=== PATIENT | male | born 1955 | race Caucasian/White ===

== ENCOUNTER 2022-09-25 19:50 | Outpatient (OUT) | payer OTHER, SELFPAY | END 2022-09-25 19:51 | disposition home or self-care (01) | LOC: SLEEP 19:50 | PROVIDERS: PCP Psychiatry & Neurology Neurology; Visit Provider Psychiatry & Neurology Neurology | DX: G47.33 Obstructive sleep apnea (adult) (pediatric) (principal) | CPT/HCPCS: 95811 ==

== ENCOUNTER 2023-04-11 09:25 | Outpatient (OUT) | payer MEDICARE, SELFPAY ==
--- NOTE | 2023-04-11 | XR_ITS ---
The [address] [address] Patient Name: ANAI PELAYO MRN: [id number] date: 1955 Sex: M Assigned Patient Location: Current Patient Location: Accession/Order Number: [id number] Exam Date: 04/11/2023 09:44 Report Date: 04/11/2023 11:04 At the request of: SALINA LEE Procedure: XR foot LT min 3V PROCEDURE: XR ankle LT min 3V, XR foot LT min 3V HISTORY: LEFT ANKLE PAIN , left foot pain COMPARISON: None FINDINGS: BONES:Small area of cortical lucency/destruction along lateral margin of lateral malleolus. No fracture or dislocation. 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 SOFT TISSUES:Soft tissue swelling and skin surface defect lateral to the lateral malleolus suggestive of ulceration. Soft tissue swelling/postsurgical changes overlying distal site of amputation. Atherosclerotic coronary artery disease. EFFUSION:None visible. OTHER: Negative. XR/XR foot LT min 3V IMPRESSION: 1. Soft tissue ulceration overlying the lateral malleolus with mild cortical destruction of the lateral malleolus suggesting osteomyelitis. Electronically authenticated by: ARLEN ALEXANDRA Date: 04/11/2023 11:04
--- NOTE | 2023-04-11 | XR_ITS ---
The [address] [address] Patient Name: ANAI PELAYO MRN: [id number] date: 1955 Sex: M Assigned Patient Location: Current Patient Location: Accession/Order Number: [id number] Exam Date: 04/11/2023 09:44 Report Date: 04/11/2023 11:04 At the request of: SALINA LEE Procedure: XR ankle LT min 3V PROCEDURE: XR ankle LT min 3V, XR foot LT min 3V HISTORY: LEFT ANKLE PAIN , left foot pain COMPARISON: None FINDINGS: BONES:Small area of cortical lucency/destruction along lateral margin of lateral malleolus. No fracture or dislocation. 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 SOFT TISSUES:Soft tissue swelling and skin surface defect lateral to the lateral malleolus suggestive of ulceration. Soft tissue swelling/postsurgical changes overlying distal site of amputation. Atherosclerotic coronary artery disease. EFFUSION:None visible. OTHER: Negative. XR/XR ankle LT min 3V IMPRESSION: 1. Soft tissue ulceration overlying the lateral malleolus with mild cortical destruction of the lateral malleolus suggesting osteomyelitis. Electronically authenticated by: ARLEN ALEXANDRA Date: 04/11/2023 11:04
== END 2023-04-11 09:26 | disposition home or self-care (01) ==
LOC: WC 09:26
PROVIDERS: PCP Psychiatry & Neurology Neurology; Visit Provider Podiatrist Foot & Ankle Surgery
DX: L89.523 Pressure ulcer of left ankle, stage 3 (principal)
CPT/HCPCS: 73610; 73630; A6213; G0463

== ENCOUNTER 2023-04-16 07:50 | Outpatient (OUT) | payer MEDICARE, SELFPAY ==
--- OUTSIDE RECORDS SUMMARY | 2023-04-16 07:56 | XMS_ITS | CCD ---
Author Name Unknown Address [address] [place] [address] Organization [facility] Care Team Providers Care Program Paraprofessional Name Role Phone IRAIS, DEON ESPINO Primary Care Unavailable Chirag Gutierrez DO Attending Un available UNIQUESDEON Consulting Unavailable YUHAS, DEON SRINIVAS Primary Care Unavailable Chirag Gutierrez DO Attending Un available YUHAS, DEON SRINIVAS Consulting Unavailable YUHAS, DEON SRINIVAS Primary Care Unavailable Chirag Gutierrez DO Attending Un available YUHAS, DEON SRINIVAS Primary Care Unavailable Chirag Gutierrez DO Attending Un available Pako Aguilar Unavailable Reddy Brandt Unavailable DO Deon Braxton Primary Care Provider DO Reddy Brandt Attending Provider DO Reddy Brandt Referring Provider CRISTINA Bailey Attending Provider DO Reddy Brandt Admit Provider [phone] NBA Hope Other Provider Unavailable NBA Ruiz Other Provider Unavailable NBA Sorensen Other Provider Unavailable NBA Jasso Other Provider Unavailable NBA Frederick Other Provider Unavailable NBA Parmar Other Provider Unavailable MD Fredi Mendez Other Provider KRUNAL Galvin Other Provider [phone] DO Julia Segura Other Provider MD Armando Hanks Other Provider DO Golden Whatley Other Provider MD Adi Feng Other Provider MD Letty Turpin Other Provider Polly ANP-BC Faviola Other Provider [phone] MD Brett Muñoz Other Provider MD Dennis Larson Other Provider MD Rodriguez Loera Other Provider MD Cuauhtemoc Ramos Other Provider MD Darien Maria Other Provider MD Stewart Lucio Other Provider MD Sonido Murillo Other Provider Reba, SYSTEM DISPATCHER-C Mai Vega Other Provider [phone] MD Christiano Evans Other Provider MD Isidro Antunez Other Provider MD Rosalind Coburn Other Provider MD Bill Osei Other Provider DO Lizbeth Mcbride Other Provider Al MD Fabio Fernandez Other Provider DO Kwesi Muhammad Other Provider KRUNAL Patel Other Provider DO Bin Carrera Other Provider MD Patti Taylor Other Provider NBA Munoz Other Provider Unavailable BALJEET LEONG Admitting UnavailBALJEET Moss Attending UnavailDR DEON Au Primary Care Unavailable DR DEON BRAXTON Primary Care Unavailable SALINA LEE Consulting Unavailable SALINA LEE Attending Unavailable SALINA LEE Admitting Unavailable ENMANUEL MCKAY Consulting Unavailable ENMANUEL MCKAY Attending Unavailable ENMANUEL MCKAY Admitting Unavailable YUKAI, DR CHAVARRIA Primary Care Unavailable BALJEET LEONG Consulting Unavailabl e CLOUNAERTYBALJEET Attending Unavailabl e CLOUNAERTYBALJEET Admitting Unavailabl e YUMARVAS, DR CHAVARRIA Primary Care Unavailable YUAKI, DR CHAVARRIA Primary Care Unavailable LEON, DR CLEMENTS Consulting Unavailable BLANK, DR CLEMENTS Attending Unavailable BLANK, DR CLEMENTS Admitting Unavailable CLOBALJEET SIERRA O Attending Unavailabl e CLOUNAERTYBALJEET Admitting Unavailabl e YUMARVAS, DR CHAVARRIA Primary Care Unavailable CLOMARIELA, BALJEET O Admitting Unavailabl e YUHAS, DR CHAVARRIA Primary Care Unavailable BALJEET LEONG O Attending Unavailabl e JESUS, SALINA Walker Attending Unavailable IRAIS, DR CHAVARRIA Primary Care Unavailable HIGHLARIS, SALINA Walker Consulting Unavailable JESUS, SALINA Walker Admitting Unavailable JESUS, SALINA Walker Attending Unavailable YUKAI, DR CHAVARRIA Primary Care Unavailable SALINA LEE Admitting Unavailable HIGHLARIS, SALINA Walker Attending Unavailable YUMARVAS, DR CHAVARRIA Primary Care Unavailable SALINA LEE Admitting Unavailable BALJEET LEONG Admitting Unavailabl e CLOUNAERTYBALJEET O Attending Unavailabl e JAZIEL, DR ANAI Edmond Consulting Unavailable IRAIS, DR CHAVARRIA Primary Care Unavailable BALJEET LEONG Consulting Unavailabl e YUMARVAS, DR CHAVARRIA Primary Care Unavailable SALINA LEE Attending Unavailable WEST, DR ANAI Edmond Consulting Unavailable SALINA LEE Admitting Unavailable SALINA LEE Consulting Unavailable BALJEET LEONG Attending Unavailabl e CLOBALJEET SIERRA Admitting Unavailabl e WEST, DR ANAI Edmond Consulting Unavailable IRAIS, DR CHAVARRIA Primary Care Unavailable BALJEET LEONG O Consulting Unavailabl e CLOUGHERTYBALJEET O Admitting Unavailabl e CLOUGHERTYBALJEET O Consulting Unavailabl e CLOUNAERTYBALJEET O Attending Unavailabl e YUMARVAS, DR CHAVARRIA Primary Care Unavailable CLOBALJEET SIERRA Attending Unavailabl e CLOBALJEET SIERRA Admitting Unavailabl e YUMARVAS, DR CHAVARRIA Primary Care Unavailable CLOBALJEET SIERRA O Attending Unavailabl e YUHAS, DR CHAVARRIA Primary Care Unavailable CLOBALJEET SIERRA O Admitting Unavailabl e YUHAS, DR CHAVARRIA Primary Care Unavailable HIGHLARIS, SALINA Walker Attending Unavailable HIGHLSALINA HURST Admitting Unavailable YUHAS, DR CHAVARRIA Primary Care Unavailable HIGHLANDERSALINA Attending Unavailable HIGHLSALINA HURST Admitting Unavailable CLOUNAERTY, BALJEET Payan Attending Unavailabl e CLOUNAERTYBALJEET O Admitting Unavailabl e YUMARVAS, DR CHAVARRIA Primary Care Unavailable CLOUGHERTY, BALJEET O Admitting Unavailabl e CLOUGHERTY, BALJEET O Attending Unavailabl e YUKAI, DR CHAVARRIA Primary Care Unavailable CLOUGHERTY, BALJEET O Admitting Unavailabl e CLOUGHERTY, BALJEET O Attending Unavailabl e IRAIS, DR CHAVARRIA Primary Care Unavailable IRAIS, DR CHAVARRIA Primary Care Unavailable HIGHLANDER, SALINA Walker Attending Unavailable HIGHLANDER, SALINA Walkre Admitting Unavailable HIGHLANDER, SALINA Walker Attending Unavailable SAN FIDEL, DR ANAI Edmond Consulting Unavailable HIGHLANDER, SALINA Walker Admitting Unavailable YUHAS, DR CHAVARRIA Primary Care Unavailable HIGHLANDER, SALINA Walker Consulting Unavailable HIGHLANDER, SALINA Walker Attending Unavailable HIGHLANDER, SALINA Walker Admitting Unavailable YUHAS, DR CHAVARRIA Primary Care Unavailable ZIER, DR ARLEN Patel Consulting Unavailable [facility]ATION[facility], SALINA Walker Consulting Unavailable HIGHLANDER, SALINA Walker Attending Unavailable HIGHLANDER, SALINA Walker Admitting Unavailable YUHAS, DR CHAVARRIA Primary Care Unavailable HIGHLANDER, SALINA Walker Attending Unavailable HIGHLSALINA HURST Admitting Unavailable YUHAS, DR CHAVARRIA Primary Care Unavailable [facility] AD[facility]IST[facility]ATION[facility], SALINA Walker Attending Unavailable YUMARVAS, DR CHAVARRIA Primary Care Unavailable HIGHLANDER, SALINA Walker Admitting Unavailable HIGHLANDER, SALINA Walker Attending Unavailable YUHAS, DR CHAVARRIA Primary Care Unavailable HIGHLANDER, SALINA Walker Consulting Unavailable [facility] ADMINISTRATION[facility]ER, SALINA Walker Admitting Unavailable CLOUNAERTY, BALJEET O Attending Unavailabl e CLOUNAERTYBALJEET Admitting Unavailabl e IRAIS, DR CHAVARRIA Primary Care Unavailable DANIAERTY, BALJEET O Admitting Unavailabl e CLOUGHERTY, BALJEET O Attending Unavailabl e YUKAI, DR CHAVARRIA Primary Care Unavailable CLOUGHERTY, BALJEET O Admitting Unavailabl e CLOUGHERTY, BALJEET O Attending Unavailabl e IRAIS, DR CHAVARRIA Primary Care Unavailable IRAIS, DR CHAVARRIA Primary Care Unavailable HIGHLANDER, SALINA Walker Attending Unavailable HIGHLARIS, SALINA Walker Admitting Unavailable CLOUGHERTY, DELONG O Admitting Unavailabl e CLOUGHERTY, DELONG O Attending Unavailabl e RIAIS, DR CHAVARRIA Primary Care Unavailable CLOMARIELA, BALJEET O Admitting Unavailabl e CLOUGHERTY, BALJEET O Attending Unavailabl e JAZIEL, DR ANAI Edmond Consulting Unavailable YUHAS, DR CHAVARRIA Primary Care Unavailable CLOUGHERTY, BALJEET Payan Consulting Unavailabl e HIGHLANDER, SALINA Walker Attending Unavailable HIGHLANDER, SALINA Walker Admitting Unavailable YUHAS, DR CHAVARRIA Primary Care Unavailable CLOUGHERTY, BALJEET Payan Attending Unavailabl e CLOUGHERTY, BALJEET O Admitting Unavailabl e YUHAS, DR CHAVARRIA Primary Care Unavailable HIGHLANDER, SALINA Walker Attending Unavailable YUHAS, DR CHAVARRIA Primary Care Unavailable HIGHLANDER, SALINA Walker Consulting Unavailable HIGHLANDER, SALINA Walker Admitting Unavailable MARINOTERRY Consulting Unavailable YUHAS, DR CHAVARRIA Primary Care Unavailable HIGHLANDER, SALINA Walker Attending Unavailable HIGHLANDER, SALINA Walker Admitting Unavailable YUHAS, DR CHAVARRIA Primary Care Unavailable CLOUGHERTY, BALJEET Payan Attending Unavailabl e CLOUGHERTY, BALJEET O Admitting Unavailabl e WEST, DR ANAI Edmond Consulting Unavailable CLOUGHERTY, DELONG O Consulting Unavailabl e CLOUGHERTY, BALJEET O Attending Unavailabl e CLOUGHERTY, BALJEET O Admitting Unavailabl e ZIEBER, DR ARLEN Patel Consulting Unavailable YUHAS, DR CHAVARRIA Primary Care Unavailable CLOUGHERTY, BALJEET O Consulting Unavailabl e HIGHLANDER, SALINA Walker Attending Unavailable HIGHLANDER, SALINA Walker Admitting Unavailable ZIEBER, DR ARLEN Patel Consulting Unavailable YUHAS, DR CHAVARRIA Primary Care Unavailable HIGHLANDER, SALINA Walker Consulting Unavailable HIGHLANDER, SALINA Walker Attending Unavailable HIGHLANDER, SALINA Walker Admitting Unavailable WEST, DR ANAI Edmond Consulting Unavailable YUHAS, DR CHAVARRIA Primary Care Unavailable HIGHLANDER, SALINA Walker Consulting Unavailable HIGHLANDER, SALINA Walker Attending Unavailable HIGHLANDER, SALINA Walker Admitting Unavailable YUHAS, DR CHAVARRIA Primary Care Unavailable HIGHLANDER, SALINA Walker Consulting Unavailable YUHAS, DR CHAVARRIA Primary Care Unavailable HIGHLANDER, SALINA Walker Attending Unavailable HIGHLANDER, SALINA Walker Admitting Unavailable WEST, DR ANAI Edmond Consulting Unavailable HIGHLANDERSALINA Consulting Unavailable YUHAS, DR CHAVARRIA Primary Care Unavailable HIGHLANDER, SALINA Walker Attending Unavailable HIGHLANDER, SALINA Walker Admitting Unavailable WEST, DR ANAI Edmond Consulting Unavailable HIGHLANDERSALINA Consulting Unavailable MIRZAANAI Unavailable YUHAS, DR CHAVARRIA Primary Care Unavailable HIGHLANDER, SALINA Walker Attending Unavailable HIGHLANDER, SALINA Walker Admitting Unavailable HIGHLANDER, SALINA Walker Attending Unavailable HIGHLANDER, SALINA Walker Admitting Unavailable YUHAS, DR CHAVARRIA Primary Care Unavailable HIGHLANDER, SALINA Walker Attending Unavailable HIGHLANDER, SALINA Walker Admitting Unavailable YUHAS, DR CHAVARRIA Primary Care Unavailable BALJEET LEONG Attending Unavailabl e CLOUGHERTY, BALJEET O Admitting Unavailabl e YUHAS, DR CHAVARRIA Primary Care Unavailable CLOUGHERTY, BALJEET O Attending Unavailabl e CLOUGHERTY, BALJEET O Admitting Unavailabl e YUHAS, DR CHAVARRIA Primary Care Unavailable CLOMARIELA, BALJEET O Attending Unavailabl e CLOUGHERTY, BALJEET O Admitting Unavailabl e YUHAS, DR CHAVARRIA Primary Care Unavailable DONALD BRADLEY Attending Unavailable KIRK, DONALD Admitting Unavailable YUHAS, DR CHAVARRIA Primary Care Unavailable DONALD BRADLEY Consulting Unavailable KLYM, CHARLES Consulting Unavailable FAWSHENA, H Attending Unavailable FATARA, H Admitting Unavailable YUHAS, DR CHAVARRIA Primary Care Unavailable BAUM, DR ALBER Rich Consulting Unavailable WEST, DR ANAI Edmond Consulting Unavailable ZIEBER, DR ARLEN Patel Consulting Unavailable SALOME, SANTOS Consulting Unavailable JESUS, SALINA Walker Consulting Unavailable AGUBOSIM, MICHELA Consulting Unavailable BIANCA, JORDI Consulting Unavailable SUZANNE, SHERINE Consulting Unavailable FATARA, H Consulting Unavailable SALINA LEE Procedure Practitioner Unava ilable FRENCH, MARIA E Consulting Unavailable WOODY, AMAR Consulting Unavailable YUHAS, DR CHAVARRIA Primary Care Unavailable HIGHLARIS, SALINA Walker Attending Unavailable SALINA LEE Consulting Unavailable SALINA LEE Admitting Unavailable SALINA LEE Attending Unavailable WEST, DR ANAI Edmond Consulting Unavailable YUHAS, DR CHAVARRIA Primary Care Unavailable SALINA LEE Admitting Unavailable SALINA LEE Consulting Unavailable BALJEET LEONG O Attending Unavailabl e CLOUGHERTYBALJEET O Admitting Unavailabl e YUHAS, DR CHAVARRIA Primary Care Unavailable BALJEET LEONG Attending Unavailabl e CLOUGHERTYBALJEET O Admitting Unavailabl e YUHAS, DR CHAVARRIA Primary Care Unavailable BALJEET LEONG O Attending Unavailabl e CLOUGHERTYBALJEET O Admitting Unavailabl e YUHAS, DR CHAVARRIA Primary Care Unavailable MD Ghanshyam Kaye Admit Provider MD Ghanshyam Kaye Attending Provider MD Bronwyn Alegre Other Provider ROHIT Palacios Emergency Provider Sebastian DO César Vega Emergency Provider Yumarvas, DO Chavarria Primary Care Provider DO Reddy Brandt A Attending Provider [phone] Yuhas, DO Deon Primary Care Provider [phone] DO Karly Reddy A Attending Provider [phone] Cortes, DO César Vega Emergency Provider [phone] Karly, Reddy A Admit Provider [phone] VargasGhanshyam Unavailable Yuhas, DO Chavarria Primary Care Provider [phone] DO Karly Reddy A Attending Provider Dung Serna Unavailable Dung Serna Admitting Unavailable Dung Serna Attending Unavailable [facility] Primary Care Unavailable Karly, Reddy A Attending Unavailable Karly, Reddy A Admitting Unavailable [facility] Primary Care Unavailable [facility] Primary Care Unavailable Karly, Reddy A Admitting Unavailable Karly, Reddy A Attending Unavailable Karly, Reddy A Attending Unavailable [facility] Primary Care Unavailable Karly, Reddy A Admitting Unavailable Karly, Reddy A Admitting Unavailable [facility] Primary Care Unavailable Karly, Reddy A Attending Unavailable Jessy Hope Consulting Unavailable Marci Ruiz Consulting Unavailable Aliza Sorensen Consulting Unavailable Tatiana Jasso Consulting Unavailable Radha Frederick Consulting Unavailable Jana Parmar Consulting Unavailable Andrea, Fredi K Consulting Unavailable Dialanival Drea M Consulting Unavailable Julia Segura Consulting Unavailable Armando Hanks Consulting Unavailable Golden Whatley Consulting UnavailAdi Cabrera Consulting Unavailable Letty Turpin Consulting Unavailable Faviola Matias Consulting Unavailable Brett Muñoz Consulting Unavailable Dennis Larson Consulting Unavailable Rodriguez Loera Consulting Unavailable Cuauhtemoc Ramos Consulting Unavailable Darien Maria Consulting Unavailable Stewart Lucio Consulting Unavailable Sonido Murillo Consulting Unavailable Mai Britton Consulting Unavailable Christiano Evans Consulting Unavailab le Tulio, Isidro Consulting Unavailable Almas, Rosalind Consulting Unavailable Farnaz, Bill Consulting Unavailable Lizbeth Mcbride Consulting Unavailable Al Katalina Sanchez, Fabio Consulting Unavailab le Jb, Kwesi R Consulting Unavailable Obika, Bre Consulting Unavailable Bin Carrera Consulting Unavailable Daromar, Obaydah M Consulting Unavailable Kassandra Munoz Consulting Unavailable Ghanshyam Kaye Admitting Unavailable [facility] Primary Care Unavailable Ghanshyam Kaye Attending Unavailable Jessy Hope Consulting Unavailable Marci Ruiz Consulting Unavailable Aliza Sorensen Consulting Unavailable Tatiana Jasso Consulting Unavailable Radha Frederick Consulting Unavailable Jana Parmar Consulting Unavailable Bronwyn Alegre Consulting Unavailable AndreaFredi Consulting Unavailable Drea Galvin Consulting Unavailable Julia Segura Consulting Unavailable Armando Hanks Consulting Unavailable Golden Whatley Consulting UnavailAdi Cabrera Consulting Unavailable Letty Turpin Consulting Unavailable Faviola Matias Consulting Unavailable Brett Muñoz Consulting Unavailable Dennis Larson Consulting Unavailable Rodriguez Loera Consulting Unavailable Cuauhtemoc Ramos Consulting Unavailable Darien Maria Consulting Unavailable Stewart Lucio Consulting Unavailable Sonido Murillo Consulting Unavailable Mai Britton Consulting Unavailable DoameChristiano de dios Consulting Unavailab le Tulio, Isidro Consulting Unavailable Almas, Rosalind Consulting Unavailable Farnaz, Bill Consulting Unavailable Lizbeth Mcbride Consulting Unavailable Al Katalina Sanchez, Fabio Consulting Unavailab orquidea Muhammad, Kwesi R Consulting Unavailable Obika, Bre Consulting Unavailable Bin Carrera Consulting Unavailable Daromar, Obaydah M Consulting Unavailable Munoz, Kassandra Consulting Unavailable [facility] Primary Care Unavailable Christiano Palacios Attending Unavailable Christiano Palacios Admitting Unavailable Reddy Brandt Attending Unavailable Reddy Brandt Admitting Unavailable [facility] Deon Primary Care Unavailable Reddy Brandt Admitting Unavailable [facility] Primary Care Unavailable Reddy Brandt Attending Unavailable YOVANNY CALHOUN Attending Unavailable YOVANNY CALHOUN Referring Unavailable YOVANNY CALHOUN Attending Unavailable YOVANNY CALHOUN Referring Unavailable DEON BRAXTON Primary Care Unavailable Deon Braxton DO Primary Care Provider TERRY LOCK Attending Unavailable DEON BRAXTON Referring Unavailable DEON BRAXTON Primary Care Unavailable Allergies Allergy Classification Reported Allergen(s) Allergy Type Date of Onset Reaction(s) Facility (18 sources) Chlorpheniramine; Translations: [chlorpheniramine] Drug Allergy 07-02-19 21 [facility] Repository (14 sources) Dextromethorphan; Translations: [dextromethorphan] Drug Allergy 10-19-19 22 Unknown Reaction [facility] Repository (20 sources) Doxycycline; Translations: [doxycycline] Drug Allergy 04-02-19 21 FELT LIKE A HEART ATTACK, Chest Pain [facility] Repository (17 sources) guaiFENesin; Translations: [guaiFENesin] Drug Allergy 04-14-19 16 [facility] Repository (17 sources) levoFLOXacin; Translations: [levoFLOXacin] Drug Allergy 04-02-19 21 Chest Pain [facility] Repository (18 sources) Phenylephrine; Translations: [phenylephrine] Drug Allergy 07-02-19 21 Unknown Reaction [facility] Repository (1 source) Tussionex [employer]; Translations: [Tussionex [employer]] Propensity to adverse reactions to drug (disorder) [facility] Repository (20 sources) Tussin Drug allergy [facility] [address] Other (15 sources) HYDROcodone; Translations: [hydrocodone] Drug Allergy 10-19-19 22 [facility] (4 sources) Chlorpheniramine / HYDROcodone; Translations: [TUSSIONEX] Drug Allergy [facility] Repository (4 sources) Dextromethorphan; Translations: [DEXTROMETHORPHAN HBR] Drug Allergy 10-18-19 23 Itching [facility] Repository (4 sources) [id number] INOPHEN; Translations: [[id number] MINOPHEN] Propensity to adverse reactions to drug (disorder) 02-04-20 22 [facility] Repository (2 sources) Chlorpheniramine / HYDROcodone Drug Allergy Itching [facility] Medications Current Medications Medication Drug Class(es) Dates Sig (Normalized) Sig (Original) acetaminophen 500 mg oral tablet (13 sources) Start: 10-27-2021 take 500 mg by mouth every four hours Acetaminophen Active 500 MG PO Q4H 100 October 26, 2021 11:00pm take 1 capsule by mouth every si x hours Acetaminophen 500 MG 1 capsule as needed Orally every 6 hrs Active [id number] 200 actuat albuterol 0.09 mg/actuat metered dose inhaler (20 sources) beta2-Adrenergic Agonist Start: 10-27-2021 take 1 puff(s) by inhalation once daily Albuterol Sulfate (Ventolin Hfa) 90 mcg/actuation Hfa Aerosol Inhaler Active 2 PUFF INHALATION Daily 05 01October 26, 2021 11:00pm Start: 10-14-2021 End: 10-27-2021 Albuterol Sulfate Discontinu ed 2 INH INHALATION Daily 2021 11:00pm October 27, 2021 8:20am albuterol (PROVE NTIL HFA;VENTOLIN HFA) 90 mcg/actuation inhaler Indications: bronchospasm prevention Inhale 2 puffs as needed Indications: bronchospasm prevention. 0 Active Albuterol Active albuterol 0.833 mg/ml / ipratropium bromide 0.167 mg/ml inhalation solution (2 sources) Anticholinergic, beta2-Adrenergic Agonist Start: 11-09-2022 ipratropium-albuteroL (DUONEB) 0.5 mg-3 mg(2.5 mg base)/3 mL nebulizer Indications: COPD with acute exacerbation ([facility]) USE 3 ML VIA NEBULIZER FOUR TIMES DAILY 1080 mL 1 11/09/2022 Active allopurinol 100 mg oral tablet (20 sources) Xanthine Oxidase Inhibitor Start: 03-23-2023 take 2 tablets by mouth in the morning allopurinoL (ZYLOPRIM) 100 mg tablet Indications: Hyperuricemia Take 2 tablets (200 mg total) by mouth in the morning. 180 tablet 1 03/23/2023 Active Start: 10-14-2021 End: 10-27-2021 take 100 mg by mouth once daily at bedtime Allopurinol Active 100 MG PO Daily at bedtime October 26, 2021 11:00pm apixaban 5 mg oral tablet (20 sources) Factor Xa Inhibitor Start: 10-14-2021 End: 10-27-2021 take 1 tablet by mouth in the morning, then take 1 tablet by mouth at bedtime apixaban (ELIQUIS) 5 mg tablet Take 1 tablet (5 mg total) by mouth in the morning and 1 tablet (5 mg total) before bedtime. 60 tablet 11 10/14/2021 Active atorvastatin 80 mg oral tablet (20 sources) HMG-CoA Reductase Inhibitor Start: 09-12-2022 take 1 tablet by mouth in the morning atorvastatin (LIPITOR) 80 mg tablet Indications: hyperlipidemia Take 1 tablet (80 mg total) by mouth in the morning. Indications: excessive fat in the blood. 90 tablet 1 09/12/2022 Active Start: 10-14-2021 End: 10-27-2021 take 80 mg by mouth once daily in the morning Atorvastatin Active 80 MG PO Every morning October 26, 2021 11:00pm benzonatate 200 mg oral capsule (2 sources) Non-narcotic Antitussive Start: 11-03-2022 take 1 capsule by mouth four times daily as needed for cough benzonatate (TESSALON PERLES) 200 mg capsule Indications: Chronic obstructive pulmonary disease, unspecified COPD type (CMS-HCC) Take 1 capsule (200 mg total) by mouth 4 (four) times a day as needed for cough. 20 capsule 0 11/03/2022 Active bumetanide 2 mg oral tablet (20 sources) Loop Diuretic Start: 02-18-2023 take 1 tablet by mouth once daily bumetanide (BUMEX) 2 mg tablet Indications: Chronic systolic congestive heart failure (CMS-HCC) TAKE 1 TABLET(2 MG) BY MOUTH DAILY 90 tablet 1 02/18/2023 Active Start: 10-27-2021 take 1 mg by mouth twice daily Bumetanide Active 1 MG PO Twice daily 60 October 26, 2021 11:00pm Start: 10-14-2021 End: 10-27-2021 take 2 mg by mouth twice daily Bumetanide Discontinued 2 MG PO Twice daily 2021 11:00pm October 27, 2021 8:20am take 1 tablet by michael th every twenty-four hours Bumetanide 1 MG 1 tablet Orally Once a day Active carvedilol 6.25 mg oral tablet (20 sources) alpha-Adrenergic Doreen, beta-Adrenergic Doreen Start: 06-12-2022 take 1 tablet by mouth in the morning, then take 1 tablet by mouth at bedtime carvediloL (COREG) 6.25 mg tablet Take 1 tablet (6.25 mg total) by mouth in the morning and 1 tablet (6.25 mg total) before bedtime. 180 tablet 3 06/12/2022 Active Start: 10-14-2021 End: 10-27-2021 take 6.25 mg by mouth twice daily Carvedilol Active 6. 25 MG PO Twice daily 60 October 26, 2021 11:00pm take 1 tablet by michael th at mealtime Carvedilol 12.5 MG 1 tablet with food Orally Active cholecalciferol 0.125 mg oral tablet (20 sources) Vitamin D Start: 10-27-2021 take 1 tablet by mouth twice daily Cholecalciferol (Vitamin D3) (Vitamin D3) 125 mcg (5,000 unit) Tablet Active 250 MCG PO Twice daily 120 October 26, 2021 11:00pm Start: 10-14-2021 End: 10-27-2021 take 250 ug by mouth twice daily Cholecalciferol (Vitamin D3) Discontinued 250 MCG PO Twice daily 2021 11:00pm October 27, 2021 8:20am cholecalciferol, vitamin D3, (VITAMIN D3) 5,000 units capsule Take by mouth daily. 250 mcg 0 Active take 1 tablet by michael th every twenty-four hours Vitamin D 25 MCG (1000 UT) 1 tablet Orally Once a day Active Co Q 10 10 MG (20 sources) Co Q 10 10 MG as directed Orally Active Coenzyme Q10 (9 sources) Start: 10-27-2021 Coenzyme Q10 A ctive 200 MG PO Every morning October 26, 2021 11:00pm Start: 10-27-2021 Coenzyme Q10 A ctive 200 MG PO Every morning October 27, 2021 12:00am collagenase 0.25 unt/mg topical ointment (2 sources) Collagen-specific Enzyme Start: 03-22-2023 End: 06-20-2023 collagenase (SantyL) ointment Apply 1 Application topically in the morning. 0 03/22/2023 06/20/2023 Active dapagliflozin 10 mg oral tablet (6 sources) Sodium-Glucose Cotransporter 2 Inhibitor Start: 10-26-2022 take 1 tablet by mouth in the morning dapagliflozin propanediol (FARXIGA) 10 mg tablet Indications: Chronic systolic congestive heart [place] [place] 1 tablet (10 mg total) by mouth in the morning. 90 tablet 1 10/26/2022 Active take 5 mg by mouth once daily FA RXIGA 5mg As directed P.O. Daily Active flash glucose sensor (FREESTYLE LELO 2 SENSOR) kit (2 sources) Start: 02-18-2023 flash glucose sensor (FREESTYLE LELO 2 SENSOR) kit Indications: Type 2 diabetes mellitus with diabetic neuropathic arthropathy, with long-term current use of insulin [place] [place] CHANGE EVERY 2 WEEKS DIRECTED 6 kit 3 02/18/2023 Active 60 actuat fluticasone propionate 0.232 mg/actuat / salmeterol xinafoate 0.014 mg/actuat dry powder inhaler (13 sources) Corticosteroid , beta2-Adrenerg ic Agonist Start: 10-27-2021 take 1 puff(s) by inhalation twice daily Fluticasone Propion-Salmeterol Active 1 PUFF INHALATION Twice daily October 26, 2021 11:00pm take 1 puff(s) by in halation twice daily Fluticasone-Salmeterol 232-14 MCG/ACT 1 puff Inhalation Twice a day Active Fluticasone Furoate-Vilanterol (Breo Ellipta) 200-25 mcg/dose Blister With Device (1 source) Start: 10-14-2021 Fluticasone Furoate-Vilanterol (Breo Ellipta) 200-25 mcg/dose Blister With Device Active 1 INH INHALATION Every morning October 14, 2021 12:00am gabapentin (3 sources) Anti-epile ptic Agent Gabapentin Active Insulin Aspart U-100 (Novolog Flexpen U-100 Insulin) 100 unit/mL (3 mL) Insulin Pen (18 sources) Start: 10-27-2021 inject 1 dose by subcutaneous injection once at mealtime Insulin Aspart U-100 (Novolog Flexpen U-100 Insulin) 100 unit/mL (3 mL) Insulin Pen Active 1 sliding scale dose SUBCUT 3X/Day with meals and bedtime October 26, 2021 11:00pm Start: 10-27-2021 Insulin Aspart U-100 (Novolog Flexpen U-100 Insulin) 100 unit/mL (3 mL) Insulin Pen Active 0 UNITS SUBCUT 3x/Day with meals and bedtime October 26, 2021 11:00pm Start: 10-27-2021 inject 1 dose by sub cutaneous injection once at mealtime Insulin Aspart U-100 (Novolog Flexpen U-100 Insulin) 100 unit/mL (3 mL) Insulin Pen Active 1 sliding scale dose SUBCUT 3X/Day with meals and bedtime October 27, 2021 12:00am Start: 10-27-2021 Insulin Aspart U-100 (Novolog Flexpen U-100 Insulin) 100 unit/mL (3 mL) Insulin Pen Active 0 UNITS SUBCUT 3x/Day with meals and bedtime October 27, 2021 12:00am 3 ml insulin detemir 100 unt/ml pen injector (13 sources) Insulin Analog Start: 10-27-2021 Insulin Detemi r U-100 (Levemir Flextouch U-100 Insuln) 100 unit/mL (3 mL) Insulin Pen Active 40 UNIT SUBCUT Daily at bedtime October 26, 2021 11:00pm Levemir 100 UNIT /ML as directed Subcutaneous Active Levemir 100 UNIT /ML as directed Subcutaneous Active insulin glargine 100 unt/ml injectable solution (20 sources) Insulin Analog Start: 11-09-2022 End: 04-13-2023 insulin glargine (LANTUS) 100 unit/mL injection Indications: type 2 diabetes mellitus Inject 0.7 mL (70 Units total) under the skin nightly Indications: type 2 diabetes mellitus. 60 mL 0 04/13/2023 Active insulin lispro 100 unt/ml injectable solution (2 sources) Insulin Analog Start: 03-22-2023 ADMELOG U-100 INSULIN LISPRO 100 unit/mL solution Indications: Type 2 diabetes mellitus with diabetic neuropathic arthropathy, with long-term current use of insulin [place] [place] Inject 15 Units under the skin in the morning and 15 Units at noon and 15 Units in the evening. Inject with meals. 0 03/22/2023 Active linezolid 600 mg oral tablet (2 sources) Oxazolidinone Antibacterial take 1 tablet by mouth in the morning, then take 1 tablet by mouth at bedtime linezolid (ZYVOX) 600 mg tablet Take 1 tablet (600 mg total) by mouth in the morning and 1 tablet (600 mg total) before bedtime. 0 Active losartan potassium 25 mg oral tablet (20 sources) Angiotensin 2 Receptor Doreen Start: 10-10-2022 take 1 tablet by mouth in the morning losartan (COZAAR) 25 mg tablet TAKE 1 TABLET(25 MG) BY MOUTH IN THE MORNING 90 tablet 0 10/10/2022 Active Start: 10-14-2021 End: 10-27-2021 take 25 mg by mouth once daily in the morning Losartan Active 25 MG PO Every morning October 26, 2021 11:00pm take 1 tablet by michael th every twenty-four hours magnesium oxide 400 mg oral tablet (20 sources) Start: 10-14-2021 End: 10-27-2021 take 400 mg by mouth once daily in the morning Magnesium Oxide Active 400 MG PO Every morning October 26, 2021 11:00pm multivitamin (THERAGRAN) tablet (2 sources) take 1 tablet by mouth in the morning multivitamin (THERAGRAN) tablet Take 1 tablet by mouth in the morning. 0 Active Multivitamin With Folic Acid (Thera) 400 mcg Tablet (9 sources) Start: 10-27-2021 take 1 tablet by mouth once daily in the morning Multivitamin With Folic Acid (Thera) 400 mcg Tablet Active 1 TAB PO Every morning October 26, 2021 11:00pm Start: 10-27-2021 take 1 tablet by michael th once daily in the morning Multivitamin With Folic Acid (Thera) 400 mcg Tablet Active 1 TAB PO Every morning October 27, 2021 12:00am Nitro Sublingual 0.4 0.4mg (4 sources) Nitro Sublingual 0.4 0.4mg 1 Sublingual Every 5min x3 Active nitroglycerin 0.4 mg sublingual tablet (20 sources) Nitrate Vasodilator Start: 07-06-19 End: 10-28-19 22 nitroglycerin (NITROSTAT) 0.[address] 1 tablet (0.4 mg total) under the tongue as needed for chest pain. 90 tablet 2 07/05/2020 Active oxyCODONE hydrochloride 5 mg oral tablet (9 sources) Opioid Agonist Start: 11-04-19 take 1 tablet by mouth every six hours Oxycodone (Roxicodone) 5 mg tablet Active 5 MG PO Q6H 30 November 03, 2021 Start: 11-03-2021 take 1 tablet by michael th every six hours Oxycodone (Roxicodone) 5 mg tablet Active 5 MG PO Q6H 30 November 03, 2021 Start: 11-03-2021 take 1 tablet by michael th every six hours Oxycodone (Roxicodone) 5 mg tablet Active 5 MG PO Q6H 30 November 03, 2021 Ozempic (11 sources) Ozempic Active predniSONE 5 mg oral tablet (20 sources) Start: 12-21-2022 take 1 tablet by mouth every other day predniSONE (DELTASONE) 5 mg tablet Indications: Sarcoidosis with granulomatous hepatitis Take 1 tablet (5 mg total) by mouth every other day. 45 tablet 1 12/21/2022 Active Start: 10-14-2021 End: 10-27-2021 take 5 mg by mouth every other day Prednisone Discontinued 5 MG PO Q2D 2021 11:00pm October 27, 2021 8:20am take 1 tablet by imchael th every twenty-four hours spironolactone 25 mg oral tablet (20 sources) Aldosterone Antagonist Start: 07-13-2022 take 1 tablet by mouth once daily spironolactone (ALDACTONE) 25 mg tablet Indications: Chronic systolic congestive heart failure (CMS-HCC) TAKE 1 TABLET(25 MG) BY MOUTH EVERY DAY 90 tablet 2 07/13/2022 Active Start: 10-14-2021 End: 10-27-2021 take 25 mg by mouth once daily in the morning Spironolactone Active 25 MG PO Every morning October 26, 2021 11:00pm vitamin b12 1 mg extended re lease oral tablet (1 source) Vitamin B12 take 1 tablet by michael th every twenty-four hours Vitamin B12 1000 MCG (20 sources) take 1 tablet by mouth once ninoska y take 1 tablet by mouth once ninoska y Vitamin B12 1000 MCG 1 tablet Orally Once a day Active Vitamin C 250 MG (7 sources) take 1 tablet by mouth once ninoska y take 1 tablet by mouth once ninoska y Vitamin C 250 MG 1 tablet Orally Once a day Active Vitamin D 25 MCG (1000 UT) (20 sources) take 1 tablet by michael th once daily Vitamin D 25 MCG (1000 UT) 1 tablet Orally Once a day Active Completed/Discontinued Medications Medication Drug Class(es) Dates Sig (Normalized) Sig (Original) alendronic acid 70 mg oral tablet (20 sources) Bisphosphonate take 1 tablet by mouth once daily Alendronate Sodium 70 MG 1 tablet 30 minutes before the first food, beverage or medicine of the day with plain water Orally Not-Taking/PRN ascorbic acid 500 mg oral tablet (20 sources) Vitamin C Start: 10-14-2021 End: 10-27-2021 take 1 tablet by mouth once daily Ascorbic Acid (Vitamin C) (Vitamin C) 500 mg Tablet Discontinued 500 MG PO Daily 2021 11:00pm October 27, 2021 8:20am take 1 tablet by mouth every twe nty-four hours aspirin 81 mg delayed release oral tablet (12 sources) Platelet Aggregation Inhibitor, Nonsteroidal Anti-inflammatory Drug Start: 10-14-2021 End: 10-27-2021 take 81 mg by mouth once daily at bedtime Aspirin Discontinued 81 MG PO Daily at bedtime 2021 11:00pm October 27, 2021 8:20am cephalexin 500 mg oral capsule (20 sources) Cephalosporin Antibacterial Start: 10-14-2021 End: 10-27-2021 take 500 mg by mouth once daily at bedtime Cephalexin Discontinued 500 MG PO Daily at bedtime 2021 11:00pm October 27, 2021 8:20am empagliflozin 10 mg oral tablet (20 sources) Sodium-Glucose Cotransporter 2 Inhibitor take 10 mg by mouth once daily as needed JARDIANCE 10 mg daily orally Not-Taking/PRN Fluticasone Furoate-Vilanterol (11 sources) Corticosteroid, beta2-Adrenergic Agonist Start: 10-14-2021 End: 10-27-2021 Fluticasone Furoate-Vilantero l (Breo Ellipta) 200-25 mcg/dose Blister With Device Discontinued 1 INH INHALATION Every morning 2021 11:00pm October 27, 2021 8:20am Start: 10-14-2021 End: 10-27-2021 Fluticasone Furoate-Vilanter ol (Breo Ellipta) 200-25 mcg/dose Blister With Device Discontinued 1 INH INHALATION Every morning October 14, 2021 12:00am October 27, 2021 9:20am Start: 10-07-2020 take 1 puff(s) by mo ut once daily fluticasone furoate-vilanteroL (BREO ELLIPTA) 200-25 mcg/dose blister with device Inhale 1 puff once daily. Rinse mouth with water and spit after every dose. 60 each 11 10/07/2020 Active insulin aspart, human (20 sources) Insulin Analog Start: 10-14-2021 End: 10-27-2021 inject 1 dose by subcutaneous injection four times daily Insulin Aspart U-100 Discontinued 0 sliding scale dose SUBCUT Four times daily 2021 11:00pm October 27, 2021 8:20am Start: 10-14-2021 End: 10-27-2021 inject 1 dose by subcutaneous injection four times daily Insulin Aspart U-100 Discontinued 0 sliding scale dose SUBCUT Four times daily October 14, 2021 12:00am October 27, 2021 9:20am Start: 10-14-2021 inject 1 dose by sub cutaneous injection four times daily Insulin Aspart U-100 Active 0 sliding scale dose SUBCUT Four times daily October 14, 2021 12:00am Start: 07-07-2013 NovoLOG 100 UN IT/ML ISS #3 Subcutaneous ac meals TID for 90 days Jul, Active Start: 07-07-2013 NovoLOG 100 UN IT/ML ISS #3 Subcutaneous ac meals TID for 90 days Jul, Active Insulin Glargine (Lantus U-100 Insulin) 100 unit/mL solution (10 sources) Start: 10-14-2021 End: 10-27-2021 inject 40 [IU] by subcutaneous injection once daily at bedtime Insulin Glargine (Lantus U-100 Insulin) 100 unit/mL solution Discontinued 40 UNIT SUBCUT Daily at bedtime 2021 11:00pm October 27, 2021 8:20am Start: 10-14-2021 End: 10-27-2021 inject 40 [IU] by subcutaneous injection once daily at bedtime Insulin Glargine (Lantus U-100 Insulin) 100 unit/mL solution Discontinued 40 UNIT SUBCUT Daily at bedtime October 14, 2021 12:00am October 27, 2021 9:20am Start: 10-14-2021 inject 40 [IU] by castano bcutaneous injection once daily at bedtime Insulin Glargine (Lantus U-100 Insulin) 100 unit/mL solution Active 40 UNIT SUBCUT Daily at bedtime October 14, 2021 12:00am Lisinopril (20 sources) Angiotensin Converting Enzyme Inhibitor Prinivil Not-Taking/PRN Prinivil Not-Rodger ing Prinivil Active meloxicam 15 mg oral tablet (20 sources) Nonsteroidal Anti-inflammatory Drug take 1 tablet by mouth every twenty-four hours Meloxicam 15 MG 1 tablet Orally Once a day Not-Taking/PRN Multivitamin preparation (14 sources) Start: 2021 End: 2021 take 1 tablet by mouth once daily in the morning Multivitamin Discontinued 1 TAB PO Every morning 2021 11:00pm October 27, 2021 8:20am Start: 10-14-2021 End: 10-27-2021 take 1 tablet by mouth once daily in the morning Multivitamin Discontinued 1 TAB PO Every morning October 14, 2021 12:00am October 27, 2021 9:20am Start: 10-14-2021 take 1 tablet by michael th once daily in the morning Multivitamin Active 1 TAB PO Every morning October 14, 2021 12:00am take 1 tablet by michael th once daily Multivitamin - 1 tablet Orally Once a day Active Ondansetron (20 sources) Serotonin-3 Receptor Antagonist Zofran Not-Taking/PRN Zofran Not-Takin g Zofran Active prasugrel 10 mg oral tablet (20 sources) P2Y12 Platelet Inhibitor take 10 mg by mouth once daily as needed effient 10 mg once a day po Not-Taking/PRN rivaroxaban 10 mg oral tablet (20 sources) Factor Xa Inhibitor Start: 2 End: 2 take 1 tablet by mouth once daily Rivaroxaban (Xarelto) 10 mg Tablet Discontinued 10 MG PO Daily October 17, 2021 11:00pm October 27, 2021 8:20am ubidecarenone 200 mg oral capsule (13 sources) Start: 2 End: 07-28-202 2 Coenzyme Q10 Discontinued 200 MG PO Every morning 2021 11:00pm October 27, 2021 8:20am coenzyme Q10 100 mg capsule Take 2 capsules (200 mg total) by mouth in the morning. 0 Active Co Q 10 10 MG as directed Orally Active Problems Active Problems Problem Classification Problem Date Documented Da te Episodic/Chronic Acquired foot deformities (1 source) Other hammer toe(s) (acquired), right foot; Translations: [OTHER HAMMER TOES ACQUIRED RT FOOT] Onset: 06-15-2021 Chronic Acute and unspecified renal failure (17 sources) Renal failure syndrome; Translations: [Unspecified kidney failure] Onset: 10-21-2021 10-22-2021 Chronic Chronic kidney disease (19 sources) Chronic kidney disease, unspecified; Translations: [Chronic kidney disease stage 3] Onset: 04-22-2020 10-22-2021 Chronic Chronic kidney disease (2 sources) Chronic kidney disease; Translations: [CHRONIC KIDNEY DISEASE STAGE 3B] Onset: 03-02-2021 Chronic obstructive pulmonary disease and bronchiectasis (3 sources) Chronic obstructive pulmonary disease, unspecified; Translations: [Chronic obstructive lung disease] Onset: 04-22-2020 04-22-2020 Chronic Conduction disorders (5 sources) Presence of automatic (implantable) cardiac defibrillator; Translations: [Cardiac defibrillator in situ] Onset: 09-06-2015 04-12-2023 Chronic Congestive heart failure; nonhypertensive (5 sources) Chronic systolic (congestive) heart failure; Translations: [Chronic systolic heart failure] Onset: 01-22-2020 04-12-2023 Chronic Coronary atherosclerosis and other heart disease (10 sources) Old myocardial infarction; Translations: [Atherosclerotic heart disease of [place] coronary artery without angina pectoris] Onset: 11-23-2017 04-12-2023 Chronic Diabetes mellitus with complications (20 sources) 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; Translations: [Type 2 diabetes mellitus with diabetic neuropathic arthropathy] Onset: 01-10-2019 Resolved: 05-17-2020 Chronic Diabetes mellitus without complication (20 sources) Type 2 diabetes mellitus; Translations: [Type 2 diabetes mellitus without complications] Onset: 06-07-2021 10-19-2021 Chronic Diabetes mellitus without complication (4 sources) Hyperglycemia, unspecified; Translations: [HYPERGLYCEMIA UNSPECIFIED] Onset: 08-26-2021 Episodic Diseases of white blood cells (1 source) Elevated white blood cell count, unspecified; Translations: [ELEVATED WHITE BLOOD CELL COUNT UNS] Onset: 09-05-2021 Chronic Disorders of lipid metabolism (20 sources) Hyperlipidemia; Translations: [Hyperlipidemia, unspecified] Onset: 09-25-2018 10-22-2021 Chronic Diverticulosis and diverticulitis (2 sources) Diverticulosis of large intestine; Translations: [Diverticulosis of large intestine without perforation or abscess without bleeding] Onset: 04-07-2020 04-07-2020 Chronic Esophageal disorders (2 sources) Gastro-esophageal reflux disease with esophagitis; Translations: [Gastroesophageal reflux disease with esophagitis without hemorrhage] Onset: 04-22-2020 04-22-2020 Chronic Essential hypertension (20 sources) Essential (primary) hypertension; Translations: [Hypertensive disorder] Onset: 04-12-2015 10-22-2021 Chronic Genitourinary symptoms and ill-defined conditions (20 sources) Albuminuria ; Translations: [Proteinuria, unspecified] Episodic Hypertension with complications and secondary hypertension (2 sources) Hypertensive heart and chronic kidney disease with heart failure and stage 1 through stage 4 chronic kidney disease, or unspecified chronic kidney disease; Translations: [Hypertensive chronic kidney disease with stage 1 through stage 4 chronic kidney disease, or unspecified chronic kidney disease] Onset: 02-08-2021 Chronic Immunity disorders (2 sources) Sarcoidosis; Translations: [Sarcoidosis, unspecified] Onset: 12-21-2017 12-28-2021 Chronic Mood disorders (1 source) Major depressive disorder, single episode, unspecified; Translations: [DAYDAY DEPRESS D/O SINGLE EPIS UNS] Onset: 06-06-2021 Chronic Open wounds of extremities (20 sources) Amputated below knee; Translations: [Complete traumatic amputation at level between knee and ankle, unspecified lower leg, initial encounter] Onset: 10-18-2021 10-19-2021 Chronic Osteoarthritis (5 sources) Primary osteoarthritis, right ankle and foot; Translations: [PRIMARY OSTEOARTHRITIS RT ANK FOOT] Onset: 06-06-2021 Chronic Other acquired deformities (1 source) Contracture, right ankle; Translations: [CONTRACTURE RIGHT ANKLE] Onset: 06-06-2021 Chronic Other aftercare (20 sources) Long-term current use of insulin; Translations: [terminal gauger (current) use of insulin] Episodic Other and ill-defined heart disease (3 sources) Mural thrombus of heart; Translations: [Intracardiac thrombosis, not elsewhere classified] Onset: 11-23-2017 04-12-2023 Chronic Other and ill-defined heart disease (1 source) Intracardiac thrombosis, not elsewhere classified; Translations: [Intracardiac thrombosis, not elsewhere classified] Onset: 06-18-2020 Chronic Other bone disease and musculoskeletal deformities (9 sources) Absence of lower limb; Translations: [Acquired absence of right leg below knee] Chronic Other bone disease and musculoskeletal deformities (2 sources) Acquired absence of right leg below knee Chronic Other bone disease and musculoskeletal deformities (3 sources) History of amputation of left foot; Translations: [Acquired absence of left foot] Chronic Other bone disease and musculoskeletal deformities (3 sources) History of amputation of right leg through tibia and fibula; Translations: [Acquired absence of right leg below knee] Chronic Other bone disease and musculoskeletal deformities (1 source) Acquired absence of left foot Chronic Other circulatory disease (1 source) Other specified peripheral vascular diseases; Translations: [OTH SPEC PERIPHERAL VASC DISEASES] Onset: 06-15-2021 Chronic Other connective tissue disease (6 sources) Arthrodesis status; Translations: [ARTHRODESIS STATUS] Onset: 04-14-2021 Resolved: 10-12-2021 Episodic Other ear and sense organ disorders (2 sources) Hearing loss; Translations: [Unspecified hearing loss, unspecified ear] Onset: 01-28-2020 01-28-2020 Chronic Other ear and sense organ disorders (2 sources) Sensorineural hearing loss, bilateral; Translations: [Sensorineural hearing loss, bilateral] Onset: 01-04-2022 01-04-2022 Chronic Other nervous system disorders (4 sources) Polyneuropathy; Translations: [Polyneuropathy, unspecified] Chronic Other nervous system disorders (1 source) Polyneuropathy, unspecified Chronic Other non-traumatic joint disorders (5 sources) Charcot's joint, right ankle and foot; Translations: [CHARCOTS JOINT RIGHT ANKLE AND F] Onset: 02-09-2021 Chronic Other non-traumatic joint disorders (1 source) Other specified arthritis, unspecified site; Translations: [OTHER SPECIFIED ARTHRITIS UNS SITE] Onset: 02-23-2022 Chronic Other non-traumatic joint disorders (6 sources) Pain in right ankle and joints of right foot; Translations: [PAIN IN RIGHT ANKLE] Onset: 08-31-2021 Resolved: 10-12-2021 Episodic Other nutritional; endocrine; and metabolic disorders (2 sources) 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; Translations: [Hypercalcemia] Onset: 04-22-2020 04-22-2020 Chronic Gissell-; endo-; and myocarditis; cardiomyopathy (except that caused by tuberculosis or sexually transmitted disease) (1 source) Cardiomyopathy in diseases classified elsewhere; Translations: [CARDIOMYOPATHY DZ CLASSIFIED ELSW] Onset: 03-02-2021 Chronic Residual codes; unclassified (1 source) Sleep apnea, unspecified; Translations: [SLEEP APNEA UNSPECIFIED] Onset: 03-02-2021 Chronic Residual codes; unclassified (11 sources) Obstructive sleep apnea syndrome; Translations: [Obstructive sleep apnea (adult) (pediatric)] Onset: 03-30-2016 10-22-2021 Chronic Residual codes; unclassified (8 sources) Obstructive sleep apnea (adult) (pediatric); Translations: [Obstructive sleep apnea (adult)(pediatric)] Onset: 10-21-2021 10-27-2021 Chronic Residual codes; unclassified (1 source) Dependence on other enabling machines and devices; Translations: [Dependence on other enabling machines and devices] Onset: 10-21-2021 Chronic Residual codes; unclassified (1 source) Edema, unspecified; Translations: [EDEMA UNSPECIFIED] Onset: 09-05-2021 Episodic Skin and subcutaneous tissue infections (15 sources) Cutaneous abscess, unspecified; Translations: [Cellulitis of right lower limb] Onset: 05-16-2021 Episodic Spondylosis; intervertebral disc disorders; other back problems (1 source) Spondylosis without myelopathy or radiculopathy, site unspecified; Translations: [SPONDYLS W/O MYELO-/RADICULOP UNS] Onset: 02-08-2021 Chronic Spondylosis; intervertebral disc disorders; other back problems (6 sources) Neck pain; Translations: [Cervicalgia] Onset: 10-05-2022 Episodic Unclassified (4 sources) Pressure-induced deep tissue damage of unspecified site; Translations: [PRESS-INDUC DEEP TIS DAMG UNSP SITE] Onset: 02-17-2021 Unclassified (1 source) CONTACT W/AND (SUSP) EXPOS COVID-19; Translations: [CONTACT W/AND (SUSP) EXPOS COVID-19] Onset: 02-08-2021 Unclassified (1 source) LOW BACK PAIN, UNSPECIFIED; Translations: [LOW BACK PAIN, UNSPECIFIED] Onset: 02-08-2021 Unclassified (1 source) Other chronic osteomyelitis, right tibia and fibula; Translations: [Other chronic osteomyelitis, right tibia and fibula] Onset: 05-03-2022 Unclassified (1 source) Disruption of external operation (surgical) wound, not elsewhere classified, initial encounter; Translations: [Disruption of external operation (surgical) wound, not elsewhere classified, initial encounter] Onset: 11-29-2021 Unclassified (1 source) Dehiscence of amputation stump; Translations: [Dehiscence of amputation stump] Onset: 11-03-2021 Unclassified (1 source) Encounter for preprocedural laboratory examination; Translations: [Encounter for preprocedural laboratory examination] Onset: 11-02-2021 Unclassified (1 source) Other acute osteomyelitis, right ankle and foot; Translations: [Other acute osteomyelitis, right ankle and foot] Onset: 10-21-2021 Unclassified (1 source) Pre-op Exam Onset: 04-12-2023 Past or Other Problems Problem Classification Problem Date Documented Date Episodic/Chronic Acquired foot deformities (1 source) Varus deformity, not elsewhere classified, right ankle; Translations: [VARUS DEFORMITY NEC RIGHT ANKLE] Onset: 06-06-2021 Episodic Acute myocardial infarction (5 sources) Acute myocardial infarction, unspecified; Translations: [Acute ST segment elevation myocardial infarction involving left anterior descending coronary artery] Onset: 04-02-2014 Resolved: 12-29-2021 12-28-2021 Chronic Administrative/social admission (17 sources) Other reduced mobility; Translations: [Impaired mobility and activities of daily living] Onset: 10-21-2021 10-22-2021 Episodic Bacterial infection; unspecified site (1 source) Personal history of Methicillin resistant Staphylococcus aureus infection; Translations: [PERS HX METHICILLIN RSIST STAPH INF] Onset: 03-02-2021 Episodic Chronic ulcer of skin (17 sources) Non-pressure 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 with fat layer exposed; Translations: [Pressure ulcer of right ankle, stage 1] Onset: 09-10-2019 Resolved: 10-29-2019 Chronic Complication of device; implant or graft (1 source) Other specified complication of internal orthopedic prosthetic devices, implants and grafts, initial encounter; Translations: [OTH COMP INTRL ORTHO PROS DEVC INIT] Onset: 03-02-2021 Episodic Complications of surgical procedures or medical care (20 sources) Other complications of procedures, not elsewhere classified, sequela; Translations: [Other complications of procedures, not elsewhere classified, subsequent encounter] Onset: 02-08-2021 Resolved: 12-14-2021 Episodic Esophageal disorders (2 sources) Esophageal mass; 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] Onset: 05-19-2020 05-19-2020 Episodic Infective arthritis and osteomyelitis (except that caused by tuberculosis or sexually transmitted disease) (20 sources) Osteomyelitis; Translations: [Osteomyelitis, unspecified] Onset: 01-10-2019 Resolved: 07-13-2022 Chronic Mood disorders (2 sources) Mood disorders Onset: 03-22-2023 03-22-2023 Mycoses (5 sources) Tinea unguium; Translations: [TINEA UNGUIUM] Onset: 05-03-2021 Episodic Open wounds of extremities (1 source) Unspecified open wound, right ankle, initial encounter; Translations: [UNS OPEN WOUND RIGHT ANKLE INITIAL] Onset: 01-18-2021 Episodic Other aftercare (1 source) 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; Translations: [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 CURRENT USE OF ASPIRIN] Onset: 03-02-2021 Episodic Other aftercare (1 source) alf (current) use of insulin; Translations: [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 CURRENT USE OF INSULIN] Onset: 03-02-2021 Episodic Other aftercare (1 source) Other assisted (current) drug therapy; Translations: [OTH 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 CURRENT DRUG THERAPY] Onset: 03-02-2021 Episodic Other aftercare (4 sources) Encounter for change or removal of nonsurgical wound dressing; Translations: [ENC CHG/REMOVAL NONSURG WOUND DRSG] Onset: 12-03-2020 Episodic Other aftercare (1 source) Encounter for removal of sutures Onset: 11-28-2021 Resolved: 11-28-2021 Episodic Other and unspecified benign neoplasm (2 sources) History of polyp of colon; Translations: [Personal history of colonic polyps] Onset: 03-19-2020 03-19-2020 Episodic Other and unspecified benign neoplasm (2 sources) Polyp of colon; Translations: [Polyp of colon] Onset: 04-07-2020 04-07-2020 Episodic Other connective tissue disease (5 sources) Pain in right foot; Translations: [PAIN IN RIGHT FOOT] Onset: 01-20-2021 Episodic Other connective tissue disease (1 source) Pain in right leg; Translations: [PAIN IN RIGHT LEG] Onset: 03-16-2021 Episodic Other ear and sense organ disorders (2 sources) Eczema of external auditory canal; Translations: [Acute eczematoid otitis externa, bilateral] Onset: 01-28-2020 Resolved: 12-28-2021 12-28-2021 Episodic Other ear and sense organ disorders (2 sources) Wax in ear canal; Translations: [Impacted cerumen, left ear] Onset: 01-28-2020 Resolved: 12-28-2021 12-28-2021 Episodic Other ear and sense organ disorders (2 sources) Lesion of external ear; Translations: [Disorder of left external ear, unspecified] Onset: 03-10-2020 Resolved: 12-28-2021 12-28-2021 Episodic Other skin disorders (1 source) Nail dystrophy; Translations: [NAIL DYSTROPHY] Onset: 06-15-2021 Episodic Residual codes; unclassified (15 sources) Other specified postprocedural states; Translations: [Other specified postprocedural states] Onset: 10-31-2021 Resolved: 12-14-2021 Episodic Residual codes; unclassified (1 source) Acquired absence of other specified parts of digestive tract; Translations: [ACQ ABSENCE OTH PART DIGESTV TRACT] Onset: 03-02-2021 Episodic Residual codes; unclassified (1 source) Other specified health status; Translations: [Other specified health status] Onset: 10-21-2021 Episodic Superficial injury; contusion (2 sources) Abrasion, right lower leg, initial encounter; Translations: [Blister (nonthermal), right foot, initial encounter] Onset: 02-04-2021 Episodic Results Test Name Value Interpretation Reference [facility] MR ANKLE LT W WO CONTon -0 MR ANKLE LT W WO CONT MR ANKLE LT W WO C ONT History: Skin ulcer with necrosis of muscle. Prior amputations. Diabetes. MRI Left Ankle Comparison: None Technique: Multiplanar multisequence imaging of the ankle was obtained with without contrast. Patient received ProHance. Findings: Abnormal signal is appreciated the lateral malleolus. There is an adjacent soft tissue wound. Following contrast administration enhancement in the lateral malleolus is appreciated. This is compatible with osteomyelitis. There is abnormal signal along the peroneal tendons however no convincing evidence of septic tenosynovitis. No disruption of the tendons is noted. The wound is adjacent to the attachment of the retinaculum. Marrow signal the distal tibia is satisfactory. No tendon rupture, high-grade tendinopathy or tenosynovitis is observed. 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 The remaining tarsal bones have appropriate marrow signal. . No evidence of bursitis. Impression: * Findings compatible with osteomyelitis involving the lateral malleolus. Adjacent wound is noted. Please see the above discussion. Surgical follow-up is required. Finalized by Mai Bennett MD on 04/05/2023 8:50 AM Normal [facility] XR cervical spine 2Von 10-05 XR cervical spine 2V [facility] [address] [place] [address] XRay Report Signed Patient: Anai Goodman MR#: [id number] : 1955 Acct:[id number] Age/Sex: 66 / M ADM Date: 10/05/22 Loc: D Room: Type: [facility] Attending Dr: Dung Serna MD Copies to: Dung Serna MD Ordering Provider: Dung Serna MD Date of Service: 10/05/22 XR/XR cervical spine 2V: M54.2 Lateral neutral, flexion and extension views of thecervical spine HISTORY: Bilateral hand pain for 6 months. COMPARISON: None POSTOPERATIVE CHANGES: None BONY ALIGNMENT: Minor C6-7 anterolisthesis. No hypermobility. FRACTURE: None DISC DEGENERATION: C6-7 and C7-T1 advanced spondylosis identified. Minor remaining cervical spondylosis present. FACETS: Multilevel facet degeneration. FORAMEN: Unremarkable DENS: Intact CRANIOCERVICAL JUNCTION: Unremarkable SOFT TISSUES: Unremarkable XR/XR cervical spine 2V IMPRESSION: No hypermobility. Minor C6-7 anterolisthesis. Extensive C6-7 and C7-T1 spondylosis and multilevel facet degeneration. Impression dictated by: Jose Sanabria M.D.10/05/2022 12:36 PM Dictation Location: [place] [address] Transcribed By: [facility] 10/05/22 1236 Dictated By: Jose Sanabria DO 10/05/22 1233 Signed By: 10/05/[address] [facility] Basic Metabolic Panelon 3 Anion gap [Moles/Vol] 12.0 mmol/L Normal 6.0-15.0 [facility] Comment on above: Performed By: #### C BC, BMP #### [facility] [address] Calcium [Mass/Vol] 10.0 mg/dL Normal 8.2-10.2 [facility] Comment on above: Performed By: #### C BC, BMP #### [facility] [address] [place] [address] [place] Chloride [Moles/Vol] 100 mmol/L Normal 95-114 [facility] Comment on above: Performed By: #### C BC, BMP #### [facility] [address] CO2 [Moles/Vol] 30.0 mmol/L Normal 22.0-30.0 [facility] Comment on above: Performed By: #### C BC, BMP #### [facility] [address] [place] [address] [place] Creatinine [Mass/Vol] 1.38 mg/dL High 0.64-1.[address] [facility] Comment on above: Performed By: #### C BC, BMP #### [facility] [address] [place] [address] [place] Creatinine Clr Calc Pharmacy 66.[address] [facility] Comment on above: Result Comment: PERF ORMED BY: [place] [address] PATHOLOGIST [employer] STATISTICAL PROGRAMMER SESAR YOST M.D. Performed By: #### C BC, BMP #### [address] Estimated GFR ( Christal > [address] [facility] Comment on above: Result Comment: GFR estimated reference range: According to KDOQI guidelines, <60 ml/min/1.73m2 is sufficient to diagnose a patient with chronic kidney disease. Performed By: #### C BC, BMP #### [address] Estimated GFR (Non- Am [address] [facility] Comment on above: Performed By: #### C BC, BMP #### [address] Glucose [Mass/Vol] 130 mg/dL High 70-100 [facility] Comment on above: Result Comment: [place] Glucose Reference Range is dependent on time and content of last meal. Glucose of more than 200 mg/dL in a nonstressed, ambulatory subject supports the diagnosis of Diabetes Mellitus. ADA recommended reference range Performed By: #### C BC, BMP #### [address] Potassium [Moles/Vol] 4.0 mmol/L Normal 3.5-5.[address] [facility] Comment on above: Performed By: #### C BC, BMP #### [address] Sodium [Moles/Vol] 138 mmol/L Normal 136-146 [facility] Comment on above: Performed By: #### C BC, BMP #### [address] Urea nitrogen [Mass/Vol] 22 mg/dL Normal 9-[address] [facility] Comment on above: Performed By: #### C BC, BMP #### [address] Basophils Auto (Bld) [#/Vol] Ordered By: Spenser Elaine on 11-29-2021 Basophils (Bld) [#/Vol] 0.0 10*3/uL 0.0-0.[address] [facility] Basophils/100 WBC Auto (Bld) Ordered By: Spenser Elaine on 11-29-2021 Basophils/100 WBC (Bld) 0.5 % . [facility] Blood hemoglobin measurement (mass/volume)Ordered By: Spenser Elaine on 11-29-2021 Hemoglobin (Bld) [Mass/Vol] 12.6 g/dL 13.0-17.[address] [facility] Blood leukocytes automated c ount (number/volume)Ordered By: Spenser Elaine on 11-29-2021 WBC (Bld) [#/Vol] 6.8 10*3/uL 4.5-11.0 [facility] COVID CepheidOrdered By: Junior Cortes on 11-29-2021 SARS-CoV-2 (COVID-19) Ab IA Ql Negative Negative [facility] Comment on above: This is a duplicate Cepheid Xpert Xpress CoV-2/Flu/RSV Plus RNA by RT-PCR result to be used for statistical tracking purpose only. SARS-CoV-2 (COVID-19) RNA MEREDITH+probe Ql (Unsp spec) [facility] COVID-19 / Flu A/B / RSV PCR on 11-29-2021 SARS-CoV-2 (COVID-19) RNA MEREDITH+probe Ql (Unsp spec) COVID-19 Cepheid Result Negative for SARS-CoV-2 RNA by RT-PCR Flu A Cepheid Result Negative for Flu A RNA by RT-PCR Flu B Cepheid Result Negative for Flu B RNA by RT-PCR RSV Cepheid Result Negative for RSV RNA by RT-PCR COVID19 Blank Space Reference: Negative COVID19 Blank Space Cepheid Disclaimer The Cepheid Xpert Xpress CoV-2/Flu/RSV Plus has Cepheid Disclaimer not been FDA cleared or approved; this test has Cepheid Disclaimer been authorized by FDA under an EUA for use by Cepheid Disclaimer authorized laboratories; this test has been Cepheid Disclaimer authorized only for the simultaneous qualitative Cepheid Disclaimer detection and differentiation of nucleic acids from Cepheid Disclaimer SARS-CoV-2, influenza A, influenza B, and Cepheid Disclaimer respiratory syncytial virus (RSV), and not for any Cepheid Disclaimer other viruses or pathogens; and this test is only Cepheid Disclaimer authorized for the duration of the declaration that Cepheid Disclaimer circumstances exist justifying the authorization of Cepheid Disclaimer emergency use of in vitro diagnostic tests for Cepheid Disclaimer detection and/or diagnosis of COVID-19 under Cepheid Disclaimer Section 564(b)(1) of the Act, 21 U.S.C. 360bbb- Cepheid Disclaimer 3(b)(1), unless the authorization is terminated or Cepheid Disclaimer revoked sooner. PERFORMED BY: [place] [address] PATHOLOGIST [employer] STATISTICAL PROGRAMMER SESAR YOST M.D. Normal [facility] Comment on above: Performed By: #### C OVID19 FLU RSV, CEPHEID NEG #### [facility] [address] [place], [place] [id number] [facility] Cepheid COVID PCR Negativeon 11-29-2021 SARS-CoV-2 (COVID-19) RNA MEREDITH+probe Ql (Unsp spec) Negative Normal Negative [facility] Comment on above: Result Comment: This is a duplicate Cepheid Xpert Xpress CoV-2/Flu/RSV Plus RNA by RT-PCR result to be used for statistical tracking purpose only. PERFORMED BY: [place] [address] PATHOLOGIST [employer] STATISTICAL PROGRAMMER SESAR YOST M.D. Performed By: #### C OVID19 FLU RSV, CEPHEID NEG #### [place] [id number] [facility] Complete Blood Count Auto Di ffon 11-29-2021 Basophils (Bld) [#/Vol] 0.0 10*3/uL Normal 0.0-0.[address] [facility] Comment on above: Result Comment: PERF ORMED BY: [place] [address] PATHOLOGIST [employer] STATISTICAL PROGRAMMER SESAR YOST M.D. Performed By: #### C BC, BMP #### [facility] [address] Basophils/100 WBC (Bld) 0.5 % Normal . [facility] Comment on above: Performed By: #### C BC, BMP #### [facility] [address] [place] [address] [place] Eosinophils (Bld) [#/Vol] 0.5 10*3/uL High 0.0-0.[address] [facility] Comment on above: Performed By: #### C BC, BMP #### [address] Eosinophils/100 WBC (Bld) 7.5 % Normal . [facility] Comment on above: Performed By: #### C BC, BMP #### [address] Erythrocyte distribution width (RBC) [Ratio] 15.7 % High 12.0-14.[address] [facility] Comment on above: Performed By: #### C BC, BMP #### [address] Hematocrit (Bld) [Volume fraction] 38.3 % Low 38.8-50.[address] [facility] Comment on above: Performed By: #### C BC, BMP #### [facility] [address] [place] [address] [place] Hemoglobin (Bld) [Mass/Vol] 12.6 g/dL Low 13.0-17.[address] [facility] Comment on above: Performed By: #### C BC, BMP #### [address] Lymphocytes (Bld) [#/Vol] 0.6 10*3/uL Low 1.00-4.[address] [facility] Comment on above: Performed By: #### C BC, BMP #### [facility] [address] [place] [address] [place] Lymphocytes/100 WBC (Bld) 9.0 % Normal . [facility] Comment on above: Performed By: #### C BC, BMP #### [facility] [address] [place] [id number] [facility] MCH (RBC) [Entitic mass] 27.6 pg Normal 27.5-35.[address] [facility] Comment on above: Performed By: #### C BC, BMP #### [facility] [address] MCV (RBC) [Entitic vol] 84.3 fL Normal 83.5-101 [facility] Comment on above: Performed By: #### C BC, BMP #### [facility] [address] Mean Corpuscular HGB Conc 32.8 g/dL Normal 32.5-35.[address] [facility] Comment on above: Performed By: #### C BC, BMP #### [facility] [address] [place] [address] [place] Monocytes (Bld) [#/Vol] 0.7 10*3/uL Normal 0.0-0.[address] [facility] Comment on above: Performed By: #### C BC, BMP #### [facility] [address] [place] [address] [place] Monocytes/100 WBC (Bld) 10.9 % Normal . [facility] Comment on above: Performed By: #### C BC, BMP #### [facility] [address] [place] [id number] [place] Neutrophils (Bld) [#/Vol] 4.9 10*3/uL Normal 1.8-7.[address] [facility] Comment on above: Performed By: #### C BC, BMP #### [facility] [address] [place] [id number] [place] Neutrophils/100 WBC (Bld) 72.1 % Normal . [facility] Comment on above: Performed By: #### C BC, BMP #### [facility] [address] [place] [address] [place] Nucleated RBC/100 WBC (Bld) [Ratio] 0.0 % Normal 0-0.[address] [facility] Comment on above: Performed By: #### C BC, BMP #### [facility] [address] Platelet mean volume (Bld) [Entitic vol] 9.3 fL Normal 6.6-10.[address] [facility] Comment on above: Performed By: #### C BC, BMP #### [facility] [address] [place] [address] [place] Platelets (Bld) [#/Vol] 142 10*3/uL Low 150-[address] [facility] Comment on above: Performed By: #### C BC, BMP #### [facility] [address] RBC (Bld) [#/Vol] 4.54 10*6/uL Normal 3.90-5.60 [facility] Comment on above: Performed By: #### C BC, BMP #### [facility] [address] [place] [address] [place] WBC (Bld) [#/Vol] 6.8 10*3/uL Normal 4.5-11.0 [facility] Comment on above: Performed By: #### C BC, BMP #### [address] Creatinine and Glomerular fi ltration rate.predicted panel (S/P/Bld)Ordered By: Spenser Elaine on 11-29-2021 Creatinine [Mass/Vol] 1.38 mg/dL 0.64-1.[address] [facility] ECG 12 lead ECGon 11-29-2021 ECG 12 lead ECG [facility] [address] [place] [address] Electrocardiograph Report Signed Patient: Anai Goodman MR#: [id number] : 1955 Acct:[id number] Age/Sex: 66 / M ADM Date: 11/29/21 Loc: Room: 1Z0331-4 Type: DIS IN Attending Dr: Reddy Brandt DO Ordering Provider: Spenser Elaine MD Date of Service: 11/29/21 ECG/ECG 12 lead ECG: preop Copies to: Test Reason : Blood Pressure : / mmHG Vent. Rate : 075 BPM Atrial Rate : 075 BPM P-R Int : 144 ms QRS Dur : 136 ms QT Int : 436 ms P-R-T Axes : 074 270 120 degrees QTc Int : 486 ms Sinus rhythm with occasional premature ventricular complexes Right bundle branch block Left anterior fascicular block Bifascicular block Septal infarct , age undetermined Abnormal ECG When compared with ECG of 10-OCT-2010 11:14, premature ventricular complexes are now present Left anterior fascicular block is now present Septal infarct is now present Confirmed by JOSE OVALLE DO ([id number]) on 11/29/2021 4:28:53 PM Referred By: Electronically Signed By:JOSE OVALLE DO Transcribed By: MUS Signed By Jose Ovalle DO 11/29 [address] [facility] Eosinophils Auto (Bld) [#/Vo l]Ordered By: Spenser Elaine on 11-29-2021 Eosinophils (Bld) [#/Vol] 0.5 10*3/uL 0.0-0.[address] [facility] Eosinophils/100 WBC Auto (Bl d)Ordered By: Spenser Elaine on 11-29-2021 Eosinophils/100 WBC (Bld) 7.5 % . [facility] Erythrocyte distribution wid th Auto (RBC) [Ratio]Ordered By: Spenser Elaine on 11-29-2021 Erythrocyte distribution width (RBC) [Ratio] 15.7 % 12.0-14.[address] [facility] Estimated glomerular filtrat ion rate (GFR) non- AmericanOrdered By: Spenser Elaine on 11-29-2021 GFR/1.73 sq M.predicted among non-blacks MDRD (S/P/Bld) [Vol rate/Area] 52 mL/Min [facility] Glucose Glucometer (BldC) [M ass/Vol]Ordered By: Reddy Brandt on 11-29-2021 Glucose [Mass/Vol] 141 mg/dL [facility] Comment on above: Random Glucose Refer ence Range is dependent on time and content of last meal. Glucose of more than 200 mg/dL in a nonstressed, ambulatory subject supports the diagnosis of Diabetes Mellitus. Glucose Poct Glucometerson 0 11-29-2021 Commemt1 Glu2: Cleaned Meter Normal [facility] Comment on above: Result Comment: PERF ORMED BY: [place] [address] PATHOLOGIST [employer] STATISTICAL PROGRAMMER SESAR YOST M.D. Performed By: #### C OVID19 FLU RSV, CEPHEID NEG #### [facility] [address] Glucose [Mass/Vol] 141 mg/dL Normal [facility] Comment on above: Result Comment: [place] om Glucose Reference Range is dependent on time and content of last meal. Glucose of more than 200 mg/dL in a nonstressed, ambulatory subject supports the diagnosis of Diabetes Mellitus. Performed By: #### C OVID19 FLU RSV, CEPHEID NEG #### [facility] [address] Hematocrit Auto (Bld) [Volum e fraction]Ordered By: Spenser Elaine on 11-29-2021 Hematocrit (Bld) [Volume fraction] 38.3 % 38.8-50.[address] [facility] Laboratory - Hematology and Cell countsOrdered By: Spenser Elaine on 11-29-2021 Nucleated RBC/100 WBC (Bld) [Ratio] 0.0 % 0-0.[address] [facility] - Microbiology an d Antimicrobial susceptibilityOrdered By: César Cortes on 11-29-2021 SARS-CoV-2 (COVID-19) RNA MEREDITH+probe Ql (Unsp spec) N/A [facility] Lymphocytes Auto (Bld) [#/Vo l]Ordered By: Spenser Elaine on 11-29-2021 Lymphocytes (Bld) [#/Vol] 0.6 10*3/uL 1.00-4.[address] [facility] Lymphocytes/100 WBC Auto (Bl d)Ordered By: Spenser Elaine on 11-29-2021 Lymphocytes/100 WBC (Bld) 9.0 % . [facility] MCH Auto (RBC) [Entitic mass ]Ordered By: Spenser Elaine on 11-29-2021 MCH (RBC) [Entitic mass] 27.6 pg 27.5-35.[address] [facility] MCHC Auto (RBC) [Mass/Vol]Or dered By: Spenser Elaine on 11-29-2021 MCHC (RBC) [Mass/Vol] 32.8 g/dL 32.5-35.6 [facility] MCV Auto (RBC) [Entitic vol] Ordered By: Spenser Elaine on 11-29-2021 MCV (RBC) [Entitic vol] 84.3 fL 83.5-101 [facility] Monocytes Auto (Bld) [#/Vol] Ordered By: Spenser Elaine on 11-29-2021 Monocytes (Bld) [#/Vol] 0.7 10*3/uL 0.0-0.[address] [facility] Monocytes/100 WBC Auto (Bld) Ordered By: Spenser Elaine on 11-29-2021 Monocytes/100 WBC (Bld) 10.9 % . [facility] Neutrophils Auto (Bld) [#/Vo l]Ordered By: Spenser Elaine on 11-29-2021 Neutrophils (Bld) [#/Vol] 4.9 10*3/uL 1.8-7.[address] [facility] Neutrophils/100 WBC Auto (Bl d)Ordered By: Spenser Elaine on 11-29-2021 Neutrophils/100 WBC (Bld) 72.1 % . [facility] No Panel InformationOrdered By: Reddy Brandt on 11-29-2021 Bedside Glucose Comment Glu2: cleaned meter [facility] No Panel InformationOrdered By: Spenser Elaine on 11-29-2021 Estimated GFR () > 60 mL/Min [facility] Comment on above: GFR estimated refere nce range: According to KDOQI guidelines, <60 ml/min/1.73m2 is sufficient to diagnose a patient with chronic kidney disease. Pharmacy Creatinine Clearance (Chem 66.[address] [facility] Platelet mean volume Auto (B ld) [Entitic vol]Ordered By: Spenser Elaine on 11-29-2021 Platelet mean volume (Bld) [Entitic vol] 9.3 fL 6.6-10.[address] [facility] Platelets Auto (Bld) [#/Vol] Ordered By: Spenser Elaine on 11-29-2021 Platelets (Bld) [#/Vol] 142 10*3/uL 150-[address] [facility] RBC Auto (Bld) [#/Vol]Ordere d By: Spenser Elaine on 11-29-2021 RBC (Bld) [#/Vol] 4.54 10*6/uL 3.90-5.60 [facility] Serum or plasma anion gap de terminationOrdered By: Spenser Elaine on 11-29-2021 Anion gap [Moles/Vol] 12.0 mmol/L 6.0-15.0 [facility] Serum or plasma calcium sergei urement (mass/volume)Ordered By: Spenser Elaine on 11-29-2021 Calcium [Mass/Vol] 10.0 mg/dL 8.2-10.2 [facility] Serum or plasma chloride zofia surement (moles/volume)Ordered By: Spenser Elaine on 11-29-2021 Chloride [Moles/Vol] 100 mmol/L 95-114 [facility] Serum or plasma glucose sergei urement (mass/volume)Ordered By: Spenser Elaine on 11-29-2021 Glucose [Mass/Vol] 130 mg/dL 70-100 [facility] Comment on above: ADA recommended refe rence range Random Glucose Reference Range is dependent on time and content of last meal. Glucose of more than 200 mg/dL in a nonstressed, ambulatory subject supports the diagnosis of Diabetes Mellitus. ADA recommended refe rence rangeRandom Glucose Reference Range is dependent on time and content of last meal. Glucose of more than 200 mg/dL in a nonstressed, ambulatory subject supports the diagnosis of Diabetes Mellitus. Serum or plasma potassium me asurement (moles/volume)Ordered By: Spenser Elaine on 11-29-2021 Potassium [Moles/Vol] 4.0 mmol/L 3.5-5.[address] [facility] Serum or plasma sodium measu rement (moles/volume)Ordered By: Spenser Elaine on 11-29-2021 Sodium [Moles/Vol] 138 mmol/L 136-146 [facility] Serum or plasma total carbon dioxide measurement (moles/volume)Ordered By: Spenser Elaine on 11-29-2021 CO2 [Moles/Vol] 30.0 mmol/L 22.0-30.0 [facility] Serum or plasma urea nitroge n measurement (mass/volume)Ordered By: Spenser Elaine on 11-29-2021 Urea nitrogen [Mass/Vol] 22 mg/dL 12-[address] [facility] Glucose Glucometer (BldC) [M ass/Vol]Ordered By: Reddy Brandt on 11-03-2021 Glucose [Mass/Vol] 174 mg/dL [facility] Comment on above: Random Glucose Refer ence Range is dependent on time and content of last meal. Glucose of more than 200 mg/dL in a nonstressed, ambulatory subject supports the diagnosis of Diabetes Mellitus. Glucose Poct Glucometerson 0 11-03-2021 Commemt1 Glu2: Cleaned Meter Normal [facility] Comment on above: Result Comment: PERF ORMED BY: [facility] [address] [place] [address] PATHOLOGIST [employer] STATISTICAL PROGRAMMER SESAR YOST M.D. Performed By: #### G LULS ####Point of Care testing, Glucose [Mass/Vol] 174 mg/dL Normal [facility] Comment on above: Result Comment: [place] Glucose Reference Range is dependent on time and content of last meal. Glucose of more than 200 mg/dL in a nonstressed, ambulatory subject supports the diagnosis of Diabetes Mellitus. Performed By: #### G LULS ####Point of Care testing, No Panel InformationOrdered By: Reddy Brandt on 11-03-2021 Bedside Glucose Comment Glu2: cleaned meter [facility] COVID-19 FRMCon 11-02-2021 SARS-CoV-2 (COVID-19) RNA MEREDITH+probe Ql (Unsp spec) Negative Normal Negative [facility] Comment on above: Order Comment: Healt hcare Worker?: N Result Comment: Testing for SARS-CoV-2 by RT-PCR This test was developed and its performance characteristics determined by [employer] ([place]) and validated at the [facility]. This test has not been FDA cleared or approved. This test has been authorized by FDA under an Emergency Use Authorization (EUA). This test has been validated in accordance with the FDA's Guidance Document (Policy for Diagnostics Testing in Laboratories Certified to Perform High Complexity Testing under CLIA prior to Emergency Use Authorization for Coronavirus Disease-2019 during the Public Health Emergency) issued on July 03, 2019. This test is only authorized for the duration of time the declaration that circumstances exist justifying the authorization of the emergency use of in vitro diagnostic tests for detection of SARS-CoV-2 virus and/or diagnosis of COVID-19 infection under section 564(b)(1) of the Act, 21 U.S.C. 360bbb-3(b)(1), unless the authorization is terminated or revoked sooner. PERFORMED BY: [place] [address] PATHOLOGIST [employer] STATISTICAL PROGRAMMER SESAR YOST M.D. Performed By: #### C OVID19 FLU RSV, CEPHEID NEG #### [address] COVID-19 Positive/NegativeOr dered By: Reddy Brandt on 11-02-2021 SARS-CoV-2 (COVID-19) N gene MEREDITH+probe Ql (Resp) Negative Negative [facility] Comment on above: Testing for SARS-CoV -2 by RT-PCR This test was developed and its performance characteristics determined by [employer] ([place]) and validated at the [facility]. This test has not been FDA cleared or approved. This test has been authorized by FDA under an Emergency Use Authorization (EUA). This test has been validated in accordance with the FDA's Guidance Document (Policy for Diagnostics Testing in Laboratories Certified to Perform High Complexity Testing under CLIA prior to Emergency Use Authorization for Coronavirus Disease-2019 during the Public Health Emergency) issued on July 03, 2019. This test is only authorized for the duration of time the declaration that circumstances exist justifying the authorization of the emergency use of in vitro diagnostic tests for detection of SARS-CoV-2 virus and/or diagnosis of COVID-19 infection under section 564(b)(1) of the Act, 21 U.S.C. 360bbb-3(b)(1), unless the authorization is terminated or revoked sooner. Testing for SARS-CoV -2 by RT-PCRThis test was developed and its performance characteristics determined by [employer] ([place]) and validated at the [facility]. This test has not been FDA cleared or approved. This test has been authorized by FDA under an Emergency Use Authorization (EUA). This test has been validated in accordance with the FDA's Guidance Document (Policy for Diagnostics Testing in Laboratories Certified to Perform High Complexity Testing under CLIA prior to Emergency Use Authorization for Coronavirus Disease-2019 during the Public Health Emergency) issued on July 03, 2019. This test is only authorized for the duration of time the declaration that circumstances exist justifying the authorization of the emergency use of in vitro diagnostic tests for detection of SARS-CoV-2 virus and/or diagnosis of COVID-19 infection under section 564(b)(1) of the Act, 21 U.S.C. 360bbb-3(b)(1), unless the authorization is terminated or revoked sooner. Glucose Glucometer (BldC) [M ass/Vol]Ordered By: Ghanshyam Kaye on 10-27-2021 Glucose [Mass/Vol] 166 mg/dL [facility] Comment on above: Random Glucose Refer ence Range is dependent on time and content of last meal. Glucose of more than 200 mg/dL in a nonstressed, ambulatory subject supports the diagnosis of Diabetes Mellitus. Glucose Poct Glucometerson 0 10-27-2021 Commemt1 Glu2: Cleaned Meter [facility] Comment on above: Result Comment: PERF ORMED BY: [facility] [address] [place] [address] PATHOLOGIST [employer] STATISTICAL PROGRAMMER SESAR YOST M.D. Performed By: #### G LULS ####Point of Care testing, Glucose [Mass/Vol] 166 mg/dL Normal [facility] Comment on above: Result Comment: [facility] Glucose Reference Range is dependent on time and content of last meal. Glucose of more than 200 mg/dL in a nonstressed, ambulatory subject supports the diagnosis of Diabetes Mellitus. Performed By: #### G LULS ####Point of Care testing, Commemt1 Glu2: Cleaned Meter [facility] Comment on above: Result Comment: PERF ORMED BY: [address] [place] [address] PATHOLOGIST [employer] STATISTICAL PROGRAMMER SESAR YOST M.D. Performed By: #### G LULS ####Point of Care testing, Glucose [Mass/Vol] 103 mg/dL Normal [facility] Comment on above: Result Comment: [place] om Glucose Reference Range is dependent on time and content of last meal. Glucose of more than 200 mg/dL in a nonstressed, ambulatory subject supports the diagnosis of Diabetes Mellitus. Performed By: #### G LULS ####Point of Care testing, No Panel InformationOrdered By: Ghanshyam Kaye on 10-27-2021 Bedside Glucose Comment Glu2: cleaned meter [facility] Glucose Poct Glucometerson 0 10-26-2021 Glucose [Mass/Vol] 257 mg/dL Normal [facility] Comment on above: Result Comment: [place] om Glucose Reference Range is dependent on time and content of last meal. Glucose of more than 200 mg/dL in a nonstressed, ambulatory subject supports the diagnosis of Diabetes Mellitus. PERFORMED BY: [place] [address] PATHOLOGIST [employer] STATISTICAL PROGRAMMER SESAR YOST M.D. Performed By: #### G LULS ####Point of Care testing, Commemt1 Glu2: Cleaned Meter [facility] Comment on above: Result Comment: PERF ORMED BY: [place] [address] PATHOLOGIST [employer] STATISTICAL PROGRAMMER SESAR YOST M.D. Performed By: #### A ERC #### [address] Glucose [Mass/Vol] 197 mg/dL Normal [facility] Comment on above: Result Comment: [place] om Glucose Reference Range is dependent on time and content of last meal. Glucose of more than 200 mg/dL in a nonstressed, ambulatory subject supports the diagnosis of Diabetes Mellitus. Performed By: #### A ERC #### [place] [address] [place] Commemt1 Glu2: Cleaned Meter Normal [facility] Comment on above: Result Comment: PERF ORMED BY: [place] [address] PATHOLOGIST [employer] STATISTICAL PROGRAMMER SESAR YOST M.D. Performed By: #### C OVID19 FLU RSV, CEPHEID NEG #### [facility] [address] Glucose [Mass/Vol] 144 mg/dL Normal [facility] Comment on above: Result Comment: [place] om Glucose Reference Range is dependent on time and content of last meal. Glucose of more than 200 mg/dL in a nonstressed, ambulatory subject supports the diagnosis of Diabetes Mellitus. Performed By: #### C OVID19 FLU RSV, CEPHEID NEG #### [address] Commemt1 Glu2: Cleaned Meter Normal [facility] Comment on above: Result Comment: PERF ORMED BY: [place] [address] PATHOLOGIST [employer] STATISTICAL PROGRAMMER SESAR YOST M.D. Performed By: #### C OVID19 FLU RSV, CEPHEID NEG #### [address] Glucose [Mass/Vol] 102 mg/dL Normal [facility] Comment on above: Result Comment: [place] om Glucose Reference Range is dependent on time and content of last meal. Glucose of more than 200 mg/dL in a nonstressed, ambulatory subject supports the diagnosis of Diabetes Mellitus. Performed By: #### C OVID19 FLU RSV, CEPHEID NEG #### [facility] [address] Basic Metabolic Panelon 07-2 Calcium [Mass/Vol] 9.1 mg/dL Normal 8.2-10.2 [facility] Comment on above: Performed By: #### A ERC #### [facility] [address] [place] [address] [place] Chloride [Moles/Vol] 102 mmol/L Normal 95-114 [facility] Comment on above: Performed By: #### A ERC #### [facility] [address] CO2 [Moles/Vol] 25.8 mmol/L Normal 22.0-30.0 [facility] Comment on above: Performed By: #### A ERC #### [facility] [address] Creatinine [Mass/Vol] 1.24 mg/dL Normal 0.64-1.[address] [facility] Comment on above: Performed By: #### A ERC #### [facility] [address] [place] [address] [place] Creatinine Clr Calc Pharmacy 60.[address] [facility] Comment on above: Result Comment: PERF ORMED BY: [place] [address] PATHOLOGIST [employer] STATISTICAL PROGRAMMER SESAR YOST M.D. Performed By: #### A ERC #### [facility] [address] Estimated GFR ( Christal > [address] [facility] Comment on above: Result Comment: GFR estimated reference range: According to KDOQI guidelines, <60 ml/min/1.73m2 is sufficient to diagnose a patient with chronic kidney disease. Performed By: #### A ERC #### [facility] [address] Estimated GFR (Non- Am [address] [facility] Comment on above: Performed By: #### A ERC #### [facility] [address] Glucose [Mass/Vol] 176 mg/dL High 70-100 [facility] Comment on above: Result Comment: [place] om Glucose Reference Range is dependent on time and content of last meal. Glucose of more than 200 mg/dL in a nonstressed, ambulatory subject supports the diagnosis of Diabetes Mellitus. ADA recommended reference range Performed By: #### A ERC #### [facility] [address] Potassium [Moles/Vol] 3.6 mmol/L Normal 3.5-5.[address] [facility] Comment on above: Performed By: #### A ERC #### [facility] [address] Sodium [Moles/Vol] 136 mmol/L Normal 136-146 [facility] Comment on above: Performed By: #### A ERC #### [facility] [address] Urea nitrogen [Mass/Vol] 32 mg/dL High 9-[address] [facility] Comment on above: Performed By: #### A ERC #### [facility] [address] Basophils Auto (Bld) [#/Vol] Ordered By: Chante Narayan on 10-25-2021 Basophils (Bld) [#/Vol] 0.0 10*3/uL 0.0-0.[address] [facility] Basophils/100 WBC Auto (Bld) Ordered By: Chante Narayan on 10-25-2021 Basophils/100 WBC (Bld) 0.3 % . [facility] Blood hemoglobin measurement (mass/volume)Ordered By: Chante Narayan on 10-25-2021 Hemoglobin (Bld) [Mass/Vol] 11.2 g/dL 13.0-17.[address] [facility] Blood leukocytes automated c ount (number/volume)Ordered By: Chante Narayan on 10-25-2021 WBC (Bld) [#/Vol] 5.7 10*3/uL 4.5-11.0 [facility] Complete Blood Count Auto Di ffon 10-25-2021 Basophils (Bld) [#/Vol] 0.0 10*3/uL Normal 0.0-0.[address] [facility] Comment on above: Result Comment: PERF ORMED BY: [place] [address] PATHOLOGIST [employer] STATISTICAL PROGRAMMER SESAR YOST M.D. Performed By: #### A ERC #### [facility] [address] Basophils/100 WBC (Bld) 0.3 % Normal . [facility] Comment on above: Performed By: #### A ERC #### [facility] [address] Eosinophils (Bld) [#/Vol] 0.4 10*3/uL Normal 0.0-0.[address] [facility] Comment on above: Performed By: #### A ERC #### [facility] [address] Eosinophils/100 WBC (Bld) 6.7 % Normal . [facility] Comment on above: Performed By: #### A ERC #### [address] Erythrocyte distribution width (RBC) [Ratio] 17.6 % High 12.0-14.[address] [facility] Comment on above: Performed By: #### A ERC #### [address] Hematocrit (Bld) [Volume fraction] 33.0 % Low 38.8-50.[address] [facility] Comment on above: Performed By: #### A ERC #### [address] Hemoglobin (Bld) [Mass/Vol] 11.2 g/dL Low 13.0-17.[address] [facility] Comment on above: Performed By: #### A ERC #### [address] Lymphocytes (Bld) [#/Vol] 0.5 10*3/uL Low 1.00-4.[address] [facility] Comment on above: Performed By: #### A ERC #### [address] Lymphocytes/100 WBC (Bld) 9.4 % Normal . [facility] Comment on above: Performed By: #### A ERC #### [address] MCH (RBC) [Entitic mass] 29.3 pg Normal 27.5-35.[address] [facility] Comment on above: Performed By: #### A ERC #### [address] [place] [address] [place] MCV (RBC) [Entitic vol] 86.7 fL Normal 83.5-101 [facility] Comment on above: Performed By: #### A ERC #### [facility] [address] Mean Corpuscular HGB Conc 33.8 g/dL Normal 32.5-35.[address] [facility] Comment on above: Performed By: #### A ERC #### [facility] [address] Monocytes (Bld) [#/Vol] 0.8 10*3/uL Normal 0.0-0.[address] [facility] Comment on above: Performed By: #### A ERC #### [address] Monocytes/100 WBC (Bld) 14.5 % Normal . [facility] Comment on above: Performed By: #### A ERC #### [address] Neutrophils (Bld) [#/Vol] 4.0 10*3/uL Normal 1.8-7.[address] [facility] Comment on above: Performed By: #### A ERC #### [address] Neutrophils/100 WBC (Bld) 69.1 % Normal . [facility] Comment on above: Performed By: #### A ERC #### [place] [address] [place] Nucleated RBC/100 WBC (Bld) [Ratio] 0.1 % Normal 0-0.[address] [facility] Comment on above: Performed By: #### A ERC #### [address] Platelet mean volume (Bld) [Entitic vol] 8.6 fL Normal 6.6-10.[address] [facility] Comment on above: Performed By: #### A ERC #### [place] [address] [place] Platelets (Bld) [#/Vol] 159 10*3/uL Normal 150-[address] [facility] Comment on above: Performed By: #### A ERC #### [facility] [address] RBC (Bld) [#/Vol] 3.81 10*6/uL Low 3.90-5.60 [facility] Comment on above: Performed By: #### A ERC #### [facility] [address] WBC (Bld) [#/Vol] 5.7 10*3/uL Normal 4.5-11.0 [facility] Comment on above: Performed By: #### A ERC #### [facility] [address] Creatinine and Glomerular fi ltration rate.predicted panel (S/P/Bld)Ordered By: Chante Narayan on 10-25-2021 Creatinine [Mass/Vol] 1.24 mg/dL 0.64-1.[address] [facility] Eosinophils Auto (Bld) [#/Vo l]Ordered By: Chante Narayan on 10-25-2021 Eosinophils (Bld) [#/Vol] 0.4 10*3/uL 0.0-0.[address] [facility] Eosinophils/100 WBC Auto (Bl d)Ordered By: Chante Narayan on 10-25-2021 Eosinophils/100 WBC (Bld) 6.7 % . [facility] Erythrocyte distribution wid th Auto (RBC) [Ratio]Ordered By: Chante Narayan on 10-25-2021 Erythrocyte distribution width (RBC) [Ratio] 17.6 % 12.0-14.[address] [facility] Estimated glomerular filtrat ion rate (GFR) non- AmericanOrdered By: Chante Narayan on 10-25-2021 GFR/1.73 sq M.predicted among non-blacks MDRD (S/P/Bld) [Vol rate/Area] 59 mL/Min [facility] Glucose Poct Glucometerson 0 10-25-2021 Glucose [Mass/Vol] 275 mg/dL Normal [facility] Comment on above: Result Comment: [place] Glucose Reference Range is dependent on time and content of last meal. Glucose of more than 200 mg/dL in a nonstressed, ambulatory subject supports the diagnosis of Diabetes Mellitus. PERFORMED BY: [place] [address] PATHOLOGIST [employer] STATISTICAL PROGRAMMER SESAR YOST M.D. Performed By: #### G LULS ####Point of Care testing, Glucose [Mass/Vol] 249 mg/dL Normal [facility] Comment on above: Result Comment: [place] Glucose Reference Range is dependent on time and content of last meal. Glucose of more than 200 mg/dL in a nonstressed, ambulatory subject supports the diagnosis of Diabetes Mellitus. PERFORMED BY: [place] [address] PATHOLOGIST [employer] STATISTICAL PROGRAMMER SESAR YOST M.D. Performed By: #### A ERC #### [address] Glucose [Mass/Vol] 160 mg/dL Normal [facility] Comment on above: Result Comment: [place] Glucose Reference Range is dependent on time and content of last meal. Glucose of more than 200 mg/dL in a nonstressed, ambulatory subject supports the diagnosis of Diabetes Mellitus. PERFORMED BY: [place] [address] PATHOLOGIST [employer] STATISTICAL PROGRAMMER SESAR YOST M.D. Performed By: #### G LULS ####Point of Care testing, Hematocrit Auto (Bld) [Volum e fraction]Ordered By: Chante Narayan on 10-25-2021 Hematocrit (Bld) [Volume fraction] 33.0 % 38.8-50.[address] [facility] Laboratory - Hematology and Cell countsOrdered By: Chante Narayan on 10-25-2021 Nucleated RBC/100 WBC (Bld) [Ratio] 0.1 % 0-0.[address] [facility] Lymphocytes Auto (Bld) [#/Vo l]Ordered By: Chante Narayan on 10-25-2021 Lymphocytes (Bld) [#/Vol] 0.5 10*3/uL 1.00-4.[address] [facility] Lymphocytes/100 WBC Auto (Bl d)Ordered By: Chante Narayan on 10-25-2021 Lymphocytes/100 WBC (Bld) 9.4 % . [facility] MCH Auto (RBC) [Entitic mass ]Ordered By: Chante Narayan on 10-25-2021 MCH (RBC) [Entitic mass] 29.3 pg 27.5-35.[address] [facility] MCHC Auto (RBC) [Mass/Vol]Or dered By: Chante Narayan on 10-25-2021 MCHC (RBC) [Mass/Vol] 33.8 g/dL 32.5-35.6 [facility] MCV Auto (RBC) [Entitic vol] Ordered By: Chante Narayan on 10-25-2021 MCV (RBC) [Entitic vol] 86.7 fL 83.5-101 [facility] Monocytes Auto (Bld) [#/Vol] Ordered By: Chante Narayan on 10-25-2021 Monocytes (Bld) [#/Vol] 0.8 10*3/uL 0.0-0.[address] [facility] Monocytes/100 WBC Auto (Bld) Ordered By: Chante Narayan on 10-25-2021 Monocytes/100 WBC (Bld) 14.5 % . [facility] Neutrophils Auto (Bld) [#/Vo l]Ordered By: Chante Narayan on 10-25-2021 Neutrophils (Bld) [#/Vol] 4.0 10*3/uL 1.8-7.[address] [facility] Neutrophils/100 WBC Auto (Bl d)Ordered By: Chante Narayan on 10-25-2021 Neutrophils/100 WBC (Bld) 69.1 % . [facility] No Panel InformationOrdered By: Chante Narayan on 10-25-2021 Estimated GFR () > 60 mL/Min [facility] Comment on above: GFR estimated refere nce range: According to KDOQI guidelines, <60 ml/min/1.73m2 is sufficient to diagnose a patient with chronic kidney disease. Pharmacy Creatinine Clearance (Chem 60.[address] [facility] Platelet mean volume Auto (B ld) [Entitic vol]Ordered By: Chante Narayan on 10-25-2021 Platelet mean volume (Bld) [Entitic vol] 8.6 fL 6.6-10.[address] [facility] Platelets Auto (Bld) [#/Vol] Ordered By: Chante Narayan on 10-25-2021 Platelets (Bld) [#/Vol] 159 10*3/uL 150-[address] [facility] RBC Auto (Bld) [#/Vol]Ordere d By: Chante Narayan on 10-25-2021 RBC (Bld) [#/Vol] 3.81 10*6/uL 3.90-5.60 [facility] Serum or plasma calcium sergei urement (mass/volume)Ordered By: Chante Narayan on 10-25-2021 Calcium [Mass/Vol] 9.1 mg/dL 8.2-10.2 [facility] Serum or plasma chloride zofia surement (moles/volume)Ordered By: Chante Narayan on 10-25-2021 Chloride [Moles/Vol] 102 mmol/L 95-114 [facility] Serum or plasma glucose sergei urement (mass/volume)Ordered By: Chante Narayan on 10-25-2021 Glucose [Mass/Vol] 176 mg/dL 70-100 [facility] Comment on above: ADA recommended refe rence range Random Glucose Reference Range is dependent on time and content of last meal. Glucose of more than 200 mg/dL in a nonstressed, ambulatory subject supports the diagnosis of Diabetes Mellitus. Serum or plasma potassium me asurement (moles/volume)Ordered By: Chante Narayan on 10-25-2021 Potassium [Moles/Vol] 3.6 mmol/L 3.5-5.[address] [facility] Serum or plasma sodium measu rement (moles/volume)Ordered By: Chante Narayan on 10-25-2021 Sodium [Moles/Vol] 136 mmol/L 136-146 [facility] Serum or plasma total carbon dioxide measurement (moles/volume)Ordered By: Chante Narayan on 10-25-2021 CO2 [Moles/Vol] 25.8 mmol/L 22.0-30.0 [facility] Serum or plasma urea nitroge n measurement (mass/volume)Ordered By: Chante Narayan on 10-25-2021 Urea nitrogen [Mass/Vol] 32 mg/dL 12-[address] [facility] Glucose Poct Glucometerson 0 10-24-2021 Glucose [Mass/Vol] 225 mg/dL Normal [facility] Comment on above: Result Comment: [place] om Glucose Reference Range is dependent on time and content of last meal. Glucose of more than 200 mg/dL in a nonstressed, ambulatory subject supports the diagnosis of Diabetes Mellitus. Performed By: #### A ERC #### [address] Commemt1 Glu2: Cleaned Meter Normal [facility] Comment on above: Result Comment: PERF ORMED BY: [place] [address] PATHOLOGIST [employer] STATISTICAL PROGRAMMER SESAR YOST M.D. Performed By: #### A ERC #### [address] Performed By: #### G LULS ####Point of Care testing, Glucose [Mass/Vol] 204 mg/dL Normal [facility] Comment on above: Result Comment: [place] Glucose Reference Range is dependent on time and content of last meal. Glucose of more than 200 mg/dL in a nonstressed, ambulatory subject supports the diagnosis of Diabetes Mellitus. Performed By: #### A ERC #### [facility] [address] [place] [address] Glucose [Mass/Vol] 164 mg/dL Normal [facility] Comment on above: Result Comment: [place] om Glucose Reference Range is dependent on time and content of last meal. Glucose of more than 200 mg/dL in a nonstressed, ambulatory subject supports the diagnosis of Diabetes Mellitus. Performed By: #### G LULS ####Point of Care testing, Glucose [Mass/Vol] 129 mg/dL Normal [facility] Comment on above: Result Comment: [place] om Glucose Reference Range is dependent on time and content of last meal. Glucose of more than 200 mg/dL in a nonstressed, ambulatory subject supports the diagnosis of Diabetes Mellitus. PERFORMED BY: [place] [address] PATHOLOGIST [employer]IST[employer] PROGRAM[employer] SESAR YOST M.D. Performed By: #### C OVID19 FLU RSV, CEPHEID NEG #### [place] [address] [place] Glucose Poct Glucometerson 0 10-23-2021 Commemt1 Glu2: Cleaned Meter [facility] Comment on above: Result Comment: PERF ORMED BY: [place] [address] PATHOLOGIST [employer]ISTICAL PROGRAMMER SESAR YOST M.D. Performed By: #### A ERC #### [address] Glucose [Mass/Vol] 256 mg/dL Normal [facility] Comment on above: Result Comment: [place] om Glucose Reference Range is dependent on time and content of last meal. Glucose of more than 200 mg/dL in a nonstressed, ambulatory subject supports the diagnosis of Diabetes Mellitus. Performed By: #### A ERC #### [address] Glucose [Mass/Vol] 255 mg/dL Normal [facility] Comment on above: Result Comment: [place] om Glucose Reference Range is dependent on time and content of last meal. Glucose of more than 200 mg/dL in a nonstressed, ambulatory subject supports the diagnosis of Diabetes Mellitus. PERFORMED BY: [place] [address] PATHOLOGIST [employer] STATISTICAL PROGRAMMER SESAR YOST M.D. Performed By: #### G LULS #### Point of Care testing , Commemt1 Glu2: Cleaned Meter [facility] Comment on above: Result Comment: PERF ORMED BY: [facility] [address] [place] [address] PATHOLOGIST [employer] STATISTICAL PROGRAMMER SESAR YOST M.D. Performed By: #### A ERC #### [place] [address] Glucose [Mass/Vol] 232 mg/dL Normal [facility] Comment on above: Result Comment: [place] om Glucose Reference Range is dependent on time and content of last meal. Glucose of more than 200 mg/dL in a nonstressed, ambulatory subject supports the diagnosis of Diabetes Mellitus. Performed By: #### A ERC #### [facility] [address] [place] [address] [place] Commemt1 Glu2: Cleaned Meter Normal [facility] Comment on above: Result Comment: PERF ORMED BY: [place] [address] PATHOLOGIST [employer] STATISTICAL PROGRAMMER SESAR YOST M.D. Performed By: #### C OVID19 FLU RSV, CEPHEID NEG #### [place] [address] [place] Glucose [Mass/Vol] 155 mg/dL Normal [facility] Comment on above: Result Comment: [place] Glucose Reference Range is dependent on time and content of last meal. Glucose of more than 200 mg/dL in a nonstressed, ambulatory subject supports the diagnosis of Diabetes Mellitus. Performed By: #### C OVID19 FLU RSV, CEPHEID NEG #### [address] Albumin [Mass/volume] in Ser um or PlasmaOrdered By: Chante Narayan on 10-22-2021 Albumin [Mass/Vol] 3.1 g/dL 3.2-5.5 [facility] Complete Blood Count Auto Di ffon 10-22-2021 Basophils (Bld) [#/Vol] 0.0 10*3/uL Normal 0.0-0.[address] [facility] Comment on above: Result Comment: PERF ORMED BY: [place] [address] PATHOLOGIST [employer] STATISTICAL PROGRAMMER SESAR YOST M.D. Performed By: #### C BC, BMP #### [place] [address] [place] Basophils/100 WBC (Bld) 0.6 % Normal . [facility] Comment on above: Performed By: #### C BC, BMP #### [facility] [address] Eosinophils (Bld) [#/Vol] 0.3 10*3/uL Normal 0.0-0.[address] [facility] Comment on above: Performed By: #### C BC, BMP #### [facility] [address] Eosinophils/100 WBC (Bld) 4.5 % Normal . [facility] Comment on above: Performed By: #### C BC, BMP #### [facility] [address] Erythrocyte distribution width (RBC) [Ratio] 17.8 % High 12.0-14.[address] [facility] Comment on above: Performed By: #### C BC, BMP #### [facility] [address] Hematocrit (Bld) [Volume fraction] 34.6 % Low 38.8-50.[address] [facility] Comment on above: Performed By: #### C BC, BMP #### [facility] [address] Hemoglobin (Bld) [Mass/Vol] 11.8 g/dL Low 13.0-17.[address] [facility] Comment on above: Performed By: #### C BC, BMP #### [facility] [address] [place] [address] [place] Lymphocytes (Bld) [#/Vol] 0.7 10*3/uL Low 1.00-4.[address] [facility] Comment on above: Performed By: #### C BC, BMP #### [facility] [address] [place] [address] [place] Lymphocytes/100 WBC (Bld) 10.0 % Normal . [facility] Comment on above: Performed By: #### C BC, BMP #### [facility] [address] MCH (RBC) [Entitic mass] 29.5 pg Normal 27.5-35.[address] [facility] Comment on above: Performed By: #### C BC, BMP #### [facility] [address] MCV (RBC) [Entitic vol] 86.7 fL Normal 83.5-101 [facility] Comment on above: Performed By: #### C BC, BMP #### [facility] [address] Mean Corpuscular HGB Conc 34.0 g/dL Normal 32.5-35.[address] [facility] Comment on above: Performed By: #### C BC, BMP #### [facility] [address] [place] [address] [place] Monocytes (Bld) [#/Vol] 1.0 10*3/uL High 0.0-0.[address] [facility] Comment on above: Performed By: #### C BC, BMP #### [facility] [address] [place] [address] [place] Monocytes/100 WBC (Bld) 14.8 % Normal . [facility] Comment on above: Performed By: #### C BC, BMP #### [facility] [address] [place] [address] [place] Neutrophils (Bld) [#/Vol] 4.6 10*3/uL Normal 1.8-7.[address] [facility] Comment on above: Performed By: #### C BC, BMP #### [facility] [address] [place] [address] [place] Neutrophils/100 WBC (Bld) 70.1 % Normal . [facility] Comment on above: Performed By: #### C BC, BMP #### [facility] [address] [place] [address] [place] Nucleated RBC/100 WBC (Bld) [Ratio] 0.0 % Normal 0-0.[address] [facility] Comment on above: Performed By: #### C BC, BMP #### [facility] [address] Platelet mean volume (Bld) [Entitic vol] 8.8 fL Normal 6.6-10.[address] [facility] Comment on above: Performed By: #### C BC, BMP #### [facility] [address] Platelets (Bld) [#/Vol] 148 10*3/uL Low 150-[address] [facility] Comment on above: Performed By: #### C BC, BMP #### [facility] [address] [place] [address] RBC (Bld) [#/Vol] 3.99 10*6/uL Normal 3.90-5.60 [facility] Comment on above: Performed By: #### C BC, BMP #### [address] WBC (Bld) [#/Vol] 6.6 10*3/uL Normal 4.5-11.0 [facility] Comment on above: Performed By: #### C BC, BMP #### [address] Comprehensive Metabolic Pane ray 10-22-2021 Albumin [Mass/Vol] 3.1 g/dL Low 3.2-5.5 [facility] Comment on above: Performed By: #### C BC, BMP #### [address] Albumin/Globulin [Mass ratio] 1.0 {ratio} Normal [facility] Comment on above: Performed By: #### C BC, BMP #### [address] ALP [Catalytic activity/Vol] 71 U/L Normal 32-[address] [facility] Comment on above: Performed By: #### C BC, BMP #### [facility] [address] [place] [address] ALT [Catalytic activity/Vol] 21 U/L Normal 10-[address] [facility] Comment on above: Performed By: #### C BC, BMP #### [address] AST [Catalytic activity/Vol] 23 U/L Normal 10-[address] [facility] Comment on above: Performed By: #### C BC, BMP #### [facility] [address] [place] [address] [place] Bilirubin [Mass/Vol] 1.0 mg/dL Normal 0.3-1.2 [facility] Comment on above: Performed By: #### C BC, BMP #### [facility] [address] [place] [id number] [place] Calcium [Mass/Vol] 9.3 mg/dL Normal 8.2-10.2 [facility] Comment on above: Performed By: #### C BC, BMP #### [facility] [address] [place] [address] [place] Chloride [Moles/Vol] 100 mmol/L Normal 95-114 [facility] Comment on above: Performed By: #### C BC, BMP #### [facility] [address] [place] [id number] [facility] CO2 [Moles/Vol] 29.2 mmol/L Normal 22.0-30.0 [facility] Comment on above: Performed By: #### C BC, BMP #### [facility] [address] [place] [address] [place] Creatinine [Mass/Vol] 1.32 mg/dL High 0.64-1.[address] [facility] Comment on above: Performed By: #### C BC, BMP #### [facility] [address] [place] [id number] [place] Creatinine Clr Calc Pharmacy 53.[address] [facility] Comment on above: Performed By: #### C BC, BMP #### [facility] [address] [place] [id number] [place] Estimated GFR ( Christal > [address] [facility] Comment on above: Result Comment: GFR estimated reference range: According to KDOQI guidelines, <60 ml/min/1.73m2 is sufficient to diagnose a patient with chronic kidney disease. Performed By: #### C BC, BMP #### [facility] [address] [place] [id number] [place] Estimated GFR (Non- Am [address] [facility] Comment on above: Performed By: #### C BC, BMP #### [facility] [address] Globulin (S) [Mass/Vol] 3.0 g/dL Normal [facility] Comment on above: Performed By: #### C BC, BMP #### [facility] [address] Glucose [Mass/Vol] 179 mg/dL High 70-100 [facility] Comment on above: Result Comment: [facility] Glucose Reference Range is dependent on time and content of last meal. Glucose of more than 200 mg/dL in a nonstressed, ambulatory subject supports the diagnosis of Diabetes Mellitus. ADA recommended reference range Performed By: #### C BC, BMP #### [address] Potassium [Moles/Vol] 3.5 mmol/L Normal 3.5-5.[address] [facility] Comment on above: Performed By: #### C BC, BMP #### [address] Protein [Mass/Vol] 6.1 g/dL Normal 6.1-7.9 [facility] Comment on above: Performed By: #### C BC, BMP #### [address] Sodium [Moles/Vol] 137 mmol/L Normal 136-146 [facility] Comment on above: Performed By: #### C BC, BMP #### [address] Urea nitrogen [Mass/Vol] 32 mg/dL High 12-[address] [facility] Comment on above: Performed By: #### C BC, BMP #### [address] Globulin Calc (S) [Mass/Vol] Ordered By: Chante Narayan on 10-22-2021 Globulin (S) [Mass/Vol] 3.0 g/dL [facility] Glucose Poct Glucometerson 0 10-22-2021 Glucose [Mass/Vol] 286 mg/dL Normal [facility] Comment on above: Result Comment: [place] om Glucose Reference Range is dependent on time and content of last meal. Glucose of more than 200 mg/dL in a nonstressed, ambulatory subject supports the diagnosis of Diabetes Mellitus. PERFORMED BY: [place] [address] PATHOLOGIST [employer] STATISTICAL PROGRAMMER SESAR YOST M.D. Performed By: #### G LULS #### Point of Care testing , Commemt1 Glu2: Cleaned Meter Normal [facility] Comment on above: Result Comment: PERF ORMED BY: [place] [address] PATHOLOGIST [employer] STATISTICAL PROGRAMMER SESAR YOST M.D. Performed By: #### A ERC #### [address] Glucose [Mass/Vol] 267 mg/dL Normal [facility] Comment on above: Result Comment: [place] om Glucose Reference Range is dependent on time and content of last meal. Glucose of more than 200 mg/dL in a nonstressed, ambulatory subject supports the diagnosis of Diabetes Mellitus. Performed By: #### A ERC #### [facility] [address] [place] [address] [place] Glucose [Mass/Vol] 226 mg/dL Normal [facility] Comment on above: Result Comment: [place] Glucose Reference Range is dependent on time and content of last meal. Glucose of more than 200 mg/dL in a nonstressed, ambulatory subject supports the diagnosis of Diabetes Mellitus. PERFORMED BY: [place] [address] PATHOLOGIST [employer] STATISTICAL PROGRAMMER SESAR YOST M.D. Performed By: #### C OVID19 FLU RSV, CEPHEID NEG #### [facility] [address] [place] [address] [place] Glucose [Mass/Vol] 175 mg/dL Normal [facility] Comment on above: Result Comment: [place] om Glucose Reference Range is dependent on time and content of last meal. Glucose of more than 200 mg/dL in a nonstressed, ambulatory subject supports the diagnosis of Diabetes Mellitus. PERFORMED BY: [place] [address] PATHOLOGIST [employer] STATISTICAL PROGRAMMER SESAR YOST M.D. Performed By: #### C OVID19 FLU RSV, CEPHEID NEG #### [address] [address] [place] Prealbuminon 10-22-2021 Prealbumin [Mass/Vol] 19.4 mg/dL Normal 18.0-38.[address] [facility] Comment on above: Result Comment: PERF ORMED BY: [place] [address] PATHOLOGIST [employer] STATISTICAL PROGRAMMER SESAR YOST M.D. Performed By: #### C BC, BMP #### [facility] [address] [place], [place] [id number] [facility] Protein [Mass/volume] in Ser um or PlasmaOrdered By: Chante Narayan on 10-22-2021 Protein [Mass/Vol] 6.1 g/dL 6.1-7.9 [facility] Serum or plasma alanine dasilva otransferase measurement without P-5'-P (enzymatic activiOrdered By: Chante Narayan on 10-22-2021 ALT No additional P-5'-P [Catalytic activity/Vol] 21 U/L 10-60 [facility] Serum or plasma albumin/glob ulin mass ratioOrdered By: Chante Narayan on 10-22-2021 Albumin/Globulin [Mass ratio] 1.0 {ratio} [facility] Serum or plasma alkaline bob sphatase measurement (enzymatic activity/volume)Ordered By: Chante Narayan on 10-22-2021 ALP [Catalytic activity/Vol] 71 U/L 32-[address] [facility] Serum or plasma aspartate am inotransferase measurement (enzymatic activity/volume)Ordered By: Chante Narayan on 10-22-2021 AST [Catalytic activity/Vol] 23 U/L 10-[address] [facility] Serum or plasma prealbumin m easurement (mass/volume)Ordered By: Chante Narayan on 10-22-2021 Prealbumin [Mass/Vol] 19.4 mg/dL 18.0-38.[address] [facility] Serum or plasma total biliru bin measurement (mass/volume)Ordered By: Chante Narayan on 10-22-2021 Bilirubin [Mass/Vol] 1.0 mg/dL 0.3-1.2 [facility] Bacteria identified Anaer cx Nom (Unsp spec)Ordered By: Reddy Brandt on 10-21-2021 Anaerobic microbial culture No Anaerobes Isolated [address] [facility] COVID-19 FRMCon 10-21-2021 SARS-CoV-2 (COVID-19) RNA MEREDITH+probe Ql (Unsp spec) Negative Normal Negative [facility] Comment on above: Order Comment: Comme nt Required for rehab admission Healthcare Worker?: N Result Comment: Testing for SARS-CoV-2 by RT-PCR This test was developed and its performance characteristics determined by [employer]) and validated at the [facility]. This test has not been FDA cleared or approved. This test has been authorized by FDA under an Emergency Use Authorization (EUA). This test has been validated in accordance with the FDA's Guidance Document (Policy for Diagnostics Testing in Laboratories Certified to Perform High Complexity Testing under CLIA prior to Emergency Use Authorization for Coronavirus Disease-2019 during the Public Health Emergency) issued on July 03, 2019. This test is only authorized for the duration of time the declaration that circumstances exist justifying the authorization of the emergency use of in vitro diagnostic tests for detection of SARS-CoV-2 virus and/or diagnosis of COVID-19 infection under section 564(b)(1) of the Act, 21 U.S.C. 360bbb-3(b)(1), unless the authorization is terminated or revoked sooner. PERFORMED BY: [facility] [address] [place] [address] PATHOLOGIST [employer] STATISTICAL PROGRAMMER SESAR YOST M.D. Performed By: #### C OVID19 FLU RSV, CEPHEID NEG #### [address] COVID-19 Positive/NegativeOr dered By: Reddy Brandt on 10-21-2021 SARS-CoV-2 (COVID-19) N gene MEREDITH+probe Ql (Resp) Negative Negative [facility] Comment on above: Testing for SARS-CoV -2 by RT-PCR This test was developed and its performance characteristics determined by [employer] ([place]) and validated at the [facility]. This test has not been FDA cleared or approved. This test has been authorized by FDA under an Emergency Use Authorization (EUA). This test has been validated in accordance with the FDA's Guidance Document (Policy for Diagnostics Testing in Laboratories Certified to Perform High Complexity Testing under CLIA prior to Emergency Use Authorization for Coronavirus Disease-2019 during the Public Health Emergency) issued on July 03, 2019. This test is only authorized for the duration of time the declaration that circumstances exist justifying the authorization of the emergency use of in vitro diagnostic tests for detection of SARS-CoV-2 virus and/or diagnosis of COVID-19 infection under section 564(b)(1) of the Act, 21 U.S.C. 360bbb-3(b)(1), unless the authorization is terminated or revoked sooner. Glucose Glucometer (BldC) [M ass/Vol]Ordered By: Reddy Brandt on 10-21-2021 Glucose [Mass/Vol] 298 mg/dL [facility] Comment on above: Random Glucose Refer ence Range is dependent on time and content of last meal. Glucose of more than 200 mg/dL in a nonstressed, ambulatory subject supports the diagnosis of Diabetes Mellitus. Glucose Poct Glucometerson 0 10-21-2021 Commemt1 Glu2: Cleaned Meter Normal [facility] Comment on above: Result Comment: PERF ORMED BY: [place] [address] PATHOLOGIST [employer] STATISTICAL PROGRAMMER SESAR YOST M.D. Performed By: #### C OVID19 FLU RSV, CEPHEID NEG #### [address] Glucose [Mass/Vol] 314 mg/dL Normal [facility] Comment on above: Result Comment: [place] Glucose Reference Range is dependent on time and content of last meal. Glucose of more than 200 mg/dL in a nonstressed, ambulatory subject supports the diagnosis of Diabetes Mellitus. Performed By: #### C OVID19 FLU RSV, CEPHEID NEG #### [place] [address] [place] Commemt1 Glu2: Cleaned Meter [facility] Comment on above: Result Comment: PERF ORMED BY: [place] [address] PATHOLOGIST [employer] STATISTICAL PROGRAMMER SESAR YOST M.D. Performed By: #### C OVID19 FLU RSV, CEPHEID NEG #### [address] Glucose [Mass/Vol] 298 mg/dL Normal [facility] Comment on above: Result Comment: [place] om Glucose Reference Range is dependent on time and content of last meal. Glucose of more than 200 mg/dL in a nonstressed, ambulatory subject supports the diagnosis of Diabetes Mellitus. Performed By: #### C OVID19 FLU RSV, CEPHEID NEG #### [address] Commemt1 [facility] Comment on above: Result Comment: Glu2 : WILL NOTIFY DR/RN Performed By: #### C OVID19 FLU RSV, CEPHEID NEG #### [place] [address] [place] Commemt2 Cleaned Meter [facility] Comment on above: Result Comment: PERF ORMED BY: [place] [address] PATHOLOGIST [employer] STATISTICAL PROGRAMMER SESAR YOST M.D. Performed By: #### C OVID19 FLU RSV, CEPHEID NEG #### [address] Glucose [Mass/Vol] 316 mg/dL Normal [facility] Comment on above: Result Comment: [place] Glucose Reference Range is dependent on time and content of last meal. Glucose of more than 200 mg/dL in a nonstressed, ambulatory subject supports the diagnosis of Diabetes Mellitus. Performed By: #### C OVID19 FLU RSV, CEPHEID NEG #### [place] [address] [place] Commemt1 Glu2: Cleaned Meter Normal [facility] Comment on above: Result Comment: PERF ORMED BY: [place] [address] PATHOLOGIST [employer] STATISTICAL PROGRAMMER SESAR YOST M.D. Performed By: #### C OVID19 FLU RSV, CEPHEID NEG #### [address] Glucose [Mass/Vol] 308 mg/dL Normal [facility] Comment on above: Result Comment: [place] Glucose Reference Range is dependent on time and content of last meal. Glucose of more than 200 mg/dL in a nonstressed, ambulatory subject supports the diagnosis of Diabetes Mellitus. Performed By: #### C OVID19 FLU RSV, CEPHEID NEG #### [address] Glucose [Mass/Vol] 240 mg/dL Normal [facility] Comment on above: Result Comment: [place] om Glucose Reference Range is dependent on time and content of last meal. Glucose of more than 200 mg/dL in a nonstressed, ambulatory subject supports the diagnosis of Diabetes Mellitus. PERFORMED BY: [place] [address] PATHOLOGIST [employer] STATISTICAL PROGRAMMER SESAR YOST M.D. Performed By: #### C BC, BMP #### [address] No Panel InformationOrdered By: Reddy Brandt on 10-21-2021 Bedside Glucose Comment Glu2: cleaned meter [facility] Bedside Glucose #2 Comment Cleaned meter [facility] Glucose Poct Glucometerson 0 10-20-2021 Glucose [Mass/Vol] 253 mg/dL Normal [facility] Comment on above: Result Comment: [place] om Glucose Reference Range is dependent on time and content of last meal. Glucose of more than 200 mg/dL in a nonstressed, ambulatory subject supports the diagnosis of Diabetes Mellitus. PERFORMED BY: [place] [address] PATHOLOGIST [employer] STATISTICAL PROGRAMMER SESAR YOST M.D. Performed By: #### C OVID19 FLU RSV, CEPHEID NEG #### [address] Glucose [Mass/Vol] 215 mg/dL Normal [facility] Comment on above: Result Comment: [place] om Glucose Reference Range is dependent on time and content of last meal. Glucose of more than 200 mg/dL in a nonstressed, ambulatory subject supports the diagnosis of Diabetes Mellitus. PERFORMED BY: [place] [address] PATHOLOGIST [employer] STATISTICAL PROGRAMMER SESAR YOST M.D. Performed By: #### C OVID19 FLU RSV, CEPHEID NEG #### [address] Glucose [Mass/Vol] 221 mg/dL Normal [facility] Comment on above: Result Comment: [place] Glucose Reference Range is dependent on time and content of last meal. Glucose of more than 200 mg/dL in a nonstressed, ambulatory subject supports the diagnosis of Diabetes Mellitus. PERFORMED BY: [place] [address] PATHOLOGIST [employer] STATISTICAL PROGRAMMER SESAR YOST M.D. Performed By: #### C BC, BMP #### [address] Glucose [Mass/Vol] 203 mg/dL Normal [facility] Comment on above: Result Comment: [place] Glucose Reference Range is dependent on time and content of last meal. Glucose of more than 200 mg/dL in a nonstressed, ambulatory subject supports the diagnosis of Diabetes Mellitus. PERFORMED BY: [place] [address] PATHOLOGIST [employer] STATISTICAL PROGRAMMER SESAR YOST M.D. Performed By: #### C OVID19 FLU RSV, CEPHEID NEG #### [address] ABO and Rh group post transf usion reaction Nom (Bld)Ordered By: Reddy Brandt on 10-19-2021 Microscopic observation Gram stain Nom (Unsp spec) [facility] Glucose Poct Glucometerson 0 10-19-2021 Glucose [Mass/Vol] 291 mg/dL Normal [facility] Comment on above: Result Comment: [place] om Glucose Reference Range is dependent on time and content of last meal. Glucose of more than 200 mg/dL in a nonstressed, ambulatory subject supports the diagnosis of Diabetes Mellitus. PERFORMED BY: [place] [address] PATHOLOGIST [employer] STATISTICAL PROGRAMMER SESAR YOST M.D. Performed By: #### A ERC #### [facility] [address] [place] [address] [place] Glucose [Mass/Vol] 271 mg/dL Normal [facility] Comment on above: Result Comment: [place] om Glucose Reference Range is dependent on time and content of last meal. Glucose of more than 200 mg/dL in a nonstressed, ambulatory subject supports the diagnosis of Diabetes Mellitus. PERFORMED BY: [place] [address] PATHOLOGIST [employer] STATISTICAL PROGRAMMER SESAR YOST M.D. Performed By: #### C BC, BMP #### [place] [address] [place] Glucose [Mass/Vol] 320 mg/dL Normal [facility] Comment on above: Result Comment: [place] Glucose Reference Range is dependent on time and content of last meal. Glucose of more than 200 mg/dL in a nonstressed, ambulatory subject supports the diagnosis of Diabetes Mellitus. PERFORMED BY: [place] [address] PATHOLOGIST [employer] STATISTICAL PROGRAMMER SESAR YOST M.D. Performed By: #### C OVID19 FLU RSV, CEPHEID NEG #### [facility] [address] [place] [address] [place] Glucose [Mass/Vol] 266 mg/dL Normal [facility] Comment on above: Result Comment: [place] om Glucose Reference Range is dependent on time and content of last meal. Glucose of more than 200 mg/dL in a nonstressed, ambulatory subject supports the diagnosis of Diabetes Mellitus. PERFORMED BY: [place] [address] PATHOLOGIST [employer] STATISTICAL PROGRAMMER SESAR YOST M.D. Performed By: #### C BC, BMP #### [facility] [address] [place] [address] Glucose [Mass/Vol] 294 mg/dL Normal [facility] Comment on above: Result Comment: [place] om Glucose Reference Range is dependent on time and content of last meal. Glucose of more than 200 mg/dL in a nonstressed, ambulatory subject supports the diagnosis of Diabetes Mellitus. PERFORMED BY: [place] [phone] PATHOLOGIST [employer] STATISTICAL PROGRAMMER SESAR YOST M.D. Performed By: #### C OVID19 FLU RSV, CEPHEID NEG #### [address] ABO/Rh Retypeon 10-18-2021 ABO/RH Recheck Result Negative [facility] Comment on above: Result Comment: PERF ORMED BY: [place] [phone] PATHOLOGIST [employer] STATISTICAL PROGRAMMER SESAR YOST M.D. Aerobic Cultureon 10-18-2021 Aerobic Culture Comment Right Tibia No Growth 2 Days Comment Right Tibia No Anaerobes Isolated 3 Days Comment Right Tibia Gram Stain Result No Bacteria Seen PERFORMED BY: [phone] PATHOLOGIST [employer] STATISTICAL PROGRAMMER SESAR YOST M.D. [facility] Comment on above: Performed By: #### A ERC #### [facility] [address] [place] [address] Glucose Poct Glucometerson 0 10-18-[address] [facility] Comment on above: Result Comment: Glu2 : Will Repeat Test PERFORMED BY: [place] [phone] PATHOLOGIST [employer] STATISTICAL PROGRAMMER SESAR YOST M.D. Performed By: #### G LULS #### Point of Care testing , Glucose [Mass/Vol] 451 mg/dL Off scale high [facility] Comment on above: Result Comment: [place] om Glucose Reference Range is dependent on time and content of last meal. Glucose of more than 200 mg/dL in a nonstressed, ambulatory subject supports the diagnosis of Diabetes Mellitus. Performed By: #### G HAMILTONLS #### Point of Care testing , Commemt1 Glu2: Cleaned Meter [facility] Comment on above: Result Comment: PERF ORMED BY: [place] [address] PATHOLOGIST [employer] STATISTICAL PROGRAMMER SESAR YOST M.D. Performed By: #### C BC, BMP #### [facility] [address] [place] [address] [place] Glucose [Mass/Vol] 258 mg/dL Normal [facility] Comment on above: Result Comment: [place] om Glucose Reference Range is dependent on time and content of last meal. Glucose of more than 200 mg/dL in a nonstressed, ambulatory subject supports the diagnosis of Diabetes Mellitus. Performed By: #### C BC, BMP #### [place] [address] [place] Glucose [Mass/Vol] 193 mg/dL Normal [facility] Comment on above: Result Comment: [place] om Glucose Reference Range is dependent on time and content of last meal. Glucose of more than 200 mg/dL in a nonstressed, ambulatory subject supports the diagnosis of Diabetes Mellitus. PERFORMED BY: [place] [address] PATHOLOGIST [employer] STATISTICAL PROGRAMMER SESAR YOST M.D. Performed By: #### G KAYLIN #### Point of Care testing , Commemt1 Glu2: Cleaned Meter [facility] Comment on above: Result Comment: PERF ORMED BY: [place] [address] PATHOLOGIST [employer] STATISTICAL PROGRAMMER SESAR YOST M.D. Performed By: #### C OVID19 FLU RSV, CEPHEID NEG #### [facility] [address] [place] [address] [place] Glucose [Mass/Vol] 231 mg/dL Normal [facility] Comment on above: Result Comment: [place] Glucose Reference Range is dependent on time and content of last meal. Glucose of more than 200 mg/dL in a nonstressed, ambulatory subject supports the diagnosis of Diabetes Mellitus. Performed By: #### C OVID19 FLU RSV, CEPHEID NEG #### [facility] [address] [place] [id number] [facility] Ray 10-18-2021 L - -------- Specimen: [id number] Received: 10/18/21 Status: SASHA León Num: [id number] Spec Type: Surgical Subm Dr: Reddy Brandt DO Tissues: A Extremity - Amputation, Non-Traumatic (RT LEG) Procedures: HARRISON Ascencio/8, Gross/Micro L5, Marychuy -------- Age/ Patient Sex Location Account Attending Physician -------- Anai Goodman 66/M 4N [id number] Reddy Brandt DO -------- SPEC NUM: [id number] RECD: 10/18/21 STATUS: SASHA LEÓN NUM: [id number] KARIME: 10/18/[address] [facility] [address]: Reddy Brandt DO ENTERED: 10/18/[address] [facility] [address]: BIA TYPE: Surgical DEPT: S ORDERED: HE Stain/8, Gross/Micro L5, Decal ORDERED: HE Stain/8, Gross/Micro L5, Decal Pathological Diagnosis Right leg, below knee amputation: - Skin with hyperkeratosis, acanthosis and underling chronic inflammation and granulation tissue. - Bone with chronic osteomyelitis. - Mild calcific atherosclerosis of blood vessels at resection margin. - Skin, soft tissue and bone resection margins appear viable; skeletal muscle with atrophic changes. Clinical Information Osteomyelitis Gross Description Received fresh in a plastic bag labeled with patient's name and number number and right leg , is a right below knee amputation. The right foot measures 25.5 in length by 9.5 cm in width and 8 cm in thickness. Five digits are present. The skin of the dorsal foot is brown variegated. At the lateral aspect there is a firm possibly ulcerated lesion measuring 1.1 x 1.0 cm. Addition as the posterior lateral aspect of the skin there is a brown cecum area measures 5.0 x 4.0 cm The lower leg measures 19 cm in length by 8 cm in diameter. The tibial bone stump is 1.5 cm above the anterior skin margin and the fibial bone stump is 8.8 cm above the soft tissue/ skin margins. The anterior tibia and posterior tibial artery margin appears patent. No significant atherosclerosis identified along the course. The soft tissue as the leg appears edematous. The bone underneath the skin lesion appears viable. q No other discrete lesions identified.representa tive sections are submitted in 8 -------- Specimen: [id number] Received: 10/18/21 Status: SASHA León Num: [id number] Spec Type: Surgical Subm Dr: Reddy Brandt DO Tissues: A Extremity - Amputation, Non-Traumatic (RT LEG) Procedures: HE Stain/8, Gross/Micro L5, Decal -------- Patient: Anai Goodman [id number] (Continued) -------- Specimen: [id number] Received: 10/18/21 (Continued) Gross Description (Continued) Signed (signature on file) Jorge Pastrana MD 10/23/21 1344 -------- Specimen: [id number] Received: 10/18/21 Status: SASHA León Num: [id number] Spec Type: Surgical Subm Dr: Reddy Brandt DO Tissues: A Extremity - Amputation, Non-Traumatic (RT LEG) Procedures: HE Stain/8, Gross/Micro L5, Decal -------- Patient: Anai Goodman [id number] (Continued) -------- Specimen: [id number] Received: 10/18/21 (Continued) Gross Description (Continued) cassettes as follows: A1 - Tibia bone marrow at the margin A2 - Tibial bone marrow at the margin A3 - Anterior tibial vascular margin A4 - Posterior tibial vascular margin A5 - Lateral foot skin lesions A6 - Bone underneath the skin lesion, decal A7 - Posterior tibial vasculature A8 - Skin soft tissue margin Microscopic Description Eight glass slides with H E stained material has been examined. The pathologist's interpretation is performed at [facility]. The microscopic findings support the above pathologic diagnosis. CPT Codes 15397, 90295 -------- -------- Specimen: [id number] Received: 10/18/21 Status: SASHA León Num: [id number] Spec Type: Surgical Subm Dr: Reddy Brandt, DO Tissues: A Extremity - Amputation, Non-Traumatic (RT LEG) Procedures: HE Stain/8, Gr (more content not included)... Normal [facility] Type and Screenon 10-18-2021 ABO and Rh group Nom (Bld) Blood group B Rh(D) negative Normal [facility] Comment on above: Result Comment: PERF ORMED BY: [facility] [address] [place] [address] PATHOLOGIST [employer] STATISTICAL PROGRAMMER SESAR YOST M.D. COVID-19 Positive/NegativeOr dered By: Reddy Brandt on 10-14-2021 SARS-CoV-2 (COVID-19) N gene MEREDITH+probe Ql (Resp) Negative Negative [facility] Comment on above: Testing for SARS-CoV -2 by RT-PCR This test was developed and its performance characteristics determined by [employer] ([place]) and validated at the [facility]. This test has not been FDA cleared or approved. This test has been authorized by FDA under an Emergency Use Authorization (EUA). This test has been validated in accordance with the FDA's Guidance Document (Policy for Diagnostics Testing in Laboratories Certified to Perform High Complexity Testing under CLIA prior to Emergency Use Authorization for Coronavirus Disease-2019 during the Public Health Emergency) issued on July 03, 2019. This test is only authorized for the duration of time the declaration that circumstances exist justifying the authorization of the emergency use of in vitro diagnostic tests for detection of SARS-CoV-2 virus and/or diagnosis of COVID-19 infection under section 564(b)(1) of the Act, 21 U.S.C. 360bbb-3(b)(1), unless the authorization is terminated or revoked sooner. Basophils Auto (Bld) [#/Vol] Ordered By: Reddy Brandt on 10-06-2021 Basophils (Bld) [#/Vol] 0.0 10*3/uL 0.0-0.[address] [facility] Basophils/100 WBC Auto (Bld) Ordered By: Reddy Brandt on 10-06-2021 Basophils/100 WBC (Bld) 0.6 % . [facility] Blood hemoglobin measurement (mass/volume)Ordered By: Reddy Brandt on 10-06-2021 Hemoglobin (Bld) [Mass/Vol] 13.7 g/dL 13.0-17.[address] [facility] Blood leukocytes automated c ount (number/volume)Ordered By: Reddy Brandt on 10-06-2021 WBC (Bld) [#/Vol] 7.8 10*3/uL 4.5-11.0 [facility] Creatinine and Glomerular fi ltration rate.predicted panel (S/P/Bld)Ordered By: Reddy Brandt on 10-06-2021 Creatinine [Mass/Vol] 1.76 mg/dL 0.64-1.[address] [facility] Eosinophils Auto (Bld) [#/Vo l]Ordered By: Reddy Brandt on 10-06-2021 Eosinophils (Bld) [#/Vol] 0.4 10*3/uL 0.0-0.[address] [facility] Eosinophils/100 WBC Auto (Bl d)Ordered By: Reddy Brandt on 10-06-2021 Eosinophils/100 WBC (Bld) 4.9 % . [facility] Erythrocyte distribution wid th Auto (RBC) [Ratio]Ordered By: Reddy Brandt on 10-06-2021 Erythrocyte distribution width (RBC) [Ratio] 18.8 % 12.0-14.[address] [facility] Erythrocyte sedimentation ra te by Photometric methodOrdered By: Reddy Brandt on 10-06-2021 ESR Photometric method (Bld) [Velocity] 21 mm/hr 0-[address] [facility] Estimated glomerular filtrat ion rate (GFR) non- AmericanOrdered By: Reddy Brandt on 10-06-2021 GFR/1.73 sq M.predicted among non-blacks MDRD (S/P/Bld) [Vol rate/Area] 39 mL/Min [facility] Glucose mean value [Mass/vol ume] in Blood Estimated from glycated hemoglobinOrdered By: Reddy Brandt on 10-06-2021 Average glucose Estimated from glycated hemoglobin (Bld) [Mass/Vol] 163 mg/dL [facility] Hematocrit Auto (Bld) [Volum e fraction]Ordered By: Reddy Brandt on 10-06-2021 Hematocrit (Bld) [Volume fraction] 41.1 % 38.8-50.[address] [facility] Hemoglobin A1c percentageOrd ered By: Reddy Brandt on 10-06-2021 HbA1c (Bld) [Mass fraction] 7.3 % 4.3-5.[address] [facility] Comment on above: Increased risk for d iabetes: 5.7 - 6.4 diabetes: >6.4 glycemic control for adults with diabetes: <7.0 Laboratory - Hematology and Cell countsOrdered By: Reddy Brandt on 10-06-2021 Nucleated RBC/100 WBC (Bld) [Ratio] 0.0 % 0-0.[address] [facility] Lymphocytes Auto (Bld) [#/Vo l]Ordered By: Reddy Brandt on 10-06-2021 Lymphocytes (Bld) [#/Vol] 0.8 10*3/uL 1.00-4.[address] [facility] Lymphocytes/100 WBC Auto (Bl d)Ordered By: Reddy Brandt on 10-06-2021 Lymphocytes/100 WBC (Bld) 10.9 % . [facility] MCH Auto (RBC) [Entitic mass ]Ordered By: Reddy Brandt on 10-06-2021 MCH (RBC) [Entitic mass] 28.8 pg 27.5-35.[address] [facility] MCHC Auto (RBC) [Mass/Vol]Or dered By: Reddy Brandt on 10-06-2021 MCHC (RBC) [Mass/Vol] 33.3 g/dL 32.5-35.6 [facility] MCV Auto (RBC) [Entitic vol] Ordered By: Reddy Brandt on 10-06-2021 MCV (RBC) [Entitic vol] 86.3 fL 83.5-101 [facility] Monocytes Auto (Bld) [#/Vol] Ordered By: Reddy Brandt on 10-06-2021 Monocytes (Bld) [#/Vol] 0.9 10*3/uL 0.0-0.[address] [facility] Monocytes/100 WBC Auto (Bld) Ordered By: Reddy Brandt on 10-06-2021 Monocytes/100 WBC (Bld) 11.8 % . [facility] Neutrophils Auto (Bld) [#/Vo l]Ordered By: Reddy Brandt on 10-06-2021 Neutrophils (Bld) [#/Vol] 5.6 10*3/uL 1.8-7.[address] [facility] Neutrophils/100 WBC Auto (Bl d)Ordered By: Reddy Brandt on 10-06-2021 Neutrophils/100 WBC (Bld) 71.8 % . [facility] No Panel InformationOrdered By: Reddy Brandt on 10-06-2021 Estimated GFR () 48 mL/Min [facility] Comment on above: GFR estimated refere nce range: According to KDOQI guidelines, <60 ml/min/1.73m2 is sufficient to diagnose a patient with chronic kidney disease. Pharmacy Creatinine Clearance (Chem N/A [facility] Platelet mean volume Auto (B ld) [Entitic vol]Ordered By: Reddy Brandt on 10-06-2021 Platelet mean volume (Bld) [Entitic vol] 9.1 fL 6.6-10.[address] [facility] Platelets Auto (Bld) [#/Vol] Ordered By: Reddy Brandt on 10-06-2021 Platelets (Bld) [#/Vol] 131 10*3/uL 150-[address] [facility] RBC Auto (Bld) [#/Vol]Ordere d By: Reddy Brandt on 10-06-2021 RBC (Bld) [#/Vol] 4.77 10*6/uL 3.90-5.60 [facility] Serum or plasma C reactive p rotein measurement (mass/volume)Ordered By: Reddy Brandt on 10-06-2021 CRP [Mass/Vol] 0.5 mg/dL 0.0-1.[address] [facility] Serum or plasma chloride zofia surement (moles/volume)Ordered By: Reddy Brandt on 10-06-2021 Chloride [Moles/Vol] 93 mmol/L 95-114 [facility] Serum or plasma potassium me asurement (moles/volume)Ordered By: Reddy Brandt on 10-06-2021 Potassium [Moles/Vol] 3.8 mmol/L 3.5-5.[address] [facility] Serum or plasma sodium measu rement (moles/volume)Ordered By: Reddy Brandt on 10-06-2021 Sodium [Moles/Vol] 139 mmol/L 136-146 [facility] Serum or plasma total carbon dioxide measurement (moles/volume)Ordered By: Reddy Brandt on 10-06-2021 CO2 [Moles/Vol] 31.4 mmol/L 22.0-30.0 [facility] Serum or plasma urea nitroge n measurement (mass/volume)Ordered By: Reddy Brandt on 10-06-2021 Urea nitrogen [Mass/Vol] 52 mg/dL 9- [facility] WOUND CULTUREon 09-12-2021 Bacteria identified Aer cx Nom (Unsp spec) Final report Normal [facility] Comment on above: Performed By: #### C XWND ####[facility] [address] [place] [address]Dr. Anjali Reagan Result 1 Mixed skin areli Normal [facility] Comment on above: Performed By: #### C XWND ####[facility] [address] [place] [phone] Reagan CBC AUTO DIFFon 09-09-2021 BASO # 0.0 103/ul Normal 0.0-0.1 [facility] Comment on above: Performed By: #### C BC ####[facility] Cc[address]xh[address] [place] [address]DrVeronica Reagan Basophils/100 WBC (Bld) 0.6 % Normal 0.2-2.0 [facility] Comment on above: Performed By: #### C BC ####[facility] [address]f60[address] [place] [address]DrVeronica Reagan EO # 0.3 103/ul Normal 0.0-0.7 [facility] Comment on above: Performed By: #### C BC ####[facility] Yxy[address]lrth3247 [place] [address]Dr. Anjali Tez Eosinophils/100 WBC (Bld) 4.1 % Normal 0.9-7.0 [facility] Comment on above: Performed By: #### C BC ####[facility] [address] [place], [place] [address]Dr. Anjali Reagan Erythrocyte distribution width (RBC) [Ratio] 16.1 % Critically high 11.0-15.0 [facility] Comment on above: Performed By: #### C BC ####[facility] [address] [place], [place] [address]Dr. Anjali Reagan Hematocrit (Bld) [Volume fraction] 38.3 % Critically low 42.0-54.0 [facility] Comment on above: Performed By: #### C BC ####[facility] [address] [place], [place] [address]Dr. Anjali Reagan Hemoglobin (Bld) [Mass/Vol] 12.0 g/dL Critically low 14.0-18.0 [facility] Comment on above: Performed By: #### C BC ####[facility] [address] [place], [place] [address]Dr. Anjali Reagan IG # 0.04 10e3/ul Critically high 0.00-0.03 [facility] Comment on above: Performed By: #### C BC ####[facility] Axc[address]soq[address] [place], [place] [address]Dr. Anjali Reagan IG % 0.6 % Critically high 0.0-0.5 [facility] Comment on above: Performed By: #### C BC ####[facility] [address] [place], [place] [address]DrVeronica Reagan LYMPH # 0.9 103/ul Critically low 1.2-3.8 [facility] Comment on above: Performed By: #### C BC ####[facility] [address] [place], [place] [address]DrVeronica Reagan Lymphocytes/100 WBC (Bld) 12.6 % Critically low 20.5-60.0 [facility] Comment on above: Performed By: #### C BC ####[facility] G[address] [place] [address]DrVeronica Reagan MANUAL DIFF REQ NO Normal [facility] Comment on above: Performed By: #### C BC ####[facility] [address]rkxort[address] [place] [address]DrVeronica Reagan MCH (RBC) [Entitic mass] 27.5 pg Normal 25.9-34.0 [facility] Comment on above: Performed By: #### C BC ####[facility] F[address] [place], [place] [address]DrVeronica Reagan MCHC (RBC) [Mass/Vol] 31.3 g/dL Normal 29.9-35.2 [facility] Comment on above: Performed By: #### C BC ####[facility] [address]xfos[address] [place], [place] [address]DrVeronica Reagan MCV (RBC) [Entitic vol] 87.6 fL Normal 80.0-94.0 [facility] Comment on above: Performed By: #### C BC ####[facility] [address] [place], [place] [address]DrVeronica Reagan MONO # 0.7 103/ul Normal 0.3-0.8 [facility] Comment on above: Performed By: #### C BC ####[facility] [address]ygcne[address] [place], [place] [address]DrVeronica Reagan Monocytes/100 WBC (Bld) 10.3 % Normal 1.7-12.0 [facility] Comment on above: Performed By: #### C BC ####[facility] [address] [place], [place] [address]DrVeronica Reagan NEUT # 5.1 103/ul Normal 1.4-6.5 [facility] Comment on above: Performed By: #### C BC ####[facility] [address] [place], [place] [address]DrVeronica Reagan Neutrophils/100 WBC (Bld) 71.8 % Normal 43.0-75.0 [facility] Comment on above: Performed By: #### C BC ####[facility] [address]csypv[address] [place], [place] [address]Dr. Anjali Reagan Platelet mean volume (Bld) [Entitic vol] 9.4 fL Critically low 9.5-13.5 [facility] Comment on above: Performed By: #### C BC ####[facility] [address]un[address] [place], [place] [address]Dr. Anjali Reagan PLT 249 103/ul Normal 150-450 [facility] Comment on above: Performed By: #### C BC ####[facility] [address] [place], [place] [address]Dr. Anjali Reagan RBC 4.37 106/ul Critically low 4.70-6.10 [facility] Comment on above: Performed By: #### C BC ####[facility] [address] [place], [place] [address]Dr. Anjali Reagan WBC 7.1 103/ul Normal 4.0-11.0 [facility] Comment on above: Performed By: #### C BC ####[facility] [address]ft[address] [place], [place] [address]Dr. Anjali Reagan CRPon 09-09-2021 CRP 1.9 mg/dL Critically high <=1.0 [facility] Comment on above: Performed By: #### C RP, CMP ####[facility] [address] [place], [place] [address]Dr. Anjali Reagan GRAM STAINon 09-09-2021 COMMENTS NO ORGANISMS OBSERVED Normal [facility] Comment on above: Performed By: #### G STAIN ####[facility] [address] [place], [place] [address]Dr. Anjali Tez DIPHTHEROIDS Normal [facility] Comment on above: Performed By: #### G STAIN ####[facility] [address] [place], [place] [address]Dr. Anjali Reagan EPITHELIALS Normal [facility] Comment on above: Performed By: #### G STAIN ####[facility] [address] [place] [phone]. Anjali Reagan FUNGAL ELEMENTS Normal [facility] Comment on above: Performed By: #### G STAIN ####[facility] [address] [place] [phone]. Anjali Reagan GRAM NEG BACILLI Normal [facility] Comment on above: Performed By: #### G STAIN ####[facility] [address] [place] [phone]. Anjali Reagan GRAM NEG DIPPLOCOCCI Normal [facility] Comment on above: Performed By: #### G STAIN ####[facility] [address] [place] [address]Dr. Anjali Reagan GRAM POS BACILLI Normal [facility] Comment on above: Performed By: #### G STAIN ####[facility] R[address] [place] [address]Dr. Anjali Reagan GRAM POSITIVE COCCI Normal [facility] Comment on above: Performed By: #### G STAIN ####[facility] [address]cosms[address] [place] [address]Dr. Anjali Reagan GRAM STAIN SOURCE Left foot lateral Normal [facility] Comment on above: Performed By: #### G STAIN ####[facility] [address]fs[address] [place] [address]Dr. Anjali Reagan GS_DIPTH Normal [facility] Comment on above: Performed By: #### G STAIN ####[facility] [address] [place], [place] [address]Dr. Anjali Reagan WBC RARE Normal [facility] Comment on above: Performed By: #### G STAIN ####[facility] [address] [place] [phone]. Anjali Reagan PROF 14(COMP METB)on 022 Albumin [Mass/Vol] 3.5 g/dL Normal 3.4-5.0 [facility] Comment on above: Performed By: #### C RP, CMP ####[facility] J[address] [place], [place] [address]Dr. Anjali Reagan Albumin/Globulin [Mass ratio] 0.8 {ratio} Normal [facility] Comment on above: Performed By: #### C RP, CMP ####[facility] [address] [place] [address]Dr. Anjali Reagan ALP [Catalytic activity/Vol] 136 U/L Critically high 46-116 [facility] Comment on above: Performed By: #### C RP, CMP ####[facility] [address] [place] [address]Dr. Anjali Reagan ALT [Catalytic activity/Vol] 34 U/L Normal 16-63 [facility] Comment on above: Performed By: #### C RP, CMP ####[facility] Q[address]hs[address] [place] [address]Dr. Anjali Reagan Anion gap [Moles/Vol] 12.9 mmol/L Normal [facility] Comment on above: Performed By: #### C RP, CMP ####[facility] [address] [place], [place] [address]Dr. Anjali Reagan AST [Catalytic activity/Vol] 27 U/L Normal 15-37 [facility] Comment on above: Performed By: #### C RP, CMP ####[facility] [address] [place], [place] [address]Dr. Anjali Reagan Bilirubin [Mass/Vol] 0.4 mg/dL Normal 0.2-1.0 [facility] Comment on above: Performed By: #### C RP, CMP ####[facility] Fyhmvdcghm40[address] [place] [address]Dr. Anjali Reagan Calcium [Mass/Vol] 9.7 mg/dL Normal 8.5-10.1 [facility] Comment on above: Performed By: #### C RP, CMP ####[facility] Rasjlinfvz[address] [place] [address]Dr. Anjali Reagan Chloride [Moles/Vol] 103 mmol/L Normal 98-107 [facility] Comment on above: Performed By: #### C RP, CMP ####[facility] Zcohqcumhb4595 [place] [address]Dr. Anjali Reagan CO2 [Moles/Vol] 28.9 mmol/L Normal 21.0-32.0 [facility] Comment on above: Performed By: #### C RP, CMP ####[facility] Rnuugoxoyk48[address] [place] [address]Dr. Anjali Reagan Creatinine [Mass/Vol] 1.57 mg/dL Critically high 0.70-1.30 [facility] Comment on above: Performed By: #### C RP, CMP ####[facility] Gmtdsiffkb9201 [place] [address]Dr. Anjali Reagan EGFR-AF TONGAN 54 mL/min/1.73m2 Critically low >=60 [facility] Comment on above: Performed By: #### C RP, CMP ####[facility] [address]hirh[address] [place], [place] [address]Dr. Anjali Reagan EGFR-NON AF TONGAN 45 mL/min/1.73m2 Critically low >=60 [facility] Comment on above: Performed By: #### C RP, CMP ####[facility] Beybernvdf[address] [place], [place] [address]Dr. Anjali Reagan Globulin (S) [Mass/Vol] 4.5 g/dL Normal [facility] Comment on above: Performed By: #### C RP, CMP ####[facility] Tgfhwspysr69[address] [place] [address]Dr. Anjali Reagan Glucose [Mass/Vol] 174 mg/dL Critically high 74-106 [facility] Comment on above: Performed By: #### C RP, CMP ####[facility] Syhottziir[address] [place] [address]Dr. Anjali Reagan Potassium [Moles/Vol] 4.8 mmol/L Normal 3.5-5.1 [facility] Comment on above: Performed By: #### C RP, CMP ####[facility] Vzpdempyke54[address] [place] [address]Dr. Anjali Reagan Protein [Mass/Vol] 8.0 g/dL Normal 6.4-8.2 [facility] Comment on above: Performed By: #### C RP, CMP ####[facility] Yoywhmqiwv9774 [place] [phone]. Anjali Tez Sodium [Moles/Vol] 140 mmol/L Normal 136-145 [facility] Comment on above: Performed By: #### C RP, CMP ####[facility] Logjzwhdur8949 [place] [phone]. Anjali Reagan Urea nitrogen [Mass/Vol] 34.0 mg/dL Critically high 7.0-18 .0 [facility] Comment on above: Performed By: #### C RP, CMP ####[facility] Njnkptmacg6091 [place] [phone]. Anjali Reagan Urea nitrogen/Creatinine [Mass ratio] 21.7 mg/mg Normal [facility] Comment on above: Performed By: #### C RP, CMP ####[facility] Ecqjxtagnz87[address] [place] [address]Dr. Anjali Reagan XR FOOT RT MIN 3 VIEWSon XR FOOT RT MIN 3 VIEWS Normal [facility] XR ANKLE RT MIN 3 VIEWSon XR ANKLE RT MIN 3 VIEWS Normal [facility] CULTURE BLOODon 08-26-2021 Microscopic examination of blood, culture Culture Observations: NO GROWTH AT 5 DAYS. Normal [facility] Comment on above: Performed By: #### B LDCX2 ####[facility] Nccntzvgqc1875 [place] [address]Dr. Biancaramona Tez Microscopic examination of blood, culture Culture Observations: NO GROWTH AT 5 DAYS. Normal [facility] Comment on above: Performed By: #### B LDCX1 ####[facility] Kabxrgcnql7845 [place] [phone]. Anjali Reagan PREALBUMINon 08-26-2021 Prealbumin [Mass/Vol] 14 mg/dL Normal - [facility] Comment on above: Performed By: #### P REALBL ####[facility] Cvdiynrubv26[address] [place] [address]Dr. Anjali Tez CBC W MANUAL DIFFon 08-25-19 ANISOCYTOSIS SLIGHT Normal [facility] Comment on above: Performed By: #### C BCMAN ####[facility] Ellxtchlmj5274 [place] [phone]. Yiramona Reagan ATYPICAL LYMPH # Normal [facility] Comment on above: Performed By: #### C BCMAN ####[facility] Ynpxojvojs6165 [place] [phone]. Yiramona Reagan ATYPICAL LYMPH % Normal [facility] Comment on above: Performed By: #### C BCMAN ####[facility] Zkhcjvungr08[address] [place] [address]Dr. Yilan Reagan BAND # Normal 0.0-0.3 [facility] Comment on above: Performed By: #### C BCMAN ####[facility] Pbrrlcsech6[address] [place] [address]Dr. Yilan Reagan BAND % Normal 0-5 [facility] Comment on above: Performed By: #### C BCFIONA ####[facility] Zlgkfmysoj[address] [place], [place] [address]Dr. Anjali Reagan BASOM # 0.00 103/ul Normal 0.00-0.10 [facility] Comment on above: Performed By: #### C BCFIONA ####[facility] Bnshvkkcdh6[address] [place] [address]Dr. Anjali Reagan BASOM % 0.0 % Critically low 0.2-2.0 [facility] Comment on above: Performed By: #### C BCFIONA ####[facility] Iewxjgvyuu5[address] [place] [address]Dr. Biancalan Reagan BLAST # Normal [facility] Comment on above: Performed By: #### C BCFIONA ####[facility] Gzcjiflrni4398 [place] [address]Dr. Biancalan Reagan BLAST % Normal [facility] Comment on above: Performed By: #### C BCMAN ####[facility] Kbzgpgormr4564 [place] [address]Dr. Anjali Reagan CORRECTED WBC Normal 4.0-11.0 [facility] Comment on above: Performed By: #### C BCFIONA ####[facility] [address]ch[address]qtso[address] [place], [place] [address]Dr. Anjali Reagan EOS # 0.34 103/ul Normal 0.00-0.70 [facility] Comment on above: Performed By: #### C CORI ####[facility] Vmlilvtplh7732 [place] [phone]. Anjali Reagan EOS% 3.0 % Normal 0.9-7.0 [facility] Comment on above: Performed By: #### C CORI ####[facility] Itxwlvexyy7888 [place] [phone]. Anjali Reagan HCT 36.2 % Critically low 42.0-54.0 [facility] Comment on above: Performed By: #### C CORI ####[facility] Jwgsujrjsa8229 [place] [address]Dr. Anjali Reagan HGB 11.8 g/dl Critically low 14.0-18.0 [facility] Comment on above: Performed By: #### Uzair PERSAUD ####[facility] Rafktwanyj36[address] [place] [address]Dr. Anjali Reagan LYMPHM # 1.03 103/ul Critically low 1.20-3.80 [facility] Comment on above: Performed By: #### Uzair PERSAUD ####[facility] Hsxttyqofn9695 [place] [phone]. Anjali Reagan LYMPHM% 9.0 % Critically low 20.5-60.0 [facility] Comment on above: Performed By: #### Uzair PERSAUD ####[facility] Pblwjkzbyy8103 [place] [phone]. Anjali Reagan MCH 28.0 pg Normal 25.9-34.0 [facility] Comment on above: Performed By: #### C CORI ####[facility] Sbnijjakjz8085 [place] [phone]. Anjali Reagan MCHC 32.6 g/dl Normal 29.9-35.2 [facility] Comment on above: Performed By: #### C CORI ####[facility] Atmnjddwkr1464 [place] [phone]. Anjali Reagan MCV 85.8 fL Normal 80.0-94.0 [facility] Comment on above: Performed By: #### C CORI ####[facility] Qinavodohe6103 [place] [phone]. Anjali Reagan METAMYELOCYTE # Normal [facility] Comment on above: Performed By: #### C CORI ####[facility] Vxokbnyzkx4859 [place], [place] [address]Im. Anjali Reagan METAMYELOCYTE % Normal [facility] Comment on above: Performed By: #### C CORI ####[facility] Qpgprgsawa2168 [place] [phone]. Anjali Reagan MONOM# 1.61 103/ul Critically high 0.30-0.80 [facility] Comment on above: Performed By: #### C CORI ####[facility] Ihcoxtxicm2565 [place] [phone]. Anjali Reagan MONOM% 14.0 % Critically high 1.7-12.0 [facility] Comment on above: Performed By: #### C CORI ####[facility] Etvqcupqmk7950 [place] [phone]. Anjali Reagan MPV 8.9 fL Critically low 9.5-13.5 [facility] Comment on above: Performed By: #### C CORI ####[facility] Qredebpuhi1420 [place] [phone]. Anjali Reagan MYELOCYTE # Normal [facility] Comment on above: Performed By: #### C CORI ####[facility] Gnacheuyxx4153 [place] [phone]. Anjali Reagan MYELOCYTE % Normal [facility] Comment on above: Performed By: #### C CORI ####[facility] Wsfixknalq0213 [place] [phone]. Anjali Reagan NRBC Normal [facility] Comment on above: Performed By: #### C CORI ####[facility] Qjvrkwoquz5270 [place] [phone]. Biancaramona Reagan PLT 263 103/ul Normal 150-450 [facility] Comment on above: Performed By: #### C CORI ####[facility] Bnhgoicvrq8548 [place], [place] [address]By. Anjali Tez RBC 4.22 106/ul Critically low 4.70-6.10 [facility] Comment on above: Performed By: #### C CORI ####[facility] Ffquafrlxn0358 [place], [place] [address]Mu. Anjali Tez RDW 16.0 % Critically high 11.0-15.0 [facility] Comment on above: Performed By: #### C CORI ####[facility] Rrdmataxce5710 [place], [place] [address]Vz. Anjali Tez SEG # 8.51 103/ul Critically high 1.40-6.50 [facility] Comment on above: Performed By: #### C CORI ####[facility] Efobkydelb0607 [place] [phone]. Anjali Reagan SEG % 74.0 % Normal 43.0-75.0 [facility] Comment on above: Performed By: #### C CORI ####[facility] Ihqixwnglx9558 [place], [place] [address]In. Biancaramona Tez WBC 11.5 103/ul Critically high 4.0-11.0 [facility] Comment on above: Performed By: #### Uzair PERSAUD ####[facility] Iwdqhzpnka6117 [place] [phone]. Anjali Reagan CRPon 08-24-2021 CRP 11.6 mg/dL Critically high <=1.0 [facility] Comment on above: Performed By: #### C RP, CMP ####[facility] Ywnueehxib1337 [place], [place] [address]Ne. Anjali Reagan PROF 14(COMP METB)on 022 Albumin [Mass/Vol] 3.2 g/dL Critically low 3.4-5.0 e [facility] Comment on above: Performed By: #### C RP, CMP ####[facility] Hkvlxzqaab4055 [place] [phone]. Anjali Reagan Albumin/Globulin [Mass ratio] 0.7 {ratio} Normal [facility] Comment on above: Performed By: #### C RP, CMP ####[facility] Cohcseszgb9821 [place] [address]Dr. Anjali Tez ALP [Catalytic activity/Vol] 107 U/L Normal 46-116 [facility] Comment on above: Performed By: #### C RP, CMP ####[facility] Jizwjleuly2410 [place] [address]Dr. Anjali Reagan ALT [Catalytic activity/Vol] 57 U/L Normal 16-63 [facility] Comment on above: Performed By: #### C RP, CMP ####[facility] Btyzsigayi4[address] [place], [place] [address]Dr. Anjali Reagan Anion gap [Moles/Vol] 13.7 mmol/L Normal [facility] Comment on above: Performed By: #### C RP, CMP ####[facility] Opjgtznapr05[address] [place], [place] [address]Dr. Anjali Reagan AST [Catalytic activity/Vol] 40 U/L Critically high 15-37 [facility] Comment on above: Performed By: #### C RP, CMP ####[facility] Pligviyvdt[address] [place], [place] [address]Dr. Anjali Reagan Bilirubin [Mass/Vol] 0.6 mg/dL Normal 0.2-1.0 [facility] Comment on above: Performed By: #### C RP, CMP ####[facility] Plbuhleojk7[address] [place], [place] [address]Dr. Anjali Reagan Calcium [Mass/Vol] 9.7 mg/dL Normal 8.5-10.1 [facility] Comment on above: Performed By: #### C RP, CMP ####[facility] Zqgyptvqmn52[address] [place], [place] [address]Dr. Anjali Reagan Chloride [Moles/Vol] 98 mmol/L Normal 98-107 [facility] Comment on above: Performed By: #### C RP, CMP ####[facility] Pcpzntblzg[address] [place], [place] [address]Dr. Yilan Reagan CO2 [Moles/Vol] 30.0 mmol/L Normal 21.0-32.0 [facility] Comment on above: Performed By: #### C RP, CMP ####[facility] Xsicpdhcuh8375 [place] [address]Dr. Anjali Reagan Creatinine [Mass/Vol] 1.73 mg/dL Critically high 0.70-1.30 [facility] Comment on above: Performed By: #### C RP, CMP ####[facility] Yjwiiewnmi79[address] [place], [place] [address]Dr. Anjali Reagan EGFR-AF TONGAN 49 mL/min/1.73m2 Critically low >=60 [facility] Comment on above: Performed By: #### C RP, CMP ####[facility] Cuuxkpttjj[address] [place], [place] [address]Dr. Anjali Reagan EGFR-NON AF TONGAN 40 mL/min/1.73m2 Critically low >=60 [facility] Comment on above: Performed By: #### C RP, CMP ####[facility] Iturpvljkv6232[address] [place], [place] [address]Dr. Anjali Reagan Globulin (S) [Mass/Vol] 4.7 g/dL Normal [facility] Comment on above: Performed By: #### C RP, CMP ####[facility] Mtqomdjckx39[address] [place], [place] [address]Dr. Anjali Reagan Glucose [Mass/Vol] 92 mg/dL Normal 74-106 [facility] Comment on above: Performed By: #### C RP, CMP ####[facility] Ffhddltgaa65[address] [place], [place] [address]Dr. Anjali Reagan Potassium [Moles/Vol] 3.7 mmol/L Normal 3.5-5.1 [facility] Comment on above: Performed By: #### C RP, CMP ####[facility] Jeluavomxh[address] [place], [place] [address]Dr. Anjali Reagan Protein [Mass/Vol] 7.9 g/dL Normal 6.4-8.2 [facility] Comment on above: Performed By: #### C RP, CMP ####[facility] Xbmqkvdnbq3947 [place] [phone]. Anjali Reagan Sodium [Moles/Vol] 138 mmol/L Normal 136-145 [facility] Comment on above: Performed By: #### C RP, CMP ####[facility] Brpv[address]edlo[address] [place], [place] [address]Dr. Anjali Reagan Urea nitrogen [Mass/Vol] 50.0 mg/dL Critically high 7.0-18 .0 [facility] Comment on above: Performed By: #### C RP, CMP ####[facility] Cihcvgbkoo4932 [place] [phone]. Anjali Reagan Urea nitrogen/Creatinine [Mass ratio] 28.9 mg/mg Normal [facility] Comment on above: Performed By: #### C RP, CMP ####[facility] Mzpgkg[address]ok[address] [place], [place] [address]Dr. Anjali Reagan SED RATE [facility] 2021 SED RATE 17 mm/hr Normal <=20 [facility] Comment on above: Performed By: #### S EDR ####[facility] [address]mwrnfvggl[address] [place], [place] [address]Dr. Anjali Reagan CBC (INCLUDES DIFF/PLT)on Basophils (Bld) [#/Vol] 0.034 10*3/uL Normal 0-200 [facility] Comment on above: Performed By: #### 6 399, 496, 718, 03739 #### [facility] [place] [address] Medical Services Coordinator: Juan Meraz MD Basophils/100 WBC (Bld) 0.3 % Normal [facility] Comment on above: Performed By: #### 6 399, 496, 718, 17506 #### [facility] [place] [address] Medical Services Coordinator: Juan Meraz MD Eosinophils (Bld) [#/Vol] 0.023 10*3/uL Normal 15-500 [facility] Comment on above: Performed By: #### 6 399, 496, 718, 88659 #### [facility] of [place] [address] Medical Services Coordinator: Juan Meraz MD Eosinophils/100 WBC (Bld) 0.2 % Normal [facility] Comment on above: Performed By: #### 6 399, 496, 718, 95519 #### [facility] of [place] [address] Medical Services Coordinator: Juan Meraz MD Erythrocyte distribution width (RBC) [Ratio] 15.6 % High 11.0-15.0 [facility] Comment on above: Performed By: #### 6 399, 496, 718, 24019 #### [facility] of [place] [address] Medical Services Coordinator: Juan Meraz MD Hematocrit (Bld) [Volume fraction] 38.9 % Normal 38.5-50.0 [facility] Comment on above: Performed By: #### 6 399, 496, 718, 15044 #### [facility] of [place] [address] Medical Services Coordinator: Juan Meraz MD Hemoglobin (Bld) [Mass/Vol] 12.7 g/dL Low 13.2-17.1 [facility] Comment on above: Performed By: #### 6 399, 496, 718, 88800 #### [facility] of [place] [address] Medical Services Coordinator: Juan Meraz MD Lymphocytes (Bld) [#/Vol] 0.531 10*3/uL Low 850-3900 [facility] Comment on above: Performed By: #### 6 399, 496, 718, 31316 #### [facility] of [place] [address] Medical Services Coordinator: Juan Meraz MD Lymphocytes/100 WBC (Bld) 4.7 % Normal [facility] Comment on above: Performed By: #### 6 399, 496, 718, 37455 #### [facility] of [address] [place] [address] Medical Services Coordinator: Juan Meraz MD MCH (RBC) [Entitic mass] 28.2 pg Normal 27.0-33.0 [facility] Comment on above: Performed By: #### 6 399, 496, 718, 79263 #### [facility] of [place] [address] Medical Services Coordinator: Juan Meraz MD MCHC (RBC) [Mass/Vol] 32.6 g/dL Normal 32.0-36.[address] [facility] Comment on above: Performed By: #### 6 399, 496, 718, 17177 #### [facility] of [place] [address] Medical Services Coordinator: Juan Meraz MD MCV (RBC) [Entitic vol] 86.4 fL Normal 80.0-100.0 [facility] Comment on above: Performed By: #### 6 399, 496, 718, 63713 #### [facility] of [place] [address] Medical Services Coordinator: Juan Meraz MD Monocytes (Bld) [#/Vol] 1.119 10*3/uL High 200-950 [facility] Comment on above: Performed By: #### 6 399, 496, 718, 28655 #### [facility] of [place] [address] Medical Services Coordinator: Juan Meraz MD Monocytes/100 WBC (Bld) 9.9 % Normal [facility] Comment on above: Performed By: #### 6 399, 496, 718, 63239 #### [facility] of [place] [address] Medical Services Coordinator: Juan Meraz MD Neutrophils (Bld) [#/Vol] 9.594 10*3/uL High 0607-5075 [facility] Comment on above: Performed By: #### 6 399, 496, 718, 53596 #### [facility] of [place] [address] [place] [address] Medical Services Coordinator: Juan Meraz MD Neutrophils/100 WBC (Bld) 84.9 % Normal [facility] Comment on above: Performed By: #### 6 399, 496, 718, 23741 #### [facility] [place] [address] Medical Services Coordinator: Juan Meraz MD Platelet mean volume (Bld) [Entitic vol] 10.1 fL Normal 7.5-12.5 [facility] Comment on above: Performed By: #### 6 399, 496, 718, 74595 #### [facility] [place] [address] Medical Services Coordinator: Juan Meraz MD Platelets (Bld) [#/Vol] 267 10*3/uL Normal 140-400 [facility] Comment on above: Performed By: #### 6 399, 496, 718, 94513 #### [facility] [place] [address] Medical Services Coordinator: Juan Meraz MD RBC (Bld) [#/Vol] 4.50 10*6/uL Normal 4.20-5.80 [facility] Comment on above: Performed By: #### 6 399, 496, 718, 54931 #### [facility] [place] [address] Medical Services Coordinator: Juan Meraz MD WBC (Bld) [#/Vol] 11.3 10*3/uL High 3.8-10.8 [facility] Comment on above: Performed By: #### 6 399, 496, 718, 70256 #### [facility] [place] [address] Medical Services Coordinator: Juan Meraz MD HEMOGLOBIN A1con 08-23-2021 HEMOGLOBIN A1c 7.7 % of total Hgb High <5.7 [facility] Comment on above: Result Comment: For someone without known diabetes, a hemoglobin A1c value of 6.5% or greater indicates that they may have diabetes and this should be confirmed with a follow-up test. For someone with known diabetes, a value <7% indicates that their diabetes is well controlled and a value greater than or equal to 7% indicates suboptimal control. A1c targets should be individualized based on duration of diabetes, age, comorbid conditions, and other considerations. Currently, no consensus exists regarding use of hemoglobin A1c for diagnosis of diabetes for children. Performed By: #### 6 399, 496, 718, 70082 #### [facility] [address], [address] [place] [address] Medical Services Coordinator: Juan Meraz MD PHOSPHATE ( PHOSPHORUS)on 08-23-2021 Phosphate [Mass/Vol] 3.7 mg/dL Normal 2.5-4.5 [facility] Comment on above: Order Comment: PATIE NT UNABLE TO VOID; ADVISED TO RETURN FOR COLLECTION. Performed By: #### 6 399, 496, 718, 13090 #### [facility] [address], [address] [place] [address] Medical Services Coordinator: Juan Meraz MD PTH, INTACT WITHOUT CALCIUMo n 08-23-2021 PARATHYROID HORMONE, INTACT 6 pg/mL Low 16-77 [facility] Comment on above: Result Comment: Interpretive Guide Intact PTH Calcium ------- Normal Parathyroid Normal Normal Hypoparathyroidism Low or Low Normal Low Hyperparathyroidism Primary Normal or High High Secondary High Normal or Low Tertiary High High Non-Parathyroid Hypercalcemia Low or Low Normal High Performed By: #### 6 399, 496, 718, 94732 #### [facility] [address], [address] [place], [place] [id number] Medical Services Coordinator: Juan Meraz MD VITAMIN D,25-OH,TOTAL,IAon 0 08-23-2021 VITAMIN D,25-OH,TOTAL,IA 55 ng/mL Normal 30-100 [facility] Comment on above: Result Comment: Nan min D Status 25-OH Vitamin D: Deficiency: <20 ng/mL Insufficiency: 20 - 29 ng/mL Optimal: > or = 30 ng/mL For 25-OH Vitamin D testing on patients on D2-supplementation and patients for whom quantitation of D2 and D3 fractions is required, the QuestAssureD(TM) 25-OH VIT D, (D2,D3), LC/MS/MS is recommended: order code 03823 (patients >2yrs). See Note 1 Note 1 For additional information, please refer to http://education.[employer]/faq/OOF463 (This link is being provided for informational/ educational purposes only.) Performed By: #### 6 399, 496, 718, 56047 #### [facility] [address] [facility], [address] [place] [address] Medical Services Coordinator: Juan Meraz MD CBC W MANUAL DIFFon 07-06-19 22 ATYPICAL LYMPH # Normal [facility] Comment on above: Performed By: #### C CORI ####[facility] Hqknubltyv7372 [place] [address]Dr. Biancalan Reagan ATYPICAL LYMPH % Normal [facility] Comment on above: Performed By: #### C CORI ####[facility] Axwhvrdovo8302 [place] [address]Dr. Yilan Reagan BAND # 0.1 103/ul Normal 0.0-0.3 [facility] Comment on above: Performed By: #### C SAUMYAMAN ####[facility] Lrbbeetxds0246 [place] [address]Dr. Yilan Reagan BAND % 1 % Normal 0-5 [facility] Comment on above: Performed By: #### C CORI ####[facility] Ckwguqcyby8974 [place] [address]Dr. Yilan Reagan BASOM # 0.00 103/ul Normal 0.00-0.10 [facility] Comment on above: Performed By: #### C CORI ####[facility] Jfbuxlymsj7160 [place] [address]Dr. Biancalan Reagan BASOM % 0.0 % Critically low 0.2-2.0 [facility] Comment on above: Performed By: #### C CORI ####[facility] [address] [place], [place] [address]Dr. Anjali Reagan BLAST # Normal [facility] Comment on above: Performed By: #### C BCFIONA ####[facility] Ztuxmzpwsq0741 [place] [phone]. Anjali Reagan BLAST % Normal [facility] Comment on above: Performed By: #### C BCFIONA ####[facility] Xvbyhkzckg0200 [place] [address]Dr. Anjali Reagan CORRECTED WBC Normal 4.0-11.0 [facility] Comment on above: Performed By: #### C CORI ####[facility] Pzjbqmglra5561 [place] [address]Dr. Anjali Reagan EOS # 0.16 103/ul Normal 0.00-0.70 [facility] Comment on above: Performed By: #### C CORI ####[facility] Mymlrijnld[address] [place], [place] [address]Dr. Anjali Reagan EOS% 2.0 % Normal 0.9-7.0 [facility] Comment on above: Performed By: #### C CORI ####[facility] Hvefferuok8374 [place] [address]Dr. Anjali Reagan HCT 35.3 % Critically low 42.0-54.0 [facility] Comment on above: Performed By: #### C CORI ####[facility] Ldqcuzibxc2986 [place] [address]Dr. Anjali Reagan HGB 11.4 g/dl Critically low 14.0-18.0 [facility] Comment on above: Performed By: #### C BCFIONA ####[facility] Ysjxqaukaj1552 [place] [address]Dr. Anjali Reagan LYMPHM # 0.70 103/ul Critically low 1.20-3.80 [facility] Comment on above: Performed By: #### C BCFIONA ####[facility] Lhzmikgbgy9746 [place] [address]Dr. Anjali Reagan LYMPHM% 9.0 % Critically low 20.5-60.0 [facility] Comment on above: Performed By: #### C CORI ####[facility] Irnvygrpet5677 [place], [place] [address]Ah. Anjali Reaagn MCH 27.5 pg Normal 25.9-34.0 [facility] Comment on above: Performed By: #### C CORI ####[facility] Borfxqlhce9597 [place], [place] [address]Dr. Anjali Reagan MCHC 32.3 g/dl Normal 29.9-35.2 [facility] Comment on above: Performed By: #### C CORI ####[facility] Lyfjojufsv5974 [place] [phone]. Anjali Reagan MCV 85.3 fL Normal 80.0-94.0 [facility] Comment on above: Performed By: #### C CORI ####[facility] Aifxidlbfi4143 [place] [phone]. Anjali Reagan METAMYELOCYTE # Normal [facility] Comment on above: Performed By: #### C CORI ####[facility] Jnsybymkbi0319 [place] [phone]. Anjali Reagan METAMYELOCYTE % Normal [facility] Comment on above: Performed By: #### C CORI ####[facility] Vungyruytr1836 [place] [phone]. Anjali Reagan MONOM# 1.09 103/ul Critically high 0.30-0.80 [facility] Comment on above: Performed By: #### C CORI ####[facility] Nasvqiedfs7380 [place] [phone]. Anjali Reagan MONOM% 14.0 % Critically high 1.7-12.0 [facility] Comment on above: Performed By: #### C CORI ####[facility] Bdsddovpdp8387 [place] [address]Dr. Anjali Reagan MPV 9.6 fL Normal 9.5-13.5 [facility] Comment on above: Performed By: #### C CORI ####[facility] Lrafuysrjo[address] [place], [place] [address]Dr. Anjali Reagan MYELOCYTE # Normal [facility] Comment on above: Performed By: #### C CORI ####[facility] Kylonwmawh0191 [place] [phone]. Anjali Reagan MYELOCYTE % Normal [facility] Comment on above: Performed By: #### C CORI ####[facility] Acmyybcfse3431 [place], [place] [address]Et. Anjali Reagan NRBC Normal [facility] Comment on above: Performed By: #### C CORI ####[facility] Nsarspmoul9507 [place] [phone]. Anjali Reagan PLT 119 103/ul Critically low 150-450 [facility] Comment on above: Performed By: #### C CORI ####[facility] Gxbsumpfah6681 [place] [phone]. Anjali Reagan RBC 4.14 106/ul Critically low 4.70-6.10 [facility] Comment on above: Performed By: #### C CORI ####[facility] Hojiodexnw[address] [place], [place] [address]Dr. Anjali Reagan RDW 16.1 % Critically high 11.0-15.0 [facility] Comment on above: Performed By: #### C CORI ####[facility] Gjcownboyo[address] [place], [place] [address]Dr. Anjali Reagan SEG # 5.77 103/ul Normal 1.40-6.50 [facility] Comment on above: Performed By: #### C CORI ####[facility] Rfpkjtrenz0660 [place] [phone]. Anjali Reagan SEG % 74.0 % Normal 43.0-75.0 [facility] Comment on above: Performed By: #### C CORI ####[facility] Vnjldadjox[address] [place], [place] [address]Dr. Anjali Reagan WBC 7.8 103/ul Normal 4.0-11.0 [facility] Comment on above: Performed By: #### C CORI ####[facility] Uzkszqhjda[address] [place], [place] [address]Dr. Anjali Reagan CRPon 07-05-2021 CRP [Mass/Vol] mg/L Critically high <=1.0 [facility] Comment on above: Performed By: #### C RP, BMP ####[facility] Jlsmurpfty8212 [place] [address]Dr. Anjali Reagan PROF CHEM 8 (BAS METB)on Anion gap [Moles/Vol] 10.1 mmol/L Normal [facility] Comment on above: Performed By: #### C RP, BMP ####[facility] Xhocvtohii6762 [place] [address]Dr. Anjali Reagan Calcium [Mass/Vol] 9.6 mg/dL Normal 8.5-10.1 [facility] Comment on above: Performed By: #### C RP, BMP ####[facility] Zazcftcdoh8751 [place] [address]Dr. Anjali Reagan Chloride [Moles/Vol] 100 mmol/L Normal 98-107 [facility] Comment on above: Performed By: #### C RP, BMP ####[facility] Horoawyite7474 [place] [address]Dr. Anjali Reagan CO2 [Moles/Vol] 30.4 mmol/L Critically high 22.0-30.0 [facility] Comment on above: Performed By: #### C RP, BMP ####[facility] Fndzghsezl[address] [place], [place] [address]Dr. Anjali Reagan Creatinine [Mass/Vol] 1.49 mg/dL Critically high 0.66-1.25 [facility] Comment on above: Performed By: #### C RP, BMP ####[facility] Xgtjefaonz0089 [place] [address]Dr. Anjali Reagan EGFR-AF TONGAN 58 mL/min/1.73m2 Critically low >=60 [facility] Comment on above: Performed By: #### C RP, BMP ####[facility] Zgzrevmawl678[address] [place], [place] [address]Dr. Anjali Reagan EGFR-NON AF TONGAN 48 mL/min/1.73m2 Critically low >=60 [facility] Comment on above: Performed By: #### C RP, BMP ####[facility] Jewtzggsao4249 [place] [phone]. Anjali Reagan Glucose [Mass/Vol] 191 mg/dL Critically high 74-106 [facility] Comment on above: Performed By: #### C RP, BMP ####[facility] Vyeyvnqfwv9499 [place] [phone]. Biancaramona Reagan Potassium [Moles/Vol] 4.5 mmol/L Normal 3.4-5.0 [facility] Comment on above: Performed By: #### C RP, BMP ####[facility] Srpmpydgiy9585 [place] [phone]. Biancaramona Reagan Sodium [Moles/Vol] 136 mmol/L Critically low 137-145 [facility] Comment on above: Performed By: #### C RP, BMP ####[facility] Mwabvbnjxk2876 [place] [phone]. Anjali Reagan Urea nitrogen [Mass/Vol] 33.0 mg/dL Critically high 7.0-18 .0 [facility] Comment on above: Performed By: #### C RP, BMP ####[facility] Enixszdiom3101 [place] [phone]. Biancaramona Tez Urea nitrogen/Creatinine [Mass ratio] 22.1 mg/mg Normal [facility] Comment on above: Performed By: #### C RP, BMP ####[facility] Khpcyhacfq5532 [place] [phone]. Biancaramona Tez SED RATE [place] F[place]ERGRENon 2021 SED RATE 26 mm/hr Critically high <=20 [facility] Comment on above: Performed By: #### S EDR ####[facility] Dfwrvtrbab9667[address] [place], [place] [address]Dr. Biancaramona Reagan XR ANKLE RT MIN 3 VIEWSon XR ANKLE RT MIN 3 VIEWS Normal [facility] CT ANKLE RT WO CONon 022 CT ANKLE RT WO CON Normal [facility] CULTURE OTHERon 05-19-2021 CULTURE OTHER Normal [facility] Comment on above: Performed By: #### O THCX ####[facility] Tyoyqpoude6928 [place] [phone]. Biancaramona Tez CULTURE ANAEROBICon 05-16-19 CULTURE ANAEROBIC Specimen Comments: RIGHT FOOT ABSCESS Culture Observations: NO GROWTH OF ANAEROBES AT 72 HOURS. Normal [facility] Comment on above: Performed By: #### A NACX ####[facility] Yzywchbwax0724 [place] [address]Dr. Anjali Reagan GRAM STAINon 05-16-2021 DIPHTHEROIDS Normal [facility] Comment on above: Performed By: #### G STAIN ####[facility] Liamevdqhb020[address] [place], [place] [address]Dr. Anjali Reagan EPITHELIALS Normal [facility] Comment on above: Performed By: #### G STAIN ####[facility] Wgnrhpauag[address] [place], [place] [address]Dr. Anjali Reagan FUNGAL ELEMENTS Normal [facility] Comment on above: Performed By: #### G STAIN ####[facility] Jslrzgwpat69[address] [place], [place] [address]Dr. Anjali Reagan GRAM NEG BACILLI MANY Normal [facility] Comment on above: Performed By: #### G STAIN ####[facility] Wdsifeycwh23[address] [place], [place] [address]Dr. Anjali Reagan GRAM NEG DIPPLOCOCCI Normal [facility] Comment on above: Performed By: #### G STAIN ####[facility] Mflcvrkpkt0368 [place] [address]Dr. Anjali Reagan GRAM POS BACILLI Normal [facility] Comment on above: Performed By: #### G STAIN ####[facility] Etmkmxkkej9[address] [place], [place] [address]Dr. Anjali Reagan GRAM POSITIVE COCCI Normal The [facility] Comment on above: Performed By: #### G STAIN ####[facility] Rriajunlkv6204 [place] [address]Dr. Anjali Reagan GRAM STAIN SOURCE RIGHT FOOT Normal [facility] Comment on above: Performed By: #### G STAIN ####[facility] Arvkwiilsx[address] [place], [place] [address]Dr. Anjali Tez GS_DIPTH Normal [facility] Comment on above: Performed By: #### G STAIN ####[facility] Pyfrewzyom4904 [place], [place] [address]Cf. Anjali Reagan WBC MANY Normal [facility] Comment on above: Performed By: #### G STAIN ####[facility] Dtlqjkawor8560 [place] [phone]. Anjali Reagan XR ANKLE RT MIN 3 VIEWSon XR ANKLE RT MIN 3 VIEWS Normal [facility] COMPREHENSIVE METABOLIC PANE Ray 04-16-2021 Albumin [Mass/Vol] 4.6 g/dL Normal 3.6-5.1 [facility] Comment on above: Performed By: #### 7 600, 496, 42035 #### [facility] [place] [address] Medical Services Coordinator: Juan Meraz MD Albumin/Globulin [Mass ratio] 1.7 {ratio} Normal 1.0-2.5 [facility] Comment on above: Performed By: #### 7 600, 496, 64179 #### [facility] [place] [address] Medical Services Coordinator: Juan Meraz MD ALP [Catalytic activity/Vol] 119 U/L Normal 35-144 [facility] Comment on above: Performed By: #### 7 600, 496, 64975 #### [facility] [place] [address] Medical Services Coordinator: Juan Meraz MD ALT [Catalytic activity/Vol] 19 U/L Normal 9-46 [facility] Comment on above: Performed By: #### 7 600, 496, 46943 #### [facility] [place] [address] Medical Services Coordinator: Juan Meraz MD AST [Catalytic activity/Vol] 20 U/L Normal 10-35 [facility] Comment on above: Performed By: #### 7 600, 496, 43566 #### [facility] [place] [address] [place] [address] Medical Services Coordinator: Juan Meraz MD Bilirubin [Mass/Vol] 0.6 mg/dL Normal 0.2-1.2 [facility] Comment on above: Performed By: #### 7 600, 496, 78985 #### [facility] [address], [address] [place] [address] Medical Services Coordinator: Juan Meraz MD Calcium [Mass/Vol] 9.9 mg/dL Normal 8.6-10.3 [facility] Comment on above: Performed By: #### 7 600, 496, 47433 #### [facility] [place] [address] Medical Services Coordinator: Juan Meraz MD Chloride [Moles/Vol] 102 mmol/L Normal 98-110 [facility] Comment on above: Performed By: #### 7 600, 496, 37644 #### [facility] [place] [address] Medical Services Coordinator: Juan Meraz MD CO2 [Moles/Vol] 28 mmol/L Normal 20-32 [facility] Comment on above: Performed By: #### 7 600, 496, 69370 #### [facility] [place] [address] Medical Services Coordinator: Juan Meraz MD Creatinine [Mass/Vol] 1.59 mg/dL High 0.70-1.[address] [facility] Comment on above: Result Comment: For patients >49 years of age, the reference limit for Creatinine is approximately 13% higher for people identified as -Mauritian. Performed By: #### 7 600, 496, 68066 #### [facility] [place] [address] Medical Services Coordinator: Juan Meraz MD eGFR NON-AFR. TONGAN 46 mL/min/1.73m2 Low > OR = 60 [facility] Comment on above: Performed By: #### 7 600, 496, 99023 #### [facility] [address] [place] [address] Medical Services Coordinator: Juan Meraz MD GFR/1.73 sq M.predicted among blacks MDRD (S/P/Bld) [Vol rate/Area] 53 mL/min/{1.73_m2} Low > OR = 60 [facility] Comment on above: Performed By: #### 7 600, 496, 61434 #### [facility] [place] [address] Medical Services Coordinator: Juan Meraz MD Globulin (S) [Mass/Vol] 2.7 g/dL Normal 1.9-3.7 [facility] Comment on above: Performed By: #### 7 600, 496, 23488 #### [facility] [place] [address] Medical Services Coordinator: Juan Meraz MD Glucose [Mass/Vol] 176 mg/dL High 65-139 [facility] Comment on above: Result Comment: Non-fasting reference interval For someone without known diabetes, a glucose value >125 mg/dL indicates that they may have diabetes and this should be confirmed with a follow-up test. Performed By: #### 7 600, 496, 15208 #### [facility] [place] [address] Medical Services Coordinator: Juan Meraz MD Potassium [Moles/Vol] 4.2 mmol/L Normal 3.5-5.[address] [facility] Comment on above: Performed By: #### 7 600, 496, 22143 #### [facility] [place] [address] Medical Services Coordinator: Juan Meraz MD Protein [Mass/Vol] 7.3 g/dL Normal 6.1-8.1 [facility] Comment on above: Performed By: #### 7 600, 496, 97714 #### [facility] [place] [address] Medical Services Coordinator: Juan Meraz MD Sodium [Moles/Vol] 138 mmol/L Normal 135-146 [facility] Comment on above: Performed By: #### 7 600, 496, 79073 #### [facility] [address], [address] [place] [address] Medical Services Coordinator: Juan Meraz MD Urea nitrogen [Mass/Vol] 48 mg/dL High 7-25 [facility] Comment on above: Performed By: #### 7 600, 496, 37942 #### [facility] [address], [address] [place] [address] Medical Services Coordinator: Juan Meraz MD Urea nitrogen/Creatinine [Mass ratio] 30 mg/mg High 6-22 [facility] Comment on above: Performed By: #### 7 600, 496, 39708 #### [facility] of [address], [address] [place] [address] Medical Services Coordinator: Juan Meraz MD HEMOGLOBIN A1con 04-16-2021 HEMOGLOBIN A1c 6.7 % of total Hgb High <5.7 [facility] Comment on above: Result Comment: For someone without known diabetes, a hemoglobin A1c value of 6.5% or greater indicates that they may have diabetes and this should be confirmed with a follow-up test. For someone with known diabetes, a value <7% indicates that their diabetes is well controlled and a value greater than or equal to 7% indicates suboptimal control. A1c targets should be individualized based on duration of diabetes, age, comorbid conditions, and other considerations. Currently, no consensus exists regarding use of hemoglobin A1c for diagnosis of diabetes for children. Performed By: #### 1 0165, 496, 905 #### [facility] [address], [address] [place] [address] Medical Services Coordinator: Juan Meraz MD LIPID PANEL, STANDARDon 04-02 Cholesterol [Mass/Vol] 108 mg/dL Normal <200 [facility] Comment on above: Order Comment: FASTI NG:NO FASTING: NO Performed By: #### 7 600, 496, 12246 #### [facility] [address], [address] [place] [address] Medical Services Coordinator: Juan Meraz MD Cholesterol in HDL [Mass/Vol] 47 mg/dL Normal > OR = 40 [facility] Comment on above: Order Comment: FASTI NG:NO FASTING: NO Performed By: #### 7 600, 496, 05082 #### [facility] [place] [address] Medical Services Coordinator: Juan Meraz MD Cholesterol in LDL [Mass/Vol] 42 mg/dL Normal [facility] Comment on above: Order Comment: FASTI NG:NO FASTING: NO Result Comment: Refe rence range: <100 Desirable range <100 mg/dL for primary prevention; <70 mg/dL for patients with CHD or diabetic patients with > or = 2 CHD risk factors. LDL-C is now calculated using the Holly calculation, which is a validated novel method providing better accuracy than the Friedewald equation in the estimation of LDL-C. Camden BAH et al. TABITHA. 2013;310(19): 9720-4710 (http://education.American Well.PhoRent/faq/FIL728) Performed By: #### 7 600, 496, 27401 #### [facility] [address], [address] [place] [address] Medical Services Coordinator: Juan Meraz MD Cholesterol.total/Choles terol in HDL [Mass ratio] 2.3 {ratio} Normal <5.0 [facility] Comment on above: Order Comment: FASTI NG:NO FASTING: NO Performed By: #### 7 600, 496, 48601 #### [facility] [place] [address] Medical Services Coordinator: Juan Meraz MD NON HDL CHOLESTEROL 61 mg/dL (calc) Normal <130 [facility] Comment on above: Order Comment: FASTI NG:NO FASTING: NO Result Comment: For patients with diabetes plus 1 major ASCVD risk factor, treating to a non-HDL-C goal of <100 mg/dL (LDL-C of <70 mg/dL) is considered a therapeutic option. Performed By: #### 7 600, 496, 76548 #### [facility] [address], [address] [place] [address] Medical Services Coordinator: Juan Meraz MD Triglyceride [Mass/Vol] 102 mg/dL Normal <150 [facility] Comment on above: Order Comment: FASTI NG:NO FASTING: NO Performed By: #### 7 600, 496, 72329 #### [facility] [address], [address] [place] [address] Medical Services Coordinator: Juan Meraz MD CT ANKLE RT WO CONon 022 CT ANKLE RT WO CON Normal [facility] XR ANKLE RT MIN 3 VIEWSon XR ANKLE RT MIN 3 VIEWS Normal [facility] ACID FAST SMEAR AND CXon Acid Fast Culture Negative Normal [facility] Comment on above: Result Comment: No a rj fast bacilli isolated after 6 weeks. Performed By: #### A FB ####[facility] Riloqsnnbh3054 [place] [address]Dr. Biancalan Reagan Acid Fast Smear Negative Normal [facility] Comment on above: Performed By: #### A FB ####[facility] Spnjcrxgms9[address] [place], [place] [address]Dr. Biancalan [employer] Specimen Processing Direct Inoculation [facility] Comment on above: Performed By: #### A FB ####[facility] Tpddcrzblc[address] [place], [place] [address]Dr. Yilan Reagan ACID FAST SMEAR AND CXon Acid Fast Culture Negative Normal [facility] Comment on above: Result Comment: No a rj fast bacilli isolated after 6 weeks. Performed By: #### A FB ####[facility] Evpliiiihc3417 [place] [address]Dr. Yilan Reagan Acid Fast Smear Negative Normal [facility] Comment on above: Performed By: #### A FB ####[facility] Vgxezanlmu0434[address] [place], [place] [address]Dr. Biancalan [employer] Specimen Processing Tissue Grinding [facility] Comment on above: Performed By: #### A FB ####[facility] Joadikxvzg5[address] [place], [place] [address]Dr. Biancalan [employer] Specimen Processing Direct Inoculation Normal [facility] Comment on above: Performed By: #### A FB ####[facility] Pcdlwqgpxu04[address] [place], [place] [address]Dr. Anjali Reagan FUNGAL CULTUREon 03-15-2021 Fungus (Mycology) Culture Final report Normal [facility] Comment on above: Performed By: #### C XFUN ####[facility] Nonyrrculr20[address] [place], [place] [address]Dr. Anjali Reagan Fungus Stain Final report Normal [facility] Comment on above: Performed By: #### C XFUN ####[facility] Pwzpbgnhdd8345[address] [place], [place] [address]Dr. Anjali Reagan Result 1 Comment Normal [facility] Comment on above: Result Comment: MIRIAN/ Calcofluor preparation: no fungus observed. Performed By: #### C XFUN ####[facility] Gvpxcczgtf045[address] [place], [place] [address]Dr. Anjali Reagan Result Comment: No y east or mold isolated after 4 weeks. FUNGAL CULTUREon 03-09-2021 Fungus (Mycology) Culture Final report [facility] Comment on above: Performed By: #### C XFUN ####[facility] Nyngimfkut6544[address] [place], [place] [address]Dr. Anjali Reagan Fungus Stain Final report Normal [facility] Comment on above: Performed By: #### C XFUN ####[facility] Iuodissqkr75[address] [place], [place] [address]Dr. Anjali Reagan Result 1 Comment Normal [facility] Comment on above: Result Comment: MIRIAN/ Calcofluor preparation: no fungus observed. Performed By: #### C XFUN ####[facility] Vzmgnqxmpy089[address] [place], [place] [address]Dr. Anjali Reagan Result Comment: No y east or mold isolated after 4 weeks. XR ANKLE RT MIN 3 VIEWSon XR ANKLE RT MIN 3 VIEWS Normal T he [facility] Otolaryngology Office/Clinic Noteon 02-28-2021 Otolaryngology Office/Clinic Note Chief Complaint 1 month flap repair to ear, repeat hearing test. History of Present Illness Anai is a pleasant 65 year old male who returns today for a 1 month p/o postauricular mastoid flap reconstruction of the ear and a repeat hearing test. Patient denies any issues or concerns at this time. They were unable to travel to [place] as he required another right ankle surgery. 01/19/21 Anai is a pleasant 65 year old male who returns today for a 1 week post op postauricular mastoid flap for reconstruction of the ear removal of basal cell carcinoma. Patient reports he has been able to keep his pain under control and feels good. Is also here status post audiogram and tympanogram. 01/12/21 Aani is a pleasant 65-year-old male who presents postop day 1 status post postauricular mastoid flap for reconstruction of the ear status post removal of basal cell carcinoma. Postop day 0 he had bleeding which was cauterized in our clinic and rebandaged. Today there is still some bleeding but much improved from previously. 12/15/20 Referred by pcp Irais to ENT for lesion left ear duration of 1 year. Concerned about BCC. Denies any pain or redness from the area. He is also having right ear pain and congestion today with difficulty hearing duration 6+ months. Previous ENT management by Dr. Freed. Previous pathology by physician in [place] about 1 year ago. PMHx of multiple surgeries in right foot. Review of Systems All ochoa are negative unless otherwise indicated by a Y Ears Ear pain Hearing loss Tinnitus Dizziness Skin Lesion Wound/Abrasion Swelling Drainage Facial Pain Physical Exam Vitals & Measurements T: 36.5 ?C (Temporal Artery) HT: 180 cm WT: 92 kg BMI: 28.4 Vitals reviewed and any abnormalities discussed with the patient General: No acute distress, alert and oriented ?3 Voice: Normal tone, volume, and projection noted. Head: Normocephalic atraumatic, no abnormal masses or lesions noted Eyes: Extraocular motion is intact bilaterally, pupils are equally reactive and round to light Ears: Left ear with postauricular mastoid flap with excellent viability and healing well. Overall this is healed very well and the patient is happy with the contour of his ear. The mastoid flap has sunken in and created contour posteriorly without any severe step-off. Microscopic exam reveals no obvious fluid in the middle ear space. I did place a myringotomy incision on the left to see if any fluid was there using a 27-gauge needle. No fluid was withdrawn. Nose: External nasal dorsum is straight. Anterior rhinoscopy reveals normal intranasal anatomy, a straight septum, and normal inferior turbinates bilaterally. Mouth: Dentition is good. Oral tongue has normal mobility and appears normal with no abnormal masses or lesions. Oropharynx: Tonsils are 1-2+. The posterior oropharynx shows no abnormal masses or lesions, Mirror: Not performed due to gag reflex. Neck: Neck is supple bilaterally. No thyromegaly. Laryngeal crepitus is normal. CV: Heart rate normal. Equal bilateral peripheral perfusion. Pulmonary: No audible wheezing, stridor, or stertor noted. Equal chest excursion noted bilaterally. Musculoskeletal: There is no evidence of temporomandibular joint disorders or inflammation of the muscles of mastication bilaterally. Heme/Lymph: There is no cervical lymphadenopathy noted. No visible bruising noted in the head and neck. Neuro: Cranial nerves II - XII are grossly normal with no focal deficits noted. January 19, 2021 audiogram and tympanogram showing moderate to severe sensorineural hearing loss bilaterally. Possible air-bone gap at 4000 Hz. Type B tympanograms bilaterally. With normal volumes. Word recognition scores 84% on the right and 80% on the left. January 19, 2021 procedure: Skin Debridement: The region was carefully cleansed/debrided using a combination of 4 x 4's and Q-tips soaked with half hydrogen peroxide and half saline. Care was taken to debride any dried blood, scabbing, or debri at the incision site. When indicated a single-tooth Adson and suture scissors were used to further cleanse/debride the wound. Topical Bactroban ointment was carefully placed on the wound. Sutures were removed as well. The wound edge of the distal flap had some mild few millimeter necrosis but I want this attached better to the scaphoid region. This was debrided and Steri-Strips used to reinforce this. January 12, 2021 procedure: Skin Debridement: The region was carefully cleansed/debrided using a combination of 4 x 4's and Q-tips soaked with half hydrogen peroxide and half saline. Care was taken to debride any dried blood, scabbing, or debride at the incision site. When indicated a single-tooth Adson and suture scissors were used to further cleanse/debride the wound. Topical Bactroban ointment was carefully placed on the wound. January 11, 2021 excision and preparation of surgical site and reconstruction of left auricular defect with postauricular m (more content not included)... Normal [facility] CBC W MANUAL DIFFon 02-13-20 21 ATYPICAL LYMPH # Normal [facility] Comment on above: Performed By: #### C CORI ####[facility] R[address]jopcoxz[address] [place] [address]Dr. Anjali Reagan ATYPICAL LYMPH % Normal [facility] Comment on above: Performed By: #### C CORI ####[facility] Wsapliuzap[address] [place], [place] [address]Dr. Anjali Reagan BAND # 0.3 103/ul Normal 0.0-0.3 [facility] Comment on above: Performed By: #### C CORI ####[facility] Tcuigrpwtn[address] [place], [place] [address]Dr. Anjali Reagan BAND % 4 % Normal 0-5 [facility] Comment on above: Performed By: #### C CORI ####[facility] Kiglkcaomi9[address] [place], [place] [address]Dr. Anjali Reagan BASOM # 0.00 103/ul Normal 0.00-0.10 [facility] Comment on above: Performed By: #### C CORI ####[facility] Lqclhzydqi47[address] [place], [place] [address]Dr. Anjali Reagan BASOM % 0.0 % Critically low 0.2-2.0 [facility] Comment on above: Performed By: #### C CORI ####[facility] Nzqwmiypmd[address] [place], [place] [address]Dr. Anjali Reagan BLAST # Normal [facility] Comment on above: Performed By: #### C CORI ####[facility] Hmgrudbnzh[address] [place], [place] [address]Dr. Biancalan Reagan BLAST % Normal [facility] Comment on above: Performed By: #### C CORI ####[facility] Xmcleposhw16[address] [place], [place] [address]Dr. Yilan Reagan CORRECTED WBC Normal 4.0-11.0 [facility] Comment on above: Performed By: #### C BCMAN ####[facility] Jebzyfshtz34[address] [place] [phone]. Anjali Reagan EOS # 0.28 103/ul Normal 0.00-0.70 [facility] Comment on above: Performed By: #### C BCMAN ####[facility] Wpusdmohgn7824 [place] [phone]. Anjali Reagan EOS% 4.0 % Normal 0.9-7.0 [facility] Comment on above: Performed By: #### C BCMAN ####[facility] Jpavvsqtgz0894 [place] [phone]. Anjali Reagan HCT 28.5 % Critically low 42.0-54.0 [facility] Comment on above: Performed By: #### C BCFIONA ####[facility] Mfntkgghhm24[address] [place] [address]Dr. Anjali Reagan HGB 8.6 g/dl Critically low 14.0-18.0 [facility] Comment on above: Performed By: #### C BCFIONA ####[facility] Eexdldwhzf7[address] [place] [phone]. Anjali Reagan HYPOCHROMASIA 3+ Normal [facility] Comment on above: Performed By: #### C BCFIONA ####[facility] Lngedqkthk8038 [place] [phone]. Anjali Reagan LYMPHM # 0.57 103/ul Critically low 1.20-3.80 [facility] Comment on above: Performed By: #### C BCFIONA ####[facility] Gztctxnyhh4838 [place] [phone]. Anjali Reagan LYMPHM% 8.0 % Critically low 20.5-60.0 [facility] Comment on above: Performed By: #### C BCMAN ####[facility] Wvxvtlrqvi6165 [place] [phone]. Anjali Reagan MCH 25.4 pg Critically low 25.9-34.0 [facility] Comment on above: Performed By: #### C CORI ####[facility] Cgtfqczcfn5011 [place] [phone]. Anjali Reagan MCHC 30.2 g/dl Normal 29.9-35.2 [facility] Comment on above: Performed By: #### C CORI ####[facility] Ydaiyeiryn4216 [place] [phone]. Anjali Reagan MCV 84.1 fL Normal 80.0-94.0 [facility] Comment on above: Performed By: #### C BCFIONA ####[facility] Tqfurdlrdm1916 [place] [phone]. Anjali Reagan METAMYELOCYTE # Normal [facility] Comment on above: Performed By: #### C CORI ####[facility] Zxqlyxptfa20[address] [place], [place] [address]Dr. Anjali Reagan METAMYELOCYTE % Normal [facility] Comment on above: Performed By: #### C CORI ####[facility] Dtvhquttwi[address] [place], [place] [address]Dr. Anjali Reagan MICROCYTOSIS 2+ Normal [facility] Comment on above: Performed By: #### C CORI ####[facility] Hnbdcyrlcr9166[address] [place], [place] [address]Dr. Anjali Reagan MONOM# 0.14 103/ul Critically low 0.30-0.80 [facility] Comment on above: Performed By: #### C CORI ####[facility] Riooylnfdt[address] [place], [place] [address]Dr. Anjali Reagan MONOM% 2.0 % Normal 1.7-12.0 [facility] Comment on above: Performed By: #### C CORI ####[facility] Iigkpcbgbd733[address] [place], [place] [address]Dr. Anjali Reagan MPV 9.3 fL Critically low 9.5-13.5 [facility] Comment on above: Performed By: #### C CORI ####[facility] Kxyyozegrc8592[address] [place], [place] [address]Dr. Anjali Reagan MYELOCYTE # Normal [facility] Comment on above: Performed By: #### C CORI ####[facility] Zrrggvpysl6094 [place] [phone]. Anjali Reagan MYELOCYTE % Normal [facility] Comment on above: Performed By: #### C CORI ####[facility] Aqtxgrgoil8968 [place] [phone]. Anjali Reagan NRBC 1 Normal [facility] Comment on above: Performed By: #### C CORI ####[facility] Zsrwdytjwf8[address] [place] [phone]. Anjali Reagan PLT 186 103/ul Normal 150-450 [facility] Comment on above: Performed By: #### C CORI ####[facility] Misipeowej[address] [place] [phone]. Anjali Reagan RBC 3.39 106/ul Critically low 4.70-6.10 [facility] Comment on above: Performed By: #### C CORI ####[facility] Cnczqnnphy3307 [place] [phone]. Anjali Reagan RDW 18.8 % Critically high 11.0-15.0 [facility] Comment on above: Performed By: #### C CORI ####[facility] Wbyfpztrec2368 [place] [phone]. Anjali Reagan SEG # 5.82 103/ul Normal 1.40-6.50 [facility] Comment on above: Performed By: #### C CORI ####[facility] Nseusaokts6604 [place] [phone]. Anjali Reagan SEG % 82.0 % Critically high 43.0-75.0 [facility] Comment on above: Performed By: #### C CORI ####[facility] Qxqwjqxttt[address] [place], [place] [address]Dr. Anjali Reagan WBC 7.1 103/ul Normal 4.0-11.0 [facility] Comment on above: Performed By: #### C CORI ####[facility] Eosobgidoh9[address] [place], [place] [address]Dr. Anjali Reagan POINT OF CARE GLUCOSEon 11-1 3-2021 Glucose [Mass/Vol] 175 mg/dL Critically high 74-106 [facility] Comment on above: Performed By: #### P OCGLUC ####[facility] Ulnqgzkkll4[address] [place] [address]Dr. Anjali Reagan PROF 14(COMP METB)on 02-12- 021 Albumin [Mass/Vol] 2.4 g/dL Critically low 3.5-5.0 [facility] Comment on above: Performed By: #### C MP ####[facility] Cimpurothj6[address] [place] [address]Dr. Anjali Reagan Albumin/Globulin [Mass ratio] 0.6 {ratio} Normal [facility] Comment on above: Performed By: #### C MP ####[facility] Nzniwadeur3103 [place] [address]Dr. Anjali Reagan ALP [Catalytic activity/Vol] 93 U/L Normal 38-126 [facility] Comment on above: Performed By: #### C MP ####[facility] Lfiicffewn7512[address] [place], [place] [address]Dr. Anjali Reagan ALT [Catalytic activity/Vol] 18 U/L Critically low 21-72 [facility] Comment on above: Performed By: #### C MP ####[facility] Vmuafmtowc1302 [place] [address]Dr. Anjali Reagan Anion gap [Moles/Vol] 12.5 mmol/L Normal [facility] Comment on above: Performed By: #### C MP ####[facility] Lzzpbtjbcd0923 [place] [address]Dr. Anjali Reagan AST [Catalytic activity/Vol] 30 U/L Normal 17-59 [facility] Comment on above: Performed By: #### C MP ####[facility] Xyjyzfeuwo9986 [place] [address]Dr. Anjali Reagan Bilirubin [Mass/Vol] 0.5 mg/dL Normal 0.2-1.3 [facility] Comment on above: Performed By: #### C MP ####[facility] Ihwodfnnhu98[address] [place], [place] [address]Dr. Anjali Reagan Calcium [Mass/Vol] 8.5 mg/dL Normal 8.4-10.2 [facility] Comment on above: Performed By: #### C MP ####[facility] Vdplxwovyf6953 [place] [address]Dr. Anjali Reagan Chloride [Moles/Vol] 103 mmol/L Normal 98-107 [facility] Comment on above: Performed By: #### C MP ####[facility] Ckgvbynlol3[address] [place], [place] [address]Dr. Anjali Reagan CO2 [Moles/Vol] 25.8 mmol/L Normal 22.0-30.0 [facility] Comment on above: Performed By: #### C MP ####[facility] Bmfisjwscu736[address] [place], [place] [address]Dr. Anjali Tez Creatinine [Mass/Vol] 1.09 mg/dL Normal 0.66-1.25 [facility] Comment on above: Performed By: #### C MP ####[facility] Xkkktbupfg2417[address] [place], [place] [address]Dr. Anjali Tez EGFR-AF TONGAN >60 Normal >=60 [facility] Comment on above: Performed By: #### C MP ####[facility] Pikhbguidc459[address] [place], [place] [address]Dr. Anjali Tez EGFR-NON AF TONGAN >60 Normal >=60 [facility] Comment on above: Performed By: #### C MP ####[facility] Sdonuevbne1053[address] [place], [place] [address]Dr. Anjali Tez Globulin (S) [Mass/Vol] 3.7 g/dL Normal [facility] Comment on above: Performed By: #### C MP ####[facility] Utmhmkdzft4394[address] [place], [place] [address]Dr. Biancaramona Tez Glucose [Mass/Vol] 165 mg/dL Critically high 74-106 [facility] Comment on above: Performed By: #### C MP ####[facility] Xjosczugax0409[address] [place], [place] [address]Dr. Anjali Reagan Potassium [Moles/Vol] 4.3 mmol/L Normal 3.4-5.0 [facility] Comment on above: Performed By: #### C MP ####[facility] Xclxfgercb4236[address] [place], [place] [address]Dr. Anjali Reagan Protein [Mass/Vol] 6.1 g/dL Normal 6.1-8.2 [facility] Comment on above: Performed By: #### C MP ####[facility] Chrhupxjkq2723[address] [place], [place] [address]Dr. Anjali Tez Sodium [Moles/Vol] 137 mmol/L Normal 137-145 [facility] Comment on above: Performed By: #### C MP ####[facility] Imwsekakyy33[address] [place], [place] [address]Dr. Anjali Tez Urea nitrogen [Mass/Vol] 24.0 mg/dL Critically high 9.0-20 .0 [facility] Comment on above: Performed By: #### C MP ####[facility] Hkjhglxegk7564[address] [place], [place] [address]Dr. Anjali Tez Urea nitrogen/Creatinine [Mass ratio] 22.0 mg/mg Normal [facility] Comment on above: Performed By: #### C MP ####[facility] Svqsgbqmsx457[address] [place], [place] [address]Dr. Anjali Tez ALBUMINon 02-11-2021 Albumin [Mass/Vol] 2.8 g/dL Critically low 3.5-5.0 [facility] Comment on above: Performed By: #### P REALB, ALB ####[facility] Eyrhugyspw7[address] [place], [place] [address]Dr. Anjali Tez CBC AUTO DIFFon 02-11-2021 BASO # 0.0 103/ul Normal 0.0-0.1 [facility] Comment on above: Performed By: #### C BC ####[facility] Rfjuxywdvt2563[address] [place], [place] [address]Dr. Biancaramona Reagan Basophils/100 WBC (Bld) 0.5 % Normal 0.2-2.0 [facility] Comment on above: Performed By: #### C BC ####[facility] Ephhszueqk4597 [place] [phone]. Anjali Reagan EO # 0.5 103/ul Normal 0.0-0.7 [facility] Comment on above: Performed By: #### C BC ####[facility] Fqnkalmofv2640 [place] [phone]. Anjali Reagan Eosinophils/100 WBC (Bld) 7.4 % Critically high 0.9-7.0 [facility] Comment on above: Performed By: #### C BC ####[facility] Xbcuqedhyw6916 [place] [address]Dr. Anjali Reagan Erythrocyte distribution width (RBC) [Ratio] 18.7 % Critically high 11.0-15.0 [facility] Comment on above: Performed By: #### C BC ####[facility] Aoylrnjwbm[address]97[address] [place], [place] [address]Dr. Anjali Reagan Hematocrit (Bld) [Volume fraction] 30.7 % Critically low 42.0-54.0 [facility] Comment on above: Performed By: #### C BC ####[facility] Cgkklveqdj1802 [place] [address]Dr. Anjali Reagan Hemoglobin (Bld) [Mass/Vol] 9.5 g/dL Critically low 14.0-18.0 [facility] Comment on above: Performed By: #### C BC ####[facility] Hbbgckkwnx07[address] [place] [address]Dr. Anjali Reagan IG # 0.05 10e3/ul Critically high 0.00-0.03 [facility] Comment on above: Performed By: #### C BC ####[facility] Yijqxfknvw034[address] [place] [address]Dr. Anjali Reagan IG % 0.8 % Critically high 0.0-0.5 [facility] Comment on above: Performed By: #### C BC ####[facility] Ncuwqxtsxi1221 [place] [address]Dr. Anjali Reagan LYMPH # 0.6 103/ul Critically low 1.2-3.8 [facility] Comment on above: Performed By: #### C BC ####[facility] Vjgczqjqvr6503 [place] [address]Dr. Biancaramona Reagan Lymphocytes/100 WBC (Bld) 8.5 % Critically low 20.5-60.0 [facility] Comment on above: Performed By: #### C BC ####[facility] Lhalstxknf8[address] [place] [address]Dr. Anjali Reagan MANUAL DIFF REQ NO Normal [facility] Comment on above: Performed By: #### C BC ####[facility] Uosrntphyo75[address] [place], [place] [address]Dr. Anjali Reagan MCH (RBC) [Entitic mass] 25.3 pg Critically low 25.9-34 .0 [facility] Comment on above: Performed By: #### C BC ####[facility] Athksqgiwv385[address] [place], [place] [address]Dr. Anjali Reagan MCHC (RBC) [Mass/Vol] 30.9 g/dL Normal 29.9-35.2 [facility] Comment on above: Performed By: #### C BC ####[facility] Xdfgfdhizc[address] [place], [place] [address]Dr. Anjali Reagan MCV (RBC) [Entitic vol] 81.6 fL Normal 80.0-94.0 [facility] Comment on above: Performed By: #### C BC ####[facility] Cjflnqhxku33[address] [place], [place] [address]Dr. Anjali Reagan MONO # 0.8 103/ul Normal 0.3-0.8 [facility] Comment on above: Performed By: #### C BC ####[facility] Fzwzcqrkit374[address] [place], [place] [address]Dr. Anjali Reagan Monocytes/100 WBC (Bld) 12.2 % Critically high 1.7-12. 0 [facility] Comment on above: Performed By: #### C BC ####[facility] Mfxpzpzzdi0[address] [place], [place] [address]Dr. Anjali Reagan NEUT # 4.6 103/ul Normal 1.4-6.5 [facility] Comment on above: Performed By: #### C BC ####[facility] Lzchvdcpgv8350 [place] [phone]. Anjali Reagan Neutrophils/100 WBC (Bld) 70.6 % Normal 43.0-75.0 [facility] Comment on above: Performed By: #### C BC ####[facility] Xjigqorduv9385 [place] [phone]. Anjali Reagan Platelet mean volume (Bld) [Entitic vol] 9.6 fL Normal 9.5-13.5 [facility] Comment on above: Performed By: #### C BC ####[facility] Wilnonpwzp6[address] [place] [phone]. Anjali Reagan PLT 205 103/ul Normal 150-450 [facility] Comment on above: Performed By: #### C BC ####[facility] Tmchzkozas5491 [place] [phone]. Anjali Reagan RBC 3.76 106/ul Critically low 4.70-6.10 [facility] Comment on above: Performed By: #### C BC ####[facility] Ydaclexljl2841 [place] [phone]. Anjali Reagan WBC 6.5 103/ul Normal 4.0-11.0 [facility] Comment on above: Performed By: #### C BC ####[facility] [address]tawytxtex[address] [place], [place] [address]Dr. Anjali Reagan CULTURE ANAEROBICon 02-12-20 21 CULTURE ANAEROBIC Specimen Comments: RIGHT ANKLE JOINT Culture Observations: NO GROWTH AT 72 HRS Normal [facility] Comment on above: Performed By: #### A NACX ####[facility] Uohbriqvtk15[address] [place] [phone]. Anjali Reagan CULTURE OTHERon 02-11-2021 CULTURE OTHER Specimen Comments: RIGHT ANKLE JOINT Culture Observations: NO GROWTH AT 72 HRS Normal [facility] Comment on above: Performed By: #### O THCX ####[facility] Paqqtxdxxb6716 [place] [phone]. Anjali Reagan GRAM STAINon 02-11-2021 COMMENTS NO ORGANISMS OBSERVED Normal [facility] Comment on above: Performed By: #### G STAIN ####[facility] Owonamhftt[address] [place] [address]Dr. Anjali Reagan DIPHTHEROIDS Normal [facility] Comment on above: Performed By: #### G STAIN ####[facility] Ugimdqjahe8972 [place] [address]Dr. Anjali Reagan EPITHELIALS Normal [facility] Comment on above: Performed By: #### G STAIN ####[facility] Wuoehspmzg9550 [place] [address]Dr. Anjali Reagan FUNGAL ELEMENTS Normal [facility] Comment on above: Performed By: #### G STAIN ####[facility] Nzdasvmhxl83[address] [place], [place] [address]Dr. Anjali Reagan GRAM NEG BACILLI Normal [facility] Comment on above: Performed By: #### G STAIN ####[facility] Whvjvnkssb5[address] [place], [place] [address]Dr. Anjali Reagan GRAM NEG DIPPLOCOCCI Normal [facility] Comment on above: Performed By: #### G STAIN ####[facility] Oizpgyjwvr816[address] [place], [place] [address]Dr. Anjali Reagan GRAM POS BACILLI Normal [facility] Comment on above: Performed By: #### G STAIN ####[facility] Gzfbiaiije9[address] [place], [place] [address]Dr. Anjali Reagan GRAM POSITIVE COCCI Normal [facility] Comment on above: Performed By: #### G STAIN ####[facility] Tnlfgpfyca64[address] [place], [place] [address]Dr. Anjali Reagan GRAM STAIN SOURCE Right ankle joint Normal [facility] Comment on above: Performed By: #### G STAIN ####[facility] Qsxmstvcah4129 [place] [address]Dr. Anjali Reagan GS_DIPTH Normal [facility] Comment on above: Performed By: #### G STAIN ####[facility] Raopfeneqn2[address] [place] [address]Dr. Anjali Reagan WBC FEW Normal [facility] Comment on above: Performed By: #### G STAIN ####[facility] Fxqtigixgj8012 [place] [address]Dr. Anjali Reagan POINT OF CARE GLUCOSEon 01-31 Glucose [Mass/Vol] 196 mg/dL Critically high 74-106 [facility] Comment on above: Performed By: #### P OCGLUC ####[facility] Zshsavynqu4248 [place] [address]Dr. Anjail Reagan Glucose [Mass/Vol] 176 mg/dL Critically high 74-106 [facility] Comment on above: Performed By: #### P OCGLUC ####[facility] Globhrghht36[address] [place] [address]Dr. Anjali Reagan PREALBUMINon 02-11-2021 Prealbumin [Mass/Vol] 17.8 mg/dL Normal 17.6-36.0 [facility] Comment on above: Performed By: #### P REALB, ALB ####[facility] Lrmihegbbk[address] [place], [place] [address]Dr. Anjali Reagan PROF 14(COMP METB)on 021 Albumin [Mass/Vol] 2.6 g/dL Critically low 3.5-5.0 [facility] Comment on above: Performed By: #### B MP, CMP ####[facility] Gijewuxkdo[address] [place], [place] [address]Dr. Anjali Reagan Albumin/Globulin [Mass ratio] 0.6 {ratio} Normal [facility] Comment on above: Performed By: #### B MP, CMP ####[facility] Pkrrthmqzw7[address] [place], [place] [address]Dr. Anjali Reagan ALP [Catalytic activity/Vol] 104 U/L Normal 38-126 [facility] Comment on above: Performed By: #### B MP, CMP ####[facility] Gyyzcrthdn017[address] [place], [place] [address]Dr. Anjali Reagan ALT [Catalytic activity/Vol] 17 U/L Critically low 21-72 [facility] Comment on above: Performed By: #### B MP, CMP ####[facility] Annkxjqfhv47[address] [place], [place] [address]Dr. Anjali Reagan AST [Catalytic activity/Vol] 26 U/L Normal 17-59 [facility] Comment on above: Performed By: #### B MP, CMP ####[facility] Tmglzdidla8[address] [place], [place] [address]Dr. Anjali Reagan Bilirubin [Mass/Vol] 0.5 mg/dL Normal 0.2-1.3 [facility] Comment on above: Performed By: #### B MP, CMP ####[facility] Zkajcfcrzi467[address] [place], [place] [address]Dr. Anjali Reagan Globulin (S) [Mass/Vol] 4.1 g/dL Normal [facility] Comment on above: Performed By: #### B MP, CMP ####[facility] Lauosomxfb019[address] [place], [place] [address]Dr. Anjali Reagan Protein [Mass/Vol] 6.7 g/dL Normal 6.1-8.2 [facility] Comment on above: Performed By: #### B MP, CMP ####[facility] Mkdavkrqrv4[address] [place], [place] [address]Dr. Anjali Reagan PROF CHEM 8 (BAS METB)on Anion gap [Moles/Vol] 11.3 mmol/L Normal [facility] Comment on above: Performed By: #### B MP, CMP ####[facility] Idntwnfrra37[address] [place], [place] [address]Dr. Anjali Reagan Calcium [Mass/Vol] 9.0 mg/dL Normal 8.4-10.2 [facility] Comment on above: Performed By: #### B MP, CMP ####[facility] Hsusdvbrgf[address] [place], [place] [address]Dr. Anjali Reagan Chloride [Moles/Vol] 101 mmol/L Normal 98-107 [facility] Comment on above: Performed By: #### B MP, CMP ####[facility] Etpnzujsvv10[address] [place], [place] [address]Dr. Anjali Reagan CO2 [Moles/Vol] 28.0 mmol/L Normal 22.0-30.0 [facility] Comment on above: Performed By: #### B MP, CMP ####[facility] Jujcjafnij67[address] [place] [phone]. Anjali Reagan Creatinine [Mass/Vol] 1.23 mg/dL Normal 0.66-1.25 [facility] Comment on above: Performed By: #### B MP, CMP ####[facility] Qssocjvzfq7146 [place] [phone]. Anjali Reagan EGFR-AF TONGAN >60 Normal >=60 [facility] Comment on above: Performed By: #### B MP, CMP ####[facility] Onpfmrovam2269 [place] [phone]. Anjali Reagan EGFR-NON AF TONGAN 59 mL/min/1.73m2 Critically low >=60 [facility] Comment on above: Performed By: #### B MP, CMP ####[facility] Owynngvwgg4733 [place] [phone]. Anjali Reagan Glucose [Mass/Vol] 109 mg/dL Critically high 74-106 [facility] Comment on above: Performed By: #### B MP, CMP ####[facility] Amohljhbaa1594 [place] [phone]. Anjali Reagan Potassium [Moles/Vol] 3.9 mmol/L Normal 3.4-5.0 [facility] Comment on above: Performed By: #### B MP, CMP ####[facility] Bbxodyaxlb[address] [place], [place] [address]Dr. Anjali Reagan Sodium [Moles/Vol] 136 mmol/L Critically low 137-145 [facility] Comment on above: Performed By: #### B MP, CMP ####[facility] Znuldcxfwg5916 [place] [phone]. Anjali Reagan Urea nitrogen [Mass/Vol] 32.0 mg/dL Critically high 9.0-20 .0 [facility] Comment on above: Performed By: #### B MP, CMP ####[facility] Jgpuhmmwul[address] [place], [place] [address]Dr. Biancaramona Reagan Urea nitrogen/Creatinine [Mass ratio] 26.0 mg/mg Normal [facility] Comment on above: Performed By: #### B MP, CMP ####[facility] Pdgqttaeut6910 [place] [phone]. Anjali Reagan VANCOMYCIN TROUGHon 02-12-20 VANCOMYCIN TROUGH 9.8 ug/ml Normal 5.0-20.0 [facility] Comment on above: Performed By: #### V ANCT ####[facility] Akxzjclpkt2969 [place] [phone]. Anjali Reagan XR ANKLE RT 2Von 02-11-2021 XR ANKLE RT 2V Normal [facility] XR FOOT RT MIN 3 VIEWSon XR FOOT RT MIN 3 VIEWS Normal Th [facility] CBC AUTO DIFFon 02-10-2021 BASO # 0.0 103/ul Normal 0.0-0.1 [facility] Comment on above: Performed By: #### C BC ####[facility] Lsdcuzyujw6247 [place] [address]Dr. Anjali Reagan Basophils/100 WBC (Bld) 0.3 % Normal 0.2-2.0 [facility] Comment on above: Performed By: #### C BC ####[facility] Vjqeuhnvff3411 [place] [address]Dr. Anjali Reagan EO # 0.2 103/ul Normal 0.0-0.7 [facility] Comment on above: Performed By: #### C BC ####[facility] Ohoynxwbpj6159 [place] [phone]. Anjali Reagan Eosinophils/100 WBC (Bld) 2.7 % Normal 0.9-7.0 [facility] Comment on above: Performed By: #### C BC ####[facility] Vwrupafjvx7732 [place] [phone] Reagan Erythrocyte distribution width (RBC) [Ratio] 18.8 % Critically high 11.0-15.0 [facility] Comment on above: Performed By: #### C BC ####[facility] Qgcegzcgdq9189 [place] [phone] Reagan Hematocrit (Bld) [Volume fraction] 31.6 % Critically low 42.0-54.0 [facility] Comment on above: Performed By: #### C BC ####[facility] Cprgmbgnuf3934 [place] [phone] Anjali Tez Hemoglobin (Bld) [Mass/Vol] 9.6 g/dL Critically low 14.0-18.0 [facility] Comment on above: Performed By: #### C BC ####[facility] Mjwsigurac5506 [place] [address]DrVeronica Valenzuelaramona Tez IG # 0.04 10e3/ul Critically high 0.00-0.03 [facility] Comment on above: Performed By: #### C BC ####[facility] Tedcnpckzv6792 [place] [address]DrVeronica Reagan IG % 0.6 % Critically high 0.0-0.5 [facility] Comment on above: Performed By: #### C BC ####[facility] Joeaeopvrr2841 [place] [address]DrVeronica Reagan LYMPH # 0.9 103/ul Critically low 1.2-3.8 [facility] Comment on above: Performed By: #### C BC ####[facility] Xmdfbojdat9244 [place] [address]DrVeronica Reagan Lymphocytes/100 WBC (Bld) 12.2 % Critically low 20.5-60.0 [facility] Comment on above: Performed By: #### C BC ####[facility] Peegsrixgl6498 [place] [address]DrVeronica Reagan MANUAL DIFF REQ NO Normal [facility] Comment on above: Performed By: #### C BC ####[facility] Otxlhdkdjb6174 [place] [phone] Reagan MCH (RBC) [Entitic mass] 24.7 pg Critically low 25.9-34 .0 [facility] Comment on above: Performed By: #### C BC ####[facility] Pnmqvwukcu5778 [place] [phone] Reagan MCHC (RBC) [Mass/Vol] 30.4 g/dL Normal 29.9-35.2 [facility] Comment on above: Performed By: #### C BC ####[facility] Vzuqmovsrw6662 [place] [address]DrVeronica Anjali Reagan MCV (RBC) [Entitic vol] 81.4 fL Normal 80.0-94.0 [facility] Comment on above: Performed By: #### C BC ####[facility] Xplkjvwmgn3534 [place] [address]DrVeronica Valenzuelaramona Tez MONO # 0.7 103/ul Normal 0.3-0.8 [facility] Comment on above: Performed By: #### C BC ####[facility] Ltjsisogvc4043 [place] [address]DrVeronica Reagan Monocytes/100 WBC (Bld) 9.9 % Normal 1.7-12.0 [facility] Comment on above: Performed By: #### C BC ####[facility] Wusacprdil[address] [place], [place] [address]Dr. Biancaramona Tez NEUT # 5.3 103/ul Normal 1.4-6.5 [facility] Comment on above: Performed By: #### C BC ####[facility] Ssnyzjfloe[address] [place], [place] [address]DrVeronica Biancaramona Reagan Neutrophils/100 WBC (Bld) 74.3 % Normal 43.0-75.0 [facility] Comment on above: Performed By: #### C BC ####[facility] Osuptdugkz5901 [place] [address]DrVeronica Reagan Platelet mean volume (Bld) [Entitic vol] 9.6 fL Normal 9.5-13.5 [facility] Comment on above: Performed By: #### C BC ####[facility] Jyyzsfpjdl4679 [place] [address]DrVeronica Reagan PLT 218 103/ul Normal 150-450 [facility] Comment on above: Performed By: #### C BC ####[facility] Qvbupbtwxx6704 [place] [phone] Reagan RBC 3.88 106/ul Critically low 4.70-6.10 [facility] Comment on above: Performed By: #### C BC ####[facility] Oryxvkdkby9302 [place] [address]Dr. Anjali Reagan WBC 7.1 103/ul Normal 4.0-11.0 [facility] Comment on above: Performed By: #### C BC ####[facility] Whaorwkfbz6437 [place] [address]Dr. Anjali Reagan POINT OF CARE GLUCOSEon 01-31 Glucose [Mass/Vol] 219 mg/dL Critically high 74-106 [facility] Comment on above: Performed By: #### P OCGLUC ####[facility] Fsqljjyixn0749 [place] [address]Dr. Anjali Reagan Glucose [Mass/Vol] 136 mg/dL Critically high 74-106 [facility] Comment on above: Performed By: #### P OCGLUC ####[facility] Hdrodrxlmt0593 [place] [address]Dr. Anjali Reagan Glucose [Mass/Vol] 119 mg/dL Critically high 74-106 [facility] Comment on above: Performed By: #### P OCGLUC ####[facility] Kyurmnnsvb7998 [place] [address]DrVeronica Reagan PROF 14(COMP METB)on 021 Albumin [Mass/Vol] 2.8 g/dL Critically low 3.5-5.0 [facility] Comment on above: Performed By: #### C ALEA, BMP ####[facility] Fbenpnwkms0153 [place] [address]Dr. Anjali Reagan Albumin/Globulin [Mass ratio] 0.7 {ratio} Normal [facility] Comment on above: Performed By: #### C ALEA, BMP ####[facility] Wvvjtedsfc8607 [place] [address]Dr. Anjali Reagan ALP [Catalytic activity/Vol] 109 U/L Normal 38-126 [facility] Comment on above: Performed By: #### C ALEA, BMP ####[facility] Vznracckdd8282 [place] [address]Dr. Anjali Reagan ALT [Catalytic activity/Vol] 23 U/L Normal 21-72 [facility] Comment on above: Performed By: #### C MP, BMP ####[facility] Abtvmdxpgc104[address] [place], [place] [address]Dr. Anjali Reagan AST [Catalytic activity/Vol] 24 U/L Normal 17-59 [facility] Comment on above: Performed By: #### C MP, BMP ####[facility] Wtvwdxuvap3873[address] [place], [place] [address]Dr. Anjali Reagan Bilirubin [Mass/Vol] 0.4 mg/dL Normal 0.2-1.3 [facility] Comment on above: Performed By: #### C ALEA, BMP ####[facility] Zguxnfpphh7072[address] [place], [place] [address]Dr. Anjali Reagan Globulin (S) [Mass/Vol] 4.1 g/dL Normal [facility] Comment on above: Performed By: #### C ALEA, BMP ####[facility] Tnqfghhycr39[address] [place], [place] [address]Dr. Anjali Reagan Protein [Mass/Vol] 6.9 g/dL Normal 6.1-8.2 [facility] Comment on above: Performed By: #### C MP, BMP ####[facility] Vnlrxxgmvy9257[address] [place], [place] [address]Dr. Anjali Reagan PROF CHEM 8 (BAS METB)on Anion gap [Moles/Vol] 13.0 mmol/L Normal [facility] Comment on above: Performed By: #### C MP, BMP ####[facility] Zghrbrwlfi8106[address] [place], [place] [address]Dr. Anjali Reagan Calcium [Mass/Vol] 9.4 mg/dL Normal 8.4-10.2 [facility] Comment on above: Performed By: #### C MP, BMP ####[facility] Dcxqzmvrrm2859[address] [place], [place] [address]Dr. Anjali Reagan Chloride [Moles/Vol] 104 mmol/L Normal 98-107 [facility] Comment on above: Performed By: #### C MP, BMP ####[facility] Ukcgqllndw1014 [place] [phone]. Anjali Reagan CO2 [Moles/Vol] 27.7 mmol/L Normal 22.0-30.0 [facility] Comment on above: Performed By: #### C MP, BMP ####[facility] Hdbdvhxyfx9694 [place] [address]Dr. Anjali Reagan Creatinine [Mass/Vol] 1.19 mg/dL Normal 0.66-1.25 [facility] Comment on above: Performed By: #### C MP, BMP ####[facility] Xayyribpmx9676 [place] [address]Dr. Anjali Reagan EGFR-AF TONGAN >60 Normal >=60 [facility] Comment on above: Performed By: #### C ALEA, BMP ####[facility] Ucielywhiu3216[address] [place], [place] [address]Dr. Anjali Reagan EGFR-NON AF TONGAN >60 Normal >=60 [facility] Comment on above: Performed By: #### C ALEA, BMP ####[facility] Ezasidcsxc2061 [place] [address]Dr. Anjali Reagan Glucose [Mass/Vol] 81 mg/dL Normal 74-106 [facility] Comment on above: Performed By: #### C ALEA, BMP ####[facility] Odkitmxeeg6744[address] [place], [place] [address]Dr. Anjali Reagan Potassium [Moles/Vol] 4.1 mmol/L Normal 3.4-5.0 [facility] Comment on above: Performed By: #### C MP, BMP ####[facility] Yockbkmztg0302 [place] [address]Dr. Anjali Reagan Sodium [Moles/Vol] 141 mmol/L Normal 137-145 [facility] Comment on above: Performed By: #### C MP, BMP ####[facility] Ymueovsnhn75[address] [place], [place] [address]Dr. Anjali Reagan Urea nitrogen [Mass/Vol] 41.0 mg/dL Critically high 9.0-20 .0 [facility] Comment on above: Performed By: #### C MP, BMP ####[facility] Zepgvywyro5153 [place] [address]Dr. Anjali Reagan Urea nitrogen/Creatinine [Mass ratio] 34.4 mg/mg Normal [facility] Comment on above: Performed By: #### C ALEA, BMP ####[facility] Xfoxmgrqrh7989 [place] [address]Dr. Anjali Reagan CBC W MANUAL DIFFon 02-10-20 21 ANISOCYTOSIS SLIGHT Normal [facility] Comment on above: Performed By: #### C BCMAN ####[facility] Vppkjzznmr4313 [place] [address]Dr. Anjali Reagan ATYPICAL LYMPH # Normal [facility] Comment on above: Performed By: #### C CORI ####[facility] Ecuondklsn70[address] [place], [place] [address]Dr. Anjali Reagan ATYPICAL LYMPH % Normal [facility] Comment on above: Performed By: #### C CORI ####[facility] Locpnbhntb0016[address] [place], [place] [address]Dr. Yilan Reagan BAND # Normal 0.0-0.3 [facility] Comment on above: Performed By: #### C CORI ####[facility] Yoknymfchy8516[address] [place], [place] [address]Dr. Yilan Reagan BAND % Normal 0-5 [facility] Comment on above: Performed By: #### C BCFIONA ####[facility] Efnobmklij3086[address] [place], [place] [address]Dr. Anjali Reagan BASOM # 0.00 103/ul Normal 0.00-0.10 [facility] Comment on above: Performed By: #### C SAUMYAMAN ####[facility] Ayouocfiem6156[address] [place], [place] [address]Dr. Anjali Reagan BASOM % 0.0 % Critically low 0.2-2.0 [facility] Comment on above: Performed By: #### C BCFIONA ####[facility] Gammdhivlt5[address] [place], [place] [address]Dr. Yilan Reagan BLAST # Normal [facility] Comment on above: Performed By: #### C CORI ####[facility] Bxqoijnxgv0778 [place] [phone]. Anjali Reagan BLAST % Normal [facility] Comment on above: Performed By: #### C CORI ####[facility] Saywrqjtav5136 [place] [phone]. Anjali Reagan CORRECTED WBC Normal 4.0-11.0 [facility] Comment on above: Performed By: #### C CORI ####[facility] Kjoamnufvf7175 [place] [phone]. Anjali Reagan EOS # 0.00 103/ul Normal 0.00-0.70 [facility] Comment on above: Performed By: #### C CORI ####[facility] Gczsbmohxc6971 [place] [address]Dr. Anjali Reagan EOS% 0.0 % Critically low 0.9-7.0 [facility] Comment on above: Performed By: #### C CORI ####[facility] Bifmhscuac9694 [place] [phone]. Anjali Reagan HCT 31.1 % Critically low 42.0-54.0 [facility] Comment on above: Performed By: #### C CORI ####[facility] Nmgrprkihl9355 [place] [phone]. Anjali Reagan HGB 9.6 g/dl Critically low 14.0-18.0 [facility] Comment on above: Performed By: #### C CORI ####[facility] Tjageijtga1898 [place] [phone]. Anjali Reagan LYMPHM # 0.73 103/ul Critically low 1.20-3.80 [facility] Comment on above: Performed By: #### C CORI ####[facility] Jsvycmspwk5000 [place] [phone]. Anjali Reagan LYMPHM% 7.0 % Critically low 20.5-60.0 [facility] Comment on above: Performed By: #### C CORI ####[facility] Efolsmjnlw[address] [place], [place] [address]Dr. Anjali Reagan MCH 25.1 pg Critically low 25.9-34.0 [facility] Comment on above: Performed By: #### C CORI ####[facility] Dlfqmlojtq5425 [place] [phone]. Anjali Reagan MCHC 30.9 g/dl Normal 29.9-35.2 [facility] Comment on above: Performed By: #### C CORI ####[facility] Iwyvomhdls0961 [place] [phone]. Anjali Reagan MCV 81.4 fL Normal 80.0-94.0 [facility] Comment on above: Performed By: #### C CORI ####[facility] Jcrlteurmj8225 [place] [phone]. Anjali Reagan METAMYELOCYTE # Normal [facility] Comment on above: Performed By: #### C CORI ####[facility] Kewqqthtld2892 [place] [phone]. Anjali Reagan METAMYELOCYTE % Normal [facility] Comment on above: Performed By: #### C CORI ####[facility] Azbpmyvjeh0074 [place] [phone]. Anjali Reagan MONOM# 0.31 103/ul Normal 0.30-0.80 [facility] Comment on above: Performed By: #### C CORI ####[facility] Vojyepdoyu1745 [place] [phone]. Anjali Reagan MONOM% 3.0 % Normal 1.7-12.0 [facility] Comment on above: Performed By: #### C CORI ####[facility] Ojlwebjmor8102 [place] [phone]. Anjali Reagan MPV 9.9 fL Normal 9.5-13.5 [facility] Comment on above: Performed By: #### C CORI ####[facility] Mafunwyiju3172 [place] [phone]. Anjali Reagan MYELOCYTE # Normal [facility] Comment on above: Performed By: #### C CORI ####[facility] Kpqbmrqfkl2117 [place] [phone]. Anjali Reagan MYELOCYTE % Normal [facility] Comment on above: Performed By: #### C CORI ####[facility] Mabovhrygt5932 [place] [phone]. Anjali Reagan NRBC Normal [facility] Comment on above: Performed By: #### C CORI ####[facility] Pcdmwfecfg0136 [place] [phone]. Anjali Reagan OVALOCYTES SLIGHT Normal [facility] Comment on above: Performed By: #### C CORI ####[facility] Gcntfipxds4920 [place] [phone]. Anjali Reagan PLT 211 103/ul Normal 150-450 [facility] Comment on above: Performed By: #### C CORI ####[facility] Zdxrwlpwsy6034 [place] [phone]. Anjali Reagan POIKILOCYTOSIS SLIGHT Normal [facility] Comment on above: Performed By: #### C CORI ####[facility] Cwfmeobgim[address] [place], [place] [address]Dr. Anjali Reagan RBC 3.82 106/ul Critically low 4.70-6.10 [facility] Comment on above: Performed By: #### C CORI ####[facility] Rzklscckef0518 [place] [phone]. Anjali Reagan RDW 18.4 % Critically high 11.0-15.0 [facility] Comment on above: Performed By: #### C CORI ####[facility] Sgsnodckgi0786 [place] [phone]. Anjali Reagan SEG # 9.36 103/ul Critically high 1.40-6.50 [facility] Comment on above: Performed By: #### C CORI ####[facility] Zkbzxtpmww4659 [place] [phone]. Anjali Reagan SEG % 90.0 % Critically high 43.0-75.0 [facility] Comment on above: Performed By: #### C CORI ####[facility] Uarrujoisf8396 [place] [address]Dr. Anjali Reagan WBC 10.4 103/ul Normal 4.0-11.0 [facility] Comment on above: Performed By: #### C BCMAN ####[facility] Jrzucsikjf5498 [place] [address]Dr. Anjali Reagan HEP B SURFACE ANTIGEN SCREEN on 02-09-2021 HBsAg Screen Negative Normal Negative [facility] Comment on above: Performed By: #### H BSANS ####[facility] Pfvqbrzthn[address] [place], [place] [address]Dr. Anjali Reagan HEPATITIS C ANTIBODYon 02-09 Hep C Virus Ab <0.1 Normal 0.0-0.9 [facility] Comment on above: Result Comment: Nega tive: < 0.8 Indeterminate: 0.8 - 0.9 Positive: > 0.9 . The CDC recommends that a positive HCV antibody result be followed up with a HCV Nucleic Acid Amplification test (943595). Performed By: #### H CV ####[facility] Goqhdxlgji4[address] [place], [place] [address]Dr. Anjali Reagan HIV 1 AND 2 WITH REFLEXon HIV Screen 4th Generation wRfx Non-Reactive Normal Non Reactive [facility] Comment on above: Performed By: #### H IV12 ####[facility] Oafzxpxtts4115 [place] [address]Dr. Anjali Reagan POINT OF CARE GLUCOSEon 01-31 Glucose [Mass/Vol] 170 mg/dL Critically high 74-106 [facility] Comment on above: Performed By: #### P OCGLUC ####[facility] Rcjaisnzpo6406 [place] [address]Dr. Anjali Reagan Glucose [Mass/Vol] 265 mg/dL Critically high 74-106 [facility] Comment on above: Performed By: #### P OCGLUC ####[facility] Kvhrvfrebm96[address] [place], [place] [address]Dr. Anjali Reagan Glucose [Mass/Vol] 319 mg/dL Critically high 74-106 [facility] Comment on above: Performed By: #### P OCGLUC ####[facility] Nkmmeedwls9000 [place] [address]Dr. Anjali Reagan PROF 14(COMP METB)on 021 Albumin [Mass/Vol] 2.8 g/dL Critically low 3.5-5.0 [facility] Comment on above: Performed By: #### C MP ####[facility] Qtagvlitfd1490 [place] [address]Dr. Anjali Reagan Albumin/Globulin [Mass ratio] 0.7 {ratio} Normal [facility] Comment on above: Performed By: #### C MP ####[facility] Otnubrkipl[address] [place], [place] [address]Dr. Anjali Reagan ALP [Catalytic activity/Vol] 117 U/L Normal 38-126 [facility] Comment on above: Performed By: #### C MP ####[facility] Vrzynmwpgo77[address] [place], [place] [address]Dr. Anjali Reagan ALT [Catalytic activity/Vol] 21 U/L Normal 21-72 [facility] Comment on above: Performed By: #### C MP ####[facility] Sgogumcjrt7554[address] [place], [place] [address]Dr. Anjali Reagan Anion gap [Moles/Vol] 13.0 mmol/L Normal [facility] Comment on above: Performed By: #### C MP ####[facility] Orljtubrbv6437[address] [place], [place] [address]Dr. Anjali Reagan AST [Catalytic activity/Vol] 21 U/L Normal 17-59 [facility] Comment on above: Performed By: #### C MP ####[facility] Yplveugmgd4978[address] [place], [place] [address]Dr. Anjali Reagan Bilirubin [Mass/Vol] 0.5 mg/dL Normal 0.2-1.3 [facility] Comment on above: Performed By: #### C MP ####[facility] Wudvmdpedz3342[address] [place], [place] [address]Dr. Anjali Reagan Calcium [Mass/Vol] 9.3 mg/dL Normal 8.4-10.2 [facility] Comment on above: Performed By: #### C MP ####[facility] Ehdtprgntb[address] [place] [address]Dr. Anjali Reagan Chloride [Moles/Vol] 100 mmol/L Normal 98-107 [facility] Comment on above: Performed By: #### C MP ####[facility] Nhinunllzk9312 [place] [phone]. Anjali Reagan CO2 [Moles/Vol] 27.5 mmol/L Normal 22.0-30.0 [facility] Comment on above: Performed By: #### C MP ####[facility] Pkpvfpupvg3784[address] [place], [place] [address]Dr. Anjali Reagan Creatinine [Mass/Vol] 1.49 mg/dL Critically high 0.66-1.25 [facility] Comment on above: Performed By: #### C MP ####[facility] Oyinxnfxfv1299[address] [place], [place] [address]Dr. Anjali Reagan EGFR-AF TONGAN 58 mL/min/1.73m2 Critically low >=60 [facility] Comment on above: Performed By: #### C MP ####[facility] Miorroiqmf1244[address] [place], [place] [address]Dr. Anjali Reagan EGFR-NON AF TONGAN 48 mL/min/1.73m2 Critically low >=60 [facility] Comment on above: Performed By: #### C MP ####[facility] Zugvqnidsx39[address] [place], [place] [address]Dr. Anjali Reagan Globulin (S) [Mass/Vol] 4.2 g/dL Normal [facility] Comment on above: Performed By: #### C MP ####[facility] Tifkveoopg9275[address] [place], [place] [address]Dr. Anjali Reagan Glucose [Mass/Vol] 276 mg/dL Critically high 74-106 [facility] Comment on above: Performed By: #### C MP ####[facility] Mefmnxisob75[address] [place], [place] [address]Dr. Anjali Reagan Potassium [Moles/Vol] 4.5 mmol/L Normal 3.4-5.0 [facility] Comment on above: Performed By: #### C MP ####[facility] Etrqgyszdo9478 [place] [phone]. Biancaramona Reagan Protein [Mass/Vol] 7.0 g/dL Normal 6.1-8.2 [facility] Comment on above: Performed By: #### C MP ####[facility] Hssiwymamc6612 [place] [phone]. Biancaramona Reagan Sodium [Moles/Vol] 136 mmol/L Critically low 137-145 [facility] Comment on above: Performed By: #### C MP ####[facility] Hgygawsdbv8053 [place] [address]Dr. Anjali Reagan Urea nitrogen [Mass/Vol] 42.0 mg/dL Critically high 9.0-20 .0 [facility] Comment on above: Performed By: #### C MP ####[facility] Cvxpuvlqgo[address] [place], [place] [address]Dr. Anjali Reagan Urea nitrogen/Creatinine [Mass ratio] 28.2 mg/mg Normal [facility] Comment on above: Performed By: #### C MP ####[facility] Qfcribehoo2269 [place] [address]Dr. Anjali Reagan RPR QUANTon 02-09-2021 Rapid Plasma Reagin, Quant Non-Reactive Normal NonRea<1:1 [facility] Comment on above: Performed By: #### R PRQ ####[facility] Yrwuuclyds2394[address] [place], [place] [address]Dr. Anjali Reagan XR ANKLE RT 2Von 02-09-2021 XR ANKLE RT 2V Normal [facility] XR TIB_FIB RT 2Von XR TIB_FIB RT 2V Normal [facility] CRPon 02-08-2021 CRP 3.2 mg/dL Critically high <=1.0 [facility] Comment on above: Performed By: #### C RP ####[facility] Harehgfusb8729[address] [place], [place] [address]Dr. Anjali Reagan CULTURE ANAEROBICon 02-09-20 21 CULTURE ANAEROBIC Specimen Comments: RIGHT FOOT IRRIGATION SWAB Culture Observations: NO GROWTH AT 72 HRS Normal [facility] Comment on above: Performed By: #### A NACX ####[facility] Nnhjnsahkq6579 [place], [place] [address]Fq. Yilan Reagan CULTURE ANAEROBIC Specimen Comments: RIGHT LEG REAMINGS Culture Observations: NO GROWTH OF ANAEROBES AT 72 HOURS. [facility] Comment on above: Performed By: #### A NACX ####[facility] Gsykvfyxhe8046 [place], [place] [address]Tu. Yilan Reagan CULTURE ANAEROBIC Culture Observations : NO GROWTH AT 72 HRS [facility] Comment on above: Performed By: #### A NACX ####[facility] Uqgnbctayq[address] [place] [address]. Yilan Reagan CULTURE ANAEROBIC Specimen Comments: RIGHT TIBIA BONE Culture Observations: NO GROWTH AT 72 HRS [facility] Comment on above: Performed By: #### A NACX ####[facility] Aelxwvgpli[address] [place], [place] [address]Dr. Yilan Reagan CULTURE ANAEROBIC Specimen Comments: RIGHT CALCANEOUS BONE Culture Observations: NO GROWTH OF ANAEROBES AT 72 HOURS. [facility] Comment on above: Performed By: #### A NACX ####[facility] Vzaojisvhy[address] [place], [place] [address]Dr. Yilan Reagan CULTURE ANAEROBIC Specimen Comments: RIGHT ANKLE ABSCESS Culture Observations: NO GROWTH AT 72 HRS [facility] Comment on above: Performed By: #### A NACX ####[facility] Wxonrdzxci7[address] [place], [place] [address]Dr. Yilan Reagan CULTURE OTHERon 02-08-2021 CULTURE OTHER Specimen Comments: RIGHT LEG REAMINGS Culture Observations: NORMAL SKIN ARELI. [facility] Comment on above: Performed By: #### O THCX ####[facility] Zumgrvuhgh8740 [place], [place] [address]Qx. Yilan Reagan CULTURE OTHER Specimen Comments: RIGHT FOOT IRRIGATION SWAB Culture Observations: NO GROWTH AT 72 HRS [facility] Comment on above: Performed By: #### O THCX ####[facility] Mgqstweobv[address] [place] [address]Kl. Yilan Reagan CULTURE OTHER Specimen Comments: RIGHT CALCANEOUS BONE Culture Observations: NORMAL SKIN ARELI. Normal [facility] Comment on above: Performed By: #### O THCX ####[facility] Tlaglmrsjy3146 [place] [phone]. Anjali Reagan CULTURE OTHER Specimen Comments: RIGHT TIBIA BONE Culture Observations: NO GROWTH AT 72 HRS Normal [facility] Comment on above: Performed By: #### O THCX ####[facility] Rotppsufro0155 [place] [phone]. Anjali Reagan CULTURE OTHER Specimen Comments: RIGHT TALUS BONE Culture Observations: NORMAL SKIN ARELI. Normal [facility] Comment on above: Performed By: #### O THCX ####[facility] Eryhktycpf5006 [place] [phone]. Anjali Reagan CULTURE OTHER Specimen Comments: RIGHT ANKLE ABSCESS Culture Observations: NO GROWTH AT 72 HRS Normal [facility] Comment on above: Performed By: #### O THCX ####[facility] Wxqkuzxfkj[address] [place], [place] [address]Dr. Anjali Reagan GRAM STAINon 02-08-2021 COMMENTS NO ORGANISMS OBSERVED Normal [facility] Comment on above: Performed By: #### G STAIN ####[facility] Erlgfuyyzr[address] [place], [place] [address]Dr. Anjali Reagan DIPHTHEROIDS Normal [facility] Comment on above: Performed By: #### G STAIN ####[facility] Wibvqnrptb9493 [place] [phone]. Anjali Reagan EPITHELIALS Normal [facility] Comment on above: Performed By: #### G STAIN ####[facility] Ixdshgfmdy5004 [place] [phone]. Anjali Reagan FUNGAL ELEMENTS Normal [facility] Comment on above: Performed By: #### G STAIN ####[facility] Mvjswsdawt[address] [place], [place] [address]Dr. Anjali Reagan GRAM NEG BACILLI Normal [facility] Comment on above: Performed By: #### G STAIN ####[facility] Kydporbfep[address] [place], [place] [address]Dr. Anjali Reagan GRAM NEG DIPPLOCOCCI Normal [facility] Comment on above: Performed By: #### G STAIN ####[facility] Jwjpbbqemw1863 [place] [address]Dr. Anjali Reagan GRAM POS BACILLI Normal [facility] Comment on above: Performed By: #### G STAIN ####[facility] Scspcuultw3835 [place] [address]Dr. Anjali Reagan GRAM POSITIVE COCCI Normal [facility] Comment on above: Performed By: #### G STAIN ####[facility] Btagkfnene3850 [place] [address]Dr. Anjali Reagan GRAM STAIN SOURCE RIGHT LEG REAMINGS Normal [facility] Comment on above: Performed By: #### G STAIN ####[facility] Alolnzcgss[address] [place], [place] [address]Dr. Anjali Reagan GRAM STAIN SOURCE RIGHT FOOT POST IRRIGATION SWAB Normal [facility] Comment on above: Performed By: #### G STAIN ####[facility] Bwdgixaxfo6[address] [place], [place] [address]Dr. Anjali Reagan GS_DIPTH Normal [facility] Comment on above: Performed By: #### G STAIN ####[facility] Jagmumotwl56[address] [place] [address]Dr. Anjali Reagan WBC MODERATE Normal [facility] Comment on above: Performed By: #### G STAIN ####[facility] Rjtlafavct[address] [place], [place] [address]Dr. Anjali Reagan WBC NONE SEEN Normal [facility] Comment on above: Performed By: #### G STAIN ####[facility] Pusnhesdty3[address] [place] [address]Dr. Anjali Reagan COMMENTS NO ORGANISMS OBSERVED Normal [facility] Comment on above: Performed By: #### G STAIN ####[facility] Icuppsirro1538[address] [place], [place] [address]Dr. Anjali Reagan DIPHTHEROIDS Normal [facility] Comment on above: Performed By: #### G STAIN ####[facility] Ymcupygpnf03[address] [place] [address]Dr. Anjali Reagan EPITHELIALS Normal [facility] Comment on above: Performed By: #### G STAIN ####[facility] Nswsjgxniu4910 [place] [phone]. Anjali Reagan FUNGAL ELEMENTS Normal [facility] Comment on above: Performed By: #### G STAIN ####[facility] Fmwvfgjwco3034 [place] [phone]. Anjali Reagan GRAM NEG BACILLI Normal [facility] Comment on above: Performed By: #### G STAIN ####[facility] Fadlnnlssv8706 [place] [address]Dr. Anjali Reagan GRAM NEG DIPPLOCOCCI Normal [facility] Comment on above: Performed By: #### G STAIN ####[facility] Yrdylnhqxe9338 [place] [address]Dr. Anjali Reagan GRAM POS BACILLI Normal [facility] Comment on above: Performed By: #### G STAIN ####[facility] Uafluqqnsh47[address] [place], [place] [address]Dr. Anjali Reagan GRAM POSITIVE COCCI Normal [facility] Comment on above: Performed By: #### G STAIN ####[facility] Uxmgkwqpeq7102 [place] [address]Dr. Anjali Reagan GRAM STAIN SOURCE RIGHT TIBIA BONE Normal [facility] Comment on above: Performed By: #### G STAIN ####[facility] Lrfggbprkp4253 [place] [address]Dr. Anjali Reagan GRAM STAIN SOURCE RIGHT CALCANEOUS BONE Normal [facility] Comment on above: Performed By: #### G STAIN ####[facility] Khzhjbywlk8457 [place] [address]Dr. Anjali Reagan GRAM STAIN SOURCE RIGHT TALUS BONE Normal [facility] Comment on above: Performed By: #### G STAIN ####[facility] Ezcfohrcrn3947 [place] [address]Dr. Anjali Reagan GS_DIPTH Normal [facility] Comment on above: Performed By: #### G STAIN ####[facility] Jwmwvuyqcl7648 [place] [address]Dr. Anjali Reagan WBC NONE SEEN Normal [facility] Comment on above: Performed By: #### G STAIN ####[facility] Mmcjdusndh9993 [place] [phone]. Anjali Reagan WBC FEW Normal [facility] Comment on above: Performed By: #### G STAIN ####[facility] Loxzdqwzvk8269 [place] [phone]. Anjali Reagan COMMENTS NO ORGANISMS OBSERVED Normal [facility] Comment on above: Performed By: #### G STAIN ####[facility] Rkkyjxercx2911 [place] [phone]. Anjali Reagan DIPHTHEROIDS Normal [facility] Comment on above: Performed By: #### G STAIN ####[facility] Mmzxsejegj5574 [place] [address]Dr. Anjali Reagan EPITHELIALS Normal [facility] Comment on above: Performed By: #### G STAIN ####[facility] Cwvkopxrgw15[address] [place], [place] [address]Dr. Anjali Reagan FUNGAL ELEMENTS Normal [facility] Comment on above: Performed By: #### G STAIN ####[facility] Hikjkcfekz2275[address] [place], [place] [address]Dr. Anjali Reagan GRAM NEG BACILLI Normal [facility] Comment on above: Performed By: #### G STAIN ####[facility] Kzetqngfnk3463[address] [place], [place] [address]Dr. Anjali Reagan GRAM NEG DIPPLOCOCCI Normal [facility] Comment on above: Performed By: #### G STAIN ####[facility] Veegrcalac8525 [place] [address]Dr. Anjali Reagan GRAM POS BACILLI Normal [facility] Comment on above: Performed By: #### G STAIN ####[facility] Phshcirlvf6056 [place] [address]Dr. Anjali Reagan GRAM POSITIVE COCCI Normal [facility] Comment on above: Performed By: #### G STAIN ####[facility] Baxcvdlljz0646 [place] [address]Dr. Anjali Reagan GRAM STAIN SOURCE RIGHT FOOT ABSCESS SWAB Normal [facility] Comment on above: Performed By: #### G STAIN ####[facility] Hjqwaefres3116 [place] [address]Dr. Anjali Reagan GS_DIPTH Normal [facility] Comment on above: Performed By: #### G STAIN ####[facility] Ejpbxlcmbn4926 [place] [address]Dr. Anjali Tze WBC RARE Normal [facility] Comment on above: Performed By: #### G STAIN ####[facility] Ckrbncrckl5047 [place] [phone]. Anjali Tez HIV 1/2 RAPID (EXPOSURE ONLY )on 02-08-2021 HIV AB Negative [facility] Comment on above: Performed By: #### R PDHIV ####[facility] Alxbtakodv033[address] [place], [place] [address]Dr. Anjali Reagan HIV AG Negative [facility] Comment on above: Performed By: #### R PDHIV ####[facility] Sdrryekhwl7644[address] [place], [place] [address]Dr. Biancaramona Tez INTERNAL CONTROLS Within Normal Limits Normal Wi thin Normal Limits [facility] Comment on above: Performed By: #### R PDHIV ####[facility] Ydbgwhnova[address] [place], [place] [address]Dr. Anjali Reagan RAPID HIV INFO SEE BELOW [facility] Comment on above: Result Comment: This test is used for the initial screening of the exposure source. Confirmation of all results will be obtained through reference lab testing. Performed By: #### R PDHIV ####[facility] Mnyihnzhif[address] [place], [place] [address]Dr. Biancaramona Tez POINT OF CARE GLUCOSEon 11-0 Glucose [Mass/Vol] 400 mg/dL Critically high 74-106 [facility] Comment on above: Performed By: #### P OCGLUC ####[facility] Vjrxoitadu4182[address] [place], [place] [address]Dr. Biancaramona Tez Glucose [Mass/Vol] 373 mg/dL Critically high 74-106 [facility] Comment on above: Performed By: #### P OCGLUC ####[facility] Bxcodooqhr0946[address] [place], [place] [address]Dr. Biancaramona Reagan Glucose [Mass/Vol] 159 mg/dL Critically high 74-106 [facility] Comment on above: Performed By: #### P OCGLUC ####[facility] Ocdqwrbzzu0777 [place] [address]Dr. Anjali Reagan Glucose [Mass/Vol] 160 mg/dL Critically high 74-106 [facility] Comment on above: Performed By: #### P OCGLUC ####[facility] Futcmotgca8415 [place] [address]Dr. Anjali Reagan SED RATE WESTERGRENon 2020 SED RATE 51 mm/hr Critically high <=20 [facility] Comment on above: Performed By: #### S EDR ####[facility] Pfcfdipcbm4[address] [place], [place] [address]Dr. Anjali Reagan CBC W MANUAL DIFFon 02-06-20 21 ATYPICAL LYMPH # Normal [facility] Comment on above: Performed By: #### C BCMAN ####[facility] Dwzpcayatp9[address] [place], [place] [address]Dr. Anjali Reagan ATYPICAL LYMPH % Normal [facility] Comment on above: Performed By: #### C BCMAN ####[facility] Daehxbhqjb9[address] [place], [place] [address]Dr. Anjali Reagan BAND # 0.2 103/ul Normal 0.0-0.3 [facility] Comment on above: Performed By: #### C BCMAN ####[facility] Ptpgebirxg664[address] [place], [place] [address]Dr. Anjali Reagan BAND % 3 % Normal 0-5 [facility] Comment on above: Performed By: #### C BCMAN ####[facility] Boveiftsvy4356[address] [place], [place] [address]Dr. Anjali Reagan BASOM # 0.07 103/ul Normal 0.00-0.10 [facility] Comment on above: Performed By: #### C BCMAN ####[facility] Iarkvvhrhh[address] [place], [place] [address]Dr. Anjali Reagan BASOM % 1.0 % Normal 0.2-2.0 [facility] Comment on above: Performed By: #### C BCMAN ####[facility] Arhsqwviot1399 [place], [place] [address]Yy. Anjali Reagan BLAST # Normal [facility] Comment on above: Performed By: #### C BCMAN ####[facility] Qkdgzgptry3183 [place] [phone]. Anjali Reagan BLAST % Normal [facility] Comment on above: Performed By: #### C BCMAN ####[facility] Qguclktjay6150 [place] [phone]. Anjali Reagan CORRECTED WBC Normal 4.0-11.0 [facility] Comment on above: Performed By: #### C BCMAN ####[facility] Zwwunqvztl3256 [place] [address]Dr. Anjali Reagan EOS # 0.57 103/ul Normal 0.00-0.70 [facility] Comment on above: Performed By: #### C BCFIONA ####[facility] Vzpdllwcqk7673 [place] [address]Dr. Anjali Reagan EOS% 8.0 % Critically high 0.9-7.0 [facility] Comment on above: Performed By: #### C BCMAN ####[facility] Wsuclcuaid4643 [place] [phone]. Anjali Reagan HCT 32.9 % Critically low 42.0-54.0 [facility] Comment on above: Performed By: #### C BCFIONA ####[facility] Kpvqasmddi6381 [place] [phone]. Anjali Reagan HGB 10.2 g/dl Critically low 14.0-18.0 [facility] Comment on above: Performed By: #### C BCMAN ####[facility] Ezsokrcgzi8397 [place] [phone]. Anjali Reagan LYMPHM # 0.78 103/ul Critically low 1.20-3.80 [facility] Comment on above: Performed By: #### C BCMAN ####[facility] Hrsyvywqbf1041 [place] [phone]. Anjali Reagan LYMPHM% 11.0 % Critically low 20.5-60.0 [facility] Comment on above: Performed By: #### C CORI ####[facility] Aygzavtodw0055 [place] [address]Dr. Anjali Reagan MCH 24.9 pg Critically low 25.9-34.0 [facility] Comment on above: Performed By: #### C CORI ####[facility] Bacuyysktw5328 [place] [phone]. Anjali Reagan MCHC 31.0 g/dl Normal 29.9-35.2 [facility] Comment on above: Performed By: #### C CORI ####[facility] Bjelryyqut2727 [place] [phone]. Anjali Reagan MCV 80.4 fL Normal 80.0-94.0 [facility] Comment on above: Performed By: #### C CORI ####[facility] Uxlljrovyh5[address] [place], [place] [address]Dr. Anjali Reagan METAMYELOCYTE # Normal [facility] Comment on above: Performed By: #### C CORI ####[facility] Dulhhhfdup8388 [place] [phone]. Anjali Reagan METAMYELOCYTE % Normal [facility] Comment on above: Performed By: #### C CORI ####[facility] Qwdvnzqqrh1925 [place] [address]Dr. Anjali Reagan MONOM# 0.57 103/ul Normal 0.30-0.80 [facility] Comment on above: Performed By: #### C CORI ####[facility] Qcvrottygd3645 [place] [phone]. Anjali Reagan MONOM% 8.0 % Normal 1.7-12.0 [facility] Comment on above: Performed By: #### C CORI ####[facility] Rewrhvqvxo1897 [place] [phone]. Anjali Reagan MPV 9.2 fL Critically low 9.5-13.5 [facility] Comment on above: Performed By: #### C CORI ####[facility] Abimbueirv9651 [place] [phone]. Anjali Reagan MYELOCYTE # Normal [facility] Comment on above: Performed By: #### C CORI ####[facility] Tjvhynojot3397 [place] [phone]. Anjali Reagan MYELOCYTE % Normal [facility] Comment on above: Performed By: #### C CORI ####[facility] Hahktkdaay5005 [place] [phone]. Anjali Reagan NRBC Normal [facility] Comment on above: Performed By: #### C CORI ####[facility] Apjlggpqjm4174 [place] [phone]. Anjali Reagan OVALOCYTES 1+ Normal [facility] Comment on above: Performed By: #### C CORI ####[facility] Frignpnqlm0790 [place] [phone]. Anjali Reagan PLT 209 103/ul Normal 150-450 [facility] Comment on above: Performed By: #### C CORI ####[facility] Bflwyqprqc2121 [place] [phone]. Anjali Reagan RBC 4.09 106/ul Critically low 4.70-6.10 [facility] Comment on above: Performed By: #### C CORI ####[facility] Wscpltfjyf8929 [place] [address]Dr. Anjali Reagan RDW 18.2 % Critically high 11.0-15.0 [facility] Comment on above: Performed By: #### C CORI ####[facility] [address]qscmcm[address] [place] [id number]. Anjali Reagan SEG # 4.90 103/ul Normal 1.40-6.50 [facility] Comment on above: Performed By: #### C CORI ####[facility] Kdwidvkaox6[address] [place] [id number]. Anjali Reagan SEG % 69.0 % Normal 43.0-75.0 [facility] Comment on above: Performed By: #### C CORI ####[facility] Boywtxlvvj[address] [place] [address]Dr. Anjali Reagan WBC 7.1 103/ul Normal 4.0-11.0 [facility] Comment on above: Performed By: #### C BCMAN ####[facility] Uvwifiwxmb[address] [place] [id number]. Anjali Reagan CT ABD/PELVIS WO CONon 02-05 CT ABD/PELVIS WO CON Normal [facility] Covid-19 PCR (CVDTB)on SARS-CoV-2 (COVID-19) RNA MEREDITH+probe Ql (Unsp spec) Not detected Normal NOT DETECTED [facility] Comment on above: Result Comment: This test is not yet approved or cleared by the [place] FDA. When there are no FDA-approved or cleared tests available, and other criteria are met, FDA can make tests available under an emergency access mechanism called an Emergency Use Authorization (EUA). The EUA for this test is supported by the Doctor Of Podiatry of Health and Human Service's (HHS's) declaration that circumstances exist to justify the emergency use of in vitro diagnostics for the detection and/or diagnosis of the virus that causes COVID-19. This EUA will remain in effect (meaning this test can be used) for the duration of the COVID-19 declaration justifying emergency of IVDs, unless it is terminated or revoked by FDA (after which the test may no longer be used).When diagnostic testing is negative, the possibility of a false negative should be considered inthe context of a patient's recent exposures and the presence of clinical signs and symptomsconsistent with SARS-CoV-2. Performed By: #### C VDTBH ####[facility] Frpxuvglyb35[address] [place] [phone]. Anjali Reagan ER URINE PROFILEon Bilirubin Ql (U) Negative Normal NEGATIVE [facility] Comment on above: Performed By: #### E RUR ####[facility] Xchsaticmo4952 [place] [phone] Biancaramona Reagan Clarity (U) CLEAR Normal CLEAR [facility] Comment on above: Performed By: #### E RUR ####[facility] Ocjvjyguih4[address] [place] [address]DrVeronica Reagan Color (U) LT. YELLOW Normal YELLOW [facility] Comment on above: Performed By: #### E RUR ####[facility] Hqiigmfq[address] [place], [place] [address]Dr. Anjali Reagan ERUAHD A micrscopic examination will be performed if indicated. Normal [facility] Comment on above: Performed By: #### E RUR ####[facility] Ecmsgjqstw[address] [place], [place] [address]Dr. Anjali Reagan Glucose Ql (U) Negative Normal NEGATIVE The [facility] Comment on above: Performed By: #### E RUR ####[facility] Vfbclhiaxd453[address] [place], [place] [address]Dr. Anjali Reagan Hemoglobin Ql (U) Negative Normal NEGATIVE [facility] Comment on above: Performed By: #### E RUR ####[facility] Ngiwojbgml4[address] [place], [place] [address]Dr. Anjali Reagan Ketones Ql (U) Negative Normal NEGATIVE [facility] Comment on above: Performed By: #### E RUR ####[facility] Cgrahoxqeu503[address] [place], [place] [address]Dr. Anjali Reagan LEUKOCYTES Negative Normal NEGATIVE [facility] Comment on above: Performed By: #### E RUR ####[facility] Tlhsemvhcs[address] [place], [place] [address]Dr. Anjali Reagan Nitrite Ql (U) Negative Normal NEGATIVE [facility] Comment on above: Performed By: #### E RUR ####[facility] Inneplwzee8202[address] [place], [place] [address]Dr. Anjali Reagan pH (U) 6.0 [pH] Normal 5-9 [facility] Comment on above: Performed By: #### E RUR ####[facility] Coqbkivcoo23[address] [place], [place] [address]Dr. Anjali Reagan SPEC GRAVITY 1.015 Normal 1.005-<=1.0 25 [facility] Comment on above: Performed By: #### E RUR ####[facility] Tdkkeecufj[address] [place], [place] [address]Dr. Anjali Reagan UA PROTEIN TRACE Normal NEGATIVE/ TRACE [facility] Comment on above: Performed By: #### E RUR ####[facility] Uqfeomicur[address] [place], [place] [address]Dr. Anjali Reagan UR MICRO IND NOT INDICATED Normal [facility] Comment on above: Performed By: #### E RUR ####[facility] Sineicarih[address] [place] [address]Dr. Anjali Reagan Urobilinogen Qn (U) 0.2 {Geremias'U}/dL Normal 0.2 - 1. 0 [facility] Comment on above: Performed By: #### E RUR ####[facility] Rjcxegtfkv[address] [place], [place] [address]DrVeronica Reagan PROF 14(COMP METB)on 021 Albumin [Mass/Vol] 2.8 g/dL Critically low 3.5-5.0 [facility] Comment on above: Performed By: #### C MP ####[facility] Ytczghywlp[address] [place], [place] [address]Dr. Anjali Reagan Albumin/Globulin [Mass ratio] 0.6 {ratio} Normal [facility] Comment on above: Performed By: #### C MP ####[facility] Bufuexnikw11[address] [place], [place] [address]Dr. Anjali Reagan ALP [Catalytic activity/Vol] 125 U/L Normal 38-126 [facility] Comment on above: Performed By: #### C MP ####[facility] Ildofzhagr2382[address] [place], [place] [address]Dr. Anjali Reagan ALT [Catalytic activity/Vol] 22 U/L Normal 21-72 [facility] Comment on above: Performed By: #### C MP ####[facility] Icelcpizuf1427[address] [place], [place] [address]Dr. Anjali Reagan Anion gap [Moles/Vol] 13.1 mmol/L Normal [facility] Comment on above: Performed By: #### C MP ####[facility] Pmwrwjkdrx6072[address] [place], [place] [address]Dr. Anjali Reagan AST [Catalytic activity/Vol] 26 U/L Normal 17-59 [facility] Comment on above: Performed By: #### C MP ####[facility] Gdsgocfcnb65[address] [place] [address]Dr. Anjali Tez Bilirubin [Mass/Vol] 0.8 mg/dL Normal 0.2-1.3 [facility] Comment on above: Performed By: #### C MP ####[facility] Hosleleqxr7489[address] [place], [place] [address]Dr. Anjali Tez Calcium [Mass/Vol] 9.2 mg/dL Normal 8.4-10.2 [facility] Comment on above: Performed By: #### C MP ####[facility] Ywlohzamvr2568[address] [place], [place] [address]Dr. Anjali Tez Chloride [Moles/Vol] 98 mmol/L Normal 98-107 [facility] Comment on above: Performed By: #### C MP ####[facility] Mdkqczuhga8615[address] [place], [place] [address]Dr. Anjali Tez CO2 [Moles/Vol] 28.7 mmol/L Normal 22.0-30.0 [facility] Comment on above: Performed By: #### C MP ####[facility] Pgjkrwvcdb0875[address] [place], [place] [address]Dr. Anjali Tez Creatinine [Mass/Vol] 1.62 mg/dL Critically high 0.66-1.25 [facility] Comment on above: Performed By: #### C MP ####[facility] Rzvqtuuptt37[address] [place], [place] [address]Dr. Anjali Tez EGFR-AF TONGAN 52 mL/min/1.73m2 Critically low >=60 [facility] Comment on above: Performed By: #### C MP ####[facility] Whigialssm[address] [place], [place] [address]Dr. Anjali Reagan EGFR-NON AF TONGAN 43 mL/min/1.73m2 Critically low >=60 [facility] Comment on above: Performed By: #### C MP ####[facility] Qjwibxvgtk3[address] [place], [place] [address]Dr. Anjali Reagan Globulin (S) [Mass/Vol] 4.6 g/dL Normal [facility] Comment on above: Performed By: #### C MP ####[facility] Thzpnvcmot8786[address] [place], [place] [address]Dr. Biancaramona Tez Glucose [Mass/Vol] 192 mg/dL Critically high 74-106 [facility] Comment on above: Performed By: #### C MP ####[facility] Yorcdhyoxy747[address] [place], [place] [address]Dr. Anjali Reagan Potassium [Moles/Vol] 4.8 mmol/L Normal 3.4-5.0 [facility] Comment on above: Performed By: #### C MP ####[facility] Usicxqeivi109[address] [place], [place] [address]Dr. Anjali Reagan Protein [Mass/Vol] 7.4 g/dL Normal 6.1-8.2 [facility] Comment on above: Performed By: #### C MP ####[facility] Kuqjnncavz0835[address] [place], [place] [address]Dr. Anjali Reagan Sodium [Moles/Vol] 135 mmol/L Critically low 137-145 [facility] Comment on above: Performed By: #### C MP ####[facility] Bcqxvwmdig[address] [place], [place] [address]Dr. Anjali Reagan Urea nitrogen [Mass/Vol] 40.0 mg/dL Critically high 9.0-20 .0 [facility] Comment on above: Performed By: #### C MP ####[facility] Jrnwjrhcox9114[address] [place], [place] [address]Dr. Anjali Reagan Urea nitrogen/Creatinine [Mass ratio] 24.7 mg/mg Normal [facility] Comment on above: Performed By: #### C MP ####[facility] Fcfybykenp36[address] [place], [place] [address]Dr. Anjali Reagan PROF CHEM 8 (BAS METB)on Anion gap [Moles/Vol] 13.4 mmol/L Normal [facility] Comment on above: Performed By: #### B MP ####[facility] Odamdrcxgy[address] [place], [place] [address]Dr. Anjali Reagan Calcium [Mass/Vol] 9.3 mg/dL Normal 8.4-10.2 [facility] Comment on above: Performed By: #### B MP ####[facility] [address]viauqqgki[address] [place] [address]Dr. Anjali Reagan Chloride [Moles/Vol] 98 mmol/L Normal 98-107 [facility] Comment on above: Performed By: #### B MP ####[facility] Prikuidefb2840 [place] [address]Dr. Anjali Reagan CO2 [Moles/Vol] 28.8 mmol/L Normal 22.0-30.0 [facility] Comment on above: Performed By: #### B MP ####[facility] Dcchlhcnfs[address] [place], [place] [address]Dr. Anjali Reagan Creatinine [Mass/Vol] 1.72 mg/dL Critically high 0.66-1.25 [facility] Comment on above: Performed By: #### B MP ####[facility] Mwfuleifww15[address] [place], [place] [address]Dr. Anjali Reagan EGFR-AF TONGAN 49 mL/min/1.73m2 Critically low >=60 [facility] Comment on above: Performed By: #### B MP ####[facility] Hfxpahsiuf[address] [place], [place] [address]Dr. Anjali Reagan EGFR-NON AF TONGAN 40 mL/min/1.73m2 Critically low >=60 [facility] Comment on above: Performed By: #### B MP ####[facility] [address]ygwchkqtr[address] [place] [address]Dr. Anjali Reagan Glucose [Mass/Vol] 204 mg/dL Critically high 74-106 [facility] Comment on above: Performed By: #### B MP ####[facility] Yyhmuuhcse[address] [place], [place] [address]Dr. Anjali Reagan Potassium [Moles/Vol] 4.2 mmol/L Normal 3.4-5.0 [facility] Comment on above: Performed By: #### B MP ####[facility] R[address]tkcpvvc35[address] [place], [place] [address]Op. Anjali Reagan Sodium [Moles/Vol] 136 mmol/L Critically low 137-145 [facility] Comment on above: Performed By: #### B MP ####[facility] Nfc[address]zmoxk8[address] [place], [place] [address]Qk. Anjali Reagan Urea nitrogen [Mass/Vol] 35.0 mg/dL Critically high 9.0-20 .0 [facility] Comment on above: Performed By: #### B MP ####[facility] C[address]fke[address] [place], [place] [address]Dj. Anjali Reagan Urea nitrogen/Creatinine [Mass ratio] 20.3 mg/mg Normal [facility] Comment on above: Performed By: #### B MP ####[facility] Tqcrcdtbtm13[address] [place], [place] [address]Vs. Anjali Reagan CT ANKLE RT WO CONon 021 CT ANKLE RT WO CON Normal [facility] XR ANKLE RT MIN 3 VIEWSon XR ANKLE RT MIN 3 VIEWS Normal [facility] XR ANKLE RT MIN 3 VIEWSon XR ANKLE RT MIN 3 VIEWS Normal [facility] Otolaryngology Office/Clinic Noteon 01-19-2021 Otolaryngology Office/Clinic Note Chief Complaint 1 week post op postauricular mastoid flap for reconstruction of the ear/BCC. History of Present Illness Anai is a pleasant 65 year old male who returns today for a 1 week post op postauricular mastoid flap for reconstruction of the ear removal of basal cell carcinoma. Patient reports he has been able to keep his pain under control and feels good. Is also here status post audiogram and tympanogram. 01/12/21 Anai is a pleasant 65-year-old male who presents postop day 1 status post postauricular mastoid flap for reconstruction of the ear status post removal of basal cell carcinoma. Postop day 0 he had bleeding which was cauterized in our clinic and rebandaged. Today there is still some bleeding but much improved from previously. 12/15/20 Referred by pcp Irais to ENT for lesion left ear duration of 1 year. Concerned about BCC. Denies any pain or redness from the area. He is also having right ear pain and congestion today with difficulty hearing duration 6+ months. Previous ENT management by Dr. Freed. Previous pathology by physician in [place] about 1 year ago. PMHx of multiple surgeries in right foot. Review of Systems All ochoa are negative unless otherwise indicated by a Y Skin Lesion--Y Wound/Abrasion Swelling Drainage Facial Pain Physical Exam Vitals & Measurements T: 36.9 ?C (Temporal Artery) HT: 182 cm WT: 92 kg WT: 92 kg (Dosing) BMI: 27.77 Vitals reviewed and any abnormalities discussed with the patient General: No acute distress, alert and oriented ?3 Voice: Normal tone, volume, and projection noted. Head: Normocephalic atraumatic, no abnormal masses or lesions noted Eyes: Extraocular motion is intact bilaterally, pupils are equally reactive and round to light Ears: Left ear with postauricular mastoid flap with excellent viability and healing well. Sutures clean dry and intact. Upon removal of sutures there appears to be some difficulty healing at the scaphoid fossa region of the attachment of the most distal portion of the flap this was debrided and Steri-Strips placed here for additional healing. Nose: External nasal dorsum is straight. Anterior rhinoscopy reveals normal intranasal anatomy, a straight septum, and normal inferior turbinates bilaterally. Mouth: Dentition is good. Oral tongue has normal mobility and appears normal with no abnormal masses or lesions. Oropharynx: Tonsils are 1-2+. The posterior oropharynx shows no abnormal masses or lesions, Mirror: Not performed due to gag reflex. Neck: Neck is supple bilaterally. No thyromegaly. Laryngeal crepitus is normal. CV: Heart rate normal. Equal bilateral peripheral perfusion. Pulmonary: No audible wheezing, stridor, or stertor noted. Equal chest excursion noted bilaterally. Musculoskeletal: There is no evidence of temporomandibular joint disorders or inflammation of the muscles of mastication bilaterally. Heme/Lymph: There is no cervical lymphadenopathy noted. No visible bruising noted in the head and neck. Neuro: Cranial nerves II - XII are grossly normal with no focal deficits noted. January 19, 2021 audiogram and tympanogram showing moderate to severe sensorineural hearing loss bilaterally. Possible air-bone gap at 4000 Hz. Type B tympanograms bilaterally. With normal volumes. Word recognition scores 84% on the right and 80% on the left. January 19, 2021 procedure: Skin Debridement: The region was carefully cleansed/debrided using a combination of 4 x 4's and Q-tips soaked with half hydrogen peroxide and half saline. Care was taken to debride any dried blood, scabbing, or debri at the incision site. When indicated a single-tooth Adson and suture scissors were used to further cleanse/debride the wound. Topical Bactroban ointment was carefully placed on the wound. Sutures were removed as well. The wound edge of the distal flap had some mild few millimeter necrosis but I want this attached better to the scaphoid region. This was debrided and Steri-Strips used to reinforce this. January 12, 2021 procedure: Skin Debridement: The region was carefully cleansed/debrided using a combination of 4 x 4's and Q-tips soaked with half hydrogen peroxide and half saline. Care was taken to debride any dried blood, scabbing, or debride at the incision site. When indicated a single-tooth Adson and suture scissors were used to further cleanse/debride the wound. Topical Bactroban ointment was carefully placed on the wound. January 11, 2021 excision and preparation of surgical site and reconstruction of left auricular defect with postauricular mastoid flap January 05, 2021 modified Mohs of left ear 01/12/21 Assessment/Plan 1. Postop check Postop day 1 status post left ear reconstruction with postauricular mastoid flap. This is excellent viability. There is no longer any significant bleeding from this wound. I do see some oozing which I expect. The wound was redressed today and I have him follow-up in 2 days to remove the pressure dressing. 2. Basal (more content not included)... Normal [facility] BASIC METABOLIC PANEL W/O CA on 01-15-2021 Chloride [Moles/Vol] 98 mmol/L Normal 98-110 [facility] Comment on above: Order Comment: FASTI NG:YESFASTING: YES Performed By: #### 1 5959, 349, 851 #### [facility] [address], [address] [place] [id number] Medical Services Coordinator: Juan Meraz MD CO2 [Moles/Vol] 26 mmol/L Normal 20-32 [facility] Comment on above: Order Comment: FASTI NG:YESFASTING: YES Performed By: #### 1 0165, 495, 905 #### [facility] [place] [address] Medical Services Coordinator: Juan Meraz MD Creatinine [Mass/Vol] 1.71 mg/dL High 0.70-1.[address] [facility] [address] [facility] Comment on above: Order Comment: FASTI NG:YESFASTING: YES Result Comment: For patients >49 years of age, the reference limit for Creatinine is approximately 13% higher for people identified as -Mauritian. Performed By: #### 1 0165, 858, 905 #### [facility] [place] [address] Medical Services Coordinator: Juan Meraz MD eGFR NON-AFR. TONGAN 42 mL/min/1.73m2 Low > OR = 60 [facility] Comment on above: Order Comment: FASTI NG:YESFASTING: YES Performed By: #### 1 016, 497, 905 #### [facility] [place] [address] Medical Services Coordinator: Juan Meraz MD GFR/1.73 sq M.predicted among blacks MDRD (S/P/Bld) [Vol rate/Area] 48 mL/min/{1.73_m2} Low > OR = 60 [facility] Comment on above: Order Comment: FASTI NG:YESFASTING: YES Performed By: #### 1 0165, 496, 905 #### [facility] [address], [address] [place] [address] Medical Services Coordinator: Juan Meraz MD Glucose [Mass/Vol] 186 mg/dL High 65-99 [facility] Comment on above: Order Comment: FASTI NG:YESFASTING: YES Result Comment: Fasting reference interval For someone without known diabetes, a glucose value >125 mg/dL indicates that they may have diabetes and this should be confirmed with a follow-up test. Performed By: #### 1 0165, 496, 905 #### [facility] [place] [address] Medical Services Coordinator: Juan Meraz MD Potassium [Moles/Vol] 4.3 mmol/L Normal 3.5-5.[address] [facility] [address] [facility] Comment on above: Order Comment: FASTI NG:YESFASTING: YES Performed By: #### 1 0165, 496, 905 #### [facility] [place] [address] Medical Services Coordinator: Juan Meraz MD Sodium [Moles/Vol] 137 mmol/L Normal 135-146 [facility] Comment on above: Order Comment: FASTI NG:YESFASTING: YES Performed By: #### 1 0165, 499, 905 #### [facility] [place] [address] Medical Services Coordinator: Juan Meraz MD Urea nitrogen [Mass/Vol] 34 mg/dL High 7-25 [facility] Comment on above: Order Comment: FASTI NG:YESFASTING: YES Performed By: #### 1 0165, 492, 905 #### [facility] [place] [address] Medical Services Coordinator: Juan Meraz MD Urea nitrogen/Creatinine [Mass ratio] 20 mg/mg Normal 6-22 [facility] Comment on above: Order Comment: FASTI NG:YESFASTING: YES Performed By: #### 1 0165, 494, 905 #### [facility] [place] [address] Medical Services Coordinator: Juan Meraz MD CBC (INCLUDES DIFF/PLT)on Basophils (Bld) [#/Vol] 0.026 10*3/uL Normal 0-200 [facility] Comment on above: Performed By: #### 1 0165, 496, 905 #### [facility] [place] [address] Medical Services Coordinator: Juan Meraz MD Basophils/100 WBC (Bld) 0.3 % Normal Q [facility] Comment on above: Performed By: #### 1 0165, 496, 905 #### [facility] of [place] [address] Medical Services Coordinator: Juan Meraz MD Eosinophils (Bld) [#/Vol] 0.202 10*3/uL Normal 15-500 [facility] Comment on above: Performed By: #### 1 0165, 496, 905 #### [facility] of [place] [address] Medical Services Coordinator: Juan Meraz MD Eosinophils/100 WBC (Bld) 2.3 % Normal [facility] Comment on above: Performed By: #### 1 0165, 496, 905 #### [facility] [place] [address] Medical Services Coordinator: Juan Meraz MD Erythrocyte distribution width (RBC) [Ratio] 15.7 % High 11.0-15.0 [facility] Comment on above: Performed By: #### 1 016, 496, 905 #### [facility] [place] [address] Medical Services Coordinator: Juan Meraz MD Hematocrit (Bld) [Volume fraction] 34.9 % Low 38.5-50.0 [facility] Comment on above: Performed By: #### 1 016, 490, 905 #### [facility] [place] [address] Medical Services Coordinator: Juan Meraz MD Hemoglobin (Bld) [Mass/Vol] 10.9 g/dL Low 13.2-17.1 [facility] Comment on above: Performed By: #### 1 0165, 496, 905 #### [facility] [place] [address] Medical Services Coordinator: Juan Meraz MD Lymphocytes (Bld) [#/Vol] 0.748 10*3/uL Low 850-3900 [facility] Comment on above: Performed By: #### 1 016, 496, 905 #### [facility] [place] [address] Medical Services Coordinator: Juan Meraz MD Lymphocytes/100 WBC (Bld) 8.5 % Normal [facility] Comment on above: Performed By: #### 1 5, 496, 905 #### [facility] [place] [address] Medical Services Coordinator: Juan Meraz MD MCH (RBC) [Entitic mass] 25.1 pg Low 27.0-33.0 [facility] Comment on above: Performed By: #### 1 Mikie5, 496, 905 #### [facility] [place] [address] Medical Services Coordinator: Juan Meraz MD MCHC (RBC) [Mass/Vol] 31.2 g/dL Low 32.0-36.[address] [facility] Comment on above: Performed By: #### 1 016, 496, 905 #### [facility] [place] [address] Medical Services Coordinator: Juan Meraz MD MCV (RBC) [Entitic vol] 80.4 fL Normal 80.0-100.0 Q [facility] Comment on above: Performed By: #### 1 164, 496, 905 #### [facility] [place] [address] Medical Services Coordinator: Juan Meraz MD Monocytes (Bld) [#/Vol] 0.889 10*3/uL Normal 200-950 [facility] Comment on above: Performed By: #### 1 016, 496, 905 #### [facility] [place] [address] Medical Services Coordinator: Juan Meraz MD Monocytes/100 WBC (Bld) 10.1 % Normal Q [facility] Comment on above: Performed By: #### 1 016, 496, 905 #### [facility] of [address], [address] [place] [address] Medical Services Coordinator: Juan Meraz MD Neutrophils (Bld) [#/Vol] 6.934 10*3/uL Normal 9166-4697 [facility] Comment on above: Performed By: #### 1 0165, 496, 905 #### [facility] [place] [address] Medical Services Coordinator: Juan Meraz MD Neutrophils/100 WBC (Bld) 78.8 % Normal [facility] Comment on above: Performed By: #### 1 0165, 496, 905 #### [facility] [place] [address] Medical Services Coordinator: Juan Meraz MD Platelet mean volume (Bld) [Entitic vol] 9.9 fL Normal 7.5-12.5 [facility] Comment on above: Performed By: #### 1 0165, 496, 905 #### [facility] [place] [address] Medical Services Coordinator: Juan Meraz MD Platelets (Bld) [#/Vol] 353 10*3/uL Normal 140-400 [facility] Comment on above: Performed By: #### 1 0165, 496, 905 #### [facility] [place] [address] Medical Services Coordinator: Juan Meraz MD RBC (Bld) [#/Vol] 4.34 10*6/uL Normal 4.20-5.80 [facility] Comment on above: Performed By: #### 1 0165, 496, 905 #### [facility] [place] [address] Medical Services Coordinator: Juan Meraz MD WBC (Bld) [#/Vol] 8.8 10*3/uL Normal 3.8-10.8 [facility] Comment on above: Performed By: #### 1 0165, 496, 905 #### [facility] [address] [place] [address] Medical Services Coordinator: Juan Meraz MD Otolaryngology Office/Clinic Noteon 01-14-2021 Otolaryngology Office/Clinic Note Chief Complaint Patient states I am here for a left ear post op History of Present Illness Anai is a pleasant 65-year-old male who presents postop day 3 status post postauricular mastoid flap for reconstruction of the ear status post removal of basal cell carcinoma. Postop day 0 he had bleeding which was cauterized in our clinic and rebandaged. He is having very minimal oozing from the area. He states that his pain is well controlled. Not having any difficulty taking the medications. Review of Systems General Cardiovascular EENMT Ear pain: Yes Gastrointestinal Genitourinary Hematologic/Lymphatic Musculoskeletal Neurological Psychiatric Respiratory Skin Physical Exam Vitals & Measurements HR: 88 (Peripheral) BP: 129/73 Vitals reviewed and any abnormalities discussed with the patient General: No acute distress, alert and oriented ?3 Voice: Normal tone, volume, and projection noted. Head: Normocephalic atraumatic, no abnormal masses or lesions noted Eyes: Extraocular motion is intact bilaterally, pupils are equally reactive and round to light Ears: Left ear with postauricular mastoid flap with excellent viability and healing well. There is no evidence of any loss of the flap. There is no active bleeding. Skin Debridement: The region was carefully cleansed/debrided using a combination of 4 x 4's and Q-tips soaked with half hydrogen peroxide and half saline. Care was taken to debride any dried blood, scabbing, or debri at the incision site. The Xeroform gauze was in place underneath the flap and this was removed today followed by reapplication of Xeroform and mupirocin underneath the flap. No outer dressing applied today.Topical Bactroban ointment was carefully placed on the wound. Patient tolerated this procedure well with no associated tenderness or pain. Additional Vitals BP Position/Location: Sitting, Left arm Assessment/Plan 1. Post-operative state Patient is healing very well at this time. We did not place a bandage over the ear today. Keep ear uncovered unless going out and about. Discussed with how to properly debride the area of any crusted blood with half hydrogen peroxide and half water using a Q-tip. They can also continue to apply mupirocin ointment. Follow-up next week with Dr. Gutierrez for suture removal and further evaluation. Still keep the area dry otherwise. They are in agreement with this plan and have no further questions at this time. 2. Basal cell carcinoma of left ear Medical Decision Making Chronic conditions NOT treated during this visit that affected my overall medical decision making: [] Treatment plans discussed but not opted for at this time: [] Prescribed medication that requires intensive monitoring for toxicity: [] I have reviewed the patient?s medication list for medication interactions/contrain dications and/or for upcoming procedures: [yes or no] Time Spent with the Patient I have personally spent [20] minutes on this date, directly related to today's patient visit, including pre and post visit work, for this date of service. Time listed does not include time spent on separately billable services. 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 Hyperlipidemia Hyperuricemia Ischemic congestive cardiomyopathy Neuropathy due to diabetes mellitus Obesity Obstructive sleep apnea syndrome Peripheral vascular disease Retinopathy due to diabetes mellitus Sarcoidosis Secondary hypercalcemia Type 2 diabetes mellitus Procedure/Surgical History amputation 2nd left toe with partial reconstruction amputation of left foot transmetatarsal cardiac cath COLONOSCOPY WITH BIOPSY colonoscopy with polypectomy debridement of bone to right foot EGD with biopsy fasciotomy of right foot Foot reconstruction FUSION OF FOOT BONES LAPAROSCOPIC CHOLECYSTECTOMY orthopedic surgery of right foot Excision (01/11/2021) Medications acetaminophen 500 mg oral tablet Albuterol (Eqv-ProAir HFA) 90 mcg/inh inhalation aerosol albuterol 2.5 mg/3 mL (0.083%) inhalation solution, 2.5 mg= 3 mL, NEB, Once alendronate 70 mg oral tablet allopurinol 100 mg oral tablet aspirin 81 mg oral delayed release tablet, 81 mg= 1 tabs, Oral, Daily atorvastatin 80 mg oral tablet Breo Ellipta 200 mcg-25 mcg/inh inhalation powder bumetanide 2 mg oral tablet carvedilol 12.5 mg oral tablet cholecalciferol 5000 intl units oral tablet, 125 mcg= 1 tabs, Oral, Daily famotidine 20 mg oral tablet fluticasone 50 mcg/inh nasal spray, 1 sprays, Nasal, qAM Hysept 0.25% topical solution influenza virus vaccine, inactivated 5+ years old, 0.5 mL, IM, Once ipratropium-albuterol 0.5 mg-2.5 mg/3 mLinhalation solution Keflex 500 mg oral caps (more content not included)... Normal [facility] Otolaryngology Office/Clinic Noteon 01-12-2021 Otolaryngology Office/Clinic Note History of Present Illness Anai is a pleasant 65-year-old male who presents postop day 1 status post postauricular mastoid flap for reconstruction of the ear status post removal of basal cell carcinoma. Postop day 0 he had bleeding which was cauterized in our clinic and rebandaged. Today there is still some bleeding but much improved from previously. 12/15/20 Referred by pcp Irais to ENT for lesion left ear duration of 1 year. Concerned about BCC. Denies any pain or redness from the area. He is also having right ear pain and congestion today with difficulty hearing duration 6+ months. Previous ENT management by Dr. Freed. Previous pathology by physician in [place] about 1 year ago. PMHx of multiple surgeries in right foot. Review of Systems General Cardiovascular EENMT Ear pain: YesGastrointestinal Genitourinary Hematologic/Lymphatic Musculoskeletal Neurological Psychiatric Respiratory Skin Lesion/change in moles: Yes Physical Exam Vitals & Measurements T: 36.8 ?C (Temporal Artery) HT: 182 cm WT: 92 kg BMI: 27.77 Vitals reviewed and any abnormalities discussed with the patient General: No acute distress, alert and oriented ?3 Voice: Normal tone, volume, and projection noted. Head: Normocephalic atraumatic, no abnormal masses or lesions noted Eyes: Extraocular motion is intact bilaterally, pupils are equally reactive and round to light Ears: Left ear with postauricular mastoid flap with excellent viability and healing well. There is no evidence of any loss of the flap. There is no obvious bleeding. The Xeroform gauze is still underneath the flap and intact with minimal oozing. Pressure dressing was then reapplied. Nose: External nasal dorsum is straight. Anterior rhinoscopy reveals normal intranasal anatomy, a straight septum, and normal inferior turbinates bilaterally. Mouth: Dentition is good. Oral tongue has normal mobility and appears normal with no abnormal masses or lesions. Oropharynx: Tonsils are 1-2+. The posterior oropharynx shows no abnormal masses or lesions, Mirror: Not performed due to gag reflex. Neck: Neck is supple bilaterally. No thyromegaly. Laryngeal crepitus is normal. CV: Heart rate normal. Equal bilateral peripheral perfusion. Pulmonary: No audible wheezing, stridor, or stertor noted. Equal chest excursion noted bilaterally. Musculoskeletal: There is no evidence of temporomandibular joint disorders or inflammation of the muscles of mastication bilaterally. Heme/Lymph: There is no cervical lymphadenopathy noted. No visible bruising noted in the head and neck. Neuro: Cranial nerves II - XII are grossly normal with no focal deficits noted. January 12, 2021 procedure: Skin Debridement: The region was carefully cleansed/debrided using a combination of 4 x 4's and Q-tips soaked with half hydrogen peroxide and half saline. Care was taken to debride any dried blood, scabbing, or debri at the incision site. When indicated a single-tooth Adson and suture scissors were used to further cleanse/debride the wound. Topical Bactroban ointment was carefully placed on the wound. January 11, 2021 excision and preparation of surgical site and reconstruction of left auricular defect with postauricular mastoid flap January 05, 2021 modified Mohs of left ear Additional Vitals No qualifying data available. Assessment/Plan 1. Postop check Postop day 1 status post left ear reconstruction with postauricular mastoid flap. This is excellent viability. There is no longer any significant bleeding from this wound. I do see some oozing which I expect. The wound was redressed today and I have him follow-up in 2 days to remove the pressure dressing. 2. Basal cell carcinoma of left ear Status post Mohs excision of basal cell carcinoma of the superior third of the ear postop day 1 status post reconstruction with postauricular mastoid flap. This was biopsy-proven basal cell carcinoma biopsied elsewhere a while ago. 3. Vasomotor rhinitis In addition the patient has vasomotor rhinitis and again I recommend saline rinses to the nose twice daily and Flonase 2 sprays each nostril daily. I also recommend ipratropium bromide to be taken 30 minutes before a meal to hopefully stop some of the vasomotor rhinitis symptoms that occur with eating. 4. ETD (eustachian tube dysfunction) 5. JAN (serous otitis media) Medical Decision Making Chronic conditions NOT treated during this visit that affected my overall medical decision making: [] Treatment plans discussed but not opted for at this time: [] Prescribed medication that requires intensive monitoring for toxicity: [] I have reviewed the patient?s medication list for medication interactions/contrain dications and/or for upcoming procedures: [yes or no] Time Spent with the Patient I have personally spent [] minutes on this date, directly related to today's patient visit, including pre and post visit work, for this date of service. Time listed does not include time spent on separately bill (more content not included)... Normal [facility] Operative Reporton Operative Report Date: January 11, 2021 Preoperative diagnosis: 1) control of bleeding postsurgical Postoperative diagnosis: Same Procedure(s): Bleeding status post left mastoid flap auricular reconstruction Surgeon: Chirag Gutierrez D.O. Anesthesia: Lidocaine 1% with epi 1 to 100,007 cc IV fluids: Not applicable Estimated blood loss: Minimal Complications: None Operative Indications: Anai is a very pleasant 65-year-old male who presents postop day 0 with bleeding status post left postauricular mastoid flap for auricular reconstruction status post Mohs excision of basal cell carcinoma. The bleeding began a few hours ago and was significant enough that we met him in the clinic for evaluation. We did see a significant amount of bleeding in the bandage. He denies any pain, nausea, vomiting, headache or dizziness. Operative Findings: Exploration of the wound appeared to be coming from wound edges with no major arterial source visualized. Multiple areas were cauterized after removal of all clot. Operative Specifics: After consent was obtained and all questions answered the patient was brought back to the operating suite and placed in the supine position. The flap was staged as a for stage reconstruction and we had access under the flap inferiorly and superiorly. The flap was gently retracted and examined. The wound was anesthetized with lidocaine 1% with epi 1-100,000. The blood clot was suctioned and we evaluated the full area meticulously using a 5 and 10 suction as well as Q-tips. We did see some pinpoint bleeding at the area of the skin edges and along the proximal portion of the flap which was carefully cauterized. The wound was meticulously examined and found to be free of any bleeding after evaluation and pinpoint cautery. We did replace antibiotic ointment in the wound as well as Xeroform gauze in the wound. In addition we reapplied a pressure dressing. We will reevaluate her patient tomorrow or sooner with any severe issues. 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 Anesthesia: General oral endotracheal IV fluids: Please see the anesthesia record Estimated blood loss: Minimal Complications: None Operative Indications: Anai is a pleasant 65-year-old male who presented with basal cell carcinoma of the left ear. After modified Mohs excision of this in the office margins were clear after 3 rounds of Mohs. He was left with a full-thickness defect involving the superior third of the ear portions of the cartilage remaining. We elected for a posterior mastoid flap which would be the first stage of his reconstruction. After discussion of the risks, benefits, and alternatives to surgery, the patient elected to undergo the above listed procedures. Operative Findings: Successful harvest of the postauricular mastoid flap with good blood supply from the postauricular artery maintained. Operative Specifics: After consent was obtained and all questions answered the patient was brought back to the operating suite and placed in the supine position. General endotracheal anesthesia was introduced per the Department of anesthesia. The area was marked and then anesthetized with lidocaine 1% with epi 1-200,000 off the field after cleansing first with an alcohol swab. The planned incision was marked involving the posterior aspect of the ear as well as mastoid region. The patient was prepped and draped in usual sterile fashion. Then excision and preparation of the surgical site began by freshening the wound edges anteriorly and along the helix and posteriorly using a 15 blade with removal of about 1 mm of tissue to freshen the wound edges and to receive the flap. Then using a 15 blade and tenotomy scissors as well as a Bovie the postauricular mastoid flap was developed. Care was taken to elevate the flap initially just above the perichondrium over the posterior aspect of the ear. We then transition to the subcutaneous plane in the mastoid region. The postauricular neurovascular bundles were preserved in this fashion. The flap was elevated so as to have minimal tension. The flap was also shaped in order to sew into the area of the defect essentially sewing the ear to this flap which would pull the ear back towards the head temporarily but this is the first stage. Initial rosado sutures were placed with 5-0 nylon and then interrupted sutures were performed with 5-0 fast. Care was taken to maintain the natural curvature of the helix and care was taken to have this fall in the scaphoid fossa as naturally as possible as we sewed this into place. The superior and inferior aspects of the flap were loosely tied to the remaining skin so as to minimize tension. This would be later divided in the second stage after 3 weeks. The patient was returned to the care of the anesthesiologist awoken and extubated. The patient tolerated this procedure well. Electronically signed by Chirag Gutierrez DO 01/11/21 09:28 EDT Normal [facility] POC Glucose Randomon 021 Glucose [Mass/Vol] 211 mg/dL High 70-99 [facility] Comment on above: Performed By: #### C [id number] ####[facility] [place] [address] 01-10-2021 Employed in healthcare? Unknown Normal [facility] Comment on above: Performed By: #### C [id number] ####[facility] [place] [address] Group care resident? Unknown Normal [facility] Comment on above: Performed By: #### C [id number] ####[place] [address] [place] [address] In ICU? No Normal [facility] Comment on above: Performed By: #### C [id number] ####[address] [address] status? Not Applicable Normal [facility] Comment on above: Performed By: #### C [id number] ####[address] [address] SARS-CoV-2 (COVID-19) RNA MEREDITH+probe Ql (Unsp spec) Normal Negative [facility] Comment on above: Result Comment: * Ne gative (Non-Reactive) * Negative results from patients with symptom onset outside of one to six days should be treated as presumptive. A false-negative test result may occur if the level of viral antigen in a sample is below the detection limit of the test or if the sample was collected or transported improperly; therefore, a negative test result does not eliminate the possibility of SARS-CoV-2 infection. Negative results should not be used as the sole basis for treatment or patient management decisions, including infection control decisions. Negative results should be considered in the context of a patient?s recent exposures, history and the presence of clinical signs and symptoms consistent with COVID-19. Negative ADDITIONAL INFORMATION: Testing performed on the [employer] using the SARS-CoV-2 Antigen test. Results are for the identification of SARS-CoV-2 nucleocapsid antigen. The VITROS SARS-CoV-2 Antigen test can detect both viable and non-viable SARS-CoV-2 material. The VITROS SARS-CoV-2 Antigen test performance depends on antigen load and may not correlate with other diagnostic methods performed on the same specimen. The performance of this test has not been evaluated for use in patients without signs and symptoms of respiratory infection. Test results should be considered in the context of all available clinical and diagnostic information, including patient history and other test results. In the [place], the VITROS SARS-CoV-2 Antigen test is only for use under the Food and Drug Administration?s Emergency Use Authorization. HCP Fact Sheet: https://www.fda.gov/media/849689/download Patient Fact Sheet: https://www.fda.gov/media/225941/download Performed By: #### C [id number] ####[place] [address] SARS-CoV-2 (COVID-19) RNA MEREDITH+probe Ql (Unsp spec) Unknown Normal [facility] Comment on above: Performed By: #### C [id number] ####[place] [address] Symptomatic as defined by CDC? Unknown Normal [facility] Comment on above: Performed By: #### C [id number] ####[address] [address] BASIC METABOLIC PANELon 10-0 Calcium [Mass/Vol] 9.6 mg/dL Normal 8.6-10.3 [facility] Comment on above: Performed By: #### 1 0165, 496, 905 #### [facility] [place] [address] Medical Services Coordinator: Juan Meraz MD Chloride [Moles/Vol] 100 mmol/L Normal 98-110 [facility] Comment on above: Performed By: #### 1 0165, 496, 905 #### [facility] [place] [address] Medical Services Coordinator: Juan Meraz MD CO2 [Moles/Vol] 30 mmol/L Normal 20-32 [facility] Comment on above: Performed By: #### 1 0165, 496, 905 #### [facility] [place] [address] Medical Services Coordinator: Juan Meraz MD Creatinine [Mass/Vol] 1.67 mg/dL High 0.70-1.[address] [facility] Comment on above: Result Comment: For patients >49 years of age, the reference limit for Creatinine is approximately 13% higher for people identified as -Mauritian. Performed By: #### 1 0165, 496, 905 #### [facility] [place] [address] Medical Services Coordinator: Juan Meraz MD eGFR NON-AFR. TONGAN 43 mL/min/1.73m2 Low > OR = 60 [facility] Comment on above: Performed By: #### 1 016, 496, 905 #### [facility] [place] [address] Medical Services Coordinator: Juan Meraz MD GFR/1.73 sq M.predicted among blacks MDRD (S/P/Bld) [Vol rate/Area] 50 mL/min/{1.73_m2} Low > OR = 60 [facility] Comment on above: Performed By: #### 1 016, 495, 905 #### [facility] [place] [address] Medical Services Coordinator: Juan Meraz MD Glucose [Mass/Vol] 124 mg/dL High 65-99 [facility] Comment on above: Result Comment: Fasting reference interval For someone without known diabetes, a glucose value between 100 and 125 mg/dL is consistent with prediabetes and should be confirmed with a follow-up test. Performed By: #### 1 164, 492, 905 #### [facility] [place] [address] Medical Services Coordinator: Juan Meraz MD Potassium [Moles/Vol] 4.7 mmol/L Normal 3.5-5.[address] [facility] Comment on above: Performed By: #### 1 0165, 496, 905 #### [facility] [place] [address] Medical Services Coordinator: Juan Meraz MD Sodium [Moles/Vol] 138 mmol/L Normal 135-146 [facility] Comment on above: Performed By: #### 1 0165, 496, 905 #### [facility] [address] [address] Medical Services Coordinator: Juan Meraz MD Urea nitrogen [Mass/Vol] 40 mg/dL High 7-25 [facility] Comment on above: Performed By: #### 1 0165, 496, 905 #### [facility] [place] [address], [address] [place] [address] Medical Services Coordinator: Juan Meraz MD Urea nitrogen/Creatinine [Mass ratio] 24 mg/mg High 6-22 [facility] Comment on above: Performed By: #### 1 0165, 496, 905 #### [facility] [address], [address] [place] [address] Medical Services Coordinator: Juan Meraz MD HEMOGLOBIN A1con 12-31-2020 HEMOGLOBIN A1c 7.2 % of total Hgb High <5.7 [facility] Comment on above: Result Comment: For someone without known diabetes, a hemoglobin A1c value of 6.5% or greater indicates that they may have diabetes and this should be confirmed with a follow-up test. For someone with known diabetes, a value <7% indicates that their diabetes is well controlled and a value greater than or equal to 7% indicates suboptimal control. A1c targets should be individualized based on duration of diabetes, age, comorbid conditions, and other considerations. Currently, no consensus exists regarding use of hemoglobin A1c for diagnosis of diabetes for children. Performed By: #### 1 0165, 496, 905 #### [facility] [address], [address] [place] [address] Medical Services Coordinator: Juan Meraz MD Provider Letteron 12-31-2020 Provider Letter [facility] Ear[facility] & Throat; Facial Plastic Surgery [address] [place] [address] P: [phone] F: [phone] [facility] Anai [id number] Date of Visit: 01/05/2021 ATTENTION MEDICAL RECORDS: We are requesting pathology report for biopsy of left ear done within the last 2 years for patient Anai Rdzlucy 59. Thank you, Muna [facility] Provider Letter [facility] Ear, Nose & Throat; Facial Plastic Surgery [address] [place], [place] [id number] P: [phone] F: [phone] Chirag Gutierrez DO, [facility] Re: Anai Rex1955 Date of Visit: 01/05/2021 ATTENTION MEDICAL RECORDS: We are requesting pathology report for biopsy of left ear done within the last 2 years for patient Anai Goodman. [facility] you, [facility] Provider Letter Pl[facility] Surgery [facility] Aest[facility] Nose & Throat; Facial Plastic Surgery [address] [place] [id number] P: [phone] F: [phone] Chirag Gutierrez DO, [facility] Deon Brito [address] [place] [address] [place] [address] Re: Anai Goodman1955 Date of Visit: 01/05/2021 Patient is a mutual patient, referred to us by your office for lesion of his left ear. We are in need of his previous pathology report for this, he returns to our office for biopsy of this lesion on 01/05/21. We would appreciate if you could please fax over this information prior to 01/05/21. Thank you, [facility] URIC ACIDon 12-31-2020 Urate [Mass/Vol] 10.3 mg/dL High 4.0-8.0 [facility] Comment on above: Order Comment: FASTI NG:YES FASTING: YES Result Comment: Ther apeutic target for gout patients: <6.0 mg/dL Performed By: #### 1 [id number] [phone] [phone] #### [facility] [address], [address] [place] [id number] Medical Services Coordinator: Juan Meraz MD Provider Letteron 12-17-2020 Provider Letter Deon Brito [address] [place] [address] Re: Anai Goodman Date of Visit: 12/15/2020 Dear Deon Braxton, I am referring Anai to your office for care. Attached your will find my notes and impressions from our visit. Deon Braxton DO Re:Anai Goodman 1955 Date of Visit: 12/15/2020 Dear Deon Braxton DO: I had the pleasure of evaluating patient, Anai Goodman, in the [facility] clinic on 12/15/2020. Attached you will find my office note with detailed assessments and recommendations. Thank you for allowing me to participate in the care of your kind patient. The patient was provided with discharge instructions, both written and verbal, and follow up has been arranged as stated in note. Please do not hesitate to contact our office with any questions. Sincerely, Chirag Gutierrez, DO [facility] [place] [address] Let me know if you have any questions or concerns. Sincerely, Tyesha Dunne Providers: The following document(s) were included in the letter: December 15, 2020 13:30:00 EDT - (12/15/2020) Office Visit Note Normal [facility] Otolaryngology Office/Clinic Noteon 12-15-2020 Otolaryngology Office/Clinic Note Chief Complaint lesion of left ear History of Present Illness Referred by pcp Irais to ENT for lesion left ear duration of 1 year. Concerned about BCC. Denies any pain or redness from the area. He is also having right ear pain and congestion today with difficulty hearing duration 6+ months. Previous ENT management by Dr. Freed. Previous pathology by physician in [place] about 1 year ago. PMHx of multiple surgeries in right foot. Review of Systems The patient's review of systems, past medical history/medications/a llergies were reviewed and discussed with the patient. GENERAL: No weakness, malaise HEENT: Positive per HPI CARDIOVASCULAR: No chest pain, palpitations RESPIRATORY: No shortness of breath, cough, wheezing, and pleuritic chest pain ABDOMEN/GI: No, nausea, vomiting MUSCULOSKELETAL: No joint pain or swelling SKIN: No rash, discoloration NEURO: No, numbness, tingling, and seizure Physical Exam Vitals & Measurements HT: 183 cm WT: 99.79 kg BMI: 29.8 Vitals reviewed and any abnormalities discussed with the patient General: No acute distress, alert and oriented ?3 Voice: Normal tone, volume, and projection noted. Head: Normocephalic atraumatic, no abnormal masses or lesions noted Eyes: Extraocular motion is intact bilaterally, pupils are equally reactive and round to light Ears: External ears and mastoids appear normal. Nose: External nasal dorsum is straight. Anterior rhinoscopy reveals normal intranasal anatomy, a straight septum, and normal inferior turbinates bilaterally. Mouth: Dentition is good. Oral tongue has normal mobility and appears normal with no abnormal masses or lesions. Oropharynx: Tonsils are 1-2+. The posterior oropharynx shows no abnormal masses or lesions, Mirror: Not performed due to gag reflex. Neck: Neck is supple bilaterally. No thyromegaly. Laryngeal crepitus is normal. CV: Heart rate normal. Equal bilateral peripheral perfusion. Pulmonary: No audible wheezing, stridor, or stertor noted. Equal chest excursion noted bilaterally. Musculoskeletal: There is no evidence of temporomandibular joint disorders or inflammation of the muscles of mastication bilaterally. Heme/Lymph: There is no cervical lymphadenopathy noted. No visible bruising noted in the head and neck. Neuro: Cranial nerves II - XII are grossly normal with no focal deficits noted. Additional Vitals No qualifying data available. Assessment/Plan 1. Basal cell carcinoma, Left ear Discussed Mohs procedure for further evaluation of left ear lesion. No pathology report today. 2. Vasomotor rhinitis 3. ETD (eustachian tube dysfunction) 4. Serous otitis media Discussed allergy protocol with ocean nasal spray. order ipratropium bromide TID. Order audiology. Orders: ipratropium nasal, 2 sprays, Nasal, TID, # 30 mL, 1 Refill(s), 12/18/20 14:00:00 EDT, Pharmacy: [id number] Medical Decision Making Chronic conditions NOT treated during this visit that affected my overall medical decision making: [] Treatment plans discussed but not opted for at this time: [] Prescribed medication that requires intensive monitoring for toxicity: [] I have reviewed the patient?s medication list for medication interactions/contrain dications and/or for upcoming procedures: [yes or no] Time Spent with the Patient I have personally spent 45 minutes on this date, directly related to today's patient visit, including pre and post visit work, for this date of service. Time listed does not include time spent on separately billable services. 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 Hyperlipidemia Hyperuricemia Ischemic congestive cardiomyopathy Neuropathy due to diabetes mellitus Obesity Obstructive sleep apnea syndrome Peripheral vascular disease Retinopathy due to diabetes mellitus Sarcoidosis Secondary hypercalcemia Type 2 diabetes mellitus Procedure/Surgical History amputation 2nd left toe with partial reconstruction amputation of left foot transmetatarsal cardiac cath COLONOSCOPY WITH BIOPSY colonoscopy with polypectomy debridement of bone to right foot EGD with biopsy fasciotomy of right foot Foot reconstruction FUSION OF FOOT BONES LAPAROSCOPIC CHOLECYSTECTOMY orthopedic surgery of right foot Medications acetaminophen 500 mg oral tablet Albuterol (Eqv-ProAir HFA) 90 mcg/inh inhalation aerosol alendronate 70 mg oral tablet allopurinol 100 mg oral tablet aspirin 81 mg oral delayed release tablet, 81 mg= 1 tabs, Oral, Daily atorvastatin 80 mg oral tablet Breo Ellipta 200 mcg-25 mcg/inh inhalation powder bumetanide 2 mg oral tablet carvedilol 12.5 mg oral tablet carvedilol 6.25 mg oral tablet cholecalciferol 5000 intl (more content not included)... Normal [facility] Otolaryngology Office/Clinic Note Chief Complaint BCC of auricle of ear History of Present Illness Referred by pcp Irais to ENT for lesion left ear duration of 1 year. Concerned about BCC. Denies any pain or redness from the area. He is also having right ear pain and congestion today with difficulty hearing duration 6+ months. Previous ENT management by Dr. Freed. Previous pathology by physician in [place] about 1 year ago. PMHx of multiple surgeries in right foot. Review of Systems The patient's review of systems, past medical history/medications/a llergies were reviewed and discussed with the patient. GENERAL: No weakness, malaise HEENT: Positive per HPI CARDIOVASCULAR: No chest pain, palpitations RESPIRATORY: No shortness of breath, cough, wheezing, and pleuritic chest pain ABDOMEN/GI: No, nausea, vomiting MUSCULOSKELETAL: No joint pain or swelling SKIN: No rash, discoloration NEURO: No, numbness, tingling, and seizure Physical Exam Vitals & Measurements HT: 183 cm WT: 99.79 kg BMI: 29.8 Vitals reviewed and any abnormalities discussed with the patient General: No acute distress, alert and oriented ?3 Voice: Normal tone, volume, and projection noted. Head: Normocephalic atraumatic, no abnormal masses or lesions noted Eyes: Extraocular motion is intact bilaterally, pupils are equally reactive and round to light Ears: External ears and mastoids appear normal. microscopic exam serous otitis media was known on the right. No significant amount of cerumen. No acute or chronic infections. I recommended an audiogram and tympanogram upon a follow-up evaluation. In the interim we will treat with Flonase 2 sprays each nostril daily. The rest of the physical exam was negative with the exception of findings on flexible laryngoscopy and of course the ulcerative lesion on the left ear. This ulcerative lesion in the left ear measures 1.3 cm in size. Nose: External nasal dorsum is straight. Anterior rhinoscopy reveals normal intranasal anatomy, a straight septum, and normal inferior turbinates bilaterally. Mouth: Dentition is good. Oral tongue has normal mobility and appears normal with no abnormal masses or lesions. Oropharynx: Tonsils are 1-2+. The posterior oropharynx shows no abnormal masses or lesions, Mirror: Not performed due to gag reflex. Neck: Neck is supple bilaterally. No thyromegaly. Laryngeal crepitus is normal. CV: Heart rate normal. Equal bilateral peripheral perfusion. Pulmonary: No audible wheezing, stridor, or stertor noted. Equal chest excursion noted bilaterally. Musculoskeletal: There is no evidence of temporomandibular joint disorders or inflammation of the muscles of mastication bilaterally. Heme/Lymph: There is no cervical lymphadenopathy noted. No visible bruising noted in the head and neck. Neuro: Cranial nerves II - XII are grossly normal with no focal deficits noted. Flexible laryngoscopy performed. Procedure: Flexible Nasolaryngoscopy Flexible nasal laryngoscopy was performed due to the patient's history of vasomotor rhinitis and cough after eating and inability to tolerate a mirror exam. Verbal informed consent was obtained from the patient prior to the procedure. A timeout procedure was performed. A 1:1 mixture of 4% lidocaine solution with Afrin nasal solution was instilled into the patient's right nasal cavity. A brief amount of time was allowed to elapse for nasal decongestion and anesthesia. The 4 mm flexible nasolaryngoscope was then carefully inserted into the patient's nasal cavity and used to examine all structures in the nasal cavity, nasopharynx, oropharynx, hypopharynx, and endolarynx, showing no masses or lesions the nasopharynx oropharynx hypopharynx. The true vocal folds move well with both abduction and abduction the airway is patent. I see some drainage along the posterior pharyngeal wall. No evidence of LPR.. The flexible nasal laryngoscope was removed from the patient without any complications. The patient tolerated the procedure well. Additional Vitals No qualifying data available. Assessment/Plan 1. Basal cell carcinoma, Left ear The patient has an ulcerative lesion on the helix of the left ear. This was biopsied 2 years ago and found to be basal cell carcinoma. Unfortunately no pathology report was available for my review. The patient is trying to get this pathology report to us. Our office is called the primary care physician multiple times and we are still awaiting reports. If we cannot obtain this we will need to obtain a second biopsy before we can move forward with any modified Mohs procedure. I discussed modified Mohs procedure with the patient in detail as well as potential reconstruction options. Photographs of his ear taken today. 2. ETD (eustachian tube dysfunction) 3. Vasomotor rhinitis In addition the patient has vasomotor rhinitis and again I recommend saline rinses to the nose twice daily and Flonase 2 sprays each nostril daily. I also recommend ipratropium bromide to be taken 30 minutes before a meal to (more content not included)... Normal [facility] XR ANKLE RT MIN 3 VIEWSon XR ANKLE RT MIN 3 VIEWS Normal [facility] XR FOOT RT MIN 3 VIEWSon XR FOOT RT MIN 3 VIEWS Normal [facility] XR FOOT RT MIN 3 VIEWSon XR FOOT RT MIN 3 VIEWS Normal [facility] XR FOOT RT MIN 3 VIEWSon XR FOOT RT MIN 3 VIEWS Normal [facility] Consultation Noteon 05-11-19 21 Consultation Note [id number]:127 Normal [facility] Vital Signs Date Time Vital Sign Value Performing Clinician Facility 04-12-2023 11:11-0500 Body height 182.9 cm Terry Leo ESCOBEDO Work Phone: [employer] 04-12-2023 11:11-0500 Body mass index (BMI) [Ratio] 28.89 kg/m2 Terry Leo ESCOBEDO Work Phone: [employer] 04-12-2023 11:11-0500 Body weight 96.62 kg Terry Leo ESCOBEDO Work Phone: [employer] 04-12-2023 11:11-0500 Diastolic blood pressure 74 mm[Hg] Terry ESCOBEDO Work Phone: [employer] 04-12-2023 11:11-0500 Heart rate 74 /min Terry Leo ESCOBEDO Work Phone: [employer] 04-12-2023 11:11-0500 SaO2% (BldA) [Mass fraction] 97 % Terry Lock AFNNY Work Phone: [employer] 04-12-2023 11:11-0500 Systolic blood pressure 126 mm[Hg] Terry Leo ESCOBEDO Work Phone: [employer] 12-05-2022 13:00-0400 Body height 177.8 cm Ghanshyam Kaye Other [address] Other 12-05-2022 13:00-0400 Diastolic blood pressure 70 mm[Hg] Ghanshyam Kaye Other [address] Other 12-05-2022 13:00-0400 SaO2% (BldA) [Mass fraction] 97 % Ghanshyam Kaye Other [address] Other 12-05-2022 13:00-0400 Systolic blood pressure 110 mm[Hg] Ghanshyam Kaye Other [address] Other 10-05-2022 10:00-0400 Body height 177.8 cm Dung Kareem Other [address] Other 10-05-2022 10:00-0400 Body mass index (BMI) [Ratio] 31.85 kg/m2 Dung Serna Other [address] Other 10-05-2022 10:00-0400 Body weight 100.7 kg Dung Serna Other [address] Other 10-05-2022 10:00-0400 Diastolic blood pressure 70 mm[Hg] Dung Serna Other [address] Other 10-05-2022 10:00-0400 Systolic blood pressure 118 mm[Hg] Dunghilario Serna Other [address] Other 06-02-2022 11:00-0500 Body height 177.8 cm Reddy Brandt Other [address] Other 06-02-2022 11:00-0500 Body mass index (BMI) [Ratio] 30.13 kg/m2 Reddy Brandt Other [address] Other 06-02-2022 11:00-0500 Body weight 95.26 kg Reddy Brandt Other [address] Other 03-15-2022 13:45-0500 Body height 177.8 cm Reddy Brandt Other [address] Other 03-15-2022 13:45-0500 Body mass index (BMI) [Ratio] 30.85 kg/m2 Reddy Brandt Other [address] Other 03-15-2022 13:45-0500 Body weight 97.52 kg Reddy Brandt Other [address] Other 02-07-2022 14:00-0500 Body height 177.8 cm Ghanshyam Kaye Other [address] Other 02-07-2022 14:00-0500 Body mass index (BMI) [Ratio] 30.85 kg/m2 Ghanshyam Kaye Other [address] Other 02-07-2022 14:00-0500 Body weight 97.52 kg Ghanshyam Kaye Other [address] Other 02-07-2022 14:00-0500 Diastolic blood pressure 72 mm[Hg] Ghanshyam Kaye Other [address] Other 02-07-2022 14:00-0500 SaO2% (BldA) [Mass fraction] 98 % Ghanshyam Shermaney Other [address] Other 02-07-2022 14:00-0500 Systolic blood pressure 118 mm[Hg] Ghanshyam Kaye Other [address] Other 11-29-2021 14:35-0400 Diastolic blood pressure 78 mm[Hg] DO Deon Cordovahas Work Phone: [facility] 11-29-2021 14:35-0400 Heart rate 75 /min DO Deon Yuhas Work Phone: [facility] 11-29-2021 14:35-0400 Respiratory rate 16 /min DO Deon Tashahas Work Phone: [facility] 11-29-2021 14:35-0400 SaO2% (BldA) [Mass fraction] 95 % DO Deon Ramoss Work Phone: [facility] 11-29-2021 14:35-0400 Systolic blood pressure 123 mm[Hg] DO Deon Cordovahas Work Phone: [facility] 11-29-2021 13:39-0400 Inhaled oxygen flow rate 8 L/min DO Deon Cordovahas Work Phone: [facility] 11-29-2021 13:24-0400 Body temperature 98.5 [degF] DO Deon Ramoss Work Phone: [facility] 11-29-2021 12:10-0400 Body height 182.88 cm DO Deon Ramoss Work Phone: [facility] 11-29-2021 12:10-0400 Body mass index (BMI) [Ratio] 30.5 kg/m2 DO Deon Ramoss Work Phone: [facility] 11-29-2021 12:10-0400 Body weight 102.05 kg DO Deon Ramoss Work Phone: [facility] 11-03-2021 10:41-0400 Diastolic blood pressure 66 mm[Hg] DO Deon Cordovahas Work Phone: [facility] 11-03-2021 10:41-0400 Heart rate 78 /min DO Deon Cordovahas Work Phone: [facility] 11-03-2021 10:41-0400 Respiratory rate 16 /min DO Deon Cordovahas Work Phone: [facility] 11-03-2021 10:41-0400 SaO2% (BldA) [Mass fraction] 97 % DO Deon Cordovahas Work Phone: [facility] 11-03-2021 10:41-0400 Systolic blood pressure 121 mm[Hg] DO Deon Yuhas Work Phone: [facility] 11-03-2021 09:41-0400 Body temperature 98 [degF] DO Deon Cordovahas Work Phone: [facility] 11-03-2021 09:11-0400 Inhaled oxygen flow rate 8 L/min DO Deon Cordovahas Work Phone: [facility] 11-03-2021 07:37-0400 Body height 182.88 cm DO Deon Cordovahas Work Phone: [facility] 11-03-2021 07:37-0400 Body mass index (BMI) [Ratio] 30.5 kg/m2 DO Deon Cordovahas Work Phone: [facility] 11-03-2021 07:37-0400 Body weight 102.05 kg DO Deon Cordovahas Work Phone: [facility] 11-01-2021 18:03-0400 Diastolic blood pressure 69 mm[Hg] DO Deon Cordovahas Work Phone: [facility] 11-01-2021 18:03-0400 Heart rate 71 /min DO Deon Cordovahas Work Phone: [facility] 11-01-2021 18:03-0400 Respiratory rate 16 /min DO Deon Ramoss Work Phone: [facility] 11-01-2021 18:03-0400 SaO2% (BldA) [Mass fraction] 99 % DO Deon Cordovahas Work Phone: [facility] 11-01-2021 18:03-0400 Systolic blood pressure 124 mm[Hg] DO Deon Tashahas Work Phone: [facility] 11-01-2021 16:21-0400 Body height 182.88 cm DO Deon Cordovahas Work Phone: [facility] 11-01-2021 16:21-0400 Body temperature 98 [degF] DO Deon Tashahas Work Phone: [facility] 11-01-2021 16:21-0400 Body weight 102.05 kg DO Deon Tashahas Work Phone: [facility] 10-31-2021 10:30-0400 Body height 177.8 cm Reddy Brandt Other [facility] Other 10-27-2021 05:00-0400 Body temperature 98.6 [degF] DO Deon Ramoss Work Phone: [facility] 10-27-2021 05:00-0400 Diastolic blood pressure 72 mm[Hg] DO Deon Cordovahas Work Phone: [facility] 10-27-2021 05:00-0400 Heart rate 70 /min DO Deon Cordovahas Work Phone: [facility] 10-27-2021 05:00-0400 Respiratory rate 16 /min DO Deon Ramoss Work Phone: [facility] 10-27-2021 05:00-0400 SaO2% (BldA) [Mass fraction] 98 % DO Deon Cordovahas Work Phone: [facility] 10-27-2021 05:00-0400 Systolic blood pressure 132 mm[Hg] DO Deon Cordovahas Work Phone: [facility] 10-24-2021 12:00-0400 Body height 182.88 cm DO Deon Cordovahas Work Phone: [facility] 10-23-2021 05:26-0400 Body weight 70.9 kg DO Deon Cordovahas Work Phone: [facility] 10-22-2021 04:14-0400 Inhaled oxygen concentration 21 % DO Deon Tashahas Work Phone: [facility] 10-21-2021 12:00-0400 Body temperature 98.1 [degF] DO Deon Tashahas Work Phone: [facility] 10-21-2021 12:00-0400 Diastolic blood pressure 73 mm[Hg] DO Deon Ramoss Work Phone: [facility] 10-21-2021 12:00-0400 Heart rate 76 /min DO Deon Ramoss Work Phone: [facility] 10-21-2021 12:00-0400 Respiratory rate 18 /min DO Deon Braxton Work Phone: [facility] 10-21-2021 12:00-0400 SaO2% (BldA) [Mass fraction] 95 % DO Deon Ramoss Work Phone: [facility] 10-21-2021 12:00-0400 Systolic blood pressure 128 mm[Hg] DO Deon Braxton Work Phone: [facility] 10-21-2021 06:00-0400 Body weight 99.9 kg DO Deon Braxton Work Phone: [facility] 10-21-2021 02:05-0400 Inhaled oxygen concentration 21 % DO Deon Braxton Work Phone: [facility] 10-19-2021 11:00-0400 Body height 182.88 cm DO Deon Braxton Work Phone: [facility] 10-18-2021 15:37-0400 Inhaled oxygen flow rate 6 L/min DO Deon Braxton Work Phone: [facility] 10-18-2021 13:19-0400 Body mass index (BMI) [Ratio] 29.8 kg/m2 DO Deon Ramoss Work Phone: [facility] 10-12-2021 10:00-0400 Body height 177.8 cm Reddy Brandt Other [address] Other 10-12-2021 10:00-0400 Body mass index (BMI) [Ratio] 32.28 kg/m2 Reddy Brandt Other [address] Other 10-12-2021 10:00-0400 Body weight 102.06 kg Reddy Brandt Other [address] Other 10-06-2021 14:15-0400 Body height 177.8 cm Pako Aguilar Other [address] Other 10-06-2021 14:15-0400 Body mass index (BMI) [Ratio] 32.28 kg/m2 Pako Aguilar Other [address] Other 10-06-2021 14:15-0400 Body temperature 97.3 [degF] Pako Aguilar Other [address] Other 10-06-2021 14:15-0400 Body weight 102.06 kg Pako Aguilar Other [address] Other 10-06-2021 14:15-0400 Diastolic blood pressure 73 mm[Hg] Pako Aguilar Other [address] Other 10-06-2021 14:15-0400 Systolic blood pressure 127 mm[Hg] Pako Aguilar Other [address] Other 09-08-2021 15:30-0400 Body height 177.8 cm Pako Aguilar Other [address] Other 09-08-2021 15:30-0400 Body temperature 98.1 [degF] Pako Aguilar Other [address] Other 09-08-2021 15:30-0400 Diastolic blood pressure 73 mm[Hg] Pako Aguilar Other [address] Other 09-08-2021 15:30-0400 Systolic blood pressure 149 mm[Hg] Pako Aguilar Other [address] Other Encounters Encounter Date Encounter Type Care Provider Facility Start: 04-13-2023 [facility] Comment on above: 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, with [place]term [place] [place] Start: 04-12-2023 End: 04-12-2023 ambulatory TERRY LOCK [facility] Start: 04-12-2023 Encounter for preprocedural cardiovascular examination TERRY LOCK [facility] Start: 04-12-2023 End: 04-12-2023 Office outpatient visit 25 minutes Terry Lock TECHNOLOGY [employer]ING [employer] Work Phone: [facility] Cardiology Comment on above: Preop cardiovascular exam (Primary Dx); Coronary artery disease involving [place] coronary artery of [place] heart without angina pectoris; Ischemic cardiomyopathy; Chronic systolic congestive heart failure [place] [place] Apical mural thrombus; Essential (primary) hypertension; Cardiac defibrillator in place- [employer]; Mixed hyperlipidemia Start: 04-12-2023 End: 04-12-2023 Patient encounter status Terry Lock TECHNOLOGY AND ENGINEERING TEACHER[employer] Work Phone: [employer] Work Phone: Start: 04-05-2023 End: 04-06-2023 ambulatory YOVANNY CALHOUN [facility] Start: 04-03-2023 End: 04-03-2023 ambulatory Dung Serna Other [address] Other Start: 04-03-2023 Telephone encounter Dung Serna [facility]surgery Start: 03-22-2023 End: 03-22-2023 ambulatory YOVANNY CALHOUN Not Available Start: 03-22-2023 End: 03-22-2023 ambulatory YOVANNY Michael CALHOUN Not Available Start: 03-07-2023 End: 03-07-2023 ambulatory YOVANNY CALHOUN Not Available Start: 01-11-2023 End: 01-11-2023 ambulatory Ghanshyam Kaye Other [address] Other Start: 01-11-2023 Telephone encounter Ghanshyam Kaye [facility] Start: 12-05-2022 End: 12-05-2022 ambulatory Ghanshyam Kaye Other [address] Other Start: 12-05-2022 Office outpatient vi sit 15 minutes Ghanshyam Kaye [facility] Start: 10-05-2022 Office outpatient ne w 30 minutes Dunghilario Serna [facility] Start: 10-05-2022 End: 10-05-2022 ambulatory Dung Serna [facility] Other Start: 08-02-2022 End: 08-02-2022 ambulatory Reddy Brandt Other [address] Other Start: 08-02-2022 Office outpatient vi sit 15 minutes Reddy Brandt [facility] Start: 06-02-2022 End: 06-02-2022 ambulatory Reddy Brandt Other [address] Other Start: 06-02-2022 Postop follow up vis it related to original px Reddy Brandt [facility] Start: 05-12-2022 End: 05-12-2022 ambulatory Reddy Brandt Other [address] Other Start: 05-12-2022 Telephone encounter Reddy Brandt [facility] Start: 05-03-2022 End: 05-03-2022 ambulatory Reddy Brandt Facility:[facility] Start: 05-03-2022 End: 05-03-2022 ambulatory DO Deon Braxton Work Phone: [facility] Work Phone: Start: 05-03-2022 End: 05-03-2022 Patient encounter procedure DO Deon Brxaton Work Phone: [facility]-[employer] [address] Start: 04-28-2022 End: 04-28-2022 ambulatory Reddy Brandt Other [address] Other Start: 04-28-2022 Office outpatient vi sit 15 minutes Reddy Brandt [facility] Start: 04-17-2022 End: 04-17-2022 ambulatory Reddy Brandt Other [address] Other Start: 04-17-2022 Telephone encounter Reddy Brandt [facility] Start: 04-12-2022 End: 04-12-2022 ambulatory Reddy Brandt Other [address] Other Start: 04-12-2022 Postop follow up vis it related to original px Reddy Karly [facility] Start: 03-15-2022 End: 03-15-2022 ambulatory Reddy Brandt Other [address] Other Start: 03-15-2022 Office outpatient vi sit 15 minutes Reddy Brandt [facility] Start: 02-07-2022 End: 02-07-2022 ambulatory Ghanshyam Kaye Other [address] Other Start: 02-07-2022 Office outpatient vi sit 15 minutes Ghanshyam Kaye [facility] Start: 02-03-2022 End: 02-03-2022 ambulatory Reddy Brandt Other [address] Other Start: 02-03-2022 Postop follow up vis it related to original px Reddy Karly [facility] Start: 01-24-2022 End: 01-24-2022 ambulatory Reddy Brandt Other [address] Other Start: 01-24-2022 Telephone encounter Reddy Gil [facility] Start: 01-20-2022 End: 01-20-2022 ambulatory Reddy Meehanley Other [address] Other Start: 01-20-2022 Postop follow up vis it related to original px Reddy Karly [facility] Start: 01-16-2022 End: 01-16-2022 ambulatory Reddy Meehanley Other [address] Other Start: 01-16-2022 Telephone encounter Reddy Gil [employer] Start: 01-06-2022 End: 01-06-2022 ambulatory Reddy Meehanley Other [address] Other Start: 01-06-2022 Postop follow up vis it related to original px Reddy Karly [facility] Start: 12-23-2021 End: 12-23-2021 ambulatory Reddy Brandt Other [address] Other Start: 12-23-2021 Postop follow up vis it related to original px Reddy Karly [facility] Start: 12-20-2021 End: 12-21-2021 ambulatory Reddy Perez Karly Facility:[facility] Start: 12-20-2021 End: 12-20-2021 Discharged Recurring DO Deon Braxton Work Phone: [facility]-Infusion Therapy - O/P Start: 12-14-2021 End: 12-14-2021 ambulatory Reddy Brandt Other [address] Other Start: 12-14-2021 Postop follow up vis it related to original px Reddy Karly [facility] Start: 12-12-2021 End: 12-12-2021 ambulatory Reddy Meehanley Other [address] Other Start: 12-12-2021 Telephone encounter Reddy Karly [facility] Start: 12-09-2021 End: 12-09-2021 ambulatory Reddy Brandt Other [address] Other Start: 12-09-2021 Postop follow up vis it related to original px Reddy Brandt [facility] Start: 11-29-2021 End: 11-29-2021 Evaluation and management of inpatient DO Deon Braxton Work Phone: [facility]-[address] [place] [address] Start: 11-29-2021 End: 11-29-2021 Admission to same day surgery center DO [facility]on [facility] Start: 11-28-2021 End: 11-28-2021 ambulatory Reddy Brandt Other [facility] Other Start: 11-28-2021 Postop follow up vis it related to original px Reddybryan Brandt [facility] Start: 11-21-2021 End: 11-21-2021 ambulatory Reddy Brandt Other [address] Other Start: 11-21-2021 Telephone encounter Reddy MOE [facility] Start: 11-03-2021 End: 11-03-2021 ambulatory Deon Braxton Facility:[facility] Start: 11-03-2021 End: 11-03-2021 Admission to same day surgery center DO Doen Braxton [facility] Start: 11-02-2021 End: 11-02-2021 ambulatory Reddy Perez Karly [facility] Other Start: 11-02-2021 Postop follow up vis it related to original px Reddy Karly [facility] Start: 11-02-2021 End: 11-02-2021 Patient encounter procedure DO Deon Braxton Work Phone: [facility] [facility] Start: 11-01-2021 End: 11-01-2021 Emergency department patient visit Deon Braxton Facility:[facility] Start: 11-01-2021 End: 11-01-2021 Emergency department patient visit DO Deon Ramoss Work Phone: [facility]Emergency [facility] Start: 11-01-2021 End: 11-01-2021 ambulatory Reddy Brandt Other [address] Other Start: 11-01-2021 Telephone encounter Reddy MOE G [facility] Start: 10-31-2021 End: 10-31-2021 ambulatory Reddy Brandt Other [address] Other Start: 10-31-2021 Postop follow up vis it related to original px Reddy Brandt [facility] Start: 10-21-2021 End: 10-27-2021 Evaluation and management of inpatient Ghanshyam Kaye Facility:[facility] Start: 10-21-2021 End: 10-27-2021 Evaluation and management of inpatient DO Deon Braxton Work Phone: [facility] [place] [facility] Start: 10-18-2021 End: 10-21-2021 Evaluation and management of inpatient Reddy Brandt Facility:[facility] Start: 10-18-2021 End: 10-21-2021 Evaluation and management of inpatient DO Deon Braxton Work Phone: [facility] Start: 10-14-2021 End: 10-14-2021 Patient encounter procedure DO Deon Ramoss Work Phone: [facility] Start: 10-12-2021 End: 10-12-2021 ambulatory Reddy Brandt Other [address] Other Start: 10-12-2021 Office outpatient vi sit 25 minutes Reddy Brandt [facility] Start: 10-10-2021 End: 10-10-2021 Patient encounter procedure DO Deon Braxton Work Phone: [facility]-MRI [facility] Start: 10-06-2021 End: 10-06-2021 Patient encounter procedure DO Deon Braxton Work Phone: [facility]-Lab [facility] Start: 10-06-2021 End: 10-06-2021 ambulatory Reddy Brandt Other [address] Other Start: 10-06-2021 Office outpatient vi sit 25 minutes Pako Aguilar [facility] Start: 10-06-2021 Telephone encounter Reddy [facility] Start: 09-29-2021 End: 09-29-2021 Patient encounter procedure DO Deon Braxton Work Phone: [facility]-Pacemaker Check Start: 09-26-2021 End: 09-26-2021 ambulatory Reddy Brandt Other [address] Other Start: 09-26-2021 Telephone encounter Reddy [facility] Start: 09-21-2021 End: 09-21-2021 Patient encounter procedure DO Deon Braxton Work Phone: [facility] Start: 09-21-2021 ambulatory SALINA LEE Faci lity:H1 Start: 09-09-2021 End: 09-10-[address] DEON BRAXTON Facility:[facility]1 Start: 09-09-2021 End: 09-10-2021 ambulatory SALINA LEE Facility:[facility] Start: 09-08-2021 End: 09-08-2021 ambulatory Pako Aguilar Other [address] Other Start: 09-08-2021 Office outpatient vi sit 25 minutes Pako Aguilar [facility] Start: 08-31-2021 End: 09-01-2021 ambulatory SALINA LEE Facility:[facility] Start: 08-26-2021 End: 08-27-2021 ambulatory SALINA LEE Facility:[facility] Start: 08-24-2021 End: 08-25-2021 ambulatory SALINA DOMINGOARIS Facility:[facility] Start: 08-10-2021 ambulatory SALINA LEE Faci lity:H1 Start: 07-05-2021 End: 07-06-2021 ambulatory ENMANUEL MCKAY Facility:[facility]1 Start: 06-06-2021 End: 06-07-2021 ambulatory DELONG O CLOUGHERTY Facility:[facility]1 Start: 06-06-2021 End: 06-07-2021 ambulatory DELONG O CLOUGHERTY Facility:[facility]1 Start: 06-03-2021 End: 06-04-2021 ambulatory DELONG O CLOUGHERTY Facility:[facility] Start: 05-31-2021 End: 06-01-2021 ambulatory DELONG O CLOUGHERTY Facility:[facility]1 Start: 05-26-2021 End: 05-27-2021 ambulatory DELONG O CLOUGHERTY Facility:[facility]1 Start: 05-23-2021 End: 05-24-2021 ambulatory DELONG O CLOUGHERTY Facility:[facility]1 Start: 05-19-2021 End: 05-20-2021 ambulatory DELONG O CLOUGHERTY Facility:[facility]1 Start: 05-18-2021 End: 05-19-2021 ambulatory DELONG O CLOUGHERTY Facility:[facility]1 Start: 05-17-2021 End: 05-18-2021 ambulatory DELONG O CLOUGHERTY Facility:[facility] Start: 05-16-2021 End: 05-16-2021 ambulatory DELONG O CLOUGHERTY Facility:[facility] Start: 05-16-2021 End: 05-17-2021 ambulatory DELONG O CLOUGHERTY Facility:[facility]1 Start: 05-13-2021 End: 05-14-2021 ambulatory DELONG O CLOUGHERTY Facility:[facility]1 Start: 05-09-2021 End: 05-10-2021 ambulatory DELONG O CLOUGHERTY Facility:[facility]1 Start: 05-03-2021 End: 05-04-2021 ambulatory DELONG O CLOUGHERTY Facility:[facility]1 Start: 04-29-2021 End: 04-30-2021 ambulatory DELONG O CLOUGHERTY Facility:[facility]1 Start: 04-25-2021 End: 04-26-2021 ambulatory DELONG O CLOUGHERTY Facility:[facility]1 Start: 04-19-2021 End: 04-20-2021 ambulatory DELONG O CLOUGHERTY Facility:[facility]1 Start: 04-15-2021 End: 04-16-2021 ambulatory DELONG O CLOUGHERTY Facility:[facility] Start: 04-14-2021 End: 04-15-2021 ambulatory DELONG O CLOUGHERTY Facility:[facility]1 Start: 04-11-2021 End: 04-12-2021 ambulatory DELONG O KAYLAUGHERTY Facility:H1 Start: 04-07-2021 End: 04-08-2021 ambulatory SALINA LEE Facility:[facility] Start: 04-04-2021 End: 04-05-[address] DEON BRAXTON Facility:[facility]1 Start: 03-31-2021 End: 04-01-2021 ambulatory BALJEET LEONG Facility:[facility] Start: 03-28-2021 End: 03-29-[address] DEON BRAXTON Facility:[facility]1 Start: 03-24-2021 End: 03-25-[address] DEON BRAXTON Facility:[facility]1 Start: 03-21-2021 End: 03-22-[address] DEON BRAXTON Facility:[facility]1 Start: 03-17-2021 End: 03-18-2021 ambulatory SALINA LEE Facility:[facility]1 Start: 03-10-2021 End: 03-11-2021 ambulatory SALINA LEE Facility:[facility]1 Start: 03-03-2021 End: 03-04-2021 ambulatory SALINA LEE Facility:[facility]1 Start: 02-28-2021 ambulatory DEON Ho lity:[facility] Start: 02-23-2021 End: 02-24-2021 ambulatory SALINA LEE Facility:[facility]1 Start: 02-22-2021 ambulatory DEON Ho lity:[facility] Start: 02-17-2021 End: 02-18-2021 ambulatory ASLINA LEE Facility:[facility]1 Start: 02-09-2021 Encounter for preprocedural laboratory examination SALINA LEE [facility] Start: 02-08-2021 End: 02-12-2021 Evaluation and management of inpatient SHAIKH Akiko CAMPUZANO Facility:[facility]1 Start: 02-05-2021 End: 02-05-2021 ambulatory DONALD BRADLEY Facility:[facility]1 Start: 02-02-2021 End: 02-03-2021 ambulatory SALINA LEE Facility:[facility] Start: 02-02-2021 End: 02-03-[address] DEON BRAXTON Facility:[facility]1 Start: 02-02-2021 End: 02-03-2021 Encounter for preprocedural laboratory examination DR DEON BRAXTON Facility:[facility]1 Start: 01-27-2021 End: 01-28-[address] DEON BRAXTON Facility:[facility]1 Start: 01-26-2021 End: 01-27-[address] DEON BRAXTON Facility:[facility]1 Start: 01-24-2021 End: 01-25-[address] DEON BRAXTON Facility:[facility]1 Start: 01-20-2021 End: 01-21-[address] DEON BRAXTON Facility:[facility]1 Start: 01-11-2021 End: 01-11-2021 ambulatory DEON BRAXTON Facility:[facility] Start: 01-10-2021 End: 01-11-2021 ambulatory DEON BRAXTON Facility:[facility] Start: 12-08-2020 End: 12-09-[address] DEON BRAXTON Facility:[facility]1 Start: 12-03-2020 End: 12-04-[address] DEON BRAXTON Facility:[facility]1 Start: 11-29-2020 End: 11-30-2020 ambulatory SALINA LEE Facility:[facility] Start: 11-25-2020 End: 11-26-2020 ambulatory SALINA LEE Facility:[facility] Start: 11-22-2020 End: 11-23-2020 ambulatory BALJEET LEONG Facility:[facility]1 Start: 11-18-2020 End: 11-19-2020 ambulatory BALJEET NAJERAERTY Facility:[facility]1 Start: 11-11-2020 End: 11-12-2020 ambulatory BALJEET NAJERAERTY Facility:[facility]1 Start: 11-04-2020 End: 11-05-2020 ambulatory SALINA LEE Facility:[facility] Procedures Date Procedure Procedure Detail Performing Clinician Start: 04-12-2023 Ecg routine ecg w/le ast 12 lds w/i&r Terry Lock TECHNOLOGY AND ENGINEERING TEACHER[employer] Work Phone: Start: 03-22-2023 Adult depression scr eening assessment Terry Lock TECHNOLOGY AND ENGINEERING TEACHER-[employer] Work Phone: Start: 12-29-2022 Diabetic retinal eye exam Terry Lock TECHNOLOGY AND ENGINEERING TEACHER-[employer] Work Phone: Start: 10-26-2022 Microalbumin [Mass/v olume] in Urine by Test strip Terry Lock TECHNOLOGY [facility] Work Phone: Start: 11-29-2021 Incision and drainag e of lower extremity DO Deon Braxton Work Phone: Start: 11-03-2021 Amputation of right lower limb DO Deon Braxton Work Phone: Start: 10-18-2021 Antibody screen Dung jones Comment on above: Result Comment: PERF ORMED BY: [place] [id number] [place] [address] PATHOLOGIST [employer] STATISTICAL PROGRAMMER SESAR YOST M.D. Start: 10-18-2021 Amputation of right lower limb DO Deon Braxton Work Phone: Start: 10-10-2021 MRI of lower leg DO Rylan Braxton Work Phone: Start: 09-21-2021 Plain X-ray of right tibia and right fibula DO Deon Braxton Work Phone: Start: 09-21-2021 X-ray of right knee DO Deon Braxton Work Phone: Start: 02-11-2021 Fusion of Right Tars al Joint with Internal Fixation Device, Open Approach BALJEET LEONG Start: 02-11-2021 Introduction of Othe r Anti-infective into Joints, Open Approach DELONG CLOMARIELA Start: 02-11-2021 Removal of Spacer fr om Right Ankle Joint, Percutaneous Approach BALJEET LEONG Start: 02-08-2021 Excision of Right Fi bula, Open Approach DELONG CLOMARIELA Start: 02-08-2021 Introduction of Othe r Anti-infective into Joints, Open Approach DELONG CLOMARIELA Start: 02-08-2021 Removal of Internal Fixation Device from Right Ankle Joint, Open Approach [facility] Aerobic microbial culture DO Deon Braxton Work Phone: Anaerobic microbial culture DO Deon Braxton Work Phone: History of amputatio n of foot Pako Aguilar Other Investigation of transfusion reaction DO Deon Braxton Work Phone: SARS-CoV-2, Influenz a & RSV (PCR) DO Deon Braxton Work Phone: Plan of Treatment Date Care Activity Detail Author Start: 01-13-2026 DTaP,Tdap and Td Vaccines (2 - Td or Tdap) DTaP,Tdap and Td Vaccines (2 - Td or Tdap) [facility] Start: 04-12-2024 Adult BMI Screening Adult BMI Screening [facility] Start: 04-12-2024 Tobacco Screening Tobacco Screening [facility] Start: 03-22-2024 Depression Screening Depression Screening [facility] Start: 03-22-2024 Fall Risk Screening Fall Risk Screening [facility] Start: 12-30-2023 Glaucoma screening Diabetic Ophthalmology Exam [facility] Start: 11-29-2023 End: 11-29-2023 Patient encounter procedure 11/29/2023 9:00 AM EDT Office Visit [facility] Internal Medicine - Family Medicine [address] [address] [facility] Internal Medicine - Family Medicine Start: 11-24-2023 Medicare Annual Wellness Visit Medicare Annual Wellness Visit [facility] Start: 10-27-2023 Diabetic foot examination Diabetic Foot Exam [facility] Start: 10-27-2023 Urine screening for protein Urine Microalbumin [facility] Start: 11-29-[address] [facility] Start: 11-29-[address] [facility] Start: 11-29-2021 Incision and drainage of lower extremity OR I&D Exploration Upper/Lower Extremity (Right) [facility] Start: 11-29-2021 End: 11-29-2021 Admission to same day surgery center Below knee amputation [facility] Start: 11-03-[address] [facility] Start: 11-03-[address] [facility] Start: 11-03-2021 Amputation of right lower limb OR Leg Amputation Above/Below (Right) [facility] Start: 11-03-2021 End: 11-03-2021 Admission to same day surgery center Departed Surgical Day Care [facility] Start: 11-02-2021 End: 11-02-2021 Patient encounter procedure Departed Clinical [facility]-Pre-Surgical Testing Start: 11-01-2021 End: 11-01-2021 Emergency department patient visit Departed Emergency [facility]-Emergency Room Start: 10-27-2021 [facility] Work Phone: Start: 10-21-2021 Hospital admission [facility] Work Phone: Start: 10-21-2021 Referral to clinical back panel padder [facility] Work Phone: Start: 10-21-2021 [facility] Work Phone: Start: 10-18-2021 Referral to clinical back panel padder [facility] Work Phone: Start: 10-18-2021 Detachment at Right Lower Leg, Mid, Open Approach Detachment at Right Lower Leg, Mid, Open Approach [facility] Start: 10-17-2021 [facility] Work Phone: Start: 10-14-1975 Adult BMI Follow Up Plan Adult BMI Follow Up Plan [facility] Patient Education [facility] Work Phone: Patient referral [facility] Work Phone: SARS-CoV-2 (COVID-19 ) N gene [Presence] in Respiratory specimen by MEREDITH with probe detection [facility] Work Phone: Immunizations Immunization Date Immunization Notes Care Provider Fa [facility] 03-12-2023 Covid-19,mrna, Lnp-s , Pf, 50mcg/0.5ml 12+ Terry Lock TECHNOLOGY AND ENGINEERING TEACHER-LISW Work Phone: [facility] 03-12-2023 Influenza Vaccine, Quadrivalent, Adjuvanted Terry Lock APRN-LISW Work Phone: [facility] 03-12-2023 RSV, mAb, nirsevimab-alip, 1 mL, to 24 months Terry Lock APRN-LISW Work Phone: [facility] 03-12-2023 RSV, recombinant, protein subunit RSVpreF, adjuvant reconstituted, 0.5 mL, PF Terry Lock TECHNOLOGY AND ENGINEERING TEACHER-LISW Work Phone: [facility] 06-14-2022 zoster vaccine recombinant Terry Lock TECHNOLOGY AND ENGINEERING TEACHER-LISW Work Phone: [facility] 04-15-2022 Covid-19, Mrna, Lnp- s, Bivalent, Pf, 50mcg/0.5ml or 25mcg/0.25ml Terry Lock TECHNOLOGY AND ENGINEERING TEACHER-LISW Work Phone: [facility] 04-15-2022 zoster vaccine recombinant Terry Lock TECHNOLOGY AND ENGINEERING TEACHER-[employer]ISW Work Phone: [facility] 04-11-2022 Influenza, High-dose , Quadrivalent Terry Lock TECHNOLOGY AND ENGINEERING TEACHER-LISW Work Phone: [facility] 03-01-2021 COVID-19 mRNA-1273 (Moderna) DO [facility] Work Phone: [facility] 03-01-2021 Seasonal, quadrivale nt, recombinant, injectable influenza vaccine, preservative free Terry Lock TECHNOLOGY AND ENGINEERING TEACHER-LISW Work Phone: [facility] 06-25-2020 COVID-19 mRNA-1273 (Moderna) DO [facility] Work Phone: [facility] 05-28-2020 COVID-19, mRNA, LNP- S, PF, 100mcg/0.5mL Dose Terry Lock TECHNOLOGY AND ENGINEERING TEACHER-LISW Work Phone: [facility] 05-25-2020 COVID-19, mRNA, LNP- S, PF, 100mcg/0.5mL Dose Terry Lock TECHNOLOGY AND ENGINEERING TEACHER-LISW Work Phone: [facility] 01-14-2020 influenza, seasonal, injectable Terry Lock TECHNOLOGY AND ENGINEERING TEACHER-LISW Work Phone: [facility] 12-30-2019 influenza, injectabl e, quadrivalent, preservative free Terry Lock TECHNOLOGY AND ENGINEERING TEACHER-[employer]ISW Work Phone: [facility] 04-07-2019 Influenza, injectabl e, Madin [place] Canine Kidney, preservative free, quadrivalent Terry Lock TECHNOLOGY AND ENGINEERING TEACHER-LISW Work Phone: [facility] 12-31-2018 pneumococcal conjuga te vaccine, 13 valent Terry Lock TECHNOLOGY AND ENGINEERING TEACHER-LISW Work Phone: [facility] 01-23-2018 influenza, injectabl e, quadrivalent, contains preservative Terry Lock APRN-LISW Work Phone: [facility] 01-23-2018 influenza, injectabl e, quadrivalent, preservative free Terry Lock TECHNOLOGY AND ENGINEERING TEACHER-LISW Work Phone: [facility] 02-05-2017 influenza, injectabl e, quadrivalent, preservative free Terry Lock TECHNOLOGY AND ENGINEERING TEACHER-LISW Work Phone: [facility] 02-05-2017 pneumococcal conjuga te vaccine, 13 valent Terry Lock APRN-LISW Work Phone: [facility] 01-14-2017 influenza, injectabl e, quadrivalent, contains preservative Terry Lock APRN-LISW Work Phone: [facility] 01-14-2016 tetanus toxoid, redu joseph diphtheria toxoid, and acellular pertussis vaccine, adsorbed Terry Lock TECHNOLOGY AND ENGINEERING TEACHER-LISW Work Phone: [facility] 01-02-2016 influenza virus vacc ine, unspecified formulation Terry Lock APRN-LISW Work Phone: [facility] 08-13-2015 zoster vaccine, live Terry Lock APRN-LISW Work Phone: [facility] 12-22-2014 influenza, seasonal, injectable, preservative free Terry Lock TECHNOLOGY AND ENGINEERING TEACHER-LISW Work Phone: [employer] 01-26-2014 pneumococcal conjuga te vaccine, 13 valent Terry Lock TECHNOLOGY AND ENGINEERING TEACHER-LISW [facility]2014 influenza, seasonal, injectable Terry Lock TECHNOLOGY AND ENGINEERING TEACHER-LISW [facility] 01-12-2014 Seasonal trivalent influenza vaccine, adjuvanted, preservative free Terry Lock TECHNOLOGY AND ENGINEERING TEACHER-LISW [facility] 09-17-2012 pneumococcal polysaccharide vaccine, 23 valent Terry Lock TECHNOLOGY AND ENGINEERING TEACHER-LISW Work Phone: [employer] 09-17-2012 pneumococcal vaccine , unspecified formulation Terry Lock TECHNOLOGY AND ENGINEERING TEACHER-LISW Work Phone: [facility] Payers Date Payer Category Payer Medicare [id number] 2023 Medicare ANTHEM MEDICARE ANTHEM MEDICARE ADVANTAGE [id number] 2023-Present [phone] [address] [place] [address] [id number] 2022 Medicare [id number] 2021 Medicare [id number] 2021 Self-pay [id number] 2021 Unknown 1959 Medicare [id number] 1957 Unknown [id number] 1957 Unknown [id number] [id number] 1957 Unknown [id number] [id number] 1957 Unknown [id number] [id number] 1957 Unknown [id number] [id number] 1957 Unknown [id number] [id number] 1957 Unknown [id number] 2.16.840.1.947691.3.579.2.593 1957 Unknown [id number] 2.16.840.1.583640.3.579.2.593 1957 Unknown [id number] 2.16.840.1.845113.3.579.2.593 1957 Unknown [id number] [id number] 1957 Unknown [id number] [id number] 1957 Unknown [id number] 2.16.840.1.191526.3.579.2.593 1957 Unknown [id number] [id number] 1957 Unknown [id number] 2.16.840.1.209097.3.579.2.593 1957 Unknown [id number] [id number] 1957 Unknown [id number] 2.16.840.1.457528.3.579.2.593 1955 Unknown [id number] 2.16.840.1.306560.3.579.2.593 1955 Unknown [id number] 2.16.840.1.243065.3.579.2.593 1957 Unknown [id number] 2.16.840.1.695934.3.579.2.593 1957 Unknown [id number] 2.16.840.1.650124.3.579.2.593 1957 Unknown [id number] 2.16.840.1.853242.3.579.2.593 1957 Unknown [id number] 2.16.840.1.717743.3.579.2.59 1957 Unknown [id number] 2.16.840.1.213155.3.579.2.59 1957 Unknown [id number] 2.16.840.1.065701.3.579.2.59 1957 Unknown [id number] 2.16.840.1.301396.3.579.2. 1957 Unknown [id number] 2.16.840.1.012033.3.579.2.593 1957 Unknown [id number] 2.16.840.1.583270.3.579.2.59 1957 Unknown [id number] 2.16.840.1.723887.3.579.2.593 1957 Unknown [id number] 2.16.840.1.687901.3.579.2.59 1957 Unknown [id number] 2.16.840.1.166126.3.579.2.593 1957 Unknown [id number] 2.16.840.1.553249.3.579.2. 1957 Unknown [id number] 2.16.840.1.110683.3.579.2.59 1957 Unknown [id number] 2.16.840.1.129352.3.579.2.59 1957 Unknown [id number] 2.16.840.1.615591.3.579.2.593 1957 Unknown [id number] 2.16.840.1.561377.3.579.2.59 1957 Unknown [id number] 2.16.840.1.387158.3.579.2.593 1957 Unknown [id number] 2.16.840.1.646178.3.579.2.59 1957 Unknown [id number] 2.16.840.1.715503.3.579.2.59 1957 Unknown [id number] 2.16.840.1.172461.3.579.2. 1957 Unknown [id number] 2.16.840.1.320692.3.579.2. 1957 Unknown [id number] 2.16.840.1.329722.3.579.2. 1957 Unknown [id number] 2.16.840.1.242513.3.579.2. 1957 Unknown [id number] 2.16.840.1.894630.3.579.2. 1957 Unknown [id number] 2.16.840.1.654755.3.579.2. 1957 Unknown [id number] 2.16.840.1.489799.3.579.2. 1957 Unknown [id number] 2.16.840.1.317677.3.579.2.59 1957 Unknown [id number] 2.16.840.1.734250.3.579.2. 1957 Unknown [id number] 2.16.840.1.970548.3.579.2.59 1957 Unknown [id number] 2.16.840.1.431067.3.579.2.593 1957 Unknown [id number] 2.16.840.1.256174.3.579.2.593 1957 Unknown [id number] 2.16.840.1.689239.3.579.2.593 1957 Unknown [id number] 2.16.840.1.564170.3.579.2.593 1957 Unknown [id number] 2.16.840.1.313105.3.579.2.593 1957 Unknown [id number] 2.16.840.1.552310.3.579.2.593 1957 Unknown [id number] 2.16.840.1.802813.3.579.2.593 1957 Unknown [id number] 2.16.840.1.458793.3.579.2.593 1957 Unknown [id number] 2.16.840.1.500044.3.579.2.593 1957 Unknown [id number] 2.16.840.1.637407.3.579.2.593 1957 Unknown [id number] 2.16.840.1.666885.3.579.2.593 1957 Unknown [id number] 2.16.840.1.896928.3.579.2.593 1957 Unknown [id number] 2.16.840.1.958887.3.579.2.593 1957 Unknown [id number] 2.16.840.1.371719.3.579.2.593 1957 Unknown [id number] 2.16.840.1.111206.3.579.2.1259 1957 Unknown [id number] 2.16.840.1.159333.3.579.2.1259 1957 Unknown [id number] 2.16.840.1.499022.3.579.2.1259 1957 Unknown [id number] 2.16.840.1.638315.3.579.2.1286 1957 Unknown [id number] 2.16.840.1.298269.3.579.2.1286 Unknown [facility] [id number] Unknown [facility] [id number] Unknown [id number] 2.16.840.1.553383.3.579.2.531 Unknown [id number] 2.16.840.1.786659.3.579.2.531 Unknown [id number] 2.16.840.1.861908.3.579.2.531 Unknown [id number] 2.16.840.1.873973.3.579.2.531 Unknown [id number] 2.16.840.1.778282.3.579.2.531 Unknown [id number] 2.16.840.1.435145.3.579.2.531 Unknown [id number] 2.16.840.1.333744.3.579.2.531 Unknown [id number] 2.16.840.1.021025.3.579.2.531 Unknown [id number] 2.16.840.1.196841.3.579.2.531 Social History Date Type Detail Facility Unknown if ever smoked [address] Other Start: 04-11-2022 End: 04-12-2023 Sex Assigned At [facility] Start: 10-19-2021 End: 01-18-2022 Tobacco smoking status NHIS Never smoked tobacco (finding) [facility] Start: 1955 Sex Assigned At Male [facility] Start: 01-18-2022 Tobacco use and exposure Smokeless tobacco non-user [facility] Start: 04-12-2023 Alcohol intake Current drinker of alcohol (finding) [facility] Start: 04-11-2022 End: 04-12-2023 History of Social function [facility] Do you belong to any clubs or organizations such as rastafarian groups, unions, fraternal or athletic groups, or school groups? No [facility] Are you now , , , , never or living with a partner? [facility] How often to you hav e a drink containing alcohol? 2-4 times a month [facility] How many standard dr inks containing alcohol do you have on a typical day? 1 or 2 [facility] How often do you hav e 6 or more drinks on 1 occasion? Never [facility] How hard is it for y ou to pay for the very basics like food, housing, medical care, and heating Somewhat hard [facility] Adolescent depressio n screening assessment 0 [facility] Do you feel stress - tense, restless, nervous, or anxious, or unable to sleep at night because your mind is troubled all the time - these days [OSQ] Not at all [facility] Start: 04-11-2022 Education 21 [facility] Start: 09-10-2019 Alcohol Comment social [facility] Start: 1955 Sex Assigned At Not on file [facility] Medical Equipment Procedure Code Equipment Code Equipment Origin al Text Equipment Identifier Dates Gft Hmn Tiss 250 mg Amniofill - [id number] - [id number] Start: 12-27-2018 Gft Sft Tis Matr istem - [id number] - [id number] Start: 01-27-2019 Tiss Grafix Prim e 3x4cm - [id number] - [id number] Start: 09-15-2019 Evera Mri Xt Vr Defibrillator [id number] Start: 07-13-2015 Sprint Quattro S ecure Mri [id number] Start: 07-13-2015 Tissue Epifix 2x 4 Cm - [id number] - [id number] Start: 12-27-2018 USE DIRECTED FOUR TIMES DAILY [id number] Start: 08-07-2022 Goals Date Patient Goal Desired Activity /State Personal health goal Comment on above: Formatting of this n ote might be different from the original. Evaluation of progress towards goal: Safe dc transition from hospital to home with family support. Resume with C. Personal health goal Comment on above: Formatting of this n ote might be different from the original. Evaluation of progress towards goal: Pt plans to discharge home with [facility]. Functional Status Date Assessment Result Facility 10-27-2021 Functional status Patient is Pro gressing Toward Baseline [facility] Work Phone: 10-21-2021 Functional status Patient is Pro gressing Toward Baseline [facility] Work Phone: 10-18-2021 Functional status Patient at Baseline [facility] Work Phone: Mental Status Date Assessment Result Facility 10-27-2021 Cognitive function Cognitive Sta tus Patient at Baseline [facility] Work Phone: 10-21-2021 Cognitive function Cognitive Sta tus Patient is Progressing Toward Baseline [facility] Work Phone: 10-18-2021 Cognitive function Cognitive Sta tus Patient at Baseline [facility] Work Phone: Clinical Notes 01-05-2021 to 04-12-2023 Terry Lock, KRUNAL-LISW - 04/12/2023 11:30 AM Sue High LPN - 04/12/2023 11:30 AM EST Note Date & Type Note Facility 04-12-2023 History of Present illness Narrative Anai Goodman Date of visit: 04/12/2023 Date of : 1955 Age: 67 y.o. Patient Active Problem List Diagnosis Cardiac defibrillator in place- Medtronic Essential (primary) hypertension Apical mural thrombus Ischemic cardiomyopathy Hyperlipemia Type 2 diabetes mellitus with diabetic neuropathic arthropathy, with long-term current use of insulin [place] Chronic systolic congestive heart failure [place] Coronary artery disease involving [place] coronary artery of [place] heart without angina pectoris Hearing loss Personal history of colonic polyps Colon polyps Diverticulosis large intestine w/o perforation or abscess w/o bleeding Chronic obstructive pulmonary disease [place] 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 Gastroesophageal reflux disease with esophagitis without hemorrhage Stage 3b chronic kidney disease [place] Subepithelial esophageal mass Sarcoidosis Diabetic retinopathy [place] Obstructive sleep apnea syndrome Diabetic neuropathy [place] Bilateral sensorineural hearing loss Unilateral complete AKA, right ([facility] Allergies Allergen Reactions Doxycycline Other reaction(s): Chest Pain Levofloxacin Other reaction(s): Chest Pain Chlorpheniramine Dextromethorphan Hbr Itching Idamscmue-On-Ijesxvxqmaozj Guaifenesin Other reaction(s): Itching of skin Hydrocodone Phenylephrine Tussionex Itching Current Outpatient Medications Medication Sig Dispense Refill ADMELOG U-100 INSULIN LISPRO 100 unit/mL solution Inject 15 Units under the skin in the morning and 15 Units at noon and 15 Units in the evening. Inject with meals. albuterol (PROVENTIL HFA;VENTOLIN HFA) 90 mcg/actuation inhaler Inhale 2 puffs as needed Indications: bronchospasm prevention. allopurinoL (ZYLOPRIM) 100 mg tablet Take 2 tablets (200 mg total) by mouth in the morning. 180 tablet 1 apixaban (ELIQUIS) 5 mg tablet Take 1 tablet (5 mg total) by mouth in the morning and 1 tablet (5 mg total) before bedtime. 60 tablet 11 ascorbic acid (VITAMIN C) 500 mg tablet Take 1 tablet (500 mg total) by mouth in the morning. aspirin 81 mg 1 tablet (81 mg total) in the morning. atorvastatin (LIPITOR) 80 mg tablet Take 1 tablet (80 mg total) by mouth in the morning. Indications: excessive fat in the blood. 90 tablet 1 bumetanide (BUMEX) 2 mg tablet TAKE 1 TABLET(2 MG) BY MOUTH DAILY (Patient taking differently: Take 0.5 tablets (1 mg total) by mouth 2 (two) times a day before meals.) 90 tablet 1 carvediloL (COREG) 6.25 mg tablet Take 1 tablet (6.25 mg total) by mouth in the morning and 1 tablet (6.25 mg total) before bedtime. 180 tablet 3 cholecalciferol, vitamin D3, (VITAMIN D3) 5,000 units capsule Take by mouth daily. 250 mcg coenzyme Q10 100 mg capsule Take 2 capsules (200 mg total) by mouth in the morning. dapagliflozin propanediol (FARXIGA) 10 mg tablet Take 1 tablet (10 mg total) by mouth in the morning. 90 tablet 1 flash glucose sensor ([employer] GeneticsSTYLE LELO 2 SENSOR) kit CHANGE EVERY 2 WEEKS DIRECTED 6 kit 3 fluticasone furoate-vilanteroL (BREO ELLIPTA) 200-25 mcg/dose blister with device Inhale 1 puff once daily. Rinse mouth with water and spit after every dose. 60 each 11 insulin glargine (LANTUS) 100 unit/mL injection Inject 0.7 mL (70 Units total) under the skin nightly Indications: type 2 diabetes mellitus. 40 mL 1 insulin syringe-needle U-100 1 mL 31 gauge x 5/16 syringe USE DIRECTED FOUR TIMES DAILY 400 each 1 ipratropium-albuteroL (DUONEB) 0.5 mg-3 mg(2.5 mg base)/3 mL nebulizer USE 3 ML VIA NEBULIZER FOUR TIMES DAILY 1080 mL 1 linezolid (ZYVOX) 600 mg tablet Take 1 tablet (600 mg total) by mouth in the morning and 1 tablet (600 mg total) before bedtime. losartan (COZAAR) 25 mg tablet TAKE 1 TABLET(25 MG) BY MOUTH IN THE MORNING 90 tablet 0 magnesium oxide (MAGOX) 400 mg tablet Take 1 tablet (400 mg total) by mouth in the morning. multivitamin (THERAGRAN) tablet Take 1 tablet by mouth in the morning. nitroglycerin (NITROSTAT) 0.[address] 1 tablet (0.4 mg total) under the tongue as needed for chest pain. 90 tablet 2 predniSONE (DELTASONE) 5 mg tablet Take 1 tablet (5 mg total) by mouth every other day. 45 tablet 1 spironolactone (ALDACTONE) 25 mg tablet TAKE 1 TABLET(25 MG) BY MOUTH EVERY DAY 90 tablet 2 benzonatate (TESSALON PERLES) 200 mg capsule Take 1 capsule (200 mg total) by mouth 4 (four) times a day as needed for cough. (Patient not taking: Reported on 04/12/2023) 20 capsule 0 collagenase (SantyL) ointment Apply 1 Application topically in the morning. (Patient not taking: Reported on 04/12/2023) No current facility-administered medications for this visit. Chief Complaint Patient presents with Pre-op Exam EST PT PRE OP DR FOOT SURG DR LEE History of Present Illness 67-year-old male presents today for preoperative cardiac risk stratification and clearance for foot surgery with Dr. Lee. Has past medical history of anterior STEMI 03/21/2015 with 5 stents to the LAD with peak troponin of 110. Chronic HFrEF, ischemic cardiomyopathy S/p ICD, diabetes mellitus, PVD with history of Charcot deformity of his right foot, extra cardiac sarcoid, history of LV apical thrombus - chronic/fixed, CKD, HTN, HLD. Last echocardiogram from 04/2020 showed LVEF of 30-35% with small mural fixed thrombus in the apex of left ventricle. Lipid panel from 03/22/2023 shows LDL - goal 34. At today's visit he tells me he is doing well. Has no anginal chest pains or exertional shortness of breath. Primary functional limitations are secondary to his right leg prosthesis. Still able to go up and down a flight of stairs, and ambulate well, just has to slow down due to his prosthetic. Blood pressure and heart rate are controlled. EKG in the office today shows sinus rhythm with PVCs, right bundle branch block which is not new. No acute ischemic changes when compared to 1 a couple years ago. Past Medical History: Diagnosis Date Acute ST elevation myocardial infarction (STEMI) involving left anterior descending (LAD) coronary artery ([facility]) 05/28/2015 Hyperlipidemia Interstitial lung disease ([facility]) Left ventricular failure [place] MRSA (methicillin resistant staph aureus) culture positive Peptic ulceration Presence of automatic (implantable) cardiac defibrillator ST elevation (STEMI) myocardial infarction [place] 2015 x 5 stents Stage 3b chronic kidney disease ([facility] 04/22/2020 Unilateral complete AKA, right ([facility] 03/31/2022 No data recorded No data recorded No data recorded Past Surgical History: Procedure Laterality Date ANKLE LIGAMENT RECONSTRUCTION Right 2020 APPLICATION AMNIOFILL Right 12/27/2018 Performed by Arlen Olguin DPM at [facility] APPLICATION WOUND VAC ( NOT done) Right 01/27/2019 Performed by Terry Hector DPM at [facility] CARDIAC DEFIBRILLATOR PLACEMENT 07/13/2015 Medtronic COLONOSCOPY N/A 04/07/2020 Performed by Deon Braxton DO at [facility] DEBRIDEMENT FOOT EXCISION RT FOOT ULCER, APPLICATION BIOLOGIC SKIN GRAFT RT FOOT, APPLICATION OF WOUND VAC RT FOOT Right 01/27/2019 Performed by Terry Hector DPM at [facility] DEBRIDEMENT FOOT WITH APPLICATION OF GRAFIX Right 09/15/2019 Performed by Terry Hector DPM at [facility] ESOPHAGOGASTRODUODENOSCOPY N/A 05/19/2020 Performed by Deon Braxton DO at [facility] EXCISION 5TH METATARSAL Right 12/30/2018 Performed by Terry Hector DPM at [facility] FINGER SURGERY FOOT SURGERY 07/2020 [facility] SURGERY Bilateral LAPAROSCOPIC CHOLECYSTECTOMY N/A 06/21/2020 Performed by Deon Justice MD at [facility] LENGTHENING TENDON RIGHT, PLANTAR FASCIOTOMY Right 09/15/2019 Performed by Terry Hector DPM at [facility] SKIN GRAFT LOWER EXTREMITY (APPLICATION OF BIOLOGIC SKIN GRAFT RT FOOT Right 01/27/2019 Performed by Terry Hector DPM at [facility] Family History Problem Relation Age of Onset Diabetes Mother Coronary artery disease Mother Sleep apnea Mother Heart disease Father Coronary artery disease Father Hypertension Father Diabetes Sister Hypertension Sister Sleep apnea Sister Social History Socioeconomic History Marital status: Spouse name: Not on file Number of children: Not on file Years of education: Not on file Highest education level: Some college, no degree Occupational History Not on file Tobacco Use Smoking status: Never Smokeless tobacco: Never Vaping Use Vaping Use: Never used Substance and Sexual Activity Alcohol use: Yes Comment: social Drug use: No Sexual activity: Defer Other Topics Concern Caffeine Use Yes Social History Narrative Not on file Social Determinants of Health Financial Resource Strain: Medium Risk (11/23/2022) Overall Financial Resource Strain (CARDIA) Difficulty of Paying Living Expenses: Somewhat hard Food Insecurity: No Food Insecurity (04/12/2023) Hunger Screening Food Insecurity - Worry: Never True Food Insecurity - Inability: Never True Transportation Needs: No Transportation Needs (04/11/2022) PRAPARE - Transportation Lack of Transportation (Medical): No Lack of Transportation (Non-Medical): No Physical Activity: Inactive (11/23/2022) Exercise Vital Sign Days of Exercise per Week: 0 days Minutes of Exercise per Session: 0 min Stress: No Stress Concern Present (04/11/2022) [place] [place] [employer] - Occupational Stress Questionnaire Feeling of Stress : Not at all Social Connections: Moderately Integrated (04/11/2022) Social Connection and Isolation Panel [NHANES] Frequency of Communication with Friends and Family: Twice a week Frequency of Social Gatherings with Friends and Family: Twice a week Attends Alevism Services: 1 to 4 times per year Active Member of Clubs or Organizations: No Attends Club or Organization Meetings: Never Marital Status: Interpersonal Safety: Not At Risk (04/11/2022) Humiliation, Afraid, Rape, and Kick questionnaire Fear of Current or Ex-Partner: No Emotionally Abused: No Physically Abused: No Sexually Abused: No Review of Systems Review of Systems Neurological: Positive for loss of balance. CARDIOVASCULAR: Please review HPI. Physical Examination General appearance: Alert, oriented and cooperative. In no acute distress. Skin: Warm and dry to touch. Neck: No JVD, No carotid bruit. Neck supple, trachea midline. Respiratory: Clear to auscultation bilaterally, no use of accessory muscles. Cardiovascular: RRR with normal S1 and S2 with no murmurs. Musculoskeletal: No peripheral edema. Neurologic: Oriented to time, person and place, affect appropriate. No focal/major motor defects noted. Psychiatric: Appropriate mood, memory and judgement. VITAL SIGNS: BP 126/74 (BP Site: Left Arm, BP Postition: Sitting) Pulse 74 Ht 182.9 cm (6') Wt 96.6 kg (213 lb) SpO2 97% BMI 28.89 kg/m Orders Placed or Reconciled This Encounter Medications magnesium oxide (MAGOX) 400 mg tablet Sig: Take 1 tablet (400 mg total) by mouth in the morning. linezolid (ZYVOX) 600 mg tablet Sig: Take 1 tablet (600 mg total) by mouth in the morning and 1 tablet (600 mg total) before bedtime. There are no discontinued medications. IMPRESSIONS/PLAN 1. Preop cardiovascular exam - POCT EKG / sinus rhythm PVCs. No acute ischemic changes. Known right bundle branch block -no anginal or exertional symptoms. Primary functional limitation secondary to leg prosthetic. -greater than 4 METS activity -given his moderate to severe LV dysfunction and known coronary disease, he is a high-risk patient for relatively low risk orthopedic surgery. Non prohibitive. Okay to hold aspirin 7 days prior, restart afterwards when cleared to do so. Okay to hold Eliquis 48 hours prior, restart afterwards when cleared to do so. Discussed the risk of cardiovascular event while off anti-platelet/NOAC therapy. Verbalized understanding 2. Coronary artery disease involving [place] coronary artery of [place] heart without angina pectoris -aspirin, statin, beta-doreen 3. Ischemic cardiomyopathy -carvedilol, losartan, Aldactone 4. Chronic systolic congestive heart failure (CMS-HCC) -compensated 5. Apical mural thrombus -small, fixed on echocardiogram 04/2020 -has been maintained on Eliquis therapy 5 mg b.i.d. 6. Essential (primary) hypertension -well controlled 7. Cardiac defibrillator in place- [employer] (List[employer])tronic -3.4 years of battery life as of 04/05/2023 -will need in office device check at next visit 8. Mixed hyperlipidemia -LDL at goal. Continue statin therapy Stable, doing well from a cardiovascular standpoint. No changes were made today. Continue current medications. Follow-up in 1 year with MD. Will need device check in office at that time. TODAYS ORDERS Orders Placed This Encounter Procedures POCT EKG FOLLOW UP Return in about 1 year (around 04/12/2024) for Next scheduled follow up. PCP: Deon Braxton Jr, DO Referring Physician: Deon Braxton DO [address] [place] [address] FANNY Owens 04/12/23 1145 Office note faxed to Dr Lee for clearance documented in this encounter [employer] 12-05-2022 Evaluation note Encounter Date Diagnosis Assessment Notes Dec, Charcot foot due to diabetes mellitus (ICD-10 - E11.610) Dec, Status post transmetatarsal amputation of left foot (ICD-10 - Z89.432) as above, RX written. Dec, Hx of right BKA (ICD-10 - Z89.511) [address] [facility] 07-06-2023 Evaluation note* Encounter Date Diagnosis Assessment Notes Treatment Notes Treatment Clinical Notes Sep, Cervical stenosis of spinal canal (ICD-10 - M48.02) I dependently reviewed the MRI of the cervical spine and the report is well as the EMG of the upper and lower extremity and reports There is very mild cord compression with no signal change at C3-4 there is abutment of the cord with possible slight deformation at the next 1 or 2 lower levels. The patient is not hyperreflexic he does not appear to be overtly myelopathic he has numerous other medical issues including an amputation of the right lower extremity and the left toes at this point I do not see evidence for surgical intervention with this patient had a long discussion with the family namely and patient regarding indication operation postop course risk and benefits they agree. I will see him again in 6 months. 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 We have been following his incision along as it has been slow to heal but he continues to improve. His incision has healed nicely and his stump is less of an issue now. He is getting fitted for his final prosthesis soon. I will plan to see him back at the 1 year anniversary July, Other specified postprocedural states (ICD-10 - Z98.890) Patient is progressing well. Formal therapy provided today for gait training and balance exercises. July, Disruption of external operation (surgical) wound, not elsewhere classified, subsequent encounter (ICD-10 - T81.31XD) [address] Other 03-03-2023 Evaluation note* Encounter Date Diagnosis Assessment Notes Treatment Notes Treatment Clinical Notes May, Other chronic osteomyelitis of right tibia (ICD-10 - M86.661) Anai returns today after right BKA I&D and repeat closure with incisional VAC application. We have been following his incision along as it has been slow to heal but he continues to improve. His incision is continued to progress and is of less concern at this point. It all appears healthy and benign at this time. He is having a pressure point on the anterior tibia with his prosthesis and he is getting this addressed with his prosthetists. I would continue to monitor this closely. I will plan to see him back in 2 months Anai is a 66-year-old male who returns almost 6 months status post right BKA wound revision/wound incisional VAC application. Patient has healed routinely and is progressing well. He does complain of pain at the location of prosthetists. He is advised to continue with physical therapy exercises at home. He may discontinue formal physical therapy at this time. Patient is following up at [facility] for changes to prosthetic. I did recommend use of a cane to help offload some weight which may reduce his pain. Patient voiced understanding and states no further questions at this time. May, Other specified postprocedural states (ICD-10 - Z98.890) May, Postoperative wound dehiscence, initial encounter (ICD-10 - T81.31XA) [address] Other 01-27-2023 Evaluation note* Encounter Date Diagnosis Assessment Notes Treatment Notes Treatment Clinical Notes Apr, Other chronic osteomyelitis of right tibia (ICD-10 - M86.661) Anai returns today after right BKA I&D and repeat closure with incisional VAC application. We have been following his incision along as it has been slow to heal but he continues to improve. His incision is continued to progress and is of less concern at this point. It all appears healthy and benign at this time. He did have a new ulcer forming on the anterior surface of the tibia where he is having some wear issues. Overall this looks benign and he is planning to see his prosthetists for some padding changes. He has been increasing his ambulation and his prosthesis wear. I would defer changes to the prosthetists at this time. I have asked him to maybe slow down a little bit to allow this to heal appropriately and decrease tension and stress on the skin in this area. I will plan to see him back in 2 months Patient returns with an erythematic abrasion at the site of prosthesis. I informed patient that he may continue with physical therapy. He may discontinue using Xeroform dressing and only cover with a band-aid. Patient is scheduled to see Rima for more adjustments to the prosthesis. I do not have any concern that there is infection present. Patient denies any fever, chills, or nausea. I recommend patient discontinue formal therapy, and he may work on exercises at home. Patient is to call for any worsening of condition. He voices understanding and states no further questions. Apr, Other specified postprocedural states (ICD-10 - Z98.890) Apr, Postoperative wound dehiscence, initial encounter (ICD-10 - T81.31XA) [address] Other 01-11-2023 Evaluation note* Encounter Date Diagnosis Assessment Notes Treatment Notes Treatment Clinical Notes Apr, Other chronic osteomyelitis of right tibia (ICD-10 - M86.661) Anai returns today after right BKA I&D and repeat closure with incisional VAC application. We have been following his incision along as it has been slow to heal but he continues to improve. He has nothing but dry eschar remaining on the wound. It all appears healthy and benign at this time. He has been increasing his ambulation and his prosthesis. Doing well overall and in good spirits. Does ask about driving. I will work on getting this set up with Dr. Kaye. I will plan to see him back in 2 months Anai returns today after right BKA I&D and repeat closure with incisional VAC application. He is doing well site appears well healed, no signs of infection noted. He has been improving ambulation with prosthesis. Advised to continue with physical therapy. There is some irritation present from prostetic, patient will see Rima for any adjustments that need to be made. We will continue to monitor. Follow up in 2 months time. Patient voices understanding and states no further questions. Apr, Other specified postprocedural states (ICD-10 - Z98.890) Apr, Postoperative wound dehiscence, initial encounter (ICD-10 - T81.31XA) [address] Other 12-14-2022 Evaluation note* Encounter Date Diagnosis Assessment Notes Treatment Notes Treatment Clinical Notes Mar, Other chronic osteomyelitis of right tibia (ICD-10 - M86.661) Anai returns today after right BKA I&D and repeat closure with incisional VAC application. We have been following his incision along as it has been slow to heal but he continues to improve. He has nothing but dry eschar remaining on the wound. It all appears healthy and benign at this time. He has been increasing his ambulation and his prosthesis. Doing well overall and in good spirits Patient is progressing well from surgery at this time. Continue progressing activity and wearing the prosthetic. Progress with physical therapy. May apply moisturizer to dry skin when leaving the site open to air. Call with questions/concern s. Mar, Other specified postprocedural states (ICD-10 - Z98.890) Mar, Postoperative wound dehiscence, initial encounter (ICD-10 - T81.31XA) [address] Other 11-08-2022 Evaluation note* Encounter Date Diagnosis Assessment Notes Treatment Notes Treatment Clinical Notes Jan, Right below-knee amputee (ICD-10 - Z89.511) Proceed with K3 level, transtibial prosthesis, preparatory. Diligent monitoring of residual limb. Stop wearing prosthesis immediately if wound should worsen, develop erythema, increased pain, etc. Wearing schedule. [address] Other 11-04-2022 Evaluation note* Encounter Date Diagnosis Assessment Notes Treatment Notes Treatment Clinical Notes Jan, Other chronic osteomyelitis of right tibia (ICD-10 - M86.661) Anai returns today after right BKA I&D and repeat closure with incisional VAC application. He is doing well. His incision appears benign today. We have been doing Xeroform daily and will continue this. I do want him to follow and wound care to monitor this area very closely. His eschar appears healthy today but this is an area where we have had multiple issues. He can continue to leave this open to air and we will continue to monitor this as it heals. I will see him back in 2 weeks for recheck Patient continues to progress. No signs of erythema or infection noted. Advised to continue with previous treatment plan. Patient voices understanding. Jan, Other specified postprocedural states (ICD-10 - Z98.890) Jan, Postoperative wound dehiscence, initial encounter (ICD-10 - T81.31XA) [address] Other 10-21-2022 Evaluation note* Encounter Date Diagnosis Assessment Notes Treatment Notes Treatment Clinical Notes Dec, Other chronic osteomyelitis of right tibia (ICD-10 - M86.661) Anai returns today after right BKA I&D and repeat closure with incisional VAC application. He is doing well. His incision appears benign today. We have removed his dressing and sutures today. We can leave the wound open to air at this time. He can wash with warm soapy water. I do want him to follow and wound care to monitor this area very closely. His eschar appears healthy today but this is an area where we have had multiple issues. He can continue to leave this open to air and we will continue to monitor this as it heals. I will see him back in 2 weeks for recheck Instructed patient to continue with non weight bearing. Discussed with patient he is able to start stump shrinking Dec, Other specified postprocedural states (ICD-10 - Z98.890) Dec, Postoperative wound dehiscence, initial encounter (ICD-10 - T81.31XA) [address] Other 10-07-2022 Evaluation note* Encounter Date Diagnosis Assessment Notes Treatment Notes Treatment Clinical Notes Dec, Other chronic osteomyelitis of right tibia (ICD-10 - M86.661) Anai returns today after right BKA I&D and repeat closure with incisional VAC application. He is doing well. His incision appears benign today. We have removed his dressing and sutures today. We can leave the wound open to air at this time. He can wash with warm soapy water. I do want him to follow and wound care to monitor this area very closely. His eschar appears healthy today but this is an area where we have had multiple issues. He can continue to leave this open to air and we will continue to monitor this as it heals. I will see him back in 2 weeks for recheck Patient progressing well from surgery. Advised of motion and strengthening exercises. Advised to keep pressure off of the area for the time being. Patient voiced understanding. We will refer back to wound care for chronic skin abrasion. Dec, Other specified postprocedural states (ICD-10 - Z98.890) Dec, Postoperative wound dehiscence, initial encounter (ICD-10 - T81.31XA) [address] Other 09-23-2022 Evaluation note* Encounter Date Diagnosis Assessment Notes Treatment Notes Treatment Clinical Notes Dec, Other chronic osteomyelitis of right tibia (ICD-10 - M86.661) Anai returns today after right BKA I&D and repeat closure with incisional VAC application. He is doing well. His incision appears benign today. We have removed his dressing and sutures today. We can leave the wound open to air at this time. He can wash with warm soapy water. I will see him back in 2 weeks for recheck Patient progressing well from surgery. Sutures still in place. There is slight erythema present. No drainage at the site. Advised on gentle motion and exercise. We will remove sutures today. Patient to continue with scooter and dressing while out. Advised it is okay to leave site open to air when at home. Patient voices understanding and states no further questions at this time. Dec, Other specified postprocedural states (ICD-10 - Z98.890) Dec, Postoperative wound dehiscence, initial encounter (ICD-10 - T81.31XA) [address] Other 09-14-2022 Evaluation note* Encounter Date Diagnosis Assessment Notes Treatment Notes Treatment Clinical Notes Dec, Other chronic osteomyelitis of right tibia (ICD-10 - M86.661) Anai returns today after right BKA I&D and repeat closure with incisional VAC application. He is doing well. His incision appears benign today. We have removed his incisional VAC which shows an essentially closed wound measuring 8 x 0.1 x 0.1 cm which we were still going to continue an incisional VAC for. We are getting this set up with wound care. We have placed Xeroform and 4 x 4's over the incision today and asked him to keep this on until we can get him into wound care. Once he is able to get the wound VAC on then we will plan to see him back in 1 week prior to his next wound VAC change so we can reassess the wound and remove sutures if able. We will plan to continue wound VAC for a minimum of 6 weeks with weekly changes as this wound continues to heal. Dec, Other specified postprocedural states (ICD-10 - Z98.890) Dec, Postoperative wound dehiscence, initial encounter (ICD-10 - T81.31XA) [address] Other 09-09-2022 Evaluation note* Encounter Date Diagnosis Assessment Notes Treatment Notes Treatment Clinical Notes Dec, Other chronic osteomyelitis of right tibia (ICD-10 - M86.661) Anai returns today after right BKA I&D and repeat closure with incisional VAC application. He is doing well. His incision appears benign today. We have reapplied his incisional wound VAC. At this time I want to get him in with wound care to start 1-2 times weekly incisional VAC changes at their recommendation. I will plan to see him back in 2 weeks for repeat check. He does have sutures in place which I will plan to leave in place until at least the next visit. Continue antibiotics per infectious disease. Faxed wound center information to [phone] and left a voicemail. Dec, Other specified postprocedural states (ICD-10 - Z98.890) Dec, Postoperative wound dehiscence, initial encounter (ICD-10 - T81.31XA) [address] Other 08-30-2022 History and physical note Author Reddy Brandt [facility] November 29, 2021 11:49am Note Date/Time November 29, 2021 11 :32am [facility] [address] [place] [address] Orthopedic Surgery H&P Signed Patient: Anai Goodman MR#: [id number] : 1955 Acct:[id number] Age/Sex: 66 / M Adm Date: 2 Loc: CT Room: Type: [facility] Attending Dr: Reddy Brandt DO Copies to: DO Reddy Rushing DO~ Date of Service: 11/29/2021 HPI History of Present Illness History of Present Illness: Anai is a 66-year-old male well-known to me from a right BKA for osteomyelitis who had wound dehiscence and revision BKA approximately month ago who presents to the ED with repeat wound dehiscence after a repeat fall. [facility] Vaccinated for COVID-19?: Yes Medical History (Updated 11/29/21 @ 11:48 by Reddy Brandt DO) Arthritis Asthma CKD (chronic kidney disease), stage III Coronary artery disease Diabetes mellitus, type 2 Gout Hyperlipidemia Hypertension Kidney failure Neuropathy GRACY on CPAP Skin cancer Surgical History AICD (automatic cardioverter/defibrillator) present History of cardiac catheterization stents x5 History of cholecystectomy History of foot surgery left , all toes removed History of orthopedic surgery ankle fusion History of orthopedic surgery right knee Hx of right BKA Family History Mother Diabetes mellitus type 1 Father Heart disease Social History Smoking Status: Never smoker Substance Use Type: Alcohol Substance Abuse Comment: Occasional alcohol Allergies & Medications Medications and Allergies Allergies chlorpheniramine [From Tussionex] Allergy (Verified 11/29/21 08:59) Hives dextromethorphan Allergy (Verified 11/29/21 08:59) Unknown Reaction doxycycline Allergy (Verified 11/29/21 08:59) Chest Pain hydrocodone [From Tussionex] Allergy (Verified 11/29/21 08:59) Hives levofloxacin Allergy (Verified 11/29/21 08:59) Chest Pain phenylephrine Allergy (Verified 11/29/21 08:59) Unknown Reaction guaifenesin Adverse Reaction (Verified 11/29/21 08:59) Itching Home Medications acetaminophen 500 mg tablet 500 mg PO Q4H PRN Pain 30 days #100 tabs 10/27/21 [Rx Confirmed 11/29/21] albuterol sulfate 90 mcg/actuation aerosol inhaler (Ventolin HFA) 2 puff inhalation DAILY PRN asthma 30 days #1 ea 10/27/21 [Rx Confirmed 11/29/21] allopurinol 100 mg tablet 100 mg PO QHS 30 days #30 tabs 10/27/21 [Rx Confirmed 11/29/21] apixaban 5 mg tablet (Eliquis) 5 mg PO BID #60 tabs 10/27/21 [Rx Confirmed 11/29/21] atorvastatin 80 mg tablet 80 mg PO QAM 30 days #30 tabs 10/27/21 [Rx Confirmed 11/29/21] bumetanide 1 mg tablet 1 mg PO BID 30 days #60 tabs 10/27/21 [Rx Confirmed 11/29/21] carvedilol 6.25 mg tablet 6.25 mg PO BID 30 days #60 tabs 10/27/21 [Rx Confirmed 11/29/21] cholecalciferol (vitamin D3) 125 mcg (5,000 unit) tablet (Vitamin D3) 250 mcg POBID 30 days #120 tabs 07/28/22 [Rx Confirmed 11/29/21] coenzyme Q10 200 mg PO QAM 30 days #30 tabs 10/27/21 [Rx Confirmed 11/29/21] fluticasone 232 mcg-salmeterol 14 mcg/actuation breath activated powdr 1 puff inhalation BID #1 ea 10/27/21 [Rx Confirmed 11/29/21] insulin aspart U-100 100 unit/mL (3 mL) subcutaneous pen (Novolog Flexpen U-100 Insulin aspart) 1 sliding scale dose subcut TID.WM.HS #15 mL 10/27/21 [Rx Confirmed 11/29/21] insulin aspart U-100 100 unit/mL (3 mL) subcutaneous pen (Novolog Flexpen U-100 Insulin aspart) See Protocol subcut TID.WITH.MEALS.HS #15 mL 10/27/21 [Rx Confirmed 11/29/21] insulin detemir U-100 100 unit/mL (3 mL) subcutaneous pen (Levemir FlexTouch U- 100 Insulin) 40 unit (0.4 mL) subcut QHS #3 mL 10/27/21 [Rx Confirmed 11/29/21] losartan 25 mg tablet 25 mg PO QAM 30 days #30 tabs 10/27/21 [Rx Confirmed 11/29/21] magnesium oxide 400 mg (241.3 mg magnesium) tablet 400 mg PO QAM 30 days #30 tabs 10/27/21 [Rx Confirmed 11/29/21] multivitamin with folic acid 400 mcg tablet (Thera) 1 tab PO QAM 30 days #30 tabs 10/27/21 [Rx Confirmed 11/29/21] nitroglycerin 0.4 mg sublingual tablet 0.4 mg sublingual DAILY PRN Chest Pain #0tabs 10/27/21 [Rx Confirmed 11/29/21] spironolactone 25 mg tablet 25 mg PO QAM 30 days #30 tabs 10/27/21 [Rx Confirmed 11/29/21] oxycodone 5 mg tablet (Roxicodone) 5 mg PO Q6H PRN pain 7 days #30 tabs 11/03/21[Rx Confirmed 11/29/21] Exam Physical Exam Vital Signs: Temp Pulse Resp BP Pulse Ox O2 Del Method 98.5 F 67 18 112/63 98 Room Air 11/29/21 09:04 11/29/21 09:04 11/29/21 09:04 11/29/21 09:05 11/29/21 09:04 11/29/21 09:04 Narrative: I lower extremities evaluated. There is a stellate area of dehiscence in the anterior central portion of the wound directly over the tibial cut. The medial and lateral portions of the incision are well-healed and benign. He has exposedsoft tissue and I can probe down to bone in the wound. There is some slow ooze active bleeding present. No purulence or signs of infection noted Results Lab Results Result Diagrams: 11/29/21 10:50 11/29/21 10:50 Labs: Laboratory Results - Last 48 hrs. 11/29/21 10:45: COVID-19 PCR Interp N/A All other labs are normal. Assessment/Plan (1) Wound dehiscence: Code(s): T81.30XA - Disruption of wound, unspecified, initial encounter (2) Below knee amputation: Code(s): S88.119A - Complete traumatic amputation at level between knee and ankle, unspecified lower leg, initial encounter Plan Anai is a 66-year-old male here for right BKA wound dehiscence. We will plan to take the OR for I&D and repeat closure of the wound the application. He is agreeable to this. He can be discharged home postoperatively. We will plan for follow-up in 1 week. At this juncture we have discussed the findings and diagnosis as well as reviewed appropriate imaging and performed interpretation of testing. Surgical intervention is recommended. Prior medical notes and history have been reviewed.Surgical versus non-operative management have been discussed in detail and non-operative management was given as an option. The risks of surgical intervention were given. Pre- operative optimization will be done prior to surgical procedure to limit gissell-operative risks. I have discussed the planned procedure, how and who performs the procedure, and the personnel involved. Cardiovascular, pulmonary, and other life threatening episodes can occur during surgery althoughthere is a low risk of these happening. Surgical risks including bleeding, neurovascular injury, wound closure problems and infection were discussed. Gissell-operative risks including infection, bleeding, wound healing problems, and need for further surgery were discussed. It was discussed that there is a possibilityof blood transfusion with any surgical procedure and the risks involved in receiving a blood transfusion. Possibility of, and need for, future bracing or DME use, physical or occupational therapy, mental therapy, rehabilitation, pain management and need for secondary procedures was discussed. I have warned against smoking and the use of tobacco products due to the risks associated withthem, in particular, poor healing. I have advised against the adjunct faculty for medical terminology use of narcotic pain medication. I have advised to follow all post-operative instructions in order to obtain the best outcome. Informed consent has been verbally affirmed and signed as indicated. Documented By: Reddy Brandt DO 11/29/21 1129 Signed By: <Electronically signed by Reddy Brandt DO> 11/29/21 1149 [facility] Work Phone: [phone]) 703-536208-29-2022 Evaluation note* Encounter Date Diagnosis Assessment Notes Treatment Notes Treatment Clinical Notes Oct, Other chronic osteomyelitis of right tibia (ICD-10 - M86.661) Anai returns today after right BKA I&D and repeat closure. He is doing well. His incision appears benign. We have remove sutures today and have placed Steri-Strips. We will allow him to work on knee range of motion at this time. Continue to protect the stump and can start stump shrinking. Plan for follow-up in 2 weeks for recheck and hopefully suture removal at that time. We will continue to be very cautious with the central portion of this wound. Continue his antibiotics. Follow-up in 3 weeks for wound check Sutures removed today under sterile conditions. Patient tolerated well with no adverse reactions. Steri strips placed over incision. May allow incision to get wet in clean running water, no caldwell/han/stre ams. Instructed patient to continue non weightbearing. Oct, Other specified postprocedural states (ICD-10 - Z98.890) Oct, Postoperative wound dehiscence, initial encounter (ICD-10 - T81.31XA) Oct, Encounter for remova l of sutures (ICD-10 - Z48.02) [address] Other 08-03-2022 Evaluation note* Encounter Date Diagnosis Assessment Notes Treatment Notes Treatment Clinical Notes Oct, Other chronic osteomyelitis of right tibia (ICD-10 - M86.661) Anai returns today after just being seen on Sunday with new right lower extremity issue after BKA. He has had wound dehiscence after accidental injury at home yesterday. I do recommend revision amputation and washout due to the size of the dehiscence. He is agreeable to this. We will get this set up. Plan for an I&D with revision amputation and possible wound VAC/incisional VAC application. Plan for follow-up 2 weeks postoperatively. Oct, Other specified postprocedural states (ICD-10 - Z98.890) Oct, Postoperative wound dehiscence, initial encounter (ICD-10 - T81.31XA) We will plan for revision amputation to allow for better closure of wound. May consider placing a wound vac at the time of surgery. Surgical procedure, risks, recovery and restrictions discussed in detail. Patient was in understanding and wishes to proceed. [address] Other 08-01-2022 Evaluation note* Encounter Date Diagnosis Assessment Notes Treatment Notes Treatment Clinical Notes Oct, Other chronic osteomyelitis of right tibia (ICD-10 - M86.661) Anai is here today now 2 weeks s/p right BKA for right foot osteomyelitis. He is doing well. He is returned home at this time. He has home health care seeing him. He has not been taking his antibiotics but I have asked him to resume those today. I would like for him to be on antibiotics 6 weeks postoperatively. At this time his examination is benign although he does still have some mild drainage. We will continue dressing changes with home health care. I will ask him to continue working on knee range of motion while maintaining knee extension while at rest. Okay to continue using scooter. Plan for follow-up in 2 weeks for suture removal. Patient instructed to reestart Cephalexin, work on daily ROM exercises. Oct, Other specified postprocedural states (ICD-10 - Z98.890) Oct, Other The patient has been involved in our cooperative treatment plan and agrees to move forward with treatment at this time. [address] Other 07-27-2022 Progress note Author Ghanshyam Kaye [facility] October 25, 2021 11:37pm Note Date/Time October 25, 2021 11:3 7pm [facility] [address] [place] [address] Physiatry(Rehab) Progress Note Signed Patient: Anai Goodman MR#: [id number] : 1955 Acct:[id number] Age/Sex: 66 / M Adm Date: 2 Loc: 5T Room: 9H7336-9 Type : ADM IN Attending Dr: Ghanshyam Kaye MD Copies to: ~ Date of Service: 10/25/2021 Subjective Subjective Narrative: Mr. Goodman is a 66 year old male who is [facility] for strengthening s/p planned right BKA. Patient's past medical history significant for DM type II, CAD, MT, s/p pacemaker/defibrillator insertion, CKD, osteomyelitis of the right tibia. He reports a history of traumatic injury to the right foot several years ago when he dropped several pallets onto his foot at work. He has had numerous surgeries with hardware placement in attempt to heal the fractures. He has beenreceiving chronic steroids and p.o. antibiotics. Unfortunately, all of them were unsuccessful and for the past 12 months he has been treated for osteomyelitis and chronic Charcot foot infection and was nonambulatory. The decision was made to perform right transtibial amputation. He underwent the above procedure performed by Dr. Perez on 10/17/2021. He is to remain nonweightbearing to the operative extremity until wound healing is complete. Postoperatively, patient's blood glucose has been elevated. Basal insulin dose was adjusted, now improving. Otherwise, unremarkable postop course. On exam, patient denies any significant pain or discomfort, states does not require pain medications at this time. Denies phantom pain in the stump. Operative site is unremarkable without signs of infection. He reports no GI or issues. His appetite is improving and he is drinking plenty of fluids. He is working with therapy and is able to ambulate short distances with a walker while remaining NWB to the right lower extremity. Preoperatively, he was independent with ADLs and a IADLs, used a knee scooter for household and community mobility. He lives with his in their one-storycondo with one-step to enter. Interval note: No acute events overnight. He's doing well Ok to use knee scooter for mobility if stays off operative site, weight bearing mostly through patella PAin controlled Reviewed at team meeting Progresses well in therapy. Ambulates 30+50 feet using wheeled walker and contact-guard assist. Contact-guard assist for sitting to standing, standby assist for side to side transfer. Exam Physical Exam Vital Signs: Temp Pulse Resp BP Pulse Ox O2 Del Method FiO2 98.2 F 76 15 116/68 98 Room Air 21 10/25/21 16:00 10/25/21 16:00 10/25/21 16:00 10/25/21 16:00 10/25/21 16:00 10/25/21 16:00 10/22/21 04:14 Objective Labs CBC & Chem 7: 10/25/21 06:07 10/25/21 06:07 Labs: Laboratory Results - last 24 hr 10/25/21 10/25/21 10/25/21 06:07 06:07 12:32 Corrected WBC 5.7 Uncorrected WBC Count 5.7 RBC 3.81 L Hgb 11.2 L Hct 33.0 L MCV 86.7 MCH 29.3 MCHC 33.8 RDW 17.6 H Plt Count 159 MPV 8.6 Neut % (Auto) 69.1 Lymph % (Auto) 9.4 [place] % (Auto) 14.5 Eos % (Auto) 6.7 Baso % (Auto) 0.3 Neut # (Auto) 4.0 Lymph # (Auto) 0.5 L [place] # (Auto) 0.8 Eos # (Auto) 0.4 Baso # (Auto) 0.0 Nucleated RBC % (auto) 0.1 PHA Creatinine Clear 60.35 Sodium 136 Potassium 3.6 Chloride 102 Carbon Dioxide 25.8 BUN 32 H Creatinine 1.24 Est GFR ( Amer) > 60 Est GFR (Non-Af Amer) 59 Glucose 176 H POC Glucose 160 Calcium 9.1 10/25/21 10/25/21 16:31 20:23 Corrected WBC Uncorrected WBC Count RBC Hgb Hct MCV MCH MCHC RDW Plt Count MPV Neut % (Auto) Lymph % (Auto) [place] % (Auto) Eos % (Auto) Baso % (Auto) Neut # (Auto) Lymph # (Auto) [place] # (Auto) Eos # (Auto) Baso # (Auto) Nucleated RBC % (auto) PHA Creatinine Clear Sodium Potassium Chloride Carbon Dioxide BUN Creatinine Est GFR ( Amer) Est GFR (Non-Af Amer) Glucose POC Glucose 249 275 Calcium Medications and Allergies Allergies and Active Meds: Allergies chlorpheniramine [From Tussionex] Allergy (Verified 10/18/21 11:48) Hives dextromethorphan Allergy (Verified 10/18/21 11:48) Unknown Reaction doxycycline Allergy (Verified 10/18/21 11:48) Chest Pain hydrocodone [From Tussionex] Allergy (Verified 10/18/21 11:48) Hives levofloxacin Allergy (Verified 10/18/21 11:48) Chest Pain phenylephrine Allergy (Verified 10/18/21 11:48) Unknown Reaction guaifenesin Adverse Reaction (Verified 10/18/21 11:48) Itching Active Medications Generic Name Dose Route Start Last Admin Trade Name Freq PRN Reason Stop Dose Admin Acetaminophen 500 mg 10/21/21 17:51 10/25/21 20:28 Acetaminophen 500 Mg Tablet PO 10/21/22 17:50 500 mg Q4H PRN Administration Pain Al Hydrox/Mg Hydrox/Simethicone 30 ml 10/21/21 17:51 Mag Hydrox/Al Hydrox/Simeth 30 Ml Udc PO 10/21/22 17:50 Q4H PRN Indigestion Albuterol 2 puff 10/21/21 15:50 Albuterol Hfa 60 Puff/8 Gram Inhaler INHALATION 10/21/22 15:49 DAILY PRN asthma Allopurinol 100 mg 10/21/21 22:00 10/25/21 20:28 Allopurinol 100 Mg Tablet PO 10/21/22 21:59 100 mg QHS CB Administration Atorvastatin Calcium 80 mg 10/22/21 09:00 10/25/21 08:07 Atorvastatin 80 Mg Tablet PO 10/22/22 08:59 80 mg QAM CB Administration Bisacodyl 10 mg 10/21/21 17:51 Bisacodyl 10 Mg Supp.Rect MI 10/21/22 17:50 DAILY PRN Constipation Bumetanide 1 mg 10/23/21 21:00 10/25/21 20:28 Bumetanide 1 Mg Tablet PO 10/23/22 20:59 1 mg BID CB Administration Carvedilol 6.25 mg 10/21/21 21:00 10/25/21 20:28 Carvedilol 6.25 Mg Tablet PO 10/21/22 20:59 6.25 mg BID CB Administration Docusate Sodium 100 mg 10/21/21 17:51 Docusate 100 Mg Capsule PO 10/21/22 17:50 BID PRN Constipation Docusate Sodium 283 mg 10/21/21 17:51 Docusate Enema 283 Mg/5 Ml Enema MI 10/21/22 17:50 DAILY PRN Constipation Insulin Aspart 0 units 10/21/21 17:00 10/25/21 20:27 Insulin Aspart 300 Units/3 Ml Insuln.Pen SUBCUT 10/21/22 16:59 7 units TID.WM.[employer] Administration Protocol Insulin Aspart 0 units 10/21/21 17:00 10/25/21 20:30 Insulin Aspart 300 Units/3 Ml Insuln.Pen SUBCUT 10/21/22 16:59 Not Given TID.WITH.MEALS.[employer] Protocol Insulin Detemir 40 units 10/21/21 22:00 10/25/21 20:28 Insulin Detemir 300 Units/3 Ml Insuln.Pen SUBCUT 10/21/22 21:59 40 units QHS CB Administration Lactulose 30 gm 10/21/21 17:51 Lactulose 20 Gm/30 Ml Udc PO 10/21/22 17:50 DAILY PRN Constipation Losartan Potassium 25 mg 10/22/21 09:00 10/25/21 08:08 Losartan 25 Mg Tablet PO 10/22/22 08:59 25 mg QAM [facility] Administration Magnesium Oxide 400 mg 10/22/21 09:00 10/25/21 08:07 Magnesium Oxide 400 Mg Tablet PO 10/22/22 08:59 400 mg QAM [facility] Administration Multivitamins 1 tab 10/22/21 09:00 10/25/21 08:08 Multivitamin 1 Tab Tablet PO 10/22/22 08:59 1 tab QAM CB Administration Nitroglycerin 0.4 mg 10/21/21 15:50 Nitroglycerin 0.4 Mg Tab.Subl SUBLINGUAL 10/21/22 15:49 DAILY PRN Chest Pain Rivaroxaban 10 mg 10/22/21 09:00 10/25/21 08:08 Rivaroxaban 10 Mg Tablet PO 10/22/22 08:59 10 mg DAILY CB Administration Fluticasone/Salmeterol 1 puff 10/21/21 21:00 10/25/21 20:31 Fluticasone/Salmeterol 232-14 Mcg 60 Puff Inhaler INHALATION 10/21/22 20:59 1 puff BID CB Administration Sennosides 2 tab 10/22/21 12:00 Sennosides 8.6 Mg Tablet PO 10/22/22 11:59 DAILY@12 PRN If no BM in 2 days Sodium Chloride 0 ml 10/21/21 17:51 Sodium Chloride 0.9 % 10 Ml Syringe IV-PUSH 10/21/22 17:50 PRN PRN Flush Spironolactone 25 mg 10/22/21 09:00 10/25/21 08:08 Spironolactone 25 Mg Tablet PO 10/22/22 08:59 25 mg QAM CB Administration Vitamin D 250 mcg 10/21/21 21:00 10/25/21 20:28 Cholecalciferol 125 Mcg (5,000 Units) Tablet PO 10/21/22 20:59 250 mcg BID CB Administration Assessment/Plan Assessment/Plan (1) Below knee amputation: Assessment/Problem Details: S/p planned right BKA on 10/17/2021. Incision without signs of postoperative infection. Pain is well controlled, denies any phantom pains. Code(s): S88.119A - Complete traumatic amputation at level between knee and ankle, unspecified lower leg, initial encounter Status: Acute (2) Type 2 diabetes mellitus: Assessment/Problem Details: On sliding scale and basal insulin coverage at baseline. Insulins were adjustedpostoperatively due to elevated blood glucose. Continue monitoring FSBS's closely Code(s): E11.9 - Type 2 diabetes mellitus without complications Status: Acute (3) Impaired mobility and activities of daily living: Assessment/Problem Details: PT/OT to evaluate and treat. Code(s): Z74.09 - Other reduced mobility; Z78.9 - Other specified health status Status: Acute (4) Kidney failure: Assessment/Problem Details: Most recent and creatinine is 1.32, BUN is 32. Unsure of patient's baseline. Can consult nephrology if needed. Code(s): N19 - Unspecified kidney failure Status: Acute (5) Hypertension: Assessment/Problem Details: Stable, continue current med treatment. Code(s): I10 - Essential (primary) hypertension Status: Acute (6) Hyperlipidemia: Code(s): E78.5 - Hyperlipidemia, unspecified Status: Acute Plan 66-year-old male s/p planned right BKA due to chronic osteomyelitis and infection of the foot. No significant postoperative complications. * Labs unremarkable * Progressing towards goals * FI tomorrow, plan for home * OK for knee scooter for mobility Patient education Pressure ulcer prophylaxis; encourage mobilization, frequent postural changes, pressure-relief techniques DVT prophylaxis: Continue home Xarelto Encourage deep breathing exercise incentive spirometry. Monitor bladder. Toileting schedule. Continue current bladder management, with scans as needed and CIC if needed. Start bowel care program every day to obtain continence, prevent ileus. Maintain fall precautions: Place call light within reach. Gait and balance retraining Functional training and self-care and home management, including activities of daily living and instrumental activities of daily living Provision of the necessary gait aids and functional adaptive equipment to enhance the patient's a functional nondenominational Ensure adequate nutrition and hydration Sleep: Denies any issues Pain: Denies any issues Discharge planning: Home with in 7 to 10 days. I spent greater than 25 minutes for services, including [id number] encounter with the patient, discussion of the case, plan of care, and exam; and [id number] activities, such as reviewing pertinent domestic travel consultant documentation, recent therapy notes, laboratory and radiology studies, and discussionof case with care team including nursing, case management coordinator, and therapists. More than 50 % of time was spent on patient/family counseling or coordination ofcare. Documented By: Ghanshyam Kaye MD 10/25/212333 Signed By: <Electronically signed by Ghanshyam Kaye MD> 10/25/212336 [facility] Work Phone: [phone]) 665-218107-26-2022 Progress note Author Ghanshyam Kaye [facility] October 25, 2021 10:20am Note Date/Time October 23, 2021 11:5 7am [facility] [address] [place] [address] Physiatry(Rehab) Progress Note Signed Patient: Anai Goodman MR#: [id number] : 1955 Acct:[id number] Age/Sex: 66 / M Adm Date: 2 Loc: Room: [address] [place] [address] Type : ADM IN Attending Dr: Ghanshyam Kaye MD Copies to: ~ <Chante Narayan APRN - Last Filed: 10/23/21 11:57> Date of Service: 10/23/2021 Subjective <Chante Narayan APRN - Last Filed: 10/23/21 11:57> Subjective Narrative: Mr. Goodman is a 66 year old male who is [facility] for strengthening s/p planned right BKA. Patient's past medical history significant for DM type II, CAD, MT, s/p pacemaker/defibrillator insertion, CKD, osteomyelitis of the right tibia. He reports a history of traumatic injury to the right foot several years ago when he dropped several pallets onto his foot at work. He has had numerous surgeries with hardware placement in attempt to heal the fractures. He has beenreceiving chronic steroids and p.o. antibiotics. Unfortunately, all of them were unsuccessful and for the past 12 months he has been treated for osteomyelitis and chronic Charcot foot infection and was nonambulatory. The decision was made to perform right transtibial amputation. He underwent the above procedure performed by Dr. Perez on 10/17/2021. He is to remain nonweightbearing to the operative extremity until wound healing is complete. Postoperatively, patient's blood glucose has been elevated. Basal insulin dose was adjusted, now improving. Otherwise, unremarkable postop course. On exam, patient denies any significant pain or discomfort, states does not require pain medications at this time. Denies phantom pain in the stump. Operative site is unremarkable without signs of infection. He reports no GI or issues. His appetite is improving and he is drinking plenty of fluids. He is working with therapy and is able to ambulate short distances with a walker while remaining NWB to the right lower extremity. Preoperatively, he was independent with ADLs and a IADLs, used a knee scooter for household and community mobility. He lives with his in their one-storycondo with one-step to enter. Interval note: No acute events overnight. Reports no operative/phantom pain and does not require any pain medication. Stump without drainage or edema. Appetite is adequate, he is drinking plenty of fluids. Reports no GI or issues. Asking about discharge, wants to talk to caseworker protective services about insurance coverage, but thinks he would be ready to go home Sunday or Sunday this week. Has an appointment with orthopedic surgeon this coming Sunday. Wants to makesure he can either reschedule or have Dr. Perez see him while on inpatient rehabunit. Progresses well in therapy. Ambulates 30+50 feet using wheeled walker and contact-guard assist. Contact-guard assist for sitting to standing, standby assist for side to side transfer. Review of Systems <Chante Narayan APRN - Last Filed: 10/23/21 11:57> Constitutional Constitutional: Denies chills, Denies fatigue, Denies fever(s) and Denies weakness Eyes Eyes: Reports system reviewed and no additional complaints, except as documented ENT Ears, Nose, Mouth, and Throat: Reports system reviewed and no additional complaints, except as documented Cardiovascular Cardiovascular: Reports system reviewed and no additional complaints, except as documented Respiratory Respiratory: Reports system reviewed and no additional complaints, except as documented Gastrointestinal Gastrointestinal: Reports system reviewed and no additional complaints, except as documented Genitourinary Genitourinary: Reports system reviewed and no additional complaints, except as documented Musculoskeletal Musculoskeletal: Reports system reviewed and no additional complaints, except asdocumented Integumentary/Breasts Skin/Breast: Reports system reviewed and no additional complaints, except as documented Neurologic Neurologic: Reports system reviewed and no additional complaints, except as documented and Denies weakness Psychiatric Psychiatric: Reports system reviewed and no additional complaints, except as documented Endocrine Endocrine: Reports system reviewed and no additional complaints, except as documented and Denies fatigue Allergic/Immunologic Allergic/Immunologic: Reports system reviewed and no additional complaints, except as documented Exam <Chante Narayan APRN - Last Filed: 10/23/21 11:57> Physical Exam Vital Signs: Temp Pulse Resp BP Pulse Ox O2 Del Method FiO2 97.4 F L 79 18 130/75 97 Room Air 21 10/23/21 05:00 10/22/21 14:26 10/23/21 05:00 10/23/21 05:00 10/23/21 05:00 10/23/21 07:30 10/22/21 04:14 Const General: cooperative, comfortable, no acute distress, well developed and well groomed Nutritional Appearance: average body habitus Orientation: alert, awake and oriented x3 HEENT Head: normal to inspection, normocephalic, atraumatic and no cyanosis of lips/distal nose Ears: hearing grossly normal bilaterally Face and sinus: normal facial exam Eyes General: appearance normal, both eyes and all related structures Pupils: PERRL EOM: EOM intact bilaterally Neck Neck: full ROM, no lymphadenopathy, trachea midline, supple and nontender Chest Chest palpation & inspection: normal inspection of the chest Resp Effort & Inspection: normal respiratory effort, able to speak in complete sentences, symmetric chest movement, no audible wheezes and no cough Auscultation: clear to auscultation bilaterally Cardio Jugular venous pressure: no JVD Palpation: normal PMI Rate: regular rate Rhythm: regular rhythm Heart Sounds: S1 normal and S2 normal GI Inspection: normal to inspection Palpation: soft, no hepatosplenomegaly and nontender Auscultation: normal bowel sounds General: deferred Musc Cervical Spine: normal cervical lordosis and cervical ROM normal Skin General: no rashes or lesions noted Other: Right BKA, dressing intact without drainage, no surrounding erythema/edema. Neuro General: patient alert, patient awake, patient oriented x3 and moves all extremities Cranial Nerves: CN's II-XII intact bilaterally Psych Appearance: grossly normal Mood: congruent mood Affect: normal affect Speech and Movement: speech and movement normal Attitude: cooperative Thought Process: normal Thought Content: normal Insight: insight good Judgment: judgment good Objective <Chante Narayan APRN - Last Filed: 10/23/21 11:57> Labs CBC & Chem 7: 10/25/21 06:07 10/25/21 06:07 Labs: Laboratory Results - last 24 hr 10/22/21 10/22/21 10/23/21 16:16 19:49 07:33 POC Glucose 267 286 155 POC Glucose Comment Glu2: cleaned meter Glu2: cleaned meter 10/23/21 11:22 POC Glucose 232 POC Glucose Comment Glu2: cleaned meter Medications and Allergies Allergies and Active Meds: Allergies chlorpheniramine [From Tussionex] Allergy (Verified 10/18/21 11:48) Hives dextromethorphan Allergy (Verified 10/18/21 11:48) Unknown Reaction doxycycline Allergy (Verified 10/18/21 11:48) Chest Pain hydrocodone [From Tussionex] Allergy (Verified 10/18/21 11:48) Hives levofloxacin Allergy (Verified 10/18/21 11:48) Chest Pain phenylephrine Allergy (Verified 10/18/21 11:48) Unknown Reaction guaifenesin Adverse Reaction (Verified 10/18/21 11:48) Itching Active Medications Generic Name Dose Route Start Last Admin Trade Name [place] PRN Reason Stop Dose Admin Acetaminophen 500 mg 10/21/21 17:51 Acetaminophen 500 Mg Tablet PO 10/21/22 17:50 Q4H PRN Pain Al Hydrox/Mg Hydrox/Simethicone 30 ml 10/21/21 17:51 Mag Hydrox/Al Hydrox/Simeth 30 Ml Udc PO 10/21/22 17:50 Q4H PRN Indigestion Albuterol 2 puff 10/21/21 15:50 Albuterol Hfa 60 Puff/8 Gram Inhaler INHALATION 10/21/22 15:49 DAILY PRN asthma Allopurinol 100 mg 10/21/21 22:00 10/22/21 20:27 Allopurinol 100 Mg Tablet PO 10/21/22 21:59 100 mg QHS CB Administration Atorvastatin Calcium 80 mg 10/22/21 09:00 10/23/21 09:07 Atorvastatin 80 Mg Tablet PO 10/22/22 08:59 80 mg QAM CB Administration Bisacodyl 10 mg 10/21/21 17:51 Bisacodyl 10 Mg Supp.Rect MI 10/21/22 17:50 DAILY PRN Constipation Bumetanide 2 mg 10/21/21 21:00 10/23/21 09:07 Bumetanide 2 Mg Tablet PO 10/21/22 20:59 2 mg BID CB Administration Carvedilol 6.25 mg 10/21/21 21:00 10/23/21 09:07 Carvedilol 6.25 Mg Tablet PO 10/21/22 20:59 6.25 mg BID CB Administration Docusate Sodium 100 mg 10/21/21 17:51 Docusate 100 Mg Capsule PO 10/21/22 17:50 BID PRN Constipation Docusate Sodium 283 mg 10/21/21 17:51 Docusate Enema 283 Mg/5 Ml Enema MI 10/21/22 17:50 DAILY PRN Constipation Insulin Aspart 0 units 10/21/21 17:00 10/23/21 09:05 Insulin Aspart 300 Units/3 Ml Insuln.Pen SUBCUT 10/21/22 16:59 1 units TID.WM.HS CB Administration Protocol Insulin Aspart 0 units 10/21/21 17:00 10/23/21 09:06 Insulin Aspart 300 Units/3 Ml Insuln.Pen SUBCUT 10/21/22 16:59 4 units TID.WITH.MEALS.[employer] Administration Protocol Insulin Detemir 40 units 10/21/21 22:00 10/22/21 20:27 Insulin Detemir 300 Units/3 Ml Insuln.Pen SUBCUT 10/21/22 21:59 40 units QHS CB Administration Lactulose 30 gm 10/21/21 17:51 Lactulose 20 Gm/30 Ml Udc PO 10/21/22 17:50 DAILY PRN Constipation Losartan Potassium 25 mg 10/22/21 09:00 10/23/21 09:07 Losartan 25 Mg Tablet PO 10/22/22 08:59 25 mg QAM CB Administration Magnesium Oxide 400 mg 10/22/21 09:00 10/23/21 09:07 Magnesium Oxide 400 Mg Tablet PO 10/22/22 08:59 400 mg QAM CB Administration Multivitamins 1 tab 10/22/21 09:00 10/23/21 09:07 Multivitamin 1 Tab Tablet PO 10/22/22 08:59 1 tab QAM CB Administration Nitroglycerin 0.4 mg 10/21/21 15:50 Nitroglycerin 0.4 Mg Tab.Subl SUBLINGUAL 10/21/22 15:49 DAILY PRN Chest Pain Rivaroxaban 10 mg 10/22/21 09:00 10/23/21 09:07 Rivaroxaban 10 Mg Tablet PO 10/22/22 08:59 10 mg DAILY CB Administration Fluticasone/Salmeterol 1 puff 10/21/21 21:00 10/23/21 04:59 Fluticasone/Salmeterol 232-14 Mcg 60 Puff Inhaler INHALATION 10/21/22 20:59 1 puff BID CB Administration Sennosides 2 tab 10/22/21 12:00 Sennosides 8.6 Mg Tablet PO 10/22/22 11:59 DAILY@12 PRN If no BM in 2 days Sodium Chloride 0 ml 10/21/21 17:51 Sodium Chloride 0.9 % 10 Ml Syringe IV-PUSH 10/21/22 17:50 PRN PRN Flush Spironolactone 25 mg 10/22/21 09:00 10/23/21 09:07 Spironolactone 25 Mg Tablet PO 10/22/22 08:59 25 mg QAM CB Administration Vitamin D 250 mcg 10/21/21 21:00 10/23/21 09:07 Cholecalciferol 125 Mcg (5,000 Units) Tablet PO 10/21/22 20:59 250 mcg BID CB Administration Assessment/Plan <Chante Narayan, TECHNOLOGY AND ENGINEERING TEACHER - Last Filed: 10/23/21 11:57> Assessment/Plan (1) Below knee amputation: Assessment/Problem Details: S/p planned right BKA on 10/17/2021. Incision without signs of postoperative infection. Pain is well controlled, denies any phantom pains. Code(s): S88.119A - Complete traumatic amputation at level between knee and ankle, unspecified lower leg, initial encounter Status: Acute (2) Type 2 diabetes mellitus: Assessment/Problem Details: On sliding scale and basal insulin coverage at baseline. Insulins were adjustedpostoperatively due to elevated blood glucose. Continue monitoring FSBS's closely Code(s): E11.9 - Type 2 diabetes mellitus without complications Status: Acute (3) Impaired mobility and activities of daily living: Assessment/Problem Details: PT/OT to evaluate and treat. Code(s): Z74.09 - Other reduced mobility; Z78.9 - Other specified health status Status: Acute (4) Kidney failure: Assessment/Problem Details: Most recent and creatinine is 1.32, BUN is 32. Unsure of patient's baseline. Can consult nephrology if needed. Code(s): N19 - Unspecified kidney failure Status: Acute (5) Hypertension: Assessment/Problem Details: Stable, continue current med treatment. Code(s): I10 - Essential (primary) hypertension Status: Acute (6) Hyperlipidemia: Code(s): E78.5 - Hyperlipidemia, unspecified Status: Acute Plan 66-year-old male s/p planned right BKA due to chronic osteomyelitis and infection of the foot. No significant postoperative complications. * He is doing reasonably well and is asking about discharge home. Can arrange an FI with on Sunday or Sunday this week. * Contact Dr. Brandt's office to either reschedule the appointment or have him see the patient while in rehab. * His vital signs are within normal limits, afebrile and denies chills. Patient education Pressure ulcer prophylaxis; encourage mobilization, frequent postural changes, pressure-relief techniques DVT prophylaxis: Continue home Xarelto Encourage deep breathing exercise incentive spirometry. Monitor bladder. Toileting schedule. Continue current bladder management, with scans as needed and CIC if needed. Start bowel care program every day to obtain continence, prevent ileus. Maintain fall precautions: Place call light within reach. Gait and balance retraining Functional training and self-care and home management, including activities of daily living and instrumental activities of daily living Provision of the necessary gait aids and functional adaptive equipment to enhance the patient's a functional nondenominational Ensure adequate nutrition and hydration Sleep: Denies any issues Pain: Denies any issues Discharge planning: Home with in 7 to 10 days. I spent greater than 15 minutes for services, including [id number] encounter with the patient, discussion of the case, plan of care, and exam; and [id number] activities, such as reviewing pertinent domestic travel consultant documentation, recent therapy notes, laboratory and radiology studies, and discussion of case with care team including physician, nursing, case management coordinator, and therapists. More than 50 % of time was spent on patient/family counseling or coordination ofcare. <Ghanshyam Kaye MD - Last Filed: 10/25/21 10:19> Assessment/Plan (1) Below knee amputation: (2) Type 2 diabetes mellitus: (3) Impaired mobility and activities of daily living: (4) Kidney failure: (5) Hypertension: (6) Hyperlipidemia: Plan: I reviewed the history and the relevant portions of the chart, including currentorders, allied health and domestic travel consultant notes, labs/imaging and plan of care as above. Documented By: Chante Narayan APRN 10/23/21 1 150 Signed By: <Electronically signed by KRUNAL Narayan> 10/23/21 1157 <Electronically signed by Ghanshyam Kaye MD> 10/25/21 1021 [facility] Work Phone: 1(326) 567-671807-26-2022 History and physical note Author Ghanshyam Kaye [facility] October 25, 2021 9:36am Note Date/Time October 22, 2021 9:59 am [facility] [address] [place] [address] Physiatry (Rehab) H&P Signed Patient: Anai Goodman MR#: [id number] : 1955 Acct:[id number] Age/Sex: 66 / M Adm Date: 2 Loc: Room: 5Q1246-8 Type : ADM IN Attending Dr: Ghanshyam Kaye MD Copies to: KRUNAL Mendez DO Joseph Riley, MD~ <Chante Narayan APRN - Last Filed: 10/22/21 10:24> Date of Service: 10/22/2021 HPI <Chante Narayan APRN - Last Filed: 10/22/21 10:24> The patient was seen and examined on: 10/21/21 History of Present Illness: Mr. Goodman is a 66 year old male who is admitted to [facility]hab for strengthening s/p planned right BKA. Patient's past medical history significant for DM type II, CAD, MT, s/p pacemaker/defibrillator insertion, CKD, osteomyelitis of the right tibia. He reports a history of traumatic injury to the right foot several years ago when he dropped several pallets onto his foot at work. He has had numerous surgeries with hardware placement in attempt to heal the fractures. He has beenreceiving chronic steroids and p.o. antibiotics. Unfortunately, all of them were unsuccessful and for the past 12 months he has been treated for osteomyelitis and chronic Charcot foot infection and was nonambulatory. The decision was made to perform right transtibial amputation. He underwent the above procedure performed by Dr. Perez on 10/17/2021. He is to remain nonweightbearing to the operative extremity until wound healing is complete. Postoperatively, patient's blood glucose has been elevated. Basal insulin dose was adjusted, now improving. Otherwise, unremarkable postop course. On exam, patient denies any significant pain or discomfort, states does not require pain medications at this time. Denies phantom pain in the stump. Operative site is unremarkable without signs of infection. He reports no GI or issues. His appetite is improving and he is drinking plenty of fluids. He is working with therapy and is able to ambulate short distances with a walker while remaining NWB to the right lower extremity. Preoperatively, he was independent with ADLs and a IADLs, used a knee scooter for household and community mobility. He lives with his in their one-storycondo with one-step to enter. PMFSH <Chante Narayan APRN - Last Filed: 10/22/21 10:24> Vaccinated for COVID-19?: Yes Medical History (Updated 10/22/21 @ 16:57 by ABDIRASHID Villatoro) Amputated toe of left foot x5 Arthritis Asthma CKD (chronic kidney disease), stage III Coronary artery disease Diabetes mellitus, type 2 Gout Hyperlipidemia Hypertension Kidney failure Neuropathy GRACY on CPAP Skin cancer Surgical History AICD (automatic cardioverter/defibrillator) present History of cardiac catheterization stents x5 History of cholecystectomy History of foot surgery History of orthopedic surgery ankle fusion History of orthopedic surgery right knee Family History Mother Diabetes mellitus type 1 Father Heart disease Social History Smoking Status: Never smoker Substance Use Type: None Review of Systems <Chante Narayan APRN - Last Filed: 10/22/21 10:24> Constitutional Constitutional: Denies chills, Denies fatigue, Denies fever(s) and Denies weakness Eyes Eyes: Reports system reviewed and no additional complaints, except as documented ENT Ears, Nose, Mouth, and Throat: Reports system reviewed and no additional complaints, except as documented Cardiovascular Cardiovascular: Reports system reviewed and no additional complaints, except as documented Respiratory Respiratory: Reports system reviewed and no additional complaints, except as documented Gastrointestinal Gastrointestinal: Reports system reviewed and no additional complaints, except as documented Genitourinary Genitourinary: Reports system reviewed and no additional complaints, except as documented Musculoskeletal Musculoskeletal: Reports system reviewed and no additional complaints, except asdocumented Integumentary/Breasts Skin/Breast: Reports system reviewed and no additional complaints, except as documented Neurologic Neurologic: Reports system reviewed and no additional complaints, except as documented Psychiatric Psychiatric: Reports system reviewed and no additional complaints, except as documented Endocrine Endocrine: Reports system reviewed and no additional complaints, except as documented Allergic/Immunologic Allergic/Immunologic: Reports system reviewed and no additional complaints, except as documented Meds <Chante Narayan APRN - Last Filed: 10/22/21 10:24> Medications and Allergies Allergies chlorpheniramine [From Tussionex] Allergy (Verified 10/18/21 11:48) Hives dextromethorphan Allergy (Verified 10/18/21 11:48) Unknown Reaction doxycycline Allergy (Verified 10/18/21 11:48) Chest Pain hydrocodone [From Tussionex] Allergy (Verified 10/18/21 11:48) Hives levofloxacin Allergy (Verified 10/18/21 11:48) Chest Pain phenylephrine Allergy (Verified 10/18/21 11:48) Unknown Reaction guaifenesin Adverse Reaction (Verified 10/18/21 11:48) Itching Home and Active Meds: Home Medications albuterol sulfate 90 mcg/actuation aerosol inhaler 2 inh inhalation DAILY PRN asthma 10/14/21 [History Confirmed 10/21/21] allopurinol 100 mg tablet 100 mg PO QHS 10/14/21 [History Confirmed 10/21/21] apixaban 5 mg tablet (Eliquis) 5 mg PO BID 10/14/21 [History Confirmed 10/21/21] ascorbic acid (vitamin C) 500 mg tablet (Vitamin C) 500 mg PO DAILY 10/14/21 [History Confirmed 10/21/21] aspirin 81 mg tablet,delayed release 81 mg PO QHS 10/14/21 [History Confirmed 10/21/21] atorvastatin 80 mg tablet 80 mg PO QAM 10/14/21 [History Confirmed 10/21/21] bumetanide 2 mg tablet 2 mg PO BID 10/14/21 [History Confirmed 10/21/21] carvedilol 6.25 mg tablet 6.25 mg PO BID 10/14/21 [History Confirmed 10/21/21] cephalexin 500 mg capsule 500 mg PO QHS 10/14/21 [History Confirmed 10/21/21] cholecalciferol (vitamin D3) 250 mcg (10,000 unit) capsule 250 mcg PO BID 10/14/21 [History Confirmed 10/21/21] coenzyme Q10 200 mg capsule 200 mg PO QAM 10/14/21 [History Confirmed 10/21/21] fluticasone furoate 200 mcg-vilanterol 25 mcg/dose inhalation powder (Breo Ellipta) 1 inh inhalation QAM 10/14/21 [History Confirmed 10/21/21] insulin aspart U-100 100 unit/mL subcutaneous solution See Protocol subcut QID 10/14/21 [History Confirmed 10/21/21] insulin glargine 100 unit/mL subcutaneous solution (Lantus U-100 Insulin) 40 unit subcut QHS 10/14/21 [History Confirmed 10/21/21] losartan 25 mg tablet 25 mg PO QAM 10/14/21 [History Confirmed 10/21/21] magnesium oxide 400 mg (241.3 mg magnesium) tablet 400 mg PO QAM 10/14/21 [History Confirmed 10/21/21] multivitamin 1 tab PO QAM 10/14/21 [History Confirmed 10/21/21] nitroglycerin 0.4 mg sublingual tablet 0.4 mg sublingual DAILY PRN Chest Pain 10/14/21 [History Confirmed 10/21/21] prednisone 5 mg tablet 5 mg PO Q2D 10/14/21 [History Confirmed 10/21/21] spironolactone 25 mg tablet 25 mg PO QAM 10/14/21 [History Confirmed 10/21/21] rivaroxaban 10 mg tablet (Xarelto) 10 mg PO DAILY 10/18/21 [History Confirmed 10/21/21] Active Medications Acetaminophen (Acetaminophen 500 Mg Tablet) 500 mg PO Q4H PRN PRN Reason: Pain Stop: 10/21/22 17:50 Al Hydrox/Mg Hydrox/Simethicone (Mag Hydrox/Al Hydrox/Simeth 30 Ml Udc) 30 ml PO Q4H PRN PRN Reason: Indigestion Stop: 10/21/22 17:50 Albuterol (Albuterol Hfa 60 Puff/8 Gram Inhaler) 2 puff INHALATION DAILY PRN PRN Reason: asthma Stop: 10/21/22 15:49 Allopurinol (Allopurinol 100 Mg Tablet) 100 mg PO QHS CB Stop: 10/21/22 21:59 Last Admin: 10/21/21 22:12 Dose: 100 mg Atorvastatin Calcium (Atorvastatin 80 Mg Tablet) 80 mg PO QAM CB Stop: 10/22/22 08:59 Last Admin: 10/22/21 08:05 Dose: 80 mg Bisacodyl (Bisacodyl 10 Mg Supp.Rect) 10 mg MI DAILY PRN PRN Reason: Constipation Stop: 10/21/22 17:50 Bumetanide (Bumetanide 2 Mg Tablet) 2 mg PO BID [facility] Stop: 10/21/22 20:59 Last Admin: 10/22/21 08:02 Dose: 2 mg Carvedilol (Carvedilol 6.25 Mg Tablet) 6.25 mg PO BID [facility] Stop: 10/21/22 20:59 Last Admin: 10/22/21 08:02 Dose: 6.25 mg Docusate Sodium (Docusate 100 Mg Capsule) 100 mg PO BID PRN PRN Reason: Constipation Stop: 10/21/22 17:50 Docusate Sodium (Docusate Enema 283 Mg/5 Ml Enema) 283 mg MI DAILY PRN PRN Reason: Constipation Stop: 10/21/22 17:50 Insulin Aspart (Insulin Aspart 300 Units/3 Ml Insuln.Pen) 0 units SUBCUT TID.[facility]; Protocol Stop: 10/21/22 16:59 Last Admin: 10/22/21 08:01 Dose: 1 units Insulin Aspart (Insulin Aspart 300 Units/3 Ml Insuln.Pen) 0 units SUBCUT TID.WITH.MEALS.[facility]; Protocol Stop: 10/21/22 16:59 Last Admin: 10/22/21 08:01 Dose: 4 units Insulin Detemir (Insulin Detemir 300 Units/3 Ml Insuln.Pen) 40 units SUBCUT [facility] Stop: 10/21/22 21:59 Last Admin: 10/21/21 22:02 Dose: 40 units Lactulose (Lactulose 20 Gm/30 Ml Udc) 30 gm PO DAILY PRN PRN Reason: Constipation Stop: 10/21/22 17:50 Losartan Potassium (Losartan 25 Mg Tablet) [facility] Stop: 10/22/22 08:59 Last Admin: 10/22/21 08:05 Dose: 25 mg Magnesium Oxide (Magnesium Oxide 400 Mg Tablet) 400 mg PO QAM [facility] Stop: 10/22/22 08:59 Last Admin: 10/22/21 08:05 Dose: 400 mg Multivitamins (Multivitamin 1 Tab Tablet) 1 tab PO QAM [facility] Stop: 10/22/22 08:59 Last Admin: 10/22/21 08:05 Dose: 1 tab Nitroglycerin (Nitroglycerin 0.4 Mg Tab.Subl) 0.4 mg SUBLINGUAL DAILY PRN PRN Reason: Chest Pain Stop: 10/21/22 15:49 Rivaroxaban (Rivaroxaban 10 Mg Tablet) 10 mg PO DAILY [facility] Stop: 10/22/22 08:59 Last Admin: 10/22/21 08:06 Dose: 10 mg Fluticasone/Salmeterol (Fluticasone/Salmeterol 232-14 Mcg 60 Puff Inhaler) 1 puff INHALATION BID [facility] Stop: 10/21/22 20:59 Last Admin: 10/22/21 05:10 Dose: 1 puff Sennosides (Sennosides 8.6 Mg Tablet) 2 tab PO DAILY@12 PRN PRN Reason: If no BM in 2 days Stop: 10/22/22 11:59 Sodium Chloride (Sodium Chloride 0.9 % 10 Ml Syringe) 0 ml IV-PUSH PRN PRN PRN Reason: Flush Stop: 10/21/22 17:50 Spironolactone (Spironolactone 25 Mg Tablet) 25 mg PO QAM [facility] Stop: 10/22/22 08:59 Last Admin: 10/22/21 08:05 Dose: 25 mg Vitamin D (Cholecalciferol 125 Mcg (5,000 Units) Tablet) 250 mcg PO BID [facility] Stop: 10/21/22 20:59 Last Admin: 10/22/21 08:02 Dose: 250 mcg Exam <Chante Narayan APRN - Last Filed: 10/22/21 10:24> Physical Exam Vital Signs: Temp Pulse Resp BP Pulse Ox O2 Del Method FiO2 97.5 F L 76 18 130/76 98 CPAP 21 10/22/21 05:00 10/22/21 05:00 10/22/21 05:00 10/22/21 05:00 10/22/21 05:00 10/22/21 05:00 10/22/21 04:14 Const General: cooperative, comfortable, no acute distress, well developed and well groomed Nutritional Appearance: average body habitus Orientation: alert, awake and oriented x3 HEENT Head: normal to inspection, normocephalic, atraumatic and no cyanosis of lips/distal nose Ears: hearing grossly normal bilaterally Face and sinus: normal facial exam Eyes General: appearance normal, both eyes and all related structures Pupils: PERRL EOM: EOM intact bilaterally Neck Neck: full ROM, no lymphadenopathy, trachea midline, supple and nontender Chest Chest palpation & inspection: normal inspection of the chest Resp Effort & Inspection: normal respiratory effort, able to speak in complete sentences, symmetric chest movement, no audible wheezes and no cough Auscultation: clear to auscultation bilaterally Cardio Jugular venous pressure: no JVD Palpation: normal PMI Rate: regular rate Rhythm: regular rhythm Heart Sounds: S1 normal and S2 normal Other: Implanted AICD to the left chest GI Inspection: normal to inspection Palpation: soft, no hepatosplenomegaly and nontender Auscultation: normal bowel sounds General: deferred Musc Cervical Spine: normal cervical lordosis and cervical ROM normal Skin General: no rashes or lesions noted Other: Right BKA, dressing intact without drainage, no surrounding erythema/edema. Neuro General: patient alert, patient awake, patient oriented x3 and moves all extremities Cranial Nerves: CN's II-XII intact bilaterally Psych Appearance: grossly normal Mood: congruent mood Affect: normal affect Speech and Movement: speech and movement normal Attitude: cooperative Thought Process: normal Thought Content: normal Insight: insight good Judgment: judgment good Results <Chante Narayan APRN - Last Filed: 10/22/21 10:24> Labs Labs: Laboratory Results - last 24 hr 10/21/21 10/22/21 10/22/21 20:20 05:59 06:19 Corrected WBC 6.6 Uncorrected WBC Count 6.6 RBC 3.99 Hgb 11.8 L Hct 34.6 L MCV 86.7 MCH 29.5 MCHC 34.0 RDW 17.8 H Plt Count 148 L MPV 8.8 Neut % (Auto) 70.1 Lymph % (Auto) 10.0 [place] % (Auto) 14.8 Eos % (Auto) 4.5 Baso % (Auto) 0.6 Neut # (Auto) 4.6 Lymph # (Auto) 0.7 L [place] # (Auto) 1.0 H Eos # (Auto) 0.3 Baso # (Auto) 0.0 Nucleated RBC % (auto) 0.0 PHA Creatinine Clear Sodium Potassium Chloride Carbon Dioxide BUN Creatinine Est GFR ( Amer) Est GFR (Non-Af Amer) Glucose POC Glucose 314 175 POC Glucose Comment Glu2: cleaned meter Calcium Total Bilirubin AST ALT Alkaline Phosphatase Total Protein Albumin Globulin Albumin/Globulin Ratio Prealbumin 10/22/21 06:19 Corrected WBC Uncorrected WBC Count RBC Hgb Hct MCV MCH MCHC RDW Plt Count MPV Neut % (Auto) Lymph % (Auto) [place] % (Auto) Eos % (Auto) Baso % (Auto) Neut # (Auto) Lymph # (Auto) [place] # (Auto) Eos # (Auto) Baso # (Auto) Nucleated RBC % (auto) PHA Creatinine Clear 53.74 Sodium 137 Potassium 3.5 Chloride 100 Carbon Dioxide 29.2 BUN 32 H Creatinine 1.32 H Est GFR ( Amer) > 60 Est GFR (Non-Af Amer) 55 Glucose 179 H POC Glucose POC Glucose Comment Calcium 9.3 Total Bilirubin 1.0 AST 23 ALT 21 Alkaline Phosphatase 71 Total Protein 6.1 Albumin 3.1 L Globulin 3.0 Albumin/Globulin Ratio 1.0 Prealbumin 19.4 Additional Results Results Comment: I reviewed clinical lab tests, radiology reports and obtained and summated medical records and have ordered follow up lab tests and imaging studies as needed for rehabilitation care. Functional Status <Chante Narayan APRN - Last Filed: 10/22/21 10:24> Prior Level of Function Narrative: Previously independent. Used a knee scooter for household and community mobility for the past several months. Current Level of Function Narrative: Able to ambulate short distances with a wheeled walker while remaining NWB to RLE. Independent with bed mobility. <Ghanshyam Kaye MD - Last Filed: 10/25/21 09:36> Individualized Plan of Care Plan of Care: Individualized Overall Plan of Care: Admit Date/Time: October 21, 2021 Expected LOS: 14 days Expected Discharge Destination: Home Rehabilitation [facility]: .4 Primary Diagnosis: Right BKA Patient?s/Family?s anticipated outcomes/personal goals: To have patient become more independent and to return home. Medical/ Functional Prognosis: Good Anticipated Functional Outcomes/Goals and Interventions: -Therapy Functional Outcome/Goal: Mobility/Locomotion: Patient likely to be modified independent with ambulation with assistive device. Anticipated interventions: Physician management, PT, Nutrition, Rehab Nursing - Therapy Functional Outcome/Goal: Self Care: Patient likely to be functionally modified independent for activities of daily living using assistive / adaptive equipment as needed. Anticipated interventions: Physician management, PT, OT, Nutrition, Rehab Nursing - Therapy Functional Outcome/Goal: Bladder/Bowel Management: Patient likely to be modified independent with bladder care and independent with bowel care. Anticipated interventions: Physician management, PT, OT, Nutrition, Rehab Nursing -Therapy Functional Outcome/Goal: Communication/Cognition: Patient will be able to communicate fully and be safe cognitively. Anticipated interventions: Physician management, PT, OT, Nutrition, Rehab Nursing -Therapy Functional Outcome/Goal: Patient will have adequate pain control less than 4/10 and understand how to take pain medications to achieve pain control. Anticipated interventions: Physician management, PT, OT, Nutrition, Rehab Nursing -Therapy Functional Outcome/Goal: Patient will improve endurance to be able to tolerate all daily self care activities and avocational activities. Anticipated interventions: Physician management, PT, OT, Nutrition, Rehab Nursing -Therapy Functional Outcome/Goal: Patient will understand and assimilate / integrate education regarding management of their medical conditions to maintainhealth and wellbeing. Anticipated interventions: Physician management, PT, OT, Nutrition, Rehab Nursing Required Therapy PT: 1.5 hour per day at least 5 days per week with additional therapy on as needed basis. Comments: PT to improve pt's strength, endurance, bed mobility, transfers (sit-stand), standing balance, gait quality on level surfaces and stairs, coordination and functional ADL skills. Will also work to improve pt's safety awareness during transfers and ambulation. OT: 1.5 hour per day at least 5 days per week with additional therapy on as needed basis. Comments: OT for basic ADL re-training (bathing, dressing, toileting, continence, grooming, feeding, transferring), to increase activity tolerance andfunctional mobility and to evaluate for adaptive and assistive devices. Will work to improve pt's endurance and educate pt on fall prevention and energy conservation techniques-pacing strategies and proper breathing techniques duringfunctional tasks. Other: Nutrition, Rehab nursing, Wound, P&O RATIONALE FOR IRF ADMISSION: Patient has both medical and functional complexities that require 24 hour daily monitoring and intervention from Business Continuity Analyst as well as other consulting physicians including internal medicine as well as 24 hour daily pollution control technician nursing - for medical safe / optimal management. Patient requires interdisciplinary therapy team rehabilitation care including OT, PT, SW, Psychology, Rehab Nursing, requires and can tolerate at least 3 hours of daily OT and PT therapy at least 5 days weekly. The following medical conditions significantly impact the rehabilitation process and are beingaddressed daily and can not be managed at home or in a lesser intense medical setting: Refer to above problem oriented plan of care Assessment/Plan <Chante Winternory, TECHNOLOGY AND ENGINEERING TEACHER - Last Filed: 10/22/21 10:24> (1) Below knee amputation: Assessment/Problem Details: S/p planned right BKA on 10/17/2021. Incision without signs of postoperative infection. Pain is well controlled, denies any phantom pains. Code(s): S88.119A - Complete traumatic amputation at level between knee and ankle, unspecified lower leg, initial encounter Status: Acute (2) Type 2 diabetes mellitus: Assessment/Problem Details: On sliding scale and basal insulin coverage at baseline. Insulins were adjustedpostoperatively due to elevated blood glucose. Continue monitoring FSBS's closely Code(s): E11.9 - Type 2 diabetes mellitus without complications Status: Acute (3) Impaired mobility and activities of daily living: Assessment/Problem Details: PT/OT to evaluate and treat. Code(s): Z74.09 - Other reduced mobility; Z78.9 - Other specified health status Status: Acute (4) Kidney failure: Assessment/Problem Details: Most recent and creatinine is 1.32, BUN is 32. Unsure of patient's baseline. Can consult nephrology if needed. Code(s): N19 - Unspecified kidney failure Status: Acute (5) Hypertension: Assessment/Problem Details: Stable, continue current med treatment. Code(s): I10 - Essential (primary) hypertension Status: Acute (6) Hyperlipidemia: Code(s): E78.5 - Hyperlipidemia, unspecified Status: Acute Plan 66-year-old male s/p planned right BKA due to chronic osteomyelitis and infection of the foot. No significant postoperative complications. * NWB to right lower extremity until surgical incision is healed, per Ortho orders. * Continue CPAP for obstructive sleep apnea * Continue home Xarelto * Continue monitoring blood glucose closely. Was elevated postoperatively and insulin was adjusted per hospitalist team. * Patient's pain is under control, he does not require any pain medications at this time. Continues to deny phantom pains. * Monitor surgical incision closely for any signs of infection. History of chronic Charcot foot infection and osteomyelitis to the affected extremity. Patient education Pressure ulcer prophylaxis; encourage mobilization, frequent postural changes, pressure-relief techniques DVT prophylaxis: Continue home Xarelto Encourage deep breathing exercise incentive spirometry. Monitor bladder. Toileting schedule. Continue current bladder management, with scans as needed and CIC if needed. Start bowel care program every day to obtain continence, prevent ileus. Maintain fall precautions: Place call light within reach. Gait and balance retraining Functional training and self-care and home management, including activities of daily living and instrumental activities of daily living Provision of the necessary gait aids and functional adaptive equipment to enhance the patient's a functional nondenominational Ensure adequate nutrition and hydration Sleep: Denies any issues Pain: Denies any issues Discharge planning: Home with in 7 to 10 days. I spent greater than 30 minutes for services, including [id number] encounter with the patient, discussion of the case, plan of care, and exam; and [id number] activities, such as reviewing pertinent domestic travel consultant documentation, recent therapy notes, laboratory and radiology studies, and discussion of case with care team including physician, nursing, case management coordinator, and therapists. More than 50 % of time was spent on patient/family counseling or coordination ofcare. <Ghanshyam Kaye MD - Last Filed: 10/25/21 09:36> (1) Below knee amputation: (2) Type 2 diabetes mellitus: (3) Impaired mobility and activities of daily living: (4) Kidney failure: (5) Hypertension: (6) Hyperlipidemia: Plan: I completed a substantive portion of this encounter, the medical decision makingportion of this note in its entirety, including Allied health note review, nursing note review, domestic travel consultant note review, discussion with nursing and case management, and more than 50% of my time was spent on counseling and coordination of care, time spent 50 minutes. The patient was seen and examined within 24 hours of rehabilitation admission. Patient was personally seen by me, Dr. Kaye, on the day of encounter, reviewed the history and the relevant portions of the chart, including current orders, allied health and domestic travel consultant notes, labs/imaging and performed rosado elements of exam and I formulated the plan of care and facilitated the medical decision making and confirmed the nurse practitioner note, as above Documented By: Chante Narayan APRN 10/22/21 0 949 Signed By: <Electronically signed by KRUNAL Narayan> 10/22/21 1024 <Electronically signed by Ghanshyam Kaye MD> 10/25/21 0936 [facility] Work Phone: [phone] Progress note Author Bronwyn Alegre [facility] October 23, 2021 3:11pm Note Date/Time October 23, 2021 3:11 pm [facility] [address] [place], [place] [id number] Hospitalist Progress Note Signed Patient: Anai Goodman MR#: [id number] : 1955 Acct:[id number] Age/Sex: 66 / M Adm Date: 2 Loc: Room: 8I2518-5 Type : ADM IN Attending Dr: Ghanshyam Kaye MD Copies to: ~ Date of Service: 10/23/2021 Subjective Subjective Narrative: 66-year-old male past medical history significant for hypertension, hyperlipidemia, CAD, AICD, GRACY on CPAP, DM, PVD CKD 3. Patient initially presented to the hospital electively October 17 for planned right transtibial below-knee amputation and right fibular osteotomy. History significant for traumatic injury to right lower extremity with ongoing complications and infection, decision made to perform amputation. Postoperative course uncomplicated other than some elevations of glucose 2/2 holding medications preoperatively, improved during stay. He was seen by therapy services and felt would benefit from further rehab before home-going, subsequently transferred to the acute inpatient rehab unit October 21. Hospitalist team placed on consultationfor medical comanagement of chronic conditions including diabetes and hypertension. Patient seen and examined. He is pleasant and offers no complaints. Essentially no pain at stump site. Denies chest pain or palpitations. No cough, dyspnea, or pain with inspiration. No abdominal pain or indigestion, constipation or diarrhea, nausea or vomiting. No dysuria or retention. No headache or dizziness. No fevers or chills. 10/23: Patient is doing well. He is lying in bed watching TV. His is at the bedside. No chest pain or palpitation. No abdominal pain, nausea, vomiting, diarrhea, dysuria hematuria Exam Physical Exam Vital Signs: Temp Pulse Resp BP Pulse Ox O2 Del Method FiO2 97.4 F L 79 18 130/75 97 Room Air 21 10/23/21 05:00 10/22/21 14:26 10/23/21 05:00 10/23/21 05:00 10/23/21 05:00 10/23/21 07:30 10/22/21 04:14 Narrative: Awake and oriented. No distress. Chest is clear, heart is regular. Abdomen issoft. Right below-knee amputation Objective Lab Results CBC & Chem 7: 10/22/21 06:19 10/22/21 06:19 Meds Allergies and Active Meds Allergies chlorpheniramine [From Tussionex] Allergy (Verified 10/18/21 11:48) Hives dextromethorphan Allergy (Verified 10/18/21 11:48) Unknown Reaction doxycycline Allergy (Verified 10/18/21 11:48) Chest Pain hydrocodone [From Tussionex] Allergy (Verified 10/18/21 11:48) Hives levofloxacin Allergy (Verified 10/18/21 11:48) Chest Pain phenylephrine Allergy (Verified 10/18/21 11:48) Unknown Reaction guaifenesin Adverse Reaction (Verified 10/18/21 11:48) Itching Active Meds: Active Medications Generic Name Dose Route Start Last Admin Trade Name Freq PRN Reason Stop Dose Admin Acetaminophen 500 mg 10/21/21 17:51 Acetaminophen 500 Mg Tablet PO 10/21/22 17:50 Q4H PRN Pain Al Hydrox/Mg Hydrox/Simethicone 30 ml 10/21/21 17:51 Mag Hydrox/Al Hydrox/Simeth 30 Ml Udc PO 10/21/22 17:50 Q4H PRN Indigestion Albuterol 2 puff 10/21/21 15:50 Albuterol Hfa 60 Puff/8 Gram Inhaler INHALATION 10/21/22 15:49 DAILY PRN asthma Allopurinol 100 mg 10/21/21 22:00 10/22/21 20:27 Allopurinol 100 Mg Tablet PO 10/21/22 21:59 100 mg QHS CB Administration Atorvastatin Calcium 80 mg 10/22/21 09:00 10/23/21 09:07 Atorvastatin 80 Mg Tablet PO 10/22/22 08:59 80 mg QAM CB Administration Bisacodyl 10 mg 10/21/21 17:51 Bisacodyl 10 Mg Supp.Rect MI 10/21/22 17:50 DAILY PRN Constipation Bumetanide 1 mg 10/23/21 21:00 Bumetanide 1 Mg Tablet PO 10/23/22 20:59 BID CB Carvedilol 6.25 mg 10/21/21 21:00 10/23/21 09:07 Carvedilol 6.25 Mg Tablet PO 10/21/22 20:59 6.25 mg BID CB Administration Docusate Sodium 100 mg 10/21/21 17:51 Docusate 100 Mg Capsule PO 10/21/22 17:50 BID PRN Constipation Docusate Sodium 283 mg 10/21/21 17:51 Docusate Enema 283 Mg/5 Ml Enema MI 10/21/22 17:50 DAILY PRN Constipation Insulin Aspart 0 units 10/21/21 17:00 10/23/21 13:13 Insulin Aspart 300 Units/3 Ml Insuln.Pen SUBCUT 10/21/22 16:59 2 units TID.WM.[employer] [facility] Administration Protocol Insulin Aspart 0 units 10/21/21 17:00 10/23/21 13:14 Insulin Aspart 300 Units/3 Ml Insuln.Pen SUBCUT 10/21/22 16:59 5 units TID.WITH.MEALS.[employer] Administration Protocol Insulin Detemir 40 units 10/21/21 22:00 10/22/21 20:27 Insulin Detemir 300 Units/3 Ml Insuln.Pen SUBCUT 10/21/22 21:59 40 units QHS CB Administration Lactulose 30 gm 10/21/21 17:51 Lactulose 20 Gm/30 Ml Udc PO 10/21/22 17:50 DAILY PRN Constipation Losartan Potassium 25 mg 10/22/21 09:00 10/23/21 09:07 Losartan 25 Mg Tablet PO 10/22/22 08:59 25 mg QAM [facility] Administration Magnesium Oxide 400 mg 10/22/21 09:00 10/23/21 09:07 Magnesium Oxide 400 Mg Tablet PO 10/22/22 08:59 400 mg QAM [facility] Administration Multivitamins 1 tab 10/22/21 09:00 10/23/21 09:07 Multivitamin 1 Tab Tablet PO 10/22/22 08:59 1 tab QAM [facility] Administration Nitroglycerin 0.4 mg 10/21/21 15:50 Nitroglycerin 0.4 Mg Tab.Subl SUBLINGUAL 10/21/22 15:49 DAILY PRN Chest Pain Rivaroxaban 10 mg 10/22/21 09:00 10/23/21 09:07 Rivaroxaban 10 Mg Tablet PO 10/22/22 08:59 10 mg DAILY CB Administration Fluticasone/Salmeterol 1 puff 10/21/21 21:00 10/23/21 04:59 Fluticasone/Salmeterol 232-14 Mcg 60 Puff Inhaler INHALATION 10/21/22 20:59 1 puff BID CB Administration Sennosides 2 tab 10/22/21 12:00 Sennosides 8.6 Mg Tablet PO 10/22/22 11:59 DAILY@12 PRN If no BM in 2 days Sodium Chloride 0 ml 10/21/21 17:51 Sodium Chloride 0.9 % 10 Ml Syringe IV-PUSH 10/21/22 17:50 PRN PRN Flush Spironolactone 25 mg 10/22/21 09:00 10/23/21 09:07 Spironolactone 25 Mg Tablet PO 10/22/22 08:59 25 mg QAM CB Administration Vitamin D 250 mcg 10/21/21 21:00 10/23/21 09:07 Cholecalciferol 125 Mcg (5,000 Units) Tablet PO 10/21/22 20:59 250 mcg BID CB Administration A&P - Hospitalist Assessment/Plan (1) Hypertension: (2) Hyperlipidemia: (3) Below knee amputation: (4) Type 2 diabetes mellitus: (5) GRACY on CPAP: (6) CKD (chronic kidney disease), stage III: Plan Right foot osteomyelitis s/p right transtibial below?knee amputation/right fibula osteotomy 10/17 -Further POC per PMR team for rehabilitative therapy postop, pain control and bowel regimen, DVT PPx rivaroxaban, surgical wound care -Please address any further questions concerns regarding postop status to orthopedic team. Patient was not on antibiotic after surgery. We will check with Dr. Perez to see if he would need to be on any. Dr. Perez is off this weekend. I will askednursing staff to check with him on Sunday Chronic conditions: 1.? HTN, HLD, CAD- atorvastatin, Bumetanide, Carvedilol, Losartan, Spironolactone 2.? GRACY on CPAP 3. D3TO-T4g 7.3, continue detemir, SSI 4. CKD 3?trend labs Thank you for consulting us to see this pt. I will be off service starting this evening. Case will be handled by one of my partners if needed. Pt is fairly stable at this time. We will follow pt on an as needed basis. Please call or alert hospitalist if pt develops any signs or symptoms that may require medical evaluation and or intervention. Please arrange for pt after discharge follow up appts with PCP and other specialists. I may or may not have addressed all of patient symptoms, abnormal labs and imaging during this hospitalization. Please ask patient to ask PCP and out patient providers to [facility] to follow up on illnesses, symptoms, abnormal findings that I have and have not addressed duringthis encounter and hospitalization in out patient setting. Documented By: Bronwyn Alegre MD 10/23/21 1509 Signed By: <Electronically signed by Bronwyn Alegre MD> 10/23/21 1516 [facility] Work Phone: [phone] Consult note Author Bronwyn Alegre [facility] October 23, 2021 7:04am Note Date/Time October 22, 2021 4:18 pm [facility] [address] [place] [address] Hospitalist Consult Note Signed Patient: Anai Goodman MR#: [id number] : 1955 Acct:[id number] Age/Sex: 66 / M Adm Date: 2 Loc: Room: [address] [place] [address] Type : ADM IN Attending Dr: Ghanshyam Kaye MD Copies to: DO Ghanshyam Rushing MD Lynn A Stackhouse, ANP-BC Bronwyn Alegre MD~ HPI DATE OF CONSULTATION: 10/22/21 REQUESTING PROVIDER: Ghanshyam Kaye Consult Narrative Reason for Consult: Diabetes, hypertension HPI: 66-year-old male past medical history significant for hypertension, hyperlipidemia, CAD, AICD, GRACY on CPAP, DM, PVD CKD 3. Patient initially presented to the hospital electively October 17 for planned right transtibial below-knee amputation and right fibular osteotomy. History significant for traumatic injury to right lower extremity with ongoing complications and infection, decision made to perform amputation. Postoperative course uncomplicated other than some elevations of glucose 2/2 holding medications preoperatively, improved during stay. He was seen by therapy services and felt would benefit from further rehab before home-going, subsequently transferred to the acute inpatient rehab unit October 21. Hospitalist team placed on consultationfor medical comanagement of chronic conditions including diabetes and hypertension. Patient seen and examined. He is pleasant and offers no complaints. Essentially no pain at stump site. Denies chest pain or palpitations. No cough, dyspnea, or pain with inspiration. No abdominal pain or indigestion, constipation or diarrhea, nausea or vomiting. No dysuria or retention. No headache or dizziness. No fevers or chills. Review of Systems Review of Systems All other systems reviewed & are negative unless noted below or in HPI [facility] Attestation Statement: The following information was validated with the patient. Vaccinated for COVID-19?: Yes Medical History (Updated 10/22/21 @ 16:57 by ABDIRASHID Villatoro) Amputated toe of left foot x5 Arthritis Asthma CKD (chronic kidney disease), stage III Coronary artery disease Diabetes mellitus, type 2 Gout Hyperlipidemia Hypertension Kidney failure Neuropathy GRACY on CPAP Skin cancer Surgical History AICD (automatic cardioverter/defibrillator) present History of cardiac catheterization stents x5 History of cholecystectomy History of foot surgery History of orthopedic surgery ankle fusion History of orthopedic surgery right knee Family History Mother Diabetes mellitus type 1 Father Heart disease Social History Smoking Status: Never smoker Substance Use Type: None Meds Medications and Allergies Allergies chlorpheniramine [From Tussionex] Allergy (Verified 10/18/21 11:48) Hives dextromethorphan Allergy (Verified 10/18/21 11:48) Unknown Reaction doxycycline Allergy (Verified 10/18/21 11:48) Chest Pain hydrocodone [From Tussionex] Allergy (Verified 10/18/21 11:48) Hives levofloxacin Allergy (Verified 10/18/21 11:48) Chest Pain phenylephrine Allergy (Verified 10/18/21 11:48) Unknown Reaction guaifenesin Adverse Reaction (Verified 10/18/21 11:48) Itching Home Medications albuterol sulfate 90 mcg/actuation aerosol inhaler 2 inh inhalation DAILY PRN asthma 10/14/21 [History Confirmed 10/21/21] allopurinol 100 mg tablet 100 mg PO QHS 10/14/21 [History Confirmed 10/21/21] apixaban 5 mg tablet (Eliquis) 5 mg PO BID 10/14/21 [History Confirmed 10/21/21] ascorbic acid (vitamin C) 500 mg tablet (Vitamin C) 500 mg PO DAILY 10/14/21 [History Confirmed 10/21/21] aspirin 81 mg tablet,delayed release 81 mg PO QHS 10/14/21 [History Confirmed 10/21/21] atorvastatin 80 mg tablet 80 mg PO QAM 10/14/21 [History Confirmed 10/21/21] bumetanide 2 mg tablet 2 mg PO BID 10/14/21 [History Confirmed 10/21/21] carvedilol 6.25 mg tablet 6.25 mg PO BID 10/14/21 [History Confirmed 10/21/21] cephalexin 500 mg capsule 500 mg PO QHS 10/14/21 [History Confirmed 10/21/21] cholecalciferol (vitamin D3) 250 mcg (10,000 unit) capsule 250 mcg PO BID 10/14/21 [History Confirmed 10/21/21] coenzyme Q10 200 mg capsule 200 mg PO QAM 10/14/21 [History Confirmed 10/21/21] fluticasone furoate 200 mcg-vilanterol 25 mcg/dose inhalation powder (Breo Ellipta) 1 inh inhalation QAM 10/14/21 [History Confirmed 10/21/21] insulin aspart U-100 100 unit/mL subcutaneous solution See Protocol subcut QID 10/14/21 [History Confirmed 10/21/21] insulin glargine 100 unit/mL subcutaneous solution (Lantus U-100 Insulin) 40 unit subcut QHS 10/14/21 [History Confirmed 10/21/21] losartan 25 mg tablet 25 mg PO QAM 10/14/21 [History Confirmed 10/21/21] magnesium oxide 400 mg (241.3 mg magnesium) tablet 400 mg PO QAM 10/14/21 [History Confirmed 10/21/21] multivitamin 1 tab PO QAM 10/14/21 [History Confirmed 10/21/21] nitroglycerin 0.4 mg sublingual tablet 0.4 mg sublingual DAILY PRN Chest Pain 10/14/21 [History Confirmed 10/21/21] prednisone 5 mg tablet 5 mg PO Q2D 10/14/21 [History Confirmed 10/21/21] spironolactone 25 mg tablet 25 mg PO QAM 10/14/21 [History Confirmed 10/21/21] rivaroxaban 10 mg tablet (Xarelto) 10 mg PO DAILY 10/18/21 [History Confirmed 10/21/21] Active Medications: Active Medications Generic Name Dose Route Start Last Admin Trade Name Freq PRN Reason Stop Dose Admin Acetaminophen 500 mg 10/21/21 17:51 Acetaminophen 500 Mg Tablet PO 10/21/22 17:50 Q4H PRN Pain Al Hydrox/Mg Hydrox/Simethicone 30 ml 10/21/21 17:51 Mag Hydrox/Al Hydrox/Simeth 30 Ml Udc PO 10/21/22 17:50 Q4H PRN Indigestion Albuterol 2 puff 10/21/21 15:50 Albuterol Hfa 60 Puff/8 Gram Inhaler INHALATION 10/21/22 15:49 DAILY PRN asthma Allopurinol 100 mg 10/21/21 22:00 10/21/21 22:12 Allopurinol 100 Mg Tablet PO 10/21/22 21:59 100 mg QHS CB Administration Atorvastatin Calcium 80 mg 10/22/21 09:00 10/22/21 08:05 Atorvastatin 80 Mg Tablet PO 10/22/22 08:59 80 mg QAM CB Administration Bisacodyl 10 mg 10/21/21 17:51 Bisacodyl 10 Mg Supp.Rect MI 10/21/22 17:50 DAILY PRN Constipation Bumetanide 2 mg 10/21/21 21:00 10/22/21 08:02 Bumetanide 2 Mg Tablet PO 10/21/22 20:59 2 mg BID CB Administration Carvedilol 6.25 mg 10/21/21 21:00 10/22/21 08:02 Carvedilol 6.25 Mg Tablet PO 10/21/22 20:59 6.25 mg BID CB Administration Docusate Sodium 100 mg 10/21/21 17:51 Docusate 100 Mg Capsule PO 10/21/22 17:50 BID PRN Constipation Docusate Sodium 283 mg 10/21/21 17:51 Docusate Enema 283 Mg/5 Ml Enema MI 10/21/22 17:50 DAILY PRN Constipation Insulin Aspart 0 units 10/21/21 17:00 10/22/21 12:45 Insulin Aspart 300 Units/3 Ml Insuln.Pen SUBCUT 10/21/22 16:59 2 units TID.WM. CB Administration Protocol Insulin Aspart 0 units 10/21/21 17:00 10/22/21 12:46 Insulin Aspart 300 Units/3 Ml Insuln.Pen SUBCUT 10/21/22 16:59 2 units TID.WITH.MEALS.[employer] Administration Protocol Insulin Detemir 40 units 10/21/21 22:00 10/21/21 22:02 Insulin Detemir 300 Units/3 Ml Insuln.Pen SUBCUT 10/21/22 21:59 40 units QHS CB Administration Lactulose 30 gm 10/21/21 17:51 Lactulose 20 Gm/30 Ml Udc PO 10/21/22 17:50 DAILY PRN Constipation Losartan Potassium 25 mg 10/22/21 09:00 10/22/21 08:05 Losartan 25 Mg Tablet PO 10/22/22 08:59 25 mg QAM CB Administration Magnesium Oxide 400 mg 10/22/21 09:00 10/22/21 08:05 Magnesium Oxide 400 Mg Tablet PO 10/22/22 08:59 400 mg QAM BC Administration Multivitamins 1 tab 10/22/21 09:00 10/22/21 08:05 Multivitamin 1 Tab Tablet PO 10/22/22 08:59 1 tab QAM CB Administration Nitroglycerin 0.4 mg 10/21/21 15:50 Nitroglycerin 0.4 Mg Tab.Subl SUBLINGUAL 10/21/22 15:49 DAILY PRN Chest Pain Rivaroxaban 10 mg 10/22/21 09:00 10/22/21 08:06 Rivaroxaban 10 Mg Tablet PO 10/22/22 08:59 10 mg DAILY CB Administration Fluticasone/Salmeterol 1 puff 10/21/21 21:00 10/22/21 05:10 Fluticasone/Salmeterol 232-14 Mcg 60 Puff Inhaler INHALATION 10/21/22 20:59 1 puff BID CB Administration Sennosides 2 tab 10/22/21 12:00 Sennosides 8.6 Mg Tablet PO 10/22/22 11:59 DAILY@12 PRN If no BM in 2 days Sodium Chloride 0 ml 10/21/21 17:51 Sodium Chloride 0.9 % 10 Ml Syringe IV-PUSH 10/21/22 17:50 PRN PRN Flush Spironolactone 25 mg 10/22/21 09:00 10/22/21 08:05 Spironolactone 25 Mg Tablet PO 10/22/22 08:59 25 mg QAM CB Administration Vitamin D 250 mcg 10/21/21 21:00 10/22/21 08:02 Cholecalciferol 125 Mcg (5,000 Units) Tablet PO 10/21/22 20:59 250 mcg BID CB Administration Exam Physical Exam Vital Signs: Temp Pulse Resp BP Pulse Ox O2 Del Method FiO2 98.4 F 79 12 124/66 98 Room Air 10/22/21 14:10/22/21 14:10/22/21 14:10/22/21 14:10/22/21 14:10/22/21 14:10/22/21 04:14 Narrative: CONST- alert, in chair, no acute distress HEAD- normocephalic and atraumatic EENT- sclera nonicteric and conjunctiva nonerythemic, moist oral mucosa, pharynxclear NECK- supple, no cervical lymphadenopathy CARDIAC- RRR no abnormal heart tones PULM- diminished without wheeze or rhonchi, RA, no accessory muscle use or coughnoted ABD- S/NT, NABS EXTREM- no edema LLE, left calf nontender SKIN- W/D, good turgor, right leg stump dressing in place MS- MAEx4 spontaneously with equal strength NEURO- A&Ox3, speech clear and tongue midline, equal facial symmetry PSYCH-mood and behavior appropriate Results Lab Results Labs: Laboratory Results - last 72 hr 10/22/21 11:25: POC Glucose 226 10/22/21 06:19: PHA Creatinine Clear 53.74, Sodium 137, Potassium 3.5, Chloride 100, Carbon Dioxide 29.2, BUN 32 H, Creatinine 1.32 H, Est GFR ( Amer) > 60, Est GFR (Non-Af Amer) 55, Glucose 179 H, Calcium 9.3, Total Bilirubin 1.0, AST 23, ALT 21, Alkaline Phosphatase 71, Total Protein 6.1, Albumin 3.1 L, Globulin 3.0, Albumin/Globulin Ratio 1.0, Prealbumin 19.4 10/22/21 06:19: Corrected WBC 6.6, Uncorrected WBC Count 6.6, RBC 3.99, Hgb 11.8L, Hct 34.6 L, MCV 86.7, MCH 29.5, MCHC 34.0, RDW 17.8 H, Plt Count 148 L, MPV 8.8, Neut % (Auto) 70.1, Lymph % (Auto) 10.0, [place] % (Auto) 14.8, Eos % (Auto) 4.5, Baso % (Auto) 0.6, Neut # (Auto) 4.6, Lymph # (Auto) 0.7 L, [place] # (Auto) 1.0 H, Eos # (Auto) 0.3, Baso # (Auto) 0.0, Nucleated RBC % (auto) 0.0 10/22/21 05:59: POC Glucose 175 10/21/21 20:20: POC Glucose 314, POC Glucose Comment Glu2: cleaned meter A&P - Hospitalist Assessment/Plan (1) Hypertension: (2) Hyperlipidemia: (3) Below knee amputation: (4) Type 2 diabetes mellitus: (5) GRACY on CPAP: (6) CKD (chronic kidney disease), stage III: Plan Right foot osteomyelitis s/p right transtibial below?knee amputation/right fibula osteotomy 10/17 -Further POC per PMR team for rehabilitative therapy postop, pain control and bowel regimen, DVT PPx rivaroxaban, surgical wound care -Please address any further questions concerns regarding postop status to orthopedic team. Chronic conditions: 1.? HTN, HLD, CAD- atorvastatin, Bumetanide, Carvedilol, Losartan, Spironolactone 2.? GRACY on CPAP 3. [id number] 7.3, continue detemir, SSI 4. CKD 3?trend labs Documented By: ABDIRASHID Olmedo 2 [id number] Signed By: <Electronically signed by ANP-SAUMYA Matias> 10/22/21 1658 <Electronically signed by Bronwyn Alegre MD> 10/23/21 0704 [facility] Work Phone: 1(842) 296-794307-22-2022 Progress note Author Rodriguez Loera [facility] October 21, 2021 8:37am Note Date/Time October 20, 2021 11:0 8am [facility] [address] [place] [address] Hospitalist Progress Note Signed Patient: Anai Goodman MR#: [id number] : 1955 Acct:[id number] Age/Sex: 66 / M Adm Date: 2 Loc: 4N Room: [address] [place] [address] Type : ADM IN Attending Dr: Reddy Brandt DO Copies to: ~ Date of Service: 10/20/2021 Subjective Subjective Narrative: Patient is seen and examined. He is up in the chair. Discharge planning has changed overnight and he has been accepted to rehab. He offers no complaints ofpain. Glucoses reviewed and improving Exam Physical Exam Vital Signs: Temp Pulse Resp BP Pulse Ox O2 Del Method O2 Flow Rate 98.0 F 72 12 152/78 H 96 Room Air 6 10/20/21 08:00 10/20/21 08:00 10/20/21 05:07 10/20/21 08:00 10/20/21 08:00 10/20/21 08:00 10/18/21 15:37 FiO2 21 10/20/21 05:07 Narrative: Alert, in chair, no distress at rest RRR no abnormal heart tones dimin without wheeze or rhonchi, RA S/NT, NABS no edema BLE, L calf nontender right leg stump dressing in place Objective Microbiology Results Microbiology 10/18/21 15:10 Leg,Right - Bone Aerobic Culture - Preliminary No Growth 1 Day 10/18/21 15:10 Leg,Right - Bone Anaerobic Culture - Preliminary No Anaerobes Isolated 1 Day 10/18/21 15:10 Leg,Right - Bone Gram Stain - Final Meds Allergies and Active Meds Allergies chlorpheniramine [From Tussionex] Allergy (Verified 10/18/21 11:48) Hives dextromethorphan Allergy (Verified 10/18/21 11:48) Unknown Reaction doxycycline Allergy (Verified 10/18/21 11:48) Chest Pain hydrocodone [From Tussionex] Allergy (Verified 10/18/21 11:48) Hives levofloxacin Allergy (Verified 10/18/21 11:48) Chest Pain phenylephrine Allergy (Verified 10/18/21 11:48) Unknown Reaction guaifenesin Adverse Reaction (Verified 10/18/21 11:48) Itching Active Meds: Active Medications Generic Name Dose Route Start Last Admin Trade Name Indioq PRN Reason Stop Dose Admin Acetaminophen 500 mg 10/18/21 17:24 10/20/21 09:43 Acetaminophen 500 Mg Tablet PO 10/21/21 17:23 Not Given Q6H CB Albuterol 2 puff 10/18/21 15:44 Albuterol Hfa 60 Puff/8 Gram Inhaler INHALATION 10/18/22 15:43 DAILY PRN asthma Ascorbic Acid 500 mg 10/18/21 08:00 10/20/21 09:42 Ascorbic Acid 500 Mg Tablet PO 10/18/22 07:59 500 mg BID.WITH.MEALS CB Administration Atorvastatin Calcium 80 mg 10/19/21 09:00 10/20/21 09:42 Atorvastatin 80 Mg Tablet PO 10/19/22 08:59 80 mg QAM CB Administration Bumetanide 2 mg 10/18/21 21:00 10/20/21 09:42 Bumetanide 2 Mg Tablet PO 10/18/22 20:59 2 mg BID CB Administration Carvedilol 6.25 mg 10/18/21 21:00 10/20/21 09:42 Carvedilol 6.25 Mg Tablet PO 10/18/22 20:59 6.25 mg BID CB Administration Cyclobenzaprine HCl 10 mg 10/18/21 07:25 10/19/21 17:52 Cyclobenzaprine 10 Mg Tablet PO 10/18/22 07:24 10 mg Q8HR PRN Administration Muscle Spasm Dextrose 0 gm 10/18/21 07:29 Dextrose 50% In Water 25 Gm/50 Ml Syringe IV-PUSH 10/18/22 07:28 PRN PRN Hypoglycemia Diphenhydramine HCl 25 mg 10/18/21 07:25 Diphenhydramine 25 Mg Capsule PO 10/18/22 07:24 QHS PRN Insomnia Diphenhydramine HCl 25 mg 10/18/21 07:25 Diphenhydramine 25 Mg Capsule PO 10/18/22 07:24 Q6H PRN Itching Docusate Sodium 100 mg 10/18/21 09:00 10/20/21 09:43 Docusate 100 Mg Capsule PO 10/18/22 08:59 100 mg BID CB Administration Glucose 0 gm 10/18/21 07:29 Dextrose 40% Gel 15 Gm Tube PO 10/18/22 07:28 PRN PRN Hypoglycemia Hydromorphone HCl 0.5 mg 10/18/21 07:25 Hydromorphone 0.5 Mg/0.5 Ml Syringe IV-PUSH Q2H PRN Pain Scale 7 - 10 Lactated Ringer's 1,000 mls @ 75 mls/hr 10/18/21 07:30 10/20/21 01:24 Lactated Ringers IV 10/18/22 07:29 Not Given .[id number] CB Insulin Aspart 0 units 10/18/21 08:00 10/20/21 09:47 Insulin Aspart 300 Units/3 Ml Insuln.Pen SUBCUT 10/18/22 07:59 2 units TID.WM.HS CB Administration Protocol Insulin Aspart 0 units 10/18/21 17:00 10/20/21 09:48 Insulin Aspart 300 Units/3 Ml Insuln.Pen SUBCUT 10/18/22 16:59 3 units TID.WM.HS CB Administration Insulin Detemir 40 units 10/18/21 22:00 10/19/21 21:59 Insulin Detemir 300 Units/3 Ml Insuln.Pen SUBCUT 10/18/22 21:59 40 units QHS CB Administration Losartan Potassium 25 mg 10/19/21 09:00 10/20/21 09:42 Losartan 25 Mg Tablet PO 10/19/22 08:59 25 mg QAM CB Administration Magnesium Oxide 400 mg 10/19/21 09:00 10/20/21 09:43 Magnesium Oxide 400 Mg Tablet PO 10/19/22 08:59 400 mg QAM CB Administration Multivitamins 1 tab 10/19/21 09:00 10/20/21 09:42 Multivitamin 1 Tab Tablet PO 10/19/22 08:59 1 tab QAM CB Administration Nitroglycerin 0.4 mg 10/18/21 15:44 Nitroglycerin 0.4 Mg Tab.Subl SUBLINGUAL 10/18/22 15:43 DAILY PRN Chest Pain Ondansetron HCl 4 mg 10/18/21 07:25 Ondansetron 4 Mg/2 Ml Vial IV-PUSH 10/18/22 07:24 Q6H PRN Nausea/Vomiting Oxycodone HCl 5 mg 10/18/21 07:25 10/19/21 21:58 Oxycodone Ir 5 Mg Tablet PO 5 mg Q4HR PRN Administration Pain Scale 1 - 5 Oxycodone HCl 10 mg 10/18/21 07:25 Oxycodone Ir 5 Mg Tablet PO Q4HR PRN Pain Scale 6 - 10 Rivaroxaban 10 mg 10/19/21 09:00 10/20/21 09:42 Rivaroxaban 10 Mg Tablet PO 10/19/22 08:59 10 mg DAILY CB Administration Fluticasone/Salmeterol 1 puff 10/19/21 09:00 10/20/21 08:42 Fluticasone/Salmeterol 232-14 Mcg 60 Puff Inhaler INHALATION 10/19/22 08:59 1 puff BID CB Administration Sodium Chloride 0 ml 10/18/21 14:00 10/20/21 06:21 Sodium Chloride 0.9 % 10 Ml Syringe IV-PUSH 10/18/22 13:59 Not Given QSHIFT CB Sodium Chloride 0 ml 10/18/21 11:24 Sodium Chloride 0.9 % 10 Ml Syringe IV-PUSH 10/18/22 11:23 PRN PRN Flush Sodium Chloride 0 ml 10/18/21 11:24 Sodium Chloride 0.9 % 10 Ml Syringe IV-PUSH 10/18/22 11:23 PRN PRN Flush Sodium Chloride 10 ml 10/18/21 12:06 Sodium Chloride 0.9 % 10 Ml Vial.Pf INJECTION 10/18/22 12:05 PRN PRN Promethazine Dilution Spironolactone 25 mg 10/19/21 09:00 10/20/21 09:42 Spironolactone 25 Mg Tablet PO 10/19/22 08:59 25 mg QAM CB Administration Tramadol HCl 50 mg 10/18/21 07:25 Tramadol 50 Mg Tablet PO 04/16/22 07:24 Q4H PRN Pain Scale 1 - 5 Vitamin D 250 mcg 10/18/21 21:00 10/20/21 09:42 Cholecalciferol 125 Mcg (5,000 Units) Tablet PO 10/18/22 20:59 250 mcg BID CB Administration A&P - Hospitalist Assessment/Plan (1) Type 2 diabetes mellitus: Plan Type 2 diabetes mellitus with postop hyperglycemia -Lantus, SSI ?7.3 A1c 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 Chronic conditions: 1. HTN, HLD, CAD- atorvastatin, Bumetanide, Carvedilol, Losartan, Spironolactone 2. GRACY on CPAP Documented By: ABDIRASHID Olmedo 2 [id number] Signed By: <Electronically signed by SATURNINO-SAUMYA Matias> 10/20/21 1342 <Electronically signed by Rodriguez Loera MD> 10/21/21 0837 [facility] Work Phone: [phone]) 613-345307-21-2022 Progress note Author Rodriguez Loera [facility] October 20, 2021 8:45am Note Date/Time October 19, 2021 11:2 8am [facility] [address] [place] [address] Hospitalist Progress Note Signed Patient: Anai Goodman MR#: [id number] : 1955 Acct:[id number] Age/Sex: 66 / M Adm Date: 2 Loc: 4 Room: 7M2127-9 Type : ADM IN Attending Dr: Reddy Brandt DO Copies to: ~ Date of Service: 10/19/2021 Subjective Subjective Narrative: Patient seen and examined. Feeling well, no pain at this time. Poor sleep overnight just from not being home. Good intake. No concerns, Exam Physical Exam Vital Signs: Temp Pulse Resp BP Pulse Ox O2 Del Method O2 Flow Rate 97.7 F 69 16 154/86 H 96 Room Air 6 10/19/21 08:00 10/19/21 08:00 10/19/21 08:00 10/19/21 08:00 10/19/21 08:00 10/19/21 08:24 10/18/21 15:37 FiO2 21 10/18/21 23:03 Narrative: Alert, in bed, no distress at rest RRR no abnormal heart tones dimin without wheeze or rhonchi, RA S/NT, NABS no edema BLE, L calf nontender right leg stump dressing in place Meds Allergies and Active Meds Allergies chlorpheniramine [From Tussionex] Allergy (Verified 10/18/21 11:48) Hives dextromethorphan Allergy (Verified 10/18/21 11:48) Unknown Reaction doxycycline Allergy (Verified 10/18/21 11:48) Chest Pain hydrocodone [From Tussionex] Allergy (Verified 10/18/21 11:48) Hives levofloxacin Allergy (Verified 10/18/21 11:48) Chest Pain phenylephrine Allergy (Verified 10/18/21 11:48) Unknown Reaction guaifenesin Adverse Reaction (Verified 10/18/21 11:48) Itching Active Meds: Active Medications Generic Name Dose Route Start Last Admin Trade Name Freq PRN Reason Stop Dose Admin Acetaminophen 500 mg 10/18/21 17:24 10/19/21 08:49 Acetaminophen 500 Mg Tablet PO 10/21/21 17:23 500 mg Q6H CB Administration Albuterol 2 puff 10/18/21 15:44 Albuterol Hfa 60 Puff/8 Gram Inhaler INHALATION 10/18/22 15:43 DAILY PRN asthma Ascorbic Acid 500 mg 10/18/21 08:00 10/19/21 10:02 Ascorbic Acid 500 Mg Tablet PO 10/18/22 07:59 500 mg BID.WITH.MEALS CB Administration Atorvastatin Calcium 80 mg 10/19/21 09:00 10/19/21 10:01 Atorvastatin 80 Mg Tablet PO 10/19/22 08:59 80 mg QAM CB Administration Bumetanide 2 mg 10/18/21 21:00 10/19/21 10:01 Bumetanide 2 Mg Tablet PO 10/18/22 20:59 2 mg BID CB Administration Carvedilol 6.25 mg 10/18/21 21:00 10/19/21 10:02 Carvedilol 6.25 Mg Tablet PO 10/18/22 20:59 6.25 mg BID CB Administration Cyclobenzaprine HCl 10 mg 10/18/21 07:25 Cyclobenzaprine 10 Mg Tablet PO 10/18/22 07:24 Q8HR PRN Muscle Spasm Dextrose 0 gm 10/18/21 07:29 Dextrose 50% In Water 25 Gm/50 Ml Syringe IV-PUSH 10/18/22 07:28 PRN PRN Hypoglycemia Diphenhydramine HCl 25 mg 10/18/21 07:25 Diphenhydramine 25 Mg Capsule PO 10/18/22 07:24 QHS PRN Insomnia Diphenhydramine HCl 25 mg 10/18/21 07:25 Diphenhydramine 25 Mg Capsule PO 10/18/22 07:24 Q6H PRN Itching Docusate Sodium 100 mg 10/18/21 09:00 10/19/21 10:02 Docusate 100 Mg Capsule PO 10/18/22 08:59 100 mg BID CB Administration Glucose 0 gm 10/18/21 07:29 Dextrose 40% Gel 15 Gm Tube PO 10/18/22 07:28 PRN PRN Hypoglycemia Hydromorphone HCl 0.5 mg 10/18/21 07:25 Hydromorphone 0.5 Mg/0.5 Ml Syringe IV-PUSH Q2H PRN Pain Scale 7 - 10 Lactated Ringer's 1,000 mls @ 75 mls/hr 10/18/21 07:30 10/18/21 17:18 Lactated Ringers IV 10/18/22 07:29 75 mls/hr .[id number] CB Administration Insulin Aspart 0 units 10/18/21 08:00 10/19/21 10:06 Insulin Aspart 300 Units/3 Ml Insuln.Pen SUBCUT 10/18/22 07:59 3 units TID.WM. CB Administration Protocol Insulin Aspart 0 units 10/18/21 17:00 10/19/21 10:06 Insulin Aspart 300 Units/3 Ml Insuln.Pen SUBCUT 10/18/22 16:59 2 units TID.WM.HS CB Administration Insulin Detemir 40 units 10/18/21 22:00 10/18/21 21:39 Insulin Detemir 300 Units/3 Ml Insuln.Pen SUBCUT 10/18/22 21:59 40 units QHS CB Administration Losartan Potassium 25 mg 10/19/21 09:00 10/19/21 10:02 Losartan 25 Mg Tablet PO 10/19/22 08:59 25 mg QAM CB Administration Magnesium Oxide 400 mg 10/19/21 09:00 10/19/21 10:02 Magnesium Oxide 400 Mg Tablet PO 10/19/22 08:59 400 mg QAM CB Administration Multivitamins 1 tab 10/19/21 09:00 10/19/21 10:02 Multivitamin 1 Tab Tablet PO 10/19/22 08:59 1 tab QAM CB Administration Nitroglycerin 0.4 mg 10/18/21 15:44 Nitroglycerin 0.4 Mg Tab.Subl SUBLINGUAL 10/18/22 15:43 DAILY PRN Chest Pain Ondansetron HCl 4 mg 10/18/21 07:25 Ondansetron 4 Mg/2 Ml Vial IV-PUSH 10/18/22 07:24 Q6H PRN Nausea/Vomiting Oxycodone HCl 5 mg 10/18/21 07:25 Oxycodone Ir 5 Mg Tablet PO Q4HR PRN Pain Scale 1 - 5 Oxycodone HCl 10 mg 10/18/21 07:25 Oxycodone Ir 5 Mg Tablet PO Q4HR PRN Pain Scale 6 - 10 Rivaroxaban 10 mg 10/19/21 09:00 10/19/21 10:01 Rivaroxaban 10 Mg Tablet PO 10/19/22 08:59 10 mg DAILY CB Administration Fluticasone/Salmeterol 1 puff 10/19/21 09:00 10/19/21 08:23 Fluticasone/Salmeterol 232-14 Mcg 60 Puff Inhaler INHALATION 10/19/22 08:59 1 puff BID CB Administration Sodium Chloride 0 ml 10/18/21 14:00 10/19/21 08:49 Sodium Chloride 0.9 % 10 Ml Syringe IV-PUSH 10/18/22 13:59 Not Given QSHIFT CB Sodium Chloride 0 ml 10/18/21 11:24 Sodium Chloride 0.9 % 10 Ml Syringe IV-PUSH 10/18/22 11:23 PRN PRN Flush Sodium Chloride 0 ml 10/18/21 11:24 Sodium Chloride 0.9 % 10 Ml Syringe IV-PUSH 10/18/22 11:23 PRN PRN Flush Sodium Chloride 10 ml 10/18/21 12:06 Sodium Chloride 0.9 % 10 Ml Vial.Pf INJECTION 10/18/22 12:05 PRN PRN Promethazine Dilution Spironolactone 25 mg 10/19/21 09:00 10/19/21 10:02 Spironolactone 25 Mg Tablet PO 10/19/22 08:59 25 mg QAM CB Administration Tramadol HCl 50 mg 10/18/21 07:25 Tramadol 50 Mg Tablet PO 04/16/22 07:24 Q4H PRN Pain Scale 1 - 5 Vitamin D 250 mcg 10/18/21 21:00 10/19/21 10:02 Cholecalciferol 125 Mcg (5,000 Units) Tablet PO 10/18/22 20:59 250 mcg BID CB Administration A&P - Hospitalist Assessment/Plan (1) Type 2 diabetes mellitus: Plan Type 2 diabetes mellitus with postop hyperglycemia -Lantus, SSI ?7.3 A1c 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 Chronic conditions: 1. HTN, HLD, CAD- atorvastatin, Bumetanide, Carvedilol, Losartan, Spironolactone 2. GRACY on CPAP Documented By: ABDIRASHID Olmedo 2 [id number] Signed By: <Electronically signed by ABDIRASHID Matias> 10/19/21 1440 <Electronically signed by Rodriguez Loera MD> 10/20/21 0845 [facility] Work Phone: [phone] 837-147907-20-2022 Progress note Author Reddy Brandt [facility] October 19, 2021 12:11pm Note Date/Time October 19, 2021 12:1 1pm [facility] [address] [place] [address] Orthopedic Progress Note Signed Patient: Anai Goodman MR#: [id number] : 1955 Acct:[id number] Age/Sex: 66 / M Adm Date: 2 Loc: Room: [address] [place] [address] Type : ADM IN Attending Dr: Reddy Brandt DO Copies to: ~ Date of Service: 10/19/2021 Subjective Subjective Interval History: Patient seen and evaluated at bedside. Doing well after right BKA. Pain well controlled. Eating well. No complaints. All questions answered. Overnight did have some elevated glucose findings for which internal medicine was consulted. Exam Physical Exam Vital Signs: Temp Pulse Resp BP Pulse Ox O2 Del Method O2 Flow Rate 97.8 F 79 18 151/74 H 96 Room Air 6 10/19/21 11:40 10/19/21 11:40 10/19/21 11:40 10/19/21 11:40 10/19/21 11:40 10/19/21 11:40 10/18/21 15:37 FiO2 21 10/18/21 23:03 Narrative: Patient seen evaluated on regular nursing floor. He is resting in supine position. He is comfortable and pleasant with a normal conversation. Right lower extremity is evaluated. His postoperative Kash wrap is benign and intact. He has no pain in the area. He can move the knee actively without difficulty. Calf is soft and compressible as is the thigh. Objective Labs Labs: Laboratory Results - last 24 hr 10/18/21 10/18/21 10/18/21 11:48 11:51 12:39 POC Glucose 231 POC Glucose Comment Glu2: cleaned meter Blood Type B Negative Blood Type Recheck B Negative Antibody Screen Negative 10/18/21 10/18/21 10/18/21 16:00 18:01 21:23 POC Glucose 193 258 451 H* POC Glucose Comment Glu2: cleaned meter Blood Type Blood Type Recheck Antibody Screen 10/19/21 10/19/21 10/19/21 02:12 08:26 11:37 POC Glucose 294 266 320 POC Glucose Comment Blood Type Blood Type Recheck Antibody Screen Assessment / Plan Assessment and plan (1) Type 2 diabetes mellitus: Plan: Did have some elevated glucose postsurgically. This is likely stress related. Internal medicine was consulted for evaluation. Appreciate input. Return to home dosing with sliding scale. Close monitoring Code(s): E11.9 - Type 2 diabetes mellitus without complications Status: Acute (2) Below knee amputation: Plan: POD #1 s/p right BKA for osteomyelitis of the right foot Maintain postoperative dressing Nonweightbearing right lower extremity, okay for scooter with knee weightbearing Pain control Okay to resume anticoagulation upon discharge Continue vitamin C Continue antibiotics per infectious disease Await intraoperative culture results Tight glucose control, appreciate hospitalist input Okay for discharge from orthopedic standpoint. Maintain postop dressing until follow-up. Follow-up in 1 week in office for wound check. We will plan for suture removal in 3 weeks to start the shrinking process of healthy. Call office with any questions or concerns Code(s): S88.119A - Complete traumatic amputation at level between knee and ankle, unspecified lower leg, initial encounter Status: Acute Documented By: Reddy Brandt DO 10/19/21 1208 Signed By: <Electronically signed by Reddy Brandt DO> 10/19/21 1211 [facility] Work Phone: 1(149) 268-395107-20-2022 Consult note Author Stewart Lucio [facility] October 19, 2021 1:42am Note Date/Time October 19, 2021 1:11 am [facility] [address] [place] [address] Hospitalist Consult Note Signed Patient: Anai Goodman MR#: [id number] : 1955 Acct:[id number] Age/Sex: 66 / M Adm Date: 2 Loc: Room: 8A5277-4 Type : ADM IN Attending Dr: Reddy Brandt DO Copies to: MD Deon Caban,DO Reddy Brandt, DO Bre Patel APRN~ HPI DATE OF CONSULTATION: 10/19/21 REQUESTING PROVIDER: Reddy Brandt Consult Narrative Reason for Consult: Diabetes HPI: Patient is a 66-year-old male with a PMHx of hypertension, type 2 diabetes, coronary artery disease, amputated toe of left foot, kidney failure, osteomyelitis of right tibia, status post, right transtibial below?knee amputation, right fibular osteotomy done by Dr. Perez on 10/17/2021. Patient seen and examined. Resting comfortably, right lower extremity dressing with Kash wrapintact. Denies chest pain or palpitation. No cough, dyspnea, or pain with inspiration. No abdominal pain or indigestion, constipation or diarrhea, nausea or vomiting. No dysuria or retention. No headache or dizziness. No fevers. The hospitalist team was consulted for medical management of type 2 diabetes andall other comorbidities. Review of Systems Review of Systems Review of systems: 10 point review of systems obtained, negative unless noted in the HPI below [facility] Attestation Statement: The following information was validated with the patient. Vaccinated for COVID-19?: Yes Medical History Amputated toe of left foot x5 Arthritis Asthma Coronary artery disease Diabetes mellitus, type 2 Gout Hyperlipidemia Hypertension Kidney failure Neuropathy GRACY on CPAP Skin cancer Surgical History AICD (automatic cardioverter/defibrillator) present History of cardiac catheterization stents x5 History of cholecystectomy History of foot surgery History of orthopedic surgery ankle fusion History of orthopedic surgery right knee Family History Mother Diabetes mellitus type 1 Father Heart disease Social History Smoking Status: Never smoker Substance Use Type: None Meds Medications and Allergies Allergies chlorpheniramine [From Tussionex] Allergy (Verified 10/18/21 11:48) Hives dextromethorphan Allergy (Verified 10/18/21 11:48) Unknown Reaction doxycycline Allergy (Verified 10/18/21 11:48) Chest Pain hydrocodone [From Tussionex] Allergy (Verified 10/18/21 11:48) Hives levofloxacin Allergy (Verified 10/18/21 11:48) Chest Pain phenylephrine Allergy (Verified 10/18/21 11:48) Unknown Reaction guaifenesin Adverse Reaction (Verified 10/18/21 11:48) Itching Home Medications albuterol sulfate 90 mcg/actuation aerosol inhaler 2 inh INHALATION DAILY PRN 10/14/21 [History Confirmed 10/18/21] allopurinol 100 mg tablet 100 mg PO QHS 10/14/21 [History Confirmed 10/18/21] apixaban 5 mg tablet (Eliquis) 5 mg PO BID 10/14/21 [History Confirmed 10/18/21] ascorbic acid (vitamin C) 500 mg tablet (Vitamin C) 500 mg PO DAILY 10/14/21 [History Confirmed 10/18/21] aspirin 81 mg tablet,delayed release 81 mg PO QHS 10/14/21 [History Confirmed 10/18/21] atorvastatin 80 mg tablet 80 mg PO QAM 10/14/21 [History Confirmed 10/18/21] bumetanide 2 mg tablet 2 mg PO BID 10/14/21 [History Confirmed 10/18/21] carvedilol 6.25 mg tablet 6.25 mg PO BID 10/14/21 [History Confirmed 10/18/21] cephalexin 500 mg capsule 500 mg PO QHS 10/14/21 [History Confirmed 10/18/21] cholecalciferol (vitamin D3) 250 mcg (10,000 unit) capsule 250 mcg PO BID 10/14/21 [History Confirmed 10/18/21] coenzyme Q10 200 mg capsule 200 mg PO QAM 10/14/21 [History Confirmed 10/18/21] fluticasone furoate 200 mcg-vilanterol 25 mcg/dose inhalation powder (Breo Ellipta) 1 inh INHALATION QAM 10/14/21 [History Confirmed 10/18/21] insulin aspart U-100 100 unit/mL subcutaneous solution See Protocol SUBCUT QID 10/14/21 [History Confirmed 10/18/21] insulin glargine 100 unit/mL subcutaneous solution (Lantus U-100 Insulin) 40 unit SUBCUT QHS 10/14/21 [History Confirmed 10/18/21] losartan 25 mg tablet 25 mg PO QAM 10/14/21 [History Confirmed 10/18/21] magnesium oxide 400 mg (241.3 mg magnesium) tablet 400 mg PO QAM 10/14/21 [History Confirmed 10/18/21] multivitamin 1 tab PO QAM 10/14/21 [History Confirmed 10/18/21] nitroglycerin 0.4 mg sublingual tablet 0.4 mg SUBLINGUAL DAILY PRN 10/14/21 [History Confirmed 10/18/21] prednisone 5 mg tablet 5 mg PO Q2D 10/14/21 [History Confirmed 10/18/21] spironolactone 25 mg tablet 25 mg PO QAM 10/14/21 [History Confirmed 10/18/21] rivaroxaban 10 mg tablet (Xarelto) 10 mg PO DAILY 10/18/21 [History Confirmed 10/18/21] Active Medications: Active Medications Generic Name Dose Route Start Last Admin Trade Name Freq PRN Reason Stop Dose Admin Acetaminophen 500 mg 10/18/21 17:24 10/18/21 23:38 Acetaminophen 500 Mg Tablet PO 10/21/21 17:23 Not Given Q6H CB Albuterol 2 puff 10/18/21 15:44 Albuterol Hfa 60 Puff/8 Gram Inhaler INHALATION 10/18/22 15:43 DAILY PRN asthma Ascorbic Acid 500 mg 10/18/21 08:00 10/18/21 17:19 Ascorbic Acid 500 Mg Tablet PO 10/18/22 07:59 500 mg BID.WITH.MEALS CB Administration Atorvastatin Calcium 80 mg 10/19/21 09:00 Atorvastatin 80 Mg Tablet PO 10/19/22 08:59 QAM CB Bumetanide 2 mg 10/18/21 21:00 10/18/21 21:38 Bumetanide 2 Mg Tablet PO 10/18/22 20:59 2 mg BID CB Administration Carvedilol 6.25 mg 10/18/21 21:00 10/18/21 21:37 Carvedilol 6.25 Mg Tablet PO 10/18/22 20:59 6.25 mg BID CB Administration Cyclobenzaprine HCl 10 mg 10/18/21 07:25 Cyclobenzaprine 10 Mg Tablet PO 10/18/22 07:24 Q8HR PRN Muscle Spasm Dextrose 0 gm 10/18/21 07:29 Dextrose 50% In Water 25 Gm/50 Ml Syringe IV-PUSH 10/18/22 07:28 PRN PRN Hypoglycemia Diphenhydramine HCl 25 mg 10/18/21 07:25 Diphenhydramine 25 Mg Capsule PO 10/18/22 07:24 QHS PRN Insomnia Diphenhydramine HCl 25 mg 10/18/21 07:25 Diphenhydramine 25 Mg Capsule PO 10/18/22 07:24 Q6H PRN Itching Docusate Sodium 100 mg 10/18/21 09:00 10/18/21 21:38 Docusate 100 Mg Capsule PO 10/18/22 08:59 100 mg BID CB Administration Glucose 0 gm 10/18/21 07:29 Dextrose 40% Gel 15 Gm Tube PO 10/18/22 07:28 PRN PRN Hypoglycemia Hydromorphone HCl 0.5 mg 10/18/21 07:25 Hydromorphone 0.5 Mg/0.5 Ml Syringe IV-PUSH Q2H PRN Pain Scale 7 - 10 Lactated Ringer's 1,000 mls @ 75 mls/hr 10/18/21 07:30 10/18/21 17:18 Lactated Ringers IV 10/18/22 07:29 75 mls/hr .[id number] CB Administration Cefazolin Sodium 1 gm in 50 mls @ 100 mls/hr 10/18/21 21:11 10/18/21 21:38 Ancef IV 10/19/21 05:40 100 mls/hr Q8H CB Administration Lactated Ringer's 1,000 mls @ 20 mls/hr 10/18/21 11:24 10/18/21 16:23 Lactated Ringers IV 10/19/21 11:23 20 mls/hr .Q24H ONE Infusion Insulin Aspart 0 units 10/18/21 08:00 10/18/21 21:38 Insulin Aspart 300 Units/3 Ml Insuln.Pen SUBCUT 10/18/22 07:59 6 units TID.WM.HS [facility] Administration Protocol Insulin Aspart 0 units 10/18/21 17:00 10/18/21 23:37 Insulin Aspart 300 Units/3 Ml Insuln.Pen SUBCUT 10/18/22 16:59 Not Given TID.WM.HS [facility] Insulin Detemir 40 units 10/18/21 22:00 10/18/21 21:39 Insulin Detemir 300 Units/3 Ml Insuln.Pen SUBCUT 10/18/22 21:59 40 units QHS [facility] Administration Losartan Potassium 25 mg 10/19/21 09:00 Losartan 25 Mg Tablet PO 10/19/22 08:59 QAM [facility] Magnesium Oxide 400 mg 10/19/21 09:00 Magnesium Oxide 400 Mg Tablet PO 10/19/22 08:59 QAM [facility] Multivitamins 1 tab 10/19/21 09:00 Multivitamin 1 Tab Tablet PO 10/19/22 08:59 QAM [facility] Nitroglycerin 0.4 mg 10/18/21 15:44 Nitroglycerin 0.4 Mg Tab.Subl SUBLINGUAL 10/18/22 15:43 DAILY PRN Chest Pain Ondansetron HCl 4 mg 10/18/21 07:25 Ondansetron 4 Mg/2 Ml Vial IV-PUSH 10/18/22 07:24 Q6H PRN Nausea/Vomiting Oxycodone HCl 5 mg 10/18/21 07:25 Oxycodone Ir 5 Mg Tablet PO Q4HR PRN Pain Scale 1 - 5 Oxycodone HCl 10 mg 10/18/21 07:25 Oxycodone Ir 5 Mg Tablet PO Q4HR PRN Pain Scale 6 - 10 Rivaroxaban 10 mg 10/19/21 09:00 Rivaroxaban 10 Mg Tablet PO 10/19/22 08:59 DAILY CB Fluticasone/Salmeterol 1 puff 10/19/21 09:00 Fluticasone/Salmeterol 232-14 Mcg 60 Puff Inhaler INHALATION 10/19/22 08:59 BID [facility] Sodium Chloride 0 ml 10/18/21 14:00 10/18/21 23:38 Sodium Chloride 0.9 % 10 Ml Syringe IV-PUSH 10/18/22 13:59 Not Given QSHIFT CB Sodium Chloride 0 ml 10/18/21 11:24 Sodium Chloride 0.9 % 10 Ml Syringe IV-PUSH 10/18/22 11:23 PRN PRN Flush Sodium Chloride 0 ml 10/18/21 11:24 Sodium Chloride 0.9 % 10 Ml Syringe IV-PUSH 10/18/22 11:23 PRN PRN Flush Sodium Chloride 10 ml 10/18/21 12:06 Sodium Chloride 0.9 % 10 Ml Vial.Pf INJECTION 10/18/22 12:05 PRN PRN Promethazine Dilution Spironolactone 25 mg 10/19/21 09:00 Spironolactone 25 Mg Tablet PO 10/19/22 08:59 QAM CB Tramadol HCl 50 mg 10/18/21 07:25 Tramadol 50 Mg Tablet PO 04/16/22 07:24 Q4H PRN Pain Scale 1 - 5 Vitamin D 250 mcg 10/18/21 21:00 10/18/21 21:37 Cholecalciferol 125 Mcg (5,000 Units) Tablet PO 10/18/22 20:59 250 mcg BID CB Administration Exam Physical Exam Vital Signs: Temp Pulse Resp BP Pulse Ox 97.6 F 76 19 109/66 97 10/18/21 16:45 10/18/21 23:03 10/18/21 23:03 10/18/21 19:00 10/18/21 23:03 Narrative: CONST- Appears well -developed and well nourished No acute distress. HEAD - Normocephalic and atraumatic EENT-Sclera nonicteric and conjunctive are nonerythemic, moist oral mucosa, pharynx clear NECK-Supple, no cervical lymphadenopathy CARDIAC-normal rate, regular rhythm, normal S1 & S2. PULM-diminished without wheeze or rhonchi, RA, no accessory muscle use or cough noted ABD - Soft. sounds are normal. No distention No tenderness EXTREM- Amputation to RLE. Dressing with kash-wrap intact. LLE transmetatarsal amputation. SKIN- W/D good turgo MS- MAEX4 spontaneously with equal with equal strength NEURO- A&Ox3 speech clear and tongue midline, equal facial symmetry no focal motor deficits PSYCH-Mood, affect and behavior appropriate Results Lab Results Labs: Laboratory Results - last 72 hr 10/18/21 21:23: POC Glucose 451 H*, POC Glucose Comment 10/18/21 18:01: POC Glucose 258, POC Glucose Comment Glu2: cleaned meter 10/18/21 16:00: POC Glucose 193 10/18/21 12:39: Blood Type Recheck B Negative 10/18/21 11:51: POC Glucose 231, POC Glucose Comment Glu2: cleaned meter 10/18/21 11:48: Blood Type B Negative, Antibody Screen Negative Microbiology Results Micro: 10/18/21 15:10 Aerobic Culture - Pending Leg,Right - Bone Anaerobic Culture - Pending Gram Stain - Pending A&P - Hospitalist Assessment/Plan (1) Type 2 diabetes mellitus: Plan Type 2 diabetes mellitus ?Blood sugars elevated postsurgery ?Lantus 40units started, agree with plan ?Accu-Cheks before meals and at bedtime, SSI ?Hypoglycemic protocol ?Check A1c *Right foot osteomyelitis *Status post right transtibial below?knee amputation/right fibula osteotomy ?Continue plan of care per Orthopedic surgery team. Chronic conditions: Type 2 diabetes/hypertension?on home medications managed by the primary team. I have personally seen and examined the patient, agree with the plan as outlinedabove Documented By: Bre Patel APRN 10/19/21 0101 Signed By: <Electronically signed by KRUNAL Patel> 10/19/21 0126 <Electronically signed by Stewart Lucio MD> 10/19/21 0142 [facility] Work Phone: [phone] Evaluation note* Encounter Date Diagnosis Assessment Notes Treatment Notes Treatment Clinical Notes Sep, Acute right ankle pain (ICD-10 - M25.571) Anai presents with right ankle osteomyelitis for discussion for BKA. At this juncture we have discussed the findings and diagnosis as well as personally reviewed appropriate imaging and performed interpretation of related testing and examination with the patient in office today. Prior medical notes from Dr. Lee and history have been reviewed. We have had a thorough discussion regarding below-knee amputation. At this point the patient is tired of dealing with a chronic infection and would like to move forward with the process of scheduling. We discussed the inherent risks involved in his surgery including risk of infection and failure to fully read osteomyelitis. We also specifically discussed phantom limb pain which could be ongoing postoperatively. Surgical complications were discussed as well which will be inherent to moving forward. We have reviewed his lab work today. We reviewed his MRI today. We have discussed the process of surgery, the postoperative course, and the risks involved with below-knee amputation. He is ready to proceed with surgery. We will schedule at this time and move forward if cleared At this juncture we have discussed the findings and diagnosis as well as reviewed appropriate imaging and performed interpretation of testing. Surgical intervention is recommended. Prior medical notes and history have been reviewed. Surgical versus non-operative management have been discussed in detail and non-operative management was given as an option. The risks of surgical intervention were given. Pre-operative optimization will be done prior to surgical procedure to limit gissell-operative risks. I have discussed the planned procedure, how and who performs the procedure, and the personnel involved. Cardiovascular, pulmonary, and other life threatening episodes can occur during surgery although there is a low risk of these happening. Surgical risks including bleeding, neurovascular injury, wound closure problems and infection were discussed. Gissell-operative risks including infection, bleeding, wound healing problems, and need for further surgery were discussed. It was discussed that there is a possibility of blood transfusion with any surgical procedure and the risks involved in receiving a blood transfusion. Possibility of, and need for, future bracing or DME use, physical or occupational therapy, mental therapy, rehabilitation, pain management and need for secondary procedures was discussed. I have warned against smoking and the use of tobacco products due to the risks associated with them, in particular, poor healing. I have advised against the assisted use of narcotic pain medication. I have advised to follow all post-operative instructions in order to obtain the best outcome. Informed consent has been verbally affirmed and signed as indicated. Plan for right lower extremity BKA. Observation admission postoperatively. Peripheral nerve blocks per anesthesia. Continue antibiotics per infectious disease. Preoperative Ancef to be given along with postoperative doses while inpatient. We will plan for follow-up 1 week postoperatively The patient has been involved in our cooperative treatment plan and agrees to move forward with treatment at this time. Reviewed MRI. Discussed the process of the BKA surgery in depth with the risks and benefits. Sep, S/P ankle fusion (ICD-10 - Z98.1) Sep, Other chronic osteomyelitis of right tibia (ICD-10 - M86.661) [facility] Other 07-07-2022 Evaluation note* Encounter Date Diagnosis Assessment Notes Treatment Notes Treatment Clinical Notes Sep, Other chronic osteomyelitis of right tibia (ICD-10 - M86.661) [facility] [address] Other 07-07-2022 Evaluation note* Encounter Date Diagnosis Assessment Notes Treatment Notes Treatment Clinical Notes Sep, Osteomyelitis of ankle and foot (ICD-10 - M86.9) With developing new situation where his decision to have amputation has been made he has been off Bactrim and Augmentin and is back on the Keflex waiting for MRI to be done and ultimately amputation to be scheduled. Patient has concerned that there is sitting on a time bomb but I explained that as long as he is seeing wound care twice a week and they do not see any progression of these wounds that likely it is not urgent. I did place a call to MRI to see if we can move up the scheduled imaging but patient does have a pacemaker and it has to be coordinated with the pacemaker clinic in order to place his pacemaker into MRI mode. Anyway deburr technician was very helpful and she is going to see which she can do. It was also noted that the original MRI order was for the left foot and they are going to reach out to orthopedics to try to obtain an MRI for the right foot which is the foot involved. For now he is maintained on the Keflex. Refill was given. Obviously if they have concerns or wound care is concerned that the infection is getting worse they are to call me WALT. [address] Other 06-09-2022 Evaluation note* Encounter Date Diagnosis Assessment Notes Treatment Notes Treatment Clinical Notes Aug, Osteomyelitis of ankle and foot (ICD-10 - M86.9) Patient with known chronic underlying osteomyelitis and internal hardware present. Previous cultures from the bone with Proteus and soft tissue with MRSA. He is currently on Bactrim and Augmentin. Has been on these now for 2 and half weeks. Feel we need follow-up on laboratory to ensure normalization of his CRP and to ensure that his creatinine has not been affected by the Bactrim therapy. Given this is an acute flareup on chronic osteomyelitis perhaps his original suppression Keflex was not enough recently. Therefore will await labs and based on labs will guide us on current antibiotic use. There is been no recent cultures however collected is the really nothing is to culture externally. Given his creatinine issues would likely plan Augmentin as ask choice of suppression as long as flareup does not occur. Since both Bactrim and Augmentin had started the same time it is hard to know if both of these resolve the infection or if really just one was needed. Therefore will await labs and call him with results with direction of likely stopping the Bactrim and decreasing the Augmentin to a suppressive dose at that time [address] Other 11-23-2021 NoteChief Complaint Basal cell carcinoma left ear scheduled for excision and preparation surgical site second stage andPE tube placement History of Present Illness PLANNED PROCEDURE: Excision and preparation of surgical site left ear second stage auricular reconstruction division and inset, possible full-thickness skin graft versus myocutaneous advancement flap, possible bilateral microscopic tympanostomies with PE tube placement DATE OF PROCEDURE: 03/03/2021 PATIENT : 1955 LOCATION OF PROCEDURE: [facility] SURGEON: Chirag Gutierrez DO INFORMED CONSENT: Obtained by and on file at [facility] CC: [Basal cell carcinoma left ear post reconstruction with postauricular mastoid flap HPI: 65 year old male complains of basal cell carcinoma left ear post reconstruction with postauricular mastoid flap. Dr. Gutierrez and the patient decided that the next best course of treatment would be a surgical intervention. Review of Systems The patient's review of systems, past medical history/medications/allergies were reviewed and discussed with the patient. GENERAL: No weakness, malaise HEENT: Positive per HPI CARDIOVASCULAR: No chest pain, palpitations RESPIRATORY: No shortness of breath, cough, wheezing, and pleuritic chest pain ABDOMEN/GI: No, nausea, vomiting MUSCULOSKELETAL: No joint pain or swelling SKIN: No rash, discoloration NEURO: No, numbness, tingling, and seizure Physical Exam T: 36.9 ?C (Temporal Artery) HT: 182 cm WT: 92 kg WT: 92 kg (Dosing) BMI: 27.77 Vitals reviewed and any abnormalities discussed with the patient General: No acute distress, alert and oriented ?3 Voice: Normal tone, volume, and projection noted. Head: Normocephalic atraumatic, no abnormal masses or lesions noted Eyes: Extraocular motion is intact bilaterally, pupils are equally reactive and round to light Ears: Left ear with postauricular mastoid flap with excellent viability and healing well. Sutures clean dry and intact. Upon removal of sutures there appears to be some difficulty healing at the scaphoid fossa region of the attachment of the most distal portion of the flap this was debrided and Steri- Strips placed here for additional healing. Nose: External nasal dorsum is straight. Anterior rhinoscopy reveals normal intranasal anatomy, a straight septum, and normal inferior turbinates bilaterally. Mouth: Dentition is good. Oral tongue has normal mobility and appears normal with no abnormal masses or lesions. Oropharynx: Tonsils are 1-2+. The posterior oropharynx shows no abnormal masses or lesions, Mirror: Not performed due to gag reflex. Neck: Neck is supple bilaterally. No thyromegaly. Laryngeal crepitus is normal. CV: Heart rate normal. Equal bilateral peripheral perfusion. Pulmonary: No audible wheezing, stridor, or stertor noted. Equal chest excursion noted bilaterally. Musculoskeletal: There is no evidence of temporomandibular joint disorders or inflammation of the muscles of mastication bilaterally. Heme/Lymph: There is no cervical lymphadenopathy noted. No visible bruising noted in the head and neck. Neuro: Cranial nerves II - XII are grossly normal with no focal deficits noted. January 19, 2021 audiogram and tympanogram showing moderate to severe sensorineural hearing loss bilaterally. Possible air-bone gap at 4000 Hz. Type B tympanograms bilaterally. With normal volumes. Word recognition scores 84% on the right and 80% on the left. January 19, 2021 procedure: Skin Debridement: The region was carefully cleansed/debrided using a combination of 4 x 4's and Q- tips soaked with half hydrogen peroxide and half saline. Care was taken to debride any dried blood, scabbing, or debri at the incision site. When indicated a single-tooth Adson and suture scissors were used to further cleanse/debride the wound. Topical Bactroban ointment was carefully placed on the wound. Sutures wereremoved as well. The wound edge of the distal flap had some mild few millimeter necrosis but I wantthis attached better to the scaphoid region. This was debrided and Steri-Strips used to reinforce this. January 12, 2021 procedure: Skin Debridement: The region was carefully cleansed/debrided using a combination of 4 x 4's and Q- tips soaked with half hydrogen peroxide and half saline. Care was taken to debride any dried blood, scabbing, or debride at the incision site. When indicated a single-tooth Adson and suture scissors were used to further cleanse/debride the wound. Topical Bactroban ointment was carefully placed on the wound. January 11, 2021 excision and preparation of surgical site and reconstruction of left auricular defect with postauricular mastoid flap January 05, 2021 modified Mohs of left ear [1] Additional Vitals No qualifying data available. Assessment/Plan 1. ETD (eustachian tube dysfunction) 2. JAN (serous otitis media) 3. Basal cell carcinoma, ear I would like to get a repeat audiogr (more content not included)...[facility]10-11-2021 NoteChief Complaint Open wound Left ear History of Present Illness PLANNED PROCEDURE: Excision and preparation of surgical site, complex plastics myocutaneous advancement flap tear of left ear defect DATE OF PROCEDURE: 01/11/2021 PATIENT : 1955 LOCATION OF PROCEDURE: [facility], SURGEON: Chirag Gutierrez DO INFORMED CONSENT: Obtained by and on file at [facility] CC: Basal cell carcinoma left ear HPI: 65 year old male complains of basal cell carcinoma left ear with previous Mohs procedure on 01/05/2021. Dr. Gutierrez and the patient decided that the next best course of treatment would be a surgicalintervention. Review of Systems The patient's review of systems, past medical history/medications/allergies were reviewed and discussed with the patient. GENERAL: No weakness, malaise HEENT: Positive per HPI CARDIOVASCULAR: No chest pain, palpitations RESPIRATORY: No shortness of breath, cough, wheezing, and pleuritic chest pain ABDOMEN/GI: No, nausea, vomiting MUSCULOSKELETAL: No joint pain or swelling SKIN: No rash, discoloration NEURO: No, numbness, tingling, and seizure Physical Exam Vitals reviewed and any abnormalities discussed with the patient General: No acute distress, alert and oriented ?3 Voice: Normal tone, volume, and projection noted. Head: Normocephalic atraumatic, no abnormal masses or lesions noted Eyes: Extraocular motion is intact bilaterally, pupils are equally reactive and round to light Ears: External ears and mastoids appear normal. microscopic exam serous otitis media was known on the right. No significant amount of cerumen. No acute or chronic infections. I recommended an audiogram and tympanogram upon a follow-up evaluation. In the interim we will treat with Flonase 2 sprays each nostril daily. The rest of the physical exam was negative with the exception of findings on flexible laryngoscopy and of course the ulcerative lesion on the left ear. This ulcerative lesion in theleft ear measures 1.3 cm in size. Nose: External nasal dorsum is straight. Anterior rhinoscopy reveals normal intranasal anatomy, a straight septum, and normal inferior turbinates bilaterally. Mouth: Dentition is good. Oral tongue has normal mobility and appears normal with no abnormal masses or lesions. Oropharynx: Tonsils are 1-2+. The posterior oropharynx shows no abnormal masses or lesions, Mirror: Not performed due to gag reflex. Neck: Neck is supple bilaterally. No thyromegaly. Laryngeal crepitus is normal. CV: Heart rate normal. Equal bilateral peripheral perfusion. Pulmonary: No audible wheezing, stridor, or stertor noted. Equal chest excursion noted bilaterally. Musculoskeletal: There is no evidence of temporomandibular joint disorders or inflammation of the muscles of mastication bilaterally. Heme/Lymph: There is no cervical lymphadenopathy noted. No visible bruising noted in the head and neck. Neuro: Cranial nerves II - XII are grossly normal with no focal deficits noted. [1] Additional Vitals No qualifying data available. Assessment/Plan 1. Basal cell carcinoma of left ear Patient has signed consents for the above stated procedure. All risks and benefits discussed. Patient will be scheduled. Further medical clearance from patient's primary care provider and/or specialists will be obtained based on risk stratification, exam findings, past medical history, and current medications. Basal cell carcinoma of left ear The patient has an ulcerative lesion on the helix of the left ear. This was biopsied 2 years ago and found to be basal cell carcinoma. Pathology report brought today confirming basal cell carcinoma. We proceeded with modified Mohs procedure as described above. Frozen sections noted to be negative after 3 rounds of Mohs. Reconstruction options reviewed with the patient in detail. 2. ETD (eustachian tube dysfunction) 3. JAN (serous otitis media) 4. Vasomotor rhinitis In addition the patient has vasomotor rhinitis and again I recommend saline rinses to the nose twice daily and Flonase 2 sprays each nostril daily. I also recommend ipratropium bromide to be taken 30minutes before a meal to hopefully stop some of the vasomotor rhinitis symptoms that occur with eating. 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 History of Present Illness Anai is a pleasant 65 year old male who returns today for a MOHs procedure to the left ear. 12/15/20 Referred by pcp Irais to ENT for lesion left ear duration of 1 year. Concerned about BCC. Denies any pain or redness from the area. He is also having right ear pain and congestion today with difficulty hearing duration 6+ months. Previous ENT management by Dr. Freed. Previous pathology by physician in [place] about 1 year ago. PMHx of multiple surgeries in right foot. Review of Systems All ochoa are negative unless otherwise indicated by a Y Skin Lesion--Y Wound/Abrasion Swelling Drainage Facial Pain Physical Exam Vitals & Measurements T: 36.5 ?C (Temporal Artery) HT: 180 cm WT: 94.2 kg WT: 94.2 kg (Dosing) BMI: 29.07 Vitals reviewed and any abnormalities discussed with the patient General: No acute distress, alert and oriented ?3 Voice: Normal tone, volume, and projection noted. Head: Normocephalic atraumatic, no abnormal masses or lesions noted Eyes: Extraocular motion is intact bilaterally, pupils are equally reactive and round to light Ears: External ears and mastoids appear normal. microscopic exam serous otitis media was known on the right. No significant amount of cerumen. No acute or chronic infections. I recommended an audiogram and tympanogram upon a follow-up evaluation. In the interim we will treat with Flonase 2 sprays each nostril daily. The rest of the physical exam was negative with the exception of findings on flexible laryngoscopy and of course the ulcerative lesion on the left ear. This ulcerative lesion in theleft ear measures 1.3 cm in size. Nose: External nasal dorsum is straight. Anterior rhinoscopy reveals normal intranasal anatomy, a straight septum, and normal inferior turbinates bilaterally. Mouth: Dentition is good. Oral tongue has normal mobility and appears normal with no abnormal masses or lesions. Oropharynx: Tonsils are 1-2+. The posterior oropharynx shows no abnormal masses or lesions, Mirror: Not performed due to gag reflex. Neck: Neck is supple bilaterally. No thyromegaly. Laryngeal crepitus is normal. CV: Heart rate normal. Equal bilateral peripheral perfusion. Pulmonary: No audible wheezing, stridor, or stertor noted. Equal chest excursion noted bilaterally. Musculoskeletal: There is no evidence of temporomandibular joint disorders or inflammation of the muscles of mastication bilaterally. Heme/Lymph: There is no cervical lymphadenopathy noted. No visible bruising noted in the head and neck. Neuro: Cranial nerves II - XII are grossly normal with no focal deficits noted. Flexible laryngoscopy performed. Procedure: Flexible Nasolaryngoscopy Flexible nasal laryngoscopy was performed due to the patient's history of vasomotor rhinitis and cough after eating and inability to tolerate a mirror exam. Verbal informed consent was obtained from the patient prior to the procedure. A timeout procedure was performed. A 1:1 mixture of 4% lidocaine solution with Afrin nasal solution was instilled into the patient's right nasal cavity. A brief amount of time was allowed to elapse for nasal decongestion and anesthesia. The 4 mm flexible nasolaryngoscope was then carefully inserted into the patient's nasal cavity and used to examine all structures in the nasal cavity, nasopharynx, oropharynx, hypopharynx, and endolarynx, showing no masses or lesions the nasopharynx oropharynx hypopharynx. The true vocal folds move well with both abduction and abduction the airway is patent. I see some drainage along the posterior pharyngeal wall. No evidence of LPR.. The flexible nasal laryngoscope was removed from the patient without any complications. The patient tolerated the procedure well. January 05, 2021 modified Mohs of left ear Indications for surgery: This patient presented to the [facility] with a chief concern of skin cancer. After pathologic confirmation of the nature of the lesion was determined, available treatment options as well as the risks and benefits of such therapies were reviewed in detail with the patient and her primary caregiver. This included a discussion of conventional excision, micrographic oriented histological excision with pathological examination the margins, radiation therapy and medical oncology evaluation. The patient desired surgical treatment plan and consented specifically for a micro-graphically oriented histological excision with pathologic examination of the margins. The risks and benefits of this procedure as well as its alternatives and rationale as detailed in theconsent forms were discussed with the patient and her primary caregiver and all questions were answered to the full satisfaction of the patient. The patient agreed with the plan and consented to proceed with the surgery. Operative narrative: The site was appropriately identified and corroborated preoperatively wit (more content not included)...[facility]10-06-2021 NoteClinical Information Procedure: Excision with frozen section left ear Pre-operative diagnosis: Basal cell carcinoma Outside pathology report from [facility] was received with accession number [id number]. SP Specimen A Skin of left ear, 12-3 margin B Skin of left ear, 3-6 margin C Skin of left ear, 6-9 margin D Skin of left ear, 9-12 margin E Skin of left ear, deep margin F Skin of left ear, permanent margin G Additional skin of left ear, 12-3 margin H Additional skin of left ear, 3-6 margin I Additional skin of left ear, 6-9 margin J Additional skin of left ear, 9-12 margin K Additional skin of left ear, permanent margin L Additional skin of left ear, 12-3 margin M Additional skin of left ear, 3-6 margin N Additional skin of left ear, 6-9 margin O Additional skin of left ear, 9-12 margin P Additional skin of left ear, permanent margin Gross Description Part B: Received fresh for frozen section labeled ?12-3 margin of left ear' is an elongated piece of light arellano skin without gross lesions measuring 0.8 x 0.1 x 0.1 cm. The specimen is entirely submitted for frozen section and subsequently submitted in cassette A1. Part B: Received fresh for frozen section labeled ?3-6 margin of left ear' is an elongated piece oflight arellano skin without gross lesions measuring 1.0 x 0.1 x 0.1 cm. The specimen is entirely submitted for frozen section and subsequently submitted in cassette B1. Part C: Received fresh for frozen section labeled ?6-9 margin of left ear' are two pieces of light arellano skin without gross lesions measuring 0.2 x 0.2 x 0.1 cm and 0.4 x 0.1 x 0.1 cm. The specimen is entirely submitted for frozen section and subsequently submitted in cassette C1. Part D: Received fresh for frozen section labeled ?9-12 margin of left ear' is an elongated piece of light arellano skin without gross lesions measuring 1.0 x 0.1 x 0.1 cm. The specimen is entirely submitted for frozen section and subsequently submitted in cassette D1. Part E: Received fresh for frozen section labeled ?deep margin of left ear' is an elongated piece of pink-arellano tissue measuring 0.4 x 0.2 x 0.1 cm. The specimen is entirely submitted for frozen section and subsequently submitted in cassette E1 Part F: Received in formalin labeled 'permanent margin of left ear' is an unorientated elongated piece of light arellano skin measuring 1.2 x 0.7 x 0.2 cm. There is an elongated light arellano lesion measuring0.8 cm in greatest dimension. The excision margin is painted with black ink. One side is additionally painted with yellow ink for reference. The center is entirely submitted in cassette F1. The ends are entirely submitted in cassette F2. Part G: Received fresh for frozen section labeled ?12-3 margin of left ear' are two elongated pieces of light arellano skin without gross lesions measuring 0.4 x 0.1 x 0.1 cm and 0.8 x 0.1 x 0.1 cm. The specimen is entirely submitted for frozen section and subsequently submitted in cassette G1. Part H: Received fresh for frozen section labeled ?3-6 margin of left ear' is an elongated piece oflight arellano skin without gross lesions measuring 0.9 x 0.2 x 0.1 cm. The specimen is entirely submitted for frozen section and subsequently submitted in cassette H1. Part I: Received fresh for frozen section labeled ?6-9 margin of left ear' are two elongated piecesof light arellano skin without gross lesions measuring 0.3 x 0.1 x 0.1 cm and 0.8 x 0.1 x 0.1 cm. The specimen is entirely submitted for frozen section and subsequently submitted in cassette I1. Part J: Received fresh for frozen section labeled ?9-12 margin of left ear' is an elongated piece of light arellano skin without gross lesions measuring 1.5 x 0.2 x 0.2 cm. The specimen is entirely submitted for frozen section and subsequently submitted in cassette J1. Part K: Received in formalin labeled 'permanent margin of left ear' is an elongated piece of light arellano skin measuring 1.8 x 1.0 x 0.2 cm. There is a central portion that is missing, which represents the previous biopsy site, measuring 1.3 x 1.0 x 0.2 cm. The excision margin is painted with black ink. One side is additionally painted with yellow ink for reference. The center fell apart upon sectioning. The center is entirely submitted in cassettes K1-K2. The ends are entirely submitted in cassette K3. Part L: Received fresh for frozen section labeled ?12-3 margin of left ear' is an elongated piece of light arellano skin without gross lesions measuring 2.0 x 0.2 x 0.2 cm. The specimen is entirely submitted for frozen section and subsequently submitted in cassette L1. Part M: Received fresh for frozen section labeled ?3-6 margin of left ear' is an elongated piece oflight arellano skin without gross lesions measuring 1.3 x 0.2 x 0.1 cm. The specimen is entirely submitted for frozen section and subsequently submitted in cassette M1. Part N: Received fresh for frozen section labeled ?6-9 margin of left ear' is are two elongated pieces of light arellano skin without gross lesi (more content not included)...[facility]:Performed By: #### SPR ####[facility] (DEFAULT)[id number] [place], [place] [address]Wztuxytdf summary Author Ghanshyam Kaye [facility] October 28, 2021 10:30am Note Date/Time October 27, 2021 1:34 pm [facility] [address] [place] [id number] Discharge Summary Signed Patient: Anai Goodman MR#: [id number] : 1955 Acct:[id number] Age/Sex: 66 / M Adm Date: 2 Loc: Room: 4A6278-[address]: Ghanshyam Kaye MD Copies to: KRUNAL Mendez,DO Ghanshyam Kaye MD~ Providers <Chante Narayan APRN - Last Filed: 10/27/21 13:34> Date of Discharge: 10/27/21 Discharging Provider: Chante Narayan Primary Care Provider: Deon Braxton Consults: 10/21/21 17:51 Consult to Adult Hospitalist Routine Consult to Dietitian Routine Consult to Occupational Therapy Routine Consult to Physical Therapy Routine Speech Admit Screen Routine <Ghanshyam Kaye MD - Last Filed: 10/28/21 10:30> Discharging Provider: Ghanshyam Kaye Primary Care Provider: Deon Braxton Discharge Diagnosis <Chante Narayan APRN - Last Filed: 10/27/21 13:34> (1) Below knee amputation: (2) Type 2 diabetes mellitus: (3) Impaired mobility and activities of daily living: (4) Kidney failure: (5) Hypertension: (6) Hyperlipidemia: Final Diagnosis Final Discharge Diagnosis: As above <Ghanshyam Kaye MD - Last Filed: 10/28/21 10:30> (1) Below knee amputation: (2) Type 2 diabetes mellitus: (3) Impaired mobility and activities of daily living: (4) Kidney failure: (5) Hypertension: (6) Hyperlipidemia: Summary <Chante Narayan APRN - Last Filed: 10/27/21 13:34> Hospital Course Hospital course: Mr. Goodman is a 66 year [facility] male [facility] right BKA. His past medical history significant for DM type II, CAD, MT, s/p pacemaker/defibrillator insertion, CKD, osteomyelitis of the right tibia. He reports a history of traumatic injury to the right foot several years ago when he dropped several pallets onto his foot at work. He has had numerous surgeries with hardware placement in attempt to heal the fractures. Unfortunately, all of the procedures were unsuccessful and for the past 12 months he has been treated for osteomyelitis and chronic Charcot foot infection,which left him nonambulatory. Ortho recommended transtibial BKA. He underwent the above listed procedure performed by Dr. Perez on 10/17/2021. Heis to remain nonweightbearing to the operative extremity until wound healing is complete. Postoperatively, patient's blood glucose control was suboptimal. Basal insulin dose was adjusted, currently FSBSs are stable. Postoperative pain is minimal, he denies any phantom pains. He progressed well in therapy. He is able to ambulate functional distances witha walker using nonoperative extremity. Patient is okay to use knee scooter for mobility as long as he puts no pressure on surgical incision. He was discharged home with and home health services. Patient's was on Xarelto while inpatient. Per [facility] , insurance co-pay would be over $120 for this medication. Patient was Eliquis per home regimen, will discontinue Xarelto and resume Eliquis per home dose. Condition Condition at Discharge: Stable Time Spent with Patient Time spent providing/coordinating discharge services (# min): 35 Specific discharge activities: Total time spent discharging this patient > 30 minutes Greater than 30 minutes spent preparing the patient for discharge including the following: Discussion of the hospital stay with patient and/or family Instructions for continuing care to all relevant caregivers Reviewing discharge plan with medical staff, social work, care management, and nursing staff Supervision of discharge paperwork, medication reconciliation, prescriptions, and outpatient appointments Prescribed necessary DME at discharge when indicated <Ghanshyam Kaye MD - Last Filed: 10/28/21 10:30> Hospital Course Hospital course: Mr. Goodman is a 66 year old male who was [facility] to [facility] rehab[facility] s/p planned right BKA. His past medical history significant for DM type II, CAD, MT, s/p pacemaker/defibrillator insertion, CKD, osteomyelitis of the right tibia. He reports a history of traumatic injury to the right foot several years ago when he dropped several pallets onto his foot at work. He has had numerous surgeries with hardware placement in attempt to heal the fractures. Unfortunately, all of the procedures were unsuccessful and for the past 12 months he has been treated for osteomyelitis and chronic Charcot foot infection,which left him nonambulatory. Ortho recommended transtibial BKA. He underwent the above listed procedure performed by Dr. Perez on 10/17/2021. Heis to remain nonweightbearing to the operative extremity until wound healing is complete. Postoperatively, patient's blood glucose control was suboptimal. Basal insulin dose was adjusted, currently FSBSs are stable. Postoperative pain is minimal, he denies any phantom pains. He progressed well in therapy. He is able to ambulate functional distances witha walker using nonoperative extremity. Patient is okay to use knee scooter for mobility as long as he puts no pressure on surgical incision. He was discharged home with and home health services. Patient's was on Xarelto while inpatient. Per [facility] pharmacy , insurance co-pay would be over$120 for this medication. Patient was Eliquis per home regimen, will discontinue Xarelto and resume Eliquis per home dose. Agree with above Status at Discharge Functional status at discharge: uses cane/walker Overall status at discharge: patient is progressing back to baseline Diagnostic Studies <Chante Narayan APRN - Last Filed: 10/27/21 13:34> Completed and Pending Studies Labs on day of discharge: 10/27/21 11:29: POC Glucose 166, POC Glucose Comment Glu2: cleaned meter 10/27/21 07:18: POC Glucose 103, POC Glucose Comment Glu2: cleaned meter 10/26/21 20:46: POC Glucose 257 10/26/21 16:29: POC Glucose 197, POC Glucose Comment Glu2: cleaned meter Exam <Chante Narayan APRN - Last Filed: 10/27/21 13:34> Physical Exam Vital Signs: Temp Pulse Resp BP Pulse Ox O2 Del Method FiO2 98.6 F 70 16 132/72 98 Room Air 21 10/27/21 05:00 10/27/21 05:00 10/27/21 05:00 10/27/21 05:00 10/27/21 05:00 10/27/21 07:30 10/22/21 04:14 Const General: cooperative, comfortable, no acute distress, well developed and well groomed Nutritional Appearance: average body habitus Orientation: alert, awake and oriented x3 HEENT Head: normal to inspection, normocephalic, atraumatic and no cyanosis of lips/distal nose Ears: hearing grossly normal bilaterally Face and sinus: normal facial exam Eyes General: appearance normal, both eyes and all related structures Pupils: PERRL EOM: EOM intact bilaterally Neck Neck: full ROM, no lymphadenopathy, trachea midline, supple and nontender Chest Chest palpation & inspection: normal inspection of the chest Resp Effort & Inspection: normal respiratory effort, able to speak in complete sentences, symmetric chest movement, no audible wheezes and no cough Auscultation: clear to auscultation bilaterally Cardio Jugular venous pressure: no JVD Palpation: normal PMI Rate: regular rate Rhythm: regular rhythm Heart Sounds: S1 normal and S2 normal GI Inspection: normal to inspection Palpation: soft, no hepatosplenomegaly and nontender Auscultation: normal bowel sounds General: deferred Musc Cervical Spine: normal cervical lordosis and cervical ROM normal Skin General: no rashes or lesions noted Other: Right BKA, dressing intact without drainage, no surrounding erythema/edema. Neuro General: patient alert, patient awake, patient oriented x3 and moves all extremities Cranial Nerves: CN's II-XII intact bilaterally Psych Appearance: grossly normal Mood: congruent mood Affect: normal affect Speech and Movement: speech and movement normal Attitude: cooperative Thought Process: normal Thought Content: normal Insight: insight good Judgment: judgment good Discharge Plan Discharge Plan Patient Disposition: Home Health Services Activity: Ambulate as Tolerated Comment: Non weight bearing to right lower extremity. Diet: Diabetic Comment: 2000 calories a day, carb consistent diet. Additional Instructions: -Code status: Full code. -Activity: Non-weight bearing to right lower extremity-ok for range of motion toright hip and knee as tolerated, keep leg straight as much as possible. No driving until cleared by physician, may ride in car. Per Dr. Brandt you may use your knee scooter as you need. Be careful putting too much weight on right lowerextremity as there is a risk that surgical site could open. -Diet: Diabetic, 2000 ADA, carb consistent diet. -Continue to check your fingerstick blood sugars before meals and at bedtime. Keep a log of your blood sugars to review with your primary care provider at your follow up appointment (see below for appointment details). -Right below the knee amputation surgical site: maintain dressing. If dressing falls off reapply a dry sterile dressing and kash wrap. If you develop any new pain, redness, fever >101, or new drainage to surigcal site, notify Dr. Brandt. -Continue to wear CPAP at bedtime, as you were at home prior. Your Home Health agency is [facility] ( ). They will usually contact you the day after discharge to schedule a day/time to meet with you at your home to establish care. You have been given prescriptions for new and/or needed medications. These prescriptions are for a one-time fill only, with no re-fills. For further re- fills going forward, you will need to address with your PCP at your follow up appointment, or by calling your PCP?s office prior to the prescriptions running out. NOTE: please call within 24 hours if you need to cancel or change any follow up appointments. Arrive early to all follow up appointments, bring current medication list, photo ID and any insurance card(s) to all future follow ups (listed below). Please remember to wear a mask to all appointments. If you develop any symptoms (cough, fever/chills, shortness of breath, sore throat, nausea/vomiting, etc.) please contact your provider's office to inform them prior to your appointment. Instructions: Amputation, [id number] (DC) Stand Alone Forms: Insulin Corrective Scale #3, Insulin Custom Scale 1:15 Prescriptions: New atorvastatin 80 mg Tablet 80 mg PO QAM 30 Days Qty: 30 0RF carvedilol 6.25 mg Tablet 6.25 mg PO BID 30 Days Qty: 60 0RF allopurinol 100 mg Tablet 100 mg PO QHS 30 Days Qty: 30 0RF bumetanide 1 mg Tablet 1 mg PO BID 30 Days Qty: 60 0RF albuterol sulfate [Ventolin HFA] 90 mcg/actuation Hfa Aerosol Inhaler 2 puff inhalation DAILY PRN (Reason: asthma) 30 Days Qty: 1 0RF cholecalciferol (vitamin D3) [Vitamin D3] 125 mcg (5,000 unit) Tablet 250 mcg PO BID 30 Days Qty: 120 0RF fluticasone propion-salmeterol 232-14 mcg/actuation Aerosol Powdr Breath Activated 1 puff inhalation BID Qty: 1 0RF Coenzyme Q10 200 mg PO QAM 30 Days Qty: 30 0RF Levemir FlexTouch U-100 Insuln 100 unit/mL (3 mL) Insulin Pen 40 unit subcut QHS Qty: 3 0RF magnesium oxide 400 mg (241.3 mg magnesium) Tablet 400 mg PO QAM 30 Days Qty: 30 0RF losartan 25 mg Tablet 25 mg PO QAM 30 Days Qty: 30 0RF nitroglycerin 0.4 mg Tablet, Sublingual 0.4 mg sublingual DAILY PRN (Reason: Chest Pain) Qty: 0 0RF multivitamin with folic acid [Thera] 400 mcg Tablet 1 tab PO QAM 30 Days Qty: 30 0RF acetaminophen 500 mg Tablet 500 mg PO Q4H PRN (Reason: Pain) 30 Days Qty: 100 0RF spironolactone 25 mg Tablet 25 mg PO QAM 30 Days Qty: 30 0RF insulin aspart U-100 [Novolog Flexpen U-100 Insulin] 100 unit/mL (3 mL) Insulin Pen 1 sliding scale dose subcut TID.WM.HS Qty: 15 0RF insulin aspart U-100 [Novolog Flexpen U-100 Insulin] 100 unit/mL (3 mL) Insulin Pen See Protocol subcut TID.WITH.MEALS.HS Qty: 15 0RF Protocol: Carb Coverage Insulin 1:15 gm CHO Protocol Text: *Carb coverage 1:15* Give 1 unit of rapid-acting insulin for every 15 gm of carbohydrates eaten atmeals Eliquis 5 mg tablet 5 mg PO BID Qty: 60 0RF Discontinued multivitamin Tablet 1 tab PO QAM atorvastatin 80 mg tablet 80 mg PO QAM Label Comments: TAKE 1 TABLET BY MOUTH EVERY DAY carvedilol 6.25 mg Tablet 6.25 mg PO BID insulin glargine [Lantus U-100 Insulin] 100 unit/mL solution 40 unit SUBCUT QHS Label Comments: ADMINISTER 40 UNITS UNDER THE SKIN EVERY DAY IN THE EVENING bumetanide 2 mg tablet 2 mg PO BID prednisone 5 mg tablet 5 mg PO Q2D Label Comments: TAKE 1 TABLET BY MOUTH EVERY OTHER DAY allopurinol 100 mg Tablet 100 mg PO QHS aspirin 81 mg Tablet,Delayed Release (Dr/Ec) 81 mg PO QHS spironolactone 25 mg tablet 25 mg PO QAM Label Comments: TAKE 1 TABLET BY MOUTH EVERY DAY magnesium oxide 400 mg (241.3 mg magnesium) tablet 400 mg PO QAM Label Comments: TAKE 1 TABLET BY MOUTH DAILY ascorbic acid (vitamin C) [Vitamin C] 500 mg Tablet 500 mg PO DAILY insulin aspart U-100 100 unit/mL solution See Protocol subcut QID Protocol: Carb Coverage Insulin 1:15 gm CHO Protocol Text: *Carb coverage 1:15* Give 1 unit of rapid-acting insulin for every 15 gm of carbohydrates eaten atmeals Label Comments: ADMINISTER 10 UNITS UNDER THE SKIN BEFORE MEALS NEEDED cephalexin 500 mg capsule 500 mg PO QHS Label Comments: TAKE 1 CAPSULE BY MOUTH EVERY DAY losartan 25 mg Tablet 25 mg PO QAM nitroglycerin 0.4 mg Tablet, Sublingual 0.4 mg sublingual DAILY PRN (Reason: Chest Pain) albuterol sulfate 90 mcg/actuation Hfa Aerosol Inhaler 2 inh INHALATION DAILY PRN (Reason: asthma) cholecalciferol (vitamin D3) 250 mcg (10,000 unit) capsule 250 mcg PO BID Label Comments: TAKE 1 CAPSULE BY MOUTH THREE TIMES DAILY coenzyme Q10 200 mg Capsule 200 mg PO QAM Eliquis 5 mg Tablet 5 mg PO BID Label Comments: Hasn't started taking yet, new medication fluticasone furoate-vilanterol [Breo Ellipta] 200-25 mcg/dose Blister With Device 1 inh INHALATION QAM Xarelto 10 mg Tablet 10 mg PO DAILY Other Ambulatory Orders: Initiate Home Health (Routine) Timeframe: 20211026 Location: Determined by Patient Ordered By: Ghanshyam Kaye Follow Up: Deon Braxton DO [Primary Care Provider] - 10/31/21 4:00 pm (-PCP.) Ghanshyam Kaye MD [Active Staff] - 12/06/21 1:00 pm (-Rehab Physician. for futureprosthesis.) Reddy Brandt DO [Active Staff] - 11/14/21 11:00 am (-Surgeon.) Documented By: Chante Narayan APRN 10/27/21 1 324 Signed By: <Electronically signed by KRUNAL Narayan> 10/27/21 1334 <Electronically signed by Ghanshyam Kaye MD> 10/28/21 1030 [facility] Work Phone: Evaluation noteNo [employer] [employer] Other Evaluation note* Diagnosis Onset Date Resolution Status Below knee amputation acute Type 2 diabetes mellitus acu te [facility] Work Phone: Evaluation note* Diagnosis Onset Date Resolution Status Below knee amputation acute Type 2 diabetes mellitus acu te Below knee amputation acute CKD (chronic kidney disease), stage III acute Hyperlipidemia acute Hypertension acute Impaired mobility and activities of daily living acute Kidney failure acute GRACY on CPAP acute Type 2 diabetes mellitus acu te Below knee amputation acute Dehiscence of wound of skin acute Wound dehiscence acute [facility] Work Phone: Evaluation note* Diagnosis Onset Date Resolution Status Below knee amputation acute Dehiscence of wound of skin acute Wound dehiscence acute [facility] Work Phone: Evaluation noteNo assessment information available [facility] Work Phone: Evaluation note* Diagnosis Preop cardiovascular exam- Primary Pre-operative cardiovascular examination Coronary artery disease involving [place] coronary artery of [place] heart without angina pectoris Ischemic cardiomyopathy Other specified forms of chronic ischemic heart disease Chronic systolic congestive heart failure ([facility]) Apical mural thrombus Essential (primary) hypertension Unspecified essential hypertension Cardiac defibrillator in place- Medtronic Automatic implantable cardiac defibrillator in situ Mixed hyperlipidemia [facility]* Diagnosis Type 2 diabetes mellitus with diabetic neuropathic arthropathy, with long-term current use of insulin ([facility]) documented in this encounter Indicative SoftwareHistory general Narrative - Reported* Type Description Date Medical History DM1 Medical History HTN Medical History HYPERLIPEDEMIA Surgical History LEFT FOOT SURGERY WITH REMOVAL OF ALL FIVE TOES Surgical History heart cath with 5 stents placem ent Hospitalization History MRSA 2011 Hospitalization History [facility] Other [facility] general Narrative - Reported* Type Description Date Medical History DM1 Medical History HTN Medical History HYPERLIPEDEMIA Surgical History LEFT FOOT SURGERY WITH REMOVAL OF ALL FIVE TOES Surgical History heart cath with 5 stents placem ent Surgical History right transtibial be low-knee amputation, right fibular osteotomy 10/17/21 Hospitalization History MRSA 2011 Hospitalization History [facility] Other [facility] general Narrative - Reported* Type Description Date Medical History DM1 Medical History HTN Medical History HYPERLIPEDEMIA Medical History gall bladder disease Medical History heart disease Medical History kidney disease Medical History defibrillator Medical History stent Surgical History LEFT FOOT SURGERY WITH REMOVAL OF ALL FIVE TOES Surgical History heart cath with 5 stents placem ent Surgical History right transtibial be low-knee amputation, right fibular osteotomy 10/17/21 Hospitalization History MRSA 2011 Hospitalization History Heart Hospitalization History see above surg. hx. [address] Other InstructionsNot on filedocumented in this encounter [facility] SystemInstructionsNot on filedocumented in this encounter [facility] Purpose Family History No Family History Records Found Relationship Condition Age at Onset Recorded Date/T tariq Not Specified Type 1 diabetes mellitus Unknown father Heart disease Unknown Advance Directives No Advanced Directives Records Found Advance Directive Response Recorded Date/ Time Advance Directives No May 11:42am Advance Directive Response Recorded Date/ Time Advance Directives No May 10:42am Latest Code Status on File Code Status Date Activated Date Inactivated Comments Full Code 06/17/2020 4:39 AM 06/22/2020 4:33 PM Code Status History Code Status Date Activated Date Inactivated Comments Full Code 04/22/2020 5:42 AM 04/23/2020 4:42 PM Full Code 12/28/2018 4:48 PM 01/03/2019 11:03 PM Chief Complaint and Reason for Visit Chief Complaint M25.571 mri clearance M25.571 M86.66 osteomyelitis of Right Tibia osteomyelitis of Right Tibia Reason for Visit Below knee amputatio n Type 2 diabetes mellitus Chief Complaint M25.571 mri clearance M25.571 M86.66 osteomyelitis of Right Tibia osteomyelitis of Right Tibia right bka R leg wound post op - Sent by Dr Chelsey Eugene Right Tibia rt leg blleding recent surgery Reason for Visit Below knee amputatio n Type 2 diabetes mellitus Below knee amputation CKD (chronic kidney disease), stage III Hyperlipidemia Hypertension Impaired mobility and activities of daily living Kidney failure GRACY on CPAP Type 2 diabetes mellitus Below knee amputation Dehiscence of wound of skin Wound dehiscence Chief Complaint mri clearance M25.571 M86.66 osteomyelitis of Right Tibia osteomyelitis of Right Tibia right bka R leg wound post op - Sent by Dr Chelsey Eugene Right Tibia rt leg blleding recent surgery M86.6,Z98.890, Reason for Visit Below knee amputatio n Type 2 diabetes mellitus Below knee amputation CKD (chronic kidney disease), stage III Hyperlipidemia Hypertension Impaired mobility and activities of daily living Kidney failure GRACY on CPAP Type 2 diabetes mellitus Below knee amputation Dehiscence of wound of skin Wound dehiscence Chief Complaint Pain Osteomylitis Right Tibia rt leg blleding recent surgery M86.6,Z98.890, Reason for Visit Below knee amputatio n Dehiscence of wound of skin Wound dehiscence Chief Complaint Community mobility d riving test Reason for Referral Reason abrasion of skin Diagnosis 1 Other chronic osteom yelitis of right tibia (M86.661) Referral Organization [facility] Referring Provider First Name Reddy Referring Provider Last Name Karly Referring Provider Specialty Orthopedic Surgery Referred Organization Unknown Facility Referred Provider Specialty Wound Care Referral Priority Routine Additional Source Comments (unrecognized sect ion and content) No Status Records FoundNo Status Records FoundNo Status Records FoundNo Status Records FoundNo Status Records FoundNo Status Records FoundNo Status Records FoundNo Status Records Found INFORMATION SOURCE (unrecogn ized section and content) DATE CREATED AUTHOR 05/12/2020 [facility] DATE CREATED AUTHOR AUTHOR'S ORGANIZ ATION 05/26/2021 [facility] DATE CREATED AUTHOR AUTHOR'S ORGANIZ ATION 08/23/2021 [facility] DATE CREATED AUTHOR AUTHOR'S ORGANIZ ATION 11/02/2021 [facility] DATE CREATED AUTHOR AUTHOR'S ORGANIZ ATION 10/17/2022 [facility] DATE CREATED AUTHOR AUTHOR'S ORGANIZ ATION 03/23/2023 [facility] DATE CREATED AUTHOR AUTHOR'S ORGANIZ ATION 04/08/2023 [facility] DATE CREATED AUTHOR AUTHOR'S ORGANIZ ATION 04/15/2023 [facility] REASON FOR VISIT (unrecogniz ed section and content) Reason Comments Pre-op Exam EST PT PRE OP DR MARIXA Brown SURG DR LEE Reason Onset Date Comments Med Refill 04/13/2023 Care Teams (unrecognized sec tion and content) Team Status: Inactive Member Role Status Dates Deon Braxton DO Primary Care Provider Active Reddy Brandt DO Attending Provider Active Team Status: Inactive Member Role Status Dates Deon Braxton DO Primary Care Provider Active Reddy Brandt DO Admit Provider, Attending Provide r Active Jessy Hope , NBA Other Provider Active Marci Ruiz , NBA Other Provider Active Aliza Sorensen , RN Other Provider Active Tatiana Jasso , RN Other Provider Active Radha Frederick , RN Other Provider Active Jana Parmar RN Other Provider Active Fredi Mendez MD Other Provider Active Drea Galvin APRN Other Provider Active Julia Segura , DO Other Provider Active Armando Hanks MD Other Provider Active Golden Whatley , DO Other Provider Active Adi Feng MD Other Provider Active Letty Turpin MD Other Provider Active Faviola Matias , ANP-BC Other Provider Active Brett Muñoz MD Other Provider Active Dennis Larson MD Other Provider Active Rodriguez Loera MD Other Provider Active Cuauhtemoc Ramos MD Other Provider Active Darien Maria MD Other Provider Active Stewart Lucio MD Other Provider Active Sonido Murillo MD Other Provider Active Mai Britton , SYSTEM DISPATCHER-C Other Provider Active Christiano Evans MD Other Provider Active Isidro Antunez MD Other Provider Active Rosalind Coburn MD Other Provider Active Bill Osei MD Other Provider Active Lizbeth Mcbride , DO Other Provider Active Fabio Sanchez MD Other Provider Active Kwesi Muhammad , DO Other Provider Active Bre Patel APRN Other Provider Active Bin Carrera , DO Other Provider Active Patti Taylor MD Other Provider Active Kassandra Munoz RN Other Provider Active Team Status: Inactive Member Role Status Dates Deon Braxton , DO Primary Care Provider Active Reddy Brandt , DO Referring Provider Active Darien Bailey , SYSTEM DISPATCHER-C Attending Provider Activ e Team Status: Active Member Role Status Dates Deon Braxton , DO Primary Care Provider Active Team Status: Inactive Member Role Status Hilda Braxton , DO Primary Care Provider Active Christiano Palacios PA-C Emergency Provider Active Team Status: Inactive Member Role Status Dates Deon Braxton , DO Primary Care Provider Active Ghanshyam Kaye MD Admit Provider, Attending Provider Chris Hope , NBA Other Provider Active Marci Ruiz , NBA Other Provider Active Aliza Sorensen , NBA Other Provider Active Tatiana Jasso , NBA Other Provider Active Radha Frederick RN Other Provider Active Jana Parmar , NBA Other Provider Active Bronwyn Alegre MD Other Provider Active Fredi Mendez MD Other Provider Active Drea Galvin APRN Other Provider Active Julia Segura , DO Other Provider Active Armando Hanks MD Other Provider Active Golden Whately , DO Other Provider Active Adi Feng MD Other Provider Active Letty Turpin MD Other Provider Active Faviola Matias , ANP-BC Other Provider Active Brett Muñoz MD Other Provider Active Dennis Larson MD Other Provider Active Rodriguez Loera MD Other Provider Active Cuauhtemoc Ramos MD Other Provider Active Darien Maria MD Other Provider Active Stewart Lucio MD Other Provider Active Sonido Murillo MD Other Provider Active Mai Britton , SYSTEM DISPATCHER-C Other Provider Active Christiano Evasn MD Other Provider Active Isidro Antunez MD Other Provider Active Rosalind Coburn MD Other Provider Active Bill Osei MD Other Provider Active Lizbeth Mcbride , DO Other Provider Active Fabio Sanchez MD Other Provider Active Kwesi Muhammad , DO Other Provider Active Bre Patel APRN Other Provider Active Bin Carrera , DO Other Provider Active Patti Taylor MD Other Provider Active Kassandra Munoz , NBA Other Provider Active Team Status: Inactive Member Role Status Dates Deon Braxton , DO Primary Care Provider Active César Cortes , DO Emergency Provider Active Reddy Brandt , DO Attending Provider Active Team Status: Inactive Member Role Status Dates Deon Braxton , DO Primary Care Provider Active César Cortes , DO Emergency Provider Active Reddy Brandt , DO Admit Provider, Attending Provide r Active Program Paraprofessional Relationship Specialty Start Date End Date Deon Braxton DO [address] [id number] PCP - General Internal Medicine 01/22/17 Program Paraprofessional Relationship Specialty Start Date End Date Deon Braxton DO [address] [place] [address] PCP - General Internal Medicine 01/22/17 Goals (unrecognized section and content) Goals may be documented in a n alternate section FOR RECORDS PERTAINING TO PATIENTS WHO ARE OR HAVE BEEN ENROLLED IN A CHEMICAL DEPENDENCY/SUBSTANCEABUSE PROGRAM, SOME INFORMATION MAY BE OMITTED. This clinical summary was aggregated from multiple sources. Caution should be exercised in using it in the provision of clinical care. This summary normalizes information from multiple sources, and as a consequence, information in this document may materially change the coding, format and clinical context of patient data. In addition, data may be omitted in some cases. CLINICAL DECISIONS SHOULD BE BASED ON THE PRIMARY CLINICAL RECORDS. [facility] [address]. provides no warranty or guarantee of the accuracy or completeness of information in this document.
--- NOTE | 2023-04-16 08:07 | XR_ITS ---
[facility] [place] [id number] Patient Name: ANAI PELAYO MRN: [id number] date: 1955 Sex: M Assigned Patient Location: [facility] Current Patient Location: [facility] Accession/Order Number: [id number] Exam Date: 04/16/2023 08:50 Report Date: 04/16/2023 09:06 At the request of: SALINA LEE Procedure: XR chest 2V EXAM: XR chest 2V HISTORY: Preop exam COMPARISON: Chest study dated 05/05/2020 TECHNIQUE: PA and lateral views of the chest were obtained. FINDINGS: Heart is within the upper limits of normal for size. Pacemaker seen on the left similar to prior study. No acute infiltrate or consolidations are seen. [id number] degenerative changes in the dorsal spine. Mild degenerative changes about the shoulders. XR/XR chest 2V IMPRESSION: No acute process seen in the chest. Electronically authenticated by: ALISE EPPERSON Date: 04/16/2023 09:06
[2023-04-16 09:01] LABS: Anion Gap 10.6; BUN Creatinine Ratio 25.6; Calcium 8.9 mg/dL (8.5-10.1); Carbon Dioxide 29.5 mmol/L (21.0-32.0); Chloride 104 mmol/L (98-107); Estimated GFR (African America 47 (>=60); Estimated GFR (Non-African Ame 39 (>=60); Glucose 169 mg/dL (74-106); Potassium 4.1 mmol/L (3.5-5.1); Sodium 140 mmol/L (136-145)
[2023-04-16 09:11] LABS: Basophils Percent Auto 0.4 % (0.2-2.0); Eosinophils Absolute Auto 0.3 10^3/uL (0.0-0.7); Eosinophils Percent Auto 5.1 % (0.9-7.0); Hematocrit 40.4 % (42.0-54.0); Hemoglobin 13.2 g/dL (14.0-18.0); Immature Granulocytes Abs Auto 0.02 10^3/uL (0.00-0.03); Immature Granulocytes Pct Auto 0.4 % (0.0-0.5); Lymphocytes Absolute Auto 0.8 10^3/uL (1.2-3.8); Lymphocytes Percent Auto 13.3 % (20.5-60.0); Mean Corpuscular HGB Conc 32.7 g/dL (29.9-35.2); Mean Corpuscular Hemoglobin 30.7 pg (25.9-34.0); Mean Platelet Volume 10.9 fL (9.5-13.5); Monocytes Absolute Auto 0.6 10^3/uL (0.3-0.8); Neutrophils Absolute Auto 3.9 10^3/uL (1.4-6.5); Neutrophils Percent Auto 69.8 % (43.0-75.0); Platelet Count 114 10^3/uL (150-450); Red Cell Distribution Width 15.6 % (11.0-15.0); White Blood Count 5.6 10^3/uL (4.0-11.0)
[2023-04-16 09:35] LABS: INR 1.07; Partial Thromboplastin Time 27.5 sec (22.3-36.2); Prothrombin Time 11.3 sec (9.0-11.6)
== END 2023-04-16 07:51 | disposition home or self-care (01) ==
LOC: PST 07:52
PROVIDERS: PCP Internal Medicine; Visit Provider Podiatrist Foot & Ankle Surgery
DX: Z01.812 Encounter for preprocedural laboratory examination (principal); L97.324 Non-pressure chronic ulcer of left ankle with necrosis of bone; M86.272 Subacute osteomyelitis, left ankle and foot; E11.9 Type 2 diabetes mellitus without complications; Z79.01 Long term (current) use of anticoagulants; I25.10 Atherosclerotic heart disease of native coronary artery without angina pectoris
CPT/HCPCS: 71046; 80048; 85025; 85610; 85730

== ENCOUNTER 2023-04-16 07:56 | Outpatient (OUT) | payer MEDICARE, SELFPAY ==
--- OUTSIDE RECORDS SUMMARY | 2023-04-16 07:59 | XMS_ITS | CCD ---
Author Name Unknown Address [address] [place] [address] Organization [facility] Care Team Providers Care Information Security Officer Name Role Phone IRAIS, DEON ESPINO Primary [...] Unavailable DO Deon Braxton Primary Care Provider [phone] DO Reddy Brandt Attending Provider DO Reddy Brandt Referring Provider [phone] CRISTINA Bailey Attending Provider DO Reddy Brandt Admit Provider NBA Hope Other Provider Unavailable NBA Ruiz Other Provider Unavailable NBA Sorensen Other Provider Unavailable NBA Jasso Other Provider Unavailable NBA Frederick Other Provider Unavailable NBA Parmar Other Provider Unavailable MD Fredi Mendez Other Provider KRUNAL Galvin Other Provider DO Julia Segura Other Provider [phone] MD Armando Hanks Other Provider DO Golden Whatley Other Provider MD Adi Feng Other Provider [phone] MD Letty Turpin Other Provider Polly ANP-BC Faviola Other Provider MD Brett Muñoz Other Provider MD Dennis Larson Other Provider MD Rodriguez Loera Other Provider MD Cuauhtemoc Ramos Other Provider MD Darien Maria Other Provider MD Stewart Lucio Other Provider MD Sonido Murillo Other Provider Reba, UKRA[employer]IAN [employer]CTOR-C Mai Vega Other Provider MD Christiano Evans Other Provider MD Isidro [...] e YUMARVAS, DR CHAVARRIA Primary Care Unavailable YUKAI, DR CHAVARRIA Primary Care Unavailable LEON, DR [...] Admitting Unavailable JESUS, SALINA Walker Attending Unavailable YUAKI, DR CHAVARRIA Primary Care Unavailable SALINA LEE [...] YUMARVAS, DR CHAVARRIA Primary Care Unavailable CLOBALJEET SIERAR Attending Unavailabl e CLOBALJEET SIERRA Admitting Unavailabl [...] Admitting Unavailable HIGHLANDER, SALINA Walker Attending Unavailable EL RITO, DR ANAI Edmond Consulting Unavailable HIGHLANDER, SALINA Walker Admitting Unavailable YUHAS, DR CHAVARRIA Primary Care Unavailable HIGHLANDER, SALINA Walker Consulting Unavailable HIGHLANDER, SALINA Walker Attending Unavailable HIGHLANDER, SALINA Walker Admitting Unavailable YUHAS, DR CHAVARRIA Primary Care Unavailable ZIER, DR ARLEN Patel Consulting Unavailable [facility] SAL[facility] Walker Consulting Unavailable HIGHLANDER, SALINA Walker Attending Unavailable HIGHLANDER, SALINA Walker Admitting Unavailable YUHAS, DR CHAVARRIA Primary Care Unavailable HIGHLANDER, SALINA Walker Attending Unavailable HIGHLSALINA HURST Admitting Unavailable YUHAS, DR CHAVARRIA Primary Care Unavailable [facility], SALINA Walker Attending Unavailable YUMARVAS, DR CHAVARRIA Primary Care Unavailable HIGHLANDER, SALINA Walker Admitting Unavailable HIGHLANDER, SALINA Walker Attending Unavailable YUHAS, DR CHAVARRIA Primary Care Unavailable HIGHLANDER, SALINA Walker Consulting Unavailable [facility], SALINA Walker Admitting Unavailable CLOUNAERTY, BALJEET O Attending Unavailabl e CLOUNAERTYBALJEET Admitting Unavailabl e IRAIS, DR CHAVARRIA Primary Care Unavailable ADNIAERTY, BALJEET O Admitting Unavailabl e CLOUGHERTY, BALJEET O Attending Unavailabl e YUKAI, DR CHAVARRIA Primary Care Unavailable CLOUGHERTY, BALJEET O Admitting Unavailabl e CLOUGHERTY, BALJEET O Attending Unavailabl e IRAIS, DR CHAVARRIA Primary Care Unavailable IRAIS, DR CHAVARRIA Primary Care Unavailable HIGHLANDER, SALINA Walker Attending Unavailable HIGHLARIS, SALINA Walker Admitting Unavailable CLOUGHERTY, DELONG O Admitting Unavailabl e CLOUGHERTY, DELONG O Attending Unavailabl e IRAIS, DR CHAVARRIA Primary Care Unavailable CLOMARIELA, BALJEET [...] Patel Consulting Unavailable SALOME, SANTOS Consulting Unavailable JEUSS, SALINA Walker Consulting Unavailable AGUBOSIM, MICHELA Consulting [...] Admit Provider MD Ghanshyam Kaye Attending Provider [phone] MD Bronwyn Alegre Other Provider ROHIT Palacios Emergency Provider [phone] Sebastian DO César Vega Emergency Provider Yumarvas, DO Chavarria Primary Care Provider DO Reddy Brandt A Attending Provider Yuhas, DO Deon Primary Care Provider [phone] DO Karly Reddy A Attending Provider Cortes, DO César Vega Emergency Provider [phone] Karly, Reddy A Admit Provider VargasGhanshyam Unavailable Yuhas, DO Chavarria Primary Care Provider DO Karly Reddy A Attending Provider [phone] Dung Serna Unavailable Dung Serna Admitting Unavailable Dung Serna Attending Unavailable [facility] Primary Care Unavailable Karly, Reddy A Attending Unavailable Karly, Reddy A Admitting Unavailable [facility] Primary Care Unavailable [facility] Primary Care Unavailable Karly, Reddy A Admitting Unavailable Karly, Reddy A Attending Unavailable Karly, Reddy A Attending Unavailable [facility] Primary Care Unavailable Karly, Reddy A Admitting Unavailable Karly, Reddy A Admitting Unavailable [facility] Primary Care Unavailable Karly, Reddy A [...] Munoz Consulting Unavailable Ghanshyam Kaye Admitting Unavailable [facility] Primary Care Unavailable Ghanshyam Kaye Attending [...] M Consulting Unavailable Munoz, Kassandra Consulting Unavailable [facility] Primary Care Unavailable Christiano Palacios Attending Unavailable Christiano Palacios Admitting Unavailable Reddy Brandt Attending Unavailable Reddy Brandt Admitting Unavailable [facility] Deon Primary Care Unavailable Reddy Brandt Admitting Unavailable [facility] Primary Care Unavailable Reddy Brandt Attending [...] Chlorpheniramine; Translations: [chlorpheniramine] Drug Allergy 07-02-19 21 [facility] Repository (14 sources) Dextromethorphan; Translations: [dextromethorphan] Drug Allergy 10-19-19 22 Unknown Reaction [facility] Repository (20 sources) Doxycycline; Translations: [doxycycline] Drug Allergy 04-02-19 21 FELT LIKE A HEART ATTACK, Chest Pain [facility] Repository (17 sources) guaiFENesin; Translations: [guaiFENesin] Drug Allergy 04-14-19 16 [facility] Repository (17 sources) levoFLOXacin; Translations: [levoFLOXacin] Drug Allergy 04-02-19 21 Chest Pain [facility] Repository (18 sources) Phenylephrine; Translations: [phenylephrine] Drug Allergy 07-02-19 21 Unknown Reaction [facility] Repository (1 source) Tussionex [employer]; Translations: [Tussionex [employer]] Propensity to adverse reactions to drug (disorder) [facility] Repository (20 sources) Tussin Drug allergy [facility] Other (15 sources) HYDROcodone; Translations: [hydrocodone] Drug Allergy 10-19-19 22 [facility] (4 sources) Chlorpheniramine / HYDROcodone; Translations: [TUSSIONEX] Drug Allergy [facility] Repository (4 sources) Dextromethorphan; Translations: [DEXTROMETHORPHAN HBR] Drug Allergy 10-18-19 23 Itching [facility] Repository (4 sources) UCTCMVUOX-PW-DJNIHA INOPHEN; Translations: [YPCDPWVWU-BC-BRIAM MINOPHEN] Propensity to adverse reactions to drug (disorder) 02-04-20 22 [facility] Repository (2 sources) Chlorpheniramine / HYDROcodone Drug Allergy Itching [facility] Medications Current Medications Medication Drug Class(es) Dates Sig (Normalized) Sig (Original) acetaminophen 500 mg oral tablet (13 sources) Start: 10-27-2021 take 500 mg by mouth every four hours Acetaminophen Active 500 MG PO Q4H 100 October 26, 2021 11:00pm take 1 capsule by mouth every si x hours Acetaminophen 500 MG 1 capsule as needed Orally every 6 hrs Active [id number] 200 actuat albuterol 0.09 mg/actuat metered dose [...] mL nebulizer Indications: COPD with acute exacerbation ([facility]) USE 3 ML VIA NEBULIZER FOUR TIMES [...] tablet Indications: Chronic systolic congestive heart failure ([facility]) Take 1 tablet (10 mg total) by [...] arthropathy, with long-term current use of insulin ([facility]) CHANGE EVERY 2 WEEKS DIRECTED 6 kit [...] arthropathy, with long-term current use of insulin ([facility]) Inject 15 Units under the skin in [...] tablet by michael th every twenty-four hours spironolactone 25 mg [...] myocardial infarction; Translations: [Atherosclerotic heart disease of [place] coronary artery without angina pectoris] Onset: 11-23-2017 [...] sources) Long-term current use of insulin; Translations: [director long term care (current) use of insulin] Episodic Other and [...] Onset: 01-18-2021 Episodic Other aftercare (1 source) director long term care (current) use of aspirin; Translations: [RESERVATION AGENT CURRENT USE OF ASPIRIN] Onset: 03-02-2021 Episodic Other aftercare (1 source) longterm (current) use of insulin; Translations: [RESERVATION AGENT CURRENT USE OF INSULIN] Onset: 03-02-2021 Episodic Other aftercare (1 source) Other assisted (current) drug therapy; Translations: [OTH RESERVATION AGENT CURRENT DRUG THERAPY] Onset: 03-02-2021 Episodic Other [...] Name Value Interpretation Reference Range [facility] MR ANKLE LT W WO CONTon -0 [...] Bennett MD on 04/05/2023 8:50 AM Normal [facility] XR cervical spine 2Von 10-05 XR cervical spine 2V [facility] Main [place] [address] [place] [address] XRay Report Signed Patient: Anai Goodman MR#: [id number] : 1955 Acct:[id number] Age/Sex: 66 / M ADM Date: 10/05/22 Loc: D Room: Type: [facility] Attending Dr: Dung Serna MD Copies to: [...] Jose Sanabria M.D.10/05/2022 12:36 PM Dictation Location: [place] [address] Transcribed By: [facility] 10/05/22 1236 Dictated By: Jose Sanabria DO 10/05/22 1233 Signed By: 10/05/22 1236 [facility] Basic Metabolic Panelon 3 Anion gap [Moles/Vol] 12.0 mmol/L Normal 6.0-15.0 [facility] Comment on above: Performed By: #### C BC, BMP #### [facility] [address] Calcium [Mass/Vol] 10.0 mg/dL Normal 8.2-10.2 [facility] Comment on above: Performed By: #### C BC, BMP #### [facility] [address] [place] [address] [place] Chloride [Moles/Vol] 100 mmol/L Normal 95-114 [facility] Comment on above: Performed By: #### C BC, BMP #### [facility] [address] CO2 [Moles/Vol] 30.0 mmol/L Normal 22.0-30.0 [facility] Comment on above: Performed By: #### C BC, BMP #### [facility] [address] [place] [address] [place] Creatinine [Mass/Vol] 1.38 mg/dL High 0.64-1.27 [facility] Comment on above: Performed By: #### C BC, BMP #### [facility] [address] [place] [address] [place] Creatinine Clr Calc Pharmacy 66.84 [facility] Comment on above: Result Comment: PERF ORMED BY: [place] [address] PATHOLOGIST BUTCHER SUPERVISOR SESAR YOST M.D. Performed By: #### C BC, BMP #### [address] Estimated GFR ( Christal > 60 [facility] Comment on above: Result Comment: GFR estimated reference range: According to KDOQI guidelines, <60 ml/min/1.73m2 is sufficient to diagnose a patient with chronic kidney disease. Performed By: #### C BC, BMP #### [address] Estimated GFR (Non- Am 52 [facility] Comment on above: Performed By: #### C BC, BMP #### [address] Glucose [Mass/Vol] 130 mg/dL High 70-100 [facility] Comment on above: Result Comment: [place] Glucose Reference Range is dependent on time and content of last meal. Glucose of more than 200 mg/dL in a nonstressed, ambulatory subject supports the diagnosis of Diabetes Mellitus. ADA recommended reference range Performed By: #### C BC, BMP #### [address] Potassium [Moles/Vol] 4.0 mmol/L Normal 3.5-5.1 [facility] Comment on above: Performed By: #### C BC, BMP #### [address] Sodium [Moles/Vol] 138 mmol/L Normal 136-146 [facility] Comment on above: Performed By: #### C BC, BMP #### [address] Urea nitrogen [Mass/Vol] 22 mg/dL Normal 9-23 [facility] Comment on above: Performed By: #### C BC, BMP #### [address] Basophils Auto (Bld) [#/Vol] Ordered By: Spenser Elaine on 11-29-2021 Basophils (Bld) [#/Vol] 0.0 10*3/uL 0.0-0.2 [facility] Basophils/100 WBC Auto (Bld) Ordered By: Spenser Elaine on 11-29-2021 Basophils/100 WBC (Bld) 0.5 % . F [facility] Blood hemoglobin measurement (mass/volume)Ordered By: Spenser Elaine on 11-29-2021 Hemoglobin (Bld) [Mass/Vol] 12.6 g/dL 13.0-17.0 [facility] Blood leukocytes automated c ount (number/volume)Ordered By: Spenser Elaine on 11-29-2021 WBC (Bld) [#/Vol] 6.8 10*3/uL 4.5-11.0 [facility] COVID CepheidOrdered By: Junior Cortes on 11-29-2021 SARS-CoV-2 (COVID-19) Ab IA Ql Negative Negative [facility] Comment on above: This is a duplicate Cepheid Xpert Xpress CoV-2/Flu/RSV Plus RNA by RT-PCR result to be used for statistical tracking purpose only. SARS-CoV-2 (COVID-19) RNA MEREDITH+probe Ql (Unsp spec) [facility] COVID-19 / Flu A/B / RSV [...] or Cepheid Disclaimer revoked sooner. PERFORMED BY: [place] [address] PATHOLOGIST BUTCHER SUPERVISOR SESAR YOST M.D. Normal [facility] Comment on above: Performed By: #### C OVID19 FLU RSV, CEPHEID NEG #### [facility] [address] [place], [place] [id number] [facility] Cepheid COVID PCR Negativeon 11-29-2021 SARS-CoV-2 (COVID-19) RNA MEREDITH+probe Ql (Unsp spec) Negative Normal Negative [facility] Comment on above: Result Comment: This is a duplicate Cepheid Xpert Xpress CoV-2/Flu/RSV Plus RNA by RT-PCR result to be used for statistical tracking purpose only. PERFORMED BY: [place] [address] PATHOLOGIST BUTCHER SUPERVISOR SESAR YOST M.D. Performed By: #### C OVID19 FLU RSV, CEPHEID NEG #### [place] [id number] [facility] Complete Blood Count Auto Di ffon 11-29-2021 Basophils (Bld) [#/Vol] 0.0 10*3/uL Normal 0.0-0.2 [facility] Comment on above: Result Comment: PERF ORMED BY: [place] [address] PATHOLOGIST BUTCHER SUPERVISOR SESAR YOST M.D. Performed By: #### C BC, BMP #### [facility] [address] Basophils/100 WBC (Bld) 0.5 % Normal . F [facility] Comment on above: Performed By: #### C BC, BMP #### [facility] [address] [place] [address] [place] Eosinophils (Bld) [#/Vol] 0.5 10*3/uL High 0.0-0.45 [facility] Comment on above: Performed By: #### C BC, BMP #### [address] Eosinophils/100 WBC (Bld) 7.5 % Normal . [facility] Comment on above: Performed By: #### C BC, BMP #### [address] Erythrocyte distribution width (RBC) [Ratio] 15.7 % High 12.0-14.8 [facility] Comment on above: Performed By: #### C BC, BMP #### [address] Hematocrit (Bld) [Volume fraction] 38.3 % Low 38.8-50.0 [facility] Comment on above: Performed By: #### C BC, BMP #### [facility] [address] [place] [address] [place] Hemoglobin (Bld) [Mass/Vol] 12.6 g/dL Low 13.0-17.0 [facility] Comment on above: Performed By: #### C BC, BMP #### [address] Lymphocytes (Bld) [#/Vol] 0.6 10*3/uL Low 1.00-4.8 [facility] Comment on above: Performed By: #### C BC, BMP #### [facility] [address] [place] [address] [place] Lymphocytes/100 WBC (Bld) 9.0 % Normal . [facility] Comment on above: Performed By: #### C BC, BMP #### [facility] [address] [place] [id number] [facility] MCH (RBC) [Entitic mass] 27.6 pg Normal 27.5-35.2 [facility] Comment on above: Performed By: #### C BC, BMP #### [facility] [address] MCV (RBC) [Entitic vol] 84.3 fL Normal 83.5-101 F [facility] Comment on above: Performed By: #### C BC, BMP #### [facility] [address] Mean Corpuscular HGB Conc 32.8 g/dL Normal 32.5-35.6 [facility] Comment on above: Performed By: #### C BC, BMP #### [facility] [address] [place] [address] [place] Monocytes (Bld) [#/Vol] 0.7 10*3/uL Normal 0.0-0.8 [facility] Comment on above: Performed By: #### C BC, BMP #### [facility] [address] [place] [address] [place] Monocytes/100 WBC (Bld) 10.9 % Normal . F [facility] Comment on above: Performed By: #### C BC, BMP #### [facility] [address] [place] [id number] [place] Neutrophils (Bld) [#/Vol] 4.9 10*3/uL Normal 1.8-7.7 [facility] Comment on above: Performed By: #### C BC, BMP #### [facility] [address] [place] [id number] [place] Neutrophils/100 WBC (Bld) 72.1 % Normal . [facility] Comment on above: Performed By: #### C BC, BMP #### [facility] [address] [place] [address] [place] Nucleated RBC/100 WBC (Bld) [Ratio] 0.0 % Normal 0-0.5 [facility] Comment on above: Performed By: #### C BC, BMP #### [facility] [address] Platelet mean volume (Bld) [Entitic vol] 9.3 fL Normal 6.6-10.1 [facility] Comment on above: Performed By: #### C BC, BMP #### [facility] [address] [place] [address] [place] Platelets (Bld) [#/Vol] 142 10*3/uL Low 150-450 [facility] Comment on above: Performed By: #### C BC, BMP #### [facility] [address] RBC (Bld) [#/Vol] 4.54 10*6/uL Normal 3.90-5.60 [facility] Comment on above: Performed By: #### C BC, BMP #### [facility] [address] [place] [address] [place] WBC (Bld) [#/Vol] 6.8 10*3/uL Normal 4.5-11.0 [facility] Comment on above: Performed By: #### C BC, BMP #### [address] Creatinine and Glomerular fi ltration rate.predicted panel (S/P/Bld)Ordered By: Spenser Elaine on 11-29-2021 Creatinine [Mass/Vol] 1.38 mg/dL 0.64-1.27 [facility] ECG 12 lead ECGon 11-29-2021 ECG 12 lead ECG [facility] Main [place] [address] [place] [address] Electrocardiograph Report Signed Patient: Anai Goodman MR#: [id number] : 1955 Acct:[id number] Age/Sex: 66 / M ADM Date: 11/29/21 Loc: Room: 1Y7032-9 Type: DIS IN Attending Dr: Reddy Brandt [...] By Jose Ovalle DO 11/29 1629 Normal [facility] Eosinophils Auto (Bld) [#/Vo l]Ordered By: Spenser Elaine on 11-29-2021 Eosinophils (Bld) [#/Vol] 0.5 10*3/uL 0.0-0.45 [facility] Eosinophils/100 WBC Auto (Bl d)Ordered By: Spenser Elaine on 11-29-2021 Eosinophils/100 WBC (Bld) 7.5 % . [facility] Erythrocyte distribution wid th Auto (RBC) [Ratio]Ordered By: Spenser Elaine on 11-29-2021 Erythrocyte distribution width (RBC) [Ratio] 15.7 % 12.0-14.8 [facility] Estimated glomerular filtrat ion rate (GFR) non- AmericanOrdered By: Spenser Elaine on 11-29-2021 GFR/1.73 sq M.predicted among non-blacks MDRD (S/P/Bld) [Vol rate/Area] 52 mL/Min [facility] Glucose Glucometer (BldC) [M ass/Vol]Ordered By: Reddy Brandt on 11-29-2021 Glucose [Mass/Vol] 141 mg/dL [facility] Comment on above: Random Glucose Refer ence Range is dependent on time and content of last meal. Glucose of more than 200 mg/dL in a nonstressed, ambulatory subject supports the diagnosis of Diabetes Mellitus. Glucose Poct Glucometerson 0 11-29-2021 Commemt1 Glu2: Cleaned Meter Normal [facility] Comment on above: Result Comment: PERF ORMED BY: [place] [address] PATHOLOGIST BUTCHER SUPERVISOR SESAR YOST M.D. Performed By: #### C OVID19 FLU RSV, CEPHEID NEG #### [facility] [address] Glucose [Mass/Vol] 141 mg/dL Normal [facility] Comment on above: Result Comment: [place] om Glucose Reference Range is dependent on time and content of last meal. Glucose of more than 200 mg/dL in a nonstressed, ambulatory subject supports the diagnosis of Diabetes Mellitus. Performed By: #### C OVID19 FLU RSV, CEPHEID NEG #### [facility] [address] Hematocrit Auto (Bld) [Volum e fraction]Ordered By: Spenser Elaine on 11-29-2021 Hematocrit (Bld) [Volume fraction] 38.3 % 38.8-50.0 [facility] - Hematology and Cell countsOrdered By: Spenser Elaine on 11-29-2021 Nucleated RBC/100 WBC (Bld) [Ratio] 0.0 % 0-0.5 [facility] - Microbiology an d Antimicrobial susceptibilityOrdered By: César Cortes on 11-29-2021 SARS-CoV-2 (COVID-19) RNA MEREDITH+probe Ql (Unsp spec) N/A [facility] Lymphocytes Auto (Bld) [#/Vo l]Ordered By: Spenser Elaine on 11-29-2021 Lymphocytes (Bld) [#/Vol] 0.6 10*3/uL 1.00-4.8 [facility] Lymphocytes/100 WBC Auto (Bl d)Ordered By: Spenser Elaine on 11-29-2021 Lymphocytes/100 WBC (Bld) 9.0 % . [facility] MCH Auto (RBC) [Entitic mass ]Ordered By: Spenser Elaine on 11-29-2021 MCH (RBC) [Entitic mass] 27.6 pg 27.5-35.2 [facility] MCHC Auto (RBC) [Mass/Vol]Or dered By: Spenser Elaine on 11-29-2021 MCHC (RBC) [Mass/Vol] 32.8 g/dL 32.5-35.6 Fir [facility] MCV Auto (RBC) [Entitic vol] Ordered By: Spenser Elaine on 11-29-2021 MCV (RBC) [Entitic vol] 84.3 fL 83.5-101 F [facility] Monocytes Auto (Bld) [#/Vol] Ordered By: Spenser Elaine on 11-29-2021 Monocytes (Bld) [#/Vol] 0.7 10*3/uL 0.0-0.8 [facility] Monocytes/100 WBC Auto (Bld) Ordered By: Spenser Elaine on 11-29-2021 Monocytes/100 WBC (Bld) 10.9 % . F [facility] Neutrophils Auto (Bld) [#/Vo l]Ordered By: Spenser Elaine on 11-29-2021 Neutrophils (Bld) [#/Vol] 4.9 10*3/uL 1.8-7.7 [facility] Neutrophils/100 WBC Auto (Bl d)Ordered By: Spenser Elaine on 11-29-2021 Neutrophils/100 WBC (Bld) 72.1 % . [facility] No Panel InformationOrdered By: Reddy Brandt on 11-29-2021 Bedside Glucose Comment Glu2: cleaned meter [facility] No Panel InformationOrdered By: Spenser Elaine on 11-29-2021 Estimated GFR () > 60 mL/Min [facility] Comment on above: GFR estimated refere nce range: According to KDOQI guidelines, <60 ml/min/1.73m2 is sufficient to diagnose a patient with chronic kidney disease. Pharmacy Creatinine Clearance (Chem 66.84 [facility] Platelet mean volume Auto (B ld) [Entitic vol]Ordered By: Spenser Elaine on 11-29-2021 Platelet mean volume (Bld) [Entitic vol] 9.3 fL 6.6-10.1 [facility] Platelets Auto (Bld) [#/Vol] Ordered By: Spenser Elaine on 11-29-2021 Platelets (Bld) [#/Vol] 142 10*3/uL 150-450 [facility] RBC Auto (Bld) [#/Vol]Ordere d By: Spenser Elaine on 11-29-2021 RBC (Bld) [#/Vol] 4.54 10*6/uL 3.90-5.60 [facility] Serum or plasma anion gap de terminationOrdered By: Spenser Elaine on 11-29-2021 Anion gap [Moles/Vol] 12.0 mmol/L 6.0-15.0 [facility] Serum or plasma calcium sergei urement (mass/volume)Ordered By: Spenser Elaine on 11-29-2021 Calcium [Mass/Vol] 10.0 mg/dL 8.2-10.2 [facility] Serum or plasma chloride zofia surement (moles/volume)Ordered By: Spenser Elaine on 11-29-2021 Chloride [Moles/Vol] 100 mmol/L 95-114 [facility] Serum or plasma glucose sergei urement (mass/volume)Ordered By: Spenser Elaine on 11-29-2021 Glucose [Mass/Vol] 130 mg/dL 70-100 [facility] Comment on above: ADA recommended refe rence [...] on 11-29-2021 Potassium [Moles/Vol] 4.0 mmol/L 3.5-5.1 [facility] Serum or plasma sodium measu rement (moles/volume)Ordered By: Spenser Elaine on 11-29-2021 Sodium [Moles/Vol] 138 mmol/L 136-146 [facility] Serum or plasma total carbon dioxide measurement (moles/volume)Ordered By: Spenser Elaine on 11-29-2021 CO2 [Moles/Vol] 30.0 mmol/L 22.0-30.0 [facility] Serum or plasma urea nitroge n measurement (mass/volume)Ordered By: Spenser Elaine on 11-29-2021 Urea nitrogen [Mass/Vol] 22 mg/dL 12-23 [facility] Glucose Glucometer (BldC) [M ass/Vol]Ordered By: Reddy Brandt on 11-03-2021 Glucose [Mass/Vol] 174 mg/dL [facility] Comment on above: Random Glucose Refer ence Range is dependent on time and content of last meal. Glucose of more than 200 mg/dL in a nonstressed, ambulatory subject supports the diagnosis of Diabetes Mellitus. Glucose Poct Glucometerson 0 11-03-2021 Commemt1 Glu2: Cleaned Meter Normal [facility] Comment on above: Result Comment: PERF ORMED BY: [facility] [address] [place] [address] PATHOLOGIST BUTCHER SUPERVISOR SESAR YOST M.D. Performed By: #### G LULS ####Point of Care testing, Glucose [Mass/Vol] 174 mg/dL Normal [facility] Comment on above: Result Comment: [place] Glucose Reference Range is dependent on time and content of last meal. Glucose of more than 200 mg/dL in a nonstressed, ambulatory subject supports the diagnosis of Diabetes Mellitus. Performed By: #### G LULS ####Point of Care testing, No Panel InformationOrdered By: Reddy Brandt on 11-03-2021 Bedside Glucose Comment Glu2: cleaned meter [facility] COVID-19 FRMCon 11-02-2021 SARS-CoV-2 (COVID-19) RNA MEREDITH+probe Ql (Unsp spec) Negative Normal Negative [facility] Comment on above: Order Comment: Healt hcare Worker?: N Result Comment: Testing for SARS-CoV-2 by RT-PCR This test was developed and its performance characteristics determined by [employer]) and validated at the [facility]. This test has not been FDA [...] is terminated or revoked sooner. PERFORMED BY: [place] [address] PATHOLOGIST BUTCHER SUPERVISOR SESAR YOST M.D. Performed By: #### C OVID19 FLU RSV, CEPHEID NEG #### [address] COVID-19 Positive/NegativeOr dered By: Reddy Brandt on 11-02-2021 SARS-CoV-2 (COVID-19) N gene MEREDITH+probe Ql (Resp) Negative Negative [facility] Comment on above: Testing for SARS-CoV -2 by RT-PCR This test was developed and its performance characteristics determined by [employer] ([employer]) and validated at the [facility]. This test has not been FDA [...] and its performance characteristics determined by [employer] ([employer]) and validated at the [facility]. This test has not been FDA [...] Kaye on 10-27-2021 Glucose [Mass/Vol] 166 mg/dL [facility] Comment on above: Random Glucose Refer ence Range is dependent on time and content of last meal. Glucose of more than 200 mg/dL in a nonstressed, ambulatory subject supports the diagnosis of Diabetes Mellitus. Glucose Poct Glucometerson 0 10-27-2021 Commemt1 Glu2: Cleaned Meter [facility] Comment on above: Result Comment: PERF ORMED BY: [facility] [address] [place] [address] PATHOLOGIST BUTCHER SUPERVISOR SESAR YOST M.D. Performed By: #### G LULS ####Point of Care testing, Glucose [Mass/Vol] 166 mg/dL Normal [facility] Comment on above: Result Comment: [facility] Glucose Reference Range is dependent on time and content of last meal. Glucose of more than 200 mg/dL in a nonstressed, ambulatory subject supports the diagnosis of Diabetes Mellitus. Performed By: #### G LULS ####Point of Care testing, Commemt1 Glu2: Cleaned Meter [facility] Comment on above: Result Comment: PERF ORMED BY: [address] [place] [address] PATHOLOGIST BUTCHER SUPERVISOR SESAR YOST M.D. Performed By: #### G LULS ####Point of Care testing, Glucose [Mass/Vol] 103 mg/dL Normal [facility] Comment on above: Result Comment: [place] Glucose Reference Range is dependent on time and content of last meal. Glucose of more than 200 mg/dL in a nonstressed, ambulatory subject supports the diagnosis of Diabetes Mellitus. Performed By: #### G LULS ####Point of Care testing, No Panel InformationOrdered By: Ghanshyam Kaye on 10-27-2021 Bedside Glucose Comment Glu2: cleaned meter [facility] Glucose Poct Glucometerson 0 10-26-2021 Glucose [Mass/Vol] 257 mg/dL Normal [facility] Comment on above: Result Comment: [place] om Glucose Reference Range is dependent on time and content of last meal. Glucose of more than 200 mg/dL in a nonstressed, ambulatory subject supports the diagnosis of Diabetes Mellitus. PERFORMED BY: [place] [address] PATHOLOGIST BUTCHER SUPERVISOR SESAR YOST M.D. Performed By: #### G LULS ####Point of Care testing, Commemt1 Glu2: Cleaned Meter [facility] Comment on above: Result Comment: PERF ORMED BY: [place] [address] PATHOLOGIST BUTCHER SUPERVISOR SESAR YOST M.D. Performed By: #### A ERC #### [address] Glucose [Mass/Vol] 197 mg/dL Normal [facility] Comment on above: Result Comment: [place] om Glucose Reference Range is dependent on time and content of last meal. Glucose of more than 200 mg/dL in a nonstressed, ambulatory subject supports the diagnosis of Diabetes Mellitus. Performed By: #### A ERC #### [place] [address] [place] Commemt1 Glu2: Cleaned Meter Normal [facility] Comment on above: Result Comment: PERF ORMED BY: [place] [address] PATHOLOGIST BUTCHER SUPERVISOR SESAR YOST M.D. Performed By: #### C OVID19 FLU RSV, CEPHEID NEG #### [facility] [address] Glucose [Mass/Vol] 144 mg/dL Normal [facility] Comment on above: Result Comment: [place] Glucose Reference Range is dependent on time and content of last meal. Glucose of more than 200 mg/dL in a nonstressed, ambulatory subject supports the diagnosis of Diabetes Mellitus. Performed By: #### C OVID19 FLU RSV, CEPHEID NEG #### [address] Commemt1 Glu2: Cleaned Meter Normal [facility] Comment on above: Result Comment: PERF ORMED BY: [place] [address] PATHOLOGIST BUTCHER SUPERVISOR SESAR YOST M.D. Performed By: #### C OVID19 FLU RSV, CEPHEID NEG #### [address] Glucose [Mass/Vol] 102 mg/dL Normal [facility] Comment on above: Result Comment: [place] Glucose Reference Range is dependent on time and content of last meal. Glucose of more than 200 mg/dL in a nonstressed, ambulatory subject supports the diagnosis of Diabetes Mellitus. Performed By: #### C OVID19 FLU RSV, CEPHEID NEG #### [facility] [address] Basic Metabolic Panelon 07-2 Calcium [Mass/Vol] 9.1 mg/dL Normal 8.2-10.2 [facility] Comment on above: Performed By: #### A ERC #### [facility] [address] [place] [address] [place] Chloride [Moles/Vol] 102 mmol/L Normal 95-114 [facility] Comment on above: Performed By: #### A ERC #### [facility] [address] CO2 [Moles/Vol] 25.8 mmol/L Normal 22.0-30.0 [facility] Comment on above: Performed By: #### A ERC #### [facility] [address] Creatinine [Mass/Vol] 1.24 mg/dL Normal 0.64-1.27 [facility] Comment on above: Performed By: #### A ERC #### [facility] [address] [place] [address] [place] Creatinine Clr Calc Pharmacy 60.35 [facility] Comment on above: Result Comment: PERF ORMED BY: [place] [address] PATHOLOGIST BUTCHER SUPERVISOR SESAR YOST M.D. Performed By: #### A ERC #### [facility] [address] Estimated GFR ( Christal > 60 [facility] Comment on above: Result Comment: GFR estimated reference range: According to KDOQI guidelines, <60 ml/min/1.73m2 is sufficient to diagnose a patient with chronic kidney disease. Performed By: #### A ERC #### [facility] [address] Estimated GFR (Non- Am 59 [facility] Comment on above: Performed By: #### A ERC #### [facility] [address] Glucose [Mass/Vol] 176 mg/dL High 70-100 [facility] Comment on above: Result Comment: [place] Glucose Reference Range is dependent on time and content of last meal. Glucose of more than 200 mg/dL in a nonstressed, ambulatory subject supports the diagnosis of Diabetes Mellitus. ADA recommended reference range Performed By: #### A ERC #### [facility] [address] Potassium [Moles/Vol] 3.6 mmol/L Normal 3.5-5.1 [facility] Comment on above: Performed By: #### A ERC #### [facility] [address] Sodium [Moles/Vol] 136 mmol/L Normal 136-146 [facility] Comment on above: Performed By: #### A ERC #### [facility] [address] Urea nitrogen [Mass/Vol] 32 mg/dL High 9-23 [facility] Comment on above: Performed By: #### A ERC #### [facility] [address] Basophils Auto (Bld) [#/Vol] Ordered By: Chante Narayan on 10-25-2021 Basophils (Bld) [#/Vol] 0.0 10*3/uL 0.0-0.2 [facility] Basophils/100 WBC Auto (Bld) Ordered By: Chante Narayan on 10-25-2021 Basophils/100 WBC (Bld) 0.3 % . F [facility] Blood hemoglobin measurement (mass/volume)Ordered By: Chante Narayan on 10-25-2021 Hemoglobin (Bld) [Mass/Vol] 11.2 g/dL 13.0-17.0 [facility] Blood leukocytes automated c ount (number/volume)Ordered By: Chanet Narayan on 10-25-2021 WBC (Bld) [#/Vol] 5.7 10*3/uL 4.5-11.0 [facility] Complete Blood Count Auto Di ffon 10-25-2021 Basophils (Bld) [#/Vol] 0.0 10*3/uL Normal 0.0-0.2 [facility] Comment on above: Result Comment: PERF ORMED BY: [place] [address] PATHOLOGIST BUTCHER SUPERVISOR SESAR YOST M.D. Performed By: #### A ERC #### [facility] [address] Basophils/100 WBC (Bld) 0.3 % Normal . F [facility] Comment on above: Performed By: #### A ERC #### [facility] [address] Eosinophils (Bld) [#/Vol] 0.4 10*3/uL Normal 0.0-0.45 [facility] Comment on above: Performed By: #### A ERC #### [facility] [address] Eosinophils/100 WBC (Bld) 6.7 % Normal . [facility] Comment on above: Performed By: #### A ERC #### [address] Erythrocyte distribution width (RBC) [Ratio] 17.6 % High 12.0-14.8 [facility] Comment on above: Performed By: #### A ERC #### [address] Hematocrit (Bld) [Volume fraction] 33.0 % Low 38.8-50.0 [facility] Comment on above: Performed By: #### A ERC #### [address] Hemoglobin (Bld) [Mass/Vol] 11.2 g/dL Low 13.0-17.0 [facility] Comment on above: Performed By: #### A ERC #### [address] Lymphocytes (Bld) [#/Vol] 0.5 10*3/uL Low 1.00-4.8 [facility] Comment on above: Performed By: #### A ERC #### [address] Lymphocytes/100 WBC (Bld) 9.4 % Normal . [facility] Comment on above: Performed By: #### A ERC #### [address] MCH (RBC) [Entitic mass] 29.3 pg Normal 27.5-35.2 [facility] Comment on above: Performed By: #### A ERC #### [address] [place] [address] [place] MCV (RBC) [Entitic vol] 86.7 fL Normal 83.5-101 F [facility] Comment on above: Performed By: #### A ERC #### [facility] [address] Mean Corpuscular HGB Conc 33.8 g/dL Normal 32.5-35.6 [facility] Comment on above: Performed By: #### A ERC #### [facility] [address] Monocytes (Bld) [#/Vol] 0.8 10*3/uL Normal 0.0-0.8 [facility] Comment on above: Performed By: #### A ERC #### [address] Monocytes/100 WBC (Bld) 14.5 % Normal . [facility] Comment on above: Performed By: #### A ERC #### [address] Neutrophils (Bld) [#/Vol] 4.0 10*3/uL Normal 1.8-7.7 [facility] Comment on above: Performed By: #### A ERC #### [address] Neutrophils/100 WBC (Bld) 69.1 % Normal . [facility] Comment on above: Performed By: #### A ERC #### [place] [address] [place] Nucleated RBC/100 WBC (Bld) [Ratio] 0.1 % Normal 0-0.5 [facility] Comment on above: Performed By: #### A ERC #### [address] Platelet mean volume (Bld) [Entitic vol] 8.6 fL Normal 6.6-10.1 [facility] Comment on above: Performed By: #### A ERC #### [place] [address] [place] Platelets (Bld) [#/Vol] 159 10*3/uL Normal 150-450 [facility] Comment on above: Performed By: #### A ERC #### [facility] [address] RBC (Bld) [#/Vol] 3.81 10*6/uL Low 3.90-5.60 [facility] Comment on above: Performed By: #### A ERC #### [facility] [address] WBC (Bld) [#/Vol] 5.7 10*3/uL Normal 4.5-11.0 [facility] Comment on above: Performed By: #### A ERC #### [facility] [address] Creatinine and Glomerular fi ltration rate.predicted panel (S/P/Bld)Ordered By: Chante Narayan on 10-25-2021 Creatinine [Mass/Vol] 1.24 mg/dL 0.64-1.27 [facility] Eosinophils Auto (Bld) [#/Vo l]Ordered By: Chante Narayan on 10-25-2021 Eosinophils (Bld) [#/Vol] 0.4 10*3/uL 0.0-0.45 [facility] Eosinophils/100 WBC Auto (Bl d)Ordered By: Chante Narayan on 10-25-2021 Eosinophils/100 WBC (Bld) 6.7 % . [facility] Erythrocyte distribution wid th Auto (RBC) [Ratio]Ordered By: Chante Narayan on 10-25-2021 Erythrocyte distribution width (RBC) [Ratio] 17.6 % 12.0-14.8 [facility] Estimated glomerular filtrat ion rate (GFR) non- AmericanOrdered By: Chante Narayan on 10-25-2021 GFR/1.73 sq M.predicted among non-blacks MDRD (S/P/Bld) [Vol rate/Area] 59 mL/Min [facility] Glucose Poct Glucometerson 0 10-25-2021 Glucose [Mass/Vol] 275 mg/dL Normal [facility] Comment on above: Result Comment: [place] Glucose Reference Range is dependent on time and content of last meal. Glucose of more than 200 mg/dL in a nonstressed, ambulatory subject supports the diagnosis of Diabetes Mellitus. PERFORMED BY: [place] [address] PATHOLOGIST BUTCHER SUPERVISOR SESAR YOST M.D. Performed By: #### G LULS ####Point of Care testing, Glucose [Mass/Vol] 249 mg/dL Normal [facility] Comment on above: Result Comment: [place] Glucose Reference Range is dependent on time and content of last meal. Glucose of more than 200 mg/dL in a nonstressed, ambulatory subject supports the diagnosis of Diabetes Mellitus. PERFORMED BY: [place] [address] PATHOLOGIST BUTCHER SUPERVISOR SESAR YOST M.D. Performed By: #### A ERC #### [address] Glucose [Mass/Vol] 160 mg/dL Normal [facility] Comment on above: Result Comment: [place] Glucose Reference Range is dependent on time and content of last meal. Glucose of more than 200 mg/dL in a nonstressed, ambulatory subject supports the diagnosis of Diabetes Mellitus. PERFORMED BY: [place] [address] PATHOLOGIST BUTCHER SUPERVISOR SESAR YOST M.D. Performed By: #### G LULS ####Point of Care testing, Hematocrit Auto (Bld) [Volum e fraction]Ordered By: Chante Narayan on 10-25-2021 Hematocrit (Bld) [Volume fraction] 33.0 % 38.8-50.0 [facility] - Hematology and Cell countsOrdered By: Chante Narayan on 10-25-2021 Nucleated RBC/100 WBC (Bld) [Ratio] 0.1 % 0-0.5 [facility] Lymphocytes Auto (Bld) [#/Vo l]Ordered By: Chante Narayan on 10-25-2021 Lymphocytes (Bld) [#/Vol] 0.5 10*3/uL 1.00-4.8 [facility] Lymphocytes/100 WBC Auto (Bl d)Ordered By: Chante Narayan on 10-25-2021 Lymphocytes/100 WBC (Bld) 9.4 % . [facility] MCH Auto (RBC) [Entitic mass ]Ordered By: Chante Narayan on 10-25-2021 MCH (RBC) [Entitic mass] 29.3 pg 27.5-35.2 [facility] MCHC Auto (RBC) [Mass/Vol]Or dered By: Chante Narayan on 10-25-2021 MCHC (RBC) [Mass/Vol] 33.8 g/dL 32.5-35.6 [facility] MCV Auto (RBC) [Entitic vol] Ordered By: Chante Narayan on 10-25-2021 MCV (RBC) [Entitic vol] 86.7 fL 83.5-101 F [facility] Monocytes Auto (Bld) [#/Vol] Ordered By: Chante Narayan on 10-25-2021 Monocytes (Bld) [#/Vol] 0.8 10*3/uL 0.0-0.8 [facility] Monocytes/100 WBC Auto (Bld) Ordered By: Chante Narayan on 10-25-2021 Monocytes/100 WBC (Bld) 14.5 % . F [facility] Neutrophils Auto (Bld) [#/Vo l]Ordered By: Chante Narayan on 10-25-2021 Neutrophils (Bld) [#/Vol] 4.0 10*3/uL 1.8-7.7 [facility] Neutrophils/100 WBC Auto (Bl d)Ordered By: Chante Narayan on 10-25-2021 Neutrophils/100 WBC (Bld) 69.1 % . [facility] No Panel InformationOrdered By: Chante Narayan on 10-25-2021 Estimated GFR () > 60 mL/Min [facility] Comment on above: GFR estimated refere nce range: According to KDOQI guidelines, <60 ml/min/1.73m2 is sufficient to diagnose a patient with chronic kidney disease. Pharmacy Creatinine Clearance (Chem 60.35 [facility] Platelet mean volume Auto (B ld) [Entitic vol]Ordered By: Chante Narayan on 10-25-2021 Platelet mean volume (Bld) [Entitic vol] 8.6 fL 6.6-10.1 [facility] Platelets Auto (Bld) [#/Vol] Ordered By: Chante Narayan on 10-25-2021 Platelets (Bld) [#/Vol] 159 10*3/uL 150-450 [facility] RBC Auto (Bld) [#/Vol]Ordere d By: Chante Narayan on 10-25-2021 RBC (Bld) [#/Vol] 3.81 10*6/uL 3.90-5.60 [facility] Serum or plasma calcium sergei urement (mass/volume)Ordered By: Chante Narayan on 10-25-2021 Calcium [Mass/Vol] 9.1 mg/dL 8.2-10.2 [facility] Serum or plasma chloride zofia surement (moles/volume)Ordered By: Chante Narayan on 10-25-2021 Chloride [Moles/Vol] 102 mmol/L 95-114 [facility] Serum or plasma glucose sergei urement (mass/volume)Ordered By: Chante Narayan on 10-25-2021 Glucose [Mass/Vol] 176 mg/dL 70-100 [facility] Comment on above: ADA recommended refe rence range Random Glucose Reference Range is dependent on time and content of last meal. Glucose of more than 200 mg/dL in a nonstressed, ambulatory subject supports the diagnosis of Diabetes Mellitus. Serum or plasma potassium me asurement (moles/volume)Ordered By: Chante Narayan on 10-25-2021 Potassium [Moles/Vol] 3.6 mmol/L 3.5-5.1 [facility] Serum or plasma sodium measu rement (moles/volume)Ordered By: Chante Narayan on 10-25-2021 Sodium [Moles/Vol] 136 mmol/L 136-146 [facility] Serum or plasma total carbon dioxide measurement (moles/volume)Ordered By: Chante Narayan on 10-25-2021 CO2 [Moles/Vol] 25.8 mmol/L 22.0-30.0 [facility] Serum or plasma urea nitroge n measurement (mass/volume)Ordered By: Chante Narayan on 10-25-2021 Urea nitrogen [Mass/Vol] 32 mg/dL 12-23 [facility] Glucose Poct Glucometerson 0 10-24-2021 Glucose [Mass/Vol] 225 mg/dL Normal [facility] Comment on above: Result Comment: [place] om Glucose Reference Range is dependent on time and content of last meal. Glucose of more than 200 mg/dL in a nonstressed, ambulatory subject supports the diagnosis of Diabetes Mellitus. Performed By: #### A ERC #### [address] Commemt1 Glu2: Cleaned Meter Normal [facility] Comment on above: Result Comment: PERF ORMED BY: [place] [address] PATHOLOGIST BUTCHER SUPERVISOR SESAR YOST M.D. Performed By: #### A ERC #### [address] Performed By: #### G LULS ####Point of Care testing, Glucose [Mass/Vol] 204 mg/dL Normal [facility] Comment on above: Result Comment: [place] Glucose Reference Range is dependent on time and content of last meal. Glucose of more than 200 mg/dL in a nonstressed, ambulatory subject supports the diagnosis of Diabetes Mellitus. Performed By: #### A ERC #### [facility] [address] [place] [address] Glucose [Mass/Vol] 164 mg/dL Normal [facility] Comment on above: Result Comment: [place] om Glucose Reference Range is dependent on time and content of last meal. Glucose of more than 200 mg/dL in a nonstressed, ambulatory subject supports the diagnosis of Diabetes Mellitus. Performed By: #### G LULS ####Point of Care testing, Glucose [Mass/Vol] 129 mg/dL Normal [facility] Comment on above: Result Comment: [place] om Glucose Reference Range is dependent on time and content of last meal. Glucose of more than 200 mg/dL in a nonstressed, ambulatory subject supports the diagnosis of Diabetes Mellitus. PERFORMED BY: [place] [address] PATHOLOGIST BUTCHER SUPERVISOR SESAR YOST M.D. Performed By: #### C OVID19 FLU RSV, CEPHEID NEG #### [place] [address] [place] Glucose Poct Glucometerson 0 10-23-2021 Commemt1 Glu2: Cleaned Meter [facility] Comment on above: Result Comment: PERF ORMED BY: [place] [address] PATHOLOGIST BUTCHER SUPERVISOR SESAR YOST M.D. Performed By: #### A ERC #### [address] Glucose [Mass/Vol] 256 mg/dL Normal [facility] Comment on above: Result Comment: [place] om Glucose Reference Range is dependent on time and content of last meal. Glucose of more than 200 mg/dL in a nonstressed, ambulatory subject supports the diagnosis of Diabetes Mellitus. Performed By: #### A ERC #### [address] Glucose [Mass/Vol] 255 mg/dL Normal [facility] Comment on above: Result Comment: [place] om Glucose Reference Range is dependent on time and content of last meal. Glucose of more than 200 mg/dL in a nonstressed, ambulatory subject supports the diagnosis of Diabetes Mellitus. PERFORMED BY: [place] [address] PATHOLOGIST BUTCHER SUPERVISOR SESAR YOST M.D. Performed By: #### G LULS #### Point of Care testing , Commemt1 Glu2: Cleaned Meter [facility] Comment on above: Result Comment: PERF ORMED BY: [facility] [address] [place] [address] PATHOLOGIST BUTCHER SUPERVISOR SESAR YOST M.D. Performed By: #### A ERC #### [place] [address] Glucose [Mass/Vol] 232 mg/dL Normal [facility] Comment on above: Result Comment: [place] om Glucose Reference Range is dependent on time and content of last meal. Glucose of more than 200 mg/dL in a nonstressed, ambulatory subject supports the diagnosis of Diabetes Mellitus. Performed By: #### A ERC #### [facility] [address] [place] [address] [place] Commemt1 Glu2: Cleaned Meter Normal [facility] Comment on above: Result Comment: PERF ORMED BY: [place] [address] PATHOLOGIST BUTCHER SUPERVISOR SESAR YOST M.D. Performed By: #### C OVID19 FLU RSV, CEPHEID NEG #### [place] [address] [place] Glucose [Mass/Vol] 155 mg/dL Normal [facility] Comment on above: Result Comment: [place] Glucose Reference Range is dependent on time and content of last meal. Glucose of more than 200 mg/dL in a nonstressed, ambulatory subject supports the diagnosis of Diabetes Mellitus. Performed By: #### C OVID19 FLU RSV, CEPHEID NEG #### [address] Albumin [Mass/volume] in Ser um or PlasmaOrdered By: Chante Narayan on 10-22-2021 Albumin [Mass/Vol] 3.1 g/dL 3.2-5.5 [facility] Complete Blood Count Auto Di ffon 10-22-2021 Basophils (Bld) [#/Vol] 0.0 10*3/uL Normal 0.0-0.2 [facility] Comment on above: Result Comment: PERF ORMED BY: [place] [address] PATHOLOGIST BUTCHER SUPERVISOR SESAR YOST M.D. Performed By: #### C BC, BMP #### [place] [address] [place] Basophils/100 WBC (Bld) 0.6 % Normal . F [facility] Comment on above: Performed By: #### C BC, BMP #### [facility] [address] Eosinophils (Bld) [#/Vol] 0.3 10*3/uL Normal 0.0-0.45 [facility] Comment on above: Performed By: #### C BC, BMP #### [facility] [address] Eosinophils/100 WBC (Bld) 4.5 % Normal . [facility] Comment on above: Performed By: #### C BC, BMP #### [facility] [address] Erythrocyte distribution width (RBC) [Ratio] 17.8 % High 12.0-14.8 [facility] Comment on above: Performed By: #### C BC, BMP #### [facility] [address] Hematocrit (Bld) [Volume fraction] 34.6 % Low 38.8-50.0 [facility] Comment on above: Performed By: #### C BC, BMP #### [facility] [address] Hemoglobin (Bld) [Mass/Vol] 11.8 g/dL Low 13.0-17.0 [facility] Comment on above: Performed By: #### C BC, BMP #### [facility] [address] [place] [address] [place] Lymphocytes (Bld) [#/Vol] 0.7 10*3/uL Low 1.00-4.8 [facility] Comment on above: Performed By: #### C BC, BMP #### [facility] [address] [place] [address] [place] Lymphocytes/100 WBC (Bld) 10.0 % Normal . [facility] Comment on above: Performed By: #### C BC, BMP #### [facility] [address] MCH (RBC) [Entitic mass] 29.5 pg Normal 27.5-35.2 [facility] Comment on above: Performed By: #### C BC, BMP #### [facility] [address] MCV (RBC) [Entitic vol] 86.7 fL Normal 83.5-101 F [facility] Comment on above: Performed By: #### C BC, BMP #### [facility] [address] Mean Corpuscular HGB Conc 34.0 g/dL Normal 32.5-35.6 [facility] Comment on above: Performed By: #### C BC, BMP #### [facility] [address] [place] [address] [place] Monocytes (Bld) [#/Vol] 1.0 10*3/uL High 0.0-0.8 [facility] Comment on above: Performed By: #### C BC, BMP #### [facility] [address] [place] [address] [place] Monocytes/100 WBC (Bld) 14.8 % Normal . F [facility] Comment on above: Performed By: #### C BC, BMP #### [facility] [address] [place] [address] [place] Neutrophils (Bld) [#/Vol] 4.6 10*3/uL Normal 1.8-7.7 [facility] Comment on above: Performed By: #### C BC, BMP #### [facility] [address] [place] [address] [place] Neutrophils/100 WBC (Bld) 70.1 % Normal . [facility] Comment on above: Performed By: #### C BC, BMP #### [facility] [address] [place] [address] [place] Nucleated RBC/100 WBC (Bld) [Ratio] 0.0 % Normal 0-0.5 [facility] Comment on above: Performed By: #### C BC, BMP #### [facility] [address] Platelet mean volume (Bld) [Entitic vol] 8.8 fL Normal 6.6-10.1 [facility] Comment on above: Performed By: #### C BC, BMP #### [facility] [address] Platelets (Bld) [#/Vol] 148 10*3/uL Low 150-450 [facility] Comment on above: Performed By: #### C BC, BMP #### [facility] [address] [place] [address] RBC (Bld) [#/Vol] 3.99 10*6/uL Normal 3.90-5.60 [facility] Comment on above: Performed By: #### C BC, BMP #### [address] WBC (Bld) [#/Vol] 6.6 10*3/uL Normal 4.5-11.0 [facility] Comment on above: Performed By: #### C BC, BMP #### [address] Comprehensive Metabolic Pane ray 10-22-2021 Albumin [Mass/Vol] 3.1 g/dL Low 3.2-5.5 [facility] Comment on above: Performed By: #### C BC, BMP #### [address] Albumin/Globulin [Mass ratio] 1.0 {ratio} Normal [facility] Comment on above: Performed By: #### C BC, BMP #### [address] ALP [Catalytic activity/Vol] 71 U/L Normal 32-92 [facility] Comment on above: Performed By: #### C BC, BMP #### [facility] [address] [place] [address] ALT [Catalytic activity/Vol] 21 U/L Normal 10-60 [facility] Comment on above: Performed By: #### C BC, BMP #### [address] AST [Catalytic activity/Vol] 23 U/L Normal 10-42 [facility] Comment on above: Performed By: #### C BC, BMP #### [facility] [address] [place] [address] [place] Bilirubin [Mass/Vol] 1.0 mg/dL Normal 0.3-1.2 [facility] Comment on above: Performed By: #### C BC, BMP #### [facility] [address] [place] [id number] [place] Calcium [Mass/Vol] 9.3 mg/dL Normal 8.2-10.2 [facility] Comment on above: Performed By: #### C BC, BMP #### [facility] [address] [place] [address] [place] Chloride [Moles/Vol] 100 mmol/L Normal 95-114 [facility] Comment on above: Performed By: #### C BC, BMP #### [facility] [address] [place] [id number] [facility] CO2 [Moles/Vol] 29.2 mmol/L Normal 22.0-30.0 [facility] Comment on above: Performed By: #### C BC, BMP #### [facility] [address] [place] [address] [place] Creatinine [Mass/Vol] 1.32 mg/dL High 0.64-1.27 [facility] Comment on above: Performed By: #### C BC, BMP #### [facility] [address] [place] [id number] [place] Creatinine Clr Calc Pharmacy 53.74 [facility] Comment on above: Performed By: #### C BC, BMP #### [facility] [address] [place] [id number] [place] Estimated GFR ( Christal > 60 [facility] Comment on above: Result Comment: GFR estimated reference range: According to KDOQI guidelines, <60 ml/min/1.73m2 is sufficient to diagnose a patient with chronic kidney disease. Performed By: #### C BC, BMP #### [facility] [address] [place] [id number] [place] Estimated GFR (Non- Am 55 [facility] Comment on above: Performed By: #### C BC, BMP #### [facility] [address] Globulin (S) [Mass/Vol] 3.0 g/dL Normal F [facility] Comment on above: Performed By: #### C BC, BMP #### [facility] [address] Glucose [Mass/Vol] 179 mg/dL High 70-100 [facility] Comment on above: Result Comment: [facility] Glucose Reference Range is dependent on time and content of last meal. Glucose of more than 200 mg/dL in a nonstressed, ambulatory subject supports the diagnosis of Diabetes Mellitus. ADA recommended reference range Performed By: #### C BC, BMP #### [address] Potassium [Moles/Vol] 3.5 mmol/L Normal 3.5-5.1 [facility] Comment on above: Performed By: #### C BC, BMP #### [address] Protein [Mass/Vol] 6.1 g/dL Normal 6.1-7.9 [facility] Comment on above: Performed By: #### C BC, BMP #### [address] Sodium [Moles/Vol] 137 mmol/L Normal 136-146 [facility] Comment on above: Performed By: #### C BC, BMP #### [address] Urea nitrogen [Mass/Vol] 32 mg/dL High 12-23 [facility] Comment on above: Performed By: #### C BC, BMP #### [address] Globulin Calc (S) [Mass/Vol] Ordered By: Chante Narayan on 10-22-2021 Globulin (S) [Mass/Vol] 3.0 g/dL F [facility] Glucose Poct Glucometerson 0 10-22-2021 Glucose [Mass/Vol] 286 mg/dL Normal [facility] Comment on above: Result Comment: [place] Glucose Reference Range is dependent on time and content of last meal. Glucose of more than 200 mg/dL in a nonstressed, ambulatory subject supports the diagnosis of Diabetes Mellitus. PERFORMED BY: [place] [address] PATHOLOGIST [employer]CHER SUPERVISOR SESAR YOST M.D. Performed By: #### G LULS #### Point of Care testing , Commemt1 Glu2: Cleaned Meter Normal [facility] Comment on above: Result Comment: PERF ORMED BY: [place] [address] PATHOLOGIST BUTCHER SUPERVISOR SESAR YOST M.D. Performed By: #### A ERC #### [address] Glucose [Mass/Vol] 267 mg/dL Normal [facility] Comment on above: Result Comment: [place] Glucose Reference Range is dependent on time and content of last meal. Glucose of more than 200 mg/dL in a nonstressed, ambulatory subject supports the diagnosis of Diabetes Mellitus. Performed By: #### A ERC #### [facility] [address] [place] [address] [place] Glucose [Mass/Vol] 226 mg/dL Normal [facility] Comment on above: Result Comment: [place] Glucose Reference Range is dependent on time and content of last meal. Glucose of more than 200 mg/dL in a nonstressed, ambulatory subject supports the diagnosis of Diabetes Mellitus. PERFORMED BY: [place] [address] PATHOLOGIST BUTCHER SUPERVISOR SESAR YOST M.D. Performed By: #### C OVID19 FLU RSV, CEPHEID NEG #### [facility] [address] [place] [address] [place] Glucose [Mass/Vol] 175 mg/dL Normal [facility] Comment on above: Result Comment: [place] Glucose Reference Range is dependent on time and content of last meal. Glucose of more than 200 mg/dL in a nonstressed, ambulatory subject supports the diagnosis of Diabetes Mellitus. PERFORMED BY: [place] [address] PATHOLOGIST BUTCHER SUPERVISOR SESAR YOST M.D. Performed By: #### C OVID19 FLU RSV, CEPHEID NEG #### [address] [address] [place] Prealbuminon 10-22-2021 Prealbumin [Mass/Vol] 19.4 mg/dL Normal 18.0-38.0 [facility] Comment on above: Result Comment: PERF ORMED BY: [place] [address] PATHOLOGIST BUTCHER SUPERVISOR SESAR YOST M.D. Performed By: #### C BC, BMP #### [facility] [address] [place], [place] [id number] [facility] Protein [Mass/volume] in Ser um or PlasmaOrdered By: Chante Narayan on 10-22-2021 Protein [Mass/Vol] 6.1 g/dL 6.1-7.9 [facility] Serum or plasma alanine dasilva otransferase measurement without P-5'-P (enzymatic activiOrdered By: Chante Narayan on 10-22-2021 ALT No additional P-5'-P [Catalytic activity/Vol] 21 U/L 10-60 [facility] Serum or plasma albumin/glob ulin mass ratioOrdered By: Chante Narayan on 10-22-2021 Albumin/Globulin [Mass ratio] 1.0 {ratio} [facility] Serum or plasma alkaline bob sphatase measurement (enzymatic activity/volume)Ordered By: Chante Narayan on 10-22-2021 ALP [Catalytic activity/Vol] 71 U/L 32-92 [facility] Serum or plasma aspartate am inotransferase measurement (enzymatic activity/volume)Ordered By: Chante Narayan on 10-22-2021 AST [Catalytic activity/Vol] 23 U/L 10-42 [facility] Serum or plasma prealbumin m easurement (mass/volume)Ordered By: Chante Narayan on 10-22-2021 Prealbumin [Mass/Vol] 19.4 mg/dL 18.0-38.0 [facility] Serum or plasma total biliru bin measurement (mass/volume)Ordered By: Chante Narayan on 10-22-2021 Bilirubin [Mass/Vol] 1.0 mg/dL 0.3-1.2 [facility] Bacteria identified Anaer cx Nom (Unsp spec)Ordered By: Reddy Brandt on 10-21-2021 Anaerobic microbial culture No Anaerobes Isolated 3 Days [facility] COVID-19 FRMCon 10-21-2021 SARS-CoV-2 (COVID-19) RNA MEREDITH+probe Ql (Unsp spec) Negative Normal Negative [facility] Comment on above: Order Comment: Comme nt Required for rehab admission Healthcare Worker?: N Result Comment: Testing for SARS-CoV-2 by RT-PCR This test was developed and its performance characteristics determined by [employer] and validated at the [facility]. This test has not been FDA [...] is terminated or revoked sooner. PERFORMED BY: [facility] [address] [place] [address] PATHOLOGIST BUTCHER SUPERVISOR SESAR YOST M.D. Performed By: #### C OVID19 FLU RSV, CEPHEID NEG #### [address] COVID-19 Positive/NegativeOr dered By: Reddy Brandt on 10-21-2021 SARS-CoV-2 (COVID-19) N gene MEREDITH+probe Ql (Resp) Negative Negative [facility] Comment on above: Testing for SARS-CoV -2 by RT-PCR This test was developed and its performance characteristics determined by [employer]) and validated at the [facility]. This test has not been FDA [...] Brandt on 10-21-2021 Glucose [Mass/Vol] 298 mg/dL [facility] Comment on above: Random Glucose Refer ence Range is dependent on time and content of last meal. Glucose of more than 200 mg/dL in a nonstressed, ambulatory subject supports the diagnosis of Diabetes Mellitus. Glucose Poct Glucometerson 0 10-21-2021 Commemt1 Glu2: Cleaned Meter Normal [facility] Comment on above: Result Comment: PERF ORMED BY: [place] [address] PATHOLOGIST BUTCHER SUPERVISOR SESAR YOST M.D. Performed By: #### C OVID19 FLU RSV, CEPHEID NEG #### [address] Glucose [Mass/Vol] 314 mg/dL Normal [facility] Comment on above: Result Comment: [place] Glucose Reference Range is dependent on time and content of last meal. Glucose of more than 200 mg/dL in a nonstressed, ambulatory subject supports the diagnosis of Diabetes Mellitus. Performed By: #### C OVID19 FLU RSV, CEPHEID NEG #### [place] [address] [place] Commemt1 Glu2: Cleaned Meter [facility] Comment on above: Result Comment: PERF ORMED BY: [place] [address] PATHOLOGIST BUTCHER SUPERVISOR SESAR YOST M.D. Performed By: #### C OVID19 FLU RSV, CEPHEID NEG #### [address] Glucose [Mass/Vol] 298 mg/dL Normal [facility] Comment on above: Result Comment: [place] [facility] Glucose Reference Range is dependent on time and content of last meal. Glucose of more than 200 mg/dL in a nonstressed, ambulatory subject supports the diagnosis of Diabetes Mellitus. Performed By: #### C OVID19 FLU RSV, CEPHEID NEG #### [address] Commemt1 [facility] Comment on above: Result Comment: Glu2 : WILL NOTIFY DR/RN Performed By: #### C OVID19 FLU RSV, CEPHEID NEG #### [place] [address] [place] Commemt2 Cleaned Meter [facility] Comment on above: Result Comment: PERF ORMED BY: [place] [address] PATHOLOGIST BUTCHER SUPERVISOR SESAR YOST M.D. Performed By: #### C OVID19 FLU RSV, CEPHEID NEG #### [address] Glucose [Mass/Vol] 316 mg/dL Normal [facility] Comment on above: Result Comment: [place] Glucose Reference Range is dependent on time and content of last meal. Glucose of more than 200 mg/dL in a nonstressed, ambulatory subject supports the diagnosis of Diabetes Mellitus. Performed By: #### C OVID19 FLU RSV, CEPHEID NEG #### [place] [address] [place] Commemt1 Glu2: Cleaned Meter Normal [facility] Comment on above: Result Comment: PERF ORMED BY: [place] [address] PATHOLOGIST BUTCHER SUPERVISOR SESAR YOST M.D. Performed By: #### C OVID19 FLU RSV, CEPHEID NEG #### [address] Glucose [Mass/Vol] 308 mg/dL Normal [facility] Comment on above: Result Comment: [place] Glucose Reference Range is dependent on time and content of last meal. Glucose of more than 200 mg/dL in a nonstressed, ambulatory subject supports the diagnosis of Diabetes Mellitus. Performed By: #### C OVID19 FLU RSV, CEPHEID NEG #### [address] Glucose [Mass/Vol] 240 mg/dL Normal [facility] Comment on above: Result Comment: [place] Glucose Reference Range is dependent on time and content of last meal. Glucose of more than 200 mg/dL in a nonstressed, ambulatory subject supports the diagnosis of Diabetes Mellitus. PERFORMED BY: [place] [address] PATHOLOGIST BUTCHER SUPERVISOR SESAR YOST M.D. Performed By: #### C BC, BMP #### [address] No Panel InformationOrdered By: Reddy Brandt on 10-21-2021 Bedside Glucose Comment Glu2: cleaned meter [facility] Bedside Glucose #2 Comment Cleaned meter [facility] Glucose Poct Glucometerson 0 10-20-2021 Glucose [Mass/Vol] 253 mg/dL Normal [facility] Comment on above: Result Comment: [place] Glucose Reference Range is dependent on time and content of last meal. Glucose of more than 200 mg/dL in a nonstressed, ambulatory subject supports the diagnosis of Diabetes Mellitus. PERFORMED BY: [place] [address] PATHOLOGIST BUTCHER SUPERVISOR SESAR YOST M.D. Performed By: #### C OVID19 FLU RSV, CEPHEID NEG #### [address] Glucose [Mass/Vol] 215 mg/dL Normal [facility] Comment on above: Result Comment: [place] Glucose Reference Range is dependent on time and content of last meal. Glucose of more than 200 mg/dL in a nonstressed, ambulatory subject supports the diagnosis of Diabetes Mellitus. PERFORMED BY: [place] [address] PATHOLOGIST BUTCHER SUPERVISOR SESAR YOST M.D. Performed By: #### C OVID19 FLU RSV, CEPHEID NEG #### [address] Glucose [Mass/Vol] 221 mg/dL Normal [facility] Comment on above: Result Comment: [place] Glucose Reference Range is dependent on time and content of last meal. Glucose of more than 200 mg/dL in a nonstressed, ambulatory subject supports the diagnosis of Diabetes Mellitus. PERFORMED BY: [place] [address] PATHOLOGIST BUTCHER SUPERVISOR SESAR YOST M.D. Performed By: #### C BC, BMP #### [address] Glucose [Mass/Vol] 203 mg/dL Normal [facility] Comment on above: Result Comment: [place] Glucose Reference Range is dependent on time and content of last meal. Glucose of more than 200 mg/dL in a nonstressed, ambulatory subject supports the diagnosis of Diabetes Mellitus. PERFORMED BY: [place] [address] PATHOLOGIST BUTCHER SUPERVISOR SESAR YOST M.D. Performed By: #### C OVID19 FLU RSV, CEPHEID NEG #### [address] ABO and Rh group post transf usion reaction Nom (Bld)Ordered By: Reddy Brandt on 10-19-2021 Microscopic observation Gram stain Nom (Unsp spec) [facility] Glucose Poct Glucometerson 0 10-19-2021 Glucose [Mass/Vol] 291 mg/dL Normal [facility] Comment on above: Result Comment: [place] Glucose Reference Range is dependent on time and content of last meal. Glucose of more than 200 mg/dL in a nonstressed, ambulatory subject supports the diagnosis of Diabetes Mellitus. PERFORMED BY: [place] [address] PATHOLOGIST BUTCHER SUPERVISOR SESAR YOST M.D. Performed By: #### A ERC #### [facility] [address] [place] [address] [place] Glucose [Mass/Vol] 271 mg/dL Normal [facility] Comment on above: Result Comment: [place] Glucose Reference Range is dependent on time and content of last meal. Glucose of more than 200 mg/dL in a nonstressed, ambulatory subject supports the diagnosis of Diabetes Mellitus. PERFORMED BY: [place] [address] PATHOLOGIST BUTCHER SUPERVISOR SESAR YOST M.D. Performed By: #### C BC, BMP #### [place] [address] [place] Glucose [Mass/Vol] 320 mg/dL Normal [facility] Comment on above: Result Comment: [place] Glucose Reference Range is dependent on time and content of last meal. Glucose of more than 200 mg/dL in a nonstressed, ambulatory subject supports the diagnosis of Diabetes Mellitus. PERFORMED BY: [place] [address] PATHOLOGIST BUTCHER SUPERVISOR SESAR YOST M.D. Performed By: #### C OVID19 FLU RSV, CEPHEID NEG #### [facility] [address] [place] [address] [place] Glucose [Mass/Vol] 266 mg/dL Normal [facility] Comment on above: Result Comment: [place] Glucose Reference Range is dependent on time and content of last meal. Glucose of more than 200 mg/dL in a nonstressed, ambulatory subject supports the diagnosis of Diabetes Mellitus. PERFORMED BY: [place] [address] PATHOLOGIST BUTCHER SUPERVISOR SESAR YOST M.D. Performed By: #### C BC, BMP #### [facility] [address] [place] [address] Glucose [Mass/Vol] 294 mg/dL Normal [facility] Comment on above: Result Comment: [place] Glucose Reference Range is dependent on time and content of last meal. Glucose of more than 200 mg/dL in a nonstressed, ambulatory subject supports the diagnosis of Diabetes Mellitus. PERFORMED BY: [place] [phone] PATHOLOGIST BUTCHER SUPERVISOR SESAR YOST M.D. Performed By: #### C OVID19 FLU RSV, CEPHEID NEG #### [address] ABO/Rh Retypeon 10-18-2021 ABO/RH Recheck Result Negative [facility] Comment on above: Result Comment: PERF ORMED BY: [place] [id number] PATHOLOGIST BUTCHER SUPERVISOR SESAR YOST M.D. Aerobic Cultureon 10-18-2021 Aerobic Culture Comment Right Tibia No Growth 2 Days Comment Right [place] No Anaerobes Isolated 3 Days Comment Right [place] Gram Stain Result No Bacteria Seen PERFORMED BY: [phone] PATHOLOGIST BUTCHER SUPERVISOR SESAR YOST M.D. [facility] Comment on above: Performed By: #### A ERC #### [facility] [address] [place] [address] Glucose Poct Glucometerson 0 10-18-2021 Commemt1 [facility] Comment on above: Result Comment: Glu2 : Will Repeat Test PERFORMED BY: [place] [phone] PATHOLOGIST BUTCHER SUPERVISOR SESAR YOST M.D. Performed By: #### G LULS #### Point of Care testing , Glucose [Mass/Vol] 451 mg/dL Off scale high [facility] Comment on above: Result Comment: [place] Glucose Reference Range is dependent on time and content of last meal. Glucose of more than 200 mg/dL in a nonstressed, ambulatory subject supports the diagnosis of Diabetes Mellitus. Performed By: #### G HAMILTONLS #### Point of Care testing , Commemt1 Glu2: Cleaned Meter [facility] Comment on above: Result Comment: PERF ORMED BY: [place] [address] PATHOLOGIST BUTCHER SUPERVISOR SESAR YOST M.D. Performed By: #### C BC, BMP #### [facility] [address] [place] [address] [place] Glucose [Mass/Vol] 258 mg/dL Normal [facility] Comment on above: Result Comment: [place] Glucose Reference Range is dependent on time and content of last meal. Glucose of more than 200 mg/dL in a nonstressed, ambulatory subject supports the diagnosis of Diabetes Mellitus. Performed By: #### C BC, BMP #### [place] [address] [place] Glucose [Mass/Vol] 193 mg/dL Normal [facility] Comment on above: Result Comment: [place] Glucose Reference Range is dependent on time and content of last meal. Glucose of more than 200 mg/dL in a nonstressed, ambulatory subject supports the diagnosis of Diabetes Mellitus. PERFORMED BY: [place] [address] PATHOLOGIST BUTCHER SUPERVISOR SESAR YOST M.D. Performed By: #### G KAYLIN #### Point of Care testing , Commemt1 Glu2: Cleaned Meter [facility] Comment on above: Result Comment: PERF ORMED BY: [place] [address] PATHOLOGIST BUTCHER SUPERVISOR SESAR YOST M.D. Performed By: #### C OVID19 FLU RSV, CEPHEID NEG #### [facility] [address] [place] [address] [place] Glucose [Mass/Vol] 231 mg/dL Normal [facility] Comment on above: Result Comment: [place] Glucose Reference Range is dependent on time and content of last meal. Glucose of more than 200 mg/dL in a nonstressed, ambulatory subject supports the diagnosis of Diabetes Mellitus. Performed By: #### C OVID19 FLU RSV, CEPHEID NEG #### [facility] [address] [place] [id number] [facility] Ray 10-18-2021 L - -------- Specimen: [id number] Received: 10/18/21 Status: SASHA León Num: [id number] Spec Type: Surgical Subm Dr: Reddy Brandt DO Tissues: A Extremity - Amputation, Non-Traumatic (RT LEG) Procedures: [place] Ascencio/8, Gross/Micro L5, Marychuy -------- Age/ Patient Sex Location Account Attending Physician -------- Anai Goodman 66/M 4N [id number] Reddy Brandt DO -------- SPEC NUM: [id number] RECD: 10/18/21 STATUS: SASHA LEÓN NUM: [id number] KARIME: 10/18/[address] [facility] [address]: Reddy Brandt DO ENTERED: 10/18/[address] [facility] [address]: BIA TYPE: Surgical DEPT: S ORDERED: [...] sections are submitted in 8 -------- Specimen: [id number] Received: 10/18/21 Status: SASHA León Num: [id number] Spec Type: Surgical Subm Dr: Reddy Brandt DO Tissues: A Extremity - Amputation, Non-Traumatic (RT LEG) Procedures: HE Stain/8, Gross/Micro L5, Decal -------- Patient: Anai Goodman [id number] (Continued) -------- Specimen: [id number] Received: 10/18/21 (Continued) Gross Description (Continued) Signed (signature on file) Jorge Pastrana MD 10/23/21 1344 -------- Specimen: [id number] Received: 10/18/21 Status: SASHA León Num: [id number] Spec Type: Surgical Subm Dr: Reddy Brandt DO Tissues: A Extremity - Amputation, Non-Traumatic (RT LEG) Procedures: HE Stain/8, Gross/Micro L5, Decal -------- Patient: Anai Goodman [id number] (Continued) -------- Specimen: [id number] Received: 10/18/21 (Continued) Gross Description (Continued) cassettes [...] examined. The pathologist's interpretation is performed at [facility]. The microscopic findings support the above pathologic diagnosis. CPT Codes 57057, 21343 -------- -------- Specimen: [id number] Received: 10/18/21 Status: SASHA León Num: [id number] Spec Type: Surgical Subm Dr: Reddy Brandt, DO Tissues: A Extremity - Amputation, Non-Traumatic (RT LEG) Procedures: HE Stain/8, Gr (more content not included)... Normal [facility] Type and Screenon 10-18-2021 ABO and Rh group Nom (Bld) Blood group B Rh(D) negative Normal [facility] Comment on above: Result Comment: PERF ORMED BY: [facility] [address] [place] [address] PATHOLOGIST BUTCHER SUPERVISOR SESAR YOST M.D. COVID-19 Positive/NegativeOr dered By: Reddy Brandt on 10-14-2021 SARS-CoV-2 (COVID-19) N gene MEREDITH+probe Ql (Resp) Negative Negative [facility] Comment on above: Testing for SARS-CoV -2 by RT-PCR This test was developed and its performance characteristics determined by [employer] and validated at the [facility]. This test has not been FDA [...] 10-06-2021 Basophils (Bld) [#/Vol] 0.0 10*3/uL 0.0-0.2 [facility] Basophils/100 WBC Auto (Bld) Ordered By: Reddy Brandt on 10-06-2021 Basophils/100 WBC (Bld) 0.6 % . F [facility] Blood hemoglobin measurement (mass/volume)Ordered By: Reddy Brandt on 10-06-2021 Hemoglobin (Bld) [Mass/Vol] 13.7 g/dL 13.0-17.0 [facility] Blood leukocytes automated c ount (number/volume)Ordered By: Reddy Brandt on 10-06-2021 WBC (Bld) [#/Vol] 7.8 10*3/uL 4.5-11.0 [facility] Creatinine and Glomerular fi ltration rate.predicted panel (S/P/Bld)Ordered By: Reddy Brandt on 10-06-2021 Creatinine [Mass/Vol] 1.76 mg/dL 0.64-1.27 [facility] Eosinophils Auto (Bld) [#/Vo l]Ordered By: Reddy Brandt on 10-06-2021 Eosinophils (Bld) [#/Vol] 0.4 10*3/uL 0.0-0.45 [facility] Eosinophils/100 WBC Auto (Bl d)Ordered By: Reddy Brandt on 10-06-2021 Eosinophils/100 WBC (Bld) 4.9 % . [facility] Erythrocyte distribution wid th Auto (RBC) [Ratio]Ordered By: Reddy Brandt on 10-06-2021 Erythrocyte distribution width (RBC) [Ratio] 18.8 % 12.0-14.8 [facility] Erythrocyte sedimentation ra te by Photometric methodOrdered By: Reddy Brandt on 10-06-2021 ESR Photometric method (Bld) [Velocity] 21 mm/hr 0-19 [facility] Estimated glomerular filtrat ion rate (GFR) non- AmericanOrdered By: Reddy Brandt on 10-06-2021 GFR/1.73 sq M.predicted among non-blacks MDRD (S/P/Bld) [Vol rate/Area] 39 mL/Min [facility] Glucose mean value [Mass/vol ume] in Blood Estimated from glycated hemoglobinOrdered By: Reddy Brandt on 10-06-2021 Average glucose Estimated from glycated hemoglobin (Bld) [Mass/Vol] 163 mg/dL [facility] Hematocrit Auto (Bld) [Volum e fraction]Ordered By: Reddy Brandt on 10-06-2021 Hematocrit (Bld) [Volume fraction] 41.1 % 38.8-50.0 [facility] Hemoglobin A1c percentageOrd ered By: Reddy Brandt on 10-06-2021 HbA1c (Bld) [Mass fraction] 7.3 % 4.3-5.6 [facility] Comment on above: Increased risk for d iabetes: 5.7 - 6.4 diabetes: >6.4 glycemic control for adults with diabetes: <7.0 Laboratory - Hematology and Cell countsOrdered By: Reddy Brandt on 10-06-2021 Nucleated RBC/100 WBC (Bld) [Ratio] 0.0 % 0-0.5 [facility] Lymphocytes Auto (Bld) [#/Vo l]Ordered By: Reddy Brandt on 10-06-2021 Lymphocytes (Bld) [#/Vol] 0.8 10*3/uL 1.00-4.8 [facility] Lymphocytes/100 WBC Auto (Bl d)Ordered By: Reddy Brandt on 10-06-2021 Lymphocytes/100 WBC (Bld) 10.9 % . [facility] MCH Auto (RBC) [Entitic mass ]Ordered By: Reddy Brandt on 10-06-2021 MCH (RBC) [Entitic mass] 28.8 pg 27.5-35.2 [facility] MCHC Auto (RBC) [Mass/Vol]Or dered By: Reddy Brandt on 10-06-2021 MCHC (RBC) [Mass/Vol] 33.3 g/dL 32.5-35.6 [facility] MCV Auto (RBC) [Entitic vol] Ordered By: Reddy Brandt on 10-06-2021 MCV (RBC) [Entitic vol] 86.3 fL 83.5-101 F [facility] Monocytes Auto (Bld) [#/Vol] Ordered By: Reddy Brandt on 10-06-2021 Monocytes (Bld) [#/Vol] 0.9 10*3/uL 0.0-0.8 [facility] Monocytes/100 WBC Auto (Bld) Ordered By: Reddy Brandt on 10-06-2021 Monocytes/100 WBC (Bld) 11.8 % . F [facility] Neutrophils Auto (Bld) [#/Vo l]Ordered By: Reddy Brandt on 10-06-2021 Neutrophils (Bld) [#/Vol] 5.6 10*3/uL 1.8-7.7 [facility] Neutrophils/100 WBC Auto (Bl d)Ordered By: Reddy Brandt on 10-06-2021 Neutrophils/100 WBC (Bld) 71.8 % . [facility] No Panel InformationOrdered By: Reddy Brandt on 10-06-2021 Estimated GFR () 48 mL/Min [facility] Comment on above: GFR estimated refere nce range: According to KDOQI guidelines, <60 ml/min/1.73m2 is sufficient to diagnose a patient with chronic kidney disease. Pharmacy Creatinine Clearance (Chem N/A [facility] Platelet mean volume Auto (B ld) [Entitic vol]Ordered By: Reddy Brandt on 10-06-2021 Platelet mean volume (Bld) [Entitic vol] 9.1 fL 6.6-10.1 [facility] Platelets Auto (Bld) [#/Vol] Ordered By: Reddy Brandt on 10-06-2021 Platelets (Bld) [#/Vol] 131 10*3/uL 150-450 [facility] RBC Auto (Bld) [#/Vol]Ordere d By: Reddy Brandt on 10-06-2021 RBC (Bld) [#/Vol] 4.77 10*6/uL 3.90-5.60 [facility] Serum or plasma C reactive p rotein measurement (mass/volume)Ordered By: Reddy Brandt on 10-06-2021 CRP [Mass/Vol] 0.5 mg/dL 0.0-1.0 [facility] Serum or plasma chloride zofia surement (moles/volume)Ordered By: Reddy Brandt on 10-06-2021 Chloride [Moles/Vol] 93 mmol/L 95-114 [facility] Serum or plasma potassium me asurement (moles/volume)Ordered By: Reddy Brandt on 10-06-2021 Potassium [Moles/Vol] 3.8 mmol/L 3.5-5.1 [facility] Serum or plasma sodium measu rement (moles/volume)Ordered By: Reddy Brandt on 10-06-2021 Sodium [Moles/Vol] 139 mmol/L 136-146 [facility] Serum or plasma total carbon dioxide measurement (moles/volume)Ordered By: Reddy Brandt on 10-06-2021 CO2 [Moles/Vol] 31.4 mmol/L 22.0-30.0 [facility] Serum or plasma urea nitroge n measurement (mass/volume)Ordered By: Reddy Brandt on 10-06-2021 Urea nitrogen [Mass/Vol] 52 mg/dL 9- [facility] WOUND CULTUREon 09-12-2021 Bacteria identified Aer cx Nom (Unsp spec) Final report Normal [facility] Comment on above: Performed By: #### C XWND ####[facility] [address] [place] [address]Dr. Anjali Reagan Result 1 Mixed skin areli Normal [facility] Comment on above: Performed By: #### C XWND ####[facility] Iwfftxuhtn[address] [place] [id number] Reagan CBC AUTO DIFFon 09-09-2021 BASO # 0.0 103/ul Normal 0.0-0.1 [facility] Comment on above: Performed By: #### C BC ####[facility] [address] [place] [address]DrVeronica Reagan Basophils/100 WBC (Bld) 0.6 % Normal 0.2-2.0 [facility] Comment on above: Performed By: #### C BC ####[facility] Hzhoavadhr26[address] [place] [address]DrVeronica Reagan EO # 0.3 103/ul Normal 0.0-0.7 [facility] Comment on above: Performed By: #### C BC ####[facility] [address]xiigbni[address] [place] [address]Dr. Anjali Tez Eosinophils/100 WBC (Bld) 4.1 % Normal 0.9-7.0 [facility] Comment on above: Performed By: #### C BC ####[facility] Amfdrrclpr[address] [place], [place] [address]Dr. Anjali Reagan Erythrocyte distribution width (RBC) [Ratio] 16.1 % Critically high 11.0-15.0 [facility] Comment on above: Performed By: #### C BC ####[facility] Fqlklucuzc[address] [place], [place] [address]Dr. Anjali Reagan Hematocrit (Bld) [Volume fraction] 38.3 % Critically low 42.0-54.0 [facility] Comment on above: Performed By: #### C BC ####[facility] Bbuppbhvas[address] [place], [place] [address]Dr. Anjali Reagan Hemoglobin (Bld) [Mass/Vol] 12.0 g/dL Critically low 14.0-18.0 [facility] Comment on above: Performed By: #### C BC ####[facility] S[address]zve[address] [place], [place] [address]Dr. Anjali Reagan IG # 0.04 10e3/ul Critically high 0.00-0.03 [facility] Comment on above: Performed By: #### C BC ####[facility] Luqicihjqe[address] [place], [place] [address]Dr. Anjali Reagan IG % 0.6 % Critically high 0.0-0.5 [facility] Comment on above: Performed By: #### C BC ####[facility] Yvdomskinj[address] [place], [place] [address]DrVeronica Reagan LYMPH # 0.9 103/ul Critically low 1.2-3.8 [facility] Comment on above: Performed By: #### C BC ####[facility] Frjmwkqvtp[address] [place], [place] [address]DrVeronica Reagan Lymphocytes/100 WBC (Bld) 12.6 % Critically low 20.5-60.0 [facility] Comment on above: Performed By: #### C BC ####[facility] [address] [place] [address]DrVeronica Reagan MANUAL DIFF REQ NO Normal [facility] Comment on above: Performed By: #### C BC ####[facility] Z[address]fmnhsuvp6[address] [place] [address]DrVeronica Reagan MCH (RBC) [Entitic mass] 27.5 pg Normal 25.9-34.0 [facility] Comment on above: Performed By: #### C BC ####[facility] Mifmvfmdqm[address] [place], [place] [address]DrVeronica Reagan MCHC (RBC) [Mass/Vol] 31.3 g/dL Normal 29.9-35.2 [facility] Comment on above: Performed By: #### C BC ####[facility] Ablwleewmk[address] [place], [place] [address]DrVeronica Reagan MCV (RBC) [Entitic vol] 87.6 fL Normal 80.0-94.0 [facility] Comment on above: Performed By: #### C BC ####[facility] Pqbyyjcywg[address] [place], [place] [address]DrVeronica Reagan MONO # 0.7 103/ul Normal 0.3-0.8 [facility] Comment on above: Performed By: #### C BC ####[facility] Npsuoxkazf[address] [place], [place] [address]DrVeronica Reagan Monocytes/100 WBC (Bld) 10.3 % Normal 1.7-12.0 [facility] Comment on above: Performed By: #### C BC ####[facility] Chqdphfhew[address] [place], [place] [address]DrVeronica Reagan NEUT # 5.1 103/ul Normal 1.4-6.5 [facility] Comment on above: Performed By: #### C BC ####[facility] Bboegdihrh[address] [place], [place] [address]DrVeronica Reagan Neutrophils/100 WBC (Bld) 71.8 % Normal 43.0-75.0 [facility] Comment on above: Performed By: #### C BC ####[facility] Htelyawlox[address] [place], [place] [address]Dr. Anjali Reagan Platelet mean volume (Bld) [Entitic vol] 9.4 fL Critically low 9.5-13.5 [facility] Comment on above: Performed By: #### C BC ####[facility] Nojdyjgsks[address] [place], [place] [address]Dr. Anjali Reagan PLT 249 103/ul Normal 150-450 [facility] Comment on above: Performed By: #### C BC ####[facility] Lbezyoiwmy[address] [place], [place] [address]Dr. Anjali Reagan RBC 4.37 106/ul Critically low 4.70-6.10 [facility] Comment on above: Performed By: #### C BC ####[facility] Hurkandvzc[address] [place], [place] [address]Dr. Anjali Reagan WBC 7.1 103/ul Normal 4.0-11.0 [facility] Comment on above: Performed By: #### C BC ####[facility] Omaeyfikmv[address] [place], [place] [address]Dr. Anjali Reagan CRPon 09-09-2021 CRP 1.9 mg/dL Critically high <=1.0 [facility] Comment on above: Performed By: #### C RP, CMP ####[facility] Afdpwttzjg[address] [place], [place] [address]Dr. Anjali Reagan GRAM STAINon 09-09-2021 COMMENTS NO ORGANISMS OBSERVED Normal [facility] Comment on above: Performed By: #### G STAIN ####[facility] Sxemigyozo[address] [place], [place] [address]Dr. Anjali Tez DIPHTHEROIDS Normal [facility] Comment on above: Performed By: #### G STAIN ####[facility] Vcsqboqamn[address] [place], [place] [address]Dr. Anjali Reagan EPITHELIALS Normal [facility] Comment on above: Performed By: #### G STAIN ####[facility] [address] [place] [id number]. Anjali Reagan FUNGAL ELEMENTS Normal [facility] Comment on above: Performed By: #### G STAIN ####[facility] Joyymejvwm[address] [place] [id number]. Anjali Reagan GRAM NEG BACILLI Normal [facility] Comment on above: Performed By: #### G STAIN ####[facility] Tzmsqjubwp0206 [place] [phone]. Anjali Reagan GRAM NEG DIPPLOCOCCI Normal [facility] Comment on above: Performed By: #### G STAIN ####[facility] N[address]raotsehc[address] [place] [address]Dr. Anjali Reagan GRAM POS BACILLI Normal [facility] Comment on above: Performed By: #### G STAIN ####[facility] [address] [place] [address]Dr. Anjali Reagan GRAM POSITIVE COCCI Normal [facility] Comment on above: Performed By: #### G STAIN ####[facility] [address]spv[address] [place] [address]Dr. Anjali Reagan GRAM STAIN SOURCE Left foot lateral Normal [facility] Comment on above: Performed By: #### G STAIN ####[facility] [address]ysdgheywp[address] [place] [address]Dr. Anjali Reagan GS_DIPTH Normal [facility] Comment on above: Performed By: #### G STAIN ####[facility] Nxflwbwpuw[address] [place], [place] [address]Dr. Anjali Reagan WBC RARE Normal [facility] Comment on above: Performed By: #### G STAIN ####[facility] Ivkdyltfby4[address] [place] [id number]. Anjali Reagan PROF 14(COMP METB)on 022 Albumin [Mass/Vol] 3.5 g/dL Normal 3.4-5.0 [facility] Comment on above: Performed By: #### C RP, CMP ####[facility] Umanyypsjf[address] [place], [place] [address]Dr. Anjali Reagan Albumin/Globulin [Mass ratio] 0.8 {ratio} Normal [facility] Comment on above: Performed By: #### C RP, CMP ####[facility] [address]ib[address] [place] [address]Dr. Anjali Reagan ALP [Catalytic activity/Vol] 136 U/L Critically high 46-116 [facility] Comment on above: Performed By: #### C RP, CMP ####[facility] Tayvuwkdsi[address] [place] [address]Dr. Anjali Reagan ALT [Catalytic activity/Vol] 34 U/L Normal 16-63 [facility] Comment on above: Performed By: #### C RP, CMP ####[facility] R[address]wrztrdf[address] [place] [address]Dr. Anjali Reagan Anion gap [Moles/Vol] 12.9 mmol/L Normal [facility] Comment on above: Performed By: #### C RP, CMP ####[facility] Tzbmenxvge[address] [place], [place] [address]Dr. Anjali Reagan AST [Catalytic activity/Vol] 27 U/L Normal 15-37 [facility] Comment on above: Performed By: #### C RP, CMP ####[facility] Pqybdfwzvw[address] [place], [place] [address]Dr. Anjali Reagan Bilirubin [Mass/Vol] 0.4 mg/dL Normal 0.2-1.0 [facility] Comment on above: Performed By: #### C RP, CMP ####[facility] [address]qva[address]okmx[address] [place] [address]Dr. Anjali Reagan Calcium [Mass/Vol] 9.7 mg/dL Normal 8.5-10.1 [facility] Comment on above: Performed By: #### C RP, CMP ####[facility] C[address]fpbqcaf[address] [place] [address]Dr. Anjali Reagan Chloride [Moles/Vol] 103 mmol/L Normal 98-107 [facility] Comment on above: Performed By: #### C RP, CMP ####[facility] Budkanpnwb4[address] [place] [address]Dr. Anjali Reagan CO2 [Moles/Vol] 28.9 mmol/L Normal 21.0-32.[address] [facility] Comment on above: Performed By: #### C RP, CMP ####[facility] Ctd[address]averp[address] [place] [address]Dr. Anjali Reagan Creatinine [Mass/Vol] 1.57 mg/dL Critically high 0.70-1.30 [facility] Comment on above: Performed By: #### C RP, CMP ####[facility] [address]qycb[address] [place] [address]Dr. Anjali Reagan EGFR-AF MONTSERRATIAN 54 mL/min/1.73m2 Critically low >=60 [facility] Comment on above: Performed By: #### C RP, CMP ####[facility] Gwjolpocix[address] [place], [place] [address]Dr. Anjali Reagan EGFR-NON AF MON[place]ERRATIAN 45 mL/min/1.73m2 Critically low >=60 [facility] Comment on above: Performed By: #### C RP, CMP ####[facility] Ieqvavjsam[address] [place], [place] [address]Dr. Anjali Reagan Globulin (S) [Mass/Vol] 4.5 g/dL Normal [facility] Comment on above: Performed By: #### C RP, CMP ####[facility] [address]ffwrdf[address] [place] [address]Dr. Anjali Reagan Glucose [Mass/Vol] 174 mg/dL Critically high 74-106 [facility] Comment on above: Performed By: #### C RP, CMP ####[facility] Umsgjwcnrr[address] [place] [address]Dr. Anjali Reagan Potassium [Moles/Vol] 4.8 mmol/L Normal 3.5-5.1 [facility] Comment on above: Performed By: #### C RP, CMP ####[facility] [address]kg[address] [place] [address]Dr. Anjali Reagan Protein [Mass/Vol] 8.0 g/dL Normal 6.4-8.2 [facility] Comment on above: Performed By: #### C RP, CMP ####[facility] [address]ofaueii[address] [place] [id number]. Anjali Tez Sodium [Moles/Vol] 140 mmol/L Normal 136-145 [facility] Comment on above: Performed By: #### C RP, CMP ####[facility] Uxxjalcxof9[address] [place] [id number]. Anjali Reagan Urea nitrogen [Mass/Vol] 34.0 mg/dL Critically high 7.0-18 .0 [facility] Comment on above: Performed By: #### C RP, CMP ####[facility] Yfaarxblyg2487 [place] [id number]. Anjali Reagan Urea nitrogen/Creatinine [Mass ratio] 21.7 mg/mg Normal [facility] Comment on above: Performed By: #### C RP, CMP ####[facility] [address]uhm[address] [place] [address]Dr. Anjali Reagan XR FOOT RT MIN 3 VIEWSon XR FOOT RT MIN 3 VIEWS Normal [facility] XR ANKLE RT MIN 3 VIEWSon XR ANKLE RT MIN 3 VIEWS Normal [facility] CULTURE BLOODon 08-26-2021 Microscopic examination of blood, culture Culture Observations: NO GROWTH AT 5 DAYS. Normal [facility] Comment on above: Performed By: #### B LDCX2 ####[facility] [address]znukj[address] [place] [address]Dr. Biancaramona Tez Microscopic examination of blood, culture Culture Observations: NO GROWTH AT 5 DAYS. Normal [facility] Comment on above: Performed By: #### B LDCX1 ####[facility] [address]jmhd[address]dz36[address] [place] [id number]. Anjali Reagan PREALBUMINon 08-26-2021 Prealbumin [Mass/Vol] 14 mg/dL Normal - [facility] Comment on above: Performed By: #### P REALBL ####[facility] Z[address]lwbvlx[address] [place] [address]Dr. Anjali Tez CBC W MANUAL DIFFon 08-25-19 ANISOCYTOSIS SLIGHT Normal [facility] Comment on above: Performed By: #### C BCMAN ####[facility] Yllmwvrdgk0273 [place] [id number]. Yiramona Reagan ATYPICAL LYMPH # Normal [facility] Comment on above: Performed By: #### C BCMAN ####[facility] Lgawwukq[address]q38[address] [place] [id number]. Yiramona Reagan ATYPICAL LYMPH % Normal [facility] Comment on above: Performed By: #### C BCMAN ####[facility] V[address]igtfkuqo[address] [place] [address]Dr. Yilan Reagan BAND # Normal 0.0-0.3 [facility] Comment on above: Performed By: #### C BCMAN ####[facility] [address]mypdxa[address] [place] [address]Dr. Yilan Reagan BAND % Normal 0-5 [facility] Comment on above: Performed By: #### C BCFIONA ####[facility] Zlkwxnaotz[address] [place], [place] [address]Dr. Anjali Reagan BASOM # 0.00 103/ul Normal 0.00-0.10 [facility] Comment on above: Performed By: #### C BCFIONA ####[facility] [address]qiftbxe27[address] [place] [address]Dr. Anjali Reagan BASOM % 0.0 % Critically low 0.2-2.0 [facility] Comment on above: Performed By: #### C BCFIONA ####[facility] [address]devl[address] [place] [address]Dr. Biancalan Reagan BLAST # Normal [facility] Comment on above: Performed By: #### C BCFIONA ####[facility] X[address]vye[address] [place] [address]Dr. Biancalan Reagan BLAST % Normal [facility] Comment on above: Performed By: #### C BCMAN ####[facility] Abxlcwsmsh75[address] [place] [address]Dr. Anjali Reagan CORRECTED WBC Normal 4.0-11.0 [facility] Comment on above: Performed By: #### C BCFIONA ####[facility] N[address]vuc[address]ob[address] [place], [place] [address]Dr. Anjali Reagan EOS # 0.34 103/ul Normal 0.00-0.70 [facility] Comment on above: Performed By: #### C CORI ####[facility] Kzcywqgqfu5155 [place] [id number]. Anjali Reagan EOS% 3.0 % Normal 0.9-7.0 [facility] Comment on above: Performed By: #### C CORI ####[facility] Vocyiuubzt8847 [place] [id number]. Anjali Reagan HCT 36.2 % Critically low 42.0-54.0 [facility] Comment on above: Performed By: #### C CORI ####[facility] Pu[address]xwvafu[address] [place] [address]Dr. Anjali Reagan HGB 11.8 g/dl Critically low 14.0-18.0 [facility] Comment on above: Performed By: #### Uzair PERSAUD ####[facility] [address]pjbi[address] [place] [address]Dr. Anjali Reagan LYMPHM # 1.03 103/ul Critically low 1.20-3.80 [facility] Comment on above: Performed By: #### Uzair PERSAUD ####[facility] Henkhkruxi[address] [place] [id number]. Anjali Reagan LYMPHM% 9.0 % Critically low 20.5-60.0 [facility] Comment on above: Performed By: #### Uzair PERSAUD ####[facility] Vidvqtdlnt2496 [place] [id number]. Anjali Reagan MCH 28.0 pg Normal 25.9-34.0 [facility] Comment on above: Performed By: #### C CORI ####[facility] Vnwvsfzoxn6[address] [place] [id number]. Anjali Reagan MCHC 32.6 g/dl Normal 29.9-35.2 [facility] Comment on above: Performed By: #### C CORI ####[facility] Kgmddgbtne2252 [place] [id number]. Anjali Reagan MCV 85.8 fL Normal 80.0-94.0 [facility] Comment on above: Performed By: #### C CORI ####[facility] Uydhmuvrjo76[address] [place] [id number]. Anjali Reagan METAMYELOCYTE # Normal [facility] Comment on above: Performed By: #### C CORI ####[facility] Wsbgzbhrgp0403 [place], [place] [address]La. Anjali Reagan METAMYELOCYTE % Normal [facility] Comment on above: Performed By: #### C CORI ####[facility] Rvydgzxcdj6241 [place] [id number]. Anjali Reagan MONOM# 1.61 103/ul Critically high 0.30-0.[address] [facility] Comment on above: Performed By: #### C CORI ####[facility] Ieoemdtbdm4026 [place] [id number]. Anjali Reagan MONOM% 14.0 % Critically high 1.7-12.0 [facility] Comment on above: Performed By: #### C CORI ####[facility] Frcrnhvzbh5129 [place] [id number]. Anjali Reagan MPV 8.9 fL Critically low 9.5-13.5 [facility] Comment on above: Performed By: #### C CORI ####[facility] Aztdapwiwr3894 [place] [id number]. Anjali Reagan MYELOCYTE # Normal [facility] Comment on above: Performed By: #### C CORI ####[facility] Uocpbbrgal6364 [place] [id number]. Anjali Reagan MYELOCYTE % Normal [facility] Comment on above: Performed By: #### C CORI ####[facility] Hhudbatrib3351 [place] [id number]. Anjali Reagan NRBC Normal [facility] Comment on above: Performed By: #### C CORI ####[facility] Ktranvwplg5662 [place] [id number]. Biancaramona Reagan PLT 263 103/ul Normal 150-450 [facility] Comment on above: Performed By: #### C CORI ####[facility] Eylgpwagte9763 [place], [place] [address]Lq. Anjali Tez RBC 4.22 106/ul Critically low 4.70-6.10 [facility] Comment on above: Performed By: #### C CORI ####[facility] Hdefiasdyq9947 [place], [place] [address]Ii. Anjali Tez RDW 16.0 % Critically high 11.0-15.0 [facility] Comment on above: Performed By: #### C CORI ####[facility] Lrzqnituxg2691 [place], [place] [address]Kk. Anjali Tez SEG # 8.51 103/ul Critically high 1.40-6.[address] [facility] Comment on above: Performed By: #### C CORI ####[facility] Rjfygltgef7361 [place] [id number]. Anjali Reagan SEG % 74.0 % Normal 43.0-75.0 [facility] Comment on above: Performed By: #### C CORI ####[facility] Rgekudqtqn2862 [place], [place] [address]Ss. Biancaramona Tez WBC 11.5 103/ul Critically high 4.0-11.[address] [facility] Comment on above: Performed By: #### Uzair PERSAUD ####[facility] Ayqwezxaff7900 [place] [id number]. Anjali Reagan CRPon 08-24-2021 CRP 11.6 mg/dL Critically high <=1.0 [facility] Comment on above: Performed By: #### C RP, CMP ####[facility] Zkprtfcanw3859 [place], [place] [address]Mr. Anjali Reagan PROF 14(COMP METB)on 022 Albumin [Mass/Vol] 3.2 g/dL Critically low 3.4-5.0 e [facility] Comment on above: Performed By: #### C RP, CMP ####[facility] Ulxhrbygyr2583 [place] [id number]. Anjali Reagan Albumin/Globulin [Mass ratio] 0.7 {ratio} Normal [facility] Comment on above: Performed By: #### C RP, CMP ####[facility] Dcsrjyjkcc7773 [place] [address]Dr. Anjali Tez ALP [Catalytic activity/Vol] 107 U/L Normal 46-116 [facility] Comment on above: Performed By: #### C RP, CMP ####[facility] Alcowluxfk8731 [place] [address]Dr. Anjali Reagan ALT [Catalytic activity/Vol] 57 U/L Normal 16-63 [facility] Comment on above: Performed By: #### C RP, CMP ####[facility] Njtyszudja[address] [place], [place] [address]Dr. Anjali Reagan Anion gap [Moles/Vol] 13.7 mmol/L Normal [facility] Comment on above: Performed By: #### C RP, CMP ####[facility] Mkbhofzice[address] [place], [place] [address]Dr. Anjali Reagan AST [Catalytic activity/Vol] 40 U/L Critically high 15-37 [facility] Comment on above: Performed By: #### C RP, CMP ####[facility] Buknwwlqok[address] [place], [place] [address]Dr. Anjali Reagan Bilirubin [Mass/Vol] 0.6 mg/dL Normal 0.2-1.0 [facility] Comment on above: Performed By: #### C RP, CMP ####[facility] Vvzhsnhlsw[address] [place], [place] [address]Dr. Anjali Reagan Calcium [Mass/Vol] 9.7 mg/dL Normal 8.5-10.1 [facility] Comment on above: Performed By: #### C RP, CMP ####[facility] Eichoatapr[address] [place], [place] [address]Dr. Anjali Reagan Chloride [Moles/Vol] 98 mmol/L Normal 98-107 [facility] Comment on above: Performed By: #### C RP, CMP ####[facility] Olvubrttqj[address] [place], [place] [address]Dr. Yilan Reaagn CO2 [Moles/Vol] 30.0 mmol/L Normal 21.0-32.[address] [facility] Comment on above: Performed By: #### C RP, CMP ####[facility] Vochcsrfpu2958 [place] [address]Dr. Anjali Reagan Creatinine [Mass/Vol] 1.73 mg/dL Critically high 0.70-1.30 [facility] Comment on above: Performed By: #### C RP, CMP ####[facility] Jcimqmshlt[address] [place], [place] [address]Dr. Anjali Reagan EGFR-AF MONTSERRATIAN 49 mL/min/1.73m2 Critically low >=60 [facility] Comment on above: Performed By: #### C RP, CMP ####[facility] Uqcwhsfmjt[address] [place], [place] [address]Dr. Anjali Reagan EGFR-NON AF MON[place]ERRATIAN 40 mL/min/1.73m2 Critically low >=60 [facility] Comment on above: Performed By: #### C RP, CMP ####[facility] Vjvquheaag[address] [place], [place] [address]Dr. Anjali Reagan Globulin (S) [Mass/Vol] 4.7 g/dL Normal [facility] Comment on above: Performed By: #### C RP, CMP ####[facility] Itmbbbxyfj982[address] [place], [place] [address]Dr. Anjali Reagan Glucose [Mass/Vol] 92 mg/dL Normal 74-106 [facility] Comment on above: Performed By: #### C RP, CMP ####[facility] Fviarhzjng[address] [place], [place] [address]Dr. Anjali Reagan Potassium [Moles/Vol] 3.7 mmol/L Normal 3.5-5.1 [facility] Comment on above: Performed By: #### C RP, CMP ####[facility] Hhnfsgzgsh[address] [place], [place] [address]Dr. Anjali Reagan Protein [Mass/Vol] 7.9 g/dL Normal 6.4-8.2 [facility] Comment on above: Performed By: #### C RP, CMP ####[facility] Yoxhzzodzq9324 [place] [id number]. Anjali Reagan Sodium [Moles/Vol] 138 mmol/L Normal 136-145 [facility] Comment on above: Performed By: #### C RP, CMP ####[facility] Pkhtmwhdbf[address] [place], [place] [address]Dr. Anjali Reagan Urea nitrogen [Mass/Vol] 50.0 mg/dL Critically high 7.0-18 .0 [facility] Comment on above: Performed By: #### C RP, CMP ####[facility] Xcidoqigse0711 [place] [id number]. Anjali Reagan Urea nitrogen/Creatinine [Mass ratio] 28.9 mg/mg Normal [facility] Comment on above: Performed By: #### C RP, CMP ####[facility] Hiiuxuimrl[address] [place], [place] [address]Dr. Anjali Reagan SED RATE [facility] 2021 SED RATE 17 mm/hr Normal <=20 [facility] Comment on above: Performed By: #### S EDR ####[facility] Wkgyyvbbrm[address] [place], [place] [address]Dr. Anjali Reagan CBC (INCLUDES DIFF/PLT)on Basophils (Bld) [#/Vol] 0.034 10*3/uL Normal 0-200 [facility] Comment on above: Performed By: #### 6 399, 496, 718, 18272 #### [facility] [place] [address] Associate Professor Of Criminal Justice: Juan Meraz MD Basophils/100 WBC (Bld) 0.3 % Normal [facility] Comment on above: Performed By: #### 6 399, 496, 718, 84684 #### [facility] [place] [address] Associate Professor Of Criminal Justice: Juan Meraz MD Eosinophils (Bld) [#/Vol] 0.023 10*3/uL Normal 15-500 [facility] Comment on above: Performed By: #### 6 399, 496, 718, 97714 #### [facility] of [place] [address] Associate Professor Of Criminal Justice: Juan Meraz MD Eosinophils/100 WBC (Bld) 0.2 % Normal [facility] Comment on above: Performed By: #### 6 399, 496, 718, 40626 #### [facility] of [place] [address] Associate Professor Of Criminal Justice: Juan Meraz MD Erythrocyte distribution width (RBC) [Ratio] 15.6 % High 11.0-15.0 [facility] Comment on above: Performed By: #### 6 399, 496, 718, 09722 #### [facility] of [place] [address] Associate Professor Of Criminal Justice: Juan Meraz MD Hematocrit (Bld) [Volume fraction] 38.9 % Normal 38.5-50.0 [facility] Comment on above: Performed By: #### 6 399, 496, 718, 95203 #### [facility] of [place] [address] Associate Professor Of Criminal Justice: Juan Meraz MD Hemoglobin (Bld) [Mass/Vol] 12.7 g/dL Low 13.2-17.1 [facility] Comment on above: Performed By: #### 6 399, 496, 718, 24773 #### [facility] of [place] [address] Associate Professor Of Criminal Justice: Juan Meraz MD Lymphocytes (Bld) [#/Vol] 0.531 10*3/uL Low 850-3900 [facility] Comment on above: Performed By: #### 6 399, 496, 718, 33992 #### [facility] of [place] [address] Associate Professor Of Criminal Justice: Juan Meraz MD Lymphocytes/100 WBC (Bld) 4.7 % Normal [facility] Comment on above: Performed By: #### 6 399, 496, 718, 25942 #### [facility] of [address] [place] [address] Associate Professor Of Criminal Justice: Juan Meraz MD MCH (RBC) [Entitic mass] 28.2 pg Normal 27.0-33.0 [facility] Comment on above: Performed By: #### 6 399, 496, 718, 28469 #### [facility] of [place] [address] Associate Professor Of Criminal Justice: Juan Meraz MD MCHC (RBC) [Mass/Vol] 32.6 g/dL Normal 32.0-36.[address] [facility] Comment on above: Performed By: #### 6 399, 496, 718, 98185 #### [facility] of [place] [address] Associate Professor Of Criminal Justice: Juan Meraz MD MCV (RBC) [Entitic vol] 86.4 fL Normal 80.0-100.0 [facility] Comment on above: Performed By: #### 6 399, 496, 718, 66473 #### [facility] of [place] [address] Associate Professor Of Criminal Justice: Juan Meraz MD Monocytes (Bld) [#/Vol] 1.119 10*3/uL High 200-950 [facility] Comment on above: Performed By: #### 6 399, 496, 718, 97924 #### [facility] of [place] [address] Associate Professor Of Criminal Justice: uJan Meraz MD Monocytes/100 WBC (Bld) 9.9 % Normal [facility] Comment on above: Performed By: #### 6 399, 496, 718, 52751 #### [facility] of [place] [address] Associate Professor Of Criminal Justice: Juan Meraz MD Neutrophils (Bld) [#/Vol] 9.594 10*3/uL High 6629-3734 [facility] Comment on above: Performed By: #### 6 399, 496, 718, 32815 #### [facility] of [place] [address] [place] [address] Associate Professor Of Criminal Justice: Juan Meraz MD Neutrophils/100 WBC (Bld) 84.9 % Normal [facility] Comment on above: Performed By: #### 6 399, 496, 718, 90401 #### [facility] [place] [address] Associate Professor Of Criminal Justice: Juan Meraz MD Platelet mean volume (Bld) [Entitic vol] 10.1 fL Normal 7.5-12.5 [facility] Comment on above: Performed By: #### 6 399, 496, 718, 20891 #### [facility] [place] [address] Associate Professor Of Criminal Justice: Juan Meraz MD Platelets (Bld) [#/Vol] 267 10*3/uL Normal 140-400 [facility] Comment on above: Performed By: #### 6 399, 496, 718, 57025 #### [facility] [place] [address] Associate Professor Of Criminal Justice: Juan Meraz MD RBC (Bld) [#/Vol] 4.50 10*6/uL Normal 4.20-5.80 [facility] Comment on above: Performed By: #### 6 399, 496, 718, 68508 #### [facility] [place] [address] Associate Professor Of Criminal Justice: Juan Meraz MD WBC (Bld) [#/Vol] 11.3 10*3/uL High 3.8-10.8 [facility] Comment on above: Performed By: #### 6 399, 496, 718, 38078 #### [facility] [place] [address] Associate Professor Of Criminal Justice: Juan Meraz MD HEMOGLOBIN A1con 08-23-2021 HEMOGLOBIN [...] Performed By: #### 6 399, 496, 718, 69884 #### [facility] [address], [address] [place] [address] Associate Professor Of Criminal Justice: Juan Meraz MD PHOSPHATE ( PHOSPHORUS)on 08-23-2021 Phosphate [Mass/Vol] 3.7 mg/dL Normal 2.5-4.5 [facility] Comment on above: Order Comment: PATIE NT UNABLE TO VOID; ADVISED TO RETURN FOR COLLECTION. Performed By: #### 6 399, 496, 718, 03083 #### [facility] [address], [address] [place] [address] Associate Professor Of Criminal Justice: Juan Meraz MD PTH, INTACT WITHOUT CALCIUMo [...] Performed By: #### 6 399, 496, 718, 90979 #### [facility] [address], [address] [place], [place] [address] Associate Professor Of Criminal Justice: Juan Meraz MD VITAMIN D,25-OH,TOTAL,IAon 0 08-23-2021 [...] D, (D2,D3), LC/MS/MS is recommended: order code [id number] (patients >2yrs). See Note 1 Note 1 For additional information, please refer to http://education.HazelTree/faq/NWX928 (This link is being provided for informational/ educational purposes only.) Performed By: #### 6 399, 496, 718, 67414 #### [facility] [address] [facility], [address] [place] [address] Associate Professor Of Criminal Justice: Juan Meraz MD CBC W MANUAL DIFFon 07-06-19 22 ATYPICAL LYMPH # Normal [facility] Comment on above: Performed By: #### C CORI ####[facility] Rfifjrcode6514 [place] [address]Dr. Biancalan Reagan ATYPICAL LYMPH % Normal [facility] Comment on above: Performed By: #### C CORI ####[facility] Fddtxgqzax0520 [place] [address]Dr. Yilan Reagan BAND # 0.1 103/ul Normal 0.0-0.3 [facility] Comment on above: Performed By: #### C SAUMYAMAN ####[facility] Jzaylinelh1864 [place] [address]Dr. Yilan Reagan BAND % 1 % Normal 0-5 [facility] Comment on above: Performed By: #### C CORI ####[facility] Hhggilrbur0141 [place] [address]Dr. Yilan Reagan BASOM # 0.00 103/ul Normal 0.00-0.10 [facility] Comment on above: Performed By: #### C CORI ####[facility] Zcqoegutrv0249 [place] [address]Dr. Biancalan Reagan BASOM % 0.0 % Critically low 0.2-2.0 [facility] Comment on above: Performed By: #### C CORI ####[facility] Timagfusle[address] [place], [place] [address]Dr. Anjali Reagan BLAST # Normal [facility] Comment on above: Performed By: #### C BCFIONA ####[facility] Lubexscche0447 [place] [id number]. Anjali Reagan BLAST % Normal [facility] Comment on above: Performed By: #### C BCFIONA ####[facility] Szjjasgjbi2094 [place] [address]Dr. Anjali Reagan CORRECTED WBC Normal 4.0-11.0 [facility] Comment on above: Performed By: #### C CORI ####[facility] Fevjizgahy0054 [place] [address]Dr. Anjali Reagan EOS # 0.16 103/ul Normal 0.00-0.70 [facility] Comment on above: Performed By: #### C CORI ####[facility] Wiwgyljedg[address] [place], [place] [address]Dr. Anjali Reagan EOS% 2.0 % Normal 0.9-7.0 [facility] Comment on above: Performed By: #### C CORI ####[facility] Bggfbgrasc0729 [place] [address]Dr. Anjali Reagan HCT 35.3 % Critically low 42.0-54.0 [facility] Comment on above: Performed By: #### C CORI ####[facility] Cqghojvfwj6859 [place] [address]Dr. Anjali Reagan HGB 11.4 g/dl Critically low 14.0-18.0 [facility] Comment on above: Performed By: #### C BCFIONA ####[facility] Iiclxlmhly8238 [place] [address]Dr. Anjali Reagan LYMPHM # 0.70 103/ul Critically low 1.20-3.80 [facility] Comment on above: Performed By: #### C BCFIONA ####[facility] Rightwalnz8771 [place] [address]Dr. Anjali Reagan LYMPHM% 9.0 % Critically low 20.5-60.0 [facility] Comment on above: Performed By: #### C CORI ####[facility] Bpeusdgwmn1821 [place], [place] [address]Sv. Anjali Reagan MCH 27.5 pg Normal 25.9-34.0 [facility] Comment on above: Performed By: #### C CORI ####[facility] Qbommxfpuj7575 [place], [place] [address]He. Anjali Reagan MCHC 32.3 g/dl Normal 29.9-35.2 [facility] Comment on above: Performed By: #### C CORI ####[facility] Wcquuizciw9742 [place] [id number]. Anjali Reagan MCV 85.3 fL Normal 80.0-94.0 [facility] Comment on above: Performed By: #### C CORI ####[facility] Jlggyswabr8372 [place] [id number]. Anjali Reagan METAMYELOCYTE # Normal [facility] Comment on above: Performed By: #### C CORI ####[facility] Yoxcxcylkh7103 [place] [id number]. Anjali Reagan METAMYELOCYTE % Normal [facility] Comment on above: Performed By: #### C CORI ####[facility] Kqauurnitv6612 [place] [address]Dr. Anjali Reagan MONOM# 1.09 103/ul Critically high 0.30-0.80 [facility] Comment on above: Performed By: #### C CORI ####[facility] Hlkakckcal1848 [place] [address]Dr. Anjali Reagan MONOM% 14.0 % Critically high 1.7-12.0 [facility] Comment on above: Performed By: #### C CORI ####[facility] Brcxmozvyh6090 [place] [address]Dr. Anjali Reagan MPV 9.6 fL Normal 9.5-13.5 [facility] Comment on above: Performed By: #### C CORI ####[facility] Tiayejrdmx[address] [place], [place] [address]Dr. Anjali Raegan MYELOCYTE # Normal [facility] Comment on above: Performed By: #### C CORI ####[facility] Leszrqmofe0919 [place] [id number]. Anjali Reagan MYELOCYTE % Normal [facility] Comment on above: Performed By: #### C CORI ####[facility] Uyjhzqkrmh8881 [place], [place] [address]Uc. Anjali Reagan NRBC Normal [facility] Comment on above: Performed By: #### C CORI ####[facility] Kyplrohfvo9581 [place] [id number]. Anjali Reagan PLT 119 103/ul Critically low 150-450 [facility] Comment on above: Performed By: #### C CORI ####[facility] Qcqlbjboxw3268 [place] [address]Dr. Anjali Reagan RBC 4.14 106/ul Critically low 4.70-6.10 [facility] Comment on above: Performed By: #### C CORI ####[facility] Fppnjqssyj[address] [place], [place] [address]Dr. Anjali Reagan RDW 16.1 % Critically high 11.0-15.0 [facility] Comment on above: Performed By: #### C CORI ####[facility] Oucanwjfvj[address] [place], [place] [address]Dr. Anjali Reagan SEG # 5.77 103/ul Normal 1.40-6.50 [facility] Comment on above: Performed By: #### C CORI ####[facility] Zlpkxvexeg8532 [place] [id number]. Anjali Reagan SEG % 74.0 % Normal 43.0-75.0 [facility] Comment on above: Performed By: #### C CORI ####[facility] Syqjzyrrqc[address] [place], [place] [address]Dr. Anjali Reagan WBC 7.8 103/ul Normal 4.0-11.0 [facility] Comment on above: Performed By: #### C CORI ####[facility] Sfptcnbnbu[address] [place], [place] [address]Dr. Anjali Reagan CRPon 07-05-2021 CRP [Mass/Vol] mg/L Critically high <=1.0 [facility] Comment on above: Performed By: #### C RP, BMP ####[facility] Swrpndmrwc8581 [place] [address]Dr. Anjali Reagan PROF CHEM 8 (BAS METB)on Anion gap [Moles/Vol] 10.1 mmol/L Normal [facility] Comment on above: Performed By: #### C RP, BMP ####[facility] Rqxhzraves9411 [place] [address]Dr. Anjali Reagan Calcium [Mass/Vol] 9.6 mg/dL Normal 8.5-10.1 [facility] Comment on above: Performed By: #### C RP, BMP ####[facility] Esyjjpgzki0896 [place] [address]Dr. Anjali Reagan Chloride [Moles/Vol] 100 mmol/L Normal 98-107 [facility] Comment on above: Performed By: #### C RP, BMP ####[facility] Htzyfcxebv5962 [place] [address]Dr. Anjali Reagan CO2 [Moles/Vol] 30.4 mmol/L Critically high 22.0-30.0 [facility] Comment on above: Performed By: #### C RP, BMP ####[facility] Owpdfiiyib[address] [place], [place] [address]Dr. Anjali Reagan Creatinine [Mass/Vol] 1.49 mg/dL Critically high 0.66-1.25 [facility] Comment on above: Performed By: #### C RP, BMP ####[facility] Mfvuwnwjlw9155 [place] [address]Dr. Anjali Reagan EGFR-AF MONTSERRATIAN 58 mL/min/1.73m2 Critically low >=60 [facility] Comment on above: Performed By: #### C RP, BMP ####[facility] Avcncruqov[address] [place], [place] [address]Dr. Anjali Reagan EGFR-NON AF MONTSERRATIAN 48 mL/min/1.73m2 Critically low >=60 [facility] Comment on above: Performed By: #### C RP, BMP ####[facility] Dvhtzpcdkw8440 [place] [id number]. Anjali Reagan Glucose [Mass/Vol] 191 mg/dL Critically high 74-106 [facility] Comment on above: Performed By: #### C RP, BMP ####[facility] Jwbrwaells1384 [place] [id number]. Biancaramona Reagan Potassium [Moles/Vol] 4.5 mmol/L Normal 3.4-5.0 [facility] Comment on above: Performed By: #### C RP, BMP ####[facility] Eqseevgdob8424 [place] [id number]. Biancaramona Reagan Sodium [Moles/Vol] 136 mmol/L Critically low 137-145 [facility] Comment on above: Performed By: #### C RP, BMP ####[facility] Unyjtyoluf0732 [place] [id number]. Anjali Reagan Urea nitrogen [Mass/Vol] 33.0 mg/dL Critically high 7.0-18 .0 [facility] Comment on above: Performed By: #### C RP, BMP ####[facility] Cttpuwppid5030 [place] [id number]. Biancaramona Tez Urea nitrogen/Creatinine [Mass ratio] 22.1 mg/mg Normal [facility] Comment on above: Performed By: #### C RP, BMP ####[facility] Dlyrblrznt4720 [place] [id number]. Biancaramona Tez SED RATE EL RITOERGRENon 2021 SED RATE 26 mm/hr Critically high <=20 [facility] Comment on above: Performed By: #### S EDR ####[facility] Jmsfixrqvn228[address] [place], [place] [address]Dr. Biancaramona Reagan XR ANKLE RT MIN 3 VIEWSon XR ANKLE RT MIN 3 VIEWS Normal [facility] CT ANKLE RT WO CONon 022 CT ANKLE RT WO CON Normal [facility] CULTURE OTHERon 05-19-2021 CULTURE OTHER Normal [facility] Comment on above: Performed By: #### O THCX ####[facility] Ocjrsohbtz0577 [place] [id number]. Biancaramona Tez CULTURE ANAEROBICon 05-16-19 CULTURE ANAEROBIC Specimen Comments: RIGHT FOOT ABSCESS Culture Observations: NO GROWTH OF ANAEROBES AT 72 HOURS. Normal [facility] Comment on above: Performed By: #### A NACX ####[facility] Sujawryzpt[address] [place] [address]Dr. Anjali Reagan GRAM STAINon 05-16-2021 DIPHTHEROIDS Normal [facility] Comment on above: Performed By: #### G STAIN ####[facility] Fkslqbutqd422[address] [place], [place] [address]Dr. Anjali Reagan EPITHELIALS Normal [facility] Comment on above: Performed By: #### G STAIN ####[facility] Dfabodwfrt487[address] [place], [place] [address]Dr. Anjali Reagan FUNGAL ELEMENTS Normal [facility] Comment on above: Performed By: #### G STAIN ####[facility] Mhpjloubbu510[address] [place], [place] [address]Dr. Anjali Reagan GRAM NEG BACILLI MANY Normal [facility] Comment on above: Performed By: #### G STAIN ####[facility] Byjjgvosas[address] [place], [place] [address]Dr. Anjali Reagan GRAM NEG DIPPLOCOCCI Normal [facility] Comment on above: Performed By: #### G STAIN ####[facility] Wlkufzwofy54[address] [place] [address]Dr. Anjali Reagan GRAM POS BACILLI Normal [facility] Comment on above: Performed By: #### G STAIN ####[facility] Wuvhccttvp[address] [place], [place] [address]Dr. Anjali Reagan GRAM POSITIVE COCCI Normal The [facility] Comment on above: Performed By: #### G STAIN ####[facility] Yxpmyxugpv49[address] [place] [address]Dr. Anjali Reagan GRAM STAIN SOURCE RIGHT FOOT Normal The [facility] Comment on above: Performed By: #### G STAIN ####[facility] Pypgxpckzk[address] [place], [place] [address]Dr. Anjali Tez GS_DIPTH Normal [facility] Comment on above: Performed By: #### G STAIN ####[facility] Rqdbmvwprn1539 [place], [place] [address]Jo. Anjali Reagan WBC MANY Normal [facility] Comment on above: Performed By: #### G STAIN ####[facility] Dugdafbxma0895 [place] [id number]. Anjali Reagan XR ANKLE RT MIN 3 VIEWSon XR ANKLE RT MIN 3 VIEWS Normal [facility] COMPREHENSIVE METABOLIC PANE Ray 04-16-2021 Albumin [Mass/Vol] 4.6 g/dL Normal 3.6-5.1 [facility] Comment on above: Performed By: #### 7 600, 496, 42897 #### [facility] [place] [address] Associate Professor Of Criminal Justice: Juan Meraz MD Albumin/Globulin [Mass ratio] 1.7 {ratio} Normal 1.0-2.5 [facility] Comment on above: Performed By: #### 7 600, 496, 57080 #### [facility] [place] [address] Associate Professor Of Criminal Justice: Juan Meraz MD ALP [Catalytic activity/Vol] 119 U/L Normal 35-144 [facility] Comment on above: Performed By: #### 7 600, 496, 74955 #### [facility] [place] [address] Associate Professor Of Criminal Justice: Juan Meraz MD ALT [Catalytic activity/Vol] 19 U/L Normal 9-46 [facility] Comment on above: Performed By: #### 7 600, 496, 67068 #### [facility] [place] [address] Associate Professor Of Criminal Justice: Juan Meraz MD AST [Catalytic activity/Vol] 20 U/L Normal 10-35 [facility] Comment on above: Performed By: #### 7 600, 496, 68390 #### [facility] [place] [address] [place] [address] Associate Professor Of Criminal Justice: Juan Meraz MD Bilirubin [Mass/Vol] 0.6 mg/dL Normal 0.2-1.2 [facility] Comment on above: Performed By: #### 7 600, 496, 92121 #### [facility] [address], [address] [place] [address] Associate Professor Of Criminal Justice: Juan Meraz MD Calcium [Mass/Vol] 9.9 mg/dL Normal 8.6-10.3 [facility] Comment on above: Performed By: #### 7 600, 496, 24747 #### [facility] [place] [address] Associate Professor Of Criminal Justice: Juan Meraz MD Chloride [Moles/Vol] 102 mmol/L Normal 98-110 [facility] Comment on above: Performed By: #### 7 600, 496, 01878 #### [facility] [place] [address] Associate Professor Of Criminal Justice: Juan Meraz MD CO2 [Moles/Vol] 28 mmol/L Normal 20-32 [facility] Comment on above: Performed By: #### 7 600, 496, 72661 #### [facility] [place] [address] Associate Professor Of Criminal Justice: Juan Meraz MD Creatinine [Mass/Vol] 1.59 mg/dL High 0.70-1.[address] [facility] Comment on above: Result Comment: For patients >49 years of age, the reference limit for Creatinine is approximately 13% higher for people identified as -Monegasque. Performed By: #### 7 600, 496, 74089 #### [facility] [place] [address] Associate Professor Of Criminal Justice: Juan Meraz MD eGFR NON-AFR. MONTSERRATIAN 46 mL/min/1.73m2 Low > OR = 60 [facility] Comment on above: Performed By: #### 7 600, 496, 51219 #### [facility] [address] [place] [address] Associate Professor Of Criminal Justice: Juan Meraz MD GFR/1.73 sq M.predicted among blacks MDRD (S/P/Bld) [Vol rate/Area] 53 mL/min/{1.73_m2} Low > OR = 60 [facility] Comment on above: Performed By: #### 7 600, 496, 78208 #### [facility] [place] [address] Associate Professor Of Criminal Justice: Juan Meraz MD Globulin (S) [Mass/Vol] 2.7 g/dL Normal 1.9-3.7 [facility] Comment on above: Performed By: #### 7 600, 496, 74548 #### [facility] [place] [address] Associate Professor Of Criminal Justice: Juan Meraz MD Glucose [Mass/Vol] 176 mg/dL High 65-139 [facility] Comment on above: Result Comment: Non-fasting reference interval For someone without known diabetes, a glucose value >125 mg/dL indicates that they may have diabetes and this should be confirmed with a follow-up test. Performed By: #### 7 600, 496, 79627 #### [facility] [place] [address] Associate Professor Of Criminal Justice: Juan Meraz MD Potassium [Moles/Vol] 4.2 mmol/L Normal 3.5-5.[address] [facility] Comment on above: Performed By: #### 7 600, 496, 34449 #### [facility] [place] [address] Associate Professor Of Criminal Justice: Juan Meraz MD Protein [Mass/Vol] 7.3 g/dL Normal 6.1-8.1 [facility] Comment on above: Performed By: #### 7 600, 496, 54080 #### [facility] [place] [address] Associate Professor Of Criminal Justice: Juan Meraz MD Sodium [Moles/Vol] 138 mmol/L Normal 135-146 [facility] Comment on above: Performed By: #### 7 600, 496, 36175 #### [facility] [address], [address] [place] [address] Associate Professor Of Criminal Justice: Juan Meraz MD Urea nitrogen [Mass/Vol] 48 mg/dL High 7-25 [facility] Comment on above: Performed By: #### 7 600, 496, 12327 #### [facility] [address], [address] [place] [address] Associate Professor Of Criminal Justice: Juan Meraz MD Urea nitrogen/Creatinine [Mass ratio] 30 mg/mg High 6-22 [facility] Comment on above: Performed By: #### 7 600, 496, 00078 #### [facility] of [address], [address] [place] [address] Associate Professor Of Criminal Justice: Juan Meraz MD HEMOGLOBIN A1con 04-16-2021 HEMOGLOBIN [...] 1 0165, 496, 905 #### [facility] [address], [address] [place] [address] Associate Professor Of Criminal Justice: Juan Meraz MD LIPID PANEL, STANDARDon 04-02 Cholesterol [Mass/Vol] 108 mg/dL Normal <200 [facility] Comment on above: Order Comment: FASTI NG:NO FASTING: NO Performed By: #### 7 600, 496, 63716 #### [facility] [address], [address] [place] [address] Associate Professor Of Criminal Justice: Juan Meraz MD Cholesterol in HDL [Mass/Vol] 47 mg/dL Normal > OR = 40 [facility] Comment on above: Order Comment: FASTI NG:NO FASTING: NO Performed By: #### 7 600, 496, 88257 #### [facility] [place] [address] Associate Professor Of Criminal Justice: Juan Meraz MD Cholesterol in LDL [Mass/Vol] [...] LDL-C. Cam[place] BAH et al. TABITHA. 2013;310(19): 8565-3700 ([email or web address]/[email or web address]) Performed By: #### 7 600, 496, 76882 #### [facility] [address], [address] [place] [address] Associate Professor Of Criminal Justice: Juan Meraz MD Cholesterol.total/Choles terol in HDL [Mass ratio] 2.3 {ratio} Normal <5.0 [facility] Comment on above: Order Comment: FASTI NG:NO FASTING: NO Performed By: #### 7 600, 496, 95308 #### [facility] [place] [address] Associate Professor Of Criminal Justice: Juan Meraz MD NON HDL CHOLESTEROL 61 mg/dL (calc) Normal <130 [facility] Comment on above: Order Comment: FASTI NG:NO FASTING: NO Result Comment: For patients with diabetes plus 1 major ASCVD risk factor, treating to a non-HDL-C goal of <100 mg/dL (LDL-C of <70 mg/dL) is considered a therapeutic option. Performed By: #### 7 600, 496, 79863 #### [facility] [address], [address] [place] [address] Associate Professor Of Criminal Justice: Juan Meraz MD Triglyceride [Mass/Vol] 102 mg/dL Normal <150 [facility] Comment on above: Order Comment: FASTI NG:NO FASTING: NO Performed By: #### 7 600, 496, 19307 #### [facility] [address], [address] [place] [address] Associate Professor Of Criminal Justice: Juan Meraz MD CT ANKLE RT WO CONon 022 CT ANKLE RT WO CON Normal [facility] XR ANKLE RT MIN 3 VIEWSon XR ANKLE RT MIN 3 VIEWS Normal [facility] ACID FAST SMEAR AND CXon Acid Fast Culture Negative Normal [facility] Comment on above: Result Comment: No a rj fast bacilli isolated after 6 weeks. Performed By: #### A FB ####[facility] [address]zriqg[address] [place] [address]Dr. Biancalan Reagan Acid Fast Smear Negative Normal [facility] Comment on above: Performed By: #### A FB ####[facility] Lzzkckiyhe[address] [place], [place] [address]Dr. Biancalan [employer] Specimen Processing Direct Inoculation [facility] Comment on above: Performed By: #### A FB ####[facility] Rcsbaajgtg34[address] [place], [place] [address]Dr. Yilan Reagan ACID FAST SMEAR AND CXon Acid Fast Culture Negative Normal [facility] Comment on above: Result Comment: No a rj fast bacilli isolated after 6 weeks. Performed By: #### A FB ####[facility] Mtdihnudjf13[address] [place] [address]Dr. Yilan Reagan Acid Fast Smear Negative Normal [facility] Comment on above: Performed By: #### A FB ####[facility] Anmpuhknsj8[address] [place], [place] [address]Dr. Biancalan [employer] Specimen Processing Tissue Grinding [facility] Comment on above: Performed By: #### A FB ####[facility] Nlsasccqto55[address] [place], [place] [address]Dr. Biancalan [employer] Specimen Processing Direct Inoculation Normal [facility] Comment on above: Performed By: #### A FB ####[facility] Uzedwlvjry[address] [place], [place] [address]Dr. Anjali Reagan FUNGAL CULTUREon 03-15-2021 Fungus (Mycology) Culture Final report Normal [facility] Comment on above: Performed By: #### C XFUN ####[facility] Keplyihjcq120[address] [place], [place] [address]Dr. Anjali Reagan Fungus Stain Final report Normal [facility] Comment on above: Performed By: #### C XFUN ####[facility] Dijyagjsrd474[address] [place], [place] [address]Dr. Anjali Reagan Result 1 Comment Normal [facility] Comment on above: Result Comment: MIRIAN/ Calcofluor preparation: no fungus observed. Performed By: #### C XFUN ####[facility] Zeixwnxtbr9[address] [place], [place] [address]Dr. Anjali Reagan Result Comment: No y east or mold isolated after 4 weeks. FUNGAL CULTUREon 03-09-2021 Fungus (Mycology) Culture Final report [facility] Comment on above: Performed By: #### C XFUN ####[facility] Cscnyvhvqj[address] [place], [place] [address]Dr. Anjali Reagan Fungus Stain Final report Normal [facility] Comment on above: Performed By: #### C XFUN ####[facility] Mizmppeeeb[address] [place], [place] [address]Dr. Anjali Reagan Result 1 Comment Normal [facility] Comment on above: Result Comment: MIRIAN/ Calcofluor preparation: no fungus observed. Performed By: #### C XFUN ####[facility] Yupvjjwmkq604[address] [place], [place] [address]Dr. Anjali Reagan Result Comment: No y east or mold isolated after 4 weeks. XR ANKLE RT MIN 3 VIEWSon XR ANKLE RT MIN 3 VIEWS Normal T he [facility] Otolaryngology Office/Clinic Noteon 02-28-2021 Otolaryngology Office/Clinic Note [...] time. They were unable to travel to [place] as he required another right ankle surgery. [...] Dr. Freed. Previous pathology by physician in [place] about 1 year ago. PMHx of multiple [...] postauricular m (more content not included)... Normal [facility] CBC W MANUAL DIFFon 02-13-20 21 ATYPICAL LYMPH # Normal [facility] Comment on above: Performed By: #### C CORI ####[facility] Sjurhwushg[address] [place] [address]Dr. Anjali Reagan ATYPICAL LYMPH % Normal [facility] Comment on above: Performed By: #### C CORI ####[facility] Znjfpnpdec[address] [place], [place] [address]Dr. Anjali Reagan BAND # 0.3 103/ul Normal 0.0-0.3 [facility] Comment on above: Performed By: #### C CORI ####[facility] Pcmbttbvzf[address] [place], [place] [address]Dr. Anjali Reagan BAND % 4 % Normal 0-5 [facility] Comment on above: Performed By: #### C CORI ####[facility] Joewjdieqo8[address] [place], [place] [address]Dr. Anjali Reagan BASOM # 0.00 103/ul Normal 0.00-0.10 [facility] Comment on above: Performed By: #### C CORI ####[facility] Rdezcrslnl43[address] [place], [place] [address]Dr. Anjali Reagan BASOM % 0.0 % Critically low 0.2-2.0 [facility] Comment on above: Performed By: #### C CORI ####[facility] Zkgcgzcgpq[address] [place], [place] [address]Dr. Anjali Reagan BLAST # Normal [facility] Comment on above: Performed By: #### C CORI ####[facility] Eyntnxzuap[address] [place], [place] [address]Dr. Biancalan Reagan BLAST % Normal [facility] Comment on above: Performed By: #### C CORI ####[facility] Smxsgnoscd[address] [place], [place] [address]Dr. Yilan Reagan CORRECTED WBC Normal 4.0-11.0 [facility] Comment on above: Performed By: #### C BCMAN ####[facility] Qdsangfzmo9378 [place] [id number]. Anjali Reagan EOS # 0.28 103/ul Normal 0.00-0.70 [facility] Comment on above: Performed By: #### C BCMAN ####[facility] Szcxeqmamq5261 [place] [id number]. Anjali Reagan EOS% 4.0 % Normal 0.9-7.0 [facility] Comment on above: Performed By: #### C BCMAN ####[facility] Eajcsmbste7861 [place] [id number]. Anjali Reagan HCT 28.5 % Critically low 42.0-54.0 [facility] Comment on above: Performed By: #### C BCFIONA ####[facility] Weivxnyvqh35[address] [place] [address]Dr. Anjali Reagan HGB 8.6 g/dl Critically low 14.0-18.0 [facility] Comment on above: Performed By: #### C BCFIONA ####[facility] Pnxpnaeohz6698 [place] [id number]. Anjali Reagan HYPOCHROMASIA 3+ Normal [facility] Comment on above: Performed By: #### C BCFIONA ####[facility] Djpbdnjdvt1106 [place] [address]Dr. Anjali Reagan LYMPHM # 0.57 103/ul Critically low 1.20-3.80 [facility] Comment on above: Performed By: #### C BCFIONA ####[facility] Auuduvywcl5830 [place] [address]Dr. Anjali Reagan LYMPHM% 8.0 % Critically low 20.5-60.0 [facility] Comment on above: Performed By: #### C BCMAN ####[facility] Qhxbnthrfg0770 [place] [id number]. Anjali Reagan MCH 25.4 pg Critically low 25.9-34.0 [facility] Comment on above: Performed By: #### C CORI ####[facility] Hcdlezyndb2143 [place] [id number]. Anjali Reagan MCHC 30.2 g/dl Normal 29.9-35.2 [facility] Comment on above: Performed By: #### C CORI ####[facility] Izfxbhjfdh2503 [place] [id number]. Anjali Reagan MCV 84.1 fL Normal 80.0-94.0 [facility] Comment on above: Performed By: #### C BCFIONA ####[facility] Ydedaqomxy7297 [place] [id number]. Anjali Reaagn METAMYELOCYTE # Normal [facility] Comment on above: Performed By: #### C CORI ####[facility] Amxclkkmce52[address] [place], [place] [address]Dr. Anjali Reagan METAMYELOCYTE % Normal [facility] Comment on above: Performed By: #### C CORI ####[facility] Evuyoafegv[address] [place], [place] [address]Dr. Anjali Reagan MICROCYTOSIS 2+ Normal [facility] Comment on above: Performed By: #### C CORI ####[facility] Isygnezfde7[address] [place], [place] [address]Dr. Anjali Reagan MONOM# 0.14 103/ul Critically low 0.30-0.80 [facility] Comment on above: Performed By: #### C CORI ####[facility] Tndazimhui[address] [place], [place] [address]Dr. Anjali Reagan MONOM% 2.0 % Normal 1.7-12.0 [facility] Comment on above: Performed By: #### C CORI ####[facility] Ogxmevmzib[address] [place], [place] [address]Dr. Anjali Reagan MPV 9.3 fL Critically low 9.5-13.5 [facility] Comment on above: Performed By: #### C CORI ####[facility] Suwlnlawbr[address] [place], [place] [address]Dr. Anjali Reagan MYELOCYTE # Normal [facility] Comment on above: Performed By: #### C CORI ####[facility] Lxvfnhzhcs7505 [place] [id number]. Anjali Reagan MYELOCYTE % Normal [facility] Comment on above: Performed By: #### C CORI ####[facility] Tpkaacrjrf6755 [place] [id number]. Anjali Reagan NRBC 1 Normal [facility] Comment on above: Performed By: #### C CORI ####[facility] Ntwfrkrrnm1563 [place] [id number]. Anjali Reagan PLT 186 103/ul Normal 150-450 [facility] Comment on above: Performed By: #### C CORI ####[facility] Abslvbzdwo4773 [place] [id number]. Anjali Reagan RBC 3.39 106/ul Critically low 4.70-6.10 [facility] Comment on above: Performed By: #### C CORI ####[facility] Imydvnvvas1838 [place] [id number]. Anjali Reagan RDW 18.8 % Critically high 11.0-15.0 [facility] Comment on above: Performed By: #### C CORI ####[facility] Qdbtcxyqdt8327 [place] [id number]. Anjali Reagan SEG # 5.82 103/ul Normal 1.40-6.50 [facility] Comment on above: Performed By: #### C CORI ####[facility] Lucfbvvkfp2256 [place] [id number]. Anjali Reagan SEG % 82.0 % Critically high 43.0-75.0 [facility] Comment on above: Performed By: #### C CORI ####[facility] Kgkhbwhyot[address] [place], [place] [address]Dr. Anjali Reagan WBC 7.1 103/ul Normal 4.0-11.0 [facility] Comment on above: Performed By: #### C CORI ####[facility] Ykkegymefv[address] [place], [place] [address]Dr. Anjali Reagan POINT OF CARE GLUCOSEon 11-1 3-2021 Glucose [Mass/Vol] 175 mg/dL Critically high 74-106 [facility] Comment on above: Performed By: #### P OCGLUC ####[facility] [address]um[address] [place] [address]Dr. Anjali Reagan PROF 14(COMP METB)on 02-12- 021 Albumin [Mass/Vol] 2.4 g/dL Critically low 3.5-5.0 [facility] Comment on above: Performed By: #### C MP ####[facility] Osfrfalshi[address] [place] [address]Dr. Anjali Reagan Albumin/Globulin [Mass ratio] 0.6 {ratio} Normal [facility] Comment on above: Performed By: #### C MP ####[facility] Ckdnkfirdi2[address] [place] [address]Dr. Anjali Reagan ALP [Catalytic activity/Vol] 93 U/L Normal 38-126 [facility] Comment on above: Performed By: #### C MP ####[facility] Mitiilpvnm[address] [place], [place] [address]Dr. Anjali Reagan ALT [Catalytic activity/Vol] 18 U/L Critically low 21-72 [facility] Comment on above: Performed By: #### C MP ####[facility] Trmngfqopu51[address] [place] [address]Dr. Anjali Reagan Anion gap [Moles/Vol] 12.5 mmol/L Normal [facility] Comment on above: Performed By: #### C MP ####[facility] Twdosmncmk[address] [place] [address]Dr. Anjali Reagan AST [Catalytic activity/Vol] 30 U/L Normal 17-59 [facility] Comment on above: Performed By: #### C MP ####[facility] Nqhqfrohuu24[address] [place] [address]Dr. Anjali Reagan Bilirubin [Mass/Vol] 0.5 mg/dL Normal 0.2-1.3 [facility] Comment on above: Performed By: #### C MP ####[facility] Avjjionaer[address] [place], [place] [id number]. Anjali Reagan Calcium [Mass/Vol] 8.5 mg/dL Normal 8.4-10.2 [facility] Comment on above: Performed By: #### C MP ####[facility] Joxajyjbaj[address] [place] [address]Dr. Anjali Reagan Chloride [Moles/Vol] 103 mmol/L Normal 98-107 [facility] Comment on above: Performed By: #### C MP ####[facility] Kkfsunwwby[address] [place], [place] [address]Dr. Anjali Reagan CO2 [Moles/Vol] 25.8 mmol/L Normal 22.0-30.0 [facility] Comment on above: Performed By: #### C MP ####[facility] Dzzejpbwot[address] [place], [place] [address]Dr. Anjali Tez Creatinine [Mass/Vol] 1.09 mg/dL Normal 0.66-1.25 [facility] Comment on above: Performed By: #### C MP ####[facility] Vpoxlxsven[address] [place], [place] [address]Dr. Anjali Tez EGFR-AF MONTSERRATIAN >60 Normal >=[address] [facility] Comment on above: Performed By: #### C MP ####[facility] Karolwdivz[address] [place], [place] [address]Dr. Anjali Tez EGFR-NON AF [place] >60 Normal >=60 [facility] Comment on above: Performed By: #### C MP ####[facility] Xgmobghafm43[address] [place], [place] [address]Dr. Anjali Tez Globulin (S) [Mass/Vol] 3.7 g/dL Normal [facility] Comment on above: Performed By: #### C MP ####[facility] Pfrleysnoc[address] [place], [place] [address]Dr. Biancaramona Tez Glucose [Mass/Vol] 165 mg/dL Critically high 74-106 [facility] Comment on above: Performed By: #### C MP ####[facility] Ieppwqvglg[address] [place], [place] [address]Dr. Anjali Reagan Potassium [Moles/Vol] 4.3 mmol/L Normal 3.4-5.0 [facility] Comment on above: Performed By: #### C MP ####[facility] Edufqlkold379[address] [place], [place] [address]Dr. Anjali Reagan Protein [Mass/Vol] 6.1 g/dL Normal 6.1-8.2 [facility] Comment on above: Performed By: #### C MP ####[facility] Pjezsuztjk[address] [place], [place] [address]Dr. Anjali Tez Sodium [Moles/Vol] 137 mmol/L Normal 137-145 [facility] Comment on above: Performed By: #### C MP ####[facility] Lcnvmkrces5513[address] [place], [place] [address]Dr. Anjali Tez Urea nitrogen [Mass/Vol] 24.0 mg/dL Critically high 9.0-20 .0 [facility] Comment on above: Performed By: #### C MP ####[facility] Xlzpehlckw005[address] [place], [place] [address]Dr. Anjali Tez Urea nitrogen/Creatinine [Mass ratio] 22.0 mg/mg Normal [facility] Comment on above: Performed By: #### C MP ####[facility] Bimglsmmyx85[address] [place], [place] [address]Dr. Anjali Tez ALBUMINon 02-11-2021 Albumin [Mass/Vol] 2.8 g/dL Critically low 3.5-5.0 [facility] Comment on above: Performed By: #### P REALB, ALB ####[facility] Beulfoksri[address] [place], [place] [address]Dr. Anjali Tez CBC AUTO DIFFon 02-11-2021 BASO # 0.0 103/ul Normal 0.0-0.1 [facility] Comment on above: Performed By: #### C BC ####[facility] Siiqndlnsr348[address] [place], [place] [address]Dr. Biancaramona Reagan Basophils/100 WBC (Bld) 0.5 % Normal 0.2-2.0 [facility] Comment on above: Performed By: #### C BC ####[facility] Ztefmenxkj89[address] [place] [id number]. Anjali Reagan EO # 0.5 103/ul Normal 0.0-0.7 [facility] Comment on above: Performed By: #### C BC ####[facility] Kcfggwgcyy4024 [place] [id number]. Anjali Reagan Eosinophils/100 WBC (Bld) 7.4 % Critically high 0.9-7.0 [facility] Comment on above: Performed By: #### C BC ####[facility] Zizqkilhlz10[address] [place] [address]Dr. Anjali Reagan Erythrocyte distribution width (RBC) [Ratio] 18.7 % Critically high 11.0-15.0 [facility] Comment on above: Performed By: #### C BC ####[facility] Xkldilfkxh[address] [place], [place] [address]Dr. Anjali Reagan Hematocrit (Bld) [Volume fraction] 30.7 % Critically low 42.0-54.0 [facility] Comment on above: Performed By: #### C BC ####[facility] Mbtgqxnqne46[address] [place] [address]Dr. Anjali Reagan Hemoglobin (Bld) [Mass/Vol] 9.5 g/dL Critically low 14.0-18.0 [facility] Comment on above: Performed By: #### C BC ####[facility] Lmtagxdxai34[address] [place] [address]Dr. Anjali Reagan IG # 0.05 10e3/ul Critically high 0.00-0.03 [facility] Comment on above: Performed By: #### C BC ####[facility] Wgfsolelnw8[address] [place] [address]Dr. Anjali Reagan IG % 0.8 % Critically high 0.0-0.5 [facility] Comment on above: Performed By: #### C BC ####[facility] Zqeaegxwam18[address] [place] [address]Dr. Anjali Reagan LYMPH # 0.6 103/ul Critically low 1.2-3.8 [facility] Comment on above: Performed By: #### C BC ####[facility] Mrrobvcctv9148 [place] [address]Dr. Biancaramona Reagan Lymphocytes/100 WBC (Bld) 8.5 % Critically low 20.5-60.0 [facility] Comment on above: Performed By: #### C BC ####[facility] Huanmcgywq16[address] [place] [address]Dr. Anjali Reagan MANUAL DIFF REQ NO Normal [facility] Comment on above: Performed By: #### C BC ####[facility] Lrqbbxguov064[address] [place], [place] [address]Dr. Anjali Reagan MCH (RBC) [Entitic mass] 25.3 pg Critically low 25.9-34 .0 [facility] Comment on above: Performed By: #### C BC ####[facility] Kiarahthsq264[address] [place], [place] [address]Dr. Anjali Reagan MCHC (RBC) [Mass/Vol] 30.9 g/dL Normal 29.9-35.2 [facility] Comment on above: Performed By: #### C BC ####[facility] Doadcrtvmb250[address] [place], [place] [address]Dr. Anjali Reagan MCV (RBC) [Entitic vol] 81.6 fL Normal 80.0-94.0 [facility] Comment on above: Performed By: #### C BC ####[facility] Lfzymvsfst[address] [place], [place] [address]Dr. Anjali Reagan MONO # 0.8 103/ul Normal 0.3-0.8 [facility] Comment on above: Performed By: #### C BC ####[facility] Yrduloycdh[address] [place], [place] [address]Dr. Anjali Reagan Monocytes/100 WBC (Bld) 12.2 % Critically high 1.7-12. 0 [facility] Comment on above: Performed By: #### C BC ####[facility] Mqbrnuzfvn[address] [place], [place] [address]Dr. Anjali Reagan NEUT # 4.6 103/ul Normal 1.4-6.5 [facility] Comment on above: Performed By: #### C BC ####[facility] Toqmbsdehe58[address] [place] [id number]. Anjali Reagan Neutrophils/100 WBC (Bld) 70.6 % Normal 43.0-75.0 [facility] Comment on above: Performed By: #### C BC ####[facility] Cohpznthsk23[address] [place] [id number]. Anjali Reagan Platelet mean volume (Bld) [Entitic vol] 9.6 fL Normal 9.5-13.5 [facility] Comment on above: Performed By: #### C BC ####[facility] Hcxmegvrqz8774 [place] [id number]. Anjali Reagan PLT 205 103/ul Normal 150-450 [facility] Comment on above: Performed By: #### C BC ####[facility] Rtypczjcbp1271 [place] [id number]. Anjali Reagan RBC 3.76 106/ul Critically low 4.70-6.10 [facility] Comment on above: Performed By: #### C BC ####[facility] Jezssyaaug6218 [place] [id number]. Anjali Reagan WBC 6.5 103/ul Normal 4.0-11.0 [facility] Comment on above: Performed By: #### C BC ####[facility] Tbduncivpi[address] [place], [place] [address]Dr. Anjali Reagan CULTURE ANAEROBICon 02-12-20 21 CULTURE ANAEROBIC Specimen Comments: RIGHT ANKLE JOINT Culture Observations: NO GROWTH AT 72 HRS Normal [facility] Comment on above: Performed By: #### A NACX ####[facility] Ozpptukagw12[address] [place] [id number]. Anjali Reagan CULTURE OTHERon 02-11-2021 CULTURE OTHER Specimen Comments: RIGHT ANKLE JOINT Culture Observations: NO GROWTH AT 72 HRS Normal [facility] Comment on above: Performed By: #### O THCX ####[facility] Aroklxbrky28[address] [place] [id number]. Anjali Reagan GRAM STAINon 02-11-2021 COMMENTS NO ORGANISMS OBSERVED Normal [facility] Comment on above: Performed By: #### G STAIN ####[facility] Taenqqezom[address] [place] [address]Dr. Anjali Reagan DIPHTHEROIDS Normal [facility] Comment on above: Performed By: #### G STAIN ####[facility] Uhinnqfutz[address] [place] [address]Dr. Anjali Reagan EPITHELIALS Normal [facility] Comment on above: Performed By: #### G STAIN ####[facility] Rzghkchfcc45[address] [place] [address]Dr. Anjali Reagan FUNGAL ELEMENTS Normal [facility] Comment on above: Performed By: #### G STAIN ####[facility] Bygzqvjlqa8[address] [place], [place] [address]Dr. Anjali Reagan GRAM NEG BACILLI Normal [facility] Comment on above: Performed By: #### G STAIN ####[facility] Acpplrisit337[address] [place], [place] [address]Dr. Anjali Reagan GRAM NEG DIPPLOCOCCI Normal [facility] Comment on above: Performed By: #### G STAIN ####[facility] Irsdkzujzr348[address] [place], [place] [address]Dr. Anjali Reagan GRAM POS BACILLI Normal [facility] Comment on above: Performed By: #### G STAIN ####[facility] Tfgzeykeve370[address] [place], [place] [address]Dr. Anjali Reagan GRAM POSITIVE COCCI Normal [facility] Comment on above: Performed By: #### G STAIN ####[facility] Iozevggbwj479[address] [place], [place] [address]Dr. Anjali Reagan GRAM STAIN SOURCE Right ankle joint Normal [facility] Comment on above: Performed By: #### G STAIN ####[facility] [address]iz[address]zdfgmk[address] [place] [address]Dr. Anjali Reagan GS_DIPTH Normal [facility] Comment on above: Performed By: #### G STAIN ####[facility] Fdbjfyqcsa04[address] [place] [address]Dr. Anjali Reagan WBC FEW Normal [facility] Comment on above: Performed By: #### G STAIN ####[facility] Eeadalvbjk34[address] [place] [address]Dr. Anjali Reagan POINT OF CARE GLUCOSEon 01-31 Glucose [Mass/Vol] 196 mg/dL Critically high 74-106 [facility] Comment on above: Performed By: #### P OCGLUC ####[facility] Okghnxpbiy46[address] [place] [address]Dr. Anjali Reagan Glucose [Mass/Vol] 176 mg/dL Critically high 74-106 [facility] Comment on above: Performed By: #### P OCGLUC ####[facility] Dxmnxktemh16[address] [place] [address]Dr. Anjali Reagan PREALBUMINon 02-11-2021 Prealbumin [Mass/Vol] 17.8 mg/dL Normal 17.6-36.0 [facility] Comment on above: Performed By: #### P REALB, ALB ####[facility] Khpxznymnr85[address] [place], [place] [address]Dr. Anjali Reagan PROF 14(COMP METB)on 021 Albumin [Mass/Vol] 2.6 g/dL Critically low 3.5-5.0 [facility] Comment on above: Performed By: #### B MP, CMP ####[facility] Zdptqkcmmn9[address] [place], [place] [address]Dr. Anjali Reagan Albumin/Globulin [Mass ratio] 0.6 {ratio} Normal [facility] Comment on above: Performed By: #### B MP, CMP ####[facility] Jvkmlcmnmn94[address] [place], [place] [address]Dr. Anjali Reagan ALP [Catalytic activity/Vol] 104 U/L Normal 38-126 [facility] Comment on above: Performed By: #### B MP, CMP ####[facility] Dwhcdqslpa204[address] [place], [place] [address]Dr. Anjali Reagan ALT [Catalytic activity/Vol] 17 U/L Critically low 21-72 [facility] Comment on above: Performed By: #### B MP, CMP ####[facility] Ofeacidzgv5[address] [place], [place] [address]Dr. Anjali Reagan AST [Catalytic activity/Vol] 26 U/L Normal 17-59 [facility] Comment on above: Performed By: #### B MP, CMP ####[facility] Ybysljhsly964[address] [place], [place] [address]Dr. Anjali Reagan Bilirubin [Mass/Vol] 0.5 mg/dL Normal 0.2-1.3 [facility] Comment on above: Performed By: #### B MP, CMP ####[facility] Haxubnbfph9[address] [place], [place] [address]Dr. Anjali Reagan Globulin (S) [Mass/Vol] 4.1 g/dL Normal [facility] Comment on above: Performed By: #### B MP, CMP ####[facility] Eplrjomobe900[address] [place], [place] [address]Dr. Anjali Reagan Protein [Mass/Vol] 6.7 g/dL Normal 6.1-8.2 [facility] Comment on above: Performed By: #### B MP, CMP ####[facility] Ckdyajyrfy7[address] [place], [place] [address]Dr. Anjali Reagan PROF CHEM 8 (BAS METB)on Anion gap [Moles/Vol] 11.3 mmol/L Normal [facility] Comment on above: Performed By: #### B MP, CMP ####[facility] Hrvahfowcj19[address] [place], [place] [address]Dr. Anjali Reagan Calcium [Mass/Vol] 9.0 mg/dL Normal 8.4-10.2 [facility] Comment on above: Performed By: #### B MP, CMP ####[facility] Phnphxjacl554[address] [place], [place] [address]Dr. Anjali Reagan Chloride [Moles/Vol] 101 mmol/L Normal 98-107 [facility] Comment on above: Performed By: #### B MP, CMP ####[facility] Tihytwzcbq9[address] [place], [place] [address]Dr. Anjali Reagan CO2 [Moles/Vol] 28.0 mmol/L Normal 22.0-30.[address] [facility] Comment on above: Performed By: #### B MP, CMP ####[facility] Eifkpsommi8915 [place] [id number]. Anjali Reagan Creatinine [Mass/Vol] 1.23 mg/dL Normal 0.66-1.25 [facility] Comment on above: Performed By: #### B MP, CMP ####[facility] Lusmscxujl6357 [place] [id number]. Anjali Reagan EGFR-AF [place] >60 Normal >=60 [facility] Comment on above: Performed By: #### B MP, CMP ####[facility] Qiahvmhqpw5071 [place] [id number]. Anjali Reagan EGFR-NON AF [place] 59 mL/min/1.73m2 Critically low >=60 [facility] Comment on above: Performed By: #### B MP, CMP ####[facility] Stotpegujq9727 [place] [id number]. Anjali Reagan Glucose [Mass/Vol] 109 mg/dL Critically high 74-106 [facility] Comment on above: Performed By: #### B MP, CMP ####[facility] Cbhetsvujw3889 [place] [id number]. Anjali Reagan Potassium [Moles/Vol] 3.9 mmol/L Normal 3.4-5.0 [facility] Comment on above: Performed By: #### B MP, CMP ####[facility] Ntxxzwntqq[address] [place], [place] [id number]. Anjali Reagan Sodium [Moles/Vol] 136 mmol/L Critically low 137-[address] [facility] Comment on above: Performed By: #### B MP, CMP ####[facility] Ziohcnzuhw3668 [place] [id number]. Anjali Reagan Urea nitrogen [Mass/Vol] 32.0 mg/dL Critically high 9.0-20 .0 [facility] Comment on above: Performed By: #### B MP, CMP ####[facility] Kpcgamqsud[address] [place], [place] [id number]. Biancaramona Reagan Urea nitrogen/Creatinine [Mass ratio] 26.0 mg/mg Normal [facility] Comment on above: Performed By: #### B MP, CMP ####[facility] Znistniarl4510 [place] [id number]. Anjali Reagan VANCOMYCIN TROUGHon 02-12-20 VANCOMYCIN TROUGH 9.8 ug/ml Normal 5.0-20.0 [facility] Comment on above: Performed By: #### V ANCT ####[facility] Bfwmtkxaaw2125 [place] [id number]. Anjali Reagan XR ANKLE RT 2Von 02-11-2021 XR ANKLE RT 2V Normal [facility] XR FOOT RT MIN 3 VIEWSon XR FOOT RT MIN 3 VIEWS Normal Th [facility] CBC AUTO DIFFon 02-10-2021 BASO # 0.0 103/ul Normal 0.0-0.1 [facility] Comment on above: Performed By: #### C BC ####[facility] Xabdyjgysv80[address] [place] [address]Dr. Anjali Reagan Basophils/100 WBC (Bld) 0.3 % Normal 0.2-2.0 [facility] Comment on above: Performed By: #### C BC ####[facility] Quiwleepbh6[address] [place] [address]Dr. Anjali Reagan EO # 0.2 103/ul Normal 0.0-0.7 [facility] Comment on above: Performed By: #### C BC ####[facility] Txtvfrcdjz8296 [place] [id number]. Anjali Reagan Eosinophils/100 WBC (Bld) 2.7 % Normal 0.9-7.0 [facility] Comment on above: Performed By: #### C BC ####[facility] Inblquqnhz8435 [place] [id number] Reagan Erythrocyte distribution width (RBC) [Ratio] 18.8 % Critically high 11.0-15.0 [facility] Comment on above: Performed By: #### C BC ####[facility] Cbebqurgve1459 [place] [id number] Reagan Hematocrit (Bld) [Volume fraction] 31.6 % Critically low 42.0-54.0 [facility] Comment on above: Performed By: #### C BC ####[facility] Itllvqnmia0400 [place] [id number] Anjali Tez Hemoglobin (Bld) [Mass/Vol] 9.6 g/dL Critically low 14.0-18.0 [facility] Comment on above: Performed By: #### C BC ####[facility] Wvaxuuwttw33[address] [place] [address]DrVeronica Valenzuelaramona Tez IG # 0.04 10e3/ul Critically high 0.00-0.03 [facility] Comment on above: Performed By: #### C BC ####[facility] Imswvkqinv[address] [place] [address]DrVeronica Reagan IG % 0.6 % Critically high 0.0-0.5 [facility] Comment on above: Performed By: #### C BC ####[facility] Mbgbsmozxk2551 [place] [address]DrVeronica Reagan LYMPH # 0.9 103/ul Critically low 1.2-3.8 [facility] Comment on above: Performed By: #### C BC ####[facility] Dmtmzmjyvm4[address] [place] [address]DrVeronica Reagan Lymphocytes/100 WBC (Bld) 12.2 % Critically low 20.5-60.0 [facility] Comment on above: Performed By: #### C BC ####[facility] Thluqmfegp15[address] [place] [address]DrVeronica Reagan MANUAL DIFF REQ NO Normal [facility] Comment on above: Performed By: #### C BC ####[facility] Vryxsmhwgh7791 [place] [id number] Reagan MCH (RBC) [Entitic mass] 24.7 pg Critically low 25.9-34 .0 [facility] Comment on above: Performed By: #### C BC ####[facility] Uonoiuguhi1143 [place] [id number] Reagan MCHC (RBC) [Mass/Vol] 30.4 g/dL Normal 29.9-35.2 [facility] Comment on above: Performed By: #### C BC ####[facility] Dcrbkzqyef9225 [place] [address]DrVeronica Anjali Reagan MCV (RBC) [Entitic vol] 81.4 fL Normal 80.0-94.0 [facility] Comment on above: Performed By: #### C BC ####[facility] Trqpyomtic7199 [place] [address]DrVeronica Valenzuelaramona Tez MONO # 0.7 103/ul Normal 0.3-0.8 [facility] Comment on above: Performed By: #### C BC ####[facility] Osjmpyivqc3752 [place] [address]DrVeronica Reagan Monocytes/100 WBC (Bld) 9.9 % Normal 1.7-12.0 [facility] Comment on above: Performed By: #### C BC ####[facility] [address]hsuuajeq[address] [place], [place] [address]Dr. Biancaramona Tez NEUT # 5.3 103/ul Normal 1.4-6.5 [facility] Comment on above: Performed By: #### C BC ####[facility] Kekgxcaxtl[address] [place], [place] [address]DrVeronica Biancaramona Reagan Neutrophils/100 WBC (Bld) 74.3 % Normal 43.0-75.0 [facility] Comment on above: Performed By: #### C BC ####[facility] Gnafnrthyw9621 [place] [address]DrVeronica Reagan Platelet mean volume (Bld) [Entitic vol] 9.6 fL Normal 9.5-13.5 [facility] Comment on above: Performed By: #### C BC ####[facility] Gwcbmuswgf8725 [place] [address]DrVeronica Reagan PLT 218 103/ul Normal 150-450 [facility] Comment on above: Performed By: #### C BC ####[facility] Qlseaelckz8128 [place] [id number] Reagan RBC 3.88 106/ul Critically low 4.70-6.10 [facility] Comment on above: Performed By: #### C BC ####[facility] Zozgzsqlku0573 [place] [address]Dr. Anjali eRagan WBC 7.1 103/ul Normal 4.0-11.0 [facility] Comment on above: Performed By: #### C BC ####[facility] Gsgsicspck34[address] [place] [address]Dr. Anjali Reagan POINT OF CARE GLUCOSEon 01-31 Glucose [Mass/Vol] 219 mg/dL Critically high 74-106 [facility] Comment on above: Performed By: #### P OCGLUC ####[facility] Ubdcwwvldm7207 [place] [address]Dr. Anjali Reagan Glucose [Mass/Vol] 136 mg/dL Critically high 74-106 [facility] Comment on above: Performed By: #### P OCGLUC ####[facility] Knpgmmvbxb2727 [place] [address]Dr. Anjali Reagan Glucose [Mass/Vol] 119 mg/dL Critically high 74-106 [facility] Comment on above: Performed By: #### P OCGLUC ####[facility] Xoyeebyehg[address] [place] [address]DrVeronica Reagan PROF 14(COMP METB)on 021 Albumin [Mass/Vol] 2.8 g/dL Critically low 3.5-5.0 [facility] Comment on above: Performed By: #### C ALEA, BMP ####[facility] Imajzyepim[address] [place] [address]Dr. Anjali Reagan Albumin/Globulin [Mass ratio] 0.7 {ratio} Normal [facility] Comment on above: Performed By: #### C ALEA, BMP ####[facility] Nlgdllqcvu9[address] [place] [address]Dr. Anjali Reagan ALP [Catalytic activity/Vol] 109 U/L Normal 38-126 [facility] Comment on above: Performed By: #### C ALEA, BMP ####[facility] Obyoxupkym[address] [place] [address]Dr. Anjali Reagan ALT [Catalytic activity/Vol] 23 U/L Normal 21-72 [facility] Comment on above: Performed By: #### C MP, BMP ####[facility] Jcgzankkji[address] [place], [place] [address]Dr. Anjali Reagan AST [Catalytic activity/Vol] 24 U/L Normal 17-59 [facility] Comment on above: Performed By: #### C MP, BMP ####[facility] Oadikzvaud[address] [place], [place] [address]Dr. Anjali Reagan Bilirubin [Mass/Vol] 0.4 mg/dL Normal 0.2-1.3 [facility] Comment on above: Performed By: #### C ALEA, BMP ####[facility] Nnquxrssgb107[address] [place], [place] [address]Dr. Anjali Reagan Globulin (S) [Mass/Vol] 4.1 g/dL Normal [facility] Comment on above: Performed By: #### C ALEA, BMP ####[facility] Uossbsjxgh[address] [place], [place] [address]Dr. Anjali Reagan Protein [Mass/Vol] 6.9 g/dL Normal 6.1-8.2 [facility] Comment on above: Performed By: #### C MP, BMP ####[facility] Yyqrlhicaf[address] [place], [place] [address]Dr. Anjali Reagan PROF CHEM 8 (BAS METB)on Anion gap [Moles/Vol] 13.0 mmol/L Normal [facility] Comment on above: Performed By: #### C MP, BMP ####[facility] Qwkwcrzzlq[address] [place], [place] [address]Dr. Anjali Reagan Calcium [Mass/Vol] 9.4 mg/dL Normal 8.4-10.2 [facility] Comment on above: Performed By: #### C MP, BMP ####[facility] Uhtmgaptmb193[address] [place], [place] [address]Dr. Anjali Reagan Chloride [Moles/Vol] 104 mmol/L Normal 98-107 [facility] Comment on above: Performed By: #### C MP, BMP ####[facility] Keqxzoybry55[address] [place] [id number]. Anjali Reagan CO2 [Moles/Vol] 27.7 mmol/L Normal 22.0-30.0 [facility] Comment on above: Performed By: #### C MP, BMP ####[facility] Hxwzsegzpk[address] [place] [address]Dr. Anjali Reagan Creatinine [Mass/Vol] 1.19 mg/dL Normal 0.66-1.25 [facility] Comment on above: Performed By: #### C MP, BMP ####[facility] Gimfrusewn[address] [place] [address]Dr. Anjali Reagan EGFR-AF MONTSERRATIAN >60 Normal >=60 [facility] Comment on above: Performed By: #### C ALEA, BMP ####[facility] Ovhxpitvup[address] [place], [place] [address]Dr. Anjali Reagan EGFR-NON AF MONTSERRATIAN >60 Normal >=60 [facility] Comment on above: Performed By: #### C ALEA, BMP ####[facility] [address]fa[address]qwomf[address] [place] [address]Dr. Anjali Reagan Glucose [Mass/Vol] 81 mg/dL Normal 74-106 [facility] Comment on above: Performed By: #### C ALEA, BMP ####[facility] Sguwiusfte[address] [place], [place] [address]Dr. Anjali Reagan Potassium [Moles/Vol] 4.1 mmol/L Normal 3.4-5.0 [facility] Comment on above: Performed By: #### C MP, BMP ####[facility] Egpxhgbuct37[address] [place] [address]Dr. Anjali Reagan Sodium [Moles/Vol] 141 mmol/L Normal 137-145 [facility] Comment on above: Performed By: #### C MP, BMP ####[facility] Xbzatjhpng079[address] [place], [place] [address]Dr. Anjali Reagan Urea nitrogen [Mass/Vol] 41.0 mg/dL Critically high 9.0-20 .0 [facility] Comment on above: Performed By: #### C MP, BMP ####[facility] Jtabvbxlbm39[address] [place] [address]Dr. Anjali Reagan Urea nitrogen/Creatinine [Mass ratio] 34.4 mg/mg Normal [facility] Comment on above: Performed By: #### C ALEA, BMP ####[facility] Ahtfnuvvkt[address] [place] [address]Dr. Anjali Reagan CBC W MANUAL DIFFon 02-10-20 21 ANISOCYTOSIS SLIGHT Normal [facility] Comment on above: Performed By: #### C BCMAN ####[facility] Iydcrzkjkn[address] [place] [address]Dr. Anjali Reagan ATYPICAL LYMPH # Normal [facility] Comment on above: Performed By: #### C CORI ####[facility] Rzodrpudqf[address] [place], [place] [address]Dr. Anjali Reagan ATYPICAL LYMPH % Normal [facility] Comment on above: Performed By: #### C CORI ####[facility] Xfkiowkshu656[address] [place], [place] [address]Dr. Yilan Reagan BAND # Normal 0.0-0.3 [facility] Comment on above: Performed By: #### C CORI ####[facility] Onzngpcbcz675[address] [place], [place] [address]Dr. Yilan Reagan BAND % Normal 0-5 [facility] Comment on above: Performed By: #### C BCFIONA ####[facility] Mnoyiynboi[address] [place], [place] [address]Dr. Anjali Reagan BASOM # 0.00 103/ul Normal 0.00-0.10 [facility] Comment on above: Performed By: #### C SAUMYAMAN ####[facility] Aqvhzfmqih[address] [place], [place] [address]Dr. Anjali Reagan BASOM % 0.0 % Critically low 0.2-2.0 [facility] Comment on above: Performed By: #### C BCFIONA ####[facility] Hulrzdcwim[address] [place], [place] [address]Dr. Yilan Reagan BLAST # Normal [facility] Comment on above: Performed By: #### C CORI ####[facility] Jrh[address]udhly93[address] [place] [id number]. Anjali Reagan BLAST % Normal [facility] Comment on above: Performed By: #### C CORI ####[facility] Qvcmgdcsoe3869 [place] [id number]. Anjali Reagan CORRECTED WBC Normal 4.0-11.0 [facility] Comment on above: Performed By: #### C CORI ####[facility] Bxzhzkkwha07[address] [place] [id number]. Anjali Reagan EOS # 0.00 103/ul Normal 0.00-0.70 [facility] Comment on above: Performed By: #### C CORI ####[facility] Vnzvurttze[address] [place] [address]Dr. Anjali Reagan EOS% 0.0 % Critically low 0.9-7.0 [facility] Comment on above: Performed By: #### C CORI ####[facility] Srqbpgtvat5772 [place] [id number]. Anjali Reagan HCT 31.1 % Critically low 42.0-54.0 [facility] Comment on above: Performed By: #### C CORI ####[facility] Dwsrrntoso1877 [place] [id number]. Anjali Reagan HGB 9.6 g/dl Critically low 14.0-18.0 [facility] Comment on above: Performed By: #### C CORI ####[facility] Fnslyvonvw4659 [place] [id number]. Anjali Reagan LYMPHM # 0.73 103/ul Critically low 1.20-3.80 [facility] Comment on above: Performed By: #### C CORI ####[facility] Sasojfarbw4365 [place] [id number]. Anjali Reagan LYMPHM% 7.0 % Critically low 20.5-60.0 [facility] Comment on above: Performed By: #### C CORI ####[facility] Gzjiikmhzk[address] [place], [place] [id number]. Anjali Reagan MCH 25.1 pg Critically low 25.9-34.0 [facility] Comment on above: Performed By: #### C CORI ####[facility] Oawxjtpugs0711 [place] [id number]. Anjali Reagan MCHC 30.9 g/dl Normal 29.9-35.2 [facility] Comment on above: Performed By: #### C CORI ####[facility] Hrnkzbkann0225 [place] [id number]. Anjali Reagan MCV 81.4 fL Normal 80.0-94.0 [facility] Comment on above: Performed By: #### C CORI ####[facility] Atrwidueks0287 [place] [id number]. Anjali Reagan METAMYELOCYTE # Normal [facility] Comment on above: Performed By: #### C CORI ####[facility] Lwkebrctoe2693 [place] [id number]. Anjali Reagan METAMYELOCYTE % Normal [facility] Comment on above: Performed By: #### C CORI ####[facility] Tddzeuhppw1146 [place] [id number]. Anjali Reagan MONOM# 0.31 103/ul Normal 0.30-0.80 [facility] Comment on above: Performed By: #### C CORI ####[facility] Ypvrqbhvjj0881 [place] [id number]. Anjali Reagan MONOM% 3.0 % Normal 1.7-12.0 [facility] Comment on above: Performed By: #### C CORI ####[facility] Cojfjmyxdj1358 [place] [id number]. Anjali Reagan MPV 9.9 fL Normal 9.5-13.5 [facility] Comment on above: Performed By: #### C CORI ####[facility] Terecccwbf2323 [place] [id number]. Anjali Reagan MYELOCYTE # Normal [facility] Comment on above: Performed By: #### C CORI ####[facility] Qcsrvkngsq2999 [place] [id number]. Anjali Reagan MYELOCYTE % Normal [facility] Comment on above: Performed By: #### C CORI ####[facility] Qhyfkxzfpc2593 [place] [id number]. Anjali Reagan NRBC Normal [facility] Comment on above: Performed By: #### C CORI ####[facility] Odfjfjpxwe7114 [place] [id number]. Anjali Reagan OVALOCYTES SLIGHT Normal [facility] Comment on above: Performed By: #### C CORI ####[facility] Enpjyetfur6475 [place] [id number]. Anjali Reagan PLT 211 103/ul Normal 150-450 [facility] Comment on above: Performed By: #### C CORI ####[facility] Eouhhezgde6207 [place] [id number]. Anjali Reagan POIKILOCYTOSIS SLIGHT Normal [facility] Comment on above: Performed By: #### C CORI ####[facility] Xiidrsnswi[address] [place], [place] [id number]. Anjali Reagan RBC 3.82 106/ul Critically low 4.70-6.10 [facility] Comment on above: Performed By: #### C CORI ####[facility] Pgleyrizfn8151 [place] [id number]. Anjali Reagan RDW 18.4 % Critically high 11.0-15.0 [facility] Comment on above: Performed By: #### C CORI ####[facility] Mgpdsxwxxu8097 [place] [id number]. Anjali Reagan SEG # 9.36 103/ul Critically high 1.40-6.50 [facility] Comment on above: Performed By: #### C CORI ####[facility] Ceqvkkxqdu9092 [place] [id number]. Anjali Reagan SEG % 90.0 % Critically high 43.0-75.0 [facility] Comment on above: Performed By: #### C CORI ####[facility] Nuwoofgkvr032[address] [place] [address]Dr. Anjali Reagan WBC 10.4 103/ul Normal 4.0-11.0 [facility] Comment on above: Performed By: #### C BCMAN ####[facility] Stegrbznfi[address] [place] [address]Dr. Anjali Reagan HEP B SURFACE ANTIGEN SCREEN on 02-09-2021 HBsAg Screen Negative Normal Negative [facility] Comment on above: Performed By: #### H BSANS ####[facility] Kncsydeoja[address] [place], [place] [address]Dr. Anjali Reagan HEPATITIS C ANTIBODYon 02-09 Hep C Virus Ab <0.1 Normal 0.0-0.9 [facility] Comment on above: Result Comment: Nega tive: < 0.8 Indeterminate: 0.8 - 0.9 Positive: > 0.9 . The CDC recommends that a positive HCV antibody result be followed up with a HCV Nucleic Acid Amplification test (362592). Performed By: #### H CV ####[facility] Pbkvqbcjej54[address] [place], [place] [address]Dr. Anjali Reagan HIV 1 AND 2 WITH REFLEXon HIV Screen 4th Generation wRfx Non-Reactive Normal Non Reactive [facility] Comment on above: Performed By: #### H IV12 ####[facility] Jianrpkxqi0[address] [place] [address]Dr. Anjali Reagan POINT OF CARE GLUCOSEon 01-31 Glucose [Mass/Vol] 170 mg/dL Critically high 74-106 [facility] Comment on above: Performed By: #### P OCGLUC ####[facility] Oahpatpmmm[address] [place] [address]Dr. Anjali Reagan Glucose [Mass/Vol] 265 mg/dL Critically high 74-106 [facility] Comment on above: Performed By: #### P OCGLUC ####[facility] Svpvccbape[address] [place], [place] [address]Dr. Anjali Reagan Glucose [Mass/Vol] 319 mg/dL Critically high 74-106 [facility] Comment on above: Performed By: #### P OCGLUC ####[facility] Uiqgjapyby47[address] [place] [address]Dr. Anjali Reagan PROF 14(COMP METB)on 021 Albumin [Mass/Vol] 2.8 g/dL Critically low 3.5-5.0 [facility] Comment on above: Performed By: #### C MP ####[facility] Hwwrafauzw1789 [place] [address]Dr. Anjali Reagan Albumin/Globulin [Mass ratio] 0.7 {ratio} Normal [facility] Comment on above: Performed By: #### C MP ####[facility] Nqwuqobaup[address] [place], [place] [address]Dr. Anjali Reagan ALP [Catalytic activity/Vol] 117 U/L Normal 38-126 [facility] Comment on above: Performed By: #### C MP ####[facility] Nuxcwkxzhq326[address] [place], [place] [address]Dr. Anjali Reagan ALT [Catalytic activity/Vol] 21 U/L Normal 21-72 [facility] Comment on above: Performed By: #### C MP ####[facility] Ghkfuuzyel235[address] [place], [place] [address]Dr. Anjali Reagan Anion gap [Moles/Vol] 13.0 mmol/L Normal [facility] Comment on above: Performed By: #### C MP ####[facility] Disickdiyy[address] [place], [place] [address]Dr. Anjali Reagan AST [Catalytic activity/Vol] 21 U/L Normal 17-59 [facility] Comment on above: Performed By: #### C MP ####[facility] Rlfpwnkwxj94[address] [place], [place] [address]Dr. Anjali Reagan Bilirubin [Mass/Vol] 0.5 mg/dL Normal 0.2-1.3 [facility] Comment on above: Performed By: #### C MP ####[facility] Eljtmlulvx857[address] [place], [place] [address]Dr. Anjali Reagan Calcium [Mass/Vol] 9.3 mg/dL Normal 8.4-10.2 [facility] Comment on above: Performed By: #### C MP ####[facility] Jwljouhjsz7862 [place] [address]Dr. Anjali Reagan Chloride [Moles/Vol] 100 mmol/L Normal 98-107 [facility] Comment on above: Performed By: #### C MP ####[facility] Nrkfxvjiwa7951 [place] [id number]. Anjali Reagan CO2 [Moles/Vol] 27.5 mmol/L Normal 22.0-30.[address] [facility] Comment on above: Performed By: #### C MP ####[facility] Yuvjnlxlie165[address] [place], [place] [address]Dr. Anjali Reagan Creatinine [Mass/Vol] 1.49 mg/dL Critically high 0.66-1.25 [facility] Comment on above: Performed By: #### C MP ####[facility] Rqkkvejbwc9[address] [place], [place] [address]Dr. Anjali Reagan EGFR-AF MONTSERRATIAN 58 mL/min/1.73m2 Critically low >=60 [facility] Comment on above: Performed By: #### C MP ####[facility] Xvwlqwazvf[address] [place], [place] [address]Dr. Anjali Reagan EGFR-NON AF [place]ERR[place]IAN 48 mL/min/1.73m2 Critically low >=60 [facility] Comment on above: Performed By: #### C MP ####[facility] Myedmrfzty45[address] [place], [place] [address]Dr. Anjali Reagan Globulin (S) [Mass/Vol] 4.2 g/dL Normal [facility] Comment on above: Performed By: #### C MP ####[facility] Owdeiftisx056[address] [place], [place] [address]Dr. Anjali Reagan Glucose [Mass/Vol] 276 mg/dL Critically high 74-106 [facility] Comment on above: Performed By: #### C MP ####[facility] Vlxcqczucv[address] [place], [place] [address]Dr. Anjali Reagan Potassium [Moles/Vol] 4.5 mmol/L Normal 3.4-5.0 [facility] Comment on above: Performed By: #### C MP ####[facility] Jbzjvnvryj3013 [place] [id number]. Biancaramona Reagan Protein [Mass/Vol] 7.0 g/dL Normal 6.1-8.2 [facility] Comment on above: Performed By: #### C MP ####[facility] Ndlpvqwesp3622 [place] [id number]. Biancaramona Reagan Sodium [Moles/Vol] 136 mmol/L Critically low 137-[address] [facility] Comment on above: Performed By: #### C MP ####[facility] Clwmuwsyqc8721 [place] [address]Dr. Anjali Reagan Urea nitrogen [Mass/Vol] 42.0 mg/dL Critically high 9.0-20 .0 [facility] Comment on above: Performed By: #### C MP ####[facility] Rdliurwzbl[address] [place], [place] [address]Dr. Anjali Reagan Urea nitrogen/Creatinine [Mass ratio] 28.2 mg/mg Normal [facility] Comment on above: Performed By: #### C MP ####[facility] Xzgrnemhxq9833 [place] [address]Dr. Anjali Reagan RPR QUANTon 02-09-2021 Rapid Plasma Reagin, Quant Non-Reactive Normal NonRea<1:1 [facility] Comment on above: Performed By: #### R PRQ ####[facility] Xdxsiapbvn[address] [place], [place] [address]Dr. Anjali Reagan XR ANKLE RT 2Von 02-09-2021 XR ANKLE RT 2V Normal [facility] XR TIB_FIB RT 2Von XR TIB_FIB RT 2V Normal [facility] CRPon 02-08-2021 CRP 3.2 mg/dL Critically high <=1.0 [facility] Comment on above: Performed By: #### C RP ####[facility] Brvcytexld[address] [place], [place] [address]Dr. Anjali Reagan CULTURE ANAEROBICon 02-09-20 21 CULTURE ANAEROBIC Specimen Comments: RIGHT FOOT IRRIGATION SWAB Culture Observations: NO GROWTH AT 72 HRS Normal [facility] Comment on above: Performed By: #### A NACX ####[facility] Bss[address]rzusu[address] [place], [place] [address]Oo. Yilan Reagan CULTURE ANAEROBIC Specimen Comments: RIGHT LEG REAMINGS Culture Observations: NO GROWTH OF ANAEROBES AT 72 HOURS. [facility] Comment on above: Performed By: #### A NACX ####[facility] Kprhrmssrr5315 [place], [place] [address]Xy. Yilan Reagan CULTURE ANAEROBIC Culture Observations : NO GROWTH AT 72 HRS [facility] Comment on above: Performed By: #### A NACX ####[facility] [address] [place] [id number]. Yilan Reagan CULTURE ANAEROBIC Specimen Comments: RIGHT TIBIA BONE Culture Observations: NO GROWTH AT 72 HRS [facility] Comment on above: Performed By: #### A NACX ####[facility] Tslawhvwpa[address] [place], [place] [id number]. Yilan Reagan CULTURE ANAEROBIC Specimen Comments: RIGHT CALCANEOUS BONE Culture Observations: NO GROWTH OF ANAEROBES AT 72 HOURS. [facility] Comment on above: Performed By: #### A NACX ####[facility] Jageubjayp[address] [place], [place] [address]Dr. Yilan Reagan CULTURE ANAEROBIC Specimen Comments: RIGHT ANKLE ABSCESS Culture Observations: NO GROWTH AT 72 HRS [facility] Comment on above: Performed By: #### A NACX ####[facility] Ambkcoycbb[address] [place], [place] [id number]. Yilan Reagan CULTURE OTHERon 02-08-2021 CULTURE OTHER Specimen Comments: RIGHT LEG REAMINGS Culture Observations: NORMAL SKIN ARELI. [facility] Comment on above: Performed By: #### O THCX ####[facility] Avzaapadoy[address] [place], [place] [address]Yx. Yilan Reagan CULTURE OTHER Specimen Comments: RIGHT FOOT IRRIGATION SWAB Culture Observations: NO GROWTH AT 72 HRS [facility] Comment on above: Performed By: #### O THCX ####[facility] [address] [place] [id number]. Yilan Reagan CULTURE OTHER Specimen Comments: RIGHT CALCANEOUS BONE Culture Observations: NORMAL SKIN ARELI. Normal [facility] Comment on above: Performed By: #### O THCX ####[facility] K[address]jheqvn65[address] [place] [id number]. Anjali Reagan CULTURE OTHER Specimen Comments: RIGHT TIBIA BONE Culture Observations: NO GROWTH AT 72 HRS Normal [facility] Comment on above: Performed By: #### O THCX ####[facility] Kpexkikgxj7432 [place] [id number]. Anjali Reagan CULTURE OTHER Specimen Comments: RIGHT TALUS BONE Culture Observations: NORMAL SKIN ARELI. Normal [facility] Comment on above: Performed By: #### O THCX ####[facility] Ivbmnpkyjt2435 [place] [id number]. Anjali Reagan CULTURE OTHER Specimen Comments: RIGHT ANKLE ABSCESS Culture Observations: NO GROWTH AT 72 HRS Normal [facility] Comment on above: Performed By: #### O THCX ####[facility] Flmvjtjrow[address] [place], [place] [id number]. Anjali Reagan GRAM STAINon 02-08-2021 COMMENTS NO ORGANISMS OBSERVED Normal [facility] Comment on above: Performed By: #### G STAIN ####[facility] Lexwkijkbp[address] [place], [place] [address]Dr. Anjali Reagan DIPHTHEROIDS Normal [facility] Comment on above: Performed By: #### G STAIN ####[facility] Kiqqququul69[address] [place] [id number]. Anjali Reagan EPITHELIALS Normal [facility] Comment on above: Performed By: #### G STAIN ####[facility] Rkizmsgskg9383 [place] [id number]. Anjali Reagan FUNGAL ELEMENTS Normal [facility] Comment on above: Performed By: #### G STAIN ####[facility] Usbihmrnxd8[address] [place], [place] [id number]. Anjali Reagan GRAM NEG BACILLI Normal [facility] Comment on above: Performed By: #### G STAIN ####[facility] Xxingcwvqy[address] [place], [place] [id number]. Anjali Reagan GRAM NEG DIPPLOCOCCI Normal [facility] Comment on above: Performed By: #### G STAIN ####[facility] Ghvwaicpsx39[address] [place] [address]Dr. Anjali Reagan GRAM POS BACILLI Normal [facility] Comment on above: Performed By: #### G STAIN ####[facility] Vxvetsesfm69[address] [place] [address]Dr. Anjali Reagan GRAM POSITIVE COCCI Normal The [facility] Comment on above: Performed By: #### G STAIN ####[facility] Byvcgeahfn32[address] [place] [address]Dr. Anjali Reagan GRAM STAIN SOURCE RIGHT LEG REAMINGS Normal [facility] Comment on above: Performed By: #### G STAIN ####[facility] Wyaevqddxq114[address] [place], [place] [address]Dr. Anjali Reagan GRAM STAIN SOURCE RIGHT FOOT POST IRRIGATION SWAB Normal [facility] Comment on above: Performed By: #### G STAIN ####[facility] Hndjlvwpwq[address] [place], [place] [address]Dr. Anjali Reagan GS_DIPTH Normal [facility] Comment on above: Performed By: #### G STAIN ####[facility] Xgqvkfnyad8701 [place] [address]Dr. Anjali Reagan WBC MODERATE Normal [facility] Comment on above: Performed By: #### G STAIN ####[facility] Egtggeqlib43[address] [place], [place] [address]Dr. Anjali Reagan WBC NONE SEEN Normal [facility] Comment on above: Performed By: #### G STAIN ####[facility] Znjaxgoggd86[address] [place] [address]Dr. Anjali Reagan COMMENTS NO ORGANISMS OBSERVED Normal [facility] Comment on above: Performed By: #### G STAIN ####[facility] Vmuzmxabox6[address] [place], [place] [address]Dr. Anjali Reagan DIPHTHEROIDS Normal [facility] Comment on above: Performed By: #### G STAIN ####[facility] Trthffvxlh7[address] [place] [address]Dr. Anjali Reagan EPITHELIALS Normal [facility] Comment on above: Performed By: #### G STAIN ####[facility] Qapccfgfoy9766 [place] [id number]. Anjali Reagan FUNGAL ELEMENTS Normal [facility] Comment on above: Performed By: #### G STAIN ####[facility] Swzyzgxdfh4600 [place] [id number]. Anjali Reagan GRAM NEG BACILLI Normal [facility] Comment on above: Performed By: #### G STAIN ####[facility] Jaoyxslfjv3096 [place] [address]Dr. Anjali Reagan GRAM NEG DIPPLOCOCCI Normal [facility] Comment on above: Performed By: #### G STAIN ####[facility] Hvdqwdbyex7153 [place] [address]Dr. Anjali Reagan GRAM POS BACILLI Normal [facility] Comment on above: Performed By: #### G STAIN ####[facility] Memgcppfbx[address] [place], [place] [address]Dr. Anjali Reagan GRAM POSITIVE COCCI Normal [facility] Comment on above: Performed By: #### G STAIN ####[facility] Lluglsfllq[address] [place] [address]Dr. Anjali Reagan GRAM STAIN SOURCE RIGHT TIBIA BONE Normal [facility] Comment on above: Performed By: #### G STAIN ####[facility] Dkurffvnwt8647 [place] [address]Dr. Anjali Reagan GRAM STAIN SOURCE RIGHT CALCANEOUS BONE Normal [facility] Comment on above: Performed By: #### G STAIN ####[facility] Guiqdbacbn5441 [place] [address]Dr. Anjali Reagan GRAM STAIN SOURCE RIGHT TALUS BONE Normal [facility] Comment on above: Performed By: #### G STAIN ####[facility] Swbcqmciqv6567 [place] [address]Dr. Anjali Reagan GS_DIPTH Normal [facility] Comment on above: Performed By: #### G STAIN ####[facility] Qubslyyrzd[address] [place] [address]Dr. Anjali Reagan WBC NONE SEEN Normal [facility] Comment on above: Performed By: #### G STAIN ####[facility] Hvqvozsxwl9135 [place] [id number]. Anjali Reagan WBC FEW Normal [facility] Comment on above: Performed By: #### G STAIN ####[facility] Xerxzmsxja9019 [place] [id number]. Anjali Reagan COMMENTS NO ORGANISMS OBSERVED Normal [facility] Comment on above: Performed By: #### G STAIN ####[facility] Tnctpkescu2639 [place] [phone]. Anjali Reagan DIPHTHEROIDS Normal [facility] Comment on above: Performed By: #### G STAIN ####[facility] Suoyqyxsqf8588 [place] [address]Dr. Anjali Reagan EPITHELIALS Normal [facility] Comment on above: Performed By: #### G STAIN ####[facility] Qzcyqhmigh449[address] [place], [place] [address]Dr. Anjali Reagan FUNGAL ELEMENTS Normal [facility] Comment on above: Performed By: #### G STAIN ####[facility] Lprsduzdqm612[address] [place], [place] [address]Dr. Anjali Reagan GRAM NEG BACILLI Normal [facility] Comment on above: Performed By: #### G STAIN ####[facility] Xnegbqsyvr376[address] [place], [place] [address]Dr. Anjali Reagan GRAM NEG DIPPLOCOCCI Normal [facility] Comment on above: Performed By: #### G STAIN ####[facility] Kekiclfvkw2565 [place] [address]Dr. Anjali Reagan GRAM POS BACILLI Normal [facility] Comment on above: Performed By: #### G STAIN ####[facility] Acqhdlbtmx7809 [place] [address]Dr. Anjali Reagan GRAM POSITIVE COCCI Normal [facility] Comment on above: Performed By: #### G STAIN ####[facility] Fkbmxmpqug4889 [place] [address]Dr. Anjali Reagan GRAM STAIN SOURCE RIGHT FOOT ABSCESS SWAB Normal [facility] Comment on above: Performed By: #### G STAIN ####[facility] Dwwgvqssos1254 [place] [address]Dr. Anjali Reagan GS_DIPTH Normal [facility] Comment on above: Performed By: #### G STAIN ####[facility] Jnzugajeld32[address] [place] [address]Dr. Anjali Tez WBC RARE Normal [facility] Comment on above: Performed By: #### G STAIN ####[facility] Muxgenewst4957 [place] [id number]. Anjali Tez HIV 1/2 RAPID (EXPOSURE ONLY )on 02-08-2021 HIV AB Negative [facility] Comment on above: Performed By: #### R PDHIV ####[facility] Pdxmhlgzhx18[address] [place], [place] [address]Dr. Anjali Reagan HIV AG Negative [facility] Comment on above: Performed By: #### R PDHIV ####[facility] Ycjwheiscz196207 [address] [place], [place] [address]Dr. Biancaramona Tez INTERNAL CONTROLS Within Normal Limits Normal Wi thin Normal Limits [facility] Comment on above: Performed By: #### R PDHIV ####[facility] Qfmjzhynhg938[address] [place], [place] [address]Dr. Anjali Reagan RAPID HIV INFO SEE BELOW [facility] Comment on above: Result Comment: This test is used for the initial screening of the exposure source. Confirmation of all results will be obtained through reference lab testing. Performed By: #### R PDHIV ####[facility] Xexveszlac[address] [place], [place] [address]Dr. Biancaramona Tez POINT OF CARE GLUCOSEon 11-0 Glucose [Mass/Vol] 400 mg/dL Critically high 74-106 [facility] Comment on above: Performed By: #### P OCGLUC ####[facility] Shzvfvhesz727[address] [place], [place] [address]Dr. Biancaramona Tez Glucose [Mass/Vol] 373 mg/dL Critically high 74-106 [facility] Comment on above: Performed By: #### P OCGLUC ####[facility] Jybsmgthrx217[address] [place], [place] [address]Dr. Biancaramona Reagan Glucose [Mass/Vol] 159 mg/dL Critically high 74-106 [facility] Comment on above: Performed By: #### P OCGLUC ####[facility] Bnigxnpiss[address] [place] [address]Dr. Anjali Reagan Glucose [Mass/Vol] 160 mg/dL Critically high 74-106 [facility] Comment on above: Performed By: #### P OCGLUC ####[facility] Ukkicfymnz0785 [place] [address]Dr. Anjali Reagan SED RATE WESTERGRENon 2020 SED RATE 51 mm/hr Critically high <=20 [facility] Comment on above: Performed By: #### S EDR ####[facility] Hhefeqphlu047[address] [place], [place] [address]Dr. Anjali Reagan CBC W MANUAL DIFFon 02-06-20 21 ATYPICAL LYMPH # Normal [facility] Comment on above: Performed By: #### C BCMAN ####[facility] Nrulyoyjnj077[address] [place], [place] [address]Dr. Anjali Reagan ATYPICAL LYMPH % Normal [facility] Comment on above: Performed By: #### C BCMAN ####[facility] Yrgqcwyyqh915[address] [place], [place] [address]Dr. Anjali Reagan BAND # 0.2 103/ul Normal 0.0-0.3 [facility] Comment on above: Performed By: #### C BCMAN ####[facility] Dmzjmfmihn[address] [place], [place] [address]Dr. Anjali Reagan BAND % 3 % Normal 0-5 [facility] Comment on above: Performed By: #### C BCMAN ####[facility] Mwqrrfekho9[address] [place], [place] [address]Dr. Anjali Reagan BASOM # 0.07 103/ul Normal 0.00-0.10 [facility] Comment on above: Performed By: #### C BCMAN ####[facility] Ilvunlloyi[address] [place], [place] [address]Dr. Anjali Reagan BASOM % 1.0 % Normal 0.2-2.0 [facility] Comment on above: Performed By: #### C BCMAN ####[facility] Ezkaoawwbx6652 [place], [place] [address]Ap. Anjali Reagan BLAST # Normal [facility] Comment on above: Performed By: #### C BCMAN ####[facility] Vynanxgkgf0421 [place] [id number]. Anjali Reagan BLAST % Normal [facility] Comment on above: Performed By: #### C BCMAN ####[facility] Eukgqyinoe7112 [place] [phone]. Anjali Reagan CORRECTED WBC Normal 4.0-11.0 [facility] Comment on above: Performed By: #### C BCMAN ####[facility] Digfaobhdc7135 [place] [address]Dr. Anjali Reagan EOS # 0.57 103/ul Normal 0.00-0.70 [facility] Comment on above: Performed By: #### C BCFIONA ####[facility] Koeztsfssg4094 [place] [address]Dr. Anjali Reagan EOS% 8.0 % Critically high 0.9-7.0 [facility] Comment on above: Performed By: #### C BCMAN ####[facility] Tqbstjcitm3509 [place] [id number]. Anjali Reagan HCT 32.9 % Critically low 42.0-54.0 [facility] Comment on above: Performed By: #### C BCFIONA ####[facility] Fqhbmxarsu6424 [place] [id number]. Anjali Reagan HGB 10.2 g/dl Critically low 14.0-18.0 [facility] Comment on above: Performed By: #### C BCMAN ####[facility] Wvevdotjgf8754 [place] [id number]. Anjali Reagan LYMPHM # 0.78 103/ul Critically low 1.20-3.80 [facility] Comment on above: Performed By: #### C BCMAN ####[facility] Sukvnptzfv6193 [place] [id number]. Anjali Reagan LYMPHM% 11.0 % Critically low 20.5-60.0 [facility] Comment on above: Performed By: #### C CORI ####[facility] Wqerdrwuil6883 [place] [address]Dr. Anjali Reagan MCH 24.9 pg Critically low 25.9-34.0 [facility] Comment on above: Performed By: #### C CORI ####[facility] Sborbwvbsd6730 [place] [id number]. Anjali Reagan MCHC 31.0 g/dl Normal 29.9-35.2 [facility] Comment on above: Performed By: #### C CORI ####[facility] Izxhbyecpv3049 [place] [id number]. Anjali Reagan MCV 80.4 fL Normal 80.0-94.0 [facility] Comment on above: Performed By: #### C CORI ####[facility] Vtgkzdcnyk[address] [place], [place] [address]Dr. Anjali Reagan METAMYELOCYTE # Normal [facility] Comment on above: Performed By: #### C CORI ####[facility] Aswfkpgmvu9008 [place] [id number]. Anjali Reagan METAMYELOCYTE % Normal [facility] Comment on above: Performed By: #### C CORI ####[facility] Ndudcycvcl5277 [place] [address]Dr. Anjali Reagan MONOM# 0.57 103/ul Normal 0.30-0.80 [facility] Comment on above: Performed By: #### C CORI ####[facility] Esatrvrycp6569 [place] [id number]. Anjali Reagan MONOM% 8.0 % Normal 1.7-12.0 [facility] Comment on above: Performed By: #### C CORI ####[facility] Jxohconbjs9339 [place] [id number]. Anjali Reagan MPV 9.2 fL Critically low 9.5-13.5 [facility] Comment on above: Performed By: #### C CORI ####[facility] Bmudgzuvzb3184 [place] [id number]. Anjali Reagan MYELOCYTE # Normal [facility] Comment on above: Performed By: #### C CORI ####[facility] Pkdbbsjqtt3692 [place] [id number]. Anjali Reagan MYELOCYTE % Normal [facility] Comment on above: Performed By: #### C CORI ####[facility] Clzzmhtfcj5198 [place] [id number]. Anjali Reagan NRBC Normal [facility] Comment on above: Performed By: #### C CORI ####[facility] Skpcanhjko6617 [place] [id number]. Anjali Reagan OVALOCYTES 1+ Normal [facility] Comment on above: Performed By: #### C CORI ####[facility] Cekvcjjdwk2157 [place] [id number]. Anjali Reagan PLT 209 103/ul Normal 150-450 [facility] Comment on above: Performed By: #### C CORI ####[facility] Hlmgpeoqpr9261 [place] [id number]. Anjali Reagan RBC 4.09 106/ul Critically low 4.70-6.10 [facility] Comment on above: Performed By: #### C CORI ####[facility] Fozbdntdot5747 [place] [address]Dr. Anjali Reagan RDW 18.2 % Critically high 11.0-15.0 [facility] Comment on above: Performed By: #### C CORI ####[facility] Bkuxoruauf5915 [place] [id number]. Anjali Reagan SEG # 4.90 103/ul Normal 1.40-6.50 [facility] Comment on above: Performed By: #### C CORI ####[facility] Qnjhcovvan3929 [place] [id number]. Anjali Reagan SEG % 69.0 % Normal 43.0-75.0 [facility] Comment on above: Performed By: #### C CORI ####[facility] Vurbyigtvn5242 [place] [address]Dr. Anjali Reagan WBC 7.1 103/ul Normal 4.0-11.0 [facility] Comment on above: Performed By: #### C BCMAN ####[facility] Xldnguqgrg9652 [place] [id number]. Anjali Reagan CT ABD/PELVIS WO CONon 02-05 CT ABD/PELVIS WO CON Normal [facility] Covid-19 PCR (CVDTB)on SARS-CoV-2 (COVID-19) RNA MEREDITH+probe Ql (Unsp spec) Not detected Normal NOT DETECTED [facility] Comment on above: Result Comment: This test is not yet approved or cleared by the [place] FDA. When there are no FDA-approved or cleared tests available, and other criteria are met, FDA can make tests available under an emergency access mechanism called an Emergency Use Authorization (EUA). The EUA for this test is supported by the Hand Folder of Health and Human Service's (HHS's) declaration [...] with SARS-CoV-2. Performed By: #### C VDTBH ####[facility] Tfuhvpsrqf0194 [place] [id number]. Anjali Reagan ER URINE PROFILEon Bilirubin Ql (U) Negative Normal NEGATIVE [facility] Comment on above: Performed By: #### E RUR ####[facility] Tbsktybdwj9130 [place] [id number] Biancaramona Reagan Clarity (U) CLEAR Normal CLEAR [facility] Comment on above: Performed By: #### E RUR ####[facility] Nsamdvcvyb3091 [place] [address]DrVeronica Reagan Color (U) LT. YELLOW Normal YELLOW [facility] Comment on above: Performed By: #### E RUR ####[facility] Vwwqfvkqev045[address] [place], [place] [address]Dr. Anjali Reagan ERUAHD A micrscopic examination will be performed if indicated. Normal [facility] Comment on above: Performed By: #### E RUR ####[facility] Wwayabpotf685[address] [place], [place] [address]Dr. Anjali Reagan Glucose Ql (U) Negative Normal NEGATIVE [facility] Comment on above: Performed By: #### E RUR ####[facility] Tvthlpycnt016[address] [place], [place] [address]Dr. Anjali Reagan Hemoglobin Ql (U) Negative Normal NEGATIVE [facility] Comment on above: Performed By: #### E RUR ####[facility] Koijzhlqod287[address] [place], [place] [address]Dr. Anjali Reagan Ketones Ql (U) Negative Normal NEGATIVE [facility] Comment on above: Performed By: #### E RUR ####[facility] Wnqnpcfahn9839[address] [place], [place] [address]Dr. Anjali Reagan LEUKOCYTES Negative Normal NEGATIVE [facility] Comment on above: Performed By: #### E RUR ####[facility] Laizygekth9[address] [place], [place] [address]Dr. Anjali Reagan Nitrite Ql (U) Negative Normal NEGATIVE [facility] Comment on above: Performed By: #### E RUR ####[facility] Mstoclomxc275[address] [place], [place] [address]Dr. Anjali Reagan pH (U) 6.0 [pH] Normal 5-9 [facility] Comment on above: Performed By: #### E RUR ####[facility] Wojzutcuff422[address] [place], [place] [address]Dr. Anjali Reagan SPEC GRAVITY 1.015 Normal 1.005-<=1.0 25 [facility] Comment on above: Performed By: #### E RUR ####[facility] Lzjlphsihw826[address] [place], [place] [address]Dr. Anjali Reagan UA PROTEIN TRACE Normal NEGATIVE/ TRACE [facility] Comment on above: Performed By: #### E RUR ####[facility] Bvyqsdokhv449[address] [place], [place] [address]Dr. Anjali Reagan UR MICRO IND NOT INDICATED Normal [facility] Comment on above: Performed By: #### E RUR ####[facility] Wzodfqhsqx8428 [place] [address]Dr. Anjali Reagan Urobilinogen Qn (U) 0.2 {Geremias'U}/dL Normal 0.2 - 1. 0 [facility] Comment on above: Performed By: #### E RUR ####[facility] Vvxfqteskt898[address] [place], [place] [address]DrVeronica Reagan PROF 14(COMP METB)on 021 Albumin [Mass/Vol] 2.8 g/dL Critically low 3.5-5.0 [facility] Comment on above: Performed By: #### C MP ####[facility] Fnugfometv070[address] [place], [place] [address]Dr. Anjali Reagan Albumin/Globulin [Mass ratio] 0.6 {ratio} Normal [facility] Comment on above: Performed By: #### C MP ####[facility] Gpcmbphxmf7[address] [place], [place] [address]Dr. Anjali Reagan ALP [Catalytic activity/Vol] 125 U/L Normal 38-126 [facility] Comment on above: Performed By: #### C MP ####[facility] Nwukwcktee105[address] [place], [place] [address]Dr. Anjali Reagan ALT [Catalytic activity/Vol] 22 U/L Normal 21-72 [facility] Comment on above: Performed By: #### C MP ####[facility] Wxaeifqaeb848[address] [place], [place] [address]Dr. Anjali Reagan Anion gap [Moles/Vol] 13.1 mmol/L Normal [facility] Comment on above: Performed By: #### C MP ####[facility] Ejijcwknva515[address] [place], [place] [address]Dr. Anjali Reagan AST [Catalytic activity/Vol] 26 U/L Normal 17-59 [facility] Comment on above: Performed By: #### C MP ####[facility] Vkxdqgpgxx5645 [place] [address]Dr. Anjali Tez Bilirubin [Mass/Vol] 0.8 mg/dL Normal 0.2-1.3 [facility] Comment on above: Performed By: #### C MP ####[facility] Yguysykgkp718[address] [place], [place] [address]Dr. Anjali Tez Calcium [Mass/Vol] 9.2 mg/dL Normal 8.4-10.2 [facility] Comment on above: Performed By: #### C MP ####[facility] Zesoyevfdp696[address] [place], [place] [address]Dr. Anjali eTz Chloride [Moles/Vol] 98 mmol/L Normal 98-107 [facility] Comment on above: Performed By: #### C MP ####[facility] Ukxkytzkpq124[address] [place], [place] [address]Dr. Anjali Tez CO2 [Moles/Vol] 28.7 mmol/L Normal 22.0-30.0 [facility] Comment on above: Performed By: #### C MP ####[facility] Rrkip[address] [place], [place] [address]Dr. Anjali Tez Creatinine [Mass/Vol] 1.62 mg/dL Critically high 0.66-1.25 [facility] Comment on above: Performed By: #### C MP ####[facility] Cnxzbrygym[address] [place], [place] [address]Dr. nAjali Tez EGFR-AF MONTSERRATIAN 52 mL/min/1.73m2 Critically low >=60 [facility] Comment on above: Performed By: #### C MP ####[facility] Nviqxlosxs[address] [place], [place] [address]Dr. Anjali Reagan EGFR-NON AF MONTSERRATIAN 43 mL/min/1.73m2 Critically low >=60 [facility] Comment on above: Performed By: #### C MP ####[facility] [address]qkeg[address]zay[address] [place], [place] [address]Dr. Anjali Reagan Globulin (S) [Mass/Vol] 4.6 g/dL Normal [facility] Comment on above: Performed By: #### C MP ####[facility] Klwhcpjdzr[address] [place], [place] [address]Dr. Biancaramona Tez Glucose [Mass/Vol] 192 mg/dL Critically high 74-106 [facility] Comment on above: Performed By: #### C MP ####[facility] Gdalnajspx[address] [place], [place] [address]Dr. Anjali Reagan Potassium [Moles/Vol] 4.8 mmol/L Normal 3.4-5.0 [facility] Comment on above: Performed By: #### C MP ####[facility] Dqadvzvrho[address] [place], [place] [address]Dr. Anjali Reagan Protein [Mass/Vol] 7.4 g/dL Normal 6.1-8.2 [facility] Comment on above: Performed By: #### C MP ####[facility] Evlpxdlqod[address] [place], [place] [address]Dr. Anjali Reagan Sodium [Moles/Vol] 135 mmol/L Critically low 137-145 [facility] Comment on above: Performed By: #### C MP ####[facility] Kmisancubg[address] [place], [place] [address]Dr. Anjali Reagan Urea nitrogen [Mass/Vol] 40.0 mg/dL Critically high 9.0-20 .0 [facility] Comment on above: Performed By: #### C MP ####[facility] Mnysojcquv[address] [place], [place] [address]Dr. Anjali Reagan Urea nitrogen/Creatinine [Mass ratio] 24.7 mg/mg Normal [facility] Comment on above: Performed By: #### C MP ####[facility] Styamwnupi64[address] [place], [place] [address]Dr. Anjali Reagan PROF CHEM 8 (BAS METB)on Anion gap [Moles/Vol] 13.4 mmol/L Normal [facility] Comment on above: Performed By: #### B MP ####[facility] Jfqrtddbuy8[address] [place], [place] [address]Dr. Anjali Reagan Calcium [Mass/Vol] 9.3 mg/dL Normal 8.4-10.2 [facility] Comment on above: Performed By: #### B MP ####[facility] [address] [place] [address]Dr. Anjali Reagan Chloride [Moles/Vol] 98 mmol/L Normal 98-107 [facility] Comment on above: Performed By: #### B MP ####[facility] [address] [place] [address]Dr. Anjali Reagan CO2 [Moles/Vol] 28.8 mmol/L Normal 22.0-30.0 [facility] Comment on above: Performed By: #### B MP ####[facility] Jfagnzpelw[address] [place], [place] [address]Dr. Anjali Reagan Creatinine [Mass/Vol] 1.72 mg/dL Critically high 0.66-1.25 [facility] Comment on above: Performed By: #### B MP ####[facility] Zdzknhbozh39[address] [place], [place] [address]Dr. Anjali Reagan EGFR-AF MONTSERRATIAN 49 mL/min/1.73m2 Critically low >=60 [facility] Comment on above: Performed By: #### B MP ####[facility] Bisqpaylzb[address] [place], [place] [address]Dr. Anjali Reagan EGFR-NON AF MONTSERRATIAN 40 mL/min/1.73m2 Critically low >=60 [facility] Comment on above: Performed By: #### B MP ####[facility] [address] [place] [address]Dr. Anjali Reagan Glucose [Mass/Vol] 204 mg/dL Critically high 74-106 [facility] Comment on above: Performed By: #### B MP ####[facility] Jhfxrujcaz[address] [place], [place] [address]Dr. Anjali Reagan Potassium [Moles/Vol] 4.2 mmol/L Normal 3.4-5.0 [facility] Comment on above: Performed By: #### B MP ####[facility] [address] [place], [place] [address]Ut. Anjali Reagan Sodium [Moles/Vol] 136 mmol/L Critically low 137-[address] [facility] Comment on above: Performed By: #### B MP ####[facility] R[address]wq13[address] [place], [place] [address]Gz. Anjali Reagan Urea nitrogen [Mass/Vol] 35.0 mg/dL Critically high 9.0-20 .0 [facility] Comment on above: Performed By: #### B MP ####[facility] S[address]ttk380[address] [place], [place] [address]Rr. Anjali Reagan Urea nitrogen/Creatinine [Mass ratio] 20.3 mg/mg Normal [facility] Comment on above: Performed By: #### B MP ####[facility] Yjmmtnehve7[address] [place], [place] [address]Oe. Anjali Reagan CT ANKLE RT WO CONon 021 CT ANKLE RT WO CON Normal [facility] XR ANKLE RT MIN 3 VIEWSon XR ANKLE RT MIN 3 VIEWS Normal [facility] XR ANKLE RT MIN 3 VIEWSon XR ANKLE RT MIN 3 VIEWS Normal [facility] Otolaryngology Office/Clinic Noteon 01-19-2021 Otolaryngology Office/Clinic [...] Dr. Freed. Previous pathology by physician in [place] about 1 year ago. PMHx of multiple [...] 2. Basal (more content not included)... Normal [facility] BASIC METABOLIC PANEL W/O CA on 01-15-2021 Chloride [Moles/Vol] 98 mmol/L Normal 98-110 [facility] Comment on above: Order Comment: FASTI NG:YESFASTING: YES Performed By: #### 1 5161, 887, 523 #### [facility] [address], [address] [place] [phone] Associate Professor Of Criminal Justice: Juan Meraz MD CO2 [Moles/Vol] 26 mmol/L Normal 20-32 [facility] Comment on above: Order Comment: FASTI NG:YESFASTING: YES Performed By: #### 1 0165, 497, 905 #### [facility] [place] [address] Associate Professor Of Criminal Justice: Juan Meraz MD Creatinine [Mass/Vol] 1.71 mg/dL High 0.70-1.[address] [facility] [address] [facility] Comment on above: Order Comment: FASTI NG:YESFASTING: YES Result Comment: For patients >49 years of age, the reference limit for Creatinine is approximately 13% higher for people identified as -Monegasque. Performed By: #### 1 0165, 936, 905 #### [facility] [place] [address] Associate Professor Of Criminal Justice: Juan Meraz MD eGFR NON-AFR. MONTSERRATIAN 42 mL/min/1.73m2 Low > OR = 60 [facility] Comment on above: Order Comment: FASTI NG:YESFASTING: YES Performed By: #### 1 016, 493, 905 #### [facility] [place] [address] Associate Professor Of Criminal Justice: Juan Meraz MD GFR/1.73 sq M.predicted among blacks MDRD (S/P/Bld) [Vol rate/Area] 48 mL/min/{1.73_m2} Low > OR = 60 [facility] Comment on above: Order Comment: FASTI NG:YESFASTING: YES Performed By: #### 1 0165, 496, 905 #### [facility] [address], [address] [place] [address] Associate Professor Of Criminal Justice: Juan Meraz MD Glucose [Mass/Vol] 186 mg/dL High 65-99 [facility] Comment on above: Order Comment: FASTI NG:YESFASTING: YES Result Comment: Fasting reference interval For someone without known diabetes, a glucose value >125 mg/dL indicates that they may have diabetes and this should be confirmed with a follow-up test. Performed By: #### 1 0165, 496, 905 #### [facility] [place] [address] Associate Professor Of Criminal Justice: Juan Meraz MD Potassium [Moles/Vol] 4.3 mmol/L Normal 3.5-5.[address] [facility] [address] [facility] Comment on above: Order Comment: FASTI NG:YESFASTING: YES Performed By: #### 1 0165, 496, 905 #### [facility] [place] [address] Associate Professor Of Criminal Justice: Juan Meraz MD Sodium [Moles/Vol] 137 mmol/L Normal 135-146 [facility] Comment on above: Order Comment: FASTI NG:YESFASTING: YES Performed By: #### 1 0165, 493, 905 #### [facility] [place] [address] Associate Professor Of Criminal Justice: Juan Meraz MD Urea nitrogen [Mass/Vol] 34 mg/dL High 7-25 [facility] Comment on above: Order Comment: FASTI NG:YESFASTING: YES Performed By: #### 1 0165, 49, 905 #### [facility] [place] [address] Associate Professor Of Criminal Justice: Juan Meraz MD Urea nitrogen/Creatinine [Mass ratio] 20 mg/mg Normal 6-22 [facility] Comment on above: Order Comment: FASTI NG:YESFASTING: YES Performed By: #### 1 0165, 493, 905 #### [facility] [place] [address] Associate Professor Of Criminal Justice: Juan Meraz MD CBC (INCLUDES DIFF/PLT)on Basophils (Bld) [#/Vol] 0.026 10*3/uL Normal 0-200 [facility] Comment on above: Performed By: #### 1 0165, 496, 905 #### [facility] [place] [address] Associate Professor Of Criminal Justice: Juan Meraz MD Basophils/100 WBC (Bld) 0.3 % Normal [facility] Comment on above: Performed By: #### 1 0165, 496, 905 #### [facility] of [place] [address] Associate Professor Of Criminal Justice: Juan Meraz MD Eosinophils (Bld) [#/Vol] 0.202 10*3/uL Normal 15-500 [facility] Comment on above: Performed By: #### 1 0165, 496, 905 #### [facility] of [place] [address] Associate Professor Of Criminal Justice: Juan Meraz MD Eosinophils/100 WBC (Bld) 2.3 % Normal [facility] Comment on above: Performed By: #### 1 0165, 496, 905 #### [facility] [place] [address] Associate Professor Of Criminal Justice: Juan Meraz MD Erythrocyte distribution width (RBC) [Ratio] 15.7 % High 11.0-15.0 [facility] Comment on above: Performed By: #### 1 016, 496, 905 #### [facility] [place] [address] Associate Professor Of Criminal Justice: Juan Meraz MD Hematocrit (Bld) [Volume fraction] 34.9 % Low 38.5-50.0 [facility] Comment on above: Performed By: #### 1 016, 490, 905 #### [facility] [place] [address] Associate Professor Of Criminal Justice: Juan Meraz MD Hemoglobin (Bld) [Mass/Vol] 10.9 g/dL Low 13.2-17.1 [facility] Comment on above: Performed By: #### 1 0165, 496, 905 #### [facility] [place] [address] Associate Professor Of Criminal Justice: Juan Meraz MD Lymphocytes (Bld) [#/Vol] 0.748 10*3/uL Low 850-3900 [facility] Comment on above: Performed By: #### 1 016, 496, 905 #### [facility] [place] [address] Associate Professor Of Criminal Justice: Juan Meraz MD Lymphocytes/100 WBC (Bld) 8.5 % Normal [facility] Comment on above: Performed By: #### 1 5, 496, 905 #### [facility] [place] [address] Associate Professor Of Criminal Justice: Juan Meraz MD MCH (RBC) [Entitic mass] 25.1 pg Low 27.0-33.0 [facility] Comment on above: Performed By: #### 1 Mikie5, 496, 905 #### [facility] [place] [address] Associate Professor Of Criminal Justice: Juan Meraz MD MCHC (RBC) [Mass/Vol] 31.2 g/dL Low 32.0-36.[address] [facility] Comment on above: Performed By: #### 1 016, 496, 905 #### [facility] [place] [address] Associate Professor Of Criminal Justice: Juan Meraz MD MCV (RBC) [Entitic vol] 80.4 fL Normal 80.0-100.0 [facility] Comment on above: Performed By: #### 1 164, 496, 905 #### [facility] [place] [address] Associate Professor Of Criminal Justice: Juan Meraz MD Monocytes (Bld) [#/Vol] 0.889 10*3/uL Normal 200-950 [facility] Comment on above: Performed By: #### 1 016, 496, 905 #### [facility] [place] [address] Associate Professor Of Criminal Justice: Juan Meraz MD Monocytes/100 WBC (Bld) 10.1 % Normal [facility] Comment on above: Performed By: #### 1 016, 496, 905 #### [facility] of [address], [address] [place] [address] Associate Professor Of Criminal Justice: Juan Meraz MD Neutrophils (Bld) [#/Vol] 6.934 10*3/uL Normal 2331-0816 [facility] Comment on above: Performed By: #### 1 0165, 496, 905 #### [facility] of [place] [address] Associate Professor Of Criminal Justice: Juan Meraz MD Neutrophils/100 WBC (Bld) 78.8 % Normal [facility] Comment on above: Performed By: #### 1 0165, 496, 905 #### [facility] of [place] [address] Associate Professor Of Criminal Justice: Juan Meraz MD Platelet mean volume (Bld) [Entitic vol] 9.9 fL Normal 7.5-12.5 [facility] Comment on above: Performed By: #### 1 0165, 496, 905 #### [facility] of [place] [address] Associate Professor Of Criminal Justice: Juan Meraz MD Platelets (Bld) [#/Vol] 353 10*3/uL Normal 140-400 [facility] Comment on above: Performed By: #### 1 0165, 496, 905 #### [facility] of [place] [address] Associate Professor Of Criminal Justice: Juan Meraz MD RBC (Bld) [#/Vol] 4.34 10*6/uL Normal 4.20-5.80 [facility] Comment on above: Performed By: #### 1 0165, 496, 905 #### [facility] of [place] [address] Associate Professor Of Criminal Justice: Juan Meraz MD WBC (Bld) [#/Vol] 8.8 10*3/uL Normal 3.8-10.8 [facility] Comment on above: Performed By: #### 1 0165, 496, 905 #### [facility] of [address] [place] [address] Associate Professor Of Criminal Justice: Juan Meraz MD Otolaryngology Office/Clinic Noteon 01-14-2021 [...] oral caps (more content not included)... Normal [facility] Otolaryngology Office/Clinic Noteon 01-12-2021 Otolaryngology Office/Clinic Note [...] Dr. Freed. Previous pathology by physician in [place] about 1 year ago. PMHx of multiple [...] separately bill (more content not included)... Normal [facility] Operative Reporton Operative Report Date: January 11, [...] Chirag Gutierrez DO 01/11/21 20:09 EDT Normal [facility] Operative Report Date: January 11, 2021 Preoperative [...] Chirag Gutierrez DO 01/11/21 09:28 EDT Normal [facility] POC Glucose Randomon 021 Glucose [Mass/Vol] 211 mg/dL High 70-99 [facility] Comment on above: Performed By: #### C [id number] ####[facility] [place] [address] 01-10-2021 Employed in healthcare? Unknown Normal [facility] Comment on above: Performed By: #### C D:[id number] ####[facility] [place] [address] Group care resident? Unknown Normal [facility] Comment on above: Performed By: #### C D:[id number] ####[place] [id number] [place] [address] In ICU? No Normal [facility] Comment on above: Performed By: #### C D:[id number] ####[address] [address] status? Not Applicable Normal [facility] Comment on above: Performed By: #### C D:[id number] ####[address] [address] SARS-CoV-2 (COVID-19) RNA MEREDITH+probe Ql (Unsp spec) Normal Negative [facility] Comment on above: Result Comment: * Ne [...] Negative ADDITIONAL INFORMATION: Testing performed on the [place]00 using the SARS-CoV-2 Antigen test. Results [...] Administration?s Emergency Use Authorization. HCP Fact Sheet: https://www.fda.gov/media/619413/download Patient Fact Sheet: https://www.fda.gov/media/084339/download Performed By: #### C D:[id number] ####[place] [address] SARS-CoV-2 (COVID-19) RNA MEREDITH+probe Ql (Unsp spec) Unknown Normal [facility] Comment on above: Performed By: #### C D:[id number] ####[place] [address] Symptomatic as defined by CDC? Unknown Normal [facility] Comment on above: Performed By: #### C [id number] ####[address] [address] BASIC METABOLIC PANELon 10-0 Calcium [Mass/Vol] 9.6 mg/dL Normal 8.6-10.3 [facility] Comment on above: Performed By: #### 1 0165, 496, 905 #### [facility] [place] [address] Associate Professor Of Criminal Justice: Juan Meraz MD Chloride [Moles/Vol] 100 mmol/L Normal 98-110 [facility] Comment on above: Performed By: #### 1 0165, 496, 905 #### [facility] [place] [address] Associate Professor Of Criminal Justice: Juan Meraz MD CO2 [Moles/Vol] 30 mmol/L Normal 20-32 [facility] Comment on above: Performed By: #### 1 0165, 496, 905 #### [facility] [place] [address] Associate Professor Of Criminal Justice: Juan Meraz MD Creatinine [Mass/Vol] 1.67 mg/dL High 0.70-1.[address] [facility] Comment on above: Result Comment: For patients >49 years of age, the reference limit for Creatinine is approximately 13% higher for people identified as -Monegasque. Performed By: #### 1 0165, 496, 905 #### [facility] [place] [address] Associate Professor Of Criminal Justice: Juan Meraz MD eGFR NON-AFR. MONTSERRATIAN 43 mL/min/1.73m2 Low > OR = 60 [facility] Comment on above: Performed By: #### 1 016, 496, 905 #### [facility] [place] [address] Associate Professor Of Criminal Justice: Juan Meraz MD GFR/1.73 sq M.predicted among blacks MDRD (S/P/Bld) [Vol rate/Area] 50 mL/min/{1.73_m2} Low > OR = 60 [facility] Comment on above: Performed By: #### 1 016, 491, 905 #### [facility] [place] [address] Associate Professor Of Criminal Justice: Juan Meraz MD Glucose [Mass/Vol] 124 mg/dL High 65-99 [facility] Comment on above: Result Comment: Fasting reference interval For someone without known diabetes, a glucose value between 100 and 125 mg/dL is consistent with prediabetes and should be confirmed with a follow-up test. Performed By: #### 1 164, 491, 905 #### [facility] [place] [address] Associate Professor Of Criminal Justice: Juan Meraz MD Potassium [Moles/Vol] 4.7 mmol/L Normal 3.5-5.[address] [facility] Comment on above: Performed By: #### 1 0165, 496, 905 #### [facility] [place] [address] Associate Professor Of Criminal Justice: Juan Meraz MD Sodium [Moles/Vol] 138 mmol/L Normal 135-146 [facility] Comment on above: Performed By: #### 1 0165, 496, 905 #### [facility] [address] [address] Associate Professor Of Criminal Justice: Juan Meraz MD Urea nitrogen [Mass/Vol] 40 mg/dL High 7-25 [facility] Comment on above: Performed By: #### 1 0165, 496, 905 #### [facility] [place] [address], [address] [place] [address] Associate Professor Of Criminal Justice: Juan Meraz MD Urea nitrogen/Creatinine [Mass ratio] 24 mg/mg High 6-22 [facility] Comment on above: Performed By: #### 1 0165, 496, 905 #### [facility] [address], [address] [place] [address] Associate Professor Of Criminal Justice: Juan Meraz MD HEMOGLOBIN A1con 12-31-2020 HEMOGLOBIN [...] 1 0165, 496, 905 #### [facility] [address], [address] [place] [address] Associate Professor Of Criminal Justice: Juan Meraz MD Provider Letteron 12-31-2020 Provider Letter [facility] Ear, Nose & Throat; Facial Plastic Surgery [address] [place] [address] P: [phone] F: [phone] [facility] Re: Anai Rex1955 Date of Visit: 01/05/2021 ATTENTION MEDICAL RECORDS: We are requesting pathology report for biopsy of left ear done within the last 2 years for patient Anai Rdzlucy 59. Thank you, [facility] Provider Letter [facility] Ear, Nose & Throat; Facial Plastic Surgery [address] [place] [address] P: [phone] F: [phone] Chirag Gutierrez DO, [facility] Re: Anai Rex1955 Date of Visit: 01/05/2021 ATTENTION MEDICAL RECORDS: We are requesting pathology report for biopsy of left ear done within the last 2 years for patient Anai Goodman. Thank you, [facility] Provider Letter [facility] Ear, Nose & Throat; Facial Plastic Surgery [address] [place] [address] P: [phone] F: [phone] Chirag Gutierrez DO, [facility] Deon Brito [address] [place] [address] [place] [address] Re: Anai Goodman1955 Date of Visit: 01/05/2021 Patient is a mutual patient, referred to us by your office for lesion of his left ear. We are in need of his previous pathology report for this, he returns to our office for biopsy of this lesion on 01/05/21. We would appreciate if you could please fax over this information prior to 01/05/21. Thank you, [facility] URIC ACIDon 12-31-2020 Urate [Mass/Vol] 10.3 mg/dL High 4.0-8.0 [facility] Comment on above: Order Comment: FASTI NG:YES FASTING: YES Result Comment: Ther apeutic target for gout patients: <6.0 mg/dL Performed By: #### 1 6050, 855, 534 #### [facility] [address], [address] [place] [phone] Associate Professor Of Criminal Justice: Juan Meraz MD Provider Letteron 12-17-2020 Provider Letter Deon Brito [address] [place] [address] Re: Anai Goodman Date of Visit: 12/15/2020 Dear Deon Braxton, I am referring Anai to your office for care. Attached your will find my notes and impressions from our visit. Deon Braxton DO Re:Aani Goodman 1955 Date of Visit: 12/15/2020 Dear Deon Braxton DO: I had the pleasure of evaluating patient, Anai Goodman, in the [facility] clinic on 12/15/2020. Attached you [...] Gutierrez, DO [facility] [place] [address] Let me know if you have any questions or concerns. Sincerely, Tyesha Dunne Providers: The following document(s) were included in the letter: December 15, 2020 13:30:00 EDT - (12/15/2020) Office Visit Note Normal [facility] Otolaryngology Office/Clinic Noteon 12-15-2020 Otolaryngology Office/Clinic Note [...] Dr. Freed. Previous pathology by physician in [place] about 1 year ago. PMHx of multiple [...] mL, 1 Refill(s), 12/18/20 14:00:00 EDT, Pharmacy: [id number] Medical Decision Making Chronic conditions NOT treated [...] 5000 intl (more content not included)... Normal [facility] Otolaryngology Office/Clinic Note Chief Complaint BCC of [...] Dr. Freed. Previous pathology by physician in [place] about 1 year ago. PMHx of multiple [...] meal to (more content not included)... Normal [facility] XR ANKLE RT MIN 3 VIEWSon XR ANKLE RT MIN 3 VIEWS Normal [facility] XR FOOT RT MIN 3 VIEWSon XR FOOT RT MIN 3 VIEWS Normal [facility] XR FOOT RT MIN 3 VIEWSon XR FOOT RT MIN 3 VIEWS Normal [facility] XR FOOT RT MIN 3 VIEWSon XR FOOT RT MIN 3 VIEWS Normal [facility] Consultation Noteon 05-11-19 21 Consultation Note [id number] Normal [facility] Vital Signs Date Time Vital Sign Value Performing Clinician Facility 04-12-2023 11:11-0500 Body height 182.9 cm Terry Leo ESCOBEDO Work Phone: [employer] 04-12-2023 11:11-0500 Body mass index (BMI) [Ratio] 28.89 kg/m2 Terry Leo ESCOBEDO Work Phone: [employer] 04-12-2023 11:11-0500 Body weight 96.62 kg Terry Leo ESCOBEDO Work Phone: [employer] 04-12-2023 11:11-0500 Diastolic blood pressure 74 mm[Hg] Terry ESCOBEDO Work Phone: [employer] 04-12-2023 11:11-0500 Heart rate 74 /min Terry Leo ESCOBEDO Work Phone: [employer] 04-12-2023 11:11-0500 SaO2% (BldA) [Mass fraction] 97 % Terry Lock FANNY Work Phone: [employer] 04-12-2023 11:11-0500 Systolic blood pressure 126 mm[Hg] Terry Leo SECOBEDO Work Phone: [employer] 12-05-2022 13:00-0400 Body height 177.8 cm Ghanshyam Kaye Other [employer] Other 12-05-2022 13:00-0400 Diastolic blood pressure 70 mm[Hg] Ghanshyam Kaye Other [employer] Other 12-05-2022 13:00-0400 SaO2% (BldA) [Mass fraction] 97 % Ghanshyam Kaye Other [employer] Other 12-05-2022 13:00-0400 Systolic blood pressure 110 mm[Hg] Ghanshyam Kaye Other [employer] Other 10-05-2022 10:00-0400 Body height 177.8 cm Dung Kareem Other [employer] Other 10-05-2022 10:00-0400 Body mass index (BMI) [Ratio] 31.85 kg/m2 Dung Serna Other [employer] Other 10-05-2022 10:00-0400 Body weight 100.7 kg Dung Serna Other [employer] Other 10-05-2022 10:00-0400 Diastolic blood pressure 70 mm[Hg] Dung Serna Other [employer] Other 10-05-2022 10:00-0400 Systolic blood pressure 118 mm[Hg] Dunghilario Serna Other [employer] Other 06-02-2022 11:00-0500 Body height 177.8 cm Reddy Brandt Other [employer] Other 06-02-2022 11:00-0500 Body mass index (BMI) [Ratio] 30.13 kg/m2 Reddy Brandt Other [employer] Other 06-02-2022 11:00-0500 Body weight 95.26 kg Reddy Brandt Other [employer] Other 03-15-2022 13:45-0500 Body height 177.8 cm Reddy Brandt Other [employer] Other 03-15-2022 13:45-0500 Body mass index (BMI) [Ratio] 30.85 kg/m2 Reddy Brandt Other [employer] Other 03-15-2022 13:45-0500 Body weight 97.52 kg Reddy Brandt Other [employer] Other 02-07-2022 14:00-0500 Body height 177.8 cm Ghanshyam Kaye Other [employer] Other 02-07-2022 14:00-0500 Body mass index (BMI) [Ratio] 30.85 kg/m2 Ghanshyam Kaye Other [employer] Other 02-07-2022 14:00-0500 Body weight 97.52 kg Ghanshyam Kaye Other [employer] Other 02-07-2022 14:00-0500 Diastolic blood pressure 72 mm[Hg] Ghanshyam Kaye Other [employer] Other 02-07-2022 14:00-0500 SaO2% (BldA) [Mass fraction] 98 % Ghanshyam Shermaney Other [employer] Other 02-07-2022 14:00-0500 Systolic blood pressure 118 mm[Hg] Ghanshyam Kaye Other [employer] Other 11-29-2021 14:35-0400 Diastolic blood pressure 78 mm[Hg] DO Deon Cordovahas Work Phone: [facility] 11-29-2021 14:35-0400 Heart rate 75 /min DO Deon Yuhas Work Phone: [facility] 11-29-2021 14:35-0400 Respiratory rate 16 /min DO Deon Tashahas Work Phone: [facility] 11-29-2021 14:35-0400 SaO2% (BldA) [Mass fraction] 95 % DO Deon Ramoss Work Phone: [facility] 11-29-2021 14:35-0400 Systolic blood pressure 123 mm[Hg] DO Deon Cordovahas Work Phone: [facility] 11-29-2021 13:39-0400 Inhaled oxygen flow rate 8 L/min DO Deon Cordovahas Work Phone: [facility] 11-29-2021 13:24-0400 Body temperature 98.5 [degF] DO Deon Ramoss Work Phone: [facility] 11-29-2021 12:10-0400 Body height 182.88 cm DO Deon Ramoss Work Phone: [facility] 11-29-2021 12:10-0400 Body mass index (BMI) [Ratio] 30.5 kg/m2 DO Deon Ramoss Work Phone: [facility] 11-29-2021 12:10-0400 Body weight 102.05 kg DO Deon Ramoss Work Phone: [facility] 11-03-2021 10:41-0400 Diastolic blood pressure 66 mm[Hg] DO Deon Cordovahas Work Phone: [facility] 11-03-2021 10:41-0400 Heart rate 78 /min DO Deon Cordovahas Work Phone: [facility] 11-03-2021 10:41-0400 Respiratory rate 16 /min DO Deon Cordovahas Work Phone: [facility] 11-03-2021 10:41-0400 SaO2% (BldA) [Mass fraction] 97 % DO Deon Cordovahas Work Phone: [facility] 11-03-2021 10:41-0400 Systolic blood pressure 121 mm[Hg] DO Deon Yuhas Work Phone: [facility] 11-03-2021 09:41-0400 Body temperature 98 [degF] DO Deon Cordovahas Work Phone: [facility] 11-03-2021 09:11-0400 Inhaled oxygen flow rate 8 L/min DO Deon Cordovahas Work Phone: [facility] 11-03-2021 07:37-0400 Body height 182.88 cm DO Deon Cordovahas Work Phone: [facility] 11-03-2021 07:37-0400 Body mass index (BMI) [Ratio] 30.5 kg/m2 DO Deon Cordovahas Work Phone: [facility] 11-03-2021 07:37-0400 Body weight 102.05 kg DO Deon Cordovahas Work Phone: [facility] 11-01-2021 18:03-0400 Diastolic blood pressure 69 mm[Hg] DO Deon Cordovahas Work Phone: [facility] 11-01-2021 18:03-0400 Heart rate 71 /min DO Deon Cordovahas Work Phone: [facility] 11-01-2021 18:03-0400 Respiratory rate 16 /min DO Deon Ramoss Work Phone: [facility] 11-01-2021 18:03-0400 SaO2% (BldA) [Mass fraction] 99 % DO Deon Cordovahas Work Phone: [facility] 11-01-2021 18:03-0400 Systolic blood pressure 124 mm[Hg] DO Deon Tashahas Work Phone: [facility] 11-01-2021 16:21-0400 Body height 182.88 cm DO Deon Cordovahas Work Phone: [facility] 11-01-2021 16:21-0400 Body temperature 98 [degF] DO Deon Tashahas Work Phone: [facility] 11-01-2021 16:21-0400 Body weight 102.05 kg DO Deon Tashahas Work Phone: [facility] 10-31-2021 10:30-0400 Body height 177.8 cm Reddy Brandt Other [facility] [employer] Other 10-27-2021 05:00-0400 Body temperature 98.6 [degF] DO Deon Ramoss Work Phone: [facility] 10-27-2021 05:00-0400 Diastolic blood pressure 72 mm[Hg] DO Deon Cordovahas Work Phone: [facility] 10-27-2021 05:00-0400 Heart rate 70 /min DO Deon Cordovahas Work Phone: [facility] 10-27-2021 05:00-0400 Respiratory rate 16 /min DO Deon Ramoss Work Phone: [facility] 10-27-2021 05:00-0400 SaO2% (BldA) [Mass fraction] 98 % DO Deon Cordovahas Work Phone: [facility] 10-27-2021 05:00-0400 Systolic blood pressure 132 mm[Hg] DO Deon Cordovahas Work Phone: [facility] 10-24-2021 12:00-0400 Body height 182.88 cm DO Deon Cordovahas Work Phone: [facility] 10-23-2021 05:26-0400 Body weight 70.9 kg DO Deon Cordovahas Work Phone: [facility] 10-22-2021 04:14-0400 Inhaled oxygen concentration 21 % DO Deon Tashahas Work Phone: [facility] 10-21-2021 12:00-0400 Body temperature 98.1 [degF] DO Deon Tashahas Work Phone: [facility] 10-21-2021 12:00-0400 Diastolic blood pressure 73 mm[Hg] DO Deon Ramoss Work Phone: [facility] 10-21-2021 12:00-0400 Heart rate 76 /min DO Deon Ramoss Work Phone: [facility] 10-21-2021 12:00-0400 Respiratory rate 18 /min DO Deon Braxton Work Phone: [facility] 10-21-2021 12:00-0400 SaO2% (BldA) [Mass fraction] 95 % DO Deon Ramoss Work Phone: [facility] 10-21-2021 12:00-0400 Systolic blood pressure 128 mm[Hg] DO Deon Braxton Work Phone: [facility] 10-21-2021 06:00-0400 Body weight 99.9 kg DO Deon Braxton Work Phone: [facility] 10-21-2021 02:05-0400 Inhaled oxygen concentration 21 % DO Deon Braxton Work Phone: [facility] 10-19-2021 11:00-0400 Body height 182.88 cm DO Deon Braxton Work Phone: [facility] 10-18-2021 15:37-0400 Inhaled oxygen flow rate 6 L/min DO Deon Braxton Work Phone: [facility] 10-18-2021 13:19-0400 Body mass index (BMI) [Ratio] 29.8 kg/m2 DO Deon Ramoss Work Phone: [facility] 10-12-2021 10:00-0400 Body height 177.8 cm Reddy Brandt Other [employer] Other 10-12-2021 10:00-0400 Body mass index (BMI) [Ratio] 32.28 kg/m2 Reddy Brandt Other [employer] Other 10-12-2021 10:00-0400 Body weight 102.06 kg Reddy Brandt Other [employer] Other 10-06-2021 14:15-0400 Body height 177.8 cm Pako Aguilar Other [employer] Other 10-06-2021 14:15-0400 Body mass index (BMI) [Ratio] 32.28 kg/m2 Pako Aguilar Other [employer] Other 10-06-2021 14:15-0400 Body temperature 97.3 [degF] Pako Aguilar Other [employer] Other 10-06-2021 14:15-0400 Body weight 102.06 kg Pako Aguilar Other [employer] Other 10-06-2021 14:15-0400 Diastolic blood pressure 73 mm[Hg] Pako Aguilar Other [employer] Other 10-06-2021 14:15-0400 Systolic blood pressure 127 mm[Hg] Pako Aguilar Other [employer] Other 09-08-2021 15:30-0400 Body height 177.8 cm Pako Aguilar Other [employer] Other 09-08-2021 15:30-0400 Body temperature 98.1 [degF] Pako Aguilar Other [employer] Other 09-08-2021 15:30-0400 Diastolic blood pressure 73 mm[Hg] Pako Aguilar Other [employer] Other 09-08-2021 15:30-0400 Systolic blood pressure 149 mm[Hg] Pako Aguilar Other [employer] Other Encounters Encounter Date Encounter Type Care Provider Facility Start: 04-13-2023 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 Card[facility] Comment on above: Preop cardiovascular exam (Primary Dx); Coronary artery disease involving ekuk coronary artery of ekuk heart without angina pectoris; Ischemic cardiomyopathy; Chronic systolic congestive heart failure ([facility]); Apical mural thrombus; Essential (primary) hypertension; Cardiac defibrillator in place- [employer]; Mixed hyperlipidemia Start: 04-12-2023 End: 04-12-2023 Patient encounter status Terry Lock ACID FILLER-ROAD TRAIN DRIVER Work Phone: [employer] Work Phone: Start: 04-05-2023 End: 04-06-2023 ambulatory YOVANNY CALHOUN [facility] Start: 04-03-2023 End: 04-03-2023 ambulatory Dung Serna Other [employer] Other Start: 04-03-2023 Telephone encounter Dung Serna [facility] Start: 03-22-2023 End: 03-22-2023 ambulatory YOVANNY CALHOUN Not Available Start: 03-22-2023 End: 03-22-2023 ambulatory YOVANNY Michael CALHOUN Not Available Start: 03-07-2023 End: 03-07-2023 ambulatory YOVANNY CALHOUN Not Available Start: 01-11-2023 End: 01-11-2023 ambulatory Ghanshyam Kaye Other [employer] Other Start: 01-11-2023 Telephone encounter Ghanshyam Kaye [facility] Start: 12-05-2022 End: 12-05-2022 ambulatory Ghanshyam Kaye Other [employer] Other Start: 12-05-2022 Office outpatient vi sit 15 minutes Ghanshyam Kaye [facility] Start: 10-05-2022 Office outpatient ne w 30 minutes Dunghilario Serna [facility] Start: 10-05-2022 End: 10-05-2022 ambulatory Dung Serna [facility] [employer] Other Start: 08-02-2022 End: 08-02-2022 ambulatory Reddy Brandt Other [employer] Other Start: 08-02-2022 Office outpatient vi sit 15 minutes Reddy Brandt [facility] Start: 06-02-2022 End: 06-02-2022 ambulatory Reddy Brandt Other [employer] Other Start: 06-02-2022 Postop follow up vis it related to original px Reddy Brandt [facility] Start: 05-12-2022 End: 05-12-2022 ambulatory Reddy Brandt Other [employer] Other Start: 05-12-2022 Telephone encounter Reddy Brandt [facility] Start: 05-03-2022 End: 05-03-2022 ambulatory Reddy Brandt Facility:[facility] Start: 05-03-2022 End: 05-03-2022 ambulatory DO Deon Braxton Work Phone: [facility] Work Phone: Start: 05-03-2022 End: 05-03-2022 Patient encounter procedure DO Deon Braxton Work Phone: [facility] Start: 04-28-2022 End: 04-28-2022 ambulatory Reddy Brandt Other [employer] Other Start: 04-28-2022 Office outpatient vi sit 15 minutes Reddy Brandt [facility] Start: 04-17-2022 End: 04-17-2022 ambulatory Reddy Brandt Other [employer] Other Start: 04-17-2022 Telephone encounter Reddy Brandt [facility] Start: 04-12-2022 End: 04-12-2022 ambulatory Reddy Brandt Other [employer] Other Start: 04-12-2022 Postop follow up vis it related to original px Reddy Karly [facility] Start: 03-15-2022 End: 03-15-2022 ambulatory Reddy Brandt Other [employer] Other Start: 03-15-2022 Office outpatient vi sit 15 minutes Reddy Brandt [facility] Start: 02-07-2022 End: 02-07-2022 ambulatory Ghanshyam Kaye Other [employer] Other Start: 02-07-2022 Office outpatient vi sit 15 minutes Ghanshyam Kaye [facility] Start: 02-03-2022 End: 02-03-2022 ambulatory Reddy Brandt Other [employer] Other Start: 02-03-2022 Postop follow up vis it related to original px Reddy Karly [facility] Start: 01-24-2022 End: 01-24-2022 ambulatory Reddy Brandt Other [employer] Other Start: 01-24-2022 Telephone encounter Reddy Gil [facility] Start: 01-20-2022 End: 01-20-2022 ambulatory Reddy Meehanley Other [employer] Other Start: 01-20-2022 Postop follow up vis it related to original px Reddy Karly [facility] Start: 01-16-2022 End: 01-16-2022 ambulatory Reddy Meehanley Other [employer] Other Start: 01-16-2022 Telephone encounter Reddy Gil [employer] Start: 01-06-2022 End: 01-06-2022 ambulatory Reddy Meehanley Other [employer] Other Start: 01-06-2022 Postop follow up vis it related to original px Reddy Karly [facility] Start: 12-23-2021 End: 12-23-2021 ambulatory Reddy Brandt Other [employer] Other Start: 12-23-2021 Postop follow up vis it related to original px Reddy Karly [facility] Start: 12-20-2021 End: 12-21-2021 ambulatory Reddy Perez Karly Facility:[facility] Start: 12-20-2021 End: 12-20-2021 Discharged Recurring DO Deon Braxton Work Phone: [facility]Infusion Therapy - O/P Start: 12-14-2021 End: 12-14-2021 ambulatory Reddy Brandt Other [employer] Other Start: 12-14-2021 Postop follow up vis it related to original px Reddy Karly [facility] Start: 12-12-2021 End: 12-12-2021 ambulatory Reddy Meehanley Other [employer] Other Start: 12-12-2021 Telephone encounter Reddy Karly FP [facility] Start: 12-09-2021 End: 12-09-2021 ambulatory Reddy Brandt Other [employer] Other Start: 12-09-2021 Postop follow up vis it related to original px Reddy Brandt [facility] Start: 11-29-2021 End: 11-29-2021 Evaluation and management of inpatient DO Deon Braxton Work Phone: [facility]-[address] [place] [address] Start: 11-29-2021 End: 11-29-2021 Admission to same day surgery center DO [facility]on [facility] [place] Start: 11-28-2021 End: 11-28-2021 ambulatory Reddy Brandt Other [facility] [employer] Other Start: 11-28-2021 Postop follow up vis it related to original px Reddybryan Brandt [facility] Start: 11-21-2021 End: 11-21-2021 ambulatory Reddy Brandt Other [employer] Other Start: 11-21-2021 Telephone encounter Reddy MOE [facility] Start: 11-03-2021 End: 11-03-2021 ambulatory Deon Braxton Facility:[facility] Start: 11-03-2021 End: 11-03-2021 Admission to same day surgery center DO Deon Braxton [facility] [place] Start: 11-02-2021 End: 11-02-2021 ambulatory Reddy Perez Karly [facility] [employer] Other Start: 11-02-2021 Postop follow up vis it related to original px Reddy Karly [facility] Start: 11-02-2021 End: 11-02-2021 Patient encounter procedure DO Deon Braxton Work Phone: [facility] Start: 11-01-2021 End: 11-01-2021 Emergency department patient visit Deon Braxton Facility:[facility] Start: 11-01-2021 End: 11-01-2021 Emergency department patient visit DO Deon Ramoss Work Phone: [facility] Start: 11-01-2021 End: 11-01-2021 ambulatory Reddy Brandt Other [employer] Other Start: 11-01-2021 Telephone encounter Reddy MOE G [facility] Start: 10-31-2021 End: 10-31-2021 ambulatory Reddy Brandt Other [employer] Other Start: 10-31-2021 Postop follow up vis it related to original px Reddy Brandt [facility] Start: 10-21-2021 End: 10-27-2021 Evaluation and management of inpatient Ghanshyam Kaye Facility:[facility] Start: 10-21-2021 End: 10-27-2021 Evaluation and management of inpatient DO Deon Braxton Work Phone: [facility] Start: 10-18-2021 End: 10-21-2021 Evaluation and management of inpatient Reddy Brandt Facility:[facility] Start: 10-18-2021 End: 10-21-2021 Evaluation and management of inpatient DO Deon Braxton Work Phone: [facility] Start: 10-14-2021 End: 10-14-2021 Patient encounter procedure DO Deon Ramoss Work Phone: [facility] Start: 10-12-2021 End: 10-12-2021 ambulatory Reddy Brandt Other [employer] Other Start: 10-12-2021 Office outpatient vi sit 25 minutes Reddy Brandt [facility] Start: 10-10-2021 End: 10-10-2021 Patient encounter procedure DO Deon Braxton Work Phone: [facility]MRI [place] Start: 10-06-2021 End: 10-06-2021 Patient encounter procedure DO Deon Braxton Work Phone: [facility] [place] Start: 10-06-2021 End: 10-06-2021 ambulatory Reddy Brandt Other [employer] Other Start: 10-06-2021 Office outpatient vi sit 25 minutes Pako Aguilar [facility] Start: 10-06-2021 Telephone encounter Reddy [facility] Start: 09-29-2021 End: 09-29-2021 Patient encounter procedure DO Deon Braxton Work Phone: [facility] Start: 09-26-2021 End: 09-26-2021 ambulatory Reddy Brandt Other [employer] Other Start: 09-26-2021 Telephone encounter Reddy [facility] Start: 09-21-2021 End: 09-21-2021 Patient encounter procedure DO Deon Braxton Work Phone: [facility] Start: 09-21-2021 ambulatory SALINA LEE Faci lity:[facility] Start: 09-09-2021 End: 09-10-[address] DEON BRAXTON Facility:[facility] Start: 09-09-2021 End: 09-10-2021 ambulatory SALINA LEE Facility:[facility] Start: 09-08-2021 End: 09-08-2021 ambulatory Pako Aguilar Other [employer] Other Start: 09-08-2021 Office outpatient vi sit [...] LEE Facility:[facility] Start: 02-28-2021 ambulatory DEON Ho lity:[facility] Start: 02-23-2021 End: 02-24-2021 ambulatory SALINA LEE Facility:[facility] Start: 02-22-2021 ambulatory DEON Ho lity:[facility] Start: 02-17-2021 End: 02-18-2021 ambulatory SALINA LEE Facility:[facility] Start: 02-09-2021 Encounter for preprocedural laboratory examination SALINA LEE [facility] Start: 02-08-2021 End: 02-12-2021 Evaluation and management [...] Start: 01-11-2021 End: 01-11-2021 ambulatory DEON BRAXTON Facility:[facility] Start: 01-10-2021 End: 01-11-2021 ambulatory DEON BRAXTON Facility:[facility] Start: 12-08-2020 End: 12-09-[address] DEON [...] w/le ast 12 lds w/i&r Terry Lock ACID FILLER-ROAD TRAIN DRIVER Work Phone: Start: 03-22-2023 Adult depression scr eening assessment Terry Lock ACID FILLER-ROAD TRAIN DRIVER Work Phone: Start: 12-29-2022 Diabetic retinal eye exam Terry Lock ACID FILLER-ROAD TRAIN DRIVER Work Phone: Start: 10-26-2022 Microalbumin [Mass/v olume] in Urine by Test strip [facility] Work [facility]: Start: 11-29-2021 Incision and drainag e of lower extremity DO Deon Braxton Work Phone: Start: 11-03-2021 Amputation of right lower limb DO Deon Braxton Work Phone: Start: 10-18-2021 Antibody screen Dung jones Comment on above: Result Comment: PERF ORMED BY: [place] [id number] [place] [address] PATHOLOGIST BUTCHER SUPERVISOR SESAR YOST M.D. Start: 10-18-2021 Amputation of [...] from Right Ankle Joint, Open Approach [facility] Aerobic microbial culture DO Deon Braxton Work [...] Td Vaccines (2 - Td or Tdap) [facility] Start: 04-12-2024 Adult BMI Screening Adult BMI Screening [facility] Start: 04-12-2024 Tobacco Screening Tobacco Screening [facility] Start: 03-22-2024 Depression Screening Depression Screening [facility] Start: 03-22-2024 Fall Risk Screening Fall Risk Screening [facility] Start: 12-30-2023 Glaucoma screening Diabetic Ophthalmology Exam [facility] Start: 11-29-2023 End: 11-29-2023 Patient encounter procedure 11/29/2023 9:00 AM EDT Office Visit [facility] - Family Medicine [address] [place] [id number] [facility] - [facility] Start: 11-24-2023 Medicare Annual Wellness Visit Medicare Annual Wellness Visit [facility] Start: 10-27-2023 Diabetic foot examination Diabetic Foot Exam [facility] Start: 10-27-2023 Urine screening for protein Urine Microalbumin [facility] Start: 11-29-2021 [facility] Start: 11-29-2021 [facility] Start: 11-29-2021 Incision and drainage of lower extremity OR I&D Exploration Upper/Lower Extremity (Right) [facility] Start: 11-29-2021 End: 11-29-2021 Admission to same day surgery center Below knee amputation [facility] [place] Start: 11-03-2021 [facility] Start: 11-03-2021 [facility] Start: 11-03-2021 Amputation of right lower limb OR Leg Amputation Above/Below (Right) [facility] Start: 11-03-2021 End: 11-03-2021 Admission to same day surgery center Departed Surgical Day Care [facility] [place] Start: 11-02-2021 End: 11-02-2021 Patient encounter procedure Departed Clinical [facility]-Pre-Surgical Testing Start: 11-01-2021 End: 11-01-2021 Emergency department patient visit Departed Emergency [facility]-Emergency Room Start: 10-27-2021 [facility] Work Phone: Start: 10-21-2021 Hospital admission [facility] Work Phone: Start: 10-21-2021 Referral to clinical field operations supervisor [facility] Work Phone: Start: 10-21-2021 [facility] Work Phone: Start: 10-18-2021 Referral to clinical field operations supervisor [facility] Work Phone: Start: 10-18-2021 Detachment at Right Lower Leg, Mid, Open Approach Detachment at Right Lower Leg, Mid, Open Approach [facility] Start: 10-17-2021 [facility] Work Phone: Start: 10-14-1975 Adult BMI Follow Up Plan Adult BMI Follow Up Plan [facility] Patient Education [facility] Work Phone: Patient referral [facility] Work Phone: SARS-CoV-2 (COVID-19 ) N gene [Presence] in Respiratory specimen by MEREDITH with probe detection [facility] Work Phone: Immunizations Immunization Date Immunization Notes Care Provider Fa [facility] 03-12-2023 Covid-19,mrna, Lnp-s , Pf, 50mcg/0.5ml 12+ Terry Lock ACID FILLER-ROAD TRAIN DRIVER Work Phone: [facility] 03-12-2023 Influenza Vaccine, Quadrivalent, Adjuvanted Terry Lock APRN-ROAD TRAIN DRIVER Work Phone: [facility] 03-12-2023 RSV, mAb, nirsevimab-alip, 1 mL, to 24 months Terry Lock APRN-ROAD TRAIN DRIVER Work Phone: [facility] 03-12-2023 RSV, recombinant, protein subunit RSVpreF, adjuvant reconstituted, 0.5 mL, PF Terry Lock ACID FILLER-ROAD TRAIN DRIVER Work Phone: [facility] 06-14-2022 zoster vaccine recombinant Terry Lock ACID FILLER-ROAD TRAIN DRIVER Work Phone: [facility] 04-15-2022 Covid-19, Mrna, Lnp- s, Bivalent, Pf, 50mcg/0.5ml or 25mcg/0.25ml Terry Lock ACID FILLER-ROAD TRAIN DRIVER Work Phone: [facility] 04-15-2022 zoster vaccine recombinant Terry Lock ACID FILLER-ROAD TRAIN DRIVER Work Phone: [facility] 04-11-2022 Influenza, High-dose , Quadrivalent Terry Lock ACID FILLER-ROAD TRAIN DRIVER Work Phone: [facility] [employer] 03-01-2021 COVID-19 mRNA-1273 (Moderna) DO [facility] Work Phone: [facility] 03-01-2021 Seasonal, quadrivale nt, recombinant, injectable influenza vaccine, preservative free Terry Lock ACID FILLER-ROAD TRAIN DRIVER Work Phone: [facility] 06-25-2020 COVID-19 mRNA-1273 (Moderna) DO [facility] Work Phone: [facility] 05-28-2020 COVID-19, mRNA, LNP- S, PF, 100mcg/0.5mL Dose Terry Lock ACID FILLER-ROAD TRAIN DRIVER Work Phone: [facility] 05-25-2020 COVID-19, mRNA, LNP- S, PF, 100mcg/0.5mL Dose Terry Lock ACID FILLER-ROAD TRAIN DRIVER Work Phone: [facility] 01-14-2020 influenza, seasonal, injectable Terry Lock ACID FILLER-ROAD TRAIN DRIVER Work Phone: [facility] 12-30-2019 influenza, injectabl e, quadrivalent, preservative free Terry Lock ACID FILLER-ROAD TRAIN DRIVER Work Phone: [facility] 04-07-2019 Influenza, injectabl e, [place] Canine Kidney, preservative free, quadrivalent Terry Lock ACID FILLER-ROAD TRAIN DRIVER Work Phone: [facility] 12-31-2018 pneumococcal conjuga te vaccine, 13 valent Terry Lock ACID FILLER-ROAD TRAIN DRIVER Work Phone: [facility] 01-23-2018 influenza, injectabl e, quadrivalent, contains preservative Terry Lock APRN-ROAD TRAIN DRIVER Work Phone: [facility] 01-23-2018 influenza, injectabl e, quadrivalent, preservative free Terry Lock ACID FILLER-ROAD TRAIN DRIVER Work Phone: [facility] 02-05-2017 influenza, injectabl e, quadrivalent, preservative free Terry Lock ACID FILLER-ROAD TRAIN DRIVER Work Phone: [facility] 02-05-2017 pneumococcal conjuga te vaccine, 13 valent Terry Lock APRN-ROAD TRAIN DRIVER Work Phone: [facility] 01-14-2017 influenza, injectabl e, quadrivalent, contains preservative Terry Lock APRN-ROAD TRAIN DRIVER Work Phone: [facility] 01-14-2016 tetanus toxoid, redu joseph diphtheria toxoid, and acellular pertussis vaccine, adsorbed Terry Lock ACID FILLER-ROAD TRAIN DRIVER Work Phone: [facility] 01-02-2016 influenza virus vacc ine, unspecified formulation Terry Lock APRN-ROAD TRAIN DRIVER Work Phone: [facility] 08-13-2015 zoster vaccine, live Terry Lock APRN-ROAD TRAIN DRIVER Work Phone: [facility] 12-22-2014 influenza, seasonal, injectable, preservative free Terry Lock ACID FILLER-ROAD TRAIN DRIVER Work Phone: [employer] 01-26-2014 pneumococcal conjuga te vaccine, 13 valent Terry Lock ACID FILLER-ROAD TRAIN DRIVER [facility] 01-12-2014 influenza, seasonal, injectable Terry Lock ACID FILLER-ROAD TRAIN DRIVER Work Phone[facility] 01-12-2014 Seasonal trivalent influenza vaccine, adjuvanted, preservative free Terry Lock ACID FILLER-ROAD TRAIN DRIVER Work Phone[facility] 09-17-2012 pneumococcal polysaccharide vaccine, 23 valent Terry Lock ACID FILLER-ROAD TRAIN DRIVER Work Phone: [employer] 09-17-2012 pneumococcal vaccine , unspecified formulation Terry Lock ACID FILLER-ROAD TRAIN DRIVER Work Phone: [facility] [employer] [facility] Payers Date Payer Category Payer Medicare [id number] 2023 Medicare ANTHEM MEDICARE ANTHEM MEDICARE ADVANTAGE [id number] 2023-Present [phone] [address] [place] [address] [id number]. [id number] 2022 Medicare [id number] 2021 Medicare [id number] 2021 Self-pay [id number] 2021 Unknown 1959 Medicare [id number] 2.16.840.1.951004.19 1957 Unknown [id number] 2.16.840.1.461570.3.579.2.196 1957 Unknown [id number] 2.16.840.1.145246.3.579.2.196 1957 Unknown [id number] 2.16.840.1.310295.3.579.2.196 1957 Unknown [id number] 2.16.840.1.976732.3.579.2.196 1957 Unknown [id number] 2.16.840.1.997557.3.579.2.593 1957 Unknown [id number] 2.16.840.1.685081.3.579.2.593 1957 Unknown [id number] 2.16.840.1.718660.3.579.2.593 1957 Unknown [id number] 2.16.840.1.234344.3.579.2.593 1957 Unknown [id number] 2.16.840.1.229294.3.579.2.593 1957 Unknown [id number] 2.16.840.1.487362.3.579.2.593 1957 Unknown [id number] 2.16.840.1.775079.3.579.2.593 1957 Unknown [id number] 2.16.840.1.460474.3.579.2.593 1957 Unknown [id number] 2.16.840.1.091549.3.579.2.593 1957 Unknown [id number] 2.16.840.1.019612.3.579.2.593 1957 Unknown [id number] 2.16.840.1.826059.3.579.2.593 1957 Unknown [id number] 2.16.840.1.700741.3.579.2.593 1957 Unknown [id number] 2.16.840.1.366111.3.579.2.593 1957 Unknown [id number] 2.16.840.1.242509.3.579.2.593 1957 Unknown [id number] 2.16.840.1.169899.3.579.2.593 1957 Unknown [id number] 2.16.840.1.693001.3.579.2.593 1957 Unknown [id number] 2.16.840.1.932145.3.579.2.593 1957 Unknown [id number] 2.16.840.1.362669.3.579.2.59 1957 Unknown [id number] 2.16.840.1.836256.3.579.2.59 1957 Unknown [id number] 2.16.840.1.915589.3.579.2.59 1957 Unknown [id number] 2.16.840.1.974503.3.579.2. 1957 Unknown [id number] 2.16.840.1.700671.3.579.2.593 1957 Unknown [id number] 2.16.840.1.305127.3.579.2.59 1957 Unknown [id number] 2.16.840.1.247266.3.579.2.593 1957 Unknown [id number] 2.16.840.1.741874.3.579.2.59 1957 Unknown [id number] 2.16.840.1.552054.3.579.2.593 1957 Unknown [id number] 2.16.840.1.686511.3.579.2. 1957 Unknown [id number] 2.16.840.1.741499.3.579.2.59 1957 Unknown [id number] 2.16.840.1.666700.3.579.2.59 1957 Unknown [id number] 2.16.840.1.345463.3.579.2.593 1957 Unknown [id number] 2.16.840.1.618938.3.579.2.59 1957 Unknown [id number] 2.16.840.1.128460.3.579.2.593 1957 Unknown [id number] 2.16.840.1.771368.3.579.2.59 1957 Unknown [id number] 2.16.840.1.670296.3.579.2.59 1957 Unknown [id number] 2.16.840.1.549771.3.579.2. 1957 Unknown [id number] 2.16.840.1.299320.3.579.2. 1957 Unknown [id number] 2.16.840.1.451871.3.579.2. 1957 Unknown [id number] 2.16.840.1.931148.3.579.2. 1957 Unknown [id number] 2.16.840.1.662774.3.579.2. 1957 Unknown [id number] 2.16.840.1.085920.3.579.2. 1957 Unknown [id number] 2.16.840.1.115233.3.579.2. 1957 Unknown [id number] 2.16.840.1.391665.3.579.2.59 1957 Unknown [id number] 2.16.840.1.452046.3.579.2. 1957 Unknown [id number] 2.16.840.1.750247.3.579.2.59 1957 Unknown [id number] 2.16.840.1.521944.3.579.2.593 1957 Unknown [id number] 2.16.840.1.532595.3.579.2.593 1957 Unknown [id number] 2.16.840.1.352986.3.579.2.593 1957 Unknown [id number] 2.16.840.1.343941.3.579.2.593 1957 Unknown [id number] 2.16.840.1.832189.3.579.2.593 1957 Unknown [id number] 2.16.840.1.335814.3.579.2.593 1957 Unknown [id number] 2.16.840.1.164165.3.579.2.593 1957 Unknown [id number] 2.16.840.1.123388.3.579.2.593 1957 Unknown [id number] 2.16.840.1.171013.3.579.2.593 1957 Unknown [id number] 2.16.840.1.873433.3.579.2.593 1957 Unknown [id number] 2.16.840.1.574959.3.579.2.593 1957 Unknown [id number] 2.16.840.1.951866.3.579.2.593 1957 Unknown [id number] 2.16.840.1.081704.3.579.2.593 1957 Unknown [id number] 2.16.840.1.149808.3.579.2.593 1957 Unknown [id number] 2.16.840.1.868481.3.579.2.1259 1957 Unknown [id number] 2.16.840.1.877272.3.579.2.1259 1957 Unknown [id number] 2.16.840.1.608315.3.579.2.1259 1957 Unknown [id number] 2.16.840.1.213244.3.579.2.1286 1957 Unknown [id number] 2.16.840.1.358431.3.579.2.1286 Unknown [facility] [id number] Unknown [facility] [id number] Unknown [id number] 2.16.840.1.696634.3.579.2.531 Unknown [id number] 2.16.840.1.401308.3.579.2.531 Unknown [id number] 2.16.840.1.288122.3.579.2.531 Unknown [id number] 2.16.840.1.909118.3.579.2.531 Unknown [id number] 2.16.840.1.798119.3.579.2.531 Unknown [id number] 2.16.840.1.117693.3.579.2.531 Unknown [id number] 2.16.840.1.412006.3.579.2.531 Unknown [id number] 2.16.840.1.528875.3.579.2.531 Unknown [id number] 2.16.840.1.432935.3.579.2.531 Social History Date Type Detail Facility Unknown if ever smoked [facility] Other Start: 04-11-2022 End: 04-12-2023 Sex Assigned At [facility] Start: 10-19-2021 End: 01-18-2022 Tobacco smoking status NHIS Never smoked tobacco (finding) [facility] Start: 1955 Sex Assigned At Male [facility] Start: 01-18-2022 Tobacco use and exposure Smokeless tobacco non-user [facility] Start: 04-12-2023 Alcohol intake Current drinker of alcohol (finding) [facility] Start: 04-11-2022 End: 04-12-2023 History of Social function [facility] Do you belong to any clubs or organizations such as mu-ism groups, unions, fraternal or athletic groups, or school groups? No [facility] Are you now , , , , never or living with a partner? [facility] How often to you hav e a drink containing alcohol? 2-4 times a month [facility] How many standard dr inks containing alcohol do you have on a typical day? 1 or 2 [facility] How often do you hav e 6 or more drinks on 1 occasion? Never [facility] How hard is it for y ou to pay for the very basics like food, housing, medical care, and heating Somewhat hard [facility] Adolescent depressio n screening assessment 0 [facility] Do you feel stress - tense, restless, nervous, or anxious, or unable to sleep at night because your mind is troubled all the time - these days [OSQ] Not at all [facility] Start: 04-11-[address] [facility] Start: 09-10-2019 Alcohol Comment social [facility] Start: 1955 Sex Assigned At Not on file [facility] Medical Equipment Procedure Code Equipment Code Equipment Origin al Text Equipment Identifier Dates Gft Hmn Tiss 250 mg Amniofill - [id number] - [id number] Start: 12-27-2018 Gft Sft Tis Matr istem - [id number] - [id number] Start: 01-27-2019 Tiss Grafix Prim e 3x4cm - [id number] - [id number] Start: 09-15-2019 Evera Mri Xt Vr Defibrillator [id number] Start: 07-13-2015 Sprint Quattro S ecure Mri [id number] Start: 07-13-2015 Tissue Epifix 2x 4 Cm - [id number] - [id number] Start: 12-27-2018 USE DIRECTED FOUR TIMES DAILY [id number] Start: 08-07-2022 Goals Date Patient Goal Desired [...] goal: Pt plans to [facility] with [facility]. Functional Status Date Assessment Result Facility 10-27-2021 Functional status Patient is Pro gressing Toward [facility] Work Phone: 10-21-2021 Functional status Patient is Pro gressing Toward [facility] Work Phone: 10-18-2021 Functional status Patient at Baseline [facility] Work Phone: Mental Status Date Assessment Result Facility 10-27-2021 Cognitive function Cognitive Sta tus Patient at [facility] Work Phone: 10-21-2021 Cognitive function Cognitive Sta tus Patient is Progressing Toward [facility] Work Phone: 10-18-2021 Cognitive function Cognitive Sta tus Patient at [facility] Work Phone: Clinical Notes 01-05-2021 to 04-12-2023 Terry Lock, KRUNAL-ROAD TRAIN DRIVER - 04/12/2023 11:30 AM Sue High LPN [...] arthropathy, with long-term current use of insulin ([facility]) Chronic systolic congestive heart failure ([facility]) Coronary artery disease involving ekuk coronary artery of ekuk heart without angina pectoris Hearing loss Personal history of colonic polyps Colon polyps Diverticulosis large intestine w/o perforation or abscess w/o bleeding Chronic obstructive pulmonary disease ([facility]) 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 Gastroesophageal reflux disease with esophagitis without hemorrhage Stage 3b chronic kidney disease ([facility]) Subepithelial esophageal mass Sarcoidosis Diabetic retinopathy ([facility]) Obstructive sleep apnea syndrome Diabetic neuropathy ([facility]) Bilateral sensorineural hearing loss Unilateral complete AKA, right ([facility]) Allergies Allergen Reactions Doxycycline Other reaction(s): Chest Pain Levofloxacin Other reaction(s): Chest Pain Chlorpheniramine Dextromethorphan Hbr Itching Muehrozup-Ln-Jdzvqlpsfsjyf Guaifenesin Other reaction(s): Itching of skin Hydrocodone [...] morning. 90 tablet 1 flash glucose sensor (Intuitive AutomataSTYLE LELO 2 SENSOR) kit CHANGE EVERY 2 [...] involving left anterior descending (LAD) coronary artery ([facility]) 05/28/2015 Hyperlipidemia Interstitial lung disease ([facility]) Left ventricular failure ([facility]) MRSA (methicillin resistant staph aureus) culture positive Peptic ulceration Presence of automatic (implantable) cardiac defibrillator ST elevation (STEMI) myocardial infarction ([facility]) 2015 x 5 stents Stage 3b chronic kidney disease ([facility]) 04/22/2020 Unilateral complete AKA, right ([facility]) 03/31/2022 No data recorded No data recorded No data recorded Past Surgical History: Procedure Laterality Date ANKLE LIGAMENT RECONSTRUCTION Right 2020 APPLICATION AMNIOFILL Right 12/27/2018 Performed by Arlen Olguin DPM at [facility] APPLICATION WOUND VAC ( NOT done) Right 01/27/2019 Performed by Terry Hector DPM at [facility] CARDIAC DEFIBRILLATOR PLACEMENT 07/13/2015 [employer] COLONOSCOPY N/A 04/07/2020 Performed by Deon Braxton DO at [facility] DEBRIDEMENT FOOT EXCISION RT FOOT ULCER, APPLICATION BIOLOGIC SKIN GRAFT RT FOOT, APPLICATION OF WOUND VAC RT FOOT Right 01/27/2019 Performed by Terry Hector DPM at [facility] DEBRIDEMENT FOOT WITH APPLICATION OF GRAFIX Right 09/15/2019 Performed by Terry Hector DPM at [facility] ESOPHAGOGASTRODUODENOSCOPY N/A 05/19/2020 Performed by Deon Braxton DO at [facility] EXCISION 5TH METATARSAL Right 12/30/2018 Performed by Terry Hector DPM at [facility] FINGER SURGERY FOOT SURGERY 07/2020 [facility] Bilateral LAPAROSCOPIC CHOLECYSTECTOMY N/A 06/21/2020 Performed by Deon Justice MD at [facility] LENGTHENING TENDON RIGHT, PLANTAR FASCIOTOMY Right 09/15/2019 Performed by Terry Hector DPM at [facility] SKIN GRAFT LOWER EXTREMITY (APPLICATION OF BIOLOGIC SKIN GRAFT RT FOOT Right 01/27/2019 Performed by Terry Hector DPM at [facility] Family History Problem Relation Age of Onset [...] min Stress: No Stress Concern Present (04/11/2022) [place] Citizen [place] of Occupational Health - Occupational Stress Questionnaire Feeling of Stress : Not at all Social Connections: Moderately Integrated (04/11/2022) Social Connection and Isolation Panel [NHANES] Frequency of Communication with Friends and Family: Twice a week Frequency of Social Gatherings with Friends and Family: Twice a week Attends Gnosticism Services: 1 to 4 times per year [...] Verbalized understanding 2. Coronary artery disease involving ekuk coronary artery of ekuk heart without angina pectoris -aspirin, statin, beta-doreen 3. Ischemic cardiomyopathy -carvedilol, losartan, Aldactone 4. Chronic systolic congestive heart failure (CMS-HCC) -compensated 5. Apical mural thrombus -small, fixed on echocardiogram 04/2020 -has been maintained on Eliquis therapy 5 mg b.i.d. 6. Essential (primary) hypertension -well controlled 7. Cardiac defibrillator in place- [employer] -3.4 years of battery life as of [...] for Next scheduled follow up. PCP: Deon Braxotn Jr, DO Referring Physician: Deon Braxton DO [address] [place] [address] FANNY Owens 04/12/23 1145 Office note faxed to Dr Lee for clearance documented in this encounter [employer] [employer] 12-05-2022 Evaluation note Encounter Date Diagnosis Assessment Notes Dec, Charcot foot due to diabetes mellitus (ICD-10 - E11.610) Dec, Status post transmetatarsal amputation of left foot (ICD-10 - Z89.432) as above, RX written. Dec, Hx of right BKA (ICD-10 - Z89.511) [facility] Other 07-06-2023 Evaluation note* Encounter Date Diagnosis [...] months. Sep, Peripheral polyneuropathy (ICD-10 - G62.9) [facility] Other 05-03-2023 Evaluation note* Encounter Date Diagnosis [...] elsewhere classified, subsequent encounter (ICD-10 - T81.31XD) [facility] Other 03-03-2023 Evaluation note* Encounter Date Diagnosis [...] this time. Patient is following up at [facility] for changes to prosthetic. I did recommend use of a cane to help offload some weight which may reduce his pain. Patient voiced understanding and states no further questions at this time. May, Other specified postprocedural states (ICD-10 - Z98.890) May, Postoperative wound dehiscence, initial encounter (ICD-10 - T81.31XA) [facility] Other 01-27-2023 Evaluation note* Encounter Date Diagnosis [...] wound dehiscence, initial encounter (ICD-10 - T81.31XA) [facility] Other 01-11-2023 Evaluation note* Encounter Date Diagnosis [...] wound dehiscence, initial encounter (ICD-10 - T81.31XA) [facility] Other 12-14-2022 Evaluation note* Encounter Date Diagnosis [...] wound dehiscence, initial encounter (ICD-10 - T81.31XA) [facility] Other 11-08-2022 Evaluation note* Encounter Date Diagnosis Assessment Notes Treatment Notes Treatment Clinical Notes Jan, Right below-knee amputee (ICD-10 - Z89.511) Proceed with K3 level, transtibial prosthesis, preparatory. Diligent monitoring of residual limb. Stop wearing prosthesis immediately if wound should worsen, develop erythema, increased pain, etc. Wearing schedule. [facility] Other 11-04-2022 Evaluation note* Encounter Date Diagnosis [...] wound dehiscence, initial encounter (ICD-10 - T81.31XA) [facility] Other 10-21-2022 Evaluation note* Encounter Date Diagnosis [...] wound dehiscence, initial encounter (ICD-10 - T81.31XA) [facility] Other 10-07-2022 Evaluation note* Encounter Date Diagnosis [...] wound dehiscence, initial encounter (ICD-10 - T81.31XA) [facility] Other 09-23-2022 Evaluation note* Encounter Date Diagnosis [...] wound dehiscence, initial encounter (ICD-10 - T81.31XA) [facility] Other 09-14-2022 Evaluation note* Encounter Date Diagnosis [...] wound dehiscence, initial encounter (ICD-10 - T81.31XA) [facility] Other 09-09-2022 Evaluation note* Encounter Date Diagnosis [...] infectious disease. Faxed wound center information to [phone] and left a voicemail. Dec, Other specified postprocedural states (ICD-10 - Z98.890) Dec, Postoperative wound dehiscence, initial encounter (ICD-10 - T81.31XA) [facility] Other 08-30-2022 History and physical note Author Reddy Brandt [facility] November 29, 2021 11:49am Note Date/Time November 29, 2021 11 :32am [facility] [address] [place] [address] Orthopedic Surgery H&P Signed Patient: Anai Goodman MR#: [id number] : 1955 Acct:[id number] Age/Sex: 66 / M Adm Date: 2 Loc: NE Room: Type: [facility] Attending Dr: Reddy Brandt DO Copies to: DO Reddy Rushing DO~ Date of Service: 11/29/2021 HPI History of Present Illness History of Present Illness: Anai is a 66-year-old male well-known to me from a right BKA for osteomyelitis who had wound dehiscence and revision BKA approximately month ago who presents to the ED with repeat wound dehiscence after a repeat fall. [facility] Vacc[facility] for [facility]-19?: Yes Medical History [...] poor healing. I have advised against the joint terminal attack controller use of narcotic pain medication. I have advised to follow all post-operative instructions in order to obtain the best outcome. Informed consent has been verbally affirmed and signed as indicated. Documented By: Reddy Brandt DO 11/29/21 1129 Signed By: <Electronically signed by eRddy Brandt DO> 11/29/21 1149 [facility] Work Phone: 1(688) 934-236908-29-2022 Evaluation note* Encounter Date Diagnosis Assessment Notes [...] remova l of sutures (ICD-10 - Z48.02) [facility] Other 08-03-2022 Evaluation note* Encounter Date Diagnosis [...] was in understanding and wishes to proceed. [facility] Other 08-01-2022 Evaluation note* Encounter Date Diagnosis [...] move forward with treatment at this time. [facility] Other 07-27-2022 Progress note Author Ghanshyam Kaye [facility] October 25, 2021 11:37pm Note Date/Time October 25, 2021 11:3 7pm [facility] [address] [place] [address] Physiatry(Rehab) Progress Note Signed Patient: Anai Goodman MR#: [id number] : 1955 Acct:[id number] Age/Sex: 66 / M Adm Date: 2 Loc: 5T Room: 9W8732-1 Type : ADM IN Attending Dr: Ghanshyam Kaye MD Copies to: ~ Date of Service: 10/25/2021 Subjective Subjective Narrative: Mr. Goodman is a 66 year old male who is admitted to [facility] inpatient rehab for strengthening s/p planned right BKA. Patient's past medical history significant for DM type II, CAD, HI, s/p pacemaker/defibrillator insertion, CKD, osteomyelitis of the [...] % (Auto) 69.1 Lymph % (Auto) 9.4 Borden % (Auto) 14.5 Eos % (Auto) 6.7 Baso % (Auto) 0.3 Neut # (Auto) 4.0 Lymph # (Auto) 0.5 L Borden # (Auto) 0.8 Eos # (Auto) 0.4 [...] MPV Neut % (Auto) Lymph % (Auto) Borden % (Auto) Eos % (Auto) Baso % (Auto) Neut # (Auto) Lymph # (Auto) Borden # (Auto) Eos # (Auto) Baso # [...] mg 10/21/21 17:51 Bisacodyl 10 Mg Supp.Rect ND 10/21/22 17:50 DAILY PRN Constipation Bumetanide 1 [...] 17:51 Docusate Enema 283 Mg/5 Ml Enema ND 10/21/22 17:50 DAILY PRN Constipation Insulin Aspart 0 units 10/21/21 17:00 10/25/21 20:27 Insulin Aspart 300 Units/3 Ml Insuln.Pen SUBCUT 10/21/22 16:59 7 units TID.WM.[facility] Administration Protocol Insulin Aspart 0 units 10/21/21 17:00 10/25/21 20:30 Insulin Aspart 300 Units/3 Ml Insuln.Pen SUBCUT 10/21/22 16:59 Not Given TID.WITH.MEALS.[facility] Protocol Insulin Detemir 40 units 10/21/21 22:00 10/25/21 20:28 Insulin Detemir 300 Units/3 Ml Insuln.Pen SUBCUT 10/21/22 21:59 40 units QHS CB Administration Lactulose 30 gm 10/21/21 17:51 Lactulose 20 Gm/30 Ml Udc PO 10/21/22 17:50 DAILY PRN Constipation Losartan Potassium 25 mg 10/22/21 09:00 10/25/21 08:08 Losartan 25 Mg Tablet PO 10/22/22 08:59 25 mg QAM [facility] Administration Magnesium Oxide 400 mg 10/22/21 09:00 10/25/21 08:07 Magnesium Oxide 400 Mg Tablet PO 10/22/22 08:59 400 mg QAM [facility] Administration Multivitamins 1 tab 10/22/21 09:00 10/25/21 [...] equipment to enhance the patient's a functional yazdanism Ensure adequate nutrition and hydration Sleep: Denies any issues Pain: Denies any issues Discharge planning: Home with in 7 to 10 days. I spent greater than 25 minutes for services, including ejqc-jv-gxxy encounter with the patient, discussion of the case, plan of care, and exam; and pjhetnj-xk-djem activities, such as reviewing pertinent immigration consultant documentation, recent therapy notes, laboratory and radiology studies, and discussionof case with care team including nursing, returned case inspector, and therapists. More than 50 % of time was spent on patient/family counseling or coordination ofcare. Documented By: Ghanshyam Kaye MD 10/25/212333 Signed By: <Electronically signed by Ghanshyam Kaye MD> 10/25/212336 [facility] Work Phone: [phone] [id number] Progress note Author Ghanshyam Kaye [facility] October 25, 2021 10:20am Note Date/Time October 23, 2021 11:5 7am [facility] [address] [place] [address] Physiatry(Rehab) Progress Note Signed Patient: Anai Goodman MR#: [id number] : 1955 Acct:[id number] Age/Sex: 66 / M Adm Date: 2 Loc: Room: [address] [place] [address] Type : ADM IN Attending Dr: Ghanshyam Kaye MD Copies to: ~ <Chante Narayan APRN - Last Filed: 10/23/21 11:57> Date of Service: 10/23/2021 Subjective <Chante Narayan APRN - Last Filed: 10/23/21 11:57> Subjective Narrative: Mr. Goodman is a 66 year old male who is admitted to [facility] inpatient rehab for strengthening s/p planned right BKA. Patient's past medical history significant for DM type II, CAD, HI, s/p pacemaker/defibrillator insertion, CKD, osteomyelitis of the [...] Asking about discharge, wants to talk to returned case inspector about insurance coverage, but thinks he would [...] Dose Route Start Last Admin Trade Name Melania PRN Reason Stop Dose Admin Acetaminophen 500 [...] mg 10/21/21 17:51 Bisacodyl 10 Mg Supp.Rect ND 10/21/22 17:50 DAILY PRN Constipation Bumetanide 2 [...] 17:51 Docusate Enema 283 Mg/5 Ml Enema ND 10/21/22 17:50 DAILY PRN Constipation Insulin Aspart 0 units 10/21/21 17:00 10/23/21 09:05 Insulin Aspart 300 Units/3 Ml Insuln.Pen SUBCUT 10/21/22 16:59 1 units TID.WM.HS CB Administration Protocol Insulin Aspart 0 units 10/21/21 17:00 10/23/21 09:06 Insulin Aspart 300 Units/3 Ml Insuln.Pen SUBCUT 10/21/22 16:59 4 units TID.WITH.MEALS.[facility] Administration Protocol Insulin Detemir 40 units 10/21/21 [...] mcg BID CB Administration Assessment/Plan <Chante Narayan, ACID FILLER - Last Filed: 10/23/21 11:57> Assessment/Plan (1) [...] equipment to enhance the patient's a functional yazdanism Ensure adequate nutrition and hydration Sleep: Denies any issues Pain: Denies any issues Discharge planning: Home with in 7 to 10 days. I spent greater than 15 minutes for services, including zfsp-es-vden encounter with the patient, discussion of the case, plan of care, and exam; and dlgjzuy-uc-xbbq activities, such as reviewing pertinent immigration consultant documentation, recent therapy notes, laboratory and radiology studies, and discussion of case with care team including physician, nursing, returned case inspector, and therapists. More than 50 % of [...] the chart, including currentorders, allied health and immigration consultant notes, labs/imaging and plan of care as above. Documented By: Chante Narayan APRN 10/23/21 1 150 Signed By: <Electronically signed by KRUNAL Narayan> 10/23/21 1157 <Electronically signed by Ghanshyam Kaye MD> 10/25/21 1023 [facility] Work Phone: 1(244) 997-329407-26-2022 History and physical note Author Ghanshyam Kaye [facility] October 25, 2021 9:36am Note Date/Time October 22, 2021 9:59 am [facility] [address] [place] [address] Physiatry (Rehab) H&P Signed Patient: Anai Goodman MR#: [id number] : 1955 Acct:[id number] Age/Sex: 66 / M Adm Date: 2 Loc: Room: 9L0406-2 Type : ADM IN Attending Dr: Ghanshyam Kaye MD Copies to: KRUNAL Mendez DO Joseph Riley, MD~ <Chante Narayan APRN - Last Filed: 10/22/21 10:24> Date of Service: 10/22/2021 HPI <Chante Narayan APRN - Last Filed: 10/22/21 10:24> The patient was seen and examined on: 10/21/21 History of Present Illness: Mr. Goodman is a 66 year old male who is admitted to [facility] inpatient rehab for strengthening s/p planned right BKA. Patient's past medical history significant for DM type II, CAD, HI, s/p pacemaker/defibrillator insertion, CKD, osteomyelitis of the [...] Bisacodyl (Bisacodyl 10 Mg Supp.Rect) 10 mg ND DAILY PRN PRN Reason: Constipation Stop: 10/21/22 17:50 Bumetanide (Bumetanide 2 Mg Tablet) 2 mg PO BID [facility] Stop: 10/21/22 20:59 Last Admin: 10/22/21 08:02 Dose: 2 mg Carvedilol (Carvedilol 6.25 Mg Tablet) 6.25 mg PO BID [facility] Stop: 10/21/22 20:59 Last Admin: 10/22/21 08:02 Dose: 6.25 mg Docusate Sodium (Docusate 100 Mg Capsule) 100 mg PO BID PRN PRN Reason: Constipation Stop: 10/21/22 17:50 Docusate Sodium (Docusate Enema 283 Mg/5 Ml Enema) 283 mg ND DAILY PRN PRN Reason: Constipation Stop: 10/21/22 17:50 Insulin Aspart (Insulin Aspart 300 Units/3 Ml Insuln.Pen) 0 units SUBCUT TID.WM.[facility]; Protocol Stop: 10/21/22 16:59 Last Admin: 10/22/21 08:01 Dose: 1 units Insulin Aspart (Insulin Aspart 300 Units/3 Ml Insuln.Pen) 0 units SUBCUT TID.WITH.MEALS.[facility]; Protocol Stop: 10/21/22 16:59 Last Admin: 10/22/21 08:01 Dose: 4 units Insulin Detemir (Insulin Detemir 300 Units/3 Ml Insuln.Pen) 40 units SUBCUT [facility] Stop: 10/21/22 21:59 Last Admin: 10/21/21 22:02 Dose: 40 units Lactulose (Lactulose 20 Gm/30 Ml Udc) 30 gm PO DAILY PRN PRN Reason: Constipation Stop: 10/21/22 17:50 Losartan Potassium (Losartan 25 Mg Tablet) [facility] [place] [place] Stop: 10/22/22 08:59 Last Admin: 10/22/21 08:05 Dose: 25 mg Magnesium Oxide (Magnesium Oxide 400 Mg Tablet) 400 mg PO QAM [facility] Stop: 10/22/22 08:59 Last Admin: 10/22/21 08:05 Dose: 400 mg Multivitamins (Multivitamin 1 Tab Tablet) 1 tab PO QAM [facility] Stop: 10/22/22 08:59 Last Admin: 10/22/21 08:05 Dose: 1 tab Nitroglycerin (Nitroglycerin 0.4 Mg Tab.Subl) 0.4 mg SUBLINGUAL DAILY PRN PRN Reason: Chest Pain Stop: 10/21/22 15:49 Rivaroxaban (Rivaroxaban 10 Mg Tablet) 10 mg PO DAILY [facility] Stop: 10/22/22 08:59 Last Admin: 10/22/21 08:06 Dose: 10 mg Fluticasone/Salmeterol (Fluticasone/Salmeterol 232-14 Mcg 60 Puff Inhaler) 1 puff INHALATION BID [facility] Stop: 10/21/22 20:59 Last Admin: 10/22/21 05:10 Dose: 1 puff Sennosides (Sennosides 8.6 Mg Tablet) 2 tab PO DAILY@12 PRN PRN Reason: If no BM in 2 days Stop: 10/22/22 11:59 Sodium Chloride (Sodium Chloride 0.9 % 10 Ml Syringe) 0 ml IV-PUSH PRN PRN PRN Reason: Flush Stop: 10/21/22 17:50 Spironolactone (Spironolactone 25 Mg Tablet) 25 mg PO QAM [facility] Stop: 10/22/22 08:59 Last Admin: 10/22/21 08:05 Dose: 25 mg Vitamin D (Cholecalciferol 125 Mcg (5,000 Units) Tablet) 250 mcg PO BID [facility] Stop: 10/21/22 20:59 Last Admin: 10/22/21 08:02 [...] % (Auto) 70.1 Lymph % (Auto) 10.0 Borden % (Auto) 14.8 Eos % (Auto) 4.5 Baso % (Auto) 0.6 Neut # (Auto) 4.6 Lymph # (Auto) 0.7 L Borden # (Auto) 1.0 H Eos # (Auto) [...] MPV Neut % (Auto) Lymph % (Auto) Borden % (Auto) Eos % (Auto) Baso % (Auto) Neut # (Auto) Lymph # (Auto) Borden # (Auto) Eos # (Auto) Baso # [...] 14 days Expected Discharge Destination: Home Rehabilitation [facility]: .4 Primary Diagnosis: Right BKA Patient?s/Family?s anticipated [...] 24 hour daily monitoring and intervention from Plating Foreman as well as other consulting physicians including internal medicine as well as 24 hour daily technical communication teacher nursing - for medical safe / optimal [...] oriented plan of care Assessment/Plan <Chante Winternory, ACID FILLER - Last Filed: 10/22/21 10:24> (1) Below [...] equipment to enhance the patient's a functional yazdanism Ensure adequate nutrition and hydration Sleep: Denies any issues Pain: Denies any issues Discharge planning: Home with in 7 to 10 days. I spent greater than 30 minutes for services, including ecwi-ot-enox encounter with the patient, discussion of the case, plan of care, and exam; and wknkjbw-ph-unmn activities, such as reviewing pertinent immigration consultant documentation, recent therapy notes, laboratory and radiology studies, and discussion of case with care team including physician, nursing, returned case inspector, and therapists. More than 50 % of [...] Allied health note review, nursing note review, immigration consultant note review, discussion with nursing and [...] chart, including current orders, allied health and immigration consultant notes, labs/imaging and performed rosado elements of exam and I formulated the plan of care and facilitated the medical decision making and confirmed the nurse practitioner note, as above Documented By: Chante Narayan APRN 10/22/21 0 949 Signed By: <Electronically signed by KRUNAL Narayan> 10/22/21 1024 <Electronically signed by Ghanshyam Kaye MD> 10/25/21 0936 [facility] Work Phone: 1(232) 618-595107-24-2022 Progress note Author Bronwyn Alegre [facility] October 23, 2021 3:11pm Note Date/Time October 23, 2021 3:11 pm [facility] [address] [place], [place] [id number] Hospitalist Progress Note Signed Patient: Anai Goodman MR#: [id number] : 1955 Acct:[id number] Age/Sex: 66 / M Adm Date: 2 Loc: Room: 1Q2648-0 Type : ADM IN Attending Dr: Ghanshyam [...] mg 10/21/21 17:51 Bisacodyl 10 Mg Supp.Rect ND 10/21/22 17:50 DAILY PRN Constipation Bumetanide 1 [...] 17:51 Docusate Enema 283 Mg/5 Ml Enema ND 10/21/22 17:50 DAILY PRN Constipation Insulin Aspart 0 units 10/21/21 17:00 10/23/21 13:13 Insulin Aspart 300 Units/3 Ml Insuln.Pen SUBCUT 10/21/22 16:59 2 units TID.WM.[facility] Administration Protocol Insulin Aspart 0 units 10/21/21 17:00 10/23/21 13:14 Insulin Aspart 300 Units/3 Ml Insuln.Pen SUBCUT 10/21/22 16:59 5 units TID.WITH.MEALS.[facility] Administration Protocol Insulin Detemir 40 units 10/21/21 22:00 10/22/21 20:27 Insulin Detemir 300 Units/3 Ml Insuln.Pen SUBCUT 10/21/22 21:59 40 units QHS CB Administration Lactulose 30 gm 10/21/21 17:51 Lactulose 20 Gm/30 Ml Udc PO 10/21/22 17:50 DAILY PRN Constipation Losartan Potassium 25 mg 10/22/21 09:00 10/23/21 09:07 Losartan 25 Mg Tablet PO 10/22/22 08:59 25 mg QAM [facility] Administration Magnesium Oxide 400 mg 10/22/21 09:00 10/23/21 09:07 Magnesium Oxide 400 Mg Tablet PO 10/22/22 08:59 400 mg QAM [facility] Administration Multivitamins 1 tab 10/22/21 09:00 10/23/21 09:07 Multivitamin 1 Tab Tablet PO 10/22/22 08:59 1 tab QAM [facility] Administration Nitroglycerin 0.4 mg 10/21/21 15:50 Nitroglycerin [...] Losartan, Spironolactone 2.? GRACY on CPAP 3. [id number] 7.3, continue detemir, SSI 4. CKD 3?trend [...] PCP and out patient providers to obtain [facility] record entirely to follow up on illnesses, symptoms, abnormal findings that I have and have not addressed duringthis encounter and hospitalization in out patient setting. Documented By: Bronwyn Alegre MD 10/23/21 1509 Signed By: <Electronically signed by Bronwyn Alegre MD> 10/23/21 1516 [facility] Work Phone: 1(722) 299-584207-24-2022 Consult note Author Bronwyn Alegre [facility] October 23, 2021 7:04am Note Date/Time October 22, 2021 4:18 pm [facility] [address] [place] [address] Hospitalist Consult Note Signed Patient: Anai Goodman MR#: [id number] : 1955 Acct:[id number] Age/Sex: 66 / M Adm Date: 2 Loc: Room: [address] [place] [address] Type : ADM IN Attending Dr: Ghanshyam Kaye MD Copies to: DO Ghanshyam Rushing MD Lynn A Stackhouse, ANP-BC Bronwyn Alegre MD~ HPI DATE OF CONSULTATION: 10/22/21 REQUESTING PROVIDER: Ghanshyam Kaye Consult Narrative Reason for Consult: Diabetes, hypertension HPI: 66-year-old male past medical history significant for hypertension, hyperlipidemia, CAD, AICD, GRCAY on CPAP, DM, PVD CKD 3. Patient [...] negative unless noted below or in HPI [facility] Attestation Statement: The following information was validated [...] mg 10/21/21 17:51 Bisacodyl 10 Mg Supp.Rect ND 10/21/22 17:50 DAILY PRN Constipation Bumetanide 2 [...] 17:51 Docusate Enema 283 Mg/5 Ml Enema ND 10/21/22 17:50 DAILY PRN Constipation Insulin Aspart 0 units 10/21/21 17:00 10/22/21 12:45 Insulin Aspart 300 Units/3 Ml Insuln.Pen SUBCUT 10/21/22 16:59 2 units TID.WM. CB Administration Protocol Insulin Aspart 0 units 10/21/21 17:00 10/22/21 12:46 Insulin Aspart 300 Units/3 Ml Insuln.Pen SUBCUT 10/21/22 16:59 2 units TID.WITH.MEALS.[facility] Administration Protocol Insulin Detemir 40 units 10/21/21 [...] CB Administration Multivitamins 1 tab 10/22/21 09:00 10/22/21 [...] % (Auto) 70.1, Lymph % (Auto) 10.0, Borden % (Auto) 14.8, Eos % (Auto) 4.5, Baso % (Auto) 0.6, Neut # (Auto) 4.6, Lymph # (Auto) 0.7 L, Borden # (Auto) 1.0 H, Eos # (Auto) [...] Losartan, Spironolactone 2.? GRACY on CPAP 3. [id number] 7.3, continue detemir, SSI 4. CKD 3?trend labs Documented By: ABDIRASHID Olmedo 2 1618 Signed By: <Electronically signed by ANP-SAUMYA Matias> 10/22/21 1658 <Electronically signed by Bronwyn Alegre MD> 10/23/21 0704 [facility] Work Phone: 1(164) 561-560307-22-2022 Progress note Author Rodrgiuez Loera [facility] October 21, 2021 8:37am Note Date/Time October 20, 2021 11:0 8am [facility] [address] [place] [address] Hospitalist Progress Note Signed Patient: Anai Goodman MR#: [id number] : 1955 Acct:[id number] Age/Sex: 66 / M Adm Date: 2 Loc: 4N Room: [address] [place] [address] Type : ADM IN Attending Dr: Reddy [...] Lactated Ringers IV 10/18/22 07:29 Not Given .[id number] CB Insulin Aspart 0 units 10/18/21 08:00 [...] signed by Rodriguez Loera MD> 10/21/21 0837 [facility] Work Phone: 1(683) 954-782307-21-2022 Progress note Author Rodriguez Loera [facility] October 20, 2021 8:45am Note Date/Time October 19, 2021 11:2 8am [facility] [address] [place] [address] Hospitalist Progress Note Signed Patient: Anai Goodman MR#: [id number] : 1955 Acct:[id number] Age/Sex: 66 / M Adm Date: 2 Loc: 4 Room: 9P8585-1 Type : ADM IN Attending Dr: Reddy [...] Lactated Ringers IV 10/18/22 07:29 75 mls/hr .[id number] BC Administration Insulin Aspart 0 units 10/18/21 08:00 [...] signed by Rodriguez Loera MD> 10/20/21 0845 [facility] Work Phone: 1(654) 845-614307-20-2022 Progress note Author Reddy Brandt [facility] October 19, 2021 12:11pm Note Date/Time October 19, 2021 12:1 1pm [facility] [address] [place] [address] Orthopedic Progress Note Signed Patient: Anai Goodman MR#: [id number] : 1955 Acct:[id number] Age/Sex: 66 / M Adm Date: 2 Loc: Room: [address] [place] [address] Type : ADM IN Attending Dr: Reddy [...] signed by Reddy Brandt DO> 10/19/21 1211 [facility] Work Phone: 1(380) 195-442107-20-2022 Consult note Author Stewart Lucio [facility] October 19, 2021 1:42am Note Date/Time October 19, 2021 1:11 am [facility] [address] [place] [address] Hospitalist Consult Note Signed Patient: Anai Goodman MR#: [id number] : 1955 Acct:[id number] Age/Sex: 66 / M Adm Date: 2 Loc: Room: 6Z1350-5 Type : ADM IN Attending Dr: Reddy [...] negative unless noted in the HPI below [facility] Attestation Statement: The following information was validated [...] Lactated Ringers IV 10/18/22 07:29 75 mls/hr .[id number] CB Administration Cefazolin Sodium 1 gm in [...] Insuln.Pen SUBCUT 10/18/22 07:59 6 units TID.WM.HS [facility] Administration Protocol Insulin Aspart 0 units 10/18/21 17:00 10/18/21 23:37 Insulin Aspart 300 Units/3 Ml Insuln.Pen SUBCUT 10/18/22 16:59 Not Given TID.WM.HS [facility] Insulin Detemir 40 units 10/18/21 22:00 10/18/21 21:39 Insulin Detemir 300 Units/3 Ml Insuln.Pen SUBCUT 10/18/22 21:59 40 units QHS [facility] Administration Losartan Potassium 25 mg 10/19/21 09:00 Losartan 25 Mg Tablet PO 10/19/22 08:59 QAM [facility] Magnesium Oxide 400 mg 10/19/21 09:00 Magnesium Oxide 400 Mg Tablet PO 10/19/22 08:59 QAM [facility] Multivitamins 1 tab 10/19/21 09:00 Multivitamin 1 Tab Tablet PO 10/19/22 08:59 QAM [facility] Nitroglycerin 0.4 mg 10/18/21 15:44 Nitroglycerin 0.4 [...] 60 Puff Inhaler INHALATION 10/19/22 08:59 BID [facility] Sodium Chloride 0 ml 10/18/21 14:00 10/18/21 [...] signed by Stewart Lucio MD> 10/19/21 0142 [facility] Work Phone: [phone]) 581-751907-13-2022 Evaluation note* Encounter Date Diagnosis Assessment Notes [...] osteomyelitis of right tibia (ICD-10 - M86.661) [employer] Other 07-07-2022 Evaluation note* Encounter Date Diagnosis Assessment Notes Treatment Notes Treatment Clinical Notes Sep, Other chronic osteomyelitis of right tibia (ICD-10 - M86.661) [employer] Other 07-07-2022 Evaluation note* Encounter Date Diagnosis [...] place his pacemaker into MRI mode. Anyway food technician was very helpful and she is [...] worse they are to call me WALT. [employer] Other 06-09-2022 Evaluation note* Encounter Date Diagnosis [...] to a suppressive dose at that time [employer] Other 11-23-2021 NoteChief Complaint Basal cell carcinoma [...] 03/03/2021 PATIENT : 1955 LOCATION OF PROCEDURE: [facility] SURGEON: Chirag Gutierrez DO INFORMED CONSENT: Obtained by and on file at [facility] CC: [Basal cell carcinoma left [...] get a repeat audiogr (more content not included)...[facility]10-11-2021 NoteChief Complaint Open wound Left ear History of Present Illness PLANNED PROCEDURE: Excision and preparation of surgical site, complex plastics myocutaneous advancement flap tear of left ear defect DATE OF PROCEDURE: 01/11/2021 PATIENT : 1955 LOCATION OF PROCEDURE: [facility], SURGEON: Chirag Gutierrez DO INFORMED CONSENT: Obtained by and on file at [facility] CC: Basal cell carcinoma left [...] reconstruction amputation of le (more content not included)...[facility] 01-05-2021 NoteChief Complaint MOHs procedure to left [...] Dr. Freed. Previous pathology by physician in [place] about 1 year ago. PMHx of multiple [...] This patient presented to the [facility] with a chief concern of skin cancer. [...] and corroborated preoperatively wit (more content not included)...[facility]10-06-2021 NoteClinical Information Procedure: Excision with frozen section left ear Pre-operative diagnosis: Basal cell carcinoma Outside pathology report from [facility] was received with accession number [id number]. SP Specimen A Skin of left ear, [...] left ear' are two elongated piecesof light raellano skin without gross lesions measuring 0.3 x [...] skin without gross lesi (more content not included)...[facility] CenterComment on above:Performed By: #### SPR ####[facility] (DEFAULT)[address] [place], [place] [address]Emmowqkbt summary Author Ghanshyam Kaye [facility] October 28, 2021 10:30am Note Date/Time October 27, 2021 1:34 pm [facility] [address] [place] [id number] Discharge Summary Signed Patient: Anai Goodman MR#: [id number] : 1955 Acct:[id number] Age/Sex: 66 / M Adm Date: 2 Loc: Room: 3E4332-[address]: Ghanshyam Kaye MD Copies to: [...] year old male who was admitted to [facility] inpatient rehabfor strengthening s/p planned right BKA. His past medical history significant for DM type II, CAD, HI, s/p pacemaker/defibrillator insertion, CKD, osteomyelitis of the [...] Patient's was on Xarelto while inpatient. Per [facility] pharmacy , insurance co-pay would be [...] year old male who was admitted to [facility] inpatient rehabfor strengthening s/p planned right BKA. His past medical history significant for DM type II, CAD, HI, s/p pacemaker/defibrillator insertion, CKD, osteomyelitis of the [...] Patient's was on Xarelto while inpatient. Per [facility] pharmacy , insurance co-pay would be [...] home prior. Your Home Health agency is [email or web address] ( ). They will usually contact you [...] them prior to your appointment. Instructions: Amputation, Zohbj-dpk-Lnfp (DC) Stand Alone Forms: Insulin Corrective Scale [...] signed by Ghanshyam Kaye MD> 10/28/21 1030 [facility] Work Phone: Evaluation noteNo emoquoMorris [employer] Other Evaluation note* Diagnosis Onset Date Resolution Status Below knee amputation acute Type 2 diabetes mellitus acu te [facility] Work Phone: Evaluation note* Diagnosis [...] wound of skin acute Wound dehiscence acute [facility] Work Phone: Evaluation note* Diagnosis Onset Date Resolution Status Below knee amputation acute Dehiscence of wound of skin acute Wound dehiscence acute [facility] Work Phone: Evaluation noteNo assessment information available [facility] Work Phone: Evaluation note* Diagnosis Preop cardiovascular exam- Primary Pre-operative cardiovascular examination Coronary artery disease involving ekuk coronary artery of ekuk heart without angina pectoris Ischemic cardiomyopathy Other specified forms of chronic ischemic heart disease Chronic systolic congestive heart failure ([facility]) Apical mural thrombus Essential (primary) hypertension Unspecified essential hypertension Cardiac defibrillator in place- [employer] Automatic implantable cardiac defibrillator in situ Mixed hyperlipidemia documented [facility] this encounter [facility] SystemEvaluation note* Diagnosis Type 2 diabetes mellitus with diabetic neuropathic arthropathy, with long-term current use of insulin ([facility]) documented in this encounter [employer] TherapeuticsHistory general Narrative - Reported* Type Description Date Medical History DM1 Medical History HTN Medical History HYPERLIPEDEMIA Surgical History LEFT FOOT SURGERY WITH REMOVAL OF ALL FIVE TOES Surgical History heart cath with 5 stents placem ent Hospitalization History MRSA 2011 Hospitalization History [employer] Other [employer] general Narrative - Reported* Type Description Date Medical History DM1 Medical History HTN Medical History HYPERLIPEDEMIA Surgical History LEFT FOOT SURGERY WITH REMOVAL OF ALL FIVE TOES Surgical History heart cath with 5 stents placem ent Surgical History right transtibial be low-knee amputation, right fibular osteotomy 10/17/21 Hospitalization History MRSA 2011 Hospitalization History [employer] Other [employer] general Narrative - Reported* Type Description Date [...] Heart Hospitalization History see above surg. hx. [employer] Other InstructionsNot on filedocumented in this encounter [facility] SystemInstructionsNot on filedocumented in this encounter [facility] CenterMissingLINK Summary Purpose Family History No Family History [...] yelitis of right tibia (M86.661) Referral Organization [facility] Referring Provider [...] section and content) DATE CREATED AUTHOR 05/12/2020 [facility] DATE CREATED AUTHOR AUTHOR'S ORGANIZ ATION 05/26/2021 [facility] DATE CREATED AUTHOR AUTHOR'S ORGANIZ ATION 08/23/2021 [facility] DATE CREATED AUTHOR AUTHOR'S ORGANIZ ATION 11/02/2021 [facility] DATE CREATED AUTHOR AUTHOR'S ORGANIZ ATION 10/17/2022 [facility] DATE CREATED AUTHOR AUTHOR'S ORGANIZ ATION 03/23/2023 [facility] DATE CREATED AUTHOR AUTHOR'S ORGANIZ ATION 04/08/[address] [facility] DATE CREATED AUTHOR AUTHOR'S ORGANIZ ATION 04/15/2023 [facility] REASON FOR VISIT (unrecogniz ed section and [...] Tatiana Jasso , RN Other Provider Active Rdaha Frederick , RN Other Provider Active Jana [...] MD Other Provider Active Mai Britton , [employer] INSTRUCTOR-C Other Provider Active Christiano Evans MD Other [...] DO Referring Provider Active Darien Bailey , [employer] INSTRUCTOR-C Attending Provider Activ e Team Status: Active [...] MD Other Provider Active Mai Britton , [employer] INSTRUCTOR-C Other Provider Active Christiano Evans MD Other [...] DO Admit Provider, Attending Provide r Active Information Security Officer Relationship Specialty Start Date End Date Deon Braxton DO [address] [id number] PCP - General Internal Medicine 01/22/17 Information Security Officer Relationship Specialty Start Date End Date Deon Braxton DO [address] [place] [address] PCP - General Internal Medicine 01/22/17 Goals [...] BE BASED ON THE PRIMARY CLINICAL RECORDS. [facility] [employer] [facility]. provides no warranty or guarantee of the accuracy or completeness of information in this document.
--- NOTE | 2023-04-16 09:31 | CA_ITS ---
[facility] Test Date: 2023-04-16 Pat Name: Caio Goodman Department: Room: - Gender: Male [employer] Senior Specialist: : 1955 Requested By: 2011 Order Number: [id number] Reading MD: ARACELI MULLINS Interpretive Statements biphasic doppler waveforms of the LLE PVR waveforms of the LLE with normal upstroke, amplitude and dicrotic notch Right: amputated RLE Left: - significant pressure gradient between DP and PT cuff - abnormal YULIANA Impression - amputated RLE - elevated left calf and DP indices, consistent with calcified, noncompressible arterial freeman, which may underestimate the degree of arterial disease - based on the doppler, PVR waveforms and recorded indices there is no hemodynamic impairment of the LLE at rest to the level of the DP cuff. - clinical correlation advised Electronically Signed On 04-17-2023 7:11:58 EST by ARACELI MULLINS
== END 2023-04-16 07:57 | disposition home or self-care (01) ==
LOC: CARD 07:56
PROVIDERS: PCP Internal Medicine; Visit Provider Podiatrist Foot & Ankle Surgery
DX: Z01.812 Encounter for preprocedural laboratory examination (principal); L97.324 Non-pressure chronic ulcer of left ankle with necrosis of bone; M86.272 Subacute osteomyelitis, left ankle and foot; E11.9 Type 2 diabetes mellitus without complications; Z79.01 Long term (current) use of anticoagulants; I25.10 Atherosclerotic heart disease of native coronary artery without angina pectoris; R09.89 Other specified symptoms and signs involving the circulatory and respiratory systems
CPT/HCPCS: 71046; 93923

== ENCOUNTER 2023-04-19 09:07 | Day surgery (SDC) | payer MEDICARE, SELFPAY ==
[2023-04-16 08:53] VITALS: BP 132/72; PULSE 84; RESP 16; TEMP 36.2; O2SAT 97; BMI 28.7
--- OUTSIDE RECORDS SUMMARY | 2023-04-19 09:27 | XMS_ITS | CCD ---
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 Role Phone DEON BRAXTON Primary Care Unavailable Chirag Gutierrez DO Attending [...] Unavailable DO Deon Braxton Primary Care Provider [phone] DO Reddy Brandt Attending Provider [phone] DO Reddy Brandt Referring Provider CRISTINA Bailey Attending Provider DO Reddy Brandt Admit Provider NBA Hope Other Provider Unavailable NBA Ruiz Other Provider Unavailable NBA Sorensen Other Provider Unavailable NBA Jasso Other Provider Unavailable NBA Frederick Other Provider Unavailable NBA Parmar Other Provider Unavailable MD Fredi Mendez Other Provider KRUNAL Galvin Other Provider DO Julia Segura Other Provider MD Armando Hanks Other Provider DO Golden Whatley Other Provider MD Adi Feng Other Provider [phone] MD Letty Turpin Other Provider Polly ANP-BC Faviola Other Provider MD Brett Muñoz Other Provider MD Dennis Larson Other Provider MD Rodriguez Loera Other Provider MD Cuauhtemoc Ramos Other Provider MD Darien Maria Other Provider MD Stewart Lucio Other Provider MD Sonido Murillo Other Provider Reba, [employer] 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 Walker Consulting Unavailable HIGHLANDER, SALINA Walker Attending Unavailable HIGHLANDER, SALINA Walker Admitting Unavailable YUHAS, DR CHAVARRIA Primary Care Unavailable HIGHLANDER, SALINA Walker Attending Unavailable HIGHLSALINA HURST Admitting Unavailable YUHAS, DR CHAVARRIA Primary Care Unavailable [facility], SAL[facility] Walker Attending Unavailable YUMARVAS, DR CHAVARRIA Primary Care Unavailable HIGHLANDER, SALINA Walker Admitting Unavailable HIGHLANDER, SALINA Walker Attending Unavailable YUHAS, DR CHAVARRIA Primary Care Unavailable HIGHLANDER, SALINA Walker Consulting Unavailable [facility], SALINA Walker Admitting Unavailable CLOUNAERTY, BALJEET [...] Provider Sebastian DO César Vega Emergency Provider [phone] Yumarvas, DO Chavarria Primary Care Provider [phone] DO Reddy Brandt A Attending Provider Yuhas, DO Deon Primary Care Provider [phone] DO Karly Reddy A Attending Provider [phone] Cortes, DO César Vega Emergency Provider Karly, Reddy A Admit Provider [phone] VargasGhanshyam Unavailable Yuhas, DO Chavarria Primary Care Provider [phone] DO Karly Reddy A Attending Provider Dung Serna Unavailable Dung Serna Admitting Unavailable Dung Serna Attending Unavailable [facility] Primary Care Unavailable Karly, Reddy A Attending Unavailable Karly, Reddy A Admitting Unavailable [facility] Primary Care Unavailable [facility] Primary Care Unavailable Karly, Reddy A Admitting Unavailable Karly, Reddy A Attending Unavailable Karly, Reddy A Attending Unavailable [facility] Primary Care Unavailable Karly, Reddy A Admitting Unavailable Karly, Reddy A Admitting Unavailable [facility] Primary Care Unavailable Karly, Reddy A Attending [...] Munoz Consulting Unavailable Ghanshyam Kaye Admitting Unavailable [facility] Primary Care Unavailable Ghanshyam Kaye Attending Unavailable [...] M Consulting Unavailable Munoz, Kassandra Consulting Unavailable [facility] Primary Care Unavailable Christiano Palacios Attending Unavailable Christiano Palacios Admitting Unavailable Reddy Brandt Attending Unavailable Reddy Brandt Admitting Unavailable [facility] Deon Primary Care Unavailable Reddy Brandt Admitting Unavailable [facility] Primary Care Unavailable Reddy Brandt Attending Unavailable [...] Chlorpheniramine; Translations: [chlorpheniramine] Drug Allergy 07-02-19 21 [facility] Repository (14 sources) Dextromethorphan; Translations: [dextromethorphan] Drug Allergy 10-19-19 22 Unknown Reaction [facility] Repository (20 sources) Doxycycline; Translations: [doxycycline] Drug Allergy 04-02-19 21 FELT LIKE A HEART ATTACK, Chest Pain [facility] Repository (17 sources) guaiFENesin; Translations: [guaiFENesin] Drug Allergy 04-14-19 16 [facility] Repository (17 sources) levoFLOXacin; Translations: [levoFLOXacin] Drug Allergy 04-02-19 21 Chest Pain [facility] Repository (18 sources) Phenylephrine; Translations: [phenylephrine] Drug Allergy 07-02-19 21 Unknown Reaction [facility] Repository (1 source) Tussionex [employer]; Translations: [Tussionex [employer]] Propensity to adverse reactions to drug (disorder) [facility] Repository (20 sources) Tussin Drug allergy [employer] ([employer]lipso) [employer] Other (15 sources) HYDROcodone; Translations: [hydrocodone] Drug Allergy 10-19-19 22 [facility] (4 sources) Chlorpheniramine / HYDROcodone; Translations: [TUSSIONEX] Drug Allergy [facility] Repository (4 sources) Dextromethorphan; Translations: [DEXTROMETHORPHAN HBR] Drug Allergy 10-18-19 23 Itching [facility] Repository (4 sources) [id number]-TH-UBVJCM INOPHEN; Translations: [PXKROCOHD-MX-VOGWH MINOPHEN] Propensity to adverse reactions to drug (disorder) 02-04-20 22 [facility] Repository (2 sources) Chlorpheniramine / HYDROcodone Drug Allergy Itching [facility] Medications Current Medications Medication Drug Class(es) Dates Sig (Normalized) Sig (Original) acetaminophen 500 mg oral tablet (13 sources) Start: 10-27-2021 take 500 mg by mouth every four hours Acetaminophen Active 500 MG PO Q4H 100 October 26, 2021 11:00pm take 1 capsule by mouth every si x hours Acetaminophen 500 MG 1 capsule as needed Orally every 6 hrs Active [id number] 200 actuat albuterol 0.09 mg/actuat metered dose [...] mL nebulizer Indications: COPD with acute exacerbation ([facility]) USE 3 ML VIA NEBULIZER [...] tablet Indications: Chronic systolic congestive heart failure ([facility]) Take 1 tablet (10 [...] arthropathy, with long-term current use of insulin ([facility]) CHANGE EVERY 2 WEEKS [...] arthropathy, with long-term current use of insulin ([facility]) Inject 15 Units under [...] myocardial infarction; Translations: [Atherosclerotic heart disease of [place] coronary artery without angina pectoris] Onset: 11-23-2017 [...] sources) Long-term current use of insulin; Translations: [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] Episodic Other and [...] Onset: 01-18-2021 Episodic Other aftercare (1 source) 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; Translations: [PROCESS HELPER CURRENT USE OF ASPIRIN] Onset: 03-02-2021 Episodic Other aftercare (1 source) [facility] (current) use of insulin; Translations: [PROCESS HELPER CURRENT USE OF INSULIN] Onset: 03-02-2021 Episodic Other aftercare (1 source) Other snf (current) drug therapy; Translations: [OTH PROCESS HELPER CURRENT DRUG THERAPY] Onset: 03-02-2021 Episodic Other [...] Name Value Interpretation Reference [facility] MR ANKLE LT W WO CONTon [...] Bennett MD on 04/05/2023 8:50 AM Normal [facility] XR cervical spine 2Von 10-05 XR cervical spine 2V [facility] [address] [place] [address] [place] [address] XRay Report Signed Patient: Anai Goodman MR#: [id number] : 1955 Acct:[id number] Age/Sex: 66 / M ADM Date: 10/05/22 Loc: D Room: Type: [facility] Attending Dr: Dung Serna MD Copies [...] Jose Sanabria M.D.10/05/2022 12:36 PM Dictation Location: [place] [address] Transcribed By: [facility] 10/05/22 1236 Dictated By: Jose Sanabria DO 10/05/22 1233 Signed By: 10/05/22 1236 [facility] Basic Metabolic Panelon 3 Anion gap [Moles/Vol] 12.0 mmol/L Normal 6.0-15.0 [facility] Comment on above: Performed By: #### C BC, BMP #### [facility] [address] Calcium [Mass/Vol] 10.0 mg/dL Normal 8.2-10.2 [facility] Comment on above: Performed By: #### C BC, BMP #### [facility] [address] [place] [address] [place] Chloride [Moles/Vol] 100 mmol/L Normal 95-114 [facility] Comment on above: Performed By: #### C BC, BMP #### [facility] [address] CO2 [Moles/Vol] 30.0 mmol/L Normal 22.0-30.0 [facility] Comment on above: Performed By: #### C BC, BMP #### [facility] [address] [place] [address] [place] Creatinine [Mass/Vol] 1.38 mg/dL High 0.64-1.27 [facility] Comment on above: Performed By: #### C BC, BMP #### [facility] [address] [place] [address] [place] Creatinine Clr Calc Pharmacy 66.84 [facility] Comment on above: Result Comment: PERF ORMED BY: [place] [address] PATHOLOGIST MESSAGE CLERK SESAR YOST M.D. Performed By: #### C BC, BMP #### [address] Estimated GFR ( Christal > 60 [facility] Comment on above: Result Comment: GFR estimated reference range: According to KDOQI guidelines, <60 ml/min/1.73m2 is sufficient to diagnose a patient with chronic kidney disease. Performed By: #### C BC, BMP #### [address] Estimated GFR (Non- Am 52 [facility] Comment on above: Performed By: #### C BC, BMP #### [address] Glucose [Mass/Vol] 130 mg/dL High 70-100 [facility] Comment on above: Result Comment: [place] Glucose Reference Range is dependent on time and content of last meal. Glucose of more than 200 mg/dL in a nonstressed, ambulatory subject supports the diagnosis of Diabetes Mellitus. ADA recommended reference range Performed By: #### C BC, BMP #### [address] Potassium [Moles/Vol] 4.0 mmol/L Normal 3.5-5.1 [facility] Comment on above: Performed By: #### C BC, BMP #### [address] Sodium [Moles/Vol] 138 mmol/L Normal 136-146 [facility] Comment on above: Performed By: #### C BC, BMP #### [address] Urea nitrogen [Mass/Vol] 22 mg/dL Normal 9-23 [facility] Comment on above: Performed By: #### C BC, BMP #### [address] Basophils Auto (Bld) [#/Vol] Ordered By: Spenser Elaine on 11-29-2021 Basophils (Bld) [#/Vol] 0.0 10*3/uL 0.0-0.2 [facility] Basophils/100 WBC Auto (Bld) Ordered By: Spenser Elaine on 11-29-2021 Basophils/100 WBC (Bld) 0.5 % . [facility] Blood hemoglobin measurement (mass/volume)Ordered By: Spenser Elaine on 11-29-2021 Hemoglobin (Bld) [Mass/Vol] 12.6 g/dL 13.0-17.0 [facility] Blood leukocytes automated c ount (number/volume)Ordered By: Spenser Elaine on 11-29-2021 WBC (Bld) [#/Vol] 6.8 10*3/uL 4.5-11.0 [facility] COVID CepheidOrdered By: Junior Cortes on 11-29-2021 SARS-CoV-2 (COVID-19) Ab IA Ql Negative Negative [facility] Comment on above: This is a duplicate Cepheid Xpert Xpress CoV-2/Flu/RSV Plus RNA by RT-PCR result to be used for statistical tracking purpose only. SARS-CoV-2 (COVID-19) RNA MEREDITH+probe Ql (Unsp spec) [facility] COVID-19 / Flu A/B / RSV PCR [...] or Cepheid Disclaimer revoked sooner. PERFORMED BY: [place] [address] PATHOLOGIST MESSAGE CLERK SESAR YOST M.D. Normal [facility] Comment on above: Performed By: #### C OVID19 FLU RSV, CEPHEID NEG #### [facility] [address] [place], [place] [id number] [facility] Cepheid COVID PCR Negativeon 11-29-2021 SARS-CoV-2 (COVID-19) RNA MEREDITH+probe Ql (Unsp spec) Negative Normal Negative [facility] Comment on above: Result Comment: This is a duplicate Cepheid Xpert Xpress CoV-2/Flu/RSV Plus RNA by RT-PCR result to be used for statistical tracking purpose only. PERFORMED BY: [place] [address] PATHOLOGIST MESSAGE CLERK SESAR YOST M.D. Performed By: #### C OVID19 FLU RSV, CEPHEID NEG #### [place] [id number] [facility] Complete Blood Count Auto Di ffon 11-29-2021 Basophils (Bld) [#/Vol] 0.0 10*3/uL Normal 0.0-0.2 [facility] Comment on above: Result Comment: PERF ORMED BY: [place] [address] PATHOLOGIST MESSAGE CLERK SESAR YOST M.D. Performed By: #### C BC, BMP #### [facility] [address] Basophils/100 WBC (Bld) 0.5 % Normal . [facility] Comment on above: Performed By: #### C BC, BMP #### [facility] [address] [place] [address] [place] Eosinophils (Bld) [#/Vol] 0.5 10*3/uL High 0.0-0.45 [facility] Comment on above: Performed By: #### C BC, BMP #### [address] Eosinophils/100 WBC (Bld) 7.5 % Normal . [facility] Comment on above: Performed By: #### C BC, BMP #### [address] Erythrocyte distribution width (RBC) [Ratio] 15.7 % High 12.0-14.8 [facility] Comment on above: Performed By: #### C BC, BMP #### [address] Hematocrit (Bld) [Volume fraction] 38.3 % Low 38.8-50.0 [facility] Comment on above: Performed By: #### C BC, BMP #### [facility] [address] [place] [address] [place] Hemoglobin (Bld) [Mass/Vol] 12.6 g/dL Low 13.0-17.0 [facility] Comment on above: Performed By: #### C BC, BMP #### [address] Lymphocytes (Bld) [#/Vol] 0.6 10*3/uL Low 1.00-4.8 [facility] Comment on above: Performed By: #### C BC, BMP #### [facility] [address] [place] [address] [place] Lymphocytes/100 WBC (Bld) 9.0 % Normal . [facility] Comment on above: Performed By: #### C BC, BMP #### [facility] [address] [place] [id number] [facility] MCH (RBC) [Entitic mass] 27.6 pg Normal 27.5-35.2 [facility] Comment on above: Performed By: #### C BC, BMP #### [facility] [address] MCV (RBC) [Entitic vol] 84.3 fL Normal 83.5-101 [facility] Comment on above: Performed By: #### C BC, BMP #### [facility] [address] Mean Corpuscular HGB Conc 32.8 g/dL Normal 32.5-35.6 [facility] Comment on above: Performed By: #### C BC, BMP #### [facility] [address] [place] [address] [place] Monocytes (Bld) [#/Vol] 0.7 10*3/uL Normal 0.0-0.8 [facility] Comment on above: Performed By: #### C BC, BMP #### [facility] [address] [place] [address] [place] Monocytes/100 WBC (Bld) 10.9 % Normal . [facility] Comment on above: Performed By: #### C BC, BMP #### [facility] [address] [place] [id number] [place] Neutrophils (Bld) [#/Vol] 4.9 10*3/uL Normal 1.8-7.7 [facility] Comment on above: Performed By: #### C BC, BMP #### [facility] [address] [place] [id number] [place] Neutrophils/100 WBC (Bld) 72.1 % Normal . [facility] Comment on above: Performed By: #### C BC, BMP #### [facility] [address] [place] [address] [place] Nucleated RBC/100 WBC (Bld) [Ratio] 0.0 % Normal 0-0.5 [facility] Comment on above: Performed By: #### C BC, BMP #### [facility] [address] Platelet mean volume (Bld) [Entitic vol] 9.3 fL Normal 6.6-10.1 [facility] Comment on above: Performed By: #### C BC, BMP #### [facility] [address] [place] [address] [place] Platelets (Bld) [#/Vol] 142 10*3/uL Low 150-450 [facility] Comment on above: Performed By: #### C BC, BMP #### [facility] [address] RBC (Bld) [#/Vol] 4.54 10*6/uL Normal 3.90-5.60 [facility] Comment on above: Performed By: #### C BC, BMP #### [facility] [address] [place] [address] [place] WBC (Bld) [#/Vol] 6.8 10*3/uL Normal 4.5-11.0 [facility] Comment on above: Performed By: #### C BC, BMP #### [address] Creatinine and Glomerular fi ltration rate.predicted panel (S/P/Bld)Ordered By: Spenser Elaine on 11-29-2021 Creatinine [Mass/Vol] 1.38 mg/dL 0.64-1.27 [facility] ECG 12 lead ECGon 11-29-2021 ECG 12 lead ECG [facility] [address] [place] [address] [place] [address] Electrocardiograph Report Signed Patient: Anai Goodman MR#: [id number] : 1955 Acct:[id number] Age/Sex: 66 / M ADM Date: 11/29/21 Loc: Room: 8Z5372-6 Type: DIS IN Attending Dr: Reddy Brandt [...] By Jose Ovalle DO 11/29 1629 Normal [facility] Eosinophils Auto (Bld) [#/Vo l]Ordered By: Spenser Elaine on 11-29-2021 Eosinophils (Bld) [#/Vol] 0.5 10*3/uL 0.0-0.45 [facility] Eosinophils/100 WBC Auto (Bl d)Ordered By: Spenser Elaine on 11-29-2021 Eosinophils/100 WBC (Bld) 7.5 % . [facility] Erythrocyte distribution wid th Auto (RBC) [Ratio]Ordered By: Spenser Elaine on 11-29-2021 Erythrocyte distribution width (RBC) [Ratio] 15.7 % 12.0-14.8 [facility] Estimated glomerular filtrat ion rate (GFR) non- AmericanOrdered By: Spenser Elaine on 11-29-2021 GFR/1.73 sq M.predicted among non-blacks MDRD (S/P/Bld) [Vol rate/Area] 52 mL/Min [facility] Glucose Glucometer (BldC) [M ass/Vol]Ordered By: Reddy Brandt on 11-29-2021 Glucose [Mass/Vol] 141 mg/dL [facility] Comment on above: Random Glucose Refer ence Range is dependent on time and content of last meal. Glucose of more than 200 mg/dL in a nonstressed, ambulatory subject supports the diagnosis of Diabetes Mellitus. Glucose Poct Glucometerson 0 11-29-2021 Commemt1 Glu2: Cleaned Meter Normal [facility] Comment on above: Result Comment: PERF ORMED BY: [place] [address] PATHOLOGIST MESSAGE CLERK SESAR YOST M.D. Performed By: #### C OVID19 FLU RSV, CEPHEID NEG #### [facility] [address] Glucose [Mass/Vol] 141 mg/dL Normal [facility] Comment on above: Result Comment: [place] om Glucose Reference Range is dependent on time and content of last meal. Glucose of more than 200 mg/dL in a nonstressed, ambulatory subject supports the diagnosis of Diabetes Mellitus. Performed By: #### C OVID19 FLU RSV, CEPHEID NEG #### [facility] [address] Hematocrit Auto (Bld) [Volum e fraction]Ordered By: Spenser Elaine on 11-29-2021 Hematocrit (Bld) [Volume fraction] 38.3 % 38.8-50.0 [facility] Laboratory - Hematology and Cell countsOrdered By: Spenser Elaine on 11-29-2021 Nucleated RBC/100 WBC (Bld) [Ratio] 0.0 % 0-0.5 [facility] Laboratory - Microbiology an d Antimicrobial susceptibilityOrdered By: César Cortes on 11-29-2021 SARS-CoV-2 (COVID-19) RNA MEREDITH+probe Ql (Unsp spec) N/A [facility] Lymphocytes Auto (Bld) [#/Vo l]Ordered By: Spenser Elaine on 11-29-2021 Lymphocytes (Bld) [#/Vol] 0.6 10*3/uL 1.00-4.8 [facility] Lymphocytes/100 WBC Auto (Bl d)Ordered By: Spenser Elaine on 11-29-2021 Lymphocytes/100 WBC (Bld) 9.0 % . [facility] MCH Auto (RBC) [Entitic mass ]Ordered By: Spenser Elaine on 11-29-2021 MCH (RBC) [Entitic mass] 27.6 pg 27.5-35.2 [facility] MCHC Auto (RBC) [Mass/Vol]Or dered By: Spenser Elaine on 11-29-2021 MCHC (RBC) [Mass/Vol] 32.8 g/dL 32.5-35.6 [facility] MCV Auto (RBC) [Entitic vol] Ordered By: Spenser Elaine on 11-29-2021 MCV (RBC) [Entitic vol] 84.3 fL 83.5-101 [facility] Monocytes Auto (Bld) [#/Vol] Ordered By: Spenser Elaine on 11-29-2021 Monocytes (Bld) [#/Vol] 0.7 10*3/uL 0.0-0.8 [facility] Monocytes/100 WBC Auto (Bld) Ordered By: Spenser Elaine on 11-29-2021 Monocytes/100 WBC (Bld) 10.9 % . [facility] Neutrophils Auto (Bld) [#/Vo l]Ordered By: Spenser Elaine on 11-29-2021 Neutrophils (Bld) [#/Vol] 4.9 10*3/uL 1.8-7.7 [facility] Neutrophils/100 WBC Auto (Bl d)Ordered By: Spenser Elaine on 11-29-2021 Neutrophils/100 WBC (Bld) 72.1 % . [facility] No Panel InformationOrdered By: Reddy Brandt on 11-29-2021 Bedside Glucose Comment Glu2: cleaned meter [facility] No Panel InformationOrdered By: Spenser Elaine on 11-29-2021 Estimated GFR () > 60 mL/Min [facility] Comment on above: GFR estimated refere nce range: According to KDOQI guidelines, <60 ml/min/1.73m2 is sufficient to diagnose a patient with chronic kidney disease. Pharmacy Creatinine Clearance (Chem 66.84 [facility] Platelet mean volume Auto (B ld) [Entitic vol]Ordered By: Spenser Elaine on 11-29-2021 Platelet mean volume (Bld) [Entitic vol] 9.3 fL 6.6-10.1 [facility] Platelets Auto (Bld) [#/Vol] Ordered By: Spenser Elaine on 11-29-2021 Platelets (Bld) [#/Vol] 142 10*3/uL 150-450 [facility] RBC Auto (Bld) [#/Vol]Ordere d By: Spenser Elaine on 11-29-2021 RBC (Bld) [#/Vol] 4.54 10*6/uL 3.90-5.60 [facility] Serum or plasma anion gap de terminationOrdered By: Spenser Elaine on 11-29-2021 Anion gap [Moles/Vol] 12.0 mmol/L 6.0-15.0 [facility] Serum or plasma calcium sergei urement (mass/volume)Ordered By: Spenser Elaine on 11-29-2021 Calcium [Mass/Vol] 10.0 mg/dL 8.2-10.2 [facility] Serum or plasma chloride zofia surement (moles/volume)Ordered By: Spenser Elaine on 11-29-2021 Chloride [Moles/Vol] 100 mmol/L 95-114 [facility] Serum or plasma glucose sergei urement (mass/volume)Ordered By: Spenser Elaine on 11-29-2021 Glucose [Mass/Vol] 130 mg/dL 70-100 [facility] Comment on above: ADA recommended refe [...] on 11-29-2021 Potassium [Moles/Vol] 4.0 mmol/L 3.5-5.1 [facility] Serum or plasma sodium measu rement (moles/volume)Ordered By: Spenser Elaine on 11-29-2021 Sodium [Moles/Vol] 138 mmol/L 136-146 [facility] Serum or plasma total carbon dioxide measurement (moles/volume)Ordered By: Spenser Elaine on 11-29-2021 CO2 [Moles/Vol] 30.0 mmol/L 22.0-30.0 [facility] Serum or plasma urea nitroge n measurement (mass/volume)Ordered By: Spenser Elaine on 11-29-2021 Urea nitrogen [Mass/Vol] 22 mg/dL 12-23 [facility] Glucose Glucometer (BldC) [M ass/Vol]Ordered By: Reddy Brandt on 11-03-2021 Glucose [Mass/Vol] 174 mg/dL [facility] Comment on above: Random Glucose Refer ence Range is dependent on time and content of last meal. Glucose of more than 200 mg/dL in a nonstressed, ambulatory subject supports the diagnosis of Diabetes Mellitus. Glucose Poct Glucometerson 0 11-03-2021 Commemt1 Glu2: Cleaned Meter Normal [facility] Comment on above: Result Comment: PERF ORMED BY: [facility] [address] [place] [address] PATHOLOGIST MESSAGE CLERK SESAR YOST M.D. Performed By: #### G LULS ####Point of Care testing, Glucose [Mass/Vol] 174 mg/dL Normal [facility] Comment on above: Result Comment: [place] Glucose Reference Range is dependent on time and content of last meal. Glucose of more than 200 mg/dL in a nonstressed, ambulatory subject supports the diagnosis of Diabetes Mellitus. Performed By: #### G LULS ####Point of Care testing, No Panel InformationOrdered By: Reddy Brandt on 11-03-2021 Bedside Glucose Comment Glu2: cleaned meter [facility] COVID-19 FRMCon 11-02-2021 SARS-CoV-2 (COVID-19) RNA MEREDITH+probe Ql (Unsp spec) Negative Normal Negative [facility] Comment on above: Order Comment: Healt hcare Worker?: N Result Comment: Testing for SARS-CoV-2 by RT-PCR This test was developed and its performance characteristics determined by [employer]) and validated at the The [facility]. This test has not been FDA cleared [...] is terminated or revoked sooner. PERFORMED BY: [place] [address] PATHOLOGIST MESSAGE CLERK SESAR YOST M.D. Performed By: #### C OVID19 FLU RSV, CEPHEID NEG #### [address] COVID-19 Positive/NegativeOr dered By: Reddy Brandt on 11-02-2021 SARS-CoV-2 (COVID-19) N gene MEREDITH+probe Ql (Resp) Negative Negative [facility] Comment on above: Testing for SARS-CoV -2 by RT-PCR This test was developed and its performance characteristics determined by [employer] ([employer]) and validated at the [facility]. This test has not been FDA cleared [...] and its performance characteristics determined by [employer] ([employer]) and validated at the [facility]. This test has not been FDA cleared [...] Kaye on 10-27-2021 Glucose [Mass/Vol] 166 mg/dL [facility] Comment on above: Random Glucose Refer ence Range is dependent on time and content of last meal. Glucose of more than 200 mg/dL in a nonstressed, ambulatory subject supports the diagnosis of Diabetes Mellitus. Glucose Poct Glucometerson 0 10-27-2021 Commemt1 Glu2: Cleaned Meter [facility] Comment on above: Result Comment: PERF ORMED BY: [facility] [address] [place] [address] PATHOLOGIST MESSAGE CLERK SESAR YOST M.D. Performed By: #### G LULS ####Point of Care testing, Glucose [Mass/Vol] 166 mg/dL Normal [facility] Comment on above: Result Comment: [facility] Glucose Reference Range is dependent on time and content of last meal. Glucose of more than 200 mg/dL in a nonstressed, ambulatory subject supports the diagnosis of Diabetes Mellitus. Performed By: #### G LULS ####Point of Care testing, Commemt1 Glu2: Cleaned Meter [facility] Comment on above: Result Comment: PERF ORMED BY: [address] [place] [address] PATHOLOGIST MESSAGE CLERK SESAR YOST M.D. Performed By: #### G LULS ####Point of Care testing, Glucose [Mass/Vol] 103 mg/dL Normal [facility] Comment on above: Result Comment: [place] [facility] Glucose Reference Range is dependent on time and content of last meal. Glucose of more than 200 mg/dL in a nonstressed, ambulatory subject supports the diagnosis of Diabetes Mellitus. Performed By: #### G LULS ####Point of Care testing, No Panel InformationOrdered By: Ghanshyam Kaye on 10-27-2021 Bedside Glucose Comment Glu2: cleaned meter [facility] Glucose Poct Glucometerson 0 10-26-2021 Glucose [Mass/Vol] 257 mg/dL Normal [facility] Comment on above: Result Comment: [place] [facility] Glucose Reference Range is dependent on time and content of last meal. Glucose of more than 200 mg/dL in a nonstressed, ambulatory subject supports the diagnosis of Diabetes Mellitus. PERFORMED BY: [place] [address] PATHOLOGIST MESSAGE CLERK SESAR YOST M.D. Performed By: #### G LULS ####Point of Care testing, Commemt1 Glu2: Cleaned Meter [facility] Comment on above: Result Comment: PERF ORMED BY: [place] [address] PATHOLOGIST MESSAGE CLERK SESAR YOST M.D. Performed By: #### A ERC #### [address] Glucose [Mass/Vol] 197 mg/dL Normal [facility] Comment on above: Result Comment: [place] [facility] Glucose Reference Range is dependent on time and content of last meal. Glucose of more than 200 mg/dL in a nonstressed, ambulatory subject supports the diagnosis of Diabetes Mellitus. Performed By: #### A ERC #### [place] [address] [place] Commemt1 Glu2: Cleaned Meter Normal [facility] Comment on above: Result Comment: PERF ORMED BY: [place] [address] PATHOLOGIST MESSAGE CLERK SESAR YOST M.D. Performed By: #### C OVID19 FLU RSV, CEPHEID NEG #### [facility] [address] Glucose [Mass/Vol] 144 mg/dL Normal [facility] Comment on above: Result Comment: [place] [facility] Glucose Reference Range is dependent on time and content of last meal. Glucose of more than 200 mg/dL in a nonstressed, ambulatory subject supports the diagnosis of Diabetes Mellitus. Performed By: #### C OVID19 FLU RSV, CEPHEID NEG #### [address] Commemt1 Glu2: Cleaned Meter Normal [facility] Comment on above: Result Comment: PERF ORMED BY: [place] [address] PATHOLOGIST MESSAGE CLERK SESAR YOST M.D. Performed By: #### C OVID19 FLU RSV, CEPHEID NEG #### [address] Glucose [Mass/Vol] 102 mg/dL Normal [facility] Comment on above: Result Comment: [place] [facility] Glucose Reference Range is dependent on time and content of last meal. Glucose of more than 200 mg/dL in a nonstressed, ambulatory subject supports the diagnosis of Diabetes Mellitus. Performed By: #### C OVID19 FLU RSV, CEPHEID NEG #### [facility] [address] Basic Metabolic Panelon 07-2 Calcium [Mass/Vol] 9.1 mg/dL Normal 8.2-10.2 [facility] Comment on above: Performed By: #### A ERC #### [facility] [address] [place] [address] [place] Chloride [Moles/Vol] 102 mmol/L Normal 95-114 [facility] Comment on above: Performed By: #### A ERC #### [facility] [address] CO2 [Moles/Vol] 25.8 mmol/L Normal 22.0-30.0 [facility] Comment on above: Performed By: #### A ERC #### [facility] [address] Creatinine [Mass/Vol] 1.24 mg/dL Normal 0.64-1.27 [facility] Comment on above: Performed By: #### A ERC #### [facility] [address] [place] [address] [place] Creatinine Clr Calc Pharmacy 60.35 [facility] Comment on above: Result Comment: PERF ORMED BY: [place] [address] PATHOLOGIST MESSAGE CLERK SESAR YOST M.D. Performed By: #### A ERC #### [facility] [address] Estimated GFR ( Christal > 60 [facility] Comment on above: Result Comment: GFR estimated reference range: According to KDOQI guidelines, <60 ml/min/1.73m2 is sufficient to diagnose a patient with chronic kidney disease. Performed By: #### A ERC #### [facility] [address] Estimated GFR (Non- Am 59 [facility] Comment on above: Performed By: #### A ERC #### [facility] [address] Glucose [Mass/Vol] 176 mg/dL High 70-100 [facility] Comment on above: Result Comment: [place] [facility] Glucose Reference Range is dependent on time and content of last meal. Glucose of more than 200 mg/dL in a nonstressed, ambulatory subject supports the diagnosis of Diabetes Mellitus. ADA recommended reference range Performed By: #### A ERC #### [facility] [address] Potassium [Moles/Vol] 3.6 mmol/L Normal 3.5-5.1 [facility] Comment on above: Performed By: #### A ERC #### [facility] [address] Sodium [Moles/Vol] 136 mmol/L Normal 136-146 [facility] Comment on above: Performed By: #### A ERC #### [facility] [address] Urea nitrogen [Mass/Vol] 32 mg/dL High 9-23 [facility] Comment on above: Performed By: #### A ERC #### [facility] [address] Basophils Auto (Bld) [#/Vol] Ordered By: Chante Narayan on 10-25-2021 Basophils (Bld) [#/Vol] 0.0 10*3/uL 0.0-0.2 [facility] Basophils/100 WBC Auto (Bld) Ordered By: Chante Narayan on 10-25-2021 Basophils/100 WBC (Bld) 0.3 % . [facility] Blood hemoglobin measurement (mass/volume)Ordered By: Chante Narayan on 10-25-2021 Hemoglobin (Bld) [Mass/Vol] 11.2 g/dL 13.0-17.0 [facility] Blood leukocytes automated c ount (number/volume)Ordered By: Chante Narayan on 10-25-2021 WBC (Bld) [#/Vol] 5.7 10*3/uL 4.5-11.0 [facility] Complete Blood Count Auto Di ffon 10-25-2021 Basophils (Bld) [#/Vol] 0.0 10*3/uL Normal 0.0-0.2 [facility] Comment on above: Result Comment: PERF ORMED BY: [place] [address] PATHOLOGIST MESSAGE CLERK SESAR YOST M.D. Performed By: #### A ERC #### [facility] [address] Basophils/100 WBC (Bld) 0.3 % Normal . [facility] Comment on above: Performed By: #### A ERC #### [facility] [address] Eosinophils (Bld) [#/Vol] 0.4 10*3/uL Normal 0.0-0.45 [facility] Comment on above: Performed By: #### A ERC #### [facility] [address] Eosinophils/100 WBC (Bld) 6.7 % Normal . [facility] Comment on above: Performed By: #### A ERC #### [address] Erythrocyte distribution width (RBC) [Ratio] 17.6 % High 12.0-14.8 [facility] Comment on above: Performed By: #### A ERC #### [address] Hematocrit (Bld) [Volume fraction] 33.0 % Low 38.8-50.0 [facility] Comment on above: Performed By: #### A ERC #### [address] Hemoglobin (Bld) [Mass/Vol] 11.2 g/dL Low 13.0-17.0 [facility] Comment on above: Performed By: #### A ERC #### [address] Lymphocytes (Bld) [#/Vol] 0.5 10*3/uL Low 1.00-4.8 [facility] Comment on above: Performed By: #### A ERC #### [address] Lymphocytes/100 WBC (Bld) 9.4 % Normal . [facility] Comment on above: Performed By: #### A ERC #### [address] MCH (RBC) [Entitic mass] 29.3 pg Normal 27.5-35.2 [facility] Comment on above: Performed By: #### A ERC #### [address] [place] [address] [place] MCV (RBC) [Entitic vol] 86.7 fL Normal 83.5-101 [facility] Comment on above: Performed By: #### A ERC #### [facility] [address] Mean Corpuscular HGB Conc 33.8 g/dL Normal 32.5-35.6 [facility] Comment on above: Performed By: #### A ERC #### [facility] [address] Monocytes (Bld) [#/Vol] 0.8 10*3/uL Normal 0.0-0.8 [facility] Comment on above: Performed By: #### A ERC #### [address] Monocytes/100 WBC (Bld) 14.5 % Normal . [facility] Comment on above: Performed By: #### A ERC #### [address] Neutrophils (Bld) [#/Vol] 4.0 10*3/uL Normal 1.8-7.7 [facility] Comment on above: Performed By: #### A ERC #### [address] Neutrophils/100 WBC (Bld) 69.1 % Normal . [facility] Comment on above: Performed By: #### A ERC #### [place] [address] [place] Nucleated RBC/100 WBC (Bld) [Ratio] 0.1 % Normal 0-0.5 [facility] Comment on above: Performed By: #### A ERC #### [address] Platelet mean volume (Bld) [Entitic vol] 8.6 fL Normal 6.6-10.1 [facility] Comment on above: Performed By: #### A ERC #### [place] [address] [place] Platelets (Bld) [#/Vol] 159 10*3/uL Normal 150-450 [facility] Comment on above: Performed By: #### A ERC #### [facility] [address] RBC (Bld) [#/Vol] 3.81 10*6/uL Low 3.90-5.60 [facility] Comment on above: Performed By: #### A ERC #### [facility] [address] WBC (Bld) [#/Vol] 5.7 10*3/uL Normal 4.5-11.0 [facility] Comment on above: Performed By: #### A ERC #### [facility] [address] Creatinine and Glomerular fi ltration rate.predicted panel (S/P/Bld)Ordered By: Chante Narayan on 10-25-2021 Creatinine [Mass/Vol] 1.24 mg/dL 0.64-1.27 [facility] Eosinophils Auto (Bld) [#/Vo l]Ordered By: Chante Narayan on 10-25-2021 Eosinophils (Bld) [#/Vol] 0.4 10*3/uL 0.0-0.45 [facility] Eosinophils/100 WBC Auto (Bl d)Ordered By: Chante Narayan on 10-25-2021 Eosinophils/100 WBC (Bld) 6.7 % . [facility] Erythrocyte distribution wid th Auto (RBC) [Ratio]Ordered By: Chante Narayan on 10-25-2021 Erythrocyte distribution width (RBC) [Ratio] 17.6 % 12.0-14.8 [facility] Estimated glomerular filtrat ion rate (GFR) non- AmericanOrdered By: Chante Narayan on 10-25-2021 GFR/1.73 sq M.predicted among non-blacks MDRD (S/P/Bld) [Vol rate/Area] 59 mL/Min [facility] Glucose Poct Glucometerson 0 10-25-2021 Glucose [Mass/Vol] 275 mg/dL Normal [facility] Comment on above: Result Comment: [place] Glucose Reference Range is dependent on time and content of last meal. Glucose of more than 200 mg/dL in a nonstressed, ambulatory subject supports the diagnosis of Diabetes Mellitus. PERFORMED BY: [place] [address] PATHOLOGIST MESSAGE CLERK SESAR YOST M.D. Performed By: #### G LULS ####Point of Care testing, Glucose [Mass/Vol] 249 mg/dL Normal [facility] Comment on above: Result Comment: [place] Glucose Reference Range is dependent on time and content of last meal. Glucose of more than 200 mg/dL in a nonstressed, ambulatory subject supports the diagnosis of Diabetes Mellitus. PERFORMED BY: [place] [address] PATHOLOGIST MESSAGE CLERK SESAR YOST M.D. Performed By: #### A ERC #### [address] Glucose [Mass/Vol] 160 mg/dL Normal [facility] Comment on above: Result Comment: [place] Glucose Reference Range is dependent on time and content of last meal. Glucose of more than 200 mg/dL in a nonstressed, ambulatory subject supports the diagnosis of Diabetes Mellitus. PERFORMED BY: [place] [address] PATHOLOGIST MESSAGE CLERK SESAR YOST M.D. Performed By: #### G LULS ####Point of Care testing, Hematocrit Auto (Bld) [Volum e fraction]Ordered By: Chante Narayan on 10-25-2021 Hematocrit (Bld) [Volume fraction] 33.0 % 38.8-50.0 [facility] Laboratory - Hematology and Cell countsOrdered By: Chante Narayan on 10-25-2021 Nucleated RBC/100 WBC (Bld) [Ratio] 0.1 % 0-0.5 [facility] Lymphocytes Auto (Bld) [#/Vo l]Ordered By: Chante Narayan on 10-25-2021 Lymphocytes (Bld) [#/Vol] 0.5 10*3/uL 1.00-4.8 [facility] Lymphocytes/100 WBC Auto (Bl d)Ordered By: Chante Narayan on 10-25-2021 Lymphocytes/100 WBC (Bld) 9.4 % . [facility] MCH Auto (RBC) [Entitic mass ]Ordered By: Chante Narayan on 10-25-2021 MCH (RBC) [Entitic mass] 29.3 pg 27.5-35.2 [facility] MCHC Auto (RBC) [Mass/Vol]Or dered By: Chante Narayan on 10-25-2021 MCHC (RBC) [Mass/Vol] 33.8 g/dL 32.5-35.6 [facility] MCV Auto (RBC) [Entitic vol] Ordered By: Chante Narayan on 10-25-2021 MCV (RBC) [Entitic vol] 86.7 fL 83.5-101 [facility] Monocytes Auto (Bld) [#/Vol] Ordered By: Chante Narayan on 10-25-2021 Monocytes (Bld) [#/Vol] 0.8 10*3/uL 0.0-0.8 [facility] Monocytes/100 WBC Auto (Bld) Ordered By: Chante Narayan on 10-25-2021 Monocytes/100 WBC (Bld) 14.5 % . [facility] Neutrophils Auto (Bld) [#/Vo l]Ordered By: Chante Narayan on 10-25-2021 Neutrophils (Bld) [#/Vol] 4.0 10*3/uL 1.8-7.7 [facility] Neutrophils/100 WBC Auto (Bl d)Ordered By: Chante Narayan on 10-25-2021 Neutrophils/100 WBC (Bld) 69.1 % . [facility] No Panel InformationOrdered By: Chante Narayan on 10-25-2021 Estimated GFR () > 60 mL/Min [facility] Comment on above: GFR estimated refere nce range: According to KDOQI guidelines, <60 ml/min/1.73m2 is sufficient to diagnose a patient with chronic kidney disease. Pharmacy Creatinine Clearance (Chem 60.35 [facility] Platelet mean volume Auto (B ld) [Entitic vol]Ordered By: Chante Narayan on 10-25-2021 Platelet mean volume (Bld) [Entitic vol] 8.6 fL 6.6-10.1 [facility] Platelets Auto (Bld) [#/Vol] Ordered By: Chante Narayan on 10-25-2021 Platelets (Bld) [#/Vol] 159 10*3/uL 150-450 [facility] RBC Auto (Bld) [#/Vol]Ordere d By: Chante Narayan on 10-25-2021 RBC (Bld) [#/Vol] 3.81 10*6/uL 3.90-5.60 [facility] Serum or plasma calcium sergei urement (mass/volume)Ordered By: Chante Narayan on 10-25-2021 Calcium [Mass/Vol] 9.1 mg/dL 8.2-10.2 [facility] Serum or plasma chloride zofia surement (moles/volume)Ordered By: Chante Narayan on 10-25-2021 Chloride [Moles/Vol] 102 mmol/L 95-114 [facility] Serum or plasma glucose sergei urement (mass/volume)Ordered By: Chante Narayan on 10-25-2021 Glucose [Mass/Vol] 176 mg/dL 70-100 [facility] Comment on above: ADA recommended refe rence range Random Glucose Reference Range is dependent on time and content of last meal. Glucose of more than 200 mg/dL in a nonstressed, ambulatory subject supports the diagnosis of Diabetes Mellitus. Serum or plasma potassium me asurement (moles/volume)Ordered By: Chante Narayan on 10-25-2021 Potassium [Moles/Vol] 3.6 mmol/L 3.5-5.1 [facility] Serum or plasma sodium measu rement (moles/volume)Ordered By: Chante Narayan on 10-25-2021 Sodium [Moles/Vol] 136 mmol/L 136-146 [facility] Serum or plasma total carbon dioxide measurement (moles/volume)Ordered By: Chante Narayan on 10-25-2021 CO2 [Moles/Vol] 25.8 mmol/L 22.0-30.0 [facility] Serum or plasma urea nitroge n measurement (mass/volume)Ordered By: Chante Narayan on 10-25-2021 Urea nitrogen [Mass/Vol] 32 mg/dL 12-23 [facility] Glucose Poct Glucometerson 0 10-24-2021 Glucose [Mass/Vol] 225 mg/dL Normal [facility] Comment on above: Result Comment: [place] [facility] Glucose Reference Range is dependent on time and content of last meal. Glucose of more than 200 mg/dL in a nonstressed, ambulatory subject supports the diagnosis of Diabetes Mellitus. Performed By: #### A ERC #### [address] Commemt1 Glu2: Cleaned Meter Normal [facility] Comment on above: Result Comment: PERF ORMED BY: [place] [address] PATHOLOGIST MESSAGE CLERK SESAR YOST M.D. Performed By: #### A ERC #### [address] Performed By: #### G LULS ####Point of Care testing, Glucose [Mass/Vol] 204 mg/dL Normal [facility] Comment on above: Result Comment: [place] Glucose Reference Range is dependent on time and content of last meal. Glucose of more than 200 mg/dL in a nonstressed, ambulatory subject supports the diagnosis of Diabetes Mellitus. Performed By: #### A ERC #### [facility] [address] [place] [address] Glucose [Mass/Vol] 164 mg/dL Normal [facility] Comment on above: Result Comment: [place] [facility] Glucose Reference Range is dependent on time and content of last meal. Glucose of more than 200 mg/dL in a nonstressed, ambulatory subject supports the diagnosis of Diabetes Mellitus. Performed By: #### G LULS ####Point of Care testing, Glucose [Mass/Vol] 129 mg/dL Normal [facility] Comment on above: Result Comment: [place] [facility] Glucose Reference Range is dependent on time and content of last meal. Glucose of more than 200 mg/dL in a nonstressed, ambulatory subject supports the diagnosis of Diabetes Mellitus. PERFORMED BY: [place] [address] PATHOLOGIST MESSAGE CLERK SESAR YOST M.D. Performed By: #### C OVID19 FLU RSV, CEPHEID NEG #### [place] [address] [place] Glucose Poct Glucometerson 0 10-23-2021 Commemt1 Glu2: Cleaned Meter [facility] Comment on above: Result Comment: PERF ORMED BY: [place] [address] PATHOLOGIST MESSAGE CLERK SESAR YOST M.D. Performed By: #### A ERC #### [address] Glucose [Mass/Vol] 256 mg/dL Normal [facility] Comment on above: Result Comment: [place] [facility] Glucose Reference Range is dependent on time and content of last meal. Glucose of more than 200 mg/dL in a nonstressed, ambulatory subject supports the diagnosis of Diabetes Mellitus. Performed By: #### A ERC #### [address] Glucose [Mass/Vol] 255 mg/dL Normal [facility] Comment on above: Result Comment: [place] [facility] Glucose Reference Range is dependent on time and content of last meal. Glucose of more than 200 mg/dL in a nonstressed, ambulatory subject supports the diagnosis of Diabetes Mellitus. PERFORMED BY: [place] [address] PATHOLOGIST MESSAGE CLERK SESAR YOST M.D. Performed By: #### G LULS #### Point of Care testing , Commemt1 Glu2: Cleaned Meter [facility] Comment on above: Result Comment: PERF ORMED BY: [facility] [address] [place] [address] PATHOLOGIST MESSAGE CLERK SESAR YOST M.D. Performed By: #### A ERC #### [place] [address] Glucose [Mass/Vol] 232 mg/dL Normal [facility] Comment on above: Result Comment: [place] [facility] Glucose Reference Range is dependent on time and content of last meal. Glucose of more than 200 mg/dL in a nonstressed, ambulatory subject supports the diagnosis of Diabetes Mellitus. Performed By: #### A ERC #### [facility] [address] [place] [address] [place] Commemt1 Glu2: Cleaned Meter Normal [facility] Comment on above: Result Comment: PERF ORMED BY: [place] [address] PATHOLOGIST MESSAGE CLERK SESAR YOST M.D. Performed By: #### C OVID19 FLU RSV, CEPHEID NEG #### [place] [address] [place] Glucose [Mass/Vol] 155 mg/dL Normal [facility] Comment on above: Result Comment: [place] [facility] Glucose Reference Range is dependent on time and content of last meal. Glucose of more than 200 mg/dL in a nonstressed, ambulatory subject supports the diagnosis of Diabetes Mellitus. Performed By: #### C OVID19 FLU RSV, CEPHEID NEG #### [address] Albumin [Mass/volume] in Ser um or PlasmaOrdered By: Chante Narayan on 10-22-2021 Albumin [Mass/Vol] 3.1 g/dL 3.2-5.5 [facility] Complete Blood Count Auto Di ffon 10-22-2021 Basophils (Bld) [#/Vol] 0.0 10*3/uL Normal 0.0-0.2 [facility] Comment on above: Result Comment: PERF ORMED BY: [place] [address] PATHOLOGIST MESSAGE CLERK SESAR YOST M.D. Performed By: #### C BC, BMP #### [place] [address] [place] Basophils/100 WBC (Bld) 0.6 % Normal . [facility] Comment on above: Performed By: #### C BC, BMP #### [facility] [address] Eosinophils (Bld) [#/Vol] 0.3 10*3/uL Normal 0.0-0.45 [facility] Comment on above: Performed By: #### C BC, BMP #### [facility] [address] Eosinophils/100 WBC (Bld) 4.5 % Normal . [facility] Comment on above: Performed By: #### C BC, BMP #### [facility] [address] Erythrocyte distribution width (RBC) [Ratio] 17.8 % High 12.0-14.8 [facility] Comment on above: Performed By: #### C BC, BMP #### [facility] [address] Hematocrit (Bld) [Volume fraction] 34.6 % Low 38.8-50.0 [facility] Comment on above: Performed By: #### C BC, BMP #### [facility] [address] Hemoglobin (Bld) [Mass/Vol] 11.8 g/dL Low 13.0-17.0 [facility] Comment on above: Performed By: #### C BC, BMP #### [facility] [address] [place] [address] [place] Lymphocytes (Bld) [#/Vol] 0.7 10*3/uL Low 1.00-4.8 [facility] Comment on above: Performed By: #### C BC, BMP #### [facility] [address] [place] [address] [place] Lymphocytes/100 WBC (Bld) 10.0 % Normal . [facility] Comment on above: Performed By: #### C BC, BMP #### [facility] [address] MCH (RBC) [Entitic mass] 29.5 pg Normal 27.5-35.2 [facility] Comment on above: Performed By: #### C BC, BMP #### [facility] [address] MCV (RBC) [Entitic vol] 86.7 fL Normal 83.5-101 [facility] Comment on above: Performed By: #### C BC, BMP #### [facility] [address] Mean Corpuscular HGB Conc 34.0 g/dL Normal 32.5-35.6 [facility] Comment on above: Performed By: #### C BC, BMP #### [facility] [address] [place] [address] [place] Monocytes (Bld) [#/Vol] 1.0 10*3/uL High 0.0-0.8 [facility] Comment on above: Performed By: #### C BC, BMP #### [facility] [address] [place] [address] [place] Monocytes/100 WBC (Bld) 14.8 % Normal . [facility] Comment on above: Performed By: #### C BC, BMP #### [facility] [address] [place] [address] [place] Neutrophils (Bld) [#/Vol] 4.6 10*3/uL Normal 1.8-7.7 [facility] Comment on above: Performed By: #### C BC, BMP #### [facility] [address] [place] [address] [place] Neutrophils/100 WBC (Bld) 70.1 % Normal . [facility] Comment on above: Performed By: #### C BC, BMP #### [facility] [address] [place] [address] [place] Nucleated RBC/100 WBC (Bld) [Ratio] 0.0 % Normal 0-0.5 [facility] Comment on above: Performed By: #### C BC, BMP #### [facility] [address] Platelet mean volume (Bld) [Entitic vol] 8.8 fL Normal 6.6-10.1 [facility] Comment on above: Performed By: #### C BC, BMP #### [facility] [address] Platelets (Bld) [#/Vol] 148 10*3/uL Low 150-450 [facility] Comment on above: Performed By: #### C BC, BMP #### [facility] [address] [place] [address] RBC (Bld) [#/Vol] 3.99 10*6/uL Normal 3.90-5.60 [facility] Comment on above: Performed By: #### C BC, BMP #### [address] WBC (Bld) [#/Vol] 6.6 10*3/uL Normal 4.5-11.0 [facility] Comment on above: Performed By: #### C BC, BMP #### [address] Comprehensive Metabolic Pane ray 10-22-2021 Albumin [Mass/Vol] 3.1 g/dL Low 3.2-5.5 [facility] Comment on above: Performed By: #### C BC, BMP #### [address] Albumin/Globulin [Mass ratio] 1.0 {ratio} Normal [facility] Comment on above: Performed By: #### C BC, BMP #### [address] ALP [Catalytic activity/Vol] 71 U/L Normal 32-92 [facility] Comment on above: Performed By: #### C BC, BMP #### [facility] [address] [place] [address] ALT [Catalytic activity/Vol] 21 U/L Normal 10-60 [facility] Comment on above: Performed By: #### C BC, BMP #### [address] AST [Catalytic activity/Vol] 23 U/L Normal 10-42 [facility] Comment on above: Performed By: #### C BC, BMP #### [facility] [address] [place] [address] [place] Bilirubin [Mass/Vol] 1.0 mg/dL Normal 0.3-1.2 [facility] Comment on above: Performed By: #### C BC, BMP #### [facility] [address] [place] [phone] [place] Calcium [Mass/Vol] 9.3 mg/dL Normal 8.2-10.2 [facility] Comment on above: Performed By: #### C BC, BMP #### [facility] [address] [place] [address] [place] Chloride [Moles/Vol] 100 mmol/L Normal 95-114 [facility] Comment on above: Performed By: #### C BC, BMP #### [facility] [address] [place] [phone] [facility] CO2 [Moles/Vol] 29.2 mmol/L Normal 22.0-30.0 [facility] Comment on above: Performed By: #### C BC, BMP #### [facility] [address] [place] [address] [place] Creatinine [Mass/Vol] 1.32 mg/dL High 0.64-1.27 [facility] Comment on above: Performed By: #### C BC, BMP #### [facility] [address] [place] [phone] [place] Creatinine Clr Calc Pharmacy 53.74 [facility] Comment on above: Performed By: #### C BC, BMP #### [facility] [address] [place] [phone] [place] Estimated GFR ( Christal > 60 [facility] Comment on above: Result Comment: GFR estimated reference range: According to KDOQI guidelines, <60 ml/min/1.73m2 is sufficient to diagnose a patient with chronic kidney disease. Performed By: #### C BC, BMP #### [facility] [address] [place] [phone] [place] Estimated GFR (Non- Am 55 [facility] Comment on above: Performed By: #### C BC, BMP #### [facility] [address] Globulin (S) [Mass/Vol] 3.0 g/dL Normal [facility] Comment on above: Performed By: #### C BC, BMP #### [facility] [address] Glucose [Mass/Vol] 179 mg/dL High 70-100 [facility] Comment on above: Result Comment: [facility] Glucose Reference Range is dependent on time and content of last meal. Glucose of more than 200 mg/dL in a nonstressed, ambulatory subject supports the diagnosis of Diabetes Mellitus. ADA recommended reference range Performed By: #### C BC, BMP #### [address] Potassium [Moles/Vol] 3.5 mmol/L Normal 3.5-5.1 [facility] Comment on above: Performed By: #### C BC, BMP #### [address] Protein [Mass/Vol] 6.1 g/dL Normal 6.1-7.9 [facility] Comment on above: Performed By: #### C BC, BMP #### [address] Sodium [Moles/Vol] 137 mmol/L Normal 136-146 [facility] Comment on above: Performed By: #### C BC, BMP #### [address] Urea nitrogen [Mass/Vol] 32 mg/dL High 12-23 [facility] Comment on above: Performed By: #### C BC, BMP #### [address] Globulin Calc (S) [Mass/Vol] Ordered By: Chante Narayan on 10-22-2021 Globulin (S) [Mass/Vol] 3.0 g/dL [facility] Glucose Poct Glucometerson 0 10-22-2021 Glucose [Mass/Vol] 286 mg/dL Normal [facility] Comment on above: Result Comment: [place] [facility] Glucose Reference Range is dependent on time and content of last meal. Glucose of more than 200 mg/dL in a nonstressed, ambulatory subject supports the diagnosis of Diabetes Mellitus. PERFORMED BY: [place] [address] PATHOLOGIST MESSAGE CLERK SESAR YOST M.D. Performed By: #### G LULS #### Point of Care testing , Commemt1 Glu2: Cleaned Meter Normal [facility] Comment on above: Result Comment: PERF ORMED BY: [place] [address] PATHOLOGIST MESSAGE CLERK SESAR YOST M.D. Performed By: #### A ERC #### [address] Glucose [Mass/Vol] 267 mg/dL Normal [facility] Comment on above: Result Comment: [place] [facility] Glucose Reference Range is dependent on time and content of last meal. Glucose of more than 200 mg/dL in a nonstressed, ambulatory subject supports the diagnosis of Diabetes Mellitus. Performed By: #### A ERC #### [facility] [address] [place] [address] [place] Glucose [Mass/Vol] 226 mg/dL Normal [facility] Comment on above: Result Comment: [place] [facility] Glucose Reference Range is dependent on time and content of last meal. Glucose of more than 200 mg/dL in a nonstressed, ambulatory subject supports the diagnosis of Diabetes Mellitus. PERFORMED BY: [place] [address] PATHOLOGIST MESSAGE CLERK SESAR YOST M.D. Performed By: #### C OVID19 FLU RSV, CEPHEID NEG #### [facility] [address] [place] [address] [place] Glucose [Mass/Vol] 175 mg/dL Normal [facility] Comment on above: Result Comment: [place] [facility] Glucose Reference Range is dependent on time and content of last meal. Glucose of more than 200 mg/dL in a nonstressed, ambulatory subject supports the diagnosis of Diabetes Mellitus. PERFORMED BY: [place] [address] PATHOLOGIST MESSAGE CLERK SESAR YOST M.D. Performed By: #### C OVID19 FLU RSV, CEPHEID NEG #### [address] [address] [place] Prealbuminon 10-22-2021 Prealbumin [Mass/Vol] 19.4 mg/dL Normal 18.0-38.0 [facility] Comment on above: Result Comment: PERF ORMED BY: [place] [address] PATHOLOGIST MESSAGE CLERK SESAR YOST M.D. Performed By: #### C BC, BMP #### [facility] [address] [place], [place] [id number] [facility] Protein [Mass/volume] in Ser um or PlasmaOrdered By: Chante Narayan on 10-22-2021 Protein [Mass/Vol] 6.1 g/dL 6.1-7.9 [facility] Serum or plasma alanine dasilva otransferase measurement without P-5'-P (enzymatic activiOrdered By: Chante Narayan on 10-22-2021 ALT No additional P-5'-P [Catalytic activity/Vol] 21 U/L 10-60 [facility] Serum or plasma albumin/glob ulin mass ratioOrdered By: Chante Narayan on 10-22-2021 Albumin/Globulin [Mass ratio] 1.0 {ratio} [facility] Serum or plasma alkaline bob sphatase measurement (enzymatic activity/volume)Ordered By: Chante Narayan on 10-22-2021 ALP [Catalytic activity/Vol] 71 U/L 32-92 [facility] Serum or plasma aspartate am inotransferase measurement (enzymatic activity/volume)Ordered By: Chante Narayan on 10-22-2021 AST [Catalytic activity/Vol] 23 U/L 10-42 [facility] Serum or plasma prealbumin m easurement (mass/volume)Ordered By: Chante Narayan on 10-22-2021 Prealbumin [Mass/Vol] 19.4 mg/dL 18.0-38.0 [facility] Serum or plasma total biliru bin measurement (mass/volume)Ordered By: Chante Narayan on 10-22-2021 Bilirubin [Mass/Vol] 1.0 mg/dL 0.3-1.2 [facility] Bacteria identified Anaer cx Nom (Unsp spec)Ordered By: Reddy Brandt on 10-21-2021 Anaerobic microbial culture No Anaerobes Isolated 3 Days [facility] COVID-19 FRMCon 10-21-2021 SARS-CoV-2 (COVID-19) RNA MEREDITH+probe Ql (Unsp spec) Negative Normal Negative [facility] Comment on above: Order Comment: Comme nt Required for rehab admission Healthcare Worker?: N Result Comment: Testing for SARS-CoV-2 by RT-PCR This test was developed and its performance characteristics determined by [employer]) and validated at the [facility]. This test has not been FDA cleared [...] is terminated or revoked sooner. PERFORMED BY: [facility] [address] [place] [address] PATHOLOGIST MESSAGE CLERK SESAR YOST M.D. Performed By: #### C OVID19 FLU RSV, CEPHEID NEG #### [address] COVID-19 Positive/NegativeOr dered By: Reddy Brandt on 10-21-2021 SARS-CoV-2 (COVID-19) N gene MEREDITH+probe Ql (Resp) Negative Negative [facility] Comment on above: Testing for SARS-CoV -2 by RT-PCR This test was developed and its performance characteristics determined by [employer] ([employer]) and validated at the [facility]. This test has not been FDA cleared [...] Brandt on 10-21-2021 Glucose [Mass/Vol] 298 mg/dL [facility] Comment on above: Random Glucose Refer ence Range is dependent on time and content of last meal. Glucose of more than 200 mg/dL in a nonstressed, ambulatory subject supports the diagnosis of Diabetes Mellitus. Glucose Poct Glucometerson 0 10-21-2021 Commemt1 Glu2: Cleaned Meter Normal [facility] Comment on above: Result Comment: PERF ORMED BY: [place] [address] PATHOLOGIST MESSAGE CLERK SESAR YOST M.D. Performed By: #### C OVID19 FLU RSV, CEPHEID NEG #### [address] Glucose [Mass/Vol] 314 mg/dL Normal [facility] Comment on above: Result Comment: [place] Glucose Reference Range is dependent on time and content of last meal. Glucose of more than 200 mg/dL in a nonstressed, ambulatory subject supports the diagnosis of Diabetes Mellitus. Performed By: #### C OVID19 FLU RSV, CEPHEID NEG #### [place] [address] [place] Commemt1 Glu2: Cleaned Meter [facility] Comment on above: Result Comment: PERF ORMED BY: [place] [address] PATHOLOGIST MESSAGE CLERK SESAR YOST M.D. Performed By: #### C OVID19 FLU RSV, CEPHEID NEG #### [address] Glucose [Mass/Vol] 298 mg/dL Normal [facility] Comment on above: Result Comment: [place] [facility] Glucose Reference Range is dependent on time and content of last meal. Glucose of more than 200 mg/dL in a nonstressed, ambulatory subject supports the diagnosis of Diabetes Mellitus. Performed By: #### C OVID19 FLU RSV, CEPHEID NEG #### [address] Commemt1 [facility] Comment on above: Result Comment: Glu2 : WILL NOTIFY DR/RN Performed By: #### C OVID19 FLU RSV, CEPHEID NEG #### [place] [address] [place] Commemt2 Cleaned Meter [facility] Comment on above: Result Comment: PERF ORMED BY: [place] [address] PATHOLOGIST MESSAGE CLERK SESAR YOST M.D. Performed By: #### C OVID19 FLU RSV, CEPHEID NEG #### [address] Glucose [Mass/Vol] 316 mg/dL Normal [facility] Comment on above: Result Comment: [place] [facility] Glucose Reference Range is dependent on time and content of last meal. Glucose of more than 200 mg/dL in a nonstressed, ambulatory subject supports the diagnosis of Diabetes Mellitus. Performed By: #### C OVID19 FLU RSV, CEPHEID NEG #### [place] [address] [place] Commemt1 Glu2: Cleaned Meter Normal [facility] Comment on above: Result Comment: PERF ORMED BY: [place] [address] PATHOLOGIST MESSAGE CLERK SESAR YOST M.D. Performed By: #### C OVID19 FLU RSV, CEPHEID NEG #### [address] Glucose [Mass/Vol] 308 mg/dL Normal [facility] Comment on above: Result Comment: [place] [facility] Glucose Reference Range is dependent on time and content of last meal. Glucose of more than 200 mg/dL in a nonstressed, ambulatory subject supports the diagnosis of Diabetes Mellitus. Performed By: #### C OVID19 FLU RSV, CEPHEID NEG #### [address] Glucose [Mass/Vol] 240 mg/dL Normal [facility] Comment on above: Result Comment: [place] [facility] Glucose Reference Range is dependent on time and content of last meal. Glucose of more than 200 mg/dL in a nonstressed, ambulatory subject supports the diagnosis of Diabetes Mellitus. PERFORMED BY: [place] [address] PATHOLOGIST MESSAGE CLERK SESAR YOST M.D. Performed By: #### C BC, BMP #### [address] No Panel InformationOrdered By: Reddy Brandt on 10-21-2021 Bedside Glucose Comment Glu2: cleaned meter [facility] Bedside Glucose #2 Comment Cleaned meter [facility] Glucose Poct Glucometerson 0 10-20-2021 Glucose [Mass/Vol] 253 mg/dL Normal [facility] Comment on above: Result Comment: [place] [facility] Glucose Reference Range is dependent on time and content of last meal. Glucose of more than 200 mg/dL in a nonstressed, ambulatory subject supports the diagnosis of Diabetes Mellitus. PERFORMED BY: [place] [address] PATHOLOGIST MESSAGE CLERK SESAR YOST M.D. Performed By: #### C OVID19 FLU RSV, CEPHEID NEG #### [address] Glucose [Mass/Vol] 215 mg/dL Normal [facility] Comment on above: Result Comment: [place] [facility] Glucose Reference Range is dependent on time and content of last meal. Glucose of more than 200 mg/dL in a nonstressed, ambulatory subject supports the diagnosis of Diabetes Mellitus. PERFORMED BY: [place] [address] PATHOLOGIST MESSAGE CLERK SESAR YOST M.D. Performed By: #### C OVID19 FLU RSV, CEPHEID NEG #### [address] Glucose [Mass/Vol] 221 mg/dL Normal [facility] Comment on above: Result Comment: [place] Glucose Reference Range is dependent on time and content of last meal. Glucose of more than 200 mg/dL in a nonstressed, ambulatory subject supports the diagnosis of Diabetes Mellitus. PERFORMED BY: [place] [address] PATHOLOGIST MESSAGE CLERK SESAR YOST M.D. Performed By: #### C BC, BMP #### [address] Glucose [Mass/Vol] 203 mg/dL Normal [facility] Comment on above: Result Comment: [place] Glucose Reference Range is dependent on time and content of last meal. Glucose of more than 200 mg/dL in a nonstressed, ambulatory subject supports the diagnosis of Diabetes Mellitus. PERFORMED BY: [place] [address] PATHOLOGIST MESSAGE CLERK SESAR YOST M.D. Performed By: #### C OVID19 FLU RSV, CEPHEID NEG #### [address] ABO and Rh group post transf usion reaction Nom (Bld)Ordered By: Reddy Brandt on 10-19-2021 Microscopic observation Gram stain Nom (Unsp spec) [facility] Glucose Poct Glucometerson 0 10-19-2021 Glucose [Mass/Vol] 291 mg/dL Normal [facility] Comment on above: Result Comment: [place] [facility] Glucose Reference Range is dependent on time and content of last meal. Glucose of more than 200 mg/dL in a nonstressed, ambulatory subject supports the diagnosis of Diabetes Mellitus. PERFORMED BY: [place] [address] PATHOLOGIST MESSAGE CLERK SESAR YOST M.D. Performed By: #### A ERC #### [facility] [address] [place] [address] [place] Glucose [Mass/Vol] 271 mg/dL Normal [facility] Comment on above: Result Comment: [place] [facility] Glucose Reference Range is dependent on time and content of last meal. Glucose of more than 200 mg/dL in a nonstressed, ambulatory subject supports the diagnosis of Diabetes Mellitus. PERFORMED BY: [place] [address] PATHOLOGIST MESSAGE CLERK SESAR YOST M.D. Performed By: #### C BC, BMP #### [place] [address] [place] Glucose [Mass/Vol] 320 mg/dL Normal [facility] Comment on above: Result Comment: [place] [facility] Glucose Reference Range is dependent on time and content of last meal. Glucose of more than 200 mg/dL in a nonstressed, ambulatory subject supports the diagnosis of Diabetes Mellitus. PERFORMED BY: [place] [address] PATHOLOGIST MESSAGE CLERK SESAR YOST M.D. Performed By: #### C OVID19 FLU RSV, CEPHEID NEG #### [facility] [address] [place] [address] [place] Glucose [Mass/Vol] 266 mg/dL Normal [facility] Comment on above: Result Comment: [place] [facility] Glucose Reference Range is dependent on time and content of last meal. Glucose of more than 200 mg/dL in a nonstressed, ambulatory subject supports the diagnosis of Diabetes Mellitus. PERFORMED BY: [place] [address] PATHOLOGIST MESSAGE CLERK SESAR YOST M.D. Performed By: #### C BC, BMP #### [facility] [address] [place] [address] Glucose [Mass/Vol] 294 mg/dL Normal [facility] Comment on above: Result Comment: [place] [facility] Glucose Reference Range is dependent on time and content of last meal. Glucose of more than 200 mg/dL in a nonstressed, ambulatory subject supports the diagnosis of Diabetes Mellitus. PERFORMED BY: [place] [phone] PATHOLOGIST MESSAGE CLERK SESAR YOST M.D. Performed By: #### C OVID19 FLU RSV, CEPHEID NEG #### [address] ABO/Rh Retypeon 10-18-2021 ABO/RH Recheck Result Negative [facility] Comment on above: Result Comment: PERF ORMED BY: [place] [id number] PATHOLOGIST MESSAGE CLERK SESAR YOST M.D. Aerobic Cultureon 10-18-2021 Aerobic Culture Comment Right Tibia No Growth 2 Days Comment Right Tibia No Anaerobes Isolated 3 Days Comment Right [place]ia Gram Stain Result No Bacteria Seen PERFORMED BY: [phone] PATHOLOGIST MESSAGE CLERK SESAR YOST M.D. [facility] Comment on above: Performed By: #### A ERC #### [facility] [address] [place] [address] Glucose Poct Glucometerson 0 10-18-2021 Commemt1 [facility] Comment on above: Result Comment: Glu2 : Will Repeat Test PERFORMED BY: [place] [phone] PATHOLOGIST MESSAGE CLERK SESAR YOST M.D. Performed By: #### G LULS #### Point of Care testing , Glucose [Mass/Vol] 451 mg/dL Off scale high [facility] Comment on above: Result Comment: [place] [facility] Glucose Reference Range is dependent on time and content of last meal. Glucose of more than 200 mg/dL in a nonstressed, ambulatory subject supports the diagnosis of Diabetes Mellitus. Performed By: #### G HAMILTONLS #### Point of Care testing , Commemt1 Glu2: Cleaned Meter [facility] Comment on above: Result Comment: PERF ORMED BY: [place] [address] PATHOLOGIST MESSAGE CLERK SESAR YOST M.D. Performed By: #### C BC, BMP #### [facility] [address] [place] [address] [place] Glucose [Mass/Vol] 258 mg/dL Normal [facility] Comment on above: Result Comment: [place] [facility] Glucose Reference Range is dependent on time and content of last meal. Glucose of more than 200 mg/dL in a nonstressed, ambulatory subject supports the diagnosis of Diabetes Mellitus. Performed By: #### C BC, BMP #### [place] [address] [place] Glucose [Mass/Vol] 193 mg/dL Normal [facility] Comment on above: Result Comment: [place] [facility] Glucose Reference Range is dependent on time and content of last meal. Glucose of more than 200 mg/dL in a nonstressed, ambulatory subject supports the diagnosis of Diabetes Mellitus. PERFORMED BY: [place] [address] PATHOLOGIST MESSAGE CLERK SESAR YOST M.D. Performed By: #### G KAYLIN #### Point of Care testing , Commemt1 Glu2: Cleaned Meter [facility] Comment on above: Result Comment: PERF ORMED BY: [place] [address] PATHOLOGIST MESSAGE CLERK SESAR YOST M.D. Performed By: #### C OVID19 FLU RSV, CEPHEID NEG #### [facility] [address] [place] [address] [place] Glucose [Mass/Vol] 231 mg/dL Normal [facility] Comment on above: Result Comment: [place] [facility] Glucose Reference Range is dependent on time and content of last meal. Glucose of more than 200 mg/dL in a nonstressed, ambulatory subject supports the diagnosis of Diabetes Mellitus. Performed By: #### C OVID19 FLU RSV, CEPHEID NEG #### [facility] [address] [place] [id number] [facility] Ray 10-18-2021 L - -------- Specimen: [id number] Received: 10/18/21 Status: SASHA León Num: [id number] Spec Type: Surgical Subm Dr: Reddy Brandt DO Tissues: A Extremity - Amputation, Non-Traumatic (RT LEG) Procedures: HARRISON Ascencio/8, Gross/Micro L5, Marychuy -------- Age/ Patient Sex Location Account Attending Physician -------- Anai Goodman 66/M 4N [id number] Reddy Brandt DO -------- SPEC NUM: [id number] RECD: 10/18/21 STATUS: SASHA LEÓN NUM: [id number] KARIME: 10/18/21 [facility] DR: Reddy Brandt DO ENTERED: 10/18/[address] [facility] [address]: BIA TYPE: Surgical DEPT: [...] sections are submitted in 8 -------- Specimen: [id number] Received: 10/18/21 Status: SASHA León Num: [id number] Spec Type: Surgical Subm Dr: Reddy Brandt DO Tissues: A Extremity - Amputation, Non-Traumatic (RT LEG) Procedures: HE Stain/8, Gross/Micro L5, Decal -------- Patient: Anai Goodman [id number] (Continued) -------- Specimen: [id number] Received: 10/18/21 (Continued) Gross Description (Continued) Signed (signature on file) Jorge Pastrana MD 10/23/21 1344 -------- Specimen: [id number] Received: 10/18/21 Status: SASHA León Num: [id number] Spec Type: Surgical Subm Dr: Reddy Brandt DO Tissues: A Extremity - Amputation, Non-Traumatic (RT LEG) Procedures: HE Stain/8, Gross/Micro L5, Decal -------- Patient: Anai Goodman [id number] (Continued) -------- Specimen: [id number] Received: 10/18/21 (Continued) Gross Description (Continued) cassettes [...] examined. The pathologist's interpretation is performed at [facility]. The microscopic findings support the above pathologic diagnosis. CPT Codes 62761, 73317 -------- -------- Specimen: [id number] Received: 10/18/21 Status: SASHA León Num: [id number] Spec Type: Surgical Subm Dr: Reddy Brandt, DO Tissues: A Extremity - Amputation, Non-Traumatic (RT LEG) Procedures: HE Stain/8, Gr (more content not included)... Normal [facility] Type and Screenon 10-18-2021 ABO and Rh group Nom (Bld) Blood group B Rh(D) negative Normal [facility] Comment on above: Result Comment: PERF ORMED BY: [facility] [address] [place] [address] PATHOLOGIST MESSAGE CLERK SESAR YOST M.D. COVID-19 Positive/NegativeOr dered By: Reddy Brandt on 10-14-2021 SARS-CoV-2 (COVID-19) N gene MEREDITH+probe Ql (Resp) Negative Negative [facility] Comment on above: Testing for SARS-CoV -2 by RT-PCR This test was developed and its performance characteristics determined by [employer] and validated at the [facility]. This test has not been FDA cleared [...] 10-06-2021 Basophils (Bld) [#/Vol] 0.0 10*3/uL 0.0-0.2 [facility] Basophils/100 WBC Auto (Bld) Ordered By: Reddy Brandt on 10-06-2021 Basophils/100 WBC (Bld) 0.6 % . [facility] Blood hemoglobin measurement (mass/volume)Ordered By: Reddy Brandt on 10-06-2021 Hemoglobin (Bld) [Mass/Vol] 13.7 g/dL 13.0-17.0 [facility] Blood leukocytes automated c ount (number/volume)Ordered By: Reddy Brandt on 10-06-2021 WBC (Bld) [#/Vol] 7.8 10*3/uL 4.5-11.0 [facility] Creatinine and Glomerular fi ltration rate.predicted panel (S/P/Bld)Ordered By: Reddy Brandt on 10-06-2021 Creatinine [Mass/Vol] 1.76 mg/dL 0.64-1.27 [facility] Eosinophils Auto (Bld) [#/Vo l]Ordered By: Reddy Brandt on 10-06-2021 Eosinophils (Bld) [#/Vol] 0.4 10*3/uL 0.0-0.45 [facility] Eosinophils/100 WBC Auto (Bl d)Ordered By: Reddy Brandt on 10-06-2021 Eosinophils/100 WBC (Bld) 4.9 % . [facility] Erythrocyte distribution wid th Auto (RBC) [Ratio]Ordered By: Reddy Brandt on 10-06-2021 Erythrocyte distribution width (RBC) [Ratio] 18.8 % 12.0-14.8 [facility] Erythrocyte sedimentation ra te by Photometric methodOrdered By: Reddy Brandt on 10-06-2021 ESR Photometric method (Bld) [Velocity] 21 mm/hr 0-19 [facility] Estimated glomerular filtrat ion rate (GFR) non- AmericanOrdered By: Reddy Brandt on 10-06-2021 GFR/1.73 sq M.predicted among non-blacks MDRD (S/P/Bld) [Vol rate/Area] 39 mL/Min [facility] Glucose mean value [Mass/vol ume] in Blood Estimated from glycated hemoglobinOrdered By: Reddy Brandt on 10-06-2021 Average glucose Estimated from glycated hemoglobin (Bld) [Mass/Vol] 163 mg/dL [facility] Hematocrit Auto (Bld) [Volum e fraction]Ordered By: Reddy Brandt on 10-06-2021 Hematocrit (Bld) [Volume fraction] 41.1 % 38.8-50.0 [facility] Hemoglobin A1c percentageOrd ered By: Reddy Brandt on 10-06-2021 HbA1c (Bld) [Mass fraction] 7.3 % 4.3-5.6 [facility] Comment on above: Increased risk for d iabetes: 5.7 - 6.4 diabetes: >6.4 glycemic control for adults with diabetes: <7.0 Laboratory - Hematology and Cell countsOrdered By: Reddy Brandt on 10-06-2021 Nucleated RBC/100 WBC (Bld) [Ratio] 0.0 % 0-0.5 [facility] Lymphocytes Auto (Bld) [#/Vo l]Ordered By: Reddy Brandt on 10-06-2021 Lymphocytes (Bld) [#/Vol] 0.8 10*3/uL 1.00-4.8 [facility] Lymphocytes/100 WBC Auto (Bl d)Ordered By: Reddy Brandt on 10-06-2021 Lymphocytes/100 WBC (Bld) 10.9 % . [facility] MCH Auto (RBC) [Entitic mass ]Ordered By: Reddy Brandt on 10-06-2021 MCH (RBC) [Entitic mass] 28.8 pg 27.5-35.2 [facility] MCHC Auto (RBC) [Mass/Vol]Or dered By: Reddy Brandt on 10-06-2021 MCHC (RBC) [Mass/Vol] 33.3 g/dL 32.5-35.6 [facility] MCV Auto (RBC) [Entitic vol] Ordered By: Reddy Brandt on 10-06-2021 MCV (RBC) [Entitic vol] 86.3 fL 83.5-101 [facility] Monocytes Auto (Bld) [#/Vol] Ordered By: Reddy Brandt on 10-06-2021 Monocytes (Bld) [#/Vol] 0.9 10*3/uL 0.0-0.8 [facility] Monocytes/100 WBC Auto (Bld) Ordered By: Reddy Brandt on 10-06-2021 Monocytes/100 WBC (Bld) 11.8 % . [facility] Neutrophils Auto (Bld) [#/Vo l]Ordered By: Reddy Brandt on 10-06-2021 Neutrophils (Bld) [#/Vol] 5.6 10*3/uL 1.8-7.7 [facility] Neutrophils/100 WBC Auto (Bl d)Ordered By: Reddy Brandt on 10-06-2021 Neutrophils/100 WBC (Bld) 71.8 % . [facility] No Panel InformationOrdered By: Reddy Brandt on 10-06-2021 Estimated GFR () 48 mL/Min [facility] Comment on above: GFR estimated refere nce range: According to KDOQI guidelines, <60 ml/min/1.73m2 is sufficient to diagnose a patient with chronic kidney disease. Pharmacy Creatinine Clearance (Chem N/A [facility] Platelet mean volume Auto (B ld) [Entitic vol]Ordered By: Reddy Brandt on 10-06-2021 Platelet mean volume (Bld) [Entitic vol] 9.1 fL 6.6-10.1 [facility] Platelets Auto (Bld) [#/Vol] Ordered By: Reddy Brandt on 10-06-2021 Platelets (Bld) [#/Vol] 131 10*3/uL 150-450 [facility] RBC Auto (Bld) [#/Vol]Ordere d By: Reddy Brandt on 10-06-2021 RBC (Bld) [#/Vol] 4.77 10*6/uL 3.90-5.60 [facility] Serum or plasma C reactive p rotein measurement (mass/volume)Ordered By: Reddy Brandt on 10-06-2021 CRP [Mass/Vol] 0.5 mg/dL 0.0-1.0 [facility] Serum or plasma chloride zofia surement (moles/volume)Ordered By: Reddy Brandt on 10-06-2021 Chloride [Moles/Vol] 93 mmol/L 95-114 [facility] Serum or plasma potassium me asurement (moles/volume)Ordered By: Reddy Brandt on 10-06-2021 Potassium [Moles/Vol] 3.8 mmol/L 3.5-5.1 [facility] Serum or plasma sodium measu rement (moles/volume)Ordered By: Reddy Brandt on 10-06-2021 Sodium [Moles/Vol] 139 mmol/L 136-146 [facility] Serum or plasma total carbon dioxide measurement (moles/volume)Ordered By: Reddy Brandt on 10-06-2021 CO2 [Moles/Vol] 31.4 mmol/L 22.0-30.0 [facility] Serum or plasma urea nitroge n measurement (mass/volume)Ordered By: Reddy Brandt on 10-06-2021 Urea nitrogen [Mass/Vol] 52 mg/dL 9- [facility] WOUND CULTUREon 09-12-2021 Bacteria identified Aer cx Nom (Unsp spec) Final report Normal [facility] Comment on above: Performed By: #### C XWND ####[facility] K[address]onm[address] [place] [address]Dr. Anjali Reagan Result 1 Mixed skin areli Normal [facility] Comment on above: Performed By: #### C XWND ####[facility] Aaqnkruifh6186 [place] [id number] Reagan CBC AUTO DIFFon 09-09-2021 BASO # 0.0 103/ul Normal 0.0-0.1 [facility] Comment on above: Performed By: #### C BC ####[facility] Fhjfnikwcf69[address] [place] [address]DrVeronica Reagan Basophils/100 WBC (Bld) 0.6 % Normal 0.2-2.0 [facility] Comment on above: Performed By: #### C BC ####[facility] Vvlnkgqdqs1435 [place] [address]DrVeronica Reagan EO # 0.3 103/ul Normal 0.0-0.7 [facility] Comment on above: Performed By: #### C BC ####[facility] Txyuvrztew6869 [place] [address]Dr. Anjali Tez Eosinophils/100 WBC (Bld) 4.1 % Normal 0.9-7.0 [facility] Comment on above: Performed By: #### C BC ####[facility] Ubuzgzknqk260[address] [place], [place] [address]Dr. Anjali Reagan Erythrocyte distribution width (RBC) [Ratio] 16.1 % Critically high 11.0-15.0 [facility] Comment on above: Performed By: #### C BC ####[facility] Sbvfdxlfln0019[address] [place], [place] [address]Dr. Anjali Reagan Hematocrit (Bld) [Volume fraction] 38.3 % Critically low 42.0-54.0 [facility] Comment on above: Performed By: #### C BC ####[facility] Sqpllapilh65[address] [place], [place] [address]Dr. Anjali Reagan Hemoglobin (Bld) [Mass/Vol] 12.0 g/dL Critically low 14.0-18.0 [facility] Comment on above: Performed By: #### C BC ####[facility] Loftirdaym7[address] [place], [place] [address]Dr. Anjali Reagan IG # 0.04 10e3/ul Critically high 0.00-0.03 [facility] Comment on above: Performed By: #### C BC ####[facility] Qnynrbedpj10[address] [place], [place] [address]Dr. Anjali Reagan IG % 0.6 % Critically high 0.0-0.5 [facility] Comment on above: Performed By: #### C BC ####[facility] Mepvckvkar9[address] [place], [place] [address]DrVeronica Reagan LYMPH # 0.9 103/ul Critically low 1.2-3.8 [facility] Comment on above: Performed By: #### C BC ####[facility] Uevsogckzk4727[address] [place], [place] [address]DrVeronica Reagan Lymphocytes/100 WBC (Bld) 12.6 % Critically low 20.5-60.0 [facility] Comment on above: Performed By: #### C BC ####[facility] Wwpkoddhgp8678 [place] [address]DrVeronica Reagan MANUAL DIFF REQ NO Normal [facility] Comment on above: Performed By: #### C BC ####[facility] Ezyxuhuxjy7027 [place] [address]DrVeronica Reagan MCH (RBC) [Entitic mass] 27.5 pg Normal 25.9-34.0 [facility] Comment on above: Performed By: #### C BC ####[facility] Frulkcztel4129[address] [place], [place] [address]DrVeronica Reagan MCHC (RBC) [Mass/Vol] 31.3 g/dL Normal 29.9-35.2 [facility] Comment on above: Performed By: #### C BC ####[facility] Kympqxeagj2569[address] [place], [place] [address]DrVeronica Reagan MCV (RBC) [Entitic vol] 87.6 fL Normal 80.0-94.0 [facility] Comment on above: Performed By: #### C BC ####[facility] Xobkhggyft7936[address] [place], [place] [address]DrVeronica Reagan MONO # 0.7 103/ul Normal 0.3-0.8 [facility] Comment on above: Performed By: #### C BC ####[facility] Oawxjpesrp9644[address] [place], [place] [address]DrVeronica Reagan Monocytes/100 WBC (Bld) 10.3 % Normal 1.7-12.0 [facility] Comment on above: Performed By: #### C BC ####[facility] Nrgmvlcfdo6185[address] [place], [place] [address]DrVeronica Reagan NEUT # 5.1 103/ul Normal 1.4-6.5 [facility] Comment on above: Performed By: #### C BC ####[facility] Bkwbldheek[address] [place], [place] [address]DrVeronica Reagan Neutrophils/100 WBC (Bld) 71.8 % Normal 43.0-75.0 [facility] Comment on above: Performed By: #### C BC ####[facility] Zzdjziwfev4365[address] [place], [place] [address]Dr. Anjali Reagan Platelet mean volume (Bld) [Entitic vol] 9.4 fL Critically low 9.5-13.5 [facility] Comment on above: Performed By: #### C BC ####[facility] Jtuxnzrxsi0819[address] [place], [place] [address]Dr. Anjali Reagan PLT 249 103/ul Normal 150-450 [facility] Comment on above: Performed By: #### C BC ####[facility] Ayftjfniqv432[address] [place], [place] [address]Dr. Anjali Reagan RBC 4.37 106/ul Critically low 4.70-6.10 [facility] Comment on above: Performed By: #### C BC ####[facility] Awcevkbvqv737[address] [place], [place] [address]Dr. Anjali Reagan WBC 7.1 103/ul Normal 4.0-11.0 [facility] Comment on above: Performed By: #### C BC ####[facility] Rxytnexylm8158[address] [place], [place] [address]Dr. Anjali Reagan CRPon 09-09-2021 CRP 1.9 mg/dL Critically high <=1.0 [facility] Comment on above: Performed By: #### C RP, CMP ####[facility] Ozugkltwaj3846[address] [place], [place] [address]Dr. nAjali Reagan GRAM STAINon 09-09-2021 COMMENTS NO ORGANISMS OBSERVED Normal [facility] Comment on above: Performed By: #### G STAIN ####[facility] Oahrarvmmx7258[address] [place], [place] [address]Dr. Anjali Tez DIPHTHEROIDS Normal [facility] Comment on above: Performed By: #### G STAIN ####[facility] Nhiubiqjbu7155[address] [place], [place] [address]Dr. Anjali Reagan EPITHELIALS Normal [facility] Comment on above: Performed By: #### G STAIN ####[facility] Lmcflfcqyt2374 [place] [phone]. Anjali Reagan FUNGAL ELEMENTS Normal [facility] Comment on above: Performed By: #### G STAIN ####[facility] Uolaqgqhyi0896 [place] [address]Dr. Anjali Reagan GRAM NEG BACILLI Normal [facility] Comment on above: Performed By: #### G STAIN ####[facility] Vrugekgczq5118 [place] [address]Dr. Anjali Reagan GRAM NEG DIPPLOCOCCI Normal [facility] Comment on above: Performed By: #### G STAIN ####[facility] Lqxzobbtyq5021 [place] [address]Dr. Anjali Reagan GRAM POS BACILLI Normal [facility] Comment on above: Performed By: #### G STAIN ####[facility] Bhtivuzrhn3665 [place] [address]Dr. Anjali Reagan GRAM POSITIVE COCCI Normal [facility] Comment on above: Performed By: #### G STAIN ####[facility] Wopqijmfxu0925 [place] [address]Dr. Anjali Reagan GRAM STAIN SOURCE Left foot lateral Normal [facility] Comment on above: Performed By: #### G STAIN ####[facility] Mquiphjokv0422 [place] [address]Dr. Anjali Reagan GS_DIPTH Normal [facility] Comment on above: Performed By: #### G STAIN ####[facility] Aaltekjtom90[address] [place], [place] [address]Dr. Anjali Reagan WBC RARE Normal [facility] Comment on above: Performed By: #### G STAIN ####[facility] Ocvukvqsek7608 [place] [address]Dr. Anjali Reagan PROF 14(COMP METB)on 022 Albumin [Mass/Vol] 3.5 g/dL Normal 3.4-5.0 [facility] Comment on above: Performed By: #### C RP, CMP ####[facility] Whalzbzild4857[address] [place], [place] [address]Dr. Anjali Reagan Albumin/Globulin [Mass ratio] 0.8 {ratio} Normal [facility] Comment on above: Performed By: #### C RP, CMP ####[facility] Skpseiario5652 [place] [address]Dr. Anjali Reagan ALP [Catalytic activity/Vol] 136 U/L Critically high 46-116 [facility] Comment on above: Performed By: #### C RP, CMP ####[facility] Roxodjzrdl82[address] [place] [address]Dr. Anjali Reagan ALT [Catalytic activity/Vol] 34 U/L Normal 16-63 [facility] Comment on above: Performed By: #### C RP, CMP ####[facility] Gqsjzlbjpx7827 [place] [address]Dr. Anjali Reagan Anion gap [Moles/Vol] 12.9 mmol/L Normal [facility] Comment on above: Performed By: #### C RP, CMP ####[facility] Hawzicaqfr5457[address] [place], [place] [address]Dr. Anjali Reagan AST [Catalytic activity/Vol] 27 U/L Normal 15-37 [facility] Comment on above: Performed By: #### C RP, CMP ####[facility] Pkmaovivot5[address] [place], [place] [address]Dr. Anjali Reagan Bilirubin [Mass/Vol] 0.4 mg/dL Normal 0.2-1.0 [facility] Comment on above: Performed By: #### C RP, CMP ####[facility] Lszkctsmtj4379 [place] [address]Dr. Anjali Reagan Calcium [Mass/Vol] 9.7 mg/dL Normal 8.5-10.1 [facility] Comment on above: Performed By: #### C RP, CMP ####[facility] Nealgwrigj1138 [place] [address]Dr. Anjali Reagan Chloride [Moles/Vol] 103 mmol/L Normal 98-107 [facility] Comment on above: Performed By: #### C RP, CMP ####[facility] Zakopvatac9[address] [place] [address]Dr. Anjali Reagan CO2 [Moles/Vol] 28.9 mmol/L Normal 21.0-32.0 [facility] Comment on above: Performed By: #### C RP, CMP ####[facility] Bnnqldquaa7474 [place] [address]Dr. Anjali Reagan Creatinine [Mass/Vol] 1.57 mg/dL Critically high 0.70-1.30 [facility] Comment on above: Performed By: #### C RP, CMP ####[facility] Yyoqfzdmsj5470 [place] [address]Dr. Anjali Reagan EGFR-AF CITIZEN OF [place] 54 mL/min/1.73m2 Critically low >=60 [facility] Comment on above: Performed By: #### C RP, CMP ####[facility] Bijbtlrjmb5525[address] [place], [place] [address]Dr. Anjali Reagan EGFR-NON AF CITIZEN OF [place] 45 mL/min/1.73m2 Critically low >=60 [facility] Comment on above: Performed By: #### C RP, CMP ####[facility] Wpoezedkaw13[address] [place], [place] [address]Dr. Anjali Reagan Globulin (S) [Mass/Vol] 4.5 g/dL Normal [facility] Comment on above: Performed By: #### C RP, CMP ####[facility] Dtrxxwaset3078 [place] [address]Dr. Anjali Reagan Glucose [Mass/Vol] 174 mg/dL Critically high 74-106 [facility] Comment on above: Performed By: #### C RP, CMP ####[facility] Kxaivkicod5036 [place] [address]Dr. Anjali Reagan Potassium [Moles/Vol] 4.8 mmol/L Normal 3.5-5.1 [facility] Comment on above: Performed By: #### C RP, CMP ####[facility] Atfzisalhm1470 [place] [address]Dr. Anjali Reagan Protein [Mass/Vol] 8.0 g/dL Normal 6.4-8.2 [facility] Comment on above: Performed By: #### C RP, CMP ####[facility] Eollamddwe3822 [place] [address]Dr. Anjali Tez Sodium [Moles/Vol] 140 mmol/L Normal 136-145 [facility] Comment on above: Performed By: #### C RP, CMP ####[facility] Aqoybfptzk0175 [place] [address]Dr. Anjali Reagan Urea nitrogen [Mass/Vol] 34.0 mg/dL Critically high 7.0-18 .0 [facility] Comment on above: Performed By: #### C RP, CMP ####[facility] Tjeqbvdiwj4046 [place] [phone]. Anjali Reagan Urea nitrogen/Creatinine [Mass ratio] 21.7 mg/mg Normal [facility] Comment on above: Performed By: #### C RP, CMP ####[facility] Gejxgcmbmn1821 [place] [address]Dr. Anjali Reagan XR FOOT RT MIN 3 VIEWSon XR FOOT RT MIN 3 VIEWS Normal [facility] XR ANKLE RT MIN 3 VIEWSon XR ANKLE RT MIN 3 VIEWS Normal [facility] CULTURE BLOODon 08-26-2021 Microscopic examination of blood, culture Culture Observations: NO GROWTH AT 5 DAYS. Normal [facility] Comment on above: Performed By: #### B LDCX2 ####[facility] Ejcouzdpjk[address] [place] [address]Dr. Biancaramona Tez Microscopic examination of blood, culture Culture Observations: NO GROWTH AT 5 DAYS. Normal [facility] Comment on above: Performed By: #### B LDCX1 ####[facility] Sxtobehkoh5947 [place] [phone]. Anjali Reagan PREALBUMINon 08-26-2021 Prealbumin [Mass/Vol] 14 mg/dL Normal - [facility] Comment on above: Performed By: #### P REALBL ####[facility] Kqcjynijjv[address] [place] [address]Dr. Anjali Tez CBC W MANUAL DIFFon 08-25-19 ANISOCYTOSIS SLIGHT Normal [facility] Comment on above: Performed By: #### C BCMAN ####[facility] Dkemxkymil1896 [place] [phone]. Yiramona Reagan ATYPICAL LYMPH # Normal [facility] Comment on above: Performed By: #### C BCMAN ####[facility] Uepshssbrm6001 [place] [address]Dr. Yiramona Reagan ATYPICAL LYMPH % Normal [facility] Comment on above: Performed By: #### C BCMAN ####[facility] Xdvpgdczkh1176 [place] [address]Dr. Yilan Reagan BAND # Normal 0.0-0.3 [facility] Comment on above: Performed By: #### C BCMAN ####[facility] Lhmuwhenno9563 [place] [address]Dr. Yilan Reagan BAND % Normal 0-5 [facility] Comment on above: Performed By: #### C BCFIONA ####[facility] Amdpqrzmol[address] [place], [place] [address]Dr. Anjali Reagan BASOM # 0.00 103/ul Normal 0.00-0.10 [facility] Comment on above: Performed By: #### C BCFIONA ####[facility] Hgxgfpvcsa8033 [place] [address]Dr. Anjali Reagan BASOM % 0.0 % Critically low 0.2-2.0 [facility] Comment on above: Performed By: #### C BCFIONA ####[facility] Chlmlgtawg5799 [place] [address]Dr. Biancalan Reagan BLAST # Normal [facility] Comment on above: Performed By: #### C BCFIONA ####[facility] Eqwtpvcfcx1395 [place] [address]Dr. Biancalan Reagan BLAST % Normal [facility] Comment on above: Performed By: #### C BCMAN ####[facility] Gfyjlqlhyo6690 [place] [address]Dr. Anjali Reagan CORRECTED WBC Normal 4.0-11.0 [facility] Comment on above: Performed By: #### C BCFIONA ####[facility] Jfdbkxyaxj35[address] [place], [place] [address]Dr. Anjali Reagan EOS # 0.34 103/ul Normal 0.00-0.70 [facility] Comment on above: Performed By: #### C CORI ####[facility] Wgxaydjcla8421 [place] [phone]. Anjali Reagan EOS% 3.0 % Normal 0.9-7.0 [facility] Comment on above: Performed By: #### C CORI ####[facility] Gvtnciezwp7537 [place] [address]Dr. Anjali Reagan HCT 36.2 % Critically low 42.0-54.0 [facility] Comment on above: Performed By: #### C CORI ####[facility] Hkzbxtcdgq7306 [place] [address]Dr. Anjali Reagan HGB 11.8 g/dl Critically low 14.0-18.0 [facility] Comment on above: Performed By: #### Uzair PERSAUD ####[facility] Zteakohgwb8246 [place] [address]Dr. Anjali Reagan LYMPHM # 1.03 103/ul Critically low 1.20-3.80 [facility] Comment on above: Performed By: #### Uzair PERSAUD ####[facility] Ezernehvub9044 [place] [address]Dr. Anjali Reagan LYMPHM% 9.0 % Critically low 20.5-60.0 [facility] Comment on above: Performed By: #### Uzair PERSAUD ####[facility] Ffvtqcduiv5667 [place] [address]Dr. Anjali Reagan MCH 28.0 pg Normal 25.9-34.0 [facility] Comment on above: Performed By: #### C CORI ####[facility] Rmkkwehttz2512 [place] [address]Dr. Anjali Reagan MCHC 32.6 g/dl Normal 29.9-35.2 [facility] Comment on above: Performed By: #### C CORI ####[facility] Opccwmihwd1601 [place] [address]Dr. Anjali Reagan MCV 85.8 fL Normal 80.0-94.0 [facility] Comment on above: Performed By: #### C CORI ####[facility] Dqvahoqdme4514 [place] [address]Dr. Anjali Reagan METAMYELOCYTE # Normal [facility] Comment on above: Performed By: #### C CORI ####[facility] Ekbopsqcfs1193 [place], [place] [address]Jb. Anjali Reagan METAMYELOCYTE % Normal [facility] Comment on above: Performed By: #### C CORI ####[facility] Zbfhlngfsk7988 [place] [address]Dr. Anjali Reagan MONOM# 1.61 103/ul Critically high 0.30-0.80 [facility] Comment on above: Performed By: #### C CORI ####[facility] Alqvkdyvpb6542 [place] [address]Dr. Anjali Reagan MONOM% 14.0 % Critically high 1.7-12.0 [facility] Comment on above: Performed By: #### C CORI ####[facility] Rhdywdscjp6335 [place] [address]Dr. Anjali Reagan MPV 8.9 fL Critically low 9.5-13.5 [facility] Comment on above: Performed By: #### C CORI ####[facility] Bywuzwkhms9414 [place] [address]Dr. Anjali Reagan MYELOCYTE # Normal [facility] Comment on above: Performed By: #### C CORI ####[facility] Metzaaxnen7550 [place] [address]Dr. Anjali Reagan MYELOCYTE % Normal [facility] Comment on above: Performed By: #### C CORI ####[facility] Bxzbbuhmvk2586 [place] [address]Dr. Anjali Reagan NRBC Normal [facility] Comment on above: Performed By: #### C CORI ####[facility] Ksxwvyyick3242 [place] [address]Dr. Biancaramona Reagan PLT 263 103/ul Normal 150-450 [facility] Comment on above: Performed By: #### C CORI ####[facility] Znhwjaghwm0875 [place], [place] [address]Nn. Anjali Tez RBC 4.22 106/ul Critically low 4.70-6.10 [facility] Comment on above: Performed By: #### C CORI ####[facility] Abtqxdufso4862 [place], [place] [address]Sr. Anjali Tez RDW 16.0 % Critically high 11.0-15.0 [facility] Comment on above: Performed By: #### C CORI ####[facility] Aurmqmealq1624 [place], [place] [address]Ez. Anjali Tez SEG # 8.51 103/ul Critically high 1.40-6.50 [facility] Comment on above: Performed By: #### C CORI ####[facility] Xxbntpjjvh5334 [place] [address]Dr. Anjali Reagan SEG % 74.0 % Normal 43.0-75.0 [facility] Comment on above: Performed By: #### C CORI ####[facility] Flbypnupty5935 [place], [place] [address]Jb. Biancaramona Tez WBC 11.5 103/ul Critically high 4.0-11.0 [facility] Comment on above: Performed By: #### Uzair PERSAUD ####[facility] Tyfdksrffh4499 [place] [address]Dr. Anjali Reagan CRPon 08-24-2021 CRP 11.6 mg/dL Critically high <=1.0 [facility] Comment on above: Performed By: #### C RP, CMP ####[facility] Kwwelibovx3407 [place], [place] [address]Vc. Anjali Reagan PROF 14(COMP METB)on 022 Albumin [Mass/Vol] 3.2 g/dL Critically low 3.4-5.0 e [facility] Comment on above: Performed By: #### C RP, CMP ####[facility] Iyqqpjxnwj6137 [place] [phone]. Anjali Reagan Albumin/Globulin [Mass ratio] 0.7 {ratio} Normal [facility] Comment on above: Performed By: #### C RP, CMP ####[facility] Ukywkdprzh1213 [place] [address]Dr. Anjali Tez ALP [Catalytic activity/Vol] 107 U/L Normal 46-116 [facility] Comment on above: Performed By: #### C RP, CMP ####[facility] Dqijoxdcuh1020 [place] [address]Dr. Anjali Reagan ALT [Catalytic activity/Vol] 57 U/L Normal 16-63 [facility] Comment on above: Performed By: #### C RP, CMP ####[facility] Zncxkdvxxy55[address] [place], [place] [address]Dr. Anjali Reagan Anion gap [Moles/Vol] 13.7 mmol/L Normal [facility] Comment on above: Performed By: #### C RP, CMP ####[facility] Tkzkmfwcty7317[address] [place], [place] [address]Dr. Anjali Reagan AST [Catalytic activity/Vol] 40 U/L Critically high 15-37 [facility] Comment on above: Performed By: #### C RP, CMP ####[facility] Bkuijbuyes5144[address] [place], [place] [address]Dr. Anjali Reagan Bilirubin [Mass/Vol] 0.6 mg/dL Normal 0.2-1.0 [facility] Comment on above: Performed By: #### C RP, CMP ####[facility] Bxmanzfnbg670[address] [place], [place] [address]Dr. Anjali Reagan Calcium [Mass/Vol] 9.7 mg/dL Normal 8.5-10.1 [facility] Comment on above: Performed By: #### C RP, CMP ####[facility] Qwgyzmmvwv95[address] [place], [place] [address]Dr. Anjali Reagan Chloride [Moles/Vol] 98 mmol/L Normal 98-107 [facility] Comment on above: Performed By: #### C RP, CMP ####[facility] Cfcoumrejx45[address] [place], [place] [address]Dr. Yilan Reagan CO2 [Moles/Vol] 30.0 mmol/L Normal 21.0-32.0 [facility] Comment on above: Performed By: #### C RP, CMP ####[facility] Wdehknwjjb6429 [place] [address]Dr. Anjali Reagan Creatinine [Mass/Vol] 1.73 mg/dL Critically high 0.70-1.30 [facility] Comment on above: Performed By: #### C RP, CMP ####[facility] Xjngjakqys67[address] [place], [place] [address]Dr. Anjali Reagan EGFR-AF CITIZEN OF [place] 49 mL/min/1.73m2 Critically low >=60 [facility] Comment on above: Performed By: #### C RP, CMP ####[facility] Sdogoqhnkn37[address] [place], [place] [address]Dr. Anjali Reagan EGFR-NON AF CITIZEN OF [place] 40 mL/min/1.73m2 Critically low >=60 [facility] Comment on above: Performed By: #### C RP, CMP ####[facility] Cgrwqdxijk30[address] [place], [place] [address]Dr. Anjali Reagan Globulin (S) [Mass/Vol] 4.7 g/dL Normal [facility] Comment on above: Performed By: #### C RP, CMP ####[facility] Eiuffvdnvq[address] [place], [place] [address]Dr. Anjali Reagan Glucose [Mass/Vol] 92 mg/dL Normal 74-106 [facility] Comment on above: Performed By: #### C RP, CMP ####[facility] Abesungqeh69[address] [place], [place] [address]Dr. Anjali Reagan Potassium [Moles/Vol] 3.7 mmol/L Normal 3.5-5.1 [facility] Comment on above: Performed By: #### C RP, CMP ####[facility] Kicilsuirw3566[address] [place], [place] [address]Dr. Anjali Reagan Protein [Mass/Vol] 7.9 g/dL Normal 6.4-8.2 [facility] Comment on above: Performed By: #### C RP, CMP ####[facility] Lmauooddtm2552 [place] [address]Dr. Anjali Reagan Sodium [Moles/Vol] 138 mmol/L Normal 136-145 [facility] Comment on above: Performed By: #### C RP, CMP ####[facility] Ftevugtnjf9[address] [place], [place] [address]Dr. Anjali Reagan Urea nitrogen [Mass/Vol] 50.0 mg/dL Critically high 7.0-18 .0 [facility] Comment on above: Performed By: #### C RP, CMP ####[facility] Yqwyprluxz0359 [place] [address]Dr. Anjali Reagan Urea nitrogen/Creatinine [Mass ratio] 28.9 mg/mg Normal [facility] Comment on above: Performed By: #### C RP, CMP ####[facility] Yyxszwammh450[address] [place], [place] [address]Dr. Anjali Reagan SED RATE [facility] 2021 SED RATE 17 mm/hr Normal <=20 [facility] Comment on above: Performed By: #### S EDR ####[facility] Itevecwasj88[address] [place], [place] [address]Dr. Anjali Reagan CBC (INCLUDES DIFF/PLT)on Basophils (Bld) [#/Vol] 0.034 10*3/uL Normal 0-200 [facility] Comment on above: Performed By: #### 6 399, 496, 718, 83701 #### [facility] [place] [address] Brick Tester: Juan Meraz MD Basophils/100 WBC (Bld) 0.3 % Normal [facility] Comment on above: Performed By: #### 6 399, 496, 718, 76847 #### [facility] [place] [address] Brick Tester: Juan Meraz MD Eosinophils (Bld) [#/Vol] 0.023 10*3/uL Normal 15-500 [facility] Comment on above: Performed By: #### 6 399, 496, 718, 81009 #### [facility] of [place] [address] Brick Tester: Juan Meraz MD Eosinophils/100 WBC (Bld) 0.2 % Normal [facility] Comment on above: Performed By: #### 6 399, 496, 718, 96651 #### [facility] of [place] [address] Brick Tester: Juan Meraz MD Erythrocyte distribution width (RBC) [Ratio] 15.6 % High 11.0-15.0 [facility] Comment on above: Performed By: #### 6 399, 496, 718, 77668 #### [facility] of [place] [address] Brick Tester: Juan Meraz MD Hematocrit (Bld) [Volume fraction] 38.9 % Normal 38.5-50.0 [facility] Comment on above: Performed By: #### 6 399, 496, 718, 99843 #### [facility] of [place] [address] Brick Tester: Juan Meraz MD Hemoglobin (Bld) [Mass/Vol] 12.7 g/dL Low 13.2-17.1 [facility] Comment on above: Performed By: #### 6 399, 496, 718, 12465 #### [facility] of [place] [address] Brick Tester: Juan Meraz MD Lymphocytes (Bld) [#/Vol] 0.531 10*3/uL Low 850-3900 [facility] Comment on above: Performed By: #### 6 399, 496, 718, 41505 #### [facility] of [place] [address] Brick Tester: Juan Meraz MD Lymphocytes/100 WBC (Bld) 4.7 % Normal [facility] Comment on above: Performed By: #### 6 399, 496, 718, 99991 #### [facility] of [address] [place] [address] Brick Tester: Juan Meraz MD MCH (RBC) [Entitic mass] 28.2 pg Normal 27.0-33.0 [facility] Comment on above: Performed By: #### 6 399, 496, 718, 35970 #### [facility] of [place] [address] Brick Tester: Juan Meraz MD MCHC (RBC) [Mass/Vol] 32.6 g/dL Normal 32.0-36.[address] [facility] Comment on above: Performed By: #### 6 399, 496, 718, 20993 #### [facility] of [place] [address] Brick Tester: Juan Meraz MD MCV (RBC) [Entitic vol] 86.4 fL Normal 80.0-100.0 [facility] Comment on above: Performed By: #### 6 399, 496, 718, 80070 #### [facility] of [place] [address] Brick Tester: Juan Meraz MD Monocytes (Bld) [#/Vol] 1.119 10*3/uL High 200-950 [facility] Comment on above: Performed By: #### 6 399, 496, 718, 71511 #### [facility] of [place] [address] Brick Tester: Juan Meraz MD Monocytes/100 WBC (Bld) 9.9 % Normal [facility] Comment on above: Performed By: #### 6 399, 496, 718, 97375 #### [facility] of [place] [address] Brick Tester: Juan Meraz MD Neutrophils (Bld) [#/Vol] 9.594 10*3/uL High 4307-8575 [facility] Comment on above: Performed By: #### 6 399, 496, 718, 39881 #### [facility] of [place] [address] [place] [address] Brick Tester: Juan Meraz MD Neutrophils/100 WBC (Bld) 84.9 % Normal [facility] Comment on above: Performed By: #### 6 399, 496, 718, 24004 #### [facility] [place] [address] Brick Tester: Juan Meraz MD Platelet mean volume (Bld) [Entitic vol] 10.1 fL Normal 7.5-12.5 [facility] Comment on above: Performed By: #### 6 399, 496, 718, 09995 #### [facility] [place] [address] Brick Tester: Juan Meraz MD Platelets (Bld) [#/Vol] 267 10*3/uL Normal 140-400 [facility] Comment on above: Performed By: #### 6 399, 496, 718, 01574 #### [facility] [place] [address] Brick Tester: Juan Meraz MD RBC (Bld) [#/Vol] 4.50 10*6/uL Normal 4.20-5.80 [facility] Comment on above: Performed By: #### 6 399, 496, 718, 08604 #### [facility] [place] [address] Brick Tester: Juan Meraz MD WBC (Bld) [#/Vol] 11.3 10*3/uL High 3.8-10.8 [facility] Comment on above: Performed By: #### 6 399, 496, 718, 42825 #### [facility] [place] [address] Brick Tester: Juan Meraz MD HEMOGLOBIN A1con 08-23-2021 HEMOGLOBIN [...] Performed By: #### 6 399, 496, 718, 10662 #### [facility] [address], [address] [place] [address] Brick Tester: Juan Meraz MD PHOSPHATE ( PHOSPHORUS)on 08-23-2021 Phosphate [Mass/Vol] 3.7 mg/dL Normal 2.5-4.5 [facility] Comment on above: Order Comment: PATIE NT UNABLE TO VOID; ADVISED TO RETURN FOR COLLECTION. Performed By: #### 6 399, 496, 718, 16312 #### [facility] [address], [address] [place] [address] Brick Tester: Juan Meraz MD PTH, INTACT WITHOUT CALCIUMo [...] Performed By: #### 6 399, 496, 718, 43607 #### [facility] [address], [address] [place], [place] [address] Brick Tester: Juan Meraz MD VITAMIN D,25-OH,TOTAL,IAon 0 08-23-2021 [...] D, (D2,D3), LC/MS/MS is recommended: order code 01793 (patients >2yrs). See Note 1 Note 1 For additional information, please refer to http://education.[employer]/faq/ZIM325 (This link is being provided for informational/ educational purposes only.) Performed By: #### 6 399, 496, 718, 09241 #### [facility] [address] [facility], [address] [place] [address] Brick Tester: Juan Meraz MD CBC W MANUAL DIFFon 07-06-19 22 ATYPICAL LYMPH # Normal [facility] Comment on above: Performed By: #### C CORI ####[facility] Kmudheeqlx30[address] [place] [address]Dr. Biancalan Reagan ATYPICAL LYMPH % Normal [facility] Comment on above: Performed By: #### C CORI ####[facility] Lgvvfapvjg6928 [place] [address]Dr. Yilan Reagan BAND # 0.1 103/ul Normal 0.0-0.3 [facility] Comment on above: Performed By: #### C SAUMYAMAN ####[facility] Shvlhfefqc4389 [place] [address]Dr. Yilan Reagan BAND % 1 % Normal 0-5 [facility] Comment on above: Performed By: #### C CORI ####[facility] Pxcpfefcbi8008 [place] [address]Dr. Yilan Eragan BASOM # 0.00 103/ul Normal 0.00-0.10 [facility] Comment on above: Performed By: #### C CORI ####[facility] Tbfkrvfldu3469 [place] [address]Dr. Biancalan Reagan BASOM % 0.0 % Critically low 0.2-2.0 [facility] Comment on above: Performed By: #### C CORI ####[facility] Vgtcahwjwz[address] [place], [place] [address]Dr. Anjali Reagan BLAST # Normal [facility] Comment on above: Performed By: #### C BCFIONA ####[facility] Wqtzympxem2830 [place] [address]Dr. Anjali Reagan BLAST % Normal [facility] Comment on above: Performed By: #### C BCFIONA ####[facility] Fmeznqqwkd0504 [place] [address]Dr. Anjali Reagan CORRECTED WBC Normal 4.0-11.0 [facility] Comment on above: Performed By: #### C CORI ####[facility] Vidoozagbg6142 [place] [address]Dr. Anjali Reagan EOS # 0.16 103/ul Normal 0.00-0.70 [facility] Comment on above: Performed By: #### C CORI ####[facility] Drmtoqadyx26[address] [place], [place] [address]Dr. Anjali Reagan EOS% 2.0 % Normal 0.9-7.0 [facility] Comment on above: Performed By: #### C CORI ####[facility] Ekvqkdjhkb9323 [place] [address]Dr. Anjali Reagan HCT 35.3 % Critically low 42.0-54.0 [facility] Comment on above: Performed By: #### C CORI ####[facility] Gmgkatdtrn8411 [place] [address]Dr. Anjali Reagan HGB 11.4 g/dl Critically low 14.0-18.0 [facility] Comment on above: Performed By: #### C BCFIONA ####[facility] Cltuggzryk9346 [place] [address]Dr. Anjali Reagan LYMPHM # 0.70 103/ul Critically low 1.20-3.80 [facility] Comment on above: Performed By: #### C BCFIONA ####[facility] Cbouadqvlz7216 [place] [address]Dr. Anjali Reagan LYMPHM% 9.0 % Critically low 20.5-60.0 [facility] Comment on above: Performed By: #### C CORI ####[facility] Pjvinjnixx2045 [place], [place] [address]Jg. Anjali Reagan MCH 27.5 pg Normal 25.9-34.0 [facility] Comment on above: Performed By: #### C CORI ####[facility] Vuecrkxmiq5592 [place], [place] [address]Sq. Anjali Reagan MCHC 32.3 g/dl Normal 29.9-35.2 [facility] Comment on above: Performed By: #### C CORI ####[facility] Vngkrpjubp7221 [place] [address]Dr. Anjali Reagan MCV 85.3 fL Normal 80.0-94.0 [facility] Comment on above: Performed By: #### C CORI ####[facility] Uzsybndjwb4652 [place] [address]Dr. Anjali Reagan METAMYELOCYTE # Normal [facility] Comment on above: Performed By: #### C CORI ####[facility] Yftshagbpg9657 [place] [address]Dr. Anjali Reagan METAMYELOCYTE % Normal [facility] Comment on above: Performed By: #### C CORI ####[facility] Qsmuwfxper4115 [place] [address]Dr. Anjali Reagan MONOM# 1.09 103/ul Critically high 0.30-0.80 [facility] Comment on above: Performed By: #### C CORI ####[facility] Liintxxtrd5430 [place] [address]Dr. Anjali Reagan MONOM% 14.0 % Critically high 1.7-12.0 [facility] Comment on above: Performed By: #### C CORI ####[facility] Koxsctdeva2535 [place] [address]Dr. Anjali Reagan MPV 9.6 fL Normal 9.5-13.5 [facility] Comment on above: Performed By: #### C CORI ####[facility] Zamavbrzmz[address] [place], [place] [address]Dr. Anjali Reagan MYELOCYTE # Normal [facility] Comment on above: Performed By: #### C CORI ####[facility] Ghwkuatfsb2849 [place] [address]Dr. Anjali Reagan MYELOCYTE % Normal [facility] Comment on above: Performed By: #### C CORI ####[facility] Gzrmhdejcw0315 [place], [place] [address]Tv. Anjali Reagan NRBC Normal [facility] Comment on above: Performed By: #### C CORI ####[facility] Igzfxnqqqn0833 [place] [address]Dr. Anjali Reagan PLT 119 103/ul Critically low 150-450 [facility] Comment on above: Performed By: #### C CORI ####[facility] Fivmaveknk2564 [place] [address]Dr. Anjali Reagan RBC 4.14 106/ul Critically low 4.70-6.10 [facility] Comment on above: Performed By: #### C CORI ####[facility] Abjecmdmcw[address] [place], [place] [address]Dr. Anjali Reagan RDW 16.1 % Critically high 11.0-15.0 [facility] Comment on above: Performed By: #### C CORI ####[facility] Cjbdzfapcf[address] [place], [place] [address]Dr. Anjali Reagan SEG # 5.77 103/ul Normal 1.40-6.50 [facility] Comment on above: Performed By: #### C CORI ####[facility] Xnyvdztfaa7033 [place] [address]Dr. Anjali Reagan SEG % 74.0 % Normal 43.0-75.0 [facility] Comment on above: Performed By: #### C CORI ####[facility] Akpdievjde823[address] [place], [place] [address]Dr. Anjali Reagan WBC 7.8 103/ul Normal 4.0-11.0 [facility] Comment on above: Performed By: #### C CORI ####[facility] Qyemcwgmmy04[address] [place], [place] [address]Dr. Anjali Reagan CRPon 07-05-2021 CRP [Mass/Vol] mg/L Critically high <=1.0 [facility] Comment on above: Performed By: #### C RP, BMP ####[facility] Brnvbmnfaz5461 [place] [address]Dr. Anjali Reagan PROF CHEM 8 (BAS METB)on Anion gap [Moles/Vol] 10.1 mmol/L Normal [facility] Comment on above: Performed By: #### C RP, BMP ####[facility] Fmcoyqleat5744 [place] [address]Dr. Anjali Reagan Calcium [Mass/Vol] 9.6 mg/dL Normal 8.5-10.1 [facility] Comment on above: Performed By: #### C RP, BMP ####[facility] Azmvccxrho1695 [place] [address]Dr. Anjali Reagan Chloride [Moles/Vol] 100 mmol/L Normal 98-107 [facility] Comment on above: Performed By: #### C RP, BMP ####[facility] Hjsbpowzmh2221 [place] [address]Dr. Anjali Reagan CO2 [Moles/Vol] 30.4 mmol/L Critically high 22.0-30.0 [facility] Comment on above: Performed By: #### C RP, BMP ####[facility] Qteheckwpu079[address] [place], [place] [address]Dr. Anjali Reagan Creatinine [Mass/Vol] 1.49 mg/dL Critically high 0.66-1.25 [facility] Comment on above: Performed By: #### C RP, BMP ####[facility] Uueahzgnbf0162 [place] [address]Dr. Anjali Reagan EGFR-AF CITIZEN OF [place] 58 mL/min/1.73m2 Critically low >=60 [facility] Comment on above: Performed By: #### C RP, BMP ####[facility] Lqimvkawyo67[address] [place], [place] [address]Dr. Anjali Reagan EGFR-NON AF CITIZEN OF [place] 48 mL/min/1.73m2 Critically low >=60 [facility] Comment on above: Performed By: #### C RP, BMP ####[facility] Vyckpshgcu5665 [place] [address]Dr. Anjali Reagan Glucose [Mass/Vol] 191 mg/dL Critically high 74-106 [facility] Comment on above: Performed By: #### C RP, BMP ####[facility] Pqxafsaovt0970 [place] [address]Dr. Biancaramona Reagan Potassium [Moles/Vol] 4.5 mmol/L Normal 3.4-5.0 [facility] Comment on above: Performed By: #### C RP, BMP ####[facility] Bfffnrvmbe8626 [place] [address]Dr. Biancaramona Reagan Sodium [Moles/Vol] 136 mmol/L Critically low 137-145 [facility] Comment on above: Performed By: #### C RP, BMP ####[facility] Iqidmjvcde0493 [place] [address]Dr. Anjali Reagan Urea nitrogen [Mass/Vol] 33.0 mg/dL Critically high 7.0-18 .0 [facility] Comment on above: Performed By: #### C RP, BMP ####[facility] Emxtbpxosq2287 [place] [address]Dr. Biancaramona Tez Urea nitrogen/Creatinine [Mass ratio] 22.1 mg/mg Normal [facility] Comment on above: Performed By: #### C RP, BMP ####[facility] Cmlpsjrwic5224 [place] [address]Dr. Biancaramona Tez SED RATE CARTHAGEERGRENon 2021 SED RATE 26 mm/hr Critically high <=20 [facility] Comment on above: Performed By: #### S EDR ####[facility] Ddbqzlfcps46[address] [place], [place] [address]Dr. Biancaramona Reagan XR ANKLE RT MIN 3 VIEWSon XR ANKLE RT MIN 3 VIEWS Normal [facility] CT ANKLE RT WO CONon 022 CT ANKLE RT WO CON Normal [facility] CULTURE OTHERon 05-19-2021 CULTURE OTHER Normal [facility] Comment on above: Performed By: #### O THCX ####[facility] Rvqhvlkhtg6692 [place] [address]Dr. Biancaramona Tez CULTURE ANAEROBICon 05-16-19 CULTURE ANAEROBIC Specimen Comments: RIGHT FOOT ABSCESS Culture Observations: NO GROWTH OF ANAEROBES AT 72 HOURS. Normal [facility] Comment on above: Performed By: #### A NACX ####[facility] Cyklsjklbk8902 [place] [address]Dr. Anjali Reagan GRAM STAINon 05-16-2021 DIPHTHEROIDS Normal [facility] Comment on above: Performed By: #### G STAIN ####[facility] Msssabcuxn7[address] [place], [place] [address]Dr. Anjali Reagan EPITHELIALS Normal [facility] Comment on above: Performed By: #### G STAIN ####[facility] Lljjpbfmbh65[address] [place], [place] [address]Dr. Anjali Reagan FUNGAL ELEMENTS Normal [facility] Comment on above: Performed By: #### G STAIN ####[facility] Njjvphqijj[address] [place], [place] [address]Dr. Anjali Reagan GRAM NEG BACILLI MANY Normal [facility] Comment on above: Performed By: #### G STAIN ####[facility] Obnzqgratp08[address] [place], [place] [address]Dr. Anjali Reagan GRAM NEG DIPPLOCOCCI Normal [facility] Comment on above: Performed By: #### G STAIN ####[facility] Cntncrnogu7513 [place] [address]Dr. Anjali Reagan GRAM POS BACILLI Normal [facility] Comment on above: Performed By: #### G STAIN ####[facility] Gkztnqiugn34[address] [place], [place] [address]Dr. Anjali Reagan GRAM POSITIVE COCCI Normal [facility] Comment on above: Performed By: #### G STAIN ####[facility] Tgpoemvocv1152 [place] [address]Dr. Anjali Reagan GRAM STAIN SOURCE RIGHT FOOT Normal [facility] Comment on above: Performed By: #### G STAIN ####[facility] Kmpfczyvfz[address] [place], [place] [address]Dr. Anjali Tez GS_DIPTH Normal [facility] Comment on above: Performed By: #### G STAIN ####[facility] Haxwosfuuz3918 [place], [place] [address]Lo. Anjali Reagan WBC MANY Normal [facility] Comment on above: Performed By: #### G STAIN ####[facility] Hduausckzw9706 [place] [address]Dr. Anjali Reagan XR ANKLE RT MIN 3 VIEWSon XR ANKLE RT MIN 3 VIEWS Normal [facility] COMPREHENSIVE METABOLIC PANE Ray 04-16-2021 Albumin [Mass/Vol] 4.6 g/dL Normal 3.6-5.1 [facility] Comment on above: Performed By: #### 7 600, 496, 63431 #### [facility] [place] [address] Brick Tester: Juan Meraz MD Albumin/Globulin [Mass ratio] 1.7 {ratio} Normal 1.0-2.5 [facility] Comment on above: Performed By: #### 7 600, 496, 00609 #### [facility] [place] [address] Brick Tester: Juan Meraz MD ALP [Catalytic activity/Vol] 119 U/L Normal 35-144 [facility] Comment on above: Performed By: #### 7 600, 496, 57260 #### [facility] [place] [address] Brick Tester: Juan Meraz MD ALT [Catalytic activity/Vol] 19 U/L Normal 9-46 [facility] Comment on above: Performed By: #### 7 600, 496, 88483 #### [facility] [place] [address] Brick Tester: Juan Meraz MD AST [Catalytic activity/Vol] 20 U/L Normal 10-35 [facility] Comment on above: Performed By: #### 7 600, 496, 40614 #### [facility] [place] [address] [facility] [address] Brick Tester: Juan Meraz MD Bilirubin [Mass/Vol] 0.6 mg/dL Normal 0.2-1.2 [facility] Comment on above: Performed By: #### 7 600, 496, 43633 #### [facility] [address], [address] [place] [address] Brick Tester: Juan Meraz MD Calcium [Mass/Vol] 9.9 mg/dL Normal 8.6-10.3 [facility] Comment on above: Performed By: #### 7 600, 496, 07758 #### [facility] [place] [address] Brick Tester: Juan Meraz MD Chloride [Moles/Vol] 102 mmol/L Normal 98-110 [facility] Comment on above: Performed By: #### 7 600, 496, 67171 #### [facility] [place] [address] Brick Tester: Juan Meraz MD CO2 [Moles/Vol] 28 mmol/L Normal 20-32 [facility] Comment on above: Performed By: #### 7 600, 496, 77882 #### [facility] [place] [address] Brick Tester: Juan Meraz MD Creatinine [Mass/Vol] 1.59 mg/dL High 0.70-1.[address] [facility] Comment on above: Result Comment: For patients >49 years of age, the reference limit for Creatinine is approximately 13% higher for people identified as -[place]ian. Performed By: #### 7 600, 496, 06946 #### [facility] [place] [address] Brick Tester: Juan Meraz MD eGFR NON-AFR. CITIZEN OF [place] 46 mL/min/1.73m2 Low > OR = 60 [facility] Comment on above: Performed By: #### 7 600, 496, 39618 #### [facility] [address] [place] [address] Brick Tester: Juan Meraz MD GFR/1.73 sq M.predicted among blacks MDRD (S/P/Bld) [Vol rate/Area] 53 mL/min/{1.73_m2} Low > OR = 60 [facility] Comment on above: Performed By: #### 7 600, 496, 36099 #### [facility] [place] [address] Brick Tester: Juan Meraz MD Globulin (S) [Mass/Vol] 2.7 g/dL Normal 1.9-3.7 [facility] Comment on above: Performed By: #### 7 600, 496, 76518 #### [facility] [place] [address] Brick Tester: Juan Meraz MD Glucose [Mass/Vol] 176 mg/dL High 65-139 [facility] Comment on above: Result Comment: Non-fasting reference interval For someone without known diabetes, a glucose value >125 mg/dL indicates that they may have diabetes and this should be confirmed with a follow-up test. Performed By: #### 7 600, 496, 18538 #### [facility] [place] [address] Brick Tester: Juan Meraz MD Potassium [Moles/Vol] 4.2 mmol/L Normal 3.5-5.[address] [facility] Comment on above: Performed By: #### 7 600, 496, 15389 #### [facility] [place] [address] Brick Tester: Juan Meraz MD Protein [Mass/Vol] 7.3 g/dL Normal 6.1-8.1 [facility] Comment on above: Performed By: #### 7 600, 496, 87994 #### [facility] [place] [address] Brick Tester: Juan Meraz MD Sodium [Moles/Vol] 138 mmol/L Normal 135-146 [facility] Comment on above: Performed By: #### 7 600, 496, 36788 #### [facility] [address], [address] [place] [address] Brick Tester: Juan Meraz MD Urea nitrogen [Mass/Vol] 48 mg/dL High 7-25 [facility] Comment on above: Performed By: #### 7 600, 496, 43880 #### [facility] [address], [address] [place] [address] Brick Tester: Juan Meraz MD Urea nitrogen/Creatinine [Mass ratio] 30 mg/mg High 6-22 [facility] Comment on above: Performed By: #### 7 600, 496, 60428 #### [facility] of [address], [address] [place] [address] Brick Tester: Juan Meraz MD HEMOGLOBIN A1con 04-16-2021 HEMOGLOBIN [...] 1 0165, 496, 905 #### [facility] [address], [address] [place] [address] Brick Tester: Juan Meraz MD LIPID PANEL, STANDARDon 04-02 Cholesterol [Mass/Vol] 108 mg/dL Normal <200 [facility] Comment on above: Order Comment: FASTI NG:NO FASTING: NO Performed By: #### 7 600, 496, 70798 #### [facility] [address], [address] [place] [address] Brick Tester: Juan Meraz MD Cholesterol in HDL [Mass/Vol] 47 mg/dL Normal > OR = 40 [facility] Comment on above: Order Comment: FASTI NG:NO FASTING: NO Performed By: #### 7 600, 496, 09070 #### [facility] [place] [address] Brick Tester: Juan Meraz MD Cholesterol in LDL [Mass/Vol] [...] LDL-C. Camden BAH et al. TABITHA. 2013;310(19): 8902-6385 (http://[email or web address].NextGreatPlace/faq/HWT876) Performed By: #### 7 600, 496, 90836 #### [facility] [address], [address] [place] [address] Brick Tester: Juan Meraz MD Cholesterol.total/Choles terol in HDL [Mass ratio] 2.3 {ratio} Normal <5.0 [facility] Comment on above: Order Comment: FASTI NG:NO FASTING: NO Performed By: #### 7 600, 496, 15189 #### [facility] [place] [address] Brick Tester: Juan Meraz MD NON HDL CHOLESTEROL 61 mg/dL (calc) Normal <130 [facility] Comment on above: Order Comment: FASTI NG:NO FASTING: NO Result Comment: For patients with diabetes plus 1 major ASCVD risk factor, treating to a non-HDL-C goal of <100 mg/dL (LDL-C of <70 mg/dL) is considered a therapeutic option. Performed By: #### 7 600, 496, [id number] #### [facility] [address], [address] [place] [address] Brick Tester: Juan Meraz MD Triglyceride [Mass/Vol] 102 mg/dL Normal <150 [facility] Comment on above: Order Comment: FASTI NG:NO FASTING: NO Performed By: #### 7 600, 496, 73790 #### [facility] [address], [address] [place] [address] Brick Tester: Juan Meraz MD CT ANKLE RT WO CONon 022 CT ANKLE RT WO CON Normal [facility] XR ANKLE RT MIN 3 VIEWSon XR ANKLE RT MIN 3 VIEWS Normal T [facility] ACID FAST SMEAR AND CXon Acid Fast Culture Negative Normal The [facility] Comment on above: Result Comment: No a rj fast bacilli isolated after 6 weeks. Performed By: #### A FB ####[facility] Jzuujonylj7172 [place] [address]Dr. Biancalan Reagan Acid Fast Smear Negative Normal [facility] Comment on above: Performed By: #### A FB ####[facility] Pnjnpfokpi7[address] [place], [place] [address]Dr. Biancalan [employer] Specimen Processing Direct Inoculation [facility] Comment on above: Performed By: #### A FB ####[facility] Kpckimhqyc0654[address] [place], [place] [address]Dr. Yilan Reagan ACID FAST SMEAR AND CXon Acid Fast Culture Negative Normal [facility] Comment on above: Result Comment: No a rj fast bacilli isolated after 6 weeks. Performed By: #### A FB ####[facility] Tgsnrvwxdh6119 [place] [address]Dr. Yilan Reagan Acid Fast Smear Negative Normal [facility] Comment on above: Performed By: #### A FB ####[facility] Qqxwplekxc0817[address] [place], [place] [address]Dr. Biancalan [employer] Specimen Processing Tissue Grinding [facility] Comment on above: Performed By: #### A FB ####[facility] Wtwkfjcmlp958[address] [place], [place] [address]Dr. Biancalan [employer] Specimen Processing Direct Inoculation Normal [facility] Comment on above: Performed By: #### A FB ####[facility] Ncoevtoscb4079[address] [place], [place] [address]Dr. Anjali Reagan FUNGAL CULTUREon 03-15-2021 Fungus (Mycology) Culture Final report Normal [facility] Comment on above: Performed By: #### C XFUN ####[facility] Xhxdjdjaex[address] [place], [place] [address]Dr. Anjali Reagan Fungus Stain Final report Normal [facility] Comment on above: Performed By: #### C XFUN ####[facility] Crsvdseggf5444[address] [place], [place] [address]Dr. Anjali Reagan Result 1 Comment Normal [facility] Comment on above: Result Comment: MIRIAN/ Calcofluor preparation: no fungus observed. Performed By: #### C XFUN ####[facility] Ajlzvgeyca5186[address] [place], [place] [address]Dr. Anjali Reagan Result Comment: No y east or mold isolated after 4 weeks. FUNGAL CULTUREon 03-09-2021 Fungus (Mycology) Culture Final report [facility] Comment on above: Performed By: #### C XFUN ####[facility] Hzpmxcsjgl1775[address] [place], [place] [address]Dr. Anjali Reagan Fungus Stain Final report Normal [facility] Comment on above: Performed By: #### C XFUN ####[facility] Jonwplbulv7965[address] [place], [place] [address]Dr. Anjali Reagan Result 1 Comment Normal [facility] Comment on above: Result Comment: MIRIAN/ Calcofluor preparation: no fungus observed. Performed By: #### C XFUN ####[facility] Vcrhdbjgld3565[address] [place], [place] [address]Dr. Anjali Reagan Result Comment: No y east or mold isolated after 4 weeks. XR ANKLE RT MIN 3 VIEWSon XR ANKLE RT MIN 3 VIEWS Normal T he [facility] Otolaryngology Office/Clinic Noteon 02-28-2021 Otolaryngology Office/Clinic [...] time. They were unable to travel to [place] as he required another right ankle surgery. [...] Dr. Freed. Previous pathology by physician in [place] about 1 year ago. PMHx of multiple [...] postauricular m (more content not included)... Normal [facility] CBC W MANUAL DIFFon 02-13-20 21 ATYPICAL LYMPH # Normal [facility] Comment on above: Performed By: #### C CORI ####[facility] Mdkrtccubh[address] [place] [address]Dr. Anjali Reagan ATYPICAL LYMPH % Normal [facility] Comment on above: Performed By: #### C CORI ####[facility] Xgrwzuzxyg4969[address] [place], [place] [address]Dr. Anjali Reagan BAND # 0.3 103/ul Normal 0.0-0.3 [facility] Comment on above: Performed By: #### C CORI ####[facility] Vzyjpljzuz70[address] [place], [place] [address]Dr. Anjali Reagan BAND % 4 % Normal 0-5 [facility] Comment on above: Performed By: #### C CORI ####[facility] Gupgtufwil3935[address] [place], [place] [address]Dr. Anjali Reagan BASOM # 0.00 103/ul Normal 0.00-0.10 [facility] Comment on above: Performed By: #### C CORI ####[facility] Twijckypbi[address] [place], [place] [address]Dr. Anjali Reagan BASOM % 0.0 % Critically low 0.2-2.0 [facility] Comment on above: Performed By: #### C CORI ####[facility] Vabcjypert[address] [place], [place] [address]Dr. Anjali Reagan BLAST # Normal [facility] Comment on above: Performed By: #### C CORI ####[facility] Bbgdwatkub3532[address] [place], [place] [address]Dr. Biancalan Reagan BLAST % Normal [facility] Comment on above: Performed By: #### C CORI ####[facility] Fwwpmxwgrb6829[address] [place], [place] [address]Dr. Yilan Reagan CORRECTED WBC Normal 4.0-11.0 The [facility] Comment on above: Performed By: #### C BCMAN ####[facility] Cqxnohbcuv1803 [place] [address]Dr. Anjali Reagan EOS # 0.28 103/ul Normal 0.00-0.70 [facility] Comment on above: Performed By: #### C BCMAN ####[facility] Nmfgmniqrw4580 [place] [address]Dr. Anjali Reagan EOS% 4.0 % Normal 0.9-7.0 [facility] Comment on above: Performed By: #### C BCMAN ####[facility] Cxvgrziyrp8209 [place] [address]Dr. Anjali Reagan HCT 28.5 % Critically low 42.0-54.0 [facility] Comment on above: Performed By: #### C BCFIONA ####[facility] Slqqtvkxsh2530 [place] [address]Dr. Anjali Reagan HGB 8.6 g/dl Critically low 14.0-18.0 [facility] Comment on above: Performed By: #### C BCFIONA ####[facility] Wtaelgtmlf0761 [place] [address]Dr. Anjali Reagan HYPOCHROMASIA 3+ Normal The [facility] Comment on above: Performed By: #### C BCFIONA ####[facility] Dydjlgntvv4383 [place] [address]Dr. Anjali Reagan LYMPHM # 0.57 103/ul Critically low 1.20-3.80 [facility] Comment on above: Performed By: #### C BCFIONA ####[facility] Khtcjhwkiz4707 [place] [address]Dr. Anjali Reagan LYMPHM% 8.0 % Critically low 20.5-60.0 [facility] Comment on above: Performed By: #### C BCMAN ####[facility] Qbjghfvewb6132 [place] [address]Dr. Anjali Reagan MCH 25.4 pg Critically low 25.9-34.0 [facility] Comment on above: Performed By: #### C CORI ####[facility] Yceptzgsbl2492 [place] [address]Dr. Anjali Reagan MCHC 30.2 g/dl Normal 29.9-35.2 [facility] Comment on above: Performed By: #### C CORI ####[facility] Rsivjsavuu3609 [place] [address]Dr. Anjali Reagan MCV 84.1 fL Normal 80.0-94.0 [facility] Comment on above: Performed By: #### C BCFIONA ####[facility] Bxevnjelnh5282 [place] [address]Dr. Anjali Reagna METAMYELOCYTE # Normal [facility] Comment on above: Performed By: #### C CORI ####[facility] Uwuoxmtwjc2177[address] [place], [place] [address]Dr. Anjali Reagan METAMYELOCYTE % Normal [facility] Comment on above: Performed By: #### C CORI ####[facility] Tuhkrlwzga[address] [place], [place] [address]Dr. Anjali Reagan MICROCYTOSIS 2+ Normal [facility] Comment on above: Performed By: #### C CORI ####[facility] Ilxfetfmdx1429[address] [place], [place] [address]Dr. Anjali Reagan MONOM# 0.14 103/ul Critically low 0.30-0.80 [facility] Comment on above: Performed By: #### C CORI ####[facility] Ghgalrmide1401[address] [place], [place] [address]Dr. Anjali Reagan MONOM% 2.0 % Normal 1.7-12.0 [facility] Comment on above: Performed By: #### C CORI ####[facility] Rzmjjyxjrm1118[address] [place], [place] [address]Dr. Anjali Reagan MPV 9.3 fL Critically low 9.5-13.5 [facility] Comment on above: Performed By: #### C CORI ####[facility] Spcnihftyd3965[address] [place], [place] [address]Dr. Anjali Reagan MYELOCYTE # Normal [facility] Comment on above: Performed By: #### C CORI ####[facility] Iezpyvkxfm1855 [place] [address]Dr. Anjali Reagan MYELOCYTE % Normal [facility] Comment on above: Performed By: #### C CORI ####[facility] Eouogakqfi5934 [place] [address]Dr. Anjali Reagan NRBC 1 Normal [facility] Comment on above: Performed By: #### C CORI ####[facility] Uomieisobv6155 [place] [address]Dr. Anjali Reagan PLT 186 103/ul Normal 150-450 [facility] Comment on above: Performed By: #### C CORI ####[facility] Nkfbegxjkg5259 [place] [address]Dr. Anjali Reagan RBC 3.39 106/ul Critically low 4.70-6.10 [facility] Comment on above: Performed By: #### C CORI ####[facility] Wodikjuksq2212 [place] [address]Dr. Anjali Reagan RDW 18.8 % Critically high 11.0-15.0 [facility] Comment on above: Performed By: #### C CORI ####[facility] Gzbfbtxxly6607 [place] [address]Dr. Anjali Reagan SEG # 5.82 103/ul Normal 1.40-6.50 [facility] Comment on above: Performed By: #### C CORI ####[facility] Mwnxgmqcna9424 [place] [address]Dr. Anjali Reagan SEG % 82.0 % Critically high 43.0-75.0 [facility] Comment on above: Performed By: #### C CORI ####[facility] Xrldmnwnma[address] [place], [place] [address]Dr. Anjali Reagan WBC 7.1 103/ul Normal 4.0-11.0 [facility] Comment on above: Performed By: #### C CORI ####[facility] Tzsguibyju2349[address] [place], [place] [address]Dr. Anjali Reagan POINT OF CARE GLUCOSEon 11-1 3-2021 Glucose [Mass/Vol] 175 mg/dL Critically high 74-106 [facility] Comment on above: Performed By: #### P OCGLUC ####[facility] Sewqslclse8405 [place] [address]Dr. Anjali Reagan PROF 14(COMP METB)on 02-12- 021 Albumin [Mass/Vol] 2.4 g/dL Critically low 3.5-5.0 [facility] Comment on above: Performed By: #### C MP ####[facility] Nobowhbpuh2461 [place] [address]Dr. Anjali Reagan Albumin/Globulin [Mass ratio] 0.6 {ratio} Normal [facility] Comment on above: Performed By: #### C MP ####[facility] Tsanlxfyty2259 [place] [address]Dr. Anjali eRagan ALP [Catalytic activity/Vol] 93 U/L Normal 38-126 [facility] Comment on above: Performed By: #### C MP ####[facility] Vuuidnrrld[address] [place], [place] [address]Dr. Anjali Reagan ALT [Catalytic activity/Vol] 18 U/L Critically low 21-72 [facility] Comment on above: Performed By: #### C MP ####[facility] Ciuaftvels1579 [place] [address]Dr. Anjali Reagan Anion gap [Moles/Vol] 12.5 mmol/L Normal [facility] Comment on above: Performed By: #### C MP ####[facility] Jobmbtlkad3316 [place] [address]Dr. Anjali Reagan AST [Catalytic activity/Vol] 30 U/L Normal 17-59 [facility] Comment on above: Performed By: #### C MP ####[facility] Tjaxkmjrtg2880 [place] [address]Dr. Anjali Reagan Bilirubin [Mass/Vol] 0.5 mg/dL Normal 0.2-1.3 [facility] Comment on above: Performed By: #### C MP ####[facility] Bqdodjgfpc106[address] [place], [place] [address]Dr. Anjali Reagan Calcium [Mass/Vol] 8.5 mg/dL Normal 8.4-10.2 [facility] Comment on above: Performed By: #### C MP ####[facility] Rsasqdwpxo9387 [place] [address]Dr. Anjali Reagan Chloride [Moles/Vol] 103 mmol/L Normal 98-107 [facility] Comment on above: Performed By: #### C MP ####[facility] Tixhybjhpw4942[address] [place], [place] [address]Dr. Anjali Reagan CO2 [Moles/Vol] 25.8 mmol/L Normal 22.0-30.0 [facility] Comment on above: Performed By: #### C MP ####[facility] Hcqnhmwmfq3525[address] [place], [place] [address]Dr. Anjali Tez Creatinine [Mass/Vol] 1.09 mg/dL Normal 0.66-1.25 [facility] Comment on above: Performed By: #### C MP ####[facility] Ksmqutpjap4154[address] [place], [place] [address]Dr. Anjali Tez EGFR-AF CITIZEN OF [place] >60 Normal >=60 [facility] Comment on above: Performed By: #### C MP ####[facility] Ymhbajktpt6839[address] [place], [place] [address]Dr. Anjali Tez EGFR-NON AF CITIZEN OF [place] >60 Normal >=60 [facility] Comment on above: Performed By: #### C MP ####[facility] Bbrfjshgyk490[address] [place], [place] [address]Dr. Anjali Tez Globulin (S) [Mass/Vol] 3.7 g/dL Normal [facility] Comment on above: Performed By: #### C MP ####[facility] Nziyfrrozp0422[address] [place], [place] [address]Dr. Biancaramona Tez Glucose [Mass/Vol] 165 mg/dL Critically high 74-106 [facility] Comment on above: Performed By: #### C MP ####[facility] Rpvttllblh1736[address] [place], [place] [address]Dr. Anjali Reagan Potassium [Moles/Vol] 4.3 mmol/L Normal 3.4-5.0 [facility] Comment on above: Performed By: #### C MP ####[facility] Luueyurzsc9694[address] [place], [place] [address]Dr. Anjali Reagan Protein [Mass/Vol] 6.1 g/dL Normal 6.1-8.2 [facility] Comment on above: Performed By: #### C MP ####[facility] Qdflpkgxyh254[address] [place], [place] [address]Dr. Anjali Tez Sodium [Moles/Vol] 137 mmol/L Normal 137-145 [facility] Comment on above: Performed By: #### C MP ####[facility] Vbplkoeueq1933[address] [place], [place] [address]Dr. Anjali Tez Urea nitrogen [Mass/Vol] 24.0 mg/dL Critically high 9.0-20 .0 [facility] Comment on above: Performed By: #### C MP ####[facility] Fheegjqprf462[address] [place], [place] [address]Dr. Anjali Tez Urea nitrogen/Creatinine [Mass ratio] 22.0 mg/mg Normal [facility] Comment on above: Performed By: #### C MP ####[facility] Asapetfivs1592[address] [place], [place] [address]Dr. Anjali Tez ALBUMINon 02-11-2021 Albumin [Mass/Vol] 2.8 g/dL Critically low 3.5-5.0 [facility] Comment on above: Performed By: #### P REALB, ALB ####[facility] Hwcymwemcc7633[address] [place], [place] [address]Dr. Anjali Tez CBC AUTO DIFFon 02-11-2021 BASO # 0.0 103/ul Normal 0.0-0.1 [facility] Comment on above: Performed By: #### C BC ####[facility] Wgflznjfhj5404[address] [place], [place] [address]Dr. Biancaramona Reagan Basophils/100 WBC (Bld) 0.5 % Normal 0.2-2.0 [facility] Comment on above: Performed By: #### C BC ####[facility] Nniqkwkclw5960 [place] [address]Dr. Anjali Reagan EO # 0.5 103/ul Normal 0.0-0.7 [facility] Comment on above: Performed By: #### C BC ####[facility] Svhbtrorkr9155 [place] [address]Dr. Anjali Reagan Eosinophils/100 WBC (Bld) 7.4 % Critically high 0.9-7.0 [facility] Comment on above: Performed By: #### C BC ####[facility] Rzmnkgtetc9935 [place] [address]Dr. Anjali Reagan Erythrocyte distribution width (RBC) [Ratio] 18.7 % Critically high 11.0-15.0 [facility] Comment on above: Performed By: #### C BC ####[facility] Ipszphtjac0592[address] [place], [place] [address]Dr. Anjali Reagan Hematocrit (Bld) [Volume fraction] 30.7 % Critically low 42.0-54.0 [facility] Comment on above: Performed By: #### C BC ####[facility] Ljzmjvajdu5443 [place] [address]Dr. Anjali Reagan Hemoglobin (Bld) [Mass/Vol] 9.5 g/dL Critically low 14.0-18.0 [facility] Comment on above: Performed By: #### C BC ####[facility] Isikrbmgdj0271 [place] [address]Dr. Anjali Reagan IG # 0.05 10e3/ul Critically high 0.00-0.03 [facility] Comment on above: Performed By: #### C BC ####[facility] Jhglpnejst9194 [place] [address]Dr. Anjali Reagan IG % 0.8 % Critically high 0.0-0.5 [facility] Comment on above: Performed By: #### C BC ####[facility] Pasrkrwvqk3997 [place] [address]Dr. Anjali Reagan LYMPH # 0.6 103/ul Critically low 1.2-3.8 [facility] Comment on above: Performed By: #### C BC ####[facility] Rzrcytqqjn3544 [place] [address]Dr. Biancaramona Reagan Lymphocytes/100 WBC (Bld) 8.5 % Critically low 20.5-60.0 [facility] Comment on above: Performed By: #### C BC ####[facility] Boodjkivfo1758 [place] [address]Dr. Anjali Reagan MANUAL DIFF REQ NO Normal [facility] Comment on above: Performed By: #### C BC ####[facility] Jkkhbqrppb5226[address] [place], [place] [address]Dr. Anjali Reagan MCH (RBC) [Entitic mass] 25.3 pg Critically low 25.9-34 .0 [facility] Comment on above: Performed By: #### C BC ####[facility] Nanuncgnyt7929[address] [place], [place] [address]Dr. Anjali Reagan MCHC (RBC) [Mass/Vol] 30.9 g/dL Normal 29.9-35.2 [facility] Comment on above: Performed By: #### C BC ####[facility] Ffawfhmukl35[address] [place], [place] [address]Dr. Anjali Reagan MCV (RBC) [Entitic vol] 81.6 fL Normal 80.0-94.0 [facility] Comment on above: Performed By: #### C BC ####[facility] Apgkmykujd3518[address] [place], [place] [address]Dr. Anjali Reagan MONO # 0.8 103/ul Normal 0.3-0.8 [facility] Comment on above: Performed By: #### C BC ####[facility] Pwktvnxarq4148[address] [place], [place] [address]Dr. Anjali Reagan Monocytes/100 WBC (Bld) 12.2 % Critically high 1.7-12. 0 [facility] Comment on above: Performed By: #### C BC ####[facility] Upmcqrseud8166[address] [place], [place] [address]Dr. Anjali Reagan NEUT # 4.6 103/ul Normal 1.4-6.5 [facility] Comment on above: Performed By: #### C BC ####[facility] Wjsesqapyb7621 [place] [address]Dr. Anjali Reagan Neutrophils/100 WBC (Bld) 70.6 % Normal 43.0-75.0 [facility] Comment on above: Performed By: #### C BC ####[facility] Lnbfvhjavk2152 [place] [address]Dr. Anjali Reagan Platelet mean volume (Bld) [Entitic vol] 9.6 fL Normal 9.5-13.5 [facility] Comment on above: Performed By: #### C BC ####[facility] Avhkczttrb1747 [place] [address]Dr. Anjali Reagan PLT 205 103/ul Normal 150-450 [facility] Comment on above: Performed By: #### C BC ####[facility] Rtdqtzwecn6839 [place] [address]Dr. Anjali Reagan RBC 3.76 106/ul Critically low 4.70-6.10 [facility] Comment on above: Performed By: #### C BC ####[facility] Oqvbvfpoul2976 [place] [address]Dr. Anjali Reagan WBC 6.5 103/ul Normal 4.0-11.0 [facility] Comment on above: Performed By: #### C BC ####[facility] Vtgxxlyulk10[address] [place], [place] [address]Dr. Anjali Reagan CULTURE ANAEROBICon 02-12-20 21 CULTURE ANAEROBIC Specimen Comments: RIGHT ANKLE JOINT Culture Observations: NO GROWTH AT 72 HRS Normal [facility] Comment on above: Performed By: #### A NACX ####[facility] Nwckmohugz7962 [place] [address]Dr. Anjali Reagan CULTURE OTHERon 02-11-2021 CULTURE OTHER Specimen Comments: RIGHT ANKLE JOINT Culture Observations: NO GROWTH AT 72 HRS Normal [facility] Comment on above: Performed By: #### O THCX ####[facility] Yybijeuhog8344 [place] [address]Dr. Anjali Reagan GRAM STAINon 02-11-2021 COMMENTS NO ORGANISMS OBSERVED Normal [facility] Comment on above: Performed By: #### G STAIN ####[facility] Ngyqukwzdq3581 [place] [address]Dr. Anjali Reagan DIPHTHEROIDS Normal [facility] Comment on above: Performed By: #### G STAIN ####[facility] Dchffaefbs9026 [place] [address]Dr. Anjali Reagan EPITHELIALS Normal [facility] Comment on above: Performed By: #### G STAIN ####[facility] Tlybfzpydf8465 [place] [address]Dr. Anjali Reagan FUNGAL ELEMENTS Normal [facility] Comment on above: Performed By: #### G STAIN ####[facility] Ddhdshmglv4[address] [place], [place] [address]Dr. Anjali Reagan GRAM NEG BACILLI Normal [facility] Comment on above: Performed By: #### G STAIN ####[facility] Svtxhmppvq0158[address] [place], [place] [address]Dr. Anjali Reagan GRAM NEG DIPPLOCOCCI Normal [facility] Comment on above: Performed By: #### G STAIN ####[facility] Gdrkkpdmwh003[address] [place], [place] [address]Dr. Anjali Reagan GRAM POS BACILLI Normal [facility] Comment on above: Performed By: #### G STAIN ####[facility] Lcrnepbbun7154[address] [place], [place] [address]Dr. Anjali Reagan GRAM POSITIVE COCCI Normal [facility] Comment on above: Performed By: #### G STAIN ####[facility] Kjlihcxudk55[address] [place], [place] [address]Dr. Anjali Reagan GRAM STAIN SOURCE Right ankle joint Normal [facility] Comment on above: Performed By: #### G STAIN ####[facility] Zbfwqjwsqe1409 [place] [address]Dr. Anjali Reagan GS_DIPTH Normal [facility] Comment on above: Performed By: #### G STAIN ####[facility] Pjkwtnauka7434 [place] [address]Dr. Anjali Reagan WBC FEW Normal [facility] Comment on above: Performed By: #### G STAIN ####[facility] Ddlckmluiy2492 [place] [address]Dr. Anjali Reagan POINT OF CARE GLUCOSEon 01-31 Glucose [Mass/Vol] 196 mg/dL Critically high 74-106 [facility] Comment on above: Performed By: #### P OCGLUC ####[facility] Fbrvddvstn7223 [place] [address]Dr. Anjali Reagan Glucose [Mass/Vol] 176 mg/dL Critically high 74-106 [facility] Comment on above: Performed By: #### P OCGLUC ####[facility] Nxmdejcjic0745 [place] [address]Dr. Anjali Reagan PREALBUMINon 02-11-2021 Prealbumin [Mass/Vol] 17.8 mg/dL Normal 17.6-36.0 [facility] Comment on above: Performed By: #### P REALB, ALB ####[facility] Tfbxdsaahj5869[address] [place], [place] [address]Dr. Anjali Reagan PROF 14(COMP METB)on 021 Albumin [Mass/Vol] 2.6 g/dL Critically low 3.5-5.0 [facility] Comment on above: Performed By: #### B MP, CMP ####[facility] Yzlakmqbwy7[address] [place], [place] [address]Dr. Anjali Reagan Albumin/Globulin [Mass ratio] 0.6 {ratio} Normal [facility] [facility] Comment on above: Performed By: #### B MP, CMP ####[facility] Fgjindsikt[address] [place], [place] [address]Dr. Anjali Reagan ALP [Catalytic activity/Vol] 104 U/L Normal 38-126 [facility] Comment on above: Performed By: #### B MP, CMP ####[facility] Vhdxethypc6[address] [place], [place] [address]Dr. Anjali Reagan ALT [Catalytic activity/Vol] 17 U/L Critically low 21-72 [facility] Comment on above: Performed By: #### B MP, CMP ####[facility] Ohdtopubwr1701[address] [place], [place] [address]Dr. Anjali Reagan AST [Catalytic activity/Vol] 26 U/L Normal 17-59 [facility] Comment on above: Performed By: #### B MP, CMP ####[facility] Rqscyawboo[address] [place], [place] [address]Dr. Anjali Reagan Bilirubin [Mass/Vol] 0.5 mg/dL Normal 0.2-1.3 [facility] Comment on above: Performed By: #### B MP, CMP ####[facility] Fbnydjrsfl5612[address] [place], [place] [address]Dr. Anjali Reagan Globulin (S) [Mass/Vol] 4.1 g/dL Normal T [facility] Comment on above: Performed By: #### B MP, CMP ####[facility] Bhdyukjxqy237[address] [place], [place] [address]Dr. Anjali Reagan Protein [Mass/Vol] 6.7 g/dL Normal 6.1-8.2 [facility] Comment on above: Performed By: #### B MP, CMP ####[facility] Pufplhdcua6859[address] [place], [place] [address]Dr. Anjali Reagan PROF CHEM 8 (BAS METB)on Anion gap [Moles/Vol] 11.3 mmol/L Normal [facility] Comment on above: Performed By: #### B MP, CMP ####[facility] Utexdpuedv1889[address] [place], [place] [address]Dr. Anjali Reagan Calcium [Mass/Vol] 9.0 mg/dL Normal 8.4-10.2 [facility] Comment on above: Performed By: #### B MP, CMP ####[facility] Euvuzcwczv1639[address] [place], [place] [address]Dr. Anjali Reagan Chloride [Moles/Vol] 101 mmol/L Normal 98-107 [facility] Comment on above: Performed By: #### B MP, CMP ####[facility] Vrypejqayn0153[address] [place], [place] [address]Dr. Anjali Reagan CO2 [Moles/Vol] 28.0 mmol/L Normal 22.0-30.0 [facility] Comment on above: Performed By: #### B MP, CMP ####[facility] Vgsregtbnt0607 [place] [address]Dr. Anjali Reagan Creatinine [Mass/Vol] 1.23 mg/dL Normal 0.66-1.25 [facility] Comment on above: Performed By: #### B MP, CMP ####[facility] Aeyvrlavwb1352 [place] [address]Dr. Anjali Reagan EGFR-AF CITIZEN OF [place] >60 Normal >=60 [facility] Comment on above: Performed By: #### B MP, CMP ####[facility] Czfufrmfgy4167 [place] [address]Dr. Anjali Reagan EGFR-NON AF CITIZEN OF [place] 59 mL/min/1.73m2 Critically low >=60 [facility] Comment on above: Performed By: #### B MP, CMP ####[facility] Xptclpbqdv8522 [place] [address]Dr. Anjali Reagan Glucose [Mass/Vol] 109 mg/dL Critically high 74-106 [facility] Comment on above: Performed By: #### B MP, CMP ####[facility] Oljnfsohog6263 [place] [address]Dr. Anjali Reagan Potassium [Moles/Vol] 3.9 mmol/L Normal 3.4-5.0 [facility] Comment on above: Performed By: #### B MP, CMP ####[facility] Uedxiyooce646[address] [place], [place] [address]Dr. Anjali Reagan Sodium [Moles/Vol] 136 mmol/L Critically low 137-145 [facility] Comment on above: Performed By: #### B MP, CMP ####[facility] Ucyuryjmpx0291 [place] [address]Dr. Anjali Reagan Urea nitrogen [Mass/Vol] 32.0 mg/dL Critically high 9.0-20 .0 [facility] Comment on above: Performed By: #### B MP, CMP ####[facility] Tignlcwpgz7434[address] [place], [place] [address]Dr. Biancaramona Reagan Urea nitrogen/Creatinine [Mass ratio] 26.0 mg/mg Normal [facility] Comment on above: Performed By: #### B MP, CMP ####[facility] Xtcsfvpwnj2721 [place] [address]Dr. Anjali Reagan VANCOMYCIN TROUGHon 02-12-20 VANCOMYCIN TROUGH 9.8 ug/ml Normal 5.0-20.0 [facility] Comment on above: Performed By: #### V ANCT ####[facility] Vhrjucxgex5708 [place] [address]Dr. Anjali Reagan XR ANKLE RT 2Von 02-11-2021 XR ANKLE RT 2V Normal [facility] XR FOOT RT MIN 3 VIEWSon XR FOOT RT MIN 3 VIEWS Normal [facility] CBC AUTO DIFFon 02-10-2021 BASO # 0.0 103/ul Normal 0.0-0.1 [facility] Comment on above: Performed By: #### C BC ####[facility] Blvwbhmytn6874 [place] [address]Dr. Anjali Reagan Basophils/100 WBC (Bld) 0.3 % Normal 0.2-2.0 [facility] Comment on above: Performed By: #### C BC ####[facility] Rbkvtbjkkn7609 [place] [address]Dr. Anjali Reagan EO # 0.2 103/ul Normal 0.0-0.7 [facility] Comment on above: Performed By: #### C BC ####[facility] Rqroulwlsl4682 [place] [address]Dr. Anjali Reagan Eosinophils/100 WBC (Bld) 2.7 % Normal 0.9-7.0 [facility] Comment on above: Performed By: #### C BC ####[facility] Dtetbsjxyf2945 [place] [address]DrVeronica Reagan Erythrocyte distribution width (RBC) [Ratio] 18.8 % Critically high 11.0-15.0 [facility] Comment on above: Performed By: #### C BC ####[facility] Eoxmzfkitl9990 [place] [address]DrVeronica Reagan Hematocrit (Bld) [Volume fraction] 31.6 % Critically low 42.0-54.0 [facility] Comment on above: Performed By: #### C BC ####[facility] Jgrvshdtwg8382 [place] [phone] Anjali Tez Hemoglobin (Bld) [Mass/Vol] 9.6 g/dL Critically low 14.0-18.0 [facility] Comment on above: Performed By: #### C BC ####[facility] Xgitoprfvj5970 [place] [address]DrVeronica Valenzuelaramona Tez IG # 0.04 10e3/ul Critically high 0.00-0.03 [facility] Comment on above: Performed By: #### C BC ####[facility] Eerkxehfps8053 [place] [address]DrVeronica Reagan IG % 0.6 % Critically high 0.0-0.5 [facility] Comment on above: Performed By: #### C BC ####[facility] Innkudbhtj0580 [place] [address]DrVeronica Reagan LYMPH # 0.9 103/ul Critically low 1.2-3.8 [facility] Comment on above: Performed By: #### C BC ####[facility] Civjaaqxtq0805 [place] [address]DrVeronica Reagan Lymphocytes/100 WBC (Bld) 12.2 % Critically low 20.5-60.0 [facility] Comment on above: Performed By: #### C BC ####[facility] Nnkiegrxnh5962 [place] [address]DrVeronica Reagan MANUAL DIFF REQ NO Normal [facility] Comment on above: Performed By: #### C BC ####[facility] Jjmpfmglvv9857 [place] [phone] Reagan MCH (RBC) [Entitic mass] 24.7 pg Critically low 25.9-34 .0 [facility] Comment on above: Performed By: #### C BC ####[facility] Hjwyqlhsmd8946 [place] [phone] Reagan MCHC (RBC) [Mass/Vol] 30.4 g/dL Normal 29.9-35.2 [facility] Comment on above: Performed By: #### C BC ####[facility] Agdyvgerlx9668 [place] [address]DrVeronica Anjali Reagan MCV (RBC) [Entitic vol] 81.4 fL Normal 80.0-94.0 [facility] Comment on above: Performed By: #### C BC ####[facility] Nlmxbnoois6351 [place] [address]DrVeronica Valenzuelaramona Tez MONO # 0.7 103/ul Normal 0.3-0.8 [facility] Comment on above: Performed By: #### C BC ####[facility] Blqxdwkjrp6066 [place] [address]DrVeronica Reagan Monocytes/100 WBC (Bld) 9.9 % Normal 1.7-12.0 [facility] Comment on above: Performed By: #### C BC ####[facility] Xelzdnngnk23[address] [place], [place] [address]Dr. Biancaramona Tez NEUT # 5.3 103/ul Normal 1.4-6.5 [facility] Comment on above: Performed By: #### C BC ####[facility] Zfqtorigjb838[address] [place], [place] [address]DrVeronica Biancaramona Reagan Neutrophils/100 WBC (Bld) 74.3 % Normal 43.0-75.0 [facility] Comment on above: Performed By: #### C BC ####[facility] Ctluxxhlnl4088 [place] [address]DrVeronica Reagan Platelet mean volume (Bld) [Entitic vol] 9.6 fL Normal 9.5-13.5 [facility] Comment on above: Performed By: #### C BC ####[facility] Oqnoqiohqw1015 [place] [address]DrVeronica Reagan PLT 218 103/ul Normal 150-450 [facility] Comment on above: Performed By: #### C BC ####[facility] Nkgdhzrogt5216 [place] [phone] Reagan RBC 3.88 106/ul Critically low 4.70-6.10 [facility] Comment on above: Performed By: #### C BC ####[facility] Tewlbksjkz8365 [place] [address]Dr. Anjali Reagan WBC 7.1 103/ul Normal 4.0-11.0 [facility] Comment on above: Performed By: #### C BC ####[facility] Alqlmxtaso7560 [place] [address]Dr. Anjali Reagan POINT OF CARE GLUCOSEon 01-31 Glucose [Mass/Vol] 219 mg/dL Critically high 74-106 [facility] Comment on above: Performed By: #### P OCGLUC ####[facility] Ftiwlrbkvj7201 [place] [address]Dr. Anjali Reagan Glucose [Mass/Vol] 136 mg/dL Critically high 74-106 [facility] Comment on above: Performed By: #### P OCGLUC ####[facility] Rbprfpxrtl1036 [place] [address]Dr. Anjali Reagan Glucose [Mass/Vol] 119 mg/dL Critically high 74-106 [facility] Comment on above: Performed By: #### P OCGLUC ####[facility] Itczjezlpu6816 [place] [address]DrVeronica Reagan PROF 14(COMP METB)on 021 Albumin [Mass/Vol] 2.8 g/dL Critically low 3.5-5.0 [facility] Comment on above: Performed By: #### C ALEA, BMP ####[facility] Rtosrpglqo6667 [place] [address]Dr. Anjali Reagan Albumin/Globulin [Mass ratio] 0.7 {ratio} Normal [facility] Comment on above: Performed By: #### C ALEA, BMP ####[facility] Gsilytlqxy6746 [place] [address]Dr. Anjali Reagan ALP [Catalytic activity/Vol] 109 U/L Normal 38-126 [facility] Comment on above: Performed By: #### C ALEA, BMP ####[facility] Wjzojgdvud5909 [place] [address]Dr. Anjali Reagan ALT [Catalytic activity/Vol] 23 U/L Normal 21-72 [facility] Comment on above: Performed By: #### C MP, BMP ####[facility] Laciipykfc4774[address] [place], [place] [address]Dr. Anjali Reagan AST [Catalytic activity/Vol] 24 U/L Normal 17-59 [facility] Comment on above: Performed By: #### C MP, BMP ####[facility] Xcqankynvc552316 [address] [place], [place] [address]Dr. Anjali Reagan Bilirubin [Mass/Vol] 0.4 mg/dL Normal 0.2-1.3 [facility] Comment on above: Performed By: #### C ALEA, BMP ####[facility] Vxzfsybvig501516 [address] [place], [place] [address]Dr. Anjali Reagan Globulin (S) [Mass/Vol] 4.1 g/dL Normal T [facility] Comment on above: Performed By: #### C ALEA, BMP ####[facility] Gcbkkqlaim957[address] [place], [place] [address]Dr. Anjali Reagan Protein [Mass/Vol] 6.9 g/dL Normal 6.1-8.2 [facility] Comment on above: Performed By: #### C MP, BMP ####[facility] Uvfxbpugyj812416 [address] [place], [place] [address]Dr. Anjali Reagan PROF CHEM 8 (BAS METB)on Anion gap [Moles/Vol] 13.0 mmol/L Normal [facility] Comment on above: Performed By: #### C MP, BMP ####[facility] Tqvwljpumk9812[address] [place], [place] [address]Dr. Anjali Reagan Calcium [Mass/Vol] 9.4 mg/dL Normal 8.4-10.2 [facility] Comment on above: Performed By: #### C MP, BMP ####[facility] Cxkreqqwlk316916 [address] [place], [place] [address]Dr. Anjali Reagan Chloride [Moles/Vol] 104 mmol/L Normal 98-107 [facility] Comment on above: Performed By: #### C MP, BMP ####[facility] Ueypsufazp5483 [place] [address]Dr. Anjali Reagan CO2 [Moles/Vol] 27.7 mmol/L Normal 22.0-30.0 [facility] Comment on above: Performed By: #### C MP, BMP ####[facility] Cdlgapimwv1671 [place] [address]Dr. Anjali Reagan Creatinine [Mass/Vol] 1.19 mg/dL Normal 0.66-1.25 [facility] Comment on above: Performed By: #### C MP, BMP ####[facility] Wgvfhqealy2465 [place] [address]Dr. Anjali Reagan EGFR-AF CITIZEN [place] >60 Normal >=60 [facility] Comment on above: Performed By: #### C ALEA, BMP ####[facility] Jxbxsjtuki9623[address] [place], [place] [address]Dr. Anjali Reagan EGFR-NON AF CITIZEN OF [place] >60 Normal >=60 [facility] Comment on above: Performed By: #### C ALEA, BMP ####[facility] Lsnzkrgkoi5813 [place] [address]Dr. Anjali Reagan Glucose [Mass/Vol] 81 mg/dL Normal 74-106 [facility] Comment on above: Performed By: #### C ALEA, BMP ####[facility] Gdzoxigynx08[address] [place], [place] [address]Dr. Anjali Reagan Potassium [Moles/Vol] 4.1 mmol/L Normal 3.4-5.0 [facility] Comment on above: Performed By: #### C MP, BMP ####[facility] Gjvvyeemup0212 [place] [address]Dr. Anjali Reagan Sodium [Moles/Vol] 141 mmol/L Normal 137-145 [facility] Comment on above: Performed By: #### C MP, BMP ####[facility] Rwdupcqauu934716 [address] [place], [place] [address]Dr. Anjali Reagan Urea nitrogen [Mass/Vol] 41.0 mg/dL Critically high 9.0-20 .0 [facility] Comment on above: Performed By: #### C MP, BMP ####[facility] Kzhkrridai4462 [place] [address]Dr. Anjali Reagan Urea nitrogen/Creatinine [Mass ratio] 34.4 mg/mg Normal [facility] Comment on above: Performed By: #### C ALEA, BMP ####[facility] Xoprrgksgs1160 [place] [address]Dr. Anjali Reagan CBC W MANUAL DIFFon 02-10-20 21 ANISOCYTOSIS SLIGHT Normal [facility] Comment on above: Performed By: #### C BCMAN ####[facility] Svmrrxhuqj8027 [place] [address]Dr. Anjali Reagan ATYPICAL LYMPH # Normal [facility] Comment on above: Performed By: #### C CORI ####[facility] Ljlsulqquz9273[address] [place], [place] [address]Dr. Anjali Reagan ATYPICAL LYMPH % Normal [facility] Comment on above: Performed By: #### C CORI ####[facility] Pqawptobqa1682[address] [place], [place] [address]Dr. Yilan Reagan BAND # Normal 0.0-0.3 [facility] Comment on above: Performed By: #### C CORI ####[facility] Izoinuqzmz46[address] [place], [place] [address]Dr. Yilan Reagan BAND % Normal 0-5 [facility] Comment on above: Performed By: #### C BCFIONA ####[facility] Vprjurjzxz946[address] [place], [place] [address]Dr. Anjali Reagan BASOM # 0.00 103/ul Normal 0.00-0.10 [facility] Comment on above: Performed By: #### C SAUMYAMAN ####[facility] Wswshlqlxe1895[address] [place], [place] [address]Dr. Anjali Reagan BASOM % 0.0 % Critically low 0.2-2.0 [facility] Comment on above: Performed By: #### C BCFIONA ####[facility] Utyalzcqyt032[address] [place], [place] [address]Dr. Yilan Reagan BLAST # Normal [facility] Comment on above: Performed By: #### C CORI ####[facility] Iteqnhiaah1341 [place] [address]Dr. Anjali Reagan BLAST % Normal [facility] Comment on above: Performed By: #### C CORI ####[facility] Ftbvdodncq3805 [place] [address]Dr. Anjali Reagan CORRECTED WBC Normal 4.0-11.0 [facility] Comment on above: Performed By: #### C CORI ####[facility] Lbmbcjiaxb0126 [place] [address]Dr. Anjali Reagan EOS # 0.00 103/ul Normal 0.00-0.70 [facility] Comment on above: Performed By: #### C CORI ####[facility] Boufwgzkyw1182 [place] [address]Dr. Anjali Reagan EOS% 0.0 % Critically low 0.9-7.0 [facility] Comment on above: Performed By: #### C CORI ####[facility] Eizpbmehhp5323 [place] [address]Dr. Anjali Reagan HCT 31.1 % Critically low 42.0-54.0 [facility] Comment on above: Performed By: #### C CORI ####[facility] Eyrknubiic4979 [place] [address]Dr. Anjali Reagan HGB 9.6 g/dl Critically low 14.0-18.0 [facility] Comment on above: Performed By: #### C CORI ####[facility] Zrxcxukxnk0042 [place] [address]Dr. Anjali Reagan LYMPHM # 0.73 103/ul Critically low 1.20-3.80 [facility] Comment on above: Performed By: #### C CORI ####[facility] Crviuydqcu2109 [place] [address]Dr. Anjali Reagan LYMPHM% 7.0 % Critically low 20.5-60.0 [facility] Comment on above: Performed By: #### C CORI ####[facility] Aoymusljnv69[address] [place], [place] [address]Dr. Anjali Reagan MCH 25.1 pg Critically low 25.9-34.0 [facility] Comment on above: Performed By: #### C CORI ####[facility] Miyvjdqyyc1576 [place] [address]Dr. Anjali Reagan MCHC 30.9 g/dl Normal 29.9-35.2 [facility] Comment on above: Performed By: #### C CORI ####[facility] Htmnxurjji0853 [place] [address]Dr. Anjali Reagan MCV 81.4 fL Normal 80.0-94.0 [facility] Comment on above: Performed By: #### C CORI ####[facility] Jbubjlxnuk0551 [place] [address]Dr. Anjali Reagan METAMYELOCYTE # Normal [facility] Comment on above: Performed By: #### C CORI ####[facility] Egspytyupz3641 [place] [address]Dr. Anjali Reagan METAMYELOCYTE % Normal [facility] Comment on above: Performed By: #### C CORI ####[facility] Ifjbaccjuu2538 [place] [address]Dr. Anjali Reagan MONOM# 0.31 103/ul Normal 0.30-0.80 [facility] Comment on above: Performed By: #### C CORI ####[facility] Jpguzafqpu9119 [place] [address]Dr. Anjali Reagan MONOM% 3.0 % Normal 1.7-12.0 [facility] Comment on above: Performed By: #### C CORI ####[facility] Lddaztrxjs3962 [place] [address]Dr. Anjali Reagan MPV 9.9 fL Normal 9.5-13.5 [facility] Comment on above: Performed By: #### C CORI ####[facility] Fvviswscdw8713 [place] [address]Dr. Anjali Reagan MYELOCYTE # Normal [facility] Comment on above: Performed By: #### C CORI ####[facility] Mfpwsjjpoa1357 [place] [address]Dr. Anjali Reagan MYELOCYTE % Normal [facility] Comment on above: Performed By: #### C CORI ####[facility] Odhfpmpdsk2351 [place] [address]Dr. Anjali Reagan NRBC Normal [facility] Comment on above: Performed By: #### C CORI ####[facility] Wzhqmbmxdr3539 [place] [address]Dr. Anjali Reagan OVALOCYTES SLIGHT Normal [facility] Comment on above: Performed By: #### C CORI ####[facility] Rtzfczmhut4697 [place] [address]Dr. Anjali Reagan PLT 211 103/ul Normal 150-450 [facility] Comment on above: Performed By: #### C CORI ####[facility] Idptcqzpkq9355 [place] [address]Dr. Anjali Reagan POIKILOCYTOSIS SLIGHT Normal [facility] Comment on above: Performed By: #### C CORI ####[facility] Iudgkrhwyx20[address] [place], [place] [address]Dr. Anjali Reagan RBC 3.82 106/ul Critically low 4.70-6.10 [facility] Comment on above: Performed By: #### C CORI ####[facility] Tjuyiempnl7314 [place] [address]Dr. Anjali Reagan RDW 18.4 % Critically high 11.0-15.0 [facility] Comment on above: Performed By: #### C CORI ####[facility] Gnvmsuaiuy0520 [place] [address]Dr. Anjali Reagan SEG # 9.36 103/ul Critically high 1.40-6.50 [facility] Comment on above: Performed By: #### C CORI ####[facility] Liffslclim4791 [place] [address]Dr. Anjali Reagan SEG % 90.0 % Critically high 43.0-75.0 [facility] Comment on above: Performed By: #### C CORI ####[facility] Rsfopjvikd6422 [place] [address]Dr. Anjali Reagan WBC 10.4 103/ul Normal 4.0-11.0 [facility] Comment on above: Performed By: #### C BCMAN ####[facility] Gukunbtlgf0460 [place] [address]Dr. Anjali Reagan HEP B SURFACE ANTIGEN SCREEN on 02-09-2021 HBsAg Screen Negative Normal Negative [facility] Comment on above: Performed By: #### H BSANS ####[facility] Pkyhumyruq6318[address] [place], [place] [address]Dr. Anjali Reagan HEPATITIS C ANTIBODYon 02-09 Hep C Virus Ab <0.1 Normal 0.0-0.9 [facility] Comment on above: Result Comment: Nega tive: < 0.8 Indeterminate: 0.8 - 0.9 Positive: > 0.9 . The CDC recommends that a positive HCV antibody result be followed up with a HCV Nucleic Acid Amplification test (548714). Performed By: #### H CV ####[facility] Ssepfdqlnp7706[address] [place], [place] [address]Dr. Anjali Reagan HIV 1 AND 2 WITH REFLEXon HIV Screen 4th Generation wRfx Non-Reactive Normal Non Reactive [facility] Comment on above: Performed By: #### H IV12 ####[facility] Ewjrylroaq3092 [place] [address]Dr. Anjali Reagan POINT OF CARE GLUCOSEon 01-31 Glucose [Mass/Vol] 170 mg/dL Critically high 74-106 [facility] Comment on above: Performed By: #### P OCGLUC ####[facility] Vbuxdmgbvs7872 [place] [address]Dr. Anjali Reagan Glucose [Mass/Vol] 265 mg/dL Critically high 74-106 [facility] Comment on above: Performed By: #### P OCGLUC ####[facility] Afxthzzgak4932[address] [place], [place] [address]Dr. Anjali Reagan Glucose [Mass/Vol] 319 mg/dL Critically high 74-106 [facility] Comment on above: Performed By: #### P OCGLUC ####[facility] Tjfufweqqj0625 [place] [address]Dr. Anjali Reagan PROF 14(COMP METB)on 021 Albumin [Mass/Vol] 2.8 g/dL Critically low 3.5-5.0 [facility] Comment on above: Performed By: #### C MP ####[facility] Ywepzvvxrz6526 [place] [address]Dr. Anjali Reagan Albumin/Globulin [Mass ratio] 0.7 {ratio} Normal [facility] Comment on above: Performed By: #### C MP ####[facility] Swhgaexyio1559[address] [place], [place] [address]Dr. Anjali Reagan ALP [Catalytic activity/Vol] 117 U/L Normal 38-126 [facility] Comment on above: Performed By: #### C MP ####[facility] Jizvsdmcxj6099[address] [place], [place] [address]Dr. Anjali Reagan ALT [Catalytic activity/Vol] 21 U/L Normal 21-72 [facility] Comment on above: Performed By: #### C MP ####[facility] Xnhchhyyqu2517[address] [place], [place] [address]Dr. Anjali Reagan Anion gap [Moles/Vol] 13.0 mmol/L Normal [facility] Comment on above: Performed By: #### C MP ####[facility] Ginozmmgda0264[address] [place], [place] [address]Dr. Anjali Reagan AST [Catalytic activity/Vol] 21 U/L Normal 17-59 [facility] Comment on above: Performed By: #### C MP ####[facility] Rmpxcplrbq6927[address] [place], [place] [address]Dr. Anjali Reagan Bilirubin [Mass/Vol] 0.5 mg/dL Normal 0.2-1.3 [facility] Comment on above: Performed By: #### C MP ####[facility] Gcvwztlsjm8232[address] [place], [place] [address]Dr. Anjali Reagan Calcium [Mass/Vol] 9.3 mg/dL Normal 8.4-10.2 [facility] Comment on above: Performed By: #### C MP ####[facility] Wwrjdschop8881 [place] [address]Dr. Anjali Reagan Chloride [Moles/Vol] 100 mmol/L Normal 98-107 [facility] Comment on above: Performed By: #### C MP ####[facility] Inrekzsfjv0729 [place] [address]Dr. Anjali Reagan CO2 [Moles/Vol] 27.5 mmol/L Normal 22.0-30.0 [facility] Comment on above: Performed By: #### C MP ####[facility] Fznlluvecm5434[address] [place], [place] [address]Dr. Anjali Reagan Creatinine [Mass/Vol] 1.49 mg/dL Critically high 0.66-1.25 [facility] Comment on above: Performed By: #### C MP ####[facility] Ajnllalpao1055[address] [place], [place] [address]Dr. Anjali Reagan EGFR-AF CITIZEN OF [place] 58 mL/min/1.73m2 Critically low >=60 [facility] Comment on above: Performed By: #### C MP ####[facility] Pdofammpko[address] [place], [place] [address]Dr. Anjali Reagan EGFR-NON AF CITIZEN OF [place] 48 mL/min/1.73m2 Critically low >=60 [facility] Comment on above: Performed By: #### C MP ####[facility] Eamcdkafyh26[address] [place], [place] [address]Dr. Anjali Reagan Globulin (S) [Mass/Vol] 4.2 g/dL Normal [facility] Comment on above: Performed By: #### C MP ####[facility] Aadekkzpez1499[address] [place], [place] [address]Dr. Anjali Reagan Glucose [Mass/Vol] 276 mg/dL Critically high 74-106 [facility] Comment on above: Performed By: #### C MP ####[facility] Telzeupdfz2979[address] [place], [place] [address]Dr. Anjali Reagan Potassium [Moles/Vol] 4.5 mmol/L Normal 3.4-5.0 [facility] Comment on above: Performed By: #### C MP ####[facility] Jxqykhvkmo8563 [place] [address]Dr. Biancaramona Reagan Protein [Mass/Vol] 7.0 g/dL Normal 6.1-8.2 [facility] Comment on above: Performed By: #### C MP ####[facility] Nlzbfeloua1965 [place] [address]Dr. Biancaramona Reagan Sodium [Moles/Vol] 136 mmol/L Critically low 137-145 [facility] Comment on above: Performed By: #### C MP ####[facility] Gsxjohqxdd8182 [place] [address]Dr. Anjali Reagan Urea nitrogen [Mass/Vol] 42.0 mg/dL Critically high 9.0-20 .0 [facility] Comment on above: Performed By: #### C MP ####[facility] Yiyfcgpgws6287[address] [place], [place] [address]Dr. Anjali Reagan Urea nitrogen/Creatinine [Mass ratio] 28.2 mg/mg Normal [facility] Comment on above: Performed By: #### C MP ####[facility] Iiggdbsmrw7810 [place] [address]Dr. Anjali Reagan RPR QUANTon 02-09-2021 Rapid Plasma Reagin, Quant Non-Reactive Normal NonRea<1:1 [facility] Comment on above: Performed By: #### R PRQ ####[facility] Svkkbciqkf4[address] [place], [place] [address]Dr. Anjali Reagan XR ANKLE RT 2Von 02-09-2021 XR ANKLE RT 2V Normal [facility] XR TIB_FIB RT 2Von XR TIB_FIB RT 2V Normal [facility] CRPon 02-08-2021 CRP 3.2 mg/dL Critically high <=1.0 [facility] Comment on above: Performed By: #### C RP ####[facility] Hsydpilhxm24[address] [place], [place] [address]Dr. Anjali Reagan CULTURE ANAEROBICon 02-09-20 21 CULTURE ANAEROBIC Specimen Comments: RIGHT FOOT IRRIGATION SWAB Culture Observations: NO GROWTH AT 72 HRS Normal [facility] Comment on above: Performed By: #### A NACX ####[facility] Kuxquckkeq1556 [place], [place] [address]Mq. Yilan Reagan CULTURE ANAEROBIC Specimen Comments: RIGHT LEG REAMINGS Culture Observations: NO GROWTH OF ANAEROBES AT 72 HOURS. [facility] Comment on above: Performed By: #### A NACX ####[facility] Amhsovpmft6367 [place], [place] [address]Oe. Yilan Reagan CULTURE ANAEROBIC Culture Observations : NO GROWTH AT 72 HRS [facility] Comment on above: Performed By: #### A NACX ####[facility] Lmuhamhtgr[address] [place] [address]Ok. Yilan Reagan CULTURE ANAEROBIC Specimen Comments: RIGHT TIBIA BONE Culture Observations: NO GROWTH AT 72 HRS [facility] Comment on above: Performed By: #### A NACX ####[facility] Apgsvegtdm125[address] [place], [place] [address]Dr. Yilan Reagan CULTURE ANAEROBIC Specimen Comments: RIGHT CALCANEOUS BONE Culture Observations: NO GROWTH OF ANAEROBES AT 72 HOURS. [facility] Comment on above: Performed By: #### A NACX ####[facility] Csiwjzkmpo[address] [place], [place] [address]Dr. Yilan Reagan CULTURE ANAEROBIC Specimen Comments: RIGHT ANKLE ABSCESS Culture Observations: NO GROWTH AT 72 HRS [facility] Comment on above: Performed By: #### A NACX ####[facility] Cjgngufasz276[address] [place], [place] [address]Dr. Yilan Reagan CULTURE OTHERon 02-08-2021 CULTURE OTHER Specimen Comments: RIGHT LEG REAMINGS Culture Observations: NORMAL SKIN ARELI. [facility] Comment on above: Performed By: #### O THCX ####[facility] Gwlqscwjbl7829 [place], [place] [address]Hz. Yilan Reagan CULTURE OTHER Specimen Comments: RIGHT FOOT IRRIGATION SWAB Culture Observations: NO GROWTH AT 72 HRS [facility] Comment on above: Performed By: #### O THCX ####[facility] Qjejnleuoi174[address] [place] [address]Ez. Yilan Reagan CULTURE OTHER Specimen Comments: RIGHT CALCANEOUS BONE Culture Observations: NORMAL SKIN ARELI. Normal [facility] Comment on above: Performed By: #### O THCX ####[facility] Soxwscbimd9268 [place] [address]Dr. Anjali Reagan CULTURE OTHER Specimen Comments: RIGHT TIBIA BONE Culture Observations: NO GROWTH AT 72 HRS Normal [facility] Comment on above: Performed By: #### O THCX ####[facility] Jmskaqwnqq9725 [place] [address]Dr. Anjali Reagan CULTURE OTHER Specimen Comments: RIGHT TALUS BONE Culture Observations: NORMAL SKIN ARELI. Normal [facility] Comment on above: Performed By: #### O THCX ####[facility] Hnzpibkawx8633 [place] [address]Dr. Anjali Reagan CULTURE OTHER Specimen Comments: RIGHT ANKLE ABSCESS Culture Observations: NO GROWTH AT 72 HRS Normal [facility] Comment on above: Performed By: #### O THCX ####[facility] Acibasycph415[address] [place], [place] [address]Dr. Anjali Reagan GRAM STAINon 02-08-2021 COMMENTS NO ORGANISMS OBSERVED Normal [facility] Comment on above: Performed By: #### G STAIN ####[facility] Dafbgqxcat0106[address] [place], [place] [address]Dr. Anjali Reagan DIPHTHEROIDS Normal [facility] Comment on above: Performed By: #### G STAIN ####[facility] Jdwvbejvsg7331 [place] [address]Dr. Anjali Reagan EPITHELIALS Normal [facility] Comment on above: Performed By: #### G STAIN ####[facility] Zilsrbvvfq1372 [place] [address]Dr. Anjali Reagan FUNGAL ELEMENTS Normal [facility] Comment on above: Performed By: #### G STAIN ####[facility] Prhcpymirk[address] [place], [place] [address]Dr. Anjali Reagan GRAM NEG BACILLI Normal [facility] Comment on above: Performed By: #### G STAIN ####[facility] Dzybuhcqsf147[address] [place], [place] [address]Dr. Anjali Reagan GRAM NEG DIPPLOCOCCI Normal [facility] Comment on above: Performed By: #### G STAIN ####[facility] Kwnyrjaeno2431 [place] [address]Dr. Anjali Reagan GRAM POS BACILLI Normal [facility] Comment on above: Performed By: #### G STAIN ####[facility] Lfrynaimdt9871 [place] [address]Dr. Anjali Reagan GRAM POSITIVE COCCI Normal [facility] Comment on above: Performed By: #### G STAIN ####[facility] Wcaftagenm0717 [place] [address]Dr. Anjali Reagan GRAM STAIN SOURCE RIGHT LEG REAMINGS Normal [facility] Comment on above: Performed By: #### G STAIN ####[facility] Iwylcntlxn9618[address] [place], [place] [address]Dr. Anjali Reagan GRAM STAIN SOURCE RIGHT FOOT POST IRRIGATION SWAB Normal [facility] Comment on above: Performed By: #### G STAIN ####[facility] Gmdvwjcezy2585[address] [place], [place] [address]Dr. Anjali Reagan GS_DIPTH Normal [facility] Comment on above: Performed By: #### G STAIN ####[facility] Uyoopgsscs6805 [place] [address]Dr. Anjali Reagan WBC MODERATE Normal [facility] Comment on above: Performed By: #### G STAIN ####[facility] Ufusoiuzsh450[address] [place], [place] [address]Dr. Anjali Reagan WBC NONE SEEN Normal [facility] Comment on above: Performed By: #### G STAIN ####[facility] Myeraihfnf9301 [place] [address]Dr. Anjali Reagan COMMENTS NO ORGANISMS OBSERVED Normal [facility] Comment on above: Performed By: #### G STAIN ####[facility] Xdegostlty3396[address] [place], [place] [address]Dr. Anjali Reagan DIPHTHEROIDS Normal [facility] Comment on above: Performed By: #### G STAIN ####[facility] Jljzhcvjvm0042 [place] [address]Dr. Anjali Reagan EPITHELIALS Normal [facility] Comment on above: Performed By: #### G STAIN ####[facility] Rwzbydazox7672 [place] [address]Dr. Anjali Reagan FUNGAL ELEMENTS Normal [facility] Comment on above: Performed By: #### G STAIN ####[facility] Crguxywybb0990 [place] [address]Dr. Anjali Reagan GRAM NEG BACILLI Normal [facility] Comment on above: Performed By: #### G STAIN ####[facility] Rwagsirroj7919 [place] [address]Dr. Anjali Reagan GRAM NEG DIPPLOCOCCI Normal [facility] Comment on above: Performed By: #### G STAIN ####[facility] Dbvpnlytha3400 [place] [address]Dr. Anjali Reagan GRAM POS BACILLI Normal [facility] Comment on above: Performed By: #### G STAIN ####[facility] Mnqkogrnjx6125[address] [place], [place] [address]Dr. Anjali Reagan GRAM POSITIVE COCCI Normal [facility] Comment on above: Performed By: #### G STAIN ####[facility] Fkgzjkwjau3409 [place] [address]Dr. Anjali Reagan GRAM STAIN SOURCE RIGHT TIBIA BONE Normal [facility] Comment on above: Performed By: #### G STAIN ####[facility] Erhcswsgxj0735 [place] [address]Dr. Anjali Reagan GRAM STAIN SOURCE RIGHT CALCANEOUS BONE Normal [facility] Comment on above: Performed By: #### G STAIN ####[facility] Hycrbxyikg4464 [place] [address]Dr. Anjali Reagan GRAM STAIN SOURCE RIGHT TALUS BONE Normal [facility] Comment on above: Performed By: #### G STAIN ####[facility] Lbxuorssha8768 [place] [address]Dr. Anjali Reagan GS_DIPTH Normal [facility] Comment on above: Performed By: #### G STAIN ####[facility] Jovuiprldi2700 [place] [address]Dr. Anjali Reagan WBC NONE SEEN Normal [facility] Comment on above: Performed By: #### G STAIN ####[facility] Mhesgpzkgs2369 [place] [address]Dr. Anjali Reagan WBC FEW Normal [facility] Comment on above: Performed By: #### G STAIN ####[facility] Brgvkezsxa6754 [place] [address]Dr. Anjali Reagan COMMENTS NO ORGANISMS OBSERVED Normal [facility] Comment on above: Performed By: #### G STAIN ####[facility] Vrygmzjvxt9447 [place] [address]Dr. Anjali Reagan DIPHTHEROIDS Normal [facility] Comment on above: Performed By: #### G STAIN ####[facility] Popylqyxgq4611 [place] [address]Dr. Anjali Reagan EPITHELIALS Normal [facility] Comment on above: Performed By: #### G STAIN ####[facility] Fysuobjlen7538[address] [place], [place] [address]Dr. Anjali Reagan FUNGAL ELEMENTS Normal [facility] Comment on above: Performed By: #### G STAIN ####[facility] Prkiycrhyb1544[address] [place], [place] [address]Dr. Anjali Reagan GRAM NEG BACILLI Normal [facility] Comment on above: Performed By: #### G STAIN ####[facility] Ozfvshmyss076[address] [place], [place] [address]Dr. Anjali Reagan GRAM NEG DIPPLOCOCCI Normal [facility] Comment on above: Performed By: #### G STAIN ####[facility] Htqvmmopkj0762 [place] [address]Dr. Anjali Reagan GRAM POS BACILLI Normal [facility] Comment on above: Performed By: #### G STAIN ####[facility] Acioigtowo3491 [place] [address]Dr. Anjali Reagan GRAM POSITIVE COCCI Normal [facility] Comment on above: Performed By: #### G STAIN ####[facility] Pfmwtthigc2366 [place] [address]Dr. Anjali Reagan GRAM STAIN SOURCE RIGHT FOOT ABSCESS SWAB Normal [facility] Comment on above: Performed By: #### G STAIN ####[facility] Uqimwzgekw7193 [place] [address]Dr. Anjali Reagan GS_DIPTH Normal [facility] Comment on above: Performed By: #### G STAIN ####[facility] Mqpqbzacpt0471 [place] [address]Dr. Anjali Tez WBC RARE Normal [facility] Comment on above: Performed By: #### G STAIN ####[facility] Pjndjydflz0928 [place] [phone]. Anjali Tez HIV 1/2 RAPID (EXPOSURE ONLY )on 02-08-2021 HIV AB Negative [facility] Comment on above: Performed By: #### R PDHIV ####[facility] Fubhkywlqk3789[address] [place], [place] [address]Dr. Anjali Reagan HIV AG Negative [facility] Comment on above: Performed By: #### R PDHIV ####[facility] Muykzjfshb026[address] [place], [place] [address]Dr. Biancaramona Tez INTERNAL CONTROLS Within Normal Limits Normal Wi thin Normal Limits [facility] Comment on above: Performed By: #### R PDHIV ####[facility] Rhvrifcfbb1201[address] [place], [place] [address]Dr. Anjali Reagan RAPID HIV INFO SEE BELOW [facility] Comment on above: Result Comment: This test is used for the initial screening of the exposure source. Confirmation of all results will be obtained through reference lab testing. Performed By: #### R PDHIV ####[facility] Cfcvsrrcev9958[address] [place], [place] [address]Dr. Biancaramona Tez POINT OF CARE GLUCOSEon 11-0 Glucose [Mass/Vol] 400 mg/dL Critically high 74-106 [facility] Comment on above: Performed By: #### P OCGLUC ####[facility] Cpzkrltsvy7318[address] [place], [place] [address]Dr. Biancaramona Tez Glucose [Mass/Vol] 373 mg/dL Critically high 74-106 [facility] Comment on above: Performed By: #### P OCGLUC ####[facility] Crgzpsknpl9698[address] [place], [place] [address]Dr. Biancaramona Reagan Glucose [Mass/Vol] 159 mg/dL Critically high 74-106 [facility] Comment on above: Performed By: #### P OCGLUC ####[facility] Gayqttxkit6766 [place] [address]Dr. Anjali Reagan Glucose [Mass/Vol] 160 mg/dL Critically high 74-106 [facility] Comment on above: Performed By: #### P OCGLUC ####[facility] Pqntfvfzni7256 [place] [address]Dr. Anjali Reagan SED RATE WESTERGRENon 2020 SED RATE 51 mm/hr Critically high <=20 [facility] Comment on above: Performed By: #### S EDR ####[facility] Lnrqqjewhi618916 [address] [place], [place] [address]Dr. Anjali Reagan CBC W MANUAL DIFFon 02-06-20 21 ATYPICAL LYMPH # Normal [facility] Comment on above: Performed By: #### C BCMAN ####[facility] Rbryhrpybg9565[address] [place], [place] [address]Dr. Anjali Reagan ATYPICAL LYMPH % Normal [facility] Comment on above: Performed By: #### C BCMAN ####[facility] Uxisfgeuxb93[address] [place], [place] [address]Dr. Anjali Reagan BAND # 0.2 103/ul Normal 0.0-0.3 [facility] Comment on above: Performed By: #### C BCMAN ####[facility] Fxepabmvob9419[address] [place], [place] [address]Dr. Anjali Reagan BAND % 3 % Normal 0-5 [facility] Comment on above: Performed By: #### C BCMAN ####[facility] Eqrumzwjhq613[address] [place], [place] [address]Dr. Anjali Reagan BASOM # 0.07 103/ul Normal 0.00-0.10 [facility] Comment on above: Performed By: #### C BCMAN ####[facility] Agpwegznpa5058[address] [place], [place] [address]Dr. Anjali Reagan BASOM % 1.0 % Normal 0.2-2.0 [facility] Comment on above: Performed By: #### C BCMAN ####[facility] Prmdcqnsrn4895 [place], [place] [address]Wg. Anjali Reagan BLAST # Normal [facility] Comment on above: Performed By: #### C BCMAN ####[facility] Vdzixgsnwu2319 [place] [address]Dr. Anjali Reagan BLAST % Normal [facility] Comment on above: Performed By: #### C BCMAN ####[facility] Lnkrczgghi6894 [place] [address]Dr. Anjali Reagan CORRECTED WBC Normal 4.0-11.0 [facility] Comment on above: Performed By: #### C BCMAN ####[facility] Strlkjnzzo4441 [place] [address]Dr. Anjali Reagan EOS # 0.57 103/ul Normal 0.00-0.70 [facility] Comment on above: Performed By: #### C BCFIONA ####[facility] Oeaymfpwfj8215 [place] [address]Dr. Anjali Reagan EOS% 8.0 % Critically high 0.9-7.0 [facility] Comment on above: Performed By: #### C BCMAN ####[facility] Hjrexyrxgt6661 [place] [address]Dr. Anjali Reagan HCT 32.9 % Critically low 42.0-54.0 [facility] Comment on above: Performed By: #### C BCFIONA ####[facility] Cvfhfsuelc4260 [place] [address]Dr. Anjali Reagan HGB 10.2 g/dl Critically low 14.0-18.0 [facility] Comment on above: Performed By: #### C BCMAN ####[facility] Pvsleipsci5272 [place] [address]Dr. Anjali Reagan LYMPHM # 0.78 103/ul Critically low 1.20-3.80 [facility] Comment on above: Performed By: #### C BCMAN ####[facility] Ysgokzynwu2017 [place] [address]Dr. Anjali Reagan LYMPHM% 11.0 % Critically low 20.5-60.0 [facility] Comment on above: Performed By: #### C CORI ####[facility] Ahraavrygi6798 [place] [address]Dr. Anjali Reagan MCH 24.9 pg Critically low 25.9-34.0 [facility] Comment on above: Performed By: #### C CORI ####[facility] Nqhfevyeac2604 [place] [address]Dr. Anjali Reagan MCHC 31.0 g/dl Normal 29.9-35.2 [facility] Comment on above: Performed By: #### C CORI ####[facility] Ruggqyqnrx0654 [place] [address]Dr. Anjali Reagan MCV 80.4 fL Normal 80.0-94.0 [facility] Comment on above: Performed By: #### C CORI ####[facility] Slrogsjvvr2469[address] [place], [place] [address]Dr. Anjali Reagan METAMYELOCYTE # Normal [facility] Comment on above: Performed By: #### C CORI ####[facility] Dlxtxjnnrn1181 [place] [address]Dr. Anjali Reagan METAMYELOCYTE % Normal [facility] Comment on above: Performed By: #### C CORI ####[facility] Pskztvmfbf2014 [place] [address]Dr. Anjali Reagan MONOM# 0.57 103/ul Normal 0.30-0.80 [facility] Comment on above: Performed By: #### C CORI ####[facility] Ztjomhbwrt4201 [place] [address]Dr. Anjali Reagan MONOM% 8.0 % Normal 1.7-12.0 [facility] Comment on above: Performed By: #### C CORI ####[facility] Unbsfbmmsk6366 [place] [address]Dr. Anjali Reagan MPV 9.2 fL Critically low 9.5-13.5 [facility] Comment on above: Performed By: #### C CORI ####[facility] Dckrjyqtnn4136 [place] [address]Dr. Anjali Reagan MYELOCYTE # Normal [facility] Comment on above: Performed By: #### C CORI ####[facility] Nuhulobbwb1440 [place] [address]Dr. Anjali Reagan MYELOCYTE % Normal [facility] Comment on above: Performed By: #### C CORI ####[facility] Iuzkxgtruo1265 [place] [address]Dr. Anjali Reagan NRBC Normal [facility] Comment on above: Performed By: #### C CORI ####[facility] Lvjwyjikum1708 [place] [address]Dr. Anjali Reagan OVALOCYTES 1+ Normal [facility] Comment on above: Performed By: #### C CORI ####[facility] Hhnamluonw3774 [place] [address]Dr. Anjali Reagan PLT 209 103/ul Normal 150-450 [facility] Comment on above: Performed By: #### C CORI ####[facility] Edxitmmwxy0424 [place] [address]Dr. Anjali Reagan RBC 4.09 106/ul Critically low 4.70-6.10 [facility] Comment on above: Performed By: #### C CORI ####[facility] Zsywmvpptf0908 [place] [address]Dr. Anjali Reagan RDW 18.2 % Critically high 11.0-15.0 [facility] Comment on above: Performed By: #### C CORI ####[facility] Vyitgplgnt7364 [place] [address]Dr. Anjali Reagan SEG # 4.90 103/ul Normal 1.40-6.50 [facility] Comment on above: Performed By: #### C CORI ####[facility] Wazmcfkrii2621 [place] [address]Dr. Anjali Reagan SEG % 69.0 % Normal 43.0-75.0 [facility] Comment on above: Performed By: #### C CORI ####[facility] Fwxmpvofxi3090 [place] [address]Dr. Anjali Reagan WBC 7.1 103/ul Normal 4.0-11.0 [facility] Comment on above: Performed By: #### C BCMAN ####[facility] Szlvutjttw9101 [place] [phone]. Anjali Reagan CT ABD/PELVIS WO CONon 02-05 CT ABD/PELVIS WO CON Normal [facility] Covid-19 PCR (CVDTB)on SARS-CoV-2 (COVID-19) RNA MEREDITH+probe Ql (Unsp spec) Not detected Normal NOT DETECTED [facility] Comment on above: Result Comment: This test is not yet approved or cleared by the [place] FDA. When there are no FDA-approved or cleared tests available, and other criteria are met, FDA can make tests available under an emergency access mechanism called an Emergency Use Authorization (EUA). The EUA for this test is supported by the Quality Reviewer of Health and Human Service's (HHS's) declaration [...] with SARS-CoV-2. Performed By: #### C VDTBH ####[facility] Pfbolsigaw7117 [place] [address]Dr. Anjali Reagan ER URINE PROFILEon Bilirubin Ql (U) Negative Normal NEGATIVE [facility] Comment on above: Performed By: #### E RUR ####[facility] Hoqpmzwids4486 [place] [phone] Biancaramona Reagan Clarity (U) CLEAR Normal CLEAR [facility] Comment on above: Performed By: #### E RUR ####[facility] Wbitkoebqk8065 [place] [address]DrVeronica Reagan Color (U) LT. YELLOW Normal YELLOW [facility] Comment on above: Performed By: #### E RUR ####[facility] Dqunupgedt2776[address] [place], [place] [address]Dr. Anjali Reagan ERUAHD A micrscopic examination will be performed if indicated. Normal [facility] Comment on above: Performed By: #### E RUR ####[facility] Plejnrdsmz8657[address] [place], [place] [address]Dr. Anjali Reagan Glucose Ql (U) Negative Normal NEGATIVE [facility] Comment on above: Performed By: #### E RUR ####[facility] Dlmjwvytir086[address] [place], [place] [address]Dr. Anjali Reagan Hemoglobin Ql (U) Negative Normal NEGATIVE [facility] Comment on above: Performed By: #### E RUR ####[facility] Lrpymetito3963[address] [place], [place] [address]Dr. Anjali Reagan Ketones Ql (U) Negative Normal NEGATIVE [facility] Comment on above: Performed By: #### E RUR ####[facility] Aveztbgusd0067[address] [place], [place] [address]Dr. Anjali Reagan LEUKOCYTES Negative Normal NEGATIVE [facility] Comment on above: Performed By: #### E RUR ####[facility] Qidjmiskwv740316 [address] [place], [place] [address]Dr. Anjali Reagan Nitrite Ql (U) Negative Normal NEGATIVE [facility] Comment on above: Performed By: #### E RUR ####[facility] Xxkmkskker915[address] [place], [place] [address]Dr. Anjali Reagan pH (U) 6.0 [pH] Normal 5-9 [facility] Comment on above: Performed By: #### E RUR ####[facility] Jiztnkwaxq2745[address] [place], [place] [address]Dr. Anjali Reagan SPEC GRAVITY 1.015 Normal 1.005-<=1.0 25 [facility] Comment on above: Performed By: #### E RUR ####[facility] Emwitdvfvs6424[address] [place], [place] [address]Dr. Anjali Reagan UA PROTEIN TRACE Normal NEGATIVE/ TRACE [facility] Comment on above: Performed By: #### E RUR ####[facility] Yloivxkgrg3435[address] [place], [place] [address]Dr. Anjali Reagan UR MICRO IND NOT INDICATED Normal [facility] Comment on above: Performed By: #### E RUR ####[facility] Cywyrwqsrp1829 [place] [address]Dr. Anjali Reagan Urobilinogen Qn (U) 0.2 {Geremias'U}/dL Normal 0.2 - 1. 0 [facility] Comment on above: Performed By: #### E RUR ####[facility] Eirviohysy9117[address] [place], [place] [address]DrVeronica Reagan PROF 14(COMP METB)on 021 Albumin [Mass/Vol] 2.8 g/dL Critically low 3.5-5.0 [facility] Comment on above: Performed By: #### C MP ####[facility] Ltoqhgsmrq404316 [address] [place], [place] [address]Dr. Anjali Reagan Albumin/Globulin [Mass ratio] 0.6 {ratio} Normal [facility] Comment on above: Performed By: #### C MP ####[facility] Nffgthixja12[address] [place], [place] [address]Dr. Anjali Reagan ALP [Catalytic activity/Vol] 125 U/L Normal 38-126 [facility] Comment on above: Performed By: #### C MP ####[facility] Vgijdekvup4619[address] [place], [place] [address]Dr. Anjali Reagan ALT [Catalytic activity/Vol] 22 U/L Normal 21-72 [facility] Comment on above: Performed By: #### C MP ####[facility] Rljexwhaqk575[address] [place], [place] [address]Dr. Anjali Reagan Anion gap [Moles/Vol] 13.1 mmol/L Normal [facility] Comment on above: Performed By: #### C MP ####[facility] Tqcvbqekxt3524[address] [place], [place] [address]Dr. Anjali Reagan AST [Catalytic activity/Vol] 26 U/L Normal 17-59 [facility] Comment on above: Performed By: #### C MP ####[facility] Knpfphumlm7184 [place] [address]Dr. Anjali Tez Bilirubin [Mass/Vol] 0.8 mg/dL Normal 0.2-1.3 [facility] Comment on above: Performed By: #### C MP ####[facility] Rfyekcywwx6978[address] [place], [place] [address]Dr. Anjali Tez Calcium [Mass/Vol] 9.2 mg/dL Normal 8.4-10.2 [facility] Comment on above: Performed By: #### C MP ####[facility] Emikxxrxez292816 [address] [place], [place] [address]Dr. Anjali Tez Chloride [Moles/Vol] 98 mmol/L Normal 98-107 [facility] Comment on above: Performed By: #### C MP ####[facility] Nrfessowuu1814[address] [place], [place] [address]Dr. Anjali Tez CO2 [Moles/Vol] 28.7 mmol/L Normal 22.0-30.0 [facility] Comment on above: Performed By: #### C MP ####[facility] Azkjxrdczw537216 [address] [place], [place] [address]Dr. Anjali Tez Creatinine [Mass/Vol] 1.62 mg/dL Critically high 0.66-1.25 [facility] Comment on above: Performed By: #### C MP ####[facility] Gxsknzimzt8012[address] [place], [place] [address]Dr. Anjali Tez EGFR-AF CITIZEN OF [place] 52 mL/min/1.73m2 Critically low >=60 [facility] Comment on above: Performed By: #### C MP ####[facility] Gbxevryuec4244[address] [place], [place] [address]Dr. Anjali Reagan EGFR-NON AF CITIZEN OF [place] 43 mL/min/1.73m2 Critically low >=60 [facility] Comment on above: Performed By: #### C MP ####[facility] Avdkgabpsn358016 [address] [place], [place] [address]Dr. Anjali Reagan Globulin (S) [Mass/Vol] 4.6 g/dL Normal [facility] Comment on above: Performed By: #### C MP ####[facility] Ejmfsrzars3596[address] [place], [place] [address]Dr. Biancaramona Tez Glucose [Mass/Vol] 192 mg/dL Critically high 74-106 [facility] Comment on above: Performed By: #### C MP ####[facility] Satuomaiao719716 [address] [place], [place] [address]Dr. Anjali Reagan Potassium [Moles/Vol] 4.8 mmol/L Normal 3.4-5.0 [facility] Comment on above: Performed By: #### C MP ####[facility] Ziujrrwkjd423[address] [place], [place] [address]Dr. Anjali Reagan Protein [Mass/Vol] 7.4 g/dL Normal 6.1-8.2 [facility] Comment on above: Performed By: #### C MP ####[facility] Jiwfrbbjqb3818[address] [place], [place] [address]Dr. Anjali Reagan Sodium [Moles/Vol] 135 mmol/L Critically low 137-145 [facility] Comment on above: Performed By: #### C MP ####[facility] Dvpzrefjfr065[address] [place], [place] [address]Dr. Anjali Reagan Urea nitrogen [Mass/Vol] 40.0 mg/dL Critically high 9.0-20 .0 [facility] Comment on above: Performed By: #### C MP ####[facility] Vkqwjztozm5936[address] [place], [place] [address]Dr. Anjali Reagan Urea nitrogen/Creatinine [Mass ratio] 24.7 mg/mg Normal [facility] Comment on above: Performed By: #### C MP ####[facility] Zmfkojyevd5676[address] [place], [place] [address]Dr. Anjali Reagan PROF CHEM 8 (BAS METB)on Anion gap [Moles/Vol] 13.4 mmol/L Normal [facility] Comment on above: Performed By: #### B MP ####[facility] Eadpdunczq[address] [place], [place] [address]Dr. Anjali Reagan Calcium [Mass/Vol] 9.3 mg/dL Normal 8.4-10.2 [facility] Comment on above: Performed By: #### B MP ####[facility] Rslmnbvwob8017 [place] [address]Dr. Anjali Reagan Chloride [Moles/Vol] 98 mmol/L Normal 98-107 [facility] Comment on above: Performed By: #### B MP ####[facility] Dgsnenjaqa3222 [place] [address]Dr. Anjali Reagan CO2 [Moles/Vol] 28.8 mmol/L Normal 22.0-30.0 [facility] Comment on above: Performed By: #### B MP ####[facility] Xddfhxvlns4325[address] [place], [place] [address]Dr. Anjali Reagan Creatinine [Mass/Vol] 1.72 mg/dL Critically high 0.66-1.25 [facility] Comment on above: Performed By: #### B MP ####[facility] Kafdidwpnj7919[address] [place], [place] [address]Dr. Anjali Reagan EGFR-AF CITIZEN OF [place] 49 mL/min/1.73m2 Critically low >=60 [facility] Comment on above: Performed By: #### B MP ####[facility] Mzfmbmozwh7247[address] [place], [place] [address]Dr. Anjali Reagan EGFR-NON AF CITIZEN OF [place] 40 mL/min/1.73m2 Critically low >=60 [facility] Comment on above: Performed By: #### B MP ####[facility] Omlzcvpkwz9[address] [place] [address]Dr. Anjali Reagan Glucose [Mass/Vol] 204 mg/dL Critically high 74-106 [facility] Comment on above: Performed By: #### B MP ####[facility] Qwptijtctf2395[address] [place], [place] [address]Dr. Anjali Reagan Potassium [Moles/Vol] 4.2 mmol/L Normal 3.4-5.0 [facility] Comment on above: Performed By: #### B MP ####[facility] Bzqwbovuap6020 [place], [place] [address]Ld. Anjali Reagan Sodium [Moles/Vol] 136 mmol/L Critically low 137-145 [facility] Comment on above: Performed By: #### B MP ####[facility] Uxfrqbkftv0826 [place], [place] [address]Jw. Anjali Reagan Urea nitrogen [Mass/Vol] 35.0 mg/dL Critically high 9.0-20 .0 [facility] Comment on above: Performed By: #### B MP ####[facility] Tvjbbcsfza3958 [place], [place] [address]Vw. Anjali Reagan Urea nitrogen/Creatinine [Mass ratio] 20.3 mg/mg Normal [facility] Comment on above: Performed By: #### B MP ####[facility] Hvwvvsylbi0605 [place], [place] [address]Co. Anjali Reagan CT ANKLE RT WO CONon 021 CT ANKLE RT WO CON Normal [facility] XR ANKLE RT MIN 3 VIEWSon XR ANKLE RT MIN 3 VIEWS Normal [facility] XR ANKLE RT MIN 3 VIEWSon XR ANKLE RT MIN 3 VIEWS Normal [facility] Otolaryngology Office/Clinic Noteon 01-19-2021 Otolaryngology Office/Clinic [...] Dr. Freed. Previous pathology by physician in [place] about 1 year ago. PMHx of multiple [...] 2. Basal (more content not included)... Normal [facility] BASIC METABOLIC PANEL W/O CA on 01-15-2021 Chloride [Moles/Vol] 98 mmol/L Normal 98-110 [facility] Comment on above: Order Comment: FASTI NG:YESFASTING: YES Performed By: #### 1 2861, 774, 041 #### [facility] [address], [address] [place] [address] Brick Tester: Juan Meraz MD CO2 [Moles/Vol] 26 mmol/L Normal 20-32 [facility] Comment on above: Order Comment: FASTI NG:YESFASTING: YES Performed By: #### 1 0165, 498, 905 #### [facility] [place] [address] Brick Tester: Juan Meraz MD Creatinine [Mass/Vol] 1.71 mg/dL High 0.70-1.25 [facility] Comment on above: Order Comment: FASTI NG:YESFASTING: YES Result Comment: For patients >49 years of age, the reference limit for Creatinine is approximately 13% higher for people identified as -[place]ian. Performed By: #### 1 0165, 117, 905 #### [facility] [place] [address] Brick Tester: Juan Meraz MD eGFR NON-AFR. CITIZEN OF [place] 42 mL/min/1.73m2 Low > OR = 60 [facility] Comment on above: Order Comment: FASTI NG:YESFASTING: YES Performed By: #### 1 016, 495, 905 #### [facility] [place] [address] Brick Tester: Juan Meraz MD GFR/1.73 sq M.predicted among blacks MDRD (S/P/Bld) [Vol rate/Area] 48 mL/min/{1.73_m2} Low > OR = 60 [facility] Comment on above: Order Comment: FASTI NG:YESFASTING: YES Performed By: #### 1 0165, 496, 905 #### [facility] [address], [address] [place] [address] Brick Tester: Juan Meraz MD Glucose [Mass/Vol] 186 mg/dL High 65-99 [facility] Comment on above: Order Comment: FASTI NG:YESFASTING: YES Result Comment: Fasting reference interval For someone without known diabetes, a glucose value >125 mg/dL indicates that they may have diabetes and this should be confirmed with a follow-up test. Performed By: #### 1 0165, 496, 905 #### [facility] [place] [address] Brick Tester: Juan Meraz MD Potassium [Moles/Vol] 4.3 mmol/L Normal 3.5-5.3 [facility] Comment on above: Order Comment: FASTI NG:YESFASTING: YES Performed By: #### 1 0165, 496, 905 #### [facility] [place] [address] Brick Tester: Juan Meraz MD Sodium [Moles/Vol] 137 mmol/L Normal 135-146 [facility] Comment on above: Order Comment: FASTI NG:YESFASTING: YES Performed By: #### 1 0165, 494, 905 #### [facility] [place] [address] Brick Tester: Juan Meraz MD Urea nitrogen [Mass/Vol] 34 mg/dL High 7-25 [facility] Comment on above: Order Comment: FASTI NG:YESFASTING: YES Performed By: #### 1 0165, 490, 905 #### [facility] [place] [address] Brick Tester: Juan Meraz MD Urea nitrogen/Creatinine [Mass ratio] 20 mg/mg Normal 6-22 [facility] Comment on above: Order Comment: FASTI NG:YESFASTING: YES Performed By: #### 1 0165, 491, 905 #### [facility] [place] [address] Brick Tester: Juan Meraz MD CBC (INCLUDES DIFF/PLT)on Basophils (Bld) [#/Vol] 0.026 10*3/uL Normal 0-200 [facility] Comment on above: Performed By: #### 1 0165, 496, 905 #### [facility] [place] [address] Brick Tester: Juan Meraz MD Basophils/100 WBC (Bld) 0.3 % Normal [facility] Comment on above: Performed By: #### 1 0165, 496, 905 #### [facility] of [place] [address] Brick Tester: Juan Meraz MD Eosinophils (Bld) [#/Vol] 0.202 10*3/uL Normal 15-500 [facility] Comment on above: Performed By: #### 1 0165, 496, 905 #### [facility] of [place] [address] Brick Tester: Juan Meraz MD Eosinophils/100 WBC (Bld) 2.3 % Normal [facility] Comment on above: Performed By: #### 1 0165, 496, 905 #### [facility] [place] [address] Brick Tester: Juan Meraz MD Erythrocyte distribution width (RBC) [Ratio] 15.7 % High 11.0-15.0 [facility] Comment on above: Performed By: #### 1 016, 496, 905 #### [facility] [place] [address] Brick Tester: Juan Meraz MD Hematocrit (Bld) [Volume fraction] 34.9 % Low 38.5-50.0 [facility] Comment on above: Performed By: #### 1 016, 493, 905 #### [facility] [place] [address] Brick Tester: Juan Meraz MD Hemoglobin (Bld) [Mass/Vol] 10.9 g/dL Low 13.2-17.1 [facility] Comment on above: Performed By: #### 1 0165, 496, 905 #### [facility] [place] [address] Brick Tester: Juan Meraz MD Lymphocytes (Bld) [#/Vol] 0.748 10*3/uL Low 850-3900 [facility] Comment on above: Performed By: #### 1 016, 496, 905 #### [facility] [place] [address] Brick Tester: Jaun Meraz MD Lymphocytes/100 WBC (Bld) 8.5 % Normal [facility] Comment on above: Performed By: #### 1 5, 496, 905 #### [facility] [place] [address] Brick Tester: Juan Meraz MD MCH (RBC) [Entitic mass] 25.1 pg Low 27.0-33.0 [facility] Comment on above: Performed By: #### 1 Mikie5, 496, 905 #### [facility] [place] [address] Brick Tester: Juan Meraz MD MCHC (RBC) [Mass/Vol] 31.2 g/dL Low 32.0-36.[address] [facility] Comment on above: Performed By: #### 1 016, 496, 905 #### [facility] [place] [address] Brick Tester: Juan Meraz MD MCV (RBC) [Entitic vol] 80.4 fL Normal 80.0-100.0 [facility] Comment on above: Performed By: #### 1 164, 496, 905 #### [facility] [place] [address] Brick Tester: Juan Meraz MD Monocytes (Bld) [#/Vol] 0.889 10*3/uL Normal 200-950 [facility] Comment on above: Performed By: #### 1 016, 496, 905 #### [facility] [place] [address] Brick Tester: Juan Meraz MD Monocytes/100 WBC (Bld) 10.1 % Normal [facility] Comment on above: Performed By: #### 1 016, 496, 905 #### [facility] of [address], [address] [place] [address] Brick Tester: Juan Meraz MD Neutrophils (Bld) [#/Vol] 6.934 10*3/uL Normal 3604-6202 [facility] Comment on above: Performed By: #### 1 0165, 496, 905 #### [facility] of [place] [address] Brick Tester: Juan Meraz MD Neutrophils/100 WBC (Bld) 78.8 % Normal [facility] Comment on above: Performed By: #### 1 0165, 496, 905 #### [facility] of [place] [address] Brick Tester: Juan Meraz MD Platelet mean volume (Bld) [Entitic vol] 9.9 fL Normal 7.5-12.5 [facility] Comment on above: Performed By: #### 1 0165, 496, 905 #### [facility] of [place] [address] Brick Tester: Juan Meraz MD Platelets (Bld) [#/Vol] 353 10*3/uL Normal 140-400 [facility] Comment on above: Performed By: #### 1 0165, 496, 905 #### [facility] of [place] [address] Brick Tester: Juan Meraz MD RBC (Bld) [#/Vol] 4.34 10*6/uL Normal 4.20-5.80 [facility] Comment on above: Performed By: #### 1 0165, 496, 905 #### [facility] of [place] [address] Brick Tester: Juan Meraz MD WBC (Bld) [#/Vol] 8.8 10*3/uL Normal 3.8-10.8 [facility] Comment on above: Performed By: #### 1 0165, 496, 905 #### [facility] of [address] [place] [address] Brick Tester: Juan Meraz MD Otolaryngology Office/Clinic Noteon 01-14-2021 [...] oral caps (more content not included)... Normal [facility] Otolaryngology Office/Clinic Noteon 01-12-2021 Otolaryngology Office/Clinic [...] Dr. Freed. Previous pathology by physician in [place] about 1 year ago. PMHx of multiple [...] separately bill (more content not included)... Normal [facility] Operative Reporton Operative Report Date: January [...] Chirag Gutierrez DO 01/11/21 20:09 EDT Normal [facility] Operative Report Date: January 11, 2021 [...] Chirag Gutierrez DO 01/11/21 09:28 EDT Normal [facility] POC Glucose Randomon 021 Glucose [Mass/Vol] 211 mg/dL High 70-[address] [facility] Comment on above: Performed By: #### C [id number] ####[facility] [place] [address] 01-10-2021 Employed in healthcare? Unknown Normal [facility] Comment on above: Performed By: #### C [id number] ####[facility] [place] [address] Group care resident? Unknown Normal [facility] Comment on above: Performed By: #### C D:[id number] ####[place] [address] [place] [address] In ICU? No Normal [facility] Comment on above: Performed By: #### C D:[id number] ####[address] [address] status? Not Applicable Normal [facility] Comment on above: Performed By: #### C D:[id number] ####[address] [address] SARS-CoV-2 (COVID-19) RNA MEREDITH+probe Ql (Unsp spec) Normal Negative [facility] Comment on above: Result Comment: * [...] Negative ADDITIONAL INFORMATION: Testing performed on the [employer] 3600 using the SARS-CoV-2 Antigen test. Results [...] Administration?s Emergency Use Authorization. HCP Fact Sheet: https://www.fda.gov/media/133226/download Patient Fact Sheet: https://www.fda.gov/media/250498/download Performed By: #### C D:[id number] ####[place] [address] SARS-CoV-2 (COVID-19) RNA MEREDITH+probe Ql (Unsp spec) Unknown Normal [facility] Comment on above: Performed By: #### C D:[id number] ####[place] [address] Symptomatic as defined by CDC? Unknown Normal [facility] Comment on above: Performed By: #### C D:[id number] ####[address] [address] BASIC METABOLIC PANELon 10-0 Calcium [Mass/Vol] 9.6 mg/dL Normal 8.6-10.3 [facility] Comment on above: Performed By: #### 1 0165, 496, 905 #### [facility] [place] [address] Brick Tester: Juan Meraz MD Chloride [Moles/Vol] 100 mmol/L Normal 98-110 [facility] Comment on above: Performed By: #### 1 0165, 496, 905 #### [facility] [place] [address] Brick Tester: Juan Meraz MD CO2 [Moles/Vol] 30 mmol/L Normal 20-32 [facility] Comment on above: Performed By: #### 1 0165, 496, 905 #### [facility] [place] [address] Brick Tester: Juan Meraz MD Creatinine [Mass/Vol] 1.67 mg/dL High 0.70-1.[address] [facility] Comment on above: Result Comment: For patients >49 years of age, the reference limit for Creatinine is approximately 13% higher for people identified as -[place]ian. Performed By: #### 1 0165, 496, 905 #### [facility] [place] [address] Brick Tester: Juan Meraz MD eGFR NON-AFR. CITIZEN OF [place] 43 mL/min/1.73m2 Low > OR = 60 [facility] Comment on above: Performed By: #### 1 016, 496, 905 #### [facility] [place] [address] Brick Tester: Juan Meraz MD GFR/1.73 sq M.predicted among blacks MDRD (S/P/Bld) [Vol rate/Area] 50 mL/min/{1.73_m2} Low > OR = 60 [facility] Comment on above: Performed By: #### 1 016, 492, 905 #### [facility] [place] [address] Brick Tester: Juan Meraz MD Glucose [Mass/Vol] 124 mg/dL High 65-99 [facility] Comment on above: Result Comment: Fasting reference interval For someone without known diabetes, a glucose value between 100 and 125 mg/dL is consistent with prediabetes and should be confirmed with a follow-up test. Performed By: #### 1 164, 493, 905 #### [facility] [place] [address] Brick Tester: Juan Meraz MD Potassium [Moles/Vol] 4.7 mmol/L Normal 3.5-5.3 [facility] Comment on above: Performed By: #### 1 0165, 496, 905 #### [facility] [place] [address] Brick Tester: Juan Meraz MD Sodium [Moles/Vol] 138 mmol/L Normal 135-146 [facility] Comment on above: Performed By: #### 1 0165, 496, 905 #### [facility] [address] [address] Brick Tester: Juan Meraz MD Urea nitrogen [Mass/Vol] 40 mg/dL High 7-25 [facility] Comment on above: Performed By: #### 1 0165, 496, 905 #### [facility] [place] [address], [address] [place] [address] Brick Tester: Juan Meraz MD Urea nitrogen/Creatinine [Mass ratio] 24 mg/mg High 6-22 [facility] Comment on above: Performed By: #### 1 0165, 496, 905 #### [facility] [address], [address] [place] [address] Brick Tester: Juan Meraz MD HEMOGLOBIN A1con 12-31-2020 HEMOGLOBIN [...] 1 0165, 496, 905 #### [facility] [address], [address] [place] [address] Brick Tester: Juan Meraz MD Provider Letteron 12-31-2020 Provider Letter [facility] Ear, Nose & Throat; Facial Plastic Surgery [address] [place] [address] P: [phone] F: [phone] [facility] Re: Anai Rex1955 Date of Visit: 01/05/2021 ATTENTION MEDICAL RECORDS: We are requesting pathology report for biopsy of left ear done within the last 2 years for patient Anai Rdzlucy 59. Thank you, M[facility] Provider Letter [facility] Ear, Nose & Throat; Facial Plastic Surgery [address] [place] [address] P: [phone] F: [phone] Chirag Gutierrez DO, [facility] Re: Anai Rex1955 Date of Visit: 01/05/2021 ATTENTION MEDICAL RECORDS: We are requesting pathology report for biopsy of left ear done within the last 2 years for patient Anai Goodman. Thank you, [facility] Provider Letter [facility] Ear, [facility] & Throat; Facial Plastic Surgery [address] [place] [address] P: [phone] F: [phone] Chirag Gutierrez DO, [facility] Deon Brito [address] [place] [address] [place] [address] Re: Anai Goodman1955 Date of Visit: 01/05/2021 Patient is a mutual patient, referred to us by your office for lesion of his left ear. We are in need of his previous pathology report for this, he returns to our office for biopsy of this lesion on 01/05/21. We would appreciate if you could please fax over this information prior to 01/05/21. Thank you, [facility] URIC ACIDon 12-31-2020 Urate [Mass/Vol] 10.3 mg/dL High 4.0-8.0 [facility] Comment on above: Order Comment: FASTI NG:YES FASTING: YES Result Comment: Ther apeutic target for gout patients: <6.0 mg/dL Performed By: #### 1 0961, 688, 969 #### [facility] [address], [address] [place] [address] Brick Tester: Juan Meraz MD Provider Letteron 12-17-2020 Provider Letter Deon Brito [address] [place] [place] [address] Re: Anai Goodman Date of Visit: 12/15/2020 Dear Deon Braxton, I am referring Anai to your office for care. Attached your will find my notes and impressions from our visit. Deon Braxton DO Re:Anai Goodman 1955 Date of Visit: 12/15/2020 Dear Deon Braxton DO: I had the pleasure of evaluating patient, Anai Goodman, in the [facility] clinic on 12/15/2020. Attached you will find [...] Gutierrez, DO [facility] [place] [address] Let me know if you have any questions or concerns. Sincerely, Tyesha Dunne Providers: The following document(s) were included in the letter: December 15, 2020 13:30:00 EDT - (12/15/2020) Office Visit Note Normal [facility] Otolaryngology Office/Clinic Noteon 12-15-2020 Otolaryngology Office/Clinic [...] Dr. Freed. Previous pathology by physician in [place] about 1 year ago. PMHx of multiple [...] mL, 1 Refill(s), 12/18/20 14:00:00 EDT, Pharmacy: [id number] Medical Decision Making Chronic conditions NOT treated [...] 5000 intl (more content not included)... Normal [facility] Otolaryngology Office/Clinic Note Chief Complaint BCC [...] Dr. Freed. Previous pathology by physician in [place] about 1 year ago. PMHx of multiple [...] meal to (more content not included)... Normal [facility] XR ANKLE RT MIN 3 VIEWSon XR ANKLE RT MIN 3 VIEWS Normal [facility] XR FOOT RT MIN 3 VIEWSon XR FOOT RT MIN 3 VIEWS Normal [facility] XR FOOT RT MIN 3 VIEWSon XR FOOT RT MIN 3 VIEWS Normal [facility] XR FOOT RT MIN 3 VIEWSon XR FOOT RT MIN 3 VIEWS Normal [facility] Consultation Noteon 05-11-19 21 Consultation Note [id number]:127 Normal [facility] Vital Signs Date Time Vital Sign Value Performing Clinician Facility 04-12-2023 11:11-0500 Body height 182.9 cm Terry Leo ESCOBEDO Work Phone: [employer] 04-12-2023 11:11-0500 Body mass index (BMI) [Ratio] 28.89 kg/m2 Terry Leo ESCOBEDO Work Phone: [employer] 04-12-2023 11:11-0500 Body weight 96.62 kg Terry Leo ESCOBEDO Work Phone: [employer] 04-12-2023 11:11-0500 Diastolic blood pressure 74 mm[Hg] Terry ESCOBEDO Work Phone: [employer] 04-12-2023 11:11-0500 Heart rate 74 /min Terry Leo ESCOBEDO Work Phone: [employer] 04-12-2023 11:11-0500 SaO2% (BldA) [Mass fraction] 97 % Terry Lock FANNY Work Phone: [employer] 04-12-2023 11:11-0500 Systolic blood pressure 126 mm[Hg] Terry Leo ESCOBEDO Work Phone: [employer] 12-05-2022 13:00-0400 Body height 177.8 cm Ghanshyam Kaye Other [employer] Other 12-05-2022 13:00-0400 Diastolic blood pressure 70 mm[Hg] Ghanshyam Kaye Other [employer] Other 12-05-2022 13:00-0400 SaO2% (BldA) [Mass fraction] 97 % Ghanshyam Kaye Other [employer] Other 12-05-2022 13:00-0400 Systolic blood pressure 110 mm[Hg] Ghanshyam Kaye Other [employer] Other 10-05-2022 10:00-0400 Body height 177.8 cm Dung Kareem Other [employer] Other 10-05-2022 10:00-0400 Body mass index (BMI) [Ratio] 31.85 kg/m2 Dung Serna Other [employer] Other 10-05-2022 10:00-0400 Body weight 100.7 kg Dung Serna Other [employer] Other 10-05-2022 10:00-0400 Diastolic blood pressure 70 mm[Hg] Dung Serna Other [employer] Other 10-05-2022 10:00-0400 Systolic blood pressure 118 mm[Hg] Dunghilario Serna Other [employer] Other 06-02-2022 11:00-0500 Body height 177.8 cm Reddy Brandt Other [employer] Other 06-02-2022 11:00-0500 Body mass index (BMI) [Ratio] 30.13 kg/m2 Reddy Brandt Other [employer] Other 06-02-2022 11:00-0500 Body weight 95.26 kg Reddy Brandt Other [employer] Other 03-15-2022 13:45-0500 Body height 177.8 cm Reddy Brandt Other [employer] Other 03-15-2022 13:45-0500 Body mass index (BMI) [Ratio] 30.85 kg/m2 Reddy Brandt Other [employer] Other 03-15-2022 13:45-0500 Body weight 97.52 kg Reddy Brandt Other [employer] Other 02-07-2022 14:00-0500 Body height 177.8 cm Ghanshyam Kaye Other [employer] Other 02-07-2022 14:00-0500 Body mass index (BMI) [Ratio] 30.85 kg/m2 Ghanshaym Kaye Other [employer] Other 02-07-2022 14:00-0500 Body weight 97.52 kg Ghanshyam Kaye Other [employer] Other 02-07-2022 14:00-0500 Diastolic blood pressure 72 mm[Hg] Ghanshyam Kaye Other [employer] Other 02-07-2022 14:00-0500 SaO2% (BldA) [Mass fraction] 98 % Ghanshyam Shermaney Other [employer] Other 02-07-2022 14:00-0500 Systolic blood pressure 118 mm[Hg] Ghanshyam Kaye Other [employer] Other 11-29-2021 14:35-0400 Diastolic blood pressure 78 mm[Hg] DO Deon Cordovahas Work Phone: [facility] 11-29-2021 14:35-0400 Heart rate 75 /min DO Deon Yuhas Work Phone: [facility] 11-29-2021 14:35-0400 Respiratory rate 16 /min DO Deon Tashahas Work Phone: [facility] 11-29-2021 14:35-0400 SaO2% (BldA) [Mass fraction] 95 % DO Deon Ramoss Work Phone: [facility] 11-29-2021 14:35-0400 Systolic blood pressure 123 mm[Hg] DO Deon Cordovahas Work Phone: [facility] 11-29-2021 13:39-0400 Inhaled oxygen flow rate 8 L/min DO Deon Cordovahas Work Phone: [facility] 11-29-2021 13:24-0400 Body temperature 98.5 [degF] DO Deon Ramoss Work Phone: [facility] 11-29-2021 12:10-0400 Body height 182.88 cm DO Deon Ramoss Work Phone: [facility] 11-29-2021 12:10-0400 Body mass index (BMI) [Ratio] 30.5 kg/m2 DO Deon Ramoss Work Phone: [facility] 11-29-2021 12:10-0400 Body weight 102.05 kg DO Deon Ramoss Work Phone: [facility] 11-03-2021 10:41-0400 Diastolic blood pressure 66 mm[Hg] DO Deon Cordovahas Work Phone: [facility] 11-03-2021 10:41-0400 Heart rate 78 /min DO Deon Cordovahas Work Phone: [facility] 11-03-2021 10:41-0400 Respiratory rate 16 /min DO Deon Cordovahas Work Phone: [facility] 11-03-2021 10:41-0400 SaO2% (BldA) [Mass fraction] 97 % DO Deon Cordovahas Work Phone: [facility] 11-03-2021 10:41-0400 Systolic blood pressure 121 mm[Hg] DO Deon Yuhas Work Phone: [facility] 11-03-2021 09:41-0400 Body temperature 98 [degF] DO Deon Cordovahas Work Phone: [facility] 11-03-2021 09:11-0400 Inhaled oxygen flow rate 8 L/min DO Deon Cordovahas Work Phone: [facility] 11-03-2021 07:37-0400 Body height 182.88 cm DO Deon Cordovahas Work Phone: [facility] 11-03-2021 07:37-0400 Body mass index (BMI) [Ratio] 30.5 kg/m2 DO Deon Cordovahas Work Phone: [facility] 11-03-2021 07:37-0400 Body weight 102.05 kg DO Deon Cordovahas Work Phone: [facility] 11-01-2021 18:03-0400 Diastolic blood pressure 69 mm[Hg] DO Deon Cordovahas Work Phone: [facility] 11-01-2021 18:03-0400 Heart rate 71 /min DO Deon Cordovahas Work Phone: [facility] 11-01-2021 18:03-0400 Respiratory rate 16 /min DO Deon Ramoss Work Phone: [facility] 11-01-2021 18:03-0400 SaO2% (BldA) [Mass fraction] 99 % DO Deon Cordovahas Work Phone: [facility] 11-01-2021 18:03-0400 Systolic blood pressure 124 mm[Hg] DO Deon Tashahas Work Phone: [facility] 11-01-2021 16:21-0400 Body height 182.88 cm DO Deon Cordovahas Work Phone: [facility] 11-01-2021 16:21-0400 Body temperature 98 [degF] DO Deon Tashahas Work Phone: [facility] 11-01-2021 16:21-0400 Body weight 102.05 kg DO Deon Tashahas Work Phone: [facility] 10-31-2021 10:30-0400 Body height 177.8 cm Reddy Brandt Other [facility] [employer] Other 10-27-2021 05:00-0400 Body temperature 98.6 [degF] DO Deon Ramoss Work Phone: [facility] 10-27-2021 05:00-0400 Diastolic blood pressure 72 mm[Hg] DO Deon Cordovahas Work Phone: [facility] 10-27-2021 05:00-0400 Heart rate 70 /min DO Deon Cordovahas Work Phone: [facility] 10-27-2021 05:00-0400 Respiratory rate 16 /min DO Deon Ramoss Work Phone: [facility] 10-27-2021 05:00-0400 SaO2% (BldA) [Mass fraction] 98 % DO Deon Cordovahas Work Phone: [facility] 10-27-2021 05:00-0400 Systolic blood pressure 132 mm[Hg] DO Deon Cordovahas Work Phone: [facility] 10-24-2021 12:00-0400 Body height 182.88 cm DO Deon Cordovahas Work Phone: [facility] 10-23-2021 05:26-0400 Body weight 70.9 kg DO Deon Cordovahas Work Phone: [facility] 10-22-2021 04:14-0400 Inhaled oxygen concentration 21 % DO Deon Tashahas Work Phone: [facility] 10-21-2021 12:00-0400 Body temperature 98.1 [degF] DO Deon Tashahas Work Phone: [facility] 10-21-2021 12:00-0400 Diastolic blood pressure 73 mm[Hg] DO Deon Ramoss Work Phone: [facility] 10-21-2021 12:00-0400 Heart rate 76 /min DO Deon Ramoss Work Phone: [facility] 10-21-2021 12:00-0400 Respiratory rate 18 /min DO Deon Braxton Work Phone: [facility] 10-21-2021 12:00-0400 SaO2% (BldA) [Mass fraction] 95 % DO Deon Ramoss Work Phone: [facility] 10-21-2021 12:00-0400 Systolic blood pressure 128 mm[Hg] DO Deon Braxton Work Phone: [facility] 10-21-2021 06:00-0400 Body weight 99.9 kg DO Deon Braxton Work Phone: [facility] 10-21-2021 02:05-0400 Inhaled oxygen concentration 21 % DO Deon Braxton Work Phone: [facility] 10-19-2021 11:00-0400 Body height 182.88 cm DO Deon Braxton Work Phone: [facility] 10-18-2021 15:37-0400 Inhaled oxygen flow rate 6 L/min DO Deon Braxton Work Phone: [facility] 10-18-2021 13:19-0400 Body mass index (BMI) [Ratio] 29.8 kg/m2 DO Deon Ramoss Work Phone: [facility] 10-12-2021 10:00-0400 Body height 177.8 cm Reddy Brandt Other [employer] Other 10-12-2021 10:00-0400 Body mass index (BMI) [Ratio] 32.28 kg/m2 Reddy Brandt Other [employer] Other 10-12-2021 10:00-0400 Body weight 102.06 kg Reddy Brandt Other [employer] Other 10-06-2021 14:15-0400 Body height 177.8 cm Pako Aguilar Other [employer] Other 10-06-2021 14:15-0400 Body mass index (BMI) [Ratio] 32.28 kg/m2 Pako Aguilar Other [employer] Other 10-06-2021 14:15-0400 Body temperature 97.3 [degF] Pako Aguilar Other [employer] Other 10-06-2021 14:15-0400 Body weight 102.06 kg Pako Aguilar Other [employer] Other 10-06-2021 14:15-0400 Diastolic blood pressure 73 mm[Hg] Pako Aguilar Other [employer] Other 10-06-2021 14:15-0400 Systolic blood pressure 127 mm[Hg] Pako Aguilar Other [employer] Other 09-08-2021 15:30-0400 Body height 177.8 cm Pako Aguilar Other [employer] Other 09-08-2021 15:30-0400 Body temperature 98.1 [degF] Pako Aguilar Other [employer] Other 09-08-2021 15:30-0400 Diastolic blood pressure 73 mm[Hg] Pako Aguilar Other [employer] Other 09-08-2021 15:30-0400 Systolic blood pressure 149 mm[Hg] Pako Aguilar Other [employer] Other Encounters Encounter Date Encounter Type Care Provider Facility Start: 04-13-2023 [facility] Comment on above: 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, with long-term current use of insulin ([facility]) Start: 04-12-2023 End: 04-12-2023 ambulatory TERRY LOCK [facility] Start: 04-12-2023 Encounter for preprocedural cardiovascular examination TERRY LOCK [facility] Start: 04-12-2023 End: 04-12-2023 Office outpatient visit 25 minutes Terry Lock ASSISTANT ACCOUNT MANAGER-METER TESTER POLYPHASE Work Phone: [facility] Comment on above: Preop cardiovascular exam (Primary Dx); Coronary artery disease involving big sandy coronary artery of big sandy heart without angina pectoris; Ischemic cardiomyopathy; Chronic systolic congestive heart failure ([facility]); Apical mural thrombus; Essential (primary) hypertension; Cardiac defibrillator in place- [employer]; Mixed hyperlipidemia Start: 04-12-2023 End: 04-12-2023 Patient encounter status Terry Lock ASSISTANT ACCOUNT MANAGER-METER TESTER POLYPHASE Work Phone: [employer] Work Phone: Start: 04-05-2023 End: 04-06-2023 ambulatory YOVANNY CALHOUN [facility] Start: 04-03-2023 End: 04-03-2023 ambulatory Dung Serna Other [employer] Other Start: 04-03-2023 Telephone encounter Dung Serna [facility] Start: 03-22-2023 End: 03-22-2023 ambulatory YOVANNY CALHOUN Not Available Start: 03-22-2023 End: 03-22-2023 ambulatory YOVANNY Michael CALHOUN Not Available Start: 03-07-2023 End: 03-07-2023 ambulatory YOVANNY CALHOUN Not Available Start: 01-11-2023 End: 01-11-2023 ambulatory Ghanshyam Kaye Other [employer] Other Start: 01-11-2023 Telephone encounter Ghanshyam Kaye [facility] Start: 12-05-2022 End: 12-05-2022 ambulatory Ghanshyam Kaye Other [employer] Other Start: 12-05-2022 Office outpatient vi sit 15 minutes Ghanshyam Kaye [facility] Start: 10-05-2022 Office outpatient ne w 30 minutes Dunghilario Serna [facility] Start: 10-05-2022 End: 10-05-2022 ambulatory Dung Serna [facility] [employer] Other Start: 08-02-2022 End: 08-02-2022 ambulatory Reddy Brandt Other [employer] Other Start: 08-02-2022 Office outpatient vi sit 15 minutes Reddy Brandt [facility] Start: 06-02-2022 End: 06-02-2022 ambulatory Reddy Brandt Other [employer] Other Start: 06-02-2022 Postop follow up vis it related to original px Reddy Brandt [facility] Start: 05-12-2022 End: 05-12-2022 ambulatory Reddy Brandt Other [employer] Other Start: 05-12-2022 Telephone encounter Reddy Brandt [facility] Start: 05-03-2022 End: 05-03-2022 ambulatory Reddy Brandt Facility:[facility] Start: 05-03-2022 End: 05-03-2022 ambulatory DO Deon Braxton Work Phone: [facility] Work Phone: Start: 05-03-2022 End: 05-03-2022 Patient encounter procedure DO Deon Braxton Work Phone: [facility] [address] Start: 04-28-2022 End: 04-28-2022 ambulatory Reddy Brandt Other [employer] Other Start: 04-28-2022 Office outpatient vi sit 15 minutes Reddy Brandt [facility] Start: 04-17-2022 End: 04-17-2022 ambulatory Reddy Brandt Other [employer] Other Start: 04-17-2022 Telephone encounter Reddy Brandt [facility] Start: 04-12-2022 End: 04-12-2022 ambulatory Reddy Brandt Other [employer] Other Start: 04-12-2022 Postop follow up vis it related to original px Reddy Karly [facility] Start: 03-15-2022 End: 03-15-2022 ambulatory Reddy Brandt Other [employer] Other Start: 03-15-2022 Office outpatient vi sit 15 minutes Reddy Brandt [facility] Start: 02-07-2022 End: 02-07-2022 ambulatory Ghanshyam Kaye Other [employer] Other Start: 02-07-2022 Office outpatient vi sit 15 minutes Ghanshyam Kaye [facility] Start: 02-03-2022 End: 02-03-2022 ambulatory Reddy Brandt Other [employer] Other Start: 02-03-2022 Postop follow up vis it related to original px Reddy Karly [facility] Start: 01-24-2022 End: 01-24-2022 ambulatory Reddy Brandt Other [employer] Other Start: 01-24-2022 Telephone encounter Reddy Gil [facility] Start: 01-20-2022 End: 01-20-2022 ambulatory Reddy Meehanley Other [employer] Other Start: 01-20-2022 Postop follow up vis it related to original px Reddy Karly [facility] Start: 01-16-2022 End: 01-16-2022 ambulatory Reddy Meehanley Other [employer] Other Start: 01-16-2022 Telephone encounter Reddy Gil Senior Product Development Scientist Start: 01-06-2022 End: 01-06-2022 ambulatory Reddy Meehanley Other [employer] Other Start: 01-06-2022 Postop follow up vis it related to original px Reddy Karly [facility] Start: 12-23-2021 End: 12-23-2021 ambulatory Reddy Brandt Other [employer] Other Start: 12-23-2021 Postop follow up vis it related to original px Reddy Karly [facility] Start: 12-20-2021 End: 12-21-2021 ambulatory Reddy Perez Karly Facility:[facility] Start: 12-20-2021 End: 12-20-2021 Discharged Recurring DO Deon Braxton Work Phone: [facility]-Infusion Therapy - O/P Start: 12-14-2021 End: 12-14-2021 ambulatory Reddy Brandt Other [employer] Other Start: 12-14-2021 Postop follow up vis it related to original px Reddy Karly [facility] Start: 12-12-2021 End: 12-12-2021 ambulatory Reddy Meehanley Other [employer] Other Start: 12-12-2021 Telephone encounter Reddy Karly [facility] Start: 12-09-2021 End: 12-09-2021 ambulatory Reddy Brandt Other [employer] Other Start: 12-09-2021 Postop follow up vis it related to original px Redyd Brandt [facility] Start: 11-29-2021 End: 11-29-2021 Evaluation and management of inpatient DO Deon Braxton Work Phone: [facility]-[address] [place] [address] Start: 11-29-2021 End: 11-29-2021 Admission to same day surgery center DO [facility]on Braxton [facility] [place] [facility] [place] Start: 11-28-2021 End: 11-28-2021 ambulatory Reddy Brandt Other [facility] [employer] Other Start: 11-28-2021 Postop follow up vis it related to original px Reddybryan Brandt [facility] Start: 11-21-2021 End: 11-21-2021 ambulatory Reddy Brandt Other [employer] Other Start: 11-21-2021 Telephone encounter Reddy MOE [facility] Start: 11-03-2021 End: 11-03-2021 ambulatory Deon Braxton Facility:[facility] Start: 11-03-2021 End: 11-03-2021 Admission to same day surgery center DO Deon Braxton [facility] [place] [facility] [place] Start: 11-02-2021 End: 11-02-2021 ambulatory Reddy Perez Karly [facility] [employer] Other Start: 11-02-2021 Postop follow up vis it related to original px Reddy Karly [facility] Start: 11-02-2021 End: 11-02-2021 Patient encounter procedure DO Deon Braxton Work Phone: [facility] Start: 11-01-2021 End: 11-01-2021 Emergency department patient visit Deon Braxton Facility:[facility] Start: 11-01-2021 End: 11-01-2021 Emergency department patient visit DO Deon Ramoss Work Phone: [facility]gency [facility] Start: 11-01-2021 End: 11-01-2021 ambulatory Reddy Brandt Other [employer] Other Start: 11-01-2021 Telephone encounter Reddy MOE [facility] Start: 10-31-2021 End: 10-31-2021 ambulatory Reddy Brandt Other [employer] Other Start: 10-31-2021 Postop follow up vis it related to original px Reddy Brandt [facility] Start: 10-21-2021 End: 10-27-2021 Evaluation and management of inpatient Ghanshyam Kaye Facility:[facility] Start: 10-21-2021 End: 10-27-2021 Evaluation and management of inpatient DO Deon Braxton Work Phone: [facility] Start: 10-18-2021 End: 10-21-2021 Evaluation and management of inpatient Reddy Brandt Facility:[facility] Start: 10-18-2021 End: 10-21-2021 Evaluation and management of inpatient DO Deon Braxton Work Phone: [facility] Start: 10-14-2021 End: 10-14-2021 Patient encounter procedure DO Deon Ramoss Work Phone: [facility] Start: 10-12-2021 End: 10-12-2021 ambulatory Reddy Brandt Other [employer] Other Start: 10-12-2021 Office outpatient vi sit 25 minutes Reddy Brandt [facility] Start: 10-10-2021 End: 10-10-2021 Patient encounter procedure DO Deon Braxton Work Phone: [facility]MRI [facility] [place] Start: 10-06-2021 End: 10-06-2021 Patient encounter procedure DO Deon Braxton Work Phone: [facility]-Lab [facility] [place] Start: 10-06-2021 End: 10-06-2021 ambulatory Reddy Brandt Other [employer] Other Start: 10-06-2021 Office outpatient vi sit 25 minutes Pako Aguilar [facility] Start: 10-06-2021 Telephone encounter Reddy [facility] Start: 09-29-2021 End: 09-29-2021 Patient encounter procedure DO Deon Braxton Work Phone: [facility]-Pacemaker Check Start: 09-26-2021 End: 09-26-2021 ambulatory Reddy Brandt Other [employer] Other Start: 09-26-2021 Telephone encounter Reddy [facility] Start: 09-21-2021 End: 09-21-2021 Patient encounter procedure DO Deon Braxton Work Phone: [facility] Start: 09-21-2021 ambulatory SALINA LEE Faci lity:[facility] Start: 09-09-2021 End: 09-10-[address] DEON BRAXTON Facility:[facility] Start: 09-09-2021 End: 09-10-2021 ambulatory SALINA LEE Facility:[facility] Start: 09-08-2021 End: 09-08-2021 ambulatory Pako Aguilar Other [employer] Other Start: 09-08-2021 Office outpatient vi sit [...] LEE Facility:[facility] Start: 02-28-2021 ambulatory DEON Ho lity:[facility] Start: 02-23-2021 End: 02-24-2021 ambulatory SALINA LEE Facility:[facility] Start: 02-22-2021 ambulatory DEON Ho lity:[facility] Start: 02-17-2021 End: 02-18-2021 ambulatory SALINA LEE Facility:[facility] Start: 02-09-2021 Encounter for preprocedural laboratory examination SALINA LEE [facility] Start: 02-08-2021 End: 02-12-2021 Evaluation and [...] Start: 01-11-2021 End: 01-11-2021 ambulatory DEON BRAXTON Facility:[facility] Start: 01-10-2021 End: 01-11-2021 ambulatory DEON BRAXTON Facility:[facility] Start: 12-08-2020 End: 12-09-[address] DEON [...] w/le ast 12 lds w/i&r Terry Lock ASSISTANT ACCOUNT MANAGER-METER TESTER POLYPHASE Work Phone: Start: 03-22-2023 Adult depression scr eening assessment Terry Lock ASSISTANT ACCOUNT MANAGER-METER TESTER [employer]YPHASE Work Phone: Start: 12-29-2022 Diabetic retinal eye exam Terry Lock ASSISTANT ACCOUNT MANAGER-METER TESTER POLYPHASE Work Phone: Start: 10-26-2022 Microalbumin [Mass/v olume] in Urine by Test strip Terry Lock ASSISTANT [facility]OUNT [facility] Work Phone: Start: 11-29-2021 Incision and drainag e of lower extremity DO Deon Braxton Work Phone: Start: 11-03-2021 Amputation of right lower limb DO Deon Braxton Work Phone: Start: 10-18-2021 Antibody screen Dung jones Comment on above: Result Comment: PERF ORMED BY: [place] [id number] [place] [address] PATHOLOGIST MESSAGE CLERK SESAR YOST M.D. Start: 10-18-2021 Amputation of [...] from Right Ankle Joint, Open Approach [facility] Aerobic microbial culture DO Deon Braxton Work [...] Td Vaccines (2 - Td or Tdap) [facility] Start: 04-12-2024 Adult BMI Screening Adult BMI Screening [facility] Start: 04-12-2024 Tobacco Screening Tobacco Screening [facility] Start: 03-22-2024 Depression Screening Depression Screening [facility] Start: 03-22-2024 Fall Risk Screening Fall Risk Screening [facility] Start: 12-30-2023 Glaucoma screening Diabetic Ophthalmology Exam [facility] Start: 11-29-2023 End: 11-29-2023 Patient encounter procedure 11/29/2023 9:00 AM EDT Office Visit [facility] Internal Medicine - Family Medicine [address] [facility] [place] [address] [facility] - Family Medicine Start: 11-24-2023 Medicare Annual Wellness Visit Medicare Annual Wellness Visit [facility] Start: 10-27-2023 Diabetic foot examination Diabetic Foot Exam [facility] Start: 10-27-2023 Urine screening for protein Urine Microalbumin [facility] Start: 11-29-2021 [facility] Start: 11-29-2021 [facility] Start: 11-29-2021 Incision and drainage of lower extremity OR I&D Exploration Upper/Lower Extremity (Right) [facility] Start: 11-29-2021 End: 11-29-2021 Admission to same day surgery center Below knee amputation [facility] [place] Start: 11-03-2021 [facility] Start: 11-03-2021 [facility] Start: 11-03-2021 Amputation of right lower limb OR Leg Amputation Above/Below (Right) [facility] Start: 11-03-2021 End: 11-03-2021 Admission to same day surgery center Departed Surgical Day Care [facility] [place] Start: 11-02-2021 End: 11-02-2021 Patient encounter procedure Departed Clinical [facility]-Pre-Surgical Testing Start: 11-01-2021 End: 11-01-2021 Emergency department patient visit Departed Emergency [facility]gency [facility] Start: 10-27-2021 [facility] Work Phone: Start: 10-21-2021 Hospital admission [facility] Work Phone: Start: 10-21-2021 Referral to clinical cloth cutter [facility] Work Phone: Start: 10-21-2021 [facility] Work Phone: Start: 10-18-2021 Referral to clinical cloth cutter [facility] Work Phone: Start: 10-18-2021 Detachment at Right Lower Leg, Mid, Open Approach Detachment at Right Lower Leg, Mid, Open Approach [facility] Start: 10-17-2021 [facility] Work Phone: Start: 10-14-1975 Adult BMI Follow Up Plan Adult BMI Follow Up Plan [facility] Patient Education [facility] Work Phone: Patient referral [facility] Work Phone: SARS-CoV-2 (COVID-19 ) N gene [Presence] in Respiratory specimen by MEREDITH with probe detection [facility] Work Phone: Immunizations Immunization Date Immunization Notes Care Provider Fa [facility] 03-12-2023 Covid-19,mrna, Lnp-s , Pf, 50mcg/0.5ml 12+ Terry Lock ASSISTANT ACCOUNT MANAGER-METER TESTER POLYPHASE Work Phone: [facility] 03-12-2023 Influenza Vaccine, Quadrivalent, Adjuvanted Terry Lock APRN-METER TESTER POLYPHASE Work Phone: [facility] 03-12-2023 RSV, mAb, nirsevimab-alip, 1 mL, to 24 months Terry Lock APRN-METER TESTER POLYPHASE Work Phone: [facility] 03-12-2023 RSV, recombinant, protein subunit RSVpreF, adjuvant reconstituted, 0.5 mL, PF Terry Lock ASSISTANT ACCOUNT MANAGER-METER TESTER POLYPHASE Work Phone: [facility] 06-14-2022 zoster vaccine recombinant Terry Lock ASSISTANT ACCOUNT MANAGER-METER TESTER POLYPHASE Work Phone: [facility] 04-15-2022 Covid-19, Mrna, Lnp- s, Bivalent, Pf, 50mcg/0.5ml or 25mcg/0.25ml Terry Lock ASSISTANT ACCOUNT MANAGER-METER TESTER POLYPHASE Work Phone: [facility] 04-15-2022 zoster vaccine recombinant Terry Lock ASSISTANT ACCOUNT MANAGER-METER TESTER POLYPHASE Work Phone: [facility] 04-11-2022 Influenza, High-dose , Quadrivalent Terry Lock ASSISTANT ACCOUNT MANAGER-METER TESTER POLYPHASE Work Phone: [facility] 03-01-2021 COVID-19 mRNA-1273 (Moderna) DO [facility] Work Phone: [facility] 03-01-2021 Seasonal, quadrivale nt, recombinant, injectable influenza vaccine, preservative free Terry Lock ASSISTANT ACCOUNT MANAGER-METER TESTER POLYPHASE Work Phone: [facility] 06-25-2020 COVID-19 mRNA-1273 (Moderna) DO [facility] Work Phone: [facility] 05-28-2020 COVID-19, mRNA, LNP- S, PF, 100mcg/0.5mL Dose Terry Lock ASSISTANT ACCOUNT MANAGER-METER TESTER POLYPHASE Work Phone: [facility] 05-25-2020 COVID-19, mRNA, LNP- S, PF, 100mcg/0.5mL Dose Terry Lock ASSISTANT ACCOUNT MANAGER-METER TESTER POLYPHASE Work Phone: [facility] 01-14-2020 influenza, seasonal, injectable Terry Lock ASSISTANT ACCOUNT MANAGER-METER TESTER POLYPHASE Work Phone: [facility] 12-30-2019 influenza, injectabl e, quadrivalent, preservative free Terry Lock ASSISTANT ACCOUNT MANAGER-METER TESTER POLYPHASE Work Phone: [facility] 04-07-2019 Influenza, injectabl e, [facility] [place] Canine Kidney, preservative free, quadrivalent Terry Lock ASSISTANT ACCOUNT MANAGER-METER TESTER POLYPHASE Work Phone: [facility] 12-31-2018 pneumococcal conjuga te vaccine, 13 valent Terry Lock ASSISTANT ACCOUNT MANAGER-METER TESTER POLYPHASE Work Phone: [facility] 01-23-2018 influenza, injectabl e, quadrivalent, contains preservative Terry Lock APRN-METER TESTER POLYPHASE Work Phone: [facility] 01-23-2018 influenza, injectabl e, quadrivalent, preservative free Terry Lock ASSISTANT ACCOUNT MANAGER-METER TESTER POLYPHASE Work Phone: [facility] 02-05-2017 influenza, injectabl e, quadrivalent, preservative free Terry Lock ASSISTANT ACCOUNT MANAGER-METER TESTER POLYPHASE Work Phone: [facility] 02-05-2017 pneumococcal conjuga te vaccine, 13 valent Terry Lock APRN-METER TESTER POLYPHASE Work Phone: [facility] 01-14-2017 influenza, injectabl e, quadrivalent, contains preservative Terry Lock APRN-METER TESTER POLYPHASE Work Phone: [facility] 01-14-2016 tetanus toxoid, redu joseph diphtheria toxoid, and acellular pertussis vaccine, adsorbed Terry Lock ASSISTANT ACCOUNT MANAGER-METER TESTER POLYPHASE Work Phone: [facility] 01-02-2016 influenza virus vacc ine, unspecified formulation Terry Lock APRN-METER TESTER POLYPHASE Work Phone: [facility] 08-13-2015 zoster vaccine, live Terry Lock APRN-METER TESTER POLYPHASE Work Phone: [facility] 12-22-2014 influenza, seasonal, injectable, preservative free Terry Lock ASSISTANT ACCOUNT MANAGER-METER TESTER POLYPHASE Work Phone: [facility] 01-26-2014 pneumococcal conjuga te vaccine, 13 valent Terry Lock ASSISTANT ACCOUNT MANAGER-METER TESTER POLYPHASE [facility] 01-12-2014 influenza, seasonal, injectable Terry Lock ASSISTANT ACCOUNT MANAGER-METER TESTER POLYPHASE [facility] Phone: [facility] 01-12-2014 Seasonal trivalent influenza vaccine, adjuvanted, preservative free Terry Lock ASSISTANT ACCOUNT MANAGER-METER TESTER POLYPHASE Work Phone: [facility] 09-17-2012 pneumococcal polysaccharide vaccine, 23 valent Terry Lock ASSISTANT ACCOUNT MANAGER-METER TESTER POLYPHASE Work Phone: [employer] 09-17-2012 pneumococcal vaccine , unspecified formulation Terry Lock ASSISTANT ACCOUNT MANAGER-METER TESTER POLYPHASE Work Phone: [facility] [employer] [facility] Payers Date Payer Category Payer Medicare [id number] 2023 Medicare ANTHEM MEDICARE ANTHEM MEDICARE ADVANTAGE [id number] 2023-Present [phone] [address] [place] [address] [id number]. [id number] 2022 Medicare [id number] 2021 Medicare [id number] 2021 Self-pay [id number] 2021 Unknown 1959 Medicare [id number] 2.16.840.1.438982.19 1957 Unknown [id number] 2.16.840.1.803135.3.579.2.196 1957 Unknown [id number] 2.16.840.1.409415.3.579.2.196 1957 Unknown [id number] 2.16.840.1.164948.3.579.2.196 1957 Unknown [id number] 2.16.840.1.108078.3.579.2.196 1957 Unknown [id number] 2.16.840.1.454139.3.579.2.593 1957 Unknown [id number] 2.16.840.1.332344.3.579.2.593 1957 Unknown [id number] 2.16.840.1.918542.3.579.2.593 1957 Unknown [id number] 2.16.840.1.348775.3.579.2.593 1957 Unknown [id number] 2.16.840.1.849536.3.579.2.593 1957 Unknown [id number] 2.16.840.1.327543.3.579.2.593 1957 Unknown [id number] 2.16.840.1.982315.3.579.2.593 1957 Unknown [id number] 2.16.840.1.287095.3.579.2.593 1957 Unknown [id number] 2.16.840.1.556629.3.579.2.593 1957 Unknown [id number] 2.16.840.1.951775.3.579.2.593 1957 Unknown [id number] 2.16.840.1.626194.3.579.2.593 1957 Unknown [id number] 2.16.840.1.865233.3.579.2.593 1957 Unknown [id number] 2.16.840.1.130196.3.579.2.593 1957 Unknown [id number] 2.16.840.1.187847.3.579.2.593 1957 Unknown [id number] 2.16.840.1.861667.3.579.2.593 1957 Unknown [id number] 2.16.840.1.214754.3.579.2.593 1957 Unknown [id number] 2.16.840.1.111006.3.579.2.593 1957 Unknown [id number] 2.16.840.1.061065.3.579.2.59 1957 Unknown [id number] 2.16.840.1.437767.3.579.2.59 1957 Unknown [id number] 2.16.840.1.245683.3.579.2.59 1957 Unknown [id number] 2.16.840.1.937127.3.579.2. 1957 Unknown [id number] 2.16.840.1.390276.3.579.2.593 1957 Unknown [id number] 2.16.840.1.738242.3.579.2.59 1957 Unknown [id number] 2.16.840.1.142918.3.579.2.593 1957 Unknown [id number] 2.16.840.1.934394.3.579.2.59 1957 Unknown [id number] 2.16.840.1.132955.3.579.2.593 1957 Unknown [id number] 2.16.840.1.947654.3.579.2. 1957 Unknown [id number] 2.16.840.1.677404.3.579.2.59 1957 Unknown [id number] 2.16.840.1.113716.3.579.2.59 1957 Unknown [id number] 2.16.840.1.728556.3.579.2.593 1957 Unknown [id number] 2.16.840.1.594643.3.579.2.59 1957 Unknown [id number] 2.16.840.1.291992.3.579.2.593 1957 Unknown [id number] 2.16.840.1.085936.3.579.2.59 1957 Unknown [id number] 2.16.840.1.657485.3.579.2.59 1957 Unknown [id number] 2.16.840.1.517269.3.579.2. 1957 Unknown [id number] 2.16.840.1.347375.3.579.2. 1957 Unknown [id number] 2.16.840.1.529230.3.579.2. 1957 Unknown [id number] 2.16.840.1.598122.3.579.2. 1957 Unknown [id number] 2.16.840.1.755059.3.579.2. 1957 Unknown [id number] 2.16.840.1.999842.3.579.2. 1957 Unknown [id number] 2.16.840.1.320321.3.579.2. 1957 Unknown [id number] 2.16.840.1.894468.3.579.2.59 1957 Unknown [id number] 2.16.840.1.878019.3.579.2. 1957 Unknown [id number] 2.16.840.1.464549.3.579.2.59 1957 Unknown [id number] 2.16.840.1.376664.3.579.2.593 1957 Unknown [id number] 2.16.840.1.196408.3.579.2.593 1957 Unknown [id number] 2.16.840.1.363304.3.579.2.593 1957 Unknown [id number] 2.16.840.1.939670.3.579.2.593 1957 Unknown [id number] 2.16.840.1.037103.3.579.2.593 1957 Unknown [id number] 2.16.840.1.163969.3.579.2.593 1957 Unknown [id number] 2.16.840.1.515111.3.579.2.593 1957 Unknown [id number] 2.16.840.1.725200.3.579.2.593 1957 Unknown [id number] 2.16.840.1.248306.3.579.2.593 1957 Unknown [id number] 2.16.840.1.474756.3.579.2.593 1957 Unknown [id number] 2.16.840.1.166912.3.579.2.593 1957 Unknown [id number] 2.16.840.1.493288.3.579.2.593 1957 Unknown [id number] 2.16.840.1.682039.3.579.2.593 1957 Unknown [id number] 2.16.840.1.128408.3.579.2.593 1957 Unknown [id number] 2.16.840.1.137913.3.579.2.1259 1957 Unknown [id number] 2.16.840.1.624686.3.579.2.1259 1957 Unknown [id number] 2.16.840.1.282658.3.579.2.1259 1957 Unknown [id number] 2.16.840.1.409161.3.579.2.1286 1957 Unknown [id number] 2.16.840.1.216183.3.579.2.1286 Unknown [facility] [id number] Unknown [facility] [id number] Unknown [id number] 2.16.840.1.601595.3.579.2.531 Unknown [id number] 2.16.840.1.185512.3.579.2.531 Unknown [id number] 2.16.840.1.465419.3.579.2.531 Unknown [id number] 2.16.840.1.330592.3.579.2.531 Unknown [id number] 2.16.840.1.075673.3.579.2.531 Unknown [id number] 2.16.840.1.283083.3.579.2.531 Unknown [id number] 2.16.840.1.867443.3.579.2.531 Unknown [id number] 2.16.840.1.077441.3.579.2.531 Unknown [id number] 2.16.840.1.693986.3.579.2.531 Social History Date Type Detail Facility Unknown if ever smoked [facility] [employer] Other Start: 04-11-2022 End: 04-12-2023 Sex Assigned At [facility] Start: 10-19-2021 End: 01-18-2022 Tobacco smoking status NHIS Never smoked tobacco (finding) [facility] Start: 1955 Sex Assigned At Male [facility] Start: 01-18-2022 Tobacco use and exposure Smokeless tobacco non-user [facility] Start: 04-12-2023 Alcohol intake Current drinker of alcohol (finding) [facility] Start: 04-11-2022 End: 04-12-2023 History of Social function [facility] Do you belong to any clubs or organizations such as gnosticism groups, unions, fraternal or athletic groups, or school groups? No [facility] Are you now , , , , never or living with a partner? [facility] How often to you hav e a drink containing alcohol? 2-4 times a month [facility] How many standard dr inks containing alcohol do you have on a typical day? 1 or 2 [facility] How often do you hav e 6 or more drinks on 1 occasion? Never [facility] How hard is it for y ou to pay for the very basics like food, housing, medical care, and heating Somewhat hard [facility] Adolescent depressio n screening assessment 0 [facility] Do you feel stress - tense, restless, nervous, or anxious, or unable to sleep at night because your mind is troubled all the time - these days [OSQ] Not at all [facility] Start: 04-11-2022 Education 21 [facility] Start: 09-10-2019 Alcohol Comment social [facility] Start: 1955 Sex Assigned At Not on file [facility] Medical Equipment Procedure Code Equipment Code Equipment Origin al Text Equipment Identifier Dates Gft Hmn Tiss 250 mg Amniofill - [id number] - [id number] Start: 12-27-2018 Gft Sft Tis Matr istem - [id number] - [id number] Start: 01-27-2019 Tiss Grafix Prim e 3x4cm - [id number] - [id number] Start: 09-15-2019 Evera Mri Xt Vr Defibrillator [id number] Start: 07-13-2015 Sprint Quattro S ecure Mri [id number] Start: 07-13-2015 Tissue Epifix 2x 4 Cm - [id number] - [id number] Start: 12-27-2018 USE DIRECTED FOUR TIMES DAILY [id number] Start: 08-07-2022 Goals Date Patient Goal Desired [...] goal: Pt plans to discharge home with [facility]. Functional Status Date Assessment Result Facility 10-27-2021 Functional status Patient is Pro gressing Toward Baseline [facility] Work Phone: 10-21-2021 Functional status Patient is Pro gressing Toward Baseline [facility] Work Phone: 10-18-2021 Functional status Patient at Baseline [facility] Work Phone: Mental Status Date Assessment Result Facility 10-27-2021 Cognitive function Cognitive Sta tus Patient at Baseline [facility] Work Phone: 10-21-2021 Cognitive function Cognitive Sta tus Patient is Progressing Toward Baseline [facility] Work Phone: 10-18-2021 Cognitive function Cognitive Sta tus Patient at Baseline [facility] Work Phone: Clinical Notes 01-05-2021 to 04-12-2023 Terry Lock, KRUNAL-METER TESTER POLYPHASE - 04/12/2023 11:30 AM Sue High LPN [...] arthropathy, with long-term current use of insulin ([facility]) Chronic systolic congestive heart failure ([facility]) Coronary artery disease involving big sandy coronary artery of big sandy heart without angina pectoris Hearing loss Personal history of colonic polyps Colon polyps Diverticulosis large intestine w/o perforation or abscess w/o bleeding Chronic obstructive pulmonary disease ([facility]) 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 Gastroesophageal reflux disease with esophagitis without hemorrhage Stage 3b chronic kidney disease ([facility]) Subepithelial esophageal mass Sarcoidosis Diabetic retinopathy ([facility]) Obstructive sleep apnea syndrome Diabetic neuropathy ([facility]) Bilateral sensorineural hearing loss Unilateral complete AKA, right ([facility]) Allergies Allergen Reactions Doxycycline Other reaction(s): Chest Pain Levofloxacin Other reaction(s): Chest Pain Chlorpheniramine Dextromethorphan Hbr Itching Wkbaewgii-Nx-Yaaceoosyiuaw Guaifenesin Other reaction(s): Itching of skin Hydrocodone [...] morning. 90 tablet 1 flash glucose sensor (HotelQuicklySTYLE LELO 2 SENSOR) kit CHANGE EVERY 2 [...] involving left anterior descending (LAD) coronary artery ([facility]) 05/28/2015 Hyperlipidemia Interstitial lung disease ([facility]) Left ventricular failure ([facility]) MRSA (methicillin resistant staph aureus) culture positive Peptic ulceration Presence of automatic (implantable) cardiac defibrillator ST elevation (STEMI) myocardial infarction ([facility]) 2015 x 5 stents Stage 3b chronic kidney disease ([facility]) 04/22/2020 Unilateral complete AKA, right ([facility]) 03/31/2022 No data recorded No data recorded No data recorded Past Surgical History: Procedure Laterality Date ANKLE LIGAMENT RECONSTRUCTION Right 2020 APPLICATION AMNIOFILL Right 12/27/2018 Performed by Arlen Olguin DPM at [facility] APPLICATION WOUND VAC ( NOT done) Right 01/27/2019 Performed by Terry Hector DPM at [facility] CARDIAC DEFIBRILLATOR PLACEMENT 07/13/2015 [employer] COLONOSCOPY N/A 04/07/2020 Performed by Deon Braxton DO at [facility] DEBRIDEMENT FOOT EXCISION RT FOOT ULCER, APPLICATION BIOLOGIC SKIN GRAFT RT FOOT, APPLICATION OF WOUND VAC RT FOOT Right 01/27/2019 Performed by Terry Hector DPM at [facility] DEBRIDEMENT FOOT WITH APPLICATION OF GRAFIX Right 09/15/2019 Performed by Terry Hector DPM at [facility] ESOPHAGOGASTRODUODENOSCOPY N/A 05/19/2020 Performed by Deon Braxton DO at [facility] EXCISION 5TH METATARSAL Right 12/30/2018 Performed by Terry Hector DPM at [facility] FINGER SURGERY FOOT SURGERY 07/2020 [facility] Bilateral LAPAROSCOPIC CHOLECYSTECTOMY N/A 06/21/2020 Performed by Deon Justice MD at [facility] LENGTHENING TENDON RIGHT, PLANTAR FASCIOTOMY Right 09/15/2019 Performed by Terry Hector DPM at [facility] SKIN GRAFT LOWER EXTREMITY (APPLICATION OF BIOLOGIC SKIN GRAFT RT FOOT Right 01/27/2019 Performed by Terry Hector DPM at [facility] Family History Problem Relation [...] min Stress: No Stress Concern Present (04/11/2022) [place] [employer] - Occupational Stress Questionnaire Feeling of Stress : Not at all Social Connections: Moderately Integrated (04/11/2022) Social Connection and Isolation Panel [NHANES] Frequency of Communication with Friends and Family: Twice a week Frequency of Social Gatherings with Friends and Family: Twice a week Attends [employer] Services: 1 to 4 times per year [...] Verbalized understanding 2. Coronary artery disease involving big sandy coronary artery of big sandy heart without angina pectoris -aspirin, statin, beta-doreen 3. Ischemic cardiomyopathy -carvedilol, losartan, Aldactone 4. Chronic systolic congestive heart failure (CMS-HCC) -compensated 5. Apical mural thrombus -small, fixed on echocardiogram 04/2020 -has been maintained on Eliquis therapy 5 mg b.i.d. 6. Essential (primary) hypertension -well controlled 7. Cardiac defibrillator in place- [employer] -3.4 years of battery life as of [...] Referring Physician: Deon Braxton DO [address] [place] [address] FANNY Owens 04/12/23 1145 Office note faxed to Dr Lee for clearance documented in this encounter [facility] 12-05-2022 Evaluation note Encounter Date Diagnosis Assessment Notes Dec, Charcot foot due to diabetes mellitus (ICD-10 - E11.610) Dec, Status post transmetatarsal amputation of left foot (ICD-10 - Z89.432) as above, RX written. Dec, Hx of right BKA (ICD-10 - Z89.511) [facility] Other 07-06-2023 Evaluation note* Encounter Date Diagnosis [...] months. Sep, Peripheral polyneuropathy (ICD-10 - G62.9) [facility] Other 05-03-2023 Evaluation note* Encounter Date Diagnosis [...] elsewhere classified, subsequent encounter (ICD-10 - T81.31XD) [facility] Other 03-03-2023 Evaluation note* Encounter Date Diagnosis [...] this time. Patient is following up at [facility] for changes to prosthetic. I did recommend use of a cane to help offload some weight which may reduce his pain. Patient voiced understanding and states no further questions at this time. May, Other specified postprocedural states (ICD-10 - Z98.890) May, Postoperative wound dehiscence, initial encounter (ICD-10 - T81.31XA) [facility] Other 01-27-2023 Evaluation note* Encounter Date Diagnosis [...] wound dehiscence, initial encounter (ICD-10 - T81.31XA) [facility] Other 01-11-2023 Evaluation note* Encounter Date Diagnosis [...] wound dehiscence, initial encounter (ICD-10 - T81.31XA) [facility] Other 12-14-2022 Evaluation note* Encounter Date Diagnosis [...] wound dehiscence, initial encounter (ICD-10 - T81.31XA) [facility] Other 11-08-2022 Evaluation note* Encounter Date Diagnosis Assessment Notes Treatment Notes Treatment Clinical Notes Jan, Right below-knee amputee (ICD-10 - Z89.511) Proceed with K3 level, transtibial prosthesis, preparatory. Diligent monitoring of residual limb. Stop wearing prosthesis immediately if wound should worsen, develop erythema, increased pain, etc. Wearing schedule. [facility] Other 11-04-2022 Evaluation note* Encounter Date Diagnosis [...] wound dehiscence, initial encounter (ICD-10 - T81.31XA) [facility] Other 10-21-2022 Evaluation note* Encounter Date Diagnosis [...] wound dehiscence, initial encounter (ICD-10 - T81.31XA) [facility] Other 10-07-2022 Evaluation note* Encounter Date Diagnosis [...] wound dehiscence, initial encounter (ICD-10 - T81.31XA) [facility] Other 09-23-2022 Evaluation note* Encounter Date Diagnosis [...] wound dehiscence, initial encounter (ICD-10 - T81.31XA) [facility] Other 09-14-2022 Evaluation note* Encounter Date Diagnosis [...] wound dehiscence, initial encounter (ICD-10 - T81.31XA) [facility] Other 09-09-2022 Evaluation note* Encounter Date Diagnosis [...] infectious disease. Faxed wound center information to [phone] and left a voicemail. Dec, Other specified postprocedural states (ICD-10 - Z98.890) Dec, Postoperative wound dehiscence, initial encounter (ICD-10 - T81.31XA) [facility] Other 08-30-2022 History and physical note Author Reddy Brandt [facility] November 29, 2021 11:49am Note Date/Time November 29, 2021 11 :32am [facility] [address] [place] [address] Orthopedic Surgery H&P Signed Patient: Anai Goodman MR#: [id number] : 1955 Acct:[id number] Age/Sex: 66 / M Adm Date: 2 Loc: DE Room: Type: [facility] Attending Dr: Reddy Brandt DO Copies to: DO Reddy Rushing DO~ Date of Service: 11/29/2021 HPI History of Present Illness History of Present Illness: Anai is a 66-year-old male well-known to me from a right BKA for osteomyelitis who had wound dehiscence and revision BKA approximately month ago who presents to the ED with repeat wound dehiscence after a repeat fall. [facility] Vaccinated for COVID-19?: Yes Medical History (Updated [...] poor healing. 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 I have advised to follow all post-operative instructions in order to obtain the best outcome. Informed consent has been verbally affirmed and signed as indicated. Documented By: Reddy Brandt DO 11/29/21 1129 Signed By: <Electronically signed by Reddy Brandt DO> 11/29/[address] [facility] Work Phone: [phone]) 853-483908-29-2022 Evaluation note* Encounter Date Diagnosis Assessment Notes [...] remova l of sutures (ICD-10 - Z48.02) [facility] Other 08-03-2022 Evaluation note* Encounter Date Diagnosis [...] was in understanding and wishes to proceed. [facility] Other 08-01-2022 Evaluation note* Encounter Date Diagnosis [...] move forward with treatment at this time. [facility] Other 07-27-2022 Progress note Author Ghanshyam Kaye [facility] October 25, 2021 11:37pm Note Date/Time October 25, 2021 11:3 7pm [facility] [address] [place] [address] Physiatry(Rehab) Progress Note Signed Patient: Anai Goodman MR#: [id number] : 1955 Acct:[id number] Age/Sex: 66 / M Adm Date: 2 Loc: 5T Room: 6K8464-7 Type : ADM IN Attending Dr: Ghanshyam Kaye MD Copies to: ~ Date of Service: 10/25/2021 Subjective Subjective Narrative: Mr. Goodman is a 66 year old male who is admitted to [facility] inpatient rehab for strengthening s/p planned right BKA. Patient's past medical history significant for DM type II, CAD, NV, s/p pacemaker/defibrillator insertion, CKD, osteomyelitis of the [...] % (Auto) 69.1 Lymph % (Auto) 9.4 Lassen % (Auto) 14.5 Eos % (Auto) 6.7 Baso % (Auto) 0.3 Neut # (Auto) 4.0 Lymph # (Auto) 0.5 L Lassen # (Auto) 0.8 Eos # (Auto) 0.4 [...] MPV Neut % (Auto) Lymph % (Auto) Lassen % (Auto) Eos % (Auto) Baso % (Auto) Neut # (Auto) Lymph # (Auto) Lassen # (Auto) Eos # (Auto) Baso # [...] mg 10/21/21 17:51 Bisacodyl [address] 10/21/22 17:50 DAILY PRN Constipation Bumetanide 1 [...] 17:51 Docusate Enema 283 Mg/[address] 10/21/22 17:50 DAILY PRN Constipation Insulin Aspart 0 units 10/21/21 17:00 10/25/21 20:27 Insulin Aspart 300 Units/3 Ml Insuln.Pen SUBCUT 10/21/22 16:59 7 units TID.WM.[facility] Administration Protocol Insulin Aspart 0 units 10/21/21 17:00 10/25/21 20:30 Insulin Aspart 300 Units/3 Ml Insuln.Pen SUBCUT 10/21/22 16:59 Not Given TID.WITH.MEALS.[facility] Protocol Insulin Detemir 40 units 10/21/21 22:00 10/25/21 20:28 Insulin Detemir 300 Units/3 Ml Insuln.Pen SUBCUT 10/21/22 21:59 40 units QHS CB Administration Lactulose 30 gm 10/21/21 17:51 Lactulose 20 Gm/30 Ml Udc PO 10/21/22 17:50 DAILY PRN Constipation Losartan Potassium 25 mg 10/22/21 09:00 10/25/21 08:08 Losartan 25 Mg Tablet PO 10/22/22 08:59 25 mg QAM [facility] Administration Magnesium Oxide 400 mg 10/22/21 09:00 10/25/21 08:07 Magnesium Oxide 400 Mg Tablet PO 10/22/22 08:59 400 mg QAM [facility] Administration Multivitamins 1 tab 10/22/21 09:00 10/25/21 [...] equipment to enhance the patient's a functional alevism Ensure adequate nutrition and hydration Sleep: Denies any issues Pain: Denies any issues Discharge planning: Home with in 7 to 10 days. I spent greater than 25 minutes for services, including [id number] encounter with the patient, discussion of the case, plan of care, and exam; and [id number] activities, such as reviewing pertinent oracle database consultant documentation, recent therapy notes, laboratory and radiology studies, and discussionof case with care team including nursing, adult protective caseworker, and therapists. More than 50 % of time was spent on patient/family counseling or coordination ofcare. Documented By: Ghanshyam Kaye MD 10/25/212333 Signed By: <Electronically signed by Ghanshyam Kaye MD> 10/25/212336 [facility] Work Phone: 1([phone]) 223-287507-26-2022 Progress note Author Ghanshyam Kaye [facility] October 25, 2021 10:20am Note Date/Time October 23, 2021 11:5 7am [facility] [address] [place] [address] Physiatry(Rehab) Progress Note Signed Patient: Anai Goodman MR#: [id number] : 1955 Acct:[id number] Age/Sex: 66 / M Adm Date: 2 Loc: Room: [address] [place] [address] Type : ADM IN Attending Dr: Ghanshyam Kaye MD Copies to: ~ <Chante Narayan APRN - Last Filed: 10/23/21 11:57> Date of Service: 10/23/2021 Subjective <Chante Narayan APRN - Last Filed: 10/23/21 11:57> Subjective Narrative: Mr. Goodman is a 66 year old male who is admitted to [facility] inpatient rehab for strengthening s/p planned right BKA. Patient's past medical history significant for DM type II, CAD, NV, s/p pacemaker/defibrillator insertion, CKD, osteomyelitis of the [...] Asking about discharge, wants to talk to case technician about insurance coverage, but thinks he would [...] mg 10/21/21 17:51 Bisacodyl [address] 10/21/22 17:50 DAILY PRN Constipation Bumetanide 2 [...] 17:51 Docusate Enema 283 Mg/[address] 10/21/22 17:50 DAILY PRN Constipation Insulin Aspart 0 units 10/21/21 17:00 10/23/21 09:05 Insulin Aspart 300 Units/3 Ml Insuln.Pen SUBCUT 10/21/22 16:59 1 units TID.WM.HS CB Administration Protocol Insulin Aspart 0 units 10/21/21 17:00 10/23/21 09:06 Insulin Aspart 300 Units/3 Ml Insuln.Pen SUBCUT 10/21/22 16:59 4 units TID.WITH.MEALS.[facility] Administration Protocol Insulin Detemir 40 units 10/21/21 [...] mcg BID CB Administration Assessment/Plan <Chante Narayan, ASSISTANT ACCOUNT MANAGER - Last Filed: 10/23/21 11:57> Assessment/Plan (1) [...] equipment to enhance the patient's a functional alevism Ensure adequate nutrition and hydration Sleep: Denies any issues Pain: Denies any issues Discharge planning: Home with in 7 to 10 days. I spent greater than 15 minutes for services, including gfcp-ee-nybs encounter with the patient, discussion of the case, plan of care, and exam; and xunsfih-je-xegt activities, such as reviewing pertinent oracle database consultant documentation, recent therapy notes, laboratory and radiology studies, and discussion of case with care team including physician, nursing, adult protective caseworker, and therapists. More than 50 % of [...] the chart, including currentorders, allied health and oracle database consultant notes, labs/imaging and plan of care as above. Documented By: Chante Narayan APRN 10/23/21 1 150 Signed By: <Electronically signed by KRUNAL Narayan> 10/23/21 1157 <Electronically signed by Ghanshyam Kaye MD> 10/25/[address] [facility] Work Phone: 1([phone]) 225-521807-26-2022 History and physical note Author Ghanshyam Kaye [facility] October 25, 2021 9:36am Note Date/Time October 22, 2021 9:59 am [facility] [address] [place] [address] Physiatry (Rehab) H&P Signed Patient: Anai Goodman MR#: [id number] : 1955 Acct:[id number] Age/Sex: 66 / M Adm Date: 2 Loc: Room: 4T3347-7 Type : ADM IN Attending Dr: Ghanshyam Kaye MD Copies to: KRUNAL Mendez DO Joseph Riley, MD~ <Chante Narayan APRN - Last Filed: 10/22/21 10:24> Date of Service: 10/22/2021 HPI <Chante Narayan APRN - Last Filed: 10/22/21 10:24> The patient was seen and examined on: 10/21/21 History of Present Illness: Mr. Goodman is a 66 year old male who is admitted to [facility] inpatient rehab for strengthening s/p planned right BKA. Patient's past medical history significant for DM type II, CAD, NV, s/p pacemaker/defibrillator insertion, CKD, osteomyelitis of the [...] Bisacodyl (Bisacodyl 10 Mg Supp.Rect) [address] DAILY PRN PRN Reason: Constipation Stop: 10/21/22 17:50 Bumetanide (Bumetanide 2 Mg Tablet) 2 mg PO BID [facility] Stop: 10/21/22 20:59 Last Admin: 10/22/21 08:02 Dose: 2 mg Carvedilol (Carvedilol 6.25 Mg Tablet) 6.25 mg PO BID [facility] Stop: 10/21/22 20:59 Last Admin: 10/22/21 08:02 Dose: 6.25 mg Docusate Sodium (Docusate 100 Mg Capsule) 100 mg PO BID PRN PRN Reason: Constipation Stop: 10/21/22 17:50 Docusate Sodium (Docusate Enema 283 Mg/5 Ml Enema) [address] DAILY PRN PRN Reason: Constipation Stop: 10/21/22 17:50 Insulin Aspart (Insulin Aspart 300 Units/3 Ml Insuln.Pen) 0 units SUBCUT TID.WM.[facility]; Protocol Stop: 10/21/22 16:59 Last Admin: 10/22/21 08:01 Dose: 1 units Insulin Aspart (Insulin Aspart 300 Units/3 Ml Insuln.Pen) 0 units SUBCUT TID.WITH.MEALS.[facility]; Protocol Stop: 10/21/22 16:59 Last Admin: 10/22/21 08:01 Dose: 4 units Insulin Detemir (Insulin Detemir 300 Units/3 Ml Insuln.Pen) 40 units SUBCUT [facility] Stop: 10/21/22 21:59 Last Admin: 10/21/21 22:02 Dose: 40 units Lactulose (Lactulose 20 Gm/30 Ml Udc) 30 gm PO DAILY PRN PRN Reason: Constipation Stop: 10/21/22 17:50 Losartan Potassium (Losartan 25 Mg Tablet) [facility] [place]: 10/22/22 08:59 Last Admin: 10/22/21 08:05 Dose: 25 mg Magnesium Oxide (Magnesium Oxide 400 Mg Tablet) 400 mg PO QAM [facility] Stop: 10/22/22 08:59 Last Admin: 10/22/21 08:05 Dose: 400 mg Multivitamins (Multivitamin 1 Tab Tablet) 1 tab PO QAM [facility] Stop: 10/22/22 08:59 Last Admin: 10/22/21 08:05 Dose: 1 tab Nitroglycerin (Nitroglycerin 0.4 Mg Tab.Subl) 0.4 mg SUBLINGUAL DAILY PRN PRN Reason: Chest Pain Stop: 10/21/22 15:49 Rivaroxaban (Rivaroxaban 10 Mg Tablet) 10 mg PO DAILY [facility] Stop: 10/22/22 08:59 Last Admin: 10/22/21 08:06 Dose: 10 mg Fluticasone/Salmeterol (Fluticasone/Salmeterol 232-14 Mcg 60 Puff Inhaler) 1 puff INHALATION BID [facility] Stop: 10/21/22 20:59 Last Admin: 10/22/21 05:10 Dose: 1 puff Sennosides (Sennosides 8.6 Mg Tablet) 2 tab PO DAILY@12 PRN PRN Reason: If no BM in 2 days Stop: 10/22/22 11:59 Sodium Chloride (Sodium Chloride 0.9 % 10 Ml Syringe) 0 ml IV-PUSH PRN PRN PRN Reason: Flush Stop: 10/21/22 17:50 Spironolactone (Spironolactone 25 Mg Tablet) 25 mg PO QAM [facility] Stop: 10/22/22 08:59 Last Admin: 10/22/21 08:05 Dose: 25 mg Vitamin D (Cholecalciferol 125 Mcg (5,000 Units) Tablet) 250 mcg PO BID [facility] Stop: 10/21/22 20:59 Last Admin: 10/22/21 08:02 [...] % (Auto) 70.1 Lymph % (Auto) 10.0 Lassen % (Auto) 14.8 Eos % (Auto) 4.5 Baso % (Auto) 0.6 Neut # (Auto) 4.6 Lymph # (Auto) 0.7 L Lassen # (Auto) 1.0 H Eos # (Auto) [...] MPV Neut % (Auto) Lymph % (Auto) Lassen % (Auto) Eos % (Auto) Baso % (Auto) Neut # (Auto) Lymph # (Auto) Lassen # (Auto) Eos # (Auto) Baso # [...] 14 days Expected Discharge Destination: Home Rehabilitation [facility]: .4 Primary Diagnosis: Right BKA Patient?s/Family?s [...] 24 hour daily monitoring and intervention from Clerk General Office as well as other consulting physicians including internal medicine as well as 24 hour daily linemarker nursing - for medical safe / optimal [...] oriented plan of care Assessment/Plan <Chante Winternory, ASSISTANT ACCOUNT MANAGER - Last Filed: 10/22/21 10:24> (1) Below [...] equipment to enhance the patient's a functional alevism Ensure adequate nutrition and hydration Sleep: Denies any issues Pain: Denies any issues Discharge planning: Home with in 7 to 10 days. I spent greater than 30 minutes for services, including idwv-gw-ovhk encounter with the patient, discussion of the case, plan of care, and exam; and lbtoslj-io-tjal activities, such as reviewing pertinent oracle database consultant documentation, recent therapy notes, laboratory and radiology studies, and discussion of case with care team including physician, nursing, adult protective caseworker, and therapists. More than 50 % of [...] Allied health note review, nursing note review, oracle database consultant note review, discussion with nursing and [...] chart, including current orders, allied health and oracle database consultant notes, labs/imaging and performed rosado elements of exam and I formulated the plan of care and facilitated the medical decision making and confirmed the nurse practitioner note, as above Documented By: Chante Narayan APRN 10/22/21 0 949 Signed By: <Electronically signed by KRUNAL Narayan> 10/22/21 1024 <Electronically signed by Ghanshyam Kaye MD> 10/25/[address] [facility] Work Phone: 1(446) 348-208007-24-2022 Progress note Author Bronwyn Alegre [facility] October 23, 2021 3:11pm Note Date/Time October 23, 2021 3:11 pm [facility] [address] [place], [place] [id number] Hospitalist Progress Note Signed Patient: Anai Goodman MR#: [id number] : 1955 Acct:[id number] Age/Sex: 66 / M Adm Date: 2 Loc: Room: 6Q8443-9 Type : ADM IN Attending Dr: Ghanshyam [...] mg 10/21/21 17:51 Bisacodyl [address] 10/21/22 17:50 DAILY PRN Constipation Bumetanide 1 [...] 17:51 Docusate Enema 283 Mg/[address] 10/21/22 17:50 DAILY PRN Constipation Insulin Aspart 0 units 10/21/21 17:00 10/23/21 13:13 Insulin Aspart 300 Units/3 Ml Insuln.Pen SUBCUT 10/21/22 16:59 2 units TID.WM.[facility] Administration Protocol Insulin Aspart 0 units 10/21/21 17:00 10/23/21 13:14 Insulin Aspart 300 Units/3 Ml Insuln.Pen SUBCUT 10/21/22 16:59 5 units TID.WITH.MEALS.[facility] Administration Protocol Insulin Detemir 40 units 10/21/21 22:00 10/22/21 20:27 Insulin Detemir 300 Units/3 Ml Insuln.Pen SUBCUT 10/21/22 21:59 40 units QHS CB Administration Lactulose 30 gm 10/21/21 17:51 Lactulose 20 Gm/30 Ml Udc PO 10/21/22 17:50 DAILY PRN Constipation Losartan Potassium 25 mg 10/22/21 09:00 10/23/21 09:07 Losartan 25 Mg Tablet PO 10/22/22 08:59 25 mg QAM [facility] Administration Magnesium Oxide 400 mg 10/22/21 09:00 10/23/21 09:07 Magnesium Oxide 400 Mg Tablet PO 10/22/22 08:59 400 mg QAM [facility] Administration Multivitamins 1 tab 10/22/21 09:00 10/23/21 09:07 Multivitamin 1 Tab Tablet PO 10/22/22 08:59 1 tab QAM [facility] Administration Nitroglycerin 0.4 mg 10/21/21 15:50 Nitroglycerin [...] Losartan, Spironolactone 2.? GRACY on CPAP 3. [id number]-W5l 7.3, continue detemir, SSI 4. CKD 3?trend [...] PCP and out patient providers to obtain [facility] record entirely to follow up on illnesses, symptoms, abnormal findings that I have and have not addressed duringthis encounter and hospitalization in out patient setting. Documented By: Bronwyn Alegre MD 10/23/21 1509 Signed By: <Electronically signed by Bronwyn Alegre MD> 10/23/[address] [facility] Work Phone: 1([phone]) 338-841707-24-2022 Consult note Author Bronwyn Alegre [facility] October 23, 2021 7:04am Note Date/Time October 22, 2021 4:18 pm [facility] [address] [place] [address] Hospitalist Consult Note Signed Patient: Anai Goodman MR#: [id number] : 1955 Acct:[id number] Age/Sex: 66 / M Adm Date: 2 Loc: Room: [address] [place] [address] Type : ADM IN Attending Dr: Ghanshyam [...] negative unless noted below or in HPI [facility] Attestation Statement: The following information was [...] mg 10/21/21 17:51 Bisacodyl [address] 10/21/22 17:50 DAILY PRN Constipation Bumetanide 2 [...] 17:51 Docusate Enema 283 Mg/[address] 10/21/22 17:50 DAILY PRN Constipation Insulin Aspart 0 units 10/21/21 17:00 10/22/21 12:45 Insulin Aspart 300 Units/3 Ml Insuln.Pen SUBCUT 10/21/22 16:59 2 units TID.WM. CB Administration Protocol Insulin Aspart 0 units 10/21/21 17:00 10/22/21 12:46 Insulin Aspart 300 Units/3 Ml Insuln.Pen SUBCUT 10/21/22 16:59 2 units TID.WITH.MEALS.[facility] Administration Protocol Insulin Detemir 40 units 10/21/21 22:00 10/21/21 22:02 Insulin Detemir 300 Units/3 Ml Insuln.Pen SUBCUT 10/21/22 21:59 40 units QHS BC Administration Lactulose 30 gm 10/21/21 17:51 Lactulose [...] % (Auto) 70.1, Lymph % (Auto) 10.0, Lassen % (Auto) 14.8, Eos % (Auto) 4.5, Baso % (Auto) 0.6, Neut # (Auto) 4.6, Lymph # (Auto) 0.7 L, Lassen # (Auto) 1.0 H, Eos # (Auto) [...] Losartan, Spironolactone 2.? GRACY on CPAP 3. [id number] 7.3, continue detemir, SSI 4. CKD 3?trend labs Documented By: ABDIRASHID Olmedo 2 1618 Signed By: <Electronically signed by ANP-SAUMYA Matias> 10/22/21 1658 <Electronically signed by Bronwyn Alegre MD> 10/23/21 0704 [facility] Work Phone: 1(262) 982-560207-22-2022 Progress note Author Rodriguez Loera [facility] October 21, 2021 8:37am Note Date/Time October 20, 2021 11:0 8am [facility] [address] [place] [address] Hospitalist Progress Note Signed Patient: Anai Goodman MR#: [id number] : 1955 Acct:[id number] Age/Sex: 66 / M Adm Date: 2 Loc: 4N Room: [address] [place] [address] Type : ADM IN Attending Dr: Reddy [...] Lactated Ringers IV 10/18/22 07:29 Not Given .[id number] CB Insulin Aspart 0 units 10/18/21 08:00 [...] signed by Rodriguez Loera MD> 10/21/21 0837 [facility] Work Phone: 1(127) 733-249307-21-2022 Progress note Author Rodriguez Loera [facility] October 20, 2021 8:45am Note Date/Time October 19, 2021 11:2 8am [facility] [address] [place] [address] Hospitalist Progress Note Signed Patient: Anai Goodman MR#: [id number] : 1955 Acct:[id number] Age/Sex: 66 / M Adm Date: 2 Loc: 4 Room: 2G5336-2 Type : ADM IN Attending Dr: Reddy [...] Lactated Ringers IV 10/18/22 07:29 75 mls/hr .[id number] CB Administration Insulin Aspart 0 units 10/18/21 [...] signed by Rodriguez Loera MD> 10/20/21 0845 [facility] Work Phone: 1(944) 750-348107-20-2022 Progress note Author Reddy Brandt [facility] October 19, 2021 12:11pm Note Date/Time October 19, 2021 12:1 1pm [facility] [address] [place] [address] Orthopedic Progress Note Signed Patient: Anai Goodman MR#: [id number] : 1955 Acct:[id number] Age/Sex: 66 / M Adm Date: 2 Loc: Room: [address] [place] [address] Type : ADM IN Attending Dr: Reddy [...] signed by Reddy Brandt DO> 10/19/[address] [facility] Work Phone: 1(286) 316-281207-20-2022 Consult note Author Stewart Lucio [facility] October 19, 2021 1:42am Note Date/Time October 19, 2021 1:11 am [facility] [address] [place] [address] Hospitalist Consult Note Signed Patient: Aani Goodman MR#: [id number] : 1955 Acct:[id number] Age/Sex: 66 / M Adm Date: 2 Loc: Room: 4A3687-2 Type : ADM IN Attending Dr: Reddy [...] negative unless noted in the HPI below [facility] Attestation Statement: The following information was [...] Lactated Ringers IV 10/18/22 07:29 75 mls/hr .[id number] CB Administration Cefazolin Sodium 1 gm in [...] Insuln.Pen SUBCUT 10/18/22 07:59 6 units TID.WM.HS [facility] Administration Protocol Insulin Aspart 0 units 10/18/21 17:00 10/18/21 23:37 Insulin Aspart 300 Units/3 Ml Insuln.Pen SUBCUT 10/18/22 16:59 Not Given TID.WM.HS [facility] Insulin Detemir 40 units 10/18/21 22:00 10/18/21 21:39 Insulin Detemir 300 Units/3 Ml Insuln.Pen SUBCUT 10/18/22 21:59 40 units QHS [facility] Administration Losartan Potassium 25 mg 10/19/21 09:00 Losartan 25 Mg Tablet PO 10/19/22 08:59 QAM [facility] Magnesium Oxide 400 mg 10/19/21 09:00 Magnesium Oxide 400 Mg Tablet PO 10/19/22 08:59 QAM [facility] Multivitamins 1 tab 10/19/21 09:00 Multivitamin 1 Tab Tablet PO 10/19/22 08:59 QAM [facility] Nitroglycerin 0.4 mg 10/18/21 15:44 Nitroglycerin 0.4 [...] 60 Puff Inhaler INHALATION 10/19/22 08:59 BID [facility] Sodium Chloride 0 ml 10/18/21 14:00 10/18/21 [...] signed by Stewart Lucio MD> 10/19/[address] [facility] Work Phone: 1(678) 833-948607-13-2022 Evaluation note* Encounter Date Diagnosis Assessment Notes [...] poor healing. I have advised against the snf use of narcotic pain medication. I have [...] osteomyelitis of right tibia (ICD-10 - M86.661) [employer] Other 07-07-2022 Evaluation note* Encounter Date Diagnosis Assessment Notes Treatment Notes Treatment Clinical Notes Sep, Other chronic osteomyelitis of right tibia (ICD-10 - M86.661) [employer] Other 07-07-2022 Evaluation note* Encounter Date Diagnosis [...] place his pacemaker into MRI mode. Anyway control systems technician was very helpful and she is [...] worse they are to call me WALT. [employer] Other 06-09-2022 Evaluation note* Encounter Date Diagnosis [...] to a suppressive dose at that time [employer] Other 11-23-2021 NoteChief Complaint Basal cell carcinoma [...] 03/03/2021 PATIENT : 1955 LOCATION OF PROCEDURE: [facility] SURGEON: Chirag Gutierrez DO INFORMED CONSENT: Obtained by and on file at [facility] CC: [Basal cell carcinoma left ear post [...] get a repeat audiogr (more content not included)...[facility]10-11-2021 NoteChief Complaint Open wound Left ear History of Present Illness PLANNED PROCEDURE: Excision and preparation of surgical site, complex plastics myocutaneous advancement flap tear of left ear defect DATE OF PROCEDURE: 01/11/2021 PATIENT : 1955 LOCATION OF PROCEDURE: [facility], SURGEON: Chirag Gutierrez DO INFORMED CONSENT: Obtained by and on file at [facility] CC: Basal cell carcinoma left ear HPI: [...] reconstruction amputation of le (more content not included)...[facility] 01-05-2021 NoteChief Complaint MOHs procedure to [...] Dr. Freed. Previous pathology by physician in [place] about 1 year ago. PMHx of multiple [...] This patient presented to the [facility] with a chief concern of skin cancer. [...] and corroborated preoperatively wit (more content not included)...[facility]10-06-2021 NoteClinical Information Procedure: Excision with frozen section left ear Pre-operative diagnosis: Basal cell carcinoma Outside pathology report from [facility] was received with accession number [id number]. SP Specimen A Skin of left ear, [...] skin without gross lesi (more content not included)...[facility] on above:Performed By: #### SPR ####[facility] (DEFAULT)[address] [place], [place] [address]Tmktwxlei summary Author Ghanshyam Kaye [facility] October 28, 2021 10:30am Note Date/Time October 27, 2021 1:34 pm [facility] [address] [place] [address] Discharge Summary Signed Patient: Anai Goodman MR#: [id number] : 1955 Acct:[id number] Age/Sex: 66 / M Adm Date: 2 Loc: Room: 0U0395-[address]: Ghanshyam Kaye MD Copies to: [...] year old male who was admitted to [facility] rehab[facility] strengthening s/p planned right BKA. His past medical history significant for DM type II, CAD, NV, s/p pacemaker/defibrillator insertion, CKD, osteomyelitis of the [...] Patient's was on Xarelto while inpatient. Per [facility] pharmacy , insurance co-pay would be over [...] year old male who was admitted to [facility] inpatient rehabfor strengthening s/p planned right BKA. His past medical history significant for DM type II, CAD, NV, s/p pacemaker/defibrillator insertion, CKD, osteomyelitis of the [...] Patient's was on Xarelto while inpatient. Per [facility] pharmacy , insurance co-pay would be over$120 [...] home prior. Your Home Health agency is [facility] ( ). They will usually contact you [...] them prior to your appointment. Instructions: Amputation, Bmupe-qjm-Rmeh (DC) Stand Alone Forms: Insulin Corrective Scale [...] signed by Ghanshyam Kaye MD> 10/28/21 1030 [facility] Work Phone: Evaluation noteNo [employer] Other Evaluation note* Diagnosis Onset Date Resolution Status Below knee amputation acute Type 2 diabetes mellitus acu te [facility] Work Phone: Evaluation note* Diagnosis [...] wound of skin acute Wound dehiscence acute [facility] Work Phone: Evaluation note* Diagnosis Onset Date Resolution Status Below knee amputation acute Dehiscence of wound of skin acute Wound dehiscence acute [facility] Work Phone: Evaluation noteNo assessment information available [facility] Work Phone: Evaluation note* Diagnosis Preop cardiovascular exam- Primary Pre-operative cardiovascular examination Coronary artery disease involving big sandy coronary artery of big sandy heart without angina pectoris Ischemic cardiomyopathy Other specified forms of chronic ischemic heart disease Chronic systolic congestive heart failure ([facility]) Apical mural thrombus Essential (primary) hypertension Unspecified essential hypertension Cardiac defibrillator in place- [employer] Automatic implantable cardiac defibrillator in situ Mixed hyperlipidemia documented in this encounter [facility] Interactive Simulations SystemEvaluation note* Diagnosis Type 2 diabetes mellitus with diabetic neuropathic arthropathy, with long-term current use of insulin ([facility]) documented in this encounter [employer] SystemsHistory general Narrative - Reported* Type Description Date Medical History DM1 Medical History HTN Medical History HYPERLIPEDEMIA Surgical History LEFT FOOT SURGERY WITH REMOVAL OF ALL FIVE TOES Surgical History heart cath with 5 stents placem ent Hospitalization History MRSA 2011 Hospitalization History [employer] Other Histuar general Narrative - Reported* Type Description Date Medical History DM1 Medical History HTN Medical History HYPERLIPEDEMIA Surgical History LEFT FOOT SURGERY WITH REMOVAL OF ALL FIVE TOES Surgical History heart cath with 5 stents placem ent Surgical History right transtibial be low-knee amputation, right fibular osteotomy 10/17/21 Hospitalization History MRSA 2011 Hospitalization History [facility] Other Hisglzi general Narrative - Reported* Type Description Date [...] Heart Hospitalization History see above surg. hx. [employer] Other InstructionsNot on filedocumented in this encounter [facility]Bo[facility] Interactive Simulations SystemInstructionsNot on filedocumented in this encounter [facility]Accept [facility] Summary Purpose Family History No Family History [...] yelitis of right tibia (M86.661) Referral Organization [facility] Referring Provider First Name [...] section and content) DATE CREATED AUTHOR 05/12/2020 [facility] DATE CREATED AUTHOR AUTHOR'S ORGANIZ ATION 05/26/2021 [facility] DATE CREATED AUTHOR AUTHOR'S ORGANIZ ATION 08/23/2021 [facility] DATE CREATED AUTHOR AUTHOR'S ORGANIZ ATION 11/02/2021 [facility] DATE CREATED AUTHOR AUTHOR'S ORGANIZ ATION 10/17/2022 [facility] DATE CREATED AUTHOR AUTHOR'S ORGANIZ ATION 03/23/2023 [facility] DATE CREATED AUTHOR AUTHOR'S ORGANIZ ATION 04/08/2023 [facility] DATE CREATED AUTHOR AUTHOR'S ORGANIZ ATION 04/15/2023 [facility] REASON FOR VISIT (unrecogniz ed section [...] MD Other Provider Active Mai Britton , EQUAL EMPLOYMENT OPPORTUNITY OFFICER-C Other Provider Active Christiano Evans MD Other [...] DO Referring Provider Active Darien Bailey , EQUAL EMPLOYMENT OPPORTUNITY OFFICER-C Attending Provider Activ e Team Status: Active [...] MD Other Provider Active Mai Britton , [employer] EM[employer]PPORT[employer]ITY OFFICER-C Other Provider Active Christiano Evans MD Other [...] DO Admit Provider, Attending Provide r Active As[employer] 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 [facility] [employer] [facility]. provides no warranty or guarantee of the accuracy or completeness of information in this document.
[2023-04-19 09:29] VITALS: BMI 29.2
[2023-04-19] MEDS: LACTATED RINGER'S SOLUTION 1,000 ML 50 ML IV (09:45)
[2023-04-19] MEDS: CEFAZOLIN SODIUM/DEXTROSE,ISO 2 GM/50 ML PIGGYBACK IV (11:17)
--- NOTE | 2023-04-19 11:26 | PM.ORONB ---
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 Hilton. Patient has had lateral ankle ulcer with presumed osteomyelitis for roughly a month. He does have history of right below-knee amputation which is done so for diabetic ulceration associated with infection. Slight local wound care his ulcer has not improved and MRI was concerning for osteomyelitis of the fibula. Due to his high risk for need for amputation I recommended surgical debridement with bone biopsy and possible allogenic skin substitute. Patient was educated of potential risks and benefits as well as that patient has multiple risk factors made him extremely complicated and the high risk for perioperative complication. All questions were answered to satisfaction. Intraoperative findings: wound over lateral left fibula measured 2.8 x 2.2 x 0.3 cm. The wound base was fibrogranular which probed to bone. Lateral cortical bone was relatively soft compared to the anterior and posterior cortex. All compromised and questionable bone was excised. Procedure in detail: Patient was identified in pre op and consent was reviewed. Correct side and site were identified and marked. Pre-op antibiotics were started. Patient was brought to OR suite and place on table in a supine position. General anesthesia was administered. Tourniquet applied. Operative extremity was prepped and draped in usual sterile fashion. Formal time-out was performed and the foot/ankle. Tourniquet was not inflated. the wound was excised in a 3-1 ellipse. Further dissection fully exposed the lateral fibular malleolus. An osteotome was used to remove the lateral cortex which was somewhat soft and osteopenic. All questionable tissue including bone was excised with osteotome, rongeurs and curettes. once all involved bone and a questionable bone was removed a pop or rasp was used to contour the fibula and further debride. Underlying bone was of normal quality and color. Surgical site was irrigated copiously. Then a clean rongeur was used to obtain a specimen from the fibula. the incision was then extended proximally and distally and meticulously undermined allowing the wound to be closed in a single layer without tension. Hemostasis was controlled on the field with pressure and elevation. Adaptic was then placed over the incision followed by black granular foam and wound VAC drape. A hole was cut into the drape and track pad was applied using the Prevena plus system. Suction was obtained at 125mmHg. multiple layers of cast padding were placed from the forefoot to the popliteal fossa followed by a layer Ezra wraps then an additional layer of cast padding and additional Ezra wraps. Capillary refill was brisk following the procedure the patient tolerated the procedure and anesthesia well. He was transported to recovery room with vital signs stable and brisk capillary refill to forefoot. postoperative plan: Discharge home under family's care Post op instructions provided verbally and written prescription(s) were placed in chart WBAT operative foot/ankle Keep dressing c/d/i and wound vac intact until f/u Follow-up in 4-7 days Implants: none Anesthesia: MAC and regional Surgeon: Heraclio Hernandez Pipeline Superintendent Division: Kenan Sethi Estimated blood loss (mL): 25 Pathology: other (bone from fibula) Condition: stable Disposition: PACU
[2023-04-19 13:08] VITALS: BP 133/67; PULSE 70; RESP 15; TEMP 36.2; O2SAT 97
--- NOTE | 2023-04-19 13:14 | XR_ITS ---
The [address] [address] Patient Name: ANAI PELAYO MRN: [id number] date: 1955 Sex: M Assigned Patient Location: [facility] Current Patient Location: Accession/Order Number: [id number] Exam Date: 04/19/2023 13:20 Report Date: 04/19/2023 14:02 At the request of: TREVA ZHAO Procedure: XR ankle LT min 3V EXAM: XR ankle LT min 3V HISTORY: postop xr pacu COMPARISON: 04/11/2023 TECHNIQUE: 3 views of the left ankle were obtained. FINDINGS: The study is significantly limited by the posterior mold. There is no apparent acute fracture or dislocation. The mortise is intact. A small focal erosion is seen along the lateral aspect of the distal fibula. Evaluation of the soft tissues for superficial also is limited. Diffuse soft tissue swelling laterally is noted. XR/XR ankle LT min 3V IMPRESSION: The study is limited by the posterior mold. Subtle erosion of the distal fibula laterally is again noted. Soft tissue swelling laterally is present. There is no evidence of an acute fracture or dislocation at this time. Electronically authenticated by: SALINA PATTEN Date: 04/19/2023 14:02
[2023-04-19 13:15] VITALS: BP 144/81; PULSE 73; RESP 20; O2SAT 98
== END 2023-04-19 13:45 | disposition home or self-care (01) ==
PROVIDERS: PCP Internal Medicine; Visit Provider Podiatrist Foot & Ankle Surgery
PROC: (CPT 11044; principal; 2023-04-19 10:10)
DX: L89.523 Pressure ulcer of left ankle, stage 3 (principal); I25.10 Atherosclerotic heart disease of native coronary artery without angina pectoris; I25.5 Ischemic cardiomyopathy; I50.22 Chronic systolic (congestive) heart failure; I51.3 Intracardiac thrombosis, not elsewhere classified; Z95.810 Presence of automatic (implantable) cardiac defibrillator; Z79.899 Other long term (current) drug therapy; Z79.01 Long term (current) use of anticoagulants; Z79.4 Long term (current) use of insulin; Z95.5 Presence of coronary angioplasty implant and graft; Z79.82 Long term (current) use of aspirin; I25.2 Old myocardial infarction; F32.A Depression, unspecified; E78.00 Pure hypercholesterolemia, unspecified; Z89.511 Acquired absence of right leg below knee; E11.610 Type 2 diabetes mellitus with diabetic neuropathic arthropathy; Z86.010 Personal history of colon polyps; J44.9 Chronic obstructive pulmonary disease, unspecified; K21.9 Gastro-esophageal reflux disease without esophagitis; N18.32 Chronic kidney disease, stage 3b; I13.0 Hypertensive heart and chronic kidney disease with heart failure and stage 1 through stage 4 chronic kidney disease, or unspecified chronic kidney disease; E11.319 Type 2 diabetes mellitus with unspecified diabetic retinopathy without macular edema; E11.51 Type 2 diabetes mellitus with diabetic peripheral angiopathy without gangrene; G47.33 Obstructive sleep apnea (adult) (pediatric); H90.3 Sensorineural hearing loss, bilateral
CPT/HCPCS: 11044; 36415; 73610; 88304; 88311; 97605; J0690; J2250; J2704; Q4197

== ENCOUNTER 2023-04-23 10:10 | Outpatient (OUT) | payer MEDICARE, SELFPAY | END 2023-04-23 10:11 | disposition home or self-care (01) | LOC: WC 10:10 | PROVIDERS: PCP Internal Medicine; Visit Provider Physician Assistant | DX: L89.523 Pressure ulcer of left ankle, stage 3 (principal) | CPT/HCPCS: 29445; A6213 ==

== ENCOUNTER 2023-05-01 09:31 | Outpatient (OUT) | payer MEDICARE, SELFPAY ==
--- OUTSIDE RECORDS SUMMARY | 2023-05-01 09:36 | XMS_ITS | CCD ---
Author Name Unknown Address [address] [facility] [address] [place] [address] Organization [facility] Care Team Providers Care Director Of Finance Name Role Phone DEON BRAXTON Primary Care Unavailable Chirag Gutierrez DO Attending Un available DEON BRAXTON Consulting Unavailable DEON BRAXTON Primary Care Unavailable Chirag Gutierrez DO Attending Un available DEON BRAXTON Consulting Unavailable DEON BRAXTON Primary Care Unavailable Chirag Gutierrez DO Attending Un available DEON BRAXTON Primary Care Unavailable Chirag Gutierrez [...] Other Provider MD Armando Hanks Other Provider [phone] DO Golden Whatley Other Provider MD Adi Feng Other Provider [phone] MD Letty Turpin Other Provider [phone] Polly ANP-BC Faviola Other Provider MD Brett Muñoz Other Provider [phone] MD Dennis Larson Other Provider MD Rodriguez Loera Other Provider MD Cuauhtemoc Ramos Other Provider MD Darien Maria Other Provider MD Stewart Lucio Other Provider MD Sonido Murillo Other Provider Reba, DRY PRESS OPERATOR HELPER-C Mai Vega Other Provider MD Christiano Evans [...] Unavailable DR DEON BRAXTON Primary Care Unavailable SALIAN LEE Consulting Unavailable SALINA LEE Attending Unavailable SALINA LEE Admitting Unavailable ENMANUEL MCKAY Consulting Unavailable ENMANUEL MCKAY Attending Unavailable ENMANUEL MCKAY Admitting Unavailable YUDONNA, DR CHAVARRIA Primary Care Unavailable BALJEET LEONG Consulting Unavailabl e CLOBALJEET SIERRA Attending Unavailabl e CLOUGHERTYBALJEET Admitting Unavailabl e YUHAS, DR CHAVARRIA Primary Care Unavailable YUDONNA, DR CHAVARRIA Primary Care Unavailable LEON, DR CLEMENTS Consulting Unavailable BLANK, DR CLEMENTS Attending Unavailable BLANK, DR CLEMENTS Admitting Unavailable CLOBALJEET SIERRA Attending Unavailabl e CLOUGHERTYBALJEET Admitting Unavailabl e YUHAS, DR CHAVARRIA Primary Care Unavailable BALJEET LEONG Admitting Unavailabl e YUHAS, DR CHAVARRIA Primary Care Unavailable BALJEET LEONG Attending Unavailabl e JESUS, SALINA Walker Attending Unavailable IRAIS, DR CHAVARRIA Primary Care Unavailable JESUS, SALINA Walker Consulting Unavailable SALINA LEE Admitting Unavailable JESUS, SALINA Walker Attending Unavailable IRAIS, DR CHAVARRIA Primary Care Unavailable SALINA LEE Admitting Unavailable JESUS, SALINA Walker Attending Unavailable YUDONNA, DR CHAVARRIA Primary Care Unavailable SALINA LEE Admitting Unavailable BALJEET LEONG Admitting Unavailabl e CLOUNAERTYBALJEET Attending Unavailabl e JAZIEL, DR ANAI Edmond Consulting Unavailable IRAIS, DR CHAVARRIA Primary Care Unavailable BALJEET LEONG Consulting Unavailabl e YUKEEGANS, DR CHAVARRIA Primary Care Unavailable SALINA LEE Attending Unavailable JAZIEL, DR ANAI Edmond Consulting Unavailable SALINA LEE Admitting Unavailable SALINA LEE Consulting Unavailable BALJEET LEONG Attending Unavailabl e BALJEET LEONG Admitting Unavailabl e WEST, DR ANAI Edmond Consulting Unavailable IRAIS, DR CHAVARRIA Primary Care Unavailable BALJEET LEONG O Consulting Unavailabl e CLOUGHERTYBALJEET Admitting Unavailabl e CLOUGHBALJEET DE JESUS O Consulting Unavailabl e CLOBALJEET SIERRA O Attending Unavailabl e YUDONNA, DR CHAVARRIA Primary Care Unavailable BALJEET LEONG Attending Unavailabl e CLOUGHERTYBALJEET O Admitting Unavailabl e YUHAS, DR CHAVARRIA Primary Care Unavailable BALJEET LEONG O Attending Unavailabl e YUKEEGANS, DR CHAVARRIA Primary Care Unavailable BALJEET LEONG O Admitting Unavailabl e YUHAS, DR CHAVARRIA Primary Care Unavailable HIGHLSALINA HURST Attending Unavailable HIGHLANDER, PETER D Admitting Unavailable YUHAS, DR CHAVARRIA Primary Care Unavailable [facility] Attending Unavailable SALINA LEE Admitting Unavailable CLOUNAERTYBALJEET Attending Unavailabl e CLOUGHERTYBALJEET Admitting Unavailabl e YUKEEGANS, DR CHAVARRIA Primary Care Unavailable CLOUNAERTY, BALJEET O Admitting Unavailabl e CLOUGHERTY, BALJEET O Attending Unavailabl e YUDONNA, DR CHAVARRIA Primary Care Unavailable CLOUGHERTY, BALJEET O Admitting Unavailabl e CLOUGHERTY, BALJEET O Attending Unavailabl e YUDONNA, DR CHAVARRIA Primary Care Unavailable YUDONNA, DR CHAVARRIA Primary Care Unavailable [facility], SALINA Walker Attending Unavailable [facility], SALINA Walker Admitting Unavailable HIGHLANDER, SALINA Walker Attending Unavailable TIETON, DR ANAI Edmond Consulting Unavailable [facility], SALINA Walker Admitting Unavailable YUHAS, DR CHAVARRIA Primary Care Unavailable [facility] Consulting Unavailable [facility] HURST Attending Unavailable [facility] HURST Admitting Unavailable YUHAS, DR CHAVARRIA Primary Care Unavailable ZIER, DR ARLEN Patel Consulting Unavailable [facility] Consulting Unavailable [facility] Attending Unavailable [facility] HURST Admitting Unavailable YUHAS, DR CHAVARRIA Primary Care Unavailable [facility], SALINA Walker Attending Unavailable [facility] HURST Admitting Unavailable YUHAS, DR CHAVARRIA Primary Care Unavailable [facility], SALINA Walker Attending Unavailable YUHAS, DR CHAVARRIA Primary Care Unavailable [facility], SALINA Walker Admitting Unavailable HIGHLANDER, SALINA Walker Attending Unavailable YUHAS, DR CHAVARRIA Primary Care Unavailable [facility] Consulting Unavailable [facility] Admitting Unavailable CLOUNAERTY, BALJEET Payan Attending Unavailabl e CLOBALJEET SIERRA Admitting Unavailabl e YUDONNA, DR CHAVARRIA Primary Care Unavailable CLOUNAERTYBALJEET O Admitting Unavailabl e CLOUGHERTY, BALJEET O Attending Unavailabl e YUDONNA, DR CHAVARRIA Primary Care Unavailable CLOUGHLIZA, BALJEET O Admitting Unavailabl e CLOUGHERTY, BALJEET O Attending Unavailabl e YUDONNA, DR CHAVARRIA Primary Care Unavailable YUDONNA, DR CHAVARRIA Primary Care Unavailable [facility] Attending Unavailable SALINA LEE Admitting Unavailable CLOUGHERTY, BALJEET O Admitting Unavailabl e CLOUGHERTY, BALJEET O Attending Unavailabl e YUDONNA, DR CHAVARRIA Primary Care Unavailable CLOUGHERTY, BALJEET O Admitting Unavailabl e CLOUGHERTYPARISDELONG O Attending Unavailabl e WEST, DR ANAI Edmond Consulting Unavailable YUHAS, DR CHAVARRIA Primary Care Unavailable CLOUNAERTY, BALJEET Payan Consulting Unavailabl e HIGHLANDERSALINA Attending Unavailable HIGHLARIS, SALINA Walker Admitting Unavailable YUHAS, DR CHAVARRIA Primary Care Unavailable CLOUGHERTY, BALJEET Payan Attending Unavailabl e CLOUGHERTY, BALJEET O Admitting Unavailabl e YUHAS, DR CHAVARRIA Primary Care Unavailable HIGHLANDER, SALINA Walker Attending Unavailable YUHAS, DR CHAVARRIA Primary Care Unavailable HIGHLANDERSALINA Consulting Unavailable HIGHLANDERSALINA Admitting Unavailable MARINOTERRY Osman Consulting Unavailable YUHAS, DR CHAVARRIA Primary Care Unavailable HIGHLANDER, SALINA Walker Attending Unavailable HIGHLARIS, SALINA Walker Admitting Unavailable YUHAS, DR CHAVARRIA Primary Care Unavailable CLOUNAERTY, BALJEET Payan Attending Unavailabl e CLOUGHERTY, BALJEET O Admitting Unavailabl e WEST, DR ANAI Edmond Consulting Unavailable CLOUGHERTY, BALJEET O Consulting Unavailabl e CLOUGHERTY, BALJEET Payan Attending Unavailabl e CLOUGHERTY, BALJEET O Admitting Unavailabl e ZIEBER, DR ARLEN Patel Consulting Unavailable YUHAS, DR CHAVARRIA Primary Care Unavailable CLOUGHERTY, BALJEET Payan Consulting Unavailabl e HIGHLANDER, SALINA Walker Attending Unavailable HIGHLANDER, SALINA Walker Admitting Unavailable ZIEBER, DR ARLEN Patel Consulting Unavailable YUHAS, DR CHAVARRIA Primary Care Unavailable HIGHLANDERSALINA Consulting Unavailable HIGHLANDER, SALINA Walker Attending Unavailable HIGHLANDER, SALINA Walker Admitting Unavailable WEST, DR ANAI Edmond Consulting Unavailable YUHAS, DR CHAVARRIA Primary Care Unavailable HIGHLANDERSALINA Consulting Unavailable JESUS, SALINA Walker Attending Unavailable HIGHLANDER, SALINA Walker Admitting Unavailable YUHAS, DR CHAVARRIA Primary Care Unavailable HIGHLANDERSALINA Consulting Unavailable YUHAS, DR CHAVARRIA Primary Care Unavailable HIGHLANDERSALINA Attending Unavailable HIGHLANDERSALINA Admitting Unavailable WEST, DR ANAI Edmond Consulting Unavailable HIGHLANDERSALINA Consulting Unavailable YUHAS, DR CHAVARRIA Primary Care Unavailable HIGHLANDER, SALINA Walker Attending Unavailable HIGHLANDER, SALINA Walker Admitting Unavailable WEST, DR ANAI Edmond Consulting Unavailable HIGHLANDERSALINA Consulting Unavailable ANAI MIRZA Unavailable YUHAS, DR CHAVARRIA Primary Care Unavailable HIGHLARIS, SALINA Walker Attending Unavailable HIGHLARIS, SALINA Walker Admitting Unavailable HIGHLANDER, SALINA Walker Attending Unavailable HIGHLANDER, SALINA Walker Admitting Unavailable YUHAS, DR CHAVARRIA Primary Care Unavailable HIGHLANDERSALINA Attending Unavailable SALINA LEE Admitting Unavailable YUHAS, DR CHAVARRIA Primary Care Unavailable BALJEET LEONG Attending Unavailabl e CLOUGHERTYBALJEET O Admitting Unavailabl e YUHAS, DR CHAVARRIA Primary Care Unavailable CLOUNAERTY, BALJEET O Attending Unavailabl e CLOUGHERTY, BALJEET O Admitting Unavailabl e YUHAS, DR CHAVARRIA Primary Care Unavailable BALJEET LEONG Attending Unavailabl e CLOUGHERTYBALJEET O Admitting Unavailabl e YUHAS, DR CHAVARRIA Primary Care Unavailable KIRK, DONALD Attending Unavailable KIKR, DONALD Admitting Unavailable YUHAS, DR CHAVARRIA Primary Care Unavailable DONALD BRADLEY Consulting Unavailable KLYM, CHARLES Consulting Unavailable SHAIKH CAMPUZANO H Attending Unavailable SHAIKH CAMPUZANO H Admitting Unavailable YUHAS, DR CHAVARRIA Primary Care Unavailable BAUM, DR ALBER Rich Consulting Unavailable WEST, DR ANAI Edmond Consulting Unavailable ZIEBER, DR ARLEN Patel Consulting Unavailable SANTOS MCMAHON Consulting Unavailable SALINA LEE Consulting Unavailable AGUBOSIM, MICHELA Consulting Unavailable BIANCA, JORDI Consulting Unavailable SUZANNE, SHERINE Consulting Unavailable JUSTEN, DIAZ H Consulting Unavailable SALINA LEE Procedure Practitioner Unava ericable MARIA E BRASWELL Consulting Unavailable WOODY, AMAR Consulting Unavailable YUDONNA, DR CHAVARRIA Primary Care Unavailable SALINA LEE Attending Unavailable SALINA LEE Consulting Unavailable SALINA LEE Admitting Unavailable SALINA LEE Attending Unavailable WEST, DR ANAI Edmond Consulting Unavailable YUHAS, DR CHAVARRIA Primary Care Unavailable SALINA LEE Admitting Unavailable SALINA LEE Consulting Unavailable BALJEET LEONG Attending Unavailabl e CLOUGHERTYBALJEET [...] Alegre Other Provider ROHIT [place] Emergency Provider DO César Cortes Emergency Provider DO Deon Braxton Primary Care Provider DO Reddy Brandt Attending Provider RichardsDO Chavarria Primary Care Provider [phone] DO Reddy Brandt Attending Provider DO César Cortes Emergency Provider DO Reddy Brandt Admit Provider Ghanshyam Kaye Unavailable DO Deon Braxton Primary Care Provider DO Reddy Brandt Attending Provider Dung Serna Unavailable YOVANNY CALHOUN Attending Unavailable YOVANNY CALHOUN Referring Unavailable YOVANNY CALHOUN Attending Unavailable YOVANNY CALHOUN Referring Unavailable DEON BRAXTON Primary Care Unavailable Deon Braxton DO Primary Care Provider [phone] TERRY LOCK Attending Unavailable DEON BRAXTON Referring Unavailable DEON BRAXTON Primary Care Unavailable DO Deon Braxton Primary Care Provider [phone] ERIKA Lee Attending Provider Deon Braxton Primary Care Unavailable Salina Lee Admitting Unavailable Salina Lee Attending Unavailable Deon Braxton Primary Care Unavailable Reddy Brandt Admitting Unavailable Reddy Brandt Attending Unavailable Dung Serna Admitting Unavailable Dung Serna Attending Unavailable Deon Braxton Primary Care Unavailable Allergies Allergy Classification Reported Allergen(s) Allergy Type Date of Onset Reaction(s) Facility (19 sources) Chlorpheniramine; Translations: [chlorpheniramine] Drug Allergy 07-02-19 21 Hives [facility] Repository (15 sources) Dextromethorphan; Translations: [dextromethorphan] Drug Allergy 10-19-19 22 Unknown Reaction [facility] Repository (20 sources) Doxycycline; Translations: [doxycycline] Drug Allergy 04-02-19 21 FELT LIKE A HEART ATTACK, Chest Pain [facility] Repository (18 sources) guaiFENesin; Translations: [guaiFENesin] Drug Allergy 04-14-19 16 hives [facility] Repository (18 sources) levoFLOXacin; Translations: [levoFLOXacin] Drug Allergy 04-02-19 21 Chest Pain [facility] Repository (19 sources) Phenylephrine; Translations: [phenylephrine] Drug Allergy 07-02-19 21 Unknown Reaction [facility] Repository (1 source) Tussionex [employer]; Translations: [Tussionex [employer]] Propensity to adverse reactions to drug (disorder) [facility] Repository (20 sources) Tussin Drug allergy [facility] Other (16 sources) HYDROcodone; Translations: [HYDROCODONE] Drug Allergy 10-19-19 22 [facility] (4 sources) Chlorpheniramine / HYDROcodone; Translations: [TUSSIONEX] Drug Allergy [facility] Repository (4 sources) Dextromethorphan; Translations: [DEXTROMETHORPHAN HBR] Drug Allergy 10-18-19 Itching [facility] Repository (4 sources) [id number] INOPHEN; Translations: [[id number] MINOPHEN] Propensity to adverse reactions to drug (disorder) 02-04-20 [facility] Repository (2 sources) Chlorpheniramine / HYDROcodone Drug Allergy Itching [facility] Medications Current Medications Medication Drug Class(es) Dates Sig (Normalized) Sig (Original) acetaminophen 500 mg oral tablet (14 sources) Start: 10-27-2021 take 500 mg by mouth every four hours Acetaminophen Active 500 MG PO Q4H 100 30 October 26, 2021 11:00pm take 1 capsule by mouth every si x hours Acetaminophen 500 MG 1 capsule as needed Orally every 6 hrs Active [id number] 200 actuat albuterol 0.09 mg/actuat metered dose [...] mL nebulizer Indications: COPD with acute exacerbation ([facility]) USE 3 ML VIA NEBULIZER FOUR TIMES [...] End: 10-27-2021 take 1 tablet by mouth twice daily Apixaban (Eliquis) 5 mg tablet Active 5 MG PO Twice daily 60 October 26, 2021 11:00pm atorvastatin 80 mg oral tablet (20 sources) HMG-CoA Reductase Inhibitor Start: 10-14-2021 End: 10-27-2021 take 1 tablet by mouth in the morning atorvastatin (LIPITOR) 80 mg tablet Indications: hyperlipidemia Take 1 tablet (80 mg total) by mouth in the morning. Indications: excessive fat in the blood. 90 tablet 1 09/12/2022 Active benzonatate 200 mg oral capsule (2 sources) [...] (20 sources) alpha-Adrenergic Doreen, beta-Adrenergic Doreen Start: 10-14-2021 End: 10-27-2021 take 1 tablet by mouth in the morning, then take 1 tablet by mouth at bedtime carvediloL (COREG) 6.25 mg tablet Take 1 tablet (6.25 mg total) by mouth in the morning and 1 tablet (6.25 mg total) before bedtime. 180 tablet 3 06/12/2022 Active take 1 tablet by mouth at [place] Carvedilol 12.5 MG 1 tablet with food [...] MG as directed Orally Active Coenzyme Q10 (10 sources) Start: 10-27-2021 Coenzyme Q10 A ctive [...] tablet Indications: Chronic systolic congestive heart failure ([facility]) Take 1 tablet (10 mg total) by [...] arthropathy, with long-term current use of insulin ([facility]) CHANGE EVERY 2 WEEKS DIRECTED 6 kit 3 02/18/2023 Active 60 actuat fluticasone propionate 0.232 mg/actuat / salmeterol xinafoate 0.014 mg/actuat dry powder inhaler (14 sources) Corticosteroid , beta2-Adrenerg ic Agonist Start: [...] Insulin) 100 unit/mL (3 mL) Insulin Pen (20 sources) Start: 10-27-2021 inject 1 dose by [...] ml insulin detemir 100 unt/ml pen injector (14 sources) Insulin Analog Start: 10-27-2021 Insulin Detemi [...] arthropathy, with long-term current use of insulin ([facility]) Inject 15 Units under the skin in [...] (20 sources) Angiotensin 2 Receptor Doreen Start: 10-14-2021 End: 10-27-2021 take 1 tablet by mouth in the morning losartan (COZAAR) 25 mg tablet TAKE 1 TABLET(25 MG) BY MOUTH IN THE MORNING 90 tablet 0 10/10/2022 Active take 1 tablet by mouth every twe nty-four hours magnesium oxide 400 mg oral tablet (20 sources) Start: 10-14-2021 End: 10-27-2021 take 400 mg by mouth once daily in the morning Magnesium Oxide Active 400 MG PO Every morning 30 30 October 26, 2021 11:00pm multivitamin (THERAGRAN) tablet (2 sources) take 1 tablet by mouth in the morning multivitamin (THERAGRAN) tablet Take 1 tablet by mouth in the morning. 0 Active Multivitamin With Folic Acid (Thera) 400 mcg Tablet (10 sources) Start: 10-27-2021 take 1 tablet by [...] 0.4mg 1 Sublingual Every 5min x3 Active oxyCODONE hydrochloride 5 mg oral tablet (10 sources) Opioid Agonist Start: 11-03-2021 take 1 tablet by mouth every six [...] oral tablet (20 sources) Aldosterone Antagonist Start: 10-14-2021 End: 10-27-2021 take 1 tablet by mouth once daily spironolactone (ALDACTONE) 25 mg tablet Indications: Chronic systolic congestive heart failure (CMS-HCC) TAKE 1 TABLET(25 MG) BY MOUTH EVERY DAY 90 tablet 2 07/13/2022 Active vitamin b12 1 mg extended release oral tablet (1 source) Vitamin B12 take 1 tablet by mouth every twenty-four hours Vitamin B12 1000 MCG (20 sources) take 1 tablet by mouth once daily take 1 tablet by mouth once ninoska [...] aspirin 81 mg delayed release oral tablet (13 sources) Platelet Aggregation Inhibitor, Nonsteroidal Anti-inflammatory Drug [...] 10 mg daily orally Not-Taking/PRN Fluticasone Furoate-Vilanterol (12 sources) Corticosteroid, beta2-Adrenergic Agonist Start: 10-14-2021 End: [...] and spit after every dose. 60 each 10/07/2020 Active insulin aspart, human (20 sources) [...] Glargine (Lantus U-100 Insulin) 100 unit/mL solution (11 sources) Start: 10-14-2021 End: 10-27-2021 inject 40 [...] Orally Once a day Not-Taking/PRN Multivitamin preparation (15 sources) Start: 2021 End: 2021 take 1 [...] 1 tablet Orally Once a day Active nitroglycerin 0.4 mg sublingual tablet (20 sources) Nitrate Vasodilator Start: 07-05-2020 End: 10-27-2021 take 0.4 mg under the tongue once daily Nitroglycerin Discontinued 0.4 MG SUBLINGUAL Daily 2021 11:00pm October 27, 2021 8:20am Ondansetron (20 sources) Serotonin-3 Receptor Antagonist Zofran [...] 2021 8:20am ubidecarenone 200 mg oral capsule (14 sources) Start: 2 End: 2 Coenzyme Q10 Discontinued 200 MG PO [...] Renal failure syndrome; Translations: [Unspecified kidney failure] 10-22-2021 Chronic Administrative/social admission (17 sources) Other reduced mobility; Translations: [Impaired mobility and activities of daily living] 10-22-2021 Episodic Chronic kidney disease (20 sources) Chronic kidney disease, unspecified; Translations: [Chronic kidney disease stage 3] Onset: 04-22-2020 10-22-2021 Chronic Chronic kidney disease (1 source) Chronic kidney disease; Translations: [CHRONIC KIDNEY DISEASE STAGE 3B] Onset: 03-02-2021 Chronic obstructive pulmonary disease and bronchiectasis (3 sources) Chronic obstructive pulmonary disease, unspecified; Translations: [Chronic obstructive lung disease] Onset: 04-22-2020 04-22-2020 Chronic Complications of surgical procedures or medical care (20 sources) Other complications of procedures, not elsewhere classified, sequela; Translations: [Other complications of procedures, not elsewhere classified, subsequent encounter] Onset: 02-08-2021 Resolved: 12-14-2021 Episodic Conduction disorders (5 sources) Presence of automatic (implantable) cardiac defibrillator; Translations: [Cardiac defibrillator in situ] Onset: 09-06-2015 04-12-2023 Chronic Congestive heart failure; nonhypertensive (5 sources) Chronic systolic (congestive) heart failure; Translations: [Chronic systolic heart failure] Onset: 01-22-2020 04-12-2023 Chronic Coronary atherosclerosis and other heart disease (10 sources) Old myocardial infarction; Translations: [Atherosclerotic heart disease of [place] coronary artery without angina pectoris] Onset: 11-23-2017 [...] ankle, unspecified lower leg, initial encounter] Onset: 03-31-2022 10-19-2021 Chronic Osteoarthritis (5 sources) Primary osteoarthritis, right ankle and foot; Translations: [PRIMARY OSTEOARTHRITIS RT ANK FOOT] Onset: 06-06-2021 Chronic Other acquired deformities (1 source) Contracture, right ankle; Translations: [CONTRACTURE RIGHT ANKLE] Onset: 06-06-2021 Chronic Other aftercare (20 sources) Long-term current use of insulin; Translations: [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 insulin] Episodic Other and [...] Translations: [OTHER SPECIFIED ARTHRITIS UNS SITE] Onset: 05-25-2021 Chronic Other non-traumatic joint disorders (6 sources) [...] UNSPECIFIED] Onset: 03-02-2021 Chronic Residual codes; unclassified (12 sources) Obstructive sleep apnea syndrome; Translations: [Obstructive sleep apnea (adult) (pediatric)] Onset: 03-30-2016 10-22-2021 Chronic Residual codes; unclassified (7 sources) Obstructive sleep apnea (adult) (pediatric); Translations: [Obstructive sleep apnea (adult)(pediatric)] 10-27-2021 Chronic Residual codes; unclassified (14 sources) Other specified postprocedural states Onset: 10-31-2021 Resolved: 12-14-2021 Episodic Residual codes; unclassified (1 source) Edema, unspecified; Translations: [EDEMA UNSPECIFIED] Onset: 09-05-2021 Episodic Skin and subcutaneous tissue infections (15 sources) Cutaneous abscess, unspecified; Translations: [Cellulitis of right lower limb] Onset: 05-16-2021 Episodic Spondylosis; intervertebral disc disorders; other back problems (1 source) Spondylosis without myelopathy or radiculopathy, site unspecified; Translations: [SPONDYLS W/O MYELO-/RADICULOP UNS] Onset: 02-08-2021 Chronic Unclassified (4 sources) Pressure-induced deep tissue damage of unspecified site; Translations: [PRESS-INDUC DEEP TIS DAMG UNSP SITE] Onset: 02-17-2021 Unclassified (1 source) CONTACT W/AND (SUSP) EXPOS COVID-19; Translations: [CONTACT W/AND (SUSP) EXPOS COVID-19] Onset: 02-08-2021 Unclassified (1 source) LOW BACK PAIN, UNSPECIFIED; Translations: [LOW BACK PAIN, UNSPECIFIED] Onset: 02-08-2021 Unclassified (1 source) Pre-op Exam Onset: 04-12-2023 Unclassified (1 source) Other chronic osteomyelitis, right tibia and fibula; Translations: [Other chronic osteomyelitis, right tibia and fibula] Onset: 05-03-2022 Past or Other Problems Problem Classification Problem Date Documented Date Episodic/Chronic Acquired foot deformities (1 source) Varus deformity, not elsewhere classified, right ankle; Translations: [VARUS DEFORMITY NEC RIGHT ANKLE] Onset: 06-06-2021 Episodic Acute myocardial infarction (5 sources) Acute myocardial infarction, unspecified; Translations: [Acute ST segment elevation myocardial infarction involving left anterior descending coronary artery] Onset: 04-02-2014 Resolved: 12-29-2021 12-28-2021 Chronic Bacterial infection; unspecified site (1 source) Personal [...] ORTHO PROS DEVC INIT] Onset: 03-02-2021 Episodic Esophageal disorders (2 sources) Esophageal mass; [...] 01-18-2021 Episodic Other aftercare (1 source) 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; Translations: [SENIOR CARE CURRENT USE OF ASPIRIN] Onset: 03-02-2021 Episodic Other aftercare (1 source) halfway (current) use of insulin; Translations: [SENIOR CARE CURRENT USE OF INSULIN] Onset: 03-02-2021 Episodic Other aftercare (1 source) Other long term care social worker (current) drug therapy; Translations: [[facility] CURRENT DRUG THERAPY] Onset: 03-02-2021 Episodic Other [...] DYSTROPHY] Onset: 06-15-2021 Episodic Residual codes; unclassified (1 source) Acquired absence of other specified parts of digestive tract; Translations: [ACQ ABSENCE OTH PART DIGESTV TRACT] Onset: 03-02-2021 Episodic Spondylosis; intervertebral disc disorders; other back problems (6 sources) Neck pain; Translations: [Cervicalgia] Onset: 10-05-2022 Episodic Superficial injury; contusion (2 sources) Abrasion, right lower leg, initial encounter; Translations: [Blister (nonthermal), right foot, initial encounter] Onset: 02-04-2021 Episodic Results Test Name Value Interpretation Reference Range Facility [facility] 04-19-2023 L Specimen: [id number] Received: 04/20/23 Status: SASHA León Num: [id number] Spec Type: Surgical Subm Dr: Salina Lee DPM, MS Tissues: A Bone Fragments - Other than Path Fracture (LT LATERAL MALLEOLUS) Procedures: HE, Gross/Micro L3, Decalcification Age/ Patient Sex Location Account Attending Physician Anai Goodman 67/M LABELL [id number] Salina Lee DPM, MS SPEC NUM: [id number] RECD: 04/20/23 STATUS: SASHA LEÓN NUM: [id number] KARIME: 04/19/[address]: Salina Lee DPM, MS ENTERED: 04/20/23-1312 [facility] DR: Pernell,Lab SPEC TYPE: Surgical DEPT: ROSA M RILEY ORDERED: HARRISON, Gross/Micro L3, Decalcification ORDERED: HARRISON, Gross/Micro L3, Decalcification Pathological Diagnosis Left lateral malleolus, resection: Regenerative bone changes. No evidence of osteomyelitis. Clinical Information Nonpressure ulcer left ankle, osteomyelitis left ankle Gross Description Received in formalin labeled with the patient's name, date of and left lateral malleolus is a 3.2 x 2.5 x 0.3 cm aggregate of arellano-mann bony fragments, which are entirely submitted following decalcification.. Entirely submitted in one cassette labeled A1. CPT Codes 82007, 41860 -------- -------- Specimen: [id number] Received: 04/20/23 Status: SASHA León Num: [id number] Spec Type: Surgical Subm Dr: Salina Lee DPM, MS Tissues: A Bone Fragments - Other than Path Fracture (LT LATERAL MALLEOLUS) Procedures: Octavio TERRY/Micro L3, Decalcification -------- Patient: Anai Goodman [id number] (Continued) -------- Signed (signature on file) Aniket Krishnamurthy MD 04/23/232202 [facility] POCT EKGon 04-12-2023 [facility] MR ANKLE LT W WO CONTon - MR ANKLE LT W WO CONT MR [...] Bennett MD on 04/05/2023 8:50 AM Normal [facility] XR cervical spine 2Von 10-05 XR cervical spine 2V [facility] [place] [address] XRay Report Signed Patient: Anai Goodman MR#: [id number] : 1955 Acct:[id number] Age/Sex: 66 / M ADM Date: 10/05/22 Loc: XD Room: Type: [facility] Attending Dr: Dung Serna MD Copies to: [...] Jose Sanabria M.D.10/05/2022 12:36 PM Dictation Location: [place] [address] Transcribed By: [facility] 10/05/22 1236 Dictated By: Jose Sanabria DO 10/05/22 1233 Signed By: 10/05/22 1236 Normal [facility] Basophils Auto (Bld) [#/Vol] Ordered By: Spenser Elaine on 11-29-2021 Basophils (Bld) [#/Vol] 0.0 10*3/uL 0.0-0.2 [facility] Basophils/100 WBC Auto (Bld) Ordered By: Spenser Elaine on 11-29-2021 Basophils/100 WBC (Bld) 0.5 % . F [facility] Blood hemoglobin measurement (mass/volume)Ordered By: Spenser Elaine on 11-29-2021 Hemoglobin (Bld) [Mass/Vol] 12.6 g/dL 13.0-17.0 [facility] Blood leukocytes automated c ount (number/volume)Ordered By: Spenser Elaine on 11-29-2021 WBC (Bld) [#/Vol] 6.8 10*3/uL 4.5-11.0 [facility] COVID CepheidOrdered By: Junior sotelo Sebastian on 11-29-2021 SARS-CoV-2 (COVID-19) Ab IA Ql Negative Negative [facility] Comment on above: This is a duplicate Cepheid Xpert Xpress CoV-2/Flu/RSV Plus RNA by RT-PCR result to be used for statistical tracking purpose only. SARS-CoV-2 (COVID-19) RNA MEREDITH+probe Ql (Unsp spec) [facility] Creatinine and Glomerular fi ltration rate.predicted panel (S/P/Bld)Ordered By: Spenser Elaine on 11-29-2021 Creatinine [Mass/Vol] 1.38 mg/dL 0.64-1.27 [facility] Eosinophils Auto (Bld) [#/Vo l]Ordered By: Spenser Elaine on 11-29-2021 Eosinophils (Bld) [#/Vol] 0.5 10*3/uL 0.0-0.45 [facility] Eosinophils/100 WBC Auto (Bl d)Ordered By: Spenser Elaine on 11-29-2021 Eosinophils/100 WBC (Bld) 7.5 % . [facility] Erythrocyte distribution wid th Auto (RBC) [Ratio]Ordered By: Spenser Elaine on 11-29-2021 Erythrocyte distribution width (RBC) [Ratio] 15.7 % 12.0-14.8 [facility] Estimated glomerular filtrat ion rate (GFR) non- AmericanOrdered By: Spenser Elaine on 11-29-2021 GFR/1.73 sq M.predicted among non-blacks MDRD (S/P/Bld) [Vol rate/Area] 52 mL/Min [facility] Glucose Glucometer (BldC) [M ass/Vol]Ordered By: Reddy Brandt on 11-29-2021 Glucose [Mass/Vol] 141 mg/dL [facility] Comment on above: Random Glucose Refer ence Range is dependent on time and content of last meal. Glucose of more than 200 mg/dL in a nonstressed, ambulatory subject supports the diagnosis of Diabetes Mellitus. Hematocrit Auto (Bld) [Volum e fraction]Ordered By: Spenser Elaine on 11-29-2021 Hematocrit (Bld) [Volume fraction] 38.3 % 38.8-50.0 [facility] Laboratory - Hematology and Cell countsOrdered By: Spenser Elaine on 11-29-2021 Nucleated RBC/100 WBC (Bld) [Ratio] 0.0 % 0-0.5 [facility] Laboratory - Microbiology an d Antimicrobial susceptibilityOrdered By: César Cortes on 11-29-2021 SARS-CoV-2 (COVID-19) RNA MEREDITH+probe Ql (Unsp spec) N/A [facility] Lymphocytes Auto (Bld) [#/Vo l]Ordered By: Spenser Elaine on 11-29-2021 Lymphocytes (Bld) [#/Vol] 0.6 10*3/uL 1.00-4.8 [facility] Lymphocytes/100 WBC Auto (Bl d)Ordered By: Spenser Elaine on 11-29-2021 Lymphocytes/100 WBC (Bld) 9.0 % . [facility] MCH Auto (RBC) [Entitic mass ]Ordered By: Spenser Elaine on 11-29-2021 MCH (RBC) [Entitic mass] 27.6 pg 27.5-35.2 [facility] MCHC Auto (RBC) [Mass/Vol]Or dered By: Spenser Elaine on 11-29-2021 MCHC (RBC) [Mass/Vol] 32.8 g/dL 32.5-35.6 [facility] MCV Auto (RBC) [Entitic vol] Ordered By: Spenser Elaine on 11-29-2021 MCV (RBC) [Entitic vol] 84.3 fL 83.5-101 F [facility] Monocytes Auto (Bld) [#/Vol] Ordered By: Spenser Elaine on 11-29-2021 Monocytes (Bld) [#/Vol] 0.7 10*3/uL 0.0-0.8 [facility] Monocytes/100 WBC Auto (Bld) Ordered By: Spenser Elaine on 11-29-2021 Monocytes/100 WBC (Bld) 10.9 % . [facility] Neutrophils Auto (Bld) [#/Vo l]Ordered By: Spenser Elaine on 11-29-2021 Neutrophils (Bld) [#/Vol] 4.9 10*3/uL 1.8-7.7 [facility] Neutrophils/100 WBC Auto (Bl d)Ordered By: Spenser Elaine on 11-29-2021 Neutrophils/100 WBC (Bld) 72.1 % . [facility] No Panel InformationOrdered By: Reddy Brandt on 11-29-2021 Bedside Glucose Comment Glu2: cleaned meter [facility] No Panel InformationOrdered By: Spenser Elaine on 11-29-2021 Estimated GFR () > 60 mL/Min [facility] Comment on above: GFR estimated refere nce range: According to KDOQI guidelines, <60 ml/min/1.73m2 is sufficient to diagnose a patient with chronic kidney disease. Pharmacy Creatinine Clearance (Chem 66.84 [facility] Platelet mean volume Auto (B ld) [Entitic vol]Ordered By: Spenser Elaine on 11-29-2021 Platelet mean volume (Bld) [Entitic vol] 9.3 fL 6.6-10.1 [facility] Platelets Auto (Bld) [#/Vol] Ordered By: Spenser Elaine on 11-29-2021 Platelets (Bld) [#/Vol] 142 10*3/uL 150-450 [facility] RBC Auto (Bld) [#/Vol]Ordere d By: Spenser Elaine on 11-29-2021 RBC (Bld) [#/Vol] 4.54 10*6/uL 3.90-5.60 [facility] Serum or plasma anion gap de terminationOrdered By: Spenser Elaine on 11-29-2021 Anion gap [Moles/Vol] 12.0 mmol/L 6.0-15.0 [facility] Serum or plasma calcium sergei urement (mass/volume)Ordered By: Spenser Elaine on 11-29-2021 Calcium [Mass/Vol] 10.0 mg/dL 8.2-10.2 [facility] Serum or plasma chloride zofia surement (moles/volume)Ordered By: Spenser Elaine on 11-29-2021 Chloride [Moles/Vol] 100 mmol/L 95-114 [facility] Serum or plasma glucose sergei urement (mass/volume)Ordered By: Spenser Elaine on 11-29-2021 Glucose [Mass/Vol] 130 mg/dL 70-100 [facility] Comment on above: ADA recommended refe [...] on 11-29-2021 Potassium [Moles/Vol] 4.0 mmol/L 3.5-5.1 [facility] Serum or plasma sodium measu rement (moles/volume)Ordered By: Spenser Elaine on 11-29-2021 Sodium [Moles/Vol] 138 mmol/L 136-146 [facility] Serum or plasma total carbon dioxide measurement (moles/volume)Ordered By: Spenser Elaine on 11-29-2021 CO2 [Moles/Vol] 30.0 mmol/L 22.0-30.0 [facility] Serum or plasma urea nitroge n measurement (mass/volume)Ordered By: Spenser Elaine on 11-29-2021 Urea nitrogen [Mass/Vol] 22 mg/dL 9-23 [facility] Glucose Glucometer (BldC) [M ass/Vol]Ordered By: Reddy Brandt on 11-03-2021 Glucose [Mass/Vol] 174 mg/dL [facility] Comment on above: Random Glucose Refer ence Range is dependent on time and content of last meal. Glucose of more than 200 mg/dL in a nonstressed, ambulatory subject supports the diagnosis of Diabetes Mellitus. No Panel InformationOrdered By: Reddy Brandt on 11-03-2021 Bedside Glucose Comment Glu2: cleaned meter [facility] COVID-19 Positive/NegativeOr dered By: Reddy Brandt on 11-02-2021 SARS-CoV-2 (COVID-19) N gene MEREDITH+probe Ql (Resp) Negative Negative [facility] Comment on above: Testing for SARS-CoV -2 by RT-PCR This test was developed and its performance characteristics determined by [employer]) and validated at the [facility]. This test has not been FDA [...] developed and its performance characteristics determined by [employer]) and validated at the [facility]. This test has not been FDA [...] Kaye on 10-27-2021 Glucose [Mass/Vol] 166 mg/dL [facility] Comment on above: Random Glucose Refer ence Range is dependent on time and content of last meal. Glucose of more than 200 mg/dL in a nonstressed, ambulatory subject supports the diagnosis of Diabetes Mellitus. No Panel InformationOrdered By: Ghanshyam Kaye on 10-27-2021 Bedside Glucose Comment Glu2: cleaned meter [facility] Basophils Auto (Bld) [#/Vol] Ordered By: Chante Narayan on 10-25-2021 Basophils (Bld) [#/Vol] 0.0 10*3/uL 0.0-0.2 [facility] Basophils/100 WBC Auto (Bld) Ordered By: Chante Narayan on 10-25-2021 Basophils/100 WBC (Bld) 0.3 % . F [facility] Blood hemoglobin measurement (mass/volume)Ordered By: Chante Narayan on 10-25-2021 Hemoglobin (Bld) [Mass/Vol] 11.2 g/dL 13.0-17.0 [facility] Blood leukocytes automated c ount (number/volume)Ordered By: Chante Narayan on 10-25-2021 WBC (Bld) [#/Vol] 5.7 10*3/uL 4.5-11.0 [facility] Creatinine and Glomerular fi ltration rate.predicted panel (S/P/Bld)Ordered By: Chante Narayan on 10-25-2021 Creatinine [Mass/Vol] 1.24 mg/dL 0.64-1.27 [facility] Eosinophils Auto (Bld) [#/Vo l]Ordered By: Chante Narayan on 10-25-2021 Eosinophils (Bld) [#/Vol] 0.4 10*3/uL 0.0-0.45 [facility] Eosinophils/100 WBC Auto (Bl d)Ordered By: Chante Narayan on 10-25-2021 Eosinophils/100 WBC (Bld) 6.7 % . [facility] Erythrocyte distribution wid th Auto (RBC) [Ratio]Ordered By: Chante Narayan on 10-25-2021 Erythrocyte distribution width (RBC) [Ratio] 17.6 % 12.0-14.8 [facility] Estimated glomerular filtrat ion rate (GFR) non- AmericanOrdered By: Chante Narayan on 10-25-2021 GFR/1.73 sq M.predicted among non-blacks MDRD (S/P/Bld) [Vol rate/Area] 59 mL/Min [facility] Hematocrit Auto (Bld) [Volum e fraction]Ordered By: Chante Narayan on 10-25-2021 Hematocrit (Bld) [Volume fraction] 33.0 % 38.8-50.0 [facility] Laboratory - Hematology and Cell countsOrdered By: Chante Narayan on 10-25-2021 Nucleated RBC/100 WBC (Bld) [Ratio] 0.1 % 0-0.5 [facility] Lymphocytes Auto (Bld) [#/Vo l]Ordered By: Chante Narayan on 10-25-2021 Lymphocytes (Bld) [#/Vol] 0.5 10*3/uL 1.00-4.8 [facility] Lymphocytes/100 WBC Auto (Bl d)Ordered By: Chante Narayan on 10-25-2021 Lymphocytes/100 WBC (Bld) 9.4 % . [facility] MCH Auto (RBC) [Entitic mass ]Ordered By: Chante Narayan on 10-25-2021 MCH (RBC) [Entitic mass] 29.3 pg 27.5-35.2 [facility] MCHC Auto (RBC) [Mass/Vol]Or dered By: Chante Narayan on 10-25-2021 MCHC (RBC) [Mass/Vol] 33.8 g/dL 32.5-35.6 [facility] MCV Auto (RBC) [Entitic vol] Ordered By: Chante Narayan on 10-25-2021 MCV (RBC) [Entitic vol] 86.7 fL 83.5-101 F [facility] Monocytes Auto (Bld) [#/Vol] Ordered By: Chante Narayan on 10-25-2021 Monocytes (Bld) [#/Vol] 0.8 10*3/uL 0.0-0.8 [facility] Monocytes/100 WBC Auto (Bld) Ordered By: Chante Narayan on 10-25-2021 Monocytes/100 WBC (Bld) 14.5 % . [facility] Neutrophils Auto (Bld) [#/Vo l]Ordered By: Chante Narayan on 10-25-2021 Neutrophils (Bld) [#/Vol] 4.0 10*3/uL 1.8-7.7 [facility] Neutrophils/100 WBC Auto (Bl d)Ordered By: Chante Narayan on 10-25-2021 Neutrophils/100 WBC (Bld) 69.1 % . [facility] No Panel InformationOrdered By: Chante Narayan on 10-25-2021 Estimated GFR () > 60 mL/Min [facility] Comment on above: GFR estimated refere nce range: According to KDOQI guidelines, <60 ml/min/1.73m2 is sufficient to diagnose a patient with chronic kidney disease. Pharmacy Creatinine Clearance (Chem 60.35 [facility] Platelet mean volume Auto (B ld) [Entitic vol]Ordered By: Chante Narayan on 10-25-2021 Platelet mean volume (Bld) [Entitic vol] 8.6 fL 6.6-10.1 [facility] Platelets Auto (Bld) [#/Vol] Ordered By: Chante Narayan on 10-25-2021 Platelets (Bld) [#/Vol] 159 10*3/uL 150-450 [facility] RBC Auto (Bld) [#/Vol]Ordere d By: Chante Narayan on 10-25-2021 RBC (Bld) [#/Vol] 3.81 10*6/uL 3.90-5.60 [facility] Serum or plasma calcium sergei urement (mass/volume)Ordered By: Chante Narayan on 10-25-2021 Calcium [Mass/Vol] 9.1 mg/dL 8.2-10.2 [facility] Serum or plasma chloride zofia surement (moles/volume)Ordered By: Chante Narayan on 10-25-2021 Chloride [Moles/Vol] 102 mmol/L 95-114 [facility] Serum or plasma glucose sergei urement (mass/volume)Ordered By: Chante Narayan on 10-25-2021 Glucose [Mass/Vol] 176 mg/dL 70-100 [facility] Comment on above: ADA recommended refe rence range Random Glucose Reference Range is dependent on time and content of last meal. Glucose of more than 200 mg/dL in a nonstressed, ambulatory subject supports the diagnosis of Diabetes Mellitus. Serum or plasma potassium me asurement (moles/volume)Ordered By: Chante Narayan on 10-25-2021 Potassium [Moles/Vol] 3.6 mmol/L 3.5-5.1 [facility] Serum or plasma sodium measu rement (moles/volume)Ordered By: Chante Narayan on 10-25-2021 Sodium [Moles/Vol] 136 mmol/L 136-146 [facility] Serum or plasma total carbon dioxide measurement (moles/volume)Ordered By: Chante Narayan on 10-25-2021 CO2 [Moles/Vol] 25.8 mmol/L 22.0-30.0 [facility] Serum or plasma urea nitroge n measurement (mass/volume)Ordered By: Chante Narayan on 10-25-2021 Urea nitrogen [Mass/Vol] 32 mg/dL 12-23 [facility] Albumin [Mass/volume] in Ser um or PlasmaOrdered By: Chante Narayan 10-22-2021 Albumin [Mass/Vol] 3.1 g/dL 3.2-5.5 [facility] Globulin Calc (S) [Mass/Vol] Ordered By: Chante Narayan 10-22-2021 Globulin (S) [Mass/Vol] 3.0 g/dL [facility] Protein [Mass/volume] in Ser um or PlasmaOrdered By: Chante Narayan 10-22-2021 Protein [Mass/Vol] 6.1 g/dL 6.1-7.9 [facility] Serum or plasma alanine dasilva otransferase measurement without P-5'-P (enzymatic activiOrdered By: Chante Narayan on 10-22-2021 ALT No additional P-5'-P [Catalytic activity/Vol] 21 U/L 10-60 [facility] Serum or plasma albumin/glob ulin mass ratioOrdered By: Chante Narayan on 10-22-2021 Albumin/Globulin [Mass ratio] 1.0 {ratio} [facility] Serum or plasma alkaline bob sphatase measurement (enzymatic activity/volume)Ordered By: Chante Narayan on 10-22-2021 ALP [Catalytic activity/Vol] 71 U/L 32-92 [facility] Serum or plasma aspartate am inotransferase measurement (enzymatic activity/volume)Ordered By: Chante Narayan on 10-22-2021 AST [Catalytic activity/Vol] 23 U/L 10-42 [facility] Serum or plasma prealbumin m easurement (mass/volume)Ordered By: Chante Narayan on 10-22-2021 Prealbumin [Mass/Vol] 19.4 mg/dL 18.0-38.0 [facility] Serum or plasma total biliru bin measurement (mass/volume)Ordered By: Chante Narayan on 10-22-2021 Bilirubin [Mass/Vol] 1.0 mg/dL 0.3-1.2 [facility] Bacteria identified Anaer cx Nom (Unsp spec)Ordered By: Reddy Brandt on 10-21-2021 Anaerobic microbial culture No Anaerobes Isolated 3 Days [facility] COVID-19 Positive/NegativeOr dered By: Reddy Brandt on 10-21-2021 SARS-CoV-2 (COVID-19) N gene MEREDITH+probe Ql (Resp) Negative Negative [facility] Comment on above: Testing for SARS-CoV -2 by RT-PCR This test was developed and its performance characteristics determined by [employer] and validated at the [facility]. This test has not been FDA [...] Brandt on 10-21-2021 Glucose [Mass/Vol] 298 mg/dL [facility] Comment on above: Random Glucose Refer ence Range is dependent on time and content of last meal. Glucose of more than 200 mg/dL in a nonstressed, ambulatory subject supports the diagnosis of Diabetes Mellitus. No Panel InformationOrdered By: Reddy Brandt on 10-21-2021 Bedside Glucose Comment Glu2: cleaned meter [facility] Bedside Glucose #2 Comment Cleaned meter [facility] ABO and Rh group post transf usion reaction Nom (Bld)Ordered By: Reddy Brandt on 10-19-2021 Microscopic observation Gram stain Nom (Unsp spec) [facility] COVID-19 Positive/NegativeOr dered By: Reddy Brandt on 10-14-2021 SARS-CoV-2 (COVID-19) N gene MEREDITH+probe Ql (Resp) Negative Negative [facility] Comment on above: Testing for SARS-CoV -2 by RT-PCR This test was developed and its performance characteristics determined by [employer] and validated at the [facility]. This test has not been FDA [...] 10-06-2021 Basophils (Bld) [#/Vol] 0.0 10*3/uL 0.0-0.2 [facility] Basophils/100 WBC Auto (Bld) Ordered By: Reddy Brandt on 10-06-2021 Basophils/100 WBC (Bld) 0.6 % . [facility] Blood hemoglobin measurement (mass/volume)Ordered By: Reddy Brandt on 10-06-2021 Hemoglobin (Bld) [Mass/Vol] 13.7 g/dL 13.0-17.0 [facility] Blood leukocytes automated c ount (number/volume)Ordered By: Reddy Brandt on 10-06-2021 WBC (Bld) [#/Vol] 7.8 10*3/uL 4.5-11.0 [facility] Creatinine and Glomerular fi ltration rate.predicted panel (S/P/Bld)Ordered By: Reddy Brandt on 10-06-2021 Creatinine [Mass/Vol] 1.76 mg/dL 0.64-1.27 [facility] Eosinophils Auto (Bld) [#/Vo l]Ordered By: Reddy Brandt on 10-06-2021 Eosinophils (Bld) [#/Vol] 0.4 10*3/uL 0.0-0.45 [facility] Eosinophils/100 WBC Auto (Bl d)Ordered By: Reddy Brandt on 10-06-2021 Eosinophils/100 WBC (Bld) 4.9 % . [facility] Erythrocyte distribution wid th Auto (RBC) [Ratio]Ordered By: Reddy Brandt on 10-06-2021 Erythrocyte distribution width (RBC) [Ratio] 18.8 % 12.0-14.8 [facility] Erythrocyte sedimentation ra te by Photometric methodOrdered By: Reddy Brandt on 10-06-2021 ESR Photometric method (Bld) [Velocity] 21 mm/hr 0-19 [facility] Estimated glomerular filtrat ion rate (GFR) non- AmericanOrdered By: Reddy Brandt on 10-06-2021 GFR/1.73 sq M.predicted among non-blacks MDRD (S/P/Bld) [Vol rate/Area] 39 mL/Min [facility] Glucose mean value [Mass/vol ume] in Blood Estimated from glycated hemoglobinOrdered By: Reddy Brandt on 10-06-2021 Average glucose Estimated from glycated hemoglobin (Bld) [Mass/Vol] 163 mg/dL [facility] Hematocrit Auto (Bld) [Volum e fraction]Ordered By: Reddy Brandt on 10-06-2021 Hematocrit (Bld) [Volume fraction] 41.1 % 38.8-50.0 [facility] Hemoglobin A1c percentageOrd ered By: Reddy Brandt on 10-06-2021 HbA1c (Bld) [Mass fraction] 7.3 % 4.3-5.6 [facility] Comment on above: Increased risk for d iabetes: 5.7 - 6.4 diabetes: >6.4 glycemic control for adults with diabetes: <7.0 Laboratory - Hematology and Cell countsOrdered By: Reddy Brandt on 10-06-2021 Nucleated RBC/100 WBC (Bld) [Ratio] 0.0 % 0-0.5 [facility] Lymphocytes Auto (Bld) [#/Vo l]Ordered By: Reddy Brandt on 10-06-2021 Lymphocytes (Bld) [#/Vol] 0.8 10*3/uL 1.00-4.8 [facility] Lymphocytes/100 WBC Auto (Bl d)Ordered By: Reddy Brandt on 10-06-2021 Lymphocytes/100 WBC (Bld) 10.9 % . [facility] MCH Auto (RBC) [Entitic mass ]Ordered By: Reddy Brandt on 10-06-2021 MCH (RBC) [Entitic mass] 28.8 pg 27.5-35.2 [facility] MCHC Auto (RBC) [Mass/Vol]Or dered By: Reddy Brandt on 10-06-2021 MCHC (RBC) [Mass/Vol] 33.3 g/dL 32.5-35.6 [facility] MCV Auto (RBC) [Entitic vol] Ordered By: Reddy Brandt on 10-06-2021 MCV (RBC) [Entitic vol] 86.3 fL 83.5-101 [facility] Monocytes Auto (Bld) [#/Vol] Ordered By: Reddy Brandt on 10-06-2021 Monocytes (Bld) [#/Vol] 0.9 10*3/uL 0.0-0.8 [facility] Monocytes/100 WBC Auto (Bld) Ordered By: Reddy Brandt on 10-06-2021 Monocytes/100 WBC (Bld) 11.8 % . [facility] Neutrophils Auto (Bld) [#/Vo l]Ordered By: Reddy Brandt on 10-06-2021 Neutrophils (Bld) [#/Vol] 5.6 10*3/uL 1.8-7.7 [facility] Neutrophils/100 WBC Auto (Bl d)Ordered By: Reddy Brandt on 10-06-2021 Neutrophils/100 WBC (Bld) 71.8 % . [facility] No Panel InformationOrdered By: Reddy Brandt on 10-06-2021 Estimated GFR () 48 mL/Min [facility] Comment on above: GFR estimated refere nce range: According to KDOQI guidelines, <60 ml/min/1.73m2 is sufficient to diagnose a patient with chronic kidney disease. Pharmacy Creatinine Clearance (Chem N/A [facility] Platelet mean volume Auto (B ld) [Entitic vol]Ordered By: Reddy Brandt on 10-06-2021 Platelet mean volume (Bld) [Entitic vol] 9.1 fL 6.6-10.1 [facility] Platelets Auto (Bld) [#/Vol] Ordered By: Reddy Brandt on 10-06-2021 Platelets (Bld) [#/Vol] 131 10*3/uL 150-450 [facility] RBC Auto (Bld) [#/Vol]Ordere d By: Reddy Brandt on 10-06-2021 RBC (Bld) [#/Vol] 4.77 10*6/uL 3.90-5.60 [facility] Serum or plasma C reactive p rotein measurement (mass/volume)Ordered By: Reddy Brandt on 10-06-2021 CRP [Mass/Vol] 0.5 mg/dL 0.0-1.0 [facility] Serum or plasma chloride zofia surement (moles/volume)Ordered By: Reddy Brandt on 10-06-2021 Chloride [Moles/Vol] 93 mmol/L 95-114 [facility] Serum or plasma potassium me asurement (moles/volume)Ordered By: Reddy Brandt on 10-06-2021 Potassium [Moles/Vol] 3.8 mmol/L 3.5-5.1 [facility] Serum or plasma sodium measu rement (moles/volume)Ordered By: Reddy Brandt on 10-06-2021 Sodium [Moles/Vol] 139 mmol/L 136-146 [facility] Serum or plasma total carbon dioxide measurement (moles/volume)Ordered By: Reddy Brandt on 10-06-2021 CO2 [Moles/Vol] 31.4 mmol/L 22.0-30.0 [facility] Serum or plasma urea nitroge n measurement (mass/volume)Ordered By: Reddy Brandt on 10-06-2021 Urea nitrogen [Mass/Vol] 52 mg/dL 12-23 [facility] WOUND CULTUREon 09-12-2021 Bacteria identified Aer cx Nom (Unsp spec) Final report Normal [facility] Comment on above: Performed By: #### C XWND ####[facility] Beqtcbcqdw[address] [place], [place] [address]DrVeronica Reagan Result 1 Mixed skin areli Normal [facility] Comment on above: Performed By: #### C XWND ####[facility] Wvatkedqlu22[address] [place], [place] [address]DrVeronica Reagan CBC AUTO DIFFon 09-09-2021 BASO # 0.0 103/ul Normal 0.0-0.1 [facility] Comment on above: Performed By: #### C BC ####[facility] Afyzmjipjq[address] [place], [place] [address]DrVeronica Reagan Basophils/100 WBC (Bld) 0.6 % Normal 0.2-2.0 [facility] Comment on above: Performed By: #### C BC ####[facility] Xsrqniosdu95[address] [place], [place] [address]DrVeronica Reagan EO # 0.3 103/ul Normal 0.0-0.7 [facility] Comment on above: Performed By: #### C BC ####[facility] Diwwukzlrr[address] [place], [place] [address]Dr. Anjali Reagan Eosinophils/100 WBC (Bld) 4.1 % Normal 0.9-7.0 The [facility] Comment on above: Performed By: #### C BC ####[facility] Iepcefpxft2114 [place] [address]Dr. Anjali Reagan Erythrocyte distribution width (RBC) [Ratio] 16.1 % Critically high 11.0-15.0 The [facility] Comment on above: Performed By: #### C BC ####[facility] Qxrflqyytm4361 [place] [address]Dr. Anjali Reagan Hematocrit (Bld) [Volume fraction] 38.3 % Critically low 42.0-54.0 The [facility] Comment on above: Performed By: #### C BC ####[facility] Enlwgnrjkj5912 [place] [address]Dr. Anjali Reagan Hemoglobin (Bld) [Mass/Vol] 12.0 g/dL Critically low 14.0-18.0 The [facility] Comment on above: Performed By: #### C BC ####[facility] Vrcfawgktl0304 [place] [address]Dr. Anjali Reagan IG # 0.04 10e3/ul Critically high 0.00-0.03 [facility] Comment on above: Performed By: #### C BC ####[facility] Xitbiynomp1373 [place] [address]Dr. Anjali Reagan IG % 0.6 % Critically high 0.0-0.5 [facility] Comment on above: Performed By: #### C BC ####[facility] Ryfytsswwb5356 [place] [address]Dr. Anjali Reagan LYMPH # 0.9 103/ul Critically low 1.2-3.8 [facility] Comment on above: Performed By: #### C BC ####[facility] Qfnvpatteb7081 [place] [address]Dr. Anjali Reagan Lymphocytes/100 WBC (Bld) 12.6 % Critically low 20.5-60.0 The [facility] Comment on above: Performed By: #### C BC ####[facility] Ynwhrgvgau3533 [place] [phone]. Anjail Reagan MANUAL DIFF REQ NO Normal [facility] Comment on above: Performed By: #### C BC ####[facility] Xvdaufdnhy9899 [place] [phone]. Anjali Reagan MCH (RBC) [Entitic mass] 27.5 pg Normal 25.9-34.0 [facility] Comment on above: Performed By: #### C BC ####[facility] Qgkwsuycdg3209 [place] [address]Dr. Anjali Reagan MCHC (RBC) [Mass/Vol] 31.3 g/dL Normal 29.9-35.2 [facility] Comment on above: Performed By: #### C BC ####[facility] Iglddsgktw5063 [place] [address]Dr. Anjali Tez MCV (RBC) [Entitic vol] 87.6 fL Normal 80.0-94.0 [facility] Comment on above: Performed By: #### C BC ####[facility] Qffdagqqtc3279 [place] [phone]. Anjali Tez MONO # 0.7 103/ul Normal 0.3-0.8 [facility] Comment on above: Performed By: #### C BC ####[facility] Nrworkfjgt5841 [place] [phone]. Biancaramona Reagan Monocytes/100 WBC (Bld) 10.3 % Normal 1.7-12.0 [facility] Comment on above: Performed By: #### C BC ####[facility] Iltrjdqbwd4919 [place] [phone]. Biancaramona Tez NEUT # 5.1 103/ul Normal 1.4-6.5 [facility] Comment on above: Performed By: #### C BC ####[facility] Xkzmbhsmcr8532 [place] [phone]. Anjali Reagan Neutrophils/100 WBC (Bld) 71.8 % Normal 43.0-75.0 [facility] Comment on above: Performed By: #### C BC ####[facility] Ogmuuuxywa9590 [place] [phone]. Anjali Reagan Platelet mean volume (Bld) [Entitic vol] 9.4 fL Critically low 9.5-13.5 The [facility] Comment on above: Performed By: #### C BC ####[facility] Qtgegsqsia5671 [place] [phone]. Anjali Reagan PLT 249 103/ul Normal 150-450 The [facility] Comment on above: Performed By: #### C BC ####[facility] Ujxaofkfij8893 [place] [address]Dr. Anjali Reagan RBC 4.37 106/ul Critically low 4.70-6.10 [facility] Comment on above: Performed By: #### C BC ####[facility] Ewlmjfnrwn7981 [place] [address]Dr. Anjali Reagan WBC 7.1 103/ul Normal 4.0-11.0 The [facility] Comment on above: Performed By: #### C BC ####[facility] Gkjomdxkoh2711 [place] [address]Dr. Anjali Tez CRPon 09-09-2021 CRP 1.9 mg/dL Critically high <=1.0 [facility] Comment on above: Performed By: #### C RP, CMP ####[facility] Qcfgmdsjun523[address] [place], [place] [address]Dr. Anjali Tez GRAM STAINon 09-09-2021 COMMENTS NO ORGANISMS OBSERVED Normal The [facility] Comment on above: Performed By: #### G STAIN ####[facility] Ifqztkigvr0198 [place] [address]Dr. Anjali Reagan DIPHTHEROIDS Normal The [facility] Comment on above: Performed By: #### G STAIN ####[facility] Yasxccajqs669[address] [place], [place] [address]Dr. Anjali Reagan EPITHELIALS Normal The [facility] Comment on above: Performed By: #### G STAIN ####[facility] Vaxhgwpzvj7453 [place] [address]Dr. Anjali Reagan FUNGAL ELEMENTS Normal [facility] Comment on above: Performed By: #### G STAIN ####[facility] Nsxbtxuaso4006 [place] [address]Dr. Anjali Reagan GRAM NEG BACILLI Normal [facility] Comment on above: Performed By: #### G STAIN ####[facility] Dupqfsrsxh6896 [place] [address]Dr. Anjali Reagan GRAM NEG DIPPLOCOCCI Normal The [facility] Comment on above: Performed By: #### G STAIN ####[facility] Jxwxgbhwbv7268 [place] [address]Dr. Anjali Reagan GRAM POS BACILLI Normal [facility] Comment on above: Performed By: #### G STAIN ####[facility] Zzrmjjzrqa6875[address] [place], [place] [address]Dr. Anjali Reagan GRAM POSITIVE COCCI Normal [facility] Comment on above: Performed By: #### G STAIN ####[facility] Tgfhitpblo1360[address] [place], [place] [address]Dr. Anjali Reagan GRAM STAIN SOURCE Left foot lateral Normal [facility] Comment on above: Performed By: #### G STAIN ####[facility] Wcnytagldj0028[address] [place], [place] [address]Dr. Anjali Reagan GS_DIPTH Normal The [facility] Comment on above: Performed By: #### G STAIN ####[facility] Mweautsqao8617[address] [place], [place] [address]Dr. Anjali Reagan WBC RARE Normal The [facility] Comment on above: Performed By: #### G STAIN ####[facility] Jtgiiiwjmz7465[address] [place], [place] [address]Dr. Anjali Reagan PROF 14(COMP METB)on 022 Albumin [Mass/Vol] 3.5 g/dL Normal 3.4-5.0 [facility] Comment on above: Performed By: #### C RP, CMP ####[facility] Greazyjkgy8977[address] [place], [place] [address]Dr. Anjali Reagan Albumin/Globulin [Mass ratio] 0.8 {ratio} Normal [facility] Comment on above: Performed By: #### C RP, CMP ####[facility] Pksjwelczw7381 [place] [address]Dr. Anjali Reagan ALP [Catalytic activity/Vol] 136 U/L Critically high 46-116 [facility] Comment on above: Performed By: #### C RP, CMP ####[facility] Duozerpipq5757 [place] [address]Dr. Anjali Reagan ALT [Catalytic activity/Vol] 34 U/L Normal 16-63 [facility] Comment on above: Performed By: #### C RP, CMP ####[facility] Knowbpxfjj2127[address] [place], [place] [address]Dr. Anjali Reagan Anion gap [Moles/Vol] 12.9 mmol/L Normal Th e [facility] Comment on above: Performed By: #### C RP, CMP ####[facility] Jpfwwenxix3864[address] [place], [place] [address]Dr. Anjali Reagan AST [Catalytic activity/Vol] 27 U/L Normal 15-37 [facility] Comment on above: Performed By: #### C RP, CMP ####[facility] Esjjcndiaf6556[address] [place], [place] [address]Dr. Anjali Reagan Bilirubin [Mass/Vol] 0.4 mg/dL Normal 0.2-1.0 The [facility] Comment on above: Performed By: #### C RP, CMP ####[facility] Nwelabuzii9503[address] [place], [place] [address]Dr. Anjali Reagan Calcium [Mass/Vol] 9.7 mg/dL Normal 8.5-10.1 [facility] Comment on above: Performed By: #### C RP, CMP ####[facility] Lrnlcrlmac7020[address] [place], [place] [address]Dr. Anjali Reagan Chloride [Moles/Vol] 103 mmol/L Normal 98-107 The [facility] Comment on above: Performed By: #### C RP, CMP ####[facility] Ojfswehndx3515[address] [place], [place] [address]Dr. Anjali Reagan CO2 [Moles/Vol] 28.9 mmol/L Normal 21.0-32.0 [facility] Comment on above: Performed By: #### C RP, CMP ####[facility] Hvsdbnwhmf9060 [place] [phone]. Anjali Reagan Creatinine [Mass/Vol] 1.57 mg/dL Critically high 0.70-1.30 [facility] Comment on above: Performed By: #### C RP, CMP ####[facility] Pazkewjxsu9601[address] [place], [place] [address]Dr. Anjali Reagan EGFR-AF RWANDAN 54 mL/min/1.73m2 Critically low >=60 [facility] Comment on above: Performed By: #### C RP, CMP ####[facility] Ounlnqmacd727[address] [place], [place] [address]Dr. Anjali Reagan EGFR-NON AF RWANDAN 45 mL/min/1.73m2 Critically low >=60 [facility] Comment on above: Performed By: #### C RP, CMP ####[facility] Hqnnnugnso6089[address] [place], [place] [address]Dr. Anjali Reagan Globulin (S) [Mass/Vol] 4.5 g/dL Normal [facility] Comment on above: Performed By: #### C RP, CMP ####[facility] Dnuuycigax9306[address] [place], [place] [address]Dr. Anjali Reagan Glucose [Mass/Vol] 174 mg/dL Critically high 74-106 [facility] Comment on above: Performed By: #### C RP, CMP ####[facility] Dwyaktrsei5104[address] [place], [place] [address]Dr. Anjali Reagan Potassium [Moles/Vol] 4.8 mmol/L Normal 3.5-5.1 [facility] Comment on above: Performed By: #### C RP, CMP ####[facility] Vghzpktnbd593[address] [place], [place] [address]Dr. Anjali Reagan Protein [Mass/Vol] 8.0 g/dL Normal 6.4-8.2 [facility] Comment on above: Performed By: #### C RP, CMP ####[facility] Hwgiegkjuh5512[address] [place], [place] [address]Dr. Anjali Reagan Sodium [Moles/Vol] 140 mmol/L Normal 136-145 [facility] Comment on above: Performed By: #### C RP, CMP ####[facility] Qorfmncelx1844 [place] [phone]. Anjali Reagan Urea nitrogen [Mass/Vol] 34.0 mg/dL Critically high 7.0-18 .0 [facility] Comment on above: Performed By: #### C RP, CMP ####[facility] Zzuwgrowdi0900 [place] [phone]. Anjali Reagan Urea nitrogen/Creatinine [Mass ratio] 21.7 mg/mg Normal [facility] Comment on above: Performed By: #### C RP, CMP ####[facility] Swltfacwfa1053 [place] [phone]. Anjali Reagan XR FOOT RT MIN 3 VIEWSon XR FOOT RT MIN 3 VIEWS Normal Th [facility] XR ANKLE RT MIN 3 VIEWSon XR ANKLE RT MIN 3 VIEWS Normal T he [facility] CULTURE BLOODon 08-26-2021 Microscopic examination of blood, culture Culture Observations: NO GROWTH AT 5 DAYS. Normal [facility] Comment on above: Performed By: #### B LDCX2 ####[facility] Ncrvtboumb6735[address] [place], [place] [address]Dr. Anjali Reagan Microscopic examination of blood, culture Culture Observations: NO GROWTH AT 5 DAYS. Normal [facility] Comment on above: Performed By: #### B LDCX1 ####[facility] Lgyomseiad2956 [place] [address]Dr. Anjali Reagan PREALBUMINon 08-26-2021 Prealbumin [Mass/Vol] 14 mg/dL Normal [facility] Comment on above: Performed By: #### P REALBL ####[facility] Padjljuxfh[address] [place], [place] [address]Dr. Anjali Reagan CBC W MANUAL DIFFon 08-25-19 ANISOCYTOSIS SLIGHT Normal [facility] Comment on above: Performed By: #### Uzari PERSAUD ####[facility] Odwiomguqq2588 [place] [address]Dr. Anjali Reagan ATYPICAL LYMPH # Normal [facility] Comment on above: Performed By: #### C CORI ####[facility] Nuxgcakmpf3028 [place] [address]Dr. Yiramona Reagan ATYPICAL LYMPH % Normal [facility] Comment on above: Performed By: #### C CORI ####[facility] Snnrbngdnk9092 [place] [address]Dr. Yilan Reagan BAND # Normal 0.0-0.3 [facility] Comment on above: Performed By: #### C CORI ####[facility] Ugzofsoodi6207 [place] [address]Dr. Yilan Reagan BAND % Normal 0-5 [facility] Comment on above: Performed By: #### C CORI ####[facility] Gpbsxadthn3[address] [place], [place] [address]Dr. Yilan Reagan BASOM # 0.00 103/ul Normal 0.00-0.10 [facility] Comment on above: Performed By: #### C CORI ####[facility] Qgpsmeqhcu9206[address] [place], [place] [address]Dr. Yilan Reagan BASOM % 0.0 % Critically low 0.2-2.0 [facility] Comment on above: Performed By: #### C CORI ####[facility] Amiicglkqb670[address] [place], [place] [address]Dr. Yilan Reagan BLAST # Normal [facility] Comment on above: Performed By: #### C CORI ####[facility] Ihretsxkwr0427[address] [place], [place] [address]Dr. Yilan Reagan BLAST % Normal [facility] Comment on above: Performed By: #### C CORI ####[facility] Nufcetsedw1053 [place] [address]Dr. Anjali Reagan CORRECTED WBC Normal 4.0-11.0 [facility] Comment on above: Performed By: #### C CORI ####[facility] Effddthyhe5045[address] [place], [place] [address]Dr. Yilan Reagan EOS # 0.34 103/ul Normal 0.00-0.70 [facility] Comment on above: Performed By: #### C CORI ####[facility] Eknkyihxxj6800 [place], [place] [address]Bc. Anjali Reagan EOS% 3.0 % Normal 0.9-7.0 [facility] Comment on above: Performed By: #### C CORI ####[facility] Lzbqhfelxn9273 [place], [place] [address]Yu. Anjali Reagan HCT 36.2 % Critically low 42.0-54.0 [facility] Comment on above: Performed By: #### C CORI ####[facility] Mzshqtlurt1999 [place], [place] [address]Ug. Anjali Reagan HGB 11.8 g/dl Critically low 14.0-18.0 [facility] Comment on above: Performed By: #### C CORI ####[facility] Kulrketfnp9005 [place] [phone]. Anjali Reagan LYMPHM # 1.03 103/ul Critically low 1.20-3.80 [facility] Comment on above: Performed By: #### C CORI ####[facility] Wyxeqyally3086 [place] [phone]. Anjali Reagan LYMPHM% 9.0 % Critically low 20.5-60.0 [facility] Comment on above: Performed By: #### C CORI ####[facility] Lykygjknrg6432 [place] [phone]. Anjali Reagan MCH 28.0 pg Normal 25.9-34.0 The [facility] Comment on above: Performed By: #### C CORI ####[facility] Kmtlbojytc6315 [place], [place] [address]Ur. Anjali Reagan MCHC 32.6 g/dl Normal 29.9-35.2 [facility] Comment on above: Performed By: #### C CORI ####[facility] Vxiqxljwci3702 [place] [phone]. Anjali Reagan MCV 85.8 fL Normal 80.0-94.0 [facility] Comment on above: Performed By: #### C CORI ####[facility] Btwopoqryy2496 [place] [phone]. Anjali Reagan METAMYELOCYTE # Normal [facility] Comment on above: Performed By: #### C BCMAN ####[facility] Qjhtxsidhd4615 [place] [phone]. Anjali Reagan METAMYELOCYTE % Normal [facility] Comment on above: Performed By: #### C BCFIONA ####[facility] Ffkuafdnct7674 [place] [phone]. Anjali Reagan MONOM# 1.61 103/ul Critically high 0.30-0.80 [facility] Comment on above: Performed By: #### C CORI ####[facility] Ornzwnhelo3439 [place] [phone]. Anjali Reagan MONOM% 14.0 % Critically high 1.7-12.0 [facility] Comment on above: Performed By: #### C CORI ####[facility] Tybwhrcpsq8101 [place] [phone]. Anjali Reagan MPV 8.9 fL Critically low 9.5-13.5 [facility] Comment on above: Performed By: #### C CORI ####[facility] Ynxsyqbvft5143 [place] [phone]. Anjali Reagan MYELOCYTE # Normal [facility] Comment on above: Performed By: #### C CORI ####[facility] Ayyudqbaho2662 [place] [phone]. Anjali Reagan MYELOCYTE % Normal [facility] Comment on above: Performed By: #### C BCFIONA ####[facility] Vytivtohvc3464 [place] [phone]. Anjali Reagan NRBC Normal [facility] Comment on above: Performed By: #### C CORI ####[facility] Ybjzlhgjdd1902 [place] [phone]. Anjali Reagan PLT 263 103/ul Normal 150-450 [facility] Comment on above: Performed By: #### C CORI ####[facility] Inszrapqlv6660 [place] [phone]. Anjali Reagan RBC 4.22 106/ul Critically low 4.70-6.10 [facility] Comment on above: Performed By: #### Uzair PERSAUD ####[facility] Ackkdoljen1881 [place] [address]Dr. Anjali Reagan RDW 16.0 % Critically high 11.0-15.0 [facility] Comment on above: Performed By: #### Uzair PERSAUD ####[facility] Qlijouhqco9233 [place] [address]Dr. Anjali Reagan SEG # 8.51 103/ul Critically high 1.40-6.50 [facility] Comment on above: Performed By: #### Uzair PERSAUD ####[facility] Cvactbevzc4644 [place] [address]Dr. Anjali Tez SEG % 74.0 % Normal 43.0-75.0 [facility] Comment on above: Performed By: #### Uzair PERSAUD ####[facility] Rydaozwukn4226 [place] [address]Dr. Anjali Tez WBC 11.5 103/ul Critically high 4.0-11.0 [facility] Comment on above: Performed By: #### Uzair PERSAUD ####[facility] Haooytcgeq277[address] [place], [place] [address]DrVeronica Anjali Tez CRPon 08-24-2021 CRP 11.6 mg/dL Critically high <=1.0 [facility] Comment on above: Performed By: #### C RP, CMP ####[facility] Rymolhdmfy0[address] [place], [place] [address]DrVeronica Reagan PROF 14(COMP METB)on 022 Albumin [Mass/Vol] 3.2 g/dL Critically low 3.4-5.0 [facility] Comment on above: Performed By: #### C RP, CMP ####[facility] Gexxmpvvxe0944 [place] [address]Dr. Anjali Reagan Albumin/Globulin [Mass ratio] 0.7 {ratio} Normal [facility] Comment on above: Performed By: #### C RP, CMP ####[facility] Rgeisznmiu3562 [place] [address]Dr. Anjali Reagan ALP [Catalytic activity/Vol] 107 U/L Normal 46-116 [facility] Comment on above: Performed By: #### C RP, CMP ####[facility] Zxunloqyhq7344[address] [place], [place] [address]Dr. Anjali Reagan ALT [Catalytic activity/Vol] 57 U/L Normal 16-63 [facility] Comment on above: Performed By: #### C RP, CMP ####[facility] Beieemlvxp589[address] [place], [place] [address]Dr. Anjali Reagan Anion gap [Moles/Vol] 13.7 mmol/L Normal [facility] Comment on above: Performed By: #### C RP, CMP ####[facility] Zwasvfmjwx7358[address] [place], [place] [address]Dr. Anjali Reagan AST [Catalytic activity/Vol] 40 U/L Critically high 15-37 [facility] Comment on above: Performed By: #### C RP, CMP ####[facility] Rydsufljec7996[address] [place], [place] [address]Dr. Anjali Reagan Bilirubin [Mass/Vol] 0.6 mg/dL Normal 0.2-1.0 [facility] Comment on above: Performed By: #### C RP, CMP ####[facility] Qvpnswrcmu028[address] [place], [place] [address]Dr. Anjali Reagan Calcium [Mass/Vol] 9.7 mg/dL Normal 8.5-10.1 [facility] Comment on above: Performed By: #### C RP, CMP ####[facility] Mbkmchjnic7767[address] [place], [place] [address]Dr. Anjali Reagan Chloride [Moles/Vol] 98 mmol/L Normal 98-107 [facility] Comment on above: Performed By: #### C RP, CMP ####[facility] Guxgwbnrhc6512[address] [place], [place] [address]Dr. Anjali Reagan CO2 [Moles/Vol] 30.0 mmol/L Normal 21.0-32.0 [facility] Comment on above: Performed By: #### C RP, CMP ####[facility] Ayrtoctnit5242 [place] [phone]. Anjali Reagan Creatinine [Mass/Vol] 1.73 mg/dL Critically high 0.70-1.30 [facility] Comment on above: Performed By: #### C RP, CMP ####[facility] Lqzrpkalkw[address] [place], [place] [address]Dr. Anjali Reagan EGFR-AF RWANDAN 49 mL/min/1.73m2 Critically low >=60 [facility] Comment on above: Performed By: #### C RP, CMP ####[facility] Uxcjwuuxfr[address] [place], [place] [address]Dr. Anjali Reagan EGFR-NON AF RWANDAN 40 mL/min/1.73m2 Critically low >=60 [facility] Comment on above: Performed By: #### C RP, CMP ####[facility] Bqprwmwvwl9967[address] [place], [place] [address]Dr. Anjali Reagan Globulin (S) [Mass/Vol] 4.7 g/dL Normal [facility] Comment on above: Performed By: #### C RP, CMP ####[facility] Pzpezhsgnz0083[address] [place], [place] [address]Dr. Anjali Reagan Glucose [Mass/Vol] 92 mg/dL Normal 74-106 [facility] Comment on above: Performed By: #### C RP, CMP ####[facility] Uoapwtwmsw8794[address] [place], [place] [address]Dr. Anjali Reagan Potassium [Moles/Vol] 3.7 mmol/L Normal 3.5-5.1 [facility] Comment on above: Performed By: #### C RP, CMP ####[facility] Byrfnplkjz[address] [place], [place] [address]Dr. Anjali Reagan Protein [Mass/Vol] 7.9 g/dL Normal 6.4-8.2 [facility] Comment on above: Performed By: #### C RP, CMP ####[facility] Jpjikjuabx36[address] [place], [place] [address]Dr. Anjali Reagan Sodium [Moles/Vol] 138 mmol/L Normal 136-145 [facility] Comment on above: Performed By: #### C RP, CMP ####[facility] Sjyochwqiv4566 [place], [place] [address]Mr. Anjali Reagan Urea nitrogen [Mass/Vol] 50.0 mg/dL Critically high 7.0-18 .0 [facility] Comment on above: Performed By: #### C RP, CMP ####[facility] Bmzrtfy[address]y94[address] [place], [place] [address]Ij. Anjali Reagan Urea nitrogen/Creatinine [Mass ratio] 28.9 mg/mg Normal [facility] Comment on above: Performed By: #### C RP, CMP ####[facility] Kvxuasriox3855 [place], [place] [address]Ik. Anjali Reagan SED RATE [facility] 2021 SED RATE 17 mm/hr Normal <=20 [facility] Comment on above: Performed By: #### S EDR ####[facility] Wooiohypes1934 [place] [id number]. Anjali Reagan CBC (INCLUDES DIFF/PLT)on Basophils (Bld) [#/Vol] 0.034 10*3/uL Normal 0-200 [facility] Comment on above: Performed By: #### 6 399, 496, 718, 98672 #### [facility] [place] [address] Crm Business Analyst: Juan Meraz MD Basophils/100 WBC (Bld) 0.3 % Normal [facility] Comment on above: Performed By: #### 6 399, 496, 718, 60646 #### [facility] [place] [address] Crm Business Analyst: Juan Meraz MD Eosinophils (Bld) [#/Vol] 0.023 10*3/uL Normal 15-500 [facility] Comment on above: Performed By: #### 6 399, 496, 718, 08980 #### [facility] [place] [address] Crm Business Analyst: Juan Meraz MD Eosinophils/100 WBC (Bld) 0.2 % Normal [facility] Comment on above: Performed By: #### 6 399, 496, 718, 84803 #### [facility] of [place] [address] Crm Business Analyst: Juan Meraz MD Erythrocyte distribution width (RBC) [Ratio] 15.6 % High 11.0-15.0 [facility] Comment on above: Performed By: #### 6 399, 496, 718, 09003 #### [facility] of [place] [address] Crm Business Analyst: Juan Meraz MD Hematocrit (Bld) [Volume fraction] 38.9 % Normal 38.5-50.0 [facility] Comment on above: Performed By: #### 6 399, 496, 718, 94203 #### [facility] of [place] [address] Crm Business Analyst: Juan Meraz MD Hemoglobin (Bld) [Mass/Vol] 12.7 g/dL Low 13.2-17.1 [facility] Comment on above: Performed By: #### 6 399, 496, 718, 17825 #### [facility] of [place] [address] Crm Business Analyst: Juan Meraz MD Lymphocytes (Bld) [#/Vol] 0.531 10*3/uL Low 850-3900 [facility] Comment on above: Performed By: #### 6 399, 496, 718, 00721 #### [facility] [place] [address] Crm Business Analyst: Juan Meraz MD Lymphocytes/100 WBC (Bld) 4.7 % Normal [facility] Comment on above: Performed By: #### 6 399, 496, 718, 73854 #### [facility] of [place] [address] Crm Business Analyst: Juan Meraz MD MCH (RBC) [Entitic mass] 28.2 pg Normal 27.0-33.0 [facility] Comment on above: Performed By: #### 6 399, 496, 718, 67379 #### [facility] of [place] [address] Crm Business Analyst: Juan Meraz MD MCHC (RBC) [Mass/Vol] 32.6 g/dL Normal 32.0-36.[address] [facility] Comment on above: Performed By: #### 6 399, 496, 718, 10311 #### [facility] of [place] [address] Crm Business Analyst: Juan Meraz MD MCV (RBC) [Entitic vol] 86.4 fL Normal 80.0-100.0 [facility] Comment on above: Performed By: #### 6 399, 496, 718, 21685 #### [facility] of [place] [address] Crm Business Analyst: Juan Meraz MD Monocytes (Bld) [#/Vol] 1.119 10*3/uL High 200-950 [facility] Comment on above: Performed By: #### 6 399, 496, 718, 40104 #### [facility] [place] [address] Crm Business Analyst: Juan Meraz MD Monocytes/100 WBC (Bld) 9.9 % Normal [facility] Comment on above: Performed By: #### 6 399, 496, 718, 83363 #### [facility] [place] [address] Crm Business Analyst: Juan Meraz MD Neutrophils (Bld) [#/Vol] 9.594 10*3/uL High 8166-7001 [facility] Comment on above: Performed By: #### 6 399, 496, 718, 79894 #### [facility] of [place] [address] Crm Business Analyst: Juan Meraz MD Neutrophils/100 WBC (Bld) 84.9 % Normal [facility] Comment on above: Performed By: #### 6 399, 496, 718, 00979 #### [facility] [place] [address] Crm Business Analyst: Juan Meraz MD Platelet mean volume (Bld) [Entitic vol] 10.1 fL Normal 7.5-12.5 [facility] Comment on above: Performed By: #### 6 399, 496, 718, 92958 #### [facility] [place] [address] Crm Business Analyst: Juan Meraz MD Platelets (Bld) [#/Vol] 267 10*3/uL Normal 140-400 [facility] Comment on above: Performed By: #### 6 399, 496, 718, 60433 #### [facility] [place] [address] Crm Business Analyst: Juan Meraz MD RBC (Bld) [#/Vol] 4.50 10*6/uL Normal 4.20-5.80 [facility] Comment on above: Performed By: #### 6 399, 496, 718, 93376 #### [facility] [place] [address] Crm Business Analyst: Juan Meraz MD WBC (Bld) [#/Vol] 11.3 10*3/uL High 3.8-10.8 [facility] Comment on above: Performed By: #### 6 399, 496, 718, 66212 #### [facility] [place] [address] Crm Business Analyst: Juan Meraz MD HEMOGLOBIN A1con 08-23-2021 HEMOGLOBIN [...] Performed By: #### 6 399, 496, 718, 29998 #### [facility] [address], [address] [place] [address] Crm Business Analyst: Juan Meraz MD PHOSPHATE ( PHOSPHORUS)on 08-23-2021 Phosphate [Mass/Vol] 3.7 mg/dL Normal 2.5-4.5 [facility] Comment on above: Order Comment: PATIE NT UNABLE TO VOID; ADVISED TO RETURN FOR COLLECTION. Performed By: #### 6 399, 496, 718, 96364 #### [facility] [address], [address] [place] [address] Crm Business Analyst: Juan Meraz MD PTH, INTACT WITHOUT CALCIUMo [...] Performed By: #### 6 399, 496, 718, 90115 #### [facility] [address], [address] [place] [address] Crm Business Analyst: Juan Meraz MD VITAMIN D,25-OH,TOTAL,IAon 0 08-23-2021 [...] D, (D2,D3), LC/MS/MS is recommended: order code 15467 (patients >2yrs). See Note 1 Note 1 For additional information, please refer to http://education.Getonic/faq/SNM578 (This link is being provided for informational/ educational purposes only.) Performed By: #### 6 399, 496, 718, 83665 #### [facility] [address] [facility], [address] [place] [address] Crm Business Analyst: Juan Meraz MD CBC W MANUAL DIFFon 07-06-19 22 ATYPICAL LYMPH # Normal [facility] Comment on above: Performed By: #### C BCMAN ####[facility] Yonybeziij[address] [place] [address]Dr. Yilan Reagan ATYPICAL LYMPH % Normal [facility] Comment on above: Performed By: #### C BCMAN ####[facility] Lnuaqztcpl0739 [place] [address]Dr. Yilan Reagan BAND # 0.1 103/ul Normal 0.0-0.3 [facility] Comment on above: Performed By: #### C BCMAN ####[facility] Ofcbjhaesf9543 [place] [address]Dr. Yilan Reagan BAND % 1 % Normal 0-5 [facility] Comment on above: Performed By: #### C BCMAN ####[facility] Oqyptyscdm1449 [place] [address]Dr. Yilan Reagan BASOM # 0.00 103/ul Normal 0.00-0.10 The [facility] Comment on above: Performed By: #### C BCMAN ####[facility] Fcyjtetncn4697 [place] [address]Dr. Yilan Reagan BASOM % 0.0 % Critically low 0.2-2.0 [facility] Comment on above: Performed By: #### C BCMAN ####[facility] Fjjjbptsrb8000 [place] [address]Dr. Yilan Reagan BLAST # Normal The [facility] Comment on above: Performed By: #### C BCMAN ####[facility] Lavvzwamtt4890 [place] [id number]. Anjali Reagan BLAST % Normal The [facility] Comment on above: Performed By: #### C BCFIONA ####[facility] Mizbzfoehg6642 [place] [address]Dr. Anjali Reagan CORRECTED WBC Normal 4.0-11.0 [facility] Comment on above: Performed By: #### C BCFIONA ####[facility] Fuuugdbgks0250 [place] [address]Dr. Anjali Reagan EOS # 0.16 103/ul Normal 0.00-0.70 The [facility] Comment on above: Performed By: #### C CORI ####[facility] Jybulmrmuj7164 [place] [address]Dr. Anjali Reagan EOS% 2.0 % Normal 0.9-7.0 The [facility] Comment on above: Performed By: #### C CORI ####[facility] Obczuatnyk3281 [place] [address]Dr. Anjali Reagan HCT 35.3 % Critically low 42.0-54.0 [facility] Comment on above: Performed By: #### C CORI ####[facility] Vbqypujkbm5176 [place] [address]Dr. Anjali Reagan HGB 11.4 g/dl Critically low 14.0-18.0 [facility] Comment on above: Performed By: #### C BCFIONA ####[facility] Jsqjfyvjde7035 [place] [address]Dr. Anjali Reagan LYMPHM # 0.70 103/ul Critically low 1.20-3.80 [facility] Comment on above: Performed By: #### C BCFIONA ####[facility] Betbbljswo8753 [place] [address]Dr. Anjali Reagan LYMPHM% 9.0 % Critically low 20.5-60.0 [facility] Comment on above: Performed By: #### C BCFIONA ####[facility] Muuhgbtyeu8893 [place] [address]Dr. Anjali Reagan MCH 27.5 pg Normal 25.9-34.0 The [facility] Comment on above: Performed By: #### C CORI ####[facility] Gvvpywkwjg1873 [place] [address]Dr. Anjali Reagan MCHC 32.3 g/dl Normal 29.9-35.2 The [facility] Comment on above: Performed By: #### C CORI ####[facility] Ydffpxahcb0900 [place] [address]Dr. Anjali Reagan MCV 85.3 fL Normal 80.0-94.0 The [facility] Comment on above: Performed By: #### C BCFIONA ####[facility] Epgvbmmrtw5763 [place] [phone]. Anjali Reagan METAMYELOCYTE # Normal [facility] Comment on above: Performed By: #### C CORI ####[facility] Dmnsthfeea2906 [place] [address]Dr. Anjali Reagan METAMYELOCYTE % Normal [facility] Comment on above: Performed By: #### C CORI ####[facility] [address] [place], [place] [address]Dr. Anjali Reagan MONOM# 1.09 103/ul Critically high 0.30-0.80 [facility] Comment on above: Performed By: #### C CORI ####[facility] Ktgqbnypnn5152 [place] [address]Dr. Anjali Reagan MONOM% 14.0 % Critically high 1.7-12.0 [facility] Comment on above: Performed By: #### C CORI ####[facility] Kuqejssqbv7652 [place] [address]Dr. Anjali Reagan MPV 9.6 fL Normal 9.5-13.5 The [facility] Comment on above: Performed By: #### C CORI ####[facility] Obluqznumb6436 [place] [address]Dr. Anjali Reagan MYELOCYTE # Normal The [facility] Comment on above: Performed By: #### C CORI ####[facility] Fbsiwvptwk0579 [place] [phone]. Yilan Reagan MYELOCYTE % Normal The [facility] Comment on above: Performed By: #### C BCMAN ####[facility] Jhfrkwaogl7827 [place], [place] [address]Tt. Anjali Reagan NRBC Normal The [facility] Comment on above: Performed By: #### C BCMAN ####[facility] Htxhedxzqp6829 [place], [place] [address]Vm. Anjali Reagan PLT 119 103/ul Critically low 150-450 [facility] Comment on above: Performed By: #### C BCMAN ####[facility] Npckkmncdm5239 [place], [place] [address]Ib. Anjali Reagan RBC 4.14 106/ul Critically low 4.70-6.10 [facility] Comment on above: Performed By: #### C SAUMYAMAN ####[facility] Dsksycketx8602 [place], [place] [address]Dy. Anjali Reagan RDW 16.1 % Critically high 11.0-15.0 [facility] Comment on above: Performed By: #### C BCMAN ####[facility] Lcslwjpywi6492 [place], [place] [address]Rs. Anjali Reagan SEG # 5.77 103/ul Normal 1.40-6.50 [facility] Comment on above: Performed By: #### C BCMAN ####[facility] Tabklbrfwo0135 [place], [place] [address]Wr. Anjali Reagan SEG % 74.0 % Normal 43.0-75.0 [facility] Comment on above: Performed By: #### C BCMAN ####[facility] Lmpgmgvdgk4993 [place], [place] [address]Gi. Anjali Reagan WBC 7.8 103/ul Normal 4.0-11.0 [facility] Comment on above: Performed By: #### C BCMAN ####[facility] Taoswpfrkz7304 [place] [phone]. Anjali Reagan CRPon 07-05-2021 CRP [Mass/Vol] mg/L Critically high <=1.0 [facility] Comment on above: Performed By: #### C RP, BMP ####[facility] Yrbfjgwjvk2310 [place] [address]Dr. Anjali Reagan PROF CHEM 8 (BAS METB)on Anion gap [Moles/Vol] 10.1 mmol/L Normal [facility] Comment on above: Performed By: #### C RP, BMP ####[facility] Wotyatwfwx8252 [place] [address]Dr. Biancaramona Tez Calcium [Mass/Vol] 9.6 mg/dL Normal 8.5-10.1 [facility] Comment on above: Performed By: #### C RP, BMP ####[facility] Zdguxiwvbw[address] [place], [place] [address]Dr. Anjali Reagan Chloride [Moles/Vol] 100 mmol/L Normal 98-107 [facility] Comment on above: Performed By: #### C RP, BMP ####[facility] Iehtnnwrgh[address] [place], [place] [address]Dr. Anjali Reagan CO2 [Moles/Vol] 30.4 mmol/L Critically high 22.0-30.0 [facility] Comment on above: Performed By: #### C RP, BMP ####[facility] Lwdwimxlrk[address] [place], [place] [address]Dr. Anjali Reagan Creatinine [Mass/Vol] 1.49 mg/dL Critically high 0.66-1.25 [facility] Comment on above: Performed By: #### C RP, BMP ####[facility] Kprqgqlhhw[address] [place], [place] [address]Dr. Anjali Reagan EGFR-AF RWANDAN 58 mL/min/1.73m2 Critically low >=60 The [facility] Comment on above: Performed By: #### C RP, BMP ####[facility] Aeeonxumni[address] [place], [place] [address]Dr. Anjali Reagan EGFR-NON AF RWANDAN 48 mL/min/1.73m2 Critically low >=60 [facility] Comment on above: Performed By: #### C RP, BMP ####[facility] Ifmnqekppw[address] [place], [place] [address]Dr. Anjali Reagan Glucose [Mass/Vol] 191 mg/dL Critically high 74-106 [facility] Comment on above: Performed By: #### C RP, BMP ####[facility] Czygwdtlly5253 [place] [address]Dr. Anjali Reagan Potassium [Moles/Vol] 4.5 mmol/L Normal 3.4-5.0 [facility] Comment on above: Performed By: #### C RP, BMP ####[facility] Yudzphvbzz[address] [place], [place] [address]Dr. Anjali Reagan Sodium [Moles/Vol] 136 mmol/L Critically low 137-145 [facility] Comment on above: Performed By: #### C RP, BMP ####[facility] Axeyhpqovu60[address] [place], [place] [address]Dr. Anjali Reagan Urea nitrogen [Mass/Vol] 33.0 mg/dL Critically high 7.0-18 .0 [facility] Comment on above: Performed By: #### C RP, BMP ####[facility] Nhohuesqiv7[address] [place], [place] [address]Dr. Anjali Reagan Urea nitrogen/Creatinine [Mass ratio] 22.1 mg/mg Normal [facility] Comment on above: Performed By: #### C RP, BMP ####[facility] Mzvahsocgb[address] [place], [place] [address]Dr. Anjali Reagan [facility] 26 mm/hr Critically high <=20 [facility] Comment on above: Performed By: #### S EDR ####[facility] Stagrevzbp[address] [place], [place] [address]Dr. Anjali Reagan XR ANKLE RT MIN 3 VIEWSon XR ANKLE RT MIN 3 VIEWS Normal [facility] CT ANKLE RT WO CONon 022 CT ANKLE RT WO CON Normal [facility] CULTURE OTHERon 05-19-2021 CULTURE OTHER Normal [facility] Comment on above: Performed By: #### O THCX ####[facility] Hyjhjceyqa[address] [place], [place] [address]Dr. Anjali Reagan CULTURE ANAEROBICon 02-14-20 22 CULTURE ANAEROBIC Specimen Comments: RIGHT FOOT ABSCESS Culture Observations: NO GROWTH OF ANAEROBES AT 72 HOURS. Normal The [facility] Comment on above: Performed By: #### A NACX ####[facility] Jqtepihboa4373 [place] [address]Dr. Anjali Reagan GRAM STAINon 05-16-2021 DIPHTHEROIDS Normal [facility] Comment on above: Performed By: #### G STAIN ####[facility] Inlwntvqui95[address] [place], [place] [address]Dr. Anjali Reagan EPITHELIALS Normal The [facility] Comment on above: Performed By: #### G STAIN ####[facility] Kkbxzdmhud[address] [place], [place] [address]Dr. Anjali Reagan FUNGAL ELEMENTS Normal [facility] Comment on above: Performed By: #### G STAIN ####[facility] Kccxracfng8[address] [place], [place] [address]Dr. Anjali Reagan GRAM NEG BACILLI MANY Normal The [facility] Comment on above: Performed By: #### G STAIN ####[facility] Ugkogqgack7[address] [place], [place] [address]Dr. Anjali Reagan GRAM NEG DIPPLOCOCCI Normal The [facility] Comment on above: Performed By: #### G STAIN ####[facility] [address]zjwkleaih[address] [place], [place] [address]Dr. Anjali Reagan GRAM POS BACILLI Normal [facility] Comment on above: Performed By: #### G STAIN ####[facility] Moumdcwtyp0[address] [place], [place] [address]Dr. Anjali Reagan GRAM POSITIVE COCCI Normal [facility] Comment on above: Performed By: #### G STAIN ####[facility] Ruoflmyqrq0604 [place] [address]Dr. Anjali Reagan GRAM STAIN SOURCE RIGHT FOOT Normal The [facility] Comment on above: Performed By: #### G STAIN ####[facility] Tyawczgyyg[address] [place], [place] [address]Dr. Anjali Reagan GS_DIPTH Normal [facility] Comment on above: Performed By: #### G STAIN ####[facility] Lfhpaflrda1084 [place], [place] [address]Ek. Anjali Reagan WBC MANY Normal [facility] Comment on above: Performed By: #### G STAIN ####[facility] Ugzhkgfwsc6505 [place], [place] [address]Sr. Anjali Reagan XR ANKLE RT MIN 3 VIEWSon XR ANKLE RT MIN 3 VIEWS Normal T he [facility] COMPREHENSIVE METABOLIC PANE Ray 04-16-2021 Albumin [Mass/Vol] 4.6 g/dL Normal 3.6-5.1 [facility] Comment on above: Performed By: #### 7 600, 496, 93867 #### [facility] [place] [address] Crm Business Analyst: Juan Meraz MD Albumin/Globulin [Mass ratio] 1.7 {ratio} Normal 1.0-2.5 [facility] Comment on above: Performed By: #### 7 600, 496, 91577 #### [facility] [place] [address] Crm Business Analyst: Juan Meraz MD ALP [Catalytic activity/Vol] 119 U/L Normal 35-144 [facility] Comment on above: Performed By: #### 7 600, 496, 29210 #### [facility] [place] [address] Crm Business Analyst: Juan Meraz MD ALT [Catalytic activity/Vol] 19 U/L Normal 9-46 [facility] Comment on above: Performed By: #### 7 600, 496, 07317 #### [facility] [place] [address] Crm Business Analyst: Juan Meraz MD AST [Catalytic activity/Vol] 20 U/L Normal 10-35 [facility] Comment on above: Performed By: #### 7 600, 496, 83909 #### [facility] [place] [address] Crm Business Analyst: Juan Meraz MD Bilirubin [Mass/Vol] 0.6 mg/dL Normal 0.2-1.2 [facility] Comment on above: Performed By: #### 7 600, 496, 00223 #### [facility] [place] [address] Crm Business Analyst: Juan Meraz MD Calcium [Mass/Vol] 9.9 mg/dL Normal 8.6-10.3 [facility] Comment on above: Performed By: #### 7 600, 496, 10679 #### [facility] [place] [address] Crm Business Analyst: Juan Meraz MD Chloride [Moles/Vol] 102 mmol/L Normal 98-110 [facility] Comment on above: Performed By: #### 7 600, 496, 71746 #### [facility] [place] [address] Crm Business Analyst: Juan Meraz MD CO2 [Moles/Vol] 28 mmol/L Normal 20-32 [facility] Comment on above: Performed By: #### 7 600, 496, 39819 #### [facility] [place] [address] Crm Business Analyst: Juan Meraz MD Creatinine [Mass/Vol] 1.59 mg/dL High 0.70-1.[address] [facility] Comment on above: Result Comment: For patients >49 years of age, the reference limit for Creatinine is approximately 13% higher for people identified as -Nigerian. Performed By: #### 7 600, 496, 67437 #### [facility] [place] [address] Crm Business Analyst: Juan Meraz MD eGFR NON-AFR. RWANDAN 46 mL/min/1.73m2 Low > OR = 60 [facility] Comment on above: Performed By: #### 7 600, 496, 55212 #### [facility] [place] [address] Crm Business Analyst: Juan Meraz MD GFR/1.73 sq M.predicted among blacks MDRD (S/P/Bld) [Vol rate/Area] 53 mL/min/{1.73_m2} Low > OR = 60 [facility] Comment on above: Performed By: #### 7 600, 496, 26966 #### [facility] [place] [address] Crm Business Analyst: Juan Meraz MD Globulin (S) [Mass/Vol] 2.7 g/dL Normal 1.9-3.7 [facility] Comment on above: Performed By: #### 7 600, 496, 97328 #### [facility] [address], [address] [place] [address] Crm Business Analyst: Juan Meraz MD Glucose [Mass/Vol] 176 mg/dL High 65-139 [facility] Comment on above: Result Comment: Non-fasting reference interval For someone without known diabetes, a glucose value >125 mg/dL indicates that they may have diabetes and this should be confirmed with a follow-up test. Performed By: #### 7 600, 496, 58535 #### [facility] [address], [address] [place] [address] Crm Business Analyst: Juan Meraz MD Potassium [Moles/Vol] 4.2 mmol/L Normal 3.5-5.[address] [facility] Comment on above: Performed By: #### 7 600, 496, 26739 #### [facility] [place] [address] Crm Business Analyst: Juan Meraz MD Protein [Mass/Vol] 7.3 g/dL Normal 6.1-8.1 [facility] Comment on above: Performed By: #### 7 600, 496, 43242 #### [facility] [place] [address] Crm Business Analyst: Juan Meraz MD Sodium [Moles/Vol] 138 mmol/L Normal 135-146 [facility] Comment on above: Performed By: #### 7 600, 496, 55265 #### [facility] [address], [address] [place] [address] Crm Business Analyst: Juan Meraz MD Urea nitrogen [Mass/Vol] 48 mg/dL High 7- [facility] Comment on above: Performed By: #### 7 600, 496, 70620 #### [facility] [address], [address] [place] [address] Crm Business Analyst: Juan Meraz MD Urea nitrogen/Creatinine [Mass ratio] 30 mg/mg High 6- [facility] Comment on above: Performed By: #### 7 600, 496, 48898 #### [facility] [address], [address] [place] [address] Crm Business Analyst: Juan Meraz MD HEMOGLOBIN A1con 04-16-2021 HEMOGLOBIN [...] 1 0165, 496, 905 #### [facility] [address], [address] [place] [address] Crm Business Analyst: Juan Meraz MD LIPID PANEL, STANDARDon 04-02 Cholesterol [Mass/Vol] 108 mg/dL Normal <200 [facility] Comment on above: Order Comment: FASTI NG:NO FASTING: NO Performed By: #### 7 600, 496, 95111 #### [facility] [address], [address] [place] [address] Crm Business Analyst: Juan Meraz MD Cholesterol in HDL [Mass/Vol] 47 mg/dL Normal > OR = 40 [facility] Comment on above: Order Comment: FASTI NG:NO FASTING: NO Performed By: #### 7 600, 496, 38721 #### [facility] [place] [address], [address] [place] [address] Crm Business Analyst: Juan Meraz MD Cholesterol in LDL [Mass/Vol] [...] equation in the estimation of LDL-C. Camden SS et al. TABITHA. 2013;310(19): 6438-2247 (http://education.Venddo.com.Motivapps/faq/PET902) Performed By: #### 7 600, 496, 48914 #### [facility] [place] [address] Crm Business Analyst: Juan Meraz MD Cholesterol.total/Choles terol in HDL [Mass ratio] 2.3 {ratio} Normal <5.0 [facility] Comment on above: Order Comment: FASTI NG:NO FASTING: NO Performed By: #### 7 600, 496, 51763 #### [facility] [place] [place] [address] [employer] Business Analyst: Juan Meraz MD NON HDL CHOLESTEROL 61 mg/dL (calc) Normal <130 [facility] Comment on above: Order Comment: FASTI NG:NO FASTING: NO Result Comment: For patients with diabetes plus 1 major ASCVD risk factor, treating to a non-HDL-C goal of <100 mg/dL (LDL-C of <70 mg/dL) is considered a therapeutic option. Performed By: #### 7 600, 496, 15091 #### [facility] [place] [address] [employer] Business Analyst: Juan Meraz MD Triglyceride [Mass/Vol] 102 mg/dL Normal <150 [facility] Comment on above: Order Comment: FASTI NG:NO FASTING: NO Performed By: #### 7 600, 496, 84765 #### [facility] [address], [address] [place] [address] [employer] Business Analyst: Juan Meraz MD CT ANKLE RT WO CONon 022 CT ANKLE RT WO CON Normal [facility] XR ANKLE RT MIN 3 VIEWSon XR ANKLE RT MIN 3 VIEWS Normal T [facility] ACID FAST SMEAR AND CXon Acid Fast Culture Negative Normal [facility] Comment on above: Result Comment: No a jr fast bacilli isolated after 6 weeks. Performed By: #### A FB ####[facility] Khcywkoobu2873 [place] [address]Dr. Biancalan Reagan Acid Fast Smear Negative Normal [facility] Comment on above: Performed By: #### A FB ####[facility] Edetkbnvej[address] [place], [place] [id number]. Anjali [employer]imen Processing Direct Inoculation [facility] Comment on above: Performed By: #### A FB ####[facility] Labhxdzzcd9201[address] [place], [place] [id number]. Anjali Reagan ACID FAST SMEAR AND CXon Acid Fast Culture Negative Normal [facility] Comment on above: Result Comment: No a rj fast bacilli isolated after 6 weeks. Performed By: #### A FB ####[facility] Salwubgxqr346[address] [place], [place] [id number]. Biancalan Reagan Acid Fast Smear Negative Normal [facility] Comment on above: Performed By: #### A FB ####[facility] Xyxnqvtccm215[address] [place], [place] [address]Dr. Anjali [employer] Specimen Processing Tissue Grinding [facility] Comment on above: Performed By: #### A FB ####[facility] Wcwvormbzi357[address] [place], [place] [address]Dr. Biancalan [employer] Specimen Processing Direct Inoc[facility] Comment on above: Performed By: #### A FB ####[facility] Ijdhdvguwm4[address] [place], [place] [address]Dr. Anjali Reagan FUNGAL CULTUREon 03-15-2021 Fungus (Mycology) Culture Final report Normal [facility] Comment on above: Performed By: #### C XFUN ####[facility] Nxgphqcgwm45[address] [place], [place] [address]Dr. Anjali Reagan Fungus Stain Final report Normal [facility] Comment on above: Performed By: #### C XFUN ####[facility] Blrmdvdtlb544632 [address] [place], [place] [address]Dr. Anjali Reagan Result 1 Comment Normal [facility] Comment on above: Result Comment: MIRIAN/ Calcofluor preparation: no fungus observed. Performed By: #### C XFUN ####[facility] Dqxduxxdqe3977[address] [place], [place] [address]Dr. Anjali Reagan Result Comment: No y east or mold isolated after 4 weeks. FUNGAL CULTUREon 03-09-2021 Fungus (Mycology) Culture Final report Normal [facility] Comment on above: Performed By: #### C XFUN ####[facility] Akvublgsbo7016[address] [place], [place] [address]Dr. Anjali Reagan Fungus Stain Final report Normal [facility] Comment on above: Performed By: #### C XFUN ####[facility] Nteelupaje9603[address] [place], [place] [address]Dr. Anjali Reagan Result 1 Comment Normal [facility] Comment on above: Result Comment: MIRIAN/ Calcofluor preparation: no fungus observed. Performed By: #### C XFUN ####[facility] Fblshxpkka3713[address] [place], [place] [address]Dr. Anjali Reagan Result Comment: No y east or mold isolated after 4 weeks. XR ANKLE RT MIN 3 VIEWSon XR ANKLE RT MIN 3 VIEWS Normal T he [facility] Otolaryngology Office/Clinic Noteon 02-28-2021 Otolaryngology Office/Clinic [...] time. They were unable to travel to [place] as he required another right ankle surgery. [...] Dr. Freed. Previous pathology by physician in [place] about 1 year ago. PMHx of multiple [...] postauricular m (more content not included)... Normal [facility] CBC W MANUAL DIFFon 02-13-20 21 ATYPICAL LYMPH # Normal [facility] Comment on above: Performed By: #### C CORI ####[facility] Yzpaevkjba1540 [place] [address]Dr. Anjali Reagan ATYPICAL LYMPH % Normal [facility] Comment on above: Performed By: #### C CORI ####[facility] Iygpgandqa5459 [place] [address]Dr. Anjali Reagan BAND # 0.3 103/ul Normal 0.0-0.3 [facility] Comment on above: Performed By: #### C CORI ####[facility] Figiearigv8312 [place] [address]Dr. Anjali Reagan BAND % 4 % Normal 0-5 [facility] Comment on above: Performed By: #### C CORI ####[facility] Ptyjkgldep4511[address] [place], [place] [address]Dr. Anjali Reagan BASOM # 0.00 103/ul Normal 0.00-0.10 [facility] Comment on above: Performed By: #### C CORI ####[facility] Vtlcehwvrm8612[address] [place], [place] [address]Dr. Anjali Reagan BASOM % 0.0 % Critically low 0.2-2.0 [facility] Comment on above: Performed By: #### C CORI ####[facility] Mddghbwsku1729 [place] [address]Dr. Anjali Reagan BLAST # Normal [facility] Comment on above: Performed By: #### C CORI ####[facility] Basxsftyjj7577 [place] [address]Dr. Anjali Reagan BLAST % Normal [facility] Comment on above: Performed By: #### C CORI ####[facility] Yefyadjfur9003[address] [place], [place] [address]Dr. Anjali Reagan CORRECTED WBC Normal 4.0-11.0 [facility] Comment on above: Performed By: #### C CORI ####[facility] Usfxbreksu961732 [address] [place], [place] [address]Dr. Anjali Reagan EOS # 0.28 103/ul Normal 0.00-0.70 [facility] Comment on above: Performed By: #### C CORI ####[facility] Rbazjizrnc3455 [place] [phone]. Anjali Reagan EOS% 4.0 % Normal 0.9-7.0 [facility] Comment on above: Performed By: #### C CORI ####[facility] Lxfqktuvhk9966 [place] [phone]. Anjali Reagan HCT 28.5 % Critically low 42.0-54.0 [facility] Comment on above: Performed By: #### C CORI ####[facility] Kalvqnjuom7306 [place] [address]Dr. Anjali Reagan HGB 8.6 g/dl Critically low 14.0-18.0 [facility] Comment on above: Performed By: #### C CORI ####[facility] Veggajrzzl27[address] [place], [place] [address]Dr. Anjali Reagan HYPOCHROMASIA 3+ Normal [facility] Comment on above: Performed By: #### C CORI ####[facility] Scmajdeswa904632 [address] [place], [place] [address]Dr. Anjali Reagan LYMPHM # 0.57 103/ul Critically low 1.20-3.80 [facility] Comment on above: Performed By: #### C CORI ####[facility] Znukmisfuu1063[address] [place], [place] [address]Dr. Anjali Reagan LYMPHM% 8.0 % Critically low 20.5-60.0 [facility] Comment on above: Performed By: #### C CORI ####[facility] Wlhpvixxqu770[address] [place], [place] [address]Dr. Anjali Reagan MCH 25.4 pg Critically low 25.9-34.0 [facility] Comment on above: Performed By: #### C CORI ####[facility] Ulfxgfdoaz9518 [place] [phone]. Anjali Reagan MCHC 30.2 g/dl Normal 29.9-35.2 [facility] Comment on above: Performed By: #### C CORI ####[facility] Llfbpeqieg6533 [place] [address]Dr. Anjali Reagan MCV 84.1 fL Normal 80.0-94.0 [facility] Comment on above: Performed By: #### C CORI ####[facility] Bjqlrskkyd0965 [place] [phone]. Anjali Reagan METAMYELOCYTE # Normal [facility] Comment on above: Performed By: #### C CORI ####[facility] Jxhobnreqv9826[address] [place], [place] [address]Dr. Anjali Reagan METAMYELOCYTE % Normal [facility] Comment on above: Performed By: #### C CORI ####[facility] Hsypehpizh225[address] [place], [place] [address]Dr. Anjali Reagan MICROCYTOSIS 2+ Normal [facility] Comment on above: Performed By: #### C CORI ####[facility] Kzedtnygao5946[address] [place], [place] [address]Dr. Anjali Reagan MONOM# 0.14 103/ul Critically low 0.30-0.80 [facility] Comment on above: Performed By: #### C CORI ####[facility] Tdxqeitjal6204[address] [place], [place] [address]Dr. Anjali Reagan MONOM% 2.0 % Normal 1.7-12.0 [facility] Comment on above: Performed By: #### C CORI ####[facility] Kfhsrnvzbt9019[address] [place], [place] [address]Dr. Anjali Reagan MPV 9.3 fL Critically low 9.5-13.5 [facility] Comment on above: Performed By: #### C CORI ####[facility] Irkytfoxnx4455[address] [place], [place] [address]Dr. Anjali Reagan MYELOCYTE # Normal [facility] Comment on above: Performed By: #### C CORI ####[facility] Dggiauqknj549[address] [place], [place] [address]Dr. Yilan Reagan MYELOCYTE % Normal [facility] Comment on above: Performed By: #### C CORI ####[facility] Lyvmonjqsr6282 [place] [phone]. Anjali Reagan NRBC 1 Normal [facility] Comment on above: Performed By: #### C CORI ####[facility] Pyckfwayzs1320 [place], [place] [address]Qn. Anjali Reagan PLT 186 103/ul Normal 150-450 [facility] Comment on above: Performed By: #### C CORI ####[facility] Xmqzyxneii6132 [place], [place] [address]Yq. Anjali Reagan RBC 3.39 106/ul Critically low 4.70-6.10 [facility] Comment on above: Performed By: #### C CORI ####[facility] Rwfevmvwaw8453 [place] [phone]. Anjali Reagan RDW 18.8 % Critically high 11.0-15.0 [facility] Comment on above: Performed By: #### C CORI ####[facility] Svjdikrxdc9048 [place] [phone]. Anjali Reagan SEG # 5.82 103/ul Normal 1.40-6.50 [facility] Comment on above: Performed By: #### C CORI ####[facility] Ihdvdaydrn2491 [place] [phone]. Anjali Reagan SEG % 82.0 % Critically high 43.0-75.0 [facility] Comment on above: Performed By: #### C CORI ####[facility] Gdutxdieer8350 [place] [phone]. Anjali Reagan WBC 7.1 103/ul Normal 4.0-11.0 [facility] Comment on above: Performed By: #### C CORI ####[facility] Wxsotnwhqm5951 [place] [phone]. Anjali Reagan POINT OF CARE GLUCOSEon 11- Glucose [Mass/Vol] 175 mg/dL Critically high 74-106 T [facility] Comment on above: Performed By: #### P OCGLUC ####[facility] Nntxzntjnf3293 [place] [address]Dr. Anjali Reagan PROF 14(COMP METB)on 021 Albumin [Mass/Vol] 2.4 g/dL Critically low 3.5-5.0 [facility] Comment on above: Performed By: #### C MP ####[facility] Czxlzfspdn6658 [place] [address]Dr. Anjali Reagan Albumin/Globulin [Mass ratio] 0.6 {ratio} Normal [facility] Comment on above: Performed By: #### C MP ####[facility] Aujkpgtctx8669[address] [place], [place] [address]Dr. Anjali Reagan ALP [Catalytic activity/Vol] 93 U/L Normal 38-126 [facility] Comment on above: Performed By: #### C MP ####[facility] Ytdpyldewr3079[address] [place], [place] [address]Dr. Anjali Reagan ALT [Catalytic activity/Vol] 18 U/L Critically low 21-72 [facility] Comment on above: Performed By: #### C MP ####[facility] Dndnwiaeba419932 [address] [place], [place] [address]Dr. Anjali Reagan Anion gap [Moles/Vol] 12.5 mmol/L Normal [facility] Comment on above: Performed By: #### C MP ####[facility] Yjdsuuczle8180[address] [place], [place] [address]Dr. Anjali Reagan AST [Catalytic activity/Vol] 30 U/L Normal 17-59 [facility] Comment on above: Performed By: #### C MP ####[facility] Ytvwtvetpb8553[address] [place], [place] [address]Dr. Anjali Reagan Bilirubin [Mass/Vol] 0.5 mg/dL Normal 0.2-1.3 [facility] Comment on above: Performed By: #### C MP ####[facility] Inmqzkytrl567132 [address] [place], [place] [address]Dr. Anjali Reagan Calcium [Mass/Vol] 8.5 mg/dL Normal 8.4-10.2 [facility] Comment on above: Performed By: #### C MP ####[facility] Nhphlgdghq3575 [place] [address]Dr. Anjali Reagan Chloride [Moles/Vol] 103 mmol/L Normal 98-107 [facility] Comment on above: Performed By: #### C MP ####[facility] Ccekqbdvrh2490 [place] [phone]. Anjali Reagan CO2 [Moles/Vol] 25.8 mmol/L Normal 22.0-30.0 [facility] Comment on above: Performed By: #### C MP ####[facility] Aeakveopwp2738 [place] [address]Dr. Anjali Reagan Creatinine [Mass/Vol] 1.09 mg/dL Normal 0.66-1.25 [facility] Comment on above: Performed By: #### C MP ####[facility] Urbtqoofwc1914[address] [place], [place] [address]Dr. Anjali Reagan EGFR-AF RWANDAN >60 Normal >=60 [facility] Comment on above: Performed By: #### C MP ####[facility] Rainmuyckf9282 [place] [address]Dr. Anjali Reagan EGFR-NON AF RWANDAN >60 Normal >=60 [facility] Comment on above: Performed By: #### C MP ####[facility] Depuyylryv136132 [address] [place], [place] [address]Dr. Anjali Reagan Globulin (S) [Mass/Vol] 3.7 g/dL Normal [facility] Comment on above: Performed By: #### C MP ####[facility] Fiyunyireq1140 [place] [address]Dr. Anjali Reagan Glucose [Mass/Vol] 165 mg/dL Critically high 74-106 [facility] Comment on above: Performed By: #### C MP ####[facility] Ukjfiagvlh034132 [address] [place], [place] [address]Dr. Anjali Reagan Potassium [Moles/Vol] 4.3 mmol/L Normal 3.4-5.0 [facility] Comment on above: Performed By: #### C MP ####[facility] Xwijnlcwln5961 [place] [address]Dr. Anjali Reagan Protein [Mass/Vol] 6.1 g/dL Normal 6.1-8.2 [facility] Comment on above: Performed By: #### C MP ####[facility] Otjhpvujeq4771 [place] [address]Dr. Anjali Reagan Sodium [Moles/Vol] 137 mmol/L Normal 137-145 [facility] Comment on above: Performed By: #### C MP ####[facility] Pvvetpxwve8315[address] [place], [place] [address]Dr. Anjali Tez Urea nitrogen [Mass/Vol] 24.0 mg/dL Critically high 9.0-20 .0 [facility] Comment on above: Performed By: #### C MP ####[facility] Klxuyfsevm4613[address] [place], [place] [address]Dr. Anjali Reagan Urea nitrogen/Creatinine [Mass ratio] 22.0 mg/mg Normal [facility] Comment on above: Performed By: #### C MP ####[facility] Ugbspnsmqk573632 [address] [place], [place] [address]Dr. Anjali Tez ALBUMINon 02-11-2021 Albumin [Mass/Vol] 2.8 g/dL Critically low 3.5-5.0 [facility] Comment on above: Performed By: #### P REALB, ALB ####[facility] Gphpgobnjl5249[address] [place], [place] [address]Dr. Anjali Tez CBC AUTO DIFFon 02-11-2021 BASO # 0.0 103/ul Normal 0.0-0.1 [facility] Comment on above: Performed By: #### C BC ####[facility] Cbjymziwzt5087[address] [place], [place] [address]Dr. Biancaramona Reagan Basophils/100 WBC (Bld) 0.5 % Normal 0.2-2.0 [facility] Comment on above: Performed By: #### C BC ####[facility] Dnzjnqoxwu256832 [address] [place], [place] [address]Dr. Anjali Reagan EO # 0.5 103/ul Normal 0.0-0.7 [facility] Comment on above: Performed By: #### C BC ####[facility] Xkvndorlte2325 [place] [phone]. Anjali Reagan Eosinophils/100 WBC (Bld) 7.4 % Critically high 0.9-7.0 [facility] Comment on above: Performed By: #### C BC ####[facility] Jvpxyzoblz9140 [place] [phone]. Anjali Reagan Erythrocyte distribution width (RBC) [Ratio] 18.7 % Critically high 11.0-15.0 [facility] Comment on above: Performed By: #### C BC ####[facility] Euzcxkeroo8345 [place] [address]Dr. Anjali Reagan Hematocrit (Bld) [Volume fraction] 30.7 % Critically low 42.0-54.0 [facility] Comment on above: Performed By: #### C BC ####[facility] Xxfnkhyqic9398[address] [place], [place] [address]Dr. Anjali Reagan Hemoglobin (Bld) [Mass/Vol] 9.5 g/dL Critically low 14.0-18.0 [facility] Comment on above: Performed By: #### C BC ####[facility] Pnoqnpehze3016[address] [place], [place] [address]Dr. Anjali Reagan IG # 0.05 10e3/ul Critically high 0.00-0.03 [facility] Comment on above: Performed By: #### C BC ####[facility] Vskhydwcgr067232 [address] [place], [place] [address]Dr. Anjali Reagan IG % 0.8 % Critically high 0.0-0.5 [facility] Comment on above: Performed By: #### C BC ####[facility] Etfvqfeyzn5612[address] [place], [place] [address]Dr. Anjali Reagan LYMPH # 0.6 103/ul Critically low 1.2-3.8 [facility] Comment on above: Performed By: #### C BC ####[facility] Jizltidksk23[address] [place], [place] [address]Dr. Anjali Reagan Lymphocytes/100 WBC (Bld) 8.5 % Critically low 20.5-60.0 [facility] Comment on above: Performed By: #### C BC ####[facility] Ffmjleigca5348 [place] [address]DrVeronica Reagan MANUAL DIFF REQ NO Normal [facility] Comment on above: Performed By: #### C BC ####[facility] Kwpxqcaxzr6508 [place] [phone]. Anjali Reagan MCH (RBC) [Entitic mass] 25.3 pg Critically low 25.9-34 .0 [facility] Comment on above: Performed By: #### C BC ####[facility] Nhfcqhcibr8018 [place] [address]Dr. Anjali Reagan MCHC (RBC) [Mass/Vol] 30.9 g/dL Normal 29.9-35.2 [facility] Comment on above: Performed By: #### C BC ####[facility] Ldwlhjhqsw8783[address] [place], [place] [address]Dr. Anjali Reagan MCV (RBC) [Entitic vol] 81.6 fL Normal 80.0-94.0 [facility] Comment on above: Performed By: #### C BC ####[facility] Xbytefzdbj087132 [address] [place], [place] [address]DrVeronica Reagan MONO # 0.8 103/ul Normal 0.3-0.8 [facility] Comment on above: Performed By: #### C BC ####[facility] Eyahfgtphe312832 [address] [place], [place] [address]DrVeronica Reagan Monocytes/100 WBC (Bld) 12.2 % Critically high 1.7-12. 0 [facility] Comment on above: Performed By: #### C BC ####[facility] Btxldqsesl8630[address] [place], [place] [address]DrVeronica Reagan NEUT # 4.6 103/ul Normal 1.4-6.5 [facility] Comment on above: Performed By: #### C BC ####[facility] Bykuvxjgoe5711[address] [place], [place] [address]DrVeronica Reagan Neutrophils/100 WBC (Bld) 70.6 % Normal 43.0-75.0 [facility] Comment on above: Performed By: #### C BC ####[facility] Mwvjbxlnyb3068 [place] [address]Dr. Anjali Reagan Platelet mean volume (Bld) [Entitic vol] 9.6 fL Normal 9.5-13.5 [facility] Comment on above: Performed By: #### C BC ####[facility] Tfvreoomzd2346 [place] [phone]. Anjali Tez PLT 205 103/ul Normal 150-450 [facility] Comment on above: Performed By: #### C BC ####[facility] Cinlcvtykj4644 [place] [phone]. Biancaramona Tez RBC 3.76 106/ul Critically low 4.70-6.10 [facility] Comment on above: Performed By: #### C BC ####[facility] Oprbqvqrov3501 [place] [address]Dr. Anjali Reagan WBC 6.5 103/ul Normal 4.0-11.0 [facility] Comment on above: Performed By: #### C BC ####[facility] Twjixxuwfn447[address] [place], [place] [address]Dr. Anjali Tez CULTURE ANAEROBICon 02-12-20 21 CULTURE ANAEROBIC Specimen Comments: RIGHT ANKLE JOINT Culture Observations: NO GROWTH AT 72 HRS Normal [facility] Comment on above: Performed By: #### A NACX ####[facility] Xffubchynk2342[address] [place], [place] [address]Dr. Biancaramona Tez CULTURE OTHERon 02-11-2021 CULTURE OTHER Specimen Comments: RIGHT ANKLE JOINT Culture Observations: NO GROWTH AT 72 HRS Normal [facility] Comment on above: Performed By: #### O THCX ####[facility] Oudfalqmpb7180[address] [place], [place] [address]Dr. Anjali Tez GRAM STAINon 02-11-2021 COMMENTS NO ORGANISMS OBSERVED Normal [facility] Comment on above: Performed By: #### G STAIN ####[facility] Oqommhdvwa9926[address] [place], [place] [address]Dr. Anjali Reagan DIPHTHEROIDS Normal [facility] Comment on above: Performed By: #### G STAIN ####[facility] Glbpzahiec3658 [place] [address]Dr. Anjali Reagan EPITHELIALS Normal [facility] Comment on above: Performed By: #### G STAIN ####[facility] Bphrfqaluc0432 [place] [address]Dr. Anjali Reagan FUNGAL ELEMENTS Normal [facility] Comment on above: Performed By: #### G STAIN ####[facility] Uewoftgnjp2504 [place] [address]Dr. Anjali Reagan GRAM NEG BACILLI Normal [facility] Comment on above: Performed By: #### G STAIN ####[facility] Mephbedtvz9112[address] [place], [place] [address]Dr. Anjali Reagan GRAM NEG DIPPLOCOCCI Normal [facility] Comment on above: Performed By: #### G STAIN ####[facility] Lsleopvcfb2315[address] [place], [place] [address]Dr. Anjali Reagan GRAM POS BACILLI Normal [facility] Comment on above: Performed By: #### G STAIN ####[facility] Ozfatnlkhi7424[address] [place], [place] [address]Dr. Anjali Reagan GRAM POSITIVE COCCI Normal [facility] Comment on above: Performed By: #### G STAIN ####[facility] Hmcqadjkpd55[address] [place], [place] [address]Dr. Anjali Reagan GRAM STAIN SOURCE Right ankle joint Normal [facility] Comment on above: Performed By: #### G STAIN ####[facility] Dbjrmipwaw9818 [place] [address]Dr. Anjali Reagan GS_DIPTH Normal [facility] Comment on above: Performed By: #### G STAIN ####[facility] Bsdqibuotx242[address] [place], [place] [address]Dr. Anjali Reagan WBC FEW Normal [facility] Comment on above: Performed By: #### G STAIN ####[facility] Zenhbexnnj8782[address] [place], [place] [address]Dr. Anjali Reagan POINT OF CARE GLUCOSEon 11 Glucose [Mass/Vol] 196 mg/dL Critically high 74-106 [facility] [facility] Comment on above: Performed By: #### P OCGLUC ####[facility] Vmsmssaxqw[address] [place], [place] [address]Dr. Anjali Reagan Glucose [Mass/Vol] 176 mg/dL Critically high 74-106 [facility] Comment on above: Performed By: #### P OCGLUC ####[facility] Rbglaarzeq[address] [place], [place] [address]Dr. Anjali Reagan PREALBUMINon 02-11-2021 Prealbumin [Mass/Vol] 17.8 mg/dL Normal 17.6-36.0 [facility] Comment on above: Performed By: #### P REALB, ALB ####[facility] Cazlrpeonj6[address] [place], [place] [address]Dr. Anjali Reagan PROF 14(COMP METB)on 021 Albumin [Mass/Vol] 2.6 g/dL Critically low 3.5-5.0 [facility] Comment on above: Performed By: #### B MP, CMP ####[facility] Iymrbcgggi3536[address] [place], [place] [address]Dr. Anjali Reagan Albumin/Globulin [Mass ratio] 0.6 {ratio} Normal [facility] Comment on above: Performed By: #### B MP, CMP ####[facility] Oyjyqweako6[address] [place], [place] [address]Dr. Anjali Reagan ALP [Catalytic activity/Vol] 104 U/L Normal 38-126 [facility] Comment on above: Performed By: #### B MP, CMP ####[facility] Fkmpgzhocp56[address] [place], [place] [address]Dr. Anjali Reagan ALT [Catalytic activity/Vol] 17 U/L Critically low 21-72 [facility] Comment on above: Performed By: #### B MP, CMP ####[facility] Iqvydbdrzj73[address] [place], [place] [address]Dr. Anjali Reagan AST [Catalytic activity/Vol] 26 U/L Normal 17-59 [facility] Comment on above: Performed By: #### B MP, CMP ####[facility] Ongvbnxxrp8[address] [place] [address]Dr. Anjali Reagan Bilirubin [Mass/Vol] 0.5 mg/dL Normal 0.2-1.3 [facility] Comment on above: Performed By: #### B MP, CMP ####[facility] Qkqidovnca[address] [place], [place] [address]Dr. Anjali Reagan Globulin (S) [Mass/Vol] 4.1 g/dL Normal T [facility] Comment on above: Performed By: #### B MP, CMP ####[facility] Auvfsqugcm245[address] [place], [place] [address]Dr. Anjali Reagan Protein [Mass/Vol] 6.7 g/dL Normal 6.1-8.2 [facility] Comment on above: Performed By: #### B MP, CMP ####[facility] Kqcaqnrovn8[address] [place], [place] [address]Dr. Anjali Reagan PROF CHEM 8 (BAS METB)on Anion gap [Moles/Vol] 11.3 mmol/L Normal [facility] Comment on above: Performed By: #### B MP, CMP ####[facility] Stuzdbhytb[address] [place], [place] [address]Dr. Anjali Reagan Calcium [Mass/Vol] 9.0 mg/dL Normal 8.4-10.2 [facility] Comment on above: Performed By: #### B MP, CMP ####[facility] Waavoeihsq5363[address] [place], [place] [address]Dr. Anjali Reagan Chloride [Moles/Vol] 101 mmol/L Normal 98-107 [facility] Comment on above: Performed By: #### B MP, CMP ####[facility] Izdbexxidg8278[address] [place], [place] [address]Dr. Anjali Reagan CO2 [Moles/Vol] 28.0 mmol/L Normal 22.0-30.0 [facility] Comment on above: Performed By: #### B MP, CMP ####[facility] Wbaqxtnfyo7[address] [place], [place] [address]Dr. Anjali Reagan Creatinine [Mass/Vol] 1.23 mg/dL Normal 0.66-1.25 [facility] Comment on above: Performed By: #### B MP, CMP ####[facility] [address]iqigkwyv[address] [place] [address]Dr. Biancaramona Tez EGFR-AF RWANDAN >60 Normal >=60 [facility] Comment on above: Performed By: #### B MP, CMP ####[facility] Jtzbdxdqrr4099 [place] [id number]. Biancaramona Tez EGFR-NON AF RWANDAN 59 mL/min/1.73m2 Critically low >=60 [facility] Comment on above: Performed By: #### B MP, CMP ####[facility] Vxdeaurbgm1589[address] [place], [place] [address]Dr. Anjali Reagan Glucose [Mass/Vol] 109 mg/dL Critically high 74-106 T [facility] Comment on above: Performed By: #### B MP, CMP ####[facility] Mkqqqivsbk9583[address] [place], [place] [address]Dr. Anjali Reagan Potassium [Moles/Vol] 3.9 mmol/L Normal 3.4-5.0 [facility] Comment on above: Performed By: #### B ALEA, CMP ####[facility] Yrejfpibdj2856[address] [place], [place] [address]Dr. Anjali Reagan Sodium [Moles/Vol] 136 mmol/L Critically low 137-145 [facility] Comment on above: Performed By: #### B MP, CMP ####[facility] Ohnyuwhcjt5[address] [place], [place] [address]Dr. Anjali Reagan Urea nitrogen [Mass/Vol] 32.0 mg/dL Critically high 9.0-20 .0 [facility] Comment on above: Performed By: #### B MP, CMP ####[facility] Ullpksoywt3224[address] [place], [place] [address]Dr. Anjali Reagan Urea nitrogen/Creatinine [Mass ratio] 26.0 mg/mg Normal [facility] Comment on above: Performed By: #### B MP, CMP ####[facility] Sigdxmslsv4923[address] [place], [place] [address]Dr. Anjali Reagan VANCOMYCIN TROUGHon 11-12-20 21 VANCOMYCIN TROUGH 9.8 ug/ml Normal 5.0-20.0 [facility] Comment on above: Performed By: #### V ANCT ####[facility] Hoqmihlnwr2186[address] [place], [place] [address]Dr. Anjali Reagan XR ANKLE RT 2Von 02-11-2021 XR ANKLE RT 2V Normal [facility] XR FOOT RT MIN 3 VIEWSon XR FOOT RT MIN 3 VIEWS Normal [facility] CBC AUTO DIFFon 02-10-2021 BASO # 0.0 103/ul Normal 0.0-0.1 [facility] Comment on above: Performed By: #### C BC ####[facility] Ylpmerutor8101[address] [place], [place] [address]DrVeronica Reagan Basophils/100 WBC (Bld) 0.3 % Normal 0.2-2.0 [facility] Comment on above: Performed By: #### C BC ####[facility] Tfblpkjaiw8373[address] [place], [place] [address]Dr. Anjali Raegan EO # 0.2 103/ul Normal 0.0-0.7 [facility] Comment on above: Performed By: #### C BC ####[facility] Hjbqrynjcb1989[address] [place], [place] [address]DrVeronica Reagan Eosinophils/100 WBC (Bld) 2.7 % Normal 0.9-7.0 [facility] Comment on above: Performed By: #### C BC ####[facility] Qdkebhwtrv[address] [place] [phone] Reagan Erythrocyte distribution width (RBC) [Ratio] 18.8 % Critically high 11.0-15.0 [facility] Comment on above: Performed By: #### C BC ####[facility] Bhhcpeqfvo8399[address] [place], [place] [address]DrVeronica Reagan Hematocrit (Bld) [Volume fraction] 31.6 % Critically low 42.0-54.0 [facility] Comment on above: Performed By: #### C BC ####[facility] Lmnisnilwg9528[address] [place], [place] [address]Dr. Anjali Reagan Hemoglobin (Bld) [Mass/Vol] 9.6 g/dL Critically low 14.0-18.0 [facility] Comment on above: Performed By: #### C BC ####[facility] Wbafuffqwb2603 [place] [address]DrVeronica Reagan IG # 0.04 10e3/ul Critically high 0.00-0.03 [facility] Comment on above: Performed By: #### C BC ####[facility] Cmmjugifqw7216 [place] [address]DrVeronica Reagan IG % 0.6 % Critically high 0.0-0.5 [facility] Comment on above: Performed By: #### C BC ####[facility] Jvjznjgghk7289[address] [place], [place] [address]DrVeronica Reagan LYMPH # 0.9 103/ul Critically low 1.2-3.8 [facility] Comment on above: Performed By: #### C BC ####[facility] Onoxujmujr2588[address] [place], [place] [address]DrVeronica Reagan Lymphocytes/100 WBC (Bld) 12.2 % Critically low 20.5-60.0 [facility] Comment on above: Performed By: #### C BC ####[facility] Pjhhyebtri7464[address] [place], [place] [address]DrVeronica Reagan MANUAL DIFF REQ NO Normal [facility] Comment on above: Performed By: #### C BC ####[facility] Pkhluzsjfp7208[address] [place], [place] [address]DrVeronica Reagan MCH (RBC) [Entitic mass] 24.7 pg Critically low 25.9-34 .0 [facility] Comment on above: Performed By: #### C BC ####[facility] Rmtncwfnql7712[address] [place], [place] [address]DrVeronica Reagan MCHC (RBC) [Mass/Vol] 30.4 g/dL Normal 29.9-35.2 [facility] Comment on above: Performed By: #### C BC ####[facility] Ghpmtxmkmr1990[address] [place], [place] [address]Dr. Anjali Tez MCV (RBC) [Entitic vol] 81.4 fL Normal 80.0-94.0 [facility] Comment on above: Performed By: #### C BC ####[facility] Exaelqyknu75[address] [place] [address]Dr. Anjali Reagan MONO # 0.7 103/ul Normal 0.3-0.8 [facility] Comment on above: Performed By: #### C BC ####[facility] Djqoqndhvh2079 [place] [address]Dr. Biancaramona Reagan Monocytes/100 WBC (Bld) 9.9 % Normal 1.7-12.0 [facility] Comment on above: Performed By: #### C BC ####[facility] Vkhggdtszx[address] [place], [place] [address]Dr. Biancaramona Tez NEUT # 5.3 103/ul Normal 1.4-6.5 [facility] Comment on above: Performed By: #### C BC ####[facility] Dfpkyevtld9063[address] [place], [place] [address]Dr. Biancaramona Reagan Neutrophils/100 WBC (Bld) 74.3 % Normal 43.0-75.0 [facility] Comment on above: Performed By: #### C BC ####[facility] Yxmspinust0142[address] [place], [place] [address]Dr. Anjali Tez Platelet mean volume (Bld) [Entitic vol] 9.6 fL Normal 9.5-13.5 [facility] Comment on above: Performed By: #### C BC ####[facility] Ejixrwuyra86[address] [place] [address]Dr. Biancaramona Tez PLT 218 103/ul Normal 150-450 [facility] Comment on above: Performed By: #### C BC ####[facility] Irmindxzjv1946 [place] [phone]. Biancaramona Tez RBC 3.88 106/ul Critically low 4.70-6.10 [facility] Comment on above: Performed By: #### C BC ####[facility] Slyfifeyvq4617[address] [place], [place] [address]Dr. Anjali Reagan WBC 7.1 103/ul Normal 4.0-11.0 [facility] Comment on above: Performed By: #### C BC ####[facility] Fhktgmljue2419 [place] [address]Dr. Anjali Reagan POINT OF CARE GLUCOSEon 01-31 Glucose [Mass/Vol] 219 mg/dL Critically high 74-106 [facility] Comment on above: Performed By: #### P OCGLUC ####[facility] Bhrhybemez23[address] [place] [address]Dr. Anjali Reagan Glucose [Mass/Vol] 136 mg/dL Critically high 74-106 [facility] Comment on above: Performed By: #### P OCGLUC ####[facility] Tafhefylxb4896 [place] [address]Dr. Anjali Reagan Glucose [Mass/Vol] 119 mg/dL Critically high 74-106 [facility] Comment on above: Performed By: #### P OCGLUC ####[facility] Shkikdbbjh8653 [place] [address]Dr. Anjali Reagan PROF 14(COMP METB)on 021 Albumin [Mass/Vol] 2.8 g/dL Critically low 3.5-5.0 [facility] Comment on above: Performed By: #### C MP, BMP ####[facility] Ezlehaxirv7676 [place] [address]Dr. Anjali Reagan Albumin/Globulin [Mass ratio] 0.7 {ratio} Normal [facility] Comment on above: Performed By: #### C MP, BMP ####[facility] Vstlqqhqrk6236 [place] [address]Dr. Biancaramona Reagan ALP [Catalytic activity/Vol] 109 U/L Normal 38-126 [facility] Comment on above: Performed By: #### C MP, BMP ####[facility] Khdjmnmefa1659 [place] [address]Dr. Anjali Reagan ALT [Catalytic activity/Vol] 23 U/L Normal 21-72 [facility] Comment on above: Performed By: #### C MP, BMP ####[facility] Ukywzxobrr4533 [place] [address]Dr. Anjali Reagan AST [Catalytic activity/Vol] 24 U/L Normal 17-59 [facility] Comment on above: Performed By: #### C MP, BMP ####[facility] Cpphzujpvv2786 [place] [address]Dr. Anjali Reagan Bilirubin [Mass/Vol] 0.4 mg/dL Normal 0.2-1.3 [facility] Comment on above: Performed By: #### C MP, BMP ####[facility] Afqrubepal5[address] [place], [place] [address]Dr. Anjali Reagan Globulin (S) [Mass/Vol] 4.1 g/dL Normal T [facility] Comment on above: Performed By: #### C MP, BMP ####[facility] Aqelclkcmd6[address] [place], [place] [address]Dr. Anjali Reagan Protein [Mass/Vol] 6.9 g/dL Normal 6.1-8.2 [facility] Comment on above: Performed By: #### C MP, BMP ####[facility] Fokxxzhsrs7826[address] [place], [place] [address]Dr. Anjali Reagan PROF CHEM 8 (BAS METB)on Anion gap [Moles/Vol] 13.0 mmol/L Normal [facility] Comment on above: Performed By: #### C MP, BMP ####[facility] Kyhvcdeqzj85[address] [place], [place] [address]Dr. Anjali Reagan Calcium [Mass/Vol] 9.4 mg/dL Normal 8.4-10.2 [facility] Comment on above: Performed By: #### C MP, BMP ####[facility] Mxefmpoodc9360[address] [place], [place] [address]Dr. Anjali Reagan Chloride [Moles/Vol] 104 mmol/L Normal 98-107 [facility] Comment on above: Performed By: #### C MP, BMP ####[facility] Khlwabgkfw79[address] [place], [place] [address]Dr. Anjali Reagan CO2 [Moles/Vol] 27.7 mmol/L Normal 22.0-30.0 [facility] Comment on above: Performed By: #### C MP, BMP ####[facility] Mryoylstxb2200 [place] [phone]. Anjali Reagan Creatinine [Mass/Vol] 1.19 mg/dL Normal 0.66-1.25 [facility] Comment on above: Performed By: #### C MP, BMP ####[facility] Anbovdecda5283 [place] [phone]. Anjali Reagan EGFR-AF RWANDAN >60 Normal >=60 [facility] Comment on above: Performed By: #### C MP, BMP ####[facility] Yviojgqdpo2879 [place] [phone]. Anjali Reagan EGFR-NON AF RWANDAN >60 Normal >=60 [facility] Comment on above: Performed By: #### C MP, BMP ####[facility] Ixobzuuped1158 [place] [phone]. Anjali Reagan Glucose [Mass/Vol] 81 mg/dL Normal 74-106 [facility] Comment on above: Performed By: #### C MP, BMP ####[facility] Ggxtiutmyx2205 [place] [phone]. Anjali Reagan Potassium [Moles/Vol] 4.1 mmol/L Normal 3.4-5.0 [facility] Comment on above: Performed By: #### C MP, BMP ####[facility] Xjtzsmyabm8003 [place] [phone]. Anjali Reagan Sodium [Moles/Vol] 141 mmol/L Normal 137-145 [facility] Comment on above: Performed By: #### C MP, BMP ####[facility] Usjwcdmkwh1506 [place] [phone]. Anjali Reagan Urea nitrogen [Mass/Vol] 41.0 mg/dL Critically high 9.0-20 .0 [facility] Comment on above: Performed By: #### C MP, BMP ####[facility] Mqnbxvrrfa6805 [place] [phone]. Anjali Reagan Urea nitrogen/Creatinine [Mass ratio] 34.4 mg/mg Normal [facility] Comment on above: Performed By: #### C MP, BMP ####[facility] Nrxeqffmsq364[address] [place], [place] [address]Dr. Anjali Reagan CBC W MANUAL DIFFon 02-10-20 21 ANISOCYTOSIS SLIGHT Normal [facility] Comment on above: Performed By: #### C BCMAN ####[facility] Sohflmzlcx74[address] [place], [place] [address]Dr. Anjali Reagan ATYPICAL LYMPH # Normal [facility] Comment on above: Performed By: #### C BCMAN ####[facility] Xaeiccuunj6764[address] [place], [place] [address]Dr. Anjali Reagan ATYPICAL LYMPH % Normal [facility] Comment on above: Performed By: #### C SAUMYAMAN ####[facility] Spnuxgyefx8533[address] [place], [place] [address]Dr. Anjali Reagan BAND # Normal 0.0-0.3 [facility] Comment on above: Performed By: #### C SAUMAYMAN ####[facility] Womwhjjcut0[address] [place], [place] [address]Dr. Anjali Reagan BAND % Normal 0-5 [facility] Comment on above: Performed By: #### C SAUMYAMAN ####[facility] Aaqarfqvii9913[address] [place], [place] [address]Dr. Anjali Reagan BASOM # 0.00 103/ul Normal 0.00-0.10 [facility] Comment on above: Performed By: #### C CORI ####[facility] Aergvscavm[address] [place], [place] [address]Dr. Anjali Reagan BASOM % 0.0 % Critically low 0.2-2.0 [facility] Comment on above: Performed By: #### C BCMAN ####[facility] Enlbdofwvl7453[address] [place], [place] [address]Dr. Anjali Reagan BLAST # Normal [facility] Comment on above: Performed By: #### C CORI ####[facility] Fwuyovoanf9[address] [place], [place] [address]Dr. Anjali Reagan BLAST % Normal [facility] Comment on above: Performed By: #### C CORI ####[facility] Qrehljolxl0048 [place], [place] [address]Ud. Anjali Reagan CORRECTED WBC Normal 4.0-11.0 [facility] Comment on above: Performed By: #### C CORI ####[facility] Qzncnhpaeo1017 [place], [place] [address]Hm. Anjali Reagan EOS # 0.00 103/ul Normal 0.00-0.70 [facility] Comment on above: Performed By: #### C CORI ####[facility] Aallkjguoe6831 [place], [place] [address]Dg. Anjali Reagan EOS% 0.0 % Critically low 0.9-7.0 [facility] Comment on above: Performed By: #### C CORI ####[facility] Eicigqnccm6037 [place], [place] [address]Wp. Anjali Reagan HCT 31.1 % Critically low 42.0-54.0 [facility] Comment on above: Performed By: #### C CORI ####[facility] Dqhynfmsyf3204 [place], [place] [address]Hl. Anjali Reagan HGB 9.6 g/dl Critically low 14.0-18.0 [facility] Comment on above: Performed By: #### C CORI ####[facility] Rddhqudcia1446 [place], [place] [address]Eq. Anjali Reagan LYMPHM # 0.73 103/ul Critically low 1.20-3.80 [facility] Comment on above: Performed By: #### C CORI ####[facility] Qpfprrmkbb5894 [place], [place] [address]Zm. Anjali Reagan LYMPHM% 7.0 % Critically low 20.5-60.0 [facility] Comment on above: Performed By: #### C CORI ####[facility] Neutdrjztx4728 [place], [place] [address]Wo. Anjali Reagan MCH 25.1 pg Critically low 25.9-34.0 [facility] Comment on above: Performed By: #### C CORI ####[facility] Gfdmhfisje5722 [place] [phone]. Anjali Reagan MCHC 30.9 g/dl Normal 29.9-35.2 [facility] Comment on above: Performed By: #### C CORI ####[facility] Hdbrggfcxq2046 [place] [phone]. Anjali Reagan MCV 81.4 fL Normal 80.0-94.0 [facility] Comment on above: Performed By: #### C CORI ####[facility] Haymwavcac2901 [place] [phone]. Anjali Reagan METAMYELOCYTE # Normal [facility] Comment on above: Performed By: #### C CORI ####[facility] Gxozsnrlrv1615 [place] [phone]. Anjali Reagan METAMYELOCYTE % Normal [facility] Comment on above: Performed By: #### C CORI ####[facility] Gsozvvwlip6933 [place] [phone]. Anjali Reagan MONOM# 0.31 103/ul Normal 0.30-0.80 [facility] Comment on above: Performed By: #### Uzair PERSAUD ####[facility] Uonpfocifg7920 [place] [phone]. Anjali Reagan MONOM% 3.0 % Normal 1.7-12.0 [facility] Comment on above: Performed By: #### Uzair PERSAUD ####[facility] Ihveanmqbg0338 [place] [phone]. Anjali Reagan MPV 9.9 fL Normal 9.5-13.5 [facility] Comment on above: Performed By: #### C CORI ####[facility] Lmaliaiuag0072 [place] [phone]. Anjali Reagan MYELOCYTE # Normal [facility] Comment on above: Performed By: #### C CORI ####[facility] Tyghczaoqz1024 [place] [phone]. Anjali Reagan MYELOCYTE % Normal [facility] Comment on above: Performed By: #### C CORI ####[facility] Kdumgwtvkf1380 [place], [place] [address]Wb. Anjali Reagan NRBC Normal [facility] Comment on above: Performed By: #### C BCFIONA ####[facility] Fdwrljrzav8460 [place], [place] [address]Wg. Anjali Reagan OVALOCYTES SLIGHT Normal [facility] Comment on above: Performed By: #### C BCFIONA ####[facility] Wppcijpoyy0499 [place], [place] [address]Vr. Anjali Reagan PLT 211 103/ul Normal 150-450 [facility] Comment on above: Performed By: #### C CORI ####[facility] Qpajweznbu0747 [place] [phone]. Anjali Reagan POIKILOCYTOSIS SLIGHT Normal [facility] Comment on above: Performed By: #### C CORI ####[facility] Njqpkirgas2463 [place] [phone]. Anjali Reagan RBC 3.82 106/ul Critically low 4.70-6.10 [facility] Comment on above: Performed By: #### C CORI ####[facility] Gowyrbbwza3699 [place] [phone]. Anjali Reagan RDW 18.4 % Critically high 11.0-15.0 [facility] Comment on above: Performed By: #### C CORI ####[facility] Azgvebvvqs5391 [place] [phone]. Anjali Reagan SEG # 9.36 103/ul Critically high 1.40-6.50 [facility] Comment on above: Performed By: #### C CORI ####[facility] Edvuizncau8534 [place] [phone]. Anjali Reagan SEG % 90.0 % Critically high 43.0-75.0 [facility] Comment on above: Performed By: #### C BCFIONA ####[facility] Bhefnhwqkp1719 [place] [phone]. Anjali Reagan WBC 10.4 103/ul Normal 4.0-11.0 [facility] Comment on above: Performed By: #### C CORI ####[facility] Jbjlzyobbj9813 [place] [address]Dr. Anjali Reagan HEP B SURFACE ANTIGEN SCREEN on 02-09-2021 HBsAg Screen Negative Normal Negative [facility] Comment on above: Performed By: #### H BSANS ####[facility] Mdqmgrxsqf0247 [place] [address]Dr. Anjali Reagan HEPATITIS C ANTIBODYon 02-09 Hep C Virus Ab <0.1 Normal 0.0-0.9 [facility] Comment on above: Result Comment: Nega tive: < 0.8 Indeterminate: 0.8 - 0.9 Positive: > 0.9 . The CDC recommends that a positive HCV antibody result be followed up with a HCV Nucleic Acid Amplification test (941154). Performed By: #### H CV ####[facility] Dzyjlupawq[address] [place], [place] [address]Dr. Biancaramona Reagan HIV 1 AND 2 WITH REFLEXon HIV Screen 4th Generation wRfx Non-Reactive Normal Non Reactive [facility] Comment on above: Performed By: #### H IV12 ####[facility] Zgvnzoxsom45[address] [place], [place] [address]Dr. Anjali Reagan POINT OF CARE GLUCOSEon 01-31 Glucose [Mass/Vol] 170 mg/dL Critically high 74-106 [facility] Comment on above: Performed By: #### P OCGLUC ####[facility] Bdknmpvngm20[address] [place], [place] [address]Dr. Anjali Reagan Glucose [Mass/Vol] 265 mg/dL Critically high 74-106 [facility] Comment on above: Performed By: #### P OCGLUC ####[facility] [address] [place], [place] [address]Dr. Anjali Reagan Glucose [Mass/Vol] 319 mg/dL Critically high 74-106 [facility] Comment on above: Performed By: #### P OCGLUC ####[facility] Ljojhfvfpi[address] [place], [place] [address]Dr. Anjali Reagan PROF 14(COMP METB)on 021 Albumin [Mass/Vol] 2.8 g/dL Critically low 3.5-5.0 [facility] Comment on above: Performed By: #### C MP ####[facility] Yirzhfncwz2413 [place] [address]Dr. Anjali Tez Albumin/Globulin [Mass ratio] 0.7 {ratio} Normal [facility] Comment on above: Performed By: #### C MP ####[facility] Nwplqyphuo1131 [place] [address]Dr. Biancaramona Reagan ALP [Catalytic activity/Vol] 117 U/L Normal 38-126 [facility] Comment on above: Performed By: #### C MP ####[facility] Gvrkxqrqah4[address] [place], [place] [address]Dr. Anjali Reagan ALT [Catalytic activity/Vol] 21 U/L Normal 21-72 [facility] Comment on above: Performed By: #### C MP ####[facility] Neurrlmpth2415 [place] [address]Dr. Anjali Reagan Anion gap [Moles/Vol] 13.0 mmol/L Normal [facility] Comment on above: Performed By: #### C MP ####[facility] Hrbyrazwgx64[address] [place], [place] [address]Dr. Anjali Reagan AST [Catalytic activity/Vol] 21 U/L Normal 17-59 [facility] Comment on above: Performed By: #### C MP ####[facility] Egcxxodhbt47[address] [place], [place] [address]Dr. Anjali Reagan Bilirubin [Mass/Vol] 0.5 mg/dL Normal 0.2-1.3 [facility] Comment on above: Performed By: #### C MP ####[facility] Tpumutwlap6703 [place] [address]Dr. Anjali Reagan Calcium [Mass/Vol] 9.3 mg/dL Normal 8.4-10.2 [facility] Comment on above: Performed By: #### C MP ####[facility] Mrpyykistl8432[address] [place], [place] [address]Dr. Anjali Reagan Chloride [Moles/Vol] 100 mmol/L Normal 98-107 [facility] Comment on above: Performed By: #### C MP ####[facility] Vmkvoqsmnw2598 [place] [phone]. Anjali Reagan CO2 [Moles/Vol] 27.5 mmol/L Normal 22.0-30.0 [facility] Comment on above: Performed By: #### C MP ####[facility] Yjjtrbufsb1955 [place] [phone]. Anjali Tez Creatinine [Mass/Vol] 1.49 mg/dL Critically high 0.66-1.25 [facility] Comment on above: Performed By: #### C MP ####[facility] Gdbwljcmmq4023 [place] [phone]. Anjali Tez EGFR-AF RWANDAN 58 mL/min/1.73m2 Critically low >=60 [facility] Comment on above: Performed By: #### C MP ####[facility] Bplexesmku8242 [place] [address]Dr. Biancaramona Tez EGFR-NON AF RWANDAN 48 mL/min/1.73m2 Critically low >=60 [facility] Comment on above: Performed By: #### C MP ####[facility] Jvldnqrwxt9187 [place] [address]Dr. Anjali Tez Globulin (S) [Mass/Vol] 4.2 g/dL Normal [facility] Comment on above: Performed By: #### C MP ####[facility] Bdpmadndgb3579 [place] [address]Dr. Anjali Reagan Glucose [Mass/Vol] 276 mg/dL Critically high 74-106 [facility] Comment on above: Performed By: #### C MP ####[facility] Dtcjjelqpk4954 [place] [phone]. Anjali Tez Potassium [Moles/Vol] 4.5 mmol/L Normal 3.4-5.0 [facility] Comment on above: Performed By: #### C MP ####[facility] Fqcpmkpkyu6086 [place] [phone]. Anjali Reagan Protein [Mass/Vol] 7.0 g/dL Normal 6.1-8.2 [facility] Comment on above: Performed By: #### C MP ####[facility] Hrzvlfvcsl1692 [place] [address]Dr. Anjali Reagan Sodium [Moles/Vol] 136 mmol/L Critically low 137-145 [facility] Comment on above: Performed By: #### C MP ####[facility] Hwkrvcmzcz7345 [place] [phone]. Biancaramona Tez Urea nitrogen [Mass/Vol] 42.0 mg/dL Critically high 9.0-20 .0 [facility] Comment on above: Performed By: #### C MP ####[facility] Qgkzirhrqf29[address] [place], [place] [address]Dr. Anjali Reagan Urea nitrogen/Creatinine [Mass ratio] 28.2 mg/mg Normal [facility] Comment on above: Performed By: #### C MP ####[facility] Cmejgqevnv4[address] [place], [place] [address]Dr. Biancaramona Tez RPR QUANTon 02-09-2021 Rapid Plasma Reagin, Quant Non-Reactive Normal NonRea<1:1 [facility] Comment on above: Performed By: #### R PRQ ####[facility] Gvxjuqrexr1484[address] [place], [place] [address]Dr. Biancaramona Tez XR ANKLE RT 2Von 02-09-2021 XR ANKLE RT 2V Normal [facility] XR TIB_FIB RT 2Von 1 XR TIB_FIB RT 2V Normal [facility] CRPon 02-08-2021 CRP 3.2 mg/dL Critically high <=1.0 [facility] Comment on above: Performed By: #### C RP ####[facility] Rpurprlrnz2594[address] [place], [place] [address]Dr. Anjali Reagan CULTURE ANAEROBICon 02-09-20 21 CULTURE ANAEROBIC Specimen Comments: RIGHT FOOT IRRIGATION SWAB Culture Observations: NO GROWTH AT 72 HRS Normal [facility] Comment on above: Performed By: #### A NACX ####[facility] Zmygazehmm26[address] [place], [place] [address]Dr. Yilan Reagan CULTURE ANAEROBIC Specimen Comments: RIGHT LEG REAMINGS Culture Observations: NO GROWTH OF ANAEROBES AT 72 HOURS. [facility] Comment on above: Performed By: #### A NACX ####[facility] Pfvlemabwv[address] [place], [place] [id number]. Yilan Reagan CULTURE ANAEROBIC Culture Observations : NO GROWTH AT 72 HRS [facility] Comment on above: Performed By: #### A NACX ####[facility] Jmtaufhety309[address] [place], [place] [id number]. Yilan Reagan CULTURE ANAEROBIC Specimen Comments: RIGHT TIBIA BONE Culture Observations: NO GROWTH AT 72 HRS [facility] Comment on above: Performed By: #### A NACX ####[facility] Pohuoalviq5296[address] [place], [place] [address]Dr. Yilan Reagan CULTURE ANAEROBIC Specimen Comments: RIGHT CALCANEOUS BONE Culture Observations: NO GROWTH OF ANAEROBES AT 72 HOURS. [facility] Comment on above: Performed By: #### A NACX ####[facility] Pshdpvvofj9644[address] [place], [place] [address]Dr. Yilan Reagan CULTURE ANAEROBIC Specimen Comments: RIGHT ANKLE ABSCESS Culture Observations: NO GROWTH AT 72 HRS [facility] Comment on above: Performed By: #### A NACX ####[facility] Sgadpmagay5706[address] [place], [place] [address]Dr. Yilan Reagan CULTURE OTHERon 02-08-2021 CULTURE OTHER Specimen Comments: RIGHT LEG REAMINGS Culture Observations: NORMAL SKIN ARELI. [facility] Comment on above: Performed By: #### O THCX ####[facility] Yemrzaccsm3[address] [place], [place] [address]Dr. Yilan Reagan CULTURE OTHER Specimen Comments: RIGHT FOOT IRRIGATION SWAB Culture Observations: NO GROWTH AT 72 HRS [facility] Comment on above: Performed By: #### O THCX ####[facility] Omrjxkmbuz88[address] [place], [place] [address]Dr. Yilan Reagan CULTURE OTHER Specimen Comments: RIGHT CALCANEOUS BONE Culture Observations: NORMAL SKIN ARELI. [facility] Comment on above: Performed By: #### O THCX ####[facility] Nnjbhrktzt[address] [place], [place] [address]Dr. Anjali Reagan CULTURE OTHER Specimen Comments: RIGHT TIBIA BONE Culture Observations: NO GROWTH AT 72 HRS Normal [facility] Comment on above: Performed By: #### O THCX ####[facility] Npwsxinxdf1921 [place], [place] [address]Sn. Anjali Reagan CULTURE OTHER Specimen Comments: RIGHT TALUS BONE Culture Observations: NORMAL SKIN ARELI. Normal [facility] Comment on above: Performed By: #### O THCX ####[facility] Oobstxsozg0542 [place] [phone]. Anjali Reagan CULTURE OTHER Specimen Comments: RIGHT ANKLE ABSCESS Culture Observations: NO GROWTH AT 72 HRS Normal [facility] Comment on above: Performed By: #### O THCX ####[facility] Ohxcrhlxnm0377 [place] [phone]. Anjali Reagan GRAM STAINon 02-08-2021 COMMENTS NO ORGANISMS OBSERVED Normal [facility] Comment on above: Performed By: #### G STAIN ####[facility] Lgwymfsiyb6857 [place] [address]Dr. Anjali Reagan DIPHTHEROIDS Normal [facility] Comment on above: Performed By: #### G STAIN ####[facility] Lwkgwfotop8076 [place] [address]Dr. Anjali Reagan EPITHELIALS Normal [facility] Comment on above: Performed By: #### G STAIN ####[facility] Nvwcisvmpb1678 [place] [phone]. Anjali Reagan FUNGAL ELEMENTS Normal [facility] Comment on above: Performed By: #### G STAIN ####[facility] Oxgjjwycon7094 [place] [phone]. Anjali Reagan GRAM NEG BACILLI Normal [facility] Comment on above: Performed By: #### G STAIN ####[facility] Efilkzpwum6999 [place] [phone]. Anjali Reagan GRAM NEG DIPPLOCOCCI Normal [facility] Comment on above: Performed By: #### G STAIN ####[facility] Cfqamwmepi4703 [place] [phone]. Anjali Reagan GRAM POS BACILLI Normal [facility] Comment on above: Performed By: #### G STAIN ####[facility] Cglyxahzxh4931 [place] [address]Dr. Anjali Reagan GRAM POSITIVE COCCI Normal [facility] Comment on above: Performed By: #### G STAIN ####[facility] Qxqyetqeqj8085 [place] [phone]. Anjali Reagan GRAM STAIN SOURCE RIGHT LEG REAMINGS Normal [facility] Comment on above: Performed By: #### G STAIN ####[facility] Eqdewfgovo8263 [place] [address]Dr. Anjali Reagan GRAM STAIN SOURCE RIGHT FOOT POST IRRIGATION SWAB Normal [facility] Comment on above: Performed By: #### G STAIN ####[facility] Xfeuuiecbe3685 [place] [address]Dr. Anjali Reagan GS_DIPTH Normal [facility] Comment on above: Performed By: #### G STAIN ####[facility] Csvhrasmon14[address] [place], [place] [address]Dr. Anjali Reagan WBC MODERATE Normal [facility] Comment on above: Performed By: #### G STAIN ####[facility] Baeyibacho9565 [place] [address]Dr. Anjali Reagan WBC NONE SEEN Normal [facility] Comment on above: Performed By: #### G STAIN ####[facility] Tvgrhicawl5222 [place] [address]Dr. Anjali Reagan COMMENTS NO ORGANISMS OBSERVED Normal [facility] Comment on above: Performed By: #### G STAIN ####[facility] Oixudjrfao1341 [place] [address]Dr. Anjali Reagan DIPHTHEROIDS Normal [facility] Comment on above: Performed By: #### G STAIN ####[facility] [address]jpttbxmao24[address] [place], [place] [address]Dr. Anjali Reagan EPITHELIALS Normal [facility] Comment on above: Performed By: #### G STAIN ####[facility] Dmfsnrhxjk1452 [place] [address]Dr. Anjali Reagan FUNGAL ELEMENTS Normal [facility] Comment on above: Performed By: #### G STAIN ####[facility] Sflcndcbqx1989 [place] [address]Dr. Anjali Reagan GRAM NEG BACILLI Normal [facility] Comment on above: Performed By: #### G STAIN ####[facility] Bhacibsftk2707 [place] [address]Dr. Anjali Reagan GRAM NEG DIPPLOCOCCI Normal [facility] Comment on above: Performed By: #### G STAIN ####[facility] Duxloufrcn4779 [place] [address]Dr. Anjali Reagan GRAM POS BACILLI Normal [facility] Comment on above: Performed By: #### G STAIN ####[facility] Xeeoxdxsob6112[address] [place], [place] [address]Dr. Anjali Reagan GRAM POSITIVE COCCI Normal [facility] Comment on above: Performed By: #### G STAIN ####[facility] Qnenolkpzd4870[address] [place], [place] [address]Dr. Anjali Reagan GRAM STAIN SOURCE RIGHT TIBIA BONE Normal [facility] Comment on above: Performed By: #### G STAIN ####[facility] Dzqmdavkpb4674 [place] [address]Dr. Anjali Reagan GRAM STAIN SOURCE RIGHT CALCANEOUS BONE Normal [facility] Comment on above: Performed By: #### G STAIN ####[facility] Xapuxzqlqk6399 [place] [address]Dr. Anjali Reagan GRAM STAIN SOURCE RIGHT TALUS BONE Normal [facility] Comment on above: Performed By: #### G STAIN ####[facility] Mijbunryvh5518 [place] [address]Dr. Anjali Reagan GS_DIPTH Normal [facility] Comment on above: Performed By: #### G STAIN ####[facility] Ptksrljjig4845[address] [place], [place] [address]Dr. Anjali Reagan WBC NONE SEEN Normal [facility] Comment on above: Performed By: #### G STAIN ####[facility] Fwmnqvsnsh2459 [place] [address]Dr. Anjali Reagan WBC FEW Normal [facility] Comment on above: Performed By: #### G STAIN ####[facility] Qkmajoaudd9186 [place] [phone]. Anjali Reagan COMMENTS NO ORGANISMS OBSERVED Normal [facility] Comment on above: Performed By: #### G STAIN ####[facility] Dspbwzvvyr0076 [place] [phone]. Anjali Reagan DIPHTHEROIDS Normal [facility] Comment on above: Performed By: #### G STAIN ####[facility] Srkrlgkeio4927 [place] [address]Dr. Anjali Reagan EPITHELIALS Normal [facility] Comment on above: Performed By: #### G STAIN ####[facility] Mrawavudxy9207 [place] [address]Dr. Anjali Reagan FUNGAL ELEMENTS Normal [facility] Comment on above: Performed By: #### G STAIN ####[facility] Uupavxnfgc192[address] [place], [place] [address]Dr. Anjali Reagan GRAM NEG BACILLI Normal [facility] Comment on above: Performed By: #### G STAIN ####[facility] Egdshdjdyy8025[address] [place], [place] [address]Dr. Anjali Reagan GRAM NEG DIPPLOCOCCI Normal [facility] Comment on above: Performed By: #### G STAIN ####[facility] Mpwrcvnqam4963 [place] [address]Dr. Anjali Reagan GRAM POS BACILLI Normal [facility] Comment on above: Performed By: #### G STAIN ####[facility] Cdqpuxkvtq7007 [place] [address]Dr. Anjali Reagan GRAM POSITIVE COCCI Normal [facility] Comment on above: Performed By: #### G STAIN ####[facility] Kuxyyqfisy3744 [place] [address]Dr. Anjali Reagan GRAM STAIN SOURCE RIGHT FOOT ABSCESS SWAB Normal [facility] Comment on above: Performed By: #### G STAIN ####[facility] Oufrszbltv5130 [place] [address]Dr. Anjali Reagan GS_DIPTH Normal [facility] Comment on above: Performed By: #### G STAIN ####[facility] Viuhrqaoqr4900 [place] [phone]. Anjali Reagan WBC RARE Normal [facility] Comment on above: Performed By: #### G STAIN ####[facility] Ogunljpsww[address] [place], [place] [id number]. Anjali Reagan HIV 1/2 RAPID (EXPOSURE ONLY )on 02-08-2021 HIV AB Negative Normal [facility] Comment on above: Performed By: #### R PDHIV ####[facility] Uptzebfjcp0735 [place] [phone]. Anjali Reagan HIV AG Negative Normal [facility] Comment on above: Performed By: #### R PDHIV ####[facility] Nucwbqbmei2812[address] [place], [place] [address]Dr. Anjali Reagan INTERNAL CONTROLS Within Normal Limits Normal Wi thin Normal Limits [facility] Comment on above: Performed By: #### R PDHIV ####[facility] Iusngoefot020[address] [place], [place] [address]Dr. Anjali Reagan RAPID HIV INFO SEE BELOW Normal [facility] Comment on above: Result Comment: This test is used for the initial screening of the exposure source. Confirmation of all results will be obtained through reference lab testing. Performed By: #### R PDHIV ####[facility] Aifctugpfb4403[address] [place], [place] [address]Dr. Anjali Reagan POINT OF CARE GLUCOSEon 11-0 Glucose [Mass/Vol] 400 mg/dL Critically high 74-106 [facility] Comment on above: Performed By: #### P OCGLUC ####[facility] Jhrdvcfpku7513 [place] [phone]. Anjali Reagan Glucose [Mass/Vol] 373 mg/dL Critically high 74-106 [facility] Comment on above: Performed By: #### P OCGLUC ####[facility] Hmgotkujxw0427[address] [place], [place] [address]Dr. Anjali Reagan Glucose [Mass/Vol] 159 mg/dL Critically high 74-106 [facility] Comment on above: Performed By: #### P OCGLUC ####[facility] Csdkhgoxeb7586[address] [place], [place] [address]Dr. Anjali Reagan Glucose [Mass/Vol] 160 mg/dL Critically high 74-106 [facility] Comment on above: Performed By: #### P OCGLUC ####[facility] Wkynqtjhao6926[address] [place], [place] [address]Dr. Anjali Reagan SED RATE WESTERGRENon 2020 SED RATE 51 mm/hr Critically high <=20 [facility] Comment on above: Performed By: #### S EDR ####[facility] Trgvkmwsci6404 [place] [address]Dr. Anjali Reagan CBC W MANUAL DIFFon 02-06-20 21 ATYPICAL LYMPH # Normal [facility] Comment on above: Performed By: #### C BCMAN ####[facility] Tygsohwgxy8240[address] [place], [place] [address]Dr. Anjali Reagan ATYPICAL LYMPH % Normal [facility] Comment on above: Performed By: #### C BCMAN ####[facility] Vxyfmhosry4478[address] [place], [place] [address]Dr. Anjali Reagan BAND # 0.2 103/ul Normal 0.0-0.3 [facility] Comment on above: Performed By: #### C BCMAN ####[facility] Feinwmwwea2398[address] [place], [place] [address]Dr. Anjali Reagan BAND % 3 % Normal 0-5 [facility] Comment on above: Performed By: #### C BCMAN ####[facility] Frqordpqem8649[address] [place], [place] [address]Dr. Anjali Reagan BASOM # 0.07 103/ul Normal 0.00-0.10 [facility] Comment on above: Performed By: #### C BCMAN ####[facility] Fvqrgydlur0696[address] [place], [place] [address]Dr. Anjali Reagan BASOM % 1.0 % Normal 0.2-2.0 [facility] Comment on above: Performed By: #### C BCMAN ####[facility] Swizfdhbzu035[address] [place], [place] [address]Dr. Anjali Reagan BLAST # Normal [facility] Comment on above: Performed By: #### C BCMAN ####[facility] Gzzrbhbbqh1267 [place] [phone]. Anjali Reagan BLAST % Normal [facility] Comment on above: Performed By: #### C CORI ####[facility] Oowukmlqcn2159 [place] [phone]. Anjali Reagan CORRECTED WBC Normal 4.0-11.0 [facility] Comment on above: Performed By: #### C CORI ####[facility] Jijuulazvw7526 [place] [phone]. Anjali Reagan EOS # 0.57 103/ul Normal 0.00-0.70 [facility] Comment on above: Performed By: #### C CORI ####[facility] Cszybdwziq3179 [place] [address]Dr. Anjali Reagan EOS% 8.0 % Critically high 0.9-7.0 [facility] Comment on above: Performed By: #### C CORI ####[facility] Yumfobmctb9191 [place] [phone]. Anjali Reagan HCT 32.9 % Critically low 42.0-54.0 [facility] Comment on above: Performed By: #### C CORI ####[facility] Pahlwkyjym6738 [place] [phone]. Anjali Reagan HGB 10.2 g/dl Critically low 14.0-18.0 [facility] Comment on above: Performed By: #### C CORI ####[facility] Ehepxkeoyy4853 [place] [phone]. Anjali Reagan LYMPHM # 0.78 103/ul Critically low 1.20-3.80 [facility] Comment on above: Performed By: #### C CORI ####[facility] Wrliogkrdv4349 [place] [phone]. Anjali Reagan LYMPHM% 11.0 % Critically low 20.5-60.0 [facility] Comment on above: Performed By: #### C CORI ####[facility] Ueksrdundk[address] [place], [place] [address]Dr. Anjali Reagan MCH 24.9 pg Critically low 25.9-34.0 [facility] Comment on above: Performed By: #### C CORI ####[facility] Qqujcqlqoh0269 [place] [phone]. Anjali Reagan MCHC 31.0 g/dl Normal 29.9-35.2 [facility] Comment on above: Performed By: #### C CORI ####[facility] Byctnreqxs2969 [place] [phone]. Anjali Reagan MCV 80.4 fL Normal 80.0-94.0 [facility] Comment on above: Performed By: #### C CORI ####[facility] Mikvfdjszd4140 [place] [address]Dr. Anjali Reagan METAMYELOCYTE # Normal [facility] Comment on above: Performed By: #### C CORI ####[facility] Nfubhisdqx8003 [place] [phone]. Anjali Reagan METAMYELOCYTE % Normal [facility] Comment on above: Performed By: #### C CORI ####[facility] Rskzmsnutj6586 [place] [phone]. Anjali Reagan MONOM# 0.57 103/ul Normal 0.30-0.80 [facility] Comment on above: Performed By: #### C CORI ####[facility] Whrpctarme7892 [place] [phone]. Anjali Reagan MONOM% 8.0 % Normal 1.7-12.0 [facility] Comment on above: Performed By: #### C CORI ####[facility] Tutpnrcypi3653 [place] [phone]. Anjali Reagan MPV 9.2 fL Critically low 9.5-13.5 [facility] Comment on above: Performed By: #### C CORI ####[facility] Ntlsghxpcd6907 [place] [phone]. Anjali Reagan MYELOCYTE # Normal [facility] Comment on above: Performed By: #### C CORI ####[facility] Linrdyskfm8285 [place], [place] [address]Cu. Anjali Reagan MYELOCYTE % Normal [facility] Comment on above: Performed By: #### C CORI ####[facility] Quxuywtxoo9480 [place] [phone]. Anjali Reagan NRBC Normal [facility] Comment on above: Performed By: #### C CORI ####[facility] Inpkouiazg7660 [place] [phone]. Anjali Reagan OVALOCYTES 1+ Normal [facility] Comment on above: Performed By: #### C CORI ####[facility] Wxtlqzyszp5526 [place] [phone]. Anjali Reagan PLT 209 103/ul Normal 150-450 [facility] Comment on above: Performed By: #### C CORI ####[facility] Vcalbrpotf6823 [place] [phone]. Anjali Reagan RBC 4.09 106/ul Critically low 4.70-6.10 [facility] Comment on above: Performed By: #### C CORI ####[facility] Ajaljzhhyd1485 [place] [phone]. Anjali Reagan RDW 18.2 % Critically high 11.0-15.0 [facility] Comment on above: Performed By: #### [employer] PERSAUD ####[facility] M[address]iswazak[address] [place] [id number]. Anjali Reagan SEG # 4.90 103/ul Normal 1.40-6.50 [facility] Comment on above: Performed By: #### C CORI ####[facility] Iqeqeslebq[address] [place] [id number]. Anjali Reagan SEG % 69.0 % Normal 43.0-75.0 [facility] Comment on above: Performed By: #### C CORI ####[facility] Wbqccbqzjf6184 [place] [id number]. Anjali Reagan WBC 7.1 103/ul Normal 4.0-11.0 [facility] Comment on above: Performed By: #### C CORI ####[facility] Hkrrojyvzf[address] [place] [id number]. Anjali Reagan CT ABD/PELVIS WO CONon 02-05 CT ABD/PELVIS WO CON Normal [facility] Covid-19 PCR (CVDTB)on SARS-CoV-2 (COVID-19) RNA MEREDITH+probe Ql (Unsp spec) Not detected Normal NOT DETECTED [facility] Comment on above: Result Comment: This test is not yet approved or cleared by the [place] FDA. When there are no FDA-approved or cleared tests available, and other criteria are met, FDA can make tests available under an emergency access mechanism called an Emergency Use Authorization (EUA). The EUA for this test is supported by the Party Supply Specialist of Health and Human Service's (HHS's) declaration [...] symptomsconsistent with SARS-CoV-2. Performed By: #### C VDTB ####[facility] [address]ap[address] [place] [address]Dr. Anjali Reagan ER URINE PROFILEon Bilirubin Ql (U) Negative Normal NEGATIVE The [facility] Comment on above: Performed By: #### E RUR ####[facility] Anjrzcdsmm22[address] [place] [address]Dr. Anjali Reagan Clarity (U) CLEAR Normal CLEAR [facility] Comment on above: Performed By: #### E RUR ####[facility] Tkosmulmfx[address] [place] [address]Dr. Anjali Reagan Color (U) LT. YELLOW Normal YELLOW [facility] Comment on above: Performed By: #### E RUR ####[facility] Bonaubmvat[address] [place] [address]Dr. Anjali Tez TAAHD A micrscopic examination will be performed if indicated. Normal [facility] Comment on above: Performed By: #### E RUR ####[facility] Amfrpbewzj[address] [place], [place] [address]Dr. Anjali Reagan Glucose Ql (U) Negative Normal NEGATIVE The [facility] Comment on above: Performed By: #### E RUR ####[facility] Elguscnyfa92[address] [place], [place] [address]Dr. Anjali Reagan Hemoglobin Ql (U) Negative Normal NEGATIVE The [facility] Comment on above: Performed By: #### E RUR ####[facility] Tmexnypdgy[address] [place], [place] [address]Dr. Anjali Tez Ketones Ql (U) Negative Normal NEGATIVE The [facility] Comment on above: Performed By: #### E RUR ####[facility] [address]yrmjzvydv[address] [place], [place] [address]Dr. Anjali Tez LEUKOCYTES Negative Normal NEGATIVE [facility] Comment on above: Performed By: #### E RUR ####[facility] Ezjxjdumii35[address] [place], [place] [address]Dr. Anjali Reagan Nitrite Ql (U) Negative Normal NEGATIVE The [facility] Comment on above: Performed By: #### E RUR ####[facility] Hrmhulcgoe464[address] [place], [place] [address]Dr. Biancaramona Tez pH (U) 6.0 [pH] Normal 5-9 [facility] Comment on above: Performed By: #### E RUR ####[facility] Fwhqsxusvk16[address] [place], [place] [address]Dr. Biancaramona Tez SPEC GRAVITY 1.015 Normal 1.005-<=1.0 25 [facility] Comment on above: Performed By: #### E RUR ####[facility] Utxtmwnhtr40[address] [place], [place] [address]Dr. Anjali Reagan UA PROTEIN TRACE Normal NEGATIVE/ TRACE [facility] Comment on above: Performed By: #### E RUR ####[facility] Dnbyfdknqt[address] [place] [address]Dr. Anjali Reagan UR MICRO IND NOT INDICATED Normal [facility] Comment on above: Performed By: #### E RUR ####[facility] Rlqzloihpy26[address] [place], [place] [address]Dr. Anjali Reagan Urobilinogen Qn (U) 0.2 {Geremias'U}/dL Normal 0.2 - 1. 0 [facility] Comment on above: Performed By: #### E RUR ####[facility] Amopzqflqt4[address] [place], [place] [address]Dr. Anjali Reagan PROF 14(COMP METB)on 021 Albumin [Mass/Vol] 2.8 g/dL Critically low 3.5-5.0 [facility] Comment on above: Performed By: #### C MP ####[facility] Skueswkrpr50[address] [place], [place] [address]Dr. Anjali Reagan Albumin/Globulin [Mass ratio] 0.6 {ratio} Normal [facility] Comment on above: Performed By: #### C MP ####[facility] Xhqbkkopzz57[address] [place], [place] [address]Dr. Anjali Reagan ALP [Catalytic activity/Vol] 125 U/L Normal 38-126 [facility] Comment on above: Performed By: #### C MP ####[facility] Xtodsghvmd13[address] [place], [place] [address]Dr. Anjali Reagan ALT [Catalytic activity/Vol] 22 U/L Normal 21-72 [facility] Comment on above: Performed By: #### C MP ####[facility] Solvoheumf3196[address] [place], [place] [address]Dr. Anjali Reagan Anion gap [Moles/Vol] 13.1 mmol/L Normal [facility] Comment on above: Performed By: #### C MP ####[facility] Ammtpdadvj8235[address] [place], [place] [address]Dr. Anjali Reagan AST [Catalytic activity/Vol] 26 U/L Normal 17-59 [facility] Comment on above: Performed By: #### C MP ####[facility] Njutipwltt8[address] [place] [address]Dr. Anjali Reagan Bilirubin [Mass/Vol] 0.8 mg/dL Normal 0.2-1.3 [facility] Comment on above: Performed By: #### C MP ####[facility] Uijwpiolfj26[address] [place], [place] [address]Dr. Anjali Reagan Calcium [Mass/Vol] 9.2 mg/dL Normal 8.4-10.2 [facility] Comment on above: Performed By: #### C MP ####[facility] Pccvbjdidq44[address] [place], [place] [address]Dr. Anjali Reagan Chloride [Moles/Vol] 98 mmol/L Normal 98-107 [facility] Comment on above: Performed By: #### C MP ####[facility] Rdgmhfesod28[address] [place], [place] [address]Dr. Anjali Reagan CO2 [Moles/Vol] 28.7 mmol/L Normal 22.0-30.0 [facility] Comment on above: Performed By: #### C MP ####[facility] Qwvhuesunn1443[address] [place], [place] [address]Dr. Anjali Reagan Creatinine [Mass/Vol] 1.62 mg/dL Critically high 0.66-1.25 [facility] Comment on above: Performed By: #### C MP ####[facility] Hqxxasuxkf[address] [place], [place] [address]Dr. Anjali Tez EGFR-AF RWANDAN 52 mL/min/1.73m2 Critically low >=60 [facility] Comment on above: Performed By: #### C MP ####[facility] Vsjwvekefh[address] [place], [place] [address]Dr. Anjali Tez EGFR-NON AF RWANDAN 43 mL/min/1.73m2 Critically low >=60 [facility] Comment on above: Performed By: #### C MP ####[facility] Itkdwnuqzl[address] [place], [place] [address]Dr. Anjali Tez Globulin (S) [Mass/Vol] 4.6 g/dL Normal T [facility] Comment on above: Performed By: #### C MP ####[facility] Rleejhymbb8313 [place] [address]Dr. Anjali Reagan Glucose [Mass/Vol] 192 mg/dL Critically high 74-106 T [facility] Comment on above: Performed By: #### C MP ####[facility] Yxxccgfiim2205 [place] [address]Dr. Biancaramona Reagan Potassium [Moles/Vol] 4.8 mmol/L Normal 3.4-5.0 [facility] Comment on above: Performed By: #### C MP ####[facility] Fnfdiqmgpd9656 [place] [address]Dr. Anjali Tez Protein [Mass/Vol] 7.4 g/dL Normal 6.1-8.2 [facility] Comment on above: Performed By: #### C MP ####[facility] Rnzqkxaguy[address] [place], [place] [address]Dr. Anjali Reagan Sodium [Moles/Vol] 135 mmol/L Critically low 137-145 [facility] Comment on above: Performed By: #### C MP ####[facility] Hsnbvplsvh23[address] [place], [place] [address]Dr. Biancaramona Reagan Urea nitrogen [Mass/Vol] 40.0 mg/dL Critically high 9.0-20 .0 [facility] Comment on above: Performed By: #### C MP ####[facility] Bpzebpqpes69[address] [place], [place] [address]Dr. Anjali Reagan Urea nitrogen/Creatinine [Mass ratio] 24.7 mg/mg Normal [facility] Comment on above: Performed By: #### C MP ####[facility] Lxukubwyeb50[address] [place] [address]Dr. Biancaramona Reagan PROF CHEM 8 (BAS METB)on Anion gap [Moles/Vol] 13.4 mmol/L Normal [facility] Comment on above: Performed By: #### B MP ####[facility] Rbqighuxob39[address] [place], [place] [address]Dr. Anjali Reagan Calcium [Mass/Vol] 9.3 mg/dL Normal 8.4-10.2 [facility] Comment on above: Performed By: #### B MP ####[facility] Lbnwpabvhh1422 [place] [address]Dr. Anjali Reagan Chloride [Moles/Vol] 98 mmol/L Normal 98-107 [facility] Comment on above: Performed By: #### B MP ####[facility] Gwntemyybw0066[address] [place], [place] [address]Dr. Anjali Tez CO2 [Moles/Vol] 28.8 mmol/L Normal 22.0-30.0 [facility] Comment on above: Performed By: #### B MP ####[facility] Rpafmtiovo17[address] [place], [place] [address]Dr. Anjali Tez Creatinine [Mass/Vol] 1.72 mg/dL Critically high 0.66-1.25 [facility] Comment on above: Performed By: #### B MP ####[facility] Hasdcfegzw1218[address] [place], [place] [address]Dr. Anjali Reagan EGFR-AF RWANDAN 49 mL/min/1.73m2 Critically low >=60 [facility] Comment on above: Performed By: #### B MP ####[facility] Zjvrnlftyf14[address] [place], [place] [address]Dr. Biancaramona Tez EGFR-NON AF RWANDAN 40 mL/min/1.73m2 Critically low >=60 [facility] Comment on above: Performed By: #### B MP ####[facility] Eyewhhbdbm7[address] [place], [place] [address]Dr. Anjali Reagan Glucose [Mass/Vol] 204 mg/dL Critically high 74-106 [facility] Comment on above: Performed By: #### B MP ####[facility] Bmybdcezqb12[address] [place], [place] [address]Dr. Anjali Reagan Potassium [Moles/Vol] 4.2 mmol/L Normal 3.4-5.0 [facility] Comment on above: Performed By: #### B MP ####[facility] Coyzybnnip7[address] [place], [place] [address]Dr. Anjali Reagan Sodium [Moles/Vol] 136 mmol/L Critically low 137-145 Th [facility] Comment on above: Performed By: #### B MP ####[facility] Tgwlffkacb6582 [place], [place] [address]Zx. Anjali Reagan Urea nitrogen [Mass/Vol] 35.0 mg/dL Critically high 9.0-20 .0 [facility] Comment on above: Performed By: #### B MP ####[facility] Xwmakrmnwx1741 [place], [place] [address]Jo. Anjlai Reagan Urea nitrogen/Creatinine [Mass ratio] 20.3 mg/mg Normal [facility] Comment on above: Performed By: #### B MP ####[facility] Yirrtzdwrg0310 [place], [place] [address]Ba. Anjali Reagan CT ANKLE RT WO CONon 021 CT ANKLE RT WO CON Normal [facility] XR ANKLE RT MIN 3 VIEWSon XR ANKLE RT MIN 3 VIEWS Normal [facility] XR ANKLE RT MIN 3 VIEWSon XR ANKLE RT MIN 3 VIEWS Normal [facility] Otolaryngology Office/Clinic Noteon 01-19-2021 Ot[address]aryngology [...] Dr. Freed. Previous pathology by physician in [place] about 1 year ago. PMHx of multiple [...] FASTI NG:YESFASTING: YES Performed By: #### 1 0868, 590, 654 #### [facility] [address], [address] [place] [phone] Crm Business Analyst: Juan Meraz MD CO2 [Moles/Vol] 26 mmol/L Normal 20-32 [facility] Comment on above: Order Comment: FASTI NG:YESFASTING: YES Performed By: #### 1 0165, 490, 905 #### [facility] [address], [address] [place] [address] Crm Business Analyst: Juan Meraz MD Creatinine [Mass/Vol] 1.71 mg/dL High 0.70-1.25 [facility] Comment on above: Order Comment: FASTI NG:YESFASTING: YES Result Comment: For patients >49 years of age, the reference limit for Creatinine is approximately 13% higher for people identified as -Nigerian. Performed By: #### 1 016, 495, 905 #### [facility] [address], [address] [place] [address] Crm Business Analyst: Juan Meraz MD eGFR NON-AFR. RWANDAN 42 mL/min/1.73m2 Low > OR = 60 [facility] Comment on above: Order Comment: FASTI NG:YESFASTING: YES Performed By: #### 1 164, 620, 901 #### [facility] [place] [address] Crm Business Analyst: Juan Meraz MD GFR/1.73 sq M.predicted among blacks MDRD (S/P/Bld) [Vol rate/Area] 48 mL/min/{1.73_m2} Low > OR = 60 [facility] Comment on above: Order Comment: FASTI NG:YESFASTING: YES Performed By: #### 1 016, 319, 905 #### [facility] [place] [address] Crm Business Analyst: Juan Meraz MD Glucose [Mass/Vol] 186 mg/dL High 65-99 [facility] Comment on above: Order Comment: FASTI NG:YESFASTING: YES Result Comment: Fasting reference interval For someone without known diabetes, a glucose value >125 mg/dL indicates that they may have diabetes and this should be confirmed with a follow-up test. Performed By: #### 1 016, 498, 905 #### [facility] [place] [address] Crm Business Analyst: Juan Meraz MD Potassium [Moles/Vol] 4.3 mmol/L Normal 3.5-5.[address] [facility] Comment on above: Order Comment: FASTI NG:YESFASTING: YES Performed By: #### 1 0165, 496, 905 #### [facility] [place] [address] Crm Business Analyst: Juan Meraz MD Sodium [Moles/Vol] 137 mmol/L Normal 135-146 [facility] Comment on above: Order Comment: FASTI NG:YESFASTING: YES Performed By: #### 1 0165, 496, 905 #### [facility] [place] [address] Crm Business Analyst: Juan Meraz MD Urea nitrogen [Mass/Vol] 34 mg/dL High 7-25 [facility] Comment on above: Order Comment: FASTI NG:YESFASTING: YES Performed By: #### 1 0165, 496, 905 #### [facility] [place] [address] Crm Business Analyst: Juan Meraz MD Urea nitrogen/Creatinine [Mass ratio] 20 mg/mg Normal 6-22 [facility] Comment on above: Order Comment: FASTI NG:YESFASTING: YES Performed By: #### 1 0165, 496, 905 #### [facility] [place] [address] Crm Business Analyst: Juan Meraz MD CBC (INCLUDES DIFF/PLT)on Basophils (Bld) [#/Vol] 0.026 10*3/uL Normal 0-200 [facility] Comment on above: Performed By: #### 1 0165, 496, 905 #### [facility] [place] [address] Crm Business Analyst: Juan Meraz MD Basophils/100 WBC (Bld) 0.3 % Normal [facility] Comment on above: Performed By: #### 1 0165, 496, 905 #### [facility] [address] [place] [address] Crm Business Analyst: Juan Meraz MD Eosinophils (Bld) [#/Vol] 0.202 10*3/uL Normal 15-500 [facility] Comment on above: Performed By: #### 1 0165, 496, 905 #### [facility] of [place] [address] Crm Business Analyst: Juan Meraz MD Eosinophils/100 WBC (Bld) 2.3 % Normal [facility] Comment on above: Performed By: #### 1 0165, 496, 905 #### [facility] [place] [address] Crm Business Analyst: Juan Meraz MD Erythrocyte distribution width (RBC) [Ratio] 15.7 % High 11.0-15.0 [facility] Comment on above: Performed By: #### 1 0165, 496, 905 #### [facility] [place] [address] Crm Business Analyst: Juan Meraz MD Hematocrit (Bld) [Volume fraction] 34.9 % Low 38.5-50.0 [facility] Comment on above: Performed By: #### 1 016, 496, 905 #### [facility] [place] [address] Crm Business Analyst: Juan Meraz MD Hemoglobin (Bld) [Mass/Vol] 10.9 g/dL Low 13.2-17.1 [facility] Comment on above: Performed By: #### 1 016, 496, 905 #### [facility] [place] [address] Crm Business Analyst: Juan Meraz MD Lymphocytes (Bld) [#/Vol] 0.748 10*3/uL Low 850-3900 [facility] Comment on above: Performed By: #### 1 016, 496, 905 #### [facility] [place] [address] Crm Business Analyst: Juan Meraz MD Lymphocytes/100 WBC (Bld) 8.5 % Normal [facility] Comment on above: Performed By: #### 1 0165, 496, 905 #### [facility] [place] [address] Crm Business Analyst: Juan Meraz MD MCH (RBC) [Entitic mass] 25.1 pg Low 27.0-33.0 [facility] Comment on above: Performed By: #### 1 0165, 496, 905 #### [facility] [place] [address] Crm Business Analyst: Juan Meraz MD MCHC (RBC) [Mass/Vol] 31.2 g/dL Low 32.0-36.[address] [facility] Comment on above: Performed By: #### 1 0165, 496, 905 #### [facility] [place] [address] Crm Business Analyst: Juan Meraz MD MCV (RBC) [Entitic vol] 80.4 fL Normal 80.0-100.0 [facility] Comment on above: Performed By: #### 1 0165, 496, 905 #### [facility] [place] [address] Crm Business Analyst: Juan Meraz MD Monocytes (Bld) [#/Vol] 0.889 10*3/uL Normal 200-950 [facility] Comment on above: Performed By: #### 1 016, 496, 905 #### [facility] [place] [address] Crm Business Analyst: Juan Meraz MD Monocytes/100 WBC (Bld) 10.1 % Normal [facility] Comment on above: Performed By: #### 1 0165, 496, 905 #### [facility] [place] [address] Crm Business Analyst: Juan Meraz MD Neutrophils (Bld) [#/Vol] 6.934 10*3/uL Normal 2393-6849 [facility] Comment on above: Performed By: #### 1 0165, 496, 905 #### [facility] [place] [address] Crm Business Analyst: Juan Meraz MD Neutrophils/100 WBC (Bld) 78.8 % Normal [facility] Comment on above: Performed By: #### 1 0165, 496, 905 #### [facility] [place] [address] Crm Business Analyst: Juan Meraz MD Platelet mean volume (Bld) [Entitic vol] 9.9 fL Normal 7.5-12.5 [facility] Comment on above: Performed By: #### 1 0165, 496, 905 #### [facility] [place] [address] Crm Business Analyst: Juan Meraz MD Platelets (Bld) [#/Vol] 353 10*3/uL Normal 140-400 [facility] Comment on above: Performed By: #### 1 0165, 496, 905 #### [facility] [place] [address] Crm Business Analyst: Juan Meraz MD RBC (Bld) [#/Vol] 4.34 10*6/uL Normal 4.20-5.80 [facility] Comment on above: Performed By: #### 1 0165, 496, 905 #### [facility] [place] [address] Crm Business Analyst: Juan Meraz MD WBC (Bld) [#/Vol] 8.8 10*3/uL Normal 3.8-10.8 [facility] Comment on above: Performed By: #### 1 0165, 496, 905 #### [facility] [place] [address] Crm Business Analyst: Juan Meraz MD Otolaryngology Office/Clinic Noteon 01-14-2021 [...] Dr. Freed. Previous pathology by physician in [place] about 1 year ago. PMHx of multiple [...] blood loss: Minimal Complications: None Operative Indications: Aani is a very pleasant 65-year-old male who [...] with any severe issues. Electronically signed by Matt URENA Manojvince Romeo 01/11/21 20:09 EDT Normal [facility] [...] tolerated this procedure well. Electronically signed by Matt URENA Chirag Ousmane 01/11/21 09:28 EDT Normal [facility] POC Glucose Randomon 021 Glucose [Mass/Vol] 211 mg/dL High 70-99 [facility] Comment on above: Performed By: #### C D:[id number] ####[address] 01-10-2021 Employed in healthcare? Unknown Normal [facility] Comment on above: Performed By: #### C D:[id number] ####[address] [address] Group care resident? Unknown Normal [facility] Comment on above: Performed By: #### C D:[id number] ####[address] [place] [address] In ICU? No Normal [facility] Comment on above: Performed By: #### C D:[id number] ####[address] [place] [address] status? Not Applicable Normal [facility] Comment on above: Performed By: #### C D:[id number] ####[address] [address] SARS-CoV-2 (COVID-19) RNA MEREDITH+probe Ql (Unsp spec) [...] Negative ADDITIONAL INFORMATION: Testing performed on the [employer] 3600 using the SARS-CoV-2 Antigen test. Results are for the identification of SARS-CoV-2 nucleocapsid antigen. The [employer] SARS-CoV-2 Antigen test can detect both viable [...] Administration?s Emergency Use Authorization. HCP Fact Sheet: https://www.fda.gov/media/159434/download Patient Fact Sheet: https://www.fda.gov/media/067075/download Performed By: #### C D:[id number] ####[place] [address] SARS-CoV-2 (COVID-19) RNA MEREDITH+probe Ql (Unsp spec) Unknown Normal [facility] Comment on above: Performed By: #### C D:[id number] ####[place] [address] Symptomatic as defined by CDC? Unknown Normal [facility] Comment on above: Performed By: #### C D:[id number] ####[place] [address] BASIC METABOLIC PANELon 10-0 Calcium [Mass/Vol] 9.6 mg/dL Normal 8.6-10.3 [facility] Comment on above: Performed By: #### 1 0165, 496, 905 #### [facility] [place] [address] Crm Business Analyst: Juan Meraz MD Chloride [Moles/Vol] 100 mmol/L Normal 98-110 [facility] Comment on above: Performed By: #### 1 0165, 490, 905 #### [facility] [place] [address] Crm Business Analyst: Juan Meraz MD CO2 [Moles/Vol] 30 mmol/L Normal 20-32 [facility] Comment on above: Performed By: #### 1 0165, 496, 905 #### [facility] [place] [address] Crm Business Analyst: Juan Meraz MD Creatinine [Mass/Vol] 1.67 mg/dL High 0.70-1.[address] [facility] Comment on above: Result Comment: For patients >49 years of age, the reference limit for Creatinine is approximately 13% higher for people identified as -Nigerian. Performed By: #### 1 0165, 497, 905 #### [facility] [address] [place] [address] Crm Business Analyst: Juan Meraz MD eGFR NON-AFR. RWANDAN 43 mL/min/1.73m2 Low > OR = 60 [facility] Comment on above: Performed By: #### 1 0165, 498, 905 #### [facility] [place] [address] Crm Business Analyst: Juan Meraz MD GFR/1.73 sq M.predicted among blacks MDRD (S/P/Bld) [Vol rate/Area] 50 mL/min/{1.73_m2} Low > OR = 60 [facility] Comment on above: Performed By: #### 1 0165, 494, 905 #### [facility] [place] [address] Crm Business Analyst: Juan Meraz MD Glucose [Mass/Vol] 124 mg/dL High 65-99 [facility] Comment on above: Result Comment: Fasting reference interval For someone without known diabetes, a glucose value between 100 and 125 mg/dL is consistent with prediabetes and should be confirmed with a follow-up test. Performed By: #### 1 0165, 497, 905 #### [facility] [place] [address] Crm Business Analyst: Juan Meraz MD Potassium [Moles/Vol] 4.7 mmol/L Normal 3.5-5.[address] [facility] Comment on above: Performed By: #### 1 0165, 494, 905 #### [facility] [place] [address] Crm Business Analyst: Juan Meraz MD Sodium [Moles/Vol] 138 mmol/L Normal 135-146 [facility] Comment on above: Performed By: #### 1 0165, 493, 905 #### [facility] [place] [address] Crm Business Analyst: Juan Meraz MD Urea nitrogen [Mass/Vol] 40 mg/dL High 7-25 [facility] Comment on above: Performed By: #### 1 0165, 496, 905 #### [facility] [address], [address] [place], [place] [id number] Crm Business Analyst: Juan Meraz MD Urea nitrogen/Creatinine [Mass ratio] 24 mg/mg High 6- [facility] Comment on above: Performed By: #### 1 0165, 496, 905 #### [facility] [address], [address] [place] [address] Crm Business Analyst: Juan Meraz MD HEMOGLOBIN A1con 12-31-2020 HEMOGLOBIN [...] 1 0165, 496, 905 #### [facility] [address], [address] [place], [place] [id number] Crm Business Analyst: Juan Meraz MD Provider Letteron 12-31-2020 Provider Letter [facility] Ear, Nose & Throat; Facial Plastic Surgery [address] [place] [address] P: [phone] F: [phone] Chirag Gutierrez DO, [facility] Re: Anai [id number] Date of Visit: 01/05/2021 ATTENTION MEDICAL RECORDS: We are requesting pathology report for biopsy of left ear done within the last 2 years for patient Anai Goodman 59. Thank you, M[facility] Provider Letter [facility] Ear, Nose & Throat; Facial Plastic Surgery [address] [place] [address] P: [phone] F: [phone] Chirag Gutierrez DO, [facility] Re: Anai [id number] Date of Visit: 01/05/2021 ATTENTION MEDICAL RECORDS: We are requesting pathology report for biopsy of left ear done within the last 2 years for patient Anai Goodman. [facility] you, [facility] Provider Letter [facility] Ear, Nose & Throat; Facial Plastic Surgery [address] [place] [address] P: [phone] F: [phone] Chirag Gutierrez DO [facility] Deon Brito [address] [place] [address] [place] [address] Re: Anai [id number] Date of Visit: 01/05/2021 Patient is a mutual patient, referred to us by your office for lesion of his left ear. We are in need of his previous pathology report for this, he returns to our office for biopsy of this lesion on 01/05/21. We would appreciate if you could please fax over this information prior to 01/05/21. Thank you, [facility] URIC ACIDon 12-31-2020 Urate [Mass/Vol] 10.3 mg/dL High 4.0-8.0 [facility] Comment on above: Order Comment: FASTI NG:YES FASTING: YES Result Comment: Ther apeutic target for gout patients: <6.0 mg/dL Performed By: #### 1 [id number], 075, 122 #### [facility] [address], [address] [place] [id number] Crm Business Analyst: Juan Meraz MD Provider Letteron 12-17-2020 Provider Letter Deon Brito [address] [place] [address] [place] [address] Re: Anai Goodman Date of Visit: 12/15/2020 Dear Deon Braxton, I am referring Anai to your office for care. Attached your will find my notes and impressions from our visit. Deon Braxton DO Re:Anai Goodman 1955 Date of Visit: 12/15/2020 Dear Deon Braxton DO: I had the pleasure of evaluating patient, Anai Goodman, in the [facility] clinic on 12/15/2020. Attached you will [...] Gutierrez, DO [facility] [place] [address] Let me know if you have any [...] Dr. Freed. Previous pathology by physician in [place] about 1 year ago. PMHx of multiple [...] mL, 1 Refill(s), 12/18/20 14:00:00 EDT, [id number] Medical Decision Making Chronic conditions NOT treated [...] Dr. Freed. Previous pathology by physician in [place] about 1 year ago. PMHx of multiple [...] XR ANKLE RT MIN 3 VIEWS Normal [facility] XR FOOT RT MIN 3 VIEWSon XR FOOT RT MIN 3 VIEWS Normal [facility] XR FOOT RT MIN 3 VIEWSon XR FOOT RT MIN 3 VIEWS Normal [facility] XR FOOT RT MIN 3 VIEWSon XR FOOT RT MIN 3 VIEWS Normal [facility] Consultation Noteon 05-11-19 21 Consultation Note [id number] .[id number]:127 Normal [facility] Vital Signs Date Time Vital Sign Value Performing Clinician Facility 04-12-2023 11:11-0500 Body height 182.9 cm Terry Lock INTERIOR DESIGN COORDINATOR-BUILDING TRADES TEACHER [facility] 04-12-2023 11:11-0500 Body mass index (BMI) [Ratio] 28.89 kg/m2 Terry Lock APRN-BUILDING TRADES TEACHER Work Phone: [facility] 04-12-2023 11:11-0500 Body weight 96.62 kg Terry Lock APRN-BUILDING TRADES TEACHER Work Phone: [facility] 04-12-2023 11:11-0500 Diastolic blood pressure 74 mm[Hg] Terry Lock APRN-BUILDING TRADES TEACHER Work [facility]: [facility] 04-12-2023 11:11-0500 Heart rate 74 /min Terry Lock APRN-BUILDING TRADES TEACHER [facility] 04-12-2023 11:11-0500 SaO2% (BldA) [Mass fraction] 97 % Terry Lock APRN-BUILDING TRADES TEACHER Work [facility]: [facility] 04-12-2023 11:11-0500 Systolic blood pressure 126 mm[Hg] Terry Lock APRN-BUILDING TRADES TEACHER Work Phone: [facility] 12-05-2022 13:00-0400 Body height 177.8 cm Ghanshyam Kaye Other [facility] Other 12-05-2022 13:00-0400 Diastolic blood pressure 70 mm[Hg] Ghanshyam Kaye Other [facility] Other 12-05-2022 13:00-0400 SaO2% (BldA) [Mass fraction] 97 % Ghanshyam Kaye Other [facility] Other 12-05-2022 13:00-0400 Systolic blood pressure 110 mm[Hg] Ghanshyam Kaye Other [facility] Other 10-05-2022 10:00-0400 Body height 177.8 cm Dung Serna Other [facility] Other 10-05-2022 10:00-0400 Body mass index (BMI) [Ratio] 31.85 kg/m2 Dung Serna Other [facility] Other 10-05-2022 10:00-0400 Body weight 100.7 kg Dung Serna Other [facility] Other 10-05-2022 10:00-0400 Diastolic blood pressure 70 mm[Hg] Dung Serna Other [facility] Other 10-05-2022 10:00-0400 Systolic blood pressure 118 mm[Hg] Dung Serna Other [facility] Other 06-02-2022 11:00-0500 Body height 177.8 cm Reddy Brandt Other [facility] Other 06-02-2022 11:00-0500 Body mass index (BMI) [Ratio] 30.13 kg/m2 Reddy Brandt Other [facility] Other 06-02-2022 11:00-0500 Body weight 95.26 kg Reddy Karly Other [facility] Other 03-15-2022 13:45-0500 Body height 177.8 cm Reddy Karly Other [facility] Other 03-15-2022 13:45-0500 Body mass index (BMI) [Ratio] 30.85 kg/m2 Reddy Karly Other [facility] Other 03-15-2022 13:45-0500 Body weight 97.52 kg Reddy Brandt Other [facility] Other 02-07-2022 14:00-0500 Body height 177.8 cm Ghanshyam Kaye Other [facility] Other 02-07-2022 14:00-0500 Body mass index (BMI) [Ratio] 30.85 kg/m2 Ghanshyam Kaye Other [facility] Other 02-07-2022 14:00-0500 Body weight 97.52 kg Ghanshyam Kaye Other [facility] Other 02-07-2022 14:00-0500 Diastolic blood pressure 72 mm[Hg] Ghanshyam Shermaney Other [facility] Other 02-07-2022 14:00-0500 SaO2% (BldA) [Mass fraction] 98 % Ghanshyam Kaye Other [facility] Other 02-07-2022 14:00-0500 Systolic blood pressure 118 mm[Hg] Ghanshyam Kaye Other [facility] Other 11-29-2021 14:35-0400 Diastolic blood pressure 78 mm[Hg] DO Deon Cordovahas Work Phone: [facility] 11-29-2021 14:35-0400 Heart rate 75 /min DO Deon Yuhas Work Phone: [facility] 11-29-2021 14:35-0400 Respiratory rate 16 /min DO Deon Yuhas Work Phone: [facility] 11-29-2021 14:35-0400 SaO2% (BldA) [Mass fraction] 95 % DO Deon Tashahas Work Phone: [facility] 11-29-2021 14:35-0400 Systolic blood pressure 123 mm[Hg] DO Deon Cordovahas Work Phone: [facility] 11-29-2021 13:39-0400 Inhaled oxygen flow rate 8 L/min DO Deon Tashahas Work Phone: [facility] 11-29-2021 13:24-0400 Body temperature 98.5 [degF] DO Deon Cordovahas Work Phone: [facility] 11-29-2021 12:10-0400 Body height 182.88 cm DO Deon Cordovahas Work Phone: [facility] 11-29-2021 12:10-0400 Body mass index (BMI) [Ratio] 30.5 kg/m2 DO Deon Cordovahas Work Phone: [facility] 11-29-2021 12:10-0400 Body weight 102.05 kg DO Deon Cordovahas Work Phone: [facility] 11-03-2021 10:41-0400 Diastolic blood pressure 66 mm[Hg] DO Deon Cordovahas Work Phone: [facility] 11-03-2021 10:41-0400 Heart rate 78 /min DO Deon Cordovahas Work Phone: [facility] 11-03-2021 10:41-0400 Respiratory rate 16 /min DO Deon Cordovahas Work Phone: [facility] 11-03-2021 10:41-0400 SaO2% (BldA) [Mass fraction] 97 % DO Deon Tashahas Work Phone: [facility] 11-03-2021 10:41-0400 Systolic blood pressure 121 mm[Hg] DO Deon Tashahas Work Phone: [facility] 11-03-2021 09:41-0400 Body temperature 98 [degF] DO Deon Tashahas Work Phone: [facility] 11-03-2021 09:11-0400 Inhaled oxygen flow rate 8 L/min DO Deon Cordovahas Work Phone: [facility] 11-03-2021 07:37-0400 Body height 182.88 cm DO Deon Yuhas Work Phone: [facility] 11-03-2021 07:37-0400 Body mass index (BMI) [Ratio] 30.5 kg/m2 DO Deon Yuhas Work Phone: [facility] 11-03-2021 07:37-0400 Body weight 102.05 kg DO Deon Yuhas Work Phone: [facility] 11-01-2021 18:03-0400 Diastolic blood pressure 69 mm[Hg] DO Deon Tashahas Work Phone: [facility] 11-01-2021 18:03-0400 Heart rate 71 /min DO Deon Tashahas Work Phone: [facility] 11-01-2021 18:03-0400 Respiratory rate 16 /min DO Deon Tashahas Work Phone: [facility] 11-01-2021 18:03-0400 SaO2% (BldA) [Mass fraction] 99 % DO Deon Tashahas Work Phone: [facility] 11-01-2021 18:03-0400 Systolic blood pressure 124 mm[Hg] DO Deon Tashahas Work Phone: [facility] 11-01-2021 16:21-0400 Body height 182.88 cm DO Deon Tashahas Work Phone: [facility] 11-01-2021 16:21-0400 Body temperature 98 [degF] DO Deon Yuhas Work Phone: [facility] 11-01-2021 16:21-0400 Body weight 102.05 kg DO Deon Yuhas Work Phone: [facility] 10-31-2021 10:30-0400 Body height 177.8 cm Reddy Brandt Other [facility] Other 10-27-2021 05:00-0400 Body temperature 98.6 [degF] DO Deon Tashahas Work Phone: [facility] 10-27-2021 05:00-0400 Diastolic blood pressure 72 mm[Hg] DO Deon Yuhas Work Phone: [facility] 10-27-2021 05:00-0400 Heart rate 70 /min DO Deon Yuhas Work Phone: [facility] 10-27-2021 05:00-0400 Respiratory rate 16 /min DO Deon Cordovahas Work Phone: [facility] 10-27-2021 05:00-0400 SaO2% (BldA) [Mass fraction] 98 % DO Deon Tashahas Work Phone: [facility] 10-27-2021 05:00-0400 Systolic blood pressure 132 mm[Hg] DO Deon Tashahas Work Phone: [facility] 10-24-2021 12:00-0400 Body height 182.88 cm DO Deon Cordovahas Work Phone: [facility] 10-23-2021 05:26-0400 Body weight 70.9 kg DO Deon Yuhas Work Phone: [facility] 10-22-2021 04:14-0400 Inhaled oxygen concentration 21 % DO Deon Yuhas Work Phone: [facility] 10-21-2021 12:00-0400 Body temperature 98.1 [degF] DO Deon Yuhas Work Phone: [facility] 10-21-2021 12:00-0400 Diastolic blood pressure 73 mm[Hg] DO Deon Yuhas Work Phone: [facility] 10-21-2021 12:00-0400 Heart rate 76 /min DO Deon Ramoss Work Phone: [facility] 10-21-2021 12:00-0400 Respiratory rate 18 /min DO Deon Braxton Work Phone: [facility] 10-21-2021 12:00-0400 SaO2% (BldA) [Mass fraction] 95 % DO Deon Braxton Work Phone: [facility] 10-21-2021 12:00-0400 Systolic blood pressure 128 mm[Hg] DO Deon Ramoss Work Phone: [facility] 10-21-2021 06:00-0400 Body weight 99.9 kg DO Deon Braxton Work Phone: [facility] 10-21-2021 02:05-0400 Inhaled oxygen concentration 21 % DO Deon Braxton Work Phone: [facility] 10-19-2021 11:00-0400 Body height 182.88 cm DO Deon Braxton Work Phone: [facility] 10-18-2021 15:37-0400 Inhaled oxygen flow rate 6 L/min DO Deon Braxton Work Phone: [facility] 10-18-2021 13:19-0400 Body mass index (BMI) [Ratio] 29.8 kg/m2 DO Deon Braxton Work Phone: [facility] 10-12-2021 10:00-0400 Body height 177.8 cm Reddy Brandt Other [facility] Other 10-12-2021 10:00-0400 Body mass index (BMI) [Ratio] 32.28 kg/m2 Reddy Brandt Other [facility] Other 10-12-2021 10:00-0400 Body weight 102.06 kg Reddy Brandt Other [facility] Other 10-06-2021 14:15-0400 Body height 177.8 cm Pako Aguilar Other [facility] Other 10-06-2021 14:15-0400 Body mass index (BMI) [Ratio] 32.28 kg/m2 Pako Aguilar Other [facility] Other 10-06-2021 14:15-0400 Body temperature 97.3 [degF] Pako Aguilar Other [facility] Other 10-06-2021 14:15-0400 Body weight 102.06 kg Pako Aguilar Other [facility] Other 10-06-2021 14:15-0400 Diastolic blood pressure 73 mm[Hg] Pako Leon Other [facility] Other 10-06-2021 14:15-0400 Systolic blood pressure 127 mm[Hg] Pako Leon Other [facility] Other 09-08-2021 15:30-0400 Body height 177.8 cm Pako Aguilar Other [facility] Other 09-08-2021 15:30-0400 Body temperature 98.1 [degF] Pako Aguilar Other [facility] Other 09-08-2021 15:30-0400 Diastolic blood pressure 73 mm[Hg] Pako Aguilar Other [facility] Other 09-08-2021 15:30-0400 Systolic blood pressure 149 mm[Hg] Pako Aguilar Other [facility] Other Encounters Encounter Date Encounter Type Care Provider Facility Start: 04-19-2023 End: 04-19-2023 ambulatory Deon Braxton Facility:[facility] Start: 04-19-2023 End: 04-19-2023 ambulatory DO Deon Braxton Work Phone: [facility] Work Phone: Start: 04-19-2023 End: 04-19-2023 Departed Referred DO Deon Braxton Work Phone: [facility]-LAB [facility] Start: 04-13-2023 Stevie london[facility] - [facility] Comment on above: 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, with long-term current use of insulin [place] Start: 04-12-2023 End: 04-12-2023 ambulatory TERRY LOCK [facility] Start: 04-12-2023 Encounter for preprocedural cardiovascular examination TERRY LOCK [facility] Start: 04-12-2023 End: 04-12-2023 Office outpatient visit 25 minutes Terry Lock APRN-BUILDING TRADES TEACHER Work Phone: [facility] Comment on above: Preop cardiovascular exam (Primary Dx); Coronary artery disease involving [place] coronary artery of [place] heart without angina pectoris; Ischemic cardiomyopathy; Chronic systolic congestive heart failure ([facility] Apical mural thrombus; Essential (primary) hypertension; Cardiac defibrillator in place- [employer]; Mixed hyperlipidemia Start: 04-12-2023 End: 04-12-2023 Patient encounter status Terry Leo INTERIOR DESIGN COORDINATOR-BUILDING TRADES TEACHER Work Phone: [facility] Work Phone: Start: 04-05-2023 End: 04-06-2023 ambulatory YOVANNY CALHOUN [facility] Start: 04-03-2023 End: 04-03-2023 ambulatory Dung Serna Other [facility] Other Start: 04-03-2023 Telephone encounter Dung Serna [facility] Neurosurgery Start: 03-22-2023 End: 03-22-2023 ambulatory YOVANNY CALHOUN Not Available Start: 03-22-2023 End: 03-22-2023 ambulatory YOVANNY CALHOUN Not Available Start: 03-07-2023 End: 03-07-2023 ambulatory YOVANNY CALHOUN Not Available Start: 01-11-2023 End: 01-11-2023 ambulatory Ghanshyam Kaye Other [facility] Other Start: 01-11-2023 Telephone encounter Ghanshyam Vargas [facility] Pain Management Start: 12-05-2022 End: 12-05-2022 ambulatory Ghanshyam Vargas Other [facility] Other Start: 12-05-2022 Office outpatient vi sit 15 minutes Ghanshyam Kaye [facility] Rehab and Spine Start: 10-05-2022 Office outpatient ne w 30 minutes Dung Serna [facility] Neurosurgery Start: 10-05-2022 End: 10-05-2022 ambulatory Dung E Kareem [facility] Other Start: 08-02-2022 End: 08-02-2022 ambulatory Reddy Brandt Other [facility] Other Start: 08-02-2022 Office outpatient vi sit 15 minutes Reddy Brandt [facility] Start: 06-02-2022 End: 06-02-2022 ambulatory Reddy Brandt Other [facility] Other Start: 06-02-2022 Postop follow up vis it related to original px Reddy Brandt [facility] Start: 05-12-2022 End: 05-12-2022 ambulatory Reddy Brandt Other [facility] Other Start: 05-12-2022 Telephone encounter Reddy Brandt [facility] Start: 05-03-2022 End: 05-03-2022 ambulatory Deon Braxton Facility:[facility] Start: 05-03-2022 End: 05-03-2022 ambulatory DO Deon Braxton Work Phone: [facility] Work Phone: Start: 05-03-2022 End: 05-03-2022 Patient encounter procedure DO Deon Braxton Work Phone: [facility]-[address] Start: 04-28-2022 End: 04-28-2022 ambulatory Reddy Brandt Other [facility] Other Start: 04-28-2022 Office outpatient vi sit 15 minutes Reddy Brandt [facility] Start: 04-17-2022 End: 04-17-2022 ambulatory Reddy Brandt Other [facility] Other Start: 04-17-2022 Telephone encounter Reddy Brandt [facility] Start: 04-12-2022 End: 04-12-2022 ambulatory Reddy Brandt Other [facility] Other Start: 04-12-2022 Postop follow up vis it related to original px Reddy Brandt [facility] Start: 03-15-2022 End: 03-15-2022 ambulatory Reddy Brandt Other [facility] Other Start: 03-15-2022 Office outpatient vi sit 15 minutes Reddy Brandt [facility] Start: 02-07-2022 End: 02-07-2022 ambulatory Ghanshyam Kaye Other [facility] Other Start: 02-07-2022 Office outpatient vi sit 15 minutes Ghanshyam Kaye [facility] Start: 02-03-2022 End: 02-03-2022 ambulatory Reddy Brandt Other [facility] Other Start: 02-03-2022 Postop follow up vis it related to original px Reddy Karly [facility] Start: 01-24-2022 End: 01-24-2022 ambulatory Reddy Brandt Other [facility] Other Start: 01-24-2022 Telephone encounter Reddy Gil [facility] Start: 01-20-2022 End: 01-20-2022 ambulatory Reddy Meehanley Other [facility] Other Start: 01-20-2022 Postop follow up vis it related to original px Reddy Karly [facility] Start: 01-16-2022 End: 01-16-2022 ambulatory Reddy Brandt Other [facility] Other Start: 01-16-2022 Telephone encounter Reddy Gil [facility] Start: 01-06-2022 End: 01-06-2022 ambulatory Reddy Brandt Other [facility] Other Start: 01-06-2022 Postop follow up vis it related to original px Reddy Karly [facility] Start: 12-23-2021 End: 12-23-2021 ambulatory Reddy Brandt Other [facility] Other Start: 12-23-2021 Postop follow up vis it related to original px Reddy Karly [facility] Start: 12-20-2021 End: 12-20-2021 Discharged Recurring DO Deon Braxton Work Phone: [facility]-Infusion Therapy - O/P Start: 12-14-2021 End: 12-14-2021 ambulatory Reddy Brandt Other [facility] Other Start: 12-14-2021 Postop follow up vis it related to original px Reddy Karly [facility] Start: 12-12-2021 End: 12-12-2021 ambulatory Reddy Brandt Other [facility] Other Start: 12-12-2021 Telephone encounter Reddy MOE [facility] Start: 12-09-2021 End: 12-09-2021 ambulatory Reddy Brandt Other [facility] Other Start: 12-09-2021 Postop follow up vis it related to original px Reddy Brandt [facility] Start: 11-29-2021 End: 11-29-2021 Evaluation and management of inpatient DO Deon Braxton Work Phone: [address] Start: 11-29-2021 End: 11-29-2021 Admission to same day surgery center DO Deon Tashadonna [facility] [place] [facility] Start: 11-28-2021 End: 11-28-2021 ambulatory Reddy Brandt Other [facility] Other Start: 11-28-2021 Postop follow up vis it related to original px Reddy Brandt [facility] Start: 11-21-2021 End: 11-21-2021 ambulatory Reddy Brandt Other [facility] Other Start: 11-21-2021 Telephone encounter Reddy MOE G [facility] Start: 11-03-2021 End: 11-03-2021 Admission to same day surgery center DO Deon Braxton [facility] [place] [facility] Start: 11-02-2021 End: 11-02-2021 ambulatory Reddy Brandt Other [facility] Other Start: 11-02-2021 Postop follow up vis it related to original px Reddy Karly [facility] Start: 11-02-2021 End: 11-02-2021 Patient encounter procedure DO Deon Braxton Work Phone: [facility]-Pre-Surgical Testing Start: 11-01-2021 End: 11-01-2021 Emergency department patient visit DO Deon Braxton Work Phone: [facility]-Emergency Room Start: 11-01-2021 End: 11-01-2021 ambulatory Reddy Brandt Other [facility] Other Start: 11-01-2021 Telephone encounter Reddy Brandt [facility] Start: 10-31-2021 End: 10-31-2021 ambulatory Reddy Brandt Other [facility] Other Start: 10-31-2021 Postop follow up vis it related to original px Reddy Brandt [facility] Start: 10-21-2021 End: 10-27-2021 Evaluation and management of inpatient DO Deon Braxton Work Phone: [facility] Start: 10-18-2021 End: 10-21-2021 Evaluation and management of inpatient DO Deon Braxton Work Phone: [facility]-4 [facility] Start: 10-14-2021 End: 10-14-2021 Patient encounter procedure DO Deon Braxton Work Phone: [facility]-Pre-Surgical Testing Start: 10-12-2021 End: 10-12-2021 ambulatory Reddy Brandt Other [facility] Other Start: 10-12-2021 Office outpatient vi sit 25 minutes Reddy Brandt [facility] Start: 10-10-2021 End: 10-10-2021 Patient encounter procedure DO Deon Ramoss Work Phone: [facility]-MRI [facility] [place] Start: 10-06-2021 End: 10-06-2021 Patient encounter procedure DO Deon Richards Work Phone: [facility]-Lab [facility] Start: 10-06-2021 End: 10-06-2021 ambulatory Reddy Brandt Other [facility] Other Start: 10-06-2021 Office outpatient vi sit 25 minutes Pako Aguilar [facility] Start: 10-06-2021 Telephone encounter Reddy [facility] Start: 09-29-2021 End: 09-29-2021 Patient encounter procedure DO Deon Braxton Work Phone: [facility]-Pacemaker Check Start: 09-26-2021 End: 09-26-2021 ambulatory Reddy Brandt Other [facility] Other Start: 09-26-2021 Telephone encounter Reddy [facility] Start: 09-21-2021 End: 09-21-2021 Patient encounter procedure DO Deon Braxton Work Phone: [facility]Ray [facility] Start: 09-21-2021 ambulatory SALINA LEE Faci lity:[facility] Start: 09-09-2021 End: 09-10-[address] DEON BRAXTON Facility:[facility] Start: 09-09-2021 End: 09-10-2021 ambulatory SALINA LEE Facility:[facility] Start: 09-08-2021 End: 09-08-2021 ambulatory Pako Aguilar Other [facility] Other Start: 09-08-2021 Office outpatient vi sit 25 minutes Pako Aguilar [facility] Start: 08-31-2021 End: 09-01-2021 ambulatory SALINA LEE Facility:[facility] Start: 08-26-2021 End: 08-27-2021 ambulatory SALINA LEE Facility:[facility] Start: 08-24-2021 End: 08-25-2021 ambulatory SALINA LEE Facility:[facility] Start: 08-10-2021 ambulatory SALINA LEE Faci lity:[facility] Start: 07-05-2021 End: 07-06-2021 ambulatory AMAR WOODY Facility:[facility] Start: 06-06-2021 End: 06-07-2021 ambulatory DELONG [...] [place] Facility:[facility] Start: 04-11-2021 End: 04-12-2021 ambulatory BALJEET LEONG Facility:[facility] Start: 04-07-2021 End: 04-08-2021 ambulatory SALINA [...] SALINA LEE Facility:[facility] Start: 02-28-2021 ambulatory DEON PAKAKILA Ho lity:[facility] Start: 02-23-2021 End: 02-24-2021 ambulatory SALINA LEE Facility:[facility] Start: 02-22-2021 ambulatory DEON PAKAKILA Ho lity:[facility] Start: 02-17-2021 End: 02-18-2021 ambulatory SALINA LEE Facility:[facility] Start: 02-09-2021 Encounter for preprocedural laboratory examination SALINA LEE [facility] Start: 02-08-2021 End: 02-12-2021 Evaluation and management [...] Start: 01-11-2021 End: 01-11-2021 ambulatory DEON BRAXTON Facility:[facility] Start: 01-10-2021 End: 01-11-2021 ambulatory DEON BRAXTON Facility:[facility] Start: 12-08-2020 End: 12-09-[address] DEON BRAXTON Facility:[facility] Start: 12-03-2020 End: 12-04-[address] DEON BRAXTON Facility:[facility] Start: 11-29-2020 End: 11-30-2020 ambulatory SALINA LEE Facility:[facility] Start: 11-25-2020 End: 11-26-2020 ambulatory SALINA LEE Facility:[facility] Start: 11-22-2020 End: 11-23-2020 ambulatory BALJEET LEONG Facility:H1 Start: 11-18-2020 End: 11-19-2020 ambulatory BALJEET LEONG Facility:H1 Start: 11-11-2020 End: 11-12-2020 ambulatory BALJEET LEONG Facility:H1 Start: 11-04-2020 End: 11-05-2020 ambulatory SALINA LEE Facility:H1 Procedures Date Procedure Procedure Detail Performing Clinician Start: 04-12-2023 Ecg routine ecg w/le ast 12 lds w/i&r Terry Lock APRN-BUILDING TRADES TEACHER Work Phone: Start: 03-22-2023 Adult depression scr eening assessment Terry Lock INTERIOR DESIGN COORDINATOR-BUILDING TRADES TEACHER Work Phone: Start: 12-29-2022 Diabetic retinal eye exam Terry Lock APRN-BUILDING TRADES TEACHER Work Phone: Start: 10-26-2022 Microalbumin [Mass/v olume] in Urine by Test strip Terry Lock INTERIOR DESIGN COORDINATOR-BUILDING TRADES TEACHER Work Phone: Start: 11-29-2021 Incision and drainag e of lower extremity DO Deon Braxton Work Phone: Start: 11-03-2021 Amputation of right lower limb DO Deon Braxton Work Phone: Start: 10-18-2021 Amputation of right lower limb DO Deon Braxton Work Phone: Start: 10-10-2021 MRI of lower leg DO Rylan Braxton Work Phone: Start: 09-21-2021 Plain X-ray of right tibia and right fibula DO Deon Braxton Work Phone: Start: 09-21-2021 X-ray of right knee DO Deon Braxton Work Phone: Start: 02-11-2021 Fusion of Right Tars al Joint with Internal Fixation Device, Open Approach [facility] Start: 02-11-2021 Introduction of Othe r Anti-infective into Joints, Open Approach [facility] Start: 02-11-2021 Removal of Spacer fr om Right Ankle Joint, Percutaneous Approach [facility] Start: 02-08-2021 Excision of Right Fi bula, Open Approach [facility] Start: 02-08-2021 Introduction of Othe r Anti-infective into Joints, Open Approach [facility] Start: 02-08-2021 Removal of Internal Fixation Device from Right Ankle Joint, Open Approach [facility] Aerobic microbial culture DO Deon Braxton Work [...] Td Vaccines (2 - Td or Tdap) [facility] Start: 04-12-2024 Adult BMI Screening Adult BMI Screening [facility] Start: 04-12-2024 Tobacco Screening Tobacco Screening [facility] Start: 03-22-2024 Depression Screening Depression Screening [facility] Start: 03-22-2024 Fall Risk Screening Fall Risk Screening [facility] Start: 12-30-2023 Glaucoma screening Diabetic Ophthalmology Exam [facility] Start: 11-29-2023 End: 11-29-2023 Patient encounter procedure 11/29/2023 9:00 AM EDT Office Visit [facility] [address] [place] [address] [facility] Start: 11-24-2023 Medicare Annual Wellness Visit Medicare Annual Wellness Visit [facility] Start: 10-27-2023 Diabetic foot examination Diabetic Foot Exam [facility] Start: 10-27-2023 Urine screening for protein Urine Microalbumin [facility] Start: 11-29-2021 [facility] Start: 11-29-2021 [facility] Start: 11-29-2021 Incision and drainage of lower extremity OR I&D Exploration Upper/Lower Extremity (Right) [facility] Start: 11-29-2021 End: 11-29-2021 Admission to same day surgery center Below knee amputation [facility] Start: 11-03-2021 [facility] Start: 11-03-2021 [facility] Start: 11-03-2021 Amputation of right lower limb OR Leg Amputation Above/Below (Right) [facility] Start: 11-03-2021 End: 11-03-2021 Admission to same day surgery center Departed Surgical Day Care [facility] Start: 11-02-2021 End: 11-02-2021 Patient encounter procedure Departed Clinical [facility] Start: 11-01-2021 End: 11-01-2021 Emergency department patient visit Departed Emergency [facility] Start: 10-27-2021 [facility] Work Phone: Start: 10-21-2021 Hospital admission [facility] Work Phone: Start: 10-21-2021 Referral to clinical agricultural equipment operator [facility] Work Phone: Start: 10-21-2021 [facility] Work Phone: Start: 10-18-2021 Referral to clinical agricultural equipment operator [facility] Work Phone: Start: 10-18-2021 Detachment at Right Lower Leg, Mid, Open Approach Detachment at Right Lower Leg, Mid, Open Approach [facility] Start: 10-17-2021 [facility] Work Phone: Start: 10-14-1975 Adult BMI Follow Up Plan Adult BMI Follow Up Plan [facility] Patient Education [facility] Work Phone: Patient referral [facility] Work Phone: SARS-CoV-2 (COVID-19 ) N gene [Presence] in Respiratory specimen by MEREDITH with probe detection [facility] Work Phone: Immunizations Immunization Date Immunization Notes Care Provider Fa bijal 03-12-2023 Covid-19,mrna, Lnp-s , Pf, 50mcg/0.5ml 12+ Terry Lock INTERIOR DESIGN COORDINATOR-BUILDING TRADES TEACHER Work Phone: [facility] 03-12-2023 Influenza Vaccine, Quadrivalent, Adjuvanted Terry Lock INTERIOR DESIGN COORDINATOR-BUILDING TRADES TEACHER Work Phone: [facility] 03-12-2023 RSV, mAb, nirsevimab-alip, 1 mL, to 24 months Terry Lock INTERIOR DESIGN COORDINATOR-BUILDING TRADES TEACHER Work Phone: [facility] 03-12-2023 RSV, recombinant, protein subunit RSVpreF, adjuvant reconstituted, 0.5 mL, PF Terry Lock INTERIOR DESIGN COORDINATOR-BUILDING TRADES TEACHER Work Phone: [facility] 06-14-2022 zoster vaccine recombinant Terry Lock INTERIOR DESIGN COORDINATOR-BUILDING TRADES TEACHER Work Phone: [facility] 04-15-2022 Covid-19, Mrna, Lnp- s, Bivalent, Pf, 50mcg/0.5ml or 25mcg/0.25ml Terry Lock INTERIOR DESIGN COORDINATOR-BUILDING TRADES TEACHER Work Phone: [facility] 04-15-2022 zoster vaccine recombinant Terry Lock INTERIOR DESIGN COORDINATOR-BUILDING TRADES TEACHER Work Phone: [facility] 04-11-2022 Influenza, High-dose , Quadrivalent Terry Leo INTERIOR DESIGN COORDINATOR-BUILDING TRADES TEACHER Work Phone: [facility] 03-01-2021 COVID-19 mRNA-1273 (Moderna) DO Deon Cordovava [facility] Work Phone: [facility] 03-01-2021 Seasonal, quadrivale nt, recombinant, injectable influenza vaccine, preservative free Terry Lock INTERIOR DESIGN COORDINATOR-BUILDING TRADES TEACHER Work Phone: [facility] 06-25-2020 COVID-19 mRNA-1273 (Moderna) DO Deon Cordovava [facility] Work Phone: [facility] 05-28-2020 COVID-19, mRNA, LNP- S, PF, 100mcg/0.5mL Dose Terry Lock INTERIOR DESIGN COORDINATOR-BUILDING TRADES TEACHER Work Phone: [facility] 05-25-2020 COVID-19, mRNA, LNP- S, PF, 100mcg/0.5mL Dose Terry Lock INTERIOR DESIGN COORDINATOR-BUILDING TRADES TEACHER Work Phone: [facility] 01-14-2020 influenza, seasonal, injectable Terry Leo INTERIOR DESIGN COORDINATOR-BUILDING TRADES TEACHER Work Phone: [facility] 12-30-2019 influenza, injectabl e, quadrivalent, preservative free Terry Lock INTERIOR DESIGN COORDINATOR-BUILDING TRADES TEACHER Work Phone: [facility] 04-07-2019 Influenza, injectabl e, Madin Yumiko Canine Kidney, preservative free, quadrivalent Terry Lock INTERIOR DESIGN COORDINATOR-BUILDING TRADES TEACHER Work Phone: [facility] 12-31-2018 pneumococcal conjuga te vaccine, 13 valent Terry Lock INTERIOR DESIGN COORDINATOR-BUILDING TRADES TEACHER Work Phone: [facility] 01-23-2018 influenza, injectabl e, quadrivalent, contains preservative Terry Lock INTERIOR DESIGN COORDINATOR-BUILDING TRADES TEACHER Work Phone: [facility] 01-23-2018 influenza, injectabl e, quadrivalent, preservative free eTrry Lock INTERIOR DESIGN COORDINATOR-BUILDING TRADES TEACHER Work Phone: [facility] 02-05-2017 influenza, injectabl e, quadrivalent, preservative free Terry Lock INTERIOR DESIGN COORDINATOR-BUILDING TRADES TEACHER Work Phone: [facility] 02-05-2017 pneumococcal conjuga te vaccine, 13 valent Terry Lock INTERIOR DESIGN COORDINATOR-BUILDING TRADES TEACHER Work Phone: [facility] 01-14-2017 influenza, injectabl e, quadrivalent, contains preservative Teryr Lock INTERIOR DESIGN COORDINATOR-BUILDING TRADES TEACHER Work Phone: [facility] 01-14-2016 tetanus toxoid, redu joseph diphtheria toxoid, and acellular pertussis vaccine, adsorbed Terry Lock INTERIOR DESIGN COORDINATOR-BUILDING TRADES TEACHER Work Phone: [facility] 01-02-2016 influenza virus vacc ine, unspecified formulation Terry Lock INTERIOR DESIGN COORDINATOR-BUILDING TRADES TEACHER Work Phone: [facility] 08-13-2015 zoster vaccine, live Terry Lock INTERIOR DESIGN COORDINATOR-BUILDING TRADES TEACHER Work Phone: [facility] 12-22-2014 influenza, seasonal, injectable, preservative free Terry Lock INTERIOR DESIGN COORDINATOR-BUILDING TRADES TEACHER Work Phone: [facility] 01-26-2014 pneumococcal conjuga te vaccine, 13 valent Terry Lock INTERIOR DESIGN COORDINATOR-BUILDING TRADES TEACHER Work Phone: [facility] 01-12-2014 influenza, seasonal, injectable Terry Lock INTERIOR DESIGN COORDINATOR-BUILDING TRADES TEACHER Work Phone: [facility] 01-12-2014 Seasonal trivalent influenza vaccine, adjuvanted, preservative free Terry Lock INTERIOR DESIGN COORDINATOR-BUILDING TRADES TEACHER Work Phone: [facility] 09-17-2012 pneumococcal polysaccharide vaccine, 23 valent Terry Lock INTERIOR DESIGN COORDINATOR-BUILDING TRADES TEACHER Work Phone: [facility] 09-17-2012 pneumococcal vaccine , unspecified formulation Terry Lock INTERIOR DESIGN COORDINATOR-BUILDING TRADES TEACHER Work Phone: [facility] Payers Date Payer Category Payer Medicare [id number] 2023 Medicare [facility] MED[facility]ARE [facility] MEDICARE ADVANTAGE [id number] 2023-Present [phone] [address] [place] [address] [id number] 2022 Self-pay [id number] 2022 Medicare [id number] 2021 Unknown 1959 Medicare [id number] 2.16.840.1.889074.19 1957 Unknown [id number] 2.840.1.724271.3.579.2.196 1957 Unknown [id number] 2.840.1.881774.3.579.2.196 1957 Unknown [id number] 2.840.1.001549.3.579.2.196 1957 Unknown [id number] 2.16.840.1.807509.3.579.2.196 1957 Unknown [id number] 2.16.840.1.536010.3.579.2.593 1957 Unknown [id number] 2.16.840.1.031525.3.579.2.593 1957 Unknown [id number] 2.16.840.1.338914.3.579.2.593 1957 Unknown [id number] 2.16.840.1.131278.3.579.2.593 1957 Unknown [id number] 2.16.840.1.978093.3.579.2.593 1957 Unknown [id number] 2.16.840.1.775344.3.579.2.593 1957 Unknown [id number] 2.16.840.1.777661.3.579.2.593 1957 Unknown [id number] 2.16.840.1.958814.3.579.2.593 1957 Unknown [id number] 2.16.840.1.832731.3.579.2.593 1957 Unknown [id number] 2.16.840.1.481714.3.579.2.59 1957 Unknown [id number] 2.16.840.1.709825.3.579.2.593 1957 Unknown [id number] 2.16.840.1.234204.3.579.2.593 1957 Unknown [id number] 2.16.840.1.715535.3.579.2.593 1957 Unknown [id number] 2.16.840.1.268247.3.579.2.59 1957 Unknown [id number] 2.16.840.1.676972.3.579.2.593 1957 Unknown [id number] 2.16.840.1.567086.3.579.2.593 1957 Unknown [id number] 2.16.840.1.530160.3.579.2.593 1957 Unknown [id number] 2.16.840.1.057329.3.579.2.59 1957 Unknown [id number] 2.16.840.1.723775.3.579.2.593 1957 Unknown [id number] 2.16.840.1.922102.3.579.2.593 1957 Unknown [id number] 2.16.840.1.886262.3.579.2.593 1957 Unknown [id number] 2.16.840.1.547371.3.579.2.593 1957 Unknown [id number] 2.16.840.1.695165.3.579.2.593 1957 Unknown [id number] 2.16.840.1.695151.3.579.2.593 1957 Unknown [id number] 2.16.840.1.375928.3.579.2.59 1957 Unknown [id number] 2.16.840.1.833597.3.579.2.59 1957 Unknown [id number] 2.16.840.1.429024.3.579.2.59 1957 Unknown [id number] 2.16.840.1.788608.3.579.2.593 1957 Unknown [id number] 2.16.840.1.255058.3.579.2.593 1957 Unknown [id number] 2.16.840.1.429956.3.579.2.59 1957 Unknown [id number] 2.16.840.1.884621.3.579.2.593 1957 Unknown [id number] 2.16.840.1.941329.3.579.2.59 1957 Unknown [id number] 2.16.840.1.489236.3.579.2.593 1957 Unknown [id number] 2.16.840.1.997394.3.579.2.593 1957 Unknown [id number] 2.16.840.1.425534.3.579.2.593 1957 Unknown [id number] 2.16.840.1.953959.3.579.2.593 1957 Unknown [id number] 2.16.840.1.252665.3.579.2.59 1957 Unknown [id number] 2.16.840.1.832777.3.579.2.593 1957 Unknown [id number] 2.16.840.1.498706.3.579.2.59 1957 Unknown [id number] 2.16.840.1.513315.3.579.2.59 1957 Unknown [id number] 2.16.840.1.216720.3.579.2.59 1957 Unknown [id number] 2.16.840.1.066387.3.579.2.59 1957 Unknown [id number] 2.16.840.1.681925.3.579.2. 1957 Unknown [id number] 2.16.840.1.906168.3.579.2.593 1957 Unknown [id number] 2.16.840.1.309308.3.579.2.59 1957 Unknown [id number] 2.16.840.1.762949.3.579.2.593 1957 Unknown [id number] 2.16.840.1.493510.3.579.2.59 1957 Unknown [id number] 2.16.840.1.238804.3.579.2.593 1957 Unknown [id number] 2.16.840.1.199098.3.579.2.593 1957 Unknown [id number] 2.16.840.1.893158.3.579.2.593 1957 Unknown [id number] 2.16.840.1.787877.3.579.2.593 1957 Unknown [id number] 2.16.840.1.155849.3.579.2.593 1957 Unknown [id number] 2.16.840.1.741685.3.579.2.593 1957 Unknown [id number] 2.16.840.1.616747.3.579.2.593 1957 Unknown [id number] 2.16.840.1.765800.3.579.2.593 1957 Unknown [id number] 2.16.840.1.642586.3.579.2.593 1957 Unknown [id number] 2.16.840.1.170612.3.579.2.593 1957 Unknown [id number] 2.16.840.1.963581.3.579.2.593 1957 Unknown [id number] 2.16.840.1.563975.3.579.2.1259 1957 Unknown [id number] 2.16.840.1.525484.3.579.2.1259 1957 Unknown [id number] 2.16.840.1.344391.3.579.2.1259 1957 Unknown [id number] 2.16.840.1.875754.3.579.2.1286 1957 Unknown [id number] 2.16.840.1.453280.3.579.2.1286 Unknown MMO [id number] Unknown [facility] [id number] Unknown [id number] 2.16.840.1.010391.3.579.2.531 Unknown [id number] 2.16.840.1.661668.3.579.2.531 Unknown [id number] 2.16.840.1.772264.3.579.2.531 Social History Date Type Detail Facility Unknown if ever smoked [facility] Start: 04-11-2022 End: 04-12-2023 Sex Assigned At [facility] Start: 10-19-2021 End: 11-29-2021 Tobacco smoking status NHIS Never smoked tobacco (finding) [facility] Start: 1955 Sex Assigned At Male [facility] Start: 01-18-2022 Tobacco use and exposure Smokeless tobacco non-user [facility] Start: 04-12-2023 Alcohol intake Current drinker of alcohol (finding) [facility] Start: 04-11-2022 End: 04-12-2023 History of Social function [facility] Do you belong to any clubs or organizations such as orthodox groups, unions, fraternal or athletic groups, or school groups? No [facility] Are you now , , , , never or living with a partner? [facility] How often to you hav e a drink containing alcohol? 2-4 times a month [facility] How many standard dr inks containing alcohol do you have on a typical day? 1 or 2 [facility] How often do you hav e 6 or more drinks on 1 occasion? Never [facility] How hard is it for y ou to pay for the very basics like food, housing, medical care, and heating Somewhat hard [facility] Adolescent depressio n screening assessment 0 [facility] Do you feel stress - tense, restless, nervous, or anxious, or unable to sleep at night because your mind is troubled all the time - these days [OSQ] Not at all [facility] Start: 04-11-2022 Education 21 [facility] Start: 09-10-2019 Alcohol Comment social [facility] Start: 1955 Sex Assigned At Not on file [facility] Medical Equipment Procedure Code Equipment Code Equipment Origin al Text Equipment Identifier Dates Gft Hmn Tiss 250 mg Amniofill - [id number] - [id number] Start: 12-27-2018 Gft Sft Tis Matr istem - [id number] - [id number] Start: 01-27-2019 Tiss Grafix Prim e 3x4cm - [id number] - [id number] Start: 09-15-2019 Evera Mri Xt Vr Defibrillator [id number] Start: 07-13-2015 Sprint Quattro S ecure Mri [id number] Start: 07-13-2015 Tissue Epifix 2x 4 Cm - [id number] - [id number] Start: 12-27-2018 USE DIRECTED FOUR TIMES DAILY [id number] Start: 08-07-2022 Goals Date Patient Goal Desired Activity /State Personal health goal Comment on above: Formatting of this n ote might be different from the original. Evaluation of progress towards goal: Safe dc transition from hospital to home with family support. Resume with [facility]. Personal health goal Comment on above: Formatting of this n ote might be different from the original. Evaluation of progress towards goal: Pt plans to discharge home with [facility]. Functional Status Date Assessment Result Facility 10-27-2021 Functional status Patient is Pro gressing Toward Baseline [facility] Work Phone: 10-21-2021 Functional status Patient is Pro gressing Toward Baseline [facility] Work Phone: 10-18-2021 Functional status Patient at Baseline [facility] Work Phone: Mental Status Date Assessment Result Facility 10-27-2021 Cognitive function Cognitive Sta tus Patient at Baseline [facility] Work Phone: 10-21-2021 Cognitive function Cognitive Sta tus Patient is Progressing Toward Baseline [facility] Work Phone: 10-18-2021 Cognitive function Cognitive Sta tus Patient at Baseline [facility] Work Phone: Clinical Notes 01-05-2021 to 04-12-2023 Terry Lock, INTERIOR DESIGN COORDINATOR-BUILDING TRADES TEACHER - 04/12/2023 11:30 AM Sue High, CARBON DIOXIDE OPERATOR - 04/12/2023 11:30 AM EST Note Date & Type Note Facility 04-12-2023 History of Present illness Narrative Anai Goodman Date of visit: 04/12/2023 Date of : 1955 Age: 67 y.o. Patient Active Problem List Diagnosis Cardiac defibrillator in place- Medtronic Essential (primary) hypertension Apical mural thrombus Ischemic cardiomyopathy Hyperlipemia Type 2 diabetes mellitus with diabetic neuropathic arthropathy, with long-term current use of insulin ([facility]) Chronic systolic congestive heart failure ([facility]) Coronary artery disease involving [place] coronary artery of [place] heart without angina pectoris Hearing loss Personal history of colonic polyps Colon polyps Diverticulosis large intestine w/o perforation or abscess w/o bleeding Chronic obstructive pulmonary disease ([facility]) 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 Gastroesophageal reflux disease with esophagitis without hemorrhage Stage 3b chronic kidney disease ([facility]) Subepithelial esophageal mass Sarcoidosis Diabetic retinopathy ([facility]) Obstructive sleep apnea syndrome Diabetic neuropathy ([facility]) Bilateral sensorineural hearing loss Unilateral complete AKA, right ([facility]) Allergies Allergen Reactions Doxycycline Other reaction(s): Chest Pain Levofloxacin Other reaction(s): Chest Pain Chlorpheniramine Dextromethorphan Hbr Itching Mbydkjodu-Lh-Bsguuwxpmssbm Guaifenesin Other reaction(s): Itching of skin Hydrocodone [...] morning. 90 tablet 1 flash glucose sensor (FREESTYLE LELO 2 SENSOR) kit CHANGE EVERY 2 [...] involving left anterior descending (LAD) coronary artery ([facility]) 05/28/2015 Hyperlipidemia Interstitial lung disease ([facility]) Left ventricular failure ([facility]) MRSA (methicillin resistant staph aureus) culture positive Peptic ulceration Presence of automatic (implantable) cardiac defibrillator ST elevation (STEMI) myocardial infarction ([facility]) 2014 x 5 stents Stage 3b chronic kidney disease ([facility]) 04/22/2020 Unilateral complete AKA, right ([facility]) 03/31/2022 No data recorded No data recorded No data recorded Past Surgical History: Procedure Laterality Date ANKLE LIGAMENT RECONSTRUCTION Right 2020 APPLICATION AMNIOFILL Right 12/27/2018 Performed by Arlen Olguin DPM at [facility] APPLICATION WOUND VAC ( NOT done) Right 01/27/2019 Performed by Terry Hector DPM at [facility] CARDIAC DEFIBRILLATOR PLACEMENT 07/13/2015 Medtronic COLONOSCOPY N/A 04/07/2020 Performed by Deon Braxton DO at [facility] DEBRIDEMENT FOOT EXCISION RT FOOT ULCER, APPLICATION BIOLOGIC SKIN GRAFT RT FOOT, APPLICATION OF WOUND VAC RT FOOT Right 01/27/2019 Performed by Terry Hector DPM at [facility] DEBRIDEMENT FOOT WITH APPLICATION OF GRAFIX Right 09/15/2019 Performed by Terry Hector DPM at [facility] ESOPHAGOGASTRODUODENOSCOPY N/A 05/19/2020 Performed by Deon Braxton DO at [facility] EXCISION 5TH METATARSAL Right 12/30/2018 Performed by Terry Hector DPM at [facility] FINGER SURGERY FOOT SURGERY 07/2020 [facility] Bilateral LAPAROSCOPIC CHOLECYSTECTOMY N/A 06/21/2020 Performed by Deon Justice MD at [facility] LENGTHENING TENDON RIGHT, PLANTAR FASCIOTOMY Right 09/15/2019 Performed by Terry Hector DPM at [facility] SKIN GRAFT LOWER EXTREMITY (APPLICATION OF BIOLOGIC SKIN GRAFT RT FOOT Right 01/27/2019 Performed by Terry Hector DPM at [facility] Family History Problem Relation Age of [...] min Stress: No Stress Concern Present (04/11/2022) [employer] - Occupational Stress Questionnaire Feeling of Stress : Not at all Social Connections: Moderately Integrated (04/11/2022) Social Connection and Isolation Panel [NHANES] Frequency of Communication with Friends and Family: Twice a week Frequency of Social Gatherings with Friends and Family: Twice a week Attends Taoist Services: 1 to 4 times per year [...] Verbalized understanding 2. Coronary artery disease involving [place] coronary artery of [place] heart without angina pectoris -aspirin, statin, beta-doreen 3. Ischemic cardiomyopathy -carvedilol, losartan, Aldactone 4. Chronic systolic congestive heart failure (CMS-HCC) -compensated 5. Apical mural thrombus -small, fixed on echocardiogram 04/2020 -has been maintained on Eliquis therapy 5 mg b.i.d. 6. Essential (primary) hypertension -well controlled 7. Cardiac defibrillator in place- Medtronic -3.4 years of battery life as of [...] Referring Physician: Deon Braxton DO [address] [place] [address] FANNY Owens 04/12/23 1145 Office note faxed to Dr Lee for clearance documented in this encounter [facility]-05-2023 Evaluation note Encounter Date Diagnosis Assessment Notes Dec, Charcot foot due to diabetes mellitus (ICD-10 - E11.610) Dec, Status post transmetatarsal amputation of left foot (ICD-10 - Z89.432) as above, RX written. Dec, Hx of right BKA (ICD-10 - Z89.511) [facility] 07-06-2023 Evaluation note* Encounter Date Diagnosis [...] months. Sep, Peripheral polyneuropathy (ICD-10 - G62.9) [facility] 05-03-2023 Evaluation note* Encounter Date Diagnosis [...] elsewhere classified, subsequent encounter (ICD-10 - T81.31XD) [facility] 03-03-2023 Evaluation note* Encounter Date Diagnosis [...] this time. Patient is following up at [facility] for changes to prosthetic. I did recommend use of a cane to help offload some weight which may reduce his pain. Patient voiced understanding and states no further questions at this time. May, Other specified postprocedural states (ICD-10 - Z98.890) May, Postoperative wound dehiscence, initial encounter (ICD-10 - T81.31XA) [facility] 01-27-2023 Evaluation note* Encounter Date Diagnosis [...] wound dehiscence, initial encounter (ICD-10 - T81.31XA) [facility] 01-11-2023 Evaluation note* Encounter Date Diagnosis [...] wound dehiscence, initial encounter (ICD-10 - T81.31XA) [facility] Other 12-14-2022 Evaluation note* Encounter Date Diagnosis [...] wound dehiscence, initial encounter (ICD-10 - T81.31XA) [facility] Other 11-08-2022 Evaluation note* Encounter Date Diagnosis Assessment Notes Treatment Notes Treatment Clinical Notes Jan, Right below-knee amputee (ICD-10 - Z89.511) Proceed with K3 level, transtibial prosthesis, preparatory. Diligent monitoring of residual limb. Stop wearing prosthesis immediately if wound should worsen, develop erythema, increased pain, etc. Wearing schedule. [facility] Other 11-04-2022 Evaluation note* Encounter Date Diagnosis [...] wound dehiscence, initial encounter (ICD-10 - T81.31XA) [facility] Other 10-21-2022 Evaluation note* Encounter Date Diagnosis [...] wound dehiscence, initial encounter (ICD-10 - T81.31XA) [facility] Other 10-07-2022 Evaluation note* Encounter Date Diagnosis [...] wound dehiscence, initial encounter (ICD-10 - T81.31XA) [facility] Other 09-23-2022 Evaluation note* Encounter Date Diagnosis [...] wound dehiscence, initial encounter (ICD-10 - T81.31XA) [facility] Other 09-14-2022 Evaluation note* Encounter Date Diagnosis [...] wound dehiscence, initial encounter (ICD-10 - T81.31XA) [facility] Other 09-09-2022 Evaluation note* Encounter Date Diagnosis [...] infectious disease. Faxed wound center information to [phone] and left a voicemail. Dec, Other specified postprocedural states (ICD-10 - Z98.890) Dec, Postoperative wound dehiscence, initial encounter (ICD-10 - T81.31XA) [facility] Other 08-30-2022 History and physical note Author Reddy Brandt [facility] November 29, 2021 11:49am Note Date/Time November 29, 2021 11 :32am [facility] [address] [place] [address] Orthopedic Surgery H&P Signed Patient: Anai Goodman MR#: [id number] : 1955 Acct:[id number] Age/Sex: 66 / M Adm Date: 2 Loc: ID Room: Type: [facility] Attending Dr: Reddy Brandt DO Copies to: DO Reddy Rushing DO~ Date of Service: 11/29/2021 HPI History of Present Illness History of Present Illness: Anai is a 66-year-old male well-known to me from a right BKA for osteomyelitis who had wound dehiscence and revision BKA approximately month ago who presents to the ED with repeat wound dehiscence after a repeat fall. PMFSH Vaccinated for COVID-19?: Yes Medical History (Updated [...] 250 mcg POBID 30 days #120 tabs 10/27/21 [Rx Confirmed 11/29/21] coenzyme Q10 200 mg [...] poor healing. I have advised against the long term care social worker use of narcotic pain medication. I have advised to follow all post-operative instructions in order to obtain the best outcome. Informed consent has been verbally affirmed and signed as indicated. Documented By: Reddy Brandt DO 11/29/21 1129 Signed By: <Electronically signed by Reddy Brandt DO> 11/29/21 1140 [facility] Work Phone: 1(189) 862-823308-29-2022 Evaluation note* Encounter Date Diagnosis Assessment Notes [...] remova l of sutures (ICD-10 - Z48.02) [facility] Other 08-03-2022 Evaluation note* Encounter Date Diagnosis [...] was in understanding and wishes to proceed. [facility] Other 08-01-2022 Evaluation note* Encounter Date Diagnosis [...] move forward with treatment at this time. [facility] Other 07-27-2022 Progress note Author Ghanshyam Kaye [facility] October 25, 2021 11:37pm Note Date/Time October 25, 2021 11:3 7pm [facility] [address] [place] [address] Physiatry(Rehab) Progress Note Signed Patient: Anai Goodman MR#: [id number] : 1955 Acct:[id number] Age/Sex: 66 / M Adm Date: 2 Loc: Room: 2E0497-4 Type : ADM IN Attending Dr: Ghanshyam Kaye MD Copies to: ~ Date of Service: 10/25/2021 Subjective Subjective Narrative: Mr. Goodman is a 66 year old male who is admitted to [facility] inpatient rehab for strengthening s/p planned right BKA. Patient's past medical history significant for DM type II, CAD, [place], s/p pacemaker/defibrillator insertion, CKD, osteomyelitis of the [...] % (Auto) 69.1 Lymph % (Auto) 9.4 [place] % (Auto) 14.5 Eos % (Auto) 6.7 Baso % (Auto) 0.3 Neut # (Auto) 4.0 Lymph # (Auto) 0.5 L [place] # (Auto) 0.8 Eos # (Auto) 0.4 [...] MPV Neut % (Auto) Lymph % (Auto) [place] % (Auto) Eos % (Auto) Baso % (Auto) Neut # (Auto) Lymph # (Auto) [place] # (Auto) Eos # (Auto) Baso # [...] Tablet PO 10/21/22 21:59 100 mg QHS [facility] Administration Atorvastatin Calcium 80 mg 10/22/21 09:00 10/25/21 08:07 Atorvastatin 80 Mg Tablet PO 10/22/22 08:59 80 mg QAM [facility] Administration Bisacodyl 10 mg 10/21/21 17:51 Bisacodyl 10 Mg Supp.Rect VT 10/21/22 17:50 DAILY PRN Constipation Bumetanide 1 mg 10/23/21 21:00 10/25/21 20:28 Bumetanide 1 Mg Tablet PO 10/23/22 20:59 1 mg BID CB Administration Carvedilol 6.25 mg 10/21/21 21:00 10/25/21 20:28 Carvedilol 6.25 Mg Tablet PO 10/21/22 20:59 6.25 mg BID [facility] Administration Docusate Sodium 100 mg 10/21/21 17:51 Docusate 100 Mg Capsule PO 10/21/22 17:50 BID PRN Constipation Docusate Sodium 283 mg 10/21/21 17:51 Docusate Enema 283 Mg/5 Ml Enema VT 10/21/22 17:50 DAILY PRN Constipation Insulin Aspart 0 units 10/21/21 17:00 10/25/21 20:27 Insulin Aspart 300 Units/3 Ml Insuln.Pen SUBCUT 10/21/22 16:59 7 units TID.WM.[facility] Administration Protocol Insulin Aspart 0 units 10/21/21 17:00 10/25/21 20:30 Insulin Aspart 300 Units/3 Ml Insuln.Pen SUBCUT 10/21/22 16:59 Not Given TID.WITH.MEALS.[facility] Protocol Insulin Detemir 40 units 10/21/21 22:00 10/25/21 20:28 Insulin Detemir 300 Units/3 Ml Insuln.Pen SUBCUT 10/21/22 21:59 40 [facility] Administration Lactulose 30 gm 10/21/21 17:51 Lactulose 20 Gm/30 Ml Udc PO 10/21/22 17:50 DAILY PRN Constipation Losartan Potassium 25 mg 10/22/21 09:00 10/25/21 08:08 Losartan 25 Mg Tablet PO 10/22/22 08:59 25 mg QAM CB Administration Magnesium Oxide 400 mg 10/22/21 09:00 10/25/21 08:07 Magnesium Oxide 400 Mg Tablet PO 10/22/22 08:59 400 mg QAM CB Administration Multivitamins 1 tab 10/22/21 09:00 10/25/21 [...] equipment to enhance the patient's a functional adventist Ensure adequate nutrition and hydration Sleep: Denies any issues Pain: Denies any issues Discharge planning: Home with in 7 to 10 days. I spent greater than 25 minutes for services, including teyd-ok-ljzm encounter with the patient, discussion of the case, plan of care, and exam; and suqdamh-ku-frzm activities, such as reviewing pertinent store sales consultant documentation, recent therapy notes, laboratory and radiology studies, and discussionof case with care team including nursing, showcase trimmer, and therapists. More than 50 % of time was spent on patient/family counseling or coordination ofcare. Documented By: Ghanshyam Kaye MD 10/25/212333 Signed By: <Electronically signed by Ghanshyam Kaye MD> 10/25/212336 [facility] Work Phone: 1(587) 721-914807-26-2022 Progress note Author Ghanshyam Kaye [facility] October 25, 2021 10:20am Note Date/Time October 23, 2021 11:5 7am [facility] [address] [place] [address] Physiatry(Rehab) Progress Note Signed Patient: Anai Goodman MR#: [id number] : 1955 Acct:[id number] Age/Sex: 66 / M Adm Date: 2 Loc: Room: 4U0311-6 Type : ADM IN Attending Dr: Ghanshyam Kaye MD Copies to: ~ <Chante Narayan APRN - Last Filed: 10/23/21 11:57> Date of Service: 10/23/2021 Subjective <Chante Narayan APRN - Last Filed: 10/23/21 11:57> Subjective Narrative: Mr. Goodman is a 66 year old male who is admitted to [facility] inpatient rehab for strengthening s/p planned right BKA. Patient's past medical history significant for DM type II, CAD, [place], s/p pacemaker/defibrillator insertion, CKD, osteomyelitis of the [...] to side transfer. Review of Systems <Chante Narayan, INTERIOR DESIGN COORDINATOR - Last Filed: 10/23/21 11:57> Constitutional Constitutional: [...] mg 10/21/21 17:51 Bisacodyl 10 Mg Supp.Rect VT 10/21/22 17:50 DAILY PRN Constipation Bumetanide 2 [...] 17:51 Docusate Enema 283 Mg/5 Ml Enema VT 10/21/22 17:50 DAILY PRN Constipation Insulin Aspart 0 units 10/21/21 17:00 10/23/21 09:05 Insulin Aspart 300 Units/3 Ml Insuln.Pen SUBCUT 10/21/22 16:59 1 units TID.WM.[facility] Administration Protocol Insulin Aspart 0 units 10/21/21 17:00 10/23/21 09:06 Insulin Aspart 300 Units/3 Ml Insuln.Pen SUBCUT 10/21/22 16:59 4 units TID.WITH.MEALS.[facility] Administration Protocol Insulin Detemir 40 units 10/21/21 22:00 10/22/21 20:27 Insulin Detemir 300 Units/3 Ml Insuln.Pen SUBCUT 10/21/22 21:59 40 units QHS CB Administration Lactulose 30 gm 10/21/21 17:51 Lactulose 20 Gm/30 Ml Udc PO 10/21/22 17:50 DAILY PRN Constipation Losartan Potassium 25 mg 10/22/21 09:00 10/23/21 09:07 Losartan 25 Mg Tablet PO 10/22/22 08:59 25 mg QAM [facility] Administration Magnesium Oxide 400 mg 10/22/21 09:00 10/23/21 09:07 Magnesium Oxide 400 Mg Tablet PO 10/22/22 08:59 400 mg QAM [facility] Administration Multivitamins 1 tab 10/22/21 09:00 10/23/21 09:07 Multivitamin 1 Tab Tablet PO 10/22/22 08:59 1 tab QAM [facility] Administration Nitroglycerin 0.4 mg 10/21/21 15:50 [...] mcg BID CB Administration Assessment/Plan <Chante Narayan, INTERIOR DESIGN COORDINATOR - Last Filed: 10/23/21 11:57> Assessment/Plan (1) [...] equipment to enhance the patient's a functional adventist Ensure adequate nutrition and hydration Sleep: Denies any issues Pain: Denies any issues Discharge planning: Home with in 7 to 10 days. I spent greater than 15 minutes for services, including oord-io-blfo encounter with the patient, discussion of the case, plan of care, and exam; and jxlqppe-zm-sauh activities, such as reviewing pertinent store sales consultant documentation, recent therapy notes, laboratory and radiology studies, and discussion of case with care team including physician, nursing, showcase trimmer, and therapists. More than 50 % of [...] the chart, including currentorders, allied health and store sales consultant notes, labs/imaging and plan of care as above. Documented By: Chante Narayan APRN 10/23/21 1 150 Signed By: <Electronically signed by KRUNAL Narayan> 10/23/21 1157 <Electronically signed by Ghanshyam Kaye MD> 10/25/21 1026 [facility] Work Phone: 1(709) 848-469407-26-2022 History and physical note Author Ghanshyam Kaye [facility] October 25, 2021 9:36am Note Date/Time October 22, 2021 9:59 am [facility] [address] [place] [address] Physiatry (Rehab) H&P Signed Patient: Anai Goodman MR#: [id number] : 1955 Acct:[id number] Age/Sex: 66 / M Adm Date: 2 Loc: Room: [address] [place] [address] Type : ADM IN Attending Dr: Ghanshyam Kaye MD Copies to: KRUNAL Mendez DO Joseph Riley, MD~ <Chante Narayan APRN - Last Filed: 10/22/21 10:24> Date of Service: 10/22/2021 HPI <Chante Narayan APRN - Last Filed: 10/22/21 10:24> The patient was seen and examined on: 10/21/21 History of Present Illness: Mr. Goodman is a 66 year old male who is admitted to [facility] inpatient rehab for strengthening s/p planned right BKA. Patient's past medical history significant for DM type II, CAD, [place], s/p pacemaker/defibrillator insertion, CKD, osteomyelitis of the [...] additional complaints, except as documented Meds <Chante Narayan, INTERIOR DESIGN COORDINATOR - Last Filed: 10/22/21 10:24> Medications and [...] 100 Mg Tablet) 100 mg PO QHS [facility] Stop: 10/21/22 21:59 Last Admin: 10/21/21 22:12 Dose: 100 mg Atorvastatin Calcium (Atorvastatin 80 Mg Tablet) 80 mg PO QAM [facility] Stop: 10/22/22 08:59 Last Admin: 10/22/21 08:05 Dose: 80 mg Bisacodyl (Bisacodyl 10 Mg Supp.Rect) 10 mg VT DAILY PRN PRN Reason: Constipation Stop: 10/21/22 17:50 Bumetanide (Bumetanide 2 Mg Tablet) 2 mg PO BID [facility] Stop: 10/21/22 20:59 Last Admin: 10/22/21 08:02 Dose: 2 mg Carvedilol (Carvedilol 6.25 Mg Tablet) 6.25 mg PO BID [facility] Stop: 10/21/22 20:59 Last Admin: 10/22/21 08:02 Dose: 6.25 mg Docusate Sodium (Docusate 100 Mg Capsule) 100 mg PO BID PRN PRN Reason: Constipation Stop: 10/21/22 17:50 Docusate Sodium (Docusate Enema 283 Mg/5 Ml Enema) 283 mg VT DAILY PRN PRN Reason: Constipation Stop: 10/21/22 17:50 Insulin Aspart (Insulin Aspart 300 Units/3 Ml Insuln.Pen) 0 units SUBCUT TID.WM.[facility]; Protocol Stop: 10/21/22 16:59 Last Admin: 10/22/21 08:01 Dose: 1 units Insulin Aspart (Insulin Aspart 300 Units/3 Ml Insuln.Pen) 0 units SUBCUT TID.WITH.MEALS.[facility]; Protocol Stop: 10/21/22 16:59 Last Admin: 10/22/21 08:01 Dose: 4 units Insulin Detemir (Insulin Detemir 300 Units/3 Ml Insuln.Pen) 40 [facility] Stop: 10/21/22 21:59 Last Admin: 10/21/21 22:02 Dose: 40 units Lactulose (Lactulose 20 Gm/30 Ml Udc) 30 gm PO DAILY PRN PRN Reason: Constipation Stop: 10/21/22 17:50 Losartan Potassium (Losartan 25 Mg Tablet) 25 mg PO QAM [facility] Stop: 10/22/22 08:59 Last Admin: 10/22/21 08:05 Dose: 25 mg Magnesium Oxide (Magnesium Oxide 400 Mg Tablet) 400 mg PO QAM [facility] Stop: 10/22/22 08:59 Last Admin: 10/22/21 08:05 Dose: 400 mg Multivitamins (Multivitamin 1 Tab Tablet) 1 tab PO QAM [facility] Stop: 10/22/22 08:59 Last Admin: 10/22/21 08:05 Dose: 1 tab Nitroglycerin (Nitroglycerin 0.4 Mg Tab.Subl) 0.4 mg SUBLINGUAL DAILY PRN PRN Reason: Chest Pain Stop: 10/21/22 15:49 Rivaroxaban (Rivaroxaban 10 Mg Tablet) 10 mg PO DAILY [facility] Stop: 10/22/22 08:59 Last Admin: 10/22/21 08:06 Dose: 10 mg Fluticasone/Salmeterol (Fluticasone/Salmeterol 232-14 Mcg 60 Puff Inhaler) 1 puff INHALATION BID [facility] Stop: 10/21/22 20:59 Last Admin: 10/22/21 05:10 Dose: 1 puff Sennosides (Sennosides 8.6 Mg Tablet) 2 tab PO DAILY@12 PRN PRN Reason: If no BM in 2 days Stop: 10/22/22 11:59 Sodium Chloride (Sodium Chloride 0.9 % 10 Ml Syringe) 0 ml IV-PUSH PRN PRN PRN Reason: Flush Stop: 10/21/22 17:50 Spironolactone (Spironolactone 25 Mg Tablet) [facility] Stop: 10/22/22 08:59 Last Admin: 10/22/21 08:05 Dose: 25 mg Vitamin D (Cholecalciferol 125 Mcg (5,000 Units) Tablet) 250 mcg PO BID [facility] Stop: 10/21/22 20:59 Last Admin: 10/22/21 [...] % (Auto) 70.1 Lymph % (Auto) 10.0 [place] % (Auto) 14.8 Eos % (Auto) 4.5 Baso % (Auto) 0.6 Neut # (Auto) 4.6 Lymph # (Auto) 0.7 L [place] # (Auto) 1.0 H Eos # (Auto) [...] MPV Neut % (Auto) Lymph % (Auto) [place] % (Auto) Eos % (Auto) Baso % (Auto) Neut # (Auto) Lymph # (Auto) [place] # (Auto) Eos # (Auto) Baso # [...] 14 days Expected Discharge Destination: Home Rehabilitation [facility]: 05.4 Primary Diagnosis: Right BKA Patient?s/Family?s anticipated outcomes/personal [...] 24 hour daily monitoring and intervention from Motor Vehicle Dispatcher as well as other consulting physicians including internal medicine as well as 24 hour daily sales advisor nursing - for medical safe / optimal [...] problem oriented plan of care Assessment/Plan <Chante Narayan APRN - Last Filed: 10/22/21 10:24> (1) Below [...] equipment to enhance the patient's a functional adventist Ensure adequate nutrition and hydration Sleep: Denies any issues Pain: Denies any issues Discharge planning: Home with in 7 to 10 days. I spent greater than 30 minutes for services, including pljl-cs-ulyo encounter with the patient, discussion of the case, plan of care, and exam; and tuximsv-ef-ayoh activities, such as reviewing pertinent store sales consultant documentation, recent therapy notes, laboratory and radiology studies, and discussion of case with care team including physician, nursing, showcase trimmer, and therapists. More than 50 % of [...] Allied health note review, nursing note review, store sales consultant note review, discussion with nursing and [...] chart, including current orders, allied health and store sales consultant notes, labs/imaging and performed rosado elements of exam and I formulated the plan of care and facilitated the medical decision making and confirmed the nurse practitioner note, as above Documented By: Chante Narayan APRN 10/22/21 0 949 Signed By: <Electronically signed by KRUNAL Narayan> 10/22/21 1024 <Electronically signed by Ghanshyam Kaye MD> 10/25/21 0936 [facility] Work Phone: 1(627) 265-732607-24-2022 Progress note Author Bronwyn Alegre [facility] October 23, 2021 3:11pm Note Date/Time October 23, 2021 3:11 pm [facility] [address] [place] [address] Hospitalist Progress Note Signed Patient: Anai Goodman MR#: [id number] : 1955 Acct:[id number] Age/Sex: 66 / M Adm Date: 2 Loc: Room: [address] [place] [address] Type : ADM IN Attending Dr: Ghanshyam [...] Tablet PO 10/22/22 08:59 80 mg QAM [facility] Administration Bisacodyl 10 mg 10/21/21 17:51 Bisacodyl 10 Mg Supp.Rect VT 10/21/22 17:50 DAILY PRN Constipation Bumetanide 1 mg 10/23/21 21:00 Bumetanide 1 Mg Tablet PO 10/23/22 20:59 BID BC Carvedilol 6.25 mg 10/21/21 21:00 10/23/21 09:07 Carvedilol 6.25 Mg Tablet PO 10/21/22 20:59 6.25 mg BID [facility] Administration Docusate Sodium 100 mg 10/21/21 17:51 Docusate 100 Mg Capsule PO 10/21/22 17:50 BID PRN Constipation Docusate Sodium 283 mg 10/21/21 17:51 Docusate Enema 283 Mg/5 Ml Enema VT 10/21/22 17:50 DAILY PRN Constipation Insulin Aspart 0 units 10/21/21 17:00 10/23/21 13:13 Insulin Aspart 300 Units/3 Ml Insuln.Pen SUBCUT 10/21/22 16:59 2 units TID.WM.[facility] Administration Protocol Insulin Aspart 0 units 10/21/21 17:00 10/23/21 13:14 Insulin Aspart 300 Units/3 Ml Insuln.Pen SUBCUT 10/21/22 16:59 5 units TID.WITH.MEALS.[facility] Administration Protocol Insulin Detemir 40 units 10/21/21 [...] Losartan, Spironolactone 2.? GRACY on CPAP 3. V4FL-T3l 7.3, continue detemir, SSI 4. CKD 3?trend [...] PCP and out patient providers to obtain [facility] record entirely to follow up on illnesses, symptoms, abnormal findings that I have and have not addressed duringthis encounter and hospitalization in out patient setting. Documented By: Bronwyn Alegre MD 10/23/21 1509 Signed By: <Electronically signed by Bronwyn Alegre MD> 10/23/21 1511 [facility] Work Phone: [phone]) 795-251907-24-2022 Consult note Author Bronwyn Alegre [facility] October 23, 2021 7:04am Note Date/Time October 22, 2021 4:18 pm [facility] [address] [place] [address] Hospitalist Consult Note Signed Patient: Anai Goodman MR#: [id number] : 1955 Acct:[id number] Age/Sex: 66 / M Adm Date: 2 Loc: Room: [address] [place] [address] Type : ADM IN Attending Dr: Ghanshyam Kaye MD Copies to: DO Ghanshyam Rushing MD Lynn A Stackhouse ANP-BC Bronwyn Alegre MD~ HPI DATE OF [...] negative unless noted below or in HPI [facility] Attestation Statement: The following information was validated with the patient. Vaccinated for COVID-19?: Yes Medical History (Updated 10/22/21 @ 16:57 by SATURNINO Villatoro-BC) Amputated toe of left foot x5 Arthritis [...] mg 10/21/21 17:51 Bisacodyl 10 Mg Supp.Rect VT 10/21/22 17:50 DAILY PRN Constipation Bumetanide 2 mg 10/21/21 21:00 10/22/21 08:02 Bumetanide 2 Mg Tablet PO 10/21/22 20:59 2 mg BID [facility] Administration Carvedilol 6.25 mg 10/21/21 21:00 10/22/21 08:02 Carvedilol 6.25 Mg Tablet PO 10/21/22 20:59 6.25 mg BID [facility] Administration Docusate Sodium 100 mg 10/21/21 17:51 Docusate 100 Mg Capsule PO 10/21/22 17:50 BID PRN Constipation Docusate Sodium 283 mg 10/21/21 17:51 Docusate Enema 283 Mg/5 Ml Enema VT 10/21/22 17:50 DAILY PRN Constipation Insulin Aspart 0 units 10/21/21 17:00 10/22/21 12:45 Insulin Aspart 300 Units/3 Ml Insuln.Pen SUBCUT 10/21/22 16:59 2 units TID.WM.[facility] Administration Protocol Insulin Aspart 0 units 10/21/21 17:00 10/22/21 12:46 Insulin Aspart 300 Units/3 Ml Insuln.Pen SUBCUT 10/21/22 16:59 2 units TID.WITH.MEALS.[facility] Administration Protocol Insulin Detemir 40 units 10/21/21 22:00 10/21/21 22:02 Insulin Detemir 300 Units/3 Ml Insuln.Pen SUBCUT 10/21/22 21:59 40 [facility] Administration Lactulose 30 gm 10/21/21 17:51 Lactulose 20 Gm/30 Ml Udc PO 10/21/22 17:50 DAILY PRN Constipation Losartan Potassium 25 mg 10/22/21 09:00 10/22/21 08:05 Losartan 25 Mg Tablet PO 10/22/22 08:59 25 mg QAM [facility] Administration Magnesium Oxide 400 mg 10/22/21 09:00 10/22/21 08:05 Magnesium Oxide 400 Mg Tablet PO 10/22/22 08:59 400 mg QAM [facility] Administration Multivitamins 1 tab 10/22/21 09:00 10/22/21 08:05 Multivitamin 1 Tab Tablet PO 10/22/22 08:59 1 tab QAM [facility] Administration Nitroglycerin 0.4 mg 10/21/21 15:50 [...] 79 12 124/66 98 Room Air 10/22/21 14:26 10/22/21 14:26 10/22/21 14:26 10/22/21 14:26 10/22/21 14:26 10/22/21 14:10/22/21 04:14 Narrative: CONST- alert, in chair, [...] % (Auto) 70.1, Lymph % (Auto) 10.0, [place] % (Auto) 14.8, Eos % (Auto) 4.5, Baso % (Auto) 0.6, Neut # (Auto) 4.6, Lymph # (Auto) 0.7 L, [place] # (Auto) 1.0 H, Eos # (Auto) [...] Losartan, Spironolactone 2.? GRACY on CPAP 3. S0XT-E5g 7.3, continue detemir, SSI 4. CKD 3?trend labs Documented By: ABDIRASHID Olmedo 2 1618 Signed By: <Electronically signed by ABDIRASHID Matias> 10/22/21 1658 <Electronically signed by Bronwyn Alegre MD> 10/23/21 0704 [facility] Work Phone: 1(683) 283-429807-22-2022 Progress note Author Rodriguez Loera [facility] October 21, 2021 8:37am Note Date/Time October 20, 2021 11:0 8am [facility] [address] [place] [address] Hospitalist Progress Note Signed Patient: Anai Goodman MR#: [id number] : 1955 Acct:[id number] Age/Sex: 66 / M Adm Date: 2 Loc: 4 Room: [address] [place] [address] Type : ADM IN Attending Dr: Reddy [...] Lactated Ringers IV 10/18/22 07:29 Not Given .[id number] [facility] Insulin Aspart 0 units 10/18/21 08:00 10/20/21 09:47 Insulin Aspart 300 Units/3 Ml Insuln.Pen SUBCUT 10/18/22 07:59 2 units TID.WM.[facility] Administration Protocol Insulin Aspart 0 units 10/18/21 17:00 10/20/21 09:48 Insulin Aspart 300 Units/3 Ml Insuln.Pen SUBCUT 10/18/22 16:59 3 units TID.WM.[facility] Administration Insulin Detemir 40 units 10/18/21 22:00 [...] 2 1108 Signed By: <Electronically signed by ABDIRASHID Matias> 10/20/21 1342 <Electronically signed by Rodriguez Loera MD> 10/21/21 0837 [facility] Work Phone: 1(654) 749-906307-21-2022 Progress note Author Rodriguez Loera [facility] October 20, 2021 8:45am Note Date/Time October 19, 2021 11:2 8am [facility] [address] [place] [address] Hospitalist Progress Note Signed Patient: Anai Goodman MR#: [id number] : 1955 Acct:[id number] Age/Sex: 66 / M Adm Date: 2 Loc: 4N Room: [address] [place] [address] Type : ADM IN Attending Dr: Reddy [...] Lactated Ringers IV 10/18/22 07:29 75 mls/hr .[id number] CB Administration Insulin Aspart 0 units 10/18/21 08:00 10/19/21 10:06 Insulin Aspart 300 Units/3 Ml Insuln.Pen SUBCUT 10/18/22 07:59 3 units TID.WM.[facility] Administration Protocol Insulin Aspart [...] 2 1128 Signed By: <Electronically signed by ANP-SAUMYA Matias> 10/19/21 1440 <Electronically signed by Rodriguez Loera MD> 10/20/21 0845 [facility] Work Phone: 1(895) 133-405907-20-2022 Progress note Author Reddy Brandt [facility] October 19, 2021 12:11pm Note Date/Time October 19, 2021 12:1 1pm [facility] [address] [place] [address] Orthopedic Progress Note Signed Patient: Anai Goodman MR#: [id number] : 1955 Acct:[id number] Age/Sex: 66 / M Adm Date: 2 Loc: 4N Room: 8D2441-1 Type : ADM IN Attending Dr: Reddy [...] signed by Reddy Brandt DO> 10/19/21 1211 [facility] Work Phone: 1(694) 487-758307-20-2022 Consult note Author Stewart Lucio [facility] October 19, 2021 1:42am Note Date/Time October 19, 2021 1:11 am [facility] [address] [place] [address] Hospitalist Consult Note Signed Patient: Anai Goodman MR#: [id number] : 1955 Acct:[id number] Age/Sex: 66 / M Adm Date: 2 Loc: Room: [address] [place] [address] Type : ADM IN Attending Dr: Reddy Brandt DO Copies to: MD Deon Caban,DO Bre Huerta, INTERIOR DESIGN COORDINATOR~ HPI DATE OF CONSULTATION: 10/19/21 REQUESTING PROVIDER: [...] negative unless noted in the HPI below [facility] Attestation Statement: The following information was validated [...] Lactated Ringers IV 10/18/22 07:29 75 mls/hr .[id number] CB Administration Cefazolin Sodium 1 gm in [...] Ml Insuln.Pen SUBCUT 10/18/22 07:59 6 units TID.[facility] Administration Protocol Insulin Aspart 0 units 10/18/21 17:00 10/18/21 23:37 Insulin Aspart 300 Units/3 Ml Insuln.Pen SUBCUT 10/18/22 16:59 Not Given TID.[facility] Insulin Detemir 40 units 10/18/21 22:00 10/18/21 21:39 Insulin Detemir 300 Units/3 Ml Insuln.Pen SUBCUT 10/18/22 21:59 40 units QHS CB Administration Losartan Potassium 25 mg 10/19/21 09:00 Losartan 25 Mg Tablet PO 10/19/22 08:59 QAM [facility] Magnesium Oxide 400 mg 10/19/21 09:00 Magnesium Oxide 400 Mg Tablet PO 10/19/22 08:59 QAM [facility] Multivitamins 1 tab 10/19/21 09:00 Multivitamin 1 Tab Tablet PO 10/19/22 08:59 QAM [facility] Nitroglycerin 0.4 mg 10/18/21 15:44 Nitroglycerin [...] 60 Puff Inhaler INHALATION 10/19/22 08:59 BID CB Sodium Chloride 0 ml 10/18/21 14:00 10/18/21 [...] signed by Stewart Lucio MD> 10/19/21 0142 [facility] Work Phone: 1(222) 172-481807-13-2022 Evaluation note* Encounter Date Diagnosis Assessment Notes [...] poor healing. I have advised against the long term care social worker use of narcotic pain medication. I have [...] osteomyelitis of right tibia (ICD-10 - M86.661) [facility] Other 07-07-2022 Evaluation note* Encounter Date Diagnosis Assessment Notes Treatment Notes Treatment Clinical Notes Sep, Other chronic osteomyelitis of right tibia (ICD-10 - M86.661) [facility] Other 07-07-2022 Evaluation note* Encounter Date Diagnosis [...] place his pacemaker into MRI mode. Anyway parts identification technician was very helpful and she is [...] worse they are to call me WALT. [facility] Other 06-09-2022 Evaluation note* Encounter Date Diagnosis [...] to a suppressive dose at that time [facility] Other 11-23-2021 NoteChief Complaint Basal cell carcinoma [...] 03/03/2021 PATIENT : 1955 LOCATION OF PROCEDURE: [facility] SURGEON: Chirag Gutierrez DO INFORMED CONSENT: Obtained by and on file at [facility] CC: [Basal cell carcinoma left ear [...] 01/11/2021 PATIENT : 1955 LOCATION OF PROCEDURE: [facility], SURGEON: Chirag Gutierrez DO INFORMED CONSENT: Obtained by and on file at [facility] CC: Basal cell carcinoma left ear [...] Dr. Freed. Previous pathology by physician in [place] about 1 year ago. PMHx of multiple [...] This patient presented to the [facility] with a chief concern of skin [...] Basal cell carcinoma Outside pathology report from [facility] was received with accession number [id number]. SP Specimen A Skin of left ear, [...] D: Received fresh for frozen section labeled ?-12 margin of left ear' is an elongated [...] Medical CenterComment on above:Performed By: #### SPR ####[facility] (DEFAULT)[address] [place], [place] [address]Ljpwzlqes summary Author Ghanshyam Kaye [facility] October 28, 2021 10:30am Note Date/Time October 27, 2021 1:34 pm [facility] [address] [place] [address] Discharge Summary Signed Patient: Anai Goodman MR#: [id number] : 1955 Acct:[id number] Age/Sex: 66 / M Adm Date: 2 Loc: Room: [address] [place] [address]: Ghanshyam Kaye MD Copies to: [...] 10/27/21 13:34> Hospital Course Hospital course: Mr. Godoman is a 66 year old male who was [facility] s/p planned right BKA. His past medical history significant for DM type II, CAD, [place], s/p pacemaker/defibrillator insertion, CKD, osteomyelitis of the [...] Patient's was on Xarelto while inpatient. Per [facility] pharmacy , insurance co-pay would be over [...] year old male who was admitted to [facility] s/p planned right BKA. His past medical history significant for DM type II, CAD, [place], s/p pacemaker/defibrillator insertion, CKD, osteomyelitis of the [...] Patient's was on Xarelto while inpatient. Per [facility] pharmacy , insurance co-pay would be over$120 [...] home prior. Your Home Health agency is [email or web address] ( ). They will usually contact you [...] them prior to your appointment. Instructions: Amputation, Pafdc-fmo-Gihp (DC) Stand Alone Forms: Insulin Corrective Scale [...] signed by Ghanshyam Kaye MD> 10/28/21 1030 [facility] Work Phone: Evaluation noteNo InformationNort [place] ([employer]) Other Evaluation note* Diagnosis Onset Date Resolution Status Below knee amputation acute Type 2 diabetes mellitus acu te [facility] Work Phone: evaluation note* Diagnosis Onset Date Resolution Status Below [...] wound of skin acute Wound dehiscence acute [facility] Work Phone: evaluation note* Diagnosis Onset Date Resolution Status Below knee amputation acute Dehiscence of wound of skin acute Wound dehiscence acute [facility] Work Phone: Evaluation noteNo assessment information available [facility] Work Phone: [email or web address] note* Diagnosis Preop cardiovascular exam- Primary Pre-operative cardiovascular examination Coronary artery disease involving [place] coronary artery of [place] heart without angina pectoris Ischemic cardiomyopathy Other specified forms of chronic ischemic heart disease Chronic systolic congestive heart failure (CMS-HCC) Apical mural thrombus Essential (primary) hypertension Unspecified essential hypertension Cardiac defibrillator in place- [employer]tronic Automatic implantable cardiac defibrillator in situ Mixed hyperlipidemia [facility] Diagnosis Type 2 diabetes mellitus with diabetic neuropathic arthropathy, with long-term current use of insulin (CMS-HCC) [facility] N[facility]ative - Reported* Type Description Date Medical History DM1 Medical History HTN Medical History HYPERLIPEDEMIA Surgical History LEFT FOOT SURGERY WITH REMOVAL OF ALL FIVE TOES Surgical History heart cath with 5 stents placem ent Hospitalization History MRSA 2011 Hospitalization History [employer] Other [facility] general Narrative - Reported* Type Description Date Medical History DM1 Medical History HTN Medical History HYPERLIPEDEMIA Surgical History LEFT FOOT SURGERY WITH REMOVAL OF ALL FIVE TOES Surgical History heart cath with 5 stents placem ent Surgical History right transtibial be low-knee amputation, right fibular osteotomy 10/17/21 Hospitalization History MRSA 2011 Hospitalization History [employer] Other [employer] general Narrative - Reported* Type Description Date [...] Heart Hospitalization History see above surg. hx. [facility] Other InstructionsNot on filedocumented in this encounter [employer] SystemInstructionsNot on filedocumented in this encounter [email or web address] Summary Purpose Family History No Family History [...] wound post op - Sent by Dr Barbosa Osteomylidarrell Right Tibia rt leg blleding recent surgery [...] wound post op - Sent by Dr Barbosa Ostegabylidarrell Right Tibia rt leg blleding recent surgery [...] Chief Complaint Community mobility d riving test Chief Complaint Unknown Reason for Referral Reason abrasion of skin Diagnosis 1 Other chronic osteom yelitis of right tibia (M86.661) Referral Organization [facility] Referring Provider First Name Reddy [...] section and content) DATE CREATED AUTHOR 05/12/2020 [facility] DATE CREATED AUTHOR AUTHOR'S ORGANIZ ATION 05/26/2021 [facility] DATE CREATED AUTHOR AUTHOR'S ORGANIZ ATION 08/23/2021 [facility] DATE CREATED AUTHOR AUTHOR'S ORGANIZ ATION 11/02/2021 [facility] DATE CREATED AUTHOR AUTHOR'S ORGANIZ ATION 03/23/2023 [facility] EPIC DATE CREATED AUTHOR AUTHOR'S ORGANIZ ATION 04/08/[address] [facility] DATE CREATED AUTHOR AUTHOR'S ORGANIZ ATION 04/15/2023 [facility] DATE CREATED AUTHOR AUTHOR'S ORGANIZ ATION 04/24/[address] [facility] REASON FOR VISIT (unrecogniz ed section and content) Reason Comments Pre-op Exam EST PT PRE OP DR MARIXA Brown SURG DR LEE Reason Onset Date Comments Med Refill 04/13/2023 Care Teams (unrecognized sec tion and content) Team Status: Inactive Member Role Status Dates Deon Braxton , DO Primary Care Provider Active Reddy Brandt , DO Attending Provider Active Team Status: Inactive Member Role Status Dates Deon Braxton , DO Primary Care Provider Active Reddy Brandt , DO Admit Provider, Attending Provide r Active Jessy Hope , NBA Other Provider Active Marci Ruiz , NBA Other Provider Active Aliza Sorensen , NBA Other Provider Active Tatiana Jasso , NBA Other Provider Active Radha Frederick RN Other Provider Active Jana Parmar , NBA Other Provider Active Fredi Mendez MD Other Provider Active Drea Galvin APRN Other Provider Active Julia Segura , Other Provider Active Armando Hanks MD Other [...] MD Other Provider Active Mai Britton , ISI-C Other Provider Active Christiano Evans MD Other Provider Active Isidro Antunez MD Other Provider Active Rosalind Coburn MD Other Provider Active Bill Osei MD Other Provider Active Lizbeth Mcbride , DO Other Provider Active Fabio Sanchez MD Other Provider Active Kwesi Muhammad , DO Other Provider Active Bre Obika , INTERIOR DESIGN COORDINATOR Other Provider Active Bin Carrera , DO Other Provider Active Patti Taylor MD Other Provider Active Kassandra Munoz , RN Other Provider Active Team Status: Inactive Member Role Status Dates Deon Braxton , DO Primary Care Provider Active Reddy Brandt , DO Referring Provider Active Darien Bailey , DRY PRESS OPERATOR HELPER-C Attending Provider Activ e Team Status: Active Member Role Status Dates Deon Braxton , DO Primary Care Provider Active Team Status: Inactive Member Role Status Dates Deon Braxton , DO Primary Care Provider Active Christiano Palacios PA-C Emergency Provider Active Team Status: Inactive Member Role Status Dates Deon Ramosanival , DO Primary Care Provider Active Ghanshyam Kaye MD Admit Provider, Attending Provider A ctive Jessy Hope , NBA Other Provider Active Marci Ruiz , NBA Other Provider Active Aliza Sorensen , NBA Other Provider Active Tatiana Jasso , NBA Other Provider Active Radha Frederick RN Other Provider Active Jana Parmar , NBA Other Provider Active Bronwyn Alegre MD Other Provider Active Fredi Mendez MD Other Provider Active Drea Galvin , INTERIOR DESIGN COORDINATOR Other Provider Active Julia Segura , DO [...] MD Other Provider Active Mai Britton , DRY PRESS OPERATOR HELPER-C Other Provider Active Christiano Evans MD Other Provider Active Isidro Antunez MD Other Provider Active Rosalind Coburn MD Other Provider Active Bill Osei MD Other Provider Active Lizbeth Mcbride , DO Other Provider Active Fabio Sanchez MD Other Provider Active Kwesi Muhammad , DO Other Provider Active Bre Patel , INTERIOR DESIGN COORDINATOR Other Provider Active Bin Carrera , DO [...] DO Admit Provider, Attending Provide r Active Director Of Finance Relationship Specialty Start Date End Date Deon Braxton, [address] [place] [address] PCP - General Internal Medicine 01/22/17 Director Of Finance Relationship Specialty Start Date End Date Deon Braxton DO [address] [place] [address] PCP - General Internal Medicine 01/22/17 Team Status: Inactive Member Role Status Dates Deon Braxton , Primary Care Provider Active Sta rt: April 19, 2023 End: April 19, 2023 Salina Lee DPM MS Attending Provider Active Start: April 19, 2023 End: April 19, 2023 Goals (unrecognized section and content) Goals may [...] BE BASED ON THE PRIMARY CLINICAL RECORDS. Activity [facility]. provides no warranty or guarantee of the accuracy or completeness of information in this document.
== END 2023-05-01 09:32 | disposition home or self-care (01) ==
LOC: WC 09:31
PROVIDERS: PCP Internal Medicine; Visit Provider Podiatrist Foot & Ankle Surgery
DX: L89.523 Pressure ulcer of left ankle, stage 3 (principal)
CPT/HCPCS: 29445

== ENCOUNTER 2023-05-08 10:56 | Outpatient (OUT) | payer MEDICARE, SELFPAY ==
--- OUTSIDE RECORDS SUMMARY | 2023-05-08 11:18 | XMS_ITS | CCD ---
Author Name Unknown Address [address] [place] [address] Organization [facility] Care Team Providers Care Ip Architect Name Role Phone DEON BRAXTON Primary Care [...] Care Provider DO Reddy Brandt Attending Provider [phone] DO Reddy Brandt Referring Provider CRISTINA Bailey Attending Provider DO Reddy Brandt Admit Provider [phone] NBA Hope Other Provider Unavailable NBA Ruiz Other Provider Unavailable NBA Sorensen Other Provider Unavailable NBA Jasso Other Provider Unavailable NBA Frederick Other Provider Unavailable NBA Parmar Other Provider Unavailable MD Fredi Mendez Other Provider KRUNAL Galvin Other Provider DO Julia Segura Other Provider [phone] MD Armando Hanks Other Provider [phone] DO Golden Whatley Other Provider MD Adi Feng Other Provider MD Letty Turpin Other Provider [phone] Polly, ANP-BC Faviola Other Provider MD Brett Muñoz Other Provider MD Dennis Larson Other Provider MD Rodriguez Loera Other Provider MD Cuauhtemoc Ramos Other Provider MD Darien Maria Other Provider MD Stewart Lucio Other Provider MD Sonido Murillo Other Provider Reba, AIR CARRIER MAINTENANCE INSPECTOR-C Mai Vega Other Provider MD Christiano Evans Other Provider MD Isidro Antunez Other Provider MD Rosalind Coburn Other Provider MD Bill Osei Other Provider DO Lizbeth Mcbride Other Provider Al MD Fabio Fernandez Other Provider DO Kwesi Muhammad Other Provider KRUNAL Patel Other Provider DO Bin Carrera Other Provider [phone] MD Patti Taylor Other Provider NBA Munoz Other Provider Unavailable BALJEET LEONG Admitting UnavailBALJEET Moss Attending UnavailDR DEON Au Primary Care Unavailable DR DEON BRAXTON Primary Care Unavailable SALINA LEE Consulting Unavailable SALINA LEE Attending Unavailable SALINA LEE Admitting Unavailable WOODYENMANUEL CORDOVA Consulting Unavailable ENMANUEL MCKAY Attending Unavailable ENMANUEL MCKAY Admitting Unavailable YUDONNA, DR CHAVARRIA Primary Care Unavailable BALJEET LEONG Consulting Unavailabl e CLOUNAERTYBALJEET Attending Unavailabl e CLOUGHERTYBALJEET Admitting Unavailabl [...] Care Unavailable HIGHLARIS, SALINA Walker Consulting Unavailable SALINA LEE Admitting Unavailable JESUS, SALINA Walker Attending Unavailable IRAIS, DR CHAVRARIA Primary Care Unavailable HIGHLSALINA HURST Admitting Unavailable HIGHLARIS, SALINA Walker Attending Unavailable YUKEEGANS, DR CHAVARRIA Primary Care Unavailable HIGHLSALINA HURST Admitting Unavailable BALJEET LEONG Admitting Unavailabl e CLOBALJEET SIERRA Attending Unavailabl e JAZIEL, DR ANAI Edmond Consulting Unavailable IRAIS, DR CHAVARRIA Primary Care Unavailable BALJEET LEONG Consulting Unavailabl e YUKEEGANS, DR CHAVARRIA Primary Care Unavailable JESUS, SALINA Walker Attending Unavailable JAZIEL, DR ANAI Edmond Consulting Unavailable SALINA LEE Admitting Unavailable SALINA LEE Consulting Unavailable BALJEET LEONG Attending Unavailabl e BALJEET LEONG Admitting Unavailabl e WEST, DR ANAI Edmond Consulting Unavailable IRAIS, DR CHAVARRIA Primary Care Unavailable BALJEET LEONG O Consulting Unavailabl e CLOUGHERTYBALJEET Admitting Unavailabl e CLOBALJEET SIERRA O Consulting Unavailabl e CLOBALJEET SIERRA Attending Unavailabl e YUDONNA, DR CHAVARRIA Primary Care Unavailable BALJEET LEONG Attending Unavailabl e CLOUGHERTYBALJEET O Admitting Unavailabl e YUHAS, DR CHAVARRIA Primary Care Unavailable BALJEET LEONG Attending Unavailabl e YUKEEGANS, DR CHAVARRIA Primary Care Unavailable BALJEET LEONG O Admitting Unavailabl e YUHAS, DR CHAVARRIA Primary Care Unavailable HIGHLANDER, SALINA Walker Attending Unavailable HIGHLANDERSALINA Admitting Unavailable YUHAS, DR CHAVARRIA Primary Care Unavailable [facility] Walker Attending Unavailable HIGHLSALINA HURST Admitting Unavailable CLOUNAERTYBALJEET Attending Unavailabl e CLOUGHERTYBALJEET O Admitting Unavailabl e YUKEEGANS, DR CHAVARRIA Primary Care Unavailable CLOUGHERTY, BALJEET O Admitting Unavailabl e CLOUGHERTY, BALJEET O Attending Unavailabl e YUKEEGANS, DR CHAVARRIA Primary Care Unavailable CLOUGHERTY, BALJEET O Admitting Unavailabl e CLOUGHERTY, BALJEET O Attending Unavailabl e YUDONNA, DR CHAVARRIA Primary Care Unavailable YUDONNA, DR CHAVARRIA Primary Care Unavailable [facility], SALINA Walker Attending Unavailable [facility], SALINA Walker Admitting Unavailable HIGHLANDER, SALINA Walker Attending Unavailable STERLING, DR ANAI Edmond Consulting Unavailable [facility], SALINA Walker Admitting Unavailable YUHAS, DR CHAVARRIA Primary Care Unavailable [facility] Consulting Unavailable [facility], SALINA Walker Attending Unavailable [facility], SALINA Walker Admitting Unavailable YUHAS, DR CHAVARRIA Primary Care Unavailable ZIER, DR ARLEN Patel Consulting Unavailable [facility] Consulting Unavailable [facility] Attending Unavailable HIGHLANDERSALINA Admitting Unavailable YUHAS, DR CHAVARRIA Primary Care Unavailable [facility], SALINA Walker Attending Unavailable [facility] Admitting Unavailable YUHAS, DR CHAVARRIA Primary Care Unavailable [facility], SALINA Walker Attending Unavailable YUHAS, DR CHAVARRIA Primary Care Unavailable HIGHLANDER, SALINA Walker Admitting Unavailable HIGHLANDER, SALINA Walker Attending Unavailable YUHAS, DR CHAVARRIA Primary Care Unavailable [facility], SALINA Walker Consulting Unavailable [facility] Admitting Unavailable CLOUNAERTY, BALJEET O Attending Unavailabl e CLOUNAERTYBALJEET Admitting Unavailabl e YUDONNA, DR CHAVARRIA Primary Care Unavailable CLOUNAERTY, BALJEET O Admitting Unavailabl e CLOUGHERTY, BALJEET O Attending Unavailabl e YUDONNA, DR CHAVARRIA Primary Care Unavailable CLOUGHERTY, BALJEET O Admitting Unavailabl e CLOUGHERTY, BALJEET O Attending Unavailabl e YUKEEGANS, DR CHAVARRIA Primary Care Unavailable YUHAS, DR CHAVARRIA Primary Care Unavailable HIGHLANDERSALINA Attending Unavailable SALINA LEE Admitting Unavailable CLOUGHERTY, BALJEET O Admitting Unavailabl e CLOUGHERTY, BALJEET O Attending Unavailabl e YUKEEGANS, DR CHAVARRIA Primary Care Unavailable CLOUGHERTY, DELONG O Admitting Unavailabl e CLOUGHERTY, DELONG O Attending Unavailabl e WEST, DR ANAI Edmond Consulting Unavailable YUHAS, DR CHAVARRIA Primary Care Unavailable CLOUNAERTYBALJEET Consulting Unavailabl e HIGHLANDER, SALINA Walker Attending Unavailable HIGHLARIS, SALINA Walker Admitting Unavailable YUHAS, DR CHAVARRIA Primary Care Unavailable CLOUGHERTY, BALJEET Payan Attending Unavailabl e CLOUGHERTY, BALJEET O Admitting Unavailabl e YUHAS, DR CHAVARRIA Primary Care Unavailable HIGHLANDER, SALINA Walker Attending Unavailable YUHAS, DR CHAVARRIA Primary Care Unavailable HIGHLANDER, SALINA Walker Consulting Unavailable HIGHLANDERSALINA Admitting Unavailable MARINOTERRY Osman Consulting Unavailable YUHAS, DR CHAVARRIA Primary Care Unavailable HIGHLANDER, SALINA Walker Attending Unavailable HIGHLARIS, SALINA Walker Admitting Unavailable YUHAS, DR CHAVARRIA Primary Care Unavailable CLOUNAERTYBALJEET Attending Unavailabl e CLOUGHERTY, BALJEET O Admitting Unavailabl e WEST, DR ANAI Edmond Consulting Unavailable CLOUNAERTY, BALJEET O Consulting Unavailabl e CLOUGHERTY, BALJEET Payan Attending Unavailabl e CLOUGHERTY, BALJEET O Admitting Unavailabl e ZIEBER, DR ARLEN Patel Consulting Unavailable YUHAS, DR CHAVARRIA Primary Care Unavailable CLOUGHERTYBALJEET O Consulting Unavailabl e HIGHLANDER, SALINA Walker [...] Care Unavailable HIGHLANDER, SALINA Walker Attending Unavailable SALINA LEE Admitting Unavailable YUHAS, [...] Primary Care Unavailable KIRK, DONALD Attending Unavailable KIRK, DONALD Admitting Unavailable YUHAS, DR CHAVARRIA Primary Care Unavailable DONALD BRADLEY Consulting Unavailable KLYM, CHARLES Consulting Unavailable SHAIKH CAMPUZANO H Attending Unavailable SHAIKH CAMPUZANO H Admitting Unavailable YUHAS, DR CHAVARRIA Primary Care Unavailable BAUM, DR ALBER Rich Consulting Unavailable WEST, DR ANAI Edmond Consulting Unavailable ZIEBANTONIO, DR ARLEN Patel Consulting Unavailable SANTOS MCMAHON Consulting Unavailable SALINA LEE Consulting Unavailable AGUBOSIM, MICHELA Consulting Unavailable BIANCA, JORDI Consulting Unavailable SUZANNE, SHERINE Consulting Unavailable JUSTEN, DIAZ H Consulting Unavailable SALINA LEE Procedure Practitioner Unava ericable MARIA E BRASWELL Consulting Unavailable WOODY AMAR Consulting Unavailable YUKEEGANS, DR CHAVARRIA Primary Care Unavailable SALINA [...] Admit Provider MD Ghanshyam Kaye Attending Provider [phone] MD Bronwyn Alegre Other Provider ROHIT Palacios Emergency Provider DO César Cortes Emergency Provider DO Deon Braxton Primary Care Provider DO Reddy Brandt Attending Provider RichardsDO Chavarria Primary Care Provider [phone] DO Reddy Brandt Attending Provider DO César Cortes Emergency Provider DO Reddy Brandt Admit Provider Ghanshyam Kaye Unavailable DO Deon Braxton Primary Care Provider DO Reddy Brandt Attending Provider Dung Serna Unavailable YOVANNY CALHOUN Attending Unavailable YOVANNY CALHOUN Referring Unavailable YOVANNY CALHOUN Attending Unavailable YOVANNY CALHOUN Referring Unavailable DEON BRAXTON Primary Care Unavailable Deon Braxton DO Primary Care Provider [phone] TERRY LOCK Attending Unavailable DEON BRAXTON Referring Unavailable DEON BRAXTON Primary Care Unavailable DO Deon Braxton Primary Care Provider ERIKA Lee Attending Provider Deon Braxton Primary Care Unavailable Salina Lee Admitting Unavailable Salina Lee Attending Unavailable Deno Braxton Primary Care Unavailable Reddy Brandt Admitting Unavailable Reddy Brandt Attending Unavailable Dung Serna Admitting Unavailable Dung Serna Attending Unavailable Deon Braxton Primary Care Unavailable Allergies Allergy Classification Reported Allergen(s) Allergy Type Date of Onset Reaction(s) Facility (19 sources) Chlorpheniramine; Translations: [chlorpheniramine] Drug Allergy 07-02-19 21 Hives [facility]ository (15 sources) Dextromethorphan; Translations: [dextromethorphan] Drug Allergy 10-19-19 22 Unknown Reaction [facility] Repository (20 sources) Doxycycline; Translations: [doxycycline] Drug Allergy 04-02-19 21 FELT LIKE A HEART ATTACK, Chest Pain [facility] Repository (18 sources) guaiFENesin; Translations: [guaiFENesin] Drug Allergy 04-14-19 16 hives [facility] Repository (18 sources) levoFLOXacin; Translations: [levoFLOXacin] Drug Allergy 04-02-19 21 Chest Pain [facility] Repository (19 sources) Phenylephrine; Translations: [phenylephrine] Drug Allergy 07-02-19 21 Unknown Reaction [facility] Repository (1 source) Tussionex [employer]; Translations: [Tussionex [employer]] Propensity to adverse reactions to drug (disorder) [facility] Repository (20 sources) Tussin Drug allergy Fenergo Kuailex[facility] Other (16 sources) HYDROcodone; Translations: [HYDROCODONE] Drug Allergy 10-19-19 [facility] (4 sources) Chlorpheniramine / HYDROcodone; Translations: [TUSSIONEX] Drug Allergy [facility] Repository (4 sources) Dextromethorphan; Translations: [DEXTROMETHORPHAN HBR] Drug Allergy 10-18-19 Itching [facility] Repository (4 sources) FBZEIIPSF-JS-BIROSE INOPHEN; Translations: [GVOLFVQFB-YO-CVZXR MINOPHEN] Propensity to adverse reactions to drug (disorder) 02-04-20 [facility] Repository (2 sources) Chlorpheniramine / HYDROcodone [facility] Current Medications Medication [...] as needed Orally every 6 hrs Active [id number] 200 actuat albuterol 0.09 mg/actuat metered dose [...] mL nebulizer Indications: COPD with acute exacerbation ([facility]) USE 3 ML VIA NEBULIZER FOUR TIMES [...] take 1 tablet by mouth at mealti ri Carvedilol 12.5 MG 1 tablet with food [...] tablet Indications: Chronic systolic congestive heart failure ([facility]) Take 1 tablet (10 mg total) by [...] arthropathy, with long-term current use of insulin ([facility]) CHANGE EVERY 2 WEEKS DIRECTED 6 kit [...] arthropathy, with long-term current use of insulin ([facility]) Inject 15 Units under the skin in [...] myocardial infarction; 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] Onset: 11-23-2017 [...] Long-term current use of insulin; Translations: [director banking (current) use of insulin] Episodic Other and [...] 01-18-2021 Episodic Other aftercare (1 source) director banking (current) use of aspirin; Translations: [INTERMEDIATE CURRENT USE OF ASPIRIN] Onset: 03-02-2021 Episodic Other aftercare (1 source) longterm (current) use of insulin; Translations: [INTERMEDIATE CURRENT USE OF INSULIN] Onset: 03-02-2021 Episodic Other aftercare (1 source) Other imaging scheduler (current) drug therapy; Translations: [[employer] MANAGER CURRENT DRUG THERAPY] Onset: 03-02-2021 Episodic Other [...] Test Name Value Interpretation Reference Range Facility [facility] 04-19-2023 L Specimen: [id number] Received: 04/20/23 Status: SASHA León Num: [id number] Spec Type: Surgical Subm Dr: Salina Lee DPM, MS Tissues: A Bone Fragments - Other than Path Fracture (LT LATERAL MALLEOLUS) Procedures: HE, Gross/Micro L3, Decalcification Age/ Patient Sex Location Account Attending Physician Anai Goodman 67/M LABELL [id number] Salina Lee DPM, MS SPEC NUM: [id number] RECD: 04/20/23 STATUS: SASHA LEÓN NUM: [id number] KARIME: 04/19/[address]: RYLAND EngM, MS ENTERED: 04/20/23-[address] [facility] [address]: Pernell,Lab SPEC TYPE: Surgical DEPT: [...] in one cassette labeled A1. CPT Codes 79644, 62097 -------- -------- Specimen: [id number] Received: 04/20/23 Status: SASHA León Num: [id number] Spec Type: Surgical Subm Dr: Salina Lee DPM, MS Tissues: A Bone Fragments - Other than Path Fracture (LT LATERAL MALLEOLUS) Procedures: Octavio TERRY/Micro L3, Decalcification -------- Patient: Anai Goodman [id number] (Continued) -------- Signed (signature on file) Aniket Krishnamurthy MD 04/23/232202 [facility] POCT EKGon 04-12-2023 [facility] MR ANKLE LT W WO CONTon - [...] Bennett MD on 04/05/2023 8:50 AM Normal [facility] XR cervical spine 2Von 10-05 XR cervical spine 2V [facility] [place] [address] XRay Report Signed Patient: Anai Goodman MR#: [id number] : 1955 Acct:[id number] Age/Sex: 66 / M ADM Date: 10/05/22 Loc: XD Room: Type: [facility] Attending Dr: Dung Serna MD Copies [...] Jose Sanabria M.D.10/05/2022 12:36 PM Dictation Location: [place] [address] Transcribed By: [facility] 10/05/22 1236 Dictated By: Jose Sanabria DO 10/05/22 1233 Signed By: 10/05/22 1236 Normal [facility] Basophils Auto (Bld) [#/Vol] Ordered By: Spenser Elaine on 11-29-2021 Basophils (Bld) [#/Vol] 0.0 10*3/uL 0.0-0.2 [facility] Basophils/100 WBC Auto (Bld) Ordered By: Spenser Elaine on 11-29-2021 Basophils/100 WBC (Bld) 0.5 % . F [facility] Blood hemoglobin measurement (mass/volume)Ordered By: Spenser Elaine on 11-29-2021 Hemoglobin (Bld) [Mass/Vol] 12.6 g/dL 13.0-17.0 [facility] Blood leukocytes automated c ount (number/volume)Ordered By: Spenser Elaine on 11-29-2021 WBC (Bld) [#/Vol] 6.8 10*3/uL 4.5-11.0 [facility] COVID CepheidOrdered By: Junior sotelo Sebastian on 11-29-2021 SARS-CoV-2 (COVID-19) Ab IA Ql Negative Negative [facility] Comment on above: This is a duplicate CepElectron Databaseid Xpert Xpress CoV-2/Flu/RSV Plus RNA by RT-PCR result to be used for statistical tracking purpose only. SARS-CoV-2 (COVID-19) RNA MEREDITH+probe Ql (Unsp spec) [facility] Creatinine and Glomerular fi ltration rate.predicted panel (S/P/Bld)Ordered By: Spenser Elaine on 11-29-2021 Creatinine [Mass/Vol] 1.38 mg/dL 0.64-1.27 [facility] Eosinophils Auto (Bld) [#/Vo l]Ordered By: Spenser Elaine on 11-29-2021 Eosinophils (Bld) [#/Vol] 0.5 10*3/uL 0.0-0.45 [facility] Eosinophils/100 WBC Auto (Bl d)Ordered By: Spenser Elaine on 11-29-2021 Eosinophils/100 WBC (Bld) 7.5 % . [facility] Erythrocyte distribution wid th Auto (RBC) [Ratio]Ordered By: Spenser Elaine on 11-29-2021 Erythrocyte distribution width (RBC) [Ratio] 15.7 % 12.0-14.8 [facility] Estimated glomerular filtrat ion rate (GFR) non- AmericanOrdered By: Spenser Elaine on 11-29-2021 GFR/1.73 sq M.predicted among non-blacks MDRD (S/P/Bld) [Vol rate/Area] 52 mL/Min [facility] Glucose Glucometer (BldC) [M ass/Vol]Ordered By: Reddy Brandt on 11-29-2021 Glucose [Mass/Vol] 141 mg/dL [facility] Comment on above: Random Glucose Refer ence Range is dependent on time and content of last meal. Glucose of more than 200 mg/dL in a nonstressed, ambulatory subject supports the diagnosis of Diabetes Mellitus. Hematocrit Auto (Bld) [Volum e fraction]Ordered By: Spenser Elaine on 11-29-2021 Hematocrit (Bld) [Volume fraction] 38.3 % 38.8-50.0 [facility] Laboratory - Hematology and Cell countsOrdered By: Spenser Elaine on 11-29-2021 Nucleated RBC/100 WBC (Bld) [Ratio] 0.0 % 0-0.5 [facility] Laboratory - Microbiology an d Antimicrobial susceptibilityOrdered By: César Cortes on 11-29-2021 SARS-CoV-2 (COVID-19) RNA MEREDITH+probe Ql (Unsp spec) N/A [facility] Lymphocytes Auto (Bld) [#/Vo l]Ordered By: Spenser Elaine on 11-29-2021 Lymphocytes (Bld) [#/Vol] 0.6 10*3/uL 1.00-4.8 [facility] Lymphocytes/100 WBC Auto (Bl d)Ordered By: Spenser Elaine on 11-29-2021 Lymphocytes/100 WBC (Bld) 9.0 % . [facility] MCH Auto (RBC) [Entitic mass ]Ordered By: Spenser Elaine on 11-29-2021 MCH (RBC) [Entitic mass] 27.6 pg 27.5-35.2 [facility] MCHC Auto (RBC) [Mass/Vol]Or dered By: Spenser Elaine on 11-29-2021 MCHC (RBC) [Mass/Vol] 32.8 g/dL 32.5-35.6 [facility] MCV Auto (RBC) [Entitic vol] Ordered By: Spenser Elaine on 11-29-2021 MCV (RBC) [Entitic vol] 84.3 fL 83.5-101 F [facility] Monocytes Auto (Bld) [#/Vol] Ordered By: Spenser Elaine on 11-29-2021 Monocytes (Bld) [#/Vol] 0.7 10*3/uL 0.0-0.8 [facility] Monocytes/100 WBC Auto (Bld) Ordered By: Spenser Elaine on 11-29-2021 Monocytes/100 WBC (Bld) 10.9 % . [facility] Neutrophils Auto (Bld) [#/Vo l]Ordered By: Spenser Elaine on 11-29-2021 Neutrophils (Bld) [#/Vol] 4.9 10*3/uL 1.8-7.7 [facility] Neutrophils/100 WBC Auto (Bl d)Ordered By: Spenser Elaine on 11-29-2021 Neutrophils/100 WBC (Bld) 72.1 % . [facility] No Panel InformationOrdered By: Reddy Brandt on 11-29-2021 Bedside Glucose Comment Glu2: cleaned meter [facility] No Panel InformationOrdered By: Spenser Elanie on 11-29-2021 Estimated GFR () > 60 mL/Min [facility] Comment on above: GFR estimated refere nce range: According to KDOQI guidelines, <60 ml/min/1.73m2 is sufficient to diagnose a patient with chronic kidney disease. Pharmacy Creatinine Clearance (Chem 66.84 [facility] Platelet mean volume Auto (B ld) [Entitic vol]Ordered By: Spenser Elaine on 11-29-2021 Platelet mean volume (Bld) [Entitic vol] 9.3 fL 6.6-10.1 [facility] Platelets Auto (Bld) [#/Vol] Ordered By: Spenser Elaine on 11-29-2021 Platelets (Bld) [#/Vol] 142 10*3/uL 150-450 [facility] RBC Auto (Bld) [#/Vol]Ordere d By: Spenser Elaine on 11-29-2021 RBC (Bld) [#/Vol] 4.54 10*6/uL 3.90-5.60 [facility] Serum or plasma anion gap de terminationOrdered By: Spenser Elaine on 11-29-2021 Anion gap [Moles/Vol] 12.0 mmol/L 6.0-15.0 [facility] Serum or plasma calcium sergei urement (mass/volume)Ordered By: Spenser Elaine on 11-29-2021 Calcium [Mass/Vol] 10.0 mg/dL 8.2-10.2 [facility] Serum or plasma chloride zofia surement (moles/volume)Ordered By: Spenser Elaine on 11-29-2021 Chloride [Moles/Vol] 100 mmol/L 95-114 [facility] Serum or plasma glucose sergei urement (mass/volume)Ordered By: Spenser Elaine on 11-29-2021 Glucose [Mass/Vol] 130 mg/dL 70-100 [facility] Comment on above: ADA recommended refe [...] on 11-29-2021 Potassium [Moles/Vol] 4.0 mmol/L 3.5-5.1 [facility] Serum or plasma sodium measu rement (moles/volume)Ordered By: Spenser Elaine on 11-29-2021 Sodium [Moles/Vol] 138 mmol/L 136-146 [facility] Serum or plasma total carbon dioxide measurement (moles/volume)Ordered By: Spenser Elaine on 11-29-2021 CO2 [Moles/Vol] 30.0 mmol/L 22.0-30.0 [facility] Serum or plasma urea nitroge n measurement (mass/volume)Ordered By: Spenser Elaine on 11-29-2021 Urea nitrogen [Mass/Vol] 22 mg/dL 9-23 [facility] Glucose Glucometer (BldC) [M ass/Vol]Ordered By: Reddy Brandt on 11-03-2021 Glucose [Mass/Vol] 174 mg/dL [facility] Comment on above: Random Glucose Refer ence Range is dependent on time and content of last meal. Glucose of more than 200 mg/dL in a nonstressed, ambulatory subject supports the diagnosis of Diabetes Mellitus. No Panel InformationOrdered By: Reddy Brandt on 11-03-2021 Bedside Glucose Comment Glu2: cleaned meter [facility] COVID-19 Positive/NegativeOr dered By: Reddy Brandt on 11-02-2021 SARS-CoV-2 (COVID-19) N gene MEREDITH+probe Ql (Resp) Negative Negative [facility] Comment on above: Testing for SARS-CoV -2 by RT-PCR This test was developed and its performance characteristics determined by [employer] (BD) and validated at the [facility]. This test has not been FDA [...] developed and its performance characteristics determined by [employer] (BD) and validated at the [facility]. This test has not been FDA [...] Kaye on 10-27-2021 Glucose [Mass/Vol] 166 mg/dL [facility] Comment on above: Random Glucose Refer ence Range is dependent on time and content of last meal. Glucose of more than 200 mg/dL in a nonstressed, ambulatory subject supports the diagnosis of Diabetes Mellitus. No Panel InformationOrdered By: Ghanshyam Kaye on 10-27-2021 Bedside Glucose Comment Glu2: cleaned meter [facility] Basophils Auto (Bld) [#/Vol] Ordered By: Chante Narayan on 10-25-2021 Basophils (Bld) [#/Vol] 0.0 10*3/uL 0.0-0.2 [facility] Basophils/100 WBC Auto (Bld) Ordered By: Chante Narayan on 10-25-2021 Basophils/100 WBC (Bld) 0.3 % . F [facility] Blood hemoglobin measurement (mass/volume)Ordered By: Chante Narayan on 10-25-2021 Hemoglobin (Bld) [Mass/Vol] 11.2 g/dL 13.0-17.0 [facility] Blood leukocytes automated c ount (number/volume)Ordered By: Chante Narayan on 10-25-2021 WBC (Bld) [#/Vol] 5.7 10*3/uL 4.5-11.0 [facility] Creatinine and Glomerular fi ltration rate.predicted panel (S/P/Bld)Ordered By: Chante Narayan on 10-25-2021 Creatinine [Mass/Vol] 1.24 mg/dL 0.64-1.27 [facility] Eosinophils Auto (Bld) [#/Vo l]Ordered By: Chante Narayan on 10-25-2021 Eosinophils (Bld) [#/Vol] 0.4 10*3/uL 0.0-0.45 [facility] Eosinophils/100 WBC Auto (Bl d)Ordered By: Chante Narayan on 10-25-2021 Eosinophils/100 WBC (Bld) 6.7 % . [facility] Erythrocyte distribution wid th Auto (RBC) [Ratio]Ordered By: Chante Narayan on 10-25-2021 Erythrocyte distribution width (RBC) [Ratio] 17.6 % 12.0-14.8 [facility] Estimated glomerular filtrat ion rate (GFR) non- AmericanOrdered By: Chante Narayan on 10-25-2021 GFR/1.73 sq M.predicted among non-blacks MDRD (S/P/Bld) [Vol rate/Area] 59 mL/Min [facility] Hematocrit Auto (Bld) [Volum e fraction]Ordered By: Chante Narayan on 10-25-2021 Hematocrit (Bld) [Volume fraction] 33.0 % 38.8-50.0 [facility] Laboratory - Hematology and Cell countsOrdered By: Chante Narayan on 10-25-2021 Nucleated RBC/100 WBC (Bld) [Ratio] 0.1 % 0-0.5 [facility] Lymphocytes Auto (Bld) [#/Vo l]Ordered By: Chante Narayan on 10-25-2021 Lymphocytes (Bld) [#/Vol] 0.5 10*3/uL 1.00-4.8 [facility] Lymphocytes/100 WBC Auto (Bl d)Ordered By: Chante Narayan on 10-25-2021 Lymphocytes/100 WBC (Bld) 9.4 % . [facility] MCH Auto (RBC) [Entitic mass ]Ordered By: Chante Narayan on 10-25-2021 MCH (RBC) [Entitic mass] 29.3 pg 27.5-35.2 [facility] MCHC Auto (RBC) [Mass/Vol]Or dered By: Chante Narayan on 10-25-2021 MCHC (RBC) [Mass/Vol] 33.8 g/dL 32.5-35.6 [facility] MCV Auto (RBC) [Entitic vol] Ordered By: Chante Narayan on 10-25-2021 MCV (RBC) [Entitic vol] 86.7 fL 83.5-101 F [facility] Monocytes Auto (Bld) [#/Vol] Ordered By: Chante Narayan on 10-25-2021 Monocytes (Bld) [#/Vol] 0.8 10*3/uL 0.0-0.8 [facility] Monocytes/100 WBC Auto (Bld) Ordered By: Chante Narayan on 10-25-2021 Monocytes/100 WBC (Bld) 14.5 % . [facility] Neutrophils Auto (Bld) [#/Vo l]Ordered By: Chante Narayan on 10-25-2021 Neutrophils (Bld) [#/Vol] 4.0 10*3/uL 1.8-7.7 [facility] Neutrophils/100 WBC Auto (Bl d)Ordered By: Chante Narayan on 10-25-2021 Neutrophils/100 WBC (Bld) 69.1 % . [facility] No Panel InformationOrdered By: Chante Narayan on 10-25-2021 Estimated GFR () > 60 mL/Min [facility] Comment on above: GFR estimated refere nce range: According to KDOQI guidelines, <60 ml/min/1.73m2 is sufficient to diagnose a patient with chronic kidney disease. Pharmacy Creatinine Clearance (Chem 60.35 [facility] Platelet mean volume Auto (B ld) [Entitic vol]Ordered By: Chante Narayan on 10-25-2021 Platelet mean volume (Bld) [Entitic vol] 8.6 fL 6.6-10.1 [facility] Platelets Auto (Bld) [#/Vol] Ordered By: Chante Narayan on 10-25-2021 Platelets (Bld) [#/Vol] 159 10*3/uL 150-450 [facility] RBC Auto (Bld) [#/Vol]Ordere d By: Chante Narayan on 10-25-2021 RBC (Bld) [#/Vol] 3.81 10*6/uL 3.90-5.60 [facility] Serum or plasma calcium sergei urement (mass/volume)Ordered By: Chante Narayan on 10-25-2021 Calcium [Mass/Vol] 9.1 mg/dL 8.2-10.2 [facility] Serum or plasma chloride zofia surement (moles/volume)Ordered By: Chante Narayan on 10-25-2021 Chloride [Moles/Vol] 102 mmol/L 95-114 [facility] Serum or plasma glucose sergei urement (mass/volume)Ordered By: Chante Narayan on 10-25-2021 Glucose [Mass/Vol] 176 mg/dL 70-100 [facility] Comment on above: ADA recommended refe rence range Random Glucose Reference Range is dependent on time and content of last meal. Glucose of more than 200 mg/dL in a nonstressed, ambulatory subject supports the diagnosis of Diabetes Mellitus. Serum or plasma potassium me asurement (moles/volume)Ordered By: Chante Narayan on 10-25-2021 Potassium [Moles/Vol] 3.6 mmol/L 3.5-5.1 [facility] Serum or plasma sodium measu rement (moles/volume)Ordered By: Chante Narayan on 10-25-2021 Sodium [Moles/Vol] 136 mmol/L 136-146 [facility] Serum or plasma total carbon dioxide measurement (moles/volume)Ordered By: Chante Narayan on 10-25-2021 CO2 [Moles/Vol] 25.8 mmol/L 22.0-30.0 [facility] Serum or plasma urea nitroge n measurement (mass/volume)Ordered By: Chante Narayan on 10-25-2021 Urea nitrogen [Mass/Vol] 32 mg/dL 12-23 [facility] Albumin [Mass/volume] in Ser um or PlasmaOrdered By: Chante Narayan 10-22-2021 Albumin [Mass/Vol] 3.1 g/dL 3.2-5.5 [facility] Globulin Calc (S) [Mass/Vol] Ordered By: Chante Narayan 10-22-2021 Globulin (S) [Mass/Vol] 3.0 g/dL [facility] Protein [Mass/volume] in Ser um or PlasmaOrdered By: Chante Narayan 10-22-2021 Protein [Mass/Vol] 6.1 g/dL 6.1-7.9 [facility] Serum or plasma alanine dasilva otransferase measurement without P-5'-P (enzymatic activiOrdered By: Chante Narayan on 10-22-2021 ALT No additional P-5'-P [Catalytic activity/Vol] 21 U/L 10-60 [facility] Serum or plasma albumin/glob ulin mass ratioOrdered By: Chante Narayan 10-22-2021 Albumin/Globulin [Mass ratio] 1.0 {ratio} [facility] Serum or plasma alkaline bob sphatase measurement (enzymatic activity/volume)Ordered By: Chante Narayan on 10-22-2021 ALP [Catalytic activity/Vol] 71 U/L 32-92 [facility] Serum or plasma aspartate am inotransferase measurement (enzymatic activity/volume)Ordered By: Chante Narayan on 10-22-2021 AST [Catalytic activity/Vol] 23 U/L 10-42 [facility] Serum or plasma prealbumin m easurement (mass/volume)Ordered By: Chante Narayan on 10-22-2021 Prealbumin [Mass/Vol] 19.4 mg/dL 18.0-38.0 [facility] Serum or plasma total biliru bin measurement (mass/volume)Ordered By: Chante Narayan on 10-22-2021 Bilirubin [Mass/Vol] 1.0 mg/dL 0.3-1.2 [facility] Bacteria identified Anaer cx Nom (Unsp spec)Ordered By: Reddy Brandt on 10-21-2021 Anaerobic microbial culture No Anaerobes Isolated 3 Days [facility] COVID-19 Positive/NegativeOr dered By: Reddy Brandt on 10-21-2021 SARS-CoV-2 (COVID-19) N gene MEREDITH+probe Ql (Resp) Negative Negative [facility] Comment on above: Testing for SARS-CoV -2 by RT-PCR This test was developed and its performance characteristics determined by [employer] ([employer]) and validated at the [facility]. This test has not been FDA [...] Brandt on 10-21-2021 Glucose [Mass/Vol] 298 mg/dL [facility] Comment on above: Random Glucose Refer ence Range is dependent on time and content of last meal. Glucose of more than 200 mg/dL in a nonstressed, ambulatory subject supports the diagnosis of Diabetes Mellitus. No Panel InformationOrdered By: Reddy Brandt on 10-21-2021 Bedside Glucose Comment Glu2: cleaned meter [facility] Bedside Glucose #2 Comment Cleaned meter [facility] ABO and Rh group post transf usion reaction Nom (Bld)Ordered By: Reddy Brandt on 10-19-2021 Microscopic observation Gram stain Nom (Unsp spec) [facility] COVID-19 Positive/NegativeOr dered By: Reddy Brandt on 10-14-2021 SARS-CoV-2 (COVID-19) N gene MEREDITH+probe Ql (Resp) Negative Negative [facility] Comment on above: Testing for SARS-CoV -2 by RT-PCR This test was developed and its performance characteristics determined by [employer] ([employer]) and validated at the [facility]. This test has not been FDA [...] (Bld) [#/Vol] 0.0 10*3/uL 0.0-0.2 [facility] Basophils/100 WBC Auto (Bld) Ordered By: Reddy Brandt on 10-06-2021 Basophils/100 WBC (Bld) 0.6 % . [facility] Blood hemoglobin measurement (mass/volume)Ordered By: Reddy Brandt on 10-06-2021 Hemoglobin (Bld) [Mass/Vol] 13.7 g/dL 13.0-17.0 [facility] Blood leukocytes automated c ount (number/volume)Ordered By: Reddy Brandt on 10-06-2021 WBC (Bld) [#/Vol] 7.8 10*3/uL 4.5-11.0 [facility] Creatinine and Glomerular fi ltration rate.predicted panel (S/P/Bld)Ordered By: Reddy Brandt on 10-06-2021 Creatinine [Mass/Vol] 1.76 mg/dL 0.64-1.27 [facility] Eosinophils Auto (Bld) [#/Vo l]Ordered By: Reddy Brandt on 10-06-2021 Eosinophils (Bld) [#/Vol] 0.4 10*3/uL 0.0-0.45 [facility] Eosinophils/100 WBC Auto (Bl d)Ordered By: Reddy Brandt on 10-06-2021 Eosinophils/100 WBC (Bld) 4.9 % . [facility] Erythrocyte distribution wid th Auto (RBC) [Ratio]Ordered By: Reddy Brandt on 10-06-2021 Erythrocyte distribution width (RBC) [Ratio] 18.8 % 12.0-14.8 [facility] Erythrocyte sedimentation ra te by Photometric methodOrdered By: Reddy Brandt on 10-06-2021 ESR Photometric method (Bld) [Velocity] 21 mm/hr 0-19 [facility] Estimated glomerular filtrat ion rate (GFR) non- AmericanOrdered By: Reddy Brandt on 10-06-2021 GFR/1.73 sq M.predicted among non-blacks MDRD (S/P/Bld) [Vol rate/Area] 39 mL/Min [facility] Glucose mean value [Mass/vol ume] in Blood Estimated from glycated hemoglobinOrdered By: Reddy Brandt on 10-06-2021 Average glucose Estimated from glycated hemoglobin (Bld) [Mass/Vol] 163 mg/dL [facility] Hematocrit Auto (Bld) [Volum e fraction]Ordered By: Reddy Brandt on 10-06-2021 Hematocrit (Bld) [Volume fraction] 41.1 % 38.8-50.0 [facility] Hemoglobin A1c percentageOrd ered By: Reddy Brandt on 10-06-2021 HbA1c (Bld) [Mass fraction] 7.3 % 4.3-5.6 [facility] Comment on above: Increased risk for d iabetes: 5.7 - 6.4 diabetes: >6.4 glycemic control for adults with diabetes: <7.0 Laboratory - Hematology and Cell countsOrdered By: Reddy Brandt on 10-06-2021 Nucleated RBC/100 WBC (Bld) [Ratio] 0.0 % 0-0.5 [facility] Lymphocytes Auto (Bld) [#/Vo l]Ordered By: Reddy Brandt on 10-06-2021 Lymphocytes (Bld) [#/Vol] 0.8 10*3/uL 1.00-4.8 [facility] Lymphocytes/100 WBC Auto (Bl d)Ordered By: Reddy Brandt on 10-06-2021 Lymphocytes/100 WBC (Bld) 10.9 % . [facility] MCH Auto (RBC) [Entitic mass ]Ordered By: Reddy Brandt on 10-06-2021 MCH (RBC) [Entitic mass] 28.8 pg 27.5-35.2 [facility] MCHC Auto (RBC) [Mass/Vol]Or dered By: Reddy Brandt on 10-06-2021 MCHC (RBC) [Mass/Vol] 33.3 g/dL 32.5-35.6 [facility] MCV Auto (RBC) [Entitic vol] Ordered By: Reddy Brandt on 10-06-2021 MCV (RBC) [Entitic vol] 86.3 fL 83.5-101 [facility] Monocytes Auto (Bld) [#/Vol] Ordered By: Reddy Brandt on 10-06-2021 Monocytes (Bld) [#/Vol] 0.9 10*3/uL 0.0-0.8 [facility] Monocytes/100 WBC Auto (Bld) Ordered By: Reddy Brandt on 10-06-2021 Monocytes/100 WBC (Bld) 11.8 % . [facility] Neutrophils Auto (Bld) [#/Vo l]Ordered By: Reddy Brandt on 10-06-2021 Neutrophils (Bld) [#/Vol] 5.6 10*3/uL 1.8-7.7 [facility] Neutrophils/100 WBC Auto (Bl d)Ordered By: Reddy Brandt on 10-06-2021 Neutrophils/100 WBC (Bld) 71.8 % . [facility] No Panel InformationOrdered By: Reddy Brandt on 10-06-2021 Estimated GFR () 48 mL/Min [facility] Comment on above: GFR estimated refere nce range: According to KDOQI guidelines, <60 ml/min/1.73m2 is sufficient to diagnose a patient with chronic kidney disease. Pharmacy Creatinine Clearance (Chem N/A [facility] Platelet mean volume Auto (B ld) [Entitic vol]Ordered By: Reddy Brandt on 10-06-2021 Platelet mean volume (Bld) [Entitic vol] 9.1 fL 6.6-10.1 [facility] Platelets Auto (Bld) [#/Vol] Ordered By: Reddy Brandt on 10-06-2021 Platelets (Bld) [#/Vol] 131 10*3/uL 150-450 [facility] RBC Auto (Bld) [#/Vol]Ordere d By: Reddy Brandt on 10-06-2021 RBC (Bld) [#/Vol] 4.77 10*6/uL 3.90-5.60 [facility] Serum or plasma C reactive p rotein measurement (mass/volume)Ordered By: Reddy Brandt on 10-06-2021 CRP [Mass/Vol] 0.5 mg/dL 0.0-1.0 [facility] Serum or plasma chloride zofia surement (moles/volume)Ordered By: eRddy Brandt on 10-06-2021 Chloride [Moles/Vol] 93 mmol/L 95-114 [facility] Serum or plasma potassium me asurement (moles/volume)Ordered By: Reddy Brandt on 10-06-2021 Potassium [Moles/Vol] 3.8 mmol/L 3.5-5.1 [facility] Serum or plasma sodium measu rement (moles/volume)Ordered By: Reddy Brandt on 10-06-2021 Sodium [Moles/Vol] 139 mmol/L 136-146 [facility] Serum or plasma total carbon dioxide measurement (moles/volume)Ordered By: Reddy Brandt on 10-06-2021 CO2 [Moles/Vol] 31.4 mmol/L 22.0-30.0 [facility] Serum or plasma urea nitroge n measurement (mass/volume)Ordered By: Reddy Brandt on 10-06-2021 Urea nitrogen [Mass/Vol] 52 mg/dL 12-23 [facility] WOUND CULTUREon 09-12-2021 Bacteria identified Aer cx Nom (Unsp spec) Final report Normal [facility] Comment on above: Performed By: #### C XWND ####[facility] [address] [place], [place] [address]Dr. Anjali Reagan Result 1 Mixed skin areli Normal [facility] Comment on above: Performed By: #### C XWND ####[facility] [address] [place], [place] [address]Dr. Anjali Reagan CBC AUTO DIFFon 09-09-2021 BASO # 0.0 103/ul Normal 0.0-0.1 [facility] Comment on above: Performed By: #### C BC ####[facility] X[address] [place], [place] [address]Dr. Anjali Reagan Basophils/100 WBC (Bld) 0.6 % Normal 0.2-2.0 [facility] Comment on above: Performed By: #### C BC ####[facility] U[address]wxiruf[address] [place], [place] [address]Dr. Anjali Reagan EO # 0.3 103/ul Normal 0.0-0.7 [facility] Comment on above: Performed By: #### C BC ####[facility] Byx[address]ue[address] [place], [place] [address]Dr. Anjali Reagan Eosinophils/100 WBC (Bld) 4.1 % Normal 0.9-7.0 [facility] Comment on above: Performed By: #### C BC ####[facility] [address] [place] [address]Dr. Anjali Reagan Erythrocyte distribution width (RBC) [Ratio] 16.1 % Critically high 11.0-15.0 [facility] Comment on above: Performed By: #### C BC ####[facility] [address] [place] [address]Dr. Anjali Reagan Hematocrit (Bld) [Volume fraction] 38.3 % Critically low 42.0-54.0 [facility] Comment on above: Performed By: #### C BC ####[facility] [address] [place] [address]Dr. Anjali Reagan Hemoglobin (Bld) [Mass/Vol] 12.0 g/dL Critically low 14.0-18.0 [facility] Comment on above: Performed By: #### C BC ####[facility] [address] [place] [address]Dr. Anjali Reagan IG # 0.04 10e3/ul Critically high 0.00-0.03 [facility] Comment on above: Performed By: #### C BC ####[facility] [address] [place] [address]Dr. Anjali Reagan IG % 0.6 % Critically high 0.0-0.5 [facility] Comment on above: Performed By: #### C BC ####[facility] [address] [place] [address]Dr. Anjali Reagan LYMPH # 0.9 103/ul Critically low 1.2-3.8 [facility] Comment on above: Performed By: #### C BC ####[facility] [address] [place] [address]Dr. Anjali Reagan Lymphocytes/100 WBC (Bld) 12.6 % Critically low 20.5-60.0 [facility] Comment on above: Performed By: #### C BC ####[facility] [address] [place] [phone]. Anjali Reagan MANUAL DIFF REQ NO Normal [facility] Comment on above: Performed By: #### C BC ####[facility] [address] [place] [phone]. Anjali Reagan MCH (RBC) [Entitic mass] 27.5 pg Normal 25.9-34.0 [facility] Comment on above: Performed By: #### C BC ####[facility] [address] [place] [phone]. Anjali Reagan MCHC (RBC) [Mass/Vol] 31.3 g/dL Normal 29.9-35.2 [facility] Comment on above: Performed By: #### C BC ####[facility] [address] [place] [address]Dr. Anjali Tez MCV (RBC) [Entitic vol] 87.6 fL Normal 80.0-94.0 [facility] Comment on above: Performed By: #### C BC ####[facility] [address] [place] [phone]. Anjali Tez MONO # 0.7 103/ul Normal 0.3-0.8 [facility] Comment on above: Performed By: #### C BC ####[facility] X[address] [place] [phone]. Biancaramona Reagan Monocytes/100 WBC (Bld) 10.3 % Normal 1.7-12.0 [facility] Comment on above: Performed By: #### C BC ####[facility] [address] [place] [phone]. Biancaramona Reagan NEUT # 5.1 103/ul Normal 1.4-6.5 [facility] Comment on above: Performed By: #### C BC ####[facility] [address] [place] [phone]. Anjali Reagan Neutrophils/100 WBC (Bld) 71.8 % Normal 43.0-75.0 [facility] Comment on above: Performed By: #### C BC ####[facility] [address] [place] [phone]. Anjali Reagan Platelet mean volume (Bld) [Entitic vol] 9.4 fL Critically low 9.5-13.5 [facility] Comment on above: Performed By: #### C BC ####[facility] [address] [place] [phone]. Anjali Reagan PLT 249 103/ul Normal 150-450 [facility] Comment on above: Performed By: #### C BC ####[facility] [address]vacylf[address] [place] [address]Dr. Anjali Reagan RBC 4.37 106/ul Critically low 4.70-6.10 [facility] Comment on above: Performed By: #### C BC ####[facility] [address] [place] [address]Dr. Anjali Reagan WBC 7.1 103/ul Normal 4.0-11.0 [facility] Comment on above: Performed By: #### C BC ####[facility] [address]ozrx[address] [place] [address]Dr. Anjali Tez CRPon 09-09-2021 CRP 1.9 mg/dL Critically high <=1.0 [facility] Comment on above: Performed By: #### C RP, CMP ####[facility] [address]we[address] [place], [place] [address]Dr. Anjali Tez GRAM STAINon 09-09-2021 COMMENTS NO ORGANISMS OBSERVED Normal [facility] Comment on above: Performed By: #### G STAIN ####[facility] [address] [place] [address]Dr. Anjali Reagan DIPHTHEROIDS Normal [facility] Comment on above: Performed By: #### G STAIN ####[facility] [address] [place], [place] [address]Dr. Anjali Reagan EPITHELIALS Normal [facility] Comment on above: Performed By: #### G STAIN ####[facility] [address] [place] [address]Dr. Anjali Reagan FUNGAL ELEMENTS Normal [facility] Comment on above: Performed By: #### G STAIN ####[facility] [address] [place] [address]Dr. Anjali Reagan GRAM NEG BACILLI Normal [facility] Comment on above: Performed By: #### G STAIN ####[facility] [address]mb[address] [place] [address]Dr. Anjali Reagan GRAM NEG DIPPLOCOCCI Normal [facility] Comment on above: Performed By: #### G STAIN ####[facility] X[address] [place] [address]Dr. Anjali Reagan GRAM POS BACILLI Normal [facility] Comment on above: Performed By: #### G STAIN ####[facility] [address] [place], [place] [address]Dr. Anjali Reagan GRAM POSITIVE COCCI Normal [facility] Comment on above: Performed By: #### G STAIN ####[facility] Nzgnt[address] [place], [place] [address]Dr. Anjali Reagan GRAM STAIN SOURCE Left foot lateral Normal [facility] Comment on above: Performed By: #### G STAIN ####[facility] [address] [place], [place] [address]Dr. Anjali Reagan GS_DIPTH Normal [facility] Comment on above: Performed By: #### G STAIN ####[facility] Qiuussoelg[address] [place], [place] [address]Dr. Anjali Reagan WBC RARE Normal [facility] Comment on above: Performed By: #### G STAIN ####[facility] Hebpqhvurg[address] [place], [place] [address]Dr. Anjali Reagan PROF 14(COMP METB)on 022 Albumin [Mass/Vol] 3.5 g/dL Normal 3.4-5.0 [facility] Comment on above: Performed By: #### C RP, CMP ####[facility] [address]zs[address] [place], [place] [address]Dr. Anjali Reagan Albumin/Globulin [Mass ratio] 0.8 {ratio} Normal [facility] Comment on above: Performed By: #### C RP, CMP ####[facility] [address]cis[address] [place] [address]Dr. Anjali Reagan ALP [Catalytic activity/Vol] 136 U/L Critically high 46-116 [facility] Comment on above: Performed By: #### C RP, CMP ####[facility] [address]wr[address]mmgfv[address] [place] [address]Dr. Anjali Reagan ALT [Catalytic activity/Vol] 34 U/L Normal 16-63 [facility] Comment on above: Performed By: #### C RP, CMP ####[facility] [address]so[address] [place], [place] [address]Dr. Anjali Reagan Anion gap [Moles/Vol] 12.9 mmol/L Normal [facility] Comment on above: Performed By: #### C RP, CMP ####[facility] Ix[address]wgpr[address] [place], [place] [address]Dr. Anjali Reagan AST [Catalytic activity/Vol] 27 U/L Normal 15-37 [facility] Comment on above: Performed By: #### C RP, CMP ####[facility] Xwqgxzieuj[address] [place], [place] [address]Dr. Anjali Reagan Bilirubin [Mass/Vol] 0.4 mg/dL Normal 0.2-1.0 [facility] Comment on above: Performed By: #### C RP, CMP ####[facility] Nscp[address]fhbx[address] [place], [place] [address]Dr. Anjali Reagan Calcium [Mass/Vol] 9.7 mg/dL Normal 8.5-10.1 [facility] Comment on above: Performed By: #### C RP, CMP ####[facility] K[address]qwwjlztf[address] [place], [place] [address]Dr. Anjali Reagan Chloride [Moles/Vol] 103 mmol/L Normal 98-107 [facility] Comment on above: Performed By: #### C RP, CMP ####[facility] Npfxjbswgw[address] [place], [place] [address]Dr. Anjali Reagan CO2 [Moles/Vol] 28.9 mmol/L Normal 21.0-32.[address] [facility] Comment on above: Performed By: #### C RP, CMP ####[facility] [address] [place] [phone]. Anjali Reagan Creatinine [Mass/Vol] 1.57 mg/dL Critically high 0.70-1.30 [facility] Comment on above: Performed By: #### C RP, CMP ####[facility] [address] [place] [phone]. Anjali Reagan EGFR-AF MACANESE 54 mL/min/1.73m2 Critically low >=60 [facility] Comment on above: Performed By: #### C RP, CMP ####[facility] [address] [place], [place] [address]Dr. Anjali Reagan EGFR-NON AF MACANESE 45 mL/min/1.73m2 Critically low >=60 [facility] Comment on above: Performed By: #### C RP, CMP ####[facility] Hz[address]iedslrt[address] [place], [place] [address]Dr. Anjali Reagan Globulin (S) [Mass/Vol] 4.5 g/dL Normal [facility] Comment on above: Performed By: #### C RP, CMP ####[facility] V[address]zez[address] [place], [place] [address]Dr. Anjali Reagan Glucose [Mass/Vol] 174 mg/dL Critically high 74-106 [facility] Comment on above: Performed By: #### C RP, CMP ####[facility] Aas[address] [place], [place] [address]Dr. Anjali Reagan Potassium [Moles/Vol] 4.8 mmol/L Normal 3.5-5.1 [facility] Comment on above: Performed By: #### C RP, CMP ####[facility] [address] [place], [place] [address]Dr. Anjali Reagan Protein [Mass/Vol] 8.0 g/dL Normal 6.4-8.2 [facility] Comment on above: Performed By: #### C RP, CMP ####[facility] [address]atgszs[address] [place], [place] [address]Dr. Anjali Reagan Sodium [Moles/Vol] 140 mmol/L Normal 136-145 [facility] Comment on above: Performed By: #### C RP, CMP ####[facility] [address] [place] [phone]. Anjali Reagan Urea nitrogen [Mass/Vol] 34.0 mg/dL Critically high 7.0-18 .0 [facility] Comment on above: Performed By: #### C RP, CMP ####[facility] [facility] Ahcs[address]fkyg[address] [place] [id number]. Anjali Reagan Urea nitrogen/Creatinine [Mass ratio] 21.7 mg/mg Normal [facility] Comment on above: Performed By: #### C RP, CMP ####[facility] Vpwmumkeqo20[address] [place] [phone]. Anjali Reagan XR FOOT RT MIN 3 VIEWSon XR FOOT RT MIN 3 VIEWS Normal [facility] XR ANKLE RT MIN 3 VIEWSon XR ANKLE RT MIN 3 VIEWS Normal [facility] CULTURE BLOODon 08-26-2021 Microscopic examination of blood, culture Culture Observations: NO GROWTH AT 5 DAYS. Normal [facility] Comment on above: Performed By: #### B LDCX2 ####[facility] Ffnujyfq[address] [place], [place] [address]Dr. Anjali Reagan Microscopic examination of blood, culture Culture Observations: NO GROWTH AT 5 DAYS. Normal [facility] Comment on above: Performed By: #### B LDCX1 ####[facility] Ujhwiqjkbg[address] [place] [address]Dr. Anjali Reagan PREALBUMINon 08-26-2021 Prealbumin [Mass/Vol] 14 mg/dL Normal [facility] Comment on above: Performed By: #### P REALBL ####[facility] Dqqsqwlmvb[address] [place], [place] [id number]. Anjali Reagan CBC W MANUAL DIFFon 08-25-19 ANISOCYTOSIS SLIGHT Normal [facility] Comment on above: Performed By: #### C BCMAN ####[facility] Cojkjmfuyl62[address] [place] [phone]. Anjali Reagan ATYPICAL LYMPH # Normal [facility] Comment on above: Performed By: #### C BCMAN ####[facility] Ewyrescsnn7513 [place] [address]Dr. Anjali Reagan ATYPICAL LYMPH % Normal [facility] Comment on above: Performed By: #### C CORI ####[facility] Canksmzdcf0968 [place] [address]Dr. Yilan Reagan BAND # Normal 0.0-0.3 [facility] Comment on above: Performed By: #### C CORI ####[facility] Cgielgyetw6409 [place] [address]Dr. Yilan Reagan BAND % Normal 0-5 [facility] Comment on above: Performed By: #### C CORI ####[facility] Qvjzxvjbgi[address] [place], [place] [address]Dr. Yilan Reagan BASOM # 0.00 103/ul Normal 0.00-0.10 [facility] Comment on above: Performed By: #### C CORI ####[facility] Qxmflewqut8[address] [place], [place] [address]Dr. Yiramona Reagan BASOM % 0.0 % Critically low 0.2-2.0 [facility] Comment on above: Performed By: #### C CORI ####[facility] Ppibgzhaef[address] [place], [place] [address]Dr. Yilan Reagan BLAST # Normal [facility] Comment on above: Performed By: #### C CORI ####[facility] Xrtafwgyuw[address] [place], [place] [address]Dr. Yilan Reagan BLAST % Normal [facility] Comment on above: Performed By: #### C CORI ####[facility] Pgnfnifhhy5[address] [place] [address]Dr. Anjali Reagan CORRECTED WBC Normal 4.0-11.[address] [facility] Comment on above: Performed By: #### C CORI ####[facility] Kgxdgszwfd[address] [place], [place] [address]Dr. Yilan Reagan EOS # 0.34 103/ul Normal 0.00-0.70 [facility] Comment on above: Performed By: #### C CORI ####[facility] Ixyaqyrboe2129 [place], [place] [address]Av. Anjali Reagan EOS% 3.0 % Normal 0.9-7.0 [facility] Comment on above: Performed By: #### C CORI ####[facility] Hpsqxevqdq2287 [place], [place] [address]Xv. Anjali Reagan HCT 36.2 % Critically low 42.0-54.0 [facility] Comment on above: Performed By: #### C CORI ####[facility] Yjzchkejqj1842 [place], [place] [address]Iu. Anjali Reagan HGB 11.8 g/dl Critically low 14.0-18.0 [facility] Comment on above: Performed By: #### C CORI ####[facility] Rjmycjftrf2397 [place] [phone]. Anjali Reagan LYMPHM # 1.03 103/ul Critically low 1.20-3.80 [facility] Comment on above: Performed By: #### C CORI ####[facility] Uyumegpghs7256 [place], [place] [address]Jl. Anjali Reagan LYMPHM% 9.0 % Critically low 20.5-60.0 [facility] Comment on above: Performed By: #### C CORI ####[facility] Ogfpymxnhf1824 [place], [place] [address]Vc. Anjali eRagan MCH 28.0 pg Normal 25.9-34.0 [facility] Comment on above: Performed By: #### C CORI ####[facility] Scrytsyjnv8106 [place], [place] [address]Sg. Anjali Reagan MCHC 32.6 g/dl Normal 29.9-35.2 [facility] Comment on above: Performed By: #### C CORI ####[facility] Fgsfguaneg0823 [place], [place] [address]Go. Anjali Reagan MCV 85.8 fL Normal 80.0-94.0 [facility] Comment on above: Performed By: #### C CORI ####[facility] Bphndnqmef14[address] [place] [phone]. Anjali Reagan METAMYELOCYTE # Normal [facility] Comment on above: Performed By: #### C BCMAN ####[facility] Yokxuhozfu3417 [place] [phone]. Anjali Reagan METAMYELOCYTE % Normal [facility] Comment on above: Performed By: #### C BCMAN ####[facility] Ozfmtexdvu5899 [place] [phone]. Anjali Reagan MONOM# 1.61 103/ul Critically high 0.30-0.80 [facility] Comment on above: Performed By: #### C CORI ####[facility] Jggehlamxx0704 [place] [phone]. Anjali Reagan MONOM% 14.0 % Critically high 1.7-12.0 [facility] Comment on above: Performed By: #### C CORI ####[facility] Hjdctzhupm7934 [place] [phone]. Anjali Reagan MPV 8.9 fL Critically low 9.5-13.5 [facility] Comment on above: Performed By: #### C CORI ####[facility] Jsintsaajy2991 [place] [phone]. Anjali Reagan MYELOCYTE # Normal [facility] Comment on above: Performed By: #### C CORI ####[facility] Kuxjasacyc0317 [place] [phone]. Anjali Reagan MYELOCYTE % Normal [facility] Comment on above: Performed By: #### C BCFIONA ####[facility] Dnroifhara3439 [place] [phone]. Anjali Reagan NRBC Normal [facility] Comment on above: Performed By: #### C CORI ####[facility] Llmwhkderi7558 [place] [phone]. Anjali Reagan PLT 263 103/ul Normal 150-450 [facility] Comment on above: Performed By: #### C BCFIONA ####[facility] Edikssgerg9170 [place] [phone]. Anjali Tez RBC 4.22 106/ul Critically low 4.70-6.10 [facility] Comment on above: Performed By: #### Uzair PERSAUD ####[facility] Wpqofexfdu3408 [place] [address]Dr. Anjali Reagan RDW 16.0 % Critically high 11.0-15.0 [facility] Comment on above: Performed By: #### Uzair PERSAUD ####[facility] Lbdvkjaxap0913 [place] [address]Dr. Anjali Tez SEG # 8.51 103/ul Critically high 1.40-6.50 [facility] Comment on above: Performed By: #### Uzair PERSAUD ####[facility] Hepmfnzzqq9708 [place] [address]Dr. Anjali Tez SEG % 74.0 % Normal 43.0-75.0 [facility] Comment on above: Performed By: #### Uzair PERSAUD ####[facility] Blfyzcrize4837 [place] [address]Dr. Anjali Tez WBC 11.5 103/ul Critically high 4.0-11.0 [facility] Comment on above: Performed By: #### Uzair PERSAUD ####[facility] Fxhyogwzaj[address] [place], [place] [address]DrVeronica Anjali Tez CRPon 08-24-2021 CRP 11.6 mg/dL Critically high <=1.0 [facility] Comment on above: Performed By: #### C RP, CMP ####[facility] Taoedtomwq[address] [place], [place] [address]DrVeronica Reagan PROF 14(COMP METB)on 022 Albumin [Mass/Vol] 3.2 g/dL Critically low 3.4-5.0 [facility] Comment on above: Performed By: #### C RP, CMP ####[facility] Klgpaoozyg3355 [place] [address]Dr. Anjali Reagan Albumin/Globulin [Mass ratio] 0.7 {ratio} Normal [facility] Comment on above: Performed By: #### C RP, CMP ####[facility] Plkashoxaa6739 [place] [address]Dr. Anjali Reagan ALP [Catalytic activity/Vol] 107 U/L Normal 46-116 [facility] Comment on above: Performed By: #### C RP, CMP ####[facility] Cidgelkcxe[address] [place], [place] [address]Dr. Anjali Reagan ALT [Catalytic activity/Vol] 57 U/L Normal 16-63 [facility] Comment on above: Performed By: #### C RP, CMP ####[facility] Hzkcioeuvo5884 [place] [address]Dr. Anjali Reagan Anion gap [Moles/Vol] 13.7 mmol/L Normal [facility] Comment on above: Performed By: #### C RP, CMP ####[facility] Guhjtqyhpn7[address] [place], [place] [address]Dr. Anjali Reagan AST [Catalytic activity/Vol] 40 U/L Critically high 15-37 [facility] Comment on above: Performed By: #### C RP, CMP ####[facility] Samssrhgxk725[address] [place], [place] [address]Dr. Anjali Reagan Bilirubin [Mass/Vol] 0.6 mg/dL Normal 0.2-1.0 [facility] Comment on above: Performed By: #### C RP, CMP ####[facility] Cwtdeukkmt726[address] [place], [place] [address]Dr. Anjali Reagan Calcium [Mass/Vol] 9.7 mg/dL Normal 8.5-10.1 [facility] Comment on above: Performed By: #### C RP, CMP ####[facility] Viadlflhif8126 [place] [address]Dr. Anjali Reagan Chloride [Moles/Vol] 98 mmol/L Normal 98-107 [facility] Comment on above: Performed By: #### C RP, CMP ####[facility] Blchrekfru6609 [place] [address]Dr. Anjali Reagan CO2 [Moles/Vol] 30.0 mmol/L Normal 21.0-32.0 [facility] Comment on above: Performed By: #### C RP, CMP ####[facility] Wgztkgwgpe2665 [place] [phone]. Anjali Reagan Creatinine [Mass/Vol] 1.73 mg/dL Critically high 0.70-1.30 [facility] Comment on above: Performed By: #### C RP, CMP ####[facility] Kdenkktoiw[address] [place], [place] [address]Dr. Anjali Reagan EGFR-AF MACANESE 49 mL/min/1.73m2 Critically low >=60 [facility] Comment on above: Performed By: #### C RP, CMP ####[facility] Rcsaauxylg75[address] [place], [place] [address]Dr. Anjali Reagan EGFR-NON AF MACANESE 40 mL/min/1.73m2 Critically low >=60 [facility] Comment on above: Performed By: #### C RP, CMP ####[facility] Aevpekdwke[address] [place], [place] [address]Dr. Anjali Reagan Globulin (S) [Mass/Vol] 4.7 g/dL Normal [facility] Comment on above: Performed By: #### C RP, CMP ####[facility] Lrsbswqtbn7[address] [place], [place] [address]Dr. Anjali Reagan Glucose [Mass/Vol] 92 mg/dL Normal 74-106 [facility] Comment on above: Performed By: #### C RP, CMP ####[facility] Ubkntpqfiw250[address] [place], [place] [address]Dr. Anjali Reagan Potassium [Moles/Vol] 3.7 mmol/L Normal 3.5-5.1 [facility] Comment on above: Performed By: #### C RP, CMP ####[facility] Gvrgxtvece[address] [place], [place] [address]Dr. Anjali Reagan Protein [Mass/Vol] 7.9 g/dL Normal 6.4-8.2 [facility] Comment on above: Performed By: #### C RP, CMP ####[facility] Lvrnfupcct8[address] [place], [place] [address]Dr. Anjali Reagan Sodium [Moles/Vol] 138 mmol/L Normal 136-145 [facility] Comment on above: Performed By: #### C RP, CMP ####[facility] Dtpcbwjeuk0512 [place], [place] [address]Yl. Anjali Reagan Urea nitrogen [Mass/Vol] 50.0 mg/dL Critically high 7.0-18 .0 [facility] Comment on above: Performed By: #### C RP, CMP ####[facility] Ryepebmppu4196 [place], [place] [address]Ye. Anjali Reagan Urea nitrogen/Creatinine [Mass ratio] 28.9 mg/mg Normal [facility] Comment on above: Performed By: #### C RP, CMP ####[facility] Rqnvpmauke6638 [place], [place] [address]Jl. Anjali Reagan [facility] 17 mm/hr Normal <=20 [facility] Comment on above: Performed By: #### S EDR ####[facility] Medwdlzbpd8602 [place] [phone]. Anjali Reagan CBC (INCLUDES DIFF/PLT)on Basophils (Bld) [#/Vol] 0.034 10*3/uL Normal 0-200 [facility] Comment on above: Performed By: #### 6 399, 496, 718, 89167 #### [facility] [place] [address] Performance Specialist: Juan Meraz MD Basophils/100 WBC (Bld) 0.3 % Normal [facility] Comment on above: Performed By: #### 6 399, 496, 718, 20045 #### [facility] [place] [address] Performance Specialist: Juan Meraz MD Eosinophils (Bld) [#/Vol] 0.023 10*3/uL Normal 15-500 [facility] Comment on above: Performed By: #### 6 399, 496, 718, 71398 #### [facility] [address], [address] [place] [address] Performance Specialist: Juan Meraz MD Eosinophils/100 WBC (Bld) 0.2 % Normal [facility] Comment on above: Performed By: #### 6 399, 496, 718, 33820 #### [facility] of [place] [address] Performance Specialist: Juan Meraz MD Erythrocyte distribution width (RBC) [Ratio] 15.6 % High 11.0-15.0 [facility] Comment on above: Performed By: #### 6 399, 496, 718, 93208 #### [facility] of [place] [address] Performance Specialist: Juan Meraz MD Hematocrit (Bld) [Volume fraction] 38.9 % Normal 38.5-50.0 [facility] Comment on above: Performed By: #### 6 399, 496, 718, 67704 #### [facility] [place] [address] Performance Specialist: Juan Meraz MD Hemoglobin (Bld) [Mass/Vol] 12.7 g/dL Low 13.2-17.1 [facility] Comment on above: Performed By: #### 6 399, 496, 718, 99249 #### [facility] [place] [address] Performance Specialist: Juan Meraz MD Lymphocytes (Bld) [#/Vol] 0.531 10*3/uL Low 850-3900 [facility] Comment on above: Performed By: #### 6 399, 496, 718, 62372 #### [facility] [place] [address] Performance Specialist: Juan Meraz MD Lymphocytes/100 WBC (Bld) 4.7 % Normal [facility] Comment on above: Performed By: #### 6 399, 496, 718, 09399 #### [facility] [place] [address] Performance Specialist: Juan Meraz MD MCH (RBC) [Entitic mass] 28.2 pg Normal 27.0-33.0 [facility] Comment on above: Performed By: #### 6 399, 496, 718, 09863 #### [facility] [place] [address] Performance Specialist: Juan Meraz MD MCHC (RBC) [Mass/Vol] 32.6 g/dL Normal 32.0-36.[address] [facility] Comment on above: Performed By: #### 6 399, 496, 718, 57230 #### [facility] [place] [address] Performance Specialist: Juan Meraz MD MCV (RBC) [Entitic vol] 86.4 fL Normal 80.0-100.0 [facility] Comment on above: Performed By: #### 6 399, 496, 718, 16284 #### [facility] [place] [address] Performance Specialist: Juan Meraz MD Monocytes (Bld) [#/Vol] 1.119 10*3/uL High 200-950 [facility] Comment on above: Performed By: #### 6 399, 496, 718, 05178 #### [facility] [place] [address] Performance Specialist: Juan Meraz MD Monocytes/100 WBC (Bld) 9.9 % Normal [facility] Comment on above: Performed By: #### 6 399, 496, 718, 50527 #### [facility] [place] [address] Performance Specialist: Juan Meraz MD Neutrophils (Bld) [#/Vol] 9.594 10*3/uL High 6474-0126 [facility] Comment on above: Performed By: #### 6 399, 496, 718, 60735 #### [facility] [place] [address] Performance Specialist: Juan Meraz MD Neutrophils/100 WBC (Bld) 84.9 % Normal [facility] Comment on above: Performed By: #### 6 399, 496, 718, 30135 #### [facility] [place] [address] Performance Specialist: Juan Meraz MD Platelet mean volume (Bld) [Entitic vol] 10.1 fL Normal 7.5-12.5 [facility] Comment on above: Performed By: #### 6 399, 496, 718, 05206 #### [facility] [place] [address] Performance Specialist: Juan Meraz MD Platelets (Bld) [#/Vol] 267 10*3/uL Normal 140-400 [facility] Comment on above: Performed By: #### 6 399, 496, 718, 81811 #### [facility] [place] [address] Performance Specialist: Juan Meraz MD RBC (Bld) [#/Vol] 4.50 10*6/uL Normal 4.20-5.80 [facility] Comment on above: Performed By: #### 6 399, 496, 718, 16203 #### [facility] [place] [address] Performance Specialist: Juan Meraz MD WBC (Bld) [#/Vol] 11.3 10*3/uL High 3.8-10.8 [facility] Comment on above: Performed By: #### 6 399, 496, 718, 36736 #### [facility] [place] [address] Performance Specialist: Juan Meraz MD HEMOGLOBIN A1con 08-23-2021 HEMOGLOBIN [...] Performed By: #### 6 399, 496, 718, 52757 #### [facility] [address], [address] [place] [address] Performance Specialist: Juan Meraz MD PHOSPHATE ( PHOSPHORUS)on 08-23-2021 Phosphate [Mass/Vol] 3.7 mg/dL Normal 2.5-4.5 [facility] Comment on above: Order Comment: PATIE NT UNABLE TO VOID; ADVISED TO RETURN FOR COLLECTION. Performed By: #### 6 399, 496, 718, 90993 #### [facility] [address], [address] [place] [address] Performance Specialist: Juan Meraz MD PTH, INTACT WITHOUT CALCIUMo [...] Performed By: #### 6 399, 496, 718, 45030 #### [facility] [address], [address] [place] [address] Performance Specialist: Juan Meraz MD VITAMIN D,25-OH,TOTAL,IAon 0 08-23-2021 [...] D, (D2,D3), LC/MS/MS is recommended: order code 89487 (patients >2yrs). See Note 1 Note 1 For additional information, please refer to http://education.[employer]/faq/HDS239 (This link is being provided for informational/ educational purposes only.) Performed By: #### 6 399, 496, 718, 19183 #### [facility] [address] [facility], [address] [place] [address] Performance Specialist: Juan Meraz MD CBC W MANUAL DIFFon 07-06-19 22 ATYPICAL LYMPH # Normal [facility] Comment on above: Performed By: #### C SAUMYAMAN ####[facility] Ohbszohuse67[address] [place] [address]Dr. Biancalan Reagan ATYPICAL LYMPH % Normal [facility] Comment on above: Performed By: #### C BCMAN ####[facility] Rosekbcvwg80[address] [place] [address]Dr. Yilan Reagan BAND # 0.1 103/ul Normal 0.0-0.3 [facility] Comment on above: Performed By: #### C BCMAN ####[facility] Zmwdkahoqt1884 [place] [address]Dr. Yilan Reagan BAND % 1 % Normal 0-5 [facility] Comment on above: Performed By: #### C BCMAN ####[facility] Rttnbqtudg6871 [place] [address]Dr. Yilan Reagan BASOM # 0.00 103/ul Normal 0.00-0.10 [facility] Comment on above: Performed By: #### C BCMAN ####[facility] Kuzozlxbms8431 [place] [address]Dr. Yilan Reagan BASOM % 0.0 % Critically low 0.2-2.0 [facility] Comment on above: Performed By: #### C BCMAN ####[facility] Vrmhncrpxd6038 [place] [address]Dr. Yilan Reagan BLAST # Normal [facility] Comment on above: Performed By: #### C BCMAN ####[facility] Hcsakohfkf3613 [place], [place] [address]Fh. Anjali Reagan BLAST % Normal [facility] Comment on above: Performed By: #### C CORI ####[facility] Gtagwkpvcf0586 [place] [phone]. Anjali Reagan CORRECTED WBC Normal 4.0-11.[address] [facility] Comment on above: Performed By: #### C CORI ####[facility] Rjihdtxske9800 [place] [phone]. Anjali Reagan EOS # 0.16 103/ul Normal 0.00-0.70 [facility] Comment on above: Performed By: #### C CORI ####[facility] Shxubdpero2421 [place] [address]Dr. Anjali Reagan EOS% 2.0 % Normal 0.9-7.0 [facility] Comment on above: Performed By: #### C CORI ####[facility] Bnzsrwuhsu8580 [place] [phone]. Anjali Reagan HCT 35.3 % Critically low 42.0-54.0 [facility] Comment on above: Performed By: #### C CORI ####[facility] Ytrhdbioly8778 [place] [id number]. Anjali Reagan HGB 11.4 g/dl Critically low 14.0-18.0 [facility] Comment on above: Performed By: #### C CORI ####[facility] Heaebhoclo9498 [place] [id number]. Ajnali Reagan LYMPHM # 0.70 103/ul Critically low 1.20-3.80 [facility] Comment on above: Performed By: #### C CORI ####[facility] Yidgwumnou1293 [place] [id number]. Anjali Reagan LYMPHM% 9.0 % Critically low 20.5-60.0 [facility] Comment on above: Performed By: #### C CORI ####[facility] Jlkdjskqph7621 [place] [phone]. Anjali Reagan MCH 27.5 pg Normal 25.9-34.0 [facility] Comment on above: Performed By: #### C CORI ####[facility] Gsuempjqzc7557 [place] [phone]. Anjali Reagna MCHC 32.3 g/dl Normal 29.9-35.2 [facility] Comment on above: Performed By: #### C CORI ####[facility] Sfznnlwyup7993 [place] [phone]. Anjali Reagan MCV 85.3 fL Normal 80.0-94.0 [facility] Comment on above: Performed By: #### C CORI ####[facility] Jomlfcwnim4206 [place] [id number]. Anjali Reagan METAMYELOCYTE # Normal [facility] Comment on above: Performed By: #### C CORI ####[facility] Smvohncgud6741 [place] [phone]. Anjali Reagan METAMYELOCYTE % Normal [facility] Comment on above: Performed By: #### C CORI ####[facility] Yllmtspjxw[address] [place], [place] [address]Dr. Anjali Reagan MONOM# 1.09 103/ul Critically high 0.30-0.80 [facility] Comment on above: Performed By: #### C CORI ####[facility] Kqtqlfqenl3494 [place] [id number]. Anjali Reaagn MONOM% 14.0 % Critically high 1.7-12.0 [facility] Comment on above: Performed By: #### C CORI ####[facility] Wfwyaghlnf2252 [place] [id number]. Anjali Reagan MPV 9.6 fL Normal 9.5-13.5 [facility] Comment on above: Performed By: #### C CORI ####[facility] Xlgyccreet8047 [place] [id number]. Anjali Reagan MYELOCYTE # Normal [facility] Comment on above: Performed By: #### C CORI ####[facility] Coybylasim2446 [place] [phone]. Anjali Reagan MYELOCYTE % Normal [facility] Comment on above: Performed By: #### C BCMAN ####[facility] Upsidcznhy6353 [place], [place] [address]Pu. Anjali Reagan NRBC Normal [facility] Comment on above: Performed By: #### C BCMAN ####[facility] Xdsgdmnsyx6599 [place], [place] [address]Mi. Anjali Reagan PLT 119 103/ul Critically low 150-450 [facility] Comment on above: Performed By: #### C BCMAN ####[facility] Dlnqgxtglj3635 [place], [place] [address]Yt. Anjali Reagan RBC 4.14 106/ul Critically low 4.70-6.10 [facility] Comment on above: Performed By: #### C BCMAN ####[facility] Lcxioqnrxj7687 [place], [place] [address]Mc. Anjali Reagan RDW 16.1 % Critically high 11.0-15.0 [facility] Comment on above: Performed By: #### C BCMAN ####[facility] Ywfxdcltze9953 [place], [place] [address]Vg. Anjali Reagan SEG # 5.77 103/ul Normal 1.40-6.50 [facility] Comment on above: Performed By: #### C BCMAN ####[facility] Domfxeezfs5070 [place], [place] [address]Up. Anjali Reagan SEG % 74.0 % Normal 43.0-75.0 [facility] Comment on above: Performed By: #### C BCMAN ####[facility] Chqzrfuoop0373 [place], [place] [address]Zp. Anjali Reagan WBC 7.8 103/ul Normal 4.0-11.0 [facility] Comment on above: Performed By: #### C BCMAN ####[facility] Qscewvhuzb0051 [place] [phone]. Anjali Reagan CRPon 07-05-2021 CRP [Mass/Vol] mg/L Critically high <=1.0 [facility] Comment on above: Performed By: #### C RP, BMP ####[facility] Bgvcfcvhok0646 [place] [address]Dr. Anjali Reagan PROF CHEM 8 (BAS METB)on Anion gap [Moles/Vol] 10.1 mmol/L Normal [facility] Comment on above: Performed By: #### C RP, BMP ####[facility] Ankwnxurtf4524 [place] [address]Dr. Anjali Tez Calcium [Mass/Vol] 9.6 mg/dL Normal 8.5-10.1 [facility] Comment on above: Performed By: #### C RP, BMP ####[facility] Lgmgoshebe[address] [place], [place] [address]Dr. Anjali Reagan Chloride [Moles/Vol] 100 mmol/L Normal 98-107 [facility] Comment on above: Performed By: #### C RP, BMP ####[facility] Qgiocqljkg[address] [place], [place] [address]Dr. Anjali Reagan CO2 [Moles/Vol] 30.4 mmol/L Critically high 22.0-30.0 [facility] Comment on above: Performed By: #### C RP, BMP ####[facility] Itgdyrwaze57[address] [place], [place] [address]Dr. Biancaramona Tez Creatinine [Mass/Vol] 1.49 mg/dL Critically high 0.66-1.25 [facility] Comment on above: Performed By: #### C RP, BMP ####[facility] Vqmhwmfeje25[address] [place], [place] [address]Dr. Anjali Reagan EGFR-AF MACANESE 58 mL/min/1.73m2 Critically low >=60 [facility] Comment on above: Performed By: #### C RP, BMP ####[facility] Idcuopbrtd406[address] [place], [place] [address]Dr. Anjali Reagan EGFR-NON AF MACANESE 48 mL/min/1.73m2 Critically low >=60 [facility] Comment on above: Performed By: #### C RP, BMP ####[facility] Enrgtogdvu7429[address] [place], [place] [address]Dr. Anjali Reagan Glucose [Mass/Vol] 191 mg/dL Critically high 74-106 [facility] Comment on above: Performed By: #### C RP, BMP ####[facility] [address]qsawdj6[address] [place] [address]Dr. Anjali Reagan Potassium [Moles/Vol] 4.5 mmol/L Normal 3.4-5.0 [facility] Comment on above: Performed By: #### C RP, BMP ####[facility] Zabmcmocrb458[address] [place], [place] [address]Dr. Anjali Reagan Sodium [Moles/Vol] 136 mmol/L Critically low 137-145 [facility] Comment on above: Performed By: #### C RP, BMP ####[facility] Vouzljrbvi797[address] [place], [place] [address]Dr. Anjali Reagan Urea nitrogen [Mass/Vol] 33.0 mg/dL Critically high 7.0-18 .0 [facility] Comment on above: Performed By: #### C RP, BMP ####[facility] Bytrjvkcat138[address] [place], [place] [address]Dr. Anjali Reagan Urea nitrogen/Creatinine [Mass ratio] 22.1 mg/mg Normal [facility] Comment on above: Performed By: #### C RP, BMP ####[facility] Ekkzkstbdt009[address] [place], [place] [address]Dr. Anjali Reagan SED RATE [facility] 2021 SED RATE 26 mm/hr Critically high <=20 [facility] Comment on above: Performed By: #### S EDR ####[facility] Fzmnqwezyw67[address] [place], [place] [address]Dr. Anjali Reagan XR ANKLE RT MIN 3 VIEWSon XR ANKLE RT MIN 3 VIEWS Normal [facility] CT ANKLE RT WO CONon 022 CT ANKLE RT WO CON Normal [facility] CULTURE OTHERon 05-19-2021 CULTURE OTHER Normal [facility] Comment on above: Performed By: #### O THCX ####[facility] Ekmrodwgyt59[address] [place], [place] [address]Dr. Biancaramona Reagan CULTURE ANAEROBICon 05-16-19 CULTURE ANAEROBIC Specimen Comments: RIGHT FOOT ABSCESS Culture Observations: NO GROWTH OF ANAEROBES AT 72 HOURS. Normal [facility] Comment on above: Performed By: #### A NACX ####[facility] [address]bsiaxiwuy[address] [place] [address]Dr. Anjali Reagan GRAM STAINon 05-16-2021 DIPHTHEROIDS Normal [facility] Comment on above: Performed By: #### G STAIN ####[facility] Gnargxudtf5110[address] [place], [place] [address]Dr. Anjali Reagan EPITHELIALS Normal [facility] Comment on above: Performed By: #### G STAIN ####[facility] Yqicohoxoa020[address] [place], [place] [address]Dr. Anjali Reagan FUNGAL ELEMENTS Normal [facility] Comment on above: Performed By: #### G STAIN ####[facility] Smvsclydgi174[address] [place], [place] [address]Dr. Anjali Reagan GRAM NEG BACILLI MANY Normal [facility] Comment on above: Performed By: #### G STAIN ####[facility] Uedsfebxru335[address] [place], [place] [address]Dr. Anjali Reagan GRAM NEG DIPPLOCOCCI Normal [facility] Comment on above: Performed By: #### G STAIN ####[facility] Kpcafgckgt456[address] [place], [place] [address]Dr. Anjali Reagan GRAM POS BACILLI Normal [facility] Comment on above: Performed By: #### G STAIN ####[facility] Stksjpptlv[address] [place], [place] [address]Dr. Anjali Reagan GRAM POSITIVE COCCI Normal [facility] Comment on above: Performed By: #### G STAIN ####[facility] Oxokknzcie[address] [place] [address]Dr. Anjali Reagan GRAM STAIN SOURCE RIGHT FOOT Normal [facility] Comment on above: Performed By: #### G STAIN ####[facility] Nsmfwtdpmx6827[address] [place], [place] [address]Dr. Anjali Reagan GS_DIPTH Normal [facility] Comment on above: Performed By: #### G STAIN ####[facility] [address] [place], [place] [address]Vb. Anjali Reagan WBC MANY Normal [facility] Comment on above: Performed By: #### G STAIN ####[facility] Mluszqqpnp4117 [place], [place] [address]Hp. Anjali Reagan XR ANKLE RT MIN 3 VIEWSon XR ANKLE RT MIN 3 VIEWS Normal [facility] COMPREHENSIVE METABOLIC PANE Ray 04-16-2021 Albumin [Mass/Vol] 4.6 g/dL Normal 3.6-5.1 [facility] Comment on above: Performed By: #### 7 600, 496, 81686 #### [facility] [place] [address] Performance Specialist: Juan Meraz MD Albumin/Globulin [Mass ratio] 1.7 {ratio} Normal 1.0-2.5 [facility] Comment on above: Performed By: #### 7 600, 496, 56223 #### [facility] [place] [address] Performance Specialist: Juan Meraz MD ALP [Catalytic activity/Vol] 119 U/L Normal 35-144 [facility] Comment on above: Performed By: #### 7 600, 496, 35004 #### [facility] [place] [address] Performance Specialist: Juan Meraz MD ALT [Catalytic activity/Vol] 19 U/L Normal 9-46 [facility] Comment on above: Performed By: #### 7 600, 496, 45841 #### [facility] [place] [address] Performance Specialist: Juan Meraz MD AST [Catalytic activity/Vol] 20 U/L Normal 10-35 [facility] Comment on above: Performed By: #### 7 600, 496, 08885 #### [facility] [place] [address] Performance Specialist: Juan Meraz MD Bilirubin [Mass/Vol] 0.6 mg/dL Normal 0.2-1.2 [facility] Comment on above: Performed By: #### 7 600, 496, 45953 #### [facility] [place] [address] Performance Specialist: Juan Meraz MD Calcium [Mass/Vol] 9.9 mg/dL Normal 8.6-10.3 [facility] Comment on above: Performed By: #### 7 600, 496, 48523 #### [facility] [place] [address] Performance Specialist: Juan Meraz MD Chloride [Moles/Vol] 102 mmol/L Normal 98-110 [facility] Comment on above: Performed By: #### 7 600, 496, 05553 #### [facility] [place] [address] Performance Specialist: Juan Meraz MD CO2 [Moles/Vol] 28 mmol/L Normal 20-32 [facility] Comment on above: Performed By: #### 7 600, 496, 07606 #### [facility] [place] [address] Performance Specialist: Juan Meraz MD Creatinine [Mass/Vol] 1.59 mg/dL High 0.70-1.[address] [facility] Comment on above: Result Comment: For patients >49 years of age, the reference limit for Creatinine is approximately 13% higher for people identified as -Lithuanian. Performed By: #### 7 600, 496, 66527 #### [facility] [place] [address] Performance Specialist: Juan Meraz MD eGFR NON-AFR. MACANESE 46 mL/min/1.73m2 Low > OR = 60 [facility] Comment on above: Performed By: #### 7 600, 496, 86641 #### [facility] [place] [address] Performance Specialist: Juan Meraz MD GFR/1.73 sq M.predicted among blacks MDRD (S/P/Bld) [Vol rate/Area] 53 mL/min/{1.73_m2} Low > OR = 60 [facility] Comment on above: Performed By: #### 7 600, 496, 95568 #### [facility] [place] [address] Performance Specialist: Juan Meraz MD Globulin (S) [Mass/Vol] 2.7 g/dL Normal 1.9-3.7 [facility] Comment on above: Performed By: #### 7 600, 496, 68042 #### [facility] [place] [address] Performance Specialist: Juan Meraz MD Glucose [Mass/Vol] 176 mg/dL High 65-139 [facility] Comment on above: Result Comment: Non-fasting reference interval For someone without known diabetes, a glucose value >125 mg/dL indicates that they may have diabetes and this should be confirmed with a follow-up test. Performed By: #### 7 600, 496, 77893 #### [facility] [address], [address] [place] [address] Performance Specialist: Juan Meraz MD Potassium [Moles/Vol] 4.2 mmol/L Normal 3.5-5.[address] [facility] Comment on above: Performed By: #### 7 600, 496, 12614 #### [facility] [place] [address] Performance Specialist: Juan Meraz MD Protein [Mass/Vol] 7.3 g/dL Normal 6.1-8.1 [facility] Comment on above: Performed By: #### 7 600, 496, 49955 #### [facility] [place] [address] Performance Specialist: Juan Meraz MD Sodium [Moles/Vol] 138 mmol/L Normal 135-146 [facility] Comment on above: Performed By: #### 7 600, 496, 27205 #### [facility] [place] [address] Performance Specialist: Juan Meraz MD Urea nitrogen [Mass/Vol] 48 mg/dL High 7- [facility] Comment on above: Performed By: #### 7 600, 496, 78511 #### [facility] [address], [address] [place] [address] Performance Specialist: Juan Meraz MD Urea nitrogen/Creatinine [Mass ratio] 30 mg/mg High 6- [facility] Comment on above: Performed By: #### 7 600, 496, 66230 #### [facility] [address], [address] [place] [address] Performance Specialist: Juan Meraz MD HEMOGLOBIN A1con 04-16-2021 HEMOGLOBIN [...] children. Performed By: #### 1 0165, 496, 965 #### [facility] [address], [address] [place] [address] Performance Specialist: Juan Meraz MD LIPID PANEL, STANDARDon 04-02 Cholesterol [Mass/Vol] 108 mg/dL Normal <200 [facility] Comment on above: Order Comment: FASTI NG:NO FASTING: NO Performed By: #### 7 600, 496, 04779 #### [facility] [address], [address] [place] [address] Performance Specialist: Juan Meraz MD Cholesterol in HDL [Mass/Vol] 47 mg/dL Normal > OR = 40 [facility] Comment on above: Order Comment: FASTI NG:NO FASTING: NO Performed By: #### 7 600, 496, 76069 #### [facility] [place] [address] Performance Specialist: Juan Meraz MD Cholesterol in LDL [Mass/Vol] [...] LDL-C. Camden SS et al. TABITHA. 2013;310(19): 0697-5557 (http://education.Ikonopedia.ExpertFile/faq/YSI288) Performed By: #### 7 600, 496, 65439 #### [facility] [place] [address] Performance Specialist: Juan Meraz MD Cholesterol.total/Choles terol in HDL [Mass ratio] 2.3 {ratio} Normal <5.0 [facility] Comment on above: Order Comment: FASTI NG:NO FASTING: NO Performed By: #### 7 600, 496, 36980 #### [facility] [place] [address] Performance Specialist: Juan Meraz MD NON HDL CHOLESTEROL 61 mg/dL (calc) Normal <130 [facility] Comment on above: Order Comment: FASTI NG:NO FASTING: NO Result Comment: For patients with diabetes plus 1 major ASCVD risk factor, treating to a non-HDL-C goal of <100 mg/dL (LDL-C of <70 mg/dL) is considered a therapeutic option. Performed By: #### 7 600, 496, 47212 #### [facility] [place] [address] Performance Specialist: Juan Meraz MD Triglyceride [Mass/Vol] 102 mg/dL Normal <150 [facility] Comment on above: Order Comment: FASTI NG:NO FASTING: NO Performed By: #### 7 600, 496, 37037 #### [facility] [address], [address] [place] [address] Performance Specialist: Juan Meraz MD CT ANKLE RT WO CONon 022 CT ANKLE RT WO CON Normal [facility] XR ANKLE RT MIN 3 VIEWSon XR ANKLE RT MIN 3 VIEWS Normal [facility] ACID FAST SMEAR AND CXon Acid Fast Culture Negative Normal [facility] Comment on above: Result Comment: No a rj fast bacilli isolated after 6 weeks. Performed By: #### A FB ####[facility] [address]cl[address] [place] [address]Dr. Biancalan Reagan Acid Fast Smear Negative Normal [facility] Comment on above: Performed By: #### A FB ####[facility] Plcxfojnqj[address] [place], [place] [address]Dr. Biancalan [employer] Specimen Processing Direct Inoculation [facility] Comment on above: Performed By: #### A FB ####[facility] Kmdwdnvfar[address] [place], [place] [address]Dr. Anjali Reaagn ACID FAST SMEAR AND CXon Acid Fast Culture Negative [facility] Comment on above: Result Comment: No a rj fast bacilli isolated after 6 weeks. Performed By: #### A FB ####[facility] Ubhrhifwaj[address] [place], [place] [address]Dr. Biancalan Reagan Acid Fast Smear Negative Normal [facility] Comment on above: Performed By: #### A FB ####[facility] Xtwtrosono[address] [place], [place] [address]Dr. Anjali [employer] Specimen Processing Tissue Grinding [facility] Comment on above: Performed By: #### A FB ####[facility] Vptjwjirac[address] [place], [place] [address]Dr. Biancalan [employer] Specimen Processing Direct Inoculation [facility] Comment on above: Performed By: #### A FB ####[facility] Whphlxlfxe96[address] [place], [place] [address]Dr. Anjali Reagan FUNGAL CULTUREon 03-15-2021 Fungus (Mycology) Culture Final report Normal [facility] Comment on above: Performed By: #### C XFUN ####[facility] Fzeravkvcq[address] [place], [place] [address]Dr. Anjali Reagan Fungus Stain Final report Normal [facility] Comment on above: Performed By: #### C XFUN ####[facility] Hbqmjcsvdg539[address] [place], [place] [address]Dr. Anjali Reagan Result 1 Comment Normal [facility] Comment on above: Result Comment: MIRIAN/ Calcofluor preparation: no fungus observed. Performed By: #### C XFUN ####[facility] Ndnagoxdtp023[address] [place], [place] [address]Dr. Anjali Reagan Result Comment: No y east or mold isolated after 4 weeks. FUNGAL CULTUREon 03-09-2021 Fungus (Mycology) Culture Final report Normal [facility] Comment on above: Performed By: #### C XFUN ####[facility] Jlzfsznyog[address] [place], [place] [address]Dr. Anjali Reagan Fungus Stain Final report Normal [facility] Comment on above: Performed By: #### C XFUN ####[facility] Jgrovquxoz[address] [place], [place] [address]Dr. Anjali Reagan Result 1 Comment Normal [facility] Comment on above: Result Comment: MIRIAN/ Calcofluor preparation: no fungus observed. Performed By: #### C XFUN ####[facility] Wmqlltcdnv170[address] [place], [place] [address]Dr. Anjali Reagan Result Comment: No y east or mold isolated after 4 weeks. XR ANKLE RT MIN 3 VIEWSon XR ANKLE RT MIN 3 VIEWS Normal [facility] Otol[facility]ology Office/Clinic Noteon 02-28-2021 Otolaryngology Office/Clinic [...] time. They were unable to travel to [place] as he required another right ankle surgery. [...] Dr. Freed. Previous pathology by physician in [place] about 1 year ago. PMHx of multiple [...] postauricular m (more content not included)... Normal [facility] CBC W MANUAL DIFFon 02-13-20 21 ATYPICAL LYMPH # Normal [facility] Comment on above: Performed By: #### C CORI ####[facility] V[address]moqe[address] [place] [address]Dr. Anjali Reagan ATYPICAL LYMPH % Normal [facility] Comment on above: Performed By: #### C CORI ####[facility] Lmzwmlfocy6084 [place] [address]Dr. Anjali Reagan BAND # 0.3 103/ul Normal 0.0-0.3 [facility] Comment on above: Performed By: #### C CORI ####[facility] Uljfsenkky[address] [place], [place] [address]Dr. Anjali Reagan BAND % 4 % Normal 0-5 [facility] Comment on above: Performed By: #### C CORI ####[facility] Dwruuxbmkd029[address] [place], [place] [address]Dr. Anjali Reagan BASOM # 0.00 103/ul Normal 0.00-0.10 [facility] Comment on above: Performed By: #### C CORI ####[facility] Zmxxkwptlo[address] [place], [place] [address]Dr. Anjali Reagan BASOM % 0.0 % Critically low 0.2-2.0 [facility] Comment on above: Performed By: #### C CORI ####[facility] Dvnqcmbgor464[address] [place], [place] [address]Dr. Anjali Reagan BLAST # Normal [facility] Comment on above: Performed By: #### C CORI ####[facility] Haxmjkxpbh[address] [place], [place] [address]Dr. Anjali Reagan BLAST % Normal [facility] Comment on above: Performed By: #### C CORI ####[facility] Pjazzmjioo976[address] [place], [place] [address]Dr. Anjali Reagan CORRECTED WBC Normal 4.0-11.[address] [facility] Comment on above: Performed By: #### C CORI ####[facility] Kysiulgsnh185[address] [place], [place] [address]Dr. Anjali Reagan EOS # 0.28 103/ul Normal 0.00-0.70 [facility] Comment on above: Performed By: #### C CORI ####[facility] [address]qmpxf4[address] [place], [place] [address]Rf. Anjali Reagan EOS% 4.0 % Normal 0.9-7.0 [facility] Comment on above: Performed By: #### C CORI ####[facility] Ovtnxreion[address] [place] [id number]. Anjali Reagan HCT 28.5 % Critically low 42.0-54.0 [facility] Comment on above: Performed By: #### C CORI ####[facility] Aivybsoeoq6186 [place] [phone]. Anjali Reagan HGB 8.6 g/dl Critically low 14.0-18.0 [facility] Comment on above: Performed By: #### C CORI ####[facility] Jtolmdajki3409 [place] [address]Dr. Anjali Reagan HYPOCHROMASIA 3+ Normal [facility] Comment on above: Performed By: #### C CORI ####[facility] Exxgqsblbj5424 [place] [phone]. Anjali Reagan LYMPHM # 0.57 103/ul Critically low 1.20-3.80 [facility] Comment on above: Performed By: #### C CORI ####[facility] Ckduqclktc2567 [place] [phone]. Anjali Reagan LYMPHM% 8.0 % Critically low 20.5-60.0 [facility] Comment on above: Performed By: #### C CORI ####[facility] Oiwhtotftb8279 [place] [phone]. Anjali Reagan MCH 25.4 pg Critically low 25.9-34.0 [facility] Comment on above: Performed By: #### C CORI ####[facility] Guxymirjqx3748 [place] [phone]. Anjali Reagan MCHC 30.2 g/dl Normal 29.9-35.2 [facility] Comment on above: Performed By: #### C CORI ####[facility] Uhepviiogc5409 [place] [address]Dr. Anjali Reagan MCV 84.1 fL Normal 80.0-94.0 [facility] Comment on above: Performed By: #### C CORI ####[facility] Wxlvgetija7598 [place] [phone]. Anjali Reagan METAMYELOCYTE # Normal [facility] Comment on above: Performed By: #### C CORI ####[facility] Arrzhfcwhs[address] [place], [place] [address]Dr. Anjali Reagan METAMYELOCYTE % Normal [facility] Comment on above: Performed By: #### C CORI ####[facility] Vskmbrsday404[address] [place], [place] [address]Dr. Anjali Reagan MICROCYTOSIS 2+ Normal [facility] Comment on above: Performed By: #### C CORI ####[facility] Nivgklbije08[address] [place], [place] [address]Dr. Anjali Reagan MONOM# 0.14 103/ul Critically low 0.30-0.80 [facility] Comment on above: Performed By: #### C CORI ####[facility] Vfiuybqllf794[address] [place], [place] [address]Dr. Anjali Reagan MONOM% 2.0 % Normal 1.7-12.0 [facility] Comment on above: Performed By: #### C CORI ####[facility] Ywomkgbskw729[address] [place], [place] [address]Dr. Anjali Reagan MPV 9.3 fL Critically low 9.5-13.5 [facility] Comment on above: Performed By: #### C CORI ####[facility] Snxvfowlmd397[address] [place], [place] [address]Dr. Anjali Reagan MYELOCYTE # Normal [facility] Comment on above: Performed By: #### C CORI ####[facility] Jvwsxqxhgg7[address] [place], [place] [address]Dr. Yilan Reagan MYELOCYTE % Normal [facility] Comment on above: Performed By: #### C CORI ####[facility] Offolbgfpx9918 [place] [phone]. Anjali Reagan NRBC 1 Normal [facility] Comment on above: Performed By: #### C CORI ####[facility] Rfcownsvuf7531 [place] [phone]. Anjali Reagan PLT 186 103/ul Normal 150-450 [facility] Comment on above: Performed By: #### C CORI ####[facility] Uvfhfvkbgt6944 [place] [phone]. Anjali Reagan RBC 3.39 106/ul Critically low 4.70-6.10 [facility] Comment on above: Performed By: #### C CORI ####[facility] Pbcdxzasxa8977 [place] [phone]. Anjali Reagan RDW 18.8 % Critically high 11.0-15.0 [facility] Comment on above: Performed By: #### C CORI ####[facility] Ndnbohumfv9001 [place] [phone]. Anjali Reagan SEG # 5.82 103/ul Normal 1.40-6.50 [facility] Comment on above: Performed By: #### C CORI ####[facility] Cyrptalhlc1532 [place] [phone]. Anjali Reagan SEG % 82.0 % Critically high 43.0-75.0 [facility] Comment on above: Performed By: #### C CORI ####[facility] Idcwmzkmel7527 [place] [phone]. Anjali Reagan WBC 7.1 103/ul Normal 4.0-11.0 [facility] Comment on above: Performed By: #### C CORI ####[facility] Jhaqgwpujm0334 [place] [phone]. Anjali Reagan POINT OF CARE GLUCOSEon 11 Glucose [Mass/Vol] 175 mg/dL Critically high 74-106 [facility] Comment on above: Performed By: #### P OCGLUC ####[facility] Tndnpucgib0208 [place] [address]Dr. Anjali Reagan PROF 14(COMP METB)on 021 Albumin [Mass/Vol] 2.4 g/dL Critically low 3.5-5.0 [facility] Comment on above: Performed By: #### C MP ####[facility] Tupcxifvqz2867 [place] [address]Dr. Anjali Reagan Albumin/Globulin [Mass ratio] 0.6 {ratio} Normal [facility] Comment on above: Performed By: #### C MP ####[facility] Mcjuntrprp[address] [place], [place] [address]Dr. Anjali Reagan ALP [Catalytic activity/Vol] 93 U/L Normal 38-126 [facility] Comment on above: Performed By: #### C MP ####[facility] Nizkyqegcg622[address] [place], [place] [address]Dr. Anjali Reagan ALT [Catalytic activity/Vol] 18 U/L Critically low 21-72 [facility] Comment on above: Performed By: #### C MP ####[facility] Cpeyyefvhn[address] [place], [place] [address]Dr. Anjali Reagan Anion gap [Moles/Vol] 12.5 mmol/L Normal [facility] Comment on above: Performed By: #### C MP ####[facility] Cuvafgtfqu[address] [place], [place] [address]Dr. Anjali Reagan AST [Catalytic activity/Vol] 30 U/L Normal 17-59 [facility] Comment on above: Performed By: #### C MP ####[facility] Egdgljigfk93[address] [place], [place] [address]Dr. Anjali Reagan Bilirubin [Mass/Vol] 0.5 mg/dL Normal 0.2-1.3 [facility] Comment on above: Performed By: #### C MP ####[facility] Yjugzfqzkk9[address] [place], [place] [address]Dr. Anjali Reagan Calcium [Mass/Vol] 8.5 mg/dL Normal 8.4-10.2 [facility] Comment on above: Performed By: #### C MP ####[facility] Bubangtjff[address] [place] [address]Dr. Anjali Reagan Chloride [Moles/Vol] 103 mmol/L Normal 98-107 [facility] Comment on above: Performed By: #### C MP ####[facility] Hstxvkxwhu7309 [place] [address]Dr. Anjali Reagan CO2 [Moles/Vol] 25.8 mmol/L Normal 22.0-30.[address] [facility] Comment on above: Performed By: #### C MP ####[facility] Dydymiqnai3577 [place] [address]Dr. Anjali Reagan Creatinine [Mass/Vol] 1.09 mg/dL Normal 0.66-1.25 [facility] Comment on above: Performed By: #### C MP ####[facility] [address]jvrlmdh[address] [place] [place], [place] [address]Dr. Anjali Reagan EGFR-AF MACANESE >60 Normal >=[address] [facility] Comment on above: Performed By: #### C MP ####[facility] Nsgomypzbc[address] [place], [place] [address]Dr. Anjali Reagan EGFR-NON AF MACANESE >60 Normal >=60 [facility] Comment on above: Performed By: #### C MP ####[facility] Tuxrhspxpo263[address] [place], [place] [address]Dr. Anjali Reagan Globulin (S) [Mass/Vol] 3.7 g/dL Normal [facility] Comment on above: Performed By: #### C MP ####[facility] Sdsvgbtyba595[address] [place], [place] [address]Dr. Anjali Reagan Glucose [Mass/Vol] 165 mg/dL Critically high 74-106 [facility] Comment on above: Performed By: #### C MP ####[facility] Afuftbcppe0800[address] [place], [place] [address]Dr. Anjali Reagan Potassium [Moles/Vol] 4.3 mmol/L Normal 3.4-5.0 [facility] Comment on above: Performed By: #### C MP ####[facility] [address]hw[address] [place] [address]Dr. Anjali Reagan Protein [Mass/Vol] 6.1 g/dL Normal 6.1-8.2 [facility] Comment on above: Performed By: #### C MP ####[facility] Icprsrpfmp68[address] [place] [address]Dr. Anjali Tez Sodium [Moles/Vol] 137 mmol/L Normal 137-[address] [facility] Comment on above: Performed By: #### C MP ####[facility] Opcnqsrwiq7[address] [place], [place] [address]Dr. Anjali Tez Urea nitrogen [Mass/Vol] 24.0 mg/dL Critically high 9.0-20 .0 [facility] Comment on above: Performed By: #### C MP ####[facility] Iyhbxacyrc439[address] [place], [place] [address]Dr. Anjali Reagan Urea nitrogen/Creatinine [Mass ratio] 22.0 mg/mg Normal [facility] Comment on above: Performed By: #### C MP ####[facility] Rrxjvlcsoa783[address] [place], [place] [address]Dr. Anjali Tez ALBUMINon 02-11-2021 Albumin [Mass/Vol] 2.8 g/dL Critically low 3.5-5.0 [facility] Comment on above: Performed By: #### P REALB, ALB ####[facility] Xqerwkpynw124[address] [place], [place] [address]Dr. Anjali Tez CBC AUTO DIFFon 02-11-2021 BASO # 0.0 103/ul Normal 0.0-0.1 [facility] Comment on above: Performed By: #### C BC ####[facility] Ngngkxwypk915[address] [place], [place] [address]Dr. Biancaramona Reagan Basophils/100 WBC (Bld) 0.5 % Normal 0.2-2.0 [facility] Comment on above: Performed By: #### C BC ####[facility] Hdihnwpqmc4445[address] [place], [place] [address]Dr. Anjali Reagan EO # 0.5 103/ul Normal 0.0-0.7 [facility] Comment on above: Performed By: #### C BC ####[facility] Jnxfrpcoxc65[address] [place] [phone]. Anjali Reagan Eosinophils/100 WBC (Bld) 7.4 % Critically high 0.9-7.0 [facility] Comment on above: Performed By: #### C BC ####[facility] Rpoloopnbc0547 [place] [phone]. Anjali Reagan Erythrocyte distribution width (RBC) [Ratio] 18.7 % Critically high 11.0-15.0 [facility] Comment on above: Performed By: #### C BC ####[facility] Ycciusdzde35[address] [place] [address]Dr. Anjali Reagan Hematocrit (Bld) [Volume fraction] 30.7 % Critically low 42.0-54.0 [facility] Comment on above: Performed By: #### C BC ####[facility] Zwuxdstudz3301[address] [place], [place] [address]Dr. Anjali Reagan Hemoglobin (Bld) [Mass/Vol] 9.5 g/dL Critically low 14.0-18.0 [facility] Comment on above: Performed By: #### C BC ####[facility] Vpkimwadpp185[address] [place], [place] [address]Dr. Anjali Reagan IG # 0.05 10e3/ul Critically high 0.00-0.03 [facility] Comment on above: Performed By: #### C BC ####[facility] Thikpxlqzi4526[address] [place], [place] [address]Dr. Anjali Reagan IG % 0.8 % Critically high 0.0-0.5 [facility] Comment on above: Performed By: #### C BC ####[facility] Rblxsbpxgy298257 [address] [place], [place] [address]Dr. Anjali Reagan LYMPH # 0.6 103/ul Critically low 1.2-3.8 [facility] Comment on above: Performed By: #### C BC ####[facility] Maerocussy44[address] [place] [phone]. Anjali Reagan Lymphocytes/100 WBC (Bld) 8.5 % Critically low 20.5-60.0 [facility] Comment on above: Performed By: #### C BC ####[facility] Zneqwzljbb2225 [place] [address]DrVeronica Reagan MANUAL DIFF REQ NO Normal [facility] Comment on above: Performed By: #### C BC ####[facility] Hzvdbhnqba9182 [place] [phone]. Anjali Reagan MCH (RBC) [Entitic mass] 25.3 pg Critically low 25.9-34 .0 [facility] Comment on above: Performed By: #### C BC ####[facility] Jtlfmjodow38[address] [place] [address]Dr. Anjali Reagan MCHC (RBC) [Mass/Vol] 30.9 g/dL Normal 29.9-35.2 [facility] Comment on above: Performed By: #### C BC ####[facility] Tgnolevhhc2933[address] [place], [place] [address]Dr. Anjali Reagan MCV (RBC) [Entitic vol] 81.6 fL Normal 80.0-94.0 [facility] Comment on above: Performed By: #### C BC ####[facility] Rtcxflkuub3439[address] [place], [place] [address]DrVeronica Reagan MONO # 0.8 103/ul Normal 0.3-0.8 [facility] Comment on above: Performed By: #### C BC ####[facility] Plzaqxflqv527[address] [place], [place] [address]DrVeronica Reagan Monocytes/100 WBC (Bld) 12.2 % Critically high 1.7-12. 0 [facility] Comment on above: Performed By: #### C BC ####[facility] Hgsfibkxcy668[address] [place], [place] [address]DrVeronica Reagan NEUT # 4.6 103/ul Normal 1.4-6.5 [facility] Comment on above: Performed By: #### C BC ####[facility] Azphdykfvx6917[address] [place], [place] [address]DrVeronica Reagan Neutrophils/100 WBC (Bld) 70.6 % Normal 43.0-75.0 [facility] Comment on above: Performed By: #### C BC ####[facility] Zaosbihoay6406 [place] [phone]. Anjali Reagan Platelet mean volume (Bld) [Entitic vol] 9.6 fL Normal 9.5-13.5 [facility] Comment on above: Performed By: #### C BC ####[facility] Pynfhiuxfr9168 [place] [phone]. Anjali Tez PLT 205 103/ul Normal 150-450 [facility] Comment on above: Performed By: #### C BC ####[facility] Exnuatgwjx2344 [place] [phone]. Biancaramona Tez RBC 3.76 106/ul Critically low 4.70-6.10 [facility] Comment on above: Performed By: #### C BC ####[facility] Srxaiaegmd0052 [place] [phone]. Anjali Reagan WBC 6.5 103/ul Normal 4.0-11.0 [facility] Comment on above: Performed By: #### C BC ####[facility] Rktbtimfzc722[address] [place], [place] [id number]. Anjali Tez CULTURE ANAEROBICon 02-12-20 21 CULTURE ANAEROBIC Specimen Comments: RIGHT ANKLE JOINT Culture Observations: NO GROWTH AT 72 HRS Normal [facility] Comment on above: Performed By: #### A NACX ####[facility] Atxgspxcvj040[address] [place], [place] [id number]. Biancaramona Tez CULTURE OTHERon 02-11-2021 CULTURE OTHER Specimen Comments: RIGHT ANKLE JOINT Culture Observations: NO GROWTH AT 72 HRS Normal [facility] Comment on above: Performed By: #### O THCX ####[facility] Rmihytsozq525[address] [place], [place] [address]Dr. Anjali Reagan GRAM STAINon 02-11-2021 COMMENTS NO ORGANISMS OBSERVED Normal [facility] Comment on above: Performed By: #### G STAIN ####[facility] Cfhkhjhvic9518[address] [place], [place] [address]Dr. Anjali Reagan DIPHTHEROIDS Normal [facility] Comment on above: Performed By: #### G STAIN ####[facility] Yttzhjjnhd67[address] [place] [address]Dr. Anjali Reagan EPITHELIALS Normal [facility] Comment on above: Performed By: #### G STAIN ####[facility] Dzvmidhxms4875 [place] [address]Dr. Anjali Reagan FUNGAL ELEMENTS Normal [facility] Comment on above: Performed By: #### G STAIN ####[facility] Deezhkpxpc9586 [place] [address]Dr. Anjali Reagan GRAM NEG BACILLI Normal [facility] Comment on above: Performed By: #### G STAIN ####[facility] Xgvejjwtqe70[address] [place], [place] [address]Dr. Anjali Reagan GRAM NEG DIPPLOCOCCI Normal [facility] Comment on above: Performed By: #### G STAIN ####[facility] Ersnbztfub759[address] [place], [place] [address]Dr. Anjali Reagan GRAM POS BACILLI Normal [facility] Comment on above: Performed By: #### G STAIN ####[facility] Uoqlynkyko889[address] [place], [place] [address]Dr. Anjali Reagan GRAM POSITIVE COCCI Normal [facility] Comment on above: Performed By: #### G STAIN ####[facility] Bzwbwqrkyz45[address] [place], [place] [address]Dr. Anjali Reagan GRAM STAIN SOURCE Right ankle joint Normal [facility] Comment on above: Performed By: #### G STAIN ####[facility] Fqqjhvdjgt2823 [place] [address]Dr. Anjali Reagan GS_DIPTH Normal [facility] Comment on above: Performed By: #### G STAIN ####[facility] Txpvodsaxa1164[address] [place], [place] [address]Dr. Anjali Reagan WBC FEW Normal [facility] Comment on above: Performed By: #### G STAIN ####[facility] Lldnbmipsc665[address] [place], [place] [address]Dr. Anjali Reagan POINT OF CARE GLUCOSEon 01-31 Glucose [Mass/Vol] 196 mg/dL Critically high 74-106 [facility] Comment on above: Performed By: #### P OCGLUC ####[facility] Rdhvcolafy7465[address] [place], [place] [address]Dr. Anjali Reagan Glucose [Mass/Vol] 176 mg/dL Critically high 74-106 [facility] Comment on above: Performed By: #### P OCGLUC ####[facility] Llinwvdswl096[address] [place], [place] [address]Dr. Anjali Reagan PREALBUMINon 02-11-2021 Prealbumin [Mass/Vol] 17.8 mg/dL Normal 17.6-36.0 [facility] Comment on above: Performed By: #### P REALB, ALB ####[facility] Hnzmgkuouf445[address] [place], [place] [address]Dr. Anjali Reagan PROF 14(COMP METB)on 021 Albumin [Mass/Vol] 2.6 g/dL Critically low 3.5-5.0 [facility] Comment on above: Performed By: #### B MP, CMP ####[facility] Irxfhlypyi5030[address] [place], [place] [address]Dr. Anjali Reagan Albumin/Globulin [Mass ratio] 0.6 {ratio} Normal [facility] Comment on above: Performed By: #### B MP, CMP ####[facility] Sghrntwygl460[address] [place], [place] [address]Dr. Anjali Reagan ALP [Catalytic activity/Vol] 104 U/L Normal 38-126 [facility] Comment on above: Performed By: #### B MP, CMP ####[facility] Thwzevogca7[address] [place], [place] [address]Dr. Anjali Reagan ALT [Catalytic activity/Vol] 17 U/L Critically low 21-72 [facility] Comment on above: Performed By: #### B MP, CMP ####[facility] Kpspjkahlk679257 [address] [place], [place] [address]Dr. Anjali Reagan AST [Catalytic activity/Vol] 26 U/L Normal 17-59 [facility] Comment on above: Performed By: #### B MP, CMP ####[facility] Qanjdhpxko8609 [place] [address]Dr. Anjali Reagan Bilirubin [Mass/Vol] 0.5 mg/dL Normal 0.2-1.3 [facility] Comment on above: Performed By: #### B MP, CMP ####[facility] Qykhgbcblt134[address] [place], [place] [address]Dr. Anjali Reagan Globulin (S) [Mass/Vol] 4.1 g/dL Normal [facility] Comment on above: Performed By: #### B MP, CMP ####[facility] Gqtswqzzed0700[address] [place], [place] [address]Dr. Anjali Reagan Protein [Mass/Vol] 6.7 g/dL Normal 6.1-8.[address] [facility] Comment on above: Performed By: #### B MP, CMP ####[facility] Ybhrigcbsi580[address] [place], [place] [address]Dr. Anjali Reagan PROF CHEM 8 (BAS METB)on Anion gap [Moles/Vol] 11.3 mmol/L Normal [facility] Comment on above: Performed By: #### B MP, CMP ####[facility] Srxwtxxsod278[address] [place], [place] [address]Dr. Anjali Reagan Calcium [Mass/Vol] 9.0 mg/dL Normal 8.4-10.2 [facility] Comment on above: Performed By: #### B MP, CMP ####[facility] Askzsgzrcg320[address] [place], [place] [address]Dr. Anjali Reagan Chloride [Moles/Vol] 101 mmol/L Normal 98-107 [facility] Comment on above: Performed By: #### B MP, CMP ####[facility] Dilpguerzb504257 [address] [place], [place] [address]Dr. Anjali Reagan CO2 [Moles/Vol] 28.0 mmol/L Normal 22.0-30.0 [facility] Comment on above: Performed By: #### B MP, CMP ####[facility] Acsaplrigj9601[address] [place], [place] [address]Dr. Anjali Reagan Creatinine [Mass/Vol] 1.23 mg/dL Normal 0.66-1.25 [facility] Comment on above: Performed By: #### B MP, CMP ####[facility] Fqwrmyfmzm24[address] [place] [address]Dr. Anjali Reagan EGFR-AF MACANESE >60 Normal >=60 [facility] Comment on above: Performed By: #### B MP, CMP ####[facility] Vtnldzkoci1606 [place] [phone]. Anjali Reagan EGFR-NON AF MACANESE 59 mL/min/1.73m2 Critically low >=60 [facility] Comment on above: Performed By: #### B MP, CMP ####[facility] Wivgblazki3211[address] [place], [place] [address]Dr. Anjali Reagan Glucose [Mass/Vol] 109 mg/dL Critically high 74-106 [facility] Comment on above: Performed By: #### B MP, CMP ####[facility] Mgewxbxnrp012257 [address] [place], [place] [address]Dr. Anjali Reagan Potassium [Moles/Vol] 3.9 mmol/L Normal 3.4-5.0 [facility] Comment on above: Performed By: #### B MP, CMP ####[facility] Wlzhnxmdkc855[address] [place], [place] [address]Dr. Anjali Reagan Sodium [Moles/Vol] 136 mmol/L Critically low 137-145 [facility] Comment on above: Performed By: #### B MP, CMP ####[facility] Nwgpkgimon6729[address] [place], [place] [address]Dr. Anjali Reagan Urea nitrogen [Mass/Vol] 32.0 mg/dL Critically high 9.0-20 .0 [facility] Comment on above: Performed By: #### B MP, CMP ####[facility] Dgwddfqjzs764657 [address] [place], [place] [address]Dr. Anjali Reagan Urea nitrogen/Creatinine [Mass ratio] 26.0 mg/mg Normal [facility] Comment on above: Performed By: #### B MP, CMP ####[facility] Bxutefbhih534[address] [place], [place] [address]Dr. Anjali Reagan VANCOMYCIN TROUGHon 11-12-20 21 VANCOMYCIN TROUGH 9.8 ug/ml Normal 5.0-20.0 [facility] Comment on above: Performed By: #### V ANCT ####[facility] Pgfijoftvz046[address] [place], [place] [address]Dr. Anjali Reagan XR ANKLE RT 2Von 02-11-2021 XR ANKLE RT 2V Normal [facility] XR FOOT RT MIN 3 VIEWSon XR FOOT RT MIN 3 VIEWS Normal [facility] CBC AUTO DIFFon 02-10-2021 BASO # 0.0 103/ul Normal 0.0-0.1 [facility] Comment on above: Performed By: #### C BC ####[facility] Mvmckoqjzf080[address] [place], [place] [address]DrVeronica Reagan Basophils/100 WBC (Bld) 0.3 % Normal 0.2-2.0 [facility] Comment on above: Performed By: #### C BC ####[facility] Fmfgrwzmyd229057 [address] [place], [place] [address]DrVeronica Reagan EO # 0.2 103/ul Normal 0.0-0.7 [facility] Comment on above: Performed By: #### C BC ####[facility] Yzfjwkbdxa836[address] [place], [place] [address]DrVeronica Reagan Eosinophils/100 WBC (Bld) 2.7 % Normal 0.9-7.0 [facility] Comment on above: Performed By: #### C BC ####[facility] Zptalbmjfg6215 [place] [address]DrVeronica Reagan Erythrocyte distribution width (RBC) [Ratio] 18.8 % Critically high 11.0-15.0 [facility] Comment on above: Performed By: #### C BC ####[facility] Yvmbszclna737[address] [place], [place] [address]DrVeronica Reagan Hematocrit (Bld) [Volume fraction] 31.6 % Critically low 42.0-54.0 [facility] Comment on above: Performed By: #### C BC ####[facility] Lfzfostifs094[address] [place], [place] [address]DrVeronica Reagan Hemoglobin (Bld) [Mass/Vol] 9.6 g/dL Critically low 14.0-18.0 [facility] Comment on above: Performed By: #### C BC ####[facility] Wdevxarmox3318 [place] [address]Dr. Biancaramona Reagan IG # 0.04 10e3/ul Critically high 0.00-0.03 [facility] Comment on above: Performed By: #### C BC ####[facility] Wqgpdknxao8470 [place] [address]Dr. Anjali Reagan IG % 0.6 % Critically high 0.0-0.5 [facility] Comment on above: Performed By: #### C BC ####[facility] Fipcbtbwxv8810[address] [place], [place] [address]Dr. Anjali Reagan LYMPH # 0.9 103/ul Critically low 1.2-3.8 [facility] Comment on above: Performed By: #### C BC ####[facility] Xpcrdsvgrj518[address] [place], [place] [address]Dr. Anjali Reagan Lymphocytes/100 WBC (Bld) 12.2 % Critically low 20.5-60.0 [facility] Comment on above: Performed By: #### C BC ####[facility] Strqzdmgic489[address] [place], [place] [address]Dr. Anjali Reagan MANUAL DIFF REQ NO Normal [facility] Comment on above: Performed By: #### C BC ####[facility] Hitrjaswre555[address] [place], [place] [address]Dr. Anjali Tez MCH (RBC) [Entitic mass] 24.7 pg Critically low 25.9-34 .0 [facility] Comment on above: Performed By: #### C BC ####[facility] Ptaufqcvxe215[address] [place], [place] [address]Dr. Biancaramona Tez MCHC (RBC) [Mass/Vol] 30.4 g/dL Normal 29.9-35.2 [facility] Comment on above: Performed By: #### C BC ####[facility] Rmxpqfltim026[address] [place], [place] [address]Dr. Anjail Tez MCV (RBC) [Entitic vol] 81.4 fL Normal 80.0-94.0 [facility] Comment on above: Performed By: #### C BC ####[facility] Xuxdiflexh0506 [place] [address]Dr. Anjali Tez MONO # 0.7 103/ul Normal 0.3-0.8 [facility] Comment on above: Performed By: #### C BC ####[facility] Otgvzwbjqp2633 [place] [address]Dr. Anjali Reagan Monocytes/100 WBC (Bld) 9.9 % Normal 1.7-12.0 [facility] Comment on above: Performed By: #### C BC ####[facility] Lvsiibpqgh1140[address] [place], [place] [address]Dr. Biancaramona Tez NEUT # 5.3 103/ul Normal 1.4-6.5 [facility] Comment on above: Performed By: #### C BC ####[facility] Hejrvphsoy68[address] [place], [place] [address]Dr. Biancaramona Reagan Neutrophils/100 WBC (Bld) 74.3 % Normal 43.0-75.0 [facility] Comment on above: Performed By: #### C BC ####[facility] Cnrwnmqoha194[address] [place], [place] [address]Dr. Anjali Reagan Platelet mean volume (Bld) [Entitic vol] 9.6 fL Normal 9.5-13.5 [facility] Comment on above: Performed By: #### C BC ####[facility] Ucfilxxgcy4543 [place] [address]Dr. Anjali Reagan PLT 218 103/ul Normal 150-450 [facility] Comment on above: Performed By: #### C BC ####[facility] Lyzvzfmgfy6610 [place] [address]Dr. Anjali Reagan RBC 3.88 106/ul Critically low 4.70-6.10 [facility] Comment on above: Performed By: #### C BC ####[facility] Rkmnhjkmro649[address] [place], [place] [address]Dr. Anjali Reagan WBC 7.1 103/ul Normal 4.0-11.0 [facility] Comment on above: Performed By: #### C BC ####[facility] Loopwhvpxc9[address] [place] [address]Dr. Anjali Reagan POINT OF CARE GLUCOSEon 01-31 Glucose [Mass/Vol] 219 mg/dL Critically high 74-106 [facility] Comment on above: Performed By: #### P OCGLUC ####[facility] Evpzgfsguc5261 [place] [address]Dr. Anjali Reagan Glucose [Mass/Vol] 136 mg/dL Critically high 74-106 [facility] Comment on above: Performed By: #### P OCGLUC ####[facility] Eeqagtjkph6686 [place] [address]Dr. Anjali Reagan Glucose [Mass/Vol] 119 mg/dL Critically high 74-106 [facility] Comment on above: Performed By: #### P OCGLUC ####[facility] Nhsbszonot5541 [place] [address]Dr. Anjali Reagan PROF 14(COMP METB)on 021 Albumin [Mass/Vol] 2.8 g/dL Critically low 3.5-5.0 [facility] Comment on above: Performed By: #### C MP, BMP ####[facility] Atgzpknhgq8574 [place] [address]Dr. Anjali Reagan Albumin/Globulin [Mass ratio] 0.7 {ratio} Normal [facility] Comment on above: Performed By: #### C MP, BMP ####[facility] Lchfdtwztf3754 [place] [address]Dr. Anjali Reagan ALP [Catalytic activity/Vol] 109 U/L Normal 38-126 [facility] Comment on above: Performed By: #### C MP, BMP ####[facility] Qteapajjoc7097 [place] [address]Dr. Anjali Reagan ALT [Catalytic activity/Vol] 23 U/L Normal 21-72 [facility] Comment on above: Performed By: #### C MP, BMP ####[facility] Ctaqwuqgba8014 [place] [address]Dr. Anjali Reagan AST [Catalytic activity/Vol] 24 U/L Normal 17-59 [facility] Comment on above: Performed By: #### C MP, BMP ####[facility] Iurqvoieub4196 [place] [address]Dr. Anjali Reagan Bilirubin [Mass/Vol] 0.4 mg/dL Normal 0.2-1.3 [facility] Comment on above: Performed By: #### C MP, BMP ####[facility] Qkqctccbvf376[address] [place], [place] [address]Dr. Anjali Reagan Globulin (S) [Mass/Vol] 4.1 g/dL Normal [facility] Comment on above: Performed By: #### C MP, BMP ####[facility] Gmfkxhgzyr57[address] [place], [place] [address]Dr. Anjali Reagan Protein [Mass/Vol] 6.9 g/dL Normal 6.1-8.2 [facility] Comment on above: Performed By: #### C MP, BMP ####[facility] Fafbarhjsy590[address] [place], [place] [address]Dr. Anjali Reagan PROF CHEM 8 (BAS METB)on Anion gap [Moles/Vol] 13.0 mmol/L Normal [facility] Comment on above: Performed By: #### C MP, BMP ####[facility] Ohpiwxshfw09[address] [place], [place] [address]Dr. Anjali Reagan Calcium [Mass/Vol] 9.4 mg/dL Normal 8.4-10.2 [facility] Comment on above: Performed By: #### C MP, BMP ####[facility] Svdhvmhzku9[address] [place], [place] [address]Dr. Anjali Reagan Chloride [Moles/Vol] 104 mmol/L Normal 98-107 [facility] Comment on above: Performed By: #### C MP, BMP ####[facility] Dxiktlhgad8216[address] [place], [place] [address]Dr. Anjali Reagan CO2 [Moles/Vol] 27.7 mmol/L Normal 22.0-30.0 [facility] Comment on above: Performed By: #### C MP, BMP ####[facility] Obfjdqnznr3045 [place] [phone]. Anjali Reagan Creatinine [Mass/Vol] 1.19 mg/dL Normal 0.66-1.25 [facility] Comment on above: Performed By: #### C MP, BMP ####[facility] Cntwpzpbci0571 [place] [phone]. Anjali Reagan EGFR-AF MACANESE >60 Normal >=[address] [facility] Comment on above: Performed By: #### C MP, BMP ####[facility] Ymsvsbbscg8974 [place] [phone]. Anjali Reagan EGFR-NON AF MACANESE >60 Normal >=60 [facility] Comment on above: Performed By: #### C MP, BMP ####[facility] Rlyxnuwtbc4075 [place] [phone]. Anjali Reagan Glucose [Mass/Vol] 81 mg/dL Normal 74-106 [facility] Comment on above: Performed By: #### C MP, BMP ####[facility] Nkeyagfznb[address] [place] [id number]. Anjali Reagan Potassium [Moles/Vol] 4.1 mmol/L Normal 3.4-5.0 [facility] Comment on above: Performed By: #### C MP, BMP ####[facility] Ynbyvlsznj4953 [place] [id number]. Anjali Reagan Sodium [Moles/Vol] 141 mmol/L Normal 137-[address] [facility] Comment on above: Performed By: #### C MP, BMP ####[facility] Vtjzlyarnv9722 [place] [id number]. Anjali Reagan Urea nitrogen [Mass/Vol] 41.0 mg/dL Critically high 9.0-20 .0 [facility] Comment on above: Performed By: #### C MP, BMP ####[facility] Uqgilckyvp0528 [place] [id number]. Anjali Reagan Urea nitrogen/Creatinine [Mass ratio] 34.4 mg/mg Normal [facility] Comment on above: Performed By: #### C MP, BMP ####[facility] Bcfihijtho4158 [place] [address]Dr. Anjali Reagan CBC W MANUAL DIFFon 02-10-20 21 ANISOCYTOSIS SLIGHT Normal [facility] Comment on above: Performed By: #### C BCMAN ####[facility] Kziueivdcr4960 [place] [address]Dr. Anjali Reagan ATYPICAL LYMPH # Normal [facility] Comment on above: Performed By: #### C BCMAN ####[facility] Ngccbsvwbr[address] [place], [place] [address]Dr. Anjali Reagan ATYPICAL LYMPH % Normal [facility] Comment on above: Performed By: #### C CORI ####[facility] Yulogxvjzq55[address] [place], [place] [address]Dr. Anjali Reagan BAND # Normal 0.0-0.3 [facility] Comment on above: Performed By: #### C CORI ####[facility] Andrptcejy53[address] [place], [place] [address]Dr. Anjali Reagan BAND % Normal 0-5 [facility] Comment on above: Performed By: #### C CORI ####[facility] Dckywffupb08[address] [place], [place] [address]Dr. Anjali Reagan BASOM # 0.00 103/ul Normal 0.00-0.10 [facility] Comment on above: Performed By: #### C CORI ####[facility] Gbxedtbxjd634[address] [place], [place] [address]Dr. Anjali Reagan BASOM % 0.0 % Critically low 0.2-2.0 [facility] Comment on above: Performed By: #### C BCFIONA ####[facility] Cjrmujztyv427[address] [place], [place] [address]Dr. Anjali Reagan BLAST # Normal [facility] Comment on above: Performed By: #### C CORI ####[facility] Vomkrqzxwn624[address] [place], [place] [address]Dr. Anjali Reagan BLAST % Normal [facility] Comment on above: Performed By: #### C CORI ####[facility] Nzwpascejn5125 [place], [place] [address]Re. Anjali Reagan CORRECTED WBC Normal 4.0-11.0 [facility] Comment on above: Performed By: #### C CORI ####[facility] Gxfleqktfp9491 [place], [place] [address]Rd. Anjali Reagan EOS # 0.00 103/ul Normal 0.00-0.70 [facility] Comment on above: Performed By: #### C CORI ####[facility] Vbikeoqjkz8693 [place], [place] [address]Ks. Anjali Reagan EOS% 0.0 % Critically low 0.9-7.0 [facility] Comment on above: Performed By: #### C CORI ####[facility] Wpsedumwhy5587 [place], [place] [address]Nm. Anjali Reagan HCT 31.1 % Critically low 42.0-54.0 [facility] Comment on above: Performed By: #### C CORI ####[facility] Kqyoioyynw2175 [place], [place] [address]Tq. Anjali Reagan HGB 9.6 g/dl Critically low 14.0-18.0 [facility] Comment on above: Performed By: #### C CORI ####[facility] Zylnodipgq2909 [place], [place] [address]Ll. Anjali Reagan LYMPHM # 0.73 103/ul Critically low 1.20-3.80 [facility] Comment on above: Performed By: #### C CORI ####[facility] Tqorepxdvx5976 [place], [place] [address]Pr. Anjail Reagan LYMPHM% 7.0 % Critically low 20.5-60.0 [facility] Comment on above: Performed By: #### C CORI ####[facility] Ptysxkmwyr0875 [place], [place] [address]Is. Anjali Reagan MCH 25.1 pg Critically low 25.9-34.0 [facility] Comment on above: Performed By: #### C CORI ####[facility] Dxqixdcbpc0848 [place] [id number]. Anjali Reagan MCHC 30.9 g/dl Normal 29.9-35.2 [facility] Comment on above: Performed By: #### C CORI ####[facility] Wctwsjevay1292 [place] [id number]. Anjali Reagan MCV 81.4 fL Normal 80.0-94.0 [facility] Comment on above: Performed By: #### C CORI ####[facility] Qzcjbpbjeq9963 [place] [id number]. Anjali Reagan METAMYELOCYTE # Normal [facility] Comment on above: Performed By: #### C CORI ####[facility] Hvnijaitvg0638 [place] [id number]. Anjali Reagan METAMYELOCYTE % Normal [facility] Comment on above: Performed By: #### C CORI ####[facility] Fknxuivwhb430[address] [place], [place] [address]Dr. Anjali Reagan MONOM# 0.31 103/ul Normal 0.30-0.80 [facility] Comment on above: Performed By: #### C CORI ####[facility] Xrbysushse1948 [place] [address]Dr. Anjali Reagan MONOM% 3.0 % Normal 1.7-12.0 [facility] Comment on above: Performed By: #### Uzair PERSAUD ####[facility] Lqysspiqsv7762 [place] [id number]. Anjali Reagan MPV 9.9 fL Normal 9.5-13.5 [facility] Comment on above: Performed By: #### C CORI ####[facility] Lxeoryteqj2247 [place] [id number]. Anjali Reagan MYELOCYTE # Normal [facility] Comment on above: Performed By: #### C CORI ####[facility] Jvarhwmmbq9994 [place] [id number]. Anjali Reagan MYELOCYTE % Normal [facility] Comment on above: Performed By: #### C CORI ####[facility] Mkmjwzxnsm9093 [place], [place] [address]Lt. Anjali Reagan NRBC Normal [facility] Comment on above: Performed By: #### C CORI ####[facility] Wbbryyowhw1041 [place], [place] [address]Pv. Anjali Reagan OVALOCYTES SLIGHT Normal [facility] Comment on above: Performed By: #### C CORI ####[facility] Caougqgfmp4293 [place], [place] [address]Gm. Anjali Reagan PLT 211 103/ul Normal 150-450 [facility] Comment on above: Performed By: #### C CORI ####[facility] Jyornmofeh4093 [place] [id number]. Anjali Reagan POIKILOCYTOSIS SLIGHT Normal [facility] Comment on above: Performed By: #### C COIR ####[facility] Spmeyhqrgt6637 [place], [place] [address]Gv. Anjali Reagan RBC 3.82 106/ul Critically low 4.70-6.10 [facility] Comment on above: Performed By: #### C CORI ####[facility] Kjifwnxpla4132 [place] [id number]. Anjali Reagan RDW 18.4 % Critically high 11.0-15.0 [facility] Comment on above: Performed By: #### C CORI ####[facility] Mmkjkqszxj4489 [place] [id number]. Anjali Reagan SEG # 9.36 103/ul Critically high 1.40-6.[address] [facility] Comment on above: Performed By: #### C CORI ####[facility] Qqqaxetdyz8197 [place], [place] [address]Fx. Anjali Raegan SEG % 90.0 % Critically high 43.0-75.0 [facility] Comment on above: Performed By: #### C CORI ####[facility] Rpfpkzgkdd1210 [place], [place] [address]Ni. Anjali Reagan WBC 10.4 103/ul Normal 4.0-11.0 [facility] Comment on above: Performed By: #### C CORI ####[facility] Mgcaczexvz9719 [place] [address]Dr. Anjali Reagan HEP B SURFACE ANTIGEN SCREEN on 02-09-2021 HBsAg Screen Negative Normal Negative [facility] Comment on above: Performed By: #### H BSANS ####[facility] Cajznaidea9[address] [place], [place] [address]Dr. Anjali Reagan HEPATITIS C ANTIBODYon 02-09 Hep C Virus Ab <0.1 Normal 0.0-0.9 [facility] Comment on above: Result Comment: Nega tive: < 0.8 Indeterminate: 0.8 - 0.9 Positive: > 0.9 . The CDC recommends that a positive HCV antibody result be followed up with a HCV Nucleic Acid Amplification test (657949). Performed By: #### H CV ####[facility] Bmkkqfzlak009[address] [place], [place] [address]Dr. Anjlai Reagan HIV 1 AND 2 WITH REFLEXon HIV Screen 4th Generation wRfx Non-Reactive Normal Non Reactive [facility] Comment on above: Performed By: #### H IV12 ####[facility] Ippzeiczxt418[address] [place], [place] [address]Dr. Anjali Reagan POINT OF CARE GLUCOSEon 01-31 Glucose [Mass/Vol] 170 mg/dL Critically high 74-106 [facility] Comment on above: Performed By: #### P OCGLUC ####[facility] Evxbooxmeh489357 [address] [place], [place] [address]Dr. Biancaramona Reagan Glucose [Mass/Vol] 265 mg/dL Critically high 74-106 [facility] Comment on above: Performed By: #### P OCGLUC ####[facility] Mzakjytkly6[address] [place], [place] [address]Dr. Anjali Reagan Glucose [Mass/Vol] 319 mg/dL Critically high 74-106 [facility] Comment on above: Performed By: #### P OCGLUC ####[facility] Vcsveywkje683257 [address] [place], [place] [address]Dr. Anjali Reagan PROF 14(COMP METB)on 11-10-2 021 Albumin [Mass/Vol] 2.8 g/dL Critically low 3.5-5.0 [facility] Comment on above: Performed By: #### C MP ####[facility] Dhhowueulr3896 [place] [address]Dr. Anjali Tez Albumin/Globulin [Mass ratio] 0.7 {ratio} Normal [facility] Comment on above: Performed By: #### C MP ####[facility] Ojfotllmtq3972 [place] [address]Dr. Anjali Tez ALP [Catalytic activity/Vol] 117 U/L Normal 38-126 [facility] Comment on above: Performed By: #### C MP ####[facility] Wperpamiyx100[address] [place], [place] [address]Dr. Anjali Reagan ALT [Catalytic activity/Vol] 21 U/L Normal 21-72 [facility] Comment on above: Performed By: #### C MP ####[facility] Esivxsiwmh480[address] [place], [place] [address]Dr. Anjali Reagan Anion gap [Moles/Vol] 13.0 mmol/L Normal [facility] Comment on above: Performed By: #### C MP ####[facility] Mqcisttoxo1615[address] [place], [place] [address]Dr. Biancaramona Reagan AST [Catalytic activity/Vol] 21 U/L Normal 17-59 [facility] Comment on above: Performed By: #### C MP ####[facility] Nhgkcaoehq712[address] [place], [place] [address]Dr. Anjali Reagan Bilirubin [Mass/Vol] 0.5 mg/dL Normal 0.2-1.3 [facility] Comment on above: Performed By: #### C MP ####[facility] Apawvxxktl880[address] [place], [place] [address]Dr. Anjali Reagan Calcium [Mass/Vol] 9.3 mg/dL Normal 8.4-10.2 [facility] Comment on above: Performed By: #### C MP ####[facility] Fpsqtyolwm5411 [place] [address]Dr. Anjali Reagan Chloride [Moles/Vol] 100 mmol/L Normal 98-107 [facility] Comment on above: Performed By: #### C MP ####[facility] Dpggneksks8107 [place] [phone]. Anjali Reagan CO2 [Moles/Vol] 27.5 mmol/L Normal 22.0-30.0 [facility] Comment on above: Performed By: #### C MP ####[facility] Zdhdtvfdec2813 [place] [phone]. Anjali Tez Creatinine [Mass/Vol] 1.49 mg/dL Critically high 0.66-1.25 [facility] Comment on above: Performed By: #### C MP ####[facility] Mufurlkeiu5109 [place] [address]Dr. Anjali Tez EGFR-AF MACANESE 58 mL/min/1.73m2 Critically low >=60 [facility] Comment on above: Performed By: #### C MP ####[facility] Isdigslfhr6275 [place] [address]Dr. Anjali Tez EGFR-NON AF MACANESE 48 mL/min/1.73m2 Critically low >=60 [facility] Comment on above: Performed By: #### C MP ####[facility] Mwpltrdrfg208[address] [place], [place] [address]Dr. Anjali Tez Globulin (S) [Mass/Vol] 4.2 g/dL Normal [facility] Comment on above: Performed By: #### C MP ####[facility] Aeulxtpojg4589 [place] [address]Dr. Biancaramona Tez Glucose [Mass/Vol] 276 mg/dL Critically high 74-106 [facility] Comment on above: Performed By: #### C MP ####[facility] Czxcsxpsqo3131 [place] [id number]. Anjali Tez Potassium [Moles/Vol] 4.5 mmol/L Normal 3.4-5.0 [facility] Comment on above: Performed By: #### C MP ####[facility] Iprnbqmfur9127 [place] [phone]. Biancaramona Reagan Protein [Mass/Vol] 7.0 g/dL Normal 6.1-8.2 [facility] Comment on above: Performed By: #### C MP ####[facility] Dztibyvzmr3888 [place] [address]Dr. Biancaramona Tez Sodium [Moles/Vol] 136 mmol/L Critically low 137-145 [facility] Comment on above: Performed By: #### C MP ####[facility] Ylidoqfhny2772 [place] [address]Dr. Anjali Reagan Urea nitrogen [Mass/Vol] 42.0 mg/dL Critically high 9.0-20 .0 [facility] Comment on above: Performed By: #### C MP ####[facility] Qlztrjjodn850[address] [place], [place] [address]Dr. Anjali Reagan Urea nitrogen/Creatinine [Mass ratio] 28.2 mg/mg Normal [facility] Comment on above: Performed By: #### C MP ####[facility] Jkqwhmmpbd895357 [address] [place], [place] [address]Dr. Anjali Reagan RPR QUANTon 02-09-2021 Rapid Plasma Reagin, Quant Non-Reactive Normal NonRea<1:1 [facility] Comment on above: Performed By: #### R PRQ ####[facility] Xazcynbgwe685157 [address] [place], [place] [address]Dr. Anjali Reagan XR ANKLE RT 2Von 02-09-2021 XR ANKLE RT 2V Normal [facility] XR TIB_FIB RT 2Von 1 XR TIB_FIB RT 2V Normal [facility] CRPon 02-08-2021 CRP 3.2 mg/dL Critically high <=1.0 [facility] Comment on above: Performed By: #### C RP ####[facility] Nhqtboygqx717[address] [place], [place] [address]Dr. Anjali Reagan CULTURE ANAEROBICon 02-09-20 21 CULTURE ANAEROBIC Specimen Comments: RIGHT FOOT IRRIGATION SWAB Culture Observations: NO GROWTH AT 72 HRS Normal [facility] Comment on above: Performed By: #### A NACX ####[facility] Avymqknzzl082057 [address] [place], [place] [address]Dr. Yilan Reagan CULTURE ANAEROBIC Specimen Comments: RIGHT LEG REAMINGS Culture Observations: NO GROWTH OF ANAEROBES AT 72 HOURS. [facility] Comment on above: Performed By: #### A NACX ####[facility] Zhzoaaqqtr264257 [address] [place], [place] [address]Dr. Yilan Reagan CULTURE ANAEROBIC Culture Observations : NO GROWTH AT 72 HRS [facility] Comment on above: Performed By: #### A NACX ####[facility] Dlljddevqk412157 [address] [place], [place] [address]Dr. Yilan Reagan CULTURE ANAEROBIC Specimen Comments: RIGHT TIBIA BONE Culture Observations: NO GROWTH AT 72 HRS [facility] Comment on above: Performed By: #### A NACX ####[facility] Aztslxctaq437[address] [place], [place] [address]Dr. Yilan Reagan CULTURE ANAEROBIC Specimen Comments: RIGHT CALCANEOUS BONE Culture Observations: NO GROWTH OF ANAEROBES AT 72 HOURS. [facility] Comment on above: Performed By: #### A NACX ####[facility] Aarbfnsojr1138[address] [place], [place] [address]Dr. Yilan Reagan CULTURE ANAEROBIC Specimen Comments: RIGHT ANKLE ABSCESS Culture Observations: NO GROWTH AT 72 HRS [facility] Comment on above: Performed By: #### A NACX ####[facility] Osnbqhitdt260[address] [place], [place] [address]Dr. Yilan Reagan CULTURE OTHERon 02-08-2021 CULTURE OTHER Specimen Comments: RIGHT LEG REAMINGS Culture Observations: NORMAL SKIN ARELI. [facility] Comment on above: Performed By: #### O THCX ####[facility] Vwlvfycwjz8616[address] [place], [place] [address]Dr. Yilan Reagan CULTURE OTHER Specimen Comments: RIGHT FOOT IRRIGATION SWAB Culture Observations: NO GROWTH AT 72 HRS [facility] Comment on above: Performed By: #### O THCX ####[facility] Jevqcwvymn909[address] [place], [place] [address]Dr. Yilan Reagan CULTURE OTHER Specimen Comments: RIGHT CALCANEOUS BONE Culture Observations: NORMAL SKIN ARELI. [facility] Comment on above: Performed By: #### O THCX ####[facility] Bplnpoqhrq195[address] [place], [place] [address]Dr. Anjali Reagan CULTURE OTHER Specimen Comments: RIGHT TIBIA BONE Culture Observations: NO GROWTH AT 72 HRS Normal [facility] Comment on above: Performed By: #### O THCX ####[facility] Zacrgclnai6569 [place] [phone]. Anjali Reagan CULTURE OTHER Specimen Comments: RIGHT TALUS BONE Culture Observations: NORMAL SKIN ARELI. Normal [facility] Comment on above: Performed By: #### O THCX ####[facility] Ztytgnnpdl4331 [place] [phone]. Anjali Reagan CULTURE OTHER Specimen Comments: RIGHT ANKLE ABSCESS Culture Observations: NO GROWTH AT 72 HRS Normal [facility] Comment on above: Performed By: #### O THCX ####[facility] Fpjfkvszjy[address] [place], [place] [address]Dr. Anjali Reagan GRAM STAINon 02-08-2021 COMMENTS NO ORGANISMS OBSERVED Normal [facility] Comment on above: Performed By: #### G STAIN ####[facility] Mbbontyvot7539[address] [place], [place] [address]Dr. Anjali Reagan DIPHTHEROIDS Normal [facility] Comment on above: Performed By: #### G STAIN ####[facility] Ryytquddjq6518[address] [place], [place] [address]Dr. Anjali Reagan EPITHELIALS Normal [facility] Comment on above: Performed By: #### G STAIN ####[facility] Mqgxvnzcbm9493 [place] [id number]. Anjali Reagan FUNGAL ELEMENTS Normal [facility] Comment on above: Performed By: #### G STAIN ####[facility] Ielidrnlac4150 [place] [id number]. Anjali Reagan GRAM NEG BACILLI Normal [facility] Comment on above: Performed By: #### G STAIN ####[facility] Dmmmaodmtk015[address] [place], [place] [address]Dr. Anjali Reagan GRAM NEG DIPPLOCOCCI Normal [facility] Comment on above: Performed By: #### G STAIN ####[facility] Nltwznwdqf004[address] [place], [place] [address]Dr. Anjali Reagan GRAM POS BACILLI Normal [facility] Comment on above: Performed By: #### G STAIN ####[facility] Tjkzwrovdj9277 [place] [address]Dr. Anjali Reagan GRAM POSITIVE COCCI Normal [facility] Comment on above: Performed By: #### G STAIN ####[facility] Seqicucsak0856 [place] [address]Dr. Anjali Reagan GRAM STAIN SOURCE RIGHT LEG REAMINGS Normal [facility] Comment on above: Performed By: #### G STAIN ####[facility] Projjvfxno3504 [place] [address]Dr. Anjali Reagan GRAM STAIN SOURCE RIGHT FOOT POST IRRIGATION SWAB Normal [facility] Comment on above: Performed By: #### G STAIN ####[facility] Dtmuvhkrvs6010 [place] [address]Dr. Anjali Reagan GS_DIPTH Normal [facility] Comment on above: Performed By: #### G STAIN ####[facility] Jzhalfxoog147[address] [place], [place] [address]Dr. Anjali Reagan WBC MODERATE Normal [facility] Comment on above: Performed By: #### G STAIN ####[facility] Xmwobynkct877[address] [place], [place] [address]Dr. Anjali Reagan WBC NONE SEEN Normal [facility] Comment on above: Performed By: #### G STAIN ####[facility] Laxwvdxzhw8320 [place] [address]Dr. Anjali Reagan COMMENTS NO ORGANISMS OBSERVED Normal [facility] Comment on above: Performed By: #### G STAIN ####[facility] Kvddzjjwjy1346 [place] [address]Dr. Anjali Reagan DIPHTHEROIDS Normal [facility] Comment on above: Performed By: #### G STAIN ####[facility] Hoxaecquou05[address] [place], [place] [address]Dr. Anjali Reagan EPITHELIALS Normal [facility] Comment on above: Performed By: #### G STAIN ####[facility] Tlgftiasgp4798 [place] [address]Dr. Anjali Reagan FUNGAL ELEMENTS Normal [facility] Comment on above: Performed By: #### G STAIN ####[facility] Rzsrxjijdd1127 [place] [address]Dr. Anjali Reagan GRAM NEG BACILLI Normal [facility] Comment on above: Performed By: #### G STAIN ####[facility] Locyixpgem8979 [place] [address]Dr. Anjali Reagan GRAM NEG DIPPLOCOCCI Normal [facility] Comment on above: Performed By: #### G STAIN ####[facility] Cfzvapzvnl0989 [place] [address]Dr. Anjali Reagan GRAM POS BACILLI Normal [facility] Comment on above: Performed By: #### G STAIN ####[facility] Orvfzqfivh615[address] [place], [place] [address]Dr. Anjali Reagan GRAM POSITIVE COCCI Normal [facility] Comment on above: Performed By: #### G STAIN ####[facility] Qngmlcryeu701[address] [place], [place] [address]Dr. Anjali Reagan GRAM STAIN SOURCE RIGHT TIBIA BONE Normal [facility] Comment on above: Performed By: #### G STAIN ####[facility] Osswctorrs6602 [place] [address]Dr. Anjali Reagan GRAM STAIN SOURCE RIGHT CALCANEOUS BONE Normal [facility] Comment on above: Performed By: #### G STAIN ####[facility] Dyfhmxzwni3785[address] [place], [place] [address]Dr. Anjali Reagan GRAM STAIN SOURCE RIGHT TALUS BONE Normal [facility] Comment on above: Performed By: #### G STAIN ####[facility] Jdsqbxispu7097 [place] [address]Dr. Anjali Reagan GS_DIPTH Normal [facility] Comment on above: Performed By: #### G STAIN ####[facility] Njmscchhrt025[address] [place], [place] [address]Dr. Anjali Reagan WBC NONE SEEN Normal [facility] Comment on above: Performed By: #### G STAIN ####[facility] Xbupzkvfdv3307 [place] [address]Dr. Anjali Reagan WBC FEW Normal [facility] Comment on above: Performed By: #### G STAIN ####[facility] Ututhriibb6507 [place] [id number]. Anjali Reagan COMMENTS NO ORGANISMS OBSERVED Normal [facility] Comment on above: Performed By: #### G STAIN ####[facility] Pnrivkfcol5632 [place] [id number]. Anjali Reagan DIPHTHEROIDS Normal [facility] Comment on above: Performed By: #### G STAIN ####[facility] Xbjycvwgqs5033 [place] [address]Dr. Anjali Reagan EPITHELIALS Normal [facility] Comment on above: Performed By: #### G STAIN ####[facility] Zlbrjeejgq617[address] [place], [place] [address]Dr. Anjali Reagan FUNGAL ELEMENTS Normal [facility] Comment on above: Performed By: #### G STAIN ####[facility] Rczbudsjxt32[address] [place], [place] [address]Dr. Anjali Reagan GRAM NEG BACILLI Normal [facility] Comment on above: Performed By: #### G STAIN ####[facility] Ryfpunsnij504[address] [place], [place] [address]Dr. Anjali Reagan GRAM NEG DIPPLOCOCCI Normal [facility] Comment on above: Performed By: #### G STAIN ####[facility] Fnozkiynzj29[address] [place], [place] [address]Dr. Anjali Reagan GRAM POS BACILLI Normal [facility] Comment on above: Performed By: #### G STAIN ####[facility] Kbmosiwfix110[address] [place], [place] [address]Dr. Anjali Reagan GRAM POSITIVE COCCI Normal [facility] Comment on above: Performed By: #### G STAIN ####[facility] Jyidqplpwz1555 [place] [address]Dr. Anjali Reagan GRAM STAIN SOURCE RIGHT FOOT ABSCESS SWAB Normal [facility] Comment on above: Performed By: #### G STAIN ####[facility] Bczcidhklk[address] [place], [place] [address]Dr. Anjali Reagan GS_DIPTH Normal [facility] Comment on above: Performed By: #### G STAIN ####[facility] Edkeaadffy6841 [place] [phone]. Anjali Reagan WBC RARE Normal [facility] Comment on above: Performed By: #### G STAIN ####[facility] Nkbkywgdds211[address] [place], [place] [address]Dr. Anjali Reagan HIV 1/2 RAPID (EXPOSURE ONLY )on 02-08-2021 HIV AB Negative Normal [facility] Comment on above: Performed By: #### R PDHIV ####[facility] Dcrbefgfdv[address] [place], [place] [address]Dr. Anjali Reagan HIV AG Negative Normal [facility] Comment on above: Performed By: #### R PDHIV ####[facility] Pieruqjevh227[address] [place], [place] [address]Dr. Anjali Reagan INTERNAL CONTROLS Within Normal Limits Normal Wi thin Normal Limits [facility] Comment on above: Performed By: #### R PDHIV ####[facility] Hvguczduqj[address] [place], [place] [address]Dr. Anjali Reagan RAPID HIV INFO SEE BELOW Normal [facility] Comment on above: Result Comment: This test is used for the initial screening of the exposure source. Confirmation of all results will be obtained through reference lab testing. Performed By: #### R PDHIV ####[facility] Puhidumqcx[address] [place], [place] [address]Dr. Anjali Reagan POINT OF CARE GLUCOSEon 11-0 Glucose [Mass/Vol] 400 mg/dL Critically high 74-106 [facility] Comment on above: Performed By: #### P OCGLUC ####[facility] Ovtdfxumzv[address] [place], [place] [address]Dr. Anjali Reagan Glucose [Mass/Vol] 373 mg/dL Critically high 74-106 [facility] Comment on above: Performed By: #### P OCGLUC ####[facility] Pbnqtlnxeg[address] [place], [place] [address]Dr. Anjali Reagan Glucose [Mass/Vol] 159 mg/dL Critically high 74-106 [facility] Comment on above: Performed By: #### P OCGLUC ####[facility] Ybsdmflwvs[address] [place], [place] [address]Dr. Anjali Reagan Glucose [Mass/Vol] 160 mg/dL Critically high 74-106 [facility] Comment on above: Performed By: #### P OCGLUC ####[facility] Vkdocjzszt5328 [place] [address]Dr. Anjali Reagan SED RATE WESTERGRENon 2020 SED RATE 51 mm/hr Critically high <=20 [facility] Comment on above: Performed By: #### S EDR ####[facility] Ivuansjdvk6856 [place] [address]Dr. Anjali Reagan CBC W MANUAL DIFFon 02-06-20 21 ATYPICAL LYMPH # Normal [facility] Comment on above: Performed By: #### C BCMAN ####[facility] Lgujchkdkd3821 [place] [address]Dr. Anjali Reagan ATYPICAL LYMPH % Normal [facility] Comment on above: Performed By: #### C BCMAN ####[facility] Wknpyxmczi5817 [place] [address]Dr. Anjali Reagan BAND # 0.2 103/ul Normal 0.0-0.3 [facility] Comment on above: Performed By: #### C BCMAN ####[facility] Ybjxqesoyy[address] [place], [place] [address]Dr. Anjali Reagan BAND % 3 % Normal 0-5 [facility] Comment on above: Performed By: #### C BCMAN ####[facility] Mvcvvarqsv7812 [place] [address]Dr. Anjali Reagan BASOM # 0.07 103/ul Normal 0.00-0.10 [facility] Comment on above: Performed By: #### C BCMAN ####[facility] Upigknrftf4299 [place] [address]Dr. Anjali Reagan BASOM % 1.0 % Normal 0.2-2.0 [facility] Comment on above: Performed By: #### C BCMAN ####[facility] Ygjvxoaiez6424 [place] [address]Dr. Anjali Reagan BLAST # Normal [facility] Comment on above: Performed By: #### C CORI ####[facility] Egsejkeiqx8244 [place] [id number]. Anjali Reagan BLAST % Normal [facility] Comment on above: Performed By: #### C CORI ####[facility] Mpamhbcuuq8187 [place] [phone]. Anjali Reagan CORRECTED WBC Normal 4.0-11.[address] [facility] Comment on above: Performed By: #### C CORI ####[facility] Hfbamnlsnq3735 [place] [phone]. Anjali Reagan EOS # 0.57 103/ul Normal 0.00-0.70 [facility] Comment on above: Performed By: #### C CORI ####[facility] Spryhxkbmo2053 [place] [address]Dr. Anjali Reagan EOS% 8.0 % Critically high 0.9-7.0 [facility] Comment on above: Performed By: #### C CORI ####[facility] Klwquieyfv3586 [place] [address]Dr. Anjali Reagan HCT 32.9 % Critically low 42.0-54.0 [facility] Comment on above: Performed By: #### C CORI ####[facility] Vwsxwbhsja8852 [place] [address]Dr. Anjali Reagan HGB 10.2 g/dl Critically low 14.0-18.0 [facility] Comment on above: Performed By: #### C CORI ####[facility] Oumervwvbo2037 [place] [phone]. Anjali Reagan LYMPHM # 0.78 103/ul Critically low 1.20-3.80 [facility] Comment on above: Performed By: #### C CORI ####[facility] Aynvlzfxrr6512 [place] [phone]. Anjali Reagan LYMPHM% 11.0 % Critically low 20.5-60.0 [facility] Comment on above: Performed By: #### C CORI ####[facility] Gyrmsefoaz[address] [place], [place] [address]Dr. Anjali Reagan MCH 24.9 pg Critically low 25.9-34.0 [facility] Comment on above: Performed By: #### C CORI ####[facility] Dftatlkjqv3769 [place] [phone]. Anjali Reagan MCHC 31.0 g/dl Normal 29.9-35.2 [facility] Comment on above: Performed By: #### C CORI ####[facility] Ejuwjvmxjd5477 [place] [phone]. Anjali Reagan MCV 80.4 fL Normal 80.0-94.0 [facility] Comment on above: Performed By: #### C BCFIONA ####[facility] Lzmehdobvs5129 [place] [address]Dr. Anjali Reagan METAMYELOCYTE # Normal [facility] Comment on above: Performed By: #### C CORI ####[facility] Nicmtmhvpu5901 [place] [address]Dr. Anjali Reagan METAMYELOCYTE % Normal [facility] Comment on above: Performed By: #### C CORI ####[facility] Avbohdunds5061 [place] [address]Dr. Anjali eRagan MONOM# 0.57 103/ul Normal 0.30-0.80 [facility] Comment on above: Performed By: #### C CORI ####[facility] Xmccplyvnk5100 [place] [address]Dr. Anjali Reagan MONOM% 8.0 % Normal 1.7-12.0 [facility] Comment on above: Performed By: #### C CORI ####[facility] Qyimzspttk2497 [place] [phone]. Anjali Reagan MPV 9.2 fL Critically low 9.5-13.5 [facility] Comment on above: Performed By: #### C CORI ####[facility] Lqkmnqipzq1414 [place] [phone]. Anjali Reagan MYELOCYTE # Normal [facility] Comment on above: Performed By: #### C CORI ####[facility] Bwpxwzejjq4573 [place], [place] [address]Rn. Anjali Reagan MYELOCYTE % Normal [facility] Comment on above: Performed By: #### C CORI ####[facility] Vqrgniewjh5492 [place] [phone]. Anjali Reagan NRBC Normal [facility] Comment on above: Performed By: #### C CORI ####[facility] Oqwyemupud8541 [place] [phone]. Anjali Reagan OVALOCYTES 1+ Normal [facility] Comment on above: Performed By: #### C CORI ####[facility] Fxcdkdqiek1416 [place] [phone]. Anjali Reagan PLT 209 103/ul Normal 150-450 [facility] Comment on above: Performed By: #### C CORI ####[facility] Kzzlgyaaka1891 [place] [phone]. Anjali Reagan RBC 4.09 106/ul Critically low 4.70-6.10 [facility] Comment on above: Performed By: #### C CORI ####[facility] Ugdaheiast8827 [place] [phone]. Anjali Reagan RDW 18.2 % Critically high 11.0-15.0 [facility] Comment on above: Performed By: #### Uzair PERSAUD ####[facility] Xilpztcpyi7371 [place] [phone]. Anjali Reagan SEG # 4.90 103/ul Normal 1.40-6.50 [facility] Comment on above: Performed By: #### C CORI ####[facility] Tzgresoefy4553 [place] [phone]. Anjali Reagan SEG % 69.0 % Normal 43.0-75.0 [facility] Comment on above: Performed By: #### C CORI ####[facility] Hyhuaehclv0865 [place] [phone]. Anjali Reagan WBC 7.1 103/ul Normal 4.0-11.0 [facility] Comment on above: Performed By: #### C CORI ####[facility] Tgypcfwoeu7782 [place] [address]Dr. Anjali Reagan CT ABD/PELVIS WO CONon 02-05 CT ABD/PELVIS WO CON Normal [facility] Covid-19 PCR (CVDTB)on SARS-CoV-2 (COVID-19) RNA MEREDITH+probe Ql (Unsp spec) Not detected Normal NOT DETECTED [facility] Comment on above: Result Comment: This test is not yet approved or cleared by the [place] FDA. When there are no FDA-approved or cleared tests available, and other criteria are met, FDA can make tests available under an emergency access mechanism called an Emergency Use Authorization (EUA). The EUA for this test is supported by the [employer] Supervisor of Health and Human Service's (HHS's) declaration [...] with SARS-CoV-2. Performed By: #### C VDTB ####[facility] Ndwlkidtud7755 [place] [address]Dr. Anjali Reagan ER URINE PROFILEon Bilirubin Ql (U) Negative Normal NEGATIVE The [facility] Comment on above: Performed By: #### E RUR ####[facility] Gdhmzafunt6061 [place] [address]Dr. Anjali Reagan Clarity (U) CLEAR Normal CLEAR [facility] Comment on above: Performed By: #### E RUR ####[facility] Mofuqrrjmq[address] [place], [place] [address]Dr. Anjali Reagan Color (U) LT. YELLOW Normal YELLOW [facility] Comment on above: Performed By: #### E RUR ####[facility] Rumudpxdyl1912 [place] [address]Dr. Biancaramona TAAHD A micrscopic examination will be performed if indicated. Normal [facility] Comment on above: Performed By: #### E RUR ####[facility] Ecubdiybdb[address] [place], [place] [address]Dr. Anjali Reagan Glucose Ql (U) Negative Normal NEGATIVE [facility] Comment on above: Performed By: #### E RUR ####[facility] Acxxyhjbsc711[address] [place], [place] [address]Dr. Anjali Reagan Hemoglobin Ql (U) Negative Normal NEGATIVE [facility] Comment on above: Performed By: #### E RUR ####[facility] Calyfydhbl994[address] [place], [place] [address]Dr. Anjali eTz Ketones Ql (U) Negative Normal NEGATIVE [facility] Comment on above: Performed By: #### E RUR ####[facility] Wwsekpwgxd1740[address] [place], [place] [address]Dr. Anjali Reagan LEUKOCYTES Negative Normal NEGATIVE [facility] Comment on above: Performed By: #### E RUR ####[facility] Yhnubugvxv594[address] [place], [place] [address]Dr. Anjali Tez Nitrite Ql (U) Negative Normal NEGATIVE [facility] Comment on above: Performed By: #### E RUR ####[facility] Sjexblxsxg195[address] [place], [place] [address]Dr. Anjali Reagan pH (U) 6.0 [pH] Normal 5-9 [facility] Comment on above: Performed By: #### E RUR ####[facility] Ukxzltadfe860[address] [place], [place] [address]Dr. Anjali Reagan SPEC GRAVITY 1.015 Normal 1.005-<=1.0 25 [facility] Comment on above: Performed By: #### E RUR ####[facility] Lpvoqgimgw098[address] [place], [place] [address]Dr. Anjali Reagan UA PROTEIN TRACE Normal NEGATIVE/ TRACE [facility] Comment on above: Performed By: #### E RUR ####[facility] Whcybmtqaa1415 [place] [address]Dr. Anjali Reagan UR MICRO IND NOT INDICATED Normal [facility] Comment on above: Performed By: #### E RUR ####[facility] Fnjtgfnuxm7933 [place] [address]Dr. Anjali Reagan Urobilinogen Qn (U) 0.2 {Geremias'U}/dL Normal 0.2 - 1. 0 [facility] Comment on above: Performed By: #### E RUR ####[facility] Ttdbdatiqq229[address] [place], [place] [address]Dr. Anjali Reagan PROF 14(COMP METB)on 021 Albumin [Mass/Vol] 2.8 g/dL Critically low 3.5-5.0 [facility] Comment on above: Performed By: #### C MP ####[facility] Ufeidmzkzo05[address] [place], [place] [address]Dr. Anjali Reagan Albumin/Globulin [Mass ratio] 0.6 {ratio} Normal [facility] Comment on above: Performed By: #### C MP ####[facility] Panxwofrmo3240[address] [place], [place] [address]Dr. Anjali Reagan ALP [Catalytic activity/Vol] 125 U/L Normal 38-126 [facility] Comment on above: Performed By: #### C MP ####[facility] Jiqpgkbvlt577[address] [place], [place] [address]Dr. Anjali Reagan ALT [Catalytic activity/Vol] 22 U/L Normal 21-72 [facility] Comment on above: Performed By: #### C MP ####[facility] Rxopjonucy4795[address] [place], [place] [address]Dr. Anjali Reagan Anion gap [Moles/Vol] 13.1 mmol/L Normal [facility] Comment on above: Performed By: #### C MP ####[facility] Zmkyayluoy528[address] [place], [place] [address]Dr. Anjali Reagan AST [Catalytic activity/Vol] 26 U/L Normal 17-59 [facility] Comment on above: Performed By: #### C MP ####[facility] Gwmbgmozfj959[address] [place], [place] [address]Dr. Anjali Reagan Bilirubin [Mass/Vol] 0.8 mg/dL Normal 0.2-1.3 [facility] Comment on above: Performed By: #### C MP ####[facility] Rxxljufrir5430[address] [place], [place] [address]Dr. Anjali Reagan Calcium [Mass/Vol] 9.2 mg/dL Normal 8.4-10.2 [facility] Comment on above: Performed By: #### C MP ####[facility] Cryixnhczz396[address] [place], [place] [address]Dr. Anjali Reagan Chloride [Moles/Vol] 98 mmol/L Normal 98-107 [facility] Comment on above: Performed By: #### C MP ####[facility] Ydhljmerqp3239[address] [place], [place] [address]Dr. Anjali Reagan CO2 [Moles/Vol] 28.7 mmol/L Normal 22.0-30.[address] [facility] Comment on above: Performed By: #### C MP ####[facility] Xtwpzagoyy256[address] [place], [place] [address]Dr. Anjali Reagan Creatinine [Mass/Vol] 1.62 mg/dL Critically high 0.66-1.25 [facility] Comment on above: Performed By: #### C MP ####[facility] Qdojeerdtj7524[address] [place], [place] [address]Dr. Anjali Reagan EGFR-AF MACANESE 52 mL/min/1.73m2 Critically low >=60 [facility] Comment on above: Performed By: #### C MP ####[facility] Odqspzkgzv0523[address] [place], [place] [address]Dr. Anjali Tez EGFR-NON AF MACANESE 43 mL/min/1.73m2 Critically low >=60 [facility] Comment on above: Performed By: #### C MP ####[facility] Fqkzolnjkw587[address] [place], [place] [address]Dr. Anjali Tez Globulin (S) [Mass/Vol] 4.6 g/dL Normal [facility] Comment on above: Performed By: #### C MP ####[facility] Ejwpmbwpmo4531 [place] [phone]. Anjali Reagan Glucose [Mass/Vol] 192 mg/dL Critically high 74-106 [facility] Comment on above: Performed By: #### C MP ####[facility] Fwlddgncym0416 [place] [address]Dr. Biancaramona Reagan Potassium [Moles/Vol] 4.8 mmol/L Normal 3.4-5.0 [facility] Comment on above: Performed By: #### C MP ####[facility] Ihrekepevb5872 [place] [address]Dr. Biancaramona Reagan Protein [Mass/Vol] 7.4 g/dL Normal 6.1-8.2 [facility] Comment on above: Performed By: #### C MP ####[facility] Zqpcjpzhzv96[address] [place], [place] [address]Dr. Anjali Reagan Sodium [Moles/Vol] 135 mmol/L Critically low 137-145 [facility] Comment on above: Performed By: #### C MP ####[facility] Zdrrmfpwct655[address] [place], [place] [address]Dr. Biancaramona Reagan Urea nitrogen [Mass/Vol] 40.0 mg/dL Critically high 9.0-20 .0 [facility] Comment on above: Performed By: #### C MP ####[facility] Nzfbvohose8218[address] [place], [place] [address]Dr. Anjali Reagan Urea nitrogen/Creatinine [Mass ratio] 24.7 mg/mg Normal [facility] Comment on above: Performed By: #### C MP ####[facility] Dzeslundfo0260 [place] [address]Dr. Anjali Reagan PROF CHEM 8 (BAS METB)on Anion gap [Moles/Vol] 13.4 mmol/L Normal [facility] Comment on above: Performed By: #### B MP ####[facility] Rbtjdbthel[address] [place], [place] [id number]. Anjali Reagan Calcium [Mass/Vol] 9.3 mg/dL Normal 8.4-10.2 [facility] Comment on above: Performed By: #### B MP ####[facility] Smycvlsfni0605 [place] [address]Dr. Anjali Reagan Chloride [Moles/Vol] 98 mmol/L Normal 98-107 [facility] Comment on above: Performed By: #### B MP ####[facility] Knogmatvcs9657 [place] [address]Dr. Anjali Reagan CO2 [Moles/Vol] 28.8 mmol/L Normal 22.0-30.0 [facility] Comment on above: Performed By: #### B MP ####[facility] Zadzifsmxv9717[address] [place], [place] [address]Dr. Anjali Reagan Creatinine [Mass/Vol] 1.72 mg/dL Critically high 0.66-1.25 [facility] Comment on above: Performed By: #### B MP ####[facility] Fqlssenwfv914[address] [place], [place] [address]Dr. Biancaramona Tez EGFR-AF MACANESE 49 mL/min/1.73m2 Critically low >=60 [facility] Comment on above: Performed By: #### B MP ####[facility] Zdnyhrbiuv55[address] [place], [place] [address]Dr. Biancaramona Tez EGFR-NON AF MACANESE 40 mL/min/1.73m2 Critically low >=60 [facility] Comment on above: Performed By: #### B MP ####[facility] Awyhhgjiir840[address] [place], [place] [address]Dr. Biancaramona Tez Glucose [Mass/Vol] 204 mg/dL Critically high 74-106 [facility] Comment on above: Performed By: #### B MP ####[facility] Hziuxdnfzw[address] [place], [place] [address]Dr. Anjali Reagan Potassium [Moles/Vol] 4.2 mmol/L Normal 3.4-5.0 [facility] Comment on above: Performed By: #### B MP ####[facility] Bhovhwtdfd7[address] [place], [place] [address]Dr. Anjali Reagan Sodium [Moles/Vol] 136 mmol/L Critically low 137-145 [facility] Comment on above: Performed By: #### B MP ####[facility] Xylzcbkmxv3132 [place], [place] [address]Gq. Anjali Reagan Urea nitrogen [Mass/Vol] 35.0 mg/dL Critically high 9.0-20 .0 [facility] Comment on above: Performed By: #### B MP ####[facility] Cjnfxlfiet1510 [place], [place] [address]Yh. Anjali Reagan Urea nitrogen/Creatinine [Mass ratio] 20.3 mg/mg Normal [facility] Comment on above: Performed By: #### B MP ####[facility] Wyggnwqsvl3922 [place], [place] [address]Pq. Anjali Reagan CT ANKLE RT WO CONon 021 CT ANKLE RT WO CON Normal [facility] XR ANKLE RT MIN 3 VIEWSon XR ANKLE RT MIN 3 VIEWS Normal [facility] XR ANKLE RT MIN 3 VIEWSon XR ANKLE RT MIN 3 VIEWS Normal [facility] Otolaryngology Office/Clinic Noteon 01-19-2021 Otolaryngology Office/Clinic Note [...] Dr. Freed. Previous pathology by physician in [place] about 1 year ago. PMHx of multiple [...] 2. Basal (more content not included)... Normal [facility] BASIC METABOLIC PANEL W/O CA on 01-15-2021 Chloride [Moles/Vol] 98 mmol/L Normal 98-110 [facility] Comment on above: Order Comment: FASTI NG:YESFASTING: YES Performed By: #### 1 2109, 908, 410 #### [facility] [address], [address] [place] [phone] Performance Specialist: Juan Meraz MD CO2 [Moles/Vol] 26 mmol/L Normal 20-32 [facility] Comment on above: Order Comment: FASTI NG:YESFASTING: YES Performed By: #### 1 0165, 495, 905 #### [facility] [address], [address] [place] [address] Performance Specialist: Juan Meraz MD Creatinine [Mass/Vol] 1.71 mg/dL High 0.70-1.25 [facility] Comment on above: Order Comment: FASTI NG:YESFASTING: YES Result Comment: For patients >49 years of age, the reference limit for Creatinine is approximately 13% higher for people identified as -Lithuanian. Performed By: #### 1 016, 496, 905 #### [facility] [address], [address] [place] [address] Performance Specialist: Juan Meraz MD eGFR NON-AFR. MACANESE 42 mL/min/1.73m2 Low > OR = 60 [facility] Comment on above: Order Comment: FASTI NG:YESFASTING: YES Performed By: #### 1 164, 173, 905 #### [facility] [place] [address] Performance Specialist: Juan Meraz MD GFR/1.73 sq M.predicted among blacks MDRD (S/P/Bld) [Vol rate/Area] 48 mL/min/{1.73_m2} Low > OR = 60 [facility] Comment on above: Order Comment: FASTI NG:YESFASTING: YES Performed By: #### 1 164, 499, 905 #### [facility] [place] [address] Performance Specialist: Juan Meraz MD Glucose [Mass/Vol] 186 mg/dL High 65-99 [facility] Comment on above: Order Comment: FASTI NG:YESFASTING: YES Result Comment: Fasting reference interval For someone without known diabetes, a glucose value >125 mg/dL indicates that they may have diabetes and this should be confirmed with a follow-up test. Performed By: #### 1 016, 492, 905 #### [facility] [place] [address] Performance Specialist: Juan Meraz MD Potassium [Moles/Vol] 4.3 mmol/L Normal 3.5-5.3 [facility] Comment on above: Order Comment: FASTI NG:YESFASTING: YES Performed By: #### 1 0165, 496, 905 #### [facility] [place] [address] Performance Specialist: Juan Meraz MD Sodium [Moles/Vol] 137 mmol/L Normal 135-146 [facility] Comment on above: Order Comment: FASTI NG:YESFASTING: YES Performed By: #### 1 0165, 496, 905 #### [facility] [place] [address] Performance Specialist: Juan Meraz MD Urea nitrogen [Mass/Vol] 34 mg/dL High 7-25 [facility] Comment on above: Order Comment: FASTI NG:YESFASTING: YES Performed By: #### 1 0165, 496, 905 #### [facility] [place] [address] Performance Specialist: Juan Meraz MD Urea nitrogen/Creatinine [Mass ratio] 20 mg/mg Normal 6-22 [facility] Comment on above: Order Comment: FASTI NG:YESFASTING: YES Performed By: #### 1 0165, 496, 905 #### [facility] [place] [address] Performance Specialist: Juan Meraz MD CBC (INCLUDES DIFF/PLT)on Basophils (Bld) [#/Vol] 0.026 10*3/uL Normal 0-200 [facility] Comment on above: Performed By: #### 1 0165, 496, 905 #### [facility] [place] [address] Performance Specialist: Juan Meraz MD Basophils/100 WBC (Bld) 0.3 % Normal [facility] Comment on above: Performed By: #### 1 0165, 496, 905 #### [facility] [address] [place] [address] Performance Specialist: Juan Meraz MD Eosinophils (Bld) [#/Vol] 0.202 10*3/uL Normal 15-500 [facility] Comment on above: Performed By: #### 1 0165, 496, 905 #### [facility] of [place] [address] Performance Specialist: Juan Meraz MD Eosinophils/100 WBC (Bld) 2.3 % Normal [facility] Comment on above: Performed By: #### 1 0165, 496, 905 #### [facility] [place] [address] Performance Specialist: uJan Meraz MD Erythrocyte distribution width (RBC) [Ratio] 15.7 % High 11.0-15.0 [facility] Comment on above: Performed By: #### 1 0165, 496, 905 #### [facility] [place] [address] Performance Specialist: Juan Meraz MD Hematocrit (Bld) [Volume fraction] 34.9 % Low 38.5-50.0 [facility] Comment on above: Performed By: #### 1 016, 496, 905 #### [facility] [place] [address] Performance Specialist: Juan Meraz MD Hemoglobin (Bld) [Mass/Vol] 10.9 g/dL Low 13.2-17.1 [facility] Comment on above: Performed By: #### 1 016, 496, 905 #### [facility] [place] [address] Performance Specialist: Juan Meraz MD Lymphocytes (Bld) [#/Vol] 0.748 10*3/uL Low 850-3900 [facility] Comment on above: Performed By: #### 1 016, 496, 905 #### [facility] [place] [address] Performance Specialist: Juan Meraz MD Lymphocytes/100 WBC (Bld) 8.5 % Normal [facility] Comment on above: Performed By: #### 1 0165, 496, 905 #### [facility] [place] [address] Performance Specialist: Juan Meraz MD MCH (RBC) [Entitic mass] 25.1 pg Low 27.0-33.0 [facility] Comment on above: Performed By: #### 1 0165, 496, 905 #### [facility] [place] [address] Performance Specialist: Juan Meraz MD MCHC (RBC) [Mass/Vol] 31.2 g/dL Low 32.0-36.[address] [facility] Comment on above: Performed By: #### 1 0165, 496, 905 #### [facility] [place] [address] Performance Specialist: Juan Meraz MD MCV (RBC) [Entitic vol] 80.4 fL Normal 80.0-100.0 [facility] Comment on above: Performed By: #### 1 0165, 496, 905 #### [facility] [place] [address] Performance Specialist: Juan Meraz MD Monocytes (Bld) [#/Vol] 0.889 10*3/uL Normal 200-950 [facility] Comment on above: Performed By: #### 1 016, 496, 905 #### [facility] [place] [address] Performance Specialist: Juan Meraz MD Monocytes/100 WBC (Bld) 10.1 % Normal [facility] Comment on above: Performed By: #### 1 0165, 496, 905 #### [facility] [place] [address] Performance Specialist: Juan Meraz MD Neutrophils (Bld) [#/Vol] 6.934 10*3/uL Normal 5880-7560 [facility] Comment on above: Performed By: #### 1 0165, 496, 905 #### [facility] of [place] [address] Performance Specialist: Juan Meraz MD Neutrophils/100 WBC (Bld) 78.8 % Normal [facility] Comment on above: Performed By: #### 1 0165, 496, 905 #### [facility] of [place] [address] Performance Specialist: Juan Meraz MD Platelet mean volume (Bld) [Entitic vol] 9.9 fL Normal 7.5-12.5 [facility] Comment on above: Performed By: #### 1 0165, 496, 905 #### [facility] of [place] [address] Performance Specialist: Juan Meraz MD Platelets (Bld) [#/Vol] 353 10*3/uL Normal 140-400 [facility] Comment on above: Performed By: #### 1 0165, 496, 905 #### [facility] [place] [address] Performance Specialist: Juan Meraz MD RBC (Bld) [#/Vol] 4.34 10*6/uL Normal 4.20-5.80 [facility] Comment on above: Performed By: #### 1 0165, 496, 905 #### [facility] [place] [address] Performance Specialist: Juan Meraz MD WBC (Bld) [#/Vol] 8.8 10*3/uL Normal 3.8-10.8 [facility] Comment on above: Performed By: #### 1 0165, 496, 905 #### [facility] of [place] [address] Performance Specialist: Juan Meraz MD Otolaryngology Office/Clinic Noteon 01-14-2021 [...] oral caps (more content not included)... Normal [facility] Otolaryngology Office/Clinic Noteon 01-12-2021 Otolaryngology Office/Clinic Note [...] Dr. Freed. Previous pathology by physician in [place] about 1 year ago. PMHx of multiple [...] separately bill (more content not included)... Normal [facility] Operative Reporton Operative Report Date: January 11, [...] severe issues. Electronically signed by Matt URENA Chirag Ousmane 01/11/21 20:09 EDT Normal [facility] Operative Report Date: January 11, 2021 Preoperative [...] URENA Chirag Ousmane 01/11/21 09:28 EDT Normal [facility] POC Glucose Randomon 021 Glucose [Mass/Vol] 211 mg/dL High 70-99 [facility] Comment on above: Performed By: #### C D:[id number] ####[address] 01-10-2021 Employed in healthcare? Unknown Normal B [facility] Comment on above: Performed By: #### C D:[id number] ####[address] [address] Group care resident? Unknown Normal [facility] Comment on above: Performed By: #### C D:[id number] ####[address] [address] In ICU? No Normal [facility] Comment on above: Performed By: #### C D:[id number] ####[place] [id number] [place] [address] status? Not Applicable Normal [facility] Comment on above: Performed By: #### C D:[id number] ####[address] [address] SARS-CoV-2 (COVID-19) RNA MEREDITH+probe Ql (Unsp spec) Normal Negative [facility] Comment on above: Result Comment: * Ne [...] Negative ADDITIONAL INFORMATION: Testing performed on the Evitis 3600 using the SARS-CoV-2 Antigen test. Results are for the identification of SARS-CoV-2 nucleocapsid antigen. [facility] SARS-CoV-2 Antigen test can detect both viable [...] Administration?s Emergency Use Authorization. HCP Fact Sheet: https://www.fda.gov/media/720086/download Patient Fact Sheet: https://www.fda.gov/media/486962/download Performed By: #### C D:[id number] ####[place] [address] SARS-CoV-2 (COVID-19) RNA MEREDITH+probe Ql (Unsp spec) Unknown Normal [facility] Comment on above: Performed By: #### C [id number] ####[place] [address] Symptomatic as defined by CDC? Unknown Normal [facility] Comment on above: Performed By: #### C [id number] ####[place] [address] BASIC METABOLIC PANELon 10-0 Calcium [Mass/Vol] 9.6 mg/dL Normal 8.6-10.3 [facility] Comment on above: Performed By: #### 1 0165, 496, 905 #### [facility] [place] [address] Performance Specialist: Juan Meraz MD Chloride [Moles/Vol] 100 mmol/L Normal 98-110 [facility] Comment on above: Performed By: #### 1 0165, 497, 905 #### [facility] [place] [address] Performance Specialist: Juan Meraz MD CO2 [Moles/Vol] 30 mmol/L Normal 20-32 [facility] Comment on above: Performed By: #### 1 0165, 498, 905 #### [facility] [place] [address] Performance Specialist: Juan Meraz MD Creatinine [Mass/Vol] 1.67 mg/dL High 0.70-1.[address] [facility] Comment on above: Result Comment: For patients >49 years of age, the reference limit for Creatinine is approximately 13% higher for people identified as -Lithuanian. Performed By: #### 1 0165, 49, 905 #### [facility] [address] [place] [address] Performance Specialist: Juan Meraz MD eGFR NON-AFR. MACANESE 43 mL/min/1.73m2 Low > OR = 60 [facility] Comment on above: Performed By: #### 1 0165, 493, 905 #### [facility] [place] [address] Performance Specialist: Juan Meraz MD GFR/1.73 sq M.predicted among blacks MDRD (S/P/Bld) [Vol rate/Area] 50 mL/min/{1.73_m2} Low > OR = 60 [facility] Comment on above: Performed By: #### 1 0165, 492, 905 #### [facility] [place] [address] Performance Specialist: Juan Meraz MD Glucose [Mass/Vol] 124 mg/dL High 65-99 [facility] Comment on above: Result Comment: Fasting reference interval For someone without known diabetes, a glucose value between 100 and 125 mg/dL is consistent with prediabetes and should be confirmed with a follow-up test. Performed By: #### 1 016, 49, 905 #### [facility] [place] [address] Performance Specialist: Juan Meraz MD Potassium [Moles/Vol] 4.7 mmol/L Normal 3.5-5.[address] [facility] Comment on above: Performed By: #### 1 0165, 490, 905 #### [facility] [place] [address] Performance Specialist: Juan Meraz MD Sodium [Moles/Vol] 138 mmol/L Normal 135-146 [facility] Comment on above: Performed By: #### 1 0165, 495, 905 #### [facility] [place] [address] Performance Specialist: Juan Meraz MD Urea nitrogen [Mass/Vol] 40 mg/dL High 7-25 [facility] Comment on above: Performed By: #### 1 0165, 496, 905 #### [facility] [address], [address] [place] [address] Performance Specialist: Juan Meraz MD Urea nitrogen/Creatinine [Mass ratio] 24 mg/mg High - [facility] Comment on above: Performed By: #### 1 0165, 496, 905 #### [facility] [address], [address] [place] [address] Performance Specialist: Juan Meraz MD HEMOGLOBIN A1con 12-31-2020 HEMOGLOBIN [...] 1 0165, 496, 905 #### [facility] [address], [address] [place] [address] Performance Specialist: Juan Meraz MD Provider Letteron 12-31-2020 Provider Letter [facility] Ear, Nose & Throat; Facial Plastic Surgery [address] [place] [address] P: [phone] F: [phone] Chirag Gutierrez DO, [facility] Re: Anai [id number] Date of Visit: 01/05/2021 ATTENTION MEDICAL RECORDS: We are requesting pathology report for biopsy of left ear done within the last 2 years for patient Anai Goodman 59. Thank you, [facility] Provider Letter [facility] Ear, Nose & Throat; Facial Plastic Surgery [address] [place] [address] P: [phone] F: [phone] Chirag Gutierrez DO, [facility] Re: Anai [id number] Date of Visit: 01/05/2021 ATTENTION MEDICAL RECORDS: We are requesting pathology report for biopsy of left ear done within the last 2 years for patient Anai Goodman. [facility], [facility] Provider Letter [facility] Ear, Nose & Throat; Facial Plastic Surgery [address] [facility], [place] [address] P: [phone] F: [phone] Chirag Gutierrez DO [facility] Deon Brito [address] [place] [address] [place] [address] Re: Anai [id number] Date of Visit: 01/05/2021 Patient is a mutual patient, referred to us by your office for lesion of his left ear. We are in need of his previous pathology report for this, he returns to our office for biopsy of this lesion on 01/05/21. We would appreciate if you could please fax over this information prior to 01/05/21. Thank you, [facility] URIC ACIDon 12-31-2020 Urate [Mass/Vol] 10.3 mg/dL High 4.0-8.0 [facility] Comment on above: Order Comment: FASTI NG:YES FASTING: YES Result Comment: Ther apeutic target for gout patients: <6.0 mg/dL Performed By: #### 1 0574, 748, 008 #### [facility] [address], [address] [place] [address] Performance Specialist: Juan Meraz MD Provider Letteron 12-17-2020 Provider Letter Deon Brito [address] [address] Re: Anai Goodman Date of Visit: 12/15/2020 Dear Deon Braxton, I am referring Anai to your office for care. Attached your will find my notes and impressions from our visit. Deon Braxton DO Re:Anai Goodman 1955 Date of Visit: 12/15/2020 Dear Deon Braxton DO: I had the pleasure of evaluating patient, Anai Goodman, in the [facility] clinic on 12/15/2020. Attached you [...] Gutierrez, DO [facility] [place] [address] Let me know if you have any questions or concerns. Sincerely, Tyesha Dunne Providers: The following document(s) were included in the letter: December 15, 2020 13:30:00 EDT - (12/15/2020) Office Visit Note Normal [facility] Otolaryngology Office/Clinic Noteon 12-15-2020 Otolaryngology Office/Clinic Note [...] Dr. Freed. Previous pathology by physician in [place] about 1 year ago. PMHx of multiple [...] mL, 1 Refill(s), 12/18/20 14:00:00 EDT, [id number] Medical Decision Making Chronic conditions NOT treated [...] 5000 intl (more content not included)... Normal [facility] Otolaryngology Office/Clinic Note Chief Complaint BCC of [...] Dr. Freed. Previous pathology by physician in [place] about 1 year ago. PMHx of multiple [...] meal to (more content not included)... Normal [facility] XR ANKLE RT MIN 3 VIEWSon XR ANKLE RT MIN 3 VIEWS Normal [facility] XR FOOT RT MIN 3 VIEWSon XR FOOT RT MIN 3 VIEWS Normal [facility] XR FOOT RT MIN 3 VIEWSon XR FOOT RT MIN 3 VIEWS Normal [facility] XR FOOT RT MIN 3 VIEWSon XR FOOT RT MIN 3 VIEWS Normal [facility] Consultation Noteon 05-11-19 21 Consultation Note [id number]:[id number] Normal [facility] Vital Signs Date Time Vital Sign Value Performing Clinician Facility 04-12-2023 11:11-0500 Body height 182.9 cm Terry Lock KRUNAL-VEHICLE REFINISHER Work Phone: [facility] [employer] 04-12-2023 11:11-0500 Body mass index (BMI) [Ratio] 28.89 kg/m2 Terry Lock KRUNAL-VEHICLE REFINISHER [facility] 04-12-2023 11:11-0500 Body weight 96.62 kg Terry Lock KRUNAL-VEHICLE REFINISHER [facility] 04-12-2023 11:11-0500 Diastolic blood pressure 74 mm[Hg] Terry Lock BOX PACKER-VEHICLE REFINISHER [facility] 04-12-2023 11:11-0500 Heart rate 74 /min Terry Lock BOX PACKER-VEHICLE REFINISHER [facility] 04-12-2023 11:11-0500 SaO2% (BldA) [Mass fraction] 97 % Terry Lock APRN-VEHICLE REFINISHER Work Phone: [employer] 04-12-2023 11:11-0500 Systolic blood pressure 126 mm[Hg] Terry Lock APRN-VEHICLE REFINISHER Work Phone: [employer] 12-05-2022 13:00-0400 Body height 177.8 cm Ghanshyam Kaye Other [facility] Other 12-05-2022 13:00-0400 Diastolic blood pressure 70 mm[Hg] Ghanshyam Kaye Other [facility] Other 12-05-2022 13:00-0400 SaO2% (BldA) [Mass fraction] 97 % Ghanshyam Kaye Other [facility] Other 12-05-2022 13:00-0400 Systolic blood pressure 110 mm[Hg] Ghanshyam Kaye Other [facility] Other 10-05-2022 10:00-0400 Body height 177.8 cm Dung Serna Other [facility] Other 10-05-2022 10:00-0400 Body mass index (BMI) [Ratio] 31.85 kg/m2 Dung Serna Other [facility] Other 10-05-2022 10:00-0400 Body weight 100.7 kg Dung Serna Other [facility] Other 10-05-2022 10:00-0400 Diastolic blood pressure 70 mm[Hg] Dung Kareem Other [facility] Other 10-05-2022 10:00-0400 Systolic blood pressure 118 mm[Hg] Dung Serna Other [facility] Other 06-02-2022 11:00-0500 Body height 177.8 cm Reddy Brandt Other [facility] Other 06-02-2022 11:00-0500 Body mass index (BMI) [Ratio] 30.13 kg/m2 Reddy Brandt Other [facility] Other 06-02-2022 11:00-0500 Body weight 95.26 kg Reddy Brandt Other [facility] Other 03-15-2022 13:45-0500 Body height 177.8 cm Reddy Karly Other [facility] Other 03-15-2022 13:45-0500 Body mass index (BMI) [Ratio] 30.85 kg/m2 Reddy Karly Other [facility] Other 03-15-2022 13:45-0500 Body weight 97.52 kg Reddy Brandt Other [facility] Other 02-07-2022 14:00-0500 Body height 177.8 cm Ghanshyam Kaye Other [facility] Other 02-07-2022 14:00-0500 Body mass index (BMI) [Ratio] 30.85 kg/m2 Ghanshyam Kaye Other [facility] Other 02-07-2022 14:00-0500 Body weight 97.52 kg Ghanshyam Kaye Other [facility] Other 02-07-2022 14:00-0500 Diastolic blood pressure 72 mm[Hg] Ghanshyam Shermaney Other [facility] Other 02-07-2022 14:00-0500 SaO2% (BldA) [Mass fraction] 98 % Ghanshyam Kaye Other [facility] Other 02-07-2022 14:00-0500 Systolic blood pressure 118 mm[Hg] Ghanshyam Kaye Other [facility] Other 11-29-2021 14:35-0400 Diastolic blood pressure 78 mm[Hg] DO Deon Tashahas Work Phone: [facility] 11-29-2021 14:35-0400 Heart rate 75 /min DO Deon Yuhas Work Phone: [facility] 11-29-2021 14:35-0400 Respiratory rate 16 /min DO Deon Yuhas Work Phone: [facility] 11-29-2021 14:35-0400 SaO2% (BldA) [Mass fraction] 95 % DO Deon Tashahas Work Phone: [facility] 11-29-2021 14:35-0400 Systolic blood pressure 123 mm[Hg] DO Deon Cordovahas Work Phone: [facility] 11-29-2021 13:39-0400 Inhaled oxygen flow rate 8 L/min DO Deon Cordovahas Work Phone: [facility] 11-29-2021 13:24-0400 Body temperature 98.5 [degF] DO Deon Cordovahas Work Phone: [facility] 11-29-2021 12:10-0400 Body height 182.88 cm DO Deon Cordovahas Work Phone: [facility] 11-29-2021 12:10-0400 Body mass index (BMI) [Ratio] 30.5 kg/m2 DO Deon Cordovahas Work Phone: [facility] 11-29-2021 12:10-0400 Body weight 102.05 kg DO Deon Ramoss Work Phone: [facility] 11-03-2021 10:41-0400 Diastolic blood pressure 66 mm[Hg] DO Deon Cordovahas Work Phone: [facility] 11-03-2021 10:41-0400 Heart rate 78 /min DO Deon Cordovahas Work Phone: [facility] 11-03-2021 10:41-0400 Respiratory rate 16 /min DO Deon Cordovahas Work Phone: [facility] 11-03-2021 10:41-0400 SaO2% (BldA) [Mass fraction] 97 % DO Deon Tashahas Work Phone: [facility] 11-03-2021 10:41-0400 Systolic blood pressure 121 mm[Hg] DO Deon Tashahas Work Phone: [facility] 11-03-2021 09:41-0400 Body temperature 98 [degF] DO Deon Tashahas Work Phone: [facility] 11-03-2021 09:11-0400 Inhaled oxygen flow rate 8 L/min DO Deon Cordovahas Work Phone: [facility] 11-03-2021 07:37-0400 Body height 182.88 cm DO Deon Tashahas Work Phone: [facility] 11-03-2021 07:37-0400 Body mass index (BMI) [Ratio] 30.5 kg/m2 DO Deno Tashahas Work Phone: [facility] 11-03-2021 07:37-0400 Body weight 102.05 kg DO Deon Tashahas Work Phone: [facility] 11-01-2021 18:03-0400 Diastolic blood pressure 69 mm[Hg] DO Deon Cordovahas Work Phone: [facility] 11-01-2021 18:03-0400 Heart rate 71 /min DO Deon Cordovahas Work Phone: [facility] 11-01-2021 18:03-0400 Respiratory rate 16 /min DO Deon Cordovahas Work Phone: [facility] 11-01-2021 18:03-0400 SaO2% (BldA) [Mass fraction] 99 % DO Deon Cordovahas Work Phone: [facility] 11-01-2021 18:03-0400 Systolic blood pressure 124 mm[Hg] DO Deon Tashahas Work Phone: [facility] 11-01-2021 16:21-0400 Body height 182.88 cm DO Deon Tashahas Work Phone: [facility] 11-01-2021 16:21-0400 Body temperature 98 [degF] DO Deon Yuhas Work Phone: [facility] 11-01-2021 16:21-0400 Body weight 102.05 kg DO Deon Yuhas Work Phone: [facility] 10-31-2021 10:30-0400 Body height 177.8 cm Reddy Brandt Other [facility] [employer] Other 10-27-2021 05:00-0400 Body temperature 98.6 [degF] DO Deon Cordovahas Work Phone: [facility] 10-27-2021 05:00-0400 Diastolic blood pressure 72 mm[Hg] DO Deon Yuhas Work Phone: [facility] 10-27-2021 05:00-0400 Heart rate 70 /min DO Deon Yuhas Work Phone: [facility] 10-27-2021 05:00-0400 Respiratory rate 16 /min DO Deon Cordovahas Work Phone: [facility] 10-27-2021 05:00-0400 SaO2% (BldA) [Mass fraction] 98 % DO Deon Tashahas Work Phone: [facility] 10-27-2021 05:00-0400 Systolic blood pressure 132 mm[Hg] DO Deon Tashahas Work Phone: [facility] 10-24-2021 12:00-0400 Body height 182.88 cm DO Deon Cordovahas Work Phone: [facility] 10-23-2021 05:26-0400 Body weight 70.9 kg DO Deon Yuhas Work Phone: [facility] 10-22-2021 04:14-0400 Inhaled oxygen concentration 21 % DO Deon Yuhas Work Phone: [facility] 10-21-2021 12:00-0400 Body temperature 98.1 [degF] DO Deon Yuhas Work Phone: [facility] 10-21-2021 12:00-0400 Diastolic blood pressure 73 mm[Hg] DO Deon Yuhas Work Phone: [facility] 10-21-2021 12:00-0400 Heart rate 76 /min DO Deon Ramoss Work Phone: [facility] 10-21-2021 12:00-0400 Respiratory rate 18 /min DO Deon Braxton Work Phone: [facility] 10-21-2021 12:00-0400 SaO2% (BldA) [Mass fraction] 95 % DO Deon Braxton Work Phone: [facility] 10-21-2021 12:00-0400 Systolic blood pressure 128 mm[Hg] DO Deon Ramoss Work Phone: [facility] 10-21-2021 06:00-0400 Body weight 99.9 kg DO Deon Braxton Work Phone: [facility] 10-21-2021 02:05-0400 Inhaled oxygen concentration 21 % DO Deon Braxton Work Phone: [facility] 10-19-2021 11:00-0400 Body height 182.88 cm DO Deon Braxton Work Phone: [facility] 10-18-2021 15:37-0400 Inhaled oxygen flow rate 6 L/min DO Deon Braxton Work Phone: [facility] 10-18-2021 13:19-0400 Body mass index (BMI) [Ratio] 29.8 kg/m2 DO Deon Braxton Work Phone: [facility] 10-12-2021 10:00-0400 Body height 177.8 cm Reddy Brandt Other [facility] Other 10-12-2021 10:00-0400 Body mass index (BMI) [Ratio] 32.28 kg/m2 Reddy Brandt Other [facility] Other 10-12-2021 10:00-0400 Body weight 102.06 kg Reddy Brandt Other [facility] Other 10-06-2021 14:15-0400 Body height 177.8 cm Pako Aguilar Other [facility] Other 10-06-2021 14:15-0400 Body mass index (BMI) [Ratio] 32.28 kg/m2 Pako Aguilar Other [facility] Other 10-06-2021 14:15-0400 Body temperature 97.3 [degF] Pako Aguilar Other [facility] Other 10-06-2021 14:15-0400 Body weight 102.06 kg Pako Aguilar Other [facility] Other 10-06-2021 14:15-0400 Diastolic blood pressure 73 mm[Hg] Pako Leon Other [facility] Other 10-06-2021 14:15-0400 Systolic blood pressure 127 mm[Hg] Pako Leon Other [facility] Other 09-08-2021 15:30-0400 Body height 177.8 cm Pako Aguilar Other [facility] Other 09-08-2021 15:30-0400 Body temperature 98.1 [degF] Pako Aguilar Other [facility] Other 09-08-2021 15:30-0400 Diastolic blood pressure 73 mm[Hg] Pako Aguilar Other [facility] Other 09-08-2021 15:30-0400 Systolic blood pressure 149 mm[Hg] Pako Aguilar Other [facility] Other Encounters Encounter Date Encounter Type Care Provider Facility Start: 04-19-2023 End: 04-19-2023 ambulatory Deon Braxton Facility:[facility] Start: 04-19-2023 End: 04-19-2023 ambulatory DO Deon Braxton Work Phone: [facility] Work Phone: Start: 04-19-2023 End: 04-19-2023 Departed Referred DO Deon Braxton Work Phone: [facility] Start: 04-13-2023 Stevie londono [facility] Comment on above: 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, with long-term current use of insulin ([facility]) Start: 04-12-2023 End: 04-12-2023 ambulatory TERRY LOCK [facility] Start: 04-12-2023 Encounter for preprocedural cardiovascular examination TERRY LOCK [facility] Start: 04-12-2023 End: 04-12-2023 Office outpatient visit 25 minutes Terry Lock APRN-VEHICLE REFINISHER Work Phone: [facility] Comment on above: Preop cardiovascular exam (Primary Dx); Coronary artery disease involving pilot station coronary artery of pilot station heart without angina pectoris; Ischemic cardiomyopathy; Chronic systolic congestive heart failure ([facility]); Apical mural thrombus; Essential (primary) hypertension; Cardiac defibrillator in place- [employer]; Mixed hyperlipidemia Start: 04-12-2023 End: 04-12-2023 Patient encounter status Terry Leo BOX PACKER-VEHICLE REFINISHER Work Phone: [employer] Work Phone: Start: 04-05-2023 End: 04-06-2023 ambulatory YOVANNY CALHOUN [facility] Start: 04-03-2023 End: 04-03-2023 ambulatory Dung Serna Other [facility] Other Start: 04-03-2023 Telephone encounter Dung Serna [facility] Start: 03-22-2023 End: 03-22-2023 ambulatory YOVANNY CALHUON Not Available Start: 03-22-2023 End: 03-22-2023 ambulatory YOVANNY CALHOUN Not Available Start: 03-07-2023 End: 03-07-2023 ambulatory YOVANNY CALHOUN Not Available Start: 01-11-2023 End: 01-11-2023 ambulatory Ghanshyam Kaye Other [facility] Other Start: 01-11-2023 Telephone encounter Ghanshyam Vargas [facility] Start: 12-05-2022 End: 12-05-2022 ambulatory Ghanshyam Kaye Other [facility] Other Start: 12-05-2022 Office outpatient vi sit 15 minutes Ghanshyam Kaye [facility] Start: 10-05-2022 Office outpatient ne w 30 minutes Dung Serna [facility] Neurosurgery Start: 10-05-2022 End: 10-05-2022 ambulatory Dung E Kareem [facility] Other Start: 08-02-2022 End: 08-02-2022 ambulatory Reddy Brandt Other [facility] Other Start: 08-02-2022 Office outpatient vi sit 15 minutes Reddy Brandt [facility] Start: 06-02-2022 End: 06-02-2022 ambulatory Reddy Brandt Other [facility] Other Start: 06-02-2022 Postop follow up vis it related to original px Reddy Brandt [facility] Start: 05-12-2022 End: 05-12-2022 ambulatory Reddy Brandt Other [facility] Other Start: 05-12-2022 Telephone encounter Reddy Brandt [facility] Start: 05-03-2022 End: 05-03-2022 ambulatory Deon Braxton Facility:[facility] Start: 05-03-2022 End: 05-03-2022 ambulatory DO Deon Braxton Work Phone: [facility] Work Phone: Start: 05-03-2022 End: 05-03-2022 Patient encounter procedure DO Deon Braxton Work Phone: [facility]-Adult Day Care [address] Start: 04-28-2022 End: 04-28-2022 ambulatory Reddy Brandt Other [facility] Other Start: 04-28-2022 Office outpatient vi sit 15 minutes Reddy Brandt [facility] Start: 04-17-2022 End: 04-17-2022 ambulatory Reddy Brandt Other [facility] Other Start: 04-17-2022 Telephone encounter Reddy Brandt FP [facility] Start: 04-12-2022 End: 04-12-2022 ambulatory Reddy Brandt Other [facility] Other Start: 04-12-2022 Postop follow up vis it related to original px Reddy Brandt [facility] Start: 03-15-2022 End: 03-15-2022 ambulatory Reddy Brandt Other [facility] Other Start: 03-15-2022 Office outpatient vi sit 15 minutes Reddy Brandt [facility] Start: 02-07-2022 End: 02-07-2022 ambulatory Ghanshyam Kaye Other [facility] Other Start: 02-07-2022 Office outpatient vi sit 15 minutes Ghanshyam Kaye [facility] Start: 02-03-2022 End: 02-03-2022 ambulatory Reddy Brandt Other [facility] Other Start: 02-03-2022 Postop follow up vis it related to original px Reddy Karly [facility] Start: 01-24-2022 End: 01-24-2022 ambulatory Reddy Brandt Other [facility] Other Start: 01-24-2022 Telephone encounter Reddy Gil [facility] Start: 01-20-2022 End: 01-20-2022 ambulatory Reddy Meehanley Other [facility] Other Start: 01-20-2022 Postop follow up vis it related to original px Reddy Karly [facility] Start: 01-16-2022 End: 01-16-2022 ambulatory Reddy Brandt Other [facility] Other Start: 01-16-2022 Telephone encounter Reddy [facility] Start: 01-06-2022 End: 01-06-2022 ambulatory Reddy Brandt Other [facility] Other Start: 01-06-2022 Postop follow up vis it related to original px Reddy Karly [facility] Start: 12-23-2021 End: 12-23-2021 ambulatory Reddy Brandt Other [facility] Other Start: 12-23-2021 Postop follow up vis it related to original px Reddy Karly [facility] Start: 12-20-2021 End: 12-20-2021 Discharged Recurring DO Deon Braxton Work Phone: [facility]-Infusion Therapy - O/P Start: 12-14-2021 End: 12-14-2021 ambulatory Reddy Brandt Other [facility] Other Start: 12-14-2021 Postop follow up vis it related to original px Reddy Karly [facility] Start: 12-12-2021 End: 12-12-2021 ambulatory Reddybryan Brandt Other [facility] Other Start: 12-12-2021 Telephone encounter Reddy MOE [facility] Start: 12-09-2021 End: 12-09-2021 ambulatory Reddy Brandt Other [facility] Other Start: 12-09-2021 Postop follow up vis it related to original px Reddy Brandt [facility] Start: 11-29-2021 End: 11-29-2021 Evaluation and management of inpatient DO Deon Tashadonna Work Phone: [address] Start: 11-29-2021 End: 11-29-2021 Admission to same day surgery center DO Deon [facility]ashadonna [facility] [place] [facility] [place] Start: 11-28-2021 End: 11-28-2021 ambulatory Reddy Brandt Other [facility] Other Start: 11-28-2021 Postop follow up vis it related to original px Reddy Brandt [facility] Start: 11-21-2021 End: 11-21-2021 ambulatory Reddy Brandt Other [facility] Other Start: 11-21-2021 Telephone encounter Reddy MOE [facility] Start: 11-03-2021 End: 11-03-2021 Admission to same day surgery center DO Deon Braxton [facility] [place] [facility] [place] Start: 11-02-2021 End: 11-02-2021 ambulatory Reddy Brandt Other [facility] Other Start: 11-02-2021 Postop follow up vis it related to original px Reddy Karly [facility] Start: 11-02-2021 End: 11-02-2021 Patient encounter procedure DO Deon Braxton Work Phone: [facility]-Pre-Surgical Testing Start: 11-01-2021 End: 11-01-2021 Emergency department patient visit DO Deon Braxton Work Phone: [facility]-Emergency Room Start: 11-01-2021 End: 11-01-2021 ambulatory Reddy Brandt Other [facility] Other Start: 11-01-2021 Telephone encounter Reddy MOE [facility] Start: 10-31-2021 End: 10-31-2021 ambulatory Reddy Brandt Other [facility] Other Start: 10-31-2021 Postop follow up vis it related to original px Reddy Brandt [facility] Start: 10-21-2021 End: 10-27-2021 Evaluation and management of inpatient DO Deon Braxton Work Phone: [facility] Start: 10-18-2021 End: 10-21-2021 Evaluation and management of inpatient DO Deon Braxton Work Phone: [facility] Start: 10-14-2021 End: 10-14-2021 Patient encounter procedure DO Deon Braxton Work Phone: [facility]-Pre-Surgical Testing Start: 10-12-2021 End: 10-12-2021 ambulatory Reddy Brandt Other [facility] Other Start: 10-12-2021 Office outpatient vi sit 25 minutes Reddy Brandt [facility] Start: 10-10-2021 End: 10-10-2021 Patient encounter procedure DO Deon Braxton Work Phone: [facility]-MRI [facility] [place] Start: 10-06-2021 End: 10-06-2021 Patient encounter procedure DO Deon Braxton Work Phone: [facility]-Lab [facility] [place] Start: 10-06-2021 End: 10-06-2021 ambulatory Reddy Brandt Other [facility] Other Start: 10-06-2021 Office outpatient vi sit 25 minutes Pako Aguilar [facility] Start: 10-06-2021 Telephone encounter [facility] Start: 09-29-2021 End: 09-29-2021 Patient encounter procedure DO Deon Braxton Work Phone: [facility]-Pacemaker Check Start: 09-26-2021 End: 09-26-2021 ambulatory Reddy Brandt Other [facility] Other Start: 09-26-2021 Telephone encounter [facility] Start: 09-21-2021 End: 09-21-2021 Patient encounter procedure DO Deon Braxton Work Phone: [facility] Start: 09-21-2021 ambulatory SALINA LEE Faci lity:[facility]1 Start: 09-09-2021 End: 09-10-[address] DEON BRAXTON Facility:[facility] Start: 09-09-2021 End: 09-10-2021 ambulatory SALINA LEE Facility:[facility] Start: 09-08-2021 End: 09-08-2021 ambulatory Pako Aguilar Other [facility] Other Start: 09-08-2021 Office outpatient vi sit [...] LEE Facility:[facility] Start: 02-28-2021 [facility] Start: 02-23-2021 End: 02-24-2021 ambulatory SALINA LEE Facility:[facility] Start: 02-22-2021 ambulatory DEON PAKAKILA Ho lity:[facility] Start: 02-17-2021 End: 02-18-2021 ambulatory SALINA LEE Facility:[facility] Start: 02-09-2021 Encounter for preprocedural laboratory examination SALINA LEE [facility] Start: 02-08-2021 End: 02-12-2021 Evaluation and [...] Start: 01-11-2021 End: 01-11-2021 ambulatory DEON BRAXTON Facility:[facility] Start: 01-10-2021 End: 01-11-2021 ambulatory DEON BRAXTON Facility:[facility] Start: 12-08-2020 End: 12-09-[address] DEON BRAXTON Facility:[facility] Start: 12-03-2020 End: 12-04-[address] DEON BRAXTON Facility:[facility] Start: 11-29-2020 End: 11-30-2020 ambulatory SALINA LEE Facility:[facility] Start: 11-25-2020 End: 11-26-2020 ambulatory SALINA Walker [facility] Facility:[facility] Start: 11-22-2020 End: 11-23-2020 ambulatory BALJEET LEONG Facility:[facility] Start: 11-18-2020 End: 11-19-2020 ambulatory BALJEET LEONG Facility:[facility] Start: 11-11-2020 End: 11-12-2020 ambulatory BALJEET LEONG Facility:[facility] Start: 11-04-2020 End: 11-05-2020 ambulatory SALINA LEE Facility:[facility] Procedures Date Procedure Procedure Detail Performing Clinician Start: 04-12-2023 Ecg routine ecg w/le ast 12 lds w/i&r Terry Lock APRN-VEHICLE REFINISHER Work Phone: Start: 03-22-2023 Adult depression scr eening assessment Terry Lock APRN-VEHICLE REFINISHER Work Phone: Start: 12-29-2022 Diabetic retinal eye exam Terry Lock APRN-VEHICLE REFINISHER Work Phone: Start: 10-26-2022 Microalbumin [Mass/v olume] in Urine by Test strip Terry Lock BOX PACKER-VEHICLE REFINISHER Work Phone: Start: 11-29-2021 Incision and drainag [...] Joint with Internal Fixation Device, Open Approach [facility] Start: 02-11-2021 Introduction of Othe r Anti-infective into Joints, Open Approach [facility] Start: 02-11-2021 Removal of Spacer fr om Right Ankle Joint, Percutaneous Approach [facility] Start: 02-08-2021 Excision of Right Fi bula, Open Approach [facility] Start: 02-08-2021 Introduction of Othe r Anti-infective into Joints, Open Approach [facility] Start: 02-08-2021 Removal of Internal Fixation Device from Right Ankle Joint, Open Approach [facility] Aerobic microbial culture DO Deon Braxton [...] Td Vaccines (2 - Td or Tdap) [facility] Start: 04-12-2024 Adult BMI Screening Adult BMI Screening [facility] Start: 04-12-2024 Tobacco Screening Tobacco Screening [facility] Start: 03-22-2024 Depression Screening Depression Screening [facility] Start: 03-22-2024 Fall Risk Screening Fall Risk Screening [facility] Start: 12-30-2023 Glaucoma screening Diabetic Ophthalmology Exam [facility] Start: 11-29-2023 End: 11-29-2023 Patient encounter procedure 11/29/2023 9:00 AM EDT Office Visit [facility] - Family Medicine [address] [place] [address] [facility] - [facility] Start: 11-24-2023 Medicare Annual Wellness Visit Medicare Annual Wellness Visit [facility] Start: 10-27-2023 Diabetic foot examination Diabetic Foot Exam [facility] Start: 10-27-2023 Urine screening for protein Urine Microalbumin [facility] Start: 11-29-2021 [facility] Start: 11-29-2021 [facility] Start: 11-29-2021 Incision and drainage of lower extremity OR I&D Exploration Upper/Lower Extremity (Right) [facility] Start: 11-29-2021 End: 11-29-2021 Admission to same day surgery center Below knee amputation [facility]-Surgery Center [facility] [place] Start: 11-03-2021 [facility] Start: 11-03-2021 [facility] Start: 11-03-2021 Amputation of right lower limb OR Leg Amputation Above/Below (Right) [facility] Start: 11-03-2021 End: 11-03-2021 Admission to same day surgery center Departed Surgical Day Care [facility]-Surgery Center [place] Start: 11-02-2021 End: 11-02-2021 Patient encounter procedure Departed Clinical [facility]-Pre-Surgical Testing Start: 11-01-2021 End: 11-01-2021 Emergency department patient visit Departed Emergency [facility]-Emergency Room Start: 10-27-2021 [facility] Work Phone: Start: 10-21-2021 Hospital admission [facility] Work Phone: Start: 10-21-2021 Referral to clinical litigation associate [facility] Work Phone: Start: 10-21-2021 [facility] Work Phone: Start: 10-18-2021 Referral to clinical litigation associate [facility] Work Phone: Start: 10-18-2021 Detachment at Right Lower Leg, Mid, Open Approach Detachment at Right Lower Leg, Mid, Open Approach [facility] Start: 10-17-2021 [facility] Work Phone: Start: 10-14-1975 Adult BMI Follow Up Plan Adult BMI Follow Up Plan [facility] Patient Education [facility] Work Phone: Patient referral [facility] Work Phone: SARS-CoV-2 (COVID-19 ) N gene [Presence] in Respiratory specimen by MEREDITH with probe detection [facility] Work Phone: Immunizations Immunization Date Immunization Notes Care Provider Fa bijal 03-12-2023 Covid-19,mrna, Lnp-s , Pf, 50mcg/0.5ml 12+ Terry Lock BOX PACKER-VEHICLE REFINISHER Work Phone: [facility] 03-12-2023 Influenza Vaccine, Quadrivalent, Adjuvanted Terry Lock BOX PACKER-VEHICLE REFINISHER Work Phone: [facility] 03-12-2023 RSV, mAb, nirsevimab-alip, 1 mL, to 24 months Terry Lock BOX PACKER-VEHICLE REFINISHER Work Phone: [facility] 03-12-2023 RSV, recombinant, protein subunit RSVpreF, adjuvant reconstituted, 0.5 mL, PF Terry Lock BOX PACKER-VEHICLE REFINISHER Work Phone: [facility] 06-14-2022 zoster vaccine recombinant Terry Lock BOX PACKER-VEHICLE REFINISHER Work Phone: [facility] 04-15-2022 Covid-19, Mrna, Lnp- s, Bivalent, Pf, 50mcg/0.5ml or 25mcg/0.25ml Terry Lock BOX PACKER-VEHICLE REFINISHER Work Phone: [facility] 04-15-2022 zoster vaccine recombinant Terry Lock BOX PACKER-VEHICLE REFINISHER Work Phone: [facility] 04-11-2022 Influenza, High-dose , Quadrivalent Terry Leo BOX PACKER-VEHICLE REFINISHER Work Phone: [facility] 03-01-2021 COVID-19 mRNA[facility]1273 (Moderna) [facility] Work [facility]: [facility] 03-01-2021 Seasonal, quadrivale nt, recombinant, injectable influenza vaccine, preservative free Terry Lock BOX PACKER-VEHICLE REFINISHER Work Phone: [facility] 06-25-2020 COVID-19 mRNA-1273 (Moderna) [facility] Work Phone: [facility] 05-28-2020 COVID-19, mRNA, LNP- S, PF, 100mcg/0.5mL Dose Terry Lock BOX PACKER-VEHICLE REFINISHER Work Phone: [facility] 05-25-2020 COVID-19, mRNA, LNP- S, PF, 100mcg/0.5mL Dose Terry Lock BOX PACKER-VEHICLE REFINISHER Work Phone: [facility] 01-14-2020 influenza, seasonal, injectable Terry Leo BOX PACKER-VEHICLE REFINISHER Work Phone: [facility] 12-30-2019 influenza, injectabl e, quadrivalent, preservative free Terry Lock BOX PACKER-VEHICLE REFINISHER Work Phone: [facility] 04-07-2019 Influenza, injectabl e, Madin Yumiko Canine Kidney, preservative free, quadrivalent Terry Lock BOX PACKER-VEHICLE REFINISHER Work Phone: [facility] 12-31-2018 pneumococcal conjuga te vaccine, 13 valent Terry Lock BOX PACKER-VEHICLE REFINISHER Work Phone: [facility] 01-23-2018 influenza, injectabl e, quadrivalent, contains preservative Terry Lock BOX PACKER-VEHICLE REFINISHER Work Phone: [facility] 01-23-2018 influenza, injectabl e, quadrivalent, preservative free Terry Lock BOX PACKER-VEHICLE REFINISHER Work Phone: [facility] 02-05-2017 influenza, injectabl e, quadrivalent, preservative free Terry Lock BOX PACKER-VEHICLE REFINISHER Work Phone: [facility] 02-05-2017 pneumococcal conjuga te vaccine, 13 valent Terry Lock BOX PACKER-VEHICLE REFINISHER Work Phone: [facility] 01-14-2017 influenza, injectabl e, quadrivalent, contains preservative Terry Lock BOX PACKER-VEHICLE REFINISHER Work Phone: [facility] 01-14-2016 tetanus toxoid, redu joseph diphtheria toxoid, and acellular pertussis vaccine, adsorbed Terry Lock BOX PACKER-VEHICLE REFINISHER Work Phone: [facility] 01-02-2016 influenza virus vacc ine, unspecified formulation Terry Lock BOX PACKER-VEHICLE REFINISHER Work Phone: [facility] 08-13-2015 zoster vaccine, live Terry Lock BOX PACKER-VEHICLE REFINISHER Work Phone: [facility] 12-22-2014 influenza, seasonal, injectable, preservative free Terry Lock BOX PACKER-VEHICLE REFINISHER Work Phone: [facility] 01-26-2014 pneumococcal conjuga te vaccine, 13 valent Terry Lock BOX PACKER-VEHICLE REFINISHER Work Phone: [facility] 01-12-2014 influenza, seasonal, injectable Terry Lock BOX PACKER-VEHICLE REFINISHER Work Phone: [facility] 01-12-2014 Seasonal trivalent influenza vaccine, adjuvanted, preservative free Terry Lock BOX PACKER-VEHICLE REFINISHER Work Phone: [employer] 09-17-2012 pneumococcal polysaccharide vaccine, 23 valent Terry Lock BOX PACKER-VEHICLE REFINISHER Work Phone: [employer] 09-17-2012 pneumococcal vaccine , unspecified formulation Terry Lock BOX PACKER-VEHICLE REFINISHER Work Phone: [employer] Payers Date Payer Category Payer Medicare [id number] 2023 Medicare [facility] ADV[facility] [id number] 2023-[facility] [phone] [address] [place] [address] [id number]. [id number] 2022 Self-pay [id number] 2022 Medicare [id number] 2021 Unknown 1959 Medicare [id number] 2.16.840.1.678243.19 1957 Unknown [id number] 2.840.1.082429.3.579.2.196 1957 Unknown [id number] 2.840.1.254681.3.579.2.196 1957 Unknown [id number] 2.840.1.517797.3.579.2.196 1957 Unknown [id number] 2.16840.1.131174.3.579.2.196 1957 Unknown [id number] 2.16.840.1.484960.3.579.2.593 1957 Unknown [id number] 2.16.840.1.944390.3.579.2.593 1957 Unknown [id number] 2.16.840.1.749506.3.579.2.593 1957 Unknown [id number] 2.16.840.1.253778.3.579.2.593 1957 Unknown [id number] 2.16.840.1.397310.3.579.2.593 1957 Unknown [id number] 2.16.840.1.468715.3.579.2.593 1957 Unknown [id number] 2.16.840.1.402360.3.579.2.593 1957 Unknown [id number] 2.16.840.1.887995.3.579.2.593 1957 Unknown [id number] 2.16.840.1.817999.3.579.2.593 1957 Unknown [id number] 2.16.840.1.456567.3.579.2.59 1957 Unknown [id number] 2.16.840.1.797228.3.579.2.593 1957 Unknown [id number] 2.16.840.1.440471.3.579.2.593 1957 Unknown [id number] 2.16.840.1.903885.3.579.2.593 1957 Unknown [id number] 2.16.840.1.970934.3.579.2.593 1957 Unknown [id number] 2.16.840.1.429001.3.579.2.593 1957 Unknown [id number] 2.16.840.1.161338.3.579.2.593 1957 Unknown [id number] 2.16.840.1.306521.3.579.2.593 1957 Unknown [id number] 2.16.840.1.253005.3.579.2.59 1957 Unknown [id number] 2.16.840.1.634434.3.579.2.593 1957 Unknown [id number] 2.16.840.1.646703.3.579.2.593 1957 Unknown [id number] 2.16.840.1.810158.3.579.2.593 1957 Unknown [id number] 2.16.840.1.039842.3.579.2.59 1957 Unknown [id number] 2.16.840.1.425684.3.579.2.593 1957 Unknown [id number] 2.16.840.1.952640.3.579.2. 1957 Unknown [id number] 2.16.840.1.752309.3.579.2. 1957 Unknown [id number] 2.16.840.1.198974.3.579.2.59 1957 Unknown [id number] 2.16.840.1.687164.3.579.2. 1957 Unknown [id number] 2.16.840.1.443522.3.579.2.593 1957 Unknown [id number] 2.16.840.1.434996.3.579.2.593 1957 Unknown [id number] 2.16.840.1.787677.3.579.2.59 1957 Unknown [id number] 2.16.840.1.213882.3.579.2.593 1957 Unknown [id number] 2.16.840.1.709015.3.579.2.59 1957 Unknown [id number] 2.16.840.1.249066.3.579.2.593 1957 Unknown [id number] 2.16.840.1.333055.3.579.2.593 1957 Unknown [id number] 2.16.840.1.263373.3.579.2.593 1957 Unknown [id number] 2.16.840.1.780105.3.579.2.593 1957 Unknown [id number] 2.16.840.1.637797.3.579.2.59 1957 Unknown [id number] 2.16.840.1.016975.3.579.2.593 1957 Unknown [id number] 2.16.840.1.677893.3.579.2. 1957 Unknown [id number] 2.16.840.1.768069.3.579.2.593 1957 Unknown [id number] 2.840.1.705972.3.579.2.59 1957 Unknown [id number] 2.16.840.1.752491.3.579.2.59 1957 Unknown [id number] 2.840.1.042195.3.579.2.59 1957 Unknown [id number] 2.16.840.1.748377.3.579.2.593 1957 Unknown [id number] 2.16.840.1.572944.3.579.2.593 1957 Unknown [id number] 2.16.840.1.986906.3.579.2.593 1957 Unknown [id number] 2.16.840.1.258725.3.579.2.59 1957 Unknown [id number] 2.16.840.1.775306.3.579.2.593 1957 Unknown [id number] 2.16.840.1.947220.3.579.2.593 1957 Unknown [id number] 2.16.840.1.702547.3.579.2.593 1957 Unknown [id number] 2.16.840.1.807954.3.579.2.593 1957 Unknown [id number] 2.16.840.1.767733.3.579.2.593 1957 Unknown [id number] 2.16.840.1.048995.3.579.2.593 1957 Unknown [id number] 2.16.840.1.136365.3.579.2.593 1957 Unknown [id number] 2.16.840.1.374957.3.579.2.593 1957 Unknown [id number] 2.16.840.1.679819.3.579.2.593 1957 Unknown [id number] 2.16.840.1.969705.3.579.2.593 1957 Unknown [id number] 2.16.840.1.859592.3.579.2.593 1957 Unknown [id number] 2.16.840.1.771604.3.579.2.1259 1957 Unknown [id number] 2.16.840.1.312569.3.579.2.1259 1957 Unknown [id number] 2.16.840.1.973677.3.579.2.1259 1957 Unknown [id number] 2.16.840.1.048163.3.579.2.1286 1957 Unknown [id number] 2.16.840.1.816729.3.579.2.1286 Unknown MMO [id number] Unknown [facility] [id number] Unknown [id number] 2.16.840.1.315429.3.579.2.531 Unknown [id number] 2.16.840.1.354116.3.579.2.531 Unknown [id number] 2.16.840.1.963731.3.579.2.531 Social History Date Type Detail Facility Unknown if ever smoked [facility] Start: 04-11-2022 End: 04-12-2023 Sex Assigned At [facility] Start: 10-19-2021 End: 11-29-2021 Tobacco smoking status NHIS Never smoked tobacco (finding) [facility] Start: 1955 Sex Assigned At Male [facility] Start: 01-18-2022 Tobacco use and exposure Smokeless tobacco non-user [facility] Start: 04-12-2023 Alcohol intake Current drinker of alcohol (finding) [facility] Start: 04-11-2022 End: 04-12-2023 History of Social function [facility] Do you belong to any clubs or organizations such as yarsani groups, unions, fraternal or athletic groups, or school groups? No [facility] Are you now , , , , never or living with a partner? [facility] How often to you hav e a drink containing alcohol? 2-4 times a month [facility] How many standard dr inks containing alcohol do you have on a typical day? 1 or 2 [facility] How often do you hav e 6 or more drinks on 1 occasion? Never [facility] How hard is it for y ou to pay for the very basics like food, housing, medical care, and heating Somewhat hard [facility] Adolescent depressio n screening assessment 0 [facility] Do you feel stress - tense, restless, nervous, or anxious, or unable to sleep at night because your mind is troubled all the time - these days [OSQ] Not at all [facility] Start: 01-10-2023 Education [employer] Start: 09-10-2019 Alcohol Comment social [employer] Start: 1955 Sex Assigned At Not on file [facility] Medical Equipment Procedure Code Equipment Code Equipment Origin al Text Equipment Identifier Dates Gft Hmn Tiss 250 mg Amniofill - [id number] - [id number] Start: 12-27-2018 Gft Sft Tis Matr istem - [id number] - [id number] Start: 01-27-2019 Tiss Grafix Prim e 3x4cm - [id number] - [id number] Start: 09-15-2019 Evera Mri Xt Vr Defibrillator [id number] Start: 07-13-2015 Sprint Quattro S ecure Mri [id number] Start: 07-13-2015 Tissue Epifix 2x 4 Cm - [id number] - [id number] Start: 12-27-2018 USE DIRECTED FOUR TIMES DAILY [id number] Start: 08-07-2022 Goals Date Patient Goal Desired Activity /State Personal health goal Comment on above: Formatting of this n ote might be different from the original. Evaluation of progress towards goal: Safe dc transition from hospital to home with family support. Resume with [facility]. Personal health goal Comment on above: Formatting of this n ote might be different from the original. Evaluation of progress towards goal: Pt plans to discharge home with [facility]. Functional Status Date Assessment Result Facility 10-27-2021 Functional status Patient is Pro gressing Toward Baseline [facility] Work Phone: 10-21-2021 Functional status Patient is Pro gressing Toward Baseline [facility] Work Phone: 10-18-2021 Functional status Patient at Baseline [facility] Work Phone: Mental Status Date Assessment Result Facility 10-27-2021 Cognitive function Cognitive Sta tus Patient at Baseline [facility] Work Phone: 10-21-2021 Cognitive function Cognitive Sta tus Patient is Progressing Toward Baseline [facility] Work Phone: 10-18-2021 Cognitive function Cognitive Sta tus Patient at Baseline [facility] Work Phone: Clinical Notes 01-05-2021 to 04-12-2023 Terry Lock, BOX PACKER-VEHICLE REFINISHER - 04/12/2023 11:30 AM Sue High, BALLOON MAKER - 04/12/2023 11:30 AM EST Note Date & Type Note Facility 04-12-2023 History of Present illness Narrative Anai Goodman Date of visit: 04/12/2023 Date of : 1955 Age: 67 y.o. Patient Active Problem List Diagnosis Cardiac defibrillator in place- Medtronic Essential (primary) hypertension Apical mural thrombus Ischemic cardiomyopathy Hyperlipemia Type 2 diabetes mellitus with diabetic neuropathic arthropathy, with long-term current use of insulin ([facility]) Chronic systolic congestive heart failure ([facility]) Coronary artery disease involving pilot station coronary artery of pilot station heart without angina pectoris Hearing loss Personal history of colonic polyps Colon polyps Diverticulosis large intestine w/o perforation or abscess w/o bleeding Chronic obstructive pulmonary disease ([facility]) 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 Gastroesophageal reflux disease with esophagitis without hemorrhage Stage 3b chronic kidney disease ([facility]) Subepithelial esophageal mass Sarcoidosis Diabetic retinopathy ([facility]) Obstructive sleep apnea syndrome Diabetic neuropathy ([facility]) Bilateral sensorineural hearing loss Unilateral complete AKA, right ([facility]) Allergies Allergen Reactions Doxycycline Other reaction(s): Chest Pain Levofloxacin Other reaction(s): Chest Pain Chlorpheniramine Dextromethorphan Hbr Itching Btoihwxnu-Bc-Uohjlsfcycsiq Guaifenesin Other reaction(s): Itching of skin Hydrocodone [...] involving left anterior descending (LAD) coronary artery ([facility]) 05/28/2015 Hyperlipidemia Interstitial lung disease ([facility]) Left ventricular failure ([facility]) MRSA (methicillin resistant staph aureus) culture positive Peptic ulceration Presence of automatic (implantable) cardiac defibrillator ST elevation (STEMI) myocardial infarction ([facility]) 2014 x 5 stents Stage 3b chronic kidney disease ([facility]) 04/22/2020 Unilateral complete AKA, right ([facility]) 03/31/2022 No data recorded No data recorded No data recorded Past Surgical History: Procedure Laterality Date ANKLE LIGAMENT RECONSTRUCTION Right 2020 APPLICATION AMNIOFILL Right 12/27/2018 Performed by Arlen Olguin DPM at [facility] APPLICATION WOUND VAC ( NOT done) Right 01/27/2019 Performed by Terry Hector DPM at [facility] CARDIAC DEFIBRILLATOR PLACEMENT 07/13/2015 [employer] COLONOSCOPY N/A 04/07/2020 Performed by Deon Braxton DO at [facility] DEBRIDEMENT FOOT EXCISION RT FOOT ULCER, APPLICATION BIOLOGIC SKIN GRAFT RT FOOT, APPLICATION OF WOUND VAC RT FOOT Right 01/27/2019 Performed by Terry Hector DPM at [facility] DEBRIDEMENT FOOT WITH APPLICATION OF GRAFIX Right 09/15/2019 Performed by Terry Hector DPM at [facility] ESOPHAGOGASTRODUODENOSCOPY N/A 05/19/2020 Performed by Deon Braxton DO at [facility] EXCISION 5TH METATARSAL Right 12/30/2018 Performed by Terry Hector DPM at [facility] FOOT SURGERY 07/2020 [facility] Bilateral LAPAROSCOPIC CHOLECYSTECTOMY N/A 06/21/2020 Performed by Deon Justice MD at [facility] LENGTHENING TENDON RIGHT, PLANTAR FASCIOTOMY Right 09/15/2019 Performed by Terry Hector DPM at [facility] SKIN GRAFT LOWER EXTREMITY (APPLICATION OF BIOLOGIC SKIN GRAFT RT FOOT Right 01/27/2019 Performed by Terry Hector DPM at [facility] Family History Problem Relation Age of [...] min Stress: No Stress Concern Present (04/11/2022) [employer] [place] [employer] - Occupational Stress Questionnaire Feeling of Stress : Not at all Social Connections: Moderately Integrated (04/11/2022) Social Connection and Isolation Panel [NHANES] Frequency of Communication with Friends and Family: Twice a week Frequency of Social Gatherings with Friends and Family: Twice a week Attends Mu-Ism Services: 1 to 4 times per year [...] Verbalized understanding 2. Coronary artery disease involving pilot station coronary artery of pilot station heart without angina pectoris -aspirin, statin, beta-doreen 3. Ischemic cardiomyopathy -carvedilol, losartan, Aldactone 4. Chronic systolic congestive heart failure (CMS-HCC) -compensated 5. Apical mural thrombus -small, fixed on echocardiogram 04/2020 -has been maintained on Eliquis therapy 5 mg b.i.d. 6. Essential (primary) hypertension -well controlled 7. Cardiac defibrillator in place- [employer] -3.4 years of battery life as of [...] Referring Physician: Deon Braxton DO [address] [place] [address] FANNY Owens 04/12/23 1145 Office note faxed to Dr Lee for clearance [facility] this [facility] Evaluation note Encounter Date Diagnosis Assessment Notes Dec, Charcot foot due to diabetes mellitus (ICD-10 - E11.610) Dec, Status post transmetatarsal amputation of left foot (ICD-10 - Z89.432) as above, RX written. Dec, Hx of right BKA (ICD-10 - Z89.511) [facility] Other 07-06-2023 Evaluation note* Encounter Date Diagnosis [...] months. Sep, Peripheral polyneuropathy (ICD-10 - G62.9) [facility] Other 05-03-2023 Evaluation note* Encounter Date Diagnosis [...] elsewhere classified, subsequent encounter (ICD-10 - T81.31XD) [facility] Other 03-03-2023 Evaluation note* Encounter Date Diagnosis [...] this time. Patient is following up at [facility] for changes to prosthetic. I did recommend use of a cane to help offload some weight which may reduce his pain. Patient voiced understanding and states no further questions at this time. May, Other specified postprocedural states (ICD-10 - Z98.890) May, Postoperative wound dehiscence, initial encounter (ICD-10 - T81.31XA) [facility] Other 01-27-2023 Evaluation note* Encounter Date Diagnosis [...] wound dehiscence, initial encounter (ICD-10 - T81.31XA) [facility] Other 01-11-2023 Evaluation note* Encounter Date Diagnosis [...] wound dehiscence, initial encounter (ICD-10 - T81.31XA) [facility] Other 12-14-2022 Evaluation note* Encounter Date Diagnosis [...] wound dehiscence, initial encounter (ICD-10 - T81.31XA) [facility] Other 11-08-2022 Evaluation note* Encounter Date Diagnosis Assessment Notes Treatment Notes Treatment Clinical Notes Jan, Right below-knee amputee (ICD-10 - Z89.511) Proceed with K3 level, transtibial prosthesis, preparatory. Diligent monitoring of residual limb. Stop wearing prosthesis immediately if wound should worsen, develop erythema, increased pain, etc. Wearing schedule. [facility] Other 11-04-2022 Evaluation note* Encounter Date Diagnosis [...] wound dehiscence, initial encounter (ICD-10 - T81.31XA) [facility] Other 10-21-2022 Evaluation note* Encounter Date Diagnosis [...] wound dehiscence, initial encounter (ICD-10 - T81.31XA) [facility] Other 10-07-2022 Evaluation note* Encounter Date Diagnosis [...] wound dehiscence, initial encounter (ICD-10 - T81.31XA) [facility] Other 09-23-2022 Evaluation note* Encounter Date Diagnosis [...] wound dehiscence, initial encounter (ICD-10 - T81.31XA) [facility] Other 09-14-2022 Evaluation note* Encounter Date Diagnosis [...] wound dehiscence, initial encounter (ICD-10 - T81.31XA) [facility] Other 09-09-2022 Evaluation note* Encounter Date Diagnosis [...] infectious disease. Faxed wound center information to [phone] and left a voicemail. Dec, Other specified postprocedural states (ICD-10 - Z98.890) Dec, Postoperative wound dehiscence, initial encounter (ICD-10 - T81.31XA) [facility] Other 08-30-2022 History and physical note Author Reddy Brandt [facility] November 29, 2021 11:49am Note Date/Time November 29, 2021 11 :32am [facility] [address] [place] [address] Orthopedic Surgery H&P Signed Patient: Anai Goodman MR#: [id number] : 1955 Acct:[id number] Age/Sex: 66 / M Adm Date: 2 Loc: IN Room: Type: [facility] Attending Dr: Reddy Brandt DO Copies to: [...] poor healing. I have advised against the imaging scheduler use of narcotic pain medication. I have advised to follow all post-operative instructions in order to obtain the best outcome. Informed consent has been verbally affirmed and signed as indicated. Documented By: Reddy Brandt DO 11/29/21 1129 Signed By: <Electronically signed by Reddy Brandt DO> 11/29/21 1146 [facility] Work Phone: 1(786) 399-113608-29-2022 Evaluation note* Encounter Date Diagnosis Assessment Notes [...] remova l of sutures (ICD-10 - Z48.02) [facility] Other 08-03-2022 Evaluation note* Encounter Date Diagnosis [...] was in understanding and wishes to proceed. [facility] Other 08-01-2022 Evaluation note* Encounter Date Diagnosis [...] move forward with treatment at this time. [facility] Other 07-27-2022 Progress note Author Ghanshyam Kaye [facility] October 25, 2021 11:37pm Note Date/Time October 25, 2021 11:3 7pm [facility] [address] [place] [address] Physiatry(Rehab) Progress Note Signed Patient: Anai Goodman MR#: [id number] : 1955 Acct:[id number] Age/Sex: 66 / M Adm Date: 2 Loc: Room: 8Y5657-0 Type : ADM IN Attending Dr: Ghanshyam Kaye MD Copies to: ~ Date of Service: 10/25/2021 Subjective Subjective Narrative: Mr. Goodman is a 66 year old male who is admitted to [facility] inpatient rehab for strengthening s/p planned right BKA. Patient's past medical history significant for DM type II, CAD, [place], s/p pacemaker/defibrillator insertion, CKD, osteomyelitis of the [...] % (Auto) 69.1 Lymph % (Auto) 9.4 Faulk % (Auto) 14.5 Eos % (Auto) 6.7 Baso % (Auto) 0.3 Neut # (Auto) 4.0 Lymph # (Auto) 0.5 L Faulk # (Auto) 0.8 Eos # (Auto) 0.4 [...] MPV Neut % (Auto) Lymph % (Auto) Faulk % (Auto) Eos % (Auto) Baso % (Auto) Neut # (Auto) Lymph # (Auto) Faulk # (Auto) Eos # (Auto) Baso # [...] Tablet PO 10/21/22 21:59 100 mg QHS [facility] Administration Atorvastatin Calcium 80 mg 10/22/21 09:00 10/25/21 08:07 Atorvastatin 80 Mg Tablet PO 10/22/22 08:59 80 mg QAM CB Administration Bisacodyl 10 mg 10/21/21 17:51 Bisacodyl 10 Mg Supp.Rect SD 10/21/22 17:50 DAILY PRN Constipation Bumetanide 1 [...] 17:51 Docusate Enema 283 Mg/5 Ml Enema SD 10/21/22 17:50 DAILY PRN Constipation Insulin Aspart 0 units 10/21/21 17:00 10/25/21 20:27 Insulin Aspart 300 Units/3 Ml Insuln.Pen SUBCUT 10/21/22 16:59 7 units TID.WM.[facility] Administration Protocol Insulin Aspart 0 units 10/21/21 17:00 10/25/21 20:30 Insulin Aspart 300 Units/3 Ml Insuln.Pen SUBCUT 10/21/22 16:59 Not Given TID.WITH.MEALS.[facility] Protocol Insulin Detemir 40 units 10/21/21 22:00 10/25/21 20:28 Insulin Detemir 300 Units/3 Ml Insuln.Pen SUBCUT 10/21/22 21:59 40 [facility] Administration Lactulose 30 gm 10/21/21 17:51 Lactulose [...] equipment to enhance the patient's a functional yarsani Ensure adequate nutrition and hydration Sleep: Denies any issues Pain: Denies any issues Discharge planning: Home with in 7 to 10 days. I spent greater than 25 minutes for services, including vbxi-my-leln encounter with the patient, discussion of the case, plan of care, and exam; and acsaeag-nl-nbfg activities, such as reviewing pertinent x ray consultant documentation, recent therapy notes, laboratory and radiology studies, and discussionof case with care team including nursing, case sealer, and therapists. More than 50 % of time was spent on patient/family counseling or coordination ofcare. Documented By: Ghanshyam Kaye MD 10/25/212333 Signed By: <Electronically signed by Ghanshyam Kaye MD> 10/25/212336 [facility] Work Phone: 1(172) 469-300807-26-2022 Progress note Author Ghanshyam Kaye [facility] October 25, 2021 10:20am Note Date/Time October 23, 2021 11:5 7am [facility] [address] [place] [address] Physiatry(Rehab) Progress Note Signed Patient: Anai Goodman MR#: [id number] : 1955 Acct:[id number] Age/Sex: 66 / M Adm Date: 2 Loc: Room: 2N5581-3 Type : ADM IN Attending Dr: Ghanshyam Kaye MD Copies to: ~ <Chante Narayan APRN - Last Filed: 10/23/21 11:57> Date of Service: 10/23/2021 Subjective <Chante Narayan APRN - Last Filed: 10/23/21 11:57> Subjective Narrative: Mr. Goodman is a 66 year old male who is admitted to [facility] inpatient rehab for strengthening s/p planned right BKA. Patient's past medical history significant for DM type II, CAD, [place], s/p pacemaker/defibrillator insertion, CKD, osteomyelitis of the [...] about discharge, wants to talk to case folder about insurance coverage, but thinks he would [...] side transfer. Review of Systems <Chante Narayan, KRUNAL - Last Filed: 10/23/21 11:57> Constitutional Constitutional: [...] mg 10/21/21 17:51 Bisacodyl 10 Mg Supp.Rect SD 10/21/22 17:50 DAILY PRN Constipation Bumetanide 2 [...] 17:51 Docusate Enema 283 Mg/5 Ml Enema SD 10/21/22 17:50 DAILY PRN Constipation Insulin Aspart 0 units 10/21/21 17:00 10/23/21 09:05 Insulin Aspart 300 Units/3 Ml Insuln.Pen SUBCUT 10/21/22 16:59 1 units TID.WM.[facility] Administration Protocol Insulin Aspart 0 units 10/21/21 17:00 10/23/21 09:06 Insulin Aspart 300 Units/3 Ml Insuln.Pen SUBCUT 10/21/22 16:59 4 units TID.WITH.MEALS.[facility] Administration Protocol Insulin Detemir 40 units 10/21/21 22:00 10/22/21 20:27 Insulin Detemir 300 Units/3 Ml Insuln.Pen SUBCUT 10/21/22 21:59 40 units QHS [facility] Administration Lactulose 30 gm 10/21/21 17:51 Lactulose 20 Gm/30 Ml Udc PO 10/21/22 17:50 DAILY PRN Constipation Losartan Potassium 25 mg 10/22/21 09:00 10/23/21 09:07 Losartan 25 Mg Tablet PO 10/22/22 08:59 25 mg QAM [facility] Administration Magnesium Oxide 400 mg 10/22/21 09:00 10/23/21 09:07 Magnesium Oxide 400 Mg Tablet PO 10/22/22 08:59 400 mg QAM [facility] Administration Multivitamins 1 tab 10/22/21 09:00 10/23/21 09:07 Multivitamin 1 Tab Tablet PO 10/22/22 08:59 1 tab QAM [facility] Administration Nitroglycerin 0.4 mg 10/21/21 15:50 Nitroglycerin 0.4 Mg Tab.Subl SUBLINGUAL 07/22/23 15:49 DAILY PRN Chest Pain Rivaroxaban 10 [...] mcg BID CB Administration Assessment/Plan <Chante Narayan, KRUNAL - Last Filed: 10/23/21 11:57> Assessment/Plan (1) [...] equipment to enhance the patient's a functional yarsani Ensure adequate nutrition and hydration Sleep: Denies any issues Pain: Denies any issues Discharge planning: Home with in 7 to 10 days. I spent greater than 15 minutes for services, including pgmn-by-yoqm encounter with the patient, discussion of the case, plan of care, and exam; and bdtbsms-vr-xmzf activities, such as reviewing pertinent x ray consultant documentation, recent therapy notes, laboratory and radiology studies, and discussion of case with care team including physician, nursing, case sealer, and therapists. More than 50 % of [...] the chart, including currentorders, allied health and x ray consultant notes, labs/imaging and plan of care as above. Documented By: Chante Narayan APRN 10/23/21 1 150 Signed By: <Electronically signed by KRUNAL Narayan> 10/23/21 1157 <Electronically signed by Ghanshyam Kaye MD> 10/25/21 1020 [facility] Work Phone: 1(994) 647-127907-26-2022 History and physical note Author Ghanshyam Kaye [facility] October 25, 2021 9:36am Note Date/Time October 22, 2021 9:59 am [facility] [address] [place] [address] Physiatry (Rehab) H&P Signed Patient: Anai Goodman MR#: [id number] : 1955 Acct:[id number] Age/Sex: 66 / M Adm Date: 2 Loc: Room: [address] [place] [address] Type : ADM IN Attending Dr: Ghanshyam Kaye MD Copies to: KRUNAL Mendez DO Joseph Riley, MD~ <Chante Narayan APRN - Last Filed: 10/22/21 10:24> Date of Service: 10/22/2021 HPI <Chante Narayan APRN - Last Filed: 10/22/21 10:24> The patient was seen and examined on: 10/21/21 History of Present Illness: Mr. Goodman is a 66 year old male who is admitted to [facility] inpatient rehab for strengthening s/p planned right BKA. Patient's past medical history significant for DM type II, CAD, [place], s/p pacemaker/defibrillator insertion, CKD, osteomyelitis of the [...] History (Updated 10/22/21 @ 16:57 by SATURNINO Villatoro-SAUMYA) Amputated toe of left foot x5 Arthritis [...] complaints, except as documented Meds <Chante Narayan, BOX PACKER - Last Filed: 10/22/21 10:24> Medications and Allergies Allergies chlorpheniramine [From ssionex] Allergy (Verified 10/18/21 11:48) Hives dextromethorphan Allergy [...] 100 Mg Tablet) 100 mg PO QHS [facility] Stop: 10/21/22 21:59 Last Admin: 10/21/21 22:12 Dose: 100 mg Atorvastatin Calcium (Atorvastatin 80 Mg Tablet) 80 mg PO QAM [facility] Stop: 10/22/22 08:59 Last Admin: 10/22/21 08:05 Dose: 80 mg Bisacodyl (Bisacodyl 10 Mg Supp.Rect) 10 mg SD DAILY PRN PRN Reason: Constipation Stop: 10/21/22 17:50 Bumetanide (Bumetanide 2 Mg Tablet) 2 mg PO BID [facility] Stop: 10/21/22 20:59 Last Admin: 10/22/21 08:02 Dose: 2 mg Carvedilol (Carvedilol 6.25 Mg Tablet) 6.25 mg PO BID [facility] Stop: 10/21/22 20:59 Last Admin: 10/22/21 08:02 Dose: 6.25 mg Docusate Sodium (Docusate 100 Mg Capsule) 100 mg PO BID PRN PRN Reason: Constipation Stop: 10/21/22 17:50 Docusate Sodium (Docusate Enema 283 Mg/5 Ml Enema) 283 mg SD DAILY PRN PRN Reason: Constipation Stop: 10/21/22 17:50 Insulin Aspart (Insulin Aspart 300 Units/3 Ml Insuln.Pen) 0 units SUBCUT TID.WM.[facility]; Protocol Stop: 10/21/22 16:59 Last Admin: 10/22/21 08:01 Dose: 1 units Insulin Aspart (Insulin Aspart 300 Units/3 Ml Insuln.Pen) 0 units SUBCUT TID.WITH.MEALS.[facility]; Protocol Stop: 10/21/22 16:59 Last Admin: 10/22/21 08:01 Dose: 4 units Insulin Detemir (Insulin Detemir 300 Units/3 Ml Insuln.Pen) 40 units SUBCUT [facility] Stop: 10/21/22 21:59 Last Admin: 10/21/21 22:02 Dose: 40 units Lactulose (Lactulose 20 Gm/30 Ml Udc) 30 gm PO DAILY PRN PRN Reason: Constipation Stop: 10/21/22 17:50 Losartan Potassium (Losartan 25 Mg Tablet) 25 mg PO QAM [facility] Stop: 10/22/22 08:59 Last Admin: 10/22/21 08:05 Dose: 25 mg Magnesium Oxide (Magnesium Oxide 400 Mg Tablet) 400 mg PO QAM [facility] Stop: 10/22/22 08:59 Last Admin: 10/22/21 08:05 Dose: 400 mg Multivitamins (Multivitamin 1 Tab Tablet) 1 tab PO QAM [facility] Stop: 10/22/22 08:59 Last Admin: 10/22/21 08:05 Dose: 1 tab Nitroglycerin (Nitroglycerin 0.4 Mg Tab.Subl) 0.4 mg SUBLINGUAL DAILY PRN PRN Reason: Chest Pain Stop: 10/21/22 15:49 Rivaroxaban (Rivaroxaban 10 Mg Tablet) 10 mg PO DAILY [facility] Stop: 10/22/22 08:59 Last Admin: 10/22/21 08:06 Dose: 10 mg Fluticasone/Salmeterol (Fluticasone/Salmeterol 232-14 Mcg 60 Puff Inhaler) 1 puff INHALATION BID [facility] Stop: 10/21/22 20:59 Last Admin: 10/22/21 05:10 Dose: 1 puff Sennosides (Sennosides 8.6 Mg Tablet) 2 tab PO DAILY@12 PRN PRN Reason: If no BM in 2 days Stop: 10/22/22 11:59 Sodium Chloride (Sodium Chloride 0.9 % 10 Ml Syringe) 0 ml IV-PUSH PRN PRN PRN Reason: Flush Stop: 10/21/22 17:50 Spironolactone (Spironolactone 25 Mg Tablet) 25 mg PO [facility] Stop: 10/22/22 08:59 Last Admin: 10/22/21 08:05 Dose: 25 mg Vitamin D (Cholecalciferol 125 Mcg (5,000 Units) Tablet) 250 mcg PO BID [facility] Stop: 10/21/22 20:59 Last Admin: [...] good Judgment: judgment good Results <Chante Narayan BOX PACKER - Last Filed: 10/22/21 10:24> Labs Labs: Laboratory Results - last 24 hr 10/21/21 10/22/21 10/22/21 20:20 05:59 06:19 Corrected WBC 6.6 Uncorrected WBC Count 6.6 RBC 3.99 Hgb 11.8 L Hct 34.6 L MCV 86.7 MCH 29.5 MCHC 34.0 RDW 17.8 H Plt Count 148 L MPV 8.8 Neut % (Auto) 70.1 Lymph % (Auto) 10.0 Faulk % (Auto) 14.8 Eos % (Auto) 4.5 Baso % (Auto) 0.6 Neut # (Auto) 4.6 Lymph # (Auto) 0.7 L Faulk # (Auto) 1.0 H Eos # (Auto) [...] MPV Neut % (Auto) Lymph % (Auto) Faulk % (Auto) Eos % (Auto) Baso % (Auto) Neut # (Auto) Lymph # (Auto) Faulk # (Auto) Eos # (Auto) Baso # [...] 14 days Expected Discharge Destination: Home Rehabilitation [facility]: 05.4 Primary Diagnosis: Right BKA Patient?s/Family?s anticipated [...] 24 hour daily monitoring and intervention from Programs Manager as well as other consulting physicians including internal medicine as well as 24 hour daily spring coiling machine setter nursing - for medical safe / optimal [...] equipment to enhance the patient's a functional yarsani Ensure adequate nutrition and hydration Sleep: Denies any issues Pain: Denies any issues Discharge planning: Home with in 7 to 10 days. I spent greater than 30 minutes for services, including zimq-am-dzsx encounter with the patient, discussion of the case, plan of care, and exam; and qsglahf-ur-rnaj activities, such as reviewing pertinent x ray consultant documentation, recent therapy notes, laboratory and radiology studies, and discussion of case with care team including physician, nursing, case sealer, and therapists. More than 50 % of [...] Allied health note review, nursing note review, x ray consultant note review, discussion with nursing and [...] chart, including current orders, allied health and x ray consultant notes, labs/imaging and performed rosado elements of exam and I formulated the plan of care and facilitated the medical decision making and confirmed the nurse practitioner note, as above Documented By: Chante Narayan APRN 10/22/21 0 949 Signed By: <Electronically signed by KRUNAL Narayan> 10/22/21 1024 <Electronically signed by Ghanshyam Kaye MD> 10/25/21 0936 [facility] Work Phone: 1(555) 182-182407-24-2022 Progress note Author Bronwyn Alegre [facility] October 23, 2021 3:11pm Note Date/Time October 23, 2021 3:11 pm [facility] [address] [place] [address] Hospitalist Progress Note Signed Patient: Anai Goodman MR#: [id number] : 1955 Acct:[id number] Age/Sex: 66 / M Adm Date: 2 Loc: Room: [address] [place] [address] Type : ADM IN Attending Dr: Ghanshyam [...] Tablet PO 10/21/22 21:59 100 mg QHS [facility] Administration Atorvastatin Calcium 80 mg 10/22/21 09:00 10/23/21 09:07 Atorvastatin 80 Mg Tablet PO 10/22/22 08:59 80 mg QAM [facility] Administration Bisacodyl 10 mg 10/21/21 17:51 Bisacodyl 10 Mg Supp.Rect SD 10/21/22 17:50 DAILY PRN Constipation Bumetanide 1 mg 10/23/21 21:00 Bumetanide 1 Mg Tablet PO 10/23/22 20:59 BID CB Carvedilol 6.25 mg 10/21/21 21:00 10/23/21 09:07 Carvedilol 6.25 Mg Tablet PO 10/21/22 20:59 6.25 mg BID [facility] Administration Docusate Sodium 100 mg 10/21/21 17:51 Docusate 100 Mg Capsule PO 10/21/22 17:50 BID PRN Constipation Docusate Sodium 283 mg 10/21/21 17:51 Docusate Enema 283 Mg/5 Ml Enema SD 10/21/22 17:50 DAILY PRN Constipation Insulin Aspart 0 units 10/21/21 17:00 10/23/21 13:13 Insulin Aspart 300 Units/3 Ml Insuln.Pen SUBCUT 10/21/22 16:59 2 units TID.WM.[facility] Administration Protocol Insulin Aspart 0 units 10/21/21 17:00 10/23/21 13:14 Insulin Aspart 300 Units/3 Ml Insuln.Pen SUBCUT 10/21/22 16:59 5 units TID.WITH.MEALS.[facility] Administration Protocol Insulin Detemir 40 units 10/21/21 [...] Losartan, Spironolactone 2.? GRACY on CPAP 3. C5EF-K0f 7.3, continue detemir, SSI 4. CKD 3?trend [...] PCP and out patient providers to obtain [facility] record entirely to follow up on illnesses, symptoms, abnormal findings that I have and have not addressed duringthis encounter and hospitalization in out patient setting. Documented By: Bronwyn Alegre MD 10/23/21 1509 Signed By: <Electronically signed by Bronwyn Alegre MD> 10/23/21 1519 [facility] Work Phone: [phone] 879-210107-24-2022 Consult note Author Bronwyn Alegre [facility] October 23, 2021 7:04am Note Date/Time October 22, 2021 4:18 pm [facility] [address] [place] [address] Hospitalist Consult Note Signed Patient: Anai Goodman MR#: [id number] : 1955 Acct:[id number] Age/Sex: 66 / M Adm Date: 2 Loc: Room: 0V4151-0 Type : ADM IN Attending Dr: Ghanshyam [...] negative unless noted below or in HPI [facility] Attestation Statement: The following information was validated [...] mg 10/21/21 17:51 Bisacodyl 10 Mg Supp.Rect SD 10/21/22 17:50 DAILY PRN Constipation Bumetanide 2 mg 10/21/21 21:00 10/22/21 08:02 Bumetanide 2 Mg Tablet PO 10/21/22 20:59 2 mg BID CB Administration Carvedilol 6.25 mg 10/21/21 21:00 10/22/21 08:02 Carvedilol 6.25 Mg Tablet PO 10/21/22 20:59 6.25 mg BID [facility] Administration Docusate Sodium 100 mg 10/21/21 17:51 Docusate 100 Mg Capsule PO 10/21/22 17:50 BID PRN Constipation Docusate Sodium 283 mg 10/21/21 17:51 Docusate Enema 283 Mg/5 Ml Enema SD 10/21/22 17:50 DAILY PRN Constipation Insulin Aspart 0 units 10/21/21 17:00 10/22/21 12:45 Insulin Aspart 300 Units/3 Ml Insuln.Pen SUBCUT 10/21/22 16:59 2 units TID.WM.[facility] Administration Protocol Insulin Aspart 0 units 10/21/21 17:00 10/22/21 12:46 Insulin Aspart 300 Units/3 Ml Insuln.Pen SUBCUT 10/21/22 16:59 2 units TID.WITH.MEALS.[facility] Administration Protocol Insulin Detemir 40 units 10/21/21 22:00 10/21/21 22:02 Insulin Detemir 300 Units/3 Ml Insuln.Pen SUBCUT 10/21/22 21:59 40 units QHS [facility] Administration Lactulose 30 gm 10/21/21 17:51 Lactulose 20 Gm/30 Ml Udc PO 10/21/22 17:50 DAILY PRN Constipation Losartan Potassium 25 mg 10/22/21 09:00 10/22/21 08:05 Losartan 25 Mg Tablet PO 10/22/22 08:59 25 mg QAM [facility] Administration Magnesium Oxide 400 mg 10/22/21 09:00 10/22/21 08:05 Magnesium Oxide 400 Mg Tablet PO 10/22/22 08:59 400 mg QAM [facility] Administration Multivitamins 1 tab 10/22/21 09:00 10/22/21 08:05 Multivitamin 1 Tab Tablet PO 10/22/22 08:59 1 tab QAM [facility] Administration Nitroglycerin 0.4 mg 10/21/21 [...] % (Auto) 70.1, Lymph % (Auto) 10.0, Faulk % (Auto) 14.8, Eos % (Auto) 4.5, Baso % (Auto) 0.6, Neut # (Auto) 4.6, Lymph # (Auto) 0.7 L, Faulk # (Auto) 1.0 H, Eos # (Auto) [...] Losartan, Spironolactone 2.? GRACY on CPAP 3. Q7MD-L5k 7.3, continue detemir, SSI 4. CKD 3?trend labs Documented By: ABDIRASHID Olmedo 2 1618 Signed By: <Electronically signed by ABDIRASHID Matias> 10/22/21 1658 <Electronically signed by Bronwyn Alegre MD> 10/23/21 0704 [facility] Work Phone: 1(691) 271-547507-22-2022 Progress note Author Rodriguez Loera [facility] October 21, 2021 8:37am Note Date/Time October 20, 2021 11:0 8am [facility] [address] [place] [address] Hospitalist Progress Note Signed Patient: Anai Goodman MR#: [id number] : 1955 Acct:[id number] Age/Sex: 66 / M Adm Date: 2 Loc: 4 Room: [address] [place] [address] Type : ADM IN Attending Dr: Reddy [...] Lactated Ringers IV 10/18/22 07:29 Not Given .[id number] CB Insulin Aspart 0 units 10/18/21 08:00 10/20/21 09:47 Insulin Aspart 300 Units/3 Ml Insuln.Pen SUBCUT 10/18/22 07:59 2 units TID.WM.[facility] Administration Protocol Insulin Aspart 0 units 10/18/21 17:00 10/20/21 09:48 Insulin Aspart 300 Units/3 Ml Insuln.Pen SUBCUT 10/18/22 16:59 3 units TID.WM.[facility] Administration Insulin Detemir 40 units 10/18/21 22:00 [...] signed by Rodriguez Loera MD> 10/21/21 0837 [facility] Work Phone: 1(311) 515-921307-21-2022 Progress note Author Rodriguez Loera [facility] October 20, 2021 8:45am Note Date/Time October 19, 2021 11:2 8am [facility] [address] [place] [address] Hospitalist Progress Note Signed Patient: Anai Goodman MR#: [id number] : 1955 Acct:[id number] Age/Sex: 66 / M Adm Date: 2 Loc: 4N Room: [address] [place] [address] Type : ADM IN Attending Dr: Reddy [...] Lactated Ringers IV 10/18/22 07:29 75 mls/hr .[id number] CB Administration Insulin Aspart 0 units 10/18/21 [...] signed by Rodriguez Loera MD> 10/20/21 0845 [facility] Work Phone: 1(771) 429-713807-20-2022 Progress note Author Reddy Brandt [facility] October 19, 2021 12:11pm Note Date/Time October 19, 2021 12:1 1pm [facility] [address] [place] [address] Orthopedic Progress Note Signed Patient: Anai Goodman MR#: [id number] : 1955 Acct:[id number] Age/Sex: 66 / M Adm Date: 2 Loc: 4N Room: 3T2549-8 Type : ADM IN Attending Dr: Reddy [...] signed by Reddy Brandt DO> 10/19/21 1211 [facility] Work Phone: 1(622) 145-836207-20-2022 Consult note Author Stewart Lucio [facility] October 19, 2021 1:42am Note Date/Time October 19, 2021 1:11 am [facility] [address] [place] [address] Hospitalist Consult Note Signed Patient: Anai Goodman MR#: [id number] : 1955 Acct:[id number] Age/Sex: 66 / M Adm Date: 2 Loc: Room: [address] [place] [address] Type : ADM IN Attending Dr: Reddy Brandt DO Copies to: MD Deon Caban,DO Reddy Brandt, DO Bre Patel, KRUNAL~ HPI DATE OF CONSULTATION: 10/19/21 REQUESTING PROVIDER: [...] negative unless noted in the HPI below [facility] Attestation Statement: The following information was validated [...] Lactated Ringers IV 10/18/22 07:29 75 mls/hr .[id number] CB Administration Cefazolin Sodium 1 gm in [...] Ml Insuln.Pen SUBCUT 10/18/22 07:59 6 units TID.WM.[facility] Administration Protocol Insulin Aspart 0 units 10/18/21 17:00 10/18/21 23:37 Insulin Aspart 300 Units/3 Ml Insuln.Pen SUBCUT 10/18/22 16:59 Not Given TID.WM.[facility] Insulin Detemir 40 units 10/18/21 22:00 10/18/21 21:39 Insulin Detemir 300 Units/3 Ml Insuln.Pen SUBCUT 10/18/22 21:59 40 units QHS CB Administration Losartan Potassium 25 mg 10/19/21 09:00 Losartan 25 Mg Tablet PO 10/19/22 08:59 QAM [facility] Magnesium Oxide 400 mg 10/19/21 09:00 Magnesium Oxide 400 Mg Tablet PO 10/19/22 08:59 QAM [facility] Multivitamins 1 tab 10/19/21 09:00 Multivitamin 1 Tab Tablet PO 10/19/22 08:59 QAM [facility] Nitroglycerin 0.4 mg 10/18/21 15:44 [...] signed by Stewart Lucio MD> 10/19/21 0142 [facility] Work Phone: [phone]) 607-271507-13-2022 Evaluation note* Encounter Date Diagnosis Assessment Notes Treatment Notes Treatment Clinical Notes Sep, Acute right ankle pain (ICD-10 - M25.571) Aani presents with right ankle osteomyelitis for discussion [...] poor healing. I have advised against the imaging scheduler use of narcotic pain medication. I have [...] osteomyelitis of right tibia (ICD-10 - M86.661) [facility] Other 07-07-2022 Evaluation note* Encounter Date Diagnosis Assessment Notes Treatment Notes Treatment Clinical Notes Sep, Other chronic osteomyelitis of right tibia (ICD-10 - M86.661) [facility] Other 07-07-2022 Evaluation note* Encounter Date Diagnosis [...] place his pacemaker into MRI mode. Anyway electric meter technician was very helpful and she is [...] worse they are to call me WALT. [facility] Other 06-09-2022 Evaluation note* Encounter Date Diagnosis [...] to a suppressive dose at that time [facility] Other 11-23-2021 NoteChief Complaint Basal cell carcinoma [...] 03/03/2021 PATIENT : 1955 LOCATION OF PROCEDURE: [facility] SURGEON: Chirag Gutierrez DO INFORMED CONSENT: Obtained by and on file at [facility] CC: [Basal cell carcinoma left [...] get a repeat audiogr (more content not included)...[facility]10-11-2021 NoteChief Complaint Open wound Left ear History of Present Illness PLANNED PROCEDURE: Excision and preparation of surgical site, complex plastics myocutaneous advancement flap tear of left ear defect DATE OF PROCEDURE: 01/11/2021 PATIENT : 1955 LOCATION OF PROCEDURE: [facility], SURGEON: Chirag Gutierrez DO INFORMED CONSENT: Obtained by and on file at [facility] CC: Basal cell carcinoma left [...] reconstruction amputation of le (more content not included)...[facility] 01-05-2021 NoteChief Complaint MOHs procedure to left [...] Dr. Freed. Previous pathology by physician in [place] about 1 year ago. PMHx of multiple [...] This patient presented to the [facility] with a chief concern of skin cancer. [...] and corroborated preoperatively wit (more content not included)...[facility]10-06-2021 NoteClinical Information Procedure: Excision with frozen section left ear Pre-operative diagnosis: Basal cell carcinoma Outside pathology report from [facility] was received with accession number [id number]. SP Specimen A Skin of left ear, [...] skin without gross lesi (more content not included)...[facility] on above:Performed By: #### SPR ####[facility] (DEFAULT)[address] [place], [place] [address]Vqtiodsyg summary Author Ghanshyam Kaye [facility] October 28, 2021 10:30am Note Date/Time October 27, 2021 1:34 pm [facility] [address] [place] [address] Discharge Summary Signed Patient: Anai Goodman MR#: [id number] : 1955 Acct:[id number] Age/Sex: 66 / M Adm Date: 2 Loc: Room: [address] [place] [address]: Ghanshyam Kaye MD Copies to: [...] year old male who was admitted [facility] s/p planned right BKA. His past medical history significant for DM type II, CAD, [place], s/p pacemaker/defibrillator insertion, CKD, osteomyelitis of the [...] Patient's was on Xarelto while inpatient. Per [facility] pharmacy , insurance co-pay would be over [...] year old male who was admitted to [facility] inpatient [facility]hab[facility] s/p planned right BKA. His past medical history significant for DM type II, CAD, [place], s/p pacemaker/defibrillator insertion, CKD, osteomyelitis of the [...] Patient's was on Xarelto while inpatient. Per [facility] pharmacy , insurance co-pay would be over$120 [...] home prior. Your Home Health agency is [employer] ( ). They will usually contact you [...] them prior to your appointment. Instructions: Amputation, Sqqjz-nhx-Vlia (DC) Stand Alone Forms: Insulin Corrective Scale [...] signed by Ghanshyam Kaye MD> 10/28/21 1030 [facility] Work Phone: evaluation noteNo InformationNort [place] [employer] Other Evaluation note* Diagnosis Onset Date Resolution Status Below knee amputation acute Type 2 diabetes mellitus acu te [facility] Work Phone: evaluation note* Diagnosis Onset [...] wound of skin acute Wound dehiscence acute [facility] Work Phone: evaluation note* Diagnosis Onset Date Resolution Status Below knee amputation acute Dehiscence of wound of skin acute Wound dehiscence acute [facility] Work Phone: Evaluation noteNo assessment information available [facility] Work Phone: evalupckxp note* Diagnosis Preop cardiovascular exam- Primary Pre-operative cardiovascular examination Coronary artery disease involving pilot station coronary artery of pilot station heart without angina pectoris Ischemic cardiomyopathy Other [...] ent Hospitalization History MRSA 2011 Hospitalization History [facility] Other History general Narrative - Reported* Type Description Date Medical History DM1 Medical History HTN Medical History HYPERLIPEDEMIA Surgical History LEFT FOOT SURGERY WITH REMOVAL OF ALL FIVE TOES Surgical History heart cath with 5 stents placem ent Surgical History right transtibial be low-knee amputation, right fibular osteotomy 10/17/21 Hospitalization History MRSA 2011 Hospitalization History [facility] Other History general Narrative - Reported* Type Description Date [...] Heart Hospitalization History see above surg. hx. [facility] Other InstructionsNot on filedocumented in this encounter [employer] SystemInstructionsNot on filedocumented in this encounter [employer] Summary Purpose Family History No Family History [...] post op - Sent by Dr Chelsey Avitiaomylidarrell Right Tibia rt leg blleding recent surgery [...] yelitis of right tibia (M86.661) Referral Organization [facility] Referring Provider First [...] and content) DATE CREATED AUTHOR 05/12/2020 [facility] DATE CREATED AUTHOR AUTHOR'S ORGANIZ ATION 05/26/2021 [facility] DATE CREATED AUTHOR AUTHOR'S ORGANIZ ATION 08/23/2021 [facility] DATE CREATED AUTHOR AUTHOR'S ORGANIZ ATION 11/02/2021 [facility] DATE CREATED AUTHOR AUTHOR'S ORGANIZ ATION 03/23/2023 [facility] DATE CREATED AUTHOR AUTHOR'S ORGANIZ ATION 04/08/2023 [facility] DATE CREATED AUTHOR AUTHOR'S ORGANIZ ATION 04/15/2023 [facility] DATE CREATED AUTHOR AUTHOR'S ORGANIZ ATION 04/24/2023 [facility] REASON FOR VISIT (unrecogniz ed section [...] DO Other Provider Active Bre Obika , BOX PACKER Other Provider Active Bin Carrera , DO Other Provider Active Patti Taylor MD Other Provider Active Kassandra Munoz , RN Other Provider Active Team Status: Inactive Member Role Status Dates Deon Braxton , DO Primary Care Provider Active Reddy Brandt , DO Referring Provider Active Darien Bailey , AIR CARRIER MAINTENANCE INSPECTOR-C Attending Provider Activ e Team Status: Active Member Role Status Dates Deon Braxton , DO Primary Care Provider Active Team Status: Inactive Member Role Status Dates Deon Ramosanival , DO Primary Care Provider Active Christiano [...] MD Other Provider Active Mai Britton , AIR CARRIER MAINTENANCE INSPECTOR-C Other Provider Active Christiano Evans MD Other Provider Active Isidro Antunez MD Other Provider Active Rosalind Coburn MD Other Provider Active Bill Osei MD Other Provider Active Lizbeth Mcbride , DO Other Provider Active Fabio Sanchez MD Other Provider Active Kwesi Muhammad , DO Other Provider Active Bre Patel , BOX PACKER Other Provider Active Bin Carrera , DO [...] DO Admit Provider, Attending Provide r Active Ip Architect Relationship Specialty Start Date End Date Deon Braxton, [address] [place] [address] PCP - General Internal Medicine 01/22/17 Ip Architect Relationship Specialty Start Date End Date Deon Braxton DO [address] [place] [address] PCP - General Internal Medicine 01/22/17 Team [...] BE BASED ON THE PRIMARY CLINICAL RECORDS. [employer] provides no warranty or guarantee of the accuracy or completeness of information in this document.
== END 2023-05-08 10:57 | disposition home or self-care (01) ==
LOC: WC 10:57
PROVIDERS: PCP Internal Medicine; Visit Provider Podiatrist Foot & Ankle Surgery
DX: L89.523 Pressure ulcer of left ankle, stage 3 (principal)
CPT/HCPCS: G0463

== ENCOUNTER 2023-05-10 09:54 | Outpatient (OUT) | payer MEDICARE, SELFPAY | END 2023-05-10 09:55 | disposition home or self-care (01) | LOC: WC 09:54 | PROVIDERS: PCP Internal Medicine; Visit Provider Podiatrist Foot & Ankle Surgery | DX: L89.523 Pressure ulcer of left ankle, stage 3 (principal) | CPT/HCPCS: A6213; G0463 ==

== ENCOUNTER 2023-05-14 15:05 | Outpatient (OUT) | payer MEDICARE, SELFPAY | END 2023-05-14 15:06 | disposition home or self-care (01) | LOC: WC 15:06 | PROVIDERS: PCP Internal Medicine; Visit Provider Physician Assistant | DX: L89.523 Pressure ulcer of left ankle, stage 3 (principal) | CPT/HCPCS: G0463 ==

== ENCOUNTER 2023-05-17 14:06 | Outpatient (OUT) | payer MEDICARE, SELFPAY ==
--- OUTSIDE RECORDS SUMMARY | 2023-05-17 14:18 | XMS_ITS | CCD ---
Author Name Unknown Address [address] [place] [address] Organization [facility] Care Team Providers Care Senior [employer] Name Role Phone IRAIS DEON SRINIVAS Primary Care Unavailable Chirag Gutierrez DO Attending Un available RICHARDSDEON Consulting Unavailable YUHAS, DEON SRINIVAS Primary Care Unavailable Chirag Gutierrez DO Attending Un available YUHAS, DEON SRINIVAS Consulting Unavailable YUHAS, DEON SRINIVAS Primary Care Unavailable Cihrag Gutierrez DO Attending Un available YUHAS, DEON SRINIVAS Primary Care Unavailable Chirag Gutierrez DO Attending Un available Pako Aguilar Unavailable Reddy Brandt Unavailable DO Deon Braxton Primary Care Provider [phone] DO Reddy Brandt Attending Provider DO Reddy Brandt Referring Provider [phone] CRISTINA Bailey Attending Provider DO Reddy Brandt Admit Provider NBA Hope Other Provider Unavailable NBA Ruiz Other Provider Unavailable NBA Sorensen Other Provider Unavailable NBA Jasso Other Provider Unavailable NBA Frederick Other Provider Unavailable NBA Parmar Other Provider Unavailable MD Fredi Mendez Other Provider KRUNAL Galvin Other Provider DO Julia Segura Other Provider MD Armando Hanks Other Provider [phone] DO Golden Whatley Other Provider MD Adi Feng Other Provider MD Letty Turpin Other Provider Polly ANP-BC Faviola Other Provider MD Brett Muñoz Other Provider [phone] MD Dennis Larson Other Provider MD Rodriguez Loera Other Provider MD Cuauhtemoc Ramos Other Provider MD Darien Maria Other Provider MD Stewart Lucio Other Provider MD Sonido Murillo Other Provider Reba, CONTENT PUBLISHER-C Mai Vega Other Provider MD Christiano Evans [...] DR DEON BRAXTON Primary Care Unavailable SALINA ELE Consulting Unavailable SALINA LEE Attending Unavailable SALINA LEE Admitting Unavailable ENMANUEL MCKAY Consulting Unavailable ENMANUEL MCKAY Attending Unavailable ENMANUEL MCKAY Admitting Unavailable YUDONNA, DR CHAVARRIA Primary Care Unavailable BALJEET LEONG Consulting Unavailabl e CLOUNAERTYBALJEET Attending Unavailabl e CLOUGHERTYBALJEET Admitting Unavailabl e YUMARVAS, DR CHAVARRIA Primary Care Unavailable YUDONNA, DR CHAVARRIA Primary Care Unavailable LEON, DR CLEMENTS Consulting Unavailable BLANK, DR CLEMENTS Attending Unavailable BLANK, DR CLEMENTS Admitting Unavailable CLOBALJEET SIERRA O Attending Unavailabl e CLOBALJEET SIERRA Admitting Unavailabl e YUMARVAS, DR CHAVARRIA Primary Care Unavailable CLOMARIELA, BALJEET O Admitting Unavailabl e YUHAS, DR CHAVARRIA Primary Care Unavailable BALJEET LEONG O Attending Unavailabl e JESUS, SALINA Walker Attending Unavailable IRAIS, DR CHAVARRIA Primary Care Unavailable JESUS, SALINA Walker Consulting Unavailable JESUS, SALINA Walker Admitting Unavailable JESUS, SALINA Walker Attending Unavailable IRAIS, DR CHAVARRIA Primary Care Unavailable SALINA LEE Admitting Unavailable JESUS, SALINA Walker Attending Unavailable YUMARVAS, DR CHAVARRIA Primary Care Unavailable SALINA LEE Admitting Unavailable BALJEET LEONG Admitting Unavailabl e CLOBALJEET SIERRA O Attending Unavailabl e JAZIEL, DR ANAI [...] Care Unavailable BALJEET LEONG Consulting Unavailabl e CLOUGHERTYBALJEET O Admitting Unavailabl e CLOUGHERTYBALJEET O Consulting Unavailabl e CLOUGHERTYBALJEET O Attending Unavailabl e YUMARVAS, DR CHAVARRIA Primary Care Unavailable CLOBALJEET SIERRA Attending Unavailabl e CLOUGHERTYBALJEET Admitting Unavailabl e YUMARVAS, DR CHAVARRIA Primary Care Unavailable CLOBALJEET SIERRA O Attending Unavailabl e YUHAS, DR CHAVARRIA Primary Care Unavailable CLOBALJEET SIERRA O Admitting Unavailabl e YUHAS, DR CHAVARRIA Primary Care Unavailable JESUS, SALINA Walker Attending Unavailable SALINA LEE Admitting Unavailable YUHAS, DR CHAVARRIA Primary Care Unavailable HIGHLANDER, SALINA Walker Attending Unavailable HIGHLSALINA HURST Admitting Unavailable CLOUNAERTYBALJEET Attending Unavailabl e CLOUNAERTYBALJEET Admitting Unavailabl e YUMARVAS, DR CHAVARRIA Primary Care Unavailable CLOUGHERTY, DELONG O Admitting Unavailabl e CLOUGHERTY, BALJEET O Attending Unavailabl e YUDONNA, DR CHAVARRIA Primary Care Unavailable CLOUNAERTY, BALJEET O Admitting Unavailabl e CLOUGHERTY, BALJEET O Attending Unavailabl e IRAIS, DR CHAVARRIA Primary Care Unavailable YUDONNA, DR CHAVARRIA Primary Care Unavailable HIGHLANDER, SALINA Walker Attending Unavailable HIGHLARIS, SALINA Walker Admitting Unavailable HIGHLANDER, SALINA Walker Attending Unavailable EVANSTON, DR ANAI Edmond Consulting Unavailable HIGHLANDER, SALINA Walker Admitting Unavailable YUHAS, DR CHAVARRIA Primary Care Unavailable HIGHLANDER, SALINA Walker Consulting Unavailable HIGHLANDER, SALINA Walker Attending Unavailable HIGHLARIS, SALINA Walker Admitting Unavailable YUHAS, DR CHAVARRIA Primary Care Unavailable ZIER, DR ARLEN Patel Consulting Unavailable [facility], SALINA Walker Consulting Unavailable HIGHLANDER, SALINA Walker Attending Unavailable HIGHLANDER, SALINA Walker Admitting Unavailable YUHAS, DR CHAVARRIA Primary Care Unavailable HIGHLANDER, SALINA Walker Attending Unavailable HIGHLSALINA HURST Admitting Unavailable YUHAS, DR CHAVARRIA Primary Care Unavailable [facility], SALINA Walker Attending Unavailable YUMARVAS, DR CHAVARRIA Primary Care Unavailable HIGHLANDER, SALINA Walker Admitting Unavailable HIGHLANDER, SALINA Walker Attending Unavailable YUHAS, DR CHAVARRIA Primary Care Unavailable HIGHLANDER, SALINA Walker Consulting Unavailable [facility], SALINA Walker Admitting Unavailable CLOUNAERTY, BALJEET O Attending Unavailabl e CLOUNAERTYBALJEET Admitting Unavailabl e IRAIS, DR CHAVARRIA Primary Care Unavailable CLOUNAERTY, BALJEET O Admitting Unavailabl e CLOUGHERTY, BALJEET O Attending Unavailabl e YUDONNA, DR CHAVARRIA Primary Care Unavailable CLOUNAERTY, BALJEET O Admitting Unavailabl e CLOUGHERTY, BALJEET O Attending Unavailabl e YUDONNA, DR CHAVARRIA Primary Care Unavailable YUDONNA, DR CHAVARRIA Primary Care Unavailable HIGHLANDER, SALINA [...] Primary Care Unavailable DONALD BRADLEY Consulting Unavailable KLYM CHARLES Consulting Unavailable FATARA, H Attending Unavailable JUSTEN, H Admitting Unavailable YUHAS, DR CHAVARRIA Primary Care Unavailable BAUM, DR ALBER Rich Consulting Unavailable WEST, DR ANAI Edmond Consulting Unavailable AGUSTÍNEBANTONIO, DR ARLEN Patel Consulting Unavailable SALOME, SANTOS Consulting Unavailable JESUS, SALINA Walker Consulting Unavailable AGUBOSIM, MICHELA Consulting Unavailable JORDI VALENZUELA Consulting Unavailable SUZANNESHERINE Consulting Unavailable JUSTEN, H Consulting Unavailable SALINA LEE Procedure Practitioner Unava ilable MARIA E BRASWELL Consulting Unavailable WOODY, AMAR Consulting Unavailable YUMARVAS, DR CHAVARRIA Primary Care Unavailable HIGHLARIS, SALINA Walker Attending Unavailable HIGHLSALINA HURST Consulting Unavailable SALINA LEE Admitting Unavailable HIGHLSALINA HURST Attending Unavailable WEST, DR ANAI Edmond Consulting Unavailable YUMARVAS, DR CHAVARRIA Primary Care Unavailable SALINA LEE Admitting Unavailable SALINA LEE Consulting Unavailable BALJEET LEONG O Attending Unavailabl e CLOUGHERTYBALJEET Admitting Unavailabl e [...] Care Provider DO Reddy Brandt Attending Provider [phone] RichardsDO Chavarria Primary Care Provider DO Reddy Brandt Attending Provider DO César Cortes Emergency Provider DO Reddy Brandt Admit Provider [phone] Ghanshyam Kaye Unavailable DO Deon Braxton Primary Care Provider [phone] DO Reddy Brandt Attending Provider Dung Serna Unavailable YOVANNY CALHOUN Attending Unavailable YOVANNY CALHOUN Referring Unavailable YOVANNY CALHOUN Attending Unavailable YOVANNY CALHOUN Referring Unavailable DEON BRAXTON Primary Care Unavailable Deon Braxton DO Primary Care Provider TERRY LOCK Attending Unavailable DEON BRAXTON Referring Unavailable DEON BRAXTON Primary Care Unavailable DO Deon Braxton Primary Care Provider [phone] ERIKA Lee Attending Provider Dung Serna Admitting Unavailable Dung Serna Attending Unavailable Deon Braxton Primary Care Unavailable Salina Lee Attending Unavailable Deon Braxton Primary Care Unavailable Salina Lee Admitting Unavailable Allergies Allergy Classification Reported Allergen(s) Allergy Type Date of Onset Reaction(s) Facility (20 sources) Chlorpheniramine; Translations: [chlorpheniramine] Drug Allergy 07-02-19 21 Hives [facility] Repository (15 sources) Dextromethorphan; Translations: [dextromethorphan] Drug Allergy 10-19-19 22 Unknown Reaction [facility] Repository (20 sources) Doxycycline; Translations: [doxycycline] Drug Allergy 04-02-19 21 FELT LIKE A HEART ATTACK, Chest Pain [facility] Repository (20 sources) guaiFENesin; Translations: [guaiFENesin] Drug Allergy 04-14-19 16 [facility] Repository (20 sources) levoFLOXacin; Translations: [levoFLOXacin] Drug Allergy 04-02-19 21 Chest Pain [facility] Repository (20 sources) Phenylephrine; Translations: [phenylephrine] Drug Allergy 07-02-19 21 Unknown Reaction [facility] Repository (1 source) Tussionex [employer]; Translations: [Tussionex [employer]] Propensity to adverse reactions to drug (disorder) [facility] Repository (20 sources) Tussin Drug allergy [employer] Other (19 sources) HYDROcodone; Translations: [HYDROCODONE] Drug Allergy 10-19-19 22 [facility] (4 sources) Chlorpheniramine / HYDROcodone; Translations: [TUSSIONEX] Drug Allergy [facility] Repository (7 sources) Dextromethorphan; Translations: [DEXTROMETHORPHAN HBR] Drug Allergy 10-18-19 23 Itching [facility] Repository (7 sources) [id number] INOPHEN; Translations: [[id number] MINOPHEN] Propensity to adverse reactions to drug (disorder) 02-04-20 [facility] Repository (5 sources) Chlorpheniramine / HYDROcodone Drug Allergy Itching [facility] (1 source) carbetapentane Drug Allergy 12-06-19 23 [facility] Repository Medications Current Medications Medication Drug Class(es) Dates Sig (Normalized) Sig (Original) acetaminophen 500 mg oral tablet (14 sources) Start: 10-27-2021 take 500 mg by mouth every four hours Acetaminophen Active 500 MG PO Q4H 100 October 26, 2021 11:00pm take 1 capsule by mouth every si x hours Acetaminophen 500 MG 1 capsule as needed Orally every 6 hrs Active [id number] 200 actuat albuterol 0.09 mg/actuat metered dose inhaler (20 sources) beta2-Adrenergic Agonist Start: 10-27-2021 take 1 puff(s) by inhalation once daily Albuterol Sulfate (Ventolin Hfa) 90 mcg/actuation Hfa Aerosol Inhaler Active 2 PUFF INHALATION Daily 1 October 26, 2021 11:00pm Start: 10-14-2021 End: 10-27-2021 Albuterol Sulfate Discontinu ed 2 INH INHALATION Daily 2021 11:00pm October 27, 2021 8:20am albuterol (PROVE NTIL HFA;VENTOLIN HFA) 90 mcg/actuation inhaler Indications: bronchospasm prevention Inhale 2 puffs as needed Indications: bronchospasm prevention. 0 Active Albuterol Active albuterol 0.833 mg/ml / ipratropium bromide 0.167 mg/ml inhalation solution (5 sources) Anticholinergic, beta2-Adrenergic Agonist Start: 11-09-2022 ipratropium-albuteroL (DUONEB) 0.5 mg-3 mg(2.5 mg base)/3 mL nebulizer Indications: COPD with acute exacerbation ([facility]) USE 3 ML VIA NEBULIZER [...] (5 mg total) before bedtime. 60 tablet 10/14/2021 Active atorvastatin 80 mg oral tablet (20 sources) HMG-CoA Reductase Inhibitor Start: 05-13-2023 take 1 tablet by mouth in the morning atorvastatin (LIPITOR) 80 mg tablet Indications: Pure hypercholesterolemia TAKE 1 TABLET(80 MG) BY MOUTH IN THE MORNING 90 tablet 1 05/13/2023 Active Start: 09-12-2022 End: 05-13-2023 take 1 tablet by mouth in the morning atorvastatin (LIPITOR) 80 mg tablet Indications: hyperlipidemia Take 1 tablet (80 mg total) by mouth in the morning. Indications: excessive fat in the blood. 90 tablet 1 09/12/2022 05/13/2023 Discontinued Start: 10-14-2021 End: 10-27-2021 take 1 tablet by mouth in the morning atorvastatin (LIPITOR) 80 mg tablet Indications: hyperlipidemia Take 1 tablet (80 mg total) by mouth in the morning. Indications: excessive fat in the blood. 90 tablet 1 09/12/2022 Active benzonatate 200 mg oral capsule (5 sources) Non-narcotic Antitussive Start: 11-03-2022 take 1 [...] Active 1 MG PO Twice daily 60 30 October 26, 2021 11:00pm Start: 10-14-2021 End: 10-27-2021 take 2 mg by mouth twice daily Bumetanide Discontinued 2 MG PO Twice daily 2021 11:00pm October 27, 2021 8:20am take 1 tablet by michael th every twenty-four hours Bumetanide 1 MG 1 tablet Orally Once a day Active carvedilol 6.25 mg oral tablet (20 sources) alpha-Adrenergic Doreen, beta-Adrenergic Doreen Start: 06-12-2022 End: 05-14-2023 take 1 tablet by mouth at bedtime carvediloL (COREG) 6.25 mg tablet TAKE 1 TABLET(6.25 MG) BY MOUTH IN THE MORNING AND AT BEDTIME 180 tablet 3 05/14/2023 Active Start: 10-14-2021 End: 10-27-2021 take 1 tablet by mouth in the morning, then take 1 tablet by mouth at bedtime carvediloL (COREG) 6.25 mg tablet Take 1 tablet (6.25 mg total) by mouth in the morning and 1 tablet (6.25 mg total) before bedtime. 180 tablet 3 06/12/2022 Active take 1 tablet by michael th at mealtime Carvedilol 12.5 MG 1 tablet with food Orally Active cholecalciferol 0.125 mg oral tablet (20 sources) Vitamin D Start: 10-27-2021 take 1 tablet by mouth twice daily Cholecalciferol (Vitamin D3) (Vitamin D3) 125 mcg (5,000 unit) Tablet Active 250 MCG PO Twice daily October 26, 2021 11:00pm Start: 10-14-2021 End: [...] 2021 12:00am collagenase 0.25 unt/mg topical ointment (5 sources) Collagen-specific Enzyme Start: 03-22-2023 End: 06-20-2023 collagenase (SantyL) ointment Apply 1 Application topically in the morning. 0 03/22/2023 06/20/2023 Active dapagliflozin 10 mg oral tablet (9 sources) Sodium-Glucose Cotransporter 2 Inhibitor Start: 10-26-2022 take 1 tablet by mouth in the morning dapagliflozin propanediol (FARXIGA) 10 mg tablet Indications: Chronic systolic congestive heart failure (CMS-HCC) Take 1 tablet (10 mg total) by mouth in the morning. 90 tablet 1 10/26/2022 Active take 5 mg by mouth once daily FA RXIGA 5mg As directed P.O. Daily Active flash glucose sensor (FREESTYLE LELO 2 SENSOR) kit (5 sources) Start: 02-18-2023 flash glucose sensor (FREESTYLE LELO 2 SENSOR) kit Indications: Type 2 diabetes mellitus with diabetic neuropathic arthropathy, with long-term current use of insulin ([facility]) CHANGE EVERY 2 WEEKS DIRECTED 6 kit [...] Active insulin lispro 100 unt/ml injectable solution (5 sources) Insulin Analog Start: 03-22-2023 ADMELOG U-100 INSULIN LISPRO 100 unit/mL solution Indications: Type 2 diabetes mellitus with diabetic neuropathic arthropathy, with long-term current use of insulin ([facility]) Inject 15 Units under the skin in the morning and 15 Units at noon and 15 Units in the evening. Inject with meals. 0 03/22/2023 Active linezolid 600 mg oral tablet (5 sources) Oxazolidinone Antibacterial take 1 tablet by mouth in the morning, then take 1 tablet by mouth at bedtime linezolid (ZYVOX) 600 mg tablet Take 1 tablet (600 mg total) by mouth in the morning and 1 tablet (600 mg total) before bedtime. 0 Active losartan potassium 25 mg oral tablet (20 sources) Angiotensin 2 Receptor Doreen Start: 10-10-2022 End: 05-14-2023 take 1 tablet by mouth in the morning losartan (COZAAR) 25 mg tablet Indications: Chronic systolic congestive heart failure (CMS-HCC) Take 1 tablet (25 mg total) by mouth in the morning. 90 tablet 3 05/14/2023 Active Start: 10-14-2021 End: 10-27-2021 take 1 tablet by mouth in the morning losartan (COZAAR) 25 mg tablet TAKE 1 TABLET(25 MG) BY MOUTH IN THE MORNING 90 tablet 0 10/10/2022 Active take 1 tablet by michael th every twenty-four hours magnesium oxide 400 mg oral tablet (20 sources) Start: 10-14-2021 End: 10-27-2021 take 400 mg by mouth once daily in the morning Magnesium Oxide Active 400 MG PO Every morning October 26, 2021 11:00pm multivitamin (THERAGRAN) tablet (5 sources) take 1 tablet by mouth in [...] oral tablet (10 sources) Opioid Agonist Start: 11-04-19 take 1 tablet by mouth every six hours Oxycodone (Roxicodone) 5 mg tablet Active 5 MG PO Q6H 30 7 [place] 4th, 2022 Start: 11-03-2021 take 1 tablet by michael [...] tablet (20 sources) Aldosterone Antagonist Start: 07-13-2022 End: 05-14-2023 take 1 tablet by mouth in the morning spironolactone (ALDACTONE) 25 mg tablet Indications: Chronic systolic congestive heart failure (CMS-HCC) Take 1 tablet (25 mg total) by mouth in the morning. 90 tablet 3 05/14/2023 Active Start: 10-14-2021 End: 10-27-2021 take 1 tablet by mouth once daily spironolactone (ALDACTONE) 25 mg tablet Indications: Chronic systolic congestive heart failure (CMS-HCC) TAKE 1 TABLET(25 MG) BY MOUTH EVERY DAY 90 tablet 2 07/13/2022 Active vitamin b12 1 mg extended re lease [...] aspirin 81 mg delayed release oral tablet (16 sources) Platelet Aggregation Inhibitor, Nonsteroidal Anti-inflammatory Drug [...] 10 mg daily orally Not-Taking/PRN Fluticasone Furoate-Vilanterol (15 sources) Corticosteroid, beta2-Adrenergic Agonist Start: 10-14-2021 End: [...] 9:20am Start: 10-07-2020 take 1 puff(s) by [facility] once daily fluticasone furoate-vilanteroL (BREO ELLIPTA) 200-25 [...] 2021 8:20am ubidecarenone 200 mg oral capsule (17 sources) Start: 2 End: 2 Coenzyme Q10 [...] 03-02-2021 Chronic obstructive pulmonary disease and bronchiectasis (6 sources) Chronic obstructive pulmonary disease, unspecified; Translations: [Chronic obstructive lung disease] Onset: 04-22-2020 04-22-2020 Chronic Complications of surgical procedures or medical care (20 sources) Other complications of procedures, not elsewhere classified, sequela; Translations: [Other complications of procedures, not elsewhere classified, subsequent encounter] Onset: 02-08-2021 Resolved: 12-14-2021 Episodic Conduction disorders (8 sources) Presence of automatic (implantable) cardiac defibrillator; Translations: [Cardiac defibrillator in situ] Onset: 09-06-2015 04-12-2023 Chronic Congestive heart failure; nonhypertensive (9 sources) Chronic systolic (congestive) heart failure; Translations: [Chronic systolic heart failure] Onset: 01-22-2020 04-12-2023 Chronic Coronary atherosclerosis and other heart disease (16 sources) Old myocardial infarction; Translations: [Atherosclerotic heart disease of knik coronary artery without angina pectoris] Onset: 11-23-2017 [...] Onset: 09-25-2018 10-22-2021 Chronic Diverticulosis and diverticulitis (5 sources) Diverticulosis of large intestine; Translations: [Diverticulosis of large intestine without perforation or abscess without bleeding] Onset: 04-07-2020 04-07-2020 Chronic Esophageal disorders (5 sources) Gastro-esophageal reflux disease with esophagitis; Translations: [...] kidney disease] Onset: 02-08-2021 Chronic Immunity disorders (5 sources) Sarcoidosis; Translations: [Sarcoidosis, unspecified] Onset: 12-21-2017 [...] sources) Long-term current use of insulin; Translations: [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 insulin] Episodic Other and ill-defined heart disease (6 sources) Mural thrombus of heart; Translations: [Intracardiac [...] Episodic Other ear and sense organ disorders (5 sources) Hearing loss; Translations: [Unspecified hearing loss, unspecified ear] Onset: 01-28-2020 01-28-2020 Chronic Other ear and sense organ disorders (5 sources) Sensorineural hearing loss, bilateral; Translations: [Sensorineural [...] Episodic Other nutritional; endocrine; and metabolic disorders (5 sources) 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; Translations: [Hypercalcemia] Onset: 04-22-2020 04-22-2020 Chronic Gissell-; endo-; and myocarditis; cardiomyopathy (except that caused by tuberculosis or sexually transmitted disease) (1 source) Cardiomyopathy in diseases classified elsewhere; Translations: [CARDIOMYOPATHY DZ CLASSIFIED ELSW] Onset: 03-02-2021 Chronic Residual codes; unclassified (1 source) Sleep apnea, unspecified; Translations: [SLEEP APNEA UNSPECIFIED] Onset: 03-02-2021 Chronic Residual codes; unclassified (15 sources) Obstructive sleep apnea syndrome; Translations: [Obstructive [...] ANKLE] Onset: 06-06-2021 Episodic Acute myocardial infarction (11 sources) Acute myocardial infarction, unspecified; Translations: [Acute ST segment elevation myocardial infarction involving left anterior descending coronary artery] Onset: 04-02-2014 Resolved: 12-29-2021 12-28-2021 Chronic Bacterial infection; unspecified site (1 source) Personal history of Methicillin resistant Staphylococcus aureus infection; Translations: [PERS HX METHICILLIN RSIST STAPH INF] Onset: 03-02-2021 Episodic Chronic ulcer of skin (20 sources) Non-pressure 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 with fat layer exposed; Translations: [Pressure ulcer of right ankle, stage 1] Onset: 09-10-2019 Resolved: 10-29-2019 Chronic Complication of device; implant or graft (1 source) Other specified complication of internal orthopedic prosthetic devices, implants and grafts, initial encounter; Translations: [OTH COMP INTRL ORTHO PROS DEVC INIT] Onset: 03-02-2021 Episodic Esophageal disorders (5 sources) Esophageal mass; 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] Onset: 05-19-2020 05-19-2020 Episodic Infective arthritis and osteomyelitis (except that caused by tuberculosis or sexually transmitted disease) (20 sources) Osteomyelitis; Translations: [Osteomyelitis, unspecified] Onset: 01-10-2019 Resolved: 07-13-2022 Chronic Mood disorders (5 sources) Mood disorders Onset: 03-22-2023 03-22-2023 Mycoses (5 sources) Tinea unguium; Translations: [TINEA UNGUIUM] Onset: 05-03-2021 Episodic Open wounds of extremities (1 source) Unspecified open wound, right ankle, initial encounter; Translations: [UNS OPEN WOUND RIGHT ANKLE INITIAL] Onset: 01-18-2021 Episodic Other aftercare (1 source) 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; Translations: [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 FURNACE OPERATOR CURRENT USE OF ASPIRIN] Onset: 03-02-2021 Episodic Other aftercare (1 source) [facility] (current) use of insulin; Translations: [REDUCTION FURNACE OPERATOR CURRENT USE OF INSULIN] Onset: 03-02-2021 Episodic Other aftercare (1 source) 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 [employer] (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) drug therapy; Translations: [OTH PENITENTIARY CURRENT DRUG THERAPY] Onset: 03-02-2021 Episodic Other aftercare (4 sources) Encounter for change or removal of nonsurgical wound dressing; Translations: [ENC CHG/REMOVAL NONSURG WOUND DRSG] Onset: 12-03-2020 Episodic Other aftercare (1 source) Encounter for removal of sutures Onset: 11-28-2021 Resolved: 11-28-2021 Episodic Other and unspecified benign neoplasm (5 sources) History of polyp of colon; Translations: [Personal history of colonic polyps] Onset: 03-19-2020 03-19-2020 Episodic Other and unspecified benign neoplasm (5 sources) Polyp of colon; Translations: [Polyp of colon] Onset: 04-07-2020 04-07-2020 Episodic Other connective tissue disease (5 sources) Pain in right foot; Translations: [PAIN IN RIGHT FOOT] Onset: 01-20-2021 Episodic Other connective tissue disease (1 source) Pain in right leg; Translations: [PAIN IN RIGHT LEG] Onset: 03-16-2021 Episodic Other ear and sense organ disorders (5 sources) Eczema of external auditory canal; Translations: [Acute eczematoid otitis externa, bilateral] Onset: 01-28-2020 Resolved: 12-28-2021 12-28-2021 Episodic Other ear and sense organ disorders (5 sources) Wax in ear canal; Translations: [Impacted cerumen, left ear] Onset: 01-28-2020 Resolved: 12-28-2021 12-28-2021 Episodic Other ear and sense organ disorders (5 sources) Lesion of external ear; Translations: [Disorder [...] Test Name Value Interpretation Reference Range Facility [facility] 04-19-2023 L Specimen: [id number] Received: 04/20/23 Status: MINEKevin Matta Num: [id number] Spec Type: Surgical Subm Dr: Salina Lee DPM, MS Tissues: A Bone Fragments - Other than Path Fracture (LT LATERAL MALLEOLUS) Procedures: HE, Gross/Micro L3, Decalcification Age/ Patient Sex Location Account Attending Physician Anai Goodman 67/M LABELL [id number] Salina Lee DPM, MS SPEC NUM: [id number] RECD: 04/20/23 STATUS: SASHA ROMELIA NUM: [id number] KARIME: 04/19/[address]: Salina Lee DPM, MS ENTERED: 04/20/[address]: Gin Gimenez SPEC TYPE: Surgical DEPT: ROSA M RILEY ORDERED: HE, Gross/Micro L3, Decalcification ORDERED: HE, Gross/Micro L3, Decalcification Pathological Diagnosis Left lateral [...] in one cassette labeled A1. CPT Codes 83013, 32341 -------- -------- Specimen: [id number] Received: 04/20/23 Status: SASHA Matta Num: [id number] Spec Type: Surgical Subm Dr: Salina Lee,ERIKA, MS Tissues: A Bone Fragments - Other than Path Fracture (LT LATERAL MALLEOLUS) Procedures: HARRISON Gross/Josey L3, Decalcification -------- Patient: Anai Goodman [id number] (Continued) -------- Signed (signature on file) Aniket Krishnamurthy MD 04/23/232202 [facility] POCT Karlos 04-12-2023 [facility] MR ANKLE LT W WO CONTon 01-0 MR ANKLE LT W WO CONT MR [...] Bennett MD on 04/05/2023 8:50 AM Normal [facility] XR cervical spine 2Von 10-05 XR cervical spine 2V [facility] [place] [place] [address] [place] [address] XRay Report Signed Patient: Anai Goodman MR#: [id number] : 1955 Acct:[id number] Age/Sex: 66 / M ADM Date: 10/05/22 Loc: XD Room: Type: [facility] Attending Dr: Dung Serna MD Copies [...] Jose Sanabria M.D.10/05/2022 12:36 PM Dictation Location: [place] [address] Transcribed By: BLANCA 10/05/22 1236 Dictated By: Jose Sanabria DO 10/05/22 1233 Signed By: 10/05/22 1236 Normal [facility] Basophils Auto (Bld) [#/Vol] Ordered By: Spenser Elaine on 11-29-2021 Basophils (Bld) [#/Vol] 0.0 10*3/uL 0.0-0.2 [facility] Basophils/100 WBC Auto (Bld) Ordered By: Spenser Elaine on 11-29-2021 Basophils/100 WBC (Bld) 0.5 % . [facility] Blood hemoglobin measurement (mass/volume)Ordered By: Spenser Elaine on 11-29-2021 Hemoglobin (Bld) [Mass/Vol] 12.6 g/dL 13.0-17.0 [facility] Blood leukocytes automated c ount (number/volume)Ordered By: Spenser Elaine on 11-29-2021 WBC (Bld) [#/Vol] 6.8 10*3/uL 4.5-11.0 [facility] COVID CepheidOrdered By: Junior Cortes on 11-29-2021 SARS-CoV-2 (COVID-19) Ab IA Ql Negative Negative [facility] Comment on above: This is a duplicate CepG2 Microsystem[employer] Xpert Xpress CoV-2/Flu/RSV Plus RNA by RT-PCR result to be used for statistical tracking purpose only. SARS-CoV-2 (COVID-19) RNA MEREDITH+probe Ql (Unsp spec) [facility] Creatinine and Glomerular fi ltration rate.predicted panel (S/P/Bld)Ordered By: Spenser Elaine on 11-29-2021 Creatinine [Mass/Vol] 1.38 mg/dL 0.64-1.27 [facility] Eosinophils Auto (Bld) [#/Vo l]Ordered By: Spenser Elaine on 11-29-2021 Eosinophils (Bld) [#/Vol] 0.5 10*3/uL 0.0-0.45 [facility] Eosinophils/100 WBC Auto (Bl d)Ordered By: Spenser Elaine on 11-29-2021 Eosinophils/100 WBC (Bld) 7.5 % . [facility] Erythrocyte distribution wid th Auto (RBC) [Ratio]Ordered By: Spenser Elaine on 11-29-2021 Erythrocyte distribution width (RBC) [Ratio] 15.7 % 12.0-14.8 [facility] Estimated glomerular filtrat ion rate (GFR) non- AmericanOrdered By: Spenser Elaine on 11-29-2021 GFR/1.73 sq M.predicted among non-blacks MDRD (S/P/Bld) [Vol rate/Area] 52 mL/Min [facility] Glucose Glucometer (dC) [M ass/Vol]Ordered By: Reddy Brandt on 11-29-2021 Glucose [Mass/Vol] 141 mg/dL [facility] Comment on above: Random Glucose Refer ence Range is dependent on time and content of last meal. Glucose of more than 200 mg/dL in a nonstressed, ambulatory subject supports the diagnosis of Diabetes Mellitus. Hematocrit Auto (Bld) [Volum e fraction]Ordered By: Spenser Elaine on 11-29-2021 Hematocrit (Bld) [Volume fraction] 38.3 % 38.8-50.0 [facility] Laboratory - Hematology and Cell countsOrdered By: Spenser Elaine on 11-29-2021 Nucleated RBC/100 WBC (Bld) [Ratio] 0.0 % 0-0.5 [facility] - Microbiology an d Antimicrobial susceptibilityOrdered By: César Cortes on 11-29-2021 SARS-CoV-2 (COVID-19) RNA MEREDITH+probe Ql (Unsp spec) N/A [facility] Lymphocytes Auto (Bld) [#/Vo l]Ordered By: Spenser Elaine on 11-29-2021 Lymphocytes (Bld) [#/Vol] 0.6 10*3/uL 1.00-4.8 [facility] Lymphocytes/100 WBC Auto (Bl d)Ordered By: Spenser Elaine on 11-29-2021 Lymphocytes/100 WBC (Bld) 9.0 % . [facility] MCH Auto (RBC) [Entitic mass ]Ordered By: Spenser Elaine on 11-29-2021 MCH (RBC) [Entitic mass] 27.6 pg 27.5-35.2 [facility] MCHC Auto (RBC) [Mass/Vol]Or dered By: Spenser Elaine on 11-29-2021 MCHC (RBC) [Mass/Vol] 32.8 g/dL 32.5-35.6 [facility] MCV Auto (RBC) [Entitic vol] Ordered By: Spenser Elaine on 11-29-2021 MCV (RBC) [Entitic vol] 84.3 fL 83.5-101 [facility] Monocytes Auto (Bld) [#/Vol] Ordered By: Spenser Elaine on 11-29-2021 Monocytes (Bld) [#/Vol] 0.7 10*3/uL 0.0-0.8 [facility] Monocytes/100 WBC Auto (Bld) Ordered By: Spenser Elaine on 11-29-2021 Monocytes/100 WBC (Bld) 10.9 % . [facility] Neutrophils Auto (Bld) [#/Vo l]Ordered By: Spenser Elaine on 11-29-2021 Neutrophils (Bld) [#/Vol] 4.9 10*3/uL 1.8-7.7 [facility] Neutrophils/100 WBC Auto (Bl d)Ordered By: Spenser Elaine on 11-29-2021 Neutrophils/100 WBC (Bld) 72.1 % . [facility] No Panel InformationOrdered By: Reddy Brandt on 11-29-2021 Bedside Glucose Comment Glu2: cleaned meter [facility] No Panel InformationOrdered By: Spenser Elaine on 11-29-2021 Estimated GFR () > 60 mL/Min [facility] Comment on above: GFR estimated refere nce range: According to KDOQI guidelines, <60 ml/min/1.73m2 is sufficient to diagnose a patient with chronic kidney disease. Pharmacy Creatinine Clearance (Chem 66.84 [facility] Platelet mean volume Auto (B ld) [Entitic vol]Ordered By: Spenser Elaine on 11-29-2021 Platelet mean volume (Bld) [Entitic vol] 9.3 fL 6.6-10.1 [facility] Platelets Auto (Bld) [#/Vol] Ordered By: Spenser Elaine on 11-29-2021 Platelets (Bld) [#/Vol] 142 10*3/uL 150-450 [facility] RBC Auto (Bld) [#/Vol]Ordere d By: Spenser Elaine on 11-29-2021 RBC (Bld) [#/Vol] 4.54 10*6/uL 3.90-5.60 [facility] Serum or plasma anion gap de terminationOrdered By: Spenser Elaine on 11-29-2021 Anion gap [Moles/Vol] 12.0 mmol/L 6.0-15.0 [facility] Serum or plasma calcium sergei urement (mass/volume)Ordered By: Spenser Elaine on 11-29-2021 Calcium [Mass/Vol] 10.0 mg/dL 8.2-10.2 [facility] Serum or plasma chloride zofia surement (moles/volume)Ordered By: Spenser Elaine on 11-29-2021 Chloride [Moles/Vol] 100 mmol/L 95-114 [facility] Serum or plasma glucose sergei urement (mass/volume)Ordered By: Spenser Elaine on 11-29-2021 Glucose [Mass/Vol] 130 mg/dL 70-100 [facility] Comment on above: ADA recommended refe [...] on 11-29-2021 Potassium [Moles/Vol] 4.0 mmol/L 3.5-5.1 [facility] Serum or plasma sodium measu rement (moles/volume)Ordered By: Spenser Elaine on 11-29-2021 Sodium [Moles/Vol] 138 mmol/L 136-146 [facility] Serum or plasma total carbon dioxide measurement (moles/volume)Ordered By: Spenser Elaine on 11-29-2021 CO2 [Moles/Vol] 30.0 mmol/L 22.0-30.0 [facility] Serum or plasma urea nitroge n measurement (mass/volume)Ordered By: Spenser Elaine on 11-29-2021 Urea nitrogen [Mass/Vol] 22 mg/dL 12-23 [facility] Glucose Glucometer (BldC) [M ass/Vol]Ordered By: Reddy Brandt on 11-03-2021 Glucose [Mass/Vol] 174 mg/dL [facility] Comment on above: Random Glucose Refer ence Range is dependent on time and content of last meal. Glucose of more than 200 mg/dL in a nonstressed, ambulatory subject supports the diagnosis of Diabetes Mellitus. No Panel InformationOrdered By: Reddy Brandt on 11-03-2021 Bedside Glucose Comment Glu2: cleaned meter [facility] COVID-19 Positive/NegativeOr dered By: Reddy Brandt on 11-02-2021 SARS-CoV-2 (COVID-19) N gene MEREDITH+probe Ql (Resp) Negative Negative [facility] Comment on above: Testing for SARS-CoV -2 by RT-PCR This test was developed and its performance characteristics determined by [employer] ([employer]) and validated at the [facility]. This test has not been FDA [...] characteristics determined by [employer] ([employer]) and validated at the [facility]. This test has not been FDA [...] Kaye on 10-27-2021 Glucose [Mass/Vol] 166 mg/dL [facility] Comment on above: Random Glucose Refer ence Range is dependent on time and content of last meal. Glucose of more than 200 mg/dL in a nonstressed, ambulatory subject supports the diagnosis of Diabetes Mellitus. No Panel InformationOrdered By: Ghanshyam Kaye on 10-27-2021 Bedside Glucose Comment Glu2: cleaned meter [facility] Basophils Auto (Bld) [#/Vol] Ordered By: Chante Narayan on 10-25-2021 Basophils (Bld) [#/Vol] 0.0 10*3/uL 0.0-0.2 [facility] Basophils/100 WBC Auto (Bld) Ordered By: Chante Narayan on 10-25-2021 Basophils/100 WBC (Bld) 0.3 % . [facility] Blood hemoglobin measurement (mass/volume)Ordered By: Chante Narayan on 10-25-2021 Hemoglobin (Bld) [Mass/Vol] 11.2 g/dL 13.0-17.0 [facility] Blood leukocytes automated c ount (number/volume)Ordered By: Chante Narayan on 10-25-2021 WBC (Bld) [#/Vol] 5.7 10*3/uL 4.5-11.0 [facility] Creatinine and Glomerular fi ltration rate.predicted panel (S/P/Bld)Ordered By: Chante Narayan on 10-25-2021 Creatinine [Mass/Vol] 1.24 mg/dL 0.64-1.27 [facility] Eosinophils Auto (Bld) [#/Vo l]Ordered By: Chante Narayan on 10-25-2021 Eosinophils (Bld) [#/Vol] 0.4 10*3/uL 0.0-0.45 [facility] Eosinophils/100 WBC Auto (Bl d)Ordered By: Chante Narayan on 10-25-2021 Eosinophils/100 WBC (Bld) 6.7 % . [facility] Erythrocyte distribution wid th Auto (RBC) [Ratio]Ordered By: Chante Narayan on 10-25-2021 Erythrocyte distribution width (RBC) [Ratio] 17.6 % 12.0-14.8 [facility] Estimated glomerular filtrat ion rate (GFR) non- AmericanOrdered By: Chante Narayan on 10-25-2021 GFR/1.73 sq M.predicted among non-blacks MDRD (S/P/Bld) [Vol rate/Area] 59 mL/Min [facility] Hematocrit Auto (Bld) [Volum e fraction]Ordered By: Chante Narayan on 10-25-2021 Hematocrit (Bld) [Volume fraction] 33.0 % 38.8-50.0 [facility] Laboratory - Hematology and Cell countsOrdered By: Chante Narayan on 10-25-2021 Nucleated RBC/100 WBC (Bld) [Ratio] 0.1 % 0-0.5 [facility] Lymphocytes Auto (Bld) [#/Vo l]Ordered By: Chante Narayan on 10-25-2021 Lymphocytes (Bld) [#/Vol] 0.5 10*3/uL 1.00-4.8 [facility] Lymphocytes/100 WBC Auto (Bl d)Ordered By: Chante Narayan on 10-25-2021 Lymphocytes/100 WBC (Bld) 9.4 % . [facility] MCH Auto (RBC) [Entitic mass ]Ordered By: Chante Narayan on 10-25-2021 MCH (RBC) [Entitic mass] 29.3 pg 27.5-35.2 [facility] MCHC Auto (RBC) [Mass/Vol]Or dered By: Chante Narayan on 10-25-2021 MCHC (RBC) [Mass/Vol] 33.8 g/dL 32.5-35.6 [facility] MCV Auto (RBC) [Entitic vol] Ordered By: Chante Narayan on 10-25-2021 MCV (RBC) [Entitic vol] 86.7 fL 83.5-101 [facility] Monocytes Auto (Bld) [#/Vol] Ordered By: Chante Narayan on 10-25-2021 Monocytes (Bld) [#/Vol] 0.8 10*3/uL 0.0-0.8 [facility] Monocytes/100 WBC Auto (Bld) Ordered By: Chante Narayan on 10-25-2021 Monocytes/100 WBC (Bld) 14.5 % . [facility] Neutrophils Auto (Bld) [#/Vo l]Ordered By: Chante Narayan on 10-25-2021 Neutrophils (Bld) [#/Vol] 4.0 10*3/uL 1.8-7.7 [facility] Neutrophils/100 WBC Auto (Bl d)Ordered By: Chante Narayan on 10-25-2021 Neutrophils/100 WBC (Bld) 69.1 % . [facility] No Panel InformationOrdered By: Chante Narayan on 10-25-2021 Estimated GFR () > 60 mL/Min [facility] Comment on above: GFR estimated refere nce range: According to KDOQI guidelines, <60 ml/min/1.73m2 is sufficient to diagnose a patient with chronic kidney disease. Pharmacy Creatinine Clearance (Chem 60.35 [facility] Platelet mean volume Auto (B ld) [Entitic vol]Ordered By: Chante Narayan on 10-25-2021 Platelet mean volume (Bld) [Entitic vol] 8.6 fL 6.6-10.1 [facility] Platelets Auto (Bld) [#/Vol] Ordered By: Chante Narayan on 10-25-2021 Platelets (Bld) [#/Vol] 159 10*3/uL 150-450 [facility] RBC Auto (Bld) [#/Vol]Ordere d By: Chante Narayan on 10-25-2021 RBC (Bld) [#/Vol] 3.81 10*6/uL 3.90-5.60 [facility] Serum or plasma calcium sergei urement (mass/volume)Ordered By: Chante Narayan on 10-25-2021 Calcium [Mass/Vol] 9.1 mg/dL 8.2-10.2 [facility] Serum or plasma chloride zofia surement (moles/volume)Ordered By: Chante Narayan on 10-25-2021 Chloride [Moles/Vol] 102 mmol/L 95-114 [facility] Serum or plasma glucose sergei urement (mass/volume)Ordered By: Chante Narayan on 10-25-2021 Glucose [Mass/Vol] 176 mg/dL 70-100 [facility] Comment on above: ADA recommended refe rence range Random Glucose Reference Range is dependent on time and content of last meal. Glucose of more than 200 mg/dL in a nonstressed, ambulatory subject supports the diagnosis of Diabetes Mellitus. Serum or plasma potassium me asurement (moles/volume)Ordered By: Chante Narayan on 10-25-2021 Potassium [Moles/Vol] 3.6 mmol/L 3.5-5.1 [facility] Serum or plasma sodium measu rement (moles/volume)Ordered By: Chante Narayan on 10-25-2021 Sodium [Moles/Vol] 136 mmol/L 136-146 [facility] Serum or plasma total carbon dioxide measurement (moles/volume)Ordered By: Chante Narayan on 10-25-2021 CO2 [Moles/Vol] 25.8 mmol/L 22.0-30.0 [facility] Serum or plasma urea nitroge n measurement (mass/volume)Ordered By: Chante Narayan on 10-25-2021 Urea nitrogen [Mass/Vol] 32 mg/dL 12-23 [facility] Albumin [Mass/volume] in Ser um or PlasmaOrdered By: Chante Narayan on 10-22-2021 Albumin [Mass/Vol] 3.1 g/dL 3.2-5.5 [facility] Globulin Calc (S) [Mass/Vol] Ordered By: Chante Narayan on 10-22-2021 Globulin (S) [Mass/Vol] 3.0 g/dL [facility] Protein [Mass/volume] in Ser um or PlasmaOrdered By: Chante Narayan on 10-22-2021 Protein [Mass/Vol] 6.1 g/dL 6.1-7.9 [facility] Serum or plasma alanine dasilva otransferase measurement without P-5'-P (enzymatic activiOrdered By: Chante Narayan on 10-22-2021 ALT No additional P-5'-P [Catalytic activity/Vol] 21 U/L 10-60 [facility] Serum or plasma albumin/glob ulin mass ratioOrdered By: Chante Narayan 10-22-2021 Albumin/Globulin [Mass ratio] 1.0 {ratio} [facility] Serum or plasma alkaline bob sphatase measurement (enzymatic activity/volume)Ordered By: Chante Narayan on 10-22-2021 ALP [Catalytic activity/Vol] 71 U/L 32-92 [facility] Serum or plasma aspartate am inotransferase measurement (enzymatic activity/volume)Ordered By: Chante Narayan on 10-22-2021 AST [Catalytic activity/Vol] 23 U/L 10-42 [facility] Serum or plasma prealbumin m easurement (mass/volume)Ordered By: Chanet Narayan 10-22-2021 Prealbumin [Mass/Vol] 19.4 mg/dL 18.0-38.0 [facility] Serum or plasma total biliru bin measurement (mass/volume)Ordered By: Chante Narayan 10-22-2021 Bilirubin [Mass/Vol] 1.0 mg/dL 0.3-1.2 [facility] Bacteria identified Anaer cx Nom (Unsp spec)Ordered By: Reddy Brandt on 10-21-2021 Anaerobic microbial culture No Anaerobes Isolated 3 Days [facility] COVID-19 Positive/NegativeOr dered By: Reddy Brandt on 10-21-2021 SARS-CoV-2 (COVID-19) N gene MEREDITH+probe Ql (Resp) Negative Negative [facility] Comment on above: Testing for SARS-CoV -2 by RT-PCR This test was developed and its performance characteristics determined by [employer] ([employer]) and validated at the [facility]. This test has not been FDA [...] Brandt on 10-21-2021 Glucose [Mass/Vol] 298 mg/dL [facility] Comment on above: Random Glucose Refer ence Range is dependent on time and content of last meal. Glucose of more than 200 mg/dL in a nonstressed, ambulatory subject supports the diagnosis of Diabetes Mellitus. No Panel InformationOrdered By: Reddy Brandt on 10-21-2021 Bedside Glucose Comment Glu2: cleaned meter [facility] Bedside Glucose #2 Comment Cleaned meter [facility] ABO and Rh group post transf usion reaction Nom (Bld)Ordered By: Reddy Brandt on 10-19-2021 Microscopic observation Gram stain Nom (Unsp spec) [facility] COVID-19 Positive/NegativeOr dered By: Reddy Brandt on 10-14-2021 SARS-CoV-2 (COVID-19) N gene MEREDITH+probe Ql (Resp) Negative Negative [facility] Comment on above: Testing for SARS-CoV -2 by RT-PCR This test was developed and its performance characteristics determined by [employer] ([employer]) and validated at the [facility]. This test has not been FDA [...] 10-06-2021 Basophils (Bld) [#/Vol] 0.0 10*3/uL 0.0-0.2 [facility] Basophils/100 WBC Auto (Bld) Ordered By: Reddy Brandt on 10-06-2021 Basophils/100 WBC (Bld) 0.6 % . [facility] Blood hemoglobin measurement (mass/volume)Ordered By: Reddy Brandt on 10-06-2021 Hemoglobin (Bld) [Mass/Vol] 13.7 g/dL 13.0-17.0 [facility] Blood leukocytes automated c ount (number/volume)Ordered By: Reddy Brandt on 10-06-2021 WBC (Bld) [#/Vol] 7.8 10*3/uL 4.5-11.0 [facility] Creatinine and Glomerular fi ltration rate.predicted panel (S/P/Bld)Ordered By: Reddy Brandt on 10-06-2021 Creatinine [Mass/Vol] 1.76 mg/dL 0.64-1.27 [facility] Eosinophils Auto (Bld) [#/Vo l]Ordered By: Reddy Brandt on 10-06-2021 Eosinophils (Bld) [#/Vol] 0.4 10*3/uL 0.0-0.45 [facility] Eosinophils/100 WBC Auto (Bl d)Ordered By: Reddy Brandt on 10-06-2021 Eosinophils/100 WBC (Bld) 4.9 % . [facility] Erythrocyte distribution wid th Auto (RBC) [Ratio]Ordered By: Reddy Brandt on 10-06-2021 Erythrocyte distribution width (RBC) [Ratio] 18.8 % 12.0-14.8 [facility] Erythrocyte sedimentation ra te by Photometric methodOrdered By: Reddy Brandt on 10-06-2021 ESR Photometric method (Bld) [Velocity] 21 mm/hr 0-19 [facility] Estimated glomerular filtrat ion rate (GFR) non- AmericanOrdered By: Reddy Brandt on 10-06-2021 GFR/1.73 sq M.predicted among non-blacks MDRD (S/P/Bld) [Vol rate/Area] 39 mL/Min [facility] Glucose mean value [Mass/vol ume] in Blood Estimated from glycated hemoglobinOrdered By: Reddy Brandt on 10-06-2021 Average glucose Estimated from glycated hemoglobin (Bld) [Mass/Vol] 163 mg/dL [facility] Hematocrit Auto (Bld) [Volum e fraction]Ordered By: Reddy Brandt on 10-06-2021 Hematocrit (Bld) [Volume fraction] 41.1 % 38.8-50.0 [facility] Hemoglobin A1c percentageOrd ered By: Reddy Brandt on 10-06-2021 HbA1c (Bld) [Mass fraction] 7.3 % 4.3-5.6 [facility] Comment on above: Increased risk for d iabetes: 5.7 - 6.4 diabetes: >6.4 glycemic control for adults with diabetes: <7.0 Laboratory - Hematology and Cell countsOrdered By: Reddy Brandt on 10-06-2021 Nucleated RBC/100 WBC (Bld) [Ratio] 0.0 % 0-0.5 [facility] Lymphocytes Auto (Bld) [#/Vo l]Ordered By: Reddy Brandt on 10-06-2021 Lymphocytes (Bld) [#/Vol] 0.8 10*3/uL 1.00-4.8 [facility] Lymphocytes/100 WBC Auto (Bl d)Ordered By: Reddy Brandt on 10-06-2021 Lymphocytes/100 WBC (Bld) 10.9 % . [facility] MCH Auto (RBC) [Entitic mass ]Ordered By: Reddy Brandt on 10-06-2021 MCH (RBC) [Entitic mass] 28.8 pg 27.5-35.2 [facility] MCHC Auto (RBC) [Mass/Vol]Or dered By: Reddy Brandt on 10-06-2021 MCHC (RBC) [Mass/Vol] 33.3 g/dL 32.5-35.6 [facility] MCV Auto (RBC) [Entitic vol] Ordered By: Reddy Brandt on 10-06-2021 MCV (RBC) [Entitic vol] 86.3 fL 83.5-101 [facility] Monocytes Auto (Bld) [#/Vol] Ordered By: Reddy Brandt on 10-06-2021 Monocytes (Bld) [#/Vol] 0.9 10*3/uL 0.0-0.8 [facility] Monocytes/100 WBC Auto (Bld) Ordered By: Reddy Brandt on 10-06-2021 Monocytes/100 WBC (Bld) 11.8 % . [facility] Neutrophils Auto (Bld) [#/Vo l]Ordered By: Reddy Brandt on 10-06-2021 Neutrophils (Bld) [#/Vol] 5.6 10*3/uL 1.8-7.7 [facility] Neutrophils/100 WBC Auto (Bl d)Ordered By: Reddy Brandt on 10-06-2021 Neutrophils/100 WBC (Bld) 71.8 % . [facility] No Panel InformationOrdered By: Reddy Brandt on 10-06-2021 Estimated GFR () 48 mL/Min [facility] Comment on above: GFR estimated refere nce range: According to KDOQI guidelines, <60 ml/min/1.73m2 is sufficient to diagnose a patient with chronic kidney disease. Pharmacy Creatinine Clearance (Chem N/A [facility] Platelet mean volume Auto (B ld) [Entitic vol]Ordered By: Reddy Brandt on 10-06-2021 Platelet mean volume (Bld) [Entitic vol] 9.1 fL 6.6-10.1 [facility] Platelets Auto (Bld) [#/Vol] Ordered By: Reddy Brandt on 10-06-2021 Platelets (Bld) [#/Vol] 131 10*3/uL 150-450 [facility] RBC Auto (Bld) [#/Vol]Ordere d By: Reddy Brandt on 10-06-2021 RBC (Bld) [#/Vol] 4.77 10*6/uL 3.90-5.60 [facility] Serum or plasma C reactive p rotein measurement (mass/volume)Ordered By: Reddy Brandt on 10-06-2021 CRP [Mass/Vol] 0.5 mg/dL 0.0-1.0 [facility] Serum or plasma chloride zofia surement (moles/volume)Ordered By: Reddy Brandt on 10-06-2021 Chloride [Moles/Vol] 93 mmol/L 95-114 [facility] Serum or plasma potassium me asurement (moles/volume)Ordered By: Reddy Brandt on 10-06-2021 Potassium [Moles/Vol] 3.8 mmol/L 3.5-5.1 [facility] Serum or plasma sodium measu rement (moles/volume)Ordered By: Reddy Brandt on 10-06-2021 Sodium [Moles/Vol] 139 mmol/L 136-146 [facility] Serum or plasma total carbon dioxide measurement (moles/volume)Ordered By: Reddy Brandt on 10-06-2021 CO2 [Moles/Vol] 31.4 mmol/L 22.0-30.0 [facility] Serum or plasma urea nitroge n measurement (mass/volume)Ordered By: Reddy Brandt on 10-06-2021 Urea nitrogen [Mass/Vol] 52 mg/dL 9-23 [facility] WOUND CULTUREon 09-12-2021 Bacteria identified Aer cx Nom (Unsp spec) Final report Normal [facility] Comment on above: Performed By: #### C XWND ####[facility] [id number] [place] [id number]. Biancaramona Tez Result 1 Mixed skin areli Normal [facility] Comment on above: Performed By: #### C XWND ####[facility] [id number] [place] [address]Dr. Biancaramona Reagan CBC AUTO DIFFon 09-09-2021 BASO # 0.0 103/ul Normal 0.0-0.1 [facility] Comment on above: Performed By: #### C BC ####[facility] [id number] [place], [place] [address]Dr. Anjali Reagan Basophils/100 WBC (Bld) 0.6 % Normal 0.2-2.0 [facility] Comment on above: Performed By: #### C BC ####[facility] [address] [place], [place] [address]Dr. Anjali Reagan EO # 0.3 103/ul Normal 0.0-0.7 [facility] Comment on above: Performed By: #### C BC ####[facility] [address] [place], [place] [address]Dr. Anjali Reagan Eosinophils/100 WBC (Bld) 4.1 % Normal 0.9-7.0 [facility] Comment on above: Performed By: #### C BC ####[facility] [id number] [place], [place] [address]Dr. Anjali Reagan Erythrocyte distribution width (RBC) [Ratio] 16.1 % Critically high 11.0-15.0 [facility] Comment on above: Performed By: #### C BC ####[facility] [address] [place], [place] [address]Dr. Anjali Reagan Hematocrit (Bld) [Volume fraction] 38.3 % Critically low 42.0-54.0 [facility] [facility] Comment on above: Performed By: #### C BC ####[facility] Yxrearvfot34[address] [place] [address]Dr. Anjali Reagan Hemoglobin (Bld) [Mass/Vol] 12.0 g/dL Critically low 14.0-18.0 The [facility] Comment on above: Performed By: #### C BC ####[facility] Ekhximsizu[address] [place] [id number]. Anjali Reagan IG # 0.04 10e3/ul Critically high 0.00-0.03 [facility] Comment on above: Performed By: #### C BC ####[facility] Pkfzwizfki29[address] [place] [address]Dr. Anjali Reagan IG % 0.6 % Critically high 0.0-0.5 The [facility] Comment on above: Performed By: #### C BC ####[facility] Fumxhcgmpy[address] [place], [place] [address]Dr. Anjali Reagan LYMPH # 0.9 103/ul Critically low 1.2-3.8 The [facility] Comment on above: Performed By: #### C BC ####[facility] Ehcotttsan5[address] [place] [address]Dr. Anjali Reagan Lymphocytes/100 WBC (Bld) 12.6 % Critically low 20.5-60.0 The [facility] Comment on above: Performed By: #### C BC ####[facility] Yfidofqkec15[address] [place] [address]Dr. Anjali Reagan MANUAL DIFF REQ NO Normal The [facility] Comment on above: Performed By: #### C BC ####[facility] Brpsblutgv4214 [place] [address]Dr. Anjali Reagan MCH (RBC) [Entitic mass] 27.5 pg Normal 25.9-34.0 The [facility] Comment on above: Performed By: #### C BC ####[facility] Epfmcdzuaj17[address] [place], [place] [address]Dr. Anjali Reagan MCHC (RBC) [Mass/Vol] 31.3 g/dL Normal 29.9-35.2 The [facility] Comment on above: Performed By: #### C BC ####[facility] Ahfovxyogl0366 [place] [id number]. Anjali Reagan MCV (RBC) [Entitic vol] 87.6 fL Normal 80.0-94.0 [facility] Comment on above: Performed By: #### C BC ####[facility] Kpixxxyizh5495 [place] [phone]. Anjali Reagan MONO # 0.7 103/ul Normal 0.3-0.8 [facility] Comment on above: Performed By: #### C BC ####[facility] Fnmeglbfnp8804 [place] [phone]. Anjali Reagan Monocytes/100 WBC (Bld) 10.3 % Normal 1.7-12.0 [facility] Comment on above: Performed By: #### C BC ####[facility] Dwbewfrsiq334[address] [place], [place] [address]Dr. Anjali Reagan NEUT # 5.1 103/ul Normal 1.4-6.5 [facility] Comment on above: Performed By: #### C BC ####[facility] Omukfemray19[address] [place] [address]Dr. Anjali Reagan Neutrophils/100 WBC (Bld) 71.8 % Normal 43.0-75.0 [facility] Comment on above: Performed By: #### C BC ####[facility] Jxbwbyqchy6047 [place] [phone]. Anjali Reagan Platelet mean volume (Bld) [Entitic vol] 9.4 fL Critically low 9.5-13.5 [facility] Comment on above: Performed By: #### C BC ####[facility] Wbqxgebjbm2530 [place] [phone]. Anjali Reagan PLT 249 103/ul Normal 150-450 The [facility] Comment on above: Performed By: #### C BC ####[facility] Nsiukpyctx9179 [place] [phone]. Anjali Reagan RBC 4.37 106/ul Critically low 4.70-6.10 The [facility] Comment on above: Performed By: #### C BC ####[facility] Nuapzkbtoc8755 [place] [phone]. Anjali Reagan WBC 7.1 103/ul Normal 4.0-11.0 The [facility] Comment on above: Performed By: #### C BC ####[facility] Rsipqpxjis8790 [place] [address]Dr. Anjali Reagan CRPon 09-09-2021 CRP 1.9 mg/dL Critically high <=1.0 The [facility] Comment on above: Performed By: #### C RP, CMP ####[facility] Zmafemakpx5804 [place] [phone]. Anjali Reagan GRAM STAINon 09-09-2021 COMMENTS NO ORGANISMS OBSERVED Normal The [facility] Comment on above: Performed By: #### G STAIN ####[facility] Pzpphkkwtm9[address] [place] [address]Dr. Anjali Reagan DIPHTHEROIDS Normal The [facility] Comment on above: Performed By: #### G STAIN ####[facility] Zyumdxfmcl8[address] [place], [place] [address]Dr. Anjali Reagan EPITHELIALS Normal The [facility] Comment on above: Performed By: #### G STAIN ####[facility] Cwqhdqmzfv12[address] [place], [place] [address]Dr. Anjali Reagan FUNGAL ELEMENTS Normal The [facility] Comment on above: Performed By: #### G STAIN ####[facility] Ubbmkrixbt2887 [place] [address]Dr. Anjali Reagan GRAM NEG BACILLI Normal The [facility] Comment on above: Performed By: #### G STAIN ####[facility] Wzskblcumd2406 [place] [address]Dr. Anjali Reagan GRAM NEG DIPPLOCOCCI Normal The [facility] Comment on above: Performed By: #### G STAIN ####[facility] Uvufyggibh35[address] [place], [place] [address]Dr. Anjali Reagan GRAM POS BACILLI Normal The [facility] Comment on above: Performed By: #### G STAIN ####[facility] Rjfwxmyvuu[address] [place], [place] [address]Dr. Anjali Reagan GRAM POSITIVE COCCI Normal The [facility] Comment on above: Performed By: #### G STAIN ####[facility] Tdudjgycpa6384 [place] [address]Dr. Anjali Reagan GRAM STAIN SOURCE Left foot lateral Normal [facility] Comment on above: Performed By: #### G STAIN ####[facility] Wauaernncg26[address] [place] [address]Dr. Anjali Reagan GS_DIPTH Normal [facility] Comment on above: Performed By: #### G STAIN ####[facility] Fjewhluake58[address] [place] [address]Dr. Anjali Reagan WBC RARE Normal [facility] Comment on above: Performed By: #### G STAIN ####[facility] Yhcfaqnqzv0893 [place] [address]Dr. Anjali Reagan PROF 14(COMP METB)on 022 Albumin [Mass/Vol] 3.5 g/dL Normal 3.4-5.0 [facility] Comment on above: Performed By: #### C RP, CMP ####[facility] Owyhhmxnaq34[address] [place], [place] [address]Dr. Anjali Reagan Albumin/Globulin [Mass ratio] 0.8 {ratio} Normal [facility] Comment on above: Performed By: #### C RP, CMP ####[facility] Msuqpmzyvb5549 [place] [address]Dr. Anjali Reagan ALP [Catalytic activity/Vol] 136 U/L Critically high 46-116 [facility] Comment on above: Performed By: #### C RP, CMP ####[facility] Eafrvdvqvu1182 [place] [address]Dr. Anjali Reagan ALT [Catalytic activity/Vol] 34 U/L Normal 16-63 [facility] Comment on above: Performed By: #### C RP, CMP ####[facility] Kmmglgidte5914 [place] [address]Dr. Anjali Reagan Anion gap [Moles/Vol] 12.9 mmol/L Normal [facility] Comment on above: Performed By: #### C RP, CMP ####[facility] Zuftxonhdh8843 [place] [address]Dr. Anjali Reagan AST [Catalytic activity/Vol] 27 U/L Normal 15-37 The [facility] Comment on above: Performed By: #### C RP, CMP ####[facility] Dvlsntnhvn350[address] [place], [place] [address]Dr. Anjali Reagan Bilirubin [Mass/Vol] 0.4 mg/dL Normal 0.2-1.0 [facility] Comment on above: Performed By: #### C RP, CMP ####[facility] Wabqonryfn8[address] [place], [place] [address]Dr. Anjali Reagan Calcium [Mass/Vol] 9.7 mg/dL Normal 8.5-10.1 [facility] Comment on above: Performed By: #### C RP, CMP ####[facility] Dhlvvrkczw96[address] [place], [place] [address]Dr. Anjali Reagan Chloride [Moles/Vol] 103 mmol/L Normal 98-107 The [facility] Comment on above: Performed By: #### C RP, CMP ####[facility] Nzogbqgoik8267[address] [place], [place] [address]Dr. Anjali Reagan CO2 [Moles/Vol] 28.9 mmol/L Normal 21.0-32.0 The [facility] Comment on above: Performed By: #### C RP, CMP ####[facility] Zsqrgakael05[address] [place], [place] [address]Dr. Anjali Reagan Creatinine [Mass/Vol] 1.57 mg/dL Critically high 0.70-1.30 The [facility] Comment on above: Performed By: #### C RP, CMP ####[facility] Vkjupnwbto35[address] [place], [place] [address]Dr. Anjali Reagan EGFR-AF EAST [place] 54 mL/min/1.73m2 Critically low >=60 The [facility] Comment on above: Performed By: #### C RP, CMP ####[facility] Kuuiygrzbp0569[address] [place], [place] [address]Dr. Anjali Reagan EGFR-NON AF [place] 45 mL/min/1.73m2 Critically low >=60 The [facility] Comment on above: Performed By: #### C RP, CMP ####[facility] Hvfiktouol6486 [place] [phone]. Anjali Reagan Globulin (S) [Mass/Vol] 4.5 g/dL Normal [facility] Comment on above: Performed By: #### C RP, CMP ####[facility] Yixvkrhehu0205 [place] [phone]. Anjali Reagan Glucose [Mass/Vol] 174 mg/dL Critically high 74-106 [facility] Comment on above: Performed By: #### C RP, CMP ####[facility] Ldnicfdpxb1078 [place] [address]Dr. Anjali Reagan Potassium [Moles/Vol] 4.8 mmol/L Normal 3.5-5.1 [facility] Comment on above: Performed By: #### C RP, CMP ####[facility] Jkvqfykehw022[address] [place], [place] [address]Dr. Anjali Reagan Protein [Mass/Vol] 8.0 g/dL Normal 6.4-8.2 [facility] Comment on above: Performed By: #### C RP, CMP ####[facility] Bgepiopfya0[address] [place], [place] [address]Dr. Anjali Reagan Sodium [Moles/Vol] 140 mmol/L Normal 136-145 [facility] Comment on above: Performed By: #### C RP, CMP ####[facility] Zbigxsyxjq0588[address] [place], [place] [address]Dr. Anjali Reagan Urea nitrogen [Mass/Vol] 34.0 mg/dL Critically high 7.0-18 .0 [facility] Comment on above: Performed By: #### C RP, CMP ####[facility] Xcvmzjbycw[address] [place], [place] [address]Dr. Anjali Reagan Urea nitrogen/Creatinine [Mass ratio] 21.7 mg/mg Normal [facility] Comment on above: Performed By: #### C RP, CMP ####[facility] Dospyzlxqz0830[address] [place], [place] [address]Dr. Anjali Reagan XR FOOT RT MIN 3 VIEWSon XR FOOT RT MIN 3 VIEWS Normal Th e [facility] XR ANKLE RT MIN 3 VIEWSon XR ANKLE RT MIN 3 VIEWS Normal T he [facility] CULTURE BLOODon 08-26-2021 Microscopic examination of blood, culture Culture Observations: NO GROWTH AT 5 DAYS. Normal The [facility] Comment on above: Performed By: #### B LDCX2 ####[facility] Abygqpliyc99[address] [place], [place] [address]Dr. Anjali Reagan Microscopic examination of blood, culture Culture Observations: NO GROWTH AT 5 DAYS. Normal The [facility] Comment on above: Performed By: #### B LDCX1 ####[facility] Icowymruob[address] [place] [address]Dr. Anjali Reagan PREALBUMINon 08-26-2021 Prealbumin [Mass/Vol] 14 mg/dL Normal 10-36 [facility] Comment on above: Performed By: #### P REALBL ####[facility] Omyciqybrc[address] [place], [place] [address]Dr. Anjali Reagan CBC W MANUAL DIFFon 08-25-19 22 ANISOCYTOSIS SLIGHT Normal [facility] Comment on above: Performed By: #### C SAUMYAMAN ####[facility] Mywmplchlj64[address] [place], [place] [address]Dr. Anjali Reagan ATYPICAL LYMPH # Normal [facility] Comment on above: Performed By: #### C BCMAN ####[facility] Rndwdmjmqj8633 [place] [address]Dr. Anjali Reagan ATYPICAL LYMPH % Normal The [facility] Comment on above: Performed By: #### C BCMAN ####[facility] Jrssaarjkf2938 [place] [address]Dr. Anjali Reagan BAND # Normal 0.0-0.3 [facility] Comment on above: Performed By: #### C BCMAN ####[facility] Pjtyztywag[address] [place], [place] [address]Dr. Anjali Reagan BAND % Normal 0-5 The [facility] Comment on above: Performed By: #### C BCMAN ####[facility] Qaiervbiwr45[address] [place], [place] [address]Dr. Anjali Reagan BASOM # 0.00 103/ul Normal 0.00-0.10 The [facility] Comment on above: Performed By: #### C BCMAN ####[facility] Yorybreeiv2760 [place] [address]Dr. Anjali Reagan BASOM % 0.0 % Critically low 0.2-2.0 The [facility] Comment on above: Performed By: #### C BCMAN ####[facility] Alzmosbour9610 [place] [address]Dr. Anjali Reagan BLAST # Normal [facility] Comment on above: Performed By: #### C BCFIONA ####[facility] Cdlbflbuap97[address] [place], [place] [address]Dr. Anjali Reagan BLAST % Normal The [facility] Comment on above: Performed By: #### C BCFIONA ####[facility] Lgvenwuyup32[address] [place], [place] [address]Dr. Anjali Reagan CORRECTED WBC Normal 4.0-11.0 The [facility] Comment on above: Performed By: #### C BCFIONA ####[facility] Yidtgiwzti68[address] [place], [place] [address]Dr. Anjali Reagan EOS # 0.34 103/ul Normal 0.00-0.70 The [facility] Comment on above: Performed By: #### C BCFIONA ####[facility] Dlcurfkfhz85[address] [place], [place] [address]Dr. Anjali Reagan EOS% 3.0 % Normal 0.9-7.0 The [facility] Comment on above: Performed By: #### C BCMAN ####[facility] Nrmriixzhx84[address] [place], [place] [address]Dr. Anjali Reagan HCT 36.2 % Critically low 42.0-54.0 The [facility] Comment on above: Performed By: #### C BCMAN ####[facility] Umpvodpmvn18[address] [place], [place] [address]Dr. Anjali Reagan HGB 11.8 g/dl Critically low 14.0-18.0 The [facility] Comment on above: Performed By: #### C BCFIONA ####[facility] Nhprbwvspy4404 [place], [place] [address]Gv. Anjali Reagan LYMPHM # 1.03 103/ul Critically low 1.20-3.80 The [facility] Comment on above: Performed By: #### C CORI ####[facility] Rkeqczxaxj9268 [place], [place] [address]Hf. Anjali Reagan LYMPHM% 9.0 % Critically low 20.5-60.0 The [facility] Comment on above: Performed By: #### C CORI ####[facility] Cgpiwfopus6538 [place], [place] [address]Nl. Anjali Reagan MCH 28.0 pg Normal 25.9-34.0 The [facility] Comment on above: Performed By: #### C CORI ####[facility] Lergqxnwor1320 [place], [place] [address]Yz. Anjali Reagan MCHC 32.6 g/dl Normal 29.9-35.2 The [facility] Comment on above: Performed By: #### C CORI ####[facility] Gvinuuzzry2904 [place] [id number]. Anjali Reagan MCV 85.8 fL Normal 80.0-94.0 The [facility] Comment on above: Performed By: #### C CORI ####[facility] Uljejsatyv1036 [place], [place] [address]Ek. Anjali Reagan METAMYELOCYTE # Normal [facility] Comment on above: Performed By: #### C CORI ####[facility] Zvrewruuuq5817 [place], [place] [address]Xg. Anjali Reagan METAMYELOCYTE % Normal [facility] Comment on above: Performed By: #### C CORI ####[facility] Rxyyeumnxc7367 [place], [place] [address]Uw. Anjali Reagan MONOM# 1.61 103/ul Critically high 0.30-0.80 The [facility] Comment on above: Performed By: #### C CORI ####[facility] Sssohbnrax8120 [place], [place] [address]Qq. Anjali Reagan MONOM% 14.0 % Critically high 1.7-12.0 [facility] Comment on above: Performed By: #### C CORI ####[facility] Pudcyilpjy4346 [place] [id number]. Anjail Reagan MPV 8.9 fL Critically low 9.5-13.5 [facility] Comment on above: Performed By: #### C CORI ####[facility] Rmclhuhnyz6306 [place] [id number]. Anjali Reagan MYELOCYTE # Normal The [facility] Comment on above: Performed By: #### C CORI ####[facility] Kvclanhrpc0330 [place], [place] [address]Yk. Anjali Reagan MYELOCYTE % Normal The [facility] Comment on above: Performed By: #### C CORI ####[facility] Ukfeyrmtxb8705 [place] [id number]. Anjali Reagan NRBC Normal [facility] Comment on above: Performed By: #### C CORI ####[facility] Xrxbecgvpo7599 [place] [id number]. Anjali Reagan PLT 263 103/ul Normal 150-450 The [facility] Comment on above: Performed By: #### C CORI ####[facility] Itsesyvdmf5109 [place] [id number]. Anjali Reagan RBC 4.22 106/ul Critically low 4.70-6.10 The [facility] Comment on above: Performed By: #### C CORI ####[facility] Tljetrihqj0185 [place] [id number]. Anjali Reagan RDW 16.0 % Critically high 11.0-15.0 [facility] Comment on above: Performed By: #### C CORI ####[facility] Ocdcnqtupd7337 [place] [id number]. Anjali Reagan SEG # 8.51 103/ul Critically high 1.40-6.50 The [facility] Comment on above: Performed By: #### C CORI ####[facility] Udyzsbywhd6242 [place] [id number]. Anjali Reagan SEG % 74.0 % Normal 43.0-75.0 [facility] Comment on above: Performed By: #### C BCMAN ####[facility] Dpqjovvubi9134 [place] [address]Dr. Anjali Reagan WBC 11.5 103/ul Critically high 4.0-11.0 [facility] Comment on above: Performed By: #### C BCMAN ####[facility] Cgsbrglmgi0740 [place] [address]Dr. Anjali Reagan CRPon 08-24-2021 CRP 11.6 mg/dL Critically high <=1.0 [facility] Comment on above: Performed By: #### C RP, CMP ####[facility] Nnwxhgnjes2469[address] [place], [place] [address]Dr. Anjali Reagan PROF 14(COMP METB)on 022 Albumin [Mass/Vol] 3.2 g/dL Critically low 3.4-5.0 [facility] Comment on above: Performed By: #### C RP, CMP ####[facility] Nycvkaevaw3[address] [place], [place] [address]Dr. Anjali Reagan Albumin/Globulin [Mass ratio] 0.7 {ratio} Normal [facility] Comment on above: Performed By: #### C RP, CMP ####[facility] Pppvycpuqu[address] [place], [place] [address]Dr. Anjali Reagan ALP [Catalytic activity/Vol] 107 U/L Normal 46-116 [facility] Comment on above: Performed By: #### C RP, CMP ####[facility] Aciwypaboo2662 [place] [address]Dr. Anjali Reagan ALT [Catalytic activity/Vol] 57 U/L Normal 16-63 [facility] Comment on above: Performed By: #### C RP, CMP ####[facility] Xievquapih0781 [place] [address]Dr. Anjali Reagan Anion gap [Moles/Vol] 13.7 mmol/L Normal [facility] Comment on above: Performed By: #### C RP, CMP ####[facility] Xxdtfcwvdf54[address] [place], [place] [address]Dr. Anjali Reagan AST [Catalytic activity/Vol] 40 U/L Critically high 15-37 The [facility] Comment on above: Performed By: #### C RP, CMP ####[facility] Uqylvmqefu7807 [place] [address]Dr. Anjali Reagan Bilirubin [Mass/Vol] 0.6 mg/dL Normal 0.2-1.0 [facility] Comment on above: Performed By: #### C RP, CMP ####[facility] Dtjqriojlq2067[address] [place], [place] [address]Dr. Anjali Reagan Calcium [Mass/Vol] 9.7 mg/dL Normal 8.5-10.1 [facility] Comment on above: Performed By: #### C RP, CMP ####[facility] Rbuucbcsgy99[address] [place], [place] [address]Dr. Anjali Reagan Chloride [Moles/Vol] 98 mmol/L Normal 98-107 [facility] Comment on above: Performed By: #### C RP, CMP ####[facility] Qnvbtullot3699[address] [place], [place] [address]Dr. Anjali Reagan CO2 [Moles/Vol] 30.0 mmol/L Normal 21.0-32.0 The [facility] Comment on above: Performed By: #### C RP, CMP ####[facility] Yxvcrnnikx0[address] [place], [place] [address]Dr. Anjali Reagan Creatinine [Mass/Vol] 1.73 mg/dL Critically high 0.70-1.30 The [facility] Comment on above: Performed By: #### C RP, CMP ####[facility] Lsfzenbust58[address] [place], [place] [address]Dr. Anjali Reagan EGFR-AF E[place] 49 mL/min/1.73m2 Critically low >=60 The [facility] Comment on above: Performed By: #### C RP, CMP ####[facility] Xpyvkepkvo68[address] [place], [place] [address]Dr. Anjali Reagan EGFR-NON AF [place] 40 mL/min/1.73m2 Critically low >=60 The [facility] Comment on above: Performed By: #### C RP, CMP ####[facility] Dwmcloqdza8573 [place] [id number]. Anjali Reagan Globulin (S) [Mass/Vol] 4.7 g/dL Normal [facility] Comment on above: Performed By: #### C RP, CMP ####[facility] Ltodkfxspy1574 [place] [id number]. Anjali Reagan Glucose [Mass/Vol] 92 mg/dL Normal 74-106 The [facility] Comment on above: Performed By: #### C RP, CMP ####[facility] Xfeeyfywbf4402 [place] [address]Dr. Anjali Reagan Potassium [Moles/Vol] 3.7 mmol/L Normal 3.5-5.1 [facility] Comment on above: Performed By: #### C RP, CMP ####[facility] Ppdugillcx[address] [place], [place] [address]Dr. Anjali Reagan Protein [Mass/Vol] 7.9 g/dL Normal 6.4-8.2 [facility] Comment on above: Performed By: #### C RP, CMP ####[facility] Slrolvnjsw6[address] [place], [place] [address]Dr. Anjali Reagan Sodium [Moles/Vol] 138 mmol/L Normal 136-145 [facility] Comment on above: Performed By: #### C RP, CMP ####[facility] Bfgmyvdxrs[address] [place], [place] [address]Dr. Anjali Reagan Urea nitrogen [Mass/Vol] 50.0 mg/dL Critically high 7.0-18 .0 [facility] Comment on above: Performed By: #### C RP, CMP ####[facility] Xgnjsrgkty[address] [place], [place] [address]Dr. Anjali Reagan Urea nitrogen/Creatinine [Mass ratio] 28.9 mg/mg Normal [facility] Comment on above: Performed By: #### C RP, CMP ####[facility] Sgjvmgjulb0616 [place] [address]Dr. Anjali Reagan SED RATE [facility] 2021 SED RATE 17 mm/hr Normal <=20 [facility] Comment on above: Performed By: #### S EDR ####[facility] Wpksmuwuww7650 [place], [place] [address]UxVeronica Reagan CBC (INCLUDES DIFF/PLT)on Basophils (Bld) [#/Vol] 0.034 10*3/uL Normal 0-200 [facility] Comment on above: Performed By: #### 6 399, 496, 718, 01711 #### [facility] [place] [address] [employer] Operator: Juan Meraz MD Basophils/100 WBC (Bld) 0.3 % Normal [facility] Comment on above: Performed By: #### 6 399, 496, 718, 53575 #### [facility] [place] [address] [employer] [employer] Operator: Juan Meraz MD Eosinophils (Bld) [#/Vol] 0.023 10*3/uL Normal 15-500 [facility] Comment on above: Performed By: #### 6 399, 496, 718, 36627 #### [facility] [place] [address] [employer] Operator: Jaun Meraz MD Eosinophils/100 WBC (Bld) 0.2 % Normal [facility] Comment on above: Performed By: #### 6 399, 496, 718, 49793 #### [facility] [place] [address] [employer] Operator: Juan Meraz MD Erythrocyte distribution width (RBC) [Ratio] 15.6 % High 11.0-15.0 [facility] Comment on above: Performed By: #### 6 399, 496, 718, 11685 #### [facility] [place] [address] [employer]: Juan Meraz MD Hematocrit (Bld) [Volume fraction] 38.9 % Normal 38.5-50.0 [facility] Comment on above: Performed By: #### 6 399, 496, 718, 34099 #### [facility] [place] [address] [employer] Operator: Juan Meraz MD Hemoglobin (Bld) [Mass/Vol] 12.7 g/dL Low 13.2-17.1 [facility] Comment on above: Performed By: #### 6 399, 496, 718, 39425 #### [facility] [place] [address] [employer] [employer] Operator: Juan Meraz MD Lymphocytes (Bld) [#/Vol] 0.531 10*3/uL Low 850-3900 [facility] Comment on above: Performed By: #### 6 399, 496, 718, 68055 #### [facility] [place] [address] [employer] [employer] Operator: Juan Meraz MD Lymphocytes/100 WBC (Bld) 4.7 % Normal [facility] Comment on above: Performed By: #### 6 399, 496, 718, 19543 #### [facility] [place] [address] [address] [employer] Operator: Juan Meraz MD MCH (RBC) [Entitic mass] 28.2 pg Normal 27.0-33.0 [facility] Comment on above: Performed By: #### 6 399, 496, 718, 59494 #### [facility] [place] [address] [address] [employer] Operator: Juan Meraz MD MCHC (RBC) [Mass/Vol] 32.6 g/dL Normal 32.0-36.[address] [facility] Comment on above: Performed By: #### 6 399, 496, 718, 49988 #### [facility] [place] [address] [employer] [employer] Operator: Juan Meraz MD MCV (RBC) [Entitic vol] 86.4 fL Normal 80.0-100.0 [facility] Comment on above: Performed By: #### 6 399, 496, 718, 28628 #### [facility] [address], [address] [place] [address] [employer]: Juan Meraz MD Monocytes (Bld) [#/Vol] 1.119 10*3/uL High 200-950 [facility] Comment on above: Performed By: #### 6 399, 496, 718, 19449 #### [facility] [address], [address] [place] [address] [employer]: Juan Meraz MD Monocytes/100 WBC (Bld) 9.9 % Normal [facility] Comment on above: Performed By: #### 6 399, 496, 718, 32638 #### [facility] [place] [address] [address] [employer] Operator: Juan Meraz MD Neutrophils (Bld) [#/Vol] 9.594 10*3/uL High 5827-5098 [facility] Comment on above: Performed By: #### 6 399, 496, 718, 24053 #### [facility] [place] [address] [address] [employer] Operator: Juan Meraz MD Neutrophils/100 WBC (Bld) 84.9 % Normal [facility] Comment on above: Performed By: #### 6 399, 496, 718, 93166 #### [facility] [place] [address] [address] [employer] Operator: Juan Meraz MD Platelet mean volume (Bld) [Entitic vol] 10.1 fL Normal 7.5-12.5 [facility] Comment on above: Performed By: #### 6 399, 496, 718, 80158 #### [facility] [place] [address] [address] [employer] Operator: Juan Meraz MD Platelets (Bld) [#/Vol] 267 10*3/uL Normal 140-400 [facility] Comment on above: Performed By: #### 6 399, 496, 718, 92380 #### [facility] [address], [address] [place] [address] [employer]: Juan Meraz MD RBC (Bld) [#/Vol] 4.50 10*6/uL Normal 4.20-5.80 [facility] Comment on above: Performed By: #### 6 399, 496, 718, 16420 #### [facility] [address], [address] [place] [address] [employer]: Juan Meraz MD WBC (Bld) [#/Vol] 11.3 10*3/uL High 3.8-10.8 [facility] Comment on above: Performed By: #### 6 399, 496, 718, 99665 #### [facility] [address], [address] [place] [address] [employer]: Juan Meraz MD HEMOGLOBIN A1con 08-23-2021 HEMOGLOBIN [...] Performed By: #### 6 399, 496, 718, 63068 #### [facility] [address], [address] [place] [address] [employer]: Juan Meraz MD PHOSPHATE ( PHOSPHORUS)on 08-23-2021 Phosphate [Mass/Vol] 3.7 mg/dL Normal 2.5-4.5 [facility] Comment on above: Order Comment: PATIE NT UNABLE TO VOID; ADVISED TO RETURN FOR COLLECTION. Performed By: #### 6 399, 496, 718, 73145 #### [facility] [address], [address] [place], [place] [address] [employer] Operator: Juan Meraz MD PTH, INTACT WITHOUT CALCIUMo [...] Performed By: #### 6 399, 496, 718, 58425 #### [facility] [address], [address] [place] [address] [employer] Operator: Juan Meraz MD VITAMIN D,25-OH,TOTAL,IAon 0 08-23-2021 [...] D, (D2,D3), LC/MS/MS is recommended: order code 34486 (patients >2yrs). See Note 1 Note 1 For additional information, please refer to http://education.ClearEdge3D/faq/VKX263 (This link is being provided for informational/ educational purposes only.) Performed By: #### 6 399, 496, 718, 71997 #### [facility] [address], [address] [place] [address] [employer]: Juan Meraz MD CBC W MANUAL DIFFon 07-06-19 22 ATYPICAL LYMPH # Normal [facility] Comment on above: Performed By: #### C FIONA ####[facility] [address] [place] [address]DrVeronica Reagan ATYPICAL LYMPH % Normal [facility] Comment on above: Performed By: #### C BCFIONA ####[facility] [address]rihhgogrx55[address] [place] [id number]. Anjali Reagan BAND # 0.1 103/ul Normal 0.0-0.3 [facility] Comment on above: Performed By: #### C BCFIONA ####[facility] [address]rm[address]xyevf[address] [place] [address]Dr. Anjali Reagan BAND % 1 % Normal 0-5 [facility] Comment on above: Performed By: #### C BCFIONA ####[facility] Udynmnqqjk[address] [place] [address]Dr. Yiramona Reagan BASOM # 0.00 103/ul Normal 0.00-0.10 [facility] Comment on above: Performed By: #### C CORI ####[facility] [address]dlwfw[address] [place] [address]Dr. Anjali Reagan BASOM % 0.0 % Critically low 0.2-2.0 [facility] Comment on above: Performed By: #### C CORI ####[facility] [address]itwrxvs[address] [place] [address]Dr. Yiramona Reagan BLAST # Normal [facility] Comment on above: Performed By: #### C CORI ####[facility] [address]ooqjaybdy[address] [place] [address]Dr. Anjali Reagan BLAST % Normal [facility] Comment on above: Performed By: #### C CORI ####[facility] Luyvgstbdg5[address] [place] [address]Dr. Anjali Reagan CORRECTED WBC Normal 4.0-11.0 [facility] Comment on above: Performed By: #### C CORI ####[facility] [address] [place], [place] [address]Dr. Anjali Reagan EOS # 0.16 103/ul Normal 0.00-0.70 [facility] Comment on above: Performed By: #### C BCFIONA ####[facility] I[address]kcjx[address] [place], [place] [address]Dr. Anjali Reagan EOS% 2.0 % Normal 0.9-7.0 [facility] Comment on above: Performed By: #### C CORI ####[facility] [address]qczqacptu[address] [place] [id number]. Anjali Reagan HCT 35.3 % Critically low 42.0-54.0 [facility] Comment on above: Performed By: #### C CORI ####[facility] Drrfbdskii97[address] [place] [address]Dr. Anjali Reagan HGB 11.4 g/dl Critically low 14.0-18.0 [facility] Comment on above: Performed By: #### C CORI ####[facility] [address]ieyulgtv37[address] [place] [address]Dr. Anjali Reagan LYMPHM # 0.70 103/ul Critically low 1.20-3.80 [facility] Comment on above: Performed By: #### C CORI ####[facility] Wnacsyxgns7069 [place] [address]Dr. Anjali Reagan LYMPHM% 9.0 % Critically low 20.5-60.0 [facility] Comment on above: Performed By: #### C CORI ####[facility] Bdcwkhuvdy1538 [place] [address]Dr. Anjali Reagan MCH 27.5 pg Normal 25.9-34.0 [facility] Comment on above: Performed By: #### C CORI ####[facility] Nzqkccwbar4035 [place] [address]Dr. Anjali Reagan MCHC 32.3 g/dl Normal 29.9-35.2 [facility] Comment on above: Performed By: #### C CORI ####[facility] Icnxkobqby9109 [place] [address]Dr. Anjali Reagan MCV 85.3 fL Normal 80.0-94.0 [facility] Comment on above: Performed By: #### C CORI ####[facility] Czhzciueid3[address] [place] [address]Dr. Anjali Reagan METAMYELOCYTE # Normal [facility] Comment on above: Performed By: #### C CORI ####[facility] Rtrdcydeei4[address] [place], [place] [address]Bz. Anjali Reagan METAMYELOCYTE % Normal [facility] Comment on above: Performed By: #### C CORI ####[facility] Kybbrksvjk[address] [place] [id number]. Anjali Reagan MONOM# 1.09 103/ul Critically high 0.30-0.80 [facility] Comment on above: Performed By: #### C CORI ####[facility] Xpkemmfclk6873 [place] [address]Dr. Anjali Reagan MONOM% 14.0 % Critically high 1.7-12.0 [facility] Comment on above: Performed By: #### C CORI ####[facility] Syflounbbd6798 [place] [address]Dr. Anjali Reagan MPV 9.6 fL Normal 9.5-13.5 [facility] Comment on above: Performed By: #### C CORI ####[facility] Litcnzrscl3035 [place] [address]Dr. Anjali Reagan MYELOCYTE # Normal [facility] Comment on above: Performed By: #### C CORI ####[facility] Yonezqyuni2686 [place] [id number]. Anjali Reagan MYELOCYTE % Normal [facility] Comment on above: Performed By: #### C CORI ####[facility] Jwkwmrpyxy9229 [place] [address]Dr. Anjali Reagan NRBC Normal [facility] Comment on above: Performed By: #### C CORI ####[facility] Zlmsglpnjh4317 [place] [address]Dr. Anjali Reagan PLT 119 103/ul Critically low 150-450 The [facility] Comment on above: Performed By: #### C CORI ####[facility] Rbbtipicab2583 [place] [address]Dr. Anjali Reagan RBC 4.14 106/ul Critically low 4.70-6.10 [facility] Comment on above: Performed By: #### C CORI ####[facility] Mrrfbgkccz7622 [place], [place] [address]Yn. Anjali Reagan RDW 16.1 % Critically high 11.0-15.0 [facility] Comment on above: Performed By: #### C BCMAN ####[facility] Yvapyggsoc6168 [place], [place] [address]Ed. Anjali Reagan SEG # 5.77 103/ul Normal 1.40-6.50 [facility] Comment on above: Performed By: #### C BCMAN ####[facility] Awufzsohig6650 [place] [id number]. Anjali Reagan SEG % 74.0 % Normal 43.0-75.0 [facility] Comment on above: Performed By: #### C BCMAN ####[facility] Rymdjhmfmk3224 [place] [phone]. Anjali Tez WBC 7.8 103/ul Normal 4.0-11.0 [facility] Comment on above: Performed By: #### C BCMAN ####[facility] Cardodymue8472 [place] [phone]. Anjali Tez CRPon 07-05-2021 CRP [Mass/Vol] mg/L Critically high <=1.0 [facility] Comment on above: Performed By: #### C RP, BMP ####[facility] Vwatusvdai7102 [place] [id number]. Biancaramona Reagan PROF CHEM 8 (BAS METB)on Anion gap [Moles/Vol] 10.1 mmol/L Normal [facility] Comment on above: Performed By: #### C RP, BMP ####[facility] Aluasewztj3021 [place] [id number]. Anjali Tez Calcium [Mass/Vol] 9.6 mg/dL Normal 8.5-10.1 [facility] Comment on above: Performed By: #### C RP, BMP ####[facility] Vtvjwpiunm2400 [place] [phone]. Anjali Tez Chloride [Moles/Vol] 100 mmol/L Normal 98-107 [facility] Comment on above: Performed By: #### C RP, BMP ####[facility] Ihpznqlhqu8319 [place] [address]Dr. Anjali Reagan CO2 [Moles/Vol] 30.4 mmol/L Critically high 22.0-30.0 [facility] Comment on above: Performed By: #### C RP, BMP ####[facility] Dltroombdu8395 [place] [address]Dr. Anjali Reagan Creatinine [Mass/Vol] 1.49 mg/dL Critically high 0.66-1.25 [facility] Comment on above: Performed By: #### C RP, BMP ####[facility] Oerkyrgsix[address] [place], [place] [address]Dr. Anjali Reagan EGFR-AF EAST [place] 58 mL/min/1.73m2 Critically low >=60 [facility] Comment on above: Performed By: #### C RP, BMP ####[facility] Cufmbbbxhh[address] [place], [place] [address]Dr. Anjali Reagan EGFR-NON AF [place] 48 mL/min/1.73m2 Critically low >=60 [facility] Comment on above: Performed By: #### C RP, BMP ####[facility] Bngrbfseyn[address] [place], [place] [address]Dr. Anjali Reagan Glucose [Mass/Vol] 191 mg/dL Critically high 74-106 [facility] Comment on above: Performed By: #### C RP, BMP ####[facility] Feprifmmxs[address] [place], [place] [address]Dr. Anjali Reagan Potassium [Moles/Vol] 4.5 mmol/L Normal 3.4-5.0 [facility] Comment on above: Performed By: #### C RP, BMP ####[facility] Oopeslcqdf[address] [place], [place] [address]Dr. Anjali Reagan Sodium [Moles/Vol] 136 mmol/L Critically low 137-145 [facility] Comment on above: Performed By: #### C RP, BMP ####[facility] Bfmmqaafhm[address] [place], [place] [address]Dr. Anjali Reagan Urea nitrogen [Mass/Vol] 33.0 mg/dL Critically high 7.0-18 .0 [facility] Comment on above: Performed By: #### C RP, BMP ####[facility] Scjjbiudoz2855 [place] [id number]. Anjali Reagan Urea nitrogen/Creatinine [Mass ratio] 22.1 mg/mg Normal [facility] Comment on above: Performed By: #### C RP, BMP ####[facility] Mnpzjyuaus1941 [place] [phone]. Biancaramona Reagan SED RATE [facility] CLINICRENon 2021 SED RATE 26 mm/hr Critically high <=20 [facility] Comment on above: Performed By: #### S EDR ####[facility] Aafeisluns[address] [place] [address]Dr. Biancaramona Reagan XR ANKLE RT MIN 3 VIEWSon XR ANKLE RT MIN 3 VIEWS Normal T [facility] CT ANKLE RT WO CONon 022 CT ANKLE RT WO CON Normal [facility] CULTURE OTHERon 05-19-2021 CULTURE OTHER Normal [facility] Comment on above: Performed By: #### O THCX ####[facility] [address]wzbaboo[address] [place], [place] [address]Dr. Anjali Reagan CULTURE ANAEROBICon 05-16-19 22 CULTURE ANAEROBIC Specimen Comments: RIGHT FOOT ABSCESS Culture Observations: NO GROWTH OF ANAEROBES AT 72 HOURS. Normal [facility] Comment on above: Performed By: #### A NACX ####[facility] Jgtlcgrgvg8927 [place] [address]Dr. Anjali Reagan GRAM STAINon 05-16-2021 DIPHTHEROIDS Normal [facility] Comment on above: Performed By: #### G STAIN ####[facility] S[address]veafrvdt[address] [place], [place] [address]Dr. Anjali Reagan EPITHELIALS Normal [facility] Comment on above: Performed By: #### G STAIN ####[facility] Imtkcwfuqz[address] [place], [place] [address]Dr. Anjali Reagan FUNGAL ELEMENTS Normal [facility] Comment on above: Performed By: #### G STAIN ####[facility] Llrdhdzkkr8870 [place] [address]Dr. Anjali Reagan GRAM NEG BACILLI MANY Normal [facility] Comment on above: Performed By: #### G STAIN ####[facility] Zubkeldjyq19[address] [place] [address]Dr. Anjali Reagan GRAM NEG DIPPLOCOCCI Normal [facility] Comment on above: Performed By: #### G STAIN ####[facility] Pkpdvtxtgr0386 [place] [address]Dr. Anjali Reagan GRAM POS BACILLI Normal [facility] Comment on above: Performed By: #### G STAIN ####[facility] Qgiiztqduc0756 [place] [address]Dr. Anjali Reagan GRAM POSITIVE COCCI Normal The [facility] Comment on above: Performed By: #### G STAIN ####[facility] Woonarkkxz5[address] [place] [address]Dr. Anjali Reagan GRAM STAIN SOURCE RIGHT FOOT Normal The [facility] Comment on above: Performed By: #### G STAIN ####[facility] Bxgwtbhtgw3434 [place] [address]Dr. Anjali Reagan GS_DIPTH Normal [facility] Comment on above: Performed By: #### G STAIN ####[facility] Fuqyfnefhp8368 [place] [address]Dr. Anjali Reagan WBC MANY Normal [facility] Comment on above: Performed By: #### G STAIN ####[facility] [address]ms[address]zztq[address] [place], [place] [address]Dr. Anjali Reagan XR ANKLE RT MIN 3 VIEWSon XR ANKLE RT MIN 3 VIEWS Normal [facility] COMPREHENSIVE METABOLIC PANE Ray 04-16-2021 Albumin [Mass/Vol] 4.6 g/dL Normal 3.6-5.1 [facility] Comment on above: Performed By: #### 7 600, 496, 98334 #### [facility] [address] [place] [address], [address] [place] [address] [employer]: Juan Meraz MD Albumin/Globulin [Mass ratio] 1.7 {ratio} Normal 1.0-2.5 [facility] Comment on above: Performed By: #### 7 600, 496, 64583 #### [facility] [place] [address] [address] [employer] Operator: Juan Meraz MD ALP [Catalytic activity/Vol] 119 U/L Normal 35-144 [facility] Comment on above: Performed By: #### 7 600, 496, 19157 #### [facility] [place] [address] [address] [employer] Operator: Juan Meraz MD ALT [Catalytic activity/Vol] 19 U/L Normal 9-46 [facility] Comment on above: Performed By: #### 7 600, 496, 09258 #### [facility] [place] [address] [employer] [employer] Operator: Juan Meraz MD AST [Catalytic activity/Vol] 20 U/L Normal 10-35 [facility] Comment on above: Performed By: #### 7 600, 496, 84467 #### [facility] [place] [address] [address] [employer] Operator: Juan Meraz MD Bilirubin [Mass/Vol] 0.6 mg/dL Normal 0.2-1.2 [facility] Comment on above: Performed By: #### 7 600, 496, 53837 #### [facility] [place] [address] [address] [employer] Operator: Juan Meraz MD Calcium [Mass/Vol] 9.9 mg/dL Normal 8.6-10.3 [facility] Comment on above: Performed By: #### 7 600, 496, 55359 #### [facility] [place] [address] [address] [employer] Operator: Juan Meraz MD Chloride [Moles/Vol] 102 mmol/L Normal 98-110 [facility] Comment on above: Performed By: #### 7 600, 496, 61118 #### [facility] [address], [address] [place] [address] [employer]: Juan Meraz MD CO2 [Moles/Vol] 28 mmol/L Normal 20-32 [facility] Comment on above: Performed By: #### 7 600, 496, 09101 #### [facility] [place] [address] [employer] [employer] Operator: Juan Meraz MD Creatinine [Mass/Vol] 1.59 mg/dL High 0.70-1.[address] [facility] Comment on above: Result Comment: For patients >49 years of age, the reference limit for Creatinine is approximately 13% higher for people identified as -Ethiopian. Performed By: #### 7 600, 496, 17667 #### [facility] [place] [address] [employer] [employer] Operator: Juan Meraz MD eGFR NON-AFR. [place] 46 mL/min/1.73m2 Low > OR = 60 [facility] Comment on above: Performed By: #### 7 600, 496, 14329 #### [facility] [place] [address] [employer] [employer] Operator: Juan Meraz MD GFR/1.73 sq M.predicted among blacks MDRD (S/P/Bld) [Vol rate/Area] 53 mL/min/{1.73_m2} Low > OR = 60 [facility] Comment on above: Performed By: #### 7 600, 496, 60388 #### [facility] [place] [address] [employer] [employer] Operator: Juan Meraz MD Globulin (S) [Mass/Vol] 2.7 g/dL Normal 1.9-3.7 [facility] Comment on above: Performed By: #### 7 600, 496, 20945 #### [facility] [place] [address] [employer] [employer] Operator: Juan Meraz MD Glucose [Mass/Vol] 176 mg/dL High 65-139 [facility] Comment on above: Result Comment: Non-fasting reference interval For someone without known diabetes, a glucose value >125 mg/dL indicates that they may have diabetes and this should be confirmed with a follow-up test. Performed By: #### 7 600, 496, 68885 #### [facility] [place] [address] [employer] Operator: Juan Meraz MD Potassium [Moles/Vol] 4.2 mmol/L Normal 3.5-5.[address] [facility] [address] [facility] Comment on above: Performed By: #### 7 600, 496, 16181 #### [facility] [place] [address] [employer] Operator: Juan Meraz MD Protein [Mass/Vol] 7.3 g/dL Normal 6.1-8.1 [facility] Comment on above: Performed By: #### 7 600, 496, 55743 #### [facility] [place] [address] [employer] Operator: Juan Meraz MD Sodium [Moles/Vol] 138 mmol/L Normal 135-146 [facility] Comment on above: Performed By: #### 7 600, 496, 21529 #### [facility] [place] [address] [employer] Operator: Juan Meraz MD Urea nitrogen [Mass/Vol] 48 mg/dL High 7- [facility] Comment on above: Performed By: #### 7 600, 496, 98422 #### [facility] [place] [address] [employer] Operator: Juan Meraz MD Urea nitrogen/Creatinine [Mass ratio] 30 mg/mg High 6- [facility] Comment on above: Performed By: #### 7 600, 496, 99444 #### [facility] [place] [address] [employer] Operator: Juan Meraz MD HEMOGLOBIN A1con 04-16-2021 HEMOGLOBIN [...] 1 0165, 496, 905 #### [facility] [address], [address] [place] [address] [employer]: Juan Meraz MD LIPID PANEL, [facility] 04-02 Cholesterol [Mass/Vol] 108 mg/dL Normal <200 [facility] Comment on above: Order Comment: FASTI NG:NO FASTING: NO Performed By: #### 7 600, 496, 60682 #### [facility] [address], [address] [place] [address] [employer]: Juan Meraz MD Cholesterol in HDL [Mass/Vol] 47 mg/dL Normal > OR = 40 [facility] Comment on above: Order Comment: FASTI NG:NO FASTING: NO Performed By: #### 7 600, 496, 32419 #### [facility] [address], [address] [place] [address] [employer]: Juan Meraz MD Cholesterol in LDL [Mass/Vol] [...] LDL-C. [place] BAH et al. TABITHA. 2013;310(19): 3575-0467 (http://education.Comply365.Priceonomics/faq/KJA341) Performed By: #### 7 600, 496, 64438 #### [facility] [address], [address] [place] [address] [employer]: Juan Meraz MD Cholesterol.total/Choles terol in HDL [Mass ratio] 2.3 {ratio} Normal <5.0 [facility] Comment on above: Order Comment: FASTI NG:NO FASTING: NO Performed By: #### 7 600, 496, 00694 #### [facility] [address], [address] [place] [address] [employer]: Juan Meraz MD NON HDL CHOLESTEROL 61 mg/dL (calc) Normal <130 [facility] Comment on above: Order Comment: FASTI NG:NO FASTING: NO Result Comment: For patients with diabetes plus 1 major ASCVD risk factor, treating to a non-HDL-C goal of <100 mg/dL (LDL-C of <70 mg/dL) is considered a therapeutic option. Performed By: #### 7 600, 496, 28864 #### [facility] [address], [address] [place] [address] [employer]: Juan Meraz MD Triglyceride [Mass/Vol] 102 mg/dL Normal <150 [facility] Comment on above: Order Comment: FASTI NG:NO FASTING: NO Performed By: #### 7 600, 496, 22890 #### [facility] [address], [address] [place] [address] [employer] Operator: Juan Meraz MD CT ANKLE RT WO CONon 022 CT ANKLE RT WO CON Normal [facility] XR ANKLE RT MIN 3 VIEWSon XR ANKLE RT MIN 3 VIEWS Normal T [facility] ACID FAST SMEAR AND CXon Acid Fast Culture Negative Normal The [facility] Comment on above: Result Comment: No a rj fast bacilli isolated after 6 weeks. Performed By: #### A FB ####[facility] Usagkjdlzg9[address] [place] [id number] Reaagn Acid Fast Smear Negative Normal [facility] Comment on above: Performed By: #### A FB ####[facility] Raxkkrtoux[address] [place], [place] [address]Nj. Anjali [employer] Specimen Processing Direct Inoculation Normal [facility] Comment on above: Performed By: #### A FB ####[facility] Dppojudcrd4975 [place], [place] [address]Tk. Anjali Reagan ACID FAST SMEAR AND CXon Acid Fast Culture Negative Normal [facility] Comment on above: Result Comment: No a rj fast bacilli isolated after 6 weeks. Performed By: #### A FB ####[facility] [address] [place] [id number]. Anjali Reagan Acid Fast Smear Negative [facility] Comment on above: Performed By: #### A FB ####[facility] Lqdsomluoz[address] [place], [place] [address]Dr. Anjali [employer] Specimen Processing Tissue Grinding [facility] Comment on above: Performed By: #### A FB ####[facility] Ggvqrfntsp[address] [place], [place] [address]Dr. Anjali [employer] Specimen Processing Direct Inoculation [facility] Comment on above: Performed By: #### A FB ####[facility] Mnbnbpueoa[address] [place], [place] [address]Dr. Anjali Tez FUNGAL CULTUREon 03-15-2021 Fungus (Mycology) Culture Final report Normal [facility] Comment on above: Performed By: #### C XFUN ####[facility] Lwxkmdgpfx[address] [place], [place] [id number]. Anjali Reagan Fungus Stain Final report Normal The [facility] Comment on above: Performed By: #### C XFUN ####[facility] Nilanrbaqn[address] [place], [place] [address]Dr. Anjali Reagan Result 1 Comment Normal The [facility] Comment on above: Result Comment: MIRIAN/ Calcofluor preparation: no fungus observed. Performed By: #### C XFUN ####[facility] Ninkjznwhp[address] [place], [place] [address]Dr. Anjali Reagan Result Comment: No y east or mold isolated after 4 weeks. FUNGAL CULTUREon 03-09-2021 Fungus (Mycology) Culture Final report Normal [facility] Comment on above: Performed By: #### C XFUN ####[facility] Jyswhrbzxy0956 [place], [place] [address]As. Anjali Reagan Fungus Stain Final report Normal [facility] Comment on above: Performed By: #### C XFUN ####[facility] Nfgdwnzcue5963 [place], [place] [address]Lr. Anjali Reagan Result 1 Comment Normal [facility] Comment on above: Result Comment: MIRIAN/ Calcofluor preparation: no fungus observed. Performed By: #### C XFUN ####[facility] Zdffwbsmnd0413 [place], [place] [address]Sh. Anjali Reagan Result Comment: No y east or mold isolated after 4 weeks. XR ANKLE RT MIN 3 VIEWSon XR ANKLE RT MIN 3 VIEWS Normal T he [facility] Otolaryngology Office/Clinic Noteon 02-28-2021 Otolaryngology Office/Clinic Note [...] time. They were unable to travel to [place] as he required another right ankle surgery. [...] Dr. Freed. Previous pathology by physician in [place] about 1 year ago. PMHx of multiple [...] postauricular m (more content not included)... Normal [facility] CBC W MANUAL DIFFon 02-13-20 21 ATYPICAL LYMPH # Normal The [facility] Comment on above: Performed By: #### C CORI ####[facility] Liyqsdqbbz13[address] [place] [id number]. Biancalan Reagan ATYPICAL LYMPH % Normal [facility] Comment on above: Performed By: #### C CORI ####[facility] Vtzrubbfed3363 [place] [phone]. Yilan Reagan BAND # 0.3 103/ul Normal 0.0-0.3 The [facility] Comment on above: Performed By: #### C CORI ####[facility] Vfcpvtplbx9150 [place] [phone]. Yilan Reagan BAND % 4 % Normal 0-5 The [facility] Comment on above: Performed By: #### C BCMAN ####[facility] Zuayxogoqs1245 [place] [phone]. Anjali Reagan BASOM # 0.00 103/ul Normal 0.00-0.10 The [facility] Comment on above: Performed By: #### C BCFIONA ####[facility] Lwaansaolm5068 [place] [phone]. Anjali Reagan BASOM % 0.0 % Critically low 0.2-2.0 The [facility] Comment on above: Performed By: #### C BCMAN ####[facility] Elvlxynxoh[address] [place] [address]Dr. Anjali Reagan BLAST # Normal [facility] Comment on above: Performed By: #### C BCFIONA ####[facility] Umhgpdrujv38[address] [place] [address]Dr. Anjali Reagan BLAST % Normal The [facility] Comment on above: Performed By: #### C CORI ####[facility] Zekdkbrxsz1867 [place] [address]Dr. Anjali Reagan CORRECTED WBC Normal 4.0-11.0 The [facility] Comment on above: Performed By: #### C BCFIONA ####[facility] Bnfsemjmie34[address] [place], [place] [address]Dr. Anjali Reagan EOS # 0.28 103/ul Normal 0.00-0.70 The [facility] Comment on above: Performed By: #### C BCFIONA ####[facility] Rtvpssiznq9854 [place] [address]Dr. Anjali Reagan EOS% 4.0 % Normal 0.9-7.0 The [facility] Comment on above: Performed By: #### C BCFIONA ####[facility] Unfwmtbspy6[address] [place] [address]Dr. Anjali Reagan HCT 28.5 % Critically low 42.0-54.0 The [facility] Comment on above: Performed By: #### C CORI ####[facility] Sygwpyseqf[address] [place], [place] [address]Dr. Anjali Reagan HGB 8.6 g/dl Critically low 14.0-18.0 The [facility] Comment on above: Performed By: #### C CORI ####[facility] Ndmhavdtpm2690 [place] [phone]. Anjali Reagan HYPOCHROMASIA 3+ Normal The [facility] Comment on above: Performed By: #### C CORI ####[facility] Auincyezyk8229 [place] [phone]. Anjali Reagan LYMPHM # 0.57 103/ul Critically low 1.20-3.80 The [facility] Comment on above: Performed By: #### C CORI ####[facility] Yqgocdmlsc2538 [place] [phone]. Anjali Reagan LYMPHM% 8.0 % Critically low 20.5-60.0 [facility] Comment on above: Performed By: #### C CORI ####[facility] Emydmjzwvu9993 [place] [phone]. Anjali Reagan MCH 25.4 pg Critically low 25.9-34.0 [facility] Comment on above: Performed By: #### C CORI ####[facility] Xvqkatjtge[address] [place], [place] [address]Dr. Anjali Reagan MCHC 30.2 g/dl Normal 29.9-35.2 [facility] Comment on above: Performed By: #### C CORI ####[facility] Jveugnoquj6286 [place] [phone]. Anajli Reagan MCV 84.1 fL Normal 80.0-94.0 The [facility] Comment on above: Performed By: #### C CORI ####[facility] Vfgdoqbzqa2684 [place] [phone]. Anjali Reagan METAMYELOCYTE # Normal The [facility] Comment on above: Performed By: #### C CORI ####[facility] Hdcrccuyeg3296 [place] [phone]. Anjali Reagan METAMYELOCYTE % Normal The [facility] Comment on above: Performed By: #### C CORI ####[facility] Yshrwlgopg9685 [place] [phone]. Anjali Reagan MICROCYTOSIS 2+ Normal The [facility] Comment on above: Performed By: #### C CORI ####[facility] Kbxtsmgwhr4878 [place] [phone]. Anjali Reagan MONOM# 0.14 103/ul Critically low 0.30-0.80 The [facility] Comment on above: Performed By: #### C CORI ####[facility] Knclauuzcs22[address] [place] [phone]. Anjali Reagan MONOM% 2.0 % Normal 1.7-12.0 [facility] Comment on above: Performed By: #### C CORI ####[facility] Itrpnhczmw2[address] [place] [address]Dr. Anjali Reagan MPV 9.3 fL Critically low 9.5-13.5 [facility] Comment on above: Performed By: #### C CORI ####[facility] Rfsywirwou9[address] [place] [address]Dr. Anjali Reagan MYELOCYTE # Normal [facility] Comment on above: Performed By: #### C CORI ####[facility] Bubrgohdli3243 [place] [phone]. Anjali Reagan MYELOCYTE % Normal The [facility] Comment on above: Performed By: #### C CORI ####[facility] Kzixsbloro87[address] [place] [address]Dr. Anjali Reagan NRBC 1 Normal The [facility] Comment on above: Performed By: #### C CORI ####[facility] Qwyilnpvkd4159 [place] [phone]. Anjali Reagan PLT 186 103/ul Normal 150-450 The [facility] Comment on above: Performed By: #### C CORI ####[facility] Cyvwuicoxf0330 [place] [phone]. Anjali Reagan RBC 3.39 106/ul Critically low 4.70-6.10 The [facility] Comment on above: Performed By: #### C BCMAN ####[facility] Opagjpyvde9173 [place], [place] [address]Fs. Biancaramona Tez RDW 18.8 % Critically high 11.0-15.0 [facility] Comment on above: Performed By: #### C SAUMYAMAN ####[facility] Zqqxgbexxr9032 [place], [place] [address]Tz. Biancaramona Reagan SEG # 5.82 103/ul Normal 1.40-6.50 [facility] Comment on above: Performed By: #### C BCMAN ####[facility] Owqzesakgc3490 [place] [phone]. Anjali Reagan SEG % 82.0 % Critically high 43.0-75.0 [facility] Comment on above: Performed By: #### C CORI ####[facility] Lixosrlccf6537 [place] [phone]. Anjali Reagan WBC 7.1 103/ul Normal 4.0-11.0 [facility] Comment on above: Performed By: #### C CORI ####[facility] Xrncbhrnht8397 [place] [phone]. Anjali Reagan POINT OF CARE GLUCOSEon 01-31 Glucose [Mass/Vol] 175 mg/dL Critically high 74-106 [facility] Comment on above: Performed By: #### P OCGLUC ####[facility] Onolvjrpme4548 [place] [phone] Reagan PROF 14(COMP METB)on 021 Albumin [Mass/Vol] 2.4 g/dL Critically low 3.5-5.0 [facility] Comment on above: Performed By: #### C MP ####[facility] Vwjyvglyzc0114 [place] [id number]. Anjali Reagan Albumin/Globulin [Mass ratio] 0.6 {ratio} Normal [facility] Comment on above: Performed By: #### C MP ####[facility] Jmzdngwqah7742 [place] [phone]. Anjali Reagan ALP [Catalytic activity/Vol] 93 U/L Normal 38-126 [facility] Comment on above: Performed By: #### C MP ####[facility] Etmozvufsk0055 [place] [phone]. Anjali Reagan ALT [Catalytic activity/Vol] 18 U/L Critically low 21-72 [facility] Comment on above: Performed By: #### C MP ####[facility] Jjdratcgzl1928 [place] [phone]. Anjali Reagan Anion gap [Moles/Vol] 12.5 mmol/L Normal Th e [facility] Comment on above: Performed By: #### C MP ####[facility] Eaycnirgek3191 [place] [address]Dr. Anjali Reagan AST [Catalytic activity/Vol] 30 U/L Normal 17-59 [facility] Comment on above: Performed By: #### C MP ####[facility] Nittlybjhz0[address] [place], [place] [address]Dr. Anjali Tez Bilirubin [Mass/Vol] 0.5 mg/dL Normal 0.2-1.3 [facility] Comment on above: Performed By: #### C MP ####[facility] Qzamethlzm1216[address] [place], [place] [address]Dr. Anjali Tez Calcium [Mass/Vol] 8.5 mg/dL Normal 8.4-10.2 [facility] Comment on above: Performed By: #### C MP ####[facility] Jfdjnvtqsk4[address] [place], [place] [address]Dr. Anjali Reagan Chloride [Moles/Vol] 103 mmol/L Normal 98-107 The [facility] Comment on above: Performed By: #### C MP ####[facility] Muieyhkpqo4[address] [place], [place] [address]Dr. Anjali Reagan CO2 [Moles/Vol] 25.8 mmol/L Normal 22.0-30.0 The [facility] Comment on above: Performed By: #### C MP ####[facility] Jjbqlqfzsl94[address] [place], [place] [address]Dr. Anjali Tez Creatinine [Mass/Vol] 1.09 mg/dL Normal 0.66-1.25 [facility] Comment on above: Performed By: #### C MP ####[facility] Chzwacfvud7018 [place] [phone]. Anjali Reagan EGFR-AF [place] >60 Normal >=60 [facility] Comment on above: Performed By: #### C MP ####[facility] Fbpkabactj2350 [place] [phone]. Anjali Reagan EGFR-NON AF [place] >60 Normal >=60 [facility] Comment on above: Performed By: #### C MP ####[facility] Cbhcibmtgg8628 [place] [address]Dr. Anjali Reagan Globulin (S) [Mass/Vol] 3.7 g/dL Normal [facility] Comment on above: Performed By: #### C MP ####[facility] Mjjgzjatxn1709 [place] [address]Dr. Anjali Reagan Glucose [Mass/Vol] 165 mg/dL Critically high 74-106 [facility] Comment on above: Performed By: #### C MP ####[facility] Ioxntuxset0[address] [place], [place] [address]Dr. Anjali Reagan Potassium [Moles/Vol] 4.3 mmol/L Normal 3.4-5.0 [facility] Comment on above: Performed By: #### C MP ####[facility] Hhjixjzbkf3[address] [place], [place] [address]Dr. Anjali Reagan Protein [Mass/Vol] 6.1 g/dL Normal 6.1-8.2 [facility] Comment on above: Performed By: #### C MP ####[facility] Jfcvbmdirv5989 [place] [address]Dr. Anjali Reagan Sodium [Moles/Vol] 137 mmol/L Normal 137-145 [facility] Comment on above: Performed By: #### C MP ####[facility] Kgyqbmimon8072[address] [place], [place] [address]Dr. Anjali Reagan Urea nitrogen [Mass/Vol] 24.0 mg/dL Critically high 9.0-20 .0 [facility] Comment on above: Performed By: #### C MP ####[facility] Olkieeplhl6531 [place] [address]Dr. Anjali Reagan Urea nitrogen/Creatinine [Mass ratio] 22.0 mg/mg Normal [facility] Comment on above: Performed By: #### C MP ####[facility] Gygnhazomb9[address] [place], [place] [address]Dr. Anjali Tez ALBUMINon 02-11-2021 Albumin [Mass/Vol] 2.8 g/dL Critically low 3.5-5.0 [facility] Comment on above: Performed By: #### P REALB, ALB ####[facility] Eohyggdqft37[address] [place], [place] [address]Dr. Anjali Tez CBC AUTO DIFFon 02-11-2021 BASO # 0.0 103/ul Normal 0.0-0.1 [facility] Comment on above: Performed By: #### C BC ####[facility] Vsdczotzso09[address] [place], [place] [address]Dr. Anjali Reagan Basophils/100 WBC (Bld) 0.5 % Normal 0.2-2.0 [facility] Comment on above: Performed By: #### C BC ####[facility] Fftfzyylcu5325[address] [place], [place] [address]Dr. Anjali Reagan EO # 0.5 103/ul Normal 0.0-0.7 [facility] Comment on above: Performed By: #### C BC ####[facility] Xhjmibxjlh209[address] [place], [place] [address]Dr. Anjali Reagan Eosinophils/100 WBC (Bld) 7.4 % Critically high 0.9-7.0 [facility] Comment on above: Performed By: #### C BC ####[facility] Gkcvxjeniw4[address] [place], [place] [address]Dr. Anjali Reagan Erythrocyte distribution width (RBC) [Ratio] 18.7 % Critically high 11.0-15.0 [facility] Comment on above: Performed By: #### C BC ####[facility] Zyazmetvpx32[address] [place], [place] [address]Dr. Anjali Reagan Hematocrit (Bld) [Volume fraction] 30.7 % Critically low 42.0-54.0 [facility] Comment on above: Performed By: #### C BC ####[facility] Gmnfxqovnn9734 [place] [address]Dr. Anjali Tez Hemoglobin (Bld) [Mass/Vol] 9.5 g/dL Critically low 14.0-18.0 [facility] Comment on above: Performed By: #### C BC ####[facility] Lposzjjzyb9573 [place] [address]DrVeronica Reagan IG # 0.05 10e3/ul Critically high 0.00-0.03 [facility] Comment on above: Performed By: #### C BC ####[facility] Ovhzjijeki9899 [place] [address]DrVeronica Reagan IG % 0.8 % Critically high 0.0-0.5 [facility] Comment on above: Performed By: #### C BC ####[facility] Sqpdbwucdc8151 [place] [address]DrVeronica Reagan LYMPH # 0.6 103/ul Critically low 1.2-3.8 [facility] Comment on above: Performed By: #### C BC ####[facility] Wfkedoqcpn6071 [place] [address]DrVeronica Reagan Lymphocytes/100 WBC (Bld) 8.5 % Critically low 20.5-60.0 [facility] Comment on above: Performed By: #### C BC ####[facility] Mjrwaquqcy2042 [place] [address]DrVeronica Reagan MANUAL DIFF REQ NO Normal [facility] Comment on above: Performed By: #### C BC ####[facility] Ztfajrlydy9606 [place] [phone]. Anjali Reagan MCH (RBC) [Entitic mass] 25.3 pg Critically low 25.9-34 .0 [facility] Comment on above: Performed By: #### C BC ####[facility] Zleleospxo7253 [place] [address]Dr. Anjali Reagan MCHC (RBC) [Mass/Vol] 30.9 g/dL Normal 29.9-35.2 [facility] Comment on above: Performed By: #### C BC ####[facility] Yjrowoqtqm1498 [place] [address]DrVeronica Anjali Tez MCV (RBC) [Entitic vol] 81.6 fL Normal 80.0-94.0 [facility] Comment on above: Performed By: #### C BC ####[facility] Rwvwttkken0254 [place] [phone] Valenzuelaramona Tez MONO # 0.8 103/ul Normal 0.3-0.8 [facility] Comment on above: Performed By: #### C BC ####[facility] Fywykpxmba4823 [place] [address]Dr. Anjali Reagan Monocytes/100 WBC (Bld) 12.2 % Critically high 1.7-12. 0 [facility] Comment on above: Performed By: #### C BC ####[facility] Alqsqqfpkq7[address] [place], [place] [address]Dr. Biancaramona Tez NEUT # 4.6 103/ul Normal 1.4-6.5 [facility] Comment on above: Performed By: #### C BC ####[facility] Ddhnkysumy7609 [place] [address]Dr. Biancaramona Reagan Neutrophils/100 WBC (Bld) 70.6 % Normal 43.0-75.0 The [facility] Comment on above: Performed By: #### C BC ####[facility] Sfmtyavznp8818 [place] [phone] Reagan Platelet mean volume (Bld) [Entitic vol] 9.6 fL Normal 9.5-13.5 [facility] Comment on above: Performed By: #### C BC ####[facility] Faefwaqzro8278 [place] [phone]. Anjali Reagan PLT 205 103/ul Normal 150-450 [facility] Comment on above: Performed By: #### C BC ####[facility] Ebuxhnrduk6960 [place] [phone]. Anjali Reagan RBC 3.76 106/ul Critically low 4.70-6.10 [facility] Comment on above: Performed By: #### C BC ####[facility] Ozzpieryza4376 [place] [id number]. Anjali Reagan WBC 6.5 103/ul Normal 4.0-11.0 [facility] Comment on above: Performed By: #### C BC ####[facility] Xfjkybmsqp4256 [place] [phone]. Biancaramona Tez CULTURE ANAEROBICon 02-12-20 21 CULTURE ANAEROBIC Specimen Comments: RIGHT ANKLE JOINT Culture Observations: NO GROWTH AT 72 HRS Normal [facility] Comment on above: Performed By: #### A NACX ####[facility] Brtrmwhgov[address] [place], [place] [address]Dr. Biancaramona Tez CULTURE OTHERon 02-11-2021 CULTURE OTHER Specimen Comments: RIGHT ANKLE JOINT Culture Observations: NO GROWTH AT 72 HRS Normal [facility] Comment on above: Performed By: #### O THCX ####[facility] Cjhqbwwkjs[address] [place], [place] [address]Dr. Anjali Reagan GRAM STAINon 02-11-2021 COMMENTS NO ORGANISMS OBSERVED Normal The [facility] Comment on above: Performed By: #### G STAIN ####[facility] Ofaxcgwfby15[address] [place], [place] [address]Dr. Anjali Reagan DIPHTHEROIDS Normal The [facility] Comment on above: Performed By: #### G STAIN ####[facility] Wwpgkzfiot62[address] [place], [place] [address]Dr. Anjali Reagan EPITHELIALS Normal The [facility] Comment on above: Performed By: #### G STAIN ####[facility] Iurjurmeia7773 [place] [id number]. Anjali Reagan FUNGAL ELEMENTS Normal [facility] Comment on above: Performed By: #### G STAIN ####[facility] Kwwieikemp[address] [place], [place] [address]Dr. Anjali Reagan GRAM NEG BACILLI Normal [facility] Comment on above: Performed By: #### G STAIN ####[facility] Qyfqheuvbn24[address] [place], [place] [address]Dr. Anjali Reagan GRAM NEG DIPPLOCOCCI Normal The [facility] Comment on above: Performed By: #### G STAIN ####[facility] Ibfcevkwpv2357 [place] [address]Dr. Anjali Reagan GRAM POS BACILLI Normal [facility] Comment on above: Performed By: #### G STAIN ####[facility] Hpgaavunbz5108 [place] [address]Dr. Anjali Reagan GRAM POSITIVE COCCI Normal [facility] Comment on above: Performed By: #### G STAIN ####[facility] Gqvrtmquyz7[address] [place], [place] [address]Dr. Anjali Reagan GRAM STAIN SOURCE Right ankle joint Normal [facility] Comment on above: Performed By: #### G STAIN ####[facility] Swhhgthflw8[address] [place], [place] [address]Dr. Anjali Reagan GS_DIPTH Normal [facility] Comment on above: Performed By: #### G STAIN ####[facility] Iqfqzjsazn22[address] [place], [place] [address]Dr. Anjali Reagan WBC FEW Normal [facility] Comment on above: Performed By: #### G STAIN ####[facility] Yhbgadrfvy18[address] [place], [place] [address]Dr. Anjali Reagan POINT OF CARE GLUCOSEon 01-31 Glucose [Mass/Vol] 196 mg/dL Critically high 74-106 [facility] Comment on above: Performed By: #### P OCGLUC ####[facility] Etiksnmnpb85[address] [place], [place] [address]Dr. Anjali Reagan Glucose [Mass/Vol] 176 mg/dL Critically high 74-106 [facility] Comment on above: Performed By: #### P OCGLUC ####[facility] Earowlpbvz[address] [place], [place] [address]Dr. Anjali Reagan PREALBUMINon 02-11-2021 Prealbumin [Mass/Vol] 17.8 mg/dL Normal 17.6-36.0 [facility] Comment on above: Performed By: #### P REALB, ALB ####[facility] Jzczslgaud[address] [place], [place] [address]Dr. Anjali Reagan PROF 14(COMP METB)on 021 Albumin [Mass/Vol] 2.6 g/dL Critically low 3.5-5.0 [facility] Comment on above: Performed By: #### B MP, CMP ####[facility] Iovkkapgon2148 [place] [id number]. Anjali Reagan Albumin/Globulin [Mass ratio] 0.6 {ratio} Normal [facility] Comment on above: Performed By: #### B MP, CMP ####[facility] Hcaqknrftg7549 [place] [id number]. Anjali Reagan ALP [Catalytic activity/Vol] 104 U/L Normal 38-126 [facility] Comment on above: Performed By: #### B ALEA, CMP ####[facility] Lzzlvfmtgw5573 [place] [id number]. Anjali Reagan ALT [Catalytic activity/Vol] 17 U/L Critically low 21-72 [facility] Comment on above: Performed By: #### B ALEA, CMP ####[facility] Xscacpzeqx0434 [place] [id number]. Anjali Reagan AST [Catalytic activity/Vol] 26 U/L Normal 17-59 [facility] Comment on above: Performed By: #### B MP, CMP ####[facility] Ffwuubfuan5188 [place] [id number]. Anjali Reagan Bilirubin [Mass/Vol] 0.5 mg/dL Normal 0.2-1.3 [facility] Comment on above: Performed By: #### B MP, CMP ####[facility] Ojvrkspxsf2351 [place] [id number]. Anjali Reagan Globulin (S) [Mass/Vol] 4.1 g/dL Normal [facility] Comment on above: Performed By: #### B MP, CMP ####[facility] Mllevkjoli1833 [place] [id number]. Anjali Reagan Protein [Mass/Vol] 6.7 g/dL Normal 6.1-8.2 [facility] Comment on above: Performed By: #### B MP, CMP ####[facility] V[address]yyvnvw9[address] [place] [id number]. Anjali Reagan PROF CHEM 8 (BAS METB)on Anion gap [Moles/Vol] 11.3 mmol/L Normal [facility] Comment on above: Performed By: #### B MP, CMP ####[facility] Dlkwczugkt88[address] [place] [id number]. Anjali Reagan Calcium [Mass/Vol] 9.0 mg/dL Normal 8.4-10.2 [facility] Comment on above: Performed By: #### B MP, CMP ####[facility] Htogswxehk58[address] [place], [place] [address]Dr. Anjali Reagan Chloride [Moles/Vol] 101 mmol/L Normal 98-107 [facility] Comment on above: Performed By: #### B MP, CMP ####[facility] Tfngpvvkoy9[address] [place], [place] [address]Dr. Anjali Reagan CO2 [Moles/Vol] 28.0 mmol/L Normal 22.0-30.0 [facility] Comment on above: Performed By: #### B MP, CMP ####[facility] Prsmwjsptg2506[address] [place], [place] [address]Dr. Anjali Reagan Creatinine [Mass/Vol] 1.23 mg/dL Normal 0.66-1.25 [facility] Comment on above: Performed By: #### B MP, CMP ####[facility] Vvnbklvdap97[address] [place], [place] [address]Dr. Anjali Reagan EGFR-AF EAST [place] >60 Normal >=60 [facility] Comment on above: Performed By: #### B MP, CMP ####[facility] Jcyhbksnpy[address] [place], [place] [id number]. Anjali Reagan EGFR-NON AF [place] 59 mL/min/1.73m2 Critically low >=60 [facility] Comment on above: Performed By: #### B MP, CMP ####[facility] Prodsenppr[address] [place], [place] [address]Dr. Anjali Reagan Glucose [Mass/Vol] 109 mg/dL Critically high 74-106 [facility] Comment on above: Performed By: #### B MP, CMP ####[facility] Gwrjlgwkbv[address] [place] [address]Dr. Biancaramona Tez Potassium [Moles/Vol] 3.9 mmol/L Normal 3.4-5.0 [facility] Comment on above: Performed By: #### B MP, CMP ####[facility] Xtpqrflkco6479[address] [place], [place] [address]Dr. Anjali Reagan Sodium [Moles/Vol] 136 mmol/L Critically low 137-145 [facility] Comment on above: Performed By: #### B MP, CMP ####[facility] Ermcwbkkvw8318[address] [place], [place] [address]Dr. Anjali Reagan Urea nitrogen [Mass/Vol] 32.0 mg/dL Critically high 9.0-20 .0 [facility] Comment on above: Performed By: #### B MP, CMP ####[facility] Ltpwyespfl8989[address] [place], [place] [address]Dr. Anjali Reagan Urea nitrogen/Creatinine [Mass ratio] 26.0 mg/mg Normal [facility] Comment on above: Performed By: #### B MP, CMP ####[facility] Olfabvekxt1850[address] [place], [place] [address]Dr. Anjali Reagan VANCOMYCIN TROUGHon 02-12-20 21 VANCOMYCIN TROUGH 9.8 ug/ml Normal 5.0-20.0 [facility] Comment on above: Performed By: #### V ANCT ####[facility] Zrmvejkxcx6789[address] [place], [place] [address]Dr. Biancaramona Tez XR ANKLE RT 2Von 02-11-2021 XR ANKLE RT 2V Normal [facility] XR FOOT RT MIN 3 VIEWSon XR FOOT RT MIN 3 VIEWS Normal [facility] CBC AUTO DIFFon 02-10-2021 BASO # 0.0 103/ul Normal 0.0-0.1 [facility] Comment on above: Performed By: #### C BC ####[facility] Yfdhaniepy7484[address] [place], [place] [address]Dr. Anjali Reagan Basophils/100 WBC (Bld) 0.3 % Normal 0.2-2.0 [facility] Comment on above: Performed By: #### C BC ####[facility] Zzfxohrghy[address] [place] [address]DrVeronica Reagan EO # 0.2 103/ul Normal 0.0-0.7 [facility] Comment on above: Performed By: #### C BC ####[facility] Zdpabduwdx372[address] [place], [place] [address]DrVeronica Reagan Eosinophils/100 WBC (Bld) 2.7 % Normal 0.9-7.0 [facility] Comment on above: Performed By: #### C BC ####[facility] Crhsctibcf8637[address] [place], [place] [address]DrVeronica Reagan Erythrocyte distribution width (RBC) [Ratio] 18.8 % Critically high 11.0-15.0 [facility] Comment on above: Performed By: #### C BC ####[facility] Boenqghodh2738[address] [place], [place] [address]DrVeronica Reagan Hematocrit (Bld) [Volume fraction] 31.6 % Critically low 42.0-54.0 [facility] Comment on above: Performed By: #### C BC ####[facility] Hxkaqsmnaz1920[address] [place], [place] [address]DrVeronica Reagan Hemoglobin (Bld) [Mass/Vol] 9.6 g/dL Critically low 14.0-18.0 [facility] Comment on above: Performed By: #### C BC ####[facility] Wljgrqlzow8277[address] [place], [place] [address]DrVeronica Reagan IG # 0.04 10e3/ul Critically high 0.00-0.03 [facility] Comment on above: Performed By: #### C BC ####[facility] Mytiumxtjt7509[address] [place], [place] [address]DrVeronica Reagan IG % 0.6 % Critically high 0.0-0.5 [facility] Comment on above: Performed By: #### C BC ####[facility] Ldpdqebccz2925[address] [place], [place] [address]Dr. Anjali Reagan LYMPH # 0.9 103/ul Critically low 1.2-3.8 [facility] Comment on above: Performed By: #### C BC ####[facility] Cflhcalcun[address] [place] [address]Dr. Anjali Reagan Lymphocytes/100 WBC (Bld) 12.2 % Critically low 20.5-60.0 [facility] Comment on above: Performed By: #### C BC ####[facility] Bunhzimits[address] [place] [address]Dr. Anjali Reagan MANUAL DIFF REQ NO Normal [facility] Comment on above: Performed By: #### C BC ####[facility] Zcdqblnluw9660 [place] [address]Dr. Anjali Reagan MCH (RBC) [Entitic mass] 24.7 pg Critically low 25.9-34 .0 [facility] Comment on above: Performed By: #### C BC ####[facility] Exlagamdst44[address] [place], [place] [address]Dr. Anjali Reagan MCHC (RBC) [Mass/Vol] 30.4 g/dL Normal 29.9-35.2 [facility] Comment on above: Performed By: #### C BC ####[facility] Fxwabxrsgl23[address] [place], [place] [address]Dr. Anjali Reagan MCV (RBC) [Entitic vol] 81.4 fL Normal 80.0-94.0 [facility] Comment on above: Performed By: #### C BC ####[facility] Fqberluxdb4486[address] [place], [place] [address]DrVeronica Reagan MONO # 0.7 103/ul Normal 0.3-0.8 [facility] Comment on above: Performed By: #### C BC ####[facility] Hnykwtdhuq8043[address] [place], [place] [address]Dr. Anjali Reagan Monocytes/100 WBC (Bld) 9.9 % Normal 1.7-12.0 [facility] Comment on above: Performed By: #### C BC ####[facility] Snymugonin05[address] [place], [place] [address]Dr. Anjali Reagan NEUT # 5.3 103/ul Normal 1.4-6.5 [facility] Comment on above: Performed By: #### C BC ####[facility] Jxqurhvqry57[address] [place] [phone]. Anjali Reagan Neutrophils/100 WBC (Bld) 74.3 % Normal 43.0-75.0 [facility] Comment on above: Performed By: #### C BC ####[facility] Dleucsmsrc[address] [place] [address]Dr. Anjali Reagan Platelet mean volume (Bld) [Entitic vol] 9.6 fL Normal 9.5-13.5 [facility] Comment on above: Performed By: #### C BC ####[facility] Odintgfanf[address] [place] [address]Dr. Anjali Reagan PLT 218 103/ul Normal 150-450 [facility] Comment on above: Performed By: #### C BC ####[facility] Vbnvofydul96[address] [place] [address]Dr. Anjali Reagan RBC 3.88 106/ul Critically low 4.70-6.10 [facility] Comment on above: Performed By: #### C BC ####[facility] Ketqkrmegv6[address] [place] [address]Dr. Anjali Reagan WBC 7.1 103/ul Normal 4.0-11.0 [facility] Comment on above: Performed By: #### C BC ####[facility] Saufzjdlgp14[address] [place] [address]Dr. Anjali Reagan POINT OF CARE GLUCOSEon 11- Glucose [Mass/Vol] 219 mg/dL Critically high 74-106 [facility] Comment on above: Performed By: #### P OCGLUC ####[facility] Zzbsboggla6[address] [place] [address]Dr. Anjali Reagan Glucose [Mass/Vol] 136 mg/dL Critically high 74-106 [facility] Comment on above: Performed By: #### P OCGLUC ####[facility] Elndridyrw24[address] [place] [address]Dr. Biancaramona Reagan Glucose [Mass/Vol] 119 mg/dL Critically high 74-106 [facility] Comment on above: Performed By: #### P OCGLUC ####[facility] Dgkqqpedsc25[address] [place] [address]Dr. Anjali Reagan PROF 14(COMP METB)on 021 Albumin [Mass/Vol] 2.8 g/dL Critically low 3.5-5.0 [facility] Comment on above: Performed By: #### C MP, BMP ####[facility] Ajaraxxksy15[address] [place] [address]Dr. Anjali Reagan Albumin/Globulin [Mass ratio] 0.7 {ratio} Normal [facility] Comment on above: Performed By: #### C MP, BMP ####[facility] Rtuwdrbhye70[address] [place], [place] [address]Dr. Anjali Reagan ALP [Catalytic activity/Vol] 109 U/L Normal 38-126 [facility] Comment on above: Performed By: #### C MP, BMP ####[facility] Dkedwfltyz24[address] [place], [place] [address]Dr. Biancaramona Tez ALT [Catalytic activity/Vol] 23 U/L Normal 21-72 [facility] Comment on above: Performed By: #### C MP, BMP ####[facility] Pbimhzsssp38[address] [place] [address]Dr. Biancaramona Tez AST [Catalytic activity/Vol] 24 U/L Normal 17-59 [facility] Comment on above: Performed By: #### C MP, BMP ####[facility] Jsrflqldnt7243[address] [place], [place] [address]Dr. Anjali Reagan Bilirubin [Mass/Vol] 0.4 mg/dL Normal 0.2-1.3 [facility] Comment on above: Performed By: #### C MP, BMP ####[facility] Cexzvhahqv4736 [place] [address]Dr. Anjali Reagan Globulin (S) [Mass/Vol] 4.1 g/dL Normal [facility] Comment on above: Performed By: #### C MP, BMP ####[facility] Dgnwsrjlkf1855 [place] [address]Dr. Anjali Reagan Protein [Mass/Vol] 6.9 g/dL Normal 6.1-8.2 [facility] Comment on above: Performed By: #### C MP, BMP ####[facility] Inlnurdnlr4133 [place] [address]Dr. Anjali Reagan PROF CHEM 8 (BAS METB)on Anion gap [Moles/Vol] 13.0 mmol/L Normal [facility] Comment on above: Performed By: #### C MP, BMP ####[facility] Gprmghzhdf3066[address] [place], [place] [address]Dr. Anjali Reagan Calcium [Mass/Vol] 9.4 mg/dL Normal 8.4-10.2 [facility] Comment on above: Performed By: #### C MP, BMP ####[facility] Rvzaikzsam40[address] [place], [place] [address]Dr. Anjali Reagan Chloride [Moles/Vol] 104 mmol/L Normal 98-107 [facility] Comment on above: Performed By: #### C MP, BMP ####[facility] Taxkzdbgae2547[address] [place], [place] [address]Dr. Anjali Reagan CO2 [Moles/Vol] 27.7 mmol/L Normal 22.0-30.0 [facility] Comment on above: Performed By: #### C MP, BMP ####[facility] Hghwqxgkkp4102[address] [place], [place] [address]Dr. Anjali Reagan Creatinine [Mass/Vol] 1.19 mg/dL Normal 0.66-1.25 [facility] Comment on above: Performed By: #### C MP, BMP ####[facility] Poblfdmelk218[address] [place], [place] [address]Dr. Anjali Reagan EGFR-AF [place] >60 Normal >=60 [facility] Comment on above: Performed By: #### C MP, BMP ####[facility] Ubipzhzcbb8790[address] [place], [place] [address]Dr. Biancaramona Tez EGFR-NON AF [place] >60 Normal >=60 [facility] Comment on above: Performed By: #### C MP, BMP ####[facility] Qdevnvbryq5985 [place] [address]Dr. Anjali Reagan Glucose [Mass/Vol] 81 mg/dL Normal 74-106 [facility] Comment on above: Performed By: #### C MP, BMP ####[facility] Clwzghzlhc9057 [place] [address]Dr. Biancaramona Tez Potassium [Moles/Vol] 4.1 mmol/L Normal 3.4-5.0 [facility] Comment on above: Performed By: #### C MP, BMP ####[facility] Gbluzqxvxx43[address] [place] [address]Dr. Biancaramona Tez Sodium [Moles/Vol] 141 mmol/L Normal 137-145 [facility] Comment on above: Performed By: #### C MP, BMP ####[facility] Cmsuplcdxe7608[address] [place], [place] [address]Dr. Anjali Reagan Urea nitrogen [Mass/Vol] 41.0 mg/dL Critically high 9.0-20 .0 [facility] Comment on above: Performed By: #### C MP, BMP ####[facility] Pqgzzjaitn[address] [place], [place] [address]Dr. Anjali Reagan Urea nitrogen/Creatinine [Mass ratio] 34.4 mg/mg Normal [facility] Comment on above: Performed By: #### C MP, BMP ####[facility] Itwwcgohqi7550[address] [place], [place] [address]Dr. Anjali Reagan CBC W MANUAL DIFFon 02-10-20 21 ANISOCYTOSIS SLIGHT Normal [facility] Comment on above: Performed By: #### C BCMAN ####[facility] Suvjskxynh[address] [place], [place] [address]Dr. Anjali Reagan ATYPICAL LYMPH # Normal [facility] Comment on above: Performed By: #### C BCMAN ####[facility] Aewmmuqbda[address] [place] [address]Dr. Anjali Reagan ATYPICAL LYMPH % Normal [facility] Comment on above: Performed By: #### C SAUMYAMAN ####[facility] Wfcgpforcw8144 [place] [phone]. Yilan Reagan BAND # Normal 0.0-0.3 [facility] Comment on above: Performed By: #### C BCMAN ####[facility] Bcflllinbh4[address] [place] [address]Dr. Yilan Reagan BAND % Normal 0-5 [facility] Comment on above: Performed By: #### C BCFIONA ####[facility] Sjveauduzv8616 [place] [address]Dr. Yilan Reagan BASOM # 0.00 103/ul Normal 0.00-0.10 [facility] Comment on above: Performed By: #### C CORI ####[facility] Ucjywpqsjj48[address] [place], [place] [address]Dr. Yilan Reagan BASOM % 0.0 % Critically low 0.2-2.0 The [facility] Comment on above: Performed By: #### C CORI ####[facility] Gkfxdtepum[address] [place], [place] [address]Dr. Yilan Reagan BLAST # Normal [facility] Comment on above: Performed By: #### C CORI ####[facility] Zloeogiakl44[address] [place], [place] [address]Dr. Yilan Reagan BLAST % Normal [facility] Comment on above: Performed By: #### C CORI ####[facility] Xrergamtxh45[address] [place], [place] [address]Dr. Yilan Reagan CORRECTED WBC Normal 4.0-11.0 [facility] Comment on above: Performed By: #### C BCFIONA ####[facility] Duxolsqymt7[address] [place] [address]Dr. Yilan Reagan EOS # 0.00 103/ul Normal 0.00-0.70 [facility] Comment on above: Performed By: #### C BCFIONA ####[facility] Ycwejopxof04[address] [place], [place] [address]Dr. Yilan Reagan EOS% 0.0 % Critically low 0.9-7.0 The [facility] Comment on above: Performed By: #### C CORI ####[facility] Mhnilvdcmr1442 [place], [place] [address]Gg. Anjali Reagan HCT 31.1 % Critically low 42.0-54.0 The [facility] Comment on above: Performed By: #### C CORI ####[facility] Fjoipebohs0014 [place], [place] [address]Ka. Anjali Reagan HGB 9.6 g/dl Critically low 14.0-18.0 The [facility] Comment on above: Performed By: #### C CORI ####[facility] Atahwzilds5970 [place], [place] [address]Fz. Anjali Reagan LYMPHM # 0.73 103/ul Critically low 1.20-3.80 [facility] Comment on above: Performed By: #### C CORI ####[facility] Fbntefttsp6553 [place], [place] [address]Pk. Anjali Reagan LYMPHM% 7.0 % Critically low 20.5-60.0 The [facility] Comment on above: Performed By: #### C CORI ####[facility] Rgeqvbwjws2778 [place], [place] [address]Kh. Anjali Reagan MCH 25.1 pg Critically low 25.9-34.0 The [facility] Comment on above: Performed By: #### C CORI ####[facility] Wsbyxxvznk7495 [place], [place] [address]Gi. Anjali Reagan MCHC 30.9 g/dl Normal 29.9-35.2 [facility] Comment on above: Performed By: #### C CORI ####[facility] Pzykcbzxiq9171 [place], [place] [address]Pb. Anjali Reagan MCV 81.4 fL Normal 80.0-94.0 [facility] Comment on above: Performed By: #### C CORI ####[facility] Nywpmeuufg9451 [place], [place] [address]Oi. Anjali Reagan METAMYELOCYTE # Normal [facility] Comment on above: Performed By: #### C CORI ####[facility] Zvfkdxovor5610 [place] [phone]. Anjali Reagan METAMYELOCYTE % Normal [facility] Comment on above: Performed By: #### C BCFIONA ####[facility] Pmoqcjvjdi4641 [place] [phone]. Anjali Reagan MONOM# 0.31 103/ul Normal 0.30-0.80 [facility] Comment on above: Performed By: #### C BCFIONA ####[facility] Dnevtoynez9450 [place] [phone]. Anjali Reagan MONOM% 3.0 % Normal 1.7-12.0 [facility] Comment on above: Performed By: #### C CORI ####[facility] Wsgmuatycx1614 [place] [phone]. Anjali Reagan MPV 9.9 fL Normal 9.5-13.5 [facility] Comment on above: Performed By: #### C CORI ####[facility] [address]vh[address]wn[address] [place], [place] [address]Dr. Anjali Reagan MYELOCYTE # Normal [facility] Comment on above: Performed By: #### C CORI ####[facility] Xxndbdrquk[address] [place], [place] [address]Dr. Anjali Reagan MYELOCYTE % Normal [facility] Comment on above: Performed By: #### C CORI ####[facility] Locawocntm[address] [place], [place] [address]Dr. Anjali Reagan NRBC Normal [facility] Comment on above: Performed By: #### C BCFIONA ####[facility] Jheuivhzty9038 [place] [phone]. Anjali Reagan OVALOCYTES SLIGHT Normal [facility] Comment on above: Performed By: #### C CORI ####[facility] Znomhhrgai[address] [place], [place] [address]Dr. Anjali Reagan PLT 211 103/ul Normal 150-450 [facility] Comment on above: Performed By: #### C CORI ####[facility] Axxwobrhcf6523 [place] [phone]. Biancaramona Reagan POIKILOCYTOSIS SLIGHT Normal The [facility] Comment on above: Performed By: #### C CORI ####[facility] Lkuyjlmlou9069 [place], [place] [address]Ol. Anjali Reagan RBC 3.82 106/ul Critically low 4.70-6.10 [facility] Comment on above: Performed By: #### C CORI ####[facility] Jpaaotqnpu2962 [place], [place] [address]Hm. Anjali Reagan RDW 18.4 % Critically high 11.0-15.0 [facility] Comment on above: Performed By: #### C CORI ####[facility] Wetawrgvcf3441 [place], [place] [address]De. Anjali Reagan SEG # 9.36 103/ul Critically high 1.40-6.50 [facility] Comment on above: Performed By: #### C CORI ####[facility] Yrlmhlkjsc2617 [place] [phone]. Anjali Reagan SEG % 90.0 % Critically high 43.0-75.0 [facility] Comment on above: Performed By: #### C CORI ####[facility] Fxwfrvixue6746 [place], [place] [address]Nt. Anjali Reagan WBC 10.4 103/ul Normal 4.0-11.0 [facility] Comment on above: Performed By: #### C CORI ####[facility] Bjdfbzxlmn6148 [place] [phone]. Anjali Reagan HEP B SURFACE ANTIGEN SCREEN on 02-09-2021 HBsAg Screen Negative Normal Negative [facility] Comment on above: Performed By: #### H BSANS ####[facility] Titnvakpiw5972 [place] [phone]. Anjali Reagan HEPATITIS C ANTIBODYon 02-09 Hep C Virus Ab <0.1 Normal 0.0-0.9 [facility] Comment on above: Result Comment: Nega tive: < 0.8 Indeterminate: 0.8 - 0.9 Positive: > 0.9 . The CDC recommends that a positive HCV antibody result be followed up with a HCV Nucleic Acid Amplification test (149869). Performed By: #### H CV ####[facility] Zxjbxpfwea8[address] [place] [address]Dr. Anjali Reagan HIV 1 AND 2 WITH REFLEXon HIV Screen 4th Generation wRfx Non-Reactive Normal Non Reactive [facility] Comment on above: Performed By: #### H IV12 ####[facility] Bpiipbqprx3565 [place] [address]Dr. Anjali Reagan POINT OF CARE GLUCOSEon 01-31 Glucose [Mass/Vol] 170 mg/dL Critically high 74-106 [facility] Comment on above: Performed By: #### P OCGLUC ####[facility] Kxexrtgeti55[address] [place], [place] [address]Dr. Biancaramona Reagan Glucose [Mass/Vol] 265 mg/dL Critically high -106 [facility] Comment on above: Performed By: #### P OCGLUC ####[facility] Qfsdzzpbjq9148[address] [place], [place] [address]Dr. Anjali Reagan Glucose [Mass/Vol] 319 mg/dL Critically high -106 [facility] Comment on above: Performed By: #### P OCGLUC ####[facility] Cstsjycvyu[address] [place], [place] [address]Dr. Anjali Reagan PROF 14(COMP METB)on 021 Albumin [Mass/Vol] 2.8 g/dL Critically low 3.5-5.0 [facility] Comment on above: Performed By: #### C MP ####[facility] Zhgaizyhhe[address] [place], [place] [address]Dr. Anjali Reagan Albumin/Globulin [Mass ratio] 0.7 {ratio} Normal [facility] Comment on above: Performed By: #### C MP ####[facility] Akvporqsem9[address] [place], [place] [address]Dr. Anjali Reagan ALP [Catalytic activity/Vol] 117 U/L Normal 38-126 [facility] Comment on above: Performed By: #### C MP ####[facility] Bxuoroducw39[address] [place], [place] [address]Dr. Anjali Reagan ALT [Catalytic activity/Vol] 21 U/L Normal 21-72 [facility] Comment on above: Performed By: #### C MP ####[facility] Scagaxjtwq1589 [place] [id number]. Anjali Reagan Anion gap [Moles/Vol] 13.0 mmol/L Normal Th e [facility] Comment on above: Performed By: #### C MP ####[facility] Fkqndtmfhi0737 [place] [id number]. Anjali Reagan AST [Catalytic activity/Vol] 21 U/L Normal 17-59 [facility] Comment on above: Performed By: #### C MP ####[facility] Sypvyuvqiu7011 [place] [phone]. Anjali Tez Bilirubin [Mass/Vol] 0.5 mg/dL Normal 0.2-1.3 [facility] Comment on above: Performed By: #### C MP ####[facility] Imevwrcvtu7913 [place] [phone]. Anjali Tez Calcium [Mass/Vol] 9.3 mg/dL Normal 8.4-10.2 [facility] Comment on above: Performed By: #### C MP ####[facility] Psqobvavpg2565 [place] [phone]. Anjali Tez Chloride [Moles/Vol] 100 mmol/L Normal 98-107 [facility] Comment on above: Performed By: #### C MP ####[facility] Tdhqagngqj5681 [place] [phone]. Anjali Tez CO2 [Moles/Vol] 27.5 mmol/L Normal 22.0-30.0 [facility] Comment on above: Performed By: #### C MP ####[facility] Oabssgxdgh7175 [place] [phone]. Anjali Tez Creatinine [Mass/Vol] 1.49 mg/dL Critically high 0.66-1.25 [facility] Comment on above: Performed By: #### C MP ####[facility] Xjffduawsm38[address] [place] [id number]. Anjali Tez EGFR-AF [place] 58 mL/min/1.73m2 Critically low >=60 [facility] Comment on above: Performed By: #### C MP ####[facility] Nmcudsccqj1132 [place] [id number]. Anjali Reagan EGFR-NON AF [place] 48 mL/min/1.73m2 Critically low >=60 [facility] Comment on above: Performed By: #### C MP ####[facility] Xjuzlelczb4772 [place] [id number]. Anjali Reagan Globulin (S) [Mass/Vol] 4.2 g/dL Normal [facility] Comment on above: Performed By: #### C MP ####[facility] Ddqeshxphp4553 [place] [phone]. Anjali Reagan Glucose [Mass/Vol] 276 mg/dL Critically high 74-106 [facility] Comment on above: Performed By: #### C MP ####[facility] Adrwmwxber5061 [place] [phone]. Anjali Tez Potassium [Moles/Vol] 4.5 mmol/L Normal 3.4-5.0 [facility] Comment on above: Performed By: #### C MP ####[facility] Gdenabbemr[address] [place], [place] [address]Dr. Anjali Tez Protein [Mass/Vol] 7.0 g/dL Normal 6.1-8.2 [facility] Comment on above: Performed By: #### C MP ####[facility] Titzhiddqj[address] [place] [address]Dr. Anjali Reagan Sodium [Moles/Vol] 136 mmol/L Critically low 137-145 [facility] Comment on above: Performed By: #### C MP ####[facility] Hgepwzecag9657 [place] [id number]. Anjali Tez Urea nitrogen [Mass/Vol] 42.0 mg/dL Critically high 9.0-20 .0 [facility] Comment on above: Performed By: #### C MP ####[facility] Chghqqqqul[address] [place], [place] [address]Dr. Biancaramona Tez Urea nitrogen/Creatinine [Mass ratio] 28.2 mg/mg Normal [facility] Comment on above: Performed By: #### C MP ####[facility] Xflisppymn5986 [place] [address]Dr. Biancaramona Reagan RPR QUANTon 02-09-2021 Rapid Plasma Reagin, Quant Non-Reactive Normal NonRea<1:1 [facility] Comment on above: Performed By: #### R PRQ ####[facility] Ltwetylpex[address] [place], [place] [address]Dr. Biancaramona Tez XR ANKLE RT 2Von 02-09-2021 XR ANKLE RT 2V Normal The [facility] XR TIB_FIB RT 2Von XR TIB_FIB RT 2V Normal The [facility] CRPon 02-08-2021 CRP 3.2 mg/dL Critically high <=1.0 The [facility] Comment on above: Performed By: #### C RP ####[facility] Kdihgbvotr8[address] [place], [place] [address]Dr. Biancaramona Tez CULTURE ANAEROBICon 02-09-20 21 CULTURE ANAEROBIC Specimen Comments: RIGHT FOOT IRRIGATION SWAB Culture Observations: NO GROWTH AT 72 HRS Normal [facility] Comment on above: Performed By: #### A NACX ####[facility] Pgjeetzcbs05[address] [place], [place] [address]Dr. Biancaramona Reagan CULTURE ANAEROBIC Specimen Comments: RIGHT LEG REAMINGS Culture Observations: NO GROWTH OF ANAEROBES AT 72 HOURS. Normal [facility] Comment on above: Performed By: #### A NACX ####[facility] Fwuwpavmkt85[address] [place], [place] [address]Dr. Anjali Reagan CULTURE ANAEROBIC Culture Observations : NO GROWTH AT 72 HRS Normal The [facility] Comment on above: Performed By: #### A NACX ####[facility] Fdhinqqhqu3989[address] [place], [place] [address]Dr. Anjali Reagan CULTURE ANAEROBIC Specimen Comments: RIGHT TIBIA BONE Culture Observations: NO GROWTH AT 72 HRS Normal [facility] Comment on above: Performed By: #### A NACX ####[facility] Xanxodrrcb9711[address] [place], [place] [address]Dr. Yilan Reagan CULTURE ANAEROBIC Specimen Comments: RIGHT CALCANEOUS BONE Culture Observations: NO GROWTH OF ANAEROBES AT 72 HOURS. Normal [facility] Comment on above: Performed By: #### A NACX ####[facility] Wdwihkuifu912[address] [place], [place] [address]Dr. Yilan Reagan CULTURE ANAEROBIC Specimen Comments: RIGHT ANKLE ABSCESS Culture Observations: NO GROWTH AT 72 HRS [facility] Comment on above: Performed By: #### A NACX ####[facility] Kpxtquuesw164[address] [place], [place] [address]Dr. Yilan Reagan CULTURE OTHERon 02-08-2021 CULTURE OTHER Specimen Comments: RIGHT LEG REAMINGS Culture Observations: NORMAL SKIN ARELI. [facility] Comment on above: Performed By: #### O THCX ####[facility] Xdstgabpyi3456[address] [place], [place] [address]Dr. Yilan Reagan CULTURE OTHER Specimen Comments: RIGHT FOOT IRRIGATION SWAB Culture Observations: NO GROWTH AT 72 HRS [facility] Comment on above: Performed By: #### O THCX ####[facility] Ijtjrpmqso287[address] [place], [place] [address]Dr. Yilan Reagan CULTURE OTHER Specimen Comments: RIGHT CALCANEOUS BONE Culture Observations: NORMAL SKIN ARELI. [facility] Comment on above: Performed By: #### O THCX ####[facility] Tducfxzbfh8399[address] [place], [place] [address]Dr. Yilan Reagan CULTURE OTHER Specimen Comments: RIGHT TIBIA BONE Culture Observations: NO GROWTH AT 72 HRS [facility] Comment on above: Performed By: #### O THCX ####[facility] Vvsoqvxpqn9[address] [place], [place] [address]Dr. Yilan Reagan CULTURE OTHER Specimen Comments: RIGHT TALUS BONE Culture Observations: NORMAL SKIN ARELI. [facility] Comment on above: Performed By: #### O THCX ####[facility] Qrrwdrfyav25[address] [place], [place] [address]Dr. Yilan Reagan CULTURE OTHER Specimen Comments: RIGHT ANKLE ABSCESS Culture Observations: NO GROWTH AT 72 HRS [facility] Comment on above: Performed By: #### O THCX ####[facility] Kkwdsinebo317[address] [place], [place] [address]Dr. Anjali Reagan GRAM STAINon 02-08-2021 COMMENTS NO ORGANISMS OBSERVED Normal The [facility] Comment on above: Performed By: #### G STAIN ####[facility] Uuqecropxv0[address] [place] [address]Dr. Anjali Reagan DIPHTHEROIDS Normal The [facility] Comment on above: Performed By: #### G STAIN ####[facility] Ltflkaypsg1802 [place] [address]Dr. Anjali Reagan EPITHELIALS Normal The [facility] Comment on above: Performed By: #### G STAIN ####[facility] Cpcqmenpnu549[address] [place] [address]Dr. Anjali Reagan FUNGAL ELEMENTS Normal The [facility] Comment on above: Performed By: #### G STAIN ####[facility] Oswdjribav8[address] [place], [place] [address]Dr. Anjali Reagan GRAM NEG BACILLI Normal The [facility] Comment on above: Performed By: #### G STAIN ####[facility] Gnfsdkczqf30[address] [place], [place] [address]Dr. Anjali Reagan GRAM NEG DIPPLOCOCCI Normal The [facility] Comment on above: Performed By: #### G STAIN ####[facility] Xvwspsoxyw0[address] [place], [place] [address]Dr. Anjali Reagan GRAM POS BACILLI Normal The [facility] Comment on above: Performed By: #### G STAIN ####[facility] Vyxitsmiuw68[address] [place], [place] [address]Dr. Anjali Reagan GRAM POSITIVE COCCI Normal The [facility] Comment on above: Performed By: #### G STAIN ####[facility] Dzjqrhbpre80[address] [place] [address]Dr. Anjali Reagan GRAM STAIN SOURCE RIGHT LEG REAMINGS Normal The [facility] Comment on above: Performed By: #### G STAIN ####[facility] Qtedvufrmq29[address] [place], [place] [address]Dr. Anjali Reagan GRAM STAIN SOURCE RIGHT FOOT POST IRRIGATION SWAB Normal [facility] Comment on above: Performed By: #### G STAIN ####[facility] Dqkhispfob69[address] [place], [place] [address]Dr. Anjali Reagan GS_DIPTH Normal [facility] Comment on above: Performed By: #### G STAIN ####[facility] Rfwmutvski69[address] [place] [address]Dr. Anjali Reagan WBC MODERATE Normal [facility] Comment on above: Performed By: #### G STAIN ####[facility] Ewnpfvqlnp60[address] [place] [address]Dr. Anjali Reagan WBC NONE SEEN Normal [facility] Comment on above: Performed By: #### G STAIN ####[facility] Oklcxykrbq79[address] [place] [address]Dr. Anjali Reagan COMMENTS NO ORGANISMS OBSERVED Normal [facility] Comment on above: Performed By: #### G STAIN ####[facility] Oynmrkldjv[address] [place] [address]Dr. Anjali Reagan DIPHTHEROIDS Normal [facility] Comment on above: Performed By: #### G STAIN ####[facility] Ezmpegtwnb9[address] [place] [address]Dr. Anjali Reagan EPITHELIALS Normal [facility] Comment on above: Performed By: #### G STAIN ####[facility] Wphtivszkk7636 [place] [address]Dr. Anjali Reagan FUNGAL ELEMENTS Normal The [facility] Comment on above: Performed By: #### G STAIN ####[facility] Vhdajqcpzi9467 [place] [address]Dr. Anjali Reagan GRAM NEG BACILLI Normal The [facility] Comment on above: Performed By: #### G STAIN ####[facility] Xvtrkezpnr4507 [place] [address]Dr. Anjali Reagan GRAM NEG DIPPLOCOCCI Normal The [facility] Comment on above: Performed By: #### G STAIN ####[facility] Luzbgjkois85[address] [place] [address]Dr. Anjali Reagan GRAM POS BACILLI Normal [facility] Comment on above: Performed By: #### G STAIN ####[facility] Cowlpnmliq500[address] [place] [address]Dr. Anjali Reagan GRAM POSITIVE COCCI Normal The [facility] Comment on above: Performed By: #### G STAIN ####[facility] Uyoaqjtxtw8734 [place] [phone]. Anjali Reagan GRAM STAIN SOURCE RIGHT TIBIA BONE Normal [facility] Comment on above: Performed By: #### G STAIN ####[facility] Zgulbymbqz6113 [place] [phone]. Anjali Reagan GRAM STAIN SOURCE RIGHT CALCANEOUS BONE Normal [facility] Comment on above: Performed By: #### G STAIN ####[facility] Ffwqvdlsbq2121 [place] [address]Dr. Anjali Reagan GRAM STAIN SOURCE RIGHT TALUS BONE Normal [facility] Comment on above: Performed By: #### G STAIN ####[facility] Glpqkebqzt6060 [place] [address]Dr. Anjali Reagan GS_DIPTH Normal [facility] Comment on above: Performed By: #### G STAIN ####[facility] Xtzqqdbydo2043 [place] [address]Dr. Anjali Reagan WBC NONE SEEN Normal [facility] Comment on above: Performed By: #### G STAIN ####[facility] Nglydvmamn2498 [place] [address]Dr. Anjali Reagan WBC FEW Normal [facility] Comment on above: Performed By: #### G STAIN ####[facility] Qlfjigszud6028 [place] [address]Dr. Anjali Reagan COMMENTS NO ORGANISMS OBSERVED Normal [facility] Comment on above: Performed By: #### G STAIN ####[facility] Puszrvxndq2228 [place] [address]Dr. Anjali Reagan DIPHTHEROIDS Normal [facility] Comment on above: Performed By: #### G STAIN ####[facility] Fpwtmlduju0666 [place] [address]Dr. Anjali Reagan EPITHELIALS Normal [facility] Comment on above: Performed By: #### G STAIN ####[facility] Rdpmcoskvh1602 [place] [address]Dr. Anjali Reagan FUNGAL ELEMENTS Normal The [facility] Comment on above: Performed By: #### G STAIN ####[facility] Aqglqjsqbt3428 [place] [phone]. Anjali Reagan GRAM NEG BACILLI Normal [facility] Comment on above: Performed By: #### G STAIN ####[facility] Txijaessnj5622 [place] [address]Dr. Anjali Reagan GRAM NEG DIPPLOCOCCI Normal [facility] Comment on above: Performed By: #### G STAIN ####[facility] Slbpgohvwm9502 [place] [address]Dr. Anjali Reagan GRAM POS BACILLI Normal [facility] Comment on above: Performed By: #### G STAIN ####[facility] Bgmozzsqxy169[address] [place], [place] [address]Dr. Anjali Reagan GRAM POSITIVE COCCI Normal The [facility] Comment on above: Performed By: #### G STAIN ####[facility] Danwvxufli59[address] [place], [place] [address]Dr. Anjali Reagan GRAM STAIN SOURCE RIGHT FOOT ABSCESS SWAB Normal [facility] Comment on above: Performed By: #### G STAIN ####[facility] Aycvnhllop2499 [place] [address]Dr. Anjali Reagan GS_DIPTH Normal [facility] Comment on above: Performed By: #### G STAIN ####[facility] Gmykfxjsly6114 [place] [address]Dr. Anjali Reagan WBC RARE Normal [facility] Comment on above: Performed By: #### G STAIN ####[facility] Jrmfeoxaux7201[address] [place], [place] [address]Dr. Anjali Reagan HIV 1/2 RAPID (EXPOSURE ONLY )on 02-08-2021 HIV AB Negative Normal [facility] Comment on above: Performed By: #### R PDHIV ####[facility] Hgvvnodccx99[address] [place], [place] [address]Dr. Anjali Reagan HIV AG Negative Normal [facility] Comment on above: Performed By: #### R PDHIV ####[facility] Cvhncdsbcw966[address] [place], [place] [address]Dr. Anjali Reagan INTERNAL CONTROLS Within Normal Limits Normal Wi thin Normal Limits [facility] Comment on above: Performed By: #### R PDHIV ####[facility] Jutdrxeggk3796 [place] [address]Dr. Anjali Reagan RAPID HIV INFO SEE BELOW Normal [facility] Comment on above: Result Comment: This test is used for the initial screening of the exposure source. Confirmation of all results will be obtained through reference lab testing. Performed By: #### R PDHIV ####[facility] Jpoleyygdr8905 [place] [address]Dr. Anjali Reagan POINT OF CARE GLUCOSEon 11-0 Glucose [Mass/Vol] 400 mg/dL Critically high 74-106 [facility] Comment on above: Performed By: #### P OCGLUC ####[facility] Svrcqwtofj[address] [place], [place] [address]Dr. Anjali Reagan Glucose [Mass/Vol] 373 mg/dL Critically high 74-106 [facility] Comment on above: Performed By: #### P OCGLUC ####[facility] Wlgikpgqek3536[address] [place], [place] [address]Dr. Anjali Reagan Glucose [Mass/Vol] 159 mg/dL Critically high 74-106 [facility] Comment on above: Performed By: #### P OCGLUC ####[facility] Uoucelqlez[address] [place], [place] [address]Dr. Anjali Reagan Glucose [Mass/Vol] 160 mg/dL Critically high 74-106 [facility] Comment on above: Performed By: #### P OCGLUC ####[facility] Kzeiffavqz9537[address] [place], [place] [address]Dr. Anjali Reagan SED RATE WESTERGRENon 2020 SED RATE 51 mm/hr Critically high <=20 [facility] Comment on above: Performed By: #### S EDR ####[facility] Mbvstanzkh4273[address] [place], [place] [address]Dr. Anjali Reagan CBC W MANUAL DIFFon 02-06-20 21 ATYPICAL LYMPH # Normal [facility] Comment on above: Performed By: #### C BCMAN ####[facility] Hylxbyynrg[address] [place], [place] [address]Dr. Anjali Reagan ATYPICAL LYMPH % Normal [facility] Comment on above: Performed By: #### C BCMAN ####[facility] Qvmlxvyxcq1972 [place] [id number]. Yilan Reagan BAND # 0.2 103/ul Normal 0.0-0.3 [facility] Comment on above: Performed By: #### C BCMAN ####[facility] Azcbtaqtmj6873 [place] [address]Dr. Yilan Reagan BAND % 3 % Normal 0-5 [facility] Comment on above: Performed By: #### C BCMAN ####[facility] Wrpjgnmxrn3980 [place] [address]Dr. Yiramona Reagan BASOM # 0.07 103/ul Normal 0.00-0.10 [facility] Comment on above: Performed By: #### C BCMAN ####[facility] Hdplkipfav8[address] [place], [place] [address]Dr. Yiramona Reagan BASOM % 1.0 % Normal 0.2-2.0 [facility] Comment on above: Performed By: #### C BCMAN ####[facility] Cthndjjbxt9769 [place] [address]Dr. Yilan Reagan BLAST # Normal [facility] Comment on above: Performed By: #### C BCFIONA ####[facility] Xhdvoetkqx9910 [place] [address]Dr. Yilan Reagan BLAST % Normal [facility] Comment on above: Performed By: #### C BCFIONA ####[facility] Ovqsuhhltb3675 [place] [phone]. Anjali Reagan CORRECTED WBC Normal 4.0-11.0 The [facility] Comment on above: Performed By: #### C BCMAN ####[facility] Xykayjioqc[address] [place], [place] [address]Dr. Yilan Reagan EOS # 0.57 103/ul Normal 0.00-0.70 [facility] Comment on above: Performed By: #### C BCMAN ####[facility] Yharoanosw18[address] [place], [place] [address]Dr. Anjali Reagan EOS% 8.0 % Critically high 0.9-7.0 The [facility] Comment on above: Performed By: #### C CORI ####[facility] Bnmvkbteue9623 [place] [phone]. Anjali Reagan HCT 32.9 % Critically low 42.0-54.0 The [facility] Comment on above: Performed By: #### C CORI ####[facility] Njjawaeihh6472 [place] [phone]. Anjali Reagan HGB 10.2 g/dl Critically low 14.0-18.0 The [facility] Comment on above: Performed By: #### C CORI ####[facility] Mmucttkqtx5560 [place] [address]Dr. Anjali Reagan LYMPHM # 0.78 103/ul Critically low 1.20-3.80 [facility] Comment on above: Performed By: #### C CORI ####[facility] Rwwztlylxf4310 [place] [address]Dr. Anjali Reagan LYMPHM% 11.0 % Critically low 20.5-60.0 The [facility] Comment on above: Performed By: #### C CORI ####[facility] Truaebhovb1813 [place] [address]Dr. Anjali Reagan MCH 24.9 pg Critically low 25.9-34.0 The [facility] Comment on above: Performed By: #### C CORI ####[facility] Ttpsisgdac6150 [place] [phone]. Anjali Reagan MCHC 31.0 g/dl Normal 29.9-35.2 [facility] Comment on above: Performed By: #### C CORI ####[facility] [address]znuibxlb[address] [place], [place] [address]Dr. Anjali Reagan MCV 80.4 fL Normal 80.0-94.0 [facility] Comment on above: Performed By: #### C CORI ####[facility] Cuhqpgztka7241 [place] [phone]. Anjali Reagan METAMYELOCYTE # Normal The [facility] Comment on above: Performed By: #### C CORI ####[facility] Cmmrploskb9164 [place] [phone]. Anjali Reagan METAMYELOCYTE % Normal [facility] Comment on above: Performed By: #### C CORI ####[facility] Crusjppqey0776 [place] [phone]. Anjali Reagan MONOM# 0.57 103/ul Normal 0.30-0.80 [facility] Comment on above: Performed By: #### C CORI ####[facility] Apvqrygcsi4344 [place] [phone]. Anjali Reagan MONOM% 8.0 % Normal 1.7-12.0 [facility] Comment on above: Performed By: #### C CORI ####[facility] Iwfhrruqoz5119 [place] [address]Dr. Anjali Tez MPV 9.2 fL Critically low 9.5-13.5 [facility] Comment on above: Performed By: #### C CORI ####[facility] Nzuqbllavf55[address] [place] [address]Dr. Anjali Reagan MYELOCYTE # Normal [facility] Comment on above: Performed By: #### C CORI ####[facility] Bokdtebxpu9727 [place] [phone]. Anjali Reagan MYELOCYTE % Normal [facility] Comment on above: Performed By: #### Uzair PERSAUD ####[facility] Ciokaixszl3802 [place] [address]Dr. Anjali Reagan NRBC Normal [facility] Comment on above: Performed By: #### Uzair PERSAUD ####[facility] Wlgfyhjjab0883 [place] [address]Dr. Anjlai Tez OVALOCYTES 1+ Normal [facility] Comment on above: Performed By: #### C CORI ####[facility] Oqmjkjyqvb4417 [place] [phone]. Anjali Reagan PLT 209 103/ul Normal 150-450 [facility] Comment on above: Performed By: #### C CORI ####[facility] Twragwbwfl7429 [place], [place] [address]Km. Anjali Reagan RBC 4.09 106/ul Critically low 4.70-6.10 [facility] Comment on above: Performed By: #### C CORI ####[facility] Rgmkcwobwu2579 [place], [place] [address]Km. Anjali Reagan RDW 18.2 % Critically high 11.0-15.0 [facility] Comment on above: Performed By: #### C CORI ####[facility] Wkbmdwjfrs3233 [place], [place] [address]Kz. Anjali Reagan SEG # 4.90 103/ul Normal 1.40-6.50 [facility] Comment on above: Performed By: #### C CORI ####[facility] Uldjivjsln6888 [place], [place] [address]Cq. Anjali Reagan SEG % 69.0 % Normal 43.0-75.0 [facility] Comment on above: Performed By: #### C CORI ####[facility] Ciuukjaili6140 [place], [place] [address]Pi. Anjali Reagan WBC 7.1 103/ul Normal 4.0-11.0 [facility] Comment on above: Performed By: #### C CORI ####[facility] Micaiuatse5950 [place], [place] [address]Bt. Anjali Reagan CT ABD/PELVIS WO CONon 02-05 CT ABD/PELVIS WO CON Normal [facility] Covid-19 PCR (CVDTBH)on SARS-CoV-2 (COVID-19) RNA MEREDITH+probe Ql (Unsp spec) Not detected Normal NOT DETECTED [facility] Comment on above: Result Comment: This test is not yet approved or cleared by the [place] FDA. When there are no FDA-approved or cleared tests available, and other criteria are met, FDA can make tests available under an emergency access mechanism called an Emergency Use Authorization (EUA). The EUA for this test is supported by the [employer] of Health and Human Service's (HHS's) declaration [...] with SARS-CoV-2. Performed By: #### C VDTB ####[facility] Xelswtlvmx[address] [place], [place] [address]Dr. Anjali Reagan ER URINE PROFILEon 1 Bilirubin Ql (U) Negative Normal NEGATIVE The [facility] Comment on above: Performed By: #### E RUR ####[facility] Pecboahsgi24[address] [place], [place] [address]Dr. Anjali Reagan Clarity (U) CLEAR Normal CLEAR [facility] Comment on above: Performed By: #### E RUR ####[facility] Uxcsphnbgs[address] [place], [place] [address]Dr. Anjali Reagan Color (U) LT. YELLOW Normal YELLOW [facility] Comment on above: Performed By: #### E RUR ####[facility] Axvdlhknyu55[address] [place], [place] [address]Dr. Anjali Reagan ERUAHD A micrscopic examination will be performed if indicated. Normal [facility] Comment on above: Performed By: #### E RUR ####[facility] Ktvbhuangg[address] [place], [place] [address]Dr. Anjali Reagan Glucose Ql (U) Negative Normal NEGATIVE The [facility] Comment on above: Performed By: #### E RUR ####[facility] Gqoritwxmr79[address] [place], [place] [address]Dr. Anjali Reagan Hemoglobin Ql (U) Negative Normal NEGATIVE The [facility] Comment on above: Performed By: #### E RUR ####[facility] Cydmawtelv38[address] [place], [place] [address]Dr. Anjali Reagan Ketones Ql (U) Negative Normal NEGATIVE The [facility] Comment on above: Performed By: #### E RUR ####[facility] Hnilwmjpbl9213 [place] [address]Dr. Anjali Reagan LEUKOCYTES Negative Normal NEGATIVE [facility] Comment on above: Performed By: #### E RUR ####[facility] [address] [place] [address]Dr. Anjali Reagan Nitrite Ql (U) Negative Normal NEGATIVE The [facility] Comment on above: Performed By: #### E RUR ####[facility] [address] [place] [address]Dr. Anjali Reagan pH (U) 6.0 [pH] Normal 5-9 [facility] Comment on above: Performed By: #### E RUR ####[facility] W[address]bc[address] [place], [place] [address]Dr. Anjali Reagan SPEC GRAVITY 1.015 Normal 1.005-<=1.[address] [place] [address] Comment on above: Performed By: #### E RUR ####[facility] Xbqyidzngf[address] [place], [place] [address]Dr. Anjali Reagan UA PROTEIN TRACE Normal NEGATIVE/ TRACE The [facility] Comment on above: Performed By: #### E RUR ####[facility] Owwkgmlkgh[address] [place], [place] [address]Dr. Anjali Reagan UR MICRO IND NOT INDICATED Normal The [facility] Comment on above: Performed By: #### E RUR ####[facility] Dhxwbknhfc[address] [place], [place] [address]Dr. Anjali Reagan Urobilinogen Qn (U) 0.2 {Geremias'U}/dL Normal 0.2 - 1. 0 [facility] Comment on above: Performed By: #### E RUR ####[facility] Xkcvmwrbye[address] [place], [place] [address]DrVeronica Reagan PROF 14(COMP METB)on 021 Albumin [Mass/Vol] 2.8 g/dL Critically low 3.5-5.0 [facility] Comment on above: Performed By: #### C MP ####[facility] [address] [place] [id number]. Anjali Reagan Albumin/Globulin [Mass ratio] 0.6 {ratio} Normal [facility] Comment on above: Performed By: #### C MP ####[facility] [address] [place] [phone]. Anjali Reagan ALP [Catalytic activity/Vol] 125 U/L Normal 38-126 [facility] Comment on above: Performed By: #### C MP ####[facility] Huewzjogpv[address] [place], [place] [address]Dr. Anjali Tez ALT [Catalytic activity/Vol] 22 U/L Normal 21-72 [facility] Comment on above: Performed By: #### C MP ####[facility] Jznntejxov[address] [place], [place] [address]Dr. Anjali Tez Anion gap [Moles/Vol] 13.1 mmol/L Normal [facility] Comment on above: Performed By: #### C MP ####[facility] Pazesbkgjd[address] [place], [place] [address]Dr. Anjali Tez AST [Catalytic activity/Vol] 26 U/L Normal 17-59 [facility] Comment on above: Performed By: #### C MP ####[facility] T[address]tuvxdky[address] [place], [place] [address]Dr. Anjali Tez Bilirubin [Mass/Vol] 0.8 mg/dL Normal 0.2-1.3 [facility] Comment on above: Performed By: #### C MP ####[facility] [address]hz[address] [place], [place] [address]Dr. Anjali Tez Calcium [Mass/Vol] 9.2 mg/dL Normal 8.4-10.2 [facility] Comment on above: Performed By: #### C MP ####[facility] Duphmpporx55[address] [place], [place] [address]Dr. Biancaramona Tez Chloride [Moles/Vol] 98 mmol/L Normal 98-107 [facility] Comment on above: Performed By: #### C MP ####[facility] [address] [place] [address]Dr. Anjali Reagan CO2 [Moles/Vol] 28.7 mmol/L Normal 22.0-30.0 [facility] Comment on above: Performed By: #### C MP ####[facility] [address] [place] [address]Dr. Anjali Reagan Creatinine [Mass/Vol] 1.62 mg/dL Critically high 0.66-1.25 [facility] Comment on above: Performed By: #### C MP ####[facility] Vgauhabtmt[address] [place], [place] [address]Dr. Anjali Reagan EGFR-AF [place] 52 mL/min/1.73m2 Critically low >=60 [facility] Comment on above: Performed By: #### C MP ####[facility] Fjsdnybvhe[address] [place], [place] [address]Dr. Anjali Reagan EGFR-NON AF [place] 43 mL/min/1.73m2 Critically low >=60 [facility] Comment on above: Performed By: #### C MP ####[facility] Llnbrsikfg[address] [place], [place] [address]Dr. Anjali Reagan Globulin (S) [Mass/Vol] 4.6 g/dL Normal [facility] Comment on above: Performed By: #### C MP ####[facility] Siwyepsxcg2225[address] [place], [place] [address]Dr. Anjali Reagan Glucose [Mass/Vol] 192 mg/dL Critically high 74-106 [facility] Comment on above: Performed By: #### C MP ####[facility] Toepwdfvqq[address] [place], [place] [address]Dr. Anjali Reagan Potassium [Moles/Vol] 4.8 mmol/L Normal 3.4-5.0 [facility] Comment on above: Performed By: #### C MP ####[facility] Daaxvvmkyx6[address] [place], [place] [address]Dr. Anjali Reagan Protein [Mass/Vol] 7.4 g/dL Normal 6.1-8.2 [facility] Comment on above: Performed By: #### C MP ####[facility] [address] [place] [id number]. Anjali Reagan Sodium [Moles/Vol] 135 mmol/L Critically low 137-145 [facility] Comment on above: Performed By: #### C MP ####[facility] [address] [place] [address]Dr. Anjali Reagan Urea nitrogen [Mass/Vol] 40.0 mg/dL Critically high 9.0-20 .0 [facility] Comment on above: Performed By: #### C MP ####[facility] [address]hecpbl[address] [place], [place] [address]Dr. Anjali Reagan Urea nitrogen/Creatinine [Mass ratio] 24.7 mg/mg Normal [facility] Comment on above: Performed By: #### C MP ####[facility] Nplsdflchv[address] [place], [place] [address]Dr. Anjali Reagan PROF CHEM 8 (BAS METB)on Anion gap [Moles/Vol] 13.4 mmol/L Normal [facility] Comment on above: Performed By: #### B MP ####[facility] [address] [place] [address]Dr. Anjali Reagan Calcium [Mass/Vol] 9.3 mg/dL Normal 8.4-10.2 [facility] Comment on above: Performed By: #### B MP ####[facility] Nrkwrggfgv[address] [place], [place] [address]Dr. Anjali Reagan Chloride [Moles/Vol] 98 mmol/L Normal 98-107 [facility] Comment on above: Performed By: #### B MP ####[facility] [address] [place] [phone]. Anjali Reagan CO2 [Moles/Vol] 28.8 mmol/L Normal 22.0-30.0 [facility] Comment on above: Performed By: #### B MP ####[facility] [address] [place], [place] [address]Dr. Anjali Reagan Creatinine [Mass/Vol] 1.72 mg/dL Critically high 0.66-1.25 [facility] Comment on above: Performed By: #### B MP ####[facility] [address] [place] [phone]. Anjali Reagan EGFR-AF [place] 49 mL/min/1.73m2 Critically low >=60 [facility] Comment on above: Performed By: #### B MP ####[facility] [address] [place] [id number]. Anjali Reagan EGFR-NON AF [place] 40 mL/min/1.73m2 Critically low >=60 [facility] Comment on above: Performed By: #### B MP ####[facility] R[address]jlery[address] [place] [phone]. Anjali Reagan Glucose [Mass/Vol] 204 mg/dL Critically high 74-106 [facility] Comment on above: Performed By: #### B MP ####[facility] [address] [place] [address]Dr. Anjali Reagan Potassium [Moles/Vol] 4.2 mmol/L Normal 3.4-5.0 [facility] Comment on above: Performed By: #### B MP ####[facility] [address] [place], [place] [address]Dr. Anjali Reagan Sodium [Moles/Vol] 136 mmol/L Critically low 137-145 [facility] Comment on above: Performed By: #### B MP ####[facility] Vxof[address]qi[address] [place], [place] [address]Dr. Anjali Reagan Urea nitrogen [Mass/Vol] 35.0 mg/dL Critically high 9.0-20 .0 [facility] Comment on above: Performed By: #### B MP ####[facility] [address] [place] [id number]. Anjali Reagan Urea nitrogen/Creatinine [Mass ratio] 20.3 mg/mg Normal [facility] Comment on above: Performed By: #### B MP ####[facility] T[address]xby[address] [place] [id number]. Anjali Reagan CT ANKLE RT WO CONon 021 CT ANKLE RT WO CON Normal [facility] XR ANKLE RT MIN 3 VIEWSon XR ANKLE RT MIN 3 VIEWS Normal [facility] XR ANKLE RT MIN 3 VIEWSon XR ANKLE RT MIN 3 VIEWS Normal T [facility] Otolaryngology Office/Clinic Noteon 01-19-2021 Otolaryngology Office/Clinic [...] Dr. Freed. Previous pathology by physician in [place] about 1 year ago. PMHx of multiple [...] 2. Basal (more content not included)... Normal [facility] BASIC METABOLIC PANEL W/O CA on 01-15-2021 Chloride [Moles/Vol] 98 mmol/L Normal 98-110 [facility] Comment on above: Order Comment: FASTI NG:YESFASTING: YES Performed By: #### 1 0169, 304, 236 #### [facility] [address], [address] [place] [address] [employer]: Juan Meraz MD CO2 [Moles/Vol] 26 mmol/L Normal 20-32 [facility] Comment on above: Order Comment: FASTI NG:YESFASTING: YES Performed By: #### 1 0167, 354, 236 #### [facility] [address], [address] [place] [address] [employer]: Juan Meraz MD Creatinine [Mass/Vol] 1.71 mg/dL High 0.70-1.[address] [facility] [address] [facility] [address] [facility] Comment on above: Order Comment: FASTI NG:YESFASTING: YES Result Comment: For patients >49 years of age, the reference limit for Creatinine is approximately 13% higher for people identified as -Ethiopian. Performed By: #### 1 0161, 569, 875 #### [facility] [address], [address] [place] [address] [employer]: uJan Meraz MD eGFR NON-AFR. [place] 42 mL/min/1.73m2 Low > OR = 60 [facility] Comment on above: Order Comment: FASTI NG:YESFASTING: YES Performed By: #### 1 0165, 496, 905 #### [facility] [place] [address] [employer]: Juan Meraz MD GFR/1.73 sq M.predicted among blacks MDRD (S/P/Bld) [Vol rate/Area] 48 mL/min/{1.73_m2} Low > OR = 60 [facility] Comment on above: Order Comment: FASTI NG:YESFASTING: YES Performed By: #### 1 0165, 496, 905 #### [facility] [place] [address] [employer]: Juan Meraz MD Glucose [Mass/Vol] 186 mg/dL High 65-99 [facility] Comment on above: Order Comment: FASTI NG:YESFASTING: YES Result Comment: Fasting reference interval For someone without known diabetes, a glucose value >125 mg/dL indicates that they may have diabetes and this should be confirmed with a follow-up test. Performed By: #### 1 0165, 495, 905 #### [facility] [place] [address] [employer]: Juan Meraz MD Potassium [Moles/Vol] 4.3 mmol/L Normal 3.5-5.[address] [facility] [address] [facility] Comment on above: Order Comment: FASTI NG:YESFASTING: YES Performed By: #### 1 0165, 496, 905 #### [facility] [address], [address] [place] [address] [employer]: Juan Meraz MD Sodium [Moles/Vol] 137 mmol/L Normal 135-146 [facility] Comment on above: Order Comment: FASTI NG:YESFASTING: YES Performed By: #### 1 0165, 496, 905 #### [facility] [place] [address] [employer]: Juan Meraz MD Urea nitrogen [Mass/Vol] 34 mg/dL High 7-25 [facility] Comment on above: Order Comment: FASTI NG:YESFASTING: YES Performed By: #### 1 0165, 496, 905 #### [facility] [place] [address] [employer]: Juan Meraz MD Urea nitrogen/Creatinine [Mass ratio] 20 mg/mg Normal 6-22 [facility] Comment on above: Order Comment: FASTI NG:YESFASTING: YES Performed By: #### 1 0165, 496, 905 #### [facility] [place] [address] [employer]: Juan Meraz MD CBC (INCLUDES DIFF/PLT)on Basophils (Bld) [#/Vol] 0.026 10*3/uL Normal 0-200 [facility] Comment on above: Performed By: #### 1 0165, 496, 905 #### [facility] [place] [address] [employer]: Juan Meraz MD Basophils/100 WBC (Bld) 0.3 % Normal [facility] Comment on above: Performed By: #### 1 0165, 496, 905 #### [facility] [place] [address] [employer]: Juan Meraz MD Eosinophils (Bld) [#/Vol] 0.202 10*3/uL Normal 15-500 [facility] Comment on above: Performed By: #### 1 0165, 496, 905 #### [facility] [place] [address] [employer]: Juan Meraz MD Eosinophils/100 WBC (Bld) 2.3 % Normal [facility] Comment on above: Performed By: #### 1 0165, 496, 905 #### [facility] [place] [address] [employer]: Juan Meraz MD Erythrocyte distribution width (RBC) [Ratio] 15.7 % High 11.0-15.0 [facility] Comment on above: Performed By: #### 1 5, 496, 905 #### [facility] [place] [address] [employer]: Juan Meraz MD Hematocrit (Bld) [Volume fraction] 34.9 % Low 38.5-50.0 [facility] Comment on above: Performed By: #### 1 0165, 496, 905 #### [facility] [place] [address] [employer]: Juan Meraz MD Hemoglobin (Bld) [Mass/Vol] 10.9 g/dL Low 13.2-17.1 [facility] Comment on above: Performed By: #### 1 164, 496, 905 #### [facility] [place] [address] [employer]: Juan Meraz MD Lymphocytes (Bld) [#/Vol] 0.748 10*3/uL Low 850-3900 [facility] Comment on above: Performed By: #### 1 164, 496, 905 #### [facility] [place] [address] [employer]: Juan Meraz MD Lymphocytes/100 WBC (Bld) 8.5 % Normal [facility] Comment on above: Performed By: #### 1 0165, 49, 905 #### [facility] [place] [address] [employer]: Juan Meraz MD MCH (RBC) [Entitic mass] 25.1 pg Low 27.0-33.0 [facility] Comment on above: Performed By: #### 1 016, 497, 905 #### [facility] of [place] [address] [employer]: Juan Meraz MD MCHC (RBC) [Mass/Vol] 31.2 g/dL Low 32.0-36.[address] [facility] Comment on above: Performed By: #### 1 0165, 496, 905 #### [facility] [place] [address] [employer]: Juan Meraz MD MCV (RBC) [Entitic vol] 80.4 fL Normal 80.0-100.0 [facility] Comment on above: Performed By: #### 1 0165, 496, 905 #### [facility] [place] [address] [employer]: Juan Meraz MD Monocytes (Bld) [#/Vol] 0.889 10*3/uL Normal 200-950 [facility] Comment on above: Performed By: #### 1 0165, 496, 905 #### [facility] [place] [address] [employer]: Juan Meraz MD Monocytes/100 WBC (Bld) 10.1 % Normal [facility] Comment on above: Performed By: #### 1 0165, 496, 905 #### [facility] [place] [address] [employer]: Juan Meraz MD Neutrophils (Bld) [#/Vol] 6.934 10*3/uL Normal 2035-4738 [facility] Comment on above: Performed By: #### 1 0165, 496, 905 #### [facility] [place] [address] [employer]: Juan Meraz MD Neutrophils/100 WBC (Bld) 78.8 % Normal [facility] Comment on above: Performed By: #### 1 0165, 496, 905 #### [facility] [place] [address] [employer]: Juan Meraz MD Platelet mean volume (Bld) [Entitic vol] 9.9 fL Normal 7.5-12.5 [facility] Comment on above: Performed By: #### 1 0165, 496, 905 #### [facility] of [address], [address] [place] [address] [employer]: Juan Meraz MD Platelets (Bld) [#/Vol] 353 10*3/uL Normal 140-400 [facility] Comment on above: Performed By: #### 1 0165, 496, 905 #### [facility] of [address], [address] [place] [address] [employer]: Juan Meraz MD RBC (Bld) [#/Vol] 4.34 10*6/uL Normal 4.20-5.80 [facility] Comment on above: Performed By: #### 1 0165, 496, 905 #### [facility] of [address], [address] [place] [address] [employer]: Juan Meraz MD WBC (Bld) [#/Vol] 8.8 10*3/uL Normal 3.8-10.8 [facility] Comment on above: Performed By: #### 1 0165, 496, 905 #### [facility] of [address], [address] [place] [address] [employer]: Juan Meraz MD Otolaryngology Office/Clinic Noteon 01-14-2021 [...] oral caps (more content not included)... Normal [facility] Otolaryngology Office/Clinic Noteon 01-12-2021 Otolaryngology [...] Dr. Freed. Previous pathology by physician in [place] about 1 year ago. PMHx of multiple [...] separately bill (more content not included)... Normal [facility] Operative Reporton Operative Report Date: January 11, 2021 Preoperative diagnosis: 1) control of bleeding postsurgical Postoperative diagnosis: Same Procedure(s): Bleeding status post left mastoid flap auricular reconstruction Surgeon: Vincent McGinniss, D.O. Anesthesia: Lidocaine 1% with epi 1 [...] by Chirag Gutierrez DO 01/11/21 20:[address] [facility] Operative Report Date: January 11, 2021 [...] this procedure well. Electronically signed by Matt Chirag Romeo 01/11/21 09:28 EDT Normal [facility] POC Glucose Randomon 021 Glucose [Mass/Vol] 211 mg/dL High 70-99 [facility] Comment on above: Performed By: #### C [id number] ####[place] [address] CoV2 [facility] 01-10-2021 Employed in healthcare? Unknown Normal B [facility] Comment on above: Performed By: #### C [id number] ####[place] [address] Group care resident? Unknown Normal [facility] Comment on above: Performed By: #### C [id number] ####[place] [address] In ICU? No Normal [facility] Comment on above: Performed By: #### C [id number] ####[place] [address] status? Not Applicable [facility] Comment on above: Performed By: #### C [id number] ####[place] [address] SARS-CoV-2 (COVID-19) RNA MEREDITH+probe Ql (Unsp spec) Normal Negative [facility] Comment on above: Result [...] Negative ADDITIONAL INFORMATION: Testing performed on the [employer] using the SARS-CoV-2 Antigen test. Results are for the identification of SARS-CoV-2 nucleocapsid antigen. The [employer] SARS-CoV-2 Antigen test can detect both viable and non-viable SARS-CoV-2 material. The [employer] SARS-CoV-2 Antigen test performance depends on antigen [...] test results. In the [place], the [employer] SARS-CoV-2 Antigen test is only for use under the Food and Drug Administration?s Emergency Use Authorization. HCP Fact Sheet: https://www.fda.gov/media/134192/download Patient Fact Sheet: https://www.fda.gov/media/399071/download Performed By: #### C [id number] ####[place] [id number] SARS-CoV-2 (COVID-19) RNA MEREDITH+probe Ql (Unsp spec) Unknown Normal [facility] Comment on above: Performed By: #### C [id number] ####[place] [address] [place] [address] Symptomatic as defined by CDC? Unknown Normal [facility] Comment on above: Performed By: #### C [id number] ####[place] [address] [address] [place] [address] BASIC METABOLIC PANELon 10-0 Calcium [Mass/Vol] 9.6 mg/dL Normal 8.6-10.3 [facility] Comment on above: Performed By: #### 1 0165, 496, 905 #### [facility] [place] [address] [employer]: Juan Meraz MD Chloride [Moles/Vol] 100 mmol/L Normal 98-110 [facility] Comment on above: Performed By: #### 1 0165, 496, 905 #### [facility] [place] [address] [employer]: Juan Meraz MD CO2 [Moles/Vol] 30 mmol/L Normal 20-32 [facility] Comment on above: Performed By: #### 1 0165, 496, 905 #### [facility] [place] [address] [employer]: Juan Meraz MD Creatinine [Mass/Vol] 1.67 mg/dL High 0.70-1.[address] [facility] Comment on above: Result Comment: For patients >49 years of age, the reference limit for Creatinine is approximately 13% higher for people identified as -Ethiopian. Performed By: #### 1 0165, 495, 905 #### [facility] [place] [address] [employer]: Juan Meraz MD eGFR NON-AFR. [place] 43 mL/min/1.73m2 Low > OR = 60 [facility] Comment on above: Performed By: #### 1 016, 496, 905 #### [facility] [place] [address] [employer]: Juan Meraz MD GFR/1.73 sq M.predicted among blacks MDRD (S/P/Bld) [Vol rate/Area] 50 mL/min/{1.73_m2} Low > OR = 60 [facility] Comment on above: Performed By: #### 1 0165, 494, 905 #### [place] [address] [employer]: Juan Meraz MD Glucose [Mass/Vol] 124 mg/dL High 65-99 [facility] Comment on above: Result Comment: Fasting reference interval For someone without known diabetes, a glucose value between 100 and 125 mg/dL is consistent with prediabetes and should be confirmed with a follow-up test. Performed By: #### 1 0165, 496, 905 #### [facility] [address], [address] [place] [address] [employer]: Juan Meraz MD Potassium [Moles/Vol] 4.7 mmol/L Normal 3.5-5.[address] [facility] [address] [facility] [address] [facility] Comment on above: Performed By: #### 1 0165, 496, 905 #### [facility] [place] [address] [employer]: Juan Meraz MD Sodium [Moles/Vol] 138 mmol/L Normal 135-146 [facility] Comment on above: Performed By: #### 1 0165, 496, 905 #### [facility] [place] [address] [employer]: Juan Meraz MD Urea nitrogen [Mass/Vol] 40 mg/dL High 7-25 [facility] Comment on above: Performed By: #### 1 0165, 496, 905 #### [facility] [place] [address] [employer]: Juan Meraz MD Urea nitrogen/Creatinine [Mass ratio] 24 mg/mg High 6-22 [facility] Comment on above: Performed By: #### 1 0165, 496, 905 #### [facility] [place] [address] [employer] Operator: Juan Meraz MD HEMOGLOBIN A1con 12-31-2020 HEMOGLOBIN [...] 1 0165, 496, 905 #### [facility] [address], [address] [place] [address] [employer]: Juan Meraz MD Provider Letteron 12-31-2020 Provider Letter Plastic Surgery & Aesthetics [facility]; Facial Plastic Surgery [address] [place] [address] P: [phone] F: [phone] Chiarg Gutierrez DO [facility] Re: Anai Goodman1955 Date of Visit: 01/05/2021 ATTENTION MEDICAL RECORDS: We are requesting pathology report for biopsy of left ear done within the last 2 years for patient Anai Goodman 59. Thank you, ChiragEwa [facility] Provider Letter Plastic Surgery & Aesthetics [facility]; Facial Plastic Surgery [address] [place] [address] P: [phone] F: [phone] Chirag Gutierrez DO [facility] Re: Anai Goodman1955 Date of Visit: 01/05/2021 ATTENTION MEDICAL RECORDS: We are requesting pathology report for biopsy of left ear done within the last 2 years for patient Anai Goodman. Thank you, ChiragEwa [facility] Provider Letter Plastic Surgery & Aesthetics [facility]; Facial Plastic Surgery [address] [place] [address] P: [phone] F: [phone] Chirag Gutierrez DO [address] [address] Re: Anai Goodman1955 Date of Visit: 01/05/2021 Patient is a mutual patient, referred to us by your office for lesion of his left ear. We are in need of his previous pathology report for this, he returns to our office for biopsy of this lesion on 01/05/21. We would appreciate if you could please fax over this information prior to 01/05/21. Thank you, Muna Normal [facility] URIC ACIDon 12-31-2020 Urate [Mass/Vol] 10.3 mg/dL High 4.0-8.0 [facility] Comment on above: Order Comment: FASTI NG:YES FASTING: YES Result Comment: Ther apeutic target for gout patients: <6.0 mg/dL Performed By: #### 1 0165, 496, 905 #### [facility] [address], [address] [place] [address] Bushing Press Operator: Juan Meraz MD Provider Letteron 12-17-2020 Provider Letter Deon Brito [address] [place] [id number] Re: Anai Goodman Date of Visit: 12/15/2020 Dear Deon Braxton, I am referring Anai to your office for care. Attached your will find my notes and impressions from our visit. Deon Braxton DO Re:Anai Goodman 1955 Date of Visit: 12/15/2020 Dear Deon Braxton DO: I had the pleasure of evaluating patient, Anai Goodman, in the [facility] on 12/15/2020. Attached you will find [...] Gutierrez, DO [facility] [address] [address] Let me know if you have any questions or concerns. Sincerely, Tyesha Saenz Uzair Dunne Providers: The following document(s) were included in the letter: December 15, 2020 13:30:00 EDT - (12/15/2020) Office Visit Note Normal [facility] Otolaryngology Office/Clinic Noteon 12-15-2020 Otolaryngology [...] Dr. Freed. Previous pathology by physician in [place] about 1 year ago. PMHx of multiple [...] mL, 1 Refill(s), 12/18/20 14:00:00 EDT, Pharmacy: [facility] #[id number] Medical Decision Making Chronic conditions NOT treated [...] 5000 intl (more content not included)... Normal [facility] Otolaryngology Office/Clinic Note Chief Complaint [...] Dr. Freed. Previous pathology by physician in [place] about 1 year ago. PMHx of multiple [...] meal to (more content not included)... Normal [facility] XR ANKLE RT MIN 3 VIEWSon XR ANKLE RT MIN 3 VIEWS Normal [facility] XR FOOT RT MIN 3 VIEWSon XR FOOT RT MIN 3 VIEWS Normal [facility] XR FOOT RT MIN 3 VIEWSon XR FOOT RT MIN 3 VIEWS Normal [facility] XR FOOT RT MIN 3 VIEWSon XR FOOT RT MIN 3 VIEWS Normal [facility] Consultation Noteon 05-11-19 21 Consultation Note [id number] .[id number]:[id number] Normal [facility] Vital Signs Date Time Vital Sign Value Performing Clinician Facility 04-12-2023 11:11-0500 Body height 182.9 cm Terry ESCOBEDO Work Phone: [facility] 04-12-2023 11:11-0500 Body mass index (BMI) [Ratio] 28.89 kg/m2 Terry ESCOBEDO Work Phone: [facility] 04-12-2023 11:11-0500 Body weight 96.62 kg Terry ESCOBEDO Work Phone: [facility] 04-12-2023 11:11-0500 Diastolic blood pressure 74 mm[Hg] Terry ESCOBEDO Work Phone: [facility] 04-12-2023 11:11-0500 Heart rate 74 /min Terry Lock APRN-WINE STEWARD Work Phone: [facility] 04-12-2023 11:11-0500 SaO2% (BldA) [Mass fraction] 97 % Terry Lock APRN-WINE STEWARD Work Phone: [facility] 04-12-2023 11:11-0500 Systolic blood pressure 126 mm[Hg] Terry Lock ONLINE AFFILIATE MARKETING MANAGER-WINE STEWARD Work Phone: [facility] 12-05-2022 13:00-0400 Body height 177.8 cm Ghanshyam Kaye Other [facility] Other 12-05-2022 13:00-0400 Diastolic blood pressure 70 mm[Hg] Ghanshyam Kaye Other [facility] Other 12-05-2022 13:00-0400 SaO2% (BldA) [Mass fraction] 97 % Ghanshyam Kaye Other [facility] Other 12-05-2022 13:00-0400 Systolic blood pressure 110 mm[Hg] Ghanshyam Kaye Other [facility] Other 10-05-2022 10:00-0400 Body height 177.8 cm Dung Serna Other [facility] Other 10-05-2022 10:00-0400 Body mass index (BMI) [Ratio] 31.85 kg/m2 Dung Serna Other [facility] Other 10-05-2022 10:00-0400 Body weight 100.7 kg Dung Serna Other [facility] Other 10-05-2022 10:00-0400 Diastolic blood pressure 70 mm[Hg] Dung Serna Other [facility] Other 10-05-2022 10:00-0400 Systolic blood pressure 118 mm[Hg] Dung Serna Other [facility] Other 06-02-2022 11:00-0500 Body height 177.8 cm Reddy Brandt Other [facility] Other 06-02-2022 11:00-0500 Body mass index (BMI) [Ratio] 30.13 kg/m2 Reddy Karly Other [facility] Other 06-02-2022 11:00-0500 Body weight 95.26 kg Reddy Meehanley Other [facility] Other 03-15-2022 13:45-0500 Body height 177.8 cm Reddy Brandt Other [facility] Other 03-15-2022 13:45-0500 Body mass index (BMI) [Ratio] 30.85 kg/m2 Reddy Karly Other [facility] Other 03-15-2022 13:45-0500 Body weight 97.52 kg Reddy Karly Other [facility] Other 02-07-2022 14:00-0500 Body height 177.8 cm Ghanshyam Kaye Other [facility] Other 02-07-2022 14:00-0500 Body mass index (BMI) [Ratio] 30.85 kg/m2 Ghanshyam Kaye Other [facility] Other 02-07-2022 14:00-0500 Body weight 97.52 kg Ghanshyam Kaye Other [facility] Other 02-07-2022 14:00-0500 Diastolic blood pressure 72 mm[Hg] Ghanshyam Kaye Other [facility] [employer] Other 02-07-2022 14:00-0500 SaO2% (BldA) [Mass fraction] 98 % Ghanshyam Kaye Other [facility] Other 02-07-2022 14:00-0500 Systolic blood pressure 118 mm[Hg] Ghanshyam Kaye Other [facility] Other 11-29-2021 14:35-0400 Diastolic blood pressure 78 mm[Hg] DO Deon Ramoss Work Phone: [facility] 11-29-2021 14:35-0400 Heart rate 75 /min DO Deon Cordovahas Work Phone: [facility] 11-29-2021 14:35-0400 Respiratory rate 16 /min DO Deon Cordovahas Work Phone: [facility] 11-29-2021 14:35-0400 SaO2% (BldA) [Mass fraction] 95 % DO Deon Cordovahas Work Phone: [facility] 11-29-2021 14:35-0400 Systolic blood pressure 123 mm[Hg] DO Deon Cordovahas Work Phone: [facility] 11-29-2021 13:39-0400 Inhaled oxygen flow rate 8 L/min DO Deon Tashahas Work Phone: [facility] 11-29-2021 13:24-0400 Body temperature 98.5 [degF] DO Deon Tashahas Work Phone: [facility] 11-29-2021 12:10-0400 Body height 182.88 cm DO Deon Tashahas Work Phone: [facility] 11-29-2021 12:10-0400 Body mass index (BMI) [Ratio] 30.5 kg/m2 DO Deon Ramoss Work Phone: [facility] 11-29-2021 12:10-0400 Body weight 102.05 kg DO Deon Ramoss Work Phone: [facility] 11-03-2021 10:41-0400 Diastolic blood pressure 66 mm[Hg] DO Deon Ramoss Work Phone: [facility] 11-03-2021 10:41-0400 Heart rate 78 /min DO Deon Ramoss Work Phone: [facility] 11-03-2021 10:41-0400 Respiratory rate 16 /min DO Deon Ramoss Work Phone: [facility] 11-03-2021 10:41-0400 SaO2% (BldA) [Mass fraction] 97 % DO Deon Ramoss Work Phone: [facility] 11-03-2021 10:41-0400 Systolic blood pressure 121 mm[Hg] DO Deon Ramoss Work Phone: [facility] 11-03-2021 09:41-0400 Body temperature 98 [degF] DO Deon Ramoss Work Phone: [facility] 11-03-2021 09:11-0400 Inhaled oxygen flow rate 8 L/min DO Deon Ramoss Work Phone: [facility] 11-03-2021 07:37-0400 Body height 182.88 cm DO Deon Ramoss Work Phone: [facility] 11-03-2021 07:37-0400 Body mass index (BMI) [Ratio] 30.5 kg/m2 DO Deon Ramoss Work Phone: [facility] 11-03-2021 07:37-0400 Body weight 102.05 kg DO Deon Ramoss Work Phone: [facility] 11-01-2021 18:03-0400 Diastolic blood pressure 69 mm[Hg] DO Deon Yuhas Work Phone: [facility] 11-01-2021 18:03-0400 Heart rate 71 /min DO Deon Yuhas Work Phone: [facility] 11-01-2021 18:03-0400 Respiratory rate 16 /min DO Deon Yuhas Work Phone: [facility] 11-01-2021 18:03-0400 SaO2% (BldA) [Mass fraction] 99 % DO Deon Yuhas Work Phone: [facility] 11-01-2021 18:03-0400 Systolic blood pressure 124 mm[Hg] DO Deon Yuhas Work Phone: [facility] 11-01-2021 16:21-0400 Body height 182.88 cm DO Deon Yuhas Work Phone: [facility] 11-01-2021 16:21-0400 Body temperature 98 [degF] DO Deon Tashahas Work Phone: [facility] 11-01-2021 16:21-0400 Body weight 102.05 kg DO Deon Yuhas Work Phone: [facility] 10-31-2021 10:30-0400 Body height 177.8 cm Reddy Brandt Other [facility] [employer] Other 10-27-2021 05:00-0400 Body temperature 98.6 [degF] DO Deon Yuhas Work Phone: [facility] 10-27-2021 05:00-0400 Diastolic blood pressure 72 mm[Hg] DO Deon Yuhas Work Phone: [facility] 10-27-2021 05:00-0400 Heart rate 70 /min DO Deon Yuhas Work Phone: [facility] 10-27-2021 05:00-0400 Respiratory rate 16 /min DO Deon Cordovahas Work Phone: [facility] 10-27-2021 05:00-0400 SaO2% (BldA) [Mass fraction] 98 % DO Deon Tashahas Work Phone: [facility] 10-27-2021 05:00-0400 Systolic blood pressure 132 mm[Hg] DO Deon Tashahas Work Phone: [facility] 10-24-2021 12:00-0400 Body height 182.88 cm DO Deon Ramoss Work Phone: [facility] 10-23-2021 05:26-0400 Body weight 70.9 kg DO Deon Cordovahas Work Phone: [facility] 10-22-2021 04:14-0400 Inhaled oxygen concentration 21 % DO Deon Cordovahas Work Phone: [facility] 10-21-2021 12:00-0400 Body temperature 98.1 [degF] DO Deon Cordovahas Work Phone: [facility] 10-21-2021 12:00-0400 Diastolic blood pressure 73 mm[Hg] DO Deon Cordovahas Work Phone: [facility] 10-21-2021 12:00-0400 Heart rate 76 /min DO Deon Cordovahas Work Phone: [facility] 10-21-2021 12:00-0400 Respiratory rate 18 /min DO Deon Cordovahas Work Phone: [facility] 10-21-2021 12:00-0400 SaO2% (BldA) [Mass fraction] 95 % DO Deon Tashahas Work Phone: [facility] 10-21-2021 12:00-0400 Systolic blood pressure 128 mm[Hg] DO Deon Cordovahas Work Phone: [facility] 10-21-2021 06:00-0400 Body weight 99.9 kg DO Deon Braxton Work Phone: [facility] 10-21-2021 02:05-0400 Inhaled oxygen concentration 21 % DO Deon Braxton Work Phone: [facility] 10-19-2021 11:00-0400 Body height 182.88 cm DO Deon Braxton Work Phone: [facility] 10-18-2021 15:37-0400 Inhaled oxygen flow rate 6 L/min DO Deon Braxton Work Phone: [facility] 10-18-2021 13:19-0400 Body mass index (BMI) [Ratio] 29.8 kg/m2 DO Deon Braxton Work Phone: [facility] 10-12-2021 10:00-0400 Body height 177.8 cm Reddy Brandt Other [facility] Other 10-12-2021 10:00-0400 Body mass index (BMI) [Ratio] 32.28 kg/m2 Reddy Brandt Other [facility] Other 10-12-2021 10:00-0400 Body weight 102.06 kg Reddy Brandt Other [facility] Other 10-06-2021 14:15-0400 Body height 177.8 cm Pako Aguilar Other [facility] Other 10-06-2021 14:15-0400 Body mass index (BMI) [Ratio] 32.28 kg/m2 Pako Aguilar Other [facility] Other 10-06-2021 14:15-0400 Body temperature 97.3 [degF] Pako Aguilar Other [facility] Other 10-06-2021 14:15-0400 Body weight 102.06 kg Pako Aguilar Other [facility] Other 10-06-2021 14:15-0400 Diastolic blood pressure 73 mm[Hg] Pako Aguilar Other [facility] Other 10-06-2021 14:15-0400 Systolic blood pressure 127 mm[Hg] Pako Leon Other [facility] Other 09-08-2021 15:30-0400 Body height 177.8 cm Pako Leon Other [facility] Other 09-08-2021 15:30-0400 Body temperature 98.1 [degF] Pako Leon Other [facility] Other 09-08-2021 15:30-0400 Diastolic blood pressure 73 mm[Hg] Pako Aguilar Other [facility] Other 09-08-2021 15:30-0400 Systolic blood pressure 149 mm[Hg] Pako Aguilar Other [facility] Other Encounters Encounter Date Encounter Type Care Provider Facility Start: 05-12-2023 Refill Deon Payan Work Phone: [facility] Comment on above: Pure hypercholestero lemia Med Refill Start: 04-19-2023 End: 04-19-2023 ambulatory Salina Lee Facility:[facility] Start: 04-19-2023 End: 04-19-2023 ambulatory DO Deon Braxton Work Phone: [facility] Work Phone: Start: 04-19-2023 End: 04-19-2023 Departed Referred DO Deon Yuhas Work Phone: [facility] Start: 04-13-2023 [facility] Comment on above: 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, with long-term current use of insulin ([facility]) Start: 04-12-2023 End: 04-12-2023 ambulatory [facility] Start: 04-12-2023 Encounter for prepro cedural cardiovascular examination [facility] Start: 04-12-2023 End: 04-12-2023 Office outpatient visit 25 minutes Terry Lock ONLINE AFFILIATE MARKETING MANAGER-WINE STEWARD [facility] Comment on above: Preop cardiovascular exam (Primary Dx); Coronary artery disease involving knik coronary artery of knik heart without angina pectoris; Ischemic cardiomyopathy; Chronic systolic congestive heart failure ([facility]); Apical mural thrombus; Essential (primary) hypertension; Cardiac defibrillator in place- [employer]; Mixed hyperlipidemia Start: 04-12-2023 End: 04-12-2023 Patient encounter status Terry Lock ONLINE AFFILIATE MARKETING MANAGER-WINE STEWARD Work Phone: [facility] Work Phone: Start: 04-05-2023 End: 04-06-2023 ambulatory YOVANNY CALHOUN [facility] Start: 04-03-2023 End: 04-03-2023 ambulatory Dung Serna Other [facility] Other Start: 04-03-2023 Telephone encounter Dung Serna [facility] Neurosurgery Start: 03-22-2023 End: 03-22-2023 ambulatory YOVANNY WILLISE Not Available Start: 03-22-2023 End: 03-22-2023 ambulatory YOVANNY Michael WILLISE Not Available Start: 03-07-2023 End: 03-07-2023 ambulatory YOVANNY WILLISE Not Available Start: 01-11-2023 End: 01-11-2023 ambulatory Ghanshyam Kaye Other [facility] [employer] Other Start: 01-11-2023 Telephone encounter Ghanshyam Kaye [facility] Pain Management Start: 12-05-2022 End: 12-05-2022 ambulatory Ghanshyam Kaye Other [facility] Other Start: 12-05-2022 Office outpatient vi sit 15 minutes Ghanshyam Kaye [facility] Re[facility] Spine Start: 10-05-2022 Office outpatient ne w 30 minutes Dung Serna [facility] Neurosurgery Start: 10-05-2022 End: 10-05-2022 ambulatory Dung Rich Serna [employer] Other Start: 08-02-2022 End: 08-02-2022 ambulatory Reddy Brandt Other [facility] Other Start: 08-02-2022 Office outpatient vi sit 15 minutes Reddy Brandt [facility] Start: 06-02-2022 End: 06-02-2022 ambulatory Reddy Brandt Other [facility] Other Start: 06-02-2022 Postop follow up vis it related to original px Reddy Brandt [facility] Start: 05-12-2022 End: 05-12-2022 ambulatory Reddy Brandt Other [facility] Other Start: 05-12-2022 Telephone encounter Reddy Brandt [facility] Start: 05-03-2022 End: 05-03-2022 ambulatory DO Deon Braxton Work Phone: [facility] Work Phone: Start: 05-03-2022 End: 05-03-2022 Patient encounter procedure DO Deon Braxton Work Phone: [facility] [address] Start: 04-28-2022 End: 04-28-2022 ambulatory Reddy Brandt Other [facility] Other Start: 04-28-2022 Office outpatient vi sit 15 minutes Reddy Brandt [facility] Start: 04-17-2022 End: 04-17-2022 ambulatory Reddy Brandt Other [facility] Other Start: 04-17-2022 Telephone encounter Reddy Brandt [facility] Start: 04-12-2022 End: 04-12-2022 ambulatory Reddy Brandt Other [facility] Other Start: 04-12-2022 Postop follow up vis it related to original px Reddy Karly [facility] Start: 03-15-2022 End: 03-15-2022 ambulatory Reddy Brandt Other [facility] Other Start: 03-15-2022 Office outpatient vi sit 15 minutes Reddy Brandt [facility] Start: 02-07-2022 End: 02-07-2022 ambulatory Ghanshyam Kaye Other [facility] Other Start: 02-07-2022 Office outpatient vi sit 15 minutes Ghanshyam Kaye [facility] Start: 02-03-2022 End: 02-03-2022 ambulatory Reddy Brandt Other [facility] Other Start: 02-03-2022 Postop follow up vis it related to original px Reddy Karly [facility] Start: 01-24-2022 End: 01-24-2022 ambulatory Reddy Brandt Other [facility] Other Start: 01-24-2022 Telephone encounter Reddy Brandt [facility] Start: 01-20-2022 End: 01-20-2022 ambulatory Reddy Brandt Other [facility] Other Start: 01-20-2022 Postop follow up vis it related to original px Reddy Karly [facility] Start: 01-16-2022 End: 01-16-2022 ambulatory Reddy Brandt Other [facility] Other Start: 01-16-2022 Telephone encounter Reddy [facility] Start: 01-06-2022 End: 01-06-2022 ambulatory Reddy Brandt Other [facility] Other Start: 01-06-2022 Postop follow up vis it related to original px Reddy Karly [facility] Start: 12-23-2021 End: 12-23-2021 ambulatory Reddy Brandt Other [facility] Other Start: 12-23-2021 Postop follow up vis it related to original px Reddy Karly [facility] Start: 12-20-2021 End: 12-20-2021 Discharged Recurring DO Deon Tashadonna Work Phone: [facility]-Infusion Therapy - O/P Start: 12-14-2021 End: 12-14-2021 ambulatory Reddy Brandt Other [facility] Other Start: 12-14-2021 Postop follow up vis it related to original px Reddy Brandt [facility] Start: 12-12-2021 End: 12-12-2021 ambulatory Reddy Brandt Other [facility] Other Start: 12-12-2021 Telephone encounter Reddy Gil [facility] Start: 12-09-2021 End: 12-09-2021 ambulatory Reddy Brandt Other [facility] Other Start: 12-09-2021 Postop follow up vis it related to original px Reddy Karly [facility] Start: 11-29-2021 End: 11-29-2021 Evaluation and management of inpatient DO Deon Yuhas Work Phone: [facility] Start: 11-29-2021 End: 11-29-2021 Admission to same day surgery center DO Deon Braxton Work Phone: [facility]-Surgery [facility] Start: 11-28-2021 End: 11-28-2021 ambulatory Reddy Brandt Other [facility] [employer] Other Start: 11-28-2021 Postop follow up vis it related to original px Reddy Karly [facility] Start: 11-21-2021 End: 11-21-2021 ambulatory Reddy Brandt Other [facility] [employer] Other Start: 11-21-2021 Telephone encounter Reddy Gil [facility] Start: 11-03-2021 End: 11-03-2021 Admission to same day surgery center DO [facility]xton [facility] Start: 11-02-2021 End: 11-02-2021 ambulatory Reddy Brandt Other [facility] [employer] Other Start: 11-02-2021 Postop follow up vis it related to original px Reddy Karly [facility] Start: 11-02-2021 End: 11-02-2021 Patient encounter procedure DO Deon Braxton Work Phone: [facility]-Pre-Surgical Testing Start: 11-01-2021 End: 11-01-2021 Emergency department patient visit DO Deon Braxton Work Phone: [facility]-Emergency Room Start: 11-01-2021 End: 11-01-2021 ambulatory Reddy Brandt Other [facility] [employer] Other Start: 11-01-2021 Telephone encounter Reddy MOE [facility] Start: 10-31-2021 End: 10-31-2021 ambulatory Reddy Brandt Other [facility] Other Start: 10-31-2021 Postop follow up vis it related to original px Reddy Brandt [facility] Start: 10-21-2021 End: 10-27-2021 Evaluation and management of inpatient DO Deon Braxton Work Phone: [facility] Start: 10-18-2021 End: 10-21-2021 Evaluation and management of inpatient DO Deon Braxton Work Phone: [facility] Start: 10-14-2021 End: 10-14-2021 Patient encounter procedure DO Deon Braxton Work Phone: [facility]-Pre-Surgical Testing Start: 10-12-2021 End: 10-12-2021 ambulatory Reddy Brandt Other [facility] Other Start: 10-12-2021 Office outpatient vi sit 25 minutes Reddy Brandt [facility] Start: 10-10-2021 End: 10-10-2021 Patient encounter procedure DO Deon Braxton Work Phone: [facility]MRI [facility] [place] Start: 10-06-2021 End: 10-06-2021 Patient encounter procedure DO Deon Braxton Work Phone: [facility] [place] Start: 10-06-2021 End: 10-06-2021 ambulatory Reddy Brandt Other [facility] Other Start: 10-06-2021 Office outpatient vi sit 25 minutes Pako ROSENBERG Infect[facility] Start: 10-06-2021 Telephone encounter Reddy MOE [facility] Start: 09-29-2021 End: 09-29-2021 Patient encounter procedure DO Deon Braxton Work Phone: [facility]-Pacemaker Check Start: 09-26-2021 End: 09-26-2021 ambulatory Reddy Brandt Other [facility] Other Start: 09-26-2021 [facility] Start: 09-21-2021 End: 09-21-2021 Patient encounter procedure DO Deon Braxton Work Phone: [facility] Start: 09-21-2021 ambulatory SALINA LEE Faci lity:[facility]1 Start: 09-09-2021 End: 09-10-[address] DEON BRAXTON Facility:[facility] Start: 09-09-2021 End: 09-10-2021 ambulatory SALINA LEE Facility:[facility] Start: 09-08-2021 End: 09-08-2021 ambulatory Pako Aguilar Other [facility] Other Start: 09-08-2021 Office outpatient vi sit 25 minutes Pako Aguilar [facility] Start: 08-31-2021 End: 09-01-2021 ambulatory SALINA DOMINGOARIS Facility:[facility] Start: 08-26-2021 End: 08-27-2021 ambulatory SALINA D CHAYOARIS Facility:[facility] Start: 08-24-2021 End: 08-25-2021 ambulatory SALINA D CHAYOARIS Facility:[facility] Start: 08-10-2021 ambulatory SALINA DOMINGOARIS Faci lity:H1 Start: 07-05-2021 End: 07-06-2021 ambulatory [...] [place] Facility:[facility] Start: 04-25-2021 End: 04-26-2021 ambulatory DEOLNG O [place] Facility:[facility] Start: 04-19-2021 End: 04-20-2021 ambulatory DELONG O [place] Facility:[facility] Start: 04-15-2021 End: 04-16-2021 ambulatory DELONG O [place] Facility:[facility] Start: 04-14-2021 End: 04-15-2021 ambulatory DELONG O [place] Facility:[facility]1 Start: 04-11-2021 End: 04-12-2021 ambulatory DELONG O [place] Facility:[facility] Start: 04-07-2021 End: 04-08-2021 ambulatory SALINA LEE Facility:[facility] Start: 04-04-2021 End: 04-05-[address] DEON BRAXTON Facility:[facility] Start: 03-31-2021 End: 04-01-2021 ambulatory DELONG O [place] Facility:[facility] Start: 03-28-2021 End: 03-29-[address] DEON BRAXTON Facility:[facility] Start: 03-24-2021 End: 03-25-[address] DEON BRAXTON Facility:[facility]1 Start: 03-21-2021 End: 03-22-[address] DEON BRAXTON Facility:[facility] Start: 03-17-2021 End: 03-18-2021 ambulatory SALINA DOMINGOARIS Facility:[facility] Start: 03-10-2021 End: 03-11-2021 [facility] Start: 03-03-2021 End: 03-04-2021 ambulatory SALINA Walker [facility] Facility:H1 Start: 02-28-2021 ambulatory DEON BRAXTON Faccathi lity:[facility] Start: 02-23-2021 End: 02-24-2021 ambulatory SALINA Walker [facility] Facility:H1 Start: 02-22-2021 ambulatory DEON Ho lity:[facility] Start: 02-17-2021 End: 02-18-2021 ambulatory SALINA Walker [facility] Facility:H1 Start: 02-09-2021 Encounter for prepro cedural laboratory examination SALINA Walker [facility] Start: 02-08-2021 End: 02-12-2021 Evaluation and management of inpatient SHAIKH Akiko JUSTEN Facility:[facility]1 Start: 02-05-2021 End: 02-05-2021 ambulatory DONALD BRADLEY Facility:[facility] Start: 02-02-2021 End: 02-03-2021 ambulatory SALINA LEE Facility:[facility] Start: 02-02-2021 End: 02-03-[address] DEON RBAXTON Facility:[facility] Start: 02-02-2021 End: 02-03-2021 Encounter for preprocedural laboratory examination DR DEON BRAXTON Facility:[facility]1 Start: 01-27-2021 End: 01-28-[address] DEON BRAXTON Facility:[facility] Start: 01-26-2021 End: 01-27-[address] DEON BRAXTON Facility:[facility] Start: 01-24-2021 End: 01-25-[address] DEON BRAXTON Facility:[facility] Start: 01-20-2021 End: 01-21-[address] DEON BRAXTON Facility:[facility]1 Start: 01-11-2021 End: 01-11-2021 ambulatory DEON BRAXTON Facility:[facility] Start: 01-10-2021 End: 01-11-2021 ambulatory DEON BRAXTON Facility:[facility] Start: 12-08-2020 End: 12-09-[address] DEON BRAXTON Facility:[facility]1 Start: 12-03-2020 End: 12-04-[address] DEON BRAXTON Facility:[facility] Start: 11-29-2020 End: 11-30-2020 [facility] Start: 11-25-2020 End: 11-26-2020 ambulatory SALINA Walker [facility] Facility:H1 Start: 11-22-2020 End: 11-23-2020 ambulatory DELONG O [place] Facility:[facility]1 Start: 11-18-2020 End: 11-19-2020 ambulatory DELONG O [place] Facility:[facility]1 Start: 11-11-2020 End: 11-12-2020 ambulatory DELONG O [place] Facility:[facility]1 Start: 11-04-2020 End: 11-05-2020 ambulatory SALINA Walker [facility] Facility:H1 Procedures Date Procedure Procedure Detail Performing Clinician Start: 04-12-2023 Ecg routine ecg w/le ast 12 lds w/i&r Terry Leo ONLINE AFFILIATE MARKETING MANAGERToyTalkWINE STEWARD Work Phone: Start: 03-22-2023 Adult depression scr eening assessment Terry Lock ONLINE AFFILIATE MARKETING MANAGER-[employer] Work Phone: Start: 12-29-2022 Diabetic retinal eye exam Terry Lock ONLINE AFFILIATE MARKETING MANAGER-[employer] Work Phone: Start: 10-26-2022 Microalbumin [Mass/v olume] in Urine by Test strip Terry Lock ONLINE AFFILIATE MARKETING MANAGER-[employer] Work Phone: Start: 11-29-2021 Incision and drainag e of lower extremity DO Deon Tashadonna Work Phone: Start: 11-03-2021 Amputation of right lower limb DO Deon Braxton Work Phone: Start: 10-18-2021 Amputation of right lower limb DO Deon Braxton Work Phone: Start: 10-10-2021 MRI of lower leg DO Rylan Braxton Work Phone: Start: 09-21-2021 Plain X-ray of right tibia and right fibula DO [employer] Phone: Start: 09-21-2021 X-ray of right knee DO [employer] Phone: Start: 02-11-2021 Fusion of Right Tars al Joint with Internal Fixation Device, Open Approach [facility] Start: 02-11-2021 Introduction of Othe r Anti-infective into Joints, Open Approach [facility] Start: 02-11-2021 Removal of Spacer fr om Right Ankle Joint, Percutaneous Approach [facility] Start: 02-08-2021 Excision of Right Fi bula, Open Approach [facility] Start: 02-08-2021 Introduction of Othe r Anti-infective into Joints, Open Approach [facility] Start: 02-08-2021 Removal of Internal Fixation Device from Right Ankle Joint, Open Approach [facility] Aerobic microbial culture DO [employer] Phone: Anaerobic microbial culture DO [employer] Phone: History of amputatio n of foot Pako Aguilar Other Investigation of transfusion reaction DO [employer] Phone: SARS-CoV-2, Influenz a & RSV (PCR) DO [employer] Phone: Plan of Treatment Date Care Activity Detail Author Start: 01-13-2026 DTaP,Tdap and Td Vaccines (2 - Td or Tdap) DTaP,Tdap and Td Vaccines (2 - Td or Tdap) [facility] [employer] Start: 04-12-2024 Adult BMI Screening Adult BMI Screening [facility] Start: 04-12-2024 Tobacco Screening Tobacco Screening [facility] Start: 03-22-2024 [facility] Start: 03-22-2024 Fall Risk Screening Fall Risk Screening [facility] Start: 12-30-2023 Glaucoma screening Diabetic Ophthalmology Exam [facility] Start: 11-29-2023 End: 11-29-2023 Patient encounter procedure 11/29/2023 9:00 AM EDT Office Visit [facility] Internal [facility] - Family Medicine [address] [place] [address] [facility] Start: 11-24-2023 Medicare Annual Wellness Visit Medicare Annual Wellness Visit [facility] Start: 10-27-2023 Diabetic foot examination Diabetic Foot Exam [facility] Start: 10-27-2023 Urine screening for protein Urine Microalbumin [facility] Start: 11-29-2021 [facility] Start: 11-29-2021 [facility] Start: 11-29-2021 Incision and drainage of lower extremity OR I&D Exploration Upper/Lower Extremity (Right) [facility] Start: 11-29-2021 End: 11-29-2021 Admission to same day surgery center Below knee amputation [facility] [place] Start: 11-03-2021 [facility] Start: 11-03-2021 [facility] Start: 11-03-2021 Amputation of right lower limb OR Leg Amputation Above/Below (Right) [facility] Start: 11-03-2021 End: 11-03-2021 Admission to same day surgery center Departed Surgical Day Care [facility] [place] Start: 11-02-2021 End: 11-02-2021 Patient encounter procedure Departed Clinical [facility] Start: 11-01-2021 End: 11-01-2021 Emergency department patient visit Departed Emergency [facility] Start: 10-27-2021 [facility] Work Phone: Start: 10-21-2021 Hospital admission [facility] Work Phone: Start: 10-21-2021 Referral to clinical strike off machine operator [facility] Work Phone: Start: 10-21-2021 [facility] Work Phone: Start: 10-18-2021 Referral to clinical strike off machine operator [facility] Work Phone: Start: 10-18-2021 Detachment at Right Lower Leg, Mid, Open Approach Detachment at Right Lower Leg, Mid, Open Approach [facility] Start: 10-17-2021 [facility] Work Phone: Start: 10-14-1975 Adult BMI Follow Up Plan Adult BMI Follow Up Plan [facility] Patient Education [facility] Work Phone: Patient referral [facility] Work Phone: SARS-CoV-2 (COVID-19 ) N gene [Presence] in Respiratory specimen by MEREDITH with probe detection [facility] Work Phone: Immunizations Immunization Date Immunization Notes Care Provider Fa cili 03-12-2023 Covid-19,mrna, Lnp-s , Pf, 50mcg/0.5ml 12+ Terry Lock ONLINE AFFILIATE MARKETING MANAGER[employer] Work Phone: [facility] 03-12-2023 Influenza Vaccine, Quadrivalent, Adjuvanted Terry Lock ONLINE AFFILIATE MARKETING MANAGER[employer] Work Phone: [facility] 03-12-2023 RSV, mAb, nirsevimab-alip, 1 mL, to 24 months Terry Lock ONLINE AFFILIATE MARKETING MANAGER[employer] Work Phone: [facility] 03-12-2023 RSV, recombinant, protein subunit RSVpreF, adjuvant reconstituted, 0.5 mL, PF Terry Lock ONLINE AFFILIATE MARKETING MANAGER[employer] Work Phone: [facility] 06-14-2022 zoster vaccine recombinant Terry Lock ONLINE AFFILIATE MARKETING MANAGER[employer] Work Phone: [facility] 04-15-2022 Covid-19, Mrna, Lnp- s, Bivalent, Pf, 50mcg/0.5ml or 25mcg/0.25ml Terry Lock ONLINE AFFILIATE MARKETING MANAGER[employer] Work Phone: [facility] 04-15-2022 zoster vaccine recombinant Terry Lock ONLINE AFFILIATE MARKETING MANAGER[employer] Work Phone: [facility] 04-11-2022 Influenza, High-dose , Quadrivalent Terry Lock ONLINE AFFILIATE MARKETING MANAGER[employer] Work Phone: [facility] 03-01-2021 COVID-19 mRNA-1273 (Moderna) DO Deon Braxton Work Phone: [facility] 03-01-2021 Seasonal, quadrivale nt, recombinant, injectable influenza vaccine, preservative free Terry Lock ONLINE AFFILIATE MARKETING MANAGER-[employer] Work Phone: [facility] 06-25-2020 COVID-19 mRNA-1273 (Moderna) DO Deon Braxton Work Phone: [facility] 05-28-2020 COVID-19, mRNA, LNP- S, PF, 100mcg/0.5mL Dose Terry Lock ONLINE AFFILIATE MARKETING MANAGER[employer] Work Phone: [facility] 05-25-2020 COVID-19, mRNA, LNP- S, PF, 100mcg/0.5mL Dose Terry Lock ONLINE AFFILIATE MARKETING MANAGER[employer] Work Phone: [facility] 01-14-2020 influenza, seasonal, injectable Terry Lock ONLINE AFFILIATE MARKETING MANAGER[employer] Work Phone: [facility] 12-30-2019 influenza, injectabl e, quadrivalent, preservative free Terry Lock ONLINE AFFILIATE MARKETING MANAGER[employer] Work Phone: [facility] 04-07-2019 Influenza, injectabl e, Madin Yumiko Canine Kidney, preservative free, quadrivalent Terry Lock ONLINE AFFILIATE MARKETING MANAGER[employer] Work Phone: [facility] 12-31-2018 pneumococcal conjuga te vaccine, 13 valent Terry Lock ONLINE AFFILIATE MARKETING MANAGER[employer] Work Phone: [facility] 01-23-2018 influenza, injectabl e, quadrivalent, contains preservative Terry Lock ONLINE AFFILIATE MARKETING MANAGER[employer] Work Phone: [facility] 01-23-2018 influenza, injectabl e, quadrivalent, preservative free Terry Lock ONLINE AFFILIATE MARKETING MANAGER[employer] Work Phone: [facility] 02-05-2017 influenza, injectabl e, quadrivalent, preservative free Terry Lock ONLINE AFFILIATE MARKETING MANAGER[employer] Work Phone: [facility] 02-05-2017 pneumococcal conjuga te vaccine, 13 valent Terry Lock ONLINE AFFILIATE MARKETING MANAGER[employer] Work Phone: [facility] 01-14-2017 influenza, injectabl e, quadrivalent, contains preservative Terry Lock ONLINE AFFILIATE MARKETING MANAGER[employer] Work Phone: [facility] 01-14-2016 tetanus toxoid, redu joseph diphtheria toxoid, and acellular pertussis vaccine, adsorbed Terry Lock ONLINE AFFILIATE MARKETING MANAGER[employer] Work Phone: [facility] 01-02-2016 influenza virus vacc ine, unspecified formulation Terry Lock ONLINE AFFILIATE MARKETING MANAGER[employer] Work Phone: [facility] 08-13-2015 zoster vaccine, live Terry Lock ONLINE AFFILIATE MARKETING MANAGER[employer] Work Phone: [facility] 12-22-2014 influenza, seasonal, injectable, preservative free Terry Lock ONLINE AFFILIATE MARKETING MANAGER[employer] Work Phone: [facility] 01-26-2014 pneumococcal conjuga te vaccine, 13 valent Terry Lock ONLINE AFFILIATE MARKETING MANAGER[employer] Work Phone: [facility] 01-12-2014 influenza, seasonal, injectable Terry Lock ONLINE AFFILIATE MARKETING MANAGER[employer] Work Phone: [facility] 01-12-2014 Seasonal trivalent influenza vaccine, adjuvanted, preservative free Terry Lock ONLINE AFFILIATE MARKETING MANAGER[employer] Work Phone: [facility] 09-17-2012 pneumococcal polysaccharide vaccine, 23 valent Terry Lock ONLINE AFFILIATE MARKETING MANAGER[employer] Work Phone: [facility] 09-17-2012 pneumococcal vaccine , unspecified formulation Terry Lock ONLINE AFFILIATE MARKETING MANAGER[employer] Work Phone: [facility] Payers Date Payer Category Payer Medicare [id number] 2023 Medicare [facility] MEDICARE [facility] MEDICARE ADVANTAGE [id number] 2023-[facility] [phone] [address] [place] [address] [id number]. [id number] 2022 Self-pay [id number] 2022 Medicare [id number] 2021 Unknown 1959 Medicare [id number] 2.16.840.1.807565.19 1957 Unknown [id number] 2.16.840.1.645176.3.579.2.196 1957 Unknown [id number] 2.16.840.1.314525.3.579.2.196 1957 Unknown [id number] 2.16.840.1.155268.3.579.2.196 1957 Unknown [id number] 2.16.840.1.304507.3.579.2.196 1957 Unknown [id number] 2.16.840.1.137741.3.579.2.593 1957 Unknown [id number] 2.16.840.1.547898.3.579.2.593 1957 Unknown [id number] 2.16.840.1.085387.3.579.2.593 1957 Unknown [id number] 2.16.840.1.977388.3.579.2.593 1957 Unknown [id number] 2.16.840.1.201867.3.579.2.593 1957 Unknown [id number] 2.16.840.1.533652.3.579.2.593 1957 Unknown [id number] 2.16.840.1.604376.3.579.2.593 1957 Unknown [id number] 2.16.840.1.319582.3.579.2.593 1957 Unknown [id number] 2.16.840.1.313014.3.579.2.593 1957 Unknown [id number] 2.16.840.1.368194.3.579.2.593 1957 Unknown [id number] 2.16.840.1.021127.3.579.2.593 1957 Unknown [id number] 2.16.840.1.582822.3.579.2.59 1957 Unknown [id number] 2.16.840.1.547061.3.579.2.59 1957 Unknown [id number] 2.16.840.1.276966.3.579.2.593 1957 Unknown [id number] 2.16.840.1.964933.3.579.2. 1957 Unknown [id number] 2.16.840.1.001485.3.579.2.593 1957 Unknown [id number] 2.16.840.1.222997.3.579.2. 1957 Unknown [id number] 2.16.840.1.395183.3.579.2.593 1957 Unknown [id number] 2.16.840.1.653546.3.579.2.59 1957 Unknown [id number] 2.16.840.1.339760.3.579.2.593 1957 Unknown [id number] 2.16.840.1.835244.3.579.2.593 1957 Unknown [id number] 2.16.840.1.682577.3.579.2.593 1957 Unknown [id number] 2.16.840.1.574960.3.579.2.59 1957 Unknown [id number] 2.16.840.1.096397.3.579.2.593 1957 Unknown [id number] 2.16.840.1.887415.3.579.2.59 1957 Unknown [id number] 2.16.840.1.612400.3.579.2.593 1957 Unknown [id number] 2.16.840.1.357467.3.579.2.59 1957 Unknown [id number] 2.16.840.1.286020.3.579.2.59 1957 Unknown [id number] 2.16.840.1.807688.3.579.2. 1957 Unknown [id number] 2.16.840.1.681165.3.579.2. 1957 Unknown [id number] 2.16.840.1.274145.3.579.2. 1957 Unknown [id number] 2.16.840.1.660165.3.579.2. 1957 Unknown [id number] 2.16.840.1.949546.3.579.2.59 1957 Unknown [id number] 2.16.840.1.912007.3.579.2.59 1957 Unknown [id number] 2.16.840.1.515347.3.579.2.59 1957 Unknown [id number] 2.16.840.1.545239.3.579.2.59 1957 Unknown [id number] 2.16.840.1.842882.3.579.2.59 1957 Unknown [id number] 2.16.840.1.454044.3.579.2.593 1957 Unknown [id number] 2.16.840.1.669356.3.579.2.593 1957 Unknown [id number] 2.16.840.1.431077.3.579.2.593 1957 Unknown [id number] 2.16.840.1.229177.3.579.2.593 1957 Unknown [id number] 2.16.840.1.773947.3.579.2.593 1957 Unknown [id number] 2.16.840.1.079474.3.579.2.593 1957 Unknown [id number] 2.16.840.1.773812.3.579.2.59 1957 Unknown [id number] 2.16.840.1.183688.3.579.2.593 1957 Unknown [id number] 2.16.840.1.021316.3.579.2.59 1957 Unknown [id number] 2.16.840.1.072842.3.579.2.593 1957 Unknown [id number] 2.16.840.1.271856.3.579.2.59 1957 Unknown [id number] 2.16.840.1.381794.3.579.2.593 1957 Unknown [id number] 2.16.840.1.666779.3.579.2.593 1957 Unknown [id number] 2.16.840.1.964534.3.579.2.593 1957 Unknown [id number] 2.16.840.1.169275.3.579.2.593 1957 Unknown [id number] 2.16.840.1.037933.3.579.2.593 1957 Unknown [id number] 2.16.840.1.645212.3.579.2.598 Unknown [id number] 2.16.840.1.719330.3.579.2.593 1957 Unknown [id number] 2.16.840.1.712683.3.579.2.593 1957 Unknown [id number] 2.16.840.1.259318.3.579.2.593 1957 Unknown [id number] 2.16.840.1.109956.3.579.2.593 1957 Unknown [id number] 2.16.840.1.520831.3.579.2.1259 1957 Unknown [id number] 2.16.840.1.743562.3.579.2.1259 1957 Unknown [id number] 2.16.840.1.974900.3.579.2.1259 1957 Unknown [id number] 2.16.840.1.737441.3.579.2.1286 1957 Unknown [id number] 2.16.840.1.487922.3.579.2.1286 Unknown [facility] [id number] Unknown [id number] Unknown [id number] 2.16.840.1.325043.3.579.2.531 Unknown [id number] 2.16.840.1.914125.3.579.2.531 Social History Date Type Detail Facility Unknown if ever smoked [facility] Other Start: 04-11-2022 End: 04-12-2023 Sex Assigned At [facility] Start: 10-19-2021 End: 01-18-2022 Tobacco smoking status NHIS Never smoked tobacco (finding) [facility] Start: 1955 Sex Assigned At Male [facility] Start: 01-18-2022 Tobacco use and exposure Smokeless tobacco non-user [facility] Start: 04-12-2023 Alcohol intake Current drinker of alcohol (finding) [facility] Start: 04-11-2022 End: 04-12-2023 History of Social function [facility] Do you belong to any clubs or organizations such as advent groups, unions, fraternal or athletic groups, or school groups? No [facility] Are you now , , , , never or living with a partner? [facility] How often to you hav e a [...] housing, medical care, and heating Somewhat hard [facility] Adolescent depressio n screening assessment 0 [facility] Do you feel stress - tense, restless, nervous, or anxious, or unable to sleep at night because your mind is troubled all the time - these days [OSQ] Not at all [facility] Start: 04-11-2022 Education 21 [facility] [employer] [facility] Start: 09-10-2019 Alcohol Comment social [facility] Start: 1955 Sex Assigned At Not on file [facility] [facility] Medical Equipment Procedure Code Equipment Code Equipment Origin al Text Equipment Identifier Dates Gft Hmn Tiss 250 mg Amniofill - [id number] - [id number] Start: 12-27-2018 Gft Sft Tis Matr istem - [id number] - [id number] Start: 01-27-2019 Tiss Grafix Prim e 3x4cm - [id number] - [id number] Start: 09-15-2019 Evera Mri Xt Vr Defibrillator [id number] Start: 07-13-2015 Sprint Quattro S ecure Mri [id number] Start: 07-13-2015 Tissue Epifix 2x 4 Cm - [id number] - [id number] Start: 12-27-2018 USE DIRECTED FOUR TIMES DAILY [id number] Start: 08-07-2022 Goals Date Patient Goal Desired [...] goal: Pt plans to discharge home with PH. Functional Status Date Assessment Result Facility 10-27-2021 Functional status Patient is Pro gressing Toward Baseline [facility] Work Phone: 10-21-2021 Functional status Patient is Pro gressing Toward Baseline [facility] Work Phone: 10-18-2021 Functional status Patient at Baseline [facility] Work Phone: Mental Status Date Assessment Result Facility 10-27-2021 Cognitive function Cognitive Sta tus Patient at Baseline [facility] Work Phone: 10-21-2021 Cognitive function Cognitive Sta tus Patient is Progressing Toward Baseline [facility] Work Phone: 10-18-2021 Cognitive function Cognitive Sta tus Patient at Baseline [facility] Work Phone: Clinical Notes 01-05-2021 to 04-12-2023 Terry Lock, ONLINE AFFILIATE MARKETING MANAGER-[facility] - 04/12/2023 11:30 AM Sue High LPN [...] arthropathy, with long-term current use of insulin ([facility]) Chronic systolic congestive heart failure ([facility]) Coronary artery disease involving knik coronary artery of knik heart without angina pectoris Hearing loss Personal history of colonic polyps Colon polyps Diverticulosis large intestine w/o perforation or abscess w/o bleeding Chronic obstructive pulmonary disease ([facility]) 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 Gastroesophageal reflux disease with esophagitis without hemorrhage Stage 3b chronic kidney disease ([facility]) Subepithelial esophageal mass Sarcoidosis Diabetic retinopathy ([facility]) Obstructive sleep apnea syndrome Diabetic neuropathy ([facility]) Bilateral sensorineural hearing loss Unilateral complete AKA, right ([facility]) Allergies Allergen Reactions Doxycycline Other reaction(s): Chest Pain Levofloxacin Other reaction(s): Chest Pain Chlorpheniramine Dextromethorphan Hbr Itching Agboceexr-Eg-Uabbldpjwrfsy Guaifenesin Other reaction(s): Itching of skin Hydrocodone [...] involving left anterior descending (LAD) coronary artery ([facility]) 05/28/2015 Hyperlipidemia Interstitial lung disease ([facility]) Left ventricular failure ([facility]) MRSA (methicillin resistant staph aureus) culture positive Peptic ulceration Presence of automatic (implantable) cardiac defibrillator ST elevation (STEMI) myocardial infarction ([facility]) 2015 x 5 stents Stage 3b chronic kidney disease ([facility]) 04/22/2020 Unilateral complete AKA, right ([facility]) 03/31/2022 No data recorded No data recorded No data recorded Past Surgical History: Procedure Laterality Date ANKLE LIGAMENT RECONSTRUCTION Right 2020 APPLICATION AMNIOFILL Right 12/27/2018 Performed by Arlen Olguin DPM at [facility] APPLICATION WOUND VAC ( NOT done) Right 01/27/2019 Performed by Terry Hector DPM at [facility] CARDIAC DEFIBRILLATOR PLACEMENT 07/13/2015 [employer] COLONOSCOPY N/A 04/07/2020 Performed by Deon Braxton DO at [facility] DEBRIDEMENT FOOT EXCISION RT FOOT ULCER, APPLICATION BIOLOGIC SKIN GRAFT RT FOOT, APPLICATION OF WOUND VAC RT FOOT Right 01/27/2019 Performed by Terry Hector DPM at [facility] DEBRIDEMENT FOOT WITH APPLICATION OF GRAFIX Right 09/15/2019 Performed by Terry Hector DPM at [facility] ESOPHAGOGASTRODUODENOSCOPY N/A 05/19/2020 Performed by Deon Braxton DO at [facility] EXCISION 5TH METATARSAL Right 12/30/2018 Performed by Terry Hector DPM at [facility] FINGER SURGERY FOOT SURGERY 07/2020 [facility] Bilateral LAPAROSCOPIC CHOLECYSTECTOMY N/A 06/21/2020 Performed by Deon Justice MD at [facility] LENGTHENING TENDON RIGHT, PLANTAR FASCIOTOMY Right 09/15/2019 Performed by Terry Hector DPM at [facility] SKIN GRAFT LOWER EXTREMITY (APPLICATION OF BIOLOGIC SKIN GRAFT RT FOOT Right 01/27/2019 Performed by Terry Hector DPM at [facility] Family History Problem Relation [...] min Stress: No Stress Concern Present (04/11/2022) [employer] [place] [employer] - Occupational Stress Questionnaire Feeling of Stress : Not at all Social Connections: Moderately Integrated (04/11/2022) Social Connection and Isolation Panel [NHANES] Frequency of Communication with Friends and Family: Twice a week Frequency of Social Gatherings with Friends and Family: Twice a week Attends [employer] Services: 1 to 4 times per year [...] Verbalized understanding 2. Coronary artery disease involving knik coronary artery of knik heart without angina pectoris -aspirin, statin, beta-doreen [...] Referring Physician: Deon Braxton DO [address] [place] [address] FANNY Owens 04/12/23 1145 Office note faxed to Dr Lee for clearance documented in this encounter [facility] [employer] 12-05-2022 Evaluation note Encounter Date Diagnosis Assessment Notes Dec, Charcot foot due to diabetes mellitus (ICD-10 - E11.610) Dec, Status post transmetatarsal amputation of left foot (ICD-10 - Z89.432) as above, RX written. Dec, Hx of right BKA (ICD-10 - Z89.511) [facility] Other 07-06-2023 Evaluation note* Encounter Date Diagnosis [...] months. Sep, Peripheral polyneuropathy (ICD-10 - G62.9) [facility] Other 05-03-2023 Evaluation note* Encounter Date Diagnosis [...] elsewhere classified, subsequent encounter (ICD-10 - T81.31XD) [facility] Other 03-03-2023 Evaluation note* Encounter Date Diagnosis [...] this time. Patient is following up at [facility] for changes to prosthetic. I did recommend use of a cane to help offload some weight which may reduce his pain. Patient voiced understanding and states no further questions at this time. May, Other specified postprocedural states (ICD-10 - Z98.890) May, Postoperative wound dehiscence, initial encounter (ICD-10 - T81.31XA) [facility] Other 01-27-2023 Evaluation note* Encounter Date Diagnosis [...] wound dehiscence, initial encounter (ICD-10 - T81.31XA) [facility] Other 01-11-2023 Evaluation note* Encounter Date Diagnosis [...] wound dehiscence, initial encounter (ICD-10 - T81.31XA) [facility] Other 12-14-2022 Evaluation note* Encounter Date Diagnosis [...] wound dehiscence, initial encounter (ICD-10 - T81.31XA) [facility] Other 11-08-2022 Evaluation note* Encounter Date Diagnosis Assessment Notes Treatment Notes Treatment Clinical Notes Jan, Right below-knee amputee (ICD-10 - Z89.511) Proceed with K3 level, transtibial prosthesis, preparatory. Diligent monitoring of residual limb. Stop wearing prosthesis immediately if wound should worsen, develop erythema, increased pain, etc. Wearing schedule. [facility] Other 11-04-2022 Evaluation note* Encounter Date Diagnosis [...] wound dehiscence, initial encounter (ICD-10 - T81.31XA) [facility] Other 10-21-2022 Evaluation note* Encounter Date Diagnosis [...] wound dehiscence, initial encounter (ICD-10 - T81.31XA) [facility] Other 10-07-2022 Evaluation note* Encounter Date Diagnosis [...] wound dehiscence, initial encounter (ICD-10 - T81.31XA) [facility] Other 09-23-2022 Evaluation note* Encounter Date Diagnosis [...] wound dehiscence, initial encounter (ICD-10 - T81.31XA) sliceX Other 09-14-2022 Evaluation note* Encounter Date Diagnosis [...] wound dehiscence, initial encounter (ICD-10 - T81.31XA) sliceX Other 09-09-2022 Evaluation note* Encounter Date Diagnosis [...] infectious disease. Faxed wound center information to [phone] and left a voicemail. Dec, Other specified postprocedural states (ICD-10 - Z98.890) Dec, Postoperative wound dehiscence, initial encounter (ICD-10 - T81.31XA) sliceX Other 08-30-2022 History and physical note Author [facility] November 29, 2021 11:49am Note Date/Time November 29, 2021 11 :32am [facility] [address] [place] [address] Orthopedic Surgery H&P Signed Patient: Anai Goodman MR#: [id number] : 1955 Acct:[id number] Age/Sex: 66 / M Adm Date: 2 Loc: [place] Room: Type: [facility] Attending Dr: Reddy Brandt DO Copies to: [...] poor healing. I have advised against the mcc use of narcotic pain medication. I have advised to follow all post-operative instructions in order to obtain the best outcome. Informed consent has been verbally affirmed and signed as indicated. Documented By: Reddy Brandt DO 11/29/21 1129 Signed By: <Electronically signed by Reddy Brandt DO> 11/29/21 1145 [facility] Work Phone: [phone]) 626-851208-29-2022 Evaluation note* Encounter Date Diagnosis Assessment Notes [...] remova l of sutures (ICD-10 - Z48.02) sliceX Other 08-03-2022 Evaluation note* Encounter Date Diagnosis [...] was in understanding and wishes to proceed. sliceX Other 08-01-2022 Evaluation note* Encounter Date Diagnosis [...] move forward with treatment at this time. sliceX Other 07-27-2022 Progress note Author [facility] October 25, 2021 11:37pm Note Date/Time October 25, 2021 11:3 7[facility] [address] [place] [address] Physiatry(Rehab) Progress Note Signed Patient: Anai Goodman MR#: [id number] : 1955 Acct:[id number] Age/Sex: 66 / M Adm Date: 2 Loc: Room: [address] [place] [address] Type : ADM IN Attending Dr: Ghanshyam Kaye MD Copies to: ~ Date of Service: 10/25/2021 Subjective Subjective Narrative: Mr. Goodman is a 66 year old male who is admitted to [facility] for strengthening s/p planned right BKA. Patient's past medical history significant for DM type II, CAD, AL, s/p pacemaker/defibrillator insertion, CKD, osteomyelitis of the [...] % (Auto) 69.1 Lymph % (Auto) 9.4 [place] % (Auto) 14.5 Eos % (Auto) 6.7 Baso % (Auto) 0.3 Neut # (Auto) 4.0 Lymph # (Auto) 0.5 L [place] # (Auto) 0.8 Eos # (Auto) 0.4 [...] MPV Neut % (Auto) Lymph % (Auto) [place] % (Auto) Eos % (Auto) Baso % (Auto) Neut # (Auto) Lymph # (Auto) [place] # (Auto) Eos # (Auto) Baso # [...] mg 10/21/21 17:51 Bisacodyl 10 Mg Supp.Rect MO 10/21/22 17:50 DAILY PRN Constipation Bumetanide 1 [...] 17:51 Docusate Enema 283 Mg/5 Ml Enema MO 10/21/22 17:50 DAILY PRN Constipation Insulin Aspart 0 units 10/21/21 17:00 10/25/21 20:27 Insulin Aspart 300 Units/3 Ml Insuln.Pen SUBCUT 10/21/22 16:59 7 units TID.WM.[facility] Administration Protocol Insulin Aspart 0 units 10/21/21 17:00 10/25/21 20:30 Insulin Aspart 300 Units/3 Ml Insuln.Pen SUBCUT 10/21/22 16:59 Not Given TID.WITH.MEALS.[facility] Protocol Insulin Detemir 40 units 10/21/21 22:00 10/25/21 20:28 Insulin Detemir 300 Units/3 Ml Insuln.Pen SUBCUT 10/21/22 21:59 40 units QHS CB Administration Lactulose 30 gm 10/21/21 17:51 Lactulose 20 Gm/30 Ml Udc PO 10/21/22 17:50 DAILY PRN Constipation Losartan Potassium 25 mg 10/22/21 09:00 10/25/21 08:08 Losartan 25 Mg Tablet PO 10/22/22 08:59 25 mg QAM [facility] Administration Magnesium Oxide 400 mg 10/22/21 09:00 10/25/21 08:07 Magnesium Oxide 400 Mg Tablet PO 10/22/22 08:59 400 mg QAM [facility] Administration Multivitamins 1 tab 10/22/21 09:00 10/25/21 08:08 Multivitamin 1 Tab Tablet PO 10/22/22 08:59 1 tab QAM [facility] Administration Nitroglycerin 0.4 mg 10/21/21 15:50 Nitroglycerin [...] equipment to enhance the patient's a functional jewish Ensure adequate nutrition and hydration Sleep: Denies any issues Pain: Denies any issues Discharge planning: Home with in 7 to 10 days. I spent greater than 25 minutes for services, including vkgf-zy-efby encounter with the patient, discussion of the case, plan of care, and exam; and uwhfaxt-vi-qtzp activities, such as reviewing pertinent internet marketing consultant documentation, recent therapy notes, laboratory and radiology studies, and discussionof case with care team including nursing, family service caseworker, and therapists. More than 50 % of time was spent on patient/family counseling or coordination ofcare. Documented By: Ghanshyam Kaye MD 10/25/212333 Signed By: <Electronically signed by Ghanshyam Kaye MD> 10/25/212336 [facility] Work Phone: 1(224) 805-550407-26-2022 Progress note Author [facility] October 25, 2021 10:20am Note Date/Time October 23, 2021 11:5 7am [facility] [address] [place] [address] Physiatry(Rehab) Progress Note Signed Patient: Anai Goodman MR#: [id number] : 1955 Acct:[id number] Age/Sex: 66 / M Adm Date: 2 Loc: Room: [address] [place] [address] Type : ADM IN Attending Dr: Ghanshyam Kaye MD Copies to: ~ <Chante Narayan APRN - Last Filed: 10/23/21 11:57> Date of Service: 10/23/2021 Subjective <Chante Narayan APRN - Last Filed: 10/23/21 11:57> Subjective Narrative: Mr. Goodman is a 66 year old male who is admitted to [facility] inpatient rehab for strengthening s/p planned right BKA. Patient's past medical history significant for DM type II, CAD, AL, s/p pacemaker/defibrillator insertion, CKD, osteomyelitis of the [...] Asking about discharge, wants to talk to corrections caseworker about insurance coverage, but thinks he would be ready to go home Amanda or Sunday this week. Has an appointment [...] mg 10/21/21 17:51 Bisacodyl 10 Mg Supp.Rect MO 10/21/22 17:50 DAILY PRN Constipation Bumetanide 2 [...] 17:51 Docusate Enema 283 Mg/5 Ml Enema MO 10/21/22 17:50 DAILY PRN Constipation Insulin Aspart 0 units 10/21/21 17:00 10/23/21 09:05 Insulin Aspart 300 Units/3 Ml Insuln.Pen SUBCUT 10/21/22 16:59 1 units TID.WM. CB Administration Protocol Insulin Aspart 0 units 10/21/21 17:00 10/23/21 09:06 Insulin Aspart 300 Units/3 Ml Insuln.Pen SUBCUT 10/21/22 16:59 4 units TID.WITH.MEALS.[facility] Administration Protocol Insulin Detemir 40 units [...] 20:59 250 mcg BID CB Administration Assessment/Plan <Chantejayden Narayan APRN - Last Filed: 10/23/21 11:57> Assessment/Plan (1) [...] equipment to enhance the patient's a functional jewish Ensure adequate nutrition and hydration Sleep: Denies any issues Pain: Denies any issues Discharge planning: Home with in 7 to 10 days. I spent greater than 15 minutes for services, including mwnn-bp-rdgn encounter with the patient, discussion of the case, plan of care, and exam; and yewbjqe-qv-jrfz activities, such as reviewing pertinent internet marketing consultant documentation, recent therapy notes, laboratory and radiology studies, and discussion of case with care team including physician, nursing, family service caseworker, and therapists. More than 50 % [...] the chart, including currentorders, allied health and internet marketing consultant notes, labs/imaging and plan of care as above. Documented By: Chante Narayan APRN 10/23/21 1 150 Signed By: <Electronically signed by KRUNAL Narayan> 10/23/21 1157 <Electronically signed by Ghanshyam Kaye MD> 10/25/21 4693 [facility] Work Phone: 1(150) 994-885907-26-2022 History and physical note Author [facility] October 25, 2021 9:36am Note Date/Time October 22, 2021 9:59 am [facility] [address] [place] [address] Physiatry (Rehab) H&P Signed Patient: Anai Goodman MR#: [id number] : 1955 Acct:[id number] Age/Sex: 66 / M Adm Date: 2 Loc: Room: 2A8020-8 Type : ADM IN Attending Dr: Ghanshyam Kaye MD Copies to: KRUNAL Mendez DO Joseph Riley, MD~ <Chante Narayan APRN - Last Filed: 10/22/21 10:24> Date of Service: 10/22/2021 HPI <Chante Narayan APRN - Last Filed: 10/22/21 10:24> The patient was seen and examined on: 10/21/21 History of Present Illness: Mr. Goodman is a 66 year old male who is admitted to [facility] rehab for strengthening s/p planned right BKA. Patient's past medical history significant for DM type II, CAD, AL, s/p pacemaker/defibrillator insertion, CKD, osteomyelitis of the [...] Bisacodyl (Bisacodyl 10 Mg Supp.Rect) 10 mg MO DAILY PRN PRN Reason: Constipation Stop: 10/21/22 17:50 Bumetanide (Bumetanide 2 Mg Tablet) 2 mg PO BID [facility] Stop: 10/21/22 20:59 Last Admin: 10/22/21 08:02 Dose: 2 mg Carvedilol (Carvedilol 6.25 Mg Tablet) 6.25 mg PO BID [facility] Stop: 10/21/22 20:59 Last Admin: 10/22/21 08:02 Dose: 6.25 mg Docusate Sodium (Docusate 100 Mg Capsule) 100 mg PO BID PRN PRN Reason: Constipation Stop: 10/21/22 17:50 Docusate Sodium (Docusate Enema 283 Mg/5 Ml Enema) 283 mg MO DAILY PRN PRN Reason: Constipation Stop: 10/21/22 17:50 Insulin Aspart (Insulin Aspart 300 Units/3 Ml Insuln.Pen) 0 units SUBCUT TID.WM.[facility]; Protocol Stop: 10/21/22 16:59 Last Admin: 10/22/21 08:01 Dose: 1 units Insulin Aspart (Insulin Aspart 300 Units/3 Ml Insuln.Pen) 0 units SUBCUT TID.WITH.MEALS.[facility]; Protocol Stop: 10/21/22 16:59 Last Admin: 10/22/21 08:01 Dose: 4 units Insulin Detemir (Insulin Detemir 300 Units/3 Ml Insuln.Pen) 40 units SUBCUT [facility] Stop: 10/21/22 21:59 Last Admin: 10/21/21 22:02 Dose: 40 units Lactulose (Lactulose 20 Gm/30 Ml Udc) 30 gm PO DAILY PRN PRN Reason: Constipation Stop: 10/21/22 17:50 Losartan Potassium (Losartan 25 Mg Tablet) 25 mg PO QAM [facility] Stop: 10/22/22 08:59 Last Admin: 10/22/21 08:05 Dose: 25 mg Magnesium Oxide (Magnesium Oxide 400 Mg Tablet) 400 mg PO [facility] Stop: 10/22/22 08:59 Last Admin: 10/22/21 08:05 Dose: 400 mg Multivitamins (Multivitamin 1 Tab Tablet) [facility] Stop: 10/22/22 08:59 Last Admin: 10/22/21 08:05 Dose: 1 tab Nitroglycerin (Nitroglycerin 0.4 Mg Tab.Subl) 0.4 mg SUBLINGUAL DAILY PRN PRN Reason: Chest Pain Stop: 10/21/22 15:49 Rivaroxaban (Rivaroxaban 10 Mg Tablet) 10 mg PO DAILY [facility] Stop: 10/22/22 08:59 Last Admin: 10/22/21 08:06 Dose: 10 mg Fluticasone/Salmeterol (Fluticasone/Salmeterol 232-14 Mcg 60 Puff Inhaler) 1 puff INHALATION BID [facility] Stop: 10/21/22 20:59 Last Admin: 10/22/21 05:10 Dose: 1 puff Sennosides (Sennosides 8.6 Mg Tablet) 2 tab PO DAILY@12 PRN PRN Reason: If no BM in 2 days Stop: 10/22/22 11:59 Sodium Chloride (Sodium Chloride 0.9 % 10 Ml Syringe) 0 ml IV-PUSH PRN PRN PRN Reason: Flush Stop: 10/21/22 17:50 Spironolactone (Spironolactone 25 Mg Tablet) 25 mg PO QAM [facility] Stop: 10/22/22 08:59 Last Admin: 10/22/21 08:05 Dose: 25 mg Vitamin D (Cholecalciferol 125 Mcg (5,000 Units) Tablet) 250 mcg PO BID [facility] Stop: 10/21/22 20:59 Last Admin: 10/22/21 08:02 [...] insight good Judgment: judgment good Results <Chante Narayan, KRUNAL - Last Filed: 10/22/21 10:24> Labs Labs: Laboratory Results - last 24 hr 10/21/21 10/22/21 10/22/21 20:20 05:59 06:19 Corrected WBC 6.6 Uncorrected WBC Count 6.6 RBC 3.99 Hgb 11.8 L Hct 34.6 L MCV 86.7 MCH 29.5 MCHC 34.0 RDW 17.8 H Plt Count 148 L MPV 8.8 Neut % (Auto) 70.1 Lymph % (Auto) 10.0 [place] % (Auto) 14.8 Eos % (Auto) 4.5 Baso % (Auto) 0.6 Neut # (Auto) 4.6 Lymph # (Auto) 0.7 L [place] # (Auto) 1.0 H Eos # (Auto) [...] MPV Neut % (Auto) Lymph % (Auto) [place] % (Auto) Eos % (Auto) Baso % (Auto) Neut # (Auto) Lymph # (Auto) [place] # (Auto) Eos # (Auto) Baso # [...] 14 days Expected Discharge Destination: Home Rehabilitation IGC: 05.4 Primary Diagnosis: Right BKA Patient?s/Family?s anticipated [...] 24 hour daily monitoring and intervention from De Icer Element Winder as well as other consulting physicians including internal medicine as well as 24 hour daily operations project manager nursing - for medical safe / optimal [...] equipment to enhance the patient's a functional jewish Ensure adequate nutrition and hydration Sleep: Denies any issues Pain: Denies any issues Discharge planning: Home with in 7 to 10 days. I spent greater than 30 minutes for services, including zcva-wv-yimb encounter with the patient, discussion of the case, plan of care, and exam; and xxbupop-kh-ihof activities, such as reviewing pertinent internet marketing consultant documentation, recent therapy notes, laboratory and radiology studies, and discussion of case with care team including physician, nursing, family service caseworker, and therapists. More than 50 % [...] Allied health note review, nursing note review, internet marketing consultant note review, discussion with nursing and [...] chart, including current orders, allied health and internet marketing consultant notes, labs/imaging and performed rosado elements of exam and I formulated the plan of care and facilitated the medical decision making and confirmed the nurse practitioner note, as above Documented By: Chante Narayan APRN 10/22/21 0 949 Signed By: <Electronically signed by KRUNAL Narayan> 10/22/21 1024 <Electronically signed by Ghanshyam Kaye MD> 10/25/21 0936 [facility] Work Phone: 1(433) 292-923207-24-2022 Progress note Author [facility] October 23, 2021 3:11pm Note Date/Time October 23, 2021 3:11 pm [facility] [address] [place], [place] [id number] Hospitalist Progress Note Signed Patient: Anai Goodman MR#: [id number] : 1955 Acct:[id number] Age/Sex: 66 / M Adm Date: 2 Loc: Room: 7Z4543-6 Type : ADM IN Attending Dr: Ghanshyam [...] Allergies and Active Meds Allergies chlorpheniramine [From ssionex] Allergy (Verified 10/18/21 [...] mg 10/21/21 17:51 Bisacodyl 10 Mg Supp.Rect MO 10/21/22 17:50 DAILY PRN Constipation Bumetanide 1 [...] 17:51 Docusate Enema 283 Mg/5 Ml Enema MO 10/21/22 17:50 DAILY PRN Constipation Insulin Aspart 0 units 10/21/21 17:00 10/23/21 13:13 Insulin Aspart 300 Units/3 Ml Insuln.Pen SUBCUT 10/21/22 16:59 2 units TID.WM.[facility] Administration Protocol Insulin Aspart 0 units 10/21/21 17:00 10/23/21 13:14 Insulin Aspart 300 Units/3 Ml Insuln.Pen SUBCUT 10/21/22 16:59 5 units TID.WITH.MEALS.[facility] Administration Protocol Insulin Detemir 40 units 10/21/21 22:00 10/22/21 20:27 Insulin Detemir 300 Units/3 Ml Insuln.Pen SUBCUT 10/21/22 21:59 40 units QHS [facility] Administration Lactulose 30 gm 10/21/21 17:51 Lactulose 20 Gm/30 Ml Udc PO 10/21/22 17:50 DAILY PRN Constipation Losartan Potassium 25 mg 10/22/21 09:00 10/23/21 09:07 Losartan 25 Mg Tablet PO 10/22/22 08:59 [facility] Administration Magnesium Oxide 400 mg 10/22/21 09:00 10/23/21 09:07 Magnesium Oxide 400 Mg Tablet PO 10/22/22 08:59 400 mg QAM [facility] Administration Multivitamins 1 tab 10/22/21 09:00 10/23/21 09:07 Multivitamin 1 Tab Tablet PO 10/22/22 08:59 1 tab QAM [facility] Administration Nitroglycerin 0.4 mg 10/21/21 15:50 Nitroglycerin [...] Losartan, Spironolactone 2.? GRACY on CPAP 3. [id number]-R5v 7.3, continue detemir, SSI 4. CKD 3?trend [...] PCP and out patient providers to obtain [facility] record entirely to follow up on illnesses, symptoms, abnormal findings that I have and have not addressed duringthis encounter and hospitalization in out patient setting. Documented By: Bronwyn Alegre MD 10/23/21 1509 Signed By: <Electronically signed by Bronwyn Alegre MD> 10/23/21 1510 [facility] Work Phone: 1(912) 277-796707-24-2022 Consult note Author [facility] October 23, 2021 7:04am Note Date/Time October 22, 2021 4:18 pm [facility] [address] [place] [address] Hospitalist Consult Note Signed Patient: Anai Goodman MR#: [id number] : 1955 Acct:[id number] Age/Sex: 66 / M Adm Date: 2 Loc: Room: 9G3187-8 Type : ADM IN Attending Dr: Ghanshyam [...] negative unless noted below or in HPI [facility] Attestation Statement: The following information was [...] mg 10/21/21 17:51 Bisacodyl 10 Mg Supp.Rect MO 10/21/22 17:50 DAILY PRN Constipation Bumetanide 2 [...] 17:51 Docusate Enema 283 Mg/5 Ml Enema MO 10/21/22 17:50 DAILY PRN Constipation Insulin Aspart 0 units 10/21/21 17:00 10/22/21 12:45 Insulin Aspart 300 Units/3 Ml Insuln.Pen SUBCUT 10/21/22 16:59 2 units TID.WM. CB Administration Protocol Insulin Aspart 0 units 10/21/21 17:00 10/22/21 12:46 Insulin Aspart 300 Units/3 Ml Insuln.Pen SUBCUT 10/21/22 16:59 2 units TID.WITH.MEALS. CB Administration Protocol Insulin Detemir 40 units 10/21/21 [...] % (Auto) 70.1, Lymph % (Auto) 10.0, [place] % (Auto) 14.8, Eos % (Auto) 4.5, Baso % (Auto) 0.6, Neut # (Auto) 4.6, Lymph # (Auto) 0.7 L, [place] # (Auto) 1.0 H, Eos # (Auto) [...] Losartan, Spironolactone 2.? GRACY on CPAP 3. [id number] 7.3, continue detemir, SSI 4. CKD 3?trend labs Documented By: ABDIRASHID Olmedo 2 1618 Signed By: <Electronically signed by ABDIRASHID Matias> 10/22/21 1658 <Electronically signed by Bronwyn Alegre MD> 10/23/21 0704 [facility] Work Phone: 1(542) 323-911807-22-2022 Progress note Author [facility] October 21, 2021 8:37am Note Date/Time October 20, 2021 11:0 8am [facility] [address] [place] [address] Hospitalist Progress Note Signed Patient: Anai Goodman MR#: [id number] : 1955 Acct:[id number] Age/Sex: 66 / M Adm Date: 2 Loc: Room: [address] [place] [address] Type : ADM IN Attending Dr: Reddy [...] Lactated Ringers IV 10/18/22 07:29 Not Given .[id number] CB Insulin Aspart 0 units 10/18/21 08:00 [...] signed by Rodriguez Loera MD> 10/21/21 0837 [facility] Work Phone: 1(138) 199-664207-21-2022 Progress note Author [facility] October 20, 2021 8:45am Note Date/Time October 19, 2021 11:2 8am [facility] [address] [place] [address] Hospitalist Progress Note Signed Patient: Anai Goodman MR#: [id number] : 1955 Acct:[id number] Age/Sex: 66 / M Adm Date: 2 Loc: Room: [address] [place] [address] Type : ADM IN Attending Dr: Reddy [...] Lactated Ringers IV 10/18/22 07:29 75 mls/hr .[id number] CB Administration Insulin Aspart 0 units 10/18/21 [...] Syringe IV-PUSH 10/18/22 13:59 Not Given QSHIFT BC Sodium Chloride 0 ml 10/18/21 11:24 Sodium [...] signed by Rodriguez Loera MD> 10/20/21 0845 [facility] Work Phone: 1(639) 937-412607-20-2022 Progress note Author [facility] October 19, 2021 12:11pm Note Date/Time October 19, 2021 12:1 1pm [facility] [address] [place] [address] Orthopedic Progress Note Signed Patient: Anai Goodman MR#: [id number] : 1955 Acct:[id number] Age/Sex: 66 / M Adm Date: 2 Loc: 4N Room: [address] [place] [address] Type : ADM IN Attending Dr: Reddy [...] signed by Reddy Brandt DO> 10/19/21 1211 [facility] Work Phone: 1(561) 296-598807-20-2022 Consult note Author [facility] October 19, 2021 1:42am Note Date/Time October 19, 2021 1:11 am [facility] [address] [place] [address] Hospitalist Consult Note Signed Patient: Anai Goodman MR#: [id number] : 1955 Acct:[id number] Age/Sex: 66 / M Adm Date: 2 Loc: 4N Room: [address] [place] [address] Type : ADM IN Attending Dr: Reddy [...] negative unless noted in the HPI below [facility] Attestation Statement: The following information was [...] Lactated Ringers IV 10/18/22 07:29 75 mls/hr .[id number] CB Administration Cefazolin Sodium 1 gm in [...] Insuln.Pen SUBCUT 10/18/22 07:59 6 units TID.WM.HS [facility] Administration Protocol Insulin Aspart 0 units 10/18/21 17:00 10/18/21 23:37 Insulin Aspart 300 Units/3 Ml Insuln.Pen SUBCUT 10/18/22 16:59 Not Given TID.WM.HS [facility] Insulin Detemir 40 units 10/18/21 22:00 10/18/21 21:39 Insulin Detemir 300 Units/3 Ml Insuln.Pen SUBCUT 10/18/22 21:59 40 units QHS CB Administration Losartan Potassium 25 mg 10/19/21 09:00 Losartan 25 Mg Tablet PO 10/19/22 08:59 QAM [facility] Magnesium Oxide 400 mg 10/19/21 09:00 Magnesium Oxide 400 Mg Tablet PO 10/19/22 08:59 QAM [facility] Multivitamins 1 tab 10/19/21 09:00 Multivitamin 1 Tab Tablet PO 10/19/22 08:59 QAM [facility] Nitroglycerin 0.4 mg 10/18/21 15:44 Nitroglycerin 0.4 [...] signed by Stewart Lucio MD> 10/19/21 0142 [facility] Work Phone: 1([phone]) 293-693607-13-2022 Evaluation note* Encounter Date Diagnosis Assessment Notes [...] poor healing. 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 I have [...] Sep, S/P ankle fusion (ICD-10 - Z98.1) 13 Sep, 2021 Other chronic osteomyelitis of right tibia (ICD-10 - M86.661) sliceX Other 07-07-2022 Evaluation note* Encounter Date Diagnosis Assessment Notes Treatment Notes Treatment Clinical Notes Sep, Other chronic osteomyelitis of right tibia (ICD-10 - M86.661) sliceX Other 07-07-2022 Evaluation note* Encounter Date Diagnosis [...] place his pacemaker into MRI mode. Anyway geology technician was very helpful and she is [...] worse they are to call me [facility]. sliceX Other 06-09-2022 Evaluation note* Encounter Date Diagnosis [...] to a suppressive dose at that time sliceX Other 11-23-2021 NoteChief Complaint Basal cell carcinoma [...] 03/03/2021 PATIENT : 1955 LOCATION OF PROCEDURE: [facility] SURGEON: Chirag Gutierrez DO INFORMED CONSENT: Obtained by and on file at [facility] CC: [Basal cell carcinoma left ear post [...] get a repeat audiogr (more content not included)...[facility]10-11-2021 NoteChief Complaint Open wound Left ear History of Present Illness PLANNED PROCEDURE: Excision and preparation of surgical site, complex plastics myocutaneous advancement flap tear of left ear defect DATE OF PROCEDURE: 01/11/2021 PATIENT : 1955 LOCATION OF PROCEDURE: [facility], SURGEON: Chirag Gutierrez DO INFORMED CONSENT: Obtained by and on file at [facility] CC: Basal cell carcinoma left ear HPI: [...] reconstruction amputation of le (more content not included)...[facility] 01-05-2021 NoteChief Complaint MOHs procedure [...] Dr. Freed. Previous pathology by physician in [place] about 1 year ago. PMHx of multiple [...] This patient presented to the [facility] with a chief concern of skin [...] and corroborated preoperatively wit (more content not included)...[facility]10-06-2021 NoteClinical Information Procedure: Excision with frozen section left ear Pre-operative diagnosis: Basal cell carcinoma Outside pathology report from [facility] was received with accession number [id number]. SP Specimen A Skin of left ear, [...] skin without gross lesi (more content not included)...[facility]:Performed By: #### SPR ####[facility] (DEFAULT)[address] [place], [place] [address]Empvkcmfn summary Author [facility] October 28, 2021 10:30am Note Date/Time October 27, 2021 1:34 pm [facility] [address] [place] [address] Discharge Summary Signed Patient: Anai Goodman MR#: [id number] : 1955 Acct:[id number] Age/Sex: 66 / M Adm Date: 2 Loc: Room: 4Y4236-[address]: Ghanshyam Kaye MD Copies to: [...] Primary Care Provider: Deon Braxton Discharge Diagnosis <hCante Narayan APRN - Last Filed: 10/27/21 13:34> [...] year old [facility] who [facility]p planned right BKA. His past medical history significant for DM type II, CAD, AL, s/p pacemaker/defibrillator insertion, CKD, osteomyelitis of the [...] Patient's was on Xarelto while inpatient. Per [facility] , insurance co-pay would be over [...] year old male who was [facility] s/p planned right BKA. His past medical history significant for DM type II, CAD, AL, s/p pacemaker/defibrillator insertion, CKD, osteomyelitis of the [...] Patient's was on Xarelto while inpatient. Per [facility] , insurance co-pay would be over$120 [...] home prior. Your Home Health agency is [facility] ( ). They will usually contact you [...] them prior to your appointment. Instructions: Amputation, Cotcy-oiu-Qese (DC) Stand Alone Forms: Insulin Corrective Scale [...] signed by Ghanshyam Kaye MD> 10/28/21 1030 [facility] Work Phone: Evaluation noteNo [facility] [employer] Other Evaluation note* Diagnosis Onset Date Resolution Status Below knee amputation acute Type 2 diabetes mellitus acu te [facility] Work Phone: Evaluation note* [...] wound of skin acute Wound dehiscence acute [facility] Work Phone: evaluation note* Diagnosis Onset Date Resolution Status Below knee amputation acute Dehiscence of wound of skin acute Wound dehiscence acute [facility] Work Phone: Evaluation noteNo assessment information available [facility] Work Phone: evaluation note* Diagnosis Preop cardiovascular exam- Primary Pre-operative cardiovascular examination Coronary artery disease involving knik coronary artery of knik heart without angina pectoris Ischemic cardiomyopathy Other specified forms of chronic ischemic heart disease Chronic systolic congestive heart failure ([facility]) Apical mural thrombus Essential (primary) hypertension Unspecified essential hypertension Cardiac defibrillator in place- [employer] Automatic implantable cardiac defibrillator in situ Mixed hyperlipidemia [facility] [employer] SystemEvaluation note* Diagnosis Type 2 diabetes mellitus with diabetic neuropathic arthropathy, with long-term current use of insulin ([facility]) [facility] Diagnosis Pure hypercholesterolemia documented in this encounter [facility] [employer] SystemEvaluation note* Diagnosis Chronic systolic congestive heart failure ([facility]) documented in this encounter [facility] [employer] SystemHistory general Narrative - Reported* Type Description Date Medical History DM1 Medical History HTN Medical History HYPERLIPEDEMIA Surgical History LEFT FOOT SURGERY WITH REMOVAL OF ALL FIVE TOES Surgical History heart cath with 5 [address] placem ent Hospitalization History MRSA 2011 Hospitalization History [facility] Other [facility] general Narrative - Reported* Type Description Date Medical History DM1 Medical History HTN Medical History HYPERLIPEDEMIA Surgical History LEFT FOOT SURGERY WITH REMOVAL OF ALL FIVE TOES Surgical History heart cath with 5 stents placem ent Surgical History right transtibial be low-knee amputation, right fibular osteotomy 10/17/21 Hospitalization History MRSA 2011 Hospitalization History [facility] Other Hisxaiy general Narrative - Reported* Type Description Date [...] Heart Hospitalization History see above surg. hx. sliceX Other InstructionsNot on filedocumented in this encounter [facility] SystemInstructionsNot on filedocumented in this encounter [facility] SystemInstructionsNot on filedocumented in this encounter [facility] SystemInstructionsNot on filedocumented in this encounter [employer] System Summary Purpose Family History Relationship Condition Age at Onset Recorded Date/T tariq Not Specified Type 1 diabetes mellitus Unknown father Heart disease Unknown Advance Directives Advance Directive Response Recorded Date/ Time Advance [...] post op - Sent by Dr Barbosa Osteomylitis Right Tibia rt leg blleding recent [...] yelitis of right tibia (M86.661) Referral Organization [facility] Referring Provider First Name Reddy [...] section and content) DATE CREATED AUTHOR 05/12/2020 [facility] DATE CREATED AUTHOR AUTHOR'S ORGANIZ ATION 05/26/2021 [facility] DATE CREATED AUTHOR AUTHOR'S ORGANIZ ATION 08/23/2021 [facility] DATE CREATED AUTHOR AUTHOR'S ORGANIZ ATION 11/02/2021 [facility] DATE CREATED AUTHOR AUTHOR'S ORGANIZ ATION 03/23/2023 [facility] DATE CREATED AUTHOR AUTHOR'S ORGANIZ ATION [facility]/08/20[facility] DATE CREATED AUTHOR AUTHOR'S ORGANIZ ATION [facility]20[facility] DATE CREATED AUTHOR AUTHOR'S ORGANIZ ATION 05/11/2023 [place] REASON FOR VISIT (unrecogniz ed section and content) Reason Comments Pre-op Exam EST PT PRE OP DR MARIXA Brown SURG DR LEE Reason Onset Date Comments Med Refill 04/13/2023 Reason Comments Med Refill Care Teams (unrecognized sec tion and content) Team Status: Inactive Member Role Status Dates Deon Braxton , DO Primary Care Provider Active Reddy Brandt , DO Attending Provider Active Team Status: Inactive Member Role Status Dates Deon Braxton , DO Primary Care Provider Active Reddy Brandt , DO Admit Provider, Attending Provide r Active Jessy Hope , RN Other Provider Active Marci Ruiz , RN Other Provider Active Aliza Sorensen , RN Other Provider Active Tatiana Jasso , NBA Other Provider Active Rahda Frederick , NBA Other Provider Active Jana Parmar , NBA Other Provider Active Fredi Mendez MD Other Provider Active Drea Galvin ONLINE AFFILIATE MARKETING MANAGER Other Provider Active Julia Segura , DO [...] Murillo MD Other Provider Active Mai Britton CONTENT PUBLISHER-C Other Provider Active Christiano Evans MD Other Provider Active Isidro Antunez MD Other Provider Active Rosalind Coburn MD Other Provider Active Bill Osei MD Other Provider Active Lizbteh Mcbride , DO Other Provider Active Fabio Sanchez MD Other Provider Active Kwesi Muhammad , DO Other Provider Active Bre Patel APRN Other Provider Active Bin Carrera , DO Other Provider Active Patti Taylor MD Other Provider Active Kassandra Munoz , NBA Other Provider Active Team Status: Inactive Member Role Status Deon Braxton , DO Primary Care Provider Active Reddy Brandt , DO Referring Provider Active Darien Bailey , CONTENT PUBLISHER-C Attending Provider Activ e Team Status: Active Member Role Status Deon Braxton , DO Primary Care Provider Active Team Status: Inactive Member Role Status Deon Braxton , DO Primary Care Provider Active Christiano J Palacios , PA-C Emergency Provider Active Team Status: Inactive Member Role Status Dates Deon Braxton , DO Primary Care Provider Active Ghanshyam Kaye MD Admit Provider, Attending Provider A ctive Jessy Hope , RN Other Provider Active Marci Ruiz , RN Other Provider Active Aliza Sorensen , RN Other Provider Active Tatiana Jasso , RN Other Provider Active Radha Frederick , NBA Other Provider Active Jana Parmar , NBA Other Provider Active Bronwyn Alegre MD Other Provider Active Fredi Mendez MD Other Provider Active Drea Galvin APRN Other Provider Active Julia Segura , DO Other Provider Active Armando Hanks MD Other Provider Active Golden Whatley , DO Other Provider Active Adi Feng MD Other Provider Active Letty Turpin MD Other Provider Active Faviola Matias , ANP- Other Provider Active Brett Muñoz MD Other Provider Active Dennis Larson MD Other Provider Active Rodriguez Loera MD Other Provider Active Cuauhtemoc Ramos MD Other Provider Active Darien Maria MD Other Provider Active Stewart Lucio MD Other Provider Active Sonido Murillo MD Other Provider Active Mai Britton , CONTENT PUBLISHER-C Other Provider Active Christiano Evans MD Other [...] DO Admit Provider, Attending Provide r Active Senior [employer] Relationship Specialty Start Date End Date Deon Braxton, [place] [facility] [place] [address] PCP - General Internal Medicine 01/22/17 Senior [employer] Relationship Specialty Start Date End Date Deon Braxton [address] [place] [address] PCP - General Internal Medicine 01/22/17 Team Status: Inactive Member Role Status Dates Deon Braxton DO Primary Care Provider Active Sta rt: April 19, 2023 End: April 19, 2023 Salina Lee DPM MS Attending Provider Active Start: April 19, 2023 End: April 19, 2023 Senior [employer] Relationship Specialty Start Date End Date RichardDeon florian [address] [place] [address] PCP - General Internal Medicine 01/22/17 Senior [employer] Relationship Specialty Start Date End Date TashaDeon thompson [address] [place] [address] PCP - General Internal Medicine 01/22/17 Goals [...] BE BASED ON THE PRIMARY CLINICAL RECORDS. [employer] provides no warranty or guarantee of the accuracy or completeness of information in this document.
== END 2023-05-17 14:07 | disposition home or self-care (01) ==
LOC: WC 14:06
PROVIDERS: PCP Internal Medicine; Visit Provider Podiatrist Foot & Ankle Surgery
DX: L89.523 Pressure ulcer of left ankle, stage 3 (principal)
CPT/HCPCS: G0463

== ENCOUNTER 2023-05-22 12:59 | Outpatient (OUT) | payer MEDICARE, SELFPAY | END 2023-05-22 13:00 | disposition home or self-care (01) | LOC: WC 12:59 | PROVIDERS: PCP Internal Medicine; Visit Provider Podiatrist Foot & Ankle Surgery | DX: L89.523 Pressure ulcer of left ankle, stage 3 (principal) | CPT/HCPCS: 11042 ==

== ENCOUNTER 2023-06-12 15:44 | Outpatient (OUT) | payer MEDICARE, SELFPAY | END 2023-06-12 15:45 | disposition home or self-care (01) | LOC: WC 15:44 | PROVIDERS: PCP Internal Medicine; Visit Provider Physician Assistant | DX: L89.523 Pressure ulcer of left ankle, stage 3 (principal); L89.892 Pressure ulcer of other site, stage 2 | CPT/HCPCS: A6213; G0463 ==

== ENCOUNTER 2023-06-18 11:44 | Outpatient (OUT) | payer MEDICARE, SELFPAY ==
--- NOTE | 2023-06-18 | XR_ITS ---
The [address] [address] Patient Name: ANAI PELAYO MRN: [id number] date: 1955 Sex: M Assigned Patient Location: Current Patient Location: Accession/Order Number: [id number] Exam Date: 06/18/2023 11:47 Report Date: 06/18/2023 13:41 At the request of: SUMMER GAINES Procedure: XR knee RT 2V PROCEDURE: XR knee RT 2V COMPARISON: None. HISTORY: RIGHT KNEE PAIN FINDINGS: BONES:Remote amputation along the proximal diaphysis of the tibia and fibula. Severe degenerative changes of the knee with jzcr-dq-wdoc articulation the medial compartment. SOFT TISSUES:1.2 x 0.4 cm area of air density lateral to the fibular head EFFUSION:None visible. OTHER: Call results initiated through operations. XR/XR knee RT 2V IMPRESSION: Possible subcutaneous air lateral to the fibular head, clinically correlate to exclude gas-forming organism Electronically authenticated by: ANAI SHERIFF Date: 06/18/2023 13:41
== END 2023-06-18 11:45 | disposition home or self-care (01) ==
LOC: WC 11:44
PROVIDERS: PCP Internal Medicine; Visit Provider Physician Assistant
DX: E11.622 Type 2 diabetes mellitus with other skin ulcer (principal); L97.818 Non-pressure chronic ulcer of other part of right lower leg with other specified severity; M25.561 Pain in right knee; M17.11 Unilateral primary osteoarthritis, right knee
CPT/HCPCS: 10061; 73560; A6213

== ENCOUNTER 2023-06-18 16:34 | Outpatient (REF) | payer MEDICARE, SELFPAY | END 2023-06-18 16:35 | disposition home or self-care (01) | LOC: LAB 16:34 | PROVIDERS: PCP Internal Medicine; Visit Provider Physician Assistant | DX: L02.415 Cutaneous abscess of right lower limb (principal) | CPT/HCPCS: 87070; 87150; 87186 ==

== ENCOUNTER 2023-06-20 09:40 | Outpatient (OUT) | payer MEDICARE, SELFPAY | END 2023-06-20 09:41 | disposition home or self-care (01) | LOC: WC 09:40 | PROVIDERS: PCP Internal Medicine; Visit Provider Podiatrist Foot & Ankle Surgery | DX: E11.622 Type 2 diabetes mellitus with other skin ulcer (principal); L97.818 Non-pressure chronic ulcer of other part of right lower leg with other specified severity | CPT/HCPCS: A6213; G0463 ==

== ENCOUNTER 2023-06-20 09:52 | Inpatient (IN) | payer MEDICARE, SELFPAY ==
[2023-06-20] VITALS (27 sets, daily range): BP systolic 121–145; BP diastolic 64–92; PULSE 71–77; RESP 14–24; TEMP 36.4–36.8; O2SAT 93–99; BMI 29.2; BMI 26.4
--- NOTE | 2023-06-20 10:00 | XR_ITS ---
The [address] [address] Patient Name: ANAI PELAYO MRN: [id number] date: 1955 Sex: M Assigned Patient Location: ER Current Patient Location: Accession/Order Number: [id number] Exam Date: 06/20/2023 10:35 Report Date: 06/20/2023 11:00 At the request of: CECILY SALAZAR Procedure: XR knee RT 2V EXAM: XR knee RT 2V HISTORY: Draining abscess, previous BKA COMPARISON: Right knee series dated 06/18/2023. TECHNIQUE: AP and crosstable lateral views of the right knee performed. FINDINGS: The bony structures are osteopenic. There is a stable hfujl-vpe-ntna amputation. The hypertrophic bone along the inferior aspect of the tibia is stable. There is no fracture. There is no osseous destruction, osseous erosion or periostitis. There are no definite findings of acute osteomyelitis. There is increased prominence of the soft tissues along the inferior aspect of the amputation which may be secondary to the infectious process described in the clinical information. There is a persistent small gas shadow within the subcutaneous tissues lateral to the fibular head. There is chondrocalcinosis at the knee. There are tricompartmental degenerative changes, moderately severe along the medial compartment of the femoral-tibial articulation and moderate at the lateral compartment of the femoral-tibial and patellofemoral articulations. There is no joint effusion at the knee. There are multivessel atheromatous calcifications. XR/XR knee RT 2V IMPRESSION: There is a stable kwnxb-fna-sytj amputation. The hypertrophic bone along the inferior aspect of the tibia is stable. There is no fracture. There is no osseous destruction, osseous erosion or periostitis. There are no definite findings of acute osteomyelitis. There is increased prominence of the soft tissues along the inferior aspect of the amputation which may be secondary to the infectious process described in the clinical information. There is a persistent small gas shadow within the subcutaneous tissues lateral to the fibular head. Electronically authenticated by: SALINA HUFF Date: 06/20/2023 11:00
--- NOTE | 2023-06-20 10:03 | ED.WOUNDLAC1 ---
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 He has a draining abscess on his right lower leg laterally below his knee. He had previous BKA. No fever or vomiting. Related Data Home Medications ?Medication ?Instructions ?Recorded ?Confirmed albuterol sulfate 90 mcg/actuation 2 inh inhalation Q6H PRN shortness 04/16/23 04/19/23 aerosol inhaler (ProAir HFA) of breath or wheezing allopurinol 100 mg tablet 200 mg PO DAILY 04/16/23 04/19/23 apixaban 5 mg tablet (Eliquis) 5 mg PO BID 04/16/23 04/19/23 ascorbic acid (vitamin C) 500 mg 500 mg PO DAILY 04/16/23 04/19/23 capsule aspirin 81 mg tablet,delayed 81 mg PO DAILY 04/16/23 04/19/23 release (Adult Aspirin Regimen) atorvastatin 80 mg tablet 80 mg PO DAILY 04/16/23 04/19/23 bumetanide 2 mg tablet 1 mg PO BID 04/16/23 04/19/23 carvedilol 6.25 mg tablet 6.25 mg PO BID 04/16/23 04/19/23 cholecalciferol (vitamin D3) 125 5,000 unit PO DAILY 04/16/23 04/19/23 mcg (5,000 unit) capsule coQ10 (ubiquinol) 100 mg capsule 100 mg PO DAILY 04/16/23 04/19/23 (Qunol Cory CoQ10) dapagliflozin propanediol 10 mg 10 mg PO DAILY 04/16/23 04/19/23 tablet (Farxiga) fluticasone furoate 200 1 inh inhalation DAILY 04/16/23 04/16/23 mcg-vilanterol 25 mcg/dose inhalation powder (Breo Ellipta) insulin (unknown name) 04/16/23 losartan 25 mg tablet (Cozaar) 25 mg PO DAILY 04/16/23 04/19/23 magnesium oxide 400 mg PO DAILY 04/16/23 04/19/23 multivitamin (Daily Multi-Vitamin 1 tab PO DAILY 04/16/23 04/19/23 tablet) nitroglycerin 0.4 mg sublingual 0.4 mg sublingual Q5M 04/16/23 04/19/23 tablet (Nitrostat) prednisone 5 mg tablet 5 mg PO .COMPLEX 04/16/23 04/19/23 spironolactone 25 mg tablet 25 mg PO DAILY 04/16/23 04/19/23 Previous Rx's ?Medication ?Instructions ?Recorded ondansetron 4 mg disintegrating 4 mg PO Q8H PRN nausea and 04/19/23 tablet vomiting 5 days #15 tabs oxycodone-acetaminophen 5 mg-325 1 tab PO Q8H PRN pain 7 days #21 04/19/23 mg tablet (Percocet) tabs sulfamethoxazole 800 1 tab PO BID 14 days #28 tabs 04/24/23 mg-trimethoprim 160 mg tablet Allergies Allergy/AdvReac Type Severity Reaction Status Date / Time chlorpheniramine Allergy Hives Verified 06/20/23 12:02 dextromethorphan Allergy Hives Verified 06/20/23 12:02 doxycycline Allergy Verified 06/20/23 12:02 hydrocodone [From Tussionex] Allergy Hives Verified 06/20/23 12:02 levofloxacin Allergy Chest Pain Verified 06/20/23 12:02 Review of Systems ROS Narrative A ten point review of systems is negative except as noted above. [facility] Medical History (Updated 06/20/23 @ 11:21 by Vijay Fitzpatrick MD) Arthritis ?M19.90 - Unspecified osteoarthritis, unspecified site (ICD-10) MRSA (methicillin resistant Staphylococcus aureus) ?A49.02 - Methicillin resistant Staphylococcus aureus infection, unspecified site (ICD-10) Peptic ulcer ?K27.9 - Peptic ulcer, site unspecified, unspecified as acute or chronic, without hemorrhage or perforation (ICD-10) Skin cancer ?C44.90 - Unspecified malignant neoplasm of skin, unspecified (ICD-10) Bronchitis ?J40 - Bronchitis, not specified as acute or chronic (ICD-10) Seizures ?R56.9 - Unspecified convulsions (ICD-10) Myocardial infarction (2015) ?I21.9 - Acute myocardial infarction, unspecified (ICD-10) Above knee amputation of right lower extremity ?S78.111A - Complete traumatic amputation at level between right hip and knee, initial encounter (ICD-10) Osteomyelitis ?M86.9 - Osteomyelitis, unspecified (ICD-10) Chronic ulcer of left ankle ?L97.329 - Non-pressure chronic ulcer of left ankle with unspecified severity (ICD-10) Diabetic neuropathy ?E11.40 - Type 2 diabetes mellitus with diabetic neuropathy, unspecified (ICD-10) Sleep apnea ?G47.30 - Sleep apnea, unspecified (ICD-10) Diabetic retinopathy ?E11.319 - Type 2 diabetes mellitus with unspecified diabetic retinopathy without macular edema (ICD-10) 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 - Other specified disease of esophagus (ICD-10) Chronic kidney disease ?N18.9 - Chronic kidney disease, unspecified (ICD-10) GERD (gastroesophageal reflux disease) ?K21.9 - Gastro-esophageal reflux disease without esophagitis (ICD-10) Hypercalcemia ?E83.52 - Hypercalcemia (ICD-10) Sarcoidosis ?D86.9 - Sarcoidosis, unspecified (ICD-10) COPD (chronic obstructive pulmonary disease) ?J44.9 - Chronic obstructive pulmonary disease, unspecified (ICD-10) Diverticulosis ?K57.90 - Diverticulosis of intestine, part unspecified, without perforation or abscess without bleeding (ICD-10) Colon polyp ?K63.5 - Polyp of colon (ICD-10) Hearing loss ?H91.90 - Unspecified hearing loss, unspecified ear (ICD-10) CAD (coronary artery disease) ?I25.10 - Atherosclerotic heart disease of [place] coronary artery without angina pectoris (ICD-10) Chronic systolic (congestive) heart failure ?I50.22 - Chronic systolic (congestive) heart failure (ICD-10) Diabetes ?E11.9 - Type 2 diabetes mellitus without complications (ICD-10) Hyperlipemia ?E78.5 - Hyperlipidemia, unspecified (ICD-10) Ischemic cardiomyopathy ?I25.5 - Ischemic cardiomyopathy (ICD-10) Apical mural thrombus ?I51.3 - Intracardiac thrombosis, not elsewhere classified (ICD-10) Hypertension ?I10 - Essential (primary) hypertension (ICD-10) Cardiac defibrillator in place ?Z95.810 - Presence of automatic (implantable) cardiac defibrillator (ICD-10) Surgical History (Updated 04/16/23 @ 09:14 by Terese Puga NP) H/O foot surgery ?Z98.890 - Other specified postprocedural states (ICD-10) History of excision of lesion ?Z98.890 - Other specified postprocedural states (ICD-10) ?Z87.2 - Personal history of diseases of the skin and subcutaneous tissue (ICD-10) History of cardiac catheterization ?Z98.890 - Other specified postprocedural states (ICD-10) History of heart artery stent ?Z95.5 - Presence of coronary angioplasty implant and graft (ICD-10) History of cholecystectomy ?Z90.49 - Acquired absence of other specified parts of digestive tract (ICD-10) History of arthroscopy of knee ?Z98.890 - Other specified postprocedural states (ICD-10) History of foot surgery ?Z98.890 - Other specified postprocedural states (ICD-10) H/O hand surgery ?Z98.890 - Other specified postprocedural states (ICD-10) History of colonoscopy ?Z98.890 - Other specified postprocedural states (ICD-10) History of esophagogastroduodenoscopy (EGD) ?Z98.890 - Other specified postprocedural states (ICD-10) History of ankle surgery ?Z98.890 - Other specified postprocedural states (ICD-10) Family History (Updated 04/16/23 @ 08:29 by Terese Puga NP) Other Family history of diabetes mellitus Family history of hypertension Heart disease Social History (Updated 04/19/23 @ 09:22 by Chey Conde) Within the past year, how often did you have a drink containing alcohol: monthly or less Smoking status: Never smoker Non-prescribed substance use: denies use Previous occupational history: retired Highest level of school completed/degree received: high school graduate Exam Narrative Exam Narrative: Nurses note and vital signs reviewed and patient is not hypoxic. General: The patient appears well and in no apparent distress. Patient is resting comfortably on cart. Skin: Warm, dry, no pallor noted. There is no rash noted. Head: Normocephalic, atraumatic Eye: Normal conjunctiva, no drainage Ears, Nose, Mouth, and Throat: oral mucosa is moist. Nares patent. Cardiovascular: Regular Rate and Rhythm Respiratory: Patient is in no distress, no accessory muscle use, lungs are clear to auscultation, no wheezing, rales or rhonchi Back: non-tender GI: Soft and nontender Musculoskeletal: He has had previous right BKA. Below the knee and above the stump laterally he has a draining open area with erythema. Neurological: A&O, normal speech, hard of hearing Psychiatric: Cooperative Constitutional Vital Signs, click to edit/add: Last Vital Signs Temp 97.8 F 06/20/23 10:26 Pulse 71 06/20/23 10:26 Resp 14 06/20/23 10:34 BP 124/74 06/20/23 10:26 Pulse Ox 96 06/20/23 10:34 O2 Del Method Room Air 06/20/23 10:34 Course Vital Signs Vital signs: Vital Signs Temperature 97.5 F L 06/20/23 10:00 Pulse Rate 76 06/20/23 10:00 Respiratory Rate 24 06/20/23 10:00 Blood Pressure 124/64 06/20/23 10:00 Pulse Oximetry 98 06/20/23 10:00 Temperature 97.8 F 06/20/23 10:26 Pulse Rate 71 06/20/23 10:26 Respiratory Rate 14 06/20/23 10:34 Blood Pressure 124/74 06/20/23 10:26 Pulse Oximetry 96 06/20/23 10:34 Oxygen Delivery Method Room Air 06/20/23 10:34 MDM - Wound/Laceration MDM Narrative Medical decision making narrative: Workup is nonspecific. The patient is being admitted for surgical drainage tomorrow. He was given IV vancomycin and Zosyn. Differential Diagnosis Differential diagnosis: Likely abscess and other (Cellulitis) Lab Data Attestation: I reviewed the patient's lab results. Labs: Lab Results 06/20/23 Range/Units 10:05 WBC 9.2 (4.0-11.0) 10^3/uL RBC 4.30 L (4.70-6.10) 10^6/uL Hgb 13.3 L (14.0-18.0) g/dL Hct 40.4 L (42.0-54.0) % MCV 94.0 (80.0-94.0) fL MCH 30.9 (25.9-34.0) pg MCHC 32.9 (29.9-35.2) g/dL RDW 14.4 (11.0-15.0) % Plt Count 140 L (150-450) 10^3/uL MPV 11.3 (9.5-13.5) fL Neut % (Auto) 77.7 H (43.0-75.0) % Lymph % (Auto) 6.1 L (20.5-60.0) % [place] % (Auto) 12.7 H (1.7-12.0) % Eos % (Auto) 3.0 (0.9-7.0) % Baso % (Auto) 0.3 (0.2-2.0) % Neut # (Auto) 7.1 H (1.4-6.5) 10^3/uL Lymph # (Auto) 0.6 L (1.2-3.8) 10^3/uL [place] # (Auto) 1.2 H (0.3-0.8) 10^3/uL Eos # (Auto) 0.3 (0.0-0.7) 10^3/uL Baso # (Auto) 0.0 (0.0-0.1) 10^3/uL Abs Immat Gran (auto) 0.02 (0.00-0.03) 10^3/uL Imm/Tot Granulo (auto) 0.2 (0.0-0.5) % ESR 55 H (<=20) mm/hr Sodium 137 (136-145) mmol/L Potassium 3.9 (3.5-5.1) mmol/L Chloride 99 (98-107) mmol/L Carbon Dioxide 25.9 (21.0-32.0) mmol/L Anion Gap 16.0 BUN 47.0 H (7.0-18.0) mg/dL Creatinine 2.23 H (0.70-1.30) mg/dL Est GFR ( Amer) 36 L (>=60) Est GFR (Non-Af Amer) 30 L (>=60) BUN/Creatinine Ratio 21.1 Glucose 138 H (74-106) mg/dL Lactate 1.4 (0.4-2.0) mmol/L Calcium 9.1 (8.5-10.1) mg/dL C-Reactive Protein 15.90 H (<=0.50) mg/dL Procalcitonin 0.16 (0.00-0.50) ng/mL Imaging Data Right knee: Radiologist's impression: ITS Impressions Knee X-Ray 06/20/23 10:00 IMPRESSION: There is a stable tpnzw-zgh-hvlg amputation. The hypertrophic bone along the inferior aspect of the tibia is stable. There is no fracture. There is no osseous destruction, osseous erosion or periostitis. There are no definite findings of acute osteomyelitis. There is increased prominence of the soft tissues along the inferior aspect of the amputation which may be secondary to the infectious process described in the clinical information. There is a persistent small gas shadow within the subcutaneous tissues lateral to the fibular head. Electronically authenticated by: SALINA HUFF Date: 06/20/2023 11:00 Discharge Plan Discharge Chief Complaint: Wound/Laceration Clinical Impression: Abscess Patient Disposition: Admitted As Inpatient Time of Disposition Decision: 11:21 Condition: Good
[2023-06-20 10:35] LABS: Basophils Percent Auto 0.3 % (0.2-2.0); Eosinophils Absolute Auto 0.3 10^3/uL (0.0-0.7); Hematocrit 40.4 % (42.0-54.0); Hemoglobin 13.3 g/dL (14.0-18.0); Immature Granulocytes Abs Auto 0.02 10^3/uL (0.00-0.03); Immature Granulocytes Pct Auto 0.2 % (0.0-0.5); Lymphocytes Absolute Auto 0.6 10^3/uL (1.2-3.8); Lymphocytes Percent Auto 6.1 % (20.5-60.0); Mean Corpuscular HGB Conc 32.9 g/dL (29.9-35.2); Mean Corpuscular Hemoglobin 30.9 pg (25.9-34.0); Mean Platelet Volume 11.3 fL (9.5-13.5); Monocytes Absolute Auto 1.2 10^3/uL (0.3-0.8); Monocytes Percent Auto 12.7 % (1.7-12.0); Neutrophils Absolute Auto 7.1 10^3/uL (1.4-6.5); Neutrophils Percent Auto 77.7 % (43.0-75.0); Platelet Count 140 10^3/uL (150-450); Red Cell Distribution Width 14.4 % (11.0-15.0); White Blood Count 9.2 10^3/uL (4.0-11.0)
[2023-06-20 10:47] LABS: BUN Creatinine Ratio 21.1; Calcium 9.1 mg/dL (8.5-10.1); Carbon Dioxide 25.9 mmol/L (21.0-32.0); Chloride 99 mmol/L (98-107); Estimated GFR (African America 36 (>=60); Estimated GFR (Non-African Ame 30 (>=60); Glucose 138 mg/dL (74-106); Potassium 3.9 mmol/L (3.5-5.1); Sodium 137 mmol/L (136-145)
[2023-06-20 10:49] LABS: Erythrocyte Sedimentation Rate 55 mm/hr (<=20)
[2023-06-20 10:59] LABS: Lactate/Lactic Acid 1.4 mmol/L (0.4-2.0)
[2023-06-20 11:13] LABS: PROCALCITONIN 0.16 ng/mL (0.00-0.50)
[2023-06-20] MEDS: PIPERACILLIN SODIUM/TAZOBACTAM 3.375 GM in 0.9 % SODIUM CHLORIDE 50 ML IV ×2 (12:20→20:20)
--- NOTE | 2023-06-20 13:26 | P.HP_ITS ---
<Statement entered by Josh Watt MD - 06/20/23 17:20> Patient not seen or examined and only seen by [employer]. Sent to ER from podiatry with abscess. Started antibiotics and plan OR in am. Resumed home medication and echo ordered. Diagnosis: 1. Abscess 2. ROSALINO 3. DM2 with hyperglycemia 4. HTN 5. COPD 6. Chronic HFrEF 7. CAD 8. CKD 3a HPI H&P: HPI History of Present Illness Chief complaint: R LEG ABSCESS Narrative: 06/20/23 1255 This is a 67-year-old male patient with a complicated past medical history as outlined below including poorly controlled DM2, CAD s/p CT and stent placement in 2014, remote history of left forefoot amputation, right BKA in 2021, among others; who presented to the ED from Dr Hernandez's office after being seen for a diabetic ulcer on his right BKA stump. The patient first noted tender area on his right lateral stump approximately 1 week ago. When the pain became severe he presented to Dr Hernandez's office for evaluation 2 days ago. The wound was lanced at that time and the patient was placed on antibiotics. He had a follow- up visit today and was sent to the ED by Dr Hernandez as he plans to perform a a more complete I&D in the operating room tomorrow morning. Workup in the ED revealed mild ROSALINO on CKD 3A, elevated CRP (15.9) and ESR (55). No leukocytosis or electrolyte abnormalities were identified and a procalcitonin was WNL (0.16). An x-ray of the knee was negative for definitive acute osteomyelitis, but changes consistent with an abscess were noted. Wound and blood cultures were obtained in the ED and the patient was initiated on IVPB vancomycin and Zosyn. He is admitted to the hospitalist service in observation. At the time of my exam the patient is resting comfortably in bed. The periwound area is tender with palpation, but the patient otherwise denies pain. He has significant diabetic neuropathy of the left lower extremity, and some to the right lower extremity as well. He denies chest pain, shortness of breath, N/V/D, or any other acute complaint. He is still on Eliquis for remote history of cardiac stent placement. We will hold Eliquis and aspirin for now pending surgical procedure. We will obtain an echo, CXR, and an EKG for preoperative evaluation. Opioid HPI Opioid Management Most Recent Opioid Data: Last Pain Assessment 04/19/23 13:45 Last ORT Total Score 0 06/20/23 12:54 Last ORT Risk Category Low Risk 06/20/23 12:54 Review of Systems ROS Status of ROS 10 or more systems reviewed and unremark able except as noted in history and below [facility] Medical History (Updated 06/20/23 @ 13:52 by Kalpana Sarkar NP) Below-knee amputation of right lower extremity ?S88.111A - Complete traumatic amputation at level between knee and ankle, right lower leg, initial encounter (ICD-10) Arthritis ?M19.90 - Unspecified osteoarthritis, unspecified site (ICD-10) MRSA (methicillin resistant Staphylococcus aureus) ?A49.02 - Methicillin resistant Staphylococcus aureus infection, unspecified site (ICD-10) Peptic ulcer ?K27.9 - Peptic ulcer, site unspecified, unspecified as acute or chronic, without hemorrhage or perforation (ICD-10) Skin cancer ?C44.90 - Unspecified malignant neoplasm of skin, unspecified (ICD-10) Bronchitis ?J40 - Bronchitis, not specified as acute or chronic (ICD-10) Seizures ?R56.9 - Unspecified convulsions (ICD-10) Myocardial infarction (2015) ?I21.9 - Acute myocardial infarction, unspecified (ICD-10) Osteomyelitis ?M86.9 - Osteomyelitis, unspecified (ICD-10) Chronic ulcer of left ankle ?L97.329 - Non-pressure chronic ulcer of left ankle with unspecified severity (ICD-10) Diabetic neuropathy ?E11.40 - Type 2 diabetes mellitus with diabetic neuropathy, unspecified (ICD-10) Sleep apnea ?G47.30 - Sleep apnea, unspecified (ICD-10) Diabetic retinopathy ?E11.319 - Type 2 diabetes mellitus with unspecified diabetic retinopathy without macular edema (ICD-10) 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 - Other specified disease of esophagus (ICD-10) Chronic kidney disease ?N18.9 - Chronic kidney disease, unspecified (ICD-10) GERD (gastroesophageal reflux disease) ?K21.9 - Gastro-esophageal reflux disease without esophagitis (ICD-10) Hypercalcemia ?E83.52 - Hypercalcemia (ICD-10) Sarcoidosis ?D86.9 - Sarcoidosis, unspecified (ICD-10) COPD (chronic obstructive pulmonary disease) ?J44.9 - Chronic obstructive pulmonary disease, unspecified (ICD-10) Diverticulosis ?K57.90 - Diverticulosis of intestine, part unspecified, without perforation or abscess without bleeding (ICD-10) Colon polyp ?K63.5 - Polyp of colon (ICD-10) Hearing loss ?H91.90 - Unspecified hearing loss, unspecified ear (ICD-10) CAD (coronary artery disease) ?I25.10 - Atherosclerotic heart disease of [place] coronary artery without angina pectoris (ICD-10) Chronic systolic (congestive) heart failure ?I50.22 - Chronic systolic (congestive) heart failure (ICD-10) Diabetes ?E11.9 - Type 2 diabetes mellitus without complications (ICD-10) Hyperlipemia ?E78.5 - Hyperlipidemia, unspecified (ICD-10) Ischemic cardiomyopathy ?I25.5 - Ischemic cardiomyopathy (ICD-10) Apical mural thrombus ?I51.3 - Intracardiac thrombosis, not elsewhere classified (ICD-10) Hypertension ?I10 - Essential (primary) hypertension (ICD-10) Cardiac defibrillator in place ?Z95.810 - Presence of automatic (implantable) cardiac defibrillator (ICD-10) Surgical History (Updated 04/16/23 @ 09:14 by Terese Puga NP) H/O foot surgery ?Z98.890 - Other specified postprocedural states (ICD-10) History of excision of lesion ?Z98.890 - Other specified postprocedural states (ICD-10) ?Z87.2 - Personal history of diseases of the skin and subcutaneous tissue (ICD-10) History of cardiac catheterization ?Z98.890 - Other specified postprocedural states (ICD-10) History of heart artery stent ?Z95.5 - Presence of coronary angioplasty implant and graft (ICD-10) History of cholecystectomy ?Z90.49 - Acquired absence of other specified parts of digestive tract (ICD- 10) History of arthroscopy of knee ?Z98.890 - Other specified postprocedural states (ICD-10) History of foot surgery ?Z98.890 - Other specified postprocedural states (ICD-10) H/O hand surgery ?Z98.890 - Other specified postprocedural states (ICD-10) History of colonoscopy ?Z98.890 - Other specified postprocedural states (ICD-10) History of esophagogastroduodenoscopy (EGD) ?Z98.890 - Other specified postprocedural states (ICD-10) History of ankle surgery ?Z98.890 - Other specified postprocedural states (ICD-10) Family History (Updated 06/20/23 @ 12:47 by Janna Headley) Mother Family history of CHF (congestive heart failure) Family history of diabetes mellitus Family history of hypertension Heart disease Father Family history of hypertension Social History (Updated 06/20/23 @ 12:48 by Janna Headley) Within the past year, how often did you have a drink containing alcohol: monthly or less Within the past year, how many standard drinks containing alcohol did you have on a typical day: 1 or 2 Within the past year, how often did you have six or more drinks on one occasion: never Total score: 0 Score interpretation: A score less than 4 is consistent with normal alcohol consumption. Smoking status: Never smoker Non-prescribed substance use: denies use Previous occupational history: retired Highest level of school completed/degree received: high school graduate Are you now , , , , never or living with a partner: In a typical week, how many times do you talk on the telephone with family, friends, or neighbors: 3 or more times per week How often do you get together with friends or relatives: 3 or more times per week How often do you attend gnosticist or rastafarian services: 4 or more times per year Do you belong to any clubs or organizations such as gnosticist groups unions, fraternal or athletic groups, or school groups: no Total score: 3 Score interpretation: A score of greater than or equal to 2 indicates the lowest level of social isolation. Little interest or pleasure in doing things: not at all Feeling down, depressed, or hopeless: not at all Feel stressed/tense/nervous/anxious/difficulty sleeping: not at all Do you think of yourself as: straight/heterosexual Gender Identity: male Meds Home Medications and Allergies Home Medications ?Medication ?Instructions ?Recorded ?Confirmed ?Type albuterol sulfate 90 mcg/actuation 2 inh inhalation Q6H PRN shortness 04/16/23 06/20/23 History aerosol inhaler (ProAir HFA) of breath or wheezing allopurinol 100 mg tablet 200 mg PO DAILY 04/16/23 06/20/23 History apixaban 5 mg tablet (Eliquis) 5 mg PO BID 04/16/23 06/20/23 History ascorbic acid (vitamin C) 500 mg 500 mg PO DAILY 04/16/23 06/20/23 History capsule aspirin 81 mg tablet,delayed 81 mg PO DAILY 04/16/23 06/20/23 History release (Adult Aspirin Regimen) atorvastatin 80 mg tablet 80 mg PO DAILY 04/16/23 06/20/23 History bumetanide 2 mg tablet 1 mg PO BID 04/16/23 06/20/23 History carvedilol 6.25 mg tablet 6.25 mg PO BID 04/16/23 06/20/23 History cholecalciferol (vitamin D3) 125 5,000 unit PO DAILY 04/16/23 06/20/23 History mcg (5,000 unit) capsule coQ10 (ubiquinol) 100 mg capsule 100 mg PO DAILY 04/16/23 06/20/23 History (Qunol Cory CoQ10) dapagliflozin propanediol 10 mg 10 mg PO DAILY 04/16/23 06/20/23 History tablet (Farxiga) fluticasone furoate 200 1 inh inhalation DAILY PRN 04/16/23 06/20/23 History mcg-vilanterol 25 mcg/dose increased sob inhalation powder (Breo Ellipta) losartan 25 mg tablet (Cozaar) 25 mg PO DAILY 04/16/23 06/20/23 History magnesium oxide 400 mg PO DAILY 04/16/23 06/20/23 History multivitamin (Daily Multi-Vitamin 1 tab PO DAILY 04/16/23 06/20/23 History tablet) nitroglycerin 0.4 mg sublingual 0.4 mg sublingual Q5M 04/16/23 06/20/23 History tablet (Nitrostat) prednisone 5 mg tablet 5 mg PO .COMPLEX 04/16/23 06/20/23 History spironolactone 25 mg tablet 25 mg PO DAILY 04/16/23 06/20/23 History ondansetron 4 mg disintegrating 4 mg PO Q8H PRN nausea and 04/19/23 06/20/23 Rx tablet vomiting 5 days #15 tabs oxycodone-acetaminophen 5 mg-325 1 tab PO Q8H PRN pain 7 days #21 04/19/23 06/20/23 Rx mg tablet (Percocet) tabs duloxetine 30 mg capsule,delayed 30 mg PO DAILY 06/20/23 06/20/23 History release insulin glargine 100 unit/mL subcut .qhs 06/20/23 History subcutaneous solution (Lantus U-100 Insulin) insulin lispro 100 unit/mL subcut TID 06/20/23 History subcutaneous half-unit pen Allergies Allergy/AdvReac Type Severity Reaction Status Date / Time chlorpheniramine Allergy Hives Verified 06/20/23 12:02 dextromethorphan Allergy Hives Verified 06/20/23 12:02 doxycycline Allergy Verified 06/20/23 12:02 hydrocodone [From Tussionex] Allergy Hives Verified 06/20/23 12:02 levofloxacin Allergy Chest Pain Verified 06/20/23 12:02 Exam Constitutional Vital Signs, click to edit/add: Last Vital Signs Temp 97.9 F 06/20/23 12:54 Pulse 73 06/20/23 12:54 Resp 16 06/20/23 12:54 BP 131/74 06/20/23 12:54 Pulse Ox 96 06/20/23 12:54 O2 Del Method Room Air 06/20/23 12:54 Common normals: no apparent distress, oriented x3, alert and well nourished General appearance: cooperative Orientation/consciousness: Yes awake HENMT Common normals: normocephalic, head/scalp atraumatic, external nose normal and moist oral mucous membranes Eye Common normals: PERRL, EOMs intact bilaterally, conjunctivae normal and no scleral icterus Alignment: alignment normal Eyelid: eyelids normal Neck & C-Spine Common normals: full ROM, supple and no JVD Chest Common normals: inspection of chest normal Chest: symmetrical chest wall rise Respiratory Common normals: normal respiratory effort, no retractions, no use of accessory muscles and clear to auscultation bilaterally Effort & inspection: able to speak in complete sentences Cardio Common normals: no JVD, regular rate, regular rhythm, S1 normal heart sound, S2 normal heart sound, no gallops, no clicks, no rub and peripheral pulses 2+ throughout GI Common normals: Normal to inspection, nondistended, normoactive bowel sounds present, soft to palpation, non-tender, no hepatosplenomegaly, no masses and no bruits Bladder/kidney exam: bladder normal to palpation Extremity Common normals: normal capillary refill and no pedal edema General: normal exam except as noted; no clubbing and no cyanosis Right lower extremity: lower leg (BKA stump wound-purulent drainage) Left lower extremity: ankle joint (Well healed prior ulceration) and foot and digits (s/p forefoot amp) Neuro [place] Coma Scale: GCS not evaluated Common normals: CN's II-XII intact bilaterally, moves all extremities and no focal motor deficits Speech: speech normal Motor exam: strength 5/5 throughout Psych Common normals: mental status grossly normal, thought process normal, affect normal and activity/motor behavior normal Results Labs Labs: Short CBC 06/20/23 Range/Units 10:05 WBC 9.2 (4.0-11.0) 10^3/uL Hgb 13.3 L (14.0-18.0) g/dL Hct 40.4 L (42.0-54.0) % Plt Count 140 L (150-450) 10^3/uL BMP 06/20/23 10:05 Sodium 137 Potassium 3.9 Chloride 99 Carbon Dioxide 25.9 BUN 47.0 H Creatinine 2.23 H Glucose 138 H Calcium 9.1 Pulse Oximetry Attestation: I have reviewed the pertinent pulse oximetry results. Imaging R Knee XR: Attestation: I have reviewed the pertinent imaging results. Radiologist's impression: IMPRESSION: There is a stable [id number] amputation. The hypertrophic bone along the inferior aspect of the tibia is stable. There is no fracture. There is no osseous destruction, osseous erosion or periostitis. There are no definite findings of acute osteomyelitis. There is increased prominence of the soft tissues along the inferior aspect of the amputation which may be secondary to the infectious process described in the clinical information. There is a persistent small gas shadow within the subcutaneous tissues lateral to the fibular head. Assessment and Plan Assessment and Plan (1) Abscess: Assessment and Plan: Acute * Adm observation * Consult podiatry - we appreciate Dr Garcia assistance with this pt's care * I&D in the OR planned for tomorrow * NPO at midnight * Hold home Eliquis & ASA pending surgical intervention * CXR, EKG, 2D Echo for preop evaluation * IVPB Zosyn and Vanco w/ pharmacy to dose * Afebrile, stable BP and mentation, no leukocytosis * Low clinical suspicion for sepsis * Wound cultures obtained in the ED - pending * Blood cultures x 2 obtained in the ED - pending * CBC, CMP daily. ESR, CRP in AM (2) Acute kidney injury superimposed on CKD: Assessment and Plan: Acute * Suspect baseline CKD3a per previous lab results in April * BUN 45, Cr 1.76, GFR 39 * Current ROSALINO w/ Cr 2.23, GFR 30 * Hold home renal toxic meds including bumex, spironolactone, farxiga, and losartan for now * Gentle IVF (in setting of Systolic HF) at 75 ml/hr * CMP in AM to monitor (3) Diabetes: Assessment and Plan: Chronic * Continue home lantus 40 un at [facility] pharmacy substitution per formulary * ACHS glucometer checks * Med SSI glucose correction - low threshold to increase to high dose pending clinical course * Med CC diet * A1C in AM (4) Below-knee amputation of right lower extremity: Assessment and Plan: Chronic * BKA in 2021 * See abscess above * Pt is ambulatory w/ prosthesis or with knee scooter (5) Diabetic neuropathy: Assessment and Plan: Chronic * Stable at baseline * Not on gabapentin at home (6) COPD (chronic obstructive pulmonary disease): Assessment and Plan: Chronic * Continue home PRN Albuterol HFA and q48hr prednisone * Low threshold to add steroid stress dosing in a steroid dependent pt pending clinical course (7) CAD (coronary artery disease): Assessment and Plan: Chronic * s/p CT 2014 w/ stent placement * Pt has been on Eliquis since stents were placed * Hold eliquis & ASA for now pending surgical intervention * Hold home ARB d/t ROSALINO * Continue home statin and BB (8) Chronic systolic (congestive) heart failure: Assessment and Plan: Chronic * Hold home Bumex for now d/t ROSALINO * Resume when clinically indicated * Pt appears euvolemic at time of admission * 2D Echo for preop eval now * Gentle IVF d/t ROSALINO and NPO status at midnight * Daily weights, strict I&O (9) Hypertension: Assessment and Plan: Chronic * Hold home losartan d/t ROSALINO * Continue home Coreg * Consider holding if hypotension develops in a steroid dependent pt * PRN IV Hydralazine for uncontrolled HTN
--- NOTE | 2023-06-20 13:50 | ECG_ITS ---
The [facility] Test Date: 2023-06-20 Pat Name: ANAI PELAYO Department: Room: [facility] Gender: Male Assessment Specialist: : 1955 Requested By: DEON BRAXTON Order Number: [id number] Reading MD: ARACELI MULLINS Measurements Intervals [place] Rate: 74 P: 46 WV: 160 QRS: -68 QRSD: 149 T: 65 QT: 438 QTc: 487 Interpretive Statements SINUS RHYTHM RIGHT BUNDLE BRANCH BLOCK LEFT ANTERIOR FASCICULAR BLOCK POSSIBLE ANTERIOR MYOCARDIAL INFARCTION OF INDETERMINATE AGE Chronic, nonspecific ST/T wave changes when compared to tracing from 07/02/20 Electronically Signed On 06-21-2023 6:50:14 EDT by ARACELI MULLINS
--- NOTE | 2023-06-20 13:50 | XR_ITS ---
The [address] [address] Patient Name: ANAI PELAYO MRN: [id number] date: 1955 Sex: M Assigned Patient Location: MS Current Patient Location: Accession/Order Number: [id number] Exam Date: 06/20/2023 14:11 Report Date: 06/20/2023 14:43 At the request of: NENITA CHICAS Procedure: XR chest 1V EXAM: XR chest 1V at 1330 hours HISTORY: preop eval COMPARISON: 04/16/2023 TECHNIQUE: AP upright portable chest x-ray FINDINGS: The heart is mildly enlarged with some prominence of the central pulmonary vasculature. No acute infiltrate, effusion or pneumothorax is identified. The left-sided pacemaker remains in place. The osseous structures are grossly intact. XR/XR chest 1V IMPRESSION: Cardiac enlargement without evidence of overt cardiac decompensation. A focal infiltrate is not identified. The overall appearance of the chest is unchanged. Electronically authenticated by: SALINA PATTEN Date: 06/20/2023 14:43
--- NOTE | 2023-06-20 13:50 | CA_ITS ---
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 DESCRIPTION: COMPLETE ECHOCARDIOGRAM Real-time transthoracic echocardiography with 2D, M-mode, spectral and color flow Doppler performed. QUALITY: Technical quality was good. 73 , 200#, BP 131/74 LEFT VENTRICLE: Mild dilatation. Proximal septal hypertrophy (sigmoid septum). LV EF: Global left ventricular systolic function is moderately reduced; visually estimated ejection fraction is 30 to 35%. Unable to assess regional wall motion abnormalities. DIASTOLIC: Grade II diastolic dysfunction. ATRIAL SEPTUM: Visually appears intact. LEFT ATRIUM: Moderate dilatation. RIGHT ATRIUM: Mild dilatation. RIGHT VENTRICLE: Normal chamber size. Normal systolic function. Pacer wire present. TRICUSPID VALVE: Normal mobility and thickness. No stenosis with mild regurgitation. Doppler studies reveal mildly (35-45) elevated right sided pressures. RVSP 45 mmHg MITRAL VALVE: Normal mobility and thickness. No evidence of mitral valve stenosis. There is no mitral annular calcification. Trivial mitral regurgitation. AORTIC VALVE: Normal trileaflet appearance. No visible sclerosis. Normal leaflet mobility. No evidence of aortic valve stenosis. No aortic regurgitation. AORTIC ROOT: Normal diameter and appearance. PULMONIC VALVE: Normal thickness and mobility. No stenosis. No regurgitation. PERICARDIUM: No evidence of pericardial effusion. IVC: IVC is dilated (2.5 cm) with no collapse. CONCLUSION: 1. Global left ventricular systolic function is moderately reduced; visually estimated ejection fraction is 30 to 35% 2. Normal right ventricular size and systolic function 3. Biatrial enlargement 4. Grade 2 diastolic dysfunction 5. Mild tricuspid regurgitation 6. Mildly elevated right ventricular systolic pressure; RVSP 45 mmHg 7. Valves are poorly seen; no significant valvular abnormalities Adult Echocardiography Procedure Report Left Ventricle LVEDD (3.7 - 5.6 cm): 6.18 cm LVESD (2.2 - 4.0 cm): 5.22 cm LVIVS thickness (0.6 - 1.2 cm): 1.24 cm LVPW thickness (0.5 - 1.0 cm): 0.84 cm e': 0.08 m/s E - e': 8.14 LVOT Max Gradient: 3.13 mm[Hg] LVOT Area (cm2): 0.88 m/s Peak Velocity (LVOT): 0.88 m/s Mean Velocity (LVOT): 0.60 m/s LVOT Diameter 2.72 cm Left Atrium Left Atrium Systolic Dimension: 3.29 cm Mitral Valve MV E to A Ratio: 0.68 Mitral Valve A-Wave Peak Velocity: 0.95 m/s Mitral Valve E-Wave Peak Velocity: 0.65 m/s Right Ventricle Aorta AO Root Diam: 4.12 cm Aortic Valve AoV Area (Peak Stas): 4.52 cm2, 4.52 cm2 AoV Area (VTI): 4.48 cm2, 4.48 cm2 Peak Velocity(Antegrade Flow): 1.14 m/s Peak Gradient(Antegrade Flow): 5.21 mm[Hg] Mean Velocity(Antegrade Flow): 0.81 m/s Mean Gradient(Antegrade Flow): 2.90 mm[Hg] Velocity Time Integral: 22.81 cm Tricuspid Valve Peak Velocity (Regurgitant Flow): 2.72 m/s, 2.41 m/s Pulmonic Valve Peak Velocity: 0.92 m/s Peak Gradient: 4.60 mm[Hg], 2.35 mm[Hg] Right Atrium Dictated by: Reshma Rojas M.D. on 06/21/2023 at 10:06 Approved by: Reshma Rojas M.D. on 06/21/2023 at 10:09
--- NOTE | 2023-06-20 14:30 | SWNOTE1 ---
Medicare Outpatient Observation Notice reviewed and discussed with patient. Pt. verbalized understanding and signed the form. Original given to patient and copy placed in patient?s chart. Pt lives at home with hi , she was not in room at the time. Pt does have a knee scooter in the room. SW did notice during conversation, pt is a little hard of hearing. Pt voiced no dc needs at this time. Plan is for I&D tomorrow on his left leg, he does have BKA on left leg. SW to check back tomorrow for needs after I&D.
[2023-06-20] MEDS: VANCOMYCIN HCL 1,500 MG in 0.9 % SODIUM CHLORIDE 500 ML 250 MG IV (14:46)
[2023-06-20] MEDS: PREDNISONE 5 MG TABLET PO (14:47)
[2023-06-20] MEDS: 0.9 % SODIUM CHLORIDE 1,000 ML 75 ML IV (14:47)
[2023-06-20] MEDS: OXYCODONE HCL 5 MG TABLET 10 MG PO (14:47)
--- NOTE | 2023-06-20 15:54 | PC.NURSE ---
The wound surrounding discolorazation is 4 cm wide and 5 cm long. The open area is 1cm long and 0.5cm wide.
[2023-06-20 16:13] LABS: Glucometer 244 mg/dL (74-106)
--- NOTE | 2023-06-20 16:16 | DIETREC ---
Recommend 2000 kcal CCD diet and 30 mL PRO-stat BID.
[2023-06-20] MEDS: INSULIN ASPART 300 UNIT/3 ML PEN SUBQ ×2 (16:22→21:23)
[2023-06-20 16:42] LABS: Troponin I High Sensitivity 29.2 pg/mL (4.0-76.1)
[2023-06-20] MEDS: CARVEDILOL 6.25 MG TABLET PO (20:19)
[2023-06-20] MEDS: PROSTAT 15 GM PROTEIN/100 CAL 30 ML LIQUID PACKET PO (20:19)
[2023-06-20] MEDS: ATORVASTATIN CALCIUM 40 MG TABLET 80 MG PO (20:19)
[2023-06-20 20:23] LABS: Glucometer 210 mg/dL (74-106)
[2023-06-20] MEDS: INSULIN DETEMIR 300 UNIT/3 ML INSULN.PEN 40 UNIT SUBQ (21:24)
[2023-06-21] VITALS (18 sets, daily range): BP systolic 120–149; BP diastolic 61–79; PULSE 61–69; RESP 13–24; TEMP 36–36.9; O2SAT 94–98
[2023-06-21] MEDS: PIPERACILLIN SODIUM/TAZOBACTAM 3.375 GM in 0.9 % SODIUM CHLORIDE 50 ML IV (03:59)
[2023-06-21] MEDS: 0.9 % SODIUM CHLORIDE 1,000 ML 75 ML IV (03:59)
[2023-06-21 04:59] LABS: Basophils Percent Auto 0.2 % (0.2-2.0); Eosinophils Absolute Auto 0.2 10^3/uL (0.0-0.7); Hematocrit 38.2 % (42.0-54.0); Hemoglobin 12.3 g/dL (14.0-18.0); Immature Granulocytes Abs Auto 0.03 10^3/uL (0.00-0.03); Immature Granulocytes Pct Auto 0.4 % (0.0-0.5); Lymphocytes Absolute Auto 0.6 10^3/uL (1.2-3.8); Lymphocytes Percent Auto 7.3 % (20.5-60.0); Mean Corpuscular HGB Conc 32.2 g/dL (29.9-35.2); Mean Corpuscular Hemoglobin 30.1 pg (25.9-34.0); Mean Corpuscular Volume 93.6 fL (80.0-94.0); Mean Platelet Volume 10.9 fL (9.5-13.5); Monocytes Absolute Auto 0.9 10^3/uL (0.3-0.8); Monocytes Percent Auto 11.2 % (1.7-12.0); Neutrophils Absolute Auto 6.3 10^3/uL (1.4-6.5); Neutrophils Percent Auto 77.9 % (43.0-75.0); Platelet Count 148 10^3/uL (150-450); Red Blood Count 4.08 10^6/uL (4.70-6.10); White Blood Count 8.1 10^3/uL (4.0-11.0)
[2023-06-21 05:09] LABS: Estimated Average Glucose 103 mg/dL; Glycohemoglobin A1C 5.2 % (4.5-6.2)
[2023-06-21 05:11] LABS: C Reactive Protein 10.84 mg/dL (<=0.50)
[2023-06-21 05:12] LABS: Alanine Aminotransferase 28 U/L (16-63); Albumin Globulin Ratio 0.8; Albumin Level 2.8 g/dL (3.4-5.0); Alkaline Phosphatase 70 U/L (46-116); Anion Gap 14.6; Aspartate Amino Transferase 25 U/L (15-37); BUN Creatinine Ratio 19.6; Bilirubin Total 0.7 mg/dL (0.2-1.0); Calcium 8.7 mg/dL (8.5-10.1); Carbon Dioxide 24.5 mmol/L (21.0-32.0); Chloride 104 mmol/L (98-107); Estimated GFR (African America 50 (>=60); Estimated GFR (Non-African Ame 41 (>=60); Globulin 3.7 g/dL; Glucose 143 mg/dL (74-106); Potassium 4.1 mmol/L (3.5-5.1); Sodium 139 mmol/L (136-145); Total Protein 6.5 g/dL (6.4-8.2)
[2023-06-21 07:22] LABS: Glucometer 129 mg/dL (74-106)
[2023-06-21 07:23] LABS: Erythrocyte Sedimentation Rate 52 mm/hr (<=20)
[2023-06-21] MEDS: MAGNESIUM OXIDE 400 MG TABLET PO (09:13)
[2023-06-21] MEDS: ALLOPURINOL 100 MG TABLET 200 MG PO (09:13)
[2023-06-21] MEDS: CARVEDILOL 6.25 MG TABLET PO ×2 (09:13→21:54)
--- OUTSIDE RECORDS SUMMARY | 2023-06-21 09:13 | XMS_ITS | CCD ---
Author Organization [facility] Care Team Providers Care Lock Technician Name Role Phone DEON BRAXTON Primary Care Unavailable Chirag Gutierrez DO Attending Un available SHINHASDEON Consulting Unavailable YUHAS, DEON SRINIVAS Primary Care Unavailable McGinChirag maloney DO Attending Un available YUHAS, DEON ESPINO Consulting Unavailable YUHAS, DEON SRINIVAS Primary Care Unavailable McGChirag donald DO Attending Un available YUHAS, DEON SRIINVAS Primary Care Unavailable Chirag Gutierrez DO Attending Un available Pako Aguilar Unavailable Reddy Brandt Unavailable DO Deon Braxton Primary Care Provider [phone] DO Reddy Brandt Attending Provider [phone] DO Reddy Brandt Referring Provider CRISTINA Bailey Attending Provider DO Reddy Brnadt Admit Provider [phone] NBA Hope Other Provider Unavailable NBA Ruiz Other Provider Unavailable NBA Sorensen Other Provider Unavailable NBA Jasso Other Provider Unavailable NBA Frederick Other Provider Unavailable Agata RN Jana Other Provider Unavailable MD Fredi Mendez Other Provider KRUNAL Galvin Other Provider [phone] DO Julia Segura Other Provider MD [...] Other Provider MD Sonido Murillo Other Provider Reba SALES CORRESPONDENT-C Mai Vega Other Provider MD Christiano Evans Other Provider MD Isidro Antunez Other Provider MD Rosalind Coburn Other Provider MD Bill Osei Other Provider DO Lizbeth Mcbride Other Provider Al MD Fabio Fernandez Other Provider DO Kwesi Muhammad Other Provider KRUNAL Patel Other Provider DO Bin Carrera Other Provider [phone] MD Patti Taylor Other Provider NBA Munoz Other Provider Unavailable BALJEET LEONG Admitting UnavailBALJEET Moss Attending UnavailDR DEON Au Primary Care Unavailable DR DEON BRAXTON Primary Care Unavailable SALINA LEE Consulting Unavailable SALINA LEE Attending Unavailable SALINA LEE Admitting Unavailable ENMANUEL MCKAY Consulting Unavailable ENMANUEL MCKAY Attending Unavailable ENMANUEL MCKAY Admitting Unavailable DR DEON BRAXTON Primary Care Unavailable BALJEET LEONG Consulting Unavailabl e CLOUGHERTYBALJEET Attending Unavailabl e CLOUGHERTYBALJEET Admitting Unavailabl e YUMARVAS, DR CHAVARRIA Primary Care Unavailable IRAIS, DR CHAVARRIA Primary Care Unavailable LEON, DR CLEMENTS Consulting Unavailable BLANK, DR CLEMENTS Attending Unavailable BLANK, DR CLEMENTS Admitting Unavailable CLOMARIELA, BALJEET O Attending Unavailabl e CLOUNAERTYBALJEET Admitting [...] LEONG Admitting Unavailabl e CLOUNAERTYBALJEET Attending Unavailabl hilario SHERIFF, DR ANAI Edmond Consulting Unavailable IRAIS, DR CHAVARRIA Primary Care Unavailable BALJEET LEONG Consulting Unavailabl e YUMARVAS, DR CHAVARRIA Primary Care Unavailable JESUS, SALINA Walker Attending Unavailable JAZIEL, DR ANAI Edmond Consulting Unavailable SALINA LEE Admitting Unavailable SALINA LEE Consulting Unavailable BALJEET LEONG Attending Unavailabl e CLOUNAERTYBALJEET O Admitting Unavailabl e WEST, DR ANAI Edmond Consulting Unavailable IRAIS, DR CHAVARRIA Primary Care Unavailable BALJEET LEONG O Consulting Unavailabl e CLOUGHERTYBALJEET O Admitting Unavailabl e CLOUGHERTYBALJEET O Consulting Unavailabl e CLOUGHERTYBALJEET O Attending Unavailabl e YUDONNA, DR CHAVARRIA Primary Care Unavailable CLOBALJEET SIERRA Attending Unavailabl e CLOUNAERTYBALJEET O Admitting Unavailabl e YUHAS, DR CHAVARRIA Primary Care Unavailable CLOBALJEET SIERRA O Attending Unavailabl e YUHAS, DR CHAVARRIA Primary Care Unavailable CLOBALJEET SIERRA O Admitting Unavailabl e YUHAS, DR CHAVARRIA Primary Care Unavailable SALINA LEE Attending Unavailable SALINA LEE Admitting Unavailable YUDONNA, DR CHAVARRIA Primary Care Unavailable SALINA LEE Attending Unavailable HIGHLARIS, PETER D Admitting Unavailable CLOUGHERTY, BALJEET Payan Attending Unavailabl e CLOUNAERTYBALJEET Admitting Unavailabl e YUDONNA, DR CHAVARRIA Primary Care Unavailable CLOUGHERTY, BALJEET O Admitting Unavailabl e CLOUGHERTY, BALJEET O Attending Unavailabl e YUMARVAS, DR CHAVARRIA Primary Care Unavailable CLOUGHERTY, DELONG O Admitting Unavailabl e CLOUGHERTY, BALJEET O Attending Unavailabl e IRAIS, DR CHAVARRIA Primary Care Unavailable IRAIS, DR CHAVARRIA Primary Care Unavailable [facility] SALINA Walker Attending Unavailable HIGHLARIS, SALINA Walker Admitting Unavailable HIGHLARIS, SALINA Walker Attending Unavailable SANDUSKY, DR ANAI Edmond Consulting Unavailable HIGHLSALINA HURST Admitting Unavailable YUHAS, DR CHAVARRIA Primary Care Unavailable HIGHLANDERSALINA Consulting Unavailable JESUS, SALINA Walker Attending Unavailable HIGHLARIS, SALINA Walker Admitting Unavailable YUHAS, DR CHAVARRIA Primary Care Unavailable ZIAVI, DR ARLEN Patel Consulting Unavailable HIGHLSALINA HURST Consulting Unavailable HIGHLARIS, SALINA Walker Attending Unavailable SALINA LEE Admitting Unavailable YUHAS, DR CHAVARRIA Primary Care Unavailable HIGHLSALINA HURST Attending Unavailable HIGHLSALINA HURST Admitting Unavailable YUHAS, DR CHAVARRIA Primary Care Unavailable [facility], SALINA Walker Attending Unavailable YUDONNA, DR CHAVARRIA Primary Care Unavailable HIGHLARIS, SALINA Walker Admitting Unavailable HIGHLARIS, SALINA Walker Attending Unavailable YUHAS, DR CHAVARRIA Primary Care Unavailable [facility] Consulting Unavailable [facility] HURST Admitting Unavailable CLOUGHERTY, BALJEET O Attending Unavailabl e CLOUNAERTYBALJEET Admitting Unavailabl e IRAIS, DR CHAVARRIA Primary Care Unavailable CLOUNAERTY, BALJEET Payan Admitting Unavailabl e CLOUGHERTY, BALJEET O Attending Unavailabl e IRAIS, DR CHAVARRIA Primary Care Unavailable CLOUGHERTY, BALJEET O Admitting Unavailabl e CLOUGHERTY, BALJEET O Attending Unavailabl e IRAIS, DR CHAVARRIA Primary Care Unavailable IRAIS, DR CHAVARRIA Primary Care Unavailable SALINA LEE Attending Unavailable SALINA LEE Admitting Unavailable CLOUGHERTY, DELONG O Admitting Unavailabl e CLOUGHERTY, DELONG O Attending Unavailabl e IRAIS, DR CHAVARRIA Primary Care Unavailable CLOUGHERTY, DELONG O Admitting Unavailabl e SALO, BALJEET O Attending Unavailabl hilario SHERIFF, DR ANAI Edmond Consulting Unavailable IRAIS, DR CHAVARRIA Primary Care Unavailable CLOUGHERTYBALJEET Consulting Unavailabl e HIGHLANDER, SALINA Walker Attending [...] YUHAS, DR CHAVARRIA Primary Care Unavailable CLOUGHERTY, DELONG O Attending Unavailabl e CLOUGHERTY, BALJEET O [...] BRADLEY Consulting Unavailable KLYM, CHARLES Consulting Unavailable FAWWAD, DIAZ H Attending Unavailable FAWWAD, DIAZ H Admitting Unavailable YUHAS, DR CHAVARRIA Primary Care Unavailable BAUTISTA, DR ALBER Rich Consulting Unavailable WEST, DR ANAI Edmond Consulting Unavailable ZIEBER, DR ARLEN Patel Consulting Unavailable SALOME, SANTSO Consulting Unavailable HIGHLARIS, SALINA Walker Consulting Unavailable AGUBOSIM, MICHELA Consulting Unavailable BIANCA, JORDI Consulting Unavailable SUZANNE, SHERINE Consulting Unavailable FAWSHENA, DIAZ H Consulting Unavailable JESUS, SALINA Walker Procedure Practitioner Unava ilable MARIA E BRASWELL Consulting Unavailable WOODY, AMAR Consulting Unavailable YUHARitesh, DR CHAVARRIA Primary Care Unavailable JESUS, SALINA Walker Attending Unavailable JESUS, SALINA Walker Consulting Unavailable SALINA LEE Admitting Unavailable HIGHLARIS, SALINA Walker Attending Unavailable WEST, DR AANI Edmond Consulting Unavailable YUHAS, DR CHAVARRIA Primary Care Unavailable SALINA LEE Admitting Unavailable SALINA LEE Consulting Unavailable BALJEET LEONG O Attending Unavailabl e CLOUGHERTY, BALJEET O Admitting Unavailabl e YUHAS, DR CHAVARRIA Primary Care Unavailable SALO, BALJEET O Attending Unavailabl e CLOUGHERTY, BALJEET O Admitting Unavailabl e YUHAS, DR CHAVARRIA Primary Care Unavailable CLOMARIELA, BALJEET O Attending Unavailabl e CLOUGHERTY, BALJEET O Admitting Unavailabl e YUHAS, DR CHAVARRIA Primary Care Unavailable MD Ghanshyam Kaye Admit Provider MD Ghanshyam Kaye Attending Provider [phone] MD Bronwyn Alegre Other Provider ROHIT Palacios Emergency Provider [phone] DO César Cortes Emergency Provider Yumarvas, DO Deon Primary Care Provider DO Reddy Brandt Attending Provider Yuhas, DO Deon Primary Care Provider DO Reddy Brandt Attending Provider DO César Cortes Emergency Provider DO Reddy Brandt Admit Provider [phone] Ghanshyam Kaye Unavailable Yuhas, DO Deon Primary Care Provider DO Reddy Brandt Attending Provider Dung Serna Unavailable YOVANNY CALHOUN Attending Unavailable YOVANNY CALHOUN Referring Unavailable YOVANNY CALHOUN Attending Unavailable YOVANNY CALHOUN Referring Unavailable DEON BRAXTON Primary Care Unavailable Deon Braxton DO Primary Care Provider TERRY LOCK Attending Unavailable DEON BRAXTON Referring Unavailable DEON BRAXTON Primary Care Unavailable DO Deon Braxton Primary Care Provider ERIKA Lee Attending Provider [phone] Dung Serna Admitting Unavailable Dung Serna Attending Unavailable Deon Braxton Primary Care Unavailable Salina Lee Attending Unavailable Deon Braxton Primary Care Unavailable Salina Lee Admitting Unavailable Allergies Allergy Classification Reported Allergen(s) Allergy Type Date of Onset Reaction(s) Facility (20 sources) Chlorpheniramine; Translations: [chlorpheniramine] Drug Allergy 07-02-19 21 [facility] Repository (15 sources) Dextromethorphan; Translations: [dextromethorphan] Drug Allergy 10-19-19 22 Unknown Reaction [facility] Repository (20 sources) Doxycycline; Translations: [doxycycline] Drug Allergy 04-02-19 21 FELT LIKE A HEART ATTACK, Chest Pain [facility] Repository (20 sources) guaiFENesin; Translations: [guaiFENesin] Drug Allergy 04-14-19 16 [facility] Repository (20 sources) levoFLOXacin; Translations: [levoFLOXacin] Drug Allergy 04-02-19 21 Chest Pain [facility] Repository (20 sources) Phenylephrine; Translations: [phenylephrine] Drug Allergy 07-02-19 21 Unknown Reaction [facility] Repository (1 source) Tussionex [employer]; Translations: [Tussionex [employer]] Propensity to adverse reactions to drug (disorder) [facility] Repository (20 sources) Tussin Drug allergy [facility] [employer] Other (20 sources) HYDROcodone; Translations: [HYDROCODONE] Drug Allergy 10-19-19 22 [facility] (4 sources) Chlorpheniramine / HYDROcodone; Translations: [TUSSIONEX] Drug Allergy [facility] Repository (9 sources) Dextromethorphan; Translations: [DEXTROMETHORPHAN HBR] Drug Allergy 10-18-19 23 Itching [facility] Repository (9 sources) [id number] INOPHEN; Translations: [[id number]-[id number] MINOPHEN] Propensity to adverse reactions to drug (disorder) 02-04-20 [facility] Repository (7 sources) Chlorpheniramine / HYDROcodone Drug Allergy Itching [facility] (1 source) carbetapentane Drug Allergy 12-06-19 23 [facility] Repository Medications Current Medications Medication Drug Class(es) Dates Sig (Normalized) Sig (Original) acetaminophen 500 mg oral tablet (14 sources) Start: 10-27-2021 take 500 mg by mouth every four hours Acetaminophen Active 500 MG PO Q4H 100 October 26, 2021 11:00pm take 1 capsule by mouth every si x hours Acetaminophen 500 MG 1 capsule as needed Orally every 6 hrs Active [id number] 200 actuat albuterol 0.09 mg/actuat metered dose [...] / ipratropium bromide 0.167 mg/ml inhalation solution (7 sources) Anticholinergic, beta2-Adrenergic Agonist Start: 11-09-2022 ipratropium-albuteroL (DUONEB) 0.5 mg-3 mg(2.5 mg base)/3 mL nebulizer Indications: COPD with acute exacerbation ([facility]) USE 3 ML VIA NEBULIZER FOUR [...] (20 sources) HMG-CoA Reductase Inhibitor Start: 09-12-2022 End: 05-13-2023 take 1 tablet by mouth in the morning atorvastatin (LIPITOR) 80 mg tablet Indications: Pure hypercholesterolemia TAKE 1 TABLET(80 MG) BY MOUTH IN THE MORNING 90 tablet 1 05/13/2023 Active Start: 10-14-2021 End: 10-27-2021 take 1 tablet by mouth in the morning atorvastatin (LIPITOR) 80 mg tablet Indications: hyperlipidemia Take 1 tablet (80 mg total) by mouth in the morning. Indications: excessive fat in the blood. 90 tablet 1 09/12/2022 Active benzonatate 200 mg oral capsule (7 sources) Non-narcotic Antitussive Start: 11-03-2022 take 1 [...] 2021 12:00am collagenase 0.25 unt/mg topical ointment (7 sources) Collagen-specific Enzyme Start: 03-22-2023 End: 06-20-2023 collagenase (SantyL) ointment Apply 1 Application topically in the morning. 0 03/22/2023 06/20/2023 Active dapagliflozin 10 mg oral tablet (11 sources) Sodium-Glucose Cotransporter 2 Inhibitor Start: 10-26-2022 take 1 tablet by mouth in the morning dapagliflozin propanediol (FARXIGA) 10 mg tablet Indications: Chronic systolic congestive heart failure (CMS-HCC) Take 1 tablet (10 mg total) by mouth in the morning. 90 tablet 1 10/26/2022 Active take 5 mg by mouth once daily FA RXIGA 5mg As directed P.O. Daily Active flash glucose sensor (FREESTYLE LLEO 2 SENSOR) kit (7 sources) Start: 02-18-2023 flash glucose sensor (FREESTYLE LELO 2 SENSOR) kit Indications: Type 2 diabetes mellitus with diabetic neuropathic arthropathy, with long-term current use of insulin ([facility] CHANGE EVERY 2 WEEKS DIRECTED 6 kit [...] diabetes mellitus. 60 mL 0 04/13/2023 Active 0.5 unt doses 3 ml insulin lispro 100 unt/ml pen injector (8 sources) Insulin Analog Start: 06-04-2023 insulin lispro (HumaLOG CONTRERAS) 100 unit/mL insulin pen, half-unit Indications: Type 2 diabetes mellitus with diabetic neuropathic arthropathy, with long-term current use of insulin ([facility]) Inject 15 Units under the skin in the morning and 15 Units at noon and 15 Units in the evening. Inject with meals. 30 mL 1 06/04/2023 Active Start: 03-22-2023 ADMELOG U-100 INSULIN LISPRO 100 unit/mL solution Indications: Type 2 diabetes mellitus with diabetic neuropathic arthropathy, with long-term current use of insulin ([facility]) Inject 15 Units under the skin in the morning and 15 Units at noon and 15 Units in the evening. Inject with meals. 0 03/22/2023 Active linezolid 600 mg oral tablet (7 sources) Oxazolidinone Antibacterial take 1 tablet by mouth in the morning, then take 1 tablet by mouth at bedtime linezolid (ZYVOX) 600 mg tablet Take 1 tablet (600 mg total) by mouth in the morning and 1 tablet (600 mg total) before bedtime. 0 Active losartan potassium 25 mg oral tablet (20 sources) Angiotensin 2 Receptor Doreen Start: 3 End: 4 take 1 tablet by mouth in the [...] October 26, 2021 11:00pm multivitamin (THERAGRAN) tablet (7 sources) take 1 tablet by mouth in [...] sources) Nitrate Vasodilator Start: 07-06-19 End: 10-28-19 nitroglycerin (NITROSTAT) 0.[address] [...] mg oral tablet (20 sources) Start: 12-21-2022 End: 06-02-2023 take 1 tablet by mouth every other day predniSONE (DELTASONE) 5 mg tablet Indications: Sarcoidosis with granulomatous hepatitis Take 1 tablet (5 mg total) by mouth every other day. 45 tablet 1 06/02/2023 Active Start: 10-14-2021 End: 10-27-2021 take 5 [...] aspirin 81 mg delayed release oral tablet (18 sources) Platelet Aggregation Inhibitor, Nonsteroidal Anti-inflammatory Drug [...] 10 mg daily orally Not-Taking/PRN Fluticasone Furoate-Vilanterol (17 sources) Corticosteroid, beta2-Adrenergic Agonist Start: 10-14-2021 End: [...] Start: 10-07-2020 take 1 puff(s) by mo uth once daily fluticasone furoate-vilanteroL (BREO ELLIPTA) 200-25 [...] 2021 8:20am ubidecarenone 200 mg oral capsule (19 sources) Start: 2 End: 2 Coenzyme Q10 [...] 03-02-2021 Chronic obstructive pulmonary disease and bronchiectasis (8 sources) Chronic obstructive pulmonary disease, unspecified; Translations: [Chronic obstructive lung disease] Onset: 04-22-2020 04-22-2020 Chronic Complications of surgical procedures or medical care (20 sources) Other complications of procedures, not elsewhere classified, sequela; Translations: [Other complications of procedures, not elsewhere classified, subsequent encounter] Onset: 02-08-2021 Resolved: 12-14-2021 Episodic Conduction disorders (10 sources) Presence of automatic (implantable) cardiac defibrillator; Translations: [Cardiac defibrillator in situ] Onset: 09-06-2015 04-12-2023 Chronic Congestive heart failure; nonhypertensive (11 sources) Chronic systolic (congestive) heart failure; Translations: [Chronic systolic heart failure] Onset: 01-22-2020 04-12-2023 Chronic Coronary atherosclerosis and other heart disease (20 sources) Old myocardial infarction; Translations: [Atherosclerotic heart disease of [place] coronary artery without angina pectoris] Onset: 11-23-2017 [...] Onset: 09-25-2018 10-22-2021 Chronic Diverticulosis and diverticulitis (7 sources) Diverticulosis of large intestine; Translations: [Diverticulosis of large intestine without perforation or abscess without bleeding] Onset: 04-07-2020 04-07-2020 Chronic Esophageal disorders (7 sources) Gastro-esophageal reflux disease with esophagitis; Translations: [...] kidney disease] Onset: 02-08-2021 Chronic Immunity disorders (8 sources) Sarcoidosis; Translations: [Sarcoidosis, unspecified] Onset: 12-21-2017 [...] sources) Long-term current use of insulin; Translations: [MCC (current) use of insulin] Episodic Other and ill-defined heart disease (8 sources) Mural thrombus of heart; Translations: [Intracardiac [...] Episodic Other ear and sense organ disorders (7 sources) Hearing loss; Translations: [Unspecified hearing loss, unspecified ear] Onset: 01-28-2020 01-28-2020 Chronic Other ear and sense organ disorders (7 sources) Sensorineural hearing loss, bilateral; Translations: [Sensorineural [...] Episodic Other nutritional; endocrine; and metabolic disorders (7 sources) 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; Translations: [Hypercalcemia] Onset: 04-22-2020 04-22-2020 Chronic Gissell-; endo-; and myocarditis; cardiomyopathy (except that caused by tuberculosis or sexually transmitted disease) (1 source) Cardiomyopathy in diseases classified elsewhere; Translations: [CARDIOMYOPATHY DZ CLASSIFIED ELSW] Onset: 03-02-2021 Chronic Residual codes; unclassified (1 source) Sleep apnea, unspecified; Translations: [SLEEP APNEA UNSPECIFIED] Onset: 03-02-2021 Chronic Residual codes; unclassified (17 sources) Obstructive sleep apnea syndrome; Translations: [Obstructive [...] ANKLE] Onset: 06-06-2021 Episodic Acute myocardial infarction (15 sources) Acute myocardial infarction, unspecified; Translations: [Acute [...] DEVC INIT] Onset: 03-02-2021 Episodic Esophageal disorders (7 sources) Esophageal mass; 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] Onset: 05-19-2020 05-19-2020 Episodic Infective arthritis and osteomyelitis (except that caused by tuberculosis or sexually transmitted disease) (20 sources) Osteomyelitis; Translations: [Osteomyelitis, unspecified] Onset: 01-10-2019 Resolved: 07-13-2022 Chronic Mood disorders (7 sources) Mood disorders Onset: 03-22-2023 03-22-2023 Mycoses (5 sources) Tinea unguium; Translations: [TINEA UNGUIUM] Onset: 05-03-2021 Episodic Open wounds of extremities (1 source) Unspecified open wound, right ankle, initial encounter; Translations: [UNS OPEN WOUND RIGHT ANKLE INITIAL] Onset: 01-18-2021 Episodic Other aftercare (1 source) 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; Translations: [CORRECTION CURRENT USE OF ASPIRIN] Onset: 03-02-2021 Episodic Other aftercare (1 source) MCC (current) use of insulin; Translations: [CORRECTION CURRENT USE OF INSULIN] Onset: 03-02-2021 Episodic Other aftercare (1 source) Other marine oil terminal 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 (current) drug therapy; Translations: [OTH FAMILY DEVELOPMENT EXTENSION SPECIALIST CURRENT DRUG THERAPY] Onset: 03-02-2021 Episodic Other aftercare (4 sources) Encounter for change or removal of nonsurgical wound dressing; Translations: [ENC CHG/REMOVAL NONSURG WOUND DRSG] Onset: 12-03-2020 Episodic Other aftercare (1 source) Encounter for removal of sutures Onset: 11-28-2021 Resolved: 11-28-2021 Episodic Other and unspecified benign neoplasm (7 sources) History of polyp of colon; Translations: [Personal history of colonic polyps] Onset: 03-19-2020 03-19-2020 Episodic Other and unspecified benign neoplasm (7 sources) Polyp of colon; Translations: [Polyp of colon] Onset: 04-07-2020 04-07-2020 Episodic Other connective tissue disease (5 sources) Pain in right foot; Translations: [PAIN IN RIGHT FOOT] Onset: 01-20-2021 Episodic Other connective tissue disease (1 source) Pain in right leg; Translations: [PAIN IN RIGHT LEG] Onset: 03-16-2021 Episodic Other ear and sense organ disorders (7 sources) Eczema of external auditory canal; Translations: [Acute eczematoid otitis externa, bilateral] Onset: 01-28-2020 Resolved: 12-28-2021 12-28-2021 Episodic Other ear and sense organ disorders (7 sources) Wax in ear canal; Translations: [Impacted cerumen, left ear] Onset: 01-28-2020 Resolved: 12-28-2021 12-28-2021 Episodic Other ear and sense organ disorders (7 sources) Lesion of external ear; Translations: [Disorder [...] Test Name Value Interpretation Reference Range Facility [facility] 04-19-2023 L Specimen: [id number] Received: 04/20/23 Status: SASHA Matta Num: [id number] Spec Type: Surgical Subm Dr: Salina Lee DPM, MS Tissues: A Bone Fragments - Other than Path Fracture (LT LATERAL MALLEOLUS) Procedures: HE, Gross/Micro L3, Decalcification Age/ Patient Sex Location Account Attending Physician Anai Goodman 67/M LABELL [id number] Salina Lee DPM, MS SPEC NUM: [id number] RECD: 04/20/23 STATUS: SASHA PULIDOSandy NUM: [id number] KARIME: 04/19/[address]: Salina Lee DPM, [...] in one cassette labeled A1. CPT Codes 51100, 54141 -------- -------- Specimen: [id number] Received: 04/20/23 Status: SASHA Matta Num: [id number] Spec Type: Surgical Subm Dr: Salina Lee,ERIKA, MS Tissues: A Bone Fragments - Other than Path Fracture (LT LATERAL MALLEOLUS) Procedures: HARRISON Gross/Josey L3, Decalcification -------- Patient: Anai Goodman [id number] (Continued) -------- Signed (signature on file) Aniket Krishnamurthy MD 04/23/[address] [facility] POCT EKGon 04-12-2023 [facility] MR ANKLE LT W WO CONTon [...] Mai Bennett MD on 04/05/2023 8:50 AM [facility] XR cervical spine 2Von 10-05 XR cervical spine 2V [facility] [place] [address] [place] [address] XRay Report Signed Patient: Anai Goodman MR#: [id number] : 1955 Acct:[id number] Age/Sex: 66 / M ADM Date: 10/05/22 Loc: XD Room: Type: [facility] Attending Dr: Dung Serna MD Copies [...] Jose Sanabria M.D.10/05/2022 12:36 PM Dictation Location: [place] [address] Transcribed By: [facility] 10/05/22 1236 Dictated By: Jose Sanabria DO 10/05/22 1233 Signed By: 10/05/22 1236 Normal [facility] Basophils Auto (Bld) [#/Vol] Ordered By: Spenser Elaine on 11-29-2021 Basophils (Bld) [#/Vol] 0.0 10*3/uL 0.0-0.2 [facility] Basophils/100 WBC Auto (Bld) Ordered By: Spenser Elaine on 11-29-2021 Basophils/100 WBC (Bld) 0.5 % . F [facility] Blood hemoglobin measurement (mass/volume)Ordered By: Spenser Elaine on 11-29-2021 Hemoglobin (Bld) [Mass/Vol] 12.6 g/dL 13.0-17.0 [facility] Blood leukocytes automated c ount (number/volume)Ordered By: Spenser Elaine on 11-29-2021 WBC (Bld) [#/Vol] 6.8 10*3/uL 4.5-11.0 [facility] COVID CepheidOrdered By: Junior Cortes on 11-29-2021 SARS-CoV-2 (COVID-19) Ab IA Ql Negative Negative [facility] Comment on above: This is a duplicate Cepheid Xpert Xpress CoV-2/Flu/RSV Plus RNA by RT-PCR result to be used for statistical tracking purpose only. SARS-CoV-2 (COVID-19) RNA MEREDITH+probe Ql (Unsp spec) [facility] [facility] Creat[facility] and Glomerular fi ltration rate.predicted panel (S/P/Bld)Ordered By: Spenser Elaine on 11-29-2021 Creatinine [Mass/Vol] 1.38 mg/dL 0.64-1.27 [facility] Eosinophils Auto (Bld) [#/Vo l]Ordered By: Spenser Chele on 11-29-2021 Eosinophils (Bld) [#/Vol] 0.5 10*3/uL 0.0-0.45 [facility] Eosinophils/100 WBC Auto (Bl d)Ordered By: Spenser Elaine on 11-29-2021 Eosinophils/100 WBC (Bld) 7.5 % . [facility] Erythrocyte distribution wid th Auto (RBC) [Ratio]Ordered By: Spenser Elaine on 11-29-2021 Erythrocyte distribution width (RBC) [Ratio] 15.7 % 12.0-14.8 [facility] Estimated glomerular filtrat ion rate (GFR) non- AmericanOrdered By: Spenser Elaine on 11-29-2021 GFR/1.73 sq M.predicted among non-blacks MDRD (S/P/Bld) [Vol rate/Area] 52 mL/Min [facility] Glucose Glucometer (BldC) [M ass/Vol]Ordered By: Reddy Brandt on 11-29-2021 Glucose [Mass/Vol] 141 mg/dL [facility] Comment on above: Random Glucose Refer ence Range is dependent on time and content of last meal. Glucose of more than 200 mg/dL in a nonstressed, ambulatory subject supports the diagnosis of Diabetes Mellitus. Hematocrit Auto (Bld) [Volum e fraction]Ordered By: Spenser Elaine on 11-29-2021 Hematocrit (Bld) [Volume fraction] 38.3 % 38.8-50.0 [facility] Laboratory - Hematology and Cell countsOrdered By: Spenser Elaine on 11-29-2021 Nucleated RBC/100 WBC (Bld) [Ratio] 0.0 % 0-0.5 [facility] Laboratory - Microbiology an d Antimicrobial susceptibilityOrdered By: César Cortes on 11-29-2021 SARS-CoV-2 (COVID-19) RNA MEREDITH+probe Ql (Unsp spec) N/A [facility] Lymphocytes Auto (Bld) [#/Vo l]Ordered By: Spenser Elaine on 11-29-2021 Lymphocytes (Bld) [#/Vol] 0.6 10*3/uL 1.00-4.8 [facility] Lymphocytes/100 WBC Auto (Bl d)Ordered By: Spenser Elaine on 11-29-2021 Lymphocytes/100 WBC (Bld) 9.0 % . [facility] MCH Auto (RBC) [Entitic mass ]Ordered By: pSenser Elaine on 11-29-2021 MCH (RBC) [Entitic mass] 27.6 pg 27.5-35.2 [facility] MCHC Auto (RBC) [Mass/Vol]Or dered By: Spenser Elaine on 11-29-2021 MCHC (RBC) [Mass/Vol] 32.8 g/dL 32.5-35.6 [facility] MCV Auto (RBC) [Entitic vol] Ordered By: Spenser Elaine on 11-29-2021 MCV (RBC) [Entitic vol] 84.3 fL 83.5-101 [facility] Monocytes Auto (Bld) [#/Vol] Ordered By: Spenser Elaine on 11-29-2021 Monocytes (Bld) [#/Vol] 0.7 10*3/uL 0.0-0.8 [facility] Monocytes/100 WBC Auto (Bld) Ordered By: Spenser Elaine on 11-29-2021 Monocytes/100 WBC (Bld) 10.9 % . [facility] Neutrophils Auto (Bld) [#/Vo l]Ordered By: Spenser Elaine on 11-29-2021 Neutrophils (Bld) [#/Vol] 4.9 10*3/uL 1.8-7.7 [facility] Neutrophils/100 WBC Auto (Bl d)Ordered By: Spenser Elaine on 11-29-2021 Neutrophils/100 WBC (Bld) 72.1 % . [facility] No Panel InformationOrdered By: Reddy Brandt on 11-29-2021 Bedside Glucose Comment Glu2: cleaned meter [facility] No Panel InformationOrdered By: Spenser Elaine on 11-29-2021 Estimated GFR () > 60 mL/Min [facility] Comment on above: GFR estimated refere nce range: According to KDOQI guidelines, <60 ml/min/1.73m2 is sufficient to diagnose a patient with chronic kidney disease. Pharmacy Creatinine Clearance (Chem 66.84 [facility] Platelet mean volume Auto (B ld) [Entitic vol]Ordered By: Spenser Elaine on 11-29-2021 Platelet mean volume (Bld) [Entitic vol] 9.3 fL 6.6-10.1 [facility] Platelets Auto (Bld) [#/Vol] Ordered By: Spenser Elaine on 11-29-2021 Platelets (Bld) [#/Vol] 142 10*3/uL 150-450 [facility] RBC Auto (Bld) [#/Vol]Ordere d By: Spenser Elaine on 11-29-2021 RBC (Bld) [#/Vol] 4.54 10*6/uL 3.90-5.[address] [facility] Serum or plasma anion gap de terminationOrdered By: Spenser Elaine on 11-29-2021 Anion gap [Moles/Vol] 12.0 mmol/L 6.0-15.0 [facility] Serum or plasma calcium sergei urement (mass/volume)Ordered By: Spenser Elaine on 11-29-2021 Calcium [Mass/Vol] 10.0 mg/dL 8.2-10.2 [facility] Serum or plasma chloride zofia surement (moles/volume)Ordered By: Spenser Elaine on 11-29-2021 Chloride [Moles/Vol] 100 mmol/L 95-114 [facility] Serum or plasma glucose sergei urement (mass/volume)Ordered By: Spenser Elaine on 11-29-2021 Glucose [Mass/Vol] 130 mg/dL 70-100 [facility] Comment on above: ADA recommended refe [...] on 11-29-2021 Sodium [Moles/Vol] 138 mmol/L 136-146 [facility] Serum or plasma total carbon dioxide measurement (moles/volume)Ordered By: Spenser Elaine on 11-29-2021 CO2 [Moles/Vol] 30.0 mmol/L 22.0-30.0 [facility] Serum or plasma urea nitroge n measurement (mass/volume)Ordered By: Spenser Elaine on 11-29-2021 Urea nitrogen [Mass/Vol] 22 mg/dL 9-23 [facility] Glucose Glucometer (BldC) [M ass/Vol]Ordered By: Reddy Brandt on 11-03-2021 Glucose [Mass/Vol] 174 mg/dL [facility] Comment on above: Random Glucose Refer ence Range is dependent on time and content of last meal. Glucose of more than 200 mg/dL in a nonstressed, ambulatory subject supports the diagnosis of Diabetes Mellitus. No Panel InformationOrdered By: Reddy Brandt on 11-03-2021 Bedside Glucose Comment Glu2: cleaned meter [facility] COVID-19 Positive/NegativeOr dered By: Reddy Brandt on 11-02-2021 SARS-CoV-2 (COVID-19) N gene MEREDITH+probe Ql (Resp) Negative Negative [facility] Comment on above: Testing for SARS-CoV -2 by RT-PCR This test was developed and its performance characteristics determined by [employer] and validated at the [facility]. This test has not been FDA [...] characteristics determined by [employer] and validated at the [facility]. This test has not been FDA [...] Kaye on 10-27-2021 Glucose [Mass/Vol] 166 mg/dL [facility] Comment on above: Random Glucose Refer ence Range is dependent on time and content of last meal. Glucose of more than 200 mg/dL in a nonstressed, ambulatory subject supports the diagnosis of Diabetes Mellitus. No Panel InformationOrdered By: Ghanshyam Kaye on 10-27-2021 Bedside Glucose Comment Glu2: cleaned meter [facility] Basophils Auto (Bld) [#/Vol] Ordered By: Chante Narayan on 10-25-2021 Basophils (Bld) [#/Vol] 0.0 10*3/uL 0.0-0.2 [facility] Basophils/100 WBC Auto (Bld) Ordered By: Chante Narayan on 10-25-2021 Basophils/100 WBC (Bld) 0.3 % . [facility] Blood hemoglobin measurement (mass/volume)Ordered By: Chante Narayan on 10-25-2021 Hemoglobin (Bld) [Mass/Vol] 11.2 g/dL 13.0-17.0 [facility] Blood leukocytes automated c ount (number/volume)Ordered By: Chante Narayan on 10-25-2021 WBC (Bld) [#/Vol] 5.7 10*3/uL 4.5-11.0 [facility] Creatinine and Glomerular fi ltration rate.predicted panel (S/P/Bld)Ordered By: Chante Nraayan on 10-25-2021 Creatinine [Mass/Vol] 1.24 mg/dL 0.64-1.27 [facility] Eosinophils Auto (Bld) [#/Vo l]Ordered By: Chante Narayan on 10-25-2021 Eosinophils (Bld) [#/Vol] 0.4 10*3/uL 0.0-0.45 [facility] Eosinophils/100 WBC Auto (Bl d)Ordered By: Chante Narayan on 10-25-2021 Eosinophils/100 WBC (Bld) 6.7 % . [facility] Erythrocyte distribution wid th Auto (RBC) [Ratio]Ordered By: Chante Narayan on 10-25-2021 Erythrocyte distribution width (RBC) [Ratio] 17.6 % 12.0-14.8 [facility] Estimated glomerular filtrat ion rate (GFR) non- AmericanOrdered By: Chante Narayan on 10-25-2021 GFR/1.73 sq M.predicted among non-blacks MDRD (S/P/Bld) [Vol rate/Area] 59 mL/Min [facility] Hematocrit Auto (Bld) [Volum e fraction]Ordered By: Chante Narayan on 10-25-2021 Hematocrit (Bld) [Volume fraction] 33.0 % 38.8-50.0 [facility] Laboratory - Hematology and Cell countsOrdered By: Chante Narayan on 10-25-2021 Nucleated RBC/100 WBC (Bld) [Ratio] 0.1 % 0-0.5 [facility] Lymphocytes Auto (Bld) [#/Vo l]Ordered By: Chatne Narayan on 10-25-2021 Lymphocytes (Bld) [#/Vol] 0.5 10*3/uL 1.00-4.8 [facility] Lymphocytes/100 WBC Auto (Bl d)Ordered By: Chante Narayan on 10-25-2021 Lymphocytes/100 WBC (Bld) 9.4 % . [facility] MCH Auto (RBC) [Entitic mass ]Ordered By: Chante Narayan on 10-25-2021 MCH (RBC) [Entitic mass] 29.3 pg 27.5-35.2 [facility] MCHC Auto (RBC) [Mass/Vol]Or dered By: Chante Narayan on 10-25-2021 MCHC (RBC) [Mass/Vol] 33.8 g/dL 32.5-35.6 [facility] MCV Auto (RBC) [Entitic vol] Ordered By: Chante Narayan on 10-25-2021 MCV (RBC) [Entitic vol] 86.7 fL 83.5-101 [facility] Monocytes Auto (Bld) [#/Vol] Ordered By: Chante Narayan on 10-25-2021 Monocytes (Bld) [#/Vol] 0.8 10*3/uL 0.0-0.8 [facility] Monocytes/100 WBC Auto (Bld) Ordered By: Chante Narayan on 10-25-2021 Monocytes/100 WBC (Bld) 14.5 % . [facility] Neutrophils Auto (Bld) [#/Vo l]Ordered By: Chante Narayan on 10-25-2021 Neutrophils (Bld) [#/Vol] 4.0 10*3/uL 1.8-7.7 [facility] Neutrophils/100 WBC Auto (Bl d)Ordered By: Chante Narayan on 10-25-2021 Neutrophils/100 WBC (Bld) 69.1 % . [facility] No Panel InformationOrdered By: Chante Narayan on 10-25-2021 Estimated GFR () > 60 mL/Min [facility] Comment on above: GFR estimated refere nce range: According to KDOQI guidelines, <60 ml/min/1.73m2 is sufficient to diagnose a patient with chronic kidney disease. Pharmacy Creatinine Clearance (Chem 60.35 [facility] Platelet mean volume Auto (B ld) [Entitic vol]Ordered By: Chante Narayan on 10-25-2021 Platelet mean volume (Bld) [Entitic vol] 8.6 fL 6.6-10.1 [facility] Platelets Auto (Bld) [#/Vol] Ordered By: Chante Narayan on 10-25-2021 Platelets (Bld) [#/Vol] 159 10*3/uL 150-450 [facility] RBC Auto (Bld) [#/Vol]Ordere d By: Chante Narayan on 10-25-2021 RBC (Bld) [#/Vol] 3.81 10*6/uL 3.90-5.[address] [facility] Serum or plasma calcium sergei urement (mass/volume)Ordered By: Chante Narayan on 10-25-2021 Calcium [Mass/Vol] 9.1 mg/dL 8.2-10.2 [facility] Serum or plasma chloride zofia surement (moles/volume)Ordered By: Chante Narayan on 10-25-2021 Chloride [Moles/Vol] 102 mmol/L 95-114 [facility] Serum or plasma glucose sergei urement (mass/volume)Ordered By: Chante Narayan on 10-25-2021 Glucose [Mass/Vol] 176 mg/dL 70-100 [facility] Comment on above: ADA recommended refe [...] on 10-25-2021 Sodium [Moles/Vol] 136 mmol/L 136-146 [facility] Serum or plasma total carbon dioxide measurement (moles/volume)Ordered By: Chante Narayan on 10-25-2021 CO2 [Moles/Vol] 25.8 mmol/L 22.0-30.0 [facility] Serum or plasma urea nitroge n measurement (mass/volume)Ordered By: Chante Narayan on 10-25-2021 Urea nitrogen [Mass/Vol] 32 mg/dL 12-23 [facility] Albumin [Mass/volume] in Ser um or PlasmaOrdered By: Chante Narayan on 10-22-2021 Albumin [Mass/Vol] 3.1 g/dL 3.2-5.5 [facility] Globulin Calc (S) [Mass/Vol] Ordered By: Chante Narayan on 10-22-2021 Globulin (S) [Mass/Vol] 3.0 g/dL [facility] Protein [Mass/volume] in Ser um or PlasmaOrdered By: Chante Narayan on 10-22-2021 Protein [Mass/Vol] 6.1 g/dL 6.1-7.9 [facility] Serum or plasma alanine dasilva otransferase measurement without P-5'-P (enzymatic activiOrdered By: Chante Narayan on 10-22-2021 ALT No additional P-5'-P [Catalytic activity/Vol] 21 U/L 10-60 [facility] Serum or plasma albumin/glob ulin mass ratioOrdered By: Chante Narayan on 10-22-2021 Albumin/Globulin [Mass ratio] 1.0 {ratio} [facility] Serum or plasma alkaline bob sphatase measurement (enzymatic activity/volume)Ordered By: Chante Narayan on 10-22-2021 ALP [Catalytic activity/Vol] 71 U/L 32-92 [facility] Serum or plasma aspartate am inotransferase measurement (enzymatic activity/volume)Ordered By: Chante Narayan on 10-22-2021 AST [Catalytic activity/Vol] 23 U/L 10-42 [facility] Serum or plasma prealbumin m easurement (mass/volume)Ordered By: Chante Narayan on 10-22-2021 Prealbumin [Mass/Vol] 19.4 mg/dL 18.0-38.0 [facility] Serum or plasma total biliru bin measurement (mass/volume)Ordered By: Chante Narayan on 10-22-2021 Bilirubin [Mass/Vol] 1.0 mg/dL 0.3-1.2 [facility] Bacteria identified Anaer cx Nom (Unsp spec)Ordered By: Reddy Brandt on 10-21-2021 Anaerobic microbial culture No Anaerobes Isolated 3 Days [facility] COVID-19 Positive/NegativeOr dered By: Reddy Brandt on 10-21-2021 SARS-CoV-2 (COVID-19) N gene MEREDITH+probe Ql (Resp) Negative Negative [facility] Comment on above: Testing for SARS-CoV -2 by RT-PCR This test was developed and its performance characteristics determined by [employer] and validated at the [facility]. This test has not been FDA [...] Brandt on 10-21-2021 Glucose [Mass/Vol] 298 mg/dL [facility] Comment on above: Random Glucose Refer ence Range is dependent on time and content of last meal. Glucose of more than 200 mg/dL in a nonstressed, ambulatory subject supports the diagnosis of Diabetes Mellitus. No Panel InformationOrdered By: Reddy Brandt on 10-21-2021 Bedside Glucose Comment Glu2: cleaned meter [facility] Bedside Glucose #2 Comment Cleaned meter [facility] ABO and Rh group post transf usion reaction Nom (Bld)Ordered By: Reddy Brandt on 10-19-2021 Microscopic observation Gram stain Nom (Unsp spec) [facility] COVID-19 Positive/NegativeOr dered By: Reddy Brandt on 10-14-2021 SARS-CoV-2 (COVID-19) N gene MEREDITH+probe Ql (Resp) Negative Negative [facility] Comment on above: Testing for SARS-CoV -2 by RT-PCR This test was developed and its performance characteristics determined by [employer] ([employer] and validated at the [facility]. This test has not been FDA [...] 10-06-2021 Basophils (Bld) [#/Vol] 0.0 10*3/uL 0.0-0.2 [facility] Basophils/100 WBC Auto (Bld) Ordered By: Reddy Brandt on 10-06-2021 Basophils/100 WBC (Bld) 0.6 % . [facility] Blood hemoglobin measurement (mass/volume)Ordered By: Reddy Brandt on 10-06-2021 Hemoglobin (Bld) [Mass/Vol] 13.7 g/dL 13.0-17.0 [facility] Blood leukocytes automated c ount (number/volume)Ordered By: Reddy Brandt on 10-06-2021 WBC (Bld) [#/Vol] 7.8 10*3/uL 4.5-11.0 [facility] Creatinine and Glomerular fi ltration rate.predicted panel (S/P/Bld)Ordered By: Reddy Brandt on 10-06-2021 Creatinine [Mass/Vol] 1.76 mg/dL 0.64-1.27 [facility] Eosinophils Auto (Bld) [#/Vo l]Ordered By: Reddy Brandt on 10-06-2021 Eosinophils (Bld) [#/Vol] 0.4 10*3/uL 0.0-0.45 [facility] Eosinophils/100 WBC Auto (Bl d)Ordered By: Reddy Brandt on 10-06-2021 Eosinophils/100 WBC (Bld) 4.9 % . [facility] Erythrocyte distribution wid th Auto (RBC) [Ratio]Ordered By: Reddy Brandt on 10-06-2021 Erythrocyte distribution width (RBC) [Ratio] 18.8 % 12.0-14.8 [facility] Erythrocyte sedimentation ra te by Photometric methodOrdered By: Reddy Brandt on 10-06-2021 ESR Photometric method (Bld) [Velocity] 21 mm/hr 0-19 [facility] Estimated glomerular filtrat ion rate (GFR) non- AmericanOrdered By: Reddy Brandt on 10-06-2021 GFR/1.73 sq M.predicted among non-blacks MDRD (S/P/Bld) [Vol rate/Area] 39 mL/Min [facility] Glucose mean value [Mass/vol ume] in Blood Estimated from glycated hemoglobinOrdered By: Reddy Brandt on 10-06-2021 Average glucose Estimated from glycated hemoglobin (Bld) [Mass/Vol] 163 mg/dL [facility] Hematocrit Auto (Bld) [Volum e fraction]Ordered By: Reddy Brandt on 10-06-2021 Hematocrit (Bld) [Volume fraction] 41.1 % 38.8-50.0 [facility] Hemoglobin A1c percentageOrd ered By: Reddy Brandt on 10-06-2021 HbA1c (Bld) [Mass fraction] 7.3 % 4.3-5.6 [facility] Comment on above: Increased risk for d iabetes: 5.7 - 6.4 diabetes: >6.4 glycemic control for adults with diabetes: <7.0 Laboratory - Hematology and Cell countsOrdered By: Reddy Brandt on 10-06-2021 Nucleated RBC/100 WBC (Bld) [Ratio] 0.0 % 0-0.5 [facility] Lymphocytes Auto (Bld) [#/Vo l]Ordered By: Reddy Brandt on 10-06-2021 Lymphocytes (Bld) [#/Vol] 0.8 10*3/uL 1.00-4.8 [facility] Lymphocytes/100 WBC Auto (Bl d)Ordered By: Reddy Brandt on 10-06-2021 Lymphocytes/100 WBC (Bld) 10.9 % . [facility] MCH Auto (RBC) [Entitic mass ]Ordered By: Reddy Brandt on 10-06-2021 MCH (RBC) [Entitic mass] 28.8 pg 27.5-35.2 [facility] MCHC Auto (RBC) [Mass/Vol]Or dered By: Reddy Brandt on 10-06-2021 MCHC (RBC) [Mass/Vol] 33.3 g/dL 32.5-35.6 [facility] MCV Auto (RBC) [Entitic vol] Ordered By: Reddy Brandt on 10-06-2021 MCV (RBC) [Entitic vol] 86.3 fL 83.5-101 [facility] Monocytes Auto (Bld) [#/Vol] Ordered By: Reddy Brandt on 10-06-2021 Monocytes (Bld) [#/Vol] 0.9 10*3/uL 0.0-0.8 [facility] Monocytes/100 WBC Auto (Bld) Ordered By: Reddy Brandt on 10-06-2021 Monocytes/100 WBC (Bld) 11.8 % . [facility] Neutrophils Auto (Bld) [#/Vo l]Ordered By: Reddy Brandt on 10-06-2021 Neutrophils (Bld) [#/Vol] 5.6 10*3/uL 1.8-7.7 [facility] Neutrophils/100 WBC Auto (Bl d)Ordered By: Reddy Brandt on 10-06-2021 Neutrophils/100 WBC (Bld) 71.8 % . [facility] No Panel InformationOrdered By: Reddy Brandt on 10-06-2021 Estimated GFR () 48 mL/Min [facility] Comment on above: GFR estimated refere nce range: According to KDOQI guidelines, <60 ml/min/1.73m2 is sufficient to diagnose a patient with chronic kidney disease. Pharmacy Creatinine Clearance (Chem N/A [facility] Platelet mean volume Auto (B ld) [Entitic vol]Ordered By: Reddy Brandt on 10-06-2021 Platelet mean volume (Bld) [Entitic vol] 9.1 fL 6.6-10.1 [facility] Platelets Auto (Bld) [#/Vol] Ordered By: Reddy Brandt on 10-06-2021 Platelets (Bld) [#/Vol] 131 10*3/uL 150-450 [facility] RBC Auto (Bld) [#/Vol]Ordere d By: Reddy Brandt on 10-06-2021 RBC (Bld) [#/Vol] 4.77 10*6/uL 3.90-5.[address] [facility] Serum or plasma C reactive p rotein measurement (mass/volume)Ordered By: Reddy Brandt on 10-06-2021 CRP [Mass/Vol] 0.5 mg/dL 0.0-1.0 [facility] Serum or plasma chloride zofia surement (moles/volume)Ordered By: Reddy Brandt on 10-06-2021 Chloride [Moles/Vol] 93 mmol/L 95-114 [facility] Serum or plasma potassium me asurement (moles/volume)Ordered By: Reddy Brandt on 10-06-2021 Potassium [Moles/Vol] 3.8 mmol/L 3.5-5.1 [facility] Serum or plasma sodium measu rement (moles/volume)Ordered By: Reddy Brandt on 10-06-2021 Sodium [Moles/Vol] 139 mmol/L 136-146 [facility] Serum or plasma total carbon dioxide measurement (moles/volume)Ordered By: Reddy Brandt on 10-06-2021 CO2 [Moles/Vol] 31.4 mmol/L 22.0-30.0 [facility] Serum or plasma urea nitroge n measurement (mass/volume)Ordered By: Reddy Brnadt on 10-06-2021 Urea nitrogen [Mass/Vol] 52 mg/dL 12-23 [facility] WOUND CULTUREon 09-12-2021 Bacteria identified Aer cx Nom (Unsp spec) Final report Normal [facility] Comment on above: Performed By: #### C XWND ####[facility] [address] [place] [address]Dr. Anjali Reagan Result 1 Mixed skin areli Normal [facility] Comment on above: Performed By: #### C XWND ####[facility] [address] [place] [address]Dr. Anjali Reagan CBC AUTO DIFFon 09-09-2021 BASO # 0.0 103/ul Normal 0.0-0.1 [facility] Comment on above: Performed By: #### C BC ####[facility] [address] [place], [place] [address]Dr. Anjali Reagan Basophils/100 WBC (Bld) 0.6 % Normal 0.2-2.0 [facility] Comment on above: Performed By: #### C BC ####[facility] [address] [place], [place] [address]Dr. Anjali Reagan EO # 0.3 103/ul Normal 0.0-0.7 [facility] Comment on above: Performed By: #### C BC ####[facility] [address] [place], [place] [address]Dr. Anjali Reagan Eosinophils/100 WBC (Bld) 4.1 % Normal 0.9-7.0 [facility] Comment on above: Performed By: #### C BC ####[facility] [address] [place], [place] [address]Dr. Anjali Reagan Erythrocyte distribution width (RBC) [Ratio] 16.1 % Critically high 11.0-15.0 [facility] Comment on above: Performed By: #### C BC ####[facility] [address] [place], [place] [address]Dr. Anjali Reagan Hematocrit (Bld) [Volume fraction] 38.3 % Critically low 42.0-54.0 [facility] Comment on above: Performed By: #### C BC ####[facility] [address] [place] [address]Dr. Anjali Reagan Hemoglobin (Bld) [Mass/Vol] 12.0 g/dL Critically low 14.0-18.0 [facility] Comment on above: Performed By: #### C BC ####[facility] [address] [place] [address]Dr. Anjali Reagan IG # 0.04 10e3/ul Critically high 0.00-0.03 [facility] Comment on above: Performed By: #### C BC ####[facility] [address] [place] [address]Dr. Anjali Reagan IG % 0.6 % Critically high 0.0-0.5 [facility] Comment on above: Performed By: #### C BC ####[facility] [address] [place] [address]Dr. Anjali Reagan LYMPH # 0.9 103/ul Critically low 1.2-3.8 [facility] Comment on above: Performed By: #### C BC ####[facility] [address] [place] [address]Dr. Anjali Reagan Lymphocytes/100 WBC (Bld) 12.6 % Critically low 20.5-60.0 [facility] Comment on above: Performed By: #### C BC ####[facility] [address] [place] [address]Dr. Anjali Tez MANUAL DIFF REQ NO Normal [facility] Comment on above: Performed By: #### C BC ####[facility] [address] [place] [address]Dr. Anjali Reagan MCH (RBC) [Entitic mass] 27.5 pg Normal 25.9-34.0 [facility] Comment on above: Performed By: #### C BC ####[facility] [address] [place] [address]Dr. Anjali Tez MCHC (RBC) [Mass/Vol] 31.3 g/dL Normal 29.9-35.2 [facility] Comment on above: Performed By: #### C BC ####[facility] [address] [place] [id number]. Anjali Reagan MCV (RBC) [Entitic vol] 87.6 fL Normal 80.0-94.0 [facility] Comment on above: Performed By: #### C BC ####[facility] Bjhnphkhtf8[address] [place] [id number]. Anjali Reagan MONO # 0.7 103/ul Normal 0.3-0.8 [facility] Comment on above: Performed By: #### C BC ####[facility] Leavnzfjih19[address] [place] [address]Dr. Anjali Tez Monocytes/100 WBC (Bld) 10.3 % Normal 1.7-12.0 [facility] Comment on above: Performed By: #### C BC ####[facility] Ebpqcouoxg[address] [place], [place] [address]Dr. Anjali Reagan NEUT # 5.1 103/ul Normal 1.4-6.5 [facility] Comment on above: Performed By: #### C BC ####[facility] Wlbbxwfadt0889 [place] [id number]. Anjali Tez Neutrophils/100 WBC (Bld) 71.8 % Normal 43.0-75.0 [facility] Comment on above: Performed By: #### C BC ####[facility] Dqurqmsuox3434 [place] [address]Dr. Anjali Tez Platelet mean volume (Bld) [Entitic vol] 9.4 fL Critically low 9.5-13.5 [facility] Comment on above: Performed By: #### C BC ####[facility] Fjym[address]up[address] [place], [place] [id number]. Anjali Tez PLT 249 103/ul Normal 150-450 The [facility] Comment on above: Performed By: #### C BC ####[facility] Gfsqcpahfr8310 [place] [phone]. Biancaramona Tez RBC 4.37 106/ul Critically low 4.70-6.10 The [facility] Comment on above: Performed By: #### C BC ####[facility] Wytctdtjbx3150 [place] [id number]. Anjali Reagan WBC 7.1 103/ul Normal 4.0-11.0 The [facility] Comment on above: Performed By: #### C BC ####[facility] Jqeizpbrqb7568 [place] [phone]. Anjali Reagan CRPon 09-09-2021 CRP 1.9 mg/dL Critically high <=1.0 The [facility] Comment on above: Performed By: #### C RP, CMP ####[facility] Qtafrsaqgx5638 [place] [phone]. Biancaramona Reagan GRAM STAINon 09-09-2021 COMMENTS NO ORGANISMS OBSERVED Normal The [facility] Comment on above: Performed By: #### G STAIN ####[facility] B[address]ijjuhpqs[address] [place], [place] [address]Dr. Anjali Reagan DIPHTHEROIDS Normal The [facility] Comment on above: Performed By: #### G STAIN ####[facility] Ehkwhrtskc4997 [place] [address]Dr. Anjali Reagan EPITHELIALS Normal The [facility] Comment on above: Performed By: #### G STAIN ####[facility] Ztxppbswpl0578 [place] [address]Dr. Anjali Reagan FUNGAL ELEMENTS Normal The [facility] Comment on above: Performed By: #### G STAIN ####[facility] Jnbwqwtmrr[address] [place], [place] [address]Dr. Anjali Reagan GRAM NEG BACILLI Normal The [facility] Comment on above: Performed By: #### G STAIN ####[facility] Fpssfdyrhh3352 [place] [phone]. Anjali Reagan GRAM NEG DIPPLOCOCCI Normal The [facility] Comment on above: Performed By: #### G STAIN ####[facility] Cdlrmwzxqz4961 [place] [phone]. Anjali Reagan GRAM POS BACILLI Normal The [facility] Comment on above: Performed By: #### G STAIN ####[facility] Gsiukvhepp5526 [place] [phone]. Anjali Reagan GRAM POSITIVE COCCI Normal [facility] Comment on above: Performed By: #### G STAIN ####[facility] Jboqxmoyfw9012 [place] [address]Dr. Anjali Reagan GRAM STAIN SOURCE Left foot lateral Normal [facility] Comment on above: Performed By: #### G STAIN ####[facility] Gkmwgokqje2146 [place] [address]Dr. Anjali eRagan GS_DIPTH Normal [facility] Comment on above: Performed By: #### G STAIN ####[facility] Pqshcjhuzw5525 [place] [address]Dr. Anjali Reagan WBC RARE [facility] Comment on above: Performed By: #### G STAIN ####[facility] Wjnqkqudap4263 [place] [address]Dr. Anjali Reagan PROF 14(COMP METB)on 022 Albumin [Mass/Vol] 3.5 g/dL Normal 3.4-5.0 [facility] Comment on above: Performed By: #### C RP, CMP ####[facility] Dsyuqznjtt2645 [place] [address]Dr. Anjali Reagan Albumin/Globulin [Mass ratio] 0.8 {ratio} [facility] Comment on above: Performed By: #### C RP, CMP ####[facility] Iizsmhyzbt3170 [place] [address]Dr. Anjali Reagan ALP [Catalytic activity/Vol] 136 U/L Critically high 46-116 [facility] Comment on above: Performed By: #### C RP, CMP ####[facility] Zhqkonwxnv9979 [place] [address]Dr. Anjali Reagan ALT [Catalytic activity/Vol] 34 U/L Normal 16-63 [facility] Comment on above: Performed By: #### C RP, CMP ####[facility] Shoklxunck2340 [place] [address]Dr. Anjali Reagan Anion gap [Moles/Vol] 12.9 mmol/L Normal [facility] Comment on above: Performed By: #### C RP, CMP ####[facility] Hajqjqsvck8268 [place] [phone]. Anjali Reagan AST [Catalytic activity/Vol] 27 U/L Normal 15-37 [facility] Comment on above: Performed By: #### C RP, CMP ####[facility] Xxvupvhiwa6789 [place] [address]Dr. Anjali Reagan Bilirubin [Mass/Vol] 0.4 mg/dL Normal 0.2-1.0 [facility] Comment on above: Performed By: #### C RP, CMP ####[facility] Iyeooaqjok4[address] [place], [place] [address]Dr. Anjali Reagan Calcium [Mass/Vol] 9.7 mg/dL Normal 8.5-10.1 [facility] Comment on above: Performed By: #### C RP, CMP ####[facility] Tioossziis[address] [place], [place] [address]Dr. Anjali Reagan Chloride [Moles/Vol] 103 mmol/L Normal 98-107 The [facility] Comment on above: Performed By: #### C RP, CMP ####[facility] Pdzeotnegr5810[address] [place], [place] [address]Dr. Anjali Reagan CO2 [Moles/Vol] 28.9 mmol/L Normal 21.0-32.0 The [facility] Comment on above: Performed By: #### C RP, CMP ####[facility] Rixazbkhpt7[address] [place], [place] [address]Dr. Anjali Reagan Creatinine [Mass/Vol] 1.57 mg/dL Critically high 0.70-1.30 [facility] Comment on above: Performed By: #### C RP, CMP ####[facility] Jvduhkcnon3[address] [place], [place] [address]Dr. Anjali Reagan EGFR-AF FRENCH 54 mL/min/1.73m2 Critically low >=60 The [facility] Comment on above: Performed By: #### C RP, CMP ####[facility] Psnuqmmbhs[address] [place], [place] [address]Dr. Anjali Reagan EGFR-NON AF FRENCH 45 mL/min/1.73m2 Critically low >=60 The [facility] Comment on above: Performed By: #### C RP, CMP ####[facility] Orngtprnpm8005 [place] [address]Dr. Anjali Reagan Globulin (S) [Mass/Vol] 4.5 g/dL Normal [facility] Comment on above: Performed By: #### C RP, CMP ####[facility] Edupphjxgx8401[address] [place], [place] [address]Dr. Anjali Reagan Glucose [Mass/Vol] 174 mg/dL Critically high 74-106 [facility] Comment on above: Performed By: #### C RP, CMP ####[facility] Xghdwaeuqi5[address] [place], [place] [address]Dr. Anjali Reagan Potassium [Moles/Vol] 4.8 mmol/L Normal 3.5-5.1 The [facility] Comment on above: Performed By: #### C RP, CMP ####[facility] Mrfaznikmz2550[address] [place], [place] [address]Dr. Anjali Reagan Protein [Mass/Vol] 8.0 g/dL Normal 6.4-8.2 [facility] Comment on above: Performed By: #### C RP, CMP ####[facility] Cgbjmisler84[address] [place], [place] [address]Dr. Anjali Reagan Sodium [Moles/Vol] 140 mmol/L Normal 136-145 [facility] Comment on above: Performed By: #### C RP, CMP ####[facility] Euixwpxugt14[address] [place], [place] [address]Dr. Anjali Reagan Urea nitrogen [Mass/Vol] 34.0 mg/dL Critically high 7.0-18 .0 [facility] Comment on above: Performed By: #### C RP, CMP ####[facility] Hefkcqblmf940[address] [place], [place] [address]Dr. Anjali Reagan Urea nitrogen/Creatinine [Mass ratio] 21.7 mg/mg Normal [facility] Comment on above: Performed By: #### C RP, CMP ####[facility] Gyzvzjzork[address] [place], [place] [address]Dr. Biancaramona Tez XR FOOT RT MIN 3 VIEWSon XR FOOT RT MIN 3 VIEWS Normal Th e [facility] XR ANKLE RT MIN 3 VIEWSon XR ANKLE RT MIN 3 VIEWS Normal T he [facility] CULTURE BLOODon 08-26-2021 Microscopic examination of blood, culture Culture Observations: NO GROWTH AT 5 DAYS. Normal The [facility] Comment on above: Performed By: #### B LDCX2 ####[facility] Afkrwxtlaz489[address] [place], [place] [address]Dr. Biancaramona Tez Microscopic examination of blood, culture Culture Observations: NO GROWTH AT 5 DAYS. Normal The [facility] Comment on above: Performed By: #### B LDCX1 ####[facility] Jfjfzkzixr[address] [place], [place] [address]Dr. Biancaramona Tez PREALBUMINon 08-26-2021 Prealbumin [Mass/Vol] 14 mg/dL Normal 10-36 The [facility] Comment on above: Performed By: #### P REALBL ####[facility] Zcvzdlwiao14[address] [place], [place] [address]Dr. Anjali Tez CBC W MANUAL DIFFon 08-25-19 ANISOCYTOSIS SLIGHT Normal [facility] Comment on above: Performed By: #### C BCMAN ####[facility] Lovnhrfvau7[address] [place], [place] [address]Dr. Biancaramona Tez ATYPICAL LYMPH # Normal The [facility] Comment on above: Performed By: #### C BCMAN ####[facility] Umnhwjolht[address] [place], [place] [address]Dr. Anjali Reagan ATYPICAL LYMPH % Normal The [facility] Comment on above: Performed By: #### C BCMAN ####[facility] Pdnkbsiore6[address] [place], [place] [address]Dr. Anjali Reagan BAND # Normal 0.0-0.3 The [facility] Comment on above: Performed By: #### C BCMAN ####[facility] Onuyxdyjys99[address] [place], [place] [address]Dr. Anjali Reagan BAND % Normal 0-5 The [facility] Comment on above: Performed By: #### C BCMAN ####[facility] Dmoqjueoki5947 [place], [place] [address]Wa. Anjali Reagan BASOM # 0.00 103/ul Normal 0.00-0.10 The [facility] Comment on above: Performed By: #### C BCMAN ####[facility] Bdqzxspjar4846 [place] [phone]. Anjali Reagan BASOM % 0.0 % Critically low 0.2-2.0 The [facility] Comment on above: Performed By: #### C BCMAN ####[facility] Rmcovhxdni5648 [place] [phone]. Anjali Reagan BLAST # Normal The [facility] Comment on above: Performed By: #### C BCFIONA ####[facility] Wejupxoyqu7962 [place] [phone]. Anjali Reagan BLAST % Normal The [facility] Comment on above: Performed By: #### C BCFIONA ####[facility] Ieqizlobza9926 [place] [phone]. Anjali Reagan CORRECTED WBC Normal 4.0-11.0 The [facility] Comment on above: Performed By: #### C BCFIONA ####[facility] Wjnnmdfyna9284 [place] [phone]. Anjali Reagan EOS # 0.34 103/ul Normal 0.00-0.70 The [facility] Comment on above: Performed By: #### C BCFIONA ####[facility] Xmhhgxgwjr1718 [place] [address]Dr. Anjali Reagan EOS% 3.0 % Normal 0.9-7.0 The [facility] Comment on above: Performed By: #### C BCMAN ####[facility] Yqvcvbfawf4007 [place] [phone]. Anjali Reagan HCT 36.2 % Critically low 42.0-54.0 The [facility] Comment on above: Performed By: #### C BCMAN ####[facility] Vxzstqkdam9041 [place] [phone]. Anjali Reagan HGB 11.8 g/dl Critically low 14.0-18.0 The [facility] Comment on above: Performed By: #### C CORI ####[facility] Yubdrridly1417 [place] [phone]. Anjali Reagan LYMPHM # 1.03 103/ul Critically low 1.20-3.80 The [facility] Comment on above: Performed By: #### C CORI ####[facility] Rdzvwrkmrg6971 [place] [phone]. Anjali Reagan LYMPHM% 9.0 % Critically low 20.5-60.0 [facility] Comment on above: Performed By: #### C CORI ####[facility] Pyvmsvpnue8666 [place] [phone]. Anjali Reagan MCH 28.0 pg Normal 25.9-34.0 [facility] Comment on above: Performed By: #### C CORI ####[facility] Vzrtlipyzv4614 [place] [address]Dr. Anjali Reagan MCHC 32.6 g/dl Normal 29.9-35.2 [facility] Comment on above: Performed By: #### C CORI ####[facility] Vkvixvsfix5999 [place] [id number]. Anjali Reagan MCV 85.8 fL Normal 80.0-94.0 [facility] Comment on above: Performed By: #### C CORI ####[facility] Njazjgppvf3449 [place] [id number]. Anjali Reagan METAMYELOCYTE # Normal The [facility] Comment on above: Performed By: #### C CORI ####[facility] Omurhapwdg7662 [place] [id number]. Anjali Reagan METAMYELOCYTE % Normal The [facility] Comment on above: Performed By: #### C CORI ####[facility] Rfopbzysbb8434 [place] [phone]. Anjali Reagan MONOM# 1.61 103/ul Critically high 0.30-0.80 [facility] Comment on above: Performed By: #### C CORI ####[facility] Xfehntuawo8362 [place] [id number]. Anjali Reagan MONOM% 14.0 % Critically high 1.7-12.0 The [facility] Comment on above: Performed By: #### C CORI ####[facility] Eumiwrlbvl6970 [place] [phone]. Anjali Reagan MPV 8.9 fL Critically low 9.5-13.5 The [facility] Comment on above: Performed By: #### C BCFIONA ####[facility] Mvyivfjjug2234 [place] [phone]. Anjali Reagan MYELOCYTE # Normal The [facility] Comment on above: Performed By: #### C CORI ####[facility] Jlhesmrzgo0706 [place] [phone]. Anjali Reagan MYELOCYTE % Normal The [facility] Comment on above: Performed By: #### C CORI ####[facility] Uvvduzbfgi3236 [place] [phone]. Anjali Reagan NRBC Normal The [facility] Comment on above: Performed By: #### C CORI ####[facility] Nxvnoofhmh1059 [place] [phone]. Anjali Reagan PLT 263 103/ul Normal 150-450 The [facility] Comment on above: Performed By: #### C CORI ####[facility] Rmndipngwr1336 [place] [phone]. Anjali Reagan RBC 4.22 106/ul Critically low 4.70-6.10 The [facility] Comment on above: Performed By: #### C BCFIONA ####[facility] Dwikwrlymm2585 [place] [phone]. Anjali Reagan RDW 16.0 % Critically high 11.0-15.0 The [facility] Comment on above: Performed By: #### C CORI ####[facility] Ybpbvsrfid8711 [place] [phone]. Anjali Reagan SEG # 8.51 103/ul Critically high 1.40-6.50 The [facility] Comment on above: Performed By: #### C CORI ####[facility] Syaantbjmd5106 [place] [phone]. Anjali Reagna SEG % 74.0 % Normal 43.0-75.0 [facility] Comment on above: Performed By: #### C CORI ####[facility] Vcuxmffqmk4655 [place] [phone]. Binacaramona Reagan WBC 11.5 103/ul Critically high 4.0-11.0 The [facility] Comment on above: Performed By: #### Uzair PERSAUD ####[facility] Raorjjlbbq0099 [place] [address]Dr. Biancaramona Tez CRPon 08-24-2021 CRP 11.6 mg/dL Critically high <=1.0 [facility] Comment on above: Performed By: #### C RP, CMP ####[facility] Cyikfnfeqi8488 [place] [address]Dr. Anjali Reagan PROF 14(COMP METB)on 022 Albumin [Mass/Vol] 3.2 g/dL Critically low 3.4-5.0 [facility] Comment on above: Performed By: #### C RP, CMP ####[facility] Cbgjbayjfi6575 [place] [address]Dr. Anjali Reagan Albumin/Globulin [Mass ratio] 0.7 {ratio} Normal [facility] Comment on above: Performed By: #### C RP, CMP ####[facility] Nvsbaafcnh3071 [place] [address]Dr. Anjali Reagan ALP [Catalytic activity/Vol] 107 U/L Normal 46-116 The [facility] Comment on above: Performed By: #### C RP, CMP ####[facility] Vxyjxdiriz1055 [place] [address]Dr. Anjali Reagan ALT [Catalytic activity/Vol] 57 U/L Normal 16-63 [facility] Comment on above: Performed By: #### C RP, CMP ####[facility] Djtxjnzdbq3342 [place] [address]Dr. Anjali Reagan Anion gap [Moles/Vol] 13.7 mmol/L Normal [facility] Comment on above: Performed By: #### C RP, CMP ####[facility] Etpzdwsqvu4420 [place] [phone]. Anjali Reagan AST [Catalytic activity/Vol] 40 U/L Critically high 15-37 [facility] Comment on above: Performed By: #### C RP, CMP ####[facility] Nnsjmrhogo8744 [place] [phone]. Anjali Reagan Bilirubin [Mass/Vol] 0.6 mg/dL Normal 0.2-1.0 [facility] Comment on above: Performed By: #### C RP, CMP ####[facility] Xedcamfnui3631 [place] [phone]. Anjali Reagan Calcium [Mass/Vol] 9.7 mg/dL Normal 8.5-10.1 [facility] Comment on above: Performed By: #### C RP, CMP ####[facility] Hgjlorhpnq[address] [place], [place] [address]Dr. Anjali Reagan Chloride [Moles/Vol] 98 mmol/L Normal 98-107 [facility] Comment on above: Performed By: #### C RP, CMP ####[facility] Fvfavcsqtc416[address] [place], [place] [address]Dr. Anjali Reagan CO2 [Moles/Vol] 30.0 mmol/L Normal 21.0-32.0 The [facility] Comment on above: Performed By: #### C RP, CMP ####[facility] Uslohovkgo29[address] [place], [place] [address]Dr. Anjali Reagan Creatinine [Mass/Vol] 1.73 mg/dL Critically high 0.70-1.30 [facility] Comment on above: Performed By: #### C RP, CMP ####[facility] Zbcxzufokp[address] [place], [place] [address]Dr. Anjali Reagan EGFR-AF FRENCH 49 mL/min/1.73m2 Critically low >=60 The [facility] Comment on above: Performed By: #### C RP, CMP ####[facility] Pnmgkspilr[address] [place], [place] [address]Dr. Anjali Reagan EGFR-NON AF FRENCH 40 mL/min/1.73m2 Critically low >=60 [facility] Comment on above: Performed By: #### C RP, CMP ####[facility] Aoiwnhwppd9547 [place] [address]Dr. Anjali Reagan Globulin (S) [Mass/Vol] 4.7 g/dL Normal T [facility] Comment on above: Performed By: #### C RP, CMP ####[facility] Qcsbyamklb5426[address] [place], [place] [address]Dr. Anjali Reagan Glucose [Mass/Vol] 92 mg/dL Normal 74-106 [facility] Comment on above: Performed By: #### C RP, CMP ####[facility] Jnsrxmqclv0064[address] [place], [place] [address]Dr. Anjali Reagan Potassium [Moles/Vol] 3.7 mmol/L Normal 3.5-5.1 [facility] Comment on above: Performed By: #### C RP, CMP ####[facility] Tljxyhutvd0044[address] [place], [place] [address]Dr. Biancaramona Reagan Protein [Mass/Vol] 7.9 g/dL Normal 6.4-8.2 [facility] Comment on above: Performed By: #### C RP, CMP ####[facility] Xbcvplegij4077[address] [place], [place] [address]Dr. Anjali Reagan Sodium [Moles/Vol] 138 mmol/L Normal 136-145 [facility] Comment on above: Performed By: #### C RP, CMP ####[facility] Jidvjjcykq101[address] [place], [place] [address]Dr. Anjali Reagan Urea nitrogen [Mass/Vol] 50.0 mg/dL Critically high 7.0-18 .0 [facility] Comment on above: Performed By: #### C RP, CMP ####[facility] Rvxqmfgwby13[address] [place], [place] [address]Dr. Anjali Reagan Urea nitrogen/Creatinine [Mass ratio] 28.9 mg/mg Normal [facility] Comment on above: Performed By: #### C RP, CMP ####[facility] Svkfrgdxgn05[address] [place], [place] [address]Dr. Anjali Reagan [facility] 17 mm/hr Normal <=20 The [facility] Comment on above: Performed By: #### S EDR ####[facility] Fnkmlksmer8883 [place], [place] [address]Lr. Anjali Reagan CBC (INCLUDES DIFF/PLT)on Basophils (Bld) [#/Vol] 0.034 10*3/uL Normal 0-200 [facility] Comment on above: Performed By: #### 6 399, 496, 718, 98699 #### [facility] of [address], [address] [place] [address] Candle Cutter: Juan Meraz MD Basophils/100 WBC (Bld) 0.3 % Normal [facility] Comment on above: Performed By: #### 6 399, 496, 718, [id number] #### [facility] [address], [address] [place] [address] Candle Cutter: Juan Meraz MD Eosinophils (Bld) [#/Vol] 0.023 10*3/uL Normal 15-500 [facility] Comment on above: Performed By: #### 6 399, 496, 718, 32952 #### [facility] of [place] [address] Candle Cutter: Juan Meraz MD Eosinophils/100 WBC (Bld) 0.2 % Normal [facility] Comment on above: Performed By: #### 6 399, 496, 718, 49485 #### [facility] of [place] [address] Candle Cutter: Juan Meraz MD Erythrocyte distribution width (RBC) [Ratio] 15.6 % High 11.0-15.0 [facility] Comment on above: Performed By: #### 6 399, 496, 718, 98493 #### [facility] of [place] [address] Candle Cutter: Juan Meraz MD Hematocrit (Bld) [Volume fraction] 38.9 % Normal 38.5-50.0 [facility] Comment on above: Performed By: #### 6 399, 496, 718, 58578 #### [facility] [place] [address] Candle Cutter: Juan Meraz MD Hemoglobin (Bld) [Mass/Vol] 12.7 g/dL Low 13.2-17.1 [facility] Comment on above: Performed By: #### 6 399, 496, 718, 78829 #### [facility] [place] [address] Candle Cutter: Juan Meraz MD Lymphocytes (Bld) [#/Vol] 0.531 10*3/uL Low 850-3900 [facility] Comment on above: Performed By: #### 6 399, 496, 718, 58028 #### [facility] [place] [address] Candle Cutter: Juan Meraz MD Lymphocytes/100 WBC (Bld) 4.7 % Normal [facility] Comment on above: Performed By: #### 6 399, 496, 718, 84777 #### [facility] [place] [address] Candle Cutter: Juan Meraz MD MCH (RBC) [Entitic mass] 28.2 pg Normal 27.0-33.0 [facility] Comment on above: Performed By: #### 6 399, 496, 718, 49038 #### [facility] [place] [address] Candle Cutter: Juan Meraz MD MCHC (RBC) [Mass/Vol] 32.6 g/dL Normal 32.0-36.[address] [facility] Comment on above: Performed By: #### 6 399, 496, 718, 54676 #### [facility] [place] [address] Candle Cutter: Juan Meraz MD MCV (RBC) [Entitic vol] 86.4 fL Normal 80.0-100.0 [facility] Comment on above: Performed By: #### 6 399, 496, 718, 24930 #### [facility] [place] [address] Candle Cutter: Juan Meraz MD Monocytes (Bld) [#/Vol] 1.119 10*3/uL High 200-950 [facility] Comment on above: Performed By: #### 6 399, 496, 718, 82985 #### [facility] [place] [address] Candle Cutter: Juan Meraz MD Monocytes/100 WBC (Bld) 9.9 % Normal [facility] Comment on above: Performed By: #### 6 399, 496, 718, 17144 #### [facility] [place] [address] Candle Cutter: Juan Meraz MD Neutrophils (Bld) [#/Vol] 9.594 10*3/uL High 0146-8067 [facility] Comment on above: Performed By: #### 6 399, 496, 718, 78732 #### [facility] [place] [address] Candle Cutter: Juan Meraz MD Neutrophils/100 WBC (Bld) 84.9 % Normal [facility] Comment on above: Performed By: #### 6 399, 496, 718, 21103 #### [facility] [place] [address] Candle Cutter: Juan Meraz MD Platelet mean volume (Bld) [Entitic vol] 10.1 fL Normal 7.5-12.5 [facility] Comment on above: Performed By: #### 6 399, 496, 718, 25415 #### [facility] [place] [address] Candle Cutter: Juan Meraz MD Platelets (Bld) [#/Vol] 267 10*3/uL Normal 140-400 [facility] Comment on above: Performed By: #### 6 399, 496, 718, 10181 #### [facility] [address], [address] [place] [address] Candle Cutter: Juan Meraz MD RBC (Bld) [#/Vol] 4.50 10*6/uL Normal 4.20-5.80 [facility] Comment on above: Performed By: #### 6 399, 496, 718, 29212 #### [facility] [address], [address] [place] [address] Candle Cutter: Juan Meraz MD WBC (Bld) [#/Vol] 11.3 10*3/uL High 3.8-10.8 [facility] Comment on above: Performed By: #### 6 399, 496, 718, 79868 #### [facility] [place] [address] Candle Cutter: Juan Meraz MD HEMOGLOBIN A1con 08-23-2021 HEMOGLOBIN [...] Performed By: #### 6 399, 496, 718, 46240 #### [facility] [address], [address] [place] [address] Candle Cutter: Juan Meraz MD PHOSPHATE ( PHOSPHORUS)on 08-23-2021 Phosphate [Mass/Vol] 3.7 mg/dL Normal 2.5-4.5 [facility] Comment on above: Order Comment: PATIE NT UNABLE TO VOID; ADVISED TO RETURN FOR COLLECTION. Performed By: #### 6 399, 496, 718, 63289 #### [facility] [address], [address] [place] [address] Candle Cutter: Juan Meraz MD PTH, INTACT WITHOUT CALCIUMo [...] Performed By: #### 6 399, 496, 718, 98785 #### [facility] [address], [address] [place] [address] Candle Cutter: Juan Meraz MD VITAMIN D,25-OH,TOTAL,IAon 0 08-23-2021 [...] D, (D2,D3), LC/MS/MS is recommended: order code 85566 (patients >2yrs). See Note 1 Note 1 For additional information, please refer to http://education.IIZI group.Zep Solar/faq/MSY492 (This link is being provided for informational/ educational purposes only.) Performed By: #### 6 399, 496, 718, 39833 #### [facility] [address], [address] [place] [address] Candle Cutter: Juan Meraz MD CBC W MANUAL DIFFon 07-06-19 22 ATYPICAL LYMPH # Normal [facility] Comment on above: Performed By: #### C [employer] [facility] [employer] ####[facility] Qfrorddojm7[address] [place] [id number]. Anjali Reagan ATYPICAL LYMPH % Normal [facility] Comment on above: Performed By: #### C CORI ####[facility] [address] [place] [address]Dr. Yilan Reagan BAND # 0.1 103/ul Normal 0.0-0.3 [facility] Comment on above: Performed By: #### C BCFIONA ####[facility] Yehjiggxdj[address] [place] [address]Dr. Yilan Reagan BAND % 1 % Normal 0-5 [facility] Comment on above: Performed By: #### C CORI ####[facility] [address] [place], [place] [address]Dr. Anjali Reagan BASOM # 0.00 103/ul Normal 0.00-0.10 [facility] Comment on above: Performed By: #### C CORI ####[facility] Orbjtziktj[address] [place], [place] [address]Dr. Yiramona Reagan BASOM % 0.0 % Critically low 0.2-2.0 [facility] Comment on above: Performed By: #### C CORI ####[facility] [address]vkwx[address] [place], [place] [address]Dr. Yiramona Reagan BLAST # Normal [facility] Comment on above: Performed By: #### C CORI ####[facility] Jzsmqcnhqz[address] [place] [address]Dr. Anjali Reagan BLAST % Normal [facility] Comment on above: Performed By: #### C CORI ####[facility] Bxrsxtf[address] [place] [address]Dr. Anjali Reagan CORRECTED WBC Normal 4.0-11.0 The [facility] Comment on above: Performed By: #### C CORI ####[facility] Mkyzaclote[address] [place] [address]Dr. Biancalan Reagan EOS # 0.16 103/ul Normal 0.00-0.70 [facility] Comment on above: Performed By: #### C CORI ####[facility] Qwlmsoeagf4660 [place], [place] [address]Oq. Anjali Reagan EOS% 2.0 % Normal 0.9-7.0 [facility] Comment on above: Performed By: #### C CORI ####[facility] Vrbnsecjwe7723 [place], [place] [address]Do. Anjali Reagan HCT 35.3 % Critically low 42.0-54.0 [facility] Comment on above: Performed By: #### C CORI ####[facility] Megtmtykvv4632 [place], [place] [address]Mp. Anjali Reagan HGB 11.4 g/dl Critically low 14.0-18.0 [facility] Comment on above: Performed By: #### C CORI ####[facility] Jvnsqyoqdd3130 [place] [id number]. Anjali Reagan LYMPHM # 0.70 103/ul Critically low 1.20-3.80 The [facility] Comment on above: Performed By: #### C CORI ####[facility] Rcsaiiphkh6687 [place] [id number]. Anjali Reagan LYMPHM% 9.0 % Critically low 20.5-60.0 [facility] Comment on above: Performed By: #### C CORI ####[facility] Jbayzbuhzz3170 [place] [id number]. Anjali Reagan MCH 27.5 pg Normal 25.9-34.0 [facility] Comment on above: Performed By: #### C CORI ####[facility] Pmhiopmoxw44[address] [place] [id number]. Anjali Reagan MCHC 32.3 g/dl Normal 29.9-35.2 [facility] Comment on above: Performed By: #### C CORI ####[facility] Nmmgiogbuq2519 [place] [id number]. Anjali Reagan MCV 85.3 fL Normal 80.0-94.0 [facility] Comment on above: Performed By: #### C CORI ####[facility] Yxirjclanc9591 [place] [id number]. Anjali Reagan METAMYELOCYTE # Normal The [facility] Comment on above: Performed By: #### C CORI ####[facility] Fabxifsxza2314 [place], [place] [address]Ih. Anjali Reagan METAMYELOCYTE % Normal The [facility] Comment on above: Performed By: #### C CORI ####[facility] Lsxyeiyhan1615 [place] [phone]. Anjali Reagan MONOM# 1.09 103/ul Critically high 0.30-0.80 [facility] Comment on above: Performed By: #### C CORI ####[facility] Xqkgukvupq8078 [place] [phone]. Anjali Reagan MONOM% 14.0 % Critically high 1.7-12.0 [facility] Comment on above: Performed By: #### C CORI ####[facility] Jwqxkezxph1786 [place] [phone]. Anjali Reagan MPV 9.6 fL Normal 9.5-13.5 [facility] Comment on above: Performed By: #### C CORI ####[facility] Ojhontoejp4740 [place] [phone]. Anjali Reagan MYELOCYTE # Normal The [facility] Comment on above: Performed By: #### C CORI ####[facility] Vkdrtschzj8124 [place] [phone]. Anjali Reagan MYELOCYTE % Normal [facility] Comment on above: Performed By: #### C CORI ####[facility] Qjbxrmdctc6931 [place] [phone]. Anjali Reagan NRBC Normal [facility] Comment on above: Performed By: #### C CORI ####[facility] Dqhqzukzox8088 [place] [phone]. Anjali Reagan PLT 119 103/ul Critically low 150-450 [facility] Comment on above: Performed By: #### C CORI ####[facility] Rxonlptoka0041 [place] [id number]. Anjali Reagan RBC 4.14 106/ul Critically low 4.70-6.10 [facility] Comment on above: Performed By: #### C BCMAN ####[facility] Zrmdgsvmju6562 [place] [address]Dr. Anjali Reagan RDW 16.1 % Critically high 11.0-15.0 [facility] Comment on above: Performed By: #### C BCMAN ####[facility] Bsefqwihzx0503 [place] [address]Dr. Anjali Reagan SEG # 5.77 103/ul Normal 1.40-6.50 [facility] Comment on above: Performed By: #### C SAUMYAMAN ####[facility] Ypftyqasfw6280 [place] [address]Dr. Anjali Tez SEG % 74.0 % Normal 43.0-75.0 [facility] Comment on above: Performed By: #### C SAUMYAMAN ####[facility] Jyzrqjasst[address] [place], [place] [address]Dr. Anjali Tez WBC 7.8 103/ul Normal 4.0-11.0 [facility] Comment on above: Performed By: #### C CORI ####[facility] Zinujsrcsv[address] [place], [place] [address]Dr. Anjali Tez CRPon 07-05-2021 CRP [Mass/Vol] mg/L Critically high <=1.0 [facility] Comment on above: Performed By: #### C RP, BMP ####[facility] Yplcggdkcy[address] [place], [place] [address]Dr. Biancaramona Reagan PROF CHEM 8 (BAS METB)on Anion gap [Moles/Vol] 10.1 mmol/L Normal [facility] Comment on above: Performed By: #### C RP, BMP ####[facility] Hiiemtobtp[address] [place], [place] [address]Dr. Anjali Tez Calcium [Mass/Vol] 9.6 mg/dL Normal 8.5-10.1 [facility] Comment on above: Performed By: #### C RP, BMP ####[facility] Xdzpsrhl[address] [place], [place] [id number]. Anjali Reagan Chloride [Moles/Vol] 100 mmol/L Normal 98-107 [facility] Comment on above: Performed By: #### C RP, BMP ####[facility] Cvzczetvfi[address] [place], [place] [address]Dr. Anjali Reagan CO2 [Moles/Vol] 30.4 mmol/L Critically high 22.0-30.0 [facility] Comment on above: Performed By: #### C RP, BMP ####[facility] Xufmeflgua[address] [place], [place] [address]Dr. Anjali Reagan Creatinine [Mass/Vol] 1.49 mg/dL Critically high 0.66-1.25 [facility] Comment on above: Performed By: #### C RP, BMP ####[facility] Cymnbdbnat[address] [place], [place] [address]Dr. Anjali Reagan EGFR-AF FRENCH 58 mL/min/1.73m2 Critically low >=60 [facility] Comment on above: Performed By: #### C RP, BMP ####[facility] Rbwppokypm[address] [place], [place] [address]Dr. Anjali Reagan EGFR-NON AF FRENCH 48 mL/min/1.73m2 Critically low >=60 [facility] Comment on above: Performed By: #### C RP, BMP ####[facility] Esqrxeooft8714 [place] [address]Dr. Anjali Reagan Glucose [Mass/Vol] 191 mg/dL Critically high 74-106 [facility] Comment on above: Performed By: #### C RP, BMP ####[facility] Bswoxzpfuz7107 [place] [address]Dr. Anjali Reaagn Potassium [Moles/Vol] 4.5 mmol/L Normal 3.4-5.0 [facility] Comment on above: Performed By: #### C RP, BMP ####[facility] Bwbmlgbpff[address] [place], [place] [address]Dr. Anjali Reagan Sodium [Moles/Vol] 136 mmol/L Critically low 137-145 [facility] Comment on above: Performed By: #### C RP, BMP ####[facility] Ddfddpazlx0395 [place], [place] [address]Sh. Anjali Reagan Urea nitrogen [Mass/Vol] 33.0 mg/dL Critically high 7.0-18 .0 [facility] Comment on above: Performed By: #### C RP, BMP ####[facility] Ftanxqsdvq8908 [place] [phone]. Biancaramona Tez Urea nitrogen/Creatinine [Mass ratio] 22.1 mg/mg [facility] Comment on above: Performed By: #### C RP, BMP ####[facility] Gcyzgerwur3092 [place] [phone]. Biancaramona Tez SED RATE WESTERGRENon 2021 SED RATE 26 mm/hr Critically high <=20 [facility] Comment on above: Performed By: #### S EDR ####[facility] Pmphqjqfhu8864 [place] [phone]. Biancaramona Reagan XR ANKLE RT MIN 3 VIEWSon XR ANKLE RT MIN 3 VIEWS Normal [facility] CT ANKLE RT WO CONon 022 CT ANKLE RT WO CON Normal [facility] CULTURE OTHERon 05-19-2021 CULTURE OTHER Normal [facility] Comment on above: Performed By: #### O THCX ####[facility] W[address]ju[address] [place], [place] [id number]. Anjali Reagan CULTURE ANAEROBICon 05-16-19 22 CULTURE ANAEROBIC Specimen Comments: RIGHT FOOT ABSCESS Culture Observations: NO GROWTH OF ANAEROBES AT 72 HOURS. Normal [facility] Comment on above: Performed By: #### A NACX ####[facility] Axkmlpsldp6270 [place] [phone]. Biancaramona Tez GRAM STAINon 05-16-2021 DIPHTHEROIDS [facility] Comment on above: Performed By: #### G STAIN ####[facility] U[address]iggf[address] [place], [place] [id number]. Anjali Reagan EPITHELIALS [facility] Comment on above: Performed By: #### G STAIN ####[facility] Fesvvxsbic6006 [place] [address]Dr. Anjali Reagan FUNGAL ELEMENTS Normal The [facility] Comment on above: Performed By: #### G STAIN ####[facility] Lfvlyvqcgd8672 [place] [address]Dr. Anjali Reagan GRAM NEG BACILLI MANY Normal [facility] Comment on above: Performed By: #### G STAIN ####[facility] Eeqyzbjgpe2966 [place] [address]Dr. Anjali Reagan GRAM NEG DIPPLOCOCCI Normal [facility] Comment on above: Performed By: #### G STAIN ####[facility] Panqojaoue[address] [place], [place] [address]Dr. Anjali Reagan GRAM POS BACILLI Normal [facility] Comment on above: Performed By: #### G STAIN ####[facility] Ugacphysgq64[address] [place], [place] [address]Dr. Anjali Reagan GRAM POSITIVE COCCI Normal The [facility] Comment on above: Performed By: #### G STAIN ####[facility] Y[address]ijfzmzvf[address] [place], [place] [address]Dr. Anjali Reagan GRAM STAIN SOURCE RIGHT FOOT Normal [facility] Comment on above: Performed By: #### G STAIN ####[facility] [address]aalbarqwk[address] [place], [place] [address]Dr. Anjali Reagan GS_DIPTH Normal [facility] Comment on above: Performed By: #### G STAIN ####[facility] Subtqlixfw[address] [place], [place] [address]Dr. Anjali Reagan WBC MANY Normal [facility] Comment on above: Performed By: #### G STAIN ####[facility] Zdrqsgntkt[address] [place], [place] [address]Dr. Anjali Reagan XR ANKLE RT MIN 3 VIEWSon XR ANKLE RT MIN 3 VIEWS Normal [facility] COMPREHENSIVE METABOLIC PANE Ray 04-16-2021 Albumin [Mass/Vol] 4.6 g/dL Normal 3.6-5.1 [facility] Comment on above: Performed By: #### 7 600, 496, 93149 #### [facility] [address], [address] [place] [address] Candle Cutter: Juan Meraz MD Albumin/Globulin [Mass ratio] 1.7 {ratio} Normal 1.0-2.5 [facility] Comment on above: Performed By: #### 7 600, 496, 59910 #### [facility] [place] [address] Candle Cutter: Juan Meraz MD ALP [Catalytic activity/Vol] 119 U/L Normal 35-144 [facility] Comment on above: Performed By: #### 7 600, 496, 27255 #### [facility] of [place] [address] Candle Cutter: Juan Meraz MD ALT [Catalytic activity/Vol] 19 U/L Normal 9-46 [facility] Comment on above: Performed By: #### 7 600, 496, 12653 #### [facility] [place] [address] Candle Cutter: Juan Meraz MD AST [Catalytic activity/Vol] 20 U/L Normal 10-35 [facility] Comment on above: Performed By: #### 7 600, 496, 31932 #### [facility] [place] [address] Candle Cutter: Juan Meraz MD Bilirubin [Mass/Vol] 0.6 mg/dL Normal 0.2-1.2 [facility] Comment on above: Performed By: #### 7 600, 496, 93545 #### [facility] [place] [address] Candle Cutter: Juan Meraz MD Calcium [Mass/Vol] 9.9 mg/dL Normal 8.6-10.3 [facility] Comment on above: Performed By: #### 7 600, 496, 72524 #### [facility] [place] [address] Candle Cutter: Juan Meraz MD Chloride [Moles/Vol] 102 mmol/L Normal 98-110 [facility] Comment on above: Performed By: #### 7 600, 496, 64182 #### [facility] [place] [address] Candle Cutter: Juan Meraz MD CO2 [Moles/Vol] 28 mmol/L Normal 20-32 [facility] Comment on above: Performed By: #### 7 600, 496, 92616 #### [facility] [place] [address] Candle Cutter: Juan Meraz MD Creatinine [Mass/Vol] 1.59 mg/dL High 0.70-1.[address] [facility] Comment on above: Result Comment: For patients >49 years of age, the reference limit for Creatinine is approximately 13% higher for people identified as -Malagasy. Performed By: #### 7 600, 496, 01946 #### [facility] [address], [address] [place] [address] Candle Cutter: Juan Meraz MD eGFR NON-AFR. FRENCH 46 mL/min/1.73m2 Low > OR = 60 [facility] Comment on above: Performed By: #### 7 600, 496, 21448 #### [facility] [place] [address] Candle Cutter: Juan Meraz MD GFR/1.73 sq M.predicted among blacks MDRD (S/P/Bld) [Vol rate/Area] 53 mL/min/{1.73_m2} Low > OR = 60 [facility] Comment on above: Performed By: #### 7 600, 496, 26195 #### [facility] of [address], [address] [place] [address] Candle Cutter: Juan Meraz MD Globulin (S) [Mass/Vol] 2.7 g/dL Normal 1.9-3.7 [facility] Comment on above: Performed By: #### 7 600, 496, 51225 #### [facility] [place] [address] Candle Cutter: Juan Mreaz MD Glucose [Mass/Vol] 176 mg/dL High 65-139 [facility] Comment on above: Result Comment: Non-fasting reference interval For someone without known diabetes, a glucose value >125 mg/dL indicates that they may have diabetes and this should be confirmed with a follow-up test. Performed By: #### 7 600, 496, 62672 #### [facility] [place] [address] Candle Cutter: Juan Meraz MD Potassium [Moles/Vol] 4.2 mmol/L Normal 3.5-5.[address] [facility] Comment on above: Performed By: #### 7 600, 496, 56888 #### [facility] [place] [address] Candle Cutter: Juan Meraz MD Protein [Mass/Vol] 7.3 g/dL Normal 6.1-8.1 [facility] Comment on above: Performed By: #### 7 600, 496, 81550 #### [facility] [place] [address] Candle Cutter: Juan Meraz MD Sodium [Moles/Vol] 138 mmol/L Normal 135-146 [facility] Comment on above: Performed By: #### 7 600, 496, 21705 #### [facility] [place] [address] Candle Cutter: Juan Meraz MD Urea nitrogen [Mass/Vol] 48 mg/dL High - [facility] Comment on above: Performed By: #### 7 600, 496, 79124 #### [facility] [place] [address] Candle Cutter: Juan Meraz MD Urea nitrogen/Creatinine [Mass ratio] 30 mg/mg High - [facility] Comment on above: Performed By: #### 7 600, 496, 91867 #### [facility] [place] [address] Candle Cutter: Juan Meraz MD HEMOGLOBIN A1con 04-16-2021 HEMOGLOBIN [...] 1 0165, 496, 905 #### [facility] [address] [place] [address] Candle Cutter: Juan Meraz MD LIPID PANEL, STANDARDon 04-02 Cholesterol [Mass/Vol] 108 mg/dL Normal <200 [facility] Comment on above: Order Comment: FASTI NG:NO FASTING: NO Performed By: #### 7 600, 496, 02693 #### [facility] [address], [address] [place] [address] Candle Cutter: Juan Meraz MD Cholesterol in HDL [Mass/Vol] 47 mg/dL Normal > OR = 40 [facility] Comment on above: Order Comment: FASTI NG:NO FASTING: NO Performed By: #### 7 600, 496, 37585 #### [facility] [address], [address] [place] [address] Candle Cutter: Juan Meraz MD Cholesterol in LDL [Mass/Vol] [...] LDL-C. Cam[place] BAH et al. TABITHA. 2013;310(19): 6725-0016 (http://education.IIZI group.[employer]ep Solar/faq/PLU288) Performed By: #### 7 600, 496, 42767 #### [facility] [address], [address] [place] [address] Candle Cutter: Juan Meraz MD Cholesterol.total/Choles terol in HDL [Mass ratio] 2.3 {ratio} Normal <5.0 [facility] Comment on above: Order Comment: FASTI NG:NO FASTING: NO Performed By: #### 7 600, 496, 03181 #### [facility] [address], [address] [place] [address] Candle Cutter: Juan Meraz MD NON HDL CHOLESTEROL 61 mg/dL (calc) Normal <130 [facility] Comment on above: Order Comment: FASTI NG:NO FASTING: NO Result Comment: For patients with diabetes plus 1 major ASCVD risk factor, treating to a non-HDL-C goal of <100 mg/dL (LDL-C of <70 mg/dL) is considered a therapeutic option. Performed By: #### 7 600, 496, 72093 #### [facility] [address], [address] [place] [address] Candle Cutter: Juan Meraz MD Triglyceride [Mass/Vol] 102 mg/dL Normal <150 [facility] Comment on above: Order Comment: FASTI NG:NO FASTING: NO Performed By: #### 7 [phone], [phone], [phone] #### [facility] [address], [address] [place] [address] Candle Cutter: Juan Meraz MD CT ANKLE RT WO CONon 022 CT ANKLE RT WO CON Normal [facility] XR ANKLE RT MIN 3 VIEWSon XR ANKLE RT MIN 3 VIEWS Normal T [facility] ACID FAST SMEAR AND CXon Acid Fast Culture Negative Normal [facility] Comment on above: Result Comment: No a rj fast bacilli isolated after 6 weeks. Performed By: #### A FB ####[facility] Dskkajewmw1913 [place] [phone]. Biancaramona Reagan Acid Fast Smear Negative Normal [facility] Comment on above: Performed By: #### A FB ####[facility] Ipicjdv[address] [place], [place] [id number]. Anjali [employer] Specimen Processing Direct Inoculation Normal [facility] Comment on above: Performed By: #### A FB ####[facility] Mlcljwnpgh[address] [place], [place] [id number]. Anjali Reagan ACID FAST SMEAR AND CXon Acid Fast Culture Negative Normal [facility] Comment on above: Result Comment: No a rj fast bacilli isolated after 6 weeks. Performed By: #### A FB ####[facility] Mnzlklkrpb[address] [place], [place] [address]Dr. Biancaramona Reagan Acid Fast Smear Negative Normal [facility] Comment on above: Performed By: #### A FB ####[facility] Cbntkvxyhg67[address] [place], [place] [address]Dr. Anjali [employer] Specimen Processing Tissue Grinding [facility] Comment on above: Performed By: #### A FB ####[facility] Lldtyalvgb[address] [place], [place] [address]Dr. Anjali [employer] Specimen Processing Direct Inoculation [facility] Comment on above: Performed By: #### A FB ####[facility] Mtptvgumlx[address] [place], [place] [address]Dr. Anjali Reagan FUNGAL CULTUREon 03-15-2021 Fungus (Mycology) Culture Final report [facility] Comment on above: Performed By: #### C XFUN ####[facility] Wrucmvwacl[address] [place], [place] [address]Dr. Anjali Reagan Fungus Stain Final report Normal [facility] Comment on above: Performed By: #### C XFUN ####[facility] Joghuogxyc[address] [place], [place] [address]Dr. Anjali Reagan Result 1 Comment Normal [facility] Comment on above: Result Comment: MIRIAN/ Calcofluor preparation: no fungus observed. Performed By: #### C XFUN ####[facility] Ongzvxhkxs0847 [place], [place] [address]Vu. Anjali Reagan Result Comment: No y east or mold isolated after 4 weeks. FUNGAL CULTUREon 03-09-2021 Fungus (Mycology) Culture Final report Normal [facility] Comment on above: Performed By: #### C XFUN ####[facility] Ummlbnbwch7505 [place], [place] [address]Yj. Biancaramona Reagan Fungus Stain Final report Normal [facility] Comment on above: Performed By: #### C XFUN ####[facility] Udjchlnqil3999 [place], [place] [address]Bl. Biancaramona Reagan Result 1 Comment Normal [facility] Comment on above: Result Comment: MIRIAN/ Calcofluor preparation: no fungus observed. Performed By: #### C XFUN ####[facility] Hihngjvryc1924 [place], [place] [address]Lo. Anjali Reagan Result Comment: No y east or mold isolated after 4 weeks. XR ANKLE RT MIN 3 VIEWSon XR ANKLE RT MIN 3 VIEWS Normal T he [facility] Otolaryngology Office/Clinic Noteon 02-28-2021 Otolaryngology Office/Clinic [...] time. They were unable to travel to [place] as he required another right ankle surgery. [...] Dr. Freed. Previous pathology by physician in [place] about 1 year ago. PMHx of multiple [...] postauricular m (more content not included)... Normal [facility] CBC W MANUAL DIFFon 02-13-20 21 ATYPICAL LYMPH # Normal [facility] Comment on above: Performed By: #### C CORI ####[facility] Ejnkspxair4756 [place], [place] [address]Tm. Anjali Reagan ATYPICAL LYMPH % Normal [facility] Comment on above: Performed By: #### C CORI ####[facility] Pzezlpxuax1647 [place], [place] [address]GkVeronica Reagan BAND # 0.3 103/ul Normal 0.0-0.3 [facility] Comment on above: Performed By: #### C CORI ####[facility] Btzspacwfy5442 [place] [phone]. Anjali Reagan BAND % 4 % Normal 0-5 [facility] Comment on above: Performed By: #### C BCFIONA ####[facility] Bjedklexte5681 [place] [phone]. Anjali Reagan BASOM # 0.00 103/ul Normal 0.00-0.10 [facility] Comment on above: Performed By: #### C BCFIONA ####[facility] Htbosrhjig8780 [place] [address]Dr. Anjali Reagan BASOM % 0.0 % Critically low 0.2-2.0 [facility] Comment on above: Performed By: #### C BCFIONA ####[facility] Ljkcrecnze6[address] [place], [place] [address]Dr. Anjali Reagan BLAST # Normal [facility] Comment on above: Performed By: #### C CORI ####[facility] Yvchlmgsgq9[address] [place], [place] [address]Dr. Yiramona Reagan BLAST % Normal [facility] Comment on above: Performed By: #### C CORI ####[facility] Ejshvtpmyk08[address] [place], [place] [address]Dr. Anjali Reagan CORRECTED WBC Normal 4.0-11.0 The [facility] Comment on above: Performed By: #### C CORI ####[facility] Mramyvjiwn1818 [place] [address]Dr. Anjali Reagan EOS # 0.28 103/ul Normal 0.00-0.70 [facility] Comment on above: Performed By: #### C BCFIONA ####[facility] Ttvqwbhaqs8993 [place] [address]Dr. Anjali Reagan EOS% 4.0 % Normal 0.9-7.0 [facility] Comment on above: Performed By: #### C BCFIONA ####[facility] Zfhvuyaydh9138 [place] [address]Dr. Anjali Reagan HCT 28.5 % Critically low 42.0-54.0 [facility] Comment on above: Performed By: #### C BCFIONA ####[facility] Zkbynjtymi2815 [place], [place] [address]Uk. Anjali Reagan HGB 8.6 g/dl Critically low 14.0-18.0 [facility] Comment on above: Performed By: #### C CORI ####[facility] Paxdeygtun1515 [place], [place] [address]Bm. Anjali Reagan HYPOCHROMASIA 3+ Normal [facility] Comment on above: Performed By: #### C CORI ####[facility] Arsacmcyvd5582 [place], [place] [address]Zu. Anjali Reagan LYMPHM # 0.57 103/ul Critically low 1.20-3.80 The [facility] Comment on above: Performed By: #### C CORI ####[facility] Svhlyqbolf1040 [place] [phone]. Anjali Reagan LYMPHM% 8.0 % Critically low 20.5-60.0 [facility] Comment on above: Performed By: #### C CORI ####[facility] Qtpsalzpxo5735 [place] [phone]. Anjali Reagan MCH 25.4 pg Critically low 25.9-34.0 [facility] Comment on above: Performed By: #### C CORI ####[facility] Mzmhpzeypz5807 [place] [phone]. Anjali Reagan MCHC 30.2 g/dl Normal 29.9-35.2 [facility] Comment on above: Performed By: #### C CORI ####[facility] Cvhffpiqvs0806 [place], [place] [address]Mb. Anjali Reagan MCV 84.1 fL Normal 80.0-94.0 [facility] Comment on above: Performed By: #### C CORI ####[facility] Iqiweqnclk6952 [place] [phone]. Anjali Reagan METAMYELOCYTE # Normal The [facility] Comment on above: Performed By: #### C CORI ####[facility] Ifmypagxqg0108 [place] [phone]. Anjali Reagan METAMYELOCYTE % Normal [facility] Comment on above: Performed By: #### C CORI ####[facility] Tepfvmvsex5231 [place] [phone]. Anjali Reagan MICROCYTOSIS 2+ Normal [facility] Comment on above: Performed By: #### C CORI ####[facility] Jgzmfhxrvy9765 [place], [place] [address]Wr. Anjali Reagan MONOM# 0.14 103/ul Critically low 0.30-0.80 [facility] Comment on above: Performed By: #### C CORI ####[facility] Beueygdexk6412 [place], [place] [address]En. Anjali Reagan MONOM% 2.0 % Normal 1.7-12.0 [facility] Comment on above: Performed By: #### C CORI ####[facility] Wcntvaykqg2626 [place] [phone]. Anjali Reagan MPV 9.3 fL Critically low 9.5-13.5 [facility] Comment on above: Performed By: #### C CORI ####[facility] Pzhthmrlen1728 [place] [phone]. Anjali Reagan MYELOCYTE # Normal [facility] Comment on above: Performed By: #### C CORI ####[facility] Hdbvsxnirq6243 [place], [place] [address]Yg. Anjali Reagan MYELOCYTE % Normal [facility] Comment on above: Performed By: #### C CORI ####[facility] Otdcomjnxp4264 [place] [phone]. Anjali Reagan NRBC 1 Normal [facility] Comment on above: Performed By: #### C CORI ####[facility] Nawszyupkt9044 [place] [phone]. Anjali Reagan PLT 186 103/ul Normal 150-450 [facility] Comment on above: Performed By: #### C CORI ####[facility] Cjsbwugpiv7663 [place] [phone]. Anjali Reagan RBC 3.39 106/ul Critically low 4.70-6.10 [facility] Comment on above: Performed By: #### C BCMAN ####[facility] Hnhlzgiewl8290 [place] [phone] Reagan RDW 18.8 % Critically high 11.0-15.0 [facility] Comment on above: Performed By: #### C BCMAN ####[facility] Iscdklzajj2739 [place] [address]DrVeronica Reagan SEG # 5.82 103/ul Normal 1.40-6.50 [facility] Comment on above: Performed By: #### C BCMAN ####[facility] Exdtwebale2503 [place] [address]DrVeronica Reagan SEG % 82.0 % Critically high 43.0-75.0 [facility] Comment on above: Performed By: #### C BCMAN ####[facility] Ahfzydkqxn8434 [place] [address]DrVeronica Reagan WBC 7.1 103/ul Normal 4.0-11.0 [facility] Comment on above: Performed By: #### C CORI ####[facility] Xeyznethmm0487 [place] [address]Dr. Anjali Reagan POINT OF CARE GLUCOSEon 01-31 Glucose [Mass/Vol] 175 mg/dL Critically high 74-[address] [facility] Comment on above: Performed By: #### P OCGLUC ####[facility] Jkrstrvfag2717 [place] [address]Dr. Anjali Reagan PROF 14(COMP METB)on 021 Albumin [Mass/Vol] 2.4 g/dL Critically low 3.5-5.0 [facility] Comment on above: Performed By: #### C MP ####[facility] Cnemigqpgm6943 [place] [address]DrVeronica Reagan Albumin/Globulin [Mass ratio] 0.6 {ratio} Normal [facility] Comment on above: Performed By: #### C MP ####[facility] Zjktyftbly3239 [place] [address]Dr. Anjali Reagan ALP [Catalytic activity/Vol] 93 U/L Normal 38-126 [facility] Comment on above: Performed By: #### C MP ####[facility] Sxrkxaashs5639 [place] [address]Dr. Anjali Tez ALT [Catalytic activity/Vol] 18 U/L Critically low 21-72 [facility] Comment on above: Performed By: #### C MP ####[facility] Uvkhocihyq61[address] [place], [place] [address]Dr. Anjali Tez Anion gap [Moles/Vol] 12.5 mmol/L Normal Th [facility] Comment on above: Performed By: #### C MP ####[facility] Xkbmginjdm467[address] [place], [place] [address]Dr. Anjali Tez AST [Catalytic activity/Vol] 30 U/L Normal 17-59 [facility] Comment on above: Performed By: #### C MP ####[facility] Qxnjwunzup7717[address] [place], [place] [address]Dr. Anjali Tez Bilirubin [Mass/Vol] 0.5 mg/dL Normal 0.2-1.3 [facility] Comment on above: Performed By: #### C MP ####[facility] Jfxjjajblb224[address] [place], [place] [address]Dr. Anjali Tez Calcium [Mass/Vol] 8.5 mg/dL Normal 8.4-10.2 [facility] Comment on above: Performed By: #### C MP ####[facility] Ikcumlkash199[address] [place], [place] [address]Dr. Anjali Tez Chloride [Moles/Vol] 103 mmol/L Normal 98-107 [facility] Comment on above: Performed By: #### C MP ####[facility] Qlbvnltlfq299[address] [place], [place] [address]Dr. Anjali Reagan CO2 [Moles/Vol] 25.8 mmol/L Normal 22.0-30.0 [facility] Comment on above: Performed By: #### C MP ####[facility] Gyabnwyzna101[address] [place], [place] [address]Dr. Biancaramona Reagan Creatinine [Mass/Vol] 1.09 mg/dL Normal 0.66-1.25 [facility] Comment on above: Performed By: #### C MP ####[facility] Eoafqasnkt7085 [place] [address]Dr. Anjali Reagan EGFR-AF FRENCH >60 Normal >=60 [facility] Comment on above: Performed By: #### C MP ####[facility] Nquhmhftml1333 [place] [phone]. Anjali Reagan EGFR-NON AF FRENCH >60 Normal >=60 [facility] Comment on above: Performed By: #### C MP ####[facility] Hbmvxkgclv6931 [place] [address]Dr. Anjali Reagan Globulin (S) [Mass/Vol] 3.7 g/dL Normal [facility] Comment on above: Performed By: #### C MP ####[facility] Xgaombqbut6347 [place] [address]Dr. Anjali Reagan Glucose [Mass/Vol] 165 mg/dL Critically high 74-106 [facility] Comment on above: Performed By: #### C MP ####[facility] Kpgmrgmnws7648 [place] [address]Dr. Anjali Reagan Potassium [Moles/Vol] 4.3 mmol/L Normal 3.4-5.0 [facility] Comment on above: Performed By: #### C MP ####[facility] Xdzbwiyhqo3763 [place] [address]Dr. Anjali Reagan Protein [Mass/Vol] 6.1 g/dL Normal 6.1-8.2 [facility] Comment on above: Performed By: #### C MP ####[facility] Serojwafqe9825 [place] [address]Dr. Anjali Reagan Sodium [Moles/Vol] 137 mmol/L Normal 137-145 [facility] Comment on above: Performed By: #### C MP ####[facility] Valuyqvcoe4671 [place] [address]Dr. Anjali Reagan Urea nitrogen [Mass/Vol] 24.0 mg/dL Critically high 9.0-20 .0 [facility] Comment on above: Performed By: #### C MP ####[facility] Qqaycccpdf4551 [place] [address]Dr. Anjali Reagan Urea nitrogen/Creatinine [Mass ratio] 22.0 mg/mg Normal [facility] Comment on above: Performed By: #### C MP ####[facility] Ifxkoyeghd3460[address] [place], [place] [address]Dr. Anjali Reagan ALBUMINon 02-11-2021 Albumin [Mass/Vol] 2.8 g/dL Critically low 3.5-5.0 Th [facility] Comment on above: Performed By: #### P REALB, ALB ####[facility] Daofvurcrq0966[address] [place], [place] [address]Dr. Anjali Reagan CBC AUTO DIFFon 02-11-2021 BASO # 0.0 103/ul Normal 0.0-0.1 [facility] Comment on above: Performed By: #### C BC ####[facility] Yhlwaramzo04[address] [place], [place] [address]Dr. Anjali Tez Basophils/100 WBC (Bld) 0.5 % Normal 0.2-2.0 [facility] Comment on above: Performed By: #### C BC ####[facility] Khpfdrswjq3658[address] [place], [place] [address]Dr. Anjali Reagan EO # 0.5 103/ul Normal 0.0-0.7 [facility] Comment on above: Performed By: #### C BC ####[facility] Mikkdzgghv7317[address] [place], [place] [address]Dr. Anjali Tez Eosinophils/100 WBC (Bld) 7.4 % Critically high 0.9-7.0 [facility] Comment on above: Performed By: #### C BC ####[facility] Fshsnlosmn2014[address] [place], [place] [address]Dr. Anjali Reagan Erythrocyte distribution width (RBC) [Ratio] 18.7 % Critically high 11.0-15.0 [facility] Comment on above: Performed By: #### C BC ####[facility] Pwxckyqrsm[address] [place] [address]. Anjali Reagan Hematocrit (Bld) [Volume fraction] 30.7 % Critically low 42.0-54.0 [facility] Comment on above: Performed By: #### C BC ####[facility] Kqvniixwdt4038 [place] [address]Dr. Anjali Tez Hemoglobin (Bld) [Mass/Vol] 9.5 g/dL Critically low 14.0-18.0 [facility] Comment on above: Performed By: #### C BC ####[facility] Puefvhzopa3062 [place] [address]Dr. Anjali Reagan IG # 0.05 10e3/ul Critically high 0.00-0.03 [facility] Comment on above: Performed By: #### C BC ####[facility] Erktntuqcp4327 [place] [address]Dr. Anjali Reagan IG % 0.8 % Critically high 0.0-0.5 The [facility] Comment on above: Performed By: #### C BC ####[facility] Ffmqwouqxe9583 [place] [address]DrVeronica Reagan LYMPH # 0.6 103/ul Critically low 1.2-3.8 [facility] Comment on above: Performed By: #### C BC ####[facility] Thgcplrsuh4742 [place] [address]DrVeronica Reagan Lymphocytes/100 WBC (Bld) 8.5 % Critically low 20.5-60.0 [facility] Comment on above: Performed By: #### C BC ####[facility] Apicrrikec8813 [place] [address]DrVeronica Reagan MANUAL DIFF REQ NO Normal The [facility] Comment on above: Performed By: #### C BC ####[facility] Ijyrkbxkjs9408 [place] [address]DrVeronica Biancaramona Reagan MCH (RBC) [Entitic mass] 25.3 pg Critically low 25.9-34 .0 [facility] Comment on above: Performed By: #### C BC ####[facility] Hqpqcqaptt05[address] [place], [place] [address]Dr. Anjali Reagan MCHC (RBC) [Mass/Vol] 30.9 g/dL Normal 29.9-35.2 [facility] Comment on above: Performed By: #### C BC ####[facility] Ldjyamydlt2590 [place] [phone]. Anjali Reagan MCV (RBC) [Entitic vol] 81.6 fL Normal 80.0-94.0 [facility] Comment on above: Performed By: #### C BC ####[facility] Zctufjzmow5308 [place] [phone]. Anjali Tez MONO # 0.8 103/ul Normal 0.3-0.8 [facility] Comment on above: Performed By: #### C BC ####[facility] Lnmsyujoti0617 [place] [address]Dr. Anjali Tez Monocytes/100 WBC (Bld) 12.2 % Critically high 1.7-12. 0 [facility] Comment on above: Performed By: #### C BC ####[facility] Vnwekkrnss3278 [place] [phone]. Anjali Reagan NEUT # 4.6 103/ul Normal 1.4-6.5 [facility] Comment on above: Performed By: #### C BC ####[facility] Lnuwatohfa4378 [place] [phone]. Anjali Tez Neutrophils/100 WBC (Bld) 70.6 % Normal 43.0-75.0 [facility] Comment on above: Performed By: #### C BC ####[facility] Ggtxnoujpj3004 [place] [phone]. Anjali Reagan Platelet mean volume (Bld) [Entitic vol] 9.6 fL Normal 9.5-13.5 [facility] Comment on above: Performed By: #### C BC ####[facility] Yvfnagfinj3521 [place] [phone]. Anjali Tez PLT 205 103/ul Normal 150-450 [facility] Comment on above: Performed By: #### C BC ####[facility] Xpojtfjkib3535 [place] [phone]. Anjali Reagan RBC 3.76 106/ul Critically low 4.70-6.10 The [facility] Comment on above: Performed By: #### C BC ####[facility] Dhdomftkcj5477 [place] [phone]. Anjali Reagan WBC 6.5 103/ul Normal 4.0-11.0 [facility] Comment on above: Performed By: #### C BC ####[facility] Rvyzndwbeo9[address] [place], [place] [address]Dr. Anjali Reagan CULTURE ANAEROBICon 02-12-20 CULTURE ANAEROBIC Specimen Comments: RIGHT ANKLE JOINT Culture Observations: NO GROWTH AT 72 HRS Normal [facility] Comment on above: Performed By: #### A NACX ####[facility] Ofeawvorvl9411[address] [place], [place] [address]Dr. Anjali Reagan CULTURE OTHERon 02-11-2021 CULTURE OTHER Specimen Comments: RIGHT ANKLE JOINT Culture Observations: NO GROWTH AT 72 HRS Normal [facility] Comment on above: Performed By: #### O THCX ####[facility] Ejnbzownlj6169[address] [place], [place] [address]Dr. Anjali Reagan GRAM STAINon 02-11-2021 COMMENTS NO ORGANISMS OBSERVED Normal [facility] Comment on above: Performed By: #### G STAIN ####[facility] Yrnqvmpreo7212[address] [place], [place] [address]Dr. Biancaramona Tez DIPHTHEROIDS Normal [facility] Comment on above: Performed By: #### G STAIN ####[facility] Zrpglsneki3414[address] [place], [place] [address]Dr. Anjali Reagan EPITHELIALS Normal [facility] Comment on above: Performed By: #### G STAIN ####[facility] Auxmucvgpr7080[address] [place], [place] [address]Dr. Anjali Reagan FUNGAL ELEMENTS Normal The [facility] Comment on above: Performed By: #### G STAIN ####[facility] Nelziivvpe8627[address] [place], [place] [address]Dr. Anjali Reagan GRAM NEG BACILLI Normal [facility] Comment on above: Performed By: #### G STAIN ####[facility] Hkgrupwcge9341 [place] [address]Dr. Anjali Reagan GRAM NEG DIPPLOCOCCI Normal [facility] Comment on above: Performed By: #### G STAIN ####[facility] [address] [place] [address]Dr. Biancaramona Tez GRAM POS BACILLI Normal [facility] Comment on above: Performed By: #### G STAIN ####[facility] Ngldsdhoax896[address] [place], [place] [address]Dr. Anjali Reagan GRAM POSITIVE COCCI Normal [facility] Comment on above: Performed By: #### G STAIN ####[facility] Yqyqfvtquw1940[address] [place], [place] [address]Dr. Anajli Reagan GRAM STAIN SOURCE Right ankle joint Normal [facility] Comment on above: Performed By: #### G STAIN ####[facility] Lorjbzvypk2566[address] [place], [place] [address]Dr. Anjali Reagan GS_DIPTH Normal [facility] Comment on above: Performed By: #### G STAIN ####[facility] Nphmfswmqs3155[address] [place], [place] [address]Dr. Anjali Reagan WBC FEW Normal [facility] Comment on above: Performed By: #### G STAIN ####[facility] Vpqqeezkhx328250 [address] [place], [place] [address]Dr. Biancaramona Reagan POINT OF CARE GLUCOSEon 01-31 Glucose [Mass/Vol] 196 mg/dL Critically high 74-106 [facility] Comment on above: Performed By: #### P OCGLUC ####[facility] Lquweiwdad188550 [address] [place], [place] [address]Dr. Anjali Reagan Glucose [Mass/Vol] 176 mg/dL Critically high 74-106 [facility] Comment on above: Performed By: #### P OCGLUC ####[facility] Qnubaeagmh8266[address] [place], [place] [address]Dr. Anjali Reagan PREALBUMINon 02-11-2021 Prealbumin [Mass/Vol] 17.8 mg/dL Normal 17.6-36.0 [facility] Comment on above: Performed By: #### P REALB, ALB ####[facility] Eosazrnoar[address] [place] [address]Dr. Anjali Reagan PROF 14(COMP METB)on 021 Albumin [Mass/Vol] 2.6 g/dL Critically low 3.5-5.0 [facility] Comment on above: Performed By: #### B MP, CMP ####[facility] Oflrqejare44[address] [place] [address]Dr. Anjali Reagan Albumin/Globulin [Mass ratio] 0.6 {ratio} Normal [facility] Comment on above: Performed By: #### B MP, CMP ####[facility] Hkskxtbnql1998[address] [place], [place] [address]Dr. Anjali Reagan ALP [Catalytic activity/Vol] 104 U/L Normal 38-126 [facility] Comment on above: Performed By: #### B MP, CMP ####[facility] Vokgyqnwzb032850 [address] [place], [place] [address]Dr. Anjali Reagan ALT [Catalytic activity/Vol] 17 U/L Critically low 21-72 [facility] Comment on above: Performed By: #### B MP, CMP ####[facility] Pyxjmboyzr832[address] [place], [place] [address]Dr. Anjali Reagan AST [Catalytic activity/Vol] 26 U/L Normal 17-59 [facility] Comment on above: Performed By: #### B MP, CMP ####[facility] Equrnrixwj669750 [address] [place], [place] [address]Dr. Anjali Reagan Bilirubin [Mass/Vol] 0.5 mg/dL Normal 0.2-1.3 [facility] Comment on above: Performed By: #### B MP, CMP ####[facility] Hpzxznibvj7334 [place] [address]Dr. Anjali Reagan Globulin (S) [Mass/Vol] 4.1 g/dL Normal [facility] Comment on above: Performed By: #### B MP, CMP ####[facility] Rjutoellgb7363 [place] [address]Dr. Anjali Reagan Protein [Mass/Vol] 6.7 g/dL Normal 6.1-8.2 [facility] Comment on above: Performed By: #### B MP, CMP ####[facility] Jtkkunopwv7268[address] [place], [place] [address]Dr. Anjali Reagan PROF CHEM 8 (BAS METB)on Anion gap [Moles/Vol] 11.3 mmol/L Normal [facility] Comment on above: Performed By: #### B MP, CMP ####[facility] Vdbghcpsut668550 [address] [place], [place] [address]Dr. Anjali Reagan Calcium [Mass/Vol] 9.0 mg/dL Normal 8.4-10.2 [facility] Comment on above: Performed By: #### B ALEA, CMP ####[facility] Tgcmcuimbw588850 [address] [place], [place] [address]Dr. Anjali Reagan Chloride [Moles/Vol] 101 mmol/L Normal 98-107 [facility] Comment on above: Performed By: #### B ALEA, CMP ####[facility] Paguqfgcnk974750 [address] [place], [place] [address]Dr. Anjali Reagan CO2 [Moles/Vol] 28.0 mmol/L Normal 22.0-30.0 [facility] Comment on above: Performed By: #### B ALEA, CMP ####[facility] Djmjwkfcta979050 [address] [place], [place] [address]Dr. Anjali Reagan Creatinine [Mass/Vol] 1.23 mg/dL Normal 0.66-1.25 [facility] Comment on above: Performed By: #### Grace COSBY, CMP ####[facility] Uinlxhqbrm385450 [address] [place], [place] [address]Dr. Anjali Reagan EGFR-AF FRENCH >60 Normal >=60 [facility] Comment on above: Performed By: #### B MP, CMP ####[facility] Kovgdllepj0129[address] [place], [place] [address]Dr. Anjali Reagan EGFR-NON AF FRENCH 59 mL/min/1.73m2 Critically low >=60 [facility] Comment on above: Performed By: #### B ALEA, CMP ####[facility] Bkooduioqh02[address] [place], [place] [id number]. Anjali Reagan Glucose [Mass/Vol] 109 mg/dL Critically high 74-[address] [facility] Comment on above: Performed By: #### B MP, CMP ####[facility] Lrqrfivlkk732050 [address] [place], [place] [address]Dr. Anjali Reagan Potassium [Moles/Vol] 3.9 mmol/L Normal 3.4-5.0 [facility] Comment on above: Performed By: #### B MP, CMP ####[facility] Tndtekmcdc699[address] [place], [place] [address]Dr. Anjali Reagan Sodium [Moles/Vol] 136 mmol/L Critically low 137-145 [facility] Comment on above: Performed By: #### B MP, CMP ####[facility] Cxnomyxtvc4266[address] [place], [place] [address]Dr. Anjali Reagan Urea nitrogen [Mass/Vol] 32.0 mg/dL Critically high 9.0-20 .0 [facility] Comment on above: Performed By: #### B MP, CMP ####[facility] Wgbqsoonmp8155[address] [place], [place] [address]Dr. Anjali Reagan Urea nitrogen/Creatinine [Mass ratio] 26.0 mg/mg Normal [facility] Comment on above: Performed By: #### B MP, CMP ####[facility] Epzqvslkxz686750 [address] [place], [place] [address]Dr. Anjali Reagan VANCOMYCIN TROUGHon 02-12-20 VANCOMYCIN TROUGH 9.8 ug/ml Normal 5.0-20.0 [facility] Comment on above: Performed By: #### V ANCT ####[facility] Tuwbzrreng7928[address] [place], [place] [address]Dr. Anjali Reagan XR ANKLE RT 2Von 02-11-2021 XR ANKLE RT 2V Normal [facility] XR FOOT RT MIN 3 VIEWSon XR FOOT RT MIN 3 VIEWS Normal [facility] CBC AUTO DIFFon 02-10-2021 BASO # 0.0 103/ul Normal 0.0-0.1 [facility] Comment on above: Performed By: #### C BC ####[facility] Kphaidylmw7[address] [place] [id number]. Anjali Reagan Basophils/100 WBC (Bld) 0.3 % Normal 0.2-2.0 [facility] Comment on above: Performed By: #### C BC ####[facility] Lltgykkqos48[address] [place] [id number]. Anjali Reagan EO # 0.2 103/ul Normal 0.0-0.7 [facility] Comment on above: Performed By: #### C BC ####[facility] Qymzoqtppp024[address] [place], [place] [id number]. Anjlai Reagan Eosinophils/100 WBC (Bld) 2.7 % Normal 0.9-7.0 [facility] Comment on above: Performed By: #### C BC ####[facility] Iokbcrnige158250 [address] [place], [place] [address]Dr. Anjali Reagan Erythrocyte distribution width (RBC) [Ratio] 18.8 % Critically high 11.0-15.0 [facility] Comment on above: Performed By: #### C BC ####[facility] Tol[address]ukdc[address] [place] [address]Dr. Anjali Reagan Hematocrit (Bld) [Volume fraction] 31.6 % Critically low 42.0-54.0 [facility] Comment on above: Performed By: #### C BC ####[facility] Kqfjjeanga40[address] [place] [id number]. Anjali Reagan Hemoglobin (Bld) [Mass/Vol] 9.6 g/dL Critically low 14.0-18.0 [facility] Comment on above: Performed By: #### C BC ####[facility] Dyutmqsljf60[address] [place] [id number]. Anjali Reagan IG # 0.04 10e3/ul Critically high 0.00-0.03 [facility] Comment on above: Performed By: #### C BC ####[facility] Gneilvkrjt13[address] [place] [id number]. Anjali Reagan IG % 0.6 % Critically high 0.0-0.5 [facility] Comment on above: Performed By: #### C BC ####[facility] Kngdatcjqq0735 [place] [phone]. Biancaramona Tez LYMPH # 0.9 103/ul Critically low 1.2-3.8 [facility] Comment on above: Performed By: #### C BC ####[facility] Aibcasrfmu4[address] [place] [phone]. Anjali Reagan Lymphocytes/100 WBC (Bld) 12.2 % Critically low 20.5-60.0 [facility] Comment on above: Performed By: #### C BC ####[facility] I[address]ykopitp[address] [place] [phone]. Anjali Reagan MANUAL DIFF REQ NO Normal [facility] Comment on above: Performed By: #### C BC ####[facility] Yusadghbsw44[address] [place] [phone]. Anjali Reagan MCH (RBC) [Entitic mass] 24.7 pg Critically low 25.9-34 .0 [facility] Comment on above: Performed By: #### C BC ####[facility] Jpwtogswwp3280 [place] [phone]. Anjali Reagan MCHC (RBC) [Mass/Vol] 30.4 g/dL Normal 29.9-35.2 [facility] Comment on above: Performed By: #### C BC ####[facility] Mtywrcydcr4846 [place] [phone]. Anjali Reagan MCV (RBC) [Entitic vol] 81.4 fL Normal 80.0-94.0 [facility] Comment on above: Performed By: #### C BC ####[facility] Cwbykaordu7727 [place] [phone]. Anjali Reagan MONO # 0.7 103/ul Normal 0.3-0.8 [facility] Comment on above: Performed By: #### C BC ####[facility] Cyqsvaredj8846 [place] [phone]. Anjali Reagan Monocytes/100 WBC (Bld) 9.9 % Normal 1.7-12.0 [facility] Comment on above: Performed By: #### C BC ####[facility] Zfrysdtaak7147 [place] [phone]. Anjali Reagan NEUT # 5.3 103/ul Normal 1.4-6.5 [facility] Comment on above: Performed By: #### C BC ####[facility] Bddzwczfqf8513 [place] [phone]. Anjali Reagan Neutrophils/100 WBC (Bld) 74.3 % Normal 43.0-75.0 [facility] Comment on above: Performed By: #### C BC ####[facility] Bmthsnrzad3896 [place] [phone]. Anjali Reagan Platelet mean volume (Bld) [Entitic vol] 9.6 fL Normal 9.5-13.5 [facility] Comment on above: Performed By: #### C BC ####[facility] Iqiwlgtyqs7101 [place] [address]Dr. Anjali Reagan PLT 218 103/ul Normal 150-450 [facility] Comment on above: Performed By: #### C BC ####[facility] Dskbjguvsz4398 [place] [phone]. Anjali Reagan RBC 3.88 106/ul Critically low 4.70-6.10 [facility] Comment on above: Performed By: #### C BC ####[facility] Hcwjjruwpv7856 [place] [phone]. Anjali Reagan WBC 7.1 103/ul Normal 4.0-11.0 [facility] Comment on above: Performed By: #### C BC ####[facility] Zcehehbacq3632 [place] [phone]. Anjali Reagan POINT OF CARE GLUCOSEon 01-31 Glucose [Mass/Vol] 219 mg/dL Critically high 74-106 [facility] Comment on above: Performed By: #### P OCGLUC ####[facility] Dausnnvkbn2658 [place] [address]Dr. Anjali Reagan Glucose [Mass/Vol] 136 mg/dL Critically high 74-106 [facility] Comment on above: Performed By: #### P OCGLUC ####[facility] Nalnvtagmv3218 [place] [address]Dr. Anjali Reagan Glucose [Mass/Vol] 119 mg/dL Critically high 74-[address] [facility] Comment on above: Performed By: #### P OCGLUC ####[facility] Qhfqtwxiir2417 [place] [address]Dr. Anjali Reagan PROF 14(COMP METB)on 021 Albumin [Mass/Vol] 2.8 g/dL Critically low 3.5-5.0 Th [facility] Comment on above: Performed By: #### C MP, BMP ####[facility] Etnxmxtseh3030 [place] [address]Dr. Anjali Reagan Albumin/Globulin [Mass ratio] 0.7 {ratio} Normal [facility] Comment on above: Performed By: #### C MP, BMP ####[facility] Mwzzasxskx6079 [place] [address]Dr. Anjali Reagan ALP [Catalytic activity/Vol] 109 U/L Normal 38-126 [facility] Comment on above: Performed By: #### C MP, BMP ####[facility] Ffmiinuxfo8843 [place] [address]Dr. Anjali Reagan ALT [Catalytic activity/Vol] 23 U/L Normal 21-72 [facility] Comment on above: Performed By: #### C MP, BMP ####[facility] Renatbcbqx3217 [place] [address]Dr. Anjali Reagan AST [Catalytic activity/Vol] 24 U/L Normal 17-59 [facility] Comment on above: Performed By: #### C MP, BMP ####[facility] Taahmpntrb[address] [place] [address]Dr. Anjali Reagan Bilirubin [Mass/Vol] 0.4 mg/dL Normal 0.2-1.3 [facility] Comment on above: Performed By: #### C MP, BMP ####[facility] Hmtfwlthwj8550 [place] [address]Dr. Anjali Reagan Globulin (S) [Mass/Vol] 4.1 g/dL Normal T [facility] Comment on above: Performed By: #### C ALEA, BMP ####[facility] Izosowzien4326[address] [place], [place] [address]Dr. Anjali Reagan Protein [Mass/Vol] 6.9 g/dL Normal 6.1-8.2 [facility] Comment on above: Performed By: #### C MP, BMP ####[facility] Mkaymeiogg1679[address] [place], [place] [address]Dr. Anjali Reagan PROF CHEM 8 (BAS METB)on Anion gap [Moles/Vol] 13.0 mmol/L Normal [facility] Comment on above: Performed By: #### C ALEA, BMP ####[facility] Ycwvweacqu7016[address] [place], [place] [address]Dr. Anjali Reagan Calcium [Mass/Vol] 9.4 mg/dL Normal 8.4-10.2 [facility] Comment on above: Performed By: #### C ALEA, BMP ####[facility] Jdgkjhlgex4527[address] [place], [place] [address]Dr. Anjali Reagan Chloride [Moles/Vol] 104 mmol/L Normal 98-107 [facility] Comment on above: Performed By: #### C ALEA, BMP ####[facility] Veeezszsjv1779[address] [place], [place] [address]Dr. Anjali Reagan CO2 [Moles/Vol] 27.7 mmol/L Normal 22.0-30.0 [facility] Comment on above: Performed By: #### C ALEA, BMP ####[facility] Bupnyuoevq4535[address] [place], [place] [address]Dr. Anjali Reagan Creatinine [Mass/Vol] 1.19 mg/dL Normal 0.66-1.25 [facility] Comment on above: Performed By: #### C ALEA, BMP ####[facility] Jhdlkmtgkv4[address] [place], [place] [address]Dr. Anjali Reagan EGFR-AF FRENCH >60 Normal >=60 [facility] Comment on above: Performed By: #### C ALEA, BMP ####[facility] Rcwdmctggq1997 [place] [address]Dr. Anjali Reagan EGFR-NON AF FRENCH >60 Normal >=60 [facility] Comment on above: Performed By: #### C ALEA, BMP ####[facility] Zwjcyfmcdr1364[address] [place], [place] [address]Dr. Anjali Tez Glucose [Mass/Vol] 81 mg/dL Normal 74-106 [facility] Comment on above: Performed By: #### C ALEA, BMP ####[facility] Geqrvjibey5016[address] [place], [place] [address]Dr. Anjali Tez Potassium [Moles/Vol] 4.1 mmol/L Normal 3.4-5.0 [facility] Comment on above: Performed By: #### C ALEA, BMP ####[facility] Slnheoovcd088[address] [place], [place] [address]Dr. Anjali Reagan Sodium [Moles/Vol] 141 mmol/L Normal 137-145 [facility] Comment on above: Performed By: #### C ALEA, BMP ####[facility] Srrbdspqpm8[address] [place], [place] [address]Dr. Anjali Tez Urea nitrogen [Mass/Vol] 41.0 mg/dL Critically high 9.0-20 .0 [facility] Comment on above: Performed By: #### Uzair COSBY, BMP ####[facility] Serjkyifpv659[address] [place], [place] [address]Dr. Anjali Reagan Urea nitrogen/Creatinine [Mass ratio] 34.4 mg/mg Normal [facility] Comment on above: Performed By: #### Uzair COSBY, BMP ####[facility] Xqylgjdtqf8014[address] [place], [place] [address]Dr. Biancaramona Tez CBC W MANUAL DIFFon 02-10-20 ANISOCYTOSIS SLIGHT Normal [facility] Comment on above: Performed By: #### Uzair PERSAUD ####[facility] Pevecxhtqh2950[address] [place], [place] [address]Dr. Anjali Reagan ATYPICAL LYMPH # Normal [facility] Comment on above: Performed By: #### Uzair PERSAUD ####[facility] Plscluzppy[address] [place], [place] [address]Dr. Yilan Reagan ATYPICAL LYMPH % Normal [facility] Comment on above: Performed By: #### C BCMAN ####[facility] Qiapxqgmfd1668 [place] [phone]. Yilan Reagan BAND # Normal 0.0-0.3 [facility] Comment on above: Performed By: #### C BCMAN ####[facility] Evswaxoigo4750 [place] [phone]. Yilan Reagan BAND % Normal 0-5 [facility] Comment on above: Performed By: #### C BCMAN ####[facility] Blcmngmzku5375 [place] [phone]. Yilan Reagan BASOM # 0.00 103/ul Normal 0.00-0.10 [facility] Comment on above: Performed By: #### C BCMAN ####[facility] Zzfxkfmyut2621 [place] [address]Dr. Yiramona Reagan BASOM % 0.0 % Critically low 0.2-2.0 [facility] Comment on above: Performed By: #### C BCMAN ####[facility] Trlwxpallo3841 [place] [phone]. Yilan Reagan BLAST # Normal [facility] Comment on above: Performed By: #### C BCMAN ####[facility] Qsmtilsths8772 [place] [phone]. Yilan Reagan BLAST % Normal [facility] Comment on above: Performed By: #### C BCMAN ####[facility] Xhmdeyxaza3055 [place] [phone]. Yilan Reagan CORRECTED WBC Normal 4.0-11.0 [facility] Comment on above: Performed By: #### C BCMAN ####[facility] Unobbxisaa4735 [place] [address]Dr. Yilan Reagan EOS # 0.00 103/ul Normal 0.00-0.70 [facility] Comment on above: Performed By: #### C BCMAN ####[facility] Pmskkoitio05[address] [place], [place] [address]Dr. Yilan Reagan EOS% 0.0 % Critically low 0.9-7.0 [facility] Comment on above: Performed By: #### C CORI ####[facility] Hrjbwpoptu1569 [place] [phone]. Anjali Reagan HCT 31.1 % Critically low 42.0-54.0 [facility] Comment on above: Performed By: #### C CORI ####[facility] Jbhaejnudo0766 [place] [phone]. Anjali Reagan HGB 9.6 g/dl Critically low 14.0-18.0 [facility] Comment on above: Performed By: #### C CORI ####[facility] Jfcachcllu0997 [place] [phone]. Anjali Reagan LYMPHM # 0.73 103/ul Critically low 1.20-3.80 [facility] Comment on above: Performed By: #### C CORI ####[facility] Lsuupujkjc7432 [place] [id number]. Anjali Reagan LYMPHM% 7.0 % Critically low 20.5-60.0 [facility] Comment on above: Performed By: #### C CORI ####[facility] Zriaiaommg2680 [place] [id number]. Anjali Reagan MCH 25.1 pg Critically low 25.9-34.0 [facility] Comment on above: Performed By: #### Uzair PERSAUD ####[facility] Npiawahyqj9706 [place] [id number]. Anjali Reagan MCHC 30.9 g/dl Normal 29.9-35.2 [facility] Comment on above: Performed By: #### C CORI ####[facility] Nbuenapuvg5549 [place] [phone]. Anjali Reagan MCV 81.4 fL Normal 80.0-94.0 [facility] Comment on above: Performed By: #### C CORI ####[facility] Bfyrwrokic6370 [place] [phone]. Anjali Reagan METAMYELOCYTE # Normal The [facility] Comment on above: Performed By: #### C CORI ####[facility] Wwixvhwewn1392 [place] [phone]. Anjali Reagan METAMYELOCYTE % Normal The [facility] Comment on above: Performed By: #### C CORI ####[facility] Htfylcvyfm4212 [place] [phone]. Anjali Reagan MONOM# 0.31 103/ul Normal 0.30-0.80 [facility] Comment on above: Performed By: #### C CORI ####[facility] Mgblgvgeks6148 [place] [phone]. Anjali Reagan MONOM% 3.0 % Normal 1.7-12.0 [facility] Comment on above: Performed By: #### C CORI ####[facility] Bnqmbidimf9346 [place] [phone]. Anjali Reagan MPV 9.9 fL Normal 9.5-13.5 [facility] Comment on above: Performed By: #### Uzair PERSAUD ####[facility] Olgzpudcjs3032 [place] [phone]. Anjali Reagan MYELOCYTE # Normal [facility] Comment on above: Performed By: #### Uzair PERSAUD ####[facility] Ypxodezmdz[address] [place], [place] [id number]. Anjali Reagan MYELOCYTE % Normal [facility] Comment on above: Performed By: #### Uzair PERSAUD ####[facility] Xsrlkqlndd8628 [place] [phone]. Anjlai Reagan NRBC Normal [facility] Comment on above: Performed By: #### Uzair PERSAUD ####[facility] Cbikpfogxc5809 [place] [phone]. Anjali Reagan OVALOCYTES SLIGHT Normal [facility] [facility] Comment on above: Performed By: #### C CORI ####[facility] Bgurinhxzm9343 [place] [phone]. Anjali Reagan PLT 211 103/ul Normal 150-450 The [facility] Comment on above: Performed By: #### Uzair PERSAUD ####[facility] Cohtkntqxs[address] [place], [place] [id number]. Anjali Reagan POIKILOCYTOSIS SLIGHT Normal The [facility] Comment on above: Performed By: #### C CORI ####[facility] Yvyqpysbcn5866 [place] [phone]. Anjali Reagan RBC 3.82 106/ul Critically low 4.70-6.10 The [facility] Comment on above: Performed By: #### C CORI ####[facility] Dqtumnaain3399 [place] [phone]. Anjali Reagan RDW 18.4 % Critically high 11.0-15.0 The [facility] Comment on above: Performed By: #### C CORI ####[facility] Vyzkjpnwhd4351 [place] [address]Dr. Anjali Reagan SEG # 9.36 103/ul Critically high 1.40-6.50 [facility] Comment on above: Performed By: #### C CORI ####[facility] Sqcshmxhgi9043 [place] [phone]. Anjali Reagan SEG % 90.0 % Critically high 43.0-75.0 The [facility] Comment on above: Performed By: #### C CORI ####[facility] Zgqgocinws5618 [place] [address]Dr. Anjali Reagan WBC 10.4 103/ul Normal 4.0-11.0 [facility] Comment on above: Performed By: #### Uzair PERSAUD ####[facility] Pwhoxcyyjd6456 [place] [phone]. Anjali Reagan HEP B SURFACE ANTIGEN SCREEN on 02-09-2021 HBsAg Screen Negative Normal Negative The [facility] Comment on above: Performed By: #### H CHINA ####[facility] Kqzpmlgyja9823 [place] [address]Dr. Anjali Reagan HEPATITIS C ANTIBODYon 02-09 Hep C Virus Ab <0.1 Normal 0.0-0.9 The [facility] Comment on above: Result Comment: Nega tive: < 0.8 Indeterminate: 0.8 - 0.9 Positive: > 0.9 . The CDC recommends that a positive HCV antibody result be followed up with a HCV Nucleic Acid Amplification test (934112). Performed By: #### H CV ####[facility] Xkglkfvqgq1024 [place] [address]Dr. Anjali Reagan HIV 1 AND 2 WITH REFLEXon HIV Screen 4th Generation wRfx Non-Reactive Normal Non Reactive [facility] Comment on above: Performed By: #### H IV12 ####[facility] Hcnptzvrte[address] [place], [place] [address]Dr. Anjali Reagan POINT OF CARE GLUCOSEon 01-31 Glucose [Mass/Vol] 170 mg/dL Critically high 74-106 [facility] Comment on above: Performed By: #### P OCGLUC ####[facility] Cuckmupiwo[address] [place], [place] [address]Dr. Anjali Reagan Glucose [Mass/Vol] 265 mg/dL Critically high -106 [facility] Comment on above: Performed By: #### P OCGLUC ####[facility] Vizeaneuce8612 [place] [address]Dr. Anjali Reagan Glucose [Mass/Vol] 319 mg/dL Critically high -106 [facility] Comment on above: Performed By: #### P OCGLUC ####[facility] Eehgyfyqqb44[address] [place], [place] [address]Dr. Anjali Reagan PROF 14(COMP METB)on 021 Albumin [Mass/Vol] 2.8 g/dL Critically low 3.5-5.0 [facility] Comment on above: Performed By: #### C MP ####[facility] Yihpygpfgq4225 [place] [address]Dr. Anjali Reagan Albumin/Globulin [Mass ratio] 0.7 {ratio} Normal [facility] Comment on above: Performed By: #### C MP ####[facility] Xsvctrcjyr8289 [place] [address]Dr. Anjali Reagan ALP [Catalytic activity/Vol] 117 U/L Normal 38-126 [facility] Comment on above: Performed By: #### C MP ####[facility] Lgwvmxmnnr6459 [place] [phone]. Anjali Reagan ALT [Catalytic activity/Vol] 21 U/L Normal 21-72 The [facility] Comment on above: Performed By: #### C MP ####[facility] Fijvrrbhha2014 [place] [address]Dr. Anjali Reagan Anion gap [Moles/Vol] 13.0 mmol/L Normal Th [facility] Comment on above: Performed By: #### C MP ####[facility] Qfsurgskdg7974 [place] [address]Dr. Anjali Reagan AST [Catalytic activity/Vol] 21 U/L Normal 17-59 The [facility] Comment on above: Performed By: #### C MP ####[facility] Ctmecsbnws99[address] [place], [place] [address]Dr. Anjali Reagan Bilirubin [Mass/Vol] 0.5 mg/dL Normal 0.2-1.3 The [facility] Comment on above: Performed By: #### C MP ####[facility] Rpneexvgwi17[address] [place], [place] [address]Dr. Anjali Reagan Calcium [Mass/Vol] 9.3 mg/dL Normal 8.4-10.2 [facility] Comment on above: Performed By: #### C MP ####[facility] Gmfqyzsjxc634[address] [place], [place] [address]Dr. Anjali Reagan Chloride [Moles/Vol] 100 mmol/L Normal 98-107 The [facility] Comment on above: Performed By: #### C MP ####[facility] Gvqalkckwh7561 [place] [address]Dr. Anjali Reagan CO2 [Moles/Vol] 27.5 mmol/L Normal 22.0-30.0 The [facility] Comment on above: Performed By: #### C MP ####[facility] Tsadooliqt1346[address] [place], [place] [address]Dr. Anjali Reagan Creatinine [Mass/Vol] 1.49 mg/dL Critically high 0.66-1.25 [facility] Comment on above: Performed By: #### C MP ####[facility] Tjaqlisbxg9053 [place] [phone]. Anjali Reagan EGFR-AF FRENCH 58 mL/min/1.73m2 Critically low >=60 [facility] Comment on above: Performed By: #### C MP ####[facility] Rxnwjbcgjc0662 [place] [address]Dr. Anjali Reagan EGFR-NON AF FRENCH 48 mL/min/1.73m2 Critically low >=60 [facility] Comment on above: Performed By: #### C MP ####[facility] Wkozcfhrno7158 [place] [address]Dr. Anjali Reagan Globulin (S) [Mass/Vol] 4.2 g/dL Normal [facility] Comment on above: Performed By: #### C MP ####[facility] Mibmwpujyq28[address] [place], [place] [address]Dr. Anjali Reagan Glucose [Mass/Vol] 276 mg/dL Critically high 74-106 [facility] Comment on above: Performed By: #### C MP ####[facility] Ljmztllnbd07[address] [place], [place] [address]Dr. Anjali Reagan Potassium [Moles/Vol] 4.5 mmol/L Normal 3.4-5.0 [facility] Comment on above: Performed By: #### C MP ####[facility] Gqaoejyquo035[address] [place], [place] [address]Dr. Anjali Reagan Protein [Mass/Vol] 7.0 g/dL Normal 6.1-8.2 [facility] Comment on above: Performed By: #### C MP ####[facility] Ddnyhpwtog0768 [place] [address]Dr. Anjali Reagan Sodium [Moles/Vol] 136 mmol/L Critically low 137-145 [facility] Comment on above: Performed By: #### C MP ####[facility] Bjgmbiimgh7[address] [place], [place] [address]Dr. Anjali Reagan Urea nitrogen [Mass/Vol] 42.0 mg/dL Critically high 9.0-20 .0 [facility] Comment on above: Performed By: #### C MP ####[facility] Sroatyxenm7026 [place] [phone]. Anjali Reagan Urea nitrogen/Creatinine [Mass ratio] 28.2 mg/mg Normal The [facility] Comment on above: Performed By: #### C MP ####[facility] Gggnkrwcwl2838 [place] [phone]. Anjali Reagan RPR QUANTon 02-09-2021 Rapid Plasma Reagin, Quant Non-Reactive Normal NonRea<1:1 The [facility] Comment on above: Performed By: #### R PRQ ####[facility] [address]qkupcckuz[address] [place], [place] [phone]. Anjali Reagan XR ANKLE RT 2Von 02-09-2021 XR ANKLE RT 2V Normal The [facility] XR TIB_FIB RT 2Von XR TIB_FIB RT 2V Normal The [facility] CRPon 02-08-2021 CRP 3.2 mg/dL Critically high <=1.0 The [facility] Comment on above: Performed By: #### C RP ####[facility] Lmyjveyvuv[address] [place], [place] [phone]. Anjali Reagan CULTURE ANAEROBICon 02-09-20 21 CULTURE ANAEROBIC Specimen Comments: RIGHT FOOT IRRIGATION SWAB Culture Observations: NO GROWTH AT 72 HRS Normal [facility] Comment on above: Performed By: #### A NACX ####[facility] Envxdrvvdm[address] [place], [place] [phone]. Anjali Reagan CULTURE ANAEROBIC Specimen Comments: RIGHT LEG REAMINGS Culture Observations: NO GROWTH OF ANAEROBES AT 72 HOURS. Normal The [facility] Comment on above: Performed By: #### A NACX ####[facility] Opgpclggeb8269 [place] [phone]. Anjali Reagan CULTURE ANAEROBIC Culture Observations : NO GROWTH AT 72 HRS Normal [facility] Comment on above: Performed By: #### A NACX ####[facility] Adzxnlwjcl9[address] [place], [place] [address]Dr. Anjali Reagan CULTURE ANAEROBIC Specimen Comments: RIGHT TIBIA BONE Culture Observations: NO GROWTH AT 72 HRS Normal [facility] Comment on above: Performed By: #### A NACX ####[facility] [address] [place] [address]k. Yilan Reagan CULTURE ANAEROBIC Specimen Comments: RIGHT CALCANEOUS BONE Culture Observations: NO GROWTH OF ANAEROBES AT 72 HOURS. [facility] Comment on above: Performed By: #### A NACX ####[facility] N[address]nsayreof[address] [place] [address]My. Yilan Reagan CULTURE ANAEROBIC Specimen Comments: RIGHT ANKLE ABSCESS Culture Observations: NO GROWTH AT 72 HRS [facility] Comment on above: Performed By: #### A NACX ####[facility] Zidvqtxjbk[address] [place], [place] [address]Dr. Yilan Reagan CULTURE OTHERon 02-08-2021 CULTURE OTHER Specimen Comments: RIGHT LEG REAMINGS Culture Observations: NORMAL SKIN ARELI. [facility] Comment on above: Performed By: #### O THCX ####[facility] Fnagyojijx18[address] [place], [place] [address]Dr. Yilan Reagan CULTURE OTHER Specimen Comments: RIGHT FOOT IRRIGATION SWAB Culture Observations: NO GROWTH AT 72 HRS [facility] Comment on above: Performed By: #### O THCX ####[facility] Guch[address] [place], [place] [address]Dr. Yilan Reagan CULTURE OTHER Specimen Comments: RIGHT CALCANEOUS BONE Culture Observations: NORMAL SKIN ARELI. [facility] Comment on above: Performed By: #### O THCX ####[facility] Bbmsonjfvr20[address] [place], [place] [phone]. Yilan Reagan CULTURE OTHER Specimen Comments: RIGHT TIBIA BONE Culture Observations: NO GROWTH AT 72 HRS [facility] Comment on above: Performed By: #### O THCX ####[facility] [address] [place] [address]Uv. Yilan Reagan CULTURE OTHER Specimen Comments: RIGHT TALUS BONE Culture Observations: NORMAL SKIN ARELI. [facility] Comment on above: Performed By: #### O THCX ####[facility] [address]qkemie[address] [place] [address]v. Yilan Reagan CULTURE OTHER Specimen Comments: RIGHT ANKLE ABSCESS Culture Observations: NO GROWTH AT 72 HRS [facility] Comment on above: Performed By: #### O THCX ####[facility] Bxynryhjjm1241 [place] [address]Dr. Anjali Reagan GRAM STAINon 02-08-2021 COMMENTS NO ORGANISMS OBSERVED Normal The [facility] Comment on above: Performed By: #### G STAIN ####[facility] Zpedumqesb9069 [place] [address]Dr. Anjali Reagan DIPHTHEROIDS Normal The [facility] Comment on above: Performed By: #### G STAIN ####[facility] Kilkioeeui1812 [place] [address]Dr. Anjali Reagan EPITHELIALS Normal The [facility] Comment on above: Performed By: #### G STAIN ####[facility] G[address]qyoznrrp[address] [place], [place] [address]Dr. Anjali eRagan FUNGAL ELEMENTS Normal The [facility] Comment on above: Performed By: #### G STAIN ####[facility] Medcpnatar00[address] [place], [place] [address]Dr. Anjali Reagan GRAM NEG BACILLI Normal The [facility] Comment on above: Performed By: #### G STAIN ####[facility] Fwqcbnjfbv9[address] [place], [place] [address]Dr. Anjlai Reagan GRAM NEG DIPPLOCOCCI Normal The [facility] Comment on above: Performed By: #### G STAIN ####[facility] Rlhkenpwpt7194 [place] [address]Dr. Anjali Reagan GRAM POS BACILLI Normal The [facility] Comment on above: Performed By: #### G STAIN ####[facility] Eaycylssev9670 [place] [address]Dr. Anjali Reagan GRAM POSITIVE COCCI Normal The [facility] Comment on above: Performed By: #### G STAIN ####[facility] Lcsivlbmae[address] [place], [place] [address]Dr. Anjali Reagan GRAM STAIN SOURCE RIGHT LEG REAMINGS Normal The [facility] Comment on above: Performed By: #### G STAIN ####[facility] Gmphzvdyuz5337 [place] [address]Dr. Anjali Reagan GRAM STAIN SOURCE RIGHT FOOT POST IRRIGATION SWAB Normal The [facility] Comment on above: Performed By: #### G STAIN ####[facility] Jdytlvqqog3953 [place] [address]Dr. Anjali Reagan GS_DIPTH Normal The [facility] Comment on above: Performed By: #### G STAIN ####[facility] Utrupyuzlb7602 [place] [phone]. Anjali Reagan WBC MODERATE Normal The [facility] Comment on above: Performed By: #### G STAIN ####[facility] Jvqonoeljt7880 [place] [address]Dr. Anjali Reagan WBC NONE SEEN Normal The [facility] Comment on above: Performed By: #### G STAIN ####[facility] Qbaimlgrjh8824 [place] [address]Dr. Anjali Reagan COMMENTS NO ORGANISMS OBSERVED Normal The [facility] Comment on above: Performed By: #### G STAIN ####[facility] Keisuttgfk2246 [place] [address]Dr. Anjali Reagan DIPHTHEROIDS Normal The [facility] Comment on above: Performed By: #### G STAIN ####[facility] Grhujnegeu6545 [place] [address]Dr. Anjali Reagan EPITHELIALS Normal The [facility] Comment on above: Performed By: #### G STAIN ####[facility] Xitwdanjqf7422 [place] [address]Dr. Anjali Reagan FUNGAL ELEMENTS Normal The [facility] Comment on above: Performed By: #### G STAIN ####[facility] Bdendhxjsh0446 [place] [address]Dr. Anjali Reagan GRAM NEG BACILLI Normal The [facility] Comment on above: Performed By: #### G STAIN ####[facility] Dznydxsedz0810 [place] [address]Dr. Anjali Reagan GRAM NEG DIPPLOCOCCI Normal The [facility] Comment on above: Performed By: #### G STAIN ####[facility] Cgjkrvbsna8391 [place] [address]Dr. Anjali Reagan GRAM POS BACILLI Normal The [facility] Comment on above: Performed By: #### G STAIN ####[facility] Hxohkxjucs7909 [place] [phone]. Anjali Reagan GRAM POSITIVE COCCI Normal [facility] Comment on above: Performed By: #### G STAIN ####[facility] Hyifkepoaj0622 [place] [address]Dr. Anjali Reagan GRAM STAIN SOURCE RIGHT TIBIA BONE Normal [facility] Comment on above: Performed By: #### G STAIN ####[facility] Ylnbulfupg3319 [place] [address]Dr. Anjali Reagan GRAM STAIN SOURCE RIGHT CALCANEOUS BONE Normal The [facility] Comment on above: Performed By: #### G STAIN ####[facility] Vjsedmmdpv0741 [place] [address]Dr. Anjali Reagan GRAM STAIN SOURCE RIGHT TALUS BONE Normal [facility] Comment on above: Performed By: #### G STAIN ####[facility] Duifaeqwam7796 [place] [address]Dr. Anjali Reagan GS_DIPTH Normal [facility] Comment on above: Performed By: #### G STAIN ####[facility] Vzjuqnwxqk7383 [place] [address]Dr. Anjali Reagan WBC NONE SEEN Normal [facility] Comment on above: Performed By: #### G STAIN ####[facility] Vzikrzhzpj0651 [place] [address]Dr. Anjali Reagan WBC FEW Normal The [facility] Comment on above: Performed By: #### G STAIN ####[facility] Pnuhmxmrvn4277 [place] [address]Dr. Anjali Reagan COMMENTS NO ORGANISMS OBSERVED Normal The [facility] Comment on above: Performed By: #### G STAIN ####[facility] Anjejoccxk4099 [place] [address]Dr. Anjali Reagan DIPHTHEROIDS Normal The [facility] Comment on above: Performed By: #### G STAIN ####[facility] Ziguatdaqx9007 [place] [address]Dr. Anjali Reagan EPITHELIALS Normal The [facility] Comment on above: Performed By: #### G STAIN ####[facility] Egxdpmjudq3446 [place] [address]Dr. Anjali Reagan FUNGAL ELEMENTS Normal The [facility] Comment on above: Performed By: #### G STAIN ####[facility] Cisjmrevtk[address] [place], [place] [address]Dr. Anjali Reagan GRAM NEG BACILLI Normal The [facility] Comment on above: Performed By: #### G STAIN ####[facility] Rotnmqfvcp6034[address] [place], [place] [address]Dr. Anjali Reagan GRAM NEG DIPPLOCOCCI Normal The [facility] Comment on above: Performed By: #### G STAIN ####[facility] Gjqreyolnp235250 [address] [place], [place] [address]Dr. Anjali Reagan GRAM POS BACILLI Normal The [facility] Comment on above: Performed By: #### G STAIN ####[facility] Refgqamdcf912850 [address] [place], [place] [address]Dr. Anjali Reagan GRAM POSITIVE COCCI Normal The [facility] Comment on above: Performed By: #### G STAIN ####[facility] Xtnbqswnjj4490[address] [place], [place] [address]Dr. Anjali Reagan GRAM STAIN SOURCE RIGHT FOOT ABSCESS SWAB Normal The [facility] Comment on above: Performed By: #### G STAIN ####[facility] Dxrlcjfbhi7[address] [place], [place] [address]Dr. Anjali Reagan GS_DIPTH Normal The [facility] Comment on above: Performed By: #### G STAIN ####[facility] Gdyfutvxvg704[address] [place], [place] [address]Dr. Anjali Reagan WBC RARE Normal The [facility] Comment on above: Performed By: #### G STAIN ####[facility] Dmrwgytzav9[address] [place], [place] [address]Dr. Anjali Reagan HIV 1/2 RAPID (EXPOSURE ONLY )on 02-08-2021 HIV AB Negative Normal [facility] Comment on above: Performed By: #### R PDHIV ####[facility] Ytukodexfv4[address] [place], [place] [address]Dr. Anjali Reagan HIV AG Negative Normal The [facility] Comment on above: Performed By: #### R PDHIV ####[facility] Fquakepdlo4725 [place] [phone]. Anjali Reagan INTERNAL CONTROLS Within Normal Limits Normal Wi thin Normal Limits [facility] Comment on above: Performed By: #### R PDHIV ####[facility] Sxoceodioo3479 [place] [address]Dr. Anjali Reagan RAPID HIV INFO SEE BELOW Normal [facility] Comment on above: Result Comment: This test is used for the initial screening of the exposure source. Confirmation of all results will be obtained through reference lab testing. Performed By: #### R PDHIV ####[facility] Owkfwfrzjm8535 [place] [address]Dr. Anjali Reagan POINT OF CARE GLUCOSEon Glucose [Mass/Vol] 400 mg/dL Critically high [address] [place] [address] Comment on above: Performed By: #### P OCGLUC ####[facility] Unfzxghcrg528[address] [place], [place] [address]Dr. Anjali Reagan Glucose [Mass/Vol] 373 mg/dL Critically high [address] [place] [address] Comment on above: Performed By: #### P OCGLUC ####[facility] Uvakbrnnbq3882 [place] [address]Dr. Anjali Reagan Glucose [Mass/Vol] 159 mg/dL Critically high [address] [place] [address] Comment on above: Performed By: #### P OCGLUC ####[facility] Ujvccyejdf[address] [place], [place] [address]Dr. Anjali Reagan Glucose [Mass/Vol] 160 mg/dL Critically high -[address] [place] [address] Comment on above: Performed By: #### P OCGLUC ####[facility] Qserznloyi5357 [place] [address]Dr. Anjali Reagan SED RATE WESTERGRENon 2020 SED RATE 51 mm/hr Critically high <=20 [facility] Comment on above: Performed By: #### S EDR ####[facility] Erfafhcqjt5813 [place] [address]Dr. Anjali Reagan CBC W MANUAL DIFFon 02-06-20 21 ATYPICAL LYMPH # Normal [facility] Comment on above: Performed By: #### C CORI ####[facility] Bautuumnrl0568 [place] [phone]. Yilan Reagan ATYPICAL LYMPH % Normal The [facility] Comment on above: Performed By: #### C BCFIONA ####[facility] Seoofwamvl8184 [place] [phone]. Yilan Reagan BAND # 0.2 103/ul Normal 0.0-0.3 The [facility] Comment on above: Performed By: #### C BCFIONA ####[facility] Lzvfcdflhc2450 [place] [address]Dr. Yilan Reagan BAND % 3 % Normal 0-5 The [facility] Comment on above: Performed By: #### C CORI ####[facility] Krliwqwhls9450 [place] [address]Dr. Yilan Reagan BASOM # 0.07 103/ul Normal 0.00-0.10 The [facility] Comment on above: Performed By: #### C CORI ####[facility] Xxfncmeurm[address] [place], [place] [address]Dr. Yiramona Reagan BASOM % 1.0 % Normal 0.2-2.0 The [facility] Comment on above: Performed By: #### C CORI ####[facility] Pklwppvevt2594 [place] [address]Dr. Yilan Reagan BLAST # Normal The [facility] Comment on above: Performed By: #### C CORI ####[facility] Wkhwdqimqo010[address] [place], [place] [address]Dr. Yilan Reagan BLAST % Normal The [facility] Comment on above: Performed By: #### C CORI ####[facility] Mwwhzbkfcu4635 [place] [address]Dr. Biancalan Reagan CORRECTED WBC Normal 4.0-11.0 The [facility] Comment on above: Performed By: #### C CORI ####[facility] Cdohbvngsk6265 [place] [id number]. Yilan Reagan EOS # 0.57 103/ul Normal 0.00-0.70 The [facility] Comment on above: Performed By: #### C CORI ####[facility] Movcazqvxi9375 [place], [place] [address]Pl. Anjali Reagan EOS% 8.0 % Critically high 0.9-7.0 The [facility] Comment on above: Performed By: #### C CORI ####[facility] Ohnrqqawzb5782 [place], [place] [address]Og. Anjali Reagan HCT 32.9 % Critically low 42.0-54.0 The [facility] Comment on above: Performed By: #### C CORI ####[facility] Ggnmsowshz9228 [place], [place] [address]Nz. Anjali Reagan HGB 10.2 g/dl Critically low 14.0-18.0 [facility] Comment on above: Performed By: #### C CORI ####[facility] Wbinzcuvsh0844 [place], [place] [address]Ek. Anjali Reagan LYMPHM # 0.78 103/ul Critically low 1.20-3.80 The [facility] Comment on above: Performed By: #### C CORI ####[facility] Ktabbrhmmr6771 [place], [place] [address]Um. Anjali Reagan LYMPHM% 11.0 % Critically low 20.5-60.0 The [facility] Comment on above: Performed By: #### Uzair PERSAUD ####[facility] Ficuepxbrs0223 [place], [place] [address]Xr. Anjali Reagan MCH 24.9 pg Critically low 25.9-34.0 The [facility] Comment on above: Performed By: #### C CORI ####[facility] Pazavshnpj6998 [place], [place] [address]Gc. Anjali Reagan MCHC 31.0 g/dl Normal 29.9-35.2 The [facility] Comment on above: Performed By: #### C CORI ####[facility] Kjivntdoaz8469 [place], [place] [address]Ol. Anjali Reagan MCV 80.4 fL Normal 80.0-94.0 The [facility] Comment on above: Performed By: #### C CORI ####[facility] Ciahuucujs7886 [place], [place] [address]Et. Anjali Reagan METAMYELOCYTE # Normal The [facility] Comment on above: Performed By: #### C CORI ####[facility] Qmaafgrejf0287 [place] [id number]. Anjali Reagan METAMYELOCYTE % Normal The [facility] Comment on above: Performed By: #### C CORI ####[facility] Xfobxgnfvj5729 [place] [id number]. Anjali Reagan MONOM# 0.57 103/ul Normal 0.30-0.80 [facility] Comment on above: Performed By: #### C CORI ####[facility] Hhclprfbvf3060 [place] [id number]. Anjali Reagan MONOM% 8.0 % Normal 1.7-12.0 [facility] Comment on above: Performed By: #### C CORI ####[facility] Naxkeqqpkd5852 [place] [phone]. Anjali Reagan MPV 9.2 fL Critically low 9.5-13.5 [facility] Comment on above: Performed By: #### Uzair PERSAUD ####[facility] [address] [place], [place] [id number]. Anjali Reagan MYELOCYTE # Normal The [facility] Comment on above: Performed By: #### Uzair PERSAUD ####[facility] Plrgnrobkx9306 [place] [id number]. Biancaramona Reagan MYELOCYTE % Normal The [facility] Comment on above: Performed By: #### Uzair PERSAUD ####[facility] Obunxpjjbf2341 [place] [phone]. Biancaramona Tez NRBC Normal The [facility] Comment on above: Performed By: #### C CORI ####[facility] Zrdgtzjwhz3034 [place] [phone]. Anjali Reagan OVALOCYTES 1+ Normal The [facility] Comment on above: Performed By: #### Uzair PERSAUD ####[facility] Czltgokmzw1058 [place] [phone]. Anjali Reagan PLT 209 103/ul Normal 150-450 The [facility] Comment on above: Performed By: #### Uzair PERSAUD ####[facility] Qyzietcanp7836 [place], [place] [address]Ks. Anjali Reagan RBC 4.09 106/ul Critically low 4.70-6.10 The [facility] Comment on above: Performed By: #### Uzair PERSAUD ####[facility] Mrbxbdvkhy9354 [place] [phone]. Anjali Reagan RDW 18.2 % Critically high 11.0-15.0 The [facility] Comment on above: Performed By: #### Uzair PERSAUD ####[facility] Zgobsdmrsm5125 [place] [phone]. Anjali Reagan SEG # 4.90 103/ul Normal 1.40-6.50 [facility] Comment on above: Performed By: #### Uzair PERSAUD ####[facility] Zvafofpobu2783 [place] [id number]. Anjali Reagan SEG % 69.0 % Normal 43.0-75.0 The [facility] Comment on above: Performed By: #### Uzair PERSAUD ####[facility] Xoaelbbjbq9933 [place] [phone]. Anjali Reagan WBC 7.1 103/ul Normal 4.0-11.0 The [facility] Comment on above: Performed By: #### Uzair PERSAUD ####[facility] Udnvqpykln2377 [place] [phone]. Anjali Reagan CT ABD/PELVIS WO CONon 02-05 CT ABD/PELVIS WO CON Normal The [facility] Covid-19 PCR ([facility])on SARS-CoV-2 (COVID-19) RNA MEREDITH+probe Ql (Unsp spec) Not detected Normal NOT DETECTED The [facility] Comment on above: Result Comment: This test is not yet approved or cleared by the [place] FDA. When there are no FDA-approved or cleared tests available, and other criteria are met, FDA can make tests available under an emergency access mechanism called an Emergency Use Authorization (EUA). The EUA for this test is supported by the [place] of Health and Human Service's (HHS's) declaration [...] with SARS-CoV-2. Performed By: #### C VDTB ####[facility] Umimeebxrz955[address] [place], [place] [address]Dr. Anjali Reagan ER URINE PROFILEon 1 Bilirubin Ql (U) Negative Normal NEGATIVE The [facility] Comment on above: Performed By: #### E RUR ####[facility] Sogcfxeiox7669[address] [place], [place] [address]Dr. Anjali Reagan Clarity (U) CLEAR Normal CLEAR The [facility] Comment on above: Performed By: #### E RUR ####[facility] Dfntzkkclw4523[address] [place], [place] [address]Dr. Anjali Reagan Color (U) LT. YELLOW Normal YELLOW The [facility] Comment on above: Performed By: #### E RUR ####[facility] Vhvjzxldet38[address] [place], [place] [address]Dr. Anjali Reagan ERUAHD A micrscopic examination will be performed if indicated. Normal The [facility] Comment on above: Performed By: #### E RUR ####[facility] Byulezfivh3037[address] [place], [place] [address]Dr. Anjali Reagan Glucose Ql (U) Negative Normal NEGATIVE The [facility] Comment on above: Performed By: #### E RUR ####[facility] Xxhxyloryf3150[address] [place], [place] [address]Dr. Anjali Reagan Hemoglobin Ql (U) Negative Normal NEGATIVE The [facility] Comment on above: Performed By: #### E RUR ####[facility] Hujgctshhk8589 [place] [address]Dr. Anjali Reagan Ketones Ql (U) Negative Normal NEGATIVE The [facility] Comment on above: Performed By: #### E RUR ####[facility] Cixruesfhe4848 [place] [address]Dr. Biancaramona Tez LEUKOCYTES Negative Normal NEGATIVE The [facility] Comment on above: Performed By: #### E RUR ####[facility] Mxwwugnfbk545[address] [place], [place] [address]Dr. Anjali Reagan Nitrite Ql (U) Negative Normal NEGATIVE The [facility] Comment on above: Performed By: #### E RUR ####[facility] Gaerqwxhxi1028[address] [place], [place] [address]Dr. Anjali Reagan pH (U) 6.0 [pH] Normal 5-9 [facility] Comment on above: Performed By: #### E RUR ####[facility] Wtaoyptiiz7920[address] [place], [place] [address]Dr. Anjali Reagan SPEC GRAVITY 1.015 Normal 1.005-<=1.0 25 [facility] Comment on above: Performed By: #### E RUR ####[facility] Txxairppjm4594[address] [place], [place] [address]Dr. Anjali Reagan UA PROTEIN TRACE Normal NEGATIVE/ TRACE [facility] Comment on above: Performed By: #### E RUR ####[facility] Visvylluyo1356[address] [place], [place] [address]Dr. Anjali Reagan UR MICRO IND NOT INDICATED Normal The [facility] Comment on above: Performed By: #### E RUR ####[facility] Zvkqxfnnsb980350 [address] [place], [place] [address]Dr. Anjali Reagan Urobilinogen Qn (U) 0.2 {Geremias'U}/dL Normal 0.2 - 1. 0 [facility] Comment on above: Performed By: #### E RUR ####[facility] Zjqohtdrds9070[address] [place], [place] [address]Dr. Anjali Reagan PROF 14(COMP METB)on 021 Albumin [Mass/Vol] 2.8 g/dL Critically low 3.5-5.0 [facility] Comment on above: Performed By: #### C MP ####[facility] Wmwxpvjzfb7982 [place] [address]Dr. Anjali Tez Albumin/Globulin [Mass ratio] 0.6 {ratio} Normal [facility] Comment on above: Performed By: #### C MP ####[facility] Jbygxrqote8404 [place] [address]Dr. Anjali Tez ALP [Catalytic activity/Vol] 125 U/L Normal 38-126 [facility] Comment on above: Performed By: #### C MP ####[facility] Bygjavopnf490[address] [place], [place] [address]Dr. Anjali Tez ALT [Catalytic activity/Vol] 22 U/L Normal 21-72 [facility] Comment on above: Performed By: #### C MP ####[facility] Qnaiusabun462250 [address] [place], [place] [address]Dr. Biancaramona Tez Anion gap [Moles/Vol] 13.1 mmol/L Normal [facility] Comment on above: Performed By: #### C MP ####[facility] Wqhpbwwtde705[address] [place], [place] [address]Dr. Anjali Tez AST [Catalytic activity/Vol] 26 U/L Normal 17-59 [facility] Comment on above: Performed By: #### C MP ####[facility] Kzualxxvwg954250 [address] [place], [place] [address]Dr. Biancaramona Tez Bilirubin [Mass/Vol] 0.8 mg/dL Normal 0.2-1.3 [facility] Comment on above: Performed By: #### C MP ####[facility] Hcbnumgbwy545[address] [place], [place] [address]Dr. Anjali Tez Calcium [Mass/Vol] 9.2 mg/dL Normal 8.4-10.2 [facility] Comment on above: Performed By: #### C MP ####[facility] Rdvvuwetzk948850 [address] [place], [place] [address]Dr. Anjali Reagan Chloride [Moles/Vol] 98 mmol/L Normal 98-107 [facility] Comment on above: Performed By: #### C MP ####[facility] Aeyuowmxha5672 [place] [phone]. Anjali Reagan CO2 [Moles/Vol] 28.7 mmol/L Normal 22.0-30.0 [facility] Comment on above: Performed By: #### C MP ####[facility] Kmrcidyhpj9574 [place] [phone]. Anjali Reagan Creatinine [Mass/Vol] 1.62 mg/dL Critically high 0.66-1.25 [facility] Comment on above: Performed By: #### C MP ####[facility] Xbrndoybds2439 [place] [phone]. Anjali Reagan EGFR-AF FRENCH 52 mL/min/1.73m2 Critically low >=60 [facility] Comment on above: Performed By: #### C MP ####[facility] Nqrqopxiaw5927 [place] [address]Dr. Anjali Reagan EGFR-NON AF FRENCH 43 mL/min/1.73m2 Critically low >=60 [facility] Comment on above: Performed By: #### C MP ####[facility] Hgtynlpsen7796 [place] [address]Dr. Anjali Reagan Globulin (S) [Mass/Vol] 4.6 g/dL Normal [facility] Comment on above: Performed By: #### C MP ####[facility] Lobncomten1503 [place] [address]Dr. Anjali Reagan Glucose [Mass/Vol] 192 mg/dL Critically high 74-106 [facility] Comment on above: Performed By: #### C MP ####[facility] Kkiwmycibq9202 [place] [phone]. Anjali Reagan Potassium [Moles/Vol] 4.8 mmol/L Normal 3.4-5.0 [facility] Comment on above: Performed By: #### C MP ####[facility] Wyxbbzwhax7456 [place] [phone]. Anjali Reagan Protein [Mass/Vol] 7.4 g/dL Normal 6.1-8.2 [facility] Comment on above: Performed By: #### C MP ####[facility] Hrmsfurcwm7612 [place] [address]Dr. Anjali Reagan Sodium [Moles/Vol] 135 mmol/L Critically low 137-145 [facility] Comment on above: Performed By: #### C MP ####[facility] Oqyuufhgws6712[address] [place], [place] [address]Dr. Anjali Reagan Urea nitrogen [Mass/Vol] 40.0 mg/dL Critically high 9.0-20 .0 [facility] Comment on above: Performed By: #### C MP ####[facility] Skqiamoxmq0825[address] [place], [place] [address]Dr. Anjali Reagan Urea nitrogen/Creatinine [Mass ratio] 24.7 mg/mg Normal [facility] Comment on above: Performed By: #### C MP ####[facility] Ymavrtywxv3398[address] [place], [place] [address]Dr. Anjali Reagan PROF CHEM 8 (BAS METB)on Anion gap [Moles/Vol] 13.4 mmol/L Normal [facility] Comment on above: Performed By: #### B MP ####[facility] Klmzernrrd704250 [address] [place], [place] [address]Dr. Anjali Reagan Calcium [Mass/Vol] 9.3 mg/dL Normal 8.4-10.2 [facility] Comment on above: Performed By: #### B MP ####[facility] Pletaxexgu5860[address] [place], [place] [address]Dr. Anjali Reagan Chloride [Moles/Vol] 98 mmol/L Normal 98-107 [facility] Comment on above: Performed By: #### B MP ####[facility] Yfgxuktxpb3320[address] [place], [place] [address]Dr. Anjali Reagan CO2 [Moles/Vol] 28.8 mmol/L Normal 22.0-30.0 [facility] Comment on above: Performed By: #### B MP ####[facility] Iyhhpqzdyn7249[address] [place], [place] [address]Dr. Anjali Reagan Creatinine [Mass/Vol] 1.72 mg/dL Critically high 0.66-1.25 [facility] Comment on above: Performed By: #### B MP ####[facility] Jrzxukshli6145[address] [place], [place] [address]Dr. Anjali Reagan EGFR-AF FRENCH 49 mL/min/1.73m2 Critically low >=60 [facility] Comment on above: Performed By: #### B MP ####[facility] Bzhoftktta659[address] [place], [place] [address]Dr. Anjali Reagan EGFR-NON AF FRENCH 40 mL/min/1.73m2 Critically low >=60 [facility] Comment on above: Performed By: #### B MP ####[facility] Jgipmwakom4270[address] [place], [place] [address]Dr. Anjali Reagan Glucose [Mass/Vol] 204 mg/dL Critically high 74-[address] [facility] Comment on above: Performed By: #### B MP ####[facility] Rdymgqhlwn140150 [address] [place], [place] [address]Dr. Anjali Reagan Potassium [Moles/Vol] 4.2 mmol/L Normal 3.4-5.0 [facility] Comment on above: Performed By: #### B MP ####[facility] Gocwbpdupy7250[address] [place], [place] [address]Dr. Anjali Reagan Sodium [Moles/Vol] 136 mmol/L Critically low 137-145 Th [facility] Comment on above: Performed By: #### B MP ####[facility] Wobxxhozza775[address] [place], [place] [address]Dr. Anjali Reagan Urea nitrogen [Mass/Vol] 35.0 mg/dL Critically high 9.0-20 .0 [facility] Comment on above: Performed By: #### B MP ####[facility] Osvgxuktbb288[address] [place], [place] [address]Dr. Anjali Reagan Urea nitrogen/Creatinine [Mass ratio] 20.3 mg/mg Normal [facility] Comment on above: Performed By: #### B MP ####[facility] Iadkaazrkx9899[address] [place], [place] [address]Dr. Anjali Reagan CT ANKLE RT WO CONon 10-27-[address] ANKLE RT WO CON Normal The [facility] XR ANKLE RT MIN 3 VIEWSon XR ANKLE RT MIN 3 VIEWS Normal T [facility] XR ANKLE RT MIN 3 VIEWSon XR ANKLE RT MIN 3 VIEWS Normal T [facility] Otolaryngology Office/Clinic Noteon 01-19-2021 Otolaryngology Office/Clinic [...] Dr. Freed. Previous pathology by physician in [place] about 1 year ago. PMHx of multiple [...] 2. Basal (more content not included)... Normal [facility] BASIC METABOLIC PANEL W/O CA on 01-15-2021 Chloride [Moles/Vol] 98 mmol/L Normal 98-110 Ques t [facility] Comment on above: Order Comment: FASTI NG:YESFASTING: YES Performed By: #### 1 0165, 688, 620 #### [facility] [address], [address] [place] [address] Candle Cutter: Juan Meraz MD CO2 [Moles/Vol] 26 mmol/L Normal 20-32 [facility] Comment on above: Order Comment: FASTI NG:YESFASTING: YES Performed By: #### 1 0165, 334, 176 #### [facility] [address], [address] [place] [address] Candle Cutter: Juan Meraz MD Creatinine [Mass/Vol] 1.71 mg/dL High 0.70-1.[address] [facility] Comment on above: Order Comment: FASTI NG:YESFASTING: YES Result Comment: For patients >49 years of age, the reference limit for Creatinine is approximately 13% higher for people identified as -Malagasy. Performed By: #### 1 0165, 492, 905 #### [facility] [address], [address] [place] [address] Candle Cutter: Juan Meraz MD eGFR NON-AFR. FRENCH 42 mL/min/1.73m2 Low > OR = 60 [facility] Comment on above: Order Comment: FASTI NG:YESFASTING: YES Performed By: #### 1 0165, 496, 905 #### [facility] [place] [address] Candle Cutter: Juan Meraz MD GFR/1.73 sq M.predicted among blacks MDRD (S/P/Bld) [Vol rate/Area] 48 mL/min/{1.73_m2} Low > OR = 60 [facility] Comment on above: Order Comment: FASTI NG:YESFASTING: YES Performed By: #### 1 0165, 496, 905 #### [facility] [place] [address] Candle Cutter: Juan Meraz MD Glucose [Mass/Vol] 186 mg/dL High 65-99 [facility] Comment on above: Order Comment: FASTI NG:YESFASTING: YES Result Comment: Fasting reference interval For someone without known diabetes, a glucose value >125 mg/dL indicates that they may have diabetes and this should be confirmed with a follow-up test. Performed By: #### 1 0165, 497, 905 #### [facility] [place] [address] Candle Cutter: Juan Meraz MD Potassium [Moles/Vol] 4.3 mmol/L Normal 3.5-5.[address] [facility] Comment on above: Order Comment: FASTI NG:YESFASTING: YES Performed By: #### 1 0165, 499, 905 #### [facility] [place] [address] Candle Cutter: Juan Meraz MD Sodium [Moles/Vol] 137 mmol/L Normal 135-146 [facility] Comment on above: Order Comment: FASTI NG:YESFASTING: YES Performed By: #### 1 0165, 496, 905 #### [facility] [address] Candle Cutter: Juan Meraz MD Urea nitrogen [Mass/Vol] 34 mg/dL High 7-25 [facility] Comment on above: Order Comment: FASTI NG:YESFASTING: YES Performed By: #### 1 0165, 496, 905 #### [facility] [place] [address] Candle Cutter: Juan Meraz MD Urea nitrogen/Creatinine [Mass ratio] 20 mg/mg Normal 6-22 [facility] Comment on above: Order Comment: FASTI NG:YESFASTING: YES Performed By: #### 1 0165, 496, 905 #### [facility] of [place] [address] Candle Cutter: Juan Meraz MD CBC (INCLUDES DIFF/PLT)on Basophils (Bld) [#/Vol] 0.026 10*3/uL Normal 0-200 [facility] Comment on above: Performed By: #### 1 0165, 496, 905 #### [facility] of [place] [address] Candle Cutter: Juan Meraz MD Basophils/100 WBC (Bld) 0.3 % Normal Q [facility] Comment on above: Performed By: #### 1 0165, 496, 905 #### [facility] [place] [address] Candle Cutter: Juan Meraz MD Eosinophils (Bld) [#/Vol] 0.202 10*3/uL Normal 15-500 [facility] Comment on above: Performed By: #### 1 0165, 496, 905 #### [facility] [place] [address] Candle Cutter: Juan Meraz MD Eosinophils/100 WBC (Bld) 2.3 % Normal [facility] Comment on above: Performed By: #### 1 0165, 496, 905 #### [place] [address] Candle Cutter: Juan Meraz MD Erythrocyte distribution width (RBC) [Ratio] 15.7 % High 11.0-15.0 [facility] Comment on above: Performed By: #### 1 016, 496, 905 #### [facility] [place] [address] Candle Cutter: Juan Meraz MD Hematocrit (Bld) [Volume fraction] 34.9 % Low 38.5-50.0 [facility] Comment on above: Performed By: #### 1 164, 496, 905 #### [facility] [place] [address] Candle Cutter: Juan Meraz MD Hemoglobin (Bld) [Mass/Vol] 10.9 g/dL Low 13.2-17.1 [facility] Comment on above: Performed By: #### 1 164, 495, 905 #### [facility] [place] [address] Candle Cutter: Juan Meraz MD Lymphocytes (Bld) [#/Vol] 0.748 10*3/uL Low 850-3900 [facility] Comment on above: Performed By: #### 1 016, 497, 905 #### [facility] [place] [address] Candle Cutter: Juan Meraz MD Lymphocytes/100 WBC (Bld) 8.5 % Normal [facility] Comment on above: Performed By: #### 1 016, 497, 905 #### [facility] [place] [address] Candle Cutter: Juan Meraz MD MCH (RBC) [Entitic mass] 25.1 pg Low 27.0-33.0 [facility] Comment on above: Performed By: #### 1 016, 494, 905 #### [facility] [place] [address] Candle Cutter: Juan Meraz MD MCHC (RBC) [Mass/Vol] 31.2 g/dL Low 32.0-36.[address] [facility] Comment on above: Performed By: #### 1 0165, 496, 905 #### [facility] [place] [address] Candle Cutter: Juan Meraz MD MCV (RBC) [Entitic vol] 80.4 fL Normal 80.0-100.0 Q [facility] Comment on above: Performed By: #### 1 0165, 496, 905 #### [facility] [place] [address] Candle Cutter: Juan Meraz MD Monocytes (Bld) [#/Vol] 0.889 10*3/uL Normal 200-950 [facility] Comment on above: Performed By: #### 1 0165, 496, 905 #### [facility] [place] [address] Candle Cutter: Juan Meraz MD Monocytes/100 WBC (Bld) 10.1 % Normal [facility] Comment on above: Performed By: #### 1 0165, 496, 905 #### [facility] [place] [address] Candle Cutter: Juan Meraz MD Neutrophils (Bld) [#/Vol] 6.934 10*3/uL Normal 4362-1481 [facility] Comment on above: Performed By: #### 1 0165, 496, 905 #### [facility] [place] [address] Candle Cutter: Juan Meraz MD Neutrophils/100 WBC (Bld) 78.8 % Normal [facility] Comment on above: Performed By: #### 1 0165, 496, 905 #### [facility] [place] [address] Candle Cutter: Juan Meraz MD Platelet mean volume (Bld) [Entitic vol] 9.9 fL Normal 7.5-12.5 [facility] Comment on above: Performed By: #### 1 0165, 496, 905 #### [facility] [place] [address] Candle Cutter: Juan Meraz MD Platelets (Bld) [#/Vol] 353 10*3/uL Normal 140-400 [facility] Comment on above: Performed By: #### 1 0165, 496, 905 #### [facility] [place] [address] Candle Cutter: Juan Meraz MD RBC (Bld) [#/Vol] 4.34 10*6/uL Normal 4.20-5.80 [facility] Comment on above: Performed By: #### 1 0165, 496, 905 #### [facility] [place] [address] Candle Cutter: Juan Meraz MD WBC (Bld) [#/Vol] 8.8 10*3/uL Normal 3.8-10.8 [facility] Comment on above: Performed By: #### 1 0165, 496, 905 #### [facility] [place] [address] Candle Cutter: Juan Meraz MD Otolaryngology Office/Clinic Noteon 01-14-2021 [...] oral caps (more content not included)... Normal [facility] Otolaryngology Office/Clinic Noteon 01-12-2021 Otolaryngology Office/Clinic [...] Dr. Freed. Previous pathology by physician in [place] about 1 year ago. PMHx of multiple [...] separately bill (more content not included)... Normal [facility] Operative Reporton Operative Report Date: January [...] URENA Manojvince Romeo 01/11/21 20:09 EDT Normal [facility] Operative Report Date: January 11, 2021 [...] well. Electronically signed by Matt URENA Chirag Romeo 01/11/21 09:28 EDT [facility] POC Glucose Randomon 021 Glucose [Mass/Vol] 211 mg/dL High 70-99 [facility] Comment on above: Performed By: #### C D:[id number] ####[place] [address] CoV2 Agon 01-10-2021 Employed in healthcare? Unknown Normal B [facility] Comment on above: Performed By: #### C D:[id number] ####[place] [address] Group care resident? Unknown Normal [facility] Comment on above: Performed By: #### C D:[id number] ####[place] [address] In ICU? No Normal [facility] Comment on above: Performed By: #### C D:[id number] ####[place] [id number] status? Not Applicable [facility] Comment on above: Performed By: #### C D:[id number] ####[place] [address] SARS-CoV-2 (COVID-19) RNA MEREDITH+probe Ql (Unsp spec) Normal Negative [facility] Comment on above: Result Comment: * [...] Negative ADDITIONAL INFORMATION: Testing performed on the [employer] 3600 using the SARS-CoV-2 Antigen test. Results are for the identification of SARS-CoV-2 nucleocapsid antigen. The WesabeS SARS-CoV-2 Antigen test can detect both viable and non-viable SARS-CoV-2 material. The WesabeS SARS-CoV-2 Antigen test performance depends on antigen [...] test results. In the [place], the WesabeS SARS-CoV-2 Antigen test is only for use under the Food and Drug Administration?s Emergency Use Authorization. HCP Fact Sheet: https://www.fda.gov/media/608317/download Patient Fact Sheet: https://www.fda.gov/media/140582/download Performed By: #### C D:[id number] ####[address] [address] SARS-CoV-2 (COVID-19) RNA MEREDITH+probe Ql (Unsp spec) Unknown Normal [facility] Comment on above: Performed By: #### C D:[id number] ####[address] [address] Symptomatic as defined by CDC? Unknown Normal [facility] Comment on above: Performed By: #### C D:[id number] ####[address] [place] [address] BASIC METABOLIC PANELon 10-0 Calcium [Mass/Vol] 9.6 mg/dL Normal 8.6-10.3 [facility] Comment on above: Performed By: #### 1 0165, 496, 905 #### [facility] [address], [address] [place] [address] Candle Cutter: Juan Meraz MD Chloride [Moles/Vol] 100 mmol/L Normal 98-110 [facility] Comment on above: Performed By: #### 1 0165, 496, 905 #### [facility] [place] [address] Candle Cutter: Juan Meraz MD CO2 [Moles/Vol] 30 mmol/L Normal 20-32 [facility] Comment on above: Performed By: #### 1 Mikie5, 496, 905 #### [facility] [address], [address] [place] [address] Candle Cutter: Juan Meraz MD Creatinine [Mass/Vol] 1.67 mg/dL High 0.70-1.[address] [facility] Comment on above: Result Comment: For patients >49 years of age, the reference limit for Creatinine is approximately 13% higher for people identified as -Malagasy. Performed By: #### 1 016, 493, 905 #### [facility] [place] [address] Candle Cutter: Juan Meraz MD eGFR NON-AFR. FRENCH 43 mL/min/1.73m2 Low > OR = 60 [facility] Comment on above: Performed By: #### 1 016, 496, 905 #### [facility] [place] [address] Candle Cutter: Juan Meraz MD GFR/1.73 sq M.predicted among blacks MDRD (S/P/Bld) [Vol rate/Area] 50 mL/min/{1.73_m2} Low > OR = 60 [facility] Comment on above: Performed By: #### 1 016, 496, 905 #### [facility] [place] [address] Candle Cutter: Juan Meraz MD Glucose [Mass/Vol] 124 mg/dL High 65-99 [facility] Comment on above: Result Comment: Fasting reference interval For someone without known diabetes, a glucose value between 100 and 125 mg/dL is consistent with prediabetes and should be confirmed with a follow-up test. Performed By: #### 1 0165, 496, 905 #### [facility] [place] [address] Candle Cutter: Juan Meraz MD Potassium [Moles/Vol] 4.7 mmol/L Normal 3.5-5.[address] [facility] [facility] Comment on above: Performed By: #### 1 016, 496, 905 #### [facility] [place] [address] Candle Cutter: Juan Meraz MD Sodium [Moles/Vol] 138 mmol/L Normal 135-146 [facility] Comment on above: Performed By: #### 1 0165, 496, 905 #### [facility] [place] [address] Candle Cutter: Juan Meraz MD Urea nitrogen [Mass/Vol] 40 mg/dL High 7-25 [facility] Comment on above: Performed By: #### 1 0165, 496, 905 #### [facility] [place] [address] Candle Cutter: Juan Meraz MD Urea nitrogen/Creatinine [Mass ratio] 24 mg/mg High 6-22 [facility] Comment on above: Performed By: #### 1 0165, 496, 905 #### [facility] [place] [address] Candle Cutter: Juan Meraz MD HEMOGLOBIN A1con 12-31-2020 HEMOGLOBIN [...] 1 0165, 496, 905 #### [facility] [address], [address] [place] [address] Candle Cutter: Juan Meraz MD Provider Letteron 12-31-2020 Provider Letter [facility] Th[facility]; Facial Plastic Surgery [address] [place], [place] [id number] P: [phone] F: [phone] Chirag Gutierrez DO, FAOCO [facility] Re: Anai [id number] Date of Visit: 01/05/2021 ATTENTION MEDICAL RECORDS: We are requesting pathology report for biopsy of left ear done within the last 2 years for patient Anai Goodman 59. Thank you, ChiragEwa [facility] Provider Letter [facility]; Facial Plastic Surgery [address] [place] [address] P: [phone] F: [phone] Chirag Gutierrez DO [facility] Re: Anai Rex1955 Date of Visit: 01/05/2021 ATTENTION MEDICAL RECORDS: We are requesting pathology report for biopsy of left ear done within the last 2 years for patient Anai Goodman. Thank you, ChiragEwa [facility] Provider Letter [facility]; Facial Plastic Surgery [address] [place] [address] P: [phone] F: [phone] Chirag Gutierrez DO, FAOCO Deon Brito [address] [place] [address] Re: Anai Goodman1955 Date of Visit: 01/05/2021 [...] prior to 01/05/21. Thank you, Muna Normal [facility] URIC ACIDon 12-31-2020 Urate [Mass/Vol] 10.3 mg/dL High 4.0-8.0 [facility] Comment on above: Order Comment: FASTI NG:YES FASTING: YES Result Comment: Ther apeutic target for gout patients: <6.0 mg/dL Performed By: #### 1 0165, 496, 905 #### [facility] [address], [address] [place] [id number] Candle Cutter: Juan Meraz MD Provider Letteron 12-17-2020 Provider Letter Deon Brito [address] [place] [address] Re: Anai Rdzlucy Date of Visit: 12/15/2020 Dear Deon Braxton, I am referring Anai to your office for care. Attached your will find my notes and impressions from our visit. Deon Braxton DO Re:Anai Goodman 1955 Date of Visit: 12/15/2020 Dear Deon Braxton DO: I had the pleasure of evaluating patient, Anai Goodman, in the [facility] clinic on 12/15/2020. Attached you will [...] our office with any questions. Sincerely, Chirag Gutierrez DO [facility] [address] [address] Let me know if you have any questions or concerns. Sincerely, Tyesha Dunne Providers: The following document(s) were included in the letter: December 15, 2020 13:30:00 EDT - (12/15/2020) Office Visit Note Normal [facility] Otolaryngology Office/Clinic Noteon 12-15-2020 Otolaryngology Office/Clinic [...] Dr. Freed. Previous pathology by physician in [place] about 1 year ago. PMHx of multiple [...] mL, 1 Refill(s), 12/18/20 14:00:00 EDT, Pharmacy: [id number] Medical Decision Making Chronic conditions NOT treated [...] 5000 intl (more content not included)... Normal [facility] Otolaryngology Office/Clinic Note Chief Complaint BCC [...] Dr. Freed. Previous pathology by physician in [place] about 1 year ago. PMHx of multiple [...] meal to (more content not included)... Normal [facility] XR ANKLE RT MIN 3 VIEWSon XR ANKLE RT MIN 3 VIEWS Normal [facility] XR FOOT RT MIN 3 VIEWSon XR FOOT RT MIN 3 VIEWS Normal [facility] XR FOOT RT MIN 3 VIEWSon XR FOOT RT MIN 3 VIEWS Normal [facility] XR FOOT RT MIN 3 VIEWSon XR FOOT RT MIN 3 VIEWS Normal [facility] Consultation Noteon 05-11-19 Consultation Note [id number]:[id number] Normal [facility] Vital Signs Date Time Vital Sign Value Performing Clinician Facility 04-12-2023 11:11050 Body height 182.9 cm Terry ESCOBEDO Work Phone: [facility] 04-12-2023 11:11050 Body mass index (BMI) [Ratio] 28.89 kg/m2 Terry ESCOBEDO Work Phone: [facility] 04-12-2023 11:11-050 Body weight 96.62 kg Terry ESCOBEDO Work Phone: [facility] 04-12-2023 11:11-050 Diastolic blood pressure 74 mm[Hg] Terry ESCOBEDO Work Phone: [facility] 04-12-2023 11:11-0500 Heart rate 74 /min Terry Lock [employer] Work Phone: [facility] 04-12-2023 11:11-0500 SaO2% (BldA) [Mass fraction] 97 % Terry Lock [employer] Work Phone: [facility] 04-12-2023 11:11-0500 Systolic blood pressure 126 mm[Hg] Terry Lock [employer] Work Phone: [facility] 12-05-2022 13:00-0400 Body height 177.8 cm Ghanshyam Kaye Other [facility] Other 12-05-2022 13:00-0400 Diastolic blood pressure 70 mm[Hg] Ghanshyam Kaye Other [facility] Other 12-05-2022 13:00-0400 SaO2% (BldA) [Mass fraction] 97 % Ghanshyam Kaye Other [facility] Other 12-05-2022 13:00-0400 Systolic blood pressure 110 mm[Hg] Ghanshyam Kaye Other [facility] Other 10-05-2022 10:00-0400 Body height 177.8 cm Dung Serna Other [facility] Other 10-05-2022 10:00-0400 Body mass index (BMI) [Ratio] 31.85 kg/m2 Dung Serna Other [facility] Other 10-05-2022 10:00-0400 Body weight 100.7 kg Dung Serna Other [facility] Other 10-05-2022 10:00-0400 Diastolic blood pressure 70 mm[Hg] Dung Serna Other [facility] Other 10-05-2022 10:00-0400 Systolic blood pressure 118 mm[Hg] Dung Serna Other [facility] Other 06-02-2022 11:00-0500 Body height 177.8 cm Reddy Brandt Other [facility] Other 06-02-2022 11:00-0500 Body mass index (BMI) [Ratio] 30.13 kg/m2 Reddy Brandt Other [facility] Other 06-02-2022 11:00-0500 Body weight 95.26 kg Reddy Brandt Other [facility] Other 03-15-2022 13:45-0500 Body height 177.8 cm Reddy Brandt Other [facility] Other 03-15-2022 13:45-0500 Body mass index (BMI) [Ratio] 30.85 kg/m2 Reddy Brandt Other [facility] Other 03-15-2022 13:45-0500 Body weight 97.52 kg Reddy Meehanley Other [facility] Other 02-07-2022 14:00-0500 Body height 177.8 cm Ghanshyam Kaye Other [facility] Other 02-07-2022 14:00-0500 Body mass index (BMI) [Ratio] 30.85 kg/m2 Ghanshyam Kaye Other [facility] Other 02-07-2022 14:00-0500 Body weight 97.52 kg Ghanshyam Kaye Other [facility] [employer] Other 02-07-2022 14:00-0500 Diastolic blood pressure 72 mm[Hg] Ghanshyam Kaye Other [facility] Other 02-07-2022 14:00-0500 SaO2% (BldA) [Mass fraction] 98 % Ghanshyam Kaye Other [facility] Other 02-07-2022 14:00-0500 Systolic blood pressure 118 mm[Hg] Ghanshyam Kaye Other [facility] Other 11-29-2021 14:35-0400 Diastolic blood pressure 78 mm[Hg] DO Deon [employer] Work Phone: [facility] 11-29-2021 14:35-0400 Heart rate 75 /min DO Sw[employer] Work Phone: [facility] 11-29-2021 14:35-0400 Respiratory rate 16 /min DO Swivlhas Work Phone: [facility] 11-29-2021 14:35-0400 SaO2% (BldA) [Mass fraction] 95 % DO Deon [employer] Work Phone: [facility] 11-29-2021 14:35-0400 Systolic blood pressure 123 mm[Hg] DO Deno [employer] Work Phone: [facility] 11-29-2021 13:39-0400 Inhaled oxygen flow rate 8 L/min DO Deon [employer] Work Phone: [facility] 11-29-2021 13:24-0400 Body temperature 98.5 [degF] DO Deon [employer] Work Phone: [facility] 11-29-2021 12:10-0400 Body height 182.88 cm DO Deon [employer] Work Phone: [facility] 11-29-2021 12:10-0400 Body mass index (BMI) [Ratio] 30.5 kg/m2 DO Deon Cordovahas Work Phone: [facility] 11-29-2021 12:10-0400 Body weight 102.05 kg DO Deon Shinhas Work Phone: [facility] 11-03-2021 10:41-0400 Diastolic blood pressure 66 mm[Hg] DO Deon Shinhas Work Phone: [facility] 11-03-2021 10:41-0400 Heart rate 78 /min DO Deon Cordovahas Work Phone: [facility] 11-03-2021 10:41-0400 Respiratory rate 16 /min DO Deon Ramoss Work Phone: [facility] 11-03-2021 10:41-0400 SaO2% (BldA) [Mass fraction] 97 % DO Deon Cordovahas Work Phone: [facility] 11-03-2021 10:41-0400 Systolic blood pressure 121 mm[Hg] DO Deon Cordovahas Work Phone: [facility] 11-03-2021 09:41-0400 Body temperature 98 [degF] DO Deon Ramoss Work Phone: [facility] 11-03-2021 09:11-0400 Inhaled oxygen flow rate 8 L/min DO Deon Cordovahas Work Phone: [facility] 11-03-2021 07:37-0400 Body height 182.88 cm DO Deon Cordovahas Work Phone: [facility] 11-03-2021 07:37-0400 Body mass index (BMI) [Ratio] 30.5 kg/m2 DO Deon Shinhas Work Phone: [facility] 11-03-2021 07:37-0400 Body weight 102.05 kg DO Deon Yuhas Work Phone: [facility] 11-01-2021 18:03-0400 Diastolic blood pressure 69 mm[Hg] DO Deon Yuhas Work Phone: [facility] 11-01-2021 18:03-0400 Heart rate 71 /min DO Deon Yuhas Work Phone: [facility] 11-01-2021 18:03-0400 Respiratory rate 16 /min DO Deon Yuhas Work Phone: [facility] 11-01-2021 18:03-0400 SaO2% (BldA) [Mass fraction] 99 % DO Deon Yuhas Work Phone: [facility] 11-01-2021 18:03-0400 Systolic blood pressure 124 mm[Hg] DO Deon Yuhas Work Phone: [facility] 11-01-2021 16:21-0400 Body height 182.88 cm DO Deon Yuhas Work Phone: [facility] 11-01-2021 16:21-0400 Body temperature 98 [degF] DO Deon Yuhas Work Phone: [facility] 11-01-2021 16:21-0400 Body weight 102.05 kg DO Deon Yuhas Work Phone: [facility] 10-31-2021 10:30-0400 Body height 177.8 cm Reddy Brandt Other [facility] [employer] Other 10-27-2021 05:00-0400 Body temperature 98.6 [degF] DO Deon Yuhas Work Phone: [facility] 10-27-2021 05:00-0400 Diastolic blood pressure 72 mm[Hg] DO Deon Yuhas Work Phone: [facility] 10-27-2021 05:00-0400 Heart rate 70 /min DO Deon Yuhas Work Phone: [facility] 10-27-2021 05:00-0400 Respiratory rate 16 /min DO Deon Yuhas Work Phone: [facility] 10-27-2021 05:00-0400 SaO2% (BldA) [Mass fraction] 98 % DO Deon Shinhas Work Phone: [facility] 10-27-2021 05:00-0400 Systolic blood pressure 132 mm[Hg] DO Deon Shinhas Work Phone: [facility] 10-24-2021 12:00-0400 Body height 182.88 cm DO Deon Cordovahas Work Phone: [facility] 10-23-2021 05:26-0400 Body weight 70.9 kg DO Deon Cordovahas Work Phone: [facility] 10-22-2021 04:14-0400 Inhaled oxygen concentration 21 % DO Deon Cordovahas Work Phone: [facility] 10-21-2021 12:00-0400 Body temperature 98.1 [degF] DO Deon Cordovahas Work Phone: [facility] 10-21-2021 12:00-0400 Diastolic blood pressure 73 mm[Hg] DO Deon Cordovahas Work Phone: [facility] 10-21-2021 12:00-0400 Heart rate 76 /min DO Deon Shinhas Work Phone: [facility] 10-21-2021 12:00-0400 Respiratory rate 18 /min DO Deon Shinhas Work Phone: [facility] 10-21-2021 12:00-0400 SaO2% (BldA) [Mass fraction] 95 % DO Deon Shinhas Work Phone: [facility] 10-21-2021 12:00-0400 Systolic blood pressure 128 mm[Hg] DO Deon Shinhas Work Phone: [facility] 10-21-2021 06:00-0400 Body weight 99.9 kg DO Deon Braxton Work Phone: [facility] 10-21-2021 02:05-0400 Inhaled oxygen concentration 21 % DO Deon Braxton Work Phone: [facility] 10-19-2021 11:00-0400 Body height 182.88 cm DO Deon Braxton Work Phone: [facility] 10-18-2021 15:37-0400 Inhaled oxygen flow rate 6 L/min DO Deon Braxton Work Phone: [facility] 10-18-2021 13:19-0400 Body mass index (BMI) [Ratio] 29.8 kg/m2 DO Deon Braxton Work Phone: [facility] 10-12-2021 10:00-0400 Body height 177.8 cm Reddy Brandt Other [facility] [employer] Other 10-12-2021 10:00-0400 Body mass index (BMI) [Ratio] 32.28 kg/m2 Reddy Karly Other [facility] Other 10-12-2021 10:00-0400 Body weight 102.06 kg Reddy Brandt Other [facility] Other 10-06-2021 14:15-0400 Body height 177.8 cm Pako Aguilar Other [facility] Other 10-06-2021 14:15-0400 Body mass index (BMI) [Ratio] 32.28 kg/m2 Pako Aguilar Other [facility] Other 10-06-2021 14:15-0400 Body temperature 97.3 [degF] Pako Aguilar Other [facility] Other 10-06-2021 14:15-0400 Body weight 102.06 kg Pako Aguilar Other [facility] Other 10-06-2021 14:15-0400 Diastolic blood pressure 73 mm[Hg] Pako Aguilar Other [facility] Other 10-06-2021 14:15-0400 Systolic blood pressure 127 mm[Hg] Pako Aguilar Other [facility] Other 09-08-2021 15:30-0400 Body height 177.8 cm Pako Aguilar Other [facility] Other 09-08-2021 15:30-0400 Body temperature 98.1 [degF] Pako Aguilar Other [facility] Other 09-08-2021 15:30-0400 Diastolic blood pressure 73 mm[Hg] Pako Aguilar Other [facility] Other 09-08-2021 15:30-0400 Systolic blood pressure 149 mm[Hg] Pako Leon Other [facility] Other Encounters Encounter Date Encounter Type Care Provider Facility Start: 06-01-2023 Refill Deon Payan Work Phone: [facility] Comment on above: Sarcoidosis with gra nulomatous hepatitis Start: 06-01-2023 Refill Deon Payan Work Phone: [facility] Comment on above: 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, with long-term current use of insulin ([facility] Start: 05-12-2023 Refill Deon Payan Work Phone: [facility] Comment on above: Pure hypercholestero lemia Med Refill Start: 04-19-2023 End: 04-19-2023 ambulatory Salina Aaron Jesus Facility:[facility] Start: 04-19-2023 End: 04-19-2023 ambulatory DO Deon Braxton Work Phone: [facility] Work Phone: Start: 04-19-2023 End: 04-19-2023 Departed Referred DO Deon Braxton Work Phone: [facility] Start: 04-13-2023 Refill Kaylene Peter CMA [facility] Comment on above: 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, with long-term current use of insulin ([facility]) Start: 04-12-2023 End: 04-12-2023 ambulatory TERRY LOCK [facility] Start: 04-12-2023 Encounter for prepro cedural cardiovascular examination [facility] Start: 04-12-2023 End: 04-12-2023 Office outpatient visit 25 minutes Terry Lock APRN-[employer] Work Phone: [facility] Comment on above: Preop cardiovascular exam (Primary Dx); Coronary artery disease involving [place] coronary artery of [place] heart without angina pectoris; Ischemic cardiomyopathy; Chronic systolic congestive heart failure ([facility] Apical mural thrombus; Essential (primary) hypertension; Cardiac defibrillator in place- [employer]; Mixed hyperlipidemia Start: 04-12-2023 End: 04-12-2023 Patient encounter status Terryraisa Lock [employer]EL[employer] Work Phone: [facility] Work Phone: Start: 04-05-2023 End: 04-06-2023 ambulatory YOVANNY CALHOUN [facility] Start: 04-03-2023 End: 04-03-2023 ambulatory Dung Serna Other [facility] Other Start: 04-03-2023 Telephone encounter Dung Serna [facility] Neurosurgery Start: 03-22-2023 End: 03-22-2023 ambulatory YOVANNY CALHOUN Not Available Start: 03-22-2023 End: 03-22-2023 ambulatory YOVANNY WILLISE Not Available Start: 03-07-2023 End: 03-07-2023 ambulatory YOVANNY CALHOUN Not Available Start: 01-11-2023 End: 01-11-2023 ambulatory Ghanshyam Kaye Other [facility] Other Start: 01-11-2023 Telephone encounter Ghanshyam Kaye [facility] Pain Management Start: 12-05-2022 End: 12-05-2022 ambulatory Ghanshyam Kaye Other [facility] Other Start: 12-05-2022 Office outpatient vi sit 15 minutes Ghanshyam Kaye [facility] Rehab and Spine Start: 10-05-2022 Office outpatient ne w 30 minutes Dung Serna [facility] Neurosurgery Start: 10-05-2022 End: 10-05-2022 ambulatory Dung Hilario Kareem [facility] Other Start: 08-02-2022 End: 08-02-2022 ambulatory Reddy Brandt Other [facility] Other Start: 08-02-2022 Office outpatient vi sit 15 minutes Reddy Brandt [facility] Start: 06-02-2022 End: 06-02-2022 ambulatory Reddy Brandt Other [facility] Other Start: 06-02-2022 Postop follow up vis it related to original px Reddy Brandt [facility] Start: 05-12-2022 End: 05-12-2022 ambulatory Reddy Brandt Other [facility] Other Start: 05-12-2022 Telephone encounter Reddy Brandt [facility] Start: 05-03-2022 End: 05-03-2022 ambulatory DO Deon Braxton Work Phone: [facility] Work Phone: Start: 05-03-2022 End: 05-03-2022 Patient encounter procedure DO Deon Braxton Work Phone: [facility]-Senior [employer] Consultant [address] Start: 04-28-2022 End: 04-28-2022 ambulatory Reddy Brandt Other [employer] Other Start: 04-28-2022 Office outpatient vi sit 15 minutes Reddy Brandt [facility] Start: 04-17-2022 End: 04-17-2022 ambulatory Reddy Brandt Other [employer] Other Start: 04-17-2022 Telephone encounter Reddy Brandt [facility] Start: 04-12-2022 End: 04-12-2022 ambulatory Reddy Brandt Other [employer] Other Start: 04-12-2022 Postop follow up vis it related to original px Reddy Brandt [facility] Start: 03-15-2022 End: 03-15-2022 ambulatory Reddy Brandt Other [employer] Other Start: 03-15-2022 Office outpatient vi sit 15 minutes Reddy Brandt [facility] Start: 02-07-2022 End: 02-07-2022 ambulatory Ghanshyam Kaye Other [employer] Other Start: 02-07-2022 Office outpatient vi sit 15 minutes Ghanshyam Kaye [facility] Start: 02-03-2022 End: 02-03-2022 ambulatory Reddy Brandt Other [employer] Other Start: 02-03-2022 Postop follow up vis it related to original px Reddy Karly [facility] Start: 01-24-2022 End: 01-24-2022 ambulatory Reddy Karly Other [employer] Other Start: 01-24-2022 Telephone encounter Reddy Gil [facility] Start: 01-20-2022 End: 01-20-2022 ambulatory Reddy Brandt Other [employer] Other Start: 01-20-2022 Postop follow up vis it related to original px Reddy Karly [facility] Start: 01-16-2022 End: 01-16-2022 ambulatory Reddy Karly Other [employer] Other Start: 01-16-2022 Telephone encounter Reddy Gil [employer] Start: 01-06-2022 End: 01-06-2022 ambulatory Reddy Brandt Other [employer] Other Start: 01-06-2022 Postop follow up vis it related to original px Reddy Karly [facility] Start: 12-23-2021 End: 12-23-2021 ambulatory Reddy Meehanley Other [employer] Other Start: 12-23-2021 Postop follow up vis it related to original px Reddy Karly [facility] Start: 12-20-2021 End: 12-20-2021 Discharged Recurring DO Deon Braxton Work Phone: [facility]-Infusion Therapy - O/P Start: 12-14-2021 End: 12-14-2021 ambulatory Reddy Meehanley Other [employer] Other Start: 12-14-2021 Postop follow up vis it related to original px Reddy Karly [facility] Start: 12-12-2021 End: 12-12-2021 ambulatory Reddy Brandt Other [facility] [employer] Other Start: 12-12-2021 Telephone encounter Reddy MOE [facility] Start: 12-09-2021 End: 12-09-2021 ambulatory Reddy Brandt Other [place] [employer] Other Start: 12-09-2021 Postop follow up vis it related to original px Reddy Brandt [facility] Start: 11-29-2021 End: 11-29-2021 Evaluation and management of inpatient DO Deon Ramoss Work Phone: [address] Start: 11-29-2021 End: 11-29-2021 Admission to same day surgery center DO [facility]uhas [facility] [place] [address] Start: 11-28-2021 End: 11-28-2021 ambulatory Reddy Brandt Other [facility] [employer] Other Start: 11-28-2021 Postop follow up vis it related to original px Reddy Brandt [facility] Start: 11-21-2021 End: 11-21-2021 ambulatory Reddy Brandt Other [facility] [employer] Other Start: 11-21-2021 Telephone encounter Reddy MOE [facility] Start: 11-03-2021 End: 11-03-2021 Admission to same day surgery center DO Deon [facility]uhas [facility] [place] [facility] Start: 11-02-2021 End: 11-02-2021 ambulatory Reddy Brandt Other [place] [employer] Other Start: 11-02-2021 Postop follow up vis it related to original px Reddy rBandt [facility] Start: 11-02-2021 End: 11-02-2021 Patient encounter procedure DO Deon Yuhas Work Phone: [facility]-Pre-Surgical Testing Start: 11-01-2021 End: 11-01-2021 Emergency department patient visit DO Deon Braxton Work Phone: [facility]-Emergency Room Start: 11-01-2021 End: 11-01-2021 ambulatory Reddy Brandt Other [employer] Other Start: 11-01-2021 Telephone encounter Reddy Brandt [facility] Start: 10-31-2021 End: 10-31-2021 ambulatory Reddy Brandt Other [employer] Other Start: 10-31-2021 Postop follow up vis it related to original px Reddy Brandt [facility] Start: 10-21-2021 End: 10-27-2021 Evaluation and management of inpatient DO Deon Braxton Work Phone: [facility] Start: 10-18-2021 End: 10-21-2021 Evaluation and management of inpatient DO Deon Braxton Work Phone: [facility] Start: 10-14-2021 End: 10-14-2021 Patient encounter procedure DO Deon Braxton Work Phone: [facility]-Pre-Surgical Testing Start: 10-12-2021 End: 10-12-2021 ambulatory Reddy Brandt Other [place] [employer] Other Start: 10-12-2021 Office outpatient vi sit 25 minutes Reddy Brandt [facility] Start: 10-10-2021 End: 10-10-2021 Patient encounter procedure DO Deon Braxton Work Phone: [facility]-MRI [address] Start: 10-06-2021 End: 10-06-2021 Patient encounter procedure DO Deon Braxton Work Phone: [facility]-Lab [address] Start: 10-06-2021 End: 10-06-2021 ambulatory Reddy Brandt Other [employer] Other Start: 10-06-2021 Office outpatient vi sit 25 minutes Pako Aguilar [facility] Start: 10-06-2021 Telephone encounter [facility] Start: 09-29-2021 End: 09-29-2021 Patient encounter procedure DO Deon Shindonna Work Phone: [facility]-Pacemaker Check Start: 09-26-2021 End: 09-26-2021 ambulatory Reddy Brandt Other [employer] Other Start: 09-26-2021 Telephone encounter [facility] Start: 09-21-2021 End: 09-21-2021 Patient encounter procedure DO Deon Braxton Work Phone: [facility] Start: 09-21-2021 ambulatory SALINA LEE Faci lity:H1 Start: 09-09-2021 End: 09-10-[address] DEON BRAXTON Facility:H1 Start: 09-09-2021 End: 09-10-2021 ambulatory SALINA LEE Facility:[facility]1 Start: 09-08-2021 End: 09-08-2021 ambulatory Pako Aguilar Other [employer] Other Start: 09-08-2021 Office outpatient vi sit [...] SALINA LEE Facility:[facility]1 Start: 02-28-2021 ambulatory DEON BRAXTON [facility] lity:[facility] Start: 02-23-2021 End: 02-24-2021 ambulatory SALINA LEE Facility:H1 Start: 02-22-2021 ambulatory [facility] SRINIVAS BRAXTON [facility] Start: 02-17-2021 End: 02-18-2021 ambulatory SALINA LEE Facility:H1 Start: 02-09-2021 Encounter for prepro cedural laboratory examination SALINA LEE [facility] Start: 02-08-2021 End: 02-12-2021 Evaluation and management of inpatient SHAIKH Akiko WEBSTERSHENA Facility:H1 Start: 02-05-2021 End: 02-05-2021 ambulatory DONALD [...] End: 01-11-2021 ambulatory DEON BRAXTON Facility:[facility] Start: 01-10-2021 End: 01-11-2021 ambulatory DEON BRAXTON Facility:[facility] Start: 12-08-2020 End: 12-09-[address] EDON BRAXTON Facility:H1 Start: 12-03-2020 End: 12-04-[address] DEON BRAXTON Facility:[facility]1 Start: 11-29-2020 End: 11-30-2020 ambulatory SALINA LEE Facility:[facility]1 Start: 11-25-2020 End: 11-26-2020 ambulatory SALINA [facility] Facility:[facility] Start: 11-22-2020 End: 11-23-2020 ambulatory BALJEET LEONG Facility:H1 Start: 11-18-2020 End: 11-19-2020 ambulatory BALJEET LEONG Facility:H1 Start: 11-11-2020 End: 11-12-2020 ambulatory BALJEET LEONG Facility:H1 Start: 11-04-2020 End: 11-05-2020 ambulatory SALINA LEE Facility:H1 Procedures Date Procedure Procedure Detail Performing Clinician Start: 05-24-2023 Diabetic retinal eye exam Deon Braxton DO Work Phone: Start: 04-12-2023 Ecg routine ecg w/le ast 12 lds w/i&r Terry Lock APRN-[employer] Work Phone: Start: 03-22-2023 Adult depression scr eening assessment Terry Lock CORPORATE DEVELOPMENT INTERN-[employer] Work Phone: Start: 12-29-2022 Diabetic retinal eye exam Terry Lock CORPORATE DEVELOPMENT INTERN[employer] Work Phone: Start: 10-26-2022 Microalbumin [Mass/v olume] in Urine by Test strip Terry Lock CORPORATE DEVELOPMENT INTERN[employer] Work Phone: Start: 11-29-2021 Incision and drainag [...] with Internal Fixation Device, Open Approach DELONG [facility] Start: 02-11-2021 Introduction of Othe r Anti-infective into Joints, Open Approach DELONG [facility] Start: 02-11-2021 Removal of Spacer fr om Right Ankle Joint, Percutaneous Approach [facility] Start: 02-08-2021 Excision of Right Fi bula, Open Approach DELONG [facility] Start: 02-08-2021 Introduction of Othe r Anti-infective into Joints, Open Approach DELONG [facility] Start: 02-08-2021 Removal of Internal Fixation Device from Right Ankle Joint, Open Approach [facility] Aerobic microbial culture DO Deon Braxton Work Phone: Anaerobic microbial culture DO Deon Braxton Work Phone: History of amputatio n of foot Pako Leon Other Investigation of transfusion reaction DO Deon Braxton Work Phone: SARS-CoV-2, Influenz a & RSV (PCR) DO Deon Braxton Work Phone: Plan of Treatment Date Care Activity Detail Author Start: 01-13-2026 DTaP,Tdap and Td Vaccines (2 - Td or Tdap) DTaP,Tdap and Td Vaccines (2 - Td or Tdap) [facility] Start: 05-24-2024 Glaucoma screening Diabetic Ophthalmology Exam [facility] Start: 04-12-2024 Adult BMI Screening Adult BMI Screening [facility] Start: 04-12-2024 Tobacco Screening Tobacco Screening [facility] Start: 03-22-2024 Depression Screening Depression Screening [facility] Start: 03-22-2024 Fall Risk Screening Fall Risk Screening [facility] Start: 12-30-2023 Glaucoma screening Diabetic Ophthalmology Exam [facility] Start: 11-29-2023 End: 11-29-2023 Patient encounter procedure 11/29/2023 9:00 AM EDT Office Visit [facility] [address] [place] [address] [facility] Start: 11-24-2023 Medicare Annual Wellness Visit Medicare Annual Wellness Visit [facility] Start: 10-27-2023 Diabetic foot examination Diabetic Foot Exam [facility] Start: 10-27-2023 Urine screening for protein Urine Microalbumin [facility] Start: 11-29-2021 [facility] Start: 11-29-2021 [facility] Start: 11-29-2021 Incision and drainage of lower extremity OR I&D Exploration Upper/Lower Extremity (Right) [facility] Start: 11-29-2021 End: 11-29-2021 Admission to same day surgery center Below knee amputation [facility] [address] Start: 11-03-2021 [facility] Start: 11-03-2021 [facility] Start: 11-03-2021 Amputation of right lower limb OR Leg Amputation Above/Below (Right) [facility] Start: 11-03-2021 End: 11-03-2021 Admission to same day surgery center Departed Surgical Day Care [facility] [address] Start: 11-02-2021 End: 11-02-2021 Patient encounter procedure Departed Clinical [facility]-Pre-Surgical Testing Start: 11-01-2021 End: 11-01-2021 Emergency department patient visit Departed Emergency [facility]-Emergency Room Start: 10-27-2021 [facility] Work Phone: Start: 10-21-2021 Hospital admission [facility] Work Phone: Start: 10-21-2021 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 [facility] Work Phone: Start: 10-21-2021 [facility] Work Phone: Start: 10-18-2021 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 [facility] Work Phone: Start: 10-18-2021 Detachment at Right Lower Leg, Mid, Open Approach Detachment at Right Lower Leg, Mid, Open Approach [facility] Start: 10-17-2021 [facility] Work Phone: Start: 10-14-1975 Adult BMI Follow Up Plan Adult BMI Follow Up Plan [facility] Patient Education [facility] Work Phone: Patient referral [facility] Work Phone: SARS-CoV-2 (COVID-19 ) N gene [Presence] in Respiratory specimen by MEREDITH with probe detection [facility] Work Phone: Immunizations Immunization Date Immunization Notes Care Provider Fa cili 03-12-2023 Covid-19,mrna, Lnp-s , Pf, 50mcg/0.5ml 12+ Terry Lock CORPORATE DEVELOPMENT INTERN[employer] Work Phone: [facility] 03-12-2023 Influenza Vaccine, Quadrivalent, Adjuvanted Terry Lock CORPORATE DEVELOPMENT INTERN[employer] Work Phone: [facility] 03-12-2023 RSV, mAb, nirsevimab-alip, 1 mL, to 24 months Terry Lock CORPORATE DEVELOPMENT INTERN[employer] Work Phone: [facility] 03-12-2023 RSV, recombinant, protein subunit RSVpreF, adjuvant reconstituted, 0.5 mL, PF Terry Lock CORPORATE DEVELOPMENT INTERN[employer] Work Phone: [facility] 06-14-2022 zoster vaccine recombinant Terry Lock CORPORATE DEVELOPMENT INTERN[employer] Work Phone: [facility] 04-15-2022 Covid-19, Mrna, Lnp- s, Bivalent, Pf, 50mcg/0.5ml or 25mcg/0.25ml Terry Lock CORPORATE DEVELOPMENT INTERN[employer] Work Phone: [facility] 04-15-2022 zoster vaccine recombinant Terry Lock CORPORATE DEVELOPMENT INTERN[employer] Work Phone: [facility] 04-11-2022 Influenza, High-dose , Quadrivalent Terry Lock CORPORATE DEVELOPMENT INTERN[employer] Work Phone: [facility] 03-01-2021 COVID-19 mRNA-1273 (Moderna) DO Deon [email or web address] Work Phone: [facility] 03-01-2021 Seasonal, quadrivale nt, recombinant, injectable influenza vaccine, preservative free Terry Lock CORPORATE DEVELOPMENT INTERN[employer] Work Phone: [facility] 06-25-2020 COVID-19 mRNA-1273 (Moderna) DO Deon [email or web address] Work Phone: [facility] 05-28-2020 COVID-19, mRNA, LNP- S, PF, 100mcg/0.5mL Dose Terry Lock CORPORATE DEVELOPMENT INTERN[employer] Work Phone: [facility] 05-25-2020 COVID-19, mRNA, LNP- S, PF, 100mcg/0.5mL Dose Terry Lock CORPORATE DEVELOPMENT INTERN[employer] Work Phone: [facility] 01-14-2020 influenza, seasonal, injectable Terry Leo CORPORATE DEVELOPMENT INTERN[employer] Work Phone: [facility] 12-30-2019 influenza, injectabl e, quadrivalent, preservative free Terry Leo CORPORATE DEVELOPMENT INTERN[employer] Work Phone: [facility] 04-07-2019 Influenza, injectabl e, Madin Eunice Canine Kidney, preservative free, quadrivalent Terry Leo CORPORATE DEVELOPMENT INTERN[employer] Work Phone: [facility] 12-31-2018 pneumococcal conjuga te vaccine, 13 valent Terry Leo CORPORATE DEVELOPMENT INTERN[employer] Work Phone: [facility] 01-23-2018 influenza, injectabl e, quadrivalent, contains preservative Terry Leo CORPORATE DEVELOPMENT INTERN[employer] Work Phone: [facility] 01-23-2018 influenza, injectabl e, quadrivalent, preservative free Terry Leo CORPORATE DEVELOPMENT INTERN[employer] Work Phone: [facility] 02-05-2017 influenza, injectabl e, quadrivalent, preservative free Terry Leo CORPORATE DEVELOPMENT INTERN[employer] Work Phone: [facility] 02-05-2017 pneumococcal conjuga te vaccine, 13 valent Terryraisa Lock CORPORATE DEVELOPMENT INTERN[employer] Work Phone: [facility] 01-14-2017 influenza, injectabl e, quadrivalent, contains preservative Terry Leo CORPORATE DEVELOPMENT INTERN[employer] Work Phone: [facility] 01-14-2016 tetanus toxoid, redu joseph diphtheria toxoid, and acellular pertussis vaccine, adsorbed Terryraisa Lock CORPORATE DEVELOPMENT INTERN[employer] Work Phone: [facility] 01-02-2016 influenza virus vacc ine, unspecified formulation Terry Lock CORPORATE DEVELOPMENT INTERN[employer] Work Phone: [facility] 08-13-2015 zoster vaccine, live Terry Lock CORPORATE DEVELOPMENT INTERN[employer] Work Phone: [facility] 12-22-2014 influenza, seasonal, injectable, preservative free Terry Lock CORPORATE DEVELOPMENT INTERN[employer] Work Phone: [facility] 01-26-2014 pneumococcal conjuga te vaccine, 13 valent Terry Lock CORPORATE DEVELOPMENT INTERN[employer] Work Phone: [facility] 01-12-2014 influenza, seasonal, injectable Terry Lock CORPORATE DEVELOPMENT INTERN[employer] Work Phone: [facility] 01-12-2014 Seasonal trivalent influenza vaccine, adjuvanted, preservative free Terry Lock CORPORATE DEVELOPMENT INTERN[employer] [facility]2012 pneumococcal polysaccharide vaccine, 23 valent Terry Lock CORPORATE DEVELOPMENT INTERN[employer] [facility] 09-17-2012 pneumococcal vaccine , unspecified formulation Terry Lock CORPORATE DEVELOPMENT INTERN-[employer] Work Phone: [facility] Payers Date Payer Category Payer Medicare [id number] 2023 Medicare ANTHEM MEDICARE ANTHEM MEDICARE ADVANTAGE [id number] 2023-[facility] [phone] [address] [place] [address] [id number]. [id number] 2022 Self-pay [id number] 2022 Medicare [id number] 2021 Unknown 1959 Medicare [id number] [id number] 1957 Unknown [id number] 2.840.1.805598.3.579.2.196 1957 Unknown [id number] 2.840.1.855754.3.579.2.196 1957 Unknown [id number] 2.840.1.345153.3.579.2.196 1957 Unknown [id number] 2.16840.1.228768.3.579.2.196 1957 Unknown [id number] 2.840.1.405754.3.579.2.593 1957 Unknown [id number] 2.840.1.572439.3.579.2.593 1957 Unknown [id number] 2.16.840.1.574198.3.579.2.593 1957 Unknown [id number] 2.16.840.1.711165.3.579.2.593 1957 Unknown [id number] 2.16.840.1.509039.3.579.2.593 1957 Unknown [id number] 2.16.840.1.243278.3.579.2.59 1957 Unknown [id number] 2.16.840.1.874904.3.579.2.59 1957 Unknown [id number] 2.16.840.1.232669.3.579.2.593 1957 Unknown [id number] 2.16.840.1.566013.3.579.2.59 1957 Unknown [id number] 2.16.840.1.364251.3.579.2.593 1957 Unknown [id number] 2.16.840.1.042612.3.579.2.593 1957 Unknown [id number] 2.16.840.1.697990.3.579.2.593 1957 Unknown [id number] 2.16.840.1.846948.3.579.2.593 1957 Unknown [id number] 2.16.840.1.102790.3.579.2.593 1957 Unknown [id number] 2.16.840.1.271929.3.579.2.593 1957 Unknown [id number] 2.16.840.1.008705.3.579.2.593 1957 Unknown [id number] 2.16.840.1.512113.3.579.2.593 1957 Unknown [id number] 2.16.840.1.712028.3.579.2.593 1957 Unknown [id number] 2.16.840.1.052347.3.579.2.593 1957 Unknown [id number] 2.16.840.1.027221.3.579.2.593 1957 Unknown [id number] 2.16.840.1.973834.3.579.2.59 1957 Unknown [id number] 2.16.840.1.348200.3.579.2.59 1957 Unknown [id number] 2.16.840.1.853544.3.579.2. 1957 Unknown [id number] 2.16.840.1.205161.3.579.2. 1957 Unknown [id number] 2.16.840.1.060789.3.579.2. 1957 Unknown [id number] 2.16.840.1.630047.3.579.2. 1957 Unknown [id number] 2.16.840.1.264249.3.579.2. 1957 Unknown [id number] 2.16.840.1.496085.3.579.2. 1957 Unknown [id number] 2.16.840.1.550267.3.579.2. 1957 Unknown [id number] 2.16.840.1.801058.3.579.2.59 1957 Unknown [id number] 2.16.840.1.328140.3.579.2.59 1957 Unknown [id number] 2.16.840.1.552578.3.579.2.59 1957 Unknown [id number] 2.16.840.1.169480.3.579.2.593 1957 Unknown [id number] 2.16.840.1.214616.3.579.2.593 1957 Unknown [id number] 2.16.840.1.658547.3.579.2.593 1957 Unknown [id number] 2.16.840.1.466344.3.579.2.593 1957 Unknown [id number] 2.16.840.1.133210.3.579.2.593 1957 Unknown [id number] 2.16.840.1.910215.3.579.2.59 1957 Unknown [id number] 2.16.840.1.828803.3.579.2.593 1957 Unknown [id number] 2.16.840.1.794263.3.579.2. 1957 Unknown [id number] 2.16.840.1.958180.3.579.2.593 1957 Unknown [id number] 2.16.840.1.198635.3.579.2.59 1957 Unknown [id number] 2.16.840.1.449595.3.579.2.593 1957 Unknown [id number] 2.16.840.1.500764.3.579.2.593 1957 Unknown [id number] 2.16.840.1.354875.3.579.2.593 1957 Unknown [id number] 2.16.840.1.357081.3.579.2.593 1957 Unknown [id number] 2.16.840.1.231139.3.579.2.593 1957 Unknown [id number] 2.16.840.1.085774.3.579.2.59 1957 Unknown [id number] 2.16.840.1.225276.3.579.2.593 1957 Unknown [id number] 2.16.840.1.249254.3.579.2.593 1957 Unknown [id number] 2.16.840.1.984303.3.579.2.593 1957 Unknown [id number] 2.16.840.1.804732.3.579.2.593 1957 Unknown [id number] 2.16.840.1.668335.3.579.2.593 1957 Unknown [id number] 2.16.840.1.988577.3.579.2.593 1957 Unknown [id number] 2.16.840.1.221077.3.579.2.593 1957 Unknown [id number] 2.16.840.1.459504.3.579.2.593 1957 Unknown [id number] 2.16.840.1.179579.3.579.2.593 1957 Unknown [id number] 2.16.840.1.460895.3.579.2.593 1957 Unknown [id number] 2.16.840.1.128647.3.579.2.1259 1957 Unknown [id number] 2.16.840.1.339029.3.579.2.1259 1957 Unknown [id number] 2.16.840.1.481138.3.579.2.1259 1957 Unknown [id number] 2.16.840.1.598913.3.579.2.1286 1957 Unknown [id number] 2.16.840.1.570752.3.579.2.1286 Unknown [facility] [id number] Unknown [facility] [id number] Unknown [id number] 2.16.840.1.270862.3.579.2.531 Unknown [id number] 2.16.840.1.699643.3.579.2.531 Social History Date Type Detail Facility Unknown if ever smoked [employer] Other Start: 04-11-2022 End: 04-12-2023 Sex Assigned At [facility] [employer] [facility] Start: 10-19-2021 End: 01-18-2022 Tobacco smoking status NHIS Never smoked tobacco (finding) [facility] Start: 1955 Sex Assigned At Male [facility] Start: 01-18-2022 Tobacco use and exposure Smokeless tobacco non-user [facility] Start: 04-12-2023 Alcohol intake Current drinker of alcohol (finding) [facility] Start: 04-11-2022 End: 04-12-2023 History of Social function [facility] Do you belong to any clubs or organizations such as presybeterian groups, unions, fraternal or athletic groups, or school groups? No [facility] Are you now , , , , never or living with a partner? [facility] How often to you hav e a drink containing alcohol? 2-4 times a month [facility] How many standard dr inks containing alcohol do you have on a typical day? 1 or 2 [facility] How often do you hav e 6 or more drinks on 1 occasion? Never [facility] How hard is it for y ou to pay for the very basics like food, housing, medical care, and heating Somewhat hard [facility] Adolescent depressio n screening assessment 0 [facility] Do you feel stress - tense, restless, nervous, or anxious, or unable to sleep at night because your mind is troubled all the time - these days [OSQ] Not at all [facility] Start: 04-11-2022 Education 21 [employer] [facility] [employer] Start: 09-10-2019 Alcohol Comment social [facility] Start: 1955 Sex Assigned At Not on file [employer] [facility] Medical Equipment Procedure Code Equipment Code Equipment Origin al Text Equipment Identifier Dates Gft Hmn Tiss 250 mg Amniofill - [id number] - [id number] Start: 12-27-2018 Gft Sft Tis Matr istem - [id number] - [id number] Start: 01-27-2019 Tiss Grafix Prim e 3x4cm - [id number] - [id number] Start: 09-15-2019 Evera Mri Xt Vr Defibrillator [id number] Start: 07-13-2015 Sprint Quattro S ecure Mri [id number] Start: 07-13-2015 Tissue Epifix 2x 4 Cm - [id number] - [id number] Start: 12-27-2018 USE DIRECTED FOUR TIMES DAILY [id number] Start: 08-07-2022 Goals Date Patient Goal Desired Activity /State Personal health goal Comment on above: Formatting of this n ote might be different from the original. Evaluation of progress towards goal: Safe dc transition from hospital to home with family support. Resume with [facility]. Personal health goal Comment on above: Formatting of this n ote might be different from the original. Evaluation of progress towards goal: Pt plans to discharge home with [facility]. Functional Status Date Assessment Result Facility 10-27-2021 Functional status Patient is Pro gressing Toward Baseline [facility] Work Phone: 10-21-2021 Functional status Patient is Pro gressing Toward Baseline [facility] Work Phone: 10-18-2021 Functional status Patient at Baseline [facility] Work Phone: Mental Status Date Assessment Result Facility 10-27-2021 Cognitive function Cognitive Sta tus Patient at Baseline [facility] Work Phone: 10-21-2021 Cognitive function Cognitive Sta tus Patient is Progressing Toward Baseline [facility] Work Phone: 10-18-2021 Cognitive function Cognitive Sta tus Patient at Baseline [facility] Work Phone: Clinical Notes 01-05-2021 to 04-12-2023 Terry Lock, CORPORATE DEVELOPMENT INTERN-[employer] - 04/12/2023 11:30 AM Sue High, VICE PRESIDENT NETWORK DEVELOPMENT - 04/12/2023 11:30 AM EST Note Date & Type Note Facility 04-12-2023 History of Present illness Narrative Anai Goodman Date of visit: 04/12/2023 Date of : 1955 Age: 67 y.o. Patient Active Problem List Diagnosis Cardiac defibrillator in place- [employer]tr[employer] Essential (primary) hypertension Apical mural thrombus Ischemic cardiomyopathy Hyperlipemia Type 2 diabetes mellitus with diabetic neuropathic arthropathy, with long-term current use of insulin ([facility] Chronic systolic congestive heart failure ([facility]) Coronary artery disease involving [place] coronary artery of [place] heart without angina pectoris Hearing loss Personal history of colonic polyps Colon polyps Diverticulosis large intestine w/o perforation or abscess w/o bleeding Chronic obstructive pulmonary disease ([facility]) 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 Gastroesophageal reflux disease with esophagitis without hemorrhage Stage 3b chronic kidney disease ([facility]) Subepithelial esophageal mass Sarcoidosis Diabetic retinopathy ([facility]) Obstructive sleep apnea syndrome Diabetic neuropathy ([facility]) Bilateral sensorineural hearing loss Unilateral complete AKA, right ([facility]) Allergies Allergen Reactions Doxycycline Other reaction(s): Chest Pain Levofloxacin Other reaction(s): Chest Pain Chlorpheniramine Dextromethorphan Hbr Itching Blcavunrs-Mg-Qmpvgsabnhwvv Guaifenesin Other reaction(s): Itching of skin Hydrocodone [...] involving left anterior descending (LAD) coronary artery ([facility]) 05/28/2015 Hyperlipidemia Interstitial lung disease ([facility]) Left ventricular failure ([facility]) MRSA (methicillin resistant staph aureus) culture positive Peptic ulceration Presence of automatic (implantable) cardiac defibrillator ST elevation (STEMI) myocardial infarction ([facility]) 2014 x 5 stents Stage 3b chronic kidney disease ([facility]) 04/22/2020 Unilateral complete AKA, right ([facility]) 03/31/2022 No data recorded No data recorded No data recorded Past Surgical History: Procedure Laterality Date ANKLE LIGAMENT RECONSTRUCTION Right 2020 APPLICATION AMNIOFILL Right 12/27/2018 Performed by Arlen Olguin DPM at [facility] APPLICATION WOUND VAC ( NOT done) Right 01/27/2019 Performed by Terry Hector DPM at [facility] CARDIAC DEFIBRILLATOR PLACEMENT 07/13/2015 [employer] COLONOSCOPY N/A 04/07/2020 Performed by Deon Braxton DO at [facility] DEBRIDEMENT FOOT EXCISION RT FOOT ULCER, APPLICATION BIOLOGIC SKIN GRAFT RT FOOT, APPLICATION OF WOUND VAC RT FOOT Right 01/27/2019 Performed by Terry Hector DPM at [facility] DEBRIDEMENT FOOT WITH APPLICATION OF GRAFIX Right 09/15/2019 Performed by Terry Hector DPM at [facility] ESOPHAGOGASTRODUODENOSCOPY N/A 05/19/2020 Performed by Deon Braxton DO at [facility] EXCISION 5TH METATARSAL Right 12/30/2018 Performed by Terry Hector DPM at [facility] FINGER SURGERY FOOT SURGERY 07/2020 [facility] Bilateral LAPAROSCOPIC CHOLECYSTECTOMY N/A 06/21/2020 Performed by Deon Justice MD at [facility] LENGTHENING TENDON RIGHT, PLANTAR FASCIOTOMY Right 09/15/2019 Performed by Terry Hector DPM at [facility] SKIN GRAFT LOWER EXTREMITY (APPLICATION OF BIOLOGIC SKIN GRAFT RT FOOT Right 01/27/2019 Performed by Terry Hector DPM at [facility] Family History Problem Relation Age [...] min Stress: No Stress Concern Present (04/11/2022) [employer] - Occupational Stress Questionnaire Feeling of Stress : Not at all Social Connections: Moderately Integrated (04/11/2022) Social Connection and Isolation Panel [NHANES] Frequency of Communication with Friends and Family: Twice a week Frequency of Social Gatherings with Friends and Family: Twice a week Attends Je[employer] Services: 1 to 4 times per year [...] Verbalized understanding 2. Coronary artery disease involving [place] coronary artery of [place] heart without angina pectoris -aspirin, statin, beta-doreen [...] Referring Physician: Deon Braxton DO [address] [place] [address] FANNY Owens 04/12/23 1145 Office note faxed to Dr Lee for clearance [facility] Evaluation note Encounter Date Diagnosis Assessment Notes Dec, Charcot foot due to diabetes mellitus (ICD-10 - E11.610) Dec, Status post transmetatarsal amputation of left foot (ICD-10 - Z89.432) as above, RX written. Dec, Hx of right BKA (ICD-10 - Z89.511) [facility] Other 07-06-2023 Evaluation note* Encounter Date Diagnosis [...] months. Sep, Peripheral polyneuropathy (ICD-10 - G62.9) [facility] Other 05-03-2023 Evaluation note* Encounter Date Diagnosis [...] elsewhere classified, subsequent encounter (ICD-10 - T81.31XD) [facility] Other 03-03-2023 Evaluation note* Encounter Date Diagnosis [...] this time. Patient is following up at [facility] for changes to prosthetic. I did recommend use of a cane to help offload some weight which may reduce his pain. Patient voiced understanding and states no further questions at this time. May, Other specified postprocedural states (ICD-10 - Z98.890) May, Postoperative wound dehiscence, initial encounter (ICD-10 - T81.31XA) [facility] Other 01-27-2023 Evaluation note* Encounter Date Diagnosis [...] wound dehiscence, initial encounter (ICD-10 - T81.31XA) [facility] Other 01-11-2023 Evaluation note* Encounter Date Diagnosis [...] wound dehiscence, initial encounter (ICD-10 - T81.31XA) [facility] Other 12-14-2022 Evaluation note* Encounter Date Diagnosis [...] wound dehiscence, initial encounter (ICD-10 - T81.31XA) [facility] Other 11-08-2022 Evaluation note* Encounter Date Diagnosis Assessment Notes Treatment Notes Treatment Clinical Notes Jan, Right below-knee amputee (ICD-10 - Z89.511) Proceed with K3 level, transtibial prosthesis, preparatory. Diligent monitoring of residual limb. Stop wearing prosthesis immediately if wound should worsen, develop erythema, increased pain, etc. Wearing schedule. [facility] Other 11-04-2022 Evaluation note* Encounter Date Diagnosis [...] wound dehiscence, initial encounter (ICD-10 - T81.31XA) [facility] Other 10-21-2022 Evaluation note* Encounter Date Diagnosis [...] wound dehiscence, initial encounter (ICD-10 - T81.31XA) [facility] Other 10-07-2022 Evaluation note* Encounter Date Diagnosis [...] wound dehiscence, initial encounter (ICD-10 - T81.31XA) [facility] Other 09-23-2022 Evaluation note* Encounter Date Diagnosis [...] wound dehiscence, initial encounter (ICD-10 - T81.31XA) [facility] Other 09-14-2022 Evaluation note* Encounter Date Diagnosis [...] wound dehiscence, initial encounter (ICD-10 - T81.31XA) [facility] Other 09-09-2022 Evaluation note* Encounter Date Diagnosis [...] infectious disease. Faxed wound center information to [phone] and left a voicemail. Dec, Other specified postprocedural states (ICD-10 - Z98.890) Dec, Postoperative wound dehiscence, initial encounter (ICD-10 - T81.31XA) [facility] Other 08-30-2022 History and physical note Author Reddy Brandt [facility] November 29, 2021 11:49am Note Date/Time November 29, 2021 11 :32am [facility] [address] [place] [address] Orthopedic Surgery H&P Signed Patient: Anai Goodman MR#: [id number] : 1955 Acct:[id number] Age/Sex: 66 / M Adm Date: 08/30/2 2 Loc: [place] Room: Type: [facility] Attending Dr: Reddy Brandt DO [...] DAILY PRN asthma 30 days #1 ea 07/28/22 [Rx Confirmed 11/29/21] allopurinol 100 mg tablet [...] wound closure problems and infection were discussed. Gisesll-operative risks including infection, bleeding, wound healing problems, [...] poor healing. 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 I have advised to follow all post-operative instructions in order to obtain the best outcome. Informed consent has been verbally affirmed and signed as indicated. Documented By: Reddy Brandt DO 11/29/21 112 Signed By: <Electronically signed by Reddy Brandt DO> 11/29/21 1148 [facility] Work Phone: 1(184) 163-739908-29-2022 Evaluation note* Encounter Date Diagnosis Assessment Notes [...] remova l of sutures (ICD-10 - Z48.02) [facility] Other 08-03-2022 Evaluation note* Encounter Date Diagnosis [...] was in understanding and wishes to proceed. [facility] Other 08-01-2022 Evaluation note* Encounter Date Diagnosis [...] move forward with treatment at this time. [facility] Other 07-27-2022 Progress note Author Ghanshyam Kaye [facility] October 25, 2021 11:37pm Note Date/Time October 25, 2021 11:3 7pm [facility] [address] [place] [address] Physiatry(Rehab) Progress Note Signed Patient: Anai Goodman MR#: [id number] : 1955 Acct:[id number] Age/Sex: 66 / M Adm Date: 2 Loc: Room: 1X5803-4 Type : ADM IN Attending Dr: Ghanshyam Kaye MD Copies to: ~ Date of Service: 10/25/2021 Subjective Subjective Narrative: Mr. Goodman is a 66 year old male who is admitted to [facility] inpatient rehab for strengthening s/p planned right BKA. Patient's past medical history significant for DM type II, CAD, NM, s/p pacemaker/defibrillator insertion, CKD, osteomyelitis of the [...] % (Auto) 69.1 Lymph % (Auto) 9.4 Jerauld % (Auto) 14.5 Eos % (Auto) 6.7 Baso % (Auto) 0.3 Neut # (Auto) 4.0 Lymph # (Auto) 0.5 L Jerauld # (Auto) 0.8 Eos # (Auto) 0.4 [...] MPV Neut % (Auto) Lymph % (Auto) Jerauld % (Auto) Eos % (Auto) Baso % (Auto) Neut # (Auto) Lymph # (Auto) Jerauld # (Auto) Eos # (Auto) Baso # [...] Tablet PO 10/21/22 21:59 100 mg QHS [facility] Administration Atorvastatin Calcium 80 mg 10/22/21 09:00 10/25/21 08:07 Atorvastatin 80 Mg Tablet PO 10/22/22 08:59 80 mg QAM [facility] Administration Bisacodyl 10 mg 10/21/21 17:51 Bisacodyl 10 Mg Supp.Rect SC 10/21/22 17:50 DAILY PRN Constipation Bumetanide 1 [...] 17:51 Docusate Enema 283 Mg/5 Ml Enema SC 10/21/22 17:50 DAILY PRN Constipation Insulin Aspart 0 units 10/21/21 17:00 10/25/21 20:27 Insulin Aspart 300 Units/3 Ml Insuln.Pen SUBCUT 10/21/22 16:59 7 units TID.WM.[facility] Administration Protocol Insulin Aspart 0 units 10/21/21 17:00 10/25/21 20:30 Insulin Aspart 300 Units/3 Ml Insuln.Pen SUBCUT 10/21/22 16:59 Not Given TID.WITH.MEALS.[facility] Protocol Insulin Detemir 40 units 10/21/21 22:00 10/25/21 20:28 Insulin Detemir 300 Units/3 Ml Insuln.Pen SUBCUT 10/21/22 21:59 [facility] Administration Lactulose 30 gm 10/21/21 [...] equipment to enhance the patient's a functional restorationist Ensure adequate nutrition and hydration Sleep: Denies any issues Pain: Denies any issues Discharge planning: Home with in 7 to 10 days. I spent greater than 25 minutes for services, including jqrv-cz-spft encounter with the patient, discussion of the case, plan of care, and exam; and eckchzq-ej-kvrk activities, such as reviewing pertinent exchange underwriting consultant documentation, recent therapy notes, laboratory and radiology studies, and discussionof case with care team including nursing, case reviewer, and therapists. More than 50 % of time was spent on patient/family counseling or coordination ofcare. Documented By: Ghanshyam Kaye MD 10/25/212333 Signed By: <Electronically signed by Ghanshyam Kaye MD> 10/25/212336 [facility] Work Phone: 1(846) 575-344407-26-2022 Progress note Author Ghanshyam Kaye [facility] October 25, 2021 10:20am Note Date/Time October 23, 2021 11:5 7am [facility] [address] [place] [address] Physiatry(Rehab) Progress Note Signed Patient: Anai Goodman MR#: [id number] : 1955 Acct:[id number] Age/Sex: 66 / M Adm Date: 2 Loc: Room: 6D1763-8 Type : ADM IN Attending Dr: Ghanshyam Kaye MD Copies to: ~ <Chante Narayan APRN - Last Filed: 10/23/21 11:57> Date of Service: 10/23/2021 Subjective <Chante Narayan APRN - Last Filed: 10/23/21 11:57> Subjective Narrative: Mr. Goodman is a 66 year old male who is admitted to [facility] inpatient rehab for strengthening s/p planned right BKA. Patient's past medical history significant for DM type II, CAD, NM, s/p pacemaker/defibrillator insertion, CKD, osteomyelitis of the [...] Asking about discharge, wants to talk to family independence case manager about insurance coverage, but thinks he would [...] mg 10/21/21 17:51 Bisacodyl 10 Mg Supp.Rect SC 10/21/22 17:50 DAILY PRN Constipation Bumetanide 2 mg 10/21/21 21:00 07/24/22 09:07 Bumetanide 2 Mg Tablet PO 10/21/22 20:59 2 mg BID CB Administration Carvedilol 6.25 mg 10/21/21 21:00 10/23/21 09:07 Carvedilol 6.25 Mg Tablet PO 10/21/22 20:59 6.25 mg BID CB Administration Docusate Sodium 100 mg 10/21/21 17:51 Docusate 100 Mg Capsule PO 10/21/22 17:50 BID PRN Constipation Docusate Sodium 283 mg 10/21/21 17:51 Docusate Enema 283 Mg/5 Ml Enema SC 10/21/22 17:50 DAILY PRN Constipation Insulin Aspart 0 units 10/21/21 17:00 10/23/21 09:05 Insulin Aspart 300 Units/3 Ml Insuln.Pen SUBCUT 10/21/22 16:59 1 units TID.WM.[facility] Administration Protocol Insulin Aspart 0 units 10/21/21 17:00 10/23/21 09:06 Insulin Aspart 300 Units/3 Ml Insuln.Pen SUBCUT 10/21/22 16:59 4 units TID.WITH.MEALS.[facility] Administration Protocol Insulin Detemir 40 units 10/21/21 22:00 10/22/21 20:27 Insulin Detemir 300 Units/3 Ml Insuln.Pen SUBCUT 10/21/22 21:59 40 units QHS [facility] Administration Lactulose 30 gm 10/21/21 17:51 Lactulose 20 Gm/30 Ml Udc PO 10/21/22 17:50 DAILY PRN Constipation Losartan Potassium 25 mg 10/22/21 09:00 10/23/21 09:07 Losartan 25 Mg Tablet PO 10/22/22 08:59 25 mg QAM [facility] Administration Magnesium Oxide 400 mg 10/22/21 09:00 10/23/21 09:07 Magnesium Oxide 400 Mg Tablet PO 10/22/22 08:59 400 mg QAM [facility] Administration Multivitamins 1 tab 10/22/21 09:00 10/23/21 09:07 Multivitamin 1 Tab Tablet PO 10/22/22 08:59 1 tab QAM [facility] Administration Nitroglycerin 0.4 mg 10/21/21 15:50 Nitroglycerin [...] equipment to enhance the patient's a functional restorationist Ensure adequate nutrition and hydration Sleep: Denies any issues Pain: Denies any issues Discharge planning: Home with in 7 to 10 days. I spent greater than 15 minutes for services, including fipo-qh-quht encounter with the patient, discussion of the case, plan of care, and exam; and msiiqss-wy-usxh activities, such as reviewing pertinent exchange underwriting consultant documentation, recent therapy notes, laboratory and radiology studies, and discussion of case with care team including physician, nursing, case reviewer, and therapists. More than 50 % of [...] the chart, including currentorders, allied health and exchange underwriting consultant notes, labs/imaging and plan of care as above. Documented By: Chante Narayan APRN 10/23/21 1 150 Signed By: <Electronically signed by KRUNAL Narayan> 10/23/21 1157 <Electronically signed by Ghanshyam Kaye MD> 10/25/21 1020 [facility] Work Phone: 1(509) 977-266207-26-2022 History and physical note Author Ghanshyam Kaye [facility] October 25, 2021 9:36am Note Date/Time October 22, 2021 9:59 am [facility] [address] [place] [address] Physiatry (Rehab) H&P Signed Patient: Anai Goodman MR#: [id number] : 1955 Acct:[id number] Age/Sex: 66 / M Adm Date: 2 Loc: Room: [address] [place] [address] Type : ADM IN Attending Dr: Ghanshyam Kaye MD Copies to: KRUNAL Mendez DO Joseph Riley, MD~ <Chante Narayan APRN - Last Filed: 10/22/21 10:24> Date of Service: 10/22/2021 HPI <Chante Narayan APRN - Last Filed: 10/22/21 10:24> The patient was seen and examined on: 10/21/21 History of Present Illness: Mr. Goodman is a 66 year old male who is admitted to [facility] inpatient rehab for strengthening s/p planned right BKA. Patient's past medical history significant for DM type II, CAD, NM, s/p pacemaker/defibrillator insertion, CKD, osteomyelitis of the [...] complaints, except as documented Meds <Chante Narayan, KRUNAL - Last Filed: 10/22/21 10:24> Medications and [...] 100 Mg Tablet) 100 mg PO QHS [facility] Stop: 10/21/22 21:59 Last Admin: 10/21/21 22:12 Dose: 100 mg Atorvastatin Calcium (Atorvastatin 80 Mg Tablet) 80 mg PO QAM [facility] Stop: 10/22/22 08:59 Last Admin: 10/22/21 08:05 Dose: 80 mg Bisacodyl (Bisacodyl 10 Mg Supp.Rect) 10 mg SC DAILY PRN PRN Reason: Constipation Stop: 10/21/22 17:50 Bumetanide (Bumetanide 2 Mg Tablet) 2 mg PO BID [facility] Stop: 10/21/22 20:59 Last Admin: 10/22/21 08:02 Dose: 2 mg Carvedilol (Carvedilol 6.25 Mg Tablet) 6.25 mg PO BID [facility] Stop: 10/21/22 20:59 Last Admin: 10/22/21 08:02 Dose: 6.25 mg Docusate Sodium (Docusate 100 Mg Capsule) 100 mg PO BID PRN PRN Reason: Constipation Stop: 10/21/22 17:50 Docusate Sodium (Docusate Enema 283 Mg/5 Ml Enema) 283 mg SC DAILY PRN PRN Reason: Constipation Stop: 10/21/22 17:50 Insulin Aspart (Insulin Aspart 300 Units/3 Ml Insuln.Pen) 0 units SUBCUT TID.WM.[facility]; Protocol Stop: 10/21/22 16:59 Last Admin: 10/22/21 08:01 Dose: 1 units Insulin Aspart (Insulin Aspart 300 Units/3 Ml Insuln.Pen) 0 units SUBCUT TID.WITH.MEALS.[facility]; Protocol Stop: 10/21/22 16:59 Last Admin: 10/22/21 08:01 Dose: 4 units Insulin Detemir (Insulin Detemir 300 Units/3 Ml Insuln.Pen) [facility] Stop: 10/21/22 21:59 Last Admin: 10/21/21 22:02 Dose: 40 units Lactulose (Lactulose 20 Gm/30 Ml Udc) 30 gm PO DAILY PRN PRN Reason: Constipation Stop: 10/21/22 17:50 Losartan Potassium (Losartan 25 Mg Tablet) 25 mg PO QAM [facility] Stop: 10/22/22 08:59 Last Admin: 10/22/21 08:05 Dose: 25 mg Magnesium Oxide (Magnesium Oxide 400 Mg Tablet) 400 mg PO QAM [facility] Stop: 10/22/22 08:59 Last Admin: 10/22/21 08:05 Dose: 400 mg Multivitamins (Multivitamin 1 Tab Tablet) 1 tab PO QAM [facility] Stop: 10/22/22 08:59 Last Admin: 10/22/21 08:05 Dose: 1 tab Nitroglycerin (Nitroglycerin 0.4 Mg Tab.Subl) 0.4 mg SUBLINGUAL DAILY PRN PRN Reason: Chest Pain Stop: 10/21/22 15:49 Rivaroxaban (Rivaroxaban 10 Mg Tablet) 10 mg PO DAILY [facility] Stop: 10/22/22 08:59 Last Admin: 10/22/21 08:06 Dose: 10 mg Fluticasone/Salmeterol (Fluticasone/Salmeterol 232-14 Mcg 60 Puff Inhaler) 1 puff INHALATION BID [facility] Stop: 10/21/22 20:59 Last Admin: 10/22/21 05:10 Dose: 1 puff Sennosides (Sennosides 8.6 Mg Tablet) 2 tab PO DAILY@12 PRN PRN Reason: If no BM in 2 days Stop: 10/22/22 11:59 Sodium Chloride (Sodium Chloride 0.9 % 10 Ml Syringe) 0 ml IV-PUSH PRN PRN PRN Reason: Flush Stop: 10/21/22 17:50 Spironolactone (Spironolactone 25 Mg Tablet) [facility] Stop: 10/22/22 08:59 Last Admin: 10/22/21 08:05 Dose: 25 mg Vitamin D (Cholecalciferol 125 Mcg (5,000 Units) Tablet) 250 mcg PO BID [facility] Stop: 10/21/22 20:59 Last Admin: 10/22/21 08:02 [...] good Judgment: judgment good Results <Chante Narayan CORPORATE DEVELOPMENT INTERN - Last Filed: 10/22/21 10:24> Labs Labs: Laboratory Results - last 24 hr 10/21/21 10/22/21 10/22/21 20:20 05:59 06:19 Corrected WBC 6.6 Uncorrected WBC Count 6.6 RBC 3.99 Hgb 11.8 L Hct 34.6 L MCV 86.7 MCH 29.5 MCHC 34.0 RDW 17.8 H Plt Count 148 L MPV 8.8 Neut % (Auto) 70.1 Lymph % (Auto) 10.0 Jerauld % (Auto) 14.8 Eos % (Auto) 4.5 Baso % (Auto) 0.6 Neut # (Auto) 4.6 Lymph # (Auto) 0.7 L Jerauld # (Auto) 1.0 H Eos # (Auto) [...] MPV Neut % (Auto) Lymph % (Auto) Jerauld % (Auto) Eos % (Auto) Baso % (Auto) Neut # (Auto) Lymph # (Auto) Jerauld # (Auto) Eos # (Auto) Baso # [...] 14 days Expected Discharge Destination: Home Rehabilitation [facility]: 05.4 Primary Diagnosis: Right BKA Patient?s/Family?s [...] 24 hour daily monitoring and intervention from [facility] as well as other consulting physicians including internal medicine as well as 24 hour daily senior medical writer nursing - for medical safe / optimal [...] equipment to enhance the patient's a functional restorationist Ensure adequate nutrition and hydration Sleep: Denies any issues Pain: Denies any issues Discharge planning: Home with in 7 to 10 days. I spent greater than 30 minutes for services, including jqrj-ny-orju encounter with the patient, discussion of the case, plan of care, and exam; and frujkcw-ge-mgmq activities, such as reviewing pertinent exchange underwriting consultant documentation, recent therapy notes, laboratory and radiology studies, and discussion of case with care team including physician, nursing, case reviewer, and therapists. More than 50 % of [...] Allied health note review, nursing note review, exchange underwriting consultant note review, discussion with nursing and [...] chart, including current orders, allied health and exchange underwriting consultant notes, labs/imaging and performed rosado elements of exam and I formulated the plan of care and facilitated the medical decision making and confirmed the nurse practitioner note, as above Documented By: Chante Narayan APRN 10/22/21 0 949 Signed By: <Electronically signed by KRUNAL Naaryan> 10/22/21 1024 <Electronically signed by Ghanshyam Kaye MD> 10/25/21 0936 [facility] Work Phone: 1(970) 356-539407-24-2022 Progress note Author Bronwyn Alegre [facility] October 23, 2021 3:11pm Note Date/Time October 23, 2021 3:11 pm [facility] [address] [place] [address] Hospitalist Progress Note Signed Patient: Anai Goodman MR#: [id number] : 1955 Acct:[id number] Age/Sex: 66 / M Adm Date: 2 Loc: Room: [address] [place] [address] Type : ADM IN Attending Dr: Ghanshyam [...] Tablet PO 10/22/22 08:59 80 mg QAM [facility] Administration Bisacodyl 10 mg 10/21/21 17:51 Bisacodyl 10 Mg Supp.Rect SC 10/21/22 17:50 DAILY PRN Constipation Bumetanide 1 mg 10/23/21 21:00 Bumetanide 1 Mg Tablet PO 10/23/22 20:59 BID CB Carvedilol 6.25 mg 10/21/21 21:00 10/23/21 09:07 Carvedilol 6.25 Mg Tablet PO 10/21/22 20:59 6.25 mg BID [facility] [facility] Administration Docusate Sodium 100 mg 10/21/21 17:51 Docusate 100 Mg Capsule PO 10/21/22 17:50 BID PRN Constipation Docusate Sodium 283 mg 10/21/21 17:51 Docusate Enema 283 Mg/5 Ml Enema SC 10/21/22 17:50 DAILY PRN Constipation Insulin Aspart 0 units 10/21/21 17:00 10/23/21 13:13 Insulin Aspart 300 Units/3 Ml Insuln.Pen SUBCUT 10/21/22 16:59 2 units TID.WM.[facility] Administration Protocol Insulin Aspart 0 units 10/21/21 17:00 10/23/21 13:14 Insulin Aspart 300 Units/3 Ml Insuln.Pen SUBCUT 10/21/22 16:59 5 units TID.WITH.MEALS.[facility] Administration Protocol Insulin Detemir 40 units 10/21/21 22:00 10/22/21 20:27 Insulin Detemir 300 Units/3 Ml Insuln.Pen SUBCUT 10/21/22 21:59 40 units QHS [facility] Administration Lactulose 30 gm 10/21/21 17:51 Lactulose [...] Losartan, Spironolactone 2.? GRACY on CPAP 3. [id number] 7.3, continue detemir, SSI 4. CKD 3?trend [...] PCP and out patient providers to obtain [facility] record entirely to follow up on illnesses, symptoms, abnormal findings that I have and have not addressed duringthis encounter and hospitalization in out patient setting. Documented By: Bronwyn Alegre MD 10/23/21 1509 Signed By: <Electronically signed by Bronwyn Alegre MD> 10/23/21 1510 [facility] Work Phone: 1(727) 418-311707-24-2022 Consult note Author Bronwyn Alegre [facility] October 23, 2021 7:04am Note Date/Time October 22, 2021 4:18 pm [facility] [address] [place] [address] Hospitalist Consult Note Signed Patient: Anai Goodman MR#: [id number] : 1955 Acct:[id number] Age/Sex: 66 / M Adm Date: 07/22/2 2 Loc: Room: 6B0077-1 Type : ADM IN Attending Dr: Ghanshyam [...] negative unless noted below or in HPI [facility] Attestation Statement: The following information was validated [...] mg 10/21/21 17:51 Bisacodyl 10 Mg Supp.Rect SC 10/21/22 17:50 DAILY PRN Constipation Bumetanide 2 mg 10/21/21 21:00 10/22/21 08:02 Bumetanide 2 Mg Tablet PO 10/21/22 20:59 2 mg BID CB Administration Carvedilol 6.25 mg 10/21/21 21:00 10/22/21 08:02 Carvedilol 6.25 Mg Tablet PO 10/21/22 20:59 6.25 mg BID [facility] Administration Docusate Sodium 100 mg 10/21/21 17:51 Docusate 100 Mg Capsule PO 10/21/22 17:50 BID PRN Constipation Docusate Sodium 283 mg 10/21/21 17:51 Docusate Enema 283 Mg/5 Ml Enema SC 10/21/22 17:50 DAILY PRN Constipation Insulin Aspart 0 units 10/21/21 17:00 10/22/21 12:45 Insulin Aspart 300 Units/3 Ml Insuln.Pen SUBCUT 10/21/22 16:59 2 units TID.WM.[facility] Administration Protocol Insulin Aspart 0 units 10/21/21 17:00 10/22/21 12:46 Insulin Aspart 300 Units/3 Ml Insuln.Pen SUBCUT 10/21/22 16:59 2 units TID.WITH.MEALS.[facility] Administration Protocol Insulin Detemir 40 units 10/21/21 22:00 10/21/21 22:02 Insulin Detemir 300 Units/3 Ml Insuln.Pen SUBCUT 10/21/22 21:59 40 units QHS [facility] Administration Lactulose 30 gm 10/21/21 17:51 Lactulose 20 Gm/30 Ml Udc PO 10/21/22 17:50 DAILY PRN Constipation Losartan Potassium 25 mg 10/22/21 09:00 10/22/21 08:05 Losartan 25 Mg Tablet PO 10/22/22 08:59 25 mg QAM [facility] Administration Magnesium Oxide 400 mg 10/22/21 09:00 10/22/21 08:05 Magnesium Oxide 400 Mg Tablet PO 10/22/22 08:59 400 mg QAM [facility] Administration Multivitamins 1 tab 10/22/21 09:00 10/22/21 08:05 Multivitamin 1 Tab Tablet PO 10/22/22 08:59 1 tab QAM [facility] Administration Nitroglycerin 0.4 mg 10/21/21 15:50 Nitroglycerin [...] 14:26 10/22/21 14:26 10/22/21 14:26 10/22/21 14:10/22/21 14:10/22/21 04:14 Narrative: CONST- alert, in [...] % (Auto) 70.1, Lymph % (Auto) 10.0, Jerauld % (Auto) 14.8, Eos % (Auto) 4.5, Baso % (Auto) 0.6, Neut # (Auto) 4.6, Lymph # (Auto) 0.7 L, Jerauld # (Auto) 1.0 H, Eos # (Auto) [...] Losartan, Spironolactone 2.? GRACY on CPAP 3. M6VQ-M3b 7.3, continue detemir, SSI 4. CKD 3?trend labs Documented By: ABDIRASHID Olmedo 2 1618 Signed By: <Electronically signed by ABDIRASHID Matias> 10/22/21 1658 <Electronically signed by Bronwyn Alegre MD> 10/23/21 0704 [facility] Work Phone: 1(637) 320-893407-22-2022 Progress note Author Rodriguez Loera [facility] October 21, 2021 8:37am Note Date/Time October 20, 2021 11:0 8am [facility] [address] [place] [address] Hospitalist Progress Note Signed Patient: Anai Goodman MR#: [id number] : 1955 Acct:[id number] Age/Sex: 66 / M Adm Date: 2 Loc: Room: [address] [place] [address] Type : ADM IN Attending Dr: Reddy [...] Lactated Ringers IV 10/18/22 07:29 Not Given .[id number] CB Insulin Aspart 0 units 10/18/21 08:00 10/20/21 09:47 Insulin Aspart 300 Units/3 Ml Insuln.Pen SUBCUT 10/18/22 07:59 2 units TID.WM.[facility] Administration Protocol Insulin Aspart 0 units 10/18/21 17:00 10/20/21 09:48 Insulin Aspart 300 Units/3 Ml Insuln.Pen SUBCUT 10/18/22 16:59 3 units TID.WM.[facility] Administration Insulin Detemir 40 units 10/18/21 22:00 [...] signed by Rodriguez Loera MD> 10/21/21 0837 [facility] Work Phone: 1(546) 190-883207-21-2022 Progress note Author Rodriguez Loera [facility] October 20, 2021 8:45am Note Date/Time October 19, 2021 11:2 8am [facility] [address] [place] [address] Hospitalist Progress Note Signed Patient: Anai Goodman MR#: [id number] : 1955 Acct:[id number] Age/Sex: 66 / M Adm Date: 2 Loc: 4N Room: [address] [place] [address] Type : ADM IN Attending Dr: Reddy [...] Lactated Ringers IV 10/18/22 07:29 75 mls/hr .[id number] CB Administration Insulin Aspart 0 units 10/18/21 [...] signed by Rodriguez Loera MD> 10/20/21 0845 [facility] Work Phone: 1(963) 185-321007-20-2022 Progress note Author Reddy Brandt [facility] October 19, 2021 12:11pm Note Date/Time October 19, 2021 12:1 1pm [facility] [address] [place] [address] Orthopedic Progress Note Signed Patient: Anai Goodman MR#: [id number] : 1955 Acct:[id number] Age/Sex: 66 / M Adm Date: 2 Loc: 4N Room: 5E1341-8 Type : ADM IN Attending Dr: Reddy [...] signed by Reddy Brandt DO> 10/19/21 1211 [facility] Work Phone: 1(213) 772-318007-20-2022 Consult note Author Stewart Lucio [facility] October 19, 2021 1:42am Note Date/Time October 19, 2021 1:11 am [facility] [address] [place] [address] Hospitalist Consult Note Signed Patient: Anai Goodman MR#: [id number] : 1955 Acct:[id number] Age/Sex: 66 / M Adm Date: 2 Loc: Room: [address] [place] [address] Type : ADM IN Attending Dr: Reddy Brandt DO Copies to: MD Deon Caban,DO Bre Huerta, CORPORATE DEVELOPMENT INTERN~ HPI DATE OF CONSULTATION: 10/19/21 REQUESTING PROVIDER: [...] negative unless noted in the HPI below [facility] Attestation Statement: The following information was validated [...] Lactated Ringers IV 10/18/22 07:29 75 mls/hr .[id number] CB Administration Cefazolin Sodium 1 gm in [...] Ml Insuln.Pen SUBCUT 10/18/22 07:59 6 units TID.WM.[facility] Administration Protocol Insulin Aspart 0 units 10/18/21 17:00 10/18/21 23:37 Insulin Aspart 300 Units/3 Ml Insuln.Pen SUBCUT 10/18/22 16:59 Not Given TID.WM.[facility] Insulin Detemir 40 units 10/18/21 22:00 10/18/21 21:39 Insulin Detemir 300 Units/3 Ml Insuln.Pen SUBCUT 10/18/22 21:59 40 units QHS CB Administration Losartan Potassium 25 mg 10/19/21 09:00 Losartan 25 Mg Tablet PO 10/19/22 08:59 QAM [facility] Magnesium Oxide 400 mg 10/19/21 09:00 Magnesium Oxide 400 Mg Tablet PO 10/19/22 08:59 QAM [facility] Multivitamins 1 tab 10/19/21 09:00 Multivitamin 1 Tab Tablet PO 10/19/22 08:59 QAM [facility] Nitroglycerin 0.4 mg 10/18/21 15:44 Nitroglycerin 0.4 [...] signed by Stewart Lucio MD> 10/19/21 0142 [facility] Work Phone: [phone]) [phone] Evaluation note* Encounter Date Diagnosis Assessment Notes [...] poor healing. 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 I have [...] osteomyelitis of right tibia (ICD-10 - M86.661) [facility] Other 07-07-2022 Evaluation note* Encounter Date Diagnosis Assessment Notes Treatment Notes Treatment Clinical Notes Sep, Other chronic osteomyelitis of right tibia (ICD-10 - M86.661) [facility] Other 07-07-2022 Evaluation note* Encounter Date Diagnosis [...] place his pacemaker into MRI mode. Anyway sterile process tech was very helpful and she is going [...] worse they are to call me WALT. [facility] Other 06-09-2022 Evaluation note* Encounter Date Diagnosis [...] to a suppressive dose at that time [facility] Other 11-23-2021 NoteChief Complaint Basal cell carcinoma [...] 03/03/2021 PATIENT : 1955 LOCATION OF PROCEDURE: [facility] SURGEON: Chirag Gutierrez DO INFORMED CONSENT: Obtained by and on file at [facility] CC: [Basal cell carcinoma left ear [...] get a repeat audiogr (more content not included)...[facility]10-11-2021 NoteChief Complaint Open wound Left ear History of Present Illness PLANNED PROCEDURE: Excision and preparation of surgical site, complex plastics myocutaneous advancement flap tear of left ear defect DATE OF PROCEDURE: 01/11/2021 PATIENT : 1955 LOCATION OF PROCEDURE: [facility], SURGEON: Chirag Gutierrez DO INFORMED CONSENT: Obtained by and on file at [facility] CC: Basal cell carcinoma left ear [...] reconstruction amputation of le (more content not included)...[facility] 01-05-2021 NoteChief Complaint MOHs procedure to [...] Dr. Freed. Previous pathology by physician in [place] about 1 year ago. PMHx of multiple [...] This patient presented to the [facility] with a chief concern of skin [...] and corroborated preoperatively wit (more content not included)...[facility]10-06-2021 NoteClinical Information Procedure: Excision with frozen section left ear Pre-operative diagnosis: Basal cell carcinoma Outside pathology report from [facility] was received with accession number [id number]. SP Specimen A Skin of left ear, [...] skin without gross lesi (more content not included)...[facility]:Performed By: #### SPR ####[facility] (DEFAULT)[address] [place], [place] [address]Dwgpcfses summary Author Ghanshyam Kaye [facility] October 28, 2021 10:30am Note Date/Time October 27, 2021 1:34 pm [facility] [address] [place] [address] Discharge Summary Signed Patient: Anai Goodman MR#: [id number] : 1955 Acct:[id number] Age/Sex: 66 / M Adm Date: 2 Loc: Room: [address] [place] [address]: Ghanshyam Kaye MD Copies to: [...] failure: (5) Hypertension: (6) Hyperlipidemia: Summary <Chante KRUNAL Narayan - Last Filed: 10/27/21 13:34> Hospital Course Hospital course: Mr. Goodman is a 66 year old male who was admitted to [facility] rehab[facility] strengthening s/p planned right BKA. His past medical history significant for DM type II, CAD, NM, s/p pacemaker/defibrillator insertion, CKD, osteomyelitis of the [...] Patient's was on Xarelto while inpatient. Per [facility] pharmacy , insurance co-pay [...] year old male who was admitted to [facility] inpatient rehabfor strengthening s/p planned right BKA. His past medical history significant for DM type II, CAD, NM, s/p pacemaker/defibrillator insertion, CKD, osteomyelitis of the [...] Patient's was on Xarelto while inpatient. Per [facility] pharmacy , insurance co-pay [...] home prior. Your Home Health agency is [facility] ( ). They will usually contact you [...] them prior to your appointment. Instructions: Amputation, Lpzus-tso-Umhl (DC) Stand Alone Forms: Insulin Corrective Scale [...] signed by Ghanshyam Kaye MD> 10/28/21 1030 [facility] Work Phone: evaluation noteNo InformationNort [employer] Other Evaluation note* Diagnosis Onset Date Resolution Status Below knee amputation acute Type 2 diabetes mellitus acu te [facility] Work Phone: Evaluation note* Diagnosis Onset [...] wound of skin acute Wound dehiscence acute [facility] Work Phone: Evaluation note* Diagnosis Onset Date Resolution Status Below knee amputation acute Dehiscence of wound of skin acute Wound dehiscence acute [facility] Work Phone: Evaluation noteNo assessment information available [facility] Work Phone: Evaluvhwwm note* Diagnosis Preop cardiovascular exam- Primary Pre-operative cardiovascular examination Coronary artery disease involving [place] coronary artery of [place] heart without angina pectoris Ischemic cardiomyopathy Other specified forms of chronic ischemic heart disease Chronic systolic congestive heart failure ([facility]) Apical mural thrombus Essential (primary) hypertension Unspecified essential hypertension Cardiac defibrillator in place- [employer]onic Automatic implantable cardiac defibrillator in situ Mixed hyperlipidemia documented in this encounter [facility]* Diagnosis Type 2 diabetes mellitus with diabetic neuropathic arthropathy, with long-term current use of insulin ([facility]) documented in [facility] encounter [facility]* Diagnosis Pure hypercholesterolemia documented in this encounter [facility]* Diagnosis Chronic systolic congestive heart failure (CMS-HCC) documented in this encounter [facility] [employer] SystemEvaluation note* Diagnosis Sarcoidosis with granulomatous hepatitis [facility] [employer] System[facility]* Diagnosis Type 2 diabetes mellitus with diabetic neuropathic arthropathy, with long-term current use of insulin (CMS-HCC) [facility] [employer] SystemHistory general Narrative - Reported* Type Description Date Medical History DM1 Medical History HTN Medical History HYPERLIPEDEMIA Surgical History LEFT FOOT SURGERY WITH REMOVAL OF ALL FIVE TOES Surgical History heart cath with 5 stents placem ent Hospitalization History MRSA 2011 Hospitalization History [email or web address]. 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 hx. [facility] Other InstructionsNot on filedocumented in this encounter [facility] this [facility] filedocumented in this encounter [facility] filedocumented in this encounter [facility] filedocumented in this encounter [facility] Summary Purpose Family History Relationship Condition [...] yelitis of right tibia (M86.661) Referral Organization [facility] Referring Provider First Name Reddy [...] section and content) DATE CREATED AUTHOR 05/12/2020 [facility] DATE CREATED AUTHOR AUTHOR'S ORGANIZ ATION 05/26/2021 [facility] DATE CREATED AUTHOR AUTHOR'S ORGANIZ ATION 08/23/2021 [facility] DATE CREATED AUTHOR AUTHOR'S ORGANIZ ATION 11/02/2021 [facility] DATE CREATED AUTHOR AUTHOR'S ORGANIZ ATION 03/23/2023 [facility] DATE CREATED AUTHOR AUTHOR'S ORGANIZ ATION 04/08/2023 [facility] DATE CREATED AUTHOR AUTHOR'S ORGANIZ ATION 04/15/2023 [facility] DATE CREATED AUTHOR AUTHOR'S ORGANIZ ATION 05/11/2023 [facility] REASON FOR VISIT (unrecogniz ed section and content) Reason Comments Pre-op Exam EST PT PRE OP DR MARIXA Brown SURG DR LEE Reason Onset Date Comments Med Refill 04/13/2023 Reason Comments Med Refill Reason Onset Date Comments Med Refill 06/01/2023 Care Teams (unrecognized sec tion and content) Team Status: Inactive Member Role Status Dates Deon Braxton DO Primary Care Provider Active Reddy Brandt DO Attending Provider Active Team Status: Inactive Member Role Status Dates Deon Braxton DO Primary Care Provider Active Reddy Brandt DO Admit Provider, Attending Provide r Active Jessy Hope , NBA Other Provider Active Marci Ruiz , RN Other Provider Active Aliza Sorensen , RN Other Provider Active Tatiana Jasso , RN Other Provider Active Radha Frederick , RN Other Provider Active Jana Parmar , [...] MD Other Provider Active Mai Britton , SALES CORRESPONDENT-C Other Provider Active Christiano Evans MD Other [...] DO Referring Provider Active Darien Bailey , SALES CORRESPONDENT-C Attending Provider Activ e Team Status: Active [...] , NBA Other Provider Active Radha Frederick , NBA Other Provider Active Jana Parmar , NBA Other Provider Active Bronwyn Alegre MD Other Provider Active Fredi Mendez MD Other Provider Active Drea Galvin , CORPORATE DEVELOPMENT INTERN Other Provider Active Julia Segura , DO [...] Active Sonido Murillo MD Other Provider Active CRISTINA Natarajan Other Provider Active Christiano Evans MD Other [...] DO Admit Provider, Attending Provide r Active Lock Technician Relationship Specialty Start Date End Date Deon Braxton DO [address] [place] [address] PCP - General Internal Medicine 01/22/17 Lock Technician Relationship Specialty Start Date End Date Deon Braxton DO [address] [place] [address] PCP - General Internal Medicine 01/22/17 Team Status: Inactive Member Role Status Dates Deon Braxton DO Primary Care Provider Active Sta rt: April 19, 2023 End: April 19, 2023 Salina Lee DPM MS Attending Provider Active Start: April 19, 2023 End: April 19, 2023 Lock Technician Relationship Specialty Start Date End Date Deon Braxton DO [address] [place] [address] PCP - General Internal Medicine 01/22/17 Lock Technician Relationship Specialty Start Date End Date Deon BraxtonDO [address] [place] [address] PCP - General Internal Medicine 01/22/17 Lock Technician Relationship Specialty Start Date End Date Deon Braxton DO [place] [address] [place] [address] PCP - General Internal Medicine 01/22/17 Goals [...] BE BASED ON THE PRIMARY CLINICAL RECORDS. [facility] [facility]. provides no warranty or guarantee of the accuracy or completeness of information in this document.
[2023-06-21] MEDS: OXYCODONE HCL/ACETAMINOPHEN 5MG/325MG 1 TAB PO ×2 (09:18→21:56)
--- NOTE | 2023-06-21 09:59 | P.PN_ITS ---
<Statement entered by Josh Watt MD - 06/21/23 11:14> Patient seen and examined, agree with assessment and plan below. Patient doing well. Pain tolerable. On antibiotics. Will go to OR later this am. Diagnosis: 1. Abscess 2. ROSALINO 3. DM2 with hyperglycemia 4. HTN 5. COPD 6. Chronic HFrEF 7. CAD 8. CKD 3a Progress Note: Subjective Subjective Interval history: 06/21/23 0905 The pt is lying in bed sleeping on my arrival to the room. He awakens easily to voice. He reports moderate pain to his RLE stump at site of the abscess. Surgical I&D in the OR is planned for later this afternoon. Pre-op eval is unremarkable. Old OH on EKG is consistent with known hx and troponin is WNL. CXR reveals NAD. 2D Echo reveals HFrEF w/ moderately reduced LVEF of 30-35%, biatrial enlargement, grade 2 diastolic dysfunction, no significant valvular abnormalities but valves are poorly visualized. He is a high cardiac surgical risk (Jefe revised cardiac index >11%), but is stable for surgery at this time. Possible discharge later today pending post op course and podiatry plan of care. Exam Constitutional Vital Signs, click to edit/add: Last Vital Signs Temp 98.1 F 06/21/23 08:31 Pulse 67 06/21/23 08:31 Resp 18 06/21/23 08:31 BP 143/65 H 06/21/23 08:31 Pulse Ox 96 06/21/23 08:31 O2 Del Method Room Air 06/21/23 08:31 Common normals: no apparent distress, oriented x3 and alert General appearance: cooperative Orientation/consciousness: Yes awake HENMN Common normals: normocephalic, head/scalp atraumatic and hearing grossly normal bilaterally Eye Common normals: PERRL, EOMs intact bilaterally, conjunctivae normal and no scleral icterus General eye: normal appearance of both eyes Chest Common normals: inspection of chest normal Chest: symmetrical chest wall rise Respiratory Common normals: normal respiratory effort, no use of accessory muscles and clear to auscultation bilaterally Effort & inspection: able to speak in complete sentences Cardio Common normals: regular rate, regular rhythm, S1 normal heart sound, no murmurs and peripheral pulses 2+ throughout Heart sounds: S2 abnormal (Split) GI Common normals: Normal to inspection, nondistended, normoactive bowel sounds present, soft to palpation, non-tender and no hepatosplenomegaly Bladder/kidney exam: bladder normal to palpation Extremity Common normals: normal to inspection and no calf tenderness General: no clubbing, no cyanosis and no edema Right lower extremity: lower leg (BKA stump w/ lateral abscess, minimal drng, purplish discoloration) Left lower extremity: foot and digits (L forefoot amputation) Neuro Common normals: CN's II-XII intact bilaterally, moves all extremities, no focal motor deficits and no sensory deficits noted Sensory exam: sensory level loss detected (BLE below knees to toes-chronic neuropathy) Psych Common normals: mental status grossly normal Progress Note: Objective Labs Labs: Short CBC 06/20/23 06/21/23 Range/Units 10:05 04:18 WBC 9.2 8.1 (4.0-11.0) 10^3/uL Hgb 13.3 L 12.3 L (14.0-18.0) g/dL Hct 40.4 L 38.2 L (42.0-54.0) % Plt Count 140 L 148 L (150-450) 10^3/uL BMP 06/20/23 06/21/23 10:05 04:18 Sodium 137 139 Potassium 3.9 4.1 Chloride 99 104 Carbon Dioxide 25.9 24.5 BUN 47.0 H 33.0 H Creatinine 2.23 H 1.68 H Glucose 138 H 143 H Calcium 9.1 8.7 Liver Function 06/21/23 Range/Units 04:18 Total Bilirubin 0.7 (0.2-1.0) mg/dL AST 25 (15-37) U/L ALT 28 (16-63) U/L Alkaline Phosphatase 70 (46-116) U/L Albumin 2.8 L (3.4-5.0) g/dL Imaging 2D Echo: Attestation: I have reviewed the pertinent imaging results. Radiologist's impression: CONCLUSION: 1. Global left ventricular systolic function is moderately reduced; visually estimated ejection fraction is 30 to 35% 2. Normal right ventricular size and systolic function 3. Biatrial enlargement 4. Grade 2 diastolic dysfunction 5. Mild tricuspid regurgitation 6. Mildly elevated right ventricular systolic pressure; RVSP 45 mmHg 7. Valves are poorly seen; no significant valvular abnormalities Chest x-ray: Attestation: I have reviewed the pertinent imaging results. Radiologist's impression: IMPRESSION: Cardiac enlargement without evidence of overt cardiac decompensation. A focal infiltrate is not identified. The overall appearance of the chest is unchanged. Progress Note: A&P Assessment and Plan (1) Abscess: Assessment and Plan: Acute * Consult podiatry - we appreciate Dr Garcia assistance with this pt's care * I&D in the OR later this morning * NPO for surgery * Hold home Eliquis & ASA pending surgical intervention * CXR, EKG, 2D Echo for preop evaluation - mostly unremarkable/unchanged from baseline. Mod HFrEF w/ LVEF 30-35%. * High cardiac surgical risk (>11%) but stable for surgery * Continue IVPB Zosyn and Vanco w/ pharmacy to dose * BC x 2 obtained in ED - pending * Blood cultures x 2 obtained in the ED - pending * ESR and CRP improving * Afebrile, stable BP and mentation, no leukocytosis * Low clinical suspicion for sepsis * Possible discharge later today pending post op course and podiatry plan of care * CBC, CMP daily until discharge. (2) Acute kidney injury superimposed on CKD: Assessment and Plan: Acute * Resolved * BUN 33, Cr 1.68, GFR 41 * Suspect baseline CKD3a per previous lab results in April * BUN 45, Cr 1.76, GFR 39 * Continue to hold home renal toxic meds including spironolactone, farxiga, and losartan for now. Plan to resume at discharge * Resume Bumex post op today * Saline lock IVF (in setting of Systolic HF) after surgery * Amino acid supplement BID to promote healing * CMP daily until discharge (3) Diabetes: Assessment and Plan: Chronic * Continue home lantus 40 un at [facility] pharmacy substitution per formulary * ACHS glucometer checks * Med SSI glucose correction - low threshold to increase to high dose pending clinical course * High CC diet per dietary recommendation * A1C 5.2 - adequate baseline BS control (4) Below-knee amputation of right lower extremity: Assessment and Plan: Chronic * BKA in 2021 * See abscess above * Pt is ambulatory w/ prosthesis or with knee scooter (5) Diabetic neuropathy: Assessment and Plan: Chronic * Stable at baseline * Not on gabapentin at home (6) COPD (chronic obstructive pulmonary disease): Assessment and Plan: Chronic * Continue home PRN Albuterol HFA and q48hr prednisone * Low threshold to add steroid stress dosing in a steroid dependent pt pending clinical course (7) CAD (coronary artery disease): Assessment and Plan: Chronic * s/p OH 2014 w/ stent placement * Pt has been on Eliquis since stents were placed * Hold eliquis & ASA for now pending surgical intervention * Plan to resume in AM if OK w/ podiatry * Continue to hold home ARB d/t ROSALINO - resume at d/c * Continue home statin and BB (8) Chronic systolic (congestive) heart failure: Assessment and Plan: Chronic * Hold home Bumex for now d/t ROSALINO * Resume when clinically indicated * Pt appears euvolemic at time of admission * 2D Echo for preop eval now * Gentle IVF d/t ROSALINO and NPO status at midnight * Daily weights, strict I&O (9) Hypertension: Assessment and Plan: Chronic * Hold home losartan d/t ROSALINO * Continue home Coreg * Consider holding if hypotension develops in a steroid dependent pt * BP well controlled on Coreg alone for now * PRN IV Hydralazine for uncontrolled HTN
--- NOTE | 2023-06-21 09:59 | PM.PN ---
Progress Note: Subjective Subjective Interval history: 06/21/23 0905 The pt is lying in bed sleeping on my arrival to the room. He awakens easily to voice. He reports moderate pain to his RLE stump at site of the abscess. Surgical I&D in the OR is planned for later this afternoon. Pre-op eval is unremarkable. Old CA on EKG is consistent with known hx and troponin is WNL. CXR reveals NAD. 2D Echo reveals HFrEF w/ moderately reduced LVEF of 30-35%, biatrial enlargement, grade 2 diastolic dysfunction, no significant valvular abnormalities but valves are poorly visualized. He is a high cardiac surgical risk (Jefe revised cardiac index >11%), but is stable for surgery at this time. Possible discharge later today pending post op course and podiatry plan of care. Exam Constitutional Vital Signs, click to edit/add: Last Vital Signs Temp 98.1 F 06/21/23 08:31 Pulse 67 06/21/23 08:31 Resp 18 06/21/23 08:31 BP 143/65 H 06/21/23 08:31 Pulse Ox 96 06/21/23 08:31 O2 Del Method Room Air 06/21/23 08:31 Common normals: no apparent distress, oriented x3 and alert General appearance: cooperative Orientation/consciousness: Yes awake HENMT Common normals: normocephalic, head/scalp atraumatic and hearing grossly normal bilaterally Eye Common normals: PERRL, EOMs intact bilaterally, conjunctivae normal and no scleral icterus General eye: normal appearance of both eyes Chest Common normals: inspection of chest normal Chest: symmetrical chest wall rise Respiratory Common normals: normal respiratory effort, no use of accessory muscles and clear to auscultation bilaterally Effort & inspection: able to speak in complete sentences Cardio Common normals: regular rate, regular rhythm, S1 normal heart sound, no murmurs and peripheral pulses 2+ throughout Heart sounds: S2 abnormal (Split) GI Common normals: Normal to inspection, nondistended, normoactive bowel sounds present, soft to palpation, non-tender and no hepatosplenomegaly Bladder/kidney exam: bladder normal to palpation Extremity Common normals: normal to inspection and no calf tenderness General: no clubbing, no cyanosis and no edema Right lower extremity: lower leg (BKA stump w/ lateral abscess, minimal drng, purplish discoloration) Left lower extremity: foot and digits (L forefoot amputation) Neuro Common normals: CN's II-XII intact bilaterally, moves all extremities, no focal motor deficits and no sensory deficits noted Sensory exam: sensory level loss detected (BLE below knees to toes-chronic neuropathy) Psych Common normals: mental status grossly normal Progress Note: Objective Labs Labs: Short CBC 06/20/23 06/21/23 Range/Units 10:05 04:18 WBC 9.2 8.1 (4.0-11.0) 10^3/uL Hgb 13.3 L 12.3 L (14.0-18.0) g/dL Hct 40.4 L 38.2 L (42.0-54.0) % Plt Count 140 L 148 L (150-450) 10^3/uL BMP 06/20/23 06/21/23 10:05 04:18 Sodium 137 139 Potassium 3.9 4.1 Chloride 99 104 Carbon Dioxide 25.9 24.5 BUN 47.0 H 33.0 H Creatinine 2.23 H 1.68 H Glucose 138 H 143 H Calcium 9.1 8.7 Liver Function 06/21/23 Range/Units 04:18 Total Bilirubin 0.7 (0.2-1.0) mg/dL AST 25 (15-37) U/L ALT 28 (16-63) U/L Alkaline Phosphatase 70 (46-116) U/L Albumin 2.8 L (3.4-5.0) g/dL Imaging 2D Echo: Attestation: I have reviewed the pertinent imaging results. Radiologist's impression: CONCLUSION: 1. Global left ventricular systolic function is moderately reduced; visually estimated ejection fraction is 30 to 35% 2. Normal right ventricular size and systolic function 3. Biatrial enlargement 4. Grade 2 diastolic dysfunction 5. Mild tricuspid regurgitation 6. Mildly elevated right ventricular systolic pressure; RVSP 45 mmHg 7. Valves are poorly seen; no significant valvular abnormalities Chest x-ray: Attestation: I have reviewed the pertinent imaging results. Radiologist's impression: IMPRESSION: Cardiac enlargement without evidence of overt cardiac decompensation. A focal infiltrate is not identified. The overall appearance of the chest is unchanged. Progress Note: A&P Assessment and Plan (1) Abscess: Assessment and Plan: Acute Consult podiatry - we appreciate Dr Garcia assistance with this pt's care I&D in the OR later this morning NPO for surgery Hold home Eliquis & ASA pending surgical intervention CXR, EKG, 2D Echo for preop evaluation - mostly unremarkable/unchanged from baseline. Mod HFrEF w/ LVEF 30-35%. High cardiac surgical risk (>11%) but stable for surgery Continue IVPB Zosyn and Vanco w/ pharmacy to dose BC x 2 obtained in ED - pending Blood cultures x 2 obtained in the ED - pending ESR and CRP improving Afebrile, stable BP and mentation, no leukocytosis Low clinical suspicion for sepsis Possible discharge later today pending post op course and podiatry plan of care CBC, CMP daily until discharge. (2) Acute kidney injury superimposed on CKD: Assessment and Plan: Acute Resolved BUN 33, Cr 1.68, GFR 41 Suspect baseline CKD3a per previous lab results in April BUN 45, Cr 1.76, GFR 39 Continue to hold home renal toxic meds including spironolactone, farxiga, and losartan for now. Plan to resume at discharge Resume Bumex post op today Saline lock IVF (in setting of Systolic HF) after surgery Amino acid supplement BID to promote healing CMP daily until discharge (3) Diabetes: Assessment and Plan: Chronic Continue home lantus 40 un at [facility] pharmacy substitution per formulary ACHS glucometer checks Med SSI glucose correction - low threshold to increase to high dose pending clinical course High CC diet per dietary recommendation A1C 5.2 - adequate baseline BS control (4) Below-knee amputation of right lower extremity: Assessment and Plan: Chronic BKA in 2021 See abscess above Pt is ambulatory w/ prosthesis or with knee scooter (5) Diabetic neuropathy: Assessment and Plan: Chronic Stable at baseline Not on gabapentin at home (6) COPD (chronic obstructive pulmonary disease): Assessment and Plan: Chronic Continue home PRN Albuterol HFA and q48hr prednisone Low threshold to add steroid stress dosing in a steroid dependent pt pending clinical course (7) CAD (coronary artery disease): Assessment and Plan: Chronic s/p CA 2014 w/ stent placement Pt has been on Eliquis since stents were placed Hold eliquis & ASA for now pending surgical intervention Plan to resume in AM if OK w/ podiatry Continue to hold home ARB d/t ROSALINO - resume at d/c Continue home statin and BB (8) Chronic systolic (congestive) heart failure: Assessment and Plan: Chronic Hold home Bumex for now d/t ROSALINO Resume when clinically indicated Pt appears euvolemic at time of admission 2D Echo for preop eval now Gentle IVF d/t ROSALINO and NPO status at midnight Daily weights, strict I&O (9) Hypertension: Assessment and Plan: Chronic Hold home losartan d/t ROSALINO Continue home Coreg Consider holding if hypotension develops in a steroid dependent pt BP well controlled on Coreg alone for now PRN IV Hydralazine for uncontrolled HTN
[2023-06-21] MEDS: DULOXETINE HCL 30 MG CAPSULE.DR PO (10:00)
[2023-06-21] MEDS: LACTATED RINGER'S SOLUTION 1,000 ML 50 ML IV (10:01)
[2023-06-21 10:20] LABS: Glucometer 143 mg/dL (74-106)
--- NOTE | 2023-06-21 10:30 | CM.NOTE ---
Rounds made with Dr. Watt, pt will go to OR today for I&D with David. Dr. Watt will await further recommendations from David.
[2023-06-21] MEDS: LIDOCAINE HCL 1% 100 MG/10 ML MDV INJ (14:01)
--- NOTE | 2023-06-21 14:02 | PM.ORONB ---
Brief Operative Note Date of procedure: 06/21/23 Pre-op diagnosis: Right leg abscess Post-op diagnosis: same as pre-op Procedure: PROCEDURES PERFORMED: incision and drainage of right leg abscess & application of wound VAC as part of staged procedure INTRAOPERATIVE FINDINGS: Preoperative wound measurements: 1.2 x 0.9 x 0.6 cm approximately 5 mL of purulence noted superficial to deep fascia. No bone exposure. PROCEDURE IN DETAIL: Patient was identified in pre op and consent was reviewed. Correct side and site were identified and marked. Pre-op antibiotics were started. Patient was brought to OR suite and place on table in a supine position. General anesthesia was administered. Tourniquet applied but was not inflated during the procedure. Operative extremity was prepped and draped in usual sterile fashion. Formal time-out was performed. Utilizing a scalpel, the wound on the lateral leg was excised to healthy granular tissue then extended proximally and distally. purulence was evacuated and a culture was obtained. Debridement was then performed with a scalpel/forceps and with curettes excising all nonviable and questionable tissue. Blunt dissection with a hemostat was performed to ensure no additional purulence or necrotic tissue was present. After full excision the surgical site was irrigated with 3 L of copious sterile saline. Wound VAC was applied with black foam and set at 125 mmHg with Veraflow setting. A dry sterile dressing was then applied. Patient tolerated the procedure and anesthesia well transferred to the recovery room with vital signs stable. POSTOPERATIVE PLAN: transfer to medical surgical unit continue IV antibiotics and may be able to alter given pansensitive staph from cultures obtained on 06/17 Maintain VAC at current settings NWB right leg Plan to keep him over the weekend for repeat debridement and possible closure on Sunday Anesthesia: ROEL Surgeon: Heraclio Hernandez Shell Molding Roller Blast Operator: Kenan Sethi Estimated blood loss (mL): 25 Tourniquet time (min): 0 Pathology: other (tissue swab) Condition: stable Disposition: PACU
[2023-06-21] MEDS: BUPIVACAINE HCL 0.5% PF 50 MG/10 ML VIAL INJ (14:23)
[2023-06-21 14:51] LABS: Glucometer 130 mg/dL (74-106)
[2023-06-21] MEDS: BUMETANIDE 1 MG TABLET PO ×2 (16:10→21:54)
[2023-06-21 16:18] LABS: Glucometer 135 mg/dL (74-106)
[2023-06-21] MEDS: CEFTRIAXONE 1,000 MG in 0.9 % SODIUM CHLORIDE 50 ML 100 MG IV (17:22)
[2023-06-21] MEDS: OXYCODONE HCL 5 MG TABLET 10 MG PO (19:00)
[2023-06-21] MEDS: INSULIN ASPART 300 UNIT/3 ML PEN SUBQ (21:53)
[2023-06-21] MEDS: INSULIN DETEMIR 300 UNIT/3 ML INSULN.PEN 40 UNIT SUBQ (21:53)
[2023-06-21] MEDS: PROSTAT 15 GM PROTEIN/100 CAL 30 ML LIQUID PACKET PO (21:54)
[2023-06-21] MEDS: ATORVASTATIN CALCIUM 40 MG TABLET 80 MG PO (21:54)
[2023-06-21 21:57] LABS: Glucometer 159 mg/dL (74-106)
[2023-06-22 04:00] VITALS: BP 150/79; PULSE 70; RESP 16; TEMP 36.6; O2SAT 96
[2023-06-22 04:31] LABS: Hematocrit 38.5 % (42.0-54.0); Hemoglobin 12.7 g/dL (14.0-18.0); Mean Corpuscular Hemoglobin 31.1 pg (25.9-34.0); Mean Corpuscular Volume 94.1 fL (80.0-94.0); Mean Platelet Volume 10.1 fL (9.5-13.5); Platelet Count 142 10^3/uL (150-450); Red Blood Count 4.09 10^6/uL (4.70-6.10); Red Cell Distribution Width 13.9 % (11.0-15.0); White Blood Count 5.8 10^3/uL (4.0-11.0)
[2023-06-22 04:52] LABS: Alanine Aminotransferase 32 U/L (16-63); Albumin Globulin Ratio 0.8; Albumin Level 2.7 g/dL (3.4-5.0); Alkaline Phosphatase 62 U/L (46-116); Anion Gap 8.7; Aspartate Amino Transferase 28 U/L (15-37); BUN Creatinine Ratio 19.4; Bilirubin Total 0.8 mg/dL (0.2-1.0); Calcium 8.7 mg/dL (8.5-10.1); Carbon Dioxide 30.4 mmol/L (21.0-32.0); Chloride 104 mmol/L (98-107); Estimated GFR (African America >60 (>=60); Estimated GFR (Non-African Ame 56 (>=60); Globulin 3.6 g/dL; Glucose 104 mg/dL (74-106); Potassium 4.1 mmol/L (3.5-5.1); Sodium 139 mmol/L (136-145); Total Protein 6.3 g/dL (6.4-8.2)
[2023-06-22 05:02] LABS: Atypical Lymphocytes Abs Man 0.29; Band Neutrophils Absolute 0.1 10^3/uL (0.0-0.3); Eosinophils Absolute Manual 0.11 10^3/uL (0.00-0.70); Monocytes Absolute Manual 0.58 10^3/uL (0.30-0.80); Segmented Neut Absolute Manual 4.35 10^3/uL (1.4-6.5); Toxic Granulation 4+
[2023-06-22 07:57] VITALS: BP 140/86; PULSE 68; RESP 18; TEMP 36.4; O2SAT 95
--- NOTE | 2023-06-22 08:36 | PM.PN ---
Progress Note: Subjective Subjective Interval history: Patient seen resting comfortably at bedside this a.m. POD #1 s/p right leg I&D with application of wound VAC DOS 06/21/2023. Patient states pain in the site of the abscesses mild and improved from prior surgery. VAC with good seal and minimal drainage in canister. Denies any acute events overnight, maintaining nonweightbearing to the right lower extremity. Denies any other acute lower extremity complaints and denies any constitutional symptoms at time of visit. Exam Narrative Exam Narrative: RLE dressing left CDI. VAC with good seal maintained suction at 125 intermittent with vera flow setting. No erythema edema or ecchymosis proximal to dressing. No hypersensitivity, no palpatory tenderness upon exam. Arm soft compressible no pain with compression of the stump or thigh. Constitutional Vital Signs, click to edit/add: Last Vital Signs Temp 97.6 F 06/22/23 07:57 Pulse 68 06/22/23 07:57 Resp 18 06/22/23 07:57 BP 140/86 06/22/23 07:57 Pulse Ox 95 06/22/23 07:57 O2 Del Method Room Air 06/22/23 07:57 Progress Note: Objective Labs Labs: Short CBC 06/22/23 Range/Units 04:13 WBC 5.8 (4.0-11.0) 10^3/uL Hgb 12.7 L (14.0-18.0) g/dL Hct 38.5 L (42.0-54.0) % Plt Count 142 L (150-450) 10^3/uL BMP 06/22/23 04:13 Sodium 139 Potassium 4.1 Chloride 104 Carbon Dioxide 30.4 BUN 25.0 H Creatinine 1.29 Glucose 104 Calcium 8.7 Liver Function 06/22/23 Range/Units 04:13 Total Bilirubin 0.8 (0.2-1.0) mg/dL AST 28 (15-37) U/L ALT 32 (16-63) U/L Alkaline Phosphatase 62 (46-116) U/L Albumin 2.7 L (3.4-5.0) g/dL Progress Note: A&P Assessment and Plan (1) Abscess: (2) Acute kidney injury superimposed on CKD: (3) Diabetes: (4) Hypertension: (5) COPD (chronic obstructive pulmonary disease): (6) Chronic systolic (congestive) heart failure: (7) CAD (coronary artery disease): (8) Stage 3a chronic kidney disease (CKD): Plan Patient examined and evaluated. All findings discussed with patient and all questions answered by satisfaction. Pertinent labs and imaging reviewed. RLE dressing and VAC left CDI. Maintain 125 intermittent vera flow settings. Maintain nonweightbearing to the right lower extremity, may use the knee scooter on the right side for ambulation. Pain control with p.o. oxycodone. Currently on IV Rocephin given pansensitive Staph aureus on prior in office culture. IntraOp cultures pending. Plan for course of IV antibiotics over the weekend and return to the OR Sunday for repeat washout and delayed primary closure. Patient understanding and agreeable. Rest per primary, please call questions or concerns.
[2023-06-22] MEDS: PROSTAT 15 GM PROTEIN/100 CAL 30 ML LIQUID PACKET PO ×2 (08:37→21:48)
[2023-06-22] MEDS: ALLOPURINOL 100 MG TABLET 200 MG PO (08:37)
[2023-06-22 08:38] VITALS: BP 140/86
[2023-06-22] MEDS: MAGNESIUM OXIDE 400 MG TABLET PO (08:38)
[2023-06-22] MEDS: CARVEDILOL 6.25 MG TABLET PO ×2 (08:38→21:49)
[2023-06-22] MEDS: DULOXETINE HCL 30 MG CAPSULE.DR PO (08:38)
[2023-06-22] MEDS: PREDNISONE 5 MG TABLET PO (08:38)
[2023-06-22] MEDS: BUMETANIDE 1 MG TABLET PO ×2 (08:38→21:48)
--- NOTE | 2023-06-22 10:37 | PM.PN ---
Progress Note: Subjective Subjective Interval history: Patient feels well today. Pain controlled with medication. Able to get around room without difficulty and maintain NWB. Afebrile and normal WBC. Normal appetite and no emesis or diarrhea. No chest pain or palpitations. No SOB or cough. No LE edema. Exam Constitutional Vital Signs, click to edit/add: Last Vital Signs Temp 97.6 F 06/22/23 07:57 Pulse 68 06/22/23 07:57 Resp 18 06/22/23 07:57 BP 140/86 06/22/23 08:38 Pulse Ox 95 06/22/23 07:57 O2 Del Method Room Air 06/22/23 07:57 Documenting provider has reviewed patient's vital signs: yes Common normals: no apparent distress, oriented x3 and alert HENMT Common normals: normocephalic Eye Common normals: PERRL and EOMs intact bilaterally Respiratory Common normals: normal respiratory effort and clear to auscultation bilaterally Cardio Common normals: regular rate, regular rhythm, no gallops, no murmurs and no rub GI Common normals: Normal to inspection, nondistended, normoactive bowel sounds present and non-tender Extremity Common normals: no pedal edema Progress Note: Objective Labs Labs: Short CBC 06/22/23 Range/Units 04:13 WBC 5.8 (4.0-11.0) 10^3/uL Hgb 12.7 L (14.0-18.0) g/dL Hct 38.5 L (42.0-54.0) % Plt Count 142 L (150-450) 10^3/uL BMP 06/22/23 04:13 Sodium 139 Potassium 4.1 Chloride 104 Carbon Dioxide 30.4 BUN 25.0 H Creatinine 1.29 Glucose 104 Calcium 8.7 Liver Function 06/22/23 Range/Units 04:13 Total Bilirubin 0.8 (0.2-1.0) mg/dL AST 28 (15-37) U/L ALT 32 (16-63) U/L Alkaline Phosphatase 62 (46-116) U/L Albumin 2.7 L (3.4-5.0) g/dL Progress Note: A&P Assessment and Plan (1) Abscess: (2) Acute kidney injury superimposed on CKD: (3) Diabetes: (4) Hypertension: (5) COPD (chronic obstructive pulmonary disease): (6) Chronic systolic (congestive) heart failure: (7) CAD (coronary artery disease): (8) Stage 3a chronic kidney disease (CKD): Plan Patient stable this am. Wound culture from office showed abscess due to MSSA and changed to IV rocephin yesterday. Continue PT for weakness. Continue IV antibiotics. Monitor labs and vitals. Podiatry plans on return to OR 06/24.
--- NOTE | 2023-06-22 11:16 | CM.NOTE ---
Rounds made with Dr. Watt, pt denies needs. Wound vac continues and pt will go back for wound closure on Sunday.
[2023-06-22 11:18] LABS: Glucometer 155 mg/dL (74-106)
[2023-06-22] MEDS: INSULIN ASPART 300 UNIT/3 ML PEN SUBQ ×3 (11:20→21:49)
[2023-06-22 14:27] VITALS: BP 139/77; PULSE 74; RESP 18; TEMP 36.7; O2SAT 96
[2023-06-22] MEDS: OXYCODONE HCL/ACETAMINOPHEN 5MG/325MG 1 TAB PO (14:34)
--- NOTE | 2023-06-22 15:23 | CM.NOTE ---
Important Message From Medicare discussed with pt, pt verbalizes understanding and signs paper. Original given to pt and copy placed in pt's chart.
[2023-06-22 16:28] LABS: Glucometer 187 mg/dL (74-106)
[2023-06-22] MEDS: CEFTRIAXONE 1,000 MG in 0.9 % SODIUM CHLORIDE 50 ML 100 MG IV (17:11)
[2023-06-22] MEDS: SODIUM HYPOCHLORITE HALF STRENGTH (0.25%) 473 ML BOTTLE 30 ML TOPICAL (17:25)
[2023-06-22 20:21] VITALS: BP 133/77; PULSE 71; RESP 16; TEMP 36.7; O2SAT 96
[2023-06-22 20:54] LABS: Glucometer 162 mg/dL (74-106)
[2023-06-22] MEDS: ATORVASTATIN CALCIUM 40 MG TABLET 80 MG PO (21:48)
[2023-06-22] MEDS: INSULIN DETEMIR 300 UNIT/3 ML INSULN.PEN 40 UNIT SUBQ (21:49)
--- NOTE | 2023-06-22 22:38 | RESP.RT ---
Pt denies need for PRN breathing tx. No respiratory distress noted.
[2023-06-22 22:39] VITALS: O2SAT 96
[2023-06-23] VITALS (9 sets, daily range): BP systolic 118–162; BP diastolic 66–79; PULSE 63–72; RESP 16–22; TEMP 36.3–36.8; O2SAT 94–96
[2023-06-23 05:16] LABS: Basophils Percent Auto 0.5 % (0.2-2.0); Eosinophils Absolute Auto 0.4 10^3/uL (0.0-0.7); Eosinophils Percent Auto 5.8 % (0.9-7.0); Hematocrit 40.4 % (42.0-54.0); Hemoglobin 13.4 g/dL (14.0-18.0); Immature Granulocytes Abs Auto 0.02 10^3/uL (0.00-0.03); Immature Granulocytes Pct Auto 0.3 % (0.0-0.5); Lymphocytes Absolute Auto 0.8 10^3/uL (1.2-3.8); Mean Corpuscular HGB Conc 33.2 g/dL (29.9-35.2); Mean Corpuscular Hemoglobin 30.5 pg (25.9-34.0); Mean Platelet Volume 10.5 fL (9.5-13.5); Monocytes Absolute Auto 0.9 10^3/uL (0.3-0.8); Monocytes Percent Auto 13.1 % (1.7-12.0); Neutrophils Absolute Auto 4.5 10^3/uL (1.4-6.5); Neutrophils Percent Auto 68.3 % (43.0-75.0); Platelet Count 165 10^3/uL (150-450); Red Blood Count 4.39 10^6/uL (4.70-6.10); Red Cell Distribution Width 13.7 % (11.0-15.0); White Blood Count 6.6 10^3/uL (4.0-11.0)
[2023-06-23 05:32] LABS: Alanine Aminotransferase 31 U/L (16-63); Albumin Globulin Ratio 0.7; Albumin Level 2.7 g/dL (3.4-5.0); Alkaline Phosphatase 66 U/L (46-116); Anion Gap 9.4; Aspartate Amino Transferase 23 U/L (15-37); BUN Creatinine Ratio 24.8; Bilirubin Total 0.6 mg/dL (0.2-1.0); Calcium 8.8 mg/dL (8.5-10.1); Carbon Dioxide 29.2 mmol/L (21.0-32.0); Chloride 103 mmol/L (98-107); Estimated GFR (African America >60 (>=60); Estimated GFR (Non-African Ame >60 (>=60); Globulin 3.7 g/dL; Glucose 122 mg/dL (74-106); Potassium 3.6 mmol/L (3.5-5.1); Sodium 138 mmol/L (136-145); Total Protein 6.4 g/dL (6.4-8.2)
[2023-06-23 07:48] LABS: Glucometer 118 mg/dL (74-106)
--- NOTE | 2023-06-23 08:15 | PM.PN ---
Progress Note: Subjective Subjective Interval history: patient feeling well and improved as compared to preoperative status. Pain has diminished over his infection site. There is issues with wound VAC therefore was discontinued and replaced with wet-to-dry dressings. Patient has no complaints Exam Narrative Exam Narrative: dressing to right BKA stump is clean dry and intact. No POP Patient is able to flex and extend the knee without discomfort Constitutional Vital Signs, click to edit/add: Last Vital Signs Temp 97.6 F 06/23/23 04:44 Pulse 63 06/23/23 04:44 Resp 16 06/23/23 04:44 BP 118/67 06/23/23 04:44 Pulse Ox 94 L 06/23/23 04:44 O2 Del Method Room Air 06/23/23 04:44 Progress Note: Objective Labs Labs: Short CBC 06/23/23 Range/Units 04:30 WBC 6.6 (4.0-11.0) 10^3/uL Hgb 13.4 L (14.0-18.0) g/dL Hct 40.4 L (42.0-54.0) % Plt Count 165 (150-450) 10^3/uL BMP 06/23/23 04:30 Sodium 138 Potassium 3.6 Chloride 103 Carbon Dioxide 29.2 BUN 28.0 H Creatinine 1.13 Glucose 122 H Calcium 8.8 Liver Function 06/23/23 Range/Units 04:30 Total Bilirubin 0.6 (0.2-1.0) mg/dL AST 23 (15-37) U/L ALT 31 (16-63) U/L Alkaline Phosphatase 66 (46-116) U/L Albumin 2.7 L (3.4-5.0) g/dL Progress Note: A&P Assessment and Plan (1) Abscess: Assessment and Plan: patient's inflammatory markers are downtrending and WBC remains WNL vitals also remained stable over the last twenty-four hours Cultures from surgery pending however cultures obtained on 06/17 & 06/19 (in my office) resulted in staph aureus Currently on Rocephin and tolerating well (2) Acute kidney injury superimposed on CKD: (3) Diabetes: (4) Hypertension: (5) COPD (chronic obstructive pulmonary disease): (6) Chronic systolic (congestive) heart failure: (7) CAD (coronary artery disease): (8) Stage 3a chronic kidney disease (CKD): Plan patient seen at bedside and Dr. Barrera notified of plan Patient may be out of bed to chair and to the bathroom Plan for repeat debridement and hopeful delayed primary closure on Sunday Then patient will likely be discharged home on by mouth antibiotics on Sunday Please call with updates
--- NOTE | 2023-06-23 09:05 | PM.PN ---
Progress Note: Subjective Subjective Interval history: Patient denies any current issues or concerns this morning. slight headache but did get good rest, no fevers or chills. pain is controlled. POD #2 s/p right leg I&D Exam Narrative Exam Narrative: General: Patient is alert, and oriented to person, place and time with normal affect, proper hygiene Heart: Normal rate and rhythm, no murmurs/rubs/gallops Lungs: no audible wheezes, crackles and normal breath sounds all lung ochoa Abdomen: Normal audible bowel sounds, no distension, No palpable masses, no organomegaly, no rebound/guarding/ or rigidity Musculoskeletal: right AKA, with dressing c/d/i Constitutional Vital Signs, click to edit/add: Last Vital Signs Temp 97.4 F L 06/23/23 08:38 Pulse 66 06/23/23 08:38 Resp 18 06/23/23 08:38 BP 130/76 06/23/23 08:38 Pulse Ox 96 06/23/23 08:38 O2 Del Method Room Air 06/23/23 08:38 Progress Note: Objective Labs Labs: Short CBC 06/23/23 Range/Units 04:30 WBC 6.6 (4.0-11.0) 10^3/uL Hgb 13.4 L (14.0-18.0) g/dL Hct 40.4 L (42.0-54.0) % Plt Count 165 (150-450) 10^3/uL BMP 06/23/23 04:30 Sodium 138 Potassium 3.6 Chloride 103 Carbon Dioxide 29.2 BUN 28.0 H Creatinine 1.13 Glucose 122 H Calcium 8.8 Liver Function 06/23/23 Range/Units 04:30 Total Bilirubin 0.6 (0.2-1.0) mg/dL AST 23 (15-37) U/L ALT 31 (16-63) U/L Alkaline Phosphatase 66 (46-116) U/L Albumin 2.7 L (3.4-5.0) g/dL Progress Note: A&P Assessment and Plan (1) Abscess: Assessment and Plan: from staph Aureus from wound culture, continue rocephin, normal wbc's plan for IV antibiotics and take back to OR on sunday. 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 - Type 2 diabetes mellitus with other skin complications; Z79.4 - nursing home (current) use of insulin (4) Hypertension: Assessment and Plan: continue home meds Qualifiers: Hypertension type: primary hypertension Qualified Code(s): I10 - Essential (primary) hypertension (5) COPD (chronic obstructive pulmonary disease): Assessment and Plan: no acute exacerbation, continue home meds Qualifiers: COPD type: unspecified COPD Qualified Code(s): J44.9 - Chronic obstructive pulmonary disease, unspecified (6) Chronic systolic (congestive) heart failure: Assessment and Plan: no signs of fluid overload, continue home meds (7) CAD (coronary artery disease): Assessment and Plan: continue aspirin and atorvastatin (8) Stage 3a chronic kidney disease (CKD): Plan patient is a full code continue IV antibiotics, return to OR Sunday and hopeful discharge after that
[2023-06-23] MEDS: SODIUM HYPOCHLORITE HALF STRENGTH (0.25%) 473 ML BOTTLE 30 ML TOPICAL (09:44)
[2023-06-23] MEDS: DULOXETINE HCL 30 MG CAPSULE.DR PO (09:47)
[2023-06-23] MEDS: MAGNESIUM OXIDE 400 MG TABLET PO (09:47)
[2023-06-23] MEDS: BUMETANIDE 1 MG TABLET PO ×2 (09:47→20:39)
[2023-06-23] MEDS: ALLOPURINOL 100 MG TABLET 200 MG PO (09:47)
[2023-06-23] MEDS: CARVEDILOL 6.25 MG TABLET PO ×2 (09:47→20:40)
[2023-06-23] MEDS: PROSTAT 15 GM PROTEIN/100 CAL 30 ML LIQUID PACKET PO ×2 (09:47→20:39)
[2023-06-23 11:28] LABS: Glucometer 178 mg/dL (74-106)
[2023-06-23] MEDS: INSULIN ASPART 300 UNIT/3 ML PEN SUBQ ×2 (11:52→22:33)
[2023-06-23] MEDS: OXYCODONE HCL/ACETAMINOPHEN 5MG/325MG 1 TAB PO (12:36)
[2023-06-23 15:10] LABS: Glucometer 136 mg/dL (74-106)
[2023-06-23 16:31] LABS: Vancomycin Trough 1.5 ug/mL (5.0-20.0)
[2023-06-23 16:34] LABS: Glucometer 148 mg/dL (74-106)
[2023-06-23] MEDS: 0.9 % SODIUM CHLORIDE 250 ML 10 ML IV (17:25)
[2023-06-23] MEDS: CEFTRIAXONE 1,000 MG in 0.9 % SODIUM CHLORIDE 50 ML 100 MG IV (17:25)
--- NOTE | 2023-06-23 19:45 | RESP.RT ---
No PRN breathing tx given. Pt resting with eyes closed. No respiratory distress noted.
[2023-06-23 20:16] LABS: Glucometer 212 mg/dL (74-106)
[2023-06-23] MEDS: ATORVASTATIN CALCIUM 40 MG TABLET 80 MG PO (20:39)
[2023-06-23] MEDS: OXYCODONE HCL 5 MG TABLET 10 MG PO (20:39)
[2023-06-23] MEDS: INSULIN DETEMIR 300 UNIT/3 ML INSULN.PEN 40 UNIT SUBQ (22:34)
[2023-06-24] VITALS (8 sets, daily range): BP systolic 123–154; BP diastolic 71–86; PULSE 68–74; RESP 16–20; TEMP 36.5–36.8; O2SAT 95–96
[2023-06-24 05:23] LABS: Basophils Percent Auto 0.6 % (0.2-2.0); Eosinophils Absolute Auto 0.5 10^3/uL (0.0-0.7); Eosinophils Percent Auto 7.3 % (0.9-7.0); Hematocrit 42.5 % (42.0-54.0); Hemoglobin 13.8 g/dL (14.0-18.0); Immature Granulocytes Abs Auto 0.04 10^3/uL (0.00-0.03); Immature Granulocytes Pct Auto 0.6 % (0.0-0.5); Lymphocytes Percent Auto 13.7 % (20.5-60.0); Mean Corpuscular HGB Conc 32.5 g/dL (29.9-35.2); Mean Corpuscular Hemoglobin 30.1 pg (25.9-34.0); Mean Corpuscular Volume 92.6 fL (80.0-94.0); Mean Platelet Volume 9.9 fL (9.5-13.5); Monocytes Absolute Auto 0.8 10^3/uL (0.3-0.8); Monocytes Percent Auto 10.9 % (1.7-12.0); Neutrophils Absolute Auto 4.7 10^3/uL (1.4-6.5); Neutrophils Percent Auto 66.9 % (43.0-75.0); Platelet Count 169 10^3/uL (150-450); Red Blood Count 4.59 10^6/uL (4.70-6.10); Red Cell Distribution Width 13.7 % (11.0-15.0); White Blood Count 7.1 10^3/uL (4.0-11.0)
[2023-06-24 05:43] LABS: Alanine Aminotransferase 39 U/L (16-63); Albumin Globulin Ratio 0.7; Albumin Level 2.8 g/dL (3.4-5.0); Alkaline Phosphatase 70 U/L (46-116); Anion Gap 13.3; Aspartate Amino Transferase 31 U/L (15-37); BUN Creatinine Ratio 23.8; Bilirubin Total 0.6 mg/dL (0.2-1.0); Calcium 8.8 mg/dL (8.5-10.1); Carbon Dioxide 29.4 mmol/L (21.0-32.0); Chloride 103 mmol/L (98-107); Estimated GFR (African America >60 (>=60); Estimated GFR (Non-African Ame 55 (>=60); Globulin 3.9 g/dL; Glucose 84 mg/dL (74-106); Potassium 3.7 mmol/L (3.5-5.1); Sodium 142 mmol/L (136-145); Total Protein 6.7 g/dL (6.4-8.2)
--- NOTE | 2023-06-24 08:29 | P.PN_ITS ---
Progress Note: Subjective Subjective Interval history: Patient denies any current issues or concerns this morning. no fevers or chills. pain is controlled. POD #3 s/p right leg I&D, staph on rocephin Exam Narrative Exam Narrative: General: Patient is alert, and oriented to person, place and time with normal affect, proper hygiene Heart: Normal rate and rhythm, no murmurs/rubs/gallops Lungs: no audible wheezes, crackles and normal breath sounds all lung ochoa Abdomen: Normal audible bowel sounds, no distension, No palpable masses, no organomegaly, no rebound/guarding/ or rigidity Musculoskeletal: right AKA, with dressing c/d/i Constitutional Vital Signs, click to edit/add: Last Vital Signs Temp 97.7 F 06/24/23 07:53 Pulse 68 06/24/23 07:53 Resp 16 06/24/23 07:53 BP 123/76 06/24/23 07:53 Pulse Ox 95 06/24/23 07:53 O2 Del Method Room Air 06/24/23 07:53 Progress Note: Objective Labs Labs: Short CBC 06/24/23 Range/Units 04:36 WBC 7.1 (4.0-11.0) 10^3/uL Hgb 13.8 L (14.0-18.0) g/dL Hct 42.5 (42.0-54.0) % Plt Count 169 (150-450) 10^3/uL BMP 06/24/23 04:36 Sodium 142 Potassium 3.7 Chloride 103 Carbon Dioxide 29.4 BUN 31.0 H Creatinine 1.30 Glucose 84 Calcium 8.8 Liver Function 06/24/23 Range/Units 04:36 Total Bilirubin 0.6 (0.2-1.0) mg/dL AST 31 (15-37) U/L ALT 39 (16-63) U/L Alkaline Phosphatase 70 (46-116) U/L Albumin 2.8 L (3.4-5.0) g/dL Progress Note: A&P Assessment and Plan (1) Abscess: Assessment and Plan: from staph Aureus from wound culture, continue rocephin, normal wbc's plan for IV antibiotics and take back to OR (2) Acute kidney injury superimposed on CKD: Assessment and Plan: resolved, cr 1.13 (3) Diabetes: Assessment and Plan: continue insulin Qualifiers: Diabetes mellitus complication detail: with other skin complication Diabetes mellitus complication status: with skin complications Diabetes mellitus intermediate insulin use: with intermediate use Diabetes mellitus type: type 2 Qualified Code(s): E11.628 - Type 2 diabetes mellitus with other skin complications; Z79.4 - nursing home (current) use of insulin (4) Hypertension: Assessment and Plan: continue home meds Qualifiers: Hypertension type: primary hypertension Qualified Code(s): I10 - Essent ial (primary) hypertension (5) COPD (chronic obstructive pulmonary disease): Assessment and Plan: no acute exacerbation, continue home meds Qualifiers: COPD type: unspecified COPD Qualified Code(s): J44.9 - Chronic obst ructive pulmonary disease, unspecified (6) Chronic systolic (congestive) heart failure: Assessment and Plan: no signs of fluid overload, continue home meds (7) CAD (coronary artery disease): Assessment and Plan: continue aspirin and atorvastatin (8) Stage 3a chronic kidney disease (CKD): Plan patient is a full code continue IV antibiotics, return to OR 06/25/23 and hopeful discharge after that
[2023-06-24] MEDS: SODIUM HYPOCHLORITE HALF STRENGTH (0.25%) 473 ML BOTTLE 30 ML TOPICAL (09:08)
[2023-06-24] MEDS: PROSTAT 15 GM PROTEIN/100 CAL 30 ML LIQUID PACKET PO ×2 (09:11→20:28)
[2023-06-24] MEDS: MAGNESIUM OXIDE 400 MG TABLET PO (09:11)
[2023-06-24] MEDS: ALLOPURINOL 100 MG TABLET 200 MG PO (09:11)
[2023-06-24] MEDS: DULOXETINE HCL 30 MG CAPSULE.DR PO (09:11)
[2023-06-24] MEDS: BUMETANIDE 1 MG TABLET PO ×2 (09:11→20:28)
[2023-06-24] MEDS: CARVEDILOL 6.25 MG TABLET PO ×2 (09:11→20:28)
[2023-06-24] MEDS: PREDNISONE 5 MG TABLET PO (09:12)
--- NOTE | 2023-06-24 10:54 | PM.PN ---
Progress Note: Subjective Subjective Interval history: PATIENT DOING WELL and has no complaints. Exam Narrative Exam Narrative: dressing to rightBKA stump is clean dry and intact. No pain on palpation. Constitutional Vital Signs, click to edit/add: Last Vital Signs Temp 97.7 F 06/24/23 07:53 Pulse 68 06/24/23 07:53 Resp 16 06/24/23 07:53 BP 123/76 06/24/23 07:53 Pulse Ox 95 06/24/23 07:53 O2 Del Method Room Air 06/24/23 07:53 Progress Note: Objective Labs Labs: Short CBC 06/24/23 Range/Units 04:36 WBC 7.1 (4.0-11.0) 10^3/uL Hgb 13.8 L (14.0-18.0) g/dL Hct 42.5 (42.0-54.0) % Plt Count 169 (150-450) 10^3/uL BMP 06/24/23 04:36 Sodium 142 Potassium 3.7 Chloride 103 Carbon Dioxide 29.4 BUN 31.0 H Creatinine 1.30 Glucose 84 Calcium 8.8 Liver Function 06/24/23 Range/Units 04:36 Total Bilirubin 0.6 (0.2-1.0) mg/dL AST 31 (15-37) U/L ALT 39 (16-63) U/L Alkaline Phosphatase 70 (46-116) U/L Albumin 2.8 L (3.4-5.0) g/dL Progress Note: A&P Assessment and Plan (1) Abscess: (2) Acute kidney injury superimposed on CKD: (3) Diabetes: Qualifiers: Diabetes mellitus 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 Diabetes mellitus complication status: with skin complications Diabetes mellitus complication detail: with other skin complication Qualified Code(s): E11.628 - Type 2 diabetes mellitus with other skin complications; Z79.4 - retirement (current) use of insulin (4) Hypertension: Qualifiers: Hypertension type: primary hypertension Qualified Code(s): I10 - Essential (primary) hypertension (5) COPD (chronic obstructive pulmonary disease): Qualifiers: COPD type: unspecified COPD Qualified Code(s): J44.9 - Chronic obstructive pulmonary disease, unspecified (6) Chronic systolic (congestive) heart failure: (7) CAD (coronary artery disease): (8) Stage 3a chronic kidney disease (CKD): Plan patient scheduled for repeat I and D versus closure tomorrow Nothing by mouth after midnight Hopeful discharge Sunday Continue current antibiotics Will follow
[2023-06-24 11:05] LABS: Glucometer 145 mg/dL (74-106)
[2023-06-24] MEDS: INSULIN ASPART 300 UNIT/3 ML PEN SUBQ ×3 (11:07→21:33)
[2023-06-24 15:57] LABS: Glucometer 199 mg/dL (74-106)
[2023-06-24] MEDS: CEFTRIAXONE 1,000 MG in 0.9 % SODIUM CHLORIDE 50 ML 100 MG IV (17:22)
[2023-06-24 20:01] LABS: Glucometer 225 mg/dL (74-106)
[2023-06-24] MEDS: ATORVASTATIN CALCIUM 40 MG TABLET 80 MG PO (20:28)
[2023-06-24] MEDS: INSULIN DETEMIR 300 UNIT/3 ML INSULN.PEN 40 UNIT SUBQ (21:34)
[2023-06-25] VITALS (19 sets, daily range): BP systolic 105–150; BP diastolic 62–87; PULSE 64–75; RESP 12–19; TEMP 36.5–36.8; O2SAT 94–99
[2023-06-25 05:38] LABS: Basophils Percent Auto 0.6 % (0.2-2.0); Eosinophils Absolute Auto 0.4 10^3/uL (0.0-0.7); Hematocrit 42.7 % (42.0-54.0); Hemoglobin 14.1 g/dL (14.0-18.0); Immature Granulocytes Abs Auto 0.04 10^3/uL (0.00-0.03); Immature Granulocytes Pct Auto 0.6 % (0.0-0.5); Lymphocytes Absolute Auto 0.9 10^3/uL (1.2-3.8); Lymphocytes Percent Auto 12.6 % (20.5-60.0); Mean Corpuscular Hemoglobin 30.3 pg (25.9-34.0); Mean Corpuscular Volume 91.8 fL (80.0-94.0); Mean Platelet Volume 10.1 fL (9.5-13.5); Monocytes Absolute Auto 0.7 10^3/uL (0.3-0.8); Monocytes Percent Auto 9.3 % (1.7-12.0); Neutrophils Absolute Auto 5.2 10^3/uL (1.4-6.5); Neutrophils Percent Auto 71.9 % (43.0-75.0); Platelet Count 193 10^3/uL (150-450); Red Blood Count 4.65 10^6/uL (4.70-6.10); Red Cell Distribution Width 13.8 % (11.0-15.0); White Blood Count 7.2 10^3/uL (4.0-11.0)
[2023-06-25 05:58] LABS: Alanine Aminotransferase 40 U/L (16-63); Albumin Globulin Ratio 0.7; Albumin Level 2.9 g/dL (3.4-5.0); Alkaline Phosphatase 76 U/L (46-116); Anion Gap 15.3; Aspartate Amino Transferase 29 U/L (15-37); BUN Creatinine Ratio 24.3; Bilirubin Total 0.5 mg/dL (0.2-1.0); Calcium 8.9 mg/dL (8.5-10.1); Carbon Dioxide 27.2 mmol/L (21.0-32.0); Chloride 103 mmol/L (98-107); Estimated GFR (African America >60 (>=60); Estimated GFR (Non-African Ame 51 (>=60); Glucose 89 mg/dL (74-106); Potassium 3.5 mmol/L (3.5-5.1); Sodium 142 mmol/L (136-145); Total Protein 6.9 g/dL (6.4-8.2)
[2023-06-25 07:33] LABS: Glucometer 79 mg/dL (74-106)
[2023-06-25] MEDS: CARVEDILOL 6.25 MG TABLET PO ×2 (08:22→20:15)
--- NOTE | 2023-06-25 08:23 | PM.PN ---
Progress Note: Subjective Subjective Interval history: Patient denies any current issues or concerns this morning. no fevers or chills. pain is controlled. Post op from I&D with closure this morning. no other concerns at this time. Exam Narrative Exam Narrative: General: Patient is alert, and oriented to person, place and time with normal affect, proper hygiene Heart: Normal rate and rhythm, no murmurs/rubs/gallops Lungs: no audible wheezes, crackles and normal breath sounds all lung ochoa Abdomen: Normal audible bowel sounds, no distension, No palpable masses, no organomegaly, no rebound/guarding/ or rigidity Musculoskeletal: right BKA, with dressing c/d/i Constitutional Vital Signs, click to edit/add: Last Vital Signs Temp 97.7 F 06/25/23 04:42 Pulse 65 06/25/23 07:47 Resp 18 06/25/23 04:42 BP 108/62 06/25/23 07:47 Pulse Ox 97 06/25/23 07:47 O2 Del Method Room Air 06/25/23 07:47 Progress Note: Objective Labs Labs: Short CBC 06/25/23 Range/Units 04:30 WBC 7.2 (4.0-11.0) 10^3/uL Hgb 14.1 (14.0-18.0) g/dL Hct 42.7 (42.0-54.0) % Plt Count 193 (150-450) 10^3/uL BMP 06/25/23 04:30 Sodium 142 Potassium 3.5 Chloride 103 Carbon Dioxide 27.2 BUN 34.0 H Creatinine 1.40 H Glucose 89 Calcium 8.9 Liver Function 06/25/23 Range/Units 04:30 Total Bilirubin 0.5 (0.2-1.0) mg/dL AST 29 (15-37) U/L ALT 40 (16-63) U/L Alkaline Phosphatase 76 (46-116) U/L Albumin 2.9 L (3.4-5.0) g/dL Progress Note: A&P Assessment and Plan (1) Abscess: Assessment and Plan: from staph Aureus from wound culture, continue rocephin, normal wbc's plan for oral Augmentin tomorrow (2) Acute kidney injury superimposed on CKD: Assessment and Plan: resolved (3) Diabetes: Assessment and Plan: continue insulin, relating to #1 Qualifiers: Diabetes mellitus complication detail: with other skin complication Diabetes mellitus complication status: with skin complications Diabetes mellitus skilled nursing insulin use: with skilled nursing use Diabetes mellitus type: type 2 Qualified Code(s): E11.628 - Type 2 diabetes mellitus with other skin complications; Z79.4 - longterm (current) use of insulin (4) Hypertension: Assessment and Plan: continue home meds Qualifiers: Hypertension type: primary hypertension Qualified Code(s): I10 - Essential (primary) hypertension (5) COPD (chronic obstructive pulmonary disease): Assessment and Plan: no acute exacerbation, continue home meds Qualifiers: COPD type: unspecified COPD Qualified Code(s): J44.9 - Chronic obstructive pulmonary disease, unspecified (6) Chronic systolic (congestive) heart failure: Assessment and Plan: no signs of fluid overload, continue home meds (7) CAD (coronary artery disease): Assessment and Plan: continue aspirin and atorvastatin (8) Stage 3a chronic kidney disease (CKD): Plan patient is a full code continue IV antibiotics, discharge home tomorrow on
[2023-06-25] MEDS: LACTATED RINGER'S SOLUTION 1,000 ML 50 ML IV (08:52)
--- NOTE | 2023-06-25 09:20 | PC.NURSE ---
Left for OR at 0910
[2023-06-25] MEDS: LIDOCAINE HCL 1% 100 MG/10 ML MDV INJ (11:07)
[2023-06-25] MEDS: BUPIVACAINE HCL 0.5% PF 50 MG/10 ML VIAL INJ (11:08)
--- NOTE | 2023-06-25 11:29 | PM.ORONB ---
Brief Operative Note Date of procedure: 06/25/23 Pre-op diagnosis: right leg abscess, & wound Post-op diagnosis: same as pre-op Procedure: PROCEDURES PERFORMED: delayed primary closure of right leg wound INTRAOPERATIVE FINDINGS: Preoperative wound measurements 4.5 x 0.4 x 1.0 cm. wound was healthy and granular with no signs of infection. Wound edges bled appropriately. No bone exposure but wound was down to level of muscle PROCEDURE IN DETAIL: Patient was identified in pre op and consent was reviewed. Correct side and site were identified and marked. Pre-op antibiotics were started. Patient was brought to OR suite and place on table in a supine position. General anesthesia was administered. Operative extremity was prepped and draped in usual sterile fashion. Formal time-out was performed. Utilizing a scalpel, the wound on the right lateral leg was excised to healthy granular tissue. wound did involve muscle and extend past the deep fascia but no bone was exposed. All aspects the wound were curetted until one hundred percent healthy granular tissue. No evidence of pus or soft tissue necrosis. the wound was irrigated with 3 L normal saline on pulse lavage. Vancomycin powder was then placed into the wound. the wound did track proximally 1 cm however this as well as the remaining wound was able to be closed completely with skin suture. A dry sterile dressing consisting of Xeroform on the incisions followed by 4 x 4 gauze, Kerlix and Ezra wrap were applied. Patient tolerated the procedure and anesthesia well transferred to the recovery room with vital signs stable. POSTOPERATIVE PLAN: transfer to medical surgical unit nonweightbearing and patient should avoid using his prosthesis until the wound is healed Patient will be likely discharged home tomorrow on oral antibiotics Follow-up in wound center within a week from discharge Anesthesia: ROEL Surgeon: Heraclio Hernandez Estimated blood loss (mL): 25 Tourniquet time (min): 0 Pathology: none sent Condition: stable Disposition: PACU
[2023-06-25] MEDS: VANCOMYCIN HCL 500 MG VIAL 1000 MG TOPICAL (11:36)
--- NOTE | 2023-06-25 11:36 | CM.NOTE ---
Rounds made with Dr. Barrera, pt is still in OR. Dr. Barrera will discuss plan of care with Dr. Hernandez after surgery.
--- NOTE | 2023-06-25 11:46 | CM.NOTE ---
2nd Notice for Important Message From Medicare discussed with pt, pt denies any questions or concerns.
[2023-06-25 12:00] LABS: Glucometer 98 mg/dL (74-106)
[2023-06-25] MEDS: OXYCODONE HCL 5 MG TABLET 10 MG PO ×2 (12:06→20:14)
--- NOTE | 2023-06-25 12:11 | PC.NURSE ---
patient returned from surgery at 11:55, vital signs will be taken every 15 minutes
--- NOTE | 2023-06-25 14:38 | DIETREC ---
Pt w/sx wound and infection. Recommend 2000 kcal CCD diet; continue 30 mL PRO-stat BID; add 1 packet Boby BID. Ordered by physician 06/25/23.
[2023-06-25 16:24] LABS: Glucometer 131 mg/dL (74-106)
[2023-06-25] MEDS: 0.9 % SODIUM CHLORIDE 250 ML 10 ML IV (16:29)
[2023-06-25] MEDS: CEFTRIAXONE 1,000 MG in 0.9 % SODIUM CHLORIDE 50 ML 100 MG IV (16:32)
[2023-06-25 19:55] LABS: Glucometer 180 mg/dL (74-106)
[2023-06-25] MEDS: PROSTAT 15 GM PROTEIN/100 CAL 30 ML LIQUID PACKET PO (20:14)
[2023-06-25] MEDS: ATORVASTATIN CALCIUM 40 MG TABLET 80 MG PO (20:14)
[2023-06-25] MEDS: JUVEN PACKET 1 PACKET PO (20:14)
[2023-06-25] MEDS: BUMETANIDE 1 MG TABLET PO (20:14)
[2023-06-25] MEDS: INSULIN DETEMIR 300 UNIT/3 ML INSULN.PEN 40 UNIT SUBQ (20:18)
[2023-06-25] MEDS: INSULIN ASPART 300 UNIT/3 ML PEN SUBQ (20:18)
[2023-06-26 04:08] VITALS: TEMP 36.8
[2023-06-26 04:09] VITALS: BP 124/70; PULSE 82; RESP 20; TEMP 36.6; O2SAT 96
[2023-06-26 05:07] LABS: C-Reactive Protein, Cardiac 9.28 mg/L (0.00-3.00)
[2023-06-26 07:49] LABS: Glucometer 72 mg/dL (74-106)
[2023-06-26 08:00] VITALS: RESP 16
[2023-06-26] MEDS: JUVEN PACKET 1 PACKET PO (08:10)
[2023-06-26] MEDS: PROSTAT 15 GM PROTEIN/100 CAL 30 ML LIQUID PACKET PO (08:10)
[2023-06-26] MEDS: MAGNESIUM OXIDE 400 MG TABLET PO (08:12)
[2023-06-26 08:13] VITALS: BP 143/78
[2023-06-26] MEDS: DULOXETINE HCL 30 MG CAPSULE.DR PO (08:13)
[2023-06-26] MEDS: BUMETANIDE 1 MG TABLET PO (08:13)
[2023-06-26] MEDS: CARVEDILOL 6.25 MG TABLET PO (08:15)
[2023-06-26] MEDS: ALLOPURINOL 100 MG TABLET 200 MG PO (08:15)
[2023-06-26] MEDS: PREDNISONE 5 MG TABLET PO (08:15)
[2023-06-26 08:18] VITALS: BP 143/78; PULSE 69; RESP 16; TEMP 36.6; O2SAT 97
[2023-06-26 09:09] LABS: Basophils Percent Auto 0.4 % (0.2-2.0); Eosinophils Absolute Auto 0.5 10^3/uL (0.0-0.7); Eosinophils Percent Auto 7.2 % (0.9-7.0); Hematocrit 46.4 % (42.0-54.0); Hemoglobin 14.9 g/dL (14.0-18.0); Immature Granulocytes Abs Auto 0.03 10^3/uL (0.00-0.03); Immature Granulocytes Pct Auto 0.4 % (0.0-0.5); Lymphocytes Absolute Auto 0.7 10^3/uL (1.2-3.8); Lymphocytes Percent Auto 10.8 % (20.5-60.0); Mean Corpuscular HGB Conc 32.1 g/dL (29.9-35.2); Mean Corpuscular Hemoglobin 30.1 pg (25.9-34.0); Mean Corpuscular Volume 93.7 fL (80.0-94.0); Mean Platelet Volume 9.9 fL (9.5-13.5); Monocytes Absolute Auto 0.6 10^3/uL (0.3-0.8); Monocytes Percent Auto 8.6 % (1.7-12.0); Neutrophils Percent Auto 72.6 % (43.0-75.0); Platelet Count 182 10^3/uL (150-450); Red Blood Count 4.95 10^6/uL (4.70-6.10); Red Cell Distribution Width 13.9 % (11.0-15.0); White Blood Count 6.8 10^3/uL (4.0-11.0)
[2023-06-26 09:51] LABS: Alanine Aminotransferase 47 U/L (16-63); Albumin Globulin Ratio 0.8; Albumin Level 3.3 g/dL (3.4-5.0); Alkaline Phosphatase 86 U/L (46-116); Anion Gap 16.9; Aspartate Amino Transferase 35 U/L (15-37); BUN Creatinine Ratio 27.2; Bilirubin Total 0.6 mg/dL (0.2-1.0); Calcium 9.1 mg/dL (8.5-10.1); Carbon Dioxide 26.1 mmol/L (21.0-32.0); Chloride 101 mmol/L (98-107); Estimated GFR (African America >60 (>=60); Estimated GFR (Non-African Ame 58 (>=60); Globulin 4.2 g/dL; Glucose 146 mg/dL (74-106); Sodium 140 mmol/L (136-145); Total Protein 7.5 g/dL (6.4-8.2)
--- NOTE | 2023-06-26 09:58 | SWNOTE1 ---
SW received message from case management and pt will need home health, skilled nurse for potential wound care/dressing changes. At this time dressing is supposed to be clean dry and intact until follow up. Dr. Barrera reaching out to Dr. Hernandez to see if there is any other dressing changes. [facility]KO sent referral to [facility].
--- NOTE | 2023-06-26 10:06 | SWNOTE1 ---
Pt did not have a preference on home health company. Referral included face sheet, ED note, H&P, all operative notes, progress note from hospitalist, and progress note from Dr. Hernandez.
--- NOTE | 2023-06-26 10:10 | CM.NOTE ---
Rounds made with Dr. Barrera, pt will discharge to home today. Discussed with pt discharge planning and HH services for dressing changes. Pt is in agreement to HH services. Pt does not have a preference.
--- NOTE | 2023-06-26 10:41 | P.PN_ITS ---
Progress Note: Subjective Subjective Interval history: Patient examined evaluated bedside this a.m. resting comfortably. POD #1 s/p repeat irrigation and debridement with delayed primary closure right leg DOS 06/25/2023. He denies any acute events overnight. States is having moderate pain directly to the incision site of the right leg controlled with p.o. meds. States he feels well overall and denies any other acute lower extremity complaints and denies any constitutional symptoms at time of visit. Exam Narrative Exam Narrative: R BKA w/ RLE dressing left CDI. No strikethrough. No erythema edema or ecchymosis proximal to RLE stump dressing. No pain with palpation of popliteal fossa or thigh compression. Constitutional Vital Signs, click to edit/add: Last Vital Signs Temp 97.9 F 06/26/23 08:18 Pulse 69 06/26/23 08:18 Resp 16 06/26/23 08:18 BP 143/78 H 06/26/23 08:18 Pulse Ox 97 06/26/23 08:18 O2 Del Method Room Air 06/26/23 08:18 Progress Note: Objective Labs Labs: Short CBC 06/26/23 Range/Units 08:47 WBC 6.8 (4.0-11.0) 10^3/uL Hgb 14.9 (14.0-18.0) g/dL Hct 46.4 (42.0-54.0) % Plt Count 182 (150-450) 10^3/uL BMP 06/26/23 08:47 Sodium 140 Potassium 4.0 Chloride 101 Carbon Dioxide 26.1 BUN 34.0 H Creatinine 1.25 Glucose 146 H Calcium 9.1 Liver Function 06/26/23 Range/Units 08:47 Total Bilirubin 0.6 (0.2-1.0) mg/dL AST 35 (15-37) U/L ALT 47 (16-63) U/L Alkaline Phosphatase 86 (46-116) U/L Albumin 3.3 L (3.4-5.0) g/dL Progress Note: A&P Assessment and Plan (1) Abscess: (2) Acute kidney injury superimposed on CKD: (3) Diabetes: Qualifiers: Diabetes mellitus type: type 2 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 Diabetes mellitus complication status: with skin complications Diabetes mellitus complication detail: with other skin complication Qualified Code(s): E11.628 - Type 2 diabetes mellitus with other skin complications; 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 All findings discussed with patient and all questions answered by satisfaction. Pertinent labs and imaging reviewed. RLE dressing Left CDI until follow-up. Maintain nonweightbearing to the right lower extremity, may use the knee scooter on the right side for ambulation. Pain control with p.o. oxycodone. IntraOp cultures with pansensitive staph, currently on IV the Rocephin, plan for DC on p.o. Augmentin. Stable to DC from podiatry's perspective with follow-up in the wound center within 1 week of DC. Pain medication and antibiotics sent to patient's pharmacy on file. Rest per primary, please call with questions or concerns.
[2023-06-26 10:54] LABS: Glucometer 206 mg/dL (74-106)
--- NOTE | 2023-06-26 11:11 | P.DS_ITS ---
<Statement entered by Cara Barrera DO - 06/26/23 16:10> This documentation has been reviewed and approved. I also seen and evaluated patient at the time of discharge and agree with the above findings and discharge. 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 mellitus 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 marine oil terminal insulin use: with 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 marine oil terminal use Diabetes mellitus type: type 2 Qualified Code(s): 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 - Type 2 diabetes mellitus with other skin complications; Z79.4 - detention (current) use of insulin (4) Hypertension: Qualifiers: Hypertension type: primary hypertension Qualified Code(s): I10 - Essential (primary) hypertension (5) COPD (chronic obstructive pulmonary disease): Qualifiers: COPD type: unspecified COPD Qualified Code(s): J44.9 - Chronic obstructive pulmonary disease, unspecified (6) Chronic systolic (congestive) heart failure: (7) CAD (coronary artery disease): (8) Stage 3a chronic kidney disease (CKD): DS: Summary Hospital Course Hospital Course: The patient was admitted with a nonhealing diabetic abscess of his right BKA stump. He was initially treated with IVPB Zosyn and Vanco pending wound culture results. Dr Hernandez, valving machine operator and grain origination specialist, was consulted. The patient was taken to the OR for a deep I&D on 06/21/2023. A wound VAC was placed and closure was delayed after surgery. Antibiotics were de-escalated to Rocephin based on cultures obtained in Dr Hernandez's office prior to admission that revealed pansensitive staph. The patient was returned to the OR on 06/25/2023 for a repeat I&D and closure of the wound. The patient did well postoperatively. He is being discharged home in stable condition on Augmentin for 14 more days per the final wound cultures obtained intraoperatively that are growing pansensitive Staph aureus. Home health services have been obtained after discharge for residential assistance with monitoring the wound and dressing changes. The patient should follow-up with Dr Hernandez in 1-2 weeks. He should remain nonweightbearing and avoid using his prosthesis until given clearance by Dr Hernandez. Time Spent with Patient Time attestation: Total time spent providing and/or coordinating discharge services: Time spent: greater than 30 minutes Specific discharge activities: Physical exam, discussion of discharge plan, questions answered. Exam Constitutional Vital Signs, click to edit/add: Last Vital Signs Temp 97.9 F 06/26/23 08:18 Pulse 69 06/26/23 08:18 Resp 16 06/26/23 08:18 BP 143/78 H 06/26/23 08:18 Pulse Ox 97 06/26/23 08:18 O2 Del Method Room Air 06/26/23 08:18 Common normals: no apparent distress, oriented x3 and alert General appearance: cooperative Orientation/consciousness: Yes awake HENMT Common normals: normocephalic and head/scalp atraumatic Eye Common normals: PERRL, EOMs intact bilaterally, conjunctivae normal and no scleral icterus Neck & C-Spine Common normals: no JVD Respiratory Common normals: normal respiratory effort, no use of accessory muscles and clear to auscultation bilaterally Effort & inspection: able to speak in complete sentences and symmetric chest movement Cardio Common normals: no JVD, regular rate, regular rhythm, S1 normal heart sound, S2 normal heart sound, no murmurs and peripheral pulses 2+ throughout GI Common normals: Normal to inspection, nondistended, normoactive bowel sounds present, soft to palpation and non-tender Palpation: soft Bladder/kidney exam: bladder normal to palpation Extremity Common normals: full ROM and normal capillary refill General: no clubbing and no cyanosis Right lower extremity: knee joint (Remote BKA. Dressing to R stump D&I) Left lower extremity: foot and digits (L forefoot amp) Neuro Common normals: moves all extremities, no focal motor deficits and no sensory deficits noted Speech: speech normal Psych Common normals: mental status grossly normal and activity/motor behavior normal DS: Data Data Completed and Pending Labs on day of discharge: Labs from last 24 hours 06/26/23 06/26/23 06/26/23 10:53 08:47 07:49 WBC 6.8 RBC 4.95 Hgb 14.9 Hct 46.4 MCV 93.7 MCH 30.1 MCHC 32.1 RDW 13.9 Plt Count 182 MPV 9.9 Neut % (Auto) 72.6 Lymph % (Auto) 10.8 L [place] % (Auto) 8.6 Eos % (Auto) 7.2 H Baso % (Auto) 0.4 Neut # (Auto) 5.0 Lymph # (Auto) 0.7 L [place] # (Auto) 0.6 Eos # (Auto) 0.5 Baso # (Auto) 0.0 Abs Immat Gran (auto) 0.03 Imm/Tot Granulo (auto) 0.4 Sodium 140 Potassium 4.0 Chloride 101 Carbon Dioxide 26.1 Anion Gap 16.9 BUN 34.0 H Creatinine 1.25 Est GFR ( Amer) >60 Est GFR (Non-Af Amer) 58 L BUN/Creatinine Ratio 27.2 Glucose 146 H Calcium 9.1 Total Bilirubin 0.6 AST 35 ALT 47 Alkaline Phosphatase 86 C-React Prot High Sens Total Protein 7.5 Albumin 3.3 L Globulin 4.2 Albumin/Globulin Ratio 0.8 POC Glucose 206 H 72 L 06/25/23 06/25/23 06/25/23 19:49 16:19 11:59 WBC RBC Hgb Hct MCV MCH MCHC RDW Plt Count MPV Neut % (Auto) Lymph % (Auto) [place] % (Auto) Eos % (Auto) Baso % (Auto) Neut # (Auto) Lymph # (Auto) [place] # (Auto) Eos # (Auto) Baso # (Auto) Abs Immat Gran (auto) Imm/Tot Granulo (auto) Sodium Potassium Chloride Carbon Dioxide Anion Gap BUN Creatinine Est GFR ( Amer) Est GFR (Non-Af Amer) BUN/Creatinine Ratio Glucose Calcium Total Bilirubin AST ALT Alkaline Phosphatase C-React Prot High Sens Total Protein Albumin Globulin Albumin/Globulin Ratio POC Glucose 180 H 131 H 98 06/25/23 09:50 WBC RBC Hgb Hct MCV MCH MCHC RDW Plt Count MPV Neut % (Auto) Lymph % (Auto) [place] % (Auto) Eos % (Auto) Baso % (Auto) Neut # (Auto) Lymph # (Auto) [place] # (Auto) Eos # (Auto) Baso # (Auto) Abs Immat Gran (auto) Imm/Tot Granulo (auto) Sodium Potassium Chloride Carbon Dioxide Anion Gap BUN Creatinine Est GFR ( Amer) Est GFR (Non-Af Amer) BUN/Creatinine Ratio Glucose Calcium Total Bilirubin AST ALT Alkaline Phosphatase C-React Prot High Sens 9.28 H Total Protein Albumin Globulin Albumin/Globulin Ratio POC Glucose Preliminary micro results at discharge 06/21/23 14:10 - Preliminary Leg Right Discharge Plan Discharge Disposition: Home Health Service Condition: Good Discharge Medications: New tramadol 50 mg tablet 50 mg PO Q6H PRN (Reason: pain) 7 Days Qty: 28 0RF amoxicillin-pot clavulanate [Augmentin] 500-125 mg tablet 1 tab PO BID 14 Days Qty: 28 0RF Continued albuterol sulfate [ProAir HFA] 90 mcg/actuation HFA aerosol inhaler 2 inh inhalation Q6H PRN (Reason: shortness of breath or wheezing) allopurinol 100 mg tablet 200 mg PO DAILY ascorbic acid (vitamin C) 500 mg capsule 500 mg PO DAILY aspirin [Adult Aspirin Regimen] 81 mg tablet,delayed release (DR/EC) 81 mg PO DAILY atorvastatin 80 mg tablet 80 mg PO DAILY bumetanide 2 mg tablet 1 mg PO BID carvedilol 6.25 mg tablet 6.25 mg PO BID Rx Instructions: must administer with a meal/food cholecalciferol (vitamin D3) 125 mcg (5,000 unit) capsule 5,000 unit PO DAILY coQ10 (ubiquinol) [Qunol Cory CoQ10] 100 mg capsule 100 mg PO DAILY dapagliflozin propanediol [Farxiga] 10 mg tablet 10 mg PO DAILY fluticasone furoate-vilanterol [Breo Ellipta] 200-25 mcg/dose blister with device 1 inh inhalation DAILY PRN (Reason: increased sob) losartan [Cozaar] 25 mg tablet 25 mg PO DAILY magnesium oxide 400 mg magnesium capsule 400 mg PO DAILY multivitamin [Daily Multi-Vitamin] Tablet 1 tab PO DAILY nitroglycerin [Nitrostat] 0.4 mg tablet, sublingual 0.4 mg sublingual Q5M Rx Instructions: do not exceed 3 doses per episode prednisone 5 mg tablet 5 mg PO .COMPLEX Rx Instructions: 5 mg orally Every other day; spironolactone 25 mg tablet 25 mg PO DAILY duloxetine 30 mg capsule,delayed release(DR/EC) 30 mg PO DAILY insulin lispro 100 unit/mL insulin pen, half-unit 15 unit SUBCUT TIDWM Rx Instructions: WITH MEALS insulin glargine [Lantus U-100 Insulin] 100 unit/mL solution 40 unit SUBCUT .qhs Print Language: Setswana Patient Instructions: Amoxicillin (By mouth), Tramadol (By mouth), Abscess (ED) Activity Restrictions/Additional Instructions: - Dressing changes per Home Health nursing QOD: Xeroform, dry sterile gauze, ABD, Kerlix and Ezra wrap for compression. Call Dr Hernandez's office with any concerns - NWB to RLE. 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 Phone number is [phone]. They should contact within 48 hours to schedule first visit. Forms: Portal Instructions Follow Up Appointments: July 02 @ 1pm at [facility] [address] Horacio Gimenez [phone] Discharge Date/Time: 06/26/23 13:25
--- NOTE | 2023-06-26 15:00 | SWNOTE1 ---
[facility] is able to accept, will need to learn dressing changes. FLAKO verified with that can do dressing changes, he voiced yes. FLAKO sent CRF, dc med rec, and podiatry note from today to [facility].
--- NOTE | 2023-06-27 16:15 | CM.DCFOLLOWU ---
Person spoke with: patient How are you feeling? well How is your pain? no pain Did you understand your discharge instructions? yes Do you have any questions about your discharge instructions? no Were you given any prescriptions at discharge? yes Were you able to get your prescriptions filled? yes Do you understand how to take your medications as ordered? yes Do you have any questions about your follow up appointment and do you plan to keep your follow up appointment? no questions, follow up on 07/03/23 with wound center and [facility] has been to home Is there anything else that you would like to discuss? no Questions/Comments/Concerns/Other: N/A
== END 2023-06-26 13:25 | disposition home health service (06) | DRG 623 ==
LOC: ER 11:21 → MS 06-21 08:36
PROVIDERS: Family Medicine; Nurse Practitioner; Podiatrist Foot & Ankle Surgery; Admitting Provider Family Medicine; Emergency Provider Emergency Medicine; PCP Internal Medicine; Visit Provider Family Medicine
PROC: 0JBN0ZZ Excision of Right Lower Leg Subcutaneous Tissue and Fascia, Open Approach (ICD-10-PCS; principal; 2023-06-21 11:00)
PROC: 0JQN0ZZ Repair Right Lower Leg Subcutaneous Tissue and Fascia, Open Approach (ICD-10-PCS; principal; 2023-06-25 09:35)
DX: E11.628 Type 2 diabetes mellitus with other skin complications (principal); I13.0 Hypertensive heart and chronic kidney disease with heart failure and stage 1 through stage 4 chronic kidney disease, or unspecified chronic kidney disease; I50.22 Chronic systolic (congestive) heart failure; L02.415 Cutaneous abscess of right lower limb; L97.818 Non-pressure chronic ulcer of other part of right lower leg with other specified severity; N17.9 Acute kidney failure, unspecified; B95.61 Methicillin susceptible Staphylococcus aureus infection as the cause of diseases classified elsewhere; E11.40 Type 2 diabetes mellitus with diabetic neuropathy, unspecified; E11.22 Type 2 diabetes mellitus with diabetic chronic kidney disease; E11.65 Type 2 diabetes mellitus with hyperglycemia; N18.31 Chronic kidney disease, stage 3a; I25.10 Atherosclerotic heart disease of native coronary artery without angina pectoris; J44.9 Chronic obstructive pulmonary disease, unspecified; I25.2 Old myocardial infarction; Z86.14 Personal history of Methicillin resistant Staphylococcus aureus infection; Z79.4 Long term (current) use of insulin; Z79.01 Long term (current) use of anticoagulants; Z79.82 Long term (current) use of aspirin; Z79.52 Long term (current) use of systemic steroids; Z79.899 Other long term (current) drug therapy; Z88.1 Allergy status to other antibiotic agents; Z88.5 Allergy status to narcotic agent; Z88.8 Allergy status to other drugs, medicaments and biological substances; Z95.810 Presence of automatic (implantable) cardiac defibrillator; Z95.5 Presence of coronary angioplasty implant and graft; Z89.511 Acquired absence of right leg below knee; E11.622 Type 2 diabetes mellitus with other skin ulcer; M25.561 Pain in right knee; M17.11 Unilateral primary osteoarthritis, right knee
CPT/HCPCS: 10061; 36415; 71045; 73560; 80048; 80053; 80202; 82948; 83036; 83605; 84145; 84484; 85007; 85025; 85027; 85652; 86140; 87040; 87070; 87076; 87102; 87116; 87150; 87186; 87206; 93005; 93306; 96365; 96366; 96367; 96376; 97605; 99285; 99999; A6213; A9272; G0378; G0463; J2704; J3370

== ENCOUNTER 2023-07-03 13:29 | Outpatient (OUT) | payer MEDICARE, SELFPAY | END 2023-07-03 13:30 | disposition home or self-care (01) | LOC: WC 13:29 | PROVIDERS: PCP Internal Medicine; Visit Provider Podiatrist Foot & Ankle Surgery | DX: E11.622 Type 2 diabetes mellitus with other skin ulcer (principal); L97.818 Non-pressure chronic ulcer of other part of right lower leg with other specified severity | CPT/HCPCS: A6213; G0463 ==

== ENCOUNTER 2023-07-10 15:54 | Outpatient (OUT) | payer MEDICARE, SELFPAY | END 2023-07-10 15:55 | disposition home or self-care (01) | LOC: WC 15:54 | PROVIDERS: PCP Internal Medicine; Visit Provider Podiatrist Foot & Ankle Surgery | DX: E11.622 Type 2 diabetes mellitus with other skin ulcer (principal); L97.818 Non-pressure chronic ulcer of other part of right lower leg with other specified severity | CPT/HCPCS: A6213; G0463 ==

== ENCOUNTER 2023-07-24 15:56 | Outpatient (OUT) | payer MEDICARE, SELFPAY | END 2023-07-24 15:57 | disposition home or self-care (01) | LOC: WC 15:56 | PROVIDERS: PCP Internal Medicine; Visit Provider Podiatrist Foot & Ankle Surgery | DX: E11.622 Type 2 diabetes mellitus with other skin ulcer (principal); L97.818 Non-pressure chronic ulcer of other part of right lower leg with other specified severity; M71.071 Abscess of bursa, right ankle and foot; B96.89 Other specified bacterial agents as the cause of diseases classified elsewhere | CPT/HCPCS: A6213; G0463 ==

== ENCOUNTER 2023-08-07 15:40 | Outpatient (OUT) | payer MEDICARE, SELFPAY | END 2023-08-07 15:41 | disposition home or self-care (01) | LOC: WC 15:40 | PROVIDERS: PCP Internal Medicine; Visit Provider Podiatrist Foot & Ankle Surgery | DX: L60.3 Nail dystrophy (principal); E11.69 Type 2 diabetes mellitus with other specified complication; B35.1 Tinea unguium; M20.41 Other hammer toe(s) (acquired), right foot; L03.818 Cellulitis of other sites | CPT/HCPCS: G0463 ==

== ENCOUNTER 2023-08-27 10:30 | Inpatient (IN) | payer MEDICARE, SELFPAY ==
[2023-08-27] VITALS (49 sets, daily range): BP systolic 101–135; BP diastolic 58–81; PULSE 78–98; TEMP 36.8–38.7; O2SAT 90–97; BMI 29.8; BMI 30.4
--- OUTSIDE RECORDS SUMMARY | 2023-08-27 10:42 | XMS_ITS | CCD ---
Author Organization [facility] Inform ion Partnership [facility] Care Team Providers [facility] Display Builder Name Role Phone DEON BRAXTON Primary Care [...] Attending Provider DO Reddy Brandt Referring Provider [phone] CRISTINA Bailey Attending Provider DO Reddy Brandt Admit Provider NBA Hope Other Provider Unavailable NBA Ruiz Other Provider Unavailable NBA Sorensen Other Provider Unavailable NBA Jasso Other Provider Unavailable NBA Frederick Other Provider Unavailable NBA Parmar Other Provider Unavailable MD Fredi Mendez Other Provider KRUNAL Galvin Other Provider [phone] DO Julia Segura Other Provider MD Armando Hanks Other Provider [phone] DO Golden Whatley Other Provider MD Adi Feng Other Provider MD Letty Turpin Other Provider [phone] Polly ANP- Faviola Other Provider [phone] MD Brett Muñoz Other Provider MD Dennis Larson Other Provider MD Rodriguez Loera Other Provider MD Cuauhtemoc Ramos Other Provider MD Darien Maria Other Provider MD Stewart Lucio Other Provider MD Sonido Murillo Other Provider Reba, METAL RIVETER-C Mai Vega Other Provider MD Christiano Evans Other Provider MD Isidro Antunez Other Provider MD Rosalind Coburn Other Provider MD Bill Osei Other Provider DO Lizbeth Mcbride Other Provider Al MD Fabio Fernandez Other Provider DO Kwesi Muhammad Other Provider KRUNAL Patel Other Provider DO Bin Carrera Other Provider MD Patti Taylor Other Provider [phone] NBA Munoz Other Provider Unavailable BALJEET LEONG Admitting UnavailBALJEET Moss Attending UnavailDR DEON Au Primary Care Unavailable DR DEON BRAXTON Primary Care Unavailable SALINA LEE Consulting Unavailable SALINA LEE Attending Unavailable SALINA LEE Admitting Unavailable WOODY, AMAR Consulting Unavailable WOODY, AMAR Attending Unavailable ENMANUEL MCKAY Admitting Unavailable IRAIS, DR CHAVARRIA Primary Care Unavailable BALJEET LEONG Consulting Unavailabl e CLOUNAERTYBALJEET Attending Unavailabl e CLOUNAERTYBALJEET Admitting Unavailabl e YUMARVAS, DR CHAVARRIA Primary Care Unavailable YUDONNA, DR CHAVARRIA Primary Care Unavailable LEON, DR CLEMENTS Consulting Unavailable BLANK, DR CLEMENTS Attending Unavailable BLANK, DR CLEMENTS Admitting Unavailable CLOBALJEET SIERRA O Attending Unavailabl e CLOUGHERTYBALJEET Admitting Unavailabl e YUMARVAS, DR CHAVARRIA Primary Care Unavailable SALO, BALJEET Payan Admitting Unavailabl e YUHAS, DR CHAVARRIA Primary Care Unavailable BALJEET LEONG Attending Unavailabl e SALINA LEE Attending Unavailable IRAIS, DR CHAVARRIA Primary Care Unavailable SALINA LEE Consulting Unavailable SALINA LEE Admitting Unavailable SALINA LEE Attending Unavailable IRAIS, DR CHAVARRIA Primary Care Unavailable SALINA LEE Admitting Unavailable JESUS, SALINA Walker Attending Unavailable IRAIS, DR CHAVARRIA Primary Care Unavailable SALINA LEE Admitting Unavailable BALJEET LEONG Admitting Unavailabl e CLOBALJEET SIERRA Attending Unavailabl clarissa SHERIFF, DR ANAI Edmond Consulting Unavailable IRAIS, DR CHAVARRIA Primary Care Unavailable BALJEET LEONG Consulting Unavailabl e YUMARVAS, DR CHAVARRIA Primary Care Unavailable SALINA LEE Attending Unavailable JAZIEL, DR ANAI Emdond Consulting Unavailable SALINA LEE Admitting Unavailable SALINA LEE Consulting Unavailable BALJEET LEONG Attending Unavailabl e BALJEET LEONG Admitting Unavailabl e JAZIEL, DR ANAI Edmond Consulting Unavailable IRAIS, DR CHAVARRIA Primary Care Unavailable BALJEET LEONG O Consulting Unavailabl e CLOUGHERTYBALJEET O Admitting Unavailabl e CLOBALJEET SIERRA O Consulting Unavailabl e CLOBALJEET SIERRA Attending Unavailabl e IRAIS, DR CHAVARRIA Primary Care Unavailable BALJEET LEONG Attending Unavailabl e CLOUGHERTYBALJEET O Admitting Unavailabl e YUHAS, DR CHAVARRIA Primary Care Unavailable BALJEET LEONG Attending Unavailabl e IRAIS, DR CHAVARRIA Primary Care Unavailable BALJEET LEONG Admitting Unavailabl e YUHAS, DR CHAVARRIA Primary Care Unavailable JESUS, SALINA Walker Attending Unavailable SALINA LEE Admitting Unavailable YUHAS, DR CHAVARRIA Primary Care Unavailable [facility] Walker Attending Unavailable HIGHLANDERSALINA Admitting Unavailable CLOUNAERTYBALJEET Attending Unavailabl e CLOBALJEET SIERRA Admitting Unavailabl e YUDONNA, DR CHAVARRIA Primary Care Unavailable CLOMARIELA, BALJEET O Admitting Unavailabl e CLOUGHERTY, BALJEET O Attending Unavailabl e YUDONNA, DR CHAVARRIA Primary Care Unavailable CLOMARIELA, BALJEET O Admitting Unavailabl e CLOUGHERTY, BALJEET O Attending Unavailabl e IRAIS, DR CHAVARRIA Primary Care Unavailable YUMARVAS, DR CHAVARRIA Primary Care Unavailable [facility], SALINA Walker Attending Unavailable [facility], SALINA Walker Admitting Unavailable [facility], SALINA Walker Attending Unavailable SANBORNTON, DR ANAI Edmond Consulting Unavailable [facility], SALINA Walker Admitting Unavailable YUHAS, DR CHAVARRIA Primary Care Unavailable [facility], SALINA Walker Consulting Unavailable [facility], SALINA Walker Attending Unavailable [facility], SALINA Walker Admitting Unavailable YUHAS, DR CHAVARRIA Primary Care Unavailable ZIER, DR ARLEN Patel Consulting Unavailable [facility], SALINA Walker Consulting Unavailable [facility], SALINA Walker Attending Unavailable [facility] Admitting Unavailable YUHAS, DR CHAVARRIA Primary Care Unavailable [facility], SALINA Walker Attending Unavailable [facility] Admitting Unavailable YUHAS, DR CHAVARRIA Primary Care Unavailable [facility], SALINA Walker Attending Unavailable YUHAS, DR CHAVARRIA Primary Care Unavailable [facility], SALINA Walker Admitting Unavailable HIGHLANDER, SALINA Walker Attending Unavailable YUHAS, DR CHAVARRIA Primary Care Unavailable [facility], SALINA Walker Consulting Unavailable [facility], SALINA Walker Admitting Unavailable BALJEET LEONG Attending Unavailabl e CLOBALJEET SIERRA Admitting Unavailabl e YUDONNA, DR CHAVARRIA Primary Care Unavailable CLOBALJEET SIERRA Admitting Unavailabl e CLOUGHERTYBALJEET Attending Unavailabl e YUDONNA, DR CHAVARRIA Primary Care Unavailable CLOBALJEET SIERRA Admitting Unavailabl e CLOUGHERTYBALJEET O Attending Unavailabl e YUDONNA, DR CHAVARRIA Primary Care Unavailable IRAIS, DR CHAVARRIA Primary Care Unavailable [facility], SALINA Walker Attending Unavailable HIGHLANDERSALINA Admitting Unavailable CLOMARIELA, BALJEET O Admitting Unavailabl e CLOUGHERTY, BALJEET O Attending Unavailabl e YUDONNA, DR CHAVARRIA Primary Care Unavailable CLOBALJEET SIERRA O Admitting Unavailabl e CLOUGHERTY, BALJEET O Attending Unavailabl e WEST, DR ANAI [...] BALJEET O Consulting Unavailabl e CLOUGHERTY, BALJEET O [...] DR CHAVARRIA Primary Care Unavailable CLOMARIELA, BALJEET Payan Attending Unavailabl e CLOUGHERTY, BALJEET [...] Unavailable ZIEBER, DR ARLEN Patel Consulting Unavailable SALMOE, SANTOS Consulting Unavailable SALINA LEE Consulting Unavailable AGUBOSIM, MICHELA Consulting Unavailable JORDI VALENZUELA Consulting Unavailable SUZANNE, SHERINE Consulting Unavailable JUSTEN, [...] Unavailable CLOBALJEET SIERRA Attending Unavailabl e CLOUGHERTYBALJEET O Admitting Unavailabl e YUHAS, DR CHAVARRIA Primary Care Unavailable CLOBALJEET SIERRA O Attending Unavailabl e CLOUGH[place], BALJEET O Admitting Unavailabl e YUHAS, DR CHAVARRIA Primary Care Unavailable MD Ghanshyam Kaye Admit Provider MD Ghanshyam Kaye Attending Provider MD Bronwyn Alegre Other Provider ROHIT Palacios Emergency Provider DO César Cortes Emergency Provider [phone] Yumarvas, DO Deon Primary Care Provider DO Reddy Brandt Attending Provider [phone] Yuhas, DO Deon Primary Care Provider DO Reddy Brandt A Attending Provider DO César Cortes Emergency Provider DO Reddy Brandt Admit Provider Ghanshyam Kaye Unavailable Yuhas, DO Deon Primary Care Provider DO Reddy Brandt Attending Provider Dung Serna Unavailable YOVANNY CALHOUN Attending Unavailable YOVANNY CALHOUN Referring Unavailable YUHAS, DEON L Primary Care Unavailable Yuhas DODeon Primary Care Provider [phone] TERRY LOCK Attending Unavailable YUHAS, DEON L Referring Unavailable YUHAS, DEON L Primary Care Unavailable Yuhas, DO Deon Primary Care Provider [phone] ERIKA Lee Attending Provider Salina Lee Attending Unavailable Salina Lee Admitting Unavailable Irais, Deon Primary Care Unavailable Richards, Deon Primary Care Unavailable Dung Serna Attending Unavailable Dung Serna Admitting Unavailable ZOEY CORNELIUS Attending Unavailable DEBI DICKSON Attending Unavailable YOVANNY CALHOUN Attending Unavailable DEBI DICKSON Attending Unavailable ZOEY CORNELIUS Attending Unavailable YOVANNY CALHOUN Referring Unavailable YUHAS, DEON L Attending Unavailable YUHAS, DEON L Referring Unavailable YUHAS, DEON L Primary Care Unavailable YUHAS, DEON L Attending Unavailable YUHAS, DEON L Referring Unavailable YUHAS, DEON L Primary Care Unavailable YUHAS, DEON L Referring Unavailable YUHAS, DEON L Primary Care Unavailable YUHAS, DEON L Referring Unavailable YUHAS, DEON L Primary Care Unavailable Allergies Allergy Classification Reported Allergen(s) Allergy Type Date of Onset Reaction(s) Facility (20 sources) Chlorpheniramine; Translations: [chlorpheniramine] Drug Allergy 07-02-[address] [facility] Repository (15 sources) Dextromethorphan; Translations: [dextromethorphan] Drug Allergy 10-19-19 22 Unknown Reaction [facility] Repository (20 sources) Doxycycline; Translations: [doxycycline] Drug Allergy 04-02-19 21 FELT LIKE A HEART ATTACK, Chest Pain [facility] Repository (20 sources) guaiFENesin; Translations: [guaiFENesin] Drug Allergy 04-14-19 16 [facility] Repository (20 sources) levoFLOXacin; Translations: [levoFLOXacin] Drug Allergy 04-02-19 21 Chest Pain [facility] Repository (20 sources) Phenylephrine; Translations: [phenylephrine] Drug Allergy 07-02-19 21 Unknown Reaction [facility] Repository (1 source) Tussionex [employer]; Translations: [Tussionex [employer]] Propensity to adverse reactions to drug (disorder) [facility] Repository (20 sources) Tussin Drug allergy [facility] [employer] Other (20 sources) HYDROcodone; Translations: [HYDROCODONE] Drug Allergy 10-19-19 22 [facility] (6 sources) Chlorpheniramine / HYDROcodone; Translations: [TUSSIONEX] Drug Allergy [facility] Repository (11 sources) Dextromethorphan; Translations: [DEXTROMETHORPHAN HBR] Drug Allergy 10-18-19 23 Itching [facility] Repository (11 sources) DVISYFTVV-NJ-KJBQYR INOPHEN; Translations: [PSGHHHSTN-HK-ZAXSC MINOPHEN] Propensity to adverse reactions to drug (disorder) 02-04-20 [facility] Repository (7 sources) Chlorpheniramine / HYDROcodone Drug Allergy [facility] (1 source) carbetapentane Drug Allergy 12-06-19 23 [facility] Repository Medications Current Medications Medication Drug Class(es) Dates Sig (Normalized) Sig (Original) acetaminophen 500 mg oral tablet (14 sources) Start: 10-27-2021 take 500 mg by mouth every four hours Acetaminophen Active 500 MG PO Q4H 100 October 26, 2021 11:00pm take 1 capsule by mouth every si x hours Acetaminophen 500 MG 1 capsule as needed Orally every 6 hrs Active [id number] 200 actuat albuterol 0.09 mg/actuat metered dose [...] mL nebulizer Indications: COPD with acute exacerbation ([facility] USE 3 ML VIA NEBULIZER FOUR TIMES [...] tablet Indications: Chronic systolic congestive heart failure ([facility]) Take 1 tablet (10 mg total) by mouth in the morning. 90 tablet 1 10/26/2022 Active take 5 mg by mouth once daily FA RXIGA 5mg As directed P.O. Daily Active flash glucose sensor (FREESTYLE LELO 2 SENSOR) kit (7 sources) Start: 02-18-2023 flash glucose sensor (FREESTYLE LELO 2 SENSOR) kit Indications: Type 2 diabetes mellitus with diabetic neuropathic arthropathy, with long-term current use of insulin ([facility]) CHANGE EVERY 2 WEEKS DIRECTED 6 kit [...] arthropathy, with long-term current use of insulin ([facility]) Inject 15 Units under the skin in the morning and 15 Units at noon and 15 Units in the evening. Inject with meals. 30 mL 1 06/04/2023 Active Start: 03-22-2023 ADMELOG U-100 INSULIN LISPRO 100 unit/mL solution Indications: Type 2 diabetes mellitus with diabetic neuropathic arthropathy, with long-term current use of insulin ([facility]) Inject 15 Units under the skin in [...] tablet Indications: Chronic systolic congestive heart failure ([facility]) Take 1 tablet (25 mg total) by [...] 9:20am Start: 10-07-2020 take 1 puff(s) by [facility] once daily fluticasone furoate-vilanteroL (BREO ELLIPTA) 200-25 [...] Translations: [CHRONIC KIDNEY DISEASE STAGE 3B] Onset: 04-22-2020 Chronic obstructive pulmonary disease and bronchiectasis (9 sources) Chronic obstructive pulmonary disease, unspecified; Translations: [Chronic obstructive lung disease] Onset: 04-22-2020 04-22-2020 Chronic Chronic ulcer of skin (20 sources) Non-pressure 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 with fat layer exposed; Translations: [Pressure ulcer of right ankle, stage 1] Onset: 09-10-2019 Resolved: 10-29-2019 Chronic Complications of surgical procedures or medical care (20 sources) Other complications of procedures, not elsewhere classified, sequela; Translations: [Other complications of procedures, not elsewhere classified, subsequent encounter] Onset: 02-08-2021 Resolved: 12-14-2021 Episodic Conduction disorders (10 sources) Presence of automatic (implantable) cardiac defibrillator; Translations: [Cardiac defibrillator in situ] Onset: 09-06-2015 04-12-2023 Chronic Congestive heart failure; nonhypertensive (12 sources) Chronic systolic (congestive) heart failure; Translations: [Chronic systolic heart failure] Onset: 01-22-2020 04-12-2023 Chronic Coronary atherosclerosis and other heart disease (20 sources) Old myocardial infarction; Translations: [Atherosclerotic heart disease of lime coronary artery without angina pectoris] Onset: 11-23-2017 [...] kidney disease] Onset: 02-08-2021 Chronic Immunity disorders (9 sources) Sarcoidosis; Translations: [Sarcoidosis, unspecified] Onset: 12-21-2017 12-28-2021 Chronic Infective arthritis and osteomyelitis (except that caused by tuberculosis or sexually transmitted disease) (20 sources) Osteomyelitis; Translations: [Osteomyelitis, unspecified] Onset: 01-10-2019 Resolved: 07-13-2022 Chronic Mood disorders (1 source) Major depressive [...] sources) Long-term current use of insulin; Translations: [intermediate (current) use of insulin] Episodic Other and [...] musculoskeletal deformities (2 sources) Acquired absence of left foot; Translations: [Acquired absence of left foot] Onset: 08-02-2023 Chronic Other circulatory disease (1 source) Other [...] [Polyneuropathy, unspecified] Chronic Other nervous system disorders (2 sources) Polyneuropathy, unspecified; Translations: [Polyneuropathy, unspecified] Onset: 03-22-2023 Chronic Other non-traumatic joint disorders (5 sources) [...] METHICILLIN RSIST STAPH INF] Onset: 03-02-2021 Episodic Complication of device; implant or graft (1 source) Other specified complication of internal orthopedic prosthetic devices, implants and grafts, initial encounter; Translations: [OTH COMP INTRL ORTHO PROS DEVC INIT] Onset: 03-02-2021 Episodic Esophageal disorders (7 sources) Esophageal mass; 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] Onset: 05-19-2020 05-19-2020 Episodic Mood disorders (7 sources) Mood disorders Onset: 03-22-2023 03-22-2023 Mycoses (5 sources) Tinea unguium; Translations: [TINEA UNGUIUM] Onset: 05-03-2021 Episodic Open wounds of extremities (1 source) Unspecified open wound, right ankle, initial encounter; Translations: [UNS OPEN WOUND RIGHT ANKLE INITIAL] Onset: 01-18-2021 Episodic Other aftercare (1 source) intermediate (current) use of aspirin; Translations: [JAIL CURRENT USE OF ASPIRIN] Onset: 03-02-2021 Episodic Other aftercare (3 sources) assistant 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 manager (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) use of insulin; Translations: [JAIL CURRENT USE OF INSULIN] Onset: 04-22-2020 Episodic Other aftercare (1 source) Other oysterman (current) drug therapy; Translations: [OTH JAIL CURRENT DRUG THERAPY] Onset: 03-02-2021 Episodic Other [...] Onset: 03-10-2020 Resolved: 12-28-2021 12-28-2021 Episodic Other nutritional; endocrine; and metabolic disorders (2 sources) Hyperuricemia without signs of inflammatory arthritis and tophaceous disease; Translations: [Hyperuricemia without signs of inflammatory arthritis and tophaceous disease] Onset: 03-22-2023 Episodic Other skin disorders (1 source) Nail [...] Test Name Value Interpretation Reference Range Facility COMPREHENSIVE METABOLIC PANE Ray 08-02-2023 Albumin [Mass/Vol] 4.3 g/dL Normal 3.2-5.3 [facility] Comment on above: Performed By: #### [place], [address]-2, HA1C #### [facility] ([id number]) [address], [address] [place] [address] ALP [Catalytic activity/Vol] 85 U/L Normal 39-130 [facility] Comment on above: Performed By: #### Uzair COSBY, 00198-0, HA1C #### [facility] ([id number]) [address], [address] [place] [address] ALT [Catalytic activity/Vol] 31 U/L Normal 0-40 [facility] Comment on above: Performed By: #### Uzair COSBY, 45292-2, HA1C #### [facility] ([id number]) [address], [address] [place] [address] Anion gap [Moles/Vol] 8 mmol/L Normal 5-15 [facility] Comment on above: Performed By: #### Uzair COSBY, 10822-4, HA1C #### [facility] ([id number]) [address], [address] [place] [address] AST [Catalytic activity/Vol] 29 U/L Normal 0-41 [facility] Comment on above: Performed By: #### Uzair COSBY, 46660-9, HA1C #### [facility] ([id number]) [address], [address] [place] [address] Bilirubin [Mass/Vol] 0.9 mg/dL Normal 0.3-1.2 [facility] Comment on above: Performed By: #### Uzair COSBY, 14987-7, HA1C #### [facility] ([id number]) [address], [address] [place] [address] Calcium [Mass/Vol] 9.7 mg/dL Normal 8.5-10.5 [facility] Comment on above: Performed By: #### Uzair COSBY, 40625-6, HA1C #### [facility] ([id number]) [address], [address] [place] [address] Chloride [Moles/Vol] 103 mmol/L Normal 98-109 [facility] Comment on above: Performed By: #### C ALEA, 28369-1, HA1C #### [facility] ([id number]) [address], [address] [place] [address] CO2 [Moles/Vol] 31 mmol/L Normal 22-32 [facility] Comment on above: Performed By: #### C ALEA, 11855-6, HA1C #### [facility] ([id number]) [address], [address] [place] [address] Creatinine [Mass/Vol] 1.35 mg/dL High 0.60-1.30 [facility] Comment on above: Result Comment: METH OD TRACEABLE TO IDMS STANDARD Performed By: #### C ALEA, 41814-0, MARVA1C #### [facility] ([id number]) [address], [address] [place] [address] GFR/1.73 sq M.predicted among non-blacks MDRD (S/P/Bld) [Vol rate/Area] 58 mL/min/{1.73_m2} Low >59 [facility] Comment on above: Result Comment: Reported eGFR is based on the CKD-EPI 2020 equation that does not use a race coefficient. Performed By: #### C ALEA, 69038-4, MARVA1C #### [facility] ([id number]) [address], [address] [place] [address] Glucose [Mass/Vol] 135 mg/dL High 65-99 [facility] Comment on above: Performed By: #### C ALEA, 87279-3, HA1C #### [facility] ([id number]) [address], [address] [place] [address] Potassium [Moles/Vol] 4.3 mmol/L Normal 3.5-5.0 [facility] Comment on above: Performed By: #### C ALEA, 88294-0, HA1C #### [facility] ([id number]) [address], [address] [place] [address] Protein [Mass/Vol] 6.9 g/dL Normal 6.0-8.0 [facility] Comment on above: Performed By: #### Uzair COSBY, 89898-1, MARVA1C #### [facility] ([id number]) [address], [address] [place] [address] Sodium [Moles/Vol] 142 mmol/L Normal 134-146 [facility] Comment on above: Performed By: #### Uzair COSBY 62172-3, HA1C #### [facility] ([id number]) [address], [address] [place] [address] Urea nitrogen [Mass/Vol] 31 mg/dL High 5-27 [facility] Comment on above: Performed By: #### Uzair COSBY 72192-8, HA1C #### [facility] ([id number]) [address], [address] [place] [address] HGB A1C (GLYCO-HGB)on 2023 Glucose [Mass/Vol] 114 mg/dL Normal [facility] Comment on above: Performed By: #### Uzair COSBY, 25705-6, MARVA1C #### [facility] ([id number]) [address], [facility] [address] [place] [address] HbA1c (Bld) [Mass fraction] 5.6 % Normal 4.4-5.6 [facility] Comment on above: Result Comment: NOTE ADA Guidelines Result HgbA1c Normal : less than 5.7 % Prediabetes : 5.7 % to 6.4 % Diabetes : > 6.4 % Use with caution in patients with abnormal hemoglobin variants as the half-life of red blood cells and in vivo glycation rates are affected. Performed By: #### Uzair COSBY, 58568-7, HA1C #### [facility] ([id number]) [address], [address] [place] [address] Lipid 1996 panelon 4 Cholesterol [Mass/Vol] 88 mg/dL Low 150-200 [facility] Comment on above: Performed By: #### Uzair COSBY, 25334-1, ALANNAH #### [facility] ([id number]) [address], [address] [place] [address] Cholesterol in HDL [Mass/Vol] 38 mg/dL Low >39 [facility] Comment on above: Result Comment: HDL <40 mg/dL - High Risk HDL > or = 40mg/dL- Desirable HDL >60 mg/dL - Negative Risk Performed By: #### Uzair COSBY, 43658-6, HASanti #### [facility] ([id number]) [address], [address] [place] [address] Cholesterol in LDL [Mass/Vol] 33 mg/dL Normal <130 [facility] Comment on above: Result Comment: LDL <100 mg/dL - Desirable LDL >160 mg/dL - High Risk Performed By: #### Uzair COSBY, 60201-8, HA1C #### [facility] ([id number]) [address], [address] [place] [address] Cholesterol in VLDL [Mass/Vol] 17 mg/dL Normal 0-30 [facility] Comment on above: Performed By: #### Uzair COSBY, 69312-4, ALANNAH #### [facility] ([id number]) [address], [address] [place] [address] CHOLESTEROL:HDL 2.3 Normal 1.0-5.0 [facility] Comment on above: Performed By: #### C ALEA, 87336-8, HA1C #### [facility] ([id number]) [address], [address] [place] [address] Triglyceride [Mass/Vol] 83 mg/dL Normal 27-150 [facility] Comment on above: Performed By: #### C ALEA, 51665-9, HA1C #### [facility] ([id number]) [address], [address] [place] [address] MICROALBUMIN - ALBUMIN:CREAT ININE URINE RATIOon 08-02-2023 ALB/CREAT RATIO 400.0 mg/g creat High 0.0-30.0 [facility] Comment on above: Performed By: #### M ALBU #### [facility] ([id number]) [address], [address] [place] [address] Albumin DL <= 20 mg/L (U) [Mass/Vol] 29.5 mg/dL High 0.0-1.9 [facility] Comment on above: Performed By: #### M ALBU #### [facility] ([id number]) 0 [facility], [address] [place] [address] URINE CREAT 73.75 mg/dL Normal [facility] Comment on above: Performed By: #### M ALBU #### [facility] ([id number]) 0 [facility], [address] [place] [address] 15[address] Ray 04-19-2023 L Specimen: [id number] Received: 04/20/23 Status: SOUT Req Num: [id number] Spec Type: Surgical Subm Dr: Salina Lee DPM, MS Tissues: A Bone Fragments - Other than Path Fracture (LT LATERAL MALLEOLUS) Procedures: HE, Gross/Micro L3, Decalcification Age/ Patient Sex Location Account Attending Physician Anai Goodman 67/M LABELL [id number] Salina Lee DPM, MS SPEC NUM: [id number] RECD: 04/20/23 STATUS: SASHA PULIDOSandy NUM: [id number] KARIME: 04/19/23-[address]: Sailna Lee DPM, MS ENTERED: 04/20/[address] [facility] [address]: Gin Gimenez SPEC TYPE: Surgical DEPT: [...] in one cassette labeled A1. CPT Codes 07129, 98452 -------- -------- Specimen: [id number] Received: 04/20/23 Status: MINEKevin Matta Num: [id number] Spec Type: Surgical Subm Dr: Salina Lee DPM, MS Tissues: A Bone Fragments - Other than Path Fracture (LT LATERAL MALLEOLUS) Procedures: HARRISON, Gross/Micro L3, Decalcification -------- Patient: Anai Goodman [id number] (Continued) -------- Signed (signature on file) Aniket Krishnamurthy MD 04/23/232202 [facility] POCT EKGon 04-12-2023 [facility] MR ANKLE LT W WO CONTon MR ANKLE LT W WO CONT MR [...] Bennett MD on 04/05/2023 8:50 AM Normal [facility] CBC AND AUTO DIFFon 03-22-20 ABSOLUTE BASOPHIL 0.0 X10E9/L Normal 0.0-0.2 [facility] Comment on above: Performed By: #### C BCA, CMP, 98504-9, 3083- #### [facility] ([id number]) [address], [address] [place] [address] ABSOLUTE NEUTROPHIL 8.3 X10E9/L High 1.5-6.6 [facility] Comment on above: Performed By: #### C BCA, CMP, 55335-8, 3083- #### [facility] ([id number]) [address], [address] [place] [address] Basophils/100 WBC (Bld) 0.3 % Normal [facility] Comment on above: Performed By: #### C BCA, CMP, , 3083-04 #### [facility] ([id number]) [address], [address] [place] [address] Eosinophils (Bld) [#/Vol] 0.4 10*3/uL Normal 0.0-0.4 [facility] Comment on above: Performed By: #### C BCA, CMP, 90754-8, 3083-04 #### [facility] ([id number]) [address], [address] [place] [address] Eosinophils/100 WBC (Bld) 4.0 % Normal [facility] Comment on above: Performed By: #### C BCA, CMP, 80958-0, 3083-04 #### [facility] ([id number]) [address], [address] [place] [address] Erythrocyte distribution width (RBC) [Ratio] 14.5 % Normal 11.5-15.0 [facility] Comment on above: Performed By: #### C BCA, CMP, 20967-4, 3083- #### [facility] ([id number]) [address] [address] [place] [address] Hematocrit (Bld) [Volume fraction] 45.0 % Normal 39-49 [facility] Comment on above: Performed By: #### C BCA, CMP, 21160-5, 3083- #### [facility] ([id number]) [address] [address] [place] [address] Hemoglobin (Bld) [Mass/Vol] 15.2 g/dL Normal 13.0-17.0 [facility] Comment on above: Performed By: #### C BCA, CMP, 38614-1, 3083-04 #### [facility] ([id number]) [address] [address] [place] [address] Lymphocytes (Bld) [#/Vol] 0.8 10*3/uL Low 1.0-3.5 [facility] Comment on above: Performed By: #### C BCA, CMP, 60689-2, 3083-04 #### [facility] ([id number]) [address] [address] [place] [address] Lymphocytes/100 WBC (Bld) 8.1 % Normal [facility] Comment on above: Performed By: #### C BCA, CMP, 44222-8, 3083-04 #### [facility] ([id number]) [address], [address] [place] [address] MCH (RBC) [Entitic mass] 30.6 pg Normal 27-34 [facility] Comment on above: Performed By: #### C BCA, CMP, 08118-1, 3083- #### [facility] ([id number]) [address], [address] [place] [address] MCHC (RBC) [Mass/Vol] 33.7 g/dL Normal 32-36 [facility] Comment on above: Performed By: #### C BCA, CMP, 15066-2, 3083-04 #### [facility] ([id number]) [address], [address] [place] [address] MCV (RBC) [Entitic vol] 91 fL Normal 80-100 [facility] Comment on above: Performed By: #### C BCA, CMP, 10790-9, 3083-04 #### [facility] ([id number]) [address], [address] [place] [address] Monocytes (Bld) [#/Vol] 0.8 10*3/uL Normal 0-0.9 [facility] Comment on above: Performed By: #### C BCA, CMP, 42944-8, 3083-04 #### [facility] ([id number]) [address], [address] [place] [address] Monocytes/100 WBC (Bld) 7.5 % Normal [facility] Comment on above: Performed By: #### C BCA, CMP, , 3083-04 #### [facility] ([id number]) [address], [address] [place] [address] Neutrophils/100 WBC (Bld) 80.1 % Normal [facility] Comment on above: Performed By: #### Uzair BCA, CMP, 05918-5, 3083-04 #### [facility] ([id number]) [address], [address] [place] [address] Platelet mean volume (Bld) [Entitic vol] 9.0 fL Normal 7-12 [facility] Comment on above: Performed By: #### C BCA, CMP, 32733-1, 3083- #### [facility] ([id number]) [address], [address] [place] [address] Platelets (Bld) [#/Vol] 205 10*3/uL Normal 150-450 [facility] Comment on above: Performed By: #### C BCA, CMP, 79970-7, 308- #### [facility] ([id number]) [address], [address] [place] [address] RBC COUNT 4.95 X10E12/L Normal 4.10-5.70 [facility] Comment on above: Performed By: #### C BCA, CMP, 08904-8, 308- #### [facility] ([id number]) [address], [address] [place] [address] WBC (Bld) [#/Vol] 10.4 10*3/uL Normal 4.0-11.0 [facility] Comment on above: Performed By: #### C BCA, CMP, 60454-2, 3083- #### [facility] ([id number]) [address], [address] [place] [address] COMPREHENSIVE METABOLIC PANE [facility] 03-22-2023 Albumin [Mass/Vol] 4.3 g/dL Normal 3.2-5.3 [facility] Comment on above: Performed By: #### C BCA, CMP, 54391-0, 3083- #### [facility] ([id number]) [address], [address] [place] [address] ALP [Catalytic activity/Vol] 91 U/L Normal 39-130 [facility] Comment on above: Performed By: #### C BCA, CMP, 39896-1, 3083- #### [facility] ([id number]) [address], [address] [place] [address] ALT [Catalytic activity/Vol] 36 U/L Normal 0-40 [facility] Comment on above: Performed By: #### C BCA, CMP, 76806-9, 308-1 #### [facility] ([id number]) [address], [address] [place] [address] Anion gap [Moles/Vol] 7 mmol/L Normal 5-15 [facility] Comment on above: Performed By: #### C BCA, CMP, 26102-1, 3083- #### [facility] ([id number]) [address], [address] [place] [address] AST [Catalytic activity/Vol] 32 U/L Normal 0-41 [facility] Comment on above: Performed By: #### C BCA, CMP, 80127-5, 3083- #### [facility] ([id number]) [address], [address] [place] [address] Bilirubin [Mass/Vol] 0.8 mg/dL Normal 0.3-1.2 [facility] Comment on above: Performed By: #### C BCA, CMP, 22300-1, 3083- #### [facility] ([id number]) [address], [address] [place] [address] Calcium [Mass/Vol] 10.2 mg/dL Normal 8.5-10.5 [facility] Comment on above: Performed By: #### C BCA, CMP, 91066-1, 3083- #### [facility] ([id number]) [address], [address] [place] [address] Chloride [Moles/Vol] 96 mmol/L Low 98-109 [facility] Comment on above: Performed By: #### C BCA, CMP, 29517-9, 3083- #### [facility] ([id number]) [address], [address] [place] [address] CO2 [Moles/Vol] 33 mmol/L High 22-32 [facility] Comment on above: Performed By: #### C BCA, CMP, 42007-5, 3083- #### [facility] ([id number]) [address], [address] [place] [address] Creatinine [Mass/Vol] 1.61 mg/dL High 0.60-1.30 [facility] Comment on above: Result Comment: METH OD TRACEABLE TO IDMS STANDARD Performed By: #### C JAYDON, CMP, , 3083-04 #### [facility] ([id number]) [address], [address] [place] [address] GFR/1.73 sq M.predicted among non-blacks MDRD (S/P/Bld) [Vol rate/Area] 47 mL/min/{1.73_m2} Low >59 [facility] Comment on above: Result Comment: Reported eGFR is based on the CKD-EPI 2020 equation that does not use a race coefficient. Performed By: #### C JAYDON CMP, , 3083-04 #### [facility] ([id number]) [address], [address] [place] [address] Glucose [Mass/Vol] 77 mg/dL Normal 65-99 [facility] Comment on above: Performed By: #### C JAYDON, CMP, , 3083-04 #### [facility] ([id number]) [address] [address] [place] [address] Potassium [Moles/Vol] 4.4 mmol/L Normal 3.5-5.0 [facility] Comment on above: Performed By: #### C BCA, CMP, , 3083-04 #### [facility] ([id number]) [address] [address] [place] [address] Protein [Mass/Vol] 7.6 g/dL Normal 6.0-8.0 [facility] Comment on above: Performed By: #### C BCA, CMP, 15488-2, 3083-04 #### [facility] ([id number]) [address], [address] [place] [address] Sodium [Moles/Vol] 136 mmol/L Normal 134-146 [facility] Comment on above: Performed By: #### C BCA, CMP, 95694-2, 3083-04 #### [facility] ([id number]) [address], [address] [place] [address] Urea nitrogen [Mass/Vol] 37 mg/dL High 5-27 [facility] Comment on above: Performed By: #### C CARMINE INTERIANO, 38502-4, 3083- #### [facility] ([id number]) [address], [address] [place] [address] HGB A1C (GLYCO-HGB)on 2022 Glucose [Mass/Vol] 143 mg/dL Normal [facility] Comment on above: Performed By: #### C CARMINE INTERIANO, , 3083-04 #### [facility] ([id number]) [address], [address] [place] [address] HbA1c (Bld) [Mass fraction] 6.6 % High 4.4-5.6 [facility] Comment on above: Result Comment: NOTE ADA Guidelines Result HgbA1c Normal : less than 5.7 % Prediabetes : 5.7 % to 6.4 % Diabetes : > 6.4 % Use with caution in patients with abnormal hemoglobin variants as the half-life of red blood cells and in vivo glycation rates are affected. Performed By: #### C CARMINE INTERIANO, , 3083-04 #### [facility] ([id number]) [address], [address] [place] [address] Lipid 1996 panelon 3 Cholesterol [Mass/Vol] 85 mg/dL Low 150-200 [facility] Comment on above: Performed By: #### C CARMINE INTERIANO, , 3083-04 #### [facility] ([id number]) [address], [address] [place] [address] Cholesterol in HDL [Mass/Vol] 36 mg/dL Low >39 [facility] Comment on above: Result Comment: HDL <40 mg/dL - High Risk HDL > or = 40mg/dL- Desirable HDL >60 mg/dL - Negative Risk Performed By: #### C BCA, CMP, 15744-2, 3084-1 #### [facility] ([id number]) [address], [address] [place] [address] Cholesterol in LDL [Mass/Vol] 34 mg/dL Normal <130 [facility] Comment on above: Result Comment: LDL <100 mg/dL - Desirable LDL >160 mg/dL - High Risk Performed By: #### C BCA, CMP, 87281-2, 3083-1 #### [facility] ([id number]) [address], [address] [place] [address] Cholesterol in VLDL [Mass/Vol] 15 mg/dL Normal 0-30 [facility] Comment on above: Performed By: #### C BCA, CMP, 77551-5, 308-1 #### [facility] ([id number]) [address], [address] [place] [address] CHOLESTEROL:HDL 2.4 Normal 1.0-5.0 [facility] Comment on above: Performed By: #### C BCA, CMP, 41876-5, 3084-1 #### [facility] ([id number]) [address], [address] [place] [address] Triglyceride [Mass/Vol] 75 mg/dL Normal 27-150 [facility] Comment on above: Performed By: #### C BCA, CMP, 81161-6, 3084-1 #### [facility] ([id number]) [address] [place] [address] URIC ACIDon 03-22-2023 Urate [Mass/Vol] 8.0 mg/dL High 2.6-7.2 [facility] Comment on above: Performed By: #### C BCA, CMP, 94903-1, 3084-1 #### [facility] ([id number]) [address] [place] [address] XR cervical spine 2Von 10-05 XR cervical spine 2V [facility] [address] [place] [address] [place] [address] XRay Report Signed Patient: Anai Goodman MR#: [id number] : 1955 Acct:[id number] Age/Sex: 66 / M ADM Date: 10/05/22 Loc: XD Room: Type: [facility] Attending Dr: Dung eSrna MD Copies to: Dung Serna MD Ordering [...] Jose Sanabria M.D.10/05/2022 12:36 PM Dictation Location: [place] [address] Transcribed By: [facility] 10/05/22 1236 Dictated By: Jose Sanabria DO 10/05/22 1233 Signed By: 10/05/22 1236 Normal [facility] Basophils Auto (Bld) [#/Vol] Ordered By: Spenser Elaine on 11-29-2021 Basophils (Bld) [#/Vol] 0.0 10*3/uL 0.0-0.2 [facility] Basophils/100 WBC Auto (Bld) Ordered By: Spenser Elaine on 11-29-2021 Basophils/100 WBC (Bld) 0.5 % . F [facility] Blood hemoglobin measurement (mass/volume)Ordered By: Spenser Elaine on 11-29-2021 Hemoglobin (Bld) [Mass/Vol] 12.6 g/dL 13.0-17.0 [facility] Blood leukocytes automated c ount (number/volume)Ordered By: Spenser Elaine on 11-29-2021 WBC (Bld) [#/Vol] 6.8 10*3/uL 4.5-11.0 [facility] COVID CepheidOrdered By: Junior Cortes on 11-29-2021 SARS-CoV-2 (COVID-19) Ab IA Ql Negative Negative [facility] Comment on above: This is a duplicate [employer] Xpert Xpress CoV-2/Flu/RSV Plus RNA by RT-PCR result to be used for statistical tracking purpose only. SARS-CoV-2 (COVID-19) RNA MEREDITH+probe Ql (Unsp spec) [facility] Creatinine and Glomerular fi ltration rate.predicted panel (S/P/Bld)Ordered By: Spenser Elaine on 11-29-2021 Creatinine [Mass/Vol] 1.38 mg/dL 0.64-1.27 [facility] Eosinophils Auto (Bld) [#/Vo l]Ordered By: Spenser Elaine on 11-29-2021 Eosinophils (Bld) [#/Vol] 0.5 10*3/uL 0.0-0.45 [facility] Eosinophils/100 WBC Auto (Bl d)Ordered By: Spenser Elaine on 11-29-2021 Eosinophils/100 WBC (Bld) 7.5 % . [facility] Erythrocyte distribution wid th Auto (RBC) [Ratio]Ordered By: Spenser Elaine on 11-29-2021 Erythrocyte distribution width (RBC) [Ratio] 15.7 % 12.0-14.8 [facility] Estimated glomerular filtrat ion rate (GFR) non- AmericanOrdered By: Spenser Elaine on 11-29-2021 GFR/1.73 sq M.predicted among non-blacks MDRD (S/P/Bld) [Vol rate/Area] 52 mL/Min [facility] Glucose Glucometer (BldC) [M ass/Vol]Ordered By: Reddy Brandt on 11-29-2021 Glucose [Mass/Vol] 141 mg/dL [facility] Comment on above: Random Glucose Refer ence Range is dependent on time and content of last meal. Glucose of more than 200 mg/dL in a nonstressed, ambulatory subject supports the diagnosis of Diabetes Mellitus. Hematocrit Auto (Bld) [Volum e fraction]Ordered By: Spenser Elaine on 11-29-2021 Hematocrit (Bld) [Volume fraction] 38.3 % 38.8-50.0 [facility] - Hematology and Cell countsOrdered By: Spenser Elaine on 11-29-2021 Nucleated RBC/100 WBC (Bld) [Ratio] 0.0 % 0-0.5 [facility] - Microbiology an d Antimicrobial susceptibilityOrdered By: César Cortes on 11-29-2021 SARS-CoV-2 (COVID-19) RNA MEREDITH+probe Ql (Unsp spec) N/A [facility] Lymphocytes Auto (Bld) [#/Vo l]Ordered By: Spenser Elaine on 11-29-2021 Lymphocytes (Bld) [#/Vol] 0.6 10*3/uL 1.00-4.8 [facility] Lymphocytes/100 WBC Auto (Bl d)Ordered By: Spenser Elaine on 11-29-2021 Lymphocytes/100 WBC (Bld) 9.0 % . [facility] MCH Auto (RBC) [Entitic mass ]Ordered By: Spenser Elaine on 11-29-2021 MCH (RBC) [Entitic mass] 27.6 pg 27.5-35.2 [facility] MCHC Auto (RBC) [Mass/Vol]Or dered By: Spenser Elaine on 11-29-2021 MCHC (RBC) [Mass/Vol] 32.8 g/dL 32.5-35.6 [facility] MCV Auto (RBC) [Entitic vol] Ordered By: Spenser Elaine on 11-29-2021 MCV (RBC) [Entitic vol] 84.3 fL 83.5-101 F [facility] Monocytes Auto (Bld) [#/Vol] Ordered By: Spenser Elaine on 11-29-2021 Monocytes (Bld) [#/Vol] 0.7 10*3/uL 0.0-0.8 [facility] Monocytes/100 WBC Auto (Bld) Ordered By: Spenser Elaine on 11-29-2021 Monocytes/100 WBC (Bld) 10.9 % . F [facility] Neutrophils Auto (Bld) [#/Vo l]Ordered By: Spenser Elaine on 11-29-2021 Neutrophils (Bld) [#/Vol] 4.9 10*3/uL 1.8-7.7 [facility] Neutrophils/100 WBC Auto (Bl d)Ordered By: Spenser Elaine on 11-29-2021 Neutrophils/100 WBC (Bld) 72.1 % . [facility] No Panel InformationOrdered By: Reddy Brandt on 11-29-2021 Bedside Glucose Comment Glu2: cleaned meter [facility] No Panel InformationOrdered By: Spenser Elaine on 11-29-2021 Estimated GFR () > 60 mL/Min [facility] Comment on above: GFR estimated refere nce range: According to KDOQI guidelines, <60 ml/min/1.73m2 is sufficient to diagnose a patient with chronic kidney disease. Pharmacy Creatinine Clearance (Chem 66.84 [facility] Platelet mean volume Auto (B ld) [Entitic vol]Ordered By: Spenser Elaine on 11-29-2021 Platelet mean volume (Bld) [Entitic vol] 9.3 fL 6.6-10.1 [facility] Platelets Auto (Bld) [#/Vol] Ordered By: Spenser Elaine on 11-29-2021 Platelets (Bld) [#/Vol] 142 10*3/uL 150-450 [facility] RBC Auto (Bld) [#/Vol]Ordere d By: Spenser Elaine on 11-29-2021 RBC (Bld) [#/Vol] 4.54 10*6/uL 3.90-5.60 [facility] Serum or plasma anion gap de terminationOrdered By: Spenser Elaine on 11-29-2021 Anion gap [Moles/Vol] 12.0 mmol/L 6.0-15.0 [facility] Serum or plasma calcium sergei urement (mass/volume)Ordered By: Spenser Elaine on 11-29-2021 Calcium [Mass/Vol] 10.0 mg/dL 8.2-10.2 [facility] Serum or plasma chloride zofia surement (moles/volume)Ordered By: Spenser Elaine on 11-29-2021 Chloride [Moles/Vol] 100 mmol/L 95-114 [facility] Serum or plasma glucose sergei urement (mass/volume)Ordered By: Spenser Elaine on 11-29-2021 Glucose [Mass/Vol] 130 mg/dL 70-100 [facility] Comment on above: ADA recommended refe [...] on 11-29-2021 Potassium [Moles/Vol] 4.0 mmol/L 3.5-5.1 [facility] Serum or plasma sodium measu rement (moles/volume)Ordered By: pSenser Elaine on 11-29-2021 Sodium [Moles/Vol] 138 mmol/L 136-146 [facility] Serum or plasma total carbon dioxide measurement (moles/volume)Ordered By: Spenser Elaine on 11-29-2021 CO2 [Moles/Vol] 30.0 mmol/L 22.0-30.0 [facility] Serum or plasma urea nitroge n measurement (mass/volume)Ordered By: Spenser Elaine on 11-29-2021 Urea nitrogen [Mass/Vol] 22 mg/dL 9-23 [facility] Glucose Glucometer (BldC) [M ass/Vol]Ordered By: Reddy Brandt on 11-03-2021 Glucose [Mass/Vol] 174 mg/dL [facility] Comment on above: Random Glucose Refer ence Range is dependent on time and content of last meal. Glucose of more than 200 mg/dL in a nonstressed, ambulatory subject supports the diagnosis of Diabetes Mellitus. No Panel InformationOrdered By: Reddy Brandt on 11-03-2021 Bedside Glucose Comment Glu2: cleaned meter [facility] COVID-19 Positive/NegativeOr dered By: Reddy Brandt on 11-02-2021 SARS-CoV-2 (COVID-19) N gene MEREDITH+probe Ql (Resp) Negative Negative [facility] Comment on above: Testing for SARS-CoV -2 by RT-PCR This test was developed and its performance characteristics determined by [employer]) and validated at the [facility]. This test has not been FDA [...] developed and its performance characteristics determined by [employer] ([employer]) and validated at the [facility]. This test has not been FDA [...] Kaye on 10-27-2021 Glucose [Mass/Vol] 166 mg/dL [facility] Comment on above: Random Glucose Refer ence Range is dependent on time and content of last meal. Glucose of more than 200 mg/dL in a nonstressed, ambulatory subject supports the diagnosis of Diabetes Mellitus. No Panel InformationOrdered By: Ghanshyam Kaye on 10-27-2021 Bedside Glucose Comment Glu2: cleaned meter [facility] Basophils Auto (Bld) [#/Vol] Ordered By: Chante Narayan on 10-25-2021 Basophils (Bld) [#/Vol] 0.0 10*3/uL 0.0-0.2 [facility] Basophils/100 WBC Auto (Bld) Ordered By: Chante Narayan on 10-25-2021 Basophils/100 WBC (Bld) 0.3 % . F [facility] Blood hemoglobin measurement (mass/volume)Ordered By: Chante Narayan on 10-25-2021 Hemoglobin (Bld) [Mass/Vol] 11.2 g/dL 13.0-17.0 [facility] Blood leukocytes automated c ount (number/volume)Ordered By: Chante Narayan on 10-25-2021 WBC (Bld) [#/Vol] 5.7 10*3/uL 4.5-11.0 [facility] Creatinine and Glomerular fi ltration rate.predicted panel (S/P/Bld)Ordered By: Chante Narayan on 10-25-2021 Creatinine [Mass/Vol] 1.24 mg/dL 0.64-1.27 [facility] Eosinophils Auto (Bld) [#/Vo l]Ordered By: Chante Narayan on 10-25-2021 Eosinophils (Bld) [#/Vol] 0.4 10*3/uL 0.0-0.45 [facility] Eosinophils/100 WBC Auto (Bl d)Ordered By: Chante Narayan on 10-25-2021 Eosinophils/100 WBC (Bld) 6.7 % . [facility] Erythrocyte distribution wid th Auto (RBC) [Ratio]Ordered By: Chante Narayan on 10-25-2021 Erythrocyte distribution width (RBC) [Ratio] 17.6 % 12.0-14.8 [facility] Estimated glomerular filtrat ion rate (GFR) non- AmericanOrdered By: Chante Narayan on 10-25-2021 GFR/1.73 sq M.predicted among non-blacks MDRD (S/P/Bld) [Vol rate/Area] 59 mL/Min [facility] Hematocrit Auto (Bld) [Volum e fraction]Ordered By: Chante Narayan on 10-25-2021 Hematocrit (Bld) [Volume fraction] 33.0 % 38.8-50.0 [facility] - Hematology and Cell countsOrdered By: Chante Narayan on 10-25-2021 Nucleated RBC/100 WBC (Bld) [Ratio] 0.1 % 0-0.5 [facility] Lymphocytes Auto (Bld) [#/Vo l]Ordered By: Chante Narayan on 10-25-2021 Lymphocytes (Bld) [#/Vol] 0.5 10*3/uL 1.00-4.8 [facility] Lymphocytes/100 WBC Auto (Bl d)Ordered By: Chante Narayan on 10-25-2021 Lymphocytes/100 WBC (Bld) 9.4 % . [facility] MCH Auto (RBC) [Entitic mass ]Ordered By: Chante Narayan on 10-25-2021 MCH (RBC) [Entitic mass] 29.3 pg 27.5-35.2 [facility] MCHC Auto (RBC) [Mass/Vol]Or dered By: Chante Narayan on 10-25-2021 MCHC (RBC) [Mass/Vol] 33.8 g/dL 32.5-35.6 [facility] MCV Auto (RBC) [Entitic vol] Ordered By: Chante Narayan on 10-25-2021 MCV (RBC) [Entitic vol] 86.7 fL 83.5-101 F [facility] Monocytes Auto (Bld) [#/Vol] Ordered By: Chante Narayan on 10-25-2021 Monocytes (Bld) [#/Vol] 0.8 10*3/uL 0.0-0.8 [facility] Monocytes/100 WBC Auto (Bld) Ordered By: Chante Narayan on 10-25-2021 Monocytes/100 WBC (Bld) 14.5 % . [facility] Neutrophils Auto (Bld) [#/Vo l]Ordered By: Chante Narayan on 10-25-2021 Neutrophils (Bld) [#/Vol] 4.0 10*3/uL 1.8-7.7 [facility] Neutrophils/100 WBC Auto (Bl d)Ordered By: Chante Narayan on 10-25-2021 Neutrophils/100 WBC (Bld) 69.1 % . [facility] No Panel InformationOrdered By: Chante Narayan on 10-25-2021 Estimated GFR () > 60 mL/Min [facility] Comment on above: GFR estimated refere nce range: According to KDOQI guidelines, <60 ml/min/1.73m2 is sufficient to diagnose a patient with chronic kidney disease. Pharmacy Creatinine Clearance (Chem 60.35 [facility] Platelet mean volume Auto (B ld) [Entitic vol]Ordered By: Chante Narayan on 10-25-2021 Platelet mean volume (Bld) [Entitic vol] 8.6 fL 6.6-10.1 [facility] Platelets Auto (Bld) [#/Vol] Ordered By: Chante Narayan on 10-25-2021 Platelets (Bld) [#/Vol] 159 10*3/uL 150-450 [facility] RBC Auto (Bld) [#/Vol]Ordere d By: Chante Narayan on 10-25-2021 RBC (Bld) [#/Vol] 3.81 10*6/uL 3.90-5.60 [facility] Serum or plasma calcium sergei urement (mass/volume)Ordered By: Chante Narayan on 10-25-2021 Calcium [Mass/Vol] 9.1 mg/dL 8.2-10.2 [facility] Serum or plasma chloride zofia surement (moles/volume)Ordered By: Chante Narayan on 10-25-2021 Chloride [Moles/Vol] 102 mmol/L 95-114 [facility] Serum or plasma glucose sergei urement (mass/volume)Ordered By: Chante Narayan on 10-25-2021 Glucose [Mass/Vol] 176 mg/dL 70-100 [facility] Comment on above: ADA recommended refe rence range Random Glucose Reference Range is dependent on time and content of last meal. Glucose of more than 200 mg/dL in a nonstressed, ambulatory subject supports the diagnosis of Diabetes Mellitus. Serum or plasma potassium me asurement (moles/volume)Ordered By: Chante Narayan on 10-25-2021 Potassium [Moles/Vol] 3.6 mmol/L 3.5-5.1 [facility] Serum or plasma sodium measu rement (moles/volume)Ordered By: Chante Narayan on 10-25-2021 Sodium [Moles/Vol] 136 mmol/L 136-146 [facility] Serum or plasma total carbon dioxide measurement (moles/volume)Ordered By: Chante Narayan on 10-25-2021 CO2 [Moles/Vol] 25.8 mmol/L 22.0-30.0 [facility] Serum or plasma urea nitroge n measurement (mass/volume)Ordered By: Chante Narayan on 10-25-2021 Urea nitrogen [Mass/Vol] 32 mg/dL 12-23 [facility] Albumin [Mass/volume] in Ser um or PlasmaOrdered By: Chante Narayan on 10-22-2021 Albumin [Mass/Vol] 3.1 g/dL 3.2-5.5 [facility] Globulin Calc (S) [Mass/Vol] Ordered By: Chante Narayan on 10-22-2021 Globulin (S) [Mass/Vol] 3.0 g/dL [facility] Protein [Mass/volume] in Ser um or PlasmaOrdered By: Chante Narayan on 10-22-2021 Protein [Mass/Vol] 6.1 g/dL 6.1-7.9 [facility] Serum or plasma alanine dasilva otransferase measurement without P-5'-P (enzymatic activiOrdered By: Chante Narayan on 10-22-2021 ALT No additional P-5'-P [Catalytic activity/Vol] 21 U/L 10-60 [facility] Serum or plasma albumin/glob ulin mass ratioOrdered By: Chante Narayan on 10-22-2021 Albumin/Globulin [Mass ratio] 1.0 {ratio} [facility] Serum or plasma alkaline bob sphatase measurement (enzymatic activity/volume)Ordered By: Chante Narayan on 10-22-2021 ALP [Catalytic activity/Vol] 71 U/L 32-92 [facility] Serum or plasma aspartate am inotransferase measurement (enzymatic activity/volume)Ordered By: Chante Narayan on 10-22-2021 AST [Catalytic activity/Vol] 23 U/L 10-42 [facility] Serum or plasma prealbumin m easurement (mass/volume)Ordered By: Chante Narayan on 10-22-2021 Prealbumin [Mass/Vol] 19.4 mg/dL 18.0-38.0 [facility] Serum or plasma total biliru bin measurement (mass/volume)Ordered By: Chante Narayan on 10-22-2021 Bilirubin [Mass/Vol] 1.0 mg/dL 0.3-1.2 [facility] Bacteria identified Anaer cx Nom (Unsp spec)Ordered By: Reddy Brandt on 10-21-2021 Anaerobic microbial culture No Anaerobes Isolated 3 Days [facility] COVID-19 Positive/NegativeOr dered By: Reddy Brandt on 10-21-2021 SARS-CoV-2 (COVID-19) N gene MEREDITH+probe Ql (Resp) Negative Negative [facility] Comment on above: Testing for SARS-CoV -2 by RT-PCR This test was developed and its performance characteristics determined by [employer] ([employer]) and validated at the [facility]. This test has not been FDA [...] Brandt on 10-21-2021 Glucose [Mass/Vol] 298 mg/dL [facility] Comment on above: Random Glucose Refer ence Range is dependent on time and content of last meal. Glucose of more than 200 mg/dL in a nonstressed, ambulatory subject supports the diagnosis of Diabetes Mellitus. No Panel InformationOrdered By: Reddy Brandt on 10-21-2021 Bedside Glucose Comment Glu2: cleaned meter [facility] Bedside Glucose #2 Comment Cleaned meter [facility] ABO and Rh group post transf usion reaction Nom (Bld)Ordered By: Reddy Brandt on 10-19-2021 Microscopic observation Gram stain Nom (Unsp spec) [facility] COVID-19 Positive/NegativeOr dered By: Reddy Brandt on 10-14-2021 SARS-CoV-2 (COVID-19) N gene MEREDITH+probe Ql (Resp) Negative Negative [facility] Comment on above: Testing for SARS-CoV -2 by RT-PCR This test was developed and its performance characteristics determined by [employer] ([employer]) and validated at the [facility]. This test has not been FDA [...] 10-06-2021 Basophils (Bld) [#/Vol] 0.0 10*3/uL 0.0-0.2 [facility] Basophils/100 WBC Auto (Bld) Ordered By: Reddy Brandt on 10-06-2021 Basophils/100 WBC (Bld) 0.6 % . [facility] Blood hemoglobin measurement (mass/volume)Ordered By: Reddy Brandt on 10-06-2021 Hemoglobin (Bld) [Mass/Vol] 13.7 g/dL 13.0-17.0 [facility] Blood leukocytes automated c ount (number/volume)Ordered By: Reddy Brandt on 10-06-2021 WBC (Bld) [#/Vol] 7.8 10*3/uL 4.5-11.0 [facility] Creatinine and Glomerular fi ltration rate.predicted panel (S/P/Bld)Ordered By: Reddy Brandt on 10-06-2021 Creatinine [Mass/Vol] 1.76 mg/dL 0.64-1.27 [facility] Eosinophils Auto (Bld) [#/Vo l]Ordered By: Reddy Brandt on 10-06-2021 Eosinophils (Bld) [#/Vol] 0.4 10*3/uL 0.0-0.45 [facility] Eosinophils/100 WBC Auto (Bl d)Ordered By: Reddy Brandt on 10-06-2021 Eosinophils/100 WBC (Bld) 4.9 % . [facility] Erythrocyte distribution wid th Auto (RBC) [Ratio]Ordered By: Reddy Brandt on 10-06-2021 Erythrocyte distribution width (RBC) [Ratio] 18.8 % 12.0-14.8 [facility] Erythrocyte sedimentation ra te by Photometric methodOrdered By: Reddy Brandt on 10-06-2021 ESR Photometric method (Bld) [Velocity] 21 mm/hr 0-19 [facility] Estimated glomerular filtrat ion rate (GFR) non- AmericanOrdered By: Reddy Brandt on 10-06-2021 GFR/1.73 sq M.predicted among non-blacks MDRD (S/P/Bld) [Vol rate/Area] 39 mL/Min [facility] Glucose mean value [Mass/vol ume] in Blood Estimated from glycated hemoglobinOrdered By: Reddy Brandt on 10-06-2021 Average glucose Estimated from glycated hemoglobin (Bld) [Mass/Vol] 163 mg/dL [facility] Hematocrit Auto (Bld) [Volum e fraction]Ordered By: Reddy Brandt on 10-06-2021 Hematocrit (Bld) [Volume fraction] 41.1 % 38.8-50.0 [facility] Hemoglobin A1c percentageOrd ered By: Reddy Brandt on 10-06-2021 HbA1c (Bld) [Mass fraction] 7.3 % 4.3-5.6 [facility] Comment on above: Increased risk for d iabetes: 5.7 - 6.4 diabetes: >6.4 glycemic control for adults with diabetes: <7.0 Laboratory - Hematology and Cell countsOrdered By: Reddy Brandt on 10-06-2021 Nucleated RBC/100 WBC (Bld) [Ratio] 0.0 % 0-0.5 [facility] Lymphocytes Auto (Bld) [#/Vo l]Ordered By: Reddy Brandt on 10-06-2021 Lymphocytes (Bld) [#/Vol] 0.8 10*3/uL 1.00-4.8 [facility] Lymphocytes/100 WBC Auto (Bl d)Ordered By: Reddy Brandt on 10-06-2021 Lymphocytes/100 WBC (Bld) 10.9 % . [facility] MCH Auto (RBC) [Entitic mass ]Ordered By: Reddy Brandt on 10-06-2021 MCH (RBC) [Entitic mass] 28.8 pg 27.5-35.2 [facility] MCHC Auto (RBC) [Mass/Vol]Or dered By: Reddy Brandt on 10-06-2021 MCHC (RBC) [Mass/Vol] 33.3 g/dL 32.5-35.6 [facility] MCV Auto (RBC) [Entitic vol] Ordered By: Reddy Brandt on 10-06-2021 MCV (RBC) [Entitic vol] 86.3 fL 83.5-101 [facility] Monocytes Auto (Bld) [#/Vol] Ordered By: Reddy Brandt on 10-06-2021 Monocytes (Bld) [#/Vol] 0.9 10*3/uL 0.0-0.8 [facility] Monocytes/100 WBC Auto (Bld) Ordered By: Reddy Brandt on 10-06-2021 Monocytes/100 WBC (Bld) 11.8 % . [facility] Neutrophils Auto (Bld) [#/Vo l]Ordered By: Reddy Brandt on 10-06-2021 Neutrophils (Bld) [#/Vol] 5.6 10*3/uL 1.8-7.7 [facility] Neutrophils/100 WBC Auto (Bl d)Ordered By: Reddy Brandt on 10-06-2021 Neutrophils/100 WBC (Bld) 71.8 % . [facility] No Panel InformationOrdered By: Reddy Brandt on 10-06-2021 Estimated GFR () 48 mL/Min [facility] Comment on above: GFR estimated refere nce range: According to KDOQI guidelines, <60 ml/min/1.73m2 is sufficient to diagnose a patient with chronic kidney disease. Pharmacy Creatinine Clearance (Chem N/A [facility] Platelet mean volume Auto (B ld) [Entitic vol]Ordered By: Reddy Brandt on 10-06-2021 Platelet mean volume (Bld) [Entitic vol] 9.1 fL 6.6-10.1 [facility] Platelets Auto (Bld) [#/Vol] Ordered By: Reddy Brandt on 10-06-2021 Platelets (Bld) [#/Vol] 131 10*3/uL 150-450 [facility] RBC Auto (Bld) [#/Vol]Ordere d By: Reddy Brandt on 10-06-2021 RBC (Bld) [#/Vol] 4.77 10*6/uL 3.90-5.60 [facility] Serum or plasma C reactive p rotein measurement (mass/volume)Ordered By: Reddy Brandt on 10-06-2021 CRP [Mass/Vol] 0.5 mg/dL 0.0-1.0 [facility] Serum or plasma chloride zofia surement (moles/volume)Ordered By: Reddy Brandt on 10-06-2021 Chloride [Moles/Vol] 93 mmol/L 95-114 [facility] Serum or plasma potassium me asurement (moles/volume)Ordered By: Reddy Brandt on 10-06-2021 Potassium [Moles/Vol] 3.8 mmol/L 3.5-5.1 [facility] Serum or plasma sodium measu rement (moles/volume)Ordered By: Reddy Brandt on 10-06-2021 Sodium [Moles/Vol] 139 mmol/L 136-146 [facility] Serum or plasma total carbon dioxide measurement (moles/volume)Ordered By: Reddy Brandt on 10-06-2021 CO2 [Moles/Vol] 31.4 mmol/L 22.0-30.0 [facility] Serum or plasma urea nitroge n measurement (mass/volume)Ordered By: Reddy Brandt on 10-06-2021 Urea nitrogen [Mass/Vol] 52 mg/dL 9-23 [facility] WOUND CULTUREon 09-12-2021 Bacteria identified Aer cx Nom (Unsp spec) Final report Normal [facility] Comment on above: Performed By: #### C XWND ####[facility] [address] [place] [address]Dr. Anjali Reagan Result 1 Mixed skin areli Normal [facility] Comment on above: Performed By: #### C XWND ####[facility] [address] [place] [address]DrVeronica Reagan CBC AUTO DIFFon 09-09-2021 BASO # 0.0 103/ul Normal 0.0-0.1 [facility] Comment on above: Performed By: #### C BC ####[facility] [address] [place] [id number]. Anjali Reagan Basophils/100 WBC (Bld) 0.6 % Normal 0.2-2.0 [facility] Comment on above: Performed By: #### C BC ####[facility] [address] [place] [id number]. Anjali Reagan EO # 0.3 103/ul Normal 0.0-0.7 [facility] Comment on above: Performed By: #### C BC ####[facility] [address] [place] [address]Dr. Anjali Reagan Eosinophils/100 WBC (Bld) 4.1 % Normal 0.9-7.0 [facility] Comment on above: Performed By: #### C BC ####[facility] [address] [place], [place] [address]Dr. Anjali Reagan Erythrocyte distribution width (RBC) [Ratio] 16.1 % Critically high 11.0-15.0 [facility] Comment on above: Performed By: #### C BC ####[facility] [address] [place], [place] [id number]. Anjali Reagan Hematocrit (Bld) [Volume fraction] 38.3 % Critically low 42.0-54.0 [facility] Comment on above: Performed By: #### C BC ####[facility] [address] [place], [place] [address]Dr. Anjali Reagan Hemoglobin (Bld) [Mass/Vol] 12.0 g/dL Critically low 14.0-18.0 [facility] Comment on above: Performed By: #### C BC ####[facility] Qt[address] [place], [place] [address]Dr. Anjali Reagan IG # 0.04 10e3/ul Critically high 0.00-0.03 [facility] Comment on above: Performed By: #### C BC ####[facility] [address] [place], [place] [address]Dr. Anjali Reagan IG % 0.6 % Critically high 0.0-0.5 [facility] Comment on above: Performed By: #### C BC ####[facility] [address] [place] [id number]. Anjali Reagan LYMPH # 0.9 103/ul Critically low 1.2-3.8 [facility] Comment on above: Performed By: #### C BC ####[facility] [address] [place] [id number]. Anjali Reagan Lymphocytes/100 WBC (Bld) 12.6 % Critically low 20.5-60.0 [facility] Comment on above: Performed By: #### C BC ####[facility] [address] [place] [id number]. Anjali Reagan MANUAL DIFF REQ NO Normal [facility] Comment on above: Performed By: #### C BC ####[facility] [address] [place] [id number]. Anjali Reagan MCH (RBC) [Entitic mass] 27.5 pg Normal 25.9-34.0 [facility] Comment on above: Performed By: #### C BC ####[facility] [address] [place] [id number]. Anjali Reagan MCHC (RBC) [Mass/Vol] 31.3 g/dL Normal 29.9-35.2 [facility] Comment on above: Performed By: #### C BC ####[facility] [address] [place] [id number] Reagan MCV (RBC) [Entitic vol] 87.6 fL Normal 80.0-94.0 [facility] Comment on above: Performed By: #### C BC ####[facility] [address] [place] [id number] Reagan MONO # 0.7 103/ul Normal 0.3-0.8 [facility] Comment on above: Performed By: #### C BC ####[facility] [address] [place] [id number]. Anjali Reagan Monocytes/100 WBC (Bld) 10.3 % Normal 1.7-12.0 [facility] Comment on above: Performed By: #### C BC ####[facility] [address] [place] [id number]. Anjali Reagan NEUT # 5.1 103/ul Normal 1.4-6.5 [facility] Comment on above: Performed By: #### C BC ####[facility] [address] [place] [id number]. Anjali Reagan Neutrophils/100 WBC (Bld) 71.8 % Normal 43.0-75.0 [facility] Comment on above: Performed By: #### C BC ####[facility] [address] [place] [id number]. Anjali Reagan Platelet mean volume (Bld) [Entitic vol] 9.4 fL Critically low 9.5-13.5 [facility] Comment on above: Performed By: #### C BC ####[facility] [address] [place] [id number]. Anjali Reagan PLT 249 103/ul Normal 150-450 [facility] Comment on above: Performed By: #### C BC ####[facility] Dav[address]cvpow[address] [place] [id number]. Anjali Reagan RBC 4.37 106/ul Critically low 4.70-6.10 [facility] Comment on above: Performed By: #### C BC ####[facility] Cpvxioonom27[address] [place] [id number]. Anjali Reagan WBC 7.1 103/ul Normal 4.0-11.0 [facility] Comment on above: Performed By: #### C BC ####[facility] K[address] [place] [id number]. Anjali Reagan CRPon 09-09-2021 CRP 1.9 mg/dL Critically high <=1.0 [facility] Comment on above: Performed By: #### C RP, CMP ####[facility] [address] [place] [phone]. Anjali Reagan GRAM STAINon 09-09-2021 COMMENTS NO ORGANISMS OBSERVED Normal [facility] Comment on above: Performed By: #### G STAIN ####[facility] [address]ms[address] [place] [address]Dr. Anjali Reagan DIPHTHEROIDS Normal [facility] Comment on above: Performed By: #### G STAIN ####[facility] [address] [place] [address]Dr. Anjali Reagan EPITHELIALS Normal [facility] Comment on above: Performed By: #### G STAIN ####[facility] [address] [place] [address]Dr. Anjali Reagan FUNGAL ELEMENTS Normal [facility] Comment on above: Performed By: #### G STAIN ####[facility] [address] [place], [place] [address]Dr. Anjali Reagan GRAM NEG BACILLI Normal [facility] Comment on above: Performed By: #### G STAIN ####[facility] [address] [place], [place] [address]Dr. Anjali Reagan GRAM NEG DIPPLOCOCCI Normal [facility] Comment on above: Performed By: #### G STAIN ####[facility] [address] [place], [place] [address]Dr. Anjali Reagan GRAM POS BACILLI Normal [facility] Comment on above: Performed By: #### G STAIN ####[facility] [address]leptoxocz[address] [place] [address]Dr. Anjali Reagan GRAM POSITIVE COCCI Normal [facility] Comment on above: Performed By: #### G STAIN ####[facility] [address] [place] [address]Dr. Anjali Reagan GRAM STAIN SOURCE Left foot lateral Normal [facility] Comment on above: Performed By: #### G STAIN ####[facility] [address]wcwhv6[address] [place] [address]Dr. Anjali Reagan GS_DIPTH Normal [facility] Comment on above: Performed By: #### G STAIN ####[facility] [address] [place] [address]Dr. Anjali Reagan WBC RARE Normal [facility] Comment on above: Performed By: #### G STAIN ####[facility] Qogmz[address]zwnf[address] [place] [phone]. Anjali Reagan PROF 14(COMP METB)on 022 Albumin [Mass/Vol] 3.5 g/dL Normal 3.4-5.0 [facility] Comment on above: Performed By: #### C RP, CMP ####[facility] [address]ib[address] [place] [id number]. Anjali Reagan Albumin/Globulin [Mass ratio] 0.8 {ratio} Normal [facility] Comment on above: Performed By: #### C RP, CMP ####[facility] [address]cj[address] [place] [address]Dr. Anjali Reagan ALP [Catalytic activity/Vol] 136 U/L Critically high 46-116 [facility] Comment on above: Performed By: #### C RP, CMP ####[facility] X[address]wd[address] [place] [address]Dr. Anjali Reagan ALT [Catalytic activity/Vol] 34 U/L Normal 16-63 [facility] Comment on above: Performed By: #### C RP, CMP ####[facility] [address]hpwtj[address] [place] [address]Dr. Anjali Reagan Anion gap [Moles/Vol] 12.9 mmol/L Normal [facility] Comment on above: Performed By: #### C RP, CMP ####[facility] [address]ojw[address] [place] [address]Dr. Anjali Reagan AST [Catalytic activity/Vol] 27 U/L Normal 15-37 [facility] Comment on above: Performed By: #### C RP, CMP ####[facility] Q[address]ytaintja[address] [place] [address]Dr. Anjali Reagan Bilirubin [Mass/Vol] 0.4 mg/dL Normal 0.2-1.0 [facility] Comment on above: Performed By: #### C RP, CMP ####[facility] [address] [place] [address]Dr. Anjali Reagan Calcium [Mass/Vol] 9.7 mg/dL Normal 8.5-10.1 [facility] Comment on above: Performed By: #### C RP, CMP ####[facility] [address]lsr[address] [place] [address]Dr. Anjali Reagan Chloride [Moles/Vol] 103 mmol/L Normal 98-107 [facility] Comment on above: Performed By: #### C RP, CMP ####[facility] [address] [place], [place] [address]Dr. Anjali Reagan CO2 [Moles/Vol] 28.9 mmol/L Normal 21.0-32.0 [facility] Comment on above: Performed By: #### C RP, CMP ####[facility] Dade[address] [place], [place] [address]Dr. Anjali Reagan Creatinine [Mass/Vol] 1.57 mg/dL Critically high 0.70-1.30 [facility] Comment on above: Performed By: #### C RP, CMP ####[facility] Jwiz[address]nii[address] [place], [place] [address]Dr. Anjali Tez EGFR-AF SAMOAN 54 mL/min/1.73m2 Critically low >=60 [facility] Comment on above: Performed By: #### C RP, CMP ####[facility] To[address] [place], [place] [address]Dr. Anjali Reagan EGFR-NON AF SAMOAN 45 mL/min/1.73m2 Critically low >=60 [facility] Comment on above: Performed By: #### C RP, CMP ####[facility] [address]crnwok[address] [place], [place] [address]Dr. Anjali Reagan Globulin (S) [Mass/Vol] 4.5 g/dL Normal [facility] Comment on above: Performed By: #### C RP, CMP ####[facility] Xksbupwhqu[address] [place], [place] [address]Dr. Anjali Tez Glucose [Mass/Vol] 174 mg/dL Critically high 74-106 [facility] Comment on above: Performed By: #### C RP, CMP ####[facility] Ith[address]cex[address] [place], [place] [address]Dr. Anjali Reagan Potassium [Moles/Vol] 4.8 mmol/L Normal 3.5-5.1 [facility] Comment on above: Performed By: #### C RP, CMP ####[facility] [address]drz[address] [place] [address]Dr. Anjali Reagan Protein [Mass/Vol] 8.0 g/dL Normal 6.4-8.2 [facility] Comment on above: Performed By: #### C RP, CMP ####[facility] [address] [place], [place] [address]Dr. Anjali Reagan Sodium [Moles/Vol] 140 mmol/L Normal 136-145 [facility] Comment on above: Performed By: #### C RP, CMP ####[facility] [address] [place], [place] [address]Dr. Anjali Reagan Urea nitrogen [Mass/Vol] 34.0 mg/dL Critically high 7.0-18 .0 [facility] Comment on above: Performed By: #### C RP, CMP ####[facility] [address] [place], [place] [address]Dr. Anjali Reagan Urea nitrogen/Creatinine [Mass ratio] 21.7 mg/mg Normal [facility] Comment on above: Performed By: #### C RP, CMP ####[facility] Qvgfckaifo[address] [place], [place] [address]Dr. Anjali Reagan XR FOOT RT MIN 3 VIEWSon XR FOOT RT MIN [address] [facility] XR ANKLE RT MIN 3 VIEWSon XR ANKLE RT MIN 3 VIEWS Normal [facility] CULTURE BLOODon 08-26-2021 Microscopic examination of blood, culture Culture Observations: NO GROWTH AT 5 DAYS. Normal [facility] Comment on above: Performed By: #### B LDCX2 ####[facility] Tkzzeakoaq[address] [place], [place] [address]Dr. Anjali Reagan Microscopic examination of blood, culture Culture Observations: NO GROWTH AT 5 DAYS. Normal [facility] Comment on above: Performed By: #### B LDCX1 ####[facility] Aujgblajfo[address] [place], [place] [address]Dr. Anjali Reagan PREALBUMINon 08-26-2021 Prealbumin [Mass/Vol] 14 mg/dL Normal 10-36 [facility] Comment on above: Performed By: #### P REALBL ####[facility] Lfgpvgwsip523[address] [place], [place] [address]Dr. Anjali Reagan CBC W MANUAL DIFFon 08-25-19 ANISOCYTOSIS SLIGHT Normal [facility] Comment on above: Performed By: #### C BCFIONA ####[facility] Blfcgvlpwx1176 [place] [address]Dr. Anjali Reagan ATYPICAL LYMPH # Normal [facility] Comment on above: Performed By: #### C CORI ####[facility] Mlehyujwqg7[address] [place], [place] [address]Dr. Anjali Reagan ATYPICAL LYMPH % Normal [facility] Comment on above: Performed By: #### C CORI ####[facility] Zsjsvghmac414[address] [place], [place] [address]Dr. Anjali Reagan BAND # Normal 0.0-0.3 [facility] Comment on above: Performed By: #### C CORI ####[facility] Ugdurfcexr585[address] [place], [place] [address]Dr. Anjali Reagan BAND % Normal 0-5 [facility] Comment on above: Performed By: #### C CORI ####[facility] Ospyrndybi[address] [place], [place] [address]Dr. Anjali Reagan BASOM # 0.00 103/ul Normal 0.00-0.10 [facility] Comment on above: Performed By: #### C CORI ####[facility] Elzldonoyb[address] [place], [place] [address]Dr. Anjali Reagan BASOM % 0.0 % Critically low 0.2-2.0 [facility] Comment on above: Performed By: #### C CORI ####[facility] Vyxlvfmtpi0085 [place] [address]Dr. Anjali Reagan BLAST # Normal [facility] Comment on above: Performed By: #### C CORI ####[facility] Eonckjgnyc[address] [place], [place] [address]Dr. Anjali Reagan BLAST % Normal [facility] Comment on above: Performed By: #### C CORI ####[facility] Wbzwiknigr9691 [place] [id number]. Anjali Reagan CORRECTED WBC Normal 4.0-11.0 [facility] Comment on above: Performed By: #### C BCFIONA ####[facility] Zxdncyfqoq6710 [place] [address]Dr. Anjali Reagan EOS # 0.34 103/ul Normal 0.00-0.70 [facility] Comment on above: Performed By: #### C CORI ####[facility] Lynhsdoucc2431 [place] [address]Dr. Anjali Reagan EOS% 3.0 % Normal 0.9-7.0 [facility] Comment on above: Performed By: #### C CORI ####[facility] Anwqebqtyp0444 [place] [address]Dr. Anjali Reagan HCT 36.2 % Critically low 42.0-54.0 [facility] Comment on above: Performed By: #### C CORI ####[facility] Qjxynfzbid5032 [place] [address]Dr. Anjali Reagan HGB 11.8 g/dl Critically low 14.0-18.0 [facility] Comment on above: Performed By: #### C CORI ####[facility] Jzvxlkqbnq8216 [place] [address]Dr. Anjali Reagan LYMPHM # 1.03 103/ul Critically low 1.20-3.80 [facility] Comment on above: Performed By: #### C CORI ####[facility] Rewgxdaabj3680 [place] [address]Dr. Anjali Reagan LYMPHM% 9.0 % Critically low 20.5-60.0 [facility] Comment on above: Performed By: #### C CORI ####[facility] Qqynvfiiov2006 [place] [address]Dr. Anjali Reagan MCH 28.0 pg Normal 25.9-34.0 [facility] Comment on above: Performed By: #### C CORI ####[facility] Zlqobvuhrz0551 [place] [address]Dr. Anjali Reagan MCHC 32.6 g/dl Normal 29.9-35.2 [facility] Comment on above: Performed By: #### C CORI ####[facility] Jzkioiusnm8224 [place] [address]Dr. Anjali Reagan MCV 85.8 fL Normal 80.0-94.0 [facility] Comment on above: Performed By: #### C CORI ####[facility] Okymeitbwh0806 [place] [address]Dr. Anjali Reagan METAMYELOCYTE # Normal [facility] Comment on above: Performed By: #### C CORI ####[facility] Anchsnpdzm9367 [place] [address]Dr. Anjali Reagan METAMYELOCYTE % Normal [facility] Comment on above: Performed By: #### Uzair PERSAUD ####[facility] Dnaenavzqu9668 [place] [address]Dr. Anjali Reagan MONOM# 1.61 103/ul Critically high 0.30-0.80 [facility] Comment on above: Performed By: #### C CORI ####[facility] Ebrpcysyfn9231 [place] [address]Dr. Anjali Reagan MONOM% 14.0 % Critically high 1.7-12.0 [facility] Comment on above: Performed By: #### C CORI ####[facility] Okixkqaqze3757 [place] [address]Dr. Anjali Reagan MPV 8.9 fL Critically low 9.5-13.5 [facility] Comment on above: Performed By: #### C CORI ####[facility] Pqxdppynnz2619 [place] [address]Dr. Anjali Reagan MYELOCYTE # Normal [facility] Comment on above: Performed By: #### C CORI ####[facility] Usosmozois4987 [place] [address]Dr. Anjali Reagan MYELOCYTE % Normal [facility] Comment on above: Performed By: #### C CORI ####[facility] Jlehchwqko5849 [place], [place] [address]Ls. Anjali Reagan NRBC Normal [facility] Comment on above: Performed By: #### C CORI ####[facility] Cbpnuvgjjw5935 [place], [place] [address]Pv. Anjali Reagan PLT 263 103/ul Normal 150-450 [facility] Comment on above: Performed By: #### C CORI ####[facility] Ojggbibide1941 [place], [place] [address]Ys. Anjali Reagan RBC 4.22 106/ul Critically low 4.70-6.10 [facility] Comment on above: Performed By: #### C CORI ####[facility] Aqowsmwgcm1674 [place], [place] [address]Yw. Anjali Reagan RDW 16.0 % Critically high 11.0-15.0 [facility] Comment on above: Performed By: #### C CORI ####[facility] Xplxmgkmce6118 [place], [place] [address]Iv. Anjali Reagan SEG # 8.51 103/ul Critically high 1.40-6.50 [facility] Comment on above: Performed By: #### C CORI ####[facility] Ibgkaecbyq3192 [place], [place] [address]Pu. Anjali Reagan SEG % 74.0 % Normal 43.0-75.0 [facility] Comment on above: Performed By: #### C CORI ####[facility] Npiaeqvydz7618 [place], [place] [address]Rc. Anjali Reagan WBC 11.5 103/ul Critically high 4.0-11.0 [facility] Comment on above: Performed By: #### C CORI ####[facility] Qtrbmofrou5477 [place] [address]Dr. Anjali Reagan CRPon 08-24-2021 CRP 11.6 mg/dL Critically high <=1.0 [facility] Comment on above: Performed By: #### C RP, CMP ####[facility] Tgmhcujfqh5093 [place] [address]Dr. Anjali Reagan PROF 14(COMP METB)on 022 Albumin [Mass/Vol] 3.2 g/dL Critically low 3.4-5.[address] [facility] Comment on above: Performed By: #### C RP, CMP ####[facility] Hyyqfgflxg0788 [place] [address]Dr. Anjali Reagan Albumin/Globulin [Mass ratio] 0.7 {ratio} Normal [facility] Comment on above: Performed By: #### C RP, CMP ####[facility] Xfwelkogfc9975 [place] [address]Dr. Anjali Reagan ALP [Catalytic activity/Vol] 107 U/L Normal 46-116 [facility] Comment on above: Performed By: #### C RP, CMP ####[facility] Okypmtpkvk8389 [place] [address]Dr. Anjali Reagan ALT [Catalytic activity/Vol] 57 U/L Normal 16-63 [facility] Comment on above: Performed By: #### C RP, CMP ####[facility] Yrozotpmzt4680 [place] [address]Dr. Anjali Reagan Anion gap [Moles/Vol] 13.7 mmol/L Normal [facility] Comment on above: Performed By: #### C RP, CMP ####[facility] Qltoxndcza2583 [place] [address]Dr. Anjali Reagan AST [Catalytic activity/Vol] 40 U/L Critically high 15-37 [facility] Comment on above: Performed By: #### C RP, CMP ####[facility] Zxgiqnbvph6342 [place] [address]Dr. Anjali Reagan Bilirubin [Mass/Vol] 0.6 mg/dL Normal 0.2-1.0 [facility] Comment on above: Performed By: #### C RP, CMP ####[facility] Ahmyrivoox9664 [place] [address]Dr. Anjali Reagan Calcium [Mass/Vol] 9.7 mg/dL Normal 8.5-10.1 [facility] Comment on above: Performed By: #### C RP, CMP ####[facility] Mmngssgqvx8536 [place] [address]Dr. Anjali Reagan Chloride [Moles/Vol] 98 mmol/L Normal 98-107 [facility] Comment on above: Performed By: #### C RP, CMP ####[facility] Cjtuiyldnm[address] [place], [place] [address]Dr. Anjali Reagan CO2 [Moles/Vol] 30.0 mmol/L Normal 21.0-32.0 [facility] Comment on above: Performed By: #### C RP, CMP ####[facility] Uxskmhuwox[address] [place], [place] [address]Dr. Anjali Reagan Creatinine [Mass/Vol] 1.73 mg/dL Critically high 0.70-1.30 [facility] Comment on above: Performed By: #### C RP, CMP ####[facility] Ajgfwmgzdi69750[address] [place], [place] [address]Dr. Anjali Reagan EGFR-AF SAMOAN 49 mL/min/1.73m2 Critically low >=60 [facility] Comment on above: Performed By: #### C RP, CMP ####[facility] Bonoazikqf167[address] [place], [place] [address]Dr. Anjali Reagan EGFR-NON AF SAMOAN 40 mL/min/1.73m2 Critically low >=60 [facility] Comment on above: Performed By: #### C RP, CMP ####[facility] Ifldzdgfrc013[address] [place], [place] [address]Dr. Anjali Reagan Globulin (S) [Mass/Vol] 4.7 g/dL Normal [facility] Comment on above: Performed By: #### C RP, CMP ####[facility] Pfabhypnuo3527[address] [place], [place] [address]Dr. Anjali Reagan Glucose [Mass/Vol] 92 mg/dL Normal 74-106 [facility] Comment on above: Performed By: #### C RP, CMP ####[facility] Ihcewgbbbx066[address] [place], [place] [address]Dr. Anjali Reagan Potassium [Moles/Vol] 3.7 mmol/L Normal 3.5-5.1 [facility] Comment on above: Performed By: #### C RP, CMP ####[facility] Lmizllecaw[address] [place], [place] [address]Dr. Anjali Reagan Protein [Mass/Vol] 7.9 g/dL Normal 6.4-8.2 [facility] Comment on above: Performed By: #### C RP, CMP ####[facility] Njgvvlqbwi[address] [place], [place] [address]Dr. Anjali Reagan Sodium [Moles/Vol] 138 mmol/L Normal 136-145 [facility] Comment on above: Performed By: #### C RP, CMP ####[facility] Gvzrnpsmha[address] [place], [place] [address]Dr. Anjali Reagan Urea nitrogen [Mass/Vol] 50.0 mg/dL Critically high 7.0-18 .0 [facility] Comment on above: Performed By: #### C RP, CMP ####[facility] Mxrtdvxmwq64[address] [place], [place] [address]Dr. Anjali Reagan Urea nitrogen/Creatinine [Mass ratio] 28.9 mg/mg Normal [facility] Comment on above: Performed By: #### C RP, CMP ####[facility] Bapknnlnib[address] [place], [place] [address]Dr. Anjali Reagan SED RATE [facility] 2021 SED RATE 17 mm/hr Normal <=20 [facility] Comment on above: Performed By: #### S EDR ####[facility] Oznqkqkhqk[address] [place], [place] [address]Dr. Anjali Reagan CBC (INCLUDES DIFF/PLT)on Basophils (Bld) [#/Vol] 0.034 10*3/uL Normal 0-200 [facility] Comment on above: Performed By: #### 6 399, 496, 718, 41479 #### [facility] [address] [place] [address], [address] [place] [address] [employer]: Juan Meraz MD Basophils/100 WBC (Bld) 0.3 % Normal [facility] Comment on above: Performed By: #### 6 399, 496, 718, 09544 #### [facility] of [place] [address] [employer]: Juan Meraz MD Eosinophils (Bld) [#/Vol] 0.023 10*3/uL Normal 15-500 [facility] Comment on above: Performed By: #### 6 399, 496, 718, 87634 #### [facility] of [place] [address] [employer]: Juan Meraz MD Eosinophils/100 WBC (Bld) 0.2 % Normal [facility] Comment on above: Performed By: #### 6 399, 496, 718, 34293 #### [facility] of [place] [address] [employer]: Juan Meraz MD Erythrocyte distribution width (RBC) [Ratio] 15.6 % High 11.0-15.0 [facility] Comment on above: Performed By: #### 6 399, 496, 718, 62110 #### [facility] of [place] [address] [employer]: Juan Meraz MD Hematocrit (Bld) [Volume fraction] 38.9 % Normal 38.5-50.0 [facility] Comment on above: Performed By: #### 6 399, 496, 718, 33337 #### [facility] of [place] [address] [employer]: Juna Meraz MD Hemoglobin (Bld) [Mass/Vol] 12.7 g/dL Low 13.2-17.1 [facility] Comment on above: Performed By: #### 6 399, 496, 718, 06902 #### [facility] of [place] [address] [employer]: Juan Meraz MD Lymphocytes (Bld) [#/Vol] 0.531 10*3/uL Low 850-3900 [facility] Comment on above: Performed By: #### 6 399, 496, 718, 94820 #### [facility] [place] [address] [employer]: Juan Meraz MD Lymphocytes/100 WBC (Bld) 4.7 % Normal [facility] Comment on above: Performed By: #### 6 399, 496, 718, 06137 #### [facility] of [place] [address] [employer]: Juan Meraz MD MCH (RBC) [Entitic mass] 28.2 pg Normal 27.0-33.0 [facility] Comment on above: Performed By: #### 6 399, 496, 718, 16473 #### [facility] of [place] [address] [employer]: Juan Meraz MD MCHC (RBC) [Mass/Vol] 32.6 g/dL Normal 32.0-36.[address] [facility] Comment on above: Performed By: #### 6 399, 496, 718, 49632 #### [facility] [place] [address] [employer]: Juan Meraz MD MCV (RBC) [Entitic vol] 86.4 fL Normal 80.0-100.0 [facility] Comment on above: Performed By: #### 6 399, 496, 718, 12758 #### [facility] [place] [address] [employer]: Juan Meraz MD Monocytes (Bld) [#/Vol] 1.119 10*3/uL High 200-950 [facility] Comment on above: Performed By: #### 6 399, 496, 718, 71604 #### [facility] [place] [address] [employer]: Juan Meraz MD Monocytes/100 WBC (Bld) 9.9 % Normal [facility] Comment on above: Performed By: #### 6 399, 496, 718, 60973 #### [facility] of [address], [address] [place] [address] [employer]: Juan Meraz MD Neutrophils (Bld) [#/Vol] 9.594 10*3/uL High 2241-7689 [facility] Comment on above: Performed By: #### 6 399, 496, 718, 51657 #### [facility] of [address], [address] [place] [address] [employer]: Juan Meraz MD Neutrophils/100 WBC (Bld) 84.9 % Normal [facility] Comment on above: Performed By: #### 6 399, 496, 718, 60899 #### [facility] [place] [address] [employer]: Juan Meraz MD Platelet mean volume (Bld) [Entitic vol] 10.1 fL Normal 7.5-12.5 [facility] Comment on above: Performed By: #### 6 399, 496, 718, 42467 #### [facility] of [place] [address] [employer]: Juan Meraz MD Platelets (Bld) [#/Vol] 267 10*3/uL Normal 140-400 [facility] Comment on above: Performed By: #### 6 399, 496, 718, 20173 #### [facility] of [place] [address] [employer]: Juan Meraz MD RBC (Bld) [#/Vol] 4.50 10*6/uL Normal 4.20-5.80 [facility] Comment on above: Performed By: #### 6 399, 496, 718, 58507 #### [facility] of [place] [address] [employer]: Juan Meraz MD WBC (Bld) [#/Vol] 11.3 10*3/uL High 3.8-10.8 [facility] Comment on above: Performed By: #### 6 399, 496, 718, 19252 #### [facility] [place] [address] [employer]: Juan Meraz MD HEMOGLOBIN A1con 08-23-2021 HEMOGLOBIN [...] Performed By: #### 6 399, 496, 718, 49507 #### [facility] [place] [address] [employer]: Juan Meraz MD PHOSPHATE ( PHOSPHORUS)on 08-23-2021 Phosphate [Mass/Vol] 3.7 mg/dL Normal 2.5-4.5 [facility] Comment on above: Order Comment: PATIE NT UNABLE TO VOID; ADVISED TO RETURN FOR COLLECTION. Performed By: #### 6 399, 496, 718, 69564 #### [facility] [place] [address] [employer]: Juan Meraz MD PTH, INTACT WITHOUT CALCIUMo n 08-23-2021 PARATHYROID HORMONE, INTACT 6 pg/mL Low 16- [facility] Comment on above: Result Comment: Interpretive Guide Intact PTH Calcium ------- Normal Parathyroid Normal Normal Hypoparathyroidism Low or Low Normal Low Hyperparathyroidism Primary Normal or High High Secondary High Normal or Low Tertiary High High Non-Parathyroid Hypercalcemia Low or Low Normal High Performed By: #### 6 399, 496, 718, 52879 #### [facility] [address] [place] [address] [employer]: Juan Meraz MD VITAMIN D,25-OH,TOTAL,IAon 0 08-23-2021 [...] D, (D2,D3), LC/MS/MS is recommended: order code 17086 (patients >2yrs). See Note 1 Note 1 For additional information, please refer to http://education.[employer]/faq/ZBK283 (This link is being provided for informational/ educational purposes only.) Performed By: #### 6 399, 496, 718, 18322 #### [facility] [address], [address] [place] [address] [employer]: Juan Meraz MD CBC W MANUAL DIFFon 07-06-19 22 ATYPICAL LYMPH # Normal [facility] Comment on above: Performed By: #### Uzair PERSAUD ####[facility] Qjrpguzwdf0861 [place] [address]Dr. Biancaramona Reagan ATYPICAL LYMPH % Normal [facility] Comment on above: Performed By: #### Uzair PERSAUD ####[facility] Yezhvnqfpm0023 [place] [address]Dr. Yilan Reagan BAND # 0.1 103/ul Normal 0.0-0.3 [facility] Comment on above: Performed By: #### Uzair PERSAUD ####[facility] Hwnsvcvjcl6440 [place] [address]Dr. Biancalan Reagan BAND % 1 % Normal 0-5 [facility] Comment on above: Performed By: #### Uzair PERSAUD ####[facility] Hczgkalwdw6753 [place] [address]Dr. Biancalan Reagan BASOM # 0.00 103/ul Normal 0.00-0.10 [facility] Comment on above: Performed By: #### C BCFIONA ####[facility] Pwwkjuvpnw0030 [place] [address]Dr. Anjali Reagan BASOM % 0.0 % Critically low 0.2-2.0 [facility] Comment on above: Performed By: #### C BCFIONA ####[facility] Cmunexdbgy4484 [place] [address]Dr. Anjali Reagan BLAST # Normal [facility] Comment on above: Performed By: #### C BCFIONA ####[facility] Mdbcajjtxn4992 [place] [address]Dr. Anjali Reagan BLAST % Normal [facility] Comment on above: Performed By: #### C BCFIONA ####[facility] Wfxwkhwsfs166[address] [place], [place] [address]Dr. Anjali Reagan CORRECTED WBC Normal 4.0-11.0 [facility] Comment on above: Performed By: #### C BCFIONA ####[facility] Hjdowgpucx814[address] [place], [place] [address]Dr. Anjali Reagan EOS # 0.16 103/ul Normal 0.00-0.70 [facility] Comment on above: Performed By: #### C BCFIONA ####[facility] Ikswsgqlau376[address] [place], [place] [address]Dr. Anjali Reagan EOS% 2.0 % Normal 0.9-7.0 [facility] Comment on above: Performed By: #### C BCFIONA ####[facility] Uabavdrvxj374[address] [place], [place] [address]Dr. Anjali Reagan HCT 35.3 % Critically low 42.0-54.0 [facility] Comment on above: Performed By: #### C BCMAN ####[facility] Zhdcszetsq156[address] [place], [place] [address]Dr. Anjali Reagan HGB 11.4 g/dl Critically low 14.0-18.0 [facility] Comment on above: Performed By: #### C BCFIONA ####[facility] C[address] [place] [address]Hy. Anjali Reagan LYMPHM # 0.70 103/ul Critically low 1.20-3.80 [facility] Comment on above: Performed By: #### C CORI ####[facility] Krwzwpkhry4637 [place] [address]Dr. Anjali Reagan LYMPHM% 9.0 % Critically low 20.5-60.0 [facility] Comment on above: Performed By: #### C CORI ####[facility] Jvbcxliwql2340 [place] [address]Dr. Anjali Reagan MCH 27.5 pg Normal 25.9-34.0 [facility] Comment on above: Performed By: #### C CORI ####[facility] Teisylogep613[address] [place], [place] [address]Dr. Anjali Reagan MCHC 32.3 g/dl Normal 29.9-35.2 [facility] Comment on above: Performed By: #### C CORI ####[facility] Lmsqgvdnvx105[address] [place], [place] [address]Dr. Anjali Reagan MCV 85.3 fL Normal 80.0-94.0 [facility] Comment on above: Performed By: #### C CORI ####[facility] Kmmkjkfuuv[address] [place], [place] [address]Dr. Anjali Reagan METAMYELOCYTE # Normal [facility] Comment on above: Performed By: #### C CORI ####[facility] Wslrsveltq6005 [place] [id number]. Anjali Reagan METAMYELOCYTE % Normal [facility] [facility] Comment on above: Performed By: #### C CORI ####[facility] Nqdarvksid6217 [place] [id number]. Anjali Reagan MONOM# 1.09 103/ul Critically high 0.30-0.80 [facility] Comment on above: Performed By: #### C CORI ####[facility] Hbppikhjdn1559 [place] [id number]. Anjali Reagan MONOM% 14.0 % Critically high 1.7-12.0 [facility] Comment on above: Performed By: #### C CORI ####[facility] Upwwyjlrpi7030 [place], [place] [address]Cg. Anjali Reagan MPV 9.6 fL Normal 9.5-13.5 [facility] Comment on above: Performed By: #### C CORI ####[facility] Mjcjqwhujy9509 [place], [place] [address]Rk. Anjali Reagan MYELOCYTE # Normal [facility] Comment on above: Performed By: #### C CORI ####[facility] Yqypxkppur6589 [place], [place] [address]El. Anjali Reagan MYELOCYTE % Normal [facility] Comment on above: Performed By: #### C CORI ####[facility] Zhhaidnfsb7326 [place] [id number]. Anjali Reagan NRBC Normal [facility] Comment on above: Performed By: #### C CORI ####[facility] Cxjxbqdwln2561 [place] [address]Dr. Anjali Reagan PLT 119 103/ul Critically low 150-450 [facility] Comment on above: Performed By: #### C CORI ####[facility] Biqcygrbcf1985 [place] [address]Dr. Anjali Reagan RBC 4.14 106/ul Critically low 4.70-6.10 [facility] Comment on above: Performed By: #### C CORI ####[facility] Foyhnaihnz7597 [place] [address]Dr. Anjali Reagan RDW 16.1 % Critically high 11.0-15.0 [facility] Comment on above: Performed By: #### C CORI ####[facility] Ovvmerhvkw6812 [place] [address]Dr. Anjali Reagan SEG # 5.77 103/ul Normal 1.40-6.50 [facility] Comment on above: Performed By: #### C CORI ####[facility] Dqqegzzbts3801 [place] [address]Dr. Anjali Reagan SEG % 74.0 % Normal 43.0-75.0 The [facility] Comment on above: Performed By: #### C CORI ####[facility] Hgptvoiayz5393 [place] [address]Dr. Biancaramona Tez WBC 7.8 103/ul Normal 4.0-11.0 [facility] Comment on above: Performed By: #### C CORI ####[facility] Iagtnisedk7646 [place] [address]Dr. Anjali Reagan CRPon 07-05-2021 CRP [Mass/Vol] mg/L Critically high <=1.0 [facility] Comment on above: Performed By: #### C RP, BMP ####[facility] Otvbnfagti[address] [place], [place] [address]Dr. Anjali Reagan PROF CHEM 8 (BAS METB)on Anion gap [Moles/Vol] 10.1 mmol/L Normal [facility] Comment on above: Performed By: #### C RP, BMP ####[facility] Lvzhfyrmub[address] [place], [place] [address]Dr. Anjali Reagan Calcium [Mass/Vol] 9.6 mg/dL Normal 8.5-10.1 [facility] Comment on above: Performed By: #### C RP, BMP ####[facility] Xgtfukvpmd[address] [place], [place] [address]Dr. Anjali Reagan Chloride [Moles/Vol] 100 mmol/L Normal 98-107 [facility] Comment on above: Performed By: #### C RP, BMP ####[facility] Gmlfneqwbl[address] [place], [place] [address]Dr. Anjali Reagan CO2 [Moles/Vol] 30.4 mmol/L Critically high 22.0-30.0 [facility] Comment on above: Performed By: #### C RP, BMP ####[facility] Inelftqmtq[address] [place], [place] [address]Dr. Anjali Reagan Creatinine [Mass/Vol] 1.49 mg/dL Critically high 0.66-1.25 [facility] Comment on above: Performed By: #### C RP, BMP ####[facility] Aposmhysxc9488 [place] [id number]. Anjali Reagan EGFR-AF SAMOAN 58 mL/min/1.73m2 Critically low >=60 [facility] Comment on above: Performed By: #### C RP, BMP ####[facility] Mnhlamxbye39[address] [place], [place] [address]Dr. Anjali Reagan EGFR-NON AF SAMOAN 48 mL/min/1.73m2 Critically low >=60 [facility] Comment on above: Performed By: #### C RP, BMP ####[facility] Ultdjilkyh3512 [place] [address]Dr. Anjali Reagan Glucose [Mass/Vol] 191 mg/dL Critically high 74-106 [facility] Comment on above: Performed By: #### C RP, BMP ####[facility] Xioreeqpmq197[address] [place], [place] [address]Dr. Biancaramona Reagan Potassium [Moles/Vol] 4.5 mmol/L Normal 3.4-5.0 [facility] Comment on above: Performed By: #### C RP, BMP ####[facility] Fzjjzxxbit3342 [place] [address]Dr. Anjali Reagan Sodium [Moles/Vol] 136 mmol/L Critically low 137-145 [facility] Comment on above: Performed By: #### C RP, BMP ####[facility] Amqwecsbem2294 [place] [address]Dr. Anjali Reagan Urea nitrogen [Mass/Vol] 33.0 mg/dL Critically high 7.0-18 .0 [facility] Comment on above: Performed By: #### C RP, BMP ####[facility] Lvgfgodgyt5674 [place] [address]Dr. Anjali Reagan Urea nitrogen/Creatinine [Mass ratio] 22.1 mg/mg Normal [facility] Comment on above: Performed By: #### C RP, BMP ####[facility] Fapkmhbmor9[address] [place], [place] [address]Dr. Anjali Reagan SED RATE [facility] 2021 SED RATE 26 mm/hr Critically high <=20 [facility] Comment on above: Performed By: #### S EDR ####[facility] Hgxgpjgqtk4613 [place] [phone]. Anjali Reagan XR ANKLE RT MIN 3 VIEWSon XR ANKLE RT MIN 3 VIEWS Normal T he [facility] CT ANKLE RT WO CONon 022 CT ANKLE RT WO CON Normal [facility] CULTURE OTHERon 05-19-2021 CULTURE OTHER Normal [facility] Comment on above: Performed By: #### O THCX ####[facility] Tgcdphzjby6997 [place] [address]Dr. Biancaramona Reagan CULTURE ANAEROBICon 05-16-19 22 CULTURE ANAEROBIC Specimen Comments: RIGHT FOOT ABSCESS Culture Observations: NO GROWTH OF ANAEROBES AT 72 HOURS. Normal [facility] Comment on above: Performed By: #### A NACX ####[facility] Hacbsvwypz[address] [place], [place] [address]Dr. Anjali Reagan GRAM STAINon 05-16-2021 DIPHTHEROIDS Normal [facility] Comment on above: Performed By: #### G STAIN ####[facility] Iaeaxoqykl0328 [place] [address]Dr. Anjali Reagan EPITHELIALS Normal [facility] Comment on above: Performed By: #### G STAIN ####[facility] Psgaiuihbb6532 [place] [address]Dr. Anjali Reagan FUNGAL ELEMENTS Normal [facility] Comment on above: Performed By: #### G STAIN ####[facility] Knynmkjfcg0114 [place] [address]Dr. Anjali Reagan GRAM NEG BACILLI MANY Normal [facility] Comment on above: Performed By: #### G STAIN ####[facility] Adozgquwfs0091 [place] [address]Dr. Anjali Reagan GRAM NEG DIPPLOCOCCI Normal [facility] Comment on above: Performed By: #### G STAIN ####[facility] Lxoysqvbvd4540 [place] [address]Dr. Anjali Reagan GRAM POS BACILLI Normal [facility] Comment on above: Performed By: #### G STAIN ####[facility] Qhiopoohiv5691 [place], [place] [address]Dg. Anjali Reagan GRAM POSITIVE COCCI Normal [facility] Comment on above: Performed By: #### G STAIN ####[facility] Xdrjzxuvig1996 [place], [place] [address]Sf. Anjali Reagan GRAM STAIN SOURCE RIGHT FOOT Normal [facility] Comment on above: Performed By: #### G STAIN ####[facility] Uxrwkuchkj2199 [place], [place] [address]Vy. Anjali Reagan GS_DIPTH Normal [facility] Comment on above: Performed By: #### G STAIN ####[facility] Udsrayvmkm5630 [place], [place] [address]Iq. Anjali Reagan WBC MANY Normal [facility] Comment on above: Performed By: #### G STAIN ####[facility] Xnhzmnunoj1719 [place], [place] [address]Ov. Anjali Reagan XR ANKLE RT MIN 3 VIEWSon XR ANKLE RT MIN 3 VIEWS Normal T [facility] COMPREHENSIVE METABOLIC PANE Ray 04-16-2021 Albumin [Mass/Vol] 4.6 g/dL Normal 3.6-5.1 [facility] Comment on above: Performed By: #### 7 600, 496, 47993 #### [facility] [place] [address] [employer]: Juan Meraz MD Albumin/Globulin [Mass ratio] 1.7 {ratio} Normal 1.0-2.5 [facility] Comment on above: Performed By: #### 7 600, 496, 16076 #### [facility] [place] [address] [employer]: Juan Meraz MD ALP [Catalytic activity/Vol] 119 U/L Normal 35-144 [facility] Comment on above: Performed By: #### 7 600, 496, 09399 #### [facility] [place] [address] [employer]: Juan Meraz MD ALT [Catalytic activity/Vol] 19 U/L Normal 9-46 [facility] Comment on above: Performed By: #### 7 600, 496, 58717 #### [facility] [place] [address] [employer]: Juan Meraz MD AST [Catalytic activity/Vol] 20 U/L Normal 10-35 [facility] Comment on above: Performed By: #### 7 600, 496, 08435 #### [facility] [place] [address] [employer]: Juan Meraz MD Bilirubin [Mass/Vol] 0.6 mg/dL Normal 0.2-1.2 [facility] Comment on above: Performed By: #### 7 600, 496, 24435 #### [facility] [place] [address] [employer]: Juan Meraz MD Calcium [Mass/Vol] 9.9 mg/dL Normal 8.6-10.3 [facility] Comment on above: Performed By: #### 7 600, 496, 18019 #### [facility] [place] [address] [employer]: Juan Meraz MD Chloride [Moles/Vol] 102 mmol/L Normal 98-110 [facility] Comment on above: Performed By: #### 7 600, 496, 02482 #### [facility] [place] [address] [employer]: Juan Meraz MD CO2 [Moles/Vol] 28 mmol/L Normal 20-32 [facility] Comment on above: Performed By: #### 7 600, 496, 00330 #### [facility] [place] [address] [employer]: Juan Meraz MD Creatinine [Mass/Vol] 1.59 mg/dL High 0.70-1.[address] [facility] Comment on above: Result Comment: For patients >49 years of age, the reference limit for Creatinine is approximately 13% higher for people identified as -[place]. Performed By: #### 7 600, 496, 24598 #### [facility] [address], [address] [place] [address] [employer]: Juan Meraz MD eGFR NON-AFR. SAMOAN 46 mL/min/1.73m2 Low > OR = 60 [facility] Comment on above: Performed By: #### 7 600, 496, 22333 #### [facility] [address], [address] [place] [address] [employer]: Juan Meraz MD GFR/1.73 sq M.predicted among blacks MDRD (S/P/Bld) [Vol rate/Area] 53 mL/min/{1.73_m2} Low > OR = 60 [facility] Comment on above: Performed By: #### 7 600, 496, 74199 #### [facility] [address], [address] [place] [address] [employer]: Juan Meraz MD Globulin (S) [Mass/Vol] 2.7 g/dL Normal 1.9-3.7 [facility] Comment on above: Performed By: #### 7 600, 496, 45888 #### [facility] [place] [address] [employer]: Juan Meraz MD Glucose [Mass/Vol] 176 mg/dL High 65-139 [facility] Comment on above: Result Comment: Non-fasting reference interval For someone without known diabetes, a glucose value >125 mg/dL indicates that they may have diabetes and this should be confirmed with a follow-up test. Performed By: #### 7 600, 496, 02100 #### [facility] [address], [address] [place] [address] [employer]: Juan Meraz MD Potassium [Moles/Vol] 4.2 mmol/L Normal 3.5-5.[address] [facility] Comment on above: Performed By: #### 7 600, 496, 78598 #### [facility] [place] [address] [employer]: Juan Meraz MD Protein [Mass/Vol] 7.3 g/dL Normal 6.1-8.1 [facility] Comment on above: Performed By: #### 7 600, 496, 49909 #### [facility] [address], [address] [place] [address] [employer]: Juan Meraz MD Sodium [Moles/Vol] 138 mmol/L Normal 135-146 [facility] Comment on above: Performed By: #### 7 600, 496, 16013 #### [facility] of [address], [address] [place] [address] [employer]: Juan Meraz MD Urea nitrogen [Mass/Vol] 48 mg/dL High 7- [facility] Comment on above: Performed By: #### 7 600, 496, 26562 #### [facility] [address], [address] [place] [address] [employer]: Juan Meraz MD Urea nitrogen/Creatinine [Mass ratio] 30 mg/mg High 6- [facility] Comment on above: Performed By: #### 7 600, 496, 97085 #### [facility] of [address], [address] [place] [address] [employer]: Juan Meraz MD HEMOGLOBIN A1con 04-16-2021 HEMOGLOBIN [...] 1 0165, 496, 905 #### [facility] [address], [address] [place] [address] [employer]: Juan Meraz MD LIPID PANEL, [facility] 04-02 Cholesterol [Mass/Vol] 108 mg/dL Normal <200 [facility] Comment on above: Order Comment: FASTI NG:NO FASTING: NO Performed By: #### 7 600, 496, 02532 #### [facility] [address], [address] [place] [address] [employer]: Juan Meraz MD Cholesterol in HDL [Mass/Vol] 47 mg/dL Normal > OR = 40 [facility] Comment on above: Order Comment: FASTI NG:NO FASTING: NO Performed By: #### 7 600, 496, 03896 #### [facility] [address], [address] [place] [address] [employer]: Juan Meraz MD Cholesterol in LDL [Mass/Vol] [...] LDL-C. Camden SS et al. TABITHA. 2013;310(19): 4104-0362 (http://education.[employer].Qiro/faq/JXK547) Performed By: #### 7 600, 496, 14548 #### [facility] [address], [address] [place] [address] [employer]: Juan Meraz MD Cholesterol.total/Choles terol in HDL [Mass ratio] 2.3 {ratio} Normal <5.0 [facility] Comment on above: Order Comment: FASTI NG:NO FASTING: NO Performed By: #### 7 600, 496, 40744 #### [facility] [address], [address] [place] [address] [employer]: Juan Meraz MD NON HDL CHOLESTEROL 61 mg/dL (calc) Normal <130 [facility] Comment on above: Order Comment: FASTI NG:NO FASTING: NO Result Comment: For patients with diabetes plus 1 major ASCVD risk factor, treating to a non-HDL-C goal of <100 mg/dL (LDL-C of <70 mg/dL) is considered a therapeutic option. Performed By: #### 7 600, 496, 29605 #### [facility] [address] [place] [address], [address] [place] [address] [employer]: Juan Meraz MD Triglyceride [Mass/Vol] 102 mg/dL Normal <150 [facility] Comment on above: Order Comment: FASTI NG:NO FASTING: NO Performed By: #### 7 600, 496, 12923 #### [facility] [address], [address] [place] [address] [employer]: Juan Meraz MD CT ANKLE RT WO CONon 022 CT ANKLE RT WO CON Normal [facility] XR ANKLE RT MIN 3 VIEWSon XR ANKLE RT MIN 3 VIEWS Normal T [facility] ACID FAST SMEAR AND CXon Acid Fast Culture Negative Normal [facility] Comment on above: Result Comment: No a rj fast bacilli isolated after 6 weeks. Performed By: #### A FB ####[facility] Wsfbsvwbvq[address] [place], [place] [address]Dr. Anjali Reagan Acid Fast Smear Negative Normal [facility] Comment on above: Performed By: #### A FB ####[facility] Rkqeptlobg[address] [place], [place] [address]Dr. Anjali [employer] Specimen Processing Direct Inoculation Normal [facility] Comment on above: Performed By: #### A FB ####[facility] Uogdnysfbu7963 [place] [address]Dr. Anjali Reagan ACID FAST SMEAR AND CXon Acid Fast Culture Negative Normal [facility] Comment on above: Result Comment: No a rj fast bacilli isolated after 6 weeks. Performed By: #### A FB ####[facility] Gfiebquxes6753 [place] [address]Dr. Anjali Reagan Acid Fast Smear Negative Normal [facility] Comment on above: Performed By: #### A FB ####[facility] Fgbzenedhw1702 [place] [address]Dr. Anjali [employer] Specimen Processing Tissue Grinding Normal [facility] Comment on above: Performed By: #### A FB ####[facility] Sfownztgop2041 [place] [address]Dr. Anjali [employer] Specimen Processing Direct Inoculation Normal [facility] Comment on above: Performed By: #### A FB ####[facility] [address] [place], [place] [address]Dr. Anjali Reagan FUNGAL CULTUREon 03-15-2021 Fungus (Mycology) Culture Final report [facility] Comment on above: Performed By: #### C XFUN ####[facility] Jlabrguhvt235[address] [place], [place] [address]Dr. Anjali Reagan Fungus Stain Final report [facility] Comment on above: Performed By: #### C XFUN ####[facility] Unjj[address]znvk[address] [place], [place] [address]Dr. Anjali Reagan Result 1 Comment [facility] Comment on above: Result Comment: MIRIAN/ Calcofluor preparation: no fungus observed. Performed By: #### C XFUN ####[facility] Ugvmlezzmx[address] [place], [place] [address]Dr. Anjali Reagan Result Comment: No y east or mold isolated after 4 weeks. FUNGAL CULTUREon 03-09-2021 Fungus (Mycology) Culture Final report [facility] Comment on above: Performed By: #### C XFUN ####[facility] Tirqqspyrx[address] [place], [place] [address]Dr. Anjali Reagan Fungus Stain Final report Normal [facility] Comment on above: Performed By: #### C XFUN ####[facility] Inmgddvfph[address] [place], [place] [address]Dr. Anjali Reagan Result 1 Comment Normal [facility] Comment on above: Result Comment: MIRIAN/ Calcofluor preparation: no fungus observed. Performed By: #### C XFUN ####[facility] Ctijysxahh8712 [place], [place] [address]IpVeronica Reagan Result Comment: No y east or mold isolated after 4 weeks. XR ANKLE RT MIN 3 VIEWSon XR ANKLE RT MIN 3 VIEWS Normal T [facility] Otolaryngology Office/Clinic Noteon 02-28-2021 Otolaryngology Office/Clinic [...] time. They were unable to travel to [place] as he required another right ankle surgery. [...] Dr. Freed. Previous pathology by physician in [place] about 1 year ago. PMHx of multiple [...] postauricular m (more content not included)... Normal [facility] CBC W MANUAL DIFFon 02-13-20 21 ATYPICAL LYMPH # Normal [facility] Comment on above: Performed By: #### C CORI ####[facility] Dnfytbyheb[address] [place], [place] [address]Dr. Anjali Reagan ATYPICAL LYMPH % Normal [facility] Comment on above: Performed By: #### C CORI ####[facility] Cblsoczhvo[address] [place], [place] [address]Dr. Anjali Reagan BAND # 0.3 103/ul Normal 0.0-0.3 [facility] Comment on above: Performed By: #### C CORI ####[facility] Kueblftssw[address] [place], [place] [address]Dr. Anjali Reagan BAND % 4 % Normal 0-5 [facility] Comment on above: Performed By: #### C CORI ####[facility] Stezjhuwpp[address] [place], [place] [address]Dr. Anjali Reagan BASOM # 0.00 103/ul Normal 0.00-0.10 [facility] Comment on above: Performed By: #### C CORI ####[facility] Avzhxdqbgu214[address] [place], [place] [address]Dr. Anjali Reagan BASOM % 0.0 % Critically low 0.2-2.0 [facility] Comment on above: Performed By: #### C CORI ####[facility] Tjljqykegs[address] [place], [place] [address]Dr. Anjali Reagan BLAST # Normal [facility] Comment on above: Performed By: #### C CORI ####[facility] Trdpbsiuoy0447 [place] [address]Dr. Anjali Reagan BLAST % Normal [facility] Comment on above: Performed By: #### C CORI ####[facility] Bjdclgafcq4523 [place] [address]Dr. Anjali Reagan CORRECTED WBC Normal 4.0-11.0 [facility] Comment on above: Performed By: #### C CORI ####[facility] Goxwnlctqw7615 [place] [address]Dr. Anjali Reagan EOS # 0.28 103/ul Normal 0.00-0.70 [facility] Comment on above: Performed By: #### C CORI ####[facility] Sqaxjcbpvi[address] [place], [place] [address]Dr. Anjali Reagan EOS% 4.0 % Normal 0.9-7.0 [facility] Comment on above: Performed By: #### C CORI ####[facility] Xkjmbdercr8[address] [place], [place] [address]Dr. Anjali Reagan HCT 28.5 % Critically low 42.0-54.0 [facility] Comment on above: Performed By: #### C CORI ####[facility] Smkwvdbdmv[address] [place], [place] [address]Dr. Anjali Reagan HGB 8.6 g/dl Critically low 14.0-18.0 [facility] Comment on above: Performed By: #### C CORI ####[facility] Eizrcxfrcr[address] [place], [place] [address]Dr. Anjali Reagan HYPOCHROMASIA 3+ Normal [facility] Comment on above: Performed By: #### C CORI ####[facility] Xzopkffrjx[address] [place], [place] [address]Dr. Anjali Reagan LYMPHM # 0.57 103/ul Critically low 1.20-3.80 [facility] Comment on above: Performed By: #### C CORI ####[facility] Kslmqthjal9240 [place] [address]Dr. Anjali Reagan LYMPHM% 8.0 % Critically low 20.5-60.0 [facility] Comment on above: Performed By: #### C CORI ####[facility] Ldajtzpwvj5759 [place] [address]Dr. Anjali Reagan MCH 25.4 pg Critically low 25.9-34.0 [facility] Comment on above: Performed By: #### C CORI ####[facility] Mfkfivlpns6982 [place] [address]Dr. Anjali Reagan MCHC 30.2 g/dl Normal 29.9-35.2 [facility] Comment on above: Performed By: #### C CORI ####[facility] Gthsuekwgd4315 [place] [address]Dr. Anjali Reagan MCV 84.1 fL Normal 80.0-94.0 [facility] Comment on above: Performed By: #### C CORI ####[facility] Cgqlntwfva210[address] [place], [place] [address]Dr. Anjali Reagan METAMYELOCYTE # Normal [facility] Comment on above: Performed By: #### C CORI ####[facility] Jlfadbjgmc8[address] [place], [place] [address]Dr. Anjali Reagan METAMYELOCYTE % Normal [facility] Comment on above: Performed By: #### C CORI ####[facility] Aavbfevsfy5066 [place] [id number]. Anjali Reagan MICROCYTOSIS 2+ Normal [facility] Comment on above: Performed By: #### C CORI ####[facility] Ouhqsfnntp8753 [place] [id number]. Anjali Reagan MONOM# 0.14 103/ul Critically low 0.30-0.80 [facility] Comment on above: Performed By: #### C CORI ####[facility] Ewxzzwpajl1180 [place] [id number]. Anjali Reagan MONOM% 2.0 % Normal 1.7-12.0 [facility] Comment on above: Performed By: #### C CORI ####[facility] Vgaolrhwbq5299 [place], [place] [address]Rq. Anjali Reagan MPV 9.3 fL Critically low 9.5-13.5 [facility] Comment on above: Performed By: #### C CORI ####[facility] Vzgqxmahyo2714 [place], [place] [address]Ha. Anjali Reagan MYELOCYTE # Normal [facility] Comment on above: Performed By: #### C CORI ####[facility] Jwlytmjlhn6695 [place], [place] [address]Ay. Anjali Reagan MYELOCYTE % Normal [facility] Comment on above: Performed By: #### C CORI ####[facility] Llirmkbnqb6912 [place] [id number]. Anjail Reagan NRBC 1 Normal [facility] Comment on above: Performed By: #### C CORI ####[facility] Ghidfxrqmo3066 [place] [id number]. Anjali Reagan PLT 186 103/ul Normal 150-450 [facility] Comment on above: Performed By: #### C CORI ####[facility] Dvbrzoziro6945 [place] [id number]. Anjali Raegan RBC 3.39 106/ul Critically low 4.70-6.10 [facility] Comment on above: Performed By: #### C CORI ####[facility] Uzuvpniynf9518 [place] [id number]. Anjali Reagan RDW 18.8 % Critically high 11.0-15.0 [facility] Comment on above: Performed By: #### C CORI ####[facility] Drzgcvopjc3799 [place] [id number]. Anjali Reagan SEG # 5.82 103/ul Normal 1.40-6.50 [facility] Comment on above: Performed By: #### C CORI ####[facility] Ynjprngngm1086 [place] [id number]. Anjali Reagan SEG % 82.0 % Critically high 43.0-75.0 [facility] Comment on above: Performed By: #### C BCMAN ####[facility] Inlmtqquxp8918 [place] [address]Dr. Anjali Reagan WBC 7.1 103/ul Normal 4.0-11.0 [facility] Comment on above: Performed By: #### C BCMAN ####[facility] Bthxnyfqqh2256 [place] [address]Dr. Anjali Reagan POINT OF CARE GLUCOSEon 01-31 Glucose [Mass/Vol] 175 mg/dL Critically high 74-106 [facility] Comment on above: Performed By: #### P OCGLUC ####[facility] Gytrgvyfnx689[address] [place], [place] [address]Dr. Anjali Reagan PROF 14(COMP METB)on 021 Albumin [Mass/Vol] 2.4 g/dL Critically low 3.5-5.[address] [facility] Comment on above: Performed By: #### C MP ####[facility] Rpjptvvxco756[address] [place], [place] [address]Dr. Anjali Reagan Albumin/Globulin [Mass ratio] 0.6 {ratio} Normal [facility] Comment on above: Performed By: #### C MP ####[facility] Oftphupkgw818[address] [place], [place] [address]Dr. Anjali Reagan ALP [Catalytic activity/Vol] 93 U/L Normal 38-126 [facility] Comment on above: Performed By: #### C MP ####[facility] Sypuicwfpu04110[address] [place], [place] [address]Dr. Anjali Reagan ALT [Catalytic activity/Vol] 18 U/L Critically low 21-72 [facility] Comment on above: Performed By: #### C MP ####[facility] Plnjozdhfm476508 [address] [place], [place] [address]Dr. Anjali Reagan Anion gap [Moles/Vol] 12.5 mmol/L Normal [facility] Comment on above: Performed By: #### C MP ####[facility] Kfqfsmpbbp3915[address] [place], [place] [address]Dr. Anjali Reagan AST [Catalytic activity/Vol] 30 U/L Normal 17-59 [facility] Comment on above: Performed By: #### C MP ####[facility] Ipcfxefavn1728 [place] [address]Dr. Biancaramona Tez Bilirubin [Mass/Vol] 0.5 mg/dL Normal 0.2-1.3 [facility] Comment on above: Performed By: #### C MP ####[facility] Nhwarcplgp0101[address] [place], [place] [address]Dr. Biancaramona Tez Calcium [Mass/Vol] 8.5 mg/dL Normal 8.4-10.2 [facility] Comment on above: Performed By: #### C MP ####[facility] Ykkjlypsdp0525[address] [place], [place] [address]Dr. Biancaramona Tez Chloride [Moles/Vol] 103 mmol/L Normal 98-107 [facility] Comment on above: Performed By: #### C MP ####[facility] Gwuebheynb934[address] [place], [place] [address]Dr. Anjali Tez CO2 [Moles/Vol] 25.8 mmol/L Normal 22.0-30.0 [facility] Comment on above: Performed By: #### C MP ####[facility] Ajawevftst962[address] [place], [place] [address]Dr. Anjali Tez Creatinine [Mass/Vol] 1.09 mg/dL Normal 0.66-1.25 [facility] Comment on above: Performed By: #### C MP ####[facility] Zrxhnxlbff249[address] [place], [place] [address]Dr. Biancaramona Tez EGFR-AF SAMOAN >60 Normal >=60 [facility] Comment on above: Performed By: #### C MP ####[facility] Lpzrjpqalw243208 [address] [place], [place] [address]Dr. Anjali Reagan EGFR-NON AF SAMOAN >60 Normal >=60 [facility] Comment on above: Performed By: #### C MP ####[facility] Avbihuebeg517[address] [place], [place] [address]Dr. Anjali Reagan Globulin (S) [Mass/Vol] 3.7 g/dL Normal [facility] Comment on above: Performed By: #### C MP ####[facility] Dkeqzgjbqa6773 [place] [address]Dr. Anjali Reagan Glucose [Mass/Vol] 165 mg/dL Critically high 74-106 [facility] Comment on above: Performed By: #### C MP ####[facility] Swnyngiyxt0257 [place] [address]Dr. Anjali Reagan Potassium [Moles/Vol] 4.3 mmol/L Normal 3.4-5.0 [facility] Comment on above: Performed By: #### C MP ####[facility] Lmoxpegsod9969 [place] [address]Dr. Anjali Reagan Protein [Mass/Vol] 6.1 g/dL Normal 6.1-8.2 [facility] Comment on above: Performed By: #### C MP ####[facility] Mypplvmgrs588[address] [place], [place] [address]Dr. Anjali Reagan Sodium [Moles/Vol] 137 mmol/L Normal 137-145 [facility] Comment on above: Performed By: #### C MP ####[facility] Yqgaoxabvw0827[address] [place], [place] [address]Dr. Anjali Reagan Urea nitrogen [Mass/Vol] 24.0 mg/dL Critically high 9.0-20 .0 [facility] Comment on above: Performed By: #### C MP ####[facility] Szlssvxufi3793 [place] [address]Dr. Anjali Reagan Urea nitrogen/Creatinine [Mass ratio] 22.0 mg/mg Normal [facility] Comment on above: Performed By: #### C MP ####[facility] Glacgpsdis909[address] [place], [place] [address]Dr. Anjali Tez ALBUMINon 02-11-2021 Albumin [Mass/Vol] 2.8 g/dL Critically low 3.5-5.[address] [facility] Comment on above: Performed By: #### P REALB, ALB ####[facility] Vnwbfugnvz126[address] [place], [place] [address]Dr. Anjali Tez CBC AUTO DIFFon 02-11-2021 BASO # 0.0 103/ul Normal 0.0-0.1 [facility] Comment on above: Performed By: #### C BC ####[facility] Abmuvladud199[address] [place], [place] [address]Dr. Anjali Reagan Basophils/100 WBC (Bld) 0.5 % Normal 0.2-2.0 [facility] Comment on above: Performed By: #### C BC ####[facility] Yohwekjsuz785[address] [place], [place] [address]Dr. Anjali Reagan EO # 0.5 103/ul Normal 0.0-0.7 [facility] Comment on above: Performed By: #### C BC ####[facility] Vtbgcujnuc495[address] [place], [place] [address]Dr. Anjali Tez Eosinophils/100 WBC (Bld) 7.4 % Critically high 0.9-7.0 [facility] Comment on above: Performed By: #### C BC ####[facility] Fljajknubt446[address] [place], [place] [address]Dr. Anjali Reagan Erythrocyte distribution width (RBC) [Ratio] 18.7 % Critically high 11.0-15.0 [facility] Comment on above: Performed By: #### C BC ####[facility] Vhebrxfsdk144[address] [place], [place] [address]Dr. Anjali Reagan Hematocrit (Bld) [Volume fraction] 30.7 % Critically low 42.0-54.0 [facility] Comment on above: Performed By: #### C BC ####[facility] Pdqahbqzua912[address] [place], [place] [address]Dr. Anjali Reagan Hemoglobin (Bld) [Mass/Vol] 9.5 g/dL Critically low 14.0-18.0 [facility] Comment on above: Performed By: #### C BC ####[facility] Xpwglmfrok64[address] [place], [place] [address]Dr. Anjali Reagan IG # 0.05 10e3/ul Critically high 0.00-0.03 [facility] Comment on above: Performed By: #### C BC ####[facility] Vesgzlelhx8558 [place] [id number]. Anjali Reagan IG % 0.8 % Critically high 0.0-0.5 [facility] Comment on above: Performed By: #### C BC ####[facility] Iioggcnnrj9166 [place] [address]Dr. Anjali Reagan LYMPH # 0.6 103/ul Critically low 1.2-3.8 [facility] Comment on above: Performed By: #### C BC ####[facility] Lcpirrpfum0863 [place] [address]Dr. Anjali Tez Lymphocytes/100 WBC (Bld) 8.5 % Critically low 20.5-60.0 [facility] Comment on above: Performed By: #### C BC ####[facility] Rwjbrbkply8303 [place] [address]Dr. Biancaramona Reagan MANUAL DIFF REQ NO Normal [facility] Comment on above: Performed By: #### C BC ####[facility] Bdzcabwjrz2325 [place] [address]Dr. Anjali Reagan MCH (RBC) [Entitic mass] 25.3 pg Critically low 25.9-34 .0 [facility] Comment on above: Performed By: #### C BC ####[facility] Rggutbrynh307[address] [place], [place] [address]Dr. Anjali Reagan MCHC (RBC) [Mass/Vol] 30.9 g/dL Normal 29.9-35.2 [facility] Comment on above: Performed By: #### C BC ####[facility] Ypsadxxhhk9098 [place] [address]Dr. Anjali Reagan MCV (RBC) [Entitic vol] 81.6 fL Normal 80.0-94.0 [facility] Comment on above: Performed By: #### C BC ####[facility] Kgcbvsnpyf006[address] [place], [place] [address]Dr. Anjali Reagan MONO # 0.8 103/ul Normal 0.3-0.8 [facility] Comment on above: Performed By: #### C BC ####[facility] Srktafilwj4475 [place] [id number]. Anjali Reagan Monocytes/100 WBC (Bld) 12.2 % Critically high 1.7-12. 0 [facility] Comment on above: Performed By: #### C BC ####[facility] Cezmhmhvzn5593 [place] [id number]. Anjali Reagan NEUT # 4.6 103/ul Normal 1.4-6.5 [facility] Comment on above: Performed By: #### C BC ####[facility] Zdrrxjfzoe9836 [place] [id number]. Anjali Reagan Neutrophils/100 WBC (Bld) 70.6 % Normal 43.0-75.0 [facility] Comment on above: Performed By: #### C BC ####[facility] Nsktnzzlfw7553 [place] [address]Dr. Anjali Reagan Platelet mean volume (Bld) [Entitic vol] 9.6 fL Normal 9.5-13.5 [facility] Comment on above: Performed By: #### C BC ####[facility] Zxdhncueuy0550 [place] [address]Dr. Anjali Reagan PLT 205 103/ul Normal 150-450 [facility] Comment on above: Performed By: #### C BC ####[facility] Hcqwohitxm4213 [place] [id number]. Anjali Reagan RBC 3.76 106/ul Critically low 4.70-6.10 [facility] Comment on above: Performed By: #### C BC ####[facility] Menecsyyft1609 [place] [address]Dr. Anjali Reagan WBC 6.5 103/ul Normal 4.0-11.0 [facility] Comment on above: Performed By: #### C BC ####[facility] Vdftyqrvgw3230 [place] [id number]. Anjali Reagan CULTURE ANAEROBICon 02-12-20 21 CULTURE ANAEROBIC Specimen Comments: RIGHT ANKLE JOINT Culture Observations: NO GROWTH AT 72 HRS Normal [facility] Comment on above: Performed By: #### A NACX ####[facility] Pajoxkhazr8125 [place] [id number]. Biancaramona Tez CULTURE OTHERon 02-11-2021 CULTURE OTHER Specimen Comments: RIGHT ANKLE JOINT Culture Observations: NO GROWTH AT 72 HRS Normal [facility] Comment on above: Performed By: #### O THCX ####[facility] Egbbozmryb2487 [place] [phone]. Anjali Reagan GRAM STAINon 02-11-2021 COMMENTS NO ORGANISMS OBSERVED Normal [facility] Comment on above: Performed By: #### G STAIN ####[facility] Cpquxbgvbd800[address] [place], [place] [address]Dr. Anjali Reagan DIPHTHEROIDS Normal [facility] Comment on above: Performed By: #### G STAIN ####[facility] Nccertkvbl564[address] [place], [place] [address]Dr. Anjali Reagan EPITHELIALS Normal [facility] Comment on above: Performed By: #### G STAIN ####[facility] Vytxosktzj742[address] [place], [place] [address]Dr. Anjali Reagan FUNGAL ELEMENTS Normal [facility] Comment on above: Performed By: #### G STAIN ####[facility] Vyeabravha045[address] [place], [place] [address]Dr. Anjali Reagan GRAM NEG BACILLI Normal [facility] Comment on above: Performed By: #### G STAIN ####[facility] Xshtckbzcq19[address] [place], [place] [address]Dr. Anjali Reagan GRAM NEG DIPPLOCOCCI Normal [facility] Comment on above: Performed By: #### G STAIN ####[facility] Mqniawuwmv55450[address] [place], [place] [address]Dr. Anjali Reagan GRAM POS BACILLI Normal [facility] Comment on above: Performed By: #### G STAIN ####[facility] Qleeixxopv526[address] [place], [place] [address]Dr. Anjali Reagan GRAM POSITIVE COCCI Normal [facility] Comment on above: Performed By: #### G STAIN ####[facility] Sdedpewpkp505[address] [place], [place] [address]Dr. Anjali Reagan GRAM STAIN SOURCE Right ankle joint Normal [facility] Comment on above: Performed By: #### G STAIN ####[facility] Tippmivfvl2526 [place] [address]Dr. Anjali Reagan GS_DIPTH Normal [facility] Comment on above: Performed By: #### G STAIN ####[facility] Pvhcumegzv9229 [place] [address]Dr. Anjali Reagan WBC FEW Normal [facility] Comment on above: Performed By: #### G STAIN ####[facility] Ryphzamwkg6605 [place] [address]Dr. Anjali Reagan POINT OF CARE GLUCOSEon 01-31 Glucose [Mass/Vol] 196 mg/dL Critically high 74-106 [facility] Comment on above: Performed By: #### P OCGLUC ####[facility] Xqrgvtswcu1303 [place] [address]Dr. Anjali Reagan Glucose [Mass/Vol] 176 mg/dL Critically high 74-106 [facility] Comment on above: Performed By: #### P OCGLUC ####[facility] Cxsednalnj3243 [place] [address]Dr. Anjali Reagan PREALBUMINon 02-11-2021 Prealbumin [Mass/Vol] 17.8 mg/dL Normal 17.6-36.0 [facility] Comment on above: Performed By: #### P REALB, ALB ####[facility] Zmupijwdmp3307 [place] [address]Dr. Anjali Reagan PROF 14(COMP METB)on 021 Albumin [Mass/Vol] 2.6 g/dL Critically low 3.5-5.[address] [facility] Comment on above: Performed By: #### B MP, CMP ####[facility] Lisvoivpwe5421 [place] [address]Dr. Anjali Reagan Albumin/Globulin [Mass ratio] 0.6 {ratio} Normal [facility] Comment on above: Performed By: #### B MP, CMP ####[facility] Zdfktjdtgb3467 [place] [address]Dr. Anjali Reagan ALP [Catalytic activity/Vol] 104 U/L Normal 38-126 [facility] Comment on above: Performed By: #### B MP, CMP ####[facility] Pbehhfuzve4403 [place] [address]Dr. Anjali Reagan ALT [Catalytic activity/Vol] 17 U/L Critically low 21-72 [facility] Comment on above: Performed By: #### B MP, CMP ####[facility] Ujrsapfdft21[address] [place], [place] [address]Dr. Anjali Reagan AST [Catalytic activity/Vol] 26 U/L Normal 17-59 [facility] Comment on above: Performed By: #### B MP, CMP ####[facility] Iqtddcoyyf822[address] [place], [place] [address]Dr. Anjali Reagan Bilirubin [Mass/Vol] 0.5 mg/dL Normal 0.2-1.3 [facility] Comment on above: Performed By: #### B MP, CMP ####[facility] Ceccaxijpy889[address] [place], [place] [address]Dr. Anjali Reagan Globulin (S) [Mass/Vol] 4.1 g/dL Normal T [facility] Comment on above: Performed By: #### B MP, CMP ####[facility] Lmhfhltvik24[address] [place], [place] [address]Dr. Anjali Reagan Protein [Mass/Vol] 6.7 g/dL Normal 6.1-8.2 [facility] Comment on above: Performed By: #### B MP, CMP ####[facility] Ieoogytzuz[address] [place], [place] [address]Dr. Anjali Reagan PROF CHEM 8 (BAS METB)on Anion gap [Moles/Vol] 11.3 mmol/L Normal [facility] Comment on above: Performed By: #### B MP, CMP ####[facility] Qbkfexwrde701[address] [place], [place] [address]Dr. Anjali Reagan Calcium [Mass/Vol] 9.0 mg/dL Normal 8.4-10.2 [facility] Comment on above: Performed By: #### B MP, CMP ####[facility] Icrbzbixno517[address] [place], [place] [address]Dr. Anjali Reagan Chloride [Moles/Vol] 101 mmol/L Normal 98-107 [facility] Comment on above: Performed By: #### B MP, CMP ####[facility] Uduwnhkwpr968[address] [place], [place] [address]Dr. Anjali Reagan CO2 [Moles/Vol] 28.0 mmol/L Normal 22.0-30.0 [facility] Comment on above: Performed By: #### B MP, CMP ####[facility] Qphzmtmwoq5317[address] [place], [place] [address]Dr. Anjali Reagan Creatinine [Mass/Vol] 1.23 mg/dL Normal 0.66-1.25 [facility] Comment on above: Performed By: #### B ALEA, CMP ####[facility] Wcjpvfjqpw037[address] [place], [place] [address]Dr. Anjali Reagan EGFR-AF SAMOAN >60 Normal >=60 [facility] Comment on above: Performed By: #### Grace COSBY, CMP ####[facility] Wxocwwwfkp801[address] [place], [place] [address]Dr. Anjali Reagan EGFR-NON AF SAMOAN 59 mL/min/1.73m2 Critically low >=60 [facility] Comment on above: Performed By: #### Grace COSBY, CMP ####[facility] Djjmsptuww064[address] [place], [place] [address]Dr. Anjali Reagan Glucose [Mass/Vol] 109 mg/dL Critically high 74-106 [facility] Comment on above: Performed By: #### B ALEA, CMP ####[facility] Levddvislc[address] [place], [place] [address]Dr. Anjali Tez Potassium [Moles/Vol] 3.9 mmol/L Normal 3.4-5.0 [facility] Comment on above: Performed By: #### B MP, CMP ####[facility] Fptnpijtqd496[address] [place], [place] [address]Dr. Biancaramona Reagan Sodium [Moles/Vol] 136 mmol/L Critically low 137-145 [facility] Comment on above: Performed By: #### B ALEA, CMP ####[facility] Drputwsirf7746 [place] [address]Dr. Anjali Reagan Urea nitrogen [Mass/Vol] 32.0 mg/dL Critically high 9.0-20 .0 [facility] Comment on above: Performed By: #### B MP, CMP ####[facility] Tjpnew[address]em[address] [place], [place] [address]Dr. Anjali Reagan Urea nitrogen/Creatinine [Mass ratio] 26.0 mg/mg Normal [facility] Comment on above: Performed By: #### B MP, CMP ####[facility] Rjifwdztce[address] [place], [place] [address]Dr. Anjali Reagan VANCOMYCIN TROUGHon 02-12-20 VANCOMYCIN TROUGH 9.8 ug/ml Normal 5.0-20.0 [facility] Comment on above: Performed By: #### V ANCT ####[facility] Xlowdaubmn1916[address] [place], [place] [address]Dr. Anjali Tez XR ANKLE RT 2Von 02-11-2021 XR ANKLE RT 2V Normal [facility] XR FOOT RT MIN 3 VIEWSon XR FOOT RT MIN [address] [facility] CBC AUTO DIFFon 02-10-2021 BASO # 0.0 103/ul Normal 0.0-0.1 [facility] Comment on above: Performed By: #### C BC ####[facility] Chloweteyf[address] [place], [place] [address]Dr. Anjali Tez Basophils/100 WBC (Bld) 0.3 % Normal 0.2-2.0 [facility] Comment on above: Performed By: #### C BC ####[facility] Jewroogwod4427 [place] [address]Dr. Anjali Tez EO # 0.2 103/ul Normal 0.0-0.7 [facility] Comment on above: Performed By: #### C BC ####[facility] Zqjzqutlhx[address] [place], [place] [address]Dr. Anjali Tez Eosinophils/100 WBC (Bld) 2.7 % Normal 0.9-7.0 [facility] Comment on above: Performed By: #### C BC ####[facility] Nqvxfcjnca7535 [place] [address]Dr. Anjali Reagan Erythrocyte distribution width (RBC) [Ratio] 18.8 % Critically high 11.0-15.0 [facility] Comment on above: Performed By: #### C BC ####[facility] Vfvxrhwbgv7[address] [place] [address]Dr. Anjali Reagan Hematocrit (Bld) [Volume fraction] 31.6 % Critically low 42.0-54.0 [facility] Comment on above: Performed By: #### C BC ####[facility] Ribhprijlv32[address] [place] [address]Dr. Anjali Reagan Hemoglobin (Bld) [Mass/Vol] 9.6 g/dL Critically low 14.0-18.0 [facility] Comment on above: Performed By: #### C BC ####[facility] Zglvzsvp[address] [place], [place] [address]Dr. Anjali Reagan IG # 0.04 10e3/ul Critically high 0.00-0.03 [facility] Comment on above: Performed By: #### C BC ####[facility] Rwxaemtidn025[address] [place], [place] [address]Dr. Anjali Reagan IG % 0.6 % Critically high 0.0-0.5 [facility] Comment on above: Performed By: #### C BC ####[facility] Wevxyompos[address] [place], [place] [address]Dr. Anjali Reagan LYMPH # 0.9 103/ul Critically low 1.2-3.8 [facility] Comment on above: Performed By: #### C BC ####[facility] Kvmnnhzqyu2548 [place] [address]Dr. Anjali Reagan Lymphocytes/100 WBC (Bld) 12.2 % Critically low 20.5-60.0 [facility] Comment on above: Performed By: #### C BC ####[facility] Pludkdcomr[address] [place], [place] [address]Dr. Anjali Reagan MANUAL DIFF REQ NO Normal [facility] Comment on above: Performed By: #### C BC ####[facility] Gsmmhqtxjx4927 [place] [id number]. Anjali Tez MCH (RBC) [Entitic mass] 24.7 pg Critically low 25.9-34 .0 [facility] Comment on above: Performed By: #### C BC ####[facility] Vagachysdp1186 [place] [address]Dr. Anjali Tez MCHC (RBC) [Mass/Vol] 30.4 g/dL Normal 29.9-35.2 [facility] Comment on above: Performed By: #### C BC ####[facility] Oqdgaycpod6425 [place] [address]Dr. Anjali Reagan MCV (RBC) [Entitic vol] 81.4 fL Normal 80.0-94.0 [facility] Comment on above: Performed By: #### C BC ####[facility] Bmcedsimjo[address] [place], [place] [address]Dr. Anjali Reagan MONO # 0.7 103/ul Normal 0.3-0.8 [facility] Comment on above: Performed By: #### C BC ####[facility] Cfwtjnkbaf40[address] [place], [place] [address]Dr. Anjali Reagan Monocytes/100 WBC (Bld) 9.9 % Normal 1.7-12.0 [facility] Comment on above: Performed By: #### C BC ####[facility] Pvtmveucyz[address] [place], [place] [address]Dr. Anjali Reagan NEUT # 5.3 103/ul Normal 1.4-6.5 [facility] Comment on above: Performed By: #### C BC ####[facility] Nhsocqgdyx[address] [place], [place] [address]Dr. Anjali Reagan Neutrophils/100 WBC (Bld) 74.3 % Normal 43.0-75.0 [facility] Comment on above: Performed By: #### C BC ####[facility] Nftnzrbfkz575[address] [place], [place] [address]Dr. Anjali Reagan Platelet mean volume (Bld) [Entitic vol] 9.6 fL Normal 9.5-13.5 [facility] Comment on above: Performed By: #### C BC ####[facility] Cdavzxotfk7307 [place] [id number]. Anjali Reagan PLT 218 103/ul Normal 150-450 [facility] Comment on above: Performed By: #### C BC ####[facility] Njsaqliraz3113 [place], [place] [address]Vb. Biancaramona Reagan RBC 3.88 106/ul Critically low 4.70-6.10 [facility] Comment on above: Performed By: #### C BC ####[facility] Pjjqzgveuq7966 [place] [id number]. Anjali Reagan WBC 7.1 103/ul Normal 4.0-11.0 [facility] Comment on above: Performed By: #### C BC ####[facility] Nskzzgeaov0429 [place] [address]Dr. Anjali Reagan POINT OF CARE GLUCOSEon 01-31 Glucose [Mass/Vol] 219 mg/dL Critically high 74-106 [facility] Comment on above: Performed By: #### P OCGLUC ####[facility] Dznpscuali1605 [place] [address]Dr. Anjali Reagan Glucose [Mass/Vol] 136 mg/dL Critically high 74-106 [facility] Comment on above: Performed By: #### P OCGLUC ####[facility] Qgwhyzsvdy1880 [place] [id number]. Anjali Reagan Glucose [Mass/Vol] 119 mg/dL Critically high 74-106 [facility] Comment on above: Performed By: #### P OCGLUC ####[facility] Bynjtpxetx0931 [place] [phone]. Anjali Reagan PROF 14(COMP METB)on 021 Albumin [Mass/Vol] 2.8 g/dL Critically low 3.5-5.0 [facility] Comment on above: Performed By: #### C MP, BMP ####[facility] Qffqolvutv7002 [place] [address]Dr. Anjali Reagan Albumin/Globulin [Mass ratio] 0.7 {ratio} Normal [facility] Comment on above: Performed By: #### C MP, BMP ####[facility] Roiybmjnle5622 [place] [address]Dr. Anjali Reagan ALP [Catalytic activity/Vol] 109 U/L Normal 38-126 [facility] Comment on above: Performed By: #### C MP, BMP ####[facility] Vidkfukogy[address] [place], [place] [address]Dr. Anjali Reagan ALT [Catalytic activity/Vol] 23 U/L Normal 21-72 [facility] Comment on above: Performed By: #### C MP, BMP ####[facility] Okpxjantsc086[address] [place], [place] [address]Dr. Anjali Reagan AST [Catalytic activity/Vol] 24 U/L Normal 17-59 [facility] Comment on above: Performed By: #### C MP, BMP ####[facility] Ymywqibulw[address]24[address] [place], [place] [address]Dr. Anjali Reagan Bilirubin [Mass/Vol] 0.4 mg/dL Normal 0.2-1.3 [facility] Comment on above: Performed By: #### C MP, BMP ####[facility] Ahofehvhry311[address] [place], [place] [address]Dr. Anjali Reagan Globulin (S) [Mass/Vol] 4.1 g/dL Normal [facility] Comment on above: Performed By: #### C MP, BMP ####[facility] Zemaihidrj9[address] [place], [place] [address]Dr. Anjali Reagan Protein [Mass/Vol] 6.9 g/dL Normal 6.1-8.2 [facility] Comment on above: Performed By: #### C MP, BMP ####[facility] Fxkgeiazol90350[address] [place], [place] [address]Dr. Anjali Reagan PROF CHEM 8 (BAS METB)on Anion gap [Moles/Vol] 13.0 mmol/L Normal [facility] Comment on above: Performed By: #### C MP, BMP ####[facility] Ddmvuqfzmk075[address] [place], [place] [address]Dr. Anjali Reagan Calcium [Mass/Vol] 9.4 mg/dL Normal 8.4-10.2 [facility] Comment on above: Performed By: #### C ALEA, BMP ####[facility] Kfwitlykqe2707 [place] [address]Dr. Anjali Reagan Chloride [Moles/Vol] 104 mmol/L Normal 98-107 [facility] Comment on above: Performed By: #### C ALEA, BMP ####[facility] Jytftyjqos3792 [place] [address]Dr. Anjali Reagan CO2 [Moles/Vol] 27.7 mmol/L Normal 22.0-30.0 [facility] Comment on above: Performed By: #### C ALEA, BMP ####[facility] Wkfftjsiyf468[address] [place], [place] [address]Dr. Anjali Reagan Creatinine [Mass/Vol] 1.19 mg/dL Normal 0.66-1.25 [facility] Comment on above: Performed By: #### C ALEA, BMP ####[facility] Ulbuinnoxy217708 [address] [place], [place] [address]Dr. Anjali Reagan EGFR-AF SAMOAN >60 Normal >=60 [facility] Comment on above: Performed By: #### C ALEA, BMP ####[facility] Gbmgqurqlv55[address] [place], [place] [address]Dr. Anjali Reagan EGFR-NON AF SAMOAN >60 Normal >=60 [facility] Comment on above: Performed By: #### C ALEA, BMP ####[facility] Pugjbsnpgt29[address] [place], [place] [address]Dr. Anjali Reagan Glucose [Mass/Vol] 81 mg/dL Normal 74-106 [facility] Comment on above: Performed By: #### C ALEA, BMP ####[facility] Aqwkkdzfcx398[address] [place], [place] [address]Dr. Anjali Reagan Potassium [Moles/Vol] 4.1 mmol/L Normal 3.4-5.0 [facility] Comment on above: Performed By: #### C ALEA, BMP ####[facility] Jjazllapal5[address] [place], [place] [address]Dr. Anjali Reagan Sodium [Moles/Vol] 141 mmol/L Normal 137-145 [facility] Comment on above: Performed By: #### C ALEA, BMP ####[facility] Ewvxaqhzgo60[address] [place], [place] [address]Dr. Anjali Reagan Urea nitrogen [Mass/Vol] 41.0 mg/dL Critically high 9.0-20 .0 [facility] Comment on above: Performed By: #### C ALEA, BMP ####[facility] Ekxcgpynco4716[address] [place], [place] [address]Dr. Anjali Tez Urea nitrogen/Creatinine [Mass ratio] 34.4 mg/mg Normal [facility] Comment on above: Performed By: #### C ALEA, BMP ####[facility] Slomuqygpi739[address] [place], [place] [address]Dr. Anjali Tez CBC W MANUAL DIFFon 02-10-20 21 ANISOCYTOSIS SLIGHT Normal [facility] Comment on above: Performed By: #### C CORI ####[facility] Mthnvivudv7[address] [place], [place] [address]Dr. Anjali Tez ATYPICAL LYMPH # Normal [facility] Comment on above: Performed By: #### Uzair PERSAUD ####[facility] Fxcnlepesl[address] [place], [place] [address]Dr. Anjali Reagan ATYPICAL LYMPH % Normal [facility] Comment on above: Performed By: #### Uzair PERSAUD ####[facility] Swugsbxyoi099[address] [place], [place] [address]Dr. Anjali Reagan BAND # Normal 0.0-0.3 [facility] Comment on above: Performed By: #### C CORI ####[facility] Jewmuxykhv3516[address] [place], [place] [address]Dr. Anjali Reagan BAND % Normal 0-5 [facility] Comment on above: Performed By: #### C CORI ####[facility] Tfhefzzsea[address] [place], [place] [address]Dr. Anjali Reagan BASOM # 0.00 103/ul Normal 0.00-0.10 [facility] Comment on above: Performed By: #### C CORI ####[facility] Xpmqbxwpgn4407 [place] [id number]. Anjali Reagan BASOM % 0.0 % Critically low 0.2-2.0 [facility] Comment on above: Performed By: #### C BCMAN ####[facility] Yvbbgjvplj6664 [place], [place] [address]Zs. Anjali Reagan BLAST # Normal [facility] Comment on above: Performed By: #### C BCFIONA ####[facility] Oihnjpchqd6506 [place] [address]Dr. Anjali Reagan BLAST % Normal [facility] Comment on above: Performed By: #### C BCFIONA ####[facility] Qvpctpbjma3557 [place] [address]Dr. Anjali Reagan CORRECTED WBC Normal 4.0-11.0 [facility] Comment on above: Performed By: #### C CORI ####[facility] Oalgwmorzu6690 [place] [address]Dr. Anjali Reagan EOS # 0.00 103/ul Normal 0.00-0.70 [facility] Comment on above: Performed By: #### C BCFIONA ####[facility] Wigbikzbow6775 [place] [address]Dr. Anjali Reagan EOS% 0.0 % Critically low 0.9-7.0 [facility] Comment on above: Performed By: #### C CORI ####[facility] Lrwxyofuao5765 [place] [address]Dr. Anjali Reagan HCT 31.1 % Critically low 42.0-54.0 [facility] Comment on above: Performed By: #### C BCFIONA ####[facility] Lclxgkinyu1271 [place] [address]Dr. Anjali Reagan HGB 9.6 g/dl Critically low 14.0-18.0 [facility] Comment on above: Performed By: #### C BCFIONA ####[facility] Tuauysuvkl5477 [place] [address]Dr. Anjali Reagan LYMPHM # 0.73 103/ul Critically low 1.20-3.80 [facility] Comment on above: Performed By: #### C CORI ####[facility] Cqhllsmuek2846 [place] [address]Dr. Anjali Reagan LYMPHM% 7.0 % Critically low 20.5-60.0 [facility] Comment on above: Performed By: #### C CORI ####[facility] Mdphfwtkal7577 [place] [address]Dr. Anjali Reagan MCH 25.1 pg Critically low 25.9-34.0 [facility] Comment on above: Performed By: #### C CORI ####[facility] Muijmkmwkl2752 [place] [address]Dr. Anjali Reagan MCHC 30.9 g/dl Normal 29.9-35.2 [facility] Comment on above: Performed By: #### C CORI ####[facility] Ciqffllkut[address] [place], [place] [address]Dr. Anjali Reagan MCV 81.4 fL Normal 80.0-94.0 [facility] Comment on above: Performed By: #### C CORI ####[facility] Vpvshoovrh[address] [place], [place] [address]Dr. Anjali Reagan METAMYELOCYTE # Normal [facility] Comment on above: Performed By: #### C CORI ####[facility] Vmufbbhtdh8081 [place] [address]Dr. Anjali Reagan METAMYELOCYTE % Normal [facility] Comment on above: Performed By: #### C CORI ####[facility] Sgqyhcvlpd4426 [place] [address]Dr. Anjali Reagan MONOM# 0.31 103/ul Normal 0.30-0.80 [facility] Comment on above: Performed By: #### C CORI ####[facility] Kwvbpfhqrp2527 [place] [address]Dr. Anjali Reagan MONOM% 3.0 % Normal 1.7-12.0 [facility] Comment on above: Performed By: #### C CORI ####[facility] Fnlcciqxdj8207 [place] [address]Dr. Anjali Reagan MPV 9.9 fL Normal 9.5-13.5 [facility] Comment on above: Performed By: #### C CORI ####[facility] Injlmtrlwq4288 [place] [address]Dr. Anjali Reagan MYELOCYTE # Normal [facility] Comment on above: Performed By: #### C CORI ####[facility] Vnquklykfs1614 [place] [address]Dr. Anjali Reagan MYELOCYTE % Normal [facility] Comment on above: Performed By: #### C CORI ####[facility] Nyvbnqqxsn0645 [place] [address]Dr. Anjali Reagan NRBC Normal [facility] Comment on above: Performed By: #### C CORI ####[facility] Xhelfugwqu7821 [place] [id number]. Anjali Reagan OVALOCYTES SLIGHT Normal [facility] Comment on above: Performed By: #### C CORI ####[facility] Ajjnqwynrj5612 [place] [address]Dr. Anjali Reagan PLT 211 103/ul Normal 150-450 [facility] Comment on above: Performed By: #### C CORI ####[facility] Yegwrullun6007 [place] [address]Dr. Anjali Reagan POIKILOCYTOSIS SLIGHT Normal [facility] Comment on above: Performed By: #### C CORI ####[facility] Wyvbkymrof7608 [place] [address]Dr. Anjali Reagan RBC 3.82 106/ul Critically low 4.70-6.10 [facility] Comment on above: Performed By: #### C CORI ####[facility] Drejosmpre3311 [place] [address]Dr. Anjali Reagan RDW 18.4 % Critically high 11.0-15.0 [facility] Comment on above: Performed By: #### C CORI ####[facility] Jrgaixriyl504[address] [place], [place] [address]Dr. Anjali Reagan SEG # 9.36 103/ul Critically high 1.40-6.50 [facility] Comment on above: Performed By: #### C SAUMYAMAN ####[facility] Wcarwpllvv1643 [place] [address]Dr. Anjali Reagan SEG % 90.0 % Critically high 43.0-75.0 [facility] Comment on above: Performed By: #### C CORI ####[facility] Mcztwjkhbh7309 [place] [address]Dr. Anjali Reagan WBC 10.4 103/ul Normal 4.0-11.0 [facility] Comment on above: Performed By: #### C CORI ####[facility] Srwhqxbnyr1750 [place] [address]Dr. Anjali Reagan HEP B SURFACE ANTIGEN SCREEN on 02-09-2021 HBsAg Screen Negative Normal Negative [facility] Comment on above: Performed By: #### H BSANS ####[facility] Ljyajwvdjv5960 [place] [address]Dr. Anjali Reagan HEPATITIS C ANTIBODYon 02-09 Hep C Virus Ab <0.1 Normal 0.0-0.9 [facility] Comment on above: Result Comment: Nega tive: < 0.8 Indeterminate: 0.8 - 0.9 Positive: > 0.9 . The CDC recommends that a positive HCV antibody result be followed up with a HCV Nucleic Acid Amplification test (104352). Performed By: #### H CV ####[facility] Uszdkkfdsx9667 [place] [address]Dr. Anjali Reagan HIV 1 AND 2 WITH REFLEXon HIV Screen 4th Generation wRfx Non-Reactive Normal Non Reactive [facility] Comment on above: Performed By: #### H IV12 ####[facility] Uodagkkhrn1878 [place] [address]Dr. Anjali Reagan POINT OF CARE GLUCOSEon 01-31 Glucose [Mass/Vol] 170 mg/dL Critically high 74-106 [facility] Comment on above: Performed By: #### P OCGLUC ####[facility] Msjhfwtvtk2537 [place] [address]Dr. Anjali Tez Glucose [Mass/Vol] 265 mg/dL Critically high 74-106 [facility] Comment on above: Performed By: #### P OCGLUC ####[facility] Wayqteumcq5712 [place] [address]Dr. Anjali Reagan Glucose [Mass/Vol] 319 mg/dL Critically high 74-106 [facility] Comment on above: Performed By: #### P OCGLUC ####[facility] Stwvkqxvwp4567 [place] [address]Dr. Anjali Reagan PROF 14(COMP METB)on 021 Albumin [Mass/Vol] 2.8 g/dL Critically low 3.5-5.0 [facility] Comment on above: Performed By: #### C MP ####[facility] Rahhfrhzow2795 [place] [address]Dr. Anjali Reagan Albumin/Globulin [Mass ratio] 0.7 {ratio} Normal [facility] Comment on above: Performed By: #### C MP ####[facility] Pmermjssac0893 [place] [address]Dr. Biancaramona Reagan ALP [Catalytic activity/Vol] 117 U/L Normal 38-126 [facility] Comment on above: Performed By: #### C MP ####[facility] Hsqjtmokqi3687 [place] [address]Dr. Anjali Reagan ALT [Catalytic activity/Vol] 21 U/L Normal 21-72 [facility] Comment on above: Performed By: #### C MP ####[facility] Guoxttsdie3502 [place] [address]Dr. Anjali Reagan Anion gap [Moles/Vol] 13.0 mmol/L Normal [facility] Comment on above: Performed By: #### C MP ####[facility] Mvektmymbm8120 [place] [address]Dr. Anjali Reagan AST [Catalytic activity/Vol] 21 U/L Normal 17-59 [facility] Comment on above: Performed By: #### C MP ####[facility] Tohmzdeeol2315 [place] [address]Dr. Anjali Reagan Bilirubin [Mass/Vol] 0.5 mg/dL Normal 0.2-1.3 [facility] Comment on above: Performed By: #### C MP ####[facility] Mnqcgmpmqc9[address] [place], [place] [address]Dr. Anjali Reagan Calcium [Mass/Vol] 9.3 mg/dL Normal 8.4-10.2 [facility] Comment on above: Performed By: #### C MP ####[facility] Zwvzcsrtke[address] [place], [place] [address]Dr. Anjali Reagan Chloride [Moles/Vol] 100 mmol/L Normal 98-107 [facility] Comment on above: Performed By: #### C MP ####[facility] Rmxrfdewgt857[address] [place], [place] [address]Dr. Anjali Reagan CO2 [Moles/Vol] 27.5 mmol/L Normal 22.0-30.0 [facility] Comment on above: Performed By: #### C MP ####[facility] Ksripiknyf04[address] [place], [place] [address]Dr. Anjali Reagan Creatinine [Mass/Vol] 1.49 mg/dL Critically high 0.66-1.25 [facility] Comment on above: Performed By: #### C MP ####[facility] Ahcdnmarhh5[address] [place], [place] [address]Dr. Anjali Reagan EGFR-AF SAMOAN 58 mL/min/1.73m2 Critically low >=60 [facility] Comment on above: Performed By: #### C MP ####[facility] Dwcicwgrtq434[address] [place], [place] [address]Dr. Anjali Tez EGFR-NON AF SAMOAN 48 mL/min/1.73m2 Critically low >=60 [facility] Comment on above: Performed By: #### C MP ####[facility] Chjjrkytbl[address] [place], [place] [address]Dr. Anjali Tez Globulin (S) [Mass/Vol] 4.2 g/dL Normal T [facility] Comment on above: Performed By: #### C MP ####[facility] [address]tt[address] [place], [place] [address]Dr. Anjali Reagan Glucose [Mass/Vol] 276 mg/dL Critically high 74-106 T [facility] Comment on above: Performed By: #### C MP ####[facility] Kzbrmwuhhy6525 [place] [address]Dr. Anjali Reagan Potassium [Moles/Vol] 4.5 mmol/L Normal 3.4-5.0 [facility] Comment on above: Performed By: #### C MP ####[facility] Fsdbrfpgjt5983 [place] [address]Dr. Anjali Reagan Protein [Mass/Vol] 7.0 g/dL Normal 6.1-8.2 [facility] Comment on above: Performed By: #### C MP ####[facility] Rfxkjimhoj473[address] [place], [place] [address]Dr. Anjali Reagan Sodium [Moles/Vol] 136 mmol/L Critically low 137-[address] [facility] Comment on above: Performed By: #### C MP ####[facility] Vwaduuyzbr[address] [place], [place] [address]Dr. Anjali Reagan Urea nitrogen [Mass/Vol] 42.0 mg/dL Critically high 9.0-20 .0 [facility] Comment on above: Performed By: #### C MP ####[facility] Xrfvpfpmlo[address] [place], [place] [address]Dr. Anjali Reagan Urea nitrogen/Creatinine [Mass ratio] 28.2 mg/mg Normal [facility] Comment on above: Performed By: #### C MP ####[facility] Muixoxkfgh[address] [place] [address]Dr. Anjali Reagan RPR QUANTon 02-09-2021 Rapid Plasma Reagin, Quant Non-Reactive Normal NonRea<1:1 [facility] Comment on above: Performed By: #### R PRQ ####[facility] Lhupwgpzep[address] [place] [address]Dr. Anjali Reagan XR ANKLE RT 2Von 02-09-2021 XR ANKLE RT 2V Normal [facility] XR TIB_FIB RT 2Von 11-10-202 1 XR TIB_FIB RT 2V Normal [facility] CRPon 02-08-2021 CRP 3.2 mg/dL Critically high <=1.0 [facility] Comment on above: Performed By: #### C RP ####[facility] Folmwrepmg8109 [place] [id number]. Anjali Reagan CULTURE ANAEROBICon 02-09-20 21 CULTURE ANAEROBIC Specimen Comments: RIGHT FOOT IRRIGATION SWAB Culture Observations: NO GROWTH AT 72 HRS Normal [facility] Comment on above: Performed By: #### A NACX ####[facility] Gyajcfblix4181 [place] [id number]. Yilan Reagan CULTURE ANAEROBIC Specimen Comments: RIGHT LEG REAMINGS Culture Observations: NO GROWTH OF ANAEROBES AT 72 HOURS. Normal [facility] Comment on above: Performed By: #### A NACX ####[facility] Jqkxbwevxl[address] [place], [place] [address]Dr. Yilan Reagan CULTURE ANAEROBIC Culture Observations : NO GROWTH AT 72 HRS [facility] Comment on above: Performed By: #### A NACX ####[facility] Ngdsnxtltx[address] [place], [place] [address]Dr. Yilan Reagan CULTURE ANAEROBIC Specimen Comments: RIGHT TIBIA BONE Culture Observations: NO GROWTH AT 72 HRS [facility] Comment on above: Performed By: #### A NACX ####[facility] Lixynsshuy[address] [place], [place] [address]Dr. Yilan Reagan CULTURE ANAEROBIC Specimen Comments: RIGHT CALCANEOUS BONE Culture Observations: NO GROWTH OF ANAEROBES AT 72 HOURS. Normal [facility] Comment on above: Performed By: #### A NACX ####[facility] Clvvfrtnev9825 [place] [phone]. Yilan Reagan CULTURE ANAEROBIC Specimen Comments: RIGHT ANKLE ABSCESS Culture Observations: NO GROWTH AT 72 HRS [facility] Comment on above: Performed By: #### A NACX ####[facility] Mibxlxvsba5000 [place] [phone]. Biancalan Reaagn CULTURE OTHERon 02-08-2021 CULTURE OTHER Specimen Comments: RIGHT LEG REAMINGS Culture Observations: NORMAL SKIN ARELI. Normal [facility] Comment on above: Performed By: #### O THCX ####[facility] Fxaewyuric8890 [place], [place] [address]Ln. Yilan Reagan CULTURE OTHER Specimen Comments: RIGHT FOOT IRRIGATION SWAB Culture Observations: NO GROWTH AT 72 HRS [facility] Comment on above: Performed By: #### O THCX ####[facility] Rbqngzyybf4222 [place], [place] [address]Gc. Yilan Reagan CULTURE OTHER Specimen Comments: RIGHT CALCANEOUS BONE Culture Observations: NORMAL SKIN ARELI. Normal [facility] Comment on above: Performed By: #### O THCX ####[facility] Uuazdzjkcz4397 [place], [place] [address]Bl. Yilan Reagan CULTURE OTHER Specimen Comments: RIGHT TIBIA BONE Culture Observations: NO GROWTH AT 72 HRS [facility] Comment on above: Performed By: #### O THCX ####[facility] Tnerdrvhpr2712 [place] [id number]. Yilan Reagan CULTURE OTHER Specimen Comments: RIGHT TALUS BONE Culture Observations: NORMAL SKIN ARELI. Normal [facility] Comment on above: Performed By: #### O THCX ####[facility] Uym[address]wpeesa[address] [place], [place] [address]Dr. Yilan Reagan CULTURE OTHER Specimen Comments: RIGHT ANKLE ABSCESS Culture Observations: NO GROWTH AT 72 HRS [facility] Comment on above: Performed By: #### O THCX ####[facility] Lelyromjjj2343 [place] [id number]. Anjali Reagan GRAM STAINon 02-08-2021 COMMENTS NO ORGANISMS OBSERVED Normal [facility] Comment on above: Performed By: #### G STAIN ####[facility] Hrvgyhjfwm0422 [place] [phone]. Anjali Reagan DIPHTHEROIDS Normal [facility] Comment on above: Performed By: #### G STAIN ####[facility] Lhkpsihahe[address] [place], [place] [address]Dr. Anjali Reagan EPITHELIALS Normal [facility] Comment on above: Performed By: #### G STAIN ####[facility] Slnhrwpefv[address] [place], [place] [address]Dr. Anjali Reagan FUNGAL ELEMENTS Normal [facility] Comment on above: Performed By: #### G STAIN ####[facility] Vvrlmvlnny3674 [place] [address]Dr. Anjali Reagan GRAM NEG BACILLI Normal [facility] Comment on above: Performed By: #### G STAIN ####[facility] Jaiyqmqgsi4290 [place] [address]Dr. Anjali Reagan GRAM NEG DIPPLOCOCCI Normal [facility] Comment on above: Performed By: #### G STAIN ####[facility] Omkrnxtait9076 [place] [address]Dr. Anjali Reagan GRAM POS BACILLI Normal [facility] Comment on above: Performed By: #### G STAIN ####[facility] Ycoiitbtvg[address] [place], [place] [address]Dr. Anjali Reagan GRAM POSITIVE COCCI Normal [facility] Comment on above: Performed By: #### G STAIN ####[facility] Thosflqrfu326[address] [place], [place] [address]Dr. Anjali Reagan GRAM STAIN SOURCE RIGHT LEG REAMINGS Normal [facility] Comment on above: Performed By: #### G STAIN ####[facility] Bnkgatfdly[address] [place], [place] [address]Dr. Anjali Reagan GRAM STAIN SOURCE RIGHT FOOT POST IRRIGATION SWAB Normal [facility] Comment on above: Performed By: #### G STAIN ####[facility] Ujvlkpvmqi[address] [place], [place] [address]Dr. Anjali Reagan GS_DIPTH Normal [facility] Comment on above: Performed By: #### G STAIN ####[facility] Lhatqawvjd7290 [place] [address]Dr. Anjali Reagan WBC MODERATE Normal [facility] Comment on above: Performed By: #### G STAIN ####[facility] Ugbuuigxed794[address] [place], [place] [address]Dr. Anjali Reagan WBC NONE SEEN Normal [facility] Comment on above: Performed By: #### G STAIN ####[facility] Tcieuwbdxd025[address] [place], [place] [address]Dr. Anjali Reagan COMMENTS NO ORGANISMS OBSERVED Normal [facility] Comment on above: Performed By: #### G STAIN ####[facility] Jwjwlqrhwd2315 [place] [address]Dr. Anjali Reagan DIPHTHEROIDS Normal [facility] Comment on above: Performed By: #### G STAIN ####[facility] Opsngztuby4416 [place] [phone]. Anjali Reagan EPITHELIALS Normal [facility] Comment on above: Performed By: #### G STAIN ####[facility] Krpwheooha[address] [place] [address]Dr. Anjali Reagan FUNGAL ELEMENTS Normal [facility] Comment on above: Performed By: #### G STAIN ####[facility] Lswpimdhba[address] [place], [place] [address]Dr. Anjali Reagan GRAM NEG BACILLI Normal [facility] Comment on above: Performed By: #### G STAIN ####[facility] Lziyasuepk[address] [place], [place] [address]Dr. Anjali Reagan GRAM NEG DIPPLOCOCCI Normal [facility] Comment on above: Performed By: #### G STAIN ####[facility] Ocxhgfppqc9956 [place] [address]Dr. Anjali Reagan GRAM POS BACILLI Normal [facility] Comment on above: Performed By: #### G STAIN ####[facility] Ddnukqolzs6949 [place] [address]Dr. Anjali Reagan GRAM POSITIVE COCCI Normal [facility] Comment on above: Performed By: #### G STAIN ####[facility] Zzjbyegneo0304 [place] [address]Dr. Anjali Reagan GRAM STAIN SOURCE RIGHT TIBIA BONE Normal [facility] Comment on above: Performed By: #### G STAIN ####[facility] Gfgdbasrlt0632 [place] [address]Dr. Anjali Reagan GRAM STAIN SOURCE RIGHT CALCANEOUS BONE Normal [facility] Comment on above: Performed By: #### G STAIN ####[facility] Wfszdummfg0538 [place] [address]Dr. Anjali Reagan GRAM STAIN SOURCE RIGHT TALUS BONE Normal [facility] Comment on above: Performed By: #### G STAIN ####[facility] Uyotjranqg3170 [place] [phone]. Anjali Regaan GS_DIPTH Normal [facility] Comment on above: Performed By: #### G STAIN ####[facility] Grjbopkerr1130 [place] [address]Dr. Anjali Reagan WBC NONE SEEN Normal [facility] Comment on above: Performed By: #### G STAIN ####[facility] Byueqkdqvn6977 [place] [address]Dr. Anjali Reagan WBC FEW Normal [facility] Comment on above: Performed By: #### G STAIN ####[facility] Dqjtexadlz4710 [place] [address]Dr. Anjali Reagan COMMENTS NO ORGANISMS OBSERVED Normal [facility] Comment on above: Performed By: #### G STAIN ####[facility] Tnnfdzxwwo[address] [place], [place] [address]Dr. Anjali Reagan DIPHTHEROIDS Normal [facility] Comment on above: Performed By: #### G STAIN ####[facility] Lihvfmyomp[address] [place], [place] [address]Dr. Anjali Reagan EPITHELIALS Normal [facility] Comment on above: Performed By: #### G STAIN ####[facility] Lggoanehac[address] [place], [place] [address]Dr. Anjali Reagan FUNGAL ELEMENTS Normal [facility] Comment on above: Performed By: #### G STAIN ####[facility] [address]ae[address] [place], [place] [address]Dr. Anjali Reagan GRAM NEG BACILLI Normal [facility] Comment on above: Performed By: #### G STAIN ####[facility] Ywdrwkmqlb4686 [place] [address]Dr. Anjali Reagan GRAM NEG DIPPLOCOCCI Normal [facility] Comment on above: Performed By: #### G STAIN ####[facility] Xkrnqjxdbc5484 [place] [address]Dr. Anjali Reagan GRAM POS BACILLI Normal [facility] Comment on above: Performed By: #### G STAIN ####[facility] Ltcidycawz2823 [place] [address]Dr. Anjali Reagan GRAM POSITIVE COCCI Normal [facility] Comment on above: Performed By: #### G STAIN ####[facility] Cvmdrlgpfi7681 [place] [address]Dr. Anjali Reagan GRAM STAIN SOURCE RIGHT FOOT ABSCESS SWAB Normal [facility] Comment on above: Performed By: #### G STAIN ####[facility] Glivdysbkr4507 [place] [address]Dr. Anjali Reagan GS_DIPTH Normal [facility] Comment on above: Performed By: #### G STAIN ####[facility] Umylewoscc5589 [place] [address]Dr. Anjali Reagan WBC RARE [facility] Comment on above: Performed By: #### G STAIN ####[facility] Qhkytxayne[address] [place] [address]Dr. Anjali Reagan HIV 1/2 RAPID (EXPOSURE ONLY )on 02-08-2021 HIV AB Negative [facility] Comment on above: Performed By: #### R PDHIV ####[facility] Xomiixlvys6501 [place] [address]Dr. Anjali Reagan HIV AG Negative [facility] Comment on above: Performed By: #### R PDHIV ####[facility] Wqtdfyaift3953 [place] [address]Dr. Anjali Reagan INTERNAL CONTROLS Within Normal Limits Normal Wi thin Normal Limits [facility] Comment on above: Performed By: #### R PDHIV ####[facility] Lvdzkfjtsb4712 [place] [address]Dr. Anjali Reagan RAPID HIV INFO SEE BELOW Normal [facility] Comment on above: Result Comment: This test is used for the initial screening of the exposure source. Confirmation of all results will be obtained through reference lab testing. Performed By: #### R PDHIV ####[facility] Ogdpfifdby5948 [place] [address]Dr. Anjali Reagan POINT OF CARE GLUCOSEon 11-0 Glucose [Mass/Vol] 400 mg/dL Critically high 74-106 [facility] Comment on above: Performed By: #### P OCGLUC ####[facility] Sjooceogdb4108 [place] [phone]. Anjali Reagan Glucose [Mass/Vol] 373 mg/dL Critically high -106 [facility] Comment on above: Performed By: #### P OCGLUC ####[facility] Tuqgccjejv6069 [place] [address]Dr. Anjali Reagan Glucose [Mass/Vol] 159 mg/dL Critically high 74-106 [facility] Comment on above: Performed By: #### P OCGLUC ####[facility] Bzjlzxolpa7558 [place] [address]Dr. Anjali Reagan Glucose [Mass/Vol] 160 mg/dL Critically high -106 [facility] Comment on above: Performed By: #### P OCGLUC ####[facility] Psylucqgrr7975 [place] [address]Dr. Anjali Reagan [facility] SED RATE 51 mm/hr Critically high <=20 [facility] Comment on above: Performed By: #### S EDR ####[facility] Gdqdndlkuy9626 [place] [address]Dr. Anjali Reagan CBC W MANUAL DIFFon 02-06-20 21 ATYPICAL LYMPH # Normal [facility] Comment on above: Performed By: #### C BCMAN ####[facility] Oszfamkeae9[address] [place] [address]Dr. Anjali Reagan ATYPICAL LYMPH % Normal [facility] Comment on above: Performed By: #### C BCMAN ####[facility] Uxizkwkflb3511 [place] [address]Dr. Biancalan Reagan BAND # 0.2 103/ul Normal 0.0-0.3 [facility] Comment on above: Performed By: #### C BCMAN ####[facility] Ndefzmfqzf2231 [place] [address]Dr. Anjali Reagan BAND % 3 % Normal 0-5 [facility] Comment on above: Performed By: #### C BCMAN ####[facility] Jnvwqqrskt2753 [place] [address]Dr. Anjali Reagan BASOM # 0.07 103/ul Normal 0.00-0.10 [facility] Comment on above: Performed By: #### C BCMAN ####[facility] Rbrtfqwvwl0420 [place] [address]Dr. Anjali Reagan BASOM % 1.0 % Normal 0.2-2.0 [facility] Comment on above: Performed By: #### C BCMAN ####[facility] Lqfyqvgbmt7550 [place] [address]Dr. Anjali Reagan BLAST # Normal [facility] Comment on above: Performed By: #### C BCFIONA ####[facility] Hufdlpvzph7330 [place] [address]Dr. Anjali Reagan BLAST % Normal [facility] Comment on above: Performed By: #### C CORI ####[facility] Cosxxsyxga[address] [place], [place] [address]Dr. Anjali Reagan CORRECTED WBC Normal 4.0-11.0 [facility] Comment on above: Performed By: #### C CORI ####[facility] Uutveslvpe1817 [place] [address]Dr. Anjali Reagan EOS # 0.57 103/ul Normal 0.00-0.70 [facility] Comment on above: Performed By: #### C CORI ####[facility] Yaefxjngvl7877 [place] [address]Dr. Anjali Reagan EOS% 8.0 % Critically high 0.9-7.0 [facility] Comment on above: Performed By: #### C BCFIONA ####[facility] Bymuoeeftp7116 [place] [address]Dr. Anjali Reagan HCT 32.9 % Critically low 42.0-54.0 [facility] Comment on above: Performed By: #### C BCMAN ####[facility] Velgdncibm8462 [place] [address]Dr. Anjali Reagan HGB 10.2 g/dl Critically low 14.0-18.0 [facility] Comment on above: Performed By: #### C CORI ####[facility] Ebqbtxfhub4651 [place], [place] [address]Yx. Anjali Reagan LYMPHM # 0.78 103/ul Critically low 1.20-3.80 [facility] Comment on above: Performed By: #### C CORI ####[facility] Omwswvotys7723 [place] [address]Dr. Anjali Reagan LYMPHM% 11.0 % Critically low 20.5-60.0 [facility] Comment on above: Performed By: #### C CORI ####[facility] Wqxuhlrxsl4212 [place] [address]Dr. Anjali Reagan MCH 24.9 pg Critically low 25.9-34.0 [facility] Comment on above: Performed By: #### Uzair PERSAUD ####[facility] Qvbqcerarc4975 [place] [address]Dr. Anjali Reagan MCHC 31.0 g/dl Normal 29.9-35.2 [facility] Comment on above: Performed By: #### Uzair PERSAUD ####[facility] Hmhkfzkbqq9354 [place] [address]Dr. Anjali Reagan MCV 80.4 fL Normal 80.0-94.0 [facility] Comment on above: Performed By: #### Uzair PERSAUD ####[facility] Xtookgefax[address] [place], [place] [address]Dr. Anjali Reagan METAMYELOCYTE # Normal [facility] Comment on above: Performed By: #### Uzair PERSAUD ####[facility] Pbqzuqlqhq9695 [place] [address]Dr. Anjali Reagan METAMYELOCYTE % Normal [facility] Comment on above: Performed By: #### Uzair PERSAUD ####[facility] Apzbxkfect[address] [place], [place] [address]Dr. Anjali Reagan MONOM# 0.57 103/ul Normal 0.30-0.80 [facility] Comment on above: Performed By: #### Uzair PERSAUD ####[facility] Uritstkoat[address] [place], [place] [address]Dr. Anjali Reagan MONOM% 8.0 % Normal 1.7-12.0 [facility] Comment on above: Performed By: #### C CORI ####[facility] Dunryzdqmq4222 [place] [address]Dr. Anjali Tez MPV 9.2 fL Critically low 9.5-13.5 [facility] Comment on above: Performed By: #### C CORI ####[facility] Zioffxdwmv7320 [place] [address]Dr. Anjali Reagan MYELOCYTE # Normal [facility] Comment on above: Performed By: #### C CORI ####[facility] Vqsycprqdj2205 [place] [address]Dr. Anjali Reagan MYELOCYTE % Normal [facility] Comment on above: Performed By: #### C CORI ####[facility] Iljgwulbbi1393 [place] [address]Dr. Anjali Reagan NRBC Normal [facility] Comment on above: Performed By: #### C CORI ####[facility] Xgdthswyis0810 [place] [address]Dr. Biancaramona Reagan OVALOCYTES 1+ Normal [facility] Comment on above: Performed By: #### C CORI ####[facility] Pkdadpnlxc9377 [place] [address]Dr. Anjali Tez PLT 209 103/ul Normal 150-450 [facility] Comment on above: Performed By: #### C CORI ####[facility] Ihmuyoqkcj9699 [place] [address]Dr. Biancaramona Tez RBC 4.09 106/ul Critically low 4.70-6.10 [facility] Comment on above: Performed By: #### C CORI ####[facility] Mnnfjeoyao0107 [place] [address]Dr. Anjali Reagan RDW 18.2 % Critically high 11.0-15.0 [facility] Comment on above: Performed By: #### C CORI ####[facility] Ididxkfwaw5402 [place] [phone]. Anjali Reagan SEG # 4.90 103/ul Normal 1.40-6.50 [facility] Comment on above: Performed By: #### C SAUMYAFIONA ####[facility] Xfggpqumpq7880 [place], [place] [address]Sc. Anjali Reagan SEG % 69.0 % Normal 43.0-75.0 [facility] Comment on above: Performed By: #### C SAUMYAFIONA ####[facility] Izfoiftqzg6393 [place], [place] [address]Sy. Anjali Reagan WBC 7.1 103/ul Normal 4.0-11.0 [facility] Comment on above: Performed By: #### C SAUMYAFIONA ####[facility] Ayyomchdio5223 [place], [place] [address]Ay. Anjali Reagan CT ABD/PELVIS WO CONon 02-05 CT ABD/PELVIS WO CON Normal [facility]on SARS-CoV-2 (COVID-19) RNA MEREDITH+probe Ql (Unsp spec) Not detected Normal NOT DETECTED [facility] Comment on above: Result Comment: This test is not yet approved or cleared by the [place] FDA. When there are no FDA-approved or cleared tests available, and other criteria are met, FDA can make tests available under an emergency access mechanism called an Emergency Use Authorization (EUA). The EUA for this test is supported by the [place] of Health and Human Service's (HHS's) declaration [...] with SARS-CoV-2. Performed By: #### C VDTB ####[facility] Aaygkjhazs6079 [place], [place] [address]Pr. Anjali Reagan ER URINE PROFILEon 1 Bilirubin Ql (U) Negative Normal NEGATIVE [facility] Comment on above: Performed By: #### E RUR ####[facility] Axzoxllxof[address] [place], [place] [address]Dr. Anjali Reagan Clarity (U) CLEAR Normal CLEAR [facility] Comment on above: Performed By: #### E RUR ####[facility] Glbnmhfvza[address] [place], [place] [address]Dr. Anjali Reagan Color (U) LT. YELLOW Normal YELLOW [facility] Comment on above: Performed By: #### E RUR ####[facility] Msivlksmrg[address] [place], [place] [address]Dr. Biancaramona Reagan ERUAHD A micrscopic examination will be performed if indicated. Normal The [facility] [facility] Comment on above: Performed By: #### E RUR ####[facility] Qzubfqhqrf[address] [place], [place] [address]Dr. Anjali Reagan Glucose Ql (U) Negative Normal NEGATIVE [facility] Comment on above: Performed By: #### E RUR ####[facility] Gxdhonyxok[address] [place], [place] [address]Dr. Anjali Reagan Hemoglobin Ql (U) Negative Normal NEGATIVE [facility] Comment on above: Performed By: #### E RUR ####[facility] Vsettezysl[address] [place], [place] [address]Dr. Anjali Reagan Ketones Ql (U) Negative Normal NEGATIVE [facility] Comment on above: Performed By: #### E RUR ####[facility] Zftivbsyqj73[address] [place], [place] [address]Dr. Anjali Reagan LEUKOCYTES Negative Normal NEGATIVE [facility] Comment on above: Performed By: #### E RUR ####[facility] Dektwoxqxe176[address] [place], [place] [address]Dr. Biancaramona Tez Nitrite Ql (U) Negative Normal NEGATIVE [facility] Comment on above: Performed By: #### E RUR ####[facility] Lzznzqicgz473[address] [place], [place] [address]Dr. Biancaramona Reagan pH (U) 6.0 [pH] Normal 5-9 [facility] Comment on above: Performed By: #### E RUR ####[facility] [address]ev[address]kkj6[address] [place] [address]Dr. Anjali Reagan SPEC GRAVITY 1.015 Normal 1.005-<=1.0 25 [facility] Comment on above: Performed By: #### E RUR ####[facility] Lgthcgikrl0975 [place] [address]Dr. Anjali Reagan UA PROTEIN TRACE Normal NEGATIVE/ TRACE [facility] Comment on above: Performed By: #### E RUR ####[facility] Vkorqdfhci0526 [place] [address]Dr. Anjali Reagan UR MICRO IND NOT INDICATED Normal [facility] Comment on above: Performed By: #### E RUR ####[facility] Nvaenjstxo4998 [place] [address]Dr. Anjali Reagan Urobilinogen Qn (U) 0.2 {Geremias'U}/dL Normal 0.2 - 1. 0 [facility] Comment on above: Performed By: #### E RUR ####[facility] Ljtnulbput[address] [place], [place] [address]DrVeronica Reagan PROF 14(COMP METB)on 021 Albumin [Mass/Vol] 2.8 g/dL Critically low 3.5-5.0 [facility] Comment on above: Performed By: #### C MP ####[facility] Wrilayedri[address] [place], [place] [address]Dr. Anjali Reagan Albumin/Globulin [Mass ratio] 0.6 {ratio} Normal [facility] Comment on above: Performed By: #### C MP ####[facility] Vowbmxtrfj3874 [place] [address]Dr. Anjali Reagan ALP [Catalytic activity/Vol] 125 U/L Normal 38-126 [facility] Comment on above: Performed By: #### C MP ####[facility] Wasocsrbzf3083 [place] [address]Dr. Anjali Reagan ALT [Catalytic activity/Vol] 22 U/L Normal 21-72 [facility] Comment on above: Performed By: #### C MP ####[facility] Lutyrhuyfj3505 [place] [id number]. Anjali Reagan Anion gap [Moles/Vol] 13.1 mmol/L Normal Th e [facility] Comment on above: Performed By: #### C MP ####[facility] Acavmfdmez1244 [place] [id number]. Anjali Tez AST [Catalytic activity/Vol] 26 U/L Normal 17-59 [facility] Comment on above: Performed By: #### C MP ####[facility] Havevauhuq3279 [place] [id number]. Biancaramona Tez Bilirubin [Mass/Vol] 0.8 mg/dL Normal 0.2-1.3 [facility] Comment on above: Performed By: #### C MP ####[facility] Kiksmkjcab5854 [place] [address]Dr. Anjali Reagan Calcium [Mass/Vol] 9.2 mg/dL Normal 8.4-10.2 [facility] Comment on above: Performed By: #### C MP ####[facility] Cquejlsxds5400 [place] [id number]. Anjali Reagan Chloride [Moles/Vol] 98 mmol/L Normal 98-107 [facility] Comment on above: Performed By: #### C MP ####[facility] Qqkymstydi6636 [place] [phone]. Anjali Reagan CO2 [Moles/Vol] 28.7 mmol/L Normal 22.0-30.0 The [facility] Comment on above: Performed By: #### C MP ####[facility] Xrmznzzaoq7029 [place] [id number]. Anjali Reagan Creatinine [Mass/Vol] 1.62 mg/dL Critically high 0.66-1.25 [facility] Comment on above: Performed By: #### C MP ####[facility] Enptfdxqpi5269 [place] [address]Dr. Anjali Reagan EGFR-AF SAMOAN 52 mL/min/1.73m2 Critically low >=60 [facility] Comment on above: Performed By: #### C MP ####[facility] Lakhatwsky4933 [place] [address]Dr. Anjali Reagan EGFR-NON AF SAMOAN 43 mL/min/1.73m2 Critically low >=60 [facility] Comment on above: Performed By: #### C MP ####[facility] Qtoyqfzqdd9962 [place] [phone]. Anjali Reagan Globulin (S) [Mass/Vol] 4.6 g/dL Normal [facility] Comment on above: Performed By: #### C MP ####[facility] Mqxrjfwclb2865 [place] [phone]. Anjali Reagan Glucose [Mass/Vol] 192 mg/dL Critically high 74-106 [facility] Comment on above: Performed By: #### C MP ####[facility] Ajgofhxxjj5839 [place] [phone]. Anjali Reagan Potassium [Moles/Vol] 4.8 mmol/L Normal 3.4-5.0 [facility] Comment on above: Performed By: #### C MP ####[facility] Cpqrpmcvas0534 [place] [phone]. Anjali Reagan Protein [Mass/Vol] 7.4 g/dL Normal 6.1-8.2 [facility] Comment on above: Performed By: #### C MP ####[facility] Ofpsebpora3369 [place] [address]Dr. Anjali Reagan Sodium [Moles/Vol] 135 mmol/L Critically low 137-[address] [facility] Comment on above: Performed By: #### C MP ####[facility] Zgfyqsgrar8555 [place] [address]Dr. Anjali Reagan Urea nitrogen [Mass/Vol] 40.0 mg/dL Critically high 9.0-20 .0 [facility] Comment on above: Performed By: #### C MP ####[facility] Hbxmyfvzzi3656 [place] [id number]. Anjali Reagan Urea nitrogen/Creatinine [Mass ratio] 24.7 mg/mg Normal [facility] Comment on above: Performed By: #### C MP ####[facility] Bhvvilzzxq4179 [place] [address]Dr. Anjali Reagan PROF CHEM 8 (BAS METB)on Anion gap [Moles/Vol] 13.4 mmol/L Normal [facility] Comment on above: Performed By: #### B MP ####[facility] Visfxjnhrq354[address] [place], [place] [address]Dr. Anjali Reagan Calcium [Mass/Vol] 9.3 mg/dL Normal 8.4-10.2 [facility] Comment on above: Performed By: #### B MP ####[facility] Msvukxotmk345[address] [place], [place] [address]Dr. Anjali Reagan Chloride [Moles/Vol] 98 mmol/L Normal 98-107 [facility] Comment on above: Performed By: #### B MP ####[facility] Idibsuewpi975[address] [place], [place] [address]Dr. Anjali Reagan CO2 [Moles/Vol] 28.8 mmol/L Normal 22.0-30.0 [facility] Comment on above: Performed By: #### B MP ####[facility] Aqmlbmykbq268[address] [place], [place] [address]Dr. Anjali Reagan Creatinine [Mass/Vol] 1.72 mg/dL Critically high 0.66-1.25 [facility] Comment on above: Performed By: #### B MP ####[facility] Sulxbjkzwt[address] [place], [place] [address]Dr. Anjali Reagan EGFR-AF SAMOAN 49 mL/min/1.73m2 Critically low >=60 [facility] Comment on above: Performed By: #### B MP ####[facility] Sarjruiiig8[address] [place], [place] [address]Dr. Anjali Reagan EGFR-NON AF SAMOAN 40 mL/min/1.73m2 Critically low >=60 [facility] Comment on above: Performed By: #### B MP ####[facility] Owoehwtznp[address] [place], [place] [address]Dr. Anjali Reagan Glucose [Mass/Vol] 204 mg/dL Critically high 74-106 [facility] Comment on above: Performed By: #### B MP ####[facility] Gscxianzwl4074 [place] [address]Dr. Anjali Reagan Potassium [Moles/Vol] 4.2 mmol/L Normal 3.4-5.0 [facility] Comment on above: Performed By: #### B MP ####[facility] Vubkwnklpk2212 [place] [address]Dr. Anjali Tez Sodium [Moles/Vol] 136 mmol/L Critically low 137-145 [facility] Comment on above: Performed By: #### B MP ####[facility] Cyvnabvxrh8479 [place] [address]Dr. Anjali Reagan Urea nitrogen [Mass/Vol] 35.0 mg/dL Critically high 9.0-20 .0 [facility] Comment on above: Performed By: #### B MP ####[facility] Vhxfvnfmap1168 [place] [address]Dr. Anjali Tez Urea nitrogen/Creatinine [Mass ratio] 20.3 mg/mg Normal [facility] Comment on above: Performed By: #### B MP ####[facility] Zeewbqhwkl185[address] [place], [place] [address]Dr. Anjali Reagan CT ANKLE RT WO CONon 021 CT ANKLE RT WO CON Normal [facility] XR ANKLE RT MIN 3 VIEWSon XR ANKLE RT MIN 3 VIEWS Normal [facility] XR ANKLE RT MIN 3 VIEWSon XR ANKLE RT MIN 3 VIEWS Normal [facility] Otolaryngology Office/Clinic Noteon 01-19-2021 Otolaryngology Office/Clinic Note [...] Dr. Freed. Previous pathology by physician in [place] about 1 year ago. PMHx of multiple [...] 2. Basal (more content not included)... Normal [facility] BASIC METABOLIC PANEL W/O CA on 01-15-2021 Chloride [Moles/Vol] 98 mmol/L Normal 98-110 [facility] Comment on above: Order Comment: FASTI NG:YESFASTING: YES Performed By: #### 1 0165, 496, 905 #### [facility] [address], [address] [place] [address] [employer]: Juan Meraz MD CO2 [Moles/Vol] 26 mmol/L Normal 20-32 [facility] Comment on above: Order Comment: FASTI NG:YESFASTING: YES Performed By: #### 1 0165, 496, 905 #### [facility] [address], [address] [place] [address] [employer]: Juan Mearz MD Creatinine [Mass/Vol] 1.71 mg/dL High 0.70-1.[address] [facility] Comment on above: Order Comment: FASTI NG:YESFASTING: YES Result Comment: For patients >49 years of age, the reference limit for Creatinine is approximately 13% higher for people identified as -[place]. Performed By: #### 1 0165, 496, 905 #### [facility] [address], [address] [place] [address] [employer]: Juan Meraz MD eGFR NON-AFR. SAMOAN 42 mL/min/1.73m2 Low > OR = 60 [facility] Comment on above: Order Comment: FASTI NG:YESFASTING: YES Performed By: #### 1 0165, 496, 905 #### [facility] [address], [address] [place] [address] [employer]: Juan Meraz MD GFR/1.73 sq M.predicted among blacks MDRD (S/P/Bld) [Vol rate/Area] 48 mL/min/{1.73_m2} Low > OR = 60 [facility] Comment on above: Order Comment: FASTI NG:YESFASTING: YES Performed By: #### 1 0165, 496, 905 #### [facility] [place] [address] [place] [address] [employer]: Juan Meraz MD Glucose [Mass/Vol] 186 mg/dL High 65-99 [facility] Comment on above: Order Comment: FASTI NG:YESFASTING: YES Result Comment: Fasting reference interval For someone without known diabetes, a glucose value >125 mg/dL indicates that they may have diabetes and this should be confirmed with a follow-up test. Performed By: #### 1 0165, 496, 905 #### [facility] [place] [address] [employer]: Juan Meraz MD Potassium [Moles/Vol] 4.3 mmol/L Normal 3.5-5.3 [facility] Comment on above: Order Comment: FASTI NG:YESFASTING: YES Performed By: #### 1 0165, 496, 905 #### [facility] [place] [address] [employer]: Juan Meraz MD Sodium [Moles/Vol] 137 mmol/L Normal 135-146 [facility] Comment on above: Order Comment: FASTI NG:YESFASTING: YES Performed By: #### 1 0165, 496, 905 #### [facility] [place] [address] [employer]: Juan Meraz MD Urea nitrogen [Mass/Vol] 34 mg/dL High 7-25 [facility] Comment on above: Order Comment: FASTI NG:YESFASTING: YES Performed By: #### 1 0165, 496, 905 #### [facility] [place] [address] [employer]: Juan Meraz MD Urea nitrogen/Creatinine [Mass ratio] 20 mg/mg Normal 6-22 [facility] Comment on above: Order Comment: FASTI NG:YESFASTING: YES Performed By: #### 1 0165, 496, 905 #### [facility] [place] [address] [employer]: Juan Meraz MD CBC (INCLUDES DIFF/PLT)on Basophils (Bld) [#/Vol] 0.026 10*3/uL Normal 0-200 [facility] Comment on above: Performed By: #### 1 0165, 496, 905 #### [facility] [place] [address] [employer]: Juan Meraz MD Basophils/100 WBC (Bld) 0.3 % Normal [facility] Comment on above: Performed By: #### 1 0165, 496, 905 #### [facility] [place] [address] [employer]: Juan Meraz MD Eosinophils (Bld) [#/Vol] 0.202 10*3/uL Normal 15-500 [facility] Comment on above: Performed By: #### 1 0165, 496, 905 #### [facility] [place] [address] [employer]: Juan Meraz MD Eosinophils/100 WBC (Bld) 2.3 % Normal [facility] Comment on above: Performed By: #### 1 0165, 496, 905 #### [facility] [place] [address] [employer]: Juan Meraz MD Erythrocyte distribution width (RBC) [Ratio] 15.7 % High 11.0-15.0 [facility] Comment on above: Performed By: #### 1 0165, 496, 905 #### [facility] [place] [address] [employer]: Juan Meraz MD Hematocrit (Bld) [Volume fraction] 34.9 % Low 38.5-50.0 [facility] Comment on above: Performed By: #### 1 0165, 496, 905 #### [facility] [place] [address] [employer]: Juan Meraz MD Hemoglobin (Bld) [Mass/Vol] 10.9 g/dL Low 13.2-17.1 [facility] Comment on above: Performed By: #### 1 164, 496, 905 #### [facility] [place] [address] [employer]: Juan Meraz MD Lymphocytes (Bld) [#/Vol] 0.748 10*3/uL Low 850-3900 [facility] Comment on above: Performed By: #### 1 164, 496, 905 #### [facility] [place] [address] [employer]: Juan Meraz MD Lymphocytes/100 WBC (Bld) 8.5 % Normal [facility] Comment on above: Performed By: #### 1 164, 496, 905 #### [facility] [place] [address] [employer]: Juan Meraz MD MCH (RBC) [Entitic mass] 25.1 pg Low 27.0-33.0 [facility] Comment on above: Performed By: #### 1 164, 495, 905 #### [facility] [place] [address] [employer]: Juan Meraz MD MCHC (RBC) [Mass/Vol] 31.2 g/dL Low 32.0-36.[address] [facility] Comment on above: Performed By: #### 1 164, 49, 905 #### [facility] [place] [address] [employer]: Juan Meraz MD MCV (RBC) [Entitic vol] 80.4 fL Normal 80.0-100.0 [facility] Comment on above: Performed By: #### 1 164, 497, 905 #### [facility] [place] [address] [employer]: Juan Meraz MD Monocytes (Bld) [#/Vol] 0.889 10*3/uL Normal 200-950 [facility] Comment on above: Performed By: #### 1 0165, 496, 905 #### [facility] [place] [address] [employer]: Juan Meraz MD Monocytes/100 WBC (Bld) 10.1 % Normal [facility] Comment on above: Performed By: #### 1 0165, 496, 905 #### [facility] [place] [address] [employer]: Juan Meraz MD Neutrophils (Bld) [#/Vol] 6.934 10*3/uL Normal 3031-0291 [facility] Comment on above: Performed By: #### 1 0165, 496, 905 #### [facility] [place] [address] [employer]: Juan Meraz MD Neutrophils/100 WBC (Bld) 78.8 % Normal [facility] Comment on above: Performed By: #### 1 0165, 496, 905 #### [facility] [place] [address] [employer]: Juan Meraz MD Platelet mean volume (Bld) [Entitic vol] 9.9 fL Normal 7.5-12.5 [facility] Comment on above: Performed By: #### 1 0165, 496, 905 #### [facility] [place] [address] [employer]: Juan Meraz MD Platelets (Bld) [#/Vol] 353 10*3/uL Normal 140-400 [facility] Comment on above: Performed By: #### 1 0165, 496, 905 #### [facility] [place] [address] [employer]: Juan Meraz MD RBC (Bld) [#/Vol] 4.34 10*6/uL Normal 4.20-5.80 [facility] Comment on above: Performed By: #### 1 0165, 496, 905 #### [facility] [address], [address] [place] [address] [employer]: Juan Meraz MD WBC (Bld) [#/Vol] 8.8 10*3/uL Normal 3.8-10.8 [facility] Comment on above: Performed By: #### 1 0165, 496, 905 #### [facility] [address], [address] [place] [address] [employer]: Juan Meraz MD Otolaryngology Office/Clinic Noteon 01-14-2021 [...] oral caps (more content not included)... Normal [facility] Otolaryngology Office/Clinic Noteon 01-12-2021 Otolaryngology [...] Dr. Freed. Previous pathology by physician in [place] about 1 year ago. PMHx of multiple [...] separately bill (more content not included)... Normal [facility] Operative Reporton Operative Report Date: [...] Chirag Gutierrez DO 01/11/21 20:09 EDT Normal [facility] Operative Report Date: January 11, [...] Chirag Gutierrez DO 01/11/21 09:28 EDT Normal [facility] POC Glucose Randomon 021 Glucose [Mass/Vol] 211 mg/dL High 70-99 [facility] Comment on above: Performed By: #### C D:[id number] ####[address] [address] CoV2 Agon 01-10-2021 Employed in healthcare? Unknown Normal [facility] Comment on above: Performed By: #### C D:[id number] ####[address] [address] Group care resident? Unknown Normal [facility] Comment on above: Performed By: #### C D:[id number] ####[place] [id number] In ICU? No Normal [facility] Comment on above: Performed By: #### C D:[id number] ####[address] [address] status? Not Applicable Normal [facility] Comment on above: Performed By: #### C D:[id number] ####[address] [address] SARS-CoV-2 (COVID-19) RNA MEREDITH+probe Ql (Unsp spec) Normal Negative [facility] Comment on above: Result Comment: [...] Negative ADDITIONAL INFORMATION: Testing performed on the [employer]00 using the SARS-CoV-2 Antigen test. Results are for the identification of SARS-CoV-2 nucleocapsid antigen. The Edfa3lyS SARS-CoV-2 Antigen test can detect both viable [...] Administration?s Emergency Use Authorization. HCP Fact Sheet: https://www.fda.gov/media/396533/download Patient Fact Sheet: https://www.fda.gov/media/964122/download Performed By: #### C D:[id number] ####[place] [address] SARS-CoV-2 (COVID-19) RNA MEREDITH+probe Ql (Unsp spec) Unknown Normal [facility] Comment on above: Performed By: #### C D:[id number] ####[place] [address] Symptomatic as defined by CDC? Unknown Normal [facility] Comment on above: Performed By: #### C D:[id number] ####[place] [id number] BASIC METABOLIC PANELon 10-0 Calcium [Mass/Vol] 9.6 mg/dL Normal 8.6-10.3 [facility] Comment on above: Performed By: #### 1 0165, 323, 755 #### [facility] [address] [employer]: Juan Meraz MD Chloride [Moles/Vol] 100 mmol/L Normal 98-110 [facility] Comment on above: Performed By: #### 1 0165, 041, 444 #### [facility] [address] [employer]: Juan Meraz MD CO2 [Moles/Vol] 30 mmol/L Normal 20-32 [facility] Comment on above: Performed By: #### 1 0165, 491, 905 #### [facility] [place] [address] [employer]: Juan Meraz MD Creatinine [Mass/Vol] 1.67 mg/dL High 0.70-1.[address] [facility] Comment on above: Result Comment: For patients >49 years of age, the reference limit for Creatinine is approximately 13% higher for people identified as -[place]. Performed By: #### 1 0165, 494, 905 #### [facility] [place] [address] [employer]: Juan Meraz MD eGFR NON-AFR. SAMOAN 43 mL/min/1.73m2 Low > OR = 60 [facility] Comment on above: Performed By: #### 1 016, 49, 905 #### [facility] [place] [address] [employer]: Juan Meraz MD GFR/1.73 sq M.predicted among blacks MDRD (S/P/Bld) [Vol rate/Area] 50 mL/min/{1.73_m2} Low > OR = 60 [facility] Comment on above: Performed By: #### 1 016, 49, 905 #### [facility] [place] [address] [employer]: Juan Meraz MD Glucose [Mass/Vol] 124 mg/dL High 65-99 [facility] Comment on above: Result Comment: Fasting reference interval For someone without known diabetes, a glucose value between 100 and 125 mg/dL is consistent with prediabetes and should be confirmed with a follow-up test. Performed By: #### 1 0165, 493, 905 #### [facility] [place] [address] [employer]: Juan Meraz MD Potassium [Moles/Vol] 4.7 mmol/L Normal 3.5-5.[address] [facility] Comment on above: Performed By: #### 1 0165, 496, 905 #### [facility] [address], [address] [place] [address] [employer]: Juan Meraz MD Sodium [Moles/Vol] 138 mmol/L Normal 135-146 [facility] Comment on above: Performed By: #### 1 0165, 496, 905 #### [facility] [address], [address] [place] [address] [employer]: Juan Meraz MD Urea nitrogen [Mass/Vol] 40 mg/dL High 7-25 [facility] Comment on above: Performed By: #### 1 0165, 496, 905 #### [facility] [address], [address] [place] [address] [employer]: Juan Meraz MD Urea nitrogen/Creatinine [Mass ratio] 24 mg/mg High 6-22 [facility] Comment on above: Performed By: #### 1 0165, 496, 905 #### [facility] [address], [address] [place] [address] [employer]: Juan Meraz MD HEMOGLOBIN A1con 12-31-2020 HEMOGLOBIN [...] 1 0165, 496, 905 #### [facility] [address], [address] [place] [address] [employer]: Juan Meraz MD Provider Letteron 12-31-2020 Provider Letter [facility]; Facial Plastic Surgery [address] [place], [place] [address] P: [phone] F: [phone] Chirag Gutierrez DO, [facility] Re: Anai [id number] Date of Visit: 01/05/2021 ATTENTION MEDICAL RECORDS: We are requesting pathology report for biopsy of left ear done within the last 2 years for patient Anai Goodman 59. Thank you, ChiragEwa [facility] Provider Letter [facility]; Facial Plastic Surgery [address] [place], [place] [address] P: [phone] F: [phone] Chirag Gutierrez DO, [facility] Re: Anai [id number] Date of Visit: 01/05/2021 ATTENTION MEDICAL RECORDS: We are requesting pathology report for biopsy of left ear done within the last 2 years for patient Anai Goodman. Thank you, ChiragTyler [facility] HospitalcaesarWIOra [facility] Provider Letter [facility]; Facial Plastic Surgery [address] [place], [place] [address] P: [phone] F: [phone] Chirag Gutierrez DO[address] [address] Re: Anai Rex1955 Date of Visit: 01/05/2021 Patient is a mutual patient, referred to us by your office for lesion of his left ear. We are in need of his previous pathology report for this, he returns to our office for biopsy of this lesion on 01/05/21. We would appreciate if you could please fax over this information prior to 01/05/21. Thank you, [facility] URIC ACIDon 12-31-2020 Urate [Mass/Vol] 10.3 mg/dL High 4.0-8.0 [facility] Comment on above: Order Comment: FASTI NG:YES FASTING: YES Result Comment: Ther apeutic target for gout patients: <6.0 mg/dL Performed By: #### 1 [id number], [phone] [phone] #### [facility] [address], [address] [place] [address] [employer] Kiln Placer: Juan Meraz MD Provider Letteron 12-17-2020 Provider Letter Deon Brito [address] [place] [id number] Re: Anai Rdzrosalinewillievarun Date of Visit: 12/15/2020 Dear Deon Braxton, I am referring Anai to your office for care. Attached your will find my notes and impressions from our visit. Deon Braxton DO Re:Demetrivarun Anai 1955 Date of Visit: 12/15/2020 Dear Deon Braxton DO: I had the pleasure of evaluating patient, Anai Goodman, in the [facility] clinic on 12/15/2020. Attached you will [...] Gutierrez, DO [facility] [address] [address] Let me know if you have any questions or concerns. Sincerely, Tyesha Dunne Providers: The following document(s) were included in the letter: December 15, 2020 13:30:00 EDT - (12/15/2020) Office Visit Note Normal [facility] Otolaryngology Office/Clinic Noteon 12-15-2020 Otolaryngology [...] Dr. Freed. Previous pathology by physician in [place] about 1 year ago. PMHx of multiple [...] mL, 1 Refill(s), 12/18/20 14:00:00 EDT, [id number] Medical Decision Making Chronic conditions NOT treated [...] 5000 intl (more content not included)... Normal [facility] Otolaryngology Office/Clinic Note Chief Complaint [...] Dr. Freed. Previous pathology by physician in [place] about 1 year ago. PMHx of multiple [...] meal to (more content not included)... Normal [facility] XR ANKLE RT MIN 3 VIEWSon XR ANKLE RT MIN 3 VIEWS Normal [facility] XR FOOT RT MIN 3 VIEWSon XR FOOT RT MIN [address] [facility] XR FOOT RT MIN 3 VIEWSon XR FOOT RT MIN [address] [facility] XR FOOT RT MIN 3 VIEWSon XR FOOT RT MIN [address] [facility] Consultation Noteon 05-11-19 Consultation Note [id number]:127 Normal [facility] Vital Signs Date Time Vital Sign Value Performing Clinician Facility 04-12-2023 11:11-0500 Body height 182.9 cm Terry ESCOBEDO Work Phone: [facility] 04-12-2023 11:11-0500 Body mass index (BMI) [Ratio] 28.89 kg/m2 Terry ESCOBEDO Work Phone: [facility] 04-12-2023 11:11-0500 Body weight 96.62 kg [facility] [facility] 04-12-2023 11:11-0500 Diastolic blood pressure 74 mm[Hg] Terry ESCOBEDO Work Phone: [facility] 04-12-2023 11:11-0500 Heart rate 74 /min Terry ESCOBEDO Work Phone: [facility] 04-12-2023 11:11-0500 SaO2% (BldA) [Mass fraction] 97 % [facility] 04-12-2023 11:11-0500 Systolic blood pressure 126 mm[Hg] Terry ESCOBEDO Work Phone: [facility] 12-05-2022 13:00-0400 Body height 177.8 cm Ghanshyam Kaye Other [employer] Other 12-05-2022 13:00-0400 Diastolic blood pressure 70 mm[Hg] Ghanshyam Kaye Other [employer] Other 12-05-2022 13:00-0400 SaO2% (BldA) [Mass fraction] 97 % Ghanshyam Kaye Other [employer] Other 12-05-2022 13:00-0400 Systolic blood pressure 110 mm[Hg] Ghanshyam Kaye Other [employer] Other 10-05-2022 10:00-0400 Body height 177.8 cm Dung Serna Other [employer] Other 10-05-2022 10:00-0400 Body mass index (BMI) [Ratio] 31.85 kg/m2 Dung Serna Other [employer] Other 10-05-2022 10:00-0400 Body weight 100.7 kg Dung Serna Other [employer] Other 10-05-2022 10:00-0400 Diastolic blood pressure 70 mm[Hg] Dung Serna Other [employer] Other 10-05-2022 10:00-0400 Systolic blood pressure 118 mm[Hg] Dung Serna Other [employer] Other 06-02-2022 11:00-0500 Body height 177.8 cm Reddy Brandt Other [employer] Other 06-02-2022 11:00-0500 Body mass index (BMI) [Ratio] 30.13 kg/m2 Reddy Brandt Other [employer] Other 06-02-2022 11:00-0500 Body weight 95.26 kg Reddy Brandt Other [employer] Other 03-15-2022 13:45-0500 Body height 177.8 cm Reddy Brandt Other [employer] Other 03-15-2022 13:45-0500 Body mass index (BMI) [Ratio] 30.85 kg/m2 Reddy Brandt Other [employer] Other 03-15-2022 13:45-0500 Body weight 97.52 kg Reddy Brandt Other [employer] Other 02-07-2022 14:00-0500 Body height 177.8 cm Ghanshyam Kaye Other [employer] Other 02-07-2022 14:00-0500 Body mass index (BMI) [Ratio] 30.85 kg/m2 Ghanshyam Kaye Other [employer] Other 02-07-2022 14:00-0500 Body weight 97.52 kg Ghanshyam Kaye Other [employer] Other 02-07-2022 14:00-0500 Diastolic blood pressure 72 mm[Hg] Ghanshyam Kaye Other [employer] Other 02-07-2022 14:00-0500 SaO2% (BldA) [Mass fraction] 98 % Ghanshyam Kaye Other [employer] Other 02-07-2022 14:00-0500 Systolic blood pressure 118 mm[Hg] Ghanshyam Kaey Other [employer] Other 11-29-2021 14:35-0400 Diastolic blood pressure 78 mm[Hg] DO Deon Cordovahas Work Phone: [facility] 11-29-2021 14:35-0400 Heart rate 75 /min DO Deon Tashahas Work Phone: [facility] 11-29-2021 14:35-0400 Respiratory rate 16 /min DO Deon Cordovahas Work Phone: [facility] 11-29-2021 14:35-0400 SaO2% (BldA) [Mass fraction] 95 % DO Deon Cordovahas Work Phone: [facility] 11-29-2021 14:35-0400 Systolic blood pressure 123 mm[Hg] DO Deon Cordovahas Work Phone: [facility] 11-29-2021 13:39-0400 Inhaled oxygen flow rate 8 L/min DO Deon Cordovahas Work Phone: [facility] 11-29-2021 13:24-0400 Body temperature 98.5 [degF] DO Deon Cordovahas Work Phone: [facility] 11-29-2021 12:10-0400 Body height 182.88 cm DO Deon Cordovahas Work Phone: [facility] 11-29-2021 12:10-0400 Body mass index (BMI) [Ratio] 30.5 kg/m2 DO Deon Cordovahas Work Phone: [facility] 11-29-2021 12:10-0400 Body weight 102.05 kg DO Deon Cordovahas Work Phone: [facility] 11-03-2021 10:41-0400 Diastolic blood pressure 66 mm[Hg] DO Deon Tashahas Work Phone: [facility] 11-03-2021 10:41-0400 Heart rate 78 /min DO Deon Cordovahas Work Phone: [facility] 11-03-2021 10:41-0400 Respiratory rate 16 /min DO Deon Cordovahas Work Phone: [facility] 11-03-2021 10:41-0400 SaO2% (BldA) [Mass fraction] 97 % DO Deon Cordovahas Work Phone: [facility] 11-03-2021 10:41-0400 Systolic blood pressure 121 mm[Hg] DO Deon Cordovahas Work Phone: [facility] 11-03-2021 09:41-0400 Body temperature 98 [degF] DO Deon Ramoss Work Phone: [facility] 11-03-2021 09:11-0400 Inhaled oxygen flow rate 8 L/min DO Deon Cordovahas Work Phone: [facility] 11-03-2021 07:37-0400 Body height 182.88 cm DO Deon Ramoss Work Phone: [facility] 11-03-2021 07:37-0400 Body mass index (BMI) [Ratio] 30.5 kg/m2 DO Deon Ramoss Work Phone: [facility] 11-03-2021 07:37-0400 Body weight 102.05 kg DO Deon Ramoss Work Phone: [facility] 11-01-2021 18:03-0400 Diastolic blood pressure 69 mm[Hg] DO Deon Rmaoss Work Phone: [facility] 11-01-2021 18:03-0400 Heart rate 71 /min DO Deon Cordovahas Work Phone: [facility] 11-01-2021 18:03-0400 Respiratory rate 16 /min DO Deon Cordovahas Work Phone: [facility] 11-01-2021 18:03-0400 SaO2% (BldA) [Mass fraction] 99 % DO Deon Cordovahas Work Phone: [facility] 11-01-2021 18:03-0400 Systolic blood pressure 124 mm[Hg] DO Deon Yuhas Work Phone: [facility] 11-01-2021 16:21-0400 Body height 182.88 cm DO Deon Yuhas Work Phone: [facility] 11-01-2021 16:21-0400 Body temperature 98 [degF] DO Deon Yuhas Work Phone: [facility] 11-01-2021 16:21-0400 Body weight 102.05 kg DO Deon Yuhas Work Phone: [facility] 10-31-2021 10:30-0400 Body height 177.8 cm Reddy Karly Other [facility] [employer] Other 10-27-2021 05:00-0400 Body temperature 98.6 [degF] DO Deon Cordovahas Work Phone: [facility] 10-27-2021 05:00-0400 Diastolic blood pressure 72 mm[Hg] DO Deon Tashahas Work Phone: [facility] 10-27-2021 05:00-0400 Heart rate 70 /min DO Deon Tashahas Work Phone: [facility] 10-27-2021 05:00-0400 Respiratory rate 16 /min DO Deon Cordovahas Work Phone: [facility] 10-27-2021 05:00-0400 SaO2% (BldA) [Mass fraction] 98 % DO Deon Yuhas Work Phone: [facility] 10-27-2021 05:00-0400 Systolic blood pressure 132 mm[Hg] DO Deon Yuhas Work Phone: [facility] 10-24-2021 12:00-0400 Body height 182.88 cm DO Deon Yuhas Work Phone: [facility] 10-23-2021 05:26-0400 Body weight 70.9 kg DO Deon Tashahas Work Phone: [facility] 10-22-2021 04:14-0400 Inhaled oxygen concentration 21 % DO Deon Yuhas Work Phone: [facility] 10-21-2021 12:00-0400 Body temperature 98.1 [degF] DO Deon Tashahas Work Phone: [facility] 10-21-2021 12:00-0400 Diastolic blood pressure 73 mm[Hg] DO Deon Tashahas Work Phone: [facility] 10-21-2021 12:00-0400 Heart rate 76 /min DO Deon Tashahas Work Phone: [facility] 10-21-2021 12:00-0400 Respiratory rate 18 /min DO Deon Cordovahas Work Phone: [facility] 10-21-2021 12:00-0400 SaO2% (BldA) [Mass fraction] 95 % DO Deon Cordovahas Work Phone: [facility] 10-21-2021 12:00-0400 Systolic blood pressure 128 mm[Hg] DO Deon Tashahas Work Phone: [facility] 10-21-2021 06:00-0400 Body weight 99.9 kg DO Deon Cordovahas Work Phone: [facility] 10-21-2021 02:05-0400 Inhaled oxygen concentration 21 % DO Deon Tashahas Work Phone: [facility] 10-19-2021 11:00-0400 Body height 182.88 cm DO Deon Yuhas Work Phone: [facility] 10-18-2021 15:37-0400 Inhaled oxygen flow rate 6 L/min DO Deon Tashahas Work Phone: [facility] 10-18-2021 13:19-0400 Body mass index (BMI) [Ratio] 29.8 kg/m2 DO Deon Braxton Work Phone: [facility] 10-12-2021 10:00-0400 Body height 177.8 cm Reddy Karly Other [employer] Other 10-12-2021 10:00-0400 Body mass index (BMI) [Ratio] 32.28 kg/m2 Reddy Karly Other [employer] Other 10-12-2021 10:00-0400 Body weight 102.06 kg Reddy Karly Other [employer] Other 10-06-2021 14:15-0400 Body height 177.8 cm Pako Aguilar Other [employer] Other 10-06-2021 14:15-0400 Body mass index (BMI) [Ratio] 32.28 kg/m2 Pako Aguilar Other [employer] Other 10-06-2021 14:15-0400 Body temperature 97.3 [degF] Pako Aguilar Other [employer] Other 10-06-2021 14:15-0400 Body weight 102.06 kg Pako Aguilar Other [employer] Other 10-06-2021 14:15-0400 Diastolic blood pressure 73 mm[Hg] Pako Aguilar Other [employer] Other 10-06-2021 14:15-0400 Systolic blood pressure 127 mm[Hg] Pako Aguilar Other [employer] Other 09-08-2021 15:30-0400 Body height 177.8 cm Pako Aguilar Other [employer] Other 09-08-2021 15:30-0400 Body temperature 98.1 [degF] Pako Aguilar Other [employer] Other 09-08-2021 15:30-0400 Diastolic blood pressure 73 mm[Hg] Pako Aguilar Other [employer] Other 09-08-2021 15:30-0400 Systolic blood pressure 149 mm[Hg] Pako Aguilar Other [employer] Other Encounters Encounter Date Encounter Type Care Provider Facility Start: 08-02-2023 End: 08-03-2023 ambulatory [facility] Start: 08-02-2023 End: 08-02-2023 ambulatory [facility] Start: 08-01-2023 End: 08-01-2023 ambulatory ZOEY A ADRYAN Not Available Start: 07-11-2023 End: 07-11-2023 ambulatory DEBI H TIMMIS Not Available Start: 07-03-2023 End: 07-03-2023 ambulatory DEBI H TIMMIS Not Available Start: 06-27-2023 End: 06-27-2023 ambulatory ZOEY A ADRYAN Not Available Start: 06-01-2023 Refill Deon Walker O Work Phone: [facility] Comment on above: Sarcoidosis with gra nulomatous hepatitis Start: 06-01-2023 Refill Deon Braxton D O Work Phone: [facility] Comment on above: 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, with long-term current use of insulin ([facility]) Start: 05-12-2023 Refill Deon Braxton D O Work Phone: [facility] Comment on above: Pure hypercholestero lemia Med Refill Start: 04-19-2023 End: 04-19-2023 ambulatory Salina Lee Facility:[facility] Start: 04-19-2023 End: 04-19-2023 ambulatory DO Deon Braxton Work Phone: [facility] Work Phone: Start: 04-19-2023 End: 04-19-2023 Departed Referred DO Deon Braxton Work Phone: [facility] Start: 04-13-2023 Refill Kaylene Peter CMA [facility] Comment on above: 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, with long-term current use of insulin ([facility]) Start: 04-12-2023 End: 04-12-2023 ambulatory TERRY LOCK [facility] Start: 04-12-2023 Encounter for prepro cedural cardiovascular examination TERRY LOCK [facility] Start: 04-12-2023 End: 04-12-2023 Office outpatient visit 25 minutes Terry Lock RESEARCH AND DEVELOPMENT DIRECTOR-ROCKET ENGINE MECHANIC Work Phone: [facility] Comment on above: Preop cardiovascular exam (Primary Dx); Coronary artery disease involving lime coronary artery of lime heart without angina pectoris; Ischemic cardiomyopathy; Chronic systolic congestive heart failure ([facility]); Apical mural thrombus; Essential (primary) hypertension; Cardiac defibrillator in place- [employer]; Mixed hyperlipidemia Start: 04-12-2023 End: 04-12-2023 Patient encounter status Terry Lock RESEARCH AND DEVELOPMENT DIRECTOR-ROCKET ENGINE MECHANIC Work Phone: [facility] [employer] Work Phone: Start: 04-05-2023 End: 04-06-2023 ambulatory YOVANNY CALHOUN [facility] Start: 04-03-2023 End: 04-03-2023 ambulatory Dung Serna Other [facility] [employer] Other Start: 04-03-2023 Telephone encounter Dung Serna [facility] Start: 03-22-2023 End: 03-23-2023 ambulatory [facility] Start: 03-22-2023 End: 03-22-2023 ambulatory YOVANNY CALHOUN Not Available Start: 03-22-2023 End: 03-22-2023 ambulatory YOVANNY CALHOUN Not Available Start: 03-22-2023 End: 03-22-2023 ambulatory [facility] Start: 03-07-2023 End: 03-07-2023 ambulatory ZOEY CORNELIUS Not Available Start: 01-11-2023 End: 01-11-2023 ambulatory Ghanshyam Kaye Other [employer] Other Start: 01-11-2023 Telephone encounter Ghanshyam Vargas [facility] Start: 12-05-2022 End: 12-05-2022 ambulatory Ghanshyam Shermaney Other [employer] Other Start: 12-05-2022 Office outpatient vi sit 15 minutes Ghanshyam Kaye [facility] Start: 10-05-2022 Office outpatient ne w 30 minutes Dung Serna [facility] Start: 10-05-2022 End: 10-05-2022 ambulatory [facility] [employer] Other Start: 08-02-2022 End: 08-02-2022 ambulatory Reddy Brandt Other [employer] Other Start: 08-02-2022 Office outpatient vi sit 15 minutes Reddy Brandt [facility] Start: 06-02-2022 End: 06-02-2022 ambulatory Reddy Brandt Other [employer] Other Start: 06-02-2022 Postop follow up vis it related to original px Reddy Brandt [facility] Start: 05-12-2022 End: 05-12-2022 ambulatory Reddy Brandt Other [employer] Other Start: 05-12-2022 Telephone encounter Reddy MOE G [facility] Start: 05-03-2022 End: 05-03-2022 ambulatory DO Deon Braxton Work Phone: [facility] Work Phone: Start: 05-03-2022 End: 05-03-2022 Patient encounter procedure DO Deon Braxton Work Phone: [facility]-Patient [facility] [address] Start: 04-28-2022 End: 04-28-2022 ambulatory Reddy Brandt Other [employer] Other Start: 04-28-2022 Office outpatient vi sit 15 minutes Reddy Brandt [facility] Start: 04-17-2022 End: 04-17-2022 ambulatory Reddy Brandt Other [employer] Other Start: 04-17-2022 Telephone encounter Reddy MOE G [facility] Start: 04-12-2022 End: 04-12-2022 ambulatory Reddy Brandt Other [employer] Other Start: 04-12-2022 Postop follow up vis it related to original px Reddy Brandt [facility] Start: 03-15-2022 End: 03-15-2022 ambulatory Reddy Brandt Other [employer] Other Start: 03-15-2022 Office outpatient vi sit 15 minutes Reddy Brandt [facility] Start: 02-07-2022 End: 02-07-2022 ambulatory Ghanshyam Kaye Other [employer] Other Start: 02-07-2022 Office outpatient vi sit 15 minutes Ghanshyam Kaye [facility] Start: 02-03-2022 End: 02-03-2022 ambulatory Reddy Brandt Other [employer] Other Start: 02-03-2022 Postop follow up vis it related to original px Reddy Karly [facility] Start: 01-24-2022 End: 01-24-2022 ambulatory Reddy Meehanley Other [employer] Other Start: 01-24-2022 Telephone encounter Reddy Gil [facility] Start: 01-20-2022 End: 01-20-2022 ambulatory Reddy Meehanley Other [employer] Other Start: 01-20-2022 Postop follow up vis it related to original px Reddy Karly [facility] Start: 01-16-2022 End: 01-16-2022 ambulatory Reddy Brandt Other [employer] Other Start: 01-16-2022 Telephone encounter Reddy Gil Mail Processing Equipment Mechanic Start: 01-06-2022 End: 01-06-2022 ambulatory Reddy Brandt Other [employer] Other Start: 01-06-2022 Postop follow up vis it related to original px Reddy Karly [facility] Start: 12-23-2021 End: 12-23-2021 ambulatory Reddy Brandt Other [employer] Other Start: 12-23-2021 Postop follow up vis it related to original px Reddy Karly [facility] Start: 12-20-2021 End: 12-20-2021 Discharged Recurring DO Deon Braxton Work Phone: [facility]-Infusion Therapy - O/P Start: 12-14-2021 End: 12-14-2021 ambulatory Reddy Brandt Other [employer] Other Start: 12-14-2021 Postop follow up vis it related to original px Reddy Karly [facility] Start: 12-12-2021 End: 12-12-2021 ambulatory Reddy Brandt Other [employer] Other Start: 12-12-2021 Telephone encounter Reddy Brandt ABHI G [facility] Start: 12-09-2021 End: 12-09-2021 ambulatory Reddy Brandt Other [employer] Other Start: 12-09-2021 Postop follow up vis it related to original px Reddy Brandt [facility] Start: 11-29-2021 End: 11-29-2021 Evaluation and management of inpatient DO Deon Tashadonna Work Phone: [address] Start: 11-29-2021 End: 11-29-2021 Admission to same day surgery center DO Deon [facility]adonna [facility] [place] Start: 11-28-2021 End: 11-28-2021 ambulatory Reddybryan Brandt Other [facility] [employer] Other Start: 11-28-2021 Postop follow up vis it related to original px Reddy Brandt [facility] Start: 11-21-2021 End: 11-21-2021 ambulatory Reddy Brandt Other [employer] Other Start: 11-21-2021 Telephone encounter Reddy MOE G [facility] Start: 11-03-2021 End: 11-03-2021 Admission to same day surgery center DO Deon Braxton [facility] [place] Start: 11-02-2021 End: 11-02-2021 ambulatory Reddy Brandt Other [employer] Other Start: 11-02-2021 Postop follow up vis it related to original px Reddy Brandt [facility] Start: 11-02-2021 End: 11-02-2021 Patient encounter procedure DO Deon Braxton Work Phone: [facility]-Pre-Surgical Testing Start: 11-01-2021 End: 11-01-2021 Emergency department patient visit DO Deon Braxton Work Phone: [facility]-Emergency Room Start: 11-01-2021 End: 11-01-2021 ambulatory Reddy Brandt Other [employer] Other Start: 11-01-2021 Telephone encounter Reddy Brandt [facility] Start: 10-31-2021 End: 10-31-2021 ambulatory Reddy Brandt Other [employer] Other Start: 10-31-2021 Postop follow up vis it related to original px Reddy Brandt [facility] Start: 10-21-2021 End: 10-27-2021 Evaluation and management of inpatient DO Deon Braxton Work Phone: [facility] [place] [facility] Start: 10-18-2021 End: 10-21-2021 Evaluation and management of inpatient DO Deon Braxton Work Phone: [facility] Start: 10-14-2021 End: 10-14-2021 Patient encounter procedure DO Deon Braxton Work Phone: [facility]-Pre-Surgical Testing Start: 10-12-2021 End: 10-12-2021 ambulatory Reddy Brandt Other [employer] Other Start: 10-12-2021 Office outpatient vi sit 25 minutes Reddy Brandt [facility] Start: 10-10-2021 End: 10-10-2021 Patient encounter procedure DO Deon Ramoss Work Phone: [facility]-MRI [facility] [place] Start: 10-06-2021 End: 10-06-2021 Patient encounter procedure DO Deon Braxton Work Phone: [facility]-Lab [facility] [place] Start: 10-06-2021 End: 10-06-2021 ambulatory Reddy Brandt Other [employer] Other Start: 10-06-2021 Office outpatient vi sit 25 minutes Pako Aguilar [facility] Start: 10-06-2021 Telephone encounter Reddy [facility] Start: 09-29-2021 End: 09-29-2021 Patient encounter procedure DO Deon Braxton Work Phone: [facility]-Pacemaker Check Start: 09-26-2021 End: 09-26-2021 ambulatory Reddy Brandt Other [employer] Other Start: 09-26-2021 [facility] Start: 09-21-2021 End: 09-21-2021 Patient encounter procedure DO Deon Braxton Work Phone: [facility] Start: 09-21-2021 ambulatory SALINA LEE Faci lity:[facility] Start: 09-09-2021 End: 09-10-[address] DEON BRAXTON Facility:[facility] Start: 09-09-2021 End: 09-10-2021 ambulatory SALINA LEE Facility:[facility] Start: 09-08-2021 End: 09-08-2021 ambulatory Pako Aguilar Other [employer] Other Start: 09-08-2021 Office outpatient vi sit [...] [place] Facility:[facility] Start: 04-14-2021 End: 04-15-2021 ambulatory BALJEET LEONG Facility:[facility] Start: 04-11-2021 End: 04-12-2021 ambulatory BALJEET [...] LEE Facility:[facility] Start: 02-28-2021 ambulatory DEON Ho lity:[facility] Start: 02-23-2021 End: 02-24-2021 ambulatory SALINA LEE Facility:[facility] Start: 02-22-2021 ambulatory DEON Ho lity:[facility] Start: 02-17-2021 End: 02-18-2021 ambulatory SALINA LEE Facility:[facility] Start: 02-09-2021 Encounter for prepro cedural laboratory examination SALINA LEE [facility] Start: 02-08-2021 End: 02-12-2021 Evaluation and [...] Start: 01-11-2021 End: 01-11-2021 ambulatory DEON BRAXTON Facility:[facility] Start: 01-10-2021 End: 01-11-2021 ambulatory DEON BRAXTON Facility:[facility] Start: 12-08-2020 End: 12-09-[address] DEON BRAXTON Facility:[facility] Start: 12-03-2020 End: 12-04-[address] DEON BRAXTON Facility:[facility] Start: 11-29-2020 End: 11-30-2020 ambulatory SALINA Walker [facility] Facility:[facility] Start: 11-25-2020 End: 11-26-2020 ambulatory [facility] [facility] Facility:H1 Start: 11-22-2020 End: 11-23-2020 ambulatory BALJEET LEONG Facility:H1 Start: 11-18-2020 End: 11-19-2020 ambulatory BALJEET LEONG Facility:H1 Start: 11-11-2020 End: 11-12-2020 ambulatory BALJEET LEONG Facility:H1 Start: 11-04-2020 End: 11-05-2020 ambulatory SALINA Walker [facility] Facility:H1 Procedures Date Procedure Procedure Detail Performing Clinician Start: 05-24-2023 Diabetic retinal eye exam Deon Braxton DO Work Phone: Start: 04-12-2023 Ecg routine ecg w/le ast 12 lds w/i&r Terry Lock RESEARCH AND DEVELOPMENT DIRECTOR-ROCKET ENGINE MECHANIC Work Phone: Start: 03-22-2023 Adult depression scr eening assessment Terry Lock RESEARCH AND DEVELOPMENT DIRECTOR-ROCKET ENGINE MECHANIC Work Phone: Start: 12-29-2022 Diabetic retinal eye exam Terry Lock RESEARCH AND DEVELOPMENT DIRECTOR-ROCKET ENGINE MECHANIC Work Phone: Start: 10-26-2022 Microalbumin [Mass/v olume] in Urine by Test strip Terry Lock RESEARCH AND DEVELOPMENT DIRECTOR-ROCKET ENGINE MECHANIC Work Phone: Start: 11-29-2021 Incision and drainag [...] Joint with Internal Fixation Device, Open Approach [facility] Start: 02-11-2021 Introduction of Othe r Anti-infective into Joints, Open Approach [facility] Start: 02-11-2021 Removal of Spacer fr om Right Ankle Joint, Percutaneous Approach [facility] Start: 02-08-2021 Excision of Right Fi bula, Open Approach [facility] Start: 02-08-2021 Introduction of Othe r Anti-infective into Joints, Open Approach [facility] Start: 02-08-2021 Removal of Internal Fixation Device from Right Ankle Joint, Open Approach [facility] Aerobic microbial culture DO Deon Braxton [...] Td Vaccines (2 - Td or Tdap) [facility] Start: 05-24-2024 Glaucoma screening Diabetic Ophthalmology Exam [facility] Start: 04-12-2024 Adult BMI Screening Adult BMI Screening [facility] Start: 04-12-2024 Tobacco Screening Tobacco Screening [facility] Start: 03-22-2024 Depression Screening Depression Screening [facility] Start: 03-22-2024 Fall Risk Screening Fall Risk Screening [facility] Start: 12-30-2023 Glaucoma screening Diabetic Ophthalmology Exam [facility] Start: 11-29-2023 End: 11-29-2023 Patient encounter procedure 11/29/2023 9:00 AM EDT Office Visit [facility] Internal [facility] - Family Medicine [facility] [place] [address] [facility] - [facility] Start: 11-24-2023 Medicare Annual Wellness Visit Medicare Annual Wellness Visit [facility] Start: 10-27-2023 Diabetic foot examination Diabetic Foot Exam [facility] Start: 10-27-2023 Urine screening for protein Urine Microalbumin [facility] Start: 11-29-2021 [facility] Start: 11-29-2021 [facility] Start: 11-29-2021 Incision and drainage of lower extremity OR I&D Exploration Upper/Lower Extremity (Right) [facility] Start: 11-29-2021 End: 11-29-2021 [facility] Start: 11-03-2021 [facility] Start: 11-03-2021 [facility] Start: 11-03-2021 Amputation of right lower limb OR Leg Amputation Above/Below (Right) [facility] Start: 11-03-2021 End: 11-03-2021 Admission to same day surgery center [facility] Start: 11-02-2021 End: 11-02-2021 Patient encounter procedure Departed Clinical [facility] Jun-Rno-Ffntcqbv Testing Start: 11-01-2021 End: 11-01-2021 Emergency department patient visit Departed Emergency [facility] Start: 10-27-2021 [facility] Work Phone: Start: 10-21-2021 Hospital admission [facility] Work Phone: Start: 10-21-2021 Referral to clinical pastry cook apprentice [facility] Work Phone: Start: 10-21-2021 [facility] Work Phone: Start: 10-18-2021 Referral to clinical pastry cook apprentice [facility] Work Phone: Start: 10-18-2021 Detachment at Right Lower Leg, Mid, Open Approach Detachment at Right Lower Leg, Mid, Open Approach [facility] Start: 10-17-2021 [facility] Work Phone: Start: 10-14-1975 Adult BMI Follow Up Plan Adult BMI Follow Up Plan [facility] Patient Education [facility] Work Phone: Patient referral [facility] Work Phone: SARS-CoV-2 (COVID-19 ) N gene [Presence] in Respiratory specimen by MEREDITH with probe detection [facility] Work Phone: Immunizations Immunization Date Immunization Notes Care Provider Fa cili 03-12-2023 Covid-19,mrna, Lnp-s , Pf, 50mcg/0.5ml 12+ Terry Lock RESEARCH AND DEVELOPMENT DIRECTOR-ROCKET ENGINE MECHANIC Work Phone: [facility] 03-12-2023 Influenza Vaccine, Quadrivalent, Adjuvanted Terry Lock RESEARCH AND DEVELOPMENT DIRECTOR-ROCKET ENGINE MECHANIC Work Phone: [facility] 03-12-2023 RSV, mAb, nirsevimab-alip, 1 mL, to 24 months Terry Lock RESEARCH AND DEVELOPMENT DIRECTOR-ROCKET ENGINE MECHANIC Work Phone: [facility] 03-12-2023 RSV, recombinant, protein subunit RSVpreF, adjuvant reconstituted, 0.5 mL, PF Terry Leo RESEARCH AND DEVELOPMENT DIRECTOR-ROCKET ENGINE MECHANIC Work Phone: [facility] 06-14-2022 zoster vaccine recombinant Terry Leo RESEARCH AND DEVELOPMENT DIRECTOR-ROCKET ENGINE MECHANIC Work Phone: [facility] 04-15-2022 Covid-19, Mrna, Lnp- s, Bivalent, Pf, 50mcg/0.5ml or 25mcg/0.25ml Terry Lock RESEARCH AND DEVELOPMENT DIRECTOR-ROCKET ENGINE MECHANIC Work Phone: [facility] 04-15-2022 zoster vaccine recombinant Terry Leo RESEARCH AND DEVELOPMENT DIRECTOR-ROCKET ENGINE MECHANIC Work Phone: [facility] 04-11-2022 Influenza, High-dose , Quadrivalent Terry Lock RESEARCH AND DEVELOPMENT DIRECTOR-ROCKET ENGINE MECHANIC Work Phone: [facility] 03-01-2021 COVID-19 mRNA-1273 (Moderna) DO [facility] Work Phone: [facility] 03-01-2021 Seasonal, quadrivale nt, recombinant, injectable influenza vaccine, preservative free Terryraisa Lock RESEARCH AND DEVELOPMENT DIRECTOR-ROCKET ENGINE MECHANIC Work Phone: [facility] 06-25-2020 COVID-19 mRNA-1273 (Moderna) DO [facility] Work Phone: [facility] 05-28-2020 COVID-19, mRNA, LNP- S, PF, 100mcg/0.5mL Dose Terry Lock RESEARCH AND DEVELOPMENT DIRECTOR-ROCKET ENGINE MECHANIC Work Phone: [facility] 05-25-2020 COVID-19, mRNA, LNP- S, PF, 100mcg/0.5mL Dose Terry Lock RESEARCH AND DEVELOPMENT DIRECTOR-ROCKET ENGINE MECHANIC Work Phone: [facility] 01-14-2020 influenza, seasonal, injectable Terry Lock RESEARCH AND DEVELOPMENT DIRECTOR-ROCKET ENGINE MECHANIC Work Phone: [facility] 12-30-2019 influenza, injectabl e, quadrivalent, preservative free Terry Lock RESEARCH AND DEVELOPMENT DIRECTOR-ROCKET ENGINE MECHANIC Work Phone: [facility] 04-07-2019 Influenza, injectabl e, Madin Yumiko Canine Kidney, preservative free, quadrivalent Terryraisa Lock RESEARCH AND DEVELOPMENT DIRECTOR-ROCKET ENGINE MECHANIC Work Phone: [facility] 12-31-2018 pneumococcal conjuga te vaccine, 13 valent Terry Lock RESEARCH AND DEVELOPMENT DIRECTOR-ROCKET ENGINE MECHANIC Work Phone: [facility] 01-23-2018 influenza, injectabl e, quadrivalent, contains preservative Terry Lock RESEARCH AND DEVELOPMENT DIRECTOR-ROCKET ENGINE MECHANIC Work Phone: [facility] 01-23-2018 influenza, injectabl e, quadrivalent, preservative free Treryraisa Lock RESEARCH AND DEVELOPMENT DIRECTOR-ROCKET ENGINE MECHANIC Work Phone: [facility] 02-05-2017 influenza, injectabl e, quadrivalent, preservative free Terry Lock RESEARCH AND DEVELOPMENT DIRECTOR-ROCKET ENGINE MECHANIC Work Phone: [facility] 02-05-2017 pneumococcal conjuga te vaccine, 13 valent Terry Lock RESEARCH AND DEVELOPMENT DIRECTOR-ROCKET ENGINE MECHANIC Work Phone: [facility] 01-14-2017 influenza, injectabl e, quadrivalent, contains preservative Terry Lock RESEARCH AND DEVELOPMENT DIRECTOR-ROCKET ENGINE MECHANIC Work Phone: [facility] 01-14-2016 tetanus toxoid, redu joseph diphtheria toxoid, and acellular pertussis vaccine, adsorbed Terry Lock APRN-ROCKET ENGINE MECHANIC Work Phone: [facility] 01-02-2016 influenza virus vacc ine, unspecified formulation Terry Lock RESEARCH AND DEVELOPMENT DIRECTOR-ROCKET ENGINE MECHANIC Work Phone: [facility] 08-13-2015 zoster vaccine, live Terry Lock RESEARCH AND DEVELOPMENT DIRECTOR-ROCKET ENGINE MECHANIC Work Phone: [facility] 12-22-2014 influenza, seasonal, injectable, preservative free Terry Lock RESEARCH AND DEVELOPMENT DIRECTOR-ROCKET ENGINE MECHANIC Work Phone: [facility] 01-26-2014 pneumococcal conjuga te vaccine, 13 valent Terry Lock RESEARCH AND DEVELOPMENT DIRECTOR-ROCKET ENGINE MECHANIC Work Phone: [facility] 01-12-2014 influenza, seasonal, injectable Terry Lock APRN-ROCKET ENGINE MECHANIC Work Phone: [facility] 01-12-2014 Seasonal trivalent influenza vaccine, adjuvanted, preservative free Terry Lock RESEARCH AND DEVELOPMENT DIRECTOR-ROCKET ENGINE MECHANIC Work Phone: [facility] 09-17-2012 pneumococcal polysaccharide vaccine, 23 valent Terry Lock RESEARCH AND DEVELOPMENT DIRECTOR-ROCKET ENGINE MECHANIC Work Phone: [facility] 09-17-2012 pneumococcal vaccine , unspecified formulation Terry Lock RESEARCH AND DEVELOPMENT DIRECTOR-ROCKET ENGINE MECHANIC Work Phone: [facility] Payers Date Payer Category Payer Medicare [id number] 2023 Medicare ANTHEM MEDICARE ANTHEM MEDICARE ADVANTAGE [id number] 2023-[facility] [phone] [address] [place] [address] [id number]. [id number] 2022 Self-pay [id number] 2022 Medicare [id number] 2021 Unknown 1957 Unknown [id number] 2.840.1.579251.3.579.2.196 1957 Unknown [id number] 2.840.1.133323.3.579.2.196 1957 Unknown [id number] 2.840.1.774506.3.579.2.196 1957 Unknown [id number] 2.16840.1.919003.3.579.2.196 1957 Unknown [id number] 2.840.1.608341.3.579.2.593 1957 Unknown [id number] 2.840.1.736619.3.579.2.593 1957 Unknown [id number] 2.16.840.1.835625.3.579.2.593 1957 Unknown [id number] 2.16.840.1.521194.3.579.2.593 1957 Unknown [id number] 2.16.840.1.168366.3.579.2.593 1957 Unknown [id number] 2.16.840.1.274711.3.579.2.59 1957 Unknown [id number] 2.16.840.1.797576.3.579.2.59 1957 Unknown [id number] 2.16.840.1.988774.3.579.2.59 1957 Unknown [id number] 2.16.840.1.795800.3.579.2. 1957 Unknown [id number] 2.16.840.1.613767.3.579.2.593 1957 Unknown [id number] 2.16.840.1.278396.3.579.2.593 1957 Unknown [id number] 2.16.840.1.051801.3.579.2.593 1957 Unknown [id number] 2.16.840.1.692745.3.579.2.59 1957 Unknown [id number] 2.16.840.1.110297.3.579.2.593 1957 Unknown [id number] 2.16.840.1.390007.3.579.2.593 1957 Unknown [id number] 2.16.840.1.480261.3.579.2.593 1957 Unknown [id number] 2.16.840.1.162270.3.579.2.593 1957 Unknown [id number] 2.16.840.1.973506.3.579.2.593 1957 Unknown [id number] 2.16.840.1.261249.3.579.2.593 1957 Unknown [id number] 2.16.840.1.046991.3.579.2.593 1957 Unknown [id number] 2.16.840.1.808464.3.579.2.59 1957 Unknown [id number] 2.16.840.1.707051.3.579.2.593 1957 Unknown [id number] 2.16.840.1.637389.3.579.2. 1957 Unknown [id number] 2.16.840.1.249499.3.579.2. 1957 Unknown [id number] 2.16.840.1.045820.3.579.2. 1957 Unknown [id number] 2.16.840.1.559378.3.579.2. 1957 Unknown [id number] 2.16.840.1.706109.3.579.2.3 1957 Unknown [id number] 2.16.840.1.565869.3.579.2. 1957 Unknown [id number] 2.16.840.1.629565.3.579.2. 1957 Unknown [id number] 2.16.840.1.551359.3.579.2.593 1957 Unknown [id number] 2.16.840.1.673699.3.579.2.59 1957 Unknown [id number] 2.16.840.1.761782.3.579.2.593 1957 Unknown [id number] 2.16.840.1.194664.3.579.2.593 1957 Unknown [id number] 2.16.840.1.494338.3.579.2.593 1957 Unknown [id number] 2.16.840.1.472343.3.579.2.593 1957 Unknown [id number] 2.16.840.1.401435.3.579.2.593 1957 Unknown [id number] 2.16.840.1.254481.3.579.2.593 1957 Unknown [id number] 2.16.840.1.799415.3.579.2.59 1957 Unknown [id number] 2.16.840.1.621310.3.579.2.593 1957 Unknown [id number] 2.16.840.1.241677.3.579.2. 1957 Unknown [id number] 2.16.840.1.985949.3.579.2.593 1957 Unknown [id number] 2.16.840.1.075597.3.579.2.59 1957 Unknown [id number] 2.16.840.1.005811.3.579.2.593 1957 Unknown [id number] 2.16.840.1.126249.3.579.2.593 1957 Unknown [id number] 2.16.840.1.513591.3.579.2.593 1957 Unknown [id number] 2.16.840.1.555702.3.579.2.59 1957 Unknown [id number] 2.16.840.1.768211.3.579.2.593 1957 Unknown [id number] 2.16.840.1.099699.3.579.2.59 1957 Unknown [id number] 2.16.840.1.529723.3.579.2.593 1957 Unknown [id number] 2.16.840.1.198903.3.579.2.593 1957 Unknown [id number] 2.16.840.1.047792.3.579.2.593 1957 Unknown [id number] 2.16.840.1.532980.3.579.2.59 1957 Unknown [id number] 2.16.840.1.811750.3.579.2.59 1957 Unknown [id number] 2.16.840.1.956370.3.579.2.59 1957 Unknown [id number] 2.16.840.1.052377.3.579.2.59 1957 Unknown [id number] 2.16.840.1.731769.3.579.2.59 1957 Unknown [id number] 2.16.840.1.769340.3.579.2.59 1957 Unknown [id number] 2.16.840.1.743160.3.579.2.593 1957 Unknown [id number] 2.16.840.1.552688.3.579.2.1286 1957 Unknown [id number] 2.16.840.1.855990.3.579.2.1286 1957 Unknown [id number] 2.16.840.1.892356.3.579.2.1259 1957 Unknown [id number] 2.16.840.1.090261.3.579.2.1259 1957 Unknown [id number] 2.16.840.1.702651.3.579.2.1259 1957 Unknown [id number] 2.16.840.1.598066.3.579.2.1259 1957 Unknown [id number] 2.16.840.1.972543.3.579.2.1259 1957 Unknown [id number] 2.16.840.1.030364.3.579.2.1259 1957 Unknown [id number] 2.16.840.1.988892.3.579.2.1259 1957 Unknown [id number] 2.16.840.1.063243.3.579.2.1286 1957 Unknown [id number] 2.16.840.1.126479.3.579.2.1286 1957 Unknown [id number] 2.16.840.1.828831.3.579.2.1286 1957 Unknown [id number] 2.16.840.1.044878.3.579.2.1286 Medicare [id number] 2.16.840.1.997754.19 Unknown MMO [id number] Unknown [id number] Unknown [id number] 2.16.840.1.202582.3.579.2.531 Unknown [id number] 2.16.840.1.817847.3.579.2.531 Social History Date Type Detail Facility Unknown if ever smoked [facility] Start: 04-11-2022 End: 04-12-2023 Sex Assigned At [facility] Start: 10-19-2021 End: 01-18-2022 Tobacco smoking status NHIS Never smoked tobacco (finding) [facility] Start: 1955 Sex Assigned At Male [facility] Start: 01-18-2022 Tobacco use and exposure Smokeless tobacco non-user [facility] Start: 04-12-2023 Alcohol intake Current drinker of alcohol (finding) [facility] Start: 04-11-2022 End: 04-12-2023 History of Social function [facility] Do you belong to any clubs or organizations such as moravian groups, unions, fraternal or athletic groups, or school groups? No [facility] Are you now , , , , never or living with a partner? [facility] How often to you hav e a drink containing alcohol? 2-4 times a month [facility] How many standard dr inks containing alcohol do you have on a typical day? 1 or 2 [facility] How often do you hav e 6 or more drinks on 1 occasion? Never [facility] How hard is it for y ou to pay for the very basics like food, housing, medical care, and heating Somewhat hard [facility] Adolescent depressio n screening assessment 0 [facility] Do you feel stress - tense, restless, nervous, or anxious, or unable to sleep at night because your mind is troubled all the time - these days [OSQ] Not at all [facility] Start: 04-11-2022 Education 21 [facility] Start: 09-10-2019 Alcohol Comment social [facility] Start: 1955 Sex Assigned At Not on file [facility] Medical Equipment Procedure Code Equipment Code Equipment Origin al Text Equipment Identifier Dates Gft Hmn Tiss 250 mg Amniofill - [id number] - [id number] Start: 12-27-2018 Gft Sft Tis Matr istem - [id number] - [id number] Start: 01-27-2019 Tiss Grafix Prim e 3x4cm - [id number] - [id number] Start: 09-15-2019 Evera Mri Xt Vr Defibrillator [id number] Start: 07-13-2015 Sprint Quattro S ecure Mri [id number] Start: 07-13-2015 Tissue Epifix 2x 4 Cm - [id number] - [id number] Start: 12-27-2018 USE DIRECTED FOUR TIMES DAILY [id number] Start: 08-07-2022 Goals Date Patient Goal Desired [...] status Patient is Pro gressing Toward Baseline [facility] Work Phone: 10-21-2021 Functional status Patient is Pro gressing Toward Baseline [facility] Work Phone: 10-18-2021 Functional status Patient at Baseline [facility] Work Phone: Mental Status Date Assessment Result Facility 10-27-2021 Cognitive function Cognitive Sta tus Patient at Baseline [facility] Work Phone: 10-21-2021 Cognitive function Cognitive Sta tus Patient is Progressing Toward Baseline [facility] Work Phone: 10-18-2021 Cognitive function Cognitive Sta tus Patient at Baseline [facility] Work Phone: Clinical Notes 01-05-2021 to 04-12-2023 Terry Lock, [facility] - 04/12/2023 11:30 AM Sue High LPN [...] arthropathy, with long-term current use of insulin ([facility] Chronic systolic congestive heart failure ([facility]) Coronary artery disease involving lime coronary artery of lime heart without angina pectoris Hearing loss Personal history of colonic polyps Colon polyps Diverticulosis large intestine w/o perforation or abscess w/o bleeding Chronic obstructive pulmonary disease ([facility]) 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 Gastroesophageal reflux disease with esophagitis without hemorrhage Stage 3b chronic kidney disease ([facility]) Subepithelial esophageal mass Sarcoidosis Diabetic retinopathy ([facility]) Obstructive sleep apnea syndrome Diabetic neuropathy ([facility]) Bilateral sensorineural hearing loss Unilateral complete AKA, right ([facility]) Allergies Allergen Reactions Doxycycline Other reaction(s): Chest Pain Levofloxacin Other reaction(s): Chest Pain Chlorpheniramine Dextromethorphan Hbr Itching Wzwxryiys-Mh-Pxvblebpscdps Guaifenesin Other reaction(s): Itching of skin Hydrocodone [...] involving left anterior descending (LAD) coronary artery ([facility]) 05/28/2015 Hyperlipidemia Interstitial lung disease ([facility]) Left ventricular failure ([facility]) MRSA (methicillin resistant staph aureus) culture positive Peptic ulceration Presence of automatic (implantable) cardiac defibrillator ST elevation (STEMI) myocardial infarction ([facility]) 2015 x 5 stents Stage 3b chronic kidney disease ([facility]) 04/22/2020 Unilateral complete AKA, right ([facility]) 03/31/2022 No data recorded No data recorded No data recorded Past Surgical History: Procedure Laterality Date ANKLE LIGAMENT RECONSTRUCTION Right 2020 APPLICATION AMNIOFILL Right 12/27/2018 Performed by Arlen Olguin DPM at [facility] APPLICATION WOUND VAC ( NOT done) Right 01/27/2019 Performed by Terry Hector DPM at [facility] CARDIAC DEFIBRILLATOR PLACEMENT 07/13/2015 [employer] COLONOSCOPY N/A 04/07/2020 Performed by Deon Braxton DO at [facility] DEBRIDEMENT FOOT EXCISION RT FOOT ULCER, APPLICATION BIOLOGIC SKIN GRAFT RT FOOT, APPLICATION OF WOUND VAC RT FOOT Right 01/27/2019 Performed by Terry Hector DPM at [facility] DEBRIDEMENT FOOT WITH APPLICATION OF GRAFIX Right 09/15/2019 Performed by Terry Hector DPM at [facility] ESOPHAGOGASTRODUODENOSCOPY N/A 05/19/2020 Performed by Deon Braxton DO at [facility] EXCISION 5TH METATARSAL Right 12/30/2018 Performed by Terry Hector DPM at [facility] FINGER SURGERY FOOT SURGERY 07/2020 [facility] Bilateral LAPAROSCOPIC CHOLECYSTECTOMY N/A 06/21/2020 Performed by Deon Justice MD at [facility] LENGTHENING TENDON RIGHT, PLANTAR FASCIOTOMY Right 09/15/2019 Performed by Terry Hector DPM at [facility] SKIN GRAFT LOWER EXTREMITY (APPLICATION OF BIOLOGIC SKIN GRAFT RT FOOT Right 01/27/2019 Performed by Terry Hector DPM at [facility] Family History Problem Relation Age of [...] min Stress: No Stress Concern Present (04/11/2022) [employer] [place] [employer] - Occupational Stress Questionnaire Feeling of Stress : Not at all Social Connections: Moderately Integrated (04/11/2022) Social Connection and Isolation Panel [NHANES] Frequency of Communication with Friends and Family: Twice a week Frequency of Social Gatherings with Friends and Family: Twice a week Attends Baptism Services: 1 to 4 times per year [...] Verbalized understanding 2. Coronary artery disease involving lime coronary artery of lime heart without angina pectoris -aspirin, statin, beta-doreen 3. Ischemic cardiomyopathy -carvedilol, losartan, Aldactone 4. Chronic systolic congestive heart failure (CMS-HCC) -compensated 5. Apical mural thrombus -small, fixed on echocardiogram 04/2020 -has been maintained on Eliquis therapy 5 mg b.i.d. 6. Essential (primary) hypertension -well controlled 7. Cardiac defibrillator in place- Docebo -3.4 years of battery life as of 04/05/2023 -will need in office device check at next visit 8. Mixed hyperlipidemia -LDL at goal. Continue statin therapy Stable, doing well from a cardiovascular standpoint. No changes were made today. Continue current medications. Follow-up in 1 year with . Will need device check in office at that time. TODAYS ORDERS Orders Placed This Encounter Procedures POCT EKG FOLLOW UP Return in about 1 year (around 04/12/2024) for Next scheduled follow up. PCP: Deon Braxton Jr, DO Referring Physician: Deon Braxton DO [address] [place] [address] FANNY Owens 04/12/23 1145 Office note faxed to Dr Lee for clearance [facility] Evaluation note Encounter Date Diagnosis Assessment Notes Dec, Charcot foot due to diabetes mellitus (ICD-10 - E11.610) Dec, Status post transmetatarsal amputation of left foot (ICD-10 - Z89.432) as above, RX written. Dec, Hx of right BKA (ICD-10 - Z89.511) [facility] 07-06-2023 Evaluation note* Encounter Date Diagnosis [...] months. Sep, Peripheral polyneuropathy (ICD-10 - G62.9) [facility] 05-03-2023 Evaluation note* Encounter Date Diagnosis [...] elsewhere classified, subsequent encounter (ICD-10 - T81.31XD) [facility] 03-03-2023 Evaluation note* Encounter Date Diagnosis [...] this time. Patient is following up at [facility] for changes to prosthetic. I did recommend use of a cane to help offload some weight which may reduce his pain. Patient voiced understanding and states no further questions at this time. May, Other specified postprocedural states (ICD-10 - Z98.890) May, Postoperative wound dehiscence, initial encounter (ICD-10 - T81.31XA) [facility] 01-27-2023 Evaluation note* Encounter Date Diagnosis [...] a band-aid. [facility]. I [...] wound dehiscence, initial encounter (ICD-10 - T81.31XA) [facility] 01-11-2023 Evaluation note* Encounter Date Diagnosis [...] wound dehiscence, initial encounter (ICD-10 - T81.31XA) [facility] 12-14-2022 Evaluation note* Encounter Date Diagnosis [...] wound dehiscence, initial encounter (ICD-10 - T81.31XA) [facility] Other 11-08-2022 Evaluation note* Encounter Date Diagnosis Assessment Notes Treatment Notes Treatment Clinical Notes Jan, Right below-knee amputee (ICD-10 - Z89.511) Proceed with K3 level, transtibial prosthesis, preparatory. Diligent monitoring of residual limb. Stop wearing prosthesis immediately if wound should worsen, develop erythema, increased pain, etc. Wearing schedule. [facility] Other 11-04-2022 Evaluation note* Encounter Date Diagnosis [...] wound dehiscence, initial encounter (ICD-10 - T81.31XA) [facility] Other 10-21-2022 Evaluation note* Encounter Date Diagnosis [...] wound dehiscence, initial encounter (ICD-10 - T81.31XA) [facility] Other 10-07-2022 Evaluation note* Encounter Date Diagnosis [...] wound dehiscence, initial encounter (ICD-10 - T81.31XA) [facility] Other 09-23-2022 Evaluation note* Encounter Date Diagnosis [...] wound dehiscence, initial encounter (ICD-10 - T81.31XA) [facility] Other 09-14-2022 Evaluation note* Encounter Date Diagnosis [...] wound dehiscence, initial encounter (ICD-10 - T81.31XA) [facility] Other 09-09-2022 Evaluation note* Encounter Date Diagnosis [...] infectious disease. Faxed wound center information to [phone] and left a voicemail. Dec, Other specified postprocedural states (ICD-10 - Z98.890) Dec, Postoperative wound dehiscence, initial encounter (ICD-10 - T81.31XA) [facility] Other 08-30-2022 History and physical note Author Reddy Brandt [facility] November 29, 2021 11:49am Note Date/Time November 29, 2021 11 :32am [facility] [address] [place] [address] Orthopedic Surgery H&P Signed Patient: Anai Goodman MR#: [id number] : 1955 Acct:[id number] Age/Sex: 66 / M Adm Date: 2 Loc: PA Room: Type: [facility] Attending Dr: Reddy Brandt DO Copies [...] poor healing. I have advised against the oysterman use of narcotic pain medication. I have advised to follow all post-operative instructions in order to obtain the best outcome. Informed consent has been verbally affirmed and signed as indicated. Documented By: Reddy Brandt DO 11/29/21 1129 Signed By: <Electronically signed by Reddy Brandt DO> 11/29/21 1149 [facility] Work Phone: 1(808) 813-862008-29-2022 Evaluation note* Encounter Date Diagnosis Assessment Notes [...] remova l of sutures (ICD-10 - Z48.02) [facility] Other 08-03-2022 Evaluation note* Encounter Date Diagnosis [...] was in understanding and wishes to proceed. [facility] Other 08-01-2022 Evaluation note* Encounter Date Diagnosis [...] move forward with treatment at this time. [facility] Other 07-27-2022 Progress note Author Ghanshyam Kaye [facility] October 25, 2021 11:37pm Note Date/Time October 25, 2021 11:3 7pm [facility] [address] [place] [address] Physiatry(Rehab) Progress Note Signed Patient: Anai Goodman MR#: [id number] : 1955 Acct:[id number] Age/Sex: 66 / M Adm Date: 2 Loc: Room: 5U8002-3 Type : ADM IN Attending Dr: Ghanshyam Kaye MD Copies to: ~ Date of Service: 10/25/2021 Subjective Subjective Narrative: Mr. Goodman is a 66 year old male who is admitted to [facility] inpatient rehab for strengthening s/p planned right BKA. Patient's past medical history significant for DM type II, CAD, IN, s/p pacemaker/defibrillator insertion, CKD, osteomyelitis of the [...] % (Auto) 69.1 Lymph % (Auto) 9.4 Winn % (Auto) 14.5 Eos % (Auto) 6.7 Baso % (Auto) 0.3 Neut # (Auto) 4.0 Lymph # (Auto) 0.5 L Winn # (Auto) 0.8 Eos # (Auto) 0.4 [...] MPV Neut % (Auto) Lymph % (Auto) Winn % (Auto) Eos % (Auto) Baso % (Auto) Neut # (Auto) Lymph # (Auto) Winn # (Auto) Eos # (Auto) Baso # [...] mg 10/21/21 17:51 Bisacodyl 10 Mg Supp.Rect OH 10/21/22 17:50 DAILY PRN Constipation Bumetanide 1 [...] 17:51 Docusate Enema 283 Mg/5 Ml Enema OH 10/21/22 17:50 DAILY PRN Constipation Insulin Aspart 0 units 10/21/21 17:00 10/25/21 20:27 Insulin Aspart 300 Units/3 Ml Insuln.Pen SUBCUT 10/21/22 16:59 7 units TID.WM.[facility] Administration Protocol Insulin Aspart 0 units 10/21/21 17:00 10/25/21 20:30 Insulin Aspart 300 Units/3 Ml Insuln.Pen SUBCUT 10/21/22 16:59 Not Given TID.WITH.MEALS.[facility] Protocol Insulin Detemir 40 units 10/21/21 22:00 10/25/21 20:28 Insulin Detemir 300 Units/3 Ml Insuln.Pen SUBCUT 10/21/22 21:59 40 units QHS CB Administration Lactulose 30 gm 10/21/21 17:51 Lactulose 20 Gm/30 Ml Udc PO 10/21/22 17:50 DAILY PRN Constipation Losartan Potassium 25 mg 10/22/21 09:00 10/25/21 08:08 Losartan 25 Mg Tablet PO 10/22/22 08:59 25 mg QAM [facility] Administration Magnesium Oxide 400 mg 10/22/21 09:00 10/25/21 08:07 Magnesium Oxide 400 Mg Tablet PO 10/22/22 08:59 400 mg QAM [facility] Administration Multivitamins 1 tab 10/22/21 09:00 [...] equipment to enhance the patient's a functional amish Ensure adequate nutrition and hydration Sleep: Denies any issues Pain: Denies any issues Discharge planning: Home with in 7 to 10 days. I spent greater than 25 minutes for services, including wvzq-bg-xvct encounter with the patient, discussion of the case, plan of care, and exam; and rjdpepr-yb-miyq activities, such as reviewing pertinent health consultant documentation, recent therapy notes, laboratory and radiology studies, and discussionof case with care team including nursing, showcase trimmer, and therapists. More than 50 % of time was spent on patient/family counseling or coordination ofcare. Documented By: Ghanshyam Kaye MD 10/25/212333 Signed By: <Electronically signed by Ghanshyam Kaye MD> 10/25/212336 [facility] Work Phone: 1(232) 364-654007-26-2022 Progress note Author Ghanshyam Kaye [facility] October 25, 2021 10:20am Note Date/Time October 23, 2021 11:5 7am [facility] [address] [place] [address] Physiatry(Rehab) Progress Note Signed Patient: Anai Goodman MR#: [id number] : 1955 Acct:[id number] Age/Sex: 66 / M Adm Date: 2 Loc: Room: [address] [place] [address] Type : ADM IN Attending Dr: Ghanshyam Kaye MD Copies to: ~ <Chante Narayan APRN - Last Filed: 10/23/21 11:57> Date of Service: 10/23/2021 Subjective <Chante KRUNAL Narayan - Last Filed: 10/23/21 11:57> Subjective Narrative: Mr. Goodman is a 66 year old male who is admitted to [facility] inpatient rehab for strengthening s/p planned right BKA. Patient's past medical history significant for DM type II, CAD, IN, s/p pacemaker/defibrillator insertion, CKD, osteomyelitis of the [...] Asking about discharge, wants to talk to behavioral health case manager about insurance coverage, but thinks [...] additional complaints, except as documented Exam <Chante aNrayan APRN - Last Filed: 10/23/21 11:57> Physical [...] insight good Judgment: judgment good Objective <Chante Narayan, RESEARCH AND DEVELOPMENT DIRECTOR - Last Filed: 10/23/21 11:57> Labs CBC [...] mg 10/21/21 17:51 Bisacodyl 10 Mg Supp.Rect OH 10/21/22 17:50 DAILY PRN Constipation Bumetanide 2 [...] 17:51 Docusate Enema 283 Mg/5 Ml Enema OH 10/21/22 17:50 DAILY PRN Constipation Insulin Aspart 0 units 10/21/21 17:00 10/23/21 09:05 Insulin Aspart 300 Units/3 Ml Insuln.Pen SUBCUT 10/21/22 16:59 1 units TID.WM.HS CB Administration Protocol Insulin Aspart 0 units 10/21/21 17:00 10/23/21 09:06 Insulin Aspart 300 Units/3 Ml Insuln.Pen SUBCUT 10/21/22 16:59 4 units TID.WITH.MEALS.HS CB Administration Protocol Insulin Detemir 40 units [...] mcg BID CB Administration Assessment/Plan <Chante Narayan, RESEARCH AND DEVELOPMENT DIRECTOR - Last Filed: 10/23/21 11:57> Assessment/Plan (1) [...] equipment to enhance the patient's a functional amish Ensure adequate nutrition and hydration Sleep: Denies any issues Pain: Denies any issues Discharge planning: Home with in 7 to 10 days. I spent greater than 15 minutes for services, including yetb-db-pkoz encounter with the patient, discussion of the case, plan of care, and exam; and mrlftsk-ut-ksal activities, such as reviewing pertinent health consultant documentation, recent therapy notes, laboratory and [...] the chart, including currentorders, allied health and health consultant notes, labs/imaging and plan of care as above. Documented By: Chante Narayan APRN 10/23/21 1 150 Signed By: <Electronically signed by KRUNAL Narayan> 10/23/21 1157 <Electronically signed by Ghanshyam Kaye MD> 10/25/21 1020 [facility] Work Phone: 1(778) 466-633407-26-2022 History and physical note Author Ghanshyam Kaye [facility] October 25, 2021 9:36am Note Date/Time October 22, 2021 9:59 am [facility] [address] [place] [address] Physiatry (Rehab) H&P Signed Patient: Anai Goodman MR#: [id number] : 1955 Acct:[id number] Age/Sex: 66 / M Adm Date: 2 Loc: Room: 1N0673-3 Type : ADM IN Attending Dr: Ghanshyam Kaye MD Copies to: KRUNAL Mendez DO Joseph Riley, MD~ <Chante Narayan APRN - Last Filed: 10/22/21 10:24> Date of Service: 10/22/2021 HPI <Chante Narayan APRN - Last Filed: 10/22/21 10:24> The patient was seen and examined on: 10/21/21 History of Present Illness: Mr. Goodman is a 66 year old male who is admitted to [facility] inpatient rehab for strengthening s/p planned right BKA. Patient's past medical history significant for DM type II, CAD, IN, s/p pacemaker/defibrillator insertion, CKD, osteomyelitis of the [...] 100 Mg Tablet) 100 mg PO QHS [facility] Stop: 10/21/22 21:59 Last Admin: 10/21/21 22:12 Dose: 100 mg Atorvastatin Calcium (Atorvastatin 80 Mg Tablet) 80 mg PO QAM [facility] Stop: 10/22/22 08:59 Last Admin: 10/22/21 08:05 Dose: 80 mg Bisacodyl (Bisacodyl 10 Mg Supp.Rect) 10 mg OH DAILY PRN PRN Reason: Constipation Stop: 10/21/22 17:50 Bumetanide (Bumetanide 2 Mg Tablet) 2 mg PO BID [facility] Stop: 10/21/22 20:59 Last Admin: 10/22/21 08:02 Dose: 2 mg Carvedilol (Carvedilol 6.25 Mg Tablet) 6.25 mg PO BID [facility] Stop: 10/21/22 20:59 Last Admin: 10/22/21 08:02 Dose: 6.25 mg Docusate Sodium (Docusate 100 Mg Capsule) 100 mg PO BID PRN PRN Reason: Constipation Stop: 10/21/22 17:50 Docusate Sodium (Docusate Enema 283 Mg/5 Ml Enema) 283 mg OH DAILY PRN PRN Reason: Constipation Stop: 10/21/22 17:50 Insulin Aspart (Insulin Aspart 300 Units/3 Ml Insuln.Pen) 0 units SUBCUT TID.WM.[facility]; Protocol Stop: 10/21/22 16:59 Last Admin: 10/22/21 08:01 Dose: 1 units Insulin Aspart (Insulin Aspart 300 Units/3 Ml Insuln.Pen) 0 units SUBCUT TID.WITH.MEALS.[facility]; Protocol Stop: 10/21/22 16:59 Last Admin: 10/22/21 08:01 Dose: 4 units Insulin Detemir (Insulin Detemir 300 Units/3 Ml Insuln.Pen) 40 units SUBCUT QSCH Stop: 10/21/22 21:59 Last Admin: 10/21/21 22:02 Dose: 40 units Lactulose (Lactulose 20 Gm/30 Ml Udc) 30 gm PO DAILY PRN PRN Reason: Constipation Stop: 10/21/22 17:50 Losartan Potassium (Losartan 25 Mg Tablet) 25 mg PO QAM [facility] Stop: 10/22/22 08:59 Last Admin: 10/22/21 08:05 Dose: 25 mg Magnesium Oxide (Magnesium Oxide 400 Mg Tablet) 400 mg PO QAM [facility] Stop: 10/22/22 08:59 Last Admin: 10/22/21 08:05 Dose: 400 mg Multivitamins (Multivitamin 1 Tab Tablet) 1 tab PO QAM [facility] Stop: 10/22/22 08:59 Last Admin: 10/22/21 08:05 Dose: 1 tab Nitroglycerin (Nitroglycerin 0.4 Mg Tab.Subl) 0.4 mg SUBLINGUAL DAILY PRN PRN Reason: Chest Pain Stop: 10/21/22 15:49 Rivaroxaban (Rivaroxaban 10 Mg Tablet) 10 mg PO DAILY [facility] Stop: 10/22/22 08:59 Last Admin: 10/22/21 08:06 Dose: 10 mg Fluticasone/Salmeterol (Fluticasone/Salmeterol 232-14 Mcg 60 Puff Inhaler) 1 puff INHALATION BID [facility] Stop: 10/21/22 20:59 Last Admin: 10/22/21 05:10 Dose: 1 puff Sennosides (Sennosides 8.6 Mg Tablet) 2 tab PO DAILY@12 PRN PRN Reason: If no BM in 2 days Stop: 10/22/22 11:59 Sodium Chloride (Sodium Chloride 0.9 % 10 Ml Syringe) 0 ml IV-PUSH PRN PRN PRN Reason: Flush Stop: 10/21/22 17:50 Spironolactone (Spironolactone 25 Mg Tablet) 25 mg PO QAM [facility] Stop: 10/22/22 08:59 Last Admin: 10/22/21 08:05 Dose: 25 mg Vitamin D (Cholecalciferol 125 Mcg (5,000 Units) Tablet) 250 mcg PO BID [facility] Stop: 10/21/22 20:59 Last Admin: 10/22/21 [...] % (Auto) 70.1 Lymph % (Auto) 10.0 Winn % (Auto) 14.8 Eos % (Auto) 4.5 Baso % (Auto) 0.6 Neut # (Auto) 4.6 Lymph # (Auto) 0.7 L Winn # (Auto) 1.0 H Eos # (Auto) [...] MPV Neut % (Auto) Lymph % (Auto) Winn % (Auto) Eos % (Auto) Baso % (Auto) Neut # (Auto) Lymph # (Auto) Winn # (Auto) Eos # (Auto) Baso # [...] 24 hour daily monitoring and intervention from Technician Plant And Maintenance as well as other consulting physicians including internal medicine as well as 24 hour daily psychiatric attendant nursing - for medical safe / optimal [...] problem oriented plan of care Assessment/Plan <Chante Narayan, RESEARCH AND DEVELOPMENT DIRECTOR - Last Filed: 10/22/21 10:24> (1) Below [...] equipment to enhance the patient's a functional amish Ensure adequate nutrition and hydration Sleep: Denies any issues Pain: Denies any issues Discharge planning: Home with in 7 to 10 days. I spent greater than 30 minutes for services, including xjtu-jk-avvn encounter with the patient, discussion of the case, plan of care, and exam; and sdghgei-he-vndn activities, such as reviewing pertinent health consultant documentation, recent therapy notes, laboratory and [...] Allied health note review, nursing note review, health consultant note review, discussion with nursing and [...] chart, including current orders, allied health and health consultant notes, labs/imaging and performed rosado elements of exam and I formulated the plan of care and facilitated the medical decision making and confirmed the nurse practitioner note, as above Documented By: Chante Narayan APRN 10/22/21 0 949 Signed By: <Electronically signed by KRUNAL Narayan> 10/22/21 1024 <Electronically signed by Ghanshyam Kaye MD> 10/25/21 0516 [facility] Work Phone: 1(204) 308-358507-24-2022 Progress note Author Bronwyn Alegre [facility] October 23, 2021 3:11pm Note Date/Time October 23, 2021 3:11 pm [facility] [address] [place] [address] Hospitalist Progress Note Signed Patient: Anai Goodman MR#: [id number] : 1955 Acct:[id number] Age/Sex: 66 / M Adm Date: 2 Loc: Room: 2Y3204-9 Type : ADM IN Attending Dr: Ghanshyam [...] mg 10/21/21 17:51 Bisacodyl 10 Mg Supp.Rect [place] 10/21/22 17:50 DAILY PRN Constipation Bumetanide 1 [...] 17:51 Docusate Enema 283 Mg/5 Ml Enema OH 10/21/22 17:50 DAILY PRN Constipation Insulin Aspart 0 units 10/21/21 17:00 10/23/21 13:13 Insulin Aspart 300 Units/3 Ml Insuln.Pen SUBCUT 10/21/22 16:59 2 units TID.WM. CB Administration Protocol Insulin Aspart 0 units 10/21/21 17:00 10/23/21 13:14 Insulin Aspart 300 Units/3 Ml Insuln.Pen SUBCUT 10/21/22 16:59 5 units TID.WITH.MEALS. CB Administration Protocol Insulin Detemir [...] Losartan, Spironolactone 2.? GRACY on CPAP 3. [id number] 7.3, continue detemir, SSI 4. CKD 3?trend [...] PCP and out patient providers to obtain [facility] record entirely to follow up on illnesses, symptoms, abnormal findings that I have and have not addressed duringthis encounter and hospitalization in out patient setting. Documented By: Bronwyn Alegre MD 10/23/21 1509 Signed By: <Electronically signed by Bronwyn Alegre MD> 10/23/21 1515 [facility] Work Phone: 1(213) 508-233707-24-2022 Consult note Author Bronwyn Alegre [facility] October 23, 2021 7:04am Note Date/Time October 22, 2021 4:18 pm [facility] [address] [place] [address] Hospitalist Consult Note Signed Patient: Anai Goodman MR#: [id number] : 1955 Acct:[id number] Age/Sex: 66 / M Adm Date: 2 Loc: Room: [address] [place] [address] Type : ADM IN Attending Dr: Ghanshyam [...] negative unless noted below or in HPI [facility] Attestation Statement: The following information was validated [...] mg 10/21/21 17:51 Bisacodyl 10 Mg Supp.Rect [place] 10/21/22 17:50 DAILY PRN Constipation Bumetanide 2 [...] 17:51 Docusate Enema 283 Mg/5 Ml Enema OH 10/21/22 17:50 DAILY PRN Constipation Insulin Aspart 0 units 10/21/21 17:00 10/22/21 12:45 Insulin Aspart 300 Units/3 Ml Insuln.Pen SUBCUT 10/21/22 16:59 2 units TID.WM. CB Administration Protocol Insulin Aspart 0 units 10/21/21 17:00 10/22/21 12:46 Insulin Aspart 300 Units/3 Ml Insuln.Pen SUBCUT 10/21/22 16:59 2 units TID.WITH.MEALS.[facility] Administration Protocol Insulin Detemir 40 units [...] % (Auto) 70.1, Lymph % (Auto) 10.0, Winn % (Auto) 14.8, Eos % (Auto) 4.5, Baso % (Auto) 0.6, Neut # (Auto) 4.6, Lymph # (Auto) 0.7 L, Winn # (Auto) 1.0 H, Eos # (Auto) [...] Losartan, Spironolactone 2.? GRACY on CPAP 3. [id number] 7.3, continue detemir, SSI 4. CKD 3?trend labs Documented By: ABDIRASHID Olmedo 2 1618 Signed By: <Electronically signed by ANP-SAUMYA Matias> 10/22/21 1658 <Electronically signed by Bronwyn Alegre MD> 10/23/21 0704 [facility] Work Phone: 1(379) 103-162007-22-2022 Progress note Author Rodriguez Loera [facility] October 21, 2021 8:37am Note Date/Time October 20, 2021 11:0 8am [facility] [address] [place] [address] Hospitalist Progress Note Signed Patient: Anai Goodman MR#: [id number] : 1955 Acct:[id number] Age/Sex: 66 / M Adm Date: 2 Loc: 4N Room: 5X8499-0 Type : ADM IN Attending Dr: Reddy [...] Lactated Ringers IV 10/18/22 07:29 Not Given .[id number] CB Insulin Aspart 0 units 10/18/21 08:00 [...] Mg Tablet PO 10/19/22 08:59 25 mg QA CB Administration Magnesium Oxide 400 mg 10/19/21 [...] signed by Rodriguez Loera MD> 10/21/21 0837 [facility] Work Phone: 1(473) 288-383807-21-2022 Progress note Author Rodriguez Loera [facility] October 20, 2021 8:45am Note Date/Time October 19, 2021 11:2 8am [facility] [address] [place] [address] Hospitalist Progress Note Signed Patient: Anai Goodman MR#: [id number] : 1955 Acct:[id number] Age/Sex: 66 / M Adm Date: 2 Loc: 4 Room: [address] [place] [address] Type : ADM IN Attending Dr: Reddy [...] Lactated Ringers IV 10/18/22 07:29 75 mls/hr .[id number] CB Administration Insulin Aspart 0 units 10/18/21 [...] signed by Rodriguez Loera MD> 10/20/21 0845 [facility] Work Phone: 1(873) 894-334207-20-2022 Progress note Author Reddy Brandt [facility] October 19, 2021 12:11pm Note Date/Time October 19, 2021 12:1 1pm [facility] [address] [place] [address] Orthopedic Progress Note Signed Patient: Anai Goodman MR#: [id number] : 1955 Acct:[id number] Age/Sex: 66 / M Adm Date: 2 Loc: 4N Room: [address] [place] [address] Type : ADM IN Attending Dr: Reddy [...] signed by Reddy Brandt DO> 10/19/21 1211 [facility] Work Phone: 1(425) 660-145107-20-2022 Consult note Author Stewart Lucio [facility] October 19, 2021 1:42am Note Date/Time October 19, 2021 1:11 am [facility] [address] [place] [address] Hospitalist Consult Note Signed Patient: Anai Goodman MR#: [id number] : 1955 Acct:[id number] Age/Sex: 66 / M Adm Date: 2 Loc: 4 Room: [address] [place] [address] Type : ADM IN Attending Dr: Reddy [...] negative unless noted in the HPI below [facility] Attestation Statement: The following information was validated [...] Tablet PO 10/18/22 07:59 500 mg BID.WITH.MEALS [facility] Administration Atorvastatin Calcium 80 mg 10/19/21 09:00 [...] Lactated Ringers IV 10/18/22 07:29 75 mls/hr .[id number] CB Administration Cefazolin Sodium 1 gm in [...] 10/18/22 07:59 6 units TID.WM.HS [facility] Administration Protocol Insulin Aspart 0 units 10/18/21 17:00 10/18/21 23:37 Insulin Aspart 300 Units/3 Ml Insuln.Pen SUBCUT 10/18/22 16:59 Not Given TID.WM.HS [facility] Insulin Detemir 40 units 10/18/21 22:00 10/18/21 21:39 Insulin Detemir 300 Units/3 Ml Insuln.Pen SUBCUT 10/18/22 21:59 40 units QHS [facility] Administration Losartan Potassium 25 mg 10/19/21 09:00 Losartan 25 Mg Tablet PO 10/19/22 08:59 QAM [facility] Magnesium Oxide 400 mg 10/19/21 09:00 Magnesium Oxide 400 Mg Tablet PO 10/19/22 [facility] 1 tab 10/19/21 09:00 Multivitamin 1 Tab Tablet PO 10/19/22 08:59 QAM [facility] Nitroglycerin 0.4 mg 10/18/21 15:44 Nitroglycerin [...] 10 Mg Tablet PO 10/19/22 08:59 DAILY [facility] Fluticasone/Salmeterol 1 puff 10/19/21 09:00 Fluticasone/Salmeterol 232-14 Mcg 60 Puff Inhaler INHALATION 10/19/22 08:59 BID [facility] Sodium Chloride 0 ml 10/18/21 14:00 10/18/21 [...] Tablet PO 10/18/22 20:59 250 mcg BID [facility] Administration Exam Physical Exam Vital Signs: Temp [...] signed by Stewart Lucio MD> 10/19/21 0142 [facility] Work Phone: 1(866) 497-770007-13-2022 Evaluation note* Encounter Date Diagnosis Assessment Notes [...] poor healing. I have advised against the long-term use of narcotic pain medication. I have [...] osteomyelitis of right tibia (ICD-10 - M86.661) [facility] Other 07-07-2022 Evaluation note* Encounter Date Diagnosis Assessment Notes Treatment Notes Treatment Clinical Notes Sep, Other chronic osteomyelitis of right tibia (ICD-10 - M86.661) [facility] Other 07-07-2022 Evaluation note* Encounter Date Diagnosis [...] place his pacemaker into MRI mode. Anyway soil field technician was very helpful and she is [...] worse they are to call me [facility]. [facility] Other 06-09-2022 Evaluation note* Encounter Date Diagnosis [...] to a suppressive dose at that time [facility] Other 11-23-2021 NoteChief Complaint Basal cell carcinoma [...] 03/03/2021 PATIENT : 1955 LOCATION OF PROCEDURE: [facility] SURGEON: Chirag Gutierrez DO INFORMED CONSENT: Obtained by and on file at [facility] CC: [Basal cell carcinoma left ear [...] get a repeat audiogr (more content not included)...[facility]10-11-2021 NoteChief Complaint Open wound Left ear History of Present Illness PLANNED PROCEDURE: Excision and preparation of surgical site, complex plastics myocutaneous advancement flap tear of left ear defect DATE OF PROCEDURE: 01/11/2021 PATIENT : 1955 LOCATION OF PROCEDURE: [facility], SURGEON: Chirag Gutierrez DO INFORMED CONSENT: Obtained by and on file at [facility] CC: Basal cell carcinoma left ear [...] reconstruction amputation of le (more content not included)...[facility] 01-05-2021 NoteChief Complaint MOHs procedure [...] Dr. Freed. Previous pathology by physician in [place] about 1 year ago. PMHx of multiple [...] This patient presented to the [facility] with a chief concern of skin cancer. [...] and corroborated preoperatively wit (more content not included)...[facility]10-06-2021 NoteClinical Information Procedure: Excision with frozen section left ear Pre-operative diagnosis: Basal cell carcinoma Outside pathology report from [facility] was received with accession number [id number]. SP Specimen A Skin of left ear, [...] skin without gross lesi (more content not included)...[facility]:Performed By: #### SPR ####[facility] (DEFAULT)[address] [place], [place] [address]Kfzdncgov summary Author Ghanshyam Kaye [facility] October 28, 2021 10:30am Note Date/Time October 27, 2021 1:34 pm [facility] [address] [place] [address] Discharge Summary Signed Patient: Anai Goodman MR#: [id number] : 1955 Acct:[id number] Age/Sex: 66 / M Adm Date: 2 Loc: Room: 2D8938-[address]: Ghanshyam Kaye MD Copies to: [...] year old male who [facility] s/p planned right BKA. His past medical history significant for DM type II, CAD, [place], s/p pacemaker/defibrillator insertion, CKD, osteomyelitis of the [...] Patient's was on Xarelto while inpatient. Per [facility] pharmacy , insurance co-pay would be over [...] year old male who was admitted to [facility]hab[facility] s/p planned right BKA. His past medical history significant for DM type II, CAD, [place], s/p pacemaker/defibrillator insertion, CKD, osteomyelitis of the [...] Patient's was on Xarelto while inpatient. Per [facility] , insurance co-pay would be over$120 [...] home prior. Your Home Health agency is [facility] ( ). They will usually contact you [...] them prior to your appointment. Instructions: Amputation, Ihmoz-aeg-Shsu (DC) Stand Alone Forms: Insulin Corrective Scale [...] by Ghanshyam Kaye MD> 10/28/21 1030 [facility] Work Phone: Evaluation noteNo [employer] Other Evaluation note* Diagnosis Onset Date Resolution Status Below knee amputation acute Type 2 diabetes mellitus acu te [facility] Work Phone: Evaluation note* Diagnosis Onset Date [...] wound of skin acute Wound dehiscence acute [facility] Work Phone: evaluation note* Diagnosis Onset Date Resolution Status Below knee amputation acute Dehiscence of wound of skin acute Wound dehiscence acute [facility] Work Phone: evaluation noteNo assessment information available [facility] Work Phone: evaluation note* Diagnosis Preop cardiovascular exam- Primary Pre-operative cardiovascular examination Coronary artery disease involving lime coronary artery of lime heart without angina pectoris Ischemic cardiomyopathy Other specified forms of chronic ischemic heart disease Chronic systolic congestive heart failure ([facility]) Apical mural thrombus Essential (primary) hypertension Unspecified essential hypertension Cardiac defibrillator in place- [employer]tr[employer] Automatic implantable cardiac defibrillator in situ Mixed hyperlipidemia documented in this encounter [facility] SystemEvaluation note* Diagnosis Type 2 diabetes mellitus with diabetic neuropathic arthropathy, with long-term current use of insulin ([facility]) documented in this encounter [facility] SystemEvaluation note* Diagnosis Pure hypercholesterolemia [facility] Diagnosis Chronic systolic congestive heart failure ([facility]-HCC) [facility] [employer] [facility]* Diagnosis Sarcoidosis with granulomatous hepatitis documented in this encounter [facility] SystemEvaluation note* Diagnosis Type 2 diabetes mellitus with diabetic neuropathic arthropathy, with long-term current use of insulin ([facility]) documented in this encounter [facility] SystemHistory general Narrative - Reported* Type Description Date Medical History DM1 Medical History HTN Medical History HYPERLIPEDEMIA Surgical History LEFT FOOT SURGERY WITH REMOVAL OF ALL FIVE TOES Surgical History heart cath with [address] placem ent Hospitalization History MRSA 2011 Hospitalization History AG&P Other History general Narrative - Reported* Type Description Date Medical History DM1 Medical History HTN Medical History HYPERLIPEDEMIA Surgical History LEFT FOOT SURGERY WITH REMOVAL OF ALL FIVE TOES Surgical History heart cath with 5 stents placem ent Surgical History 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 hx. [employer] Other InstructionsNot on filedocumented in this encounter [facility] this [facility] Summary Purpose Family History No Family History [...] yelitis of right tibia (M86.661) Referral Organization [facility] Referring Provider First [...] and content) DATE CREATED AUTHOR 05/12/2020 [facility] DATE CREATED AUTHOR AUTHOR'S ORGANIZ ATION 05/26/2021 [facility] DATE CREATED AUTHOR AUTHOR'S ORGANIZ ATION 08/23/2021 [facility] DATE CREATED AUTHOR AUTHOR'S ORGANIZ ATION 11/02/2021 [facility] DATE CREATED AUTHOR AUTHOR'S ORGANIZ ATION 04/08/[address] [facility] DATE CREATED AUTHOR AUTHOR'S ORGANIZ ATION [facility]/15/20[facility] DATE CREATED AUTHOR AUTHOR'S ORGANIZ ATION 06/29/2023 [facility] DATE CREATED AUTHOR AUTHOR'S ORGANIZ ATION 08/03/2023 [facility] DATE CREATED AUTHOR AUTHOR'S ORGANIZ ATION 08/03/2023 [facility] DATE CREATED AUTHOR AUTHOR'S ORGANIZ ATION 08/04/2023 [facility] REASON FOR VISIT (unrecogniz ed section and content) Reason Comments Pre-op Exam EST PT PRE OP DR MARIXA Brown SURG DR LEE Reason Onset Date Comments Med Refill 04/13/2023 Reason Comments Med Refill Reason Onset Date Comments Med Refill 06/01/2023 Care Teams (unrecognized sec tion and content) Team Status: Inactive Member Role Status Dates Deon Braxton , Primary Care Provider Active Reddy Brandt DO Attending Provider Active Team Status: Inactive Member Role Status Dates Deon Braxton , Primary Care Provider Active Reddy Brandt , [...] MD Other Provider Active Golden Whatley , Other Provider Active Adi Feng MD Other Provider Active Letty Turpin MD Other Provider Active Faviola Matias , ANP-BC Other Provider Active Brtet Muñoz MD Other Provider Active Dennis Larson MD Other Provider Active Rodriguez Loera MD Other Provider Active Cuauhtemoc Ramos MD Other Provider Active Darien Maria MD Other Provider Active Stewart Lucio MD Other Provider Active Sonido Murillo MD Other Provider Active Mai Britton NP-C Other Provider Active Christiano Evans MD Other Provider Active Isidro Antunez MD Other Provider Active Rosalind Coburn MD Other Provider Active Bill Osei MD Other Provider Active Lizbeth Mcbride , DO Other Provider Active Fabio Sanchez MD Other Provider Active Kwesi Muhammad , DO Other Provider Active Bre Patel , RESEARCH AND DEVELOPMENT DIRECTOR Other Provider Active Bin Carrera , DO Other Provider Active Patti Taylor MD Other Provider Active Kassandra Munoz , RN Other Provider Active Team Status: Inactive Member Role Status Dates Deon Braxton , DO Primary Care Provider Active Reddy Brandt , DO Referring Provider Active Darien Bailey , METAL RIVETER-C Attending Provider Activ e Team Status: Active [...] MD Other Provider Active Drea Galvin , RESEARCH AND DEVELOPMENT DIRECTOR Other Provider Active Julia Segura , DO [...] MD Other Provider Active Mai Britton , METAL RIVETER-C Other Provider Active Christiano Evans MD Other Provider Active Isidro Antunez MD Other Provider Active Rosalind Coburn MD Other Provider Active Bill Osei MD Other Provider Active Lizbeth Mcbride , DO Other Provider Active Fabio Sanchez MD Other Provider Active Kwesilogan Muhammad , DO Other Provider Active Bre Jorge , RESEARCH AND DEVELOPMENT DIRECTOR Other Provider Active Bin Carrera , DO Other Provider Active Patti Taylor MD Other Provider Active Kassandra Munoz , NBA Other Provider Active Team Status: Inactive Member Role Status Dates Deon Cordovadonna , DO Primary Care Provider Active César Cortes , DO Emergency Provider Active Reddy Brandt , DO Attending Provider Active Team Status: Inactive Member Role Status Dates Deon Cordovadonna , DO Primary Care Provider Active César Cortes , DO Emergency Provider Active Reddy Brandt , DO Admit Provider, Attending Provide r Active [employer] Relationship Specialty Start Date End Date Deon Braxton, DO [address] [place] [address] PCP - General Internal Medicine 01/22/17 [employer] Relationship Specialty Start Date End Date TashaDeon thompson DO [address] [place] [address] PCP - General Internal Medicine 01/22/17 Team Status: Inactive Member Role Status Dates Deon Braxton DO Primary Care Provider Active Sta rt: April 19, 2023 End: April 19, 2023 Salina Lee DPM MS Attending Provider Active Start: April 19, 2023 End: April 19, 2023 [employer] Relationship Specialty Start Date End Date TashaDeon thompson DO [address] [place] [address] PCP - General Internal Medicine 01/22/17 [employer] Relationship Specialty Start Date End Date TashaDeon thompson DO [address] [place] [address] PCP - General Internal Medicine 01/22/17 [employer] Relationship Specialty Start Date End Date RichardDeon florian DO [address] [place] [address] (work) PCP - General Internal Medicine 01/22/17 Goals [...] BE BASED ON THE PRIMARY CLINICAL RECORDS. [employer] [facility]. provides no warranty or guarantee of the accuracy or completeness of information in this document.
--- NOTE | 2023-08-27 10:57 | XR_ITS ---
The [address] [address] Patient Name: ANAI PELAYO MRN: [id number] date: 1955 Sex: M Assigned Patient Location: ED.MAIN Current Patient Location: ER Accession/Order Number: [id number] Exam Date: 08/27/2023 11:35 Report Date: 08/27/2023 13:00 At the request of: BRUNO LIMON Procedure: XR ankle LT min 3V EXAM: XR ankle LT min 3V 08/27/2023. COMPARISON STUDY: Left ankle 04/19/2023. HISTORY: Infection. FINDINGS: Frontal, oblique, and lateral views for 3 views obtained. XR/XR ankle LT min 3V IMPRESSION: 1. Soft tissue swelling and subcutaneous edematous changes about the distal calf, ankle, and foot noted. On the lateral image there are changes from transmetatarsal amputation noted. No convincing evidence of an acute fracture or dislocation. 2. Mild hypertrophic osseous change involving medial and lateral malleoli from remote avulsion injury. There is mild chronic elevation of the periosteum about the distal tibia and fibula which appears chronic and is unchanged. 3. Atherosclerosis with peripheral vascular arterial disease. 4. Multilevel arthritic changes at the midfoot more so than hindfoot are noted. Electronically authenticated by: GREG MCFARLANE Date: 08/27/2023 13:00
[2023-08-27 11:05] LABS: Glucometer 221 mg/dL (74-106)
[2023-08-27] MEDS: 0.9 % SODIUM CHLORIDE 1,000 ML 1000 ML IV (11:07)
[2023-08-27] MEDS: PIPERACILLIN SODIUM/TAZOBACTAM 4.5 GM in 0.9 % SODIUM CHLORIDE 50 ML IV (11:09)
[2023-08-27] MEDS: ONDANSETRON PF 4 MG/2 ML VIAL IV (11:11)
[2023-08-27 11:15] LABS: Basophils Percent Auto 0.1 % (0.2-2.0); Eosinophils Percent Auto 0.1 % (0.9-7.0); Hematocrit 40.4 % (42.0-54.0); Hemoglobin 13.3 g/dL (14.0-18.0); Immature Granulocytes Abs Auto 0.06 10^3/uL (0.00-0.03); Immature Granulocytes Pct Auto 0.4 % (0.0-0.5); Lymphocytes Absolute Auto 0.5 10^3/uL (1.2-3.8); Lymphocytes Percent Auto 3.3 % (20.5-60.0); Mean Corpuscular HGB Conc 32.9 g/dL (29.9-35.2); Mean Corpuscular Hemoglobin 29.4 pg (25.9-34.0); Mean Corpuscular Volume 89.4 fL (80.0-94.0); Mean Platelet Volume 10.2 fL (9.5-13.5); Neutrophils Absolute Auto 12.5 10^3/uL (1.4-6.5); Neutrophils Percent Auto 83.1 % (43.0-75.0); Platelet Count 163 10^3/uL (150-450); Red Blood Count 4.52 10^6/uL (4.70-6.10); Red Cell Distribution Width 14.5 % (11.0-15.0); White Blood Count 15.1 10^3/uL (4.0-11.0)
[2023-08-27 11:31] LABS: Alanine Aminotransferase 58 U/L (16-63); Albumin Globulin Ratio 0.6; Albumin Level 2.8 g/dL (3.4-5.0); Alkaline Phosphatase 93 U/L (46-116); Anion Gap 16.1; Aspartate Amino Transferase 73 U/L (15-37); BUN Creatinine Ratio 28.8; Bilirubin Total 1.6 mg/dL (0.2-1.0); Calcium 9.1 mg/dL (8.5-10.1); Carbon Dioxide 24.6 mmol/L (21.0-32.0); Chloride 96 mmol/L (98-107); Estimated GFR (African America 36 (>=60); Estimated GFR (Non-African Ame 30 (>=60); Globulin 4.9 g/dL; Glucose 230 mg/dL (74-106); Potassium 3.7 mmol/L (3.5-5.1); Sodium 133 mmol/L (136-145); Total Protein 7.7 g/dL (6.4-8.2)
[2023-08-27 11:35] LABS: Lactate/Lactic Acid 2.4 mmol/L (0.4-2.0)
--- NOTE | 2023-08-27 11:49 | ED_ITS ---
HPI HPI - General Adult General Chief complaint: Extremity Injury, Lower Stated complaint: LOWER LEFT EXTREMITY SWELLING, HIGH BLOOD SUGAR Time Seen by Provider: 08/27/23 10:52 Source: patient Mode of arrival: Wheelchair Limitations: physical limitation History of Present Illness HPI narrative: Patient coming to the ER with a left ankle pain and signs of generalized weakness and tiredness and nausea, that started almost 4 days ago, this started after he was moving some wood in the house and apparently he does not remember what happened but he remember after 1 day the patient started having redness that is growing more in the last 24 hours The patient is tired and weak Some decrease in p.o. intake as well The patient is diabetic with a history of a amputation of the distal half of the foot on the left side Related Data Home Medications ?Medication ?Instructions ?Recorded ?Confirmed albuterol sulfate 90 mcg/actuation 2 inh inhalation Q6H PRN shortness 04/16/23 08/27/23 aerosol inhaler (ProAir HFA) of breath or wheezing allopurinol 100 mg tablet 200 mg PO DAILY 04/16/23 08/27/23 ascorbic acid (vitamin C) 500 mg 500 mg PO DAILY 04/16/23 08/27/23 capsule aspirin 81 mg tablet,delayed 81 mg PO DAILY 04/16/23 08/27/23 release (Adult Aspirin Regimen) atorvastatin 80 mg tablet 80 mg PO DAILY 04/16/23 08/27/23 bumetanide 2 mg tablet 1 mg PO BID 04/16/23 08/27/23 carvedilol 6.25 mg tablet 6.25 mg PO BID 04/16/23 08/27/23 cholecalciferol (vitamin D3) 125 5,000 unit PO DAILY 04/16/23 08/27/23 mcg (5,000 unit) capsule coQ10 (ubiquinol) 100 mg capsule 100 mg PO DAILY 04/16/23 08/27/23 (Qunol Cory CoQ10) dapagliflozin propanediol 10 mg 10 mg PO DAILY 04/16/23 08/27/23 tablet (Farxiga) fluticasone furoate 200 1 inh inhalation DAILY PRN 04/16/23 08/27/23 mcg-vilanterol 25 mcg/dose increased sob inhalation powder (Breo Ellipta) losartan 25 mg tablet (Cozaar) 25 mg PO DAILY 04/16/23 08/27/23 magnesium oxide 400 mg PO DAILY 04/16/23 08/27/23 multivitamin (Daily Multi-Vitamin 1 tab PO DAILY 04/16/23 08/27/23 tablet) nitroglycerin 0.4 mg sublingual 0.4 mg sublingual Q5M 04/16/23 08/27/23 tablet (Nitrostat) prednisone 5 mg tablet 5 mg PO .COMPLEX 04/16/23 08/27/23 spironolactone 25 mg tablet 25 mg PO DAILY 04/16/23 08/27/23 duloxetine 30 mg capsule,delayed 30 mg PO DAILY 06/20/23 08/27/23 release insulin glargine 100 unit/mL 40 unit subcut .qhs 06/20/23 08/27/23 subcutaneous solution (Lantus U-100 Insulin) insulin lispro 100 unit/mL 15 unit subcut TIDWM 06/20/23 08/27/23 subcutaneous half-unit pen Previous Rx's ?Medication ?Instructions ?Recorded amoxicillin 500 mg-potassium 1 tab PO BID 14 days #28 tabs 06/26/23 clavulanate 125 mg tablet (Augmentin) tramadol 50 mg tablet 50 mg PO Q6H PRN pain 7 days #28 06/26/23 tabs Allergies Allergy/AdvReac Type Severity Reaction Status Date / Time chlorpheniramine Allergy Hives Verified 08/27/23 10:44 dextromethorphan Allergy Hives Verified 08/27/23 10:44 doxycycline Allergy Verified 08/27/23 10:44 hydrocodone [From Tussionex] Allergy Hives Verified 08/27/23 10:44 levofloxacin Allergy Chest Pain Verified 08/27/23 10:44 Opioid HPI Opioid Management Most Recent Opioid Data: Last Pain Scale 5 08/27/23 13:05 Last MAR Pain Assessment 08/27/23 13:05 Last ORT Total Score 0 06/20/23 12:54 Last ORT Risk Category Low Risk 06/20/23 12:54 Review of Systems ROS Status of ROS 10 or more systems reviewed and unremark able except as noted in history and below [facility] Medical History (Updated 08/27/23 @ 13:10 by Isabell Bryson MD) Below-knee amputation of right lower extremity ?S88.111A - Complete traumatic amputation at level between knee and ankle, right lower leg, initial encounter (ICD-10) Arthritis ?M19.90 - Unspecified osteoarthritis, unspecified site (ICD-10) MRSA (methicillin resistant Staphylococcus aureus) ?A49.02 - Methicillin resistant Staphylococcus aureus infection, unspecified site (ICD-10) Peptic ulcer ?K27.9 - Peptic ulcer, site unspecified, unspecified as acute or chronic, without hemorrhage or perforation (ICD-10) Skin cancer ?C44.90 - Unspecified malignant neoplasm of skin, unspecified (ICD-10) Bronchitis ?J40 - Bronchitis, not specified as acute or chronic (ICD-10) Seizures ?R56.9 - Unspecified convulsions (ICD-10) Myocardial infarction (2015) ?I21.9 - Acute myocardial infarction, unspecified (ICD-10) Osteomyelitis ?M86.9 - Osteomyelitis, unspecified (ICD-10) Chronic ulcer of left ankle ?L97.329 - Non-pressure chronic ulcer of left ankle with unspecified severity (ICD-10) Diabetic neuropathy ?E11.40 - Type 2 diabetes mellitus with diabetic neuropathy, unspecified (ICD-10) Sleep apnea ?G47.30 - Sleep apnea, unspecified (ICD-10) Diabetic retinopathy ?E11.319 - Type 2 diabetes mellitus with unspecified diabetic retinopathy without macular edema (ICD-10) 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E78.5 - Hyperlipidemia, unspecified (ICD-10) Ischemic cardiomyopathy ?I25.5 - Ischemic cardiomyopathy (ICD-10) Apical mural thrombus ?I51.3 - Intracardiac thrombosis, not elsewhere classified (ICD-10) Cardiac defibrillator in place ?Z95.810 - Presence of automatic (implantable) cardiac defibrillator (ICD-10) Surgical History (Updated 04/16/23 @ 09:14 by Terese Puga NP) H/O foot surgery ?Z98.890 - Other specified postprocedural states (ICD-10) History of excision of lesion ?Z98.890 - Other specified postprocedural states (ICD-10) ?Z87.2 - Personal history of diseases of the skin and subcutaneous tissue (ICD-10) History of cardiac catheterization ?Z98.890 - Other specified postprocedural states (ICD-10) History of heart artery stent ?Z95.5 - Presence of coronary angioplasty implant and graft (ICD-10) History of cholecystectomy ?Z90.49 - Acquired absence of other specified parts of digestive tract (ICD- 10) History of arthroscopy of knee ?Z98.890 - Other specified postprocedural states (ICD-10) History of foot surgery ?Z98.890 - Other specified postprocedural states (ICD-10) H/O hand surgery ?Z98.890 - Other specified postprocedural states (ICD-10) History of colonoscopy ?Z98.890 - Other specified postprocedural states (ICD-10) History of esophagogastroduodenoscopy (EGD) ?Z98.890 - Other specified postprocedural states (ICD-10) History of ankle surgery ?Z98.890 - Other specified postprocedural states (ICD-10) Family History (Updated 06/20/23 @ 12:47 by Janna Headley) Mother Family history of CHF (congestive heart failure) Family history of diabetes mellitus Family history of hypertension Heart disease Father Family history of hypertension Social History (Updated 06/20/23 @ 12:48 by Janna Headley) Within the past year, how often did you have a drink containing alcohol: monthly or less Within the past year, how many standard drinks containing alcohol did you have on a typical day: 1 or 2 Within the past year, how often did you have six or more drinks on one occasion: never Total score: 0 Score interpretation: A score less than 4 is consistent with normal alcohol consumption. Smoking status: Never smoker Non-prescribed substance use: denies use Previous occupational history: retired Highest level of school completed/degree received: high school graduate Are you now , , , , never or living with a partner: In a typical week, how many times do you talk on the telephone with family, friends, or neighbors: 3 or more times per week How often do you get together with friends or relatives: 3 or more times per week How often do you attend anglican or sabianist services: 4 or more times per year Do you belong to any clubs or organizations such as anglican groups unions, fraternal or athletic groups, or school groups: no Total score: 3 Score interpretation: A score of greater than or equal to 2 indicates the lowest level of social isolation. Little interest or pleasure in doing things: not at all Feeling down, depressed, or hopeless: not at all Feel stressed/tense/nervous/anxious/difficulty sleeping: not at all Do you think of yourself as: straight/heterosexual Gender Identity: male Exam Narrative Exam Narrative: Nurses notes and vital signs reviewed and patient is not hypoxic. General: Well-appearing and in no apparent distress. Skin: Warm, dry, no pallor noted. No rash. Head: Normocephalic, atraumatic. Neck: Supple, non-tender. Eye: Pupils are equal, round and EOMI. No scleral icterus. Ears, Nose, Mouth, and Throat: TM are clear, no nasal mucosal hypertrophy. Oral mucosa is moist, no posterior oropharynx erythema, uvula is mid-line Cardiovascular: Regular Rate and Rhythm without murmur, gallop or rub. Respiratory: No accessory muscle use or respiratory distress. Lungs are clear to auscultation, no wheezing, rales or rhonchi Chest Wall: no tenderness Back: No midline thoracic or lumbar vertebral tenderness. No CVA tenderness Musculoskeletal: The patient have a right leg prosthetic under the knee. And he also have a left foot distal half amputation with a healing wound, on the medial aspect of the left ankle the patient have a area of redness measuring almost 12 x 7 cm triangular in shape with mild hotness and mild tenderness and no vascular injury detected GI: Abdomen is soft, non-distended. Normal bowel sounds. No masses appreciated. No tenderness to palpation. No rebound, guarding, or rigidity noted. Neurological: A&O x4. No cranial nerve dysfunction observed. No truncal ataxia. Moves all extremities. Sensation intact. Psychiatric: Cooperative and interactive. Normal mood and affect. Constitutional Vital Signs, click to edit/add: Last Vital Signs Temp 98.6 F 08/27/23 10:39 Pulse 95 H 08/27/23 10:39 Resp 24 H 08/27/23 10:39 BP 128/69 08/27/23 13:00 Pulse Ox 96 08/27/23 13:00 O2 Del Method Room Air 08/27/23 10:39 Course Vital Signs Vital signs: Vital Signs Temperature 98.6 F 08/27/23 10:39 Pulse Rate 95 H 08/27/23 10:39 Respiratory Rate 24 H 08/27/23 10:39 Blood Pressure 134/81 08/27/23 10:39 Pulse Oximetry 96 08/27/23 10:39 Oxygen Delivery Method Room Air 08/27/23 10:39 Temperature 98.6 F 08/27/23 10:39 Pulse Rate 95 H 08/27/23 10:39 Respiratory Rate 24 H 08/27/23 10:39 Blood Pressure 128/69 08/27/23 13:00 Pulse Oximetry 96 08/27/23 13:00 Oxygen Delivery Method Room Air 08/27/23 10:39 Medical Decision Making MDM Narrative Medical decision making narrative: Upon presentation the patient was started on sepsis protocol management blood culture was obtained as well as a CBC chemistry Patient was started on Zosyn and the patient lactic acid came elevated and I added the vancomycin as well as a fluid according to the protocol of sepsis with almost 2900 cc of normal saline to be given to the patient The patient blood workup shows a leukocytosis of 15 in addition to an elevation of the creatinine to 2.2 First lactic acid 2.4 The patient x-ray showed no acute significant pathology patient extension service specialist is Dr. Hernandez The patient case was discussed with Dr. Barrera and she agreed with above-mentioned plan Lab Data Labs: Lab Results 08/27/23 08/27/23 Range/Units 10:55 11:03 WBC 15.1 H (4.0-11.0) 10^3/uL RBC 4.52 L (4.70-6.10) 10^6/uL Hgb 13.3 L (14.0-18.0) g/dL Hct 40.4 L (42.0-54.0) % MCV 89.4 (80.0-94.0) fL MCH 29.4 (25.9-34.0) pg MCHC 32.9 (29.9-35.2) g/dL RDW 14.5 (11.0-15.0) % Plt Count 163 (150-450) 10^3/uL MPV 10.2 (9.5-13.5) fL Neut % (Auto) 83.1 H (43.0-75.0) % Lymph % (Auto) 3.3 L (20.5-60.0) % [place] % (Auto) 13.0 H (1.7-12.0) % Eos % (Auto) 0.1 L (0.9-7.0) % Baso % (Auto) 0.1 L (0.2-2.0) % Neut # (Auto) 12.5 H (1.4-6.5) 10^3/uL Lymph # (Auto) 0.5 L (1.2-3.8) 10^3/uL [place] # (Auto) 2.0 H (0.3-0.8) 10^3/uL Eos # (Auto) 0.0 (0.0-0.7) 10^3/uL Baso # (Auto) 0.0 (0.0-0.1) 10^3/uL Abs Immat Gran (auto) 0.06 H (0.00-0.03) 10^3/uL Imm/Tot Granulo (auto) 0.4 (0.0-0.5) % Sodium 133 L (136-145) mmol/L Potassium 3.7 (3.5-5.1) mmol/L Chloride 96 L (98-107) mmol/L Carbon Dioxide 24.6 (21.0-32.0) mmol/L Anion Gap 16.1 BUN 64.0 H (7.0-18.0) mg/dL Creatinine 2.22 H (0.70-1.30) mg/dL Est GFR ( Amer) 36 L (>=60) Est GFR (Non-Af Amer) 30 L (>=60) BUN/Creatinine Ratio 28.8 Glucose 230 H (74-106) mg/dL Lactate 2.4 H* (0.4-2.0) mmol/L Calcium 9.1 (8.5-10.1) mg/dL Total Bilirubin 1.6 H (0.2-1.0) mg/dL AST 73 H (15-37) U/L ALT 58 (16-63) U/L Alkaline Phosphatase 93 (46-116) U/L Total Protein 7.7 (6.4-8.2) g/dL Albumin 2.8 L (3.4-5.0) g/dL Globulin 4.9 g/dL Albumin/Globulin Ratio 0.6 POC Glucose 221 H (74-106) mg/dL Discharge Plan Discharge Chief Complaint: Extremity Injury, Lower Clinical Impression: Acute kidney failure Qualifiers: Acute renal failure type: unspecified Qualified Code(s): N17.9 - Acute kidney failure, unspecified Cellulitis Qualifiers: Site of cellulitis: extremity Site of cellulitis of extremity: lower extremity Laterality: left Qualified Code(s): L03.116 - Cellulitis of left lower limb Sepsis Qualifiers: Sepsis type: sepsis due to unspecified organism Sepsis acute organ dysfunction status: with acute organ dysfunction Severe sepsis acute organ dysfunction type: acute renal failure Acute renal failure type: unspecified Severe sepsis shock status: without septic shock Qualified Code(s): A41.9 - Sepsis, unspecified organism Patient Disposition: Admitted As Inpatient Time of Disposition Decision: 13:10
[2023-08-27] MEDS: VANCOMYCIN HCL 1,000 MG in 0.9 % SODIUM CHLORIDE 250 ML 250 MG IV (11:57)
[2023-08-27] MEDS: TRAMADOL HCL 50 MG TABLET PO ×2 (13:05→20:02)
[2023-08-27] MEDS: 0.9 % SODIUM CHLORIDE 3,000 ML 997.899999999999977 ML IV (13:07)
--- NOTE | 2023-08-27 13:32 | P.HP_ITS ---
HPI H&P: HPI History of Present Illness Chief complaint: LOWER LEFT EXTREMITY SWELLING, SEPSIS, (L) LEG RASHAAD Narrative: This is a 67-year-old male patient with a complicated past medical including poorly controlled DM2, CAD s/p NE and stent placement in 2014, remote history of left forefoot amputation, right BKA in 2021 with recent admission 2 months ago for stump abscess, Chronic systolic heart failure with ICD, COPD, GERD, CKD 3 A, who presented to the ER today with pain and redness of the left ankle. He has also been weak and sugars have remained high. Also with some nausea so not much oral intake. Denies fevers, but notes increased redness 4-5 days. He denies chest pain, SOB, recent illnesses. In the ER patient had elevated WBC's of 15.1 with Cr elevation of 2.22, glucose 230, anion gap 16, lactate 2.4., normal temp and normal BP. ankle X-ray showed soft tissue swelling, and edematous changes only. Patient was given fluid resuscitation per sepsis protocol despite having an EF 30%, patient had about 2L of fluids. Patient was given Vancomycin and Zosyn and admitted to hospitalist service for sepsis secondary to left ankle cellulitis. Opioid HPI Opioid Management Most Recent Opioid Data: Last Pain Scale 5 08/27/23 13:05 Last MAR Pain Assessment 08/27/23 13:05 Last ORT Total Score 0 08/27/23 13:49 Last ORT Risk Category Low Risk 08/27/23 13:49 Review of Systems ROS Narrative ROS: a complete review of systems were reviewed with patient and are positive as below or listed in History of Chief Complaint. General: no fever, chills, night sweats Head: no headache, trauma, visual changes, nausea or vomiting Skin: no reported rashes, itching or sores Eyes: no blurriness of vision Ears: no reported hearing loss, vertigo, earache, or tinnitus Throat: no sore throat, hoarseness, swelling of neck, or tongue pain Heart: no chest pain Lungs: no shortness of breath or cough GI: no diarrhea but vomiting/nausea Urinary: no urinary urgency, frequency or pain Neuro: no numbness or tingling HEM: no bleeding issues or bruising ENDO: no thyroid problems Psych: no anxiety or depression [facility] Medical History Below-knee amputation of right lower extremity ?S88.111A - Complete traumatic amputation at level between knee and ankle, right lower leg, initial encounter (ICD-10) Arthritis ?M19.90 - Unspecified osteoarthritis, unspecified site (ICD-10) MRSA (methicillin resistant Staphylococcus aureus) ?A49.02 - Methicillin resistant Staphylococcus aureus infection, unspecified site (ICD-10) Peptic ulcer ?K27.9 - Peptic ulcer, site unspecified, unspecified as acute or chronic, without hemorrhage or perforation (ICD-10) Skin cancer ?C44.90 - Unspecified malignant neoplasm of skin, unspecified (ICD-10) Bronchitis ?J40 - Bronchitis, not specified as acute or chronic (ICD-10) Seizures ?R56.9 - Unspecified convulsions (ICD-10) Myocardial infarction (2015) ?I21.9 - Acute myocardial infarction, unspecified (ICD-10) Osteomyelitis ?M86.9 - Osteomyelitis, unspecified (ICD-10) Chronic ulcer of left ankle ?L97.329 - Non-pressure chronic ulcer of left ankle with unspecified severity (ICD-10) Diabetic neuropathy ?E11.40 - Type 2 diabetes mellitus with diabetic neuropathy, unspecified (ICD-10) Sleep apnea ?G47.30 - Sleep apnea, unspecified (ICD-10) Diabetic retinopathy ?E11.319 - Type 2 diabetes mellitus with unspecified diabetic retinopathy without macular edema (ICD-10) 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E78.5 - Hyperlipidemia, unspecified (ICD-10) Ischemic cardiomyopathy ?I25.5 - Ischemic cardiomyopathy (ICD-10) Apical mural thrombus ?I51.3 - Intracardiac thrombosis, not elsewhere classified (ICD-10) Cardiac defibrillator in place ?Z95.810 - Presence of automatic (implantable) cardiac defibrillator (ICD-10) Surgical History H/O foot surgery ?Z98.890 - Other specified postprocedural states (ICD-10) History of excision of lesion ?Z98.890 - Other specified postprocedural states (ICD-10) ?Z87.2 - Personal history of diseases of the skin and subcutaneous tissue (ICD-10) History of cardiac catheterization ?Z98.890 - Other specified postprocedural states (ICD-10) History of heart artery stent ?Z95.5 - Presence of coronary angioplasty implant and graft (ICD-10) History of cholecystectomy ?Z90.49 - Acquired absence of other specified parts of digestive tract (ICD- 10) History of arthroscopy of knee ?Z98.890 - Other specified postprocedural states (ICD-10) History of foot surgery ?Z98.890 - Other specified postprocedural states (ICD-10) H/O hand surgery ?Z98.890 - Other specified postprocedural states (ICD-10) History of colonoscopy ?Z98.890 - Other specified postprocedural states (ICD-10) History of esophagogastroduodenoscopy (EGD) ?Z98.890 - Other specified postprocedural states (ICD-10) History of ankle surgery ?Z98.890 - Other specified postprocedural states (ICD-10) Family History Mother Family history of CHF (congestive heart failure) Family history of diabetes mellitus Family history of hypertension Heart disease Father Family history of hypertension Social History Within the past year, how often did you have a drink containing alcohol: monthly or less Within the past year, how many standard drinks containing alcohol did you have on a typical day: 1 or 2 Within the past year, how often did you have six or more drinks on one occasion: never Total score: 0 Score interpretation: A score less than 4 is consistent with normal alcohol consumption. Smoking status: Never smoker Non-prescribed substance use: denies use Previous occupational history: retired Highest level of school completed/degree received: high school graduate Are you now , , , , never or living with a partner: In a typical week, how many times do you talk on the telephone with family, friends, or neighbors: 3 or more times per week How often do you get together with friends or relatives: 3 or more times per week How often do you attend temple or judaism services: 4 or more times per year Do you belong to any clubs or organizations such as temple groups unions, [employer] or athletic groups, or school groups: no Total score: 3 Score interpretation: A score of greater than or equal to 2 indicates the lowest level of social isolation. Little interest or pleasure in doing things: not at all Feeling down, depressed, or hopeless: not at all Feel stressed/tense/nervous/anxious/difficulty sleeping: not at all Do you think of yourself as: straight/heterosexual Gender Identity: male Meds Home Medications and Allergies Home Medications ?Medication ?Instructions ?Recorded ?Confirmed ?Type albuterol sulfate 90 mcg/actuation 2 inh inhalation Q6H PRN shortness 04/16/23 08/27/23 History aerosol inhaler (ProAir HFA) of breath or wheezing allopurinol 100 mg tablet 200 mg PO DAILY 04/16/23 08/27/23 History ascorbic acid (vitamin C) 500 mg 500 mg PO DAILY 04/16/23 08/27/23 History capsule aspirin 81 mg tablet,delayed 81 mg PO DAILY 04/16/23 08/27/23 History release (Adult Aspirin Regimen) atorvastatin 80 mg tablet 80 mg PO DAILY 04/16/23 08/27/23 History bumetanide 2 mg tablet 1 mg PO BID 04/16/23 08/27/23 History carvedilol 6.25 mg tablet 6.25 mg PO BID 04/16/23 08/27/23 History cholecalciferol (vitamin D3) 125 5,000 unit PO DAILY 04/16/23 08/27/23 History mcg (5,000 unit) capsule coQ10 (ubiquinol) 100 mg capsule 100 mg PO DAILY 04/16/23 08/27/23 History (Qunol Cory CoQ10) dapagliflozin propanediol 10 mg 10 mg PO DAILY 04/16/23 08/27/23 History tablet (Farxiga) fluticasone furoate 200 1 inh inhalation DAILY PRN 04/16/23 08/27/23 History mcg-vilanterol 25 mcg/dose increased sob inhalation powder (Breo Ellipta) losartan 25 mg tablet (Cozaar) 25 mg PO DAILY 04/16/23 08/27/23 History magnesium oxide 400 mg PO DAILY 04/16/23 08/27/23 History multivitamin (Daily Multi-Vitamin 1 tab PO DAILY 04/16/23 08/27/23 History tablet) nitroglycerin 0.4 mg sublingual 0.4 mg sublingual Q5M 04/16/23 08/27/23 History tablet (Nitrostat) prednisone 5 mg tablet 5 mg PO .COMPLEX 04/16/23 08/27/23 History spironolactone 25 mg tablet 25 mg PO DAILY 04/16/23 08/27/23 History duloxetine 30 mg capsule,delayed 30 mg PO DAILY 06/20/23 08/27/23 History release insulin glargine 100 unit/mL 40 unit subcut .qhs 06/20/23 08/27/23 History subcutaneous solution (Lantus U-100 Insulin) insulin lispro 100 unit/mL 15 unit subcut TIDWM 06/20/23 08/27/23 History subcutaneous half-unit pen amoxicillin 500 mg-potassium 1 tab PO BID 14 days #28 tabs 06/26/23 08/27/23 Rx clavulanate 125 mg tablet (Augmentin) tramadol 50 mg tablet 50 mg PO Q6H PRN pain 7 days #28 06/26/23 08/27/23 Rx tabs Allergies Allergy/AdvReac Type Severity Reaction Status Date / Time chlorpheniramine Allergy Hives Verified 08/27/23 10:44 dextromethorphan Allergy Hives Verified 08/27/23 10:44 doxycycline Allergy Verified 08/27/23 10:44 hydrocodone [From Tussionex] Allergy Hives Verified 08/27/23 10:44 levofloxacin Allergy Chest Pain Verified 08/27/23 10:44 Exam Narrative Exam Narrative: General: Patient is alert, and oriented to person, place and time with normal affect, proper hygiene Skin: see MS exam Head: atraumatic, acephalic Eyes: PERRLA, no nystagmus present, conjunctiva clear, no scleral icterus Ears: normal Tympanic Membrane, normal gross auditory acuity Nose: symmetric, no discharge, no maxillary or frontal sinus tenderness Mouth/Throat: no erythema, exudate, or tonsillar enlargement, normal dentition Neck: no masses palpated, normal thyroid, no JVD or audible carotid bruits Heart: Normal rate and rhythm, no murmurs/rubs/gallops Lungs: no audible wheezes, crackles and normal breath sounds all lung ochoa Abdomen: Normal audible bowel sounds, no distension, No palpable masses, no organomegaly, no rebound/guarding/ or rigidity Musculoskeletal: right BKA, left lower ext shows: erythema over the medial malleolus, does not include toes or heel Neuro: CN II-X grossly intac Constitutional Vital Signs, click to edit/add: Last Vital Signs Temp 98.6 F 08/27/23 10:39 Pulse 95 H 08/27/23 10:39 Resp 24 H 08/27/23 10:39 BP 128/69 08/27/23 13:00 Pulse Ox 97 08/27/23 13:20 O2 Del Method Room Air 08/27/23 10:39 Results Labs Labs: Short CBC 08/27/23 Range/Units 10:55 WBC 15.1 H (4.0-11.0) 10^3/uL Hgb 13.3 L (14.0-18.0) g/dL Hct 40.4 L (42.0-54.0) % Plt Count 163 (150-450) 10^3/uL BMP 08/27/23 10:55 Sodium 133 L Potassium 3.7 Chloride 96 L Carbon Dioxide 24.6 BUN 64.0 H Creatinine 2.22 H Glucose 230 H Calcium 9.1 Liver Function 08/27/23 Range/Units 10:55 Total Bilirubin 1.6 H (0.2-1.0) mg/dL AST 73 H (15-37) U/L ALT 58 (16-63) U/L Alkaline Phosphatase 93 (46-116) U/L Albumin 2.8 L (3.4-5.0) g/dL Assessment and Plan Assessment and Plan (1) Severe sepsis with acute organ dysfunction: Assessment and Plan: with renal failure. Lacate 2.4, recheck, given fluids but did not receive full fluid bolus due to patient having heart failure. blood cultures, urine and wound culture pending. Leukocytosis at 15, start Zosyn and Linezolid, given history of MRSA (2) Cellulitis: Assessment and Plan: check ESR, CRP; continue zosyn and linezolid, consult podiatry for any further recs Qualifiers: Laterality: left Site of cellulitis: extremity Site of cellulitis of extremity: lower extremity Qualified Code(s): L03.116 - Cellulitis of left lower limb (3) Acute kidney failure: Assessment and Plan: secondary to #1, also with known CKD, gentle fluid hydration and renally dosing medications. avoiding Vancomycin Qualifiers: Acute renal failure type: unspecified Qualified Code(s): N17.9 - Acute kidney failure, unspecified (4) Diabetes: Assessment and Plan: continue SSI, restart long acting insulin. normal anion gap, no appearance of DKA, recheck ha1c in the morning. Qualifiers: Diabetes mellitus complication detail: with other skin complication Diabetes mellitus complication status: with skin complications Diabetes mellitus ocean transportation intermediary insulin use: with ocean transportation intermediary use Diabetes mellitus type: type 2 Qualified Code(s): E11.628 - Type 2 diabetes mellitus with other skin complications; Z79.4 - [facility] (current) use of insulin (5) Hypertension: Assessment and Plan: stable. continue home medications. Qualifiers: Hypertension type: primary hypertension Qualified Code(s): I10 - Essential (primary) hypertension (6) COPD (chronic obstructive pulmonary disease): Assessment and Plan: no acute exacerbation. continue inhalers. Qualifiers: COPD type: unspecified COPD Qualified Code(s): J44.9 - Chronic obstructive pulmonary disease, unspecified (7) Chronic systolic (congestive) heart failure: Assessment and Plan: monitor with caution given so much fluids in ER, check proBNP in the morning, echo from june 2023, showed EF 30-35% (8) CAD (coronary artery disease): Assessment and Plan: continue home medications Qualifiers: [place] vs. transplanted heart: [place] heart (9) Stage 3a chronic kidney disease (CKD): Plan patient is a full code Heparin for Dvt prophlaxis patient is placed in inpatient status and expected to cross 2 midnights for medically necessary care given severe sepsis and concern for decompensation.
--- OUTSIDE RECORDS SUMMARY | 2023-08-27 13:39 | XMS_ITS | CCD ---
Author Organization [facility] Inform ion Partnership [facility] [place] [facility] Care Team Providers Care Business Editor Name Role Phone DEON BRAXTON Primary Care [...] Unavailable DO Deon Braxton Primary Care Provider [phone] DO Reddy Brandt Attending Provider DO Reddy Brandt Referring Provider [phone] CRISTINA Bailey Attending Provider DO Reddy Brandt Admit Provider NBA Hope Other Provider Unavailable NBA Ruiz Other Provider Unavailable NBA Sorensen Other Provider Unavailable NBA Jasso Other Provider Unavailable NBA Frederick Other Provider Unavailable NBA Parmar Other Provider Unavailable MD Fredi Mendez Other Provider KRUNAL Galvin Other Provider [phone] DO Julia Segura Other Provider [phone] MD Armando Hanks Other Provider DO Golden Whatley Other Provider MD Adi Feng Other Provider MD Letty Turpin Other Provider [phone] Polly ANP- Faviola Other Provider MD Brett Muñoz Other Provider MD Dennis Larson Other Provider MD Rodriguez Loera Other Provider MD Cuauhtemoc Ramos Other Provider MD Darien Maria Other Provider MD Stewart Lucio Other Provider MD Sonido Murillo Other Provider Reba, TOBACCO CLOTH RECLAIMER-C Mai Vega Other Provider MD Christiano Evans Other Provider MD Isidro Antunez Other Provider MD Rosalind Coburn Other Provider MD Bill Osei Other Provider DO Lizbeth Mcbride Other Provider Al MD Fabio Fernandez Other Provider DO Kwesi Muhammad Other Provider [phone] KRUNAL Patel Other Provider DO Bin Carrera Other Provider MD Patti Taylor Other Provider [phone] NBA Munoz Other Provider Unavailable BALJEET LEONG [...] CHAVARRIA Primary Care Un[facility] Walker Attending Unavailable HIGHLANDERSALINA Admitting Unavailable CLOUNAERTYBALJEET Attending Unavailabl e CLOBALJEET SIERRA Admitting Unavailabl e YUDONNA, DR CHAVARRIA Primary Care Unavailable CLOMARIELA, BALJEET O Admitting Unavailabl e CLOUGHERTY, BALJEET O Attending Unavailabl e YUDONNA, DR CHAVARRIA Primary Care Unavailable CLOMARIELA, BALJEET O Admitting Unavailabl e CLOUGHERTY, BALJEET O Attending Unavailabl e IRAIS, DR CHAVRARIA Primary Care Unavailable YUMARVAS, DR CHAVARRIA Primary Care Unavailable [facility], SALINA Walker Attending Unavailable [facility], SALINA Walker Admitting Unavailable [facility] SALINA Walker Attending Unavailable ATLANTA, DR ANAI Edomnd Consulting Unavailable [facility] SALINA Walker Admitting Unavailable YUHAS, DR CHAVARRIA Primary Care Unavailable [facility], SALINA Walker Consulting Unavailable [facility] SALINA Walker Attending Unavailable [facility], SALINA Walker Admitting Unavailable YUHAS, DR CHAVARRIA Primary Care Unavailable ZIER, DR ARLEN Patel Consulting Unavailable [facility], SALINA Walker Consulting Unavailable [facility] SALINA Walker Attending Unavailable [facility] Admitting Unavailable YUHAS, DR CHAVARRIA Primary Care Unavailable [facility], SALINA Walker Attending [facility]available [facility] Admitting Unavailable YUHAS, DR CHAVARRIA Primary Care Unavailable [facility], SALINA Walker Attending Unavailable YUHAS, DR CHAVARRIA Primary Care Unavailable [facility] SALINA Walker Admitting Unavailable HIGHLANDER, SALINA Walker Attending Unavailable YUHAS, DR CHAVARRIA Primary Care Unavailable [facility], SALINA Walker Consulting Unavailable [facility] SALINA Walker Admitting Unavailable BALJEET LEONG Attending Unavailabl e CLOBALJEET SIERRA Admitting Unavailabl e YUDONNA, DR CHAVARRIA Primary Care Unavailable CLOBALJEET SIERRA Admitting Unavailabl e CLOUGHERTYBALJEET Attending Unavailabl e YUDONNA, DR CHAVARRIA Primary Care Unavailable CLOBALJEET SIERRA Admitting Unavailabl e CLOUGHERTYBALJEET O Attending Unavailabl e YUDONNA, DR CHAVARRIA Primary Care Unavailable IRAIS, DR CHAVARRIA Primary Care Unavailable [facility] SALINA Walker Attending Unavailable HIGHLANDERSALINA Admitting [...] Unavailable YUHAS, DR CHAVARRIA Primary Care Unavailable CLOUANERTYBALJEET Attending Unavailabl e CLOUGHERTY, BALJEET O Admitting [...] Patel Consulting Unavailable SALOME, SANTOS Consulting Unavailable SALINA LEE Consulting Unavailable [...] Admit Provider MD Ghanshyam Kaye Attending Provider [phone] MD Bronwyn Alegre Other Provider ROHIT Palacios Emergency Provider DO César Cortes Emergency Provider Yumarvas, DO Deon Primary Care Provider [phone] DO Reddy Brandt Attending Provider [phone] Yuhas, DO Deon Primary Care Provider DO Reddy Brandt A Attending Provider DO César Cortes Emergency Provider [phone] DO Reddy Brandt Admit Provider Ghanshyam Kaye Unavailable Yuhas, DO Deon Primary Care Provider DO Reddy Brandt Attending Provider Dung Serna Unavailable YOVANNY CALHOUN Attending Unavailable YOVANNY CALHOUN Referring Unavailable YUHAS, DEON L Primary Care Unavailable Yuhas DODeon Primary Care Provider TERRY LOCK Attending Unavailable YUHAS, DEON L Referring Unavailable YUHAS, DEON L Primary Care Unavailable Yuhas, DO Deon Primary Care Provider [phone] ERIKA Lee Attending Provider Salina Lee Attending [...] Chlorpheniramine; Translations: [chlorpheniramine] Drug Allergy 07-02-19 21 [facility] Repository (15 sources) Dextromethorphan; Translations: [dextromethorphan] Drug Allergy 10-19-19 22 Unknown Reaction [facility] Repository (20 sources) Doxycycline; Translations: [doxycycline] Drug Allergy 04-02-19 21 FELT LIKE A HEART ATTACK, Chest Pain [facility] Repository (20 sources) guaiFENesin; Translations: [guaiFENesin] Drug Allergy 04-14-19 16 [facility] Repository (20 sources) levoFLOXacin; Translations: [levoFLOXacin] Drug Allergy 04-02-19 21 Chest Pain [facility] Repository (20 sources) Phenylephrine; Translations: [phenylephrine] Drug Allergy 07-02-19 21 Unknown Reaction [facility] Repository (1 source) Tussionex [employer]; Translations: [Tussionex [employer]] Propensity to adverse reactions to drug (disorder) [facility] Repository (20 sources) Tussin Drug allergy [facility] Other (20 sources) HYDROcodone; Translations: [HYDROCODONE] Drug Allergy 10-19-19 22 [facility] (6 sources) Chlorpheniramine / HYDROcodone; Translations: [TUSSIONEX] Drug Allergy [facility] Repository (11 sources) Dextromethorphan; Translations: [DEXTROMETHORPHAN HBR] Drug Allergy 10-18-19 23 Itching [facility] Repository (11 sources) NRKGEIDLM-GI-SAUYZN INOPHEN; Translations: [UZGCNCMJN-DV-BHHIN MINOPHEN] Propensity to adverse reactions to drug (disorder) 02-04-20 [facility] Repository (7 sources) Chlorpheniramine / HYDROcodone Drug Allergy [facility] (1 source) carbetapentane Drug Allergy 12-06-19 23 [facility] Repository Medications Current Medications Medication Drug Class(es) Dates Sig (Normalized) Sig (Original) acetaminophen 500 mg oral tablet (14 sources) Start: 10-27-2021 take 500 mg by mouth every four hours Acetaminophen Active 500 MG PO Q4H 100 October 26, 2021 11:00pm take 1 capsule by mouth every si x hours Acetaminophen 500 MG 1 capsule as needed Orally every 6 hrs Active [id number] 200 actuat albuterol 0.09 mg/actuat metered dose [...] mL nebulizer Indications: COPD with acute exacerbation ([facility]) USE 3 ML VIA NEBULIZER FOUR TIMES [...] 3 06/12/2022 Active take 1 tablet by mihcael th at mealtime Carvedilol 12.5 MG 1 [...] Indications: Chronic systolic congestive heart failure ([facility]) Take 1 tablet (10 mg total) by [...] arthropathy, with long-term current use of insulin ([facility]) CHANGE EVERY 2 WEEKS DIRECTED 6 kit [...] arthropathy, with long-term current use of insulin ([facility]) Inject 15 Units under the skin in the morning and 15 Units at noon and 15 Units in the evening. Inject with meals. 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] Onset: 11-23-2017 [...] sources) Long-term current use of insulin; Translations: [longterm (current) use of insulin] Episodic Other and [...] Onset: 01-18-2021 Episodic Other aftercare (1 source) longterm (current) use of aspirin; Translations: [CUSTODIAL CURRENT USE OF ASPIRIN] Onset: 03-02-2021 Episodic Other aftercare (3 sources) 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; Translations: [CUSTODIAL CURRENT USE OF INSULIN] Onset: 04-22-2020 Episodic Other aftercare (1 source) Other buttermaker (current) drug therapy; Translations: [OTH CUSTODIAL CURRENT DRUG THERAPY] Onset: 03-02-2021 Episodic Other [...] 08-02-2023 Albumin [Mass/Vol] 4.3 g/dL Normal 3.2-5.3 [facility] Comment on above: Performed By: #### [place], [address]0868-1, HA1C #### [facility] ([id number]) [address] [place] [address] ALP [Catalytic activity/Vol] 85 U/L Normal 39-130 [facility] Comment on above: Performed By: #### Uzair COSBY, 18248-0, HA1C #### [facility] ([id number]) [address], [address] [place] [address] ALT [Catalytic activity/Vol] 31 U/L Normal 0-40 [facility] Comment on above: Performed By: #### Uzair COSBY, 41298-7, HA1C #### [facility] ([id number]) [address], [address] [place] [address] Anion gap [Moles/Vol] 8 mmol/L Normal 5-15 [facility] Comment on above: Performed By: #### Uzair COSBY, 37488-1, HA1C #### [facility] ([id number]) [address], [address] [place] [address] AST [Catalytic activity/Vol] 29 U/L Normal 0-41 [facility] Comment on above: Performed By: #### Uzair COSBY, 01011-8, HA1C #### [facility] ([id number]) [address], [address] [place] [address] Bilirubin [Mass/Vol] 0.9 mg/dL Normal 0.3-1.[address] [facility] Comment on above: Performed By: #### Uzair COSBY, 05623-2, HA1C #### [facility] ([id number]) [address], [address] [place] [address] Calcium [Mass/Vol] 9.7 mg/dL Normal 8.5-10.5 [facility] Comment on above: Performed By: #### Uzair COSBY, 87729-9, HA1C #### [facility] ([id number]) [address], [address] [place] [address] Chloride [Moles/Vol] 103 mmol/L Normal 98-[address] [facility] Comment on above: Performed By: #### C ALEA, 05797-4, HA1C #### [facility] ([id number]) [address], [address] [place] [address] CO2 [Moles/Vol] 31 mmol/L Normal 22-32 [facility] Comment on above: Performed By: #### C ALEA, 01730-4, HA1C #### [facility] ([id number]) [address], [address] [place] [address] Creatinine [Mass/Vol] 1.35 mg/dL High 0.60-1.30 [facility] Comment on above: Result Comment: METH OD TRACEABLE TO IDMS STANDARD Performed By: #### C ALEA, 20915-3, MARVA1C #### [facility] ([id number]) [address], [address] [place] [address] GFR/1.73 sq M.predicted among non-blacks MDRD (S/P/Bld) [Vol rate/Area] 58 mL/min/{1.73_m2} Low >59 [facility] Comment on above: Result Comment: Reported eGFR is based on the CKD-EPI 2020 equation that does not use a race coefficient. Performed By: #### C ALEA, 39795-0, MARVA1C #### [facility] ([id number]) [address], [address] [place] [address] Glucose [Mass/Vol] 135 mg/dL High 65-99 [facility] Comment on above: Performed By: #### C ALEA, 74449-1, HA1C #### [facility] ([id number]) [address], [address] [place] [address] Potassium [Moles/Vol] 4.3 mmol/L Normal 3.5-5.0 [facility] Comment on above: Performed By: #### C ALEA, 26328-8, HA1C #### [facility] ([id number]) [address], [address] [place] [address] Protein [Mass/Vol] 6.9 g/dL Normal 6.0-8.0 [facility] Comment on above: Performed By: #### Uzair COSBY, 95307-3, MARVA1C #### [facility] ([id number]) [address], [facility] [address] [place] [address] Sodium [Moles/Vol] 142 mmol/L Normal 134-146 [facility] Comment on above: Performed By: #### Uzair COSBY 20629-3, HA1C #### [facility] ([id number]) [address], [facility] [address] [place] [address] Urea nitrogen [Mass/Vol] 31 mg/dL High 5-27 [facility] Comment on above: Performed By: #### Uzair COSBY 34075-5, HA1C #### [facility] ([id number]) [address], [address] [place] [address] HGB A1C (GLYCO-HGB)on 2023 Glucose [Mass/Vol] 114 mg/dL Normal [facility] Comment on above: Performed By: #### Uzair COSBY, 09315-6, MARVA1C #### [facility] ([id number]) [address], [facility] [address] [place] [address] HbA1c (Bld) [Mass fraction] 5.6 % Normal 4.4-5.6 [facility] Comment on above: Result Comment: NOTE ADA Guidelines Result HgbA1c Normal : less than 5.7 % Prediabetes : 5.7 % to 6.4 % Diabetes : > 6.4 % Use with caution in patients with abnormal hemoglobin variants as the half-life of red blood cells and in vivo glycation rates are affected. Performed By: #### Uzair COSBY, 09106-3, HA1C #### [facility] ([id number]) [address], [address] [place] [address] Lipid 1996 panelon 4 Cholesterol [Mass/Vol] 88 mg/dL Low 150-200 [facility] Comment on above: Performed By: #### Uzair COSBY, 79846-9, ALANNAH #### [facility] ([id number]) [address], [address] [place] [address] Cholesterol in HDL [Mass/Vol] 38 mg/dL Low >39 [facility] Comment on above: Result Comment: HDL <40 mg/dL - High Risk HDL > or = 40mg/dL- Desirable HDL >60 mg/dL - Negative Risk Performed By: #### Uzair COSBY, 25655-2, HASanti #### [facility] ([id number]) [address], [address] [place] [address] Cholesterol in LDL [Mass/Vol] 33 mg/dL Normal <130 [facility] Comment on above: Result Comment: LDL <100 mg/dL - Desirable LDL >160 mg/dL - High Risk Performed By: #### Uzair COSBY, 36458-6, HA1C #### [facility] ([id number]) [address], [address] [place] [address] Cholesterol in VLDL [Mass/Vol] 17 mg/dL Normal 0-30 [facility] Comment on above: Performed By: #### Uzair COSBY, 20695-3, ALANNAH #### [facility] ([id number]) [address], [address] [place] [address] CHOLESTEROL:HDL 2.3 Normal 1.0-5.0 [facility] Comment on above: Performed By: #### C ALEA, 61100-2, HA1C #### [facility] ([id number]) [address] [place] [address] Triglyceride [Mass/Vol] 83 mg/dL Normal 27-150 [facility] Comment on above: Performed By: #### C ALEA, 79149-0, HA1C #### [facility] ([id number]) [address] [place] [address] MICROALBUMIN - ALBUMIN:CREAT ININE URINE RATIOon 08-02-2023 ALB/CREAT RATIO 400.0 mg/g creat High 0.0-30.0 [facility] Comment on above: Performed By: #### M ALBU #### [facility] ([id number]) [address] [facility], [address] [place] [address] Albumin DL <= 20 mg/L (U) [Mass/Vol] 29.5 mg/dL High 0.0-1.9 [facility] Comment on above: Performed By: #### M ALBU #### [facility] ([id number]) [address] [facility], [address] [place] [address] URINE CREAT 73.75 mg/dL Normal [facility] Comment on above: Performed By: #### M ALBU #### [facility] ([id number]) [address], [address] [place] [address] Ray 04-19-2023 L Specimen: [id number] Received: 04/20/23 Status: SOUT Req Num: [id number] Spec Type: Surgical Subm Dr: Salina Lee DPM, MS Tissues: A Bone Fragments - Other than Path Fracture (LT LATERAL MALLEOLUS) Procedures: HE, Gross/Micro L3, Decalcification Age/ Patient Sex Location Account Attending Physician Anai Goodman 67/M LABELL [id number] Salina Lee DPM, MS SPEC NUM: [id number] RECD: 04/20/23 STATUS: SASHA PULIDOSandy NUM: [id number] KARIME: 04/19/23-[address]: Salina Lee DPM, MS ENTERED: 04/20/[address] [facility] [address]: Gin Gimenez SPEC TYPE: Surgical DEPT: [...] in one cassette labeled A1. CPT Codes 34579, 56534 -------- -------- Specimen: [id number] Received: 04/20/23 Status: MINEKevin Matta Num: [id number] Spec Type: Surgical Subm Dr: Salina Lee DPM, MS Tissues: A Bone Fragments - Other than Path Fracture (LT LATERAL MALLEOLUS) Procedures: HARRISON, Gross/Micro L3, Decalcification -------- Patient: Anai Goodman [id number] (Continued) -------- Signed (signature on file) Aniket Krishnamurthy MD 04/23/232202 [facility] POCT EKGon 04-12-2023 [facility] MR ANKLE LT W WO CONTon MR [...] Bennett MD on 04/05/2023 8:50 AM Normal [facility] CBC AND AUTO DIFFon 03-22-20 ABSOLUTE BASOPHIL 0.0 X10E9/L Normal 0.0-0.2 [facility] Comment on above: Performed By: #### C BCA, CMP, 03723-5, 3083- #### [facility] ([id number]) [address], [address] [place] [address] ABSOLUTE NEUTROPHIL 8.3 X10E9/L High 1.5-6.[address] [facility] Comment on above: Performed By: #### C BCA, CMP, 46406-0, 3083- #### [facility] ([id number]) [address], [address] [place] [address] Basophils/100 WBC (Bld) 0.3 % Normal [facility] Comment on above: Performed By: #### C BCA, CMP, , 3083-04 #### [facility] ([id number]) [address], [address] [place] [address] Eosinophils (Bld) [#/Vol] 0.4 10*3/uL Normal 0.0-0.4 [facility] Comment on above: Performed By: #### C BCA, CMP, 20001-1, 3083-04 #### [facility] ([id number]) [address], [address] [place] [address] Eosinophils/100 WBC (Bld) 4.0 % Normal [facility] Comment on above: Performed By: #### C BCA, CMP, 55220-1, 3083-04 #### [facility] ([id number]) [address], [address] [place] [address] Erythrocyte distribution width (RBC) [Ratio] 14.5 % Normal 11.5-15.0 [facility] Comment on above: Performed By: #### C BCA, CMP, 97224-3, 3083- #### [facility] ([id number]) [address] [address] [place] [address] Hematocrit (Bld) [Volume fraction] 45.0 % Normal 39-49 [facility] Comment on above: Performed By: #### C BCA, CMP, 02537-9, 3083- #### [facility] ([id number]) [address] [address] [place] [address] Hemoglobin (Bld) [Mass/Vol] 15.2 g/dL Normal 13.0-17.0 [facility] Comment on above: Performed By: #### C BCA, CMP, 70669-8, 3083-04 #### [facility] ([id number]) [address] [address] [place] [address] Lymphocytes (Bld) [#/Vol] 0.8 10*3/uL Low 1.0-3.5 [facility] Comment on above: Performed By: #### C BCA, CMP, 16208-4, 3083-04 #### [facility] ([id number]) [address] [address] [place] [address] Lymphocytes/100 WBC (Bld) 8.1 % Normal [facility] Comment on above: Performed By: #### C BCA, CMP, 85149-1, 3083-04 #### [facility] ([id number]) [address], [address] [place] [address] MCH (RBC) [Entitic mass] 30.6 pg Normal 27-34 [facility] Comment on above: Performed By: #### C BCA, CMP, 78466-8, 3083- #### [facility] ([id number]) [address], [address] [place] [address] MCHC (RBC) [Mass/Vol] 33.7 g/dL Normal 32-36 [facility] Comment on above: Performed By: #### C BCA, CMP, 31517-1, 3083-04 #### [facility] ([id number]) [address], [address] [place] [address] MCV (RBC) [Entitic vol] 91 fL Normal 80-100 [facility] Comment on above: Performed By: #### C BCA, CMP, 49025-6, 3083-04 #### [facility] ([id number]) [address], [address] [place] [address] Monocytes (Bld) [#/Vol] 0.8 10*3/uL Normal 0-0.9 [facility] Comment on above: Performed By: #### C BCA, CMP, 25236-3, 3083-04 #### [facility] ([id number]) [address], [address] [place] [address] Monocytes/100 WBC (Bld) 7.5 % Normal [facility] Comment on above: Performed By: #### C BCA, CMP, , 3083-04 #### [facility] ([id number]) [address], [address] [place] [address] Neutrophils/100 WBC (Bld) 80.1 % Normal [facility] Comment on above: Performed By: #### Uzair BCA, CMP, 14292-2, 3083-04 #### [facility] ([id number]) [address], [address] [place] [address] Platelet mean volume (Bld) [Entitic vol] 9.0 fL Normal 7-12 [facility] Comment on above: Performed By: #### C BCA, CMP, 24543-6, 3083- #### [facility] ([id number]) [address], [address] [place] [address] Platelets (Bld) [#/Vol] 205 10*3/uL Normal 150-450 [facility] Comment on above: Performed By: #### C BCA, CMP, 72200-7, 308- #### [facility] ([id number]) [address], [address] [place] [address] RBC COUNT 4.95 X10E12/L Normal 4.10-5.70 [facility] Comment on above: Performed By: #### C BCA, CMP, 69254-2, 308- #### [facility] ([id number]) [address], [address] [place] [address] WBC (Bld) [#/Vol] 10.4 10*3/uL Normal 4.0-11.0 [facility] Comment on above: Performed By: #### C BCA, CMP, 20682-9, 3083- #### [facility] ([id number]) [address] [place] [address] COMPREHENSIVE METABOLIC PANE [facility] 03-22-2023 Albumin [Mass/Vol] 4.3 g/dL Normal 3.2-5.3 [facility] Comment on above: Performed By: #### C BCA, CMP, 97179-5, 3083- #### [facility] ([id number]) [address], [address] [place] [address] ALP [Catalytic activity/Vol] 91 U/L Normal 39-130 [facility] Comment on above: Performed By: #### C BCA, CMP, 90701-8, 3083- #### [facility] ([id number]) [address], [address] [place] [address] ALT [Catalytic activity/Vol] 36 U/L Normal 0-40 [facility] Comment on above: Performed By: #### C BCA, CMP, 90738-5, 308-1 #### [facility] ([id number]) [address] [address] [place] [address] Anion gap [Moles/Vol] 7 mmol/L Normal 5-15 [facility] Comment on above: Performed By: #### C BCA, CMP, 52241-2, 3083- #### [facility] ([id number]) [address], [address] [place] [address] AST [Catalytic activity/Vol] 32 U/L Normal 0-41 [facility] Comment on above: Performed By: #### C BCA, CMP, 53562-8, 3083- #### [facility] ([id number]) [address], [address] [place] [address] Bilirubin [Mass/Vol] 0.8 mg/dL Normal 0.3-1.[address] [facility] Comment on above: Performed By: #### C BCA, CMP, 86722-6, 3083- #### [facility] ([id number]) [address], [address] [place] [address] Calcium [Mass/Vol] 10.2 mg/dL Normal 8.5-10.5 [facility] Comment on above: Performed By: #### C BCA, CMP, 55585-7, 3083- #### [facility] ([id number]) [address], [address] [place] [address] Chloride [Moles/Vol] 96 mmol/L Low 98-[address] [facility] Comment on above: Performed By: #### C BCA, CMP, 27170-5, 3083- #### [facility] ([id number]) [address], [address] [place] [address] CO2 [Moles/Vol] 33 mmol/L High 22-32 [facility] Comment on above: Performed By: #### C BCA, CMP, 40100-3, 3083- #### [facility] ([id number]) [address], [address] [place] [address] Creatinine [Mass/Vol] 1.61 mg/dL High 0.60-1.30 [facility] Comment on above: Result Comment: METH OD TRACEABLE TO IDMS STANDARD Performed By: #### C JAYDON, CMP, , 3083-04 #### [facility] ([id number]) [address], [address] [place] [address] GFR/1.73 sq M.predicted among non-blacks MDRD (S/P/Bld) [Vol rate/Area] 47 mL/min/{1.73_m2} Low >59 [facility] Comment on above: Result Comment: Reported eGFR is based on the CKD-EPI 2020 equation that does not use a race coefficient. Performed By: #### C JAYDON CMP, , 3083-04 #### [facility] ([id number]) [address], [address] [place] [address] Glucose [Mass/Vol] 77 mg/dL Normal 65-99 [facility] Comment on above: Performed By: #### C JAYDON, CMP, , 3083-04 #### [facility] ([id number]) [address] [address] [place] [address] Potassium [Moles/Vol] 4.4 mmol/L Normal 3.5-5.0 [facility] Comment on above: Performed By: #### C BCA, CMP, , 3083-04 #### [facility] ([id number]) [address] [address] [place] [address] Protein [Mass/Vol] 7.6 g/dL Normal 6.0-8.0 [facility] Comment on above: Performed By: #### C BCA, CMP, 60918-1, 3083-04 #### [facility] ([id number]) [address], [address] [place] [address] Sodium [Moles/Vol] 136 mmol/L Normal 134-146 [facility] Comment on above: Performed By: #### C BCA, CMP, 86172-8, 3083-04 #### [facility] ([id number]) [address], [address] [place] [address] Urea nitrogen [Mass/Vol] 37 mg/dL High 5-27 [facility] Comment on above: Performed By: #### C CARMINE INTERIANO, 15001-5, 3083- #### [facility] ([id number]) [address], [address] [place] [address] HGB A1C (GLYCO-HGB)on 2022 Glucose [Mass/Vol] 143 mg/dL Normal [facility] Comment on above: Performed By: #### C CARMINE INTERIANO, , 3083-04 #### [facility] ([id number]) [address], [address] [place] [address] HbA1c (Bld) [Mass fraction] 6.6 % High 4.4-5.6 [facility] Comment on above: Result Comment: NOTE ADA Guidelines Result HgbA1c Normal : less than 5.7 % Prediabetes : 5.7 % to 6.4 % Diabetes : > 6.4 % Use with caution in patients with abnormal hemoglobin variants as the half-life of red blood cells and in vivo glycation rates are affected. Performed By: #### C CARMINE INTERIANO, , 3083-04 #### [facility] ([id number]) [address], [address] [place] [address] Lipid 1996 panelon 3 Cholesterol [Mass/Vol] 85 mg/dL Low 150-200 [facility] Comment on above: Performed By: #### C CARMINE INTERIANO, , 3083-04 #### [facility] ([id number]) [address], [address] [place] [address] Cholesterol in HDL [Mass/Vol] 36 mg/dL Low >39 [facility] Comment on above: Result Comment: HDL <40 mg/dL - High Risk HDL > or = 40mg/dL- Desirable HDL >60 mg/dL - Negative Risk Performed By: #### C BCA, CMP, 47062-3, 3084-1 #### [facility] ([id number]) [address], [address] [place] [address] Cholesterol in LDL [Mass/Vol] 34 mg/dL Normal <130 [facility] Comment on above: Result Comment: LDL <100 mg/dL - Desirable LDL >160 mg/dL - High Risk Performed By: #### C BCA, CMP, 64520-5, 3083-1 #### [facility] ([id number]) [address], [address] [place] [address] Cholesterol in VLDL [Mass/Vol] 15 mg/dL Normal 0-30 [facility] Comment on above: Performed By: #### C BCA, CMP, 52086-0, 308-1 #### [facility] ([id number]) [address], [address] [place] [address] CHOLESTEROL:HDL 2.4 Normal 1.0-5.0 [facility] Comment on above: Performed By: #### C BCA, CMP, 72559-2, 3084-1 #### [facility] ([id number]) [address], [address] [place] [address] Triglyceride [Mass/Vol] 75 mg/dL Normal 27-150 [facility] Comment on above: Performed By: #### C BCA, CMP, 53239-3, 3084-1 #### [facility] ([id number]) [address] [place] [address] URIC ACIDon 03-22-2023 Urate [Mass/Vol] 8.0 mg/dL High 2.6-7.2 [facility] Comment on above: Performed By: #### C BCA, CMP, 21168-3, 3084-1 #### [facility] ([id number]) [address] [place] [address] XR cervical spine 2Von 10-05 XR cervical spine 2V [facility] [place] [address] [place] [address] XRay Report Signed Patient: Anai [place] MR#: [id number] : 1955 Acct:[id number] Age/Sex: 66 / M ADM Date: 10/05/22 Loc: XD Room: Type: [facility] Attending Dr: Dung Serna MD Copies to: [...] Jose Sanabria M.D.10/05/2022 12:36 PM Dictation Location: [place] [address] Transcribed By: [facility] 10/05/22 1236 Dictated By: Jose Sanabria DO 10/05/22 1233 Signed By: 10/05/22 1236 Normal [facility] Basophils Auto (Bld) [#/Vol] Ordered By: Spenser Elaine on 11-29-2021 Basophils (Bld) [#/Vol] 0.0 10*3/uL 0.0-0.2 [facility] Basophils/100 WBC Auto (Bld) Ordered By: Spenser Elaine on 11-29-2021 Basophils/100 WBC (Bld) 0.5 % . [facility] Blood hemoglobin measurement (mass/volume)Ordered By: Spenser Elaine on 11-29-2021 Hemoglobin (Bld) [Mass/Vol] 12.6 g/dL 13.0-17.0 [facility] Blood leukocytes automated c ount (number/volume)Ordered By: Spenser Elaine on 11-29-2021 WBC (Bld) [#/Vol] 6.8 10*3/uL 4.5-11.0 [facility] COVID CepheidOrdered By: Junior Cortes on 11-29-2021 SARS-CoV-2 (COVID-19) Ab IA Ql Negative Negative [facility] Comment on above: This is a duplicate GVISP 1 Xpert Xpress CoV-2/Flu/RSV Plus RNA by RT-PCR result to be used for statistical tracking purpose only. SARS-CoV-2 (COVID-19) RNA MEREDITH+probe Ql (Unsp spec) [facility] Creatinine and Glomerular fi ltration rate.predicted panel (S/P/Bld)Ordered By: Spenser Elaine on 11-29-2021 Creatinine [Mass/Vol] 1.38 mg/dL 0.64-1.27 [facility] Eosinophils Auto (Bld) [#/Vo l]Ordered By: Spenser Elaine on 11-29-2021 Eosinophils (Bld) [#/Vol] 0.5 10*3/uL 0.0-0.45 [facility] Eosinophils/100 WBC Auto (Bl d)Ordered By: Spenser Elaine on 11-29-2021 Eosinophils/100 WBC (Bld) 7.5 % . [facility] Erythrocyte distribution wid th Auto (RBC) [Ratio]Ordered By: Spenser Elaine on 11-29-2021 Erythrocyte distribution width (RBC) [Ratio] 15.7 % 12.0-14.8 [facility] Estimated glomerular filtrat ion rate (GFR) non- AmericanOrdered By: Spenser Elaine on 11-29-2021 GFR/1.73 sq M.predicted among non-blacks MDRD (S/P/Bld) [Vol rate/Area] 52 mL/Min [facility] Glucose Glucometer (BldC) [M ass/Vol]Ordered By: Reddy Brandt on 11-29-2021 Glucose [Mass/Vol] 141 mg/dL [facility] Comment on above: Random Glucose Refer ence Range is dependent on time and content of last meal. Glucose of more than 200 mg/dL in a nonstressed, ambulatory subject supports the diagnosis of Diabetes Mellitus. Hematocrit Auto (Bld) [Volum e fraction]Ordered By: Spenser Elaine on 11-29-2021 Hematocrit (Bld) [Volume fraction] 38.3 % 38.8-50.0 [facility] Laboratory - Hematology and Cell countsOrdered By: Spenser Elaine on 11-29-2021 Nucleated RBC/100 WBC (Bld) [Ratio] 0.0 % 0-0.5 [facility] - Microbiology an d Antimicrobial susceptibilityOrdered By: César Cortes on 11-29-2021 SARS-CoV-2 (COVID-19) RNA MEREDITH+probe Ql (Unsp spec) N/A [facility] Lymphocytes Auto (Bld) [#/Vo l]Ordered By: Spenser Elaine on 11-29-2021 Lymphocytes (Bld) [#/Vol] 0.6 10*3/uL 1.00-4.8 [facility] Lymphocytes/100 WBC Auto (Bl d)Ordered By: Spenser Elaine on 11-29-2021 Lymphocytes/100 WBC (Bld) 9.0 % . [facility] MCH Auto (RBC) [Entitic mass ]Ordered By: Spenser Elaine on 11-29-2021 MCH (RBC) [Entitic mass] 27.6 pg 27.5-35.2 [facility] MCHC Auto (RBC) [Mass/Vol]Or dered By: Spenser Elaine on 11-29-2021 MCHC (RBC) [Mass/Vol] 32.8 g/dL 32.5-35.6 [facility] MCV Auto (RBC) [Entitic vol] Ordered By: Spenser Elaine on 11-29-2021 MCV (RBC) [Entitic vol] 84.3 fL 83.5-101 [facility] Monocytes Auto (Bld) [#/Vol] Ordered By: Spenser Elaine on 11-29-2021 Monocytes (Bld) [#/Vol] 0.7 10*3/uL 0.0-0.8 [facility] Monocytes/100 WBC Auto (Bld) Ordered By: Spenser Elaine on 11-29-2021 Monocytes/100 WBC (Bld) 10.9 % . [facility] Neutrophils Auto (Bld) [#/Vo l]Ordered By: Spenser Elaine on 11-29-2021 Neutrophils (Bld) [#/Vol] 4.9 10*3/uL 1.8-7.7 [facility] Neutrophils/100 WBC Auto (Bl d)Ordered By: Spenser Elaine on 11-29-2021 Neutrophils/100 WBC (Bld) 72.1 % . [facility] No Panel InformationOrdered By: Reddy Brandt on 11-29-2021 Bedside Glucose Comment Glu2: cleaned meter [facility] No Panel InformationOrdered By: Spenser Elaine on 11-29-2021 Estimated GFR () > 60 mL/Min [facility] Comment on above: GFR estimated refere nce range: According to KDOQI guidelines, <60 ml/min/1.73m2 is sufficient to diagnose a patient with chronic kidney disease. Pharmacy Creatinine Clearance (Chem 66.84 [facility] Platelet mean volume Auto (B ld) [Entitic vol]Ordered By: Spenser Elaine on 11-29-2021 Platelet mean volume (Bld) [Entitic vol] 9.3 fL 6.6-10.1 [facility] Platelets Auto (Bld) [#/Vol] Ordered By: Spenser Elaine on 11-29-2021 Platelets (Bld) [#/Vol] 142 10*3/uL 150-450 [facility] RBC Auto (Bld) [#/Vol]Ordere d By: Spenser Elaine on 11-29-2021 RBC (Bld) [#/Vol] 4.54 10*6/uL 3.90-5.60 [facility] Serum or plasma anion gap de terminationOrdered By: Spenser Elaine on 11-29-2021 Anion gap [Moles/Vol] 12.0 mmol/L 6.0-15.[address] [facility] Serum or plasma calcium sergei urement (mass/volume)Ordered By: Spenser Elaine on 11-29-2021 Calcium [Mass/Vol] 10.0 mg/dL 8.2-10.2 [facility] Serum or plasma chloride zofia surement (moles/volume)Ordered By: Spenser Elaine on 11-29-2021 Chloride [Moles/Vol] 100 mmol/L 95-114 [facility] Serum or plasma glucose sergei urement (mass/volume)Ordered By: Spenser Elaine on 11-29-2021 Glucose [Mass/Vol] 130 mg/dL 70-100 [facility] [...] on 11-29-2021 Potassium [Moles/Vol] 4.0 mmol/L 3.5-5.1 [facility] Serum or plasma sodium measu rement (moles/volume)Ordered By: Spenser Elaine on 11-29-2021 Sodium [Moles/Vol] 138 mmol/L 136-146 [facility] Serum or plasma total carbon dioxide measurement (moles/volume)Ordered By: Spenser Elaine on 11-29-2021 CO2 [Moles/Vol] 30.0 mmol/L 22.0-30.0 [facility] Serum or plasma urea nitroge n measurement (mass/volume)Ordered By: Spenser Elaine on 11-29-2021 Urea nitrogen [Mass/Vol] 22 mg/dL 9-23 [facility] Glucose Glucometer (BldC) [M ass/Vol]Ordered By: Reddy Brandt on 11-03-2021 Glucose [Mass/Vol] 174 mg/dL [facility] Comment on above: Random Glucose Refer ence Range is dependent on time and content of last meal. Glucose of more than 200 mg/dL in a nonstressed, ambulatory subject supports the diagnosis of Diabetes Mellitus. No Panel InformationOrdered By: Reddy Brandt on 11-03-2021 Bedside Glucose Comment Glu2: cleaned meter [facility] COVID-19 Positive/NegativeOr dered By: Reddy Brandt on 11-02-2021 SARS-CoV-2 (COVID-19) N gene MEREDITH+probe Ql (Resp) Negative Negative [facility] Comment on above: Testing for SARS-CoV -2 by RT-PCR This test was developed and its performance characteristics determined by [employer] ([employer]) and validated at the [facility]. This test has not been FDA [...] developed and its performance characteristics determined by [employer]) and validated at the [facility]. This test has not been FDA [...] Kaye on 10-27-2021 Glucose [Mass/Vol] 166 mg/dL [facility] Comment on above: Random Glucose Refer ence Range is dependent on time and content of last meal. Glucose of more than 200 mg/dL in a nonstressed, ambulatory subject supports the diagnosis of Diabetes Mellitus. No Panel InformationOrdered By: Ghanshyam Kaye on 10-27-2021 Bedside Glucose Comment Glu2: cleaned meter [facility] Basophils Auto (Bld) [#/Vol] Ordered By: Chante Narayan on 10-25-2021 Basophils (Bld) [#/Vol] 0.0 10*3/uL 0.0-0.2 [facility] Basophils/100 WBC Auto (Bld) Ordered By: Chante Narayan on 10-25-2021 Basophils/100 WBC (Bld) 0.3 % . [facility] Blood hemoglobin measurement (mass/volume)Ordered By: Chante Narayan on 10-25-2021 Hemoglobin (Bld) [Mass/Vol] 11.2 g/dL 13.0-17.0 [facility] Blood leukocytes automated c ount (number/volume)Ordered By: Chante Narayan on 10-25-2021 WBC (Bld) [#/Vol] 5.7 10*3/uL 4.5-11.0 [facility] Creatinine and Glomerular fi ltration rate.predicted panel (S/P/Bld)Ordered By: Chante Narayan on 10-25-2021 Creatinine [Mass/Vol] 1.24 mg/dL 0.64-1.27 [facility] Eosinophils Auto (Bld) [#/Vo l]Ordered By: Chante Narayan on 10-25-2021 Eosinophils (Bld) [#/Vol] 0.4 10*3/uL 0.0-0.45 [facility] Eosinophils/100 WBC Auto (Bl d)Ordered By: Chante Narayan on 10-25-2021 Eosinophils/100 WBC (Bld) 6.7 % . [facility] Erythrocyte distribution wid th Auto (RBC) [Ratio]Ordered By: Chante Narayan on 10-25-2021 Erythrocyte distribution width (RBC) [Ratio] 17.6 % 12.0-14.8 [facility] Estimated glomerular filtrat ion rate (GFR) non- AmericanOrdered By: Chante Narayan on 10-25-2021 GFR/1.73 sq M.predicted among non-blacks MDRD (S/P/Bld) [Vol rate/Area] 59 mL/Min [facility] Hematocrit Auto (Bld) [Volum e fraction]Ordered By: Chante Narayan on 10-25-2021 Hematocrit (Bld) [Volume fraction] 33.0 % 38.8-50.0 [facility] Laboratory - Hematology and Cell countsOrdered By: Chante Narayan on 10-25-2021 Nucleated RBC/100 WBC (Bld) [Ratio] 0.1 % 0-0.5 [facility] Lymphocytes Auto (Bld) [#/Vo l]Ordered By: Chante Narayan on 10-25-2021 Lymphocytes (Bld) [#/Vol] 0.5 10*3/uL 1.00-4.8 [facility] Lymphocytes/100 WBC Auto (Bl d)Ordered By: Chante Narayan on 10-25-2021 Lymphocytes/100 WBC (Bld) 9.4 % . [facility] MCH Auto (RBC) [Entitic mass ]Ordered By: Chante Narayan on 10-25-2021 MCH (RBC) [Entitic mass] 29.3 pg 27.5-35.2 [facility] MCHC Auto (RBC) [Mass/Vol]Or dered By: Chante Narayan on 10-25-2021 MCHC (RBC) [Mass/Vol] 33.8 g/dL 32.5-35.6 [facility] MCV Auto (RBC) [Entitic vol] Ordered By: Chante Narayan on 10-25-2021 MCV (RBC) [Entitic vol] 86.7 fL 83.5-101 [facility] Monocytes Auto (Bld) [#/Vol] Ordered By: Chante Narayan on 10-25-2021 Monocytes (Bld) [#/Vol] 0.8 10*3/uL 0.0-0.8 [facility] Monocytes/100 WBC Auto (Bld) Ordered By: Chante Narayan on 10-25-2021 Monocytes/100 WBC (Bld) 14.5 % . [facility] Neutrophils Auto (Bld) [#/Vo l]Ordered By: Chante Narayan on 10-25-2021 Neutrophils (Bld) [#/Vol] 4.0 10*3/uL 1.8-7.7 [facility] Neutrophils/100 WBC Auto (Bl d)Ordered By: Chante Narayan on 10-25-2021 Neutrophils/100 WBC (Bld) 69.1 % . [facility] No Panel InformationOrdered By: Chante Narayan on 10-25-2021 Estimated GFR () > 60 mL/Min [facility] Comment on above: GFR estimated refere nce range: According to KDOQI guidelines, <60 ml/min/1.73m2 is sufficient to diagnose a patient with chronic kidney disease. Pharmacy Creatinine Clearance (Chem 60.35 [facility] Platelet mean volume Auto (B ld) [Entitic vol]Ordered By: Chante Narayan on 10-25-2021 Platelet mean volume (Bld) [Entitic vol] 8.6 fL 6.6-10.1 [facility] Platelets Auto (Bld) [#/Vol] Ordered By: Chante Narayan on 10-25-2021 Platelets (Bld) [#/Vol] 159 10*3/uL 150-450 [facility] RBC Auto (Bld) [#/Vol]Ordere d By: Chante Narayan on 10-25-2021 RBC (Bld) [#/Vol] 3.81 10*6/uL 3.90-5.60 [facility] Serum or plasma calcium sergei urement (mass/volume)Ordered By: Chante Narayan on 10-25-2021 Calcium [Mass/Vol] 9.1 mg/dL 8.2-10.2 [facility] Serum or plasma chloride zofia surement (moles/volume)Ordered By: Chante Narayan on 10-25-2021 Chloride [Moles/Vol] 102 mmol/L 95-114 [facility] Serum or plasma glucose sergei urement (mass/volume)Ordered By: Chante Narayan on 10-25-2021 Glucose [Mass/Vol] 176 mg/dL 70-100 [facility] Comment on above: ADA recommended refe rence range Random Glucose Reference Range is dependent on time and content of last meal. Glucose of more than 200 mg/dL in a nonstressed, ambulatory subject supports the diagnosis of Diabetes Mellitus. Serum or plasma potassium me asurement (moles/volume)Ordered By: Chante Narayan on 10-25-2021 Potassium [Moles/Vol] 3.6 mmol/L 3.5-5.1 [facility] Serum or plasma sodium measu rement (moles/volume)Ordered By: Chante Narayan on 10-25-2021 Sodium [Moles/Vol] 136 mmol/L 136-146 [facility] Serum or plasma total carbon dioxide measurement (moles/volume)Ordered By: Chante Narayan on 10-25-2021 CO2 [Moles/Vol] 25.8 mmol/L 22.0-30.0 [facility] Serum or plasma urea nitroge n measurement (mass/volume)Ordered By: Chante Narayan on 10-25-2021 Urea nitrogen [Mass/Vol] 32 mg/dL 12-23 [facility] Albumin [Mass/volume] in Ser um or PlasmaOrdered By: Chante Narayan on 10-22-2021 Albumin [Mass/Vol] 3.1 g/dL 3.2-5.5 [facility] Globulin Calc (S) [Mass/Vol] Ordered By: Chante Narayan on 10-22-2021 Globulin (S) [Mass/Vol] 3.0 g/dL [facility] Protein [Mass/volume] in Ser um or PlasmaOrdered By: Chante Narayan on 10-22-2021 Protein [Mass/Vol] 6.1 g/dL 6.1-7.9 [facility] Serum or plasma alanine dasilva otransferase measurement without P-5'-P (enzymatic activiOrdered By: Chante Narayan on 10-22-2021 ALT No additional P-5'-P [Catalytic activity/Vol] 21 U/L 10-60 [facility] Serum or plasma albumin/glob ulin mass ratioOrdered By: Chante Narayan on 10-22-2021 Albumin/Globulin [Mass ratio] 1.0 {ratio} [facility] Serum or plasma alkaline bob sphatase measurement (enzymatic activity/volume)Ordered By: Chanet Narayan on 10-22-2021 ALP [Catalytic activity/Vol] 71 U/L 32-92 [facility] Serum or plasma aspartate am inotransferase measurement (enzymatic activity/volume)Ordered By: Chante Narayan on 10-22-2021 AST [Catalytic activity/Vol] 23 U/L 10-42 [facility] Serum or plasma prealbumin m easurement (mass/volume)Ordered By: Chante Narayan on 10-22-2021 Prealbumin [Mass/Vol] 19.4 mg/dL 18.0-38.0 [facility] Serum or plasma total biliru bin measurement (mass/volume)Ordered By: Chante Narayan on 10-22-2021 Bilirubin [Mass/Vol] 1.0 mg/dL 0.3-1.2 [facility] Bacteria identified Anaer cx Nom (Unsp spec)Ordered By: Reddy Brandt on 10-21-2021 Anaerobic microbial culture No Anaerobes Isolated 3 Days [facility] COVID-19 Positive/NegativeOr dered By: Reddy Brandt on 10-21-2021 SARS-CoV-2 (COVID-19) N gene MEREDITH+probe Ql (Resp) Negative Negative [facility] Comment on above: Testing for SARS-CoV -2 by RT-PCR This test was developed and its performance characteristics determined by [employer] ([employer]) and validated at the [facility]. This test has not been FDA [...] Brandt on 10-21-2021 Glucose [Mass/Vol] 298 mg/dL [facility] Comment on above: Random Glucose Refer ence Range is dependent on time and content of last meal. Glucose of more than 200 mg/dL in a nonstressed, ambulatory subject supports the diagnosis of Diabetes Mellitus. No Panel InformationOrdered By: Reddy Brandt on 10-21-2021 Bedside Glucose Comment Glu2: cleaned meter [facility] Bedside Glucose #2 Comment Cleaned meter [facility] ABO and Rh group post transf usion reaction Nom (Bld)Ordered By: Reddy Brandt on 10-19-2021 Microscopic observation Gram stain Nom (Unsp spec) [facility] COVID-19 Positive/NegativeOr dered By: Reddy Brandt on 10-14-2021 SARS-CoV-2 (COVID-19) N gene MEREDITH+probe Ql (Resp) Negative Negative [facility] Comment on above: Testing for SARS-CoV -2 by RT-PCR This test was developed and its performance characteristics determined by [employer] ([employer]) and validated at the [facility]. This test has not been FDA [...] (Bld) [#/Vol] 0.0 10*3/uL 0.0-0.2 [facility] Basophils/100 WBC Auto (Bld) Ordered By: Reddy Brandt on 10-06-2021 Basophils/100 WBC (Bld) 0.6 % . [facility] Blood hemoglobin measurement (mass/volume)Ordered By: Reddy Brandt on 10-06-2021 Hemoglobin (Bld) [Mass/Vol] 13.7 g/dL 13.0-17.0 [facility] Blood leukocytes automated c ount (number/volume)Ordered By: Reddy Brandt on 10-06-2021 WBC (Bld) [#/Vol] 7.8 10*3/uL 4.5-11.0 [facility] Creatinine and Glomerular fi ltration rate.predicted panel (S/P/Bld)Ordered By: Reddy Brandt on 10-06-2021 Creatinine [Mass/Vol] 1.76 mg/dL 0.64-1.27 [facility] Eosinophils Auto (Bld) [#/Vo l]Ordered By: Redyd Brandt on 10-06-2021 Eosinophils (Bld) [#/Vol] 0.4 10*3/uL 0.0-0.45 [facility] Eosinophils/100 WBC Auto (Bl d)Ordered By: Reddy Brandt on 10-06-2021 Eosinophils/100 WBC (Bld) 4.9 % . [facility] Erythrocyte distribution wid th Auto (RBC) [Ratio]Ordered By: Reddy Brandt on 10-06-2021 Erythrocyte distribution width (RBC) [Ratio] 18.8 % 12.0-14.8 [facility] Erythrocyte sedimentation ra te by Photometric methodOrdered By: Reddy Brandt on 10-06-2021 ESR Photometric method (Bld) [Velocity] 21 mm/hr 0-19 [facility] Estimated glomerular filtrat ion rate (GFR) non- AmericanOrdered By: Reddy Brandt on 10-06-2021 GFR/1.73 sq M.predicted among non-blacks MDRD (S/P/Bld) [Vol rate/Area] 39 mL/Min [facility] Glucose mean value [Mass/vol ume] in Blood Estimated from glycated hemoglobinOrdered By: Reddy Brandt on 10-06-2021 Average glucose Estimated from glycated hemoglobin (Bld) [Mass/Vol] 163 mg/dL [facility] Hematocrit Auto (Bld) [Volum e fraction]Ordered By: Reddy Brandt on 10-06-2021 Hematocrit (Bld) [Volume fraction] 41.1 % 38.8-50.0 [facility] Hemoglobin A1c percentageOrd ered By: Reddy Brandt on 10-06-2021 HbA1c (Bld) [Mass fraction] 7.3 % 4.3-5.6 [facility] Comment on above: Increased risk for d iabetes: 5.7 - 6.4 diabetes: >6.4 glycemic control for adults with diabetes: <7.0 Laboratory - Hematology and Cell countsOrdered By: Reddy Brandt on 10-06-2021 Nucleated RBC/100 WBC (Bld) [Ratio] 0.0 % 0-0.5 [facility] Lymphocytes Auto (Bld) [#/Vo l]Ordered By: Reddy Brandt on 10-06-2021 Lymphocytes (Bld) [#/Vol] 0.8 10*3/uL 1.00-4.8 [facility] Lymphocytes/100 WBC Auto (Bl d)Ordered By: Reddy Brandt on 10-06-2021 Lymphocytes/100 WBC (Bld) 10.9 % . [facility] MCH Auto (RBC) [Entitic mass ]Ordered By: Reddy Brandt on 10-06-2021 MCH (RBC) [Entitic mass] 28.8 pg 27.5-35.2 [facility] MCHC Auto (RBC) [Mass/Vol]Or dered By: Reddy Brandt on 10-06-2021 MCHC (RBC) [Mass/Vol] 33.3 g/dL 32.5-35.6 [facility] MCV Auto (RBC) [Entitic vol] Ordered By: Reddy Brandt on 10-06-2021 MCV (RBC) [Entitic vol] 86.3 fL 83.5-101 F [facility] Monocytes Auto (Bld) [#/Vol] Ordered By: Reddy Brandt on 10-06-2021 Monocytes (Bld) [#/Vol] 0.9 10*3/uL 0.0-0.8 [facility] Monocytes/100 WBC Auto (Bld) Ordered By: Reddy Brandt on 10-06-2021 Monocytes/100 WBC (Bld) 11.8 % . F [facility] Neutrophils Auto (Bld) [#/Vo l]Ordered By: Reddy Brandt on 10-06-2021 Neutrophils (Bld) [#/Vol] 5.6 10*3/uL 1.8-7.7 [facility] Neutrophils/100 WBC Auto (Bl d)Ordered By: Reddy Brandt on 10-06-2021 Neutrophils/100 WBC (Bld) 71.8 % . [facility] No Panel InformationOrdered By: Reddy Brandt on 10-06-2021 Estimated GFR () 48 mL/Min [facility] Comment on above: GFR estimated refere nce range: According to KDOQI guidelines, <60 ml/min/1.73m2 is sufficient to diagnose a patient with chronic kidney disease. Pharmacy Creatinine Clearance (Chem N/A [facility] Platelet mean volume Auto (B ld) [Entitic vol]Ordered By: Reddy Brandt on 10-06-2021 Platelet mean volume (Bld) [Entitic vol] 9.1 fL 6.6-10.1 [facility] Platelets Auto (Bld) [#/Vol] Ordered By: Reddy Brandt on 10-06-2021 Platelets (Bld) [#/Vol] 131 10*3/uL 150-450 [facility] RBC Auto (Bld) [#/Vol]Ordere d By: Reddy Brandt on 10-06-2021 RBC (Bld) [#/Vol] 4.77 10*6/uL 3.90-5.60 [facility] Serum or plasma C reactive p rotein measurement (mass/volume)Ordered By: Reddy Brandt on 10-06-2021 CRP [Mass/Vol] 0.5 mg/dL 0.0-1.0 [facility] Serum or plasma chloride zofia surement (moles/volume)Ordered By: Reddy Brandt on 10-06-2021 Chloride [Moles/Vol] 93 mmol/L 95-114 [facility] Serum or plasma potassium me asurement (moles/volume)Ordered By: Reddy Brandt on 10-06-2021 Potassium [Moles/Vol] 3.8 mmol/L 3.5-5.1 [facility] Serum or plasma sodium measu rement (moles/volume)Ordered By: Reddy Brandt on 10-06-2021 Sodium [Moles/Vol] 139 mmol/L 136-146 [facility] Serum or plasma total carbon dioxide measurement (moles/volume)Ordered By: Reddy Brandt on 10-06-2021 CO2 [Moles/Vol] 31.4 mmol/L 22.0-30.0 [facility] Serum or plasma urea nitroge n measurement (mass/volume)Ordered By: Reddy Brandt on 10-06-2021 Urea nitrogen [Mass/Vol] 52 mg/dL 9-23 [facility] WOUND CULTUREon 09-12-2021 Bacteria identified Aer cx Nom (Unsp spec) Final report Normal [facility] Comment on above: Performed By: #### C XWND ####[facility] [address] [place] [address]Dr. Anjali Reagan Result 1 Mixed skin areli Normal [facility] Comment on above: Performed By: #### C XWND ####[facility] Gbqdqqazio[address] [place] [address]DrVeronica Reagan CBC AUTO DIFFon 09-09-2021 BASO # 0.0 103/ul Normal 0.0-0.1 [facility] Comment on above: Performed By: #### C BC ####[facility] Ltwb[address]itfo[address] [place] [id number]. Anjali Reagan Basophils/100 WBC (Bld) 0.6 % Normal 0.2-2.0 [facility] Comment on above: Performed By: #### C BC ####[facility] Vbhdtoliit9220 [place] [id number]. Anjali Reagan EO # 0.3 103/ul Normal 0.0-0.7 [facility] Comment on above: Performed By: #### C BC ####[facility] Uoaimipbfj32[address] [place] [address]Dr. Anjali Reagan Eosinophils/100 WBC (Bld) 4.1 % Normal 0.9-7.0 [facility] Comment on above: Performed By: #### C BC ####[facility] Fxlmzgrueq[address] [place], [place] [address]Dr. Anjali Reagan Erythrocyte distribution width (RBC) [Ratio] 16.1 % Critically high 11.0-15.0 [facility] Comment on above: Performed By: #### C BC ####[facility] [address] [place], [place] [id number]. Anjali Reagan Hematocrit (Bld) [Volume fraction] 38.3 % Critically low 42.0-54.0 [facility] Comment on above: Performed By: #### C BC ####[facility] R[address]mxuak[address] [place], [place] [address]Dr. Anjali Reagan Hemoglobin (Bld) [Mass/Vol] 12.0 g/dL Critically low 14.0-18.0 [facility] Comment on above: Performed By: #### C BC ####[facility] Wqkdnjfcvu[address] [place], [place] [address]Dr. Anjali Reagan IG # 0.04 10e3/ul Critically high 0.00-0.[address] [facility] Comment on above: Performed By: #### C BC ####[facility] V[address] [place], [place] [address]Dr. Anjali Reagan IG % 0.6 % Critically high 0.0-0.5 [facility] Comment on above: Performed By: #### C BC ####[facility] Qvmbmbxwrb5747 [place] [id number]. Anjali Reagan LYMPH # 0.9 103/ul Critically low 1.2-3.8 [facility] Comment on above: Performed By: #### C BC ####[facility] [address]oc[address]vx[address] [place] [id number]. Anjali Reagan Lymphocytes/100 WBC (Bld) 12.6 % Critically low 20.5-60.0 [facility] Comment on above: Performed By: #### C BC ####[facility] [address]zjoibivun24[address] [place] [id number]. Anjali Reagan MANUAL DIFF REQ NO Normal [facility] Comment on above: Performed By: #### C BC ####[facility] Huwexcueeg[address] [place] [phone]. Anjali Reagan MCH (RBC) [Entitic mass] 27.5 pg Normal 25.9-34.0 [facility] Comment on above: Performed By: #### C BC ####[facility] Lkeyqqkwus3154 [place] [phone]. Anjali Reagan MCHC (RBC) [Mass/Vol] 31.3 g/dL Normal 29.9-35.2 [facility] Comment on above: Performed By: #### C BC ####[facility] [address]nykpbgkea7275 [place] [phone] Reagan MCV (RBC) [Entitic vol] 87.6 fL Normal 80.0-94.0 [facility] Comment on above: Performed By: #### C BC ####[facility] Wqpuehoylx9643 [place] [phone] Reagan MONO # 0.7 103/ul Normal 0.3-0.8 [facility] Comment on above: Performed By: #### C BC ####[facility] Btuzoolqlw0263 [place] [phone]. Anjali Reagan Monocytes/100 WBC (Bld) 10.3 % Normal 1.7-12.0 [facility] Comment on above: Performed By: #### C BC ####[facility] Yfeywmclix0528 [place] [phone]. Anjali Reagan NEUT # 5.1 103/ul Normal 1.4-6.5 [facility] Comment on above: Performed By: #### C BC ####[facility] Xvaydbhmmk5122 [place] [phone]. Anjali Reagan Neutrophils/100 WBC (Bld) 71.8 % Normal 43.0-75.0 [facility] Comment on above: Performed By: #### C BC ####[facility] Nmelpvcgpf4057 [place] [phone]. Anjali Reagan Platelet mean volume (Bld) [Entitic vol] 9.4 fL Critically low 9.5-13.5 [facility] Comment on above: Performed By: #### C BC ####[facility] Jygzabfxog7139 [place] [phone]. Anjali Reagan PLT 249 103/ul Normal 150-450 [facility] Comment on above: Performed By: #### C BC ####[facility] Ioczsxhavl7637 [place] [phone]. Anjali Reagan RBC 4.37 106/ul Critically low 4.70-6.10 [facility] Comment on above: Performed By: #### C BC ####[facility] Aedrukmyiq25[address] [place] [phone]. Anjali Reagan WBC 7.1 103/ul Normal 4.0-11.0 [facility] Comment on above: Performed By: #### C BC ####[facility] Pswwhzviyt6730 [place] [phone]. Anjali Reagan CRPon 09-09-2021 CRP 1.9 mg/dL Critically high <=1.0 [facility] Comment on above: Performed By: #### C RP, CMP ####[facility] Odprqnfwlw13[address] [place] [phone]. Anjali Reagan GRAM STAINon 09-09-2021 COMMENTS NO ORGANISMS OBSERVED Normal [facility] Comment on above: Performed By: #### G STAIN ####[facility] Brqrizrpbr8004 [place] [address]Dr. Anjali Reagan DIPHTHEROIDS Normal [facility] Comment on above: Performed By: #### G STAIN ####[facility] Usfeykjrzh79[address] [place] [address]Dr. Anjali Reagan EPITHELIALS Normal [facility] Comment on above: Performed By: #### G STAIN ####[facility] Abvevofrhm3978 [place] [address]Dr. Anjali Reagan FUNGAL ELEMENTS Normal [facility] Comment on above: Performed By: #### G STAIN ####[facility] Allfvxxxen[address] [place], [place] [address]Dr. Anjail Reagan GRAM NEG BACILLI Normal [facility] Comment on above: Performed By: #### G STAIN ####[facility] Ohemjqllbo[address] [place], [place] [address]Dr. Anjali Reagan GRAM NEG DIPPLOCOCCI Normal [facility] Comment on above: Performed By: #### G STAIN ####[facility] Sopgowjwjy[address] [place], [place] [address]Dr. Anjali Reagan GRAM POS BACILLI Normal [facility] Comment on above: Performed By: #### G STAIN ####[facility] Rsoldixfxv2200 [place] [address]Dr. Anjali Reagan GRAM POSITIVE COCCI Normal [facility] Comment on above: Performed By: #### G STAIN ####[facility] Cqaxdqzccy9844 [place] [address]Dr. Anjali Reagan GRAM STAIN SOURCE Left foot lateral Normal [facility] Comment on above: Performed By: #### G STAIN ####[facility] Kkspqdeanv4255 [place] [address]Dr. Anjali Reagan GS_DIPTH Normal [facility] Comment on above: Performed By: #### G STAIN ####[facility] Jutjxzigzt8279 [place] [address]Dr. Anjali Reagan WBC RARE Normal [facility] Comment on above: Performed By: #### G STAIN ####[facility] Amlxrwvpml9145 [place] [phone]. Anjali Reagan PROF 14(COMP METB)on 022 Albumin [Mass/Vol] 3.5 g/dL Normal 3.4-5.0 [facility] Comment on above: Performed By: #### C RP, CMP ####[facility] Iqiddnfgzk7796 [place] [phone]. Anjali Reagan Albumin/Globulin [Mass ratio] 0.8 {ratio} Normal [facility] Comment on above: Performed By: #### C RP, CMP ####[facility] Glxueazdgp8205 [place] [address]Dr. Anjali Reagan ALP [Catalytic activity/Vol] 136 U/L Critically high 46-116 [facility] Comment on above: Performed By: #### C RP, CMP ####[facility] Brhehzguqq9818 [place] [address]Dr. Anjali Reagan ALT [Catalytic activity/Vol] 34 U/L Normal 16-63 [facility] Comment on above: Performed By: #### C RP, CMP ####[facility] Ptbtijussl7589 [place] [address]Dr. Anjali Reagan Anion gap [Moles/Vol] 12.9 mmol/L Normal [facility] Comment on above: Performed By: #### C RP, CMP ####[facility] Bxsuswevjh5785 [place] [address]Dr. Anjali Reagan AST [Catalytic activity/Vol] 27 U/L Normal 15-37 [facility] Comment on above: Performed By: #### C RP, CMP ####[facility] Cxqbcbyvls1230 [place] [address]Dr. Anjali Reagan Bilirubin [Mass/Vol] 0.4 mg/dL Normal 0.2-1.0 [facility] Comment on above: Performed By: #### C RP, CMP ####[facility] Lyaybhnwzz8319 [place] [address]Dr. Anjali Reagan Calcium [Mass/Vol] 9.7 mg/dL Normal 8.5-10.1 [facility] Comment on above: Performed By: #### C RP, CMP ####[facility] Yniqiiyuhz6699 [place] [address]Dr. Anjali Reagan Chloride [Moles/Vol] 103 mmol/L Normal 98-107 [facility] Comment on above: Performed By: #### C RP, CMP ####[facility] Tblhaftjsj[address] [place], [place] [address]Dr. Anjali Reagan CO2 [Moles/Vol] 28.9 mmol/L Normal 21.0-32.0 [facility] Comment on above: Performed By: #### C RP, CMP ####[facility] Guohgyncay[address] [place], [place] [address]Dr. Anjali Reagan Creatinine [Mass/Vol] 1.57 mg/dL Critically high 0.70-1.30 [facility] Comment on above: Performed By: #### C RP, CMP ####[facility] Ptutxxtujc[address] [place], [place] [address]Dr. Anjali Tez EGFR-AF ENGLISH 54 mL/min/1.73m2 Critically low >=60 [facility] Comment on above: Performed By: #### C RP, CMP ####[facility] Bmndjopqhl[address] [place], [place] [address]Dr. Anjali Reagan EGFR-NON AF ENGLISH 45 mL/min/1.73m2 Critically low >=60 [facility] Comment on above: Performed By: #### C RP, CMP ####[facility] Tkasstslja[address] [place], [place] [address]Dr. Anjali Reagan Globulin (S) [Mass/Vol] 4.5 g/dL Normal [facility] Comment on above: Performed By: #### C RP, CMP ####[facility] Cugadevbpc[address] [place], [place] [address]Dr. Anjali Tez Glucose [Mass/Vol] 174 mg/dL Critically high 74-106 [facility] Comment on above: Performed By: #### C RP, CMP ####[facility] Nlbdnhspzm[address] [place], [place] [address]Dr. Anjali Reagan Potassium [Moles/Vol] 4.8 mmol/L Normal 3.5-5.1 [facility] Comment on above: Performed By: #### C RP, CMP ####[facility] Vtrrvgxjxx1535 [place] [address]Dr. Anjali Reagan Protein [Mass/Vol] 8.0 g/dL Normal 6.4-8.2 [facility] Comment on above: Performed By: #### C RP, CMP ####[facility] Kpsdtwacvy[address] [place], [place] [address]Dr. Anjali Reagan Sodium [Moles/Vol] 140 mmol/L Normal 136-145 [facility] Comment on above: Performed By: #### C RP, CMP ####[facility] Mihitbmfdk[address] [place], [place] [address]Dr. Anjali Reagan Urea nitrogen [Mass/Vol] 34.0 mg/dL Critically high 7.0-18 .0 [facility] Comment on above: Performed By: #### C RP, CMP ####[facility] Uvhhfkvgag[address] [place], [place] [address]Dr. Anjali Reagan Urea nitrogen/Creatinine [Mass ratio] 21.7 mg/mg Normal [facility] Comment on above: Performed By: #### C RP, CMP ####[facility] Zeuxkqaotv[address] [place], [place] [address]Dr. Anjali Reagan XR FOOT RT MIN 3 VIEWSon XR FOOT RT MIN 3 VIEWS Normal [facility] XR ANKLE RT MIN 3 VIEWSon XR ANKLE RT MIN 3 VIEWS Normal [facility] CULTURE BLOODon 08-26-2021 Microscopic examination of blood, culture Culture Observations: NO GROWTH AT 5 DAYS. Normal [facility] Comment on above: Performed By: #### B LDCX2 ####[facility] Tumjlznobk[address] [place], [place] [address]Dr. Anjali Reagan Microscopic examination of blood, culture Culture Observations: NO GROWTH AT 5 DAYS. Normal [facility] Comment on above: Performed By: #### B LDCX1 ####[facility] [address]wlkznhcwy[address] [place], [place] [address]Dr. Anjali Reagan PREALBUMINon 08-26-2021 Prealbumin [Mass/Vol] 14 mg/dL Normal 10-36 [facility] Comment on above: Performed By: #### P REALBL ####[facility] Wnaugqgpdi[address] [place], [place] [address]Dr. Anjali Reagan CBC W MANUAL DIFFon 08-25-19 ANISOCYTOSIS SLIGHT Normal [facility] Comment on above: Performed By: #### C BCFIONA ####[facility] Coknjtsmit[address]67 [place] [address]Dr. Anjali Reagan ATYPICAL LYMPH # Normal [facility] Comment on above: Performed By: #### C CORI ####[facility] Glrabgglix[address] [place], [place] [address]Dr. Anjali Reagan ATYPICAL LYMPH % Normal [facility] Comment on above: Performed By: #### C CORI ####[facility] Pfuswbcxmf[address] [place], [place] [address]Dr. Anjali Reagan BAND # Normal 0.0-0.3 [facility] Comment on above: Performed By: #### C CORI ####[facility] Lmenegeaqg[address] [place], [place] [address]Dr. Anjali Reagan BAND % Normal 0-5 [facility] Comment on above: Performed By: #### C CORI ####[facility] Ozwkiymjaa[address] [place], [place] [address]Dr. Anjali Reagan BASOM # 0.00 103/ul Normal 0.00-0.10 [facility] Comment on above: Performed By: #### C CORI ####[facility] [address]ms[address]fsi[address] [place], [place] [address]Dr. Anjali Reagan BASOM % 0.0 % Critically low 0.2-2.0 [facility] Comment on above: Performed By: #### C CORI ####[facility] Yusnrprsyl1737 [place] [address]Dr. Anjali Reagan BLAST # Normal [facility] Comment on above: Performed By: #### C CORI ####[facility] Bhemeaelan[address] [place], [place] [address]Dr. Anjali Reagan BLAST % Normal [facility] Comment on above: Performed By: #### C CORI ####[facility] Iftopicbbv5514 [place] [phone]. Anjali Reagan CORRECTED WBC Normal 4.0-11.0 [facility] Comment on above: Performed By: #### C BCFIONA ####[facility] Rklkwjpehm1106 [place] [phone]. Anjali Reagan EOS # 0.34 103/ul Normal 0.00-0.70 [facility] Comment on above: Performed By: #### C CORI ####[facility] Ztzakdzqmh33[address] [place] [address]Dr. Anjali Reagan EOS% 3.0 % Normal 0.9-7.0 [facility] Comment on above: Performed By: #### C CORI ####[facility] Lnjnmalqhg[address]66 [place] [address]Dr. Anjali Reagan HCT 36.2 % Critically low 42.0-54.0 [facility] Comment on above: Performed By: #### C CORI ####[facility] Sswprrcaay6941 [place] [address]Dr. Anjali Reagan HGB 11.8 g/dl Critically low 14.0-18.0 [facility] Comment on above: Performed By: #### C CORI ####[facility] Gvlgaozzob0184 [place] [phone]. Anjali Reagan LYMPHM # 1.03 103/ul Critically low 1.20-3.80 [facility] Comment on above: Performed By: #### C CORI ####[facility] Ekzbpbyycu[address] [place] [id number]. Anjali Reagan LYMPHM% 9.0 % Critically low 20.5-60.0 [facility] Comment on above: Performed By: #### C CORI ####[facility] Fptmfgnzap0311 [place] [phone]. Anjali Reagan MCH 28.0 pg Normal 25.9-34.0 [facility] Comment on above: Performed By: #### C CORI ####[facility] Kfbuspuwth9349 [place] [phone]. Anjali Reagan MCHC 32.6 g/dl Normal 29.9-35.2 [facility] Comment on above: Performed By: #### C CORI ####[facility] Vkjbzpobyh8623 [place] [phone]. Anjali Reagan MCV 85.8 fL Normal 80.0-94.0 [facility] Comment on above: Performed By: #### C CORI ####[facility] Bxqfuatkuu9490 [place] [phone]. Anjali Reagan METAMYELOCYTE # Normal [facility] Comment on above: Performed By: #### C CORI ####[facility] Ahvnmjaizi2987 [place] [phone]. Anjali Reagan METAMYELOCYTE % Normal [facility] Comment on above: Performed By: #### Uzair PERSAUD ####[facility] Hbpdxwyxii4491 [place] [phone]. Anjali Reagan MONOM# 1.61 103/ul Critically high 0.30-0.80 [facility] Comment on above: Performed By: #### C CORI ####[facility] Ceicryqndj5548 [place] [phone]. Anjali Reagan MONOM% 14.0 % Critically high 1.7-12.0 [facility] Comment on above: Performed By: #### C CORI ####[facility] Cvtpjmpyae1725 [place] [phone]. Anjali Reagan MPV 8.9 fL Critically low 9.5-13.5 [facility] Comment on above: Performed By: #### C CORI ####[facility] Wcjunprurt7849 [place] [phone]. Anjali Reagan MYELOCYTE # Normal [facility] Comment on above: Performed By: #### C CORI ####[facility] Bsegbqzelv5548 [place] [phone]. Anjali Reagan MYELOCYTE % Normal [facility] Comment on above: Performed By: #### C CORI ####[facility] Ssvqcjzlje74[address] [place], [place] [address]Rw. Anjali Reagan NRBC Normal [facility] Comment on above: Performed By: #### C CORI ####[facility] Zwbvadawth3990 [place], [place] [address]Sn. Anjali Reagan PLT 263 103/ul Normal 150-450 [facility] Comment on above: Performed By: #### C CORI ####[facility] Kveqjnhund5581 [place], [place] [address]Iz. Anjali Reagan RBC 4.22 106/ul Critically low 4.70-6.10 [facility] Comment on above: Performed By: #### C CORI ####[facility] Leqcjmugyq9543 [place], [place] [address]Mv. Anjali Reagan RDW 16.0 % Critically high 11.0-15.0 [facility] Comment on above: Performed By: #### C CORI ####[facility] Pgdfqkjirs9954 [place], [place] [address]Yw. Anjali Reagan SEG # 8.51 103/ul Critically high 1.40-6.50 [facility] Comment on above: Performed By: #### C CORI ####[facility] Ywylwxopia0067 [place], [place] [address]Dt. Anjali Reagan SEG % 74.0 % Normal 43.0-75.0 [facility] Comment on above: Performed By: #### C CORI ####[facility] Yjlauihbtt3340 [place], [place] [address]Bn. Anjali Reagan WBC 11.5 103/ul Critically high 4.0-11.0 [facility] Comment on above: Performed By: #### C CORI ####[facility] Vztllxntov1614 [place] [phone]. Anjali Reagan CRPon 08-24-2021 CRP 11.6 mg/dL Critically high <=1.0 [facility] Comment on above: Performed By: #### C RP, CMP ####[facility] [facility] Jgbbrtqbsm[address] [place] [address]Dr. Anjali Reagan PROF 14(COMP METB)on 022 Albumin [Mass/Vol] 3.2 g/dL Critically low 3.4-5.0 [facility] Comment on above: Performed By: #### C RP, CMP ####[facility] Wrbgmcjidy5[address] [place] [address]Dr. Anjali Reagan Albumin/Globulin [Mass ratio] 0.7 {ratio} Normal [facility] Comment on above: Performed By: #### C RP, CMP ####[facility] Skbsnaphro8[address] [place] [address]Dr. Anjali Reagan ALP [Catalytic activity/Vol] 107 U/L Normal 46-116 [facility] Comment on above: Performed By: #### C RP, CMP ####[facility] Zxlanakttp1180 [place] [address]Dr. Anjali Reagan ALT [Catalytic activity/Vol] 57 U/L Normal 16-63 [facility] Comment on above: Performed By: #### C RP, CMP ####[facility] Iyrjmnbswe5514 [place] [address]Dr. Anjali Reagan Anion gap [Moles/Vol] 13.7 mmol/L Normal [facility] Comment on above: Performed By: #### C RP, CMP ####[facility] Yuswriwvqc2805 [place] [address]Dr. Anjali Reagan AST [Catalytic activity/Vol] 40 U/L Critically high 15-37 [facility] Comment on above: Performed By: #### C RP, CMP ####[facility] Aquxedtkbw6339 [place] [address]Dr. Anjali Reagan Bilirubin [Mass/Vol] 0.6 mg/dL Normal 0.2-1.0 [facility] Comment on above: Performed By: #### C RP, CMP ####[facility] Xvalkhnibp2[address] [place] [address]Dr. Anjali Reagan Calcium [Mass/Vol] 9.7 mg/dL Normal 8.5-10.1 [facility] Comment on above: Performed By: #### C RP, CMP ####[facility] Ljuppvafir9407 [place] [address]Dr. Anjali Reagan Chloride [Moles/Vol] 98 mmol/L Normal 98-107 [facility] Comment on above: Performed By: #### C RP, CMP ####[facility] Cqhpgfegtn[address] [place], [place] [address]Dr. Anjali Reagan CO2 [Moles/Vol] 30.0 mmol/L Normal 21.0-32.0 [facility] Comment on above: Performed By: #### C RP, CMP ####[facility] Aubgqmdter9[address] [place], [place] [address]Dr. Anjali Reagan Creatinine [Mass/Vol] 1.73 mg/dL Critically high 0.70-1.30 [facility] Comment on above: Performed By: #### C RP, CMP ####[facility] Hksnkmdtpj5[address] [place], [place] [address]Dr. Anjali Reagan EGFR-AF ENGLISH 49 mL/min/1.73m2 Critically low >=60 [facility] Comment on above: Performed By: #### C RP, CMP ####[facility] Glntxzxobo348[address] [place], [place] [address]Dr. Anjali Reagan EGFR-NON AF ENGLISH 40 mL/min/1.73m2 Critically low >=60 [facility] Comment on above: Performed By: #### C RP, CMP ####[facility] Swbojqvjxr[address] [place], [place] [address]Dr. Anjali Reagan Globulin (S) [Mass/Vol] 4.7 g/dL Normal [facility] Comment on above: Performed By: #### C RP, CMP ####[facility] Ywjcrjkajc[address] [place], [place] [address]Dr. Anjali Reagan Glucose [Mass/Vol] 92 mg/dL Normal 74-106 [facility] Comment on above: Performed By: #### C RP, CMP ####[facility] Qvtzzmejse594[address] [place], [place] [address]Dr. Anjali Reagan Potassium [Moles/Vol] 3.7 mmol/L Normal 3.5-5.1 [facility] Comment on above: Performed By: #### C RP, CMP ####[facility] Ohrbucueoa[address] [place], [place] [address]Dr. Anjali Reagan Protein [Mass/Vol] 7.9 g/dL Normal 6.4-8.2 [facility] Comment on above: Performed By: #### C RP, CMP ####[facility] Klibzyozrz[address] [place], [place] [address]Dr. Anjali Reagan Sodium [Moles/Vol] 138 mmol/L Normal 136-145 [facility] Comment on above: Performed By: #### C RP, CMP ####[facility] Aejoqtoiug[address] [place], [place] [address]Dr. Anjali Reagan Urea nitrogen [Mass/Vol] 50.0 mg/dL Critically high 7.0-18 .0 [facility] Comment on above: Performed By: #### C RP, CMP ####[facility] Rkxlpijyih[address] [place], [place] [address]Dr. Anjali Reagan Urea nitrogen/Creatinine [Mass ratio] 28.9 mg/mg Normal [facility] Comment on above: Performed By: #### C RP, CMP ####[facility] Sfsetkuryu[address] [place], [place] [address]Dr. Anjali Reagan SED RATE [facility] 2021 SED RATE 17 mm/hr Normal <=20 [facility] Comment on above: Performed By: #### S EDR ####[facility] Djierdlbmk[address] [place], [place] [address]Dr. Anjali Reagan CBC (INCLUDES DIFF/PLT)on Basophils (Bld) [#/Vol] 0.034 10*3/uL Normal 0-200 [facility] Comment on above: Performed By: #### 6 399, 496, 718, 69932 #### [facility] [address] [place] [address], [address] [place] [address] Line Analyst: Juan Meraz MD Basophils/100 WBC (Bld) 0.3 % Normal [facility] Comment on above: Performed By: #### 6 399, 496, 718, 56322 #### [facility] of [place] [address] Line Analyst: Juan Meraz MD Eosinophils (Bld) [#/Vol] 0.023 10*3/uL Normal 15-500 [facility] Comment on above: Performed By: #### 6 399, 496, 718, 06691 #### [facility] [place] [address] Line Analyst: Juan Meraz MD Eosinophils/100 WBC (Bld) 0.2 % Normal [facility] Comment on above: Performed By: #### 6 399, 496, 718, 63442 #### [facility] [place] [address] Line Analyst: Juan Meraz MD Erythrocyte distribution width (RBC) [Ratio] 15.6 % High 11.0-15.0 [facility] Comment on above: Performed By: #### 6 399, 496, 718, 84528 #### [facility] [place] [address] Line Analyst: Juan Meraz MD Hematocrit (Bld) [Volume fraction] 38.9 % Normal 38.5-50.0 [facility] Comment on above: Performed By: #### 6 399, 496, 718, 44975 #### [facility] [place] [address] Line Analyst: Juan Meraz MD Hemoglobin (Bld) [Mass/Vol] 12.7 g/dL Low 13.2-17.1 [facility] Comment on above: Performed By: #### 6 399, 496, 718, 95413 #### [facility] [place] [address] Line Analyst: Juan Meraz MD Lymphocytes (Bld) [#/Vol] 0.531 10*3/uL Low 850-3900 [facility] Comment on above: Performed By: #### 6 399, 496, 718, 93982 #### [facility] [place] [address] Line Analyst: Juan Meraz MD Lymphocytes/100 WBC (Bld) 4.7 % Normal [facility] Comment on above: Performed By: #### 6 399, 496, 718, 09282 #### [facility] [place] [address] Line Analyst: Juan Meraz MD MCH (RBC) [Entitic mass] 28.2 pg Normal 27.0-33.0 [facility] Comment on above: Performed By: #### 6 399, 496, 718, 92427 #### [facility] [place] [address] Line Analyst: Juan Meraz MD MCHC (RBC) [Mass/Vol] 32.6 g/dL Normal 32.0-36.[address] [facility] Comment on above: Performed By: #### 6 399, 496, 718, 11794 #### [facility] [place] [address] Line Analyst: Juan Meraz MD MCV (RBC) [Entitic vol] 86.4 fL Normal 80.0-100.0 [facility] Comment on above: Performed By: #### 6 399, 496, 718, 24414 #### [facility] [place] [address] Line Analyst: Juan Meraz MD Monocytes (Bld) [#/Vol] 1.119 10*3/uL High 200-950 [facility] Comment on above: Performed By: #### 6 399, 496, 718, 45163 #### [facility] [place] [address] Line Analyst: Juan Meraz MD Monocytes/100 WBC (Bld) 9.9 % Normal [facility] Comment on above: Performed By: #### 6 399, 496, 718, 49561 #### [facility] of [address], [address] [place] [address] Line Analyst: Juan Meraz MD Neutrophils (Bld) [#/Vol] 9.594 10*3/uL High 1141-4785 [facility] Comment on above: Performed By: #### 6 399, 496, 718, 64424 #### [facility] of [address], [address] [place] [address] Line Analyst: Juan Meraz MD Neutrophils/100 WBC (Bld) 84.9 % Normal [facility] Comment on above: Performed By: #### 6 399, 496, 718, 92568 #### [facility] [place] [address] Line Analyst: Juan Meraz MD Platelet mean volume (Bld) [Entitic vol] 10.1 fL Normal 7.5-12.5 [facility] Comment on above: Performed By: #### 6 399, 496, 718, 74601 #### [facility] [place] [address] Line Analyst: Juan Meraz MD Platelets (Bld) [#/Vol] 267 10*3/uL Normal 140-400 [facility] Comment on above: Performed By: #### 6 399, 496, 718, 20140 #### [facility] [place] [address] Line Analyst: Juan Meraz MD RBC (Bld) [#/Vol] 4.50 10*6/uL Normal 4.20-5.80 [facility] Comment on above: Performed By: #### 6 399, 496, 718, 99625 #### [facility] [place] [address] Line Analyst: Juan Meraz MD WBC (Bld) [#/Vol] 11.3 10*3/uL High 3.8-10.8 [facility] Comment on above: Performed By: #### 6 399, 496, 718, 98333 #### [facility] [place] [address] Line Analyst: Juan Meraz MD HEMOGLOBIN A1con 08-23-2021 [...] Performed By: #### 6 399, 496, 718, 34299 #### [facility] [place] [address] Line Analyst: Juan Meraz MD PHOSPHATE ( PHOSPHORUS)on 08-23-2021 Phosphate [Mass/Vol] 3.7 mg/dL Normal 2.5-4.5 [facility] Comment on above: Order Comment: PATIE NT UNABLE TO VOID; ADVISED TO RETURN FOR COLLECTION. Performed By: #### 6 399, 496, 718, 47343 #### [facility] [place] [address] Line Analyst: Juan Meraz MD PTH, INTACT WITHOUT [...] Performed By: #### 6 399, 496, 718, 04063 #### [facility] [address] [place] [address] Line Analyst: Juan Meraz MD VITAMIN D,25-OH,TOTAL,IAon 0 [...] D, (D2,D3), LC/MS/MS is recommended: order code 40130 (patients >2yrs). See Note 1 Note 1 For additional information, please refer to http://education.ChipX/faq/PLM787 (This link is being provided for informational/ educational purposes only.) Performed By: #### 6 399, 496, 718, 07890 #### [facility] [address], [address] [place] [address] Line Analyst: Juan Meraz MD CBC W MANUAL DIFFon 07-06-19 22 ATYPICAL LYMPH # Normal [facility] Comment on above: Performed By: #### Uzair PERSAUD ####[facility] Xylhmmznrg1518 [place] [address]Dr. Biancaramona Reagan ATYPICAL LYMPH % Normal [facility] Comment on above: Performed By: #### Uzair PERSAUD ####[facility] Ywznoehnks3675 [place] [address]Dr. Yilan Reagan BAND # 0.1 103/ul Normal 0.0-0.3 [facility] Comment on above: Performed By: #### Uzair PERSAUD ####[facility] Qmfopnplqp4612 [place] [address]Dr. Biancalan Reagan BAND % 1 % Normal 0-5 [facility] Comment on above: Performed By: #### Uzair PERSAUD ####[facility] Asirdaryhc0567 [place] [address]Dr. Biancalan Reagan BASOM # 0.00 103/ul Normal 0.00-0.10 [facility] Comment on above: Performed By: #### C BCFIONA ####[facility] Ugsdojexgy33[address] [place] [address]Dr. Anjali Reagan BASOM % 0.0 % Critically low 0.2-2.0 The [facility] Comment on above: Performed By: #### C BCFIONA ####[facility] Himwwtmhgq8365 [place] [address]Dr. Anjali Reagan BLAST # Normal [facility] Comment on above: Performed By: #### C BCFIONA ####[facility] Wcdqsdgkhb8083 [place] [address]Dr. Anjali Reagan BLAST % Normal [facility] Comment on above: Performed By: #### C BCFIONA ####[facility] Sockjetaql[address] [place], [place] [address]Dr. Anjali Reagan CORRECTED WBC Normal 4.0-11.0 The [facility] Comment on above: Performed By: #### C BCFIONA ####[facility] Osjbgatmba[address] [place], [place] [address]Dr. Anjali Reagan EOS # 0.16 103/ul Normal 0.00-0.70 [facility] Comment on above: Performed By: #### C BCFIONA ####[facility] Lmwiblkhif064[address] [place], [place] [address]Dr. Anjali Reagan EOS% 2.0 % Normal 0.9-7.0 [facility] Comment on above: Performed By: #### C BCFIONA ####[facility] Dsiokuaclb[address] [place], [place] [address]Dr. Anjali Reagan HCT 35.3 % Critically low 42.0-54.0 The [facility] Comment on above: Performed By: #### C BCMAN ####[facility] Ptctwwqxwa[address] [place], [place] [address]Dr. Anjali Reagan HGB 11.4 g/dl Critically low 14.0-18.0 [facility] Comment on above: Performed By: #### C BCFIONA ####[facility] X[address] [place] [address]Lv. Anjali Reagan LYMPHM # 0.70 103/ul Critically low 1.20-3.80 The [facility] Comment on above: Performed By: #### C CORI ####[facility] Qhowqgqnbw0896 [place] [address]Dr. Anjali Reagan LYMPHM% 9.0 % Critically low 20.5-60.0 The [facility] Comment on above: Performed By: #### C CORI ####[facility] Eruuvjfxvd0989 [place] [address]Dr. Anjali Reagan MCH 27.5 pg Normal 25.9-34.0 [facility] Comment on above: Performed By: #### C CORI ####[facility] Vgreiiedhv[address] [place], [place] [address]Dr. Anjali Reagan MCHC 32.3 g/dl Normal 29.9-35.2 [facility] Comment on above: Performed By: #### C CORI ####[facility] Bdbhbqpjlm[address] [place], [place] [address]Dr. Anjali Reagan MCV 85.3 fL Normal 80.0-94.0 [facility] Comment on above: Performed By: #### C CORI ####[facility] Cnsrxlqkev[address] [place], [place] [address]Dr. Anjali Reagan METAMYELOCYTE # Normal [facility] Comment on above: Performed By: #### C CORI ####[facility] Boiyfixhxa7865 [place] [address]Dr. Anjali Reagan METAMYELOCYTE % Normal [facility] Comment on above: Performed By: #### C CORI ####[facility] Zaekreplem1661 [place] [address]Dr. Anjali Reagan MONOM# 1.09 103/ul Critically high 0.30-0.80 [facility] Comment on above: Performed By: #### C CORI ####[facility] Kyzmzzpjmt7438 [place] [address]Dr. Anjali Reagan MONOM% 14.0 % Critically high 1.7-12.0 [facility] Comment on above: Performed By: #### C CORI ####[facility] Swwetvtguf3646 [place], [place] [address]Ic. Anjali Reagan MPV 9.6 fL Normal 9.5-13.5 The [facility] Comment on above: Performed By: #### C CORI ####[facility] Qozkstydsa8933 [place], [place] [address]Nm. Anjali Reagan MYELOCYTE # Normal [facility] Comment on above: Performed By: #### C CORI ####[facility] Fijubeqzkz6600 [place], [place] [address]Qn. Anjali Reagan MYELOCYTE % Normal [facility] Comment on above: Performed By: #### C CORI ####[facility] Qaqhnfucuo3259 [place] [address]Dr. Anjali Reagan NRBC Normal [facility] Comment on above: Performed By: #### C CORI ####[facility] Syaduhzyzd4013 [place] [address]Dr. Anjali Reagan PLT 119 103/ul Critically low 150-450 [facility] Comment on above: Performed By: #### C CORI ####[facility] Botrzxkhhs3193 [place] [address]Dr. Anjali Reagan RBC 4.14 106/ul Critically low 4.70-6.10 The [facility] Comment on above: Performed By: #### C CORI ####[facility] Kqbbtudhct0720 [place] [address]Dr. Anjali Reagan RDW 16.1 % Critically high 11.0-15.0 The [facility] Comment on above: Performed By: #### C CORI ####[facility] Jtkrxopgyg1677 [place] [address]Dr. Anjali Reagan SEG # 5.77 103/ul Normal 1.40-6.50 [facility] Comment on above: Performed By: #### C CORI ####[facility] Pzlpjglqno4825 [place] [address]Dr. Anjali Reagan SEG % 74.0 % Normal 43.0-75.0 The [facility] Comment on above: Performed By: #### C CORI ####[facility] Dqorngytez1600 [place] [address]Dr. Biancaramona Tez WBC 7.8 103/ul Normal 4.0-11.0 [facility] Comment on above: Performed By: #### C CORI ####[facility] Zlzigvyjhf3666 [place] [address]Dr. Anjali Reagan CRPon 07-05-2021 CRP [Mass/Vol] mg/L Critically high <=1.0 [facility] Comment on above: Performed By: #### C RP, BMP ####[facility] Fqcntumlvm[address] [place], [place] [address]Dr. Anjali Reagan PROF CHEM 8 (BAS METB)on Anion gap [Moles/Vol] 10.1 mmol/L Normal [facility] Comment on above: Performed By: #### C RP, BMP ####[facility] Eqhfqfcfuo[address] [place], [place] [address]Dr. Anjali Reagan Calcium [Mass/Vol] 9.6 mg/dL Normal 8.5-10.1 [facility] Comment on above: Performed By: #### C RP, BMP ####[facility] Nqoaozfuyr[address] [place], [place] [address]Dr. Anjali Reagan Chloride [Moles/Vol] 100 mmol/L Normal 98-107 [facility] Comment on above: Performed By: #### C RP, BMP ####[facility] Dcbfsrxzne[address] [place], [place] [address]Dr. Anjali Reagan CO2 [Moles/Vol] 30.4 mmol/L Critically high 22.0-30.0 [facility] Comment on above: Performed By: #### C RP, BMP ####[facility] Oeavuwcgam[address] [place], [place] [address]Dr. Anjali Reagan Creatinine [Mass/Vol] 1.49 mg/dL Critically high 0.66-1.25 [facility] Comment on above: Performed By: #### C RP, BMP ####[facility] Psttjigofj7936 [place] [id number]. Anjali Reagan EGFR-AF ENGLISH 58 mL/min/1.73m2 Critically low >=60 [facility] Comment on above: Performed By: #### C RP, BMP ####[facility] Exveovwsmb[address] [place], [place] [address]Dr. Anjali Reagan EGFR-NON AF ENGLISH 48 mL/min/1.73m2 Critically low >=60 [facility] Comment on above: Performed By: #### C RP, BMP ####[facility] Idkcerlpdq2371 [place] [address]Dr. Anjali Reagan Glucose [Mass/Vol] 191 mg/dL Critically high 74-106 [facility] Comment on above: Performed By: #### C RP, BMP ####[facility] Vdhbaacxim8[address] [place], [place] [address]Dr. Biancaramona Reagan Potassium [Moles/Vol] 4.5 mmol/L Normal 3.4-5.0 [facility] Comment on above: Performed By: #### C RP, BMP ####[facility] Pjxkssqtth2986 [place] [address]Dr. Anjali Reagan Sodium [Moles/Vol] 136 mmol/L Critically low 137-145 [facility] Comment on above: Performed By: #### C RP, BMP ####[facility] Cvtlxjcllu8452 [place] [phone]. Anjali Reagan Urea nitrogen [Mass/Vol] 33.0 mg/dL Critically high 7.0-18 .0 [facility] Comment on above: Performed By: #### C RP, BMP ####[facility] Rdshosmfqv0928 [place] [address]Dr. Anjali Reagan Urea nitrogen/Creatinine [Mass ratio] 22.1 mg/mg Normal [facility] Comment on above: Performed By: #### C RP, BMP ####[facility] Tnoqnhihcr[address] [place], [place] [address]Dr. Anjali Reagan SED RATE [facility] 2021 SED RATE 26 mm/hr Critically high <=20 [facility] Comment on above: Performed By: #### S EDR ####[facility] Tgxfqdbawy6893 [place] [phone]. Anjali Reagan XR ANKLE RT MIN 3 VIEWSon XR ANKLE RT MIN 3 VIEWS Normal T he [facility] CT ANKLE RT WO CONon 022 CT ANKLE RT WO CON Normal The [facility] CULTURE OTHERon 05-19-2021 CULTURE OTHER Normal The [facility] Comment on above: Performed By: #### O THCX ####[facility] Vngfxujqbq1430 [place] [phone]. Biancaramona Reagan CULTURE ANAEROBICon 05-16-19 22 CULTURE ANAEROBIC Specimen Comments: RIGHT FOOT ABSCESS Culture Observations: NO GROWTH OF ANAEROBES AT 72 HOURS. Normal [facility] Comment on above: Performed By: #### A NACX ####[facility] Nucwmshupt[address] [place], [place] [address]Dr. Anjali Reagan GRAM STAINon 05-16-2021 DIPHTHEROIDS Normal [facility] Comment on above: Performed By: #### G STAIN ####[facility] Enjodqvnlu36[address] [place] [address]Dr. Anjali Reagan EPITHELIALS Normal [facility] Comment on above: Performed By: #### G STAIN ####[facility] Oxovazvnbx0859 [place] [address]Dr. Anjali Reagan FUNGAL ELEMENTS Normal The [facility] Comment on above: Performed By: #### G STAIN ####[facility] Ecrndbwvfq3965 [place] [phone]. Anjali Reagan GRAM NEG BACILLI MANY Normal [facility] Comment on above: Performed By: #### G STAIN ####[facility] Sevutsuoqf3337 [place] [phone]. Anjali Reagan GRAM NEG DIPPLOCOCCI Normal The [facility] Comment on above: Performed By: #### G STAIN ####[facility] Dqxqzpxubw9520 [place] [phone]. Anjali Reagan GRAM POS BACILLI Normal [facility] Comment on above: Performed By: #### G STAIN ####[facility] Xalvtvfbpt9750 [place], [place] [address]Gq. Anjali Reagan GRAM POSITIVE COCCI Normal [facility] Comment on above: Performed By: #### G STAIN ####[facility] Yaxhyixcvm4158 [place], [place] [address]Gc. Anjali Reagan GRAM STAIN SOURCE RIGHT FOOT Normal The [facility] Comment on above: Performed By: #### G STAIN ####[facility] Ibowfrnyyq3903 [place], [place] [address]Zr. Anjali Reagan GS_DIPTH Normal [facility] Comment on above: Performed By: #### G STAIN ####[facility] Bkhlhoxvjq2268 [place], [place] [address]Tp. Anjali Reagan WBC MANY Normal [facility] Comment on above: Performed By: #### G STAIN ####[facility] Ppsxiwqmyt4479 [place], [place] [address]Bc. Anjali Reagan XR ANKLE RT MIN 3 VIEWSon XR ANKLE RT MIN 3 VIEWS Normal T [facility] COMPREHENSIVE METABOLIC PANE Ray 04-16-2021 Albumin [Mass/Vol] 4.6 g/dL Normal 3.6-5.1 [facility] Comment on above: Performed By: #### 7 600, 496, 90647 #### [facility] [place] [address] Line Analyst: Juan Meraz MD Albumin/Globulin [Mass ratio] 1.7 {ratio} Normal 1.0-2.5 [facility] Comment on above: Performed By: #### 7 600, 496, 69228 #### [facility] [place] [address] Line Analyst: Juan Meraz MD ALP [Catalytic activity/Vol] 119 U/L Normal 35-144 [facility] Comment on above: Performed By: #### 7 600, 496, 48705 #### [facility] [place] [address] Line Analyst: Juan Meraz MD ALT [Catalytic activity/Vol] 19 U/L Normal 9-46 [facility] Comment on above: Performed By: #### 7 600, 496, 57385 #### [facility] [place] [address] Line Analyst: Juan Meraz MD AST [Catalytic activity/Vol] 20 U/L Normal 10-35 [facility] Comment on above: Performed By: #### 7 600, 496, 69575 #### [facility] [place] [address] Line Analyst: Juan Meraz MD Bilirubin [Mass/Vol] 0.6 mg/dL Normal 0.2-1.2 [facility] Comment on above: Performed By: #### 7 600, 496, 59998 #### [facility] [place] [address] Line Analyst: Juan Meraz MD Calcium [Mass/Vol] 9.9 mg/dL Normal 8.6-10.3 [facility] Comment on above: Performed By: #### 7 600, 496, 39109 #### [facility] [place] [address] Line Analyst: Juan Meraz MD Chloride [Moles/Vol] 102 mmol/L Normal 98-110 [facility] Comment on above: Performed By: #### 7 600, 496, 45470 #### [facility] [place] [address] Line Analyst: Juan Meraz MD CO2 [Moles/Vol] 28 mmol/L Normal 20-32 [facility] Comment on above: Performed By: #### 7 600, 496, 24743 #### [facility] [place] [address] Line Analyst: Juan Meraz MD Creatinine [Mass/Vol] 1.59 mg/dL High 0.70-1.[address] [facility] Comment on above: Result Comment: For patients >49 years of age, the reference limit for Creatinine is approximately 13% higher for people identified as -Romanian. Performed By: #### 7 600, 496, 39829 #### [facility] [address], [address] [place] [address] Line Analyst: Juan Meraz MD eGFR NON-AFR. ENGLISH 46 mL/min/1.73m2 Low > OR = 60 [facility] Comment on above: Performed By: #### 7 600, 496, 39736 #### [facility] [address], [address] [place] [address] Line Analyst: Juan Meraz MD GFR/1.73 sq M.predicted among blacks MDRD (S/P/Bld) [Vol rate/Area] 53 mL/min/{1.73_m2} Low > OR = 60 [facility] Comment on above: Performed By: #### 7 600, 496, 95841 #### [facility] [address], [address] [place] [address] Line Analyst: Juan Meraz MD Globulin (S) [Mass/Vol] 2.7 g/dL Normal 1.9-3.7 [facility] Comment on above: Performed By: #### 7 600, 496, 43836 #### [facility] [place] [address] Line Analyst: Juan Meraz MD Glucose [Mass/Vol] 176 mg/dL High 65-139 [facility] Comment on above: Result Comment: Non-fasting reference interval For someone without known diabetes, a glucose value >125 mg/dL indicates that they may have diabetes and this should be confirmed with a follow-up test. Performed By: #### 7 600, 496, 63093 #### [facility] [address], [address] [place] [address] Line Analyst: Juan Meraz MD Potassium [Moles/Vol] 4.2 mmol/L Normal 3.5-5.[address] [facility] Comment on above: Performed By: #### 7 600, 496, 61588 #### [facility] [place] [address] Line Analyst: Jaun Meraz MD Protein [Mass/Vol] 7.3 g/dL Normal 6.1-8.1 [facility] Comment on above: Performed By: #### 7 600, 496, 45051 #### [facility] [address], [address] [place] [address] Line Analyst: Juan Meraz MD Sodium [Moles/Vol] 138 mmol/L Normal 135-146 [facility] Comment on above: Performed By: #### 7 600, 496, 14792 #### [facility] of [address], [address] [place] [address] Line Analyst: Juan Meraz MD Urea nitrogen [Mass/Vol] 48 mg/dL High 7- [facility] Comment on above: Performed By: #### 7 600, 496, 77963 #### [facility] [address], [address] [place] [address] Line Analyst: Juan Meraz MD Urea nitrogen/Creatinine [Mass ratio] 30 mg/mg High 6- [facility] Comment on above: Performed By: #### 7 600, 496, 08050 #### [facility] of [address], [address] [place] [address] Line Analyst: Juan Meraz MD HEMOGLOBIN A1con 04-16-2021 [...] 1 0165, 496, 905 #### [facility] [address], [address] [place] [address] Line Analyst: Juan Meraz MD LIPID PANEL, [facility] 04-02 Cholesterol [Mass/Vol] 108 mg/dL Normal <200 [facility] Comment on above: Order Comment: FASTI NG:NO FASTING: NO Performed By: #### 7 600, 496, 33788 #### [facility] [address], [address] [place] [address] Line Analyst: Juan Meraz MD Cholesterol in HDL [Mass/Vol] 47 mg/dL Normal > OR = 40 [facility] Comment on above: Order Comment: FASTI NG:NO FASTING: NO Performed By: #### 7 600, 496, 06544 #### [facility] [address], [address] [place] [address] Line Analyst: Juan Meraz MD Cholesterol in LDL [...] LDL-C. Camden SS et al. TABITHA. 2013;310(19): 1070-4154 (http://education.[employer].Appforma/faq/LBM902) Performed By: #### 7 600, 496, 25685 #### [facility] [address], [address] [place] [address] Line Analyst: Juan Meraz MD Cholesterol.total/Choles terol in HDL [Mass ratio] 2.3 {ratio} Normal <5.0 [facility] Comment on above: Order Comment: FASTI NG:NO FASTING: NO Performed By: #### 7 600, 496, 76870 #### [facility] [address], [address] [place] [address] Line Analyst: Juan Meraz MD NON HDL CHOLESTEROL 61 mg/dL (calc) Normal <130 [facility] Comment on above: Order Comment: FASTI NG:NO FASTING: NO Result Comment: For patients with diabetes plus 1 major ASCVD risk factor, treating to a non-HDL-C goal of <100 mg/dL (LDL-C of <70 mg/dL) is considered a therapeutic option. Performed By: #### 7 600, 496, 41599 #### [facility] [address] [place] [address], [address] [place] [address] Line Analyst: Juan Meraz MD Triglyceride [Mass/Vol] 102 mg/dL Normal <150 [facility] Comment on above: Order Comment: FASTI NG:NO FASTING: NO Performed By: #### 7 600, 496, 81091 #### [facility] [address], [address] [place] [address] Line Analyst: Juan Meraz MD CT ANKLE RT WO CONon 022 CT ANKLE RT WO CON Normal [facility] XR ANKLE RT MIN 3 VIEWSon XR ANKLE RT MIN 3 VIEWS Normal [facility] ACID FAST SMEAR AND CXon Acid Fast Culture Negative Normal [facility] Comment on above: Result Comment: No a rj fast bacilli isolated after 6 weeks. Performed By: #### A FB ####[facility] Vsqgrdxvwq[address] [place], [place] [address]Dr. Anjali Reagan Acid Fast Smear Negative Normal [facility] Comment on above: Performed By: #### A FB ####[facility] Iekybvfh[address] [place], [place] [address]Dr. Anjali Reagan [employer] Specimen Processing Direct Inoculation Normal [facility] Comment on above: Performed By: #### A FB ####[facility] Umnnixhsem4647 [place] [id number]. Anjali Reagan ACID FAST SMEAR AND CXon Acid Fast Culture Negative Normal [facility] Comment on above: Result Comment: No a rj fast bacilli isolated after 6 weeks. Performed By: #### A FB ####[facility] Pdwgpvuvjn9541 [place] [address]Dr. Anjali Reagan Acid Fast Smear Negative Normal [facility] Comment on above: Performed By: #### A FB ####[facility] Nnzswsigqd0136 [place] [address]Dr. Anjali [employer] Specimen Processing Tissue Grinding Normal [facility] Comment on above: Performed By: #### A FB ####[facility] Hahvvlibxd0708 [place] [address]Dr. Anjali Reagan [employer] Specimen Processing Direct Inoculation Normal [facility] Comment on above: Performed By: #### A FB ####[facility] Ssuzrhyiwm[address] [place], [place] [address]Dr. Anjali Reagan FUNGAL CULTUREon 03-15-2021 Fungus (Mycology) Culture Final report [facility] Comment on above: Performed By: #### C XFUN ####[facility] Ypzwppgmfz[address] [place], [place] [address]Dr. Anjali Reagan Fungus Stain Final report [facility] Comment on above: Performed By: #### C XFUN ####[facility] Dtcdojtowq[address] [place], [place] [address]Dr. Anjali Reagan Result 1 Comment [facility] Comment on above: Result Comment: MIRIAN/ Calcofluor preparation: no fungus observed. Performed By: #### C XFUN ####[facility] Mfanywlfpc[address] [place], [place] [address]Dr. Anjali Reagan Result Comment: No y east or mold isolated after 4 weeks. FUNGAL CULTUREon 03-09-2021 Fungus (Mycology) Culture Final report [facility] Comment on above: Performed By: #### C XFUN ####[facility] Euwywroeml[address] [place], [place] [address]Dr. Anjali Reagan Fungus Stain Final report Normal [facility] Comment on above: Performed By: #### C XFUN ####[facility] Jabckmmmog[address] [place], [place] [address]Dr. Anjali Reagan Result 1 Comment Normal The [facility] Comment on above: Result Comment: MIRIAN/ Calcofluor preparation: no fungus observed. Performed By: #### C XFUN ####[facility] [address]rm[address] [place], [place] [address]LdVeronica Reagan Result Comment: No y east or mold isolated after 4 weeks. XR ANKLE RT MIN 3 VIEWSon XR ANKLE RT MIN 3 VIEWS Normal [facility] Otolaryngology Office/Clinic Noteon 02-28-2021 Otolaryngology Office/Clinic [...] time. They were unable to travel to [place] as he required another right ankle surgery. [...] Dr. Freed. Previous pathology by physician in [place] about 1 year ago. PMHx of multiple [...] postauricular m (more content not included)... Normal [facility] CBC W MANUAL DIFFon 02-13-20 21 ATYPICAL LYMPH # Normal [facility] Comment on above: Performed By: #### C CORI ####[facility] Pttkxvttwy[address] [place], [place] [address]Dr. Anjali Reagan ATYPICAL LYMPH % Normal [facility] Comment on above: Performed By: #### C CORI ####[facility] Utcizxptdq[address] [place], [place] [address]Dr. Anjali Reagan BAND # 0.3 103/ul Normal 0.0-0.3 The [facility] Comment on above: Performed By: #### C CORI ####[facility] Mddvabhdeh[address] [place], [place] [address]Dr. Anjali Reagan BAND % 4 % Normal 0-5 [facility] Comment on above: Performed By: #### C CORI ####[facility] Mwkqsncmrk[address] [place], [place] [address]Dr. Anjali Reagan BASOM # 0.00 103/ul Normal 0.00-0.10 The [facility] Comment on above: Performed By: #### C CORI ####[facility] Thihrropug[address] [place], [place] [address]Dr. Anjali Reagan BASOM % 0.0 % Critically low 0.2-2.0 The [facility] Comment on above: Performed By: #### C CORI ####[facility] Vbbtjnimyy[address] [place], [place] [address]Dr. Anjali Reagan BLAST # Normal [facility] Comment on above: Performed By: #### C CORI ####[facility] Bzigeqcktl3580 [place] [address]Dr. Anjali Reagan BLAST % Normal [facility] Comment on above: Performed By: #### C CORI ####[facility] Axmyxmrcez2658 [place] [address]Dr. Anjali Reagan CORRECTED WBC Normal 4.0-11.0 The [facility] Comment on above: Performed By: #### C CORI ####[facility] Zsxegqmwjc7976 [place] [address]Dr. Anjali Reagan EOS # 0.28 103/ul Normal 0.00-0.70 The [facility] Comment on above: Performed By: #### C CORI ####[facility] T[address]wnxmcsqs[address] [place], [place] [address]Dr. Anjali Reagan EOS% 4.0 % Normal 0.9-7.0 [facility] Comment on above: Performed By: #### C CORI ####[facility] Ostwutezoi[address] [place], [place] [address]Dr. Anjali Reagan HCT 28.5 % Critically low 42.0-54.0 [facility] Comment on above: Performed By: #### C CORI ####[facility] Qlekfbolyj[address] [place], [place] [address]Dr. Anjali Reagan HGB 8.6 g/dl Critically low 14.0-18.0 The [facility] Comment on above: Performed By: #### C CORI ####[facility] Vocgioxbad[address] [place], [place] [address]Dr. Anjali Reagan HYPOCHROMASIA 3+ Normal The [facility] Comment on above: Performed By: #### C CORI ####[facility] Rtjnclcsko[address] [place], [place] [address]Dr. Anjali Reagan LYMPHM # 0.57 103/ul Critically low 1.20-3.80 The [facility] Comment on above: Performed By: #### C CORI ####[facility] Duemivzoir8041 [place] [id number]. Anjali Reagan LYMPHM% 8.0 % Critically low 20.5-60.0 The [facility] Comment on above: Performed By: #### C CORI ####[facility] Shmncqlbpm9210 [place] [address]Dr. Anjali Reagan MCH 25.4 pg Critically low 25.9-34.0 The [facility] Comment on above: Performed By: #### C CORI ####[facility] Ttsmgozfrd2208 [place] [address]Dr. Anjali Reagan MCHC 30.2 g/dl Normal 29.9-35.2 The [facility] Comment on above: Performed By: #### C CORI ####[facility] Muyfzsaexv0486 [place] [address]Dr. Anjali Reagan MCV 84.1 fL Normal 80.0-94.0 The [facility] Comment on above: Performed By: #### C CORI ####[facility] [address]wmfynwce[address] [place], [place] [address]Dr. Anjali Reagan METAMYELOCYTE # Normal [facility] Comment on above: Performed By: #### C CORI ####[facility] Mfiwkhnrwn[address] [place], [place] [address]Dr. Anjali Reagan METAMYELOCYTE % Normal [facility] Comment on above: Performed By: #### C CORI ####[facility] Bmczuerwqk3096 [place] [address]Dr. Anjali Reagan MICROCYTOSIS 2+ Normal [facility] Comment on above: Performed By: #### C CORI ####[facility] Txljoubmsg6602 [place] [address]Dr. Anjali Reagan MONOM# 0.14 103/ul Critically low 0.30-0.80 [facility] Comment on above: Performed By: #### C CORI ####[facility] K[address]vzmmb1947 [place] [address]Dr. Anjali Reagan MONOM% 2.0 % Normal 1.7-12.0 [facility] Comment on above: Performed By: #### C CORI ####[facility] Hrlsusufen5[address] [place], [place] [address]Og. Anjali Reagan MPV 9.3 fL Critically low 9.5-13.5 The [facility] Comment on above: Performed By: #### C CORI ####[facility] Xqdryeosgu5806 [place], [place] [address]Fo. Anjali Reagan MYELOCYTE # Normal [facility] Comment on above: Performed By: #### C CORI ####[facility] Cbbckfboxt3167 [place], [place] [address]Lq. Anjali Reagan MYELOCYTE % Normal [facility] Comment on above: Performed By: #### C CORI ####[facility] Cygpresxgr2725 [place] [id number]. Anjali Reagan NRBC 1 Normal [facility] Comment on above: Performed By: #### C CORI ####[facility] Qpwkeizvgw8241 [place] [address]Dr. Anjali Reagan PLT 186 103/ul Normal 150-450 [facility] Comment on above: Performed By: #### C CORI ####[facility] Pipbhtmlxb0078 [place] [address]Dr. Anjali Reagan RBC 3.39 106/ul Critically low 4.70-6.10 The [facility] Comment on above: Performed By: #### C CORI ####[facility] Zopwpmlsna8246 [place] [address]Dr. Anjali Reagan RDW 18.8 % Critically high 11.0-15.0 The [facility] Comment on above: Performed By: #### C CORI ####[facility] Msirsfdscp1450 [place] [address]Dr. Anjali Reagan SEG # 5.82 103/ul Normal 1.40-6.50 [facility] Comment on above: Performed By: #### C CORI ####[facility] Itjdngvltr0471 [place] [id number]. Anjali Reagan SEG % 82.0 % Critically high 43.0-75.0 The [facility] Comment on above: Performed By: #### C BCMAN ####[facility] Txiresvbfj7279 [place] [address]Dr. Anjali Reagan WBC 7.1 103/ul Normal 4.0-11.0 [facility] Comment on above: Performed By: #### C BCMAN ####[facility] Okbvjnagph1399 [place] [address]Dr. Anjali Reagan POINT OF CARE GLUCOSEon 01-31 Glucose [Mass/Vol] 175 mg/dL Critically high 74-106 [facility] Comment on above: Performed By: #### P OCGLUC ####[facility] Kaymknhvxw[address] [place], [place] [address]Dr. Anjali Reagan PROF 14(COMP METB)on 021 Albumin [Mass/Vol] 2.4 g/dL Critically low 3.5-5.0 [facility] Comment on above: Performed By: #### C MP ####[facility] Xerdkhkdup[address] [place], [place] [address]Dr. Anjali Reagan Albumin/Globulin [Mass ratio] 0.6 {ratio} Normal [facility] Comment on above: Performed By: #### C MP ####[facility] Stdhjuynkr[address] [place], [place] [address]Dr. Anjali Reagan ALP [Catalytic activity/Vol] 93 U/L Normal 38-126 [facility] Comment on above: Performed By: #### C MP ####[facility] Srtgkbjuys[address] [place], [place] [address]Dr. Anjali Reagan ALT [Catalytic activity/Vol] 18 U/L Critically low 21-72 [facility] Comment on above: Performed By: #### C MP ####[facility] Kntmojemxe230[address] [place], [place] [address]Dr. Anjali Reagan Anion gap [Moles/Vol] 12.5 mmol/L Normal [facility] Comment on above: Performed By: #### C MP ####[facility] Ioljhxfzra[address] [place], [place] [address]Dr. Anjali Reagan AST [Catalytic activity/Vol] 30 U/L Normal 17-59 [facility] Comment on above: Performed By: #### C MP ####[facility] Rpyazppxhw8972 [place] [address]Dr. Biancaramona Tez Bilirubin [Mass/Vol] 0.5 mg/dL Normal 0.2-1.3 [facility] Comment on above: Performed By: #### C MP ####[facility] Guwbrfborv[address] [place], [place] [address]Dr. Biancaramona Tez Calcium [Mass/Vol] 8.5 mg/dL Normal 8.4-10.2 [facility] Comment on above: Performed By: #### C MP ####[facility] Bzaoitovve[address] [place], [place] [address]Dr. Biancaramona Tez Chloride [Moles/Vol] 103 mmol/L Normal 98-107 [facility] Comment on above: Performed By: #### C MP ####[facility] Mtugxmixep[address] [place], [place] [address]Dr. Anjali Tez CO2 [Moles/Vol] 25.8 mmol/L Normal 22.0-30.0 [facility] Comment on above: Performed By: #### C MP ####[facility] Uzpwhuaczl[address] [place], [place] [address]Dr. Anjali Tez Creatinine [Mass/Vol] 1.09 mg/dL Normal 0.66-1.25 [facility] Comment on above: Performed By: #### C MP ####[facility] Mtreedmiwl[address] [place], [place] [address]Dr. Biancaramona Tez EGFR-AF ENGLISH >60 Normal >=60 [facility] Comment on above: Performed By: #### C MP ####[facility] Hbgfqhzzua[address] [place], [place] [address]Dr. Anjali Reagan EGFR-NON AF ENGLISH >60 Normal >=60 [facility] Comment on above: Performed By: #### C MP ####[facility] Fsblorhhlo106[address] [place], [place] [address]Dr. Anjali Reagan Globulin (S) [Mass/Vol] 3.7 g/dL Normal [facility] Comment on above: Performed By: #### C MP ####[facility] Zphnmcnqia5644 [place] [address]Dr. Anjali Reagan Glucose [Mass/Vol] 165 mg/dL Critically high 74-106 [facility] Comment on above: Performed By: #### C MP ####[facility] Kllpqatfqr3984 [place] [address]Dr. Anjali Reagan Potassium [Moles/Vol] 4.3 mmol/L Normal 3.4-5.0 [facility] Comment on above: Performed By: #### C MP ####[facility] Rpwlttkfpo0760 [place] [address]Dr. Anjali Reagan Protein [Mass/Vol] 6.1 g/dL Normal 6.1-8.2 [facility] Comment on above: Performed By: #### C MP ####[facility] Gwuvfwzgim[address] [place], [place] [address]Dr. Anjali Reagan Sodium [Moles/Vol] 137 mmol/L Normal 137-145 [facility] Comment on above: Performed By: #### C MP ####[facility] Nerugtubmg[address] [place], [place] [address]Dr. Anjali Reagan Urea nitrogen [Mass/Vol] 24.0 mg/dL Critically high 9.0-20 .0 [facility] Comment on above: Performed By: #### C MP ####[facility] Figklbsgfb1779 [place] [address]Dr. Anjali Reagan Urea nitrogen/Creatinine [Mass ratio] 22.0 mg/mg Normal [facility] Comment on above: Performed By: #### C MP ####[facility] Kuuxjrwnar038[address] [place], [place] [address]Dr. Anjali Tez ALBUMINon 02-11-2021 Albumin [Mass/Vol] 2.8 g/dL Critically low 3.5-5.0 [facility] Comment on above: Performed By: #### P REALB, ALB ####[facility] Dqdtssplvj[address] [place], [place] [address]Dr. Anjali Tez CBC AUTO DIFFon 02-11-2021 BASO # 0.0 103/ul Normal 0.0-0.1 [facility] Comment on above: Performed By: #### C BC ####[facility] Jnpcjmraju[address] [place], [place] [address]Dr. Anjali Reagan Basophils/100 WBC (Bld) 0.5 % Normal 0.2-2.0 [facility] Comment on above: Performed By: #### C BC ####[facility] Fysntmyeea[address] [place], [place] [address]Dr. Anjali Reagan EO # 0.5 103/ul Normal 0.0-0.7 [facility] Comment on above: Performed By: #### C BC ####[facility] Tvtqbhplin[address] [place], [place] [address]Dr. Anjali Tez Eosinophils/100 WBC (Bld) 7.4 % Critically high 0.9-7.0 [facility] Comment on above: Performed By: #### C BC ####[facility] Mnawuutmgg[address] [place], [place] [address]Dr. Anjali Reagan Erythrocyte distribution width (RBC) [Ratio] 18.7 % Critically high 11.0-15.0 [facility] Comment on above: Performed By: #### C BC ####[facility] Khsvhlwain[address] [place], [place] [address]Dr. Anjali Reagan Hematocrit (Bld) [Volume fraction] 30.7 % Critically low 42.0-54.0 [facility] Comment on above: Performed By: #### C BC ####[facility] Maqgcywjym[address] [place], [place] [address]Dr. Anjali Reagan Hemoglobin (Bld) [Mass/Vol] 9.5 g/dL Critically low 14.0-18.0 [facility] Comment on above: Performed By: #### C BC ####[facility] Kzyfdnnbdg[address] [place], [place] [address]Dr. Anjali Reagan IG # 0.05 10e3/ul Critically high 0.00-0.[address] [facility] Comment on above: Performed By: #### C BC ####[facility] Gonkjcaify6832 [place] [id number]. Anjali Reagan IG % 0.8 % Critically high 0.0-0.5 [facility] Comment on above: Performed By: #### C BC ####[facility] Olwbleipji9410 [place] [address]Dr. Anjali Reagan LYMPH # 0.6 103/ul Critically low 1.2-3.8 [facility] Comment on above: Performed By: #### C BC ####[facility] Eojshjhqew1003 [place] [address]Dr. Anjali Tez Lymphocytes/100 WBC (Bld) 8.5 % Critically low 20.5-60.0 [facility] Comment on above: Performed By: #### C BC ####[facility] Gkegofnqxn4846 [place] [address]Dr. Biancaramona Reagan MANUAL DIFF REQ NO Normal [facility] Comment on above: Performed By: #### C BC ####[facility] Kwgrtqvkat7465 [place] [address]Dr. Anjali Reagan MCH (RBC) [Entitic mass] 25.3 pg Critically low 25.9-34 .0 [facility] Comment on above: Performed By: #### C BC ####[facility] Yaeyfhhqft[address] [place], [place] [address]Dr. Anjali Reagan MCHC (RBC) [Mass/Vol] 30.9 g/dL Normal 29.9-35.2 [facility] Comment on above: Performed By: #### C BC ####[facility] Zpkvbljpwl1863 [place] [address]Dr. Anjali Reagan MCV (RBC) [Entitic vol] 81.6 fL Normal 80.0-94.0 [facility] Comment on above: Performed By: #### C BC ####[facility] Hqjxmddbwl[address] [place], [place] [address]Dr. Anjali Reagan MONO # 0.8 103/ul Normal 0.3-0.8 [facility] Comment on above: Performed By: #### C BC ####[facility] Rttrpxxymb9514 [place] [id number]. Anjali Reagan Monocytes/100 WBC (Bld) 12.2 % Critically high 1.7-12. 0 [facility] Comment on above: Performed By: #### C BC ####[facility] Wkxcxopltx5991 [place] [id number]. Anjali Reagan NEUT # 4.6 103/ul Normal 1.4-6.5 [facility] Comment on above: Performed By: #### C BC ####[facility] Uqbjpgbwyx9071 [place] [id number]. Anjali Reagan Neutrophils/100 WBC (Bld) 70.6 % Normal 43.0-75.0 [facility] Comment on above: Performed By: #### C BC ####[facility] Filzvofhbr2696 [place] [address]Dr. Anjali Reagan Platelet mean volume (Bld) [Entitic vol] 9.6 fL Normal 9.5-13.5 [facility] Comment on above: Performed By: #### C BC ####[facility] Nxceesplup[address] [place] [address]Dr. Anjali Reagan PLT 205 103/ul Normal 150-450 [facility] Comment on above: Performed By: #### C BC ####[facility] Trgshmomct65[address] [place] [id number]. Anjali Reagan RBC 3.76 106/ul Critically low 4.70-6.10 [facility] Comment on above: Performed By: #### C BC ####[facility] Aofwupmlso47[address] [place] [id number]. Anjali Reagan WBC 6.5 103/ul Normal 4.0-11.0 [facility] Comment on above: Performed By: #### C BC ####[facility] Bzjayuwsah07[address] [place] [id number]. Anjali Reagan CULTURE ANAEROBICon 02-12-20 21 CULTURE ANAEROBIC Specimen Comments: RIGHT ANKLE JOINT Culture Observations: NO GROWTH AT 72 HRS Normal [facility] Comment on above: Performed By: #### A NACX ####[facility] Wudocosnsu[address] [place] [id number]. Biancaramona Tez CULTURE OTHERon 02-11-2021 CULTURE OTHER Specimen Comments: RIGHT ANKLE JOINT Culture Observations: NO GROWTH AT 72 HRS Normal [facility] Comment on above: Performed By: #### O THCX ####[facility] Flyjkhxykh4[address] [place] [id number]. Anjali Reagan GRAM STAINon 02-11-2021 COMMENTS NO ORGANISMS OBSERVED Normal [facility] Comment on above: Performed By: #### G STAIN ####[facility] Piseiycwdr[address] [place], [place] [address]Dr. Anjali Reagan DIPHTHEROIDS Normal [facility] Comment on above: Performed By: #### G STAIN ####[facility] Bvfgmlxjty74[address] [place], [place] [address]Dr. Anjali Reagan EPITHELIALS Normal [facility] Comment on above: Performed By: #### G STAIN ####[facility] Gijtvtdhkt[address] [place], [place] [address]Dr. Anjali Reagan FUNGAL ELEMENTS Normal [facility] Comment on above: Performed By: #### G STAIN ####[facility] Bknxjkvvfz[address] [place], [place] [address]Dr. Anjali Reagan GRAM NEG BACILLI Normal [facility] Comment on above: Performed By: #### G STAIN ####[facility] Tykrjqtbmp[address] [place], [place] [address]Dr. Anjali Reagan GRAM NEG DIPPLOCOCCI Normal [facility] Comment on above: Performed By: #### G STAIN ####[facility] Wsddtwjkxx07[address] [place], [place] [address]Dr. Anjali Reagan GRAM POS BACILLI Normal [facility] Comment on above: Performed By: #### G STAIN ####[facility] Vvdciqllpj[address] [place], [place] [address]Dr. Anjali Reagan GRAM POSITIVE COCCI Normal [facility] Comment on above: Performed By: #### G STAIN ####[facility] Vzycmzqwjd154[address] [place], [place] [address]Dr. Anjali Reagan GRAM STAIN SOURCE Right ankle joint Normal [facility] Comment on above: Performed By: #### G STAIN ####[facility] Rmguxqrsbz3465 [place] [address]Dr. Anjali Reagan GS_DIPTH Normal [facility] Comment on above: Performed By: #### G STAIN ####[facility] Vghncjljxq55[address] [place] [address]Dr. Anjali Reagan WBC FEW Normal [facility] Comment on above: Performed By: #### G STAIN ####[facility] Jytuvqbfzu4[address] [place] [address]Dr. Anjali Reagan POINT OF CARE GLUCOSEon 01-31 Glucose [Mass/Vol] 196 mg/dL Critically high 74-106 [facility] Comment on above: Performed By: #### P OCGLUC ####[facility] Txdwfthlzw1625 [place] [address]Dr. Anjali Reagan Glucose [Mass/Vol] 176 mg/dL Critically high 74-106 [facility] Comment on above: Performed By: #### P OCGLUC ####[facility] Zsxzviwivl0406 [place] [address]Dr. Anjali Reagan PREALBUMINon 02-11-2021 Prealbumin [Mass/Vol] 17.8 mg/dL Normal 17.6-36.0 [facility] Comment on above: Performed By: #### P REALB, ALB ####[facility] Nhtwvfhohb8[address] [place] [address]Dr. Anjali Reagan PROF 14(COMP METB)on 021 Albumin [Mass/Vol] 2.6 g/dL Critically low 3.5-5.0 [facility] Comment on above: Performed By: #### B MP, CMP ####[facility] Eyxcisybhm6[address] [place] [address]Dr. Anjali Reagan Albumin/Globulin [Mass ratio] 0.6 {ratio} Normal [facility] Comment on above: Performed By: #### B MP, CMP ####[facility] Efvjkrlptw5156 [place] [address]Dr. Anjali Reagan ALP [Catalytic activity/Vol] 104 U/L Normal 38-126 [facility] Comment on above: Performed By: #### B MP, CMP ####[facility] Kalnyzyfse38[address] [place] [address]Dr. Anjali Reagan ALT [Catalytic activity/Vol] 17 U/L Critically low 21-72 [facility] Comment on above: Performed By: #### B MP, CMP ####[facility] Pxsdzhhcnp750[address] [place], [place] [address]Dr. Anjali Reagan AST [Catalytic activity/Vol] 26 U/L Normal 17-59 [facility] Comment on above: Performed By: #### B MP, CMP ####[facility] Nmexjhunkz[address] [place], [place] [address]Dr. Anjali Reagan Bilirubin [Mass/Vol] 0.5 mg/dL Normal 0.2-1.3 [facility] Comment on above: Performed By: #### B MP, CMP ####[facility] Mmedmjguxj270[address] [place], [place] [address]Dr. Anjali Reagan Globulin (S) [Mass/Vol] 4.1 g/dL Normal [facility] Comment on above: Performed By: #### B MP, CMP ####[facility] Iuralrbauq939[address] [place], [place] [address]Dr. Anjali Reagan Protein [Mass/Vol] 6.7 g/dL Normal 6.1-8.2 [facility] Comment on above: Performed By: #### B MP, CMP ####[facility] Pjbksablrf375[address] [place], [place] [address]Dr. Anjali Reagan PROF CHEM 8 (BAS METB)on Anion gap [Moles/Vol] 11.3 mmol/L Normal [facility] Comment on above: Performed By: #### B MP, CMP ####[facility] Jsprkehoyj0916[address] [place], [place] [address]Dr. Anjali Reagan Calcium [Mass/Vol] 9.0 mg/dL Normal 8.4-10.2 [facility] Comment on above: Performed By: #### B MP, CMP ####[facility] Ddhqvqbbms649[address] [place], [place] [address]Dr. Anjali Reagan Chloride [Moles/Vol] 101 mmol/L Normal 98-107 [facility] Comment on above: Performed By: #### B MP, CMP ####[facility] Zjgiikwhpb8[address] [place], [place] [address]Dr. Anjali Reagan CO2 [Moles/Vol] 28.0 mmol/L Normal 22.0-30.0 [facility] Comment on above: Performed By: #### B MP, CMP ####[facility] Iixyoddyoy24[address] [place], [place] [address]Dr. Anjali Reagan Creatinine [Mass/Vol] 1.23 mg/dL Normal 0.66-1.25 [facility] Comment on above: Performed By: #### B ALEA, CMP ####[facility] Ujuljegsrb508[address] [place], [place] [address]Dr. Anjali Reagan EGFR-AF ENGLISH >60 Normal >=60 The [facility] Comment on above: Performed By: #### Grace COSBY, CMP ####[facility] Okoksrpjnh36[address] [place], [place] [address]Dr. Anjali Reagan EGFR-NON AF ENGLISH 59 mL/min/1.73m2 Critically low >=60 [facility] Comment on above: Performed By: #### Grace COSBY, CMP ####[facility] Seedepndgz382[address] [place], [place] [address]Dr. Anjali Reagan Glucose [Mass/Vol] 109 mg/dL Critically high 74-106 [facility] Comment on above: Performed By: #### B ALEA, CMP ####[facility] Jvaqtulyjj615[address] [place], [place] [address]Dr. Anjali Tez Potassium [Moles/Vol] 3.9 mmol/L Normal 3.4-5.0 [facility] Comment on above: Performed By: #### B MP, CMP ####[facility] Pqgdfqtkxw5[address] [place], [place] [address]Dr. Biancaramona Reagan Sodium [Moles/Vol] 136 mmol/L Critically low 137-145 [facility] Comment on above: Performed By: #### B ALEA, CMP ####[facility] Xdvyyqnonz8155 [place] [address]Dr. Anjali Reagan Urea nitrogen [Mass/Vol] 32.0 mg/dL Critically high 9.0-20 .0 [facility] Comment on above: Performed By: #### B MP, CMP ####[facility] Zybtzuqcto[address] [place], [place] [address]Dr. Anjali Reagan Urea nitrogen/Creatinine [Mass ratio] 26.0 mg/mg Normal [facility] Comment on above: Performed By: #### B MP, CMP ####[facility] Jbyewjoxvx60[address] [place], [place] [address]Dr. Anjali Reagan VANCOMYCIN TROUGHon 02-12-20 VANCOMYCIN TROUGH 9.8 ug/ml Normal 5.0-20.[address] [facility] Comment on above: Performed By: #### V ANCT ####[facility] Pnvylhbokx826[address] [place], [place] [address]Dr. Anjali Tez XR ANKLE RT 2Von 02-11-2021 XR ANKLE RT 2V Normal [facility] XR FOOT RT MIN 3 VIEWSon XR FOOT RT MIN 3 VIEWS Normal [facility] CBC AUTO DIFFon 02-10-2021 BASO # 0.0 103/ul Normal 0.0-0.1 [facility] Comment on above: Performed By: #### C BC ####[facility] Mgkcencakf568[address] [place], [place] [address]Dr. Anjali Tez Basophils/100 WBC (Bld) 0.3 % Normal 0.2-2.0 [facility] Comment on above: Performed By: #### C BC ####[facility] Qsxnsxttfc3157 [place] [address]Dr. Anjali Tez EO # 0.2 103/ul Normal 0.0-0.7 [facility] Comment on above: Performed By: #### C BC ####[facility] Lxrtpqnach298[address] [place], [place] [address]Dr. Anjali Tez Eosinophils/100 WBC (Bld) 2.7 % Normal 0.9-7.0 [facility] Comment on above: Performed By: #### C BC ####[facility] Vkouraukyg[address] [place] [address]Dr. Anjali Reagan Erythrocyte distribution width (RBC) [Ratio] 18.8 % Critically high 11.0-15.0 [facility] Comment on above: Performed By: #### C BC ####[facility] Ahjmjijycb6322 [place] [address]Dr. Anjali Reagan Hematocrit (Bld) [Volume fraction] 31.6 % Critically low 42.0-54.0 [facility] Comment on above: Performed By: #### C BC ####[facility] Gkprtptroh9321 [place] [address]Dr. Anjali Reagan Hemoglobin (Bld) [Mass/Vol] 9.6 g/dL Critically low 14.0-18.0 [facility] Comment on above: Performed By: #### C BC ####[facility] Yhdoyqgzmw496[address] [place], [place] [address]Dr. Anjali Reagan IG # 0.04 10e3/ul Critically high 0.00-0.[address] [facility] Comment on above: Performed By: #### C BC ####[facility] Locbypbjaf286[address] [place], [place] [address]Dr. Anjali Reagan IG % 0.6 % Critically high 0.0-0.5 [facility] Comment on above: Performed By: #### C BC ####[facility] Sdmlrwxxuh022[address] [place], [place] [address]Dr. Anjali Reagan LYMPH # 0.9 103/ul Critically low 1.2-3.8 The [facility] Comment on above: Performed By: #### C BC ####[facility] Etyezquuwf8905 [place] [address]Dr. Anjali Reagan Lymphocytes/100 WBC (Bld) 12.2 % Critically low 20.5-60.0 [facility] Comment on above: Performed By: #### C BC ####[facility] Jhhrgmdblo150[address] [place], [place] [address]Dr. Anjali Reagan MANUAL DIFF REQ NO Normal [facility] Comment on above: Performed By: #### C BC ####[facility] Ublpgxyjea0774 [place] [id number]. Anjali Tez MCH (RBC) [Entitic mass] 24.7 pg Critically low 25.9-34 .0 [facility] Comment on above: Performed By: #### C BC ####[facility] Hlaawoznja13[address] [place] [address]Dr. Anjali Tez MCHC (RBC) [Mass/Vol] 30.4 g/dL Normal 29.9-35.2 [facility] Comment on above: Performed By: #### C BC ####[facility] Fddihvxtfh7987 [place] [address]Dr. Anjali Reagan MCV (RBC) [Entitic vol] 81.4 fL Normal 80.0-94.0 [facility] Comment on above: Performed By: #### C BC ####[facility] Fkgoewzqfz7[address] [place], [place] [address]Dr. Anjali Reagan MONO # 0.7 103/ul Normal 0.3-0.8 [facility] Comment on above: Performed By: #### C BC ####[facility] Bocjxbksju634[address] [place], [place] [address]Dr. Anjali Reagan Monocytes/100 WBC (Bld) 9.9 % Normal 1.7-12.0 [facility] Comment on above: Performed By: #### C BC ####[facility] Ksiibtgfgy35[address] [place], [place] [address]Dr. Anjali Reagan NEUT # 5.3 103/ul Normal 1.4-6.5 [facility] Comment on above: Performed By: #### C BC ####[facility] Aobjxplriu888[address] [place], [place] [address]Dr. Anjali Reagan Neutrophils/100 WBC (Bld) 74.3 % Normal 43.0-75.0 [facility] Comment on above: Performed By: #### C BC ####[facility] Knpemfrdnn415[address] [place], [place] [address]Dr. Anjali Reagan Platelet mean volume (Bld) [Entitic vol] 9.6 fL Normal 9.5-13.5 [facility] Comment on above: Performed By: #### C BC ####[facility] Cswhqqsvia5130 [place] [id number]. Anjali Reagan PLT 218 103/ul Normal 150-450 [facility] Comment on above: Performed By: #### C BC ####[facility] Tjxqurpxxl8480 [place], [place] [address]Zn. Biancaramona Reagan RBC 3.88 106/ul Critically low 4.70-6.10 [facility] Comment on above: Performed By: #### C BC ####[facility] Oxnlihgecm7335 [place] [id number]. Anjali Reagan WBC 7.1 103/ul Normal 4.0-11.0 [facility] Comment on above: Performed By: #### C BC ####[facility] Okqezoveft2643 [place] [address]Dr. Anjali Reagan POINT OF CARE GLUCOSEon 01-31 Glucose [Mass/Vol] 219 mg/dL Critically high 74-106 [facility] Comment on above: Performed By: #### P OCGLUC ####[facility] Bkkzsluovb1808 [place] [address]Dr. Anjali Reagan Glucose [Mass/Vol] 136 mg/dL Critically high 74-106 [facility] Comment on above: Performed By: #### P OCGLUC ####[facility] Hvvvxipsql8362 [place] [id number]. Anjali Reagan Glucose [Mass/Vol] 119 mg/dL Critically high 74-106 [facility] Comment on above: Performed By: #### P OCGLUC ####[facility] Jyiwarvukt2880 [place] [phone]. Anjali Reagan PROF 14(COMP METB)on 021 Albumin [Mass/Vol] 2.8 g/dL Critically low 3.5-5.0 [facility] Comment on above: Performed By: #### C MP, BMP ####[facility] Vhlzgirwqw7188 [place] [address]Dr. Anjali Reagan Albumin/Globulin [Mass ratio] 0.7 {ratio} Normal [facility] Comment on above: Performed By: #### C MP, BMP ####[facility] Wbkrpcakzr6299 [place] [address]Dr. Anjali Reagan ALP [Catalytic activity/Vol] 109 U/L Normal 38-126 [facility] Comment on above: Performed By: #### C MP, BMP ####[facility] Pzumnbfjsg20[address] [place], [place] [address]Dr. Anjali Reagan ALT [Catalytic activity/Vol] 23 U/L Normal 21-72 [facility] Comment on above: Performed By: #### C MP, BMP ####[facility] Dvqsmvsoxi834[address] [place], [place] [address]Dr. Anjali Reagan AST [Catalytic activity/Vol] 24 U/L Normal 17-59 [facility] Comment on above: Performed By: #### C MP, BMP ####[facility] Dhunqbclzp734[address] [place], [place] [address]Dr. Anjali Reagan Bilirubin [Mass/Vol] 0.4 mg/dL Normal 0.2-1.3 [facility] Comment on above: Performed By: #### C MP, BMP ####[facility] Mqwpjajaaf166[address] [place], [place] [address]Dr. Anjali Reagan Globulin (S) [Mass/Vol] 4.1 g/dL Normal [facility] Comment on above: Performed By: #### C MP, BMP ####[facility] Pfceaqdcxo612[address] [place], [place] [address]Dr. Anjali Reagan Protein [Mass/Vol] 6.9 g/dL Normal 6.1-8.2 [facility] Comment on above: Performed By: #### C MP, BMP ####[facility] Nbubtgedsb49220[address] [place], [place] [address]Dr. Anjali Reagan PROF CHEM 8 (BAS METB)on Anion gap [Moles/Vol] 13.0 mmol/L Normal [facility] Comment on above: Performed By: #### C MP, BMP ####[facility] Qvuwgandjq526[address] [place], [place] [address]Dr. Anjali Reagan Calcium [Mass/Vol] 9.4 mg/dL Normal 8.4-10.2 The [facility] Comment on above: Performed By: #### C ALEA, BMP ####[facility] Obgonhjufq47[address] [place] [address]Dr. Anjali Reagan Chloride [Moles/Vol] 104 mmol/L Normal 98-107 [facility] Comment on above: Performed By: #### C ALEA, BMP ####[facility] Xsvzuldmxi0054 [place] [address]Dr. Anjali Reagan CO2 [Moles/Vol] 27.7 mmol/L Normal 22.0-30.0 [facility] Comment on above: Performed By: #### C ALEA, BMP ####[facility] Ubyzaqxwtr718[address] [place], [place] [address]Dr. Anjali Reagan Creatinine [Mass/Vol] 1.19 mg/dL Normal 0.66-1.25 [facility] Comment on above: Performed By: #### C ALEA, BMP ####[facility] Fggdvsnhvf1969[address] [place], [place] [address]Dr. Anjali Reagan EGFR-AF ENGLISH >60 Normal >=60 [facility] Comment on above: Performed By: #### C ALEA, BMP ####[facility] Slcbtcxgly878[address] [place], [place] [address]Dr. Anjali Reagan EGFR-NON AF ENGLISH >60 Normal >=60 [facility] Comment on above: Performed By: #### C ALEA, BMP ####[facility] Byinhsrgue[address] [place], [place] [address]Dr. Anjali Reagan Glucose [Mass/Vol] 81 mg/dL Normal 74-106 The [facility] Comment on above: Performed By: #### C ALEA, BMP ####[facility] Fdsdnvfvrc469[address] [place], [place] [address]Dr. Anjali Reagan Potassium [Moles/Vol] 4.1 mmol/L Normal 3.4-5.0 [facility] Comment on above: Performed By: #### C ALEA, BMP ####[facility] Rkechkcotn885[address] [place], [place] [address]Dr. Anjali Reagan Sodium [Moles/Vol] 141 mmol/L Normal 137-145 The [facility] Comment on above: Performed By: #### C ALEA, BMP ####[facility] Cvqownrlui384[address] [place], [place] [address]Dr. Anjali Reagan Urea nitrogen [Mass/Vol] 41.0 mg/dL Critically high 9.0-20 .0 [facility] Comment on above: Performed By: #### C ALEA, BMP ####[facility] Bffkjqvdms620[address] [place], [place] [address]Dr. Anjali Tez Urea nitrogen/Creatinine [Mass ratio] 34.4 mg/mg Normal [facility] Comment on above: Performed By: #### C ALEA, BMP ####[facility] Lpkmtyqacv532[address] [place], [place] [address]Dr. Anjali Tez CBC W MANUAL DIFFon 02-10-20 21 ANISOCYTOSIS SLIGHT Normal [facility] Comment on above: Performed By: #### C CORI ####[facility] Cvdiyhzxqt[address] [place], [place] [address]Dr. Anjali Tez ATYPICAL LYMPH # Normal [facility] Comment on above: Performed By: #### Uzair PERSAUD ####[facility] Rmtqqvyamc[address] [place], [place] [address]Dr. Anjali Reagan ATYPICAL LYMPH % Normal [facility] Comment on above: Performed By: #### Uzair PERSAUD ####[facility] Codqcbwakf[address] [place], [place] [address]Dr. Anjali Reagan BAND # Normal 0.0-0.3 [facility] Comment on above: Performed By: #### C CORI ####[facility] Zrgnsvglvl[address] [place], [place] [address]Dr. Anjali Reagan BAND % Normal 0-5 [facility] Comment on above: Performed By: #### C CORI ####[facility] Grugbigwnk[address] [place], [place] [address]Dr. Anjali Reagan BASOM # 0.00 103/ul Normal 0.00-0.10 [facility] Comment on above: Performed By: #### C CORI ####[facility] Ltyxmlqqhy1858 [place] [id number]. Anjali Reagan BASOM % 0.0 % Critically low 0.2-2.0 [facility] Comment on above: Performed By: #### C BCMAN ####[facility] Frtusosffn4349 [place], [place] [address]Hh. Anjali Reagan BLAST # Normal [facility] Comment on above: Performed By: #### C BCFIONA ####[facility] Xpurzmubpk3250 [place] [id number]. Anjali Reagan BLAST % Normal [facility] Comment on above: Performed By: #### C BCFIONA ####[facility] Xpozkmrtwx2007 [place] [phone]. Anjali Reagan CORRECTED WBC Normal 4.0-11.0 The [facility] Comment on above: Performed By: #### C CORI ####[facility] Fezxbevuhs8349 [place] [id number]. Anjali Reagan EOS # 0.00 103/ul Normal 0.00-0.70 [facility] Comment on above: Performed By: #### C BCFIONA ####[facility] Xtrfhdkhpp9823 [place] [id number]. Anjali Reagan EOS% 0.0 % Critically low 0.9-7.0 The [facility] Comment on above: Performed By: #### C CORI ####[facility] Alzoxxsdpu0071 [place] [id number]. Anjali Reagan HCT 31.1 % Critically low 42.0-54.0 [facility] Comment on above: Performed By: #### C BCFIONA ####[facility] Himfvaeetl9217 [place] [id number]. Anjali Reagan HGB 9.6 g/dl Critically low 14.0-18.0 [facility] Comment on above: Performed By: #### C BCFIONA ####[facility] Fbojpgdihd1950 [place] [phone]. Anjali Reagan LYMPHM # 0.73 103/ul Critically low 1.20-3.80 [facility] Comment on above: Performed By: #### C CORI ####[facility] Gstifjllsw4526 [place] [address]Dr. Anjali Reagan LYMPHM% 7.0 % Critically low 20.5-60.0 [facility] Comment on above: Performed By: #### C CORI ####[facility] Nnkskclusr9021 [place] [address]Dr. Anjali Reagan MCH 25.1 pg Critically low 25.9-34.0 [facility] Comment on above: Performed By: #### C CORI ####[facility] Xswiaczwof5809 [place] [address]Dr. Anjali Reagan MCHC 30.9 g/dl Normal 29.9-35.2 [facility] Comment on above: Performed By: #### C CORI ####[facility] Qmokbwmvmi[address] [place], [place] [address]Dr. Anjali Reagan MCV 81.4 fL Normal 80.0-94.0 [facility] Comment on above: Performed By: #### C CORI ####[facility] Sdbnjljxtt[address] [place], [place] [address]Dr. Anjali Reagan METAMYELOCYTE # Normal [facility] Comment on above: Performed By: #### C CORI ####[facility] Egyznsqkpc3949 [place] [address]Dr. Anjali Reagan METAMYELOCYTE % Normal [facility] Comment on above: Performed By: #### C CORI ####[facility] Jtwhyhujbd7857 [place] [address]Dr. Anjali Reagan MONOM# 0.31 103/ul Normal 0.30-0.80 [facility] Comment on above: Performed By: #### C CORI ####[facility] Ihpelanbfo9478 [place] [address]Dr. Anjali Reagan MONOM% 3.0 % Normal 1.7-12.0 [facility] Comment on above: Performed By: #### C CORI ####[facility] [address]bbhuybn36[address] [place] [id number]. Anjali Reagan MPV 9.9 fL Normal 9.5-13.5 [facility] Comment on above: Performed By: #### C CORI ####[facility] Owklxmaziw[address] [place] [phone]. Anjali Reagan MYELOCYTE # Normal [facility] Comment on above: Performed By: #### C CORI ####[facility] Jumhuurcrf[address] [place] [id number]. Anjali Reagan MYELOCYTE % Normal [facility] Comment on above: Performed By: #### C CORI ####[facility] Gutiibkzjf[address] [place] [address]Dr. Anjali Reagan NRBC Normal [facility] Comment on above: Performed By: #### C CORI ####[facility] Trcieamkjg8668 [place] [id number]. Anjali Reagan OVALOCYTES SLIGHT Normal [facility] Comment on above: Performed By: #### C CORI ####[facility] Zcnytdiagt8737 [place] [id number]. Anjali Reagan PLT 211 103/ul Normal 150-450 [facility] Comment on above: Performed By: #### C CORI ####[facility] Loskzxegcr5114 [place] [id number]. Anjali Reagan POIKILOCYTOSIS SLIGHT Normal The [facility] Comment on above: Performed By: #### C CORI ####[facility] Aobjnvpfkp9210 [place] [id number]. Anjali Reagan RBC 3.82 106/ul Critically low 4.70-6.10 The [facility] Comment on above: Performed By: #### C CORI ####[facility] Titcegnydk2413 [place] [id number]. Anjali Reagan RDW 18.4 % Critically high 11.0-15.0 [facility] Comment on above: Performed By: #### C CORI ####[facility] Yrzliabq[address] [place], [place] [address]Dr. Anjali Reagan SEG # 9.36 103/ul Critically high 1.40-6.50 [facility] Comment on above: Performed By: #### C SAUMYAMAN ####[facility] Uazyiucjwg5[address] [place] [phone]. Anjali Reagan SEG % 90.0 % Critically high 43.0-75.0 [facility] Comment on above: Performed By: #### C CORI ####[facility] Joodmkjftj7754 [place] [phone]. Anjali Reagan WBC 10.4 103/ul Normal 4.0-11.0 [facility] Comment on above: Performed By: #### C CORI ####[facility] Cnzlrnwsqh5[address] [place] [address]Dr. Anjali Reagan HEP B SURFACE ANTIGEN SCREEN on 02-09-2021 HBsAg Screen Negative Normal Negative [facility] Comment on above: Performed By: #### H BSANS ####[facility] Cjeqditeoh88[address] [place] [address]Dr. Anjali Reagan HEPATITIS C ANTIBODYon 02-09 Hep C Virus Ab <0.1 Normal 0.0-0.9 [facility] Comment on above: Result Comment: Nega tive: < 0.8 Indeterminate: 0.8 - 0.9 Positive: > 0.9 . The CDC recommends that a positive HCV antibody result be followed up with a HCV Nucleic Acid Amplification test (081000). Performed By: #### H CV ####[facility] Rdyvwkokik6[address] [place] [address]Dr. Anjali Reagan HIV 1 AND 2 WITH REFLEXon HIV Screen 4th Generation wRfx Non-Reactive Normal Non Reactive [facility] Comment on above: Performed By: #### H IV12 ####[facility] Unrzhcfbfq93[address] [place] [address]Dr. Anjali Reagan POINT OF CARE GLUCOSEon 01-31 Glucose [Mass/Vol] 170 mg/dL Critically high 74-106 [facility] Comment on above: Performed By: #### P OCGLUC ####[facility] Tegegyhewx9173 [place] [address]Dr. Anjali Tez Glucose [Mass/Vol] 265 mg/dL Critically high 74-106 [facility] Comment on above: Performed By: #### P OCGLUC ####[facility] Qlnnlopxuw9583 [place] [address]Dr. Anjali Reagan Glucose [Mass/Vol] 319 mg/dL Critically high 74-106 [facility] Comment on above: Performed By: #### P OCGLUC ####[facility] Alhlqyscna5466 [place] [address]Dr. Anjali Reagan PROF 14(COMP METB)on 021 Albumin [Mass/Vol] 2.8 g/dL Critically low 3.5-5.0 [facility] Comment on above: Performed By: #### C MP ####[facility] Iprrriykha7374 [place] [address]Dr. Anjali Reagan Albumin/Globulin [Mass ratio] 0.7 {ratio} Normal [facility] Comment on above: Performed By: #### C MP ####[facility] Czfebzswri3008 [place] [address]Dr. Biancaramona Reagan ALP [Catalytic activity/Vol] 117 U/L Normal 38-126 [facility] Comment on above: Performed By: #### C MP ####[facility] Asvayxxuto1996 [place] [address]Dr. Anjali Reagan ALT [Catalytic activity/Vol] 21 U/L Normal 21-72 [facility] Comment on above: Performed By: #### C MP ####[facility] Kumecbtgug9898 [place] [address]Dr. Anjali Reagan Anion gap [Moles/Vol] 13.0 mmol/L Normal [facility] Comment on above: Performed By: #### C MP ####[facility] Nnrxnktxyg7915 [place] [address]Dr. Anjali Reagan AST [Catalytic activity/Vol] 21 U/L Normal 17-59 [facility] Comment on above: Performed By: #### C MP ####[facility] Lvgcwdzlgz6730 [place] [address]Dr. Anjali Reagan Bilirubin [Mass/Vol] 0.5 mg/dL Normal 0.2-1.3 [facility] Comment on above: Performed By: #### C MP ####[facility] Abkhbcohbm[address] [place], [place] [address]Dr. Anjali Reagan Calcium [Mass/Vol] 9.3 mg/dL Normal 8.4-10.2 [facility] Comment on above: Performed By: #### C MP ####[facility] Hoaptkoaje[address] [place], [place] [address]Dr. Anjali Reagan Chloride [Moles/Vol] 100 mmol/L Normal 98-107 [facility] Comment on above: Performed By: #### C MP ####[facility] Mjdmedfmqp232[address] [place], [place] [address]Dr. Anjali Reagan CO2 [Moles/Vol] 27.5 mmol/L Normal 22.0-30.0 [facility] Comment on above: Performed By: #### C MP ####[facility] Qiaswnjmeg963[address] [place], [place] [address]Dr. Anjali Reagan Creatinine [Mass/Vol] 1.49 mg/dL Critically high 0.66-1.25 [facility] Comment on above: Performed By: #### C MP ####[facility] Xhwwhkcyav[address] [place], [place] [address]Dr. Anjali Reagan EGFR-AF ENGLISH 58 mL/min/1.73m2 Critically low >=60 [facility] Comment on above: Performed By: #### C MP ####[facility] Ptbqkrbjtk20[address] [place], [place] [address]Dr. Anjali Tez EGFR-NON AF ENGLISH 48 mL/min/1.73m2 Critically low >=60 [facility] Comment on above: Performed By: #### C MP ####[facility] Zhfabynqvm336[address] [place], [place] [address]Dr. Anjali Tez Globulin (S) [Mass/Vol] 4.2 g/dL Normal [facility] Comment on above: Performed By: #### C MP ####[facility] Pstqacfbwj[address] [place], [place] [address]Dr. Anjali Reagan Glucose [Mass/Vol] 276 mg/dL Critically high 74-106 [facility] Comment on above: Performed By: #### C MP ####[facility] Rlmzfdpyjm2640 [place] [address]Dr. Anjali Reagan Potassium [Moles/Vol] 4.5 mmol/L Normal 3.4-5.0 [facility] Comment on above: Performed By: #### C MP ####[facility] Ugxrhiuqdb5409 [place] [address]Dr. Anjali Reagan Protein [Mass/Vol] 7.0 g/dL Normal 6.1-8.2 [facility] Comment on above: Performed By: #### C MP ####[facility] Nlchucjhss[address] [place], [place] [address]Dr. Anjali Reagan Sodium [Moles/Vol] 136 mmol/L Critically low 137-145 [facility] Comment on above: Performed By: #### C MP ####[facility] Mkuhwaynee70[address] [place], [place] [address]Dr. Anjali Reagan Urea nitrogen [Mass/Vol] 42.0 mg/dL Critically high 9.0-20 .0 [facility] Comment on above: Performed By: #### C MP ####[facility] Wpzbyaamez87[address] [place], [place] [address]Dr. Anjali Reagan Urea nitrogen/Creatinine [Mass ratio] 28.2 mg/mg Normal [facility] Comment on above: Performed By: #### C MP ####[facility] Cvytbjarwt2091 [place] [address]Dr. Anjali Reagan RPR QUANTon 02-09-2021 Rapid Plasma Reagin, Quant Non-Reactive Normal NonRea<1:1 [facility] Comment on above: Performed By: #### R PRQ ####[facility] Swjxdoynag9725 [place] [address]Dr. Anjali Reagan XR ANKLE RT 2Von 02-09-2021 XR ANKLE RT 2V Normal [facility] XR TIB_FIB RT 2Von 11-10-202 1 XR TIB_FIB RT 2V Normal [facility] CRPon 02-08-2021 CRP 3.2 mg/dL Critically high <=1.0 [facility] Comment on above: Performed By: #### C RP ####[facility] Phiyndxndo0195 [place] [id number]. Anjali Reagan CULTURE ANAEROBICon 02-09-20 21 CULTURE ANAEROBIC Specimen Comments: RIGHT FOOT IRRIGATION SWAB Culture Observations: NO GROWTH AT 72 HRS Normal [facility] Comment on above: Performed By: #### A NACX ####[facility] Fzfjnoqwmg1039 [place] [phone]. Yilan Reagan CULTURE ANAEROBIC Specimen Comments: RIGHT LEG REAMINGS Culture Observations: NO GROWTH OF ANAEROBES AT 72 HOURS. Normal [facility] Comment on above: Performed By: #### A NACX ####[facility] Xzixpprttm[address] [place], [place] [address]Dr. Yilan Reagan CULTURE ANAEROBIC Culture Observations : NO GROWTH AT 72 HRS [facility] Comment on above: Performed By: #### A NACX ####[facility] Pozmeyjvyp[address] [place], [place] [address]Dr. Yilan Reagan CULTURE ANAEROBIC Specimen Comments: RIGHT TIBIA BONE Culture Observations: NO GROWTH AT 72 HRS [facility] Comment on above: Performed By: #### A NACX ####[facility] Ugeawyksxj[address] [place], [place] [address]Dr. Yilan Reagan CULTURE ANAEROBIC Specimen Comments: RIGHT CALCANEOUS BONE Culture Observations: NO GROWTH OF ANAEROBES AT 72 HOURS. Normal [facility] Comment on above: Performed By: #### A NACX ####[facility] Jnprpyzwbe3445 [place] [phone]. Yilan Reagan CULTURE ANAEROBIC Specimen Comments: RIGHT ANKLE ABSCESS Culture Observations: NO GROWTH AT 72 HRS [facility] Comment on above: Performed By: #### A NACX ####[facility] Pnvgnaztnj1296 [place] [phone]. Biancalan Reagan CULTURE OTHERon 02-08-2021 CULTURE OTHER Specimen Comments: RIGHT LEG REAMINGS Culture Observations: NORMAL SKIN ARELI. Normal [facility] Comment on above: Performed By: #### O THCX ####[facility] Mbmcrgxgeg5773 [place], [place] [address]Ma. Yilan Reagan CULTURE OTHER Specimen Comments: RIGHT FOOT IRRIGATION SWAB Culture Observations: NO GROWTH AT 72 HRS [facility] Comment on above: Performed By: #### O THCX ####[facility] Ssdiqoygdu2551 [place], [place] [address]Sj. Yilan Reagan CULTURE OTHER Specimen Comments: RIGHT CALCANEOUS BONE Culture Observations: NORMAL SKIN ARELI. Normal [facility] Comment on above: Performed By: #### O THCX ####[facility] Mfzdbzqpgr2315 [place], [place] [address]Da. Yilan Reagan CULTURE OTHER Specimen Comments: RIGHT TIBIA BONE Culture Observations: NO GROWTH AT 72 HRS [facility] Comment on above: Performed By: #### O THCX ####[facility] Hwpkktogpf2201 [place] [phone]. Yilan Reagan CULTURE OTHER Specimen Comments: RIGHT TALUS BONE Culture Observations: NORMAL SKIN ARELI. Normal [facility] Comment on above: Performed By: #### O THCX ####[facility] Jfvcsvdrcn[address] [place], [place] [address]Dr. Yilan Reagan CULTURE OTHER Specimen Comments: RIGHT ANKLE ABSCESS Culture Observations: NO GROWTH AT 72 HRS [facility] Comment on above: Performed By: #### O THCX ####[facility] Mklrhswlqq6160 [place] [phone]. Anjali Reagan GRAM STAINon 02-08-2021 COMMENTS NO ORGANISMS OBSERVED Normal [facility] Comment on above: Performed By: #### G STAIN ####[facility] Grjxfteava0586 [place] [phone]. Anjali Reagan DIPHTHEROIDS Normal [facility] Comment on above: Performed By: #### G STAIN ####[facility] Brtrtrzfwq[address] [place], [place] [address]Dr. Anjali Reagan EPITHELIALS Normal [facility] Comment on above: Performed By: #### G STAIN ####[facility] Yogebxuzuc314[address] [place], [place] [address]Dr. Anjali Reagan FUNGAL ELEMENTS Normal [facility] Comment on above: Performed By: #### G STAIN ####[facility] Uagbgzkeyh3533 [place] [address]Dr. Anjali Reagan GRAM NEG BACILLI Normal [facility] Comment on above: Performed By: #### G STAIN ####[facility] Vnnylcybei4858 [place] [address]Dr. Anjali Reagan GRAM NEG DIPPLOCOCCI Normal [facility] Comment on above: Performed By: #### G STAIN ####[facility] Bbzmjckuny6431 [place] [address]Dr. Anjali Reagan GRAM POS BACILLI Normal [facility] Comment on above: Performed By: #### G STAIN ####[facility] Wuoqreegwu17[address] [place], [place] [address]Dr. Anjali Reagan GRAM POSITIVE COCCI Normal [facility] Comment on above: Performed By: #### G STAIN ####[facility] Sgyrftmyyn[address] [place], [place] [address]Dr. Anjali Reagan GRAM STAIN SOURCE RIGHT LEG REAMINGS Normal [facility] Comment on above: Performed By: #### G STAIN ####[facility] Ltbajyclpf[address] [place], [place] [address]Dr. Anjali Reagan GRAM STAIN SOURCE RIGHT FOOT POST IRRIGATION SWAB Normal [facility] Comment on above: Performed By: #### G STAIN ####[facility] Uwnmpscwto[address] [place], [place] [address]Dr. Anjali Reagan GS_DIPTH Normal [facility] Comment on above: Performed By: #### G STAIN ####[facility] Wltptkndfg7765 [place] [address]Dr. Anjali Reagan WBC MODERATE Normal [facility] Comment on above: Performed By: #### G STAIN ####[facility] Oayhohzptq424[address] [place], [place] [address]Dr. Anjali Reagan WBC NONE SEEN Normal [facility] Comment on above: Performed By: #### G STAIN ####[facility] Qqngkzftlk[address] [place], [place] [address]Dr. Anjali Reagan COMMENTS NO ORGANISMS OBSERVED Normal [facility] Comment on above: Performed By: #### G STAIN ####[facility] Eojuzuftyv3771 [place] [address]Dr. Anjali Reagan DIPHTHEROIDS Normal [facility] Comment on above: Performed By: #### G STAIN ####[facility] Fadimnyqwh7036 [place] [phone]. Anjali Reagan EPITHELIALS Normal [facility] Comment on above: Performed By: #### G STAIN ####[facility] Jtyfnmcuov2937 [place] [address]Dr. Anjali Reagan FUNGAL ELEMENTS Normal [facility] Comment on above: Performed By: #### G STAIN ####[facility] Pyoxdecaxo355[address] [place], [place] [address]Dr. Anjali Reagan GRAM NEG BACILLI Normal [facility] Comment on above: Performed By: #### G STAIN ####[facility] Fcczrhpnbe[address] [place], [place] [address]Dr. Anjali Reagan GRAM NEG DIPPLOCOCCI Normal [facility] Comment on above: Performed By: #### G STAIN ####[facility] Havktcinwa6265 [place] [address]Dr. Anjali Reagan GRAM POS BACILLI Normal [facility] Comment on above: Performed By: #### G STAIN ####[facility] Seiqufkmyh1942 [place] [address]Dr. Anjali Reagan GRAM POSITIVE COCCI Normal [facility] Comment on above: Performed By: #### G STAIN ####[facility] Ecsrftgrmw5517 [place] [address]Dr. Anjali Reagan GRAM STAIN SOURCE RIGHT TIBIA BONE Normal [facility] Comment on above: Performed By: #### G STAIN ####[facility] Dswpwvwpmy5306 [place] [address]Dr. Anjali Reagan GRAM STAIN SOURCE RIGHT CALCANEOUS BONE Normal [facility] Comment on above: Performed By: #### G STAIN ####[facility] Yycipipoob2328 [place] [address]Dr. Anjali Reagan GRAM STAIN SOURCE RIGHT TALUS BONE Normal [facility] Comment on above: Performed By: #### G STAIN ####[facility] Bjocrkbvvq2377 [place] [phone]. Anjali Reagan GS_DIPTH Normal [facility] Comment on above: Performed By: #### G STAIN ####[facility] Gmvtlkzqlz6536 [place] [address]Dr. Anjali Reagan WBC NONE SEEN Normal [facility] Comment on above: Performed By: #### G STAIN ####[facility] Uhcqpfwmkn6088 [place] [address]Dr. Anjali Reagan WBC FEW Normal [facility] Comment on above: Performed By: #### G STAIN ####[facility] Wckuvxjzzb1370 [place] [address]Dr. Anjali Reagan COMMENTS NO ORGANISMS OBSERVED Normal [facility] Comment on above: Performed By: #### G STAIN ####[facility] Mvqhwtpdir[address] [place], [place] [address]Dr. Anjali Reagan DIPHTHEROIDS Normal [facility] Comment on above: Performed By: #### G STAIN ####[facility] Hsusnezkcm[address] [place], [place] [address]Dr. Anjali Reagan EPITHELIALS Normal [facility] Comment on above: Performed By: #### G STAIN ####[facility] Ocwytaomub[address] [place], [place] [address]Dr. Anjali Reagan FUNGAL ELEMENTS Normal [facility] Comment on above: Performed By: #### G STAIN ####[facility] Mmsglmdxbu[address] [place], [place] [address]Dr. Anjali Reagan GRAM NEG BACILLI Normal [facility] Comment on above: Performed By: #### G STAIN ####[facility] Jvbrtrenzl3868 [place] [address]Dr. Anjali Reagan GRAM NEG DIPPLOCOCCI Normal [facility] Comment on above: Performed By: #### G STAIN ####[facility] Ucahogrhow4493 [place] [address]Dr. Anjali Reagan GRAM POS BACILLI Normal [facility] Comment on above: Performed By: #### G STAIN ####[facility] Fcpcexkyzx2589 [place] [phone]. Anjali Reagan GRAM POSITIVE COCCI Normal [facility] Comment on above: Performed By: #### G STAIN ####[facility] Eijghqclns3741 [place] [phone]. Anjali Reagan GRAM STAIN SOURCE RIGHT FOOT ABSCESS SWAB Normal [facility] Comment on above: Performed By: #### G STAIN ####[facility] Wbcbikimrg5789 [place] [phone]. Anjali Reagan GS_DIPTH Normal [facility] Comment on above: Performed By: #### G STAIN ####[facility] Gilcflfaeg0834 [place] [address]Dr. Anjali Reagan WBC RARE [facility] Comment on above: Performed By: #### G STAIN ####[facility] Mniedgquzq9600 [place] [address]Dr. Anjali Reagan HIV 1/2 RAPID (EXPOSURE ONLY )on 02-08-2021 HIV AB Negative [facility] Comment on above: Performed By: #### R PDHIV ####[facility] Rahzifcwif7121 [place] [address]Dr. Anjali Reagan HIV AG Negative [facility] Comment on above: Performed By: #### R PDHIV ####[facility] Inkowbollr0508 [place] [address]Dr. Anjali Reagan INTERNAL CONTROLS Within Normal Limits Normal Wi thin Normal Limits [facility] Comment on above: Performed By: #### R PDHIV ####[facility] Iykzqufzgh7513 [place] [address]Dr. Anjali Reagan RAPID HIV INFO SEE BELOW Normal [facility] Comment on above: Result Comment: This test is used for the initial screening of the exposure source. Confirmation of all results will be obtained through reference lab testing. Performed By: #### R PDHIV ####[facility] Ofvrjlhenn1663 [place] [address]Dr. Anjali Reagan POINT OF CARE GLUCOSEon 11-0 Glucose [Mass/Vol] 400 mg/dL Critically high 74-106 [facility] Comment on above: Performed By: #### P OCGLUC ####[facility] Qdoqhsxamq2435 [place] [phone]. Anjali Reagan Glucose [Mass/Vol] 373 mg/dL Critically high -106 [facility] Comment on above: Performed By: #### P OCGLUC ####[facility] Vcslkdkppf7085 [place] [phone]. Anjali Reagan Glucose [Mass/Vol] 159 mg/dL Critically high 74-106 [facility] Comment on above: Performed By: #### P OCGLUC ####[facility] Ucfwpuehur2732 [place] [phone]. Anjali Reagan Glucose [Mass/Vol] 160 mg/dL Critically high -106 [facility] Comment on above: Performed By: #### P OCGLUC ####[facility] Wpsqzdhwgt2442 [place] [address]Dr. Anjali Reagan [facility] SED RATE 51 mm/hr Critically high <=20 [facility] Comment on above: Performed By: #### S EDR ####[facility] Kqftrkcwxp5140 [place] [address]Dr. Anjali Reagan CBC W MANUAL DIFFon 02-06-20 21 ATYPICAL LYMPH # Normal [facility] Comment on above: Performed By: #### C BCMAN ####[facility] Oxxtmonxuq0987 [place] [address]Dr. Anjali Reagan ATYPICAL LYMPH % Normal [facility] Comment on above: Performed By: #### C BCMAN ####[facility] Tgvazowbni5891 [place] [address]Dr. Biancalan Reagan BAND # 0.2 103/ul Normal 0.0-0.3 [facility] Comment on above: Performed By: #### C BCMAN ####[facility] Ykiftaaytl2477 [place] [address]Dr. Anjali Reagan BAND % 3 % Normal 0-5 [facility] Comment on above: Performed By: #### C BCMAN ####[facility] Sopkiyuovn8641 [place] [phone]. Anjali Reagan BASOM # 0.07 103/ul Normal 0.00-0.10 [facility] Comment on above: Performed By: #### C BCMAN ####[facility] Dmvoawcvep6505 [place] [phone]. Anjali Reagan BASOM % 1.0 % Normal 0.2-2.0 [facility] Comment on above: Performed By: #### C BCMAN ####[facility] Zezxqwqtct3730 [place] [phone]. Anjali Reagan BLAST # Normal [facility] Comment on above: Performed By: #### C BCFIONA ####[facility] Dtbownxhtn5816 [place] [address]Dr. Anjali Reagan BLAST % Normal [facility] Comment on above: Performed By: #### C CORI ####[facility] Rfbtcngbaz[address] [place], [place] [address]Dr. Anjali Reagan CORRECTED WBC Normal 4.0-11.0 The [facility] Comment on above: Performed By: #### C CORI ####[facility] Ztwmggsyij3975 [place] [address]Dr. Anjali Reagan EOS # 0.57 103/ul Normal 0.00-0.70 [facility] Comment on above: Performed By: #### C CORI ####[facility] Llpzpwcmpg9919 [place] [address]Dr. Anjali Reagan EOS% 8.0 % Critically high 0.9-7.0 [facility] Comment on above: Performed By: #### C BCFIONA ####[facility] Kguwsujdvm3083 [place] [phone]. Anjali Reagan HCT 32.9 % Critically low 42.0-54.0 [facility] Comment on above: Performed By: #### C BCMAN ####[facility] Zoywncvfpb5206 [place] [phone]. Anjali Reagan HGB 10.2 g/dl Critically low 14.0-18.0 [facility] Comment on above: Performed By: #### C CORI ####[facility] Hztpnopsre9311 [place], [place] [address]Uw. Anjali Reagan LYMPHM # 0.78 103/ul Critically low 1.20-3.80 [facility] Comment on above: Performed By: #### C CORI ####[facility] Xeiaiiwqlq3513 [place] [phone]. Anjali Reagan LYMPHM% 11.0 % Critically low 20.5-60.0 [facility] Comment on above: Performed By: #### C CORI ####[facility] Pppaosnlst7771 [place] [phone]. Anjali Reagan MCH 24.9 pg Critically low 25.9-34.0 [facility] Comment on above: Performed By: #### Uzair PERSAUD ####[facility] [address] [place] [id number]. Anjali Reagan MCHC 31.0 g/dl Normal 29.9-35.2 [facility] Comment on above: Performed By: #### Uzair PERSAUD ####[facility] Xkffmrycqp7820 [place] [id number]. Anjali Reagan MCV 80.4 fL Normal 80.0-94.0 [facility] Comment on above: Performed By: #### Uzair PERSAUD ####[facility] Pedtkmsajo[address] [place], [place] [address]Dr. Anjali Reagan METAMYELOCYTE # Normal [facility] Comment on above: Performed By: #### Uzair PERSAUD ####[facility] Sgmfchudlu1214 [place] [phone]. Anjali Reagan METAMYELOCYTE % Normal [facility] Comment on above: Performed By: #### Uzair PERSAUD ####[facility] Crqicxxpjy[address] [place], [place] [address]Dr. Anjali Reagan MONOM# 0.57 103/ul Normal 0.30-0.80 [facility] Comment on above: Performed By: #### Uzair PERSAUD ####[facility] Crrdubqkif[address] [place], [place] [address]Dr. Anjali Reagan MONOM% 8.0 % Normal 1.7-12.0 [facility] Comment on above: Performed By: #### C CORI ####[facility] Zvghgpjhje1267 [place] [phone]. Anjali Tez MPV 9.2 fL Critically low 9.5-13.5 [facility] Comment on above: Performed By: #### C CORI ####[facility] Frnblyjbif2769 [place] [phone]. Anjali Reagan MYELOCYTE # Normal [facility] Comment on above: Performed By: #### C CORI ####[facility] Rttzjplown0727 [place] [phone]. Anjali Reagan MYELOCYTE % Normal [facility] Comment on above: Performed By: #### C CORI ####[facility] Vnsdmiwgsf8124 [place] [phone]. Anjali Reaagn NRBC Normal [facility] Comment on above: Performed By: #### C CORI ####[facility] Bdgghzwoiq6712 [place] [phone]. Biancaramona Reagan OVALOCYTES 1+ Normal [facility] Comment on above: Performed By: #### C CORI ####[facility] Gkttlsdegb2756 [place] [phone]. Anjali Tez PLT 209 103/ul Normal 150-450 [facility] Comment on above: Performed By: #### C CORI ####[facility] Jfjzwypqhi8320 [place] [phone]. Biancaramona Tez RBC 4.09 106/ul Critically low 4.70-6.10 [facility] Comment on above: Performed By: #### C CORI ####[facility] Wnilhtjpca7199 [place] [phone]. Anjali Reagan RDW 18.2 % Critically high 11.0-15.0 [facility] Comment on above: Performed By: #### C CORI ####[facility] Qqbgjrgkbe5958 [place] [phone]. Anjali Reagan SEG # 4.90 103/ul Normal 1.40-6.50 [facility] Comment on above: Performed By: #### C SAUMYAFIONA ####[facility] Isejjbpgyt3661 [place], [place] [address]Lr. Anjali Reagan SEG % 69.0 % Normal 43.0-75.0 [facility] Comment on above: Performed By: #### C SAUMYAFIONA ####[facility] Npsbqqwhel4399 [place], [place] [address]Yj. Anjali Reagan WBC 7.1 103/ul Normal 4.0-11.0 [facility] Comment on above: Performed By: #### C SAUMYAFIONA ####[facility] Qekqrshbmt8113 [place], [place] [address]Ot. An[address] Reagan CT ABD/PELVIS WO CONon 02-05 CT ABD/PELVIS WO CON Normal [facility] Covid-19 PCR ([facility]on SARS-CoV-2 (COVID-19) RNA MEREDITH+probe Ql (Unsp spec) Not detected Normal NOT DETECTED [facility] Comment on above: Result Comment: This test is not yet approved or cleared by the [place] FDA. When there are no FDA-approved or cleared tests available, and other criteria are met, FDA can make tests available under an emergency access mechanism called an Emergency Use Authorization (EUA). The EUA for this test is supported by the [place] of Health and Human Service's (HHS's) declaration [...] with SARS-CoV-2. Performed By: #### C VDTB ####[facility] Niyfminnmm5723 [place], [place] [address]Li. Anjali Reagan ER URINE PROFILEon 1 Bilirubin Ql (U) Negative Normal NEGATIVE [facility] Comment on above: Performed By: #### E RUR ####[facility] Odslciaudp[address] [place], [place] [address]Dr. Anjali Reagan Clarity (U) CLEAR Normal CLEAR [facility] Comment on above: Performed By: #### E RUR ####[facility] Fynedcqiak[address] [place], [place] [address]Dr. Anjali Reagan Color (U) LT. YELLOW Normal YELLOW [facility] Comment on above: Performed By: #### E RUR ####[facility] Iobxyrlwas[address] [place], [place] [address]Dr. Biancaramona Reagan ERUAHD A micrscopic examination will be performed if indicated. Normal [facility] Comment on above: Performed By: #### E RUR ####[facility] Fbsipivvyl[address] [place], [place] [address]Dr. Anjali Reagan Glucose Ql (U) Negative Normal NEGATIVE The [facility] Comment on above: Performed By: #### E RUR ####[facility] Bwgbwdwtwo[address] [place], [place] [address]Dr. Anjali Reagan Hemoglobin Ql (U) Negative Normal NEGATIVE [facility] Comment on above: Performed By: #### E RUR ####[facility] Qofpcvuyth[address] [place], [place] [address]Dr. Anjali Reagan Ketones Ql (U) Negative Normal NEGATIVE The [facility] Comment on above: Performed By: #### E RUR ####[facility] Xkscefetuh[address] [place], [place] [address]Dr. Anjali Reagan LEUKOCYTES Negative Normal NEGATIVE [facility] Comment on above: Performed By: #### E RUR ####[facility] Fmbcxgolvx[address] [place], [place] [address]Dr. Biancaramona Tez Nitrite Ql (U) Negative Normal NEGATIVE [facility] Comment on above: Performed By: #### E RUR ####[facility] Zmwnpwxoop[address] [place], [place] [address]Dr. Biancaramona Reagan pH (U) 6.0 [pH] Normal 5-9 [facility] Comment on above: Performed By: #### E RUR ####[facility] Pkzwitweuk7197 [place] [address]Dr. Anjali Reagan SPEC GRAVITY 1.015 Normal 1.005-<=1.0 25 [facility] Comment on above: Performed By: #### E RUR ####[facility] Lszpjqcwnh8406 [place] [address]Dr. Anjali Reagan UA PROTEIN TRACE Normal NEGATIVE/ TRACE [facility] Comment on above: Performed By: #### E RUR ####[facility] Wqylekhzlk4964 [place] [address]Dr. Anjali Reagan UR MICRO IND NOT INDICATED Normal [facility] Comment on above: Performed By: #### E RUR ####[facility] Uuuzcmuqds11[address] [place] [address]Dr. Anjali Reagan Urobilinogen Qn (U) 0.2 {Geremias'U}/dL Normal 0.2 - 1. 0 [facility] Comment on above: Performed By: #### E RUR ####[facility] Tnjhulxdpn[address] [place], [place] [address]DrVeronica Reagan PROF 14(COMP METB)on 021 Albumin [Mass/Vol] 2.8 g/dL Critically low 3.5-5.0 [facility] Comment on above: Performed By: #### C MP ####[facility] Hotarcwooo[address] [place], [place] [address]Dr. Anjali Reagan Albumin/Globulin [Mass ratio] 0.6 {ratio} Normal [facility] Comment on above: Performed By: #### C MP ####[facility] Ocixitgegr56[address] [place] [address]Dr. Anjali Reagan ALP [Catalytic activity/Vol] 125 U/L Normal 38-126 [facility] Comment on above: Performed By: #### C MP ####[facility] Qfjgyiiqhs0376 [place] [address]Dr. Anjali Reagan ALT [Catalytic activity/Vol] 22 U/L Normal 21-72 [facility] Comment on above: Performed By: #### C MP ####[facility] Qtienugbii7867 [place] [phone]. Anjali Reagan Anion gap [Moles/Vol] 13.1 mmol/L Normal Th e [facility] Comment on above: Performed By: #### C MP ####[facility] Dxvvebafgz2749 [place] [address]Dr. Anjali Tez AST [Catalytic activity/Vol] 26 U/L Normal 17-59 [facility] Comment on above: Performed By: #### C MP ####[facility] Mqaffsjlcj3644 [place] [address]Dr. Biancaramona Tez Bilirubin [Mass/Vol] 0.8 mg/dL Normal 0.2-1.3 [facility] Comment on above: Performed By: #### C MP ####[facility] Fqwduuqbxw4127 [place] [address]Dr. Anjali Reagan Calcium [Mass/Vol] 9.2 mg/dL Normal 8.4-10.2 [facility] Comment on above: Performed By: #### C MP ####[facility] Wezokzkumd7992 [place] [address]Dr. Anjali Reagan Chloride [Moles/Vol] 98 mmol/L Normal 98-107 [facility] Comment on above: Performed By: #### C MP ####[facility] Caksfljmhg6806 [place] [address]Dr. Anjali Reagan CO2 [Moles/Vol] 28.7 mmol/L Normal 22.0-30.0 [facility] Comment on above: Performed By: #### C MP ####[facility] Trkrngiodf1173 [place] [address]Dr. Anjali Reagan Creatinine [Mass/Vol] 1.62 mg/dL Critically high 0.66-1.25 [facility] Comment on above: Performed By: #### C MP ####[facility] Jewmsztwxm1590 [place] [address]Dr. Anjali Reagan EGFR-AF ENGLISH 52 mL/min/1.73m2 Critically low >=60 [facility] Comment on above: Performed By: #### C MP ####[facility] Tofwalpkzw3610 [place] [address]Dr. Anjali Reagan EGFR-NON AF ENGLISH 43 mL/min/1.73m2 Critically low >=60 [facility] Comment on above: Performed By: #### C MP ####[facility] Jtuaemyffn3456 [place] [address]Dr. Anjali Reagan Globulin (S) [Mass/Vol] 4.6 g/dL Normal [facility] Comment on above: Performed By: #### C MP ####[facility] Kqkuozwaoz8480 [place] [address]Dr. Anjali Reagan Glucose [Mass/Vol] 192 mg/dL Critically high 74-106 [facility] Comment on above: Performed By: #### C MP ####[facility] Tfhawxqsuc9576 [place] [address]Dr. Anjali Reagan Potassium [Moles/Vol] 4.8 mmol/L Normal 3.4-5.0 [facility] Comment on above: Performed By: #### C MP ####[facility] Awoydnluyu2784 [place] [address]Dr. Anjali Reagan Protein [Mass/Vol] 7.4 g/dL Normal 6.1-8.2 [facility] Comment on above: Performed By: #### C MP ####[facility] Qlsrcxxrwh4114 [place] [address]Dr. Anjali Reagan Sodium [Moles/Vol] 135 mmol/L Critically low 137-145 [facility] Comment on above: Performed By: #### C MP ####[facility] Ntibbltrma4123 [place] [address]Dr. Anjali Reagan Urea nitrogen [Mass/Vol] 40.0 mg/dL Critically high 9.0-20 .0 [facility] Comment on above: Performed By: #### C MP ####[facility] Fkwinawmwt4102 [place] [phone]. Anjali Reagan Urea nitrogen/Creatinine [Mass ratio] 24.7 mg/mg Normal [facility] Comment on above: Performed By: #### C MP ####[facility] Kigsmpanym0310 [place] [address]Dr. Anjali Reagan PROF CHEM 8 (BAS METB)on Anion gap [Moles/Vol] 13.4 mmol/L Normal [facility] Comment on above: Performed By: #### B MP ####[facility] Cmhhuqvlnq[address] [place], [place] [address]Dr. Anjali Reagan Calcium [Mass/Vol] 9.3 mg/dL Normal 8.4-10.2 [facility] Comment on above: Performed By: #### B MP ####[facility] Zcrqcpymcx[address] [place], [place] [address]Dr. Anjali Reagan Chloride [Moles/Vol] 98 mmol/L Normal 98-107 [facility] Comment on above: Performed By: #### B MP ####[facility] Cjdebipsul[address] [place], [place] [address]Dr. Anjali Reagan CO2 [Moles/Vol] 28.8 mmol/L Normal 22.0-30.0 [facility] Comment on above: Performed By: #### B MP ####[facility] Stpsghdygl6[address] [place], [place] [address]Dr. Anjali Reagan Creatinine [Mass/Vol] 1.72 mg/dL Critically high 0.66-1.25 [facility] Comment on above: Performed By: #### B MP ####[facility] Rmkbpdskrp[address] [place], [place] [address]Dr. Anjali Reagan EGFR-AF ENGLISH 49 mL/min/1.73m2 Critically low >=60 [facility] Comment on above: Performed By: #### B MP ####[facility] Pljbgnipld[address] [place], [place] [address]Dr. Anjali Reagan EGFR-NON AF ENGLISH 40 mL/min/1.73m2 Critically low >=60 [facility] Comment on above: Performed By: #### B MP ####[facility] Yeafmapjmu[address] [place], [place] [address]Dr. Anjali Reagan Glucose [Mass/Vol] 204 mg/dL Critically high 74-106 [facility] Comment on above: Performed By: #### B MP ####[facility] Ohdrkreotk2136 [place] [address]Dr. Anjali Reagan Potassium [Moles/Vol] 4.2 mmol/L Normal 3.4-5.0 [facility] Comment on above: Performed By: #### B MP ####[facility] Wzglvwbdho6680 [place] [address]Dr. Anjali Tez Sodium [Moles/Vol] 136 mmol/L Critically low 137-145 Th [facility] Comment on above: Performed By: #### B MP ####[facility] Baanrsmfkq1480 [place] [address]Dr. Anjali Reagan Urea nitrogen [Mass/Vol] 35.0 mg/dL Critically high 9.0-20 .0 [facility] Comment on above: Performed By: #### B MP ####[facility] Lhwhtcambv4133 [place] [address]Dr. Anjali Tez Urea nitrogen/Creatinine [Mass ratio] 20.3 mg/mg Normal [facility] Comment on above: Performed By: #### B MP ####[facility] Ctxjerlbso[address] [place], [place] [address]Dr. Anjali Reagan CT ANKLE RT WO CONon 021 CT ANKLE RT WO CON Normal [facility] XR ANKLE RT MIN 3 VIEWSon XR ANKLE RT MIN 3 VIEWS Normal [facility] XR ANKLE RT MIN 3 VIEWSon XR ANKLE RT MIN 3 VIEWS Normal [facility] Otolaryngology Office/Clinic Noteon 01-19-2021 Otolaryngology Office/Clinic Note [...] Dr. Freed. Previous pathology by physician in [place] about 1 year ago. PMHx of multiple [...] 2. Basal (more content not included)... Normal [facility] BASIC METABOLIC PANEL W/O CA on 01-15-2021 Chloride [Moles/Vol] 98 mmol/L Normal 98-110 [facility] Comment on above: Order Comment: FASTI NG:YESFASTING: YES Performed By: #### 1 0165, 496, 905 #### [facility] [address], [address] [place] [address] Line Analyst: Juan Meraz MD CO2 [Moles/Vol] 26 mmol/L Normal 20-32 [facility] Comment on above: Order Comment: FASTI NG:YESFASTING: YES Performed By: #### 1 0165, 496, 905 #### [facility] [address], [address] [place] [address] Line Analyst: Juan Meraz MD Creatinine [Mass/Vol] 1.71 mg/dL High 0.70-1.[address] [facility] Comment on above: Order Comment: FASTI NG:YESFASTING: YES Result Comment: For patients >49 years of age, the reference limit for Creatinine is approximately 13% higher for people identified as -Romanian. Performed By: #### 1 0165, 496, 905 #### [facility] [address], [address] [place] [address] Line Analyst: Juan Meraz MD eGFR NON-AFR. ENGLISH 42 mL/min/1.73m2 Low > OR = 60 [facility] Comment on above: Order Comment: FASTI NG:YESFASTING: YES Performed By: #### 1 0165, 496, 905 #### [facility] [address], [address] [place] [address] Line Analyst: Juan Meraz MD GFR/1.73 sq M.predicted among blacks MDRD (S/P/Bld) [Vol rate/Area] 48 mL/min/{1.73_m2} Low > OR = 60 [facility] Comment on above: Order Comment: FASTI NG:YESFASTING: YES Performed By: #### 1 0165, 496, 905 #### [facility] [place] [address] [place] [address] Line Analyst: Juan Meraz MD Glucose [Mass/Vol] 186 mg/dL High 65-99 [facility] Comment on above: Order Comment: FASTI NG:YESFASTING: YES Result Comment: Fasting reference interval For someone without known diabetes, a glucose value >125 mg/dL indicates that they may have diabetes and this should be confirmed with a follow-up test. Performed By: #### 1 0165, 496, 905 #### [facility] [place] [address] Line Analyst: Juan Meraz MD Potassium [Moles/Vol] 4.3 mmol/L Normal 3.5-5.3 [facility] Comment on above: Order Comment: FASTI NG:YESFASTING: YES Performed By: #### 1 0165, 496, 905 #### [facility] [place] [address] Line Analyst: Juan Meraz MD Sodium [Moles/Vol] 137 mmol/L Normal 135-146 [facility] Comment on above: Order Comment: FASTI NG:YESFASTING: YES Performed By: #### 1 0165, 496, 905 #### [facility] [place] [address] Line Analyst: Juan Meraz MD Urea nitrogen [Mass/Vol] 34 mg/dL High 7-25 [facility] Comment on above: Order Comment: FASTI NG:YESFASTING: YES Performed By: #### 1 0165, 496, 905 #### [facility] [place] [address] Line Analyst: Juan Meraz MD Urea nitrogen/Creatinine [Mass ratio] 20 mg/mg Normal 6-22 [facility] Comment on above: Order Comment: FASTI NG:YESFASTING: YES Performed By: #### 1 0165, 496, 905 #### [facility] [place] [address] Line Analyst: Juan Meraz MD CBC (INCLUDES DIFF/PLT)on Basophils (Bld) [#/Vol] 0.026 10*3/uL Normal 0-200 [facility] Comment on above: Performed By: #### 1 0165, 496, 905 #### [facility] [place] [address] Line Analyst: Juan Meraz MD Basophils/100 WBC (Bld) 0.3 % Normal [facility] Comment on above: Performed By: #### 1 0165, 496, 905 #### [facility] [place] [address] Line Analyst: Juan Meraz MD Eosinophils (Bld) [#/Vol] 0.202 10*3/uL Normal 15-500 [facility] Comment on above: Performed By: #### 1 0165, 496, 905 #### [facility] [place] [address] Line Analyst: Juan Meraz MD Eosinophils/100 WBC (Bld) 2.3 % Normal [facility] Comment on above: Performed By: #### 1 0165, 496, 905 #### [facility] [place] [address] Line Analyst: Juan Meraz MD Erythrocyte distribution width (RBC) [Ratio] 15.7 % High 11.0-15.0 [facility] Comment on above: Performed By: #### 1 0165, 496, 905 #### [facility] [place] [address] Line Analyst: Juan Meraz MD Hematocrit (Bld) [Volume fraction] 34.9 % Low 38.5-50.0 [facility] Comment on above: Performed By: #### 1 0165, 496, 905 #### [facility] [place] [address] Line Analyst: Juan Meraz MD Hemoglobin (Bld) [Mass/Vol] 10.9 g/dL Low 13.2-17.1 [facility] Comment on above: Performed By: #### 1 164, 496, 905 #### [facility] [place] [address] Line Analyst: Juan Meraz MD Lymphocytes (Bld) [#/Vol] 0.748 10*3/uL Low 850-3900 [facility] Comment on above: Performed By: #### 1 164, 496, 905 #### [facility] [place] [address] Line Analyst: Juan Meraz MD Lymphocytes/100 WBC (Bld) 8.5 % Normal [facility] Comment on above: Performed By: #### 1 164, 496, 905 #### [facility] [place] [address] Line Analyst: Juan Meraz MD MCH (RBC) [Entitic mass] 25.1 pg Low 27.0-33.0 [facility] Comment on above: Performed By: #### 1 164, 498, 905 #### [facility] [place] [address] Line Analyst: Juan Meraz MD MCHC (RBC) [Mass/Vol] 31.2 g/dL Low 32.0-36.[address] [facility] Comment on above: Performed By: #### 1 164, 499, 905 #### [facility] [place] [address] Line Analyst: Juan Meraz MD MCV (RBC) [Entitic vol] 80.4 fL Normal 80.0-100.0 [facility] Comment on above: Performed By: #### 1 164, 493, 905 #### [facility] [place] [address] Line Analyst: Juan Meraz MD Monocytes (Bld) [#/Vol] 0.889 10*3/uL Normal 200-950 [facility] Comment on above: Performed By: #### 1 0165, 496, 905 #### [facility] [place] [address] Line Analyst: Juan Meraz MD Monocytes/100 WBC (Bld) 10.1 % Normal [facility] Comment on above: Performed By: #### 1 0165, 496, 905 #### [facility] [place] [address] Line Analyst: Juan Meraz MD Neutrophils (Bld) [#/Vol] 6.934 10*3/uL Normal 4544-6109 [facility] Comment on above: Performed By: #### 1 0165, 496, 905 #### [facility] [place] [address] Line Analyst: Juan Meraz MD Neutrophils/100 WBC (Bld) 78.8 % Normal [facility] Comment on above: Performed By: #### 1 0165, 496, 905 #### [facility] [place] [address] Line Analyst: Juan Meraz MD Platelet mean volume (Bld) [Entitic vol] 9.9 fL Normal 7.5-12.5 [facility] Comment on above: Performed By: #### 1 0165, 496, 905 #### [facility] [place] [address] Line Analyst: Juan Meraz MD Platelets (Bld) [#/Vol] 353 10*3/uL Normal 140-400 [facility] Comment on above: Performed By: #### 1 0165, 496, 905 #### [facility] [place] [address] Line Analyst: Juan Meraz MD RBC (Bld) [#/Vol] 4.34 10*6/uL Normal 4.20-5.80 [facility] Comment on above: Performed By: #### 1 0165, 496, 905 #### [facility] [address], [address] [place] [address] Line Analyst: Juan Meraz MD WBC (Bld) [#/Vol] 8.8 10*3/uL Normal 3.8-10.8 [facility] Comment on above: Performed By: #### 1 0165, 496, 905 #### [facility] [address], [address] [place] [address] Line Analyst: Juan Meraz MD Otolaryngology Office/Clinic Noteon [...] oral caps (more content not included)... Normal [facility] Otolaryngology Office/Clinic Noteon 01-12-2021 Otolaryngology Office/Clinic Note [...] Dr. Freed. Previous pathology by physician in [place] about 1 year ago. PMHx of multiple [...] separately bill (more content not included)... Normal [facility] Operative Reporton Operative Report Date: January 11, [...] Chirag Gutierrez DO 01/11/21 20:09 EDT Normal [facility] Operative Report Date: January 11, 2021 Preoperative [...] Chirag Gutierrez DO 01/11/21 09:28 EDT Normal [facility] POC Glucose Randomon 021 Glucose [Mass/Vol] 211 mg/dL High 70-99 [facility] Comment on above: Performed By: #### C D:[id number] ####[address] [address] CoV2 Agon 01-10-2021 Employed in healthcare? Unknown Normal [facility] Comment on above: Performed By: #### C [id number] ####[address] [address] Group care resident? Unknown Normal [facility] Comment on above: Performed By: #### C D:[id number] ####[place] [id number] In ICU? No Normal [facility] Comment on above: Performed By: #### C D:[id number] ####[address] [address] status? Not Applicable Normal [facility] Comment on above: Performed By: #### C D:[id number] ####[address] [address] SARS-CoV-2 (COVID-19) RNA MEREDITH+probe Ql (Unsp spec) Normal Negative [facility] Comment on above: Result Comment: * Ne [...] Negative ADDITIONAL INFORMATION: Testing performed on the [employer] using the SARS-CoV-2 Antigen test. Results are for the identification of SARS-CoV-2 nucleocapsid antigen. The [employer] SARS-CoV-2 Antigen test can detect both viable [...] Administration?s Emergency Use Authorization. HCP Fact Sheet: https://www.fda.gov/media/258204/download Patient Fact Sheet: https://www.fda.gov/media/694572/download Performed By: #### C D:[id number] ####[place] [address] SARS-CoV-2 (COVID-19) RNA MEREDITH+probe Ql (Unsp spec) Unknown Normal [facility] Comment on above: Performed By: #### C D:[id number] ####[place] [address] Symptomatic as defined by CDC? Unknown Normal [facility] Comment on above: Performed By: #### C D:[id number] ####[place] [id number] BASIC METABOLIC PANELon 10-0 Calcium [Mass/Vol] 9.6 mg/dL Normal 8.6-10.3 [facility] Comment on above: Performed By: #### 1 0165, 002, 735 #### [facility] [address] Line Analyst: Juan Meraz MD Chloride [Moles/Vol] 100 mmol/L Normal 98-110 [facility] Comment on above: Performed By: #### 1 0165, 390, 222 #### [facility] [address] Line Analyst: Juan Meraz MD CO2 [Moles/Vol] 30 mmol/L Normal 20-32 [facility] Comment on above: Performed By: #### 1 0165, 494, 905 #### [facility] [place] [address] Line Analyst: Juan Meraz MD Creatinine [Mass/Vol] 1.67 mg/dL High 0.70-1.[address] [facility] Comment on above: Result Comment: For patients >49 years of age, the reference limit for Creatinine is approximately 13% higher for people identified as -Romanian. Performed By: #### 1 0165, 491, 905 #### [facility] [place] [address] Line Analyst: Juan Meraz MD eGFR NON-AFR. ENGLISH 43 mL/min/1.73m2 Low > OR = 60 [facility] Comment on above: Performed By: #### 1 016, 499, 905 #### [facility] [place] [address] Line Analyst: Juan Meraz MD GFR/1.73 sq M.predicted among blacks MDRD (S/P/Bld) [Vol rate/Area] 50 mL/min/{1.73_m2} Low > OR = 60 [facility] Comment on above: Performed By: #### 1 016, 494, 905 #### [facility] [place] [address] Line Analyst: Juan Meraz MD Glucose [Mass/Vol] 124 mg/dL High 65-99 [facility] Comment on above: Result Comment: Fasting reference interval For someone without known diabetes, a glucose value between 100 and 125 mg/dL is consistent with prediabetes and should be confirmed with a follow-up test. Performed By: #### 1 0165, 491, 905 #### [facility] [place] [address] Line Analyst: Juan Meraz MD Potassium [Moles/Vol] 4.7 mmol/L Normal 3.5-5.[address] [facility] Comment on above: Performed By: #### 1 0165, 496, 905 #### [facility] [address], [address] [place] [address] Line Analyst: Juan Meraz MD Sodium [Moles/Vol] 138 mmol/L Normal 135-146 [facility] Comment on above: Performed By: #### 1 0165, 496, 905 #### [facility] [address], [address] [place] [address] Line Analyst: Juan Meraz MD Urea nitrogen [Mass/Vol] 40 mg/dL High 7-25 [facility] Comment on above: Performed By: #### 1 0165, 496, 905 #### [facility] [address], [address] [place] [address] Line Analyst: Juan Meraz MD Urea nitrogen/Creatinine [Mass ratio] 24 mg/mg High 6-22 [facility] Comment on above: Performed By: #### 1 0165, 496, 905 #### [facility] [address], [address] [place] [address] Line Analyst: Juan Meraz MD HEMOGLOBIN A1con 12-31-2020 [...] 1 0165, 496, 905 #### [facility] [address], [address] [place] [address] Line Analyst: Juan Meraz MD Provider Letteron 12-31-2020 Provider Letter [facility] Ear, Nose & Throat; Facial Plastic Surgery [address] [place], [place] [id number] P: [phone] F: [phone] Chirag Gutierrez DO, [facility] Re: Anai [id number] Date of Visit: 01/05/2021 ATTENTION MEDICAL RECORDS: We are requesting pathology report for biopsy of left ear done within the last 2 years for patient Anai Goodman 59. Thank you, ChiragEwa [facility] Provider Letter [facility] Ear, Nose & Throat; Facial Plastic Surgery [address] [place], [place] [id number] P: [phone] F: [phone] Chirag Gutierrez DO, [facility] Re: Anai [id number] Date of Visit: 01/05/2021 ATTENTION MEDICAL RECORDS: We are requesting pathology report for biopsy of left ear done within the last 2 years for patient Anai Goodman. Thank you, [facility] Provider Letter [facility] Ear, Nose & Throat; Facial Plastic Surgery [address] [place], [place] [id number] P: [phone] F: [phone] Chirag Gutierrez DO[address] [address] Re: Anai [id number] Date of Visit: 01/05/2021 Patient is a mutual patient, referred to us by your office for lesion of his left ear. We are in need of his previous pathology report for this, he returns to our office for biopsy of this lesion on 01/05/21. We would appreciate if you could please fax over this information prior to 01/05/21. Thank you, [facility] URIC ACIDon 12-31-2020 Urate [Mass/Vol] 10.3 mg/dL High 4.0-8.0 [facility] Comment on above: Order Comment: FASTI NG:YES FASTING: YES Result Comment: Ther apeutic target for gout patients: <6.0 mg/dL Performed By: #### 1 0165, 496, 905 #### [facility] [address], [address] [place] [address] Line Analyst: Juan Meraz MD Provider Letteron 12-17-2020 Provider Letter Deon Brito [address] [place] [address] Re: Anai Rdzrosalinewillievarun Date of Visit: 12/15/2020 Dear Deon Braxton, I am referring Anai to your office for care. Attached your will find my notes and impressions from our visit. Deon Braxton DO Re:Demetrivarun Anai 1955 Date of Visit: 12/15/2020 Dear Deon Braxton DO: I had the pleasure of evaluating patient, Anai Goodman, in the [facility] clinic on 12/15/2020. Attached you will [...] Gutierrez, DO [facility] of [address] [address] Let me know if you have any questions or concerns. Sincerely, Tyesha Dunne Providers: The following document(s) were included in the letter: December 15, 2020 13:30:00 EDT - (12/15/2020) Office Visit Note Normal [facility] Otolaryngology Office/Clinic Noteon 12-15-2020 Otolaryngology Office/Clinic Note [...] Dr. Freed. Previous pathology by physician in [place] about 1 year ago. PMHx of multiple [...] mL, 1 Refill(s), 12/18/20 14:00:00 EDT, [id number] Medical Decision Making Chronic conditions NOT treated [...] 5000 intl (more content not included)... Normal [facility] Otolaryngology Office/Clinic Note Chief Complaint BCC of [...] Dr. Freed. Previous pathology by physician in [place] about 1 year ago. PMHx of multiple [...] meal to (more content not included)... Normal [facility] XR ANKLE RT MIN 3 VIEWSon XR ANKLE RT MIN 3 VIEWS Normal [facility] XR FOOT RT MIN 3 VIEWSon XR FOOT RT MIN 3 VIEWS Normal [facility] XR FOOT RT MIN 3 VIEWSon XR FOOT RT MIN 3 VIEWS Normal [facility] XR FOOT RT MIN 3 VIEWSon XR FOOT RT MIN 3 VIEWS Normal [facility] Consultation Noteon 05-11-19 Consultation Note [id number]:127 Normal [facility] Vital Signs Date Time Vital Sign Value Performing Clinician Facility 04-12-2023 11:11-0500 Body height 182.9 cm Terry ESCOBEDO Work Phone: [facility] 04-12-2023 11:11-0500 Body mass index (BMI) [Ratio] 28.89 kg/m2 Terry ESCOBEDO Work Phone: [facility] 04-12-2023 11:11-0500 Body weight 96.62 kg Terry [facility]ED[facility] 04-12-2023 11:11-0500 Diastolic blood pressure 74 mm[Hg] Terry ESCOBEDO Work Phone: [facility] 04-12-2023 11:11-0500 Heart rate 74 /min Terry ESCOBEDO Work Phone: [facility] 04-12-2023 11:11-0500 SaO2% (BldA) [Mass fraction] 97 % Terry [facility]OBEDO [facility] 04-12-2023 11:11-0500 Systolic blood pressure 126 mm[Hg] Terry ESCOBEDO Work Phone: [facility] 12-05-2022 13:00-0400 Body height 177.8 cm Ghanshyam Kaye Other [employer] Other 12-05-2022 13:00-0400 Diastolic blood pressure 70 mm[Hg] Ghanshyam Kaye Other [employer] Other 12-05-2022 13:00-0400 SaO2% (BldA) [Mass fraction] 97 % Ghanshyam Kaye Other [employer] Other 12-05-2022 13:00-0400 Systolic blood pressure 110 mm[Hg] Ghanshyam Kaye Other [employer] Other 10-05-2022 10:00-0400 Body height 177.8 cm Dung Serna Other [employer] Other 10-05-2022 10:00-0400 Body mass index (BMI) [Ratio] 31.85 kg/m2 Dung Serna Other [employer] Other 10-05-2022 10:00-0400 Body weight 100.7 kg Dung Serna Other [employer] Other 10-05-2022 10:00-0400 Diastolic blood pressure 70 mm[Hg] Dung Serna Other [employer] Other 10-05-2022 10:00-0400 Systolic blood pressure 118 mm[Hg] Dung Serna Other [employer] Other 06-02-2022 11:00-0500 Body height 177.8 cm Reddy Brandt Other [employer] Other 06-02-2022 11:00-0500 Body mass index (BMI) [Ratio] 30.13 kg/m2 Reddy Brandt Other [employer] Other 06-02-2022 11:00-0500 Body weight 95.26 kg Reddy Brandt Other [employer] Other 03-15-2022 13:45-0500 Body height 177.8 cm Reddy Brandt Other [employer] Other 03-15-2022 13:45-0500 Body mass index (BMI) [Ratio] 30.85 kg/m2 Reddy Brandt Other [employer] Other 03-15-2022 13:45-0500 Body weight 97.52 kg Reddy Brandt Other [employer] Other 02-07-2022 14:00-0500 Body height 177.8 cm Ghanshyam Kaye Other [employer] Other 02-07-2022 14:00-0500 Body mass index (BMI) [Ratio] 30.85 kg/m2 Ghanshyam Kaye Other [employer] Other 02-07-2022 14:00-0500 Body weight 97.52 kg Ghanshyam Kaye Other [employer] Other 02-07-2022 14:00-0500 Diastolic blood pressure 72 mm[Hg] Ghanshyam Kaye Other [employer] Other 02-07-2022 14:00-0500 SaO2% (BldA) [Mass fraction] 98 % Ghanshyam Kaye Other [employer] Other 02-07-2022 14:00-0500 Systolic blood pressure 118 mm[Hg] Ghanshyam Kaye Other [employer] Other 11-29-2021 14:35-0400 Diastolic blood pressure 78 mm[Hg] DO Deon Cordovahas Work Phone: [facility] 11-29-2021 14:35-0400 Heart rate 75 /min DO Deon Tashahas Work Phone: [facility] 11-29-2021 14:35-0400 Respiratory rate 16 /min DO Deon Cordovahas Work Phone: [facility] 11-29-2021 14:35-0400 SaO2% (BldA) [Mass fraction] 95 % DO Deon Cordovahas Work Phone: [facility] 11-29-2021 14:35-0400 Systolic blood pressure 123 mm[Hg] DO Deon Cordovahas Work Phone: [facility] 11-29-2021 13:39-0400 Inhaled oxygen flow rate 8 L/min DO Deon Cordovahas Work Phone: [facility] 11-29-2021 13:24-0400 Body temperature 98.5 [degF] DO Deon Cordovahas Work Phone: [facility] 11-29-2021 12:10-0400 Body height 182.88 cm DO Deon Cordovahas Work Phone: [facility] 11-29-2021 12:10-0400 Body mass index (BMI) [Ratio] 30.5 kg/m2 DO Deon Cordovahas Work Phone: [facility] 11-29-2021 12:10-0400 Body weight 102.05 kg DO Deon Cordovahas Work Phone: [facility] 11-03-2021 10:41-0400 Diastolic blood pressure 66 mm[Hg] DO Deon Tashahas Work Phone: [facility] 11-03-2021 10:41-0400 Heart rate 78 /min DO Deon Cordovahas Work Phone: [facility] 11-03-2021 10:41-0400 Respiratory rate 16 /min DO Deon Cordovahas Work Phone: [facility] 11-03-2021 10:41-0400 SaO2% (BldA) [Mass fraction] 97 % DO Deon Cordovahas Work Phone: [facility] 11-03-2021 10:41-0400 Systolic blood pressure 121 mm[Hg] DO Deon Cordovahas Work Phone: [facility] 11-03-2021 09:41-0400 Body temperature 98 [degF] DO Deon Ramoss Work Phone: [facility] 11-03-2021 09:11-0400 Inhaled oxygen flow rate 8 L/min DO Deon Cordovahas Work Phone: [facility] 11-03-2021 07:37-0400 Body height 182.88 cm DO Deon Ramoss Work Phone: [facility] 11-03-2021 07:37-0400 Body mass index (BMI) [Ratio] 30.5 kg/m2 DO Deon Ramoss Work Phone: [facility] 11-03-2021 07:37-0400 Body weight 102.05 kg DO Deon Ramoss Work Phone: [facility] 11-01-2021 18:03-0400 Diastolic blood pressure 69 mm[Hg] DO Deon Ramoss Work Phone: [facility] 11-01-2021 18:03-0400 Heart rate 71 /min DO Deon Cordovahas Work Phone: [facility] 11-01-2021 18:03-0400 Respiratory rate 16 /min DO Deon Cordovahas Work Phone: [facility] 11-01-2021 18:03-0400 SaO2% (BldA) [Mass fraction] 99 % DO Deon Cordovahas Work Phone: [facility] 11-01-2021 18:03-0400 Systolic blood pressure 124 mm[Hg] DO Deon Yuhas Work Phone: [facility] 11-01-2021 16:21-0400 Body height 182.88 cm DO Deon Yuhas Work Phone: [facility] 11-01-2021 16:21-0400 Body temperature 98 [degF] DO Deon Yuhas Work Phone: [facility] 11-01-2021 16:21-0400 Body weight 102.05 kg DO Deon Yuhas Work Phone: [facility] 10-31-2021 10:30-0400 Body height 177.8 cm Reddy Karly Other [facility] Other 10-27-2021 05:00-0400 Body temperature 98.6 [degF] DO Deon Cordovahas Work Phone: [facility] 10-27-2021 05:00-0400 Diastolic blood pressure 72 mm[Hg] DO Deon Tashahas Work Phone: [facility] 10-27-2021 05:00-0400 Heart rate 70 /min DO Deon Tashahas Work Phone: [facility] 10-27-2021 05:00-0400 Respiratory rate 16 /min DO Deon Cordovahas Work Phone: [facility] 10-27-2021 05:00-0400 SaO2% (BldA) [Mass fraction] 98 % DO Deon Yuhas Work Phone: [facility] 10-27-2021 05:00-0400 Systolic blood pressure 132 mm[Hg] DO Deon Yuhas Work Phone: [facility] 10-24-2021 12:00-0400 Body height 182.88 cm DO Deon Yuhas Work Phone: [facility] 10-23-2021 05:26-0400 Body weight 70.9 kg DO Deon Tashahas Work Phone: [facility] 10-22-2021 04:14-0400 Inhaled oxygen concentration 21 % DO Deon Yuhas Work Phone: [facility] 10-21-2021 12:00-0400 Body temperature 98.1 [degF] DO Deon Tashahas Work Phone: [facility] 10-21-2021 12:00-0400 Diastolic blood pressure 73 mm[Hg] DO Deon Tashahas Work Phone: [facility] 10-21-2021 12:00-0400 Heart rate 76 /min DO Deon Tashahas Work Phone: [facility] 10-21-2021 12:00-0400 Respiratory rate 18 /min DO Deon Cordovahas Work Phone: [facility] 10-21-2021 12:00-0400 SaO2% (BldA) [Mass fraction] 95 % DO Deon Cordovahas Work Phone: [facility] 10-21-2021 12:00-0400 Systolic blood pressure 128 mm[Hg] DO Deon Tashahas Work Phone: [facility] 10-21-2021 06:00-0400 Body weight 99.9 kg DO Deon Cordovahas Work Phone: [facility] 10-21-2021 02:05-0400 Inhaled oxygen concentration 21 % DO Deon Tashahas Work Phone: [facility] 10-19-2021 11:00-0400 Body height 182.88 cm DO Deon Yuhas Work Phone: [facility] 10-18-2021 15:37-0400 Inhaled oxygen flow rate 6 L/min DO Deon Tashahas Work Phone: [facility] 10-18-2021 13:19-0400 Body mass index (BMI) [Ratio] 29.8 kg/m2 DO Deon Braxton Work Phone: [facility] 10-12-2021 10:00-0400 Body height 177.8 cm Reddy Karly Other [employer] Other 10-12-2021 10:00-0400 Body mass index (BMI) [Ratio] 32.28 kg/m2 Reddy Karly Other [employer] Other 10-12-2021 10:00-0400 Body weight 102.06 kg Reddy Karly Other [employer] Other 10-06-2021 14:15-0400 Body height 177.8 cm Pako Aguilar Other [employer] Other 10-06-2021 14:15-0400 Body mass index (BMI) [Ratio] 32.28 kg/m2 Pako Aguilar Other [employer] Other 10-06-2021 14:15-0400 Body temperature 97.3 [degF] Pako Aguilar Other [employer] Other 10-06-2021 14:15-0400 Body weight 102.06 kg Pako Aguilar Other [employer] Other 10-06-2021 14:15-0400 Diastolic blood pressure 73 mm[Hg] Pako Aguilar Other [employer] Other 10-06-2021 14:15-0400 Systolic blood pressure 127 mm[Hg] Pako Aguilar Other [employer] Other 09-08-2021 15:30-0400 Body height 177.8 cm Pako Aguilar Other [employer] Other 09-08-2021 15:30-0400 Body temperature 98.1 [degF] Pako Aguilar Other [employer] Other 09-08-2021 15:30-0400 Diastolic blood pressure 73 mm[Hg] Pako Aguilar Other [employer] Other 09-08-2021 15:30-0400 Systolic blood pressure 149 mm[Hg] Pako Aguilar Other [employer] Other Encounters Encounter Date Encounter Type Care Provider Facility Start: 08-02-2023 End: 08-03-2023 ambulatory [facility] Start: 08-02-2023 End: 08-02-2023 ambulatory [facility] Start: 08-01-2023 End: 08-01-2023 ambulatory ZOEY A ADRYAN Not Available Start: 07-11-2023 End: 07-11-2023 ambulatory DEBI H TIMMIS Not Available Start: 07-03-2023 End: 07-03-2023 ambulatory DEBI H TIMMIS Not Available Start: 06-27-2023 End: 06-27-2023 ambulatory ZOEY A ADRYAN Not Available Start: 06-01-2023 Refill Deon Walker O Work Phone: [facility] Comment on above: Sarcoidosis with gra nulomatous hepatitis Start: 06-01-2023 Refill Deon Braxton D O Work Phone: [facility] Comment on above: 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, with long-term current use of insulin ([facility]) Start: 05-12-2023 Refill Deon Braxton D O Work Phone: [facility] Comment on above: Pure hypercholestero lemia Med Refill Start: 04-19-2023 End: 04-19-2023 ambulatory Salina Lee Facility:[facility] Start: 04-19-2023 End: 04-19-2023 ambulatory DO Deon Braxton Work Phone: [facility] Work Phone: Start: 04-19-2023 End: 04-19-2023 Departed Referred DO eDon Braxton Work Phone: [facility] Start: 04-13-2023 Refill Kaylene Peter CMA [facility] Comment on above: 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, with long-term current use of insulin ([facility]) Start: 04-12-2023 End: 04-12-2023 ambulatory TERRY LOCK [facility] Start: 04-12-2023 Encounter for prepro cedural cardiovascular examination TERRY LOCK [facility] Start: 04-12-2023 End: 04-12-2023 Office outpatient visit 25 minutes Terry Lock CHILD DAY CARE TEACHER-FOOD SERVICE HELPER Work Phone: [facility] Comment on above: Preop cardiovascular exam (Primary Dx); Coronary artery disease involving apache coronary artery of apache heart without angina pectoris; Ischemic cardiomyopathy; Chronic systolic congestive heart failure ([facility]); Apical mural thrombus; Essential (primary) hypertension; Cardiac defibrillator in place- [employer]; Mixed hyperlipidemia Start: 04-12-2023 End: 04-12-2023 Patient encounter status Terry Lock CHILD DAY CARE TEACHER-FOOD SERVICE HELPER Work Phone: [facility] [employer] Work Phone: Start: 04-05-2023 End: 04-06-2023 ambulatory YOVANNY CALHOUN [facility] Start: 04-03-2023 End: 04-03-2023 ambulatory Dung Serna Other [facility] Other Start: 04-03-2023 Telephone encounter Dung Serna [facility] Start: 03-22-2023 End: 03-23-2023 ambulatory [facility] Start: 03-22-2023 End: 03-22-2023 ambulatory YOVANNY CALHOUN Not Available Start: 03-22-2023 End: 03-22-2023 ambulatory YOVANNY CALHOUN Not Available Start: 03-22-2023 End: 03-22-2023 ambulatory [facility] Start: 03-07-2023 End: 03-07-2023 ambulatory ZOEY CORNELIUS Not Available Start: 01-11-2023 End: 01-11-2023 ambulatory Ghanshyam Kaye Other [employer] Other Start: 01-11-2023 Telephone encounter Ghanshyam Vargas [facility] Start: 12-05-2022 End: 12-05-2022 ambulatory Ghanshyam Shermaney Other [employer] Other Start: 12-05-2022 Office outpatient vi sit 15 minutes Ghanshyam Kaye [facility] Start: 10-05-2022 Office outpatient ne w 30 minutes Dung Serna [facility] Start: 10-05-2022 End: 10-05-2022 ambulatory [facility] [employer] Other Start: 08-02-2022 End: 08-02-2022 ambulatory Reddy Brandt Other [employer] Other Start: 08-02-2022 Office outpatient vi sit 15 minutes Reddy Brandt [facility] Start: 06-02-2022 End: 06-02-2022 ambulatory Reddy Brandt Other [employer] Other Start: 06-02-2022 Postop follow up vis it related to original px Reddy Brandt [facility] Start: 05-12-2022 End: 05-12-2022 ambulatory Reddy Brandt Other [employer] Other Start: 05-12-2022 Telephone encounter Reddy MOE G [facility] Start: 05-03-2022 End: 05-03-2022 ambulatory DO Deon Braxton Work Phone: [facility] Work Phone: Start: 05-03-2022 End: 05-03-2022 Patient encounter procedure DO Deon Braxton Work Phone: [facility]-[employer] [address] Start: 04-28-2022 End: 04-28-2022 ambulatory Reddy Brandt Other [employer] Other Start: 04-28-2022 Office outpatient vi sit 15 minutes Reddy Brandt [facility] Start: 04-17-2022 End: 04-17-2022 ambulatory Reddy Brandt Other [employer] Other Start: 04-17-2022 Telephone encounter Reddy MOE G [facility] Start: 04-12-2022 End: 04-12-2022 ambulatory Reddy Brandt Other [employer] Other Start: 04-12-2022 Postop follow up vis it related to original px Reddy Brandt [facility] Start: 03-15-2022 End: 03-15-2022 ambulatory Reddy Brandt Other [employer] Other Start: 03-15-2022 Office outpatient vi sit 15 minutes Reddy Brandt [facility] Start: 02-07-2022 End: 02-07-2022 ambulatory Ghanshyam Kaye Other [employer] Other Start: 02-07-2022 Office outpatient vi sit 15 minutes Ghanshyam Kaye [facility] Start: 02-03-2022 End: 02-03-2022 ambulatory Reddy Brandt Other [employer] Other Start: 02-03-2022 Postop follow up vis it related to original px Reddy Karly [facility] Start: 01-24-2022 End: 01-24-2022 ambulatory Reddy Meehanley Other [employer] Other Start: 01-24-2022 Telephone encounter Reddy Gil [facility] Start: 01-20-2022 End: 01-20-2022 ambulatory Reddy Meehanley Other [employer] Other Start: 01-20-2022 Postop follow up vis it related to original px Reddy Karly [facility] Start: 01-16-2022 End: 01-16-2022 ambulatory Reddy Brandt Other [employer] Other Start: 01-16-2022 Telephone encounter Reddy Gil Prom[employer] 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 Start: 01-06-2022 End: 01-06-2022 ambulatory Reddy Brandt Other [employer] Other Start: 01-06-2022 Postop follow up vis it related to original px Reddy Karly [facility] Start: 12-23-2021 End: 12-23-2021 ambulatory Reddy Brandt Other [employer] Other Start: 12-23-2021 Postop follow up vis it related to original px Reddy Karly [facility] Start: 12-20-2021 End: 12-20-2021 Discharged Recurring DO Deon Braxton Work Phone: [facility] Start: 12-14-2021 End: 12-14-2021 ambulatory Reddy Brandt Other [employer] Other Start: 12-14-2021 Postop follow up vis it related to original px Reddy Karly [facility] Start: 12-12-2021 End: 12-12-2021 ambulatory Reddy Brandt Other [employer] Other Start: 12-12-2021 Telephone encounter Reddy Brandt ABHI G [facility] Start: 12-09-2021 End: 12-09-2021 ambulatory Reddy Brandt Other [facility] Other Start: 12-09-2021 Postop follow up vis it related to original px Reddy Brandt [facility] Start: 11-29-2021 End: 11-29-2021 Evaluation and management of inpatient DO Deon Tashadonna Work Phone: [address] Start: 11-29-2021 End: 11-29-2021 Admission to same day surgery center DO Deon Tashadonna [facility] Start: 11-28-2021 End: 11-28-2021 ambulatory Reddybryan Bradnt Other [facility] Other Start: 11-28-2021 Postop follow up vis it related to original px Reddy Brandt [facility] Start: 11-21-2021 End: 11-21-2021 ambulatory Reddy Brandt Other [facility] Other Start: 11-21-2021 Telephone encounter Reddy MOE [facility] Start: 11-03-2021 End: 11-03-2021 Admission to same day surgery center DO Deon Braxton Work Phone: [facility] Start: 11-02-2021 End: 11-02-2021 ambulatory Reddy Brandt Other [facility] Other Start: 11-02-2021 Postop follow up vis it related to original px Reddy Brandt [facility] Start: 11-02-2021 End: 11-02-2021 Patient encounter procedure DO Deon Braxton Work Phone: [facility]-Pre-Surgical Testing Start: 11-01-2021 End: 11-01-2021 Emergency department patient visit DO Deon Braxton Work Phone: [facility]-Emergency Room Start: 11-01-2021 End: 11-01-2021 ambulatory Reddy Brandt Other [employer] Other Start: 11-01-2021 Telephone encounter Reddy Brandt [facility] Start: 10-31-2021 End: 10-31-2021 ambulatory Reddy Brandt Other [employer] Other Start: 10-31-2021 Postop follow up vis it related to original px Reddy Brandt [facility] Start: 10-21-2021 End: 10-27-2021 Evaluation and management of inpatient DO Deon Braxton Work Phone: [facility] Start: 10-18-2021 End: 10-21-2021 Evaluation and management of inpatient DO Deon Braxotn Work Phone: [facility] Start: 10-14-2021 End: 10-14-2021 Patient encounter procedure DO Deon Braxton Work Phone: [facility]-Pre-Surgical Testing Start: 10-12-2021 End: 10-12-2021 ambulatory Reddy Brandt Other [employer] Other Start: 10-12-2021 Office outpatient vi sit 25 minutes Reddy Brandt [facility] Start: 10-10-2021 End: 10-10-2021 Patient encounter procedure DO Deon Ramoss Work Phone: [facility]MRI [facility] [place] Start: 10-06-2021 End: 10-06-2021 Patient encounter procedure DO Deon Braxton Work Phone: [facility] [place] Start: 10-06-2021 End: 10-06-2021 ambulatory Reddy Brandt Other [employer] Other Start: 10-06-2021 Office outpatient vi sit 25 minutes Pako Aguilar [facility] Start: 10-06-2021 Telephone encounter [facility] Start: 09-29-2021 End: 09-29-2021 Patient encounter procedure DO Deon Braxton Work Phone: [facility]-Pacemaker Check Start: 09-26-2021 End: 09-26-2021 ambulatory Reddy Brandt Other [employer] Other Start: 09-26-2021 Telephone encounter [facility] Start: 09-21-2021 End: 09-21-2021 Patient encounter procedure DO Deon Braxton Work Phone: [facility] Start: 09-21-2021 ambulatory SALINA LEE Faci lity:H1 Start: 09-09-2021 End: 09-10-[address] DEON BRAXTON Facility:H1 Start: 09-09-2021 End: 09-10-2021 ambulatory SALINA LEE Facility:H1 Start: 09-08-2021 End: 09-08-2021 ambulatory Pako Aguilar Other [employer] Other Start: 09-08-2021 Office outpatient vi sit 25 minutes Pako Aguilar [facility] Start: 08-31-2021 End: 09-01-2021 ambulatory SALINA LEE Facility:H1 Start: 08-26-2021 End: 08-27-2021 ambulatory SALINA LEE Facility:H1 Start: 08-24-2021 End: 08-25-2021 ambulatory SALINA LEE Facility:H1 Start: 08-10-2021 ambulatory SALINA LEE Faci lity:H1 Start: 07-05-2021 End: 07-06-2021 ambulatory AMAR WOODY Facility:H1 Start: 06-06-2021 End: 06-07-2021 ambulatory DELNOG O CLOUGHERTY Facility:H1 Start: 06-06-2021 End: 06-07-2021 [...] CL[place]ERTY Facility:H1 Start: 05-13-2021 End: 05-14-2021 ambulatory DELOGN O CLOUGHERTY Facility:H1 Start: 05-09-2021 End: 05-10-2021 [...] LEE Facility:H1 Start: 02-28-2021 ambulatory DEON Ho lity:[facility] Start: 02-23-2021 End: 02-24-2021 ambulatory SALINA LEE Facility:H1 Start: 02-22-2021 ambulatory DEON Ho lity:[facility] Start: 02-17-2021 End: 02-18-2021 ambulatory SALINA LEE Facility:H1 Start: 02-09-2021 Encounter for prepro cedural laboratory examination SALINA LEE [facility] Start: 02-08-2021 End: 02-12-2021 Evaluation and [...] Start: 01-11-2021 End: 01-11-2021 ambulatory DEON BRAXTON Facility:[facility] Start: 01-10-2021 End: 01-11-2021 ambulatory DEON BRAXTON Facility:[facility] Start: 12-08-2020 End: 12-09-[address] DEON BRAXTON Facility:H1 Start: 12-03-2020 End: 12-04-[address] DEON BRAXTON Facility:H1 Start: 11-29-2020 End: 11-30-2020 ambulatory SALINA Walker [facility] Facility:H1 Start: 11-25-2020 End: 11-26-2020 ambulatory SALINA Walker [facility] Facility:H1 Start: 11-22-2020 End: 11-23-2020 ambulatory BALJEET LEONG Facility:H1 Start: 11-18-2020 End: 11-19-2020 ambulatory BALJEET LEONG Facility:H1 Start: 11-11-2020 End: 11-12-2020 ambulatory BALJEET LEONG Facility:H1 Start: 11-04-2020 End: 11-05-2020 ambulatory SALINA Walker [facility] Facility:H1 Procedures Date Procedure Procedure Detail Performing Clinician Start: 05-24-2023 Diabetic retinal eye exam Deon Braxton DO Work Phone: Start: 04-12-2023 Ecg routine ecg w/le ast 12 lds w/i&r Terry Lock CHILD DAY CARE TEACHER-FOOD SERVICE HELPER Work Phone: Start: 03-22-2023 Adult depression scr eening assessment Terry Lock CHILD DAY CARE TEACHER-FOOD SERVICE HELPER Work Phone: Start: 12-29-2022 Diabetic retinal eye exam Terry Lock CHILD DAY CARE TEACHER-FOOD SERVICE HELPER Work Phone: Start: 10-26-2022 Microalbumin [Mass/v olume] in Urine by Test strip Terry Lock CHILD DAY CARE TEACHER-FOOD SERVICE HELPER Work Phone: Start: 11-29-2021 Incision and drainag [...] Joint with Internal Fixation Device, Open Approach [facility] Start: 02-11-2021 Introduction of Othe r Anti-infective into Joints, Open Approach [facility] Start: 02-11-2021 Removal of Spacer fr om Right Ankle Joint, Percutaneous Approach [facility] Start: 02-08-2021 Excision of Right Fi bula, Open Approach [facility] Start: 02-08-2021 Introduction of Othe r Anti-infective into Joints, Open Approach [facility] Start: 02-08-2021 Removal of Internal Fixation Device from Right Ankle Joint, Open Approach [facility] Aerobic microbial culture DO Deon Braxton Work [...] Td Vaccines (2 - Td or Tdap) [facility] Start: 05-24-2024 Glaucoma screening Diabetic Ophthalmology Exam [facility] Start: 04-12-2024 Adult BMI Screening Adult BMI Screening [facility] Start: 04-12-2024 Tobacco Screening Tobacco Screening [facility] Start: 03-22-2024 Depression Screening Depression Screening [facility] Start: 03-22-2024 Fall Risk Screening Fall Risk Screening [facility] Start: 12-30-2023 Glaucoma screening Diabetic Ophthalmology Exam [facility] Start: 11-29-2023 End: 11-29-2023 Patient encounter procedure 11/29/2023 9:00 AM EDT Office Visit [facility] - [facility] Medicine [facility] [place] [address] [facility] - [facility] Start: 11-24-2023 Medicare Annual Wellness Visit Medicare Annual Wellness Visit [facility] Start: 10-27-2023 Diabetic foot examination Diabetic Foot Exam [facility] Start: 10-27-2023 Urine screening for protein Urine Microalbumin [facility] Start: 11-29-2021 [facility] Start: 11-29-2021 [facility] Start: 11-29-2021 Incision and drainage of lower extremity OR I&D Exploration Upper/Lower Extremity (Right) [facility] Start: 11-29-2021 End: 11-29-2021 Admission to same day surgery center [facility] Start: 11-03-2021 [facility] Start: 11-03-2021 [facility] Start: 11-03-2021 Amputation of right lower limb OR Leg Amputation Above/Below (Right) [facility] Start: 11-03-2021 End: 11-03-2021 Admission to same day surgery center Departed [facility] Start: 11-02-2021 End: 11-02-2021 Patient encounter procedure Departed Clinical [facility] Start: 11-01-2021 End: 11-01-2021 Emergency department patient visit Departed Emergency [facility]-Emergency Room Start: 10-27-2021 [facility] Work Phone: Start: 10-21-2021 Hospital admission [facility] Work Phone: Start: 10-21-2021 Referral to clinical tempering oven operator [facility] Work Phone: Start: 10-21-2021 [facility] Work Phone: Start: 10-18-2021 Referral to clinical tempering oven operator [facility] Work Phone: Start: 10-18-2021 Detachment at Right Lower Leg, Mid, Open Approach Detachment at Right Lower Leg, Mid, Open Approach [facility] Start: 10-17-2021 [facility] Work Phone: Start: 10-14-1975 Adult BMI Follow Up Plan Adult BMI Follow Up Plan [facility] Patient Education [facility] Work Phone: Patient referral [facility] Work Phone: SARS-CoV-2 (COVID-19 ) N gene [Presence] in Respiratory specimen by MEREDITH with probe detection [facility] Work Phone: Immunizations Immunization Date Immunization Notes Care Provider Fa cili 03-12-2023 Covid-19,mrna, Lnp-s , Pf, 50mcg/0.5ml 12+ Terry Lock CHILD DAY CARE TEACHER-FOOD SERVICE HELPER Work Phone: [facility] 03-12-2023 Influenza Vaccine, Quadrivalent, Adjuvanted Terry Lock CHILD DAY CARE TEACHER-FOOD SERVICE HELPER Work Phone: [facility] 03-12-2023 RSV, mAb, nirsevimab-alip, 1 mL, to 24 months Terry Lock CHILD DAY CARE TEACHER-FOOD SERVICE HELPER Work Phone: [facility] 03-12-2023 RSV, recombinant, protein subunit RSVpreF, adjuvant reconstituted, 0.5 mL, PF Terry Leo CHILD DAY CARE TEACHER-FOOD SERVICE HELPER Work Phone: [facility] 06-14-2022 zoster vaccine recombinant Terry Leo CHILD DAY CARE TEACHER-FOOD SERVICE HELPER Work Phone: [facility] 04-15-2022 Covid-19, Mrna, Lnp- s, Bivalent, Pf, 50mcg/0.5ml or 25mcg/0.25ml Terry Lock CHILD DAY CARE TEACHER-FOOD SERVICE HELPER Work Phone: [facility] 04-15-2022 zoster vaccine recombinant Terry Leo CHILD DAY CARE TEACHER-FOOD SERVICE HELPER Work Phone: [facility] 04-11-2022 Influenza, High-dose , Quadrivalent Terry Lock CHILD DAY CARE TEACHER-FOOD SERVICE HELPER Work Phone: [facility] 03-01-2021 COVID-19 mRNA-1273 (Moderna) DO [facility] Work Phone: [facility] 03-01-2021 Seasonal, quadrivale nt, recombinant, injectable influenza vaccine, preservative free Terryraisa Lock CHILD DAY CARE TEACHER-FOOD SERVICE HELPER Work Phone: [facility] 06-25-2020 COVID-19 mRNA-1273 (Moderna) DO [facility] Work Phone: [facility] 05-28-2020 COVID-19, mRNA, LNP- S, PF, 100mcg/0.5mL Dose Terry Lock CHILD DAY CARE TEACHER-FOOD SERVICE HELPER Work Phone: [facility] 05-25-2020 COVID-19, mRNA, LNP- S, PF, 100mcg/0.5mL Dose Terry Lock CHILD DAY CARE TEACHER-FOOD SERVICE HELPER Work Phone: [facility] 01-14-2020 influenza, seasonal, injectable Terry Lock CHILD DAY CARE TEACHER-FOOD SERVICE HELPER Work Phone: [facility] 12-30-2019 influenza, injectabl e, quadrivalent, preservative free Terry Lock CHILD DAY CARE TEACHER-FOOD SERVICE HELPER Work Phone: [facility] 04-07-2019 Influenza, injectabl e, Madin Yumiko Canine Kidney, preservative free, quadrivalent Terryraisa Lock CHILD DAY CARE TEACHER-FOOD SERVICE HELPER Work Phone: [facility] 12-31-2018 pneumococcal conjuga te vaccine, 13 valent Terry Lock CHILD DAY CARE TEACHER-FOOD SERVICE HELPER Work Phone: [facility] 01-23-2018 influenza, injectabl e, quadrivalent, contains preservative Terry Lock CHILD DAY CARE TEACHER-FOOD SERVICE HELPER Work Phone: [facility] 01-23-2018 influenza, injectabl e, quadrivalent, preservative free Terryraisa Lock CHILD DAY CARE TEACHER-FOOD SERVICE HELPER Work Phone: [facility] 02-05-2017 influenza, injectabl e, quadrivalent, preservative free Terry Lock CHILD DAY CARE TEACHER-FOOD SERVICE HELPER Work Phone: [facility] 02-05-2017 pneumococcal conjuga te vaccine, 13 valent Terry Lock 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 DAY 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 TEACHER-FOOD SERVICE HELPER Work Phone: [facility] 01-14-2017 influenza, injectabl e, quadrivalent, contains preservative Terry Lock CHILD DAY CARE TEACHER-FOOD SERVICE HELPER Work Phone: [facility] 01-14-2016 tetanus toxoid, redu joseph diphtheria toxoid, and acellular pertussis vaccine, adsorbed Terry Lock APRN-FOOD SERVICE HELPER Work Phone: [facility] 01-02-2016 influenza virus vacc ine, unspecified formulation Terry Lock CHILD DAY CARE TEACHER-FOOD SERVICE HELPER Work Phone: [facility] 08-13-2015 zoster vaccine, live Terry Lock CHILD DAY CARE TEACHER-FOOD SERVICE HELPER Work Phone: [facility] 12-22-2014 influenza, seasonal, injectable, preservative free Terry Lock CHILD DAY CARE TEACHER-FOOD SERVICE HELPER Work Phone: [facility] 01-26-2014 pneumococcal conjuga te vaccine, 13 valent Terry Lock CHILD DAY CARE TEACHER-FOOD SERVICE HELPER Work Phone: [facility] 01-12-2014 influenza, seasonal, injectable Terry Lock APRN-FOOD SERVICE HELPER Work Phone: [facility] 01-12-2014 Seasonal trivalent influenza vaccine, adjuvanted, preservative free Terry Lock CHILD DAY CARE TEACHER-FOOD SERVICE HELPER Work Phone: [facility] 09-17-2012 pneumococcal polysaccharide vaccine, 23 valent Terry Lock CHILD DAY CARE TEACHER-FOOD SERVICE HELPER Work Phone: [facility] 09-17-2012 pneumococcal vaccine , unspecified formulation Terry Lock CHILD DAY CARE TEACHER-FOOD SERVICE HELPER Work Phone: [employer] [facility] Payers Date Payer Category Payer Medicare [id number] 2023 Medicare ANTHEM MEDICARE ANTHEM MEDICARE ADVANTAGE [id number] 2023-[facility] [phone] [address] [place] [address] [id number]. [id number] 2022 Self-pay [id number] 2022 Medicare [id number] 2021 Unknown 1957 Unknown [id number] 2.840.1.945388.3.579.2.196 1957 Unknown [id number] 2.840.1.211137.3.579.2.196 1957 Unknown [id number] 2.840.1.220510.3.579.2.196 1957 Unknown [id number] 2.16840.1.452965.3.579.2.196 1957 Unknown [id number] 2.840.1.743137.3.579.2.593 1957 Unknown [id number] 2.840.1.854424.3.579.2.593 1957 Unknown [id number] 2.16.840.1.511261.3.579.2.593 1957 Unknown [id number] 2.16.840.1.704333.3.579.2.593 1957 Unknown [id number] 2.16.840.1.976767.3.579.2.593 1957 Unknown [id number] 2.16.840.1.125026.3.579.2.59 1957 Unknown [id number] 2.16.840.1.671142.3.579.2.59 1957 Unknown [id number] 2.16.840.1.055033.3.579.2.59 1957 Unknown [id number] 2.16.840.1.510045.3.579.2. 1957 Unknown [id number] 2.16.840.1.205917.3.579.2.593 1957 Unknown [id number] 2.16.840.1.867045.3.579.2.593 1957 Unknown [id number] 2.16.840.1.196197.3.579.2.593 1957 Unknown [id number] 2.16.840.1.043542.3.579.2.59 1957 Unknown [id number] 2.16.840.1.020060.3.579.2.593 1957 Unknown [id number] 2.16.840.1.039745.3.579.2.593 1957 Unknown [id number] 2.16.840.1.977955.3.579.2.593 1957 Unknown [id number] 2.16.840.1.372761.3.579.2.593 1957 Unknown [id number] 2.16.840.1.579601.3.579.2.593 1957 Unknown [id number] 2.16.840.1.107658.3.579.2.593 1957 Unknown [id number] 2.16.840.1.737479.3.579.2.593 1957 Unknown [id number] 2.16.840.1.888627.3.579.2.59 1957 Unknown [id number] 2.16.840.1.846512.3.579.2.593 1957 Unknown [id number] 2.16.840.1.242224.3.579.2. 1957 Unknown [id number] 2.16.840.1.436157.3.579.2. 1957 Unknown [id number] 2.16.840.1.245487.3.579.2. 1957 Unknown [id number] 2.16.840.1.362083.3.579.2. 1957 Unknown [id number] 2.16.840.1.864278.3.579.2.3 1957 Unknown [id number] 2.16.840.1.112290.3.579.2. 1957 Unknown [id number] 2.16.840.1.167594.3.579.2. 1957 Unknown [id number] 2.16.840.1.027005.3.579.2.593 1957 Unknown [id number] 2.16.840.1.947827.3.579.2.59 1957 Unknown [id number] 2.16.840.1.921160.3.579.2.593 1957 Unknown [id number] 2.16.840.1.459656.3.579.2.593 1957 Unknown [id number] 2.16.840.1.245186.3.579.2.593 1957 Unknown [id number] 2.16.840.1.487153.3.579.2.593 1957 Unknown [id number] 2.16.840.1.197462.3.579.2.593 1957 Unknown [id number] 2.16.840.1.055369.3.579.2.593 1957 Unknown [id number] 2.16.840.1.992481.3.579.2.59 1957 Unknown [id number] 2.16.840.1.325274.3.579.2.593 1957 Unknown [id number] 2.16.840.1.449244.3.579.2. 1957 Unknown [id number] 2.16.840.1.413649.3.579.2.593 1957 Unknown [id number] 2.16.840.1.642179.3.579.2.59 1957 Unknown [id number] 2.16.840.1.185112.3.579.2.593 1957 Unknown [id number] 2.16.840.1.256157.3.579.2.593 1957 Unknown [id number] 2.16.840.1.970691.3.579.2.593 1957 Unknown [id number] 2.16.840.1.036545.3.579.2.59 1957 Unknown [id number] 2.16.840.1.233316.3.579.2.593 1957 Unknown [id number] 2.16.840.1.492322.3.579.2.59 1957 Unknown [id number] 2.16.840.1.437033.3.579.2.593 1957 Unknown [id number] 2.16.840.1.203265.3.579.2.593 1957 Unknown [id number] 2.16.840.1.411598.3.579.2.593 1957 Unknown [id number] 2.16.840.1.104540.3.579.2.59 1957 Unknown [id number] 2.16.840.1.989233.3.579.2.59 1957 Unknown [id number] 2.16.840.1.251989.3.579.2.59 1957 Unknown [id number] 2.16.840.1.317141.3.579.2.59 1957 Unknown [id number] 2.16.840.1.240568.3.579.2.59 1957 Unknown [id number] 2.16.840.1.776252.3.579.2.59 1957 Unknown [id number] 2.16.840.1.672901.3.579.2.593 1957 Unknown [id number] 2.16.840.1.975706.3.579.2.1286 1957 Unknown [id number] 2.16.840.1.056892.3.579.2.1286 1957 Unknown [id number] 2.16.840.1.288686.3.579.2.1259 1957 Unknown [id number] 2.16.840.1.908462.3.579.2.1259 1957 Unknown [id number] 2.16.840.1.122318.3.579.2.1259 1957 Unknown [id number] 2.16.840.1.888984.3.579.2.1259 1957 Unknown [id number] 2.16.840.1.393387.3.579.2.1259 1957 Unknown [id number] 2.16.840.1.034252.3.579.2.1259 1957 Unknown [id number] 2.16.840.1.162162.3.579.2.1259 1957 Unknown [id number] 2.16.840.1.950003.3.579.2.1286 1957 Unknown [id number] 2.16.840.1.439462.3.579.2.1286 1957 Unknown [id number] 2.16.840.1.100966.3.579.2.1286 1957 Unknown [id number] 2.16.840.1.542179.3.579.2.1286 Medicare [id number] 2.16.840.1.648899.19 Unknown MMO [id number] Unknown [facility] [id number] Unknown [id number] 2.16.840.1.130358.3.579.2.531 Unknown [id number] 2.16.840.1.715460.3.579.2.531 Social History Date Type Detail Facility Unknown if ever smoked [employer] Other Start: 04-11-2022 End: 04-12-2023 Sex Assigned At [facility] Start: 10-19-2021 End: 01-18-2022 Tobacco smoking status NHIS Never smoked tobacco (finding) [facility] Start: 1955 Sex Assigned At Male [facility] Start: 01-18-2022 Tobacco use and exposure Smokeless tobacco non-user [facility] Start: 04-12-2023 Alcohol intake Current drinker of alcohol (finding) [facility] Start: 04-11-2022 End: 04-12-2023 History of Social function [facility] Do you belong to any clubs or organizations such as jehovah's witness groups, unions, fraternal or athletic groups, or school groups? No [facility] Are you now , , , , never or living with a partner? [facility] How often to you hav e a drink containing alcohol? 2-4 times a month [facility] How many standard dr inks containing alcohol do you have on a typical day? 1 or 2 [facility] How often do you hav e 6 or more drinks on 1 occasion? Never [facility] How hard is it for y ou to pay for the very basics like food, housing, medical care, and heating Somewhat hard [facility] Adolescent depressio n screening assessment 0 [facility] Do you feel stress - tense, restless, nervous, or anxious, or unable to sleep at night because your mind is troubled all the time - these days [OSQ] Not at all [facility] Start: 04-11-2022 Education 21 [facility] Start: 09-10-2019 Alcohol Comment social [facility] Start: 1955 Sex Assigned At Not on file [facility] Medical Equipment Procedure Code Equipment Code Equipment Origin al Text Equipment Identifier Dates Gft Hmn Tiss 250 mg Amniofill - [id number] - [id number] Start: 12-27-2018 Gft Sft Tis Matr istem - [id number] - [id number] Start: 01-27-2019 Tiss Grafix Prim e 3x4cm - [id number] - [id number] Start: 09-15-2019 Evera Mri Xt Vr Defibrillator [id number] Start: 07-13-2015 Sprint Quattro S ecure Mri [id number] Start: 07-13-2015 Tissue Epifix 2x 4 Cm - [id number] - [id number] Start: 12-27-2018 USE DIRECTED FOUR TIMES DAILY [id number] Start: 08-07-2022 Goals Date Patient Goal Desired [...] status Patient is Pro gressing Toward Baseline [facility] Work Phone: 10-21-2021 Functional status Patient is Pro gressing Toward Baseline [facility] Work Phone: 10-18-2021 Functional status Patient at Baseline [facility] Work Phone: Mental Status Date Assessment Result Facility 10-27-2021 Cognitive function Cognitive Sta tus Patient at Baseline [facility] Work Phone: 10-21-2021 Cognitive function Cognitive Sta tus Patient is Progressing Toward Baseline [facility] Work Phone: 10-18-2021 Cognitive function Cognitive Sta tus Patient at Baseline [facility] Work Phone: Clinical Notes 01-05-2021 to 04-12-2023 Terry Lock, [facility] - 04/12/2023 11:30 AM Sue High LPN [...] arthropathy, with long-term current use of insulin ([facility]) Chronic systolic congestive heart failure ([facility]) Coronary artery disease involving apache coronary artery of apache heart without angina pectoris Hearing loss Personal history of colonic polyps Colon polyps Diverticulosis large intestine w/o perforation or abscess w/o bleeding Chronic obstructive pulmonary disease ([facility]) 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 Gastroesophageal reflux disease with esophagitis without hemorrhage Stage 3b chronic kidney disease ([facility]) Subepithelial esophageal mass Sarcoidosis Diabetic retinopathy ([facility]) Obstructive sleep apnea syndrome Diabetic neuropathy ([facility]) Bilateral sensorineural hearing loss Unilateral complete AKA, right ([facility]) Allergies Allergen Reactions Doxycycline Other reaction(s): Chest Pain Levofloxacin Other reaction(s): Chest Pain Chlorpheniramine Dextromethorphan Hbr Itching Asvyplxlb-Vt-Cirugrywygvol Guaifenesin Other reaction(s): Itching of skin Hydrocodone [...] involving left anterior descending (LAD) coronary artery ([facility]) 05/28/2015 Hyperlipidemia Interstitial lung disease ([facility]) Left ventricular failure ([facility]) MRSA (methicillin resistant staph aureus) culture positive Peptic ulceration Presence of automatic (implantable) cardiac defibrillator ST elevation (STEMI) myocardial infarction ([facility]) 2015 x 5 stents Stage 3b chronic kidney disease ([facility]) 04/22/2020 Unilateral complete AKA, right ([facility]) 03/31/2022 No data recorded No data recorded No data recorded Past Surgical History: Procedure Laterality Date ANKLE LIGAMENT RECONSTRUCTION Right 2020 APPLICATION AMNIOFILL Right 12/27/2018 Performed by Arlen Olguin DPM at [facility] APPLICATION WOUND VAC ( NOT done) Right 01/27/2019 Performed by Terry Hector DPM at [facility] CARDIAC DEFIBRILLATOR PLACEMENT 07/13/2015 [employer] COLONOSCOPY N/A 04/07/2020 Performed by Deon Braxton DO at [facility] DEBRIDEMENT FOOT EXCISION RT FOOT ULCER, APPLICATION BIOLOGIC SKIN GRAFT RT FOOT, APPLICATION OF WOUND VAC RT FOOT Right 01/27/2019 Performed by Terry Hector DPM at [facility] DEBRIDEMENT FOOT WITH APPLICATION OF GRAFIX Right 09/15/2019 Performed by Terry Hector DPM at [facility] ESOPHAGOGASTRODUODENOSCOPY N/A 05/19/2020 Performed by Deon Braxton DO at [facility] EXCISION 5TH METATARSAL Right 12/30/2018 Performed by Terry Hector DPM at [facility] FINGER SURGERY FOOT SURGERY 07/2020 KNEE SURGERY Bilateral LAPAROSCOPIC CHOLECYSTECTOMY N/A 06/21/2020 Performed by Deon Justice MD at [facility] LENGTHENING TENDON RIGHT, PLANTAR FASCIOTOMY Right 09/15/2019 Performed by Terry Hector DPM at [facility] SKIN GRAFT LOWER EXTREMITY (APPLICATION OF BIOLOGIC SKIN GRAFT RT FOOT Right 01/27/2019 Performed by Terry Hector DPM at [facility] Family History Problem Relation Age of [...] min Stress: No Stress Concern Present (04/11/2022) [place] [employer] - Occupational Stress Questionnaire Feeling of Stress : Not at all Social Connections: Moderately Integrated (04/11/2022) Social Connection and Isolation Panel [NHANES] Frequency of Communication with Friends and Family: Twice a week Frequency of Social Gatherings with Friends and Family: Twice a week Attends Jainism Services: 1 to 4 times per year [...] Verbalized understanding 2. Coronary artery disease involving apache coronary artery of apache heart without angina pectoris -aspirin, statin, beta-doreen 3. Ischemic cardiomyopathy -carvedilol, losartan, Aldactone 4. Chronic systolic congestive heart failure (CMS-HCC) -compensated 5. Apical mural thrombus -small, fixed on echocardiogram 04/2020 -has been maintained on Eliquis therapy 5 mg b.i.d. 6. Essential (primary) hypertension -well controlled 7. Cardiac defibrillator in place- KODA -3.4 years of battery life as of [...] Referring Physician: Deon Braxton DO [address] [place] [address] FANNY Owens 04/12/23 1145 Office note faxed to Dr Lee for clearance documented in this encounter [facility] Evaluation note Encounter Date Diagnosis Assessment Notes Dec, Charcot foot due to diabetes mellitus (ICD-10 - E11.610) Dec, Status post transmetatarsal amputation of left foot (ICD-10 - Z89.432) as above, RX written. Dec, Hx of right BKA (ICD-10 - Z89.511) [employer] Other 07-06-2023 Evaluation note* Encounter Date Diagnosis [...] months. Sep, Peripheral polyneuropathy (ICD-10 - G62.9) [employer] Other 05-03-2023 Evaluation note* Encounter Date Diagnosis [...] elsewhere classified, subsequent encounter (ICD-10 - T81.31XD) [employer] Other 03-03-2023 Evaluation note* Encounter Date Diagnosis [...] this time. Patient is following up at [facility] for changes to prosthetic. I did recommend use of a cane to help offload some weight which may reduce his pain. Patient voiced understanding and states no further questions at this time. May, Other specified postprocedural states (ICD-10 - Z98.890) May, Postoperative wound dehiscence, initial encounter (ICD-10 - T81.31XA) [employer] Other 01-27-2023 Evaluation note* Encounter Date Diagnosis [...] a band-aid. [facility]. I [...] wound dehiscence, initial encounter (ICD-10 - T81.31XA) [employer] Other 01-11-2023 Evaluation note* Encounter Date Diagnosis [...] wound dehiscence, initial encounter (ICD-10 - T81.31XA) [employer] Other 12-14-2022 Evaluation note* Encounter Date Diagnosis [...] wound dehiscence, initial encounter (ICD-10 - T81.31XA) [employer] Other 11-08-2022 Evaluation note* Encounter Date Diagnosis Assessment Notes Treatment Notes Treatment Clinical Notes Jan, Right below-knee amputee (ICD-10 - Z89.511) Proceed with K3 level, transtibial prosthesis, preparatory. Diligent monitoring of residual limb. Stop wearing prosthesis immediately if wound should worsen, develop erythema, increased pain, etc. Wearing schedule. [employer] Other 11-04-2022 Evaluation note* Encounter Date Diagnosis [...] wound dehiscence, initial encounter (ICD-10 - T81.31XA) [employer] Other 10-21-2022 Evaluation note* Encounter Date Diagnosis [...] wound dehiscence, initial encounter (ICD-10 - T81.31XA) [employer] Other 10-07-2022 Evaluation note* Encounter Date Diagnosis [...] wound dehiscence, initial encounter (ICD-10 - T81.31XA) [employer] Other 09-23-2022 Evaluation note* Encounter Date Diagnosis [...] wound dehiscence, initial encounter (ICD-10 - T81.31XA) [employer] Other 09-14-2022 Evaluation note* Encounter Date Diagnosis [...] wound dehiscence, initial encounter (ICD-10 - T81.31XA) [employer] Other 09-09-2022 Evaluation note* Encounter Date Diagnosis [...] infectious disease. Faxed wound center information to [phone] and left a voicemail. Dec, Other specified postprocedural states (ICD-10 - Z98.890) Dec, Postoperative wound dehiscence, initial encounter (ICD-10 - T81.31XA) [employer] Other 08-30-2022 History and physical note Author Reddy Brandt [facility] November 29, 2021 11:49am Note Date/Time November 29, 2021 11 :32am [facility] [address] [place] [address] Orthopedic Surgery H&P Signed Patient: Anai Goodman MR#: [id number] : 1955 Acct:[id number] Age/Sex: 66 / M Adm Date: 2 Loc: [facility] Room: Type: [facility] Attending Dr: Reddy Brandt DO Copies to: [...] poor healing. I have advised against the buttermaker use of narcotic pain medication. I have advised to follow all post-operative instructions in order to obtain the best outcome. Informed consent has been verbally affirmed and signed as indicated. Documented By: Reddy Brandt DO 11/29/21 1129 Signed By: <Electronically signed by Reddy Brandt DO> 11/29/21 1149 [facility] Work Phone: 1(595) 225-691308-29-2022 Evaluation note* Encounter Date Diagnosis Assessment Notes [...] remova l of sutures (ICD-10 - Z48.02) [employer] Other 08-03-2022 Evaluation note* Encounter Date Diagnosis [...] was in understanding and wishes to proceed. [employer] Other 08-01-2022 Evaluation note* Encounter Date Diagnosis [...] move forward with treatment at this time. [employer] Other 07-27-2022 Progress note Author Ghanshyam Kaye [facility] October 25, 2021 11:37pm Note Date/Time October 25, 2021 11:3 7pm [facility] [address] [place] [address] Physiatry(Rehab) Progress Note Signed Patient: Anai Goodman MR#: [id number] : 1955 Acct:[id number] Age/Sex: 66 / M Adm Date: 2 Loc: Room: 2U4936-5 Type : ADM IN Attending Dr: Ghanshyam Kaye MD Copies to: ~ Date of Service: 10/25/2021 Subjective Subjective Narrative: Mr. Goodman is a 66 year old male who is admitted to [facility] inpatient rehab for strengthening s/p [...] % (Auto) 69.1 Lymph % (Auto) 9.4 Marathon % (Auto) 14.5 Eos % (Auto) 6.7 Baso % (Auto) 0.3 Neut # (Auto) 4.0 Lymph # (Auto) 0.5 L [place] # (Auto) 0.8 Eos # (Auto) 0.4 [...] MPV Neut % (Auto) Lymph % (Auto) [place] % (Auto) Eos % (Auto) Baso % (Auto) Neut # (Auto) Lymph # (Auto) [place] # (Auto) Eos # (Auto) Baso # [...] mg 10/21/21 17:51 Bisacodyl 10 Mg Supp.Rect PA 10/21/22 17:50 DAILY PRN Constipation Bumetanide 1 [...] 17:51 Docusate Enema 283 Mg/5 Ml Enema PA 10/21/22 17:50 DAILY PRN Constipation Insulin Aspart 0 units 10/21/21 17:00 10/25/21 20:27 Insulin Aspart 300 Units/3 Ml Insuln.Pen SUBCUT 10/21/22 16:59 7 units TID.WM.[facility] Administration Protocol Insulin Aspart 0 units 10/21/21 17:00 10/25/21 20:30 Insulin Aspart 300 Units/3 Ml Insuln.Pen SUBCUT 10/21/22 16:59 Not Given TID.WITH.MEALS.[facility] Protocol Insulin Detemir 40 units 10/21/21 22:00 10/25/21 20:28 Insulin Detemir 300 Units/3 Ml Insuln.Pen SUBCUT 10/21/22 21:59 40 units QHS CB Administration Lactulose 30 gm 10/21/21 17:51 Lactulose 20 Gm/30 Ml Udc PO 10/21/22 17:50 DAILY PRN Constipation Losartan Potassium 25 mg 10/22/21 09:00 10/25/21 08:08 Losartan 25 Mg Tablet PO 10/22/22 08:59 25 mg QAM [facility] Administration Magnesium Oxide 400 mg 10/22/21 09:00 10/25/21 08:07 Magnesium Oxide 400 Mg Tablet PO 10/22/22 08:59 400 mg QAM [facility] Administration Multivitamins 1 tab 10/22/21 09:00 10/25/21 [...] greater than 25 minutes for services, including qhdr-tr-elhn encounter with the patient, discussion of the case, plan of care, and exam; and nwqjzrw-kj-zjjc activities, such as reviewing pertinent wellness consultant documentation, recent therapy notes, laboratory and radiology studies, and discussionof case with care team including nursing, patient case manager, and therapists. More than 50 % of time was spent on patient/family counseling or coordination ofcare. Documented By: Ghanshyam Kaye MD 10/25/212333 Signed By: <Electronically signed by Ghanshyam Kaye MD> 10/25/212336 [facility] Work Phone: 1(340) 729-958907-26-2022 Progress note Author Ghanshyam Kaye [facility] October 25, 2021 10:20am Note Date/Time October 23, 2021 11:5 7am [facility] [address] [place] [address] Physiatry(Rehab) Progress Note Signed Patient: Anai Goodman MR#: [id number] : 1955 Acct:[id number] Age/Sex: 66 / M Adm Date: 2 Loc: Room: [address] [place] [address] Type : ADM IN Attending Dr: Ghanshyam Kaye MD Copies to: ~ <Chante Narayan APRN - Last Filed: 10/23/21 11:57> Date of Service: 10/23/2021 Subjective <Chante KRUNAL Narayan - Last Filed: 10/23/21 11:57> Subjective Narrative: Mr. Goodman is a 66 year old male who is admitted to [facility] inpatient rehab for strengthening s/p [...] about discharge, wants to talk to case management director about insurance coverage, but thinks he would [...] good Judgment: judgment good Objective <Chante Narayan, CHILD DAY CARE TEACHER - Last Filed: 10/23/21 11:57> Labs CBC [...] mg 10/21/21 17:51 Bisacodyl 10 Mg Supp.Rect PA 10/21/22 17:50 DAILY PRN Constipation Bumetanide 2 [...] 17:51 Docusate Enema 283 Mg/5 Ml Enema PA 10/21/22 17:50 DAILY PRN Constipation Insulin Aspart [...] mcg BID CB Administration Assessment/Plan <Chante Narayan, CHILD DAY CARE TEACHER - Last Filed: 10/23/21 11:57> Assessment/Plan [...] greater than 15 minutes for services, including xxig-zm-oivb encounter with the patient, discussion of the case, plan of care, and exam; and utjoktq-yx-efuk activities, such as reviewing pertinent wellness consultant documentation, recent therapy notes, laboratory and radiology studies, and discussion of case with care team including physician, nursing, patient case manager, and therapists. More than 50 % of [...] the chart, including currentorders, allied health and wellness consultant notes, labs/imaging and plan of care as above. Documented By: Chante Narayan APRN 10/23/21 1 150 Signed By: <Electronically signed by KRUNAL Narayan> 10/23/21 1157 <Electronically signed by Ghanshyam Kaye MD> 10/25/21 1020 [facility] Work Phone: 1(818) 345-550407-26-2022 History and physical note Author Ghanshyam Kaye [facility] October 25, 2021 9:36am Note Date/Time October 22, 2021 9:59 am [facility] [address] [place] [address] Physiatry (Rehab) H&P Signed Patient: Anai Goodman MR#: [id number] : 1955 Acct:[id number] Age/Sex: 66 / M Adm Date: 2 Loc: Room: 3W6226-9 Type : ADM IN Attending Dr: Ghanshyam Kaye MD Copies to: KRUNAL Mendez DO Joseph Riley, MD~ <Chante Narayan APRN - Last Filed: 10/22/21 10:24> Date of Service: 10/22/2021 HPI <Chante Narayan APRN - Last Filed: 10/22/21 10:24> The patient was seen and examined on: 10/21/21 History of Present Illness: Mr. Goodman is a 66 year old male who is admitted to [facility] inpatient rehab for strengthening s/p [...] Tablet) 100 mg PO QHS [facility] Stop: 10/21/22 21:59 Last Admin: 10/21/21 22:12 Dose: 100 mg Atorvastatin Calcium (Atorvastatin 80 Mg Tablet) 80 mg PO QAM [facility] Stop: 10/22/22 08:59 Last Admin: 10/22/21 08:05 Dose: 80 mg Bisacodyl (Bisacodyl 10 Mg Supp.Rect) 10 mg PA DAILY PRN PRN Reason: Constipation Stop: 10/21/22 17:50 Bumetanide (Bumetanide 2 Mg Tablet) 2 mg PO BID [facility] Stop: 10/21/22 20:59 Last Admin: 10/22/21 08:02 Dose: 2 mg Carvedilol (Carvedilol 6.25 Mg Tablet) 6.25 mg PO BID [facility] Stop: 10/21/22 20:59 Last Admin: 10/22/21 08:02 Dose: 6.25 mg Docusate Sodium (Docusate 100 Mg Capsule) 100 mg PO BID PRN PRN Reason: Constipation Stop: 10/21/22 17:50 Docusate Sodium (Docusate Enema 283 Mg/5 Ml Enema) 283 mg PA DAILY PRN PRN Reason: Constipation Stop: 10/21/22 17:50 Insulin Aspart (Insulin Aspart 300 Units/3 Ml Insuln.Pen) 0 units SUBCUT TID.WM.[facility]; Protocol Stop: 10/21/22 16:59 Last Admin: 10/22/21 08:01 Dose: 1 units Insulin Aspart (Insulin Aspart 300 Units/3 Ml Insuln.Pen) 0 units SUBCUT TID.WITH.MEALS.[facility]; Protocol Stop: 10/21/22 16:59 Last Admin: 10/22/21 08:01 Dose: 4 units Insulin Detemir (Insulin Detemir 300 Units/3 Ml Insuln.Pen) 40 units SUBCUT QSCH Stop: 10/21/22 21:59 Last Admin: 10/21/21 22:02 Dose: 40 units Lactulose (Lactulose 20 Gm/30 Ml Udc) 30 gm PO DAILY PRN PRN Reason: Constipation Stop: 10/21/22 17:50 Losartan Potassium (Losartan 25 Mg Tablet) 25 mg PO QAM [facility] Stop: 10/22/22 08:59 Last Admin: 10/22/21 08:05 Dose: 25 mg Magnesium Oxide (Magnesium Oxide 400 Mg Tablet) 400 mg PO QAM [facility] Stop: 10/22/22 08:59 Last Admin: 10/22/21 08:05 Dose: 400 mg Multivitamins (Multivitamin 1 Tab Tablet) 1 tab PO QAM [facility] Stop: 10/22/22 08:59 Last Admin: 10/22/21 08:05 Dose: 1 tab Nitroglycerin (Nitroglycerin 0.4 Mg Tab.Subl) 0.4 mg SUBLINGUAL DAILY PRN PRN Reason: Chest Pain Stop: 10/21/22 15:49 Rivaroxaban (Rivaroxaban 10 Mg Tablet) 10 mg PO DAILY [facility] Stop: 10/22/22 08:59 Last Admin: 10/22/21 08:06 Dose: 10 mg Fluticasone/Salmeterol (Fluticasone/Salmeterol 232-14 Mcg 60 Puff Inhaler) 1 puff INHALATION BID [facility] Stop: 10/21/22 20:59 Last Admin: 10/22/21 05:10 Dose: 1 puff Sennosides (Sennosides 8.6 Mg Tablet) 2 tab PO DAILY@12 PRN PRN Reason: If no BM in 2 days Stop: 10/22/22 11:59 Sodium Chloride (Sodium Chloride 0.9 % 10 Ml Syringe) 0 ml IV-PUSH PRN PRN PRN Reason: Flush Stop: 10/21/22 17:50 Spironolactone (Spironolactone 25 Mg Tablet) 25 mg PO QAM [facility] Stop: 10/22/22 08:59 Last Admin: 10/22/21 08:05 Dose: 25 mg Vitamin D (Cholecalciferol 125 Mcg (5,000 Units) Tablet) 250 mcg PO BID [facility] Stop: 10/21/22 20:59 Last Admin: 10/22/21 08:02 [...] % (Auto) 70.1 Lymph % (Auto) 10.0 Marathon % (Auto) 14.8 Eos % (Auto) 4.5 Baso % (Auto) 0.6 Neut # (Auto) 4.6 Lymph # (Auto) 0.7 L [place] # (Auto) 1.0 H Eos # (Auto) [...] MPV Neut % (Auto) Lymph % (Auto) Marathon % (Auto) Eos % (Auto) Baso % (Auto) Neut # (Auto) Lymph # (Auto) Marathon # (Auto) Eos # (Auto) Baso # [...] 24 hour daily monitoring and intervention from Technical Sales Support Manager as well as other consulting physicians including internal medicine as well as 24 hour daily stripping machine operator nursing - for medical safe / optimal [...] oriented plan of care Assessment/Plan <Chante Narayan, CHILD DAY CARE TEACHER - Last Filed: 10/22/21 10:24> (1) [...] greater than 30 minutes for services, including ytyi-wc-xjjx encounter with the patient, discussion of the case, plan of care, and exam; and pnmczdy-xj-hjwe activities, such as reviewing pertinent wellness consultant documentation, recent therapy notes, laboratory and radiology studies, and discussion of case with care team including physician, nursing, patient case manager, and therapists. More than 50 % of [...] Allied health note review, nursing note review, wellness consultant note review, discussion with nursing and [...] chart, including current orders, allied health and wellness consultant notes, labs/imaging and performed rosado elements of exam and I formulated the plan of care and facilitated the medical decision making and confirmed the nurse practitioner note, as above Documented By: Chante Narayan APRN 10/22/21 0 949 Signed By: <Electronically signed by KRUNAL Narayan> 10/22/21 1024 <Electronically signed by Ghanshyam Kaye MD> 10/25/21 1764 [facility] Work Phone: 1(457) 407-537407-24-2022 Progress note Author Bronwyn Alegre [facility] October 23, 2021 3:11pm Note Date/Time October 23, 2021 3:11 pm [facility] [address] [place] [address] Hospitalist Progress Note Signed Patient: Anai Goodman MR#: [id number] : 1955 Acct:[id number] Age/Sex: 66 / M Adm Date: 2 Loc: Room: 0F3822-2 Type : ADM IN Attending Dr: Ghanshyam [...] mg 10/21/21 17:51 Bisacodyl 10 Mg Supp.Rect PA 10/21/22 17:50 DAILY PRN Constipation Bumetanide 1 [...] 17:51 Docusate Enema 283 Mg/5 Ml Enema PA 10/21/22 17:50 DAILY PRN Constipation Insulin Aspart [...] Losartan, Spironolactone 2.? GRACY on CPAP 3. D4YL-H5m 7.3, continue detemir, SSI 4. CKD 3?trend [...] PCP and out patient providers to obtain [facility] record entirely to follow up on illnesses, symptoms, abnormal findings that I have and have not addressed duringthis encounter and hospitalization in out patient setting. Documented By: Bronwyn Alegre MD 10/23/21 1509 Signed By: <Electronically signed by Bronwyn Alegre MD> 10/23/21 1512 [facility] Work Phone: 1(887) 678-478207-24-2022 Consult note Author Bronwyn Alegre [facility] October 23, 2021 7:04am Note Date/Time October 22, 2021 4:18 pm [facility] [address] [place] [address] Hospitalist Consult Note Signed Patient: Anai Goodman MR#: [id number] : 1955 Acct:[id number] Age/Sex: 66 / M Adm Date: 2 Loc: Room: [address] [place] [address] Type : ADM IN Attending Dr: Ghanshyam Kaye MD Copies to: DO Ghanshyam Rushing MD Lynn A Stackhouse, ANP-BC Bronwyn Algere MD~ HPI DATE OF CONSULTATION: 10/22/21 REQUESTING [...] unless noted below or in HPI [facility] Attestation Statement: The following information was [...] mg 10/21/21 17:51 Bisacodyl 10 Mg Supp.Rect PA 10/21/22 17:50 DAILY PRN Constipation Bumetanide 2 [...] 17:51 Docusate Enema 283 Mg/5 Ml Enema PA 10/21/22 17:50 DAILY PRN Constipation Insulin Aspart 0 units 10/21/21 17:00 10/22/21 12:45 Insulin Aspart 300 Units/3 Ml Insuln.Pen SUBCUT 10/21/22 16:59 2 units TID.WM. CB Administration Protocol Insulin Aspart 0 units 10/21/21 17:00 10/22/21 12:46 Insulin Aspart 300 Units/3 Ml Insuln.Pen SUBCUT 10/21/22 16:59 2 units TID.WITH.MEALS.[facility] Administration Protocol Insulin Detemir 40 units 10/21/21 [...] % (Auto) 70.1, Lymph % (Auto) 10.0, Marathon % (Auto) 14.8, Eos % (Auto) 4.5, Baso % (Auto) 0.6, Neut # (Auto) 4.6, Lymph # (Auto) 0.7 L, Marathon # (Auto) 1.0 H, Eos # (Auto) [...] Losartan, Spironolactone 2.? GRACY on CPAP 3. [id number] 7.3, continue detemir, SSI 4. CKD 3?trend labs Documented By: ABDIRASHID Olmedo 2 1618 Signed By: <Electronically signed by ANP-SAUMYA Matias> 10/22/21 1658 <Electronically signed by Bronwyn Alegre MD> 10/23/21 0704 [facility] Work Phone: 1(558) 710-170107-22-2022 Progress note Author Rodriguez Loera [facility] October 21, 2021 8:37am Note Date/Time October 20, 2021 11:0 8am [facility] [address] [place] [address] Hospitalist Progress Note Signed Patient: Anai Goodman MR#: [id number] : 1955 Acct:[id number] Age/Sex: 66 / M Adm Date: 2 Loc: 4N Room: [id number] Type : ADM IN Attending Dr: Reddy [...] Lactated Ringers IV 10/18/22 07:29 Not Given .[id number] CB Insulin Aspart 0 units 10/18/21 08:00 [...] signed by Rodriguez Loera MD> 10/21/21 0837 [facility] Work Phone: 1(408) 896-374607-21-2022 Progress note Author Rodriguez Loera [facility] October 20, 2021 8:45am Note Date/Time October 19, 2021 11:2 8am [facility] [address] [place] [address] Hospitalist Progress Note Signed Patient: Anai Goodman MR#: [id number] : 1955 Acct:[id number] Age/Sex: 66 / M Adm Date: 2 Loc: 4 Room: [address] [place] [address] Type : ADM IN Attending Dr: Reddy [...] Lactated Ringers IV 10/18/22 07:29 75 mls/hr .[id number] CB Administration Insulin Aspart 0 units 10/18/21 [...] signed by Rodriguez Loera MD> 10/20/21 0845 [facility] Work Phone: 1(131) 694-326107-20-2022 Progress note Author Reddy Brandt [facility] October 19, 2021 12:11pm Note Date/Time October 19, 2021 12:1 1pm [facility] [address] [place] [address] Orthopedic Progress Note Signed Patient: Anai Goodman MR#: [id number] : 1955 Acct:[id number] Age/Sex: 66 / M Adm Date: 2 Loc: 4N Room: [address] [place] [address] Type : ADM IN Attending Dr: Reddy [...] signed by Reddy Brandt DO> 10/19/21 1211 [facility] Work Phone: 1(631) 289-497507-20-2022 Consult note Author Stewart Lucio [facility] October 19, 2021 1:42am Note Date/Time October 19, 2021 1:11 am [facility] [address] [place] [address] Hospitalist Consult Note Signed Patient: Anai Goodman MR#: [id number] : 1955 Acct:[id number] Age/Sex: 66 / M Adm Date: 2 Loc: 4 Room: [address] [place] [address] Type : ADM IN Attending Dr: Reddy [...] unless noted in the HPI below [facility] Attestation Statement: The following information was [...] Lactated Ringers IV 10/18/22 07:29 75 mls/hr .[id number] CB Administration Cefazolin Sodium 1 gm in [...] 10/18/22 07:59 6 units TID.WM.HS [facility] Administration Protocol Insulin Aspart 0 units 10/18/21 17:00 10/18/21 23:37 Insulin Aspart 300 Units/3 Ml Insuln.Pen SUBCUT 10/18/22 16:59 Not Given TID.WM.HS [facility] Insulin Detemir 40 units 10/18/21 22:00 10/18/21 21:39 Insulin Detemir 300 Units/3 Ml Insuln.Pen SUBCUT 10/18/22 21:59 40 units QHS [facility] Administration Losartan Potassium 25 mg 10/19/21 09:00 Losartan 25 Mg Tablet PO 10/19/22 08:59 QAM [facility] Magnesium Oxide 400 mg 10/19/21 09:00 Magnesium Oxide 400 Mg Tablet PO 10/19/22 [facility] [place] Multivitamins 1 tab 10/19/21 09:00 Multivitamin 1 Tab Tablet PO 10/19/22 08:59 QAM [facility] Nitroglycerin 0.4 mg 10/18/21 15:44 Nitroglycerin 0.4 [...] Tablet PO 10/19/22 08:59 DAILY [facility] Fluticasone/Salmeterol 1 puff 10/19/21 09:00 Fluticasone/Salmeterol 232-14 Mcg 60 Puff Inhaler INHALATION 10/19/22 08:59 BID [facility] Sodium Chloride 0 ml 10/18/21 14:00 10/18/21 [...] signed by Stewart Lucio MD> 10/19/21 0142 [facility] Work Phone: [phone] 147-862507-13-2022 Evaluation note* Encounter Date Diagnosis Assessment Notes [...] poor healing. I have advised against the half-way use of narcotic pain medication. I have [...] osteomyelitis of right tibia (ICD-10 - M86.661) [employer] Other 07-07-2022 Evaluation note* Encounter Date Diagnosis Assessment Notes Treatment Notes Treatment Clinical Notes Sep, Other chronic osteomyelitis of right tibia (ICD-10 - M86.661) [employer] Other 07-07-2022 Evaluation note* Encounter Date Diagnosis [...] place his pacemaker into MRI mode. Anyway rehab technician was very helpful and she is [...] worse they are to call me WALT. [employer] Other 06-09-2022 Evaluation note* Encounter Date Diagnosis [...] to a suppressive dose at that time [employer] Other 11-23-2021 NoteChief Complaint Basal cell carcinoma [...] 03/03/2021 PATIENT : 1955 LOCATION OF PROCEDURE: [facility] SURGEON: Chirag Gutierrez DO INFORMED CONSENT: Obtained by and on file at [facility] CC: [Basal cell carcinoma left ear [...] get a repeat audiogr (more content not included)...[facility]10-11-2021 NoteChief Complaint Open wound Left ear History of Present Illness PLANNED PROCEDURE: Excision and preparation of surgical site, complex plastics myocutaneous advancement flap tear of left ear defect DATE OF PROCEDURE: 01/11/2021 PATIENT : 1955 LOCATION OF PROCEDURE: [facility], SURGEON: Chirag Gutierrez DO INFORMED CONSENT: Obtained by and on file at [facility] CC: Basal cell carcinoma left ear [...] reconstruction amputation of le (more content not included)...[facility] 01-05-2021 NoteChief Complaint MOHs procedure to left [...] Dr. Freed. Previous pathology by physician in [place] about 1 year ago. PMHx of multiple [...] patient presented to the [facility] with a chief concern of skin [...] and corroborated preoperatively wit (more content not included)...[facility]10-06-2021 NoteClinical Information Procedure: Excision with frozen section left ear Pre-operative diagnosis: Basal cell carcinoma Outside pathology report from [facility] was received with accession number [id number]. SP Specimen A Skin of left ear, [...] skin without gross lesi (more content not included)...[facility] System[facility] above:Performed By: #### SPR ####[facility] (DEFAULT)[address] [place], [place] [id number] summary Author Ghanshyam Kaye [facility] October 28, 2021 10:30am Note Date/Time October 27, 2021 1:34 pm [facility] [address] [place] [id number] Discharge Summary Signed Patient: Anai Goodman MR#: [id number] : 1955 Acct:[id number] Age/Sex: 66 / M Adm Date: 2 Loc: Room: 5J0266-[address]: Ghanshyam Kaye MD Copies to: [...] year old male who was admitted to [facility] inpatient rehabfor strengthening s/p planned [...] Patient's was on Xarelto while inpatient. Per [facility] pharmacy , insurance co-pay would [...] year old male who was admitted to [facility] inpatient rehabfor strengthening s/p planned [...] Patient's was on Xarelto while inpatient. Per [facility] pharmacy , insurance co-pay would [...] home prior. Your Home Health agency is [facility] ( ). They will usually contact you [...] them prior to your appointment. Instructions: Amputation, [id number] (DC) Stand Alone Forms: Insulin Corrective Scale [...] signed by Ghanshyam Kaye MD> 10/28/21 1030 [facility] Work Phone: Evaluation noteNo [employer] Other Evaluation note* Diagnosis Onset Date Resolution Status Below knee amputation acute Type 2 diabetes mellitus acu te [facility] Work Phone: Evaluation note* Diagnosis Onset Date [...] wound of skin acute Wound dehiscence acute [facility] Work Phone: evaluation note* Diagnosis Onset Date Resolution Status Below knee amputation acute Dehiscence of wound of skin acute Wound dehiscence acute [facility] Work Phone: evaluation noteNo assessment information available [facility] Work Phone: evaluation note* Diagnosis Preop cardiovascular exam- Primary Pre-operative cardiovascular examination Coronary artery disease involving apache coronary artery of apache heart without angina pectoris Ischemic cardiomyopathy Other specified forms of chronic ischemic heart disease Chronic systolic congestive heart failure ([facility]) Apical mural thrombus Essential (primary) hypertension Unspecified essential hypertension Cardiac defibrillator in place- [employer] Automatic implantable cardiac defibrillator in situ Mixed hyperlipidemia documented in this encounter [facility] SystemEvaluation note* Diagnosis Type 2 diabetes mellitus with diabetic neuropathic arthropathy, with long-term current use of insulin ([facility]) documented in this encounter [facility] SystemEvaluation note* Diagnosis Pure hypercholesterolemia [facility] Diagnosis Chronic systolic congestive heart failure ([facility]) [facility]* Diagnosis Sarcoidosis with granulomatous hepatitis documented in this encounter [facility]* Diagnosis Type 2 diabetes mellitus with diabetic neuropathic arthropathy, with long-term current use of insulin ([facility]) documented [facility] encounter [facility] SystemHistory general Narrative - Reported* Type Description Date Medical History DM1 Medical History HTN Medical History HYPERLIPEDEMIA Surgical History LEFT FOOT SURGERY WITH REMOVAL OF ALL FIVE TOES Surgical History heart cath with 5 stents placem ent Hospitalization History MRSA 2011 Hospitalization History [place] Other History general Narrative - Reported* Type Description Date Medical History DM1 Medical History HTN Medical History HYPERLIPEDEMIA Surgical History LEFT FOOT SURGERY WITH REMOVAL OF ALL FIVE TOES Surgical History heart cath with 5 stents placem ent Surgical History 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 hx. [facility] [employer] Other InstructionsNot on filedocumented in this encounter [facility] this [facility] filedocumented in this encounter [facility] filedocument[facility] in this encounter [facility] in [facility] Summary Purpose Family History No Family [...] yelitis of right tibia (M86.661) Referral Organization [facility] Referring Provider First Name [...] and content) DATE CREATED AUTHOR 05/12/2020 [facility] DATE CREATED AUTHOR AUTHOR'S ORGANIZ ATION 05/26/2021 [facility] DATE CREATED AUTHOR AUTHOR'S ORGANIZ ATION 08/23/2021 [facility] DATE CREATED AUTHOR AUTHOR'S ORGANIZ ATION 11/02/2021 [facility] DATE CREATED AUTHOR AUTHOR'S ORGANIZ ATION 04/08/2023 [facility] DATE CREATED AUTHOR AUTHOR'S ORGANIZ ATION [facility]/15/2023 [facility] DATE CREATED AUTHOR AUTHOR'S ORGANIZ ATION 06/29/2023 [facility] DATE CREATED AUTHOR AUTHOR'S ORGANIZ ATION 08/03/2023 [facility] DATE CREATED AUTHOR AUTHOR'S ORGANIZ ATION 08/03/2023 [facility] DATE CREATED AUTHOR AUTHOR'S ORGANIZ ATION 08/04/2023 [facility] REASON FOR VISIT (unrecogniz ed [...] DO Other Provider Active Bre Patel , CHILD DAY CARE TEACHER Other Provider Active Bin Carrera , DO Other Provider Active Patti Taylor MD Other Provider Active Kassandra Munoz , RN Other Provider Active Team Status: Inactive Member Role Status Dates Deon Braxton , DO Primary Care Provider Active Reddy Brandt , DO Referring Provider Active Darien Bailey , TOBACCO CLOTH RECLAIMER-C Attending Provider Activ e Team Status: Active [...] MD Other Provider Active Drea Galvin , CHILD DAY CARE TEACHER Other Provider Active Julia Segura , DO [...] MD Other Provider Active Mai Britton , TOBACCO CLOTH RECLAIMER-C Other Provider Active Christiano Evans MD Other Provider Active Isidro Antunez MD Other Provider Active Rosalind Coburn MD Other Provider Active Bill Osei MD Other Provider Active Lizbeth Mcbride , DO Other Provider Active Fabio Sanchez MD Other Provider Active Kwesilogan Muhammad , DO Other Provider Active Bre Jorge , CHILD DAY CARE TEACHER Other Provider Active Bin Carrera , DO [...] DO Admit Provider, Attending Provide r Active Business Editor Relationship Specialty Start Date End Date Deon Braxton, DO [address] [place] [address] PCP - General Internal Medicine 01/22/17 Business Editor Relationship Specialty Start Date End Date TashaDeon thompson DO [address] [place] [address] PCP - General Internal Medicine 01/22/17 Team Status: Inactive Member Role Status Dates Deon Braxton DO Primary Care Provider Active Sta rt: April 19, 2023 End: April 19, 2023 Salina Lee DPM MS Attending Provider Active Start: April 19, 2023 End: April 19, 2023 Business Editor Relationship Specialty Start Date End Date TashaDeon thompson DO [address] [place] [address] PCP - General Internal Medicine 01/22/17 Business Editor Relationship Specialty Start Date End Date TashaDeon thompson DO [address] [place] [address] PCP - General Internal Medicine 01/22/17 Business Editor Relationship Specialty Start Date End Date RichardDeon florian DO [address] [place] [address] (work) PCP - General Internal Medicine 01/22/17 [...] BE BASED ON THE PRIMARY CLINICAL RECORDS. [employer] [facility]. provides no warranty or guarantee of the accuracy or completeness of information in this document.
[2023-08-27 14:05] LABS: C Reactive Protein 27.06 mg/dL (<=0.50)
[2023-08-27] MEDS: HEPARIN SODIUM (PORCINE) 5,000 UNIT/ML VIAL 5000 UNIT SUBQ (14:29)
[2023-08-27] MEDS: ACETAMINOPHEN 325 MG TABLET 650 MG PO ×2 (14:30→18:33)
[2023-08-27 14:50] LABS: Lactate/Lactic Acid 1.4 mmol/L (0.4-2.0)
[2023-08-27 14:58] LABS: Glucometer 230 mg/dL (74-106)
[2023-08-27 15:01] LABS: Erythrocyte Sedimentation Rate 110 mm/hr (<=20)
[2023-08-27] MEDS: LINEZOLID IN DEXTROSE 5% 600 MG/300 ML PIGGYBACK 300 MG IV (16:11)
[2023-08-27] MEDS: ALBUTEROL SULFATE 2.5 MG/3 ML VIAL NEB IH ×2 (16:30→20:37)
[2023-08-27] MEDS: INSULIN ASPART 300 UNIT/3 ML PEN SUBQ ×2 (17:07→21:31)
[2023-08-27 19:03] LABS: Bilirubin Urine NEGATIVE (NEGATIVE); Blood Urine NEGATIVE (NEGATIVE); Clarity Urine CLEAR (CLEAR); Color Urine LT. YELLOW (YELLOW); Glucose Urine UA NEGATIVE (NEGATIVE); Ketones Urine TRACE mg/dL (NEGATIVE); Leukocyte Esterase Urine NEGATIVE (NEGATIVE); Nitrite Urine NEGATIVE (NEGATIVE); Protein Urine 30 mg/dL (NEG/TRACE); Specific Gravity Urine 1.015 (1.005-1.025); pH Urine 5.5 (5.0-9.0)
[2023-08-27 19:12] LABS: Urine Microscopic Indicated YES
[2023-08-27 19:23] LABS: Bacteria Urine TRACE #/HPF (NONE SEEN); RBC Urine NONE SEEN #/HPF (0-2); WBC Urine NONE SEEN #/HPF (NONE SEEN)
[2023-08-27 19:24] LABS: Cast Seen? NONE SEEN #/LPF (NONE SEEN); Crystals Seen? None Seen #/HPF (None Seen); Mucus Urine NONE SEEN (NONE SEEN); Squamous Epithelial Cell Urine RARE #/LPF (NONE/RARE); Urine Culture Indicated NO
[2023-08-27] MEDS: PIPERACILLIN SODIUM/TAZOBACTAM 3.375 GM in 0.9 % SODIUM CHLORIDE 50 ML IV (20:24)
[2023-08-27] MEDS: IBUPROFEN 600 MG TABLET PO (20:34)
[2023-08-27] MEDS: BUDESONIDE 0.5 MG/2 ML AMPULE NEB IH (20:37)
[2023-08-27] MEDS: BUMETANIDE 1 MG TABLET PO (21:30)
[2023-08-27] MEDS: CARVEDILOL 6.25 MG TABLET PO (21:30)
[2023-08-27] MEDS: INSULIN DETEMIR 300 UNIT/3 ML INSULN.PEN 40 UNIT SUBQ (21:48)
[2023-08-28] VITALS (22 sets, daily range): BP systolic 100–123; BP diastolic 52–67; PULSE 68–142; TEMP 36.4–37.2; O2SAT 91–97
[2023-08-28 00:41] LABS: A. calcoaceticus-baumannii Cpx NOT DETECTED (NOT DETECTE); Bacteroides fragilis NOT DETECTED (NOT DETECTE); Candida albicans NOT DETECTED (NOT DETECTE); Candida auris NOT DETECTED (NOT DETECTE); Candida glabrata NOT DETECTED (NOT DETECTE); Candida krusei NOT DETECTED (NOT DETECTE); Candida parapsilosis NOT DETECTED (NOT DETECTE); Candida tropicalis NOT DETECTED (NOT DETECTE); Cryptococcus neoformans/gattii NOT DETECTED (NOT DETECTE); Enterobacter cloacae complex NOT DETECTED (NOT DETECTE); Enterobacterales NOT DETECTED (NOT DETECTE); Enterococcus faecalis NOT DETECTED (NOT DETECTE); Enterococcus faecium NOT DETECTED (NOT DETECTE); Haemophilus influenzae NOT DETECTED (NOT DETECTE); Klebsiella aerogenes NOT DETECTED (NOT DETECTE); Klebsiella pneumoniae group NOT DETECTED (NOT DETECTE); Listeria monocytogenes NOT DETECTED (NOT DETECTE); Neisseria meningitidis NOT DETECTED (NOT DETECTE); Proteus spp. NOT DETECTED (NOT DETECTE); Pseudomonas aeruginosa NOT DETECTED (NOT DETECTE); Salmonella spp. NOT DETECTED (NOT DETECTE); Serratia marcescens NOT DETECTED (NOT DETECTE); Staphylococcus epidermidis NOT DETECTED (NOT DETECTE); Staphylococcus lugdunensis NOT DETECTED (NOT DETECTE); Stenotrophomonas maltophilia NOT DETECTED (NOT DETECTE); Streptococcus agalactiae NOT DETECTED (NOT DETECTE); Streptococcus pneumoniae NOT DETECTED (NOT DETECTE); Streptococcus pyogenes NOT DETECTED (NOT DETECTE); Streptococcus spp. NOT DETECTED (NOT DETECTE)
[2023-08-28 01:50] LABS: Source Blood; mecA/C and MREJ (MRSA) NOT DETECTED (NOT DETECTE)
[2023-08-28 01:51] LABS: Staphylococcus spp. DETECTED (NOT DETECTE)
[2023-08-28] MEDS: LINEZOLID IN DEXTROSE 5% 600 MG/300 ML PIGGYBACK 150 MG IV (02:08)
[2023-08-28] MEDS: PIPERACILLIN SODIUM/TAZOBACTAM 3.375 GM in 0.9 % SODIUM CHLORIDE 50 ML IV ×3 (04:12→20:55)
[2023-08-28] MEDS: HEPARIN SODIUM (PORCINE) 5,000 UNIT/ML VIAL 5000 UNIT SUBQ ×2 (04:12→17:14)
[2023-08-28] MEDS: ALBUTEROL SULFATE 2.5 MG/3 ML VIAL NEB IH ×4 (04:57→21:16)
[2023-08-28 05:15] LABS: Basophils Percent Auto 0.2 % (0.2-2.0); Eosinophils Absolute Auto 0.1 10^3/uL (0.0-0.7); Eosinophils Percent Auto 0.4 % (0.9-7.0); Hematocrit 34.9 % (42.0-54.0); Hemoglobin 11.5 g/dL (14.0-18.0); Immature Granulocytes Abs Auto 0.06 10^3/uL (0.00-0.03); Immature Granulocytes Pct Auto 0.5 % (0.0-0.5); Lymphocytes Absolute Auto 0.3 10^3/uL (1.2-3.8); Lymphocytes Percent Auto 2.2 % (20.5-60.0); Mean Corpuscular Hemoglobin 29.9 pg (25.9-34.0); Mean Corpuscular Volume 90.9 fL (80.0-94.0); Mean Platelet Volume 10.5 fL (9.5-13.5); Monocytes Absolute Auto 1.3 10^3/uL (0.3-0.8); Monocytes Percent Auto 9.8 % (1.7-12.0); Neutrophils Absolute Auto 11.3 10^3/uL (1.4-6.5); Neutrophils Percent Auto 86.9 % (43.0-75.0); Platelet Count 138 10^3/uL (150-450); Red Blood Count 3.84 10^6/uL (4.70-6.10); Red Cell Distribution Width 14.7 % (11.0-15.0)
[2023-08-28 05:29] LABS: Estimated Average Glucose 114 mg/dL; Glycohemoglobin A1C 5.6 % (4.5-6.2)
[2023-08-28 05:49] LABS: Alanine Aminotransferase 51 U/L (16-63); Albumin Globulin Ratio 0.5; Albumin Level 2.1 g/dL (3.4-5.0); Alkaline Phosphatase 81 U/L (46-116); Aspartate Amino Transferase 49 U/L (15-37); BUN Creatinine Ratio 27.5; Bilirubin Total 1.6 mg/dL (0.2-1.0); Calcium 7.8 mg/dL (8.5-10.1); Carbon Dioxide 25.7 mmol/L (21.0-32.0); Chloride 95 mmol/L (98-107); Estimated GFR (African America 35 (>=60); Estimated GFR (Non-African Ame 29 (>=60); Globulin 4.1 g/dL; Glucose 313 mg/dL (74-106); Potassium 3.7 mmol/L (3.5-5.1); Sodium 131 mmol/L (136-145); Total Protein 6.2 g/dL (6.4-8.2)
[2023-08-28] MEDS: INSULIN ASPART 300 UNIT/3 ML PEN SUBQ ×4 (07:34→21:05)
--- NOTE | 2023-08-28 07:57 | CM.NOTE ---
Important Message From Medicare discussed with pt, pt verbalizes understanding and signs paper. Original given to pt and copy placed on pt's chart.
[2023-08-28] MEDS: LOSARTAN POTASSIUM 25 MG TABLET PO (08:44)
[2023-08-28] MEDS: CANAGLIFLOZIN 100 MG TABLET 300 MG PO (08:44)
--- NOTE | 2023-08-28 08:44 | P.CN_ITS ---
Consult Note: HPI Data of Consult Patient: known to practice within the last 3 years Consult date: 08/28/23 Requesting Physician: Cara Barrera DO Primary Care Provider: DEON BRAXTON Consult Narrative Reason for consult: left ankle cellulitis Narrative: Patient is a six 7-year-old male with type 2 diabetes, peripheral neuropathy and history of right below-knee amputation. He is well-known to my practice and has not undergone treatment for multiple wounds and infection. On Sunday he was doing some work around the house carrying wood and noticed some redness on the inside of his left ankle. This progressively got worse over the weekend and presented to the emergency department yesterday and was found to have localized infection but also met sepsis protocol. He was admitted under the hospitalist given broad-spectrum antibiotics, Zyvox and Zosyn. At bedside today he is sitting upright in the chair and just finished his breakfast. He relates that he is feeling much better today and denies pain over his left ankle. He denies known injury or recent wound. His white blood cell count decreased from 15- 13,000 since admission, his inflammatory markers are very high and his vital signs currently are stable. However his temperature was 101.6F upon admission. Blood & urine cultures are pending cc:: CC: Cara Barrera DO [facility] Medical History Below-knee amputation of right lower extremity ?S88.111A - Complete traumatic amputation at level between knee and ankle, right lower leg, initial encounter (ICD-10) Arthritis ?M19.90 - Unspecified osteoarthritis, unspecified site (ICD-10) MRSA (methicillin resistant Staphylococcus aureus) ?A49.02 - Methicillin resistant Staphylococcus aureus infection, unspecified site (ICD-10) Peptic ulcer ?K27.9 - Peptic ulcer, site unspecified, unspecified as acute or chronic, without hemorrhage or perforation (ICD-10) Skin cancer ?C44.90 - Unspecified malignant neoplasm of skin, unspecified (ICD-10) Bronchitis ?J40 - Bronchitis, not specified as acute or chronic (ICD-10) Seizures ?R56.9 - Unspecified convulsions (ICD-10) Myocardial infarction (2015) ?I21.9 - Acute myocardial infarction, unspecified (ICD-10) Osteomyelitis ?M86.9 - Osteomyelitis, unspecified (ICD-10) Chronic ulcer of left ankle ?L97.329 - Non-pressure chronic ulcer of left ankle with unspecified severity (ICD-10) Diabetic neuropathy ?E11.40 - Type 2 diabetes mellitus with diabetic neuropathy, unspecified (ICD-10) Sleep apnea ?G47.30 - Sleep apnea, unspecified (ICD-10) Diabetic retinopathy ?E11.319 - Type 2 diabetes mellitus with unspecified diabetic retinopathy without macular edema (ICD-10) 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E78.5 - Hyperlipidemia, unspecified (ICD-10) Ischemic cardiomyopathy ?I25.5 - Ischemic cardiomyopathy (ICD-10) Apical mural thrombus ?I51.3 - Intracardiac thrombosis, not elsewhere classified (ICD-10) Cardiac defibrillator in place ?Z95.810 - Presence of automatic (implantable) cardiac defibrillator (ICD-10) Surgical History H/O foot surgery ?Z98.890 - Other specified postprocedural states (ICD-10) History of excision of lesion ?Z98.890 - Other specified postprocedural states (ICD-10) ?Z87.2 - Personal history of diseases of the skin and subcutaneous tissue (ICD-10) History of cardiac catheterization ?Z98.890 - Other specified postprocedural states (ICD-10) History of heart artery stent ?Z95.5 - Presence of coronary angioplasty implant and graft (ICD-10) History of cholecystectomy ?Z90.49 - Acquired absence of other specified parts of digestive tract (ICD- 10) History of arthroscopy of knee ?Z98.890 - Other specified postprocedural states (ICD-10) History of foot surgery ?Z98.890 - Other specified postprocedural states (ICD-10) H/O hand surgery ?Z98.890 - Other specified postprocedural states (ICD-10) History of colonoscopy ?Z98.890 - Other specified postprocedural states (ICD-10) History of esophagogastroduodenoscopy (EGD) ?Z98.890 - Other specified postprocedural states (ICD-10) History of ankle surgery ?Z98.890 - Other specified postprocedural states (ICD-10) Family History Mother Family history of CHF (congestive heart failure) Family history of diabetes mellitus Family history of hypertension Heart disease Father Family history of hypertension Social History Within the past year, how often did you have a drink containing alcohol: monthly or less Within the past year, how many standard drinks containing alcohol did you have on a typical day: 1 or 2 Within the past year, how often did you have six or more drinks on one occasion: never Total score: 0 Score interpretation: A score less than 4 is consistent with normal alcohol consumption. Smoking status: Never smoker Non-prescribed substance use: denies use Previous occupational history: retired Highest level of school completed/degree received: some college, no degree Are you now , , , , never or living with a partner: In a typical week, how many times do you talk on the telephone with family, friends, or neighbors: 3 or more times per week How often do you get together with friends or relatives: 3 or more times per week How often do you attend episcopalian or lutheran services: 4 or more times per year Do you belong to any clubs or organizations such as episcopalian groups unions, fraternal or athletic groups, or school groups: no Total score: 3 Score interpretation: A score of greater than or equal to 2 indicates the lowest level of social isolation. Little interest or pleasure in doing things: not at all Feeling down, depressed, or hopeless: not at all Feel stressed/tense/nervous/anxious/difficulty sleeping: not at all Do you think of yourself as: straight/heterosexual Gender Identity: male Meds Home Medications and Allergies Home Medications ?Medication ?Instructions ?Recorded ?Confirmed ?Type albuterol sulfate 90 mcg/actuation 2 inh inhalation Q6H PRN shortness 04/16/23 08/27/23 History aerosol inhaler (ProAir HFA) of breath or wheezing allopurinol 100 mg tablet 200 mg PO DAILY 04/16/23 08/27/23 History ascorbic acid (vitamin C) 500 mg 500 mg PO DAILY 04/16/23 08/27/23 History capsule aspirin 81 mg tablet,delayed 81 mg PO DAILY 04/16/23 08/27/23 History release (Adult Aspirin Regimen) atorvastatin 80 mg tablet 80 mg PO DAILY 04/16/23 08/27/23 History bumetanide 2 mg tablet 1 mg PO BID 04/16/23 08/27/23 History carvedilol 6.25 mg tablet 6.25 mg PO BID 04/16/23 08/27/23 History cholecalciferol (vitamin D3) 125 5,000 unit PO DAILY 04/16/23 08/27/23 History mcg (5,000 unit) capsule coQ10 (ubiquinol) 100 mg capsule 100 mg PO DAILY 04/16/23 08/27/23 History (Qunol Cory CoQ10) dapagliflozin propanediol 10 mg 10 mg PO DAILY 04/16/23 08/27/23 History tablet (Farxiga) fluticasone furoate 200 1 inh inhalation DAILY PRN 04/16/23 08/27/23 History mcg-vilanterol 25 mcg/dose increased sob inhalation powder (Breo Ellipta) losartan 25 mg tablet (Cozaar) 25 mg PO DAILY 04/16/23 08/27/23 History magnesium oxide 400 mg PO DAILY 04/16/23 08/27/23 History multivitamin (Daily Multi-Vitamin 1 tab PO DAILY 04/16/23 08/27/23 History tablet) nitroglycerin 0.4 mg sublingual 0.4 mg sublingual Q5M 04/16/23 08/27/23 History tablet (Nitrostat) prednisone 5 mg tablet 5 mg PO .COMPLEX 04/16/23 08/27/23 History spironolactone 25 mg tablet 25 mg PO DAILY 04/16/23 08/27/23 History duloxetine 30 mg capsule,delayed 30 mg PO DAILY 06/20/23 08/27/23 History release insulin glargine 100 unit/mL 40 unit subcut .qhs 06/20/23 08/27/23 History subcutaneous solution (Lantus U-100 Insulin) insulin lispro 100 unit/mL 15 unit subcut TIDWM 06/20/23 08/27/23 History subcutaneous half-unit pen amoxicillin 500 mg-potassium 1 tab PO BID 14 days #28 tabs 06/26/23 08/27/23 Rx clavulanate 125 mg tablet (Augmentin) tramadol 50 mg tablet 50 mg PO Q6H PRN pain 7 days #28 06/26/23 08/27/23 Rx tabs Allergies Allergy/AdvReac Type Severity Reaction Status Date / Time chlorpheniramine Allergy Hives Verified 08/27/23 10:44 dextromethorphan Allergy Hives Verified 08/27/23 10:44 doxycycline Allergy Verified 08/27/23 10:44 hydrocodone [From Tussionex] Allergy Hives Verified 08/27/23 10:44 levofloxacin Allergy Chest Pain Verified 08/27/23 10:44 Exam Narrative Exam Narrative: Small scab noted over the medial ankle with no active drainage. Erythema is localized and has slightly subsided judging by the skin marker that was placed upon admission. There is no fluctuance. No pain on palpation. No pain with range of motion of the ankle or hindfoot. Constitutional Vital Signs, click to edit/add: Last Vital Signs Temp 97.8 F 08/28/23 04:00 Pulse 76 08/28/23 08:00 Resp 18 08/28/23 04:57 BP 103/64 08/28/23 04:00 Pulse Ox 91 L 08/28/23 04:57 O2 Del Method Room Air 08/28/23 04:57 Results Labs Labs: Short CBC 08/27/23 08/28/23 Range/Units 10:55 04:43 WBC 15.1 H 13.0 H (4.0-11.0) 10^3/uL Hgb 13.3 L 11.5 L (14.0-18.0) g/dL Hct 40.4 L 34.9 L (42.0-54.0) % Plt Count 163 138 L (150-450) 10^3/uL BMP 08/27/23 08/28/23 10:55 04:43 Sodium 133 L 131 L Potassium 3.7 3.7 Chloride 96 L 95 L Carbon Dioxide 24.6 25.7 BUN 64.0 H 63.0 H Creatinine 2.22 H 2.29 H Glucose 230 H 313 H Calcium 9.1 7.8 L Liver Function 08/27/23 08/28/23 Range/Units 10:55 04:43 Total Bilirubin 1.6 H 1.6 H (0.2-1.0) mg/dL AST 73 H 49 H (15-37) U/L ALT 58 51 (16-63) U/L Alkaline Phosphatase 93 81 (46-116) U/L Albumin 2.8 L 2.1 L (3.4-5.0) g/dL Urine 08/27/23 Range/Units 17:25 Urine Color Lt. yellow (YELLOW) Urine Clarity Clear (CLEAR) Urine pH 5.5 (5.0-9.0) Ur Specific [place] 1.015 (1.005-1.025) Urine Protein 30 A (NEG/TRACE) mg/dL Urine Glucose (UA) Negative (NEGATIVE) mg/dL Assessment and Plan Assessment and Plan (1) Severe sepsis with acute organ dysfunction: (2) Cellulitis: Assessment and Plan: Continue broad-spectrum antibiotics for now Will closely monitor over the next 24 hours to determine if surgical intervention is necessary I have low suspicion for abscess given no fluctuance or pain on palpation however the patient is medically complicated and at high risk for amputation He also ate breakfast and is fluid overloaded at this time and does appear to be clinically improving therefore I recommend delaying surgical intervention until possibly tomorrow if needed Qualifiers: Laterality: left Site of cellulitis: extremity Site of cellulitis of extremity: lower extremity Qualified Code(s): L03.116 - Cellulitis of left lower limb (3) Acute kidney failure: Qualifiers: Acute renal failure type: unspecified Qualified Code(s): N17.9 - Acute kidney failure, unspecified (4) Diabetes: Qualifiers: Diabetes mellitus complication detail: with other skin complication Diabetes mellitus complication status: with skin complications Diabetes mellitus continuous churn buttermaker insulin use: with continuous churn buttermaker use Diabetes mellitus type: type 2 Qualified Code(s): E11.628 - Type 2 diabetes mellitus with other skin complications; Z79.4 - continuous churn buttermaker (current) use of insulin (5) Hypertension: Qualifiers: Hypertension type: primary hypertension Qualified Code(s): I10 - Essential (primary) hypertension (6) COPD (chronic obstructive pulmonary disease): Qualifiers: COPD type: unspecified COPD Qualified Code(s): J44.9 - Chronic obstructive pulmonary disease, unspecified (7) Chronic systolic (congestive) heart failure: (8) CAD (coronary artery disease): Qualifiers: [place] vs. transplanted heart: [place] heart (9) Stage 3a chronic kidney disease (CKD): Plan See above Weightbearing as tolerated for now Discussed case with Dr. Barrera Will follow closely and will decide tomorrow if he requires I&D
[2023-08-28] MEDS: CARVEDILOL 6.25 MG TABLET PO ×2 (08:48→21:00)
[2023-08-28] MEDS: BUMETANIDE 1 MG TABLET PO ×2 (08:48→20:57)
[2023-08-28] MEDS: MAGNESIUM OXIDE 400 MG TABLET PO (08:48)
[2023-08-28] MEDS: DULOXETINE HCL 30 MG CAPSULE.DR PO (08:49)
[2023-08-28] MEDS: ALLOPURINOL 100 MG TABLET 200 MG PO (08:49)
[2023-08-28] MEDS: ASPIRIN 81 MG TABLET.DR PO (08:49)
--- NOTE | 2023-08-28 09:03 | PM.PN ---
Progress Note: Subjective Subjective Interval history: Patient is resting comfortably in chair. He reports feeling better today. No pain in the ankle/foot. Redness has improved. Afebrile overnight. No swelling, shortness of breath, or chest pain. Exam Narrative Exam Narrative: General: Patient is alert, and oriented to person, place and time with normal affect, proper hygiene Skin: see MS exam Head: atraumatic, acephalic Heart: Normal rate and rhythm, no murmurs/rubs/gallops Lungs: no audible wheezes, crackles and normal breath sounds all lung ochoa Abdomen: Normal audible bowel sounds, no distension, No palpable masses, no organomegaly, no rebound/guarding/ or rigidity Musculoskeletal: right BKA, left lower ext shows: erythema over the medial malleolus, does not include toes or heel and erythema has receded from area of demarcation Neuro: CN II-X grossly intact Constitutional Vital Signs, click to edit/add: Last Vital Signs Temp 97.5 F L 08/28/23 08:00 Pulse 78 08/28/23 08:00 Resp 16 08/28/23 08:55 BP 111/55 08/28/23 08:48 Pulse Ox 97 08/28/23 08:00 O2 Del Method Room Air 08/28/23 08:00 Progress Note: Objective Labs Labs: Short CBC 08/27/23 08/28/23 Range/Units 10:55 04:43 WBC 15.1 H 13.0 H (4.0-11.0) 10^3/uL Hgb 13.3 L 11.5 L (14.0-18.0) g/dL Hct 40.4 L 34.9 L (42.0-54.0) % Plt Count 163 138 L (150-450) 10^3/uL BMP 08/27/23 08/28/23 10:55 04:43 Sodium 133 L 131 L Potassium 3.7 3.7 Chloride 96 L 95 L Carbon Dioxide 24.6 25.7 BUN 64.0 H 63.0 H Creatinine 2.22 H 2.29 H Glucose 230 H 313 H Calcium 9.1 7.8 L Liver Function 08/27/23 08/28/23 Range/Units 10:55 04:43 Total Bilirubin 1.6 H 1.6 H (0.2-1.0) mg/dL AST 73 H 49 H (15-37) U/L ALT 58 51 (16-63) U/L Alkaline Phosphatase 93 81 (46-116) U/L Albumin 2.8 L 2.1 L (3.4-5.0) g/dL Urine 08/27/23 Range/Units 17:25 Urine Color Lt. yellow (YELLOW) Urine Clarity Clear (CLEAR) Urine pH 5.5 (5.0-9.0) Ur Specific [place] 1.015 (1.005-1.025) Urine Protein 30 A (NEG/TRACE) mg/dL Urine Glucose (UA) Negative (NEGATIVE) mg/dL Progress Note: A&P Assessment and Plan (1) Severe sepsis with acute organ dysfunction: Assessment and Plan: Lac[place] 2.4 then 1.4, recheck, given fluids but did not receive full fluid bolus due to patient having heart failure. blood cultures on rapid showed Staph Aureus, previously had wound culture with MRSA, urine and wound culture pending. Leukocytosis at 15 down to 13, continue Zosyn and Linezolid (2) Cellulitis: Assessment and Plan: ESR, CRP; continue zosyn and linezolid, consult podiatry for any further recs and still watchful waiting, given patient's history of BKA, Hoping to salvage his left limb with IV antibiotic treatment. Qualifiers: Laterality: left Site of cellulitis: extremity Site of cellulitis of extremity: lower extremity Qualified Code(s): L03.116 - Cellulitis of left lower limb (3) Acute kidney failure: Assessment and Plan: secondary to #1, also with known CKD (Creatinine was 1.25 in may), gentle fluid hydration and renally dosing medications. avoiding Vancomycin Qualifiers: Acute renal failure type: unspecified Qualified Code(s): N17.9 - Acute kidney failure, unspecified (4) Diabetes: Assessment and Plan: continue SSI, restart long acting insulin. normal anion gap Qualifiers: Diabetes mellitus complication detail: with other skin complication Diabetes mellitus complication status: with skin complications Diabetes mellitus prison insulin use: with prison use Diabetes mellitus type: type 2 Qualified Code(s): E11.628 - Type 2 diabetes mellitus with other skin complications; Z79.4 - residential (current) use of insulin (5) Hypertension: Assessment and Plan: stable. continue home medications. Qualifiers: Hypertension type: primary hypertension Qualified Code(s): I10 - Essential (primary) hypertension (6) COPD (chronic obstructive pulmonary disease): Assessment and Plan: no acute exacerbation. continue inhalers Qualifiers: COPD type: unspecified COPD Qualified Code(s): J44.9 - Chronic obstructive pulmonary disease, unspecified (7) Chronic systolic (congestive) heart failure: Assessment and Plan: given so much fluids in ER,proBNP elevated 4678, no signs of fluid overload on exam, echo from june 2023, showed EF 30-35%; monitor daily weights, I&O's and fluid restriction of 1500mL (8) CAD (coronary artery disease): Assessment and Plan: continue home medications Qualifiers: [place] vs. transplanted heart: [place] heart (9) Stage 3a chronic kidney disease (CKD): Assessment and Plan: Creatinine was 1.25 in may Plan patient is a full code Heparin for Dvt prophlaxis
[2023-08-28] MEDS: BUDESONIDE 0.5 MG/2 ML AMPULE NEB IH ×2 (11:11→21:16)
--- NOTE | 2023-08-28 11:29 | CM.NOTE ---
Rounds made with Dr. Barrera, no discharge today. Will continue IV antibiotics. PT and OT will also evaluate pt for discharge planning.
[2023-08-28] MEDS: LINEZOLID IN DEXTROSE 5% 600 MG/300 ML PIGGYBACK 300 MG IV (15:30)
--- NOTE | 2023-08-28 16:04 | SWNOTE1 ---
SW reviewed therapy notes and at this time, pt has no discharge needs. SW has met with pt in past for IV anbx, but no plans of this at this time. Pt has DME at home that he needs. SW to follow as needed.
[2023-08-28] MEDS: ATORVASTATIN CALCIUM 40 MG TABLET 80 MG PO (20:57)
[2023-08-28] MEDS: INSULIN DETEMIR 300 UNIT/3 ML INSULN.PEN 40 UNIT SUBQ (21:05)
[2023-08-29] VITALS (26 sets, daily range): BP systolic 107–126; BP diastolic 56–68; PULSE 75–92; TEMP 36.8–37.1; O2SAT 94–96
[2023-08-29] MEDS: TRAMADOL HCL 50 MG TABLET PO ×2 (03:06→21:30)
[2023-08-29] MEDS: LINEZOLID IN DEXTROSE 5% 600 MG/300 ML PIGGYBACK 300 MG IV ×2 (03:06→15:49)
[2023-08-29] MEDS: PIPERACILLIN SODIUM/TAZOBACTAM 3.375 GM in 0.9 % SODIUM CHLORIDE 50 ML IV ×3 (04:15→19:33)
[2023-08-29] MEDS: HEPARIN SODIUM (PORCINE) 5,000 UNIT/ML VIAL 5000 UNIT SUBQ ×2 (04:16→16:01)
[2023-08-29] MEDS: ALBUTEROL SULFATE 2.5 MG/3 ML VIAL NEB IH ×4 (04:28→20:09)
[2023-08-29 04:58] LABS: Basophils Percent Auto 0.2 % (0.2-2.0); Eosinophils Absolute Auto 0.1 10^3/uL (0.0-0.7); Eosinophils Percent Auto 0.8 % (0.9-7.0); Hematocrit 32.3 % (42.0-54.0); Hemoglobin 10.7 g/dL (14.0-18.0); Immature Granulocytes Abs Auto 0.09 10^3/uL (0.00-0.03); Immature Granulocytes Pct Auto 0.6 % (0.0-0.5); Lymphocytes Absolute Auto 0.4 10^3/uL (1.2-3.8); Lymphocytes Percent Auto 2.5 % (20.5-60.0); Mean Corpuscular HGB Conc 33.1 g/dL (29.9-35.2); Mean Corpuscular Hemoglobin 29.4 pg (25.9-34.0); Mean Corpuscular Volume 88.7 fL (80.0-94.0); Mean Platelet Volume 10.5 fL (9.5-13.5); Monocytes Absolute Auto 1.2 10^3/uL (0.3-0.8); Monocytes Percent Auto 8.7 % (1.7-12.0); Neutrophils Absolute Auto 12.4 10^3/uL (1.4-6.5); Neutrophils Percent Auto 87.2 % (43.0-75.0); Platelet Count 160 10^3/uL (150-450); Red Blood Count 3.64 10^6/uL (4.70-6.10); Red Cell Distribution Width 14.3 % (11.0-15.0); White Blood Count 14.2 10^3/uL (4.0-11.0)
[2023-08-29 05:44] LABS: Alanine Aminotransferase 44 U/L (16-63); Albumin Globulin Ratio 0.5; Alkaline Phosphatase 78 U/L (46-116); Anion Gap 13.6; Aspartate Amino Transferase 38 U/L (15-37); BUN Creatinine Ratio 27.1; Bilirubin Total 0.8 mg/dL (0.2-1.0); Calcium 7.8 mg/dL (8.5-10.1); Carbon Dioxide 22.8 mmol/L (21.0-32.0); Chloride 96 mmol/L (98-107); Estimated GFR (African America 36 (>=60); Estimated GFR (Non-African Ame 30 (>=60); Glucose 261 mg/dL (74-106); Potassium 3.4 mmol/L (3.5-5.1); Sodium 129 mmol/L (136-145)
[2023-08-29] MEDS: INSULIN ASPART 300 UNIT/3 ML PEN SUBQ ×4 (08:10→21:30)
[2023-08-29] MEDS: DULOXETINE HCL 30 MG CAPSULE.DR PO (08:12)
[2023-08-29] MEDS: CANAGLIFLOZIN 100 MG TABLET 300 MG PO (08:12)
[2023-08-29] MEDS: BUMETANIDE 1 MG TABLET PO (08:12)
[2023-08-29] MEDS: LOSARTAN POTASSIUM 25 MG TABLET PO (08:12)
[2023-08-29] MEDS: ASPIRIN 81 MG TABLET.DR PO (08:12)
[2023-08-29] MEDS: MAGNESIUM OXIDE 400 MG TABLET PO (08:13)
[2023-08-29] MEDS: ALLOPURINOL 100 MG TABLET 200 MG PO (08:13)
[2023-08-29] MEDS: CARVEDILOL 6.25 MG TABLET PO ×2 (08:13→21:30)
--- NOTE | 2023-08-29 08:43 | PM.PN ---
Progress Note: Subjective Subjective Interval history: Patient is resting comfortably in bed. He reports feeling better today just tired. No pain in the ankle/foot. Redness has improved. Afebrile overnight. No swelling, shortness of breath, or chest pain. discussed his sodium level down to 129 and the need to go back on fluid restriction and with ProBNP up. patient voiced understanding. Exam Narrative Exam Narrative: General: Patient is alert, and oriented to person, place and time with normal affect, proper hygiene Skin: see MS exam Head: atraumatic, acephalic Heart: Normal rate and rhythm, no murmurs/rubs/gallops Lungs: no audible wheezes, crackles and normal breath sounds all lung ochoa Abdomen: Normal audible bowel sounds, no distension, No palpable masses, no organomegaly, no rebound/guarding/ or rigidity Musculoskeletal: right BKA, left lower ext shows: erythema over the medial malleolus, does not include toes or heel and erythema has receded from area of demarcation, no peripheral edema Neuro: CN II-X grossly intact Constitutional Vital Signs, click to edit/add: Last Vital Signs Temp 98.2 F 08/29/23 07:41 Pulse 83 08/29/23 07:55 Resp 18 08/29/23 07:41 BP 125/56 08/29/23 07:41 Pulse Ox 95 08/29/23 07:41 O2 Del Method Room Air 08/29/23 07:41 Progress Note: Objective Labs Labs: Short CBC 08/29/23 Range/Units 04:13 WBC 14.2 H (4.0-11.0) 10^3/uL Hgb 10.7 L (14.0-18.0) g/dL Hct 32.3 L (42.0-54.0) % Plt Count 160 (150-450) 10^3/uL BMP 08/29/23 04:13 Sodium 129 L Potassium 3.4 L Chloride 96 L Carbon Dioxide 22.8 BUN 60.0 H Creatinine 2.21 H Glucose 261 H Calcium 7.8 L Liver Function 08/29/23 Range/Units 04:13 Total Bilirubin 0.8 (0.2-1.0) mg/dL AST 38 H (15-37) U/L ALT 44 (16-63) U/L Alkaline Phosphatase 78 (46-116) U/L Albumin 2.0 L (3.4-5.0) g/dL Progress Note: A&P Assessment and Plan (1) Severe sepsis with acute organ dysfunction: Assessment and Plan: Lactate 2.4 then 1.4, blood cultures on rapid showed Staph Aureus, previously had wound culture with MRSA, urine and wound culture pending. Leukocytosis at 15 down to 13, now 14.2, continue Zosyn and Linezolid (2) Cellulitis: Assessment and Plan: ESR, CRP elevated; continue zosyn and linezolid, consulted podiatry for any further recs and still watchful waiting, given patient's history of BKA, Hoping to salvage his left limb with IV antibiotic treatment Qualifiers: Laterality: left Site of cellulitis: extremity Site of cellulitis of extremity: lower extremity Qualified Code(s): L03.116 - Cellulitis of left lower limb (3) Acute kidney failure: Assessment and Plan: secondary to #1, also with known CKD (Creatinine was 1.25 in may), gentle fluid hydration and renally dosing medications. avoiding Vancomycin Qualifiers: Acute renal failure type: unspecified Qualified Code(s): N17.9 - Acute kidney failure, unspecified (4) Hyponatremia: Assessment and Plan: will place on fluid restriction, I feel it's related to hypervolemia from acute chf, will stop PO bumex and place on 2mg IV BID today. (5) Acute on chronic clinical systolic heart failure: Assessment and Plan: proBNP elevated now 8000, no signs of fluid overload on exam, echo from june 2023, showed EF 30-35%; monitor daily weights, I&O's and fluid restriction of 1500mL, repeat echo limited today, chest X-ray today for pulmonary edema, start IV bumex (6) Diabetes: Assessment and Plan: continue SSI, restart long acting insulin. normal anion gap Qualifiers: Diabetes mellitus complication detail: with other skin complication Diabetes mellitus complication status: with skin complications Diabetes mellitus jail insulin use: with keno terminal operator use Diabetes mellitus type: type 2 Qualified Code(s): E11.628 - Type 2 diabetes mellitus with other skin complications; Z79.4 - intermediate card tender (current) use of insulin (7) Hypertension: Assessment and Plan: stable. continue home medications. Qualifiers: Hypertension type: primary hypertension Qualified Code(s): I10 - Essential (primary) hypertension (8) COPD (chronic obstructive pulmonary disease): Assessment and Plan: no acute exacerbation. continue inhalers Qualifiers: COPD type: unspecified COPD Qualified Code(s): J44.9 - Chronic obstructive pulmonary disease, unspecified (9) CAD (coronary artery disease): Assessment and Plan: continue home medications Qualifiers: [place] vs. transplanted heart: [place] heart (10) Stage 3a chronic kidney disease (CKD): Assessment and Plan: Creatinine was 1.25 in may Plan patient is a full code Heparin for Dvt prophlaxis due to worsening heart fsilure and hyponatremia and need for diuresis and IV antibiotics, patient will require 2-3 more days of necessary hospital care.
--- NOTE | 2023-08-29 08:47 | CA_ITS ---
Patient Name: ANAI PELAYO MR#: [id number] : 1955 Exam Date: 08/29/2023 Ordering Doctor: YOVANNY JAMES . ECHOCARDIOGRAM REPORT PROCEDURE: CA ECHO LIMITED INDICATIONS: elevated proBNP, sepsis, bacteremia COMPARISON: None. DESCRIPTION: Limited ECHOCARDIOGRAM Real-time transthoracic echocardiography with 2D and M-mode performed. QUALITY: Technical quality was good. LEFT VENTRICLE: Mild dilatation. Borderline left ventricular hypertrophy. LV EF: Global left ventricular systolic function is severely reduced; visually estimated ejection fraction is 20 to 25%. Diffuse hypokinesis. Abnormal septal motion; may be related to paced rhythm. LEFT ATRIUM: Mild dilatation. RIGHT ATRIUM: Moderate dilatation. RIGHT VENTRICLE: Mild dilatation. Right ventricular systolic function appears reduced. Pacer wire present. TRICUSPID VALVE: Normal mobility and thickness. MITRAL VALVE: Normal mobility and thickness. AORTIC VALVE: Normal trileaflet appearance. Normal leaflet mobility. AORTIC ROOT: Mildly dilated. Measuring 4.2cm. PULMONIC VALVE: Normal thickness and mobility. PERICARDIUM: No evidence of pericardial effusion. IVC: Moderate dilatation. Measuring 2.7cm with no collapse. CONCLUSION: 1. Global left ventricular systolic function is severely reduced; visually estimated ejection fraction is 20 to 25% 2. The right ventricle is mildly dilated with reduced systolic function 3. Biatrial enlargement 4. The aortic root is mildly dilated A limited echocardiogram was performed Adult Echocardiography Procedure Report Left Ventricle LVEDD (3.7 - 5.6 cm): 6.11 cm LVESD (2.2 - 4.0 cm): 4.81 cm LVIVS thickness (0.6 - 1.2 cm): 1.02 cm LVPW thickness (0.5 - 1.0 cm): 1.06 cm LVOT Diameter 2.55 cm Left Ventricular Ejection Fraction: 36.73 % Left Atrium LA Volume Index (2D A2C): 37.88 ml/m2 Left Atrium Systolic Dimension: 3.87 cm Mitral Valve Right Ventricle RV Internal Diastolic Dimension: 4.32 cm Aorta AO Root Diam: 4.18 cm Ascending Ao Diam: 3.41 cm Aortic Valve Tricuspid Valve Pulmonic Valve Right Atrium Right Atrium Systolic Pressure: 122.97 ml, 122.97 ml Dictated by: Reshma Rojas M.D. on 08/29/2023 at 14:16 Approved by: Reshma Rojas M.D. on 08/29/2023 at 14:39
--- NOTE | 2023-08-29 08:53 | XR_ITS ---
[address] [address] Patient Name: ANAI PELAYO MRN: [id number] date: 1955 Sex: M Assigned Patient Location: [place] Current Patient Location: [place] Accession/Order Number: [id number] Exam Date: 08/29/2023 09:35 Report Date: 08/29/2023 10:25 At the request of: YOVANNY JAMES Procedure: XR chest 2V EXAMINATION: XR chest 2V HISTORY: acute CHF COMPARISON: 04/16/2023 TECHNIQUE: PA and lateral FINDINGS: LUNGS: No significant pulmonary parenchymal abnormalities. VASCULATURE: No increased pulmonary vasculature. PLEURA: No pneumothorax. Blunting of the right lateral costophrenic angle CARDIAC: No cardiomegaly or cardiac silhouette abnormality. MEDIASTINUM: No visible mass or adenopathy. Left pacemaker/AICD BONES: Mild degenerative disc disease and spondylosis without visible acute abnormalities. OTHER: Negative. XR/XR chest 2V IMPRESSION: Tiny right pleural effusion Electronically authenticated by: ANAI SHERIFF Date: 08/29/2023 10:25
--- NOTE | 2023-08-29 10:12 | REH.PTDLY ---
Physical Therapy Daily Note PT Daily Note/Assess Start: 08/29/23 10:11 Freq: Status: Active Protocol: Document 08/29/23 10:11 REYES (Rec: 08/29/23 10:12 REYES Laptop) Visit Not Completed Visit Not Completed Due to: Pt refusing Other Reason Visit Not Completed Pt just got back from x-ray and has been up with nurse getting cleaned up for the day . Is now back in bed and is exhausted, says he has never felt so bad in his life and would really like to just rest right now. Physical Therapy Daily Note/Assessment Time In 10:08 Time Out 10:09
[2023-08-29] MEDS: BUDESONIDE 0.5 MG/2 ML AMPULE NEB IH ×2 (10:24→20:08)
[2023-08-29] MEDS: 0.9 % SODIUM CHLORIDE 250 ML 10 ML IV (11:21)
--- NOTE | 2023-08-29 11:23 | CM.NOTE ---
Rounds made with Dr. Barrera, no discharge for pt today. Continue IV antibiotics and monitor sodium.
[2023-08-29] MEDS: BUMETANIDE 1 MG/4 ML VIAL IVP (12:23)
--- NOTE | 2023-08-29 13:17 | PM.PN ---
Progress Note: Subjective Subjective Interval history: Patient seen and evaluated bedside this a.m. resting comfortably. States continues to feel better overall, denies pain in the left ankle. Erythema appears improved and within the margins previously marked. Denies any acute events overnight. Denies any other acute lower extremity complaints at this time denies any constitutional symptoms at time of visit. Exam Narrative Exam Narrative: DP and PT pulse strong palpable. CFT intact to TMA stump. Skin temperature warm and symmetric with mild focal increase to the medial left ankle. No fluctuance crepitus or bogginess. No open lesions. No palpatory tenderness is upon exam. Compartment soft compressible, no pain with calf or thigh compression. Constitutional Vital Signs, click to edit/add: Last Vital Signs Temp 98.5 F 08/29/23 11:57 Pulse 80 08/29/23 12:00 Resp 16 08/29/23 11:57 BP 117/68 08/29/23 11:57 Pulse Ox 96 08/29/23 11:57 O2 Del Method Room Air 08/29/23 11:57 Progress Note: Objective Labs Labs: Short CBC 08/29/23 Range/Units 04:13 WBC 14.2 H (4.0-11.0) 10^3/uL Hgb 10.7 L (14.0-18.0) g/dL Hct 32.3 L (42.0-54.0) % Plt Count 160 (150-450) 10^3/uL BMP 08/29/23 04:13 Sodium 129 L Potassium 3.4 L Chloride 96 L Carbon Dioxide 22.8 BUN 60.0 H Creatinine 2.21 H Glucose 261 H Calcium 7.8 L Liver Function 08/29/23 Range/Units 04:13 Total Bilirubin 0.8 (0.2-1.0) mg/dL AST 38 H (15-37) U/L ALT 44 (16-63) U/L Alkaline Phosphatase 78 (46-116) U/L Albumin 2.0 L (3.4-5.0) g/dL Progress Note: A&P Assessment and Plan (1) Severe sepsis with acute organ dysfunction: (2) Cellulitis: Qualifiers: Laterality: left Site of cellulitis: extremity Site of cellulitis of extremity: lower extremity Qualified Code(s): L03.116 - Cellulitis of left lower limb (3) Acute kidney failure: Qualifiers: Acute renal failure type: unspecified Qualified Code(s): N17.9 - Acute kidney failure, unspecified (4) Hyponatremia: (5) Acute on chronic clinical systolic heart failure: (6) Diabetes: Qualifiers: Diabetes mellitus type: type 2 Diabetes mellitus terminal operator insulin use: with terminal operator use Diabetes mellitus complication status: with skin complications Diabetes mellitus complication detail: with other skin complication Qualified Code(s): E11.628 - Type 2 diabetes mellitus with other skin complications; Z79.4 - retirement (current) use of insulin (7) Hypertension: Qualifiers: Hypertension type: primary hypertension Qualified Code(s): I10 - Essential (primary) hypertension (8) COPD (chronic obstructive pulmonary disease): Qualifiers: COPD type: unspecified COPD Qualified Code(s): J44.9 - Chronic obstructive pulmonary disease, unspecified (9) CAD (coronary artery disease): Qualifiers: [place] vs. transplanted heart: [place] heart (10) Stage 3a chronic kidney disease (CKD): Plan Patient examined evaluated. All findings discussed with patient all questions answered to patient's satisfaction. Pertinent labs and imaging reviewed. Leukocytosis at 15 this a.m., up from 13,000 yesterday. LLE swelling and erythema appear to continue to be improving. No signs of abscess, low suspicion for deep infection therefore we will hold off on surgical intervention at this point and recommend continued broad-spectrum IV antibiotics. He did also eat breakfast this a.m. Currently on fluid restriction secondary to fluid overload and BMP with hyponatremia. Will continue to monitor over the next 24 hours, if continued improvement may be eligible to discharge on oral antibiotics from a foot and ankle standpoint. Will continue to follow, rest per primary, please call with questions or concerns..
--- NOTE | 2023-08-29 15:10 | SWNOTE1 ---
SW met with pt to discuss dc needs. Pt lives at home with his . Pt voices he has all DME equipment he needs. Pt voices no discharge needs at this time. Pt stated he was not feeling well earlier, but is feeling better now. Unsure of dc date at this time. SW to follow as needed.
[2023-08-29 16:21] LABS: Anion Gap 13.3; BUN Creatinine Ratio 28.5; Calcium 7.9 mg/dL (8.5-10.1); Carbon Dioxide 23.1 mmol/L (21.0-32.0); Chloride 96 mmol/L (98-107); Estimated GFR (African America 39 (>=60); Estimated GFR (Non-African Ame 32 (>=60); Glucose 257 mg/dL (74-106); Potassium 3.4 mmol/L (3.5-5.1); Sodium 129 mmol/L (136-145)
[2023-08-29] MEDS: ATORVASTATIN CALCIUM 40 MG TABLET 80 MG PO (19:32)
[2023-08-29] MEDS: BUMETANIDE 1 MG/4 ML VIAL 2 MG IVP (21:29)
[2023-08-29] MEDS: INSULIN DETEMIR 300 UNIT/3 ML INSULN.PEN 40 UNIT SUBQ (21:31)
[2023-08-29] MEDS: POTASSIUM CHLORIDE 10 MEQ ER TABLET 40 MEQ PO (23:58)
[2023-08-30] VITALS (22 sets, daily range): BP systolic 113–143; BP diastolic 62–75; PULSE 70–85; TEMP 36.6–36.9; O2SAT 93–96
[2023-08-30] MEDS: ONDANSETRON PF 4 MG/2 ML VIAL IV (04:16)
[2023-08-30] MEDS: TRAMADOL HCL 50 MG TABLET PO ×2 (04:16→14:11)
[2023-08-30] MEDS: LINEZOLID IN DEXTROSE 5% 600 MG/300 ML PIGGYBACK 300 MG IV ×2 (04:17→16:23)
[2023-08-30] MEDS: ALBUTEROL SULFATE 2.5 MG/3 ML VIAL NEB IH ×4 (04:53→20:19)
[2023-08-30 04:55] LABS: Basophils Percent Auto 0.1 % (0.2-2.0); Eosinophils Absolute Auto 0.2 10^3/uL (0.0-0.7); Eosinophils Percent Auto 1.7 % (0.9-7.0); Hematocrit 34.9 % (42.0-54.0); Hemoglobin 11.3 g/dL (14.0-18.0); Immature Granulocytes Abs Auto 0.06 10^3/uL (0.00-0.03); Immature Granulocytes Pct Auto 0.4 % (0.0-0.5); Lymphocytes Absolute Auto 0.4 10^3/uL (1.2-3.8); Lymphocytes Percent Auto 2.6 % (20.5-60.0); Mean Corpuscular HGB Conc 32.4 g/dL (29.9-35.2); Mean Corpuscular Hemoglobin 28.8 pg (25.9-34.0); Mean Platelet Volume 10.3 fL (9.5-13.5); Monocytes Absolute Auto 1.3 10^3/uL (0.3-0.8); Monocytes Percent Auto 9.1 % (1.7-12.0); Neutrophils Absolute Auto 11.9 10^3/uL (1.4-6.5); Neutrophils Percent Auto 86.1 % (43.0-75.0); Platelet Count 183 10^3/uL (150-450); Red Blood Count 3.92 10^6/uL (4.70-6.10); Red Cell Distribution Width 14.6 % (11.0-15.0); White Blood Count 13.8 10^3/uL (4.0-11.0)
[2023-08-30 05:10] LABS: Alanine Aminotransferase 47 U/L (16-63); Albumin Globulin Ratio 0.5; Alkaline Phosphatase 151 U/L (46-116); Anion Gap 13.5; Aspartate Amino Transferase 40 U/L (15-37); BUN Creatinine Ratio 29.6; Bilirubin Total 0.8 mg/dL (0.2-1.0); Calcium 8.4 mg/dL (8.5-10.1); Carbon Dioxide 24.4 mmol/L (21.0-32.0); Chloride 98 mmol/L (98-107); Estimated GFR (African America 42 (>=60); Estimated GFR (Non-African Ame 34 (>=60); Globulin 4.1 g/dL; Glucose 193 mg/dL (74-106); Potassium 3.9 mmol/L (3.5-5.1); Sodium 132 mmol/L (136-145); Total Protein 6.1 g/dL (6.4-8.2)
[2023-08-30] MEDS: HEPARIN SODIUM (PORCINE) 5,000 UNIT/ML VIAL 5000 UNIT SUBQ ×2 (06:19→16:23)
[2023-08-30] MEDS: PIPERACILLIN SODIUM/TAZOBACTAM 3.375 GM in 0.9 % SODIUM CHLORIDE 50 ML IV ×3 (06:19→21:58)
[2023-08-30] MEDS: INSULIN ASPART 300 UNIT/3 ML PEN SUBQ ×4 (08:23→21:57)
[2023-08-30] MEDS: BUMETANIDE 1 MG/4 ML VIAL 2 MG IVP ×2 (08:29→21:56)
[2023-08-30] MEDS: CANAGLIFLOZIN 100 MG TABLET 300 MG PO (08:30)
[2023-08-30] MEDS: MAGNESIUM OXIDE 400 MG TABLET PO (08:30)
[2023-08-30] MEDS: LOSARTAN POTASSIUM 25 MG TABLET PO (08:30)
[2023-08-30] MEDS: CARVEDILOL 6.25 MG TABLET PO ×2 (08:30→21:56)
[2023-08-30] MEDS: ASPIRIN 81 MG TABLET.DR PO (08:30)
[2023-08-30] MEDS: ALLOPURINOL 100 MG TABLET 200 MG PO (08:30)
[2023-08-30] MEDS: DULOXETINE HCL 30 MG CAPSULE.DR PO (08:30)
--- NOTE | 2023-08-30 08:44 | P.PN_ITS ---
Progress Note: Subjective Subjective Interval history: Patient getting ready to work with PT this morning. States continues to feel better overall, denies pain in the left ankle. Erythema appears improved and within the margins previously marked. Denies any acute events overnight, no shortness of breath, no chest pain. Discussed sodium is improving and I increased fluid restriction to 2L. Patient required more aggressive diuresis yesterday. Cr improving 1.96. Exam Narrative Exam Narrative: General: Patient is alert, and oriented to person, place and time with normal affect, proper hygiene Skin: see MS exam Head: atraumatic, acephalic Heart: Normal rate and rhythm, no murmurs/rubs/gallops Lungs: no audible wheezes, crackles and normal breath sounds all lung ochoa Musculoskeletal: right BKA, left lower ext shows: erythema over the medial malleolus, does not include toes or heel and erythema continues to recede from the area of demarcation, no peripheral edema Neuro: CN II-X grossly intact Constitutional Vital Signs, click to edit/add: Last Vital Signs Temp 98.0 F 08/30/23 08:34 Pulse 78 08/30/23 08:34 Resp 18 08/30/23 08:34 BP 123/72 08/30/23 08:34 Pulse Ox 93 L 08/30/23 08:34 O2 Del Method Room Air 08/30/23 08:34 Progress Note: Objective Labs Labs: Short CBC 08/30/23 Range/Units 04:10 WBC 13.8 H (4.0-11.0) 10^3/uL Hgb 11.3 L (14.0-18.0) g/dL Hct 34.9 L (42.0-54.0) % Plt Count 183 (150-450) 10^3/uL BMP 08/29/23 08/30/23 16:02 04:10 Sodium 129 L 132 L Potassium 3.4 L 3.9 Chloride 96 L 98 Carbon Dioxide 23.1 24.4 BUN 59.0 H 58.0 H Creatinine 2.07 H 1.96 H Glucose 257 H 193 H Calcium 7.9 L 8.4 L Liver Function 08/30/23 Range/Units 04:10 Total Bilirubin 0.8 (0.2-1.0) mg/dL AST 40 H (15-37) U/L ALT 47 (16-63) U/L Alkaline Phosphatase 151 H (46-116) U/L Albumin 2.0 L (3.4-5.0) g/dL Progress Note: A&P Assessment and Plan (1) Severe sepsis with acute organ dysfunction: Assessment and Plan: blood cultures on rapid showed Staph Aureus, previously had wound culture with MRSA, urine and wound culture pending. Leukocytosis at 15 down to 13.8, continue Zosyn and Linezolid until final culture results. (2) Cellulitis: Assessment and Plan: ESR, CRP elevated; continue zosyn and linezolid, consulted podiatry for further recs: still agree with IV antibiotic treatment only to help salvage left limb. Qualifiers: Laterality: left Site of cellulitis: extremity Site of cellulitis of extremity: lower extremity Qualified Code(s): L03.116 - Cellulitis of left lower limb (3) Acute kidney failure: Assessment and Plan: secondary to #1, also with known CKD (Creatinine was 1.25 in may), renally dosing medications, Cr. improving Qualifiers: Acute renal failure type: unspecified Qualified Code(s): N17.9 - Acute kidney failure, unspecified (4) Hyponatremia: Assessment and Plan: related to hypervolemia from acute chf, will stop PO bumex on 2mg IV BID today which helped, lift fluid restriction to 2L daily. sodium was 132. (5) Acute on chronic clinical systolic heart failure: Assessment and Plan: proBNP elevated 8000, no signs of fluid overload on exam, echo from june 2023, showed EF 30-35%; monitor daily weights, I&O's and fluid restriction of 2000mL, repeat echo limited showed worsening EF of 20-25% , chest X-ray showed small pulmonary edema on the right, IV bumex helping, one more day and will start back to PO tomorrow. Will get Cards consult today due to change in EF and worsening heart failure picture. (6) Diabetes: Assessment and Plan: continue SSI, continue long acting insulin Qualifiers: Diabetes mellitus complication detail: with other skin complication Diabetes mellitus complication status: with skin complications Diabetes mellitus skilled nursing insulin use: with termite treater helper use Diabetes mellitus type: type 2 Qualified Code(s): E11.628 - Type 2 diabetes mellitus with other skin complications; Z79.4 - terminal block assembler (current) use of insulin (7) Hypertension: Assessment and Plan: stable. continue home medications. Qualifiers: Hypertension type: primary hypertension Qualified Code(s): I10 - Essential (primary) hypertension (8) COPD (chronic obstructive pulmonary disease): Assessment and Plan: no acute exacerbation. continue inhalers Qualifiers: COPD type: unspecified COPD Qualified Code(s): J44.9 - Chronic obstructive pulmonary disease, unspecified (9) CAD (coronary artery disease): Assessment and Plan: continue home medications Qualifiers: [place] vs. transplanted heart: [place] heart (10) Stage 3a chronic kidney disease (CKD): Assessment and Plan: Creatinine was 1.25 in may Plan patient is a full code Heparin for Dvt prophlaxis
--- NOTE | 2023-08-30 10:12 | REH.PTDLY ---
Physical Therapy Daily Note PT Daily Note/Assess Start: 08/29/23 10:11 Freq: Status: Active Protocol: Document 08/30/23 10:04 REYES (Rec: 08/30/23 10:11 REYES [id number]) Physical Therapy Daily Note/Assessment Time In 09:35 Time Out 09:50 Subjective Feeling better compared to yesterday. Agreeable to therapy Therapeutic Exercise Minutes (minutes) 3 Therapeutic Exercise Units 0 Therapeutic Exercise Treatment Instructed in L LE LAQ and Sd LE marching 10x ea for leg strength. Therapeutic Activity Minutes (minutes) 11 Therapeutic Activity Units 1 Therapeutic Activity Comments Min A with supine to sit transfers. Sit to stand transfers with bed slightly elevated CGA. Pt begins to ambulate 3 steps with RW, but has mild LOB and sits back down. Pt then donned L shoe and this helps pt to become steadier. Gait training with RW CGA 150 feet with cues at times as pt's R shoe scuffs ground causing imbalance. Sit to stand transfers performed a total of 3x. Pt takes short seated rest break bedside then ambulates to chair 10 feet to sit. Total Therapy Minutes 14 Total Physical Therapy Units 1 Daily Note Summary Improved gait distance today with RW, mild fatigue noted. Recommend RW use at this time for balance purposes as pt is mildly unsteady at times. Pt reports it felt good to get up and walk.
--- NOTE | 2023-08-30 10:41 | CM.NOTE ---
Rounds made with Dr. Barrera, no discharge for pt today.
--- NOTE | 2023-08-30 10:49 | SWNOTE1 ---
Pt used walker today with PT. Pt did voice yesterday to SW that he does have a walk at home if needed.
[2023-08-30] MEDS: BUDESONIDE 0.5 MG/2 ML AMPULE NEB IH ×2 (11:36→20:19)
--- NOTE | 2023-08-30 12:23 | PM.PN ---
Progress Note: Subjective Subjective Interval history: Patient seen and evaluated at bedside this a.m., resting comfortably in bedside chair. States continues to feel better overall, denies pain in the left medial ankle however is complaining of pain more posteriorly today.. Erythema appears relatively unchanged compared to yesterday and within the margins previously marked. Denies any acute events overnight, no shortness of breath, no chest pain. Exam Narrative Exam Narrative: DP and PT pulse strongly palpable. CFT intact to TMA stump. Skin temperature warm and symmetric with mild focal increase to the medial left ankle. No fluctuance crepitus or bogginess. No open lesions. Palpatory tenderness post goal along the Achilles peroneal tendon course.. Compartment soft compressible, no pain with calf or thigh compression. Constitutional Vital Signs, click to edit/add: Last Vital Signs Temp 98.0 F 08/30/23 08:34 Pulse 72 08/30/23 11:38 Resp 18 08/30/23 08:34 BP 123/72 08/30/23 08:34 Pulse Ox 96 08/30/23 11:38 O2 Del Method Room Air 08/30/23 11:38 Progress Note: Objective Labs Labs: Short CBC 08/30/23 Range/Units 04:10 WBC 13.8 H (4.0-11.0) 10^3/uL Hgb 11.3 L (14.0-18.0) g/dL Hct 34.9 L (42.0-54.0) % Plt Count 183 (150-450) 10^3/uL BMP 08/29/23 08/30/23 16:02 04:10 Sodium 129 L 132 L Potassium 3.4 L 3.9 Chloride 96 L 98 Carbon Dioxide 23.1 24.4 BUN 59.0 H 58.0 H Creatinine 2.07 H 1.96 H Glucose 257 H 193 H Calcium 7.9 L 8.4 L Liver Function 08/30/23 Range/Units 04:10 Total Bilirubin 0.8 (0.2-1.0) mg/dL AST 40 H (15-37) U/L ALT 47 (16-63) U/L Alkaline Phosphatase 151 H (46-116) U/L Albumin 2.0 L (3.4-5.0) g/dL Progress Note: A&P Assessment and Plan (1) Severe sepsis with acute organ dysfunction: (2) Cellulitis: Qualifiers: Laterality: left Site of cellulitis: extremity Site of cellulitis of extremity: lower extremity Qualified Code(s): L03.116 - Cellulitis of left lower limb (3) Acute kidney failure: Qualifiers: Acute renal failure type: unspecified Qualified Code(s): N17.9 - Acute kidney failure, unspecified (4) Hyponatremia: (5) Acute on chronic clinical systolic heart failure: (6) Diabetes: Qualifiers: Diabetes mellitus type: type 2 Diabetes mellitus custodial insulin use: with custodial use Diabetes mellitus complication status: with skin complications Diabetes mellitus complication detail: with other skin complication Qualified Code(s): E11.628 - Type 2 diabetes mellitus with other skin complications; Z79.4 - terminal 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 (current) use of insulin (7) Hypertension: Qualifiers: Hypertension type: primary hypertension Qualified Code(s): I10 - Essential (primary) hypertension (8) COPD (chronic obstructive pulmonary disease): Qualifiers: COPD type: unspecified COPD Qualified Code(s): J44.9 - Chronic obstructive pulmonary disease, unspecified (9) CAD (coronary artery disease): Qualifiers: [place] vs. transplanted heart: [place] heart (10) Stage 3a chronic kidney disease (CKD): Plan Patient examined evaluated. All findings discussed with patient all questions answered to patient's satisfaction. Pertinent labs and imaging reviewed. Leukocytosis at 13,000 today. ESR and CRP remain elevated, hyponatremia improving. Creatinine downtrending. LLE swelling and erythema appear relatively unchanged compared to yesterday.. Although there is no clinical signs of abscess, his erythema is relatively unchanged and slightly pain in the more posterior aspect of his ankle today, recommended and ordered a CT of the left ankle without contrast with total ankle protocol secondary to ROSALINO and defer MRI given pacemaker. Currently on fluid restriction secondary to fluid overload and BMP with hyponatremia, improving, cardiology on consult to see patient tomorrow.. Will follow once CT scans been obtained. Rest per primary, please call with questions or concerns..
[2023-08-30] MEDS: ACETAMINOPHEN 325 MG TABLET 650 MG PO (14:10)
[2023-08-30] MEDS: 0.9 % SODIUM CHLORIDE 250 ML 10 ML IV (14:11)
[2023-08-30] MEDS: ATORVASTATIN CALCIUM 40 MG TABLET 80 MG PO (21:56)
[2023-08-30] MEDS: INSULIN DETEMIR 300 UNIT/3 ML INSULN.PEN 40 UNIT SUBQ (21:57)
[2023-08-31] VITALS (18 sets, daily range): BP systolic 108–148; BP diastolic 63–78; PULSE 63–84; TEMP 36.4–36.8; O2SAT 93–98
[2023-08-31] MEDS: ONDANSETRON PF 4 MG/2 ML VIAL IV (01:39)
[2023-08-31] MEDS: TRAMADOL HCL 50 MG TABLET PO (01:39)
[2023-08-31] MEDS: LINEZOLID IN DEXTROSE 5% 600 MG/300 ML PIGGYBACK IV (03:28)
[2023-08-31] MEDS: HEPARIN SODIUM (PORCINE) 5,000 UNIT/ML VIAL 5000 UNIT SUBQ ×2 (04:34→16:37)
[2023-08-31] MEDS: PIPERACILLIN SODIUM/TAZOBACTAM 3.375 GM in 0.9 % SODIUM CHLORIDE 50 ML IV (04:40)
[2023-08-31] MEDS: ALBUTEROL SULFATE 2.5 MG/3 ML VIAL NEB IH ×4 (04:50→21:37)
[2023-08-31 05:49] LABS: Hematocrit 35.9 % (42.0-54.0); Hemoglobin 11.6 g/dL (14.0-18.0); Mean Corpuscular HGB Conc 32.3 g/dL (29.9-35.2); Mean Corpuscular Hemoglobin 28.9 pg (25.9-34.0); Mean Corpuscular Volume 89.5 fL (80.0-94.0); Mean Platelet Volume 10.1 fL (9.5-13.5); Platelet Count 223 10^3/uL (150-450); Red Blood Count 4.01 10^6/uL (4.70-6.10); Red Cell Distribution Width 14.6 % (11.0-15.0); White Blood Count 9.7 10^3/uL (4.0-11.0)
[2023-08-31 06:03] LABS: Alanine Aminotransferase 48 U/L (16-63); Albumin Globulin Ratio 0.4; Alkaline Phosphatase 86 U/L (46-116); Anion Gap 12.3; Aspartate Amino Transferase 31 U/L (15-37); BUN Creatinine Ratio 24.9; Bilirubin Total 0.7 mg/dL (0.2-1.0); Calcium 8.6 mg/dL (8.5-10.1); Carbon Dioxide 28.2 mmol/L (21.0-32.0); Chloride 99 mmol/L (98-107); Estimated GFR (African America 41 (>=60); Estimated GFR (Non-African Ame 34 (>=60); Globulin 4.6 g/dL; Glucose 155 mg/dL (74-106); Potassium 3.5 mmol/L (3.5-5.1); Sodium 136 mmol/L (136-145); Total Protein 6.6 g/dL (6.4-8.2)
[2023-08-31 06:37] LABS: Atypical Lymphocytes Abs Man 0.09; Eosinophils Absolute Manual 0.29 10^3/uL (0.00-0.70); Lymphocytes Absolute Manual 0.58 10^3/uL (1.20-3.80); Monocytes Absolute Manual 0.29 10^3/uL (0.30-0.80); Segmented Neut Absolute Manual 8.43 10^3/uL (1.4-6.5)
--- NOTE | 2023-08-31 07:08 | CT_ITS ---
The [address] [address] Patient Name: ANAI PELAYO MRN: [id number] date: 1955 Sex: M Assigned Patient Location: [place] Current Patient Location: [place] Accession/Order Number: [id number] Exam Date: 08/31/2023 06:55 Report Date: 08/31/2023 16:30 At the request of: TREVA ZHAO Procedure: CT ankle LT wo con EXAM: CT ankle LT wo con HISTORY: Left ankle pain COMPARISON: Left ankle x-rays 08/27/2023. TECHNIQUE: Multiple axial unenhanced CT images of the left ankle was performed from above the knee to the midfoot. 2-D coronal and sagittal reformations were similar for review. Dose reduction techniques were achieved by using automated exposure control and/or adjustment of mA and/or kV according to patient size and/or use of iterative reconstruction technique. FINDINGS: Small knee joint effusion. [id number] joint space narrowing and marginal spur at the medial tibiofemoral compartment. Meniscal calcifications compatible with CPPD. No sizable popliteal cyst. The tibia and fibula appear preserved. Chronic appearing linear calcification partially fused with the anterior aspect of the lateral malleolus compatible with remote injury. No acute fracture is seen. The tibiotalar alignment appears preserved. No talar dome is chondral lesion is identified. Patient is status post forefoot resection. Surgical margins remain sharp. No bony erosive/destructive changes identified. Mild to moderate marginal spur is noted particularly at the navicular cuneiform articulations, and fourth and fifth TMT joints. There is soft tissue swelling and edema along the ankle noted. No soft tissue gas. Evaluation of the soft tissues is limited without IV contrast. The peroneus brevis tendon is attenuated at the level of the lateral talus suggesting at least a partial-thickness tear. Arterial vascular calcifications are noted. There is scattered fatty atrophy of the lower leg muscles. Achilles tendon is intact with [id number] tendinosis. CT/CT ankle LT wo con IMPRESSION: 1. Mild soft tissue swelling of the ankle. No acute fracture. 2. There is a small partially fused ossicle along the anterior margin lateral malleolus compatible with remote injury. 3. Prior forefoot amputation. No CT signs of osteomyelitis. No soft tissue gas. 4. 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 Small knee joint effusion. 5. There is suggestion of at least partial tear of the peroneus brevis tendon at the lateral malleolus. Electronically authenticated by: TERRY BALTAZAR Date: 08/31/2023 16:30
--- NOTE | 2023-08-31 08:59 | P.CN_ITS ---
<Statement entered by PAMELA DUMONT - 09/05/23 06:42> This documentation has been reviewed and approved. Consult Note: HPI Data of Consult Patient: new to practice Consult date: 08/31/23 Requesting Physician: Cara Barrera DO Primary Care Provider: DEON BRAXTON Consult Narrative Reason for consult: Acute on chronic systolic heart failure [facility] 2 Narrative: 67 yo male presented to ED for increased redness, swelling and pain of LLE that was worsening over 4-5 days. Admitted increased weakness, and nausea. Denied fever, chills. He is known to [facility] cardiology for complicated past medical including poorly controlled DM2, CAD s/p ME and stent placement in 2014, remote history of left forefoot amputation, right BKA in 2021 with recent admission 2 months ago for stump abscess, Chronic systolic heart failure with ICD, COPD, GERD, CKD 3. Assessed at bedside, pt is currently up sitting in a chair. Denied chest pain, SOB, Orthopnea, palpitations, fever, chills. Admits occasional pain/twinges of Lt lower leg. Podiatry MD at bedside currently for cellulitis and most likely DFU. Currently pt is being treated with zosyn and zyvox for cellulitis. Noted ROSALINO on CKD with current regime of Bumex 2 mg IV bid for fluid overload and edema. Pt states that his weight is currently stable and fluid status is about back to my normal. States leg swelling is greatly improved since admit. Home meds of farxiga and aldactone have been stopped and with his h/o DFU, Rt BKA and LT TMA most likely he is not a good candidate for SGLT2-i with recurrent infections. cc:: CC: Cara Barrera DO Review of Systems ROS Status of ROS 10 or more systems reviewed and unremark able except as noted in history and below [facility] Medical History Below-knee amputation of right lower extremity ?S88.111A - Complete traumatic amputation at level between knee and ankle, right lower leg, initial encounter (ICD-10) Arthritis ?M19.90 - Unspecified osteoarthritis, unspecified site (ICD-10) MRSA (methicillin resistant Staphylococcus aureus) ?A49.02 - Methicillin resistant Staphylococcus aureus infection, unspecified site (ICD-10) Peptic ulcer ?K27.9 - Peptic ulcer, site unspecified, unspecified as acute or chronic, without hemorrhage or perforation (ICD-10) Skin cancer ?C44.90 - Unspecified malignant neoplasm of skin, unspecified (ICD-10) Bronchitis ?J40 - Bronchitis, not specified as acute or chronic (ICD-10) Seizures ?R56.9 - Unspecified convulsions (ICD-10) Myocardial infarction (2015) ?I21.9 - Acute myocardial infarction, unspecified (ICD-10) Osteomyelitis ?M86.9 - Osteomyelitis, unspecified (ICD-10) Chronic ulcer of left ankle ?L97.329 - Non-pressure chronic ulcer of left ankle with unspecified severity (ICD-10) Diabetic neuropathy ?E11.40 - Type 2 diabetes mellitus with diabetic neuropathy, unspecified (ICD-10) Sleep apnea ?G47.30 - Sleep apnea, unspecified (ICD-10) Diabetic retinopathy ?E11.319 - Type 2 diabetes mellitus with unspecified diabetic retinopathy without macular edema (ICD-10) 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E78.5 - Hyperlipidemia, unspecified (ICD-10) Ischemic cardiomyopathy ?I25.5 - Ischemic cardiomyopathy (ICD-10) Apical mural thrombus ?I51.3 - Intracardiac thrombosis, not elsewhere classified (ICD-10) Cardiac defibrillator in place ?Z95.810 - Presence of automatic (implantable) cardiac defibrillator (ICD-10) Surgical History H/O foot surgery ?Z98.890 - Other specified postprocedural states (ICD-10) History of excision of lesion ?Z98.890 - Other specified postprocedural states (ICD-10) ?Z87.2 - Personal history of diseases of the skin and subcutaneous tissue (ICD-10) History of cardiac catheterization ?Z98.890 - Other specified postprocedural states (ICD-10) History of heart artery stent ?Z95.5 - Presence of coronary angioplasty implant and graft (ICD-10) History of cholecystectomy ?Z90.49 - Acquired absence of other specified parts of digestive tract (ICD- 10) History of arthroscopy of knee ?Z98.890 - Other specified postprocedural states (ICD-10) History of foot surgery ?Z98.890 - Other specified postprocedural states (ICD-10) H/O hand surgery ?Z98.890 - Other specified postprocedural states (ICD-10) History of colonoscopy ?Z98.890 - Other specified postprocedural states (ICD-10) History of esophagogastroduodenoscopy (EGD) ?Z98.890 - Other specified postprocedural states (ICD-10) History of ankle surgery ?Z98.890 - Other specified postprocedural states (ICD-10) Family History Mother Family history of CHF (congestive heart failure) Family history of diabetes mellitus Family history of hypertension Heart disease Father Family history of hypertension Social History Within the past year, how often did you have a drink containing alcohol: monthly or less Within the past year, how many standard drinks containing alcohol did you have on a typical day: 1 or 2 Within the past year, how often did you have six or more drinks on one occasion: never Total score: 0 Score interpretation: A score less than 4 is consistent with normal alcohol consumption. Smoking status: Never smoker Non-prescribed substance use: denies use Previous occupational history: retired Highest level of school completed/degree received: some college, no degree Are you now , , , , never or living with a partner: In a typical week, how many times do you talk on the telephone with family, friends, or neighbors: 3 or more times per week How often do you get together with friends or relatives: 3 or more times per week How often do you attend voodoo or sabianism services: 4 or more times per year Do you belong to any clubs or organizations such as voodoo groups unions, fraternal or athletic groups, or school groups: no Total score: 3 Score interpretation: A score of greater than or equal to 2 indicates the lowest level of social isolation. Little interest or pleasure in doing things: not at all Feeling down, depressed, or hopeless: not at all Feel stressed/tense/nervous/anxious/difficulty sleeping: not at all Do you think of yourself as: straight/heterosexual Gender Identity: male Meds Home Medications and Allergies Home Medications ?Medication ?Instructions ?Recorded ?Confirmed ?Type albuterol sulfate 90 mcg/actuation 2 inh inhalation Q6H PRN shortness 04/16/23 08/27/23 History aerosol inhaler (ProAir HFA) of breath or wheezing allopurinol 100 mg tablet 200 mg PO DAILY 04/16/23 08/27/23 History ascorbic acid (vitamin C) 500 mg 500 mg PO DAILY 04/16/23 08/27/23 History capsule aspirin 81 mg tablet,delayed 81 mg PO DAILY 04/16/23 08/27/23 History release (Adult Aspirin Regimen) atorvastatin 80 mg tablet 80 mg PO DAILY 04/16/23 08/27/23 History bumetanide 2 mg tablet 1 mg PO BID 04/16/23 08/27/23 History carvedilol 6.25 mg tablet 6.25 mg PO BID 04/16/23 08/27/23 History cholecalciferol (vitamin D3) 125 5,000 unit PO DAILY 04/16/23 08/27/23 History mcg (5,000 unit) capsule coQ10 (ubiquinol) 100 mg capsule 100 mg PO DAILY 04/16/23 08/27/23 History (Qunol Cory CoQ10) dapagliflozin propanediol 10 mg 10 mg PO DAILY 04/16/23 08/27/23 History tablet (Farxiga) fluticasone furoate 200 1 inh inhalation DAILY PRN 04/16/23 08/27/23 History mcg-vilanterol 25 mcg/dose increased sob inhalation powder (Breo Ellipta) losartan 25 mg tablet (Cozaar) 25 mg PO DAILY 04/16/23 08/27/23 History magnesium oxide 400 mg PO DAILY 04/16/23 08/27/23 History multivitamin (Daily Multi-Vitamin 1 tab PO DAILY 04/16/23 08/27/23 History tablet) nitroglycerin 0.4 mg sublingual 0.4 mg sublingual Q5M 04/16/23 08/27/23 History tablet (Nitrostat) prednisone 5 mg tablet 5 mg PO .COMPLEX 04/16/23 08/27/23 History spironolactone 25 mg tablet 25 mg PO DAILY 04/16/23 08/27/23 History duloxetine 30 mg capsule,delayed 30 mg PO DAILY 06/20/23 08/27/23 History release insulin glargine 100 unit/mL 40 unit subcut .qhs 06/20/23 08/27/23 History subcutaneous solution (Lantus U-100 Insulin) insulin lispro 100 unit/mL 15 unit subcut TIDWM 06/20/23 08/27/23 History subcutaneous half-unit pen Allergies Allergy/AdvReac Type Severity Reaction Status Date / Time chlorpheniramine Allergy Hives Verified 08/27/23 10:44 dextromethorphan Allergy Hives Verified 08/27/23 10:44 doxycycline Allergy Verified 08/27/23 10:44 hydrocodone [From Tussionex] Allergy Hives Verified 08/27/23 10:44 levofloxacin Allergy Chest Pain Verified 08/27/23 10:44 Exam Constitutional Vital Signs, click to edit/add: Last Vital Signs Temp 97.8 F 08/31/23 08:00 Pulse 70 08/31/23 08:00 Resp 16 08/31/23 08:00 BP 125/71 08/31/23 08:00 Pulse Ox 96 08/31/23 08:00 O2 Del Method Room Air 08/31/23 08:00 Common normals: no apparent distress, average body habitus and oriented x3 Other: Chronically ill Respiratory Common normals: normal respiratory effort, no retractions, no use of accessory muscles and clear to auscultation bilaterally Cardio Common normals: no JVD, regular rate, regular rhythm, S1 normal heart sound and S2 normal heart sound GI Common normals: Normal to inspection, nondistended, normoactive bowel sounds present, soft to palpation and non-tender Extremity Other: Rt BKA, LT TMA- multiple eschar ulceration noted on LLE and + erythema, noted 2+ pitting edema LLE Neuro Common normals: oriented x3, CN's II-XII intact bilaterally and moves all extremities Psych Common normals: mental status grossly normal, thought process normal, cooperative, affect normal and speech normal Results Labs Labs: Short CBC 08/31/23 Range/Units 04:43 WBC 9.7 (4.0-11.0) 10^3/uL Hgb 11.6 L (14.0-18.0) g/dL Hct 35.9 L (42.0-54.0) % Plt Count 223 (150-450) 10^3/uL BMP 08/31/23 04:43 Sodium 136 Potassium 3.5 Chloride 99 Carbon Dioxide 28.2 BUN 50.0 H Creatinine 2.01 H Glucose 155 H Calcium 8.6 Liver Function 08/31/23 Range/Units 04:43 Total Bilirubin 0.7 (0.2-1.0) mg/dL AST 31 (15-37) U/L ALT 48 (16-63) U/L Alkaline Phosphatase 86 (46-116) U/L Albumin 2.0 L (3.4-5.0) g/dL 08/28/23 04:43 Hemoglobin A1c 5.6 - 4.5-6.2?% 06/20/23 10:05 Troponin I High Sens 29.2 08/27/23 10:55 C-Reactive Protein 27.06?H <=0.50?mg/dL 06/25/23 09:50 C-React Prot High Sens 9.28?H 08/29/23 04:13 NT-Pro-B Natriuret Pep 8368.0?H* <=900.0?pg/mL ECG Attestation: ?I have reviewed the pertinent ECG results. Interpretation: Interpretive Statements SINUS RHYTHM RIGHT BUNDLE BRANCH BLOCK LEFT ANTERIOR FASCICULAR BLOCK POSSIBLE ANTERIOR MYOCARDIAL INFARCTION OF INDETERMINATE AGE Chronic, nonspecific ST/T wave changes when compared to tracing from 07/02/20 Electronically Signed On 06-21-2023 6:50:14 EDT by ARACELI MULLINS Imaging echocardiogram: Attestation: I have reviewed the pertinent imaging results. My impression: 08/29/23 QUALITY: Technical quality was good. LEFT VENTRICLE: Mild dilatation. Borderline left ventricular hypertrophy. LV EF: Global left ventricular systolic function is severely reduced; visually estimated ejection fraction is 20 to 25%. Diffuse hypokinesis. Abnormal septal motion; may be related to paced rhythm. LEFT ATRIUM: Mild dilatation. RIGHT ATRIUM: Moderate dilatation. RIGHT VENTRICLE: Mild dilatation. Right ventricular systolic function appears reduced. Pacer wire present. TRICUSPID VALVE: Normal mobility and thickness. MITRAL VALVE: Normal mobility and thickness. AORTIC VALVE: Normal trileaflet appearance. Normal leaflet mobility. AORTIC ROOT: Mildly dilated. Measuring 4.2cm. PULMONIC VALVE: Normal thickness and mobility. PERICARDIUM: No evidence of pericardial effusion. IVC: Moderate dilatation. Measuring 2.7cm with no collapse. CONCLUSION: 1. Global left ventricular systolic function is severely reduced; visually estimated ejection fraction is 20 to 25% 2. The right ventricle is mildly dilated with reduced systolic function 3. Biatrial enlargement 4. The aortic root is mildly dilated A limited echocardiogram was performed Chest x-ray: Attestation: I have reviewed the pertinent imaging results. Radiologist's impression: 08/29/23 FINDINGS: LUNGS: No significant pulmonary parenchymal abnormalities. VASCULATURE: No increased pulmonary vasculature. PLEURA: No pneumothorax. Blunting of the right lateral costophrenic angle CARDIAC: No cardiomegaly or cardiac silhouette abnormality. MEDIASTINUM: No visible mass or adenopathy. Left pacemaker/AICD BONES: Mild degenerative disc disease and spondylosis without visible acute abnormalities. OTHER: Negative. XR/XR chest 2V IMPRESSION: Tiny right pleural effusion Electronically authenticated by: ANAI SHERIFF Date: 08/29/2023 10:25 Assessment and Plan Assessment and Plan (1) Acute on chronic clinical systolic heart failure: Assessment and Plan: -[facility] 2-3 -Currently pt is close to euvolemia per assessment, I recommend 1 more day of IV bumex and then return to home dose of Bumex 2 mg po bid. Currently pt is net negative 1.3 L since admit, edema improved and no acute exacerbation of HFrEF or distress noted today. - Continue GDMT - ASA, lipitor, coreg, hold losartan, monitor renal function and if HTN needs better management without losartan recommend to start hydralazine 25 mg tid and isordil 10 mg tid, continue to hold aldactone until renal function improves. I would not resume farxiga in light of recurrent infections. -Daily weights, strict I&O, fluid restriction 1.5 L/day, low sodium diet, monitor renal function and electrolytes, please maintain K+>4 and Mag> 2. - Can f/u with typical concrete sculptor at [facility] within 1 week of DC, and further optimization of GDMT as outpt. -Extended D/W pt regarding strict fluid restriction 1.5-2L, heart healthy diet and low sodium diet, and daily weights- since he reports that he drink too much fluids and does not weigh himself at all at home. (2) Severe sepsis with acute organ dysfunction: Assessment and Plan: Currently resolved and managed by primary service (3) Cellulitis: Assessment and Plan: managed by primary service, podiatry consulted Qualifiers: Laterality: left Site of cellulitis: extremity Site of cellulitis of extremity: lower extremity Qualified Code(s): L03.116 - Cellulitis of left lower limb (4) 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: Assessment and Plan: HTN currently well controlled - but holding losartan r/t worsening renal function. If needed please start hydralazine and isordil until renal function improves. He may benefit from a neprhology consult as outpt. (5) Acute kidney failure: Assessment and Plan: monitor renal function and electrolytes, hold losartan, recommend 1 more day of IV bumex and then return to home dose. In light improved edema of LLE, CXR without vascular congestion or acute process, although his pro BNP was elevated. Qualifiers: Acute renal failure type: unspecified Qualified Code(s): N17.9 - Acute kidney failure, unspecified (6) CAD (coronary artery disease): Assessment and Plan: Currently stable without any concerning symptoms Continue GDMT- ASA, lipitor, coreg Qualifiers: [place] vs. 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 use: with residential use Diabetes mellitus complication status: with skin complications Diabetes mellitus complication detail: with other skin complication Qualified Code(s): E11.628 - Type 2 diabetes mellitus with other skin complications; Z79.4 - shelter (current) use of insulin (9) COPD (chronic obstructive pulmonary disease): Qualifiers: COPD type: unspecified COPD Qualified Code(s): J44.9 - Chronic obstructive pulmonary disease, unspecified (10) Stage 3a chronic kidney disease (CKD): Plan as above Thank you for the consult Please call for any further concerns Emily Garcia [facility] Cardiology
--- NOTE | 2023-08-31 09:06 | XR_ITS ---
The [address] [address] Patient Name: ANAI PELAYO MRN: [id number] date: 1955 Sex: M Assigned Patient Location: [place] Current Patient Location: [place] Accession/Order Number: [id number] Exam Date: 08/31/2023 09:15 Report Date: 08/31/2023 11:11 At the request of: SHAIKH JUSTEN Procedure: XR chest 1V EXAMINATION: XR chest 1V HISTORY: Congestive heart failure COMPARISON: XR chest 06/20/2023, 08/29/2023 FINDINGS: LUNGS: Underexpanded lungs with mild bibasilar opacities partially obscuring the diaphragm margins. Mild haziness within mid and upper left hemithorax. VASCULATURE: No increased pulmonary vasculature. PLEURA: No pneumothorax, effusion, or pleural thickening. CARDIAC: No cardiomegaly or cardiac silhouette abnormality. MEDIASTINUM: No visible mass or adenopathy. BONES: No fracture or visible bone lesion. OTHER: Stable cardiac pacer. XR/XR chest 1V IMPRESSION: 1. New mild bibasilar infiltrates versus atelectasis, left greater than right. 2. Suspect mild infiltrates or atelectasis within the mid and upper left lung region. 3. Findings have increased compared to 2 days ago. Electronically authenticated by: ARLEN ALEXANDRA Date: 08/31/2023 11:11
[2023-08-31] MEDS: MAGNESIUM OXIDE 400 MG TABLET PO (10:03)
[2023-08-31] MEDS: DULOXETINE HCL 30 MG CAPSULE.DR PO (10:03)
[2023-08-31] MEDS: ALLOPURINOL 100 MG TABLET 200 MG PO (10:03)
[2023-08-31] MEDS: CARVEDILOL 6.25 MG TABLET PO ×2 (10:03→20:58)
[2023-08-31] MEDS: ASPIRIN 81 MG TABLET.DR PO (10:03)
[2023-08-31] MEDS: CEFAZOLIN SODIUM/DEXTROSE,ISO 2 GM/50 ML PIGGYBACK IV ×2 (11:07→18:26)
[2023-08-31] MEDS: BUDESONIDE 0.5 MG/2 ML AMPULE NEB IH ×2 (11:10→21:37)
--- NOTE | 2023-08-31 11:10 | PT.DAILY ---
Physical Therapy Daily Note PT Daily Note/Assess Start: 08/29/23 10:11 Freq: Status: Active Protocol: Document 08/31/23 11:08 [email or web address] (Rec: 08/31/23 11:10 MARICHUY [id number]) Physical Therapy Daily Note/Assessment Time In/Time Out Time In 10:50 Time Out 11:07 Pain In Pain N/A Pain Out Pain N/A Subjective Subjective Pt sitting in BS chair upon arrival. Agrees to PT. Reports Service Director said to keep is L foot elevated while in sitting. Therapeutic Activity Time Therapeutic Activity Minutes (minutes) 12 Therapeutic Activity Units 1 Therapeutic Activity Treatment Chair Transfer Ability Contact Guard Assist Therapeutic Activity Comments Pt able to stephanie his L shoe IND with increased time needed. Sit>stand to RW CGA. Pt amb 180' with RW, CGA for safety. No foot scuffs today but occ needs vc to keep RW close to him as he tends to lean forward and walker gets out in front of him a little too far . Pt returned to BS chair upon completion. Some SOB/wheezing . Spo2 94% on room air. Chair alarm is activated and call light within reach. Total Physical Therapy Time Total Therapy Minutes 12 Total Physical Therapy Units 1 Summary Daily Note Summary IMproved gait endurance.
--- NOTE | 2023-08-31 12:10 | CM.NOTE ---
Rounds made with Dr. Bone, no discharge today.
--- NOTE | 2023-08-31 12:24 | PM.IMPN1 ---
Progress Note: A&P Assessment and Plan (1) MSSA bacteremia: Assessment and Plan: Blood cultures are positive for MSSA. Patient switched to IV cefazolin. Repeat blood cultures ordered. No evidence of endocarditis on recent echocardiogram but official report is pending (2) Acute on chronic clinical systolic heart failure: Assessment and Plan: Still volume overload. Continue with IV Bumex 2 mg every 12. Monitor intake/output. Monitor electrolytes while on Bumex closely. (3) Severe sepsis with acute organ dysfunction: Assessment and Plan: Acute on chronic systolic heart failure. Secondary to MSSA. Switch IV antibiotic to IV cefazolin. Repeat blood cultures ordered. No evidence of endocarditis on echo (4) Cellulitis: Assessment and Plan: Left foot cellulitis. Patient denies pain and seems to think it is better from yesterday. CT of left foot performed today-awaiting radiology report. Appreciate podiatry's recommendation and input. IV antibiotics switched to IV cefazolin based on blood cultures. 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 (6) Acute kidney failure: Assessment and Plan: Likely cardiorenal because of acute congestive heart failure. Continue with Bumex. Monitor renal function closely while on diuretic. Qualifiers: Acute renal failure type: unspecified Qualified Code(s): N17.9 - Acute kidney failure, unspecified (7) CAD (coronary artery disease): Assessment and Plan: Stable. No evidence of active cardiac ischemia. Monitor. Qualifiers: Coronary Disease-Associated Artery/Lesion type: [place] artery [place] vs. transplanted heart: [place] heart Associated angina: without angina Qualified Code(s): I25.10 - Atherosclerotic heart disease of [place] coronary artery without angina pectoris (8) Hyponatremia: Assessment and Plan: Hypervolemic hyponatremia. Resolved with IV diuresis. (9) Diabetes: Assessment and Plan: Patient should not be on Farxiga because of history of recurrent diabetic foot ulcer and history of amputation. Continue with insulin basal/bolus. Monitor. 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 No wheezing. Monitor. Continue with albuterol as needed along with Breo. Qualifiers: COPD type: unspecified COPD Qualified Code(s): J44.9 - Chronic obstructive pulmonary disease, unspecified (11) Stage 3a chronic kidney disease (CKD): Assessment and Plan: Monitor renal function while on diuretic. Patient currently has ROSALINO. (12) Below-knee amputation of right lower extremity: Assessment and Plan: Fall precautions. Patient has a prosthetic in place. Qualifiers: Encounter type: subsequent encounter Qualified Code(s): S88.111D - Complete traumatic amputation at level between knee and ankle, right lower leg, subsequent encounter (13) Hyperlipemia: Assessment and Plan: Continue with Lipitor Qualifiers: Hyperlipidemia type: unspecified Qualified Code(s): E78.5 - Hyperlipidemia, unspecified Plan Needs IV diuresis for acute on chronic systolic heart failure. Need to follow-up repeat blood culture to make sure bacteremia is resolved. Follow-up CT to rule out abscess but have low suspicion of it. Needs close monitoring of electrolytes/renal function while on diuretic. Internal Medicine - PN: Subj Subjective Interval history: Patient seen and evaluated at bedside this a.m., resting comfortably in bedside chair. States continues to feel better overall, denies pain in the left medial ankle however is complaining of pain more posteriorly today.. Erythema appears relatively unchanged compared to yesterday and within the margins previously marked. Denies any acute events overnight, no shortness of breath, no chest pain. Exam Constitutional Vital Signs, click to edit/add: Last Vital Signs Temp 97.8 F 08/31/23 08:00 Pulse 68 08/31/23 12:00 Resp 16 08/31/23 08:00 BP 125/71 08/31/23 08:00 Pulse Ox 96 08/31/23 08:00 O2 Del Method Room Air 08/31/23 11:11 Internal Medicine - PN: Obj Da Labs Labs: Laboratory Results - last 24 hr 08/31/23 08/31/23 04:43 10:05 WBC 9.7 RBC 4.01 L Hgb 11.6 L Hct 35.9 L MCV 89.5 MCH 28.9 MCHC 32.3 RDW 14.6 Plt Count 223 MPV 10.1 Seg Neuts % (Manual) 87.0 Band Neutrophils % 0.0 Lymphocytes % (Manual) 6.0 L Atypical Lymphs % (Man) 1.0 Monocytes % (Manual) 3.0 Eosinophils % (Manual) 3.0 Basophils % (Manual) 0.0 L Neutrophils # (Manual) 8.43 H Band Neutrophils # 0.0 Lymphocytes # (Manual) 0.58 L Abs Atypical Lymphs Man 0.09 Monocytes # (Manual) 0.29 L Eosinophils # (Manual) 0.29 Basophils # (Manual) 0.00 Sodium 136 Potassium 3.5 Chloride 99 Carbon Dioxide 28.2 Anion Gap 12.3 BUN 50.0 H Creatinine 2.01 H Est GFR ( Amer) 41 L Est GFR (Non-Af Amer) 34 L BUN/Creatinine Ratio 24.9 Glucose 155 H Calcium 8.6 Total Bilirubin 0.7 AST 31 ALT 48 Alkaline Phosphatase 86 NT-Pro-B Natriuret Pep 6017.0 H* Total Protein 6.6 Albumin 2.0 L Globulin 4.6 Albumin/Globulin Ratio 0.4
--- NOTE | 2023-08-31 12:28 | PM.PN ---
Progress Note: Subjective Subjective Interval history: Patient seen and evaluated at bedside this a.m., resting comfortably in bedside chair. States continues to feel better overall, Still admits to tenderness Posterior ankle/Achilles region today. Erythema appears relatively unchanged compared to yesterday and within the margins previously marked. Denies any acute events overnight, no shortness of breath, no chest pain. Exam Narrative Exam Narrative: DP and PT pulse strongly palpable. CFT intact to TMA stump. Skin temperature warm and symmetric with mild focal increase to the medial left ankle. No fluctuance crepitus or bogginess. No open lesions. Palpatory tenderness post goal along the Achilles peroneal tendon course.. Compartment soft compressible, no pain with calf or thigh compression. Constitutional Vital Signs, click to edit/add: Last Vital Signs Temp 97.8 F 08/31/23 08:00 Pulse 68 08/31/23 12:00 Resp 16 08/31/23 08:00 BP 125/71 08/31/23 08:00 Pulse Ox 96 08/31/23 08:00 O2 Del Method Room Air 08/31/23 11:11 Progress Note: Objective Labs Labs: Short CBC 08/31/23 Range/Units 04:43 WBC 9.7 (4.0-11.0) 10^3/uL Hgb 11.6 L (14.0-18.0) g/dL Hct 35.9 L (42.0-54.0) % Plt Count 223 (150-450) 10^3/uL BMP 08/31/23 04:43 Sodium 136 Potassium 3.5 Chloride 99 Carbon Dioxide 28.2 BUN 50.0 H Creatinine 2.01 H Glucose 155 H Calcium 8.6 Liver Function 08/31/23 Range/Units 04:43 Total Bilirubin 0.7 (0.2-1.0) mg/dL AST 31 (15-37) U/L ALT 48 (16-63) U/L Alkaline Phosphatase 86 (46-116) U/L Albumin 2.0 L (3.4-5.0) g/dL Progress Note: A&P Assessment and Plan (1) Acute on chronic clinical systolic heart failure: (2) Severe sepsis with acute organ dysfunction: (3) Cellulitis: Qualifiers: Laterality: left Site of cellulitis: extremity Site of cellulitis of extremity: lower extremity Qualified Code(s): L03.116 - Cellulitis of left lower limb (4) 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 Diabetes mellitus complication status: with skin complications Diabetes mellitus complication detail: with other skin complication Qualified Code(s): E11.628 - Type 2 diabetes mellitus with other skin complications; Z79.4 - half-way (current) use of insulin (9) COPD (chronic obstructive pulmonary disease): Qualifiers: COPD type: unspecified COPD Qualified Code(s): J44.9 - Chronic obstructive pulmonary disease, unspecified (10) Stage 3a chronic kidney disease (CKD): (11) MSSA bacteremia: (12) Below-knee amputation of right lower extremity: (13) Hyperlipemia: (14) GERD (gastroesophageal reflux disease): (15) Hypertension: Qualifiers: Hypertension type: primary hypertension Qualified Code(s): I10 - Essential (primary) hypertension Plan Patient examined evaluated. All findings discussed with patient all questions answered to patient's satisfaction. Pertinent labs and imaging reviewed. Leukocytosis Downtrending at 9000 today. LLE swelling Appears improved, erythema relatively unchanged compared to yesterday. Left ankle CT was reviewed, radiologist report not yet available, however I do not appreciate any acute findings or signs of occult abscess. Initial blood cultures did result in pansensitive MSSA bacteremia, was switched to IV cefazolin Currently on fluid restriction secondary to fluid overload, CHF exacerbation and BMP with hyponatremia, improving, cardiology on consult. No plans for acute surgical intervention at this time. Rest per primary, please call with questions or concerns.
[2023-08-31] MEDS: INSULIN ASPART 300 UNIT/3 ML PEN SUBQ ×2 (12:38→21:01)
[2023-08-31] MEDS: BUMETANIDE 1 MG/4 ML VIAL 2 MG IVP (12:39)
[2023-08-31] MEDS: 0.9 % SODIUM CHLORIDE 250 ML 10 ML IV (18:25)
[2023-08-31] MEDS: ATORVASTATIN CALCIUM 40 MG TABLET 80 MG PO (20:58)
[2023-08-31] MEDS: INSULIN DETEMIR 300 UNIT/3 ML INSULN.PEN 40 UNIT SUBQ (21:00)
[2023-09-01] VITALS (9 sets, daily range): BP systolic 130–150; BP diastolic 64–70; PULSE 73–76; TEMP 36.6–36.7; O2SAT 93–95
[2023-09-01] MEDS: BUMETANIDE 1 MG/4 ML VIAL 2 MG IVP (01:18)
[2023-09-01] MEDS: CEFAZOLIN SODIUM/DEXTROSE,ISO 2 GM/50 ML PIGGYBACK IV ×2 (01:19→09:01)
[2023-09-01] MEDS: HEPARIN SODIUM (PORCINE) 5,000 UNIT/ML VIAL 5000 UNIT SUBQ (04:49)
[2023-09-01 04:54] LABS: Basophils Percent Auto 0.2 % (0.2-2.0); Eosinophils Absolute Auto 0.3 10^3/uL (0.0-0.7); Eosinophils Percent Auto 3.1 % (0.9-7.0); Hematocrit 37.1 % (42.0-54.0); Hemoglobin 12.3 g/dL (14.0-18.0); Immature Granulocytes Abs Auto 0.14 10^3/uL (0.00-0.03); Immature Granulocytes Pct Auto 1.5 % (0.0-0.5); Lymphocytes Absolute Auto 0.5 10^3/uL (1.2-3.8); Lymphocytes Percent Auto 5.3 % (20.5-60.0); Mean Corpuscular HGB Conc 33.2 g/dL (29.9-35.2); Mean Corpuscular Hemoglobin 29.2 pg (25.9-34.0); Mean Corpuscular Volume 88.1 fL (80.0-94.0); Mean Platelet Volume 9.5 fL (9.5-13.5); Monocytes Percent Auto 10.2 % (1.7-12.0); Neutrophils Absolute Auto 7.7 10^3/uL (1.4-6.5); Neutrophils Percent Auto 79.7 % (43.0-75.0); Platelet Count 266 10^3/uL (150-450); Red Blood Count 4.21 10^6/uL (4.70-6.10); Red Cell Distribution Width 14.6 % (11.0-15.0); White Blood Count 9.7 10^3/uL (4.0-11.0)
[2023-09-01] MEDS: ALBUTEROL SULFATE 2.5 MG/3 ML VIAL NEB IH (05:10)
[2023-09-01 05:13] LABS: Alanine Aminotransferase 34 U/L (16-63); Albumin Globulin Ratio 0.4; Alkaline Phosphatase 82 U/L (46-116); Anion Gap 9.8; Aspartate Amino Transferase 29 U/L (15-37); BUN Creatinine Ratio 23.6; Bilirubin Total 0.5 mg/dL (0.2-1.0); Calcium 8.6 mg/dL (8.5-10.1); Carbon Dioxide 30.6 mmol/L (21.0-32.0); Chloride 98 mmol/L (98-107); Estimated GFR (African America 53 (>=60); Estimated GFR (Non-African Ame 43 (>=60); Globulin 4.5 g/dL; Glucose 108 mg/dL (74-106); Potassium 3.4 mmol/L (3.5-5.1); Sodium 135 mmol/L (136-145); Total Protein 6.5 g/dL (6.4-8.2)
[2023-09-01] MEDS: ASPIRIN 81 MG TABLET.DR PO (08:20)
[2023-09-01] MEDS: ALLOPURINOL 100 MG TABLET 200 MG PO (08:20)
[2023-09-01] MEDS: MAGNESIUM OXIDE 400 MG TABLET PO (08:20)
[2023-09-01] MEDS: CARVEDILOL 6.25 MG TABLET PO (08:20)
[2023-09-01] MEDS: DULOXETINE HCL 30 MG CAPSULE.DR PO (08:20)
[2023-09-01] MEDS: POTASSIUM CHLORIDE 10 MEQ ER TABLET 40 MEQ PO (09:35)
--- NOTE | 2023-09-01 10:34 | PM.DS1 ---
DS: Providers Provider Date of admission: 08/27/23 13:30 Primary care physician: DEON BRAXTON Admitting clinician: Cara Barrera Attending physician on admission: Cara Barrera Consults: 08/27/23 13:22 Occupational Therapy Eval and Treat Routine Reason for consultation: weakness Has provider been notified: No Physical Therapy Eval and Treat Routine Reason for consultation: weakness Has provider been notified: No 08/27/23 13:27 Consult to Podiatry Routine Consulting Provider: Heraclio Hernandez Reason for consultation: ankle cellulitis Has provider been notified: No 08/30/23 10:25 Consult to Cardiology Routine Reason for consultation: acute on chronic HF with worsening EF Has provider been notified: No Attending physician on discharge: Shaikh Lizandro Discharging clinician: Shaikh Lizandro Anticipated date of discharge: 09/01/23 DS: Diagnosis Discharge Diagnosis (1) Acute on chronic clinical systolic heart failure: Assessment and plan: Euvolemic on exam today. Resume oral bumex. Follow up with cardiology. (2) Severe sepsis with acute organ dysfunction: Assessment and plan: Resolved. sec to MSSA. Follow up blood culture - negative so far. Stable for d/c on oral abx (3) Cellulitis: Assessment and plan: Improved. No abscess on CT. 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 Renal function back to baseline. Euvolemic on exam today. Resume oral bumex. (5) Acute kidney failure: Assessment and plan: more or less close to baseline. Qualifiers: Acute renal failure type: unspecified Qualified Code(s): N17.9 - Acute kidney failure, unspecified (6) CAD (coronary artery disease): Assessment and plan: Stable. No CP, SOB. C/w home meds Qualifiers: Coronary Disease-Associated Artery/Lesion type: [place] artery [place] vs. transplanted heart: [place] heart Associated angina: without angina Qualified Code(s): I25.10 - Atherosclerotic heart disease of [place] coronary artery without angina pectoris (7) Hyponatremia: Assessment and plan: Due to hypervolemia, resolved. (8) Diabetes: Assessment and plan: C/w basal/bolus insulin. 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 No wheezing. C/w home medications. Qualifiers: COPD type: unspecified COPD Qualified Code(s): J44.9 - Chronic obstructive pulmonary disease, unspecified (10) Stage 3a chronic kidney disease (CKD): Assessment and plan: C/w home medications. Renal function more or less back to baseline. (11) MSSA bacteremia: Assessment and plan: F/u blood cultures 08/30 - negative so far. Stable for d/c on oral abx. Need to finish atleast 14 days of abx. ECHO - no evidence of valvular vegetation (12) Below-knee amputation of right lower extremity: Assessment and plan: Uses prosthetic. Qualifiers: Encounter type: subsequent encounter Qualified Code(s): S88.111D - Complete traumatic amputation at level between knee and ankle, right lower leg, subsequent encounter (13) Hyperlipemia: Assessment and plan: C/w statin Qualifiers: Hyperlipidemia type: unspecified Qualified Code(s): E78.5 - Hyperlipidemia, unspecified (14) Hypertension: Assessment and plan: Cw home medications Qualifiers: Hypertension type: primary hypertension Qualified Code(s): I10 - Essential (primary) hypertension DS: Summary Hospital Course Hospital Course: 67-year-old male was admitted for sepsis secondary to left foot cellulitis. He was treated with IV hydration, IV Zosyn and Zyvox because of prior history of Staph aureus. Patient has history of heart failure with preserved ejection fraction fluid overload with IV fluids. As a result, he needed IV diuresis for acute on chronic systolic heart failure. Patient also developed acute kidney injury likely because of cardiorenal syndrome and improvement in his renal function with diuresis. Patient is euvolemic on exam today and is stable for discharge on oral Bumex. Patient's blood culture was positive for MSSA for which he was switched to IV cefazolin. He will need at least 14 days of treatment with antibacterial agent. Because of MSSA bacteremia, repeat blood cultures were ordered on 08/31/2023 and they are negative so far. No evidence of valvular vegetation on echocardiogram. Patient is medically stable for discharge on oral antibiotic. He will need follow-up with cardiology as outpatient and primary care physician Patient educated on worrisome signs and symptoms and was instructed to come to ED if he develop fever/erythema/pain/confusion. Status at Discharge Functional status at discharge: independent ambulation Overall status at discharge: patient is back to baseline Time Spent with Patient Time attestation: Total time spent providing and/or coordinating discharge services: Time spent: greater than 30 minutes Exam Constitutional Vital Signs, click to edit/add: Last Vital Signs Temp 98 F 09/01/23 07:35 Pulse 74 09/01/23 09:52 Resp 20 09/01/23 07:35 BP 130/67 09/01/23 07:35 Pulse Ox 95 09/01/23 07:35 O2 Del Method Room Air 09/01/23 07:35 Documenting provider has reviewed patient's vital signs: yes Common normals: no apparent distress and oriented x3 General appearance: cooperative Respiratory Common normals: normal respiratory effort and clear to auscultation bilaterally Effort & inspection: able to speak in complete sentences Auscultation: clear to auscultation bilaterally Cardio Common normals: regular rate, S1 normal heart sound and S2 normal heart sound Rate: regular rate Heart sounds: S1 normal and S2 normal Extremity Other: Right below-knee amputation Left transmetatarsal amputation. Erythema/tenderness/swelling at ankle more or less resolved Neuro Common normals: oriented x3, moves all extremities and no focal motor deficits Psych Common normals: mental status grossly normal, denies hallucinations, denies homicidal ideation and denies suicidal ideation DS: Data Data Completed and Pending Labs on day of discharge: Labs from last 24 hours 09/01/23 08/31/23 04:36 10:05 WBC 9.7 RBC 4.21 L Hgb 12.3 L Hct 37.1 L MCV 88.1 MCH 29.2 MCHC 33.2 RDW 14.6 Plt Count 266 MPV 9.5 Neut % (Auto) 79.7 H Lymph % (Auto) 5.3 L [place] % (Auto) 10.2 Eos % (Auto) 3.1 Baso % (Auto) 0.2 Neut # (Auto) 7.7 H Lymph # (Auto) 0.5 L [place] # (Auto) 1.0 H Eos # (Auto) 0.3 Baso # (Auto) 0.0 Abs Immat Gran (auto) 0.14 H Imm/Tot Granulo (auto) 1.5 H Sodium 135 L Potassium 3.4 L Chloride 98 Carbon Dioxide 30.6 Anion Gap 9.8 BUN 38.0 H Creatinine 1.61 H Est GFR ( Amer) 53 L Est GFR (Non-Af Amer) 43 L BUN/Creatinine Ratio 23.6 Glucose 108 H Calcium 8.6 Total Bilirubin 0.5 AST 29 ALT 34 Alkaline Phosphatase 82 NT-Pro-B Natriuret Pep 6017.0 H* Total Protein 6.5 Albumin 2.0 L Globulin 4.5 Albumin/Globulin Ratio 0.4 Preliminary micro results at discharge 08/27/23 11:24 - Preliminary Blood Staphylococcus aureus Discharge Plan Discharge Disposition: Home, Self-Care Discharge Medications: New cephalexin 500 mg capsule 500 mg PO TID 12 Days Qty: 36 0RF Continued albuterol sulfate [ProAir HFA] 90 mcg/actuation HFA aerosol inhaler 2 inh inhalation Q6H PRN (Reason: shortness of breath or wheezing) allopurinol 100 mg tablet 200 mg PO DAILY ascorbic acid (vitamin C) 500 mg capsule 500 mg PO DAILY aspirin [Adult Aspirin Regimen] 81 mg tablet,delayed release (DR/EC) 81 mg PO DAILY atorvastatin 80 mg tablet 80 mg PO DAILY bumetanide 2 mg tablet 1 mg PO BID carvedilol 6.25 mg tablet 6.25 mg PO BID Rx Instructions: must administer with a meal/food cholecalciferol (vitamin D3) 125 mcg (5,000 unit) capsule 5,000 unit PO DAILY coQ10 (ubiquinol) [Qunol Cory CoQ10] 100 mg capsule 100 mg PO DAILY fluticasone furoate-vilanterol [Breo Ellipta] 200-25 mcg/dose blister with device 1 inh inhalation DAILY PRN (Reason: increased sob) losartan [Cozaar] 25 mg tablet 25 mg PO DAILY magnesium oxide 400 mg magnesium capsule 400 mg PO DAILY multivitamin [Daily Multi-Vitamin] Tablet 1 tab PO DAILY nitroglycerin [Nitrostat] 0.4 mg tablet, sublingual 0.4 mg sublingual Q5M Rx Instructions: do not exceed 3 doses per episode prednisone 5 mg tablet 5 mg PO .COMPLEX Rx Instructions: 5 mg orally Every other day; spironolactone 25 mg tablet 25 mg PO DAILY duloxetine 30 mg capsule,delayed release(DR/EC) 30 mg PO DAILY insulin lispro 100 unit/mL insulin pen, half-unit 15 unit SUBCUT TIDWM Rx Instructions: WITH MEALS insulin glargine [Lantus U-100 Insulin] 100 unit/mL solution 40 unit SUBCUT .qhs Discontinued dapagliflozin propanediol [Farxiga] 10 mg tablet 10 mg PO DAILY Activity: increase activity as tolerated Diet: advance to your usual diet Print Language: Greek Patient Instructions: Cephalexin (By mouth), Cellulitis (GEN) Forms: Portal Instructions Follow Up Appointments: Follow up with PCP in one week Follow up with Cardiology in 2 weeks
--- NOTE | 2023-09-03 15:58 | CM.DCFOLLOWU ---
Person spoke with: Caio How are you feeling? Getting better slowly How is your pain? No pain Did you understand your discharge instructions? Yes Do you have any questions about your discharge instructions? No Were you given any prescriptions at discharge? Yes Were you able to get your prescriptions filled? Yes Do you understand how to take your medications as ordered? Yes Do you have any questions about your follow up appointment and do you plan to keep your follow up appointment? No appts are scheduled Is there anything else that you would like to discuss? No Questions/Comments/Concerns/Other:
--- NOTE | 2023-09-04 15:49 | NUTR.NU ---
Pt was admitted 08/27/23 w/dx sepsis, AKF, CKD-Stage 3, DM, wounds to left foot/ankle (cellulitis, abscess, +1 edema). PO intakes of 1800 kcal CCD diet improved during stay from 25-100%, average 78%. Intakes meet pt's estimated nutrient requirements. 1500 mL fluid restriction was increased to 2000 mL prior to discharge. Encourage therapeutic diet compliance and follow PRN.
== END 2023-09-01 11:28 | disposition home or self-care (01) | DRG 871 ==
LOC: ER 13:10 → ICU 13:35 → MS 17:42
PROVIDERS: Internal Medicine; Admitting Provider Family Medicine; Emergency Provider Emergency Medicine; PCP Internal Medicine; Visit Provider Family Medicine
DX: A41.01 Sepsis due to Methicillin susceptible Staphylococcus aureus (principal); I50.23 Acute on chronic systolic (congestive) heart failure; L03.116 Cellulitis of left lower limb; N17.9 Acute kidney failure, unspecified; I13.0 Hypertensive heart and chronic kidney disease with heart failure and stage 1 through stage 4 chronic kidney disease, or unspecified chronic kidney disease; E87.1 Hypo-osmolality and hyponatremia; R65.20 Severe sepsis without septic shock; E11.628 Type 2 diabetes mellitus with other skin complications; J44.9 Chronic obstructive pulmonary disease, unspecified; I25.10 Atherosclerotic heart disease of native coronary artery without angina pectoris; E11.22 Type 2 diabetes mellitus with diabetic chronic kidney disease; N18.31 Chronic kidney disease, stage 3a; K21.9 Gastro-esophageal reflux disease without esophagitis; E78.5 Hyperlipidemia, unspecified; E11.42 Type 2 diabetes mellitus with diabetic polyneuropathy; Z79.899 Other long term (current) drug therapy; Z79.4 Long term (current) use of insulin; Z79.82 Long term (current) use of aspirin; Z86.14 Personal history of Methicillin resistant Staphylococcus aureus infection; Z98.890 Other specified postprocedural states; Z95.5 Presence of coronary angioplasty implant and graft; Z90.49 Acquired absence of other specified parts of digestive tract; Z89.432 Acquired absence of left foot; Z89.511 Acquired absence of right leg below knee; I25.2 Old myocardial infarction; Z95.810 Presence of automatic (implantable) cardiac defibrillator
CPT/HCPCS: 36415; 71045; 71046; 73610; 73700; 80048; 80053; 81001; 82948; 83036; 83605; 83880; 84145; 85007; 85025; 85027; 85652; 86140; 87040; 87070; 87150; 87186; 93308; 93356; 94640; 94761; 96365; 96366; 96367; 96368; 96372; 96375; 96376; 97161; 97165; 97530; 99285; J2020; J3370

== ENCOUNTER 2023-09-10 15:33 | Outpatient (OUT) | payer MEDICARE, SELFPAY | END 2023-09-10 15:34 | disposition home or self-care (01) | LOC: WC 15:33 | PROVIDERS: PCP Internal Medicine; Visit Provider Physician Assistant | DX: L03.116 Cellulitis of left lower limb (principal); A49.01 Methicillin susceptible Staphylococcus aureus infection, unspecified site; L97.422 Non-pressure 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 with fat layer exposed | CPT/HCPCS: G0463 ==

== ENCOUNTER 2023-10-05 12:17 | Observation (INO) | payer MEDICARE, SELFPAY ==
[2023-10-05] VITALS (8 sets, daily range): BP systolic 101–127; BP diastolic 52–76; PULSE 69–83; TEMP 36.4–36.9; O2SAT 96–98; BMI 28.5; BMI 25.2
--- NOTE | 2023-10-05 12:39 | ED_ITS ---
HPI HPI - General Adult General Chief complaint: Extremity Injury, Lower Stated complaint: LOWER EXTREMITY PAIN Time Seen by Provider: 10/05/23 12:27 Source: patient and family Mode of arrival: walk-in Limitations: no limitations History of Present Illness HPI narrative: This patient is here for increasing discomfort swelling and redness in his left foot and ankle area. 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 He has had partial amputation of his left foot. He is not currently on any antibiotics. He does have a history of MRI say and osteomyelitis. He has a history of coronary artery disease and has approximately 5 stents and he has had an [place]. He has had a recent echocardiogram done at a different hospital the results have not been made available he does not have any chest pain or shortness of breath. He has not had a fever at home. He says his blood sugars have been running higher than normal. He has neuropathy so he really does not have a lot of pain in that leg. Related Data Home Medications ?Medication ?Instructions ?Recorded ?Confirmed albuterol sulfate 90 mcg/actuation 2 inh inhalation Q6H PRN shortness 04/16/23 10/05/23 aerosol inhaler (ProAir HFA) of breath or wheezing allopurinol 100 mg tablet 200 mg PO DAILY 04/16/23 10/05/23 ascorbic acid (vitamin C) 500 mg 500 mg PO DAILY 04/16/23 10/05/23 capsule aspirin 81 mg tablet,delayed 81 mg PO DAILY 04/16/23 10/05/23 release (Adult Aspirin Regimen) atorvastatin 80 mg tablet 80 mg PO DAILY 04/16/23 10/05/23 bumetanide 2 mg tablet 1 mg PO BID 04/16/23 10/05/23 carvedilol 6.25 mg tablet 6.25 mg PO BID 04/16/23 10/05/23 cholecalciferol (vitamin D3) 125 5,000 unit PO DAILY 04/16/23 10/05/23 mcg (5,000 unit) capsule coQ10 (ubiquinol) 100 mg capsule 100 mg PO DAILY 04/16/23 10/05/23 (Qunol Cory CoQ10) fluticasone furoate 200 1 inh inhalation DAILY PRN 04/16/23 10/05/23 mcg-vilanterol 25 mcg/dose increased sob inhalation powder (Breo Ellipta) losartan 25 mg tablet (Cozaar) 25 mg PO DAILY 04/16/23 10/05/23 magnesium oxide 400 mg PO DAILY 04/16/23 10/05/23 multivitamin (Daily Multi-Vitamin 1 tab PO DAILY 04/16/23 10/05/23 tablet) nitroglycerin 0.4 mg sublingual 0.4 mg sublingual Q5M 04/16/23 10/05/23 tablet (Nitrostat) prednisone 5 mg tablet 5 mg PO .COMPLEX 04/16/23 10/05/23 spironolactone 25 mg tablet 25 mg PO DAILY 04/16/23 10/05/23 duloxetine 30 mg capsule,delayed 30 mg PO DAILY 06/20/23 10/05/23 release insulin glargine 100 unit/mL 40 unit subcut .qhs 06/20/23 10/05/23 subcutaneous solution (Lantus U-100 Insulin) insulin lispro 100 unit/mL 15 unit subcut TIDWM 06/20/23 10/05/23 subcutaneous half-unit pen Allergies Allergy/AdvReac Type Severity Reaction Status Date / Time chlorpheniramine Allergy Hives Verified 08/27/23 10:44 dextromethorphan Allergy Hives Verified 08/27/23 10:44 doxycycline Allergy Verified 08/27/23 10:44 hydrocodone [From Tussionex] Allergy Hives Verified 08/27/23 10:44 levofloxacin Allergy Chest Pain Verified 08/27/23 10:44 Opioid HPI Opioid Management Most Recent Opioid Data: Last Pain Scale 2 08/31/23 06:10 Last ED Pain Assessment 10/05/23 12:27 Last ORT Total Score 0 08/27/23 13:49 Last ORT Risk Category Low Risk 08/27/23 13:49 [facility] Medical History Below-knee amputation of right lower extremity ?S88.111A - Complete traumatic amputation at level between knee and ankle, right lower leg, initial encounter (ICD-10) Arthritis ?M19.90 - Unspecified osteoarthritis, unspecified site (ICD-10) MRSA (methicillin resistant Staphylococcus aureus) ?A49.02 - Methicillin resistant Staphylococcus aureus infection, unspecified site (ICD-10) Peptic ulcer ?K27.9 - Peptic ulcer, site unspecified, unspecified as acute or chronic, without hemorrhage or perforation (ICD-10) Skin cancer ?C44.90 - Unspecified malignant neoplasm of skin, unspecified (ICD-10) Bronchitis ?J40 - Bronchitis, not specified as acute or chronic (ICD-10) Seizures ?R56.9 - Unspecified convulsions (ICD-10) Myocardial infarction (2015) ?I21.9 - Acute myocardial infarction, unspecified (ICD-10) Osteomyelitis ?M86.9 - Osteomyelitis, unspecified (ICD-10) Chronic ulcer of left ankle ?L97.329 - Non-pressure chronic ulcer of left ankle with unspecified severity (ICD-10) Diabetic neuropathy ?E11.40 - Type 2 diabetes mellitus with diabetic neuropathy, unspecified (ICD -10) Sleep apnea ?G47.30 - Sleep apnea, unspecified (ICD-10) Diabetic retinopathy ?E11.319 - Type 2 diabetes mellitus with unspecified diabetic retinopathy without macular edema (ICD-10) 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E78.5 - Hyperlipidemia, unspecified (ICD-10) Ischemic cardiomyopathy ?I25.5 - Ischemic cardiomyopathy (ICD-10) Apical mural thrombus ?I51.3 - Intracardiac thrombosis, not elsewhere classified (ICD-10) Cardiac defibrillator in place ?Z95.810 - Presence of automatic (implantable) cardiac defibrillator (ICD-10) Surgical History H/O foot surgery ?Z98.890 - Other specified postprocedural states (ICD-10) History of excision of lesion ?Z98.890 - Other specified postprocedural states (ICD-10) ?Z87.2 - Personal history of diseases of the skin and subcutaneous tissue (ICD-10) History of cardiac catheterization ?Z98.890 - Other specified postprocedural states (ICD-10) History of heart artery stent ?Z95.5 - Presence of coronary angioplasty implant and graft (ICD-10) History of cholecystectomy ?Z90.49 - Acquired absence of other specified parts of digestive tract (ICD-10) History of arthroscopy of knee ?Z98.890 - Other specified postprocedural states (ICD-10) History of foot surgery ?Z98.890 - Other specified postprocedural states (ICD-10) H/O hand surgery ?Z98.890 - Other specified postprocedural states (ICD-10) History of colonoscopy ?Z98.890 - Other specified postprocedural states (ICD-10) History of esophagogastroduodenoscopy (EGD) ?Z98.890 - Other specified postprocedural states (ICD-10) History of ankle surgery ?Z98.890 - Other specified postprocedural states (ICD-10) Family History Mother Family history of CHF (congestive heart failure) Family history of diabetes mellitus Family history of hypertension Heart disease Father Family history of hypertension Social History Within the past year, how often did you have a drink containing alcohol: monthly or less Within the past year, how many standard drinks containing alcohol did you have on a typical day: 1 or 2 Within the past year, how often did you have six or more drinks on one occasion: never Total score: 0 Score interpretation: A score less than 4 is consistent with normal alcohol consumption. Smoking status: Never smoker Non-prescribed substance use: denies use Previous occupational history: retired Highest level of school completed/degree received: some college, no degree Are you now , , , , never or living with a partner: In a typical week, how many times do you talk on the telephone with family, friends, or neighbors: 3 or more times per week How often do you get together with friends or relatives: 3 or more times per week How often do you attend oriental orthodox or taoist services: 4 or more times per year Do you belong to any clubs or organizations such as oriental orthodox groups unions, fraternal or athletic groups, or school groups: no Total score: 3 Score interpretation: A score of greater than or equal to 2 indicates the lowest level of social isolation. Little interest or pleasure in doing things: not at all Feeling down, depressed, or hopeless: not at all Feel stressed/tense/nervous/anxious/difficulty sleeping: not at all Do you think of yourself as: straight/heterosexual Gender Identity: male Exam Narrative Exam Narrative: Awake alert very pleasant gentleman's . He is afebrile does not have tachycardia or. He is skin is warm and dry mucous memories are moist and pink he does not appear ill. His lungs were clear with no wheeze rales or rhonchi heart sounds are normal with no gallop or murmur. Moving to his extremity he is amputee on the right side and on the left side the medial aspect of his left ankle is erythematous swollen red. Pulses are present. There is no evidence of DVT or phlebitis in the thigh area. The knee joint is asymptomatic. Constitutional Vital Signs, click to edit/add: Last Vital Signs Temp 98.5 F 10/05/23 12:20 Pulse 70 10/05/23 12:20 Resp 18 10/05/23 12:20 BP 111/60 10/05/23 12:20 Pulse Ox 96 10/05/23 12:20 O2 Del Method Room Air 10/05/23 12:20 Course Vital Signs Vital signs: Vital Signs Temperature 98.5 F 10/05/23 12:20 Pulse Rate 70 10/05/23 12:20 Respiratory Rate 18 10/05/23 12:20 Blood Pressure 111/60 10/05/23 12:20 Pulse Oximetry 96 10/05/23 12:20 Oxygen Delivery Method Room Air 10/05/23 12:20 Temperature 98.5 F 10/05/23 12:20 Pulse Rate 70 10/05/23 12:20 Respiratory Rate 18 10/05/23 12:20 Blood Pressure 111/60 10/05/23 12:20 Pulse Oximetry 96 10/05/23 12:20 Oxygen Delivery Method Room Air 10/05/23 12:20 Medical Decision Making MDM Narrative Medical decision making narrative: Patient's baseline white blood cell count is stable but his sedimentation rate is elevated again and his kidney function is worsening substantially. Glucoses are within acceptable ranges. X-ray shows soft tissue swelling but no air in the soft tissue or new fracture. These findings and lab work consistent with a worsening of his underlying soft tissue infection involving this left ankle problem which is now acute on chronic. I spoke to the hospitalist. Will go ahead and get him admitted Discharge Plan Discharge Chief Complaint: Extremity Injury, Lower Clinical Impression: Cellulitis of left ankle Patient Disposition: Admitted as Observation Time of Disposition Decision: 14:19 Prescriptions / Home Meds: No Action albuterol sulfate [ProAir HFA] 90 mcg/actuation HFA aerosol inhaler 2 inh inhalation Q6H PRN (Reason: shortness of breath or wheezing) allopurinol 100 mg tablet 200 mg PO DAILY ascorbic acid (vitamin C) 500 mg capsule 500 mg PO DAILY aspirin [Adult Aspirin Regimen] 81 mg tablet,delayed release (DR/EC) 81 mg PO DAILY atorvastatin 80 mg tablet 80 mg PO DAILY bumetanide 2 mg tablet 1 mg PO BID carvedilol 6.25 mg tablet 6.25 mg PO BID Rx Instructions: must administer with a meal/food cholecalciferol (vitamin D3) 125 mcg (5,000 unit) capsule 5,000 unit PO DAILY coQ10 (ubiquinol) [Qunol Cory CoQ10] 100 mg capsule 100 mg PO DAILY fluticasone furoate-vilanterol [Breo Ellipta] 200-25 mcg/dose blister with device 1 inh inhalation DAILY PRN (Reason: increased sob) losartan [Cozaar] 25 mg tablet 25 mg PO DAILY magnesium oxide 400 mg magnesium capsule 400 mg PO DAILY multivitamin [Daily Multi-Vitamin] Tablet 1 tab PO DAILY nitroglycerin [Nitrostat] 0.4 mg tablet, sublingual 0.4 mg sublingual Q5M Rx Instructions: do not exceed 3 doses per episode prednisone 5 mg tablet 5 mg PO .COMPLEX Rx Instructions: 5 mg orally Every other day; spironolactone 25 mg tablet 25 mg PO DAILY duloxetine 30 mg capsule,delayed release(DR/EC) 30 mg PO DAILY insulin lispro 100 unit/mL insulin pen, half-unit 15 unit SUBCUT TIDWM Rx Instructions: WITH MEALS insulin glargine [Lantus U-100 Insulin] 100 unit/mL solution 40 unit SUBCUT .qhs Print Language: Welsh Referrals: DEON BRAXTON [Primary Care Provider] - 1 week
--- NOTE | 2023-10-05 12:42 | XR_ITS ---
The [address] [address] Patient Name: ANAI PELAYO MRN: [id number] date: 1955 Sex: M Assigned Patient Location: ER Current Patient Location: ED.MAIN Accession/Order Number: [id number] Exam Date: 10/05/2023 12:55 Report Date: 10/05/2023 13:17 At the request of: RASHAWN HUDSON Procedure: XR ankle LT min 3V Exam: Radiographs: XR ankle LT min 3V Reason for exam: Osteomyelitis Comparison: Plain films dated 08/27/2023 XR/XR ankle LT min 3V IMPRESSION: Soft tissue swelling throughout the foot and ankle, correlate clinically. Erosions along the lateral aspect of the distal fibular metaphysis is favored to be chronic and is unchanged. Amputation of the left foot at the level of the proximal metatarsals. Degenerative changes in the mid and hindfoot. Atherosclerotic calcifications. Remainder of the left ankle radiographs is unremarkable. Electronically authenticated by: SHAHEEN NAVAS Date: 10/05/2023 13:17
--- OUTSIDE RECORDS SUMMARY | 2023-10-05 12:43 | XMS_ITS | CCD ---
Author Organization [facility] Care Team Providers Care Van Driver Name Role Phone DEON BRAXTON Primary Care Unavailable Chirag Gutierrez DO Attending Un available UNIQUESDEON Consulting Unavailable YUMARVAS, DEON SRINIVAS Primary Care Unavailable Chirag Gutierrez DO Attending Un available YUHASDEON Consulting Unavailable YUHAS, DEON SRINIVAS Primary Care Unavailable Chirag Gutierrez DO Attending Un available YUMARVAS, DEON ESPINO Primary Care Unavailable Chirag Gutierrez DO Attending Un available Pako Aguilar Unavailable Reddy Brandt Unavailable DO Deon Braxton Primary Care Provider DO Reddy Brandt Attending Provider DO Reddy Brandt Referring Provider CRISTINA Bailey Attending Provider DO Reddy Brandt Admit Provider [phone] NBA Hope Other Provider Unavailable NBA Ruiz Other Provider Unavailable NBA Sorensen Other Provider Unavailable NBA Jasso Other Provider Unavailable NBA Frederick Other Provider Unavailable NBA Parmar Other Provider Unavailable MD Fredi Mendez Other Provider KRUNAL Galvin Other Provider DO Julia Segura Other Provider MD Armando Hanks Other Provider [phone] DO Golden Whatley Other Provider MD Adi Feng Other Provider [phone] MD eLtty Turpin Other Provider Polly ANP-BC Faviola Other Provider MD Brett Muñoz Other Provider MD Dennis Larson Other Provider MD Rodriguez Loera Other Provider MD Cuauhtemoc Ramos Other Provider MD Darine Maria Other Provider MD Stewart Lucio Other Provider MD Sonido Murillo Other Provider ISI Britton-C Mai Vega Other Provider MD Christiano Evans Other Provider MD Isidro Antunez Other Provider MD Rosalind Coburn Other Provider MD Bill Osei Other Provider DO Lizbeth Mcbride Other Provider Al MD Fabio Fernandez Other Provider DO Kwesi Muhammad Other Provider KRUNAL Patel Other Provider DO Bin Carrera Other Provider [phone] MD Patti Taylor Other Provider NBA [...] Consulting Unavailabl e CLOUGHERTYBALJEET Attending Unavailabl e CLOBALJEET SIERRA Admitting Unavailabl e YUMARVAS, DR CHAVARRIA Primary Care Unavailable IRAIS, DR CHAVARRIA Primary Care Unavailable LEON, DR CLEMENTS Consulting Unavailable BLANK, DR CLEMENTS Attending Unavailable BLANK, DR CLEMENTS Admitting Unavailable CLOBALJEET SIERRA Attending Unavailabl e CLOBALJEET SIERRA Admitting Unavailabl e YUMARVAS, DR CHAVARRIA Primary Care Unavailable BALJEET LEONG Admitting Unavailabl e YUHAS, DR CHAVARRIA Primary Care Unavailable BALJEET LEONG O Attending Unavailabl e JESUS, SALINA Walker Attending Unavailable IRAIS, DR CHAVARRIA Primary Care Unavailable [facility] Walker Consulting Unavailable SALINA LEE Admitting Unavailable JESUS, SALINA Walker Attending Unavailable IRASI, DR CHAVARRIA Primary Care Unavailable SALINA LEE Admitting Unavailable JESUS, SALINA Walker Attending Unavailable IRAIS, DR CHAVARRIA Primary Care Unavailable SALINA LEE Admitting Unavailable BALJEET LEONG Admitting Unavailabl e DANIAERTYBALJEET Attending Unavailabl clarissa SHERIFF, DR ANAI Edmond Consulting Unavailable IRAIS, DR CHAVARRIA Primary Care Unavailable BALJEET LEONG Consulting Unavailabl e YUDONNA, DR CHAVARRIA Primary Care Unavailable SALINA LEE Attending Unavailable JAZIEL, DR ANAI Edmond Consulting Unavailable SALINA LEE Admitting Unavailable SALINA LEE Consulting Unavailable BALJEET LEONG Attending Unavailabl e CLOBALJEET SIERRA Admitting Unavailabl e JAZIEL, DR ANAI Edmond Consulting Unavailable IRAIS, DR CHAVARRIA Primary Care Unavailable BALJEET LOENG Consulting Unavailabl e CLOUGHERTYBALJEET Admitting Unavailabl e CLOUGHERTYBALJEET Consulting Unavailabl e CLOUNAERTYBALJEET O Attending Unavailabl e YUDONNA, DR CHAVARRIA Primary Care Unavailable BALJEET LEONG Attending Unavailabl e CLOUGHBALJEET DE JESUS Admitting Unavailabl e YUMARVAS, DR CHAVARRIA Primary Care Unavailable CLOBALJEET SIERRA Attending Unavailabl e YUHAS, DR CHAVARRIA Primary Care Unavailable CLOBALJEET SIERRA O Admitting Unavailabl e YUHAS, DR CHAVARRIA Primary Care Unavailable SALINA LEE Attending Unavailable SALINA LEE Admitting Unavailable YUDONNA, DR CHAVARRIA Primary Care Unavailable HIGHLANDERSALINA Attending Unavailable HIGHLSALINA HURST Admitting Unavailable CLOUNAERTY, BALJEET Payan Attending Unavailabl e CLOUNAERTYBALJEET O Admitting Unavailabl e YUDONNA, DR CHAVARRIA Primary [...] Admitting Unavailable HIGHLANDER, SALINA Walker Attending Unavailable BUFFALO, DR ANAI Edmond Consulting Unavailable HIGHLANDER, SALINA Walker Admitting Unavailable YUHAS, DR CHAVARRIA Primary Care Unavailable HIGHLANDER, SALINA Walker Consulting Unavailable HIGHLANDER, SALINA Walker Attending Unavailable HIGHLANDER, SALINA Walker Admitting Unavailable YUHAS, DR CHAVARRIA Primary Care Unavailable ZIER, DR ARLEN Patel Consulting Unavailable HIGHLANDER, SALINA Walker Consulting Unavailable HIGHLANDER, SALINA Walker Attending Unavailable HIGHLARIS, SALINA Wlaker Admitting Unavailable YUHAS, DR CHAVARRIA Primary Care Unavailable HIGHLANDER, SALINA Walker Attending Unavailable HIGHLANDERSALINA Admitting Unavailable YUHAS, DR CHAVARRIA Primary Care Unavailable HIGHLANDER, SALINA Walker Attending Unavailable YUMARVAS, DR CHAVARRIA Primary Care Unavailable HIGHLANDER, SALINA Walker Admitting Unavailable HIGHLANDER, SALINA Walker Attending Unavailable YUHAS, DR CHAVARRIA Primary Care Unavailable HIGHLANDER, SALINA Walker Consulting Unavailable [facility] Walker Admitting Unavailable CLOUNAERTY, BALJEET O Attending Unavailabl e CLOUNAERTYBALJEET Admitting Unavailabl e IRAIS, DR CHAVARRIA Primary Care Unavailable SALO, BALJEET O Admitting Unavailabl e CLOUGHERTY, BALJEET [...] e IRAIS, DR CHAVARRIA Primary Care Unavailable CLOUGHLIZA, BALJEET O Admitting Unavailabl e CLOUGHERTY, BALJEET O Attending Unavailabl clarissa SHERIFF, DR ANAI Edmond Consulting Unavailable YUHAAnival, DR CHAVARRIA Primary Care Unavailable CLOUNAERTYBALJEET Consulting [...] Consulting Unavailable HIGHLANDERSALINA Consulting Unavailable ANAI MIRZA Consulting Unavailable YUHAS, DR CHAVARRIA Primary Care [...] e YUHAS, DR CHAVARRIA Primary Care Unavailable CLOUGHLIZA, BALJEET Payan Attending Unavailabl e CLOUGHERTY, BALJEET O Admitting Unavailabl e YUHAS, DR CHAVARRIA Primary Care Unavailable CLOMARIELA, BALJEET Payan Attending Unavailabl e CLOUGHERTY, BALJEET O Admitting Unavailabl e YUHAS, DR CHAVARRIA Primary Care Unavailable KIRK, DONALD Attending Unavailable KIRK, DONALD Admitting Unavailable YUHAS, DR CHAVARRIA Primary Care Unavailable KIRK, DONALD Consulting Unavailable KLYM, CHARLES Consulting Unavailable FAWWAD, H Attending Unavailable FAWSHENA, DIAZ H Admitting Unavailable YUHAS, DR CHAVARRIA Primary Care Unavailable BAUM, DR ALBER Rich Consulting Unavailable WEST, DR ANAI Edmond Consulting Unavailable ZIEBER, DR ARLEN Patel Consulting Unavailable SALOME, SANTOS Consulting Unavailable HIGHLANDER, SALINA Walker Consulting Unavailable AGUBOSIM, MICHELA Consulting Unavailable BIANCA, JORDI Consulting Unavailable SUZANNE, SHERINE Consulting Unavailable FAWSHENA, H Consulting Unavailable SALINA LEE Procedure Practitioner Unava ilable FRENCH, MARIA E Consulting Unavailable WOODY, AMAR Consulting Unavailable YUHAS, DR CHAVARRIA Primary Care Unavailable HIGHLANDER, SALINA Walker Attending Unavailable HIGHLSALINA HURST Consulting Unavailable SALINA LEE Admitting Unavailable HIGHLANDER, SALINA Walker Attending Unavailable WEST, DR ANAI Edmond Consulting [...] Alegre Other Provider ROHIT Palacios Emergency Provider [phone] Cortes, DO César Vega Emergency Provider [phone] Yuhas, DO Deon Primary Care Provider [phone] DO Reddy Brandt Attending Provider [phone] Yuhas, DO Deon Primary Care Provider DO Reddy Brandt Attending Provider [phone] DO César Cortes Emergency Provider DO Reddy Brandt Admit Provider Ghanshyam Kaye Unavailable Yuhas, DO Deon Primary Care Provider DO Reddy Brandt Attending Provider Dung Serna Unavailable Yumarvas Deon URENA Primary Care Provider TERRY LOCK Attending Unavailable YUHAS, DEON L Referring Unavailable YUHAS, DEON L Primary Care Unavailable Yuhas, DO Deon Primary Care Provider ERIKA Lee Attending Provider [phone] Salina Lee Attending Unavailable Salina Lee Admitting Unavailable Yuhas, Deon Primary Care Unavailable Yuhas, Deon Primary Care Unavailable Dung Serna Attending Unavailable Dung Serna Admitting Unavailable ZOEY CORNELIUS Attending Unavailable DEBI DICKSON Attending Unavailable YOVANNY CALHOUN Attending Unavailable DEBI DICKSON Attending Unavailable ZOEY CORNELIUS Attending Unavailable YOVANNY CALHOUN Referring Unavailable YUHAS, DEON L Referring Unavailable YUHAS, DEON L Primary Care Unavailable YUHAS, DEON L Referring Unavailable YUHAS, DEON L Primary Care Unavailable YUHAS, DEON L Attending Unavailable YUHAS, DEON L Referring Unavailable YUHAS, DEON L Primary Care Unavailable TYESHA MARQUEZ Attending Unavailable YUHAS, DEON L Referring Unavailable YUHAS, DEON L Primary Care Unavailable YUHAS, DEON L Attending Unavailable YUHAS, DEON L Referring Unavailable YUHAS, DEON L Primary Care Unavailable YOVANNY CALHOUN Attending Unavailable YOVANNY CALHOUN Referring Unavailable YUHAS, DEON L Primary Care Unavailable TYESHA MARQUEZ Referring Unavailable DEON BRAXTON Primary Care Unavailable NOEL JONES Attending Unavailable DEON BRAXTON Referring Unavailable DEON BRAXTON Primary Care Unavailable NOEL JONES Attending Unavailable NOEL JONES Referring Unavailable DEON BRAXTON Primary Care Unavailable Allergies Allergy Classification Reported Allergen(s) Allergy Type Date of Onset Reaction(s) Facility (20 sources) Chlorpheniramine; Translations: [chlorpheniramine] Drug Allergy 07-02-19 21 [facility] Repository (15 sources) Dextromethorphan; Translations: [dextromethorphan] Drug Allergy 10-19-19 22 Unknown Reaction [facility] Repository (20 sources) Doxycycline; Translations: [doxycycline] Drug Allergy 04-02-19 21 FELT LIKE A HEART ATTACK, Chest Pain [facility] Repository (20 sources) guaiFENesin; Translations: [guaiFENesin] Drug Allergy 04-14-19 16 [facility] Repository (20 sources) levoFLOXacin; Translations: [levoFLOXacin] Drug Allergy 04-02-19 21 Chest Pain [facility] Repository (20 sources) Phenylephrine; Translations: [phenylephrine] Drug Allergy 07-02-19 Unknown Reaction [facility] Repository (1 source) Tussionex [employer]; Translations: [Tussionex [employer]] Propensity to adverse reactions to drug (disorder) [facility] Repository (20 sources) Tussin Drug allergy [employer] [facility] Other (20 sources) HYDROcodone; Translations: [HYDROCODONE] Drug Allergy 10-19-19 [facility] (6 sources) Chlorpheniramine / HYDROcodone; Translations: [TUSSIONEX] Drug Allergy [facility] Repository (11 sources) Acetaminophen / diphenhydrAMINE / Phenylephrine; Translations: [EZKBBORKH-QI-QGBYV MINOPHEN] Drug Allergy 02-04-20 22 [facility] (7 sources) Chlorpheniramine / HYDROcodone Drug Allergy Itching [facility] (11 sources) Dextromethorphan; Translations: [DEXTROMETHORPHAN HBR] Drug Allergy 10-18-19 Itching [facility] (1 source) carbetapentane Drug Allergy 12-06-19 [facility] Repository Medications Current Medications Medication Drug Class(es) Dates Sig (Normalized) Sig (Original) acetaminophen 500 mg oral tablet (14 sources) Start: 10-27-2021 take 500 mg by mouth every four hours Acetaminophen Active 500 MG PO Q4H 100 October 26, 2021 11:00pm take 1 capsule by mouth every si x hours Acetaminophen 500 MG 1 capsule as needed Orally every 6 hrs Active [id number] 200 actuat albuterol 0.09 mg/actuat metered dose [...] mL nebulizer Indications: COPD with acute exacerbation ([facility]) USE 3 ML VIA [...] 06/12/2022 Active take 1 tablet by michael at mealtime Carvedilol 12.5 MG 1 tablet [...] A ctive 200 MG PO Every morning 30 October 26, 2021 11:00pm Start: 07-28-2022 Coenzyme Q10 A ctive 200 MG PO Every morning 30 October 27, 2021 12:00am collagenase 0.25 unt/mg [...] tablet Indications: Chronic systolic congestive heart failure ([facility]) Take 1 tablet (10 [...] arthropathy, with long-term current use of insulin ([facility]) CHANGE EVERY 2 WEEKS [...] arthropathy, with long-term current use of insulin ([facility]) Inject 15 Units under the skin in the morning and 15 Units at noon and 15 Units in the evening. Inject with meals. 30 mL 1 06/04/2023 Active Start: 03-22-2023 ADMELOG U-100 INSULIN LISPRO 100 unit/mL solution Indications: Type 2 diabetes mellitus with diabetic neuropathic arthropathy, with long-term current use of insulin ([facility]) Inject 15 Units under [...] tablet Indications: Chronic systolic congestive heart failure ([facility]) Take 1 tablet (25 mg total) by [...] Start: 10-07-2020 take 1 puff(s) by mo [facility] once daily fluticasone furoate-vilanteroL (BREO ELLIPTA) [...] Onset: 02-08-2021 Resolved: 12-14-2021 Episodic Conduction disorders (11 sources) Presence of automatic (implantable) cardiac defibrillator; Translations: [Cardiac defibrillator in situ] Onset: 09-06-2015 04-12-2023 Chronic Congestive heart failure; nonhypertensive (13 sources) Chronic systolic (congestive) heart failure; Translations: [Chronic systolic heart failure] Onset: 01-22-2020 04-12-2023 Chronic Coronary atherosclerosis and other heart disease (20 sources) Old myocardial infarction; Translations: [Atherosclerotic heart disease of [place] coronary artery without angina pectoris] Onset: 11-23-2017 [...] sources) Long-term current use of insulin; Translations: [rn long term care (current) use of insulin] Episodic Other and ill-defined heart disease (8 sources) Mural thrombus of heart; Translations: [Intracardiac thrombosis, not elsewhere classified] Onset: 11-23-2017 04-12-2023 Chronic Other and ill-defined heart disease (2 sources) Intracardiac thrombosis, not elsewhere classified; Translations: [Intracardiac [...] unspecified; Translations: [EDEMA UNSPECIFIED] Onset: 09-05-2021 Episodic Spondylosis; intervertebral disc disorders; other back [...] Pre-op Exam Onset: 04-12-2023 Unclassified (1 source) infection in ankle Onset: 09-06-2023 Past or Other Problems Problem Classification Problem [...] Onset: 01-18-2021 Episodic Other aftercare (1 source) rn long term care (current) use of aspirin; Translations: [[facility] CURRENT USE OF ASPIRIN] Onset: 03-02-2021 Episodic Other aftercare (3 sources) rn long term care (current) use of insulin; Translations: [[facility] CURRENT USE OF INSULIN] Onset: 04-22-2020 Episodic Other aftercare (1 source) Other detention (current) drug therapy; Translations: [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 ([id number]) [address] [place] [address] 27150 #### CMP #### [facility] ([id number]) [address], [address] [place] [address] ALP [Catalytic activity/Vol] 72 U/L Normal 39-130 [facility] Comment on above: Performed By: #### 3 0934-4 #### [facility] ([id number]) [address] [place] [address] 63758 #### CMP #### [facility] ([id number]) [address], [address] [place] [address] ALT [Catalytic activity/Vol] 32 U/L Normal 0-40 [facility] Comment on above: Performed By: #### 3 0934-4 #### [facility] ([id number]) [address] [place] [address] 84503 #### CMP #### [facility] ([id number]) [address], [address] [place] [address] Anion gap [Moles/Vol] 10 mmol/L Normal 5-15 [facility] Comment on above: Performed By: #### 3 0934-4 #### [facility] ([id number]) [address] [place] [address] 18530 #### CMP #### [facility] ([id number]) [address], [address] [place] [address] AST [Catalytic activity/Vol] 32 U/L Normal 0-41 [facility] Comment on above: Performed By: #### 3 0934-4 #### [facility] ([id number]) [address] [place] [address] 93866 #### CMP #### [facility] ([id number]) [address] [place] [address] Bilirubin [Mass/Vol] 1.1 mg/dL Normal 0.3-1.2 [facility] Comment on above: Performed By: #### 3 0934-4 #### [facility] ([id number]) [address] [place] [address] 39493 #### CMP #### [facility] ([id number]) [address] [place] [address] Calcium [Mass/Vol] 9.6 mg/dL Normal 8.5-10.5 [facility] Comment on above: Performed By: #### 3 0934-4 #### [facility] ([id number]) [address] [place] [address] 94814 #### CMP #### [facility] ([id number]) [address] [place] [address] Chloride [Moles/Vol] 96 mmol/L Low 98-109 [facility] Comment on above: Performed By: #### 3 0934-4 #### [facility] ([id number]) [address] [place] [address] 51829 #### CMP #### [facility] ([id number]) [address] [place] [address] CO2 [Moles/Vol] 30 mmol/L Normal 22-32 [facility] Comment on above: Performed By: #### 3 0934-4 #### [facility] ([id number]) [address] [place] [address] 19166 #### CMP #### [facility] ([id number]) [address] [place] [address] Creatinine [Mass/Vol] 1.24 mg/dL Normal 0.60-1.30 [facility] Comment on above: Result Comment: METH OD TRACEABLE TO IDMS STANDARD Performed By: #### 3 0934-4 #### [facility] ([id number]) [address] [place] [address] 30397 #### CMP #### [facility] ([id number]) [address] [place] [address] GFR/1.73 sq M.predicted among non-blacks MDRD (S/P/Bld) [Vol rate/Area] 65 mL/min/{1.73_m2} Normal >59 [facility] Comment on above: Result Comment: Reported eGFR is based on the CKD-EPI 2020 equation that does not use a race coefficient. Performed By: #### 3 0934-4 #### [facility] ([id number]) [address] [place] [address] 13735 #### CMP #### [facility] ([id number]) [address] [place] [address] Glucose [Mass/Vol] 154 mg/dL High 65-99 [facility] Comment on above: Performed By: #### 3 0934-4 #### [facility] ([id number]) [address] [place] [address] 93338 #### CMP #### [facility] ([id number]) [address], [address] [place] [address] Potassium [Moles/Vol] 4.4 mmol/L Normal 3.5-5.0 [facility] Comment on above: Performed By: #### 3 0934-4 #### [facility] ([id number]) [address] [place] [address] 06067 #### CMP #### [facility] ([id number]) [address] [place] [address] Protein [Mass/Vol] 7.3 g/dL Normal 6.0-8.0 [facility] Comment on above: Performed By: #### 3 0934-4 #### [facility] ([id number]) [address] [place] [address] 82963 #### CMP #### [facility] ([id number]) [address] [place] [address] Sodium [Moles/Vol] 136 mmol/L Normal 134-146 [facility] Comment on above: Performed By: #### 3 0934-4 #### [facility] ([id number]) [address] [place] [address] 23723 #### CMP #### [facility] ([id number]) [address] [place] [address] Urea nitrogen [Mass/Vol] 37 mg/dL High 5-27 [facility] Comment on above: Performed By: #### 3 0934-4 #### [facility] ([id number]) [address] [place] [address] 34796 #### CMP #### [facility] ([id number]) [address] [place] [address] Natriuretic peptide B [Mass/ Vol]on 09-13-2023 Natriuretic peptide B (Bld) [Mass/Vol] 198 pg/mL High <100.0 [facility] Comment on above: Performed By: #### 3 0934-4 #### [facility] ([id number]) [address] [place] [address] 13660 #### CMP #### [facility] ([id number]) [address] [place] [address] COMPREHENSIVE METABOLIC PANE Ray 08-02-2023 Albumin [Mass/Vol] 4.3 g/dL Normal 3.2-5.3 [facility] Comment on above: Performed By: #### C ALEA, 88072-9, HA1C #### [facility] ([id number]) [address] [place] [address] ALP [Catalytic activity/Vol] 85 U/L Normal 39-130 [facility] Comment on above: Performed By: #### C ALEA, 26422-5, HA1C #### [facility] ([id number]) [address] [place] [address] ALT [Catalytic activity/Vol] 31 U/L Normal 0-40 [facility] Comment on above: Performed By: #### Uzair COSBY, 45878-7, HA1C #### [facility] ([id number]) [address] [place] [address] Anion gap [Moles/Vol] 8 mmol/L Normal 5-15 [facility] Comment on above: Performed By: #### Uzair COSBY, 07625-4, HA1C #### [facility] ([id number]) [address] [place] [address] AST [Catalytic activity/Vol] 29 U/L Normal 0-41 [facility] Comment on above: Performed By: #### Uzair COSBY, 18065-5, HA1C #### [facility] ([id number]) [address] [place] [address] Bilirubin [Mass/Vol] 0.9 mg/dL Normal 0.3-1.2 [facility] Comment on above: Performed By: #### Uzair COSBY, 73520-2, HA1C #### [facility] ([id number]) [address] [place] [address] Calcium [Mass/Vol] 9.7 mg/dL Normal 8.5-10.5 [facility] Comment on above: Performed By: #### Uzair COSBY 52823-7, MARVA1C #### [facility] ([id number]) [address] [place] [address] Chloride [Moles/Vol] 103 mmol/L Normal 98-109 [facility] Comment on above: Performed By: #### Uzair COSBY 68901-8, MARVA1C #### [facility] ([id number]) [address], [address] [place] [address] CO2 [Moles/Vol] 31 mmol/L Normal 22-32 [facility] Comment on above: Performed By: #### Uzair COSBY 56850-5, ALANNAH #### [facility] ([id number]) [address] [place] [address] Creatinine [Mass/Vol] 1.35 mg/dL High 0.60-1.30 [facility] Comment on above: Result Comment: METH OD TRACEABLE TO IDMS STANDARD Performed By: #### Uzair COSBY 80386-9, MARVA1C #### [facility] ([id number]) [address] [place] [address] GFR/1.73 sq M.predicted among non-blacks MDRD (S/P/Bld) [Vol rate/Area] 58 mL/min/{1.73_m2} Low >59 [facility] Comment on above: Result Comment: Reported eGFR is based on the CKD-EPI 2020 equation that does not use a race coefficient. Performed By: #### Uzair COSBY 89478-3, MARVA1C #### [facility] ([id number]) [address] [place] [address] Glucose [Mass/Vol] 135 mg/dL High 65-99 [facility] Comment on above: Performed By: #### Uzair COSBY 15878-0, MARVA1C #### [facility] ([id number]) [address] [place] [address] Potassium [Moles/Vol] 4.3 mmol/L Normal 3.5-5.0 [facility] Comment on above: Performed By: #### Uzair COSBY, 43584-0, MARVA1C #### [facility] [facility] ([id number]) [address], [address] [place] [address] Protein [Mass/Vol] 6.9 g/dL Normal 6.0-8.0 [facility] Comment on above: Performed By: #### Uzair COSBY, 24169-3, HA1C #### [facility] ([id number]) [address], [address] [place] [address] Sodium [Moles/Vol] 142 mmol/L Normal 134-146 [facility] Comment on above: Performed By: #### Uzair COSBY, 28248-1, MARVA1C #### [facility] ([id number]) [address], [address] [place] [address] Urea nitrogen [Mass/Vol] 31 mg/dL High 5-27 [facility] Comment on above: Performed By: #### Uzair COSBY, 07231-9, MARVA1C #### [facility] ([id number]) [address], [address] [place] [address] HGB A1C (GLYCO-HGB)on 2023 Glucose [Mass/Vol] 114 mg/dL Normal [facility] Comment on above: Performed By: #### Uzair COSBY, 63061-9, HA1C #### [facility] ([id number]) [address], [address] [place] [address] HbA1c (Bld) [Mass fraction] 5.6 % Normal 4.4-5.6 [facility] Comment on above: Result Comment: NOTE ADA Guidelines Result HgbA1c Normal : less than 5.7 % Prediabetes : 5.7 % to 6.4 % Diabetes : > 6.4 % Use with caution in patients with abnormal hemoglobin variants as the half-life of red blood cells and in vivo glycation rates are affected. Performed By: #### Uzair COSBY, 79420-7, ALANNAH #### [facility] ([id number]) [address], [address] [place] [address] Lipid 1996 panelon 4 Cholesterol [Mass/Vol] 88 mg/dL Low 150-200 [facility] Comment on above: Performed By: #### Uzair COSBY, 20521-4, ALANNAH #### [facility] ([id number]) [address], [address] [place] [address] Cholesterol in HDL [Mass/Vol] 38 mg/dL Low >39 [facility] Comment on above: Result Comment: HDL <40 mg/dL - High Risk HDL > or = 40mg/dL- Desirable HDL >60 mg/dL - Negative Risk Performed By: #### Uzair COSBY, 17761-6, ALANNAH #### [facility] ([id number]) [address], [address] [place] [address] Cholesterol in LDL [Mass/Vol] 33 mg/dL Normal <130 [facility] Comment on above: Result Comment: LDL <100 mg/dL - Desirable LDL >160 mg/dL - High Risk Performed By: #### Uzair COSBY, 77195-7, ALANNAH #### [facility] ([id number]) [address], [address] [place] [address] Cholesterol in VLDL [Mass/Vol] 17 mg/dL Normal 0-30 [facility] Comment on above: Performed By: #### Uzair COSBY, 67631-3, HA1C #### [facility] ([id number]) [address], [address] [place] [address] CHOLESTEROL:HDL 2.3 Normal 1.0-5.0 [facility] Comment on above: Performed By: #### Uzair COSBY, 90957-4, HA1C #### [facility] ([id number]) [address], [address] [place] [address] Triglyceride [Mass/Vol] 83 mg/dL Normal 27-150 [facility] Comment on above: Performed By: #### Uzair COSBY, 25690-1, MARAV1C #### [facility] ([id number]) [address], [address] [place] [address] MICROALBUMIN - ALBUMIN:CREAT ININE URINE RATIOon 08-02-2023 ALB/CREAT RATIO 400.0 mg/g creat High 0.0-30.0 [facility] Comment on above: Performed By: #### M ALBU #### [facility] ([id number]) [address], [address] [place] [address] Albumin DL <= 20 mg/L (U) [Mass/Vol] 29.5 mg/dL High 0.0-1.9 [facility] Comment on above: Performed By: #### M ALBU #### [facility] ([id number]) [address], [address] [place] [address] URINE CREAT 73.75 mg/dL Normal [facility] Comment on above: Performed By: #### M ALBU #### [facility] ([id number]) [address], [address] [place] [address] Ray 04-19-2023 L Specimen: [id number] Received: 04/20/23 Status: SASHA Matta Num: [id number] Spec Type: Surgical Subm Dr: Salina Lee DPM, MS Tissues: A Bone Fragments - Other than Path Fracture (LT LATERAL MALLEOLUS) Procedures: HE, Gross/Micro L3, Decalcification Age/ Patient Sex Location Account Attending Physician RexAnai Heck 67/M [facility] [id number] Salina Lee DPM, MS SPEC NUM: [id number] RECD: 04/20/23 STATUS: SASHA PULIDOSandy NUM: [id number] KARIME: 04/19/[address]: Salina Lee DPM, MS ENTERED: 04/20/[address] [facility] [address]: Gin Gimenez SPEC [...] in one cassette labeled A1. CPT Codes 02629, 63613 -------- -------- Specimen: [id number] Received: 04/20/23 Status: SASHA Matta Num: [id number] Spec Type: Surgical Subm Dr: Salina Lee,DPM, MS Tissues: A Bone Fragments - Other than Path Fracture (LT LATERAL MALLEOLUS) Procedures: HE, Gross/Micro L3, Decalcification -------- Patient: Anai Goodman [id number] (Continued) -------- Signed (signature on file) Aniket Krishnamurthy MD 04/23/232202 [facility] POCT EKGon 04-12-2023 [facility] MR ANKLE LT W WO CONTon -0 [...] Bennett MD on 04/05/2023 8:50 AM Normal [facility] CBC AND AUTO DIFFon 03-22-20 ABSOLUTE BASOPHIL 0.0 X10E9/L Normal 0.0-0.2 [facility] Comment on above: Performed By: #### C BCA CMP, 74719-2, 308-1 #### [facility] ([id number]) [address], [address] [place] [address] ABSOLUTE NEUTROPHIL 8.3 X10E9/L High 1.5-6.6 [facility] Comment on above: Performed By: #### C BCA, CMP, 76282-6, 3083- #### [facility] ([id number]) [address], [address] [place] [address] Basophils/100 WBC (Bld) 0.3 % Normal [facility] Comment on above: Performed By: #### C BCA, CMP, 51132-7, 308- #### [facility] ([id number]) [address], [address] [place] [address] Eosinophils (Bld) [#/Vol] 0.4 10*3/uL Normal 0.0-0.4 [facility] Comment on above: Performed By: #### C BCA, CMP, 56759-3, 308-1 #### [facility] ([id number]) [address], [address] [place] [address] Eosinophils/100 WBC (Bld) 4.0 % Normal [facility] Comment on above: Performed By: #### C BCA, CMP, 03227-5, 308-1 #### [facility] ([id number]) [address], [address] [place] [address] Erythrocyte distribution width (RBC) [Ratio] 14.5 % Normal 11.5-15.0 [facility] Comment on above: Performed By: #### C JAYDON CMP, 44764-4, 3083-04 #### [facility] ([id number]) [address], [address] [place] [address] Hematocrit (Bld) [Volume fraction] 45.0 % Normal 39-49 [facility] Comment on above: Performed By: #### Uzair INTERIANO CMP, 96968-5, 3083- #### [facility] ([id number]) [address], [address] [place] [address] Hemoglobin (Bld) [Mass/Vol] 15.2 g/dL Normal 13.0-17.0 [facility] Comment on above: Performed By: #### Uzair INTERIANO CMP, , 3083-04 #### [facility] ([id number]) [address] [address] [place] [address] Lymphocytes (Bld) [#/Vol] 0.8 10*3/uL Low 1.0-3.5 [facility] Comment on above: Performed By: #### Uzair INTERIANO CMP, 48826-6, 3083-04 #### [facility] ([id number]) [address] [place] [address] Lymphocytes/100 WBC (Bld) 8.1 % Normal [facility] Comment on above: Performed By: #### Uzair INTERIANO, CMP, 12308-5, 3083- #### [facility] ([id number]) [address], [address] [place] [address] MCH (RBC) [Entitic mass] 30.6 pg Normal 27-34 [facility] Comment on above: Performed By: #### C BCA, CMP, 51195-4, 3083-04 #### [facility] ([id number]) [address], [address] [place] [address] MCHC (RBC) [Mass/Vol] 33.7 g/dL Normal 32-36 [facility] Comment on above: Performed By: #### C BCA, CMP, 31345-6, 3083- #### [facility] ([id number]) [address], [address] [place] [address] MCV (RBC) [Entitic vol] 91 fL Normal 80-100 P [facility] Comment on above: Performed By: #### C BCA, CMP, 87210-0, 3083-04 #### [facility] ([id number]) [address] [place] [address] Monocytes (Bld) [#/Vol] 0.8 10*3/uL Normal 0-0.9 [facility] Comment on above: Performed By: #### C BCA, CMP, 52057-5, 3083-04 #### [facility] ([id number]) [address], [address] [place] [address] Monocytes/100 WBC (Bld) 7.5 % Normal P [facility] Comment on above: Performed By: #### C BCA, CMP, , 3083- #### [facility] ([id number]) [address], [address] [place] [address] Neutrophils/100 WBC (Bld) 80.1 % Normal [facility] Comment on above: Performed By: #### C BCA, CMP, 28883-6, 3083- #### [facility] ([id number]) [address], [address] [place] [address] Platelet mean volume (Bld) [Entitic vol] 9.0 fL Normal 7-12 [facility] Comment on above: Performed By: #### C BCA, CMP, 13317-5, 308-1 #### [facility] ([id number]) [address], [address] [place] [address] Platelets (Bld) [#/Vol] 205 10*3/uL Normal 150-450 [facility] Comment on above: Performed By: #### C BCA, CMP, 73126-3, 308-1 #### [facility] ([id number]) [address], [address] [place] [address] RBC COUNT 4.95 X10E12/L Normal 4.10-5.70 [facility] Comment on above: Performed By: #### C BCA, CMP, 71364-6, 308- #### [facility] ([id number]) [address] [place] [address] WBC (Bld) [#/Vol] 10.4 10*3/uL Normal 4.0-11.0 [facility] Comment on above: Performed By: #### C BCA, CMP, 65800-2, 3083-1 #### [facility] ([id number]) [address], [address] [place] [address] COMPREHENSIVE METABOLIC PANE Ray 03-22-2023 Albumin [Mass/Vol] 4.3 g/dL Normal 3.2-5.3 [facility] Comment on above: Performed By: #### C BCA, CMP, 22341-8, 3083-1 #### [facility] ([id number]) [address], [address] [place] [address] ALP [Catalytic activity/Vol] 91 U/L Normal 39-130 [facility] Comment on above: Performed By: #### C BCA, CMP, 38807-3, 3084-1 #### [facility] ([id number]) [address], [address] [place] [address] ALT [Catalytic activity/Vol] 36 U/L Normal 0-40 [facility] Comment on above: Performed By: #### C BCA, CMP, 37221-0, 3083- #### [facility] ([id number]) [address] [place] [address] Anion gap [Moles/Vol] 7 mmol/L Normal 5-15 [facility] Comment on above: Performed By: #### C BCA, CMP, 95990-7, 3083- #### [facility] ([id number]) [address], [address] [place] [address] AST [Catalytic activity/Vol] 32 U/L Normal 0-41 [facility] Comment on above: Performed By: #### C BCA, CMP, 73074-6, 3083- #### [facility] ([id number]) [address] [place] [address] Bilirubin [Mass/Vol] 0.8 mg/dL Normal 0.3-1.2 [facility] Comment on above: Performed By: #### C BCA, CMP, 26723-0, 3083- #### [facility] ([id number]) [address], [address] [place] [address] Calcium [Mass/Vol] 10.2 mg/dL Normal 8.5-10.5 [facility] Comment on above: Performed By: #### C BCA, CMP, 10890-7, 3083- #### [facility] ([id number]) [address], [address] [place] [address] Chloride [Moles/Vol] 96 mmol/L Low 98-109 [facility] Comment on above: Performed By: #### C BCA, CMP, 48976-5, 3083-1 #### [facility] ([id number]) [address], [address] [place] [address] CO2 [Moles/Vol] 33 mmol/L High 22-32 [facility] Comment on above: Performed By: #### C BCA, CMP, 95476-6, 308-1 #### [facility] ([id number]) [address], [address] [place] [address] Creatinine [Mass/Vol] 1.61 mg/dL High 0.60-1.30 [facility] Comment on above: Result Comment: METH OD TRACEABLE TO IDMS STANDARD Performed By: #### C JAYDON, CMP, 11724-3, 3083-04 #### [facility] ([id number]) [address], [address] [place] [address] GFR/1.73 sq M.predicted among non-blacks MDRD (S/P/Bld) [Vol rate/Area] 47 mL/min/{1.73_m2} Low >59 [facility] Comment on above: Result Comment: Reported eGFR is based on the CKD-EPI 2020 equation that does not use a race coefficient. Performed By: #### C BCA, CMP, 50023-3, 3083-04 #### [facility] ([id number]) [address], [address] [place] [address] Glucose [Mass/Vol] 77 mg/dL Normal 65-99 [facility] Comment on above: Performed By: #### C JAYDON CMP, 27846-0, 3083-04 #### [facility] ([id number]) [address], [address] [place] [address] Potassium [Moles/Vol] 4.4 mmol/L Normal 3.5-5.0 [facility] Comment on above: Performed By: #### C BCA, CMP, 69815-5, 3083- #### [facility] ([id number]) [address], [address] [place] [address] Protein [Mass/Vol] 7.6 g/dL Normal 6.0-8.0 [facility] Comment on above: Performed By: #### C BCA, CMP, 26629-1, 308-1 #### [facility] ([id number]) [address], [address] [place] [address] Sodium [Moles/Vol] 136 mmol/L Normal 134-146 [facility] Comment on above: Performed By: #### C BCA, CMP, 53341-1, 308-1 #### [facility] ([id number]) [address] [address] [place] [address] Urea nitrogen [Mass/Vol] 37 mg/dL High 5-27 [facility] Comment on above: Performed By: #### C BCA, CMP, 20471-0, 308-1 #### [facility] ([id number]) [address], [facility] [address] [place] [address] HGB A1C (GLYCO-HGB)on 2022 Glucose [Mass/Vol] 143 mg/dL Normal [facility] Comment on above: Performed By: #### C JAYDON, CMP, 52872-7, 3083-1 #### [facility] ([id number]) [address] [address] [place] [address] HbA1c (Bld) [Mass fraction] 6.6 % High 4.4-5.6 [facility] Comment on above: Result Comment: NOTE ADA Guidelines Result HgbA1c Normal : less than 5.7 % Prediabetes : 5.7 % to 6.4 % Diabetes : > 6.4 % Use with caution in patients with abnormal hemoglobin variants as the half-life of red blood cells and in vivo glycation rates are affected. Performed By: #### C BCA, CMP, 50387-3, 3084-1 #### [facility] ([id number]) [address], [address] [place] [address] Lipid 1996 panelon 3 Cholesterol [Mass/Vol] 85 mg/dL Low 150-200 [facility] Comment on above: Performed By: #### C JAYDON, CMP, 66728-3, 3083-04 #### [facility] ([id number]) [address] [place] [address] Cholesterol in HDL [Mass/Vol] 36 mg/dL Low >39 [facility] Comment on above: Result Comment: HDL <40 mg/dL - High Risk HDL > or = 40mg/dL- Desirable HDL >60 mg/dL - Negative Risk Performed By: #### C JAYDON, CMP, 77932-8, 3083-04 #### [facility] ([id number]) [address] [place] [address] Cholesterol in LDL [Mass/Vol] 34 mg/dL Normal <130 [facility] Comment on above: Result Comment: LDL <100 mg/dL - Desirable LDL >160 mg/dL - High Risk Performed By: #### C JAYDON, CMP, 18725-1, 3083-04 #### [facility] ([id number]) [address] [place] [address] Cholesterol in VLDL [Mass/Vol] 15 mg/dL Normal 0-30 [facility] Comment on above: Performed By: #### Uzair INTERIANO, CMP, 18427-1, 3083- #### [facility] ([id number]) [address] [place] [address] CHOLESTEROL:HDL 2.4 Normal 1.0-5.0 [facility] Comment on above: Performed By: #### Uzair BCA, CMP, 11411-6, 308- #### [facility] ([id number]) [address] [place] [address] Triglyceride [Mass/Vol] 75 mg/dL Normal 27-150 [facility] Comment on above: Performed By: #### C BCA, CMP, 67632-3, 3084-1 #### [facility] ([id number]) [address] [place] [address] URIC ACIDon 03-22-2023 Urate [Mass/Vol] 8.0 mg/dL High 2.6-7.2 [facility] Comment on above: Performed By: #### C BCA, CMP, 64559-6, 30807-01 #### [facility] ([id number]) [address] [place] [address] XR cervical spine 2Von 10-05 XR cervical spine 2V [facility] Main [place] [address] [place] [address] XRay Report Signed Patient: Anai Goodman MR#: [id number] : 1955 Acct:[id number] Age/Sex: 66 / M ADM Date: 10/05/22 Loc: XD Room: Type: [facility] Attending Dr: Dung Serna MD Copies to: [...] Jose Sanabria M.D.10/05/2022 12:36 PM Dictation Location: [place] [address] Transcribed By: BLANCA 10/05/22 1236 Dictated By: Jose Sanabria DO 10/05/22 1233 Signed By: 10/05/22 1236 Normal [facility] Basophils Auto (Bld) [#/Vol] Ordered By: Spenser Elaine on 11-29-2021 Basophils (Bld) [#/Vol] 0.0 10*3/uL 0.0-0.2 [facility] Basophils/100 WBC Auto (Bld) Ordered By: Spenser Elaine on 11-29-2021 Basophils/100 WBC (Bld) 0.5 % . F [facility] Blood hemoglobin measurement (mass/volume)Ordered By: Spenser Elaine on 11-29-2021 Hemoglobin (Bld) [Mass/Vol] 12.6 g/dL 13.0-17.0 [facility] Blood leukocytes automated c ount (number/volume)Ordered By: Spenser Elaine on 11-29-2021 WBC (Bld) [#/Vol] 6.8 10*3/uL 4.5-11.0 [facility] COVID CepheidOrdered By: Junior Cortes on 11-29-2021 SARS-CoV-2 (COVID-19) Ab IA Ql Negative Negative [facility] Comment on above: This is a duplicate CepReelhouseid Xpert Xpress CoV-2/Flu/RSV Plus RNA by RT-PCR result to be used for statistical tracking purpose only. SARS-CoV-2 (COVID-19) RNA MEREDITH+probe Ql (Unsp spec) [facility] Creatinine and Glomerular fi ltration rate.predicted panel (S/P/Bld)Ordered By: Spenser Elaine on 11-29-2021 Creatinine [Mass/Vol] 1.38 mg/dL 0.64-1.27 [facility] Eosinophils Auto (Bld) [#/Vo l]Ordered By: Spenser Elaine on 11-29-2021 Eosinophils (Bld) [#/Vol] 0.5 10*3/uL 0.0-0.45 [facility] Eosinophils/100 WBC Auto (Bl d)Ordered By: Spenser Elaine on 11-29-2021 Eosinophils/100 WBC (Bld) 7.5 % . [facility] Erythrocyte distribution wid th Auto (RBC) [Ratio]Ordered By: Spenser Elaine on 11-29-2021 Erythrocyte distribution width (RBC) [Ratio] 15.7 % 12.0-14.8 [facility] Estimated glomerular filtrat ion rate (GFR) non- AmericanOrdered By: Spenser Elaine on 11-29-2021 GFR/1.73 sq M.predicted among non-blacks MDRD (S/P/Bld) [Vol rate/Area] 52 mL/Min [facility] Glucose Glucometer (dC) [M ass/Vol]Ordered By: Reddy Brandt on 11-29-2021 Glucose [Mass/Vol] 141 mg/dL [facility] Comment on above: Random Glucose Refer ence Range is dependent on time and content of last meal. Glucose of more than 200 mg/dL in a nonstressed, ambulatory subject supports the diagnosis of Diabetes Mellitus. Hematocrit Auto (Bld) [Volum e fraction]Ordered By: Spenser Elaine on 11-29-2021 Hematocrit (Bld) [Volume fraction] 38.3 % 38.8-50.0 [facility] - Hematology and Cell countsOrdered By: Spenser Elaine on 11-29-2021 Nucleated RBC/100 WBC (Bld) [Ratio] 0.0 % 0-0.5 [facility] - Microbiology an d Antimicrobial susceptibilityOrdered By: César Cortes on 11-29-2021 SARS-CoV-2 (COVID-19) RNA MEREDITH+probe Ql (Unsp spec) N/A [facility] Lymphocytes Auto (Bld) [#/Vo l]Ordered By: Spenser Elaine on 11-29-2021 Lymphocytes (Bld) [#/Vol] 0.6 10*3/uL 1.00-4.8 [facility] Lymphocytes/100 WBC Auto (Bl d)Ordered By: Spenser Elaine on 11-29-2021 Lymphocytes/100 WBC (Bld) 9.0 % . [facility] MCH Auto (RBC) [Entitic mass ]Ordered By: Spenser Elaine on 11-29-2021 MCH (RBC) [Entitic mass] 27.6 pg 27.5-35.2 [facility] MCHC Auto (RBC) [Mass/Vol]Or dered By: Spenser Elaine on 11-29-2021 MCHC (RBC) [Mass/Vol] 32.8 g/dL 32.5-35.6 [facility] MCV Auto (RBC) [Entitic vol] Ordered By: Spenser Elaine on 11-29-2021 MCV (RBC) [Entitic vol] 84.3 fL 83.5-101 F [facility] Monocytes Auto (Bld) [#/Vol] Ordered By: Spenser Elaine on 11-29-2021 Monocytes (Bld) [#/Vol] 0.7 10*3/uL 0.0-0.8 [facility] Monocytes/100 WBC Auto (Bld) Ordered By: Spenser Elaine on 11-29-2021 Monocytes/100 WBC (Bld) 10.9 % . F [facility] Neutrophils Auto (Bld) [#/Vo l]Ordered By: Spenser Elaine on 11-29-2021 Neutrophils (Bld) [#/Vol] 4.9 10*3/uL 1.8-7.7 [facility] Neutrophils/100 WBC Auto (Bl d)Ordered By: Spenser Elaine on 11-29-2021 Neutrophils/100 WBC (Bld) 72.1 % . [facility] No Panel InformationOrdered By: Reddy Brandt on 11-29-2021 Bedside Glucose Comment Glu2: cleaned meter [facility] No Panel InformationOrdered By: Spenser Elaine on 11-29-2021 Estimated GFR () > 60 mL/Min [facility] Comment on above: GFR estimated refere nce range: According to KDOQI guidelines, <60 ml/min/1.73m2 is sufficient to diagnose a patient with chronic kidney disease. Pharmacy Creatinine Clearance (Chem 66.84 [facility] Platelet mean volume Auto (B ld) [Entitic vol]Ordered By: Spenser Elaine on 11-29-2021 Platelet mean volume (Bld) [Entitic vol] 9.3 fL 6.6-10.1 [facility] Platelets Auto (Bld) [#/Vol] Ordered By: Spenser Elaine on 11-29-2021 Platelets (Bld) [#/Vol] 142 10*3/uL 150-450 [facility] RBC Auto (Bld) [#/Vol]Ordere d By: Spenser Elaine on 11-29-2021 RBC (Bld) [#/Vol] 4.54 10*6/uL 3.90-5.60 [facility] Serum or plasma anion gap de terminationOrdered By: Spenser Elaine on 11-29-2021 Anion gap [Moles/Vol] 12.0 mmol/L 6.0-15.0 [facility] Serum or plasma calcium sergei urement (mass/volume)Ordered By: Spenser Elaine on 11-29-2021 Calcium [Mass/Vol] 10.0 mg/dL 8.2-10.2 [facility] Serum or plasma chloride zofia surement (moles/volume)Ordered By: Spenser Elaine on 11-29-2021 Chloride [Moles/Vol] 100 mmol/L 95-114 [facility] Serum or plasma glucose sergei urement (mass/volume)Ordered By: Spenser Elaine on 11-29-2021 Glucose [Mass/Vol] 130 mg/dL 70-100 [facility] Comment on above: ADA recommended refe rence [...] on 11-29-2021 Potassium [Moles/Vol] 4.0 mmol/L 3.5-5.1 [facility] Serum or plasma sodium measu rement (moles/volume)Ordered By: Spenser Chele on 11-29-2021 Sodium [Moles/Vol] 138 mmol/L 136-146 [facility] Serum or plasma total carbon dioxide measurement (moles/volume)Ordered By: Spenser Chele on 11-29-2021 CO2 [Moles/Vol] 30.0 mmol/L 22.0-30.0 [facility] Serum or plasma urea nitroge n measurement (mass/volume)Ordered By: Spenser Elaine on 11-29-2021 Urea nitrogen [Mass/Vol] 22 mg/dL 12-23 [facility] Glucose Glucometer (BldC) [M ass/Vol]Ordered By: Reddy Brandt on 11-03-2021 Glucose [Mass/Vol] 174 mg/dL [facility] Comment on above: Random Glucose Refer ence Range is dependent on time and content of last meal. Glucose of more than 200 mg/dL in a nonstressed, ambulatory subject supports the diagnosis of Diabetes Mellitus. No Panel InformationOrdered By: Reddy Brandt on 11-03-2021 Bedside Glucose Comment Glu2: cleaned meter [facility] COVID-19 Positive/NegativeOr dered By: Reddy Brandt on 11-02-2021 SARS-CoV-2 (COVID-19) N gene MEREDITH+probe Ql (Resp) Negative Negative [facility] Comment on above: Testing for SARS-CoV -2 by RT-PCR This test was developed and its performance characteristics determined by [employer] ([employer]) and validated at the [facility]. This test has not been FDA cleared [...] developed and its performance characteristics determined by [employer] ([employer]) and validated at the [facility]. This test has not been FDA cleared [...] Kaye on 10-27-2021 Glucose [Mass/Vol] 166 mg/dL [facility] Comment on above: Random Glucose Refer ence Range is dependent on time and content of last meal. Glucose of more than 200 mg/dL in a nonstressed, ambulatory subject supports the diagnosis of Diabetes Mellitus. No Panel InformationOrdered By: Ghanshyam Kaye on 10-27-2021 Bedside Glucose Comment Glu2: cleaned meter [facility] Basophils Auto (Bld) [#/Vol] Ordered By: Chante Narayan on 10-25-2021 Basophils (Bld) [#/Vol] 0.0 10*3/uL 0.0-0.2 [facility] Basophils/100 WBC Auto (Bld) Ordered By: Chante Narayan on 10-25-2021 Basophils/100 WBC (Bld) 0.3 % . F [facility] Blood hemoglobin measurement (mass/volume)Ordered By: Chante Narayan on 10-25-2021 Hemoglobin (Bld) [Mass/Vol] 11.2 g/dL 13.0-17.0 [facility] Blood leukocytes automated c ount (number/volume)Ordered By: Chante Narayan on 10-25-2021 WBC (Bld) [#/Vol] 5.7 10*3/uL 4.5-11.0 [facility] Creatinine and Glomerular fi ltration rate.predicted panel (S/P/Bld)Ordered By: Chante Narayan on 10-25-2021 Creatinine [Mass/Vol] 1.24 mg/dL 0.64-1.27 [facility] Eosinophils Auto (Bld) [#/Vo l]Ordered By: Chante Narayan on 10-25-2021 Eosinophils (Bld) [#/Vol] 0.4 10*3/uL 0.0-0.45 [facility] Eosinophils/100 WBC Auto (Bl d)Ordered By: Chante Narayan on 10-25-2021 Eosinophils/100 WBC (Bld) 6.7 % . [facility] Erythrocyte distribution wid th Auto (RBC) [Ratio]Ordered By: Chante Narayan on 10-25-2021 Erythrocyte distribution width (RBC) [Ratio] 17.6 % 12.0-14.8 [facility] Estimated glomerular filtrat ion rate (GFR) non- AmericanOrdered By: Chante Narayan on 10-25-2021 GFR/1.73 sq M.predicted among non-blacks MDRD (S/P/Bld) [Vol rate/Area] 59 mL/Min [facility] Hematocrit Auto (Bld) [Volum e fraction]Ordered By: Chante Narayan on 10-25-2021 Hematocrit (Bld) [Volume fraction] 33.0 % 38.8-50.0 [facility] Laboratory - Hematology and Cell countsOrdered By: Chante Narayan on 10-25-2021 Nucleated RBC/100 WBC (Bld) [Ratio] 0.1 % 0-0.5 [facility] Lymphocytes Auto (Bld) [#/Vo l]Ordered By: Chante Narayan on 10-25-2021 Lymphocytes (Bld) [#/Vol] 0.5 10*3/uL 1.00-4.8 [facility] Lymphocytes/100 WBC Auto (Bl d)Ordered By: Chante Narayan on 10-25-2021 Lymphocytes/100 WBC (Bld) 9.4 % . [facility] MCH Auto (RBC) [Entitic mass ]Ordered By: Chante Narayan on 10-25-2021 MCH (RBC) [Entitic mass] 29.3 pg 27.5-35.2 [facility] MCHC Auto (RBC) [Mass/Vol]Or dered By: Chante Narayan on 10-25-2021 MCHC (RBC) [Mass/Vol] 33.8 g/dL 32.5-35.6 [facility] MCV Auto (RBC) [Entitic vol] Ordered By: Chante Narayan on 10-25-2021 MCV (RBC) [Entitic vol] 86.7 fL 83.5-101 F [facility] Monocytes Auto (Bld) [#/Vol] Ordered By: Chante Narayan on 10-25-2021 Monocytes (Bld) [#/Vol] 0.8 10*3/uL 0.0-0.8 [facility] Monocytes/100 WBC Auto (Bld) Ordered By: Chante Narayan on 10-25-2021 Monocytes/100 WBC (Bld) 14.5 % . [facility] Neutrophils Auto (Bld) [#/Vo l]Ordered By: Chante Narayan on 10-25-2021 Neutrophils (Bld) [#/Vol] 4.0 10*3/uL 1.8-7.7 [facility] Neutrophils/100 WBC Auto (Bl d)Ordered By: Chante Narayan on 10-25-2021 Neutrophils/100 WBC (Bld) 69.1 % . [facility] No Panel InformationOrdered By: Chante Narayan on 10-25-2021 Estimated GFR () > 60 mL/Min [facility] Comment on above: GFR estimated refere nce range: According to KDOQI guidelines, <60 ml/min/1.73m2 is sufficient to diagnose a patient with chronic kidney disease. Pharmacy Creatinine Clearance (Chem 60.35 [facility] Platelet mean volume Auto (B ld) [Entitic vol]Ordered By: Chante Narayan on 10-25-2021 Platelet mean volume (Bld) [Entitic vol] 8.6 fL 6.6-10.1 [facility] Platelets Auto (Bld) [#/Vol] Ordered By: Chante Narayan on 10-25-2021 Platelets (Bld) [#/Vol] 159 10*3/uL 150-450 [facility] RBC Auto (Bld) [#/Vol]Ordere d By: Chante Narayan on 10-25-2021 RBC (Bld) [#/Vol] 3.81 10*6/uL 3.90-5.60 [facility] Serum or plasma calcium sergei urement (mass/volume)Ordered By: Chante Narayan on 10-25-2021 Calcium [Mass/Vol] 9.1 mg/dL 8.2-10.2 [facility] Serum or plasma chloride zofia surement (moles/volume)Ordered By: Chante Narayan on 10-25-2021 Chloride [Moles/Vol] 102 mmol/L 95-114 [facility] Serum or plasma glucose sergei urement (mass/volume)Ordered By: Chante Narayan on 10-25-2021 Glucose [Mass/Vol] 176 mg/dL 70-100 [facility] Comment on above: ADA recommended refe rence range Random Glucose Reference Range is dependent on time and content of last meal. Glucose of more than 200 mg/dL in a nonstressed, ambulatory subject supports the diagnosis of Diabetes Mellitus. Serum or plasma potassium me asurement (moles/volume)Ordered By: Chante Narayan on 10-25-2021 Potassium [Moles/Vol] 3.6 mmol/L 3.5-5.1 [facility] Serum or plasma sodium measu rement (moles/volume)Ordered By: Chante Narayan on 10-25-2021 Sodium [Moles/Vol] 136 mmol/L 136-146 [facility] Serum or plasma total carbon dioxide measurement (moles/volume)Ordered By: Chante Narayan on 10-25-2021 CO2 [Moles/Vol] 25.8 mmol/L 22.0-30.0 [facility] Serum or plasma urea nitroge n measurement (mass/volume)Ordered By: Chante Narayan on 10-25-2021 Urea nitrogen [Mass/Vol] 32 mg/dL 9-23 [facility] Albumin [Mass/volume] in Ser um or PlasmaOrdered By: Chante Narayan on 10-22-2021 Albumin [Mass/Vol] 3.1 g/dL 3.2-5.5 [facility] Globulin Calc (S) [Mass/Vol] Ordered By: Chante Narayan on 10-22-2021 Globulin (S) [Mass/Vol] 3.0 g/dL [facility] Protein [Mass/volume] in Ser um or PlasmaOrdered By: Chante Narayan on 10-22-2021 Protein [Mass/Vol] 6.1 g/dL 6.1-7.9 [facility] Serum or plasma alanine dasilva otransferase measurement without P-5'-P (enzymatic activiOrdered By: Chante Narayan on 10-22-2021 ALT No additional P-5'-P [Catalytic activity/Vol] 21 U/L 10-60 [facility] Serum or plasma albumin/glob ulin mass ratioOrdered By: Chante Narayan on 10-22-2021 Albumin/Globulin [Mass ratio] 1.0 {ratio} [facility] Serum or plasma alkaline bob sphatase measurement (enzymatic activity/volume)Ordered By: Chante Narayan on 10-22-2021 ALP [Catalytic activity/Vol] 71 U/L 32-92 [facility] Serum or plasma aspartate am inotransferase measurement (enzymatic activity/volume)Ordered By: Chante Narayan on 10-22-2021 AST [Catalytic activity/Vol] 23 U/L 10-42 [facility] Serum or plasma prealbumin m easurement (mass/volume)Ordered By: Chante Narayan on 10-22-2021 Prealbumin [Mass/Vol] 19.4 mg/dL 18.0-38.0 [facility] Serum or plasma total biliru bin measurement (mass/volume)Ordered By: Chante Narayan on 10-22-2021 Bilirubin [Mass/Vol] 1.0 mg/dL 0.3-1.2 [facility] Bacteria identified Anaer cx Nom (Unsp spec)Ordered By: Reddy Brandt on 10-21-2021 Anaerobic microbial culture No Anaerobes Isolated 3 Days [facility] COVID-19 Positive/NegativeOr dered By: Reddy Brandt on 10-21-2021 SARS-CoV-2 (COVID-19) N gene MEREDITH+probe Ql (Resp) Negative Negative [facility] Comment on above: Testing for SARS-CoV -2 by RT-PCR This test was developed and its performance characteristics determined by [employer] ([employer]) and validated at the [facility]. This test has not been FDA cleared [...] Brandt on 10-21-2021 Glucose [Mass/Vol] 298 mg/dL [facility] Comment on above: Random Glucose Refer ence Range is dependent on time and content of last meal. Glucose of more than 200 mg/dL in a nonstressed, ambulatory subject supports the diagnosis of Diabetes Mellitus. No Panel InformationOrdered By: Reddy Brandt on 10-21-2021 Bedside Glucose Comment Glu2: cleaned meter [facility] Bedside Glucose #2 Comment Cleaned meter [facility] ABO and Rh group post transf usion reaction Nom (Bld)Ordered By: Reddy Brandt on 10-19-2021 Microscopic observation Gram stain Nom (Unsp spec) [facility] COVID-19 Positive/NegativeOr dered By: Reddy Brandt on 10-14-2021 SARS-CoV-2 (COVID-19) N gene MEREDITH+probe Ql (Resp) Negative Negative [facility] Comment on above: Testing for SARS-CoV -2 by RT-PCR This test was developed and its performance characteristics determined by [employer] ([employer]) and validated at the [facility]. This test has not been FDA cleared [...] 10-06-2021 Basophils (Bld) [#/Vol] 0.0 10*3/uL 0.0-0.2 [facility] Basophils/100 WBC Auto (Bld) Ordered By: Reddy Brandt on 10-06-2021 Basophils/100 WBC (Bld) 0.6 % . [facility] Blood hemoglobin measurement (mass/volume)Ordered By: Reddy Brandt on 10-06-2021 Hemoglobin (Bld) [Mass/Vol] 13.7 g/dL 13.0-17.0 [facility] Blood leukocytes automated c ount (number/volume)Ordered By: Reddy Brandt on 10-06-2021 WBC (Bld) [#/Vol] 7.8 10*3/uL 4.5-11.0 [facility] Creatinine and Glomerular fi ltration rate.predicted panel (S/P/Bld)Ordered By: Reddy Brandt on 10-06-2021 Creatinine [Mass/Vol] 1.76 mg/dL 0.64-1.27 [facility] Eosinophils Auto (Bld) [#/Vo l]Ordered By: Reddy Brandt on 10-06-2021 Eosinophils (Bld) [#/Vol] 0.4 10*3/uL 0.0-0.45 [facility] Eosinophils/100 WBC Auto (Bl d)Ordered By: Reddy Brandt on 10-06-2021 Eosinophils/100 WBC (Bld) 4.9 % . [facility] Erythrocyte distribution wid th Auto (RBC) [Ratio]Ordered By: Reddy Brandt on 10-06-2021 Erythrocyte distribution width (RBC) [Ratio] 18.8 % 12.0-14.8 [facility] Erythrocyte sedimentation ra te by Photometric methodOrdered By: Reddy Brandt on 10-06-2021 ESR Photometric method (Bld) [Velocity] 21 mm/hr 0-19 [facility] Estimated glomerular filtrat ion rate (GFR) non- AmericanOrdered By: Reddy Brandt on 10-06-2021 GFR/1.73 sq M.predicted among non-blacks MDRD (S/P/Bld) [Vol rate/Area] 39 mL/Min [facility] Glucose mean value [Mass/vol ume] in Blood Estimated from glycated hemoglobinOrdered By: Reddy Brandt on 10-06-2021 Average glucose Estimated from glycated hemoglobin (Bld) [Mass/Vol] 163 mg/dL [facility] Hematocrit Auto (Bld) [Volum e fraction]Ordered By: Reddy Brandt on 10-06-2021 Hematocrit (Bld) [Volume fraction] 41.1 % 38.8-50.0 [facility] Hemoglobin A1c percentageOrd ered By: Reddy Brandt on 10-06-2021 HbA1c (Bld) [Mass fraction] 7.3 % 4.3-5.6 [facility] Comment on above: Increased risk for d iabetes: 5.7 - 6.4 diabetes: >6.4 glycemic control for adults with diabetes: <7.0 Laboratory - Hematology and Cell countsOrdered By: Reddy Brandt on 10-06-2021 Nucleated RBC/100 WBC (Bld) [Ratio] 0.0 % 0-0.5 [facility] Lymphocytes Auto (Bld) [#/Vo l]Ordered By: Reddy Brandt on 10-06-2021 Lymphocytes (Bld) [#/Vol] 0.8 10*3/uL 1.00-4.8 [facility] Lymphocytes/100 WBC Auto (Bl d)Ordered By: Reddy Brandt on 10-06-2021 Lymphocytes/100 WBC (Bld) 10.9 % . [facility] MCH Auto (RBC) [Entitic mass ]Ordered By: Reddy Brandt on 10-06-2021 MCH (RBC) [Entitic mass] 28.8 pg 27.5-35.2 [facility] MCHC Auto (RBC) [Mass/Vol]Or dered By: Reddy Brandt on 10-06-2021 MCHC (RBC) [Mass/Vol] 33.3 g/dL 32.5-35.6 [facility] MCV Auto (RBC) [Entitic vol] Ordered By: Reddy Brandt on 10-06-2021 MCV (RBC) [Entitic vol] 86.3 fL 83.5-101 [facility] Monocytes Auto (Bld) [#/Vol] Ordered By: Reddy Brandt on 10-06-2021 Monocytes (Bld) [#/Vol] 0.9 10*3/uL 0.0-0.8 [facility] Monocytes/100 WBC Auto (Bld) Ordered By: Reddy Brandt on 10-06-2021 Monocytes/100 WBC (Bld) 11.8 % . [facility] Neutrophils Auto (Bld) [#/Vo l]Ordered By: Reddy Brandt on 10-06-2021 Neutrophils (Bld) [#/Vol] 5.6 10*3/uL 1.8-7.7 [facility] Neutrophils/100 WBC Auto (Bl d)Ordered By: Reddy Brandt on 10-06-2021 Neutrophils/100 WBC (Bld) 71.8 % . [facility] No Panel InformationOrdered By: Reddy Brandt on 10-06-2021 Estimated GFR () 48 mL/Min [facility] Comment on above: GFR estimated refere nce range: According to KDOQI guidelines, <60 ml/min/1.73m2 is sufficient to diagnose a patient with chronic kidney disease. Pharmacy Creatinine Clearance (Chem N/A [facility] Platelet mean volume Auto (B ld) [Entitic vol]Ordered By: Reddy Brandt on 10-06-2021 Platelet mean volume (Bld) [Entitic vol] 9.1 fL 6.6-10.1 [facility] Platelets Auto (Bld) [#/Vol] Ordered By: Reddy Brandt on 10-06-2021 Platelets (Bld) [#/Vol] 131 10*3/uL 150-450 [facility] RBC Auto (Bld) [#/Vol]Ordere d By: Reddy Brandt on 10-06-2021 RBC (Bld) [#/Vol] 4.77 10*6/uL 3.90-5.60 [facility] Serum or plasma C reactive p rotein measurement (mass/volume)Ordered By: Reddy Brandt on 10-06-2021 CRP [Mass/Vol] 0.5 mg/dL 0.0-1.0 [facility] Serum or plasma chloride zofia surement (moles/volume)Ordered By: Reddy Brandt on 10-06-2021 Chloride [Moles/Vol] 93 mmol/L 95-114 [facility] Serum or plasma potassium me asurement (moles/volume)Ordered By: Reddy Brandt on 10-06-2021 Potassium [Moles/Vol] 3.8 mmol/L 3.5-5.1 [facility] Serum or plasma sodium measu rement (moles/volume)Ordered By: Reddy Brandt on 10-06-2021 Sodium [Moles/Vol] 139 mmol/L 136-146 [facility] Serum or plasma total carbon dioxide measurement (moles/volume)Ordered By: Reddy Brandt on 10-06-2021 CO2 [Moles/Vol] 31.4 mmol/L 22.0-30.0 [facility] Serum or plasma urea nitroge n measurement (mass/volume)Ordered By: Reddy Brandt on 10-06-2021 Urea nitrogen [Mass/Vol] 52 mg/dL 9-23 [facility] WOUND CULTUREon 09-12-2021 Bacteria identified Aer cx Nom (Unsp spec) Final report Normal [facility] Comment on above: Performed By: #### C XWND ####[facility] [address] [place] [address]Dr. Anjali Reagan Result 1 Mixed skin areli Normal [facility] Comment on above: Performed By: #### C XWND ####[facility] [address] [place] [address]Dr. Anjali Reagan CBC AUTO DIFFon 09-09-2021 BASO # 0.0 103/ul Normal 0.0-0.1 [facility] Comment on above: Performed By: #### C BC ####[facility] [address] [place], [place] [address]Dr. Anjali Reagan Basophils/100 WBC (Bld) 0.6 % Normal 0.2-2.0 [facility] Comment on above: Performed By: #### C BC ####[facility] Evot[address] [place], [place] [address]Dr. Anjali Reagan EO # 0.3 103/ul Normal 0.0-0.7 [facility] Comment on above: Performed By: #### C BC ####[facility] Nxtvct[address] [place], [place] [address]Dr. Anjali Reagan Eosinophils/100 WBC (Bld) 4.1 % Normal 0.9-7.0 [facility] Comment on above: Performed By: #### C BC ####[facility] Lokxyty[address] [place], [place] [address]Dr. Anjali Reagan Erythrocyte distribution width (RBC) [Ratio] 16.1 % Critically high 11.0-15.0 [facility] Comment on above: Performed By: #### C BC ####[facility] [address] [place], [place] [address]Dr. Anjali Reagan Hematocrit (Bld) [Volume fraction] 38.3 % Critically low 42.0-54.0 [facility] Comment on above: Performed By: #### C BC ####[facility] Meab[address]bi[address] [place], [place] [address]Dr. Anjali Reagan Hemoglobin (Bld) [Mass/Vol] 12.0 g/dL Critically low 14.0-18.0 [facility] Comment on above: Performed By: #### C BC ####[facility] [address] [place] [address]Dr. Anjali Reagan IG # 0.04 10e3/ul Critically high 0.00-0.03 [facility] Comment on above: Performed By: #### C BC ####[facility] [address] [place] [address]Dr. Anjali Reagan IG % 0.6 % Critically high 0.0-0.5 [facility] Comment on above: Performed By: #### C BC ####[facility] [address] [place] [address]Dr. Biancaramona Tez LYMPH # 0.9 103/ul Critically low 1.2-3.8 [facility] Comment on above: Performed By: #### C BC ####[facility] [address] [place] [address]Dr. Anjali Reagan Lymphocytes/100 WBC (Bld) 12.6 % Critically low 20.5-60.0 [facility] Comment on above: Performed By: #### C BC ####[facility] [address] [place] [address]Dr. Biancaramona Reagan MANUAL DIFF REQ NO Normal [facility] Comment on above: Performed By: #### C BC ####[facility] [address] [place] [address]Dr. Anjali Reagan MCH (RBC) [Entitic mass] 27.5 pg Normal 25.9-34.0 [facility] Comment on above: Performed By: #### C BC ####[facility] [address] [place] [address]Dr. Anjali Tez MCHC (RBC) [Mass/Vol] 31.3 g/dL Normal 29.9-35.2 [facility] Comment on above: Performed By: #### C BC ####[facility] Gty[address] [place], [place] [address]Dr. Anjali Tez MCV (RBC) [Entitic vol] 87.6 fL Normal 80.0-94.0 [facility] Comment on above: Performed By: #### C BC ####[facility] [address] [place] [id number]. Anjali Reagan MONO # 0.7 103/ul Normal 0.3-0.8 [facility] Comment on above: Performed By: #### C BC ####[facility] [address] [place] [id number]. Anjali Reagan Monocytes/100 WBC (Bld) 10.3 % Normal 1.7-12.0 [facility] Comment on above: Performed By: #### C BC ####[facility] [address] [place] [id number]. Anjali Reagan NEUT # 5.1 103/ul Normal 1.4-6.5 [facility] Comment on above: Performed By: #### C BC ####[facility] [address] [place] [phone]. Anjali Reagan Neutrophils/100 WBC (Bld) 71.8 % Normal 43.0-75.0 [facility] Comment on above: Performed By: #### C BC ####[facility] [address] [place] [id number]. Anjali Reagan Platelet mean volume (Bld) [Entitic vol] 9.4 fL Critically low 9.5-13.5 [facility] Comment on above: Performed By: #### C BC ####[facility] [address] [place] [id number]. Anjali Reagan PLT 249 103/ul Normal 150-450 [facility] Comment on above: Performed By: #### C BC ####[facility] [address] [place] [phone]. Anjali Reagan RBC 4.37 106/ul Critically low 4.70-6.10 [facility] Comment on above: Performed By: #### C BC ####[facility] [address] [place] [id number]. Anjali Reagan WBC 7.1 103/ul Normal 4.0-11.0 [facility] Comment on above: Performed By: #### C BC ####[facility] [address] [place] [id number]. Anjali Reagan CRPon 09-09-2021 CRP 1.9 mg/dL Critically high <=1.0 [facility] Comment on above: Performed By: #### C RP, CMP ####[facility] [address] [place] [address]Dr. Anjali Reagan GRAM STAINon 09-09-2021 COMMENTS NO ORGANISMS OBSERVED Normal [facility] Comment on above: Performed By: #### G STAIN ####[facility] [address] [place] [address]Dr. Anjali Reagan DIPHTHEROIDS Normal [facility] Comment on above: Performed By: #### G STAIN ####[facility] [address] [place], [place] [address]Dr. Anjali Reagan EPITHELIALS Normal [facility] Comment on above: Performed By: #### G STAIN ####[facility] [address]pr[address]ch[address] [place], [place] [address]Dr. Anjali Reagan FUNGAL ELEMENTS Normal [facility] Comment on above: Performed By: #### G STAIN ####[facility] [address] [place], [place] [address]Dr. Anjali Reagan GRAM NEG BACILLI Normal [facility] Comment on above: Performed By: #### G STAIN ####[facility] Sthyymit[address] [place], [place] [address]Dr. Anjali Reagan GRAM NEG DIPPLOCOCCI Normal [facility] Comment on above: Performed By: #### G STAIN ####[facility] [address] [place], [place] [address]Dr. Anjali Reagan GRAM POS BACILLI Normal [facility] Comment on above: Performed By: #### G STAIN ####[facility] [address] [place] [address]Dr. Anjali Reagan GRAM POSITIVE COCCI Normal [facility] Comment on above: Performed By: #### G STAIN ####[facility] X[address]et[address] [place], [place] [address]Dr. Anjali Reagan GRAM STAIN SOURCE Left foot lateral Normal [facility] Comment on above: Performed By: #### G STAIN ####[facility] [address] [place] [address]Dr. Anjali Reagan GS_DIPTH Normal [facility] Comment on above: Performed By: #### G STAIN ####[facility] [address] [place] [address]Dr. Anjali Reagan WBC RARE Normal [facility] Comment on above: Performed By: #### G STAIN ####[facility] [address] [place] [address]Dr. Anjali Reagan PROF 14(COMP METB)on 022 Albumin [Mass/Vol] 3.5 g/dL Normal 3.4-5.0 [facility] Comment on above: Performed By: #### C RP, CMP ####[facility] Opjzbabzzq[address] [place], [place] [address]Dr. Anjali Reagan Albumin/Globulin [Mass ratio] 0.8 {ratio} Normal [facility] Comment on above: Performed By: #### C RP, CMP ####[facility] I[address]bnks[address]wp[address] [place], [place] [address]Dr. Anjali Reagan ALP [Catalytic activity/Vol] 136 U/L Critically high 46-116 [facility] Comment on above: Performed By: #### C RP, CMP ####[facility] [address] [place] [address]Dr. Anjali Reagan ALT [Catalytic activity/Vol] 34 U/L Normal 16-63 [facility] Comment on above: Performed By: #### C RP, CMP ####[facility] [address] [place] [address]Dr. Anjali Reagan Anion gap [Moles/Vol] 12.9 mmol/L Normal [facility] Comment on above: Performed By: #### C RP, CMP ####[facility] Qef[address]mc[address] [place], [place] [address]Dr. Anjali Reagan AST [Catalytic activity/Vol] 27 U/L Normal 15-37 [facility] Comment on above: Performed By: #### C RP, CMP ####[facility] Omjw[address]rojt[address] [place], [place] [address]Dr. Anjali Reagan Bilirubin [Mass/Vol] 0.4 mg/dL Normal 0.2-1.0 [facility] Comment on above: Performed By: #### C RP, CMP ####[facility] Qbrjx[address]xys[address] [place], [place] [address]Dr. Anjali Reagan Calcium [Mass/Vol] 9.7 mg/dL Normal 8.5-10.1 [facility] Comment on above: Performed By: #### C RP, CMP ####[facility] [address] [place], [place] [address]Dr. Anjali Reagan Chloride [Moles/Vol] 103 mmol/L Normal 98-107 [facility] Comment on above: Performed By: #### C RP, CMP ####[facility] [address]wt[address] [place], [place] [address]Dr. Anjali Reagan CO2 [Moles/Vol] 28.9 mmol/L Normal 21.0-32.[address] [facility] Comment on above: Performed By: #### C RP, CMP ####[facility] [address] [place], [place] [address]Dr. Anjali Reagan Creatinine [Mass/Vol] 1.57 mg/dL Critically high 0.70-1.30 [facility] Comment on above: Performed By: #### C RP, CMP ####[facility] [address]cl[address] [place], [place] [address]Dr. Anjali Reagan EGFR-AF [place] 54 mL/min/1.73m2 Critically low >=60 [facility] Comment on above: Performed By: #### C RP, CMP ####[facility] [address] [place], [place] [address]Dr. Anjali Reagan EGFR-NON AF [place] 45 mL/min/1.73m2 Critically low >=60 [facility] Comment on above: Performed By: #### C RP, CMP ####[facility] [address] [place], [place] [address]Dr. Anjali Reagan Globulin (S) [Mass/Vol] 4.5 g/dL Normal [facility] Comment on above: Performed By: #### C RP, CMP ####[facility] [address] [place] [id number]. Anjali Reagan Glucose [Mass/Vol] 174 mg/dL Critically high 74-106 [facility] Comment on above: Performed By: #### C RP, CMP ####[facility] Z[address] [place] [phone]. Anjali Reagan Potassium [Moles/Vol] 4.8 mmol/L Normal 3.5-5.1 [facility] Comment on above: Performed By: #### C RP, CMP ####[facility] [address] [place] [phone]. Anjali Reagan Protein [Mass/Vol] 8.0 g/dL Normal 6.4-8.2 [facility] Comment on above: Performed By: #### C RP, CMP ####[facility] [address] [place] [address]Dr. Anjali Reagan Sodium [Moles/Vol] 140 mmol/L Normal 136-145 [facility] Comment on above: Performed By: #### C RP, CMP ####[facility] [address] [place] [address]Dr. Anjali Reagan Urea nitrogen [Mass/Vol] 34.0 mg/dL Critically high 7.0-18 .0 [facility] Comment on above: Performed By: #### C RP, CMP ####[facility] [address]esui[address] [place], [place] [address]Dr. Anjali Reagan Urea nitrogen/Creatinine [Mass ratio] 21.7 mg/mg [facility] Comment on above: Performed By: #### C RP, CMP ####[facility] [facility] [address]heogsji[address] [place] [address]Dr. Anjali Reagan XR FOOT RT MIN 3 VIEWSon XR FOOT RT MIN 3 VIEWS Normal [facility] XR ANKLE RT MIN 3 VIEWSon XR ANKLE RT MIN 3 VIEWS Normal [facility] CULTURE BLOODon 08-26-2021 Microscopic examination of blood, culture Culture Observations: NO GROWTH AT 5 DAYS. Normal [facility] Comment on above: Performed By: #### B LDCX2 ####[facility] Opilmlutwh[address] [place], [place] [address]Dr. Anjali Reagan Microscopic examination of blood, culture Culture Observations: NO GROWTH AT 5 DAYS. Normal [facility] Comment on above: Performed By: #### B LDCX1 ####[facility] Swtyvbgrbb65[address] [place], [place] [address]Dr. Anjali Reagan PREALBUMINon 08-26-2021 Prealbumin [Mass/Vol] 14 mg/dL Normal 10-36 [facility] Comment on above: Performed By: #### P REALBL ####[facility] Zcsseavpdj56[address] [place], [place] [address]Dr. Anjali Reagan CBC W MANUAL DIFFon 08-25-19 ANISOCYTOSIS SLIGHT Normal [facility] Comment on above: Performed By: #### C CORI ####[facility] Rcxyojymsz[address] [place], [place] [address]Dr. Anjali Reagan ATYPICAL LYMPH # Normal [facility] Comment on above: Performed By: #### C CORI ####[facility] Xrtgsrscre884[address] [place], [place] [address]Dr. Anjali Reagan ATYPICAL LYMPH % Normal [facility] Comment on above: Performed By: #### C CORI ####[facility] Kbtozmrgdj528[address] [place], [place] [address]Dr. Anjali Reagan BAND # Normal 0.0-0.3 [facility] Comment on above: Performed By: #### C CORI ####[facility] Putnsfduyz29[address] [place], [place] [address]Dr. Anjali Reagan BAND % Normal 0-5 [facility] Comment on above: Performed By: #### C CORI ####[facility] Xwvukebswj706[address] [place], [place] [address]Dr. Anjali Reagan BASOM # 0.00 103/ul Normal 0.00-0.10 [facility] Comment on above: Performed By: #### C CORI ####[facility] Yjnpqidrbv02[address] [place], [place] [address]Dr. Anjali Reagan BASOM % 0.0 % Critically low 0.2-2.0 [facility] Comment on above: Performed By: #### C CORI ####[facility] [address]se[address]uyfex[address] [place] [address]Dr. Anjali Reagan BLAST # Normal [facility] Comment on above: Performed By: #### C CORI ####[facility] Uidbzzhecw1443 [place] [id number]. Anjali Reagan BLAST % Normal [facility] Comment on above: Performed By: #### C CORI ####[facility] Caxyhogbqe40[address] [place] [address]Dr. Anjali Reagan CORRECTED WBC Normal 4.0-11.0 [facility] Comment on above: Performed By: #### C CORI ####[facility] Gstykheefl95[address] [place] [address]Dr. Anjali Reagan EOS # 0.34 103/ul Normal 0.00-0.70 [facility] Comment on above: Performed By: #### C CORI ####[facility] Zudkvboqfj230[address] [place], [place] [address]Dr. Anjali Reagan EOS% 3.0 % Normal 0.9-7.0 [facility] Comment on above: Performed By: #### C CORI ####[facility] Lxpgkdwzln2967 [place] [address]Dr. Anjali Reagan HCT 36.2 % Critically low 42.0-54.0 [facility] Comment on above: Performed By: #### C CORI ####[facility] Ljsspwvmmr6126 [place] [address]Dr. Anjali Reagan HGB 11.8 g/dl Critically low 14.0-18.0 [facility] Comment on above: Performed By: #### C CORI ####[facility] Tfgicydggl8[address] [place], [place] [address]Dr. Anjali Reagan LYMPHM # 1.03 103/ul Critically low 1.20-3.80 [facility] Comment on above: Performed By: #### C CORI ####[facility] Qhhuaewtdw0578 [place] [id number]. Anjali Reagan LYMPHM% 9.0 % Critically low 20.5-60.0 [facility] Comment on above: Performed By: #### C CORI ####[facility] Gbyvpoqkjg3065 [place] [id number]. Anjali Reagan MCH 28.0 pg Normal 25.9-34.0 [facility] Comment on above: Performed By: #### C CORI ####[facility] Amafryixbo6834 [place] [phone]. Anjali Reagan MCHC 32.6 g/dl Normal 29.9-35.2 [facility] Comment on above: Performed By: #### C CORI ####[facility] Aypzvlbplk60[address] [place] [address]Dr. Anjali Reagan MCV 85.8 fL Normal 80.0-94.0 [facility] Comment on above: Performed By: #### C CORI ####[facility] Hxyubhsxus529[address] [place], [place] [address]Dr. Anjali Reagan METAMYELOCYTE # Normal [facility] Comment on above: Performed By: #### C CORI ####[facility] Ufuymikhbq4064[address] [place], [place] [address]Dr. Anjali Reagan METAMYELOCYTE % Normal [facility] Comment on above: Performed By: #### C CORI ####[facility] Kjiflfcduj84[address] [place] [address]Dr. Anjali Reagan MONOM# 1.61 103/ul Critically high 0.30-0.80 [facility] Comment on above: Performed By: #### C CORI ####[facility] Qdylhklvmj6240 [place] [phone]. Anjali Reagan MONOM% 14.0 % Critically high 1.7-12.0 [facility] Comment on above: Performed By: #### C CORI ####[facility] Tetdivrpvo7678 [place] [phone]. Anjali Reagan MPV 8.9 fL Critically low 9.5-13.5 [facility] Comment on above: Performed By: #### C BCFIONA ####[facility] Vnywxxfezs89[address] [place], [place] [address]Yw. Anjali Reagan MYELOCYTE # Normal [facility] Comment on above: Performed By: #### C BCFIONA ####[facility] Dukcfvoaqr1806 [place], [place] [address]Ux. Anjali Reagan MYELOCYTE % Normal [facility] Comment on above: Performed By: #### C BCFIONA ####[facility] Epgtdcsogq[address] [place], [place] [address]Xn. Anjali Reagan NRBC Normal [facility] Comment on above: Performed By: #### C CORI ####[facility] Focqqtxpom3359 [place] [id number]. Anjali Reagan PLT 263 103/ul Normal 150-450 [facility] Comment on above: Performed By: #### C CORI ####[facility] Fmpdtzggjj0500 [place] [phone]. Anjali Reagan RBC 4.22 106/ul Critically low 4.70-6.10 [facility] Comment on above: Performed By: #### C CORI ####[facility] Vdkcegfbrx3820 [place] [phone]. Anjali Reagan RDW 16.0 % Critically high 11.0-15.0 [facility] Comment on above: Performed By: #### C CORI ####[facility] Wyiabgitzu7205 [place] [phone]. Anjali Reagan SEG # 8.51 103/ul Critically high 1.40-6.50 [facility] Comment on above: Performed By: #### C BCFIONA ####[facility] Ymlkpaeuuj6432 [place] [phone]. Anjali Reagan SEG % 74.0 % Normal 43.0-75.0 [facility] Comment on above: Performed By: #### C BCFIONA ####[facility] Ebdawhbhtf2247 [place], [place] [address]Fc. Anjali Reagan WBC 11.5 103/ul Critically high 4.0-11.0 [facility] Comment on above: Performed By: #### C BCMAN ####[facility] Yjkojtwoiy2404 [place] [address]Dr. Anjali Reagan CRPon 08-24-2021 CRP 11.6 mg/dL Critically high <=1.0 [facility] Comment on above: Performed By: #### C RP, CMP ####[facility] Plscbjqbya7136 [place] [address]Dr. Anjali Reagan PROF 14(COMP METB)on 022 Albumin [Mass/Vol] 3.2 g/dL Critically low 3.4-5.0 [facility] Comment on above: Performed By: #### C RP, CMP ####[facility] Vzbdtwccsk[address] [place], [place] [address]Dr. Anjali Reagan Albumin/Globulin [Mass ratio] 0.7 {ratio} Normal [facility] Comment on above: Performed By: #### C RP, CMP ####[facility] Awxetuxwdf045[address] [place], [place] [address]Dr. Anjali Reagan ALP [Catalytic activity/Vol] 107 U/L Normal 46-116 [facility] Comment on above: Performed By: #### C RP, CMP ####[facility] Jpdmnhtefc65[address] [place], [place] [address]Dr. Anjali Reagan ALT [Catalytic activity/Vol] 57 U/L Normal 16-63 [facility] Comment on above: Performed By: #### C RP, CMP ####[facility] Bfeqdsgjvk07[address] [place], [place] [address]Dr. Anjali Reagan Anion gap [Moles/Vol] 13.7 mmol/L Normal [facility] Comment on above: Performed By: #### C RP, CMP ####[facility] Gdqheyobco[address] [place], [place] [address]Dr. Anjali Reagan AST [Catalytic activity/Vol] 40 U/L Critically high 15-37 [facility] Comment on above: Performed By: #### C RP, CMP ####[facility] Irukgftszc638[address] [place], [place] [address]Dr. Anjali Reagan Bilirubin [Mass/Vol] 0.6 mg/dL Normal 0.2-1.0 [facility] Comment on above: Performed By: #### C RP, CMP ####[facility] Viztcyjvdi[address] [place], [place] [address]Dr. Anjali Reagan Calcium [Mass/Vol] 9.7 mg/dL Normal 8.5-10.1 [facility] Comment on above: Performed By: #### C RP, CMP ####[facility] Drtxyrtkho298[address] [place], [place] [address]Dr. Anjali Reagan Chloride [Moles/Vol] 98 mmol/L Normal 98-107 [facility] Comment on above: Performed By: #### C RP, CMP ####[facility] Gkbiiiehse[address] [place], [place] [address]Dr. Anjali Reagan CO2 [Moles/Vol] 30.0 mmol/L Normal 21.0-32.[address] [facility] Comment on above: Performed By: #### C RP, CMP ####[facility] Alfpgzuqbx608[address] [place], [place] [address]Dr. Anjali Reagan Creatinine [Mass/Vol] 1.73 mg/dL Critically high 0.70-1.30 [facility] Comment on above: Performed By: #### C RP, CMP ####[facility] Todseoaifo27[address] [place], [place] [address]Dr. Anjali Reagan EGFR-AF [place] 49 mL/min/1.73m2 Critically low >=60 [facility] Comment on above: Performed By: #### C RP, CMP ####[facility] Asmjbmlnvd07[address] [place], [place] [address]Dr. Anjali Reagan EGFR-NON AF [place] 40 mL/min/1.73m2 Critically low >=60 [facility] Comment on above: Performed By: #### C RP, CMP ####[facility] Onuadvugdq8038[address] [place], [place] [address]Dr. Anjali Reagan Globulin (S) [Mass/Vol] 4.7 g/dL Normal [facility] Comment on above: Performed By: #### C RP, CMP ####[facility] Qqnfuoyhne8270 [place] [address]Dr. Anjali Reagan Glucose [Mass/Vol] 92 mg/dL Normal 74-106 [facility] Comment on above: Performed By: #### C RP, CMP ####[facility] Xzjweflqte6286 [place] [address]Dr. Anjali Reagan Potassium [Moles/Vol] 3.7 mmol/L Normal 3.5-5.1 [facility] Comment on above: Performed By: #### C RP, CMP ####[facility] Vdzpyhoden0530 [place] [address]Dr. Anjali Reagan Protein [Mass/Vol] 7.9 g/dL Normal 6.4-8.2 [facility] Comment on above: Performed By: #### C RP, CMP ####[facility] Idncicwwfl[address] [place], [place] [address]Dr. Anjali Reagan Sodium [Moles/Vol] 138 mmol/L Normal 136-145 [facility] Comment on above: Performed By: #### C RP, CMP ####[facility] Ulniynhsfh034[address] [place], [place] [address]Dr. Anjali Reagan Urea nitrogen [Mass/Vol] 50.0 mg/dL Critically high 7.0-18 .0 [facility] Comment on above: Performed By: #### C RP, CMP ####[facility] Mykecignlc[address] [place], [place] [address]Dr. Anjali Reagan Urea nitrogen/Creatinine [Mass ratio] 28.9 mg/mg Normal [facility] Comment on above: Performed By: #### C RP, CMP ####[facility] Mexukesnmr7561 [place] [address]Dr. Anjali Reagan SED RATE [facility] 2021 SED RATE 17 mm/hr Normal <=20 [facility] Comment on above: Performed By: #### S EDR ####[facility] Dkrguomcqc6[address] [place], [place] [address]Dr. Anjali Reagan CBC (INCLUDES DIFF/PLT)on Basophils (Bld) [#/Vol] 0.034 10*3/uL Normal 0-200 [facility] Comment on above: Performed By: #### 6 399, 496, 718, 77374 #### [facility] [place] [address] Answerer: Juan Meraz MD Basophils/100 WBC (Bld) 0.3 % Normal [facility] Comment on above: Performed By: #### 6 399, 496, 718, 67379 #### [facility] [place] [address] Answerer: Juan Meraz MD Eosinophils (Bld) [#/Vol] 0.023 10*3/uL Normal 15-500 [facility] Comment on above: Performed By: #### 6 399, 496, 718, 35253 #### [facility] of [place] [address] Answerer: Juan Meraz MD Eosinophils/100 WBC (Bld) 0.2 % Normal [facility] Comment on above: Performed By: #### 6 399, 496, 718, 73748 #### [facility] of [place] [address] Answerer: Juan Meraz MD Erythrocyte distribution width (RBC) [Ratio] 15.6 % High 11.0-15.0 [facility] Comment on above: Performed By: #### 6 399, 496, 718, 23094 #### [facility] [place] [address] Answerer: Juan Meraz MD Hematocrit (Bld) [Volume fraction] 38.9 % Normal 38.5-50.0 [facility] Comment on above: Performed By: #### 6 399, 496, 718, 99168 #### [facility] of [place] [address] Answerer: Juan Meraz MD Hemoglobin (Bld) [Mass/Vol] 12.7 g/dL Low 13.2-17.1 [facility] Comment on above: Performed By: #### 6 399, 496, 718, 81196 #### [facility] of [place] [address] Answerer: Juan Meraz MD Lymphocytes (Bld) [#/Vol] 0.531 10*3/uL Low 850-3900 [facility] Comment on above: Performed By: #### 6 399, 496, 718, 87720 #### [facility] [place] [address] Answerer: Juan Meraz MD Lymphocytes/100 WBC (Bld) 4.7 % Normal [facility] Comment on above: Performed By: #### 6 399, 496, 718, 65922 #### [facility] [place] [address] Answerer: Juan Meraz MD MCH (RBC) [Entitic mass] 28.2 pg Normal 27.0-33.0 [facility] Comment on above: Performed By: #### 6 399, 496, 718, 03931 #### [facility] [place] [address] Answerer: Juan Meraz MD MCHC (RBC) [Mass/Vol] 32.6 g/dL Normal 32.0-36.[address] [facility] Comment on above: Performed By: #### 6 399, 496, 718, 54870 #### [facility] [place] [address] Answerer: Juan Meraz MD MCV (RBC) [Entitic vol] 86.4 fL Normal 80.0-100.0 [facility] Comment on above: Performed By: #### 6 399, 496, 718, 99061 #### [facility] [place] [address] Answerer: Juan Meraz MD Monocytes (Bld) [#/Vol] 1.119 10*3/uL High 200-950 [facility] Comment on above: Performed By: #### 6 399, 496, 718, 41838 #### [facility] [place] [address] Answerer: Juan Meraz MD Monocytes/100 WBC (Bld) 9.9 % Normal [facility] Comment on above: Performed By: #### 6 399, 496, 718, 79810 #### [facility] [place] [address] Answerer: Juan Meraz MD Neutrophils (Bld) [#/Vol] 9.594 10*3/uL High 3451-0486 [facility] Comment on above: Performed By: #### 6 399, 496, 718, 52483 #### [facility] [place] [address] Answerer: Juan Meraz MD Neutrophils/100 WBC (Bld) 84.9 % Normal [facility] Comment on above: Performed By: #### 6 399, 496, 718, 93195 #### [facility] [place] [address] Answerer: Juan Meraz MD Platelet mean volume (Bld) [Entitic vol] 10.1 fL Normal 7.5-12.5 [facility] Comment on above: Performed By: #### 6 399, 496, 718, 67207 #### [facility] [place] [address] Answerer: Juan Meraz MD Platelets (Bld) [#/Vol] 267 10*3/uL Normal 140-400 [facility] Comment on above: Performed By: #### 6 399, 496, 718, 78406 #### [facility] [place] [address] Answerer: Juan Meraz MD RBC (Bld) [#/Vol] 4.50 10*6/uL Normal 4.20-5.80 [facility] Comment on above: Performed By: #### 6 399, 496, 718, 81295 #### [facility] [address], [address] [place] [address] Answerer: Juan Meraz MD WBC (Bld) [#/Vol] 11.3 10*3/uL High 3.8-10.8 [facility] Comment on above: Performed By: #### 6 399, 496, 718, 74279 #### [facility] [address], [address] [place] [address] Answerer: Juan Meraz MD HEMOGLOBIN A1con 08-23-2021 HEMOGLOBIN [...] Performed By: #### 6 399, 496, 718, 94040 #### [facility] [address], [address] [place] [address] Answerer: Juan Meraz MD PHOSPHATE ( PHOSPHORUS)on 08-23-2021 Phosphate [Mass/Vol] 3.7 mg/dL Normal 2.5-4.5 [facility] Comment on above: Order Comment: PATIE NT UNABLE TO VOID; ADVISED TO RETURN FOR COLLECTION. Performed By: #### 6 399, 496, 718, 00378 #### [facility] [place] [address] Answerer: Juan Meraz MD PTH, INTACT WITHOUT CALCIUMo [...] Performed By: #### 6 399, 496, 718, 99474 #### [facility] [place] [address] [facility], [address] [place] [address] Answerer: Juan Meraz MD VITAMIN D,25-OH,TOTAL,IAon 0 08-23-2021 [...] D, (D2,D3), LC/MS/MS is recommended: order code 41235 (patients >2yrs). See Note 1 Note 1 For additional information, please refer to http://education.Pili Pop/faq/HZL882 (This link is being provided for informational/ educational purposes only.) Performed By: #### 6 399, 496, 718, 82992 #### [facility] [address], [address] [place] [address] Answerer: Juan Meraz MD CBC W MANUAL DIFFon 07-06-19 22 ATYPICAL LYMPH # Normal [facility] Comment on above: Performed By: #### Uzair PERSAUD ####[facility] Qqwtpotbjq4324 [place] [id number]. Anjali Reagan ATYPICAL LYMPH % Normal [facility] Comment on above: Performed By: #### Uzair PERSAUD ####[facility] Uqcwzyyymd2620 [place], [place] [address]Xu. Anjali Reagan BAND # 0.1 103/ul Normal 0.0-0.3 [facility] Comment on above: Performed By: #### C BCMAN ####[facility] Nhzcyaktnv4959 [place] [phone]. Anjali Reagan BAND % 1 % Normal 0-5 [facility] Comment on above: Performed By: #### C BCMAN ####[facility] Nqaskngxsb8833 [place] [phone]. Anjali Reagan BASOM # 0.00 103/ul Normal 0.00-0.10 [facility] Comment on above: Performed By: #### C BCMAN ####[facility] Drqvombocx9642 [place] [address]Dr. Anjali Reagan BASOM % 0.0 % Critically low 0.2-2.0 [facility] Comment on above: Performed By: #### C BCMAN ####[facility] Ehfamloemi[address] [place] [address]Dr. Anjali Reagan BLAST # Normal [facility] Comment on above: Performed By: #### C BCFIONA ####[facility] Gbmexqdjkn[address] [place], [place] [address]Dr. Yiramona Reagan BLAST % Normal [facility] Comment on above: Performed By: #### C BCFIONA ####[facility] Upbgvoxngr04[address] [place] [address]Dr. Anjali Reagan CORRECTED WBC Normal 4.0-11.0 [facility] Comment on above: Performed By: #### C BCFIONA ####[facility] Aqessfgumf77[address] [place] [address]Dr. Anjali Reagan EOS # 0.16 103/ul Normal 0.00-0.70 [facility] Comment on above: Performed By: #### C BCMAN ####[facility] Qqvbjvsrzl[address] [place], [place] [address]Dr. Anjali Reagan EOS% 2.0 % Normal 0.9-7.0 [facility] Comment on above: Performed By: #### C BCMAN ####[facility] Dntfztaphs1831 [place] [address]Dr. Anjali Reagan HCT 35.3 % Critically low 42.0-54.0 [facility] Comment on above: Performed By: #### C CORI ####[facility] Ynduifdcrt1706 [place] [id number]. Anjali Reagan HGB 11.4 g/dl Critically low 14.0-18.0 [facility] Comment on above: Performed By: #### C CORI ####[facility] Cvkioaelap6688 [place] [phone]. Anjali Reagan LYMPHM # 0.70 103/ul Critically low 1.20-3.80 [facility] Comment on above: Performed By: #### C CORI ####[facility] Adlwmxumzp4417 [place] [phone]. Anjali Reagan LYMPHM% 9.0 % Critically low 20.5-60.0 [facility] Comment on above: Performed By: #### C CORI ####[facility] Zvqhvpatgs2520 [place] [phone]. Anjali Reagan MCH 27.5 pg Normal 25.9-34.0 [facility] Comment on above: Performed By: #### C CORI ####[facility] Sjslnrbcli0382 [place] [phone]. Anjali Reagan MCHC 32.3 g/dl Normal 29.9-35.2 [facility] Comment on above: Performed By: #### C CORI ####[facility] Ussmtcuvnx6424 [place] [phone]. Anjali Reagan MCV 85.3 fL Normal 80.0-94.0 [facility] Comment on above: Performed By: #### C CORI ####[facility] Cdgutnjzxo9516 [place] [phone]. Anjali Reagan METAMYELOCYTE # Normal [facility] Comment on above: Performed By: #### C CORI ####[facility] Wpyfiklhoe0771 [place] [phone]. Anjali Reagan METAMYELOCYTE % Normal [facility] Comment on above: Performed By: #### Uzair PERSAUD ####[facility] Zvmtobkoqn7894 [place] [phone]. Anjali Reagan MONOM# 1.09 103/ul Critically high 0.30-0.80 [facility] Comment on above: Performed By: #### C CORI ####[facility] Ooxzdnjvbn6527 [place] [phone]. Anjali Reagan MONOM% 14.0 % Critically high 1.7-12.0 [facility] Comment on above: Performed By: #### C CORI ####[facility] Bevvihymim8809 [place] [phone]. Anjali Reagan MPV 9.6 fL Normal 9.5-13.5 [facility] Comment on above: Performed By: #### C CORI ####[facility] Obxxlfdilf9131 [place] [address]Dr. Anjali Reagan MYELOCYTE # Normal [facility] Comment on above: Performed By: #### C CORI ####[facility] Kjwoyrsuxd4481 [place] [phone]. Anjali Reagan MYELOCYTE % Normal [facility] Comment on above: Performed By: #### C CORI ####[facility] Vnfjsudtgw6189 [place] [address]Dr. Anjali Reagan NRBC Normal [facility] Comment on above: Performed By: #### C CORI ####[facility] Inmdrdxlmp3606 [place], [place] [address]Jj. Anjali Reagan PLT 119 103/ul Critically low 150-450 [facility] Comment on above: Performed By: #### C CORI ####[facility] Tnewhthbvs5308 [place] [id number]. Anjali Reagan RBC 4.14 106/ul Critically low 4.70-6.10 [facility] Comment on above: Performed By: #### C CORI ####[facility] Azbviwbrvd9194 [place] [id number]. Anjali Reagan RDW 16.1 % Critically high 11.0-15.0 [facility] Comment on above: Performed By: #### C CORI ####[facility] Zdvfxsgsit9277 [place] [phone]. Anjali Reagan SEG # 5.77 103/ul Normal 1.40-6.50 [facility] Comment on above: Performed By: #### C CORI ####[facility] Durrfsmjlr1336 [place] [phone]. Anjali Reagan SEG % 74.0 % Normal 43.0-75.0 [facility] Comment on above: Performed By: #### C CORI ####[facility] Lvjckjvtwt7340 [place] [id number]. Anjali Tez WBC 7.8 103/ul Normal 4.0-11.0 [facility] Comment on above: Performed By: #### Uzair PERSAUD ####[facility] Zbnjvmbgai6067 [place] [address]Dr. Biancaramona Reagan CRPon 07-05-2021 CRP [Mass/Vol] mg/L Critically high <=1.0 [facility] Comment on above: Performed By: #### C RP, BMP ####[facility] Ihuzsetedh1322 [place] [address]Dr. Anjali Reagan PROF CHEM 8 (BAS METB)on Anion gap [Moles/Vol] 10.1 mmol/L Normal [facility] Comment on above: Performed By: #### C RP, BMP ####[facility] Fjhfpiyssp3251 [place] [address]Dr. Anjali Reagan Calcium [Mass/Vol] 9.6 mg/dL Normal 8.5-10.1 [facility] Comment on above: Performed By: #### C RP, BMP ####[facility] [facility] Nnat[address]kqdq[address] [place] [address]Dr. Anjali Reagan Chloride [Moles/Vol] 100 mmol/L Normal 98-107 [facility] Comment on above: Performed By: #### C RP, BMP ####[facility] Tucavnapux53[address] [place] [address]Dr. Anjali Reagan CO2 [Moles/Vol] 30.4 mmol/L Critically high 22.0-30.0 [facility] Comment on above: Performed By: #### C RP, BMP ####[facility] Oogabybjwb2957 [place] [phone]. Anjali Reagan Creatinine [Mass/Vol] 1.49 mg/dL Critically high 0.66-1.25 [facility] Comment on above: Performed By: #### C RP, BMP ####[facility] Wjpejxfwvl8501 [place] [phone]. Anjali Reagan EGFR-AF [place] 58 mL/min/1.73m2 Critically low >=60 [facility] Comment on above: Performed By: #### C RP, BMP ####[facility] Wydrcjnqgt7925 [place] [address]Dr. Anjali Reagan EGFR-NON AF [place] 48 mL/min/1.73m2 Critically low >=60 [facility] Comment on above: Performed By: #### C RP, BMP ####[facility] Cifpefddlr[address] [place], [place] [address]Dr. Anjali Reagan Glucose [Mass/Vol] 191 mg/dL Critically high 74-106 T [facility] Comment on above: Performed By: #### C RP, BMP ####[facility] Siqwildztn90[address] [place], [place] [address]Dr. Anjali Reagan Potassium [Moles/Vol] 4.5 mmol/L Normal 3.4-5.0 [facility] Comment on above: Performed By: #### C RP, BMP ####[facility] Fndenwvbwh[address] [place], [place] [address]Dr. Biancaramona Reagan Sodium [Moles/Vol] 136 mmol/L Critically low 137-145 Th [facility] Comment on above: Performed By: #### C RP, BMP ####[facility] Ifiiqddmfv66[address] [place], [place] [address]Dr. Anjali Reagan Urea nitrogen [Mass/Vol] 33.0 mg/dL Critically high 7.0-18 .0 [facility] Comment on above: Performed By: #### C RP, BMP ####[facility] Svadkckfjv[address] [place], [place] [address]Dr. Anjali Reagan Urea nitrogen/Creatinine [Mass ratio] 22.1 mg/mg Normal [facility] Comment on above: Performed By: #### C RP, BMP ####[facility] Oxixaqrron7606 [place] [phone]. Anjali Reagan SED RATE WESTERGRENon 2021 SED RATE 26 mm/hr Critically high <=20 [facility] Comment on above: Performed By: #### S EDR ####[facility] Bjuwqwrtic0545 [place] [phone]. Anjali Reagan XR ANKLE RT MIN 3 VIEWSon XR ANKLE RT MIN 3 VIEWS Normal T [facility] CT ANKLE RT WO CONon 022 CT ANKLE RT WO CON Normal [facility] CULTURE OTHERon 05-19-2021 CULTURE OTHER Normal [facility] Comment on above: Performed By: #### O THCX ####[facility] Pegwrdtiyo60[address] [place] [address]Dr. Anjali Reagan CULTURE ANAEROBICon 05-16-19 22 CULTURE ANAEROBIC Specimen Comments: RIGHT FOOT ABSCESS Culture Observations: NO GROWTH OF ANAEROBES AT 72 HOURS. Normal [facility] Comment on above: Performed By: #### A NACX ####[facility] Dtrtluvgvh[address] [place], [place] [address]Dr. Anjali Reagan GRAM STAINon 05-16-2021 DIPHTHEROIDS Normal [facility] Comment on above: Performed By: #### G STAIN ####[facility] Vdmreoalkf6774 [place] [phone]. Anjali Reagan EPITHELIALS Normal [facility] Comment on above: Performed By: #### G STAIN ####[facility] Sdeaotlzsi0537 [place] [phone]. Anjali Reagan FUNGAL ELEMENTS Normal [facility] Comment on above: Performed By: #### G STAIN ####[facility] Qrsldypndi7630 [place] [phone]. Anjali Reagan GRAM NEG BACILLI MANY Normal [facility] Comment on above: Performed By: #### G STAIN ####[facility] Weyumlqcla5[address] [place] [address]Dr. Anjali Reagan GRAM NEG DIPPLOCOCCI Normal [facility] Comment on above: Performed By: #### G STAIN ####[facility] Gnywzhydmt3164 [place] [address]Dr. Anjali Reagan GRAM POS BACILLI Normal [facility] Comment on above: Performed By: #### G STAIN ####[facility] Vdxzghlttb8228 [place] [phone]. Anjali Reagan GRAM POSITIVE COCCI Normal [facility] Comment on above: Performed By: #### G STAIN ####[facility] Pwfdxreijc[address] [place], [place] [address]Dr. Anjali Reagan GRAM STAIN SOURCE RIGHT FOOT Normal [facility] Comment on above: Performed By: #### G STAIN ####[facility] Bjdmwtjume6674 [place] [address]Dr. Anjali Reagan GS_DIPTH Normal [facility] Comment on above: Performed By: #### G STAIN ####[facility] Bdypisblur014[address] [place], [place] [address]Dr. Anjali Reagan WBC MANY Normal [facility] Comment on above: Performed By: #### G STAIN ####[facility] Hvhiwnjkwe[address] [place], [place] [address]Dr. Anjali Reagan XR ANKLE RT MIN 3 VIEWSon XR ANKLE RT MIN 3 VIEWS Normal [facility] COMPREHENSIVE METABOLIC PANE Ray 04-16-2021 Albumin [Mass/Vol] 4.6 g/dL Normal 3.6-5.1 [facility] Comment on above: Performed By: #### 7 600, 496, 81226 #### [facility] [address], [address] [place] [phone] Answerer: Juan Meraz MD Albumin/Globulin [Mass ratio] 1.7 {ratio} Normal 1.0-2.5 [facility] Comment on above: Performed By: #### 7 600, 496, 39360 #### [facility] [address] [facility], [address] [place] [phone] Answerer: Juan Meraz MD ALP [Catalytic activity/Vol] 119 U/L Normal 35-144 [facility] Comment on above: Performed By: #### 7 600, 496, 68766 #### [facility] [place] [address] Answerer: Juan Meraz MD ALT [Catalytic activity/Vol] 19 U/L Normal 9-46 [facility] Comment on above: Performed By: #### 7 600, 496, 04122 #### [facility] [place] [address] Answerer: Juan Meraz MD AST [Catalytic activity/Vol] 20 U/L Normal 10-35 [facility] Comment on above: Performed By: #### 7 600, 496, 89286 #### [facility] [place] [address] Answerer: Juan Meraz MD Bilirubin [Mass/Vol] 0.6 mg/dL Normal 0.2-1.2 [facility] Comment on above: Performed By: #### 7 600, 496, 25668 #### [facility] [place] [address] Answerer: Juan Meraz MD Calcium [Mass/Vol] 9.9 mg/dL Normal 8.6-10.3 [facility] Comment on above: Performed By: #### 7 600, 496, 47107 #### [facility] [place] [address] Answerer: Juan Meraz MD Chloride [Moles/Vol] 102 mmol/L Normal 98-110 [facility] Comment on above: Performed By: #### 7 600, 496, 01144 #### [facility] [place] [address] Answerer: Juan Meraz MD CO2 [Moles/Vol] 28 mmol/L Normal 20-32 [facility] Comment on above: Performed By: #### 7 600, 496, 56746 #### [facility] [place] [address] Answerer: Juan Meraz MD Creatinine [Mass/Vol] 1.59 mg/dL High 0.70-1.[address] [facility] Comment on above: Result Comment: For patients >49 years of age, the reference limit for Creatinine is approximately 13% higher for people identified as -Latvian. Performed By: #### 7 600, 496, 44693 #### [facility] [place] [address] Answerer: Juan Meraz MD eGFR NON-AFR. [place] 46 mL/min/1.73m2 Low > OR = 60 [facility] Comment on above: Performed By: #### 7 600, 496, 51352 #### [facility] [place] [address] Answerer: Juan Meraz MD GFR/1.73 sq M.predicted among blacks MDRD (S/P/Bld) [Vol rate/Area] 53 mL/min/{1.73_m2} Low > OR = 60 [facility] Comment on above: Performed By: #### 7 600, 496, 85866 #### [facility] [place] [address] Answerer: Juan Meraz MD Globulin (S) [Mass/Vol] 2.7 g/dL Normal 1.9-3.7 [facility] Comment on above: Performed By: #### 7 600, 496, 09211 #### [facility] [place] [address] Answerer: Juan Meraz MD Glucose [Mass/Vol] 176 mg/dL High 65-139 [facility] Comment on above: Result Comment: Non-fasting reference interval For someone without known diabetes, a glucose value >125 mg/dL indicates that they may have diabetes and this should be confirmed with a follow-up test. Performed By: #### 7 600, 496, 64842 #### [facility] [address] [place] [address] Answerer: Juan Meraz MD Potassium [Moles/Vol] 4.2 mmol/L Normal 3.5-5.[address] [facility] Comment on above: Performed By: #### 7 600, 496, 11590 #### [facility] [place] [address] Answerer: Juan Meraz MD Protein [Mass/Vol] 7.3 g/dL Normal 6.1-8.1 [facility] Comment on above: Performed By: #### 7 600, 496, 57378 #### [facility] [place] [address] Answerer: Juan Meraz MD Sodium [Moles/Vol] 138 mmol/L Normal 135-146 [facility] Comment on above: Performed By: #### 7 600, 496, 54976 #### [facility] [place] [address] Answerer: Juan Meraz MD Urea nitrogen [Mass/Vol] 48 mg/dL High 7-25 [facility] Comment on above: Performed By: #### 7 600, 496, 18128 #### [facility] [place] [address] Answerer: Juan Meraz MD Urea nitrogen/Creatinine [Mass ratio] 30 mg/mg High 6-22 [facility] Comment on above: Performed By: #### 7 600, 496, 45253 #### [facility] [place] [address] Answerer: Juan Meraz MD HEMOGLOBIN A1con 04-16-2021 HEMOGLOBIN [...] 1 0165, 496, 905 #### [facility] [address], [address] [place] [address] Answerer: Juan Meraz MD LIPID PANEL, [facility] [place] 04-02 Cholesterol [Mass/Vol] 108 mg/dL Normal <200 [facility] Comment on above: Order Comment: FASTI NG:NO FASTING: NO Performed By: #### 7 600, 496, 13819 #### [facility] [address], [address] [place] [address] Answerer: Juan Meraz MD Cholesterol in HDL [Mass/Vol] 47 mg/dL Normal > OR = 40 [facility] Comment on above: Order Comment: FASTI NG:NO FASTING: NO Performed By: #### 7 600, 496, 82673 #### [facility] [address], [address] [place] [address] Answerer: Juan Meraz MD Cholesterol in LDL [Mass/Vol] 42 mg/dL Normal [facility] Comment on above: Order Comment: FASTI NG:NO FASTING: NO Result Comment: Refe rence range: <100 Desirable range <100 mg/dL for primary prevention; <70 mg/dL for patients with CHD or diabetic patients with > or = 2 CHD risk factors. LDL-C is now calculated using the Camden-Sabina calculation, which is a validated novel method providing better accuracy than the Friedewald equation in the estimation of LDL-C. Camden BAH et al. TABITHA. 2013;310(19): 4901-5639 (http://education.[employer]/faq/ASL376) Performed By: #### 7 600, 496, 85120 #### [facility] [address], [address] [place] [address] Answerer: Juan Meraz MD Cholesterol.total/Choles terol in HDL [Mass ratio] 2.3 {ratio} Normal <5.0 [facility] Comment on above: Order Comment: FASTI NG:NO FASTING: NO Performed By: #### 7 600, 496, 62526 #### [facility] [address], [address] [place] [address] Answerer: Juan Meraz MD NON HDL CHOLESTEROL 61 mg/dL (calc) Normal <130 [facility] Comment on above: Order Comment: FASTI NG:NO FASTING: NO Result Comment: For patients with diabetes plus 1 major ASCVD risk factor, treating to a non-HDL-C goal of <100 mg/dL (LDL-C of <70 mg/dL) is considered a therapeutic option. Performed By: #### 7 600, 496, 13000 #### [facility] [place] [address] Answerer: Juan Meraz MD Triglyceride [Mass/Vol] 102 mg/dL Normal <150 [facility] Comment on above: Order Comment: FASTI NG:NO FASTING: NO Performed By: #### 7 600, 496, 35127 #### [facility] [address], [address] [place] [address] Answerer: Juan Meraz MD CT ANKLE RT WO CONon 022 CT ANKLE RT WO CON Normal [facility] XR ANKLE RT MIN 3 VIEWSon XR ANKLE RT MIN 3 VIEWS Normal T [facility] ACID FAST SMEAR AND CXon Acid Fast Culture Negative Normal [facility] Comment on above: Result Comment: No a rj fast bacilli isolated after 6 weeks. Performed By: #### A FB ####[facility] Hdaospiswc3634 [place], [place] [address]Ko. Anjali Reagan Acid Fast Smear Negative Normal [facility] Comment on above: Performed By: #### A FB ####[facility] Cdfcrvnpoz2981 [place], [place] [address]Wn. Anjali [employer] Specimen Processing Direct Inoculation Normal [facility] Comment on above: Performed By: #### A FB ####[facility] Udgcowefbk6134 [place] [phone]. Anjali Reagan ACID FAST SMEAR AND CXon Acid Fast Culture Negative Normal [facility] Comment on above: Result Comment: No a rj fast bacilli isolated after 6 weeks. Performed By: #### A FB ####[facility] Ggxumdwrfc9069 [place] [phone]. Anjali Reagan Acid Fast Smear Negative Normal [facility] Comment on above: Performed By: #### A FB ####[facility] Mkvyutxcac[address] [place], [place] [phone]. Anjali [employer] Specimen Processing Tissue Grinding [facility] Comment on above: Performed By: #### A FB ####[facility] Pbgjjuybvv[address] [place], [place] [address]Dr. Anjali Reagan [employer] Specimen Processing Direct Inoculation Normal [facility] Comment on above: Performed By: #### A FB ####[facility] Fotgjdcjdg[address] [place], [place] [phone]. Anjali Reagan FUNGAL CULTUREon 03-15-2021 Fungus (Mycology) Culture Final report Normal [facility] Comment on above: Performed By: #### C XFUN ####[facility] [address]zyzhnlfh[address] [place], [place] [phone]. Anjali Reagan Fungus Stain Final report Normal [facility] Comment on above: Performed By: #### C XFUN ####[facility] Fyyaxdupre62[address] [place], [place] [phone]. Anjali Reagan Result 1 Comment Normal [facility] Comment on above: Result Comment: MIRIAN/ Calcofluor preparation: no fungus observed. Performed By: #### C XFUN ####[facility] Afhlsyoqhp[address] [place], [place] [phone]. Anjali Reagan Result Comment: No y east or mold isolated after 4 weeks. FUNGAL CULTUREon 03-09-2021 Fungus (Mycology) Culture Final report Normal [facility] Comment on above: Performed By: #### C XFUN ####[facility] Clovaajfdu[address] [place], [place] [phone]. Anjali Reagan Fungus Stain Final report Normal [facility] Comment on above: Performed By: #### C XFUN ####[facility] Msjxgejkjo5140 [place], [place] [address]Pz. Anjali Reagan Result 1 Comment Normal [facility] Comment on above: Result Comment: MIRIAN/ Calcofluor preparation: no fungus observed. Performed By: #### C XFUN ####[facility] Csoddffggc3233 [place], [place] [address]Pj. Anjali Tez Result Comment: No y east or mold isolated after 4 weeks. XR ANKLE RT MIN 3 VIEWSon XR ANKLE RT MIN 3 VIEWS Normal T he [facility] Otolaryngology Office/Clinic Noteon 02-28-2021 Otolaryngology Office/Clinic [...] time. They were unable to travel to [place] as he required another right ankle surgery. [...] Dr. Freed. Previous pathology by physician in [place] about 1 year ago. PMHx of multiple [...] postauricular m (more content not included)... Normal [facility] CBC W MANUAL DIFFon 02-13-20 21 ATYPICAL LYMPH # Normal [facility] Comment on above: Performed By: #### C CORI ####[facility] Lthmccixlo45[address] [place] [address]Dr. Anjali Reagan ATYPICAL LYMPH % Normal [facility] Comment on above: Performed By: #### C CORI ####[facility] Qduaykdhfc6106 [place] [address]Dr. Biancalan Reagan BAND # 0.3 103/ul Normal 0.0-0.3 [facility] Comment on above: Performed By: #### C CORI ####[facility] Zmcvwngpxx6847 [place] [address]Dr. Biancalan Reagan BAND % 4 % Normal 0-5 [facility] Comment on above: Performed By: #### C CORI ####[facility] Nycbjwwjhx5[address] [place] [address]Dr. Biancalan Reagan BASOM # 0.00 103/ul Normal 0.00-0.10 [facility] Comment on above: Performed By: #### C BCFIONA ####[facility] Qaxobjfkyh8200 [place] [address]Dr. Anjali Reagan BASOM % 0.0 % Critically low 0.2-2.0 [facility] Comment on above: Performed By: #### C CORI ####[facility] Srdmotdxeg9052 [place] [address]Dr. Anjali Reagan BLAST # Normal [facility] Comment on above: Performed By: #### C BCFIONA ####[facility] Npjytzyqxx7503 [place] [address]Dr. Anjali Reagan BLAST % Normal [facility] Comment on above: Performed By: #### C CORI ####[facility] Tugyztczqd[address] [place], [place] [address]Dr. Anjali Reagan CORRECTED WBC Normal 4.0-11.0 [facility] Comment on above: Performed By: #### C CORI ####[facility] Fpombwrahi[address] [place], [place] [address]Dr. Anjali Reagan EOS # 0.28 103/ul Normal 0.00-0.70 [facility] Comment on above: Performed By: #### C CORI ####[facility] Ewgzoyytyl[address] [place], [place] [address]Dr. Anjali Reagan EOS% 4.0 % Normal 0.9-7.0 [facility] Comment on above: Performed By: #### C BCFIONA ####[facility] Xggeqsruae[address] [place], [place] [address]Dr. Anjali Reagan HCT 28.5 % Critically low 42.0-54.0 [facility] Comment on above: Performed By: #### C BCFIONA ####[facility] Rnadkimjwr[address] [place], [place] [address]Dr. Anjali Reagan HGB 8.6 g/dl Critically low 14.0-18.0 [facility] Comment on above: Performed By: #### C CORI ####[facility] Ehvzkypysd[address] [place], [place] [address]Dr. Anjali Reagan HYPOCHROMASIA 3+ Normal [facility] Comment on above: Performed By: #### C CORI ####[facility] Rudwpnkvrz6428 [place] [phone]. Anjali Reagan LYMPHM # 0.57 103/ul Critically low 1.20-3.80 [facility] Comment on above: Performed By: #### C BCFIONA ####[facility] Ircsuaqnjv7271 [place] [phone]. Anjali Reagan LYMPHM% 8.0 % Critically low 20.5-60.0 [facility] Comment on above: Performed By: #### C CORI ####[facility] Zafyfsnqzs9950 [place] [phone]. Anjali Reagan MCH 25.4 pg Critically low 25.9-34.0 [facility] Comment on above: Performed By: #### C CORI ####[facility] Gullzjhjck4046 [place] [phone]. Anjali Reagan MCHC 30.2 g/dl Normal 29.9-35.2 [facility] Comment on above: Performed By: #### C CORI ####[facility] Ghiwagulqy9035 [place] [phone]. Anjali Reagan MCV 84.1 fL Normal 80.0-94.0 [facility] Comment on above: Performed By: #### C CORI ####[facility] Kimahiihbo3043 [place] [phone]. Anjali Reagan METAMYELOCYTE # Normal [facility] Comment on above: Performed By: #### C BCFIONA ####[facility] Oojcxofhpr3684 [place] [phone]. Anjali Reagan METAMYELOCYTE % Normal [facility] Comment on above: Performed By: #### C CORI ####[facility] Ifntfgdatl4632 [place] [phone]. Anjali Reagan MICROCYTOSIS 2+ Normal [facility] Comment on above: Performed By: #### C CORI ####[facility] Ghorneuirm9994 [place] [phone]. Anjali Reagan MONOM# 0.14 103/ul Critically low 0.30-0.80 [facility] Comment on above: Performed By: #### C CORI ####[facility] Tafmqzxxwc6424 [place] [phone]. Anjali Reagan MONOM% 2.0 % Normal 1.7-12.0 [facility] Comment on above: Performed By: #### C CORI ####[facility] Ctymaffpry4717 [place] [phone]. Anjali Reagan MPV 9.3 fL Critically low 9.5-13.5 [facility] Comment on above: Performed By: #### C CORI ####[facility] Saahmkednz[address] [place] [address]Dr. Anjali Reagan MYELOCYTE # Normal [facility] Comment on above: Performed By: #### C CORI ####[facility] Aljsumkztf9[address] [place] [address]Dr. Anjali Reagan MYELOCYTE % Normal [facility] Comment on above: Performed By: #### C CORI ####[facility] Prwerfcurk75[address] [place] [address]Dr. Anjali Reagan NRBC 1 Normal [facility] Comment on above: Performed By: #### C CORI ####[facility] Wynxsqbhjn8939 [place] [phone]. Anjali Reagan PLT 186 103/ul Normal 150-450 [facility] Comment on above: Performed By: #### C CORI ####[facility] Awnsjwngme9699 [place] [phone]. Anjali Reagan RBC 3.39 106/ul Critically low 4.70-6.10 [facility] Comment on above: Performed By: #### C CORI ####[facility] Njpvgblfph2907 [place] [address]Dr. Anjali Reagan RDW 18.8 % Critically high 11.0-15.0 [facility] Comment on above: Performed By: #### C CORI ####[facility] Ksqqquvzut56[address] [place] [address]Dr. Anjali Reagan SEG # 5.82 103/ul Normal 1.40-6.50 [facility] Comment on above: Performed By: #### C CORI ####[facility] Dexqspcepi8471 [place] [address]Dr. Anjali Reagan SEG % 82.0 % Critically high 43.0-75.0 [facility] Comment on above: Performed By: #### C BCFIONA ####[facility] Uidwyaonxh9582 [place] [address]Dr. Anjali Tez WBC 7.1 103/ul Normal 4.0-11.0 [facility] Comment on above: Performed By: #### C CORI ####[facility] Aezfuipcys6595 [place] [address]Dr. Anjali Reagan POINT OF CARE GLUCOSEon 01-31 Glucose [Mass/Vol] 175 mg/dL Critically high 74-106 [facility] Comment on above: Performed By: #### P OCGLUC ####[facility] Ozajnbgclc9750 [place] [address]Dr. Anjali Reagan PROF 14(COMP METB)on 021 Albumin [Mass/Vol] 2.4 g/dL Critically low 3.5-5.0 [facility] Comment on above: Performed By: #### C MP ####[facility] Bfhquponku5520 [place] [address]Dr. Anjali Reagan Albumin/Globulin [Mass ratio] 0.6 {ratio} Normal [facility] Comment on above: Performed By: #### C MP ####[facility] Posaunkpzk5969 [place] [address]Dr. Anjali Reagan ALP [Catalytic activity/Vol] 93 U/L Normal 38-126 [facility] Comment on above: Performed By: #### C MP ####[facility] Vrxlcsebsl0438 [place] [address]Dr. Anjali Reagan ALT [Catalytic activity/Vol] 18 U/L Critically low 21-72 [facility] Comment on above: Performed By: #### C MP ####[facility] Ygcprxxevc8173 [place] [phone]. Anjali Reagan Anion gap [Moles/Vol] 12.5 mmol/L Normal [facility] Comment on above: Performed By: #### C MP ####[facility] Rszqyzummo2887 [place] [phone]. Anjali Reagan AST [Catalytic activity/Vol] 30 U/L Normal 17-59 [facility] Comment on above: Performed By: #### C MP ####[facility] Ryjijoibdq2059 [place] [phone]. Anjali Reagan Bilirubin [Mass/Vol] 0.5 mg/dL Normal 0.2-1.3 [facility] Comment on above: Performed By: #### C MP ####[facility] Magpipcsqx[address] [place], [place] [address]Dr. Biancaramona Reagan Calcium [Mass/Vol] 8.5 mg/dL Normal 8.4-10.2 [facility] Comment on above: Performed By: #### C MP ####[facility] Khzwxljsur2662 [place] [address]Dr. Anjali Tez Chloride [Moles/Vol] 103 mmol/L Normal 98-107 [facility] Comment on above: Performed By: #### C MP ####[facility] Znfqxswhjp6308 [place] [address]Dr. Biancaramona Reagan CO2 [Moles/Vol] 25.8 mmol/L Normal 22.0-30.0 [facility] Comment on above: Performed By: #### C MP ####[facility] Gfmozyuydk2819 [place] [id number]. Anjali Reagan Creatinine [Mass/Vol] 1.09 mg/dL Normal 0.66-1.25 [facility] Comment on above: Performed By: #### C MP ####[facility] Bcadzixdcj18[address] [place] [address]Dr. Anjali Tez EGFR-AF [place]ER >60 Normal >=60 [facility] Comment on above: Performed By: #### C MP ####[facility] Watgihvdsk1473 [place] [id number]. Anjali Reagan EGFR-NON AF [place] >60 Normal >=60 [facility] Comment on above: Performed By: #### C MP ####[facility] Niafnfzvor6630 [place] [address]Dr. Anjali Reagan Globulin (S) [Mass/Vol] 3.7 g/dL Normal [facility] Comment on above: Performed By: #### C MP ####[facility] Vwzibnbdzk0275 [place] [address]Dr. Anjali Reagan Glucose [Mass/Vol] 165 mg/dL Critically high 74-106 [facility] Comment on above: Performed By: #### C MP ####[facility] Mpxyezwlnf5826 [place] [address]Dr. Anjali Reagan Potassium [Moles/Vol] 4.3 mmol/L Normal 3.4-5.0 [facility] Comment on above: Performed By: #### C MP ####[facility] Lsdcohnnui399[address] [place], [place] [address]Dr. Anjali Reagan Protein [Mass/Vol] 6.1 g/dL Normal 6.1-8.2 [facility] Comment on above: Performed By: #### C MP ####[facility] Nimhqefwib433[address] [place], [place] [address]Dr. Anjali Reagan Sodium [Moles/Vol] 137 mmol/L Normal 137-145 [facility] Comment on above: Performed By: #### C MP ####[facility] Fukruasoyq6818[address] [place], [place] [address]Dr. Anjali Reagan Urea nitrogen [Mass/Vol] 24.0 mg/dL Critically high 9.0-20 .0 [facility] Comment on above: Performed By: #### C MP ####[facility] Nknugsrlru44[address] [place], [place] [address]Dr. Anjali Reagan Urea nitrogen/Creatinine [Mass ratio] 22.0 mg/mg Normal [facility] Comment on above: Performed By: #### C MP ####[facility] Aojdrqwulu2430[address] [place], [place] [address]Dr. Anjali Reagan ALBUMINon 02-11-2021 Albumin [Mass/Vol] 2.8 g/dL Critically low 3.5-5.0 [facility] Comment on above: Performed By: #### P REALB, ALB ####[facility] Waqlhwfuol7922 [place] [address]Dr. Anjali Reagan CBC AUTO DIFFon 02-11-2021 BASO # 0.0 103/ul Normal 0.0-0.1 [facility] Comment on above: Performed By: #### C BC ####[facility] Yhwxjbblko917[address] [place], [place] [address]Dr. Anjali Tez Basophils/100 WBC (Bld) 0.5 % Normal 0.2-2.0 [facility] Comment on above: Performed By: #### C BC ####[facility] Anceulcxsq537[address] [place], [place] [address]Dr. Anjali Tez EO # 0.5 103/ul Normal 0.0-0.7 [facility] Comment on above: Performed By: #### C BC ####[facility] Navxieigfe2211[address] [place], [place] [address]Dr. Anjali Tez Eosinophils/100 WBC (Bld) 7.4 % Critically high 0.9-7.0 [facility] Comment on above: Performed By: #### C BC ####[facility] Cojmibkqpo938[address] [place], [place] [address]Dr. Biancaramona Reagan Erythrocyte distribution width (RBC) [Ratio] 18.7 % Critically high 11.0-15.0 [facility] Comment on above: Performed By: #### C BC ####[facility] Vykctxwbxz165[address] [place], [place] [address]Dr. Anjali Reagan Hematocrit (Bld) [Volume fraction] 30.7 % Critically low 42.0-54.0 [facility] Comment on above: Performed By: #### C BC ####[facility] Tuymbpaizm3639[address] [place], [place] [address]Dr. Anjali Tez Hemoglobin (Bld) [Mass/Vol] 9.5 g/dL Critically low 14.0-18.0 [facility] Comment on above: Performed By: #### C BC ####[facility] Jehuvvdbhb[address] [place] [address]DrVeronica Reagan IG # 0.05 10e3/ul Critically high 0.00-0.03 [facility] Comment on above: Performed By: #### C BC ####[facility] Emrkwxktvp5788 [place] [phone] Reagan IG % 0.8 % Critically high 0.0-0.5 [facility] Comment on above: Performed By: #### C BC ####[facility] Ufoxkumosj0008 [place] [address]DrVeronica Reagan LYMPH # 0.6 103/ul Critically low 1.2-3.8 [facility] Comment on above: Performed By: #### C BC ####[facility] Pzbadevcon0989 [place] [address]DrVeronica Reagan Lymphocytes/100 WBC (Bld) 8.5 % Critically low 20.5-60.0 [facility] Comment on above: Performed By: #### C BC ####[facility] Huavtexuub0589 [place] [address]DrVeronica Reagan MANUAL DIFF REQ NO Normal [facility] Comment on above: Performed By: #### C BC ####[facility] Zabigwihqi5633 [place] [address]DrVeronica Reagan MCH (RBC) [Entitic mass] 25.3 pg Critically low 25.9-34 .0 [facility] Comment on above: Performed By: #### C BC ####[facility] Xigvxbglca9395 [place] [address]DrVeronica Reagan MCHC (RBC) [Mass/Vol] 30.9 g/dL Normal 29.9-35.2 [facility] Comment on above: Performed By: #### C BC ####[facility] Aqejpuuqpp3097 [place] [address]DrVeronica Reagan MCV (RBC) [Entitic vol] 81.6 fL Normal 80.0-94.0 [facility] Comment on above: Performed By: #### C BC ####[facility] Qptzlkcgeh6844 [place] [phone]. Anjali Reagan MONO # 0.8 103/ul Normal 0.3-0.8 [facility] Comment on above: Performed By: #### C BC ####[facility] Ytmoanreqb8931 [place] [phone]. Anjali Reagan Monocytes/100 WBC (Bld) 12.2 % Critically high 1.7-12. 0 [facility] Comment on above: Performed By: #### C BC ####[facility] Qtbsvhazgw0433 [place] [phone]. Anjali Reagan NEUT # 4.6 103/ul Normal 1.4-6.5 [facility] Comment on above: Performed By: #### C BC ####[facility] Rmndbxfrpi0506 [place] [address]Dr. Anjali Reagan Neutrophils/100 WBC (Bld) 70.6 % Normal 43.0-75.0 [facility] Comment on above: Performed By: #### C BC ####[facility] Yurpxayexc9879 [place] [phone]. Anjali Reagan Platelet mean volume (Bld) [Entitic vol] 9.6 fL Normal 9.5-13.5 [facility] Comment on above: Performed By: #### C BC ####[facility] Ajewamvqys0847 [place] [phone]. Anjali Reagan PLT 205 103/ul Normal 150-450 [facility] Comment on above: Performed By: #### C BC ####[facility] Npodcggjoh1747 [place] [phone]. Anjali Reagan RBC 3.76 106/ul Critically low 4.70-6.10 [facility] Comment on above: Performed By: #### C BC ####[facility] Bptyyzkbgr9497 [place] [phone]. Anjali Reagan WBC 6.5 103/ul Normal 4.0-11.0 [facility] Comment on above: Performed By: #### C BC ####[facility] Wzwrocuyqc0413 [place] [phone]. Anjali Reagan CULTURE ANAEROBICon 02-12-20 21 CULTURE ANAEROBIC Specimen Comments: RIGHT ANKLE JOINT Culture Observations: NO GROWTH AT 72 HRS Normal [facility] Comment on above: Performed By: #### A NACX ####[facility] Zxwhtuvfjf259[address] [place], [place] [address]Dr. Anjali Reagan CULTURE OTHERon 02-11-2021 CULTURE OTHER Specimen Comments: RIGHT ANKLE JOINT Culture Observations: NO GROWTH AT 72 HRS Normal [facility] Comment on above: Performed By: #### O THCX ####[facility] Edmesfuxjx2795[address] [place], [place] [address]Dr. Anjali Reagan GRAM STAINon 02-11-2021 COMMENTS NO ORGANISMS OBSERVED Normal [facility] Comment on above: Performed By: #### G STAIN ####[facility] Guwuidmclq380[address] [place], [place] [address]Dr. Anjali Reagan DIPHTHEROIDS Normal [facility] Comment on above: Performed By: #### G STAIN ####[facility] Eslibvgfsv640[address] [place], [place] [address]Dr. Anjali Reagan EPITHELIALS Normal [facility] Comment on above: Performed By: #### G STAIN ####[facility] Bggngdjxhw2440[address] [place], [place] [address]Dr. Anjali Reagan FUNGAL ELEMENTS Normal [facility] Comment on above: Performed By: #### G STAIN ####[facility] Vdpoyvedoz324[address] [place], [place] [address]Dr. Anjali Reagan GRAM NEG BACILLI Normal [facility] Comment on above: Performed By: #### G STAIN ####[facility] Dpucuoaibn16[address] [place], [place] [address]Dr. Anjali Reagan GRAM NEG DIPPLOCOCCI Normal [facility] Comment on above: Performed By: #### G STAIN ####[facility] Npsmqbpphl512[address] [place], [place] [address]Dr. Anjali Reagan GRAM POS BACILLI Normal [facility] Comment on above: Performed By: #### G STAIN ####[facility] Dkachloohr9325 [place] [address]Dr. Anjali Reagan GRAM POSITIVE COCCI Normal [facility] Comment on above: Performed By: #### G STAIN ####[facility] Maidponeia9405 [place] [address]Dr. Anjali Reagan GRAM STAIN SOURCE Right ankle joint Normal [facility] Comment on above: Performed By: #### G STAIN ####[facility] Bnxjfwuway970[address] [place], [place] [address]Dr. Anjali Reagan GS_DIPTH Normal [facility] Comment on above: Performed By: #### G STAIN ####[facility] Hunsmnizvb8965[address] [place], [place] [address]Dr. Anjali Reagan WBC FEW Normal [facility] Comment on above: Performed By: #### G STAIN ####[facility] Hxskjmgpcd616[address] [place], [place] [address]Dr. Anjali Reagan POINT OF CARE GLUCOSEon 01-31 Glucose [Mass/Vol] 196 mg/dL Critically high 74-106 [facility] Comment on above: Performed By: #### P OCGLUC ####[facility] Adjcvhttnm560[address] [place], [place] [address]Dr. Anjali Reagan Glucose [Mass/Vol] 176 mg/dL Critically high 74-106 [facility] Comment on above: Performed By: #### P OCGLUC ####[facility] Zzbritypxk7510[address] [place], [place] [address]Dr. Anjali Reagan PREALBUMINon 02-11-2021 Prealbumin [Mass/Vol] 17.8 mg/dL Normal 17.6-36.0 [facility] Comment on above: Performed By: #### P REALB, ALB ####[facility] Yiwvnpfolx622[address] [place], [place] [address]Dr. Anjali Reagan PROF 14(COMP METB)on 021 Albumin [Mass/Vol] 2.6 g/dL Critically low 3.5-5.0 [facility] Comment on above: Performed By: #### B MP, CMP ####[facility] Qzwpfijsaj9891 [place] [address]Dr. Anjali Reagan Albumin/Globulin [Mass ratio] 0.6 {ratio} Normal [facility] Comment on above: Performed By: #### B MP, CMP ####[facility] Kcijnpttvr68[address] [place], [place] [address]Dr. Anjali Reagan ALP [Catalytic activity/Vol] 104 U/L Normal 38-126 [facility] Comment on above: Performed By: #### B MP, CMP ####[facility] Qcqqvuwtpb7640[address] [place], [place] [address]Dr. Anjali Reagan ALT [Catalytic activity/Vol] 17 U/L Critically low 21-72 [facility] Comment on above: Performed By: #### B MP, CMP ####[facility] Kjxraewzmg0734[address] [place], [place] [address]Dr. Anjali Reagan AST [Catalytic activity/Vol] 26 U/L Normal 17-59 [facility] Comment on above: Performed By: #### B MP, CMP ####[facility] Imozswnfwk996[address] [place], [place] [address]Dr. Anjali Reagan Bilirubin [Mass/Vol] 0.5 mg/dL Normal 0.2-1.3 [facility] Comment on above: Performed By: #### B MP, CMP ####[facility] Ybvegjjlkd542[address] [place], [place] [address]Dr. Anjali Reagan Globulin (S) [Mass/Vol] 4.1 g/dL Normal [facility] Comment on above: Performed By: #### B MP, CMP ####[facility] Urcwcuvmrq5427[address] [place], [place] [address]Dr. Anjali Reagan Protein [Mass/Vol] 6.7 g/dL Normal 6.1-8.2 [facility] Comment on above: Performed By: #### B MP, CMP ####[facility] Eydlpwzxzs942[address] [place], [place] [address]Dr. Anjali Reagan PROF CHEM 8 (BAS METB)on Anion gap [Moles/Vol] 11.3 mmol/L Normal [facility] Comment on above: Performed By: #### B MP, CMP ####[facility] Gibbwjgjlp4793 [place] [phone]. Anjali Reagan Calcium [Mass/Vol] 9.0 mg/dL Normal 8.4-10.2 [facility] Comment on above: Performed By: #### B MP, CMP ####[facility] Qwyrunpdti7768 [place] [phone]. Anjali Reagan Chloride [Moles/Vol] 101 mmol/L Normal 98-107 [facility] Comment on above: Performed By: #### B MP, CMP ####[facility] Grvrdqverl2595 [place] [phone]. Anjali Reagan CO2 [Moles/Vol] 28.0 mmol/L Normal 22.0-30.0 [facility] Comment on above: Performed By: #### B MP, CMP ####[facility] Buttchwtjw3337[address] [place], [place] [address]Dr. Anjali Reagan Creatinine [Mass/Vol] 1.23 mg/dL Normal 0.66-1.25 [facility] Comment on above: Performed By: #### B MP, CMP ####[facility] Hqbngioaxd5195 [place] [address]Dr. Anjali Reagan EGFR-AF [place] >60 Normal >=60 [facility] Comment on above: Performed By: #### B MP, CMP ####[facility] Vvcqauvnmn2352 [place] [address]Dr. Anjali Tez EGFR-NON AF [place] 59 mL/min/1.73m2 Critically low >=60 [facility] Comment on above: Performed By: #### B MP, CMP ####[facility] Tsclpbxgmd5875 [place] [phone]. Anjali Reagan Glucose [Mass/Vol] 109 mg/dL Critically high 74-106 [facility] Comment on above: Performed By: #### B MP, CMP ####[facility] Qglsrbwcvj6138 [place] [address]Dr. Anjali Reagan Potassium [Moles/Vol] 3.9 mmol/L Normal 3.4-5.0 [facility] Comment on above: Performed By: #### B MP, CMP ####[facility] Gmacmtnzkm9521 [place] [address]Dr. Anjali Reagan Sodium [Moles/Vol] 136 mmol/L Critically low 137-145 [facility] Comment on above: Performed By: #### B MP, CMP ####[facility] Dambauqjlf2931 [place] [address]Dr. Anjali Reagan Urea nitrogen [Mass/Vol] 32.0 mg/dL Critically high 9.0-20 .0 [facility] Comment on above: Performed By: #### B MP, CMP ####[facility] Zgvrwkraes780[address] [place], [place] [address]Dr. Anjali Reagan Urea nitrogen/Creatinine [Mass ratio] 26.0 mg/mg Normal [facility] Comment on above: Performed By: #### B MP, CMP ####[facility] Urcacdeprk838[address] [place], [place] [address]Dr. Anjali Reagan VANCOMYCIN TROUGHon 02-12-20 21 VANCOMYCIN TROUGH 9.8 ug/ml Normal 5.0-20.0 [facility] Comment on above: Performed By: #### V ANCT ####[facility] Lyouctgggs655[address] [place], [place] [address]Dr. Anjali Reagan XR ANKLE RT 2Von 02-11-2021 XR ANKLE RT 2V Normal [facility] XR FOOT RT MIN 3 VIEWSon XR FOOT RT MIN 3 VIEWS Normal [facility] CBC AUTO DIFFon 02-10-2021 BASO # 0.0 103/ul Normal 0.0-0.1 [facility] Comment on above: Performed By: #### C BC ####[facility] Yayuvascme902[address] [place], [place] [address]Dr. Anjali Reagan Basophils/100 WBC (Bld) 0.3 % Normal 0.2-2.0 [facility] Comment on above: Performed By: #### C BC ####[facility] Nwvgztmuqn668[address] [place], [place] [address]Dr. Anjali Reagan EO # 0.2 103/ul Normal 0.0-0.7 [facility] Comment on above: Performed By: #### C BC ####[facility] Bycecwpuyb4602 [place] [address]Dr. Anjali Reagan Eosinophils/100 WBC (Bld) 2.7 % Normal 0.9-7.0 [facility] Comment on above: Performed By: #### C BC ####[facility] Rjogztazfu217[address] [place], [place] [address]Dr. Anjali Reagan Erythrocyte distribution width (RBC) [Ratio] 18.8 % Critically high 11.0-15.0 [facility] Comment on above: Performed By: #### C BC ####[facility] Gasbberuhu50[address] [place], [place] [address]Dr. Biancaramona Reagan Hematocrit (Bld) [Volume fraction] 31.6 % Critically low 42.0-54.0 [facility] Comment on above: Performed By: #### C BC ####[facility] Egyvqndtst2712[address] [place], [place] [address]Dr. Anjali Reagan Hemoglobin (Bld) [Mass/Vol] 9.6 g/dL Critically low 14.0-18.0 [facility] Comment on above: Performed By: #### C BC ####[facility] Hbgmbbuqsh852[address] [place], [place] [address]Dr. Biancaramona Tez IG # 0.04 10e3/ul Critically high 0.00-0.03 [facility] Comment on above: Performed By: #### C BC ####[facility] Xrznayhocq438[address] [place], [place] [address]Dr. Biancaramona Tez IG % 0.6 % Critically high 0.0-0.5 [facility] Comment on above: Performed By: #### C BC ####[facility] Shfahvmjta20[address] [place], [place] [address]Dr. Anjali Reagan LYMPH # 0.9 103/ul Critically low 1.2-3.8 [facility] Comment on above: Performed By: #### C BC ####[facility] Dmpicurwpb525[address] [place], [place] [address]DrVeronica Reagan Lymphocytes/100 WBC (Bld) 12.2 % Critically low 20.5-60.0 [facility] Comment on above: Performed By: #### C BC ####[facility] Dqhfokarad8997 [place] [address]DrVeronica Reagan MANUAL DIFF REQ NO Normal [facility] Comment on above: Performed By: #### C BC ####[facility] Ccslmkwcjn6423 [place] [address]DrVeronica Reagan MCH (RBC) [Entitic mass] 24.7 pg Critically low 25.9-34 .0 [facility] Comment on above: Performed By: #### C BC ####[facility] Fftprxdqlu3720[address] [place], [place] [address]DrVeronica Reagan MCHC (RBC) [Mass/Vol] 30.4 g/dL Normal 29.9-35.2 [facility] Comment on above: Performed By: #### C BC ####[facility] Zfrpolkypk672[address] [place], [place] [address]DrVeronica Reagan MCV (RBC) [Entitic vol] 81.4 fL Normal 80.0-94.0 [facility] Comment on above: Performed By: #### C BC ####[facility] Wbrcvklekf406[address] [place], [place] [address]DrVeronica Reagan MONO # 0.7 103/ul Normal 0.3-0.8 [facility] Comment on above: Performed By: #### C BC ####[facility] Tuacmmewfr0438[address] [place], [place] [address]DrVeronica Reagan Monocytes/100 WBC (Bld) 9.9 % Normal 1.7-12.0 [facility] Comment on above: Performed By: #### C BC ####[facility] Focxtpnkrn739[address] [place], [place] [address]DrVeronica Reagan NEUT # 5.3 103/ul Normal 1.4-6.5 [facility] Comment on above: Performed By: #### C BC ####[facility] Pmpxnjpquo574[address] [place], [place] [address]DrVeronica Reagan Neutrophils/100 WBC (Bld) 74.3 % Normal 43.0-75.0 [facility] Comment on above: Performed By: #### C BC ####[facility] Ezogugtigz5628 [place] [address]Dr. Anjali Reagan Platelet mean volume (Bld) [Entitic vol] 9.6 fL Normal 9.5-13.5 [facility] Comment on above: Performed By: #### C BC ####[facility] Cevzncfxgv9865 [place] [address]Dr. Anjali Reagan PLT 218 103/ul Normal 150-450 [facility] Comment on above: Performed By: #### C BC ####[facility] Dwpunpqttw4155 [place] [address]Dr. Anjali Reagan RBC 3.88 106/ul Critically low 4.70-6.10 [facility] Comment on above: Performed By: #### C BC ####[facility] Omcivymteq2870 [place] [address]Dr. Anjali Reagan WBC 7.1 103/ul Normal 4.0-11.0 [facility] Comment on above: Performed By: #### C BC ####[facility] Myimxazktn866[address] [place], [place] [address]DrVeronica Reagan POINT OF CARE GLUCOSEon 11 Glucose [Mass/Vol] 219 mg/dL Critically high 74-106 [facility] Comment on above: Performed By: #### P OCGLUC ####[facility] Rodkhnzudd7838 [place] [address]DrVeronica Reagan Glucose [Mass/Vol] 136 mg/dL Critically high 74-106 [facility] Comment on above: Performed By: #### P OCGLUC ####[facility] Livjxeaxzs332[address] [place], [place] [address]DrVeronica Reagan Glucose [Mass/Vol] 119 mg/dL Critically high 74-106 [facility] Comment on above: Performed By: #### P OCGLUC ####[facility] Dpgqpqzzxz410[address] [place], [place] [address]DrVeronica Reagan PROF 14(COMP METB)on 021 Albumin [Mass/Vol] 2.8 g/dL Critically low 3.5-5.0 [facility] Comment on above: Performed By: #### C ALEA, BMP ####[facility] Cwadijkwqm3055 [place], [place] [address]Gc. Anjali Reagan Albumin/Globulin [Mass ratio] 0.7 {ratio} Normal [facility] Comment on above: Performed By: #### C ALEA, BMP ####[facility] Nfgbytwamf8719 [place] [id number]. Biancaramona Reagan ALP [Catalytic activity/Vol] 109 U/L Normal 38-126 [facility] Comment on above: Performed By: #### C ALEA, BMP ####[facility] Udmrdfncas5140 [place] [phone]. Anjali Reagan ALT [Catalytic activity/Vol] 23 U/L Normal 21-72 [facility] Comment on above: Performed By: #### C ALEA, BMP ####[facility] Uefrwxgqyu8585 [place] [phone]. Anjali Tez AST [Catalytic activity/Vol] 24 U/L Normal 17-59 [facility] Comment on above: Performed By: #### C ALEA, BMP ####[facility] Ebuniyfzrn7556 [place] [phone]. Anjali Reagan Bilirubin [Mass/Vol] 0.4 mg/dL Normal 0.2-1.3 [facility] Comment on above: Performed By: #### C ALEA, BMP ####[facility] Xgxtovvqkp1033 [place] [phone]. Anjali Reagan Globulin (S) [Mass/Vol] 4.1 g/dL Normal [facility] Comment on above: Performed By: #### C ALEA, BMP ####[facility] Bnfpnhopei7080 [place] [phone]. Anjali Reagan Protein [Mass/Vol] 6.9 g/dL Normal 6.1-8.2 [facility] Comment on above: Performed By: #### Uzair COSBY, BMP ####[facility] Aqtfxzgeix6440 [place] [address]Dr. Anjali Reagan PROF CHEM 8 (BAS METB)on Anion gap [Moles/Vol] 13.0 mmol/L Normal [facility] Comment on above: Performed By: #### C MP, BMP ####[facility] Yejpqfjiin4806 [place] [address]Dr. Anjali Reagan Calcium [Mass/Vol] 9.4 mg/dL Normal 8.4-10.2 [facility] Comment on above: Performed By: #### C MP, BMP ####[facility] Jgyuhmxbqm14[address] [place], [place] [address]Dr. Anjali Reagan Chloride [Moles/Vol] 104 mmol/L Normal 98-107 [facility] Comment on above: Performed By: #### C MP, BMP ####[facility] Xihdxgguow5435[address] [place], [place] [address]Dr. Anjali Reagan CO2 [Moles/Vol] 27.7 mmol/L Normal 22.0-30.[address] [facility] Comment on above: Performed By: #### C MP, BMP ####[facility] Jurylcqpgc159[address] [place], [place] [address]Dr. Anjali Reagan Creatinine [Mass/Vol] 1.19 mg/dL Normal 0.66-1.25 [facility] Comment on above: Performed By: #### C MP, BMP ####[facility] Jgaqgmiycn1980[address] [place], [place] [address]Dr. Anjali Reagan EGFR-AF [place]ER >60 Normal >=60 [facility] Comment on above: Performed By: #### C MP, BMP ####[facility] Tjrfuxjywr87[address] [place], [place] [address]Dr. Anjali Reagan EGFR-NON AF [place]ER >60 Normal >=60 [facility] Comment on above: Performed By: #### C MP, BMP ####[facility] Lsuobaswbz02[address] [place], [place] [address]Dr. Anjali Reagan Glucose [Mass/Vol] 81 mg/dL Normal 74-106 [facility] Comment on above: Performed By: #### C MP, BMP ####[facility] Paqmbewvtr9643 [place] [address]Dr. Anjali Reagan Potassium [Moles/Vol] 4.1 mmol/L Normal 3.4-5.0 [facility] Comment on above: Performed By: #### C MP, BMP ####[facility] Mwlloissjq8512 [place] [address]Dr. Anjali Reagan Sodium [Moles/Vol] 141 mmol/L Normal 137-145 [facility] Comment on above: Performed By: #### C MP, BMP ####[facility] Zyrtkylxuq318[address] [place], [place] [address]Dr. Anjali Reagan Urea nitrogen [Mass/Vol] 41.0 mg/dL Critically high 9.0-20 .0 [facility] Comment on above: Performed By: #### C ALEA, BMP ####[facility] Fwsjoyrhtk603[address] [place], [place] [address]Dr. Anjali Reagan Urea nitrogen/Creatinine [Mass ratio] 34.4 mg/mg Normal [facility] Comment on above: Performed By: #### C ALEA, BMP ####[facility] Brrynszsbn675[address] [place], [place] [address]Dr. Anjali Reagan CBC W MANUAL DIFFon 02-10-20 21 ANISOCYTOSIS SLIGHT Normal [facility] Comment on above: Performed By: #### C SAUMYAMAN ####[facility] Tdbosljmds24[address] [place], [place] [address]Dr. Anjali Reagan ATYPICAL LYMPH # Normal [facility] Comment on above: Performed By: #### C CORI ####[facility] Khsobnctap0171 [place] [address]Dr. Anjali Reagan ATYPICAL LYMPH % Normal [facility] Comment on above: Performed By: #### C BCMAN ####[facility] Xlgywonyuy224[address] [place], [place] [address]Dr. Anjali Reagan BAND # Normal 0.0-0.3 [facility] Comment on above: Performed By: #### C CORI ####[facility] Bkzyfchftm354[address] [place], [place] [address]Dr. Anjali Reagan BAND % Normal 0-5 [facility] Comment on above: Performed By: #### C BCFIONA ####[facility] Uqrlzbflrr1553 [place] [address]Dr. Anjali Reagan BASOM # 0.00 103/ul Normal 0.00-0.10 [facility] Comment on above: Performed By: #### C BCFIONA ####[facility] Jbvsbotyqh2581 [place] [address]Dr. Anjali Reagan BASOM % 0.0 % Critically low 0.2-2.0 [facility] Comment on above: Performed By: #### C BCFIONA ####[facility] Ejexgoedhx2577 [place] [address]Dr. Anjali Reagan BLAST # Normal [facility] Comment on above: Performed By: #### C CORI ####[facility] Uorgemoaqw[address] [place], [place] [address]Dr. Anjali Reagan BLAST % Normal [facility] Comment on above: Performed By: #### C BCFIONA ####[facility] Bqvqcwjmsl5285 [place] [address]Dr. Anjali Reagan CORRECTED WBC Normal 4.0-11.0 [facility] Comment on above: Performed By: #### C BCFIONA ####[facility] Rhswfmcquo6061 [place] [address]Dr. Anjali Reagan EOS # 0.00 103/ul Normal 0.00-0.70 [facility] Comment on above: Performed By: #### C BCFIONA ####[facility] Vunzkwykgn8270 [place] [address]Dr. Anjali Reagan EOS% 0.0 % Critically low 0.9-7.0 [facility] Comment on above: Performed By: #### C CORI ####[facility] Qjhaivulax858[address] [place], [place] [address]Dr. Anjali Reagan HCT 31.1 % Critically low 42.0-54.0 [facility] Comment on above: Performed By: #### C BCFIONA ####[facility] Zunhrltkmm3686 [place], [place] [address]Yn. Anjali Reagan HGB 9.6 g/dl Critically low 14.0-18.0 [facility] Comment on above: Performed By: #### Uzair PERSAUD ####[facility] Axdunbzvcv9109 [place], [place] [address]Tz. Anjali Reagan LYMPHM # 0.73 103/ul Critically low 1.20-3.80 [facility] Comment on above: Performed By: #### Uzair PERSAUD ####[facility] Vcduxnogel6881 [place] [id number]. Anjali Reagan LYMPHM% 7.0 % Critically low 20.5-60.0 [facility] Comment on above: Performed By: #### Uzair PERSAUD ####[facility] Ptwngbtzlv4421 [place] [phone]. Anjali Reagan MCH 25.1 pg Critically low 25.9-34.0 [facility] Comment on above: Performed By: #### Uzair PERSAUD ####[facility] Jpwrlotzjc3898 [place] [phone]. Anjali Reagan MCHC 30.9 g/dl Normal 29.9-35.2 [facility] Comment on above: Performed By: #### Uzair PERSAUD ####[facility] Wjavmcyxsi9913 [place] [phone]. Anjali Reagan MCV 81.4 fL Normal 80.0-94.0 [facility] Comment on above: Performed By: #### Uzair PERSAUD ####[facility] Aegsccgaut1512 [place] [phone]. Anjali Reagan METAMYELOCYTE # Normal [facility] Comment on above: Performed By: #### Uzair PERSAUD ####[facility] Lgdgjjzriq9488 [place] [phone]. Anjali Reagan METAMYELOCYTE % Normal [facility] Comment on above: Performed By: #### Uzair PERSAUD ####[facility] Eglobsyojn1184 [place] [phone]. Anjali Reagan MONOM# 0.31 103/ul Normal 0.30-0.80 [facility] Comment on above: Performed By: #### C CORI ####[facility] Llofarnmep3174 [place] [phone]. Anjali Reagan MONOM% 3.0 % Normal 1.7-12.0 [facility] Comment on above: Performed By: #### C CORI ####[facility] Pcdqzrclhl1347 [place] [phone]. Anjali Reagan MPV 9.9 fL Normal 9.5-13.5 [facility] Comment on above: Performed By: #### C CORI ####[facility] Deuudywszz9177 [place] [phone]. Anjali Reagan MYELOCYTE # Normal [facility] Comment on above: Performed By: #### C CORI ####[facility] Iknzjlooxr7505 [place] [address]Dr. Anjali Reagan MYELOCYTE % Normal [facility] Comment on above: Performed By: #### C CORI ####[facility] Lpiercbbbz5454 [place] [address]Dr. Anjali Reagan NRBC Normal [facility] Comment on above: Performed By: #### C CORI ####[facility] Mjcltnqfou[address] [place], [place] [address]Dr. Anjali Reagan OVALOCYTES SLIGHT Normal [facility] Comment on above: Performed By: #### C CORI ####[facility] Fpckmevadt7569 [place] [phone]. Anjali Reagan PLT 211 103/ul Normal 150-450 [facility] Comment on above: Performed By: #### C CORI ####[facility] Pzhjartddn0407 [place] [phone]. Anjali Reagan POIKILOCYTOSIS SLIGHT Normal [facility] Comment on above: Performed By: #### C CORI ####[facility] Pkdzlmxsln1690 [place] [phone]. Anjali Reagan RBC 3.82 106/ul Critically low 4.70-6.10 [facility] Comment on above: Performed By: #### C CORI ####[facility] Xxyxqsmodi6384 [place], [place] [address]Bk. Anjali Reagan RDW 18.4 % Critically high 11.0-15.0 [facility] Comment on above: Performed By: #### C CORI ####[facility] Gsggcmlnir7091 [place], [place] [address]Kz. Anjali Reagan SEG # 9.36 103/ul Critically high 1.40-6.[address] [facility] Comment on above: Performed By: #### C CORI ####[facility] Xmrectmvkb1067 [place], [place] [address]Vw. Anjali Reagan SEG % 90.0 % Critically high 43.0-75.0 [facility] Comment on above: Performed By: #### C CORI ####[facility] Xnmxbrpgim3339 [place] [phone]. Anjali Reagan WBC 10.4 103/ul Normal 4.0-11.0 [facility] Comment on above: Performed By: #### Uzair PERSAUD ####[facility] Japcstrybu3806 [place], [place] [address]Kv. Anjali Reagan HEP B SURFACE ANTIGEN SCREEN on 02-09-2021 HBsAg Screen Negative Normal Negative [facility] Comment on above: Performed By: #### H BIANCANS ####[facility] Rlghlevjvf1424 [place] [phone]. Anjali Reagan HEPATITIS C ANTIBODYon 02-09 Hep C Virus Ab <0.1 Normal 0.0-0.9 [facility] Comment on above: Result Comment: Nega tive: < 0.8 Indeterminate: 0.8 - 0.9 Positive: > 0.9 . The CDC recommends that a positive HCV antibody result be followed up with a HCV Nucleic Acid Amplification test (225448). Performed By: #### H CV ####[facility] Bbrzpngzlz9268 [place] [phone]. Anjali Reagan HIV 1 AND 2 WITH REFLEXon HIV Screen 4th Generation wRfx Non-Reactive Normal Non Reactive [facility] Comment on above: Performed By: #### H IV12 ####[facility] Ngfrjtxdcf6423 [place] [address]Dr. Anjali Reagan POINT OF CARE GLUCOSEon 01-31 Glucose [Mass/Vol] 170 mg/dL Critically high -106 [facility] Comment on above: Performed By: #### P OCGLUC ####[facility] Ckeypwubvh9240 [place] [phone]. Anjali Reagan Glucose [Mass/Vol] 265 mg/dL Critically high -106 [facility] Comment on above: Performed By: #### P OCGLUC ####[facility] Jzhyxwxwjg0510 [place] [address]Dr. Anjali Reagan Glucose [Mass/Vol] 319 mg/dL Critically high -106 [facility] Comment on above: Performed By: #### P OCGLUC ####[facility] Hhmbzhusma0729 [place] [address]Dr. Anjali Reagan PROF 14(COMP METB)on 021 Albumin [Mass/Vol] 2.8 g/dL Critically low 3.5-5.0 [facility] Comment on above: Performed By: #### C MP ####[facility] Apgejjcslk1211 [place] [address]Dr. Anjali Reagan Albumin/Globulin [Mass ratio] 0.7 {ratio} Normal [facility] Comment on above: Performed By: #### C MP ####[facility] Ezsvrruumo2807 [place] [address]Dr. Anjali Reagan ALP [Catalytic activity/Vol] 117 U/L Normal 38-126 [facility] Comment on above: Performed By: #### C MP ####[facility] Ecerrecdda8316 [place] [address]Dr. Anjali Reagan ALT [Catalytic activity/Vol] 21 U/L Normal 21-72 [facility] Comment on above: Performed By: #### C MP ####[facility] Tqjlshaczv9325 [place] [address]Dr. Anjali Reagan Anion gap [Moles/Vol] 13.0 mmol/L Normal [facility] Comment on above: Performed By: #### C MP ####[facility] Arjdlxkmlv3453 [place] [phone]. Anjali Reagan AST [Catalytic activity/Vol] 21 U/L Normal 17-59 [facility] Comment on above: Performed By: #### C MP ####[facility] Whojcwfjth3925 [place] [address]Dr. Anjali Reagan Bilirubin [Mass/Vol] 0.5 mg/dL Normal 0.2-1.3 [facility] Comment on above: Performed By: #### C MP ####[facility] Ojziwceikr5265 [place] [address]Dr. Anjali Reagan Calcium [Mass/Vol] 9.3 mg/dL Normal 8.4-10.2 [facility] Comment on above: Performed By: #### C MP ####[facility] Pypuynyird9[address] [place], [place] [address]Dr. Anjali Reagan Chloride [Moles/Vol] 100 mmol/L Normal 98-107 [facility] Comment on above: Performed By: #### C MP ####[facility] Htuxpipzjq[address] [place], [place] [address]Dr. Anjali Reagan CO2 [Moles/Vol] 27.5 mmol/L Normal 22.0-30.0 [facility] Comment on above: Performed By: #### C MP ####[facility] Nkgaykthwt3306 [place] [phone]. Anjali Reagan Creatinine [Mass/Vol] 1.49 mg/dL Critically high 0.66-1.25 [facility] Comment on above: Performed By: #### C MP ####[facility] Rgjokkwgpd2536 [place] [address]Dr. Anjali Reagan EGFR-AF [place] 58 mL/min/1.73m2 Critically low >=60 [facility] Comment on above: Performed By: #### C MP ####[facility] Uwourgktou1090 [place] [phone]. Anjali Tez EGFR-NON AF [place] 48 mL/min/1.73m2 Critically low >=60 [facility] Comment on above: Performed By: #### C MP ####[facility] Vhljrjywtk7714 [place] [address]Dr. Anjali Reagan Globulin (S) [Mass/Vol] 4.2 g/dL Normal [facility] Comment on above: Performed By: #### C MP ####[facility] Ealybcdmvy8443 [place] [phone]. Anjali Reagan Glucose [Mass/Vol] 276 mg/dL Critically high 74-106 [facility] Comment on above: Performed By: #### C MP ####[facility] Kxojpnxvpn2619 [place] [address]Dr. Anjali Reagan Potassium [Moles/Vol] 4.5 mmol/L Normal 3.4-5.0 [facility] Comment on above: Performed By: #### C MP ####[facility] Lxirozexlp7313 [place] [address]Dr. Anjali Reagan Protein [Mass/Vol] 7.0 g/dL Normal 6.1-8.2 [facility] Comment on above: Performed By: #### C MP ####[facility] Avsqpwhyco6147 [place] [address]Dr. Anjali Reagan Sodium [Moles/Vol] 136 mmol/L Critically low 137-145 [facility] Comment on above: Performed By: #### C MP ####[facility] Lecabhehye3763 [place] [address]Dr. Anjali Reagan Urea nitrogen [Mass/Vol] 42.0 mg/dL Critically high 9.0-20 .0 [facility] Comment on above: Performed By: #### C MP ####[facility] Mgamqoryda5719 [place] [address]Dr. Anjali Reagan Urea nitrogen/Creatinine [Mass ratio] 28.2 mg/mg Normal [facility] Comment on above: Performed By: #### C MP ####[facility] Xqyogssvjd1367 [place] [address]Dr. Anjali Tez RPR QUANTon 02-09-2021 Rapid Plasma Reagin, Quant Non-Reactive Normal NonRea<1:1 [facility] Comment on above: Performed By: #### R PRQ ####[facility] Yomlvatjrf5224 [place] [address]Dr. Anjali Reagan XR ANKLE RT 2Von 02-09-2021 XR ANKLE RT 2V Normal [facility] XR TIB_FIB RT 2Von 1 XR TIB_FIB RT 2V Normal [facility] CRPon 02-08-2021 CRP 3.2 mg/dL Critically high <=1.0 [facility] Comment on above: Performed By: #### C RP ####[facility] Tewoiwtpgk388[address] [place], [place] [address]Dr. Biancaramona Reagan CULTURE ANAEROBICon 02-09-20 21 CULTURE ANAEROBIC Specimen Comments: RIGHT FOOT IRRIGATION SWAB Culture Observations: NO GROWTH AT 72 HRS Normal [facility] Comment on above: Performed By: #### A NACX ####[facility] Acbwzhsiav977[address] [place], [place] [address]Dr. Yilan Reagan CULTURE ANAEROBIC Specimen Comments: RIGHT LEG REAMINGS Culture Observations: NO GROWTH OF ANAEROBES AT 72 HOURS. Normal [facility] Comment on above: Performed By: #### A NACX ####[facility] Lqjpmbuaqr257[address] [place], [place] [address]Dr. Yilan Reagan CULTURE ANAEROBIC Culture Observations : NO GROWTH AT 72 HRS Normal [facility] Comment on above: Performed By: #### A NACX ####[facility] Ryjfrmxzma4535 [place] [phone]. Yilan Reagan CULTURE ANAEROBIC Specimen Comments: RIGHT TIBIA BONE Culture Observations: NO GROWTH AT 72 HRS Normal [facility] Comment on above: Performed By: #### A NACX ####[facility] Sdmydujaib9928 [place] [phone]. Yilan Reagan CULTURE ANAEROBIC Specimen Comments: RIGHT CALCANEOUS BONE Culture Observations: NO GROWTH OF ANAEROBES AT 72 HOURS. Normal [facility] Comment on above: Performed By: #### A NACX ####[facility] Dqhgpiucbo57[address] [place], [place] [address]Dr. Yilan Reagan CULTURE ANAEROBIC Specimen Comments: RIGHT ANKLE ABSCESS Culture Observations: NO GROWTH AT 72 HRS Normal [facility] Comment on above: Performed By: #### A NACX ####[facility] Wytasqtosl804[address] [place], [place] [address]Dr. Anjali Reagan CULTURE OTHERon 02-08-2021 CULTURE OTHER Specimen Comments: RIGHT LEG REAMINGS Culture Observations: NORMAL SKIN ARELI. Normal [facility] Comment on above: Performed By: #### O THCX ####[facility] Barlvejyer6[address] [place], [place] [address]Dr. Yilan Reagan CULTURE OTHER Specimen Comments: RIGHT FOOT IRRIGATION SWAB Culture Observations: NO GROWTH AT 72 HRS [facility] Comment on above: Performed By: #### O THCX ####[facility] Akmfsgwohr035[address] [place], [place] [address]Dr. Yilan Reagan CULTURE OTHER Specimen Comments: RIGHT CALCANEOUS BONE Culture Observations: NORMAL SKIN ARELI. Normal [facility] Comment on above: Performed By: #### O THCX ####[facility] Dxunzrqkhj2552[address] [place], [place] [address]Dr. Yilan Reagan CULTURE OTHER Specimen Comments: RIGHT TIBIA BONE Culture Observations: NO GROWTH AT 72 HRS [facility] Comment on above: Performed By: #### O THCX ####[facility] Owpwgjdcgl017[address] [place], [place] [address]Dr. Yiramona Reagan CULTURE OTHER Specimen Comments: RIGHT TALUS BONE Culture Observations: NORMAL SKIN ARELI. Normal [facility] Comment on above: Performed By: #### O THCX ####[facility] Uepodkabbw6[address] [place], [place] [address]Dr. Yilan Reagan CULTURE OTHER Specimen Comments: RIGHT ANKLE ABSCESS Culture Observations: NO GROWTH AT 72 HRS [facility] Comment on above: Performed By: #### O THCX ####[facility] Ljvedhsojr737[address] [place], [place] [address]Dr. Anjali Reagan GRAM STAINon 02-08-2021 COMMENTS NO ORGANISMS OBSERVED [facility] Comment on above: Performed By: #### G STAIN ####[facility] Galkzgnthq83[address] [place], [place] [address]Dr. Yilan Reagan DIPHTHEROIDS Normal [facility] Comment on above: Performed By: #### G STAIN ####[facility] Rrgfxafdxd4359 [place] [address]Dr. Anjali Reagan EPITHELIALS Normal [facility] Comment on above: Performed By: #### G STAIN ####[facility] Zzezwjiapw0716 [place] [address]Dr. Anjali Reagan FUNGAL ELEMENTS Normal [facility] Comment on above: Performed By: #### G STAIN ####[facility] Imnxzqhlzo0027 [place] [address]Dr. Anjali Reagan GRAM NEG BACILLI Normal [facility] Comment on above: Performed By: #### G STAIN ####[facility] Zrkjenhiej195[address] [place], [place] [address]Dr. Anjali Reagan GRAM NEG DIPPLOCOCCI Normal [facility] Comment on above: Performed By: #### G STAIN ####[facility] Tkjcjcerzx125[address] [place], [place] [address]Dr. Anjali Reagan GRAM POS BACILLI Normal [facility] Comment on above: Performed By: #### G STAIN ####[facility] Ewbgoepsxs860[address] [place], [place] [address]Dr. Anjali Reagan GRAM POSITIVE COCCI Normal [facility] Comment on above: Performed By: #### G STAIN ####[facility] Dtshldcrvh128[address] [place], [place] [address]Dr. Anjali Reagan GRAM STAIN SOURCE RIGHT LEG REAMINGS Normal [facility] Comment on above: Performed By: #### G STAIN ####[facility] Grdigszubz9557 [place] [address]Dr. Anjali Reagan GRAM STAIN SOURCE RIGHT FOOT POST IRRIGATION SWAB Normal [facility] Comment on above: Performed By: #### G STAIN ####[facility] Mqzjmjakmy18[address] [place], [place] [address]Dr. Anjali Reagan GS_DIPTH Normal [facility] Comment on above: Performed By: #### G STAIN ####[facility] Hasuqfuloq224[address] [place], [place] [address]Dr. Anjali Reagan WBC MODERATE Normal [facility] Comment on above: Performed By: #### G STAIN ####[facility] Lwxtshpsst2364 [place] [phone]. Anjali Reagan WBC NONE SEEN Normal [facility] Comment on above: Performed By: #### G STAIN ####[facility] Iehkvveayr1388 [place] [phone]. Anjali Reagan COMMENTS NO ORGANISMS OBSERVED Normal [facility] Comment on above: Performed By: #### G STAIN ####[facility] Iazdzyxsxc8957 [place] [address]Dr. Anjali Reagan DIPHTHEROIDS Normal [facility] Comment on above: Performed By: #### G STAIN ####[facility] Lutrgntbnm[address] [place], [place] [address]Dr. Anjali Reagan EPITHELIALS Normal [facility] Comment on above: Performed By: #### G STAIN ####[facility] [address]xwbsogqal06[address] [place], [place] [address]Dr. Anjali Reagan FUNGAL ELEMENTS Normal [facility] Comment on above: Performed By: #### G STAIN ####[facility] Nqswazhkrt4286 [place] [address]Dr. Anjali Reagan GRAM NEG BACILLI Normal [facility] Comment on above: Performed By: #### G STAIN ####[facility] Xyreujbwtg3441 [place] [address]Dr. Anjali Reagan GRAM NEG DIPPLOCOCCI Normal [facility] Comment on above: Performed By: #### G STAIN ####[facility] Bmhknowmex4898 [place] [address]Dr. Anjali Reagan GRAM POS BACILLI Normal [facility] Comment on above: Performed By: #### G STAIN ####[facility] Sdgavmjplz7259 [place] [address]Dr. Anjali Reagan GRAM POSITIVE COCCI Normal [facility] Comment on above: Performed By: #### G STAIN ####[facility] Eojxjbkpnp4979 [place] [address]Dr. Anjali Reagan GRAM STAIN SOURCE RIGHT TIBIA BONE Normal [facility] Comment on above: Performed By: #### G STAIN ####[facility] Wqmnxmcjgw4586 [place] [phone]. Anjali Reagan GRAM STAIN SOURCE RIGHT CALCANEOUS BONE Normal [facility] Comment on above: Performed By: #### G STAIN ####[facility] Totjggssex5460 [place] [address]Dr. Anjali Reagan GRAM STAIN SOURCE RIGHT TALUS BONE Normal [facility] Comment on above: Performed By: #### G STAIN ####[facility] Sbpqxjwyol0051 [place] [address]Dr. Anjali Reagan GS_DIPTH Normal [facility] Comment on above: Performed By: #### G STAIN ####[facility] Ujgpkqyzqy6290 [place] [address]Dr. Anjali Reagan WBC NONE SEEN Normal [facility] Comment on above: Performed By: #### G STAIN ####[facility] Chllnshxmg8182 [place] [address]Dr. Anjali Reagan WBC FEW Normal [facility] Comment on above: Performed By: #### G STAIN ####[facility] Pdtcogjubm8295 [place] [address]Dr. Anjali Reagan COMMENTS NO ORGANISMS OBSERVED Normal [facility] Comment on above: Performed By: #### G STAIN ####[facility] Nsmklanrtc4211 [place] [address]Dr. Anjali Reagan DIPHTHEROIDS Normal [facility] Comment on above: Performed By: #### G STAIN ####[facility] Dirxykmzyu2093 [place] [address]Dr. Anjali Reagan EPITHELIALS Normal [facility] Comment on above: Performed By: #### G STAIN ####[facility] Mgmfztbeoy3065 [place] [address]Dr. Anjali Reagan FUNGAL ELEMENTS Normal [facility] Comment on above: Performed By: #### G STAIN ####[facility] Xlxgoumopv1782 [place] [address]Dr. Anjali Reagan GRAM NEG BACILLI Normal [facility] Comment on above: Performed By: #### G STAIN ####[facility] Hdstekuyqi0689 [place] [phone]. Anjali Reagan GRAM NEG DIPPLOCOCCI Normal [facility] Comment on above: Performed By: #### G STAIN ####[facility] Xmtltgrxdj4124 [place] [phone]. Anjali Reagan GRAM POS BACILLI Normal [facility] Comment on above: Performed By: #### G STAIN ####[facility] Kfextswkke1743 [place] [phone]. Anjali Reagan GRAM POSITIVE COCCI Normal [facility] Comment on above: Performed By: #### G STAIN ####[facility] Pcqcjspxwu20[address] [place], [place] [address]Dr. Anjali Reagan GRAM STAIN SOURCE RIGHT FOOT ABSCESS SWAB Normal [facility] Comment on above: Performed By: #### G STAIN ####[facility] Ydgvazmnlf[address] [place], [place] [address]Dr. Anjali Reagan GS_DIPTH Normal [facility] Comment on above: Performed By: #### G STAIN ####[facility] Lsqbotznmt999[address] [place], [place] [address]Dr. Anjali Reagan WBC RARE Normal [facility] Comment on above: Performed By: #### G STAIN ####[facility] Sibzpfqlju56[address] [place], [place] [address]Dr. Anjali Reagan HIV 1/2 RAPID (EXPOSURE ONLY )on 02-08-2021 HIV AB Negative [facility] Comment on above: Performed By: #### R PDHIV ####[facility] Yngwixaviw[address] [place], [place] [address]Dr. Anjali Reagan HIV AG Negative Normal [facility] Comment on above: Performed By: #### R PDHIV ####[facility] Dzcrupzjqz874[address] [place], [place] [address]Dr. Anjali Reagan INTERNAL CONTROLS Within Normal Limits Normal Wi thin Normal Limits [facility] Comment on above: Performed By: #### R PDHIV ####[facility] Yujxgpnjpo75[address] [place], [place] [address]Dr. Anjali Reagan RAPID HIV INFO SEE BELOW Normal [facility] Comment on above: Result Comment: This test is used for the initial screening of the exposure source. Confirmation of all results will be obtained through reference lab testing. Performed By: #### R PDHIV ####[facility] Mtnwesitez014[address] [place], [place] [address]Dr. Anjali Reagan POINT OF CARE GLUCOSEon 11-0 Glucose [Mass/Vol] 400 mg/dL Critically high 74-106 [facility] Comment on above: Performed By: #### P OCGLUC ####[facility] Fqdriebaqu538[address] [place], [place] [address]Dr. Anjali Reagan Glucose [Mass/Vol] 373 mg/dL Critically high -106 [facility] Comment on above: Performed By: #### P OCGLUC ####[facility] Mxdeqpzkaq532[address] [place], [place] [address]Dr. Anjali Reagan Glucose [Mass/Vol] 159 mg/dL Critically high -106 [facility] Comment on above: Performed By: #### P OCGLUC ####[facility] Lfcyneugcs497[address] [place], [place] [address]Dr. Anjali Reagan Glucose [Mass/Vol] 160 mg/dL Critically high -106 [facility] Comment on above: Performed By: #### P OCGLUC ####[facility] Batmszfmpg023[address] [place], [place] [address]Dr. Anjali Reagan SED RATE WESTERGRENon 2020 SED RATE 51 mm/hr Critically high <=20 [facility] Comment on above: Performed By: #### S EDR ####[facility] Njkbpkvxcu1765[address] [place], [place] [address]Dr. Anjali Reagan CBC W MANUAL DIFFon 02-06-20 21 ATYPICAL LYMPH # Normal [facility] Comment on above: Performed By: #### C BCMAN ####[facility] Knuotczlbi79[address] [place], [place] [address]Dr. Anjali Tez ATYPICAL LYMPH % Normal [facility] Comment on above: Performed By: #### C BCMAN ####[facility] Fdgzswoopo[address] [place], [place] [address]Dr. Anjali Reagan BAND # 0.2 103/ul Normal 0.0-0.3 [facility] Comment on above: Performed By: #### C BCMAN ####[facility] Wqvfhulurf87[address] [place] [address]Dr. Anjali Reagan BAND % 3 % Normal 0-5 [facility] Comment on above: Performed By: #### C BCMAN ####[facility] Vmvwlxblib8411 [place] [id number]. Anjali Reagan BASOM # 0.07 103/ul Normal 0.00-0.10 [facility] Comment on above: Performed By: #### C BCFIONA ####[facility] Kzgnlzywfh8838 [place] [address]Dr. Anjali Reagan BASOM % 1.0 % Normal 0.2-2.0 [facility] Comment on above: Performed By: #### C CORI ####[facility] Flpsdhfnih1564 [place] [address]Dr. Anjali Reagan BLAST # Normal [facility] Comment on above: Performed By: #### C CORI ####[facility] Uoankrueat9858 [place] [address]Dr. Anjali Reagan BLAST % Normal [facility] Comment on above: Performed By: #### C BCFIONA ####[facility] Qsmdmvyrnm2615 [place] [id number]. Anjali Reagan CORRECTED WBC Normal 4.0-11.0 [facility] Comment on above: Performed By: #### C BCFIONA ####[facility] Crgwcemgkd1147 [place] [id number]. Anjali Reagan EOS # 0.57 103/ul Normal 0.00-0.70 [facility] Comment on above: Performed By: #### C BCFIONA ####[facility] Gaybzsfmli6178 [place] [address]Dr. Anjali Reagan EOS% 8.0 % Critically high 0.9-7.0 [facility] Comment on above: Performed By: #### C CORI ####[facility] Punkhegsxa[address] [place], [place] [address]Dr. Anjali Reagan HCT 32.9 % Critically low 42.0-54.0 [facility] Comment on above: Performed By: #### C CORI ####[facility] Apxtzbxppn0782 [place] [id number]. Anjali Reagan HGB 10.2 g/dl Critically low 14.0-18.0 [facility] Comment on above: Performed By: #### C CORI ####[facility] Miibkknopz8509 [place] [phone]. Anjali Reagan LYMPHM # 0.78 103/ul Critically low 1.20-3.80 [facility] Comment on above: Performed By: #### C CORI ####[facility] Oqzocalvny064[address] [place], [place] [address]Dr. Anjali Reagan LYMPHM% 11.0 % Critically low 20.5-60.0 [facility] Comment on above: Performed By: #### C CORI ####[facility] Albkalsalx2033[address] [place], [place] [address]Dr. Anjali Reagan MCH 24.9 pg Critically low 25.9-34.0 [facility] Comment on above: Performed By: #### Uzair PERSAUD ####[facility] Flwxsxhnnj46[address] [place], [place] [address]Dr. Anjali Reagan MCHC 31.0 g/dl Normal 29.9-35.2 [facility] Comment on above: Performed By: #### Uzair PERSAUD ####[facility] [address]mxztf[address] [place], [place] [address]Dr. Anjali Reagan MCV 80.4 fL Normal 80.0-94.0 [facility] Comment on above: Performed By: #### C CORI ####[facility] Fqciizztia4[address] [place], [place] [address]Dr. Anjali Reagan METAMYELOCYTE # Normal [facility] Comment on above: Performed By: #### C CORI ####[facility] Jidfwxyjjq32[address] [place], [place] [address]Dr. Anjali Reagan METAMYELOCYTE % Normal [facility] Comment on above: Performed By: #### C CORI ####[facility] Vtuvsbwvia7238 [place] [phone]. Anjali Reagan MONOM# 0.57 103/ul Normal 0.30-0.80 [facility] Comment on above: Performed By: #### C CORI ####[facility] Nurshziyab9888 [place] [phone]. Anjali Reagan MONOM% 8.0 % Normal 1.7-12.0 [facility] Comment on above: Performed By: #### C CORI ####[facility] Chnsjxdxny4456 [place] [phone]. Anjali Reagan MPV 9.2 fL Critically low 9.5-13.5 [facility] Comment on above: Performed By: #### Uzair PERSAUD ####[facility] Psdhrctnaa[address] [place], [place] [address]Dr. Anjali Reagan MYELOCYTE # Normal [facility] Comment on above: Performed By: #### Uzair PERSAUD ####[facility] Irvohzwaix157[address] [place], [place] [address]Dr. Anjali Reagan MYELOCYTE % Normal [facility] Comment on above: Performed By: #### Uzair PERSAUD ####[facility] Bhkcgjnfop612[address] [place], [place] [address]Dr. Anjali Reagan NRBC Normal [facility] Comment on above: Performed By: #### Uzair PERSAUD ####[facility] Mrueerifhi8490 [place] [address]Dr. Anjali Reagan OVALOCYTES 1+ Normal [facility] Comment on above: Performed By: #### C CORI ####[facility] Mllagqwzex[address] [place], [place] [address]Dr. Anjali Reagan PLT 209 103/ul Normal 150-450 [facility] Comment on above: Performed By: #### C CORI ####[facility] Qemwymhqel[address] [place], [place] [address]Dr. Anjali Reagan RBC 4.09 106/ul Critically low 4.70-6.10 [facility] Comment on above: Performed By: #### C CORI ####[facility] Elqlrbedpu2539 [place], [place] [address]Dr. Anjali Reagan RDW 18.2 % Critically high 11.0-15.0 [facility] Comment on above: Performed By: #### C CORI ####[facility] Lmsxufbgdz5901 [place], [place] [address]Bv. Anjali Reagan SEG # 4.90 103/ul Normal 1.40-6.50 [facility] Comment on above: Performed By: #### C CORI ####[facility] Adxtrcpsbq6389 [place], [place] [address]Ev. Anjali Reagan SEG % 69.0 % Normal 43.0-75.0 [facility] Comment on above: Performed By: #### C CORI ####[facility] Fgqirzqwal1010 [place], [place] [address]Im. Anjali Reagan WBC 7.1 103/ul Normal 4.0-11.0 [facility] Comment on above: Performed By: #### Uzair PERSAUD ####[facility] Ggxozlkgua2585 [place], [place] [address]Gl. Anjali Reagan CT ABD/PELVIS WO CONon 02-05 CT ABD/PELVIS WO CON Normal [facility] Covid-19 PCR ([facility])on SARS-CoV-2 (COVID-19) RNA MEREDITH+probe Ql (Unsp spec) Not detected Normal NOT DETECTED [facility] Comment on above: Result Comment: This test is not yet approved or cleared by the [place] FDA. When there are no FDA-approved or cleared tests available, and other criteria are met, FDA can make tests available under an emergency access mechanism called an Emergency Use Authorization (EUA). The EUA for this test is supported by the Heating Element Repairer of Health and Human Service's (HHS's) declaration [...] symptomsconsistent with SARS-CoV-2. Performed By: #### C [facility] ####[facility] Uxjhascfou[address] [place], [place] [address]Dr. Anjali Reagan ER URINE PROFILEon 1 Bilirubin Ql (U) Negative Normal NEGATIVE [facility] Comment on above: Performed By: #### E RUR ####[facility] Mfnebikzdo49[address] [place], [place] [address]Dr. Biancalan Reagan Clarity (U) CLEAR Normal CLEAR [facility] Comment on above: Performed By: #### E RUR ####[facility] Qyiambamzi095[address] [place], [place] [address]Dr. Yilan Reagan Color (U) LT. YELLOW Normal YELLOW [facility] Comment on above: Performed By: #### E RUR ####[facility] Nuupnssepz1136[address] [place], [place] [address]Dr. Anjali Reagan ERUAHD A micrscopic examination will be performed if indicated. Normal [facility] Comment on above: Performed By: #### E RUR ####[facility] Lkcuhebqca370[address] [place], [place] [address]Dr. Yilan Reagan Glucose Ql (U) Negative Normal NEGATIVE [facility] Comment on above: Performed By: #### E RUR ####[facility] Hnoirdzdkj2934[address] [place], [place] [address]Dr. Yilan Reagan Hemoglobin Ql (U) Negative Normal NEGATIVE [facility] Comment on above: Performed By: #### E RUR ####[facility] Eqqlyxurap913[address] [place], [place] [address]Dr. Yilan Reagan Ketones Ql (U) Negative Normal NEGATIVE [facility] Comment on above: Performed By: #### E RUR ####[facility] Jwktogzyhi4427[address] [place], [place] [address]Dr. Yilan Reagan LEUKOCYTES Negative Normal NEGATIVE [facility] Comment on above: Performed By: #### E RUR ####[facility] Xjpzjzqwbd7900 [place] [address]Dr. Anjali Reagan Nitrite Ql (U) Negative Normal NEGATIVE [facility] Comment on above: Performed By: #### E RUR ####[facility] Nsphlaxyif0387 [place] [address]Dr. Anjali Reagan pH (U) 6.0 [pH] Normal 5-9 [facility] Comment on above: Performed By: #### E RUR ####[facility] Pmjqazqqrf960[address] [place], [place] [address]Dr. Anjali Reagan SPEC GRAVITY 1.015 Normal 1.005-<=1.0 25 [facility] Comment on above: Performed By: #### E RUR ####[facility] Kjctqhjmkl[address] [place], [place] [address]Dr. Anjali Reagan UA PROTEIN TRACE Normal NEGATIVE/ TRACE [facility] Comment on above: Performed By: #### E RUR ####[facility] Hlxkuflkzi2936[address] [place], [place] [address]Dr. Anjali Reagan UR MICRO IND NOT INDICATED Normal [facility] Comment on above: Performed By: #### E RUR ####[facility] Azzefyicpu140[address] [place], [place] [address]Dr. Anjali Reagan Urobilinogen Qn (U) 0.2 {Geremias'U}/dL Normal 0.2 - 1. 0 [facility] Comment on above: Performed By: #### E RUR ####[facility] Ahrdhgdnht296[address] [place], [place] [address]Dr. Anjali Reagan PROF 14(COMP METB)on 021 Albumin [Mass/Vol] 2.8 g/dL Critically low 3.5-5.0 [facility] Comment on above: Performed By: #### C MP ####[facility] Rbcwqviacg09[address] [place], [place] [address]Dr. Anjali Reagan Albumin/Globulin [Mass ratio] 0.6 {ratio} Normal [facility] Comment on above: Performed By: #### C MP ####[facility] Fnxgbmhhnf9965 [place] [id number]. Anjali Reagan ALP [Catalytic activity/Vol] 125 U/L Normal 38-126 [facility] Comment on above: Performed By: #### C MP ####[facility] Frxxnrpjsg3197 [place] [address]Dr. Anjali Reagan ALT [Catalytic activity/Vol] 22 U/L Normal 21-72 [facility] Comment on above: Performed By: #### C MP ####[facility] Gxiooyicjl2539[address] [place], [place] [address]Dr. Anjali Reagan Anion gap [Moles/Vol] 13.1 mmol/L Normal e [facility] Comment on above: Performed By: #### C MP ####[facility] Ljkiltvpqu232[address] [place], [place] [address]Dr. Anjali Reagan AST [Catalytic activity/Vol] 26 U/L Normal 17-59 [facility] Comment on above: Performed By: #### C MP ####[facility] Unwezvpizq837[address] [place], [place] [address]Dr. Anjali Reagan Bilirubin [Mass/Vol] 0.8 mg/dL Normal 0.2-1.3 [facility] Comment on above: Performed By: #### C MP ####[facility] Cgyhvbndbc4313[address] [place], [place] [address]Dr. Anjali Reagan Calcium [Mass/Vol] 9.2 mg/dL Normal 8.4-10.2 [facility] Comment on above: Performed By: #### C MP ####[facility] Oxdlgrlpct3765[address] [place], [place] [address]Dr. Anjali Tez Chloride [Moles/Vol] 98 mmol/L Normal 98-107 [facility] Comment on above: Performed By: #### C MP ####[facility] Jztcdirkbf2750[address] [place], [place] [address]Dr. Anjali Reagan CO2 [Moles/Vol] 28.7 mmol/L Normal 22.0-30.0 [facility] Comment on above: Performed By: #### C MP ####[facility] Vlfgiydsxe880[address] [place], [place] [address]Dr. Anjali Reagan Creatinine [Mass/Vol] 1.62 mg/dL Critically high 0.66-1.25 [facility] Comment on above: Performed By: #### C MP ####[facility] Zxzcqxfrlz4721 [place] [address]Dr. Anjali Reagan EGFR-AF [place] 52 mL/min/1.73m2 Critically low >=60 [facility] Comment on above: Performed By: #### C MP ####[facility] Blfagkhihp6651 [place] [address]Dr. Anjali Reagan EGFR-NON AF [place] 43 mL/min/1.73m2 Critically low >=60 [facility] Comment on above: Performed By: #### C MP ####[facility] Yctgjuwrim0426 [place] [address]Dr. Anjali Reagan Globulin (S) [Mass/Vol] 4.6 g/dL Normal [facility] Comment on above: Performed By: #### C MP ####[facility] Oovgcsypvu2199 [place] [address]Dr. Anjali Reagan Glucose [Mass/Vol] 192 mg/dL Critically high 74-106 [facility] Comment on above: Performed By: #### C MP ####[facility] Icagqvdady[address] [place], [place] [address]Dr. Anjali Reagan Potassium [Moles/Vol] 4.8 mmol/L Normal 3.4-5.0 [facility] Comment on above: Performed By: #### C MP ####[facility] Vzvxkdfxjl7489 [place] [address]Dr. Anjali Tez Protein [Mass/Vol] 7.4 g/dL Normal 6.1-8.2 [facility] Comment on above: Performed By: #### C MP ####[facility] Ifibespllu635[address] [place], [place] [address]Dr. Anjali Reagan Sodium [Moles/Vol] 135 mmol/L Critically low 137-145 [facility] Comment on above: Performed By: #### C MP ####[facility] Omkxsnkbpz30[address] [place], [place] [address]Dr. Anjali Reagan Urea nitrogen [Mass/Vol] 40.0 mg/dL Critically high 9.0-20 .0 [facility] Comment on above: Performed By: #### C MP ####[facility] Zhihimlavr126[address] [place], [place] [address]Dr. Anjali Reagan Urea nitrogen/Creatinine [Mass ratio] 24.7 mg/mg Normal [facility] Comment on above: Performed By: #### C MP ####[facility] Vygmdclrvo913[address] [place], [place] [address]Dr. Anjali Reagan PROF CHEM 8 (BAS METB)on Anion gap [Moles/Vol] 13.4 mmol/L Normal [facility] Comment on above: Performed By: #### B MP ####[facility] Vrqtwdunwq875[address] [place], [place] [address]Dr. Anjali Reagan Calcium [Mass/Vol] 9.3 mg/dL Normal 8.4-10.2 [facility] Comment on above: Performed By: #### B MP ####[facility] Vhmvxhiybl018[address] [place], [place] [address]Dr. Anjali Reagan Chloride [Moles/Vol] 98 mmol/L Normal 98-107 [facility] Comment on above: Performed By: #### B MP ####[facility] Tawzazcxhk625[address] [place], [place] [address]Dr. Anjali Reagan CO2 [Moles/Vol] 28.8 mmol/L Normal 22.0-30.[address] [facility] Comment on above: Performed By: #### B MP ####[facility] Iljepkikbp939[address] [place], [place] [address]Dr. Anjali Reagan Creatinine [Mass/Vol] 1.72 mg/dL Critically high 0.66-1.25 [facility] Comment on above: Performed By: #### B MP ####[facility] Ywhgijdatk7[address] [place], [place] [address]Dr. Anjali Reagan EGFR-AF [place] 49 mL/min/1.73m2 Critically low >=60 [facility] Comment on above: Performed By: #### B MP ####[facility] Dkcmuuxczi6430 [place] [id number]. nAjali Reagan EGFR-NON AF [place] 40 mL/min/1.73m2 Critically low >=60 [facility] Comment on above: Performed By: #### B MP ####[facility] Hnrcwcoueu3369 [place] [address]Dr. Anjali Reagan Glucose [Mass/Vol] 204 mg/dL Critically high 74-106 [facility] Comment on above: Performed By: #### B MP ####[facility] Yyjdpsoqfk2308 [place] [address]Dr. Anjali Reagan Potassium [Moles/Vol] 4.2 mmol/L Normal 3.4-5.0 [facility] Comment on above: Performed By: #### B MP ####[facility] Jwcmkqxwbr5229 [place] [address]Dr. Anjali Reagan Sodium [Moles/Vol] 136 mmol/L Critically low 137-145 [facility] Comment on above: Performed By: #### B MP ####[facility] Mqilzzpcgg1660 [place] [address]Dr. Anjali Reagan Urea nitrogen [Mass/Vol] 35.0 mg/dL Critically high 9.0-20 .0 [facility] Comment on above: Performed By: #### B MP ####[facility] Nxvbaadtfc0192 [place] [address]Dr. Anjali Reagan Urea nitrogen/Creatinine [Mass ratio] 20.3 mg/mg Normal [facility] Comment on above: Performed By: #### B MP ####[facility] Johginvovt900[address] [place], [place] [address]Dr. Anjali Reagan CT ANKLE RT WO CONon 021 CT ANKLE RT WO CON Normal [facility] XR ANKLE RT MIN 3 VIEWSon XR ANKLE RT MIN 3 VIEWS Normal [facility] XR ANKLE RT MIN 3 VIEWSon XR ANKLE RT MIN 3 VIEWS Normal [facility] Otolaryngology Office/Clinic Noteon 01-19-2021 Otolaryngology Office/Clinic [...] Dr. Freed. Previous pathology by physician in [place] about 1 year ago. PMHx of multiple [...] 2. Basal (more content not included)... Normal [facility] BASIC METABOLIC PANEL W/O CA on 01-15-2021 Chloride [Moles/Vol] 98 mmol/L Normal 98-110 [facility] Comment on above: Order Comment: FASTI NG:YESFASTING: YES Performed By: #### 1 0165, 496, 905 #### [facility] [address], [address] [place] [address] Answerer: Juan Meraz MD CO2 [Moles/Vol] 26 mmol/L Normal 20-32 [facility] Comment on above: Order Comment: FASTI NG:YESFASTING: YES Performed By: #### 1 0165, 496, 905 #### [facility] [address], [address] [place] [address] Answerer: Juan Meraz MD Creatinine [Mass/Vol] 1.71 mg/dL High 0.70-1.[address] [facility] Comment on above: Order Comment: FASTI NG:YESFASTING: YES Result Comment: For patients >49 years of age, the reference limit for Creatinine is approximately 13% higher for people identified as -Latvian. Performed By: #### 1 0165, 496, 905 #### [facility] [address], [address] [place] [address] Answerer: Juan Meraz MD eGFR NON-AFR. [place] 42 mL/min/1.73m2 Low > OR = 60 [facility] Comment on above: Order Comment: FASTI NG:YESFASTING: YES Performed By: #### 1 0165, 496, 905 #### [facility] [address], [address] [place] [address] Answerer: Juan Meraz MD GFR/1.73 sq M.predicted among blacks MDRD (S/P/Bld) [Vol rate/Area] 48 mL/min/{1.73_m2} Low > OR = 60 [facility] Comment on above: Order Comment: FASTI NG:YESFASTING: YES Performed By: #### 1 0165, 496, 905 #### [facility] [place] [address] Answerer: Juan Meraz MD Glucose [Mass/Vol] 186 mg/dL High 65-99 [facility] Comment on above: Order Comment: FASTI NG:YESFASTING: YES Result Comment: Fasting reference interval For someone without known diabetes, a glucose value >125 mg/dL indicates that they may have diabetes and this should be confirmed with a follow-up test. Performed By: #### 1 0165, 49, 905 #### [facility] [place] [address] Answerer: Juan Meraz MD Potassium [Moles/Vol] 4.3 mmol/L Normal 3.5-5.[address] [facility] [address] [facility] Comment on above: Order Comment: FASTI NG:YESFASTING: YES Performed By: #### 1 0165, 498, 905 #### [facility] [place] [address] Answerer: Juan Meraz MD Sodium [Moles/Vol] 137 mmol/L Normal 135-146 [facility] Comment on above: Order Comment: FASTI NG:YESFASTING: YES Performed By: #### 1 0165, 496, 905 #### [facility] [place] [address] Answerer: Juan Meraz MD Urea nitrogen [Mass/Vol] 34 mg/dL High 7-25 [facility] Comment on above: Order Comment: FASTI NG:YESFASTING: YES Performed By: #### 1 0165, 496, 905 #### [facility] [place] [address] Answerer: Juan Meraz MD Urea nitrogen/Creatinine [Mass ratio] 20 mg/mg Normal 6-22 [facility] Comment on above: Order Comment: SALLIE NG:YESFASTING: YES Performed By: #### 1 0165, 496, 905 #### [facility] of [place] [address] Answerer: Juan Meraz MD CBC (INCLUDES DIFF/PLT)on Basophils (Bld) [#/Vol] 0.026 10*3/uL Normal 0-200 [facility] Comment on above: Performed By: #### 1 0165, 496, 905 #### [facility] of [place] [address] Answerer: Juan Meraz MD Basophils/100 WBC (Bld) 0.3 % Normal [facility] Comment on above: Performed By: #### 1 0165, 496, 905 #### [facility] of [place] [address] Answerer: Juan Meraz MD Eosinophils (Bld) [#/Vol] 0.202 10*3/uL Normal 15-500 [facility] Comment on above: Performed By: #### 1 0165, 496, 905 #### [facility] [place] [address] Answerer: Juan Meraz MD Eosinophils/100 WBC (Bld) 2.3 % Normal [facility] Comment on above: Performed By: #### 1 0165, 496, 905 #### [facility] of [place] [address] Answerer: Juan Meraz MD Erythrocyte distribution width (RBC) [Ratio] 15.7 % High 11.0-15.0 [facility] Comment on above: Performed By: #### 1 0165, 496, 905 #### [facility] of [place] [address] Answerer: Juan Meraz MD Hematocrit (Bld) [Volume fraction] 34.9 % Low 38.5-50.0 [facility] Comment on above: Performed By: #### 1 0165, 496, 905 #### [facility] of [place] [address] Answerer: Juan Meraz MD Hemoglobin (Bld) [Mass/Vol] 10.9 g/dL Low 13.2-17.1 [facility] Comment on above: Performed By: #### 1 016, 496, 905 #### [facility] [place] [address] Answerer: Juan Meraz MD Lymphocytes (Bld) [#/Vol] 0.748 10*3/uL Low [id number] [facility] Comment on above: Performed By: #### 1 164, 496, 905 #### [facility] of [place] [address] Answerer: Juan Meraz MD Lymphocytes/100 WBC (Bld) 8.5 % Normal [facility] Comment on above: Performed By: #### 1 164, 496, 905 #### [facility] [place] [address] Answerer: Juan Meraz MD MCH (RBC) [Entitic mass] 25.1 pg Low 27.0-33.0 [facility] Comment on above: Performed By: #### 1 164, 496, 905 #### [facility] of [place] [address] Answerer: Juan Meraz MD MCHC (RBC) [Mass/Vol] 31.2 g/dL Low 32.0-36.[address] [facility] Comment on above: Performed By: #### 1 016, 496, 905 #### [facility] [place] [address] Answerer: Juan Meraz MD MCV (RBC) [Entitic vol] 80.4 fL Normal 80.0-100.0 [facility] Comment on above: Performed By: #### 1 0165, 496, 905 #### [facility] [place] [address] Answerer: Juan Meraz MD Monocytes (Bld) [#/Vol] 0.889 10*3/uL Normal 200-950 [facility] Comment on above: Performed By: #### 1 0165, 496, 905 #### [facility] [place] [address] Answerer: Juan Meraz MD Monocytes/100 WBC (Bld) 10.1 % Normal [facility] Comment on above: Performed By: #### 1 0165, 496, 905 #### [facility] [place] [address] Answerer: Juan Meraz MD Neutrophils (Bld) [#/Vol] 6.934 10*3/uL Normal 7390-0917 [facility] Comment on above: Performed By: #### 1 0165, 496, 905 #### [facility] [place] [address] Answerer: Juan Meraz MD Neutrophils/100 WBC (Bld) 78.8 % Normal [facility] Comment on above: Performed By: #### 1 0165, 496, 905 #### [facility] [place] [address] Answerer: Juan Meraz MD Platelet mean volume (Bld) [Entitic vol] 9.9 fL Normal 7.5-12.5 [facility] Comment on above: Performed By: #### 1 0165, 496, 905 #### [facility] [place] [address] Answerer: Juan Meraz MD Platelets (Bld) [#/Vol] 353 10*3/uL Normal 140-400 [facility] Comment on above: Performed By: #### 1 0165, 496, 905 #### [facility] of [address] , [address] [place] [address] Answerer: Juan Meraz MD RBC (Bld) [#/Vol] 4.34 10*6/uL Normal 4.20-5.80 [facility] Comment on above: Performed By: #### 1 0165, 496, 905 #### [facility] [place] [address] [address] , [address] [place] [address] Answerer: Juan Meraz MD WBC (Bld) [#/Vol] 8.8 10*3/uL Normal 3.8-10.8 [facility] Comment on above: Performed By: #### 1 0165, 496, 905 #### [facility] [address], [address] [place] [address] Answerer: Juan Meraz MD Otolaryngology Office/Clinic Noteon 01-14-2021 [...] oral caps (more content not included)... Normal [facility] Otolaryngology Office/Clinic Noteon 01-12-2021 Otolaryngology Office/Clinic [...] Dr. Freed. Previous pathology by physician in [place] about 1 year ago. PMHx of multiple [...] separately bill (more content not included)... Normal [facility] Operative Reporton Operative Report Date: January [...] Chirag Gutierrez DO 01/11/21 20:09 EDT Normal [facility] Operative Report Date: January 11, 2021 [...] Chirag Gutierrez DO 01/11/21 09:28 EDT Normal [facility] POC Glucose Randomon 021 Glucose [Mass/Vol] 211 mg/dL High 70-99 [facility] Comment on above: Performed By: #### C D:[id number] ####[address] [address] CoV2 Agon 01-10-2021 Employed in healthcare? Unknown Normal [facility] Comment on above: Performed By: #### C D:[id number] ####[address] [address] Group care resident? Unknown Normal [facility] Comment on above: Performed By: #### C D:[id number] ####[address] [address] In ICU? No Normal [facility] Comment on above: Performed By: #### C D:[id number] ####[address] [address] status? Not Applicable [facility] Comment on above: Performed By: #### C D:[id number] ####[address] [address] SARS-CoV-2 (COVID-19) RNA MEREDITH+probe Ql (Unsp spec) Normal Negative [facility] Comment on above: Result Comment: * [...] Negative ADDITIONAL INFORMATION: Testing performed on the [facility] using the SARS-CoV-2 Antigen test. Results are for the identification of SARS-CoV-2 nucleocapsid antigen. The [employer] SARS-CoV-2 Antigen test can detect both viable [...] test results. In the [place], the [employer] SARS-CoV-2 Antigen test is only for use under the Food and Drug Administration?s Emergency Use Authorization. HCP Fact Sheet: https://www.fda.gov/media/967884/download Patient Fact Sheet: https://www.fda.gov/media/878050/download Performed By: #### C D:[id number] ####[address] [address] SARS-CoV-2 (COVID-19) RNA MEREDITH+probe Ql (Unsp spec) Unknown Normal [facility] Comment on above: Performed By: #### C D:[id number] ####[place] [id number] [place] [address] Symptomatic as defined by CDC? Unknown Normal [facility] Comment on above: Performed By: #### C D:[id number] ####[address] [address] BASIC METABOLIC PANELon 10-0 Calcium [Mass/Vol] 9.6 mg/dL Normal 8.6-10.3 [facility] Comment on above: Performed By: #### 1 8333, 496, 905 #### [facility] [address], [address] [place] [address] Answerer: Juan Meraz MD Chloride [Moles/Vol] 100 mmol/L Normal 98-110 [facility] Comment on above: Performed By: #### 1 0165, 496, 905 #### [facility] [place] [address] Answerer: Juan Meraz MD CO2 [Moles/Vol] 30 mmol/L Normal 20-32 [facility] Comment on above: Performed By: #### 1 0165, 49, 905 #### [facility] [place] [address] Answerer: Juan Meraz MD Creatinine [Mass/Vol] 1.67 mg/dL High 0.70-1.[address] [facility] Comment on above: Result Comment: For patients >49 years of age, the reference limit for Creatinine is approximately 13% higher for people identified as -[place]vian. Performed By: #### 1 016, 496, 905 #### [facility] [place] [address] Answerer: Juan Meraz MD eGFR NON-AFR. [place] 43 mL/min/1.73m2 Low > OR = 60 [facility] Comment on above: Performed By: #### 1 016, 495, 905 #### [facility] [place] [address] Answerer: Juan Meraz MD GFR/1.73 sq M.predicted among blacks MDRD (S/P/Bld) [Vol rate/Area] 50 mL/min/{1.73_m2} Low > OR = 60 [facility] Comment on above: Performed By: #### 1 016, 497, 905 #### [facility] [place] [address] Answerer: Juan Meraz MD Glucose [Mass/Vol] 124 mg/dL High 65-99 [facility] Comment on above: Result Comment: Fasting reference interval For someone without known diabetes, a glucose value between 100 and 125 mg/dL is consistent with prediabetes and should be confirmed with a follow-up test. Performed By: #### 1 0165, 496, 905 #### [facility] [address], [address] [place] [address] Answerer: Juan Meraz MD Potassium [Moles/Vol] 4.7 mmol/L Normal 3.5-5.[address] [facility] Comment on above: Performed By: #### 1 0165, 496, 905 #### [facility] [place] [address] Answerer: Juan Meraz MD Sodium [Moles/Vol] 138 mmol/L Normal 135-146 [facility] Comment on above: Performed By: #### 1 0165, 496, 905 #### [facility] [place] [address] Answerer: Juan Meraz MD Urea nitrogen [Mass/Vol] 40 mg/dL High 7-25 [facility] Comment on above: Performed By: #### 1 0165, 496, 905 #### [facility] [place] [address] Answerer: Juan Meraz MD Urea nitrogen/Creatinine [Mass ratio] 24 mg/mg High 6-22 [facility] Comment on above: Performed By: #### 1 0165, 496, 905 #### [facility] [place] [address] Answerer: Juan Meraz MD HEMOGLOBIN A1con 12-31-2020 HEMOGLOBIN [...] 1 0165, 496, 905 #### [facility] [address], [address] [place] [address] Answerer: Juan Meraz MD Provider Letteron 12-31-2020 Provider Letter [facility] Ear, Nose & Throat; Facial Plastic Surgery [address] [place] [address] P: [phone] F: [phone] [facility]ai [id number] Date of Visit: 01/05/2021 ATTENTION MEDICAL RECORDS: We are requesting pathology report for biopsy of left ear done within the last 2 years for patient Anai Goodman 59. Thank you, [facility]iragEwa [facility] Provider Letter [facility] Ear, Nose & Throat; Facial Plastic Surgery [address] [place], [place] [address] P: [phone] F: [phone] Chirag Gutierrez DO [facility] Re: Anai [id number] Date of Visit: 01/05/2021 ATTENTION MEDICAL RECORDS: We are requesting pathology report for biopsy of left ear done within the last 2 years for patient Anai Goodman. Thank you, ChiragEwa [facility] Provider Letter [facility] Ear, Nose & Throat; Facial Plastic Surgery [address] [place], [place] [address] P: [phone] F: [phone] [place] [address] Re: Anai [id number] Date of Visit: 01/05/2021 [...] prior to 01/05/21. Thank you, Muna Normal [facility] URIC ACIDon 12-31-2020 Urate [Mass/Vol] 10.3 mg/dL High 4.0-8.0 [facility] Comment on above: Order Comment: FASTI NG:YES FASTING: YES Result Comment: Ther apeutic target for gout patients: <6.0 mg/dL Performed By: #### 1 0165, 496, 905 #### [facility] [address], [address] [place] [address] Answerer: Juan Meraz MD Provider Letteron 12-17-2020 Provider Letter Deon Brito [address] [place] [address] Re: Anai Goodman Date of Visit: 12/15/2020 Dear Deon Braxton, I am referring Anai to your office for care. Attached your will find my notes and impressions from our visit. Deon Braxton DO Re:Anai Goodman 1955 Date of Visit: 12/15/2020 Dear Deon Braxton DO: I had the pleasure of evaluating patient, Anai Goodman, in the [facility] clinic on 12/15/2020. Attached you will [...] Gutierrez, DO [facility] of [address] [address] Let me know if you have any questions or concerns. Sincerely, Tyesha Dunne Providers: The following document(s) were included in the letter: December 15, 2020 13:30:00 EDT - (12/15/2020) Office Visit Note Normal [facility] Otolaryngology Office/Clinic Noteon 12-15-2020 Otolaryngology Office/Clinic [...] Dr. Freed. Previous pathology by physician in [place] about 1 year ago. PMHx of multiple [...] mL, 1 Refill(s), 12/18/20 14:00:00 EDT, Pharmacy: [facility][id number] Medical Decision Making Chronic conditions NOT treated [...] 5000 intl (more content not included)... Normal [facility] Otolaryngology Office/Clinic Note Chief Complaint BCC [...] Dr. Freed. Previous pathology by physician in [place] about 1 year ago. PMHx of multiple [...] meal to (more content not included)... Normal [facility] XR ANKLE RT MIN 3 VIEWSon XR ANKLE RT MIN 3 VIEWS Normal [facility] XR FOOT RT MIN 3 VIEWSon XR FOOT RT MIN 3 VIEWS Normal [facility] XR FOOT RT MIN 3 VIEWSon XR FOOT RT MIN 3 VIEWS Normal [facility] XR FOOT RT MIN 3 VIEWSon XR FOOT RT MIN 3 VIEWS Normal [facility] Consultation Noteon 05-11-19 Consultation Note [id number]:127 Normal [facility] Vital Signs Date Time Vital Sign Value Performing Clinician Facility 04-12-2023 11:11-0500 Body height 182.9 cm Terry ESCOBEDO Work Phone: [facility] 04-12-2023 11:11-0500 Body mass index (BMI) [Ratio] 28.89 kg/m2 Terry ESCOBEDO Work Phone: [facility] 04-12-2023 11:11-0500 Body weight 96.62 kg Terry ESCOBEDO Work Phone: [facility] 04-12-2023 11:11-0500 Diastolic blood pressure 74 mm[Hg] Terry ESCOBEDO Work Phone: [facility] 04-12-2023 11:11-0500 Heart rate 74 /min Terry ESCOBEDO Work Phone: [facility] 04-12-2023 11:11-0500 SaO2% (BldA) [Mass fraction] 97 % Terry ESCOBEDO Work Phone: [facility] 04-12-2023 11:11-0500 Systolic blood pressure 126 mm[Hg] Terry Lock [employer] Work Phone: [facility] 12-05-2022 13:00-0400 Body height 177.8 cm Ghanshyam Kaye Other [employer] [facility] [employer] Other 12-05-2022 13:00-0400 Diastolic blood pressure 70 mm[Hg] Ghanshyam Kaye Other [facility] [employer] [facility] Other 12-05-2022 13:00-0400 SaO2% (BldA) [Mass fraction] 97 % Ghanshyam Kaye Other [facility] [employer] [facility] Other 12-05-2022 13:00-0400 Systolic blood pressure 110 mm[Hg] Ghanshyam Kaye Other [facility] [employer] [facility] Other 10-05-2022 10:00-0400 Body height 177.8 cm Dung Serna Other [facility] Other 10-05-2022 10:00-0400 Body mass index (BMI) [Ratio] 31.85 kg/m2 Dung Serna Other [facility] [employer] [facility] Other 10-05-2022 10:00-0400 Body weight 100.7 kg Dung Serna Other [facility] Other 10-05-2022 10:00-0400 Diastolic blood pressure 70 mm[Hg] Dung Serna Other [facility] [employer] [facility] Other 10-05-2022 10:00-0400 Systolic blood pressure 118 mm[Hg] Dung Serna Other [facility] [employer] [facility] Other 06-02-2022 11:00-0500 Body height 177.8 cm Reddy Brandt Other [facility] [employer] [facility] Other 06-02-2022 11:00-0500 Body mass index (BMI) [Ratio] 30.13 kg/m2 Reddy Brandt Other [facility] [employer] [facility] Other 06-02-2022 11:00-0500 Body weight 95.26 kg Reddy Brandt Other [facility] [employer] [facility] Other 03-15-2022 13:45-0500 Body height 177.8 cm Reddy Brandt Other [facility] [employer] [facility] Other 03-15-2022 13:45-0500 Body mass index (BMI) [Ratio] 30.85 kg/m2 Reddy Brandt Other [employer] Other 03-15-2022 13:45-0500 Body weight 97.52 kg Reddy Brandt Other [facility] [employer] [facility] Other 02-07-2022 14:00-0500 Body height 177.8 cm Ghanshyam Shermaney Other [facility] Other 02-07-2022 14:00-0500 Body mass index (BMI) [Ratio] 30.85 kg/m2 Ghanshyam Kaye Other [employer] [facility] [employer] [facility] Other 02-07-2022 14:00-0500 Body weight 97.52 kg Ghanshyam Kaye Other [facility] [employer] [facility] Other 02-07-2022 14:00-0500 Diastolic blood pressure 72 mm[Hg] Ghanshyam Kaye Other [employer] Other 02-07-2022 14:00-0500 SaO2% (BldA) [Mass fraction] 98 % Ghanshyam Kaye Other [facility] Other 02-07-2022 14:00-0500 Systolic blood pressure 118 mm[Hg] Ghanshyam Kaye Other [facility] Other 11-29-2021 14:35-0400 Diastolic blood pressure 78 mm[Hg] DO Deon Cordovahas Work Phone: [facility] 11-29-2021 14:35-0400 Heart rate 75 /min DO Deon Cordovahas Work Phone: [facility] 11-29-2021 14:35-0400 Respiratory rate 16 /min DO Deon Cordovahas Work Phone: [facility] 11-29-2021 14:35-0400 SaO2% (BldA) [Mass fraction] 95 % DO Deon Cordovahas Work Phone: [facility] 11-29-2021 14:35-0400 Systolic blood pressure 123 mm[Hg] DO Deon Cordovahas Work Phone: [facility] 11-29-2021 13:39-0400 Inhaled oxygen flow rate 8 L/min DO Deon Cordovahas Work Phone: [facility] 11-29-2021 13:24-0400 Body temperature 98.5 [degF] DO Deon Cordovahas Work Phone: [facility] 11-29-2021 12:10-0400 Body height 182.88 cm DO Deon Cordovahas Work Phone: [facility] 11-29-2021 12:10-0400 Body mass index (BMI) [Ratio] 30.5 kg/m2 DO Deon Tashahas Work Phone: [facility] 11-29-2021 12:10-0400 Body weight 102.05 kg DO Deon Tashahas Work Phone: [facility] 11-03-2021 10:41-0400 Diastolic blood pressure 66 mm[Hg] DO Deon Tashahas Work Phone: [facility] 11-03-2021 10:41-0400 Heart rate 78 /min DO Deon Tashahas Work Phone: [facility] 11-03-2021 10:41-0400 Respiratory rate 16 /min DO Deon Tashahas Work Phone: [facility] 11-03-2021 10:41-0400 SaO2% (BldA) [Mass fraction] 97 % DO Deon Cordovahas Work Phone: [facility] 11-03-2021 10:41-0400 Systolic blood pressure 121 mm[Hg] DO Deon Cordovahas Work Phone: [facility] 11-03-2021 09:41-0400 Body temperature 98 [degF] DO Deon Cordovahas Work Phone: [facility] 11-03-2021 09:11-0400 Inhaled oxygen flow rate 8 L/min DO Deon Cordovahas Work Phone: [facility] 11-03-2021 07:37-0400 Body height 182.88 cm DO Deon Cordovahas Work Phone: [facility] 11-03-2021 07:37-0400 Body mass index (BMI) [Ratio] 30.5 kg/m2 DO Deon Tashahas Work Phone: [facility] 11-03-2021 07:37-0400 Body weight 102.05 kg DO Deon Tashahas Work Phone: [facility] 11-01-2021 18:03-0400 Diastolic blood pressure 69 mm[Hg] DO Deon Yuhas Work Phone: [facility] 11-01-2021 18:03-0400 Heart rate 71 /min DO Deon Tashahas Work Phone: [facility] 11-01-2021 18:03-0400 Respiratory rate 16 /min DO Deon Yuhas Work Phone: [facility] 11-01-2021 18:03-0400 SaO2% (BldA) [Mass fraction] 99 % DO Deon Yuhas Work Phone: [facility] 11-01-2021 18:03-0400 Systolic blood pressure 124 mm[Hg] DO Deon Yuhas Work Phone: [facility] 11-01-2021 16:21-0400 Body height 182.88 cm DO Deon Yuhas Work Phone: [facility] 11-01-2021 16:21-0400 Body temperature 98 [degF] DO Deon Yuhas Work Phone: [facility] 11-01-2021 16:21-0400 Body weight 102.05 kg DO Deon Yuhas Work Phone: [facility] 10-31-2021 10:30-0400 Body height 177.8 cm Reddy Brandt Other [facility] Other 10-27-2021 05:00-0400 Body temperature 98.6 [degF] DO Deon Tashahas Work Phone: [facility] 10-27-2021 05:00-0400 Diastolic blood pressure 72 mm[Hg] DO Deon Yuhas Work Phone: [facility] 10-27-2021 05:00-0400 Heart rate 70 /min DO Deon Yuhas Work Phone: [facility] 10-27-2021 05:00-0400 Respiratory rate 16 /min DO Deon Yuhas Work Phone: [facility] 10-27-2021 05:00-0400 SaO2% (BldA) [Mass fraction] 98 % DO Deon Yuhas Work Phone: [facility] 10-27-2021 05:00-0400 Systolic blood pressure 132 mm[Hg] DO Deon Cordovahas Work Phone: [facility] 10-24-2021 12:00-0400 Body height 182.88 cm DO Deon Cordovahas Work Phone: [facility] 10-23-2021 05:26-0400 Body weight 70.9 kg DO Deon Cordovahas Work Phone: [facility] 10-22-2021 04:14-0400 Inhaled oxygen concentration 21 % DO Deon Cordovahas Work Phone: [facility] 10-21-2021 12:00-0400 Body temperature 98.1 [degF] DO Deon Cordovahas Work Phone: [facility] 10-21-2021 12:00-0400 Diastolic blood pressure 73 mm[Hg] DO Deon Cordovahas Work Phone: [facility] 10-21-2021 12:00-0400 Heart rate 76 /min DO Deon Ramoss Work Phone: [facility] 10-21-2021 12:00-0400 Respiratory rate 18 /min DO Deon Ramoss Work Phone: [facility] 10-21-2021 12:00-0400 SaO2% (BldA) [Mass fraction] 95 % DO Deon Cordovahas Work Phone: [facility] 10-21-2021 12:00-0400 Systolic blood pressure 128 mm[Hg] DO Deon Cordovahas Work Phone: [facility] 10-21-2021 06:00-0400 Body weight 99.9 kg DO Deon Tashahas Work Phone: [facility] 10-21-2021 02:05-0400 Inhaled oxygen concentration 21 % DO Deon Tashahas Work Phone: [facility] 10-19-2021 11:00-0400 Body height 182.88 cm DO Deon Braxton Work Phone: [facility] 10-18-2021 15:37-0400 Inhaled oxygen flow rate 6 L/min DO Deon Braxton Work Phone: [facility] 10-18-2021 13:19-0400 Body mass index (BMI) [Ratio] 29.8 kg/m2 DO Deon Braxton Work Phone: [facility] 10-12-2021 10:00-0400 Body height 177.8 cm Reddy Karly Other [facility] [employer] [facility] Other 10-12-2021 10:00-0400 Body mass index (BMI) [Ratio] 32.28 kg/m2 Reddy Karly Other [facility] [employer] [facility] Other 10-12-2021 10:00-0400 Body weight 102.06 kg Reddy Karly Other [facility] [employer] [facility] Other 10-06-2021 14:15-0400 Body height 177.8 cm Pako Aguilar Other [facility] [employer] [facility] Other 10-06-2021 14:15-0400 Body mass index (BMI) [Ratio] 32.28 kg/m2 Pako Aguilar Other [facility] [employer] [facility] Other 10-06-2021 14:15-0400 Body temperature 97.3 [degF] Pako Aguilar Other [employer] [facility] Other 10-06-2021 14:15-0400 Body weight 102.06 kg Pako Aguilar Other [facility] [employer] [facility] Other 10-06-2021 14:15-0400 Diastolic blood pressure 73 mm[Hg] Pako Aguilar Other [facility] [employer] [facility] Other 10-06-2021 14:15-0400 Systolic blood pressure 127 mm[Hg] Pako Aguilar Other [employer] Other 09-08-2021 15:30-0400 Body height 177.8 cm Pako Aguilar Other [employer] [facility] Other 09-08-2021 15:30-0400 Body temperature 98.1 [degF] Pako Aguilar Other [facility] [employer] [facility] Other 09-08-2021 15:30-0400 Diastolic blood pressure 73 mm[Hg] Pako Leon Other [employer] Other 09-08-2021 15:30-0400 Systolic blood pressure 149 mm[Hg] Pako Leon Other [employer] Other Encounters Encounter Date Encounter Type Care Provider Facility Start: 10-01-2023 End: 10-01-2023 ambulatory [facility] Start: 09-18-2023 End: 09-18-2023 ambulatory [facility] Start: 09-13-2023 End: 09-13-2023 ambulatory [facility] Start: 09-06-2023 End: 09-06-2023 ambulatory [facility] Start: 08-02-2023 End: 08-03-2023 ambulatory [facility] Start: 08-02-2023 End: 08-02-2023 ambulatory [facility] Start: 08-01-2023 End: 08-01-2023 ambulatory ZOEY CORNELIUS Not Available Start: 07-11-2023 End: 07-11-2023 ambulatory DEBI DICKSON Not Available Start: 07-03-2023 End: 07-03-2023 ambulatory DEBI DICKSON Not Available Start: 06-27-2023 End: 06-27-2023 ambulatory ZOEY CORNELIUS Not Available Start: 06-01-2023 Refill Deon Grace Walker O Work Phone: [facility] Comment on above: Sarcoidosis with gra nulomatous hepatitis Start: 06-01-2023 Refill Deon Grace Walker O Work Phone: [facility] Comment on above: 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, with long-term current use of insulin ([facility]) Start: 05-12-2023 Refill Deon Grace Walker O Work Phone: [facility] Comment on above: Pure hypercholestero lemia Med Refill Start: 04-19-2023 End: 04-19-2023 ambulatory Salina Walker [facility] Facility:[facility] Start: 04-19-2023 End: 04-19-2023 ambulatory DO Deon Ramoss Work Phone: [facility] Work Phone: Start: 04-19-2023 End: 04-19-2023 Departed Referred DO Deon Ramoss Work Phone: [facility] Start: 04-13-2023 Refill [facility] Comment on above: 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, with long-term current use of insulin ([facility]) Start: 04-12-2023 End: 04-12-2023 ambulatory TERRY LOCK [facility] Start: 04-12-2023 Encounter for prepro cedural cardiovascular examination TERRY LOCK [facility] Start: 04-12-2023 End: 04-12-2023 Office outpatient visit 25 minutes Terry Lock [employer] Work Phone: [facility] Comment on above: Preop cardiovascular exam (Primary Dx); Coronary artery disease involving [place] coronary artery of [place] heart without angina pectoris; Ischemic cardiomyopathy; Chronic systolic congestive heart failure (CMS-HCC); Apical mural thrombus; Essential (primary) hypertension; Cardiac defibrillator in place- [employer]; Mixed hyperlipidemia Start: 04-12-2023 End: 04-12-2023 Patient encounter status Terry Lock CONTINU[employer] 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[employer]PING ASSOCIATE Work Phone: [facility] Work Phone: Start: 04-05-2023 End: 04-05-2023 ambulatory YOVANNY CALHOUN [facility] Start: 04-03-2023 End: 04-03-2023 ambulatory Dung Serna Other [employer] Other Start: 04-03-2023 Telephone encounter Dung Serna [facility] Start: 03-22-2023 End: 03-23-2023 ambulatory [facility] Start: 03-22-2023 End: 03-22-2023 ambulatory YOVANNY CALHOUN Not Available Start: 03-22-2023 End: 03-22-2023 ambulatory YOVANNY CALHOUN Not Available Start: 03-22-2023 End: 03-22-2023 ambulatory [facility] Start: 03-07-2023 End: 03-07-2023 ambulatory ZOEYERIC KIMBLEILL Not Available Start: 01-11-2023 End: 01-11-2023 ambulatory Ghanshyam Kaye Other [employer] Other Start: 01-11-2023 Telephone encounter Ghanshyam Kaye [facility] Start: 12-05-2022 End: 12-05-2022 ambulatory Ghanshyam Kaye Other [employer] Other Start: 12-05-2022 Office outpatient vi sit 15 minutes Ghanshyam Kaye [facility] Start: 10-05-2022 Office outpatient ne w 30 minutes Dung Serna [facility] Start: 10-05-2022 End: 10-05-2022 ambulatory [facility] [employer] Other Start: 08-02-2022 End: 08-02-2022 ambulatory Reddy Brandt Other [employer] Other Start: 08-02-2022 Office outpatient vi sit 15 minutes Reddy Brandt [facility] Start: 06-02-2022 End: 06-02-2022 ambulatory Reddy Brandt Other [employer] Other Start: 06-02-2022 Postop follow up vis it related to original px Reddy Brandt [facility] Start: 05-12-2022 End: 05-12-2022 ambulatory Reddy Brandt Other [employer] Other Start: 05-12-2022 Telephone encounter Reddy MOE G [facility] Start: 05-03-2022 End: 05-03-2022 ambulatory DO Deon Braxton Work Phone: [facility] Work Phone: Start: 05-03-2022 End: 05-03-2022 Patient encounter procedure DO Deon Braxton Work Phone: [facility]-Structures Technician [address] Start: 04-28-2022 End: 04-28-2022 ambulatory Reddy Brandt Other [employer] Other Start: 04-28-2022 Office outpatient vi sit 15 minutes Reddy Brandt [facility] Start: 04-17-2022 End: 04-17-2022 ambulatory Reddy Brandt Other [employer] Other Start: 04-17-2022 Telephone encounter Reddy MOE [facility] Start: 04-12-2022 End: 04-12-2022 ambulatory Reddy Brandt Other [employer] Other Start: 04-12-2022 Postop follow up vis it related to original px Reddy Karly [facility] Start: 03-15-2022 End: 03-15-2022 ambulatory Reddy Karly Other [employer] Other Start: 03-15-2022 Office outpatient vi sit 15 minutes Reddy Meehanley [facility] Start: 02-07-2022 End: 02-07-2022 ambulatory Ghanshyam Kaye Other [employer] Other Start: 02-07-2022 Office outpatient vi sit 15 minutes Ghanshyam Shermaney [facility] Start: 02-03-2022 End: 02-03-2022 ambulatory Reddy Karly Other [employer] Other Start: 02-03-2022 Postop follow up vis it related to original px Reddy Brandt [facility] Start: 01-24-2022 End: 01-24-2022 ambulatory Reddy Brandt Other [employer] Other Start: 01-24-2022 Telephone encounter Reddy MOE [facility] Start: 01-20-2022 End: 01-20-2022 ambulatory Reddy Brandt Other [employer] Other Start: 01-20-2022 Postop follow up vis it related to original px Reddy Karly [facility] Start: 01-16-2022 End: 01-16-2022 ambulatory Reddy Brandt Other [employer] Other Start: 01-16-2022 Telephone encounter Reddy MOE G [facility] Physician Assistant Start: 01-06-2022 End: 01-06-2022 ambulatory Reddy Brandt Other [employer] Other Start: 01-06-2022 Postop follow up vis it related to original px Reddy Brandt [facility] Start: 12-23-2021 End: 12-23-2021 ambulatory Reddy Karly Other [employer] Other Start: 12-23-2021 Postop follow up vis it related to original px Reddy Brandt [facility] Start: 12-20-2021 End: 12-20-2021 Discharged Recurring DO Deon Braxton Work Phone: [facility]-Infusion Therapy - O/P Start: 12-14-2021 End: 12-14-2021 ambulatory Reddy Brandt Other [employer] Other Start: 12-14-2021 Postop follow up vis it related to original px Reddy Brandt [facility] Start: 12-12-2021 End: 12-12-2021 ambulatory Reddy Brandt Other [employer] Other Start: 12-12-2021 Telephone encounter Reddy Karly [facility] Start: 12-09-2021 End: 12-09-2021 ambulatory Reddy Karly Other [employer] Other Start: 12-09-2021 Postop follow up vis it related to original px Reddy Meehanley [facility] Start: 11-29-2021 End: 11-29-2021 Evaluation and management of inpatient DO Deon Braxton Work Phone: [facility]-[address] [place] [address] Surgical Start: 11-29-2021 End: 11-29-2021 Admission to same day surgery center DO Deon Braxton Work Phone: [facility]-Surgery [facility] Start: 11-28-2021 End: 11-28-2021 ambulatory Reddy Karly Other [employer] Other Start: 11-28-2021 Postop follow up vis it related to original px Reddy Karly [facility] Start: 11-21-2021 End: 11-21-2021 ambulatory Reddy Brandt Other [employer] Other Start: 11-21-2021 Telephone encounter Reddy MOE G [facility] Start: 11-03-2021 End: 11-03-2021 Admission to same day surgery center DO Deon Ramosanival Work Phone: [facility]-Surgery [facility] [place] Start: 11-02-2021 End: 11-02-2021 ambulatory Reddy Brandt Other [employer] Other Start: 11-02-2021 Postop follow up vis it related to original px Reddybryan Brandt [facility] Start: 11-02-2021 End: 11-02-2021 Patient encounter procedure DO Deon Braxton Work Phone: [facility]-Pre-Surgical Testing Start: 11-01-2021 End: 11-01-2021 Emergency department patient visit DO Deon Braxton Work Phone: [facility]-Emergency Room Start: 11-01-2021 End: 11-01-2021 ambulatory Reddy Brandt Other [employer] Other Start: 11-01-2021 Telephone encounter Reddy MOE [facility] Start: 10-31-2021 End: 10-31-2021 ambulatory Reddy Brandt Other [employer] Other Start: 10-31-2021 Postop follow up vis it related to original px Reddybryan Brandt [facility] Start: 10-21-2021 End: 10-27-2021 Evaluation and management of inpatient DO Deon Braxton Work Phone: [facility] Start: 10-18-2021 End: 10-21-2021 Evaluation and management of inpatient DO Deon Braxton Work Phone: [facility] Start: 10-14-2021 End: 10-14-2021 Patient encounter procedure DO Deon Braxton Work Phone: [facility]-Pre-Surgical Testing Start: 10-12-2021 End: 10-12-2021 ambulatory Reddy Brandt Other [facility] Other Start: 10-12-2021 Office outpatient vi sit 25 minutes Reddy ROSENBERG [facility] Start: 10-10-2021 End: 10-10-2021 Patient encounter procedure DO Deon Braxton Work Phone: [facility]-MRI [facility] Start: 10-06-2021 End: 10-06-2021 Patient encounter procedure DO Deon Braxton Work Phone: [facility]-Lab [facility] Start: 10-06-2021 End: 10-06-2021 ambulatory Reddy Brandt Other [facility] Other Start: 10-06-2021 Office outpatient vi sit 25 minutes Pako ROSENBERG Infectious Disease Start: 10-06-2021 Telephone encounter [facility] Start: 09-29-2021 End: 09-29-2021 Patient encounter procedure DO Deon Braxton Work Phone: [facility]-Pacemaker Check Start: 09-26-2021 End: 09-26-2021 ambulatory Reddy Brandt Other [employer] Other Start: 09-26-2021 Telephone encounter Reddy Gil [facility] Start: 09-21-2021 End: 09-21-2021 Patient encounter procedure DO Deon Braxton Work Phone: [facility]-XRay [facility] Start: 09-21-2021 ambulatory SALINA LEE Faci lity:H1 Start: 09-09-2021 End: 09-10-[address] DEON BRAXTON Facility:[facility]1 Start: 09-09-2021 End: 09-10-2021 ambulatory SALINA Aaron CHAYOARIS Facility:[facility]1 Start: 09-08-2021 End: 09-08-2021 ambulatory Pako Aguilar Other [facility] Other Start: 09-08-2021 Office outpatient vi sit [...] SALINA LEE Facility:[facility]1 Start: 02-28-2021 ambulatory DEON edmonds:[facility] Start: 02-23-2021 End: 02-24-2021 ambulatory SALINA LEE Facility:[facility]1 Start: 02-22-2021 ambulatory DEON BRAXTON Faci lity:[facility] Start: 02-17-2021 End: 02-18-2021 ambulatory SALINA LEE Facility:[facility]1 Start: 02-09-2021 Encounter for prepro cedural laboratory examination SALINA LEE [facility] Start: 02-08-2021 End: 02-12-2021 Evaluation and management [...] Start: 01-11-2021 End: 01-11-2021 ambulatory DEON BRAXTON Facility:[facility] Start: 01-10-2021 End: 01-11-2021 ambulatory DEON BRAXTON Facility:[facility] Start: 12-08-2020 End: 12-09-[address] DEON BRAXTON Facility:[facility]1 Start: 12-03-2020 End: 12-04-[address] DEON BRAXTON Facility:[facility] Start: 11-29-2020 End: 11-30-2020 ambulatory SALINA LEE Facility:[facility] Start: 11-25-2020 End: 11-26-2020 ambulatory SALINA LEE Facility:[facility] Start: 11-22-2020 End: 11-23-2020 ambulatory DELONG Ora NAJERALIZA Facility:[facility]1 Start: 11-18-2020 End: 11-19-2020 ambulatory BALJEET NAJERALIZA Facility:[facility]1 Start: 11-11-2020 End: 11-12-2020 ambulatory DELONG Ora NAJERALIZA Facility:[facility]1 Start: 11-04-2020 End: 11-05-2020 ambulatory SALINA LEE Facility:[facility]1 Procedures Date Procedure Procedure Detail Performing Clinician Start: 09-18-2023 Follow-up visit Follow-up NOEL JONES Start: 05-24-2023 Diabetic retinal eye exam Deon Braxton DO Work Phone: Start: 04-12-2023 Ecg routine ecg w/le ast 12 lds w/i&r Terry Leo [employer] Work Phone: Start: 03-22-2023 Adult depression scr eening assessment Terry Lock [employer] Work Phone: Start: 12-29-2022 Diabetic retinal eye exam Terry Leo [employer] Work Phone: Start: 10-26-2022 Microalbumin [Mass/v olume] in Urine by Test strip Terry Leo [employer] Work Phone: Start: 11-29-2021 Incision and drainag [...] Othe r Anti-infective into Joints, Open Approach BALJEET LEONG Start: 02-11-2021 Removal of Spacer fr om Right Ankle Joint, Percutaneous Approach BALJEET LEONG Start: 02-08-2021 Excision of Right Fi bula, Open Approach BALJEET LEONG Start: 02-08-2021 Introduction of Othe r Anti-infective into Joints, Open Approach DELONGFIONA LEONG Start: 02-08-2021 Removal of Internal Fixation Device from Right Ankle Joint, Open Approach DELONGFIONA LEONG Aerobic microbial culture DO Deon Braxton Work Phone: Anaerobic microbial culture DO Deon Braxton Work Phone: History of amputatio n of foot Pako Aguilar Other Investigation of transfusion reaction DO Deon [facility] [employer] Phone: SARS-CoV-2, Influenz a & RSV (PCR) DO Deon [employer] Work Phone: Plan of Treatment Date Care Activity Detail Author Start: 01-13-2026 DTaP,Tdap and Td Vaccines (2 - Td or Tdap) DTaP,Tdap and Td Vaccines (2 - Td or Tdap) [facility] Start: 05-24-2024 Glaucoma screening Diabetic Ophthalmology Exam [facility] Start: 04-12-2024 Adult BMI Screening Adult BMI Screening [facility] [employer] Start: 04-12-2024 Tobacco Screening Tobacco Screening [facility] [employer] Start: 03-22-2024 Depression Screening Depression Screening [facility] Start: 03-22-2024 Fall Risk Screening Fall Risk Screening [facility] Start: 12-30-2023 Glaucoma screening Diabetic [facility]hthalmology Exam [facility] Start: 11-29-2023 End: 11-29-2023 Patient encounter procedure 11/29/2023 9:00 AM EDT Office Visit [facility] - Family Medicine [address] [place] [address] [facility] Start: 11-24-2023 Medicare Annual Wellness Visit Medicare Annual Wellness Visit [facility] Start: 10-27-2023 Diabetic foot examination Diabetic Foot Exam [facility] Start: 10-27-2023 Urine screening for protein Urine Microalbumin [facility] Start: 11-29-2021 [facility] Start: 11-29-2021 [facility] Start: 11-29-2021 Incision and drainage of lower extremity OR I&D Exploration Upper/Lower Extremity (Right) [facility] Start: 11-29-2021 End: 11-29-2021 Admission to same day surgery center Below knee amputation [facility] Start: 11-03-2021 [facility] Start: 11-03-2021 [facility] Start: 11-03-2021 Amputation of right lower limb OR Leg Amputation Above/Below (Right) [facility] Start: 11-03-2021 End: 11-03-2021 Admission to same day surgery center Departed Surgical Day Care [facility] [place] Start: 11-02-2021 End: 11-02-2021 Patient encounter procedure Departed Clinical [facility]-Pre-Surgical Testing Start: 11-01-2021 End: 11-01-2021 Emergency department patient visit Departed Emergency [facility]Emergency Room Start: 10-27-2021 [facility] Work Phone: Start: 10-21-2021 Hospital admission [facility] Work Phone: Start: 10-21-2021 Referral to clinical pets salesperson [facility] Work Phone: Start: 10-21-2021 [facility] Work Phone: Start: 10-18-2021 Referral to clinical pets salesperson [facility] Work Phone: Start: 10-18-2021 Detachment at Right Lower Leg, Mid, Open Approach Detachment at Right Lower Leg, Mid, Open Approach [facility] Start: 10-17-2021 [facility] Work Phone: Start: 10-14-1975 Adult BMI Follow Up Plan Adult BMI Follow Up Plan [facility] Patient Education [facility] Work Phone: Patient referral [facility] Work Phone: SARS-CoV-2 (COVID-19 ) N gene [Presence] in Respiratory specimen by MEREDITH with probe detection [facility] Work Phone: Immunizations Immunization Date Immunization Notes Care Provider Fa cili 03-12-2023 Covid-19,mrna, Lnp-s , Pf, 50mcg/0.5ml 12+ Terry Lock [employer] WR[employer] Work Phone: [facility] 03-12-2023 Influenza Vaccine, Quadrivalent, Adjuvanted Terry Lock CONTINUITY WRITER[employer]SHIPPING ASSOCIATE Work Phone: [facility] 03-12-2023 RSV, mAb, nirsevimab-alip, 1 mL, to 24 months Terry Lock CONTINUITY WRITER[employer]SHIPPING ASSOCIATE Work Phone: [facility] 03-12-2023 RSV, recombinant, protein subunit RSVpreF, adjuvant reconstituted, 0.5 mL, PF Terry Lock CONTINUITY WRITER-SHIPPING ASSOCIATE Work Phone: [facility] 06-14-2022 zoster vaccine recombinant Terry Lock CONTINUITY WRITER[employer]SHIPPING ASSOCIATE Work Phone: [facility] 04-15-2022 Covid-19, Mrna, Lnp- s, Bivalent, Pf, 50mcg/0.5ml or 25mcg/0.25ml Terry Lock CONTINUITY WRITER-SHIPPING ASSOCIATE Work Phone: [facility] 04-15-2022 zoster vaccine recombinant Terry Lock CONTINUITY WRITER-SHIPPING ASSOCIATE Work Phone: [facility] 04-11-2022 Influenza, High-dose , Quadrivalent Terry Lock CONTINUITY WRITER-SHIPPING ASSOCIATE Work Phone: [facility] 03-01-2021 COVID-19 mRNA-1273 (Moderna) DO Deon Braxton Work Phone: [facility] 03-01-2021 Seasonal, quadrivale nt, recombinant, injectable influenza vaccine, preservative free Terry Lock CONTINUITY WRITER-SHIPPING ASSOCIATE Work Phone: [facility] 06-25-2020 COVID-19 mRNA-1273 (Moderna) DO Deon Braxton Work Phone: [facility] 05-28-2020 COVID-19, mRNA, LNP- S, PF, 100mcg/0.5mL Dose Terry Leo CONTINUITY WRITER[employer]SHIPPING ASSOCIATE Work Phone: [facility] 05-25-2020 COVID-19, mRNA, LNP- S, PF, 100mcg/0.5mL Dose Terry Leo CONTINUITY WRITER-SHIPPING ASSOCIATE Work Phone: [facility] 01-14-2020 influenza, seasonal, injectable Terry Lock CONTINUITY WRITER-SHIPPING ASSOCIATE Work Phone: [facility] 12-30-2019 influenza, injectabl e, quadrivalent, preservative free Terry Lock CONTINUITY WRITER-SHIPPING ASSOCIATE Work Phone: [facility] 04-07-2019 Influenza, injectabl e, Madin Yumiko Canine Kidney, preservative free, quadrivalent Terry Lock CONTINUITY WRITER-SHIPPING ASSOCIATE Work Phone: [facility] 12-31-2018 pneumococcal conjuga te vaccine, 13 valent Terry Lock CONTINUITY WRITER-SHIPPING ASSOCIATE Work Phone: [facility] 01-23-2018 influenza, injectabl e, quadrivalent, contains preservative Terry Lock CONTINUITY WRITER-SHIPPING ASSOCIATE Work Phone: [facility] 01-23-2018 influenza, injectabl e, quadrivalent, preservative free Terry Lock CONTINUITY WRITER-SHIPPING ASSOCIATE Work Phone: [facility] 02-05-2017 influenza, injectabl e, quadrivalent, preservative free Terry Lock CONTINUITY WRITER-SHIPPING ASSOCIATE Work Phone: [facility] 02-05-2017 pneumococcal conjuga te vaccine, 13 valent Terry Lock CONTINUITY WRITER-SHIPPING ASSOCIATE Work Phone: [facility] 01-14-2017 influenza, injectabl e, quadrivalent, contains preservative Terry Lock CONTINUITY WRITER-SHIPPING ASSOCIATE Work Phone: [facility] 01-14-2016 tetanus toxoid, redu joseph diphtheria toxoid, and acellular pertussis vaccine, adsorbed Terry Lock CONTINUITY WRITER-SHIPPING ASSOCIATE Work Phone: [facility] 01-02-2016 influenza virus vacc ine, unspecified formulation Terry Lock CONTINUITY WRITER-SHIPPING ASSOCIATE Work Phone: [facility] 08-13-2015 zoster vaccine, live Terry Lock CONTINUITY WRITER-SHIPPING ASSOCIATE Work Phone: [facility] 12-22-2014 influenza, seasonal, injectable, preservative free Terry Lock CONTINUITY WRITER-SHIPPING ASSOCIATE Work Phone: [facility] 01-26-2014 pneumococcal conjuga te vaccine, 13 valent Terry Lock CONTINUITY WRITER-SHIPPING ASSOCIATE Work Phone: [facility] 01-12-2014 influenza, seasonal, injectable Terry Lock CONTINUITY WRITER-SHIPPING ASSOCIATE Work Phone: [facility] 01-12-2014 Seasonal trivalent influenza vaccine, adjuvanted, preservative free Terry Lock CONTINUITY WRITER-SHIPPING ASSOCIATE Work Phone: [facility] 09-17-2012 pneumococcal polysaccharide vaccine, 23 valent Terry Lock CONTINUITY WRITER-SHIPPING ASSOCIATE Work Phone: [facility] 09-17-2012 pneumococcal vaccine , unspecified formulation Terry Lock CONTINUITY WRITER-SHIPPING ASSOCIATE Work Phone: [facility] Payers Date Payer Category Payer Medicare [employer] MEDICARE [facility] MEDICARE ADVANTAGE [id number] 2023-[facility] [phone] [address] [place] [address] [id number] 2023 Medicare [id number] 2022 Self-pay [id number] 2022 Medicare [id number] 2021 Unknown 1957 Unknown [id number] 2.16.840.1.398578.3.579.2.196 1957 Unknown [id number] 2.16.840.1.218651.3.579.2.196 1957 Unknown [id number] 2.16.840.1.402027.3.579.2.196 1957 Unknown [id number] 2.16.840.1.933612.3.579.2.196 1957 Unknown [id number] 2.16.840.1.371032.3.579.2.593 1957 Unknown [id number] 2.16.840.1.936394.3.579.2.593 1957 Unknown [id number] 2.16.840.1.888601.3.579.2.593 1957 Unknown [id number] 2.16.840.1.775577.3.579.2.593 1957 Unknown [id number] 2.16.840.1.857856.3.579.2.593 1957 Unknown [id number] 2.16.840.1.791426.3.579.2.593 1957 Unknown [id number] 2.16.840.1.750070.3.579.2.593 1957 Unknown [id number] 2.16.840.1.834419.3.579.2.593 1957 Unknown [id number] 2.16.840.1.567405.3.579.2.593 1957 Unknown [id number] 2.16.840.1.117920.3.579.2.593 1957 Unknown [id number] 2.16.840.1.788127.3.579.2.593 1957 Unknown [id number] 2.16.840.1.954642.3.579.2.593 1957 Unknown [id number] 2.16.840.1.128431.3.579.2.593 1957 Unknown [id number] 2.16.840.1.538186.3.579.2.593 1957 Unknown [id number] 2.16.840.1.378299.3.579.2.593 1957 Unknown [id number] 2.16.840.1.249971.3.579.2.59 1957 Unknown [id number] 2.16.840.1.834498.3.579.2.593 1957 Unknown [id number] 2.16.840.1.048397.3.579.2. 1957 Unknown [id number] 2.16.840.1.413611.3.579.2.593 1957 Unknown [id number] 2.16.840.1.841873.3.579.2.3 1957 Unknown [id number] 2.16.840.1.733475.3.579.2.593 1957 Unknown [id number] 2.16.840.1.420884.3.579.2.59 1957 Unknown [id number] 2.16.840.1.650349.3.579.2.593 1957 Unknown [id number] 2.16.840.1.755199.3.579.2.593 1957 Unknown [id number] 2.16.840.1.903775.3.579.2.593 1957 Unknown [id number] 2.16.840.1.532635.3.579.2.593 1957 Unknown [id number] 2.16.840.1.728829.3.579.2.593 1957 Unknown [id number] 2.16.840.1.331024.3.579.2.593 1957 Unknown [id number] 2.16.840.1.940404.3.579.2.593 1957 Unknown [id number] 2.16.840.1.777736.3.579.2.593 1957 Unknown [id number] 2.16.840.1.283755.3.579.2.59 1957 Unknown [id number] 2.16.840.1.484160.3.579.2.593 1957 Unknown [id number] 2.16.840.1.330476.3.579.2. 1957 Unknown [id number] 2.16.840.1.730977.3.579.2.593 1957 Unknown [id number] 2.16.840.1.705986.3.579.2.593 1957 Unknown [id number] 2.16.840.1.382526.3.579.2.593 1957 Unknown [id number] 2.16.840.1.369713.3.579.2.593 1957 Unknown [id number] 2.16.840.1.674812.3.579.2.593 1957 Unknown [id number] 2.16.840.1.327642.3.579.2.593 1957 Unknown [id number] 2.16.840.1.169466.3.579.2.593 1957 Unknown [id number] 2.16.840.1.735648.3.579.2.59 1957 Unknown [id number] 2.16.840.1.823586.3.579.2.593 1957 Unknown [id number] 2.16.840.1.233279.3.579.2.593 1957 Unknown [id number] 2.16.840.1.398276.3.579.2.593 1957 Unknown [id number] 2.16.840.1.047801.3.579.2.59 1957 Unknown [id number] 2.16.840.1.300416.3.579.2.59 1957 Unknown [id number] 2.16.840.1.516220.3.579.2.59 1957 Unknown [id number] 2.16.840.1.605285.3.579.2.59 1957 Unknown [id number] 2.16.840.1.969232.3.579.2.59 1957 Unknown [id number] 2.16.840.1.605000.3.579.2.59 1957 Unknown [id number] 2.16.840.1.797250.3.579.2.593 1957 Unknown [id number] 2.16.840.1.335076.3.579.2.59 1957 Unknown [id number] 2.16.840.1.551329.3.579.2.593 1957 Unknown [id number] 2.16.840.1.115931.3.579.2.593 1957 Unknown [id number] 2.16.840.1.999132.3.579.2.59 1957 Unknown [id number] 2.16.840.1.371208.3.579.2.59 1957 Unknown [id number] 2.16.840.1.901065.3.579.2.593 1957 Unknown [id number] 2.16.840.1.822114.3.579.2.593 1957 Unknown [id number] 2.16.840.1.800923.3.579.2.128 1957 Unknown [id number] 2.16.840.1.096957.3.579.2.125 1957 Unknown [id number] 2.16.840.1.011897.3.579.2.1258 1957 Unknown [id number] 2.16.840.1.889323.3.579.2.1258 1957 Unknown [id number] 2.16.840.1.724874.3.579.2.1258 1957 Unknown [id number] 2.16.840.1.741200.3.579.2.1258 1957 Unknown [id number] 2.16.840.1.153168.3.579.2.1258 1957 Unknown [id number] 2.16.840.1.872914.3.579.2.1258 1957 Unknown [id number] 2.16.840.1.650158.3.579.2.1285 1957 Unknown [id number] 2.16.840.1.735873.3.579.2.1285 1957 Unknown [id number] 2.16.840.1.996833.3.579.2.1285 1957 Unknown [id number] 2.16.840.1.524248.3.579.2.1285 1957 Unknown [id number] 2.16.840.1.562557.3.579.2.1285 1957 Unknown [id number] 2.16.840.1.835088.3.579.2.1286 1957 Unknown [id number] 2.16.840.1.921596.3.579.2.1286 1957 Unknown [id number] 2.16.840.1.647039.3.579.2.1286 1957 Unknown [id number] 2.16.840.1.803151.3.579.2.1286 Medicare [id number] 2.16840.1.310302.19 Unknown O [id number] Unknown [id number] Unknown [id number] 2.16.840.1.611146.3.579.2.531 Unknown [id number] 2..840.1.935937.3.579.2.531 Social History Date Type Detail Facility Unknown if ever smoked [employer] Other Start: 04-11-2022 End: 04-12-2023 Sex Assigned At [facility] Start: 10-19-2021 End: 01-18-2022 Tobacco smoking status NHIS Never smoked tobacco (finding) [facility] Start: 1955 Sex Assigned At Male [facility] Start: 01-18-2022 Tobacco use and exposure Smokeless tobacco non-user [facility] Start: 04-12-2023 Alcohol intake Current drinker of alcohol (finding) [facility] Start: 04-11-2022 End: 04-12-2023 History of Social function [facility] Do you belong to any clubs or organizations such as hindu groups, unions, fraternal or athletic groups, or school groups? No [facility] Are you now , , , , never or living with a partner? [facility] How often to you hav e a drink containing alcohol? 2-4 times a month [facility] How many standard dr inks containing alcohol do you have on a typical day? 1 or 2 [facility] How often do you hav e 6 or more drinks on 1 occasion? Never [facility] How hard is it for y ou to pay for the very basics like food, housing, medical care, and heating [facility] hard [facility] Adolescent depressio n screening assessment 0 [facility] Do you feel stress - tense, restless, nervous, or anxious, or unable to sleep at night because your mind is troubled all the time - these days [OSQ] Not at all [facility] Start: 04-11-2022 Education 21 enymotion Sys tem Start: 09-10-2019 Alcohol Comment social [facility] Start: 1955 Sex Assigned At Not on file enymotion S ystem Medical Equipment Procedure Code Equipment Code Equipment Origin al Text Equipment Identifier Dates Gft Hmn Tiss 250 mg Amniofill - [id number] - [id number] Start: 12-27-2018 Gft Sft Tis Matr istem - [id number] - [id number] Start: 01-27-2019 Tiss Grafix Prim e 3x4cm - [id number] - [id number] Start: 09-15-2019 Evera Mri Xt Vr Defibrillator [id number] Start: 07-13-2015 Sprint Quattro S ecure Mri [id number] Start: 07-13-2015 Tissue Epifix 2x 4 Cm - [id number] - [id number] Start: 12-27-2018 USE DIRECTED FOUR TIMES DAILY [id number] Start: 08-07-2022 Goals Date Patient Goal Desired Activity /State Personal health goal Comment on above: Formatting of this n ote might be different from the original. Evaluation of progress towards goal: Safe dc transition from hospital to home with family support. Resume with [facility]. Personal health goal Comment on above: Formatting of this n ote might be different from the original. Evaluation of progress towards goal: Pt plans to discharge home with [facility]. Functional Status Date Assessment Result Facility 10-27-2021 Functional status Patient is Pro gressing Toward Baseline [facility] Work Phone: 10-21-2021 Functional status Patient is Pro gressing Toward Baseline [facility] Work Phone: 10-18-2021 Functional status Patient at Baseline [facility] Work Phone: Mental Status Date Assessment Result Facility 10-27-2021 Cognitive function Cognitive Sta tus Patient at Baseline [facility] Work Phone: 10-21-2021 Cognitive function Cognitive Sta tus Patient is Progressing Toward Baseline [facility] Work Phone: 10-18-2021 Cognitive function Cognitive Sta tus Patient at Baseline [facility] Work Phone: Clinical Notes 01-05-2021 to 04-12-2023 Terry Lock, CONTINUITY WRITER-[facility] - 04/12/2023 11:30 AM Sue High [...] arthropathy, with long-term current use of insulin ([facility]) Chronic systolic congestive heart failure ([facility]) Coronary artery disease involving [place] coronary artery of [place] heart without angina pectoris Hearing loss Personal history of colonic polyps Colon polyps Diverticulosis large intestine w/o perforation or abscess w/o bleeding Chronic obstructive pulmonary disease ([facility]) 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 Gastroesophageal reflux disease with esophagitis without hemorrhage Stage 3b chronic kidney disease ([facility]) Subepithelial esophageal mass Sarcoidosis Diabetic retinopathy ([facility]) Obstructive sleep apnea syndrome Diabetic neuropathy ([facility]) Bilateral sensorineural hearing loss Unilateral complete AKA, right ([facility]) Allergies Allergen Reactions Doxycycline Other reaction(s): Chest Pain Levofloxacin Other reaction(s): Chest Pain Chlorpheniramine Dextromethorphan Hbr Itching Exlrjqkdg-Qh-Cuynaljvymqcb Guaifenesin Other reaction(s): Itching of skin Hydrocodone [...] morning. 90 tablet 1 flash glucose sensor (Shopography LELO 2 SENSOR) kit CHANGE EVERY 2 [...] involving left anterior descending (LAD) coronary artery ([facility]) 05/28/2015 Hyperlipidemia Interstitial lung disease ([facility]) Left ventricular failure ([facility]) MRSA (methicillin resistant staph aureus) culture positive Peptic ulceration Presence of automatic (implantable) cardiac defibrillator ST elevation (STEMI) myocardial infarction ([facility]) 2015 x 5 stents Stage 3b chronic kidney disease ([facility]) 04/22/2020 Unilateral complete AKA, right ([facility]) 03/31/2022 No data recorded No data recorded No data recorded Past Surgical History: Procedure Laterality Date ANKLE LIGAMENT RECONSTRUCTION Right 2020 APPLICATION AMNIOFILL Right 12/27/2018 Performed by Arlen Olguin DPM at [facility] APPLICATION WOUND VAC ( NOT done) Right 01/27/2019 Performed by Terry Hector DPM at [facility] CARDIAC DEFIBRILLATOR PLACEMENT 07/13/2015 [employer] COLONOSCOPY N/A 04/07/2020 Performed by Deon Braxton DO at [facility] DEBRIDEMENT FOOT EXCISION RT FOOT ULCER, APPLICATION BIOLOGIC SKIN GRAFT RT FOOT, APPLICATION OF WOUND VAC RT FOOT Right 01/27/2019 Performed by Terry Hector DPM at [facility] DEBRIDEMENT FOOT WITH APPLICATION OF GRAFIX Right 09/15/2019 Performed by Terry Hector DPM at [facility] ESOPHAGOGASTRODUODENOSCOPY N/A 05/19/2020 Performed by Deon Braxton DO at [facility] EXCISION 5TH METATARSAL Right 12/30/2018 Performed by Terry Hector DPM at [facility] FOOT SURGERY 07/2020 [facility] [...] min Stress: No Stress Concern Present (04/11/2022) [employer] - Occupational Stress Questionnaire [...] Verbalized understanding 2. Coronary artery disease involving [place] coronary artery of [place] heart without angina pectoris -aspirin, statin, beta-doreen [...] Referring Physician: Deon Braxton DO [address] [place] [address] FANNY Owens 04/12/23 1145 Office note faxed to Dr Lee for clearance documented in this encounter [facility] 12-05-2022 Evaluation note Encounter Date Diagnosis Assessment Notes Dec, Charcot foot due to diabetes mellitus (ICD-10 - E11.610) Dec, Status post transmetatarsal amputation of left foot (ICD-10 - Z89.432) as above, RX written. Dec, Hx of right BKA (ICD-10 - Z89.511) [facility] Other 07-06-2023 Evaluation note* Encounter Date Diagnosis [...] months. Sep, Peripheral polyneuropathy (ICD-10 - G62.9) [facility] Other 05-03-2023 Evaluation note* Encounter Date Diagnosis [...] elsewhere classified, subsequent encounter (ICD-10 - T81.31XD) [employer] [facility] Other 03-03-2023 Evaluation note* Encounter Date Diagnosis [...] this time. Patient is following up at [facility] for changes to prosthetic. I did recommend use of a cane to help offload some weight which may reduce his pain. Patient voiced understanding and states no further questions at this time. May, Other specified postprocedural states (ICD-10 - Z98.890) May, Postoperative wound dehiscence, initial encounter (ICD-10 - T81.31XA) [employer] [facility] Other 01-27-2023 Evaluation note* Encounter Date Diagnosis [...] wound dehiscence, initial encounter (ICD-10 - T81.31XA) [employer] Check Other 01-11-2023 Evaluation note* Encounter Date Diagnosis [...] irritation present from prostetic, patient will see Leimt[facility]anielers for any adjustments that need to be made. We will continue to monitor. Follow up in 2 months time. Patient voices understanding and states no further questions. Apr, Other specified postprocedural states (ICD-10 - Z98.890) Apr, Postoperative wound dehiscence, initial encounter (ICD-10 - T81.31XA) [employer] It [employer] Check Other 12-14-2022 Evaluation note* Encounter Date Diagnosis [...] wound dehiscence, initial encounter (ICD-10 - T81.31XA) [employer] Check Other 11-08-2022 Evaluation note* Encounter Date Diagnosis Assessment Notes Treatment Notes Treatment Clinical Notes Jan, Right below-knee amputee (ICD-10 - Z89.511) Proceed with K3 level, transtibial prosthesis, preparatory. Diligent monitoring of residual limb. Stop wearing prosthesis immediately if wound should worsen, develop erythema, increased pain, etc. Wearing schedule. [employer] It [employer] Check Other 11-04-2022 Evaluation note* Encounter Date Diagnosis [...] wound dehiscence, initial encounter (ICD-10 - T81.31XA) [employer] It [employer] Check Other 10-21-2022 Evaluation note* Encounter Date Diagnosis [...] wound dehiscence, initial encounter (ICD-10 - T81.31XA) [employer] It [employer] Check Other 10-07-2022 Evaluation note* Encounter Date Diagnosis [...] wound dehiscence, initial encounter (ICD-10 - T81.31XA) [employer] It [employer] Check Other 09-23-2022 Evaluation note* Encounter Date Diagnosis [...] wound dehiscence, initial encounter (ICD-10 - T81.31XA) [employer] It [employer] Check Other 09-14-2022 Evaluation note* Encounter Date Diagnosis [...] wound dehiscence, initial encounter (ICD-10 - T81.31XA) [employer] It [employer] Check Other 09-09-2022 Evaluation note* Encounter Date Diagnosis [...] infectious disease. Faxed wound center information to [phone] and left a voicemail. Dec, Other specified postprocedural states (ICD-10 - Z98.890) Dec, Postoperative wound dehiscence, initial encounter (ICD-10 - T81.31XA) Ship It Bag Check Other 08-30-2022 History and physical note Author Reddy Brandt [facility] November 29, 2021 11:49am Note Date/Time November 29, 2021 11 :32am [facility] [address] [place] [address] Orthopedic Surgery H&P Signed Patient: Anai Goodman MR#: [id number] : 1955 Acct:[id number] Age/Sex: 66 / M Adm Date: 2 Loc: [place] Room: Type: [facility] Attending Dr: Reddy [...] poor healing. I have advised against the intermediate accountant use of narcotic pain medication. I have advised to follow all post-operative instructions in order to obtain the best outcome. Informed consent has been verbally affirmed and signed as indicated. Documented By: Reddy Brandt DO 11/29/21 1129 Signed By: <Electronically signed by Reddy Brandt DO> 11/29/[address] [facility] Work Phone: 1(145) 412-913408-29-2022 Evaluation note* Encounter Date Diagnosis Assessment Notes [...] remova l of sutures (ICD-10 - Z48.02) Ship It Bag Check Other 08-03-2022 Evaluation note* Encounter Date Diagnosis [...] was in understanding and wishes to proceed. Ship It [employer] Check Other 08-01-2022 Evaluation note* Encounter Date Diagnosis [...] move forward with treatment at this time. Ship It Bag Check Other 07-27-2022 Progress note Author Ghanshyam Kaye [facility] October 25, 2021 11:37pm Note Date/Time October 25, 2021 11:3 7pm [facility] [address] [place] [address] Physiatry(Rehab) Progress Note Signed Patient: Anai Goodman MR#: [id number] : 1955 Acct:[id number] Age/Sex: 66 / M Adm Date: 2 Loc: Room: 0I9914-3 Type : ADM IN Attending Dr: Ghanshyam Kaye MD Copies to: ~ Date of Service: 10/25/2021 Subjective Subjective Narrative: Mr. Goodman is a 66 year old male who is admitted to [facility] inpatient rehab for strengthening s/p planned right BKA. Patient's past medical history significant for DM type II, CAD, AK, s/p pacemaker/defibrillator insertion, CKD, osteomyelitis of the [...] % (Auto) 69.1 Lymph % (Auto) 9.4 Ocean % (Auto) 14.5 Eos % (Auto) 6.7 Baso % (Auto) 0.3 Neut # (Auto) 4.0 Lymph # (Auto) 0.5 L Ocean # (Auto) 0.8 Eos # (Auto) 0.4 [...] MPV Neut % (Auto) Lymph % (Auto) Ocean % (Auto) Eos % (Auto) Baso % (Auto) Neut # (Auto) Lymph # (Auto) Ocean # (Auto) Eos # (Auto) Baso # [...] mg 10/21/21 17:51 Bisacodyl 10 Mg Supp.Rect ID 10/21/22 17:50 DAILY PRN Constipation Bumetanide 1 [...] 17:51 Docusate Enema 283 Mg/5 Ml Enema ID 10/21/22 17:50 DAILY PRN Constipation Insulin Aspart 0 units 10/21/21 17:00 10/25/21 20:27 Insulin Aspart 300 Units/3 Ml Insuln.Pen SUBCUT 10/21/22 16:59 7 units TID.WM.HS CB Administration Protocol Insulin Aspart 0 units 10/21/21 17:00 10/25/21 20:30 Insulin Aspart 300 Units/3 Ml Insuln.Pen SUBCUT 10/21/22 16:59 Not Given TID.WITH.MEALS.[facility] Protocol Insulin Detemir 40 units 10/21/21 22:00 [...] QAM CB Administration Vitamin D 250 mcg 07/22/22 21:00 10/25/21 20:28 Cholecalciferol 125 Mcg (5,000 [...] equipment to enhance the patient's a functional congregation Ensure adequate nutrition and hydration Sleep: Denies any issues Pain: Denies any issues Discharge planning: Home with in 7 to 10 days. I spent greater than 25 minutes for services, including tiqm-kq-yqgh encounter with the patient, discussion of the case, plan of care, and exam; and vtayjam-ms-txkn activities, such as reviewing pertinent quality improvement consultant documentation, recent therapy notes, laboratory and radiology studies, and discussionof case with care team including nursing, piano case maker, and therapists. More than 50 % of time was spent on patient/family counseling or coordination ofcare. Documented By: Ghanshyam Kaye MD 10/25/212333 Signed By: <Electronically signed by Ghanshyam Kaye MD> 10/25/212336 [facility] Work Phone: 1(514) 781-537907-26-2022 Progress note Author Ghanshyam Kaye [facility] October 25, 2021 10:20am Note Date/Time October 23, 2021 11:5 7am [facility] [address] [place] [address] Physiatry(Rehab) Progress Note Signed Patient: Anai Goodman MR#: [id number] : 1955 Acct:[id number] Age/Sex: 66 / M Adm Date: 2 Loc: Room: [address] [place] [address] Type : ADM IN Attending Dr: Ghanshyam Kaye MD Copies to: ~ <Chante Narayan APRN - Last Filed: 10/23/21 11:57> Date of Service: 10/23/2021 Subjective <Chante Narayan APRN - Last Filed: 10/23/21 11:57> Subjective Narrative: Mr. Goodman is a 66 year old male who is admitted to [facility] inpatient rehab for strengthening s/p planned right BKA. Patient's past medical history significant for DM type II, CAD, AK, s/p pacemaker/defibrillator insertion, CKD, osteomyelitis of the [...] Asking about discharge, wants to talk to rifle case repairer about insurance coverage, but thinks he would [...] additional complaints, except as documented Exam <Chante Narayan, CONTINUITY WRITER - Last Filed: 10/23/21 11:57> Physical Exam [...] Tablet PO 10/21/22 21:59 100 mg QHS [facility] Administration Atorvastatin Calcium 80 mg 10/22/21 09:00 10/23/21 09:07 Atorvastatin 80 Mg Tablet PO 10/22/22 08:59 80 mg QAM CB Administration Bisacodyl 10 mg 10/21/21 17:51 Bisacodyl 10 Mg Supp.Rect ID 10/21/22 17:50 DAILY PRN Constipation Bumetanide 2 mg 10/21/21 21:00 10/23/21 09:07 Bumetanide 2 Mg Tablet PO 10/21/22 20:59 2 mg BID CB Administration Carvedilol 6.25 mg 10/21/21 21:00 10/23/21 09:07 Carvedilol 6.25 Mg Tablet PO 10/21/22 20:59 6.25 mg BID [facility] Administration Docusate Sodium 100 mg 10/21/21 17:51 Docusate 100 Mg Capsule PO 10/21/22 17:50 BID PRN Constipation Docusate Sodium 283 mg 10/21/21 17:51 Docusate Enema 283 Mg/5 Ml Enema ID 10/21/22 17:50 DAILY PRN Constipation Insulin Aspart 0 units 10/21/21 17:00 10/23/21 09:05 Insulin Aspart 300 Units/3 Ml Insuln.Pen SUBCUT 10/21/22 16:59 1 units TID.WM.[facility] Administration Protocol Insulin Aspart 0 units 10/21/21 17:00 10/23/21 09:06 Insulin Aspart 300 Units/3 Ml Insuln.Pen SUBCUT 10/21/22 16:59 4 units TID.WITH.MEALS.[facility] Administration Protocol Insulin Detemir 40 units 10/21/21 [...] 08:59 25 mg QAM [facility] Administration Vitamin D 250 mcg 10/21/21 21:00 10/23/21 09:07 Cholecalciferol 125 Mcg (5,000 Units) Tablet PO 10/21/22 20:59 250 mcg BID CB Administration Assessment/Plan <Chante Narayan, CONTINUITY WRITER - Last Filed: 10/23/21 11:57> Assessment/Plan (1) [...] equipment to enhance the patient's a functional congregation Ensure adequate nutrition and hydration Sleep: Denies any issues Pain: Denies any issues Discharge planning: Home with in 7 to 10 days. I spent greater than 15 minutes for services, including tfuz-uk-aecm encounter with the patient, discussion of the case, plan of care, and exam; and gpmgcxj-bw-vrcj activities, such as reviewing pertinent quality improvement consultant documentation, recent therapy notes, laboratory and radiology studies, and discussion of case with care team including physician, nursing, piano case maker, and therapists. More than 50 % of [...] the chart, including currentorders, allied health and quality improvement consultant notes, labs/imaging and plan of care as above. Documented By: Chante Narayan APRN 10/23/21 1 150 Signed By: <Electronically signed by KRUNAL Narayan> 10/23/21 1157 <Electronically signed by Ghanshyam Kaye MD> 10/25/21 1020 [facility] Work Phone: 1(886) 447-254907-26-2022 History and physical note Author Ghanshyam Kaye [facility] October 25, 2021 9:36am Note Date/Time October 22, 2021 9:59 am [facility] [address] [place] [address] Physiatry (Rehab) H&P Signed Patient: Anai Goodman MR#: [id number] : 1955 Acct:[id number] Age/Sex: 66 / M Adm Date: 2 Loc: Room: [address] [place] [address] Type : ADM IN Attending Dr: Ghanshyam Kaye MD Copies to: KRUNAL Mendez DO Joseph Riley, MD~ <Chante Narayan APRN - Last Filed: 10/22/21 10:24> Date of Service: 10/22/2021 HPI <Chante Narayan APRN - Last Filed: 10/22/21 10:24> The patient was seen and examined on: 10/21/21 History of Present Illness: Mr. Goodman is a 66 year old male who is admitted to [facility] inpatient rehab for strengthening s/p planned right BKA. Patient's past medical history significant for DM type II, CAD, AK, s/p pacemaker/defibrillator insertion, CKD, osteomyelitis of the [...] one-storycondo with one-step to enter. PMFSH <Chante Narayan, CONTINUITY WRITER - Last Filed: 10/22/21 10:24> Vaccinated for [...] Bisacodyl (Bisacodyl 10 Mg Supp.Rect) 10 mg ID DAILY PRN PRN Reason: Constipation Stop: 10/21/22 17:50 Bumetanide (Bumetanide 2 Mg Tablet) 2 mg PO BID CB Stop: 10/21/22 20:59 Last Admin: 10/22/21 08:02 Dose: 2 mg Carvedilol (Carvedilol 6.25 Mg Tablet) 6.25 mg PO BID CB Stop: 10/21/22 20:59 Last Admin: 10/22/21 08:02 Dose: 6.25 mg Docusate Sodium (Docusate 100 Mg Capsule) 100 mg PO BID PRN PRN Reason: Constipation Stop: 10/21/22 17:50 Docusate Sodium (Docusate Enema 283 Mg/5 Ml Enema) 283 mg ID DAILY PRN PRN Reason: Constipation Stop: 10/21/22 17:50 Insulin Aspart (Insulin Aspart 300 Units/3 Ml Insuln.Pen) 0 units SUBCUT TID.WM.[facility]; Protocol Stop: 10/21/22 16:59 Last Admin: 10/22/21 08:01 Dose: 1 units Insulin Aspart (Insulin Aspart 300 Units/3 Ml Insuln.Pen) 0 units SUBCUT TID.WITH.MEALS.[facility]; Protocol Stop: 10/21/22 16:59 Last Admin: 10/22/21 08:01 Dose: 4 units Insulin Detemir (Insulin Detemir 300 Units/3 Ml Insuln.Pen) [facility] Stop: 10/21/22 21:59 Last Admin: 10/21/21 22:02 Dose: 40 units Lactulose (Lactulose 20 Gm/30 Ml Udc) 30 gm PO DAILY PRN PRN Reason: Constipation Stop: 10/21/22 17:50 Losartan Potassium (Losartan 25 Mg Tablet) 25 mg PO QAM [facility] Stop: 10/22/22 08:59 Last Admin: 10/22/21 08:05 Dose: 25 mg Magnesium Oxide (Magnesium Oxide 400 Mg Tablet) 400 mg PO [facility] Stop: 10/22/22 08:59 Last Admin: 10/22/21 08:05 Dose: 400 mg Multivitamins (Multivitamin 1 Tab Tablet) 1 tab PO QAM [facility] Stop: 10/22/22 08:59 [...] good Judgment: judgment good Results <Chante Narayan, CONTINUITY WRITER - Last Filed: 10/22/21 10:24> Labs Labs: Laboratory Results - last 24 hr 10/21/21 10/22/21 10/22/21 20:20 05:59 06:19 Corrected WBC 6.6 Uncorrected WBC Count 6.6 RBC 3.99 Hgb 11.8 L Hct 34.6 L MCV 86.7 MCH 29.5 MCHC 34.0 RDW 17.8 H Plt Count 148 L MPV 8.8 Neut % (Auto) 70.1 Lymph % (Auto) 10.0 Ocean % (Auto) 14.8 Eos % (Auto) 4.5 Baso % (Auto) 0.6 Neut # (Auto) 4.6 Lymph # (Auto) 0.7 L Ocean # (Auto) 1.0 H Eos # (Auto) [...] MPV Neut % (Auto) Lymph % (Auto) Ocean % (Auto) Eos % (Auto) Baso % (Auto) Neut # (Auto) Lymph # (Auto) Ocean # (Auto) Eos # (Auto) Baso # [...] needed for rehabilitation care. Functional Status <Chante KRUNAL Narayan - Last Filed: 10/22/21 10:24> Prior Level [...] 14 days Expected Discharge Destination: Home Rehabilitation [facility]: 05.4 Primary Diagnosis: Right BKA Patient?s/Family?s [...] 24 hour daily monitoring and intervention from Physical Meteorologist as well as other consulting physicians including internal medicine as well as 24 hour daily pattern drafter nursing - for medical safe / optimal [...] equipment to enhance the patient's a functional congregation Ensure adequate nutrition and hydration Sleep: Denies any issues Pain: Denies any issues Discharge planning: Home with in 7 to 10 days. I spent greater than 30 minutes for services, including ypdo-rn-oivq encounter with the patient, discussion of the case, plan of care, and exam; and saolilu-wx-zdjw activities, such as reviewing pertinent quality improvement consultant documentation, recent therapy notes, laboratory and radiology studies, and discussion of case with care team including physician, nursing, piano case maker, and therapists. More than 50 % of [...] Allied health note review, nursing note review, quality improvement consultant note review, discussion with nursing and [...] chart, including current orders, allied health and quality improvement consultant notes, labs/imaging and performed rosado elements of exam and I formulated the plan of care and facilitated the medical decision making and confirmed the nurse practitioner note, as above Documented By: Chante Narayan APRN 10/22/21 0 949 Signed By: <Electronically signed by KRUNAL Narayan> 10/22/21 1024 <Electronically signed by Ghanshyam Kaye MD> 10/25/[address] [facility] Work Phone: 1(781) 714-753507-24-2022 Progress note Author Bronwyn Alegre [facility] October 23, 2021 3:11pm Note Date/Time October 23, 2021 3:11 pm [facility] [address] [place] [address] Hospitalist Progress Note Signed Patient: Anai Goodman MR#: [id number] : 1955 Acct:[id number] Age/Sex: 66 / M Adm Date: 2 Loc: Room: [address] [place] [address] Type : ADM IN Attending Dr: Ghanshyam [...] mg 10/21/21 17:51 Bisacodyl 10 Mg Supp.Rect ID 10/21/22 17:50 DAILY PRN Constipation Bumetanide 1 [...] 17:51 Docusate Enema 283 Mg/5 Ml Enema ID 10/21/22 17:50 DAILY PRN Constipation Insulin Aspart 0 units 10/21/21 17:00 10/23/21 13:13 Insulin Aspart 300 Units/3 Ml Insuln.Pen SUBCUT 10/21/22 16:59 2 units TID.WM. CB Administration Protocol Insulin Aspart 0 units 10/21/21 17:00 10/23/21 13:14 Insulin Aspart 300 Units/3 Ml Insuln.Pen SUBCUT 10/21/22 16:59 5 units TID.WITH.MEALS.[facility] Administration Protocol Insulin Detemir 40 units 10/21/21 [...] Losartan, Spironolactone 2.? GRACY on CPAP 3. G8QU-V8g 7.3, continue detemir, SSI 4. CKD 3?trend [...] PCP and out patient providers to obtain [facility] record entirely to follow up on illnesses, symptoms, abnormal findings that I have and have not addressed duringthis encounter and hospitalization in out patient setting. Documented By: Bronwyn Alegre MD 10/23/21 4453 Signed By: <Electronically signed by Bronwyn Alegre MD> 10/23/21 1511 [facility] Work Phone: 1(212) 283-593607-24-2022 Consult note Author Bronwyn Alegre [facility] October 23, 2021 7:04am Note Date/Time October 22, 2021 4:18 pm [facility] [address] [place] [address] Hospitalist Consult Note Signed Patient: Anai Goodman MR#: [id number] : 1955 Acct:[id number] Age/Sex: 66 / M Adm Date: 2 Loc: Room: [address] [place] [address] Type : ADM IN Attending Dr: Ghanshyam [...] negative unless noted below or in HPI [facility] Attestation Statement: The following information was [...] mg 10/21/21 17:51 Bisacodyl 10 Mg Supp.Rect ID 10/21/22 17:50 DAILY PRN Constipation Bumetanide 2 [...] 17:51 Docusate Enema 283 Mg/5 Ml Enema ID 10/21/22 17:50 DAILY PRN Constipation Insulin Aspart 0 units 10/21/21 17:00 10/22/21 12:45 Insulin Aspart 300 Units/3 Ml Insuln.Pen SUBCUT 10/21/22 16:59 2 units TID.WM.[facility] Administration Protocol Insulin Aspart 0 units 10/21/21 17:00 10/22/21 12:46 Insulin Aspart 300 Units/3 Ml Insuln.Pen SUBCUT 10/21/22 16:59 2 units TID.WITH.MEALS.[facility] Administration Protocol Insulin Detemir 40 units 10/21/21 [...] F 79 12 124/66 98 Room Air 21 10/22/21 14:26 10/22/21 14:26 10/22/21 14:26 10/22/21 [...] % (Auto) 70.1, Lymph % (Auto) 10.0, Ocean % (Auto) 14.8, Eos % (Auto) 4.5, Baso % (Auto) 0.6, Neut # (Auto) 4.6, Lymph # (Auto) 0.7 L, Ocean # (Auto) 1.0 H, Eos # (Auto) [...] Losartan, Spironolactone 2.? GRACY on CPAP 3. [id number] 7.3, continue detemir, SSI 4. CKD 3?trend labs Documented By: ABDIRASHID Olmedo 2 [id number] Signed By: <Electronically signed by ANP-BC Faviola Matias> 10/22/21 1658 <Electronically signed by Bronwyn Alegre MD> 10/23/21 0704 [facility] Work Phone: 1(899) 684-115807-22-2022 Progress note Author Rodriguez Loera [facility] October 21, 2021 8:37am Note Date/Time October 20, 2021 11:0 8am [facility] [address] [place] [address] Hospitalist Progress Note Signed Patient: Anai Goodman MR#: [id number] : 1955 Acct:[id number] Age/Sex: 66 / M Adm Date: 2 Loc: 4N Room: 7Q9258-5 Type : ADM IN Attending Dr: Reddy [...] Lactated Ringers IV 10/18/22 07:29 Not Given .[id number] CB Insulin Aspart 0 units 10/18/21 08:00 [...] signed by Rodriguez Loera MD> 10/21/[address] [facility] Work Phone: 1(658) 218-371407-21-2022 Progress note Author Rodriguez Loera [facility] October 20, 2021 8:45am Note Date/Time October 19, 2021 11:2 8am [facility] [address] [place] [address] Hospitalist Progress Note Signed Patient: Anai Goodman MR#: [id number] : 1955 Acct:[id number] Age/Sex: 66 / M Adm Date: 2 Loc: 4N Room: [address] [place] [address] Type : ADM IN Attending Dr: Reddy [...] Lactated Ringers IV 10/18/22 07:29 75 mls/hr .[id number] CB Administration Insulin Aspart 0 units 10/18/21 [...] Spironolactone 2. GRACY on CPAP Documented By: SATURNINO Olmedo- 2 1128 Signed By: <Electronically signed by ANP-BC Faviola Matias> 10/19/21 1440 <Electronically signed by Rodriguez Loera MD> 10/20/21 0845 [facility] Work Phone: 1(826) 511-935207-20-2022 Progress note Author Reddy Brandt [facility] October 19, 2021 12:11pm Note Date/Time October 19, 2021 12:1 1pm [facility] [address] [place] [address] Orthopedic Progress Note Signed Patient: Anai Goodman MR#: [id number] : 1955 Acct:[id number] Age/Sex: 66 / M Adm Date: 2 Loc: 4N Room: [address] [place] [address] Type : ADM IN Attending Dr: Reddy [...] by Reddy Brandt DO> 10/19/[address] [facility] Work Phone: [phone]) 506-306707-20-2022 Consult note Author Stewart Lucio [facility] October 19, 2021 1:42am Note Date/Time October 19, 2021 1:11 am [facility] [address] [place] [address] Hospitalist Consult Note Signed Patient: Anai Goodman MR#: [id number] : 1955 Acct:[id number] Age/Sex: 66 / M Adm Date: 2 Loc: 4N Room: [address] [place] [address] Type : ADM IN Attending Dr: Reddy [...] negative unless noted in the HPI below [facility] Attestation Statement: The following information was [...] Lactated Ringers IV 10/18/22 07:29 75 mls/hr .[id number] CB Administration Cefazolin Sodium 1 gm in [...] Ml Insuln.Pen SUBCUT 10/18/22 07:59 6 units TID.WM.[facility] Administration Protocol Insulin Aspart 0 units 10/18/21 17:00 10/18/21 23:37 Insulin Aspart 300 Units/3 Ml Insuln.Pen SUBCUT 10/18/22 16:59 Not Given TID.WM.[facility] Insulin Detemir 40 units 10/18/21 22:00 10/18/21 21:39 Insulin Detemir 300 Units/3 Ml Insuln.Pen SUBCUT 10/18/22 21:59 40 units QHS [facility] Administration Losartan Potassium 25 mg 10/19/21 [...] 60 Puff Inhaler INHALATION 10/19/22 08:59 BID [facility] Sodium Chloride 0 ml 10/18/21 14:00 [...] signed by Stewart Lucio MD> 10/19/21 0142 [facility] Work Phone: [phone]) 439-855707-13-2022 Evaluation note* Encounter Date Diagnosis Assessment Notes [...] poor healing. I have advised against the intermediate accountant use of narcotic pain medication. I have [...] osteomyelitis of right tibia (ICD-10 - M86.661) Ship It Bag Check Other 07-07-2022 Evaluation note* Encounter Date Diagnosis Assessment Notes Treatment Notes Treatment Clinical Notes Sep, Other chronic osteomyelitis of right tibia (ICD-10 - M86.661) Ship It Bag Check Other 07-07-2022 Evaluation note* Encounter Date Diagnosis [...] place his pacemaker into MRI mode. Anyway cardiovascular surgical tech was very helpful and she is [...] worse they are to call me WALT. Ship It Bag Check Other 06-09-2022 Evaluation note* Encounter Date Diagnosis [...] to a suppressive dose at that time Ship It Bag Check Other 11-23-2021 NoteChief Complaint Basal cell carcinoma [...] 03/03/2021 PATIENT : 1955 LOCATION OF PROCEDURE: [facility] SURGEON: Chirag Gutierrez DO INFORMED CONSENT: Obtained by and on file at [facility] CC: [Basal cell carcinoma left ear [...] get a repeat audiogr (more content not included)...[facility]10-11-2021 NoteChief Complaint Open wound Left ear History of Present Illness PLANNED PROCEDURE: Excision and preparation of surgical site, complex plastics myocutaneous advancement flap tear of left ear defect DATE OF PROCEDURE: 01/11/2021 PATIENT : 1955 LOCATION OF PROCEDURE: [facility], SURGEON: Chirag Gutierrez DO INFORMED CONSENT: Obtained by and on file at [facility] CC: Basal cell carcinoma left ear [...] reconstruction amputation of le (more content not included)...[facility] 01-05-2021 NoteChief Complaint MOHs procedure to [...] Dr. Freed. Previous pathology by physician in [place] about 1 year ago. PMHx of multiple [...] This patient presented to the [facility] with a chief concern of skin [...] and corroborated preoperatively wit (more content not included)...[facility]10-06-2021 NoteClinical Information Procedure: Excision with frozen section left ear Pre-operative diagnosis: Basal cell carcinoma Outside pathology report from [facility] was received with accession number [id number]. SP Specimen A Skin of left ear, [...] skin without gross lesi (more content not included)...[facility]:Performed By: #### SPR ####[facility] (DEFAULT)[address] [place], [place] [address]Discharge summary Author Ghanshyam Kaye [facility] October 28, 2021 10:30am Note Date/Time October 27, 2021 1:34 pm [facility] [address] [place] [address] Discharge Summary Signed Patient: Anai Goodman MR#: [id number] : 1955 Acct:[id number] Age/Sex: 66 / M Adm Date: 2 Loc: Room: 4S6205-[address]: Ghanshyam Kaye MD Copies to: KRUNAL Mendez DO Joseph Riley, MD~ Providers <Chante Narayan APRN - Last [...] year old male who was [facility] s/p planned right BKA. His past medical history significant for DM type II, CAD, [place], s/p pacemaker/defibrillator insertion, CKD, osteomyelitis of the [...] Patient's was on Xarelto while inpatient. Per [facility] pharmacy , insurance co-pay would be over [...] Prescribed necessary DME at discharge when indicated <Ghanhsyam Kaye MD - Last Filed: 10/28/21 10:30> Hospital Course Hospital course: Mr. Goodman is a 66 year old male who was admitted to [facility] s/p planned right BKA. His past medical history significant for DM type II, CAD, [place], s/p pacemaker/defibrillator insertion, CKD, osteomyelitis of the [...] Patient's was on Xarelto while inpatient. Per [facility] pharmacy , insurance co-pay would be over$120 for this medication. Patient was Eliquis per home regimen, will discontinue Xarelto and resume Eliquis per home dose. Agree with above Status at Discharge Functional status at discharge: uses cane/walker Overall status at discharge: patient is progressing back to baseline Diagnostic Studies <Chante KRUNAL Narayan - Last Filed: 10/27/21 13:34> Completed and Pending Studies Labs on day of discharge: 10/27/21 11:29: POC Glucose 166, POC Glucose Comment Glu2: cleaned meter 10/27/21 07:18: POC Glucose 103, POC Glucose Comment Glu2: cleaned meter 10/26/21 20:46: POC Glucose 257 10/26/21 16:29: POC Glucose 197, POC Glucose Comment Glu2: cleaned meter Exam <Chante KRUNAL Narayan - Last Filed: 10/27/21 13:34> Physical Exam [...] home prior. Your Home Health agency is [employer] ( ). They will usually contact you [...] them prior to your appointment. Instructions: Amputation, [id number] (DC) Stand Alone Forms: Insulin Corrective Scale [...] signed by Ghanshyam Kaye MD> 10/28/[address] [facility] Work Phone: Evaluation noteNo [employer] Other Evaluation note* Diagnosis Onset Date Resolution Status Below knee amputation acute Type [address] [facility] Work Phone: Evaluation note* Diagnosis Onset Date [...] wound of skin acute Wound dehiscence acute [facility] Work Phone: Evaluation note* Diagnosis Onset Date Resolution Status Below knee amputation acute Dehiscence of wound of skin acute Wound dehiscence acute [facility] Work Phone: Evaluation noteNo assessment information available [facility] Work Phone: Evaluation note* Diagnosis Preop cardiovascular exam- Primary Pre-operative cardiovascular examination Coronary artery disease involving [place] coronary artery of [place] heart without angina pectoris Ischemic cardiomyopathy Other specified forms of chronic ischemic heart disease Chronic systolic congestive heart failure ([facility]) Apical mural thrombus Essential (primary) hypertension Unspecified essential hypertension Cardiac defibrillator in place- [employer] Automatic implantable cardiac defibrillator in situ Mixed hyperlipidemia [facility] SystemEvaluation [facility]* Diagnosis Type 2 diabetes mellitus with diabetic neuropathic arthropathy, with long-term current use of insulin ([facility]) documented [facility] this encounter [facility] System[facility]* Diagnosis Pure hypercholesterolemia documented in this encounter [facility] SystemEvaluation [facility]* Diagnosis Chronic systolic congestive heart failure ([facility]) documented in this encounter [facility] SystemEvaluation [facility]* Diagnosis Sarcoidosis with granulomatous hepatitis documented in this encounter [facility] SystemEvaluation [facility]* Diagnosis Type 2 diabetes mellitus with diabetic neuropathic arthropathy, with long-term current use of insulin ([facility]) documented in this encounter [facility] CenterHistory general Narrative - Reported* Type Description Date Medical History DM1 Medical History HTN Medical History HYPERLIPEDEMIA Surgical History LEFT FOOT SURGERY WITH REMOVAL OF ALL FIVE TOES Surgical History heart cath with 5 stents placem ent Hospitalization History MRSA 2011 Hospitalization History Heart Ship It Bag Check Other Hisgsdh general Narrative - Reported* Type Description Date Medical History DM1 Medical History HTN Medical History HYPERLIPEDEMIA Surgical History LEFT FOOT SURGERY WITH REMOVAL OF ALL FIVE TOES Surgical History heart cath with 5 stents placem ent Surgical History 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 hx. 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 DATE CREATED AUTHOR AUTHOR'S ORGANIZ ATION 08/03/2023 [facility] DATE CREATED AUTHOR AUTHOR'S ORGANIZ ATION 08/04/2023 [facility] DATE CREATED AUTHOR AUTHOR'S ORGANIZ ATION 09/07/2023 [facility] DATE CREATED AUTHOR AUTHOR'S ORGANIZ ATION 10/03/2023 [facility] REASON FOR VISIT (unrecogniz ed [...] Cordovadonna , DO Primary Care Provider Active Reddy Brandt , DO Attending Provider Active Team Status: Inactive Member Role Status Dates Deon Cordovadonna , DO Primary Care Provider Active Reddy [...] Murillo MD Other Provider Active Mai Britton SENIOR NETWORK ENGINEER-C Other Provider Active Christiano Evans MD Other Provider Active Isidro Antunez MD Other Provider Active Rosalind Coburn MD Other Provider Active Bill Osei MD Other Provider Active Lizbeth Mcbride , DO Other Provider Active Fabio Sanchez MD Other Provider Active Kwesi Muhammad , DO Other Provider Active Bre Patel CONTINUITY WRITER Other Provider Active Bin Carrera , DO Other Provider Active Patti Taylor MD Other Provider Active Kassandra Munoz , NBA Other Provider Active Team Status: Inactive Member Role Status Dates Deon Braxton , DO Primary Care Provider Active Reddy Brandt , DO Referring Provider Active Darien Bailey SENIOR NETWORK ENGINEER-C Attending Provider Activ e Team Status: Active [...] RN Other Provider Active Marci Ruiz , NBA Other Provider Active Aliza Sorensen , RN Other Provider Active Tatiana Jasso , NBA Other Provider Active Radha Frederick , NBA Other Provider Active Jana Parmar , NBA Other Provider Active Bronwyn Aleger MD Other Provider Active Fredi Mendez MD [...] MD Other Provider Active Mai Britton , SENIOR NETWORK ENGINEER-C Other Provider Active Christiano Evans MD Other [...] DO Admit Provider, Attending Provide r Active Van Driver Relationship Specialty Start Date End Date Deon Braxton, DO [address] [place] [address] PCP - General Internal Medicine 01/22/17 Van Driver Relationship Specialty Start Date End Date Deon Braxton DO [address] [place] [address] PCP - General Internal Medicine 01/22/17 Team Status: Inactive Member Role Status Dates Deon Braxton DO Primary Care Provider Active Sta rt: April 19, 2023 End: April 19, 2023 Salina Lee DPM MS Attending Provider Active Start: April 19, 2023 End: April 19, 2023 Van Driver Relationship Specialty Start Date End Date Deon Braxton DO [address] [place] [address] PCP - General Internal Medicine 01/22/17 Van Driver Relationship Specialty Start Date End Date Deon Braxton DO [address] [place] [address] PCP - General Internal Medicine 01/22/17 Van Driver Relationship Specialty Start Date End Date Deon Braxton DO [address] [facility] [place] [address] PCP - General Internal Medicine 01/22/17 Goals [...] BE BASED ON THE PRIMARY CLINICAL RECORDS. [employer] provides no warranty or guarantee of the accuracy or completeness of information in this document.
[2023-10-05 13:05] LABS: Hemoglobin 10.1 g/dL (14.0-18.0); Mean Corpuscular HGB Conc 32.6 g/dL (29.9-35.2); Mean Corpuscular Hemoglobin 28.5 pg (25.9-34.0); Mean Corpuscular Volume 87.3 fL (80.0-94.0); Mean Platelet Volume 9.3 fL (9.5-13.5); Platelet Count 277 10^3/uL (150-450); Red Blood Count 3.55 10^6/uL (4.70-6.10); White Blood Count 9.6 10^3/uL (4.0-11.0)
[2023-10-05 13:12] LABS: Erythrocyte Sedimentation Rate 101 mm/hr (<=20)
[2023-10-05 13:25] LABS: Eosinophils Absolute Manual 0.09 10^3/uL (0.00-0.70); Lymphocytes Absolute Manual 0.48 10^3/uL (1.20-3.80); Monocytes Absolute Manual 1.05 10^3/uL (0.30-0.80); Segmented Neut Absolute Manual 7.96 10^3/uL (1.4-6.5)
[2023-10-05 13:44] LABS: Alanine Aminotransferase 41 U/L (16-63); Albumin Globulin Ratio 0.5; Albumin Level 2.3 g/dL (3.4-5.0); Alkaline Phosphatase 97 U/L (46-116); Anion Gap 10.8; Aspartate Amino Transferase 29 U/L (15-37); BUN Creatinine Ratio 25.9; Bilirubin Total 0.4 mg/dL (0.2-1.0); C Reactive Protein 11.49 mg/dL (<=0.50); Carbon Dioxide 27.5 mmol/L (21.0-32.0); Chloride 104 mmol/L (98-107); Estimated GFR (African America 42 (>=60); Estimated GFR (Non-African Ame 34 (>=60); Globulin 4.9 g/dL; Glucose 127 mg/dL (74-106); Potassium 4.3 mmol/L (3.5-5.1); Sodium 138 mmol/L (136-145); Total Protein 7.2 g/dL (6.4-8.2)
[2023-10-05] MEDS: LINEZOLID IN DEXTROSE 5% 600 MG/300 ML PIGGYBACK 300 MG IV (14:33)
--- OUTSIDE RECORDS SUMMARY | 2023-10-05 15:13 | XMS_ITS | CCD ---
Author Organization [facility] [place] In[facility] Partnership [facility] Care Team Providers Care Academic Manager Name Role Phone DEON BRAXTON Primary Care [...] Mendez Other Provider KRUNAL Galvin Other Provider [phone] DO Julia Segura Other Provider [phone] MD Armando Hanks Other Provider [phone] DO Golden Whatley Other Provider MD [...] Other Provider DO Kwesi Muhammad Other Provider [phone] KRUNAL Patel Other Provider DO Bin Carrera Other Provider MD Patti Taylor Other Provider NBA Munoz Other Provider Unavailable BALJEET LEONG Admitting UnavailBALJEET Moss Attending UnavailDR DENO Au Primary Care Unavailable DR DEON BRAXTON [...] Unavailable IRAIS, DR CHAVARRIA Primary Care Unavailable [facility] SAL[facility] Walker Consulting Unavailable SALINA LEE Admitting Unavailable JESUS, SALINA Walker Attending Unavailable IRAIS, DR CHAVARRIA Primary Care Unavailable SALINA LEE Admitting Unavailable JESUS, SALINA Wlaker Attending Unavailable IRAIS, DR CHAVARRIA Primary Care [...] Unavailable BALJEET LEONG Consulting Unavailabl e CLOUGHERTYBALJEET Admitting Unavailabl e [...] CLOUGHERTY, BALJEET O Admitting Unavailabl e CLOUGHERTY, BALEJET O Attending Unavailabl e YUMARVAS, DR CHAVARRIA Primary Care Unavailable CLOUGHERTY, BALJEET O Admitting Unavailabl e CLOUGHERTY, BALJEET O Attending Unavailabl e IRAIS, DR CHAVARRIA Primary Care Unavailable IRAIS, DR CHAVARRIA Primary Care Unavailable HIGHLANDER, SALINA Walker Attending Unavailable HIGHLANDER, SALINA Walker Admitting Unavailable HIGHLANDER, SALINA Walker Attending Unavailable [place], DR ANAI Edmond Consulting Unavailable HIGHLANDER, SALINA [...] Care Unavailable HIGHLANDER, SALINA Walker Consulting Unavailable [facility] Walker Admitting Unavailable CLOUNAERTY, BALJEET O [...] Admit Provider MD Ghanshyam Kaye Attending Provider [phone] MD Bronwyn Alegre Other Provider ROHIT Palacios Emergency Provider [phone] Cortes, DO César Vega Emergency Provider [phone] Yuhas, DO Deon Primary Care Provider DO Reddy Brandt Attending Provider [phone] Yuhas, DO Deon Primary Care Provider DO Reddy Brandt Attending Provider [phone] DO César Cortes Emergency Provider DO Reddy Brandt Admit Provider Ghanshyam Kaye Unavailable Yuhas, DO Deon Primary Care Provider DO Reddy Brandt Attending Provider Dung Serna Unavailable Yumarvas Deon URENA Primary Care Provider TERRY LOCK Attending Unavailable YUHAS, DEON L Referring Unavailable YUHAS, DOEN L Primary Care Unavailable Yuhas, DO Deon Primary Care Provider ERIKA Lee Attending Provider Salina Lee Attending [...] Chlorpheniramine; Translations: [chlorpheniramine] Drug Allergy 07-02-19 21 [facility] Repository (15 sources) Dextromethorphan; Translations: [dextromethorphan] Drug Allergy 10-19-19 22 Unknown Reaction [facility] Repository (20 sources) Doxycycline; Translations: [doxycycline] Drug Allergy 04-02-19 21 FELT LIKE A HEART ATTACK, Chest Pain [facility] Repository (20 sources) guaiFENesin; Translations: [guaiFENesin] Drug Allergy 04-14-19 16 [facility] Repository (20 sources) levoFLOXacin; Translations: [levoFLOXacin] Drug Allergy 04-02-19 21 Chest Pain [facility] Repository (20 sources) Phenylephrine; Translations: [phenylephrine] Drug Allergy 07-02-19 Unknown Reaction [facility] Repository (1 source) Tussionex [employer]; Translations: [Tussionex [employer]] Propensity to adverse reactions to drug (disorder) [facility] Repository (20 sources) Tussin Drug allergy [facility] [email or web address] Other (20 sources) HYDROcodone; Translations: [HYDROCODONE] Drug Allergy 10-19-19 [facility] (6 sources) Chlorpheniramine / HYDROcodone; Translations: [TUSSIONEX] Drug Allergy [facility] Repository (11 sources) Acetaminophen / diphenhydrAMINE / Phenylephrine; Translations: [AQZDTGGOF-XE-RURVV MINOPHEN] Drug Allergy 02-04-20 22 [facility] Work Phone: (7 sources) Chlorpheniramine / HYDROcodone Drug Allergy Itching [facility] [employer] (11 sources) Dextromethorphan; Translations: [DEXTROMETHORPHAN HBR] Drug Allergy 10-18-19 Itching [facility]tincan (1 source) carbetapentane Drug Allergy 12-06-19 [facility] Repository Medications Current Medications Medication Drug Class(es) Dates Sig (Normalized) Sig (Original) acetaminophen 500 mg oral tablet (14 sources) Start: 10-27-2021 take 500 mg by mouth every four hours Acetaminophen Active 500 MG PO Q4H 100 October 26, 2021 11:00pm take 1 capsule by mouth every si x hours Acetaminophen 500 MG 1 capsule as needed Orally every 6 hrs Active [id number] 200 actuat albuterol 0.09 mg/actuat metered dose [...] mL nebulizer Indications: COPD with acute exacerbation ([facility]) USE 3 ML VIA NEBULIZER FOUR [...] tablet Indications: Chronic systolic congestive heart failure ([facility]) Take 1 tablet (10 [...] arthropathy, with long-term current use of insulin ([facility]) CHANGE EVERY 2 WEEKS [...] arthropathy, with long-term current use of insulin ([facility]) Inject 15 Units under the skin in the morning and 15 Units at noon and 15 Units in the evening. Inject with meals. 30 mL 1 06/04/2023 Active Start: 03-22-2023 ADMELOG U-100 INSULIN LISPRO 100 unit/mL solution Indications: Type 2 diabetes mellitus with diabetic neuropathic arthropathy, with long-term current use of insulin ([facility]) Inject 15 Units under [...] tablet Indications: Chronic systolic congestive heart failure ([facility]) Take 1 tablet (25 [...] Start: 10-07-2020 take 1 puff(s) by mo [facility] once daily fluticasone furoate-vilanteroL (BREO ELLIPTA) [...] myocardial infarction; Translations: [Atherosclerotic heart disease of [place] coronary artery without angina pectoris] Onset: 11-23-2017 [...] sources) Long-term current use of insulin; Translations: [dredge mate (current) use of insulin] Episodic Other and [...] Onset: 01-18-2021 Episodic Other aftercare (1 source) dredge mate (current) use of aspirin; Translations: [SHELTER CURRENT USE OF ASPIRIN] Onset: 03-02-2021 Episodic Other aftercare (3 sources) dredge mate (current) use of insulin; Translations: [SHELTER CURRENT USE OF INSULIN] Onset: 04-22-2020 Episodic Other aftercare (1 source) Other prison (current) drug therapy; Translations: [OTH DISTRICT CLAIMS MANAGER CURRENT DRUG THERAPY] Onset: 03-02-2021 Episodic [...] Interpretation Reference Range Facility COMPREHENSIVE METABOLIC PANE [facility] 09-13-2023 Albumin [Mass/Vol] 3.4 g/dL Normal 3.2-5.3 [facility] Comment on above: Performed By: #### 3 0934-4 #### [facility] ([id number]) [address] [place] [address] 33762 #### CMP #### [facility] ([id number]) [address], [address] [place] [address] ALP [Catalytic activity/Vol] 72 U/L Normal 39-130 [facility] Comment on above: Performed By: #### 3 0934-4 #### [facility] ([id number]) [address] [place] [address] 44860 #### CMP #### [facility] ([id number]) [address], [address] [place] [address] ALT [Catalytic activity/Vol] 32 U/L Normal 0-40 [facility] Comment on above: Performed By: #### 3 0934-4 #### [facility] ([id number]) [address] [place] [address] 34686 #### CMP #### [facility] ([id number]) [address], [address] [place] [address] Anion gap [Moles/Vol] 10 mmol/L Normal 5-15 [facility] Comment on above: Performed By: #### 3 0934-4 #### [facility] ([id number]) [address] [place] [address] 86131 #### CMP #### [facility] ([id number]) [address], [address] [place] [address] AST [Catalytic activity/Vol] 32 U/L Normal 0-41 [facility] Comment on above: Performed By: #### 3 0934-4 #### [facility] ([id number]) [address] [place] [address] 10278 #### CMP #### [facility] ([id number]) [address], [address] [place] [address] Bilirubin [Mass/Vol] 1.1 mg/dL Normal 0.3-1.2 [facility] Comment on above: Performed By: #### 3 0934-4 #### [facility] ([id number]) [address] [place] [address] 25040 #### CMP #### [facility] ([id number]) [address], [address] [place] [address] Calcium [Mass/Vol] 9.6 mg/dL Normal 8.5-10.5 [facility] Comment on above: Performed By: #### 3 0934-4 #### [facility] ([id number]) [address] [place] [address] 13012 #### CMP #### [facility] ([id number]) [address], [address] [place] [address] Chloride [Moles/Vol] 96 mmol/L Low 98-109 [facility] Comment on above: Performed By: #### 3 0934-4 #### [facility] ([id number]) [address] [place] [address] 28947 #### CMP #### [facility] ([id number]) [address] [place] [address] CO2 [Moles/Vol] 30 mmol/L Normal 22-32 [facility] Comment on above: Performed By: #### 3 0934-4 #### [facility] ([id number]) [address] [place] [address] 63416 #### CMP #### [facility] ([id number]) [address], [address] [place] [address] Creatinine [Mass/Vol] 1.24 mg/dL Normal 0.60-1.30 [facility] Comment on above: Result Comment: METH OD TRACEABLE TO IDMS STANDARD Performed By: #### 3 0934-4 #### [facility] ([id number]) [address] [place] [address] 71179 #### CMP #### [facility] ([id number]) [address], [address] [place] [address] GFR/1.73 sq M.predicted among non-blacks MDRD (S/P/Bld) [Vol rate/Area] 65 mL/min/{1.73_m2} Normal >59 [facility] Comment on above: Result Comment: Reported eGFR is based on the CKD-EPI 2020 equation that does not use a race coefficient. Performed By: #### 3 0934-4 #### [facility] ([id number]) [address] [place] [address] 68098 #### CMP #### [facility] ([id number]) [address], [address] [place] [address] Glucose [Mass/Vol] 154 mg/dL High 65-99 [facility] Comment on above: Performed By: #### 3 0934-4 #### [facility] ([id number]) [address] [place] [address] 25243 #### CMP #### [facility] ([id number]) [address], [address] [place] [address] Potassium [Moles/Vol] 4.4 mmol/L Normal 3.5-5.0 [facility] Comment on above: Performed By: #### 3 0934-4 #### [facility] ([id number]) [address] [place] [address] 69977 #### CMP #### [facility] ([id number]) [address], [address] [place] [address] Protein [Mass/Vol] 7.3 g/dL Normal 6.0-8.0 [facility] Comment on above: Performed By: #### 3 0934-4 #### [facility] ([id number]) [address] [place] [address] 98169 #### CMP #### [facility] ([id number]) [address], [address] [place] [address] Sodium [Moles/Vol] 136 mmol/L Normal 134-146 [facility] Comment on above: Performed By: #### 3 0934-4 #### [facility] ([id number]) [address] [place] [address] 13455 #### CMP #### [facility] ([id number]) [address] [place] [address] Urea nitrogen [Mass/Vol] 37 mg/dL High 5-27 [facility] Comment on above: Performed By: #### 3 0934-4 #### [facility] ([id number]) [address] [place] [address] 56284 #### CMP #### [facility] ([id number]) [address], [address] [place] [address] Natriuretic peptide B [Mass/ Vol]on 09-13-2023 Natriuretic peptide B (Bld) [Mass/Vol] 198 pg/mL High <100.0 [facility] Comment on above: Performed By: #### 3 0934-4 #### [facility] ([id number]) [address] [place] [address] 22892 #### CMP #### [facility] ([id number]) [address], [address] [place] [address] COMPREHENSIVE METABOLIC PANE Ray 08-02-2023 Albumin [Mass/Vol] 4.3 g/dL Normal 3.2-5.3 [facility] Comment on above: Performed By: #### C ALEA, 17739-9, HA1C #### [facility] ([id number]) [address], [address] [place] [address] ALP [Catalytic activity/Vol] 85 U/L Normal 39-130 [facility] Comment on above: Performed By: #### C ALEA, 38636-1, HA1C #### [facility] ([id number]) [address], [address] [place] [address] ALT [Catalytic activity/Vol] 31 U/L Normal 0-40 [facility] Comment on above: Performed By: #### Uzair COSBY, 91038-6, HA1C #### [facility] ([id number]) [address], [address] [place] [address] Anion gap [Moles/Vol] 8 mmol/L Normal 5-15 [facility] Comment on above: Performed By: #### Uzair COSBY, 89457-0, HA1C #### [facility] ([id number]) [address], [address] [place] [address] AST [Catalytic activity/Vol] 29 U/L Normal 0-41 [facility] Comment on above: Performed By: #### Uzair COSBY, 70084-3, HA1C #### [facility] ([id number]) [address], [address] [place] [address] Bilirubin [Mass/Vol] 0.9 mg/dL Normal 0.3-1.2 [facility] Comment on above: Performed By: #### Uzair COSBY, 23041-8, HA1C #### [facility] ([id number]) [address], [address] [place] [address] Calcium [Mass/Vol] 9.7 mg/dL Normal 8.5-10.5 [facility] Comment on above: Performed By: #### Uzair COSBY 26753-7, MARVA1C #### [facility] ([id number]) [address], [address] [place] [address] Chloride [Moles/Vol] 103 mmol/L Normal 98-109 [facility] Comment on above: Performed By: #### Uzair COSBY 49736-9, MARVA1C #### [facility] ([id number]) [address], [address] [place] [address] CO2 [Moles/Vol] 31 mmol/L Normal 22-32 [facility] Comment on above: Performed By: #### Uzair COSBY 91678-8, ALANNAH #### [facility] ([id number]) [address], [address] [place] [address] Creatinine [Mass/Vol] 1.35 mg/dL High 0.60-1.30 [facility] Comment on above: Result Comment: METH OD TRACEABLE TO IDMS STANDARD Performed By: #### Uzair COSBY 11847-4, MARVA1C #### [facility] ([id number]) [address], [address] [place] [address] GFR/1.73 sq M.predicted among non-blacks MDRD (S/P/Bld) [Vol rate/Area] 58 mL/min/{1.73_m2} Low >59 [facility] Comment on above: Result Comment: Reported eGFR is based on the CKD-EPI 2020 equation that does not use a race coefficient. Performed By: #### Uzair COSBY 82313-8, MARVA1C #### [facility] ([id number]) [address], [address] [place] [address] Glucose [Mass/Vol] 135 mg/dL High 65-99 [facility] Comment on above: Performed By: #### Uzair COSBY 02288-1, MARVA1C #### [facility] ([id number]) [address], [address] [place] [address] Potassium [Moles/Vol] 4.3 mmol/L Normal 3.5-5.0 [facility] Comment on above: Performed By: #### Uzair COSBY, 58063-7, MARVA1C #### [facility] ([id number]) [address], [address] [place] [address] Protein [Mass/Vol] 6.9 g/dL Normal 6.0-8.0 [facility] Comment on above: Performed By: #### Uzair COSBY, 03717-5, HA1C #### [facility] ([id number]) [address], [address] [place] [address] Sodium [Moles/Vol] 142 mmol/L Normal 134-146 [facility] Comment on above: Performed By: #### Uzair COSBY, 38810-8, MARVA1C #### [facility] ([id number]) [address], [address] [place] [address] Urea nitrogen [Mass/Vol] 31 mg/dL High 5-27 [facility] Comment on above: Performed By: #### Uzair COSBY, 88345-2, MARVA1C #### [facility] ([id number]) [address], [address] [place] [address] HGB A1C (GLYCO-HGB)on 2023 Glucose [Mass/Vol] 114 mg/dL Normal [facility] Comment on above: Performed By: #### Uzair COSBY, 80759-3, HA1C #### [facility] ([id number]) [address], [address] [place] [address] HbA1c (Bld) [Mass fraction] 5.6 % Normal 4.4-5.6 [facility] Comment on above: Result Comment: NOTE ADA Guidelines Result HgbA1c Normal : less than 5.7 % Prediabetes : 5.7 % to 6.4 % Diabetes : > 6.4 % Use with caution in patients with abnormal hemoglobin variants as the half-life of red blood cells and in vivo glycation rates are affected. Performed By: #### Uzair COSBY, 13896-5, ALANNAH #### [facility] ([id number]) [address], [address] [place] [address] Lipid 1996 panelon 4 Cholesterol [Mass/Vol] 88 mg/dL Low 150-[address] [facility] Comment on above: Performed By: #### Uzair COSBY, 53038-8, ALANNAH #### [facility] ([id number]) [address], [address] [place] [address] Cholesterol in HDL [Mass/Vol] 38 mg/dL Low >39 [facility] Comment on above: Result Comment: HDL <40 mg/dL - High Risk HDL > or = 40mg/dL- Desirable HDL >60 mg/dL - Negative Risk Performed By: #### Uzair COSBY, 77709-9, ALANNAH #### [facility] ([id number]) [address], [address] [place] [address] Cholesterol in LDL [Mass/Vol] 33 mg/dL Normal <130 [facility] Comment on above: Result Comment: LDL <100 mg/dL - Desirable LDL >160 mg/dL - High Risk Performed By: #### Uzair COSBY, 50819-3, ALANNAH #### [facility] ([id number]) [address], [address] [place] [address] Cholesterol in VLDL [Mass/Vol] 17 mg/dL Normal 0-30 [facility] Comment on above: Performed By: #### Uzair COSBY, 38509-7, HA1C #### [facility] ([id number]) [address], [address] [place] [address] CHOLESTEROL:HDL 2.3 Normal 1.0-5.0 [facility] Comment on above: Performed By: #### Uzair COSBY, 72745-4, HA1C #### [facility] ([id number]) [address] [place] [address] Triglyceride [Mass/Vol] 83 mg/dL Normal 27-150 [facility] Comment on above: Performed By: #### Uzair COSBY, 53575-1, MARVA1C #### [facility] ([id number]) [address], [address] [place] [address] MICROALBUMIN - ALBUMIN:CREAT ININE URINE RATIOon 08-02-2023 ALB/CREAT RATIO 400.0 mg/g creat High 0.0-30.0 [facility] Comment on above: Performed By: #### M ALBU #### [facility] ([id number]) [address] [place] [address] Albumin DL <= 20 mg/L (U) [Mass/Vol] 29.5 mg/dL High 0.0-1.9 [facility] Comment on above: Performed By: #### M ALBU #### [facility] ([id number]) [address], [address] [place] [address] URINE CREAT 73.75 mg/dL Normal [facility] Comment on above: Performed By: #### M ALBU #### [facility] ([id number]) [address], [address] [place] [address] Ray 04-19-2023 L Specimen: [id number] Received: 04/20/23 Status: SASHA Matta Num: [id number] Spec Type: Surgical Subm Dr: Salina Lee DPM, MS Tissues: A Bone Fragments - Other than Path Fracture (LT LATERAL MALLEOLUS) Procedures: HE, Gross/Micro L3, Decalcification Age/ Patient Sex Location Account Attending Physician RexAnai Hcek 67/M [facility] [id number] Salina Lee DPM, MS SPEC NUM: [id number] RECD: 04/20/23 STATUS: SASHA PULIDOSandy NUM: [id number] KARIME: 04/19/[address]: Salina Lee DPM, MS ENTERED: 04/20/[address] [facility] [address]: Gin Gimenez SPEC TYPE: Surgical [...] in one cassette labeled A1. CPT Codes 83142, 43850 -------- -------- Specimen: [id number] Received: 04/20/23 Status: SASHA Matta Num: [id number] Spec Type: Surgical Subm Dr: Salina Lee,DPM, MS Tissues: A Bone Fragments - Other than Path Fracture (LT LATERAL MALLEOLUS) Procedures: HE, Gross/Micro L3, Decalcification -------- Patient: Anai Goodman [id number] (Continued) -------- Signed (signature on file) Aniket Krishnamurthy MD 04/23/232202 [facility] POCT EKGon 04-12-[address] [facility] MR ANKLE LT W WO [...] Bennett MD on 04/05/2023 8:50 AM Normal [facility] CBC AND AUTO DIFFon 03-22-20 ABSOLUTE BASOPHIL 0.0 X10E9/L Normal 0.0-0.2 [facility] Comment on above: Performed By: #### C BCA CMP, 47562-0, 308-1 #### [facility] ([id number]) [address], [address] [place] [address] ABSOLUTE NEUTROPHIL 8.3 X10E9/L High 1.5-6.6 [facility] Comment on above: Performed By: #### C BCA, CMP, 67454-5, 3083- #### [facility] ([id number]) [address], [address] [place] [address] Basophils/100 WBC (Bld) 0.3 % Normal [facility] Comment on above: Performed By: #### C BCA, CMP, 03349-0, 308- #### [facility] ([id number]) [address], [address] [place] [address] Eosinophils (Bld) [#/Vol] 0.4 10*3/uL Normal 0.0-0.4 [facility] Comment on above: Performed By: #### C BCA, CMP, 64778-7, 308-1 #### [facility] ([id number]) [address], [address] [place] [address] Eosinophils/100 WBC (Bld) 4.0 % Normal [facility] Comment on above: Performed By: #### C BCA, CMP, 90083-9, 308-1 #### [facility] ([id number]) [address] [place] [address] Erythrocyte distribution width (RBC) [Ratio] 14.5 % Normal 11.5-15.0 [facility] Comment on above: Performed By: #### C JAYDON CMP, 66266-2, 3083-04 #### [facility] ([id number]) [address] [place] [address] Hematocrit (Bld) [Volume fraction] 45.0 % Normal 39-49 [facility] Comment on above: Performed By: #### Uzair INTERIANO CMP, 88725-9, 3083- #### [facility] ([id number]) [address] [place] [address] Hemoglobin (Bld) [Mass/Vol] 15.2 g/dL Normal 13.0-17.0 [facility] Comment on above: Performed By: #### Uziar INTERIANO CMP, , 3083-04 #### [facility] ([id number]) [address] [place] [address] Lymphocytes (Bld) [#/Vol] 0.8 10*3/uL Low 1.0-3.5 [facility] Comment on above: Performed By: #### Uzair INTERIANO CMP, 69573-0, 3083-04 #### [facility] ([id number]) [address] [place] [address] Lymphocytes/100 WBC (Bld) 8.1 % Normal [facility] Comment on above: Performed By: #### Uzair INTERIANO, CMP, 16591-0, 3083- #### [facility] ([id number]) [address] [place] [address] MCH (RBC) [Entitic mass] 30.6 pg Normal 27-34 [facility] Comment on above: Performed By: #### C BCA, CMP, 36682-8, 3083-04 #### [facility] ([id number]) [address], [address] [place] [address] MCHC (RBC) [Mass/Vol] 33.7 g/dL Normal 32-36 [facility] Comment on above: Performed By: #### C BCA, CMP, 23143-8, 3083- #### [facility] [facility] ([id number]) [address], [address] [place] [address] MCV (RBC) [Entitic vol] 91 fL Normal 80-100 P [facility] Comment on above: Performed By: #### C BCA, CMP, 18379-0, 3083-04 #### [facility] ([id number]) [address], [address] [place] [address] Monocytes (Bld) [#/Vol] 0.8 10*3/uL Normal 0-0.9 [facility] Comment on above: Performed By: #### C BCA, CMP, 77300-5, 3083-04 #### [facility] ([id number]) [address], [address] [place] [address] Monocytes/100 WBC (Bld) 7.5 % Normal P [facility] Comment on above: Performed By: #### C BCA, CMP, , 3083- #### [facility] ([id number]) [address], [address] [place] [address] Neutrophils/100 WBC (Bld) 80.1 % Normal [facility] Comment on above: Performed By: #### C BCA, CMP, 45900-4, 3083- #### [facility] ([id number]) [address], [address] [place] [address] Platelet mean volume (Bld) [Entitic vol] 9.0 fL Normal 7-12 [facility] Comment on above: Performed By: #### C BCA, CMP, 08235-0, 308-1 #### [facility] ([id number]) [address], [address] [place] [address] Platelets (Bld) [#/Vol] 205 10*3/uL Normal 150-450 [facility] Comment on above: Performed By: #### C BCA, CMP, 75446-1, 308-1 #### [facility] ([id number]) [address], [address] [place] [address] RBC COUNT 4.95 X10E12/L Normal 4.10-5.70 [facility] Comment on above: Performed By: #### C BCA, CMP, 48801-2, 308- #### [facility] ([id number]) [address], [address] [place] [address] WBC (Bld) [#/Vol] 10.4 10*3/uL Normal 4.0-11.0 [facility] Comment on above: Performed By: #### C BCA, CMP, 76208-2, 3083-1 #### [facility] ([id number]) [address], [address] [place] [address] COMPREHENSIVE METABOLIC PANE Ray 03-22-2023 Albumin [Mass/Vol] 4.3 g/dL Normal 3.2-5.3 [facility] Comment on above: Performed By: #### C BCA, CMP, 10884-0, 3083-1 #### [facility] ([id number]) [address], [address] [place] [address] ALP [Catalytic activity/Vol] 91 U/L Normal 39-130 [facility] Comment on above: Performed By: #### C BCA, CMP, 69310-5, 3084-1 #### [facility] ([id number]) [address], [address] [place] [address] ALT [Catalytic activity/Vol] 36 U/L Normal 0-40 [facility] Comment on above: Performed By: #### C BCA, CMP, 49352-1, 3083- #### [facility] ([id number]) [address] [place] [address] Anion gap [Moles/Vol] 7 mmol/L Normal 5-15 [facility] Comment on above: Performed By: #### C BCA, CMP, 27961-9, 3083- #### [facility] ([id number]) [address], [address] [place] [address] AST [Catalytic activity/Vol] 32 U/L Normal 0-41 [facility] Comment on above: Performed By: #### C BCA, CMP, 24976-2, 3083- #### [facility] ([id number]) [address], [address] [place] [address] Bilirubin [Mass/Vol] 0.8 mg/dL Normal 0.3-1.2 [facility] Comment on above: Performed By: #### C BCA, CMP, 28987-8, 3083- #### [facility] ([id number]) [address], [address] [place] [address] Calcium [Mass/Vol] 10.2 mg/dL Normal 8.5-10.5 [facility] Comment on above: Performed By: #### C BCA, CMP, 05420-8, 3083- #### [facility] ([id number]) [address], [address] [place] [address] Chloride [Moles/Vol] 96 mmol/L Low 98-109 [facility] Comment on above: Performed By: #### C BCA, CMP, 16822-5, 3083-1 #### [facility] ([id number]) [address], [address] [place] [address] CO2 [Moles/Vol] 33 mmol/L High 22-32 [facility] Comment on above: Performed By: #### C BCA, CMP, 79550-1, 308-1 #### [facility] ([id number]) [address], [address] [place] [address] Creatinine [Mass/Vol] 1.61 mg/dL High 0.60-1.30 [facility] Comment on above: Result Comment: METH OD TRACEABLE TO IDMS STANDARD Performed By: #### C JAYDON, CMP, 64764-3, 3083-04 #### [facility] ([id number]) [address], [address] [place] [address] GFR/1.73 sq M.predicted among non-blacks MDRD (S/P/Bld) [Vol rate/Area] 47 mL/min/{1.73_m2} Low >59 [place] [facility] Comment on above: Result Comment: Reported eGFR is based on the CKD-EPI 2020 equation that does not use a race coefficient. Performed By: #### C BCA, CMP, 84503-9, 3083-04 #### [facility] ([id number]) [address], [address] [place] [address] Glucose [Mass/Vol] 77 mg/dL Normal 65-99 [facility] Comment on above: Performed By: #### C JAYDON CMP, 28376-8, 3083-04 #### [facility] ([id number]) [address], [address] [place] [address] Potassium [Moles/Vol] 4.4 mmol/L Normal 3.5-5.0 [facility] Comment on above: Performed By: #### C BCA, CMP, 03328-4, 3083- #### [facility] ([id number]) [address], [address] [place] [address] Protein [Mass/Vol] 7.6 g/dL Normal 6.0-8.0 [facility] Comment on above: Performed By: #### C BCA, CMP, 25699-0, 308-1 #### [facility] ([id number]) [address], [address] [place] [address] Sodium [Moles/Vol] 136 mmol/L Normal 134-146 [facility] Comment on above: Performed By: #### C BCA, CMP, 72358-6, 308-1 #### [facility] ([id number]) [address] [address] [place] [address] Urea nitrogen [Mass/Vol] 37 mg/dL High 5-27 [facility] Comment on above: Performed By: #### C BCA, CMP, 69783-1, 308-1 #### [facility] ([id number]) [address], [facility] [address] [place] [address] HGB A1C (GLYCO-HGB)on 2022 Glucose [Mass/Vol] 143 mg/dL Normal [facility] Comment on above: Performed By: #### C JAYDON, CMP, 16613-8, 3083-1 #### [facility] ([id number]) [address] [place] [address] HbA1c (Bld) [Mass fraction] 6.6 % High 4.4-5.6 [place] [facility] Comment on above: Result Comment: NOTE ADA Guidelines Result HgbA1c Normal : less than 5.7 % Prediabetes : 5.7 % to 6.4 % Diabetes : > 6.4 % Use with caution in patients with abnormal hemoglobin variants as the half-life of red blood cells and in vivo glycation rates are affected. Performed By: #### C BCA, CMP, 06255-3, 3084-1 #### [facility] ([id number]) [address], [address] [place] [address] Lipid 1996 panelon 3 Cholesterol [Mass/Vol] 85 mg/dL Low 150-[address] [facility] Comment on above: Performed By: #### C JAYDON, CMP, 39421-8, 3083-04 #### [facility] ([id number]) [address], [address] [place] [address] Cholesterol in HDL [Mass/Vol] 36 mg/dL Low >39 [place] [facility] Comment on above: Result Comment: HDL <40 mg/dL - High Risk HDL > or = 40mg/dL- Desirable HDL >60 mg/dL - Negative Risk Performed By: #### C JAYDON, CMP, 21393-5, 3083-04 #### [facility] ([id number]) [address], [address] [place] [address] Cholesterol in LDL [Mass/Vol] 34 mg/dL Normal <130 [facility] Comment on above: Result Comment: LDL <100 mg/dL - Desirable LDL >160 mg/dL - High Risk Performed By: #### C JAYDON, CMP, 01127-4, 3083-04 #### [facility] ([id number]) [address], [address] [place] [address] Cholesterol in VLDL [Mass/Vol] 15 mg/dL Normal 0-30 [facility] Comment on above: Performed By: #### Uzair INTERIANO, CMP, 03301-7, 3083- #### [facility] ([id number]) [address], [address] [place] [address] CHOLESTEROL:HDL 2.4 Normal 1.0-5.0 [facility] Comment on above: Performed By: #### Uzair BCA, CMP, 90406-2, 308- #### [facility] ([id number]) [address], [address] [place] [address] Triglyceride [Mass/Vol] 75 mg/dL Normal 27-150 [facility] Comment on above: Performed By: #### C BCA, CMP, 38153-7, 3084-1 #### [facility] ([id number]) [address], [address] [place] [address] URIC ACIDon 03-22-2023 Urate [Mass/Vol] 8.0 mg/dL High 2.6-7.2 [facility] Comment on above: Performed By: #### C BCA, CMP, 85531-9, 30807-01 #### [facility] ([id number]) [address], [address] [place] [address] XR cervical spine 2Von 10-05 XR cervical spine 2V [facility] [address] [place] [address] XRay Report Signed Patient: Anai Goodman MR#: [id number] : 1955 Acct:[id number] Age/Sex: 66 / M ADM Date: 10/05/22 Loc: XD Room: Type: [facility] Attending Dr: Dung Serna MD Copies [...] Jose Sanabria M.D.10/05/2022 12:36 PM Dictation Location: [place] [address] Transcribed By: BLANCA 10/05/22 1236 Dictated By: Jose Sanabria DO 10/05/22 1233 Signed By: 10/05/22 1236 Normal [facility] Basophils Auto (Bld) [#/Vol] Ordered By: Spenser Elaine on 11-29-2021 Basophils (Bld) [#/Vol] 0.0 10*3/uL 0.0-0.2 [facility] Basophils/100 WBC Auto (Bld) Ordered By: Spenser Elaine on 11-29-2021 Basophils/100 WBC (Bld) 0.5 % . [facility] Blood hemoglobin measurement (mass/volume)Ordered By: Spenser Elaine on 11-29-2021 Hemoglobin (Bld) [Mass/Vol] 12.6 g/dL 13.0-17.0 [facility] Blood leukocytes automated c ount (number/volume)Ordered By: Spenser Elaine on 11-29-2021 WBC (Bld) [#/Vol] 6.8 10*3/uL 4.5-11.0 [facility] COVID CepheidOrdered By: Junior Cortes on 11-29-2021 SARS-CoV-2 (COVID-19) Ab IA Ql Negative Negative [facility] Comment on above: This is a duplicate [employer] Xpress CoV-2/Flu/RSV Plus RNA by RT-PCR result to be used for statistical tracking purpose only. SARS-CoV-2 (COVID-19) RNA MEREDITH+probe Ql (Unsp spec) [facility] Creatinine and Glomerular fi ltration rate.predicted panel (S/P/Bld)Ordered By: Spenser Elaine on 11-29-2021 Creatinine [Mass/Vol] 1.38 mg/dL 0.64-1.27 [facility] Eosinophils Auto (Bld) [#/Vo l]Ordered By: Spenser Elaine on 11-29-2021 Eosinophils (Bld) [#/Vol] 0.5 10*3/uL 0.0-0.45 [facility] Eosinophils/100 WBC Auto (Bl d)Ordered By: Spenser Elaine on 11-29-2021 Eosinophils/100 WBC (Bld) 7.5 % . [facility] Erythrocyte distribution wid th Auto (RBC) [Ratio]Ordered By: Spenser Elaine on 11-29-2021 Erythrocyte distribution width (RBC) [Ratio] 15.7 % 12.0-14.8 [facility] Estimated glomerular filtrat ion rate (GFR) non- AmericanOrdered By: Spenser Elaine on 11-29-2021 GFR/1.73 sq M.predicted among non-blacks MDRD (S/P/Bld) [Vol rate/Area] 52 mL/Min [facility] Glucose Glucometer (dC) [M ass/Vol]Ordered By: Reddy Brandt on 11-29-2021 Glucose [Mass/Vol] 141 mg/dL [facility] Comment on above: Random Glucose Refer ence Range is dependent on time and content of last meal. Glucose of more than 200 mg/dL in a nonstressed, ambulatory subject supports the diagnosis of Diabetes Mellitus. Hematocrit Auto (Bld) [Volum e fraction]Ordered By: Spenser Elaine on 11-29-2021 Hematocrit (Bld) [Volume fraction] 38.3 % 38.8-50.0 [facility] - Hematology and Cell countsOrdered By: Spenser Elaine on 11-29-2021 Nucleated RBC/100 WBC (Bld) [Ratio] 0.0 % 0-0.5 [facility] - Microbiology an d Antimicrobial susceptibilityOrdered By: César Cortes on 11-29-2021 SARS-CoV-2 (COVID-19) RNA MEREDITH+probe Ql (Unsp spec) N/A [facility] Lymphocytes Auto (Bld) [#/Vo l]Ordered By: Spenser Elaine on 11-29-2021 Lymphocytes (Bld) [#/Vol] 0.6 10*3/uL 1.00-4.8 [facility] Lymphocytes/100 WBC Auto (Bl d)Ordered By: Spenser Elaine on 11-29-2021 Lymphocytes/100 WBC (Bld) 9.0 % . [facility] MCH Auto (RBC) [Entitic mass ]Ordered By: Spenser Elaine on 11-29-2021 MCH (RBC) [Entitic mass] 27.6 pg 27.5-35.2 [facility] MCHC Auto (RBC) [Mass/Vol]Or dered By: Spenser Elaine on 11-29-2021 MCHC (RBC) [Mass/Vol] 32.8 g/dL 32.5-35.6 [facility] MCV Auto (RBC) [Entitic vol] Ordered By: Spenser Elaine on 11-29-2021 MCV (RBC) [Entitic vol] 84.3 fL 83.5-101 [facility] Monocytes Auto (Bld) [#/Vol] Ordered By: Spenser Elaine on 11-29-2021 Monocytes (Bld) [#/Vol] 0.7 10*3/uL 0.0-0.8 [facility] Monocytes/100 WBC Auto (Bld) Ordered By: Spenser Elaine on 11-29-2021 Monocytes/100 WBC (Bld) 10.9 % . [facility] Neutrophils Auto (Bld) [#/Vo l]Ordered By: Spenser Elaine on 11-29-2021 Neutrophils (Bld) [#/Vol] 4.9 10*3/uL 1.8-7.7 [facility] Neutrophils/100 WBC Auto (Bl d)Ordered By: Spenser Elaine on 11-29-2021 Neutrophils/100 WBC (Bld) 72.1 % . [facility] No Panel InformationOrdered By: Reddy Brandt on 11-29-2021 Bedside Glucose Comment Glu2: cleaned meter [facility] No Panel InformationOrdered By: Spenser Elaine on 11-29-2021 Estimated GFR () > 60 mL/Min [facility] Comment on above: GFR estimated refere nce range: According to KDOQI guidelines, <60 ml/min/1.73m2 is sufficient to diagnose a patient with chronic kidney disease. Pharmacy Creatinine Clearance (Chem 66.84 [facility] Platelet mean volume Auto (B ld) [Entitic vol]Ordered By: Spenser Elaine on 11-29-2021 Platelet mean volume (Bld) [Entitic vol] 9.3 fL 6.6-10.1 [facility] Platelets Auto (Bld) [#/Vol] Ordered By: Spenser Elaine on 11-29-2021 Platelets (Bld) [#/Vol] 142 10*3/uL 150-450 [facility] RBC Auto (Bld) [#/Vol]Ordere d By: Spenser Elaine on 11-29-2021 RBC (Bld) [#/Vol] 4.54 10*6/uL 3.90-5.60 [facility] Serum or plasma anion gap de terminationOrdered By: Spenser Elaine on 11-29-2021 Anion gap [Moles/Vol] 12.0 mmol/L 6.0-15.0 [facility] Serum or plasma calcium sergei urement (mass/volume)Ordered By: Spenser Elaine on 11-29-2021 Calcium [Mass/Vol] 10.0 mg/dL 8.2-10.2 [facility] Serum or plasma chloride zofia surement (moles/volume)Ordered By: Spenser Elaine on 11-29-2021 Chloride [Moles/Vol] 100 mmol/L 95-114 [facility] Serum or plasma glucose sergei urement (mass/volume)Ordered By: Spenser Elaine on 11-29-2021 Glucose [Mass/Vol] 130 mg/dL 70-100 [facility] Comment on above: ADA recommended refe [...] mmol/L 3.5-5.1 [facility] Serum or plasma sodium measu rement (moles/volume)Ordered By: Spenser Chele on 11-29-2021 Sodium [Moles/Vol] 138 mmol/L 136-146 [facility] Serum or plasma total carbon dioxide measurement (moles/volume)Ordered By: Spenser Chele on 11-29-2021 CO2 [Moles/Vol] 30.0 mmol/L 22.0-30.0 [facility] Serum or plasma urea nitroge n measurement (mass/volume)Ordered By: Spenser Elaine on 11-29-2021 Urea nitrogen [Mass/Vol] 22 mg/dL 12-23 [facility] Glucose Glucometer (BldC) [M ass/Vol]Ordered By: Reddy Brandt on 11-03-2021 Glucose [Mass/Vol] 174 mg/dL [facility] Comment on above: Random Glucose Refer ence Range is dependent on time and content of last meal. Glucose of more than 200 mg/dL in a nonstressed, ambulatory subject supports the diagnosis of Diabetes Mellitus. No Panel InformationOrdered By: Reddy Brandt on 11-03-2021 Bedside Glucose Comment Glu2: cleaned meter [facility] COVID-19 Positive/NegativeOr dered By: Reddy Brandt on 11-02-2021 SARS-CoV-2 (COVID-19) N gene MEREDITH+probe Ql (Resp) Negative Negative [facility] Comment on above: Testing for SARS-CoV -2 by RT-PCR This test was developed and its performance characteristics determined by [employer] ([employer]) and validated at the [facility]. This test has not been [...] developed and its performance characteristics determined by [employer] ([employer]) and validated at the [facility]. This test has not been [...] Kaye on 10-27-2021 Glucose [Mass/Vol] 166 mg/dL [facility] Comment on above: Random Glucose Refer ence Range is dependent on time and content of last meal. Glucose of more than 200 mg/dL in a nonstressed, ambulatory subject supports the diagnosis of Diabetes Mellitus. No Panel InformationOrdered By: Ghanshyam Kaye on 10-27-2021 Bedside Glucose Comment Glu2: cleaned meter [facility] Basophils Auto (Bld) [#/Vol] Ordered By: Chante Narayan on 10-25-2021 Basophils (Bld) [#/Vol] 0.0 10*3/uL 0.0-0.2 [facility] Basophils/100 WBC Auto (Bld) Ordered By: Chante Narayan on 10-25-2021 Basophils/100 WBC (Bld) 0.3 % . [facility] Blood hemoglobin measurement (mass/volume)Ordered By: Chante Narayan on 10-25-2021 Hemoglobin (Bld) [Mass/Vol] 11.2 g/dL 13.0-17.0 [facility] Blood leukocytes automated c ount (number/volume)Ordered By: Chante Narayan on 10-25-2021 WBC (Bld) [#/Vol] 5.7 10*3/uL 4.5-11.0 [facility] Creatinine and Glomerular fi ltration rate.predicted panel (S/P/Bld)Ordered By: Chante Narayan on 10-25-2021 Creatinine [Mass/Vol] 1.24 mg/dL 0.64-1.27 [facility] Eosinophils Auto (Bld) [#/Vo l]Ordered By: Chante Narayan on 10-25-2021 Eosinophils (Bld) [#/Vol] 0.4 10*3/uL 0.0-0.45 [facility] Eosinophils/100 WBC Auto (Bl d)Ordered By: Chante Narayan on 10-25-2021 Eosinophils/100 WBC (Bld) 6.7 % . [facility] Erythrocyte distribution wid th Auto (RBC) [Ratio]Ordered By: Chante Narayan on 10-25-2021 Erythrocyte distribution width (RBC) [Ratio] 17.6 % 12.0-14.8 [facility] Estimated glomerular filtrat ion rate (GFR) non- AmericanOrdered By: Chante Narayan on 10-25-2021 GFR/1.73 sq M.predicted among non-blacks MDRD (S/P/Bld) [Vol rate/Area] 59 mL/Min [facility] Hematocrit Auto (Bld) [Volum e fraction]Ordered By: Chante Narayan on 10-25-2021 Hematocrit (Bld) [Volume fraction] 33.0 % 38.8-50.0 [facility] Laboratory - Hematology and Cell countsOrdered By: Chante Narayan on 10-25-2021 Nucleated RBC/100 WBC (Bld) [Ratio] 0.1 % 0-0.5 [facility] Lymphocytes Auto (Bld) [#/Vo l]Ordered By: Chante Narayan on 10-25-2021 Lymphocytes (Bld) [#/Vol] 0.5 10*3/uL 1.00-4.8 [facility] Lymphocytes/100 WBC Auto (Bl d)Ordered By: Chante Narayan on 10-25-2021 Lymphocytes/100 WBC (Bld) 9.4 % . [facility] MCH Auto (RBC) [Entitic mass ]Ordered By: Chante Narayan on 10-25-2021 MCH (RBC) [Entitic mass] 29.3 pg 27.5-35.2 [facility] MCHC Auto (RBC) [Mass/Vol]Or dered By: Chante Narayan on 10-25-2021 MCHC (RBC) [Mass/Vol] 33.8 g/dL 32.5-35.6 [facility] MCV Auto (RBC) [Entitic vol] Ordered By: Chante Narayan on 10-25-2021 MCV (RBC) [Entitic vol] 86.7 fL 83.5-101 [facility] Monocytes Auto (Bld) [#/Vol] Ordered By: Chante Narayan on 10-25-2021 Monocytes (Bld) [#/Vol] 0.8 10*3/uL 0.0-0.8 [facility] Monocytes/100 WBC Auto (Bld) Ordered By: Chante Narayan on 10-25-2021 Monocytes/100 WBC (Bld) 14.5 % . [facility] Neutrophils Auto (Bld) [#/Vo l]Ordered By: Chante Narayan on 10-25-2021 Neutrophils (Bld) [#/Vol] 4.0 10*3/uL 1.8-7.7 [facility] Neutrophils/100 WBC Auto (Bl d)Ordered By: Chante Narayan on 10-25-2021 Neutrophils/100 WBC (Bld) 69.1 % . [facility] No Panel InformationOrdered By: Chante Narayan on 10-25-2021 Estimated GFR () > 60 mL/Min [facility] Comment on above: GFR estimated refere nce range: According to KDOQI guidelines, <60 ml/min/1.73m2 is sufficient to diagnose a patient with chronic kidney disease. Pharmacy Creatinine Clearance (Chem 60.35 [facility] Platelet mean volume Auto (B ld) [Entitic vol]Ordered By: Chante Narayan on 10-25-2021 Platelet mean volume (Bld) [Entitic vol] 8.6 fL 6.6-10.1 [facility] Platelets Auto (Bld) [#/Vol] Ordered By: Chante Narayan on 10-25-2021 Platelets (Bld) [#/Vol] 159 10*3/uL 150-450 [facility] RBC Auto (Bld) [#/Vol]Ordere d By: Chante Narayan on 10-25-2021 RBC (Bld) [#/Vol] 3.81 10*6/uL 3.90-5.60 [facility] Serum or plasma calcium sergei urement (mass/volume)Ordered By: Chante Narayan on 10-25-2021 Calcium [Mass/Vol] 9.1 mg/dL 8.2-10.2 [facility] Serum or plasma chloride zofia surement (moles/volume)Ordered By: Chante Narayan on 10-25-2021 Chloride [Moles/Vol] 102 mmol/L 95-114 [facility] Serum or plasma glucose sergei urement (mass/volume)Ordered By: Chante Narayan on 10-25-2021 Glucose [Mass/Vol] 176 mg/dL 70-100 [facility] Comment on above: ADA recommended refe rence range Random Glucose Reference Range is dependent on time and content of last meal. Glucose of more than 200 mg/dL in a nonstressed, ambulatory subject supports the diagnosis of Diabetes Mellitus. Serum or plasma potassium me asurement (moles/volume)Ordered By: Chante Narayan on 10-25-2021 Potassium [Moles/Vol] 3.6 mmol/L 3.5-5.1 [facility] Serum or plasma sodium measu rement (moles/volume)Ordered By: Chante Narayan on 10-25-2021 Sodium [Moles/Vol] 136 mmol/L 136-146 [facility] Serum or plasma total carbon dioxide measurement (moles/volume)Ordered By: Chante Narayan on 10-25-2021 CO2 [Moles/Vol] 25.8 mmol/L 22.0-30.0 [facility] Serum or plasma urea nitroge n measurement (mass/volume)Ordered By: Chante Narayan on 10-25-2021 Urea nitrogen [Mass/Vol] 32 mg/dL 9-23 [facility] Albumin [Mass/volume] in Ser um or PlasmaOrdered By: Chante Narayan on 10-22-2021 Albumin [Mass/Vol] 3.1 g/dL 3.2-5.5 [facility] Globulin Calc (S) [Mass/Vol] Ordered By: Chante Narayan on 10-22-2021 Globulin (S) [Mass/Vol] 3.0 g/dL [facility] Protein [Mass/volume] in Ser um or PlasmaOrdered By: Chante Narayan on 10-22-2021 Protein [Mass/Vol] 6.1 g/dL 6.1-7.9 [facility] Serum or plasma alanine dasilva otransferase measurement without P-5'-P (enzymatic activiOrdered By: Chante Narayan on 10-22-2021 ALT No additional P-5'-P [Catalytic activity/Vol] 21 U/L 10-60 [facility] Serum or plasma albumin/glob ulin mass ratioOrdered By: Chante Narayan on 10-22-2021 Albumin/Globulin [Mass ratio] 1.0 {ratio} [facility] Serum or plasma alkaline bob sphatase measurement (enzymatic activity/volume)Ordered By: Chante Narayan on 10-22-2021 ALP [Catalytic activity/Vol] 71 U/L 32-92 [facility] Serum or plasma aspartate am inotransferase measurement (enzymatic activity/volume)Ordered By: Chante Narayan on 10-22-2021 AST [Catalytic activity/Vol] 23 U/L 10-42 [facility] Serum or plasma prealbumin m easurement (mass/volume)Ordered By: Chante Narayan on 10-22-2021 Prealbumin [Mass/Vol] 19.4 mg/dL 18.0-38.0 [facility] Serum or plasma total biliru bin measurement (mass/volume)Ordered By: Chante Narayan on 10-22-2021 Bilirubin [Mass/Vol] 1.0 mg/dL 0.3-1.2 [facility] Bacteria identified Anaer cx Nom (Unsp spec)Ordered By: Reddy Brandt on 10-21-2021 Anaerobic microbial culture No Anaerobes Isolated 3 Days [facility] COVID-19 Positive/NegativeOr dered By: Reddy Brandt on 10-21-2021 SARS-CoV-2 (COVID-19) N gene MEREDITH+probe Ql (Resp) Negative Negative [facility] Comment on above: Testing for SARS-CoV -2 by RT-PCR This test was developed and its performance characteristics determined by [employer] ([employer]) and validated at the [facility]. This test has not been [...] Brandt on 10-21-2021 Glucose [Mass/Vol] 298 mg/dL [facility] Comment on above: Random Glucose Refer ence Range is dependent on time and content of last meal. Glucose of more than 200 mg/dL in a nonstressed, ambulatory subject supports the diagnosis of Diabetes Mellitus. No Panel InformationOrdered By: Reddy Brandt on 10-21-2021 Bedside Glucose Comment Glu2: cleaned meter [facility] Bedside Glucose #2 Comment Cleaned meter [facility] ABO and Rh group post transf usion reaction Nom (Bld)Ordered By: Reddy Brandt on 10-19-2021 Microscopic observation Gram stain Nom (Unsp spec) [facility] COVID-19 Positive/NegativeOr dered By: Reddy Brandt on 10-14-2021 SARS-CoV-2 (COVID-19) N gene MEREDITH+probe Ql (Resp) Negative Negative [facility] Comment on above: Testing for SARS-CoV -2 by RT-PCR This test was developed and its performance characteristics determined by [employer] ([employer]) and validated at the [facility]. This test has not been [...] 10-06-2021 Basophils (Bld) [#/Vol] 0.0 10*3/uL 0.0-0.2 [facility] Basophils/100 WBC Auto (Bld) Ordered By: Reddy Brandt on 10-06-2021 Basophils/100 WBC (Bld) 0.6 % . [facility] Blood hemoglobin measurement (mass/volume)Ordered By: Reddy Brandt on 10-06-2021 Hemoglobin (Bld) [Mass/Vol] 13.7 g/dL 13.0-17.0 [facility] Blood leukocytes automated c ount (number/volume)Ordered By: Reddy Brandt on 10-06-2021 WBC (Bld) [#/Vol] 7.8 10*3/uL 4.5-11.0 [facility] Creatinine and Glomerular fi ltration rate.predicted panel (S/P/Bld)Ordered By: Reddy Brandt on 10-06-2021 Creatinine [Mass/Vol] 1.76 mg/dL 0.64-1.27 [facility] Eosinophils Auto (Bld) [#/Vo l]Ordered By: Reddy Brandt on 10-06-2021 Eosinophils (Bld) [#/Vol] 0.4 10*3/uL 0.0-0.45 [facility] Eosinophils/100 WBC Auto (Bl d)Ordered By: Reddy Brandt on 10-06-2021 Eosinophils/100 WBC (Bld) 4.9 % . [facility] Erythrocyte distribution wid th Auto (RBC) [Ratio]Ordered By: Reddy Brandt on 10-06-2021 Erythrocyte distribution width (RBC) [Ratio] 18.8 % 12.0-14.8 [facility] Erythrocyte sedimentation ra te by Photometric methodOrdered By: Reddy Brandt on 10-06-2021 ESR Photometric method (Bld) [Velocity] 21 mm/hr 0-19 [facility] Estimated glomerular filtrat ion rate (GFR) non- AmericanOrdered By: Reddy Brandt on 10-06-2021 GFR/1.73 sq M.predicted among non-blacks MDRD (S/P/Bld) [Vol rate/Area] 39 mL/Min [facility] Glucose mean value [Mass/vol ume] in Blood Estimated from glycated hemoglobinOrdered By: Reddy Brandt on 10-06-2021 Average glucose Estimated from glycated hemoglobin (Bld) [Mass/Vol] 163 mg/dL [facility] Hematocrit Auto (Bld) [Volum e fraction]Ordered By: Reddy Brandt on 10-06-2021 Hematocrit (Bld) [Volume fraction] 41.1 % 38.8-50.0 [facility] Hemoglobin A1c percentageOrd ered By: Reddy Brandt on 10-06-2021 HbA1c (Bld) [Mass fraction] 7.3 % 4.3-5.6 [facility] Comment on above: Increased risk for d iabetes: 5.7 - 6.4 diabetes: >6.4 glycemic control for adults with diabetes: <7.0 Laboratory - Hematology and Cell countsOrdered By: Reddy Brandt on 10-06-2021 Nucleated RBC/100 WBC (Bld) [Ratio] 0.0 % 0-0.5 [facility] Lymphocytes Auto (Bld) [#/Vo l]Ordered By: Reddy Brandt on 10-06-2021 Lymphocytes (Bld) [#/Vol] 0.8 10*3/uL 1.00-4.8 [facility] Lymphocytes/100 WBC Auto (Bl d)Ordered By: Reddy Brandt on 10-06-2021 Lymphocytes/100 WBC (Bld) 10.9 % . [facility] MCH Auto (RBC) [Entitic mass ]Ordered By: Reddy Brandt on 10-06-2021 MCH (RBC) [Entitic mass] 28.8 pg 27.5-35.2 [facility] MCHC Auto (RBC) [Mass/Vol]Or dered By: Reddy Brandt on 10-06-2021 MCHC (RBC) [Mass/Vol] 33.3 g/dL 32.5-35.6 [facility] MCV Auto (RBC) [Entitic vol] Ordered By: Reddy Brandt on 10-06-2021 MCV (RBC) [Entitic vol] 86.3 fL 83.5-101 [facility] Monocytes Auto (Bld) [#/Vol] Ordered By: Reddy Brandt on 10-06-2021 Monocytes (Bld) [#/Vol] 0.9 10*3/uL 0.0-0.8 [facility] Monocytes/100 WBC Auto (Bld) Ordered By: Reddy Brandt on 10-06-2021 Monocytes/100 WBC (Bld) 11.8 % . [facility] Neutrophils Auto (Bld) [#/Vo l]Ordered By: Reddy Brandt on 10-06-2021 Neutrophils (Bld) [#/Vol] 5.6 10*3/uL 1.8-7.7 [facility] Neutrophils/100 WBC Auto (Bl d)Ordered By: Reddy Brandt on 10-06-2021 Neutrophils/100 WBC (Bld) 71.8 % . [facility] No Panel InformationOrdered By: Reddy Brandt on 10-06-2021 Estimated GFR () 48 mL/Min [facility] Comment on above: GFR estimated refere nce range: According to KDOQI guidelines, <60 ml/min/1.73m2 is sufficient to diagnose a patient with chronic kidney disease. Pharmacy Creatinine Clearance (Chem N/A [facility] Platelet mean volume Auto (B ld) [Entitic vol]Ordered By: Reddy Brandt on 10-06-2021 Platelet mean volume (Bld) [Entitic vol] 9.1 fL 6.6-10.1 [facility] Platelets Auto (Bld) [#/Vol] Ordered By: Reddy Brandt on 10-06-2021 Platelets (Bld) [#/Vol] 131 10*3/uL 150-450 [facility] RBC Auto (Bld) [#/Vol]Ordere d By: Reddy Brandt on 10-06-2021 RBC (Bld) [#/Vol] 4.77 10*6/uL 3.90-5.60 [facility] Serum or plasma C reactive p rotein measurement (mass/volume)Ordered By: Reddy Brandt on 10-06-2021 CRP [Mass/Vol] 0.5 mg/dL 0.0-1.0 [facility] Serum or plasma chloride zofia surement (moles/volume)Ordered By: Reddy Brandt on 10-06-2021 Chloride [Moles/Vol] 93 mmol/L 95-114 [facility] Serum or plasma potassium me asurement (moles/volume)Ordered By: Reddy Brandt on 10-06-2021 Potassium [Moles/Vol] 3.8 mmol/L 3.5-5.1 [facility] Serum or plasma sodium measu rement (moles/volume)Ordered By: Reddy Brandt on 10-06-2021 Sodium [Moles/Vol] 139 mmol/L 136-146 [facility] Serum or plasma total carbon dioxide measurement (moles/volume)Ordered By: Reddy Brandt on 10-06-2021 CO2 [Moles/Vol] 31.4 mmol/L 22.0-30.0 [facility] Serum or plasma urea nitroge n measurement (mass/volume)Ordered By: Reddy Brandt on 10-06-2021 Urea nitrogen [Mass/Vol] 52 mg/dL 9-23 [facility] WOUND CULTUREon 09-12-2021 Bacteria identified Aer cx Nom (Unsp spec) Final report Normal [facility] Comment on above: Performed By: #### C XWND ####[facility] [address] [place] [address]Dr. Anjali Reagan Result 1 Mixed skin areli Normal [facility] Comment on above: Performed By: #### C XWND ####[facility] [address] [place] [address]Dr. Anjali Reagan CBC AUTO DIFFon 09-09-2021 BASO # 0.0 103/ul Normal 0.0-0.1 [facility] Comment on above: Performed By: #### C BC ####[facility] [address] [place], [place] [address]Dr. Anjali Reagan Basophils/100 WBC (Bld) 0.6 % Normal 0.2-2.0 [facility] Comment on above: Performed By: #### C BC ####[facility] [address] [place], [place] [address]Dr. Anjali Reagan EO # 0.3 103/ul Normal 0.0-0.7 [facility] Comment on above: Performed By: #### C BC ####[facility] D[address]pf[address]zd[address] [place], [place] [address]Dr. Anjali Reagan Eosinophils/100 WBC (Bld) 4.1 % Normal 0.9-7.0 [facility] Comment on above: Performed By: #### C BC ####[facility] W[address]ptghbjx[address] [place], [place] [address]Dr. Anjali Reagan Erythrocyte distribution width (RBC) [Ratio] 16.1 % Critically high 11.0-15.0 [facility] Comment on above: Performed By: #### C BC ####[facility] [address]jaris[address] [place], [place] [address]Dr. Anjali Reagan Hematocrit (Bld) [Volume fraction] 38.3 % Critically low 42.0-54.0 [facility] Comment on above: Performed By: #### C BC ####[facility] Zxcqlxncie[address] [place], [place] [address]Dr. Anjali Reagan Hemoglobin (Bld) [Mass/Vol] 12.0 g/dL Critically low 14.0-18.0 [facility] Comment on above: Performed By: #### C BC ####[facility] [address] [place] [address]Dr. Anjali Reagan IG # 0.04 10e3/ul Critically high 0.00-0.03 [facility] Comment on above: Performed By: #### C BC ####[facility] Qqgcspqgsj[address] [place] [address]Dr. Anjali Reagan IG % 0.6 % Critically high 0.0-0.5 [facility] [place] [facility] Comment on above: Performed By: #### C BC ####[facility] [address]ods[address] [place] [address]Dr. Biancaramona Tez LYMPH # 0.9 103/ul Critically low 1.2-3.8 [facility] Comment on above: Performed By: #### C BC ####[facility] [address]zedvfug[address] [place] [address]Dr. Anjali Reagan Lymphocytes/100 WBC (Bld) 12.6 % Critically low 20.5-60.0 [facility] Comment on above: Performed By: #### C BC ####[facility] [address]zaigsbg[address] [place] [address]Dr. Biancaramona Reagan MANUAL DIFF REQ NO Normal [facility] Comment on above: Performed By: #### C BC ####[facility] Qeoifofxhj[address] [place] [address]Dr. Anjali Reagan MCH (RBC) [Entitic mass] 27.5 pg Normal 25.9-34.0 [facility] Comment on above: Performed By: #### C BC ####[facility] Vosmpdzzfk[address] [place] [address]Dr. Anjali Tez MCHC (RBC) [Mass/Vol] 31.3 g/dL Normal 29.9-35.2 [facility] Comment on above: Performed By: #### C BC ####[facility] [address] [place], [place] [address]Dr. Anjali Tez MCV (RBC) [Entitic vol] 87.6 fL Normal 80.0-94.0 [facility] Comment on above: Performed By: #### C BC ####[facility] [address] [place] [id number]. Anjali Reagan MONO # 0.7 103/ul Normal 0.3-0.8 [facility] Comment on above: Performed By: #### C BC ####[facility] [address]fwg[address] [place] [id number]. Anjali Reagan Monocytes/100 WBC (Bld) 10.3 % Normal 1.7-12.0 [facility] Comment on above: Performed By: #### C BC ####[facility] [address]ufziei[address] [place] [id number]. Anjali Reagan NEUT # 5.1 103/ul Normal 1.4-6.5 [facility] Comment on above: Performed By: #### C BC ####[facility] X[address]kwxlhv[address] [place] [id number]. Anjali Reagan Neutrophils/100 WBC (Bld) 71.8 % Normal 43.0-75.0 [facility] Comment on above: Performed By: #### C BC ####[facility] [address]cl[address]lm[address] [place] [phone]. Anjali Reagan Platelet mean volume (Bld) [Entitic vol] 9.4 fL Critically low 9.5-13.5 [facility] Comment on above: Performed By: #### C BC ####[facility] [address]po[address] [place] [id number]. Anjali Reagan PLT 249 103/ul Normal 150-450 [facility] Comment on above: Performed By: #### C BC ####[facility] Yfqmqysjor[address] [place] [phone]. Anjali Reagan RBC 4.37 106/ul Critically low 4.70-6.10 [facility] [place] [facility] Comment on above: Performed By: #### C BC ####[facility] T[address]ulemja[address] [place] [id number]. Anjali Reagan WBC 7.1 103/ul Normal 4.0-11.0 [facility] Comment on above: Performed By: #### C BC ####[facility] Yrzlgnofgb35[address] [place] [phone]. Anjali Reagan CRPon 09-09-2021 CRP 1.9 mg/dL Critically high <=1.0 [facility] [place] [facility] Comment on above: Performed By: #### C RP, CMP ####[facility] [address]wpawsdi[address] [place] [address]Dr. Anjali Reagan GRAM STAINon 09-09-2021 COMMENTS NO ORGANISMS OBSERVED Normal [facility] Comment on above: Performed By: #### G STAIN ####[facility] T[address]wvtpwfj[address] [place] [address]Dr. Anjali Reagan DIPHTHEROIDS Normal [facility] Comment on above: Performed By: #### G STAIN ####[facility] [address] [place], [place] [address]Dr. Anjali Reagan EPITHELIALS Normal [facility] Comment on above: Performed By: #### G STAIN ####[facility] [address]vlyzjpksg[address] [place], [place] [address]Dr. Anjali Reagan FUNGAL ELEMENTS Normal [facility] [place] [facility] Comment on above: Performed By: #### G STAIN ####[facility] L[address] [place], [place] [address]Dr. Anjali Reagan GRAM NEG BACILLI Normal [facility] Comment on above: Performed By: #### G STAIN ####[facility] [address]ax[address] [place], [place] [address]Dr. Anjali Reagan GRAM NEG DIPPLOCOCCI Normal [facility] Comment on above: Performed By: #### G STAIN ####[facility] Sizrtpjjor[address] [place], [place] [address]Dr. Anjali Reagan GRAM POS BACILLI Normal [facility] Comment on above: Performed By: #### G STAIN ####[facility] [address]abu[address] [place] [address]Dr. Anjali Reagan GRAM POSITIVE COCCI Normal [facility] Comment on above: Performed By: #### G STAIN ####[facility] [address]we[address]hpv[address] [place], [place] [address]Dr. Anjali Reagan GRAM STAIN SOURCE Left foot lateral Normal [facility] Comment on above: Performed By: #### G STAIN ####[facility] [address]ktigrl[address] [place] [address]Dr. Anjali Reagan GS_DIPTH Normal [facility] Comment on above: Performed By: #### G STAIN ####[facility] Wfs[address]wcmbuv[address] [place] [address]Dr. Anjali Reagan WBC RARE Normal [facility] Comment on above: Performed By: #### G STAIN ####[facility] Ahxcughorg39[address] [place] [address]Dr. Anjali Reagan PROF 14(COMP METB)on 022 Albumin [Mass/Vol] 3.5 g/dL Normal 3.4-5.0 [facility] Comment on above: Performed By: #### C RP, CMP ####[facility] G[address]vxve[address]wx[address] [place], [place] [address]Dr. Anjali Reagan Albumin/Globulin [Mass ratio] 0.8 {ratio} Normal [facility] Comment on above: Performed By: #### C RP, CMP ####[facility] [address]pejhgmasu[address] [place], [place] [address]Dr. Anjali Reagan ALP [Catalytic activity/Vol] 136 U/L Critically high 46-116 [facility] Comment on above: Performed By: #### C RP, CMP ####[facility] [address]qszndddjy[address] [place] [address]Dr. Anjali Reagan ALT [Catalytic activity/Vol] 34 U/L Normal 16-63 [facility] Comment on above: Performed By: #### C RP, CMP ####[facility] Tnxqtxljly34[address] [place] [address]Dr. Anjali Reagan Anion gap [Moles/Vol] 12.9 mmol/L Normal [facility] Comment on above: Performed By: #### C RP, CMP ####[facility] Jxsrztrrvm[address] [place], [place] [address]Dr. Anjali Reagan AST [Catalytic activity/Vol] 27 U/L Normal 15-37 [facility] Comment on above: Performed By: #### C RP, CMP ####[facility] Ivktejekzc[address] [place], [place] [address]Dr. Anjali Reagan Bilirubin [Mass/Vol] 0.4 mg/dL Normal 0.2-1.0 [facility] Comment on above: Performed By: #### C RP, CMP ####[facility] Nnsgrhyyhf[address] [place], [place] [address]Dr. Anjali Reagan Calcium [Mass/Vol] 9.7 mg/dL Normal 8.5-10.1 [facility] Comment on above: Performed By: #### C RP, CMP ####[facility] Eafgxyehau[address] [place], [place] [address]Dr. Anjali Reagan Chloride [Moles/Vol] 103 mmol/L Normal 98-107 [facility] Comment on above: Performed By: #### C RP, CMP ####[facility] Gxhybicisq[address] [place], [place] [address]Dr. Anjali Reagan CO2 [Moles/Vol] 28.9 mmol/L Normal 21.0-32.0 [facility] Comment on above: Performed By: #### C RP, CMP ####[facility] Evvdcwexdu[address] [place], [place] [address]Dr. Anjali Reagan Creatinine [Mass/Vol] 1.57 mg/dL Critically high 0.70-1.30 [facility] Comment on above: Performed By: #### C RP, CMP ####[facility] K[address]jmwgrrc[address] [place], [place] [address]Dr. Anjali Reagan EGFR-AF MALTESE 54 mL/min/1.73m2 Critically low >=60 [facility] Comment on above: Performed By: #### C RP, CMP ####[facility] Z[address] [place], [place] [address]Dr. Anjali Reagan EGFR-NON AF MALTESE 45 mL/min/1.73m2 Critically low >=60 [facility] Comment on above: Performed By: #### C RP, CMP ####[facility] Sujh[address]pnj[address] [place], [place] [address]Dr. Anjali Reagan Globulin (S) [Mass/Vol] 4.5 g/dL Normal [facility] Comment on above: Performed By: #### C RP, CMP ####[facility] L[address]czmei[address] [place] [id number]. Anjali Reagan Glucose [Mass/Vol] 174 mg/dL Critically high 74-106 [facility] Comment on above: Performed By: #### C RP, CMP ####[facility] Y[address]jpbzvdd[address] [place] [phone]. Anjali Reagan Potassium [Moles/Vol] 4.8 mmol/L Normal 3.5-5.1 [facility] Comment on above: Performed By: #### C RP, CMP ####[facility] [address]vh[address]it[address] [place] [phone]. Anjali Reagan Protein [Mass/Vol] 8.0 g/dL Normal 6.4-8.2 [facility] Comment on above: Performed By: #### C RP, CMP ####[facility] [address]ndpvru[address] [place] [address]Dr. Anjali Reagan Sodium [Moles/Vol] 140 mmol/L Normal 136-145 [facility] Comment on above: Performed By: #### C RP, CMP ####[facility] [address]zsje[address] [place] [address]Dr. Anjali Reagan Urea nitrogen [Mass/Vol] 34.0 mg/dL Critically high 7.0-18 .0 [facility] Comment on above: Performed By: #### C RP, CMP ####[facility] Xwnrsliuup[address] [place], [place] [address]Dr. Anjali Reagan Urea nitrogen/Creatinine [Mass ratio] 21.7 mg/mg [facility] Comment on above: Performed By: #### C RP, CMP ####[facility] [address]ctdmfz[address] [place] [address]Dr. Anjali Reagan XR FOOT RT MIN 3 VIEWSon XR FOOT RT MIN [address] [facility] XR ANKLE RT MIN 3 VIEWSon XR ANKLE RT MIN 3 VIEWS Normal [facility] CULTURE BLOODon 08-26-2021 Microscopic examination of blood, culture Culture Observations: NO GROWTH AT 5 DAYS. Normal [facility] Comment on above: Performed By: #### B LDCX2 ####[facility] Fcqmfkarcv[address] [place], [place] [address]Dr. Anjali Reagan Microscopic examination of blood, culture Culture Observations: NO GROWTH AT 5 DAYS. Normal [facility] Comment on above: Performed By: #### B LDCX1 ####[facility] [address]uz[address]fcwvc[address] [place], [place] [address]Dr. Anjali Reagan PREALBUMINon 08-26-2021 Prealbumin [Mass/Vol] 14 mg/dL Normal 10-36 [facility] Comment on above: Performed By: #### P REALBL ####[facility] [address]xf[address]uvsz[address] [place], [place] [address]Dr. Anjali Reagan CBC W MANUAL DIFFon 08-25-19 ANISOCYTOSIS SLIGHT Normal [facility] Comment on above: Performed By: #### C CORI ####[facility] [address]bskbzznsd[address] [place], [place] [address]Dr. Anjali Reagan ATYPICAL LYMPH # Normal [facility] Comment on above: Performed By: #### C CORI ####[facility] [address]unw[address]rq[address] [place], [place] [address]Dr. Anjali Reagan ATYPICAL LYMPH % Normal [facility] Comment on above: Performed By: #### C CORI ####[facility] [address]foywcyy[address] [place], [place] [address]Dr. Anjali Reagan BAND # Normal 0.0-0.3 [facility] Comment on above: Performed By: #### C CORI ####[facility] Xxojdxmcmn[address] [place], [place] [address]Dr. Anjali Reagan BAND % Normal 0-5 [facility] Comment on above: Performed By: #### C CORI ####[facility] [address]zmaltgsi[address] [place], [place] [address]Dr. Anjali Reagan BASOM # 0.00 103/ul Normal 0.00-0.10 [facility] Comment on above: Performed By: #### C CORI ####[facility] [address]btfozcvp[address] [place], [place] [address]Dr. Anjali Reagan BASOM % 0.0 % Critically low 0.2-2.0 [facility] Comment on above: Performed By: #### C CORI ####[facility] [address]xfdunv[address] [place] [address]Dr. Anjali Reagan BLAST # Normal [facility] Comment on above: Performed By: #### C CORI ####[facility] [address]jth[address] [place] [id number]. Anjali Reagan BLAST % Normal [facility] Comment on above: Performed By: #### C CORI ####[facility] [address]nuiks[address] [place] [address]Dr. Anjali Reagan CORRECTED WBC Normal 4.0-11.0 [facility] Comment on above: Performed By: #### C CORI ####[facility] Lmt[address]oyywg[address] [place] [address]Dr. Anjali Reagan EOS # 0.34 103/ul Normal 0.00-0.70 [facility] Comment on above: Performed By: #### C CORI ####[facility] [address]xpzs[address] [place], [place] [address]Dr. Anjali Reagan EOS% 3.0 % Normal 0.9-7.0 [facility] Comment on above: Performed By: #### C CORI ####[facility] Ivkhggzzrn[address] [place] [address]Dr. Anjali Reagan HCT 36.2 % Critically low 42.0-54.0 [facility] Comment on above: Performed By: #### C CORI ####[facility] [address]vs[address]az[address] [place] [address]Dr. Anjali Reagan HGB 11.8 g/dl Critically low 14.0-18.0 [facility] Comment on above: Performed By: #### C CORI ####[facility] [address]jmpiy[address] [place], [place] [address]Dr. Anjali Reagan LYMPHM # 1.03 103/ul Critically low 1.20-3.80 [facility] [place] [facility] Comment on above: Performed By: #### C CORI ####[facility] Ysyvuytxrj[address] [place] [id number]. Anjali Reagan LYMPHM% 9.0 % Critically low 20.5-60.0 [facility] Comment on above: Performed By: #### C CORI ####[facility] Fbjpiitvsx[address] [place] [id number]. Anjali Reagan MCH 28.0 pg Normal 25.9-34.0 [facility] Comment on above: Performed By: #### C CORI ####[facility] [address]heqioi[address] [place] [id number]. Anjali Reagan MCHC 32.6 g/dl Normal 29.9-35.2 [facility] Comment on above: Performed By: #### C CORI ####[facility] Mpvzhkggso[address] [place] [address]Dr. Anjali Reagan MCV 85.8 fL Normal 80.0-94.0 [facility] Comment on above: Performed By: #### C CORI ####[facility] [address] [place], [place] [address]Dr. Anjali Reagan METAMYELOCYTE # Normal [facility] [place] [facility] Comment on above: Performed By: #### C CORI ####[facility] [address] [place], [place] [address]Dr. Anjali Reagan METAMYELOCYTE % Normal [facility] [place] [facility] Comment on above: Performed By: #### C CORI ####[facility] [address]izce[address] [place] [address]Dr. Anjali Reagan MONOM# 1.61 103/ul Critically high 0.30-0.80 [facility] Comment on above: Performed By: #### C CORI ####[facility] [address]arjlpofx[address] [place] [id number]. Anjali Reagan MONOM% 14.0 % Critically high 1.7-12.0 [facility] [place] [facility] Comment on above: Performed By: #### C CORI ####[facility] Xf[address]igkiove[address] [place] [phone]. Anjali Reagan MPV 8.9 fL Critically low 9.5-13.5 [facility] Comment on above: Performed By: #### C BCFIONA ####[facility] [address] [place], [place] [address]Au. Anjali Reagan MYELOCYTE # Normal [facility] Comment on above: Performed By: #### C BCFIONA ####[facility] [address]lrwsrfyec[address] [place], [place] [address]Ow. Anjali Reagan MYELOCYTE % Normal [facility] Comment on above: Performed By: #### C BCFINOA ####[facility] Sknczgvdcr2014 [place], [place] [address]Os. Anjali Reagan NRBC Normal [facility] Comment on above: Performed By: #### C CORI ####[facility] Ymluzdkfpj4601 [place] [id number]. Anjali Reagan PLT 263 103/ul Normal 150-450 [facility] Comment on above: Performed By: #### C CORI ####[facility] Cbrlcjavtm0575 [place] [id number]. Anjali Reagan RBC 4.22 106/ul Critically low 4.70-6.10 [facility] Comment on above: Performed By: #### C CORI ####[facility] Kxoxszibnb0512 [place] [id number]. Anjali Reagan RDW 16.0 % Critically high 11.0-15.0 [facility] Comment on above: Performed By: #### C CORI ####[facility] Xnkyivarlw3878 [place] [id number]. Anjali Reagan SEG # 8.51 103/ul Critically high 1.40-6.50 [facility] Comment on above: Performed By: #### C BCFIONA ####[facility] Lwnmnyhful4502 [place] [id number]. Anjali Reagan SEG % 74.0 % Normal 43.0-75.0 [facility] Comment on above: Performed By: #### C BCFIONA ####[facility] Xeazafkumh0104 [place], [place] [address]Dp. Anjali Reagan WBC 11.5 103/ul Critically high 4.0-11.0 [facility] Comment on above: Performed By: #### C BCMAN ####[facility] Wbxxfvjrlr0242 [place] [address]Dr. Anjali Reagan CRPon 08-24-2021 CRP 11.6 mg/dL Critically high <=1.0 [facility] Comment on above: Performed By: #### C RP, CMP ####[facility] Gpmwjqvfsm7707 [place] [address]Dr. Anjali Reagan PROF 14(COMP METB)on 022 Albumin [Mass/Vol] 3.2 g/dL Critically low 3.4-5.[address] [facility] Comment on above: Performed By: #### C RP, CMP ####[facility] Orjurjustb[address] [place], [place] [address]Dr. Anjali Reagan Albumin/Globulin [Mass ratio] 0.7 {ratio} Normal [facility] Comment on above: Performed By: #### C RP, CMP ####[facility] Ypkotjajqm[address] [place], [place] [address]Dr. Anjali Reagan ALP [Catalytic activity/Vol] 107 U/L Normal 46-116 [facility] Comment on above: Performed By: #### C RP, CMP ####[facility] Dsgysigkic[address] [place], [place] [address]Dr. Anjali Reagan ALT [Catalytic activity/Vol] 57 U/L Normal 16-63 [facility] Comment on above: Performed By: #### C RP, CMP ####[facility] Ajcyaqtlma[address] [place], [place] [address]Dr. Anjali Reagan Anion gap [Moles/Vol] 13.7 mmol/L Normal [facility] Comment on above: Performed By: #### C RP, CMP ####[facility] Cofafbiyfo6[address] [place], [place] [address]Dr. Anjali Reagan AST [Catalytic activity/Vol] 40 U/L Critically high 15-37 [facility] Comment on above: Performed By: #### C RP, CMP ####[facility] Grwjpeicgr[address] [place], [place] [address]Dr. Anjali Reagan Bilirubin [Mass/Vol] 0.6 mg/dL Normal 0.2-1.0 [facility] Comment on above: Performed By: #### C RP, CMP ####[facility] Dmwbjizncn[address] [place], [place] [address]Dr. Anjali Reagan Calcium [Mass/Vol] 9.7 mg/dL Normal 8.5-10.1 [facility] Comment on above: Performed By: #### C RP, CMP ####[facility] Liypxwnaln93[address] [place], [place] [address]Dr. Anjali Reagan Chloride [Moles/Vol] 98 mmol/L Normal 98-107 [facility] Comment on above: Performed By: #### C RP, CMP ####[facility] Yuylwphebl[address] [place], [place] [address]Dr. Anjali Reagan CO2 [Moles/Vol] 30.0 mmol/L Normal 21.0-32.0 [facility] Comment on above: Performed By: #### C RP, CMP ####[facility] Qbyaeuklps[address] [place], [place] [address]Dr. Anjali Reagan Creatinine [Mass/Vol] 1.73 mg/dL Critically high 0.70-1.30 [facility] Comment on above: Performed By: #### C RP, CMP ####[facility] Lctqskicte[address] [place], [place] [address]Dr. Anjali Reagan EGFR-AF MALTESE 49 mL/min/1.73m2 Critically low >=60 [facility] Comment on above: Performed By: #### C RP, CMP ####[facility] Wseewdcrwg5[address] [place], [place] [address]Dr. Anjali Reagan EGFR-NON AF MALTESE 40 mL/min/1.73m2 Critically low >=60 [facility] Comment on above: Performed By: #### C RP, CMP ####[facility] Afgfzrptfa22[address] [place], [place] [address]Dr. Anjali Reagan Globulin (S) [Mass/Vol] 4.7 g/dL Normal [facility] Comment on above: Performed By: #### C RP, CMP ####[facility] Zwowfhvpsk0228 [place] [address]Dr. Anjali Reagan Glucose [Mass/Vol] 92 mg/dL Normal 74-106 [facility] Comment on above: Performed By: #### C RP, CMP ####[facility] Yrzsmzvsdp3554 [place] [address]Dr. Anjali Reagan Potassium [Moles/Vol] 3.7 mmol/L Normal 3.5-5.1 [facility] Comment on above: Performed By: #### C RP, CMP ####[facility] Vifxelcqtc2391 [place] [address]Dr. Anjali Reagan Protein [Mass/Vol] 7.9 g/dL Normal 6.4-8.2 [facility] Comment on above: Performed By: #### C RP, CMP ####[facility] Awkhmlhedh[address] [place], [place] [address]Dr. Anjali Reagan Sodium [Moles/Vol] 138 mmol/L Normal 136-145 [facility] Comment on above: Performed By: #### C RP, CMP ####[facility] Rhvnbyxxru8[address] [place], [place] [address]Dr. Anjali Reagan Urea nitrogen [Mass/Vol] 50.0 mg/dL Critically high 7.0-18 .0 [facility] Comment on above: Performed By: #### C RP, CMP ####[facility] Lxasnkdgwc23[address] [place], [place] [address]Dr. Anjali Reagan Urea nitrogen/Creatinine [Mass ratio] 28.9 mg/mg Normal [facility] Comment on above: Performed By: #### C RP, CMP ####[facility] Rsfyswnwqq8008 [place] [address]Dr. Anjali Reagan SED RATE [facility] 2021 SED RATE 17 mm/hr Normal <=20 [facility] Comment on above: Performed By: #### S EDR ####[facility] Dshdlejfsx13[address] [place], [place] [address]Dr. Anjali Reagan CBC (INCLUDES DIFF/PLT)on Basophils (Bld) [#/Vol] 0.034 10*3/uL Normal 0-200 [facility] Comment on above: Performed By: #### 6 399, 496, 718, 04256 #### [facility] [place] [address] Cuff Knitter: Juan Meraz MD Basophils/100 WBC (Bld) 0.3 % Normal [facility] Comment on above: Performed By: #### 6 399, 496, 718, 11271 #### [facility] [place] [address] Cuff Knitter: Juan Meraz MD Eosinophils (Bld) [#/Vol] 0.023 10*3/uL Normal 15-500 [facility] Comment on above: Performed By: #### 6 399, 496, 718, 48618 #### [facility] [place] [address] Cuff Knitter: Juan Meraz MD Eosinophils/100 WBC (Bld) 0.2 % Normal [facility] Comment on above: Performed By: #### 6 399, 496, 718, 97970 #### [facility] [place] [address] Cuff Knitter: Juan Meraz MD Erythrocyte distribution width (RBC) [Ratio] 15.6 % High 11.0-15.0 [facility] Comment on above: Performed By: #### 6 399, 496, 718, 02736 #### [facility] [place] [address] Cuff Knitter: Juan Meraz MD Hematocrit (Bld) [Volume fraction] 38.9 % Normal 38.5-50.0 [facility] Comment on above: Performed By: #### 6 399, 496, 718, 14452 #### [facility] [place] [address] Cuff Knitter: Juan Meraz MD Hemoglobin (Bld) [Mass/Vol] 12.7 g/dL Low 13.2-17.1 [facility] Comment on above: Performed By: #### 6 399, 496, 718, 95258 #### [facility] [place] [address] Cuff Knitter: Juan Meraz MD Lymphocytes (Bld) [#/Vol] 0.531 10*3/uL Low 850-3900 [facility] Comment on above: Performed By: #### 6 399, 496, 718, 64174 #### [facility] [place] [address] Cuff Knitter: Juan Meraz MD Lymphocytes/100 WBC (Bld) 4.7 % Normal [facility] Comment on above: Performed By: #### 6 399, 496, 718, 07658 #### [facility] [place] [address] Cuff Knitter: Juan Meraz MD MCH (RBC) [Entitic mass] 28.2 pg Normal 27.0-33.0 [facility] Comment on above: Performed By: #### 6 399, 496, 718, 50910 #### [facility] [place] [address] Cuff Knitter: Juan Meraz MD MCHC (RBC) [Mass/Vol] 32.6 g/dL Normal 32.0-36.[address] [facility] Comment on above: Performed By: #### 6 399, 496, 718, 57721 #### [facility] [place] [address] Cuff Knitter: Juan Meraz MD MCV (RBC) [Entitic vol] 86.4 fL Normal 80.0-100.0 [facility] Comment on above: Performed By: #### 6 399, 496, 718, 97327 #### [facility] [place] [address] Cuff Knitter: Juan Meraz MD Monocytes (Bld) [#/Vol] 1.119 10*3/uL High 200-950 [facility] Comment on above: Performed By: #### 6 399, 496, 718, 29507 #### [facility] [place] [address] Cuff Knitter: Juan Meraz MD Monocytes/100 WBC (Bld) 9.9 % Normal [facility] Comment on above: Performed By: #### 6 399, 496, 718, 26346 #### [facility] [place] [address] Cuff Knitter: Juan Meraz MD Neutrophils (Bld) [#/Vol] 9.594 10*3/uL High 8977-8943 [facility] Comment on above: Performed By: #### 6 399, 496, 718, 14687 #### [facility] [place] [address] Cuff Knitter: Juan Meraz MD Neutrophils/100 WBC (Bld) 84.9 % Normal [facility] Comment on above: Performed By: #### 6 399, 496, 718, 15486 #### [facility] [place] [address] Cuff Knitter: uJan Meraz MD Platelet mean volume (Bld) [Entitic vol] 10.1 fL Normal 7.5-12.5 [facility] Comment on above: Performed By: #### 6 399, 496, 718, 42756 #### [facility] [place] [address] Cuff Knitter: Juan Meraz MD Platelets (Bld) [#/Vol] 267 10*3/uL Normal 140-400 [facility] Comment on above: Performed By: #### 6 399, 496, 718, 88049 #### [facility] [place] [address] Cuff Knitter: Juan Meraz MD RBC (Bld) [#/Vol] 4.50 10*6/uL Normal 4.20-5.80 [facility] Comment on above: Performed By: #### 6 399, 496, 718, 33979 #### [facility] [address], [address] [place] [address] Cuff Knitter: Juan Meraz MD WBC (Bld) [#/Vol] 11.3 10*3/uL High 3.8-10.8 [facility] Comment on above: Performed By: #### 6 399, 496, 718, 89972 #### [facility] [address], [address] [place] [address] Cuff Knitter: Juan Meraz MD HEMOGLOBIN A1con 08-23-2021 HEMOGLOBIN [...] Performed By: #### 6 399, 496, 718, 76272 #### [facility] [address], [address] [place] [address] Cuff Knitter: Juan Meraz MD PHOSPHATE ( PHOSPHORUS)on 08-23-2021 Phosphate [Mass/Vol] 3.7 mg/dL Normal 2.5-4.5 [facility] Comment on above: Order Comment: PATIE NT UNABLE TO VOID; ADVISED TO RETURN FOR COLLECTION. Performed By: #### 6 399, 496, 718, 62929 #### [facility] [place] [address] Cuff Knitter: Juan Meraz MD PTH, INTACT WITHOUT CALCIUMo [...] Performed By: #### 6 399, 496, 718, 89189 #### [facility] [place] [address] [facility], [address] [place] [address] Cuff Knitter: Juan Meraz MD VITAMIN D,25-OH,TOTAL,IAon 0 08-23-2021 [...] D, (D2,D3), LC/MS/MS is recommended: order code 60252 (patients >2yrs). See Note 1 Note 1 For additional information, please refer to http://education.Legal River/faq/NBL151 (This link is being provided for informational/ educational purposes only.) Performed By: #### 6 399, 496, 718, 25466 #### [facility] [address], [address] [place] [address] Cuff Knitter: Juan Meraz MD CBC W MANUAL DIFFon 07-06-19 22 ATYPICAL LYMPH # Normal [facility] Comment on above: Performed By: #### Uzair PERSAUD ####[facility] Yqfqdqhzsk2423 [place] [id number]. Anjali Reagan ATYPICAL LYMPH % Normal [facility] Comment on above: Performed By: #### Uzair PERSAUD ####[facility] Ksenpsdbex7646 [place], [place] [address]Aw. Anjali Reagan BAND # 0.1 103/ul Normal 0.0-0.3 [facility] Comment on above: Performed By: #### C BCMAN ####[facility] Cmbebfczch5849 [place] [id number]. Anjali Reagan BAND % 1 % Normal 0-5 [facility] Comment on above: Performed By: #### C BCMAN ####[facility] Tjxqsektsh8336 [place] [address]Dr. Anjali Reagan BASOM # 0.00 103/ul Normal 0.00-0.10 [facility] Comment on above: Performed By: #### C BCMAN ####[facility] Pbidvjpbny5217 [place] [address]Dr. Anjali Reagan BASOM % 0.0 % Critically low 0.2-2.0 [facility] Comment on above: Performed By: #### C BCMAN ####[facility] Gadygornew8283 [place] [address]Dr. Anjali Reagan BLAST # Normal [facility] Comment on above: Performed By: #### C BCFIONA ####[facility] Ingjfppsfj[address] [place], [place] [address]Dr. Yiramona Reagan BLAST % Normal [facility] Comment on above: Performed By: #### C BCFIONA ####[facility] Kouhiconct9155 [place] [address]Dr. Anjali Reagan CORRECTED WBC Normal 4.0-11.0 [facility] Comment on above: Performed By: #### C BCFIONA ####[facility] Lygvbczvwr4274 [place] [address]Dr. Anjali Reagan EOS # 0.16 103/ul Normal 0.00-0.70 [facility] Comment on above: Performed By: #### C BCMAN ####[facility] Vqzmvhdfpx[address] [place], [place] [address]Dr. Anjali Reagan EOS% 2.0 % Normal 0.9-7.0 [facility] Comment on above: Performed By: #### C BCMAN ####[facility] Khpwyjvrnx7577 [place] [address]Dr. Anjali Reagan HCT 35.3 % Critically low 42.0-54.0 [facility] Comment on above: Performed By: #### C CORI ####[facility] Lnlsrdwwsa5012 [place] [id number]. Anjali Reagan HGB 11.4 g/dl Critically low 14.0-18.0 [facility] Comment on above: Performed By: #### C CORI ####[facility] Noxkegzluw0795 [place] [address]Dr. Anjali Reagan LYMPHM # 0.70 103/ul Critically low 1.20-3.80 [facility] Comment on above: Performed By: #### C CORI ####[facility] Rrsnroaokb5510 [place] [address]Dr. Anjali Reagan LYMPHM% 9.0 % Critically low 20.5-60.0 [facility] Comment on above: Performed By: #### C CORI ####[facility] Qeyicqvevu2107 [place] [address]Dr. Anjali Reagan MCH 27.5 pg Normal 25.9-34.0 [facility] Comment on above: Performed By: #### C CORI ####[facility] Afzyfzflpp1212 [place] [address]Dr. Anjali Reagan MCHC 32.3 g/dl Normal 29.9-35.2 [facility] Comment on above: Performed By: #### C CORI ####[facility] Sstjaarpjw7296 [place] [id number]. Anjali Reagan MCV 85.3 fL Normal 80.0-94.0 [facility] Comment on above: Performed By: #### C CORI ####[facility] Xkqkithvcz1049 [place] [address]Dr. Anjali Reagan METAMYELOCYTE # Normal [facility] [place] [facility] Comment on above: Performed By: #### C CORI ####[facility] Abqzjbockk4472 [place] [address]Dr. Anjali Reagan METAMYELOCYTE % Normal [facility] [place] [facility] Comment on above: Performed By: #### Uzair PERSAUD ####[facility] Xrfhnqnkpx1408 [place] [address]Dr. Anjali Reagan MONOM# 1.09 103/ul Critically high 0.30-0.80 [facility] Comment on above: Performed By: #### C CORI ####[facility] Dkjqrsoept5927 [place] [address]Dr. Anjali Reagan MONOM% 14.0 % Critically high 1.7-12.0 [facility] [place] [facility] Comment on above: Performed By: #### C CORI ####[facility] Tgbozwhwvo7956 [place] [address]Dr. Anjali Reagan MPV 9.6 fL Normal 9.5-13.5 [facility] Comment on above: Performed By: #### C CORI ####[facility] Nyvubdwfwj5399 [place] [address]Dr. Anjali Reagan MYELOCYTE # Normal [facility] Comment on above: Performed By: #### C CORI ####[facility] Xmgmfgerpu8172 [place] [address]Dr. Anjali Reagan MYELOCYTE % Normal [facility] Comment on above: Performed By: #### C CORI ####[facility] Vjjnvaffwn4306 [place] [address]Dr. Anjali Reagan NRBC Normal [facility] Comment on above: Performed By: #### C CORI ####[facility] Vfkiyriuem0612 [place], [place] [address]Dj. Anjali Reagan PLT 119 103/ul Critically low 150-450 [facility] Comment on above: Performed By: #### C CORI ####[facility] Rufmignxue2535 [place] [id number]. Anjali Reagan RBC 4.14 106/ul Critically low 4.70-6.10 [facility] [place] [facility] Comment on above: Performed By: #### C CORI ####[facility] Joqqrrjvfi6178 [place] [id number]. Anjali Reagan RDW 16.1 % Critically high 11.0-15.0 [facility] [place] [facility] Comment on above: Performed By: #### C CORI ####[facility] Mctuiuexqy1055 [place] [id number]. Anjali Reagan SEG # 5.77 103/ul Normal 1.40-6.50 [facility] Comment on above: Performed By: #### C CORI ####[facility] Zsjxpjwmcn7998 [place] [address]Dr. Anjali Reagan SEG % 74.0 % Normal 43.0-75.0 [facility] Comment on above: Performed By: #### C CORI ####[facility] Zzvxedpdfr5979 [place] [id number]. Anjali Tez WBC 7.8 103/ul Normal 4.0-11.0 [facility] Comment on above: Performed By: #### Uzair PERSAUD ####[facility] Pcusniwzdm5337 [place] [address]Dr. Biancaramona Reagan CRPon 07-05-2021 CRP [Mass/Vol] mg/L Critically high <=1.0 [facility] Comment on above: Performed By: #### C RP, BMP ####[facility] Yastrcmrcp9650 [place] [address]Dr. Anjali Reagan PROF CHEM 8 (BAS METB)on Anion gap [Moles/Vol] 10.1 mmol/L Normal [facility] Comment on above: Performed By: #### C RP, BMP ####[facility] Izikzondhh2739 [place] [address]Dr. Anjali Reagan Calcium [Mass/Vol] 9.6 mg/dL Normal 8.5-10.1 [facility] Comment on above: Performed By: #### C RP, BMP ####[facility] Uhtehnlrzg1601 [place] [address]Dr. Anjali Reagan Chloride [Moles/Vol] 100 mmol/L Normal 98-107 [facility] Comment on above: Performed By: #### C RP, BMP ####[facility] Xhwqkayetj2774 [place] [address]Dr. Anjali Reagan CO2 [Moles/Vol] 30.4 mmol/L Critically high 22.0-30.0 [facility] Comment on above: Performed By: #### C RP, BMP ####[facility] Cjloprrisv5075 [place] [id number]. Anjali Reagan Creatinine [Mass/Vol] 1.49 mg/dL Critically high 0.66-1.25 [facility] Comment on above: Performed By: #### C RP, BMP ####[facility] Omutepwpzv0835 [place] [address]Dr. Anjali Reagan EGFR-AF MALTESE 58 mL/min/1.73m2 Critically low >=60 [facility] Comment on above: Performed By: #### C RP, BMP ####[facility] Dkvnmargff6323 [place] [address]Dr. Anjali Reagan EGFR-NON AF MALTESE 48 mL/min/1.73m2 Critically low >=60 [facility] Comment on above: Performed By: #### C RP, BMP ####[facility] [address]aongngndw[address] [place], [place] [address]Dr. Anjali Reagan Glucose [Mass/Vol] 191 mg/dL Critically high 74-106 [facility] Comment on above: Performed By: #### C RP, BMP ####[facility] Ifeajmimpz[address] [place], [place] [address]Dr. Anjali Reagan Potassium [Moles/Vol] 4.5 mmol/L Normal 3.4-5.0 [facility] Comment on above: Performed By: #### C RP, BMP ####[facility] Fsxupjpnus[address] [place], [place] [address]Dr. Biancaramona Reagan Sodium [Moles/Vol] 136 mmol/L Critically low 137-145 [facility] Comment on above: Performed By: #### C RP, BMP ####[facility] Euccyktakd5[address] [place], [place] [address]Dr. Anjali Reagan Urea nitrogen [Mass/Vol] 33.0 mg/dL Critically high 7.0-18 .0 [facility] Comment on above: Performed By: #### C RP, BMP ####[facility] Fyhltrhwwf[address] [place], [place] [address]Dr. Anjali Reagan Urea nitrogen/Creatinine [Mass ratio] 22.1 mg/mg Normal [facility] Comment on above: Performed By: #### C RP, BMP ####[facility] Kaewxjzodg6323 [place] [id number]. Anjali Reagan SED RATE WESTERGRENon 2021 SED RATE 26 mm/hr Critically high <=20 [facility] [place] [facility] Comment on above: Performed By: #### S EDR ####[facility] Zypmyubvno6775 [place] [id number]. Anjali Reagan XR ANKLE RT MIN 3 VIEWSon XR ANKLE RT MIN 3 VIEWS Normal [facility] CT ANKLE RT WO CONon 022 CT ANKLE RT WO CON Normal [facility] CULTURE OTHERon 05-19-2021 CULTURE OTHER Normal [facility] Comment on above: Performed By: #### O THCX ####[facility] Pjaimtfuxo5916 [place] [address]Dr. Anjali Reagan CULTURE ANAEROBICon 05-16-19 22 CULTURE ANAEROBIC Specimen Comments: RIGHT FOOT ABSCESS Culture Observations: NO GROWTH OF ANAEROBES AT 72 HOURS. Normal [facility] Comment on above: Performed By: #### A NACX ####[facility] Vaowgalqsj[address] [place], [place] [address]Dr. Anjali Reagan GRAM STAINon 05-16-2021 DIPHTHEROIDS Normal [facility] Comment on above: Performed By: #### G STAIN ####[facility] Usloqopuck8767 [place] [id number]. Anjali Reagan EPITHELIALS Normal [facility] Comment on above: Performed By: #### G STAIN ####[facility] Trwwrmsequ2145 [place] [id number]. Anjali Reagan FUNGAL ELEMENTS Normal [facility] [place] [facility] Comment on above: Performed By: #### G STAIN ####[facility] Ksuacdrsqp2208 [place] [address]Dr. Anjali Reagan GRAM NEG BACILLI MANY Normal [facility] Comment on above: Performed By: #### G STAIN ####[facility] Gutvfmdalf7914 [place] [address]Dr. Anjali Reagan GRAM NEG DIPPLOCOCCI Normal [facility] Comment on above: Performed By: #### G STAIN ####[facility] Bvfomtwnxg8099 [place] [address]Dr. Anjali Reagan GRAM POS BACILLI Normal [facility] Comment on above: Performed By: #### G STAIN ####[facility] Mxkvgzqnzx0681 [place] [id number]. Anjali Reagan GRAM POSITIVE COCCI Normal [facility] Comment on above: Performed By: #### G STAIN ####[facility] Skvoezrbnr[address] [place], [place] [address]Dr. Anjali Reagan GRAM STAIN SOURCE RIGHT FOOT Normal [facility] Comment on above: Performed By: #### G STAIN ####[facility] Roaoiadzvj9561 [place] [address]Dr. Anjali Reagan GS_DIPTH Normal [facility] Comment on above: Performed By: #### G STAIN ####[facility] Utfbthyxys[address] [place], [place] [address]Dr. Anjali Reagan WBC MANY Normal [facility] Comment on above: Performed By: #### G STAIN ####[facility] Uvyzzcavaa[address] [place], [place] [address]Dr. Anjali Reagan XR ANKLE RT MIN 3 VIEWSon XR ANKLE RT MIN 3 VIEWS Normal [facility] COMPREHENSIVE METABOLIC PANE Ray 04-16-2021 Albumin [Mass/Vol] 4.6 g/dL Normal 3.6-5.1 [facility] Comment on above: Performed By: #### 7 600, 496, 13314 #### [facility] [address], [address] [place] [phone] Cuff Knitter: Juan Meraz MD Albumin/Globulin [Mass ratio] 1.7 {ratio} Normal 1.0-2.5 [facility] Comment on above: Performed By: #### 7 600, 496, 75113 #### [facility] [address] [facility], [address] [place] [phone] Cuff Knitter: Juan Meraz MD ALP [Catalytic activity/Vol] 119 U/L Normal 35-144 [facility] Comment on above: Performed By: #### 7 600, 496, 79382 #### [facility] [place] [address] Cuff Knitter: Juan Meraz MD ALT [Catalytic activity/Vol] 19 U/L Normal 9-46 [facility] Comment on above: Performed By: #### 7 600, 496, 78727 #### [facility] [place] [address] Cuff Knitter: Juan Meraz MD AST [Catalytic activity/Vol] 20 U/L Normal 10-35 [facility] Comment on above: Performed By: #### 7 600, 496, 61778 #### [facility] [place] [address] Cuff Knitter: Juan Meraz MD Bilirubin [Mass/Vol] 0.6 mg/dL Normal 0.2-1.2 [facility] Comment on above: Performed By: #### 7 600, 496, 05362 #### [facility] [place] [address] Cuff Knitter: Juan Meraz MD Calcium [Mass/Vol] 9.9 mg/dL Normal 8.6-10.3 [facility] Comment on above: Performed By: #### 7 600, 496, 63560 #### [facility] [place] [address] Cuff Knitter: Juan Meraz MD Chloride [Moles/Vol] 102 mmol/L Normal 98-110 [facility] Comment on above: Performed By: #### 7 600, 496, 37752 #### [facility] [place] [address] Cuff Knitter: Juan Meraz MD CO2 [Moles/Vol] 28 mmol/L Normal 20-32 [facility] Comment on above: Performed By: #### 7 600, 496, 14665 #### [facility] [place] [address] Cuff Knitter: Juan Meraz MD Creatinine [Mass/Vol] 1.59 mg/dL High 0.70-1.[address] [facility] Comment on above: Result Comment: For patients >49 years of age, the reference limit for Creatinine is approximately 13% higher for people identified as -Ecuadorean. Performed By: #### 7 600, 496, 44383 #### [facility] [place] [address] Cuff Knitter: Juan Meraz MD eGFR NON-AFR. MALTESE 46 mL/min/1.73m2 Low > OR = 60 [facility] Comment on above: Performed By: #### 7 600, 496, 23587 #### [facility] [place] [address] Cuff Knitter: Juan Meraz MD GFR/1.73 sq M.predicted among blacks MDRD (S/P/Bld) [Vol rate/Area] 53 mL/min/{1.73_m2} Low > OR = 60 [facility] Comment on above: Performed By: #### 7 600, 496, 30653 #### [facility] [place] [address] Cuff Knitter: Juan Meraz MD Globulin (S) [Mass/Vol] 2.7 g/dL Normal 1.9-3.7 [facility] Comment on above: Performed By: #### 7 600, 496, 08997 #### [facility] [place] [address] Cuff Knitter: Juan Meraz MD Glucose [Mass/Vol] 176 mg/dL High 65-139 [facility] Comment on above: Result Comment: Non-fasting reference interval For someone without known diabetes, a glucose value >125 mg/dL indicates that they may have diabetes and this should be confirmed with a follow-up test. Performed By: #### 7 600, 496, 53385 #### [facility] [address] [place] [address] Cuff Knitter: Juan Meraz MD Potassium [Moles/Vol] 4.2 mmol/L Normal 3.5-5.[address] [facility] [address] [facility] Comment on above: Performed By: #### 7 600, 496, 66467 #### [facility] [place] [address] Cuff Knitter: Juan Meraz MD Protein [Mass/Vol] 7.3 g/dL Normal 6.1-8.1 [facility] Comment on above: Performed By: #### 7 600, 496, 96470 #### [facility] [place] [address] Cuff Knitter: Juan Meraz MD Sodium [Moles/Vol] 138 mmol/L Normal 135-146 [facility] Comment on above: Performed By: #### 7 600, 496, 89041 #### [facility] [place] [address] Cuff Knitter: Juan Meraz MD Urea nitrogen [Mass/Vol] 48 mg/dL High 7-25 [facility] Comment on above: Performed By: #### 7 600, 496, 07598 #### [facility] [place] [address] Cuff Knitter: Juan Meraz MD Urea nitrogen/Creatinine [Mass ratio] 30 mg/mg High 6-22 [facility] Comment on above: Performed By: #### 7 600, 496, 10029 #### [facility] [place] [address] Cuff Knitter: Juan Meraz MD HEMOGLOBIN A1con 04-16-2021 HEMOGLOBIN [...] 1 0165, 496, 905 #### [facility] [address], [address] [place] [address] Cuff Knitter: Juan Meraz MD LIPID PANEL, [facility] 04-02 Cholesterol [Mass/Vol] 108 mg/dL Normal <200 [facility] Comment on above: Order Comment: FASTI NG:NO FASTING: NO Performed By: #### 7 600, 496, 71824 #### [facility] [address], [address] [place] [address] Cuff Knitter: Juan Meraz MD Cholesterol in HDL [Mass/Vol] 47 mg/dL Normal > OR = 40 [facility] Comment on above: Order Comment: FASTI NG:NO FASTING: NO Performed By: #### 7 600, 496, 51279 #### [facility] [address], [address] [place] [address] Cuff Knitter: Juan Meraz MD Cholesterol in LDL [Mass/Vol] [...] LDL-C. Camden BAH et al. TABITHA. 2013;310(19): 2231-8725 (http://education.[employer].Metabiota/faq/QID170) Performed By: #### 7 600, 496, 34023 #### [facility] [address], [address] [place] [address] Cuff Knitter: Juan Meraz MD Cholesterol.total/Choles terol in HDL [Mass ratio] 2.3 {ratio} Normal <5.0 [facility] Comment on above: Order Comment: FASTI NG:NO FASTING: NO Performed By: #### 7 600, 496, 26472 #### [facility] [address], [address] [place] [address] Cuff Knitter: Juan Meraz MD NON HDL CHOLESTEROL 61 mg/dL (calc) Normal <130 [facility] Comment on above: Order Comment: FASTI NG:NO FASTING: NO Result Comment: For patients with diabetes plus 1 major ASCVD risk factor, treating to a non-HDL-C goal of <100 mg/dL (LDL-C of <70 mg/dL) is considered a therapeutic option. Performed By: #### 7 600, 496, 20521 #### [facility] [place] [address] Cuff Knitter: Juan Meraz MD Triglyceride [Mass/Vol] 102 mg/dL Normal <150 [facility] Comment on above: Order Comment: FASTI NG:NO FASTING: NO Performed By: #### 7 600, 496, 09569 #### [facility] [address], [address] [place] [address] Cuff Knitter: Juan Meraz MD CT ANKLE RT WO CONon 022 CT ANKLE RT WO CON Normal [facility] XR ANKLE RT MIN 3 VIEWSon XR ANKLE RT MIN 3 VIEWS Normal T [facility] ACID FAST SMEAR AND CXon Acid Fast Culture Negative Normal [facility] Comment on above: Result Comment: No a rj fast bacilli isolated after 6 weeks. Performed By: #### A FB ####[facility] Zqjwueobqz0813 [place], [place] [address]Gy. Anjali Reagan Acid Fast Smear Negative Normal [facility] [place] [facility] Comment on above: Performed By: #### A FB ####[facility] Eadncfftzv4912 [place], [place] [address]Wm. [employer] Specimen Processing Direct Inoculation Normal [facility] Comment on above: Performed By: #### A FB ####[facility] Nghpsavbgx9998 [place] [address]Dr. Anjali Reagan ACID FAST SMEAR AND CXon Acid Fast Culture Negative Normal [facility] Comment on above: Result Comment: No a rj fast bacilli isolated after 6 weeks. Performed By: #### A FB ####[facility] [address] [place] [address]Dr. Anjali Reaagn Acid Fast Smear Negative Normal [facility] Comment on above: Performed By: #### A FB ####[facility] C[address] [place], [place] [address]Dr. Anjali [employer] Specimen Processing [facility] Comment on above: Performed By: #### A FB ####[facility] [address] [place], [place] [address]Dr. Anjali [employer] Specimen Processing Direct Inoculation Normal [facility] Comment on above: Performed By: #### A FB ####[facility] Kctkx[address] [place], [place] [address]Dr. Anjali Reagan FUNGAL CULTUREon 03-15-2021 Fungus (Mycology) Culture Final report Normal [facility] Comment on above: Performed By: #### C XFUN ####[facility] I[address]ocs[address] [place], [place] [address]Dr. Anjali Reagan Fungus Stain Final report Normal [facility] Comment on above: Performed By: #### C XFUN ####[facility] F[address]kathjofn[address] [place], [place] [address]Dr. Anjali Reagan Result 1 Comment Normal [facility] Comment on above: Result Comment: MIRIAN/ Calcofluor preparation: no fungus observed. Performed By: #### C XFUN ####[facility] Laizplymil[address] [place], [place] [address]Dr. Anjali Reagan Result Comment: No y east or mold isolated after 4 weeks. FUNGAL CULTUREon 03-09-2021 Fungus (Mycology) Culture Final report Normal [facility] Comment on above: Performed By: #### C XFUN ####[facility] Xzhxckpmsz[address] [place], [place] [address]Dr. Anjali Reagan Fungus Stain Final report Normal [facility] Comment on above: Performed By: #### C XFUN ####[facility] Qulwwcniaz8850 [place], [place] [address]Vh. Anjali Reagan Result 1 Comment Normal [facility] Comment on above: Result Comment: MIRIAN/ Calcofluor preparation: no fungus observed. Performed By: #### C XFUN ####[facility] Zelstltcny9971 [place], [place] [address]Ne. Anjali Tez Result Comment: No y east or mold isolated after 4 weeks. XR ANKLE RT MIN 3 VIEWSon XR ANKLE RT MIN 3 VIEWS Normal T he [facility] Otolaryngology Office/Clinic Noteon 02-28-2021 Otolaryngology Office/Clinic Note [...] Dr. Freed. Previous pathology by physician in [place] about 1 year ago. PMHx of multiple [...] postauricular m (more content not included)... Normal [facility] CBC W MANUAL DIFFon 02-13-20 21 ATYPICAL LYMPH # Normal [facility] Comment on above: Performed By: #### C CORI ####[facility] Mssobevxoa[address] [place] [address]Dr. Anjali Reagan ATYPICAL LYMPH % Normal [facility] Comment on above: Performed By: #### C CORI ####[facility] Egwoesdmdb[address] [place] [address]Dr. Biancalan Reagan BAND # 0.3 103/ul Normal 0.0-0.3 [facility] Comment on above: Performed By: #### C CORI ####[facility] G[address]myjijwoe[address] [place] [address]Dr. Biancalan Reagan BAND % 4 % Normal 0-5 [facility] Comment on above: Performed By: #### C CORI ####[facility] [address]xkrzpxilk97[address] [place] [address]Dr. Biancalan Reagan BASOM # 0.00 103/ul Normal 0.00-0.10 [facility] Comment on above: Performed By: #### C BCFIONA ####[facility] Gsjeneraat[address] [place] [address]Dr. Anjali Reagan BASOM % 0.0 % Critically low 0.2-2.0 [facility] Comment on above: Performed By: #### C CORI ####[facility] Ufmswqszjp[address] [place] [address]Dr. Anjali Reagan BLAST # Normal [facility] Comment on above: Performed By: #### C BCFIONA ####[facility] [address]ihzvrnlb60[address] [place] [address]Dr. Anjali Reagan BLAST % Normal [facility] Comment on above: Performed By: #### C CORI ####[facility] [address] [place], [place] [address]Dr. Anjali Reagan CORRECTED WBC Normal 4.0-11.0 [facility] Comment on above: Performed By: #### C CORI ####[facility] Rfogwed[address] [place], [place] [address]Dr. Anjali Reagan EOS # 0.28 103/ul Normal 0.00-0.70 [facility] Comment on above: Performed By: #### C CORI ####[facility] L[address]ymixmai[address] [place], [place] [address]Dr. Anjali Reagan EOS% 4.0 % Normal 0.9-7.0 [facility] Comment on above: Performed By: #### C BCFIONA ####[facility] Wh[address]im[address] [place], [place] [address]Dr. Anjali Reagan HCT 28.5 % Critically low 42.0-54.0 [facility] Comment on above: Performed By: #### C BCFIONA ####[facility] [address] [place], [place] [address]Dr. Anjali Reagan HGB 8.6 g/dl Critically low 14.0-18.0 [facility] Comment on above: Performed By: #### C CORI ####[facility] Yicc[address]jj[address] [place], [place] [address]Dr. Anjali Reagan HYPOCHROMASIA 3+ Normal [facility] Comment on above: Performed By: #### C CORI ####[facility] K[address]iosnhwir[address] [place] [address]Dr. Anjali Reagan LYMPHM # 0.57 103/ul Critically low 1.20-3.80 [facility] Comment on above: Performed By: #### C BCFIONA ####[facility] Yadffvzcjp0593 [place] [address]Dr. Anjali Reagan LYMPHM% 8.0 % Critically low 20.5-60.0 [facility] Comment on above: Performed By: #### C CORI ####[facility] Alsqycaska7915 [place] [address]Dr. Anjali Reagan MCH 25.4 pg Critically low 25.9-34.0 [facility] Comment on above: Performed By: #### C CORI ####[facility] Sjnwodflwp0498 [place] [address]Dr. Anjali Reagan MCHC 30.2 g/dl Normal 29.9-35.2 [facility] Comment on above: Performed By: #### C CORI ####[facility] Ynypzjjnvb1935 [place] [address]Dr. Anjali Reagan MCV 84.1 fL Normal 80.0-94.0 [facility] Comment on above: Performed By: #### C CORI ####[facility] Qrggqfupwm7847 [place] [address]Dr. Anjali Reagan METAMYELOCYTE # Normal [facility] [place] [facility] Comment on above: Performed By: #### C BCFIONA ####[facility] Sfggxalzqv7861 [place] [address]Dr. Anjali Reagan METAMYELOCYTE % Normal [facility] [place] [facility] Comment on above: Performed By: #### C CORI ####[facility] Lagllrjkhd[address] [place] [address]Dr. Anjali Reagan MICROCYTOSIS 2+ Normal [facility] Comment on above: Performed By: #### C CORI ####[facility] Nxekxkejzx0512 [place] [address]Dr. Anjali Reagan MONOM# 0.14 103/ul Critically low 0.30-0.80 [facility] [place] [facility] Comment on above: Performed By: #### C CORI ####[facility] Jzrrmnwgur[address]87 [place] [address]Dr. Anjali Reagan MONOM% 2.0 % Normal 1.7-12.0 [facility] Comment on above: Performed By: #### C CORI ####[facility] Tvpliofizw2239 [place] [address]Dr. Anjali Reagan MPV 9.3 fL Critically low 9.5-13.5 [facility] Comment on above: Performed By: #### C CORI ####[facility] Msdrsnnigs7352 [place] [address]Dr. Anjali Reagan MYELOCYTE # Normal [facility] Comment on above: Performed By: #### C CORI ####[facility] Bgjugqucpl36[address] [place] [address]Dr. Anjali Reagan MYELOCYTE % Normal [facility] Comment on above: Performed By: #### C CORI ####[facility] Yhsfkhiusc8526 [place] [address]Dr. Anjali Reagan NRBC 1 Normal [facility] Comment on above: Performed By: #### C CORI ####[facility] Uqivfrzexj1480 [place] [id number]. Anjali Reagan PLT 186 103/ul Normal 150-450 [facility] Comment on above: Performed By: #### C CORI ####[facility] Rlyrjshvnz1030 [place] [address]Dr. Anjali Reagan RBC 3.39 106/ul Critically low 4.70-6.10 [facility] [place] [facility] Comment on above: Performed By: #### C CORI ####[facility] Ypmzqzjsmz299[address] [place] [address]Dr. Anjali Reagan RDW 18.8 % Critically high 11.0-15.0 [facility] [place] [facility] Comment on above: Performed By: #### C CORI ####[facility] Pvtljwfoaz495[address] [place] [address]Dr. Anjali Reagan SEG # 5.82 103/ul Normal 1.40-6.50 [facility] Comment on above: Performed By: #### C CORI ####[facility] Azhwwoeivt9668 [place] [address]Dr. Anjali Reagan SEG % 82.0 % Critically high 43.0-75.0 [facility] Comment on above: Performed By: #### C BCFIONA ####[facility] Morogwpcvr1871 [place] [address]Dr. Anjali Tez WBC 7.1 103/ul Normal 4.0-11.0 [facility] Comment on above: Performed By: #### C CORI ####[facility] Osjzhqlhzu01[address] [place] [address]Dr. Anjali Reagan POINT OF CARE GLUCOSEon 01-31 Glucose [Mass/Vol] 175 mg/dL Critically high 74-106 [facility] Comment on above: Performed By: #### P OCGLUC ####[facility] Gawtlojesk[address] [place] [address]Dr. Anjali Reagan PROF 14(COMP METB)on 021 Albumin [Mass/Vol] 2.4 g/dL Critically low 3.5-5.[address] [facility] Comment on above: Performed By: #### C MP ####[facility] Tmxiviozzq7012 [place] [address]Dr. Anjali Reagan Albumin/Globulin [Mass ratio] 0.6 {ratio} Normal [facility] Comment on above: Performed By: #### C MP ####[facility] Cuqufoqisv0976 [place] [address]Dr. Anjali Reagan ALP [Catalytic activity/Vol] 93 U/L Normal 38-126 [facility] Comment on above: Performed By: #### C MP ####[facility] Tickxjlaxu1066 [place] [address]Dr. Anjali Reagan ALT [Catalytic activity/Vol] 18 U/L Critically low 21-72 [facility] Comment on above: Performed By: #### C MP ####[facility] Mjhrxsoqww5328 [place] [id number]. Anjali Reagan Anion gap [Moles/Vol] 12.5 mmol/L Normal [facility] Comment on above: Performed By: #### C MP ####[facility] Xxpnhebzge3750 [place] [address]Dr. Anjali Reagan AST [Catalytic activity/Vol] 30 U/L Normal 17-59 [facility] Comment on above: Performed By: #### C MP ####[facility] Pkzasmusdv6851 [place] [address]Dr. Anjali Reagan Bilirubin [Mass/Vol] 0.5 mg/dL Normal 0.2-1.3 [facility] Comment on above: Performed By: #### C MP ####[facility] Yemwtoufol[address] [place], [place] [address]Dr. Biancaramona Reagan Calcium [Mass/Vol] 8.5 mg/dL Normal 8.4-10.2 [facility] Comment on above: Performed By: #### C MP ####[facility] Ihpyltndwu6412 [place] [address]Dr. Anjali Tez Chloride [Moles/Vol] 103 mmol/L Normal 98-107 [facility] Comment on above: Performed By: #### C MP ####[facility] Aablurbmml3147 [place] [address]Dr. Biancaramona Reagan CO2 [Moles/Vol] 25.8 mmol/L Normal 22.0-30.0 [facility] Comment on above: Performed By: #### C MP ####[facility] Yzapqnbrxk3558 [place] [address]Dr. Anjali Reagan Creatinine [Mass/Vol] 1.09 mg/dL Normal 0.66-1.25 [facility] Comment on above: Performed By: #### C MP ####[facility] Bbglumhadv2047 [place] [address]Dr. Anjali Tez EGFR-AF MALTESE >60 Normal >=60 [facility] Comment on above: Performed By: #### C MP ####[facility] Ocjdkziasn9129 [place] [id number]. Anjali Reagan EGFR-NON AF MALTESE >60 Normal >=60 [facility] Comment on above: Performed By: #### C MP ####[facility] Ykrqosvnci6507 [place] [address]Dr. Anjali Reagan Globulin (S) [Mass/Vol] 3.7 g/dL Normal [facility] Comment on above: Performed By: #### C MP ####[facility] Pfnebasggf2566 [place] [address]Dr. Anjali Reagan Glucose [Mass/Vol] 165 mg/dL Critically high 74-106 [facility] Comment on above: Performed By: #### C MP ####[facility] Yffzhpdmba5934 [place] [address]Dr. Anjali Reagan Potassium [Moles/Vol] 4.3 mmol/L Normal 3.4-5.0 [facility] Comment on above: Performed By: #### C MP ####[facility] Ngdvqmmhgr[address] [place], [place] [address]Dr. Anjali Reagan Protein [Mass/Vol] 6.1 g/dL Normal 6.1-8.2 [facility] Comment on above: Performed By: #### C MP ####[facility] Waqsolcfxn[address] [place], [place] [address]Dr. Anjali Reagan Sodium [Moles/Vol] 137 mmol/L Normal 137-145 [facility] Comment on above: Performed By: #### C MP ####[facility] Azcouhnzgm6[address] [place], [place] [address]Dr. Anjali Reagan Urea nitrogen [Mass/Vol] 24.0 mg/dL Critically high 9.0-20 .0 [facility] Comment on above: Performed By: #### C MP ####[facility] Iwmyceuuoj[address] [place], [place] [address]Dr. Anjali Reagan Urea nitrogen/Creatinine [Mass ratio] 22.0 mg/mg Normal [facility] Comment on above: Performed By: #### C MP ####[facility] Hnleppuajk[address] [place], [place] [address]Dr. Anjali Reagan ALBUMINon 02-11-2021 Albumin [Mass/Vol] 2.8 g/dL Critically low 3.5-5.[address] [facility] Comment on above: Performed By: #### P REALB, ALB ####[facility] Smkijgyxfw4874 [place] [address]Dr. Anjali Reagan CBC AUTO DIFFon 02-11-2021 BASO # 0.0 103/ul Normal 0.0-0.1 [facility] Comment on above: Performed By: #### C BC ####[facility] Krqhwakllv[address] [place], [place] [address]Dr. Anjali Tez Basophils/100 WBC (Bld) 0.5 % Normal 0.2-2.0 [facility] Comment on above: Performed By: #### C BC ####[facility] Zbinqoqwmv[address] [place], [place] [address]Dr. Anjali Tez EO # 0.5 103/ul Normal 0.0-0.7 [facility] Comment on above: Performed By: #### C BC ####[facility] X[address]myyppjgi[address] [place], [place] [address]Dr. Anjali Tez Eosinophils/100 WBC (Bld) 7.4 % Critically high 0.9-7.0 [facility] Comment on above: Performed By: #### C BC ####[facility] [address]zwskemqum[address] [place], [place] [address]Dr. Biancaramona Reagan Erythrocyte distribution width (RBC) [Ratio] 18.7 % Critically high 11.0-15.0 [facility] Comment on above: Performed By: #### C BC ####[facility] Hfrynxumjo[address] [place], [place] [address]Dr. Anjali Reagan Hematocrit (Bld) [Volume fraction] 30.7 % Critically low 42.0-54.0 [facility] Comment on above: Performed By: #### C BC ####[facility] Suzdeufchx[address] [place], [place] [address]Dr. Anjali Tez Hemoglobin (Bld) [Mass/Vol] 9.5 g/dL Critically low 14.0-18.0 [facility] Comment on above: Performed By: #### C BC ####[facility] Snskzpbuxl6266 [place] [address]DrVeronica Reagan IG # 0.05 10e3/ul Critically high 0.00-0.03 [facility] Comment on above: Performed By: #### C BC ####[facility] Gecvrntgnz6551 [place] [id number] Reagan IG % 0.8 % Critically high 0.0-0.5 [facility] Comment on above: Performed By: #### C BC ####[facility] Etcqivkkfo0336 [place] [address]DrVeronica Reagan LYMPH # 0.6 103/ul Critically low 1.2-3.8 [facility] Comment on above: Performed By: #### C BC ####[facility] Grltodhuqc5172 [place] [address]DrVeronica Reagan Lymphocytes/100 WBC (Bld) 8.5 % Critically low 20.5-60.0 [facility] Comment on above: Performed By: #### C BC ####[facility] Rrlpcqgnxj6411 [place] [address]DrVeronica Reagan MANUAL DIFF REQ NO Normal [facility] Comment on above: Performed By: #### C BC ####[facility] Rcgzpdqszp8782 [place] [address]DrVeronica Reagan MCH (RBC) [Entitic mass] 25.3 pg Critically low 25.9-34 .0 [facility] Comment on above: Performed By: #### C BC ####[facility] Sbosaoiwtc7781 [place] [address]DrVeronica Reagan MCHC (RBC) [Mass/Vol] 30.9 g/dL Normal 29.9-35.2 [facility] Comment on above: Performed By: #### C BC ####[facility] Okjmkhejfm6055 [place] [address]DrVeronica Reagan MCV (RBC) [Entitic vol] 81.6 fL Normal 80.0-94.0 [facility] Comment on above: Performed By: #### C BC ####[facility] Nvigqduewk4775 [place] [id number]. Anjali Reagan MONO # 0.8 103/ul Normal 0.3-0.8 [facility] Comment on above: Performed By: #### C BC ####[facility] Ubycinkflg1466 [place] [address]Dr. Anjali Reagan Monocytes/100 WBC (Bld) 12.2 % Critically high 1.7-12. 0 [facility] Comment on above: Performed By: #### C BC ####[facility] Tkdkiouhit5728 [place] [address]Dr. Anjali Reagan NEUT # 4.6 103/ul Normal 1.4-6.5 [facility] Comment on above: Performed By: #### C BC ####[facility] Eaxqxszpta9862 [place] [address]Dr. Anjali Reagan Neutrophils/100 WBC (Bld) 70.6 % Normal 43.0-75.0 [facility] Comment on above: Performed By: #### C BC ####[facility] Ixksjwupfj5909 [place] [id number]. Anjali Reagan Platelet mean volume (Bld) [Entitic vol] 9.6 fL Normal 9.5-13.5 [facility] Comment on above: Performed By: #### C BC ####[facility] Avostdnkxy6206 [place] [id number]. Anjali Reagan PLT 205 103/ul Normal 150-450 [facility] Comment on above: Performed By: #### C BC ####[facility] Hlyoyruvym2033 [place] [id number]. Anjali Reagan RBC 3.76 106/ul Critically low 4.70-6.10 [facility] [place] [facility] Hospital Comment on above: Performed By: #### C BC ####[facility] Jlrepwyrwj[address] [place] [id number]. Anjali Reagan WBC 6.5 103/ul Normal 4.0-11.0 [facility] Comment on above: Performed By: #### C BC ####[facility] Bagijiebjg[address] [place] [id number]. Anjali Reagan CULTURE ANAEROBICon 02-12-20 21 CULTURE ANAEROBIC Specimen Comments: RIGHT ANKLE JOINT Culture Observations: NO GROWTH AT 72 HRS Normal [facility] Comment on above: Performed By: #### A NACX ####[facility] Elksxnxpbi7[address] [place], [place] [address]Dr. Anjali Reagan CULTURE OTHERon 02-11-2021 CULTURE OTHER Specimen Comments: RIGHT ANKLE JOINT Culture Observations: NO GROWTH AT 72 HRS Normal [facility] Comment on above: Performed By: #### O THCX ####[facility] Hwhcsxjpiy26[address] [place], [place] [address]Dr. Anjali Reagan GRAM STAINon 02-11-2021 COMMENTS NO ORGANISMS OBSERVED Normal [facility] Comment on above: Performed By: #### G STAIN ####[facility] Jsmiyscapw6[address] [place], [place] [address]Dr. Anjali Reagan DIPHTHEROIDS Normal [facility] Comment on above: Performed By: #### G STAIN ####[facility] Irhrswwony[address] [place], [place] [address]Dr. Anjali Reagan EPITHELIALS Normal [facility] Comment on above: Performed By: #### G STAIN ####[facility] Qshjtuhzic7732[address] [place], [place] [address]Dr. Anjali Reagan FUNGAL ELEMENTS Normal [facility] [place] [facility] Comment on above: Performed By: #### G STAIN ####[facility] Slfvzxfyyk7979[address] [place], [place] [address]Dr. Anjali Reagan GRAM NEG BACILLI Normal [facility] Comment on above: Performed By: #### G STAIN ####[facility] Lrxgycuogi2112[address] [place], [place] [address]Dr. Anjali Reagan GRAM NEG DIPPLOCOCCI Normal [facility] Comment on above: Performed By: #### G STAIN ####[facility] Besgchzbuv5429[address] [place], [place] [address]Dr. Anjali Reagan GRAM POS BACILLI Normal [facility] Comment on above: Performed By: #### G STAIN ####[facility] R[address]wyiadcj[address] [place] [address]Dr. Anjali Reagan GRAM POSITIVE COCCI Normal [facility] Comment on above: Performed By: #### G STAIN ####[facility] Pnxyhjurcf[address] [place] [address]Dr. Anjali Reagan GRAM STAIN SOURCE Right ankle joint Normal [facility] Comment on above: Performed By: #### G STAIN ####[facility] Gnxygndbjp549[address] [place], [place] [address]Dr. Anjali Reagan GS_DIPTH Normal [facility] Comment on above: Performed By: #### G STAIN ####[facility] Urkholtqov85[address] [place], [place] [address]Dr. Anjali Reagan WBC FEW Normal [facility] Comment on above: Performed By: #### G STAIN ####[facility] Tpnndmyurw624[address] [place], [place] [address]Dr. Anjali Reagan POINT OF CARE GLUCOSEon 01-31 Glucose [Mass/Vol] 196 mg/dL Critically high 74-106 [facility] Comment on above: Performed By: #### P OCGLUC ####[facility] Rrhyzcnppg4967[address] [place], [place] [address]Dr. Anjali Reagan Glucose [Mass/Vol] 176 mg/dL Critically high 74-106 [facility] Comment on above: Performed By: #### P OCGLUC ####[facility] Vpeudzmtlf75[address] [place], [place] [address]Dr. Anjali Reagan PREALBUMINon 02-11-2021 Prealbumin [Mass/Vol] 17.8 mg/dL Normal 17.6-36.0 [facility] Comment on above: Performed By: #### P REALB, ALB ####[facility] Asyboabfwh[address] [place], [place] [address]Dr. Anjali Reagan PROF 14(COMP METB)on 021 Albumin [Mass/Vol] 2.6 g/dL Critically low 3.5-5.[address] [facility] Comment on above: Performed By: #### B MP, CMP ####[facility] Ersfledqgs[address] [place] [address]Dr. Anjali Reagan Albumin/Globulin [Mass ratio] 0.6 {ratio} Normal [facility] Comment on above: Performed By: #### B MP, CMP ####[facility] Djowcustyw6413[address] [place], [place] [address]Dr. Anjali Reagan ALP [Catalytic activity/Vol] 104 U/L Normal 38-126 [facility] Comment on above: Performed By: #### B MP, CMP ####[facility] Bnamxzdhnb3238[address] [place], [place] [address]Dr. Anjali Reagan ALT [Catalytic activity/Vol] 17 U/L Critically low 21-72 [facility] Comment on above: Performed By: #### B MP, CMP ####[facility] Lbgnymbeyn8880[address] [place], [place] [address]Dr. Anjali Reagan AST [Catalytic activity/Vol] 26 U/L Normal 17-59 [facility] Comment on above: Performed By: #### B MP, CMP ####[facility] Wwqkmjfqsp[address] [place], [place] [address]Dr. Anjali Reagan Bilirubin [Mass/Vol] 0.5 mg/dL Normal 0.2-1.3 [facility] Comment on above: Performed By: #### B MP, CMP ####[facility] Behknxwjfd035[address] [place], [place] [address]Dr. Anjali Reagan Globulin (S) [Mass/Vol] 4.1 g/dL Normal [facility] Comment on above: Performed By: #### B MP, CMP ####[facility] Pibcwcdfzh3282[address] [place], [place] [address]Dr. Anjali Reagan Protein [Mass/Vol] 6.7 g/dL Normal 6.1-8.2 [facility] Comment on above: Performed By: #### B MP, CMP ####[facility] Zppmyyuyti2665[address] [place], [place] [address]Dr. Anjali Reagan PROF CHEM 8 (BAS METB)on Anion gap [Moles/Vol] 11.3 mmol/L Normal [facility] Comment on above: Performed By: #### B MP, CMP ####[facility] Ysbskeeihz[address] [place] [id number]. Anjali Reagan Calcium [Mass/Vol] 9.0 mg/dL Normal 8.4-10.2 [facility] Comment on above: Performed By: #### B MP, CMP ####[facility] Ypexkqozbs1245 [place] [phone]. Anjali Reagan Chloride [Moles/Vol] 101 mmol/L Normal 98-107 [facility] Comment on above: Performed By: #### B MP, CMP ####[facility] Nyoepirnjw4408 [place] [phone]. Anjali Reagan CO2 [Moles/Vol] 28.0 mmol/L Normal 22.0-30.0 [facility] Comment on above: Performed By: #### B MP, CMP ####[facility] Lfvtvxeapa1030[address] [place], [place] [address]Dr. Anjali Reagan Creatinine [Mass/Vol] 1.23 mg/dL Normal 0.66-1.25 [facility] Comment on above: Performed By: #### B MP, CMP ####[facility] Gmskglykvm060[address] [place] [address]Dr. Anjali Reagan EGFR-AF MALTESE >60 Normal >=60 [facility] Comment on above: Performed By: #### B MP, CMP ####[facility] Rphdnhajqk6[address] [place] [address]Dr. Anjali Tez EGFR-NON AF MALTESE 59 mL/min/1.73m2 Critically low >=60 [facility] Comment on above: Performed By: #### B MP, CMP ####[facility] Kpxgkvkzol4174 [place] [id number]. Anjali Reagan Glucose [Mass/Vol] 109 mg/dL Critically high 74-106 [facility] Comment on above: Performed By: #### B MP, CMP ####[facility] Jaepsqjrxc9[address] [place] [address]Dr. Anjali Reagan Potassium [Moles/Vol] 3.9 mmol/L Normal 3.4-5.0 [facility] Comment on above: Performed By: #### B MP, CMP ####[facility] Yisyfszqwl3[address] [place] [address]Dr. Anjali Reagan Sodium [Moles/Vol] 136 mmol/L Critically low 137-[address] [facility] Comment on above: Performed By: #### B MP, CMP ####[facility] Ybkezusekc05[address] [place] [address]Dr. Anjali Reagan Urea nitrogen [Mass/Vol] 32.0 mg/dL Critically high 9.0-20 .0 [facility] Comment on above: Performed By: #### B MP, CMP ####[facility] Ehvoshxrhy1394[address] [place], [place] [address]Dr. Anjali Reagan Urea nitrogen/Creatinine [Mass ratio] 26.0 mg/mg Normal [facility] Comment on above: Performed By: #### B MP, CMP ####[facility] Lfekmeeiem8307[address] [place], [place] [address]Dr. Anjali Reagan VANCOMYCIN TROUGHon 02-12-20 21 VANCOMYCIN TROUGH 9.8 ug/ml Normal 5.0-20.0 [facility] Comment on above: Performed By: #### V ANCT ####[facility] Rhsuaowbpz[address] [place], [place] [address]Dr. Anjali Reagan XR ANKLE RT 2Von 02-11-2021 XR ANKLE RT 2V Normal [facility] XR FOOT RT MIN 3 VIEWSon XR FOOT RT MIN [address] [facility] CBC AUTO DIFFon 02-10-2021 BASO # 0.0 103/ul Normal 0.0-0.1 [facility] Comment on above: Performed By: #### C BC ####[facility] Mtrpzvckau[address] [place], [place] [address]Dr. Anjali Reagan Basophils/100 WBC (Bld) 0.3 % Normal 0.2-2.0 [facility] Comment on above: Performed By: #### C BC ####[facility] Ozavlztzvc6129[address] [place], [place] [address]Dr. Anjali Reagan EO # 0.2 103/ul Normal 0.0-0.7 [facility] Comment on above: Performed By: #### C BC ####[facility] Ylmbbihjke60[address] [place] [address]Dr. Anjali Reagan Eosinophils/100 WBC (Bld) 2.7 % Normal 0.9-7.0 [facility] Comment on above: Performed By: #### C BC ####[facility] Zeymytngmr0337[address] [place], [place] [address]Dr. Anjali Reagan Erythrocyte distribution width (RBC) [Ratio] 18.8 % Critically high 11.0-15.0 [facility] Comment on above: Performed By: #### C BC ####[facility] Bijkeqgwgg6555[address] [place], [place] [address]Dr. Biancaramona Reagan Hematocrit (Bld) [Volume fraction] 31.6 % Critically low 42.0-54.0 [facility] Comment on above: Performed By: #### C BC ####[facility] Blctbhlbij4[address] [place], [place] [address]Dr. Anjali Reagan Hemoglobin (Bld) [Mass/Vol] 9.6 g/dL Critically low 14.0-18.0 [facility] Comment on above: Performed By: #### C BC ####[facility] Kllijlbuyr[address]87[address] [place], [place] [address]Dr. Biancaramona Tez IG # 0.04 10e3/ul Critically high 0.00-0.03 [facility] Comment on above: Performed By: #### C BC ####[facility] Ejwtgnidqd5467[address] [place], [place] [address]Dr. Biancaramona Tze IG % 0.6 % Critically high 0.0-0.5 [facility] [place] [facility] Comment on above: Performed By: #### C BC ####[facility] Yhgfoymide[address]60[address] [place], [place] [address]Dr. Anjali Reagan LYMPH # 0.9 103/ul Critically low 1.2-3.8 [facility] Comment on above: Performed By: #### C BC ####[facility] Uioswagdov[address] [place], [place] [address]DrVeronica Reagan Lymphocytes/100 WBC (Bld) 12.2 % Critically low 20.5-60.0 [facility] Comment on above: Performed By: #### C BC ####[facility] Xysbmhhcrk4[address] [place] [address]DrVeronica Reagan MANUAL DIFF REQ NO Normal [facility] Comment on above: Performed By: #### C BC ####[facility] Limnfvozob6193 [place] [address]DrVeronica Reagan MCH (RBC) [Entitic mass] 24.7 pg Critically low 25.9-34 .0 [facility] Comment on above: Performed By: #### C BC ####[facility] Oobmebiaaf7[address] [place], [place] [address]DrVeronica Reagan MCHC (RBC) [Mass/Vol] 30.4 g/dL Normal 29.9-35.2 [facility] Comment on above: Performed By: #### C BC ####[facility] Bmtkuaacuk24[address] [place], [place] [address]DrVeronica Reagan MCV (RBC) [Entitic vol] 81.4 fL Normal 80.0-94.0 [facility] Comment on above: Performed By: #### C BC ####[facility] Ssaicxikrj6554[address] [place], [place] [address]DrVeronica Reagan MONO # 0.7 103/ul Normal 0.3-0.8 [facility] Comment on above: Performed By: #### C BC ####[facility] Cbaumbxhfh9088[address] [place], [place] [address]DrVeronica Reagan Monocytes/100 WBC (Bld) 9.9 % Normal 1.7-12.0 [facility] Comment on above: Performed By: #### C BC ####[facility] Cvcdrbrhgg1627[address] [place], [place] [address]DrVeronica Reagan NEUT # 5.3 103/ul Normal 1.4-6.5 [facility] Comment on above: Performed By: #### C BC ####[facility] Uoglprncfi[address] [place], [place] [address]DrVeronica Raegan Neutrophils/100 WBC (Bld) 74.3 % Normal 43.0-75.0 [facility] Comment on above: Performed By: #### C BC ####[facility] Ypbfhugehi035[address] [place] [address]Dr. Anjali Reagan Platelet mean volume (Bld) [Entitic vol] 9.6 fL Normal 9.5-13.5 [facility] Comment on above: Performed By: #### C BC ####[facility] Ipohnpfniu6[address] [place] [address]Dr. Anjali Reagan PLT 218 103/ul Normal 150-450 [facility] Comment on above: Performed By: #### C BC ####[facility] Nnkkbqgqrm7657 [place] [address]Dr. Anjali Reagan RBC 3.88 106/ul Critically low 4.70-6.10 [facility] Comment on above: Performed By: #### C BC ####[facility] Ggjgfneext36[address] [place] [address]Dr. Anjali Reagan WBC 7.1 103/ul Normal 4.0-11.0 [facility] Comment on above: Performed By: #### C BC ####[facility] Lbtmjbctcr[address] [place], [place] [address]DrVeronica Reagan POINT OF CARE GLUCOSEon 11 Glucose [Mass/Vol] 219 mg/dL Critically high 74-106 [facility] Comment on above: Performed By: #### P OCGLUC ####[facility] Smbkjbtdmo6264 [place] [address]DrVeronica Reagan Glucose [Mass/Vol] 136 mg/dL Critically high 74-106 [facility] Comment on above: Performed By: #### P OCGLUC ####[facility] Thekiknylc4[address] [place], [place] [address]DrVeronica Reagan Glucose [Mass/Vol] 119 mg/dL Critically high 74-106 [facility] Comment on above: Performed By: #### P OCGLUC ####[facility] Dhpyfuwiky4[address] [place], [place] [address]DrVeronica Reagan PROF 14(COMP METB)on 021 Albumin [Mass/Vol] 2.8 g/dL Critically low 3.5-5.0 [facility] Comment on above: Performed By: #### C ALEA, BMP ####[facility] Geqjqdawgc4231 [place], [place] [address]Ox. Anjali Reagan Albumin/Globulin [Mass ratio] 0.7 {ratio} Normal [facility] Comment on above: Performed By: #### C ALEA, BMP ####[facility] Kugbcxsbbl8921 [place] [id number]. Biancaramona Reagan ALP [Catalytic activity/Vol] 109 U/L Normal 38-126 [facility] Comment on above: Performed By: #### C ALEA, BMP ####[facility] Kbunvbrtvq9835 [place] [id number]. Anjali Reagan ALT [Catalytic activity/Vol] 23 U/L Normal 21-72 [facility] Comment on above: Performed By: #### C ALEA, BMP ####[facility] Tkqmoslhxq6217 [place] [id number]. Anjali Tez AST [Catalytic activity/Vol] 24 U/L Normal 17-59 [facility] Comment on above: Performed By: #### C ALEA, BMP ####[facility] Zhjzhtnhro0231 [place] [id number]. Anjali Reagan Bilirubin [Mass/Vol] 0.4 mg/dL Normal 0.2-1.3 [facility] Comment on above: Performed By: #### C ALEA, BMP ####[facility] Dyhtmdkygb7648 [place] [address]Dr. Anjali Reagan Globulin (S) [Mass/Vol] 4.1 g/dL Normal [facility] Comment on above: Performed By: #### C ALEA, BMP ####[facility] Yuletkcldm4530 [place] [id number]. Anjali Reagan Protein [Mass/Vol] 6.9 g/dL Normal 6.1-8.2 [facility] Comment on above: Performed By: #### Uzair COSBY, BMP ####[facility] Uzvgvlkwbq35[address] [place] [address]Dr. Anjali Reagan PROF CHEM 8 (BAS METB)on Anion gap [Moles/Vol] 13.0 mmol/L Normal [facility] Comment on above: Performed By: #### C MP, BMP ####[facility] Xbwghycsxa6919 [place] [address]Dr. Anjali Reagan Calcium [Mass/Vol] 9.4 mg/dL Normal 8.4-10.2 [facility] Comment on above: Performed By: #### C MP, BMP ####[facility] Jbgjudeqkf14[address] [place], [place] [address]Dr. Anjali Reagan Chloride [Moles/Vol] 104 mmol/L Normal 98-107 [facility] Comment on above: Performed By: #### C MP, BMP ####[facility] Gceiunxjhk5665[address] [place], [place] [address]Dr. Anjali Reagan CO2 [Moles/Vol] 27.7 mmol/L Normal 22.0-30.0 [facility] Comment on above: Performed By: #### C MP, BMP ####[facility] Ramsogbztg8148[address] [place], [place] [address]Dr. Anjali Reagan Creatinine [Mass/Vol] 1.19 mg/dL Normal 0.66-1.25 [facility] Comment on above: Performed By: #### C MP, BMP ####[facility] Ioejeizxhs7707[address] [place], [place] [address]Dr. Anjali Reagan EGFR-AF MALTESE >60 Normal >=60 [facility] Comment on above: Performed By: #### C MP, BMP ####[facility] Cftdyaycjq3592[address] [place], [place] [address]Dr. Anjali Reagan EGFR-NON AF MALTESE >60 Normal >=60 [facility] Comment on above: Performed By: #### C MP, BMP ####[facility] Kxmexousvv7336[address] [place], [place] [address]Dr. Anjali Reagan Glucose [Mass/Vol] 81 mg/dL Normal 74-106 [facility] Comment on above: Performed By: #### C MP, BMP ####[facility] Lqdgodcvlq7354 [place] [address]Dr. Anjali Reagan Potassium [Moles/Vol] 4.1 mmol/L Normal 3.4-5.0 [facility] Comment on above: Performed By: #### C MP, BMP ####[facility] Iabwzupxnk6[address] [place] [address]Dr. Anjali Reagan Sodium [Moles/Vol] 141 mmol/L Normal 137-145 [facility] Comment on above: Performed By: #### C MP, BMP ####[facility] Lorlurqzkc5127[address] [place], [place] [address]Dr. Anjail Reagan Urea nitrogen [Mass/Vol] 41.0 mg/dL Critically high 9.0-20 .0 [facility] Comment on above: Performed By: #### C ALEA, BMP ####[facility] Qoomhxpeba[address] [place], [place] [address]Dr. Anjali Reagan Urea nitrogen/Creatinine [Mass ratio] 34.4 mg/mg Normal [facility] Comment on above: Performed By: #### C ALEA, BMP ####[facility] Drrwwqskfu[address] [place], [place] [address]Dr. Anjali Reagan CBC W MANUAL DIFFon 02-10-20 21 ANISOCYTOSIS SLIGHT Normal [facility] Comment on above: Performed By: #### C SAUMYAMAN ####[facility] Asmqaqyucx44[address] [place], [place] [address]Dr. Anjali Reagan ATYPICAL LYMPH # Normal [facility] Comment on above: Performed By: #### C CORI ####[facility] Jufgyosovg[address] [place] [address]Dr. Anjali Reagan ATYPICAL LYMPH % Normal [facility] Comment on above: Performed By: #### C BCMAN ####[facility] Joxjjxqrwp60[address] [place], [place] [address]Dr. Anjali Reagan BAND # Normal 0.0-0.3 [facility] Comment on above: Performed By: #### C CORI ####[facility] Yhlelhdukx9[address] [place], [place] [address]Dr. Anjali Reagan BAND % Normal 0-5 [facility] Comment on above: Performed By: #### C BCFIONA ####[facility] Mlsuglaicm[address] [place] [address]Dr. Anjali Reagan BASOM # 0.00 103/ul Normal 0.00-0.10 [facility] Comment on above: Performed By: #### C BCFIONA ####[facility] Ktyhtmgulx3151 [place] [address]Dr. Anjali Reagan BASOM % 0.0 % Critically low 0.2-2.0 [facility] Comment on above: Performed By: #### C BCFIONA ####[facility] Vtbjzpvqxh3498 [place] [address]Dr. Anjali Reagan BLAST # Normal [facility] Comment on above: Performed By: #### C CORI ####[facility] Hmprwqitms[address] [place], [place] [address]Dr. Anjali Reagan BLAST % Normal [facility] Comment on above: Performed By: #### C BCFIONA ####[facility] Dmmvbpdgop9436 [place] [address]Dr. Anjali Reagan CORRECTED WBC Normal 4.0-11.0 [facility] Comment on above: Performed By: #### C BCFIONA ####[facility] Flxxgvvglt6760 [place] [address]Dr. Anjali Reagan EOS # 0.00 103/ul Normal 0.00-0.70 [facility] Comment on above: Performed By: #### C BCFIONA ####[facility] Pywfzohutz5100 [place] [address]Dr. Anjali Reagan EOS% 0.0 % Critically low 0.9-7.0 [facility] Comment on above: Performed By: #### C CORI ####[facility] Pmjkufnxll3[address] [place], [place] [address]Dr. Anjali Reagan HCT 31.1 % Critically low 42.0-54.0 [facility] Comment on above: Performed By: #### C BCFIONA ####[facility] Gwreglxhgb1212 [place], [place] [address]Ly. Anjali Reagan HGB 9.6 g/dl Critically low 14.0-18.0 [facility] Comment on above: Performed By: #### Uzair PERSAUD ####[facility] Wthwntvpos3536 [place], [place] [address]Rw. Anjali Reagan LYMPHM # 0.73 103/ul Critically low 1.20-3.80 [facility] [place] [facility] Comment on above: Performed By: #### Uzair PERSAUD ####[facility] Kvoietlbhd0252 [place] [id number]. Ajnali Reagan LYMPHM% 7.0 % Critically low 20.5-60.0 [facility] Comment on above: Performed By: #### Uzair PERSAUD ####[facility] Tvtwmjjgnz1974 [place] [id number]. Anjali Reagan MCH 25.1 pg Critically low 25.9-34.0 [facility] Comment on above: Performed By: #### Uzair PERSAUD ####[facility] Iobvvsccse3643 [place] [id number]. Anjali Reagan MCHC 30.9 g/dl Normal 29.9-35.2 [facility] Comment on above: Performed By: #### Uzair PERSAUD ####[facility] Dfpjpwygve4445 [place] [id number]. Anjali Reagan MCV 81.4 fL Normal 80.0-94.0 [facility] Comment on above: Performed By: #### Uzair PERSAUD ####[facility] Qbequyycpo4431 [place] [id number]. Anjali Reagan METAMYELOCYTE # Normal [facility] [place] [facility] Comment on above: Performed By: #### Uzair PERSAUD ####[facility] Yjxddixgkw2520 [place] [id number]. Anjali Reagan METAMYELOCYTE % Normal [facility] [place] [facility] Comment on above: Performed By: #### Uzair PERSAUD ####[facility] Knmwhvubhe6228 [place] [address]Dr. Anjali Reagan MONOM# 0.31 103/ul Normal 0.30-0.80 [facility] Comment on above: Performed By: #### C CORI ####[facility] Qhwizswxrj7066 [place] [id number]. Anjali Reagan MONOM% 3.0 % Normal 1.7-12.0 [facility] Comment on above: Performed By: #### C CORI ####[facility] Svzwuvbdpu9367 [place] [id number]. Anjali Reagan MPV 9.9 fL Normal 9.5-13.5 [facility] Comment on above: Performed By: #### C CORI ####[facility] Zukjviizej3435 [place] [id number]. Anjali Reagan MYELOCYTE # Normal [facility] Comment on above: Performed By: #### C CORI ####[facility] Skbpcycfey0481 [place] [address]Dr. Anjali Reagan MYELOCYTE % Normal [facility] Comment on above: Performed By: #### C CORI ####[facility] Hicuozzehw68[address] [place] [address]Dr. Anjali Reagan NRBC Normal [facility] Comment on above: Performed By: #### C CORI ####[facility] Mqouudcaee[address] [place], [place] [address]Dr. Anjali Reagan OVALOCYTES SLIGHT Normal [facility] Comment on above: Performed By: #### C CORI ####[facility] Nmlbuyynal2364 [place] [id number]. Anjali Reagan PLT 211 103/ul Normal 150-450 [facility] Comment on above: Performed By: #### C CORI ####[facility] Sjambdhuxw8765 [place] [id number]. Anjali Reagan POIKILOCYTOSIS SLIGHT Normal [facility] Comment on above: Performed By: #### C CORI ####[facility] Jsldtvzxyu5258 [place] [id number]. Anjali Reagan RBC 3.82 106/ul Critically low 4.70-6.10 [facility] [place] [facility] Comment on above: Performed By: #### C CORI ####[facility] Hlhqtlfzmk5077 [place], [place] [address]Ha. Anjali Reagan RDW 18.4 % Critically high 11.0-15.0 [facility] Comment on above: Performed By: #### C CORI ####[facility] [place] [address] [place], [place] [address]Qh. Anjali Reagan SEG # 9.36 103/ul Critically high 1.40-6.50 [facility] Comment on above: Performed By: #### C CORI ####[facility] Ayezhfslwp6299 [place], [place] [address]Nl. Anjali Reagan SEG % 90.0 % Critically high 43.0-75.0 [facility] [place] [facility] Comment on above: Performed By: #### C CORI ####[facility] Yfqehdciim8460 [place] [id number]. Anjali Reagan WBC 10.4 103/ul Normal 4.0-11.0 [facility] Comment on above: Performed By: #### Uzair PERSAUD ####[facility] Rwtglabmnj9833 [place], [place] [address]Ax. Anjali Reagan HEP B SURFACE ANTIGEN SCREEN on 02-09-2021 HBsAg Screen Negative Normal Negative [facility] Comment on above: Performed By: #### H BIANCANS ####[facility] Vbvfiudjcd8857 [place] [id number]. Anjali Reagan HEPATITIS C ANTIBODYon 02-09 Hep C Virus Ab <0.1 Normal 0.0-0.9 [facility] Comment on above: Result Comment: Nega tive: < 0.8 Indeterminate: 0.8 - 0.9 Positive: > 0.9 . The CDC recommends that a positive HCV antibody result be followed up with a HCV Nucleic Acid Amplification test (828763). Performed By: #### H CV ####[facility] Fwqwklkncf5951 [place] [id number]. Anjali Reagan HIV 1 AND 2 WITH REFLEXon HIV Screen 4th Generation wRfx Non-Reactive Normal Non Reactive [facility] Comment on above: Performed By: #### H IV12 ####[facility] Gfrnpzxyby[address] [place] [address]Dr. Anjali Reagan POINT OF CARE GLUCOSEon 01-31 Glucose [Mass/Vol] 170 mg/dL Critically high -106 [facility] Comment on above: Performed By: #### P OCGLUC ####[facility] Yfbxickniz2195 [place] [id number]. Anjali Reagan Glucose [Mass/Vol] 265 mg/dL Critically high -106 [facility] Comment on above: Performed By: #### P OCGLUC ####[facility] Kqhpsaagvx7024 [place] [address]Dr. Anjali Reagan Glucose [Mass/Vol] 319 mg/dL Critically high -106 [facility] Comment on above: Performed By: #### P OCGLUC ####[facility] Bepkjxaxde01[address] [place] [address]Dr. Anjali Reagan PROF 14(COMP METB)on 021 Albumin [Mass/Vol] 2.8 g/dL Critically low 3.5-5.[address] [facility] Comment on above: Performed By: #### C MP ####[facility] Vribtebotu2046 [place] [address]Dr. Anjali Reagan Albumin/Globulin [Mass ratio] 0.7 {ratio} Normal [facility] Comment on above: Performed By: #### C MP ####[facility] Caqfawmnzy3606 [place] [address]Dr. Anjali Reagan ALP [Catalytic activity/Vol] 117 U/L Normal 38-126 [facility] Comment on above: Performed By: #### C MP ####[facility] Nkpfetbimo1831 [place] [address]Dr. Anjali Reagan ALT [Catalytic activity/Vol] 21 U/L Normal 21-72 [facility] Comment on above: Performed By: #### C MP ####[facility] Hxthtjapdl5128 [place] [address]Dr. Anjali Reagan Anion gap [Moles/Vol] 13.0 mmol/L Normal [facility] Comment on above: Performed By: #### C MP ####[facility] Dnquzjzvad0028 [place] [id number]. Anjali Reagan AST [Catalytic activity/Vol] 21 U/L Normal 17-59 [facility] Comment on above: Performed By: #### C MP ####[facility] Fnyovduvhs5874 [place] [address]Dr. Anjali Reagan Bilirubin [Mass/Vol] 0.5 mg/dL Normal 0.2-1.3 [facility] Comment on above: Performed By: #### C MP ####[facility] Ttmldyygwo2866 [place] [phone]. Anjali Reagan Calcium [Mass/Vol] 9.3 mg/dL Normal 8.4-10.2 [facility] Comment on above: Performed By: #### C MP ####[facility] [address]ivucemoq[address] [place], [place] [address]Dr. Anjali Reagan Chloride [Moles/Vol] 100 mmol/L Normal 98-107 [facility] Comment on above: Performed By: #### C MP ####[facility] Ddcfsloimc[address] [place], [place] [address]Dr. Anjali Reagan CO2 [Moles/Vol] 27.5 mmol/L Normal 22.0-30.0 [facility] Comment on above: Performed By: #### C MP ####[facility] Ayojctncsj1720 [place] [phone]. Anjali Reagan Creatinine [Mass/Vol] 1.49 mg/dL Critically high 0.66-1.25 [facility] Comment on above: Performed By: #### C MP ####[facility] Weheclcawi4038 [place] [phone]. Anjali Reagan EGFR-AF MALTESE 58 mL/min/1.73m2 Critically low >=60 [facility] Comment on above: Performed By: #### C MP ####[facility] Xmomuskqbn5093 [place] [phone]. Anjali Tez EGFR-NON AF MALTESE 48 mL/min/1.73m2 Critically low >=60 [facility] Comment on above: Performed By: #### C MP ####[facility] Ooflwqoehu5391 [place] [address]Dr. Anjali Reagan Globulin (S) [Mass/Vol] 4.2 g/dL Normal [facility] Comment on above: Performed By: #### C MP ####[facility] Pqdwnkjdkb4382 [place] [phone]. Anjali Reagan Glucose [Mass/Vol] 276 mg/dL Critically high 74-106 [facility] Comment on above: Performed By: #### C MP ####[facility] Lhnynlwjnu3078 [place] [phone]. Anjali Reagan Potassium [Moles/Vol] 4.5 mmol/L Normal 3.4-5.0 [facility] Comment on above: Performed By: #### C MP ####[facility] Ndatbyavwt1849 [place] [address]Dr. Anjali Reagan Protein [Mass/Vol] 7.0 g/dL Normal 6.1-8.2 [facility] Comment on above: Performed By: #### C MP ####[facility] Sadsdpsgjh7581 [place] [address]Dr. Anjali Reagan Sodium [Moles/Vol] 136 mmol/L Critically low 137-[address] [facility] Comment on above: Performed By: #### C MP ####[facility] Vweqwcpqoi4762 [place] [address]Dr. Anjali Reagan Urea nitrogen [Mass/Vol] 42.0 mg/dL Critically high 9.0-20 .0 [facility] Comment on above: Performed By: #### C MP ####[facility] Lpzcveyyhe5270 [place] [address]Dr. Anjali Reagan Urea nitrogen/Creatinine [Mass ratio] 28.2 mg/mg Normal [facility] Comment on above: Performed By: #### C MP ####[facility] Hzyowjmuvl8773 [place] [address]Dr. Anjali Tez RPR QUANTon 02-09-2021 Rapid Plasma Reagin, Quant Non-Reactive Normal NonRea<1:1 [facility] Comment on above: Performed By: #### R PRQ ####[facility] Ncyvsrekkq[address] [place] [address]Dr. Anjali Reagan XR ANKLE RT 2Von 02-09-2021 XR ANKLE RT 2V Normal [facility] XR TIB_FIB RT 2Von 1 XR TIB_FIB RT 2V Normal [facility] CRPon 02-08-2021 CRP 3.2 mg/dL Critically high <=1.0 [facility] [place] [facility] Comment on above: Performed By: #### C RP ####[facility] Ypjfonvlph[address] [place], [place] [address]Dr. Biancaramona Reagan CULTURE ANAEROBICon 02-09-20 21 CULTURE ANAEROBIC Specimen Comments: RIGHT FOOT IRRIGATION SWAB Culture Observations: NO GROWTH AT 72 HRS Normal [facility] Comment on above: Performed By: #### A NACX ####[facility] [address]prqnaovab[address] [place], [place] [address]Dr. Yilan Reagan CULTURE ANAEROBIC Specimen Comments: RIGHT LEG REAMINGS Culture Observations: NO GROWTH OF ANAEROBES AT 72 HOURS. Normal [facility] Comment on above: Performed By: #### A NACX ####[facility] Qlgqgycseb[address] [place], [place] [address]Dr. Yilan Reagan CULTURE ANAEROBIC Culture Observations : NO GROWTH AT 72 HRS Normal [facility] Comment on above: Performed By: #### A NACX ####[facility] Resxrhqdzi9881 [place] [phone]. Yilan Reagan CULTURE ANAEROBIC Specimen Comments: RIGHT TIBIA BONE Culture Observations: NO GROWTH AT 72 HRS Normal [facility] Comment on above: Performed By: #### A NACX ####[facility] Uhblbipdap9465 [place] [phone]. Yilan Reagan CULTURE ANAEROBIC Specimen Comments: RIGHT CALCANEOUS BONE Culture Observations: NO GROWTH OF ANAEROBES AT 72 HOURS. Normal [facility] Comment on above: Performed By: #### A NACX ####[facility] K[address]aykvgbzh[address] [place], [place] [address]Dr. Yilan Reagan CULTURE ANAEROBIC Specimen Comments: RIGHT ANKLE ABSCESS Culture Observations: NO GROWTH AT 72 HRS Normal [facility] Comment on above: Performed By: #### A NACX ####[facility] Uyzdrawsca[address] [place], [place] [address]Dr. Anjali Reagan CULTURE OTHERon 02-08-2021 CULTURE OTHER Specimen Comments: RIGHT LEG REAMINGS Culture Observations: NORMAL SKIN ARELI. Normal [facility] Comment on above: Performed By: #### O THCX ####[facility] Yubqamkhaz[address] [place], [place] [address]Dr. Yilan Reagan CULTURE OTHER Specimen Comments: RIGHT FOOT IRRIGATION SWAB Culture Observations: NO GROWTH AT 72 HRS [facility] Comment on above: Performed By: #### O THCX ####[facility] [address]wzuh[address] [place], [place] [address]Dr. Yilan Reagan CULTURE OTHER Specimen Comments: RIGHT CALCANEOUS BONE Culture Observations: NORMAL SKIN ARELI. Normal [facility] Comment on above: Performed By: #### O THCX ####[facility] Nyrljydgmw[address] [place], [place] [address]Dr. Yilan Reagan CULTURE OTHER Specimen Comments: RIGHT TIBIA BONE Culture Observations: NO GROWTH AT 72 HRS [facility] Comment on above: Performed By: #### O THCX ####[facility] Uldcnwebjs[address] [place], [place] [address]Dr. Yiramona Reagan CULTURE OTHER Specimen Comments: RIGHT TALUS BONE Culture Observations: NORMAL SKIN ARELI. Normal [facility] Comment on above: Performed By: #### O THCX ####[facility] Mzdmuatuda9[address] [place], [place] [address]Dr. Yilan Reagan CULTURE OTHER Specimen Comments: RIGHT ANKLE ABSCESS Culture Observations: NO GROWTH AT 72 HRS [facility] Comment on above: Performed By: #### O THCX ####[facility] Ynnzkvrnlk[address] [place], [place] [address]Dr. Anjali Reagan GRAM STAINon 02-08-2021 COMMENTS NO ORGANISMS OBSERVED [facility] Comment on above: Performed By: #### G STAIN ####[facility] Ucjhjtgpvl[address] [place], [place] [address]Dr. Yilan Reagan DIPHTHEROIDS Normal [facility] Comment on above: Performed By: #### G STAIN ####[facility] Dutzfmytij9251 [place] [address]Dr. Anjali Reagan EPITHELIALS Normal [facility] Comment on above: Performed By: #### G STAIN ####[facility] Unnchuoqbp4088 [place] [address]Dr. Anjali Reagan FUNGAL ELEMENTS Normal [facility] [place] [facility] Comment on above: Performed By: #### G STAIN ####[facility] Zkmsfzndnj7420 [place] [address]Dr. Anjali Reagan GRAM NEG BACILLI Normal [facility] Comment on above: Performed By: #### G STAIN ####[facility] Lldvuphclo[address] [place], [place] [address]Dr. Anjali Reagan GRAM NEG DIPPLOCOCCI Normal [facility] Comment on above: Performed By: #### G STAIN ####[facility] Aahkujaegv[address] [place], [place] [address]Dr. Anjali Reagan GRAM POS BACILLI Normal [facility] Comment on above: Performed By: #### G STAIN ####[facility] Lxmpzkehyd[address] [place], [place] [address]Dr. Anjali Reagan GRAM POSITIVE COCCI Normal [facility] Comment on above: Performed By: #### G STAIN ####[facility] Oyvxhvggzi[address] [place], [place] [address]Dr. Anjali Reagan GRAM STAIN SOURCE RIGHT LEG REAMINGS Normal [facility] Comment on above: Performed By: #### G STAIN ####[facility] Vzdpxialea8416 [place] [address]Dr. Anjali Reagan GRAM STAIN SOURCE RIGHT FOOT POST IRRIGATION SWAB Normal [facility] Comment on above: Performed By: #### G STAIN ####[facility] Fxlwbkwynz[address] [place], [place] [address]Dr. Anjali Reagan GS_DIPTH Normal [facility] Comment on above: Performed By: #### G STAIN ####[facility] Nrkbczkkfz[address] [place], [place] [address]Dr. Anjali Reagan WBC MODERATE Normal [facility] Comment on above: Performed By: #### G STAIN ####[facility] Jenlqgqeje9967 [place] [phone]. Anjali Reagan WBC NONE SEEN Normal [facility] Comment on above: Performed By: #### G STAIN ####[facility] Imwoozbpii4688 [place] [phone]. Anjali Reagan COMMENTS NO ORGANISMS OBSERVED Normal [facility] Comment on above: Performed By: #### G STAIN ####[facility] Tycbqltxhk1936 [place] [address]Dr. Anjali Reagan DIPHTHEROIDS Normal [facility] Comment on above: Performed By: #### G STAIN ####[facility] Esogagcwxc[address] [place], [place] [address]Dr. Anjali Reagan EPITHELIALS Normal [facility] Comment on above: Performed By: #### G STAIN ####[facility] Pmczgcbwkr[address] [place], [place] [address]Dr. Anjali Reagan FUNGAL ELEMENTS Normal [facility] [place] [facility] Comment on above: Performed By: #### G STAIN ####[facility] Brfzfwcbht7135 [place] [address]Dr. Anjali Reagan GRAM NEG BACILLI Normal [facility] Comment on above: Performed By: #### G STAIN ####[facility] Qtjomwwnwv3522 [place] [address]Dr. Anjali Reagan GRAM NEG DIPPLOCOCCI Normal [facility] Comment on above: Performed By: #### G STAIN ####[facility] Jfzrzvrlka9324 [place] [address]Dr. Anjali Reagan GRAM POS BACILLI Normal [facility] Comment on above: Performed By: #### G STAIN ####[facility] Pmyarzoisu8727 [place] [address]Dr. Anjali Reagan GRAM POSITIVE COCCI Normal [facility] Comment on above: Performed By: #### G STAIN ####[facility] Ukfbllvbny4401 [place] [address]Dr. Anjali Reagan GRAM STAIN SOURCE RIGHT TIBIA BONE Normal [facility] Comment on above: Performed By: #### G STAIN ####[facility] Lfugkbegog8107 [place] [phone]. Anjali Reagan GRAM STAIN SOURCE RIGHT CALCANEOUS BONE Normal [facility] Comment on above: Performed By: #### G STAIN ####[facility] Vwuqmpcbzk3501 [place] [address]Dr. Anjali Reagan GRAM STAIN SOURCE RIGHT TALUS BONE Normal [facility] Comment on above: Performed By: #### G STAIN ####[facility] Jdazrxgnqq7674 [place] [address]Dr. Anjali Reagan GS_DIPTH Normal [facility] Comment on above: Performed By: #### G STAIN ####[facility] Uaxxlmsqay8996 [place] [address]Dr. Anjali Raegan WBC NONE SEEN Normal [facility] Comment on above: Performed By: #### G STAIN ####[facility] Vpmcpwphdw1955 [place] [address]Dr. Anjali Reagan WBC FEW Normal [facility] Comment on above: Performed By: #### G STAIN ####[facility] Rjcqacskxb2940 [place] [address]Dr. Anjali Reagan COMMENTS NO ORGANISMS OBSERVED Normal [facility] Comment on above: Performed By: #### G STAIN ####[facility] Jeuffkvliw6658 [place] [address]Dr. Anjali Reagan DIPHTHEROIDS Normal [facility] Comment on above: Performed By: #### G STAIN ####[facility] Twtvzyckyk6184 [place] [address]Dr. Anjali Reagan EPITHELIALS Normal [facility] Comment on above: Performed By: #### G STAIN ####[facility] Xwfgxbaaai9531 [place] [address]Dr. Anjali Reagan FUNGAL ELEMENTS Normal [facility] [place] [facility] Comment on above: Performed By: #### G STAIN ####[facility] Tnnmbynsng3978 [place] [address]Dr. Anjali Reagan GRAM NEG BACILLI Normal [facility] Comment on above: Performed By: #### G STAIN ####[facility] Axqdusnvyg4129 [place] [id number]. Anjali Reagan GRAM NEG DIPPLOCOCCI Normal [facility] Comment on above: Performed By: #### G STAIN ####[facility] Pbrltcvnqx1442 [place] [address]Dr. Anjali Reagan GRAM POS BACILLI Normal [facility] Comment on above: Performed By: #### G STAIN ####[facility] Bnhvbnbktn7797 [place] [id number]. Anjali Reagan GRAM POSITIVE COCCI Normal [facility] Comment on above: Performed By: #### G STAIN ####[facility] Zueoonccku[address] [place], [place] [address]Dr. Anjali Reagan GRAM STAIN SOURCE RIGHT FOOT ABSCESS SWAB Normal [facility] Comment on above: Performed By: #### G STAIN ####[facility] Fqgyhlleer[address] [place], [place] [address]Dr. Anjali Reagan GS_DIPTH Normal [facility] Comment on above: Performed By: #### G STAIN ####[facility] Aoxlonkcps[address] [place], [place] [address]Dr. Anjali Reagan WBC RARE Normal [facility] Comment on above: Performed By: #### G STAIN ####[facility] Vvvddeszua[address] [place], [place] [address]Dr. Anajli Reagan HIV 1/2 RAPID (EXPOSURE ONLY )on 02-08-2021 HIV AB Negative [facility] Comment on above: Performed By: #### R PDHIV ####[facility] Wrkwuyurlp[address] [place], [place] [address]Dr. Anjali Reagan HIV AG Negative Normal [facility] Comment on above: Performed By: #### R PDHIV ####[facility] Kladzbceak39[address] [place], [place] [address]Dr. Anjali Reagan INTERNAL CONTROLS Within Normal Limits Normal Wi thin Normal Limits [facility] Comment on above: Performed By: #### R PDHIV ####[facility] Hrhxltahwh24[address] [place], [place] [address]Dr. Anjali Reagan RAPID HIV INFO SEE BELOW Normal [facility] Comment on above: Result Comment: This test is used for the initial screening of the exposure source. Confirmation of all results will be obtained through reference lab testing. Performed By: #### R PDHIV ####[facility] Iergcnmrgk[address] [place], [place] [address]Dr. Anjali Reagan POINT OF CARE GLUCOSEon 11-0 Glucose [Mass/Vol] 400 mg/dL Critically high 74-106 [facility] Comment on above: Performed By: #### P OCGLUC ####[facility] Mlicxepgcf68[address] [place], [place] [address]Dr. Anjali Reagan Glucose [Mass/Vol] 373 mg/dL Critically high -106 [facility] Comment on above: Performed By: #### P OCGLUC ####[facility] Bzsmacqswz8[address] [place], [place] [address]Dr. Anjali Reagan Glucose [Mass/Vol] 159 mg/dL Critically high -106 [facility] Comment on above: Performed By: #### P OCGLUC ####[facility] Rjqjshqlch[address] [place], [place] [address]Dr. Anjali Reagan Glucose [Mass/Vol] 160 mg/dL Critically high -106 [facility] Comment on above: Performed By: #### P OCGLUC ####[facility] Yyoryevrnu34[address] [place], [place] [address]Dr. Anjali Reagan SED RATE WESTERGRENon 2020 SED RATE 51 mm/hr Critically high <=20 [facility] Comment on above: Performed By: #### S EDR ####[facility] Faueosohea6[address] [place], [place] [address]Dr. Anjali Reagan CBC W MANUAL DIFFon 02-06-20 21 ATYPICAL LYMPH # Normal [facility] Comment on above: Performed By: #### C BCMAN ####[facility] Iimvjlpvoz94[address] [place], [place] [address]Dr. Anjali Tez ATYPICAL LYMPH % Normal [facility] Comment on above: Performed By: #### C BCMAN ####[facility] Bxfobbomrs[address] [place], [place] [address]Dr. Anjali Reagan BAND # 0.2 103/ul Normal 0.0-0.3 [facility] Comment on above: Performed By: #### C BCMAN ####[facility] Ydbeofigbx4185 [place] [address]Dr. Anjali Reagan BAND % 3 % Normal 0-5 [facility] Comment on above: Performed By: #### C BCMAN ####[facility] Lpbirvtfqh8672 [place] [address]Dr. Anjali Reagan BASOM # 0.07 103/ul Normal 0.00-0.10 [facility] Comment on above: Performed By: #### C BCFIONA ####[facility] Zeoumxzrde7961 [place] [address]Dr. Anjali Reagan BASOM % 1.0 % Normal 0.2-2.0 [facility] Comment on above: Performed By: #### C CORI ####[facility] Vzkaadzihc2909 [place] [address]Dr. Anjali Reagan BLAST # Normal [facility] Comment on above: Performed By: #### C CORI ####[facility] Iydnbzodhd6975 [place] [address]Dr. Anjali Reagan BLAST % Normal [facility] Comment on above: Performed By: #### C BCFIONA ####[facility] Ppnmnyltfu1326 [place] [id number]. Anjali Reagan CORRECTED WBC Normal 4.0-11.0 [facility] Comment on above: Performed By: #### C BCFIONA ####[facility] Myofymswmv2135 [place] [address]Dr. Anjali Reagan EOS # 0.57 103/ul Normal 0.00-0.70 [facility] Comment on above: Performed By: #### C BCFIONA ####[facility] Ncdeqocisw4808 [place] [address]Dr. Anjali Reagan EOS% 8.0 % Critically high 0.9-7.0 [facility] Comment on above: Performed By: #### C CORI ####[facility] Vxxwljvfpx[address] [place], [place] [address]Dr. Anjali Reagan HCT 32.9 % Critically low 42.0-54.0 [facility] Comment on above: Performed By: #### C CORI ####[facility] Kqpjcmwxzc4151 [place] [id number]. Anjali Reagan HGB 10.2 g/dl Critically low 14.0-18.0 [facility] Comment on above: Performed By: #### C CORI ####[facility] Aatioeegwo3366 [place] [address]Dr. Anjali Reagan LYMPHM # 0.78 103/ul Critically low 1.20-3.80 [facility] Comment on above: Performed By: #### C CORI ####[facility] Aiakhwhoog7[address] [place], [place] [address]Dr. Anjali Reagan LYMPHM% 11.0 % Critically low 20.5-60.0 [facility] Comment on above: Performed By: #### C CORI ####[facility] Iudpexezgb[address] [place], [place] [address]Dr. Anjali Reagan MCH 24.9 pg Critically low 25.9-34.0 [facility] Comment on above: Performed By: #### Uzair PERSAUD ####[facility] Tguwdzagis[address] [place], [place] [address]Dr. Anjali Reagan MCHC 31.0 g/dl Normal 29.9-35.2 [facility] Comment on above: Performed By: #### zUair PERSAUD ####[facility] Tzlimsqkmn[address] [place], [place] [address]Dr. Anjali Reagan MCV 80.4 fL Normal 80.0-94.0 [facility] Comment on above: Performed By: #### C CORI ####[facility] Kpyvorwxib7[address] [place], [place] [address]Dr. Anjali Reagan METAMYELOCYTE # Normal [facility] Comment on above: Performed By: #### C CORI ####[facility] Qlxrlvrubw[address] [place], [place] [address]Dr. Anjali Reagan METAMYELOCYTE % Normal [facility] Comment on above: Performed By: #### C CORI ####[facility] Abazkqrbgl1757 [place] [id number]. Anjali Reagan MONOM# 0.57 103/ul Normal 0.30-0.80 [facility] Comment on above: Performed By: #### C CORI ####[facility] Mopkxzrztr5702 [place] [id number]. Anjali Reagan MONOM% 8.0 % Normal 1.7-12.0 [facility] Comment on above: Performed By: #### C CORI ####[facility] Udkpbpgnyb3591 [place] [id number]. Anjali Reagan MPV 9.2 fL Critically low 9.5-13.5 [facility] Comment on above: Performed By: #### Uzair PERSAUD ####[facility] Zofhbqzmnk[address] [place], [place] [address]Dr. Anjali Reagan MYELOCYTE # Normal [facility] Comment on above: Performed By: #### Uzair PERSAUD ####[facility] [address]unbzjowba[address] [place], [place] [address]Dr. Anjali Reagan MYELOCYTE % Normal [facility] Comment on above: Performed By: #### Uzair PERSAUD ####[facility] [address]wlulygoes[address] [place], [place] [address]Dr. Anjali Reagan NRBC Normal [facility] Comment on above: Performed By: #### Uzair PERSAUD ####[facility] Cugnlreopy[address] [place] [address]Dr. Anjali Reagan OVALOCYTES 1+ Normal [facility] Comment on above: Performed By: #### C CORI ####[facility] Siicgl[address]rcx[address] [place], [place] [address]Dr. Anjali Reagan PLT 209 103/ul Normal 150-450 [facility] Comment on above: Performed By: #### C CORI ####[facility] [address]qwpektq[address] [place], [place] [id number]. Anjali Reagan RBC 4.09 106/ul Critically low 4.70-6.10 The [facility] [place] [facility] Comment on above: Performed By: #### C CORI ####[facility] Ffrmbmfsiw6385 [place], [place] [address]On. Anjali Reagan RDW 18.2 % Critically high 11.0-15.0 [facility] [place] [facility] Comment on above: Performed By: #### C CORI ####[facility] Ltbqwmsvxr4010 [place], [place] [address]Ky. Anjali Reagan SEG # 4.90 103/ul Normal 1.40-6.50 [facility] Comment on above: Performed By: #### C CORI ####[facility] Gzfxscehyz9117 [place], [place] [address]Zp. Anjali Reagan SEG % 69.0 % Normal 43.0-75.0 [facility] Comment on above: Performed By: #### C CORI ####[facility] Tsgjmytfan3958 [place], [place] [address]Gm. Anjali Reagan WBC 7.1 103/ul Normal 4.0-11.0 [facility] Comment on above: Performed By: #### Uzair PERSAUD ####[facility] Oiizyjvwfm0155 [place], [place] [address]Pv. Anjali Reagan CT ABD/PELVIS WO CONon 02-05 CT ABD/PELVIS WO CON Normal [facility] Covid-19 PCR ([facility])on SARS-CoV-2 (COVID-19) RNA MEREDITH+probe Ql (Unsp spec) Not detected Normal NOT DETECTED [facility] Comment on above: Result Comment: This test is not yet approved or cleared by the [place] FDA. When there are no FDA-approved or cleared tests available, and other criteria are met, FDA can make tests available under an emergency access mechanism called an Emergency Use Authorization (EUA). The EUA for this test is supported by the Mechanical Piping Designer of Health and Human Service's (HHS's) declaration [...] symptomsconsistent with SARS-CoV-2. Performed By: #### C [facility] ####[facility] Fubxbhjsfd9[address] [place], [place] [address]Dr. Anjali Reagan ER URINE PROFILEon 1 Bilirubin Ql (U) Negative Normal NEGATIVE The [facility] Comment on above: Performed By: #### E RUR ####[facility] Nqakufruih[address] [place], [place] [address]Dr. Biancalan Reagan Clarity (U) CLEAR Normal CLEAR [facility] Comment on above: Performed By: #### E RUR ####[facility] Ooxvlpfdpy9[address] [place], [place] [address]Dr. Yilan Reagan Color (U) LT. YELLOW Normal YELLOW [facility] Comment on above: Performed By: #### E RUR ####[facility] Ftfzgqqtac[address] [place], [place] [address]Dr. Anjali Reagan ERUAHD A micrscopic examination will be performed if indicated. Normal [facility] Comment on above: Performed By: #### E RUR ####[facility] Riyanrzlfg[address] [place], [place] [address]Dr. Yilan Reagan Glucose Ql (U) Negative Normal NEGATIVE The [facility] Comment on above: Performed By: #### E RUR ####[facility] Hpslnhzmoj30[address] [place], [place] [address]Dr. Yilan Reagan Hemoglobin Ql (U) Negative Normal NEGATIVE The [facility] Comment on above: Performed By: #### E RUR ####[facility] Hkgoctcoes7689[address] [place], [place] [address]Dr. Yilan Reagan Ketones Ql (U) Negative Normal NEGATIVE The [facility] Comment on above: Performed By: #### E RUR ####[facility] Zhoodcizwj3056[address] [place], [place] [address]Dr. Yilan Reagan LEUKOCYTES Negative Normal NEGATIVE [facility] Comment on above: Performed By: #### E RUR ####[facility] [address]ou[address] [place] [address]Dr. Anjali Reagan Nitrite Ql (U) Negative Normal NEGATIVE The [facility] Comment on above: Performed By: #### E RUR ####[facility] Wojvrphxsm5114 [place] [address]Dr. Anjali Reagan pH (U) 6.0 [pH] Normal 5-9 [facility] Comment on above: Performed By: #### E RUR ####[facility] Tnriumqoei9619[address] [place], [place] [address]Dr. Anjali Reagan SPEC GRAVITY 1.015 Normal 1.005-<=1.0 25 [facility] Comment on above: Performed By: #### E RUR ####[facility] Yjoaojjwzk7[address] [place], [place] [address]Dr. Anjali Reagan UA PROTEIN TRACE Normal NEGATIVE/ TRACE [facility] Comment on above: Performed By: #### E RUR ####[facility] Pbbhhgkhwe8[address] [place], [place] [address]Dr. Anjali Reagan UR MICRO IND NOT INDICATED Normal [facility] Comment on above: Performed By: #### E RUR ####[facility] Yggtipibkp9017[address] [place], [place] [address]Dr. Anjali Reagan Urobilinogen Qn (U) 0.2 {Geremias'U}/dL Normal 0.2 - 1. 0 [facility] Comment on above: Performed By: #### E RUR ####[facility] Kdbimatyfo11[address] [place], [place] [address]Dr. Anjali Reagan PROF 14(COMP METB)on 021 Albumin [Mass/Vol] 2.8 g/dL Critically low 3.5-5.0 [facility] Comment on above: Performed By: #### C MP ####[facility] Vfhfhowyls[address] [place], [place] [address]Dr. Anjali Reagan Albumin/Globulin [Mass ratio] 0.6 {ratio} Normal [facility] Comment on above: Performed By: #### C MP ####[facility] [address]vhah[address] [place] [id number]. Anjali Reagan ALP [Catalytic activity/Vol] 125 U/L Normal 38-126 [facility] Comment on above: Performed By: #### C MP ####[facility] Qauelrqbwh3453 [place] [address]Dr. Anjali Reagan ALT [Catalytic activity/Vol] 22 U/L Normal 21-72 [facility] Comment on above: Performed By: #### C MP ####[facility] Tgcjnqxygj18[address] [place], [place] [address]Dr. Anjali Reagan Anion gap [Moles/Vol] 13.1 mmol/L Normal e [facility] Comment on above: Performed By: #### C MP ####[facility] Mwaykcnbtz[address] [place], [place] [address]Dr. Anjali Reagan AST [Catalytic activity/Vol] 26 U/L Normal 17-59 [facility] Comment on above: Performed By: #### C MP ####[facility] Iqgxvetdio27[address] [place], [place] [address]Dr. Anjali Reagan Bilirubin [Mass/Vol] 0.8 mg/dL Normal 0.2-1.3 [facility] Comment on above: Performed By: #### C MP ####[facility] Ctaalhftch[address] [place], [place] [address]Dr. Anjali Reagan Calcium [Mass/Vol] 9.2 mg/dL Normal 8.4-10.2 The [facility] Comment on above: Performed By: #### C MP ####[facility] Anngcfoofv[address] [place], [place] [address]Dr. Anjali Tez Chloride [Moles/Vol] 98 mmol/L Normal 98-107 [facility] Comment on above: Performed By: #### C MP ####[facility] Glqctjsjpb[address] [place], [place] [address]Dr. Anjali Reagan CO2 [Moles/Vol] 28.7 mmol/L Normal 22.0-30.0 [facility] Comment on above: Performed By: #### C MP ####[facility] Qvhzvynmyb9434[address] [place], [place] [address]Dr. Anjali Reagan Creatinine [Mass/Vol] 1.62 mg/dL Critically high 0.66-1.25 [facility] Comment on above: Performed By: #### C MP ####[facility] Fhslyobupl[address] [place] [address]Dr. Anjali Reagan EGFR-AF MALTESE 52 mL/min/1.73m2 Critically low >=60 [facility] Comment on above: Performed By: #### C MP ####[facility] [address]ragqbrw[address] [place] [address]Dr. Anjali Reagan EGFR-NON AF MALTESE 43 mL/min/1.73m2 Critically low >=60 [facility] Comment on above: Performed By: #### C MP ####[facility] Dqdvxvbuou9[address] [place] [address]Dr. Anjali Reagan Globulin (S) [Mass/Vol] 4.6 g/dL Normal [facility] Comment on above: Performed By: #### C MP ####[facility] Dsslutinyz6572 [place] [address]Dr. Anjali Reagan Glucose [Mass/Vol] 192 mg/dL Critically high 74-106 [facility] Comment on above: Performed By: #### C MP ####[facility] Ccehvwhisw[address] [place], [place] [address]Dr. Anjali Reagan Potassium [Moles/Vol] 4.8 mmol/L Normal 3.4-5.0 [facility] Comment on above: Performed By: #### C MP ####[facility] Qiboruxsoa[address] [place] [address]Dr. Anjali Tez Protein [Mass/Vol] 7.4 g/dL Normal 6.1-8.2 [facility] Comment on above: Performed By: #### C MP ####[facility] Zqpbfdsqri[address] [place], [place] [address]Dr. Anjali Reagan Sodium [Moles/Vol] 135 mmol/L Critically low 137-[address] [facility] Comment on above: Performed By: #### C MP ####[facility] M[address]ervvaj[address] [place], [place] [address]Dr. Anjali Reagan Urea nitrogen [Mass/Vol] 40.0 mg/dL Critically high 9.0-20 .0 [facility] Comment on above: Performed By: #### C MP ####[facility] Ocnzxidvhk[address] [place], [place] [address]Dr. Anjali Reagan Urea nitrogen/Creatinine [Mass ratio] 24.7 mg/mg Normal [facility] Comment on above: Performed By: #### C MP ####[facility] Vnqtqfltmq54[address] [place], [place] [address]Dr. Anjali Reagan PROF CHEM 8 (BAS METB)on Anion gap [Moles/Vol] 13.4 mmol/L Normal [facility] Comment on above: Performed By: #### B MP ####[facility] Hvhurfwaej[address] [place], [place] [address]Dr. Anjali Reagan Calcium [Mass/Vol] 9.3 mg/dL Normal 8.4-10.2 [facility] Comment on above: Performed By: #### B MP ####[facility] Aszrarzxpk[address] [place], [place] [address]Dr. Anjali Reagan Chloride [Moles/Vol] 98 mmol/L Normal 98-107 [facility] Comment on above: Performed By: #### B MP ####[facility] Yivtzwavpk[address] [place], [place] [address]Dr. Anjali Reagan CO2 [Moles/Vol] 28.8 mmol/L Normal 22.0-30.0 [facility] Comment on above: Performed By: #### B MP ####[facility] Brqaocgotq2[address] [place], [place] [address]Dr. Anjali Reagan Creatinine [Mass/Vol] 1.72 mg/dL Critically high 0.66-1.25 [facility] Comment on above: Performed By: #### B MP ####[facility] Opoqczjwyf[address] [place], [place] [address]Dr. Anjali Reagan EGFR-AF MALTESE 49 mL/min/1.73m2 Critically low >=60 [facility] Comment on above: Performed By: #### B MP ####[facility] Ascwszurtx[address] [place] [address]Dr. Anjali Reagan EGFR-NON AF MALTESE 40 mL/min/1.73m2 Critically low >=60 [facility] Comment on above: Performed By: #### B MP ####[facility] Iuinfiikat1518 [place] [address]Dr. Anjali Reagan Glucose [Mass/Vol] 204 mg/dL Critically high 74-106 [facility] Comment on above: Performed By: #### B MP ####[facility] Urlezfsytz1855 [place] [address]Dr. Anjali Reagan Potassium [Moles/Vol] 4.2 mmol/L Normal 3.4-5.0 [facility] Comment on above: Performed By: #### B MP ####[facility] Wzndpbteyv54[address] [place] [address]Dr. Anjali Reagan Sodium [Moles/Vol] 136 mmol/L Critically low 137-[address] [facility] Comment on above: Performed By: #### B MP ####[facility] Xmbelpbhwr1771 [place] [address]Dr. Anjali Reagan Urea nitrogen [Mass/Vol] 35.0 mg/dL Critically high 9.0-20 .0 [facility] Comment on above: Performed By: #### B MP ####[facility] Sqxadcryix48[address] [place] [address]Dr. Anjali Reagan Urea nitrogen/Creatinine [Mass ratio] 20.3 mg/mg Normal [facility] Comment on above: Performed By: #### B MP ####[facility] Horqqsscax[address] [place], [place] [address]Dr. Anjali Reagan CT ANKLE RT WO CONon 021 CT ANKLE RT WO CON Normal [facility] XR ANKLE RT MIN 3 VIEWSon XR ANKLE RT MIN 3 VIEWS Normal [facility] XR ANKLE RT MIN 3 VIEWSon XR ANKLE RT MIN 3 VIEWS Normal [facility] Otolaryngology Office/Clinic Noteon 01-19-2021 Otolaryngology [...] Dr. Freed. Previous pathology by physician in [place] about 1 year ago. PMHx of multiple [...] 2. Basal (more content not included)... Normal [facility] BASIC METABOLIC PANEL W/O CA on 01-15-2021 Chloride [Moles/Vol] 98 mmol/L Normal 98-110 [facility] Comment on above: Order Comment: FASTI NG:YESFASTING: YES Performed By: #### 1 0165, 496, 905 #### [facility] [address], [address] [place] [address] Cuff Knitter: Juan Meraz MD CO2 [Moles/Vol] 26 mmol/L Normal 20-32 [facility] Comment on above: Order Comment: FASTI NG:YESFASTING: YES Performed By: #### 1 0165, 496, 905 #### [facility] [address], [address] [place] [address] Cuff Knitter: Juan Meraz MD Creatinine [Mass/Vol] 1.71 mg/dL High 0.70-1.[address] [facility] Comment on above: Order Comment: FASTI NG:YESFASTING: YES Result Comment: For patients >49 years of age, the reference limit for Creatinine is approximately 13% higher for people identified as -Ecuadorean. Performed By: #### 1 0165, 496, 905 #### [facility] [address], [address] [place] [address] Cuff Knitter: Juan Meraz MD eGFR NON-AFR. MALTESE 42 mL/min/1.73m2 Low > OR = 60 [facility] Comment on above: Order Comment: FASTI NG:YESFASTING: YES Performed By: #### 1 0165, 496, 905 #### [facility] [address], [address] [place] [address] Cuff Knitter: Juan Meraz MD GFR/1.73 sq M.predicted among blacks MDRD (S/P/Bld) [Vol rate/Area] 48 mL/min/{1.73_m2} Low > OR = 60 [facility] Comment on above: Order Comment: FASTI NG:YESFASTING: YES Performed By: #### 1 0165, 496, 905 #### [facility] [place] [address] Cuff Knitter: Juan Meraz MD Glucose [Mass/Vol] 186 mg/dL High 65-99 [facility] Comment on above: Order Comment: FASTI NG:YESFASTING: YES Result Comment: Fasting reference interval For someone without known diabetes, a glucose value >125 mg/dL indicates that they may have diabetes and this should be confirmed with a follow-up test. Performed By: #### 1 0165, 495, 905 #### [facility] [place] [address] Cuff Knitter: Juan Meraz MD Potassium [Moles/Vol] 4.3 mmol/L Normal 3.5-5.[address] [facility] Comment on above: Order Comment: FASTI NG:YESFASTING: YES Performed By: #### 1 0165, 490, 905 #### [facility] [place] [address] Cuff Knitter: Juan Meraz MD Sodium [Moles/Vol] 137 mmol/L Normal 135-146 [facility] Comment on above: Order Comment: FASTI NG:YESFASTING: YES Performed By: #### 1 0165, 496, 905 #### [facility] [place] [address] Cuff Knitter: Juan Meraz MD Urea nitrogen [Mass/Vol] 34 mg/dL High 7-25 [facility] Comment on above: Order Comment: FASTI NG:YESFASTING: YES Performed By: #### 1 0165, 496, 905 #### [facility] [place] [address] Cuff Knitter: Juan Meraz MD Urea nitrogen/Creatinine [Mass ratio] 20 mg/mg Normal 6-22 [facility] Comment on above: Order Comment: SALLIE NG:YESFASTING: YES Performed By: #### 1 0165, 496, 905 #### [facility] of [place] [address] Cuff Knitter: Juan Meraz MD CBC (INCLUDES DIFF/PLT)on Basophils (Bld) [#/Vol] 0.026 10*3/uL Normal 0-200 [facility] Comment on above: Performed By: #### 1 0165, 496, 905 #### [facility] of [place] [address] Cuff Knitter: Juan Meraz MD Basophils/100 WBC (Bld) 0.3 % Normal [facility] Comment on above: Performed By: #### 1 0165, 496, 905 #### [facility] of [place] [address] Cuff Knitter: Juan Meraz MD Eosinophils (Bld) [#/Vol] 0.202 10*3/uL Normal 15-500 [facility] Comment on above: Performed By: #### 1 0165, 496, 905 #### [facility] [place] [address] Cuff Knitter: Juan Meraz MD Eosinophils/100 WBC (Bld) 2.3 % Normal [facility] Comment on above: Performed By: #### 1 0165, 496, 905 #### [facility] of [place] [address] Cuff Knitter: Juan Meraz MD Erythrocyte distribution width (RBC) [Ratio] 15.7 % High 11.0-15.0 [facility] Comment on above: Performed By: #### 1 0165, 496, 905 #### [facility] of [place] [address] Cuff Knitter: Juan Meraz MD Hematocrit (Bld) [Volume fraction] 34.9 % Low 38.5-50.0 [facility] Comment on above: Performed By: #### 1 0165, 496, 905 #### [facility] of [place] [address] Cuff Knitter: Juan Meraz MD Hemoglobin (Bld) [Mass/Vol] 10.9 g/dL Low 13.2-17.1 [facility] Comment on above: Performed By: #### 1 016, 496, 905 #### [facility] [place] [address] Cuff Knitter: Juan Meraz MD Lymphocytes (Bld) [#/Vol] 0.748 10*3/uL Low 850-3900 [facility] Comment on above: Performed By: #### 1 164, 496, 905 #### [facility] [place] [address] Cuff Knitter: Juan Meraz MD Lymphocytes/100 WBC (Bld) 8.5 % Normal [facility] Comment on above: Performed By: #### 1 164, 496, 905 #### [facility] [place] [address] Cuff Knitter: Juan Meraz MD MCH (RBC) [Entitic mass] 25.1 pg Low 27.0-33.0 [facility] Comment on above: Performed By: #### 1 164, 496, 905 #### [facility] [place] [address] Cuff Knitter: Juan Meraz MD MCHC (RBC) [Mass/Vol] 31.2 g/dL Low 32.0-36.[address] [facility] Comment on above: Performed By: #### 1 016, 496, 905 #### [facility] [place] [address] Cuff Knitter: Juan Meraz MD MCV (RBC) [Entitic vol] 80.4 fL Normal 80.0-100.0 [facility] Comment on above: Performed By: #### 1 0165, 496, 905 #### [facility] [place] [address] Cuff Knitter: Juan Meraz MD Monocytes (Bld) [#/Vol] 0.889 10*3/uL Normal 200-950 [facility] Comment on above: Performed By: #### 1 0165, 496, 905 #### [facility] [place] [address] Cuff Knitter: Juan Meraz MD Monocytes/100 WBC (Bld) 10.1 % Normal [facility] Comment on above: Performed By: #### 1 0165, 496, 905 #### [facility] [place] [address] Cuff Knitter: Juan Meraz MD Neutrophils (Bld) [#/Vol] 6.934 10*3/uL Normal 7524-8314 [facility] Comment on above: Performed By: #### 1 0165, 496, 905 #### [facility] [place] [address] Cuff Knitter: Juan Meraz MD Neutrophils/100 WBC (Bld) 78.8 % Normal [facility] Comment on above: Performed By: #### 1 0165, 496, 905 #### [facility] [place] [address] Cuff Knitter: Juan Meraz MD Platelet mean volume (Bld) [Entitic vol] 9.9 fL Normal 7.5-12.5 [facility] Comment on above: Performed By: #### 1 0165, 496, 905 #### [facility] [place] [address] Cuff Knitter: Juan Meraz MD Platelets (Bld) [#/Vol] 353 10*3/uL Normal 140-400 [facility] Comment on above: Performed By: #### 1 0165, 496, 905 #### [facility] of [address] , [address] [place] [address] Cuff Knitter: Juan Meraz MD RBC (Bld) [#/Vol] 4.34 10*6/uL Normal 4.20-5.80 [facility] Comment on above: Performed By: #### 1 0165, 496, 905 #### [facility] [place] [address] [place] , [address] [place] [address] Cuff Knitter: Juan Meraz MD WBC (Bld) [#/Vol] 8.8 10*3/uL Normal 3.8-10.8 [facility] Comment on above: Performed By: #### 1 0165, 496, 905 #### [facility] [address], [address] [place] [address] Cuff Knitter: Juan Meraz MD Otolaryngology Office/Clinic Noteon 01-14-2021 [...] oral caps (more content not included)... Normal [facility] Otolaryngology Office/Clinic Noteon 01-12-2021 Otolaryngology Office/Clinic Note [...] Dr. Freed. Previous pathology by physician in [place] about 1 year ago. PMHx of multiple [...] separately bill (more content not included)... Normal [facility] Operative Reporton Operative Report Date: January 11, [...] Chirag Gutierrez DO 01/11/21 20:09 EDT Normal [facility] Operative Report Date: January 11, 2021 Preoperative [...] Chirag Gutierrez DO 01/11/21 09:28 EDT Normal [facility] POC Glucose Randomon 021 Glucose [Mass/Vol] 211 mg/dL High 70-99 [facility] Comment on above: Performed By: #### C [id number] ####[address] [address] CoV2 Agon 01-10-2021 Employed in healthcare? Unknown Normal [facility] Comment on above: Performed By: #### C [id number] ####[address] [address] Group care resident? Unknown Normal [facility] Comment on above: Performed By: #### C [id number] ####[address] [address] In ICU? No Normal [facility] Comment on above: Performed By: #### C [id number] ####[address] [address] status? Not Applicable [facility] Comment on above: Performed By: #### C [id number] ####[address] [address] SARS-CoV-2 (COVID-19) RNA MEREDITH+probe Ql (Unsp spec) Normal Negative [facility] Comment on above: Result Comment: * Ne [...] Negative ADDITIONAL INFORMATION: Testing performed on the [employer]00 using the SARS-CoV-2 Antigen test. Results are for the identification of SARS-CoV-2 nucleocapsid antigen. The [employer] SARS-CoV-2 Antigen test can detect both viable [...] test results. In the [place], the [employer] SARS-CoV-2 Antigen test is only for use under the Food and Drug Administration?s Emergency Use Authorization. HCP Fact Sheet: https://www.fda.gov/media/099814/download Patient Fact Sheet: https://www.fda.gov/media/728438/download Performed By: #### C [id number] ####[address] [address] SARS-CoV-2 (COVID-19) RNA MEREDITH+probe Ql (Unsp spec) Unknown Normal [facility] Comment on above: Performed By: #### C [id number] ####[place] [address] [place] [address] Symptomatic as defined by CDC? Unknown Normal [facility] Comment on above: Performed By: #### C [id number] ####[address] [address] BASIC METABOLIC PANELon 10-0 Calcium [Mass/Vol] 9.6 mg/dL Normal 8.6-10.3 [facility] Comment on above: Performed By: #### 1 0508, 496, 905 #### [facility] [address], [address] [place] [address] Cuff Knitter: Juan Meraz MD Chloride [Moles/Vol] 100 mmol/L Normal 98-110 [facility] Comment on above: Performed By: #### 1 0165, 496, 905 #### [facility] [place] [address] Cuff Knitter: Juan Meraz MD CO2 [Moles/Vol] 30 mmol/L Normal 20-32 [facility] Comment on above: Performed By: #### 1 0165, 49, 905 #### [facility] [place] [address] Cuff Knitter: Juan Meraz MD Creatinine [Mass/Vol] 1.67 mg/dL High 0.70-1.[address] [facility] Comment on above: Result Comment: For patients >49 years of age, the reference limit for Creatinine is approximately 13% higher for people identified as -Ecuadorean. Performed By: #### 1 016, 496, 905 #### [facility] [place] [address] Cuff Knitter: Juan Meraz MD eGFR NON-AFR. MALTESE 43 mL/min/1.73m2 Low > OR = 60 [facility] Comment on above: Performed By: #### 1 016, 498, 905 #### [facility] [place] [address] Cuff Knitter: Juan Meraz MD GFR/1.73 sq M.predicted among blacks MDRD (S/P/Bld) [Vol rate/Area] 50 mL/min/{1.73_m2} Low > OR = 60 [facility] Comment on above: Performed By: #### 1 016, 490, 905 #### [facility] [place] [address] Cuff Knitter: Juan Meraz MD Glucose [Mass/Vol] 124 mg/dL High 65-99 [facility] Comment on above: Result Comment: Fasting reference interval For someone without known diabetes, a glucose value between 100 and 125 mg/dL is consistent with prediabetes and should be confirmed with a follow-up test. Performed By: #### 1 0165, 496, 905 #### [facility] [address], [address] [place] [address] Cuff Knitter: Juan Meraz MD Potassium [Moles/Vol] 4.7 mmol/L Normal 3.5-5.[address] [facility] Comment on above: Performed By: #### 1 0165, 496, 905 #### [facility] [place] [address] Cuff Knitter: Juan Meraz MD Sodium [Moles/Vol] 138 mmol/L Normal 135-146 [facility] Comment on above: Performed By: #### 1 0165, 496, 905 #### [facility] [place] [address] Cuff Knitter: Juan Meraz MD Urea nitrogen [Mass/Vol] 40 mg/dL High 7-25 [facility] Comment on above: Performed By: #### 1 0165, 496, 905 #### [facility] [place] [address] Cuff Knitter: Juan Meraz MD Urea nitrogen/Creatinine [Mass ratio] 24 mg/mg High 6-22 [facility] Diagnostics Comment on above: Performed By: #### 1 0165, 496, [phone] #### [facility] [place] [address] Cuff Knitter: Juan Meraz MD HEMOGLOBIN A1con 12-31-2020 HEMOGLOBIN [...] 1 0165, 496, [phone] #### [facility] [address], [address] [place] [address] Cuff Knitter: Juan Meraz MD Provider Letteron 12-31-2020 Provider Letter Plastic Surgery & Aesthetics [facility] Ear, Nose & Throat; Facial Plastic Surgery [address] [place] [address] P: [phone] F: [phone] [facility] Anai [id number] Date of Visit: 01/05/2021 ATTENTION MEDICAL RECORDS: We are requesting pathology report for biopsy of left ear done within the last 2 years for patient Anai Goodman 59. Thank you, ChiragEwa [facility] Provider Letter Plastic Surgery & Aesthetics [facility] Ear, Nose & Throat; Facial Plastic Surgery [address] [place], [place] [id number] P: [phone] F: [phone] Chirag Gutierrez DO [facility] Re: Anai [id number] Date of Visit: 01/05/2021 ATTENTION MEDICAL RECORDS: We are requesting pathology report for biopsy of left ear done within the last 2 years for patient Anai Goodman. Thank you, ChiragEwa [facility] Provider Letter Plastic Surgery & Aesthetics [facility] Ear, Nose & Throat; Facial Plastic Surgery [address] [place], [place] [id number] P: [phone] F: [phone] [place] [address] Re: Anai [id number] Date of Visit: 01/05/2021 [...] prior to 01/05/21. Thank you, Muna Normal [facility] URIC ACIDon 12-31-2020 Urate [Mass/Vol] 10.3 mg/dL High 4.0-8.0 [facility] Comment on above: Order Comment: FASTI NG:YES FASTING: YES Result Comment: Ther apeutic target for gout patients: <6.0 mg/dL Performed By: #### 1 0165, 496, [phone] #### [facility] [address], [address] [place] [address] Cuff Knitter: Juan Meraz MD Provider Letteron 12-17-2020 Provider Letter Deon Brito [address] [place] [id number] Re: Anai Goodman Date of Visit: 12/15/2020 Dear Deon Braxton, I am referring Anai to your office for care. Attached your will find my notes and impressions from our visit. Deon Braxton DO Re:Anai Goodman 1955 Date of Visit: 12/15/2020 Dear Deon Braxton DO: I had the pleasure of evaluating patient, Anai Goodman, in the [facility] clinic on 12/15/2020. Attached you will [...] Gutierrez, DO Plastic Surgery and Aesthetics of [address] [address] Let me know if you have any questions or concerns. Sincerely, Tyesha Dunne Providers: The following document(s) were included in the letter: December 15, 2020 13:30:00 EDT - (12/15/2020) Office Visit Note Normal [facility] Otolaryngology Office/Clinic Noteon 12-15-2020 Otolaryngology Office/Clinic Note [...] Dr. Freed. Previous pathology by physician in [place] about 1 year ago. PMHx of multiple [...] mL, 1 Refill(s), 12/18/20 14:00:00 EDT, Pharmacy: [facility][id number] Medical Decision Making Chronic conditions NOT treated [...] 5000 intl (more content not included)... Normal [facility] Otolaryngology Office/Clinic Note Chief Complaint BCC of [...] Dr. Freed. Previous pathology by physician in [place] about 1 year ago. PMHx of multiple [...] meal to (more content not included)... Normal [facility] XR ANKLE RT MIN 3 VIEWSon XR ANKLE RT MIN 3 VIEWS Normal [facility] XR FOOT RT MIN 3 VIEWSon XR FOOT RT MIN [address] [facility] XR FOOT RT MIN 3 VIEWSon XR FOOT RT MIN [address] [facility] XR FOOT RT MIN 3 VIEWSon XR FOOT RT MIN [address] [facility] Consultation Noteon 05-11-19 Consultation Note [id number] Normal [facility] Vital Signs Date Time Vital Sign Value Performing Clinician Facility 04-12-2023 11:11-0500 Body height 182.9 cm Terry ESCOBEDO Work Phone: [facility] 04-12-2023 11:11-0500 Body mass index (BMI) [Ratio] 28.89 kg/m2 Terry ESCOBEDO Work Phone: [facility] 04-12-2023 11:11-0500 Body weight 96.62 kg Terry ESCOBEDO Work Phone: [facility] 04-12-2023 11:11-0500 Diastolic blood pressure 74 mm[Hg] Terry ESCOBEDO Work Phone: [facility] 04-12-2023 11:11-0500 Heart rate 74 /min Terry ESCOBEDO Work Phone: [facility] 04-12-2023 11:11-0500 SaO2% (BldA) [Mass fraction] 97 % Terry ESCOBEDO Work Phone: [facility] 04-12-2023 11:11-0500 Systolic blood pressure 126 mm[Hg] Terry Lock [employer] Work Phone: [facility] 12-05-2022 13:00-0400 Body height 177.8 cm Ghanshyam Kaye Other [employer] Other 12-05-2022 13:00-0400 Diastolic blood pressure 70 mm[Hg] Ghanshyam Kaye Other [facility] Other 12-05-2022 13:00-0400 SaO2% (BldA) [Mass fraction] 97 % Ghanshyam Kaye Other [facility] Other 12-05-2022 13:00-0400 Systolic blood pressure 110 mm[Hg] Ghanshyam Kaye Other [employer] Other 10-05-2022 10:00-0400 Body height 177.8 cm Dung Serna Other [employer] Other 10-05-2022 10:00-0400 Body mass index (BMI) [Ratio] 31.85 kg/m2 Dung Serna Other [employer] Other 10-05-2022 10:00-0400 Body weight 100.7 kg Dung Serna Other [employer] Other 10-05-2022 10:00-0400 Diastolic blood pressure 70 mm[Hg] Dung Serna Other [employer] Other 10-05-2022 10:00-0400 Systolic blood pressure 118 mm[Hg] Dung Serna Other [employer] Other 06-02-2022 11:00-0500 Body height 177.8 cm Reddy Brandt Other [employer] Other 06-02-2022 11:00-0500 Body mass index (BMI) [Ratio] 30.13 kg/m2 Reddy Brandt Other [employer] Other 06-02-2022 11:00-0500 Body weight 95.26 kg Reddy Brandt Other [employer] Other 03-15-2022 13:45-0500 Body height 177.8 cm Reddy Brandt Other [employer] Other 03-15-2022 13:45-0500 Body mass index (BMI) [Ratio] 30.85 kg/m2 Reddy Brandt Other [employer] Other 03-15-2022 13:45-0500 Body weight 97.52 kg Reddy Brandt Other [employer] Other 02-07-2022 14:00-0500 Body height 177.8 cm Ghanshyam Shermaney Other [employer] Other 02-07-2022 14:00-0500 Body mass index (BMI) [Ratio] 30.85 kg/m2 Ghanshyam Kaye Other [employer] Other 02-07-2022 14:00-0500 Body weight 97.52 kg Ghanshyam Kaye Other [employer] Other 02-07-2022 14:00-0500 Diastolic blood pressure 72 mm[Hg] Ghanshyam Kaye Other [employer] Other 02-07-2022 14:00-0500 SaO2% (BldA) [Mass fraction] 98 % Ghanshyam Kaye Other [facility] [employer] Other 02-07-2022 14:00-0500 Systolic blood pressure 118 mm[Hg] Ghanshyam Kaye Other [facility] [employer] Other 11-29-2021 14:35-0400 Diastolic blood pressure 78 mm[Hg] DO Deon Cordovahas Work Phone: [facility] 11-29-2021 14:35-0400 Heart rate 75 /min DO Deon Cordovahas Work Phone: [facility] 11-29-2021 14:35-0400 Respiratory rate 16 /min DO Deon Cordovahas Work Phone: [facility] 11-29-2021 14:35-0400 SaO2% (BldA) [Mass fraction] 95 % DO Deon Cordovahas Work Phone: [facility] 11-29-2021 14:35-0400 Systolic blood pressure 123 mm[Hg] DO Deon Cordovahas Work Phone: [facility] 11-29-2021 13:39-0400 Inhaled oxygen flow rate 8 L/min DO Deon Cordovahas Work Phone: [facility] 11-29-2021 13:24-0400 Body temperature 98.5 [degF] DO Deon Cordovahas Work Phone: [facility] 11-29-2021 12:10-0400 Body height 182.88 cm DO Deon Cordovahas Work Phone: [facility] 11-29-2021 12:10-0400 Body mass index (BMI) [Ratio] 30.5 kg/m2 DO Deon Tashahas Work Phone: [facility] 11-29-2021 12:10-0400 Body weight 102.05 kg DO Deon Tashahas Work Phone: [facility] 11-03-2021 10:41-0400 Diastolic blood pressure 66 mm[Hg] DO Deon Tashahas Work Phone: [facility] 11-03-2021 10:41-0400 Heart rate 78 /min DO Deon Tashahas Work Phone: [facility] 11-03-2021 10:41-0400 Respiratory rate 16 /min DO Deon Tashahas Work Phone: [facility] 11-03-2021 10:41-0400 SaO2% (BldA) [Mass fraction] 97 % DO Deon Cordovahas Work Phone: [facility] 11-03-2021 10:41-0400 Systolic blood pressure 121 mm[Hg] DO Deon Cordovahas Work Phone: [facility] 11-03-2021 09:41-0400 Body temperature 98 [degF] DO Deon Cordovahas Work Phone: [facility] 11-03-2021 09:11-0400 Inhaled oxygen flow rate 8 L/min DO Deon Cordovahas Work Phone: [facility] 11-03-2021 07:37-0400 Body height 182.88 cm DO Deon Cordovahas Work Phone: [facility] 11-03-2021 07:37-0400 Body mass index (BMI) [Ratio] 30.5 kg/m2 DO Deon Tashahas Work Phone: [facility] 11-03-2021 07:37-0400 Body weight 102.05 kg DO Deon Tashahas Work Phone: [facility] 11-01-2021 18:03-0400 Diastolic blood pressure 69 mm[Hg] DO Deon Yuhas Work Phone: [facility] 11-01-2021 18:03-0400 Heart rate 71 /min DO Deon Tahsahas Work Phone: [facility] 11-01-2021 18:03-0400 Respiratory rate 16 /min DO Deon Yuhas Work Phone: [facility] 11-01-2021 18:03-0400 SaO2% (BldA) [Mass fraction] 99 % DO Deon Yuhas Work Phone: [facility] 11-01-2021 18:03-0400 Systolic blood pressure 124 mm[Hg] DO Deon Yuhas Work Phone: [facility] 11-01-2021 16:21-0400 Body height 182.88 cm DO Deon Yuhas Work Phone: [facility] 11-01-2021 16:21-0400 Body temperature 98 [degF] DO Deon Yuhas Work Phone: [facility] 11-01-2021 16:21-0400 Body weight 102.05 kg DO Deon Yuhas Work Phone: [facility] 10-31-2021 10:30-0400 Body height 177.8 cm Reddy Brandt Other [facility] [employer] Other 10-27-2021 05:00-0400 Body temperature 98.6 [degF] DO Deon Tashahas Work Phone: [facility] 10-27-2021 05:00-0400 Diastolic blood pressure 72 mm[Hg] DO Deon Yuhas Work Phone: [facility] 10-27-2021 05:00-0400 Heart rate 70 /min DO Deon Yuhas Work Phone: [facility] 10-27-2021 05:00-0400 Respiratory rate 16 /min DO Deon Yuhas Work Phone: [facility] 10-27-2021 05:00-0400 SaO2% (BldA) [Mass fraction] 98 % DO Deon Yuhas Work Phone: [facility] 10-27-2021 05:00-0400 Systolic blood pressure 132 mm[Hg] DO Deon Cordovahas Work Phone: [facility] 10-24-2021 12:00-0400 Body height 182.88 cm DO Deon Cordovahas Work Phone: [facility] 10-23-2021 05:26-0400 Body weight 70.9 kg DO Deon Cordovahas Work Phone: [facility] 10-22-2021 04:14-0400 Inhaled oxygen concentration 21 % DO Deon Cordovahas Work Phone: [facility] 10-21-2021 12:00-0400 Body temperature 98.1 [degF] DO Deon Cordovahas Work Phone: [facility] 10-21-2021 12:00-0400 Diastolic blood pressure 73 mm[Hg] DO Deon Cordovahas Work Phone: [facility] 10-21-2021 12:00-0400 Heart rate 76 /min DO Deon Ramoss Work Phone: [facility] 10-21-2021 12:00-0400 Respiratory rate 18 /min DO Deon Ramoss Work Phone: [facility] 10-21-2021 12:00-0400 SaO2% (BldA) [Mass fraction] 95 % DO Deon Cordovahas Work Phone: [facility] 10-21-2021 12:00-0400 Systolic blood pressure 128 mm[Hg] DO Deon Cordovahas Work Phone: [facility] 10-21-2021 06:00-0400 Body weight 99.9 kg DO Deon Tashahas Work Phone: [facility] 10-21-2021 02:05-0400 Inhaled oxygen concentration 21 % DO Deon Tashahas Work Phone: [facility] 10-19-2021 11:00-0400 Body height 182.88 cm DO Deon Braxton Work Phone: [facility] 10-18-2021 15:37-0400 Inhaled oxygen flow rate 6 L/min DO Deon Braxton Work Phone: [facility] 10-18-2021 13:19-0400 Body mass index (BMI) [Ratio] 29.8 kg/m2 DO Deon Braxton Work Phone: [facility] 10-12-2021 10:00-0400 Body height 177.8 cm Reddy Karly Other [employer] Other 10-12-2021 10:00-0400 Body mass index (BMI) [Ratio] 32.28 kg/m2 Reddy Karly Other [employer] Other 10-12-2021 10:00-0400 Body weight 102.06 kg Reddy Karly Other [employer] Other 10-06-2021 14:15-0400 Body height 177.8 cm Pako Aguilar Other [employer] Other 10-06-2021 14:15-0400 Body mass index (BMI) [Ratio] 32.28 kg/m2 Pako Aguilar Other [employer] Other 10-06-2021 14:15-0400 Body temperature 97.3 [degF] Pako Aguilar Other [employer] Other 10-06-2021 14:15-0400 Body weight 102.06 kg Pako Aguilar Other [employer] Other 10-06-2021 14:15-0400 Diastolic blood pressure 73 mm[Hg] Pako Aguilar Other [employer] Other 10-06-2021 14:15-0400 Systolic blood pressure 127 mm[Hg] Pako Aguilar Other [employer] Other 09-08-2021 15:30-0400 Body height 177.8 cm Pako Aguilar Other [employer] Other 09-08-2021 15:30-0400 Body temperature 98.1 [degF] Pako Aguilar Other [employer] Other 09-08-2021 15:30-0400 Diastolic blood pressure 73 mm[Hg] Pako Leon Other [employer] Other 09-08-2021 15:30-0400 Systolic blood pressure 149 mm[Hg] Pako Leon Other [employer] Other Encounters Encounter Date Encounter Type Care Provider Facility Start: 10-01-2023 End: 10-01-2023 ambulatory [facility] Start: 09-18-2023 End: 09-18-2023 ambulatory [facility] Start: 09-13-2023 End: 09-13-2023 ambulatory [facility] Start: 09-06-2023 End: 09-06-2023 ambulatory [facility] Start: 08-02-2023 End: 08-03-2023 ambulatory [facility] Start: 08-02-2023 End: 08-02-2023 ambulatory [facility] Start: 08-01-2023 End: 08-01-2023 [...] arthropathy, with long-term current use of insulin ([facility]) Start: 05-12-2023 Refill Deon Grace Walker O Work Phone: [facility] Comment on above: Pure hypercholestero lemia Med Refill Start: 04-19-2023 End: 04-19-2023 ambulatory Salina Walker [facility] Facility:[facility] Start: 04-19-2023 End: 04-19-2023 ambulatory DO Deon Ramoss Work Phone: [facility] Work Phone: Start: 04-19-2023 End: 04-19-2023 Departed Referred DO Deon Ramoss Work Phone: 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 Start: 04-12-2023 Encounter for prepro cedural cardiovascular examination [facility]ERRY [facility] Start: 04-12-2023 End: 04-12-2023 Office outpatient visit 25 minutes Terry Lock [employer] Work Phone: [facility] Comment on above: Preop cardiovascular exam (Primary Dx); Coronary artery disease involving hamilton coronary artery of hamilton heart without angina pectoris; Ischemic cardiomyopathy; Chronic systolic congestive heart failure (CMS-HCC); Apical mural thrombus; Essential (primary) hypertension; Cardiac defibrillator in place- [employer]; Mixed hyperlipidemia Start: 04-12-2023 End: 04-12-2023 Patient encounter status Terry Lock [employer] Work Phone: [facility] Work Phone: Start: 04-05-2023 End: 04-05-2023 ambulatory YOVANNY CALHOUN [facility] Start: 04-03-2023 End: 04-03-2023 ambulatory Dung Serna Other [employer] Other Start: 04-03-2023 Telephone encounter Dung Serna [facility] Start: 03-22-2023 End: 03-23-2023 ambulatory [facility] Start: 03-22-2023 End: 03-22-2023 ambulatory YOVANNY CALHOUN Not Available Start: 03-22-2023 End: 03-22-2023 ambulatory YOVANNY CALHOUN Not Available Start: 03-22-2023 End: 03-22-2023 ambulatory [facility] Start: 03-07-2023 End: 03-07-2023 ambulatory ZOEYERIC KIMBLEILL Not Available Start: 01-11-2023 End: 01-11-2023 ambulatory Ghanshyam Kaye Other [employer] Other Start: 01-11-2023 Telephone encounter Ghanshyam Kaye [facility] Start: 12-05-2022 End: 12-05-2022 ambulatory Ghanshyam Kaye Other [employer] Other Start: 12-05-2022 Office outpatient vi sit 15 minutes Ghanshyam Kaye [facility] Start: 10-05-2022 Office outpatient ne w 30 minutes uDng Serna [facility] Start: 10-05-2022 End: 10-05-2022 ambulatory [facility] [employer] Other Start: 08-02-2022 End: 08-02-2022 ambulatory Reddy Brandt Other [employer] Other Start: 08-02-2022 Office outpatient vi sit 15 minutes Reddy Brandt [facility] Start: 06-02-2022 End: 06-02-2022 ambulatory Reddy Brandt Other [employer] Other Start: 06-02-2022 Postop follow up vis it related to original px Reddy Brandt [facility] Start: 05-12-2022 End: 05-12-2022 ambulatory Reddy Brandt Other [employer] Other Start: 05-12-2022 Telephone encounter Reddy MOE G [facility] Start: 05-03-2022 End: 05-03-2022 ambulatory DO Deon Braxton Work Phone: [facility] Work Phone: Start: 05-03-2022 End: 05-03-2022 Patient encounter procedure DO Deon Braxton Work Phone: [facility]-[employer] [address] Start: 04-28-2022 End: 04-28-2022 ambulatory Reddy Brandt Other [employer] Other Start: 04-28-2022 Office outpatient vi sit 15 minutes Reddy Brandt [facility] Start: 04-17-2022 End: 04-17-2022 ambulatory Reddy Brandt Other [employer] Other Start: 04-17-2022 Telephone encounter Reddy MOE G [facility] Start: 04-12-2022 End: 04-12-2022 ambulatory Reddy Brandt Other [employer] Other Start: 04-12-2022 Postop follow up vis it related to original px Reddy Karly [facility] Start: 03-15-2022 End: 03-15-2022 ambulatory Reddy Karly Other [employer] Other Start: 03-15-2022 Office outpatient vi sit 15 minutes Reddy Meehanley [facility] Start: 02-07-2022 End: 02-07-2022 ambulatory Ghanshyam Kaye Other [employer] Other Start: 02-07-2022 Office outpatient vi sit 15 minutes Ghanshyam Shermaney [facility] Start: 02-03-2022 End: 02-03-2022 ambulatory Reddy Karly Other [employer] Other Start: 02-03-2022 Postop follow up vis it related to original px Reddy Brandt [facility] Start: 01-24-2022 End: 01-24-2022 ambulatory Reddy Brandt Other [employer] Other Start: 01-24-2022 Telephone encounter Reddy MOE G [facility] Start: 01-20-2022 End: 01-20-2022 ambulatory Reddy Brandt Other [employer] Other Start: 01-20-2022 Postop follow up vis it related to original px Reddy Karly [facility] Start: 01-16-2022 End: 01-16-2022 ambulatory Reddy Brandt Other [employer] Other Start: 01-16-2022 Telephone encounter Reddy MOE [facility] Start: 01-06-2022 End: 01-06-2022 ambulatory Reddy Brandt Other [employer] Other Start: 01-06-2022 Postop follow up vis it related to original px Reddy Brandt [facility] Start: 12-23-2021 End: 12-23-2021 ambulatory Reddy Karly Other [employer] Other Start: 12-23-2021 Postop follow up vis it related to original px Reddy Brandt [facility] Start: 12-20-2021 End: 12-20-2021 Discharged Recurring DO Deon Braxton Work Phone: [facility]-Infusion Therapy - O/P Start: 12-14-2021 End: 12-14-2021 ambulatory Reddy Brandt Other [employer] Other Start: 12-14-2021 Postop follow up vis it related to original px Reddy Brandt [facility] Start: 12-12-2021 End: 12-12-2021 ambulatory Reddy Brandt Other [employer] Other Start: 12-12-2021 Telephone encounter Reddy Karly FP [facility] Start: 12-09-2021 End: 12-09-2021 ambulatory Redyd Karly Other [employer] Other Start: 12-09-2021 Postop follow up vis it related to original px Reddy Meehanley [facility] Start: 11-29-2021 End: 11-29-2021 Evaluation and management of inpatient DO Deon Braxton Work Phone: [facility]-[address] [place] [address] Surgical Start: 11-29-2021 End: 11-29-2021 Admission to same day surgery center DO Deon Braxton Work Phone: [facility]gery [facility] Start: 11-28-2021 End: 11-28-2021 ambulatory Reddy Karly Other [employer] Other Start: 11-28-2021 Postop follow up vis it related to original px Reddy Karly [facility] Start: 11-21-2021 End: 11-21-2021 ambulatory Reddy Brandt Other [employer] Other Start: 11-21-2021 Telephone encounter Reddy MOE G [facility] Start: 11-03-2021 End: 11-03-2021 Admission to same day surgery center DO Deon Ramosanival Work Phone: [facility] Start: 11-02-2021 End: 11-02-2021 ambulatory Reddy Brandt Other [employer] Other Start: 11-02-2021 Postop follow up vis it related to original px Reddybryan Brandt [facility] Start: 11-02-2021 End: 11-02-2021 Patient encounter procedure DO Deon Braxton Work Phone: [facility]-Pre-Surgical Testing Start: 11-01-2021 End: 11-01-2021 Emergency department patient visit DO Deon Braxton Work Phone: [facility]-Emergency Room Start: 11-01-2021 End: 11-01-2021 ambulatory Reddy Brandt Other [employer] Other Start: 11-01-2021 Telephone encounter Reddy MOE G [facility] Start: 10-31-2021 End: 10-31-2021 ambulatory Reddy Brandt Other [employer] Other Start: 10-31-2021 Postop follow up vis it related to original px Reddybryan Brandt [facility] Start: 10-21-2021 End: 10-27-2021 Evaluation and management of inpatient DO Deon Braxton Work Phone: [facility] Start: 10-18-2021 End: 10-21-2021 Evaluation and management of inpatient DO Deon Braxton Work Phone: [facility] Start: 10-14-2021 End: 10-14-2021 Patient encounter procedure DO Deon Braxton Work Phone: [facility]-Pre-Surgical Testing Start: 10-12-2021 End: 10-12-2021 ambulatory Reddy Brandt Other [facility] [employer] Other Start: 10-12-2021 Office outpatient vi sit 25 minutes Reddy ROSENBERG [facility] Start: 10-10-2021 End: 10-10-2021 Patient encounter procedure DO Deon Braxton Work Phone: [facility]-MRI [facility] Start: 10-06-2021 End: 10-06-2021 Patient encounter procedure DO Deon Braxton Work Phone: [facility]-Lab [facility] Start: 10-06-2021 End: 10-06-2021 ambulatory Reddy Brandt Other [facility] [employer] Other Start: 10-06-2021 Office outpatient vi sit 25 minutes Pako ROSENBERG Infectious Disease Start: 10-06-2021 Telephone encounter Reddy [facility] Start: 09-29-2021 End: 09-29-2021 Patient encounter procedure DO Deon Braxton Work Phone: [facility]-Pacemaker Check Start: 09-26-2021 End: 09-26-2021 ambulatory Reddy Brandt Other [employer] Other Start: 09-26-2021 Telephone encounter Reddy Gil [facility] Start: 09-21-2021 End: 09-21-2021 Patient encounter procedure DO Deon Braxton Work Phone: [facility]-XRay [facility] Start: 09-21-2021 ambulatory SALINA LEE Faci lity:[facility] Start: 09-09-2021 End: 09-10-[address] DEON BRAXTON Facility:[facility] Start: 09-09-2021 End: 09-10-2021 ambulatory SALINA Aaron CHAYOARIS Facility:[facility] Start: 09-08-2021 End: 09-08-2021 ambulatory Pako Aguilar Other [facility] [employer] Other Start: 09-08-2021 Office outpatient vi sit [...] SALINA LEE Facility:[facility] Start: 02-28-2021 ambulatory DEON edmonds:[facility] Start: 02-23-2021 End: 02-24-2021 ambulatory SALINA LEE Facility:[facility] Start: 02-22-2021 ambulatory DEON BRAXTON Faci lity:[facility] Start: 02-17-2021 End: 02-18-2021 ambulatory SALINA LEE Facility:[facility]1 Start: 02-09-2021 Encounter for prepro cedural laboratory examination SALINA LEE [facility] Start: 02-08-2021 End: 02-12-2021 Evaluation and [...] Facility:[facility] Start: 01-26-2021 End: 01-27-[address] DOEN BRAXTON Facility:[facility] Start: 01-24-2021 End: 01-25-[address] DEON BRAXTON Facility:[facility] Start: 01-20-2021 End: 01-21-[address] DEON BRAXTON Facility:[facility] Start: 01-11-2021 End: 01-11-2021 ambulatory DEON BRAXTON Facility:[facility] Start: 01-10-2021 End: 01-11-2021 ambulatory DEON BRAXTON Facility:[facility] Start: 12-08-2020 End: 12-09-2020 ambulatory [...] w/le ast 12 lds w/i&r Terry Leo [employer] Work Phone: Start: 03-22-2023 Adult depression scr eening assessment Terry Lock [employer] Work Phone: Start: 12-29-2022 Diabetic retinal eye exam Terry Leo [employer] Work Phone: Start: 10-26-2022 Microalbumin [Mass/v olume] in Urine by Test strip Terry Leo [employer] Work Phone: Start: 11-29-2021 Incision and drainag e of lower extremity DO Deon Braxotn Work Phone: Start: 11-03-2021 Amputation of right [...] Other Investigation of transfusion reaction DO Deon [email or web address] Phone: SARS-CoV-2, Influenz a & RSV (PCR) DO Deon [employer] Work Phone: Plan of Treatment Date Care Activity Detail Author Start: 01-13-2026 DTaP,Tdap and Td Vaccines (2 - Td or Tdap) DTaP,Tdap and Td Vaccines (2 - Td or Tdap) [facility] Start: 05-24-2024 Glaucoma screening Diabetic Ophthalmology Exam [facility] [employer] [facility] Start: 04-12-2024 Adult BMI Screening Adult BMI Screening [facility] [employer] Start: 04-12-2024 Tobacco Screening Tobacco Screening [facility] [employer] Start: 03-22-2024 Depression Screening Depression Screening [facility] [employer] [facility] Start: 03-22-2024 Fall Risk Screening Fall Risk Screening [facility] [employer] [facility] Start: 12-30-2023 Glaucoma screening Diabetic Ophthalmology Exam [facility] [facility] Start: 11-29-2023 End: 11-29-2023 Patient encounter procedure 11/29/2023 9:00 AM EDT Office Visit [facility] - [facility] [address] [place] [address] [facility] Start: 11-24-2023 Medicare Annual Wellness Visit Medicare Annual Wellness Visit [facility] Start: 10-27-2023 Diabetic foot examination Diabetic Foot Exam [facility] Start: 10-27-2023 Urine screening for protein Urine Microalbumin [facility] Start: 11-29-2021 [facility] Start: 11-29-2021 [facility] Start: 11-29-2021 Incision and drainage of lower extremity OR I&D Exploration Upper/Lower Extremity (Right) [facility] Start: 11-29-2021 End: 11-29-2021 Admission to same day surgery center Below knee amputation [facility] [employer] Start: 11-03-2021 [facility] Start: 11-03-2021 [facility] Start: 11-03-2021 Amputation of right lower limb OR Leg Amputation Above/Below (Right) [facility] Start: 11-03-2021 End: 11-03-2021 Admission to same day surgery center Departed Surgical Day Care [facility] Start: 11-02-2021 End: 11-02-2021 Patient encounter procedure Departed Clinical [facility] Start: 11-01-2021 End: 11-01-2021 Emergency department patient visit Departed Emergency [facility] Start: 10-27-2021 [facility] Work Phone: Start: 10-21-[address] 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 Work Phone: Start: 10-21-2021 [facility] Work Phone: Start: 10-18-2021 Referral to clinical music box mechanic [facility] Work Phone: Start: 10-18-2021 Detachment at Right Lower Leg, Mid, Open Approach Detachment at Right Lower Leg, Mid, Open Approach [facility] Start: 10-17-2021 [facility] Work Phone: Start: 10-14-1975 Adult BMI Follow Up Plan Adult BMI Follow Up Plan [facility] Patient Education [facility] Work Phone: Patient referral [facility] Work Phone: SARS-CoV-2 (COVID-19 ) N gene [Presence] in Respiratory specimen by MEREDITH with probe detection [facility] Work Phone: Immunizations Immunization Date Immunization Notes Care Provider Fa cili 03-12-2023 Covid-19,mrna, Lnp-s , Pf, 50mcg/0.5ml 12+ Terry Lock [employer] Work Phone: [facility] 03-12-2023 Influenza Vaccine, Quadrivalent, Adjuvanted Terry Lock [employer] Work Phone: [facility] 03-12-2023 RSV, mAb, nirsevimab-alip, 1 mL, to 24 months Terry Lock [employer] Work Phone: [facility] 03-12-2023 RSV, recombinant, protein subunit RSVpreF, adjuvant reconstituted, 0.5 mL, PF Terry Lock [employer] Work Phone: [facility] 06-14-2022 zoster vaccine recombinant Terry Lock [employer] Work Phone: [facility] 04-15-2022 Covid-19, Mrna, Lnp- s, Bivalent, Pf, 50mcg/0.5ml or 25mcg/0.25ml Terry Lock [employer] Work Phone: [facility] 04-15-2022 zoster vaccine recombinant Terry Lock [employer] Work Phone: [facility] 04-11-2022 Influenza, High-dose , Quadrivalent Terry Lock [employer] Work Phone: [facility] 03-01-2021 COVID-19 mRNA-1273 (Moderna) DO Deon Braxton Work Phone: [facility] 03-01-2021 Seasonal, quadrivale nt, recombinant, injectable influenza vaccine, preservative free Terry Lock [employer] Work Phone: [facility] 06-25-2020 COVID-19 mRNA-1273 (Moderna) DO Deon Braxton Work Phone: [facility] 05-28-2020 COVID-19, mRNA, LNP- S, PF, 100mcg/0.5mL Dose Terry Leo [employer] Work Phone: [facility] 05-25-2020 COVID-19, mRNA, LNP- S, PF, 100mcg/0.5mL Dose Terry Leo [employer] Work Phone: [facility] 01-14-2020 influenza, seasonal, injectable Terry Lock [employer] Work Phone: [facility] 12-30-2019 influenza, injectabl e, quadrivalent, preservative free Terry Lock [employer] Work Phone: [facility] 04-07-2019 Influenza, injectabl e, Madin Yumiko Canine Kidney, preservative free, quadrivalent Terry Lock [employer] Work Phone: [facility] 12-31-2018 pneumococcal conjuga te vaccine, 13 valent Terry Lock [employer] Work Phone: [facility] 01-23-2018 influenza, injectabl e, quadrivalent, contains preservative Terry Lock [employer] Work Phone: [facility] 01-23-2018 influenza, injectabl e, quadrivalent, preservative free Terry Lock [employer] Work Phone: [facility] 02-05-2017 influenza, injectabl e, quadrivalent, preservative free Terry Lock [employer] Work Phone: [facility] 02-05-2017 pneumococcal conjuga te vaccine, 13 valent Terry Lock [employer] Work Phone: [facility] 01-14-2017 influenza, injectabl e, quadrivalent, contains preservative Terry Lock [employer] Work Phone: [facility] 01-14-2016 tetanus toxoid, redu joseph diphtheria toxoid, and acellular pertussis vaccine, adsorbed Terry Lock [employer] Work Phone: [facility] 01-02-2016 influenza virus vacc ine, unspecified formulation Terry Lock [employer] Work Phone: [facility] 08-13-2015 zoster vaccine, live Terry Lock [employer] Work Phone: [facility] 12-22-2014 influenza, seasonal, injectable, preservative free Terry Lock [employer] Work Phone: [facility] 01-26-2014 pneumococcal conjuga te vaccine, 13 valent Terry Lock [employer] Work Phone: [facility] 01-12-2014 influenza, seasonal, injectable Terry Lock [employer] Work Phone: [facility] 01-12-2014 Seasonal trivalent influenza vaccine, adjuvanted, preservative free Terry Lcok [employer] Work Phone: [facility] 09-17-2012 pneumococcal polysaccharide vaccine, 23 valent Terry Lock [employer] Work Phone: [facility] 09-17-2012 pneumococcal vaccine , unspecified formulation Terry Lock [employer] Work Phone: [facility] Payers Date Payer Category Payer Medicare ANTHEM MEDICARE [facility] MEDIC[facility] ADVANT[facility] [id number] 2023-[facility] [phone] [address] [place] [address] [id number] 2023 Medicare [id number] 2022 Self-pay [id number] 2022 Medicare [id number] 2021 Unknown 1957 Unknown [id number] 2.16.840.1.031154.3.579.2.196 1957 Unknown [id number] 2.16.840.1.401725.3.579.2.196 1957 Unknown [id number] 2.16.840.1.648490.3.579.2.196 1957 Unknown [id number] 2.16.840.1.023278.3.579.2.196 1957 Unknown [id number] 2.16.840.1.330377.3.579.2.593 1957 Unknown [id number] 2.16.840.1.904681.3.579.2.593 1957 Unknown [id number] 2.16.840.1.404883.3.579.2.593 1957 Unknown [id number] 2.16.840.1.061878.3.579.2.593 1957 Unknown [id number] 2.16.840.1.213542.3.579.2.593 1957 Unknown [id number] 2.16.840.1.614511.3.579.2.593 1957 Unknown [id number] 2.16.840.1.641128.3.579.2.593 1957 Unknown [id number] 2.16.840.1.280383.3.579.2.593 1957 Unknown [id number] 2.16.840.1.401849.3.579.2.593 1957 Unknown [id number] 2.16.840.1.546341.3.579.2.593 1957 Unknown [id number] 2.16.840.1.241832.3.579.2.593 1957 Unknown [id number] 2.16.840.1.240586.3.579.2.593 1957 Unknown [id number] 2.16.840.1.632820.3.579.2.593 1957 Unknown [id number] 2.16.840.1.015436.3.579.2.593 1957 Unknown [id number] 2.16.840.1.984304.3.579.2.593 1957 Unknown [id number] 2.16.840.1.313849.3.579.2.59 1957 Unknown [id number] 2.16.840.1.755303.3.579.2.593 1957 Unknown [id number] 2.16.840.1.441124.3.579.2. 1957 Unknown [id number] 2.16.840.1.604453.3.579.2.593 1957 Unknown [id number] 2.16.840.1.511508.3.579.2.3 1957 Unknown [id number] 2.16.840.1.541331.3.579.2.593 1957 Unknown [id number] 2.16.840.1.211688.3.579.2.59 1957 Unknown [id number] 2.16.840.1.251588.3.579.2.593 1957 Unknown [id number] 2.16.840.1.613239.3.579.2.593 1957 Unknown [id number] 2.16.840.1.430924.3.579.2.593 1957 Unknown [id number] 2.16.840.1.365089.3.579.2.593 1957 Unknown [id number] 2.16.840.1.662915.3.579.2.593 1957 Unknown [id number] 2.16.840.1.304010.3.579.2.593 1957 Unknown [id number] 2.16.840.1.242290.3.579.2.593 1957 Unknown [id number] 2.16.840.1.680014.3.579.2.593 1957 Unknown [id number] 2.16.840.1.846383.3.579.2.59 1957 Unknown [id number] 2.16.840.1.657634.3.579.2.593 1957 Unknown [id number] 2.16.840.1.761279.3.579.2. 1957 Unknown [id number] 2.16.840.1.561735.3.579.2.593 1957 Unknown [id number] 2.16.840.1.279149.3.579.2.593 1957 Unknown [id number] 2.16.840.1.300958.3.579.2.593 1957 Unknown [id number] 2.16.840.1.167403.3.579.2.593 1957 Unknown [id number] 2.16.840.1.996421.3.579.2.593 1957 Unknown [id number] 2.16.840.1.758946.3.579.2.593 1957 Unknown [id number] 2.16.840.1.155905.3.579.2.593 1957 Unknown [id number] 2.16.840.1.135229.3.579.2.59 1957 Unknown [id number] 2.16.840.1.068024.3.579.2.593 1957 Unknown [id number] 2.16.840.1.431415.3.579.2.593 1957 Unknown [id number] 2.16.840.1.065067.3.579.2.593 1957 Unknown [id number] 2.16.840.1.348510.3.579.2.59 1957 Unknown [id number] 2.16.840.1.598670.3.579.2.59 1957 Unknown [id number] 2.16.840.1.059572.3.579.2.59 1957 Unknown [id number] 2.16.840.1.052304.3.579.2.59 1957 Unknown [id number] 2.16.840.1.673410.3.579.2.59 1957 Unknown [id number] 2.16.840.1.543239.3.579.2.59 1957 Unknown [id number] 2.16.840.1.554536.3.579.2.593 1957 Unknown [id number] 2.16.840.1.758057.3.579.2.59 1957 Unknown [id number] 2.16.840.1.508516.3.579.2.593 1957 Unknown [id number] 2.16.840.1.354151.3.579.2.593 1957 Unknown [id number] 2.16.840.1.841277.3.579.2.59 1957 Unknown [id number] 2.16.840.1.224355.3.579.2.59 1957 Unknown [id number] 2.16.840.1.890828.3.579.2.593 1957 Unknown [id number] 2.16.840.1.713060.3.579.2.593 1957 Unknown [id number] 2.16.840.1.079778.3.579.2.128 1957 Unknown [id number] 2.16.840.1.816889.3.579.2.125 1957 Unknown [id number] 2.16.840.1.323421.3.579.2.1258 1957 Unknown [id number] 2.16.840.1.048967.3.579.2.1258 1957 Unknown [id number] 2.16.840.1.969798.3.579.2.1258 1957 Unknown [id number] 2.16.840.1.839073.3.579.2.1258 1957 Unknown [id number] 2.16.840.1.022387.3.579.2.1258 1957 Unknown [id number] 2.16.840.1.249983.3.579.2.1258 1957 Unknown [id number] 2.16.840.1.469162.3.579.2.1285 1957 Unknown [id number] 2.16.840.1.474740.3.579.2.1285 1957 Unknown [id number] 2.16.840.1.410074.3.579.2.1285 1957 Unknown [id number] 2.16.840.1.660969.3.579.2.1285 1957 Unknown [id number] 2.16.840.1.971719.3.579.2.1285 1957 Unknown [id number] 2.16.840.1.310711.3.579.2.1286 1957 Unknown [id number] 2.16.840.1.962704.3.579.2.1286 1957 Unknown [id number] 2.16.840.1.891998.3.579.2.1286 1957 Unknown [id number] 2.16.840.1.336614.3.579.2.1286 Medicare [id number] 2.16840.1.067860.19 Unknown O [id number] Unknown [employer] [id number] Unknown [id number] 2.16.840.1.143871.3.579.2.531 Unknown [id number] 2..840.1.804780.3.579.2.531 Social History Date Type Detail Facility Unknown if ever smoked [email or web address] Other Start: 04-11-2022 End: 04-12-2023 Sex Assigned At [facility] Start: 10-19-2021 End: 01-18-2022 Tobacco smoking status NHIS Never smoked tobacco (finding) [facility] Start: 1955 Sex Assigned At Male [facility] Start: 01-18-2022 Tobacco use and exposure Smokeless tobacco non-user [facility] Start: 04-12-2023 Alcohol intake Current drinker of alcohol (finding) [facility] Start: 04-11-2022 End: 04-12-2023 History of Social function [facility] Do you belong to any clubs or organizations such as nondenominational groups, unions, fraternal or athletic groups, or school groups? No [facility] Are you now , , , , never or living with a partner? [facility] How often to you hav e a drink containing alcohol? 2-4 times a month [facility] How many standard dr inks containing alcohol do you have on a typical day? 1 or 2 [facility] [employer] How often do you hav e 6 or more drinks on 1 occasion? Never [facility] [employer] [facility] How hard is it for y ou to pay for the very basics like food, housing, medical care, and heating Somewhat hard [facility] [employer] [facility] Adolescent depressio n screening assessment 0 [facility] [employer] [facility] Do you feel stress - tense, restless, nervous, or anxious, or unable to sleep at night because your mind is troubled all the time - these days [OSQ] Not at all [facility] [facility] Start: 04-11-2022 Education 21 [employer] Start: 09-10-2019 Alcohol Comment social [facility] Start: 1955 Sex Assigned At Not on file [employer] [facility] Medical Equipment Procedure Code Equipment Code Equipment Origin al Text Equipment Identifier Dates Gft Hmn Tiss 250 mg Amniofill - [id number] - [id number] Start: 12-27-2018 Gft Sft Tis Matr istem - [id number] - [id number] Start: 01-27-2019 Tiss Grafix Prim e 3x4cm - [id number] - [id number] Start: 09-15-2019 Evera Mri Xt Vr Defibrillator [id number] Start: 07-13-2015 Sprint Quattro S ecure Mri [id number] Start: 07-13-2015 Tissue Epifix 2x 4 Cm - [id number] - [id number] Start: 12-27-2018 USE DIRECTED FOUR TIMES DAILY [id number] Start: 08-07-2022 Goals Date Patient Goal Desired Activity /State Personal health goal Comment on above: Formatting of this n ote might be different from the original. Evaluation of progress towards goal: Safe dc transition from hospital to home with family support. Resume with [facility]. Personal health goal Comment on above: Formatting of this n ote might be different from the original. Evaluation of progress towards goal: Pt plans to discharge home with [facility]. Functional Status Date Assessment Result Facility 10-27-2021 Functional status Patient is Pro gressing Toward Baseline [facility] Work Phone: 10-21-2021 Functional status Patient is Pro gressing Toward Baseline [facility] Work Phone: 10-18-2021 Functional status Patient at Baseline [facility] Work Phone: Mental Status Date Assessment Result Facility 10-27-2021 Cognitive function Cognitive Sta tus Patient at Baseline [facility] Work Phone: 10-21-2021 Cognitive function Cognitive Sta tus Patient is Progressing Toward Baseline [facility] Work Phone: 10-18-2021 Cognitive function Cognitive Sta tus Patient at Baseline [facility] Work Phone: Clinical Notes 01-05-2021 to 04-12-2023 Terry Lock, [employer] - 04/12/2023 11:30 AM Sue High [...] arthropathy, with long-term current use of insulin ([facility]) Chronic systolic congestive heart failure ([facility]) Coronary artery disease involving hamilton coronary artery of hamilton heart without angina pectoris Hearing loss Personal history of colonic polyps Colon polyps Diverticulosis large intestine w/o perforation or abscess w/o bleeding Chronic obstructive pulmonary disease ([facility]) 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 Gastroesophageal reflux disease with esophagitis without hemorrhage Stage 3b chronic kidney disease ([facility]) Subepithelial esophageal mass Sarcoidosis Diabetic retinopathy ([facility]) Obstructive sleep apnea syndrome Diabetic neuropathy ([facility]) Bilateral sensorineural hearing loss Unilateral complete AKA, right ([facility]) Allergies Allergen Reactions Doxycycline Other reaction(s): Chest Pain Levofloxacin Other reaction(s): Chest Pain Chlorpheniramine Dextromethorphan Hbr Itching Jumaxsrax-Ep-Ihaixyvkhiwji Guaifenesin Other reaction(s): Itching of skin Hydrocodone [...] morning. 90 tablet 1 flash glucose sensor (STEERads LELO 2 SENSOR) kit CHANGE EVERY 2 [...] involving left anterior descending (LAD) coronary artery ([facility]) 05/28/2015 Hyperlipidemia Interstitial lung disease ([facility]) Left ventricular failure ([facility]) MRSA (methicillin resistant staph aureus) culture positive Peptic ulceration Presence of automatic (implantable) cardiac defibrillator ST elevation (STEMI) myocardial infarction ([facility]) 2015 x 5 stents Stage 3b chronic kidney disease ([facility]) 04/22/2020 Unilateral complete AKA, right ([facility]) 03/31/2022 No data recorded No data recorded No data recorded Past Surgical History: Procedure Laterality Date ANKLE LIGAMENT RECONSTRUCTION Right 2020 APPLICATION AMNIOFILL Right 12/27/2018 Performed by Arlen Olguin DPM at [facility] APPLICATION WOUND VAC ( NOT done) Right 01/27/2019 Performed by Terry Hector DPM at [facility] CARDIAC DEFIBRILLATOR PLACEMENT 07/13/2015 [employer] COLONOSCOPY N/A 04/07/2020 Performed by Deon Braxton DO at [facility] DEBRIDEMENT FOOT EXCISION RT FOOT ULCER, APPLICATION BIOLOGIC SKIN GRAFT RT FOOT, APPLICATION OF WOUND VAC RT FOOT Right 01/27/2019 Performed by Terry Hector DPM at [facility] DEBRIDEMENT FOOT WITH APPLICATION OF GRAFIX Right 09/15/2019 Performed by Terry Hecotr DPM at [facility] ESOPHAGOGASTRODUODENOSCOPY N/A 05/19/2020 Performed by Deon Braxton DO at [facility] EXCISION 5TH METATARSAL Right 12/30/2018 Performed by Terry Hector DPM at [facility] FOOT SURGERY 07/2020 [facility] Bilateral LAPAROSCOPIC CHOLECYSTECTOMY N/A 06/21/2020 Performed by Deon Justice MD at [facility] LENGTHENING TENDON RIGHT, PLANTAR FASCIOTOMY Right 09/15/2019 Performed by Terry Hector DPM at [facility] SKIN GRAFT LOWER EXTREMITY (APPLICATION OF BIOLOGIC SKIN GRAFT RT FOOT Right 01/27/2019 Performed by Terry Hector DPM at [facility] Family History Problem Relation Age of [...] min Stress: No Stress Concern Present (04/11/2022) [employer] [place] [employer] - Occupational Stress Questionnaire Feeling of Stress : Not at all Social Connections: Moderately Integrated (04/11/2022) Social Connection and Isolation Panel [NHANES] Frequency of Communication with Friends and Family: Twice a week Frequency of Social Gatherings with Friends and Family: Twice a week Attends Nondenominational Services: 1 to 4 times per year [...] Verbalized understanding 2. Coronary artery disease involving hamilton coronary artery of hamilton heart without angina pectoris -aspirin, statin, beta-doreen [...] Referring Physician: Deon Braxton DO [address] [place] [address] FANNY Owens 04/12/23 1145 Office note faxed to Dr Lee for clearance documented in this encounter [facility] 12-05-2022 Evaluation note Encounter Date Diagnosis Assessment Notes Dec, Charcot foot due to diabetes mellitus (ICD-10 - E11.610) Dec, Status post transmetatarsal amputation of left foot (ICD-10 - Z89.432) as above, RX written. Dec, Hx of right BKA (ICD-10 - Z89.511) [email or web address] Other 07-06-2023 Evaluation note* Encounter Date Diagnosis [...] months. Sep, Peripheral polyneuropathy (ICD-10 - G62.9) [email or web address] Other 05-03-2023 Evaluation note* Encounter Date Diagnosis [...] elsewhere classified, subsequent encounter (ICD-10 - T81.31XD) [email or web address] Other 03-03-2023 Evaluation note* Encounter Date Diagnosis [...] this time. Patient is following up at [facility] for changes to prosthetic. I did recommend use of a cane to help offload some weight which may reduce his pain. Patient voiced understanding and states no further questions at this time. May, Other specified postprocedural states (ICD-10 - Z98.890) May, Postoperative wound dehiscence, initial encounter (ICD-10 - T81.31XA) [email or web address] Other 01-27-2023 Evaluation note* Encounter Date Diagnosis [...] wound dehiscence, initial encounter (ICD-10 - T81.31XA) [email or web address] Other 01-11-2023 Evaluation note* Encounter Date Diagnosis [...] wound dehiscence, initial encounter (ICD-10 - T81.31XA) [email or web address] Other 12-14-2022 Evaluation note* Encounter Date Diagnosis [...] wound dehiscence, initial encounter (ICD-10 - T81.31XA) [email or web address] Other 11-08-2022 Evaluation note* Encounter Date Diagnosis Assessment Notes Treatment Notes Treatment Clinical Notes Jan, Right below-knee amputee (ICD-10 - Z89.511) Proceed with K3 level, transtibial prosthesis, preparatory. Diligent monitoring of residual limb. Stop wearing prosthesis immediately if wound should worsen, develop erythema, increased pain, etc. Wearing schedule. [employer] Other 11-04-2022 Evaluation note* Encounter Date Diagnosis [...] wound dehiscence, initial encounter (ICD-10 - T81.31XA) [facility] Other 10-21-2022 Evaluation note* Encounter Date Diagnosis [...] wound dehiscence, initial encounter (ICD-10 - T81.31XA) [facility] Other 10-07-2022 Evaluation note* Encounter Date Diagnosis [...] wound dehiscence, initial encounter (ICD-10 - T81.31XA) [facility] Other 09-23-2022 Evaluation note* Encounter Date Diagnosis [...] wound dehiscence, initial encounter (ICD-10 - T81.31XA) [facility] Other 09-14-2022 Evaluation note* Encounter Date Diagnosis [...] wound dehiscence, initial encounter (ICD-10 - T81.31XA) [facility] Other 09-09-2022 Evaluation note* Encounter Date Diagnosis [...] infectious disease. Faxed wound center information to [phone] and left a voicemail. Dec, Other specified postprocedural states (ICD-10 - Z98.890) Dec, Postoperative wound dehiscence, initial encounter (ICD-10 - T81.31XA) [facility] Other 08-30-2022 History and physical note Author Reddy Brandt [facility] November 29, 2021 11:49am Note Date/Time November 29, 2021 11 :32am [facility] [address] [place] [address] Orthopedic Surgery H&P Signed Patient: Anai Goodman MR#: [id number] : 1955 Acct:[id number] Age/Sex: 66 / M Adm Date: 2 Loc: [place] Room: Type: [facility] Attending Dr: Reddy Brandt DO Copies [...] poor healing. I have advised against the cadmium burner use of narcotic pain medication. I have advised to follow all post-operative instructions in order to obtain the best outcome. Informed consent has been verbally affirmed and signed as indicated. Documented By: Reddy Brandt DO 11/29/21 1129 Signed By: <Electronically signed by Reddy Brandt DO> 11/29/21 1141 [facility] Work Phone: 1(852) 435-682008-29-2022 Evaluation note* Encounter Date Diagnosis Assessment Notes [...] remova l of sutures (ICD-10 - Z48.02) [facility] Other 08-03-2022 Evaluation note* Encounter Date Diagnosis [...] was in understanding and wishes to proceed. [facility] Other 08-01-2022 Evaluation note* Encounter Date Diagnosis [...] move forward with treatment at this time. [facility] Other 07-27-2022 Progress note Author Ghanshyam Kaye [facility] October 25, 2021 11:37pm Note Date/Time October 25, 2021 11:3 7pm [facility] [address] [place] [address] Physiatry(Rehab) Progress Note Signed Patient: Anai Goodman MR#: [id number] : 1955 Acct:[id number] Age/Sex: 66 / M Adm Date: 2 Loc: Room: 3X8252-2 Type : ADM IN Attending Dr: Ghanshyam Kaye MD Copies to: ~ Date of Service: 10/25/2021 Subjective Subjective Narrative: Mr. Goodman is a 66 year old male who is admitted to [facility] inpatient rehab for strengthening s/p planned [...] % (Auto) 69.1 Lymph % (Auto) 9.4 Peñuelas % (Auto) 14.5 Eos % (Auto) 6.7 Baso % (Auto) 0.3 Neut # (Auto) 4.0 Lymph # (Auto) 0.5 L Peñuelas # (Auto) 0.8 Eos # (Auto) 0.4 [...] MPV Neut % (Auto) Lymph % (Auto) Peñuelas % (Auto) Eos % (Auto) Baso % (Auto) Neut # (Auto) Lymph # (Auto) Peñuelas # (Auto) Eos # (Auto) Baso # [...] mg 10/21/21 17:51 Bisacodyl 10 Mg Supp.Rect FL 10/21/22 17:50 DAILY PRN Constipation Bumetanide 1 [...] 17:51 Docusate Enema 283 Mg/5 Ml Enema FL 10/21/22 17:50 DAILY PRN Constipation Insulin Aspart 0 units 10/21/21 17:00 10/25/21 20:27 Insulin Aspart 300 Units/3 Ml Insuln.Pen SUBCUT 10/21/22 16:59 7 units TID.WM.HS CB Administration Protocol Insulin Aspart 0 units 10/21/21 17:00 10/25/21 20:30 Insulin Aspart 300 Units/3 Ml Insuln.Pen SUBCUT 10/21/22 16:59 Not Given TID.WITH.MEALS.[facility] Protocol Insulin Detemir 40 units 10/21/21 [...] equipment to enhance the patient's a functional holiness Ensure adequate nutrition and hydration Sleep: Denies any issues Pain: Denies any issues Discharge planning: Home with in 7 to 10 days. I spent greater than 25 minutes for services, including tnzh-lw-gdhu encounter with the patient, discussion of the case, plan of care, and exam; and xgohaod-mk-arnd activities, such as reviewing pertinent small business consultant documentation, recent therapy notes, laboratory and radiology studies, and discussionof case with care team including nursing, spring encaser, and therapists. More than 50 % of time was spent on patient/family counseling or coordination ofcare. Documented By: Ghanshyam Kaye MD 10/25/212333 Signed By: <Electronically signed by Ghanshyam Kaye MD> 10/25/212336 [facility] Work Phone: 1([phone]) 185-674207-26-2022 Progress note Author Ghanshyam Kaye [facility] October 25, 2021 10:20am Note Date/Time October 23, 2021 11:5 7am [facility] [address] [place] [address] Physiatry(Rehab) Progress Note Signed Patient: Anai Goodman MR#: [id number] : 1955 Acct:[id number] Age/Sex: 66 / M Adm Date: 2 Loc: Room: [address] [place] [address] Type : ADM IN Attending Dr: Ghanshyam Kaey MD Copies to: ~ <Chante Narayan APRN - Last Filed: 10/23/21 11:57> Date of Service: 10/23/2021 Subjective <Chante Narayan APRN - Last Filed: 10/23/21 11:57> Subjective Narrative: Mr. Goodman is a 66 year old male who is admitted to [facility] inpatient rehab for strengthening s/p planned [...] complaints, except as documented Exam <Chante Narayan, MERCURY WASHER - Last Filed: 10/23/21 11:57> Physical Exam [...] Tablet PO 10/21/22 21:59 100 mg QHS [facility] Administration Atorvastatin Calcium 80 mg 10/22/21 09:00 10/23/21 09:07 Atorvastatin 80 Mg Tablet PO 10/22/22 08:59 80 mg QAM CB Administration Bisacodyl 10 mg 10/21/21 17:51 Bisacodyl 10 Mg Supp.Rect FL 10/21/22 17:50 DAILY PRN Constipation Bumetanide 2 mg 10/21/21 21:00 10/23/21 09:07 Bumetanide 2 Mg Tablet PO 10/21/22 20:59 2 mg BID CB Administration Carvedilol 6.25 mg 10/21/21 21:00 10/23/21 09:07 Carvedilol 6.25 Mg Tablet PO 10/21/22 20:59 6.25 mg BID [facility] Administration Docusate Sodium 100 mg 10/21/21 17:51 Docusate 100 Mg Capsule PO 10/21/22 17:50 BID PRN Constipation Docusate Sodium 283 mg 10/21/21 17:51 Docusate Enema 283 Mg/5 Ml Enema FL 10/21/22 17:50 DAILY PRN Constipation Insulin Aspart 0 units 10/21/21 17:00 10/23/21 09:05 Insulin Aspart 300 Units/3 Ml Insuln.Pen SUBCUT 10/21/22 16:59 1 units TID.WM.[facility] Administration Protocol Insulin Aspart 0 units 10/21/21 17:00 10/23/21 09:06 Insulin Aspart 300 Units/3 Ml Insuln.Pen SUBCUT 10/21/22 16:59 4 units TID.WITH.MEALS.[facility] Administration Protocol Insulin Detemir 40 units 10/21/21 22:00 10/22/21 20:27 Insulin Detemir 300 Units/3 Ml Insuln.Pen SUBCUT 10/21/22 21:59 40 units QHS [facility] Administration Lactulose 30 gm 10/21/21 17:51 [...] Tablet PO 10/22/22 08:59 25 mg QAM [facility] Administration Vitamin D 250 mcg 10/21/21 21:00 10/23/21 09:07 Cholecalciferol 125 Mcg (5,000 Units) Tablet PO 10/21/22 20:59 250 mcg BID CB Administration Assessment/Plan <Chante Narayan, MERCURY WASHER - Last Filed: 10/23/21 11:57> Assessment/Plan (1) [...] equipment to enhance the patient's a functional holiness Ensure adequate nutrition and hydration Sleep: Denies any issues Pain: Denies any issues Discharge planning: Home with in 7 to 10 days. I spent greater than 15 minutes for services, including wzak-ys-uqju encounter with the patient, discussion of the case, plan of care, and exam; and xwxkcvg-uc-lbxw activities, such as reviewing pertinent small business consultant documentation, recent therapy notes, laboratory and radiology studies, and discussion of case with care team including physician, nursing, spring encaser, and therapists. More than 50 % of [...] the chart, including currentorders, allied health and small business consultant notes, labs/imaging and plan of care as above. Documented By: Chante Narayan APRN 10/23/21 1 150 Signed By: <Electronically signed by KRUNAL Narayan> 10/23/21 1157 <Electronically signed by Ghanshyam Kaye MD> 10/25/[address] [facility] Work Phone: 1(328) 421-909807-26-2022 History and physical note Author Ghanshyam Kaye [facility] October 25, 2021 9:36am Note Date/Time October 22, 2021 9:59 am [facility] [address] [place] [address] Physiatry (Rehab) H&P Signed Patient: Anai Goodman MR#: [id number] : 1955 Acct:[id number] Age/Sex: 66 / M Adm Date: 2 Loc: Room: [address] [place] [address] Type : ADM IN Attending Dr: Ghanshyam [...] male who is admitted to [facility] inpatient rehab for strengthening s/p planned [...] with one-step to enter. PMFSH <Chante Narayan, MERCURY WASHER - Last Filed: 10/22/21 10:24> Vaccinated for [...] Bisacodyl (Bisacodyl 10 Mg Supp.Rect) 10 mg FL DAILY PRN PRN Reason: Constipation Stop: 10/21/22 [...] Enema 283 Mg/5 Ml Enema) 283 mg FL DAILY PRN PRN Reason: Constipation Stop: 10/21/22 17:50 Insulin Aspart (Insulin Aspart 300 Units/3 Ml Insuln.Pen) 0 units SUBCUT TID.WM.[facility]; Protocol Stop: 10/21/22 16:59 Last Admin: 10/22/21 08:01 Dose: 1 units Insulin Aspart (Insulin Aspart 300 Units/3 Ml Insuln.Pen) 0 units SUBCUT TID.WITH.MEALS.[facility]; Protocol Stop: 10/21/22 16:59 Last Admin: 10/22/21 08:01 Dose: 4 units Insulin Detemir (Insulin Detemir 300 Units/3 Ml Insuln.Pen) 40 units SU[facility]UT [facility] Stop: 10/21/22 21:59 Last Admin: 10/21/21 22:02 Dose: 40 units Lactulose (Lactulose 20 Gm/30 Ml Udc) 30 gm PO DAILY PRN PRN Reason: Constipation Stop: 10/21/22 17:50 Losartan Potassium (Losartan 25 Mg Tablet) 25 mg PO QAM [facility] Stop: 10/22/22 08:59 Last Admin: 10/22/21 08:05 Dose: 25 mg Magnesium Oxide (Magnesium Oxide 400 Mg Tablet) 400 mg PO [facility] Stop: 10/22/22 08:59 Last Admin: 10/22/21 08:05 Dose: 400 mg Multivitamins (Multivitamin 1 Tab Tablet) 1 tab PO QAM [facility] Stop: 10/22/22 08:59 Last Admin: 10/22/21 08:05 Dose: 1 tab Nitroglycerin (Nitroglycerin 0.4 Mg Tab.Subl) 0.4 mg SUBLINGUAL DAILY PRN PRN Reason: Chest Pain Stop: 10/21/22 15:49 Rivaroxaban (Rivaroxaban 10 Mg Tablet) 10 mg PO DAILY [facility] Stop: 10/22/22 08:59 Last Admin: 10/22/21 08:06 Dose: 10 mg Fluticasone/Salmeterol (Fluticasone/Salmeterol 232-14 Mcg 60 Puff Inhaler) 1 puff INHALATION BID [facility] Stop: 10/21/22 20:59 Last Admin: 10/22/21 05:10 Dose: 1 puff Sennosides (Sennosides 8.6 Mg Tablet) 2 tab PO DAILY@12 PRN PRN Reason: If no BM in 2 days Stop: 10/22/22 11:59 Sodium Chloride (Sodium Chloride 0.9 % 10 Ml Syringe) 0 ml IV-PUSH PRN PRN PRN Reason: Flush Stop: 10/21/22 17:50 Spironolactone (Spironolactone 25 Mg Tablet) 25 mg PO QAM [facility] Stop: 10/22/22 08:59 Last Admin: 10/22/21 08:05 Dose: 25 mg Vitamin D (Cholecalciferol 125 Mcg (5,000 Units) Tablet) 250 mcg PO BID [facility] Stop: 10/21/22 20:59 Last Admin: 10/22/21 [...] good Judgment: judgment good Results <Chante Narayan, MERCURY WASHER - Last Filed: 10/22/21 10:24> Labs Labs: Laboratory Results - last 24 hr 10/21/21 10/22/21 10/22/21 20:20 05:59 06:19 Corrected WBC 6.6 Uncorrected WBC Count 6.6 RBC 3.99 Hgb 11.8 L Hct 34.6 L MCV 86.7 MCH 29.5 MCHC 34.0 RDW 17.8 H Plt Count 148 L MPV 8.8 Neut % (Auto) 70.1 Lymph % (Auto) 10.0 Peñuelas % (Auto) 14.8 Eos % (Auto) 4.5 Baso % (Auto) 0.6 Neut # (Auto) 4.6 Lymph # (Auto) 0.7 L Peñuelas # (Auto) 1.0 H Eos # (Auto) [...] MPV Neut % (Auto) Lymph % (Auto) Peñuelas % (Auto) Eos % (Auto) Baso % (Auto) Neut # (Auto) Lymph # (Auto) Peñuelas # (Auto) Eos # (Auto) Baso # [...] Discharge Destination: Home Rehabilitation [facility]: 05.4 Primary Diagnosis: Right BKA Patient?s/Family?s [...] 24 hour daily monitoring and intervention from Proof Load Mechanic as well as other consulting physicians including internal medicine as well as 24 hour daily field observer nursing - for medical safe / optimal [...] equipment to enhance the patient's a functional holiness Ensure adequate nutrition and hydration Sleep: Denies any issues Pain: Denies any issues Discharge planning: Home with in 7 to 10 days. I spent greater than 30 minutes for services, including nfrs-pw-uuhp encounter with the patient, discussion of the case, plan of care, and exam; and jccdubw-dk-jeij activities, such as reviewing pertinent small business consultant documentation, recent therapy notes, laboratory and radiology studies, and discussion of case with care team including physician, nursing, spring encaser, and therapists. More than 50 % of [...] Allied health note review, nursing note review, small business consultant note review, discussion with nursing and [...] chart, including current orders, allied health and small business consultant notes, labs/imaging and performed rosado elements of exam and I formulated the plan of care and facilitated the medical decision making and confirmed the nurse practitioner note, as above Documented By: Chante Narayan APRN 10/22/21 0 949 Signed By: <Electronically signed by KRUNAL Narayan> 10/22/21 1024 <Electronically signed by Ghanshyam Kaye MD> 10/25/21 0936 [facility] Work Phone: 1(836) 566-184107-24-2022 Progress note Author Bronywn Alegre [facility] October 23, 2021 3:11pm Note Date/Time October 23, 2021 3:11 pm [facility] [address] [place] [address] Hospitalist Progress Note Signed Patient: Anai Goodman MR#: [id number] : 1955 Acct:[id number] Age/Sex: 66 / M Adm Date: 2 Loc: Room: [address] [place] [address] Type : ADM IN Attending Dr: Ghanshyam [...] mg 10/21/21 17:51 Bisacodyl 10 Mg Supp.Rect FL 10/21/22 17:50 DAILY PRN Constipation Bumetanide 1 [...] 17:51 Docusate Enema 283 Mg/5 Ml Enema FL 10/21/22 17:50 DAILY PRN Constipation Insulin Aspart 0 units 10/21/21 17:00 10/23/21 13:13 Insulin Aspart 300 Units/3 Ml Insuln.Pen SUBCUT 10/21/22 16:59 2 units TID.WM. CB Administration Protocol Insulin Aspart 0 units 10/21/21 17:00 10/23/21 13:14 Insulin Aspart 300 Units/3 Ml Insuln.Pen SUBCUT 10/21/22 16:59 5 units TID.WITH.MEALS.[facility] Administration Protocol Insulin Detemir 40 units [...] Losartan, Spironolactone 2.? GRACY on CPAP 3. [id number] 7.3, continue detemir, SSI 4. CKD 3?trend [...] out patient providers to obtain [facility] record entirely to follow up on illnesses, symptoms, abnormal findings that I have and have not addressed duringthis encounter and hospitalization in out patient setting. Documented By: Bronwyn Alegre MD 10/23/21 3555 Signed By: <Electronically signed by Bronwyn Alegre MD> 10/23/[address] [facility] Work Phone: [phone]) 161-733407-24-2022 Consult note Author Bronwyn Alegre [facility] October 23, 2021 7:04am Note Date/Time October 22, 2021 4:18 pm [facility] [address] [place] [address] Hospitalist Consult Note Signed Patient: Anai Goodman MR#: [id number] : 1955 Acct:[id number] Age/Sex: 66 / M Adm Date: 2 Loc: Room: [address] [place] [address] Type : ADM IN Attending Dr: Ghanshyam [...] negative unless noted below or in HPI [facility] Attestation Statement: The following information was [...] mg 10/21/21 17:51 Bisacodyl 10 Mg Supp.Rect FL 10/21/22 17:50 DAILY PRN Constipation Bumetanide 2 [...] 17:51 Docusate Enema 283 Mg/5 Ml Enema FL 10/21/22 17:50 DAILY PRN Constipation Insulin Aspart 0 units 10/21/21 17:00 10/22/21 12:45 Insulin Aspart 300 Units/3 Ml Insuln.Pen SUBCUT 10/21/22 16:59 2 units TID.WM.[facility] Administration Protocol Insulin Aspart 0 units 10/21/21 17:00 10/22/21 12:46 Insulin Aspart 300 Units/3 Ml Insuln.Pen SUBCUT 10/21/22 16:59 2 units TID.WITH.MEALS.[facility] Administration Protocol Insulin Detemir 40 units 10/21/21 22:00 10/21/21 22:02 Insulin Detemir 300 Units/3 Ml Insuln.Pen SUBCUT 10/21/22 21:59 40 units QHS [facility] Administration Lactulose 30 gm 10/21/21 17:51 [...] % (Auto) 70.1, Lymph % (Auto) 10.0, Peñuelas % (Auto) 14.8, Eos % (Auto) 4.5, Baso % (Auto) 0.6, Neut # (Auto) 4.6, Lymph # (Auto) 0.7 L, Peñuelas # (Auto) 1.0 H, Eos # (Auto) [...] Losartan, Spironolactone 2.? GRACY on CPAP 3. [id number] 7.3, continue detemir, SSI 4. CKD 3?trend labs Documented By: ABDIRASHID Olmedo 2 1618 Signed By: <Electronically signed by ANP-BC Faviola Matias> 10/22/21 1658 <Electronically signed by Bronwyn Alegre MD> 10/23/[address] [facility] Work Phone: 1(588) 275-992207-22-2022 Progress note Author Rodriguez Loera [facility] October 21, 2021 8:37am Note Date/Time October 20, 2021 11:0 8am [facility] [address] [place] [address] Hospitalist Progress Note Signed Patient: Anai Goodman MR#: [id number] : 1955 Acct:[id number] Age/Sex: 66 / M Adm Date: 2 Loc: 4N Room: 9O3103-4 Type : ADM IN Attending Dr: Reddy [...] Lactated Ringers IV 10/18/22 07:29 Not Given .[id number] CB Insulin Aspart 0 units 10/18/21 08:00 [...] signed by Rodriguez Loera MD> 10/21/21 0837 [facility] Work Phone: 1(424) 910-765407-21-2022 Progress note Author Rodriguez Loera [facility] October 20, 2021 8:45am Note Date/Time October 19, 2021 11:2 8am [facility] [address] [place] [address] Hospitalist Progress Note Signed Patient: Anai Goodman MR#: [id number] : 1955 Acct:[id number] Age/Sex: 66 / M Adm Date: 2 Loc: 4N Room: [address] [place] [address] Type : ADM IN Attending Dr: Reddy [...] Lactated Ringers IV 10/18/22 07:29 75 mls/hr .[id number] CB Administration Insulin Aspart 0 units 10/18/21 [...] signed by Rodriguez Loera MD> 10/20/[address] [facility] Work Phone: [phone]) 174-619007-20-2022 Progress note Author Reddy Brandt [facility] October 19, 2021 12:11pm Note Date/Time October 19, 2021 12:1 1pm [facility] [address] [place] [address] Orthopedic Progress Note Signed Patient: Anai Goodman MR#: [id number] : 1955 Acct:[id number] Age/Sex: 66 / M Adm Date: 2 Loc: 4N Room: [address] [place] [address] Type : ADM IN Attending Dr: Reddy [...] signed by Reddy Brandt DO> 10/19/21 1211 [facility] Work Phone: 1([phone]) 231-444907-20-2022 Consult note Author Stewart Lucio [facility] October 19, 2021 1:42am Note Date/Time October 19, 2021 1:11 am [facility] [address] [place] [address] Hospitalist Consult Note Signed Patient: Anai Goodman MR#: [id number] : 1955 Acct:[id number] Age/Sex: 66 / M Adm Date: 2 Loc: 4N Room: [address] [place] [address] Type : ADM IN Attending Dr: Reddy [...] negative unless noted in the HPI below [facility] Attestation Statement: The following information was [...] Lactated Ringers IV 10/18/22 07:29 75 mls/hr .[id number] CB Administration Cefazolin Sodium 1 gm in [...] Insuln.Pen SUBCUT 10/18/22 07:59 6 units TID.WM.[facility] Administration Protocol Insulin Aspart 0 units 10/18/21 17:00 10/18/21 23:37 Insulin Aspart 300 Units/3 Ml Insuln.Pen SUBCUT 10/18/22 16:59 Not Given TID.WM.HS [facility] Insulin Detemir 40 units 10/18/21 22:00 10/18/21 21:39 Insulin Detemir 300 Units/3 Ml Insuln.Pen SUBCUT 10/18/22 21:59 40 units QHS [facility] Administration Losartan Potassium 25 mg 10/19/21 09:00 Losartan 25 Mg Tablet PO 10/19/22 08:59 QAM [facility] Magnesium Oxide 400 mg 10/19/21 09:00 Magnesium Oxide 400 Mg Tablet PO 10/19/22 08:59 QAM [facility] Multivitamins 1 tab 10/19/21 09:00 Multivitamin 1 Tab Tablet PO 10/19/22 08:59 QAM [facility] Nitroglycerin 0.4 mg 10/18/21 15:44 Nitroglycerin [...] 60 Puff Inhaler INHALATION 10/19/22 08:59 BID [facility] Sodium Chloride 0 ml 10/18/21 14:00 [...] Lucio MD> 10/19/[address] [facility] Work Phone: 1(121) [phone] Evaluation note* Encounter Date Diagnosis Assessment Notes [...] poor healing. I have advised against the cadmium burner use of narcotic pain medication. I have [...] osteomyelitis of right tibia (ICD-10 - M86.661) [facility] Other 07-07-2022 Evaluation note* Encounter Date Diagnosis Assessment Notes Treatment Notes Treatment Clinical Notes Sep, Other chronic osteomyelitis of right tibia (ICD-10 - M86.661) [facility] Other 07-07-2022 Evaluation note* Encounter Date Diagnosis [...] place his pacemaker into MRI mode. Anyway location and measurement technician was very helpful and she is [...] worse they are to call me WALT. [facility] Other 06-09-2022 Evaluation note* Encounter Date Diagnosis [...] to a suppressive dose at that time [facility] Other 11-23-2021 NoteChief Complaint Basal cell carcinoma [...] 03/03/2021 PATIENT : 1955 LOCATION OF PROCEDURE: [facility] SURGEON: Chirag Gutierrez DO INFORMED CONSENT: Obtained by and on file at [facility] CC: [Basal cell carcinoma left ear [...] get a repeat audiogr (more content not included)...[facility]10-11-2021 NoteChief Complaint Open wound Left ear History of Present Illness PLANNED PROCEDURE: Excision and preparation of surgical site, complex plastics myocutaneous advancement flap tear of left ear defect DATE OF PROCEDURE: 01/11/2021 PATIENT : 1955 LOCATION OF PROCEDURE: [facility], SURGEON: Chirag Gutierrez DO INFORMED CONSENT: Obtained by and on file at [facility] CC: Basal cell carcinoma left ear [...] reconstruction amputation of le (more content not included)...[facility] 01-05-2021 NoteChief Complaint MOHs procedure to left [...] Dr. Freed. Previous pathology by physician in [place] about 1 year ago. PMHx of multiple [...] This patient presented to the [facility] with a chief concern of skin [...] and corroborated preoperatively wit (more content not included)...[facility]10-06-2021 NoteClinical Information Procedure: Excision with frozen section left ear Pre-operative diagnosis: Basal cell carcinoma Outside pathology report from [facility] was received with accession number [id number]. SP Specimen A Skin of left ear, [...] skin without gross lesi (more content not included)...[facility]:Performed By: #### SPR ####[facility] (DEFAULT)[address] [place], [place] [address]Discharge summary Author Ghanshyam Kaye [facility] October 28, 2021 10:30am Note Date/Time October 27, 2021 1:34 pm [facility] [address] [place] [address] Discharge Summary Signed Patient: Anai Goodman MR#: [id number] : 1955 Acct:[id number] Age/Sex: 66 / M Adm Date: 2 Loc: Room: 0S3420-[address]: Ghanshyam Kaye MD Copies to: [...] [facility]/p planned right [...] on Xarelto while inpatient. Per [facility] pharmacy , insurance co-pay would be [...] male who was [facility]/p planned right [...] on Xarelto while inpatient. Per [facility] pharmacy , insurance co-pay would be [...] home prior. Your Home Health agency is [facility] ( ). They will usually contact you [...] them prior to your appointment. Instructions: Amputation, Urfgg-hum-Okhh (DC) Stand Alone Forms: Insulin Corrective Scale [...] signed by Ghanshyam Kaye MD> 10/28/21 1030 [facility] Work Phone: Evaluation noteNo [employer] Other Evaluation note* Diagnosis Onset Date Resolution Status Below knee amputation acute Type 2 diabetes mellitus acu te [facility] Work Phone: Evaluation note* Diagnosis Onset [...] wound of skin acute Wound dehiscence acute [facility] Work Phone: Evaluation note* Diagnosis Onset Date Resolution Status Below knee amputation acute Dehiscence of wound of skin acute Wound dehiscence acute [facility] Work Phone: Evaluation noteNo assessment information available [facility] Work Phone: Evaluation note* Diagnosis Preop cardiovascular exam- Primary Pre-operative cardiovascular examination Coronary artery disease involving [place] coronary artery of [place] heart without angina pectoris Ischemic cardiomyopathy Other specified forms of chronic ischemic heart disease Chronic systolic congestive heart failure ([facility]) Apical mural thrombus Essential (primary) hypertension Unspecified essential hypertension Cardiac defibrillator in place- [employer] Automatic implantable cardiac defibrillator in situ Mixed hyperlipidemia documented in this encounter [facility] SystemEvaluation note* Diagnosis Type 2 diabetes mellitus with diabetic neuropathic arthropathy, with long-term current use of insulin ([facility]) documented in this encounter [facility] SystemEvaluation note* Diagnosis Pure hypercholesterolemia documented in this encounter [facility] SystemEvaluation note* Diagnosis Chronic systolic congestive heart failure ([facility]) documented in this encounter [facility] SystemEvaluation note* Diagnosis Sarcoidosis with granulomatous hepatitis documented in this encounter [facility] SystemEvaluation note* Diagnosis Type 2 diabetes mellitus with diabetic neuropathic arthropathy, with long-term current use of insulin ([facility]) documented in this encounter [facility] [employer] [facility] - [facility]* Type Description Date Medical History DM1 Medical History HTN Medical History HYPERLIPEDEMIA Surgical History LEFT FOOT SURGERY WITH REMOVAL OF ALL FIVE TOES Surgical History heart cath with 5 stents placem ent Hospitalization History MRSA 2011 Hospitalization History [email or web address] Other [facility] Narrative - Reported* Type Description Date Medical History DM1 Medical History HTN Medical History HYPERLIPEDEMIA Surgical History LEFT FOOT SURGERY WITH REMOVAL OF ALL FIVE TOES Surgical History heart cath with 5 stents placem ent Surgical History right transtibial be low-knee amputation, right fibular osteotomy 10/17/21 Hospitalization History MRSA 2011 Hospitalization History [email or web address] Other Hisdalm general Narrative - Reported* Type Description Date [...] Heart Hospitalization History see above surg. hx. [email or web address] Other InstructionsNot on filedocumented in this encounter [facility] in this [facility] Summary Purpose Family History No Family [...] yelitis of right tibia (M86.661) Referral Organization [facility] Referring Provider First Name [...] section and content) DATE CREATED AUTHOR 05/12/2020 [facility] DATE CREATED AUTHOR AUTHOR'S ORGANIZ ATION 05/26/2021 [facility] DATE CREATED AUTHOR AUTHOR'S ORGANIZ ATION 08/23/2021 [facility] DATE CREATED AUTHOR AUTHOR'S ORGANIZ ATION 11/02/2021 [facility] DATE CREATED AUTHOR AUTHOR'S ORGANIZ ATION 04/15/2023 [facility] DATE CREATED AUTHOR AUTHOR'S ORGANIZ ATION 06/29/2023 [facility] DATE CREATED AUTHOR AUTHOR'S ORGANIZ ATION 08/03/2023 [facility] DATE CREATED AUTHOR AUTHOR'S ORGANIZ ATION 08/04/2023 [facility] DATE CREATED AUTHOR AUTHOR'S ORGANIZ ATION 09/07/2023 [facility] DATE CREATED AUTHOR AUTHOR'S ORGANIZ ATION 10/03/2023 [facility] REASON FOR VISIT (unrecogniz ed section and [...] Murillo MD Other Provider Active Mai Britton MACHINIST SET UP-C Other Provider Active Christiano Evans MD Other Provider Active Isidro Antunez MD Other Provider Active Rosalind Coburn MD Other Provider Active Bill Osei MD Other Provider Active Lizbeth Mcbride , DO Other Provider Active Fabio Sanchez MD Other Provider Active Kwesi Muhammad , DO Other Provider Active Bre Patel MERCURY WASHER Other Provider Active Bin Carrera , DO Other Provider Active Patti Taylor MD Other Provider Active Kassandra Munoz , NBA Other Provider Active Team Status: Inactive Member Role Status Dates Deon Braxton , DO Primary Care Provider Active Reddy Brandt , DO Referring Provider Active Darien Bailey MACHINIST SET UP-C Attending Provider Activ e Team Status: Active [...] MD Other Provider Active Mai Britton , MACHINIST SET UP-C Other Provider Active Christiano Evans MD Other [...] DO Admit Provider, Attending Provide r Active Academic Manager Relationship Specialty Start Date End Date Deon Braxton, DO [address] [place] [address] PCP - General Internal Medicine 01/22/17 Academic Manager Relationship Specialty Start Date End Date Deon Braxton DO [address] [place] [address] PCP - General Internal Medicine 01/22/17 Team Status: Inactive Member Role Status Dates Deon Braxton DO Primary Care Provider Active Sta rt: April 19, 2023 End: April 19, 2023 Salina Lee DPM MS Attending Provider Active Start: April 19, 2023 End: April 19, 2023 Academic Manager Relationship Specialty Start Date End Date Deon Braxton DO [address] [place] [address] PCP - General Internal Medicine 01/22/17 Academic Manager Relationship Specialty Start Date End Date Deon Braxton DO [address] [place] [address] PCP - General Internal Medicine 01/22/17 Academic Manager Relationship Specialty Start Date End Date Deon Braxotn DO [address] [facility] [place] [address] PCP - General Internal Medicine 01/22/17 Goals [...] BE BASED ON THE PRIMARY CLINICAL RECORDS. [employer] provides no warranty or guarantee of the accuracy or completeness of information in this document.
[2023-10-05] MEDS: LACTATED RINGER'S SOLUTION 1,000 ML 100 ML IV (15:49)
[2023-10-05] MEDS: ENOXAPARIN SODIUM 40 MG/0.4 ML SYRINGE SUBQ (17:05)
[2023-10-05] MEDS: VANCOMYCIN HCL 1,250 MG in 0.9 % SODIUM CHLORIDE 250 ML 166.667 MG IV (17:05)
[2023-10-05] MEDS: INSULIN ASPART 300 UNIT/3 ML PEN SUBQ (17:06)
[2023-10-05] MEDS: PIPERACILLIN SODIUM/TAZOBACTAM 3.375 GM in 0.9 % SODIUM CHLORIDE 50 ML IV (22:19)
[2023-10-05] MEDS: CARVEDILOL 6.25 MG TABLET PO (22:19)
[2023-10-05] MEDS: INSULIN DETEMIR 300 UNIT/3 ML INSULN.PEN 30 UNIT SQ (22:20)
[2023-10-06] MEDS: LACTATED RINGER'S SOLUTION 1,000 ML 100 ML IV (02:50)
[2023-10-06 04:35] VITALS: BP 115/76; PULSE 75; TEMP 36.4; O2SAT 96
[2023-10-06 05:14] LABS: Basophils Percent Auto 0.2 % (0.2-2.0); Eosinophils Absolute Auto 0.3 10^3/uL (0.0-0.7); Eosinophils Percent Auto 3.4 % (0.9-7.0); Hematocrit 31.5 % (42.0-54.0); Hemoglobin 10.3 g/dL (14.0-18.0); Immature Granulocytes Abs Auto 0.04 10^3/uL (0.00-0.03); Immature Granulocytes Pct Auto 0.5 % (0.0-0.5); Lymphocytes Absolute Auto 0.6 10^3/uL (1.2-3.8); Lymphocytes Percent Auto 6.9 % (20.5-60.0); Mean Corpuscular HGB Conc 32.7 g/dL (29.9-35.2); Mean Corpuscular Hemoglobin 28.2 pg (25.9-34.0); Mean Corpuscular Volume 86.3 fL (80.0-94.0); Mean Platelet Volume 8.7 fL (9.5-13.5); Monocytes Absolute Auto 0.8 10^3/uL (0.3-0.8); Monocytes Percent Auto 9.5 % (1.7-12.0); Neutrophils Absolute Auto 6.8 10^3/uL (1.4-6.5); Neutrophils Percent Auto 79.5 % (43.0-75.0); Platelet Count 269 10^3/uL (150-450); Red Blood Count 3.65 10^6/uL (4.70-6.10); Red Cell Distribution Width 15.2 % (11.0-15.0); White Blood Count 8.6 10^3/uL (4.0-11.0)
[2023-10-06 05:34] LABS: Alanine Aminotransferase 34 U/L (16-63); Albumin Globulin Ratio 0.4; Albumin Level 2.1 g/dL (3.4-5.0); Alkaline Phosphatase 80 U/L (46-116); Anion Gap 9.7; Aspartate Amino Transferase 24 U/L (15-37); BUN Creatinine Ratio 24.2; Bilirubin Total 0.5 mg/dL (0.2-1.0); Calcium 8.9 mg/dL (8.5-10.1); Carbon Dioxide 26.4 mmol/L (21.0-32.0); Chloride 103 mmol/L (98-107); Estimated GFR (African America 57 (>=60); Estimated GFR (Non-African Ame 47 (>=60); Globulin 4.8 g/dL; Glucose 101 mg/dL (74-106); Potassium 4.1 mmol/L (3.5-5.1); Sodium 135 mmol/L (136-145); Total Protein 6.9 g/dL (6.4-8.2)
[2023-10-06 08:30] VITALS: BP 125/77; PULSE 78; TEMP 37; O2SAT 94
--- NOTE | 2023-10-06 09:15 | PT.DAILY ---
Physical Therapy Daily Note PT Daily Note/Assess Start: 10/06/23 09:04 Freq: Status: Active Protocol: Document 10/06/23 09:05 [id number] (Rec: 10/06/23 09:15 [id number]) Physical Therapy Daily Note/Assessment Time In/Time Out Time In 08:29 Time Out 08:49 Pain In Pain Level 0 Pain Out Pain Level 0 Subjective Subjective Patient received in bed. Agreeable to participate with PT. Patient agreeable to use RW for safety during walking. Request to use bathroom after walking. Therapeutic Exercise Time Therapeutic Exercise Minutes (minutes) 9 Therapeutic Exercise Units 1 Therapeutic Exercise Treatment Therapeutic Exercise Treatment Instructed in LTR x 10 reps and JEFF SKTC 2 x 20s to address LB issues per POC. R residual stump SLR x 10 reps. Therapeutic Activity Time Therapeutic Activity Minutes (minutes) 11 Therapeutic Activity Units 1 Therapeutic Activity Treatment Bed Mobility Ability Contact Guard Assist Chair Transfer Ability Contact Guard Assist Therapeutic Activity Comments Patient is independent in donning R prosthesis and L shoe with toe block. Sit to stand transfer: CGA +1 to RW. Ambulated ~200 ft. with RW with CGA +1, FISHING TOOL SUPERVISOR managed IV pole. Patient seated on BSC in bathroom. Patient able to manage underwear and transfer sit to stand and stand to sit at BSC and RW. Patient ambulated ~18 feet x 10 with RW to chair at bedside, CBWR. Nursing notified of patient placement at bedside. NBA Suarez acknowledges information. Total Physical Therapy Time Total Therapy Minutes 20 Total Physical Therapy Units 2 Summary Daily Note Summary Patient demonstrates good seated balance while donning prosthesis and shoe. Increased ambulation distance. Demonstrates R hip weakness secondary to frequent decreased step height during gait, able to clear floor without catching toe. Patient demonstrates understanding of LB ther ex and performs correctly. Patient will benefit from OP PT to address weakness in LE.
[2023-10-06] MEDS: ATORVASTATIN CALCIUM 40 MG TABLET 80 MG PO (09:31)
[2023-10-06] MEDS: LOSARTAN POTASSIUM 25 MG TABLET PO (09:31)
[2023-10-06] MEDS: ASPIRIN 81 MG TABLET.DR PO (09:31)
[2023-10-06] MEDS: DULOXETINE HCL 30 MG CAPSULE.DR PO (09:31)
[2023-10-06] MEDS: ENOXAPARIN SODIUM 40 MG/0.4 ML SYRINGE SUBQ (09:31)
[2023-10-06] MEDS: PIPERACILLIN SODIUM/TAZOBACTAM 3.375 GM in 0.9 % SODIUM CHLORIDE 50 ML IV (09:31)
[2023-10-06] MEDS: ALLOPURINOL 100 MG TABLET 200 MG PO (09:31)
[2023-10-06] MEDS: CHOLECALCIFEROL (VITAMIN D3) 125 MCG/5,000 UNIT TABLET PO (09:32)
[2023-10-06] MEDS: SPIRONOLACTONE 25 MG TABLET PO (09:32)
[2023-10-06] MEDS: MAGNESIUM OXIDE 400 MG TABLET PO (09:32)
[2023-10-06] MEDS: CARVEDILOL 6.25 MG TABLET PO (09:32)
[2023-10-06] MEDS: BUMETANIDE 1 MG TABLET PO (10:09)
[2023-10-06] MEDS: CLOPIDOGREL BISULFATE 75 MG TABLET PO (10:09)
[2023-10-06 11:10] VITALS: O2SAT 98
[2023-10-06] MEDS: CANAGLIFLOZIN 100 MG TABLET 300 MG PO (11:10)
--- NOTE | 2023-10-06 11:40 | P.HP_ITS ---
HPI H&P: HPI History of Present Illness Chief complaint: LOWER EXTREMITY PAIN/ CELLULITUS LEFT ANKLE Narrative: 67 y/o male with a history of diabetic neuropathy and chronic osteomyelitis to ER with redness to left foot and ankle. 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 Severe neuropathy and mild pain. Increased redness around foot and ankle but no drainage. Afebrile. To ER and WBC normal. CRP and ESR elevated. X-ray with chronic changes to bone. Admitted for treatment. Started vancomycin and zosyn. Feels well this am. Redness stable and WBC normal. Remains without fever. Opioid HPI Opioid Management Most Recent Pain and Opioid Data: Last Pain Scale 0 10/06/23 11:11 Last Pain Intensity 0 10/06/23 09:05 Last Pain Assessment 10/06/23 11:11 Last ED Pain Assessment 10/05/23 12:27 Last ORT Total Score 0 10/05/23 15:01 Last ORT Risk Category Low Risk 10/05/23 15:01 Review of Systems ROS Constitutional Denies: fever, chills or fatigue Cardiovascular Denies: chest pain, palpitations or edema Respiratory Denies: shortness of breath, cough or wheezing Gastrointestinal Denies: abdominal pain, nausea, vomiting or diarrhea Genitourinary Denies: painful urination [facility]SH [facility] Medical History (Updated 10/06/23 @ 09:57 by Josh Watt MD) Abscess ?L02.91 - Cutaneous abscess, unspecified (ICD-10) MSSA bacteremia ?R78.81 - Bacteremia (ICD-10) ?B95.61 - Methicillin susceptible Staphylococcus aureus infection as the cause of diseases classified elsewhere (ICD-10) 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 ?I13.0 - Hypertensive heart and chronic kidney disease with heart failure and stage 1 through stage 4 chronic kidney disease, or unspecified chronic kidney disease (ICD-10) Diabetes ?E11.9 - Type 2 diabetes mellitus without complications (ICD-10) Below-knee amputation of right lower extremity ?S88.111A - Complete traumatic amputation at level between knee and ankle, right lower leg, initial encounter (ICD-10) Arthritis ?M19.90 - Unspecified osteoarthritis, unspecified site (ICD-10) MRSA (methicillin resistant Staphylococcus aureus) ?A49.02 - Methicillin resistant Staphylococcus aureus infection, unspecified site (ICD-10) Peptic ulcer ?K27.9 - Peptic ulcer, site unspecified, unspecified as acute or chronic, without hemorrhage or perforation (ICD-10) Skin cancer ?C44.90 - Unspecified malignant neoplasm of skin, unspecified (ICD-10) Bronchitis ?J40 - Bronchitis, not specified as acute or chronic (ICD-10) Seizures ?R56.9 - Unspecified convulsions (ICD-10) Myocardial infarction (2015) ?I21.9 - Acute myocardial infarction, unspecified (ICD-10) Osteomyelitis ?M86.9 - Osteomyelitis, unspecified (ICD-10) Chronic ulcer of left ankle ?L97.329 - Non-pressure chronic ulcer of left ankle with unspecified severity (ICD-10) Sleep apnea ?G47.30 - Sleep apnea, unspecified (ICD-10) Diabetic retinopathy ?E11.319 - Type 2 diabetes mellitus with unspecified diabetic retinopathy without macular edema (ICD-10) 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E78.5 - Hyperlipidemia, unspecified (ICD-10) Ischemic cardiomyopathy ?I25.5 - Ischemic cardiomyopathy (ICD-10) Apical mural thrombus ?I51.3 - Intracardiac thrombosis, not elsewhere classified (ICD-10) Cardiac defibrillator in place ?Z95.810 - Presence of automatic (implantable) cardiac defibrillator (ICD-10) Surgical History H/O foot surgery ?Z98.890 - Other specified postprocedural states (ICD-10) History of excision of lesion ?Z98.890 - Other specified postprocedural states (ICD-10) ?Z87.2 - Personal history of diseases of the skin and subcutaneous tissue (ICD-10) History of cardiac catheterization ?Z98.890 - Other specified postprocedural states (ICD-10) History of heart artery stent ?Z95.5 - Presence of coronary angioplasty implant and graft (ICD-10) History of cholecystectomy ?Z90.49 - Acquired absence of other specified parts of digestive tract (ICD- 10) History of arthroscopy of knee ?Z98.890 - Other specified postprocedural states (ICD-10) History of foot surgery ?Z98.890 - Other specified postprocedural states (ICD-10) H/O hand surgery ?Z98.890 - Other specified postprocedural states (ICD-10) History of colonoscopy ?Z98.890 - Other specified postprocedural states (ICD-10) History of esophagogastroduodenoscopy (EGD) ?Z98.890 - Other specified postprocedural states (ICD-10) History of ankle surgery ?Z98.890 - Other specified postprocedural states (ICD-10) Family History Mother Family history of CHF (congestive heart failure) Family history of diabetes mellitus Family history of hypertension Heart disease Father Family history of hypertension Social History Within the past year, how often did you have a drink containing alcohol: monthly or less Within the past year, how many standard drinks containing alcohol did you have on a typical day: 1 or 2 Within the past year, how often did you have six or more drinks on one occasion: never Total score: 0 Score interpretation: A score less than 4 is consistent with normal alcohol consumption. Smoking status: Never smoker Non-prescribed substance use: denies use Previous occupational history: retired Highest level of school completed/degree received: some college, no degree Are you now , , , , never or living with a partner: In a typical week, how many times do you talk on the telephone with family, friends, or neighbors: 3 or more times per week How often do you get together with friends or relatives: 3 or more times per week How often do you attend samaritan or yazdanism services: 4 or more times per year Do you belong to any clubs or organizations such as samaritan groups unions, fraternal or athletic groups, or school groups: no Total score: 3 Score interpretation: A score of greater than or equal to 2 indicates the lowest level of social isolation. Little interest or pleasure in doing things: not at all Feeling down, depressed, or hopeless: not at all Feel stressed/tense/nervous/anxious/difficulty sleeping: not at all Do you think of yourself as: straight/heterosexual Gender Identity: male Meds Home Medications and Allergies Home Medications ?Medication ?Instructions ?Recorded ?Confirmed ?Type albuterol sulfate 90 mcg/actuation 2 inh inhalation Q6H PRN shortness 04/16/23 10/05/23 History aerosol inhaler (ProAir HFA) of breath or wheezing allopurinol 100 mg tablet 200 mg PO DAILY 04/16/23 10/05/23 History ascorbic acid (vitamin C) 500 mg 500 mg PO DAILY 04/16/23 10/05/23 History capsule aspirin 81 mg tablet,delayed 81 mg PO DAILY 04/16/23 10/05/23 History release (Adult Aspirin Regimen) atorvastatin 80 mg tablet 80 mg PO DAILY 04/16/23 10/05/23 History carvedilol 6.25 mg tablet 6.25 mg PO BID 04/16/23 10/05/23 History cholecalciferol (vitamin D3) 125 5,000 unit PO DAILY 04/16/23 10/05/23 History mcg (5,000 unit) capsule coQ10 (ubiquinol) 100 mg capsule 100 mg PO DAILY 04/16/23 10/05/23 History (Qunol Cory CoQ10) fluticasone furoate 200 1 inh inhalation DAILY PRN 04/16/23 10/05/23 History mcg-vilanterol 25 mcg/dose increased sob inhalation powder (Breo Ellipta) losartan 25 mg tablet (Cozaar) 25 mg PO DAILY 04/16/23 10/05/23 History magnesium oxide 400 mg PO DAILY 04/16/23 10/05/23 History multivitamin (Daily Multi-Vitamin 1 tab PO DAILY 04/16/23 10/05/23 History tablet) nitroglycerin 0.4 mg sublingual 0.4 mg sublingual Q5M 04/16/23 10/05/23 History tablet (Nitrostat) prednisone 5 mg tablet 5 mg PO .COMPLEX 04/16/23 10/05/23 History spironolactone 25 mg tablet 25 mg PO DAILY 04/16/23 10/05/23 History duloxetine 30 mg capsule,delayed 30 mg PO DAILY 06/20/23 10/05/23 History release insulin glargine 100 unit/mL 40 unit subcut .qhs 06/20/23 10/05/23 History subcutaneous solution (Lantus U-100 Insulin) insulin lispro 100 unit/mL 15 unit subcut TIDWM 06/20/23 10/05/23 History subcutaneous half-unit pen bumetanide 1 mg tablet 1 mg PO BID 10/05/23 10/05/23 History clopidogrel 75 mg tablet 75 mg PO .qd 10/05/23 10/05/23 History dapagliflozin propanediol 10 mg 10 mg PO .qd 10/05/23 10/05/23 History tablet (Farxiga) amoxicillin 875 mg-potassium 1 tab PO Q12H 14 days #28 tabs 10/06/23 Rx clavulanate 125 mg tablet sulfamethoxazole 800 1 tab PO Q12H 14 days #28 tabs 10/06/23 Rx mg-trimethoprim 160 mg tablet (Bactrim DS) Allergies Allergy/AdvReac Type Severity Reaction Status Date / Time chlorpheniramine Allergy Hives Verified 08/27/23 10:44 dextromethorphan Allergy Hives Verified 08/27/23 10:44 doxycycline Allergy Verified 08/27/23 10:44 hydrocodone [From Tussionex] Allergy Hives Verified 08/27/23 10:44 levofloxacin Allergy Chest Pain Verified 08/27/23 10:44 Exam Constitutional Vital Signs, click to edit/add: Last Vital Signs Temp 98.6 F 10/06/23 08:30 Pulse 78 10/06/23 08:30 Resp 16 10/06/23 08:30 BP 125/77 10/06/23 08:30 Pulse Ox 98 10/06/23 11:10 O2 Del Method Room Air 10/06/23 11:10 Documenting provider has reviewed patient's vital signs: yes Common normals: no apparent distress, oriented x3 and alert HENMT Common normals: normocephalic Eye Common normals: PERRL and EOMs intact bilaterally Respiratory Common normals: normal respiratory effort and clear to auscultation bilaterally Cardio Common normals: regular rate, regular rhythm, no gallops, no murmurs and no rub GI Common normals: Normal to inspection, nondistended, normoactive bowel sounds present and non-tender Extremity Common normals: no pedal edema Left lower extremity: foot and digits (Mild erythema around medial foot and ankle with eschar) Results Labs Labs: Short CBC 10/05/23 10/06/23 Range/Units 12:44 04:53 WBC 9.6 8.6 (4.0-11.0) 10^3/uL Hgb 10.1 L 10.3 L (14.0-18.0) g/dL Hct 31.0 L 31.5 L (42.0-54.0) % Plt Count 277 269 (150-450) 10^3/uL BMP 10/05/23 10/06/23 12:44 04:53 Sodium 138 135 L Potassium 4.3 4.1 Chloride 104 103 Carbon Dioxide 27.5 26.4 BUN 51.0 H 36.0 H Creatinine 1.97 H 1.49 H Glucose 127 H 101 Calcium 9.0 8.9 Liver Function 10/05/23 10/06/23 Range/Units 12:44 04:53 Total Bilirubin 0.4 0.5 (0.2-1.0) mg/dL AST 29 24 (15-37) U/L ALT 41 34 (16-63) U/L Alkaline Phosphatase 97 80 (46-116) U/L Albumin 2.3 L 2.1 L (3.4-5.0) g/dL Assessment and Plan Assessment and Plan (1) Cellulitis of left ankle: (2) Chronic osteomyelitis involving left ankle and foot: (3) ROSALINO (acute kidney injury): (4) Type 2 diabetes mellitus with hyperglycemia: (5) Hypertension: Qualifiers: Hypertension type: primary hypertension Qualified Code(s): I10 - Essential (primary) hypertension (6) COPD (chronic obstructive pulmonary disease): Qualifiers: COPD type: unspecified COPD Qualified Code(s): J44.9 - Chronic obstructive pulmonary disease, unspecified (7) Diabetic neuropathy: (8) Chronic systolic (congestive) heart failure: (9) CAD (coronary artery disease): Qualifiers: Coronary Disease-Associated Artery/Lesion type: [place] artery [place] vs. transplanted heart: [place] heart Associated angina: without angina Qualified Code(s): I25.10 - Atherosclerotic heart disease of [place] coronary artery without angina pectoris (10) Stage 3a chronic kidney disease (CKD): Plan Presented with redness and concern of cellulitis. Mild erythema and no drainage. WBC normal and x-ray without acute change. Patient feels well and discharge home. Will start oral augmentin and bactrim. Follow with podiatry in 2-3 days for assessment and wound care. Resume home medication without change. If redness or drainage worsens return to ER.
[2023-10-06 13:27] VITALS: BP 104/57; PULSE 74; TEMP 36.9; O2SAT 97
--- NOTE | 2023-10-08 14:08 | CM.DCFOLLOWU ---
Person spoke with: patient How are you feeling? well How is your pain? none Did you understand your discharge instructions? yes Do you have any questions about your discharge instructions? no Were you given any prescriptions at discharge? yes Were you able to get your prescriptions filled? yes Do you understand how to take your medications as ordered? yes Do you have any questions about your follow up appointment and do you plan to keep your follow up appointment? no questions, follow up is tomorrow Is there anything else that you would like to discuss? no Questions/Comments/Concerns/Other: no
== END 2023-10-06 13:50 | disposition home or self-care (01) ==
LOC: ER 14:19 → MS 18:39
PROVIDERS: Admitting Provider Internal Medicine; Emergency Provider Emergency Medicine Emergency Medical Services; PCP Internal Medicine; Visit Provider Family Medicine
DX: E11.628 Type 2 diabetes mellitus with other skin complications (principal); L03.116 Cellulitis of left lower limb; E11.69 Type 2 diabetes mellitus with other specified complication; M86.672 Other chronic osteomyelitis, left ankle and foot; N17.9 Acute kidney failure, unspecified; E11.65 Type 2 diabetes mellitus with hyperglycemia; N18.31 Chronic kidney disease, stage 3a; J44.9 Chronic obstructive pulmonary disease, unspecified; E11.40 Type 2 diabetes mellitus with diabetic neuropathy, unspecified; I13.0 Hypertensive heart and chronic kidney disease with heart failure and stage 1 through stage 4 chronic kidney disease, or unspecified chronic kidney disease; I50.22 Chronic systolic (congestive) heart failure; I25.10 Atherosclerotic heart disease of native coronary artery without angina pectoris; Z79.4 Long term (current) use of insulin; Z89.511 Acquired absence of right leg below knee; Z89.432 Acquired absence of left foot
CPT/HCPCS: 36415; 73610; 80053; 85007; 85025; 85027; 85652; 86140; 94761; 96361; 96365; 96366; 96367; 96372; 97110; 97161; 97165; 97530; 99285; G0378; J1650; J2020; J2543; J3370

== ENCOUNTER 2023-10-09 15:38 | Outpatient (OUT) | payer MEDICARE, SELFPAY | END 2023-10-09 15:39 | disposition home or self-care (01) | LOC: WC 15:38 | PROVIDERS: PCP Internal Medicine; Visit Provider Podiatrist Foot & Ankle Surgery | DX: E11.622 Type 2 diabetes mellitus with other skin ulcer (principal); L97.321 Non-pressure chronic ulcer of left ankle limited to breakdown of skin | CPT/HCPCS: G0463 ==

== ENCOUNTER 2023-10-22 15:57 | Outpatient (OUT) | payer MEDICARE, SELFPAY ==
--- OUTSIDE RECORDS SUMMARY | 2023-10-22 16:20 | XMS_ITS | CCD ---
Author Organization [facility] Informat ion Partnership [facility] Care Team Providers Care Flour Blender Name Role Phone DEON BRAXTON Primary Care [...] Unavailable DO Deon Braxton Primary Care Provider [phone] DO Reddy Brandt Attending Provider DO Reddy Brandt Referring Provider CRISTINA Bailey Attending Provider DO Reddy Brandt Admit Provider NBA Hope Other Provider Unavailable NBA Ruiz Other Provider Unavailable NBA Sorensen Other Provider Unavailable NBA Jasso Other Provider Unavailable NBA Frederick Other Provider Unavailable NBA Parmar Other Provider Unavailable MD Fredi Mendez Other Provider KRUNAL Galvin Other Provider DO Julia Segura Other Provider [phone] MD Armando Hanks Other Provider [phone] DO Golden Whatley Other Provider MD Adi Feng Other Provider [phone] MD Letty Turpin Other Provider Polly [...] Other Provider DO Kwesi Muhammad Other Provider [phone] KRUNAL Patel Other Provider DO Bin [...] Unavailable IRAIS, DR CHAVARRIA Primary Care Unavailable [facility] SALINA Walker Consulting Unavailable SALINA LEE Admitting Unavailable JESUS, SALINA Walker Attending Unavailable IRAIS, DR CHAVARRIA Primary Care Unavailable SALINA LEE Admitting Unavailable JESUS, SALNIA Walker Attending Unavailable IRAIS, DR CHAVARRIA Primary [...] Admitting Unavailable HIGHLANDER, SALINA Walker Attending Unavailable [place], DR ANAI Edmond Consulting Unavailable HIGHLANDER, SALINA [...] Care Unavailable HIGHLANDER, SALINA Walker Consulting Unavailable [facility], SALINA Walker Admitting Unavailable CLOUNAERTY, BALJEET [...] Alegre Other Provider ROHIT Palacios Emergency Provider [phone] Cortes, DO César Vega Emergency Provider Yuhas, DO Deon Primary Care Provider [phone] DO Reddy Brandt Attending Provider Yuhas, DO Deon Primary Care Provider [phone] DO Reddy Brandt Attending Provider [phone] DO César Cortes Emergency Provider DO Reddy Brandt Admit Provider [phone] Ghanshyam Kaye Unavailable Yuhas, DO Deon Primary Care Provider DO Reddy Brandt Attending Provider [phone] Dung Serna Unavailable Yumarvas Deon URENA Primary [...] Chlorpheniramine; Translations: [chlorpheniramine] Drug Allergy 07-02-19 21 [facility] Repository (15 sources) Dextromethorphan; Translations: [dextromethorphan] Drug Allergy 10-19-19 22 Unknown Reaction [facility] Repository (20 sources) Doxycycline; Translations: [doxycycline] Drug Allergy 04-02-19 21 FELT LIKE A HEART ATTACK, Chest Pain [facility] Repository (20 sources) guaiFENesin; Translations: [guaiFENesin] Drug Allergy 04-14-19 16 [facility] Repository (20 sources) levoFLOXacin; Translations: [levoFLOXacin] Drug Allergy 04-02-19 21 Chest Pain [facility] Repository (20 sources) Phenylephrine; Translations: [phenylephrine] Drug Allergy 07-02-19 Unknown Reaction [facility] Repository (1 source) Tussionex [employer]; Translations: [Tussionex [employer]] Propensity to adverse reactions to drug (disorder) [facility] Repository (20 sources) Tussin Drug allergy [employer] Other (20 sources) HYDROcodone; Translations: [HYDROCODONE] Drug Allergy 10-19-19 [facility] (6 sources) Chlorpheniramine / HYDROcodone; Translations: [TUSSIONEX] Drug Allergy [facility] Repository (11 sources) Acetaminophen / diphenhydrAMINE / Phenylephrine; Translations: [HVHWMOHBD-II-HSYSL MINOPHEN] Drug Allergy 02-04-20 22 [facility]: (7 sources) Chlorpheniramine / HYDROcodone Drug Allergy Itching [facility] [employer] System (11 sources) Dextromethorphan; Translations: [DEXTROMETHORPHAN HBR] Drug Allergy 10-18-19 Itching [employer] (1 source) carbetapentane Drug Allergy 12-06-19 [facility] Repository Medications Current Medications Medication Drug Class(es) Dates Sig (Normalized) Sig (Original) acetaminophen 500 mg oral tablet (14 sources) Start: 10-27-2021 take 500 mg by mouth every four hours Acetaminophen Active 500 MG PO Q4H 100 October 26, 2021 11:00pm take 1 capsule by mouth every si x hours Acetaminophen 500 MG 1 capsule as needed Orally every 6 hrs Active [id number] 200 actuat albuterol 0.09 mg/actuat metered dose [...] mL nebulizer Indications: COPD with acute exacerbation ([facility]) USE 3 ML VIA NEBULIZER FOUR TIMES [...] tablet Indications: Chronic systolic congestive heart failure ([facility]) Take 1 tablet (10 mg total) by [...] insulin ([facility]) CHANGE EVERY 2 WEEKS DIRECTED [...] tablet Indications: Chronic systolic congestive heart failure ([facility]) Take 1 tablet (25 mg total) by [...] Start: 10-07-2020 take 1 puff(s) by mo cox branson once daily fluticasone furoate-vilanteroL (BREO ELLIPTA) 200-25 [...] myocardial infarction; Translations: [Atherosclerotic heart disease of [place] coronary artery without angina pectoris] Onset: 11-23-2017 [...] sources) Long-term current use of insulin; Translations: [exterminator termite (current) use of insulin] Episodic Other and [...] Onset: 01-18-2021 Episodic Other aftercare (1 source) exterminator termite (current) use of aspirin; Translations: [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 USE OF ASPIRIN] Onset: 03-02-2021 Episodic Other aftercare (3 sources) [facility] (current) use of insulin; Translations: [ORTHOPEDIC 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 USE OF INSULIN] Onset: 04-22-2020 Episodic Other aftercare (1 source) Other half-way (current) drug therapy; Translations: [OTH ORTHOPEDIC 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 DRUG THERAPY] Onset: 03-02-2021 Episodic Other [...] Interpretation Reference Range Facility COMPREHENSIVE METABOLIC PANE [facility] 09-13-2023 Albumin [Mass/Vol] 3.4 g/dL Normal 3.2-5.3 [facility] Comment on above: Performed By: #### 3 0934-4 #### [facility] ([id number]) [address] [place] [address]0325 #### CMP #### [facility] ([id number]) [address], [address] [place] [address] ALP [Catalytic activity/Vol] 72 U/L Normal 39-130 [facility] Comment on above: Performed By: #### 3 0934-4 #### [facility] ([id number]) [address] [place] [address]44 #### CMP #### [facility] ([id number]) [address], [address] [place] [address] ALT [Catalytic activity/Vol] 32 U/L Normal 0-40 [facility] Comment on above: Performed By: #### 3 0934-4 #### [facility] ([id number]) [address] [place] [address] 82001 #### CMP #### [facility] ([id number]) [address], [address] [place] [address] Anion gap [Moles/Vol] 10 mmol/L Normal 5-15 [facility] Comment on above: Performed By: #### 3 0934-4 #### [facility] ([id number]) [address] [place] [address] 97443 #### CMP #### [facility] ([id number]) [address], [address] [place] [address] AST [Catalytic activity/Vol] 32 U/L Normal 0-41 [facility] Comment on above: Performed By: #### 3 0934-4 #### [facility] ([id number]) [address] [place] [address] 73422 #### CMP #### [facility] ([id number]) [address], [address] [place] [address] Bilirubin [Mass/Vol] 1.1 mg/dL Normal 0.3-1.2 [facility] Comment on above: Performed By: #### 3 0934-4 #### [facility] ([id number]) [address] [place] [address] 34628 #### CMP #### [facility] ([id number]) [address], [address] [place] [address] Calcium [Mass/Vol] 9.6 mg/dL Normal 8.5-10.5 [facility] Comment on above: Performed By: #### 3 0934-4 #### [facility] ([id number]) [address] [place] [address] 27045 #### CMP #### [facility] ([id number]) [address], [address] [place] [address] Chloride [Moles/Vol] 96 mmol/L Low 98-109 [facility] Comment on above: Performed By: #### 3 0934-4 #### [facility] ([id number]) [address] [place] [address] 36165 #### CMP #### [facility] ([id number]) [address], [address] [place] [address] CO2 [Moles/Vol] 30 mmol/L Normal 22-32 [facility] Comment on above: Performed By: #### 3 0934-4 #### [facility] ([id number]) [address] [place] [address] 23815 #### CMP #### [facility] ([id number]) [address], [address] [place] [address] Creatinine [Mass/Vol] 1.24 mg/dL Normal 0.60-1.30 [facility] Comment on above: Result Comment: METH OD TRACEABLE TO IDMS STANDARD Performed By: #### 3 0934-4 #### [facility] ([id number]) [address] [place] [address] 10714 #### CMP #### [facility] ([id number]) [address] [place] [address] GFR/1.73 sq M.predicted among non-blacks MDRD (S/P/Bld) [Vol rate/Area] 65 mL/min/{1.73_m2} Normal >59 [facility] Comment on above: Result Comment: Reported eGFR is based on the CKD-EPI 2020 equation that does not use a race coefficient. Performed By: #### 3 0934-4 #### [facility] ([id number]) [address] [place] [address] 29994 #### CMP #### [facility] ([id number]) [address] [place] [address] Glucose [Mass/Vol] 154 mg/dL High 65-99 [facility] Comment on above: Performed By: #### 3 0934-4 #### [facility] ([id number]) [address] [place] [address] 68330 #### CMP #### [facility] ([id number]) [address] [place] [address] Potassium [Moles/Vol] 4.4 mmol/L Normal 3.5-5.0 [facility] Comment on above: Performed By: #### 3 0934-4 #### [facility] ([id number]) [address] [place] [address] 90005 #### CMP #### [facility] ([id number]) [address], [address] [place] [address] Protein [Mass/Vol] 7.3 g/dL Normal 6.0-8.0 [facility] Comment on above: Performed By: #### 3 0934-4 #### [facility] ([id number]) [address] [place] [address] 98340 #### CMP #### [facility] ([id number]) [address], [address] [place] [address] Sodium [Moles/Vol] 136 mmol/L Normal 134-146 [facility] Comment on above: Performed By: #### 3 0934-4 #### [facility] ([id number]) [address] [place] [address] 79049 #### CMP #### [facility] ([id number]) [address] [place] [address] Urea nitrogen [Mass/Vol] 37 mg/dL High 5-27 [facility] Comment on above: Performed By: #### 3 0934-4 #### [facility] ([id number]) [address] [place] [address] 48036 #### CMP #### [facility] ([id number]) [address], [address] [place] [address] Natriuretic peptide B [Mass/ Vol]on 09-13-2023 Natriuretic peptide B (Bld) [Mass/Vol] 198 pg/mL High <100.0 [facility] Comment on above: Performed By: #### 3 0934-4 #### [facility] ([id number]) [address] [place] [address] 28638 #### CMP #### [facility] ([id number]) [address], [address] [place] [address] COMPREHENSIVE METABOLIC PANE Ray 08-02-2023 Albumin [Mass/Vol] 4.3 g/dL Normal 3.2-5.3 [facility] Comment on above: Performed By: #### C ALEA, 80471-2, HA1C #### [facility] ([id number]) [address], [address] [place] [address] ALP [Catalytic activity/Vol] 85 U/L Normal 39-130 [facility] Comment on above: Performed By: #### C ALEA, 39509-0, HA1C #### [facility] ([id number]) [address], [address] [place] [address] ALT [Catalytic activity/Vol] 31 U/L Normal 0-40 [facility] Comment on above: Performed By: #### Uzair COSBY, 07344-4, HA1C #### [facility] ([id number]) [address], [address] [place] [address] Anion gap [Moles/Vol] 8 mmol/L Normal 5-15 [facility] Comment on above: Performed By: #### Uazir COSBY, 47980-8, HA1C #### [facility] ([id number]) [address], [address] [place] [address] AST [Catalytic activity/Vol] 29 U/L Normal 0-41 [facility] Comment on above: Performed By: #### Uzair COSBY, 53912-7, HA1C #### [facility] ([id number]) [address], [address] [place] [address] Bilirubin [Mass/Vol] 0.9 mg/dL Normal 0.3-1.2 [facility] Comment on above: Performed By: #### Uzair COSBY, 43297-1, HA1C #### [facility] ([id number]) [address], [address] [place] [address] Calcium [Mass/Vol] 9.7 mg/dL Normal 8.5-10.5 [facility] Comment on above: Performed By: #### Uzair COSBY 83667-5, MARVA1C #### [facility] ([id number]) [address], [address] [place] [address] Chloride [Moles/Vol] 103 mmol/L Normal 98-109 [facility] Comment on above: Performed By: #### Uzair COSBY 80456-6, MARVA1C #### [facility] ([id number]) [address], [address] [place] [address] CO2 [Moles/Vol] 31 mmol/L Normal 22-32 [facility] Comment on above: Performed By: #### Uzair COSBY 96793-4, ALANNAH #### [facility] ([id number]) [address], [address] [place] [address] Creatinine [Mass/Vol] 1.35 mg/dL High 0.60-1.30 [facility] Comment on above: Result Comment: METH OD TRACEABLE TO IDMS STANDARD Performed By: #### Uzair COSBY 00409-9, MARVA1C #### [facility] ([id number]) [address], [address] [place] [address] GFR/1.73 sq M.predicted among non-blacks MDRD (S/P/Bld) [Vol rate/Area] 58 mL/min/{1.73_m2} Low >59 [facility] Comment on above: Result Comment: Reported eGFR is based on the CKD-EPI 2020 equation that does not use a race coefficient. Performed By: #### Uzair COSBY 85212-4, MARVA1C #### [facility] ([id number]) [address], [address] [place] [address] Glucose [Mass/Vol] 135 mg/dL High 65-99 [facility] Comment on above: Performed By: #### Uzair COSBY 29363-5, MARVA1C #### [facility] ([id number]) [address], [address] [place] [address] Potassium [Moles/Vol] 4.3 mmol/L Normal 3.5-5.0 [facility] Comment on above: Performed By: #### Uzair COSBY, 55162-3, MARVA1C #### [facility] ([id number]) [address], [address] [place] [address] Protein [Mass/Vol] 6.9 g/dL Normal 6.0-8.0 [facility] Comment on above: Performed By: #### Uzair COSBY, 69895-2, HA1C #### [facility] ([id number]) [address], [address] [place] [address] Sodium [Moles/Vol] 142 mmol/L Normal 134-146 [facility] Comment on above: Performed By: #### Uzair COSBY, 32763-3, MARVA1C #### [facility] ([id number]) [address], [address] [place] [address] Urea nitrogen [Mass/Vol] 31 mg/dL High 5-27 [facility] Comment on above: Performed By: #### Uzair COSBY, 37492-9, MARVA1C #### [facility] ([id number]) [address], [address] [place] [address] HGB A1C (GLYCO-HGB)on 2023 Glucose [Mass/Vol] 114 mg/dL Normal [facility] Comment on above: Performed By: #### Uzair COSBY, 05873-0, HA1C #### [facility] ([id number]) [address], [address] [place] [address] HbA1c (Bld) [Mass fraction] 5.6 % Normal 4.4-5.6 [facility] Comment on above: Result Comment: NOTE ADA Guidelines Result HgbA1c Normal : less than 5.7 % Prediabetes : 5.7 % to 6.4 % Diabetes : > 6.4 % Use with caution in patients with abnormal hemoglobin variants as the half-life of red blood cells and in vivo glycation rates are affected. Performed By: #### Uzair COSBY, 06691-2, ALANNAH #### [facility] ([id number]) [address], [address] [place] [address] Lipid 1996 panelon 4 Cholesterol [Mass/Vol] 88 mg/dL Low 150-200 [facility] Comment on above: Performed By: #### Uzair COSBY, 98515-8, ALANNAH #### [facility] ([id number]) [address], [address] [place] [address] Cholesterol in HDL [Mass/Vol] 38 mg/dL Low >39 [facility] Comment on above: Result Comment: HDL <40 mg/dL - High Risk HDL > or = 40mg/dL- Desirable HDL >60 mg/dL - Negative Risk Performed By: #### Uzair COSBY, 59010-2, ALANNAH #### [facility] ([id number]) [address], [address] [place] [address] Cholesterol in LDL [Mass/Vol] 33 mg/dL Normal <130 [facility] Comment on above: Result Comment: LDL <100 mg/dL - Desirable LDL >160 mg/dL - High Risk Performed By: #### Uzair COSBY, 02364-6, ALANNAH #### [facility] ([id number]) [address] [place] [address] Cholesterol in VLDL [Mass/Vol] 17 mg/dL Normal 0-30 [facility] Comment on above: Performed By: #### Uzair COSBY, 03202-1, HA1C #### [facility] ([id number]) [address], [address] [place] [address] CHOLESTEROL:HDL 2.3 Normal 1.0-5.0 [facility] Comment on above: Performed By: #### Uziar COSBY, 42050-3, HA1C #### [facility] ([id number]) [address] [place] [address] Triglyceride [Mass/Vol] 83 mg/dL Normal 27-150 [facility] Comment on above: Performed By: #### Uzair COSBY, 29550-1, MARVA1C #### [facility] ([id number]) [address] [place] [address] MICROALBUMIN - ALBUMIN:CREAT ININE URINE RATIOon 08-02-2023 ALB/CREAT RATIO 400.0 mg/g creat High 0.0-30.0 [facility] Comment on above: Performed By: #### M ALBU #### [facility] ([id number]) [address] [place] [address] Albumin DL <= 20 mg/L (U) [Mass/Vol] 29.5 mg/dL High 0.0-1.9 [facility] Comment on above: Performed By: #### M ALBU #### [facility] ([id number]) [address] [place] [address] URINE CREAT 73.75 mg/dL Normal [facility] Comment on above: Performed By: #### M ALBU #### [facility] ([id number]) [address], [address] [place] [address] Ray 04-19-2023 L Specimen: [id number] Received: 04/20/23 Status: SASHA Matta Num: [id number] Spec Type: Surgical Subm Dr: Salina Lee DPM, MS Tissues: A Bone Fragments - Other than Path Fracture (LT LATERAL MALLEOLUS) Procedures: HE, Gross/Micro L3, Decalcification Age/ Patient Sex Location Account Attending Physician RexAnai Heck 67/M [facility] [id number] Salina Lee DPM, MS SPEC NUM: [id number] RECD: 04/20/23 STATUS: SASHA PULIDOSandy NUM: [id number] KARIME: 04/19/[address]: Salina Lee DPM, MS ENTERED: 04/20/[address] [facility] [address]: Gin Gimenez SPEC TYPE: Surgical [...] in one cassette labeled A1. CPT Codes 64192, 24480 -------- -------- Specimen: [id number] Received: 04/20/23 Status: SASHA Matta Num: [id number] Spec Type: Surgical Subm Dr: Salina Lee,DPM, MS Tissues: A Bone Fragments - Other than Path Fracture (LT LATERAL MALLEOLUS) Procedures: HE, Gross/Micro L3, Decalcification -------- Patient: Anai Goodman [id number] (Continued) -------- Signed (signature on file) Aniekt Krishnamurthy MD 04/23/232202 [facility] POCT EKGon 04-12-2023 [facility] MR ANKLE LT W WO CONTon [...] Bennett MD on 04/05/2023 8:50 AM Normal [facility] CBC AND AUTO DIFFon 03-22-20 ABSOLUTE BASOPHIL 0.0 X10E9/L Normal 0.0-0.2 [facility] Comment on above: Performed By: #### C BCA CMP, 02282-1, 308-1 #### [facility] ([id number]) [address], [address] [place] [address] ABSOLUTE NEUTROPHIL 8.3 X10E9/L High 1.5-6.6 [facility] Comment on above: Performed By: #### C BCA, CMP, 75305-8, 3083- #### [facility] ([id number]) [address] [place] [address] Basophils/100 WBC (Bld) 0.3 % Normal [facility] Comment on above: Performed By: #### C BCA, CMP, 66467-3, 308- #### [facility] ([id number]) [address] [place] [address] Eosinophils (Bld) [#/Vol] 0.4 10*3/uL Normal 0.0-0.4 [facility] Comment on above: Performed By: #### C BCA, CMP, 28940-4, 308-1 #### [facility] ([id number]) [address] [place] [address] Eosinophils/100 WBC (Bld) 4.0 % Normal [facility] Comment on above: Performed By: #### C BCA, CMP, 08080-7, 308-1 #### [facility] ([id number]) [address], [address] [place] [address] Erythrocyte distribution width (RBC) [Ratio] 14.5 % Normal 11.5-15.0 [facility] Comment on above: Performed By: #### C JAYDON CMP, 20351-1, 3083-04 #### [facility] ([id number]) [address] [place] [address] Hematocrit (Bld) [Volume fraction] 45.0 % Normal 39-49 [facility] Comment on above: Performed By: #### Uzair INTERIANO CMP, 10333-2, 3083- #### [facility] ([id number]) [address] [place] [address] Hemoglobin (Bld) [Mass/Vol] 15.2 g/dL Normal 13.0-17.0 [facility] Comment on above: Performed By: #### Uzair INTERIANO CMP, , 3083-04 #### [facility] ([id number]) [address] [place] [address] Lymphocytes (Bld) [#/Vol] 0.8 10*3/uL Low 1.0-3.5 [facility] Comment on above: Performed By: #### Uzair INTERIANO CMP, 22557-2, 3083-04 #### [facility] ([id number]) [address] [place] [address] Lymphocytes/100 WBC (Bld) 8.1 % Normal [facility] Comment on above: Performed By: #### Uzair INTERIANO, CMP, 87712-1, 3083- #### [facility] ([id number]) [address], [address] [place] [address] MCH (RBC) [Entitic mass] 30.6 pg Normal 27-34 [facility] Comment on above: Performed By: #### C BCA, CMP, 92159-5, 3083-04 #### [facility] ([id number]) [address], [address] [place] [address] MCHC (RBC) [Mass/Vol] 33.7 g/dL Normal 32-36 [facility] Comment on above: Performed By: #### C BCA, CMP, 27810-2, 3083- #### [facility] ([id number]) [address] [place] [address] MCV (RBC) [Entitic vol] 91 fL Normal 80-100 P [facility] Comment on above: Performed By: #### C BCA, CMP, 67109-4, 3083-04 #### [facility] ([id number]) [address], [address] [place] [address] Monocytes (Bld) [#/Vol] 0.8 10*3/uL Normal 0-0.9 [facility] Comment on above: Performed By: #### C BCA, CMP, 94691-8, 3083-04 #### [facility] ([id number]) [address], [address] [place] [address] Monocytes/100 WBC (Bld) 7.5 % Normal P [facility] Comment on above: Performed By: #### C BCA, CMP, , 3083- #### [facility] ([id number]) [address], [address] [place] [address] Neutrophils/100 WBC (Bld) 80.1 % Normal [facility] Comment on above: Performed By: #### C BCA, CMP, 03526-7, 3083- #### [facility] ([id number]) [address], [address] [place] [address] Platelet mean volume (Bld) [Entitic vol] 9.0 fL Normal 7-12 [facility] Comment on above: Performed By: #### C BCA, CMP, 79843-0, 308-1 #### [facility] ([id number]) [address], [address] [place] [address] Platelets (Bld) [#/Vol] 205 10*3/uL Normal 150-450 [facility] Comment on above: Performed By: #### C BCA, CMP, 99595-7, 308-1 #### [facility] ([id number]) [address], [address] [place] [address] RBC COUNT 4.95 X10E12/L Normal 4.10-5.70 [facility] Comment on above: Performed By: #### C BCA, CMP, 91336-1, 308- #### [facility] ([id number]) [address] [place] [address] WBC (Bld) [#/Vol] 10.4 10*3/uL Normal 4.0-11.0 [facility] Comment on above: Performed By: #### C BCA, CMP, 53509-0, 3083-1 #### [facility] ([id number]) [address], [address] [place] [address] COMPREHENSIVE METABOLIC PANE Ray 03-22-2023 Albumin [Mass/Vol] 4.3 g/dL Normal 3.2-5.3 [facility] Comment on above: Performed By: #### C BCA, CMP, 25044-3, 3083-1 #### [facility] ([id number]) [address], [address] [place] [address] ALP [Catalytic activity/Vol] 91 U/L Normal 39-130 [facility] Comment on above: Performed By: #### C BCA, CMP, 55020-7, 3084-1 #### [facility] ([id number]) [address], [address] [place] [address] ALT [Catalytic activity/Vol] 36 U/L Normal 0-40 [facility] Comment on above: Performed By: #### C BCA, CMP, 36928-2, 3083- #### [facility] ([id number]) [address] [place] [address] Anion gap [Moles/Vol] 7 mmol/L Normal 5-15 [facility] Comment on above: Performed By: #### C BCA, CMP, 55324-0, 3083- #### [facility] ([id number]) [address], [address] [place] [address] AST [Catalytic activity/Vol] 32 U/L Normal 0-41 [facility] Comment on above: Performed By: #### C BCA, CMP, 47534-3, 3083- #### [facility] ([id number]) [address], [address] [place] [address] Bilirubin [Mass/Vol] 0.8 mg/dL Normal 0.3-1.2 [facility] Comment on above: Performed By: #### C BCA, CMP, 52956-0, 3083- #### [facility] ([id number]) [address], [address] [place] [address] Calcium [Mass/Vol] 10.2 mg/dL Normal 8.5-10.5 [facility] Comment on above: Performed By: #### C BCA, CMP, 77498-0, 3083- #### [facility] ([id number]) [address], [address] [place] [address] Chloride [Moles/Vol] 96 mmol/L Low 98-109 [facility] Comment on above: Performed By: #### C BCA, CMP, 46786-8, 3083-1 #### [facility] ([id number]) [address], [address] [place] [address] CO2 [Moles/Vol] 33 mmol/L High 22-32 [facility] Comment on above: Performed By: #### C BCA, CMP, 78795-6, 308-1 #### [facility] ([id number]) [address], [address] [place] [address] Creatinine [Mass/Vol] 1.61 mg/dL High 0.60-1.30 [facility] Comment on above: Result Comment: METH OD TRACEABLE TO IDMS STANDARD Performed By: #### C JAYDON, CMP, 30083-3, 3083-04 #### [facility] ([id number]) [address], [address] [place] [address] GFR/1.73 sq M.predicted among non-blacks MDRD (S/P/Bld) [Vol rate/Area] 47 mL/min/{1.73_m2} Low >59 [facility] Comment on above: Result Comment: Reported eGFR is based on the CKD-EPI 2020 equation that does not use a race coefficient. Performed By: #### C BCA, CMP, 21139-6, 3083-04 #### [facility] ([id number]) [address], [address] [place] [address] Glucose [Mass/Vol] 77 mg/dL Normal 65-99 [facility] Comment on above: Performed By: #### C JAYDON CMP, 56760-9, 3083-04 #### [facility] ([id number]) [address], [address] [place] [address] Potassium [Moles/Vol] 4.4 mmol/L Normal 3.5-5.0 [facility] Comment on above: Performed By: #### C BCA, CMP, 95628-4, 3083- #### [facility] ([id number]) [address], [address] [place] [address] Protein [Mass/Vol] 7.6 g/dL Normal 6.0-8.0 [facility] Comment on above: Performed By: #### C BCA, CMP, 88197-6, 308-1 #### [facility] ([id number]) [address], [address] [place] [address] Sodium [Moles/Vol] 136 mmol/L Normal 134-146 [facility] Comment on above: Performed By: #### C BCA, CMP, 06152-6, 308-1 #### [facility] ([id number]) [address] [address] [place] [address] Urea nitrogen [Mass/Vol] 37 mg/dL High 5-27 [facility] Comment on above: Performed By: #### C BCA, CMP, 14719-7, 308-1 #### [facility] ([id number]) [address], [facility] [address] [place] [address] HGB A1C (GLYCO-HGB)on 2022 Glucose [Mass/Vol] 143 mg/dL Normal [facility] Comment on above: Performed By: #### C JAYDON, CMP, 18832-3, 3083-1 #### [facility] ([id number]) [address] [address] [place] [address] HbA1c (Bld) [Mass fraction] 6.6 % High 4.4-5.6 [facility] Comment on above: Result Comment: NOTE ADA Guidelines Result HgbA1c Normal : less than 5.7 % Prediabetes : 5.7 % to 6.4 % Diabetes : > 6.4 % Use with caution in patients with abnormal hemoglobin variants as the half-life of red blood cells and in vivo glycation rates are affected. Performed By: #### C BCA, CMP, 40844-7, 3084-1 #### [facility] ([id number]) [address], [address] [place] [address] Lipid 1996 panelon 3 Cholesterol [Mass/Vol] 85 mg/dL Low 150-200 [facility] Comment on above: Performed By: #### C JAYDON, CMP, 92428-2, 3083-04 #### [facility] ([id number]) [address], [address] [place] [address] Cholesterol in HDL [Mass/Vol] 36 mg/dL Low >39 [facility] Comment on above: Result Comment: HDL <40 mg/dL - High Risk HDL > or = 40mg/dL- Desirable HDL >60 mg/dL - Negative Risk Performed By: #### C JAYDON, CMP, 34466-0, 3083-04 #### [facility] ([id number]) [address] [place] [address] Cholesterol in LDL [Mass/Vol] 34 mg/dL Normal <130 [facility] Comment on above: Result Comment: LDL <100 mg/dL - Desirable LDL >160 mg/dL - High Risk Performed By: #### C JAYDON, CMP, 21852-7, 3083-04 #### [facility] ([id number]) [address] [place] [address] Cholesterol in VLDL [Mass/Vol] 15 mg/dL Normal 0-30 [facility] Comment on above: Performed By: #### Uzair INTERIANO, CMP, 14844-1, 3083- #### [facility] ([id number]) [address], [address] [place] [address] CHOLESTEROL:HDL 2.4 Normal 1.0-5.0 [facility] Comment on above: Performed By: #### Uzair BCA, CMP, 80131-0, 308- #### [facility] ([id number]) [address], [address] [place] [address] Triglyceride [Mass/Vol] 75 mg/dL Normal 27-150 [facility] Comment on above: Performed By: #### C BCA, CMP, 92715-7, 3084-1 #### [facility] ([id number]) [address], [address] [place] [address] URIC ACIDon 03-22-2023 Urate [Mass/Vol] 8.0 mg/dL High 2.6-7.2 [facility] Comment on above: Performed By: #### C BCA, CMP, 63901-7, 30807-01 #### [facility] ([id number]) [address], [address] [place] [address] XR cervical spine 2Von 10-05 XR cervical spine 2V [facility] Main [employer] [address] [place] [address] XRay Report Signed Patient: Anai Goodman MR#: [id number] : 1955 Acct:[id number] Age/Sex: 66 / M ADM Date: 10/05/22 Loc: XD Room: Type: [facility] Attending Dr: Dung Serna MD Copies to: [...] Jose Sanabria M.D.10/05/2022 12:36 PM Dictation Location: [place] [address] Transcribed By: BLANCA 10/05/22 1236 Dictated By: Jose Sanabria DO 10/05/22 1233 Signed By: 10/05/22 1236 Normal [facility] Basophils Auto (Bld) [#/Vol] Ordered By: Spenser Elaine on 11-29-2021 Basophils (Bld) [#/Vol] 0.0 10*3/uL 0.0-0.2 [facility] Basophils/100 WBC Auto (Bld) Ordered By: Spenser Elaine on 11-29-2021 Basophils/100 WBC (Bld) 0.5 % . [facility] Blood hemoglobin measurement (mass/volume)Ordered By: Spenser Elaine on 11-29-2021 Hemoglobin (Bld) [Mass/Vol] 12.6 g/dL 13.0-17.0 [facility] Blood leukocytes automated c ount (number/volume)Ordered By: Spenser Elaine on 11-29-2021 WBC (Bld) [#/Vol] 6.8 10*3/uL 4.5-11.0 [facility] COVID CepheidOrdered By: Junior Cortes on 11-29-2021 SARS-CoV-2 (COVID-19) Ab IA Ql Negative Negative [facility] Comment on above: This is a duplicate CepEcoviateid Xpert Xpress CoV-2/Flu/RSV Plus RNA by RT-PCR result to be used for statistical tracking purpose only. SARS-CoV-2 (COVID-19) RNA MEREDITH+probe Ql (Unsp spec) [facility] Creatinine and Glomerular fi ltration rate.predicted panel (S/P/Bld)Ordered By: Spenser Elaine on 11-29-2021 Creatinine [Mass/Vol] 1.38 mg/dL 0.64-1.27 [facility] Eosinophils Auto (Bld) [#/Vo l]Ordered By: Spenser Elaine on 11-29-2021 Eosinophils (Bld) [#/Vol] 0.5 10*3/uL 0.0-0.45 [facility] Eosinophils/100 WBC Auto (Bl d)Ordered By: Spenser Elaine on 11-29-2021 Eosinophils/100 WBC (Bld) 7.5 % . [facility] Erythrocyte distribution wid th Auto (RBC) [Ratio]Ordered By: Spenser Elaine on 11-29-2021 Erythrocyte distribution width (RBC) [Ratio] 15.7 % 12.0-14.8 [facility] Estimated glomerular filtrat ion rate (GFR) non- AmericanOrdered By: Spenser Elaine on 11-29-2021 GFR/1.73 sq M.predicted among non-blacks MDRD (S/P/Bld) [Vol rate/Area] 52 mL/Min [facility] Glucose Glucometer (dC) [M ass/Vol]Ordered By: Reddy Brandt on 11-29-2021 Glucose [Mass/Vol] 141 mg/dL [facility] Comment on above: Random Glucose Refer ence Range is dependent on time and content of last meal. Glucose of more than 200 mg/dL in a nonstressed, ambulatory subject supports the diagnosis of Diabetes Mellitus. Hematocrit Auto (Bld) [Volum e fraction]Ordered By: Spenser Elaine on 11-29-2021 Hematocrit (Bld) [Volume fraction] 38.3 % 38.8-50.0 [facility] Laboratory - Hematology and Cell countsOrdered By: Spenser Ealine on 11-29-2021 Nucleated RBC/100 WBC (Bld) [Ratio] 0.0 % 0-0.5 [facility] Laboratory - Microbiology an d Antimicrobial susceptibilityOrdered By: César Cortes on 11-29-2021 SARS-CoV-2 (COVID-19) RNA MEREDITH+probe Ql (Unsp spec) N/A [facility] Lymphocytes Auto (Bld) [#/Vo l]Ordered By: Spenser Elaine on 11-29-2021 Lymphocytes (Bld) [#/Vol] 0.6 10*3/uL 1.00-4.8 [facility] Lymphocytes/100 WBC Auto (Bl d)Ordered By: Spenser Elaine on 11-29-2021 Lymphocytes/100 WBC (Bld) 9.0 % . [facility] MCH Auto (RBC) [Entitic mass ]Ordered By: Spenser Elaine on 11-29-2021 MCH (RBC) [Entitic mass] 27.6 pg 27.5-35.2 [facility] MCHC Auto (RBC) [Mass/Vol]Or dered By: Spenser Elaine on 11-29-2021 MCHC (RBC) [Mass/Vol] 32.8 g/dL 32.5-35.6 [facility] MCV Auto (RBC) [Entitic vol] Ordered By: Spenser Elaine on 11-29-2021 MCV (RBC) [Entitic vol] 84.3 fL 83.5-101 [facility] Monocytes Auto (Bld) [#/Vol] Ordered By: Spenser Elaine on 11-29-2021 Monocytes (Bld) [#/Vol] 0.7 10*3/uL 0.0-0.8 [facility] Monocytes/100 WBC Auto (Bld) Ordered By: Spenser Elaine on 11-29-2021 Monocytes/100 WBC (Bld) 10.9 % . [facility] Neutrophils Auto (Bld) [#/Vo l]Ordered By: Spenser Elaine on 11-29-2021 Neutrophils (Bld) [#/Vol] 4.9 10*3/uL 1.8-7.7 [facility] Neutrophils/100 WBC Auto (Bl d)Ordered By: Spenser Elaine on 11-29-2021 Neutrophils/100 WBC (Bld) 72.1 % . [facility] No Panel InformationOrdered By: Reddy Brandt on 11-29-2021 Bedside Glucose Comment Glu2: cleaned meter [facility] No Panel InformationOrdered By: Spenser Elaine on 11-29-2021 Estimated GFR () > 60 mL/Min [facility] Comment on above: GFR estimated refere nce range: According to KDOQI guidelines, <60 ml/min/1.73m2 is sufficient to diagnose a patient with chronic kidney disease. Pharmacy Creatinine Clearance (Chem 66.84 [facility] Platelet mean volume Auto (B ld) [Entitic vol]Ordered By: Spenser Elaine on 11-29-2021 Platelet mean volume (Bld) [Entitic vol] 9.3 fL 6.6-10.1 [facility] Platelets Auto (Bld) [#/Vol] Ordered By: Spenser Elaine on 11-29-2021 Platelets (Bld) [#/Vol] 142 10*3/uL 150-450 [facility] RBC Auto (Bld) [#/Vol]Ordere d By: Spenser Elaine on 11-29-2021 RBC (Bld) [#/Vol] 4.54 10*6/uL 3.90-5.60 [facility] Serum or plasma anion gap de terminationOrdered By: Spenser Elaine on 11-29-2021 Anion gap [Moles/Vol] 12.0 mmol/L 6.0-15.0 [facility] Serum or plasma calcium sergei urement (mass/volume)Ordered By: Spenser Elaine on 11-29-2021 Calcium [Mass/Vol] 10.0 mg/dL 8.2-10.2 [facility] Serum or plasma chloride zofia surement (moles/volume)Ordered By: Spenser Elaine on 11-29-2021 Chloride [Moles/Vol] 100 mmol/L 95-114 [facility] Serum or plasma glucose sergei urement (mass/volume)Ordered By: Spenser Elaine on 11-29-2021 Glucose [Mass/Vol] 130 mg/dL 70-100 [facility] Comment on above: ADA recommended refe rence [...] on 11-29-2021 Potassium [Moles/Vol] 4.0 mmol/L 3.5-5.1 [facility] Serum or plasma sodium measu rement (moles/volume)Ordered By: Spenser Chele on 11-29-2021 Sodium [Moles/Vol] 138 mmol/L 136-146 [facility] Serum or plasma total carbon dioxide measurement (moles/volume)Ordered By: Spenser Chele on 11-29-2021 CO2 [Moles/Vol] 30.0 mmol/L 22.0-30.0 [facility] Serum or plasma urea nitroge n measurement (mass/volume)Ordered By: Spenser Elaine on 11-29-2021 Urea nitrogen [Mass/Vol] 22 mg/dL 12-23 [facility] Glucose Glucometer (BldC) [M ass/Vol]Ordered By: Reddy Brandt on 11-03-2021 Glucose [Mass/Vol] 174 mg/dL [facility] Comment on above: Random Glucose Refer ence Range is dependent on time and content of last meal. Glucose of more than 200 mg/dL in a nonstressed, ambulatory subject supports the diagnosis of Diabetes Mellitus. No Panel InformationOrdered By: Reddy Brandt on 11-03-2021 Bedside Glucose Comment Glu2: cleaned meter [facility] COVID-19 Positive/NegativeOr dered By: Reddy Brandt on 11-02-2021 SARS-CoV-2 (COVID-19) N gene MEREDITH+probe Ql (Resp) Negative Negative [facility] Comment on above: Testing for SARS-CoV -2 by RT-PCR This test was developed and its performance characteristics determined by [employer] and validated at the [facility]. This test has not been FDA cleared [...] developed and its performance characteristics determined by [employer] ([employer]) and validated at the [facility]. This test has not been FDA cleared [...] Kaye on 10-27-2021 Glucose [Mass/Vol] 166 mg/dL [facility] Comment on above: Random Glucose Refer ence Range is dependent on time and content of last meal. Glucose of more than 200 mg/dL in a nonstressed, ambulatory subject supports the diagnosis of Diabetes Mellitus. No Panel InformationOrdered By: Ghanshyam Kaye on 10-27-2021 Bedside Glucose Comment Glu2: cleaned meter [facility] Basophils Auto (Bld) [#/Vol] Ordered By: Chante Narayan on 10-25-2021 Basophils (Bld) [#/Vol] 0.0 10*3/uL 0.0-0.2 [facility] Basophils/100 WBC Auto (Bld) Ordered By: Chante Narayan on 10-25-2021 Basophils/100 WBC (Bld) 0.3 % . [facility] Blood hemoglobin measurement (mass/volume)Ordered By: Chante Narayan on 10-25-2021 Hemoglobin (Bld) [Mass/Vol] 11.2 g/dL 13.0-17.0 [facility] Blood leukocytes automated c ount (number/volume)Ordered By: Chante Narayan on 10-25-2021 WBC (Bld) [#/Vol] 5.7 10*3/uL 4.5-11.0 [facility] Creatinine and Glomerular fi ltration rate.predicted panel (S/P/Bld)Ordered By: Chante Narayan on 10-25-2021 Creatinine [Mass/Vol] 1.24 mg/dL 0.64-1.27 [facility] Eosinophils Auto (Bld) [#/Vo l]Ordered By: Chante Narayan on 10-25-2021 Eosinophils (Bld) [#/Vol] 0.4 10*3/uL 0.0-0.45 [facility] Eosinophils/100 WBC Auto (Bl d)Ordered By: Chante Narayan on 10-25-2021 Eosinophils/100 WBC (Bld) 6.7 % . [facility] Erythrocyte distribution wid th Auto (RBC) [Ratio]Ordered By: Chante Narayan on 10-25-2021 Erythrocyte distribution width (RBC) [Ratio] 17.6 % 12.0-14.8 [facility] Estimated glomerular filtrat ion rate (GFR) non- AmericanOrdered By: Chante Narayan on 10-25-2021 GFR/1.73 sq M.predicted among non-blacks MDRD (S/P/Bld) [Vol rate/Area] 59 mL/Min [facility] Hematocrit Auto (Bld) [Volum e fraction]Ordered By: Chante Narayan on 10-25-2021 Hematocrit (Bld) [Volume fraction] 33.0 % 38.8-50.0 [facility] Laboratory - Hematology and Cell countsOrdered By: Chante Narayan on 10-25-2021 Nucleated RBC/100 WBC (Bld) [Ratio] 0.1 % 0-0.5 [facility] Lymphocytes Auto (Bld) [#/Vo l]Ordered By: Chante Narayan on 10-25-2021 Lymphocytes (Bld) [#/Vol] 0.5 10*3/uL 1.00-4.8 [facility] Lymphocytes/100 WBC Auto (Bl d)Ordered By: Chante Narayan on 10-25-2021 Lymphocytes/100 WBC (Bld) 9.4 % . [facility] MCH Auto (RBC) [Entitic mass ]Ordered By: Chante Narayan on 10-25-2021 MCH (RBC) [Entitic mass] 29.3 pg 27.5-35.2 [facility] MCHC Auto (RBC) [Mass/Vol]Or dered By: Chante Narayan on 10-25-2021 MCHC (RBC) [Mass/Vol] 33.8 g/dL 32.5-35.6 [facility] MCV Auto (RBC) [Entitic vol] Ordered By: Chante Narayan on 10-25-2021 MCV (RBC) [Entitic vol] 86.7 fL 83.5-101 [facility] Monocytes Auto (Bld) [#/Vol] Ordered By: Chante Narayan on 10-25-2021 Monocytes (Bld) [#/Vol] 0.8 10*3/uL 0.0-0.8 [facility] Monocytes/100 WBC Auto (Bld) Ordered By: Chante Narayan on 10-25-2021 Monocytes/100 WBC (Bld) 14.5 % . [facility] Neutrophils Auto (Bld) [#/Vo l]Ordered By: Chante Narayan on 10-25-2021 Neutrophils (Bld) [#/Vol] 4.0 10*3/uL 1.8-7.7 [facility] Neutrophils/100 WBC Auto (Bl d)Ordered By: Chante Narayan on 10-25-2021 Neutrophils/100 WBC (Bld) 69.1 % . [facility] No Panel InformationOrdered By: Chante Narayan on 10-25-2021 Estimated GFR () > 60 mL/Min [facility] Comment on above: GFR estimated refere nce range: According to KDOQI guidelines, <60 ml/min/1.73m2 is sufficient to diagnose a patient with chronic kidney disease. Pharmacy Creatinine Clearance (Chem 60.35 [facility] Platelet mean volume Auto (B ld) [Entitic vol]Ordered By: Chante Narayan on 10-25-2021 Platelet mean volume (Bld) [Entitic vol] 8.6 fL 6.6-10.1 [facility] Platelets Auto (Bld) [#/Vol] Ordered By: Chante Narayan on 10-25-2021 Platelets (Bld) [#/Vol] 159 10*3/uL 150-450 [facility] RBC Auto (Bld) [#/Vol]Ordere d By: Chante Narayan on 10-25-2021 RBC (Bld) [#/Vol] 3.81 10*6/uL 3.90-5.60 [facility] Serum or plasma calcium sergei urement (mass/volume)Ordered By: Chante Narayan on 10-25-2021 Calcium [Mass/Vol] 9.1 mg/dL 8.2-10.2 [facility] Serum or plasma chloride zofia surement (moles/volume)Ordered By: Chante Narayan on 10-25-2021 Chloride [Moles/Vol] 102 mmol/L 95-114 [facility] Serum or plasma glucose sergei urement (mass/volume)Ordered By: Chante Narayan on 10-25-2021 Glucose [Mass/Vol] 176 mg/dL 70-100 [facility] Comment on above: ADA recommended refe rence range Random Glucose Reference Range is dependent on time and content of last meal. Glucose of more than 200 mg/dL in a nonstressed, ambulatory subject supports the diagnosis of Diabetes Mellitus. Serum or plasma potassium me asurement (moles/volume)Ordered By: Chante Narayan on 10-25-2021 Potassium [Moles/Vol] 3.6 mmol/L 3.5-5.1 [facility] Serum or plasma sodium measu rement (moles/volume)Ordered By: Chante Narayan on 10-25-2021 Sodium [Moles/Vol] 136 mmol/L 136-146 [facility] Serum or plasma total carbon dioxide measurement (moles/volume)Ordered By: Chante Narayan on 10-25-2021 CO2 [Moles/Vol] 25.8 mmol/L 22.0-30.0 [facility] Serum or plasma urea nitroge n measurement (mass/volume)Ordered By: Chante Narayan on 10-25-2021 Urea nitrogen [Mass/Vol] 32 mg/dL 9-23 [facility] Albumin [Mass/volume] in Ser um or PlasmaOrdered By: Chante Narayan on 10-22-2021 Albumin [Mass/Vol] 3.1 g/dL 3.2-5.5 [facility] Globulin Calc (S) [Mass/Vol] Ordered By: Chante Narayan on 10-22-2021 Globulin (S) [Mass/Vol] 3.0 g/dL [facility] Protein [Mass/volume] in Ser um or PlasmaOrdered By: Chante Narayan on 10-22-2021 Protein [Mass/Vol] 6.1 g/dL 6.1-7.9 [facility] Serum or plasma alanine dasilva otransferase measurement without P-5'-P (enzymatic activiOrdered By: Chante Narayan on 10-22-2021 ALT No additional P-5'-P [Catalytic activity/Vol] 21 U/L 10-60 [facility] Serum or plasma albumin/glob ulin mass ratioOrdered By: Chante Narayan on 10-22-2021 Albumin/Globulin [Mass ratio] 1.0 {ratio} [facility] Serum or plasma alkaline bob sphatase measurement (enzymatic activity/volume)Ordered By: Chante Narayan on 10-22-2021 ALP [Catalytic activity/Vol] 71 U/L 32-92 [facility] Serum or plasma aspartate am inotransferase measurement (enzymatic activity/volume)Ordered By: Chante Narayan on 10-22-2021 AST [Catalytic activity/Vol] 23 U/L 10-42 [facility] Serum or plasma prealbumin m easurement (mass/volume)Ordered By: Chante Narayan on 10-22-2021 Prealbumin [Mass/Vol] 19.4 mg/dL 18.0-38.0 [facility] Serum or plasma total biliru bin measurement (mass/volume)Ordered By: Chante Narayan on 10-22-2021 Bilirubin [Mass/Vol] 1.0 mg/dL 0.3-1.2 [facility] Bacteria identified Anaer cx Nom (Unsp spec)Ordered By: Reddy Brandt on 10-21-2021 Anaerobic microbial culture No Anaerobes Isolated 3 Days [facility] COVID-19 Positive/NegativeOr dered By: Reddy Brandt on 10-21-2021 SARS-CoV-2 (COVID-19) N gene MEREDITH+probe Ql (Resp) Negative Negative [facility] Comment on above: Testing for SARS-CoV -2 by RT-PCR This test was developed and its performance characteristics determined by [employer]) and validated at the [facility]. This test has not been FDA cleared [...] Brandt on 10-21-2021 Glucose [Mass/Vol] 298 mg/dL [facility] Comment on above: Random Glucose Refer ence Range is dependent on time and content of last meal. Glucose of more than 200 mg/dL in a nonstressed, ambulatory subject supports the diagnosis of Diabetes Mellitus. No Panel InformationOrdered By: Reddy Brandt on 10-21-2021 Bedside Glucose Comment Glu2: cleaned meter [facility] Bedside Glucose #2 Comment Cleaned meter [facility] ABO and Rh group post transf usion reaction Nom (Bld)Ordered By: Reddy Brandt on 10-19-2021 Microscopic observation Gram stain Nom (Unsp spec) [facility] COVID-19 Positive/NegativeOr dered By: Reddy Brandt on 10-14-2021 SARS-CoV-2 (COVID-19) N gene MEREDITH+probe Ql (Resp) Negative Negative [facility] Comment on above: Testing for SARS-CoV -2 by RT-PCR This test was developed and its performance characteristics determined by [employer] ([employer]) and validated at the [facility]. This test has not been FDA cleared [...] 10-06-2021 Basophils (Bld) [#/Vol] 0.0 10*3/uL 0.0-0.2 [facility] Basophils/100 WBC Auto (Bld) Ordered By: Reddy Brandt on 10-06-2021 Basophils/100 WBC (Bld) 0.6 % . [facility] Blood hemoglobin measurement (mass/volume)Ordered By: Reddy Brandt on 10-06-2021 Hemoglobin (Bld) [Mass/Vol] 13.7 g/dL 13.0-17.0 [facility] Blood leukocytes automated c ount (number/volume)Ordered By: Reddy Brandt on 10-06-2021 WBC (Bld) [#/Vol] 7.8 10*3/uL 4.5-11.0 [facility] Creatinine and Glomerular fi ltration rate.predicted panel (S/P/Bld)Ordered By: Reddy Brandt on 10-06-2021 Creatinine [Mass/Vol] 1.76 mg/dL 0.64-1.27 [facility] Eosinophils Auto (Bld) [#/Vo l]Ordered By: Reddy Brandt on 10-06-2021 Eosinophils (Bld) [#/Vol] 0.4 10*3/uL 0.0-0.45 [facility] Eosinophils/100 WBC Auto (Bl d)Ordered By: Reddy Brandt on 10-06-2021 Eosinophils/100 WBC (Bld) 4.9 % . [facility] Erythrocyte distribution wid th Auto (RBC) [Ratio]Ordered By: Reddy Brandt on 10-06-2021 Erythrocyte distribution width (RBC) [Ratio] 18.8 % 12.0-14.8 [facility] Erythrocyte sedimentation ra te by Photometric methodOrdered By: Reddy Brandt on 10-06-2021 ESR Photometric method (Bld) [Velocity] 21 mm/hr 0-19 [facility] Estimated glomerular filtrat ion rate (GFR) non- AmericanOrdered By: Reddy Brandt on 10-06-2021 GFR/1.73 sq M.predicted among non-blacks MDRD (S/P/Bld) [Vol rate/Area] 39 mL/Min [facility] Glucose mean value [Mass/vol ume] in Blood Estimated from glycated hemoglobinOrdered By: Reddy Brandt on 10-06-2021 Average glucose Estimated from glycated hemoglobin (Bld) [Mass/Vol] 163 mg/dL [facility] Hematocrit Auto (Bld) [Volum e fraction]Ordered By: Reddy Brandt on 10-06-2021 Hematocrit (Bld) [Volume fraction] 41.1 % 38.8-50.0 [facility] Hemoglobin A1c percentageOrd ered By: Reddy Brandt on 10-06-2021 HbA1c (Bld) [Mass fraction] 7.3 % 4.3-5.6 [facility] Comment on above: Increased risk for d iabetes: 5.7 - 6.4 diabetes: >6.4 glycemic control for adults with diabetes: <7.0 Laboratory - Hematology and Cell countsOrdered By: Reddy Brandt on 10-06-2021 Nucleated RBC/100 WBC (Bld) [Ratio] 0.0 % 0-0.5 [facility] Lymphocytes Auto (Bld) [#/Vo l]Ordered By: Reddy Brandt on 10-06-2021 Lymphocytes (Bld) [#/Vol] 0.8 10*3/uL 1.00-4.8 [facility] Lymphocytes/100 WBC Auto (Bl d)Ordered By: Reddy Brandt on 10-06-2021 Lymphocytes/100 WBC (Bld) 10.9 % . [facility] MCH Auto (RBC) [Entitic mass ]Ordered By: Reddy Brandt on 10-06-2021 MCH (RBC) [Entitic mass] 28.8 pg 27.5-35.2 [facility] MCHC Auto (RBC) [Mass/Vol]Or dered By: Reddy Brandt on 10-06-2021 MCHC (RBC) [Mass/Vol] 33.3 g/dL 32.5-35.6 [facility] MCV Auto (RBC) [Entitic vol] Ordered By: Reddy Brandt on 10-06-2021 MCV (RBC) [Entitic vol] 86.3 fL 83.5-101 [facility] Monocytes Auto (Bld) [#/Vol] Ordered By: Reddy Brandt on 10-06-2021 Monocytes (Bld) [#/Vol] 0.9 10*3/uL 0.0-0.8 [facility] Monocytes/100 WBC Auto (Bld) Ordered By: Reddy Brandt on 10-06-2021 Monocytes/100 WBC (Bld) 11.8 % . [facility] Neutrophils Auto (Bld) [#/Vo l]Ordered By: Reddy Brandt on 10-06-2021 Neutrophils (Bld) [#/Vol] 5.6 10*3/uL 1.8-7.7 [facility] Neutrophils/100 WBC Auto (Bl d)Ordered By: Reddy Brandt on 10-06-2021 Neutrophils/100 WBC (Bld) 71.8 % . [facility] No Panel InformationOrdered By: Reddy Brandt on 10-06-2021 Estimated GFR () 48 mL/Min [facility] Comment on above: GFR estimated refere nce range: According to KDOQI guidelines, <60 ml/min/1.73m2 is sufficient to diagnose a patient with chronic kidney disease. Pharmacy Creatinine Clearance (Chem N/A [facility] Platelet mean volume Auto (B ld) [Entitic vol]Ordered By: Reddy Brandt on 10-06-2021 Platelet mean volume (Bld) [Entitic vol] 9.1 fL 6.6-10.1 [facility] Platelets Auto (Bld) [#/Vol] Ordered By: Reddy Brandt on 10-06-2021 Platelets (Bld) [#/Vol] 131 10*3/uL 150-450 [facility] RBC Auto (Bld) [#/Vol]Ordere d By: Reddy Brandt on 10-06-2021 RBC (Bld) [#/Vol] 4.77 10*6/uL 3.90-5.60 [facility] Serum or plasma C reactive p rotein measurement (mass/volume)Ordered By: Reddy Brandt on 10-06-2021 CRP [Mass/Vol] 0.5 mg/dL 0.0-1.0 [facility] Serum or plasma chloride zofia surement (moles/volume)Ordered By: Reddy Brandt on 10-06-2021 Chloride [Moles/Vol] 93 mmol/L 95-114 [facility] Serum or plasma potassium me asurement (moles/volume)Ordered By: Reddy Brandt on 10-06-2021 Potassium [Moles/Vol] 3.8 mmol/L 3.5-5.1 [facility] Serum or plasma sodium measu rement (moles/volume)Ordered By: Reddy Brandt on 10-06-2021 Sodium [Moles/Vol] 139 mmol/L 136-146 [facility] Serum or plasma total carbon dioxide measurement (moles/volume)Ordered By: Reddy Brandt on 10-06-2021 CO2 [Moles/Vol] 31.4 mmol/L 22.0-30.0 [facility] Serum or plasma urea nitroge n measurement (mass/volume)Ordered By: Reddy Brandt on 10-06-2021 Urea nitrogen [Mass/Vol] 52 mg/dL 9-23 [facility] WOUND CULTUREon 09-12-2021 Bacteria identified Aer cx Nom (Unsp spec) Final report Normal [facility] Comment on above: Performed By: #### C XWND ####[facility] [address] [place] [address]Dr. Anjali Reagan Result 1 Mixed skin areli Normal The [facility] Comment on above: Performed By: #### C XWND ####[facility] [address] [place] [address]Dr. Anjali Reagan CBC AUTO DIFFon 09-09-2021 BASO # 0.0 103/ul Normal 0.0-0.1 [facility] Comment on above: Performed By: #### C BC ####[facility] [address] [place], [place] [address]Dr. Anjali Reagan Basophils/100 WBC (Bld) 0.6 % Normal 0.2-2.0 [facility] Comment on above: Performed By: #### C BC ####[facility] Spnioqcr[address] [place], [place] [address]Dr. Anjali Reagan EO # 0.3 103/ul Normal 0.0-0.7 [facility] Comment on above: Performed By: #### C BC ####[facility] Cl[address]fdvlxi[address] [place], [place] [address]Dr. Anjali Reagan Eosinophils/100 WBC (Bld) 4.1 % Normal 0.9-7.0 [facility] Comment on above: Performed By: #### C BC ####[facility] Ch[address] [place], [place] [address]Dr. Anjali Reagan Erythrocyte distribution width (RBC) [Ratio] 16.1 % Critically high 11.0-15.0 [facility] Comment on above: Performed By: #### C BC ####[facility] Chtentok[address] [place], [place] [address]Dr. Anjali Reagan Hematocrit (Bld) [Volume fraction] 38.3 % Critically low 42.0-54.0 [facility] Comment on above: Performed By: #### C BC ####[facility] Avm[address] [place], [place] [address]Dr. Anjali Reagan Hemoglobin (Bld) [Mass/Vol] 12.0 g/dL Critically low 14.0-18.0 [facility] Comment on above: Performed By: #### C BC ####[facility] [address] [place] [address]Dr. Anjali Reagan IG # 0.04 10e3/ul Critically high 0.00-0.03 [facility] Comment on above: Performed By: #### C BC ####[facility] [address] [place] [address]Dr. Anjali Reagan IG % 0.6 % Critically high 0.0-0.5 [facility] Comment on above: Performed By: #### C BC ####[facility] [address] [place] [address]Dr. Biancaramona Tez LYMPH # 0.9 103/ul Critically low 1.2-3.8 [facility] Comment on above: Performed By: #### C BC ####[facility] [address] [place] [address]Dr. Anjali Reagan Lymphocytes/100 WBC (Bld) 12.6 % Critically low 20.5-60.0 [facility] Comment on above: Performed By: #### C BC ####[facility] [address] [place] [address]Dr. Biancaramona Reagan MANUAL DIFF REQ NO Normal [facility] Comment on above: Performed By: #### C BC ####[facility] [address] [place] [address]Dr. Anjali Reagan MCH (RBC) [Entitic mass] 27.5 pg Normal 25.9-34.0 [facility] Comment on above: Performed By: #### C BC ####[facility] [address] [place] [address]Dr. Anjali Tez MCHC (RBC) [Mass/Vol] 31.3 g/dL Normal 29.9-35.2 [facility] Comment on above: Performed By: #### C BC ####[facility] Cwegpc[address] [place], [place] [address]Dr. Anjali Tez MCV (RBC) [Entitic vol] 87.6 fL Normal 80.0-94.0 [facility] Comment on above: Performed By: #### C BC ####[facility] [address] [place] [id number]. Anjali Reagan MONO # 0.7 103/ul Normal 0.3-0.8 [facility] Comment on above: Performed By: #### C BC ####[facility] Z[address]vx[address] [place] [phone]. Anjali Reagan Monocytes/100 WBC (Bld) 10.3 % Normal 1.7-12.0 [facility] Comment on above: Performed By: #### C BC ####[facility] Kat[address]ure[address] [place] [phone]. Anjali Reagan NEUT # 5.1 103/ul Normal 1.4-6.5 [facility] Comment on above: Performed By: #### C BC ####[facility] [address] [place] [phone]. Anjali Reagan Neutrophils/100 WBC (Bld) 71.8 % Normal 43.0-75.0 [facility] Comment on above: Performed By: #### C BC ####[facility] [address] [place] [phone]. Anjali Reagan Platelet mean volume (Bld) [Entitic vol] 9.4 fL Critically low 9.5-13.5 [facility] Comment on above: Performed By: #### C BC ####[facility] [address] [place] [phone]. Anjali Reagan PLT 249 103/ul Normal 150-450 [facility] Comment on above: Performed By: #### C BC ####[facility] [address] [place] [phone]. Anjali Reagan RBC 4.37 106/ul Critically low 4.70-6.10 [facility] Comment on above: Performed By: #### C BC ####[facility] [address] [place] [phone]. Anjali Reagan WBC 7.1 103/ul Normal 4.0-11.0 [facility] Comment on above: Performed By: #### C BC ####[facility] Jr[address] [place] [phone]. Anjali Reagan CRPon 09-09-2021 CRP 1.9 mg/dL Critically high <=1.0 [facility] Comment on above: Performed By: #### C RP, CMP ####[facility] [address] [place] [address]Dr. Anjali Reagan GRAM STAINon 09-09-2021 COMMENTS NO ORGANISMS OBSERVED Normal [facility] Comment on above: Performed By: #### G STAIN ####[facility] [address] [place] [address]Dr. Anjali Reagan DIPHTHEROIDS Normal [facility] Comment on above: Performed By: #### G STAIN ####[facility] Mupirviws[address] [place], [place] [address]Dr. Anjali Reagan EPITHELIALS Normal [facility] Comment on above: Performed By: #### G STAIN ####[facility] T[address] [place], [place] [address]Dr. Anjali Reagan FUNGAL ELEMENTS Normal [facility] Comment on above: Performed By: #### G STAIN ####[facility] Qprtxedj[address] [place], [place] [address]Dr. Anjali Reagan GRAM NEG BACILLI Normal The [facility] Comment on above: Performed By: #### G STAIN ####[facility] Jrfzimhlka[address] [place], [place] [address]Dr. Anjali Reagan GRAM NEG DIPPLOCOCCI Normal [facility] Comment on above: Performed By: #### G STAIN ####[facility] Hsvxtb[address] [place], [place] [address]Dr. Anjali Reagan GRAM POS BACILLI Normal The [facility] Comment on above: Performed By: #### G STAIN ####[facility] [address] [place] [address]Dr. Anjali Reagan GRAM POSITIVE COCCI Normal The [facility] Comment on above: Performed By: #### G STAIN ####[facility] Morgfr[address] [place], [place] [address]Dr. Anjali Reagan GRAM STAIN SOURCE Left foot lateral Normal [facility] Comment on above: Performed By: #### G STAIN ####[facility] [address] [place] [address]Dr. Anjali Reagan GS_DIPTH Normal [facility] Comment on above: Performed By: #### G STAIN ####[facility] [address] [place] [address]Dr. Anjali Reagan WBC RARE Normal [facility] Comment on above: Performed By: #### G STAIN ####[facility] [address] [place] [address]Dr. Anjali Reagan PROF 14(COMP METB)on 022 Albumin [Mass/Vol] 3.5 g/dL Normal 3.4-5.0 [facility] Comment on above: Performed By: #### C RP, CMP ####[facility] Szeasfyl[address] [place], [place] [address]Dr. Anjali Reagan Albumin/Globulin [Mass ratio] 0.8 {ratio} Normal [facility] Comment on above: Performed By: #### C RP, CMP ####[facility] [address] [place], [place] [address]Dr. Anjali Reagan ALP [Catalytic activity/Vol] 136 U/L Critically high 46-116 [facility] Comment on above: Performed By: #### C RP, CMP ####[facility] [address]pv[address] [place] [address]Dr. Anjali Reagan ALT [Catalytic activity/Vol] 34 U/L Normal 16-63 [facility] Comment on above: Performed By: #### C RP, CMP ####[facility] [address]spri[address] [place] [address]Dr. Anjali Reagan Anion gap [Moles/Vol] 12.9 mmol/L Normal [facility] Comment on above: Performed By: #### C RP, CMP ####[facility] Uufwbucs[address] [place], [place] [address]Dr. Anjali Reagan AST [Catalytic activity/Vol] 27 U/L Normal 15-37 [facility] Comment on above: Performed By: #### C RP, CMP ####[facility] Iyunldsd[address] [place], [place] [address]Dr. Anjali Reagan Bilirubin [Mass/Vol] 0.4 mg/dL Normal 0.2-1.0 [facility] Comment on above: Performed By: #### C RP, CMP ####[facility] Qirzakolir[address] [place], [place] [address]Dr. Ajnali Reagan Calcium [Mass/Vol] 9.7 mg/dL Normal 8.5-10.1 [facility] Comment on above: Performed By: #### C RP, CMP ####[facility] Unm[address]myfz[address] [place], [place] [address]Dr. Anjali Reagan Chloride [Moles/Vol] 103 mmol/L Normal 98-107 [facility] Comment on above: Performed By: #### C RP, CMP ####[facility] Bhm[address]csqc[address] [place], [place] [address]Dr. Anjali Reagan CO2 [Moles/Vol] 28.9 mmol/L Normal 21.0-32.0 [facility] Comment on above: Performed By: #### C RP, CMP ####[facility] M[address]ok[address]xorv[address] [place], [place] [address]Dr. Anjali Reagan Creatinine [Mass/Vol] 1.57 mg/dL Critically high 0.70-1.30 [facility] Comment on above: Performed By: #### C RP, CMP ####[facility] Us[address]fytdwd[address] [place], [place] [address]Dr. Anjali Reagan EGFR-AF RWANDAN 54 mL/min/1.73m2 Critically low >=60 [facility] Comment on above: Performed By: #### C RP, CMP ####[facility] [address] [place], [place] [address]Dr. Anjali Reagan EGFR-NON AF RWANDAN 45 mL/min/1.73m2 Critically low >=60 [facility] Comment on above: Performed By: #### C RP, CMP ####[facility] Px[address] [place], [place] [address]Dr. Anjali Reagan Globulin (S) [Mass/Vol] 4.5 g/dL Normal [facility] Comment on above: Performed By: #### C RP, CMP ####[facility] [address]krqp[address] [place] [phone]. Anjali Reagan Glucose [Mass/Vol] 174 mg/dL Critically high 74-106 [facility] Comment on above: Performed By: #### C RP, CMP ####[facility] A[address] [place] [phone]. Anjali Reagan Potassium [Moles/Vol] 4.8 mmol/L Normal 3.5-5.1 [facility] Comment on above: Performed By: #### C RP, CMP ####[facility] [address] [place] [phone]. Anjali Reagan Protein [Mass/Vol] 8.0 g/dL Normal 6.4-8.2 [facility] Comment on above: Performed By: #### C RP, CMP ####[facility] [address]xsufkm[address] [place] [address]Dr. Anjali Reagan Sodium [Moles/Vol] 140 mmol/L Normal 136-145 [facility] Comment on above: Performed By: #### C RP, CMP ####[facility] X[address]fe[address] [place] [address]Dr. Anjali Reagan Urea nitrogen [Mass/Vol] 34.0 mg/dL Critically high 7.0-18 .0 [facility] Comment on above: Performed By: #### C RP, CMP ####[facility] Eotunodoxs[address] [place], [place] [address]Dr. Anjali Reagan Urea nitrogen/Creatinine [Mass ratio] 21.7 mg/mg [facility] Comment on above: Performed By: #### C RP, CMP ####[facility] [address] [place] [address]Dr. Anjali Reagan XR FOOT RT MIN 3 VIEWSon XR FOOT RT MIN 3 VIEWS Normal [facility] XR ANKLE RT MIN 3 VIEWSon XR ANKLE RT MIN 3 VIEWS Normal [facility] CULTURE BLOODon 08-26-2021 Microscopic examination of blood, culture Culture Observations: NO GROWTH AT 5 DAYS. Normal [facility] Comment on above: Performed By: #### B LDCX2 ####[facility] [address]ffth[address] [place], [place] [address]Dr. Anjali Reagan Microscopic examination of blood, culture Culture Observations: NO GROWTH AT 5 DAYS. Normal [facility] Comment on above: Performed By: #### B LDCX1 ####[facility] Fwh[address]rjdqr[address] [place], [place] [address]Dr. nAjali Reagan PREALBUMINon 08-26-2021 Prealbumin [Mass/Vol] 14 mg/dL Normal 10-36 [facility] Comment on above: Performed By: #### P REALBL ####[facility] [address] [place], [place] [address]Dr. Anjali Reagan CBC W MANUAL DIFFon 08-25-19 ANISOCYTOSIS SLIGHT Normal [facility] Comment on above: Performed By: #### C CORI ####[facility] Fbunoinini[address] [place], [place] [address]Dr. Anjali Reagan ATYPICAL LYMPH # Normal The [facility] Comment on above: Performed By: #### C CORI ####[facility] [address]vny[address]eq[address] [place], [place] [address]Dr. Anjali Reagan ATYPICAL LYMPH % Normal The [facility] Comment on above: Performed By: #### C CORI ####[facility] X[address] [place], [place] [address]Dr. Anjali Reagan BAND # Normal 0.0-0.3 [facility] Comment on above: Performed By: #### C CORI ####[facility] [address]bcpc[address] [place], [place] [address]Dr. Anjali Reagan BAND % Normal 0-5 [facility] Comment on above: Performed By: #### C CORI ####[facility] Ka[address] [place], [place] [address]Dr. Anjali Reagan BASOM # 0.00 103/ul Normal 0.00-0.10 [facility] Comment on above: Performed By: #### C CORI ####[facility] [address]ug[address] [place], [place] [address]Dr. Anjali Reagan BASOM % 0.0 % Critically low 0.2-2.0 [facility] Comment on above: Performed By: #### C CORI ####[facility] [address] [place] [address]Dr. Anjali Reagan BLAST # Normal [facility] Comment on above: Performed By: #### C CORI ####[facility] [address] [place] [phone]. Anjali Reagan BLAST % Normal [facility] Comment on above: Performed By: #### C CORI ####[facility] X[address]ks[address] [place] [address]Dr. Anjali Reagan CORRECTED WBC Normal 4.0-11.0 [facility] Comment on above: Performed By: #### C CORI ####[facility] [address] [place] [address]Dr. Anjali Reagan EOS # 0.34 103/ul Normal 0.00-0.70 [facility] Comment on above: Performed By: #### C CORI ####[facility] [address] [place], [place] [address]Dr. Anjali Reagan EOS% 3.0 % Normal 0.9-7.0 [facility] Comment on above: Performed By: #### C CORI ####[facility] Bnaubevtfi4445 [place] [address]Dr. Anjali Reagan HCT 36.2 % Critically low 42.0-54.0 [facility] Comment on above: Performed By: #### C CORI ####[facility] Lkpxnkuejn0163 [place] [address]Dr. Anjali Reagan HGB 11.8 g/dl Critically low 14.0-18.0 [facility] Comment on above: Performed By: #### C CORI ####[facility] Heoztolyoc[address] [place], [place] [address]Dr. Anjali Reagan LYMPHM # 1.03 103/ul Critically low 1.20-3.80 [facility] Comment on above: Performed By: #### C CORI ####[facility] Ivripbmydj9030 [place] [id number]. Anjali Reagan LYMPHM% 9.0 % Critically low 20.5-60.0 [facility] Comment on above: Performed By: #### C CORI ####[facility] Oewjoycxon0769 [place] [phone]. Anjali Reagan MCH 28.0 pg Normal 25.9-34.0 [facility] Comment on above: Performed By: #### C CORI ####[facility] Rkygpvspwx7709 [place] [id number]. Anjali Reagan MCHC 32.6 g/dl Normal 29.9-35.2 [facility] Comment on above: Performed By: #### C CORI ####[facility] Jmpyqtnjsq6837 [place] [address]Dr. Anjali Reagan MCV 85.8 fL Normal 80.0-94.0 [facility] Comment on above: Performed By: #### C CORI ####[facility] Lqdddxnjxb[address] [place], [place] [address]Dr. Anjali Reagan METAMYELOCYTE # Normal [facility] Comment on above: Performed By: #### C CORI ####[facility] Nmjbpqlovg[address] [place], [place] [address]Dr. Anjali Reagan METAMYELOCYTE % Normal [facility] Comment on above: Performed By: #### C CORI ####[facility] Pljqdnmzbq6021 [place] [address]Dr. Anjali Reagan MONOM# 1.61 103/ul Critically high 0.30-0.80 The [facility] Comment on above: Performed By: #### C CORI ####[facility] Qitctvhusx1072 [place] [address]Dr. Anjali Reagan MONOM% 14.0 % Critically high 1.7-12.0 [facility] Comment on above: Performed By: #### C CORI ####[facility] Klxaegwezy5424 [place] [phone]. Anjali Reagan MPV 8.9 fL Critically low 9.5-13.5 [facility] Comment on above: Performed By: #### C BCFIONA ####[facility] Ysacjftymw0061 [place], [place] [address]Ln. Anjali Reagan MYELOCYTE # Normal [facility] Comment on above: Performed By: #### C BCFIONA ####[facility] Diyzwgutwv1926 [place], [place] [address]Hg. Anjali Reagan MYELOCYTE % Normal [facility] Comment on above: Performed By: #### C BCFIONA ####[facility] Tfywhpfgca8036 [place], [place] [address]Zp. Anjali Reagan NRBC Normal [facility] Comment on above: Performed By: #### C CORI ####[facility] Nsdmqsjudd3101 [place] [phone]. Anjali Reagan PLT 263 103/ul Normal 150-450 [facility] Comment on above: Performed By: #### C CORI ####[facility] Pxeudkjevk1106 [place] [phone]. Anjali Reagan RBC 4.22 106/ul Critically low 4.70-6.10 [facility] Comment on above: Performed By: #### C CORI ####[facility] Akjgmvdolq0662 [place] [phone]. Anjali Reagan RDW 16.0 % Critically high 11.0-15.0 [facility] Comment on above: Performed By: #### C CORI ####[facility] Vyamntbdap4754 [place] [phone]. Anjali Reagan SEG # 8.51 103/ul Critically high 1.40-6.50 The [facility] Comment on above: Performed By: #### C BCFIONA ####[facility] Cwqnqlabft4171 [place] [phone]. Anjali Reagan SEG % 74.0 % Normal 43.0-75.0 [facility] Comment on above: Performed By: #### C BCFIONA ####[facility] Pmfbocgacu9597 [place], [place] [address]Yb. Anjali Reagan WBC 11.5 103/ul Critically high 4.0-11.0 The [facility] Comment on above: Performed By: #### C BCMAN ####[facility] Lesdjgaxkk3973 [place] [address]Dr. Anjali Reagan CRPon 08-24-2021 CRP 11.6 mg/dL Critically high <=1.0 [facility] Comment on above: Performed By: #### C RP, CMP ####[facility] Mxgsriiady9450 [place] [address]Dr. Anjali Reagan PROF 14(COMP METB)on 022 Albumin [Mass/Vol] 3.2 g/dL Critically low 3.4-5.0 [facility] Comment on above: Performed By: #### C RP, CMP ####[facility] Vsidsbxfcm[address] [place], [place] [address]Dr. Anjali Reagan Albumin/Globulin [Mass ratio] 0.7 {ratio} Normal [facility] Comment on above: Performed By: #### C RP, CMP ####[facility] Smacdtzhpl[address] [place], [place] [address]Dr. Anjali Reagan ALP [Catalytic activity/Vol] 107 U/L Normal 46-116 [facility] Comment on above: Performed By: #### C RP, CMP ####[facility] Xwbrbmhweg[address] [place], [place] [address]Dr. Anjali Reagan ALT [Catalytic activity/Vol] 57 U/L Normal 16-63 [facility] Comment on above: Performed By: #### C RP, CMP ####[facility] Teiurzdvec[address] [place], [place] [address]Dr. Anjali Reagan Anion gap [Moles/Vol] 13.7 mmol/L Normal [facility] Comment on above: Performed By: #### C RP, CMP ####[facility] Oncjuvlbxh9[address] [place], [place] [address]Dr. Anjali Reagan AST [Catalytic activity/Vol] 40 U/L Critically high 15-37 [facility] Comment on above: Performed By: #### C RP, CMP ####[facility] Obyvldpntl9[address] [place], [place] [address]Dr. Anjali Reagan Bilirubin [Mass/Vol] 0.6 mg/dL Normal 0.2-1.0 [facility] Comment on above: Performed By: #### C RP, CMP ####[facility] Vuepwqkhyd80[address] [place], [place] [address]Dr. Anjali Reagan Calcium [Mass/Vol] 9.7 mg/dL Normal 8.5-10.1 [facility] Comment on above: Performed By: #### C RP, CMP ####[facility] Fyrcpxsvqw12[address] [place], [place] [address]Dr. Anjali Reagan Chloride [Moles/Vol] 98 mmol/L Normal 98-107 [facility] Comment on above: Performed By: #### C RP, CMP ####[facility] Zusvxkqdqg23[address] [place], [place] [address]Dr. Anjali Reagan CO2 [Moles/Vol] 30.0 mmol/L Normal 21.0-32.0 [facility] Comment on above: Performed By: #### C RP, CMP ####[facility] Pexubjeysm[address] [place], [place] [address]Dr. Anjali Reagan Creatinine [Mass/Vol] 1.73 mg/dL Critically high 0.70-1.30 [facility] Comment on above: Performed By: #### C RP, CMP ####[facility] Wbweyqaheq547[address] [place], [place] [address]Dr. Anjali Reagan EGFR-AF RWANDAN 49 mL/min/1.73m2 Critically low >=60 [facility] Comment on above: Performed By: #### C RP, CMP ####[facility] Cvbqyyddkz2732[address] [place], [place] [address]Dr. Anjali Reagan EGFR-NON AF RWANDAN 40 mL/min/1.73m2 Critically low >=60 [facility] Comment on above: Performed By: #### C RP, CMP ####[facility] Qsqznawuwk6432[address] [place], [place] [address]Dr. Anajli Reagan Globulin (S) [Mass/Vol] 4.7 g/dL Normal [facility] Comment on above: Performed By: #### C RP, CMP ####[facility] Naiuvysgxr4062 [place] [address]Dr. Anjali Reagan Glucose [Mass/Vol] 92 mg/dL Normal 74-106 [facility] Comment on above: Performed By: #### C RP, CMP ####[facility] Qsosnhpnry8107 [place] [address]Dr. Anjali Reagan Potassium [Moles/Vol] 3.7 mmol/L Normal 3.5-5.1 [facility] Comment on above: Performed By: #### C RP, CMP ####[facility] Caughmtazv1189 [place] [address]Dr. Anjali Reagan Protein [Mass/Vol] 7.9 g/dL Normal 6.4-8.2 [facility] Comment on above: Performed By: #### C RP, CMP ####[facility] Majeseylyg27[address] [place], [place] [address]Dr. Anjali Reagan Sodium [Moles/Vol] 138 mmol/L Normal 136-145 [facility] Comment on above: Performed By: #### C RP, CMP ####[facility] Xpzrxtwdfd05[address] [place], [place] [address]Dr. Anjali Reagan Urea nitrogen [Mass/Vol] 50.0 mg/dL Critically high 7.0-18 .0 [facility] Comment on above: Performed By: #### C RP, CMP ####[facility] Wppvsktfnm[address] [place], [place] [address]Dr. Anjali Reagan Urea nitrogen/Creatinine [Mass ratio] 28.9 mg/mg Normal [facility] Comment on above: Performed By: #### C RP, CMP ####[facility] Uhjeppwynq1556 [place] [address]Dr. Anjali Reagan SED RATE [facility] 2021 SED RATE 17 mm/hr Normal <=20 [facility] Comment on above: Performed By: #### S EDR ####[facility] Qgglatzmzd59[address] [place], [place] [address]Dr. Anjali Reagan CBC (INCLUDES DIFF/PLT)on Basophils (Bld) [#/Vol] 0.034 10*3/uL Normal 0-200 [facility] Comment on above: Performed By: #### 6 399, 496, 718, 00293 #### [facility] [place] [address] Incident Manager: Juan Meraz MD Basophils/100 WBC (Bld) 0.3 % Normal [facility] Comment on above: Performed By: #### 6 399, 496, 718, 47829 #### [facility] [place] [address] Incident Manager: Juan Meraz MD Eosinophils (Bld) [#/Vol] 0.023 10*3/uL Normal 15-500 [facility] Comment on above: Performed By: #### 6 399, 496, 718, 67385 #### [facility] [place] [address] Incident Manager: Juan Meraz MD Eosinophils/100 WBC (Bld) 0.2 % Normal [facility] Comment on above: Performed By: #### 6 399, 496, 718, 26264 #### [facility] [place] [address] Incident Manager: Juan Meraz MD Erythrocyte distribution width (RBC) [Ratio] 15.6 % High 11.0-15.0 [facility] Comment on above: Performed By: #### 6 399, 496, 718, 75938 #### [facility] [place] [address] Incident Manager: Juan Meraz MD Hematocrit (Bld) [Volume fraction] 38.9 % Normal 38.5-50.0 [facility] Comment on above: Performed By: #### 6 399, 496, 718, 82905 #### [facility] [place] [address] Incident Manager: Juan Meraz MD Hemoglobin (Bld) [Mass/Vol] 12.7 g/dL Low 13.2-17.1 [facility] Comment on above: Performed By: #### 6 399, 496, 718, 22821 #### [facility] [place] [address] Incident Manager: Juan Meraz MD Lymphocytes (Bld) [#/Vol] 0.531 10*3/uL Low 850-3900 [facility] Comment on above: Performed By: #### 6 399, 496, 718, 85720 #### [facility] [place] [address] Incident Manager: Juan Meraz MD Lymphocytes/100 WBC (Bld) 4.7 % Normal [facility] Comment on above: Performed By: #### 6 399, 496, 718, 79880 #### [facility] [place] [address] Incident Manager: Juan Meraz MD MCH (RBC) [Entitic mass] 28.2 pg Normal 27.0-33.0 [facility] Comment on above: Performed By: #### 6 399, 496, 718, 19675 #### [facility] [place] [address] Incident Manager: Juan Meraz MD MCHC (RBC) [Mass/Vol] 32.6 g/dL Normal 32.0-36.[address] [facility] Comment on above: Performed By: #### 6 399, 496, 718, 68070 #### [facility] [place] [address] Incident Manager: Juan Meraz MD MCV (RBC) [Entitic vol] 86.4 fL Normal 80.0-100.0 [facility] Comment on above: Performed By: #### 6 399, 496, 718, 30593 #### [facility] [place] [address] Incident Manager: Juan Meraz MD Monocytes (Bld) [#/Vol] 1.119 10*3/uL High 200-950 [facility] Comment on above: Performed By: #### 6 399, 496, 718, 55593 #### [facility] [place] [address] Incident Manager: Juan Meraz MD Monocytes/100 WBC (Bld) 9.9 % Normal [facility] Comment on above: Performed By: #### 6 399, 496, 718, 03255 #### [facility] [place] [address] Incident Manager: Juan Meraz MD Neutrophils (Bld) [#/Vol] 9.594 10*3/uL High 3724-6922 [facility] Comment on above: Performed By: #### 6 399, 496, 718, 85136 #### [facility] [place] [address] Incident Manager: Juan Meraz MD Neutrophils/100 WBC (Bld) 84.9 % Normal [facility] Comment on above: Performed By: #### 6 399, 496, 718, 07553 #### [facility] [place] [address] Incident Manager: Juan Meraz MD Platelet mean volume (Bld) [Entitic vol] 10.1 fL Normal 7.5-12.5 [facility] Comment on above: Performed By: #### 6 399, 496, 718, 33430 #### [facility] [place] [address] Incident Manager: Juan Meraz MD Platelets (Bld) [#/Vol] 267 10*3/uL Normal 140-400 [facility] Comment on above: Performed By: #### 6 399, 496, 718, 41395 #### [facility] [place] [address] Incident Manager: Juan Meraz MD RBC (Bld) [#/Vol] 4.50 10*6/uL Normal 4.20-5.80 [facility] Comment on above: Performed By: #### 6 399, 496, 718, 55106 #### [facility] [address], [address] [place] [address] Incident Manager: Juan Meraz MD WBC (Bld) [#/Vol] 11.3 10*3/uL High 3.8-10.8 [facility] Comment on above: Performed By: #### 6 399, 496, 718, 24716 #### [facility] [address], [address] [place] [address] Incident Manager: Juan Meraz MD HEMOGLOBIN A1con 08-23-2021 HEMOGLOBIN [...] Performed By: #### 6 399, 496, 718, 49711 #### [facility] [address], [address] [place] [address] Incident Manager: Juan Meraz MD PHOSPHATE ( PHOSPHORUS)on 08-23-2021 Phosphate [Mass/Vol] 3.7 mg/dL Normal 2.5-4.5 [facility] Comment on above: Order Comment: PATIE NT UNABLE TO VOID; ADVISED TO RETURN FOR COLLECTION. Performed By: #### 6 399, 496, 718, 95859 #### [facility] [place] [address] Incident Manager: Juan Meraz MD PTH, INTACT WITHOUT CALCIUMo [...] Performed By: #### 6 399, 496, 718, 08675 #### [email or web address] [place] [address] [facility], [address] [place] [address] Incident Manager: Juan Meraz MD VITAMIN D,25-OH,TOTAL,IAon 0 08-23-2021 [...] D, (D2,D3), LC/MS/MS is recommended: order code 72998 (patients >2yrs). See Note 1 Note 1 For additional information, please refer to http://education.Listia/faq/CJT399 (This link is being provided for informational/ educational purposes only.) Performed By: #### 6 399, 496, 718, 13812 #### [email or web address] [address], [address] [place] [address] Incident Manager: Juan Meraz MD CBC W MANUAL DIFFon 07-06-19 22 ATYPICAL LYMPH # Normal The [facility] Comment on above: Performed By: #### Uzair PERSAUD ####[facility] Ahsxgcrzdy1555 [place] [phone]. Anjali Reagan ATYPICAL LYMPH % Normal The [facility] Comment on above: Performed By: #### Uzair PERSAUD ####[facility] Lzuiptynri8390 [place], [place] [address]Jt. Anjali Reagan BAND # 0.1 103/ul Normal 0.0-0.3 [facility] Comment on above: Performed By: #### C BCMAN ####[facility] Pglxgvrgen6768 [place] [address]Dr. Anjali Reagan BAND % 1 % Normal 0-5 [facility] Comment on above: Performed By: #### C BCMAN ####[facility] Naljmoymwc3238 [place] [address]Dr. Anjali Reagan BASOM # 0.00 103/ul Normal 0.00-0.10 [facility] Comment on above: Performed By: #### C BCMAN ####[facility] Uioelrtbom6924 [place] [address]Dr. Anjali Reagan BASOM % 0.0 % Critically low 0.2-2.0 [facility] Comment on above: Performed By: #### C BCMAN ####[facility] Trlpmbruga8152 [place] [address]Dr. Anjali Reagan BLAST # Normal [facility] Comment on above: Performed By: #### C BCFIONA ####[facility] Rczervecuh[address] [place], [place] [address]Dr. Yiramona Reagan BLAST % Normal [facility] Comment on above: Performed By: #### C BCFIONA ####[facility] Wxkqniqfxt9661 [place] [address]Dr. Anjali Reagan CORRECTED WBC Normal 4.0-11.0 [facility] Comment on above: Performed By: #### C BCFIONA ####[facility] Aflkhwfbir2534 [place] [address]Dr. Anjali Reagan EOS # 0.16 103/ul Normal 0.00-0.70 [facility] Comment on above: Performed By: #### C BCMAN ####[facility] Tcvcccdsyg[address] [place], [place] [address]Dr. Anjali Reagan EOS% 2.0 % Normal 0.9-7.0 [facility] Comment on above: Performed By: #### C BCMAN ####[facility] Zcbodzfduj0203 [place] [address]Dr. Anjali Reagan HCT 35.3 % Critically low 42.0-54.0 [facility] Comment on above: Performed By: #### C CORI ####[facility] Qcbvudhyqg7794 [place] [address]Dr. Anjali Reagan HGB 11.4 g/dl Critically low 14.0-18.0 [facility] Comment on above: Performed By: #### C CORI ####[facility] Cuvpitmchg5525 [place] [address]Dr. Anjali Reagan LYMPHM # 0.70 103/ul Critically low 1.20-3.80 [facility] Comment on above: Performed By: #### C CORI ####[facility] Wyvyoppscc6814 [place] [address]Dr. Anjali Reagan LYMPHM% 9.0 % Critically low 20.5-60.0 [facility] Comment on above: Performed By: #### C CORI ####[facility] Peneygrvmq7038 [place] [address]Dr. Anjali Reagan MCH 27.5 pg Normal 25.9-34.0 [facility] Comment on above: Performed By: #### C CORI ####[facility] Efocbrfgjp5775 [place] [address]Dr. Anjali Reagan MCHC 32.3 g/dl Normal 29.9-35.2 [facility] Comment on above: Performed By: #### C CORI ####[facility] Ryagfwcmpl2010 [place] [address]Dr. Anjali Reagan MCV 85.3 fL Normal 80.0-94.0 [facility] Comment on above: Performed By: #### C CORI ####[facility] Zajefcxokq0187 [place] [address]Dr. Anjali Reagan METAMYELOCYTE # Normal [facility] Comment on above: Performed By: #### C CORI ####[facility] Opqsqhqmje6812 [place] [address]Dr. Anjali Reagan METAMYELOCYTE % Normal [facility] Comment on above: Performed By: #### Uzair PERSAUD ####[facility] Mpkljnujxq2676 [place] [address]Dr. Anjali Reagan MONOM# 1.09 103/ul Critically high 0.30-0.80 The [facility] Comment on above: Performed By: #### C CORI ####[facility] Wtmyplpmbw6196 [place] [address]Dr. Anjali Reagan MONOM% 14.0 % Critically high 1.7-12.0 [facility] Comment on above: Performed By: #### C CORI ####[facility] Mlgqnmaiia8608 [place] [address]Dr. Anjali Reagan MPV 9.6 fL Normal 9.5-13.5 [facility] Comment on above: Performed By: #### C CORI ####[facility] Kvtorjlfpv0509 [place] [address]Dr. Anjali Reagan MYELOCYTE # Normal [facility] Comment on above: Performed By: #### C CORI ####[facility] Gufpvginlh8524 [place] [address]Dr. Anjali Reagan MYELOCYTE % Normal [facility] Comment on above: Performed By: #### C CORI ####[facility] Zzolhhfzkl4385 [place] [address]Dr. Anjali Reagan NRBC Normal [facility] Comment on above: Performed By: #### C CORI ####[facility] Uiimcqqzsz9324 [place], [place] [address]Bx. Anjali Reagan PLT 119 103/ul Critically low 150-450 [facility] Comment on above: Performed By: #### C CORI ####[facility] Fchmwphapp8594 [place] [phone]. Anjali Reagan RBC 4.14 106/ul Critically low 4.70-6.10 [facility] Comment on above: Performed By: #### C CORI ####[facility] Iugcbaiyxt4150 [place] [address]Dr. Anjali Reagan RDW 16.1 % Critically high 11.0-15.0 [facility] Comment on above: Performed By: #### C CORI ####[facility] Skhivxavuh6794 [place] [address]Dr. Anjali Reagan SEG # 5.77 103/ul Normal 1.40-6.50 [facility] Comment on above: Performed By: #### C CORI ####[facility] Hrivfbmwtj7302 [place] [address]Dr. Anjali Reagan SEG % 74.0 % Normal 43.0-75.0 [facility] Comment on above: Performed By: #### C CORI ####[facility] Awvrgfvrjg1147 [place] [phone]. Anjali Tez WBC 7.8 103/ul Normal 4.0-11.0 [facility] Comment on above: Performed By: #### Uzair PERSAUD ####[facility] Hqtsemlcoj4688 [place] [address]Dr. Biancaramona Reagan CRPon 07-05-2021 CRP [Mass/Vol] mg/L Critically high <=1.0 [facility] Comment on above: Performed By: #### C RP, BMP ####[facility] Uoorrmwrbg7055 [place] [address]Dr. Anjail Reagan PROF CHEM 8 (BAS METB)on Anion gap [Moles/Vol] 10.1 mmol/L Normal [facility] Comment on above: Performed By: #### C RP, BMP ####[facility] Qcdxtylvdp2574 [place] [address]Dr. Anjali Reagan Calcium [Mass/Vol] 9.6 mg/dL Normal 8.5-10.1 [facility] Comment on above: Performed By: #### C RP, BMP ####[facility] Nmjhyyswtb4010 [place] [address]Dr. Anjali Reagan Chloride [Moles/Vol] 100 mmol/L Normal 98-107 [facility] Comment on above: Performed By: #### C RP, BMP ####[facility] Hxxoqgmifs5906 [place] [address]Dr. Anjali Reagan CO2 [Moles/Vol] 30.4 mmol/L Critically high 22.0-30.0 [facility] Comment on above: Performed By: #### C RP, BMP ####[facility] Ewxuowlyco2776 [place] [phone]. Anjali Reagan Creatinine [Mass/Vol] 1.49 mg/dL Critically high 0.66-1.25 [facility] Comment on above: Performed By: #### C RP, BMP ####[facility] Xawspmxdkz8658 [place] [address]Dr. Anjali Reagan EGFR-AF RWANDAN 58 mL/min/1.73m2 Critically low >=60 [facility] Comment on above: Performed By: #### C RP, BMP ####[facility] Hdjvdqffpw3951 [place] [address]Dr. Anjali Reagan EGFR-NON AF RWANDAN 48 mL/min/1.73m2 Critically low >=60 [facility] Comment on above: Performed By: #### C RP, BMP ####[facility] Fwdjdbfpni[address] [place], [place] [address]Dr. Anjali Reagan Glucose [Mass/Vol] 191 mg/dL Critically high 74-106 [facility] Comment on above: Performed By: #### C RP, BMP ####[facility] Hyqcqffndz[address] [place], [place] [address]Dr. Anjali Reagan Potassium [Moles/Vol] 4.5 mmol/L Normal 3.4-5.0 [facility] Comment on above: Performed By: #### C RP, BMP ####[facility] Rpglmjrsjv87[address] [place], [place] [address]Dr. Biancaramona Reagan Sodium [Moles/Vol] 136 mmol/L Critically low 137-145 [facility] Comment on above: Performed By: #### C RP, BMP ####[facility] Qemzggrksn89[address] [place], [place] [address]Dr. Anjali Reagan Urea nitrogen [Mass/Vol] 33.0 mg/dL Critically high 7.0-18 .0 [facility] Comment on above: Performed By: #### C RP, BMP ####[facility] Ehundpwglx[address] [place], [place] [address]Dr. Anjali Reagan Urea nitrogen/Creatinine [Mass ratio] 22.1 mg/mg Normal [facility] Comment on above: Performed By: #### C RP, BMP ####[facility] Mnjulvvksq8085 [place] [phone]. Anjali Reagan SED RATE WESTERGRENon 2021 SED RATE 26 mm/hr Critically high <=20 [facility] Comment on above: Performed By: #### S EDR ####[facility] Uwesrhmwzd9079 [place] [phone]. Anjali Reagan XR ANKLE RT MIN 3 VIEWSon XR ANKLE RT MIN 3 VIEWS Normal T [facility] CT ANKLE RT WO CONon 022 CT ANKLE RT WO CON Normal [facility] CULTURE OTHERon 05-19-2021 CULTURE OTHER Normal [facility] Comment on above: Performed By: #### O THCX ####[facility] Dmkkyolaoe3584 [place] [address]Dr. Anjali Reagan CULTURE ANAEROBICon 05-16-19 22 CULTURE ANAEROBIC Specimen Comments: RIGHT FOOT ABSCESS Culture Observations: NO GROWTH OF ANAEROBES AT 72 HOURS. Normal [facility] Comment on above: Performed By: #### A NACX ####[facility] Ivnoecbogq[address] [place], [place] [address]Dr. Anjali Reagan GRAM STAINon 05-16-2021 DIPHTHEROIDS Normal [facility] Comment on above: Performed By: #### G STAIN ####[facility] Vifyraqhcq1612 [place] [phone]. Anjali Reagan EPITHELIALS Normal [facility] Comment on above: Performed By: #### G STAIN ####[facility] Vhqaaavobu1242 [place] [phone]. Anjali Reagan FUNGAL ELEMENTS Normal [facility] Comment on above: Performed By: #### G STAIN ####[facility] Hbggzuprtp7496 [place] [phone]. Anjali Reagan GRAM NEG BACILLI MANY Normal The [facility] Comment on above: Performed By: #### G STAIN ####[facility] Ptmuqojrym7313 [place] [address]Dr. Anjali Reagan GRAM NEG DIPPLOCOCCI Normal [facility] Comment on above: Performed By: #### G STAIN ####[facility] Rsccvyajtw2216 [place] [address]Dr. Anjali Reagan GRAM POS BACILLI Normal The [facility] Comment on above: Performed By: #### G STAIN ####[facility] Ocdgpcdvys7124 [place] [phone]. Anjali Reagan GRAM POSITIVE COCCI Normal The [facility] Comment on above: Performed By: #### G STAIN ####[facility] Mjaodglgzk[address] [place], [place] [address]Dr. Anjali Reagan GRAM STAIN SOURCE RIGHT FOOT Normal The [facility] Comment on above: Performed By: #### G STAIN ####[facility] Muncgxuryg2267 [place] [address]Dr. Anjali Reagan GS_DIPTH Normal [facility] Comment on above: Performed By: #### G STAIN ####[facility] Undzjqddhi[address] [place], [place] [address]Dr. Anjali Reagan WBC MANY Normal [facility] Comment on above: Performed By: #### G STAIN ####[facility] Yhogdqkogu67[address] [place], [place] [address]Dr. Anjali Reagan XR ANKLE RT MIN 3 VIEWSon XR ANKLE RT MIN 3 VIEWS Normal [facility] COMPREHENSIVE METABOLIC PANE Ray 04-16-2021 Albumin [Mass/Vol] 4.6 g/dL Normal 3.6-5.1 [facility] Comment on above: Performed By: #### 7 600, 496, 01404 #### [facility] [address], [address] [place] [phone] Incident Manager: Juan Meraz MD Albumin/Globulin [Mass ratio] 1.7 {ratio} Normal 1.0-2.5 [facility] Comment on above: Performed By: #### 7 600, 496, 36802 #### [facility] [address] [facility], [address] [place] [phone] Incident Manager: Juan Meraz MD ALP [Catalytic activity/Vol] 119 U/L Normal 35-144 [facility] Comment on above: Performed By: #### 7 600, 496, 94808 #### [facility] [place] [address] Incident Manager: Juan Meraz MD ALT [Catalytic activity/Vol] 19 U/L Normal 9-46 [facility] Comment on above: Performed By: #### 7 600, 496, 02690 #### [facility] [place] [address] Incident Manager: Juan Meraz MD AST [Catalytic activity/Vol] 20 U/L Normal 10-35 [facility] Comment on above: Performed By: #### 7 600, 496, 38114 #### [facility] [place] [address] Incident Manager: Juan Meraz MD Bilirubin [Mass/Vol] 0.6 mg/dL Normal 0.2-1.2 [facility] Comment on above: Performed By: #### 7 600, 496, 91873 #### [facility] [place] [address] Incident Manager: Juan Meraz MD Calcium [Mass/Vol] 9.9 mg/dL Normal 8.6-10.3 [facility] Comment on above: Performed By: #### 7 600, 496, 08511 #### [facility] [place] [address] Incident Manager: Juan Meraz MD Chloride [Moles/Vol] 102 mmol/L Normal 98-110 [facility] Comment on above: Performed By: #### 7 600, 496, 67459 #### [facility] [place] [address] Incident Manager: Juan Meraz MD CO2 [Moles/Vol] 28 mmol/L Normal 20-32 [facility] Comment on above: Performed By: #### 7 600, 496, 71503 #### [facility] [place] [address] Incident Manager: Juan Meraz MD Creatinine [Mass/Vol] 1.59 mg/dL High 0.70-1.[address] [facility] Comment on above: Result Comment: For patients >49 years of age, the reference limit for Creatinine is approximately 13% higher for people identified as -Algerian. Performed By: #### 7 600, 496, 90890 #### [facility] [place] [address] Incident Manager: Juan Meraz MD eGFR NON-AFR. RWANDAN 46 mL/min/1.73m2 Low > OR = 60 [facility] Comment on above: Performed By: #### 7 600, 496, 20578 #### [facility] [place] [address] Incident Manager: Juan Meraz MD GFR/1.73 sq M.predicted among blacks MDRD (S/P/Bld) [Vol rate/Area] 53 mL/min/{1.73_m2} Low > OR = 60 [facility] Comment on above: Performed By: #### 7 600, 496, 11652 #### [facility] [place] [address] Incident Manager: Juan Meraz MD Globulin (S) [Mass/Vol] 2.7 g/dL Normal 1.9-3.7 [facility] Comment on above: Performed By: #### 7 600, 496, 80711 #### [facility] [place] [address] Incident Manager: Juan Meraz MD Glucose [Mass/Vol] 176 mg/dL High 65-139 [facility] Comment on above: Result Comment: Non-fasting reference interval For someone without known diabetes, a glucose value >125 mg/dL indicates that they may have diabetes and this should be confirmed with a follow-up test. Performed By: #### 7 600, 496, 22098 #### [facility] [address] [place] [address] Incident Manager: Juan Meraz MD Potassium [Moles/Vol] 4.2 mmol/L Normal 3.5-5.3 [facility] Comment on above: Performed By: #### 7 600, 496, 73318 #### [facility] [place] [address] Incident Manager: Juan Meraz MD Protein [Mass/Vol] 7.3 g/dL Normal 6.1-8.1 [facility] Comment on above: Performed By: #### 7 600, 496, 89451 #### [facility] [place] [address] Incident Manager: Juan Meraz MD Sodium [Moles/Vol] 138 mmol/L Normal 135-146 [facility] Comment on above: Performed By: #### 7 600, 496, 95886 #### [facility] [place] [address] Incident Manager: Juan Meraz MD Urea nitrogen [Mass/Vol] 48 mg/dL High 7-25 [facility] Comment on above: Performed By: #### 7 600, 496, 67770 #### [facility] [place] [address] Incident Manager: Juan Meraz MD Urea nitrogen/Creatinine [Mass ratio] 30 mg/mg High 6-22 [facility] Comment on above: Performed By: #### 7 600, 496, 48779 #### [facility] [place] [address] Incident Manager: Juan Meraz MD HEMOGLOBIN A1con 04-16-2021 HEMOGLOBIN [...] 1 0165, 496, 905 #### [facility] [address], [address] [place] [address] Incident Manager: Juan Meraz MD LIPID PANEL, [facility] 04-02 Cholesterol [Mass/Vol] 108 mg/dL Normal <200 [facility] Comment on above: Order Comment: FASTI NG:NO FASTING: NO Performed By: #### 7 600, 496, 51550 #### [facility] [address], [address] [place] [address] Incident Manager: Juan Meraz MD Cholesterol in HDL [Mass/Vol] 47 mg/dL Normal > OR = 40 [facility] Comment on above: Order Comment: FASTI NG:NO FASTING: NO Performed By: #### 7 600, 496, 69930 #### [facility] [address], [address] [place] [address] Incident Manager: Juan Meraz MD Cholesterol in LDL [Mass/Vol] [...] LDL-C. Cam[place] BAH et al. TABITHA. 2013;310(19): 0937-1895 (http://education.MolecularMD.Cupid-Labs/faq/CHF551) Performed By: #### 7 600, 496, 18069 #### [facility] [address], [address] [place] [address] Incident Manager: Juan Meraz MD Cholesterol.total/Choles terol in HDL [Mass ratio] 2.3 {ratio} Normal <5.0 [facility] Comment on above: Order Comment: FASTI NG:NO FASTING: NO Performed By: #### 7 600, 496, 22087 #### [facility] [address], [address] [place] [address] Incident Manager: Juan Meraz MD NON HDL CHOLESTEROL 61 mg/dL (calc) Normal <130 [facility] Comment on above: Order Comment: FASTI NG:NO FASTING: NO Result Comment: For patients with diabetes plus 1 major ASCVD risk factor, treating to a non-HDL-C goal of <100 mg/dL (LDL-C of <70 mg/dL) is considered a therapeutic option. Performed By: #### 7 600, 496, 85660 #### [facility] [place] [address] Incident Manager: Juan Meraz MD Triglyceride [Mass/Vol] 102 mg/dL Normal <150 [facility] Comment on above: Order Comment: FASTI NG:NO FASTING: NO Performed By: #### 7 600, 496, 91438 #### [facility] [address], [address] [place] [address] Incident Manager: Juan Meraz MD CT ANKLE RT WO CONon 022 CT ANKLE RT WO CON Normal [facility] XR ANKLE RT MIN 3 VIEWSon XR ANKLE RT MIN 3 VIEWS Normal [facility] ACID FAST SMEAR AND CXon Acid Fast Culture Negative Normal [facility] Comment on above: Result Comment: No a rj fast bacilli isolated after 6 weeks. Performed By: #### A FB ####[facility] Pdwzdixjla9835 [place], [place] [address]Bb. Anjali Reagan Acid Fast Smear Negative Normal [facility] Comment on above: Performed By: #### A FB ####[facility] Uayrcolvln6336 [place], [place] [address]Ep. Anjali [employer] Specimen Processing Direct Inoculation Normal [facility] Comment on above: Performed By: #### A FB ####[facility] Prdepqrrkq3446 [place] [phone]. Anjali Reagan ACID FAST SMEAR AND CXon Acid Fast Culture Negative Normal [facility] Comment on above: Result Comment: No a rj fast bacilli isolated after 6 weeks. Performed By: #### A FB ####[facility] Oriyrfjyzb7653 [place] [phone]. Anjali Reagan Acid Fast Smear Negative Normal [facility] Comment on above: Performed By: #### A FB ####[facility] Jmtlnqzltf[address] [place], [place] [id number]. Anjali [employer] Specimen Processing Tissue Grinding [facility] Comment on above: Performed By: #### A FB ####[facility] Wofwtwrcds[address] [place], [place] [address]Dr. Anjali Reagan [employer] Specimen Processing Direct Inoculation Normal [facility] Comment on above: Performed By: #### A FB ####[facility] Ojjmzzarbo[address] [place], [place] [id number]. Anjali Reagan FUNGAL CULTUREon 03-15-2021 Fungus (Mycology) Culture Final report Normal [facility] Comment on above: Performed By: #### C XFUN ####[facility] Dcahmbnrzw[address] [place], [place] [id number]. Anjali Reagan Fungus Stain Final report Normal [facility] Comment on above: Performed By: #### C XFUN ####[facility] Vzvurdceba[address] [place], [place] [address]Dr. Anjali Reagan Result 1 Comment Normal [facility] Comment on above: Result Comment: MIRIAN/ Calcofluor preparation: no fungus observed. Performed By: #### C XFUN ####[facility] Bbosetbrjr[address] [place], [place] [address]Dr. Anjali Reagan Result Comment: No y east or mold isolated after 4 weeks. FUNGAL CULTUREon 03-09-2021 Fungus (Mycology) Culture Final report Normal [facility] Comment on above: Performed By: #### C XFUN ####[facility] Ybmktuptme[address] [place], [place] [id number]. Anjali Reagan Fungus Stain Final report Normal [facility] Comment on above: Performed By: #### C XFUN ####[facility] Tgfgbvoaub4953 [place], [place] [address]Fd. Anjali Reagan Result 1 Comment Normal [facility] Comment on above: Result Comment: MIRIAN/ Calcofluor preparation: no fungus observed. Performed By: #### C XFUN ####[facility] Yohpqfghgt8591 [place], [place] [address]Ix. Anjali Tez Result Comment: No y east or mold isolated after 4 weeks. XR ANKLE RT MIN 3 VIEWSon XR ANKLE RT MIN 3 VIEWS Normal T he [facility] Otolaryngology Office/Clinic Noteon 02-28-2021 Otolaryngology Office/Clinic [...] time. They were unable to travel to [place] as he required another right ankle surgery. [...] Dr. Freed. Previous pathology by physician in [place] about 1 year ago. PMHx of multiple [...] postauricular m (more content not included)... Normal [facility] CBC W MANUAL DIFFon 02-13-20 21 ATYPICAL LYMPH # Normal The [facility] Comment on above: Performed By: #### C CORI ####[facility] Dhbahcadak[address] [place] [address]Dr. Anjali Reagan ATYPICAL LYMPH % Normal The [facility] Comment on above: Performed By: #### C CORI ####[facility] Vbgfvyrrtg3316 [place] [address]Dr. Biancalan Reagan BAND # 0.3 103/ul Normal 0.0-0.3 [facility] Comment on above: Performed By: #### C CORI ####[facility] Ufcbrogqga1275 [place] [address]Dr. Biancalan Reagan BAND % 4 % Normal 0-5 [facility] Comment on above: Performed By: #### C CORI ####[facility] Lsyngywphw20[address] [place] [address]Dr. Biancalan Reagan BASOM # 0.00 103/ul Normal 0.00-0.10 [facility] Comment on above: Performed By: #### C BCFIONA ####[facility] Oexddzejmi7674 [place] [address]Dr. Anjali Reagan BASOM % 0.0 % Critically low 0.2-2.0 [facility] Comment on above: Performed By: #### C CORI ####[facility] Uhxvtfdmoc0889 [place] [address]Dr. Anjali Reagan BLAST # Normal [facility] Comment on above: Performed By: #### C BCFIONA ####[facility] Guudfhxbjg5665 [place] [address]Dr. Anjali Reagan BLAST % Normal [facility] Comment on above: Performed By: #### C CORI ####[facility] Owjypzwjph[address] [place], [place] [address]Dr. Anjali Reagan CORRECTED WBC Normal 4.0-11.0 [facility] Comment on above: Performed By: #### C CORI ####[facility] Zzxpdbyfxb[address] [place], [place] [address]Dr. Anjali Reagan EOS # 0.28 103/ul Normal 0.00-0.70 [facility] Comment on above: Performed By: #### C CORI ####[facility] Zdivoozdye[address] [place], [place] [address]Dr. Anjali Regaan EOS% 4.0 % Normal 0.9-7.0 [facility] Comment on above: Performed By: #### C BCFIONA ####[facility] Glikzarmpl[address] [place], [place] [address]Dr. Anjali Reagan HCT 28.5 % Critically low 42.0-54.0 [facility] [place] [facility] Comment on above: Performed By: #### C BCFIONA ####[facility] Reybggqmim[address] [place], [place] [address]Dr. Anjali Reagan HGB 8.6 g/dl Critically low 14.0-18.0 [facility] Comment on above: Performed By: #### C CORI ####[facility] Xxctkfdijl[address] [place], [place] [address]Dr. Anjali Reagan HYPOCHROMASIA 3+ Normal [facility] Comment on above: Performed By: #### C CORI ####[facility] Uaoeewyvoo2131 [place] [phone]. Anjali Reagan LYMPHM # 0.57 103/ul Critically low 1.20-3.80 [facility] Comment on above: Performed By: #### C BCFIONA ####[facility] Tiobninvtn2128 [place] [phone]. Anjali Reagan LYMPHM% 8.0 % Critically low 20.5-60.0 The [facility] Comment on above: Performed By: #### C CORI ####[facility] Fspgyzmcjf8364 [place] [phone]. Anjali Reagan MCH 25.4 pg Critically low 25.9-34.0 [facility] Comment on above: Performed By: #### C CORI ####[facility] Xiztlfhodz1989 [place] [phone]. Anjali Reagan MCHC 30.2 g/dl Normal 29.9-35.2 [facility] Comment on above: Performed By: #### C CORI ####[facility] Zkkcowhhsy8631 [place] [phone]. Anjali Reagan MCV 84.1 fL Normal 80.0-94.0 [facility] Comment on above: Performed By: #### C CORI ####[facility] Fhvcksxotg0268 [place] [phone]. Anjali Reagan METAMYELOCYTE # Normal [facility] Comment on above: Performed By: #### C BCFIONA ####[facility] Clljcydemr5702 [place] [phone]. Anjali Reagan METAMYELOCYTE % Normal [facility] Comment on above: Performed By: #### C CORI ####[facility] Suwthfgljg0720 [place] [phone]. Anjali Reagan MICROCYTOSIS 2+ Normal [facility] Comment on above: Performed By: #### C CORI ####[facility] Catyfchpek5944 [place] [phone]. Anjali Reagan MONOM# 0.14 103/ul Critically low 0.30-0.80 [facility] Comment on above: Performed By: #### C CORI ####[facility] Blaoctrket1185 [place] [phone]. Anjali Reagan MONOM% 2.0 % Normal 1.7-12.0 [facility] Comment on above: Performed By: #### C CORI ####[facility] Capybewyco8114 [place] [address]Dr. Anjali Reagan MPV 9.3 fL Critically low 9.5-13.5 [facility] Comment on above: Performed By: #### C CORI ####[facility] Harwtiaffo45[address] [place] [address]Dr. Anjali Reagan MYELOCYTE # Normal [facility] Comment on above: Performed By: #### C CORI ####[facility] Tckkdltscj5893 [place] [address]Dr. Anjali Reagan MYELOCYTE % Normal [facility] Comment on above: Performed By: #### C CORI ####[facility] Zwaefqoqdj0110 [place] [address]Dr. Anjali Reagan NRBC 1 Normal [facility] Comment on above: Performed By: #### C CORI ####[facility] Hrzqjptdud0746 [place] [phone]. Anjali Reagan PLT 186 103/ul Normal 150-450 [facility] Comment on above: Performed By: #### C CORI ####[facility] Rpecxlfjow7367 [place] [phone]. Anjali Reagan RBC 3.39 106/ul Critically low 4.70-6.10 [facility] Comment on above: Performed By: #### C CORI ####[facility] Msqepacsrs7870 [place] [address]Dr. Anjali Reagan RDW 18.8 % Critically high 11.0-15.0 [facility] Comment on above: Performed By: #### C CORI ####[facility] Uvjydpihjz2709 [place] [address]Dr. Anjali Reagan SEG # 5.82 103/ul Normal 1.40-6.50 [facility] Comment on above: Performed By: #### C CORI ####[facility] Ahhxoagolb2186 [place] [address]Dr. Anjali Reagan SEG % 82.0 % Critically high 43.0-75.0 [facility] Comment on above: Performed By: #### C BCFIONA ####[facility] Wlhgvbvxqx6410 [place] [address]Dr. Anjali Tez WBC 7.1 103/ul Normal 4.0-11.0 [facility] Comment on above: Performed By: #### C CORI ####[facility] Uthsadkchh2519 [place] [address]Dr. Anjali Reagan POINT OF CARE GLUCOSEon 01-31 Glucose [Mass/Vol] 175 mg/dL Critically high 74-106 [facility] Comment on above: Performed By: #### P OCGLUC ####[facility] Xpzfdnjywt0415 [place] [address]Dr. Anjali Reagan PROF 14(COMP METB)on 021 Albumin [Mass/Vol] 2.4 g/dL Critically low 3.5-5.0 [facility] Comment on above: Performed By: #### C MP ####[facility] Zpputjfhwr7688 [place] [address]Dr. Anjali Reagan Albumin/Globulin [Mass ratio] 0.6 {ratio} Normal [facility] Comment on above: Performed By: #### C MP ####[facility] Xoaxibiqjn5927 [place] [address]Dr. Anjali Reagan ALP [Catalytic activity/Vol] 93 U/L Normal 38-126 [facility] Comment on above: Performed By: #### C MP ####[facility] Ibbxpsgyek6234 [place] [address]Dr. Anjali Reagan ALT [Catalytic activity/Vol] 18 U/L Critically low 21-72 [facility] Comment on above: Performed By: #### C MP ####[facility] Mxisutjhxw7850 [place] [phone]. Anjali Reagan Anion gap [Moles/Vol] 12.5 mmol/L Normal [facility] Comment on above: Performed By: #### C MP ####[facility] Eispvqabno0402 [place] [phone]. Anjali Reagan AST [Catalytic activity/Vol] 30 U/L Normal 17-59 [facility] Comment on above: Performed By: #### C MP ####[facility] Ojzvycyhxq6935 [place] [phone]. Anjali Reagan Bilirubin [Mass/Vol] 0.5 mg/dL Normal 0.2-1.3 [facility] Comment on above: Performed By: #### C MP ####[facility] Kxpopdjpoe[address] [place], [place] [address]Dr. Biancaramona Reagan Calcium [Mass/Vol] 8.5 mg/dL Normal 8.4-10.2 [facility] Comment on above: Performed By: #### C MP ####[facility] Ccgapacskk2472 [place] [address]Dr. Anjali Tez Chloride [Moles/Vol] 103 mmol/L Normal 98-107 [facility] Comment on above: Performed By: #### C MP ####[facility] Hzsenbwzvl4382 [place] [address]Dr. Biancaramona Reagan CO2 [Moles/Vol] 25.8 mmol/L Normal 22.0-30.0 The [facility] Comment on above: Performed By: #### C MP ####[facility] Ssojoosbnb1434 [place] [phone]. Anjali Reagan Creatinine [Mass/Vol] 1.09 mg/dL Normal 0.66-1.25 [facility] Comment on above: Performed By: #### C MP ####[facility] Vzstdmagks9770 [place] [address]Dr. Anjali Tez EGFR-AF RWANDAN >60 Normal >=60 The [facility] Comment on above: Performed By: #### C MP ####[facility] Sjvwhnzgij1428 [place] [phone]. Anjali Reagan EGFR-NON AF RWANDAN >60 Normal >=60 [facility] Comment on above: Performed By: #### C MP ####[facility] Tgtizemgms5552 [place] [address]Dr. Anjali Reagan Globulin (S) [Mass/Vol] 3.7 g/dL Normal [facility] Comment on above: Performed By: #### C MP ####[facility] Jwirisgyyo6759 [place] [address]Dr. Anjali Reagan Glucose [Mass/Vol] 165 mg/dL Critically high 74-106 [facility] Comment on above: Performed By: #### C MP ####[facility] Hrfzngxvik0397 [place] [address]Dr. Anjali Reagan Potassium [Moles/Vol] 4.3 mmol/L Normal 3.4-5.0 [facility] Comment on above: Performed By: #### C MP ####[facility] Adrwhmooza[address] [place], [place] [address]Dr. Anjali Reagan Protein [Mass/Vol] 6.1 g/dL Normal 6.1-8.2 [facility] Comment on above: Performed By: #### C MP ####[facility] Sjevzyjigt62[address] [place], [place] [address]Dr. Anjali Reagan Sodium [Moles/Vol] 137 mmol/L Normal 137-145 [facility] Comment on above: Performed By: #### C MP ####[facility] Wzskrwlmvg[address] [place], [place] [address]Dr. Anjali Reagan Urea nitrogen [Mass/Vol] 24.0 mg/dL Critically high 9.0-20 .0 [facility] Comment on above: Performed By: #### C MP ####[facility] Ytrdqudwon[address] [place], [place] [address]Dr. Anjali Reagan Urea nitrogen/Creatinine [Mass ratio] 22.0 mg/mg Normal [facility] Comment on above: Performed By: #### C MP ####[facility] Nnprjnypza[address] [place], [place] [address]Dr. Anjali Reagan ALBUMINon 02-11-2021 Albumin [Mass/Vol] 2.8 g/dL Critically low 3.5-5.0 [facility] Comment on above: Performed By: #### P REALB, ALB ####[facility] Kaxukskxlx2267 [place] [address]Dr. Anjali Reagan CBC AUTO DIFFon 02-11-2021 BASO # 0.0 103/ul Normal 0.0-0.1 [facility] Comment on above: Performed By: #### C BC ####[facility] Yobvblqhtm[address] [place], [place] [address]Dr. Anjali Tez Basophils/100 WBC (Bld) 0.5 % Normal 0.2-2.0 [facility] Comment on above: Performed By: #### C BC ####[facility] Xfjjpxldsl[address] [place], [place] [address]Dr. Anjali Tez EO # 0.5 103/ul Normal 0.0-0.7 [facility] Comment on above: Performed By: #### C BC ####[facility] Uwgpwxijvv[address] [place], [place] [address]Dr. Anjali Tez Eosinophils/100 WBC (Bld) 7.4 % Critically high 0.9-7.0 [facility] Comment on above: Performed By: #### C BC ####[facility] Kwxxliggct[address] [place] [id number]. Biancaramona Reagan Erythrocyte distribution width (RBC) [Ratio] 18.7 % Critically high 11.0-15.0 [facility] Comment on above: Performed By: #### C BC ####[facility] Lhjkfzmbgu[address] [place], [place] [address]Dr. Anjali Reagan Hematocrit (Bld) [Volume fraction] 30.7 % Critically low 42.0-54.0 [facility] Comment on above: Performed By: #### C BC ####[facility] Gfmptmwtti[address] [place], [place] [address]Dr. Anjali Tez Hemoglobin (Bld) [Mass/Vol] 9.5 g/dL Critically low 14.0-18.0 [facility] Comment on above: Performed By: #### C BC ####[facility] Asnsrppfgb[address] [place] [address]DrVeronica Reagan IG # 0.05 10e3/ul Critically high 0.00-0.03 [facility] Comment on above: Performed By: #### C BC ####[facility] Ebdydgivwf5279 [place] [phone] Reagan IG % 0.8 % Critically high 0.0-0.5 [facility] Comment on above: Performed By: #### C BC ####[facility] Goprssknyo05[address] [place] [address]DrVeronica Reagan LYMPH # 0.6 103/ul Critically low 1.2-3.8 [facility] Comment on above: Performed By: #### C BC ####[facility] Nsrtqiozlt67[address] [place] [address]DrVeronica Reagan Lymphocytes/100 WBC (Bld) 8.5 % Critically low 20.5-60.0 [facility] Comment on above: Performed By: #### C BC ####[facility] Irnmghtcsg01[address] [place] [address]DrVeronica Reagan MANUAL DIFF REQ NO Normal [facility] Comment on above: Performed By: #### C BC ####[facility] Cqsrrofhkw[address] [place] [address]DrVeronica Reagan MCH (RBC) [Entitic mass] 25.3 pg Critically low 25.9-34 .0 [facility] Comment on above: Performed By: #### C BC ####[facility] Ytcdbqmhnx0747 [place] [address]DrVeronica Reagan MCHC (RBC) [Mass/Vol] 30.9 g/dL Normal 29.9-35.2 [facility] Comment on above: Performed By: #### C BC ####[facility] Qaiidbvjma9206 [place] [address]DrVeronica Reagan MCV (RBC) [Entitic vol] 81.6 fL Normal 80.0-94.0 [facility] Comment on above: Performed By: #### C BC ####[facility] Srfnmfnige7800 [place] [phone]. Anjali Reagan MONO # 0.8 103/ul Normal 0.3-0.8 [facility] Comment on above: Performed By: #### C BC ####[facility] Aevpjzuyji0841 [place] [phone]. Anjali Reagan Monocytes/100 WBC (Bld) 12.2 % Critically high 1.7-12. 0 [facility] Comment on above: Performed By: #### C BC ####[facility] Jdcjcdhdfj2300 [place] [phone]. Anjali Reagan NEUT # 4.6 103/ul Normal 1.4-6.5 [facility] Comment on above: Performed By: #### C BC ####[facility] Tcuyxcfbiw0046 [place] [address]Dr. Anjali Reagan Neutrophils/100 WBC (Bld) 70.6 % Normal 43.0-75.0 [facility] Comment on above: Performed By: #### C BC ####[facility] Ggypzythdy8004 [place] [phone]. Anjali Reagan Platelet mean volume (Bld) [Entitic vol] 9.6 fL Normal 9.5-13.5 [facility] Comment on above: Performed By: #### C BC ####[facility] Fwlbmfrqle0549 [place] [phone]. Anjali Reagan PLT 205 103/ul Normal 150-450 [facility] Comment on above: Performed By: #### C BC ####[facility] Spmgdbsjxe8208 [place] [phone]. Anjali Reagan RBC 3.76 106/ul Critically low 4.70-6.10 [facility] Comment on above: Performed By: #### C BC ####[facility] Mgnvjjjngc0294 [place] [phone]. Anjali Reagan WBC 6.5 103/ul Normal 4.0-11.0 [facility] Comment on above: Performed By: #### C BC ####[facility] Lvaqfxolpv0071 [place] [phone]. Anjali Reagan CULTURE ANAEROBICon 02-12-20 21 CULTURE ANAEROBIC Specimen Comments: RIGHT ANKLE JOINT Culture Observations: NO GROWTH AT 72 HRS Normal [facility] Comment on above: Performed By: #### A NACX ####[facility] Zltoqutiky[address] [place], [place] [address]Dr. Anjali Reagan CULTURE OTHERon 02-11-2021 CULTURE OTHER Specimen Comments: RIGHT ANKLE JOINT Culture Observations: NO GROWTH AT 72 HRS Normal [facility] Comment on above: Performed By: #### O THCX ####[facility] Lldfflmkab2210[address] [place], [place] [address]Dr. Anjali Reagan GRAM STAINon 02-11-2021 COMMENTS NO ORGANISMS OBSERVED Normal [facility] Comment on above: Performed By: #### G STAIN ####[facility] Bnfaljowzr2230[address] [place], [place] [address]Dr. Anjali Reagan DIPHTHEROIDS Normal [facility] Comment on above: Performed By: #### G STAIN ####[facility] Bpbzpumdvk87[address] [place], [place] [address]Dr. Anjali Reagan EPITHELIALS Normal [facility] Comment on above: Performed By: #### G STAIN ####[facility] Waagvcwomj89[address] [place], [place] [address]Dr. Anjali Reagan FUNGAL ELEMENTS Normal [facility] Comment on above: Performed By: #### G STAIN ####[facility] Scwtnssivb8[address] [place], [place] [address]Dr. Anjali Reagan GRAM NEG BACILLI Normal The [facility] Comment on above: Performed By: #### G STAIN ####[facility] Pbmswtftgk28[address] [place], [place] [address]Dr. Anjali Reagan GRAM NEG DIPPLOCOCCI Normal [facility] Comment on above: Performed By: #### G STAIN ####[facility] Ombkdlcceh[address] [place], [place] [address]Dr. Anjali Reagan GRAM POS BACILLI Normal The [facility] Comment on above: Performed By: #### G STAIN ####[facility] Ytoosicmqc6646 [place] [address]Dr. Anjali Reagan GRAM POSITIVE COCCI Normal [facility] Comment on above: Performed By: #### G STAIN ####[facility] Ytwtcgsplq7695 [place] [address]Dr. Anjali Reagan GRAM STAIN SOURCE Right ankle joint Normal [facility] Comment on above: Performed By: #### G STAIN ####[facility] Pmwporbefc77[address] [place], [place] [address]Dr. Anjali Reagan GS_DIPTH Normal [facility] Comment on above: Performed By: #### G STAIN ####[facility] Dlekeopwpe[address] [place], [place] [address]Dr. Anjali Reagan WBC FEW Normal [facility] Comment on above: Performed By: #### G STAIN ####[facility] Oftlyluknm[address] [place], [place] [address]Dr. Anjali Reagan POINT OF CARE GLUCOSEon 01-31 Glucose [Mass/Vol] 196 mg/dL Critically high 74-106 [facility] Comment on above: Performed By: #### P OCGLUC ####[facility] Pukmwhcikh[address] [place], [place] [address]Dr. Anjali Reagan Glucose [Mass/Vol] 176 mg/dL Critically high 74-106 [facility] Comment on above: Performed By: #### P OCGLUC ####[facility] Jyvyxlwfym525[address] [place], [place] [address]Dr. Anjali Reagan PREALBUMINon 02-11-2021 Prealbumin [Mass/Vol] 17.8 mg/dL Normal 17.6-36.0 [facility] Comment on above: Performed By: #### P REALB, ALB ####[facility] Myhxipwmqo1267[address] [place], [place] [address]Dr. Anjali Reagan PROF 14(COMP METB)on 021 Albumin [Mass/Vol] 2.6 g/dL Critically low 3.5-5.0 [facility] Comment on above: Performed By: #### B MP, CMP ####[facility] Iyijaihada3[address] [place] [address]Dr. Anjali Reagan Albumin/Globulin [Mass ratio] 0.6 {ratio} Normal [facility] Comment on above: Performed By: #### B MP, CMP ####[facility] Uoimgijela13[address] [place], [place] [address]Dr. Anjali Reagan ALP [Catalytic activity/Vol] 104 U/L Normal 38-126 [facility] Comment on above: Performed By: #### B MP, CMP ####[facility] Mrebpbxbbw[address] [place], [place] [address]Dr. Anjali Reagan ALT [Catalytic activity/Vol] 17 U/L Critically low 21-72 [facility] Comment on above: Performed By: #### B MP, CMP ####[facility] Yfpibpofya1767[address] [place], [place] [address]Dr. Anjali Reagan AST [Catalytic activity/Vol] 26 U/L Normal 17-59 [facility] Comment on above: Performed By: #### B MP, CMP ####[facility] Uknxmgglza34[address] [place], [place] [address]Dr. Anjali Reagan Bilirubin [Mass/Vol] 0.5 mg/dL Normal 0.2-1.3 [facility] Comment on above: Performed By: #### B MP, CMP ####[facility] Wwewvkloju74[address] [place], [place] [address]Dr. Anjali Reagan Globulin (S) [Mass/Vol] 4.1 g/dL Normal [facility] Comment on above: Performed By: #### B MP, CMP ####[facility] Yqutltgxzh088[address] [place], [place] [address]Dr. Anjali Reagan Protein [Mass/Vol] 6.7 g/dL Normal 6.1-8.2 [facility] Comment on above: Performed By: #### B MP, CMP ####[facility] Dhgicfqbrf699[address] [place], [place] [address]Dr. Anjali Reagan PROF CHEM 8 (BAS METB)on Anion gap [Moles/Vol] 11.3 mmol/L Normal [facility] Comment on above: Performed By: #### B MP, CMP ####[facility] Etwfrlkcgc8091 [place] [phone]. Anjali Reagan Calcium [Mass/Vol] 9.0 mg/dL Normal 8.4-10.2 [facility] Comment on above: Performed By: #### B MP, CMP ####[facility] Juycdgixvd1025 [place] [phone]. Anjali Reagan Chloride [Moles/Vol] 101 mmol/L Normal 98-107 [facility] Comment on above: Performed By: #### B MP, CMP ####[facility] Xfozguyxit7603 [place] [phone]. Anjali Reagan CO2 [Moles/Vol] 28.0 mmol/L Normal 22.0-30.0 The [facility] Comment on above: Performed By: #### B MP, CMP ####[facility] Xdkpoaxiis54[address] [place], [place] [address]Dr. Anjali Reagan Creatinine [Mass/Vol] 1.23 mg/dL Normal 0.66-1.25 [facility] Comment on above: Performed By: #### B MP, CMP ####[facility] Nddqidaewe3309 [place] [address]Dr. Anjali Reagan EGFR-AF RWANDAN >60 Normal >=60 The [facility] Comment on above: Performed By: #### B MP, CMP ####[facility] Uemmspbvsv8190 [place] [address]Dr. Anjali Tez EGFR-NON AF RWANDAN 59 mL/min/1.73m2 Critically low >=60 [facility] Comment on above: Performed By: #### B MP, CMP ####[facility] Hioryzoquf6066 [place] [phone]. Anjali Reagan Glucose [Mass/Vol] 109 mg/dL Critically high 74-106 [facility] Comment on above: Performed By: #### B MP, CMP ####[facility] Yucfetweht2446 [place] [address]Dr. Anjali Reagan Potassium [Moles/Vol] 3.9 mmol/L Normal 3.4-5.0 [facility] Comment on above: Performed By: #### B MP, CMP ####[facility] Xejszpwczx5918 [place] [address]Dr. Anjali Reagan Sodium [Moles/Vol] 136 mmol/L Critically low 137-145 [facility] Comment on above: Performed By: #### B MP, CMP ####[facility] Gxtluqzntw9042 [place] [address]Dr. Anjali Reagan Urea nitrogen [Mass/Vol] 32.0 mg/dL Critically high 9.0-20 .0 [facility] Comment on above: Performed By: #### B MP, CMP ####[facility] Gdpwwkgsdz454[address] [place], [place] [address]Dr. Anjali Reagan Urea nitrogen/Creatinine [Mass ratio] 26.0 mg/mg Normal [facility] Comment on above: Performed By: #### B MP, CMP ####[facility] Xngzjafjyk[address] [place], [place] [address]Dr. Anjali Reagan VANCOMYCIN TROUGHon 02-12-20 21 VANCOMYCIN TROUGH 9.8 ug/ml Normal 5.0-20.0 [facility] Comment on above: Performed By: #### V ANCT ####[facility] Wunicamrfb[address] [place], [place] [address]Dr. Anjali Reagan XR ANKLE RT 2Von 02-11-2021 XR ANKLE RT 2V Normal [facility] XR FOOT RT MIN 3 VIEWSon XR FOOT RT MIN 3 VIEWS Normal [facility] CBC AUTO DIFFon 02-10-2021 BASO # 0.0 103/ul Normal 0.0-0.1 [facility] Comment on above: Performed By: #### C BC ####[facility] Tjkjqlxizf1932[address] [place], [place] [address]Dr. Anjali Reagan Basophils/100 WBC (Bld) 0.3 % Normal 0.2-2.0 [facility] Comment on above: Performed By: #### C BC ####[facility] Wzdxwqicup9[address] [place], [place] [address]Dr. Anjali Reagan EO # 0.2 103/ul Normal 0.0-0.7 [facility] Comment on above: Performed By: #### C BC ####[facility] Zadiiwqwpr5011 [place] [address]Dr. Anjali Reagan Eosinophils/100 WBC (Bld) 2.7 % Normal 0.9-7.0 [facility] Comment on above: Performed By: #### C BC ####[facility] Oslnssgkic[address] [place], [place] [address]Dr. Anjali Reagan Erythrocyte distribution width (RBC) [Ratio] 18.8 % Critically high 11.0-15.0 [facility] Comment on above: Performed By: #### C BC ####[facility] Ixlebhkmkp747[address] [place], [place] [address]Dr. Biancaramona Reagan Hematocrit (Bld) [Volume fraction] 31.6 % Critically low 42.0-54.0 [facility] Comment on above: Performed By: #### C BC ####[facility] Chyaytyass8[address] [place], [place] [address]Dr. Anjali Reagan Hemoglobin (Bld) [Mass/Vol] 9.6 g/dL Critically low 14.0-18.0 [facility] Comment on above: Performed By: #### C BC ####[facility] Kxxeygpnlc64[address] [place], [place] [address]Dr. Biancaramona Tez IG # 0.04 10e3/ul Critically high 0.00-0.03 [facility] Comment on above: Performed By: #### C BC ####[facility] Syulfhebns87[address] [place], [place] [address]Dr. Biancaramona Tez IG % 0.6 % Critically high 0.0-0.5 [facility] Comment on above: Performed By: #### C BC ####[facility] Wwhhrbstdw[address] [place], [place] [address]Dr. Anjali Reagan LYMPH # 0.9 103/ul Critically low 1.2-3.8 [facility] Comment on above: Performed By: #### C BC ####[facility] Hfrrkymwyo6340[address] [place], [place] [address]DrVeronica Reagan Lymphocytes/100 WBC (Bld) 12.2 % Critically low 20.5-60.0 [facility] Comment on above: Performed By: #### C BC ####[facility] Wsoazvbfch1325 [place] [address]DrVeronica Reagan MANUAL DIFF REQ NO Normal [facility] Comment on above: Performed By: #### C BC ####[facility] Iiyzokmmag3749 [place] [address]DrVeronica Reagan MCH (RBC) [Entitic mass] 24.7 pg Critically low 25.9-34 .0 [facility] Comment on above: Performed By: #### C BC ####[facility] Swvbjwljci620[address] [place], [place] [address]DrVeronica Reagan MCHC (RBC) [Mass/Vol] 30.4 g/dL Normal 29.9-35.2 [facility] Comment on above: Performed By: #### C BC ####[facility] Mbumoewytq4432[address] [place], [place] [address]DrVeronica Reagan MCV (RBC) [Entitic vol] 81.4 fL Normal 80.0-94.0 [facility] Comment on above: Performed By: #### C BC ####[facility] Vdtesiossl[address] [place], [place] [address]DrVeronica Reagan MONO # 0.7 103/ul Normal 0.3-0.8 [facility] Comment on above: Performed By: #### C BC ####[facility] Ascbkvvvfa137[address] [place], [place] [address]DrVeronica Reagan Monocytes/100 WBC (Bld) 9.9 % Normal 1.7-12.0 [facility] Comment on above: Performed By: #### C BC ####[facility] Vscxrmlmzv[address] [place], [place] [address]DrVeronica Reagan NEUT # 5.3 103/ul Normal 1.4-6.5 [facility] Comment on above: Performed By: #### C BC ####[facility] Mlyemidzfj405[address] [place], [place] [address]DrVeronica Reagan Neutrophils/100 WBC (Bld) 74.3 % Normal 43.0-75.0 [facility] Comment on above: Performed By: #### C BC ####[facility] Zahqmeakuo5627 [place] [address]Dr. Anjali Reagan Platelet mean volume (Bld) [Entitic vol] 9.6 fL Normal 9.5-13.5 [facility] Comment on above: Performed By: #### C BC ####[facility] Xcdvikyacx2833 [place] [address]Dr. Anjali Reagan PLT 218 103/ul Normal 150-450 [facility] Comment on above: Performed By: #### C BC ####[facility] Xkkqtzqbmg7159 [place] [address]Dr. Anjali Reagan RBC 3.88 106/ul Critically low 4.70-6.10 [facility] Comment on above: Performed By: #### C BC ####[facility] Clqlaeqrmz8544 [place] [address]Dr. Anjali Reagan WBC 7.1 103/ul Normal 4.0-11.0 [facility] Comment on above: Performed By: #### C BC ####[facility] Pclpiibabu[address] [place], [place] [address]DrVeronica Reagan POINT OF CARE GLUCOSEon 11 Glucose [Mass/Vol] 219 mg/dL Critically high 74-106 [facility] Comment on above: Performed By: #### P OCGLUC ####[facility] Hvfwtlmkto7359 [place] [address]DrVeronica Reagan Glucose [Mass/Vol] 136 mg/dL Critically high 74-106 [facility] Comment on above: Performed By: #### P OCGLUC ####[facility] Yqqtqddaoc66[address] [place], [place] [address]DrVeronica Reagan Glucose [Mass/Vol] 119 mg/dL Critically high 74-106 [facility] Comment on above: Performed By: #### P OCGLUC ####[facility] Ocseizbwzt98[address] [place], [place] [address]DrVeronica Reagan PROF 14(COMP METB)on 021 Albumin [Mass/Vol] 2.8 g/dL Critically low 3.5-5.0 [facility] Comment on above: Performed By: #### C ALEA, BMP ####[facility] Ategynwffs5876 [place], [place] [address]Sm. Anjali Reagan Albumin/Globulin [Mass ratio] 0.7 {ratio} Normal [facility] Comment on above: Performed By: #### C ALEA, BMP ####[facility] Vlvpsmkmtq0994 [place] [phone]. Biancaramona Reagan ALP [Catalytic activity/Vol] 109 U/L Normal 38-126 [facility] Comment on above: Performed By: #### C ALEA, BMP ####[facility] Oalkqyiylh6029 [place] [phone]. Anjali Reagan ALT [Catalytic activity/Vol] 23 U/L Normal 21-72 [facility] Comment on above: Performed By: #### C ALEA, BMP ####[facility] Kyeauptgfb2927 [place] [phone]. Anjali Tez AST [Catalytic activity/Vol] 24 U/L Normal 17-59 [facility] Comment on above: Performed By: #### C ALEA, BMP ####[facility] Fvxibcrevj9134 [place] [phone]. Anjali Reagan Bilirubin [Mass/Vol] 0.4 mg/dL Normal 0.2-1.3 [facility] Comment on above: Performed By: #### C ALEA, BMP ####[facility] Zczrdyolrp7280 [place] [phone]. Anjali Reagan Globulin (S) [Mass/Vol] 4.1 g/dL Normal [facility] Comment on above: Performed By: #### C ALEA, BMP ####[facility] Vgdxjjenth4815 [place] [phone]. Anjali Reagan Protein [Mass/Vol] 6.9 g/dL Normal 6.1-8.2 [facility] Comment on above: Performed By: #### Uzair COSBY, BMP ####[facility] Klpessnmzj5006 [place] [address]Dr. Anjali Reagan PROF CHEM 8 (BAS METB)on Anion gap [Moles/Vol] 13.0 mmol/L Normal [facility] Comment on above: Performed By: #### C MP, BMP ####[facility] Rbyshuktmg4236 [place] [address]Dr. Anjali Reagan Calcium [Mass/Vol] 9.4 mg/dL Normal 8.4-10.2 [facility] Comment on above: Performed By: #### C MP, BMP ####[facility] Unnenoyvkc704[address] [place], [place] [address]Dr. Anjali Reagan Chloride [Moles/Vol] 104 mmol/L Normal 98-107 [facility] Comment on above: Performed By: #### C MP, BMP ####[facility] Wzqvnpixjs[address] [place], [place] [address]Dr. Anjali Reagan CO2 [Moles/Vol] 27.7 mmol/L Normal 22.0-30.0 [facility] Comment on above: Performed By: #### C MP, BMP ####[facility] Jydpqxwyql100[address] [place], [place] [address]Dr. Anjali Reagan Creatinine [Mass/Vol] 1.19 mg/dL Normal 0.66-1.25 [facility] Comment on above: Performed By: #### C MP, BMP ####[facility] Ipbjylnjqx09[address] [place], [place] [address]Dr. Anjali Reagan EGFR-AF RWANDAN >60 Normal >=60 [facility] Comment on above: Performed By: #### C MP, BMP ####[facility] Qzxwoxyznt346[address] [place], [place] [address]Dr. Anjali Reagan EGFR-NON AF RWANDAN >60 Normal >=60 [facility] Comment on above: Performed By: #### C MP, BMP ####[facility] Kznpgokgml3310[address] [place], [place] [address]Dr. Anjali Reagan Glucose [Mass/Vol] 81 mg/dL Normal 74-106 [facility] Comment on above: Performed By: #### C MP, BMP ####[facility] Bhkwogvtdn7860 [place] [address]Dr. Anjali Reagan Potassium [Moles/Vol] 4.1 mmol/L Normal 3.4-5.0 [facility] Comment on above: Performed By: #### C MP, BMP ####[facility] Qbujpwmcvu5352 [place] [address]Dr. Anjali Reagan Sodium [Moles/Vol] 141 mmol/L Normal 137-145 [facility] Comment on above: Performed By: #### C MP, BMP ####[facility] Ljszbxyqlv24[address] [place], [place] [address]Dr. Anjali Reagan Urea nitrogen [Mass/Vol] 41.0 mg/dL Critically high 9.0-20 .0 [facility] Comment on above: Performed By: #### C ALEA, BMP ####[facility] Phrpgqksdt44[address] [place], [place] [address]Dr. Anjali Reagan Urea nitrogen/Creatinine [Mass ratio] 34.4 mg/mg Normal [facility] Comment on above: Performed By: #### C ALEA, BMP ####[facility] Xqlswxbyfe03[address] [place], [place] [address]Dr. Anjali Reagan CBC W MANUAL DIFFon 02-10-20 21 ANISOCYTOSIS SLIGHT Normal [facility] Comment on above: Performed By: #### C SAUMYAMAN ####[facility] Wlozdurfhb[address] [place], [place] [address]Dr. Anjali Reagan ATYPICAL LYMPH # Normal [facility] Comment on above: Performed By: #### C CORI ####[facility] Lhkdwgkigl6285 [place] [address]Dr. Anjali Reagan ATYPICAL LYMPH % Normal [facility] Comment on above: Performed By: #### C BCMAN ####[facility] Oyugwwdlqn255[address] [place], [place] [address]Dr. Anjali Reagan BAND # Normal 0.0-0.3 [facility] Comment on above: Performed By: #### C CORI ####[facility] Hpfsbwlieh[address] [place], [place] [address]Dr. Anjali Reagan BAND % Normal 0-5 [facility] Comment on above: Performed By: #### C BCFIONA ####[facility] Eyinahkbjd1793 [place] [address]Dr. Anjali Reagan BASOM # 0.00 103/ul Normal 0.00-0.10 [facility] Comment on above: Performed By: #### C BCFIONA ####[facility] Cljjrhkrjs6822 [place] [address]Dr. Anjali Reagan BASOM % 0.0 % Critically low 0.2-2.0 [facility] Comment on above: Performed By: #### C BCFIONA ####[facility] Ibvjkonupo9212 [place] [address]Dr. Anjali Reagan BLAST # Normal [facility] Comment on above: Performed By: #### C CORI ####[facility] Nzavnzirlq[address] [place], [place] [address]Dr. Anjali Reagan BLAST % Normal [facility] Comment on above: Performed By: #### C BCFIONA ####[facility] Kzgruzorie32[address] [place] [address]Dr. Anjali Reagan CORRECTED WBC Normal 4.0-11.0 [facility] Comment on above: Performed By: #### C BCFIONA ####[facility] Vvrlijyett33[address] [place] [address]Dr. Anjali Reagan EOS # 0.00 103/ul Normal 0.00-0.70 [facility] Comment on above: Performed By: #### C BCFIONA ####[facility] Mknavznplq3246 [place] [address]Dr. Anjali Reagan EOS% 0.0 % Critically low 0.9-7.0 [facility] Comment on above: Performed By: #### C CORI ####[facility] [facility] [address] [place], [place] [address]Dr. Anjali Reagan HCT 31.1 % Critically low 42.0-54.0 [facility] Comment on above: Performed By: #### C BCFIONA ####[facility] Gslsukfzhe1411 [place], [place] [address]Ok. Anjali Reagan HGB 9.6 g/dl Critically low 14.0-18.0 [facility] Comment on above: Performed By: #### Uzair PERSAUD ####[facility] Isncghnnbd3831 [place], [place] [address]Hz. Anjali Reagan LYMPHM # 0.73 103/ul Critically low 1.20-3.80 [facility] Comment on above: Performed By: #### Uzair PERSAUD ####[facility] Zjshnlcrjn2732 [place] [phone]. Anjali Reagan LYMPHM% 7.0 % Critically low 20.5-60.0 [facility] Comment on above: Performed By: #### Uzair PERSAUD ####[facility] Vmtfmztjox0208 [place] [phone]. Anjali Reagan MCH 25.1 pg Critically low 25.9-34.0 [facility] Comment on above: Performed By: #### Uzair PERSAUD ####[facility] Ipdyaahgsc1952 [place] [phone]. Anjali Reagan MCHC 30.9 g/dl Normal 29.9-35.2 [facility] Comment on above: Performed By: #### Uzair PERSAUD ####[facility] Cfqcgnxyhs8278 [place] [phone]. Anjali Reagan MCV 81.4 fL Normal 80.0-94.0 [facility] Comment on above: Performed By: #### Uzair PERSAUD ####[facility] Thqvaqvuac3089 [place] [phone]. Anjali Reagan METAMYELOCYTE # Normal [facility] Comment on above: Performed By: #### Uzair PERSAUD ####[facility] Pkvirvxlaf3873 [place] [phone]. Anjali Reagan METAMYELOCYTE % Normal [facility] Comment on above: Performed By: #### Uzair PERSAUD ####[facility] Ikgkrbjydg0867 [place] [phone]. Anjali Reagan MONOM# 0.31 103/ul Normal 0.30-0.80 [facility] Comment on above: Performed By: #### C CORI ####[facility] Oshhpnvdit3348 [place] [phone]. Anjali Reagan MONOM% 3.0 % Normal 1.7-12.0 [facility] Comment on above: Performed By: #### C CORI ####[facility] Axzuhbkucb6277 [place] [phone]. Anjali Reagan MPV 9.9 fL Normal 9.5-13.5 [facility] Comment on above: Performed By: #### C CORI ####[facility] Hqialovbhi4688 [place] [phone]. Anjali Reagan MYELOCYTE # Normal [facility] Comment on above: Performed By: #### C CORI ####[facility] Hduckyrixx0099 [place] [address]Dr. Anjali Reagan MYELOCYTE % Normal [facility] Comment on above: Performed By: #### C CORI ####[facility] Gvrozimhcp7329 [place] [address]Dr. Anjali Reagan NRBC Normal [facility] Comment on above: Performed By: #### C CORI ####[facility] Xuewmqhicc[address] [place], [place] [address]Dr. Anjali Reagan OVALOCYTES SLIGHT Normal [facility] Comment on above: Performed By: #### C CORI ####[facility] Zjicbgkzrd3971 [place] [phone]. Anjali Reagan PLT 211 103/ul Normal 150-450 [facility] Comment on above: Performed By: #### C CORI ####[facility] Smufjlehrt0347 [place] [phone]. Anjali Reagan POIKILOCYTOSIS SLIGHT Normal [facility] Comment on above: Performed By: #### C CORI ####[facility] Vjfoynnfpj7986 [place] [phone]. Anjali Reagan RBC 3.82 106/ul Critically low 4.70-6.10 [facility] Comment on above: Performed By: #### C CORI ####[facility] Dbunemmmhy8468 [place], [place] [address]Sm. Anjali Reagan RDW 18.4 % Critically high 11.0-15.0 [facility] Comment on above: Performed By: #### C CORI ####[facility] Iitekjjoyo8983 [place], [place] [address]Pn. Anjali Reagan SEG # 9.36 103/ul Critically high 1.40-6.50 [facility] Comment on above: Performed By: #### C CORI ####[facility] Davtaylwpn4313 [place], [place] [address]Dd. Anjali Reagan SEG % 90.0 % Critically high 43.0-75.0 [facility] Comment on above: Performed By: #### C CORI ####[facility] Ysidljuupu8639 [place] [phone]. Anjali Reagan WBC 10.4 103/ul Normal 4.0-11.0 [facility] Comment on above: Performed By: #### Uzair PERSAUD ####[facility] Ylczwslqtk6828 [place], [place] [address]Yx. Anjali Reagan HEP B SURFACE ANTIGEN SCREEN on 02-09-2021 HBsAg Screen Negative Normal Negative [facility] Comment on above: Performed By: #### H BIANCANS ####[facility] Tnoeckeikl0681 [place] [phone]. Anjali Reagan HEPATITIS C ANTIBODYon 02-09 Hep C Virus Ab <0.1 Normal 0.0-0.9 [facility] Comment on above: Result Comment: Nega tive: < 0.8 Indeterminate: 0.8 - 0.9 Positive: > 0.9 . The CDC recommends that a positive HCV antibody result be followed up with a HCV Nucleic Acid Amplification test (952630). Performed By: #### H CV ####[facility] Suirlohrij1749 [place] [phone]. Anjali Reagan HIV 1 AND 2 WITH REFLEXon HIV Screen 4th Generation wRfx Non-Reactive Normal Non Reactive [facility] Comment on above: Performed By: #### H IV12 ####[facility] Jxyfpwamsm3469 [place] [address]Dr. Anjali Reagan POINT OF CARE GLUCOSEon 01-31 Glucose [Mass/Vol] 170 mg/dL Critically high -106 [facility] Comment on above: Performed By: #### P OCGLUC ####[facility] Gfrznmvjrf0367 [place] [phone]. Anjali Reagan Glucose [Mass/Vol] 265 mg/dL Critically high -106 [facility] Comment on above: Performed By: #### P OCGLUC ####[facility] Qixvchcipa6253 [place] [address]Dr. Anjali Reagan Glucose [Mass/Vol] 319 mg/dL Critically high -106 [facility] Comment on above: Performed By: #### P OCGLUC ####[facility] Tenkicujqs1292 [place] [address]Dr. Anjali Reagan PROF 14(COMP METB)on 021 Albumin [Mass/Vol] 2.8 g/dL Critically low 3.5-5.0 [facility] Comment on above: Performed By: #### C MP ####[facility] Lwibmhtfab6420 [place] [address]Dr. Anjali Reagan Albumin/Globulin [Mass ratio] 0.7 {ratio} Normal [facility] Comment on above: Performed By: #### C MP ####[facility] Dtupynbqur0090 [place] [address]Dr. Anjali Reagan ALP [Catalytic activity/Vol] 117 U/L Normal 38-126 [facility] Comment on above: Performed By: #### C MP ####[facility] Hkijxnionf4499 [place] [address]Dr. Anjali Reagan ALT [Catalytic activity/Vol] 21 U/L Normal 21-72 [facility] Comment on above: Performed By: #### C MP ####[facility] Mqdpdvxfvr4016 [place] [address]Dr. Anjali Reagan Anion gap [Moles/Vol] 13.0 mmol/L Normal [facility] Comment on above: Performed By: #### C MP ####[facility] Ngjqrltpli9958 [place] [phone]. Anjali Reagan AST [Catalytic activity/Vol] 21 U/L Normal 17-59 [facility] Comment on above: Performed By: #### C MP ####[facility] Hyrkrdvchj1336 [place] [phone]. Anjali Reagan Bilirubin [Mass/Vol] 0.5 mg/dL Normal 0.2-1.3 [facility] Comment on above: Performed By: #### C MP ####[facility] Jsmdiaozwo2190 [place] [phone]. Anjali Reagan Calcium [Mass/Vol] 9.3 mg/dL Normal 8.4-10.2 [facility] Comment on above: Performed By: #### C MP ####[facility] Ufljxcmlhq[address] [place], [place] [address]Dr. Anjali Reagan Chloride [Moles/Vol] 100 mmol/L Normal 98-107 [facility] Comment on above: Performed By: #### C MP ####[facility] Rljkftgklj[address] [place], [place] [address]Dr. Anjali Reagan CO2 [Moles/Vol] 27.5 mmol/L Normal 22.0-30.0 The [facility] Comment on above: Performed By: #### C MP ####[facility] Bdjpvtvqmh2965 [place] [phone]. Anjali Reagan Creatinine [Mass/Vol] 1.49 mg/dL Critically high 0.66-1.25 [facility] Comment on above: Performed By: #### C MP ####[facility] Wvjvjbmcse7004 [place] [phone]. Anjali Reagan EGFR-AF RWANDAN 58 mL/min/1.73m2 Critically low >=60 [facility] Comment on above: Performed By: #### C MP ####[facility] Zyhpngeqec1177 [place] [phone]. Anjali Tez EGFR-NON AF RWANDAN 48 mL/min/1.73m2 Critically low >=60 [facility] Comment on above: Performed By: #### C MP ####[facility] Ytggwpphlf9847 [place] [address]Dr. Anjali Reagan Globulin (S) [Mass/Vol] 4.2 g/dL Normal [facility] Comment on above: Performed By: #### C MP ####[facility] Gplvhizqnu1643 [place] [phone]. Anjali Reagan Glucose [Mass/Vol] 276 mg/dL Critically high 74-106 [facility] Comment on above: Performed By: #### C MP ####[facility] Yfavtmlbmu2399 [place] [phone]. Anjali Reagan Potassium [Moles/Vol] 4.5 mmol/L Normal 3.4-5.0 [facility] Comment on above: Performed By: #### C MP ####[facility] Ryvydecbpg8390 [place] [address]Dr. Anjali Reagan Protein [Mass/Vol] 7.0 g/dL Normal 6.1-8.2 [facility] Comment on above: Performed By: #### C MP ####[facility] Cdslmyrgit7238 [place] [address]Dr. Anjali Reagan Sodium [Moles/Vol] 136 mmol/L Critically low 137-145 [facility] Comment on above: Performed By: #### C MP ####[facility] Egdmmcmnxw5838 [place] [address]Dr. Anjali Reagan Urea nitrogen [Mass/Vol] 42.0 mg/dL Critically high 9.0-20 .0 [facility] Comment on above: Performed By: #### C MP ####[facility] Unkmkzucpe3314 [place] [address]Dr. Anjali Reagan Urea nitrogen/Creatinine [Mass ratio] 28.2 mg/mg Normal [facility] Comment on above: Performed By: #### C MP ####[facility] Uuipnsoxqm1617 [place] [address]Dr. Anjali Tez RPR QUANTon 02-09-2021 Rapid Plasma Reagin, Quant Non-Reactive Normal NonRea<1:1 [facility] Comment on above: Performed By: #### R PRQ ####[facility] Zfyuefjais4105 [place] [address]Dr. Anjali Reagan XR ANKLE RT 2Von 02-09-2021 XR ANKLE RT 2V Normal [facility] XR TIB_FIB RT 2Von 1 XR TIB_FIB RT 2V Normal The [facility] CRPon 02-08-2021 CRP 3.2 mg/dL Critically high <=1.0 [facility] Comment on above: Performed By: #### C RP ####[facility] Phxvoehllj[address] [place], [place] [address]Dr. Biancaramona Reagan CULTURE ANAEROBICon 02-09-20 21 CULTURE ANAEROBIC Specimen Comments: RIGHT FOOT IRRIGATION SWAB Culture Observations: NO GROWTH AT 72 HRS Normal [facility] Comment on above: Performed By: #### A NACX ####[facility] Zpgcvvobir8[address] [place], [place] [address]Dr. Yilan Reagan CULTURE ANAEROBIC Specimen Comments: RIGHT LEG REAMINGS Culture Observations: NO GROWTH OF ANAEROBES AT 72 HOURS. Normal [facility] Comment on above: Performed By: #### A NACX ####[facility] Vpiykmieua422[address] [place], [place] [address]Dr. Yilan Reagan CULTURE ANAEROBIC Culture Observations : NO GROWTH AT 72 HRS Normal [facility] Comment on above: Performed By: #### A NACX ####[facility] Kegwooxhyc2858 [place] [phone]. Yilan Reagan CULTURE ANAEROBIC Specimen Comments: RIGHT TIBIA BONE Culture Observations: NO GROWTH AT 72 HRS Normal [facility] Comment on above: Performed By: #### A NACX ####[facility] Miieyzoxdo7393 [place] [phone]. Yilan Reagan CULTURE ANAEROBIC Specimen Comments: RIGHT CALCANEOUS BONE Culture Observations: NO GROWTH OF ANAEROBES AT 72 HOURS. Normal [facility] Comment on above: Performed By: #### A NACX ####[facility] Pcyoqjbrxq[address] [place], [place] [address]Dr. Yilan Reagan CULTURE ANAEROBIC Specimen Comments: RIGHT ANKLE ABSCESS Culture Observations: NO GROWTH AT 72 HRS Normal [facility] Comment on above: Performed By: #### A NACX ####[facility] Ugkmummcaa[address] [place], [place] [address]Dr. Anjali Reagan CULTURE OTHERon 02-08-2021 CULTURE OTHER Specimen Comments: RIGHT LEG REAMINGS Culture Observations: NORMAL SKIN ARELI. Normal [facility] Comment on above: Performed By: #### O THCX ####[facility] Wnhjovobgf[address] [place], [place] [address]Dr. Yilan Reagan CULTURE OTHER Specimen Comments: RIGHT FOOT IRRIGATION SWAB Culture Observations: NO GROWTH AT 72 HRS [facility] Comment on above: Performed By: #### O THCX ####[facility] Krbyrwlquh[address] [place], [place] [address]Dr. Yilan Reagan CULTURE OTHER Specimen Comments: RIGHT CALCANEOUS BONE Culture Observations: NORMAL SKIN ARELI. Normal [facility] Comment on above: Performed By: #### O THCX ####[facility] Btwytnwehv[address] [place], [place] [address]Dr. Yilan Reagan CULTURE OTHER Specimen Comments: RIGHT TIBIA BONE Culture Observations: NO GROWTH AT 72 HRS [facility] Comment on above: Performed By: #### O THCX ####[facility] Urxebskydm[address] [place], [place] [address]Dr. Yiramona Reagan CULTURE OTHER Specimen Comments: RIGHT TALUS BONE Culture Observations: NORMAL SKIN ARELI. Normal [facility] Comment on above: Performed By: #### O THCX ####[facility] Lxrwbmanxd254[address] [place], [place] [address]Dr. Yilan Reagan CULTURE OTHER Specimen Comments: RIGHT ANKLE ABSCESS Culture Observations: NO GROWTH AT 72 HRS [facility] Comment on above: Performed By: #### O THCX ####[facility] Ncomenhtff78[address] [place], [place] [address]Dr. Anjali Reagan GRAM STAINon 02-08-2021 COMMENTS NO ORGANISMS OBSERVED [facility] Comment on above: Performed By: #### G STAIN ####[facility] Gdryfctaom[address] [place], [place] [address]Dr. Yilan Reagan DIPHTHEROIDS Normal [facility] Comment on above: Performed By: #### G STAIN ####[facility] Mlaktcvlug1791 [place] [address]Dr. Anjali Reagan EPITHELIALS Normal [facility] Comment on above: Performed By: #### G STAIN ####[facility] Nghhebbzum0607 [place] [address]Dr. Anjali Reagan FUNGAL ELEMENTS Normal [facility] Comment on above: Performed By: #### G STAIN ####[facility] Lqsrgbwqum8175 [place] [address]Dr. Anjali Reagan GRAM NEG BACILLI Normal The [facility] Comment on above: Performed By: #### G STAIN ####[facility] Fculktgjkb[address] [place], [place] [address]Dr. Anjali Reagan GRAM NEG DIPPLOCOCCI Normal [facility] Comment on above: Performed By: #### G STAIN ####[facility] Pmveqbttej620[address] [place], [place] [address]Dr. Anjali Reagan GRAM POS BACILLI Normal The [facility] Comment on above: Performed By: #### G STAIN ####[facility] Awmjttaszy[address] [place], [place] [address]Dr. Anjali Reagan GRAM POSITIVE COCCI Normal The [facility] Comment on above: Performed By: #### G STAIN ####[facility] Tkaqjkvkli42[address] [place], [place] [address]Dr. Anjali Reagan GRAM STAIN SOURCE RIGHT LEG REAMINGS Normal [facility] Comment on above: Performed By: #### G STAIN ####[facility] Kbtmlurlfc3015 [place] [address]Dr. Anjali Reagan GRAM STAIN SOURCE RIGHT FOOT POST IRRIGATION SWAB Normal [facility] Comment on above: Performed By: #### G STAIN ####[facility] Ffawlgbqat[address] [place], [place] [address]Dr. Anjali Reagan GS_DIPTH Normal [facility] Comment on above: Performed By: #### G STAIN ####[facility] Qghvjkfywp[address] [place], [place] [address]Dr. Anjali Reagan WBC MODERATE Normal [facility] Comment on above: Performed By: #### G STAIN ####[facility] Clojkihlwe3274 [place] [phone]. Anjali Reagan WBC NONE SEEN Normal [facility] Comment on above: Performed By: #### G STAIN ####[facility] Obxzanirhd0064 [place] [phone]. Anjali Reagan COMMENTS NO ORGANISMS OBSERVED Normal [facility] Comment on above: Performed By: #### G STAIN ####[facility] Dieqjftksn3363 [place] [address]Dr. Anjali Reagan DIPHTHEROIDS Normal [facility] Comment on above: Performed By: #### G STAIN ####[facility] Arypnylgvo[address] [place], [place] [address]Dr. Anjali Reagan EPITHELIALS Normal [facility] Comment on above: Performed By: #### G STAIN ####[facility] Pfsnbqjylt[address] [place], [place] [address]Dr. Anjali Reagan FUNGAL ELEMENTS Normal [facility] Comment on above: Performed By: #### G STAIN ####[facility] Icgnbpnlmk0772 [place] [address]Dr. Anjali Reagan GRAM NEG BACILLI Normal The [facility] Comment on above: Performed By: #### G STAIN ####[facility] Mfudgvwgyz7807 [place] [address]Dr. Anjali Reagan GRAM NEG DIPPLOCOCCI Normal [facility] Comment on above: Performed By: #### G STAIN ####[facility] Gkivhrbawm2726 [place] [address]Dr. Anjali Reagan GRAM POS BACILLI Normal The [facility] Comment on above: Performed By: #### G STAIN ####[facility] Klyidgdhdp0643 [place] [address]Dr. Anjali Reagan GRAM POSITIVE COCCI Normal [facility] Comment on above: Performed By: #### G STAIN ####[facility] Tudhawdquo2001 [place] [address]Dr. Anjali Reagan GRAM STAIN SOURCE RIGHT TIBIA BONE Normal [facility] Comment on above: Performed By: #### G STAIN ####[facility] Uefmkdokam6724 [place] [phone]. Anjali Reagan GRAM STAIN SOURCE RIGHT CALCANEOUS BONE Normal [facility] Comment on above: Performed By: #### G STAIN ####[facility] Evdvlbueho2707 [place] [address]Dr. Anjali Reagan GRAM STAIN SOURCE RIGHT TALUS BONE Normal [facility] Comment on above: Performed By: #### G STAIN ####[facility] Ijrtzmbvwn5679 [place] [address]Dr. Anjali Reagan GS_DIPTH Normal [facility] Comment on above: Performed By: #### G STAIN ####[facility] Kckkpylnot7308 [place] [address]Dr. Anjali Reagan WBC NONE SEEN Normal [facility] Comment on above: Performed By: #### G STAIN ####[facility] Ptrshvbutm2673 [place] [address]Dr. Anjali Reagan WBC FEW Normal [facility] Comment on above: Performed By: #### G STAIN ####[facility] Gnlqbujeab0998 [place] [address]Dr. Anjali Reagan COMMENTS NO ORGANISMS OBSERVED Normal [facility] Comment on above: Performed By: #### G STAIN ####[facility] Ueztbpifvb4998 [place] [address]Dr. Anjali Reagan DIPHTHEROIDS Normal [facility] Comment on above: Performed By: #### G STAIN ####[facility] Bzvyoetjsf8300 [place] [address]Dr. Anjali Reagan EPITHELIALS Normal [facility] Comment on above: Performed By: #### G STAIN ####[facility] Uhpoyvyjbn1855 [place] [address]Dr. Anjali Reagan FUNGAL ELEMENTS Normal [facility] Comment on above: Performed By: #### G STAIN ####[facility] Hfrbjbbpst5234 [place] [address]Dr. Anjali Reagan GRAM NEG BACILLI Normal The [facility] Comment on above: Performed By: #### G STAIN ####[facility] Lihcfnwtne0018 [place] [phone]. Anjali Reagan GRAM NEG DIPPLOCOCCI Normal [facility] Comment on above: Performed By: #### G STAIN ####[facility] Zbebgfokyg7035 [place] [phone]. Anjali Reagan GRAM POS BACILLI Normal The [facility] Comment on above: Performed By: #### G STAIN ####[facility] Oqkerepixv1805 [place] [phone]. Anjali Reagan GRAM POSITIVE COCCI Normal [facility] Comment on above: Performed By: #### G STAIN ####[facility] Oxoepuoxqq[address] [place], [place] [address]Dr. Anjali Reagan GRAM STAIN SOURCE RIGHT FOOT ABSCESS SWAB Normal [facility] Comment on above: Performed By: #### G STAIN ####[facility] Sfcvwppavr[address] [place], [place] [address]Dr. Anjali Reagan GS_DIPTH Normal [facility] Comment on above: Performed By: #### G STAIN ####[facility] Ntmoqxwwux[address] [place], [place] [address]Dr. Anjali Reagan WBC RARE Normal [facility] Comment on above: Performed By: #### G STAIN ####[facility] Wgshtpswfq66[address] [place], [place] [address]Dr. Anjali Reagan HIV 1/2 RAPID (EXPOSURE ONLY )on 02-08-2021 HIV AB Negative [facility] Comment on above: Performed By: #### R PDHIV ####[facility] Rhpnrejopa[address] [place], [place] [address]Dr. Anjali Reagan HIV AG Negative Normal [facility] Comment on above: Performed By: #### R PDHIV ####[facility] Vsymryopdw613[address] [place], [place] [address]Dr. Anjali Reagan INTERNAL CONTROLS Within Normal Limits Normal Wi thin Normal Limits [facility] Comment on above: Performed By: #### R PDHIV ####[facility] Ziibxnelnz34[address] [place], [place] [address]Dr. Anjali Reagan RAPID HIV INFO SEE BELOW Normal [facility] Comment on above: Result Comment: This test is used for the initial screening of the exposure source. Confirmation of all results will be obtained through reference lab testing. Performed By: #### R PDHIV ####[facility] Splmyjzrcb18[address] [place], [place] [address]Dr. Anjali Reagan POINT OF CARE GLUCOSEon 11-0 Glucose [Mass/Vol] 400 mg/dL Critically high 74-106 [facility] Comment on above: Performed By: #### P OCGLUC ####[facility] Lpmuwsejyj[address] [place], [place] [address]Dr. Anjali Reagan Glucose [Mass/Vol] 373 mg/dL Critically high -106 [facility] Comment on above: Performed By: #### P OCGLUC ####[facility] Qdcbutrhxv24[address] [place], [place] [address]Dr. Anjali Reagan Glucose [Mass/Vol] 159 mg/dL Critically high -106 [facility] Comment on above: Performed By: #### P OCGLUC ####[facility] Vdefppushm156[address] [place], [place] [address]Dr. Anjali Reagan Glucose [Mass/Vol] 160 mg/dL Critically high -106 [facility] Comment on above: Performed By: #### P OCGLUC ####[facility] Ynjhprrtix[address] [place], [place] [address]Dr. Anjali Reagan SED RATE WESTERGRENon 2020 SED RATE 51 mm/hr Critically high <=20 [facility] Comment on above: Performed By: #### S EDR ####[facility] Mipvicvunf[address] [place], [place] [address]Dr. Anjali Reagan CBC W MANUAL DIFFon 02-06-20 21 ATYPICAL LYMPH # Normal The [facility] Comment on above: Performed By: #### C BCMAN ####[facility] Yytfbyhyzk[address] [place], [place] [address]Dr. Anjali Tez ATYPICAL LYMPH % Normal The [facility] Comment on above: Performed By: #### C BCMAN ####[facility] Bgdofxmkir34[address] [place], [place] [address]Dr. Anjali Reagan BAND # 0.2 103/ul Normal 0.0-0.3 [facility] Comment on above: Performed By: #### C BCMAN ####[facility] Uzivatccnd4352 [place] [address]Dr. Anjali Reagan BAND % 3 % Normal 0-5 [facility] Comment on above: Performed By: #### C BCMAN ####[facility] Rsxihbkquk1389 [place] [phone]. Anjali Reagan BASOM # 0.07 103/ul Normal 0.00-0.10 [facility] Comment on above: Performed By: #### C BCFIONA ####[facility] Nqxgdhekjt[address] [place] [address]Dr. Anjali Reagan BASOM % 1.0 % Normal 0.2-2.0 [facility] Comment on above: Performed By: #### C CORI ####[facility] Pyzsuswfhc6[address] [place] [address]Dr. Anjali Reagan BLAST # Normal [facility] Comment on above: Performed By: #### C CORI ####[facility] Xylnvmvkvv3415 [place] [address]Dr. Anjali Reagan BLAST % Normal [facility] Comment on above: Performed By: #### C BCFIONA ####[facility] Wqprzlzvay6681 [place] [id number]. Anjali Reagan CORRECTED WBC Normal 4.0-11.0 [facility] Comment on above: Performed By: #### C BCFIONA ####[facility] Nymrcafszf5138 [place] [id number]. Anjali Reagan EOS # 0.57 103/ul Normal 0.00-0.70 [facility] Comment on above: Performed By: #### C BCFIONA ####[facility] Nrnwsuvvxh1442 [place] [address]Dr. Anjali Reagan EOS% 8.0 % Critically high 0.9-7.0 The [facility] Comment on above: Performed By: #### C CORI ####[facility] Tqxsxwn[address] [place], [place] [address]Dr. Anjali Reagan HCT 32.9 % Critically low 42.0-54.0 [facility] Comment on above: Performed By: #### C CORI ####[facility] Xuefspzgax2026 [place] [id number]. Anjali Reagan HGB 10.2 g/dl Critically low 14.0-18.0 [facility] Comment on above: Performed By: #### C CORI ####[facility] Xvwfbpvsbt6121 [place] [id number]. Anjali Reagan LYMPHM # 0.78 103/ul Critically low 1.20-3.80 [facility] Comment on above: Performed By: #### C CORI ####[facility] Jobqztfkfc[address] [place], [place] [address]Dr. Anjali Reagan LYMPHM% 11.0 % Critically low 20.5-60.0 [facility] Comment on above: Performed By: #### C CORI ####[facility] Kopsdapikl[address] [place], [place] [address]Dr. Anjali Reagan MCH 24.9 pg Critically low 25.9-34.0 [facility] Comment on above: Performed By: #### Uzair PERSAUD ####[facility] Yhdzgxlosk54[address] [place], [place] [address]Dr. Anjali Reagan MCHC 31.0 g/dl Normal 29.9-35.2 [facility] Comment on above: Performed By: #### Uzair PERSAUD ####[facility] Oirlqubuue[address] [place], [place] [id number]. Anjali Reagan MCV 80.4 fL Normal 80.0-94.0 [facility] Comment on above: Performed By: #### C CORI ####[facility] Bpgwxrmppd[address] [place], [place] [id number]. Anjali Reagan METAMYELOCYTE # Normal [facility] Comment on above: Performed By: #### C CORI ####[facility] Dvaspwqtbx43[address] [place], [place] [address]Dr. Anjali Reagan METAMYELOCYTE % Normal [facility] Comment on above: Performed By: #### C CORI ####[facility] Xlyhfdyrdg6072 [place] [phone]. Anjali Reagan MONOM# 0.57 103/ul Normal 0.30-0.80 [facility] Comment on above: Performed By: #### C CORI ####[facility] Cyvzaqnoxh1732 [place] [phone]. Anjali Reagan MONOM% 8.0 % Normal 1.7-12.0 [facility] Comment on above: Performed By: #### C CORI ####[facility] Oyginetkin9464 [place] [phone]. Anjali Reagan MPV 9.2 fL Critically low 9.5-13.5 [facility] Comment on above: Performed By: #### Uzair PERSAUD ####[facility] Ykajupdvsi[address] [place], [place] [address]Dr. Anjali Reagan MYELOCYTE # Normal [facility] Comment on above: Performed By: #### Uzair PERSAUD ####[facility] Bogosotbnt[address] [place], [place] [address]Dr. Anjali Reagan MYELOCYTE % Normal [facility] Comment on above: Performed By: #### Uzair PERSAUD ####[facility] Lhtlwjoijk[address] [place], [place] [address]Dr. Anjali Reagan NRBC Normal [facility] Comment on above: Performed By: #### Uzair PERSAUD ####[facility] Qbkyteckvg4954 [place] [address]Dr. Anjali Reagan OVALOCYTES 1+ Normal [facility] Comment on above: Performed By: #### C CORI ####[facility] Diottytpso318[address] [place], [place] [address]Dr. Anjali Reagan PLT 209 103/ul Normal 150-450 [facility] Comment on above: Performed By: #### C CORI ####[facility] Xfhmwpsxbl39[address] [place], [place] [id number]. Anjali Reagan RBC 4.09 106/ul Critically low 4.70-6.10 [facility] Comment on above: Performed By: #### C CORI ####[facility] Rejunfvbml3448 [place], [place] [address]Al. Anjali Reagan RDW 18.2 % Critically high 11.0-15.0 [facility] Comment on above: Performed By: #### C CORI ####[facility] Aiqbwxzvrb0120 [place], [place] [address]Fg. Anjali Reagan SEG # 4.90 103/ul Normal 1.40-6.50 [facility] Comment on above: Performed By: #### C CORI ####[facility] Eztbkgevwh2122 [place], [place] [address]It. Anjali Reagan SEG % 69.0 % Normal 43.0-75.0 [facility] Comment on above: Performed By: #### C CORI ####[facility] Xdigtdxsqn3355 [place], [place] [address]Kf. Anjali Reagan WBC 7.1 103/ul Normal 4.0-11.0 [facility] Comment on above: Performed By: #### Uzair PERSAUD ####[facility] Rewadyxuzv7942 [place], [place] [address]Bg. Anjali Reagan CT ABD/PELVIS WO CONon 02-05 CT ABD/PELVIS WO CON Normal [facility] Covid-19 PCR ([facility])on SARS-CoV-2 (COVID-19) RNA MEREDITH+probe Ql (Unsp spec) Not detected Normal NOT DETECTED [facility] Comment on above: Result Comment: This test is not yet approved or cleared by the [place] FDA. When there are no FDA-approved or cleared tests available, and other criteria are met, FDA can make tests available under an emergency access mechanism called an Emergency Use Authorization (EUA). The EUA for this test is supported by the [employer] of Health and Human Service's (HHS's) declaration [...] symptomsconsistent with SARS-CoV-2. Performed By: #### C [facility] ####[facility] Hngtuhnoht[address] [place], [place] [address]Dr. Anjali Reagan ER URINE PROFILEon 1 Bilirubin Ql (U) Negative Normal NEGATIVE The [facility] Comment on above: Performed By: #### E RUR ####[facility] Cjrsqoudjs[address] [place], [place] [address]Dr. Biancalan Reagan Clarity (U) CLEAR Normal CLEAR [facility] Comment on above: Performed By: #### E RUR ####[facility] Yxacykiywj[address] [place], [place] [address]Dr. Yilan Reagan Color (U) LT. YELLOW Normal YELLOW [facility] Comment on above: Performed By: #### E RUR ####[facility] Dsagutwgkj96[address] [place], [place] [address]Dr. Anjali Reagan ERUAHD A micrscopic examination will be performed if indicated. Normal [facility] Comment on above: Performed By: #### E RUR ####[facility] Vpvrwwzdnk06[address] [place], [place] [address]Dr. Yilan Reagan Glucose Ql (U) Negative Normal NEGATIVE [facility] [place] [facility] Comment on above: Performed By: #### E RUR ####[facility] Blpxpxgjol9[address] [place], [place] [address]Dr. Yilan Reagan Hemoglobin Ql (U) Negative Normal NEGATIVE [facility] Comment on above: Performed By: #### E RUR ####[facility] Qamwmsoejv5590[address] [place], [place] [address]Dr. Yilan Reagan Ketones Ql (U) Negative Normal NEGATIVE [facility] [place] [facility] Comment on above: Performed By: #### E RUR ####[facility] Haxwxfxtqm49[address] [place], [place] [address]Dr. Yilan Reagan LEUKOCYTES Negative Normal NEGATIVE [facility] Comment on above: Performed By: #### E RUR ####[facility] Uvfvvteckh0663 [place] [address]Dr. Anjali Reagan Nitrite Ql (U) Negative Normal NEGATIVE [facility] [place] [facility] Comment on above: Performed By: #### E RUR ####[facility] Gkxtimctjk3566 [place] [address]Dr. Anjali Reagan pH (U) 6.0 [pH] Normal 5-9 [facility] Comment on above: Performed By: #### E RUR ####[facility] Wlfhbrgmrf8[address] [place], [place] [address]Dr. Anjali Reagan SPEC GRAVITY 1.015 Normal 1.005-<=1.0 25 [facility] Comment on above: Performed By: #### E RUR ####[facility] Ameztjbioe32[address] [place], [place] [address]Dr. Anjali Reagan UA PROTEIN TRACE Normal NEGATIVE/ TRACE [facility] Comment on above: Performed By: #### E RUR ####[facility] Uwbqmeouid24[address] [place], [place] [address]Dr. Anjali Reagan UR MICRO IND NOT INDICATED Normal [facility] Comment on above: Performed By: #### E RUR ####[facility] Hsrfsbnbqs[address] [place], [place] [address]Dr. Anjali Reagan Urobilinogen Qn (U) 0.2 {Geremias'U}/dL Normal 0.2 - 1. 0 [facility] Comment on above: Performed By: #### E RUR ####[facility] Bwqqkdxsqk[address] [place], [place] [address]Dr. Anjali Reagan PROF 14(COMP METB)on 021 Albumin [Mass/Vol] 2.8 g/dL Critically low 3.5-5.0 [facility] Comment on above: Performed By: #### C MP ####[facility] Ykotmttapm[address] [place], [place] [address]Dr. Anjali Reagan Albumin/Globulin [Mass ratio] 0.6 {ratio} Normal [facility] Comment on above: Performed By: #### C MP ####[facility] Nitzwepdpl5588 [place] [id number]. Anjali Reagan ALP [Catalytic activity/Vol] 125 U/L Normal 38-126 [facility] Comment on above: Performed By: #### C MP ####[facility] Qpjdszsawk4199 [place] [address]Dr. Anjali Reagan ALT [Catalytic activity/Vol] 22 U/L Normal 21-72 [facility] Comment on above: Performed By: #### C MP ####[facility] Koinnrdenv[address] [place], [place] [address]Dr. Anjali Reagan Anion gap [Moles/Vol] 13.1 mmol/L Normal e [facility] Comment on above: Performed By: #### C MP ####[facility] Imyzhkotkd97[address] [place], [place] [address]Dr. Anjali Reagan AST [Catalytic activity/Vol] 26 U/L Normal 17-59 [facility] Comment on above: Performed By: #### C MP ####[facility] Yxzgmfpdlo7569[address] [place], [place] [address]Dr. Anjali Reagan Bilirubin [Mass/Vol] 0.8 mg/dL Normal 0.2-1.3 [facility] Comment on above: Performed By: #### C MP ####[facility] Dpnbnbfitt5[address] [place], [place] [address]Dr. Anjali Reagan Calcium [Mass/Vol] 9.2 mg/dL Normal 8.4-10.2 [facility] Comment on above: Performed By: #### C MP ####[facility] Npxpfutene75[address] [place], [place] [address]Dr. Anjali Tez Chloride [Moles/Vol] 98 mmol/L Normal 98-107 [facility] Comment on above: Performed By: #### C MP ####[facility] Enymahvtfs8112[address] [place], [place] [address]Dr. Anjali Reagan CO2 [Moles/Vol] 28.7 mmol/L Normal 22.0-30.0 The [facility] Comment on above: Performed By: #### C MP ####[facility] Eycfvasllm2223[address] [place], [place] [address]Dr. Anjali Reagan Creatinine [Mass/Vol] 1.62 mg/dL Critically high 0.66-1.25 [facility] Comment on above: Performed By: #### C MP ####[facility] Zentozpteb75[address] [place] [address]Dr. Anjali Reagan EGFR-AF RWANDAN 52 mL/min/1.73m2 Critically low >=60 [facility] Comment on above: Performed By: #### C MP ####[facility] Svnhexsums75[address] [place] [address]Dr. Anjali Reagan EGFR-NON AF RWANDAN 43 mL/min/1.73m2 Critically low >=60 [facility] Comment on above: Performed By: #### C MP ####[facility] Nckyaymezg4055 [place] [address]Dr. Anjali Reagan Globulin (S) [Mass/Vol] 4.6 g/dL Normal [facility] Comment on above: Performed By: #### C MP ####[facility] Bxpisbjoaz5907 [place] [address]Dr. Anjali Reagan Glucose [Mass/Vol] 192 mg/dL Critically high 74-106 [facility] Comment on above: Performed By: #### C MP ####[facility] Wrtimgjfvh299[address] [place], [place] [address]Dr. Anjali Reagan Potassium [Moles/Vol] 4.8 mmol/L Normal 3.4-5.0 [facility] Comment on above: Performed By: #### C MP ####[facility] Yzghrczclj8238 [place] [address]Dr. Anjali Tez Protein [Mass/Vol] 7.4 g/dL Normal 6.1-8.2 [facility] Comment on above: Performed By: #### C MP ####[facility] Mmuegznstv[address] [place], [place] [address]Dr. Anjali Reagan Sodium [Moles/Vol] 135 mmol/L Critically low 137-145 [facility] Comment on above: Performed By: #### C MP ####[facility] Wjtduhyrrg[address] [place], [place] [address]Dr. Anjali Reagan Urea nitrogen [Mass/Vol] 40.0 mg/dL Critically high 9.0-20 .0 [facility] Comment on above: Performed By: #### C MP ####[facility] Fjaobyjucg47[address] [place], [place] [address]Dr. Anjali Reagan Urea nitrogen/Creatinine [Mass ratio] 24.7 mg/mg Normal [facility] Comment on above: Performed By: #### C MP ####[facility] Tzqqdwozzy[address] [place], [place] [address]Dr. Anjali Reagan PROF CHEM 8 (BAS METB)on Anion gap [Moles/Vol] 13.4 mmol/L Normal [facility] Comment on above: Performed By: #### B MP ####[facility] Aeohlivygg93[address] [place], [place] [address]Dr. Anjali Reagan Calcium [Mass/Vol] 9.3 mg/dL Normal 8.4-10.2 [facility] Comment on above: Performed By: #### B MP ####[facility] Thtfcrcvgc[address] [place], [place] [address]Dr. Anjali Reagan Chloride [Moles/Vol] 98 mmol/L Normal 98-107 [facility] Comment on above: Performed By: #### B MP ####[facility] Wjjkdsjoex274[address] [place], [place] [address]Dr. Anjali Reagan CO2 [Moles/Vol] 28.8 mmol/L Normal 22.0-30.0 [facility] Comment on above: Performed By: #### B MP ####[facility] Imiknyhydb6[address] [place], [place] [address]Dr. Anjali Reagan Creatinine [Mass/Vol] 1.72 mg/dL Critically high 0.66-1.25 [facility] Comment on above: Performed By: #### B MP ####[facility] Wxpwwgaidh704[address] [place], [place] [address]Dr. Anjali Reagan EGFR-AF RWANDAN 49 mL/min/1.73m2 Critically low >=60 [facility] Comment on above: Performed By: #### B MP ####[facility] Qtgqwdmrsl3492 [place] [id number]. Anjali Reagan EGFR-NON AF RWANDAN 40 mL/min/1.73m2 Critically low >=60 [facility] Comment on above: Performed By: #### B MP ####[facility] Tisrwdlsdu0573 [place] [address]Dr. Anjali Reagan Glucose [Mass/Vol] 204 mg/dL Critically high 74-106 [facility] Comment on above: Performed By: #### B MP ####[facility] Xizuuailgz5413 [place] [address]Dr. Anjali Reagan Potassium [Moles/Vol] 4.2 mmol/L Normal 3.4-5.0 [facility] Comment on above: Performed By: #### B MP ####[facility] Kyonhdfnon3[address] [place] [address]Dr. Anjali Reagan Sodium [Moles/Vol] 136 mmol/L Critically low 137-145 [facility] Comment on above: Performed By: #### B MP ####[facility] Oxevizkeov6729 [place] [address]Dr. Anjali Reagan Urea nitrogen [Mass/Vol] 35.0 mg/dL Critically high 9.0-20 .0 [facility] Comment on above: Performed By: #### B MP ####[facility] Tjqjcmsgfv3255 [place] [address]Dr. Anjali Reagan Urea nitrogen/Creatinine [Mass ratio] 20.3 mg/mg Normal [facility] Comment on above: Performed By: #### B MP ####[facility] Desghrlyls734[address] [place], [place] [address]Dr. Anjali Reagan CT ANKLE RT WO CONon 021 CT ANKLE RT WO CON Normal [facility] XR ANKLE RT MIN 3 VIEWSon XR ANKLE RT MIN 3 VIEWS Normal [facility] XR ANKLE RT MIN 3 VIEWSon XR ANKLE RT MIN 3 VIEWS Normal [facility] Otolaryngology Office/Clinic Noteon 01-19-2021 Otolaryngology Office/Clinic [...] Dr. Freed. Previous pathology by physician in [place] about 1 year ago. PMHx of multiple [...] 2. Basal (more content not included)... Normal [facility] BASIC METABOLIC PANEL W/O CA on 01-15-2021 Chloride [Moles/Vol] 98 mmol/L Normal 98-110 [facility] Comment on above: Order Comment: FASTI NG:YESFASTING: YES Performed By: #### 1 0165, 496, 905 #### [facility] [address], [address] [place] [address] Incident Manager: Juan Meraz MD CO2 [Moles/Vol] 26 mmol/L Normal 20-32 [facility] Comment on above: Order Comment: FASTI NG:YESFASTING: YES Performed By: #### 1 0165, 496, 905 #### [facility] [address], [address] [place] [address] Incident Manager: Juan Meraz MD Creatinine [Mass/Vol] 1.71 mg/dL High 0.70-1.[address] [facility] Comment on above: Order Comment: FASTI NG:YESFASTING: YES Result Comment: For patients >49 years of age, the reference limit for Creatinine is approximately 13% higher for people identified as -Algerian. Performed By: #### 1 0165, 496, 905 #### [facility] [address], [address] [place] [address] Incident Manager: Juan Meraz MD eGFR NON-AFR. RWANDAN 42 mL/min/1.73m2 Low > OR = 60 [facility] Comment on above: Order Comment: FASTI NG:YESFASTING: YES Performed By: #### 1 0165, 496, 905 #### [facility] [address], [address] [place] [address] Incident Manager: Juan Meraz MD GFR/1.73 sq M.predicted among blacks MDRD (S/P/Bld) [Vol rate/Area] 48 mL/min/{1.73_m2} Low > OR = 60 [facility] Comment on above: Order Comment: FASTI NG:YESFASTING: YES Performed By: #### 1 0165, 496, 905 #### [facility] [place] [address] Incident Manager: Juan Meraz MD Glucose [Mass/Vol] 186 mg/dL High 65-99 [facility] Comment on above: Order Comment: FASTI NG:YESFASTING: YES Result Comment: Fasting reference interval For someone without known diabetes, a glucose value >125 mg/dL indicates that they may have diabetes and this should be confirmed with a follow-up test. Performed By: #### 1 0165, 497, 905 #### [facility] [place] [address] Incident Manager: Juan Meraz MD Potassium [Moles/Vol] 4.3 mmol/L Normal 3.5-5.3 [facility] Comment on above: Order Comment: FASTI NG:YESFASTING: YES Performed By: #### 1 0165, 493, 905 #### [facility] [place] [address] Incident Manager: Juan Meraz MD Sodium [Moles/Vol] 137 mmol/L Normal 135-146 [facility] Comment on above: Order Comment: FASTI NG:YESFASTING: YES Performed By: #### 1 0165, 496, 905 #### [facility] [place] [address] Incident Manager: Juan Meraz MD Urea nitrogen [Mass/Vol] 34 mg/dL High 7-25 [facility] Comment on above: Order Comment: FASTI NG:YESFASTING: YES Performed By: #### 1 0165, 496, 905 #### [facility] [place] [address] Incident Manager: Juan Meraz MD Urea nitrogen/Creatinine [Mass ratio] 20 mg/mg Normal 6-22 [facility] Comment on above: Order Comment: SALLIE NG:YESFASTING: YES Performed By: #### 1 0165, 496, 905 #### [facility] of [place] [address] Incident Manager: Juan Meraz MD CBC (INCLUDES DIFF/PLT)on Basophils (Bld) [#/Vol] 0.026 10*3/uL Normal 0-200 [facility] Comment on above: Performed By: #### 1 0165, 496, 905 #### [facility] of [place] [address] Incident Manager: Juan Meraz MD Basophils/100 WBC (Bld) 0.3 % Normal [facility] Comment on above: Performed By: #### 1 0165, 496, 905 #### [facility] of [place] [address] Incident Manager: Juan Meraz MD Eosinophils (Bld) [#/Vol] 0.202 10*3/uL Normal 15-500 [facility] Comment on above: Performed By: #### 1 0165, 496, 905 #### [facility] [place] [address] Incident Manager: Juan Meraz MD Eosinophils/100 WBC (Bld) 2.3 % Normal [facility] Comment on above: Performed By: #### 1 0165, 496, 905 #### [facility] of [place] [address] Incident Manager: Juan Meraz MD Erythrocyte distribution width (RBC) [Ratio] 15.7 % High 11.0-15.0 [facility] Comment on above: Performed By: #### 1 0165, 496, 905 #### [facility] of [place] [address] Incident Manager: Juan Meraz MD Hematocrit (Bld) [Volume fraction] 34.9 % Low 38.5-50.0 [facility] Comment on above: Performed By: #### 1 0165, 496, 905 #### [facility] of [place] [address] Incident Manager: Juan Meraz MD Hemoglobin (Bld) [Mass/Vol] 10.9 g/dL Low 13.2-17.1 [facility] Comment on above: Performed By: #### 1 016, 496, 905 #### [facility] of [place] [address] Incident Manager: Juan Meraz MD Lymphocytes (Bld) [#/Vol] 0.748 10*3/uL Low 850-3900 [facility] Comment on above: Performed By: #### 1 164, 496, 905 #### [facility] of [place] [address] Incident Manager: Juan Meraz MD Lymphocytes/100 WBC (Bld) 8.5 % Normal [facility] Comment on above: Performed By: #### 1 164, 496, 905 #### [facility] [place] [address] Incident Manager: Juan Meraz MD MCH (RBC) [Entitic mass] 25.1 pg Low 27.0-33.0 [facility] Comment on above: Performed By: #### 1 164, 496, 905 #### [facility] of [place] [address] Incident Manager: Juan Meraz MD MCHC (RBC) [Mass/Vol] 31.2 g/dL Low 32.0-36.[address] [facility] Comment on above: Performed By: #### 1 016, 496, 905 #### [facility] of [place] [address] Incident Manager: Juan Meraz MD MCV (RBC) [Entitic vol] 80.4 fL Normal 80.0-100.0 [facility] Comment on above: Performed By: #### 1 0165, 496, 905 #### [facility] of [place] [address] Incident Manager: Juan Meraz MD Monocytes (Bld) [#/Vol] 0.889 10*3/uL Normal 200-950 [facility] Comment on above: Performed By: #### 1 0165, 496, 905 #### [facility] [place] [address] Incident Manager: Juan Meraz MD Monocytes/100 WBC (Bld) 10.1 % Normal [facility] Comment on above: Performed By: #### 1 0165, 496, 905 #### [facility] [place] [address] Incident Manager: Juan Meraz MD Neutrophils (Bld) [#/Vol] 6.934 10*3/uL Normal 6368-9871 [facility] Comment on above: Performed By: #### 1 0165, 496, 905 #### [facility] [place] [address] Incident Manager: Juan Meraz MD Neutrophils/100 WBC (Bld) 78.8 % Normal [facility] Comment on above: Performed By: #### 1 0165, 496, 905 #### [facility] [place] [address] Incident Manager: Juan Meraz MD Platelet mean volume (Bld) [Entitic vol] 9.9 fL Normal 7.5-12.5 [facility] Comment on above: Performed By: #### 1 0165, 496, 905 #### [facility] of [place] [address] Incident Manager: Juan Meraz MD Platelets (Bld) [#/Vol] 353 10*3/uL Normal 140-400 [facility] Comment on above: Performed By: #### 1 0165, 496, 905 #### [facility] of [address] , [address] [place] [address] Incident Manager: Juan Meraz MD RBC (Bld) [#/Vol] 4.34 10*6/uL Normal 4.20-5.80 [facility] Comment on above: Performed By: #### 1 0165, 496, 905 #### [facility] [place] [address] [place] , [address] [place] [address] Incident Manager: Juan Meraz MD WBC (Bld) [#/Vol] 8.8 10*3/uL Normal 3.8-10.8 [facility] Comment on above: Performed By: #### 1 0165, 496, 905 #### [facility] [address], [address] [place] [address] Incident Manager: Juan Meraz MD Otolaryngology Office/Clinic Noteon 01-14-2021 [...] oral caps (more content not included)... Normal [facility] Otolaryngology Office/Clinic Noteon 01-12-2021 Otolaryngology [...] Dr. Freed. Previous pathology by physician in [place] about 1 year ago. PMHx of multiple [...] separately bill (more content not included)... Normal [facility] Operative Reporton Operative Report Date: [...] Chirag Gutierrez DO 01/11/21 20:09 EDT Normal [facility] Operative Report Date: January 11, [...] Chirag Gutierrez DO 01/11/21 09:28 EDT Normal [facility] POC Glucose Randomon 021 Glucose [Mass/Vol] 211 mg/dL High 70-99 [facility] Comment on above: Performed By: #### C D:[id number] ####[address] [address] CoV2 Agon 01-10-2021 Employed in healthcare? Unknown Normal B [facility] Comment on above: Performed By: #### C D:[id number] ####[address] [address] Group care resident? Unknown Normal [facility] Comment on above: Performed By: #### C D:[id number] ####[address] [address] In ICU? No Normal [facility] Comment on above: Performed By: #### C D:[id number] ####[address] [address] status? Not Applicable [facility] Comment on above: Performed By: #### C D:[id number] ####[address] [address] SARS-CoV-2 (COVID-19) RNA MEREDITH+probe Ql (Unsp spec) Normal Negative [facility] Comment on above: Result Comment: [...] Negative ADDITIONAL INFORMATION: Testing performed on the [employer]set[employer] 3600 using the SARS-CoV-2 Antigen test. Results are for the identification of SARS-CoV-2 nucleocapsid antigen. The [employer] SARS-CoV-2 Antigen test can detect both viable [...] test results. In the [place], the [employer] SARS-CoV-2 Antigen test is only for use under the Food and Drug Administration?s Emergency Use Authorization. HCP Fact Sheet: https://www.fda.gov/media/901177/download Patient Fact Sheet: https://www.fda.gov/media/731473/download Performed By: #### C D:[id number] ####[address] [address] SARS-CoV-2 (COVID-19) RNA MEREDITH+probe Ql (Unsp spec) Unknown Normal [facility] Comment on above: Performed By: #### C D:[id number] ####[address] [place] [address] Symptomatic as defined by CDC? Unknown Normal [facility] Comment on above: Performed By: #### C D:[id number] ####[address] [address] BASIC METABOLIC PANELon 10-0 Calcium [Mass/Vol] 9.6 mg/dL Normal 8.6-10.3 [facility] Comment on above: Performed By: #### 1 2149, 496, 905 #### [facility] [address], [address] [place] [address] Incident Manager: Juan Meraz MD Chloride [Moles/Vol] 100 mmol/L Normal 98-110 [facility] Comment on above: Performed By: #### 1 0165, 496, 905 #### [facility] [place] [address] Incident Manager: Juan Meraz MD CO2 [Moles/Vol] 30 mmol/L Normal 20-32 [facility] Comment on above: Performed By: #### 1 0165, 49, 905 #### [facility] [place] [address] Incident Manager: Juan Meraz MD Creatinine [Mass/Vol] 1.67 mg/dL High 0.70-1.[address] [facility] Comment on above: Result Comment: For patients >49 years of age, the reference limit for Creatinine is approximately 13% higher for people identified as -Algerian. Performed By: #### 1 016, 496, 905 #### [facility] [place] [address] Incident Manager: Juan Meraz MD eGFR NON-AFR. RWANDAN 43 mL/min/1.73m2 Low > OR = 60 [facility] Comment on above: Performed By: #### 1 016, 49, 905 #### [facility] [place] [address] Incident Manager: Juan Meraz MD GFR/1.73 sq M.predicted among blacks MDRD (S/P/Bld) [Vol rate/Area] 50 mL/min/{1.73_m2} Low > OR = 60 [facility] Comment on above: Performed By: #### 1 016, 493, 905 #### [facility] [place] [address] Incident Manager: Juan Meraz MD Glucose [Mass/Vol] 124 mg/dL High 65-99 [facility] Comment on above: Result Comment: Fasting reference interval For someone without known diabetes, a glucose value between 100 and 125 mg/dL is consistent with prediabetes and should be confirmed with a follow-up test. Performed By: #### 1 0165, 496, 905 #### [facility] [address], [address] [place] [address] Incident Manager: Juan Meraz MD Potassium [Moles/Vol] 4.7 mmol/L Normal 3.5-5.3 [facility] Comment on above: Performed By: #### 1 0165, 496, 905 #### [facility] [place] [address] Incident Manager: Juan Meraz MD Sodium [Moles/Vol] 138 mmol/L Normal 135-146 [facility] Comment on above: Performed By: #### 1 0165, 496, 905 #### [facility] [place] [address] Incident Manager: Juan Meraz MD Urea nitrogen [Mass/Vol] 40 mg/dL High 7-25 [facility] Comment on above: Performed By: #### 1 0165, 496, 905 #### [facility] [place] [address] Incident Manager: Juan Meraz MD Urea nitrogen/Creatinine [Mass ratio] 24 mg/mg High 6-22 [facility] Comment on above: Performed By: #### 1 0165, 496, 905 #### [facility] [place] [address] Incident Manager: Juan Meraz MD HEMOGLOBIN A1con 12-31-2020 HEMOGLOBIN [...] 1 0165, 496, 905 #### [facility] [address], [address] [place] [address] Incident Manager: Juan Meraz MD Provider Letteron 12-31-2020 Provider Letter [facility]; Facial Plastic Surgery [address] [place] [address] P: [phone] F: [phone] [facility] Anai [id number] Date of Visit: 01/05/2021 ATTENTION MEDICAL RECORDS: We are requesting pathology report for biopsy of left ear done within the last 2 years for patient Anai Goodman 59. Thank you, ChiragEwa [facility] Provider Letter [facility] Surgery [facility]; Facial Plastic Surgery [address] [place], [place] [address] P: [phone] F: [phone] Chirag Gutierrez DO [facility] Re: Anai [id number] Date of Visit: 01/05/2021 ATTENTION MEDICAL RECORDS: We are requesting pathology report for biopsy of left ear done within the last 2 years for patient Anai Goodman. Thank you, ChiragEwa [facility] Provider Letter [facility]; Facial Plastic Surgery [address] [place], [place] [address] P: [phone] F: [phone] [place] [address] Re: Anai [id number] Date of Visit: 01/05/2021 [...] prior to 01/05/21. Thank you, Muna Normal [facility] URIC ACIDon 12-31-2020 Urate [Mass/Vol] 10.3 mg/dL High 4.0-8.0 [facility] Comment on above: Order Comment: FASTI NG:YES FASTING: YES Result Comment: Ther apeutic target for gout patients: <6.0 mg/dL Performed By: #### 1 0165, 496, 905 #### [facility] [address], [address] [place] [address] Incident Manager: Juan Meraz MD Provider Letteron 12-17-2020 Provider Letter Deon Brito [address] [place] [id number] Re: Anai Goodman Date of Visit: 12/15/2020 Dear Deon Braxton, I am referring Anai to your office for care. Attached your will find my notes and impressions from our visit. Deon Braxton DO Re:Anai Goodman 1955 Date of Visit: 12/15/2020 Dear Deon Braxton DO: I had the pleasure of evaluating patient, Anai Goodman, in the [facility] clinic on 12/15/2020. Attached you will [...] Gutierrez, DO [facility] of [address] [address] Let me know if you have any questions or concerns. Sincerely, Tyesha Dunne Providers: The following document(s) were included in the letter: December 15, 2020 13:30:00 EDT - (12/15/2020) Office Visit Note Normal [facility] Otolaryngology Office/Clinic Noteon 12-15-2020 Otolaryngology [...] Dr. Freed. Previous pathology by physician in [place] about 1 year ago. PMHx of multiple [...] mL, 1 Refill(s), 12/18/20 14:00:00 EDT, Pharmacy: [id number] Medical Decision Making Chronic conditions NOT treated [...] 5000 intl (more content not included)... Normal [facility] Otolaryngology Office/Clinic Note Chief Complaint [...] Dr. Freed. Previous pathology by physician in [place] about 1 year ago. PMHx of multiple [...] meal to (more content not included)... Normal [facility] XR ANKLE RT MIN 3 VIEWSon XR ANKLE RT MIN 3 VIEWS Normal [facility] XR FOOT RT MIN 3 VIEWSon XR FOOT RT MIN 3 VIEWS Normal [facility] XR FOOT RT MIN 3 VIEWSon XR FOOT RT MIN 3 VIEWS Normal [facility] XR FOOT RT MIN 3 VIEWSon XR FOOT RT MIN 3 VIEWS Normal [facility] Consultation Noteon 05-11-19 Consultation Note [id number]:127 Normal [facility] Vital Signs Date Time Vital Sign Value Performing Clinician Facility 04-12-2023 11:11-0500 Body height 182.9 cm Terry ESCOBEDO Work Phone: [facility] 04-12-2023 11:11-0500 Body mass index (BMI) [Ratio] 28.89 kg/m2 Terry ESCOBEDO Work Phone: [facility] 04-12-2023 11:11-0500 Body weight 96.62 kg Terry ESCOBEDO Work Phone: [facility] 04-12-2023 11:11-0500 Diastolic blood pressure 74 mm[Hg] Terry ESCOBEDO Work Phone: [facility] 04-12-2023 11:11-0500 Heart rate 74 /min Terry ESCOBEDO Work Phone: [facility] 04-12-2023 11:11-0500 SaO2% (BldA) [Mass fraction] 97 % Terry ESCOBEDO Work Phone: [facility] 04-12-2023 11:11-0500 Systolic blood pressure 126 mm[Hg] Terry Lock PRINCIPAL SOFTWARE ENGINEER-FARM EQUIPMENT TECHNICIAN Work Phone: [facility] 12-05-2022 13:00-0400 Body height 177.8 cm Ghanshyam Kaye Other [facility] Other 12-05-2022 13:00-0400 Diastolic blood pressure 70 mm[Hg] Ghanshyam Kaye Other [facility] Other 12-05-2022 13:00-0400 SaO2% (BldA) [Mass fraction] 97 % Ghanshyam Kaye Other [facility] Other 12-05-2022 13:00-0400 Systolic blood pressure 110 mm[Hg] Ghanshyam Kaye Other [facility] Other 10-05-2022 10:00-0400 Body height 177.8 cm Dung Serna Other [facility] Other 10-05-2022 10:00-0400 Body mass index (BMI) [Ratio] 31.85 kg/m2 Dung Serna Other [facility] Other 10-05-2022 10:00-0400 Body weight 100.7 kg Dung Serna Other [facility] Other 10-05-2022 10:00-0400 Diastolic blood pressure 70 mm[Hg] Dung Serna Other [facility] Other 10-05-2022 10:00-0400 Systolic blood pressure 118 mm[Hg] Dung Serna Other [facility] Other 06-02-2022 11:00-0500 Body height 177.8 cm Reddy Brandt Other [facility] Other 06-02-2022 11:00-0500 Body mass index (BMI) [Ratio] 30.13 kg/m2 Reddy Brandt Other [facility] Other 06-02-2022 11:00-0500 Body weight 95.26 kg Reddy Brandt Other [facility] Other 03-15-2022 13:45-0500 Body height 177.8 cm Reddy Brandt Other [facility] Other 03-15-2022 13:45-0500 Body mass index (BMI) [Ratio] 30.85 kg/m2 Reddy Brandt Other [facility] Other 03-15-2022 13:45-0500 Body weight 97.52 kg Reddy Brandt Other [facility] Other 02-07-2022 14:00-0500 Body height 177.8 cm Ghanshyam Shermaney Other [facility] Other 02-07-2022 14:00-0500 Body mass index (BMI) [Ratio] 30.85 kg/m2 Ghanshyam Kaye Other [facility] Other 02-07-2022 14:00-0500 Body weight 97.52 kg Ghanshyam Kaye Other [facility] Other 02-07-2022 14:00-0500 Diastolic blood pressure 72 mm[Hg] Ghanshyam Kaye Other [facility] Other 02-07-2022 14:00-0500 SaO2% (BldA) [Mass fraction] 98 % Ghanshyam Kaye Other [facility] Other 02-07-2022 14:00-0500 Systolic blood pressure 118 mm[Hg] Ghanshyam Kaye Other [facility] Other 11-29-2021 14:35-0400 Diastolic blood pressure 78 mm[Hg] DO Deon Cordovahas Work Phone: [facility] 11-29-2021 14:35-0400 Heart rate 75 /min DO Deon Cordovahas Work Phone: [facility] 11-29-2021 14:35-0400 Respiratory rate 16 /min DO Deon Cordovahas Work Phone: [facility] 11-29-2021 14:35-0400 SaO2% (BldA) [Mass fraction] 95 % DO Deon Cordovahas Work Phone: [facility] 11-29-2021 14:35-0400 Systolic blood pressure 123 mm[Hg] DO Deon Cordovahas Work Phone: [facility] 11-29-2021 13:39-0400 Inhaled oxygen flow rate 8 L/min DO Deon Cordovahas Work Phone: [facility] 11-29-2021 13:24-0400 Body temperature 98.5 [degF] DO Deon Cordovahas Work Phone: [facility] 11-29-2021 12:10-0400 Body height 182.88 cm DO Deon Cordovahas Work Phone: [facility] 11-29-2021 12:10-0400 Body mass index (BMI) [Ratio] 30.5 kg/m2 DO Deon Tashahas Work Phone: [facility] 11-29-2021 12:10-0400 Body weight 102.05 kg DO Deon Tashahas Work Phone: [facility] 11-03-2021 10:41-0400 Diastolic blood pressure 66 mm[Hg] DO Deon Tashahas Work Phone: [facility] 11-03-2021 10:41-0400 Heart rate 78 /min DO Deon Tashahas Work Phone: [facility] 11-03-2021 10:41-0400 Respiratory rate 16 /min DO Deon Tashahas Work Phone: [facility] 11-03-2021 10:41-0400 SaO2% (BldA) [Mass fraction] 97 % DO Deon Cordovahas Work Phone: [facility] 11-03-2021 10:41-0400 Systolic blood pressure 121 mm[Hg] DO Deon Cordovahas Work Phone: [facility] 11-03-2021 09:41-0400 Body temperature 98 [degF] DO Deon Cordovahas Work Phone: [facility] 11-03-2021 09:11-0400 Inhaled oxygen flow rate 8 L/min DO Deon Cordovahas Work Phone: [facility] 11-03-2021 07:37-0400 Body height 182.88 cm DO Deon Cordovahas Work Phone: [facility] 11-03-2021 07:37-0400 Body mass index (BMI) [Ratio] 30.5 kg/m2 DO Deon Tashahas Work Phone: [facility] 11-03-2021 07:37-0400 Body weight 102.05 kg DO Deon Tashahas Work Phone: [facility] 11-01-2021 18:03-0400 Diastolic blood pressure 69 mm[Hg] DO Deon Yuhas Work Phone: [facility] 11-01-2021 18:03-0400 Heart rate 71 /min DO Deon Tashahas Work Phone: [facility] 11-01-2021 18:03-0400 Respiratory rate 16 /min DO Deon Yuhas Work Phone: [facility] 11-01-2021 18:03-0400 SaO2% (BldA) [Mass fraction] 99 % DO Deon Yuhas Work Phone: [facility] 11-01-2021 18:03-0400 Systolic blood pressure 124 mm[Hg] DO Deon Yuhas Work Phone: [facility] 11-01-2021 16:21-0400 Body height 182.88 cm DO Deon Yuhas Work Phone: [facility] 11-01-2021 16:21-0400 Body temperature 98 [degF] DO Deon Yuhas Work Phone: [facility] 11-01-2021 16:21-0400 Body weight 102.05 kg DO Deon Yuhas Work Phone: [facility] 10-31-2021 10:30-0400 Body height 177.8 cm Reddy Brandt Other [facility] Other 10-27-2021 05:00-0400 Body temperature 98.6 [degF] DO Deon Tashahas Work Phone: [facility] 10-27-2021 05:00-0400 Diastolic blood pressure 72 mm[Hg] DO Deon Yuhas Work Phone: [facility] 10-27-2021 05:00-0400 Heart rate 70 /min DO Deon Yuhas Work Phone: [facility] 10-27-2021 05:00-0400 Respiratory rate 16 /min DO Deon Yuhas Work Phone: [facility] 10-27-2021 05:00-0400 SaO2% (BldA) [Mass fraction] 98 % DO Deon Yuhas Work Phone: [facility] 10-27-2021 05:00-0400 Systolic blood pressure 132 mm[Hg] DO Deon Cordovahas Work Phone: [facility] 10-24-2021 12:00-0400 Body height 182.88 cm DO Deon Cordovahas Work Phone: [facility] 10-23-2021 05:26-0400 Body weight 70.9 kg DO Deon Cordovahas Work Phone: [facility] 10-22-2021 04:14-0400 Inhaled oxygen concentration 21 % DO Deon Cordovahas Work Phone: [facility] 10-21-2021 12:00-0400 Body temperature 98.1 [degF] DO Deon Cordovahas Work Phone: [facility] 10-21-2021 12:00-0400 Diastolic blood pressure 73 mm[Hg] DO Deon Cordovahas Work Phone: [facility] 10-21-2021 12:00-0400 Heart rate 76 /min DO Deon Ramoss Work Phone: [facility] 10-21-2021 12:00-0400 Respiratory rate 18 /min DO Deon Ramoss Work Phone: [facility] 10-21-2021 12:00-0400 SaO2% (BldA) [Mass fraction] 95 % DO Deon Cordovahas Work Phone: [facility] 10-21-2021 12:00-0400 Systolic blood pressure 128 mm[Hg] DO Deon Cordovahas Work Phone: [facility] 10-21-2021 06:00-0400 Body weight 99.9 kg DO Deon Tashahas Work Phone: [facility] 10-21-2021 02:05-0400 Inhaled oxygen concentration 21 % DO Deon Tashahas Work Phone: [facility] 10-19-2021 11:00-0400 Body height 182.88 cm DO Deon Braxton Work Phone: [facility] 10-18-2021 15:37-0400 Inhaled oxygen flow rate 6 L/min DO Deon Braxton Work Phone: [facility] 10-18-2021 13:19-0400 Body mass index (BMI) [Ratio] 29.8 kg/m2 DO Deon Braxton Work Phone: [facility] 10-12-2021 10:00-0400 Body height 177.8 cm Reddy Karly Other [facility] Other 10-12-2021 10:00-0400 Body mass index (BMI) [Ratio] 32.28 kg/m2 Reddy Karly Other [facility] Other 10-12-2021 10:00-0400 Body weight 102.06 kg Reddy Karly Other [facility] Other 10-06-2021 14:15-0400 Body height 177.8 cm Pako Aguilar Other [facility] Other 10-06-2021 14:15-0400 Body mass index (BMI) [Ratio] 32.28 kg/m2 Pako Aguilar Other [facility] Other 10-06-2021 14:15-0400 Body temperature 97.3 [degF] Pako Aguilar Other [facility] Other 10-06-2021 14:15-0400 Body weight 102.06 kg Pako Aguilar Other [facility] Other 10-06-2021 14:15-0400 Diastolic blood pressure 73 mm[Hg] Pako Augilar Other [facility] Other 10-06-2021 14:15-0400 Systolic blood pressure 127 mm[Hg] Pako Aguilar Other [facility] Other 09-08-2021 15:30-0400 Body height 177.8 cm Pako Aguilar Other [facility] Other 09-08-2021 15:30-0400 Body temperature 98.1 [degF] Pako Aguilar Other [facility] Other 09-08-2021 15:30-0400 Diastolic blood pressure 73 mm[Hg] Pako Leon Other [facility] Other 09-08-2021 15:30-0400 Systolic blood pressure 149 mm[Hg] Pako Leon Other [facility] Other Encounters Encounter Date Encounter Type Care Provider Facility Start: 10-01-2023 End: 10-01-[address] [facility] Start: 09-18-2023 End: 09-18-[address] [facility] Start: 09-13-2023 End: 09-13-2023 ambulatory [facility] Start: 09-06-2023 End: 09-06-2023 ambulatory [facility] Start: 08-02-2023 End: 08-03-2023 ambulatory [facility] Start: 08-02-2023 End: 08-02-2023 ambulatory [facility] Start: 08-01-2023 End: 08-01-2023 ambulatory [...] ([facility]) Start: 05-12-2023 Refill Deon Grace Walker O Work Phone: [facility] Comment on above: Pure hypercholestero lemia Med Refill Start: 04-19-2023 End: 04-19-2023 ambulatory Salina Walker [facility] Facility:[facility] Start: 04-19-2023 End: 04-19-2023 ambulatory DO Deon Ramoss Work Phone: [facility] Work Phone: Start: 04-19-2023 End: 04-19-2023 Departed Referred DO Deon Ramoss Work Phone: [facility]-LAB Path [facility] Start: 04-13-2023 Refill Kaylene [facility]nam[facility] Comment on above: 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, with long-term current use of insulin ([facility]) Start: 04-12-2023 End: 04-12-2023 ambulatory [facility] Start: 04-12-2023 Encounter for prepro cedural cardiovascular examination [facility] Start: 04-12-2023 End: 04-12-2023 Office outpatient visit 25 minutes Terry Lock PRINCIPAL SOFTWARE ENGINEER-FARM EQUIPMENT TECHNICIAN Work Phone: [facility] Comment on above: Preop cardiovascular exam (Primary Dx); Coronary artery disease involving [place] coronary artery of [place] heart without angina pectoris; Ischemic cardiomyopathy; Chronic systolic congestive heart failure (CMS-HCC); Apical mural thrombus; Essential (primary) hypertension; Cardiac defibrillator in place- [employer]; Mixed hyperlipidemia Start: 04-12-2023 End: 04-12-2023 Patient encounter status Terry Lock PRINCIPAL SOFTWARE ENGINEER-FARM EQUIPMENT TECHNICIAN Work Phone: [facility] Work Phone: Start: 04-05-2023 End: 04-05-2023 ambulatory YOVANNY CALHOUN [facility] Start: 04-03-2023 End: 04-03-2023 ambulatory Dung Serna Other [facility] Other Start: 04-03-2023 Telephone encounter Dung Serna [facility] Start: 03-22-2023 End: 03-23-2023 ambulatory [facility] Start: 03-22-2023 End: 03-22-2023 ambulatory YOVANNY CALHOUN Not Available Start: 03-22-2023 End: 03-22-2023 ambulatory YOVANNY CALHOUN Not Available Start: 03-22-2023 End: 03-22-2023 ambulatory [facility] Start: 03-07-2023 End: 03-07-2023 ambulatory ZOEYERIC KIMBLEILL Not Available Start: 01-11-2023 End: 01-11-2023 ambulatory Ghanshyam Kaye Other [facility] Other Start: 01-11-2023 Telephone encounter Ghanshyam Kaye [facility] Start: 12-05-2022 End: 12-05-2022 ambulatory Ghanshyam Kaye Other [facility] Other Start: 12-05-2022 Office outpatient vi sit 15 minutes Ghanshyam Kaye [facility] Start: 10-05-2022 Office outpatient ne w 30 minutes Dung Serna [facility] Start: 10-05-2022 End: 10-05-2022 ambulatory [facility] Other Start: 08-02-2022 End: 08-02-2022 ambulatory Reddy Brandt Other [facility] Other Start: 08-02-2022 Office outpatient vi sit 15 minutes Reddy Brandt [facility] Start: 06-02-2022 End: 06-02-2022 ambulatory Reddy Brandt Other [facility] Other Start: 06-02-2022 Postop follow up vis it related to original px Reddy Brandt [facility] Start: 05-12-2022 End: 05-12-2022 ambulatory Reddy Brandt Other [facility] Other Start: 05-12-2022 Telephone encounter Reddy MOE G [facility] Start: 05-03-2022 End: 05-03-2022 ambulatory DO Deon Braxton Work Phone: [facility] Work Phone: Start: 05-03-2022 End: 05-03-2022 Patient encounter procedure DO Deon Braxton Work Phone: [facility]-Video [address] Start: 04-28-2022 End: 04-28-2022 ambulatory Reddy Brandt Other [facility] Other Start: 04-28-2022 Office outpatient vi sit 15 minutes Reddy Brandt [facility] Start: 04-17-2022 End: 04-17-2022 ambulatory Reddy Brandt Other [facility] Other Start: 04-17-2022 Telephone encounter Reddy MOE G [facility] Start: 04-12-2022 End: 04-12-2022 ambulatory Reddy Brandt Other [facility] Other Start: 04-12-2022 Postop follow up vis it related to original px Reddy Karly [facility] Start: 03-15-2022 End: 03-15-2022 ambulatory Reddy Karly Other [facility] Other Start: 03-15-2022 Office outpatient vi sit 15 minutes Reddy Meehanley [facility] Start: 02-07-2022 End: 02-07-2022 ambulatory Ghanshyam Kaye Other [employer] Other Start: 02-07-2022 Office outpatient vi sit 15 minutes Ghanshyam Shermaney [facility] Start: 02-03-2022 End: 02-03-2022 ambulatory Reddy Karly Other [employer] Other Start: 02-03-2022 Postop follow up vis it related to original px Reddy Brandt [facility] Start: 01-24-2022 End: 01-24-2022 ambulatory Reddy Brandt Other [employer] Other Start: 01-24-2022 Telephone encounter Reddy MOE [facility] Start: 01-20-2022 End: 01-20-2022 ambulatory Reddy Brandt Other [employer] Other Start: 01-20-2022 Postop follow up vis it related to original px Reddy Karly [facility] Start: 01-16-2022 End: 01-16-2022 ambulatory Reddy Brandt Other [employer] Other Start: 01-16-2022 Telephone encounter Reddy MOE G [employer] Start: 01-06-2022 End: 01-06-2022 ambulatory Reddy Brandt Other [employer] Other Start: 01-06-2022 Postop follow up vis it related to original px Reddy Brandt [facility] Start: 12-23-2021 End: 12-23-2021 ambulatory Reddy Karly Other [employer] Other Start: 12-23-2021 Postop follow up vis it related to original px Reddy Brandt [facility] Start: 12-20-2021 End: 12-20-2021 Discharged Recurring DO Deon Braxton Work Phone: [facility]-Infusion Therapy - O/P Start: 12-14-2021 End: 12-14-2021 ambulatory Reddy Brandt Other [employer] Other Start: 12-14-2021 Postop follow up vis it related to original px Reddy Brandt [facility] Start: 12-12-2021 End: 12-12-2021 ambulatory Reddy Brandt Other [employer] Other Start: 12-12-2021 Telephone encounter Reddy Karly [facility] Start: 12-09-2021 End: 12-09-2021 ambulatory Reddy Karly Other [employer] Other Start: 12-09-2021 Postop follow up vis it related to original px Reddy Meehanley [facility] Start: 11-29-2021 End: 11-29-2021 Evaluation and management of inpatient DO Deon Braxton Work Phone: [facility]-[address] [place] [address] Surgical Start: 11-29-2021 End: 11-29-2021 Admission to same day surgery center DO Deon Braxton Work Phone: [facility]-Surgery Center [facility] Start: 11-28-2021 End: 11-28-2021 ambulatory Reddy Karly Other [employer] Other Start: 11-28-2021 Postop follow up vis it related to original px Reddy Karly [facility] Start: 11-21-2021 End: 11-21-2021 ambulatory Reddy Brandt Other [employer] Other Start: 11-21-2021 Telephone encounter Reddy MOE G [facility] Start: 11-03-2021 End: 11-03-2021 Admission to same day surgery center DO Deon Ramosanival Work Phone: [facility]-Surgery Center [facility] Start: 11-02-2021 End: 11-02-2021 ambulatory Reddy Brandt Other [employer] Other Start: 11-02-2021 Postop follow up vis it related to original px Reddybryan Brandt [facility] Start: 11-02-2021 End: 11-02-2021 Patient encounter procedure DO Deon Braxton Work Phone: [facility]-Pre-Surgical Testing Start: 11-01-2021 End: 11-01-2021 Emergency department patient visit DO Deon Braxton Work Phone: [facility]-Emergency Room Start: 11-01-2021 End: 11-01-2021 ambulatory Reddy Brandt Other [employer] Other Start: 11-01-2021 Telephone encounter Reddy MOE [facility] Start: 10-31-2021 End: 10-31-2021 ambulatory Reddy Brandt Other [employer] Other Start: 10-31-2021 Postop follow up vis it related to original px Reddybryan Brandt [facility] Start: 10-21-2021 End: 10-27-2021 Evaluation and management of inpatient DO Deon Braxton Work Phone: [facility] Start: 10-18-2021 End: 10-21-2021 Evaluation and management of inpatient DO Deon Braxton Work Phone: [facility] Start: 10-14-2021 End: 10-14-2021 Patient encounter procedure DO Deon Braxton Work Phone: [facility]-Pre-Surgical Testing Start: 10-12-2021 End: 10-12-2021 ambulatory Reddy Brandt Other [facility] Other Start: 10-12-2021 Office outpatient vi sit 25 minutes Reddy ROSENBERG [facility] Start: 10-10-2021 End: 10-10-2021 Patient encounter procedure DO Deon Braxton Work Phone: [facility]-MRI [facility] Start: 10-06-2021 End: 10-06-2021 Patient encounter procedure DO Deon Braxton Work Phone: [facility]-Lab [facility] Start: 10-06-2021 End: 10-06-2021 ambulatory Reddy Brandt Other [facility] Other Start: 10-06-2021 Office outpatient vi sit 25 minutes Pako ROSENBERG [facility] Start: 10-06-2021 Telephone encounter Red[facility] Start: 09-29-2021 End: 09-29-2021 Patient encounter procedure DO Deon Braxton Work Phone: [facility]-Pacemaker Check Start: 09-26-2021 End: 09-26-2021 ambulatory Reddy Brandt Other [employer] Other Start: 09-26-2021 Telephone encounter Reddy Gil [facility] Start: 09-21-2021 End: 09-21-2021 Patient encounter procedure DO Deon Braxton Work Phone: [facility]-XRay [facility] Start: 09-21-2021 ambulatory SALINA LEE Faci lity:[facility]1 Start: 09-09-2021 End: 09-10-[address] DEON BRAXTON Facility:[facility] Start: 09-09-2021 End: 09-10-2021 ambulatory SALINA Aaron CHAYORAIS Facility:[facility] Start: 09-08-2021 End: 09-08-2021 ambulatory Pako Aguilar Other [facility] Other Start: 09-08-2021 Office outpatient vi sit [...] 02-28-2021 ambulatory DEON edmonds:[facility] Start: 02-23-2021 End: 02-24-2021 ambulatory SALINA LEE Facility:[facility] Start: 02-22-2021 ambulatory DEON BRAXTON Faci lity:[facility] Start: 02-17-2021 End: 02-18-2021 ambulatory SALINA LEE Facility:[facility] Start: 02-09-2021 Encounter for prepro cedural laboratory examination SALINA LEE [facility] Start: 02-08-2021 End: 02-12-2021 Evaluation and [...] Start: 01-11-2021 End: 01-11-2021 ambulatory DEON BRAXTON Facility:[facility] Start: 01-10-2021 End: 01-11-2021 ambulatory DEON BRAXTON Facility:[facility] Start: 12-08-2020 End: 12-09-[address] DEON [...] w/le ast 12 lds w/i&r Terry Leo [employer] Work Phone: Start: 03-22-2023 Adult depression scr eening assessment Terry Lock [employer] Work Phone: Start: 12-29-2022 Diabetic retinal eye exam Terry Leo [employer] Work Phone: Start: 10-26-2022 Microalbumin [Mass/v olume] in Urine by Test strip Terry Leo [employer] Work Phone: Start: 11-29-2021 Incision and drainag e of lower extremity DO Deon Braxton Work Phone: Start: 11-03-2021 Amputation of right lower limb DO Deon Braxton Work Phone: Start: 10-18-2021 Amputation of right lower limb DO Deon Braxton Work Phone: Start: 10-10-2021 MRI of lower leg DO Rylan Bratxon Work Phone: Start: 09-21-2021 Plain X-ray of [...] Other Investigation of transfusion reaction DO Deon Cordova[employer]rovac Phone: SARS-CoV-2, Influenz a & RSV (PCR) DO Deon [employer] Work Phone: Plan of Treatment Date Care Activity Detail Author Start: 01-13-2026 DTaP,Tdap and Td Vaccines (2 - Td or Tdap) DTaP,Tdap and Td Vaccines (2 - Td or Tdap) [facility] Start: 05-24-2024 Glaucoma screening Diabetic Ophthalmology Exam [facility] [employer] [facility] Start: 04-12-2024 Adult BMI Screening Adult BMI Screening [facility] [employer] Start: 04-12-2024 Tobacco Screening Tobacco Screening [facility] [employer] Start: 03-22-2024 Depression Screening Depression Screening [facility] [employer] [facility] Start: 03-22-2024 Fall Risk Screening Fall Risk Screening [facility] [employer] [facility] Start: 12-30-2023 Glaucoma screening Diabetic Ophthalmology Exam [email or web address] Start: 11-29-2023 End: 11-29-2023 Patient encounter procedure 11/29/2023 9:00 AM EDT Office Visit [facility] - [facility] [address] [place] [address] [facility] Start: 11-24-2023 Medicare Annual Wellness Visit Medicare Annual Wellness Visit [facility] Start: 10-27-2023 Diabetic foot examination Diabetic Foot Exam [facility] Start: 10-27-2023 Urine screening for protein Urine Microalbumin [facility] Start: 11-29-2021 [facility] Start: 11-29-2021 [facility] Start: 11-29-2021 Incision and drainage of lower extremity OR I&D Exploration Upper/Lower Extremity (Right) [facility] Start: 11-29-2021 End: 11-29-2021 Admission to same day surgery center Below knee amputation [facility]gery [facility] Start: 11-03-2021 [facility] Start: 11-03-2021 [facility] Start: 11-03-2021 Amputation of right lower limb OR Leg Amputation Above/Below (Right) [facility] Start: 11-03-2021 End: 11-03-2021 Admission to same day surgery center Departed Surgical Day Care [facility]-Surgery [facility] Start: 11-02-2021 End: 11-02-2021 Patient encounter procedure Departed Clinical [facility]-Pre-Surgical Testing Start: 11-01-2021 End: 11-01-2021 Emergency department patient visit Departed Emergency [facility]-Emergency Room Start: 10-27-2021 [facility] Work Phone: Start: 10-21-2021 Hospital admission [facility] Work Phone: Start: 10-21-2021 Referral to clinical phone circuit operator [facility] Work Phone: Start: 10-21-2021 [facility] Work Phone: Start: 10-18-2021 Referral to clinical phone circuit operator [facility] Work Phone: Start: 10-18-2021 Detachment at Right Lower Leg, Mid, Open Approach Detachment at Right Lower Leg, Mid, Open Approach [facility] Start: 10-17-2021 [facility] Work Phone: Start: 10-14-1975 Adult BMI Follow Up Plan Adult BMI Follow Up Plan [facility] Patient Education [facility] Work Phone: Patient referral [facility] Work Phone: SARS-CoV-2 (COVID-19 ) N gene [Presence] in Respiratory specimen by MEREDITH with probe detection [facility] Work Phone: Immunizations Immunization Date Immunization Notes Care Provider Fa cili 03-12-2023 Covid-19,mrna, Lnp-s , Pf, 50mcg/0.5ml 12+ Terry Lock PRINCIPAL SOFTWARE ENGINEER-FARM EQUIPMENT TECHNICIAN Work Phone: [facility] 03-12-2023 Influenza Vaccine, Quadrivalent, Adjuvanted Terry Lock PRINCIPAL SOFTWARE ENGINEER-FARM EQUIPMENT TECHNICIAN Work Phone: [facility] 03-12-2023 RSV, mAb, nirsevimab-alip, 1 mL, to 24 months Terry Lock PRINCIPAL SOFTWARE ENGINEER-FARM EQUIPMENT TECHNICIAN Work Phone: [facility] 03-12-2023 RSV, recombinant, protein subunit RSVpreF, adjuvant reconstituted, 0.5 mL, PF Terry Lock PRINCIPAL SOFTWARE ENGINEER-FARM EQUIPMENT TECHNICIAN Work Phone: [facility] 06-14-2022 zoster vaccine recombinant Terry Lock PRINCIPAL SOFTWARE ENGINEER-FARM EQUIPMENT TECHNICIAN Work Phone: [facility] 04-15-2022 Covid-19, Mrna, Lnp- s, Bivalent, Pf, 50mcg/0.5ml or 25mcg/0.25ml Terry Lock PRINCIPAL SOFTWARE ENGINEER-FARM EQUIPMENT TECHNICIAN Work Phone: [facility] 04-15-2022 zoster vaccine recombinant Terry Lock PRINCIPAL SOFTWARE ENGINEER-FARM EQUIPMENT TECHNICIAN Work Phone: [facility] 04-11-2022 Influenza, High-dose , Quadrivalent Terry Lock PRINCIPAL SOFTWARE ENGINEER-FARM EQUIPMENT TECHNICIAN Work Phone: [facility] 03-01-2021 COVID-19 mRNA-1273 (Moderna) DO Deon Braxton Work Phone: [facility] 03-01-2021 Seasonal, quadrivale nt, recombinant, injectable influenza vaccine, preservative free Terry Lock PRINCIPAL SOFTWARE ENGINEER-FARM EQUIPMENT TECHNICIAN Work Phone: [facility] 06-25-2020 COVID-19 mRNA-1273 (Moderna) DO Deon Braxton Work Phone: [facility] 05-28-2020 COVID-19, mRNA, LNP- S, PF, 100mcg/0.5mL Dose Terry Leo PRINCIPAL SOFTWARE ENGINEER-FARM EQUIPMENT TECHNICIAN Work Phone: [facility] 05-25-2020 COVID-19, mRNA, LNP- S, PF, 100mcg/0.5mL Dose Terry Leo PRINCIPAL SOFTWARE ENGINEER-FARM EQUIPMENT TECHNICIAN Work Phone: [facility] 01-14-2020 influenza, seasonal, injectable Terry Lock PRINCIPAL SOFTWARE ENGINEER-FARM EQUIPMENT TECHNICIAN Work Phone: [facility] 12-30-2019 influenza, injectabl e, quadrivalent, preservative free Terry Lock PRINCIPAL SOFTWARE ENGINEER-FARM EQUIPMENT TECHNICIAN Work Phone: [facility] 04-07-2019 Influenza, injectabl e, Madin [place] Canine Kidney, preservative free, quadrivalent Terry Lock PRINCIPAL SOFTWARE ENGINEER-FARM EQUIPMENT TECHNICIAN Work Phone: [facility] 12-31-2018 pneumococcal conjuga te vaccine, 13 valent Terry Lock PRINCIPAL SOFTWARE ENGINEER-FARM EQUIPMENT TECHNICIAN Work Phone: [facility] 01-23-2018 influenza, injectabl e, quadrivalent, contains preservative Terry Lock PRINCIPAL SOFTWARE ENGINEER-FARM EQUIPMENT TECHNICIAN Work Phone: [facility] 01-23-2018 influenza, injectabl e, quadrivalent, preservative free Terry Lokc PRINCIPAL SOFTWARE ENGINEER-FARM EQUIPMENT TECHNICIAN Work Phone: [facility] 02-05-2017 influenza, injectabl e, quadrivalent, preservative free Terry Lock PRINCIPAL SOFTWARE ENGINEER-FARM EQUIPMENT TECHNICIAN Work Phone: [facility] 02-05-2017 pneumococcal conjuga te vaccine, 13 valent Terry Lock PRINCIPAL SOFTWARE ENGINEER-FARM EQUIPMENT TECHNICIAN Work Phone: [facility] 01-14-2017 influenza, injectabl e, quadrivalent, contains preservative Terry Lock PRINCIPAL SOFTWARE ENGINEER-FARM EQUIPMENT TECHNICIAN Work Phone: [facility] 01-14-2016 tetanus toxoid, redu joseph diphtheria toxoid, and acellular pertussis vaccine, adsorbed Terry Lock PRINCIPAL SOFTWARE ENGINEER-FARM EQUIPMENT TECHNICIAN Work Phone: [facility] 01-02-2016 influenza virus vacc ine, unspecified formulation Terry Lock PRINCIPAL SOFTWARE ENGINEER-FARM EQUIPMENT TECHNICIAN Work Phone: [facility] 08-13-2015 zoster vaccine, live Terry Lock PRINCIPAL SOFTWARE ENGINEER-FARM EQUIPMENT TECHNICIAN Work Phone: [facility] 12-22-2014 influenza, seasonal, injectable, preservative free Terry Lock PRINCIPAL SOFTWARE ENGINEER-FARM EQUIPMENT TECHNICIAN Work Phone: [facility] 01-26-2014 pneumococcal conjuga te vaccine, 13 valent Terry Lock PRINCIPAL SOFTWARE ENGINEER-FARM EQUIPMENT TECHNICIAN Work Phone: [facility] 01-12-2014 influenza, seasonal, injectable Terry Lock PRINCIPAL SOFTWARE ENGINEER-FARM EQUIPMENT TECHNICIAN Work Phone: [facility] 01-12-2014 Seasonal trivalent influenza vaccine, adjuvanted, preservative free Terry Lock PRINCIPAL SOFTWARE ENGINEER-FARM EQUIPMENT TECHNICIAN Work Phone: [facility] 09-17-2012 pneumococcal polysaccharide vaccine, 23 valent Terry Lock PRINCIPAL SOFTWARE ENGINEER-FARM EQUIPMENT TECHNICIAN Work Phone: [facility] 09-17-2012 pneumococcal vaccine , unspecified formulation Terry Lock PRINCIPAL SOFTWARE ENGINEER-FARM EQUIPMENT TECHNICIAN Work Phone: [facility] Payers Date Payer Category Payer Medicare [employer]M MEDICARE [employer] ADV[employer]AGE [id number] 2023-[facility] [phone] [address] [place] [address] [id number] 2023 Medicare [id number] 2022 Self-pay [id number] 2022 Medicare [id number] 2021 Unknown 1957 Unknown [id number] 2.16.840.1.629601.3.579.2.196 1957 Unknown [id number] 2.16.840.1.378141.3.579.2.196 1957 Unknown [id number] 2.16.840.1.679848.3.579.2.196 1957 Unknown [id number] 2.16.840.1.314312.3.579.2.196 1957 Unknown [id number] 2.16.840.1.460548.3.579.2.593 1957 Unknown [id number] 2.16.840.1.656760.3.579.2.593 1957 Unknown [id number] 2.16.840.1.985992.3.579.2.593 1957 Unknown [id number] 2.16.840.1.083938.3.579.2.593 1957 Unknown [id number] 2.16.840.1.433054.3.579.2.593 1957 Unknown [id number] 2.16.840.1.316570.3.579.2.593 1957 Unknown [id number] 2.16.840.1.172905.3.579.2.593 1957 Unknown [id number] 2.16.840.1.854782.3.579.2.593 1957 Unknown [id number] 2.16.840.1.077689.3.579.2.593 1957 Unknown [id number] 2.16.840.1.466558.3.579.2.593 1957 Unknown [id number] 2.16.840.1.386776.3.579.2.593 1957 Unknown [id number] 2.16.840.1.146119.3.579.2.593 1957 Unknown [id number] 2.16.840.1.761250.3.579.2.593 1957 Unknown [id number] 2.16.840.1.313692.3.579.2.593 1957 Unknown [id number] 2.16.840.1.636904.3.579.2.593 1957 Unknown [id number] 2.16.840.1.028371.3.579.2.59 1957 Unknown [id number] 2.16.840.1.045064.3.579.2.593 1957 Unknown [id number] 2.16.840.1.516991.3.579.2. 1957 Unknown [id number] 2.16.840.1.518212.3.579.2.593 1957 Unknown [id number] 2.16.840.1.720758.3.579.2.3 1957 Unknown [id number] 2.16.840.1.222648.3.579.2.593 1957 Unknown [id number] 2.16.840.1.995977.3.579.2.59 1957 Unknown [id number] 2.16.840.1.566034.3.579.2.593 1957 Unknown [id number] 2.16.840.1.729122.3.579.2.593 1957 Unknown [id number] 2.16.840.1.998548.3.579.2.593 1957 Unknown [id number] 2.16.840.1.477309.3.579.2.593 1957 Unknown [id number] 2.16.840.1.646469.3.579.2.593 1957 Unknown [id number] 2.16.840.1.902994.3.579.2.593 1957 Unknown [id number] 2.16.840.1.474400.3.579.2.593 1957 Unknown [id number] 2.16.840.1.287667.3.579.2.593 1957 Unknown [id number] 2.16.840.1.499841.3.579.2.59 1957 Unknown [id number] 2.16.840.1.458445.3.579.2.593 1957 Unknown [id number] 2.16.840.1.638741.3.579.2. 1957 Unknown [id number] 2.16.840.1.092314.3.579.2.593 1957 Unknown [id number] 2.16.840.1.814160.3.579.2.593 1957 Unknown [id number] 2.16.840.1.436007.3.579.2.593 1957 Unknown [id number] 2.16.840.1.860232.3.579.2.593 1957 Unknown [id number] 2.16.840.1.952606.3.579.2.593 1957 Unknown [id number] 2.16.840.1.715776.3.579.2.593 1957 Unknown [id number] 2.16.840.1.318514.3.579.2.593 1957 Unknown [id number] 2.16.840.1.469224.3.579.2.59 1957 Unknown [id number] 2.16.840.1.852681.3.579.2.593 1957 Unknown [id number] 2.16.840.1.473760.3.579.2.593 1957 Unknown [id number] 2.16.840.1.409416.3.579.2.593 1957 Unknown [id number] 2.16.840.1.175178.3.579.2.59 1957 Unknown [id number] 2.16.840.1.751781.3.579.2.59 1957 Unknown [id number] 2.16.840.1.712794.3.579.2.59 1957 Unknown [id number] 2.16.840.1.716246.3.579.2.59 1957 Unknown [id number] 2.16.840.1.902529.3.579.2.59 1957 Unknown [id number] 2.16.840.1.799317.3.579.2.59 1957 Unknown [id number] 2.16.840.1.804241.3.579.2.593 1957 Unknown [id number] 2.16.840.1.487964.3.579.2.59 1957 Unknown [id number] 2.16.840.1.555077.3.579.2.593 1957 Unknown [id number] 2.16.840.1.050271.3.579.2.593 1957 Unknown [id number] 2.16.840.1.745482.3.579.2.59 1957 Unknown [id number] 2.16.840.1.264122.3.579.2.59 1957 Unknown [id number] 2.16.840.1.268968.3.579.2.593 1957 Unknown [id number] 2.16.840.1.723633.3.579.2.593 1957 Unknown [id number] 2.16.840.1.201423.3.579.2.128 1957 Unknown [id number] 2.16.840.1.136690.3.579.2.125 1957 Unknown [id number] 2.16.840.1.346146.3.579.2.1258 1957 Unknown [id number] 2.16.840.1.554579.3.579.2.1258 1957 Unknown [id number] 2.16.840.1.038838.3.579.2.1258 1957 Unknown [id number] 2.16.840.1.636239.3.579.2.1258 1957 Unknown [id number] 2.16.840.1.127002.3.579.2.1258 1957 Unknown [id number] 2.16.840.1.182991.3.579.2.1258 1957 Unknown [id number] 2.16.840.1.105061.3.579.2.1285 1957 Unknown [id number] 2.16.840.1.049916.3.579.2.1285 1957 Unknown [id number] 2.16.840.1.544212.3.579.2.1285 1957 Unknown [id number] 2.16.840.1.412706.3.579.2.1285 1957 Unknown [id number] 2.16.840.1.339774.3.579.2.1285 1957 Unknown [id number] 2.16.840.1.417855.3.579.2.1286 1957 Unknown [id number] 2.16.840.1.413708.3.579.2.1286 1957 Unknown [id number] 2.16.840.1.737722.3.579.2.1286 1957 Unknown [id number] 2.16.840.1.394225.3.579.2.1286 Medicare [id number] 2.16840.1.102366.19 Unknown O [id number] Unknown [id number] Unknown [id number] 2.16.840.1.594384.3.579.2.531 Unknown [id number] 2..840.1.404545.3.579.2.531 Social History Date Type Detail Facility Unknown if ever smoked [employer] Other Start: 04-11-2022 End: 04-12-2023 Sex Assigned At [facility] Start: 10-19-2021 End: 01-18-2022 Tobacco smoking status NHIS Never smoked tobacco (finding) [facility] Start: 1955 Sex Assigned At Male [facility] Start: 01-18-2022 Tobacco use and exposure Smokeless tobacco non-user [facility] Start: 04-12-2023 Alcohol intake Current drinker of alcohol (finding) [facility] Start: 04-11-2022 End: 04-12-2023 History of Social function [facility] Do you belong to any clubs or organizations such as gnosticist groups, unions, fraternal or athletic groups, or school groups? No [facility] Are you now , , , , never or living with a partner? [facility] How often to you hav e a drink containing alcohol? 2-4 times a month [facility] How many standard dr inks containing alcohol do you have on a typical day? 1 or 2 [facility] [employer] [facility] How often do you hav e 6 or more drinks on 1 occasion? Never [facility] How hard is it for y ou to pay for the very basics like food, housing, medical care, and heating Somewhat hard [facility] Adolescent depressio n screening assessment 0 [facility] Do you feel stress - tense, restless, nervous, or anxious, or unable to sleep at night because your mind is troubled all the time - these days [OSQ] Not at all [email or web address] Start: 04-11-2022 Education 21 [employer] Start: 09-10-2019 Alcohol Comment social [email or web address] Start: 1955 Sex Assigned At Not on file [employer] [facility] Medical Equipment Procedure Code Equipment Code Equipment Origin al Text Equipment Identifier Dates Gft Hmn Tiss 250 mg Amniofill - [id number] - [id number] Start: 12-27-2018 Gft Sft Tis Matr istem - [id number] - [id number] Start: 01-27-2019 Tiss Grafix Prim e 3x4cm - [id number] - [id number] Start: 09-15-2019 Evera Mri Xt Vr Defibrillator [id number] Start: 07-13-2015 Sprint Quattro S ecure Mri [id number] Start: 07-13-2015 Tissue Epifix 2x 4 Cm - [id number] - [id number] Start: 12-27-2018 USE DIRECTED FOUR TIMES DAILY [id number] Start: 08-07-2022 Goals Date Patient Goal Desired Activity /State Personal health goal Comment on above: Formatting of this n ote might be different from the original. Evaluation of progress towards goal: Safe dc transition from hospital to home with family support. Resume with [facility]. Personal health goal Comment on above: Formatting of this n ote might be different from the original. Evaluation of progress towards goal: Pt plans to discharge home with [facility]. Functional Status Date Assessment Result Facility 10-27-2021 Functional status Patient is Pro gressing Toward Baseline [facility] Work Phone: 10-21-2021 Functional status Patient is Pro gressing Toward Baseline [facility] [facility] Work Phone: 10-18-2021 Functional status Patient at [facility] Work Phone: Mental Status Date Assessment Result Facility 10-27-2021 Cognitive function Cognitive Sta tus Patient at Baseline [facility] Work Phone: 10-21-2021 Cognitive function Cognitive Sta tus Patient is Progressing Toward Baseline [facility] Work Phone: 10-18-2021 Cognitive function Cognitive Sta tus Patient at Baseline [facility] Work Phone: Clinical Notes 01-05-2021 to 04-12-2023 Terry Lock, PRINCIPAL SOFTWARE ENGINEER-[facility] - 04/12/2023 11:30 AM [facility] [...] [facility] [place]) Coronary artery disease involving [place] coronary artery of [place] heart without angina pectoris Hearing loss Personal [...] reaction(s): Chest Pain Chlorpheniramine Dextromethorphan Hbr Itching Yqoyfcdtl-Xb-Dpwdcpqgtsoks Guaifenesin Other reaction(s): Itching of skin Hydrocodone [...] morning. 90 tablet 1 flash glucose sensor (Mercateo LELO 2 SENSOR) kit CHANGE EVERY 2 [...] infarction ([facility]) 2015 x 5 stents Stage 3b chronic kidney disease ([facility]) 04/22/2020 Unilateral complete AKA, right ([facility]) 03/31/2022 No data recorded No data recorded No data recorded Past Surgical History: Procedure Laterality Date ANKLE LIGAMENT RECONSTRUCTION Right 2020 APPLICATION AMNIOFILL Right 12/27/2018 Performed by Arlen Olguin DPM at [facility] APPLICATION WOUND VAC ( NOT done) Right 01/27/2019 Performed by Terry Hector DPM at [facility] CARDIAC DEFIBRILLATOR PLACEMENT 07/13/2015 [employer] COLONOSCOPY N/A 04/07/2020 Performed by Deon Braxton DO at [facility] DEBRIDEMENT FOOT EXCISION RT FOOT ULCER, APPLICATION BIOLOGIC SKIN GRAFT RT FOOT, APPLICATION OF WOUND VAC RT FOOT Right 01/27/2019 Performed by Terry Hector DPM at [facility] DEBRIDEMENT FOOT WITH APPLICATION OF GRAFIX Right 09/15/2019 Performed by Terry Hector DPM at [facility] ESOPHAGOGASTRODUODENOSCOPY N/A 05/19/2020 Performed by Deon Braxton DO at [facility] EXCISION 5TH METATARSAL Right 12/30/2018 Performed by Terry Hector DPM at [facility] FINGER SURGERY FOOT SURGERY 07/2020 [facility] Bilateral LAPAROSCOPIC CHOLECYSTECTOMY N/A 06/21/2020 Performed by Deon Justice MD at [facility] LENGTHENING TENDON RIGHT, PLANTAR FASCIOTOMY Right 09/15/2019 Performed by Terry Hector DPM at [facility] SKIN GRAFT LOWER EXTREMITY (APPLICATION OF BIOLOGIC SKIN GRAFT RT FOOT Right 01/27/2019 Performed by Terry Hector DPM at [facility] Family History Problem Relation Age of [...] min Stress: No Stress Concern Present (04/11/2022) [employer] - Occupational Stress Questionnaire Feeling of Stress : Not at all Social Connections: Moderately Integrated (04/11/2022) Social Connection and Isolation Panel [NHANES] Frequency of Communication with Friends and Family: Twice a week Frequency of Social Gatherings with Friends and Family: Twice a week Attends [employer] Services: 1 to 4 times per year [...] Verbalized understanding 2. Coronary artery disease involving [place] coronary artery of [place] heart without angina pectoris -aspirin, statin, beta-doreen [...] Referring Physician: Deon Braxton DO [address] [place] [address] FANNY Owens 04/12/23 1145 Office note faxed to Dr Lee for clearance documented in this encounter [facility] 12-05-2022 Evaluation note Encounter Date Diagnosis Assessment Notes Dec, Charcot foot due to diabetes mellitus (ICD-10 - E11.610) Dec, Status post transmetatarsal amputation of left foot (ICD-10 - Z89.432) as above, RX written. Dec, Hx of right BKA (ICD-10 - Z89.511) [facility] Other 07-06-2023 Evaluation note* Encounter Date Diagnosis [...] months. Sep, Peripheral polyneuropathy (ICD-10 - G62.9) [facility] Other 05-03-2023 Evaluation note* Encounter Date Diagnosis [...] elsewhere classified, subsequent encounter (ICD-10 - T81.31XD) [facility] Other 03-03-2023 Evaluation note* Encounter Date Diagnosis [...] this time. Patient is following up at [facility] for changes to prosthetic. I did recommend use of a cane to help offload some weight which may reduce his pain. Patient voiced understanding and states no further questions at this time. May, Other specified postprocedural states (ICD-10 - Z98.890) May, Postoperative wound dehiscence, initial encounter (ICD-10 - T81.31XA) [facility] Other 01-27-2023 Evaluation note* Encounter Date Diagnosis [...] wound dehiscence, initial encounter (ICD-10 - T81.31XA) [facility] Other 01-11-2023 Evaluation note* Encounter Date Diagnosis [...] wound dehiscence, initial encounter (ICD-10 - T81.31XA) [facility] Other 12-14-2022 Evaluation note* Encounter Date Diagnosis [...] wound dehiscence, initial encounter (ICD-10 - T81.31XA) [facility] Other 11-08-2022 Evaluation note* Encounter Date Diagnosis Assessment Notes Treatment Notes Treatment Clinical Notes Jan, Right below-knee amputee (ICD-10 - Z89.511) Proceed with K3 level, transtibial prosthesis, preparatory. Diligent monitoring of residual limb. Stop wearing prosthesis immediately if wound should worsen, develop erythema, increased pain, etc. Wearing schedule. [facility] Other 11-04-2022 Evaluation note* Encounter Date Diagnosis [...] wound dehiscence, initial encounter (ICD-10 - T81.31XA) [facility] Other 10-21-2022 Evaluation note* Encounter Date Diagnosis [...] wound dehiscence, initial encounter (ICD-10 - T81.31XA) [facility] Other 10-07-2022 Evaluation note* Encounter Date Diagnosis [...] wound dehiscence, initial encounter (ICD-10 - T81.31XA) [facility] Other 09-23-2022 Evaluation note* Encounter Date Diagnosis [...] wound dehiscence, initial encounter (ICD-10 - T81.31XA) [facility] Other 09-14-2022 Evaluation note* Encounter Date Diagnosis [...] wound dehiscence, initial encounter (ICD-10 - T81.31XA) [facility] Other 09-09-2022 Evaluation note* Encounter Date Diagnosis [...] infectious disease. Faxed wound center information to [phone] and left a voicemail. Dec, Other specified postprocedural states (ICD-10 - Z98.890) Dec, Postoperative wound dehiscence, initial encounter (ICD-10 - T81.31XA) [facility] Other 08-30-2022 History and physical note Author Reddy Brandt [facility] November 29, 2021 11:49am Note Date/Time November 29, 2021 11 :32am [facility] [address] [place] [address] Orthopedic Surgery H&P Signed Patient: Anai Goodman MR#: [id number] : 1955 Acct:[id number] Age/Sex: 66 / M Adm Date: 2 Loc: ID Room: Type: [facility] Attending Dr: Reddy Brandt [...] I have advised against the long term acute care registered nurse use of narcotic pain medication. I have advised to follow all post-operative instructions in order to obtain the best outcome. Informed consent has been verbally affirmed and signed as indicated. Documented By: Reddy Brandt DO 11/29/21 1129 Signed By: <Electronically signed by Reddy Brandt DO> 11/29/21 1147 [facility] Work Phone: 1(967) 301-875908-29-2022 Evaluation note* Encounter Date Diagnosis Assessment Notes [...] remova l of sutures (ICD-10 - Z48.02) [facility] Other 08-03-2022 Evaluation note* Encounter Date Diagnosis [...] was in understanding and wishes to proceed. [facility] Other 08-01-2022 Evaluation note* Encounter Date Diagnosis [...] move forward with treatment at this time. [facility] Other 07-27-2022 Progress note Author Ghanshyam Kaye [facility] October 25, 2021 11:37pm Note Date/Time October 25, 2021 11:3 7pm [facility] [address] [place] [address] Physiatry(Rehab) Progress Note Signed Patient: Anai Goodman MR#: [id number] : 1955 Acct:[id number] Age/Sex: 66 / M Adm Date: 2 Loc: Room: 7E7845-4 Type : ADM IN Attending Dr: Ghanshyam Kaye MD Copies to: ~ Date of Service: 10/25/2021 Subjective Subjective Narrative: Mr. Goodman is a 66 year old male who is admitted to [facility] inpatient rehab for strengthening [...] % (Auto) 69.1 Lymph % (Auto) 9.4 [place] % (Auto) 14.5 Eos % (Auto) 6.7 Baso % (Auto) 0.3 Neut # (Auto) 4.0 Lymph # (Auto) 0.5 L [place] # (Auto) 0.8 Eos # (Auto) 0.4 [...] MPV Neut % (Auto) Lymph % (Auto) [place] % (Auto) Eos % (Auto) Baso % (Auto) Neut # (Auto) Lymph # (Auto) [place] # (Auto) Eos # (Auto) Baso # [...] Ml Insuln.Pen SUBCUT 10/21/22 16:59 Not Given TID.WITH.MEALS.[facility] Protocol Insulin Detemir 40 units 10/21/21 [...] equipment to enhance the patient's a functional judaism Ensure adequate nutrition and hydration Sleep: Denies any issues Pain: Denies any issues Discharge planning: Home with in 7 to 10 days. I spent greater than 25 minutes for services, including xask-pi-nlub encounter with the patient, discussion of the case, plan of care, and exam; and zjlsdjb-im-lyaq activities, such as reviewing pertinent analytics consultant documentation, recent therapy notes, laboratory and radiology studies, and discussionof case with care team including nursing, senior case manager, and therapists. More than 50 % of time was spent on patient/family counseling or coordination ofcare. Documented By: Ghanshyam Kaye MD 10/25/212333 Signed By: <Electronically signed by Ghanshyam Kaye MD> 10/25/212336 [facility] Work Phone: 1(107) 837-267207-26-2022 Progress note Author Ghanshyam Kaye [facility] October 25, 2021 10:20am Note Date/Time October 23, 2021 11:5 7am [facility] [address] [place] [address] Physiatry(Rehab) Progress Note Signed Patient: Anai Goodman MR#: [id number] : 1955 Acct:[id number] Age/Sex: 66 / M Adm Date: 2 Loc: Room: [address] [place] [address] Type : ADM IN Attending Dr: Ghanshyam Kaye MD Copies to: ~ <Chante Narayan APRN - Last Filed: 10/23/21 11:57> Date of Service: 10/23/2021 Subjective <Chante Narayan APRN - Last Filed: 10/23/21 11:57> Subjective Narrative: Mr. Goodman is a 66 year old male who is admitted to [facility] inpatient rehab for strengthening [...] Asking about discharge, wants to talk to transplant case manager about insurance coverage, but thinks [...] complaints, except as documented Exam <Chante Narayan, PRINCIPAL SOFTWARE ENGINEER - Last Filed: 10/23/21 11:57> Physical Exam [...] Tablet PO 10/21/22 21:59 100 mg QHS [facility] Administration Atorvastatin Calcium 80 mg 10/22/21 [...] Tablet PO 10/21/22 20:59 6.25 mg BID [facility] Administration Docusate Sodium 100 mg 10/21/21 17:51 Docusate 100 Mg Capsule PO 10/21/22 17:50 BID PRN Constipation Docusate Sodium 283 mg 10/21/21 17:51 Docusate Enema 283 Mg/5 Ml Enema VT 10/21/22 17:50 DAILY PRN Constipation Insulin Aspart 0 units 10/21/21 17:00 10/23/21 09:05 Insulin Aspart 300 Units/3 Ml Insuln.Pen SUBCUT 10/21/22 16:59 1 units TID.WM.[facility] Administration Protocol Insulin Aspart 0 units 10/21/21 17:00 10/23/21 09:06 Insulin Aspart 300 Units/3 Ml Insuln.Pen SUBCUT 10/21/22 16:59 4 units TID.WITH.MEALS.[facility] Administration Protocol Insulin Detemir 40 units 10/21/21 22:00 10/22/21 20:27 Insulin Detemir 300 Units/3 Ml Insuln.Pen SUBCUT 10/21/22 21:59 40 units QHS [facility] Administration Lactulose 30 gm 10/21/21 17:51 Lactulose [...] Tablet PO 10/22/22 08:59 25 mg QAM [facility] Administration Vitamin D 250 mcg 10/21/21 21:00 10/23/21 09:07 Cholecalciferol 125 Mcg (5,000 Units) Tablet PO 10/21/22 20:59 250 mcg BID CB Administration Assessment/Plan <Chante Narayan, PRINCIPAL SOFTWARE ENGINEER - Last Filed: 10/23/21 11:57> Assessment/Plan (1) [...] equipment to enhance the patient's a functional judaism Ensure adequate nutrition and hydration Sleep: Denies any issues Pain: Denies any issues Discharge planning: Home with in 7 to 10 days. I spent greater than 15 minutes for services, including tiwv-iu-wrzl encounter with the patient, discussion of the case, plan of care, and exam; and panaqqz-hy-uvti activities, such as reviewing pertinent analytics consultant documentation, recent therapy notes, laboratory and radiology studies, and discussion of case with care team including physician, nursing, senior case manager, and therapists. More than 50 [...] the chart, including currentorders, allied health and analytics consultant notes, labs/imaging and plan of care as above. Documented By: Chante Narayan APRN 10/23/21 1 150 Signed By: <Electronically signed by KRUNAL Narayan> 10/23/21 1157 <Electronically signed by Ghanshyam Kaye MD> 10/25/21 1020 [facility] Work Phone: 1(797) 365-148107-26-2022 History and physical note Author Ghanshyam Kaye [facility] October 25, 2021 9:36am Note Date/Time October 22, 2021 9:59 am [facility] [address] [place] [address] Physiatry (Rehab) H&P Signed Patient: Anai Goodman MR#: [id number] : 1955 Acct:[id number] Age/Sex: 66 / M Adm Date: 2 Loc: Room: [address] [place] [address] Type : ADM IN Attending Dr: Ghanshyam Kaye MD Copies to: KRUNAL Mendez DO Joseph Riley, MD~ <Chante Narayan APRN - Last Filed: 10/22/21 10:24> Date of Service: 10/22/2021 HPI <Chante Narayan APRN - Last Filed: 10/22/21 10:24> The patient was seen and examined on: 10/21/21 History of Present Illness: Mr. Goodman is a 66 year old male who is admitted to [facility] inpatient rehab for strengthening [...] with one-step to enter. PMFSH <Chante Narayan, PRINCIPAL SOFTWARE ENGINEER - Last Filed: 10/22/21 10:24> Vaccinated for [...] 300 Units/3 Ml Insuln.Pen) 0 units SUBCUT TID.WM.[facility]; Protocol Stop: 10/21/22 16:59 Last Admin: 10/22/21 08:01 Dose: 1 units Insulin Aspart (Insulin Aspart 300 Units/3 Ml Insuln.Pen) 0 units SUBCUT TID.WITH.MEALS.[facility]; Protocol Stop: 10/21/22 16:59 Last Admin: 10/22/21 08:01 Dose: 4 units Insulin Detemir (Insulin Detemir 300 Units/3 Ml Insuln.Pen) [facility] Stop: 10/21/22 21:59 Last Admin: 10/21/21 22:02 Dose: 40 units Lactulose (Lactulose 20 Gm/30 Ml Udc) 30 gm PO DAILY PRN PRN Reason: Constipation Stop: 10/21/22 17:50 Losartan Potassium (Losartan 25 Mg Tablet) 25 mg PO QAM [facility] Stop: 10/22/22 08:59 Last Admin: 10/22/21 08:05 Dose: 25 mg Magnesium Oxide (Magnesium Oxide 400 Mg Tablet) 400 mg PO [facility] Stop: 10/22/22 08:59 Last Admin: 10/22/21 08:05 Dose: 400 mg Multivitamins (Multivitamin 1 Tab Tablet) 1 tab PO QAM [facility] Stop: 10/22/22 08:59 Last Admin: 10/22/21 08:05 Dose: 1 tab Nitroglycerin (Nitroglycerin 0.4 Mg Tab.Subl) 0.4 mg SUBLINGUAL DAILY PRN PRN Reason: Chest Pain Stop: 10/21/22 15:49 Rivaroxaban (Rivaroxaban 10 Mg Tablet) 10 mg PO DAILY [facility] Stop: 10/22/22 08:59 Last Admin: 10/22/21 08:06 Dose: 10 mg Fluticasone/Salmeterol (Fluticasone/Salmeterol 232-14 Mcg 60 Puff Inhaler) 1 puff INHALATION BID [facility] Stop: 10/21/22 20:59 Last Admin: 10/22/21 05:10 Dose: 1 puff Sennosides (Sennosides 8.6 Mg Tablet) 2 tab PO DAILY@12 PRN PRN Reason: If no BM in 2 days Stop: 10/22/22 11:59 Sodium Chloride (Sodium Chloride 0.9 % 10 Ml Syringe) 0 ml IV-PUSH PRN PRN PRN Reason: Flush Stop: 10/21/22 17:50 Spironolactone (Spironolactone 25 Mg Tablet) 25 mg PO QAM [facility] Stop: 10/22/22 08:59 Last Admin: 10/22/21 08:05 Dose: 25 mg Vitamin D (Cholecalciferol 125 Mcg (5,000 Units) Tablet) 250 mcg PO BID [facility] Stop: 10/21/22 20:59 Last Admin: 10/22/21 [...] good Judgment: judgment good Results <Chante Narayan, PRINCIPAL SOFTWARE ENGINEER - Last Filed: 10/22/21 10:24> Labs Labs: Laboratory Results - last 24 hr 10/21/21 10/22/21 10/22/21 20:20 05:59 06:19 Corrected WBC 6.6 Uncorrected WBC Count 6.6 RBC 3.99 Hgb 11.8 L Hct 34.6 L MCV 86.7 MCH 29.5 MCHC 34.0 RDW 17.8 H Plt Count 148 L MPV 8.8 Neut % (Auto) 70.1 Lymph % (Auto) 10.0 [place] % (Auto) 14.8 Eos % (Auto) 4.5 Baso % (Auto) 0.6 Neut # (Auto) 4.6 Lymph # (Auto) 0.7 L [place] # (Auto) 1.0 H Eos # (Auto) [...] MPV Neut % (Auto) Lymph % (Auto) [place] % (Auto) Eos % (Auto) Baso % (Auto) Neut # (Auto) Lymph # (Auto) [place] # (Auto) Eos # (Auto) Baso # [...] Discharge Destination: Home Rehabilitation [facility]: 05.4 Primary Diagnosis: Right BKA Patient?s/Family?s [...] 24 hour daily monitoring and intervention from [employer] as well as other consulting physicians including internal medicine as well as 24 hour daily maintenance journeyman nursing - for medical safe / optimal [...] equipment to enhance the patient's a functional judaism Ensure adequate nutrition and hydration Sleep: Denies any issues Pain: Denies any issues Discharge planning: Home with in 7 to 10 days. I spent greater than 30 minutes for services, including priv-sg-aybj encounter with the patient, discussion of the case, plan of care, and exam; and kvvftjo-bj-cloy activities, such as reviewing pertinent analytics consultant documentation, recent therapy notes, laboratory and radiology studies, and discussion of case with care team including physician, nursing, senior case manager, and therapists. More than 50 [...] Allied health note review, nursing note review, analytics consultant note review, discussion with nursing and [...] chart, including current orders, allied health and analytics consultant notes, labs/imaging and performed rosado elements of exam and I formulated the plan of care and facilitated the medical decision making and confirmed the nurse practitioner note, as above Documented By: Chante Narayan APRN 10/22/21 0 949 Signed By: <Electronically signed by KRUNAL Narayan> 10/22/21 1024 <Electronically signed by Ghanshyam Kaye MD> 10/25/21 0936 [facility] Work Phone: 1(156) 356-648307-24-2022 Progress note Author Bronwyn Alegre [facility] October 23, 2021 3:11pm Note Date/Time October 23, 2021 3:11 pm [facility] [address] [place] [address] Hospitalist Progress Note Signed Patient: Anai Goodman MR#: [id number] : 1955 Acct:[id number] Age/Sex: 66 / M Adm Date: 2 Loc: Room: [address] [place] [address] Type : ADM IN Attending Dr: Ghanshyam [...] Ml Insuln.Pen SUBCUT 10/21/22 16:59 5 units TID.WITH.MEALS.[facility] Administration Protocol Insulin Detemir 40 units [...] after surgery. We will check with Dr. Peerz to see if he would need to be on any. Dr. Perez is off this weekend. I will askednursing staff to check with him on Sunday Chronic conditions: 1.? HTN, HLD, CAD- atorvastatin, Bumetanide, Carvedilol, Losartan, Spironolactone 2.? GRACY on CPAP 3. B3MH-E7x 7.3, continue detemir, SSI 4. CKD 3?trend [...] PCP and out patient providers to obtain [facility] record entirely to follow up on illnesses, symptoms, abnormal findings that I have and have not addressed duringthis encounter and hospitalization in out patient setting. Documented By: Bronwyn Alegre MD 10/23/21 8941 Signed By: <Electronically signed by Bronwyn Alegre MD> 10/23/21 1511 [facility] Work Phone: 1(276) 541-310207-24-2022 Consult note Author Bronwyn Alegre [facility] October 23, 2021 7:04am Note Date/Time October 22, 2021 4:18 pm [facility] [address] [place] [address] Hospitalist Consult Note Signed Patient: Anai Goodman MR#: [id number] : 1955 Acct:[id number] Age/Sex: 66 / M Adm Date: 2 Loc: Room: [address] [place] [address] Type : ADM IN Attending Dr: Ghanshyam [...] negative unless noted below or in HPI [facility] Attestation Statement: The following information was validated [...] Ml Insuln.Pen SUBCUT 10/21/22 16:59 2 units TID.WM.[facility] Administration Protocol Insulin Aspart 0 units 10/21/21 17:00 10/22/21 12:46 Insulin Aspart 300 Units/3 Ml Insuln.Pen SUBCUT 10/21/22 16:59 2 units TID.WITH.MEALS.[facility] Administration Protocol Insulin Detemir 40 units 10/21/21 22:00 10/21/21 22:02 Insulin Detemir 300 Units/3 Ml Insuln.Pen SUBCUT 10/21/22 21:59 40 units QHS [facility] Administration Lactulose 30 gm 10/21/21 17:51 Lactulose [...] % (Auto) 70.1, Lymph % (Auto) 10.0, [place] % (Auto) 14.8, Eos % (Auto) 4.5, Baso % (Auto) 0.6, Neut # (Auto) 4.6, Lymph # (Auto) 0.7 L, [place] # (Auto) 1.0 H, Eos # (Auto) [...] Losartan, Spironolactone 2.? GRACY on CPAP 3. I0FU-Q4c 7.3, continue detemir, SSI 4. CKD 3?trend labs Documented By: ABDIRASHID Olmedo 2 1618 Signed By: <Electronically signed by ANP-BC Faviola Matias> 10/22/21 1658 <Electronically signed by Bronwyn Alegre MD> 10/23/21 0704 [facility] Work Phone: 1(730) 131-138007-22-2022 Progress note Author Rodriguez Loera [facility] October 21, 2021 8:37am Note Date/Time October 20, 2021 11:0 8am [facility] [address] [place] [address] Hospitalist Progress Note Signed Patient: Anai Goodman MR#: [id number] : 1955 Acct:[id number] Age/Sex: 66 / M Adm Date: 2 Loc: 4N Room: 0T7910-1 Type : ADM IN Attending Dr: Reddy [...] Lactated Ringers IV 10/18/22 07:29 Not Given .[id number] CB Insulin Aspart 0 units 10/18/21 08:00 [...] Insuln.Pen SUBCUT 10/18/22 21:59 40 units QHS [facility] Administration Losartan Potassium 25 mg 10/19/21 09:00 [...] signed by Rodriguez Loera MD> 10/21/21 0837 [facility] Work Phone: 1(231) 482-350807-21-2022 Progress note Author Rodriguez Loera [facility] October 20, 2021 8:45am Note Date/Time October 19, 2021 11:2 8am [facility] [address] [place] [address] Hospitalist Progress Note Signed Patient: Anai Goodman MR#: [id number] : 1955 Acct:[id number] Age/Sex: 66 / M Adm Date: 2 Loc: 4N Room: [address] [place] [address] Type : ADM IN Attending Dr: Reddy [...] Lactated Ringers IV 10/18/22 07:29 75 mls/hr .[id number] CB Administration Insulin Aspart 0 units 10/18/21 [...] signed by Rodriguez Loera MD> 10/20/21 0845 [facility] Work Phone: 1(163) 376-538907-20-2022 Progress note Author Reddy Brandt [facility] October 19, 2021 12:11pm Note Date/Time October 19, 2021 12:1 1pm [facility] [address] [place] [address] Orthopedic Progress Note Signed Patient: Anai Goodman MR#: [id number] : 1955 Acct:[id number] Age/Sex: 66 / M Adm Date: 2 Loc: 4N Room: [address] [place] [address] Type : ADM IN Attending Dr: Reddy [...] signed by Reddy Brandt DO> 10/19/21 1211 [facility] Work Phone: 1(627) 748-477407-20-2022 Consult note Author Stewart Lucio [facility] October 19, 2021 1:42am Note Date/Time October 19, 2021 1:11 am [facility] [address] [place] [address] Hospitalist Consult Note Signed Patient: Anai Goodman MR#: [id number] : 1955 Acct:[id number] Age/Sex: 66 / M Adm Date: 2 Loc: 4N Room: [address] [place] [address] Type : ADM IN Attending Dr: Reddy [...] negative unless noted in the HPI below [facility] Attestation Statement: The following information was validated [...] Lactated Ringers IV 10/18/22 07:29 75 mls/hr .[id number] CB Administration Cefazolin Sodium 1 gm in [...] Ml Insuln.Pen SUBCUT 10/18/22 07:59 6 units TID.WM.[facility] Administration Protocol Insulin Aspart 0 units 10/18/21 17:00 10/18/21 23:37 Insulin Aspart 300 Units/3 Ml Insuln.Pen SUBCUT 10/18/22 16:59 Not Given TID.WM.[facility] [facility] Insulin Detemir 40 units 10/18/21 22:00 10/18/21 21:39 Insulin Detemir 300 Units/3 Ml Insuln.Pen SUBCUT 10/18/22 21:59 40 units QHS [facility] Administration Losartan Potassium 25 mg 10/19/21 09:00 Losartan 25 Mg Tablet PO 10/19/22 08:59 QAM [facility] Magnesium Oxide 400 mg 10/19/21 09:00 Magnesium Oxide 400 Mg Tablet PO 10/19/22 08:59 QAM [facility] Multivitamins 1 tab 10/19/21 09:00 Multivitamin 1 Tab Tablet PO 10/19/22 08:59 QAM [facility] Nitroglycerin 0.4 mg 10/18/21 15:44 Nitroglycerin [...] 60 Puff Inhaler INHALATION 10/19/22 08:59 BID [facility] Sodium Chloride 0 ml 10/18/21 14:00 [...] signed by Stewart Lucio MD> 10/19/21 0142 [facility] Work Phone: 1([phone]) 895-568907-13-2022 Evaluation note* Encounter Date Diagnosis Assessment Notes [...] osteomyelitis of right tibia (ICD-10 - M86.661) [employer] Other 07-07-2022 Evaluation note* Encounter Date Diagnosis Assessment Notes Treatment Notes Treatment Clinical Notes Sep, Other chronic osteomyelitis of right tibia (ICD-10 - M86.661) [employer] Other 07-07-2022 Evaluation note* Encounter Date Diagnosis [...] place his pacemaker into MRI mode. Anyway pharmacy technician assistant was very helpful and she is going [...] worse they are to call me WALT. [employer] Other 06-09-2022 Evaluation note* Encounter Date Diagnosis [...] to a suppressive dose at that time [employer] Other 11-23-2021 NoteChief Complaint Basal cell carcinoma [...] 03/03/2021 PATIENT : 1955 LOCATION OF PROCEDURE: [facility] SURGEON: Chirag Gutierrez DO INFORMED CONSENT: Obtained by and on file at [facility] CC: [Basal cell carcinoma left ear [...] get a repeat audiogr (more content not included)...[facility]10-11-2021 NoteChief Complaint Open wound Left ear History of Present Illness PLANNED PROCEDURE: Excision and preparation of surgical site, complex plastics myocutaneous advancement flap tear of left ear defect DATE OF PROCEDURE: 01/11/2021 PATIENT : 1955 LOCATION OF PROCEDURE: [facility] SURGEON: Chirag Gutierrez DO INFORMED CONSENT: Obtained by and on file at [facility] CC: Basal cell carcinoma left ear [...] reconstruction amputation of le (more content not included)...[facility] 01-05-2021 NoteChief Complaint MOHs procedure [...] Dr. Freed. Previous pathology by physician in [place] about 1 year ago. PMHx of multiple [...] This patient presented to the [facility] with a chief concern of skin cancer. [...] and corroborated preoperatively wit (more content not included)...[facility]10-06-2021 NoteClinical Information Procedure: Excision with frozen section left ear Pre-operative diagnosis: Basal cell carcinoma Outside pathology report from [facility] was received with accession number [id number]. SP Specimen A Skin of left ear, [...] skin without gross lesi (more content not included)...[facility] HospitalComment on above:Performed By: #### SPR ####[facility] (DEFAULT)[address] [place], [place] [address]Discharge summary Author Ghanshyam Kaye [facility] October 28, 2021 10:30am Note Date/Time October 27, 2021 1:34 pm [facility] [address] [place] [address] Discharge Summary Signed Patient: Anai Goodman MR#: [id number] : 1955 Acct:[id number] Age/Sex: 66 / M Adm Date: 2 Loc: Room: 9P8244-[address]: Ghanshyam Kaye MD Copies to: [...] year old male who was admitted to [facility] inpatient rehabfor strengthening s/p [...] Patient's was on Xarelto while inpatient. Per [facility] pharmacy , insurance co-pay [...] year old male who was admitted to [facility] inpatient rehabfor strengthening s/p [...] Patient's was on Xarelto while inpatient. Per [facility] pharmacy , insurance co-pay [...] home prior. Your Home Health agency is [facility] ( ). They will usually contact you [...] them prior to your appointment. Instructions: Amputation, [id number] (DC) Stand Alone Forms: Insulin Corrective Scale [...] signed by Ghanshyam Kaye MD> 10/28/21 1030 [facility] Work Phone: Evaluation noteNo [employer] Other Evaluation note* Diagnosis Onset Date Resolution Status Below knee amputation acute Type 2 diabetes mellitus acu te [facility] Work Phone: Evaluation note* Diagnosis [...] wound of skin acute Wound dehiscence acute [facility] Work Phone: Evaluation note* Diagnosis Onset Date Resolution Status Below knee amputation acute Dehiscence of wound of skin acute Wound dehiscence acute [facility] Work Phone: Evaluation noteNo assessment information available [facility] Work Phone: Evaluation note* Diagnosis Preop cardiovascular exam- Primary Pre-operative cardiovascular examination Coronary artery disease involving [place] coronary artery of [place] heart without angina pectoris Ischemic cardiomyopathy Other specified forms of chronic ischemic heart disease Chronic systolic congestive heart failure ([facility]) Apical mural thrombus Essential (primary) hypertension Unspecified essential hypertension Cardiac defibrillator in place- [employer] Automatic implantable cardiac defibrillator in situ Mixed hyperlipidemia [email or web address]* Diagnosis Type 2 diabetes mellitus with diabetic neuropathic arthropathy, with long-term current use of insulin ([facility]) documented in this encounter [email or web address] System[facility]* Diagnosis Pure hypercholesterolemia documented in this encounter [email or web address] System[facility]* Diagnosis Chronic systolic congestive heart failure ([facility]) documented [facility] this encounter [email or web address] System[facility]* Diagnosis Sarcoidosis with granulomatous hepatitis [facility] encounter [email or web address] System[facility]* Diagnosis Type 2 diabetes mellitus with diabetic neuropathic arthropathy, with long-term current use of insulin ([facility]) documented in this encounter [facility] [employer] [facility] Services[facility] general Narrative - Reported* Type Description Date Medical History DM1 Medical History HTN Medical History HYPERLIPEDEMIA Surgical History LEFT FOOT SURGERY WITH REMOVAL OF ALL FIVE TOES Surgical History heart cath with [address] placem ent Hospitalization History MRSA 2011 Hospitalization History Heart [employer] [employer] Other Hisycit general Narrative - Reported* Type Description Date Medical History DM1 Medical History HTN Medical History HYPERLIPEDEMIA Surgical History LEFT FOOT SURGERY WITH REMOVAL OF ALL FIVE TOES Surgical History heart cath with 5 stents placem ent Surgical History right transtibial be low-knee amputation, right fibular osteotomy 10/17/21 Hospitalization History MRSA 2011 Hospitalization History Heart [employer] [employer] Other Hisfbxn general Narrative - Reported* Type Description Date [...] Heart Hospitalization History see above surg. hx. [employer] Other InstructionsNot on filedocumented in this encounter [facility] this [facility] filedocumented in this encounter [facility]Not on filedocumented in this encounter [facility]Not on filedocumented in this encounter [facility] Summary Purpose Family History No Family [...] yelitis of right tibia (M86.661) Referral Organization [facility] Referring Provider First [...] section and content) DATE CREATED AUTHOR 05/12/2020 [facility] DATE CREATED AUTHOR AUTHOR'S ORGANIZ ATION 05/26/2021 [facility] DATE CREATED AUTHOR AUTHOR'S ORGANIZ ATION 08/23/2021 [facility] DATE CREATED AUTHOR AUTHOR'S ORGANIZ ATION 11/02/[address] [facility] DATE CREATED AUTHOR AUTHOR'S ORGANIZ ATION 04/15/2023 [facility] DATE CREATED AUTHOR AUTHOR'S ORGANIZ ATION 06/29/2023 [facility] DATE CREATED AUTHOR AUTHOR'S ORGANIZ ATION 08/03/2023 [facility] DATE CREATED AUTHOR AUTHOR'S ORGANIZ ATION 08/04/2023 [facility] DATE CREATED AUTHOR AUTHOR'S ORGANIZ ATION 09/07/2023 [facility] DATE CREATED AUTHOR AUTHOR'S ORGANIZ ATION 10/03/2023 [facility] REASON FOR VISIT (unrecogniz ed section [...] NBA Other Provider Active Jana Parmar , BNA Other Provider Active Fredi Mendez MD Other [...] Murillo MD Other Provider Active Mai Britton [employer] Other Provider Active Christiano Evans MD Other Provider Active Isidro Antunez MD Other Provider Active Rosalind Coburn MD Other Provider Active Bill Osei MD Other Provider Active Lizbeth Mcbride , DO Other Provider Active Fabio Sanchez MD Other Provider Active Kwsei Muhammad , DO Other Provider Active Bre Patel PRINCIPAL SOFTWARE ENGINEER Other Provider Active Bin Carrera , DO Other Provider Active Patti Taylor MD Other Provider Active Kassandra Munoz , NBA Other Provider Active Team Status: Inactive Member Role Status Dates Deon Braxton , DO Primary Care Provider Active Reddy Brandt , DO Referring Provider Active Darien Bailey [employer] Attending Provider Activ e Team Status: Active [...] MD Other Provider Active Mai Britton , [employer] Other Provider Active Christiano Evans MD Other [...] DO Admit Provider, Attending Provide r Active Flour Blender Relationship Specialty Start Date End Date Deon Braxton, DO [address] [place] [address] PCP - General Internal Medicine 01/22/17 [employer]our [employer]ender Relationship Specialty Start Date End Date Deon Braxton DO [address] [place] [address] PCP - General Internal Medicine 01/22/17 Team Status: Inactive Member Role Status Dates Deon Braxton DO Primary Care Provider Active Sta rt: April 19, 2023 End: April 19, 2023 Salina Lee DPM MS Attending Provider Active Start: April 19, 2023 End: April 19, 2023 Flour Blender Relationship Specialty Start Date End Date Deon Braxton DO [address] [place] [address] PCP - General Internal Medicine 01/22/17 Flour Blender Relationship Specialty Start Date End Date Deon Braxton DO [address] [place] [address] PCP - General Internal Medicine 01/22/17 Flour Blender Relationship Specialty Start Date End Date Deon Braxton DO [address] [facility] [place] [address] PCP - General Internal Medicine 01/22/17 Goals [...] BE BASED ON THE PRIMARY CLINICAL RECORDS. [employer] provides no warranty or guarantee of the accuracy or completeness of information in this document.
== END 2023-10-22 15:58 | disposition home or self-care (01) ==
LOC: WC 15:57
PROVIDERS: PCP Internal Medicine; Visit Provider Physician Assistant
DX: S91.002A Unspecified open wound, left ankle, initial encounter (principal)
CPT/HCPCS: 10061

== ENCOUNTER 2023-10-22 16:55 | Outpatient (REF) | payer MEDICARE, SELFPAY | END 2023-10-22 16:56 | disposition home or self-care (01) | LOC: LAB 16:55 | PROVIDERS: PCP Internal Medicine; Visit Provider Physician Assistant | DX: L02.416 Cutaneous abscess of left lower limb (principal) | CPT/HCPCS: 87070; 87205 ==

== ENCOUNTER 2023-10-26 09:36 | Outpatient (OUT) | payer MEDICARE, SELFPAY ==
--- OUTSIDE RECORDS SUMMARY | 2023-10-26 09:58 | XMS_ITS | CCD ---
Author Organization [facility] Care Team Providers Care Hydroponics Grower Name Role Phone DEON BRAXTON Primary Care [...] Attending Provider DO Reddy Brandt Referring Provider [phone] CRISTINA Bailey Attending Provider DO Reddy Brandt Admit Provider NBA Hope Other Provider Unavailable NBA Ruiz Other Provider Unavailable NBA Sorensen Other Provider Unavailable NBA Jasso Other Provider Unavailable NBA Frederick Other Provider Unavailable NBA Parmar Other Provider Unavailable MD Fredi Mendez Other Provider KRUNAL Galvin Other Provider [phone] DO Julia Segura Other Provider MD Armando Hanks Other Provider [phone] DO Golden Whatley Other Provider MD Adi Feng Other Provider MD Letty Turpni Other Provider Polly ANP-BC Faviola Other Provider [...] Other Provider DO Kwesi Muhammad Other Provider [phone] KRUNAL Patel Other Provider DO Bin Carrera Other Provider MD Patti Tayolr Other Provider NBA Munoz Other Provider Unavailable [...] Unavailable IRAIS, DR CHAVARRIA Primary Care Unavailable [facility] SALINA Walker Consulting Unavailable SALINA LEE Admitting Unavailable JESUS, SALNIA [...] Primary Care Unavailable SALINA LEE Attending Unavailable SALIAN LEE Admitting Unavailable YUDONNA, DR CHAVARRIA Primary Care Unavailable HIGHLANDERSALINA Attending Unavailable HIGHLSALINA HURST Admitting Unavailable CLOUNAERTY, BALJEET Payan Attending Unavailabl e CLONUAERTYBALJEET O Admitting Unavailabl e YUDONNA, DR CHAVARRIA [...] Admitting Unavailable HIGHLANDER, SALINA Walker Attending Unavailable BRUCE[place], DR ANAI Edmond Consulting Unavailable HIGHLANDER, SALINA [...] Unavailable HIGHLANDER, SALINA Walker Admitting Unavailable HIGHLANDER, SALNIA Walker Attending Unavailable YUHAS, DR CHAVARRIA Primary Care Unavailable HIGHLANDER, SALINA Walker Consulting Unavailable [facility], SALINA Walker Admitting Unavailable CLOUNAERTY, BALJEET [...] Admit Provider MD Ghanshyam Kaye Attending Provider [phone] MD Bronwyn Alegre Other Provider ROHIT Palacios Emergency Provider [phone] Cortes, DO César Vega Emergency Provider [phone] Yuhas, DO Deon Primary Care Provider [phone] DO Reddy Brandt Attending Provider Yuhas, DO Deon Primary Care Provider DO Reddy Brandt Attending Provider DO César Cortes Emergency Provider [phone] DO Reddy Brandt Admit Provider [phone] Ghanshyam Kaye Unavailable Yuhas, DO Deon Primary Care Provider DO Reddy Brandt Attending Provider [phone] Dung Serna Unavailable Yumarvas Deon URENA Primary Care Provider [phone] TERRY LOCK Attending Unavailable YUHAS, DEON L Referring Unavailable YUHAS, DEON L Primary Care Unavailable Yuhas, DO Deon Primary Care Provider [phone] ERIKA Lee Attending Provider Salina Lee Attending [...] Chlorpheniramine; Translations: [chlorpheniramine] Drug Allergy 07-02-19 21 [facility] Repository (15 sources) Dextromethorphan; Translations: [dextromethorphan] Drug Allergy 10-19-19 22 Unknown Reaction [facility] Repository (20 sources) Doxycycline; Translations: [doxycycline] Drug Allergy 04-02-19 21 FELT LIKE A HEART ATTACK, Chest Pain [facility] Repository (20 sources) guaiFENesin; Translations: [guaiFENesin] Drug Allergy 04-14-19 16 [facility] Repository (20 sources) levoFLOXacin; Translations: [levoFLOXacin] Drug Allergy 04-02-19 21 Chest Pain [facility] Repository (20 sources) Phenylephrine; Translations: [phenylephrine] Drug Allergy 07-02-19 Unknown Reaction [facility] Repository (1 source) Tussionex [employer]; Translations: [Tussionex [employer]] Propensity to adverse reactions to drug (disorder) [facility] Repository (20 sources) Tussin Drug allergy [employer] Other (20 sources) HYDROcodone; Translations: [HYDROCODONE] Drug Allergy 10-19-19 [facility] (6 sources) Chlorpheniramine / HYDROcodone; Translations: [TUSSIONEX] Drug Allergy [facility] Repository (11 sources) Acetaminophen / diphenhydrAMINE / Phenylephrine; Translations: [XVWXXKPXO-UE-MGZSE MINOPHEN] Drug Allergy 02-04-20 22 [facility] (7 sources) Chlorpheniramine / HYDROcodone Drug Allergy Itching [facility] (11 sources) Dextromethorphan; Translations: [DEXTROMETHORPHAN HBR] Drug Allergy 10-18-19 Itching [employer] (1 source) carbetapentane Drug Allergy 12-06-19 [facility] Repository Medications Current Medications Medication Drug Class(es) Dates Sig (Normalized) Sig (Original) acetaminophen 500 mg oral tablet (14 sources) Start: 10-27-2021 take 500 mg by mouth every four hours Acetaminophen Active 500 MG PO Q4H 100 October 26, 2021 11:00pm take 1 capsule by mouth every si x hours Acetaminophen 500 MG 1 capsule as needed Orally every 6 hrs Active [id number] 200 actuat albuterol 0.09 mg/actuat metered dose [...] mL nebulizer Indications: COPD with acute exacerbation ([facility]) USE 3 ML VIA [...] tablet Indications: Chronic systolic congestive heart failure ([facility]) Take 1 tablet (10 mg total) by [...] arthropathy, with long-term current use of insulin ([facility]) CHANGE EVERY 2 WEEKS DIRECTED 6 kit [...] arthropathy, with long-term current use of insulin ([facility]) Inject 15 Units under the skin in the morning and 15 Units at noon and 15 Units in the evening. Inject with meals. 30 mL 1 06/04/2023 Active Start: 03-22-2023 ADMELOG U-100 INSULIN LISPRO 100 unit/mL solution Indications: Type 2 diabetes mellitus with diabetic neuropathic arthropathy, with long-term current use of insulin ([facility]) Inject 15 Units under the skin in [...] tablet Indications: Chronic systolic congestive heart failure ([facility]) Take 1 tablet (25 mg total) by [...] Start: 10-07-2020 take 1 puff(s) by mo [facility] once daily fluticasone furoate-vilanteroL (BREO ELLIPTA) [...] myocardial infarction; Translations: [Atherosclerotic heart disease of [place] coronary artery without angina pectoris] Onset: 11-23-2017 [...] sources) Long-term current use of insulin; Translations: [manager industrial (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) use of insulin] Episodic Other and [...] Onset: 01-18-2021 Episodic Other aftercare (1 source) manager industrial (current) use of aspirin; Translations: [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 USE OF ASPIRIN] Onset: 03-02-2021 Episodic Other aftercare (3 sources) penitentiary (current) use of insulin; Translations: [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 USE OF INSULIN] Onset: 04-22-2020 Episodic Other aftercare (1 source) Other care home (current) drug therapy; Translations: [OTH 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 DRUG THERAPY] Onset: 03-02-2021 Episodic [...] Interpretation Reference Range Facility COMPREHENSIVE METABOLIC PANE [facility] 09-13-2023 Albumin [Mass/Vol] 3.4 g/dL Normal 3.2-5.3 [facility] Comment on above: Performed By: #### 3 0934-4 #### [facility] ([id number]) [address] [place] [address] 45985 #### CMP #### [facility] ([id number]) [address], [address] [place] [address] ALP [Catalytic activity/Vol] 72 U/L Normal 39-[address] [facility] Comment on above: Performed By: #### 3 0934-4 #### [facility] ([id number]) [address] [place] [address] 19969 #### CMP #### [facility] ([id number]) [address] [place] [address] ALT [Catalytic activity/Vol] 32 U/L Normal 0-[address] [facility] Comment on above: Performed By: #### 3 0934-4 #### [facility] ([id number]) [address] [place] [address] 61614 #### CMP #### [facility] ([id number]) [address], [address] [place] [address] Anion gap [Moles/Vol] 10 mmol/L Normal 5-15 [facility] Comment on above: Performed By: #### 3 0934-4 #### [facility] ([id number]) [address] [place] [address] 73364 #### CMP #### [facility] ([id number]) [address] [place] [address] AST [Catalytic activity/Vol] 32 U/L Normal 0-[address] [facility] Comment on above: Performed By: #### 3 0934-4 #### [facility] ([id number]) [address] [place] [address] 53893 #### CMP #### [facility] ([id number]) [address] [place] [address] Bilirubin [Mass/Vol] 1.1 mg/dL Normal 0.3-1.2 [facility] Comment on above: Performed By: #### 3 0934-4 #### [facility] ([id number]) [address] [place] [address] 52996 #### CMP #### [facility] ([id number]) [address] [place] [address] Calcium [Mass/Vol] 9.6 mg/dL Normal 8.5-10.5 [facility] Comment on above: Performed By: #### 3 0934-4 #### [facility] ([id number]) [address] [place] [address] 31203 #### CMP #### [facility] ([id number]) [address] [place] [address] Chloride [Moles/Vol] 96 mmol/L Low 98-109 [facility] Comment on above: Performed By: #### 3 0934-4 #### [facility] ([id number]) [address] [place] [address] 43342 #### CMP #### [facility] ([id number]) [address] [place] [address] CO2 [Moles/Vol] 30 mmol/L Normal 22-[address] [facility] Comment on above: Performed By: #### 3 0934-4 #### [facility] ([id number]) [address] [place] [address] 23876 #### CMP #### [facility] ([id number]) [address] [place] [address] Creatinine [Mass/Vol] 1.24 mg/dL Normal 0.60-1.30 [facility] Comment on above: Result Comment: METH OD TRACEABLE TO IDMS STANDARD Performed By: #### 3 0934-4 #### [facility] ([id number]) [address] [place] [address] 36737 #### CMP #### [facility] ([id number]) [address] [place] [address] GFR/1.73 sq M.predicted among non-blacks MDRD (S/P/Bld) [Vol rate/Area] 65 mL/min/{1.73_m2} Normal >[address] [facility] Comment on above: Result Comment: Reported eGFR is based on the CKD-EPI 2020 equation that does not use a race coefficient. Performed By: #### 3 0934-4 #### [facility] ([id number]) [address] [place] [address] 16411 #### CMP #### [facility] ([id number]) [address] [place] [address] Glucose [Mass/Vol] 154 mg/dL High 65-99 [facility] Comment on above: Performed By: #### 3 0934-4 #### [facility] ([id number]) [address] [place] [address] 84029 #### CMP #### [facility] ([id number]) [address] [place] [address] Potassium [Moles/Vol] 4.4 mmol/L Normal 3.5-5.0 [facility] Comment on above: Performed By: #### 3 0934-4 #### [facility] ([id number]) [address] [place] [address] 10382 #### CMP #### [facility] ([id number]) [address] [place] [address] Protein [Mass/Vol] 7.3 g/dL Normal 6.0-8.0 [facility] Comment on above: Performed By: #### 3 0934-4 #### [facility] ([id number]) [address] [place] [address] 56868 #### CMP #### [facility] ([id number]) [address] [place] [address] Sodium [Moles/Vol] 136 mmol/L Normal 134-146 [facility] Comment on above: Performed By: #### 3 0934-4 #### [facility] ([id number]) [address] [place] [address] 02664 #### CMP #### [facility] ([id number]) [address] [place] [address] Urea nitrogen [Mass/Vol] 37 mg/dL High 5-[address] [facility] Comment on above: Performed By: #### 3 0934-4 #### [facility] ([id number]) [address] [place] [address] 51499 #### CMP #### [facility] ([id number]) [address] [place] [address] Natriuretic peptide B [Mass/ Vol]on 09-13-2023 Natriuretic peptide B (Bld) [Mass/Vol] 198 pg/mL High <100.[address] [facility] Comment on above: Performed By: #### 3 0934-4 #### [facility] ([id number]) [address] [place] [address] 53881 #### CMP #### [facility] ([id number]) [address] [place] [address] COMPREHENSIVE METABOLIC PANE Ray 08-02-2023 Albumin [Mass/Vol] 4.3 g/dL Normal 3.2-5.3 [facility] Comment on above: Performed By: #### C ALEA, 00302-4, HA1C #### [facility] ([id number]) [address] [place] [address] ALP [Catalytic activity/Vol] 85 U/L Normal 39-130 [facility] Comment on above: Performed By: #### C ALEA, 21231-7, HA1C #### [facility] ([id number]) [address] [place] [address] ALT [Catalytic activity/Vol] 31 U/L Normal 0-40 [facility] Comment on above: Performed By: #### Uzair COSBY, 11358-9, HA1C #### [facility] ([id number]) [address] [place] [address] Anion gap [Moles/Vol] 8 mmol/L Normal 5-15 [facility] Comment on above: Performed By: #### Uzair COSBY, 98810-1, HA1C #### [facility] ([id number]) [address] [place] [address] AST [Catalytic activity/Vol] 29 U/L Normal 0-41 [facility] Comment on above: Performed By: #### Uzair COSBY, 40991-5, HA1C #### [facility] ([id number]) [address] [place] [address] Bilirubin [Mass/Vol] 0.9 mg/dL Normal 0.3-1.2 [facility] Comment on above: Performed By: #### Uzair COSBY, 68045-2, HA1C #### [facility] ([id number]) [address] [place] [address] Calcium [Mass/Vol] 9.7 mg/dL Normal 8.5-10.5 [facility] Comment on above: Performed By: #### Uzair COSBY 33921-8, MARVA1C #### [facility] ([id number]) [address] [place] [address] Chloride [Moles/Vol] 103 mmol/L Normal 98-109 [facility] Comment on above: Performed By: #### Uzair COSBY 63461-2, MARVA1C #### [facility] ([id number]) [address] [place] [address] CO2 [Moles/Vol] 31 mmol/L Normal 22-32 [facility] Comment on above: Performed By: #### Uzair COSBY 24317-0, ALANNAH #### [facility] ([id number]) [address] [place] [address] Creatinine [Mass/Vol] 1.35 mg/dL High 0.60-1.30 [facility] Comment on above: Result Comment: METH OD TRACEABLE TO IDMS STANDARD Performed By: #### Uzair COSBY 34515-1, MARVA1C #### [facility] ([id number]) [address] [place] [address] GFR/1.73 sq M.predicted among non-blacks MDRD (S/P/Bld) [Vol rate/Area] 58 mL/min/{1.73_m2} Low >59 [facility] Comment on above: Result Comment: Reported eGFR is based on the CKD-EPI 2020 equation that does not use a race coefficient. Performed By: #### Uzair COSBY 12454-3, MARVA1C #### [facility] ([id number]) [address] [place] [address] Glucose [Mass/Vol] 135 mg/dL High 65-99 [facility] Comment on above: Performed By: #### Uzair COSBY 31450-7, MARVA1C #### [facility] ([id number]) [address] [place] [address] Potassium [Moles/Vol] 4.3 mmol/L Normal 3.5-5.0 [facility] Comment on above: Performed By: #### Uzair COSBY, 76095-9, MARVA1C #### [facility] ([id number]) [address] [place] [address] Protein [Mass/Vol] 6.9 g/dL Normal 6.0-8.0 [facility] Comment on above: Performed By: #### Uzair COSBY, 21950-9, HA1C #### [facility] ([id number]) [address] [place] [address] Sodium [Moles/Vol] 142 mmol/L Normal 134-146 [facility] Comment on above: Performed By: #### Uzair COSBY, 89145-3, MARVA1C #### [facility] ([id number]) [address] [place] [address] Urea nitrogen [Mass/Vol] 31 mg/dL High 5-27 [facility] Comment on above: Performed By: #### Uzair COSBY, 98218-8, MARVA1C #### [facility] ([id number]) [address] [place] [address] HGB A1C (GLYCO-HGB)on 2023 Glucose [Mass/Vol] 114 mg/dL Normal [facility] Comment on above: Performed By: #### Uzair COSBY, 25554-0, HA1C #### [facility] ([id number]) [address] [place] [address] HbA1c (Bld) [Mass fraction] 5.6 % Normal 4.4-5.6 [facility] Comment on above: Result Comment: NOTE ADA Guidelines Result HgbA1c Normal : less than 5.7 % Prediabetes : 5.7 % to 6.4 % Diabetes : > 6.4 % Use with caution in patients with abnormal hemoglobin variants as the half-life of red blood cells and in vivo glycation rates are affected. Performed By: #### Uzair COSBY, 43248-6, ALANNAH #### [facility] ([id number]) [address] [place] [address] Lipid 1996 panelon 4 Cholesterol [Mass/Vol] 88 mg/dL Low 150-200 Pr [facility] Comment on above: Performed By: #### Uzair COSBY, 68765-5, ALANNAH #### [facility] ([id number]) [address] [place] [address] Cholesterol in HDL [Mass/Vol] 38 mg/dL Low >39 [facility] Comment on above: Result Comment: HDL <40 mg/dL - High Risk HDL > or = 40mg/dL- Desirable HDL >60 mg/dL - Negative Risk Performed By: #### Uzair COSBY, 89803-4, ALANNAH #### [facility] ([id number]) [address] [place] [address] Cholesterol in LDL [Mass/Vol] 33 mg/dL Normal <130 [facility] Comment on above: Result Comment: LDL <100 mg/dL - Desirable LDL >160 mg/dL - High Risk Performed By: #### Uzair COSBY, 04890-6, ALANNAH #### [facility] ([id number]) [address] [place] [address] Cholesterol in VLDL [Mass/Vol] 17 mg/dL Normal 0-30 [facility] Comment on above: Performed By: #### Uzair COSBY, 53949-4, HA1C #### [facility] ([id number]) [address] [place] [address] CHOLESTEROL:HDL 2.3 Normal 1.0-5.0 [facility] Comment on above: Performed By: #### Uzair COSBY, 83194-5, HA1C #### [facility] ([id number]) [address] [place] [address] Triglyceride [Mass/Vol] 83 mg/dL Normal 27-150 [facility] Comment on above: Performed By: #### Uzair COSBY, 62636-7, MARVA1C #### [facility] ([id number]) [address] [place] [address] MICROALBUMIN - ALBUMIN:CREAT ININE URINE RATIOon 08-02-2023 ALB/CREAT RATIO 400.0 mg/g creat High 0.0-30.0 [facility] Comment on above: Performed By: #### M ALBU #### [facility] ([id number]) [address] [place] [address] Albumin DL <= 20 mg/L (U) [Mass/Vol] 29.5 mg/dL High 0.0-1.9 [facility] Comment on above: Performed By: #### M ALBU #### [facility] ([id number]) [address] [place] [address] URINE CREAT 73.75 mg/dL Normal [facility] Comment on above: Performed By: #### M ALBU #### [facility] ([id number]) [address] [place] [address] Ray 04-19-2023 L Specimen: [id number] Received: 04/20/23 Status: SASHA Matta Num: [id number] Spec Type: Surgical Subm Dr: Salina Lee DPM, MS Tissues: A Bone Fragments - Other than Path Fracture (LT LATERAL MALLEOLUS) Procedures: HE, Gross/Micro L3, Decalcification Age/ Patient Sex Location Account Attending Physician RexAnai Heck 67/M [facility] [id number] Salina Lee DPM, MS SPEC NUM: [id number] RECD: 04/20/23 STATUS: SASHA PULIDOSandy NUM: [id number] KARIME: 04/19/[address]: Salina Lee DPM, [...] in one cassette labeled A1. CPT Codes 01438, 93756 -------- -------- Specimen: [id number] Received: 04/20/23 Status: SASHA Matta Num: [id number] Spec Type: Surgical Subm Dr: Salina Lee,DPM, MS Tissues: A Bone Fragments - Other than Path Fracture (LT LATERAL MALLEOLUS) Procedures: HE, Gross/Micro L3, Decalcification -------- Patient: Anai Goodman [id number] (Continued) -------- Signed (signature on file) Aniket Krishnamurthy MD 04/23/232202 [facility] POCT EKGon 04-12-2023 [facility] MR ANKLE LT W WO CONTon [...] Bennett MD on 04/05/2023 8:50 AM Normal [facility] CBC AND AUTO DIFFon 03-22-20 ABSOLUTE BASOPHIL 0.0 X10E9/L Normal 0.0-0.2 [facility] Comment on above: Performed By: #### C BCA CMP, 88254-6, 308-1 #### [facility] ([id number]) [address] [place] [address] ABSOLUTE NEUTROPHIL 8.3 X10E9/L High 1.5-6.6 [facility] Comment on above: Performed By: #### C BCA, CMP, 47565-2, 3083- #### [facility] ([id number]) [address] [place] [address] Basophils/100 WBC (Bld) 0.3 % Normal [facility] Comment on above: Performed By: #### C BCA, CMP, 70560-1, 308- #### [facility] ([id number]) [address] [place] [address] Eosinophils (Bld) [#/Vol] 0.4 10*3/uL Normal 0.0-0.4 [facility] Comment on above: Performed By: #### C BCA, CMP, 65348-8, 308-1 #### [facility] ([id number]) [address] [place] [address] Eosinophils/100 WBC (Bld) 4.0 % Normal [facility] Comment on above: Performed By: #### C BCA, CMP, 10016-6, 308-1 #### [facility] ([id number]) [address] [place] [address] Erythrocyte distribution width (RBC) [Ratio] 14.5 % Normal 11.5-15.0 [facility] Comment on above: Performed By: #### C JAYDON CMP, 21159-9, 3083-04 #### [facility] ([id number]) [address] [place] [address] Hematocrit (Bld) [Volume fraction] 45.0 % Normal 39-49 [facility] Comment on above: Performed By: #### Uzair INTERIANO CMP, 77142-3, 3083- #### [facility] ([id number]) [address] [place] [address] Hemoglobin (Bld) [Mass/Vol] 15.2 g/dL Normal 13.0-17.0 [facility] Comment on above: Performed By: #### Uzair INTERIANO CMP, , 3083-04 #### [facility] ([id number]) [address] [place] [address] Lymphocytes (Bld) [#/Vol] 0.8 10*3/uL Low 1.0-3.5 [facility] Comment on above: Performed By: #### Uzair INTERIANO CMP, 62528-2, 3083-04 #### [facility] ([id number]) [address] [place] [address] Lymphocytes/100 WBC (Bld) 8.1 % Normal [facility] Comment on above: Performed By: #### Uzair INTERIANO, CMP, 26570-5, 3083- #### [facility] ([id number]) [address] [place] [address] MCH (RBC) [Entitic mass] 30.6 pg Normal 27-34 [facility] Comment on above: Performed By: #### C BCA, CMP, 36681-7, 3083-04 #### [facility] ([id number]) [address] [place] [address] MCHC (RBC) [Mass/Vol] 33.7 g/dL Normal 32-36 [facility] Comment on above: Performed By: #### C BCA, CMP, 85427-9, 3083- #### [facility] ([id number]) [address], [address] [place] [address] MCV (RBC) [Entitic vol] 91 fL Normal 80-100 [facility] Comment on above: Performed By: #### C BCA, CMP, 21099-2, 3083-04 #### [facility] ([id number]) [address] [place] [address] Monocytes (Bld) [#/Vol] 0.8 10*3/uL Normal 0-0.9 [facility] Comment on above: Performed By: #### C BCA, CMP, 78537-2, 3083-04 #### [facility] ([id number]) [address], [address] [place] [address] Monocytes/100 WBC (Bld) 7.5 % Normal [facility] Comment on above: Performed By: #### C BCA, CMP, , 3083- #### [facility] ([id number]) [address], [address] [place] [address] Neutrophils/100 WBC (Bld) 80.1 % Normal [facility] [place] Comment on above: Performed By: #### C BCA, CMP, 74295-8, 3083- #### [facility] ([id number]) [address], [address] [place] [address] Platelet mean volume (Bld) [Entitic vol] 9.0 fL Normal 7-12 [facility] [place] Comment on above: Performed By: #### C BCA, CMP, 33702-9, 308-1 #### [facility] ([id number]) [address], [address] [place] [address] Platelets (Bld) [#/Vol] 205 10*3/uL Normal 150-450 [facility] [place] Comment on above: Performed By: #### C BCA, CMP, 71160-1, 308-1 #### [facility] ([id number]) [address], [address] [place] [address] RBC COUNT 4.95 X10E12/L Normal 4.10-5.70 [facility] [place] Comment on above: Performed By: #### C BCA, CMP, 71842-5, 308- #### [facility] ([id number]) [address] [place] [address] WBC (Bld) [#/Vol] 10.4 10*3/uL Normal 4.0-11.0 [facility] Comment on above: Performed By: #### C BCA, CMP, 92615-5, 3083-1 #### [facility] ([id number]) [address] [place] [address] COMPREHENSIVE METABOLIC PANE Ray 03-22-2023 Albumin [Mass/Vol] 4.3 g/dL Normal 3.2-5.3 [facility] Comment on above: Performed By: #### C BCA, CMP, 05892-0, 3083-1 #### [facility] ([id number]) [address], [address] [place] [address] ALP [Catalytic activity/Vol] 91 U/L Normal 39-130 [facility] [place] Comment on above: Performed By: #### C BCA, CMP, 03904-0, 3084-1 #### [facility] ([id number]) [address], [address] [place] [address] ALT [Catalytic activity/Vol] 36 U/L Normal 0-40 [facility] Comment on above: Performed By: #### C BCA, CMP, 04810-7, 3083- #### [facility] ([id number]) [address], [address] [place] [address] Anion gap [Moles/Vol] 7 mmol/L Normal 5-15 [facility] Comment on above: Performed By: #### C BCA, CMP, 33848-0, 3083- #### [facility] ([id number]) [address], [address] [place] [address] AST [Catalytic activity/Vol] 32 U/L Normal 0-41 [facility] Comment on above: Performed By: #### C BCA, CMP, 70190-7, 3083- #### [facility] ([id number]) [address] [place] [address] Bilirubin [Mass/Vol] 0.8 mg/dL Normal 0.3-1.2 [facility] Comment on above: Performed By: #### C BCA, CMP, 78643-9, 3083- #### [facility] ([id number]) [address], [address] [place] [address] Calcium [Mass/Vol] 10.2 mg/dL Normal 8.5-10.5 [facility] Comment on above: Performed By: #### C BCA, CMP, 31555-6, 3083- #### [facility] ([id number]) [address], [address] [place] [address] Chloride [Moles/Vol] 96 mmol/L Low 98-109 [facility] Comment on above: Performed By: #### C BCA, CMP, 79620-2, 3083-1 #### [facility] ([id number]) [address], [address] [place] [address] CO2 [Moles/Vol] 33 mmol/L High 22-32 [facility] [place] Comment on above: Performed By: #### C BCA, CMP, 35268-6, 308-1 #### [facility] ([id number]) [address], [address] [place] [address] Creatinine [Mass/Vol] 1.61 mg/dL High 0.60-1.30 [facility] Comment on above: Result Comment: METH OD TRACEABLE TO IDMS STANDARD Performed By: #### C JAYDON, CMP, 56263-6, 3083-04 #### [facility] ([id number]) [address], [address] [place] [address] GFR/1.73 sq M.predicted among non-blacks MDRD (S/P/Bld) [Vol rate/Area] 47 mL/min/{1.73_m2} Low >59 [facility] Comment on above: Result Comment: Reported eGFR is based on the CKD-EPI 2020 equation that does not use a race coefficient. Performed By: #### C BCA, CMP, 04563-3, 3083-04 #### [facility] ([id number]) [address], [address] [place] [address] Glucose [Mass/Vol] 77 mg/dL Normal 65-99 [facility] Comment on above: Performed By: #### C JAYDON CMP, 68444-0, 3083-04 #### [facility] ([id number]) [address], [address] [place] [address] Potassium [Moles/Vol] 4.4 mmol/L Normal 3.5-5.0 [facility] Comment on above: Performed By: #### C BCA, CMP, 38874-3, 3083- #### [facility] ([id number]) [address], [address] [place] [address] Protein [Mass/Vol] 7.6 g/dL Normal 6.0-8.0 [facility] Comment on above: Performed By: #### C BCA, CMP, 02095-0, 308-1 #### [facility] ([id number]) [address], [address] [place] [address] Sodium [Moles/Vol] 136 mmol/L Normal 134-146 [facility] Comment on above: Performed By: #### C BCA, CMP, 17732-8, 308-1 #### [facility] ([id number]) [address] [address] [place] [address] Urea nitrogen [Mass/Vol] 37 mg/dL High 5-27 [facility] Comment on above: Performed By: #### C BCA, CMP, 87139-9, 308-1 #### [facility] ([id number]) [address], [facility] [address] [place] [address] HGB A1C (GLYCO-HGB)on 2022 Glucose [Mass/Vol] 143 mg/dL Normal [facility] Comment on above: Performed By: #### C JAYDON, CMP, 51502-6, 3083-1 #### [facility] ([id number]) [address] [address] [place] [address] HbA1c (Bld) [Mass fraction] 6.6 % High 4.4-5.6 [facility] Comment on above: Result Comment: NOTE ADA Guidelines Result HgbA1c Normal : less than 5.7 % Prediabetes : 5.7 % to 6.4 % Diabetes : > 6.4 % Use with caution in patients with abnormal hemoglobin variants as the half-life of red blood cells and in vivo glycation rates are affected. Performed By: #### C BCA, CMP, 54692-0, 3084-1 #### [facility] ([id number]) [address], [address] [place] [address] Lipid 1996 panelon 3 Cholesterol [Mass/Vol] 85 mg/dL Low 150-200 Pr [facility] Comment on above: Performed By: #### C JAYDON, CMP, 98281-0, 3083-04 #### [facility] ([id number]) [address], [address] [place] [address] Cholesterol in HDL [Mass/Vol] 36 mg/dL Low >39 [facility] Comment on above: Result Comment: HDL <40 mg/dL - High Risk HDL > or = 40mg/dL- Desirable HDL >60 mg/dL - Negative Risk Performed By: #### C JAYDON, CMP, 70171-0, 3083-04 #### [facility] ([id number]) [address] [place] [address] Cholesterol in LDL [Mass/Vol] 34 mg/dL Normal <130 [facility] Comment on above: Result Comment: LDL <100 mg/dL - Desirable LDL >160 mg/dL - High Risk Performed By: #### C JAYDON, CMP, 10673-2, 3083-04 #### [facility] ([id number]) [address] [place] [address] Cholesterol in VLDL [Mass/Vol] 15 mg/dL Normal 0-30 [facility] Comment on above: Performed By: #### Uzair INTERIANO, CMP, 13564-5, 3083- #### [facility] ([id number]) [address], [address] [place] [address] CHOLESTEROL:HDL 2.4 Normal 1.0-5.0 [facility] Comment on above: Performed By: #### Uzair BCA, CMP, 86044-2, 308- #### [facility] ([id number]) [address], [address] [place] [address] Triglyceride [Mass/Vol] 75 mg/dL Normal 27-150 [facility] Comment on above: Performed By: #### C BCA, CMP, 00029-3, 3084-1 #### [facility] ([id number]) [address], [address] [place] [address] URIC ACIDon 03-22-2023 Urate [Mass/Vol] 8.0 mg/dL High 2.6-7.2 [facility] Comment on above: Performed By: #### C BCA, CMP, 84175-5, 30807-01 #### [facility] ([id number]) [address], [address] [place] [address] XR cervical spine 2Von 10-05 XR cervical spine 2V [facility] [place] [address] [place] [address] XRay Report Signed Patient: Anai Goodman MR#: [id number] : 1955 Acct:[id number] Age/Sex: 66 / M ADM Date: 10/05/22 Loc: XD Room: Type: [facility] Attending Dr: Dung Serna MD Copies [...] Jose Sanabria M.D.10/05/2022 12:36 PM Dictation Location: [place] [address] Transcribed By: BLANCA 10/05/22 1236 Dictated By: Jose Sanabria DO 10/05/22 1233 Signed By: 10/05/22 1236 Normal [facility] Basophils Auto (Bld) [#/Vol] Ordered By: Spenser Elaine on 11-29-2021 Basophils (Bld) [#/Vol] 0.0 10*3/uL 0.0-0.2 [facility] Basophils/100 WBC Auto (Bld) Ordered By: Spenser Elaine on 11-29-2021 Basophils/100 WBC (Bld) 0.5 % . [facility] Blood hemoglobin measurement (mass/volume)Ordered By: Spenser Elaine on 11-29-2021 Hemoglobin (Bld) [Mass/Vol] 12.6 g/dL 13.0-17.0 [facility] Blood leukocytes automated c ount (number/volume)Ordered By: Spenser Elaine on 11-29-2021 WBC (Bld) [#/Vol] 6.8 10*3/uL 4.5-11.0 [facility] COVID CepheidOrdered By: Junior Cortes on 11-29-2021 SARS-CoV-2 (COVID-19) Ab IA Ql Negative Negative [facility] Comment on above: This is a duplicate [employer] Xpert Xpress CoV-2/Flu/RSV Plus RNA by RT-PCR result to be used for statistical tracking purpose only. SARS-CoV-2 (COVID-19) RNA MEREDITH+probe Ql (Unsp spec) [facility] Creatinine and Glomerular fi ltration rate.predicted panel (S/P/Bld)Ordered By: Spenser Elaine on 11-29-2021 Creatinine [Mass/Vol] 1.38 mg/dL 0.64-1.27 [facility] Eosinophils Auto (Bld) [#/Vo l]Ordered By: Spenser Elaine on 11-29-2021 Eosinophils (Bld) [#/Vol] 0.5 10*3/uL 0.0-0.45 [facility] Eosinophils/100 WBC Auto (Bl d)Ordered By: Spenser Elaine on 11-29-2021 Eosinophils/100 WBC (Bld) 7.5 % . [facility] Erythrocyte distribution wid th Auto (RBC) [Ratio]Ordered By: Spenser Elaine on 11-29-2021 Erythrocyte distribution width (RBC) [Ratio] 15.7 % 12.0-14.8 [facility] Estimated glomerular filtrat ion rate (GFR) non- AmericanOrdered By: Spenser Elaine on 11-29-2021 GFR/1.73 sq M.predicted among non-blacks MDRD (S/P/Bld) [Vol rate/Area] 52 mL/Min [facility] Glucose Glucometer (dC) [M ass/Vol]Ordered By: Reddy Brandt on 11-29-2021 Glucose [Mass/Vol] 141 mg/dL [facility] Comment on above: Random Glucose Refer ence Range is dependent on time and content of last meal. Glucose of more than 200 mg/dL in a nonstressed, ambulatory subject supports the diagnosis of Diabetes Mellitus. Hematocrit Auto (Bld) [Volum e fraction]Ordered By: Spenser Elaine on 11-29-2021 Hematocrit (Bld) [Volume fraction] 38.3 % 38.8-50.0 [facility] Laboratory - Hematology and Cell countsOrdered By: Spenser Elaine on 11-29-2021 Nucleated RBC/100 WBC (Bld) [Ratio] 0.0 % 0-0.5 [facility] Laboratory - Microbiology an d Antimicrobial susceptibilityOrdered By: César Cortes on 11-29-2021 SARS-CoV-2 (COVID-19) RNA MEREDITH+probe Ql (Unsp spec) N/A [facility] Lymphocytes Auto (Bld) [#/Vo l]Ordered By: Spenser Elaine on 11-29-2021 Lymphocytes (Bld) [#/Vol] 0.6 10*3/uL 1.00-4.8 [facility] Lymphocytes/100 WBC Auto (Bl d)Ordered By: Spenser Elaine on 11-29-2021 Lymphocytes/100 WBC (Bld) 9.0 % . [facility] MCH Auto (RBC) [Entitic mass ]Ordered By: Spenser Elaine on 11-29-2021 MCH (RBC) [Entitic mass] 27.6 pg 27.5-35.2 [facility] MCHC Auto (RBC) [Mass/Vol]Or dered By: Spenser Elaine on 11-29-2021 MCHC (RBC) [Mass/Vol] 32.8 g/dL 32.5-35.6 [facility] MCV Auto (RBC) [Entitic vol] Ordered By: Spenser Elaine on 11-29-2021 MCV (RBC) [Entitic vol] 84.3 fL 83.5-101 [facility] Monocytes Auto (Bld) [#/Vol] Ordered By: Spenser Elaine on 11-29-2021 Monocytes (Bld) [#/Vol] 0.7 10*3/uL 0.0-0.8 [facility] Monocytes/100 WBC Auto (Bld) Ordered By: Spenser Elaine on 11-29-2021 Monocytes/100 WBC (Bld) 10.9 % . [facility] Neutrophils Auto (Bld) [#/Vo l]Ordered By: Spenser Elaine on 11-29-2021 Neutrophils (Bld) [#/Vol] 4.9 10*3/uL 1.8-7.7 [facility] Neutrophils/100 WBC Auto (Bl d)Ordered By: Spenser Elaine on 11-29-2021 Neutrophils/100 WBC (Bld) 72.1 % . [facility] No Panel InformationOrdered By: Reddy Brandt on 11-29-2021 Bedside Glucose Comment Glu2: cleaned meter [facility] No Panel InformationOrdered By: Spenser Elaine on 11-29-2021 Estimated GFR () > 60 mL/Min [facility] Comment on above: GFR estimated refere nce range: According to KDOQI guidelines, <60 ml/min/1.73m2 is sufficient to diagnose a patient with chronic kidney disease. Pharmacy Creatinine Clearance (Chem 66.84 [facility] Platelet mean volume Auto (B ld) [Entitic vol]Ordered By: Spenser Elaine on 11-29-2021 Platelet mean volume (Bld) [Entitic vol] 9.3 fL 6.6-10.1 [facility] Platelets Auto (Bld) [#/Vol] Ordered By: Spenser Elaine on 11-29-2021 Platelets (Bld) [#/Vol] 142 10*3/uL 150-450 [facility] RBC Auto (Bld) [#/Vol]Ordere d By: Spenser Elaine on 11-29-2021 RBC (Bld) [#/Vol] 4.54 10*6/uL 3.90-5.60 [facility] Serum or plasma anion gap de terminationOrdered By: Spenser Elaine on 11-29-2021 Anion gap [Moles/Vol] 12.0 mmol/L 6.0-15.0 [facility] Serum or plasma calcium sergei urement (mass/volume)Ordered By: Spenser Elaine on 11-29-2021 Calcium [Mass/Vol] 10.0 mg/dL 8.2-10.2 [facility] Serum or plasma chloride zofia surement (moles/volume)Ordered By: Spenser Elaine on 11-29-2021 Chloride [Moles/Vol] 100 mmol/L 95-114 [facility] Serum or plasma glucose sergei urement (mass/volume)Ordered By: Spenser Elaine on 11-29-2021 Glucose [Mass/Vol] 130 mg/dL 70-100 [facility] Comment on above: ADA recommended refe [...] on 11-29-2021 Potassium [Moles/Vol] 4.0 mmol/L 3.5-5.1 [facility] Serum or plasma sodium measu rement (moles/volume)Ordered By: Spenser Chele on 11-29-2021 Sodium [Moles/Vol] 138 mmol/L 136-146 [facility] Serum or plasma total carbon dioxide measurement (moles/volume)Ordered By: Spenser Chele on 11-29-2021 CO2 [Moles/Vol] 30.0 mmol/L 22.0-30.0 [facility] Serum or plasma urea nitroge n measurement (mass/volume)Ordered By: Spenser Elaine on 11-29-2021 Urea nitrogen [Mass/Vol] 22 mg/dL 12-23 [facility] Glucose Glucometer (BldC) [M ass/Vol]Ordered By: Reddy Brandt on 11-03-2021 Glucose [Mass/Vol] 174 mg/dL [facility] Comment on above: Random Glucose Refer ence Range is dependent on time and content of last meal. Glucose of more than 200 mg/dL in a nonstressed, ambulatory subject supports the diagnosis of Diabetes Mellitus. No Panel InformationOrdered By: Reddy Brandt on 11-03-2021 Bedside Glucose Comment Glu2: cleaned meter [facility] COVID-19 Positive/NegativeOr dered By: Reddy Brandt on 11-02-2021 SARS-CoV-2 (COVID-19) N gene MEREDITH+probe Ql (Resp) Negative Negative [facility] Comment on above: Testing for SARS-CoV -2 by RT-PCR This test was developed and its performance characteristics determined by [employer] ([employer]) and validated at the [facility]. This test has not been FDA cleared [...] developed and its performance characteristics determined by [employer] ([employer]) and validated at the [facility]. This test has not been FDA cleared [...] Kaye on 10-27-2021 Glucose [Mass/Vol] 166 mg/dL [facility] Comment on above: Random Glucose Refer ence Range is dependent on time and content of last meal. Glucose of more than 200 mg/dL in a nonstressed, ambulatory subject supports the diagnosis of Diabetes Mellitus. No Panel InformationOrdered By: Ghanshyam Kaye on 10-27-2021 Bedside Glucose Comment Glu2: cleaned meter [facility] Basophils Auto (Bld) [#/Vol] Ordered By: Chante Narayan on 10-25-2021 Basophils (Bld) [#/Vol] 0.0 10*3/uL 0.0-0.2 [facility] Basophils/100 WBC Auto (Bld) Ordered By: Chante Narayan on 10-25-2021 Basophils/100 WBC (Bld) 0.3 % . [facility] Blood hemoglobin measurement (mass/volume)Ordered By: Chante Narayan on 10-25-2021 Hemoglobin (Bld) [Mass/Vol] 11.2 g/dL 13.0-17.0 [facility] Blood leukocytes automated c ount (number/volume)Ordered By: Chante Narayan on 10-25-2021 WBC (Bld) [#/Vol] 5.7 10*3/uL 4.5-11.0 [facility] Creatinine and Glomerular fi ltration rate.predicted panel (S/P/Bld)Ordered By: Chante Narayan on 10-25-2021 Creatinine [Mass/Vol] 1.24 mg/dL 0.64-1.27 [facility] Eosinophils Auto (Bld) [#/Vo l]Ordered By: Chante Narayan on 10-25-2021 Eosinophils (Bld) [#/Vol] 0.4 10*3/uL 0.0-0.45 [facility] Eosinophils/100 WBC Auto (Bl d)Ordered By: Chante Narayan on 10-25-2021 Eosinophils/100 WBC (Bld) 6.7 % . [facility] Erythrocyte distribution wid th Auto (RBC) [Ratio]Ordered By: Chante Narayan on 10-25-2021 Erythrocyte distribution width (RBC) [Ratio] 17.6 % 12.0-14.8 [facility] Estimated glomerular filtrat ion rate (GFR) non- AmericanOrdered By: Chante Narayan on 10-25-2021 GFR/1.73 sq M.predicted among non-blacks MDRD (S/P/Bld) [Vol rate/Area] 59 mL/Min [facility] Hematocrit Auto (Bld) [Volum e fraction]Ordered By: Chante Narayan on 10-25-2021 Hematocrit (Bld) [Volume fraction] 33.0 % 38.8-50.0 [facility] Laboratory - Hematology and Cell countsOrdered By: Chante Narayan on 10-25-2021 Nucleated RBC/100 WBC (Bld) [Ratio] 0.1 % 0-0.5 [facility] Lymphocytes Auto (Bld) [#/Vo l]Ordered By: Chante Narayan on 10-25-2021 Lymphocytes (Bld) [#/Vol] 0.5 10*3/uL 1.00-4.8 [facility] Lymphocytes/100 WBC Auto (Bl d)Ordered By: Chante Narayan on 10-25-2021 Lymphocytes/100 WBC (Bld) 9.4 % . [facility] MCH Auto (RBC) [Entitic mass ]Ordered By: Chante Narayan on 10-25-2021 MCH (RBC) [Entitic mass] 29.3 pg 27.5-35.2 [facility] MCHC Auto (RBC) [Mass/Vol]Or dered By: Chante Narayan on 10-25-2021 MCHC (RBC) [Mass/Vol] 33.8 g/dL 32.5-35.6 [facility] MCV Auto (RBC) [Entitic vol] Ordered By: Chante Narayan on 10-25-2021 MCV (RBC) [Entitic vol] 86.7 fL 83.5-101 [facility] Monocytes Auto (Bld) [#/Vol] Ordered By: Chante Narayan on 10-25-2021 Monocytes (Bld) [#/Vol] 0.8 10*3/uL 0.0-0.8 [facility] Monocytes/100 WBC Auto (Bld) Ordered By: Chante Narayan on 10-25-2021 Monocytes/100 WBC (Bld) 14.5 % . [facility] Neutrophils Auto (Bld) [#/Vo l]Ordered By: Chante Narayan on 10-25-2021 Neutrophils (Bld) [#/Vol] 4.0 10*3/uL 1.8-7.7 [facility] Neutrophils/100 WBC Auto (Bl d)Ordered By: Chante Narayan on 10-25-2021 Neutrophils/100 WBC (Bld) 69.1 % . [facility] No Panel InformationOrdered By: Chante Narayan on 10-25-2021 Estimated GFR () > 60 mL/Min [facility] Comment on above: GFR estimated refere nce range: According to KDOQI guidelines, <60 ml/min/1.73m2 is sufficient to diagnose a patient with chronic kidney disease. Pharmacy Creatinine Clearance (Chem 60.35 [facility] Platelet mean volume Auto (B ld) [Entitic vol]Ordered By: Chante Narayan on 10-25-2021 Platelet mean volume (Bld) [Entitic vol] 8.6 fL 6.6-10.1 [facility] Platelets Auto (Bld) [#/Vol] Ordered By: Chante Narayan on 10-25-2021 Platelets (Bld) [#/Vol] 159 10*3/uL 150-450 [facility] RBC Auto (Bld) [#/Vol]Ordere d By: Chante Narayan on 10-25-2021 RBC (Bld) [#/Vol] 3.81 10*6/uL 3.90-5.60 [facility] Serum or plasma calcium sergei urement (mass/volume)Ordered By: Cahnte Narayan on 10-25-2021 Calcium [Mass/Vol] 9.1 mg/dL 8.2-10.2 [facility] Serum or plasma chloride zofia surement (moles/volume)Ordered By: Chante Narayan on 10-25-2021 Chloride [Moles/Vol] 102 mmol/L 95-114 [facility] Serum or plasma glucose sergei urement (mass/volume)Ordered By: Chante Narayan on 10-25-2021 Glucose [Mass/Vol] 176 mg/dL 70-100 [facility] Comment on above: ADA recommended refe rence range Random Glucose Reference Range is dependent on time and content of last meal. Glucose of more than 200 mg/dL in a nonstressed, ambulatory subject supports the diagnosis of Diabetes Mellitus. Serum or plasma potassium me asurement (moles/volume)Ordered By: Chante Narayan on 10-25-2021 Potassium [Moles/Vol] 3.6 mmol/L 3.5-5.1 [facility] Serum or plasma sodium measu rement (moles/volume)Ordered By: Chante Narayan on 10-25-2021 Sodium [Moles/Vol] 136 mmol/L 136-146 [facility] Serum or plasma total carbon dioxide measurement (moles/volume)Ordered By: Chante Narayan on 10-25-2021 CO2 [Moles/Vol] 25.8 mmol/L 22.0-30.0 [facility] Serum or plasma urea nitroge n measurement (mass/volume)Ordered By: Chante Narayan on 10-25-2021 Urea nitrogen [Mass/Vol] 32 mg/dL 9-23 [facility] Albumin [Mass/volume] in Ser um or PlasmaOrdered By: Chante Narayan on 10-22-2021 Albumin [Mass/Vol] 3.1 g/dL 3.2-5.5 [facility] Globulin Calc (S) [Mass/Vol] Ordered By: Chante Narayan on 10-22-2021 Globulin (S) [Mass/Vol] 3.0 g/dL [facility] Protein [Mass/volume] in Ser um or PlasmaOrdered By: Chante Narayan on 10-22-2021 Protein [Mass/Vol] 6.1 g/dL 6.1-7.9 [facility] Serum or plasma alanine dasilva otransferase measurement without P-5'-P (enzymatic activiOrdered By: Chante Narayan on 10-22-2021 ALT No additional P-5'-P [Catalytic activity/Vol] 21 U/L 10-60 [facility] Serum or plasma albumin/glob ulin mass ratioOrdered By: Chante Narayan on 10-22-2021 Albumin/Globulin [Mass ratio] 1.0 {ratio} [facility] Serum or plasma alkaline bob sphatase measurement (enzymatic activity/volume)Ordered By: Chante Narayan on 10-22-2021 ALP [Catalytic activity/Vol] 71 U/L 32-92 [facility] Serum or plasma aspartate am inotransferase measurement (enzymatic activity/volume)Ordered By: Chante Narayan on 10-22-2021 AST [Catalytic activity/Vol] 23 U/L 10-42 [facility] Serum or plasma prealbumin m easurement (mass/volume)Ordered By: Chante Narayna on 10-22-2021 Prealbumin [Mass/Vol] 19.4 mg/dL 18.0-38.0 [facility] Serum or plasma total biliru bin measurement (mass/volume)Ordered By: Chante Narayan on 10-22-2021 Bilirubin [Mass/Vol] 1.0 mg/dL 0.3-1.2 [facility] Bacteria identified Anaer cx Nom (Unsp spec)Ordered By: Reddy Brandt on 10-21-2021 Anaerobic microbial culture No Anaerobes Isolated 3 Days [facility] COVID-19 Positive/NegativeOr dered By: Reddy Brandt on 10-21-2021 SARS-CoV-2 (COVID-19) N gene MEREDITH+probe Ql (Resp) Negative Negative [facility] Comment on above: Testing for SARS-CoV -2 by RT-PCR This test was developed and its performance characteristics determined by [employer] ([employer]) and validated at the [facility]. This test has not been FDA cleared [...] Brandt on 10-21-2021 Glucose [Mass/Vol] 298 mg/dL [facility] Comment on above: Random Glucose Refer ence Range is dependent on time and content of last meal. Glucose of more than 200 mg/dL in a nonstressed, ambulatory subject supports the diagnosis of Diabetes Mellitus. No Panel InformationOrdered By: Reddy Brandt on 10-21-2021 Bedside Glucose Comment Glu2: cleaned meter [facility] Bedside Glucose #2 Comment Cleaned meter [facility] ABO and Rh group post transf usion reaction Nom (Bld)Ordered By: Reddy Brandt on 10-19-2021 Microscopic observation Gram stain Nom (Unsp spec) [facility] COVID-19 Positive/NegativeOr dered By: Reddy Brandt on 10-14-2021 SARS-CoV-2 (COVID-19) N gene MEREDITH+probe Ql (Resp) Negative Negative [facility] Comment on above: Testing for SARS-CoV -2 by RT-PCR This test was developed and its performance characteristics determined by [employer] ([employer]) and validated at the [facility]. This test has not been FDA cleared [...] 0.0-0.2 [facility] Basophils/100 WBC Auto (Bld) Ordered By: Reddy Brandt on 10-06-2021 Basophils/100 WBC (Bld) 0.6 % . [facility] Blood hemoglobin measurement (mass/volume)Ordered By: Reddy Brandt on 10-06-2021 Hemoglobin (Bld) [Mass/Vol] 13.7 g/dL 13.0-17.0 [facility] Blood leukocytes automated c ount (number/volume)Ordered By: Reddy Brandt on 10-06-2021 WBC (Bld) [#/Vol] 7.8 10*3/uL 4.5-11.0 [facility] Creatinine and Glomerular fi ltration rate.predicted panel (S/P/Bld)Ordered By: Reddy Brandt on 10-06-2021 Creatinine [Mass/Vol] 1.76 mg/dL 0.64-1.27 [facility] Eosinophils Auto (Bld) [#/Vo l]Ordered By: Reddy Brandt on 10-06-2021 Eosinophils (Bld) [#/Vol] 0.4 10*3/uL 0.0-0.45 [facility] Eosinophils/100 WBC Auto (Bl d)Ordered By: Reddy Brandt on 10-06-2021 Eosinophils/100 WBC (Bld) 4.9 % . [facility] Erythrocyte distribution wid th Auto (RBC) [Ratio]Ordered By: Reddy Brandt on 10-06-2021 Erythrocyte distribution width (RBC) [Ratio] 18.8 % 12.0-14.8 [facility] Erythrocyte sedimentation ra te by Photometric methodOrdered By: Reddy Brandt on 10-06-2021 ESR Photometric method (Bld) [Velocity] 21 mm/hr 0-19 [facility] Estimated glomerular filtrat ion rate (GFR) non- AmericanOrdered By: Reddy Brandt on 10-06-2021 GFR/1.73 sq M.predicted among non-blacks MDRD (S/P/Bld) [Vol rate/Area] 39 mL/Min [facility] Glucose mean value [Mass/vol ume] in Blood Estimated from glycated hemoglobinOrdered By: Reddy Brandt on 10-06-2021 Average glucose Estimated from glycated hemoglobin (Bld) [Mass/Vol] 163 mg/dL [facility] Hematocrit Auto (Bld) [Volum e fraction]Ordered By: Reddy Brandt on 10-06-2021 Hematocrit (Bld) [Volume fraction] 41.1 % 38.8-50.0 [facility] Hemoglobin A1c percentageOrd ered By: Reddy Brandt on 10-06-2021 HbA1c (Bld) [Mass fraction] 7.3 % 4.3-5.6 [facility] Comment on above: Increased risk for d iabetes: 5.7 - 6.4 diabetes: >6.4 glycemic control for adults with diabetes: <7.0 Laboratory - Hematology and Cell countsOrdered By: Reddy Brandt on 10-06-2021 Nucleated RBC/100 WBC (Bld) [Ratio] 0.0 % 0-0.5 [facility] Lymphocytes Auto (Bld) [#/Vo l]Ordered By: Reddy Brandt on 10-06-2021 Lymphocytes (Bld) [#/Vol] 0.8 10*3/uL 1.00-4.8 [facility] Lymphocytes/100 WBC Auto (Bl d)Ordered By: Reddy Brandt on 10-06-2021 Lymphocytes/100 WBC (Bld) 10.9 % . [facility] MCH Auto (RBC) [Entitic mass ]Ordered By: Reddy Brandt on 10-06-2021 MCH (RBC) [Entitic mass] 28.8 pg 27.5-35.2 [facility] MCHC Auto (RBC) [Mass/Vol]Or dered By: Reddy Brandt on 10-06-2021 MCHC (RBC) [Mass/Vol] 33.3 g/dL 32.5-35.6 [facility] MCV Auto (RBC) [Entitic vol] Ordered By: Reddy Brandt on 10-06-2021 MCV (RBC) [Entitic vol] 86.3 fL 83.5-101 [facility] Monocytes Auto (Bld) [#/Vol] Ordered By: Reddy Brandt on 10-06-2021 Monocytes (Bld) [#/Vol] 0.9 10*3/uL 0.0-0.8 [facility] Monocytes/100 WBC Auto (Bld) Ordered By: Reddy Brandt on 10-06-2021 Monocytes/100 WBC (Bld) 11.8 % . [facility] Neutrophils Auto (Bld) [#/Vo l]Ordered By: Reddy Brandt on 10-06-2021 Neutrophils (Bld) [#/Vol] 5.6 10*3/uL 1.8-7.7 [facility] Neutrophils/100 WBC Auto (Bl d)Ordered By: Reddy Brandt on 10-06-2021 Neutrophils/100 WBC (Bld) 71.8 % . [facility] No Panel InformationOrdered By: Reddy Brandt on 10-06-2021 Estimated GFR () 48 mL/Min [facility] Comment on above: GFR estimated refere nce range: According to KDOQI guidelines, <60 ml/min/1.73m2 is sufficient to diagnose a patient with chronic kidney disease. Pharmacy Creatinine Clearance (Chem N/A [facility] Platelet mean volume Auto (B ld) [Entitic vol]Ordered By: Reddy Brandt on 10-06-2021 Platelet mean volume (Bld) [Entitic vol] 9.1 fL 6.6-10.1 [facility] Platelets Auto (Bld) [#/Vol] Ordered By: Reddy Brandt on 10-06-2021 Platelets (Bld) [#/Vol] 131 10*3/uL 150-450 [facility] RBC Auto (Bld) [#/Vol]Ordere d By: Reddy Brandt on 10-06-2021 RBC (Bld) [#/Vol] 4.77 10*6/uL 3.90-5.60 [facility] Serum or plasma C reactive p rotein measurement (mass/volume)Ordered By: Reddy Brandt on 10-06-2021 CRP [Mass/Vol] 0.5 mg/dL 0.0-1.0 [facility] Serum or plasma chloride zofia surement (moles/volume)Ordered By: Reddy Brandt on 10-06-2021 Chloride [Moles/Vol] 93 mmol/L 95-114 [facility] Serum or plasma potassium me asurement (moles/volume)Ordered By: Reddy Brandt on 10-06-2021 Potassium [Moles/Vol] 3.8 mmol/L 3.5-5.1 [facility] Serum or plasma sodium measu rement (moles/volume)Ordered By: Reddy Brandt on 10-06-2021 Sodium [Moles/Vol] 139 mmol/L 136-146 [facility] Serum or plasma total carbon dioxide measurement (moles/volume)Ordered By: Reddy Brandt on 10-06-2021 CO2 [Moles/Vol] 31.4 mmol/L 22.0-30.0 [facility] Serum or plasma urea nitroge n measurement (mass/volume)Ordered By: Reddy Brandt on 10-06-2021 Urea nitrogen [Mass/Vol] 52 mg/dL 9-23 [facility] WOUND CULTUREon 09-12-2021 Bacteria identified Aer cx Nom (Unsp spec) Final report Normal [facility] Comment on above: Performed By: #### C XWND ####[facility] X[address]pr[address] [place] [address]Dr. Anjali Reagan Result 1 Mixed skin areli Normal [facility] Comment on above: Performed By: #### C XWND ####[facility] L[address]yguhbq[address] [place] [address]Dr. Anjali Reagan CBC AUTO DIFFon 09-09-2021 BASO # 0.0 103/ul Normal 0.0-0.1 [facility] Comment on above: Performed By: #### C BC ####[facility] [address]wixp[address] [place], [place] [address]Dr. Anjali Reagan Basophils/100 WBC (Bld) 0.6 % Normal 0.2-2.0 [facility] Comment on above: Performed By: #### C BC ####[facility] Y[address]arc[address] [place], [place] [address]Dr. Anjali Reagan EO # 0.3 103/ul Normal 0.0-0.7 [facility] Comment on above: Performed By: #### C BC ####[facility] Wh[address] [place], [place] [address]Dr. Anjali Reagan Eosinophils/100 WBC (Bld) 4.1 % Normal 0.9-7.0 [facility] Comment on above: Performed By: #### C BC ####[facility] Xhitegiyvd[address] [place], [place] [address]Dr. Anjali Reagan Erythrocyte distribution width (RBC) [Ratio] 16.1 % Critically high 11.0-15.0 [facility] Comment on above: Performed By: #### C BC ####[facility] Egvooatcxn[address] [place], [place] [address]Dr. Anjali Reagan Hematocrit (Bld) [Volume fraction] 38.3 % Critically low 42.0-54.0 [facility] Comment on above: Performed By: #### C BC ####[facility] Zpzmgwt[address] [place], [place] [address]Dr. Anjali Reagan Hemoglobin (Bld) [Mass/Vol] 12.0 g/dL Critically low 14.0-18.0 [facility] Comment on above: Performed By: #### C BC ####[facility] Wltswx[address] [place] [address]Dr. Anjali Reagan IG # 0.04 10e3/ul Critically high 0.00-0.03 [facility] Comment on above: Performed By: #### C BC ####[facility] Mkopmhnyek[address] [place] [address]Dr. Anjali Reagan IG % 0.6 % Critically high 0.0-0.5 [facility] Comment on above: Performed By: #### C BC ####[facility] Vvxtlegeee75[address] [place] [address]Dr. Biancaramona Tez LYMPH # 0.9 103/ul Critically low 1.2-3.8 [facility] Comment on above: Performed By: #### C BC ####[facility] Damlatzmvk[address] [place] [address]Dr. Anjali Reagan Lymphocytes/100 WBC (Bld) 12.6 % Critically low 20.5-60.0 [facility] Comment on above: Performed By: #### C BC ####[facility] Yytfohqcmd[address] [place] [address]Dr. Biancaramona Reagan MANUAL DIFF REQ NO Normal [facility] Comment on above: Performed By: #### C BC ####[facility] Zxmwiowpqc[address] [place] [address]Dr. Anjali Reagan MCH (RBC) [Entitic mass] 27.5 pg Normal 25.9-34.0 [facility] Comment on above: Performed By: #### C BC ####[facility] Ahrfoqiybd[address] [place] [address]Dr. Anjali Tez MCHC (RBC) [Mass/Vol] 31.3 g/dL Normal 29.9-35.2 [facility] Comment on above: Performed By: #### C BC ####[facility] Lsrguszpol[address] [place], [place] [address]Dr. Anjali Tez MCV (RBC) [Entitic vol] 87.6 fL Normal 80.0-94.0 [facility] Comment on above: Performed By: #### C BC ####[facility] [address]thlortgp[address] [place] [id number]. Anjali Reagan MONO # 0.7 103/ul Normal 0.3-0.8 [facility] Comment on above: Performed By: #### C BC ####[facility] Zoamifkiok[address] [place] [id number]. Anjali Reagan Monocytes/100 WBC (Bld) 10.3 % Normal 1.7-12.0 [facility] Comment on above: Performed By: #### C BC ####[facility] Bjjreitlvv[address] [place] [id number]. Anjali Reagan NEUT # 5.1 103/ul Normal 1.4-6.5 [facility] Comment on above: Performed By: #### C BC ####[facility] Jwevnmlwiu44[address] [place] [id number]. Anjali Reagan Neutrophils/100 WBC (Bld) 71.8 % Normal 43.0-75.0 [facility] Comment on above: Performed By: #### C BC ####[facility] Cjhgwngrhw[address] [place] [id number]. Anjali Reagan Platelet mean volume (Bld) [Entitic vol] 9.4 fL Critically low 9.5-13.5 [facility] Comment on above: Performed By: #### C BC ####[facility] I[address]kbkdf[address] [place] [id number]. Anjali Reagan PLT 249 103/ul Normal 150-450 [facility] Comment on above: Performed By: #### C BC ####[facility] Ytctmqnhwb7[address] [place] [id number]. Anjali Reagan RBC 4.37 106/ul Critically low 4.70-6.10 [facility] Comment on above: Performed By: #### C BC ####[facility] Yjwzpjfevj4534 [place] [id number]. Anjali Reagan WBC 7.1 103/ul Normal 4.0-11.0 [facility] Comment on above: Performed By: #### C BC ####[facility] Fedopdcigh[address] [place] [id number]. Anjali Reagan CRPon 09-09-2021 CRP 1.9 mg/dL Critically high <=1.0 [facility] Comment on above: Performed By: #### C RP, CMP ####[facility] V[address]ldnranzt[address] [place] [address]Dr. Anjali Reagan GRAM STAINon 09-09-2021 COMMENTS NO ORGANISMS OBSERVED Normal [facility] Comment on above: Performed By: #### G STAIN ####[facility] Pwrxhgnhqn[address] [place] [address]Dr. Anjali Reagan DIPHTHEROIDS Normal [facility] Comment on above: Performed By: #### G STAIN ####[facility] Zqqlq[address]qv[address] [place], [place] [address]Dr. Anjali Reagan EPITHELIALS Normal [facility] Comment on above: Performed By: #### G STAIN ####[facility] Ljqolpxpcc[address] [place], [place] [address]Dr. Anjali Reagan FUNGAL ELEMENTS Normal [facility] Comment on above: Performed By: #### G STAIN ####[facility] Vonkhfbzbp[address] [place], [place] [address]Dr. Anjali Reagan GRAM NEG BACILLI Normal [facility] Comment on above: Performed By: #### G STAIN ####[facility] Yrhpaqlufm[address] [place], [place] [address]Dr. Anjali Reagan GRAM NEG DIPPLOCOCCI Normal [facility] Comment on above: Performed By: #### G STAIN ####[facility] Ycllpbtbap[address] [place], [place] [address]Dr. Anjali Reagan GRAM POS BACILLI Normal [facility] Comment on above: Performed By: #### G STAIN ####[facility] Tochtjdfby[address] [place] [address]Dr. Anjali Reagan GRAM POSITIVE COCCI Normal [facility] Comment on above: Performed By: #### G STAIN ####[facility] Medmlnavkn[address] [place], [place] [address]Dr. Anjali Reagan GRAM STAIN SOURCE Left foot lateral Normal [facility] Comment on above: Performed By: #### G STAIN ####[facility] Aviitjrycj[address] [place] [address]Dr. Anjali Reagan GS_DIPTH Normal [facility] Comment on above: Performed By: #### G STAIN ####[facility] Wxqobyabfv8318 [place] [address]Dr. Anjali Reagan WBC RARE Normal [facility] Comment on above: Performed By: #### G STAIN ####[facility] Uceqofcyux6675 [place] [address]Dr. Anjali Reagan PROF 14(COMP METB)on 022 Albumin [Mass/Vol] 3.5 g/dL Normal 3.4-5.0 [facility] Comment on above: Performed By: #### C RP, CMP ####[facility] Sipqiyhufg[address] [place], [place] [address]Dr. Anjali Reagan Albumin/Globulin [Mass ratio] 0.8 {ratio} Normal [facility] Comment on above: Performed By: #### C RP, CMP ####[facility] Hjcyjctwqq[address] [place], [place] [address]Dr. Anjali Reagan ALP [Catalytic activity/Vol] 136 U/L Critically high 46-116 [facility] Comment on above: Performed By: #### C RP, CMP ####[facility] Ihokzzhygu58[address] [place] [address]Dr. Anjali Reagan ALT [Catalytic activity/Vol] 34 U/L Normal 16-63 [facility] Comment on above: Performed By: #### C RP, CMP ####[facility] Exbxrundzq3574 [place] [address]Dr. Anjali Reagan Anion gap [Moles/Vol] 12.9 mmol/L Normal [facility] Comment on above: Performed By: #### C RP, CMP ####[facility] Qnmpxfjhqx[address] [place], [place] [address]Dr. Anjali Reagan AST [Catalytic activity/Vol] 27 U/L Normal 15-37 [facility] Comment on above: Performed By: #### C RP, CMP ####[facility] Urrynusipn[address] [place], [place] [address]Dr. Anjail Reagan Bilirubin [Mass/Vol] 0.4 mg/dL Normal 0.2-1.0 [facility] Comment on above: Performed By: #### C RP, CMP ####[facility] Fxzanqxpkn[address] [place], [place] [address]Dr. Anjali Reagan Calcium [Mass/Vol] 9.7 mg/dL Normal 8.5-10.1 [facility] Comment on above: Performed By: #### C RP, CMP ####[facility] Xqeassvmbb[address] [place], [place] [address]Dr. Anjali Reagan Chloride [Moles/Vol] 103 mmol/L Normal 98-107 [facility] Comment on above: Performed By: #### C RP, CMP ####[facility] Extvdrsnjk[address] [place], [place] [address]Dr. Anjali Reagan CO2 [Moles/Vol] 28.9 mmol/L Normal 21.0-32.0 [facility] Comment on above: Performed By: #### C RP, CMP ####[facility] Kvdlymlced[address] [place], [place] [address]Dr. Anjali Reagan Creatinine [Mass/Vol] 1.57 mg/dL Critically high 0.70-1.30 [facility] Comment on above: Performed By: #### C RP, CMP ####[facility] Greiecidyl[address] [place], [place] [address]Dr. Anjali Reagan EGFR-AF MALIAN 54 mL/min/1.73m2 Critically low >=60 [facility] Comment on above: Performed By: #### C RP, CMP ####[facility] Aoqowabdin[address] [place], [place] [address]Dr. Anjali Reagan EGFR-NON AF MALIAN 45 mL/min/1.73m2 Critically low >=60 [facility] Comment on above: Performed By: #### C RP, CMP ####[facility] Lvkfaocyuh[address] [place], [place] [address]Dr. Anjali Reagan Globulin (S) [Mass/Vol] 4.5 g/dL Normal [facility] Comment on above: Performed By: #### C RP, CMP ####[facility] Hbzcqgedcf4884 [place] [id number]. Anjali Reagan Glucose [Mass/Vol] 174 mg/dL Critically high 74-106 [facility] Comment on above: Performed By: #### C RP, CMP ####[facility] Rzifghsjcs1574 [place] [id number]. nAjali Reagan Potassium [Moles/Vol] 4.8 mmol/L Normal 3.5-5.1 [facility] Comment on above: Performed By: #### C RP, CMP ####[facility] Pctlzsdedt3493 [place] [id number]. Anjali Reagan Protein [Mass/Vol] 8.0 g/dL Normal 6.4-8.2 [facility] Comment on above: Performed By: #### C RP, CMP ####[facility] Hupibzsuct75[address] [place] [address]Dr. Anjali Reagan Sodium [Moles/Vol] 140 mmol/L Normal 136-145 [facility] Comment on above: Performed By: #### C RP, CMP ####[facility] A[address]uugcnd[address] [place] [address]Dr. Anjali Reagan Urea nitrogen [Mass/Vol] 34.0 mg/dL Critically high 7.0-18 .0 [facility] Comment on above: Performed By: #### C RP, CMP ####[facility] We[address]fflpdbd[address] [place], [place] [address]Dr. Anjali Reagan Urea nitrogen/Creatinine [Mass ratio] 21.7 mg/mg [facility] Comment on above: Performed By: #### C RP, CMP ####[facility] Yfojdxcfvy1686 [place] [address]Dr. Anjali Reagan XR FOOT RT MIN 3 VIEWSon XR FOOT RT MIN 3 VIEWS Normal [facility] XR ANKLE RT MIN 3 VIEWSon XR ANKLE RT MIN 3 VIEWS Normal [facility] CULTURE BLOODon 08-26-2021 Microscopic examination of blood, culture Culture Observations: NO GROWTH AT 5 DAYS. Normal [facility] Comment on above: Performed By: #### B LDCX2 ####[facility] Rthmibeyoo[address] [place], [place] [address]Dr. Anjali Reagan Microscopic examination of blood, culture Culture Observations: NO GROWTH AT 5 DAYS. Normal [facility] Comment on above: Performed By: #### B LDCX1 ####[facility] [address]lh[address] [place], [place] [address]Dr. Anjali Reagan PREALBUMINon 08-26-2021 Prealbumin [Mass/Vol] 14 mg/dL Normal 10-36 [facility] Comment on above: Performed By: #### P REALBL ####[facility] Juhpqhrcga[address] [place], [place] [address]Dr. Anjali Reagan CBC W MANUAL DIFFon 08-25-19 ANISOCYTOSIS SLIGHT Normal [facility] Comment on above: Performed By: #### C CORI ####[facility] Ylufpzgtcx[address] [place], [place] [address]Dr. Anjali Reagan ATYPICAL LYMPH # Normal [facility] Comment on above: Performed By: #### C CORI ####[facility] Bzwifjptxu[address] [place], [place] [address]Dr. Anjali Reagan ATYPICAL LYMPH % Normal [facility] Comment on above: Performed By: #### C CORI ####[facility] Mjejoecoap[address] [place], [place] [address]Dr. Anjali Reagan BAND # Normal 0.0-0.3 [facility] Comment on above: Performed By: #### C CORI ####[facility] Tnmgj[address]xl[address] [place], [place] [address]Dr. Anjali Reagan BAND % Normal 0-5 [facility] Comment on above: Performed By: #### C CORI ####[facility] [address]ohlopxmql[address] [place], [place] [address]Dr. Anjali Reagan BASOM # 0.00 103/ul Normal 0.00-0.10 [facility] Comment on above: Performed By: #### C CORI ####[facility] Zptpnczano[address] [place], [place] [address]Dr. Anjali Reagan BASOM % 0.0 % Critically low 0.2-2.0 [facility] Comment on above: Performed By: #### C CORI ####[facility] J[address]sthbnxk[address] [place] [address]Dr. Anjali Reagan BLAST # Normal [facility] Comment on above: Performed By: #### C CORI ####[facility] Jdbsfnukld[address] [place] [id number]. Anjali Reagan BLAST % Normal [facility] Comment on above: Performed By: #### C CORI ####[facility] Wgqplenhan9[address] [place] [address]Dr. Anjali Reagan CORRECTED WBC Normal 4.0-11.0 [facility] Comment on above: Performed By: #### C CORI ####[facility] Vcvpnqscvm6419 [place] [address]Dr. Anjali Reagan EOS # 0.34 103/ul Normal 0.00-0.70 [facility] Comment on above: Performed By: #### C CORI ####[facility] [address]ujkvbcu[address] [place], [place] [address]Dr. Anjali Reagan EOS% 3.0 % Normal 0.9-7.0 [facility] Comment on above: Performed By: #### C CORI ####[facility] [address]klwyl[address] [place] [address]Dr. Anjali Reagan HCT 36.2 % Critically low 42.0-54.0 [facility] Comment on above: Performed By: #### C CORI ####[facility] Adjnumymxk[address] [place] [address]Dr. Anjali Reagan HGB 11.8 g/dl Critically low 14.0-18.0 [facility] Comment on above: Performed By: #### C CORI ####[facility] Rhbxscvqmg[address] [place], [place] [address]Dr. Anjali Reagan LYMPHM # 1.03 103/ul Critically low 1.20-3.80 [facility] Comment on above: Performed By: #### C CORI ####[facility] Akhxyotxqr3021 [place] [id number]. Anjali Reagan LYMPHM% 9.0 % Critically low 20.5-60.0 [facility] Comment on above: Performed By: #### C CORI ####[facility] Zdvggfewzh6389 [place] [id number]. nAjali Reagan MCH 28.0 pg Normal 25.9-34.0 [facility] Comment on above: Performed By: #### C CORI ####[facility] Nyzqntgcyw1048 [place] [id number]. Anjali Reagan MCHC 32.6 g/dl Normal 29.9-35.2 [facility] Comment on above: Performed By: #### C CORI ####[facility] Grlcovlvsr6869 [place] [address]Dr. Anjali Reagan MCV 85.8 fL Normal 80.0-94.0 [facility] Comment on above: Performed By: #### C CORI ####[facility] Hsidbothed[address] [place], [place] [address]Dr. Anjali Reagan METAMYELOCYTE # Normal [facility] Comment on above: Performed By: #### C CORI ####[facility] Ezmusuqtab84[address] [place], [place] [address]Dr. Anjali Reagan METAMYELOCYTE % Normal [facility] Comment on above: Performed By: #### C CORI ####[facility] Ecmnukesem6480 [place] [address]Dr. Anjali Reagan MONOM# 1.61 103/ul Critically high 0.30-0.80 [facility] Comment on above: Performed By: #### C CORI ####[facility] Vkktnyznnm1124 [place] [id number]. Anjali Reagan MONOM% 14.0 % Critically high 1.7-12.0 [facility] Comment on above: Performed By: #### C CORI ####[facility] Henunfupdo8392 [place] [phone]. Anjali Reagan MPV 8.9 fL Critically low 9.5-13.5 [facility] Comment on above: Performed By: #### C BCFIONA ####[facility] Qkgodqdtkt2401 [place], [place] [address]Rv. Anjali Reagan MYELOCYTE # Normal [facility] Comment on above: Performed By: #### C BCFIONA ####[facility] Wslrraavhq6256 [place], [place] [address]Or. Anjali Reagan MYELOCYTE % Normal [facility] Comment on above: Performed By: #### C BCFIONA ####[facility] Vsjhurmsyp0706 [place], [place] [address]On. Anjali Reagan NRBC Normal [facility] Comment on above: Performed By: #### C CORI ####[facility] Qjwtjljuka2756 [place] [phone]. Anjali Reagan PLT 263 103/ul Normal 150-450 [facility] Comment on above: Performed By: #### C CORI ####[facility] Jcmvehxcuz5049 [place] [phone]. Anjali Reagan RBC 4.22 106/ul Critically low 4.70-6.[address] [facility] Comment on above: Performed By: #### C CORI ####[facility] Cvearhbaru5532 [place] [phone]. Anjali Reagan RDW 16.0 % Critically high 11.0-15.[address] [facility] Comment on above: Performed By: #### C CORI ####[facility] Wagjhcotsz9731 [place] [phone]. Anjali Reagan SEG # 8.51 103/ul Critically high 1.40-6.50 [facility] Comment on above: Performed By: #### C BCFIONA ####[facility] Akoxitctko4957 [place] [phone]. Anjali Reagan SEG % 74.0 % Normal 43.0-75.0 [facility] Comment on above: Performed By: #### C BCFIONA ####[facility] Crhdpxmrkz2683 [place], [place] [address]Wf. Anjali Reagan WBC 11.5 103/ul Critically high 4.0-11.0 [facility] Comment on above: Performed By: #### C BCMAN ####[facility] Jwndusdrhf1710 [place] [address]Dr. Anjali Reagan CRPon 08-24-2021 CRP 11.6 mg/dL Critically high <=1.[address] [facility] Comment on above: Performed By: #### C RP, CMP ####[facility] Luoerlvprw8471 [place] [address]Dr. Anjali Reagan PROF 14(COMP METB)on 022 Albumin [Mass/Vol] 3.2 g/dL Critically low 3.4-5.0 [facility] Comment on above: Performed By: #### C RP, CMP ####[facility] Llnzmdakof[address] [place], [place] [address]Dr. Anjali Reagan Albumin/Globulin [Mass ratio] 0.7 {ratio} Normal [facility] Comment on above: Performed By: #### C RP, CMP ####[facility] Vmbattqfse[address] [place], [place] [address]Dr. Anjali Reagan ALP [Catalytic activity/Vol] 107 U/L Normal 46-116 [facility] Comment on above: Performed By: #### C RP, CMP ####[facility] Tyugzwferp4566[address] [place], [place] [address]Dr. Anjali Reagan ALT [Catalytic activity/Vol] 57 U/L Normal 16-63 [facility] Comment on above: Performed By: #### C RP, CMP ####[facility] Xvisnhbziv8377[address] [place], [place] [address]Dr. Anjali Reagan Anion gap [Moles/Vol] 13.7 mmol/L Normal [facility] Comment on above: Performed By: #### C RP, CMP ####[facility] Lzyhyxrjjo87[address] [place], [place] [address]Dr. Anjali Reagan AST [Catalytic activity/Vol] 40 U/L Critically high 15-37 [facility] Comment on above: Performed By: #### C RP, CMP ####[facility] Ksejvabywk9[address] [place], [place] [address]Dr. Anjali Reagan Bilirubin [Mass/Vol] 0.6 mg/dL Normal 0.2-1.0 [facility] Comment on above: Performed By: #### C RP, CMP ####[facility] Rlbrwtcfwj7[address] [place], [place] [address]Dr. Anjali Reagan Calcium [Mass/Vol] 9.7 mg/dL Normal 8.5-10.1 [facility] Comment on above: Performed By: #### C RP, CMP ####[facility] Gjuevnzncx6064[address] [place], [place] [address]Dr. Anjali Reagan Chloride [Moles/Vol] 98 mmol/L Normal 98-107 [facility] Comment on above: Performed By: #### C RP, CMP ####[facility] Vdztbdumyn077[address] [place], [place] [address]Dr. Anjali Reagan CO2 [Moles/Vol] 30.0 mmol/L Normal 21.0-32.0 [facility] Comment on above: Performed By: #### C RP, CMP ####[facility] Rcrccqewvt4218[address] [place], [place] [address]Dr. Anjali Reagan Creatinine [Mass/Vol] 1.73 mg/dL Critically high 0.70-1.30 [facility] Comment on above: Performed By: #### C RP, CMP ####[facility] Shalhbmgah[address] [place], [place] [address]Dr. Anjali Reagan EGFR-AF MALIAN 49 mL/min/1.73m2 Critically low >=60 [facility] Comment on above: Performed By: #### C RP, CMP ####[facility] Zccaylyugc772[address] [place], [place] [address]Dr. Anjali Reagan EGFR-NON AF MALIAN 40 mL/min/1.73m2 Critically low >=60 [facility] Comment on above: Performed By: #### C RP, CMP ####[facility] Qnbgrvsaox275[address] [place], [place] [address]Dr. Anjali Reagan Globulin (S) [Mass/Vol] 4.7 g/dL Normal [facility] Comment on above: Performed By: #### C RP, CMP ####[facility] Jwyohddtxy5273 [place] [address]Dr. Anjali Reagan Glucose [Mass/Vol] 92 mg/dL Normal 74-106 [facility] Comment on above: Performed By: #### C RP, CMP ####[facility] Rraupjkrja9928 [place] [address]Dr. Anjali Reagan Potassium [Moles/Vol] 3.7 mmol/L Normal 3.5-5.1 [facility] Comment on above: Performed By: #### C RP, CMP ####[facility] Vgzbjwzbgx2820 [place] [address]Dr. Anjali Reagan Protein [Mass/Vol] 7.9 g/dL Normal 6.4-8.2 [facility] Comment on above: Performed By: #### C RP, CMP ####[facility] Isffmtcxsk[address] [place], [place] [address]Dr. Anjali Reagan Sodium [Moles/Vol] 138 mmol/L Normal 136-145 [facility] Comment on above: Performed By: #### C RP, CMP ####[facility] Meqjuwmylj[address] [place], [place] [address]Dr. Anjali Reagan Urea nitrogen [Mass/Vol] 50.0 mg/dL Critically high 7.0-18 .0 [facility] Comment on above: Performed By: #### C RP, CMP ####[facility] Pzumttltpz[address] [place], [place] [address]Dr. Anjali Reagan Urea nitrogen/Creatinine [Mass ratio] 28.9 mg/mg Normal [facility] Comment on above: Performed By: #### C RP, CMP ####[facility] Pcljrofcnr7747 [place] [address]Dr. Anjali Reagan SED RATE [facility] 2021 SED RATE 17 mm/hr Normal <=20 [facility] Comment on above: Performed By: #### S EDR ####[facility] Aqpysngoct76[address] [place], [place] [address]Dr. Anjali Reagan CBC (INCLUDES DIFF/PLT)on Basophils (Bld) [#/Vol] 0.034 10*3/uL Normal 0-200 [facility] Comment on above: Performed By: #### 6 399, 496, 718, 13358 #### [facility] [place] [address] Traffic Signal Technician: Juan Meraz MD Basophils/100 WBC (Bld) 0.3 % Normal [facility] Comment on above: Performed By: #### 6 399, 496, 718, 25340 #### [facility] [place] [address] Traffic Signal Technician: Juan Meraz MD Eosinophils (Bld) [#/Vol] 0.023 10*3/uL Normal 15-500 [facility] Comment on above: Performed By: #### 6 399, 496, 718, 35472 #### [facility] [place] [address] Traffic Signal Technician: Juan Meraz MD Eosinophils/100 WBC (Bld) 0.2 % Normal [facility] Comment on above: Performed By: #### 6 399, 496, 718, 39597 #### [facility] [place] [address] Traffic Signal Technician: Juan Meraz MD Erythrocyte distribution width (RBC) [Ratio] 15.6 % High 11.0-15.0 [facility] Comment on above: Performed By: #### 6 399, 496, 718, 84891 #### [facility] [place] [address] Traffic Signal Technician: Juan Meraz MD Hematocrit (Bld) [Volume fraction] 38.9 % Normal 38.5-50.0 [facility] Comment on above: Performed By: #### 6 399, 496, 718, 20015 #### [facility] [place] [address] Traffic Signal Technician: Juan Meraz MD Hemoglobin (Bld) [Mass/Vol] 12.7 g/dL Low 13.2-17.1 [facility] Comment on above: Performed By: #### 6 399, 496, 718, 17740 #### [facility] [place] [address] Traffic Signal Technician: Juan Meraz MD Lymphocytes (Bld) [#/Vol] 0.531 10*3/uL Low 850-3900 [facility] Comment on above: Performed By: #### 6 399, 496, 718, 59428 #### [facility] [place] [address] Traffic Signal Technician: Juan Meraz MD Lymphocytes/100 WBC (Bld) 4.7 % Normal [facility] Comment on above: Performed By: #### 6 399, 496, 718, 12329 #### [facility] [place] [address] Traffic Signal Technician: Juan Meraz MD MCH (RBC) [Entitic mass] 28.2 pg Normal 27.0-33.0 [facility] Comment on above: Performed By: #### 6 399, 496, 718, 05887 #### [facility] [place] [address] Traffic Signal Technician: Juan Meraz MD MCHC (RBC) [Mass/Vol] 32.6 g/dL Normal 32.0-36.[address] [facility] Comment on above: Performed By: #### 6 399, 496, 718, 11469 #### [facility] [place] [address] Traffic Signal Technician: Juan Meraz MD MCV (RBC) [Entitic vol] 86.4 fL Normal 80.0-100.0 [facility] Comment on above: Performed By: #### 6 399, 496, 718, 41691 #### [facility] [place] [address] Traffic Signal Technician: Juan Meraz MD Monocytes (Bld) [#/Vol] 1.119 10*3/uL High 200-950 [facility] Comment on above: Performed By: #### 6 399, 496, 718, 66635 #### [facility] [place] [address] Traffic Signal Technician: Juan Meraz MD Monocytes/100 WBC (Bld) 9.9 % Normal [facility] Comment on above: Performed By: #### 6 399, 496, 718, 75352 #### [facility] [place] [address] Traffic Signal Technician: Juan Meraz MD Neutrophils (Bld) [#/Vol] 9.594 10*3/uL High 0810-7927 [facility] Comment on above: Performed By: #### 6 399, 496, 718, 79805 #### [facility] [place] [address] Traffic Signal Technician: Juan Meraz MD Neutrophils/100 WBC (Bld) 84.9 % Normal [facility] Comment on above: Performed By: #### 6 399, 496, 718, 08279 #### [facility] [place] [address] Traffic Signal Technician: Juan Meraz MD Platelet mean volume (Bld) [Entitic vol] 10.1 fL Normal 7.5-12.5 [facility] Comment on above: Performed By: #### 6 399, 496, 718, 86738 #### [facility] [place] [address] Traffic Signal Technician: Juan Meraz MD Platelets (Bld) [#/Vol] 267 10*3/uL Normal 140-400 [facility] Comment on above: Performed By: #### 6 399, 496, 718, 36474 #### [facility] [place] [address] Traffic Signal Technician: Juan Meraz MD RBC (Bld) [#/Vol] 4.50 10*6/uL Normal 4.20-5.80 [facility] Comment on above: Performed By: #### 6 399, 496, 718, 07129 #### [facility] [address], [address] [place] [address] Traffic Signal Technician: Juan Meraz MD WBC (Bld) [#/Vol] 11.3 10*3/uL High 3.8-10.8 [facility] Comment on above: Performed By: #### 6 399, 496, 718, 99613 #### [facility] [address], [address] [place] [address] Traffic Signal Technician: Juan Meraz MD HEMOGLOBIN A1con 08-23-2021 HEMOGLOBIN [...] Performed By: #### 6 399, 496, 718, 55395 #### [facility] [address], [address] [place] [address] Traffic Signal Technician: Juan Meraz MD PHOSPHATE ( PHOSPHORUS)on 08-23-2021 Phosphate [Mass/Vol] 3.7 mg/dL Normal 2.5-4.5 [facility] Comment on above: Order Comment: PATIE NT UNABLE TO VOID; ADVISED TO RETURN FOR COLLECTION. Performed By: #### 6 399, 496, 718, 98742 #### [facility] [place] [address] Traffic Signal Technician: Juan Meraz MD PTH, INTACT WITHOUT CALCIUMo [...] Performed By: #### 6 399, 496, 718, 67747 #### [facility] [place] [id number] [facility], [address] [place] [address] Traffic Signal Technician: Juan Meraz MD VITAMIN D,25-OH,TOTAL,IAon 0 08-23-2021 [...] D, (D2,D3), LC/MS/MS is recommended: order code 34786 (patients >2yrs). See Note 1 Note 1 For additional information, please refer to http://education.[employer]/faq/LLU931 (This link is being provided for informational/ educational purposes only.) Performed By: #### 6 399, 496, 718, 83027 #### [facility] [address], [address] [place] [address] Traffic Signal Technician: Juan Meraz MD CBC W MANUAL DIFFon 07-06-19 22 ATYPICAL LYMPH # Normal [facility] Comment on above: Performed By: #### Uzair PERSAUD ####[facility] Cfexwsccme2885 [place] [id number]. Anjali Reagan ATYPICAL LYMPH % Normal [facility] Comment on above: Performed By: #### Uzair PERSAUD ####[facility] Vcbveczglg7436 [place], [place] [address]Nl. Anjali Reagan BAND # 0.1 103/ul Normal 0.0-0.3 [facility] Comment on above: Performed By: #### C BCMAN ####[facility] Qtfahfcdsa3211 [place] [id number]. Anjali Reagan BAND % 1 % Normal 0-5 [facility] Comment on above: Performed By: #### C BCMAN ####[facility] Hboioeacny6869 [place] [address]Dr. Anjali Reagan BASOM # 0.00 103/ul Normal 0.00-0.10 [facility] Comment on above: Performed By: #### C BCMAN ####[facility] Soqowidtjz4760 [place] [address]Dr. Anjali Reagan BASOM % 0.0 % Critically low 0.2-2.0 [facility] Comment on above: Performed By: #### C BCMAN ####[facility] Awfnwdnedq4385 [place] [address]Dr. Anjali Reagan BLAST # Normal [facility] Comment on above: Performed By: #### C BCFIONA ####[facility] Ib[address]zlbxmi[address] [place], [place] [address]Dr. Yiramona Reagan BLAST % Normal [facility] Comment on above: Performed By: #### C BCFIONA ####[facility] Uktlelroai3519 [place] [address]Dr. Anjali Reagan CORRECTED WBC Normal 4.0-11.0 [facility] Comment on above: Performed By: #### C BCFIONA ####[facility] Dpahlfgvdq4237 [place] [address]Dr. Anjali Reagan EOS # 0.16 103/ul Normal 0.00-0.70 [facility] Comment on above: Performed By: #### C BCMAN ####[facility] Hdytodqeus[address] [place], [place] [address]Dr. Anjali Reagan EOS% 2.0 % Normal 0.9-7.0 [facility] Comment on above: Performed By: #### C BCMAN ####[facility] Gchirmbxpt4338 [place] [address]Dr. Anjali Reagan HCT 35.3 % Critically low 42.0-54.0 [facility] Comment on above: Performed By: #### C CORI ####[facility] Egocnopkkq6378 [place] [id number]. Anjali Reagan HGB 11.4 g/dl Critically low 14.0-18.0 [facility] Comment on above: Performed By: #### C CORI ####[facility] Yynjbisjqy0448 [place] [phone]. Anjali Reagan LYMPHM # 0.70 103/ul Critically low 1.20-3.[address] [facility] Comment on above: Performed By: #### C CORI ####[facility] Wqoddmmbru2504 [place] [phone]. Anjali Reagan LYMPHM% 9.0 % Critically low 20.5-60.0 [facility] Comment on above: Performed By: #### C CORI ####[facility] Xvkxogvvye4108 [place] [address]Dr. Anjali Reagan MCH 27.5 pg Normal 25.9-34.0 [facility] Comment on above: Performed By: #### C CORI ####[facility] Qfiuazvknu8769 [place] [phone]. Anjali Reagan MCHC 32.3 g/dl Normal 29.9-35.2 [facility] Comment on above: Performed By: #### C CORI ####[facility] Jihrketlaq7941 [place] [address]Dr. Anjali Reagan MCV 85.3 fL Normal 80.0-94.0 [facility] Comment on above: Performed By: #### C CORI ####[facility] Lcctzasngd9860 [place] [address]Dr. Anjali Reagan METAMYELOCYTE # Normal [facility] Comment on above: Performed By: #### C CORI ####[facility] Mdovrakmjk4834 [place] [phone]. Anjali Reagan METAMYELOCYTE % Normal [facility] Comment on above: Performed By: #### Uzair PERSAUD ####[facility] Vaxzjiyaag4921 [place] [address]Dr. Anjali Reagan MONOM# 1.09 103/ul Critically high 0.30-0.80 [facility] Comment on above: Performed By: #### C CORI ####[facility] Mopqcpjgsy7629 [place] [address]Dr. Anjali Reagan MONOM% 14.0 % Critically high 1.7-12.0 [facility] Comment on above: Performed By: #### C CORI ####[facility] Jxdovwhywk2328 [place] [address]Dr. Anjali Reagan MPV 9.6 fL Normal 9.5-13.5 [facility] Comment on above: Performed By: #### C CORI ####[facility] Qoygmytllo1981 [place] [address]Dr. Anjali Reagan MYELOCYTE # Normal [facility] Comment on above: Performed By: #### C CORI ####[facility] Svnuvrcdtt5988 [place] [phone]. Anjali Reagan MYELOCYTE % Normal [facility] Comment on above: Performed By: #### C CORI ####[facility] Stjclufbqn3040 [place] [address]Dr. Anjali Reagan NRBC Normal [facility] Comment on above: Performed By: #### C CORI ####[facility] Kkpkinyosn4489 [place], [place] [address]Ox. Anjali Reagan PLT 119 103/ul Critically low 150-450 [facility] Comment on above: Performed By: #### C CORI ####[facility] Bnlxsejdrb4817 [place] [phone]. Anjali Reagan RBC 4.14 106/ul Critically low 4.70-6.10 [facility] Comment on above: Performed By: #### C CORI ####[facility] Cmparwussq0875 [place] [phone]. Anjali Reagan RDW 16.1 % Critically high 11.0-15.0 [facility] Comment on above: Performed By: #### C CORI ####[facility] Yicjvtzafy2942 [place] [phone]. Anjali Reagan SEG # 5.77 103/ul Normal 1.40-6.50 [facility] Comment on above: Performed By: #### C CORI ####[facility] Rtwijfrzkz2945 [place] [id number]. Anjali Reagan SEG % 74.0 % Normal 43.0-75.0 [facility] Comment on above: Performed By: #### C CORI ####[facility] Kuyiorjqix8242 [place] [phone]. Anjali Tez WBC 7.8 103/ul Normal 4.0-11.0 [facility] Comment on above: Performed By: #### Uzair PERSAUD ####[facility] Cobkpiiuvu5969 [place] [address]Dr. Biancaramona Reagan CRPon 07-05-2021 CRP [Mass/Vol] mg/L Critically high <=1.0 [facility] Comment on above: Performed By: #### C RP, BMP ####[facility] Uhflhehpps4106 [place] [address]Dr. Anjali Reagan PROF CHEM 8 (BAS METB)on Anion gap [Moles/Vol] 10.1 mmol/L Normal [facility] Comment on above: Performed By: #### C RP, BMP ####[facility] Hprqutshuw9974 [place] [address]Dr. Anjali Reagan Calcium [Mass/Vol] 9.6 mg/dL Normal 8.5-10.1 [facility] Comment on above: Performed By: #### C RP, BMP ####[facility] Hhupyclxpu2533 [place] [address]Dr. Anjali Reagan Chloride [Moles/Vol] 100 mmol/L Normal 98-107 [facility] Comment on above: Performed By: #### C RP, BMP ####[facility] Nmofwmhutk3084 [place] [address]Dr. Anjali Reagan CO2 [Moles/Vol] 30.4 mmol/L Critically high 22.0-30.0 [facility] Comment on above: Performed By: #### C RP, BMP ####[facility] Gdywswyzuv4496 [place] [phone]. Anjali Reagan Creatinine [Mass/Vol] 1.49 mg/dL Critically high 0.66-1.25 [facility] Comment on above: Performed By: #### C RP, BMP ####[facility] Iepnxpabeb3082 [place] [id number]. Anjali Reagan EGFR-AF MALIAN 58 mL/min/1.73m2 Critically low >=60 [facility] Comment on above: Performed By: #### C RP, BMP ####[facility] Rvrnowkigm5841 [place] [address]Dr. Anjali Reagan EGFR-NON AF MALIAN 48 mL/min/1.73m2 Critically low >=60 [facility] Comment on above: Performed By: #### C RP, BMP ####[facility] Ztrquvamsc[address] [place], [place] [address]Dr. Anjali Reagan Glucose [Mass/Vol] 191 mg/dL Critically high 74-106 [facility] Comment on above: Performed By: #### C RP, BMP ####[facility] Dkosgzzimp[address] [place], [place] [address]Dr. Anjali Reagan Potassium [Moles/Vol] 4.5 mmol/L Normal 3.4-5.0 [facility] Comment on above: Performed By: #### C RP, BMP ####[facility] Rrzovzpzoz[address] [place], [place] [address]Dr. Biancaramona Reagan Sodium [Moles/Vol] 136 mmol/L Critically low 137-145 [facility] Comment on above: Performed By: #### C RP, BMP ####[facility] Yuwaarxzxp7[address] [place], [place] [address]Dr. Anjali Reagan Urea nitrogen [Mass/Vol] 33.0 mg/dL Critically high 7.0-18 .0 [facility] Comment on above: Performed By: #### C RP, BMP ####[facility] Ackbqaxgcj8[address] [place], [place] [address]Dr. Anjali Reagan Urea nitrogen/Creatinine [Mass ratio] 22.1 mg/mg Normal [facility] Comment on above: Performed By: #### C RP, BMP ####[facility] Iciyqwjayc7533 [place] [id number]. Anjali Reagan SED RATE WESTERGRENon 2021 SED RATE 26 mm/hr Critically high <=20 [facility] Comment on above: Performed By: #### S EDR ####[facility] [facility] Qcl[address]byd[address] [place] [id number]. Anjali Reagan XR ANKLE RT MIN 3 VIEWSon XR ANKLE RT MIN 3 VIEWS Normal [facility] CT ANKLE RT WO CONon 022 CT ANKLE RT WO CON Normal [facility] CULTURE OTHERon 05-19-2021 CULTURE OTHER Normal [facility] Comment on above: Performed By: #### O THCX ####[facility] Djhzgueghe6[address] [place] [address]Dr. Anjali Reagan CULTURE ANAEROBICon 05-16-19 22 CULTURE ANAEROBIC Specimen Comments: RIGHT FOOT ABSCESS Culture Observations: NO GROWTH OF ANAEROBES AT 72 HOURS. Normal [facility] Comment on above: Performed By: #### A NACX ####[facility] Xhysswgazg[address] [place], [place] [address]Dr. Anjali Reagan GRAM STAINon 05-16-2021 DIPHTHEROIDS Normal [facility] Comment on above: Performed By: #### G STAIN ####[facility] Fymyrikccz0058 [place] [id number]. Anjali Reagan EPITHELIALS Normal [facility] Comment on above: Performed By: #### G STAIN ####[facility] Kijfzyelyh7172 [place] [phone]. Anjali Reagan FUNGAL ELEMENTS Normal [facility] Comment on above: Performed By: #### G STAIN ####[facility] Rvgjdichzz0410 [place] [phone]. Anjali Reagan GRAM NEG BACILLI MANY Normal [facility] Comment on above: Performed By: #### G STAIN ####[facility] Yfbavtaxmw2751 [place] [address]Dr. Anjali Reagan GRAM NEG DIPPLOCOCCI Normal [facility] Comment on above: Performed By: #### G STAIN ####[facility] Aztifocrpa8463 [place] [address]Dr. Anjali Reagan GRAM POS BACILLI Normal [facility] Comment on above: Performed By: #### G STAIN ####[facility] Dokqrgtatd7687 [place] [phone]. Anjali Reagan GRAM POSITIVE COCCI Normal [facility] Comment on above: Performed By: #### G STAIN ####[facility] Wvsldlytww[address] [place], [place] [address]Dr. Anjali Reagan GRAM STAIN SOURCE RIGHT FOOT Normal [facility] Comment on above: Performed By: #### G STAIN ####[facility] Xnqgtsavsw[address] [place] [address]Dr. Anjali Reagan GS_DIPTH Normal [facility] Comment on above: Performed By: #### G STAIN ####[facility] Fvxczppvcf[address] [place], [place] [address]Dr. Anjali Reagan WBC MANY Normal [facility] Comment on above: Performed By: #### G STAIN ####[facility] Gksqexjbrj[address] [place], [place] [address]Dr. Anjali Reagan XR ANKLE RT MIN 3 VIEWSon XR ANKLE RT MIN 3 VIEWS Normal [facility] COMPREHENSIVE METABOLIC PANE Ray 04-16-2021 Albumin [Mass/Vol] 4.6 g/dL Normal 3.6-5.1 [facility] Comment on above: Performed By: #### 7 600, 496, 52930 #### [facility] [address], [address] [place] [phone] Traffic Signal Technician: Juan Meraz MD Albumin/Globulin [Mass ratio] 1.7 {ratio} Normal 1.0-2.5 [facility] Comment on above: Performed By: #### 7 600, 496, 74918 #### [facility] [address] [facility], [address] [place] [phone] Traffic Signal Technician: Juan Meraz MD ALP [Catalytic activity/Vol] 119 U/L Normal 35-144 [facility] Comment on above: Performed By: #### 7 600, 496, 42743 #### [facility] [place] [address] Traffic Signal Technician: Juan Meraz MD ALT [Catalytic activity/Vol] 19 U/L Normal 9-46 [facility] Comment on above: Performed By: #### 7 600, 496, 74947 #### [facility] [place] [address] Traffic Signal Technician: Juan Meraz MD AST [Catalytic activity/Vol] 20 U/L Normal 10-35 [facility] Comment on above: Performed By: #### 7 600, 496, 34624 #### [facility] [place] [address] Traffic Signal Technician: Juan Meraz MD Bilirubin [Mass/Vol] 0.6 mg/dL Normal 0.2-1.2 [facility] Comment on above: Performed By: #### 7 600, 496, 09100 #### [facility] [place] [address] Traffic Signal Technician: Juan Meraz MD Calcium [Mass/Vol] 9.9 mg/dL Normal 8.6-10.3 [facility] Comment on above: Performed By: #### 7 600, 496, 39422 #### [facility] [place] [address] Traffic Signal Technician: Juan Meraz MD Chloride [Moles/Vol] 102 mmol/L Normal 98-110 [facility] Comment on above: Performed By: #### 7 600, 496, 16873 #### [facility] [place] [address] Traffic Signal Technician: Juan Meraz MD CO2 [Moles/Vol] 28 mmol/L Normal 20-32 [facility] Comment on above: Performed By: #### 7 600, 496, 97522 #### [facility] [place] [address] Traffic Signal Technician: Juan Meraz MD Creatinine [Mass/Vol] 1.59 mg/dL High 0.70-1.[address] [facility] Comment on above: Result Comment: For patients >49 years of age, the reference limit for Creatinine is approximately 13% higher for people identified as -Palestinian. Performed By: #### 7 600, 496, 25377 #### [facility] [place] [address] Traffic Signal Technician: Juan Meraz MD eGFR NON-AFR. MALIAN 46 mL/min/1.73m2 Low > OR = 60 [facility] Comment on above: Performed By: #### 7 600, 496, 98361 #### [facility] [place] [address] Traffic Signal Technician: Juan Meraz MD GFR/1.73 sq M.predicted among blacks MDRD (S/P/Bld) [Vol rate/Area] 53 mL/min/{1.73_m2} Low > OR = 60 [facility] Comment on above: Performed By: #### 7 600, 496, 89354 #### [facility] [place] [address] Traffic Signal Technician: Juan Meraz MD Globulin (S) [Mass/Vol] 2.7 g/dL Normal 1.9-3.7 [facility] Comment on above: Performed By: #### 7 600, 496, 77000 #### [facility] [place] [address] Traffic Signal Technician: Juan Meraz MD Glucose [Mass/Vol] 176 mg/dL High 65-139 [facility] Comment on above: Result Comment: Non-fasting reference interval For someone without known diabetes, a glucose value >125 mg/dL indicates that they may have diabetes and this should be confirmed with a follow-up test. Performed By: #### 7 600, 496, 24846 #### [facility] [address] [place] [address] Traffic Signal Technician: Juan Meraz MD Potassium [Moles/Vol] 4.2 mmol/L Normal 3.5-5.3 [facility] Comment on above: Performed By: #### 7 600, 496, 36243 #### [facility] [place] [address] Traffic Signal Technician: Juan Meraz MD Protein [Mass/Vol] 7.3 g/dL Normal 6.1-8.1 [facility] Comment on above: Performed By: #### 7 600, 496, 02214 #### [facility] [place] [address] Traffic Signal Technician: Juan Meraz MD Sodium [Moles/Vol] 138 mmol/L Normal 135-146 [facility] Comment on above: Performed By: #### 7 600, 496, 00666 #### [facility] [place] [address] Traffic Signal Technician: Juan Merza MD Urea nitrogen [Mass/Vol] 48 mg/dL High 7-25 [facility] Comment on above: Performed By: #### 7 600, 496, 33083 #### [facility] [place] [address] Traffic Signal Technician: Juan Meraz MD Urea nitrogen/Creatinine [Mass ratio] 30 mg/mg High 6-22 [facility] Comment on above: Performed By: #### 7 600, 496, 54440 #### [facility] [place] [address] Traffic Signal Technician: Juan Meraz MD HEMOGLOBIN A1con 04-16-2021 HEMOGLOBIN [...] 1 0165, 496, 905 #### [facility] [address], [address] [place] [address] Traffic Signal Technician: Juan Meraz MD LIPID PANEL, [facility] 04-02 Cholesterol [Mass/Vol] 108 mg/dL Normal <200 [facility] Comment on above: Order Comment: FASTI NG:NO FASTING: NO Performed By: #### 7 600, 496, 79180 #### [facility] [address], [address] [place] [address] Traffic Signal Technician: Juan Meraz MD Cholesterol in HDL [Mass/Vol] 47 mg/dL Normal > OR = 40 [facility] Comment on above: Order Comment: FASTI NG:NO FASTING: NO Performed By: #### 7 600, 496, 26716 #### [facility] [address], [address] [place] [address] Traffic Signal Technician: Juan Meraz MD Cholesterol in LDL [Mass/Vol] [...] LDL-C. [place] BAH et al. TABITHA. 2013;310(19): 2787-4830 (http://education.DSTLD.Simulmedia/faq/ECO900) Performed By: #### 7 600, 496, 96744 #### [facility] [address], [address] [place] [address] Traffic Signal Technician: Juan Meraz MD Cholesterol.total/Choles terol in HDL [Mass ratio] 2.3 {ratio} Normal <5.0 [facility] Comment on above: Order Comment: FASTI NG:NO FASTING: NO Performed By: #### 7 600, 496, 74718 #### [facility] [address], [address] [place] [address] Traffic Signal Technician: Juan Meraz MD NON HDL CHOLESTEROL 61 mg/dL (calc) Normal <130 [facility] Comment on above: Order Comment: FASTI NG:NO FASTING: NO Result Comment: For patients with diabetes plus 1 major ASCVD risk factor, treating to a non-HDL-C goal of <100 mg/dL (LDL-C of <70 mg/dL) is considered a therapeutic option. Performed By: #### 7 600, 496, 86652 #### [facility] [place] [address] Traffic Signal Technician: Juan Meraz MD Triglyceride [Mass/Vol] 102 mg/dL Normal <150 [facility] Comment on above: Order Comment: FASTI NG:NO FASTING: NO Performed By: #### 7 600, 496, 21891 #### [facility] [address], [address] [place] [address] Traffic Signal Technician: Juan Meraz MD CT ANKLE RT WO CONon 022 CT ANKLE RT WO CON Normal [facility] XR ANKLE RT MIN 3 VIEWSon XR ANKLE RT MIN 3 VIEWS Normal [facility] ACID FAST SMEAR AND CXon Acid Fast Culture Negative Normal [facility] Comment on above: Result Comment: No a rj fast bacilli isolated after 6 weeks. Performed By: #### A FB ####[facility] Iugqdetqnq8[address] [place], [place] [address]Jh. Anjali Reagan Acid Fast Smear Negative Normal [facility] Comment on above: Performed By: #### A FB ####[facility] Bsbmsgwmwn9045 [place], [place] [address]Fp. Anj[employer] Specimen Processing Direct Inoculation Normal [facility] Comment on above: Performed By: #### A FB ####[facility] Jobovghufj9144 [place] [phone]. Anjali Reagan ACID FAST SMEAR AND CXon Acid Fast Culture Negative Normal [facility] Comment on above: Result Comment: No a rj fast bacilli isolated after 6 weeks. Performed By: #### A FB ####[facility] Pqhccphvne5484 [place] [phone]. Anjali Reagan Acid Fast Smear Negative Normal [facility] Comment on above: Performed By: #### A FB ####[facility] Q[address]xt[address]yj[address] [place], [place] [address]Dr. Anjali [employer] Specimen Processing Tissue Grinding [facility] Comment on above: Performed By: #### A FB ####[facility] Frpqmbhcgj64[address] [place], [place] [address]Dr. Anjali Reagan [employer] Specimen Processing Direct Inoculation Normal [facility] Comment on above: Performed By: #### A FB ####[facility] Jqbmjjuufa[address] [place], [place] [address]Dr. Anjali Reagan FUNGAL CULTUREon 03-15-2021 Fungus (Mycology) Culture Final report Normal [facility] Comment on above: Performed By: #### C XFUN ####[facility] Peqldfysfx[address] [place], [place] [address]Dr. Anjali Reagan Fungus Stain Final report Normal [facility] Comment on above: Performed By: #### C XFUN ####[facility] Dfpsqpyfjc[address] [place], [place] [address]Dr. Anjali Reagan Result 1 Comment Normal [facility] Comment on above: Result Comment: MIRIAN/ Calcofluor preparation: no fungus observed. Performed By: #### C XFUN ####[facility] Nrbhoixxkr[address] [place], [place] [address]Dr. Anjali Reagan Result Comment: No y east or mold isolated after 4 weeks. FUNGAL CULTUREon 03-09-2021 Fungus (Mycology) Culture Final report Normal [facility] Comment on above: Performed By: #### C XFUN ####[facility] H[address]vqan[address] [place], [place] [address]Dr. Anjali Reagan Fungus Stain Final report Normal [facility] Comment on above: Performed By: #### C XFUN ####[facility] Oorqukhdch9[address] [place], [place] [address]Un. Anjali Reagan Result 1 Comment Normal [facility] Comment on above: Result Comment: MIRIAN/ Calcofluor preparation: no fungus observed. Performed By: #### C XFUN ####[facility] Gczwtnbfxa5861 [place], [place] [address]Po. Anjali Tez Result Comment: No y east or mold isolated after 4 weeks. XR ANKLE RT MIN 3 VIEWSon XR ANKLE RT MIN 3 VIEWS Normal T he [facility] Otolaryngology Office/Clinic Noteon 02-28-2021 Otolaryngology Office/Clinic [...] Dr. Freed. Previous pathology by physician in [place] about 1 year ago. PMHx of multiple [...] postauricular m (more content not included)... Normal [facility] CBC W MANUAL DIFFon 02-13-20 21 ATYPICAL LYMPH # Normal [facility] Comment on above: Performed By: #### C CORI ####[facility] Xbvirfypad6[address] [place] [address]Dr. Anjali Reagan ATYPICAL LYMPH % Normal [facility] Comment on above: Performed By: #### C CORI ####[facility] Puoimuclbk78[address] [place] [address]Dr. Biancalan Reagan BAND # 0.3 103/ul Normal 0.0-0.3 [facility] Comment on above: Performed By: #### C CORI ####[facility] Jeswiisvbk9[address] [place] [address]Dr. Biancalan Reagan BAND % 4 % Normal 0-5 [facility] Comment on above: Performed By: #### C CORI ####[facility] Swmtvqayqv1609 [place] [address]Dr. Biancalan Reagan BASOM # 0.00 103/ul Normal 0.00-0.10 [facility] Comment on above: Performed By: #### C BCFIONA ####[facility] Jhtoxtwufy75[address] [place] [address]Dr. Anjali Reagan BASOM % 0.0 % Critically low 0.2-2.0 [facility] Comment on above: Performed By: #### C CORI ####[facility] Kwlsdpgxqw0180 [place] [address]Dr. Anjali Reagan BLAST # Normal [facility] Comment on above: Performed By: #### C BCFIONA ####[facility] Jtssyzizwq0367 [place] [address]Dr. Anjali Reagan BLAST % Normal [facility] Comment on above: Performed By: #### C CORI ####[facility] Hyopmbxypf[address] [place], [place] [address]Dr. Anjali Reagan CORRECTED WBC Normal 4.0-11.0 [facility] Comment on above: Performed By: #### C CORI ####[facility] Ymkcduxsqt[address] [place], [place] [address]Dr. Anjali Reagan EOS # 0.28 103/ul Normal 0.00-0.70 [facility] Comment on above: Performed By: #### C CORI ####[facility] Xativfkkbe[address] [place], [place] [address]Dr. Anjali Reagan EOS% 4.0 % Normal 0.9-7.0 [facility] Comment on above: Performed By: #### C BCFIONA ####[facility] Csfrveuygv[address] [place], [place] [address]Dr. Anjali Reagan HCT 28.5 % Critically low 42.0-54.0 [facility] Comment on above: Performed By: #### C BCFIONA ####[facility] [address]yfryjhauh[address] [place], [place] [address]Dr. Anjali Reagan HGB 8.6 g/dl Critically low 14.0-18.0 [facility] Comment on above: Performed By: #### C CORI ####[facility] Ftharfgqmf[address] [place], [place] [address]Dr. Anjali Reagan HYPOCHROMASIA 3+ Normal [facility] Comment on above: Performed By: #### C CORI ####[facility] Qvnfotjyly7151 [place] [phone]. Anjali Reagan LYMPHM # 0.57 103/ul Critically low 1.20-3.[address] [facility] Comment on above: Performed By: #### C BCFIONA ####[facility] Dffagnpevz4877 [place] [phone]. Anjali Reagan LYMPHM% 8.0 % Critically low 20.5-60.0 [facility] Comment on above: Performed By: #### C CORI ####[facility] Tnfakxfsdt8827 [place] [address]Dr. Anjali Reagan MCH 25.4 pg Critically low 25.9-34.0 [facility] Comment on above: Performed By: #### C CORI ####[facility] Mlquuygogu1734 [place] [address]Dr. Anjali Reagan MCHC 30.2 g/dl Normal 29.9-35.2 [facility] Comment on above: Performed By: #### C CORI ####[facility] Pqfqdqhswj4161 [place] [address]Dr. Anjali Reagan MCV 84.1 fL Normal 80.0-94.0 [facility] Comment on above: Performed By: #### C CORI ####[facility] Rsjaljowyz3608 [place] [phone]. Anjali Reagan METAMYELOCYTE # Normal [facility] Comment on above: Performed By: #### C BCFIONA ####[facility] Mxpehwzmkn7369 [place] [phone]. Anjali Reagan METAMYELOCYTE % Normal [facility] Comment on above: Performed By: #### C CORI ####[facility] Rqidwmhfco4088 [place] [address]Dr. Anjali Reagan MICROCYTOSIS 2+ Normal [facility] Comment on above: Performed By: #### C CORI ####[facility] Qdqtnovuqo8403 [place] [address]Dr. Anjali Reagan MONOM# 0.14 103/ul Critically low 0.30-0.80 [facility] Comment on above: Performed By: #### C CORI ####[facility] Aitkqyklsu8380 [place] [address]Dr. Anjali Reagan MONOM% 2.0 % Normal 1.7-12.0 [facility] Comment on above: Performed By: #### C CORI ####[facility] Omzfuxclwk9804 [place] [address]Dr. Anjali Reagan MPV 9.3 fL Critically low 9.5-13.5 [facility] Comment on above: Performed By: #### C CORI ####[facility] Hyikznpsyg8820 [place] [address]Dr. Anjali Reagan MYELOCYTE # Normal [facility] Comment on above: Performed By: #### C CORI ####[facility] Zinptjbcyg0104 [place] [address]Dr. Anjali Reagan MYELOCYTE % Normal [facility] Comment on above: Performed By: #### C CORI ####[facility] Bfwxnhhzmk[address] [place] [address]Dr. Anjali Reagan NRBC 1 Normal [facility] Comment on above: Performed By: #### C CORI ####[facility] Ngvnrxxubh0464 [place] [phone]. Anjali Reagan PLT 186 103/ul Normal 150-450 [facility] Comment on above: Performed By: #### C CORI ####[facility] Keysfmfawu2654 [place] [phone]. Anjali Reagan RBC 3.39 106/ul Critically low 4.70-6.10 [facility] Comment on above: Performed By: #### C CORI ####[facility] Urjdqrzgnz2163 [place] [address]Dr. Anjali Reagan RDW 18.8 % Critically high 11.0-15.0 [facility] Comment on above: Performed By: #### C CORI ####[facility] Debbfsbclt1687 [place] [address]Dr. Anjali Reagan SEG # 5.82 103/ul Normal 1.40-6.50 [facility] Comment on above: Performed By: #### C CORI ####[facility] Nlbercazdh8805 [place] [address]Dr. Anjali Reagan SEG % 82.0 % Critically high 43.0-75.[address] [facility] Comment on above: Performed By: #### C BCFIONA ####[facility] Crudtgaayn1890 [place] [address]Dr. Anjali Tez WBC 7.1 103/ul Normal 4.0-11.0 [facility] Comment on above: Performed By: #### C CORI ####[facility] Spqotemnmn2510 [place] [address]Dr. Anjali Reagan POINT OF CARE GLUCOSEon 01-31 Glucose [Mass/Vol] 175 mg/dL Critically high 74-106 [facility] Comment on above: Performed By: #### P OCGLUC ####[facility] Ousvwgxakr74[address] [place] [address]Dr. Anjali Reagan PROF 14(COMP METB)on 021 Albumin [Mass/Vol] 2.4 g/dL Critically low 3.5-5.0 [facility] Comment on above: Performed By: #### C MP ####[facility] Xydkbunmpw5101 [place] [address]Dr. Anjali Reagan Albumin/Globulin [Mass ratio] 0.6 {ratio} Normal [facility] Comment on above: Performed By: #### C MP ####[facility] Ymtlbgkrsk2690 [place] [address]Dr. Anjali Reagan ALP [Catalytic activity/Vol] 93 U/L Normal 38-126 [facility] Comment on above: Performed By: #### C MP ####[facility] Nxnkzurxsz4317 [place] [address]Dr. Anjali Reagan ALT [Catalytic activity/Vol] 18 U/L Critically low 21-72 [facility] Comment on above: Performed By: #### C MP ####[facility] Qpbjslvslf5723 [place] [phone]. Anjali Reagan Anion gap [Moles/Vol] 12.5 mmol/L Normal [facility] Comment on above: Performed By: #### C MP ####[facility] Viaffxclts1435 [place] [address]Dr. Anjali Reagan AST [Catalytic activity/Vol] 30 U/L Normal 17-59 [facility] Comment on above: Performed By: #### C MP ####[facility] Twnlpqcgvi5950 [place] [address]Dr. Anjali Reagan Bilirubin [Mass/Vol] 0.5 mg/dL Normal 0.2-1.3 [facility] Comment on above: Performed By: #### C MP ####[facility] Skyokdukzl[address] [place], [place] [address]Dr. Biancaramona Reagan Calcium [Mass/Vol] 8.5 mg/dL Normal 8.4-10.2 [facility] Comment on above: Performed By: #### C MP ####[facility] Zkmqlsmjaz0324 [place] [address]Dr. Anjali Tez Chloride [Moles/Vol] 103 mmol/L Normal 98-107 [facility] Comment on above: Performed By: #### C MP ####[facility] Zrucjnkpgi3788 [place] [address]Dr. Biancaramona Reagan CO2 [Moles/Vol] 25.8 mmol/L Normal 22.0-30.0 [facility] Comment on above: Performed By: #### C MP ####[facility] Qxlxcuvnni6825 [place] [phone]. Anjali Reagan Creatinine [Mass/Vol] 1.09 mg/dL Normal 0.66-1.25 [facility] Comment on above: Performed By: #### C MP ####[facility] Wckogmqrvc1778 [place] [address]Dr. Anjali Tez EGFR-AF MALIAN >60 Normal >=60 [facility] Comment on above: Performed By: #### C MP ####[facility] Phyodkqafl5756 [place] [phone]. Anjali Reagan EGFR-NON AF MALIAN >60 Normal >=60 [facility] Comment on above: Performed By: #### C MP ####[facility] Ibuosshahy9602 [place] [address]Dr. Anjali Reagan Globulin (S) [Mass/Vol] 3.7 g/dL Normal [facility] Comment on above: Performed By: #### C MP ####[facility] Ytdxkbohai7198 [place] [address]Dr. Anjali Reagan Glucose [Mass/Vol] 165 mg/dL Critically high 74-106 [facility] Comment on above: Performed By: #### C MP ####[facility] Wtzsdxfwqw8986 [place] [address]Dr. Anjali Reagan Potassium [Moles/Vol] 4.3 mmol/L Normal 3.4-5.0 [facility] Comment on above: Performed By: #### C MP ####[facility] Jpxuxetuzh[address] [place], [place] [address]Dr. Anjali Reagan Protein [Mass/Vol] 6.1 g/dL Normal 6.1-8.2 [facility] Comment on above: Performed By: #### C MP ####[facility] Dwvbpydjuk[address] [place], [place] [address]Dr. Anjali Reagan Sodium [Moles/Vol] 137 mmol/L Normal 137-145 [facility] Comment on above: Performed By: #### C MP ####[facility] Kyskkqkelk[address] [place], [place] [address]Dr. Anjali Reagan Urea nitrogen [Mass/Vol] 24.0 mg/dL Critically high 9.0-20 .0 [facility] Comment on above: Performed By: #### C MP ####[facility] Cqtmpdgoak[address] [place], [place] [address]Dr. Anjali Reagan Urea nitrogen/Creatinine [Mass ratio] 22.0 mg/mg Normal [facility] [facility] Comment on above: Performed By: #### C MP ####[facility] Scwamsuidz[address] [place], [place] [address]Dr. Anjali Reagan ALBUMINon 02-11-2021 Albumin [Mass/Vol] 2.8 g/dL Critically low 3.5-5.0 [facility] Comment on above: Performed By: #### P REALB, ALB ####[facility] Bzxvlamcob[address] [place] [address]Dr. Anjali Reagan CBC AUTO DIFFon 02-11-2021 BASO # 0.0 103/ul Normal 0.0-0.1 [facility] Comment on above: Performed By: #### C BC ####[facility] Kzjsmbrmow[address] [place], [place] [address]Dr. Anjali Tez Basophils/100 WBC (Bld) 0.5 % Normal 0.2-2.0 [facility] Comment on above: Performed By: #### C BC ####[facility] Kdwbysoais[address] [place], [place] [address]Dr. Anjali Tez EO # 0.5 103/ul Normal 0.0-0.7 [facility] Comment on above: Performed By: #### C BC ####[facility] Mdydkeauni[address] [place], [place] [address]Dr. Anjali Tez Eosinophils/100 WBC (Bld) 7.4 % Critically high 0.9-7.0 [facility] Comment on above: Performed By: #### C BC ####[facility] Aoncszdhlf16[address] [place], [place] [address]Dr. Biancaramona Reagan Erythrocyte distribution width (RBC) [Ratio] 18.7 % Critically high 11.0-15.0 [facility] Comment on above: Performed By: #### C BC ####[facility] Rndljdlbtj7[address] [place], [place] [address]Dr. Anjali Reagan Hematocrit (Bld) [Volume fraction] 30.7 % Critically low 42.0-54.0 [facility] Comment on above: Performed By: #### C BC ####[facility] Fbddmbowfv[address] [place], [place] [address]Dr. Anjali Tez Hemoglobin (Bld) [Mass/Vol] 9.5 g/dL Critically low 14.0-18.0 [facility] Comment on above: Performed By: #### C BC ####[facility] Fgjfnvviux[address] [place] [address]DrVeronica Reagan IG # 0.05 10e3/ul Critically high 0.00-0.03 [facility] Comment on above: Performed By: #### C BC ####[facility] Pvmfxhceqo01[address] [place] [id number] Reagan IG % 0.8 % Critically high 0.0-0.[address] [facility] Comment on above: Performed By: #### C BC ####[facility] Rcgrgxuwgc3635 [place] [address]DrVeronica Reagan LYMPH # 0.6 103/ul Critically low 1.2-3.8 [facility] Comment on above: Performed By: #### C BC ####[facility] Jwtogvqumw9134 [place] [address]DrVeronica Reagan Lymphocytes/100 WBC (Bld) 8.5 % Critically low 20.5-60.0 [facility] Comment on above: Performed By: #### C BC ####[facility] Lmgducvqcy6[address] [place] [address]DrVeronica Reagan MANUAL DIFF REQ NO Normal [facility] Comment on above: Performed By: #### C BC ####[facility] Pbipbwdfst6188 [place] [address]DrVeronica Reagan MCH (RBC) [Entitic mass] 25.3 pg Critically low 25.9-34 .0 [facility] Comment on above: Performed By: #### C BC ####[facility] Cfukfahprd7164 [place] [address]DrVeronica Reagan MCHC (RBC) [Mass/Vol] 30.9 g/dL Normal 29.9-35.2 [facility] Comment on above: Performed By: #### C BC ####[facility] Mwirhitdau9304 [place] [address]DrVeronica Reagan MCV (RBC) [Entitic vol] 81.6 fL Normal 80.0-94.0 [facility] Comment on above: Performed By: #### C BC ####[facility] Whhpvvehnb18[address] [place] [phone]. Anjali Reagan MONO # 0.8 103/ul Normal 0.3-0.8 [facility] Comment on above: Performed By: #### C BC ####[facility] Yelhfjgwgx9[address] [place] [phone]. Anjali Reagan Monocytes/100 WBC (Bld) 12.2 % Critically high 1.7-12. 0 [facility] Comment on above: Performed By: #### C BC ####[facility] Cceadxsafe40[address] [place] [id number]. Anjali Reagan NEUT # 4.6 103/ul Normal 1.4-6.5 [facility] Comment on above: Performed By: #### C BC ####[facility] Gepnkyviry5[address] [place] [address]Dr. Anjali Reagan Neutrophils/100 WBC (Bld) 70.6 % Normal 43.0-75.0 [facility] Comment on above: Performed By: #### C BC ####[facility] Tiatzrqgxr7115 [place] [id number]. Anjali Reagan Platelet mean volume (Bld) [Entitic vol] 9.6 fL Normal 9.5-13.5 [facility] Comment on above: Performed By: #### C BC ####[facility] Xmohlrvbqu9143 [place] [id number]. Anjali Reagan PLT 205 103/ul Normal 150-450 [facility] Comment on above: Performed By: #### C BC ####[facility] Whpajntsis4650 [place] [phone]. Anjali Reagan RBC 3.76 106/ul Critically low 4.70-6.10 [facility] Comment on above: Performed By: #### C BC ####[facility] Eelawvfuwo3348 [place] [phone]. Anjali Reagan WBC 6.5 103/ul Normal 4.0-11.0 [facility] Comment on above: Performed By: #### C BC ####[facility] Npjmtwbcii4356 [place] [phone]. Anjali Reagan CULTURE ANAEROBICon 02-12-20 21 CULTURE ANAEROBIC Specimen Comments: RIGHT ANKLE JOINT Culture Observations: NO GROWTH AT 72 HRS Normal [facility] Comment on above: Performed By: #### A NACX ####[facility] Jvnnfqcevw[address] [place], [place] [address]Dr. Anjali Reagan CULTURE OTHERon 02-11-2021 CULTURE OTHER Specimen Comments: RIGHT ANKLE JOINT Culture Observations: NO GROWTH AT 72 HRS Normal [facility] Comment on above: Performed By: #### O THCX ####[facility] Mgnfwnubjs15[address] [place], [place] [address]Dr. Anjali Reagan GRAM STAINon 02-11-2021 COMMENTS NO ORGANISMS OBSERVED Normal [facility] Comment on above: Performed By: #### G STAIN ####[facility] Acdzldpyah01[address] [place], [place] [address]Dr. Anjali Reagan DIPHTHEROIDS Normal [facility] Comment on above: Performed By: #### G STAIN ####[facility] Xjjirsszgn[address] [place], [place] [address]Dr. Anjali Reagan EPITHELIALS Normal [facility] Comment on above: Performed By: #### G STAIN ####[facility] Gwpzvvtqce29[address] [place], [place] [address]Dr. Anjali Reagan FUNGAL ELEMENTS Normal [facility] Comment on above: Performed By: #### G STAIN ####[facility] Alendaurgf0219[address] [place], [place] [address]Dr. Anjali eRagan GRAM NEG BACILLI Normal [facility] Comment on above: Performed By: #### G STAIN ####[facility] Jjeiromkcv04[address] [place], [place] [address]Dr. Anjali Reagan GRAM NEG DIPPLOCOCCI Normal [facility] Comment on above: Performed By: #### G STAIN ####[facility] Hdddnekqvd6[address] [place], [place] [address]Dr. Anjali Reagan GRAM POS BACILLI Normal [facility] Comment on above: Performed By: #### G STAIN ####[facility] Mdudaymktj4775 [place] [address]Dr. Anjali Reagan GRAM POSITIVE COCCI Normal [facility] Comment on above: Performed By: #### G STAIN ####[facility] Atghuzpanh05[address] [place] [address]Dr. Anjali Reagan GRAM STAIN SOURCE Right ankle joint Normal [facility] Comment on above: Performed By: #### G STAIN ####[facility] Mcowkuvwcg2[address] [place], [place] [address]Dr. Anjali Reagan GS_DIPTH Normal [facility] Comment on above: Performed By: #### G STAIN ####[facility] Eyrppcfjva[address] [place], [place] [address]Dr. Anjali Reagan WBC FEW Normal [facility] Comment on above: Performed By: #### G STAIN ####[facility] Dvmwnpbqsr8[address] [place], [place] [address]Dr. Anjali Reagan POINT OF CARE GLUCOSEon 01-31 Glucose [Mass/Vol] 196 mg/dL Critically high 74-106 [facility] Comment on above: Performed By: #### P OCGLUC ####[facility] Leavvbfoer[address] [place], [place] [address]Dr. Anjali Reagan Glucose [Mass/Vol] 176 mg/dL Critically high 74-106 [facility] Comment on above: Performed By: #### P OCGLUC ####[facility] Qgzbltedkc3169[address] [place], [place] [address]Dr. Anjali Reagan PREALBUMINon 02-11-2021 Prealbumin [Mass/Vol] 17.8 mg/dL Normal 17.6-36.0 [facility] Comment on above: Performed By: #### P REALB, ALB ####[facility] Icxzchhxmx10[address] [place], [place] [address]Dr. Anjali Reagan PROF 14(COMP METB)on 021 Albumin [Mass/Vol] 2.6 g/dL Critically low 3.5-5.0 [facility] Comment on above: Performed By: #### B MP, CMP ####[facility] Nkpghfyfeq7194 [place] [address]Dr. Anjali Reagan Albumin/Globulin [Mass ratio] 0.6 {ratio} Normal [facility] Comment on above: Performed By: #### B MP, CMP ####[facility] Muypjupjuv[address] [place], [place] [address]Dr. Anjali Reagan ALP [Catalytic activity/Vol] 104 U/L Normal 38-126 [facility] Comment on above: Performed By: #### B MP, CMP ####[facility] Ikwpdkwjpp47232[address] [place], [place] [address]Dr. Anjali Reagan ALT [Catalytic activity/Vol] 17 U/L Critically low 21-72 [facility] Comment on above: Performed By: #### B MP, CMP ####[facility] Xkkqeetmfo65[address] [place], [place] [address]Dr. Anjali Reagan AST [Catalytic activity/Vol] 26 U/L Normal 17-59 [facility] Comment on above: Performed By: #### B MP, CMP ####[facility] Cphkkxxnvo326[address] [place], [place] [address]Dr. Anjali Reagan Bilirubin [Mass/Vol] 0.5 mg/dL Normal 0.2-1.3 [facility] Comment on above: Performed By: #### B MP, CMP ####[facility] Ndlkxtmxxe[address] [place], [place] [address]Dr. Anjali Reagan Globulin (S) [Mass/Vol] 4.1 g/dL Normal [facility] Comment on above: Performed By: #### B MP, CMP ####[facility] Yvttlocmnq[address] [place], [place] [address]Dr. Anjali Reagan Protein [Mass/Vol] 6.7 g/dL Normal 6.1-8.2 [facility] Comment on above: Performed By: #### B MP, CMP ####[facility] Nnyuijlpdg64[address] [place], [place] [address]Dr. Anjali Reagan PROF CHEM 8 (BAS METB)on Anion gap [Moles/Vol] 11.3 mmol/L Normal [facility] Comment on above: Performed By: #### B MP, CMP ####[facility] Nvshfbracx6[address] [place] [phone]. Anjali Reagan Calcium [Mass/Vol] 9.0 mg/dL Normal 8.4-10.2 [facility] Comment on above: Performed By: #### B MP, CMP ####[facility] Epfzrhwmdw4449 [place] [phone]. Anjali Reagan Chloride [Moles/Vol] 101 mmol/L Normal 98-107 [facility] Comment on above: Performed By: #### B MP, CMP ####[facility] Fcdjesbepn4400 [place] [phone]. Anjali Reagan CO2 [Moles/Vol] 28.0 mmol/L Normal 22.0-30.0 [facility] Comment on above: Performed By: #### B MP, CMP ####[facility] Snkfphsuqv06[address] [place], [place] [address]Dr. Anjali Reagan Creatinine [Mass/Vol] 1.23 mg/dL Normal 0.66-1.25 [facility] Comment on above: Performed By: #### B MP, CMP ####[facility] Joiizlsrud[address] [place] [address]Dr. Anjali Reagan EGFR-AF MALIAN >60 Normal >=60 [facility] Comment on above: Performed By: #### B MP, CMP ####[facility] Jeppvhgibg3166 [place] [address]Dr. Anjali Tez EGFR-NON AF MALIAN 59 mL/min/1.73m2 Critically low >=60 [facility] Comment on above: Performed By: #### B MP, CMP ####[facility] Tkeykknslt1533 [place] [id number]. Anjali Reagan Glucose [Mass/Vol] 109 mg/dL Critically high 74-106 [facility] Comment on above: Performed By: #### B MP, CMP ####[facility] Kfrkzqveuk68[address] [place] [address]Dr. Anjali Reagan Potassium [Moles/Vol] 3.9 mmol/L Normal 3.4-5.0 [facility] Comment on above: Performed By: #### B MP, CMP ####[facility] Svfkzrumae3736 [place] [address]Dr. Anjali Reagan Sodium [Moles/Vol] 136 mmol/L Critically low 137-145 [facility] Comment on above: Performed By: #### B MP, CMP ####[facility] Bufzpstuxz6725 [place] [address]Dr. Anjali Reagan Urea nitrogen [Mass/Vol] 32.0 mg/dL Critically high 9.0-20 .0 [facility] Comment on above: Performed By: #### B MP, CMP ####[facility] Oflefuccoy030[address] [place], [place] [address]Dr. Anjali Reagan Urea nitrogen/Creatinine [Mass ratio] 26.0 mg/mg Normal [facility] Comment on above: Performed By: #### B MP, CMP ####[facility] Ymdfhvelll[address] [place], [place] [address]Dr. Anjali Reagan VANCOMYCIN TROUGHon 02-12-20 21 VANCOMYCIN TROUGH 9.8 ug/ml Normal 5.0-20.0 [facility] Comment on above: Performed By: #### V ANCT ####[facility] Mlkrjnqegh24[address] [place], [place] [address]Dr. Anjali Reagan XR ANKLE RT 2Von 02-11-2021 XR ANKLE RT 2V Normal [facility] XR FOOT RT MIN 3 VIEWSon XR FOOT RT MIN 3 VIEWS Normal [facility] CBC AUTO DIFFon 02-10-2021 BASO # 0.0 103/ul Normal 0.0-0.1 [facility] Comment on above: Performed By: #### C BC ####[facility] Kbpaetqonk86[address] [place], [place] [address]Dr. Anjali Reagan Basophils/100 WBC (Bld) 0.3 % Normal 0.2-2.0 [facility] Comment on above: Performed By: #### C BC ####[facility] Urlufamacs5727[address] [place], [place] [address]Dr. Anjali Reagan EO # 0.2 103/ul Normal 0.0-0.7 [facility] Comment on above: Performed By: #### C BC ####[facility] Bncpvsazwm4726 [place] [address]Dr. Anjali Reagan Eosinophils/100 WBC (Bld) 2.7 % Normal 0.9-7.0 [facility] Comment on above: Performed By: #### C BC ####[facility] Ylxigvikcy66[address] [place], [place] [address]Dr. Anjali Reagan Erythrocyte distribution width (RBC) [Ratio] 18.8 % Critically high 11.0-15.0 [facility] Comment on above: Performed By: #### C BC ####[facility] Wftdokvkft17[address] [place], [place] [address]Dr. Biancaramona Reagan Hematocrit (Bld) [Volume fraction] 31.6 % Critically low 42.0-54.0 [facility] Comment on above: Performed By: #### C BC ####[facility] Swjxhhhgxu9326[address] [place], [place] [address]Dr. Anjali Reagan Hemoglobin (Bld) [Mass/Vol] 9.6 g/dL Critically low 14.0-18.0 [facility] Comment on above: Performed By: #### C BC ####[facility] Wqhabifvjl3439[address] [place], [place] [address]Dr. Biancaramona Tez IG # 0.04 10e3/ul Critically high 0.00-0.03 [facility] Comment on above: Performed By: #### C BC ####[facility] Byhrbvbris6[address] [place], [place] [address]Dr. Biancaramona Tez IG % 0.6 % Critically high 0.0-0.5 [facility] Comment on above: Performed By: #### C BC ####[facility] Khkrhrkexi4266[address] [place], [place] [address]Dr. Anjali Reagan LYMPH # 0.9 103/ul Critically low 1.2-3.8 [facility] Comment on above: Performed By: #### C BC ####[facility] Fykdhpkrta8[address] [place], [place] [address]DrVeronica Reagan Lymphocytes/100 WBC (Bld) 12.2 % Critically low 20.5-60.0 [facility] Comment on above: Performed By: #### C BC ####[facility] Awzizhavsh3[address] [place] [address]DrVeronica Reagan MANUAL DIFF REQ NO Normal [facility] Comment on above: Performed By: #### C BC ####[facility] Sdphzsjwbo7414 [place] [address]DrVeronica Reagan MCH (RBC) [Entitic mass] 24.7 pg Critically low 25.9-34 .0 [facility] Comment on above: Performed By: #### C BC ####[facility] Renwszxpfc9259[address] [place], [place] [address]DrVeronica Reagan MCHC (RBC) [Mass/Vol] 30.4 g/dL Normal 29.9-35.2 [facility] Comment on above: Performed By: #### C BC ####[facility] Wbjsscnsrt067[address] [place], [place] [address]DrVeronica Reagan MCV (RBC) [Entitic vol] 81.4 fL Normal 80.0-94.0 [facility] Comment on above: Performed By: #### C BC ####[facility] Lairwubcef8[address] [place], [place] [address]DrVeronica Reagan MONO # 0.7 103/ul Normal 0.3-0.8 [facility] Comment on above: Performed By: #### C BC ####[facility] Taeyffzdgs64[address] [place], [place] [address]DrVeronica Reagan Monocytes/100 WBC (Bld) 9.9 % Normal 1.7-12.0 [facility] Comment on above: Performed By: #### C BC ####[facility] Hzegixnblv3424[address] [place], [place] [address]DrVeronica Reagan NEUT # 5.3 103/ul Normal 1.4-6.5 [facility] Comment on above: Performed By: #### C BC ####[facility] Moecjmxuaa4825[address] [place], [place] [address]DrVeronica Reagan Neutrophils/100 WBC (Bld) 74.3 % Normal 43.0-75.0 [facility] Comment on above: Performed By: #### C BC ####[facility] Isphzeejcf9517 [place] [address]Dr. Anjali Reagan Platelet mean volume (Bld) [Entitic vol] 9.6 fL Normal 9.5-13.5 [facility] Comment on above: Performed By: #### C BC ####[facility] Mnjzgcsntk0423 [place] [address]Dr. Anjali Reagan PLT 218 103/ul Normal 150-450 [facility] Comment on above: Performed By: #### C BC ####[facility] Kopnfpbepc4252 [place] [address]Dr. Anjali Reagan RBC 3.88 106/ul Critically low 4.70-6.[address] [facility] Comment on above: Performed By: #### C BC ####[facility] Iqvjpuilqg9916 [place] [address]Dr. Anjali Reagan WBC 7.1 103/ul Normal 4.0-11.0 [facility] Comment on above: Performed By: #### C BC ####[facility] Bwglfcnabe[address] [place], [place] [address]DrVeronica Reagan POINT OF CARE GLUCOSEon 11 Glucose [Mass/Vol] 219 mg/dL Critically high 74-106 [facility] Comment on above: Performed By: #### P OCGLUC ####[facility] Bdhejbcjut1419 [place] [address]DrVeronica Reagan Glucose [Mass/Vol] 136 mg/dL Critically high 74-106 [facility] Comment on above: Performed By: #### P OCGLUC ####[facility] Rdoqdnddmf68[address] [place], [place] [address]DrVeronica Reagan Glucose [Mass/Vol] 119 mg/dL Critically high 74-106 [facility] Comment on above: Performed By: #### P OCGLUC ####[facility] Wedpainoym[address] [place], [place] [address]DrVeronica Reagan PROF 14(COMP METB)on 021 Albumin [Mass/Vol] 2.8 g/dL Critically low 3.5-5.0 [facility] Comment on above: Performed By: #### C ALEA, BMP ####[facility] Nduboodjvs2525 [place], [place] [address]Sg. Anjali Reagan Albumin/Globulin [Mass ratio] 0.7 {ratio} Normal [facility] Comment on above: Performed By: #### C ALEA, BMP ####[facility] Dmblsogodk4614 [place] [id number]. Biancaramona Reagan ALP [Catalytic activity/Vol] 109 U/L Normal 38-126 [facility] Comment on above: Performed By: #### C ALEA, BMP ####[facility] Mtyzpralic5115 [place] [id number]. Anjali Reagan ALT [Catalytic activity/Vol] 23 U/L Normal 21-72 [facility] Comment on above: Performed By: #### C ALEA, BMP ####[facility] Eymtavusgx6567 [place] [id number]. Anjali Tez AST [Catalytic activity/Vol] 24 U/L Normal 17-59 [facility] Comment on above: Performed By: #### C ALEA, BMP ####[facility] Kdftimgqye6618 [place] [id number]. Anjali Reagan Bilirubin [Mass/Vol] 0.4 mg/dL Normal 0.2-1.3 [facility] Comment on above: Performed By: #### C ALEA, BMP ####[facility] Rstjewiysn3187 [place] [id number]. Anjali Reagan Globulin (S) [Mass/Vol] 4.1 g/dL Normal [facility] Comment on above: Performed By: #### C ALEA, BMP ####[facility] Jrgnjcbghp9886 [place] [id number]. Anjali Reagan Protein [Mass/Vol] 6.9 g/dL Normal 6.1-8.2 [facility] Comment on above: Performed By: #### Uzair COSBY, BMP ####[facility] Tqlkcskiit5318 [place] [address]Dr. Anjali Reagan PROF CHEM 8 (BAS METB)on Anion gap [Moles/Vol] 13.0 mmol/L Normal [facility] Comment on above: Performed By: #### C MP, BMP ####[facility] Frpfhnunyd7790 [place] [address]Dr. Anjali Reagan Calcium [Mass/Vol] 9.4 mg/dL Normal 8.4-10.2 [facility] Comment on above: Performed By: #### C MP, BMP ####[facility] Cxzhbrydog9259[address] [place], [place] [address]Dr. Anjali Reagan Chloride [Moles/Vol] 104 mmol/L Normal 98-107 [facility] Comment on above: Performed By: #### C MP, BMP ####[facility] Xwiajjjwbx6666[address] [place], [place] [address]Dr. Anjali Reagan CO2 [Moles/Vol] 27.7 mmol/L Normal 22.0-30.0 [facility] Comment on above: Performed By: #### C MP, BMP ####[facility] Wdngfbvsbq5[address] [place], [place] [address]Dr. Anjali Reagan Creatinine [Mass/Vol] 1.19 mg/dL Normal 0.66-1.25 [facility] Comment on above: Performed By: #### C MP, BMP ####[facility] Eeqniklrhe0727[address] [place], [place] [address]Dr. Anjali Reagan EGFR-AF MALIAN >60 Normal >=60 [facility] Comment on above: Performed By: #### C MP, BMP ####[facility] Tbgxiuinbh52[address] [place], [place] [address]Dr. Anjali Reagan EGFR-NON AF MALIAN >60 Normal >=60 [facility] Comment on above: Performed By: #### C MP, BMP ####[facility] Hnegqbsdip2[address] [place], [place] [address]Dr. Anjali Reagan Glucose [Mass/Vol] 81 mg/dL Normal 74-106 [facility] Comment on above: Performed By: #### C MP, BMP ####[facility] Fuapwszoco6804 [place] [address]Dr. Anjali Reagan Potassium [Moles/Vol] 4.1 mmol/L Normal 3.4-5.0 [facility] Comment on above: Performed By: #### C MP, BMP ####[facility] Verrjypfnt8746 [place] [address]Dr. Anjali Reagan Sodium [Moles/Vol] 141 mmol/L Normal 137-145 [facility] Comment on above: Performed By: #### C MP, BMP ####[facility] Uxhvnzudwc[address] [place], [place] [address]Dr. Anjali Reagan Urea nitrogen [Mass/Vol] 41.0 mg/dL Critically high 9.0-20 .0 [facility] Comment on above: Performed By: #### C ALEA, BMP ####[facility] Enjdkuonsw[address] [place], [place] [address]Dr. Anjali Reagan Urea nitrogen/Creatinine [Mass ratio] 34.4 mg/mg Normal [facility] Comment on above: Performed By: #### C ALEA, BMP ####[facility] Ffloxfxkgh[address] [place], [place] [address]Dr. Anjali Reagan CBC W MANUAL DIFFon 02-10-20 21 ANISOCYTOSIS SLIGHT Normal [facility] Comment on above: Performed By: #### C SAUMYAMAN ####[facility] Mzgdsehpxn[address] [place], [place] [address]Dr. Anjali Reagan ATYPICAL LYMPH # Normal [facility] Comment on above: Performed By: #### C CORI ####[facility] Lerhahccwp[address] [place] [address]Dr. Anjali Reagan ATYPICAL LYMPH % Normal [facility] Comment on above: Performed By: #### C BCMAN ####[facility] Xcrkejbgnw64[address] [place], [place] [address]Dr. Anjali Reagan BAND # Normal 0.0-0.3 [facility] Comment on above: Performed By: #### C CORI ####[facility] Gurolccocy[address] [place], [place] [address]Dr. Anjali Reagan BAND % Normal 0-5 [facility] Comment on above: Performed By: #### C BCFIONA ####[facility] Mbdoxpeujf3134 [place] [address]Dr. Anjali Reagan BASOM # 0.00 103/ul Normal 0.00-0.10 [facility] Comment on above: Performed By: #### C BCFIONA ####[facility] Oifwgdgeda5102 [place] [address]Dr. Anjali Reagan BASOM % 0.0 % Critically low 0.2-2.0 [facility] Comment on above: Performed By: #### C BCFIONA ####[facility] Jthegmfbku9771 [place] [address]Dr. Anjali Reagan BLAST # Normal [facility] Comment on above: Performed By: #### C CORI ####[facility] Grxuypkrja[address] [place], [place] [address]Dr. Anjali Reagan BLAST % Normal [facility] Comment on above: Performed By: #### C BCFIONA ####[facility] Zfpkpdsmmk4891 [place] [address]Dr. Anjali Reagan CORRECTED WBC Normal 4.0-11.0 [facility] Comment on above: Performed By: #### C BCFIONA ####[facility] Mbgfkkhiub0050 [place] [address]Dr. Anjali Reagan EOS # 0.00 103/ul Normal 0.00-0.70 [facility] Comment on above: Performed By: #### C BCFIONA ####[facility] Ryhaauhcwl4530 [place] [address]Dr. Anjali Reagan EOS% 0.0 % Critically low 0.9-7.0 [facility] Comment on above: Performed By: #### C CORI ####[facility] Vrnihqajox[address] [place], [place] [address]Dr. Anjali Reagan HCT 31.1 % Critically low 42.0-54.0 [facility] Comment on above: Performed By: #### C BCFIONA ####[facility] Ivaujxqsjk5[address] [place], [place] [address]Df. Anjali Reagan HGB 9.6 g/dl Critically low 14.0-18.0 [facility] Comment on above: Performed By: #### Uzair PERSAUD ####[facility] Maehmnjlqj4934 [place], [place] [address]Gz. Anjali Reagan LYMPHM # 0.73 103/ul Critically low 1.20-3.80 [facility] Comment on above: Performed By: #### Uzair PERSAUD ####[facility] Xqjvbmozqq5008 [place] [id number]. Anjali Reagan LYMPHM% 7.0 % Critically low 20.5-60.0 [facility] Comment on above: Performed By: #### Uzair PERSAUD ####[facility] Uedimvnuvj4619 [place] [phone]. Anjali Reagan MCH 25.1 pg Critically low 25.9-34.0 [facility] Comment on above: Performed By: #### Uzair PERSAUD ####[facility] Yxzfjwfzfk1721 [place] [phone]. Anjali Reagan MCHC 30.9 g/dl Normal 29.9-35.2 [facility] Comment on above: Performed By: #### Uzair PERSAUD ####[facility] Uzbazhrujd3552 [place] [phone]. Anjali Reagan MCV 81.4 fL Normal 80.0-94.0 [facility] Comment on above: Performed By: #### Uzair PERSAUD ####[facility] Jrxqrwmfah8739 [place] [id number]. Anjali Reagan METAMYELOCYTE # Normal [facility] Comment on above: Performed By: #### Uzair PERSAUD ####[facility] Dpjsgtawhk8961 [place] [phone]. Anjali Reagan METAMYELOCYTE % Normal [facility] Comment on above: Performed By: #### Uzair PERSAUD ####[facility] Psnyijmxaj6468 [place] [phone]. Anjali Reagan MONOM# 0.31 103/ul Normal 0.30-0.80 [facility] Comment on above: Performed By: #### C CORI ####[facility] Grgmvkbbby5465 [place] [phone]. Anjali Reagan MONOM% 3.0 % Normal 1.7-12.0 [facility] Comment on above: Performed By: #### C CORI ####[facility] Mbwfltmxlr7416 [place] [phone]. Anjali Reagan MPV 9.9 fL Normal 9.5-13.5 [facility] Comment on above: Performed By: #### C CORI ####[facility] Iwfvhhsrve4967 [place] [phone]. Anjali Reagan MYELOCYTE # Normal [facility] Comment on above: Performed By: #### C CORI ####[facility] Tkeveceuxq8784 [place] [address]Dr. Anjali Reagan MYELOCYTE % Normal [facility] Comment on above: Performed By: #### C CORI ####[facility] Bgavqxtfuy3841 [place] [address]Dr. Anjali Reagan NRBC Normal [facility] Comment on above: Performed By: #### C CORI ####[facility] Mjcsdfoxwa[address] [place], [place] [address]Dr. Anjali Reagan OVALOCYTES SLIGHT Normal [facility] Comment on above: Performed By: #### C CORI ####[facility] Nfylhtiznd4688 [place] [phone]. Anjali Reagan PLT 211 103/ul Normal 150-450 [facility] Comment on above: Performed By: #### C CORI ####[facility] Xvliumzqzc0819 [place] [phone]. Anjali Reagan POIKILOCYTOSIS SLIGHT Normal [facility] Comment on above: Performed By: #### C CORI ####[facility] Joyujzxzum9606 [place] [phone]. Anjali Reagan RBC 3.82 106/ul Critically low 4.70-6.10 [facility] Comment on above: Performed By: #### C CORI ####[facility] Fttqeojnqx4688 [place], [place] [address]Pw. Anjali Reagan RDW 18.4 % Critically high 11.0-15.[address] [facility] Comment on above: Performed By: #### C CORI ####[facility] Nftdvokqst0784 [place], [place] [address]Cb. Anjali Reagan SEG # 9.36 103/ul Critically high 1.40-6.50 [facility] Comment on above: Performed By: #### C CORI ####[facility] Mpirqukphm4043 [place], [place] [address]Sp. Anjali Reagan SEG % 90.0 % Critically high 43.0-75.0 [facility] Comment on above: Performed By: #### C CORI ####[facility] Cwzewwpauy9200 [place] [phone]. Anjali Reagan WBC 10.4 103/ul Normal 4.0-11.0 [facility] Comment on above: Performed By: #### Uzair PERSAUD ####[facility] Zrxeksewmx1085 [place], [place] [address]Jw. Anjali Reagan HEP B SURFACE ANTIGEN SCREEN on 02-09-2021 HBsAg Screen Negative Normal Negative [facility] Comment on above: Performed By: #### H BIANCANS ####[facility] Rakzqoitao3408 [place] [phone]. Anjali Reagan HEPATITIS C ANTIBODYon 02-09 Hep C Virus Ab <0.1 Normal 0.0-0.9 [facility] Comment on above: Result Comment: Nega tive: < 0.8 Indeterminate: 0.8 - 0.9 Positive: > 0.9 . The CDC recommends that a positive HCV antibody result be followed up with a HCV Nucleic Acid Amplification test (449959). Performed By: #### H CV ####[facility] Vjyggbmabe5587 [place] [phone]. Anjali Reagan HIV 1 AND 2 WITH REFLEXon HIV Screen 4th Generation wRfx Non-Reactive Normal Non Reactive [facility] Comment on above: Performed By: #### H IV12 ####[facility] Wyoailtnfj5928 [place] [address]Dr. Anjali Reagan POINT OF CARE GLUCOSEon 01-31 Glucose [Mass/Vol] 170 mg/dL Critically high -106 [facility] Comment on above: Performed By: #### P OCGLUC ####[facility] Syooiikncw6238 [place] [phone]. Anjail Reagan Glucose [Mass/Vol] 265 mg/dL Critically high -106 [facility] Comment on above: Performed By: #### P OCGLUC ####[facility] Oitpompojk8627 [place] [address]Dr. Anjali Reagan Glucose [Mass/Vol] 319 mg/dL Critically high -106 [facility] Comment on above: Performed By: #### P OCGLUC ####[facility] Finyskcecd1270 [place] [address]Dr. Anjali Reagan PROF 14(COMP METB)on 021 Albumin [Mass/Vol] 2.8 g/dL Critically low 3.5-5.0 [facility] Comment on above: Performed By: #### C MP ####[facility] Ywcvviyubn0606 [place] [address]Dr. Anjali Reagan Albumin/Globulin [Mass ratio] 0.7 {ratio} Normal [facility] Comment on above: Performed By: #### C MP ####[facility] Syvugvstsl9057 [place] [address]Dr. Anjali Reagan ALP [Catalytic activity/Vol] 117 U/L Normal 38-126 [facility] Comment on above: Performed By: #### C MP ####[facility] Tsbydwydzf4153 [place] [address]Dr. Anjali Reagan ALT [Catalytic activity/Vol] 21 U/L Normal 21-72 [facility] Comment on above: Performed By: #### C MP ####[facility] Zrbtjlnfpm6883 [place] [address]Dr. Anjali Reagan Anion gap [Moles/Vol] 13.0 mmol/L Normal [facility] Comment on above: Performed By: #### C MP ####[facility] Tnlumrwnrr5811 [place] [phone]. Anjali Reagan AST [Catalytic activity/Vol] 21 U/L Normal 17-59 [facility] Comment on above: Performed By: #### C MP ####[facility] Gasyeyqqtg0991 [place] [phone]. Anjali Reagan Bilirubin [Mass/Vol] 0.5 mg/dL Normal 0.2-1.3 [facility] Comment on above: Performed By: #### C MP ####[facility] Rrzbzsimwf7950 [place] [phone]. Anjali Reagan Calcium [Mass/Vol] 9.3 mg/dL Normal 8.4-10.2 [facility] Comment on above: Performed By: #### C MP ####[facility] Mnoemdumro[address] [place], [place] [address]Dr. Anjali Reagan Chloride [Moles/Vol] 100 mmol/L Normal 98-107 [facility] Comment on above: Performed By: #### C MP ####[facility] Yhfuxdmshx[address] [place], [place] [address]Dr. Anjali Reagan CO2 [Moles/Vol] 27.5 mmol/L Normal 22.0-30.0 [facility] Comment on above: Performed By: #### C MP ####[facility] Ysyqsvezht7755 [place] [phone]. Anjali Reagan Creatinine [Mass/Vol] 1.49 mg/dL Critically high 0.66-1.25 [facility] Comment on above: Performed By: #### C MP ####[facility] Uuzyqletwa1327 [place] [phone]. Anjali Reagan EGFR-AF MALIAN 58 mL/min/1.73m2 Critically low >=60 [facility] Comment on above: Performed By: #### C MP ####[facility] Eqtpwygjtt7244 [place] [address]Dr. Anjali Tez EGFR-NON AF MALIAN 48 mL/min/1.73m2 Critically low >=60 [facility] Comment on above: Performed By: #### C MP ####[facility] Fbqvfhkauk7890 [place] [address]Dr. Anjali Reagan Globulin (S) [Mass/Vol] 4.2 g/dL Normal [facility] Comment on above: Performed By: #### C MP ####[facility] Pfaugdxssh2869 [place] [phone]. Anjali Reagan Glucose [Mass/Vol] 276 mg/dL Critically high 74-106 [facility] Comment on above: Performed By: #### C MP ####[facility] Ddaldpfjta1706 [place] [phone]. Anjali Reagan Potassium [Moles/Vol] 4.5 mmol/L Normal 3.4-5.0 [facility] Comment on above: Performed By: #### C MP ####[facility] Zxlvfxmfip3710 [place] [address]Dr. Anjali Reagan Protein [Mass/Vol] 7.0 g/dL Normal 6.1-8.2 [facility] Comment on above: Performed By: #### C MP ####[facility] Facimetvsx7021 [place] [address]Dr. Anjali Reagan Sodium [Moles/Vol] 136 mmol/L Critically low 137-145 [facility] Comment on above: Performed By: #### C MP ####[facility] Chdoocxztl1887 [place] [address]Dr. Anjali Reagan Urea nitrogen [Mass/Vol] 42.0 mg/dL Critically high 9.0-20 .0 [facility] Comment on above: Performed By: #### C MP ####[facility] Nsjvpwbqhq3368 [place] [address]Dr. Anjali Reagan Urea nitrogen/Creatinine [Mass ratio] 28.2 mg/mg Normal [facility] Comment on above: Performed By: #### C MP ####[facility] Yxhzfxailg1804 [place] [address]Dr. Anjali Tez RPR QUANTon 02-09-2021 Rapid Plasma Reagin, Quant Non-Reactive Normal NonRea<1:1 [facility] Comment on above: Performed By: #### R PRQ ####[facility] Mlnteoiryw4398 [place] [address]Dr. Anjali Reagan XR ANKLE RT 2Von 02-09-2021 XR ANKLE RT 2V Normal [facility] XR TIB_FIB RT 2Von 1 XR TIB_FIB RT 2V Normal [facility] CRPon 02-08-2021 CRP 3.2 mg/dL Critically high <=1.0 [facility] Comment on above: Performed By: #### C RP ####[facility] Rzqnigyxqc9[address] [place], [place] [address]Dr. Biancaramona Reagan CULTURE ANAEROBICon 02-09-20 21 CULTURE ANAEROBIC Specimen Comments: RIGHT FOOT IRRIGATION SWAB Culture Observations: NO GROWTH AT 72 HRS Normal [facility] Comment on above: Performed By: #### A NACX ####[facility] Gcedhblhjb[address] [place], [place] [address]Dr. Yilan Reagan CULTURE ANAEROBIC Specimen Comments: RIGHT LEG REAMINGS Culture Observations: NO GROWTH OF ANAEROBES AT 72 HOURS. Normal [facility] Comment on above: Performed By: #### A NACX ####[facility] Yhnqeayhus[address] [place], [place] [address]Dr. Yilan Reagan CULTURE ANAEROBIC Culture Observations : NO GROWTH AT 72 HRS Normal [facility] Comment on above: Performed By: #### A NACX ####[facility] Fjjnpkooee4271 [place] [phone]. Yilan Reagan CULTURE ANAEROBIC Specimen Comments: RIGHT TIBIA BONE Culture Observations: NO GROWTH AT 72 HRS Normal [facility] Comment on above: Performed By: #### A NACX ####[facility] Ithggmemsj3620 [place] [phone]. Yilan Reagan CULTURE ANAEROBIC Specimen Comments: RIGHT CALCANEOUS BONE Culture Observations: NO GROWTH OF ANAEROBES AT 72 HOURS. Normal [facility] Comment on above: Performed By: #### A NACX ####[facility] Mwcuayiupr[address] [place], [place] [address]Dr. Yilan Reagan CULTURE ANAEROBIC Specimen Comments: RIGHT ANKLE ABSCESS Culture Observations: NO GROWTH AT 72 HRS Normal [facility] Comment on above: Performed By: #### A NACX ####[facility] Nczdgatqyl34[address] [place], [place] [address]Dr. Anjali Reagan CULTURE OTHERon 02-08-2021 CULTURE OTHER Specimen Comments: RIGHT LEG REAMINGS Culture Observations: NORMAL SKIN ARELI. Normal [facility] Comment on above: Performed By: #### O THCX ####[facility] Oxyfbkmong05[address] [place], [place] [address]Dr. Yilan Reagan CULTURE OTHER Specimen Comments: RIGHT FOOT IRRIGATION SWAB Culture Observations: NO GROWTH AT 72 HRS [facility] Comment on above: Performed By: #### O THCX ####[facility] Wmcmaktjsg[address] [place], [place] [address]Dr. Yilan Reagan CULTURE OTHER Specimen Comments: RIGHT CALCANEOUS BONE Culture Observations: NORMAL SKIN ARELI. Normal [facility] Comment on above: Performed By: #### O THCX ####[facility] Eizfdmkozq93[address] [place], [place] [address]Dr. Yilan Reagan CULTURE OTHER Specimen Comments: RIGHT TIBIA BONE Culture Observations: NO GROWTH AT 72 HRS [facility] Comment on above: Performed By: #### O THCX ####[facility] Bimyozaeln24[address] [place], [place] [address]Dr. Yiramona Reagan CULTURE OTHER Specimen Comments: RIGHT TALUS BONE Culture Observations: NORMAL SKIN ARELI. Normal [facility] Comment on above: Performed By: #### O THCX ####[facility] Huxhugnlmo63[address] [place], [place] [address]Dr. Yilan Reagan CULTURE OTHER Specimen Comments: RIGHT ANKLE ABSCESS Culture Observations: NO GROWTH AT 72 HRS [facility] Comment on above: Performed By: #### O THCX ####[facility] Juijvjczyl040[address] [place], [place] [address]Dr. Ajnali Reagan GRAM STAINon 02-08-2021 COMMENTS NO ORGANISMS OBSERVED [facility] Comment on above: Performed By: #### G STAIN ####[facility] Jthsiurabn27[address] [place], [place] [address]Dr. Yilan Reagan DIPHTHEROIDS Normal [facility] Comment on above: Performed By: #### G STAIN ####[facility] Mdocfgmcen9483 [place] [address]Dr. Anjali Reagan EPITHELIALS Normal [facility] Comment on above: Performed By: #### G STAIN ####[facility] Jqhudnypfh6622 [place] [address]Dr. Anjali Reagan FUNGAL ELEMENTS Normal [facility] Comment on above: Performed By: #### G STAIN ####[facility] Kefpugebxa1539 [place] [address]Dr. Anjali Reagan GRAM NEG BACILLI Normal [facility] Comment on above: Performed By: #### G STAIN ####[facility] Wmvcovitiu55[address] [place], [place] [address]Dr. Anjali Reagan GRAM NEG DIPPLOCOCCI Normal [facility] Comment on above: Performed By: #### G STAIN ####[facility] Zuethusfhe[address] [place], [place] [address]Dr. Anjali Reagan GRAM POS BACILLI Normal [facility] Comment on above: Performed By: #### G STAIN ####[facility] Cplfkycijx[address] [place], [place] [address]Dr. Anjali Reagan GRAM POSITIVE COCCI Normal [facility] Comment on above: Performed By: #### G STAIN ####[facility] Gfzokjmkws4[address] [place], [place] [address]Dr. Anjali Reagan GRAM STAIN SOURCE RIGHT LEG REAMINGS Normal [facility] Comment on above: Performed By: #### G STAIN ####[facility] Pppuefkklw0680 [place] [address]Dr. Anjali Reagan GRAM STAIN SOURCE RIGHT FOOT POST IRRIGATION SWAB Normal [facility] Comment on above: Performed By: #### G STAIN ####[facility] Rzfifrdmpg029[address] [place], [place] [address]Dr. Anjali Reagan GS_DIPTH Normal [facility] Comment on above: Performed By: #### G STAIN ####[facility] Bmvnluvkbd2[address] [place], [place] [address]Dr. Anjali Reagan WBC MODERATE Normal [facility] Comment on above: Performed By: #### G STAIN ####[facility] Szlwlrykvf7756 [place] [phone]. Anjali Reagan WBC NONE SEEN Normal [facility] Comment on above: Performed By: #### G STAIN ####[facility] Zkudemxdvt0243 [place] [phone]. Anjali Reagan COMMENTS NO ORGANISMS OBSERVED Normal [facility] Comment on above: Performed By: #### G STAIN ####[facility] Yrzclwcwsh0543 [place] [address]Dr. Anjali Reagan DIPHTHEROIDS Normal [facility] Comment on above: Performed By: #### G STAIN ####[facility] Wseylcrfwm[address] [place], [place] [address]Dr. Anjali Reagan EPITHELIALS Normal [facility] Comment on above: Performed By: #### G STAIN ####[facility] Peuhlctzbo[address] [place], [place] [address]Dr. Anjali Reagan FUNGAL ELEMENTS Normal [facility] Comment on above: Performed By: #### G STAIN ####[facility] Qlfismehaj9924 [place] [address]Dr. Anjali Reagan GRAM NEG BACILLI Normal [facility] Comment on above: Performed By: #### G STAIN ####[facility] Cvvlzkblzo0383 [place] [address]Dr. Anjali Reagan GRAM NEG DIPPLOCOCCI Normal [facility] Comment on above: Performed By: #### G STAIN ####[facility] Jqtdabiqgl4377 [place] [address]Dr. Anjali Reagan GRAM POS BACILLI Normal [facility] Comment on above: Performed By: #### G STAIN ####[facility] Jlfeauwtjn3754 [place] [address]Dr. Anjali Reagan GRAM POSITIVE COCCI Normal [facility] Comment on above: Performed By: #### G STAIN ####[facility] Mnulvzzrnx1221 [place] [address]Dr. Anjali Reagan GRAM STAIN SOURCE RIGHT TIBIA BONE Normal [facility] Comment on above: Performed By: #### G STAIN ####[facility] Oweaqvndwh2289 [place] [phone]. Anjali Reagan GRAM STAIN SOURCE RIGHT CALCANEOUS BONE Normal [facility] Comment on above: Performed By: #### G STAIN ####[facility] Hnwadebpmr9759 [place] [address]Dr. Anjali Reagan GRAM STAIN SOURCE RIGHT TALUS BONE Normal [facility] Comment on above: Performed By: #### G STAIN ####[facility] Dcrzpwhwpb2814 [place] [address]Dr. Anjali Reagan GS_DIPTH Normal [facility] Comment on above: Performed By: #### G STAIN ####[facility] Idvyncbqyi7267 [place] [address]Dr. Anjali Reagan WBC NONE SEEN Normal [facility] Comment on above: Performed By: #### G STAIN ####[facility] Gluekxlnel6569 [place] [address]Dr. Anjali Reagan WBC FEW Normal [facility] Comment on above: Performed By: #### G STAIN ####[facility] Oizsdyozgl4918 [place] [address]Dr. Anjali Reagan COMMENTS NO ORGANISMS OBSERVED Normal [facility] Comment on above: Performed By: #### G STAIN ####[facility] Iniwvricju6714 [place] [address]Dr. Anjali Reagan DIPHTHEROIDS Normal [facility] Comment on above: Performed By: #### G STAIN ####[facility] Zxekahtlsf5286 [place] [address]Dr. Anjali Reagan EPITHELIALS Normal [facility] Comment on above: Performed By: #### G STAIN ####[facility] Vywyjuxdjb9771 [place] [address]Dr. Anjali Reagan FUNGAL ELEMENTS Normal [facility] Comment on above: Performed By: #### G STAIN ####[facility] Ivwajipije6087 [place] [address]Dr. Anjali Reagan GRAM NEG BACILLI Normal [facility] Comment on above: Performed By: #### G STAIN ####[facility] Ioxotdndjw7982 [place] [phone]. Anjali Reagan GRAM NEG DIPPLOCOCCI Normal [facility] Comment on above: Performed By: #### G STAIN ####[facility] Ebhpaysfrs5250 [place] [phone]. Anjali Reagan GRAM POS BACILLI Normal [facility] Comment on above: Performed By: #### G STAIN ####[facility] Ntgmscdndy7678 [place] [phone]. Anjali Reagan GRAM POSITIVE COCCI Normal [facility] Comment on above: Performed By: #### G STAIN ####[facility] Fhbesbfqyw[address] [place], [place] [address]Dr. Anjali Reagan GRAM STAIN SOURCE RIGHT FOOT ABSCESS SWAB Normal [facility] Comment on above: Performed By: #### G STAIN ####[facility] Gvoftxzjpq75[address] [place], [place] [address]Dr. Anjali Reagan GS_DIPTH Normal [facility] Comment on above: Performed By: #### G STAIN ####[facility] Eddvvroxvk4[address] [place], [place] [address]Dr. Anjali Reagan WBC RARE Normal [facility] Comment on above: Performed By: #### G STAIN ####[facility] Xsyznkjbdq9538[address] [place], [place] [address]Dr. Anjali Reagan HIV 1/2 RAPID (EXPOSURE ONLY )on 02-08-2021 HIV AB Negative [facility] Comment on above: Performed By: #### R PDHIV ####[facility] Rjabtuugvz7397[address] [place], [place] [address]Dr. Anjali Reagan HIV AG Negative Normal [facility] Comment on above: Performed By: #### R PDHIV ####[facility] Hnmyobfnhm5667[address] [place], [place] [address]Dr. Anjali Reagan INTERNAL CONTROLS Within Normal Limits Normal Wi thin Normal Limits [facility] Comment on above: Performed By: #### R PDHIV ####[facility] Bnsonvsmdu2597[address] [place], [place] [address]Dr. Anjali Reagan RAPID HIV INFO SEE BELOW Normal [facility] Comment on above: Result Comment: This test is used for the initial screening of the exposure source. Confirmation of all results will be obtained through reference lab testing. Performed By: #### R PDHIV ####[facility] Aiiahuqlqz7764[address] [place], [place] [address]Dr. Anjali Reagan POINT OF CARE GLUCOSEon 11-0 Glucose [Mass/Vol] 400 mg/dL Critically high 74-106 [facility] Comment on above: Performed By: #### P OCGLUC ####[facility] Xkovupffje66[address] [place], [place] [address]Dr. Anjali Reagan Glucose [Mass/Vol] 373 mg/dL Critically high -106 [facility] Comment on above: Performed By: #### P OCGLUC ####[facility] Gzmbhckfbw7[address] [place], [place] [address]Dr. Anjali Reagan Glucose [Mass/Vol] 159 mg/dL Critically high -106 [facility] Comment on above: Performed By: #### P OCGLUC ####[facility] Malgliynrz8566[address] [place], [place] [address]Dr. Anjali Reagan Glucose [Mass/Vol] 160 mg/dL Critically high -106 [facility] Comment on above: Performed By: #### P OCGLUC ####[facility] Yuppbbtuha8[address] [place], [place] [address]Dr. Anjali Reagan SED RATE WESTERGRENon 2020 SED RATE 51 mm/hr Critically high <=[address] [facility] Comment on above: Performed By: #### S EDR ####[facility] Kwikdqhcno4428[address] [place], [place] [address]Dr. Anjali Reagan CBC W MANUAL DIFFon 02-06-20 21 ATYPICAL LYMPH # Normal [facility] Comment on above: Performed By: #### C BCMAN ####[facility] Zyxxnhalzg354[address] [place], [place] [address]Dr. Anjali Tez ATYPICAL LYMPH % Normal [facility] Comment on above: Performed By: #### C BCMAN ####[facility] Fkheowinzf9[address] [place], [place] [address]Dr. Anjali Reagan BAND # 0.2 103/ul Normal 0.0-0.3 [facility] Comment on above: Performed By: #### C BCMAN ####[facility] Newvqimftm8120 [place] [address]Dr. Anjali Reagan BAND % 3 % Normal 0-5 [facility] Comment on above: Performed By: #### C BCMAN ####[facility] Spaueqowad0936 [place] [id number]. Anjali Reagan BASOM # 0.07 103/ul Normal 0.00-0.10 [facility] Comment on above: Performed By: #### C BCFIONA ####[facility] Dmlqylvvcc2734 [place] [address]Dr. Anjali Reagan BASOM % 1.0 % Normal 0.2-2.0 [facility] Comment on above: Performed By: #### C CORI ####[facility] Crhzkifztc6071 [place] [address]Dr. Anjali Reagan BLAST # Normal [facility] Comment on above: Performed By: #### C CORI ####[facility] Qwsfstbcud1970 [place] [address]Dr. Anjali Reagan BLAST % Normal [facility] Comment on above: Performed By: #### C BCFIONA ####[facility] Tfyftpaovx7497 [place] [id number]. Anjali Reagan CORRECTED WBC Normal 4.0-11.0 [facility] Comment on above: Performed By: #### C BCFIONA ####[facility] Adnxgkpfdi3981 [place] [id number]. Anjali Reagan EOS # 0.57 103/ul Normal 0.00-0.70 [facility] Comment on above: Performed By: #### C BCFIONA ####[facility] Teyrxhauix5978 [place] [address]Dr. Anjali Reagan EOS% 8.0 % Critically high 0.9-7.0 [facility] Comment on above: Performed By: #### C CORI ####[facility] Evijhjmdxz83[address] [place], [place] [address]Dr. Anjali Reagan HCT 32.9 % Critically low 42.0-54.0 [facility] Comment on above: Performed By: #### C CORI ####[facility] Bkgkqdejgr1359 [place] [id number]. Anjali Reagan HGB 10.2 g/dl Critically low 14.0-18.0 [facility] Comment on above: Performed By: #### C CORI ####[facility] Gvnnokdcbr3078 [place] [id number]. Anjali Reagan LYMPHM # 0.78 103/ul Critically low 1.20-3.[address] [facility] Comment on above: Performed By: #### C CORI ####[facility] Dwvicibmcq637[address] [place], [place] [address]Dr. Anjali Reagan LYMPHM% 11.0 % Critically low 20.5-60.0 [facility] Comment on above: Performed By: #### C CORI ####[facility] Shqsflktum033[address] [place], [place] [address]Dr. Anjali Reagan MCH 24.9 pg Critically low 25.9-34.0 [facility] Comment on above: Performed By: #### Uzair PERSAUD ####[facility] Cqcazfjvif[address] [place], [place] [address]Dr. Anjali Reagan MCHC 31.0 g/dl Normal 29.9-35.2 [facility] Comment on above: Performed By: #### Uzair PERSAUD ####[facility] Bsucwdrhhe[address] [place], [place] [address]Dr. Anjali Reagan MCV 80.4 fL Normal 80.0-94.0 [facility] Comment on above: Performed By: #### C CORI ####[facility] Pjmhfjdywk6[address] [place], [place] [address]Dr. Anjali Reagan METAMYELOCYTE # Normal [facility] Comment on above: Performed By: #### C CORI ####[facility] Oubbcwvnki014[address] [place], [place] [address]Dr. Anjali Reagan METAMYELOCYTE % Normal [facility] Comment on above: Performed By: #### C CORI ####[facility] Eibbjybqyo1718 [place] [id number]. Anjali Reagan MONOM# 0.57 103/ul Normal 0.30-0.80 [facility] Comment on above: Performed By: #### C CORI ####[facility] Nlvrdajdes5916 [place] [id number]. Anjali Reagan MONOM% 8.0 % Normal 1.7-12.0 [facility] Comment on above: Performed By: #### C CORI ####[facility] Ohjzwcxpsr2097 [place] [id number]. Anjali Reagan MPV 9.2 fL Critically low 9.5-13.5 [facility] Comment on above: Performed By: #### Uzair PERSAUD ####[facility] Wfdzgzlxvv0945[address] [place], [place] [address]Dr. Anjali Reagan MYELOCYTE # Normal [facility] Comment on above: Performed By: #### Uzair PERSAUD ####[facility] Ftjdkmnpbq99[address] [place], [place] [address]Dr. Anjali Reagan MYELOCYTE % Normal [facility] Comment on above: Performed By: #### Uzair PERSAUD ####[facility] Rdvwajvlph5955[address] [place], [place] [address]Dr. Anjali Reagan NRBC Normal [facility] Comment on above: Performed By: #### Uzair PERSAUD ####[facility] Sepvxzpicy0620 [place] [address]Dr. Anjali Reagan OVALOCYTES 1+ Normal [facility] Comment on above: Performed By: #### C CORI ####[facility] Zrlminxocn8650[address] [place], [place] [address]Dr. Anjali Reagan PLT 209 103/ul Normal 150-450 [facility] Comment on above: Performed By: #### C CORI ####[facility] Ytttdjsvrn[address] [place], [place] [address]Dr. Anjali Reagan RBC 4.09 106/ul Critically low 4.70-6.10 [facility] Comment on above: Performed By: #### C CORI ####[facility] Jqashbzddm1241 [place], [place] [address]Am. Anjali Reagan RDW 18.2 % Critically high 11.0-15.0 [facility] Comment on above: Performed By: #### C CORI ####[facility] Pihpotkgel4814 [place], [place] [address]Sx. Anjali Reagan SEG # 4.90 103/ul Normal 1.40-6.50 [facility] Comment on above: Performed By: #### C CORI ####[facility] Trkhbjonyu8232 [place], [place] [address]Ix. Anjali Reagan SEG % 69.0 % Normal 43.0-75.0 [facility] Comment on above: Performed By: #### C CORI ####[facility] Xffiqtarmx3822 [place], [place] [address]Fa. Anjali Reagan WBC 7.1 103/ul Normal 4.0-11.0 [facility] Comment on above: Performed By: #### Uzair PERSAUD ####[facility] Igygemhiva8939 [place], [place] [address]Yt. Anjali Reagan CT ABD/PELVIS WO CONon 02-05 CT ABD/PELVIS WO CON Normal [facility] Covid-19 PCR ([facility])on SARS-CoV-2 (COVID-19) RNA MEREDITH+probe Ql (Unsp spec) Not detected Normal NOT DETECTED [facility] Comment on above: Result Comment: This test is not yet approved or cleared by the [place] FDA. When there are no FDA-approved or cleared tests available, and other criteria are met, FDA can make tests available under an emergency access mechanism called an Emergency Use Authorization (EUA). The EUA for this test is supported by the Driver Wheelchair of Health and Human Service's (HHS's) declaration [...] symptomsconsistent with SARS-CoV-2. Performed By: #### C [facility] ####[facility] Lhngojpfmi0350[address] [place], [place] [address]Dr. Anjali Reagan ER URINE PROFILEon 1 Bilirubin Ql (U) Negative Normal NEGATIVE [facility] Comment on above: Performed By: #### E RUR ####[facility] Mahjqdjlkk836[address] [place], [place] [address]Dr. Biancalan Reagan Clarity (U) CLEAR Normal CLEAR [facility] Comment on above: Performed By: #### E RUR ####[facility] Seretlmgnu659[address] [place], [place] [address]Dr. Yilan Reagan Color (U) LT. YELLOW Normal YELLOW [facility] Comment on above: Performed By: #### E RUR ####[facility] Kzlbxmafgf15[address] [place], [place] [address]Dr. Anjali Reagan ERUAHD A micrscopic examination will be performed if indicated. Normal [facility] Comment on above: Performed By: #### E RUR ####[facility] Tckjiezqtz6119[address] [place], [place] [address]Dr. Yilan Reagan Glucose Ql (U) Negative Normal NEGATIVE [facility] Comment on above: Performed By: #### E RUR ####[facility] Yuctyxgkca073[address] [place], [place] [address]Dr. Yilan Reagan Hemoglobin Ql (U) Negative Normal NEGATIVE [facility] Comment on above: Performed By: #### E RUR ####[facility] Obuqtowwkb656[address] [place], [place] [address]Dr. Yilan Reagan Ketones Ql (U) Negative Normal NEGATIVE [facility] Comment on above: Performed By: #### E RUR ####[facility] Nbedprepqq769[address] [place], [place] [address]Dr. Yilan Reagan LEUKOCYTES Negative Normal NEGATIVE [facility] Comment on above: Performed By: #### E RUR ####[facility] Pfcseicsbv8579 [place] [address]Dr. Anjali Reagan Nitrite Ql (U) Negative Normal NEGATIVE [facility] Comment on above: Performed By: #### E RUR ####[facility] Mwbhzwqcxk4478 [place] [address]Dr. Anjali Reagan pH (U) 6.0 [pH] Normal 5-9 [facility] Comment on above: Performed By: #### E RUR ####[facility] Xexlauxviv4450[address] [place], [place] [address]Dr. Anjali Reagan SPEC GRAVITY 1.015 Normal 1.005-<=1.0 25 [facility] Comment on above: Performed By: #### E RUR ####[facility] Qhmmcpvxeo712[address] [place], [place] [address]Dr. Anjali Reagan UA PROTEIN TRACE Normal NEGATIVE/ TRACE [facility] Comment on above: Performed By: #### E RUR ####[facility] Ixnxxrcyvq478[address] [place], [place] [address]Dr. Anjali Reagan UR MICRO IND NOT INDICATED Normal [facility] Comment on above: Performed By: #### E RUR ####[facility] Ymbhxxwwtp6367[address] [place], [place] [address]Dr. Anjali Reagan Urobilinogen Qn (U) 0.2 {Geremias'U}/dL Normal 0.2 - 1. 0 [facility] Comment on above: Performed By: #### E RUR ####[facility] Awfpojkein313[address] [place], [place] [address]Dr. Anjali Reagan PROF 14(COMP METB)on 021 Albumin [Mass/Vol] 2.8 g/dL Critically low 3.5-5.0 [facility] Comment on above: Performed By: #### C MP ####[facility] Xprjbskteu5197[address] [place], [place] [address]Dr. Anjali Reagan Albumin/Globulin [Mass ratio] 0.6 {ratio} Normal [facility] Comment on above: Performed By: #### C MP ####[facility] Bridxfrxbt7270 [place] [id number]. Anjali Reagan ALP [Catalytic activity/Vol] 125 U/L Normal 38-126 [facility] Comment on above: Performed By: #### C MP ####[facility] Aykwwvvojd7534 [place] [address]Dr. Anjali Reagan ALT [Catalytic activity/Vol] 22 U/L Normal 21-72 [facility] Comment on above: Performed By: #### C MP ####[facility] Zjgakcmjae6[address] [place], [place] [address]Dr. Anjali Reagan Anion gap [Moles/Vol] 13.1 mmol/L Normal e [facility] Comment on above: Performed By: #### C MP ####[facility] Smixnbcgjj0317[address] [place], [place] [address]Dr. Anjali Reagan AST [Catalytic activity/Vol] 26 U/L Normal 17-59 [facility] Comment on above: Performed By: #### C MP ####[facility] Gxsekhfxaj3177[address] [place], [place] [address]Dr. Anjali Reagan Bilirubin [Mass/Vol] 0.8 mg/dL Normal 0.2-1.3 [facility] Comment on above: Performed By: #### C MP ####[facility] Wfswskbeyw2587[address] [place], [place] [address]Dr. Anjali Reagan Calcium [Mass/Vol] 9.2 mg/dL Normal 8.4-10.2 [facility] Comment on above: Performed By: #### C MP ####[facility] Eesnrhtvtz2356[address] [place], [place] [address]Dr. Anjali Tez Chloride [Moles/Vol] 98 mmol/L Normal 98-107 [facility] Comment on above: Performed By: #### C MP ####[facility] Knlnikueiw8056[address] [place], [place] [address]Dr. Anjali Reagan CO2 [Moles/Vol] 28.7 mmol/L Normal 22.0-30.0 [facility] Comment on above: Performed By: #### C MP ####[facility] Qlegjfaelt0766[address] [place], [place] [address]Dr. Anjali Reagan Creatinine [Mass/Vol] 1.62 mg/dL Critically high 0.66-1.25 [facility] Comment on above: Performed By: #### C MP ####[facility] Xaelyzqlsb8554 [place] [address]Dr. Anjali Reagan EGFR-AF MALIAN 52 mL/min/1.73m2 Critically low >=60 [facility] Comment on above: Performed By: #### C MP ####[facility] Cugyfqttxj4887 [place] [address]Dr. Anjali Reagan EGFR-NON AF MALIAN 43 mL/min/1.73m2 Critically low >=60 [facility] Comment on above: Performed By: #### C MP ####[facility] Epayzbnboc7181 [place] [address]Dr. Anjali Reagan Globulin (S) [Mass/Vol] 4.6 g/dL Normal [facility] Comment on above: Performed By: #### C MP ####[facility] Jgbbitfrxr7547 [place] [address]Dr. Anjali Reagan Glucose [Mass/Vol] 192 mg/dL Critically high 74-106 [facility] Comment on above: Performed By: #### C MP ####[facility] Ckojtkgdby314[address] [place], [place] [address]Dr. Anjali Reagan Potassium [Moles/Vol] 4.8 mmol/L Normal 3.4-5.0 [facility] Comment on above: Performed By: #### C MP ####[facility] Croaxretmz8568 [place] [address]Dr. Anjali Tez Protein [Mass/Vol] 7.4 g/dL Normal 6.1-8.2 [facility] Comment on above: Performed By: #### C MP ####[facility] Pphxsljvpw054[address] [place], [place] [address]Dr. Anjali Reagan Sodium [Moles/Vol] 135 mmol/L Critically low 137-145 [facility] Comment on above: Performed By: #### C MP ####[facility] Ottxtqhwdt14[address] [place], [place] [address]Dr. Anjali Reagan Urea nitrogen [Mass/Vol] 40.0 mg/dL Critically high 9.0-20 .0 [facility] Comment on above: Performed By: #### C MP ####[facility] Hpxcixgfhb0797[address] [place], [place] [address]Dr. Anjali Reagan Urea nitrogen/Creatinine [Mass ratio] 24.7 mg/mg Normal [facility] Comment on above: Performed By: #### C MP ####[facility] Auzzoojkcw6108[address] [place], [place] [address]Dr. Anjali Reagan PROF CHEM 8 (BAS METB)on Anion gap [Moles/Vol] 13.4 mmol/L Normal [facility] Comment on above: Performed By: #### B MP ####[facility] Rnziiwxkxb2279[address] [place], [place] [address]Dr. Anjali Reagan Calcium [Mass/Vol] 9.3 mg/dL Normal 8.4-10.2 [facility] Comment on above: Performed By: #### B MP ####[facility] Xkyishkbjw037[address] [place], [place] [address]Dr. Anjali Reagan Chloride [Moles/Vol] 98 mmol/L Normal 98-107 [facility] Comment on above: Performed By: #### B MP ####[facility] Gksjsxmxyk2214[address] [place], [place] [address]Dr. Anjali Reagan CO2 [Moles/Vol] 28.8 mmol/L Normal 22.0-30.0 [facility] Comment on above: Performed By: #### B MP ####[facility] Uctvsgiflr8595[address] [place], [place] [address]Dr. Anjali Reagan Creatinine [Mass/Vol] 1.72 mg/dL Critically high 0.66-1.25 [facility] Comment on above: Performed By: #### B MP ####[facility] Uvpsbtpnbg9277[address] [place], [place] [address]Dr. Anjali Reagan EGFR-AF MALIAN 49 mL/min/1.73m2 Critically low >=60 [facility] Comment on above: Performed By: #### B MP ####[facility] Jeibieeqmi8521 [place] [id number]. Anjali Reagan EGFR-NON AF MALIAN 40 mL/min/1.73m2 Critically low >=60 [facility] Comment on above: Performed By: #### B MP ####[facility] Aknpnipmqy0366 [place] [id number]. Anjali Reagan Glucose [Mass/Vol] 204 mg/dL Critically high 74-106 [facility] Comment on above: Performed By: #### B MP ####[facility] Oxzwkwlfcq8100 [place] [id number]. Anjali Reagan Potassium [Moles/Vol] 4.2 mmol/L Normal 3.4-5.0 [facility] Comment on above: Performed By: #### B MP ####[facility] Hqtghbqzdj5952 [place] [address]Dr. Anjali Reagan Sodium [Moles/Vol] 136 mmol/L Critically low 137-145 [facility] Comment on above: Performed By: #### B MP ####[facility] Hfyoyufnda1163 [place] [id number]. Anjali Reagan Urea nitrogen [Mass/Vol] 35.0 mg/dL Critically high 9.0-20 .0 [facility] Comment on above: Performed By: #### B MP ####[facility] Yoyxecfspc0720 [place] [address]Dr. Anjali Reagan Urea nitrogen/Creatinine [Mass ratio] 20.3 mg/mg Normal [facility] Comment on above: Performed By: #### B MP ####[facility] Cxvpljcecb222[address] [place], [place] [address]Dr. Anjali Reagan CT ANKLE RT WO CONon 021 CT ANKLE RT WO CON Normal [facility] XR ANKLE RT MIN 3 VIEWSon XR ANKLE RT MIN 3 VIEWS Normal [facility] XR ANKLE RT MIN 3 VIEWSon XR ANKLE RT MIN 3 VIEWS Normal [facility] Otolaryngology Office/Clinic Noteon 01-19-2021 Otolaryngology Office/Clinic [...] Dr. Freed. Previous pathology by physician in [place] about 1 year ago. PMHx of multiple [...] 2. Basal (more content not included)... Normal [facility] BASIC METABOLIC PANEL W/O CA on 01-15-2021 Chloride [Moles/Vol] 98 mmol/L Normal 98-110 [facility] Comment on above: Order Comment: FASTI NG:YESFASTING: YES Performed By: #### 1 0165, 496, 905 #### [facility] [address], [address] [place] [address] Traffic Signal Technician: Juan Meraz MD CO2 [Moles/Vol] 26 mmol/L Normal 20-32 [facility] Comment on above: Order Comment: FASTI NG:YESFASTING: YES Performed By: #### 1 0165, 496, 905 #### [facility] [address], [address] [place] [address] Traffic Signal Technician: Juan Meraz MD Creatinine [Mass/Vol] 1.71 mg/dL High 0.70-1.[address] [facility] Comment on above: Order Comment: FASTI NG:YESFASTING: YES Result Comment: For patients >49 years of age, the reference limit for Creatinine is approximately 13% higher for people identified as -Palestinian. Performed By: #### 1 0165, 496, 905 #### [facility] [address], [address] [place] [address] Traffic Signal Technician: Juan Meraz MD eGFR NON-AFR. MALIAN 42 mL/min/1.73m2 Low > OR = 60 [facility] Comment on above: Order Comment: FASTI NG:YESFASTING: YES Performed By: #### 1 0165, 496, 905 #### [facility] [address], [address] [place] [address] Traffic Signal Technician: Juan Meraz MD GFR/1.73 sq M.predicted among blacks MDRD (S/P/Bld) [Vol rate/Area] 48 mL/min/{1.73_m2} Low > OR = 60 [facility] Comment on above: Order Comment: FASTI NG:YESFASTING: YES Performed By: #### 1 0165, 496, 905 #### [facility] [place] [address] Traffic Signal Technician: Juan Meraz MD Glucose [Mass/Vol] 186 mg/dL High 65-99 [facility] Comment on above: Order Comment: FASTI NG:YESFASTING: YES Result Comment: Fasting reference interval For someone without known diabetes, a glucose value >125 mg/dL indicates that they may have diabetes and this should be confirmed with a follow-up test. Performed By: #### 1 0165, 499, 905 #### [facility] [place] [address] Traffic Signal Technician: Juan Meraz MD Potassium [Moles/Vol] 4.3 mmol/L Normal 3.5-5.3 [facility] Comment on above: Order Comment: FASTI NG:YESFASTING: YES Performed By: #### 1 0165, 498, 905 #### [facility] [place] [address] Traffic Signal Technician: Juan Meraz MD Sodium [Moles/Vol] 137 mmol/L Normal 135-146 [facility] Comment on above: Order Comment: FASTI NG:YESFASTING: YES Performed By: #### 1 0165, 496, 905 #### [facility] [place] [address] Traffic Signal Technician: Juan Meraz MD Urea nitrogen [Mass/Vol] 34 mg/dL High 7-25 [facility] Comment on above: Order Comment: FASTI NG:YESFASTING: YES Performed By: #### 1 0165, 496, 905 #### [facility] [place] [address] Traffic Signal Technician: Juan Meraz MD Urea nitrogen/Creatinine [Mass ratio] 20 mg/mg Normal 6-22 [facility] Comment on above: Order Comment: SALLIE NG:YESFASTING: YES Performed By: #### 1 0165, 496, 905 #### [facility] of [place] [address] Traffic Signal Technician: Juan Meraz MD CBC (INCLUDES DIFF/PLT)on Basophils (Bld) [#/Vol] 0.026 10*3/uL Normal 0-200 [facility] Comment on above: Performed By: #### 1 0165, 496, 905 #### [facility] of [place] [address] Traffic Signal Technician: Juan Meraz MD Basophils/100 WBC (Bld) 0.3 % Normal [facility] Comment on above: Performed By: #### 1 0165, 496, 905 #### [facility] [place] [address] Traffic Signal Technician: Juan Meraz MD Eosinophils (Bld) [#/Vol] 0.202 10*3/uL Normal 15-500 [facility] Comment on above: Performed By: #### 1 0165, 496, 905 #### [facility] [place] [address] Traffic Signal Technician: Juan Meraz MD Eosinophils/100 WBC (Bld) 2.3 % Normal [facility] Comment on above: Performed By: #### 1 0165, 496, 905 #### [facility] [place] [address] Traffic Signal Technician: Juan Meraz MD Erythrocyte distribution width (RBC) [Ratio] 15.7 % High 11.0-15.0 [facility] Comment on above: Performed By: #### 1 0165, 496, 905 #### [facility] [place] [address] Traffic Signal Technician: Juan Meraz MD Hematocrit (Bld) [Volume fraction] 34.9 % Low 38.5-50.0 [facility] Comment on above: Performed By: #### 1 0165, 496, 905 #### [facility] [place] [address] Traffic Signal Technician: Juan Meraz MD Hemoglobin (Bld) [Mass/Vol] 10.9 g/dL Low 13.2-17.1 [facility] Comment on above: Performed By: #### 1 016, 496, 905 #### [facility] [place] [address] Traffic Signal Technician: Juan Meraz MD Lymphocytes (Bld) [#/Vol] 0.748 10*3/uL Low 850-3900 [facility] Comment on above: Performed By: #### 1 164, 496, 905 #### [facility] [place] [address] Traffic Signal Technician: Juan Meraz MD Lymphocytes/100 WBC (Bld) 8.5 % Normal [facility] Comment on above: Performed By: #### 1 164, 496, 905 #### [facility] [place] [address] Traffic Signal Technician: Juan Meraz MD MCH (RBC) [Entitic mass] 25.1 pg Low 27.0-33.0 [facility] Comment on above: Performed By: #### 1 164, 496, 905 #### [facility] [place] [address] Traffic Signal Technician: Juan Meraz MD MCHC (RBC) [Mass/Vol] 31.2 g/dL Low 32.0-36.[address] [facility] Comment on above: Performed By: #### 1 016, 496, 905 #### [facility] [place] [address] Traffic Signal Technician: Juan Meraz MD MCV (RBC) [Entitic vol] 80.4 fL Normal 80.0-100.0 [facility] Comment on above: Performed By: #### 1 0165, 496, 905 #### [facility] [place] [address] Traffic Signal Technician: Juan Meraz MD Monocytes (Bld) [#/Vol] 0.889 10*3/uL Normal 200-950 [facility] Comment on above: Performed By: #### 1 0165, 496, 905 #### [facility] [place] [address] Traffic Signal Technician: Juan Meraz MD Monocytes/100 WBC (Bld) 10.1 % Normal [facility] Comment on above: Performed By: #### 1 0165, 496, 905 #### [facility] [place] [address] Traffic Signal Technician: Juan Meraz MD Neutrophils (Bld) [#/Vol] 6.934 10*3/uL Normal 0203-7102 [facility] Comment on above: Performed By: #### 1 0165, 496, 905 #### [facility] [place] [address] Traffic Signal Technician: Juan Meraz MD Neutrophils/100 WBC (Bld) 78.8 % Normal [facility] Comment on above: Performed By: #### 1 0165, 496, 905 #### [facility] [place] [address] Traffic Signal Technician: Juan Meraz MD Platelet mean volume (Bld) [Entitic vol] 9.9 fL Normal 7.5-12.5 [facility] Comment on above: Performed By: #### 1 0165, 496, 905 #### [facility] [place] [address] Traffic Signal Technician: Juan Meraz MD Platelets (Bld) [#/Vol] 353 10*3/uL Normal 140-400 [facility] Comment on above: Performed By: #### 1 0165, 496, 905 #### [facility] [address] , [address] [place] [address] Traffic Signal Technician: Juan Meraz MD RBC (Bld) [#/Vol] 4.34 10*6/uL Normal 4.20-5.80 [facility] Comment on above: Performed By: #### 1 0165, 496, 905 #### [facility] [place] [address] [place] , [address] [place] [address] Traffic Signal Technician: Juan Meraz MD WBC (Bld) [#/Vol] 8.8 10*3/uL Normal 3.8-10.8 [facility] Comment on above: Performed By: #### 1 0165, 496, 905 #### [facility] [address], [address] [place] [address] Traffic Signal Technician: Juan Meraz MD Otolaryngology Office/Clinic Noteon 01-14-2021 [...] oral caps (more content not included)... Normal [facility] Otolaryngology Office/Clinic Noteon 01-12-2021 Otolaryngology Office/Clinic [...] Dr. Freed. Previous pathology by physician in [place] about 1 year ago. PMHx of multiple [...] separately bill (more content not included)... Normal [facility] Operative Reporton Operative Report Date: January [...] Chirag Gutierrez DO 01/11/21 20:09 EDT Normal [facility] Operative Report Date: January 11, 2021 [...] Chirag Gutierrez DO 01/11/21 09:28 EDT Normal [facility] POC Glucose Randomon 021 Glucose [Mass/Vol] 211 mg/dL High 70-99 [facility] Comment on above: Performed By: #### C D:[id number] ####[address] [address] CoV2 Agon 01-10-2021 Employed in healthcare? Unknown Normal B [facility] Comment on above: Performed By: #### C D:[id number] ####[address] [address] Group care resident? Unknown Normal [facility] Comment on above: Performed By: #### C [id number] ####[address] [address] In ICU? No Normal [facility] Comment on above: Performed By: #### C D:[id number] ####[address] [address] status? Not Applicable [facility] Comment on above: Performed By: #### C D:[id number] ####[address] [address] SARS-CoV-2 (COVID-19) RNA MEREDITH+probe Ql (Unsp spec) Normal Negative [facility] Comment on above: Result Comment: * [...] Negative ADDITIONAL INFORMATION: Testing performed on the RapidEnginess 3600 using the SARS-CoV-2 Antigen test. Results are for the identification of SARS-CoV-2 nucleocapsid antigen. The enGeneS SARS-CoV-2 Antigen test can detect both viable [...] test results. In the [place], the enGeneS SARS-CoV-2 Antigen test is only for use under the Food and Drug Administration?s Emergency Use Authorization. HCP Fact Sheet: https://www.fda.gov/media/195960/download Patient Fact Sheet: https://www.fda.gov/media/637767/download Performed By: #### C D:[id number] ####[address] [address] SARS-CoV-2 (COVID-19) RNA MEREDITH+probe Ql (Unsp spec) Unknown Normal [facility] Comment on above: Performed By: #### C D:[id number] ####[place] [address] [place] [address] Symptomatic as defined by CDC? Unknown Normal [facility] Comment on above: Performed By: #### C D:[id number] ####[address] [address] BASIC METABOLIC PANELon 10-0 Calcium [Mass/Vol] 9.6 mg/dL Normal 8.6-10.3 [facility] Comment on above: Performed By: #### 1 4370, 496, 905 #### [facility] [address], [address] [place] [address] Traffic Signal Technician: Juan Meraz MD Chloride [Moles/Vol] 100 mmol/L Normal 98-110 [facility] Comment on above: Performed By: #### 1 0165, 496, 905 #### [facility] [place] [address] Traffic Signal Technician: Juan Meraz MD CO2 [Moles/Vol] 30 mmol/L Normal 20-32 [facility] Comment on above: Performed By: #### 1 0165, 49, 905 #### [facility] [place] [address] Traffic Signal Technician: Juan Meraz MD Creatinine [Mass/Vol] 1.67 mg/dL High 0.70-1.[address] [facility] Comment on above: Result Comment: For patients >49 years of age, the reference limit for Creatinine is approximately 13% higher for people identified as -Palestinian. Performed By: #### 1 016, 496, 905 #### [facility] [place] [address] Traffic Signal Technician: Juan Meraz MD eGFR NON-AFR. MALIAN 43 mL/min/1.73m2 Low > OR = 60 [facility] Comment on above: Performed By: #### 1 016, 492, 905 #### [facility] [place] [address] Traffic Signal Technician: Juan Meraz MD GFR/1.73 sq M.predicted among blacks MDRD (S/P/Bld) [Vol rate/Area] 50 mL/min/{1.73_m2} Low > OR = 60 [facility] Comment on above: Performed By: #### 1 016, 494, 905 #### [facility] [place] [address] Traffic Signal Technician: Juan Meraz MD Glucose [Mass/Vol] 124 mg/dL High 65-99 [facility] Comment on above: Result Comment: Fasting reference interval For someone without known diabetes, a glucose value between 100 and 125 mg/dL is consistent with prediabetes and should be confirmed with a follow-up test. Performed By: #### 1 0165, 496, 905 #### [facility] [address], [address] [place] [address] Traffic Signal Technician: Juan Meraz MD Potassium [Moles/Vol] 4.7 mmol/L Normal 3.5-5.3 [facility] Comment on above: Performed By: #### 1 0165, 496, 905 #### [facility] [place] [address] Traffic Signal Technician: Juan Meraz MD Sodium [Moles/Vol] 138 mmol/L Normal 135-146 [facility] Comment on above: Performed By: #### 1 0165, 496, 905 #### [facility] [place] [address] Traffic Signal Technician: Juan Meraz MD Urea nitrogen [Mass/Vol] 40 mg/dL High 7-25 [facility] Comment on above: Performed By: #### 1 0165, 496, 905 #### [facility] [place] [address] Traffic Signal Technician: Juan Meraz MD Urea nitrogen/Creatinine [Mass ratio] 24 mg/mg High 6-22 [facility] Comment on above: Performed By: #### 1 0165, 496, 905 #### [facility] [place] [address] Traffic Signal Technician: Juan Meraz MD HEMOGLOBIN A1con 12-31-2020 HEMOGLOBIN [...] 1 0165, 496, 905 #### [facility] [address], [address] [place] [address] Traffic Signal Technician: Juan Meraz MD Provider Letteron 12-31-2020 Provider Letter [facility] Ear, Nose & Throat; Facial Plastic Surgery [address] [place] [address] P: [phone] F: [phone] [facility] Anai [id number] Date of Visit: 01/05/2021 ATTENTION MEDICAL RECORDS: We are requesting pathology report for biopsy of left ear done within the last 2 years for patient Anai Goodman 59. Thank you, [facility] Provider Letter [facility] Ear, Nose & Throat; Facial Plastic Surgery [address] [place], [place] [address] P: [phone] F: [phone] Chirag Gutierrez DO [facility] Re: Anai [id number] Date of Visit: 01/05/2021 ATTENTION MEDICAL RECORDS: We are requesting pathology report for biopsy of left ear done within the last 2 years for patient Anai Goodman. Thank you, [facility] Provider Letter [facility] Ear, Nose & Throat; Facial Plastic Surgery [address] [place], [place] [address] P: [phone] F: [phone] [place] [address] Re: Anai [id number] Date of Visit: 01/05/2021 [...] prior to 01/05/21. Thank you, Muna Normal [facility] URIC ACIDon 12-31-2020 Urate [Mass/Vol] 10.3 mg/dL High 4.0-8.0 [facility] Comment on above: Order Comment: FASTI NG:YES FASTING: YES Result Comment: Ther apeutic target for gout patients: <6.0 mg/dL Performed By: #### 1 0165, 496, 905 #### [facility] [address], [address] [place] [address] Traffic Signal Technician: Juan Meraz MD Provider Letteron 12-17-2020 Provider Letter Deon Brito [address] [place] [id number] Re: Anai Goodman Date of Visit: 12/15/2020 Dear Deon Braxton, I am referring Anai to your office for care. Attached your will find my notes and impressions from our visit. Deon Braxton DO Re:Anai Goodman 1955 Date of Visit: 12/15/2020 Dear Deon Braxton DO: I had the pleasure of evaluating patient, Anai Goodman, in the [facility] clinic on 12/15/2020. Attached you will [...] Gutierrez, DO [facility] of [address] [address] Let me know if you have any questions or concerns. Sincerely, Tyesha Dunne Providers: The following document(s) were included in the letter: December 15, 2020 13:30:00 EDT - (12/15/2020) Office Visit Note Normal [facility] Otolaryngology Office/Clinic Noteon 12-15-2020 Otolaryngology Office/Clinic [...] Dr. Freed. Previous pathology by physician in [place] about 1 year ago. PMHx of multiple [...] mL, 1 Refill(s), 12/18/20 14:00:00 EDT, Pharmacy: [id number] Medical Decision Making Chronic conditions NOT treated [...] 5000 intl (more content not included)... Normal [facility] Otolaryngology Office/Clinic Note Chief Complaint BCC [...] Dr. Freed. Previous pathology by physician in [place] about 1 year ago. PMHx of multiple [...] meal to (more content not included)... Normal [facility] XR ANKLE RT MIN 3 VIEWSon XR ANKLE RT MIN 3 VIEWS Normal [facility] XR FOOT RT MIN 3 VIEWSon XR FOOT RT MIN 3 VIEWS Normal [facility] XR FOOT RT MIN 3 VIEWSon XR FOOT RT MIN 3 VIEWS Normal [facility] XR FOOT RT MIN 3 VIEWSon XR FOOT RT MIN 3 VIEWS Normal [facility] Consultation Noteon 05-11-19 Consultation Note [id number] Normal [facility] Vital Signs Date Time Vital Sign Value Performing Clinician Facility 04-12-2023 11:11-0500 Body height 182.9 cm Terry ESCOBEDO Work Phone: [facility] 04-12-2023 11:11-0500 Body mass index (BMI) [Ratio] 28.89 kg/m2 Terry ESCOBEDO Work Phone: [facility] 04-12-2023 11:11-0500 Body weight 96.62 kg Terry ESCOBEDO Work Phone: [facility] 04-12-2023 11:11-0500 Diastolic blood pressure 74 mm[Hg] Terry ESCOBEDO Work Phone: [facility] 04-12-2023 11:11-0500 Heart rate 74 /min Terry ESCOBEDO Work Phone: [facility] 04-12-2023 11:11-0500 SaO2% (BldA) [Mass fraction] 97 % Terry ESCOBEDO Work Phone: [facility] 04-12-2023 11:11-0500 Systolic blood pressure 126 mm[Hg] Terry Lock PST MANAGER-SPEECH CLINICIAN Work Phone: [facility] 12-05-2022 13:00-0400 Body height 177.8 cm Ghanshyam Kaye Other [facility] Other 12-05-2022 13:00-0400 Diastolic blood pressure 70 mm[Hg] Ghanshyam Kaye Other [facility] Other 12-05-2022 13:00-0400 SaO2% (BldA) [Mass fraction] 97 % Ghanshyam Kaye Other [facility] Other 12-05-2022 13:00-0400 Systolic blood pressure 110 mm[Hg] Ghanshyam Kaye Other [facility] Other 10-05-2022 10:00-0400 Body height 177.8 cm Dung Serna Other [facility] Other 10-05-2022 10:00-0400 Body mass index (BMI) [Ratio] 31.85 kg/m2 Dung Serna Other [facility] Other 10-05-2022 10:00-0400 Body weight 100.7 kg Dung Serna Other [facility] Other 10-05-2022 10:00-0400 Diastolic blood pressure 70 mm[Hg] Dung Serna Other [facility] Other 10-05-2022 10:00-0400 Systolic blood pressure 118 mm[Hg] Dung Serna Other [facility] Other 06-02-2022 11:00-0500 Body height 177.8 cm Reddy Brandt Other [facility] Other 06-02-2022 11:00-0500 Body mass index (BMI) [Ratio] 30.13 kg/m2 Reddy Brandt Other [facility] Other 06-02-2022 11:00-0500 Body weight 95.26 kg Reddy Brandt Other [facility] Other 03-15-2022 13:45-0500 Body height 177.8 cm Reddy Brandt Other [facility] Other 03-15-2022 13:45-0500 Body mass index (BMI) [Ratio] 30.85 kg/m2 Reddy Brandt Other [facility] Other 03-15-2022 13:45-0500 Body weight 97.52 kg Reddy Brandt Other [facility] Other 02-07-2022 14:00-0500 Body height 177.8 cm Ghanshyam Shermaney Other [facility] Other 02-07-2022 14:00-0500 Body mass index (BMI) [Ratio] 30.85 kg/m2 Ghanshyam Kaye Other [facility] Other 02-07-2022 14:00-0500 Body weight 97.52 kg Ghanshyam Kaye Other [facility] Other 02-07-2022 14:00-0500 Diastolic blood pressure 72 mm[Hg] Ghanshyam Kaye Other [facility] Other 02-07-2022 14:00-0500 SaO2% (BldA) [Mass fraction] 98 % Ghanshyam Kaye Other [facility] Other 02-07-2022 14:00-0500 Systolic blood pressure 118 mm[Hg] Ghanshyam Kaye Other [facility] Other 11-29-2021 14:35-0400 Diastolic blood pressure 78 mm[Hg] DO Deon Cordovahas Work Phone: [facility] 11-29-2021 14:35-0400 Heart rate 75 /min DO Deon Cordovahas Work Phone: [facility] 11-29-2021 14:35-0400 Respiratory rate 16 /min DO Deon Cordovahas Work Phone: [facility] 11-29-2021 14:35-0400 SaO2% (BldA) [Mass fraction] 95 % DO Deon Cordovahas Work Phone: [facility] 11-29-2021 14:35-0400 Systolic blood pressure 123 mm[Hg] DO Deon Cordovahas Work Phone: [facility] 11-29-2021 13:39-0400 Inhaled oxygen flow rate 8 L/min DO Deon Cordovahas Work Phone: [facility] 11-29-2021 13:24-0400 Body temperature 98.5 [degF] DO Deon Cordovahas Work Phone: [facility] 11-29-2021 12:10-0400 Body height 182.88 cm DO Deon Cordovahas Work Phone: [facility] 11-29-2021 12:10-0400 Body mass index (BMI) [Ratio] 30.5 kg/m2 DO Deon Tashahas Work Phone: [facility] 11-29-2021 12:10-0400 Body weight 102.05 kg DO Deon Tashahas Work Phone: [facility] 11-03-2021 10:41-0400 Diastolic blood pressure 66 mm[Hg] DO Deon Tashahas Work Phone: [facility] 11-03-2021 10:41-0400 Heart rate 78 /min DO Deon Tashahas Work Phone: [facility] 11-03-2021 10:41-0400 Respiratory rate 16 /min DO Deon Tashahas Work Phone: [facility] 11-03-2021 10:41-0400 SaO2% (BldA) [Mass fraction] 97 % DO Deon Cordovahas Work Phone: [facility] 11-03-2021 10:41-0400 Systolic blood pressure 121 mm[Hg] DO Deon Cordovahas Work Phone: [facility] 11-03-2021 09:41-0400 Body temperature 98 [degF] DO Deon Cordovahas Work Phone: [facility] 11-03-2021 09:11-0400 Inhaled oxygen flow rate 8 L/min DO Deon Cordovahas Work Phone: [facility] 11-03-2021 07:37-0400 Body height 182.88 cm DO Deon Cordovahas Work Phone: [facility] 11-03-2021 07:37-0400 Body mass index (BMI) [Ratio] 30.5 kg/m2 DO Deon Tashahas Work Phone: [facility] 11-03-2021 07:37-0400 Body weight 102.05 kg DO Deon Tashahas Work Phone: [facility] 11-01-2021 18:03-0400 Diastolic blood pressure 69 mm[Hg] DO Deon Yuhas Work Phone: [facility] 11-01-2021 18:03-0400 Heart rate 71 /min DO Deon Tashahas Work Phone: [facility] 11-01-2021 18:03-0400 Respiratory rate 16 /min DO Deon Yuhas Work Phone: [facility] 11-01-2021 18:03-0400 SaO2% (BldA) [Mass fraction] 99 % DO Deon Yuhas Work Phone: [facility] 11-01-2021 18:03-0400 Systolic blood pressure 124 mm[Hg] DO Deon Yuhas Work Phone: [facility] 11-01-2021 16:21-0400 Body height 182.88 cm DO Deon Yuhas Work Phone: [facility] 11-01-2021 16:21-0400 Body temperature 98 [degF] DO Deon Yuhas Work Phone: [facility] 11-01-2021 16:21-0400 Body weight 102.05 kg DO Deon Yuhas Work Phone: [facility] 10-31-2021 10:30-0400 Body height 177.8 cm Reddy Brandt Other [facility] Other 10-27-2021 05:00-0400 Body temperature 98.6 [degF] DO Deon Tashahas Work Phone: [facility] 10-27-2021 05:00-0400 Diastolic blood pressure 72 mm[Hg] DO Deon Yuhas Work Phone: [facility] 10-27-2021 05:00-0400 Heart rate 70 /min DO Deon Yuhas Work Phone: [facility] 10-27-2021 05:00-0400 Respiratory rate 16 /min DO Deon Yuhas Work Phone: [facility] 10-27-2021 05:00-0400 SaO2% (BldA) [Mass fraction] 98 % DO Deon Yuhas Work Phone: [facility] 10-27-2021 05:00-0400 Systolic blood pressure 132 mm[Hg] DO Deon Cordovahas Work Phone: [facility] 10-24-2021 12:00-0400 Body height 182.88 cm DO Deon Cordovahas Work Phone: [facility] 10-23-2021 05:26-0400 Body weight 70.9 kg DO Deon Cordovahas Work Phone: [facility] 10-22-2021 04:14-0400 Inhaled oxygen concentration 21 % DO Deon Cordovahas Work Phone: [facility] 10-21-2021 12:00-0400 Body temperature 98.1 [degF] DO Deon Cordovahas Work Phone: [facility] 10-21-2021 12:00-0400 Diastolic blood pressure 73 mm[Hg] DO Deon Cordovahas Work Phone: [facility] 10-21-2021 12:00-0400 Heart rate 76 /min DO Deon Ramoss Work Phone: [facility] 10-21-2021 12:00-0400 Respiratory rate 18 /min DO Deon Ramoss Work Phone: [facility] 10-21-2021 12:00-0400 SaO2% (BldA) [Mass fraction] 95 % DO Deon Cordovahas Work Phone: [facility] 10-21-2021 12:00-0400 Systolic blood pressure 128 mm[Hg] DO Deon Cordovahas Work Phone: [facility] 10-21-2021 06:00-0400 Body weight 99.9 kg DO Deon Tashahas Work Phone: [facility] 10-21-2021 02:05-0400 Inhaled oxygen concentration 21 % DO Deon Tashahas Work Phone: [facility] 10-19-2021 11:00-0400 Body height 182.88 cm DO Deon Braxton Work Phone: [facility] 10-18-2021 15:37-0400 Inhaled oxygen flow rate 6 L/min DO Deon Braxton Work Phone: [facility] 10-18-2021 13:19-0400 Body mass index (BMI) [Ratio] 29.8 kg/m2 DO Deon Braxton Work Phone: [facility] 10-12-2021 10:00-0400 Body height 177.8 cm Reddy Karly Other [facility] Other 10-12-2021 10:00-0400 Body mass index (BMI) [Ratio] 32.28 kg/m2 Reddy Karly Other [facility] Other 10-12-2021 10:00-0400 Body weight 102.06 kg Reddy Karly Other [facility] Other 10-06-2021 14:15-0400 Body height 177.8 cm Pako Aguilar Other [facility] Other 10-06-2021 14:15-0400 Body mass index (BMI) [Ratio] 32.28 kg/m2 Pako Aguilar Other [facility] Other 10-06-2021 14:15-0400 Body temperature 97.3 [degF] Pako Aguilar Other [facility] Other 10-06-2021 14:15-0400 Body weight 102.06 kg Pako Aguilar Other [facility] Other 10-06-2021 14:15-0400 Diastolic blood pressure 73 mm[Hg] Pako Aguilar Other [facility] Other 10-06-2021 14:15-0400 Systolic blood pressure 127 mm[Hg] Pako Aguilar Other [facility] Other 09-08-2021 15:30-0400 Body height 177.8 cm Pako Aguilar Other [facility] Other 09-08-2021 15:30-0400 Body temperature 98.1 [degF] Pako Aguilar Other [facility] Other 09-08-2021 15:30-0400 Diastolic blood pressure 73 mm[Hg] Pako Leon Other [facility] Other 09-08-2021 15:30-0400 Systolic blood pressure 149 mm[Hg] Pako Leon Other [facility] Other Encounters Encounter Date Encounter Type Care Provider Facility Start: 10-01-2023 End: 10-01-2023 ambulatory [facility] Start: 09-18-2023 End: 09-18-2023 ambulatory [facility] Start: 09-13-2023 End: 09-13-2023 ambulatory [facility] Start: 09-06-2023 End: 09-06-[address] [facility] Start: 08-02-2023 End: 08-03-2023 ambulatory [facility] Start: 08-02-2023 End: 08-02-2023 ambulatory [facility] Start: 08-01-2023 End: 08-01-2023 ambulatory [...] arthropathy, with long-term current use of insulin ([facility] Start: 05-12-2023 Refill Deon Grace Walker O Work Phone: [facility] Comment on above: Pure hypercholestero [facility] Refill Start: 04-19-2023 End: 04-19-2023 ambulatory Salina Walker [facility] Facility:[facility] Start: 04-19-2023 End: 04-19-2023 ambulatory DO Deon Ramoss Work Phone: [facility] Work Phone: Start: 04-19-2023 End: 04-19-2023 Departed Referred DO Deon Ramoss Work Phone: [facility]-LAB [facility] Start: 04-13-2023 Refill Kaylene Mcnamaraedi [facility] Comment on above: 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, with long-term current use of insulin ([facility]) Start: 04-12-2023 End: 04-12-2023 ambulatory TERRY LOCK [facility] Start: 04-12-2023 Encounter for prepro cedural cardiovascular examination TERRY LOCK [facility] Start: 04-12-2023 End: 04-12-2023 Office outpatient visit 25 minutes Terry Lock PST MANAGER-SPEECH CLINICIAN Work Phone: [facility] Comment on above: Preop cardiovascular exam (Primary Dx); 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 Start: 04-03-2023 End: 04-03-2023 ambulatory Dung Serna Other [facility] Other Start: 04-03-2023 Telephone encounter Dung Serna [facility] Start: 03-22-2023 End: 03-23-2023 ambulatory [facility] Start: 03-22-2023 End: 03-22-2023 ambulatory YOVANNY CALHOUN Not Available Start: 03-22-2023 End: 03-22-2023 ambulatory YOVANNY CALHOUN Not Available Start: 03-22-2023 End: 03-22-2023 ambulatory [facility] Start: 03-07-2023 End: 03-07-2023 ambulatory ZOEYERIC KIMBLEILL Not Available Start: 01-11-2023 End: 01-11-2023 ambulatory Ghanshyam Kaye Other [facility] Other Start: 01-11-2023 Telephone encounter Ghanshyam Kaye [facility] Start: 12-05-2022 End: 12-05-2022 ambulatory Ghanshyam Kaye Other [facility] Other Start: 12-05-2022 Office outpatient vi sit 15 minutes Ghanshyam Kaye [facility] Start: 10-05-2022 Office outpatient ne w 30 minutes Dung Serna [facility] Start: 10-05-2022 End: 10-05-2022 ambulatory [facility] Other Start: 08-02-2022 End: 08-02-2022 ambulatory Reddy Brandt Other [facility] Other Start: 08-02-2022 Office outpatient vi sit 15 minutes Reddy Brandt [facility] Start: 06-02-2022 End: 06-02-2022 ambulatory Reddy Brandt Other [facility] Other Start: 06-02-2022 Postop follow up vis it related to original px Reddy Brandt [facility] Start: 05-12-2022 End: 05-12-2022 ambulatory Reddy Brandt Other [facility] Other Start: 05-12-2022 Telephone encounter Reddy MOE G [facility] Start: 05-03-2022 End: 05-03-2022 ambulatory DO Deon Braxton Work Phone: [facility] Work Phone: Start: 05-03-2022 End: 05-03-2022 Patient encounter procedure DO Deon Braxton Work Phone: [facility]-Outpatient [address] Start: 04-28-2022 End: 04-28-2022 ambulatory Reddy Brandt Other [facility] Other Start: 04-28-2022 Office outpatient vi sit 15 minutes Reddy Brandt [facility] Start: 04-17-2022 End: 04-17-2022 ambulatory Reddy Brandt Other [place] Other Start: 04-17-2022 Telephone encounter Reddy MOE G [facility] Start: 04-12-2022 End: 04-12-2022 ambulatory Reddy Brandt Other [place] Other Start: 04-12-2022 Postop follow up vis it related to original px Reddy Karly [facility] Start: 03-15-2022 End: 03-15-2022 ambulatory Reddy Karly Other [facility] Other Start: 03-15-2022 Office outpatient vi sit 15 minutes Reddy Meehanley [facility] Start: 02-07-2022 End: 02-07-2022 ambulatory Ghanshyam Kaye Other [place] Other Start: 02-07-2022 Office outpatient vi sit 15 minutes Ghanshyam Shermaney [facility] Start: 02-03-2022 End: 02-03-2022 ambulatory Reddy Karly Other [place] Other Start: 02-03-2022 Postop follow up vis it related to original px Reddy Brandt [facility] Start: 01-24-2022 End: 01-24-2022 ambulatory Reddy Brandt Other [place] Other Start: 01-24-2022 Telephone encounter Reddy MOE G [facility] Start: 01-20-2022 End: 01-20-2022 ambulatory Reddy Brandt Other [facility] Other Start: 01-20-2022 Postop follow up vis it related to original px Reddy Karly [facility] Start: 01-16-2022 End: 01-16-2022 ambulatory Reddy Brandt Other [facility] Other Start: 01-16-2022 Telephone encounter Reddy MOE G Cardiac Catheterization Technician Start: 01-06-2022 End: 01-06-2022 ambulatory Reddy Brandt Other [facility] Other Start: 01-06-2022 Postop follow up vis it related to original px Reddy Brandt [facility] Start: 12-23-2021 End: 12-23-2021 ambulatory Reddy Karly Other [facility] Other Start: 12-23-2021 Postop follow up vis it related to original px Reddy Brandt [facility] Start: 12-20-2021 End: 12-20-2021 Discharged Recurring DO Deon Braxton Work Phone: [facility]-Infusion Therapy - O/P Start: 12-14-2021 End: 12-14-2021 ambulatory Reddy Brandt Other [facility] Other Start: 12-14-2021 Postop follow up vis it related to original px Reddy Brandt [facility] Start: 12-12-2021 End: 12-12-2021 ambulatory Reddy Brandt Other [facility] Other Start: 12-12-2021 Telephone encounter Reddy Karly FP G [facility] Start: 12-09-2021 End: 12-09-2021 ambulatory Reddy Karly Other [facility] Other Start: 12-09-2021 Postop follow up vis it related to original px Reddy Meehanley [facility] Start: 11-29-2021 End: 11-29-2021 Evaluation and management of inpatient DO Deon Braxton Work Phone: [facility]-[address] [place] [address] Surgical Start: 11-29-2021 End: 11-29-2021 Admission to same day surgery center DO Deon Braxton Work Phone: [facility] [place] Start: 11-28-2021 End: 11-28-2021 ambulatory Reddy Karly Other [place] [employer] Other Start: 11-28-2021 Postop follow up vis it related to original px Reddy Karly [facility] Start: 11-21-2021 End: 11-21-2021 ambulatory Reddy Brandt Other [facility] Other Start: 11-21-2021 Telephone encounter Redyd MOE G [facility] Start: 11-03-2021 End: 11-03-2021 Admission to same day surgery center DO Deon Ramosanival Work Phone: [facility] [place] Start: 11-02-2021 End: 11-02-2021 ambulatory Reddy Brandt Other [facility] Other Start: 11-02-2021 Postop follow up vis it related to original px Reddybryan Brandt [facility] Start: 11-02-2021 End: 11-02-2021 Patient encounter procedure DO Deon Braxton Work Phone: [facility]-Pre-Surgical Testing Start: 11-01-2021 End: 11-01-2021 Emergency department patient visit DO Deon Braxton Work Phone: [facility]-Emergency Room Start: 11-01-2021 End: 11-01-2021 ambulatory Reddy Brandt Other [facility] Other Start: 11-01-2021 Telephone encounter Reddy MOE G [facility] Start: 10-31-2021 End: 10-31-2021 ambulatory Reddy Brandt Other [place] Other Start: 10-31-2021 Postop follow up vis it related to original px Reddybryan Brandt [facility] Start: 10-21-2021 End: 10-27-2021 Evaluation and management of inpatient DO Deon Braxton Work Phone: [facility] Start: 10-18-2021 End: 10-21-2021 Evaluation and management of inpatient DO Deon Braxton Work Phone: [facility] Start: 10-14-2021 End: 10-14-2021 Patient encounter procedure DO Deon Braxton Work Phone: [facility]-Pre-Surgical Testing Start: 10-12-2021 End: 10-12-2021 ambulatory Reddy Brandt Other [facility] [employer] Other Start: 10-12-2021 Office outpatient vi sit 25 minutes Reddy ROSENBERG [facility] Start: 10-10-2021 End: 10-10-2021 Patient encounter procedure DO Deon Braxton Work Phone: [facility]-MRI [facility] Start: 10-06-2021 End: 10-06-2021 Patient encounter procedure DO Deon Braxton Work Phone: [facility]-Lab [facility] Start: 10-06-2021 End: 10-06-2021 ambulatory Reddy Brandt Other [facility] [employer] Other Start: 10-06-2021 Office outpatient vi sit 25 minutes Pako ROSENBERG [facility] Start: 10-06-2021 Telephone encounter [facility] Start: 09-29-2021 End: 09-29-2021 Patient encounter procedure DO Deon Braxton Work Phone: [facility]-Pacemaker Check Start: 09-26-2021 End: 09-26-2021 ambulatory Reddy Brandt Other [place] [employer] Other Start: 09-26-2021 Telephone encounter Reddy Gil [facility] Start: 09-21-2021 End: 09-21-2021 Patient encounter procedure DO Deon Braxton Work Phone: [facility]-X[facility] Start: 09-21-2021 ambulatory SALINA LEE Faci lity:[facility] Start: 09-09-2021 End: 09-10-[address] DEON BRAXTON Facility:[facility] Start: 09-09-2021 End: 09-10-2021 ambulatory SALINA Aaron CHAYOARIS Facility:[facility] Start: 09-08-2021 End: 09-08-2021 ambulatory Pako Aguilar Other [facility] [employer] Other Start: 09-08-2021 Office outpatient vi sit [...] LEE Facility:[facility] Start: 03-10-2021 End: 03-11-2021 ambulatory ASLINA LEE Facility:[facility] Start: 03-03-2021 End: 03-04-2021 ambulatory SALINA LEE Facility:[facility] Start: 02-28-2021 ambulatory DEON edmonds:[facility] Start: 02-23-2021 End: 02-24-2021 ambulatory SALINA LEE Facility:[facility] Start: 02-22-2021 ambulatory DEON BRAXTON Faci lity:[facility] Start: 02-17-2021 End: 02-18-2021 ambulatory SALINA LEE Facility:[facility] Start: 02-09-2021 Encounter for prepro cedural laboratory examination SALINA LEE [facility] Start: 02-08-2021 End: 02-12-2021 Evaluation [...] Start: 01-11-2021 End: 01-11-2021 ambulatory DEON BRAXTON Facility:[facility] Start: 01-10-2021 End: 01-11-2021 ambulatory DEON BRAXTON Facility:[facility] Start: 12-08-2020 End: 12-09-[address] DEON [...] w/le ast 12 lds w/i&r Terry Leo PST MANA[employer]AQS Work Phone: Start: 03-22-2023 Adult depression scr eening assessment Terry Lock PST [employer]AQS Work Phone: Start: 12-29-2022 Diabetic retinal eye exam Terry Leo PST [employer] Work Phone: Start: 10-26-2022 Microalbumin [Mass/v olume] in Urine by Test strip Terry Leo PST [employer]S Work Phone: Start: 11-29-2021 Incision and drainag [...] Other Investigation of transfusion reaction DO Deon CordovaAppointedd Phone: SARS-CoV-2, Influenz a & RSV (PCR) DO Deon [email or web address] Work Phone: Plan of Treatment Date Care Activity Detail Author Start: 01-13-2026 DTaP,Tdap and Td Vaccines (2 - Td or Tdap) DTaP,Tdap and Td Vaccines (2 - Td or Tdap) [facility] Start: 05-24-2024 Glaucoma screening Diabetic Ophthalmology Exam [facility] Start: 04-12-2024 Adult BMI Screening Adult BMI Screening [facility] [employer] Start: 04-12-2024 Tobacco Screening Tobacco Screening [facility] [employer] Start: 03-22-2024 Depression Screening Depression Screening [facility] Start: 03-22-2024 Fall Risk Screening Fall Risk Screening [facility] Start: 12-30-2023 Glaucoma screening [facility] Start: 11-29-2023 End: 11-29-2023 Patient encounter procedure 11/29/2023 9:00 AM EDT Office Visit [facility] - [facility] [address] [place] [address] [facility] Start: 11-24-2023 Medicare Annual Wellness Visit Medicare Annual Wellness Visit [facility] Start: 10-27-2023 Diabetic foot examination Diabetic Foot Exam [facility] Start: 10-27-2023 Urine screening for protein Urine Microalbumin [facility] Start: 11-29-2021 [facility] Start: 11-29-2021 [facility] Start: 11-29-2021 Incision and drainage of lower extremity OR I&D Exploration Upper/Lower Extremity (Right) [facility] Start: 11-29-2021 End: 11-29-2021 Admission to same day surgery center Below knee amputation [facility] [place] Start: 11-03-2021 [facility] Start: 11-03-2021 [facility] Start: 11-03-2021 Amputation of right lower limb OR Leg Amputation Above/Below (Right) [facility] Start: 11-03-2021 End: 11-03-2021 Admission to same day surgery center Departed Surgical Day Care [facility] [place] Start: 11-02-2021 End: 11-02-2021 Patient encounter procedure Departed Clinical [facility]-Pre-Surgical Testing Start: 11-01-2021 End: 11-01-2021 Emergency department patient visit Departed Emergency [facility]-Emergency Room Start: 10-27-2021 [facility] Work Phone: Start: 10-21-2021 Hospital admission [facility] Work Phone: Start: 10-21-2021 Referral to clinical employee benefits director [facility] Work Phone: Start: 10-21-2021 [facility] Work Phone: Start: 10-18-2021 Referral to clinical employee benefits director [facility] Work Phone: Start: 10-18-2021 Detachment at Right Lower Leg, Mid, Open Approach Detachment at Right Lower Leg, Mid, Open Approach [facility] Start: 10-17-2021 [facility] Work Phone: Start: 10-14-1975 Adult BMI Follow Up Plan Adult BMI Follow Up Plan [facility] Patient Education [facility] Work Phone: Patient referral [facility] Work Phone: SARS-CoV-2 (COVID-19 ) N gene [Presence] in Respiratory specimen by MEREDITH with probe detection [facility] Work Phone: Immunizations Immunization Date Immunization Notes Care Provider Fa cili 03-12-2023 Covid-19,mrna, Lnp-s , Pf, 50mcg/0.5ml 12+ Terry Lock PST MANAGER-SPEECH CLINICIAN Work Phone: [facility] 03-12-2023 Influenza Vaccine, Quadrivalent, Adjuvanted Terry Lock PST MANAGER-SPEECH CLINICIAN Work Phone: [facility] 03-12-2023 RSV, mAb, nirsevimab-alip, 1 mL, to 24 months Terry Lock PST MANAGER-SPEECH CLINICIAN Work Phone: [facility] 03-12-2023 RSV, recombinant, protein subunit RSVpreF, adjuvant reconstituted, 0.5 mL, PF Terry Lock PST MANAGER-SPEECH CLINICIAN Work Phone: [facility] 06-14-2022 zoster vaccine recombinant Terry Lock PST MANAGER-SPEECH CLINICIAN Work Phone: [facility] 04-15-2022 Covid-19, Mrna, Lnp- s, Bivalent, Pf, 50mcg/0.5ml or 25mcg/0.25ml Terry Lock PST MANAGER-SPEECH CLINICIAN Work Phone: [facility] 04-15-2022 zoster vaccine recombinant Terry Lock PST MANAGER-SPEECH CLINICIAN Work Phone: [facility] 04-11-2022 Influenza, High-dose , Quadrivalent Terry Lock PST MANAGER-SPEECH CLINICIAN Work Phone: [facility] 03-01-2021 COVID-19 mRNA-1273 (Moderna) DO Deon Braxton Work Phone: [facility] 03-01-2021 Seasonal, quadrivale nt, recombinant, injectable influenza vaccine, preservative free Terry Lock PST MANAGER-SPEECH CLINICIAN Work Phone: [facility] 06-25-2020 COVID-19 mRNA-1273 (Moderna) DO Deon Braxton Work Phone: [facility] 05-28-2020 COVID-19, mRNA, LNP- S, PF, 100mcg/0.5mL Dose Terry Leo PST MANAGER-SPEECH CLINICIAN Work Phone: [facility] 05-25-2020 COVID-19, mRNA, LNP- S, PF, 100mcg/0.5mL Dose Terry Leo PST MANAGER-SPEECH CLINICIAN Work Phone: [facility] 01-14-2020 influenza, seasonal, injectable Terry Lock PST MANAGER-SPEECH CLINICIAN Work Phone: [facility] 12-30-2019 influenza, injectabl e, quadrivalent, preservative free Terry Lock PST MANAGER-SPEECH CLINICIAN Work Phone: [facility] 04-07-2019 Influenza, injectabl e, Madin [place] Canine Kidney, preservative free, quadrivalent Terry Lock PST MANAGER-SPEECH CLINICIAN Work Phone: [facility] 12-31-2018 pneumococcal conjuga te vaccine, 13 valent Terry Lock PST MANAGER-SPEECH CLINICIAN Work Phone: [facility] 01-23-2018 influenza, injectabl e, quadrivalent, contains preservative Terry Lock PST MANAGER-SPEECH CLINICIAN Work Phone: [facility] 01-23-2018 influenza, injectabl e, quadrivalent, preservative free Terry Lock PST MANAGER-SPEECH CLINICIAN Work Phone: [facility] 02-05-2017 influenza, injectabl e, quadrivalent, preservative free Terry Lock PST MANAGER-SPEECH CLINICIAN Work Phone: [facility] 02-05-2017 pneumococcal conjuga te vaccine, 13 valent Terry Lock PST MANAGER-SPEECH CLINICIAN Work Phone: [facility] 01-14-2017 influenza, injectabl e, quadrivalent, contains preservative Terry Lock PST MANAGER-SPEECH CLINICIAN Work Phone: [facility] 01-14-2016 tetanus toxoid, redu joseph diphtheria toxoid, and acellular pertussis vaccine, adsorbed Terry Lock PST MANAGER-SPEECH CLINICIAN Work Phone: [facility] 01-02-2016 influenza virus vacc ine, unspecified formulation Terry Lock PST MANAGER-SPEECH CLINICIAN Work Phone: [facility] 08-13-2015 zoster vaccine, live Teryr Lock PST MANAGER-SPEECH CLINICIAN Work Phone: [facility] 12-22-2014 influenza, seasonal, injectable, preservative free Terry Lock PST MANAGER-SPEECH CLINICIAN Work Phone: [facility] 01-26-2014 pneumococcal conjuga te vaccine, 13 valent Terry Lock PST MANAGER-SPEECH CLINICIAN Work Phone: [facility] 01-12-2014 influenza, seasonal, injectable Terry Lock PST MANAGER-SPEECH CLINICIAN Work Phone: [facility] 01-12-2014 Seasonal trivalent influenza vaccine, adjuvanted, preservative free Terry Lock PST MANAGER-SPEECH CLINICIAN Work Phone: [facility] 09-17-2012 pneumococcal polysaccharide vaccine, 23 valent Terry Lock PST MANAGER-SPEECH CLINICIAN Work Phone: [facility] 09-17-2012 pneumococcal vaccine , unspecified formulation Terry Lock PST MANAGER-SPEECH CLINICIAN Work Phone: [facility] Payers Date Payer Category Payer Medicare ANTHEM MEDICARE [facility] [employer] [id number] 2023-[facility] [phone] [address] [place] [address] [id number] 2023 Medicare [id number] 2022 Self-pay [id number] 2022 Medicare [id number] 2021 Unknown 1957 Unknown [id number] 2.16.840.1.862402.3.579.2.196 1957 Unknown [id number] 2.16.840.1.772905.3.579.2.196 1957 Unknown [id number] 2.16.840.1.552931.3.579.2.196 1957 Unknown [id number] 2.16.840.1.288797.3.579.2.196 1957 Unknown [id number] 2.16.840.1.632223.3.579.2.593 1957 Unknown [id number] 2.16.840.1.835852.3.579.2.593 1957 Unknown [id number] 2.16.840.1.811882.3.579.2.593 1957 Unknown [id number] 2.16.840.1.402584.3.579.2.593 1957 Unknown [id number] 2.16.840.1.122524.3.579.2.593 1957 Unknown [id number] 2.16.840.1.777330.3.579.2.593 1957 Unknown [id number] 2.16.840.1.083168.3.579.2.593 1957 Unknown [id number] 2.16.840.1.415205.3.579.2.593 1957 Unknown [id number] 2.16.840.1.337067.3.579.2.593 1957 Unknown [id number] 2.16.840.1.814518.3.579.2.593 1957 Unknown [id number] 2.16.840.1.091092.3.579.2.593 1957 Unknown [id number] 2.16.840.1.887143.3.579.2.593 1957 Unknown [id number] 2.16.840.1.120293.3.579.2.593 1957 Unknown [id number] 2.16.840.1.307946.3.579.2.593 1957 Unknown [id number] 2.16.840.1.047193.3.579.2.593 1957 Unknown [id number] 2.16.840.1.016665.3.579.2.59 1957 Unknown [id number] 2.16.840.1.899739.3.579.2.593 1957 Unknown [id number] 2.16.840.1.105046.3.579.2. 1957 Unknown [id number] 2.16.840.1.237437.3.579.2.593 1957 Unknown [id number] 2.16.840.1.283436.3.579.2.3 1957 Unknown [id number] 2.16.840.1.067711.3.579.2.593 1957 Unknown [id number] 2.16.840.1.858269.3.579.2.59 1957 Unknown [id number] 2.16.840.1.661624.3.579.2.593 1957 Unknown [id number] 2.16.840.1.379415.3.579.2.593 1957 Unknown [id number] 2.16.840.1.760952.3.579.2.593 1957 Unknown [id number] 2.16.840.1.143920.3.579.2.593 1957 Unknown [id number] 2.16.840.1.250959.3.579.2.593 1957 Unknown [id number] 2.16.840.1.705827.3.579.2.593 1957 Unknown [id number] 2.16.840.1.781089.3.579.2.593 1957 Unknown [id number] 2.16.840.1.587094.3.579.2.593 1957 Unknown [id number] 2.16.840.1.948394.3.579.2.59 1957 Unknown [id number] 2.16.840.1.268463.3.579.2.593 1957 Unknown [id number] 2.16.840.1.483598.3.579.2. 1957 Unknown [id number] 2.16.840.1.920699.3.579.2.593 1957 Unknown [id number] 2.16.840.1.726552.3.579.2.593 1957 Unknown [id number] 2.16.840.1.720258.3.579.2.593 1957 Unknown [id number] 2.16.840.1.150745.3.579.2.593 1957 Unknown [id number] 2.16.840.1.694682.3.579.2.593 1957 Unknown [id number] 2.16.840.1.766479.3.579.2.593 1957 Unknown [id number] 2.16.840.1.139166.3.579.2.593 1957 Unknown [id number] 2.16.840.1.427830.3.579.2.59 1957 Unknown [id number] 2.16.840.1.661574.3.579.2.593 1957 Unknown [id number] 2.16.840.1.373620.3.579.2.593 1957 Unknown [id number] 2.16.840.1.925830.3.579.2.593 1957 Unknown [id number] 2.16.840.1.977502.3.579.2.59 1957 Unknown [id number] 2.16.840.1.665277.3.579.2.59 1957 Unknown [id number] 2.16.840.1.012734.3.579.2.59 1957 Unknown [id number] 2.16.840.1.569183.3.579.2.59 1957 Unknown [id number] 2.16.840.1.496877.3.579.2.59 1957 Unknown [id number] 2.16.840.1.739702.3.579.2.59 1957 Unknown [id number] 2.16.840.1.834829.3.579.2.593 1957 Unknown [id number] 2.16.840.1.159718.3.579.2.59 1957 Unknown [id number] 2.16.840.1.304918.3.579.2.593 1957 Unknown [id number] 2.16.840.1.440476.3.579.2.593 1957 Unknown [id number] 2.16.840.1.330590.3.579.2.59 1957 Unknown [id number] 2.16.840.1.520596.3.579.2.59 1957 Unknown [id number] 2.16.840.1.913704.3.579.2.593 1957 Unknown [id number] 2.16.840.1.537111.3.579.2.593 1957 Unknown [id number] 2.16.840.1.961034.3.579.2.128 1957 Unknown [id number] 2.16.840.1.346963.3.579.2.125 1957 Unknown [id number] 2.16.840.1.117284.3.579.2.1258 1957 Unknown [id number] 2.16.840.1.381539.3.579.2.1258 1957 Unknown [id number] 2.16.840.1.440933.3.579.2.1258 1957 Unknown [id number] 2.16.840.1.704529.3.579.2.1258 1957 Unknown [id number] 2.16.840.1.412412.3.579.2.1258 1957 Unknown [id number] 2.16.840.1.357033.3.579.2.1258 1957 Unknown [id number] 2.16.840.1.253919.3.579.2.1285 1957 Unknown [id number] 2.16.840.1.477687.3.579.2.1285 1957 Unknown [id number] 2.16.840.1.149633.3.579.2.1285 1957 Unknown [id number] 2.16.840.1.643359.3.579.2.1285 1957 Unknown [id number] 2.16.840.1.402290.3.579.2.1285 1957 Unknown [id number] 2.16.840.1.115381.3.579.2.1286 1957 Unknown [id number] 2.16.840.1.463332.3.579.2.1286 1957 Unknown [id number] 2.16.840.1.178828.3.579.2.1286 1957 Unknown [id number] 2.16.840.1.639930.3.579.2.1286 Medicare [id number] 2.16840.1.822180.19 Unknown O [id number] Unknown [id number] Unknown [id number] 2.16.840.1.265395.3.579.2.531 Unknown [id number] 2..840.1.762351.3.579.2.531 Social History Date Type Detail Facility Unknown if ever smoked [facility] Other Start: 04-11-2022 End: 04-12-2023 Sex Assigned At [facility]stem Start: 10-19-2021 End: 01-18-2022 Tobacco smoking status NHIS Never smoked tobacco (finding) [facility] Start: 1955 Sex Assigned At Male [facility] Start: 01-18-2022 Tobacco use and exposure Smokeless tobacco non-user [facility] Start: 04-12-2023 Alcohol intake Current drinker of alcohol (finding) [facility] Start: 04-11-2022 End: 04-12-2023 History of Social function [facility] Do you belong to any clubs or organizations such as mandaeism groups, unions, fraternal or athletic groups, or school groups? No [facility] Are you now , , , , never or living with a partner? [facility] How often to you hav e a drink containing alcohol? 2-4 times a month [facility] How many standard dr inks containing alcohol do you have on a typical day? 1 or 2 [facility] How often do you hav e 6 or more drinks on 1 occasion? Never [facility] How hard is it for y ou to pay for the very basics like food, housing, medical care, and heating Somewhat hard [facility] Adolescent depressio n screening assessment 0 [facility] Do you feel stress - tense, restless, nervous, or anxious, or unable to sleep at night because your mind is troubled all the time - these days [OSQ] Not at all [facility] Start: 04-11-2022 Education [facility] Start: 09-10-2019 Alcohol Comment social [facility] Start: 1955 Sex Assigned At Not on file [facility] Medical Equipment Procedure Code Equipment Code Equipment Origin al Text Equipment Identifier Dates Gft Hmn Tiss 250 mg Amniofill - [id number] - [id number] Start: 12-27-2018 Gft Sft Tis Matr istem - [id number] - [id number] Start: 01-27-2019 Tiss Grafix Prim e 3x4cm - [id number] - [id number] Start: 09-15-2019 Evera Mri Xt Vr Defibrillator [id number] Start: 07-13-2015 Sprint Quattro S ecure Mri [id number] Start: 07-13-2015 Tissue Epifix 2x 4 Cm - [id number] - [id number] Start: 12-27-2018 USE DIRECTED FOUR TIMES DAILY [id number] Start: 08-07-2022 Goals Date Patient Goal Desired Activity /State Personal health goal Comment on above: Formatting of this n ote might be different from the original. Evaluation of progress towards goal: Safe dc transition from hospital to home with family support. Resume with [facility]. Personal health goal Comment on above: Formatting of this n ote might be different from the original. Evaluation of progress towards goal: Pt plans to discharge home with [facility]. Functional Status Date Assessment Result Facility 10-27-2021 Functional status Patient is Pro gressing Toward Baseline [facility] Work Phone: 10-21-2021 Functional status Patient is Pro gressing Toward Baseline [facility] Work Phone: 10-18-2021 Functional status Patient at Baseline [facility] Work Phone: Mental Status Date Assessment Result Facility 10-27-2021 Cognitive function Cognitive Sta tus Patient at Baseline [facility] Work Phone: 10-21-2021 Cognitive function Cognitive Sta tus Patient is Progressing Toward Baseline [facility] Work Phone: 10-18-2021 Cognitive function Cognitive Sta tus Patient at Baseline [facility] Work Phone: Clinical Notes 01-05-2021 to 04-12-2023 Terry Lock, PST MANAGER-[facility] - 04/12/2023 11:30 AM Sue High [...] arthropathy, with long-term current use of insulin ([facility]) Chronic systolic congestive heart failure ([facility]) Coronary artery disease involving prairie band coronary artery of prairie band heart without angina pectoris Hearing loss Personal history of colonic polyps Colon polyps Diverticulosis large intestine w/o perforation or abscess w/o bleeding Chronic obstructive pulmonary disease ([facility]) 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 Gastroesophageal reflux disease with esophagitis without hemorrhage Stage 3b chronic kidney disease ([facility]) Subepithelial esophageal mass Sarcoidosis Diabetic retinopathy ([facility]) Obstructive sleep apnea syndrome Diabetic neuropathy ([facility]) Bilateral sensorineural hearing loss Unilateral complete AKA, right ([facility]) Allergies Allergen Reactions Doxycycline Other reaction(s): Chest Pain Levofloxacin Other reaction(s): Chest Pain Chlorpheniramine Dextromethorphan Hbr Itching Inrdzxsvp-Ll-Gabfxrpjibwae Guaifenesin Other reaction(s): Itching of skin Hydrocodone [...] morning. 90 tablet 1 flash glucose sensor ([employer] LELO 2 SENSOR) kit CHANGE EVERY 2 [...] involving left anterior descending (LAD) coronary artery ([facility]) 05/28/2015 Hyperlipidemia Interstitial lung disease ([facility]) Left ventricular failure ([facility]) MRSA (methicillin resistant staph aureus) culture positive Peptic ulceration Presence of automatic (implantable) cardiac defibrillator ST elevation (STEMI) myocardial infarction ([facility]) 2015 x 5 stents Stage 3b chronic kidney disease ([facility]) 04/22/2020 Unilateral complete AKA, right ([facility]) 03/31/2022 No data recorded No data recorded No data recorded Past Surgical History: Procedure Laterality Date ANKLE LIGAMENT RECONSTRUCTION Right 2020 APPLICATION AMNIOFILL Right 12/27/2018 Performed by Arlen Olguin DPM at [facility] APPLICATION WOUND VAC ( NOT done) Right 01/27/2019 Performed by Terry Hector DPM at [facility] CARDIAC DEFIBRILLATOR PLACEMENT 07/13/2015 [employer] COLONOSCOPY N/A 04/07/2020 Performed by Deon Braxton DO at [facility] DEBRIDEMENT FOOT EXCISION RT FOOT ULCER, APPLICATION BIOLOGIC SKIN GRAFT RT FOOT, APPLICATION OF WOUND VAC RT FOOT Right 01/27/2019 Performed by Terry Hector DPM at [facility] DEBRIDEMENT FOOT WITH APPLICATION OF GRAFIX Right 09/15/2019 Performed by Terry Hector DPM at [facility] ESOPHAGOGASTRODUODENOSCOPY N/A 05/19/2020 Performed by Deon Braxton DO at [facility] EXCISION 5TH METATARSAL Right 12/30/2018 Performed by Terry Hector DPM at [facility] FINGER SURGERY FOOT SURGERY 07/2020 [facility] Bilateral LAPAROSCOPIC CHOLECYSTECTOMY N/A 06/21/2020 Performed by Deon Justice MD at [facility] LENGTHENING TENDON RIGHT, PLANTAR FASCIOTOMY Right 09/15/2019 Performed by Terry Hector DPM at [facility] SKIN GRAFT LOWER EXTREMITY (APPLICATION OF BIOLOGIC SKIN GRAFT RT FOOT Right 01/27/2019 Performed by Terry Hector DPM at [facility] Family History Problem Relation Age [...] min Stress: No Stress Concern Present (04/11/2022) [employer]ational [employer] - Occupational Stress Questionnaire Feeling of Stress : Not at all Social Connections: Moderately Integrated (04/11/2022) Social Connection and Isolation Panel [NHANES] Frequency of Communication with Friends and Family: Twice a week Frequency of Social Gatherings with Friends and Family: Twice a week Attends Holiness Services: 1 to 4 times per year [...] Verbalized understanding 2. Coronary artery disease involving prairie band coronary artery of prairie band heart without angina pectoris -aspirin, statin, beta-doreen [...] Referring Physician: Deon Braxton DO [address] [place] [address] FANNY Owens 04/12/23 1145 Office note faxed to Dr Lee for clearance documented in this encounter [facility] 12-05-2022 Evaluation note Encounter Date Diagnosis Assessment Notes Dec, Charcot foot due to diabetes mellitus (ICD-10 - E11.610) Dec, Status post transmetatarsal amputation of left foot (ICD-10 - Z89.432) as above, RX written. Dec, Hx of right BKA (ICD-10 - Z89.511) [facility] Other 07-06-2023 Evaluation note* Encounter Date Diagnosis [...] months. Sep, Peripheral polyneuropathy (ICD-10 - G62.9) [facility] Other 05-03-2023 Evaluation note* Encounter Date Diagnosis [...] elsewhere classified, subsequent encounter (ICD-10 - T81.31XD) [facility] Other 03-03-2023 Evaluation note* Encounter Date Diagnosis [...] this time. Patient is following up at [facility] for changes to prosthetic. I did recommend use of a cane to help offload some weight which may reduce his pain. Patient voiced understanding and states no further questions at this time. May, Other specified postprocedural states (ICD-10 - Z98.890) May, Postoperative wound dehiscence, initial encounter (ICD-10 - T81.31XA) [facility] Other 01-27-2023 Evaluation note* Encounter Date Diagnosis [...] wound dehiscence, initial encounter (ICD-10 - T81.31XA) [facility] 01-11-2023 Evaluation note* Encounter Date Diagnosis [...] wound dehiscence, initial encounter (ICD-10 - T81.31XA) [facility] 12-14-2022 Evaluation note* Encounter Date Diagnosis [...] wound dehiscence, initial encounter (ICD-10 - T81.31XA) [facility] 11-08-2022 Evaluation note* Encounter Date Diagnosis Assessment Notes Treatment Notes Treatment Clinical Notes Jan, Right below-knee amputee (ICD-10 - Z89.511) Proceed with K3 level, transtibial prosthesis, preparatory. Diligent monitoring of residual limb. Stop wearing prosthesis immediately if wound should worsen, develop erythema, increased pain, etc. Wearing schedule. [facility] 11-04-2022 Evaluation note* Encounter Date Diagnosis [...] wound dehiscence, initial encounter (ICD-10 - T81.31XA) [facility] 10-21-2022 Evaluation note* Encounter Date Diagnosis [...] wound dehiscence, initial encounter (ICD-10 - T81.31XA) [facility] 10-07-2022 Evaluation note* Encounter Date Diagnosis [...] wound dehiscence, initial encounter (ICD-10 - T81.31XA) [facility] 09-23-2022 Evaluation note* Encounter Date Diagnosis [...] wound dehiscence, initial encounter (ICD-10 - T81.31XA) [facility] 09-14-2022 Evaluation note* Encounter Date Diagnosis [...] wound dehiscence, initial encounter (ICD-10 - T81.31XA) [facility] 09-09-2022 Evaluation note* Encounter Date Diagnosis [...] infectious disease. Faxed wound center information to [phone] and left a voicemail. Dec, Other specified postprocedural states (ICD-10 - Z98.890) Dec, Postoperative wound dehiscence, initial encounter (ICD-10 - T81.31XA) [facility] Other 08-30-2022 History and physical note Author Reddy Brandt [facility] November 29, 2021 11:49am Note Date/Time November 29, 2021 11 :32am [facility] [address] [place] [address] Orthopedic Surgery H&P Signed Patient: Anai Goodman MR#: [id number] : 1955 Acct:[id number] Age/Sex: 66 / M Adm Date: 2 Loc: CO Room: Type: [facility] Attending Dr: Reddy Brandt DO Copies [...] poor healing. 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 I have advised to follow all post-operative instructions in order to obtain the best outcome. Informed consent has been verbally affirmed and signed as indicated. Documented By: Reddy Brandt DO 11/29/21 1129 Signed By: <Electronically signed by Reddy Brandt DO> 11/29/21 1144 [facility] Work Phone: 1(254) 942-628708-29-2022 Evaluation note* Encounter Date Diagnosis Assessment Notes [...] remova l of sutures (ICD-10 - Z48.02) [facility] Other 08-03-2022 Evaluation note* Encounter Date Diagnosis [...] was in understanding and wishes to proceed. [facility] Other 08-01-2022 Evaluation note* Encounter Date Diagnosis [...] move forward with treatment at this time. [facility] 07-27-2022 Progress note Author Ghanshyam Kaye [facility] October 25, 2021 11:37pm Note Date/Time October 25, 2021 11:3 7pm [facility] [address] [place] [address] Physiatry(Rehab) Progress Note Signed Patient: Anai Goodman MR#: [id number] : 1955 Acct:[id number] Age/Sex: 66 / M Adm Date: 2 Loc: Room: 8V4625-8 Type : ADM IN Attending Dr: Ghanshyam Kaye MD Copies to: ~ Date of Service: 10/25/2021 Subjective Subjective Narrative: Mr. Goodman is a 66 year old male who is admitted to [facility] inpatient rehab for strengthening s/p planned [...] % (Auto) 69.1 Lymph % (Auto) 9.4 [place] % (Auto) 14.5 Eos % (Auto) 6.7 Baso % (Auto) 0.3 Neut # (Auto) 4.0 Lymph # (Auto) 0.5 L [place] # (Auto) 0.8 Eos # (Auto) 0.4 [...] MPV Neut % (Auto) Lymph % (Auto) [place] % (Auto) Eos % (Auto) Baso % (Auto) Neut # (Auto) Lymph # (Auto) [place] # (Auto) Eos # (Auto) Baso # [...] mg 10/21/21 17:51 Bisacodyl 10 Mg Supp.Rect MN 10/21/22 17:50 DAILY PRN Constipation Bumetanide 1 [...] 17:51 Docusate Enema 283 Mg/5 Ml Enema MN 10/21/22 17:50 DAILY PRN Constipation Insulin Aspart 0 units 10/21/21 17:00 10/25/21 20:27 Insulin Aspart 300 Units/3 Ml Insuln.Pen SUBCUT 10/21/22 16:59 7 units TID.WM.HS CB Administration Protocol Insulin Aspart 0 units 10/21/21 17:00 10/25/21 20:30 Insulin Aspart 300 Units/3 Ml Insuln.Pen SUBCUT 10/21/22 16:59 Not Given TID.WITH.MEALS.[facility] Protocol Insulin Detemir 40 units 10/21/21 [...] greater than 25 minutes for services, including qmwg-gb-qozl encounter with the patient, discussion of the case, plan of care, and exam; and zwjoobi-dw-qhmo activities, such as reviewing pertinent python consultant documentation, recent therapy notes, laboratory and radiology studies, and discussionof case with care team including nursing, child support case officer, and therapists. More than 50 % of time was spent on patient/family counseling or coordination ofcare. Documented By: Ghanshyam Kaye MD 10/25/212333 Signed By: <Electronically signed by Ghanshyam Kaye MD> 10/25/212336 [facility] Work Phone: 1(240) 903-409707-26-2022 Progress note Author Ghanshyam Kaye [facility] October 25, 2021 10:20am Note Date/Time October 23, 2021 11:5 7am [facility] [address] [place] [address] Physiatry(Rehab) Progress Note Signed Patient: Anai Goodman MR#: [id number] : 1955 Acct:[id number] Age/Sex: 66 / M Adm Date: 2 Loc: Room: [address] [place] [address] Type : ADM IN Attending Dr: Ghanshyam Kaye MD Copies to: ~ <Chante Narayan APRN - Last Filed: 10/23/21 11:57> Date of Service: 10/23/2021 Subjective <Chante Narayan APRN - Last Filed: 10/23/21 11:57> Subjective Narrative: Mr. Goodman is a 66 year old male who is admitted to [facility] inpatient rehab for strengthening s/p planned [...] Asking about discharge, wants to talk to child support case officer about insurance coverage, but thinks he would [...] complaints, except as documented Exam <Chante Narayan, PST MANAGER - Last Filed: 10/23/21 11:57> Physical Exam [...] Tablet PO 10/21/22 21:59 100 mg QHS [facility] Administration Atorvastatin Calcium 80 mg 10/22/21 09:00 10/23/21 09:07 Atorvastatin 80 Mg Tablet PO 10/22/22 08:59 80 mg QAM CB Administration Bisacodyl 10 mg 10/21/21 17:51 Bisacodyl 10 Mg Supp.Rect MN 10/21/22 17:50 DAILY PRN Constipation Bumetanide 2 mg 10/21/21 21:00 10/23/21 09:07 Bumetanide 2 Mg Tablet PO 10/21/22 20:59 2 mg BID CB Administration Carvedilol 6.25 mg 10/21/21 21:00 10/23/21 09:07 Carvedilol 6.25 Mg Tablet PO 10/21/22 20:59 6.25 mg BID [facility] Administration Docusate Sodium 100 mg 10/21/21 17:51 Docusate 100 Mg Capsule PO 10/21/22 17:50 BID PRN Constipation Docusate Sodium 283 mg 10/21/21 17:51 Docusate Enema 283 Mg/5 Ml Enema MN 10/21/22 17:50 DAILY PRN Constipation Insulin Aspart 0 units 10/21/21 17:00 10/23/21 09:05 Insulin Aspart 300 Units/3 Ml Insuln.Pen SUBCUT 10/21/22 16:59 1 units TID.WM.[facility] Administration Protocol Insulin Aspart 0 units 10/21/21 17:00 10/23/21 09:06 Insulin Aspart 300 Units/3 Ml Insuln.Pen SUBCUT 10/21/22 16:59 4 units TID.WITH.MEALS.[facility] Administration Protocol Insulin Detemir 40 units 10/21/21 22:00 10/22/21 20:27 Insulin Detemir 300 Units/3 Ml Insuln.Pen SUBCUT 10/21/22 21:59 40 units QHS [facility] Administration Lactulose 30 gm 10/21/21 17:51 [...] Tablet PO 10/22/22 08:59 25 mg QAM [facility] Administration Vitamin D 250 mcg 10/21/21 21:00 10/23/21 09:07 Cholecalciferol 125 Mcg (5,000 Units) Tablet PO 10/21/22 20:59 250 mcg BID CB Administration Assessment/Plan <Chante Narayan, PST MANAGER - Last Filed: 10/23/21 11:57> Assessment/Plan [...] greater than 15 minutes for services, including hnet-kj-hokr encounter with the patient, discussion of the case, plan of care, and exam; and xxroucp-ad-ljft activities, such as reviewing pertinent python consultant documentation, recent therapy notes, laboratory and radiology studies, and discussion of case with care team including physician, nursing, child support case officer, and therapists. More than 50 % of [...] the chart, including currentorders, allied health and python consultant notes, labs/imaging and plan of care as above. Documented By: Chante Nraayan APRN 10/23/21 1 150 Signed By: <Electronically signed by KRUNAL Narayan> 10/23/21 1157 <Electronically signed by Ghanshyam Kaye MD> 10/25/21 1020 [facility] Work Phone: 1(215) 257-427407-26-2022 History and physical note Author Ghanshyam Kaye [facility] October 25, 2021 9:36am Note Date/Time October 22, 2021 9:59 am [facility] [address] [place] [address] Physiatry (Rehab) H&P Signed Patient: Anai Goodman MR#: [id number] : 1955 Acct:[id number] Age/Sex: 66 / M Adm Date: 2 Loc: Room: [address] [place] [address] Type : ADM IN Attending Dr: Ghanshyam Kaye MD Copies to: KRUNAL Mendez DO Joseph Riley, MD~ <Chante Narayan APRN - Last Filed: 10/22/21 10:24> Date of Service: 10/22/2021 HPI <Chante Narayan APRN - Last Filed: 10/22/21 10:24> The patient was seen and examined on: 10/21/21 History of Present Illness: Mr. Goodman is a 66 year old male who is admitted to [facility] inpatient rehab for strengthening s/p planned [...] with one-step to enter. PMFSH <Chante Narayan, PST MANAGER - Last Filed: 10/22/21 10:24> Vaccinated for [...] Bisacodyl (Bisacodyl 10 Mg Supp.Rect) 10 mg MN DAILY PRN PRN Reason: Constipation Stop: 10/21/22 [...] Enema 283 Mg/5 Ml Enema) 283 mg MN DAILY PRN PRN Reason: Constipation Stop: 10/21/22 17:50 Insulin Aspart (Insulin Aspart 300 Units/3 Ml Insuln.Pen) 0 units SUBCUT TID.WM.[facility]; Protocol Stop: 10/21/22 16:59 Last Admin: 10/22/21 08:01 Dose: 1 units Insulin Aspart (Insulin Aspart 300 Units/3 Ml Insuln.Pen) 0 units SUBCUT TID.WITH.MEALS.[facility]; Protocol Stop: 10/21/22 16:59 Last Admin: 10/22/21 08:01 Dose: 4 units Insulin Detemir (Insulin Detemir 300 Units/3 Ml Insuln.Pen) [facility] Stop: 10/21/22 21:59 Last Admin: 10/21/21 22:02 Dose: 40 units Lactulose (Lactulose 20 Gm/30 Ml Udc) 30 gm PO DAILY PRN PRN Reason: Constipation Stop: 10/21/22 17:50 Losartan Potassium (Losartan 25 Mg Tablet) 25 mg PO QAM [facility] Stop: 10/22/22 08:59 Last Admin: 10/22/21 08:05 Dose: 25 mg Magnesium Oxide (Magnesium Oxide 400 Mg Tablet) 400 mg PO [facility] Stop: 10/22/22 08:59 Last Admin: 10/22/21 08:05 Dose: 400 mg Multivitamins (Multivitamin 1 Tab Tablet) 1 tab PO QAM [facility] Stop: 10/22/22 08:59 Last Admin: 10/22/21 08:05 Dose: 1 tab Nitroglycerin (Nitroglycerin 0.4 Mg Tab.Subl) 0.4 mg SUBLINGUAL DAILY PRN PRN Reason: Chest Pain Stop: 10/21/22 15:49 Rivaroxaban (Rivaroxaban 10 Mg Tablet) 10 mg PO DAILY [facility] Stop: 10/22/22 08:59 Last Admin: 10/22/21 08:06 Dose: 10 mg Fluticasone/Salmeterol (Fluticasone/Salmeterol 232-14 Mcg 60 Puff Inhaler) 1 puff INHALATION BID [facility] Stop: 10/21/22 20:59 Last Admin: 10/22/21 05:10 Dose: 1 puff Sennosides (Sennosides 8.6 Mg Tablet) 2 tab PO DAILY@12 PRN PRN Reason: If no BM in 2 days Stop: 10/22/22 11:59 Sodium Chloride (Sodium Chloride 0.9 % 10 Ml Syringe) 0 ml IV-PUSH PRN PRN PRN Reason: Flush Stop: 10/21/22 17:50 Spironolactone (Spironolactone 25 Mg Tablet) 25 mg PO QAM [facility] Stop: 10/22/22 08:59 Last Admin: 10/22/21 08:05 Dose: 25 mg Vitamin D (Cholecalciferol 125 Mcg (5,000 Units) Tablet) 250 mcg PO BID [facility] Stop: 10/21/22 20:59 Last Admin: [...] good Judgment: judgment good Results <Chante Narayan, PST MANAGER - Last Filed: 10/22/21 10:24> Labs Labs: Laboratory Results - last 24 hr 10/21/21 10/22/21 10/22/21 20:20 05:59 06:19 Corrected WBC 6.6 Uncorrected WBC Count 6.6 RBC 3.99 Hgb 11.8 L Hct 34.6 L MCV 86.7 MCH 29.5 MCHC 34.0 RDW 17.8 H Plt Count 148 L MPV 8.8 Neut % (Auto) 70.1 Lymph % (Auto) 10.0 [place] % (Auto) 14.8 Eos % (Auto) 4.5 Baso % (Auto) 0.6 Neut # (Auto) 4.6 Lymph # (Auto) 0.7 L [place] # (Auto) 1.0 H Eos # (Auto) [...] MPV Neut % (Auto) Lymph % (Auto) [place] % (Auto) Eos % (Auto) Baso % (Auto) Neut # (Auto) Lymph # (Auto) [place] # (Auto) Eos # (Auto) Baso # [...] 14 days Expected Discharge Destination: Home Rehabilitation [facility]: 05.4 Primary Diagnosis: Right BKA Patient?s/Family?s anticipated [...] 24 hour daily monitoring and intervention from Cobbler Mckay as well as other consulting physicians including internal medicine as well as 24 hour daily technology solutions architect nursing - for medical safe / optimal [...] greater than 30 minutes for services, including vuin-rx-cslc encounter with the patient, discussion of the case, plan of care, and exam; and sdsilmz-xs-eype activities, such as reviewing pertinent python consultant documentation, recent therapy notes, laboratory and radiology studies, and discussion of case with care team including physician, nursing, child support case officer, and therapists. More than 50 % of [...] Allied health note review, nursing note review, python consultant note review, discussion with nursing and [...] chart, including current orders, allied health and python consultant notes, labs/imaging and performed rosado elements of exam and I formulated the plan of care and facilitated the medical decision making and confirmed the nurse practitioner note, as above Documented By: Chante Narayan APRN 10/22/21 0 949 Signed By: <Electronically signed by KRUNAL Narayan> 10/22/21 1024 <Electronically signed by Ghanshyam Kaye MD> 10/25/21 0936 [facility] Work Phone: 1(745) 263-346707-24-2022 Progress note Author Bronwyn Alegre [facility] October 23, 2021 3:11pm Note Date/Time October 23, 2021 3:11 pm [facility] [address] [place] [address] Hospitalist Progress Note Signed Patient: Anai Goodman MR#: [id number] : 1955 Acct:[id number] Age/Sex: 66 / M Adm Date: 2 Loc: Room: [address] [place] [address] Type : ADM IN Attending Dr: Ghanshyam [...] mg 10/21/21 17:51 Bisacodyl 10 Mg Supp.Rect MN 10/21/22 17:50 DAILY PRN Constipation Bumetanide 1 [...] 17:51 Docusate Enema 283 Mg/5 Ml Enema MN 10/21/22 17:50 DAILY PRN Constipation Insulin Aspart 0 units 10/21/21 17:00 10/23/21 13:13 Insulin Aspart 300 Units/3 Ml Insuln.Pen SUBCUT 10/21/22 16:59 2 units TID.WM. CB Administration Protocol Insulin Aspart 0 units 10/21/21 17:00 10/23/21 13:14 Insulin Aspart 300 Units/3 Ml Insuln.Pen SUBCUT 10/21/22 16:59 5 units TID.WITH.MEALS.[facility] Administration Protocol Insulin Detemir 40 units [...] Losartan, Spironolactone 2.? GRACY on CPAP 3. [id number]-J5l 7.3, continue detemir, SSI 4. CKD 3?trend [...] and out patient providers to obtain [facility] record entirely to follow up on illnesses, symptoms, abnormal findings that I have and have not addressed duringthis encounter and hospitalization in out patient setting. Documented By: Bronwyn Alegre MD 10/23/21 4440 Signed By: <Electronically signed by Bronwyn Alegre MD> 10/23/21 1511 [facility] Work Phone: [phone]) 925-305007-24-2022 Consult note Author Bronwyn Alegre [facility] October 23, 2021 7:04am Note Date/Time October 22, 2021 4:18 pm [facility] [address] [place] [address] Hospitalist Consult Note Signed Patient: Anai Goodman MR#: [id number] : 1955 Acct:[id number] Age/Sex: 66 / M Adm Date: 2 Loc: Room: [address] [place] [address] Type : ADM IN Attending Dr: Ghanshyam [...] negative unless noted below or in HPI [facility] Attestation Statement: The following information was validated [...] mg 10/21/21 17:51 Bisacodyl 10 Mg Supp.Rect MN 10/21/22 17:50 DAILY PRN Constipation Bumetanide 2 mg 10/21/21 21:00 10/22/21 08:02 Bumetanide 2 Mg Tablet PO 10/21/22 20:59 2 mg BID BC Administration Carvedilol 6.25 mg 10/21/21 21:00 10/22/21 08:02 Carvedilol 6.25 Mg Tablet PO 10/21/22 20:59 6.25 mg BID CB Administration Docusate Sodium 100 mg 10/21/21 17:51 Docusate 100 Mg Capsule PO 10/21/22 17:50 BID PRN Constipation Docusate Sodium 283 mg 10/21/21 17:51 Docusate Enema 283 Mg/5 Ml Enema MN 10/21/22 17:50 DAILY PRN Constipation Insulin Aspart 0 units 10/21/21 17:00 10/22/21 12:45 Insulin Aspart 300 Units/3 Ml Insuln.Pen SUBCUT 10/21/22 16:59 2 units TID.WM.[facility] Administration Protocol Insulin Aspart 0 units 10/21/21 17:00 10/22/21 12:46 Insulin Aspart 300 Units/3 Ml Insuln.Pen SUBCUT 10/21/22 16:59 2 units TID.WITH.MEALS.[facility] Administration Protocol Insulin Detemir 40 units 10/21/21 22:00 10/21/21 22:02 Insulin Detemir 300 Units/3 Ml Insuln.Pen SUBCUT 10/21/22 21:59 40 units [facility] Administration Lactulose 30 gm 10/21/21 17:51 [...] % (Auto) 70.1, Lymph % (Auto) 10.0, [place] % (Auto) 14.8, Eos % (Auto) 4.5, Baso % (Auto) 0.6, Neut # (Auto) 4.6, Lymph # (Auto) 0.7 L, [place] # (Auto) 1.0 H, Eos # (Auto) [...] Losartan, Spironolactone 2.? GRACY on CPAP 3. I3VF-K2z 7.3, continue detemir, SSI 4. CKD 3?trend labs Documented By: ABDIRASHID Olmedo 2 1618 Signed By: <Electronically signed by ANP-BC Faviola Matias> 10/22/21 1658 <Electronically signed by Bronwyn Alegre MD> 10/23/21 0704 [facility] Work Phone: 1(643) 345-557407-22-2022 Progress note Author Rodriguez Loera [facility] October 21, 2021 8:37am Note Date/Time October 20, 2021 11:0 8am [facility] [address] [place] [address] Hospitalist Progress Note Signed Patient: Anai Goodman MR#: [id number] : 1955 Acct:[id number] Age/Sex: 66 / M Adm Date: 2 Loc: 4N Room: 9E6423-4 Type : ADM IN Attending Dr: Reddy [...] Lactated Ringers IV 10/18/22 07:29 Not Given .[id number] CB Insulin Aspart 0 units 10/18/21 08:00 [...] signed by Rodriguez Loera MD> 10/21/21 0837 [facility] Work Phone: 1(703) 974-868707-21-2022 Progress note Author Rodriguez Loera [facility] October 20, 2021 8:45am Note Date/Time October 19, 2021 11:2 8am [facility] [address] [place] [address] Hospitalist Progress Note Signed Patient: Anai Goodman MR#: [id number] : 1955 Acct:[id number] Age/Sex: 66 / M Adm Date: 2 Loc: 4N Room: [address] [place] [address] Type : ADM IN Attending Dr: Reddy [...] Lactated Ringers IV 10/18/22 07:29 75 mls/hr .[id number] CB Administration Insulin Aspart 0 units 10/18/21 [...] signed by Rodriguez Loera MD> 10/20/21 0845 [facility] Work Phone: [phone]) 474-676207-20-2022 Progress note Author Reddy Brandt [facility] October 19, 2021 12:11pm Note Date/Time October 19, 2021 12:1 1pm [facility] [address] [place] [address] Orthopedic Progress Note Signed Patient: Anai Goodman MR#: [id number] : 1955 Acct:[id number] Age/Sex: 66 / M Adm Date: 2 Loc: 4N Room: [address] [place] [address] Type : ADM IN Attending Dr: Reddy [...] signed by Reddy Brandt DO> 10/19/21 1211 [facility] Work Phone: [phone] Consult note Author Stewart Lucio [facility] October 19, 2021 1:42am Note Date/Time October 19, 2021 1:11 am [facility] [address] [place] [address] Hospitalist Consult Note Signed Patient: Anai Goodman MR#: [id number] : 1955 Acct:[id number] Age/Sex: 66 / M Adm Date: 2 Loc: 4N Room: [address] [place] [address] Type : ADM IN Attending Dr: Reddy [...] negative unless noted in the HPI below [facility] Attestation Statement: The following information was validated [...] Lactated Ringers IV 10/18/22 07:29 75 mls/hr .[id number] CB Administration Cefazolin Sodium 1 gm in [...] Ml Insuln.Pen SUBCUT 10/18/22 07:59 6 units TID.WM.[facility] Administration Protocol Insulin Aspart 0 units 10/18/21 17:00 10/18/21 23:37 Insulin Aspart 300 Units/3 Ml Insuln.Pen SUBCUT 10/18/22 16:59 Not Given TID.WM.[facility] Insulin Detemir 40 units 10/18/21 22:00 10/18/21 21:39 Insulin Detemir 300 Units/3 Ml Insuln.Pen SUBCUT 10/18/22 21:59 40 units [facility] Administration Losartan Potassium 25 mg 10/19/21 09:00 Losartan 25 Mg Tablet PO 10/19/22 08:59 QAM [facility] Magnesium Oxide 400 mg 10/19/21 09:00 Magnesium Oxide 400 Mg Tablet PO 10/19/22 08:59 QAM [facility] Multivitamins 1 tab 10/19/21 09:00 Multivitamin 1 Tab Tablet PO 10/19/22 08:59 QAM [facility] Nitroglycerin 0.4 mg 10/18/21 15:44 [...] 60 Puff Inhaler INHALATION 10/19/22 08:59 BID [facility] Sodium Chloride 0 ml 10/18/21 14:00 [...] signed by Stewart Lucio MD> 10/19/21 0142 [facility] Work Phone: [phone]) 433-418807-13-2022 Evaluation note* Encounter Date Diagnosis Assessment Notes [...] poor healing. I have advised against the care home use of narcotic pain medication. I have [...] osteomyelitis of right tibia (ICD-10 - M86.661) [facility] Other 07-07-2022 Evaluation note* Encounter Date Diagnosis Assessment Notes Treatment Notes Treatment Clinical Notes Sep, Other chronic osteomyelitis of right tibia (ICD-10 - M86.661) [facility] Other 07-07-2022 Evaluation note* Encounter Date Diagnosis [...] place his pacemaker into MRI mode. Anyway engineering tech was very helpful and she is [...] worse they are to call me WALT. [facility] Other 06-09-2022 Evaluation note* Encounter Date Diagnosis [...] to a suppressive dose at that time [facility] Other 11-23-2021 NoteChief Complaint Basal cell carcinoma [...] 03/03/2021 PATIENT : 1955 LOCATION OF PROCEDURE[facility] SURGEON: Chirag Gutierrez DO INFORMED CONSENT: Obtained by and on file at [facility] CC: [Basal cell carcinoma left ear [...] get a repeat audiogr (more content not included)...[facility]10-11-2021 NoteChief Complaint Open wound Left ear History of Present Illness PLANNED PROCEDURE: Excision and preparation of surgical site, complex plastics myocutaneous advancement flap tear of left ear defect DATE OF PROCEDURE: 01/11/2021 PATIENT : 1955 LOCATION OF PROCEDURE: [facility], SURGEON: Chirag Gutierrez DO INFORMED CONSENT: Obtained by and on file at [facility] CC: Basal cell carcinoma left ear [...] reconstruction amputation of le (more content not included)...[facility] 01-05-2021 NoteChief Complaint MOHs procedure to [...] Dr. Freed. Previous pathology by physician in [place] about 1 year ago. PMHx of multiple [...] This patient presented to the [facility] with a chief [...] and corroborated preoperatively wit (more content not included)...[facility]10-06-2021 NoteClinical Information Procedure: Excision with frozen section left ear Pre-operative diagnosis: Basal cell carcinoma Outside pathology report from [facility] was received with accession number [id number]. SP Specimen A Skin of left ear, [...] skin without gross lesi (more content not included)...[facility]:Performed By: #### SPR ####[facility] (DEFAULT)[address] [place], [place] [address]Discharge summary Author Ghanshyam Kaye [facility] October 28, 2021 10:30am Note Date/Time October 27, 2021 1:34 pm [facility] [address] [place] [address] Discharge Summary Signed Patient: Anai Goodman MR#: [id number] : 1955 Acct:[id number] Age/Sex: 66 / M Adm Date: 2 Loc: Room: 7E0635-[address]: Ghanshyam Kaye MD Copies to: [...] old male who was admitted to [facility] rehabfor strengthening s/p planned right [...] was on Xarelto while inpatient. Per [facility] pharmacy , insurance co-pay would be [...] old male who was admitted to [facility] inpatient rehabfor strengthening s/p planned right [...] was on Xarelto while inpatient. Per [facility] pharmacy , insurance co-pay would be [...] Glucose Comment Glu2: cleaned meter Exam <Chante RKUNAL Narayan - Last Filed: 10/27/21 13:34> Physical [...] home prior. Your Home Health agency is [facility] ( ). They will usually contact you [...] them prior to your appointment. Instructions: Amputation, Batmz-tjq-Cegu (DC) Stand Alone Forms: Insulin Corrective Scale [...] signed by Ghanshyam Kaye MD> 10/28/21 1030 [facility] Work Phone: Evaluation noteNo [email or web address] Other Evaluation note* Diagnosis Onset Date Resolution Status Below knee amputation acute Type 2 diabetes mellitus acu te [facility] Work Phone: Evaluation note* Diagnosis [...] wound of skin acute Wound dehiscence acute [facility] Work Phone: Evaluation note* Diagnosis Onset Date Resolution Status Below knee amputation acute Dehiscence of wound of skin acute Wound dehiscence acute [facility] Work Phone: Evaluation noteNo assessment information available [facility] Work Phone: Evaluation note* Diagnosis Preop cardiovascular exam- Primary Pre-operative cardiovascular examination Coronary artery disease involving [place] coronary artery of [place] heart without angina pectoris Ischemic cardiomyopathy Other specified forms of chronic ischemic heart disease Chronic systolic congestive heart failure ([facility]) Apical mural thrombus Essential (primary) hypertension Unspecified essential hypertension Cardiac defibrillator in place- [employer] Automatic implantable cardiac defibrillator in situ Mixed hyperlipidemia [facility] Diagnosis Type 2 diabetes mellitus with diabetic neuropathic arthropathy, with long-term current use of insulin ([facility]) [facility]* Diagnosis Pure hypercholesterolemia documented [facility]* Diagnosis Chronic systolic congestive heart failure ([facility]) [facility]* Diagnosis Sarcoidosis with granulomatous hepatitis [facility]* Diagnosis Type 2 diabetes mellitus with diabetic neuropathic arthropathy, with long-term current use of insulin ([facility]) documented in this encounter [facility] N[facility] - Reported* Type Description Date Medical History DM1 Medical History HTN Medical History HYPERLIPEDEMIA Surgical History LEFT FOOT SURGERY WITH REMOVAL OF ALL FIVE TOES Surgical History heart cath with [address] placem ent Hospitalization History MRSA 2011 Hospitalization History Heart [facility] Other [facility] general Narrative - Reported* Type Description Date Medical History DM1 Medical History HTN Medical History HYPERLIPEDEMIA Surgical History LEFT FOOT SURGERY WITH REMOVAL OF ALL FIVE TOES Surgical History heart cath with 5 stents placem ent Surgical History right transtibial be low-knee amputation, right fibular osteotomy 10/17/21 Hospitalization History MRSA 2011 Hospitalization History Heart [facility] Other [facility] general Narrative - Reported* Type Description Date [...] Heart Hospitalization History see above surg. hx. [facility] Other InstructionsNot on filedocumented in this encounter [facility] encounter [facility] filedocumented in this encounter [facility] on filedocumented in this encounter [facility] on filedocumented in this encounter [facility] Purpose Family History No Family [...] yelitis of right tibia (M86.661) Referral Organization [facility] Referring Provider First Name [...] section and content) DATE CREATED AUTHOR 05/12/[address] [facility] DATE CREATED AUTHOR AUTHOR'S ORGANIZ ATION 05/26/2021 [facility] DATE CREATED AUTHOR AUTHOR'S ORGANIZ ATION 08/23/2021 [facility] DATE CREATED AUTHOR AUTHOR'S ORGANIZ ATION 11/02/[address] [facility] DATE CREATED AUTHOR AUTHOR'S ORGANIZ ATION 04/15/2023 [facility] DATE CREATED AUTHOR AUTHOR'S ORGANIZ ATION 06/29/2023 [facility] DATE CREATED AUTHOR AUTHOR'S ORGANIZ ATION 08/03/2023 [facility] DATE CREATED AUTHOR AUTHOR'S ORGANIZ ATION 08/04/2023 [facility] DATE CREATED AUTHOR AUTHOR'S ORGANIZ ATION 09/07/2023 [facility] DATE CREATED AUTHOR AUTHOR'S ORGANIZ ATION 10/03/2023 [facility] REASON FOR VISIT (unrecogniz ed section and content) Reason Comments Pre-op Exam EST PT PRE OP DR MARIXA Brwon SURG DR LEE Reason Onset Date Comments [...] Murillo MD Other Provider Active Mai Britton RIGGING SUPERVISOR-C Other Provider Active Christiano Evans MD Other Provider Active Isidro Antunez MD Other Provider Active Rosalind Coburn MD Other Provider Active Bill Osei MD Other Provider Active Lizbeth Mcbride , DO Other Provider Active Fabio Sanchez MD Other Provider Active Kwesi Muhammad , DO Other Provider Active Bre Patel PST MANAGER Other Provider Active Bin Carrera , DO Other Provider Active Patti Taylor MD Other Provider Active Kassandra Munoz , NBA Other Provider Active Team Status: Inactive Member Role Status Dates Deon Braxton , DO Primary Care Provider Active Reddy Brandt , DO Referring Provider Active Darien Bailey RIGGING SUPERVISOR-C Attending Provider Activ e Team Status: Active [...] MD Other Provider Active Mai Britton , RIGGING SUPERVISOR-C Other Provider Active Christiano Evans MD Other [...] DO Admit Provider, Attending Provide r Active [employer] Relationship Specialty Start Date End Date Deon Braxton, DO [address] [place] [address] PCP - General Internal Medicine 01/22/17 [employer]er Relationship Specialty Start Date End Date Deon Braxton DO [address] [place] [address] PCP - General Internal Medicine 01/22/17 Team Status: Inactive Member Role Status Dates Deon Braxton DO Primary Care Provider Active Sta rt: April 19, 2023 End: April 19, 2023 Salina Lee DPM MS Attending Provider Active Start: April 19, 2023 End: April 19, 2023 [employer] Grower Relationship Specialty Start Date End Date Deon Braxton DO [address] [place] [address] PCP - General Internal Medicine 01/22/17 [employer] Grower Relationship Specialty Start Date End Date Deon Braxton DO [address] [place] [address] PCP - General Internal Medicine 01/22/17 [employer] Grower Relationship Specialty Start Date End Date Deon Braxton DO [address] [facility] [place] [address] PCP - General Internal Medicine 01/22/17 Goals [...] BE BASED ON THE PRIMARY CLINICAL RECORDS. [employer] provides no warranty or guarantee of the accuracy or completeness of information in this document.
== END 2023-10-26 09:37 | disposition home or self-care (01) ==
LOC: WC 09:36
PROVIDERS: PCP Internal Medicine; Visit Provider Podiatrist Foot & Ankle Surgery
DX: S91.002A Unspecified open wound, left ankle, initial encounter (principal); M65.072 Abscess of tendon sheath, left ankle and foot; M86.472 Chronic osteomyelitis with draining sinus, left ankle and foot; L60.3 Nail dystrophy; L03.818 Cellulitis of other sites; E11.69 Type 2 diabetes mellitus with other specified complication; E11.21 Type 2 diabetes mellitus with diabetic nephropathy; E11.610 Type 2 diabetes mellitus with diabetic neuropathic arthropathy; M20.41 Other hammer toe(s) (acquired), right foot; M24.571 Contracture, right ankle
CPT/HCPCS: 11043

== ENCOUNTER 2023-10-30 15:23 | Outpatient (OUT) | payer MEDICARE, SELFPAY | END 2023-10-30 15:24 | disposition home or self-care (01) | LOC: WC 15:23 | PROVIDERS: PCP Internal Medicine; Visit Provider Physician Assistant | DX: S91.002A Unspecified open wound, left ankle, initial encounter (principal) | CPT/HCPCS: A6213; G0463 ==

== ENCOUNTER 2023-11-01 15:22 | Outpatient (OUT) | payer MEDICARE, SELFPAY | END 2023-11-01 15:23 | disposition home or self-care (01) | LOC: WC 15:23 | PROVIDERS: PCP Internal Medicine; Visit Provider Physician Assistant | DX: S91.002A Unspecified open wound, left ankle, initial encounter (principal) | CPT/HCPCS: G0463 ==

== ENCOUNTER 2023-11-05 15:51 | Outpatient (OUT) | payer MEDICARE, SELFPAY | END 2023-11-05 15:52 | disposition home or self-care (01) | LOC: WC 15:51 | PROVIDERS: PCP Internal Medicine; Visit Provider Physician Assistant | DX: S91.002A Unspecified open wound, left ankle, initial encounter (principal) | CPT/HCPCS: G0463 ==

== ENCOUNTER 2023-11-08 14:25 | Outpatient (OUT) | payer MEDICARE, SELFPAY | END 2023-11-08 14:26 | disposition home or self-care (01) | LOC: WC 14:35 | PROVIDERS: PCP Internal Medicine; Visit Provider Podiatrist Foot & Ankle Surgery | DX: S91.002A Unspecified open wound, left ankle, initial encounter (principal) | CPT/HCPCS: G0463 ==

== ENCOUNTER 2023-11-12 16:17 | Outpatient (OUT) | payer MEDICARE, SELFPAY | END 2023-11-12 16:18 | disposition home or self-care (01) | LOC: WC 16:18 | PROVIDERS: PCP Internal Medicine; Visit Provider Physician Assistant | DX: S91.002A Unspecified open wound, left ankle, initial encounter (principal) | CPT/HCPCS: A6213; G0463 ==

== ENCOUNTER 2023-12-04 15:34 | Outpatient (OUT) | payer MEDICARE, SELFPAY | END 2023-12-04 15:35 | disposition home or self-care (01) | LOC: WC 15:34 | PROVIDERS: PCP Internal Medicine; Visit Provider Physician Assistant | DX: S91.002A Unspecified open wound, left ankle, initial encounter (principal) | CPT/HCPCS: G0463 ==